=== PATIENT | male | born 1940 | race African-American/Black ===

== ENCOUNTER 2019-06-10 14:22 | Inpatient (IN) | payer MEDICAID ==
[~2019-06-10] VITALS: Ht 162.6 cm; Wt 68.0 kg
[2019-06-10] MEDS: Metoprolol Tartrate 100mg tab GT SCH ×2 (09:00→22:03)
[2019-06-10 14:22] VITALS: BP 155/54
--- NOTE | 2019-06-10 14:22 | NUR ---
ED Nurse Note: Pt arrived with [facility] 280 from SNF due edema. pt has a trach. pt is aox0. pt is responsive to pain. pt iv line established patent and intact. RT at bedside. pt kat catheter placed; patent and draining. pt laced on monitor. swabs completed.
--- NOTE | 2019-06-10 14:39 | Emergency Room Report ---
History of Present Illness General Chief Complaint: Abnormal Labs Source: EMS Present Illness HPI 78-year-old male history of pneumonia, subdural hematoma, bedbound, tracheostomy dependent presented for abnormal laboratory studies. Apparently patient had outpatient laboratory studies yesterday showing elevated BUN and creatinine. Patient was also noted to be edematous diffusely. There was no reported fever. History is otherwise limited due to patient's baseline mental status. Allergies: Coded Allergies: No Known Allergies (Unverified , 06/10/19) COVID-19 Screening Contact w/high risk pt: No Recent Travel to affected area: No Experienced COVID-19 symptoms?: No Patient History Reviewed Nursing Documentation: PMH: Agreed; PSxH: Agreed Nursing Documentation-PMH Hx Hypertension: Yes Hx Diabetes: Yes Review of Systems All Other Systems: limited - History limited due to patient's baseline altered mental status Physical Exam Vital Signs Date Time Temp Pulse Resp B/P (MAP) Pulse Ox O2 Delivery O2 Flow Rate FiO2 06/10/19 14:21 97.9 61 16 146/86 (106) 99 Mechanical Ventilator 4.0 Sp02 EP Interpretation: reviewed, normal General Appearance: no apparent distress, Chronically Ill Head: normocephalic, atraumatic Eyes: bilateral eye PERRL, bilateral eye EOMI ENT: hearing grossly normal, moist mucus membranes Neck: supple, other - Tracheostomy in place Respiratory: lungs clear, normal breath sounds, no respiratory distress, no retraction, no wheezing Cardiovascular #1: normal peripheral pulses, regular rate, rhythm, no murmur, edema - Diffuse anasarca noted Gastrointestinal: non tender, soft, non-distended, no guarding Neurologic: other - Patient nonverbal at baseline. Withdraws to pain, extremities contracted Skin: normal color, warm/dry Medical Decision Making Diagnostic Impression: Primary Impression: Anasarca Additional Impressions: Pulmonary edema Uremia Chronic respiratory failure ER Course MDM: Patient presented with acute on chronic kidney disease, anasarca. Differential included renal insufficiency, fluid overload, CHF, to name a few Clinical course-laboratory studies ordered. Chest x-ray ordered. Chest x-ray did demonstrate pulmonary edema. I think less likely infiltrate as patient afebrile no leukocytosis on baseline ventilator settings. Patient had diffuse edema. IV Lasix ordered. Avalos catheter in place. Patient does require admission to the hospital for diuresis. Patient admitted under his primary care physician, Dr. Ramirez. Labs - Laboratory Tests Test 06/10/19 14:42 06/10/19 15:07 06/10/19 15:50 06/10/19 15:53 Sodium Level 134 MMOL/L (136-145) L Potassium Level 3.5 MMOL/L (3.5-5.1) Chloride Level 103 MMOL/L (98-107) Carbon Dioxide Level 19 MMOL/L (21-32) L Anion Gap 12 mmol/L (5-15) Blood Urea Nitrogen 97 mg/dL (7-18) H Creatinine 1.9 MG/DL (0.55-1.30) H Estimated Glomerular Filtration Rate 34.5 mL/min (>60) Glucose Level 134 MG/DL (74-106) H Lactic Acid Level 0.80 mmol/L (0.4-2.0) Calcium Level 9.5 MG/DL (8.5-10.1) Total Bilirubin 0.4 MG/DL (0.2-1.0) Aspartate Amino Transferase (AST) 79 U/L (15-37) H Alanine Aminotransferase (ALT) 108 U/L (12-78) H Alkaline Phosphatase 528 U/L (46-116) H Total Creatine Kinase 54 U/L (26-308) Creatine Kinase MB 1.2 NG/ML (0.0-3.6) Creatine Kinase MB Relative Index 2.2 Troponin I 0.019 ng/mL (0.000-0.056) Total Protein 8.2 G/DL (6.4-8.2) Albumin 2.1 G/DL (3.4-5.0) L Globulin 6.1 g/dL Albumin/Globulin Ratio 0.3 (1.0-2.7) L Urine Color Pale yellow Urine Appearance Clear Urine pH 5 (4.5-8.0) Urine Specific [place] 1.005 (1.005-1.035) Urine Protein 2+ (NEGATIVE) H Urine Glucose (UA) Negative (NEGATIVE) Urine Ketones Negative (NEGATIVE) Urine Blood Negative (NEGATIVE) Urine Nitrite Negative (NEGATIVE) Urine Bilirubin Negative (NEGATIVE) Urine Urobilinogen Normal MG/DL (0.0-1.0) Urine Leukocyte Esterase 3+ (NEGATIVE) H Urine RBC 0-2 /HPF (0 - 0) H Urine WBC 10-15 /HPF (0 - 0) H Urine Squamous Epithelial Cells None /LPF (NONE/OCC) Urine Bacteria Few /HPF (NONE) Arterial Blood pH 7.316 (7.350-7.450) Arterial Blood Partial Pressure CO2 43.9 mmHg (35.0-45.0) Arterial Blood Partial Pressure O2 118.1 mmHg (75.0-100.0) H Arterial Blood HCO3 21.9 mmol/L (22.0-26.0) L Arterial Blood Oxygen Saturation 98.2 % (95-100) Arterial Blood Base Excess -4.1 (-2-2) L Benedict Test Positive White Blood Count 24.4 K/UL (4.8-10.8) *H Red Blood Count 3.26 M/UL (4.70-6.10) L Hemoglobin 8.9 G/DL (14.2-18.0) L Hematocrit 30.3 % (42.0-52.0) L Mean Corpuscular Volume 93 FL (80-99) Mean Corpuscular Hemoglobin 27.4 PG (27.0-31.0) Mean Corpuscular Hemoglobin Concent 29.5 G/DL (32.0-36.0) L Red Cell Distribution Width 20.2 % (11.6-14.8) H Platelet Count 378 K/UL (150-450) Mean Platelet Volume 8.0 FL (6.5-10.1) Neutrophils (%) (Auto) % (45.0-75.0) Lymphocytes (%) (Auto) % (20.0-45.0) Monocytes (%) (Auto) % (1.0-10.0) Eosinophils (%) (Auto) % (0.0-3.0) Basophils (%) (Auto) % (0.0-2.0) Neutrophils % (Manual) Pending Lymphocytes % (Manual) Pending Platelet Estimate Pending Platelet Morphology Pending On reevaluation: Patient's condition remained the same. IV Lasix had been given. Plan-plan to admit to the stepdown unit EKG Diagnostic Results Rate: normal Rhythm: other - Paced rhythm ST Segments: no acute changes Other Impression Abnormal EKG Chest X-Ray Diagnostic Results Chest X-Ray Diagnostic Results : Chest X-Ray Ordered: Yes # of Views/Limited/Complete: 1 View Indication: Shortness of Breath EP Interpretation: Yes Interpretation: other - Bilateral pulmonary edema with bilateral effusions. Impression: Other - Pulmonary edema Electronically Signed by: Estevan Watkins MD Last Vital Signs Date Time Temp Pulse Resp B/P (MAP) Pulse Ox O2 Delivery O2 Flow Rate FiO2 06/10/19 14:21 97.9 61 16 146/86 (106) 99 Mechanical Ventilator 4.0 Status: unchanged Disposition: ADMITTED INPATIENT Condition: Serious Estevan Watkins M.D. June 10, 2019 14:39
--- NOTE | 2019-06-10 15:00 | NUR ---
ED Nurse Note: urine, blood, culture specimen collected and sent to lab
[2019-06-10] MEDS ORDERED: METOPROLOL TAR100 MG ORAL (15:22)
[2019-06-10] MEDS ORDERED: LOSARTAN POTASS50 MG ORAL (15:22)
[2019-06-10] MEDS ORDERED: PROTONIX40 MG ORAL (15:22)
[2019-06-10] MEDS ORDERED: FERROUS SULFAT325 MG ORAL (15:22)
[2019-06-10] MEDS ORDERED: EPOGEN10000 UNIT SUBQ (15:22)
[2019-06-10] MEDS ORDERED: ASCORBIC ACID500 MG ORAL (15:22)
[2019-06-10] MEDS ORDERED: MULTIVITAMINS1 EAC8 ORAL (15:22)
[2019-06-10] MEDS ORDERED: HYDRALAZINE HC100 MG ORAL (15:22)
[2019-06-10] MEDS ORDERED: NEPHROVITE1 TAB ORAL (15:22)
[2019-06-10] MEDS ORDERED: HUMALOG100 UNIT/4 SUBQ (15:22)
[2019-06-10] MEDS ORDERED: PROBIOTIC1 EAC2 PO (15:22)
[2019-06-10] MEDS ORDERED: POTASSIUM CHLO20 ME3 PO (15:22)
--- NOTE | 2019-06-10 15:27 | NUR ---
ED Nurse Note: xray at bedside
[2019-06-10 15:33] LABS: APPEARANCE,URINE CLEAR; BILIRUBIN, URINE NEGATIVE (NEGATIVE); COLOR,URINE PALE YELLOW; GLUCOSE, URINE (UA) NEGATIVE (NEGATIVE); KETONES,URINE NEGATIVE (NEGATIVE); LEUKOCYTE ESTERASE ,URINE 3+ (NEGATIVE); NITRITE,URINE NEGATIVE (NEGATIVE); PH,URINE 5 (4.5-8.0); PROTEIN,URINE 2+ (NEGATIVE); UROBILINOGEN,URINE NORMAL MG/DL (0.0-1.0)
[2019-06-10 15:40] LABS: ANION GAP 12 mmol/L (5-15); BLOOD UREA NITROGEN 97 mg/dL (7-18); CALCIUM 9.5 MG/DL (8.5-10.1); CARBON DIOXIDE 19 MMOL/L (21-32); CHLORIDE 103 MMOL/L (98-107); CREATININE 1.9 MG/DL (0.55-1.30); POTASSIUM 3.5 MMOL/L (3.5-5.1); SODIUM 134 MMOL/L (136-145)
--- NOTE | 2019-06-10 15:50 | NUR ---
ED Nurse Note: TO G per ermd
[2019-06-10 15:55] LABS: ALANINE AMINOTRANSFERASE 108 U/L (12-78); ALBUMIN 2.1 G/DL (3.4-5.0); ALBUMIN/GLOBULIN RATIO 0.3 (1.0-2.7); ALKALINE PHOSPHATASE 528 U/L (46-116); ASPARTATE AMINO TRANSFERASE 79 U/L (15-37); BILIRUBIN,TOTAL 0.4 MG/DL (0.2-1.0); CKMB 1.2 NG/ML (0.0-3.6); CREATINE KINASE 54 U/L (26-308)
--- NOTE | 2019-06-10 16:02 | Diagnostic Imaging Report ---
EXAM: XR Chest, 1 View CLINICAL HISTORY: SOB TECHNIQUE: Frontal view of the chest. COMPARISON: None FINDINGS: Hardware: Tracheostomy tube terminates in the region of the upper/mid thoracic trachea. Lungs/pleura: Bilateral pleural effusions. Opacities throughout right greater than left lungs, concerning for pulmonary edema and/or infectious/inflammatory process. Heart/mediastinum: Mild enlargement of the cardiac silhouette. Atherosclerotic calcifications of the aorta. Left-sided pacemaker. Soft tissues: Unremarkable. Bones: No acute fracture. Degenerative changes of the spine Upper abdomen: Normal. IMPRESSION: Bilateral pleural effusions. Opacities throughout right greater than left lungs, concerning for pulmonary edema and/or infectious/inflammatory process.
[2019-06-10 16:20] VITALS: BP 141/50
[2019-06-10 16:23] LABS: HEMATOCRIT 30.3 % (42.0-52.0); HEMOGLOBIN 8.9 G/DL (14.2-18.0); MEAN CORPUSCULAR VOLUME 93 FL (80-99); PLATELET COUNT 378 K/UL (150-450); RED BLOOD COUNT 3.26 M/UL (4.70-6.10); RED CELL DISTRIBUTION WIDTH 20.2 % (11.6-14.8)
[2019-06-10 16:25] LABS: WHITE BLOOD COUNT 24.4 K/UL (4.8-10.8)
--- NOTE | 2019-06-10 16:30 | NUR ---
ED Nurse Note: Pt in bed, VSS, NAD noted.
--- NOTE | 2019-06-10 17:11 | NUR ---
ED Nurse Note: telephone report given to TAMICA Olvera
--- NOTE | 2019-06-10 17:25 | NUR ---
TRANSFER TO FLOOR: Patient transferred to [facility] as ordered, per ermd. Report given to kyle najera. Myriam has no belongings
--- NOTE | 2019-06-10 18:05 | NUR ---
NURSE NOTES: Received patient report from TAMICA Lundberg from ER. Patient came in by juan. alarm security or surveillance monitor initiatiated, physical assessment done, wound pictures taken and uploaded, and vital signs taken and recorded. Under the care of Dr. Sparrow. No belongings found. Will call Dr. Sparrow for admission order.
[2019-06-10 18:44] VITALS: BP 147/79
--- NOTE | 2019-06-10 19:09 | NUR ---
HAND-OFF: Report given to HALEIGH DAVEY.
[2019-06-10 20:00] VITALS: BP 146/65
--- NOTE | 2019-06-10 20:20 | NUR ---
NURSE NOTES: Called Attending and left message for Admission orders, awaiting for call back/
--- NOTE | 2019-06-10 20:45 | NUR ---
NURSE NOTES: Admission ordered received from Dr. Mccurdy
--- NOTE | 2019-06-10 20:51 | History & Physical ---
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 Patient noted to be edematous, no reported fever. History is otherwise limited due to patient's baseline mental status. Chronically altered mental status, Ventilator Dependant. Allergies: No Known Allergies Past Medical History Hypertension, Diabetes, previous pneumonia, subdural hematoma, bedbound, tracheostomy dependent Hx Diabetes: Yes All Other Systems: limited - History limited due to patient's baseline altered mental status Physical Exam Vital Signs Noted Date Time Temp Pulse Resp B/P (MAP) Pulse Ox O2 Delivery O2 Flow Rate FiO2 06/10/19 14:21 97.9 61 16 146/86 (106) 99 Mechanical Ventilator 4.0 General Appearance: no apparent distress, Chronically Ill appearing. On Ventilatir Head: normocephalic, atraumatic Eyes: bilateral eye PERRL, bilateral eye EOMI ENT: hearing grossly normal, moist mucus membranes Neck: supple, other - Tracheostomy in place Respiratory: lungs clear, normal breath sounds, no respiratory distress, no retraction, no wheezing Cardiovascular : normal peripheral pulses, regular rate, rhythm,, HS1, HS2, RRR , no murmur, edema - Diffuse anasarca noted Gastrointestinal: non tender, soft, non-distended, no guarding Neurologic: other - Patient nonverbal at baseline. Withdraws to pain, extremities contracted Skin: normal color, warm/dry Impression: Anasarca Pulmonary edema Uremia Chronic respiratory failure on Ventilator Hypertension Diabetes Previous pneumonia Subdural hematoma Bedbound Tracheostomy dependent Plan [employer] Medications AC ventilator settings as previously ABG Adjust FIO2 PRN IV Lasix G tube feeds PPX Monitor labs Renal US Echocardiogram Laboratory Tests Test 06/10/19 14:42 06/10/19 15:07 06/10/19 15:50 06/10/19 15:53 Sodium Level 134 MMOL/L (136-145) L Potassium Level 3.5 MMOL/L (3.5-5.1) Chloride Level 103 MMOL/L (98-107) Carbon Dioxide Level 19 MMOL/L (21-32) L Anion Gap 12 mmol/L (5-15) Blood Urea Nitrogen 97 mg/dL (7-18) H Creatinine 1.9 MG/DL (0.55-1.30) H Estimated Glomerular Filtration Rate 34.5 mL/min (>60) Glucose Level 134 MG/DL (74-106) H Lactic Acid Level 0.80 mmol/L (0.4-2.0) Calcium Level 9.5 MG/DL (8.5-10.1) Total Bilirubin 0.4 MG/DL (0.2-1.0) Aspartate Amino Transferase (AST) 79 U/L (15-37) H Alanine Aminotransferase (ALT) 108 U/L (12-78) H Alkaline Phosphatase 528 U/L (46-116) H Total Creatine Kinase 54 U/L (26-308) Creatine Kinase MB 1.2 NG/ML (0.0-3.6) Creatine Kinase MB Relative Index 2.2 Troponin I 0.019 ng/mL (0.000-0.056) Total Protein 8.2 G/DL (6.4-8.2) Albumin 2.1 G/DL (3.4-5.0) L Globulin 6.1 g/dL Albumin/Globulin Ratio 0.3 (1.0-2.7) L Urine Color Pale yellow Urine Appearance Clear Urine pH 5 (4.5-8.0) Urine Specific [place] 1.005 (1.005-1.035) Urine Protein 2+ (NEGATIVE) H Urine Glucose (UA) Negative (NEGATIVE) Urine Ketones Negative (NEGATIVE) Urine Blood Negative (NEGATIVE) Urine Nitrite Negative (NEGATIVE) Urine Bilirubin Negative (NEGATIVE) Urine Urobilinogen Normal MG/DL (0.0-1.0) Urine Leukocyte Esterase 3+ (NEGATIVE) H Urine RBC 0-2 /HPF (0 - 0) H Urine WBC 10-15 /HPF (0 - 0) H Urine Squamous Epithelial Cells None /LPF (NONE/OCC) Urine Bacteria Few /HPF (NONE) Arterial Blood pH 7.316 (7.350-7.450) Arterial Blood Partial Pressure CO2 43.9 mmHg (35.0-45.0) Arterial Blood Partial Pressure O2 118.1 mmHg (75.0-100.0) H Arterial Blood HCO3 21.9 mmol/L (22.0-26.0) L Arterial Blood Oxygen Saturation 98.2 % (95-100) Arterial Blood Base Excess -4.1 (-2-2) L Benedict Test Positive White Blood Count 24.4 K/UL (4.8-10.8) *H Red Blood Count 3.26 M/UL (4.70-6.10) L Hemoglobin 8.9 G/DL (14.2-18.0) L Hematocrit 30.3 % (42.0-52.0) L Mean Corpuscular Volume 93 FL (80-99) Mean Corpuscular Hemoglobin 27.4 PG (27.0-31.0) Mean Corpuscular Hemoglobin Concent 29.5 G/DL (32.0-36.0) L Red Cell Distribution Width 20.2 % (11.6-14.8) H Platelet Count 378 K/UL (150-450) Mean Platelet Volume 8.0 FL (6.5-10.1) Neutrophils (%) (Auto) % (45.0-75.0) Lymphocytes (%) (Auto) % (20.0-45.0) Monocytes (%) (Auto) % (1.0-10.0) Eosinophils (%) (Auto) % (0.0-3.0) Basophils (%) (Auto) % (0.0-2.0) Neutrophils % (Manual) Pending Lymphocytes % (Manual) Pending Platelet Estimate Pending Platelet Morphology Pending EKG:Rate: normal Rhythm: other - Paced rhythm ST Segments: no acute changes Chest X-Ray - Bilateral pulmonary edema with bilateral effusions. Kenny Mccurdy MD June 10, 2019 20:51
--- NOTE | 2019-06-10 21:40 | NUR ---
NURSE NOTES: 24hour urine start time at 06/10 at 0700 to 06/[address] Abrams orders.
[2019-06-10] MEDS: NovoLOG Insulin Flexpen SUBQ SCH (22:00)
--- NOTE | 2019-06-10 22:00 | NUR ---
NURSE NOTES: All due medications given. Repositioned and suctioned patient along with oral care. Patient has small BM. Patient was cleaned and new linen applied. Patient is afebrile. Pulses present.
[2019-06-10] MEDS: Atorvastatin 20mg tab GT SCH (22:03)
[2019-06-10] MEDS: Heparin 5000 units/ml inj SUBQ SCH (22:04)
[2019-06-11] VITALS: BP 156/75
--- NOTE | 2019-06-11 | NUR ---
NURSE NOTES: Repositioned patient and provided oral care. Vitals are stable and patient remains afebrile. NAD at this time. Urine bag is bright red. Will continue to monitor.
--- NOTE | 2019-06-11 02:00 | NUR ---
NURSE NOTES: Patient repositioned and suctioned. Pulses are present. No new change.
[2019-06-11 04:00] VITALS: BP 154/76
--- NOTE | 2019-06-11 04:00 | NUR ---
NURSE NOTES: Blood drawn and am care performed, Oral care and suctioned patient. Afebrile. Vitals are stable. Patient still making bright red urine. NAD at this time. Patient is clean and dry. Pulses present.
[2019-06-11] MEDS: NovoLOG Insulin Flexpen SUBQ SCH ×4 (05:30→23:16)
[2019-06-11 06:32] LABS: HEMATOCRIT 30.1 % (42.0-52.0); HEMOGLOBIN 9.5 G/DL (14.2-18.0); MEAN CORPUSCULAR VOLUME 87 FL (80-99); PLATELET COUNT 432 K/UL (150-450); RED BLOOD COUNT 3.45 M/UL (4.70-6.10); RED CELL DISTRIBUTION WIDTH 18.6 % (11.6-14.8)
[2019-06-11 06:56] LABS: WHITE BLOOD COUNT 29.4 K/UL (4.8-10.8)
--- NOTE | 2019-06-11 06:56 | NUR ---
RESPIRATORY NOTE: received pt on vent, trached with shiley [address], secured via trach tie. vent settings in place as ordered. no signs of resp distress at this time. secretions when sxn'd are small pale-white and thick. alarms are on and audible with ambu bag at bedside. vent is plugged into the red outlet. will cont to monitor throughout the day.
[2019-06-11 06:58] LABS: ALANINE AMINOTRANSFERASE 91 U/L (12-78); ALBUMIN 2.1 G/DL (3.4-5.0); ALBUMIN/GLOBULIN RATIO 0.3 (1.0-2.7); ALKALINE PHOSPHATASE 474 U/L (46-116); ANION GAP 11 mmol/L (5-15); ASPARTATE AMINO TRANSFERASE 50 U/L (15-37); BILIRUBIN,TOTAL 0.3 MG/DL (0.2-1.0); BLOOD UREA NITROGEN 103 mg/dL (7-18); CALCIUM 9.9 MG/DL (8.5-10.1); CARBON DIOXIDE 23 MMOL/L (21-32); CHLORIDE 103 MMOL/L (98-107); POTASSIUM 2.9 MMOL/L (3.5-5.1); SODIUM 137 MMOL/L (136-145)
--- NOTE | 2019-06-11 07:21 | NUR ---
NURSE NOTES: Received report from Americo DAVEY. Pt in bed awake and unable to follow the direction. No c/o pain. IV site in RAC 20G SL patent and asymptomatic. HOB elevated with greater than 30 degree, call light within easy reach. Side railsx3 up for safety. On vent setting with [id number]% peep 5 with trach Shiley 8 patent and asymptomatic. Sating 98%. G-tube in tact and patent running with Nephro @45ml/hr. Noted pace maker with SR w/v-paced. Will continue plan of care.
--- NOTE | 2019-06-11 07:21 | NUR ---
HAND-OFF: Report given to Cale Marshall RN.
[2019-06-11 08:00] VITALS: BP 154/70
[2019-06-11] MEDS ORDERED: Metoprolol Tartrate 100mg tab ORAL SCH (09:00)
[2019-06-11] MEDS: Nephrovite tab (Rena-Vite) GT SCH (09:03)
[2019-06-11] MEDS: Ascorbic Acid 500mg tab GT SCH (09:03)
[2019-06-11] MEDS: Metoprolol Tartrate 100mg tab GT SCH ×2 (09:04→20:33)
[2019-06-11] MEDS: Ferrous Sulfate 300 MG/5 ML UDC NG SCH ×3 (09:04→17:36)
[2019-06-11] MEDS: Multivitamins W/Minerals 15 ML UDC GT SCH (09:04)
[2019-06-11] MEDS: Heparin 5000 units/ml inj SUBQ SCH ×2 (09:06→20:36)
[2019-06-11] MEDS: Pantoprazole Inj IVP SCH (09:07)
--- NOTE | 2019-06-11 10:00 | NUR ---
NURSE NOTES: Made aware of A-fob and pacemaker on EKG. No cardiology consult needed at this time per Dr. Mccurdy
--- NOTE | 2019-06-11 10:00 | NUR ---
NURSE NOTES: Made Dr. Mccurdy aware of critical values of blood test. ID consult with Dr. Lyle ordered. Made Dr. De Leon aware who covers Dr. Lyle today
--- NOTE | 2019-06-11 10:20 | NUR ---
NURSE NOTES: Made Dr. Frank aware of K+ 2.9 today. KCL 40mEq x1 ordered
[2019-06-11 11:39] VITALS: BP 147/60
[2019-06-11] MEDS: Piperacillin/Tazobactam 3.375 GM in NS 110 ML IVPB SCH ×2 (11:45→23:14)
[2019-06-11] MEDS ORDERED: Piperacillin/Tazobactam 3.375 GM in NS 110 ML IVPB SCH (12:00)
--- NOTE | 2019-06-11 13:21 | NUR ---
NURSE NOTES: Made Nilay Leon aware of critical value of preliminary blood cx results. Vancomycin ordered to continue as scheduled.
[2019-06-11] MEDS ORDERED: Vancomycin 1 GM in D5W 275 ML IVPB SCH (14:00)
[2019-06-11 16:00] VITALS: BP 137/63
--- NOTE | 2019-06-11 18:00 | Consultation ---
DATE OF CONSULTATION: 06/11/2019 INFECTIOUS DISEASES CONSULTATION CONSULTING PHYSICIAN: Real De Leon MD. PRIMARY ATTENDING PHYSICIAN: Kain Ramirez MD. REASON FOR CONSULTATION: Pneumonia, leukocytosis. HISTORY OF PRESENT ILLNESS: The patient is a 78-year-old male admitted yesterday from snf facility because of abnormal labs. He had increase in BUN and creatinine. The patient had leukocytosis of 24.4 yesterday that increased today to 29.4. No fever. He has chronic respiratory failure and is not a source of history. PAST MEDICAL HISTORY: Significant for subdural hematoma, ventilator-dependent respiratory failure, diabetes mellitus, hypertension, anemia, status post tracheostomy, status post G-tube placement. ALLERGIES: No known drug allergies. MEDICATIONS: Epogen, vancomycin, Zosyn, insulin, potassium chloride, ferrous sulfate, multivitamin, Nephro-Eileen, Lasix, Tylenol, atorvastatin, heparin, metoprolol. SOCIAL HISTORY: . residential resident. No other history obtainable. PHYSICAL EXAMINATION: VITAL SIGNS: Temperature 97.9, pulse 77, blood pressure 154/70. GENERAL APPEARANCE: Seems to have normal weight. HEAD AND NECK: Status post tracheostomy. HEART: Normal rate. LUNGS: On mechanical ventilator. ABDOMEN: Soft. EXTREMITIES: Has edema. LABORATORY AND DIAGNOSTIC DATA: WBC 29.4, hemoglobin 9.5, hematocrit 30.1, platelets 432. Sodium 137, potassium 2.9, chloride 103, bicarb 23, BUN 103, creatinine 2, glucose is 173, has elevated transaminase. AST, and ALT and alkaline phosphatase are elevated. Elevated BNP 5313. Albumin is 2.1. Cultures are pending. Chest x-ray showed bilateral effusion,congestion versus infiltrate. IMPRESSION: Pneumonia, we will try to rule out COVID-19 because of residence in the nursing facility, has leukocytosis, renal failure, ventilator-dependent respiratory failure, anemia, elevated transaminase, anasarca, diabetes mellitus, hypertension. RECOMMENDATION: We will follow up the COVID-19. We will continue with Zosyn and vancomycin. We will follow up the cultures. At the end of my exam, I thank Dr. Ramirez, for involving me in the care of this patient. Case was discussed with Dr. Mccurdy who covers from Dr. Ramirez. Real De Leon M.D. DR: Sofie JOB#: [id number] CC: MEG
--- NOTE | 2019-06-11 18:36 | Pulmonology Progress Note ---
Assessment/Plan Assessment/Plan Pulmonary Progress Note HPI Patient is a 78-year-old male, Alf Resident, history of pneumonia, subdural hematoma, bedbound, tracheostomy dependent presented for abnormal laboratory studies with elevated BUN and creatinine. Patient noted to be edematous, no reported fever. History is otherwise limited due to patient's baseline mental status. Chronically altered mental status, Ventilator Dependant. On antibiotics per ID Allergies: No Known Allergies Past Medical History Hypertension, Diabetes, previous pneumonia, subdural hematoma, bedbound, tracheostomy dependent Hx Diabetes: Yes All Other Systems: limited - History limited due to patient's baseline altered mental status Physical Exam Vital Signs Noted General Appearance: no apparent distress, Chronically Ill appearing. On Ventilatir Head: normocephalic, atraumatic Eyes: bilateral eye PERRL, bilateral eye EOMI ENT: hearing grossly normal, moist mucus membranes Neck: supple, other - Tracheostomy in place Respiratory: lungs clear, normal breath sounds, no respiratory distress, no retraction, no wheezing Cardiovascular : normal peripheral pulses, regular rate, rhythm,, HS1, HS2, RRR , no murmur, edema - Diffuse anasarca noted Gastrointestinal: non tender, soft, non-distended, no guarding Neurologic: other - Patient nonverbal at baseline. Withdraws to pain, extremities contracted Skin: normal color, warm/dry Impression: Anasarca Pulmonary edema Uremia Chronic respiratory failure on Ventilator Hypertension Diabetes Previous pneumonia Subdural hematoma Bedbound Tracheostomy dependent Plan IV AB per ID [facility]IDENT [place] Medications AC ventilator settings as previously ABG Adjust FIO2 PRN IV Lasix, KCL given G tube feeds PPX Monitor labs Renal US, renal consulted Echocardiogram Laboratory Tests Test 06/10/19 14:42 06/10/19 15:07 06/10/19 15:50 06/10/19 15:53 Sodium Level 134 MMOL/L (136-145) L Potassium Level 3.5 MMOL/L (3.5-5.1) Chloride Level 103 MMOL/L (98-107) Carbon Dioxide Level 19 MMOL/L (21-32) L Anion Gap 12 mmol/L (5-15) Blood Urea Nitrogen 97 mg/dL (7-18) H Creatinine 1.9 MG/DL (0.55-1.30) H Estimated Glomerular Filtration Rate 34.5 mL/min (>60) Glucose Level 134 MG/DL (74-106) H Lactic Acid Level 0.80 mmol/L (0.4-2.0) Calcium Level 9.5 MG/DL (8.5-10.1) Total Bilirubin 0.4 MG/DL (0.2-1.0) Aspartate Amino Transferase (AST) 79 U/L (15-37) H Alanine Aminotransferase (ALT) 108 U/L (12-78) H Alkaline Phosphatase 528 U/L (46-116) H Total Creatine Kinase 54 U/L (26-308) Creatine Kinase MB 1.2 NG/ML (0.0-3.6) Creatine Kinase MB Relative Index 2.2 Troponin I 0.019 ng/mL (0.000-0.056) Total Protein 8.2 G/DL (6.4-8.2) Albumin 2.1 G/DL (3.4-5.0) L Globulin 6.1 g/dL Albumin/Globulin Ratio 0.3 (1.0-2.7) L Urine Color Pale yellow Urine Appearance Clear Urine pH 5 (4.5-8.0) Urine Specific [place] 1.005 (1.005-1.035) Urine Protein 2+ (NEGATIVE) H Urine Glucose (UA) Negative (NEGATIVE) Urine Ketones Negative (NEGATIVE) Urine Blood Negative (NEGATIVE) Urine Nitrite Negative (NEGATIVE) Urine Bilirubin Negative (NEGATIVE) Urine Urobilinogen Normal MG/DL (0.0-1.0) Urine Leukocyte Esterase 3+ (NEGATIVE) H Urine RBC 0-2 /HPF (0 - 0) H Urine WBC 10-15 /HPF (0 - 0) H Urine Squamous Epithelial Cells None /LPF (NONE/OCC) Urine Bacteria Few /HPF (NONE) Arterial Blood pH 7.316 (7.350-7.450) Arterial Blood Partial Pressure CO2 43.9 mmHg (35.0-45.0) Arterial Blood Partial Pressure O2 118.1 mmHg (75.0-100.0) H Arterial Blood HCO3 21.9 mmol/L (22.0-26.0) L Arterial Blood Oxygen Saturation 98.2 % (95-100) Arterial Blood Base Excess -4.1 (-2-2) L Benedict Test Positive White Blood Count 24.4 K/UL (4.8-10.8) *H Red Blood Count 3.26 M/UL (4.70-6.10) L Hemoglobin 8.9 G/DL (14.2-18.0) L Hematocrit 30.3 % (42.0-52.0) L Mean Corpuscular Volume 93 FL (80-99) Mean Corpuscular Hemoglobin 27.4 PG (27.0-31.0) Mean Corpuscular Hemoglobin Concent 29.5 G/DL (32.0-36.0) L Red Cell Distribution Width 20.2 % (11.6-14.8) H Platelet Count 378 K/UL (150-450) Mean Platelet Volume 8.0 FL (6.5-10.1) Neutrophils (%) (Auto) % (45.0-75.0) Lymphocytes (%) (Auto) % (20.0-45.0) Monocytes (%) (Auto) % (1.0-10.0) Eosinophils (%) (Auto) % (0.0-3.0) Basophils (%) (Auto) % (0.0-2.0) Neutrophils % (Manual) Pending Lymphocytes % (Manual) Pending Platelet Estimate Pending Platelet Morphology Pending EKG:Rate: normal Rhythm: other - Paced rhythm ST Segments: no acute changes Chest X-Ray - Bilateral pulmonary edema with bilateral effusions. Subjective ROS Limited/Unobtainable: No Allergies: Coded Allergies: No Known Allergies (Unverified , 06/10/19) Objective Last 24 Hour Vital Signs Date Time Temp Pulse Resp B/P (MAP) Pulse Ox O2 Delivery O2 Flow Rate FiO2 06/11/19 16:56 67 20 35 06/11/19 16:00 98.0 69 16 137/63 (87) 100 06/11/19 16:00 67 06/11/19 16:00 35 06/11/19 15:14 68 21 35 06/11/19 12:49 65 18 35 06/11/19 12:00 Mechanical Ventilator 06/11/19 12:00 35 06/11/19 12:00 64 06/11/19 11:39 98.2 67 24 147/60 (89) 99 06/11/19 11:02 65 20 35 06/11/19 09:04 77 154/70 06/11/19 08:55 77 22 35 06/11/19 08:00 97.9 81 24 154/70 (98) 99 06/11/19 08:00 35 06/11/19 08:00 Mechanical Ventilator 06/11/19 08:00 77 06/11/19 06:53 75 20 35 06/11/19 05:30 70 18 35 06/11/19 04:00 Mechanical Ventilator 06/11/19 04:00 35 06/11/19 04:00 99.5 79 24 154/76 (102) 100 06/11/19 03:35 72 06/11/19 03:30 71 19 35 06/11/19 00:32 65 20 35 06/11/19 00:00 35 06/11/19 00:00 99.1 85 20 156/75 (102) 100 06/11/19 00:00 Mechanical Ventilator 06/10/19 23:34 67 06/10/19 23:17 68 22 35 06/10/19 22:03 65 148/63 06/10/19 20:50 69 18 35 06/10/19 20:00 98.6 75 21 146/65 (92) 100 06/10/19 20:00 Mechanical Ventilator 06/10/19 20:00 35 06/10/19 19:30 66 23 35 06/10/19 19:14 68 06/10/19 19:04 Mechanical Ventilator 06/10/19 18:46 68 06/10/19 18:44 97.9 65 18 147/79 (101) 98 Intake and Output 06/10/19 06/11/19 19:00 07:00 Intake Total 465 ml Output Total 300 ml 1250 ml Balance -300 ml -785 ml Intake Free Water 60 ml Tube Feeding 405 ml Output Urine Total 300 ml 1250 ml # Bowel Movements 2 Microbiology Date/Time Source Procedure Growth Status 06/10/19 14:45 Blood Blood Culture - Preliminary Resulted 06/10/19 15:07 Urine,Clean Catch Urine Culture - Preliminary NO GROWTH Resulted 06/10/19 15:07 Rectum Received Laboratory Tests 06/11/19 04:00: White Blood Count 29.4*H, Red Blood Count 3.45L, Hemoglobin 9.5L, Hematocrit 30.1L, Mean Corpuscular Volume 87, Mean Corpuscular Hemoglobin 27.4, Mean Corpuscular Hemoglobin Concent 31.4L, Red Cell Distribution Width 18.6H, Platelet Count 432, Mean Platelet Volume 6.0L, Neutrophils (%) (Auto) , Lymphocytes (%) (Auto) , Monocytes (%) (Auto) , Eosinophils (%) (Auto) , Basophils (%) (Auto) , Differential Total Cells Counted 100, Neutrophils % ( Manual) 86H, Lymphocytes % (Manual) 6L, Monocytes % (Manual) 8, Eosinophils % ( Manual) 0, Basophils % (Manual) 0, Band Neutrophils 0, Platelet Estimate Adequate, Platelet Morphology Normal, Hypochromasia 1+, Anisocytosis 1+, Sodium Level 137, Potassium Level 2.9L, Chloride Level 103, Carbon Dioxide Level 23, Anion Gap 11, Blood Urea Nitrogen 103H, Creatinine 2.0H, Estimat Glomerular Filtration Rate 39.5, Glucose Level 173H, Hemoglobin A1c 5.3, Calcium Level 9.9 , Total Bilirubin 0.3, Aspartate Amino Transf (AST/SGOT) 50H, Alanine Aminotransferase (ALT/SGPT) 91H, Alkaline Phosphatase 474H, Pro-B-Type Natriuretic Peptide 5313H, Total Protein 8.3H, Albumin 2.1L, Globulin 6.2, Albumin/Globulin Ratio 0.3L, Thyroid Stimulating Hormone (TSH) 3.044 Current Medications Medications (Trade) Dose Ordered Sig/Leonel Route PRN Reason Start Time Stop Time Status Last Admin Dose Admin Acetaminophen (Tylenol) 650 mg Q4H PRN NG Temp >100.5 06/10/19 21:00 07/10/19 20:59 Ascorbic Acid (Vitamin C) 500 mg DAILY GT 06/11/19 09:00 07/11/19 08:59 06/11/19 09:03 Atorvastatin Calcium (Lipitor) 40 mg BEDTIME GT 06/10/19 21:00 09/08/19 20:59 06/10/19 22:03 Dextrose (Dextrose 50%) 25 ml Q30M PRN IV Hypoglycemia 06/10/19 21:00 09/08/19 20:59 Dextrose (Dextrose 50%) 50 ml Q30M PRN IV Hypoglycemia 06/10/19 21:00 09/08/19 20:59 Epoetin Andreas (Epoetin Andreas-EPBX(NON ESRD)) 10,000 unit WED-WED-WED SUBQ 06/12/19 21:00 09/10/19 20:59 Ferrous Sulfate (Feosol) 330 mg THREE TIMES A DAY NG 06/11/19 09:00 09/09/19 08:59 06/11/19 17:36 Furosemide (Lasix) 80 mg EVERY 12 HOURS IV 06/11/19 09:00 07/11/19 08:59 06/11/19 09:05 Heparin Sodium (Porcine) (Heparin 5000 units/ml) 5,000 units EVERY 12 HOURS SUBQ 06/10/19 21:00 07/25/19 20:59 06/11/19 09:06 Insulin Aspart (NovoLOG) Q6HR SUBQ 06/11/19 12:00 09/08/19 21:59 06/11/19 17:45 Metoprolol Tartrate (Lopressor) 100 mg Q12HR GT 06/10/19 09:00 09/08/19 08:59 06/11/19 09:04 Multivitamins (Multivitamins W/ Minerals 15ml Liquid) 15 ml DAILY GT 06/11/19 09:00 07/11/19 08:59 06/11/19 09:04 Pantoprazole (Protonix) 40 mg DAILY IVP 06/11/19 09:00 07/11/19 08:59 06/11/19 09:07 Piperacillin Sod/ Tazobactam Sod 3.375 gm/Sodium Chloride 110 ml @ 27.5 mls/hr Q12H IVPB 06/11/19 12:00 06/18/19 11:59 06/11/19 11:45 Potassium Chloride (K-Dur) 20 meq TWICE A DAY GT 06/11/19 09:00 09/09/19 08:59 06/11/19 17:36 Vancomycin HCl (Vanco rx to dose) 1 ea DAILY PRN MISC Per rx protocol 06/11/19 11:00 07/11/19 10:59 Vancomycin HCl 1 gm/Dextrose 275 ml @ 183.708 mls/hr ONCE IVPB 06/11/19 14:00 06/11/19 20:00 06/11/19 13:56 Vitamin B Complex/ Vit C/Folic Acid (Nephrovite) 1 tab DAILY GT 06/11/19 09:00 07/11/19 08:59 06/11/19 09:03 Kenny Mccurdy MD June 11, 2019 18:36
--- NOTE | 2019-06-11 19:28 | NUR ---
RESPIRATORY NOTE: Received pt on AC 16, 450VT, 35%, PEEP +5. Pt is trach-dependent w/ a cuffed, Shiley 8 tube. Pt is flat effect/obtunded. B/S ovi. rhonchi, sxn small amounts of thick/thin, clear/white to pale-yellow secretions. Vent plugged into red outlet, ambubag at bedside. Pt in no apparent distress at this time. Will continue plan of care.
--- NOTE | 2019-06-11 19:28 | NUR ---
HAND-OFF: Report given to Michelle Mata RN. Pt remains stable.
--- NOTE | 2019-06-11 19:30 | NUR ---
NURSE NOTES: Received report from TAMICA Madsen. Patient asleep, afebrile and has no respiratory distress noted. Tache to vent S8 AC16 TV 450 Fi02 35% peep 5 working well, intact and asymptomatic. On GT with Nephro at 25cc/hr infusing well. With right AC 20g IV line intact and asymptomatic. With kat catheter to urine bag draining well. Head of bed elevated. Bed rails are up and working. Continue to monitor patient
[2019-06-11 20:00] VITALS: BP 146/73
[2019-06-11] MEDS: Atorvastatin 20mg tab GT SCH (20:33)
[2019-06-12] VITALS: BP 145/71
--- NOTE | 2019-06-12 | NUR ---
NURSE NOTES: Observed pt lying in the bed. No acute distress noted at this time. Bed bath given. Oral care given. Reposition done. Will continue to monitor.
--- NOTE | 2019-06-12 00:29 | Consultation ---
DATE OF CONSULTATION: 06/11/2019 CONSULTING PHYSICIAN: Carmelo Frank MD. REFERRING PHYSICIAN: Kain Ramirez MD. REASON FOR CONSULTATION: Azotemia and anasarca. HISTORY OF PRESENT ILLNESS: The patient is ventilator dependent. There is a history of prior episodes of pneumonia, subdural hematoma, tracheostomy, chronic kidney disease stage 4, hypertension, diabetes. He is unable to provide history. He has had rise in BUN and creatinine. He has anasarca. I was asked to evaluate the patient. PERTINENT PHYSICAL FINDINGS: GENERAL: The patient is lying in bed, on the ventilator, unresponsive at this time. NECK: Has a tracheostomy. LUNGS: Clear. HEART: Regular rhythm. ABDOMEN: Soft. There is a gastrostomy. EXTREMITIES: Have 2 to 3+ edema. NEUROLOGIC: He is not responsive at this time. LABORATORY DATA: Review of pertinent laboratories had a white count of 24.4, hemoglobin 8.9 on admission. Sodium 134, potassium 3.5, chloride 103, CO2 19, BUN 97, creatinine 1.9. ALT and AST are elevated. CK is normal at 54. Albumin 2.1. TSH 3.044. Urinalysis shows 2+ protein, 3+ leukocyte esterase, 0 to 2 red cells, and 10 to 15 white cells per high power field. Chest x-ray was done showing bilateral pleural effusions, opacities through right greater than left lungs, concern for pulmonary edema and/or infectious etiology. IMPRESSION: 1. Chronic kidney disease stage 4 or 5. 2. Anasarca and fluid overload. 3. Congestive heart failure. 4. Respiratory failure. 5. Proteinuria which may or may not explain the amount of edema, he could be nephrotic. 6. Moderate protein-calorie malnutrition. PLAN: The patient will be diuresed. Replace potassium and watch his response to the above measures. He has multiorgan failure. Risk of complication is extensive. Carmelo Frank M.D. DR: Anni JOB#: [id number] CC:
[2019-06-12 04:00] VITALS: BP 142/64
[2019-06-12] MEDS: NovoLOG Insulin Flexpen SUBQ SCH ×3 (05:30→17:53)
[2019-06-12 07:21] LABS: HEMATOCRIT 28.6 % (42.0-52.0); HEMOGLOBIN 8.9 G/DL (14.2-18.0); MEAN CORPUSCULAR VOLUME 87 FL (80-99); PLATELET COUNT 428 K/UL (150-450); RED BLOOD COUNT 3.29 M/UL (4.70-6.10); RED CELL DISTRIBUTION WIDTH 18.4 % (11.6-14.8)
--- NOTE | 2019-06-12 07:25 | NUR ---
HAND-OFF: Report given to TAMICA Hughes. Pt asleep on bed, afebrile and has no respiratory distress noted.
[2019-06-12 07:33] LABS: ANION GAP 10 mmol/L (5-15); BLOOD UREA NITROGEN 103 mg/dL (7-18); CALCIUM 9.7 MG/DL (8.5-10.1); CARBON DIOXIDE 24 MMOL/L (21-32); CHLORIDE 106 MMOL/L (98-107); CREATININE 2.1 MG/DL (0.55-1.30); POTASSIUM 3.2 MMOL/L (3.5-5.1); SODIUM 140 MMOL/L (136-145)
[2019-06-12 07:43] LABS: WHITE BLOOD COUNT 23.6 K/UL (4.8-10.8)
[2019-06-12 08:00] VITALS: BP 150/67
--- NOTE | 2019-06-12 08:00 | NUR ---
NURSE NOTES: Report received from TAMICA Hi.Pt obtunded, responsive to tactile stimuli. No apparent distress at this time. Received call from Marilynn (lab) pt VRE rectum positive, will follow up with .On isolation and good hand washing done before and after care.COV swab still pending.Mouth care done, HOB elevated to prevent aspiration.Gt feeding in place nepro at 25cc tolerate well with no apparent sediment. Generalize edema and RAC /20 gauge patent with no apparent infiltrate.Turned and repositioned for skin management. Avalos catheter in place with yellowish urine and no apparent sediment nor hematuria. Will continue same care plan and follow up with labs.
--- NOTE | 2019-06-12 08:56 | Pulmonology Progress Note ---
Assessment/Plan Assessment/Plan Anasarca Pulmonary edema scrotal edema Uremia Chronic respiratory failure on Ventilator Hypertension Diabetes Previous pneumonia Subdural hematoma Bedbound Tracheostomy dependent leukocytosis possible sepsis severe PCM anemia PLAN vent support renal and ID antibiotics vent support monitor urine output feeds protein follow up closely remains ill impression, plan, and exam edited and reviewed in detail care discussed with RN Subjective ROS Limited/Unobtainable: Yes Allergies: Coded Allergies: No Known Allergies (Unverified , 06/10/19) Subjective reviewed care consultants noted Objective Last 24 Hour Vital Signs Date Time Temp Pulse Resp B/P (MAP) Pulse Ox O2 Delivery O2 Flow Rate FiO2 06/12/19 07:20 64 20 35 06/12/19 05:06 60 19 35 06/12/19 04:00 35 06/12/19 04:00 Mechanical Ventilator 06/12/19 04:00 97.7 61 16 142/64 (90) 100 06/12/19 03:30 62 06/12/19 03:05 62 20 35 06/12/19 01:17 61 18 35 06/12/19 00:03 Mechanical Ventilator 06/12/19 00:00 61 06/12/19 00:00 98.6 61 16 145/71 (95) 100 06/11/19 23:30 61 19 35 06/11/19 21:19 60 17 35 06/11/19 20:33 146 73/69 06/11/19 20:00 35 06/11/19 20:00 Mechanical Ventilator 06/11/19 20:00 98.2 72 16 146/73 (97) 100 06/11/19 19:26 69 19 35 06/11/19 19:21 70 06/11/19 16:56 67 20 35 06/11/19 16:00 98.0 69 16 137/63 (87) 100 06/11/19 16:00 Mechanical Ventilator 06/11/19 16:00 67 06/11/19 16:00 35 06/11/19 15:14 68 21 35 06/11/19 12:49 65 18 35 06/11/19 12:00 Mechanical Ventilator 06/11/19 12:00 35 06/11/19 12:00 64 06/11/19 11:39 98.2 67 24 147/60 (89) 99 06/11/19 11:02 65 20 35 06/11/19 09:04 77 154/70 06/11/19 08:55 77 22 35 Intake and Output 06/11/19 06/12/19 19:00 07:00 Intake Total 1025.000 ml 650.0 ml Output Total 1500 ml 1750 ml Balance -475.000 ml -1100.0 ml Intake Free Water 100 ml IV Total 385.000 ml 110.0 ml Tube Feeding 540 ml 540 ml Output Urine Total 1500 ml 1750 ml Objective WDWN NAD trach and gt clear breath sounds bilaterally without rhonchi or wheeze [id number] without MRG NABS nontender no HSM no CC noted edema scrotal edema nonfocal anasarca Microbiology Date/Time Source Procedure Growth Status 06/10/19 15:07 Blood Blood Culture - Preliminary NO GROWTH AFTER 24 HOURS Resulted 06/10/19 14:45 Blood Blood Culture - Preliminary Staphylococcus Sp Coag Neg Resulted 06/11/19 11:15 Indwelling Cath Urine Culture - Preliminary NO GROWTH Resulted 06/10/19 15:07 Urine,Clean Catch Urine Culture - Preliminary Resulted 06/10/19 15:07 Rectum VRE Culture - Final Enterococcus Faecalis - Vre Complete Laboratory Tests 06/12/19 04:30: White Blood Count 23.6*H, Red Blood Count 3.29L, Hemoglobin 8.9L, Hematocrit 28.6L, Mean Corpuscular Volume 87, Mean Corpuscular Hemoglobin 27.2, Mean Corpuscular Hemoglobin Concent 31.3L, Red Cell Distribution Width 18.4H, Platelet Count 428, Mean Platelet Volume 5.9L, Neutrophils (%) (Auto) , Lymphocytes (%) (Auto) , Monocytes (%) (Auto) , Eosinophils (%) (Auto) , Basophils (%) (Auto) , Neutrophils % (Manual) [Pending], Lymphocytes % (Manual) [Pending], Platelet Estimate [Pending], Platelet Morphology [Pending], Sodium Level 140, Potassium Level 3.2L, Chloride Level 106, Carbon Dioxide Level 24, Anion Gap 10, Blood Urea Nitrogen 103H, Creatinine 2.1H, Estimat Glomerular Filtration Rate 37.3, Glucose Level 158H, Calcium Level 9.7 Current Medications Medications (Trade) Dose Ordered Sig/Leonel Route PRN Reason Start Time Stop Time Status Last Admin Dose Admin Acetaminophen (Tylenol) 650 mg Q4H PRN NG Temp >100.5 06/10/19 21:00 07/10/19 20:59 Ascorbic Acid (Vitamin C) 500 mg DAILY GT 06/11/19 09:00 07/11/19 08:59 06/11/19 09:03 Atorvastatin Calcium (Lipitor) 40 mg BEDTIME GT 06/10/19 21:00 09/08/19 20:59 06/11/19 20:33 Dextrose (Dextrose 50%) 25 ml Q30M PRN IV Hypoglycemia 06/10/19 21:00 09/08/19 20:59 Dextrose (Dextrose 50%) 50 ml Q30M PRN IV Hypoglycemia 06/10/19 21:00 09/08/19 20:59 Epoetin Andreas (Epoetin Andreas-EPBX(NON ESRD)) 10,000 unit WED-WED-WED SUBQ 06/12/19 21:00 09/10/19 20:59 Ferrous Sulfate (Feosol) 330 mg THREE TIMES A DAY NG 06/11/19 09:00 09/09/19 08:59 06/11/19 17:36 Furosemide (Lasix) 80 mg EVERY 12 HOURS IV 06/11/19 09:00 07/11/19 08:59 06/11/19 20:48 Heparin Sodium (Porcine) (Heparin 5000 units/ml) 5,000 units EVERY 12 HOURS SUBQ 06/10/19 21:00 07/25/19 20:59 06/11/19 20:36 Insulin Aspart (NovoLOG) Q6HR SUBQ 06/11/19 12:00 09/08/19 21:59 06/12/19 05:30 Metoprolol Tartrate (Lopressor) 100 mg Q12HR GT 06/10/19 09:00 09/08/19 08:59 06/11/19 20:33 Multivitamins (Multivitamins W/ Minerals 15ml Liquid) 15 ml DAILY GT 06/11/19 09:00 07/11/19 08:59 06/11/19 09:04 Pantoprazole (Protonix) 40 mg DAILY IVP 06/11/19 09:00 07/11/19 08:59 06/11/19 09:07 Piperacillin Sod/ Tazobactam Sod 3.375 gm/Sodium Chloride 110 ml @ 27.5 mls/hr Q12H IVPB 06/11/19 12:00 06/18/19 11:59 06/11/19 23:14 Potassium Chloride (K-Dur) 20 meq TWICE A DAY GT 06/11/19 09:00 09/09/19 08:59 06/11/19 17:36 Vancomycin HCl (Vanco rx to dose) 1 ea DAILY PRN MISC Per rx protocol 06/11/19 11:00 07/11/19 10:59 Vitamin B Complex/ Vit C/Folic Acid (Nephrovite) 1 tab DAILY GT 06/11/19 09:00 07/11/19 08:59 06/11/19 09:03 Kain Ramirez MD June 12, 2019 08:56
[2019-06-12] MEDS: Multivitamins W/Minerals 15 ML UDC GT SCH (09:04)
[2019-06-12] MEDS: Ferrous Sulfate 300 MG/5 ML UDC NG SCH ×3 (09:04→17:45)
[2019-06-12] MEDS: Pantoprazole Inj IVP SCH (09:06)
[2019-06-12] MEDS: Ascorbic Acid 500mg tab GT SCH (09:06)
[2019-06-12] MEDS: Metoprolol Tartrate 100mg tab GT SCH ×2 (09:07→21:00)
[2019-06-12] MEDS: Nephrovite tab (Rena-Vite) GT SCH (09:07)
[2019-06-12] MEDS: Heparin 5000 units/ml inj SUBQ SCH ×2 (09:11→21:13)
--- NOTE | 2019-06-12 09:26 | NUR ---
RD ASSESSMENT & RECOMMENDATIONS SEE CARE ACTIVITY FOR COMPLETE ASSESSMENT DAILY ESTIMATED NEEDS: Needs based on Renal, critical care, wound/ 62kg 22-28 kcals/kg 6460-3693 total kcals 1-1.3 (increase w/ renal improvement) g protein/kg 62-81 g total protein 20-25 mL/kg 0818-1609 total fluid mLs NUTRITION DIAGNOSIS: * Swallowing difficulty R/T respiratory failure, dysphagia as evidenced by trach/vent dep, PEG dep * Increased kcal/prot needs R/T wound healing as evidenced by admitted w/ lt buttock open wound, pending eval. CURRENT TF:Nepro @ 45ml/hr x 24 hrs ENTERAL NUTRITION RECOMMENDATIONS: Nepro @ 40ml/hr x 24 hrs to provide 960ml, 1728kcal, 78g prot, 698ml free water * LOWER goal rate to 40ml/hr x 24 hrs : meets 100% est kcal/prot needs * HOB over 30 degrees/ water flush per MD ---- W/ consistently low K level and stable renal fxn, rec to change TF to Glucerna 1.5 @ 45ml/hr x 24 hrs to provide 1080ml, 1620kcal, 89g prot, 820ml free water ADDITIONAL RECOMMENDATIONS: * Per SNF: HT=64" WX=159 lbs (Vs EMR wt of 150lbs) -> obtain re-calibrated bedscale wt * Monitor lytes and renal fxn, need to continue Nepro * Wound healing: Continue Vit C, add Garo BID via PEG * Monitor BGs, need for additional hypoglycemics.
--- NOTE | 2019-06-12 09:57 | NUR ---
NURSE NOTES: MESSAGE LEFT TO DR HIGHTOWER REGARDING THE POTASSIUM 3.2, AWAITING CALL BACK
--- NOTE | 2019-06-12 10:05 | NUR ---
*-* INSURANCE *-* ALL AVAILABLE CLINICALS HAVE BEEN FAXED TO: [facility] [phone] Work Work Fax *-* NO INSURANCE INFORMATION IN THE BAR *-* Addendum: 06/12/19 at 1530 by DANILO HAYDEN CM ELIN tracking# [id number] ; Jessy # [phone] fax# [phone]
--- NOTE | 2019-06-12 10:21 | NUR ---
NURSE NOTES: No significant change in condition at this time, will continue same care plan.
--- NOTE | 2019-06-12 10:52 | Infectious Diseases Prog Note ---
Assessment/Plan Assessment/Plan antibiotics : vancomycin iv, zosyn A 1. pneumonia r/o COVID 19 pneumonia 2. respiratory failure 3. leucocytosis improving 4. diabetes mellitus 5. hypertension 6. renal failure 7. SDH 8. + blood cultures with coag neg staph likely contaminated P 1. continue zosyn 2. d/c iv vancomycin 3. start hydroxychloroquine 4. continue isolation Subjective ROS Limited/Unobtainable: Yes Allergies: Coded Allergies: No Known Allergies (Unverified , 06/10/19) Objective Vital Signs Last 24 Hour Vital Signs Date Time Temp Pulse Resp B/P (MAP) Pulse Ox O2 Delivery O2 Flow Rate FiO2 06/12/19 09:07 69 150/67 06/12/19 08:00 Mechanical Ventilator 06/12/19 08:00 35 06/12/19 08:00 97.7 69 18 150/67 (94) 98 06/12/19 07:20 64 20 35 06/12/19 05:06 60 19 35 06/12/19 04:00 35 06/12/19 04:00 Mechanical Ventilator 06/12/19 04:00 97.7 61 16 142/64 (90) 100 06/12/19 03:30 62 06/12/19 03:05 62 20 35 06/12/19 01:17 61 18 35 06/12/19 00:03 Mechanical Ventilator 06/12/19 00:00 61 06/12/19 00:00 98.6 61 16 145/71 (95) 100 06/11/19 23:30 61 19 35 06/11/19 21:19 60 17 35 06/11/19 20:33 146 73/69 06/11/19 20:00 35 06/11/19 20:00 Mechanical Ventilator 06/11/19 20:00 98.2 72 16 146/73 (97) 100 06/11/19 19:26 69 19 35 06/11/19 19:21 70 06/11/19 16:56 67 20 35 06/11/19 16:00 98.0 69 16 137/63 (87) 100 06/11/19 16:00 Mechanical Ventilator 06/11/19 16:00 67 06/11/19 16:00 35 06/11/19 15:14 68 21 35 06/11/19 12:49 65 18 35 06/11/19 12:00 Mechanical Ventilator 06/11/19 12:00 35 06/11/19 12:00 64 06/11/19 11:39 98.2 67 24 147/60 (89) 99 06/11/19 11:02 65 20 35 Height (Feet): 5 Height (Inches): 4.00 Weight (Pounds): 150 HEENT: status post trach Microbiology Date/Time Source Procedure Growth Status 06/10/19 15:07 Blood Blood Culture - Preliminary NO GROWTH AFTER 24 HOURS Resulted 06/10/19 14:45 Blood Blood Culture - Preliminary Staphylococcus Sp Coag Neg Resulted 06/10/19 15:07 Nasal Nares MRSA Culture - Final NO METHICILLIN RESISTANT STAPH AUREUS... Complete 06/11/19 11:15 Indwelling Cath Urine Culture - Preliminary NO GROWTH Resulted 06/10/19 15:07 Urine,Clean Catch Urine Culture - Preliminary Resulted 06/10/19 15:07 Rectum VRE Culture - Final Enterococcus Faecalis - Vre Complete Laboratory Tests Test 06/12/19 04:30 White Blood Count 23.6 K/UL (4.8-10.8) *H Red Blood Count 3.29 M/UL (4.70-6.10) L Hemoglobin 8.9 G/DL (14.2-18.0) L Hematocrit 28.6 % (42.0-52.0) L Mean Corpuscular Volume 87 FL (80-99) Mean Corpuscular Hemoglobin 27.2 PG (27.0-31.0) Mean Corpuscular Hemoglobin Concent 31.3 G/DL (32.0-36.0) L Red Cell Distribution Width 18.4 % (11.6-14.8) H Platelet Count 428 K/UL (150-450) Mean Platelet Volume 5.9 FL (6.5-10.1) L Neutrophils (%) (Auto) % (45.0-75.0) Lymphocytes (%) (Auto) % (20.0-45.0) Monocytes (%) (Auto) % (1.0-10.0) Eosinophils (%) (Auto) % (0.0-3.0) Basophils (%) (Auto) % (0.0-2.0) Differential Total Cells Counted 100 Neutrophils % (Manual) 84 % (45-75) H Lymphocytes % (Manual) 8 % (20-45) L Monocytes % (Manual) 7 % (1-10) Eosinophils % (Manual) 1 % (0-3) Basophils % (Manual) 0 % (0-2) Band Neutrophils 0 % (0-8) Platelet Estimate Adequate Platelet Morphology Normal Hypochromasia 3+ Anisocytosis 2+ Sodium Level 140 MMOL/L (136-145) Potassium Level 3.2 MMOL/L (3.5-5.1) L Chloride Level 106 MMOL/L (98-107) Carbon Dioxide Level 24 MMOL/L (21-32) Anion Gap 10 mmol/L (5-15) Blood Urea Nitrogen 103 mg/dL (7-18) H Creatinine 2.1 MG/DL (0.55-1.30) H Estimat Glomerular Filtration Rate 37.3 mL/min (>60) Glucose Level 158 MG/DL (74-106) H Calcium Level 9.7 MG/DL (8.5-10.1) Current Medications Medications (Trade) Dose Ordered Sig/Leonel Route PRN Reason Start Time Stop Time Status Last Admin Dose Admin Acetaminophen (Tylenol) 650 mg Q4H PRN NG Temp >100.5 06/10/19 21:00 07/10/19 20:59 Ascorbic Acid (Vitamin C) 500 mg DAILY GT 06/11/19 09:00 07/11/19 08:59 06/12/19 09:06 Atorvastatin Calcium (Lipitor) 40 mg BEDTIME GT 06/10/19 21:00 09/08/19 20:59 06/11/19 20:33 Dextrose (Dextrose 50%) 25 ml Q30M PRN IV Hypoglycemia 06/10/19 21:00 09/08/19 20:59 Dextrose (Dextrose 50%) 50 ml Q30M PRN IV Hypoglycemia 06/10/19 21:00 09/08/19 20:59 Epoetin Andreas (Epoetin Andreas-EPBX(NON ESRD)) 10,000 unit WED-WED-WED SUBQ 06/12/19 21:00 09/10/19 20:59 Ferrous Sulfate (Feosol) 330 mg THREE TIMES A DAY NG 06/11/19 09:00 09/09/19 08:59 06/12/19 09:04 Furosemide (Lasix) 80 mg EVERY 12 HOURS IV 06/12/19 21:00 07/11/19 20:59 Heparin Sodium (Porcine) (Heparin 5000 units/ml) 5,000 units EVERY 12 HOURS SUBQ 06/10/19 21:00 07/25/19 20:59 06/12/19 09:11 Insulin Aspart (NovoLOG) Q6HR SUBQ 06/11/19 12:00 09/08/19 21:59 06/12/19 05:30 Metoprolol Tartrate (Lopressor) 100 mg Q12HR GT 06/10/19 09:00 09/08/19 08:59 06/12/19 09:07 Multivitamins (Multivitamins W/ Minerals 15ml Liquid) 15 ml DAILY GT 06/11/19 09:00 07/11/19 08:59 06/12/19 09:04 Pantoprazole (Protonix) 40 mg DAILY IVP 06/11/19 09:00 07/11/19 08:59 06/12/19 09:06 Piperacillin Sod/ Tazobactam Sod 3.375 gm/Sodium Chloride 110 ml @ 27.5 mls/hr Q12H IVPB 06/11/19 12:00 06/18/19 11:59 06/11/19 23:14 Potassium Chloride (K-Dur) 20 meq TWICE A DAY GT 06/11/19 09:00 09/09/19 08:59 06/12/19 09:05 Vancomycin HCl (Vanco rx to dose) 1 ea DAILY PRN MISC Per rx protocol 06/11/19 11:00 07/11/19 10:59 Vitamin B Complex/ Vit C/Folic Acid (Nephrovite) 1 tab DAILY GT 06/11/19 09:00 07/11/19 08:59 06/12/19 09:07 Farnaz Lyle MD June 12, 2019 10:52
[2019-06-12] MEDS ORDERED: Hydroxychloroquine Fact Sheet MISC ONE (11:00)
[2019-06-12 12:00] VITALS: BP 145/68
--- NOTE | 2019-06-12 12:05 | NUR ---
NURSE NOTES: Patient asleep with no apparent distress. Remains on close monitoring, to be started on PLAQU[place]. Isolation precaution in place and good handwashing done.Turned and repositioned. Keep HOB elevated at 35 degree to prevent aspiration and bilateral upper and lower extremities elevated to relieve edema. No change in condition at this time, will continue to monitor
--- NOTE | 2019-06-12 12:44 | NUR ---
NURSE NOTES: Call Dr Ramirez regarding potassium new order x1 Potassium 20meq GT. Order noted and carried out
[2019-06-12] MEDS: Piperacillin/Tazobactam 3.375 GM in NS 110 ML IVPB SCH (13:52)
--- NOTE | 2019-06-12 14:09 | NUR ---
NURSE NOTES: Pt asleep,easily arousal to tactile and verbal stimuli.Update given to daughter. Pt hemodynamically stable at this time.No acute distress, turned and repositioned for skin management. Will continue close monitoring.
--- NOTE | 2019-06-12 14:56 | NUR ---
CASE MANAGEMENT: REVIEW 78 YEAR OLD MALE BIBA FROM [facility] CC: ABNORMAL LABS SI: VENT DEPENDANT . PULMONARY EDEMA . ANASARCA T 97.9 HR 61 RR 16 BP 155/86 SAT 99% MECH VENT FIO2 40 WBC 24.4 H/H 8.9/30.2 NA 134 BUN 97 CR 1.9 AST 79 ALT 108 CXR -- BILATERAL PLEURAL EFFUSIONS IS: LASIX 40MG X1 LASIX 20MG IV X1 K-DUR GT X1 PATIENT ADMITTED TO STEP DOWN UNIT 06/10/2019 DCP: PATIENT IS FROM [facility]
[2019-06-12 16:00] VITALS: BP 129/62
--- NOTE | 2019-06-12 16:04 | NUR ---
NURSE NOTES: Pt turned and repositioned, mouth care done.HOB elevated to prevent aspiration.Tolerated well feeding.Wound care done and dressing changed. No significant change in condition at this time.Will continue to monitor.
--- NOTE | 2019-06-12 16:16 | Nephrology Progress Note ---
Assessment/Plan Problem List: (1) Hypokalemia (2) CKD (chronic kidney disease) stage 5, GFR less than 15 ml/min (3) Anasarca (4) Pulmonary edema (5) Chronic respiratory failure (6) Uremia Plan continue iv lasix, kcl Subjective ROS Limited/Unobtainable: Yes Objective Objective Last 24 Hour Vital Signs Date Time Temp Pulse Resp B/P (MAP) Pulse Ox O2 Delivery O2 Flow Rate FiO2 06/12/19 15:20 61 22 35 06/12/19 12:00 Mechanical Ventilator 06/12/19 12:00 35 06/12/19 12:00 97.6 62 18 145/68 (93) 100 06/12/19 10:50 59 19 35 06/12/19 09:07 69 150/67 06/12/19 08:00 Mechanical Ventilator 06/12/19 08:00 35 06/12/19 08:00 97.7 69 18 150/67 (94) 98 06/12/19 07:20 64 20 35 06/12/19 05:06 60 19 35 06/12/19 04:00 35 06/12/19 04:00 Mechanical Ventilator 06/12/19 04:00 97.7 61 16 142/64 (90) 100 06/12/19 03:30 62 06/12/19 03:05 62 20 35 06/12/19 01:17 61 18 35 06/12/19 00:03 Mechanical Ventilator 06/12/19 00:00 61 06/12/19 00:00 98.6 61 16 145/71 (95) 100 06/11/19 23:30 61 19 35 06/11/19 21:19 60 17 35 06/11/19 20:33 146 73/69 06/11/19 20:00 35 06/11/19 20:00 Mechanical Ventilator 06/11/19 20:00 98.2 72 16 146/73 (97) 100 06/11/19 19:26 69 19 35 06/11/19 19:21 70 06/11/19 16:56 67 20 35 Intake and Output 06/11/19 06/12/19 19:00 07:00 Intake Total 1025.000 ml 650.0 ml Output Total 1500 ml 1750 ml Balance -475.000 ml -1100.0 ml Intake Free Water 100 ml IV Total 385.000 ml 110.0 ml Tube Feeding 540 ml 540 ml Output Urine Total 1500 ml 1750 ml Laboratory Tests 06/12/19 04:30: White Blood Count 23.6*H, Red Blood Count 3.29L, Hemoglobin 8.9L, Hematocrit 28.6L, Mean Corpuscular Volume 87, Mean Corpuscular Hemoglobin 27.2, Mean Corpuscular Hemoglobin Concent 31.3L, Red Cell Distribution Width 18.4H, Platelet Count 428, Mean Platelet Volume 5.9L, Neutrophils (%) (Auto) , Lymphocytes (%) (Auto) , Monocytes (%) (Auto) , Eosinophils (%) (Auto) , Basophils (%) (Auto) , Differential Total Cells Counted 100, Neutrophils % ( Manual) 84H, Lymphocytes % (Manual) 8L, Monocytes % (Manual) 7, Eosinophils % ( Manual) 1, Basophils % (Manual) 0, Band Neutrophils 0, Platelet Estimate Adequate, Platelet Morphology Normal, Hypochromasia 3+, Anisocytosis 2+, Sodium Level 140, Potassium Level 3.2L, Chloride Level 106, Carbon Dioxide Level 24, Anion Gap 10, Blood Urea Nitrogen 103H, Creatinine 2.1H, Estimat Glomerular Filtration Rate 37.3, Glucose Level 158H, Calcium Level 9.7 Height (Feet): 5 Height (Inches): 4.00 Weight (Pounds): 150 General Appearance: lethargic, other - on vent Cardiovascular: normal rate, regular rhythm Respiratory/Chest: rhonchi - bilaterally Abdomen: soft Extremities: moderate edema Neurologic: disoriented Carmelo Frank MD June 12, 2019 16:16
--- NOTE | 2019-06-12 18:00 | NUR ---
NURSE NOTES: INSULIN HELD, BS 132
--- NOTE | 2019-06-12 18:30 | NUR ---
NURSE NOTES:WOUND CARE NOTES:Pt presented on admission with generalized edema,grossly enlarged scrotum, contractures and multiple pressure injuries. Full thickness pressure injury L Sacrum (L)1.6cm x (W)1.8cm x (D)0.3cm. Base of wound has 40% slough,60% beefy red. Borders are macerated. Small amt sanguineus exudate noted. Wound noted to be within field of previous wound. Periwound, skin tone is darker without induration or fluctuance. Scattered areas of hyperpigmentation from previous wounds noted to R and L Buttocks. Grossly enlarged and erythematous scrotum . Clusters of linear partial thickness ulcers noted at base of scrotum.moderate amt of serous exudate noted .Shaft of penis is grossly edematous. DTPI noted to medial L heel. Base of wound is maroon and fluctuant. (L)4cm x (W)4.5cm. R heel is boggy with non-blanching erythema. Tx.Plan: Cleanse Sacral wound with Saline. Apply TheraHoney.Apply Moisture Barrier Paste periwound. Cover with Optifoam drsg. Change every 3 days and prn. Apply Moisture Barrier Paste to Bilat groin and scrotum with each Incontinence care. Cover each trochanter/Hips areas with Optifoam drsgs. Change every 7 days and prn. Apply Cavilon Skin Barrier to both heels. Cover each heel with Optifoam drsg. Change every 7 days and prn. Reposition at least every 2hours or as tolerated. Off-load heels with Pillow. APM/BECCA Mattress overlay.
--- NOTE | 2019-06-12 18:36 | NUR ---
NURSE NOTES: Adls done turned and repositioned.HOB elevated to prevent aspiration.Will continue same care plan.No significant change at this time
--- NOTE | 2019-06-12 19:15 | NUR ---
HAND-OFF: Report given to TAMICA Leon.
--- NOTE | 2019-06-12 19:15 | NUR ---
NURSE NOTES: Received patient and report from TAMICA Hughes. Patient is observed resting in bed and remains obtunded at this time. No pain noted upon assessment. Pt is currently trach to vent settings: AC 16 TV 450 FiO2 35 PEEP 5 with an O2 sat of 100% noted and no s/sx of distress noted. Pt noted to be VPaced on tele monitor with no s/sx of distress noted. Avalos catheter noted. R AC 20g IV catheter noted to be asymptomatic, intact and patent. Diagnostics reviewed.Skin alterations noted. Fall, Aspiration and Skin precautions observed. Pt remains resting in bed; Bed remains in the lowest position with the safety wheels engaged, call light within reach, side rails up x3 and bed alarm activated. Will continue plan of care. Will continue to monitor. Will contact Cariology and Pulmo for additional orders.
[2019-06-12 20:00] VITALS: BP 108/51
--- NOTE | 2019-06-12 20:00 | NUR ---
NURSE NOTES: Received report from TAMICA Leon. Patient is observed resting in bed and remains obtunded. No pain noted upon assessment. Pt is currently trach to vent settings: AC 16 TV 450 FiO2 35 PEEP 5 with an O2 sat of 100% noted and no s/sx of distress noted. Pt noted to be V-Paced on tele monitor with no s/sx of distress noted. Avalos catheter noted. R AC 20g IV catheter noted to be asymptomatic, intact and patent. Fall, Aspiration and Skin precautions observed. Bed remains in the lowest position with the safety wheels engaged, call light within reach, side rails up x3 and bed alarm activated. Will continue plan of care. Will continue to monitor.
--- NOTE | 2019-06-12 20:17 | NUR ---
HAND-OFF: Report given to TAMICA Hernandes.
[2019-06-12] MEDS: Epoetin Alfa-EPBX (NON ESRD)10,000 unit/ml vial SUBQ SCH (21:09)
[2019-06-12] MEDS: Atorvastatin 20mg tab GT SCH (21:10)
[2019-06-13] VITALS: BP 137/57
[2019-06-13] MEDS: Piperacillin/Tazobactam 3.375 GM in NS 110 ML IVPB SCH ×3 (01:00→23:51)
[2019-06-13 04:00] VITALS: BP 149/58
[2019-06-13] MEDS: NovoLOG Insulin Flexpen SUBQ SCH ×5 (05:17→23:53)
[2019-06-13 06:52] LABS: HEMATOCRIT 27.3 % (42.0-52.0); HEMOGLOBIN 8.4 G/DL (14.2-18.0); MEAN CORPUSCULAR VOLUME 87 FL (80-99); PLATELET COUNT 415 K/UL (150-450); RED BLOOD COUNT 3.13 M/UL (4.70-6.10); RED CELL DISTRIBUTION WIDTH 18.5 % (11.6-14.8); WHITE BLOOD COUNT 19.9 K/UL (4.8-10.8)
[2019-06-13 07:14] LABS: ANION GAP 12 mmol/L (5-15); BLOOD UREA NITROGEN 114 mg/dL (7-18); CALCIUM 9.3 MG/DL (8.5-10.1); CARBON DIOXIDE 24 MMOL/L (21-32); CHLORIDE 107 MMOL/L (98-107); CREATININE 2.3 MG/DL (0.55-1.30); POTASSIUM 3.5 MMOL/L (3.5-5.1); SODIUM 143 MMOL/L (136-145)
--- NOTE | 2019-06-13 07:17 | NUR ---
HAND-OFF: Report given to TAMICA Espino. No adverse events overnight. Patient stable at hand-off.
--- NOTE | 2019-06-13 07:30 | NUR ---
NURSE NOTES: Received report from TAMICA Hernandes. Patient is resting in bed, in stable condition. No s/sx of SOB, breathing is even and unlabored. Bed is in lowest position, brakes engaged. Patient is sleeping, nonverbal, observed no presence of pain or discomfort at this time. Call light is kept within easy reach. Will continue to monitor patient.
[2019-06-13 08:00] VITALS: BP_SYST 139; BP_SYST 144; BP_DIAS 65; BP_DIAS 68
--- NOTE | 2019-06-13 08:53 | Pulmonology Progress Note ---
Assessment/Plan Assessment/Plan Anasarca Pulmonary edema scrotal edema Uremia Chronic respiratory failure on Ventilator Hypertension Diabetes Previous pneumonia Subdural hematoma Bedbound Tracheostomy dependent leukocytosis possible sepsis severe PCM anemia PLAN vent support as is renal and ID appreciated antibiotics reviewed cultures noted vent support monitor urine output feeds protein follow up closely remains ill impression, plan, and exam edited and reviewed in detail care discussed with RN Subjective ROS Limited/Unobtainable: Yes Allergies: Coded Allergies: No Known Allergies (Unverified , 06/10/19) Subjective reviewed care consultants noted still edematous Objective Last 24 Hour Vital Signs Date Time Temp Pulse Resp B/P (MAP) Pulse Ox O2 Delivery O2 Flow Rate FiO2 06/13/19 08:00 Mechanical Ventilator 06/13/19 08:00 35 06/13/19 08:00 97.7 70 20 144/68 (93) 70 06/13/19 05:24 74 20 35 06/13/19 04:00 97.9 69 20 149/58 (88) 69 06/13/19 04:00 62 06/13/19 04:00 Mechanical Ventilator 06/13/19 04:00 35 06/13/19 03:13 72 20 35 06/13/19 01:29 71 21 35 06/13/19 00:00 97.7 69 18 137/57 (83) 69 06/13/19 00:00 60 06/13/19 00:00 Mechanical Ventilator 06/13/19 00:00 35 06/12/19 23:23 69 20 35 06/12/19 21:24 67 20 35 06/12/19 21:00 58 108/51 06/12/19 20:00 35 06/12/19 20:00 99.1 51 16 108/51 (70) 67 06/12/19 20:00 Mechanical Ventilator 06/12/19 20:00 61 06/12/19 19:14 64 21 35 06/12/19 16:00 88 06/12/19 16:00 98.6 67 18 129/62 (84) 100 06/12/19 16:00 Mechanical Ventilator 06/12/19 16:00 35 06/12/19 15:20 61 22 35 06/12/19 12:00 Mechanical Ventilator 06/12/19 12:00 66 06/12/19 12:00 35 06/12/19 12:00 97.6 62 18 145/68 (93) 100 06/12/19 10:50 59 19 35 06/12/19 09:07 69 150/67 Intake and Output 06/12/19 06/13/19 19:00 07:00 Intake Total 675 ml 805.0 ml Output Total 3600 ml Balance -2925 ml 805.0 ml Intake Free Water 90 ml 200 ml IV Total 110.0 ml Tube Feeding 585 ml 495 ml Output Urine Total 3600 ml Objective WDWN NAD trach and gt clear breath sounds bilaterally without rhonchi or wheeze [id number] without MRG NABS nontender no HSM no CC noted edema scrotal edema nonfocal anasarca HEENT: status post trach Microbiology Date/Time Source Procedure Growth Status 06/10/19 15:07 Blood Blood Culture - Preliminary NO GROWTH AFTER 48 HOURS Resulted 06/10/19 14:45 Blood Blood Culture - Final Staphylococcus Sp Coag Neg Complete 06/11/19 13:00 Nasopharynx Coronavirus COVID-19 PCR ([facility]) - Final Complete 06/11/19 11:15 Sputum Induced Gram Stain - Final Resulted 06/11/19 11:15 Sputum Culture - Preliminary Streptococcus Group G Gram Negative Bacillus 1 Gram Negative Bacillus 2 Gram Negative Bacillus 3 Resulted 06/10/19 15:07 Nasal Nares MRSA Culture - Final NO METHICILLIN RESISTANT STAPH AUREUS... Complete 06/11/19 11:15 Indwelling Cath Urine Culture - Preliminary Resulted 06/10/19 15:07 Urine,Clean Catch Urine Culture - Preliminary YEAST Resulted 06/10/19 15:07 Rectum VRE Culture - Final Enterococcus Faecalis - Vre Complete Laboratory Tests 06/13/19 03:50: White Blood Count 19.9H, Red Blood Count 3.13L, Hemoglobin 8.4L, Hematocrit 27.3L, Mean Corpuscular Volume 87, Mean Corpuscular Hemoglobin 26.9L, Mean Corpuscular Hemoglobin Concent 31.0L, Red Cell Distribution Width 18.5H, Platelet Count 415, Mean Platelet Volume 5.9L, Neutrophils (%) (Auto) , Lymphocytes (%) (Auto) , Monocytes (%) (Auto) , Eosinophils (%) (Auto) , Basophils (%) (Auto) , Neutrophils % (Manual) [Pending], Lymphocytes % (Manual) [Pending], Platelet Estimate [Pending], Platelet Morphology [Pending], Sodium Level 143, Potassium Level 3.5, Chloride Level 107, Carbon Dioxide Level 24, Anion Gap 12, Blood Urea Nitrogen 114H, Creatinine 2.3H, Estimat Glomerular Filtration Rate 33.6, Glucose Level 173H, Calcium Level 9.3 Current Medications Medications (Trade) Dose Ordered Sig/Leonel Route PRN Reason Start Time Stop Time Status Last Admin Dose Admin Acetaminophen (Tylenol) 650 mg Q4H PRN NG Temp >100.5 06/10/19 21:00 07/10/19 20:59 Ascorbic Acid (Vitamin C) 500 mg DAILY GT 06/11/19 09:00 07/11/19 08:59 06/12/19 09:06 Atorvastatin Calcium (Lipitor) 40 mg BEDTIME GT 06/10/19 21:00 09/08/19 20:59 06/12/19 21:10 Dextrose (Dextrose 50%) 25 ml Q30M PRN IV Hypoglycemia 06/10/19 21:00 09/08/19 20:59 Dextrose (Dextrose 50%) 50 ml Q30M PRN IV Hypoglycemia 06/10/19 21:00 09/08/19 20:59 Epoetin Andreas (Epoetin Andreas-EPBX(NON ESRD)) 10,000 unit WED-WED-WED SUBQ 06/12/19 21:00 09/10/19 20:59 06/12/19 21:09 Ferrous Sulfate (Feosol) 330 mg THREE TIMES A DAY NG 06/11/19 09:00 09/09/19 08:59 06/12/19 17:45 Furosemide (Lasix) 80 mg EVERY 12 HOURS IV 06/12/19 21:00 07/11/19 20:59 06/12/19 21:09 Heparin Sodium (Porcine) (Heparin 5000 units/ml) 5,000 units EVERY 12 HOURS SUBQ 06/10/19 21:00 07/25/19 20:59 06/12/19 21:13 Insulin Aspart (NovoLOG) Q6HR SUBQ 06/11/19 12:00 09/08/19 21:59 06/13/19 05:17 Metoprolol Tartrate (Lopressor) 100 mg Q12HR GT 06/10/19 09:00 09/08/19 08:59 06/12/19 09:07 Multivitamins (Multivitamins W/ Minerals 15ml Liquid) 15 ml DAILY GT 06/11/19 09:00 07/11/19 08:59 06/12/19 09:04 Pantoprazole (Protonix) 40 mg DAILY IVP 06/11/19 09:00 07/11/19 08:59 06/12/19 09:06 Piperacillin Sod/ Tazobactam Sod 3.375 gm/Sodium Chloride 110 ml @ 27.5 mls/hr Q12H IVPB 06/11/19 12:00 06/18/19 11:59 06/13/19 01:00 Potassium Chloride (K-Dur) 20 meq TWICE A DAY GT 06/11/19 09:00 09/09/19 08:59 06/12/19 17:48 Vitamin B Complex/ Vit C/Folic Acid (Nephrovite) 1 tab DAILY GT 06/11/19 09:00 07/11/19 08:59 06/12/19 09:07 Kain Ramirez MD June 13, 2019 08:53
[2019-06-13] MEDS: Nephrovite tab (Rena-Vite) GT SCH (08:55)
[2019-06-13] MEDS: Metoprolol Tartrate 100mg tab GT SCH ×2 (08:55→20:49)
[2019-06-13] MEDS: Ferrous Sulfate 300 MG/5 ML UDC NG SCH ×3 (08:55→17:36)
[2019-06-13] MEDS: Ascorbic Acid 500mg tab GT SCH (08:55)
[2019-06-13] MEDS: Pantoprazole Inj IVP SCH (08:56)
[2019-06-13] MEDS: Multivitamins W/Minerals 15 ML UDC GT SCH (08:56)
[2019-06-13] MEDS: Heparin 5000 units/ml inj SUBQ SCH ×2 (08:57→20:54)
--- NOTE | 2019-06-13 10:24 | NUR ---
NURSE NOTES: Dr. Lyle at nurse station, made aware that COVID-19 swab is negative. Per night nurse also informed me that patient received COVID[facility] swab at [facility] which was also negative, relayed this information to Dr. Lyle. Dr. Lyle acknowledged and ordered to discontinue COVID-19 isolation and no COVID-19 reswab needed. Order entered, noted, and carried out. Charge nurse made aware. Will continue to monitor patient.
--- NOTE | 2019-06-13 10:31 | Infectious Diseases Prog Note ---
Assessment/Plan Assessment/Plan antibiotics : zosyn, hydrochloroquine A 1. pneumonia with streptococcus, gram negatives COVID 19 test negative 2. respiratory failure 3. leucocytosis improving 4. diabetes mellitus 5. hypertension 6. renal failure 7. SDH 8. + blood cultures with coag neg staph likely contaminated 9. QT prolongation P 1. continue zosyn 2. d/c hydroxychloroquine 3. continue isolation Subjective ROS Limited/Unobtainable: Yes Allergies: Coded Allergies: No Known Allergies (Unverified , 06/10/19) Objective Vital Signs Last 24 Hour Vital Signs Date Time Temp Pulse Resp B/P (MAP) Pulse Ox O2 Delivery O2 Flow Rate FiO2 06/13/19 08:55 70 144/68 06/13/19 08:00 Mechanical Ventilator 06/13/19 08:00 35 06/13/19 08:00 97.7 70 20 144/68 (93) 70 06/13/19 07:14 68 18 35 06/13/19 05:24 74 20 35 06/13/19 04:00 97.9 69 20 149/58 (88) 69 06/13/19 04:00 62 06/13/19 04:00 Mechanical Ventilator 06/13/19 04:00 35 06/13/19 03:13 72 20 35 06/13/19 01:29 71 21 35 06/13/19 00:00 97.7 69 18 137/57 (83) 69 06/13/19 00:00 60 06/13/19 00:00 Mechanical Ventilator 06/13/19 00:00 35 06/12/19 23:23 69 20 35 06/12/19 21:24 67 20 35 06/12/19 21:00 58 108/51 06/12/19 20:00 35 06/12/19 20:00 99.1 51 16 108/51 (70) 67 06/12/19 20:00 Mechanical Ventilator 06/12/19 20:00 61 06/12/19 19:14 64 21 35 06/12/19 16:00 88 06/12/19 16:00 98.6 67 18 129/62 (84) 100 06/12/19 16:00 Mechanical Ventilator 06/12/19 16:00 35 06/12/19 15:20 61 22 35 06/12/19 12:00 Mechanical Ventilator 06/12/19 12:00 66 06/12/19 12:00 35 06/12/19 12:00 97.6 62 18 145/68 (93) 100 06/12/19 10:50 59 19 35 Height (Feet): 5 Height (Inches): 4.00 Weight (Pounds): 150 HEENT: status post trach Microbiology Date/Time Source Procedure Growth Status 06/10/19 15:07 Blood Blood Culture - Preliminary NO GROWTH AFTER 48 HOURS Resulted 06/10/19 14:45 Blood Blood Culture - Final Staphylococcus Sp Coag Neg Complete 06/11/19 13:00 Nasopharynx Coronavirus COVID-19 PCR ([facility]) - Final Complete 06/11/19 11:15 Sputum Induced Gram Stain - Final Resulted 06/11/19 11:15 Sputum Culture - Preliminary Streptococcus Group G Gram Negative Bacillus 1 Gram Negative Bacillus 2 Gram Negative Bacillus 3 Resulted 06/10/19 15:07 Nasal Nares MRSA Culture - Final NO METHICILLIN RESISTANT STAPH AUREUS... Complete 06/11/19 11:15 Indwelling Cath Urine Culture - Preliminary Resulted 06/10/19 15:07 Urine,Clean Catch Urine Culture - Preliminary YEAST Resulted 06/10/19 15:07 Rectum - Final NO CARBAPENEM-RESISTANT ENTEROBACTERI... Complete 06/10/19 15:07 Rectum VRE Culture - Final Enterococcus Faecalis - Vre Complete Laboratory Tests Test 06/13/19 03:50 White Blood Count 19.9 K/UL (4.8-10.8) H Red Blood Count 3.13 M/UL (4.70-6.10) L Hemoglobin 8.4 G/DL (14.2-18.0) L Hematocrit 27.3 % (42.0-52.0) L Mean Corpuscular Volume 87 FL (80-99) Mean Corpuscular Hemoglobin 26.9 PG (27.0-31.0) L Mean Corpuscular Hemoglobin Concent 31.0 G/DL (32.0-36.0) L Red Cell Distribution Width 18.5 % (11.6-14.8) H Platelet Count 415 K/UL (150-450) Mean Platelet Volume 5.9 FL (6.5-10.1) L Neutrophils (%) (Auto) % (45.0-75.0) Lymphocytes (%) (Auto) % (20.0-45.0) Monocytes (%) (Auto) % (1.0-10.0) Eosinophils (%) (Auto) % (0.0-3.0) Basophils (%) (Auto) % (0.0-2.0) Differential Total Cells Counted 100 Neutrophils % (Manual) 80 % (45-75) H Lymphocytes % (Manual) 5 % (20-45) L Monocytes % (Manual) 6 % (1-10) Eosinophils % (Manual) 9 % (0-3) H Basophils % (Manual) 0 % (0-2) Band Neutrophils 0 % (0-8) Platelet Estimate Adequate Platelet Morphology Normal Hypochromasia 2+ Anisocytosis 2+ Sodium Level 143 MMOL/L (136-145) Potassium Level 3.5 MMOL/L (3.5-5.1) Chloride Level 107 MMOL/L (98-107) Carbon Dioxide Level 24 MMOL/L (21-32) Anion Gap 12 mmol/L (5-15) Blood Urea Nitrogen 114 mg/dL (7-18) H Creatinine 2.3 MG/DL (0.55-1.30) H Estimat Glomerular Filtration Rate 33.6 mL/min (>60) Glucose Level 173 MG/DL (74-106) H Calcium Level 9.3 MG/DL (8.5-10.1) Current Medications Medications (Trade) Dose Ordered Sig/Leonel Route PRN Reason Start Time Stop Time Status Last Admin Dose Admin Acetaminophen (Tylenol) 650 mg Q4H PRN NG Temp >100.5 06/10/19 21:00 07/10/19 20:59 Ascorbic Acid (Vitamin C) 500 mg DAILY GT 06/11/19 09:00 07/11/19 08:59 06/13/19 08:55 Atorvastatin Calcium (Lipitor) 40 mg BEDTIME GT 06/10/19 21:00 09/08/19 20:59 06/12/19 21:10 Dextrose (Dextrose 50%) 25 ml Q30M PRN IV Hypoglycemia 06/10/19 21:00 09/08/19 20:59 Dextrose (Dextrose 50%) 50 ml Q30M PRN IV Hypoglycemia 06/10/19 21:00 09/08/19 20:59 Epoetin Andreas (Epoetin Andreas-EPBX(NON ESRD)) 10,000 unit SUBQ 06/12/19 21:00 09/10/19 20:59 06/12/19 21:09 Ferrous Sulfate (Feosol) 330 mg THREE TIMES A DAY NG 06/11/19 09:00 09/09/19 08:59 06/13/19 08:55 Furosemide (Lasix) 80 mg EVERY 12 HOURS IV 06/12/19 21:00 07/11/19 20:59 06/13/19 08:56 Heparin Sodium (Porcine) (Heparin 5000 units/ml) 5,000 units EVERY 12 HOURS SUBQ 06/10/19 21:00 07/25/19 20:59 06/13/19 08:57 Insulin Aspart (NovoLOG) Q6HR SUBQ 06/11/19 12:00 09/08/19 21:59 06/13/19 05:17 Metoprolol Tartrate (Lopressor) 100 mg Q12HR GT 06/10/19 09:00 09/08/19 08:59 06/13/19 08:55 Multivitamins (Multivitamins W/ Minerals 15ml Liquid) 15 ml DAILY GT 06/11/19 09:00 07/11/19 08:59 06/13/19 08:56 Pantoprazole (Protonix) 40 mg DAILY IVP 06/11/19 09:00 07/11/19 08:59 06/13/19 08:56 Piperacillin Sod/ Tazobactam Sod 3.375 gm/Sodium Chloride 110 ml @ 27.5 mls/hr Q12H IVPB 06/11/19 12:00 06/18/19 11:59 06/13/19 01:00 Potassium Chloride (K-Dur) 20 meq TWICE A DAY GT 06/11/19 09:00 09/09/19 08:59 06/13/19 08:55 Vitamin B Complex/ Vit C/Folic Acid (Nephrovite) 1 tab DAILY GT 06/11/19 09:00 07/11/19 08:59 06/13/19 08:55 Farnaz Lyle MD June 13, 2019 10:31
--- NOTE | 2019-06-13 10:37 | NUR ---
CASE MANAGEMENT: REVIEW SI: VENT DEPENDANT . PULMONARY EDEMA . ANASARCA T 97.9 HR 69 RR 20 BP 149/58 SAT 69% MECH VENT FIO2 35 WBC 19.9 H/H 8.4/27.3 BUN 114 CR 2.3 IS: ZOSYN IV Q12HR LASIX 80MG IV Q12HR PROTONIX 40MG IV QD NOVOLOG SUBQ STEP DOWN UNIT STATUS DCP: PATIENT IS FROM [facility]
--- NOTE | 2019-06-13 11:47 | NUR ---
*-* INSURANCE *-* ALL AVAILABLE CLINICALS HAVE BEEN FAXED TO: [facility] tracking# [id number] ; Jessy ph# [phone] ext [phone] fax# [phone]
--- NOTE | 2019-06-13 11:56 | Nephrology Progress Note ---
Assessment/Plan Problem List: (1) Hypokalemia (2) CKD (chronic kidney disease) stage 5, GFR less than 15 ml/min (3) Anasarca (4) Pulmonary edema (5) Chronic respiratory failure (6) Uremia Plan continue iv lasix, kcl gfr 7, avoid nephrotoxins Subjective ROS Limited/Unobtainable: Yes Objective Objective Last 24 Hour Vital Signs Date Time Temp Pulse Resp B/P (MAP) Pulse Ox O2 Delivery O2 Flow Rate FiO2 06/13/19 11:30 61 19 35 06/13/19 09:23 60 20 35 06/13/19 08:55 70 144/68 06/13/19 08:00 67 06/13/19 08:00 Mechanical Ventilator 06/13/19 08:00 35 06/13/19 08:00 97.7 70 20 144/68 (93) 70 06/13/19 07:14 68 18 35 06/13/19 05:24 74 20 35 06/13/19 04:00 97.9 69 20 149/58 (88) 69 06/13/19 04:00 62 06/13/19 04:00 Mechanical Ventilator 06/13/19 04:00 35 06/13/19 03:13 72 20 35 06/13/19 01:29 71 21 35 06/13/19 00:00 97.7 69 18 137/57 (83) 69 06/13/19 00:00 60 06/13/19 00:00 Mechanical Ventilator 06/13/19 00:00 35 06/12/19 23:23 69 20 35 06/12/19 21:24 67 20 35 06/12/19 21:00 58 108/51 06/12/19 20:00 35 06/12/19 20:00 99.1 51 16 108/51 (70) 67 06/12/19 20:00 Mechanical Ventilator 06/12/19 20:00 61 06/12/19 19:14 64 21 35 06/12/19 16:00 88 06/12/19 16:00 98.6 67 18 129/62 (84) 100 06/12/19 16:00 Mechanical Ventilator 06/12/19 16:00 35 06/12/19 15:20 61 22 35 06/12/19 12:00 Mechanical Ventilator 06/12/19 12:00 66 06/12/19 12:00 35 06/12/19 12:00 97.6 62 18 145/68 (93) 100 Intake and Output 06/12/19 06/13/19 19:00 07:00 Intake Total 675 ml 805.0 ml Output Total 3600 ml Balance -2925 ml 805.0 ml Intake Free Water 90 ml 200 ml IV Total 110.0 ml Tube Feeding 585 ml 495 ml Output Urine Total 3600 ml Laboratory Tests 06/13/19 03:50: White Blood Count 19.9H, Red Blood Count 3.13L, Hemoglobin 8.4L, Hematocrit 27.3L, Mean Corpuscular Volume 87, Mean Corpuscular Hemoglobin 26.9L, Mean Corpuscular Hemoglobin Concent 31.0L, Red Cell Distribution Width 18.5H, Platelet Count 415, Mean Platelet Volume 5.9L, Neutrophils (%) (Auto) , Lymphocytes (%) (Auto) , Monocytes (%) (Auto) , Eosinophils (%) (Auto) , Basophils (%) (Auto) , Differential Total Cells Counted 100, Neutrophils % ( Manual) 80H, Lymphocytes % (Manual) 5L, Monocytes % (Manual) 6, Eosinophils % ( Manual) 9H, Basophils % (Manual) 0, Band Neutrophils 0, Platelet Estimate Adequate, Platelet Morphology Normal, Hypochromasia 2+, Anisocytosis 2+, Sodium Level 143, Potassium Level 3.5, Chloride Level 107, Carbon Dioxide Level 24, Anion Gap 12, Blood Urea Nitrogen 114H, Creatinine 2.3H, Estimat Glomerular Filtration Rate 33.6, Glucose Level 173H, Calcium Level 9.3 Height (Feet): 5 Height (Inches): 4.00 Weight (Pounds): 150 General Appearance: no apparent distress, lethargic Cardiovascular: regular rhythm Respiratory/Chest: rhonchi - bilaterally Abdomen: non tender Extremities: moderate edema Neurologic: disoriented, unresponsive Carmelo Frank MD June 13, 2019 11:56
[2019-06-13 12:00] VITALS: BP 137/64
--- NOTE | 2019-06-13 14:20 | Diagnostic Imaging Report ---
Indication: Abnormal renal function tests, history of chronic kidney disease Technique: Grayscale and duplex images of the kidneys, retroperitoneum, and bladder were obtained. Comparison: none Findings: Right kidney measures 9.5 cm in length. Left kidney measures 9.7 cm in length. Both kidneys demonstrate normal echogenicity. No hydronephrosis. No focal abnormality. Normal inferior vena cava. Bladder is empty, contains a Avalos catheter. A left pleural effusion is incidentally noted Impression: negative.
[2019-06-13 16:00] VITALS: BP 123/68
--- NOTE | 2019-06-13 16:07 | Consultation ---
History of Present Illness General Date patient seen: June 13, 2019 Chief Complaint: Abnormal Labs Present Illness HPI This is a 78-year-old male multiple medical comorbidities including history of pneumonia, subdural hematoma, bedbound, tracheostomy on support dependent whoe presented from facility for evaluation of abnormal laboratory studies. Apparently patient had outpatient laboratory studies yesterday showing elevated BUN and creatinine. Patient was also noted to be edematous diffusely. There was no reported fever. History is otherwise limited due to patient's baseline mental status. unable to provide history. noted to have malnutrition and decubitus ulcers on admission. surgery called to evaluate and assist with care. Allergies: Coded Allergies: No Known Allergies (Unverified , 06/10/19) Medication History Scheduled Ascorbic Acid* (Ascorbic Acid*), 500 MG ORAL DAILY, (Reported) Epoetin Andreas (Epogen), 10,000 UNIT SUBQ 3XW, (Reported) Ferrous Sulfate* (Ferrous Sulfate*), 325 MG ORAL DAILY, (Reported) Hydralazine Hcl* (Hydralazine Hcl*), 100 MG ORAL EVERY 8 HOURS, (Reported) Losartan Potassium* (Losartan Potassium*), 100 MG ORAL DAILY, (Reported) Metoprolol Tartrate* (Metoprolol Tartrate*), 100 MG ORAL EVERY 12 HOURS, ( Reported) Multivitamin With Minerals (Multivitamins With Minerals*), 1 TAB ORAL DAILY, ( Reported) Pantoprazole* (Protonix*), 40 MG ORAL DAILY, (Reported) Vitamin B Cmplx/Vit C/Folic AC (Nephro-Eileen Tablet), 1 TAB ORAL DAILY, (Reported ) Miscellaneous Medications Insulin Lispro (Humalog), 0 SUBQ, (Reported) Lactobacillus Acidophilus (Probiotic), 1 EACH PO, (Reported) Potassium Chloride (Potassium Chloride), 20 MEQ PO, (Reported) Patient History Limited by: medical condition History Provided By: Medical Record, PMD Healthcare decision maker Resuscitation status Advanced Directive on File Past Medical/Surgical History Past Medical/Surgical History: (1) Chronic respiratory failure (2) Pulmonary edema (3) Hypokalemia (4) Anasarca (5) Uremia (6) CKD (chronic kidney disease) stage 5, GFR less than 15 ml/min Review of Systems ROS Narrative cannot obtain given patients medical condition Physical Exam General Appearance: no apparent distress Lines, tubes and drains: peripheral HEENT: mucous membranes moist Neck: normal inspection, trach Respiratory/Chest: no respiratory distress, no accessory muscle use, decreased breath sounds, on vent Breasts: no masses Cardiovascular/Chest: regularly irregular Abdomen: soft, no organomegaly, feeding tube Genitourinary/Rectal: heme negative stool Extremities: inflammation, slow capillary refill, trace edema Neurologic: unresponsiveness Last 24 Hour Vital Signs Date Time Temp Pulse Resp B/P (MAP) Pulse Ox O2 Delivery O2 Flow Rate FiO2 06/13/19 12:00 Mechanical Ventilator 06/13/19 12:00 35 06/13/19 12:00 98.1 61 20 137/64 (88) 61 06/13/19 12:00 60 06/13/19 11:30 61 19 35 06/13/19 09:23 60 20 35 06/13/19 08:55 70 144/68 06/13/19 08:00 67 06/13/19 08:00 Mechanical Ventilator 06/13/19 08:00 35 06/13/19 08:00 97.7 70 20 144/68 (93) 70 06/13/19 07:14 68 18 35 06/13/19 05:24 74 20 35 06/13/19 04:00 97.9 69 20 149/58 (88) 69 06/13/19 04:00 62 06/13/19 04:00 Mechanical Ventilator 06/13/19 04:00 35 06/13/19 03:13 72 20 35 06/13/19 01:29 71 21 35 06/13/19 00:00 97.7 69 18 137/57 (83) 69 06/13/19 00:00 60 06/13/19 00:00 Mechanical Ventilator 06/13/19 00:00 35 06/12/19 23:23 69 20 35 06/12/19 21:24 67 20 35 06/12/19 21:00 58 108/51 06/12/19 20:00 35 06/12/19 20:00 99.1 51 16 108/51 (70) 67 06/12/19 20:00 Mechanical Ventilator 06/12/19 20:00 61 06/12/19 19:14 64 21 35 Intake and Output 06/12/19 06/13/19 19:00 07:00 Intake Total 675 ml 805.0 ml Output Total 3600 ml Balance -2925 ml 805.0 ml Intake Free Water 90 ml 200 ml IV Total 110.0 ml Tube Feeding 585 ml 495 ml Output Urine Total 3600 ml Laboratory Tests Test 06/13/19 03:50 White Blood Count 19.9 K/UL (4.8-10.8) H Red Blood Count 3.13 M/UL (4.70-6.10) L Hemoglobin 8.4 G/DL (14.2-18.0) L Hematocrit 27.3 % (42.0-52.0) L Mean Corpuscular Volume 87 FL (80-99) Mean Corpuscular Hemoglobin 26.9 PG (27.0-31.0) L Mean Corpuscular Hemoglobin Concent 31.0 G/DL (32.0-36.0) L Red Cell Distribution Width 18.5 % (11.6-14.8) H Platelet Count 415 K/UL (150-450) Mean Platelet Volume 5.9 FL (6.5-10.1) L Neutrophils (%) (Auto) % (45.0-75.0) Lymphocytes (%) (Auto) % (20.0-45.0) Monocytes (%) (Auto) % (1.0-10.0) Eosinophils (%) (Auto) % (0.0-3.0) Basophils (%) (Auto) % (0.0-2.0) Differential Total Cells Counted 100 Neutrophils % (Manual) 80 % (45-75) H Lymphocytes % (Manual) 5 % (20-45) L Monocytes % (Manual) 6 % (1-10) Eosinophils % (Manual) 9 % (0-3) H Basophils % (Manual) 0 % (0-2) Band Neutrophils 0 % (0-8) Platelet Estimate Adequate Platelet Morphology Normal Hypochromasia 2+ Anisocytosis 2+ Sodium Level 143 MMOL/L (136-145) Potassium Level 3.5 MMOL/L (3.5-5.1) Chloride Level 107 MMOL/L (98-107) Carbon Dioxide Level 24 MMOL/L (21-32) Anion Gap 12 mmol/L (5-15) Blood Urea Nitrogen 114 mg/dL (7-18) H Creatinine 2.3 MG/DL (0.55-1.30) H Estimat Glomerular Filtration Rate 33.6 mL/min (>60) Glucose Level 173 MG/DL (74-106) H Calcium Level 9.3 MG/DL (8.5-10.1) Height (Feet): 5 Height (Inches): 4.00 Weight (Pounds): 150 Medications Current Medications Medications (Trade) Dose Ordered Sig/Leonel Route PRN Reason Start Time Stop Time Status Last Admin Dose Admin Acetaminophen (Tylenol) 650 mg Q4H PRN NG Temp >100.5 06/10/19 21:00 07/10/19 20:59 Ascorbic Acid (Vitamin C) 500 mg DAILY GT 06/11/19 09:00 07/11/19 08:59 06/13/19 08:55 Atorvastatin Calcium (Lipitor) 40 mg BEDTIME GT 06/10/19 21:00 09/08/19 20:59 06/12/19 21:10 Dextrose (Dextrose 50%) 25 ml Q30M PRN IV Hypoglycemia 06/10/19 21:00 09/08/19 20:59 Dextrose (Dextrose 50%) 50 ml Q30M PRN IV Hypoglycemia 06/10/19 21:00 09/08/19 20:59 Epoetin Andreas (Epoetin Andreas-EPBX(NON ESRD)) 10,000 unit WED-WED-WED SUBQ 06/12/19 21:00 09/10/19 20:59 06/12/19 21:09 Ferrous Sulfate (Feosol) 330 mg THREE TIMES A DAY NG 06/11/19 09:00 09/09/19 08:59 06/13/19 12:14 Furosemide (Lasix) 80 mg EVERY 12 HOURS IV 06/12/19 21:00 07/11/19 20:59 06/13/19 08:56 Heparin Sodium (Porcine) (Heparin 5000 units/ml) 5,000 units EVERY 12 HOURS SUBQ 06/10/19 21:00 07/25/19 20:59 06/13/19 08:57 Insulin Aspart (NovoLOG) Q6HR SUBQ 06/11/19 12:00 09/08/19 21:59 06/13/19 12:09 Metoprolol Tartrate (Lopressor) 100 mg Q12HR GT 06/10/19 09:00 09/08/19 08:59 06/13/19 08:55 Multivitamins (Multivitamins W/ Minerals 15ml Liquid) 15 ml DAILY GT 06/11/19 09:00 07/11/19 08:59 06/13/19 08:56 Pantoprazole (Protonix) 40 mg DAILY IVP 06/11/19 09:00 07/11/19 08:59 06/13/19 08:56 Piperacillin Sod/ Tazobactam Sod 3.375 gm/Sodium Chloride 110 ml @ 27.5 mls/hr Q12H IVPB 06/11/19 12:00 06/18/19 11:59 06/13/19 12:09 Potassium Chloride (K-Dur) 20 meq TWICE A DAY GT 06/11/19 09:00 09/09/19 08:59 06/13/19 08:55 Vitamin B Complex/ Vit C/Folic Acid (Nephrovite) 1 tab DAILY GT 06/11/19 09:00 07/11/19 08:59 06/13/19 08:55 Assessment/Plan Problem List: (1) Decubitus skin ulcer Assessment & Plan: Pt presented on admission with generalized edema,grossly enlarged scrotum, contractures and multiple pressure injuries. Full thickness stage 4 pressure injury L Sacrum (L)1.6cm x (W)1.8cm x (D)0.3cm. Base of wound has 40% slough,60% beefy red. Borders are macerated. Small amt sanguineus exudate noted. Wound noted to be within field of previous wound. Periwound, skin tone is darker without induration or fluctuance. Scattered areas of hyperpigmentation from previous wounds noted to R and L Buttocks. Grossly enlarged and erythematous scrotum . Clusters of linear partial thickness ulcers noted at base of scrotum.moderate amt of serous exudate noted .Shaft of penis is grossly edematous. DTPI noted to medial L heel. Base of wound is maroon and fluctuant. (L)4cm x (W) 4.5cm. R heel is boggy with non-blanching erythema. Tx.Plan: Cleanse Sacral wound with Saline. Apply TheraHoney.Apply Moisture Barrier Paste periwound. Cover with Optifoam drsg. Change every 3 days and prn. Apply Moisture Barrier Paste to Bilat groin and scrotum with each Incontinence care. Cover each trochanter/Hips areas with Optifoam drsgs. Change every 7 days and prn. Apply Cavilon Skin Barrier to both heels. Cover each heel with Optifoam drsg. Change every 7 days and prn. Reposition at least every 2hours or as tolerated. Off-load heels with Pillow. APM/BECCA Mattress overlay. ICD Codes: L89.90 - Pressure ulcer of unspecified site, unspecified stage SNOMED: 836095301 (2) Malnutrition Assessment & Plan: DAILY ESTIMATED NEEDS: Needs based on Renal, critical care, wound/ 62kg 22-28 kcals/kg 5348-6544 total kcals 1-1.3 (increase w/ renal improvement) g protein/kg 62-81 g total protein 20-25 mL/kg 2297-9016 total fluid mLs NUTRITION DIAGNOSIS: * Swallowing difficulty R/T respiratory failure, dysphagia as evidenced by trach/vent dep, PEG dep * Increased kcal/prot needs R/T wound healing as evidenced by admitted w/ lt buttock open wound, pending eval. CURRENT TF:Nepro @ 45ml/hr x 24 hrs ENTERAL NUTRITION RECOMMENDATIONS: Nepro @ 40ml/hr x 24 hrs to provide 960ml, 1728kcal, 78g prot, 698ml free water * LOWER goal rate to 40ml/hr x 24 hrs : meets 100% est kcal/prot needs * HOB over 30 degrees/ water flush per MD ---- W/ consistently low K level and stable renal fxn, rec to change TF to Glucerna 1.5 @ 45ml/hr x 24 hrs to provide 1080ml, 1620kcal, 89g prot, 820ml free water ADDITIONAL RECOMMENDATIONS: * Per SNF: HT=64" MP=173 lbs (Vs EMR wt of 150lbs) -> obtain re-calibrated bedscale wt * Monitor lytes and renal fxn, need to continue Nepro * Wound healing: Continue Vit C, add Garo BID via PEG * Monitor BGs, need for additional hypoglycemics. ICD Codes: E46 - Unspecified protein-calorie malnutrition SNOMED: 35121506 (3) Chronic respiratory failure Assessment & Plan: FINDINGS: Hardware: Tracheostomy tube terminates in the region of the upper/mid thoracic trachea. Lungs/pleura: Bilateral pleural effusions. Opacities throughout right greater than left lungs, concerning for pulmonary edema and/or infectious/inflammatory process. Heart/mediastinum: Mild enlargement of the cardiac silhouette. Atherosclerotic calcifications of the aorta. Left-sided pacemaker. Soft tissues: Unremarkable. Bones: No acute fracture. Degenerative changes of the spine Upper abdomen: Normal. IMPRESSION: Bilateral pleural effusions. Opacities throughout right greater than left lungs, concerning for pulmonary edema and/or infectious/inflammatory process. Trach Care ICD Codes: J96.10 - Chronic respiratory failure, unspecified whether with hypoxia or hypercapnia SNOMED: 49187513 (4) Anasarca ICD Codes: R60.1 - Generalized edema SNOMED: 298301785, 830540529 (5) Leukocytosis Assessment & Plan: Patient identified to have significant leukocytosis, anemia , abnormal labs. Albumin low. Renal insufficiency. Anasarca. Microbiology noted Sputum sample resulted Antibiotics per infectious disease Wound evaluated likely etiology of patient's infectious source Will monitor closely and provide assistance thank you for let me participate in patient's care ICD Codes: D72.829 - Elevated white blood cell count, unspecified SNOMED: 295214992, 352241323 Jonathan Urias June 13, 2019 16:07
--- NOTE | 2019-06-13 19:25 | NUR ---
NURSE NOTES: Received report from Srinivas Storey RN. Patient asleep, afebrile and has no respiratory distress noted. Tache to vent S8 AC16 TV 450 Fi02 35% peep 5 working well, intact and asymptomatic. On GT with Nephro at 45cc/hr infusing well. With LH 20g IV line intact and asymptomatic. With kat catheter to urine bag draining well. Head of bed elevated. Bed rails are up and working. Continue to monitor patient
--- NOTE | 2019-06-13 19:27 | NUR ---
HAND-OFF: Report given to TAMICA Wang.
[2019-06-13 20:00] VITALS: BP 137/64
[2019-06-13] MEDS: Atorvastatin 20mg tab GT SCH (20:51)
[2019-06-14] VITALS: BP 142/57
--- NOTE | 2019-06-14 01:13 | NUR ---
NURSE NOTES: Patient asleep in bed, afebrile and has no respiratory distress. Suction and oral care done as needed. bed in lowest position. Bed rails are up. Continue to monitor the patient.
[2019-06-14 03:56] VITALS: BP 144/78
--- NOTE | 2019-06-14 04:20 | NUR ---
NURSE NOTES: Patient asleep. No ALOC. bed bath done and changed. Tolerated well
[2019-06-14] MEDS: NovoLOG Insulin Flexpen SUBQ SCH ×4 (06:18→23:23)
[2019-06-14 06:27] LABS: BASOPHILS % (AUTO) 0.7 % (0.0-2.0); EOSINOPHILS % (AUTO) 10.3 % (0.0-3.0); HEMATOCRIT 27.6 % (42.0-52.0); HEMOGLOBIN 8.5 G/DL (14.2-18.0); LYMPHOCYTES % (AUTO) 11.9 % (20.0-45.0); MEAN CORPUSCULAR VOLUME 87 FL (80-99); MONOCYTES % (AUTO) 6.8 % (1.0-10.0); NEUTROPHILS % (AUTO) 70.3 % (45.0-75.0); PLATELET COUNT 435 K/UL (150-450); RED BLOOD COUNT 3.18 M/UL (4.70-6.10); RED CELL DISTRIBUTION WIDTH 18.5 % (11.6-14.8); WHITE BLOOD COUNT 15.9 K/UL (4.8-10.8)
[2019-06-14 06:36] LABS: INR 1.2 (0.9-1.1)
--- NOTE | 2019-06-14 07:00 | NUR ---
NURSE NOTES: HAND-OFF: Report given to Srinivas Esteban RN. Pt stable and asleep in bed. Continue current care plan
[2019-06-14 07:10] LABS: ALANINE AMINOTRANSFERASE 88 U/L (12-78); ALBUMIN/GLOBULIN RATIO 0.4 (1.0-2.7); ALKALINE PHOSPHATASE 398 U/L (46-116); ANION GAP 11 mmol/L (5-15); ASPARTATE AMINO TRANSFERASE 67 U/L (15-37); BILIRUBIN,TOTAL 0.3 MG/DL (0.2-1.0); BLOOD UREA NITROGEN 112 mg/dL (7-18); CALCIUM 9.2 MG/DL (8.5-10.1); CARBON DIOXIDE 26 MMOL/L (21-32); CHLORIDE 107 MMOL/L (98-107); CREATININE 2.3 MG/DL (0.55-1.30); POTASSIUM 3.2 MMOL/L (3.5-5.1); SODIUM 144 MMOL/L (136-145)
--- NOTE | 2019-06-14 07:10 | NUR ---
NURSE NOTES: Received report from TAMICA Wang. Patient is resting in bed, in stable condition. No s/sx of SOB, breathing is even and unlabored, vent settings are as ordered. Patient is nonverbal, sleeping, observed no presence of pain or discomfort at this time. Avalos catheter is patent and draining, yellow clear liquid noted. Bed is in lowest position, brakes engaged. Call light is kept within easy reach. Will continue to monitor patient.
[2019-06-14 08:00] VITALS: BP 148/72
[2019-06-14] MEDS: Ferrous Sulfate 300 MG/5 ML UDC NG SCH ×3 (08:21→17:08)
[2019-06-14] MEDS: Multivitamins W/Minerals 15 ML UDC GT SCH (08:21)
[2019-06-14] MEDS: Pantoprazole Inj IVP SCH (08:21)
[2019-06-14] MEDS: Ascorbic Acid 500mg tab GT SCH (08:22)
[2019-06-14] MEDS: Nephrovite tab (Rena-Vite) GT SCH (08:22)
[2019-06-14] MEDS: Metoprolol Tartrate 100mg tab GT SCH ×2 (08:22→20:06)
[2019-06-14] MEDS: Heparin 5000 units/ml inj SUBQ SCH ×2 (08:25→20:08)
--- NOTE | 2019-06-14 09:39 | NUR ---
RADIOLOGY DEPT., CHEST X-RAY DONE.-P.DYE
--- NOTE | 2019-06-14 09:40 | Pulmonology Progress Note ---
Assessment/Plan Assessment/Plan Anasarca Pulmonary edema scrotal edema Uremia Chronic respiratory failure on Ventilator Hypertension Diabetes Previous pneumonia Subdural hematoma Bedbound Tracheostomy dependent leukocytosis possible sepsis severe PCM anemia PLAN vent support as is renal and ID follow up and clearance antibiotics reviewed cultures noted vent support monitor urine output and labs feeds as tolerated protein and supplement follow up closely remains ill and critical impression, plan, and exam edited and reviewed in detail care discussed with RN Subjective ROS Limited/Unobtainable: Yes Allergies: Coded Allergies: No Known Allergies (Unverified , 06/10/19) Subjective reviewed care consultants noted still edematous poor renal function wbc responding Objective Last 24 Hour Vital Signs Date Time Temp Pulse Resp B/P (MAP) Pulse Ox O2 Delivery O2 Flow Rate FiO2 06/14/19 08:22 67 144/78 06/14/19 08:00 35 06/14/19 08:00 97.8 70 20 148/72 (97) 100 06/14/19 08:00 Mechanical Ventilator 06/14/19 07:30 67 21 35 06/14/19 05:11 62 20 35 06/14/19 04:00 35 06/14/19 04:00 Mechanical Ventilator 06/14/19 03:56 98.2 67 20 144/78 (100) 100 06/14/19 03:52 66 06/14/19 02:31 64 16 35 06/14/19 01:08 69 19 35 06/14/19 00:00 Mechanical Ventilator 06/14/19 00:00 97.9 62 20 142/57 (85) 100 06/13/19 23:35 60 06/13/19 23:18 61 16 35 06/13/19 20:49 66 137/64 06/13/19 20:32 65 17 35 06/13/19 20:00 35 06/13/19 20:00 98.0 65 20 137/64 (88) 100 06/13/19 20:00 Mechanical Ventilator 06/13/19 19:27 66 06/13/19 19:25 69 20 35 06/13/19 17:30 61 18 35 06/13/19 16:00 35 06/13/19 16:00 62 06/13/19 16:00 98.1 63 20 123/68 (86) 100 06/13/19 16:00 Mechanical Ventilator 5/5/20 14:54 63 20 35 06/13/19 13:29 60 18 35 06/13/19 12:00 Mechanical Ventilator 06/13/19 12:00 98.1 61 20 137/64 (88) 100 06/13/19 12:00 35 06/13/19 12:00 60 06/13/19 11:30 61 19 35 Intake and Output 06/13/19 06/14/19 19:00 07:00 Intake Total 905.0 ml 650.0 ml Output Total 1500 ml 2000 ml Balance -595.0 ml -1350.0 ml Intake Free Water 300 ml IV Total 110.0 ml 110.0 ml Tube Feeding 495 ml 540 ml Output Urine Total 1500 ml 2000 ml # Bowel Movements 1 2 Objective WDWN NAD trach and gt clear breath sounds bilaterally without rhonchi or wheeze [id number] without MRG NABS nontender no HSM no CC noted edema scrotal edema nonfocal reviewed and edited HEENT: mucous membranes moist Neurologic/Psychiatric: unresponsiveness Microbiology Date/Time Source Procedure Growth Status 06/11/19 13:00 Nasopharynx Coronavirus COVID-19 PCR ([facility]) - Final Complete 06/11/19 11:15 Sputum Induced Gram Stain - Final Complete 06/11/19 11:15 Sputum Culture - Final Streptococcus Group G Pseudomonas Aeruginosa Stenotrophomonas Maltophilia Complete 06/11/19 11:15 Indwelling Cath Urine Culture - Final Kelsi Albicans Complete Laboratory Tests 06/14/19 04:03: White Blood Count 15.9H, Red Blood Count 3.18L, Hemoglobin 8.5L, Hematocrit 27.6L, Mean Corpuscular Volume 87, Mean Corpuscular Hemoglobin 26.8L, Mean Corpuscular Hemoglobin Concent 31.0L, Red Cell Distribution Width 18.5H, Platelet Count 435, Mean Platelet Volume 5.7L, Neutrophils (%) (Auto) 70.3, Lymphocytes (%) (Auto) 11.9L, Monocytes (%) (Auto) 6.8, Eosinophils (%) (Auto) 10.3H, Basophils (%) (Auto) 0.7, Erythrocyte Sedimentation Rate 111H, Prothrombin Time 12.2H, Prothromb Time International Ratio 1.2H, Activated Partial Thromboplast Time 34H, Sodium Level 144, Potassium Level 3.2L, Chloride Level 107, Carbon Dioxide Level 26, Anion Gap 11, Blood Urea Nitrogen 112H, Creatinine 2.3H, Estimat Glomerular Filtration Rate 33.6, Glucose Level 140H, Calcium Level 9.2, Total Bilirubin 0.3, Aspartate Amino Transf (AST/SGOT) 67H, Alanine Aminotransferase (ALT/SGPT) 88H, Alkaline Phosphatase 398H, C-Reactive Protein, Quantitative 16.6H, Total Protein 7.5, Albumin 2.0L, Globulin 5.5, Albumin/Globulin Ratio 0.4L Current Medications Medications (Trade) Dose Ordered Sig/Leonel Route PRN Reason Start Time Stop Time Status Last Admin Dose Admin Acetaminophen (Tylenol) 650 mg Q4H PRN NG Temp >100.5 06/10/19 21:00 07/10/19 20:59 Ascorbic Acid (Vitamin C) 500 mg DAILY GT 06/11/19 09:00 07/11/19 08:59 06/14/19 08:22 Atorvastatin Calcium (Lipitor) 40 mg BEDTIME GT 06/10/19 21:00 09/08/19 20:59 06/13/19 20:51 Dextrose (Dextrose 50%) 25 ml Q30M PRN IV Hypoglycemia 06/10/19 21:00 09/08/19 20:59 Dextrose (Dextrose 50%) 50 ml Q30M PRN IV Hypoglycemia 06/10/19 21:00 09/08/19 20:59 Epoetin Andreas (Epoetin Andreas-EPBX(NON ESRD)) 10,000 unit WED-WED-WED SUBQ 06/12/19 21:00 09/10/19 20:59 06/12/19 21:09 Ferrous Sulfate (Feosol) 330 mg THREE TIMES A DAY NG 06/11/19 09:00 09/09/19 08:59 06/14/19 08:21 Furosemide (Lasix) 80 mg EVERY 12 HOURS IV 06/12/19 21:00 07/11/19 20:59 06/14/19 08:23 Heparin Sodium (Porcine) (Heparin 5000 units/ml) 5,000 units EVERY 12 HOURS SUBQ 06/10/19 21:00 07/25/19 20:59 06/14/19 08:25 Insulin Aspart (NovoLOG) Q6HR SUBQ 06/11/19 12:00 09/08/19 21:59 06/14/19 06:18 Metoprolol Tartrate (Lopressor) 100 mg Q12HR GT 06/10/19 09:00 09/08/19 08:59 06/14/19 08:22 Multivitamins (Multivitamins W/ Minerals 15ml Liquid) 15 ml DAILY GT 06/11/19 09:00 07/11/19 08:59 06/14/19 08:21 Pantoprazole (Protonix) 40 mg DAILY IVP 06/11/19 09:00 07/11/19 08:59 06/14/19 08:21 Piperacillin Sod/ Tazobactam Sod 3.375 gm/Sodium Chloride 110 ml @ 27.5 mls/hr Q12H IVPB 06/11/19 12:00 06/18/19 11:59 06/13/19 23:51 Potassium Chloride (K-Dur) 20 meq TWICE A DAY GT 06/11/19 09:00 09/09/19 08:59 06/14/19 08:24 Vitamin B Complex/ Vit C/Folic Acid (Nephrovite) 1 tab DAILY GT 06/11/19 09:00 07/11/19 08:59 06/14/19 08:22 Kain Ramirez MD June 14, 2019 09:40
--- NOTE | 2019-06-14 10:06 | NUR ---
NURSE NOTES: Called and left message with Dr. Frank, , regarding patient's potassium level of 3.2 today, and BUN 112, creatinine 2.3. BP 148/72 HR 70. Patient is on K-dur 20 mEq GT BID. Awaiting call back. Charge nurse aware. Will continue to monitor patient.
--- NOTE | 2019-06-14 10:19 | NUR ---
NURSE NOTES: Dr. Frank called back nurse station, informed Dr. Frank that patient's potassium level today is 3.2, BUN 112, creatinine 2.3 and patient is on K-dur [address] Frank acknowledged and ordered K-dur 40 mEq GT BID only for today. Order entered, noted, and carried out. Will continue to monitor patient.
--- NOTE | 2019-06-14 10:34 | Infectious Diseases Prog Note ---
Assessment/Plan Assessment/Plan antibiotics : zosyn A 1. pneumonia with streptococcus, pseudomonas, stenotrophomonas COVID 19 test negative 5,,20 2. respiratory failure 3. leucocytosis improving 4. diabetes mellitus 5. hypertension 6. renal failure 7. SDH 8. + blood cultures with coag neg staph likely contaminated 9. QT prolongation P 1. d/c zosyn 2. start levoquin 3. continue isolation Subjective ROS Limited/Unobtainable: Yes Allergies: Coded Allergies: No Known Allergies (Unverified , 06/10/19) Objective Vital Signs Last 24 Hour Vital Signs Date Time Temp Pulse Resp B/P (MAP) Pulse Ox O2 Delivery O2 Flow Rate FiO2 06/14/19 10:13 62 20 35 06/14/19 10:12 100 06/14/19 10:07 61 20 35 06/14/19 08:22 67 144/78 06/14/19 08:00 35 06/14/19 08:00 97.8 70 20 148/72 (97) 100 06/14/19 08:00 67 06/14/19 08:00 Mechanical Ventilator 06/14/19 07:30 67 21 35 06/14/19 05:11 62 20 35 06/14/19 04:00 35 06/14/19 04:00 Mechanical Ventilator 06/14/19 03:56 98.2 67 20 144/78 (100) 100 06/14/19 03:52 66 06/14/19 02:31 64 16 35 06/14/19 01:08 69 19 35 06/14/19 00:00 Mechanical Ventilator 06/14/19 00:00 97.9 62 20 142/57 (85) 100 06/13/19 23:35 60 06/13/19 23:18 61 16 35 06/13/19 20:49 66 137/64 06/13/19 20:32 65 17 35 06/13/19 20:00 35 06/13/19 20:00 98.0 65 20 137/64 (88) 100 06/13/19 20:00 Mechanical Ventilator 06/13/19 19:27 66 06/13/19 19:25 69 20 35 06/13/19 17:30 61 18 35 06/13/19 16:00 35 06/13/19 16:00 62 06/13/19 16:00 98.1 63 20 123/68 (86) 100 06/13/19 16:00 Mechanical Ventilator 06/13/19 14:54 63 20 35 06/13/19 13:29 60 18 35 06/13/19 12:00 Mechanical Ventilator 06/13/19 12:00 98.1 61 20 137/64 (88) 100 06/13/19 12:00 35 06/13/19 12:00 60 06/13/19 11:30 61 19 35 Height (Feet): 5 Height (Inches): 4.00 Weight (Pounds): 162 HEENT: status post trach Microbiology Date/Time Source Procedure Growth Status 06/11/19 13:00 Nasopharynx Coronavirus COVID-19 PCR ([facility]) - Final Complete 06/11/19 11:15 Sputum Induced Gram Stain - Final Complete 06/11/19 11:15 Sputum Culture - Final Streptococcus Group G Pseudomonas Aeruginosa Stenotrophomonas Maltophilia Complete 06/11/19 11:15 Indwelling Cath Urine Culture - Final Kelsi Albicans Complete Laboratory Tests Test 06/14/19 04:03 White Blood Count 15.9 K/UL (4.8-10.8) H Red Blood Count 3.18 M/UL (4.70-6.10) L Hemoglobin 8.5 G/DL (14.2-18.0) L Hematocrit 27.6 % (42.0-52.0) L Mean Corpuscular Volume 87 FL (80-99) Mean Corpuscular Hemoglobin 26.8 PG (27.0-31.0) L Mean Corpuscular Hemoglobin Concent 31.0 G/DL (32.0-36.0) L Red Cell Distribution Width 18.5 % (11.6-14.8) H Platelet Count 435 K/UL (150-450) Mean Platelet Volume 5.7 FL (6.5-10.1) L Neutrophils (%) (Auto) 70.3 % (45.0-75.0) Lymphocytes (%) (Auto) 11.9 % (20.0-45.0) L Monocytes (%) (Auto) 6.8 % (1.0-10.0) Eosinophils (%) (Auto) 10.3 % (0.0-3.0) H Basophils (%) (Auto) 0.7 % (0.0-2.0) Erythrocyte Sedimentation Rate 111 MM/HR (0-20) H Prothrombin Time 12.2 SEC (9.30-11.50) H Prothromb Time International Ratio 1.2 (0.9-1.1) H Activated Partial Thromboplast Time 34 SEC (23-33) H Sodium Level 144 MMOL/L (136-145) Potassium Level 3.2 MMOL/L (3.5-5.1) L Chloride Level 107 MMOL/L (98-107) Carbon Dioxide Level 26 MMOL/L (21-32) Anion Gap 11 mmol/L (5-15) Blood Urea Nitrogen 112 mg/dL (7-18) H Creatinine 2.3 MG/DL (0.55-1.30) H Estimat Glomerular Filtration Rate 33.6 mL/min (>60) Glucose Level 140 MG/DL (74-106) H Calcium Level 9.2 MG/DL (8.5-10.1) Total Bilirubin 0.3 MG/DL (0.2-1.0) Aspartate Amino Transf (AST/SGOT) 67 U/L (15-37) H Alanine Aminotransferase (ALT/SGPT) 88 U/L (12-78) H Alkaline Phosphatase 398 U/L (46-116) H C-Reactive Protein, Quantitative 16.6 mg/dL (0.00-0.90) H Total Protein 7.5 G/DL (6.4-8.2) Albumin 2.0 G/DL (3.4-5.0) L Globulin 5.5 g/dL Albumin/Globulin Ratio 0.4 (1.0-2.7) L Current Medications Medications (Trade) Dose Ordered Sig/Leonel Route PRN Reason Start Time Stop Time Status Last Admin Dose Admin Acetaminophen (Tylenol) 650 mg Q4H PRN NG Temp >100.5 06/10/19 21:00 07/10/19 20:59 Ascorbic Acid (Vitamin C) 500 mg DAILY GT 06/11/19 09:00 07/11/19 08:59 06/14/19 08:22 Atorvastatin Calcium (Lipitor) 40 mg BEDTIME GT 06/10/19 21:00 09/08/19 20:59 06/13/19 20:51 Dextrose (Dextrose 50%) 25 ml Q30M PRN IV Hypoglycemia 06/10/19 21:00 09/08/19 20:59 Dextrose (Dextrose 50%) 50 ml Q30M PRN IV Hypoglycemia 06/10/19 21:00 09/08/19 20:59 Epoetin Andreas (Epoetin Andreas-EPBX(NON ESRD)) 10,000 unit WED-WED-WED SUBQ 06/12/19 21:00 09/10/19 20:59 06/12/19 21:09 Ferrous Sulfate (Feosol) 330 mg THREE TIMES A DAY NG 06/11/19 09:00 09/09/19 08:59 06/14/19 08:21 Furosemide (Lasix) 80 mg EVERY 12 HOURS IV 06/12/19 21:00 07/11/19 20:59 06/14/19 08:23 Heparin Sodium (Porcine) (Heparin 5000 units/ml) 5,000 units EVERY 12 HOURS SUBQ 06/10/19 21:00 07/25/19 20:59 06/14/19 08:25 Insulin Aspart (NovoLOG) Q6HR SUBQ 06/11/19 12:00 09/08/19 21:59 06/14/19 06:18 Metoprolol Tartrate (Lopressor) 100 mg Q12HR GT 06/10/19 09:00 09/08/19 08:59 06/14/19 08:22 Multivitamins (Multivitamins W/ Minerals 15ml Liquid) 15 ml DAILY GT 06/11/19 09:00 07/11/19 08:59 06/14/19 08:21 Pantoprazole (Protonix) 40 mg DAILY IVP 06/11/19 09:00 07/11/19 08:59 06/14/19 08:21 Piperacillin Sod/ Tazobactam Sod 3.375 gm/Sodium Chloride 110 ml @ 27.5 mls/hr Q12H IVPB 06/11/19 12:00 06/18/19 11:59 06/13/19 23:51 Potassium Chloride (K-Dur) 20 meq ONCE GT 06/14/19 12:00 06/14/19 13:00 Potassium Chloride (K-Dur) 20 meq ONCE GT 06/14/19 18:00 06/14/19 20:00 Potassium Chloride (K-Dur) 20 meq TWICE A DAY GT 06/11/19 09:00 09/09/19 08:59 06/14/19 08:24 Vitamin B Complex/ Vit C/Folic Acid (Nephrovite) 1 tab DAILY GT 06/11/19 09:00 07/11/19 08:59 06/14/19 08:22 Farnaz Lyle MD June 14, 2019 10:34
--- NOTE | 2019-06-14 10:41 | NUR ---
CASE MANAGEMENT:REVIEW SI;ANASARCA. PULMONARY EDEMA. VENT/TRACH DEPENDENT PNA W/ STREPTOCOCCUS, PSUEDOMONAS, STENOTROPHOMONAS. 98.2 70 21 148/72 100% TRACH/VENT AC 16 TV 450 PEEP 5 FIO2 @ 35% WBC 15.9 H/H 8.5/27.6 K+ 3.2 BUN 112 CR 2.3 AST 67 ALT 88 ALK PHOS 398 ALB 2.0 IS;K-DUR GT ONCE LEVAQUIN GT QD LASIX IV Q12 HRS ZOSYN IV Q12 HRS FEOSOL GT TID PROTONIX IV QD VIT C GT QD KEREN STATUS DCP;PATIENT IS FROM [facility] [place]
--- NOTE | 2019-06-14 11:27 | Diagnostic Imaging Report ---
Indication: Shortness of breath Technique: One view of the chest Comparison: 06/10/2019 Findings: Patient is slightly rotated to the right. Again demonstrated is extensive bilateral diffuse interstitial and airspace disease. There are small bilateral pleural effusions again demonstrated. Extensive disease appears overall unchanged. Tracheostomy, left chest pacemaker again demonstrated. The heart size is upper limits normal. Impression: Unchanged, over 4 days, findings as above.
[2019-06-14 12:00] VITALS: BP 120/67
--- NOTE | 2019-06-14 13:46 | NUR ---
*-* INSURANCE *-* ALL AVAILABLE CLINICALS HAVE BEEN FAXED TO: [facility] tracking# [id number] ; Jessy ph# [phone] ext [phone] fax# [phone]
--- NOTE | 2019-06-14 14:57 | Surgery Progress Note ---
Surgery Progress Note Subjective Additional Comments no acute events labs noted exam stable Objective Last 24 Hour Vital Signs Date Time Temp Pulse Resp B/P (MAP) Pulse Ox O2 Delivery O2 Flow Rate FiO2 06/14/19 13:22 60 21 35 06/14/19 12:00 35 06/14/19 12:00 97.7 63 20 120/67 (84) 100 06/14/19 12:00 Mechanical Ventilator 06/14/19 12:00 115 06/14/19 11:22 64 19 35 06/14/19 10:13 62 20 35 06/14/19 10:12 100 06/14/19 10:07 61 20 35 06/14/19 08:22 67 144/78 06/14/19 08:00 35 06/14/19 08:00 97.8 70 20 148/72 (97) 100 06/14/19 08:00 67 06/14/19 08:00 Mechanical Ventilator 06/14/19 07:30 67 21 35 06/14/19 05:11 62 20 35 06/14/19 04:00 35 06/14/19 04:00 Mechanical Ventilator 06/14/19 03:56 98.2 67 20 144/78 (100) 100 06/14/19 03:52 66 06/14/19 02:31 64 16 35 06/14/19 01:08 69 19 35 06/14/19 00:00 Mechanical Ventilator 06/14/19 00:00 97.9 62 20 142/57 (85) 100 06/13/19 23:35 60 06/13/19 23:18 61 16 35 06/13/19 20:49 66 137/64 06/13/19 20:32 65 17 35 06/13/19 20:00 35 06/13/19 20:00 98.0 65 20 137/64 (88) 100 06/13/19 20:00 Mechanical Ventilator 06/13/19 19:27 66 06/13/19 19:25 69 20 35 06/13/19 17:30 61 18 35 06/13/19 16:00 35 06/13/19 16:00 62 06/13/19 16:00 98.1 63 20 123/68 (86) 100 06/13/19 16:00 Mechanical Ventilator I&O Intake and Output 06/13/19 06/14/19 19:00 07:00 Intake Total 905.0 ml 650.0 ml Output Total 1500 ml 2000 ml Balance -595.0 ml -1350.0 ml Intake Free Water 300 ml IV Total 110.0 ml 110.0 ml Tube Feeding 495 ml 540 ml Output Urine Total 1500 ml 2000 ml # Bowel Movements 1 2 Dressing: other Wound: other Drains: other Cardiovascular: RSR Respiratory: decreased breath sounds Abdomen: soft, non-tender, present bowel sounds Extremities: no cyanosis Laboratory Tests Test 06/14/19 04:03 White Blood Count 15.9 K/UL (4.8-10.8) H Red Blood Count 3.18 M/UL (4.70-6.10) L Hemoglobin 8.5 G/DL (14.2-18.0) L Hematocrit 27.6 % (42.0-52.0) L Mean Corpuscular Volume 87 FL (80-99) Mean Corpuscular Hemoglobin 26.8 PG (27.0-31.0) L Mean Corpuscular Hemoglobin Concent 31.0 G/DL (32.0-36.0) L Red Cell Distribution Width 18.5 % (11.6-14.8) H Platelet Count 435 K/UL (150-450) Mean Platelet Volume 5.7 FL (6.5-10.1) L Neutrophils (%) (Auto) 70.3 % (45.0-75.0) Lymphocytes (%) (Auto) 11.9 % (20.0-45.0) L Monocytes (%) (Auto) 6.8 % (1.0-10.0) Eosinophils (%) (Auto) 10.3 % (0.0-3.0) H Basophils (%) (Auto) 0.7 % (0.0-2.0) Erythrocyte Sedimentation Rate 111 MM/HR (0-20) H Prothrombin Time 12.2 SEC (9.30-11.50) H Prothromb Time International Ratio 1.2 (0.9-1.1) H Activated Partial Thromboplast Time 34 SEC (23-33) H Sodium Level 144 MMOL/L (136-145) Potassium Level 3.2 MMOL/L (3.5-5.1) L Chloride Level 107 MMOL/L (98-107) Carbon Dioxide Level 26 MMOL/L (21-32) Anion Gap 11 mmol/L (5-15) Blood Urea Nitrogen 112 mg/dL (7-18) H Creatinine 2.3 MG/DL (0.55-1.30) H Estimat Glomerular Filtration Rate 33.6 mL/min (>60) Glucose Level 140 MG/DL (74-106) H Calcium Level 9.2 MG/DL (8.5-10.1) Total Bilirubin 0.3 MG/DL (0.2-1.0) Aspartate Amino Transf (AST/SGOT) 67 U/L (15-37) H Alanine Aminotransferase (ALT/SGPT) 88 U/L (12-78) H Alkaline Phosphatase 398 U/L (46-116) H C-Reactive Protein, Quantitative 16.6 mg/dL (0.00-0.90) H Total Protein 7.5 G/DL (6.4-8.2) Albumin 2.0 G/DL (3.4-5.0) L Globulin 5.5 g/dL Albumin/Globulin Ratio 0.4 (1.0-2.7) L Plan Problems: (1) Decubitus skin ulcer Assessment & Plan: Pt presented on admission with generalized edema,grossly enlarged scrotum, contractures and multiple pressure injuries. Full thickness stage 4 pressure injury L Sacrum (L)1.6cm x (W)1.8cm x (D)0.3cm. Base of wound has 40% slough,60% beefy red. Borders are macerated. Small amt sanguineus exudate noted. Wound noted to be within field of previous wound. Periwound, skin tone is darker without induration or fluctuance. Scattered areas of hyperpigmentation from previous wounds noted to R and L Buttocks. Grossly enlarged and erythematous scrotum . Clusters of linear partial thickness ulcers noted at base of scrotum.moderate amt of serous exudate noted .Shaft of penis is grossly edematous. DTPI noted to medial L heel. Base of wound is maroon and fluctuant. (L)4cm x (W) 4.5cm. R heel is boggy with non-blanching erythema. Tx.Plan: Cleanse Sacral wound with Saline. Apply TheraHoney.Apply Moisture Barrier Paste periwound. Cover with Optifoam drsg. Change every 3 days and prn. Apply Moisture Barrier Paste to Bilat groin and scrotum with each Incontinence care. Cover each trochanter/Hips areas with Optifoam drsgs. Change every 7 days and prn. Apply Cavilon Skin Barrier to both heels. Cover each heel with Optifoam drsg. Change every 7 days and prn. Reposition at least every 2hours or as tolerated. Off-load heels with Pillow. APM/BECCA Mattress overlay. (2) Malnutrition Assessment & Plan: DAILY ESTIMATED NEEDS: Needs based on Renal, critical care, wound/ 62kg 22-28 kcals/kg 9178-1622 total kcals 1-1.3 (increase w/ renal improvement) g protein/kg 62-81 g total protein 20-25 mL/kg 3449-7410 total fluid mLs NUTRITION DIAGNOSIS: * Swallowing difficulty R/T respiratory failure, dysphagia as evidenced by trach/vent dep, PEG dep * Increased kcal/prot needs R/T wound healing as evidenced by admitted w/ lt buttock open wound, pending eval. CURRENT TF:Nepro @ 45ml/hr x 24 hrs ENTERAL NUTRITION RECOMMENDATIONS: Nepro @ 40ml/hr x 24 hrs to provide 960ml, 1728kcal, 78g prot, 698ml free water * LOWER goal rate to 40ml/hr x 24 hrs : meets 100% est kcal/prot needs * HOB over 30 degrees/ water flush per MD ---- W/ consistently low K level and stable renal fxn, rec to change TF to Glucerna 1.5 @ 45ml/hr x 24 hrs to provide 1080ml, 1620kcal, 89g prot, 820ml free water ADDITIONAL RECOMMENDATIONS: * Per SNF: HT=64" MD=908 lbs (Vs EMR wt of 150lbs) -> obtain re-calibrated bedscale wt * Monitor lytes and renal fxn, need to continue Nepro * Wound healing: Continue Vit C, add Garo BID via PEG * Monitor BGs, need for additional hypoglycemics. (3) Chronic respiratory failure Assessment & Plan: FINDINGS: Hardware: Tracheostomy tube terminates in the region of the upper/mid thoracic trachea. Lungs/pleura: Bilateral pleural effusions. Opacities throughout right greater than left lungs, concerning for pulmonary edema and/or infectious/inflammatory process. Heart/mediastinum: Mild enlargement of the cardiac silhouette. Atherosclerotic calcifications of the aorta. Left-sided pacemaker. Soft tissues: Unremarkable. Bones: No acute fracture. Degenerative changes of the spine Upper abdomen: Normal. IMPRESSION: Bilateral pleural effusions. Opacities throughout right greater than left lungs, concerning for pulmonary edema and/or infectious/inflammatory process. Trach Care (4) Anasarca (5) Leukocytosis Assessment & Plan: Patient identified to have significant leukocytosis, anemia , abnormal labs. Albumin low. Renal insufficiency. Anasarca. Microbiology noted Sputum sample resulted Antibiotics per infectious disease Wound evaluated likely etiology of patient's infectious source Will monitor closely and provide assistance thank you for let me participate in patient's care Jonathan Urias June 14, 2019 14:57
[2019-06-14 16:00] VITALS: BP 146/82
--- NOTE | 2019-06-14 19:15 | NUR ---
HAND-OFF: Report given to TAMICA Wang.
[2019-06-14 20:00] VITALS: BP 149/80
[2019-06-14] MEDS: Atorvastatin 20mg tab GT SCH (20:06)
--- NOTE | 2019-06-14 20:20 | Nephrology Progress Note ---
Assessment/Plan Problem List: (1) Hypokalemia (2) CKD (chronic kidney disease) stage 5, GFR less than 15 ml/min (3) Anasarca (4) Pulmonary edema (5) Chronic respiratory failure (6) Uremia Plan continue iv lasix, kcl gfr 7, avoid nephrotoxins Subjective ROS Limited/Unobtainable: Yes Objective Objective Last 24 Hour Vital Signs Date Time Temp Pulse Resp B/P (MAP) Pulse Ox O2 Delivery O2 Flow Rate FiO2 06/14/19 20:06 71 149/80 06/14/19 17:26 68 23 35 06/14/19 16:00 67 06/14/19 16:00 35 06/14/19 16:00 Mechanical Ventilator 06/14/19 16:00 98.1 67 20 146/82 (103) 100 06/14/19 15:57 69 21 35 06/14/19 13:22 60 21 35 06/14/19 12:00 35 06/14/19 12:00 97.7 63 20 120/67 (84) 100 06/14/19 12:00 Mechanical Ventilator 06/14/19 12:00 115 06/14/19 11:22 64 19 35 06/14/19 10:13 62 20 35 06/14/19 10:12 100 06/14/19 10:07 61 20 35 06/14/19 08:22 67 144/78 06/14/19 08:00 35 06/14/19 08:00 97.8 70 20 148/72 (97) 100 06/14/19 08:00 67 06/14/19 08:00 Mechanical Ventilator 06/14/19 07:30 67 21 35 06/14/19 05:11 62 20 35 06/14/19 04:00 35 06/14/19 04:00 Mechanical Ventilator 06/14/19 03:56 98.2 67 20 144/78 (100) 100 06/14/19 03:52 66 06/14/19 02:31 64 16 35 06/14/19 01:08 69 19 35 06/14/19 00:00 Mechanical Ventilator 06/14/19 00:00 97.9 62 20 142/57 (85) 100 06/13/19 23:35 60 06/13/19 23:18 61 16 35 06/13/19 20:49 66 137/64 06/13/19 20:32 65 17 35 Intake and Output 06/13/19 06/14/19 19:00 07:00 Intake Total 905.0 ml 650.0 ml Output Total 1500 ml 2000 ml Balance -595.0 ml -1350.0 ml Intake Free Water 300 ml IV Total 110.0 ml 110.0 ml Tube Feeding 495 ml 540 ml Output Urine Total 1500 ml 2000 ml # Bowel Movements 1 2 Laboratory Tests 06/14/19 04:03: White Blood Count 15.9H, Red Blood Count 3.18L, Hemoglobin 8.5L, Hematocrit 27.6L, Mean Corpuscular Volume 87, Mean Corpuscular Hemoglobin 26.8L, Mean Corpuscular Hemoglobin Concent 31.0L, Red Cell Distribution Width 18.5H, Platelet Count 435, Mean Platelet Volume 5.7L, Neutrophils (%) (Auto) 70.3, Lymphocytes (%) (Auto) 11.9L, Monocytes (%) (Auto) 6.8, Eosinophils (%) (Auto) 10.3H, Basophils (%) (Auto) 0.7, Erythrocyte Sedimentation Rate 111H, Prothrombin Time 12.2H, Prothromb Time International Ratio 1.2H, Activated Partial Thromboplast Time 34H, Sodium Level 144, Potassium Level 3.2L, Chloride Level 107, Carbon Dioxide Level 26, Anion Gap 11, Blood Urea Nitrogen 112H, Creatinine 2.3H, Estimat Glomerular Filtration Rate 33.6, Glucose Level 140H, Calcium Level 9.2, Total Bilirubin 0.3, Aspartate Amino Transf (AST/SGOT) 67H, Alanine Aminotransferase (ALT/SGPT) 88H, Alkaline Phosphatase 398H, C-Reactive Protein, Quantitative 16.6H, Total Protein 7.5, Albumin 2.0L, Globulin 5.5, Albumin/Globulin Ratio 0.4L Height (Feet): 5 Height (Inches): 4.00 Weight (Pounds): 162 General Appearance: lethargic Neck: other - trach Cardiovascular: regular rhythm Respiratory/Chest: crackles/rales Extremities: non-tender, trace edema Neurologic: unresponsive Carmelo Frank MD June 14, 2019 20:20
[2019-06-14] MEDS: Epoetin Alfa-EPBX (NON ESRD)10,000 unit/ml vial SUBQ SCH (21:42)
[2019-06-15] VITALS: BP 145/74
--- NOTE | 2019-06-15 01:10 | NUR ---
NURSE NOTES: Patient asleep in bed. Head of bed elevated. Suctioned and oral care as needed. No change in LOC. VS are stable same as patient. Continue to monitor.
[2019-06-15 04:00] VITALS: BP 160/79
[2019-06-15] MEDS: NovoLOG Insulin Flexpen SUBQ SCH ×4 (05:11→23:34)
[2019-06-15 06:24] LABS: ANION GAP 11 mmol/L (5-15); BLOOD UREA NITROGEN 104 mg/dL (7-18); CALCIUM 9.2 MG/DL (8.5-10.1); CARBON DIOXIDE 29 MMOL/L (21-32); CHLORIDE 106 MMOL/L (98-107); CREATININE 2.3 MG/DL (0.55-1.30); POTASSIUM 3.5 MMOL/L (3.5-5.1); SODIUM 146 MMOL/L (136-145)
--- NOTE | 2019-06-15 07:10 | NUR ---
HAND-OFF: Report given to Srinivas Storey RN. Pt asleep in bed. HOB elevated. Needs were attended.
--- NOTE | 2019-06-15 07:12 | NUR ---
NURSE NOTES: Received report from TAMICA Wang. Patient is resting in bed, in stable condition. No s/sx of SOB, breathing is even and unlabored, vent settings as ordered. pt is nonverbal, sleeping, no pain observed. Bed is in lowest position, brakes engaged. Call light kept in place. Will continue to monitor patient.
--- NOTE | 2019-06-15 07:23 | NUR ---
RESPIRATORY NOTE: Received pt on trach cuffed Shiley 8.0, secured bu trach tie and trach guard, on the current vent settings. Pt is resting in bed, no SOB or resp distress noted. Alarms are set and audible, vent is plugged into the red outlet, ambu bag and spare trach kit are at bedside. Will continue to monitor.
[2019-06-15 08:00] VITALS: BP 152/57
--- NOTE | 2019-06-15 08:42 | NUR ---
RD ASSESSMENT & RECOMMENDATIONS SEE CARE ACTIVITY FOR COMPLETE ASSESSMENT DAILY ESTIMATED NEEDS: Needs based on Renal, critical care, wound/ 62kg 22-28 kcals/kg 2666-5680 total kcals 1.25-1.5 (increase w/ renal improvement) g protein/kg 77-93 g total protein 20-25 mL/kg 0314-8959 total fluid mLs NUTRITION DIAGNOSIS: * Swallowing difficulty R/T respiratory failure, dysphagia as evidenced by trach/vent dep, PEG dep * Increased kcal/prot needs R/T wound healing as evidenced by admitted w/ multiple pressure injuries including full thickness at L sacrum. CURRENT TF:Nepro @ 45ml/hr x 24 hrs ENTERAL NUTRITION RECOMMENDATIONS: Glucerna 1.5 @ 45ml/hr x 24 hrs to provide 1080ml, 1620kcal, 89g prot, 820ml free water * Rec TF change to Glucerna 1.5- consistently low K, stable creat (1.9-2.3) Renal TF of Nepro is unnecessary at this time. * Initiate Glucerna 1.5 @ 35ml/hr x 24 hrs, advance as tolerated to goal. * HOB over 30 degrees/ water flush per MD ------- Monitor renal fxn and lytes closely, need for renal TF formula ADDITIONAL RECOMMENDATIONS: * Per SNF: HT=64" FV=412 lbs (Vs EMR wt of 150lbs) -> obtain re-calibrated bedscale wt * Monitor lytes and renal fxn, need to continue Nepro -> K consistently low, creat stable, Nepro is unncessary at this time * Monitor BGs- good BG control at thsi time * Wound healing: Continue Vit C, add Garo BID via PEG
--- NOTE | 2019-06-15 09:07 | Pulmonology Progress Note ---
Subjective ROS Limited/Unobtainable: Yes Allergies: Coded Allergies: No Known Allergies (Unverified , 06/10/19) Subjective reviewed care consultants noted seems slightly better poor renal function wbc better Objective Last 24 Hour Vital Signs Date Time Temp Pulse Resp B/P (MAP) Pulse Ox O2 Delivery O2 Flow Rate FiO2 06/15/19 05:10 62 18 35 06/15/19 04:00 98.4 69 20 160/79 (106) 100 06/15/19 04:00 35 06/15/19 04:00 Mechanical Ventilator 06/15/19 03:34 69 06/15/19 03:30 63 20 35 06/15/19 01:28 65 17 35 06/15/19 00:00 98.0 65 20 145/74 (97) 100 06/15/19 00:00 Mechanical Ventilator 06/14/19 23:30 64 18 35 06/14/19 23:29 64 06/14/19 21:30 60 21 35 06/14/19 20:06 71 149/80 06/14/19 20:00 98.2 71 20 149/80 (103) 100 06/14/19 20:00 68 06/14/19 20:00 35 06/14/19 20:00 Mechanical Ventilator 06/14/19 19:30 61 20 35 06/14/19 17:26 68 23 35 06/14/19 16:00 67 06/14/19 16:00 35 06/14/19 16:00 Mechanical Ventilator 06/14/19 16:00 98.1 67 20 146/82 (103) 100 06/14/19 15:57 69 21 35 06/14/19 13:22 60 21 35 06/14/19 12:00 35 06/14/19 12:00 97.7 63 20 120/67 (84) 100 06/14/19 12:00 Mechanical Ventilator 06/14/19 12:00 115 06/14/19 11:22 64 19 35 06/14/19 10:13 62 20 35 06/14/19 10:12 100 06/14/19 10:07 61 20 35 Intake and Output 06/14/19 06/15/19 19:00 07:00 Intake Total 945 ml 540 ml Output Total 2000 ml 2400 ml Balance -1055 ml -1860 ml Intake Free Water 450 ml Tube Feeding 495 ml 540 ml Output Urine Total 2000 ml 2400 ml # Bowel Movements 4 4 Objective WDWN NAD trach and gt clear breath sounds bilaterally without rhonchi or wheeze [id number] without MRG NABS nontender no HSM no CC noted edema scrotal edema nonfocal reviewed and edited HEENT: status post trach Neurologic/Psychiatric: unresponsiveness Laboratory Tests 06/15/19 05:20: Sodium Level 146H, Potassium Level 3.5, Chloride Level 106, Carbon Dioxide Level 29, Anion Gap 11, Blood Urea Nitrogen 104H, Creatinine 2.3H, Estimat Glomerular Filtration Rate 33.6, Glucose Level 98, Calcium Level 9.2 Current Medications Medications (Trade) Dose Ordered Sig/Leonel Route PRN Reason Start Time Stop Time Status Last Admin Dose Admin Acetaminophen (Tylenol) 650 mg Q4H PRN NG Temp >100.5 06/10/19 21:00 07/10/19 20:59 Ascorbic Acid (Vitamin C) 500 mg DAILY GT 06/11/19 09:00 07/11/19 08:59 06/14/19 08:22 Atorvastatin Calcium (Lipitor) 40 mg BEDTIME GT 06/10/19 21:00 09/08/19 20:59 06/14/19 20:06 Dextrose (Dextrose 50%) 25 ml Q30M PRN IV Hypoglycemia 06/10/19 21:00 09/08/19 20:59 Dextrose (Dextrose 50%) 50 ml Q30M PRN IV Hypoglycemia 06/10/19 21:00 09/08/19 20:59 Epoetin Andreas (Epoetin Andreas-EPBX(NON ESRD)) 10,000 unit WED-WED-WED SUBQ 06/12/19 21:00 09/10/19 20:59 06/14/19 21:42 Ferrous Sulfate (Feosol) 330 mg THREE TIMES A DAY NG 06/11/19 09:00 09/09/19 08:59 06/14/19 17:08 Furosemide (Lasix) 80 mg EVERY 12 HOURS IV 06/12/19 21:00 07/11/19 20:59 06/14/19 20:07 Heparin Sodium (Porcine) (Heparin 5000 units/ml) 5,000 units EVERY 12 HOURS SUBQ 06/10/19 21:00 07/25/19 20:59 06/14/19 20:08 Insulin Aspart (NovoLOG) Q6HR SUBQ 06/11/19 12:00 09/08/19 21:59 06/14/19 23:23 Levofloxacin (Levaquin) 250 mg DAILY ORAL 06/14/19 10:45 06/21/19 10:44 06/14/19 12:45 Metoprolol Tartrate (Lopressor) 100 mg Q12HR GT 06/10/19 09:00 09/08/19 08:59 06/14/19 20:06 Multivitamins (Multivitamins W/ Minerals 15ml Liquid) 15 ml DAILY GT 06/11/19 09:00 07/11/19 08:59 06/14/19 08:21 Pantoprazole (Protonix) 40 mg DAILY IVP 06/11/19 09:00 07/11/19 08:59 06/14/19 08:21 Potassium Chloride (K-Dur) 20 meq TWICE A DAY GT 06/11/19 09:00 09/09/19 08:59 06/14/19 17:08 Vitamin B Complex/ Vit C/Folic Acid (Nephrovite) 1 tab DAILY GT 06/11/19 09:00 07/11/19 08:59 06/14/19 08:22 Assessment/Plan Assessment/Plan Anasarca Pulmonary edema scrotal edema Uremia Chronic respiratory failure on Ventilator Hypertension Diabetes Previous pneumonia Subdural hematoma Bedbound Tracheostomy dependent leukocytosis possible sepsis severe PCM anemia PLAN vent management renal and ID noted antibiotics reviewed cultures noted monitor urine output and labs feeds as tolerated protein and supplement follow up closely and monitor remains ill and critical impression, plan, and exam edited and reviewed in detail care discussed with Kain Tovar MD June 15, 2019 09:07
[2019-06-15] MEDS: Ascorbic Acid 500mg tab GT SCH (09:22)
[2019-06-15] MEDS: Metoprolol Tartrate 100mg tab GT SCH ×2 (09:23→21:04)
[2019-06-15] MEDS: Multivitamins W/Minerals 15 ML UDC GT SCH (09:23)
[2019-06-15] MEDS: Ferrous Sulfate 300 MG/5 ML UDC NG SCH ×3 (09:23→17:17)
[2019-06-15] MEDS: Nephrovite tab (Rena-Vite) GT SCH (09:23)
[2019-06-15] MEDS: Pantoprazole Inj IVP SCH (09:23)
[2019-06-15] MEDS: Heparin 5000 units/ml inj SUBQ SCH ×2 (09:25→21:03)
--- NOTE | 2019-06-15 10:12 | Infectious Diseases Prog Note ---
Assessment/Plan Assessment/Plan A 1. pneumonia with streptococcus, pseudomonas, stenotrophomonas COVID19 test negative 5,3,20 2. respiratory failure 3. leucocytosis improving 4. diabetes mellitus 5. hypertension 6. renal failure 7. SDH 8. + blood cultures with coag neg staph likely contaminated 9. QT prolongation P 1. Continue Levaquin Subjective ROS Limited/Unobtainable: Yes Constitutional: Denies: fever Allergies: Coded Allergies: No Known Allergies (Unverified , 06/10/19) Objective Vital Signs Last 24 Hour Vital Signs Date Time Temp Pulse Resp B/P (MAP) Pulse Ox O2 Delivery O2 Flow Rate FiO2 06/15/19 09:30 100 06/15/19 09:23 67 152/57 06/15/19 08:46 67 16 35 06/15/19 08:00 98.2 70 20 152/57 (88) 100 06/15/19 08:00 35 06/15/19 08:00 Mechanical Ventilator 06/15/19 07:23 68 17 35 06/15/19 05:10 62 18 35 06/15/19 04:00 98.4 69 20 160/79 (106) 100 06/15/19 04:00 35 06/15/19 04:00 Mechanical Ventilator 06/15/19 03:34 69 06/15/19 03:30 63 20 35 06/15/19 01:28 65 17 35 06/15/19 00:00 98.0 65 20 145/74 (97) 100 06/15/19 00:00 Mechanical Ventilator 06/14/19 23:30 64 18 35 06/14/19 23:29 64 06/14/19 21:30 60 21 35 06/14/19 20:06 71 149/80 06/14/19 20:00 98.2 71 20 149/80 (103) 100 06/14/19 20:00 68 06/14/19 20:00 35 06/14/19 20:00 Mechanical Ventilator 06/14/19 19:30 61 20 35 06/14/19 17:26 68 23 35 06/14/19 16:00 67 06/14/19 16:00 35 06/14/19 16:00 Mechanical Ventilator 06/14/19 16:00 98.1 67 20 146/82 (103) 100 06/14/19 15:57 69 21 35 06/14/19 13:22 60 21 35 06/14/19 12:00 35 06/14/19 12:00 97.7 63 20 120/67 (84) 100 06/14/19 12:00 Mechanical Ventilator 06/14/19 12:00 115 06/14/19 11:22 64 19 35 06/14/19 10:13 62 20 35 06/14/19 10:12 100 Height (Feet): 5 Height (Inches): 4.00 Weight (Pounds): 162 General Appearance: no acute distress HEENT: status post trach Respiratory/Chest: lungs clear, other - on ventilator Cardiovascular: normal rate Abdomen: soft, non tender, other - GT feeding Extremities: other - mild edema Neurologic/Psychiatric: unresponsiveness, aphasia Laboratory Tests Test 06/15/19 05:20 Sodium Level 146 MMOL/L (136-145) H Potassium Level 3.5 MMOL/L (3.5-5.1) Chloride Level 106 MMOL/L (98-107) Carbon Dioxide Level 29 MMOL/L (21-32) Anion Gap 11 mmol/L (5-15) Blood Urea Nitrogen 104 mg/dL (7-18) H Creatinine 2.3 MG/DL (0.55-1.30) H Estimat Glomerular Filtration Rate 33.6 mL/min (>60) Glucose Level 98 MG/DL (74-106) Calcium Level 9.2 MG/DL (8.5-10.1) Current Medications Medications (Trade) Dose Ordered Sig/Leonel Route PRN Reason Start Time Stop Time Status Last Admin Dose Admin Acetaminophen (Tylenol) 650 mg Q4H PRN NG Temp >100.5 06/10/19 21:00 07/10/19 20:59 Ascorbic Acid (Vitamin C) 500 mg DAILY GT 06/11/19 09:00 07/11/19 08:59 06/15/19 09:22 Atorvastatin Calcium (Lipitor) 40 mg BEDTIME GT 06/10/19 21:00 09/08/19 20:59 06/14/19 20:06 Dextrose (Dextrose 50%) 25 ml Q30M PRN IV Hypoglycemia 06/10/19 21:00 09/08/19 20:59 Dextrose (Dextrose 50%) 50 ml Q30M PRN IV Hypoglycemia 06/10/19 21:00 09/08/19 20:59 Epoetin Andreas (Epoetin Andreas-EPBX(NON ESRD)) 10,000 unit WED-WED-WED SUBQ 06/12/19 21:00 09/10/19 20:59 06/14/19 21:42 Ferrous Sulfate (Feosol) 330 mg THREE TIMES A DAY NG 06/11/19 09:00 09/09/19 08:59 06/15/19 09:23 Furosemide (Lasix) 80 mg EVERY 12 HOURS IV 06/12/19 21:00 07/11/19 20:59 06/15/19 09:23 Heparin Sodium (Porcine) (Heparin 5000 units/ml) 5,000 units EVERY 12 HOURS SUBQ 06/10/19 21:00 07/25/19 20:59 06/15/19 09:25 Insulin Aspart (NovoLOG) Q6HR SUBQ 06/11/19 12:00 09/08/19 21:59 06/14/19 23:23 Levofloxacin (Levaquin) 250 mg DAILY ORAL 06/14/19 10:45 06/21/19 10:44 06/15/19 09:22 Metoprolol Tartrate (Lopressor) 100 mg Q12HR GT 06/10/19 09:00 09/08/19 08:59 06/15/19 09:23 Multivitamins (Multivitamins W/ Minerals 15ml Liquid) 15 ml DAILY GT 06/11/19 09:00 07/11/19 08:59 06/15/19 09:23 Pantoprazole (Protonix) 40 mg DAILY IVP 06/11/19 09:00 07/11/19 08:59 06/15/19 09:23 Potassium Chloride (K-Dur) 20 meq TWICE A DAY GT 06/11/19 09:00 09/09/19 08:59 06/15/19 09:23 Vitamin B Complex/ Vit C/Folic Acid (Nephrovite) 1 tab DAILY GT 06/11/19 09:00 07/11/19 08:59 06/15/19 09:23 Real De Leon MD June 15, 2019 10:12
[2019-06-15 12:00] VITALS: BP 150/64
--- NOTE | 2019-06-15 12:35 | Nephrology Progress Note ---
Assessment/Plan Problem List: (1) Hypokalemia (2) CKD (chronic kidney disease) stage 5, GFR less than 15 ml/min (3) Anasarca (4) Pulmonary edema (5) Chronic respiratory failure (6) Uremia Plan continue lasix but change to gt, , kcl gfr 7, avoid nephrotoxins Subjective ROS Limited/Unobtainable: Yes Objective Objective Last 24 Hour Vital Signs Date Time Temp Pulse Resp B/P (MAP) Pulse Ox O2 Delivery O2 Flow Rate FiO2 06/15/19 12:00 99.3 65 20 150/64 (92) 100 06/15/19 10:38 65 18 35 06/15/19 09:30 100 06/15/19 09:23 67 152/57 06/15/19 08:46 67 16 35 06/15/19 08:00 64 06/15/19 08:00 98.2 70 20 152/57 (88) 100 06/15/19 08:00 35 06/15/19 08:00 Mechanical Ventilator 06/15/19 07:23 68 17 35 06/15/19 05:10 62 18 35 06/15/19 04:00 98.4 69 20 160/79 (106) 100 06/15/19 04:00 35 06/15/19 04:00 Mechanical Ventilator 06/15/19 03:34 69 06/15/19 03:30 63 20 35 06/15/19 01:28 65 17 35 06/15/19 00:00 98.0 65 20 145/74 (97) 100 06/15/19 00:00 Mechanical Ventilator 06/14/19 23:30 64 18 35 06/14/19 23:29 64 06/14/19 21:30 60 21 35 06/14/19 20:06 71 149/80 06/14/19 20:00 98.2 71 20 149/80 (103) 100 06/14/19 20:00 68 06/14/19 20:00 35 06/14/19 20:00 Mechanical Ventilator 06/14/19 19:30 61 20 35 06/14/19 17:26 68 23 35 06/14/19 16:00 67 06/14/19 16:00 35 06/14/19 16:00 Mechanical Ventilator 06/14/19 16:00 98.1 67 20 146/82 (103) 100 06/14/19 15:57 69 21 35 06/14/19 13:22 60 21 35 Intake and Output 06/14/19 06/15/19 19:00 07:00 Intake Total 945 ml 540 ml Output Total 2000 ml 2400 ml Balance -1055 ml -1860 ml Intake Free Water 450 ml Tube Feeding 495 ml 540 ml Output Urine Total 2000 ml 2400 ml # Bowel Movements 4 4 Laboratory Tests 06/15/19 05:20: Sodium Level 146H, Potassium Level 3.5, Chloride Level 106, Carbon Dioxide Level 29, Anion Gap 11, Blood Urea Nitrogen 104H, Creatinine 2.3H, Estimat Glomerular Filtration Rate 33.6, Glucose Level 98, Calcium Level 9.2 Height (Feet): 5 Height (Inches): 4.00 Weight (Pounds): 162 General Appearance: lethargic Cardiovascular: normal rate, regular rhythm Respiratory/Chest: crackles/rales Abdomen: non tender Extremities: no edema Neurologic: unresponsive Carmelo Frank MD June 15, 2019 12:35
--- NOTE | 2019-06-15 14:11 | NUR ---
CASE MANAGEMENT: REVIEW 06/15/2019 SI:PNA. CHRONIC PULMONARY EDEMA VS: T 99.3 HR 65 RR 20 B/P 150/64 SATS 100% ON MECH VENT IO2 35 LABS: NA 146 BUN 104 CR 2.3 IS:LASIX GT Q12H KDUR GT BID LIPITOR GT QHS LOPRESSOR GT Q12H LEVAQUIN PO QD INSULIN ASPART SUBQ Q6H SDU DCP: [facility]
--- NOTE | 2019-06-15 15:58 | NUR ---
*-* INSURANCE *-* ALL AVAILABLE CLINICALS HAVE BEEN FAXED TO: [facility] tracking# [id number] ; Jessy ph# [phone] ext [phone] fax# [phone]
[2019-06-15 16:00] VITALS: BP 149/78
--- NOTE | 2019-06-15 18:08 | Surgery Progress Note ---
Surgery Progress Note Subjective Additional Comments comfortable appearing no n/ v Objective Last 24 Hour Vital Signs Date Time Temp Pulse Resp B/P (MAP) Pulse Ox O2 Delivery O2 Flow Rate FiO2 06/15/19 17:28 68 18 35 06/15/19 17:28 68 18 100 Mechanical Ventilator 35 06/15/19 16:00 Mechanical Ventilator 06/15/19 16:00 99.0 69 20 149/78 (101) 100 06/15/19 16:00 35 06/15/19 16:00 65 06/15/19 14:52 70 16 35 06/15/19 13:16 66 17 35 06/15/19 12:00 99.3 65 20 150/64 (92) 100 06/15/19 12:00 35 06/15/19 12:00 64 06/15/19 12:00 Mechanical Ventilator 06/15/19 10:38 65 18 35 06/15/19 09:30 100 06/15/19 09:23 67 152/57 06/15/19 08:46 67 16 35 06/15/19 08:00 64 06/15/19 08:00 98.2 70 20 152/57 (88) 100 06/15/19 08:00 35 06/15/19 08:00 Mechanical Ventilator 06/15/19 07:23 68 17 35 06/15/19 05:10 62 18 35 06/15/19 04:00 98.4 69 20 160/79 (106) 100 06/15/19 04:00 35 06/15/19 04:00 Mechanical Ventilator 06/15/19 03:34 69 06/15/19 03:30 63 20 35 06/15/19 01:28 65 17 35 06/15/19 00:00 98.0 65 20 145/74 (97) 100 06/15/19 00:00 Mechanical Ventilator 06/14/19 23:30 64 18 35 06/14/19 23:29 64 06/14/19 21:30 60 21 35 06/14/19 20:06 71 149/80 06/14/19 20:00 98.2 71 20 149/80 (103) 100 06/14/19 20:00 68 06/14/19 20:00 35 06/14/19 20:00 Mechanical Ventilator 06/14/19 19:30 61 20 35 I&O Intake and Output 06/14/19 06/15/19 19:00 07:00 Intake Total 945 ml 540 ml Output Total 2000 ml 2400 ml Balance -1055 ml -1860 ml Intake Free Water 450 ml Tube Feeding 495 ml 540 ml Output Urine Total 2000 ml 2400 ml # Bowel Movements 4 4 Dressing: other Wound: other Drains: other Cardiovascular: RSR Respiratory: decreased breath sounds Abdomen: soft, non-tender, present bowel sounds Extremities: no cyanosis Laboratory Tests Test 06/15/19 05:20 Sodium Level 146 MMOL/L (136-145) H Potassium Level 3.5 MMOL/L (3.5-5.1) Chloride Level 106 MMOL/L (98-107) Carbon Dioxide Level 29 MMOL/L (21-32) Anion Gap 11 mmol/L (5-15) Blood Urea Nitrogen 104 mg/dL (7-18) H Creatinine 2.3 MG/DL (0.55-1.30) H Estimat Glomerular Filtration Rate 33.6 mL/min (>60) Glucose Level 98 MG/DL (74-106) Calcium Level 9.2 MG/DL (8.5-10.1) Plan Problems: (1) Decubitus skin ulcer Assessment & Plan: Pt presented on admission with generalized edema,grossly enlarged scrotum, contractures and multiple pressure injuries. Full thickness stage 4 pressure injury L Sacrum (L)1.6cm x (W)1.8cm x (D)0.3cm. Base of wound has 40% slough,60% beefy red. Borders are macerated. Small amt sanguineus exudate noted. Wound noted to be within field of previous wound. Periwound, skin tone is darker without induration or fluctuance. Scattered areas of hyperpigmentation from previous wounds noted to R and L Buttocks. Grossly enlarged and erythematous scrotum . Clusters of linear partial thickness ulcers noted at base of scrotum.moderate amt of serous exudate noted .Shaft of penis is grossly edematous. DTPI noted to medial L heel. Base of wound is maroon and fluctuant. (L)4cm x (W) 4.5cm. R heel is boggy with non-blanching erythema. Tx.Plan: Cleanse Sacral wound with Saline. Apply TheraHoney.Apply Moisture Barrier Paste periwound. Cover with Optifoam drsg. Change every 3 days and prn. Apply Moisture Barrier Paste to Bilat groin and scrotum with each Incontinence care. Cover each trochanter/Hips areas with Optifoam drsgs. Change every 7 days and prn. Apply Cavilon Skin Barrier to both heels. Cover each heel with Optifoam drsg. Change every 7 days and prn. Reposition at least every 2hours or as tolerated. Off-load heels with Pillow. APM/BECCA Mattress overlay. (2) Malnutrition Assessment & Plan: DAILY ESTIMATED NEEDS: Needs based on Renal, critical care, wound/ 62kg 22-28 kcals/kg 9355-0869 total kcals 1-1.3 (increase w/ renal improvement) g protein/kg 62-81 g total protein 20-25 mL/kg 7228-5842 total fluid mLs NUTRITION DIAGNOSIS: * Swallowing difficulty R/T respiratory failure, dysphagia as evidenced by trach/vent dep, PEG dep * Increased kcal/prot needs R/T wound healing as evidenced by admitted w/ lt buttock open wound, pending eval. CURRENT TF:Nepro @ 45ml/hr x 24 hrs ENTERAL NUTRITION RECOMMENDATIONS: Nepro @ 40ml/hr x 24 hrs to provide 960ml, 1728kcal, 78g prot, 698ml free water * LOWER goal rate to 40ml/hr x 24 hrs : meets 100% est kcal/prot needs * HOB over 30 degrees/ water flush per MD ---- W/ consistently low K level and stable renal fxn, rec to change TF to Glucerna 1.5 @ 45ml/hr x 24 hrs to provide 1080ml, 1620kcal, 89g prot, 820ml free water ADDITIONAL RECOMMENDATIONS: * Per SNF: HT=64" ZU=990 lbs (Vs EMR wt of 150lbs) -> obtain re-calibrated bedscale wt * Monitor lytes and renal fxn, need to continue Nepro * Wound healing: Continue Vit C, add Garo BID via PEG * Monitor BGs, need for additional hypoglycemics. (3) Chronic respiratory failure Assessment & Plan: FINDINGS: Hardware: Tracheostomy tube terminates in the region of the upper/mid thoracic trachea. Lungs/pleura: Bilateral pleural effusions. Opacities throughout right greater than left lungs, concerning for pulmonary edema and/or infectious/inflammatory process. Heart/mediastinum: Mild enlargement of the cardiac silhouette. Atherosclerotic calcifications of the aorta. Left-sided pacemaker. Soft tissues: Unremarkable. Bones: No acute fracture. Degenerative changes of the spine Upper abdomen: Normal. IMPRESSION: Bilateral pleural effusions. Opacities throughout right greater than left lungs, concerning for pulmonary edema and/or infectious/inflammatory process. Trach Care (4) Anasarca (5) Leukocytosis Assessment & Plan: Patient identified to have significant leukocytosis, anemia , abnormal labs. Albumin low. Renal insufficiency. Anasarca. Microbiology noted Sputum sample resulted Antibiotics per infectious disease Wound evaluated likely etiology of patient's infectious source Will monitor closely and provide assistance thank you for let me participate in patient's care Jonathan Urias June 15, 2019 18:08
--- NOTE | 2019-06-15 19:30 | NUR ---
NURSE NOTES: Report received from TAMICA Espino. Observed pt lying in the bed, obtunded. Tolerating current vent setting, AC 16/450/35%/5, sat at 100%. V-paced on electronic device monitor. GT intact, running Nepro at 45cc/hr, no residual noted, flushed 50cc/hr. IV on L H 20G, SL, asymptomatic. F/c intact, draining yellow urine. Bed in the lowest position. Side rails up x3. Will continue to monitor.
[2019-06-15 20:00] VITALS: BP 155/80
[2019-06-15] MEDS: Atorvastatin 20mg tab GT SCH (21:04)
[2019-06-15] MEDS: Furosemide 80mg tab GT SCH (21:04)
[2019-06-16] VITALS: BP 153/71
--- NOTE | 2019-06-16 02:24 | NUR ---
NURSE NOTES: No acute distress noted. Oral care given. Reposition done. Tolerating well with current vent setting. Will continue to monitor.
[2019-06-16 04:00] VITALS: BP 158/72
[2019-06-16] MEDS: NovoLOG Insulin Flexpen SUBQ SCH ×4 (05:36→23:08)
[2019-06-16 05:58] LABS: ANION GAP 9 mmol/L (5-15); BLOOD UREA NITROGEN 100 mg/dL (7-18); CALCIUM 9.2 MG/DL (8.5-10.1); CARBON DIOXIDE 31 MMOL/L (21-32); CHLORIDE 106 MMOL/L (98-107); CREATININE 2.3 MG/DL (0.55-1.30); POTASSIUM 3.6 MMOL/L (3.5-5.1); SODIUM 146 MMOL/L (136-145)
--- NOTE | 2019-06-16 07:29 | NUR ---
NURSE NOTES: Report received from TAMICA Hi. Pt in bed resting, obtunded. Tolerating current vent setting, AC 16/450/35%/5, sat at 100%. V-paced on cardiac catheterization technologist. GT intact, running Nepro at 45cc/hr, tolerating well with current feeding. IV on LH 20G, SL, asymptomatic. F/c intact, draining yellow urine. Bed in the lowest position. Side rails up x3. Will continue to monitor.
--- NOTE | 2019-06-16 07:29 | NUR ---
HAND-OFF: Report given to TAMICA Madsen. No acute distress noted at this time.
[2019-06-16 08:00] VITALS: BP 150/73
--- NOTE | 2019-06-16 08:04 | NUR ---
CASE MANAGEMENT: REVIEW 06/16/2019 SI:PNA. CHRONIC PULMONARY EDEMA VS: T 98.6 HR 73 RR 22 B/P 150/73 SATS 98% ON MECH VENT FIO2 35 LABS: 146 BUN 100 CR 2.3 IS:LASIX GT Q12H KDUR GT BID LIPITOR GT QHS LOPRESSOR GT Q12H LEVAQUIN PO QD INSULIN ASPART SUBQ Q6H SDU DCP: [facility]
[2019-06-16] MEDS: Multivitamins W/Minerals 15 ML UDC GT SCH (08:13)
[2019-06-16] MEDS: Ferrous Sulfate 300 MG/5 ML UDC NG SCH ×3 (08:13→17:17)
[2019-06-16] MEDS: Furosemide 80mg tab GT SCH ×2 (08:14→22:52)
[2019-06-16] MEDS: Pantoprazole Inj IVP SCH (08:14)
[2019-06-16] MEDS: Nephrovite tab (Rena-Vite) GT SCH (08:14)
[2019-06-16] MEDS: Metoprolol Tartrate 100mg tab GT SCH ×2 (08:14→22:52)
[2019-06-16] MEDS: Ascorbic Acid 500mg tab GT SCH (08:15)
[2019-06-16] MEDS: Heparin 5000 units/ml inj SUBQ SCH ×2 (08:16→22:56)
--- NOTE | 2019-06-16 08:37 | NUR ---
RESPIRATORY NOTE: attempting to wean pt on CPAP PS10 fio2 35%. no signs of resp distress at this time. RN notified and will cont to monitor.
--- NOTE | 2019-06-16 10:36 | Infectious Diseases Prog Note ---
Assessment/Plan Assessment/Plan antibiotics : levoquin A 1. pneumonia with streptococcus, pseudomonas, stenotrophomonas COVID 19 test negative ,,20 2. respiratory failure 3. leucocytosis improving 4. diabetes mellitus 5. hypertension 6. renal failure 7. SDH 8. + blood cultures with coag neg staph likely contaminated 9. QT prolongation P 1. continue levoquin 7 more days 2. will follow up cultures Subjective ROS Limited/Unobtainable: Yes Allergies: Coded Allergies: No Known Allergies (Unverified , 06/10/19) Objective Vital Signs Last 24 Hour Vital Signs Date Time Temp Pulse Resp B/P (MAP) Pulse Ox O2 Delivery O2 Flow Rate FiO2 06/16/19 08:39 80 21 35 35 06/16/19 08:36 100 06/16/19 08:14 73 150/73 06/16/19 08:00 35 06/16/19 08:00 Mechanical Ventilator 06/16/19 08:00 98.6 73 22 150/73 (98) 98 06/16/19 07:45 74 06/16/19 07:03 74 19 35 06/16/19 05:23 72 19 35 06/16/19 04:00 71 06/16/19 04:00 Mechanical Ventilator 06/16/19 04:00 97.9 70 22 158/72 (100) 99 06/16/19 04:00 35 06/16/19 03:15 71 18 35 06/16/19 00:40 66 17 35 06/16/19 00:00 Mechanical Ventilator 06/16/19 00:00 35 06/16/19 00:00 66 06/16/19 00:00 97.7 67 17 153/71 (98) 100 06/15/19 23:10 64 18 35 06/15/19 21:04 71 155/80 06/15/19 21:01 71 16 35 06/15/19 20:00 Mechanical Ventilator 06/15/19 20:00 35 06/15/19 20:00 98.3 73 18 155/80 (105) 100 06/15/19 20:00 73 06/15/19 19:00 70 20 35 06/15/19 17:28 68 18 35 06/15/19 17:28 68 18 100 Mechanical Ventilator 35 06/15/19 16:00 Mechanical Ventilator 06/15/19 16:00 99.0 69 20 149/78 (101) 100 06/15/19 16:00 35 06/15/19 16:00 65 06/15/19 14:52 70 16 35 06/15/19 13:16 66 17 35 06/15/19 12:00 99.3 65 20 150/64 (92) 100 06/15/19 12:00 35 06/15/19 12:00 64 06/15/19 12:00 Mechanical Ventilator 06/15/19 10:38 65 18 35 Height (Feet): 5 Height (Inches): 4.00 Weight (Pounds): 162 HEENT: status post trach Respiratory/Chest: lungs clear Cardiovascular: normal rate, regular rhythm, no gallop/murmur Abdomen: soft, non tender, other - GT Extremities: no edema Laboratory Tests Test 06/16/19 03:32 Sodium Level 146 MMOL/L (136-145) H Potassium Level 3.6 MMOL/L (3.5-5.1) Chloride Level 106 MMOL/L (98-107) Carbon Dioxide Level 31 MMOL/L (21-32) Anion Gap 9 mmol/L (5-15) Blood Urea Nitrogen 100 mg/dL (7-18) H Creatinine 2.3 MG/DL (0.55-1.30) H Estimat Glomerular Filtration Rate 33.6 mL/min (>60) Glucose Level 172 MG/DL (74-106) H Calcium Level 9.2 MG/DL (8.5-10.1) Current Medications Medications (Trade) Dose Ordered Sig/Leonel Route PRN Reason Start Time Stop Time Status Last Admin Dose Admin Acetaminophen (Tylenol) 650 mg Q4H PRN NG Temp >100.5 06/10/19 21:00 07/10/19 20:59 Ascorbic Acid (Vitamin C) 500 mg DAILY GT 06/11/19 09:00 07/11/19 08:59 06/16/19 08:15 Atorvastatin Calcium (Lipitor) 40 mg BEDTIME GT 06/10/19 21:00 09/08/19 20:59 06/15/19 21:04 Dextrose (Dextrose 50%) 25 ml Q30M PRN IV Hypoglycemia 06/10/19 21:00 09/08/19 20:59 Dextrose (Dextrose 50%) 50 ml Q30M PRN IV Hypoglycemia 06/10/19 21:00 09/08/19 20:59 Epoetin Andreas (Epoetin Andreas-EPBX(NON ESRD)) 10,000 unit WED-WED-WED SUBQ 06/12/19 21:00 09/10/19 20:59 06/14/19 21:42 Ferrous Sulfate (Feosol) 330 mg THREE TIMES A DAY NG 06/11/19 09:00 09/09/19 08:59 06/16/19 08:13 Furosemide (Lasix) 80 mg EVERY 12 HOURS GT 06/15/19 21:00 07/15/19 20:59 06/16/19 08:14 Heparin Sodium (Porcine) (Heparin 5000 units/ml) 5,000 units EVERY 12 HOURS SUBQ 06/10/19 21:00 07/25/19 20:59 06/16/19 08:16 Insulin Aspart (NovoLOG) Q6HR SUBQ 06/11/19 12:00 09/08/19 21:59 06/16/19 05:36 Levofloxacin (Levaquin) 250 mg DAILY ORAL 06/14/19 10:45 06/21/19 10:44 06/16/19 08:14 Metoprolol Tartrate (Lopressor) 100 mg Q12HR GT 06/10/19 09:00 09/08/19 08:59 06/16/19 08:14 Multivitamins (Multivitamins W/ Minerals 15ml Liquid) 15 ml DAILY GT 06/11/19 09:00 07/11/19 08:59 06/16/19 08:13 Pantoprazole (Protonix) 40 mg DAILY IVP 06/11/19 09:00 07/11/19 08:59 06/16/19 08:14 Potassium Chloride (K-Dur) 20 meq TWICE A DAY GT 06/11/19 09:00 09/09/19 08:59 06/16/19 08:14 Vitamin B Complex/ Vit C/Folic Acid (Nephrovite) 1 tab DAILY GT 06/11/19 09:00 07/11/19 08:59 06/16/19 08:14 Farnaz Lyle MD June 16, 2019 10:36
--- NOTE | 2019-06-16 11:01 | NUR ---
INSURANCE PROGRESS NOTES AND REVIEW FAXED TO [facility] tracking# [id number] KELSEY Jiménez ph# [phone] ext [phone] fax# [phone]
--- NOTE | 2019-06-16 11:50 | Nephrology Progress Note ---
Assessment/Plan Problem List: (1) Hypokalemia (2) CKD (chronic kidney disease) stage 5, GFR less than 15 ml/min (3) Anasarca (4) Pulmonary edema (5) Chronic respiratory failure (6) Uremia Plan continue lasix but change to gt, , kcl gfr 7, avoid nephrotoxins, has had good diuresis Subjective ROS Limited/Unobtainable: Yes Objective Objective Last 24 Hour Vital Signs Date Time Temp Pulse Resp B/P (MAP) Pulse Ox O2 Delivery O2 Flow Rate FiO2 06/16/19 11:22 69 23 35 06/16/19 08:39 80 21 35 35 06/16/19 08:36 100 06/16/19 08:14 73 150/73 06/16/19 08:00 35 06/16/19 08:00 Mechanical Ventilator 06/16/19 08:00 98.6 73 22 150/73 (98) 98 06/16/19 07:45 74 06/16/19 07:03 74 19 35 06/16/19 05:23 72 19 35 06/16/19 04:00 71 06/16/19 04:00 Mechanical Ventilator 06/16/19 04:00 97.9 70 22 158/72 (100) 99 06/16/19 04:00 35 06/16/19 03:15 71 18 35 06/16/19 00:40 66 17 35 06/16/19 00:00 Mechanical Ventilator 06/16/19 00:00 35 06/16/19 00:00 66 06/16/19 00:00 97.7 67 17 153/71 (98) 100 06/15/19 23:10 64 18 35 06/15/19 21:04 71 155/80 06/15/19 21:01 71 16 35 06/15/19 20:00 Mechanical Ventilator 06/15/19 20:00 35 06/15/19 20:00 98.3 73 18 155/80 (105) 100 06/15/19 20:00 73 06/15/19 19:00 70 20 35 06/15/19 17:28 68 18 35 06/15/19 17:28 68 18 100 Mechanical Ventilator 35 06/15/19 16:00 Mechanical Ventilator 06/15/19 16:00 99.0 69 20 149/78 (101) 100 06/15/19 16:00 35 06/15/19 16:00 65 06/15/19 14:52 70 16 35 06/15/19 13:16 66 17 35 06/15/19 12:00 99.3 65 20 150/64 (92) 100 06/15/19 12:00 35 06/15/19 12:00 64 06/15/19 12:00 Mechanical Ventilator Intake and Output 06/15/19 06/16/19 19:00 07:00 Intake Total 940 ml 745 ml Output Total 2000 ml 2000 ml Balance -1060 ml -1255 ml Intake Free Water 400 ml 250 ml Tube Feeding 540 ml 495 ml Output Urine Total 2000 ml 2000 ml # Bowel Movements 4 2 Laboratory Tests 06/16/19 03:32: Sodium Level 146H, Potassium Level 3.6, Chloride Level 106, Carbon Dioxide Level 31, Anion Gap 9, Blood Urea Nitrogen 100H, Creatinine 2.3H, Estimat Glomerular Filtration Rate 33.6, Glucose Level 172H, Calcium Level 9.2 Height (Feet): 5 Height (Inches): 4.00 Weight (Pounds): 162 General Appearance: lethargic Neck: other - trach Cardiovascular: regular rhythm Respiratory/Chest: crackles/rales Abdomen: non tender Extremities: no edema Neurologic: disoriented Carmelo Frank MD June 16, 2019 11:50
[2019-06-16 12:00] VITALS: BP 158/66
--- NOTE | 2019-06-16 13:53 | Surgery Progress Note ---
Surgery Progress Note Subjective Additional Comments leukocytosis improved esr/crp noted elevated imaging reviewed exam stable Objective Last 24 Hour Vital Signs Date Time Temp Pulse Resp B/P (MAP) Pulse Ox O2 Delivery O2 Flow Rate FiO2 06/16/19 12:45 69 18 35 06/16/19 12:00 99.0 71 20 158/66 (96) 100 06/16/19 12:00 Mechanical Ventilator 06/16/19 12:00 35 06/16/19 12:00 71 06/16/19 11:22 69 23 35 06/16/19 08:39 80 21 35 35 06/16/19 08:36 100 06/16/19 08:14 73 150/73 06/16/19 08:00 35 06/16/19 08:00 Mechanical Ventilator 06/16/19 08:00 98.6 73 22 150/73 (98) 98 06/16/19 07:45 74 06/16/19 07:03 74 19 35 06/16/19 05:23 72 19 35 06/16/19 04:00 71 06/16/19 04:00 Mechanical Ventilator 06/16/19 04:00 97.9 70 22 158/72 (100) 99 06/16/19 04:00 35 06/16/19 03:15 71 18 35 06/16/19 00:40 66 17 35 06/16/19 00:00 Mechanical Ventilator 06/16/19 00:00 35 06/16/19 00:00 66 06/16/19 00:00 97.7 67 17 153/71 (98) 100 06/15/19 23:10 64 18 35 06/15/19 21:04 71 155/80 06/15/19 21:01 71 16 35 06/15/19 20:00 Mechanical Ventilator 06/15/19 20:00 35 06/15/19 20:00 98.3 73 18 155/80 (105) 100 06/15/19 20:00 73 06/15/19 19:00 70 20 35 06/15/19 17:28 68 18 35 06/15/19 17:28 68 18 100 Mechanical Ventilator 35 06/15/19 16:00 Mechanical Ventilator 06/15/19 16:00 99.0 69 20 149/78 (101) 100 06/15/19 16:00 35 06/15/19 16:00 65 06/15/19 14:52 70 16 35 I&O Intake and Output 06/15/19 06/16/19 19:00 07:00 Intake Total 940 ml 745 ml Output Total 2000 ml 2000 ml Balance -1060 ml -1255 ml Intake Free Water 400 ml 250 ml Tube Feeding 540 ml 495 ml Output Urine Total 2000 ml 2000 ml # Bowel Movements 4 2 Dressing: other Wound: other Drains: other Cardiovascular: RSR Respiratory: decreased breath sounds Abdomen: soft, non-tender, present bowel sounds Extremities: no edema, no cyanosis, other Laboratory Tests Test 06/16/19 03:32 Sodium Level 146 MMOL/L (136-145) H Potassium Level 3.6 MMOL/L (3.5-5.1) Chloride Level 106 MMOL/L (98-107) Carbon Dioxide Level 31 MMOL/L (21-32) Anion Gap 9 mmol/L (5-15) Blood Urea Nitrogen 100 mg/dL (7-18) H Creatinine 2.3 MG/DL (0.55-1.30) H Estimat Glomerular Filtration Rate 33.6 mL/min (>60) Glucose Level 172 MG/DL (74-106) H Calcium Level 9.2 MG/DL (8.5-10.1) Plan Problems: (1) Decubitus skin ulcer Assessment & Plan: Pt presented on admission with generalized edema,grossly enlarged scrotum, contractures and multiple pressure injuries. Full thickness stage 4 pressure injury L Sacrum (L)1.6cm x (W)1.8cm x (D)0.3cm. Base of wound has 40% slough,60% beefy red. Borders are macerated. Small amt sanguineus exudate noted. Wound noted to be within field of previous wound. Periwound, skin tone is darker without induration or fluctuance. Scattered areas of hyperpigmentation from previous wounds noted to R and L Buttocks. Grossly enlarged and erythematous scrotum . Clusters of linear partial thickness ulcers noted at base of scrotum.moderate amt of serous exudate noted .Shaft of penis is grossly edematous. DTPI noted to medial L heel. Base of wound is maroon and fluctuant. (L)4cm x (W) 4.5cm. R heel is boggy with non-blanching erythema. Tx.Plan: Cleanse Sacral wound with Saline. Apply TheraHoney.Apply Moisture Barrier Paste periwound. Cover with Optifoam drsg. Change every 3 days and prn. Apply Moisture Barrier Paste to Bilat groin and scrotum with each Incontinence care. Cover each trochanter/Hips areas with Optifoam drsgs. Change every 7 days and prn. Apply Cavilon Skin Barrier to both heels. Cover each heel with Optifoam drsg. Change every 7 days and prn. Reposition at least every 2hours or as tolerated. Off-load heels with Pillow. APM/BECCA Mattress overlay. (2) Malnutrition Assessment & Plan: DAILY ESTIMATED NEEDS: Needs based on Renal, critical care, wound/ 62kg 22-28 kcals/kg 4010-3105 total kcals 1-1.3 (increase w/ renal improvement) g protein/kg 62-81 g total protein 20-25 mL/kg 7627-8048 total fluid mLs NUTRITION DIAGNOSIS: * Swallowing difficulty R/T respiratory failure, dysphagia as evidenced by trach/vent dep, PEG dep * Increased kcal/prot needs R/T wound healing as evidenced by admitted w/ lt buttock open wound, pending eval. CURRENT TF:Nepro @ 45ml/hr x 24 hrs ENTERAL NUTRITION RECOMMENDATIONS: Nepro @ 40ml/hr x 24 hrs to provide 960ml, 1728kcal, 78g prot, 698ml free water * LOWER goal rate to 40ml/hr x 24 hrs : meets 100% est kcal/prot needs * HOB over 30 degrees/ water flush per MD ---- W/ consistently low K level and stable renal fxn, rec to change TF to Glucerna 1.5 @ 45ml/hr x 24 hrs to provide 1080ml, 1620kcal, 89g prot, 820ml free water ADDITIONAL RECOMMENDATIONS: * Per SNF: HT=64" LN=152 lbs (Vs EMR wt of 150lbs) -> obtain re-calibrated bedscale wt * Monitor lytes and renal fxn, need to continue Nepro * Wound healing: Continue Vit C, add Garo BID via PEG * Monitor BGs, need for additional hypoglycemics. (3) Chronic respiratory failure Assessment & Plan: FINDINGS: Hardware: Tracheostomy tube terminates in the region of the upper/mid thoracic trachea. Lungs/pleura: Bilateral pleural effusions. Opacities throughout right greater than left lungs, concerning for pulmonary edema and/or infectious/inflammatory process. Heart/mediastinum: Mild enlargement of the cardiac silhouette. Atherosclerotic calcifications of the aorta. Left-sided pacemaker. Soft tissues: Unremarkable. Bones: No acute fracture. Degenerative changes of the spine Upper abdomen: Normal. IMPRESSION: Bilateral pleural effusions. Opacities throughout right greater than left lungs, concerning for pulmonary edema and/or infectious/inflammatory process. Trach Care (4) Anasarca (5) Leukocytosis Assessment & Plan: Patient identified to have significant leukocytosis, anemia , abnormal labs. Albumin low. Renal insufficiency. Anasarca. Microbiology noted Sputum sample resulted Antibiotics per infectious disease Wound evaluated likely etiology of patient's infectious source Will monitor closely and provide assistance thank you for let me participate in patient's care wbc improved Jonathan Urias June 16, 2019 13:53
--- NOTE | 2019-06-16 14:04 | NUR ---
*-* INSURANCE *-* ALL AVAILABLE CLINICALS HAVE BEEN FAXED TO: [facility] tracking# [id number] ; Jessy ph# [phone] ext [phone] fax# [phone]
[2019-06-16 16:00] VITALS: BP 157/65
--- NOTE | 2019-06-16 16:11 | Pulmonology Progress Note ---
Subjective ROS Limited/Unobtainable: Yes Constitutional: Denies: fever Allergies: Coded Allergies: No Known Allergies (Unverified , 06/10/19) Subjective reviewed care consultants noted having diarrhea poor renal function wbc noted Objective Last 24 Hour Vital Signs Date Time Temp Pulse Resp B/P (MAP) Pulse Ox O2 Delivery O2 Flow Rate FiO2 06/16/19 14:42 73 17 35 06/16/19 12:45 69 18 35 06/16/19 12:00 99.0 71 20 158/66 (96) 100 06/16/19 12:00 Mechanical Ventilator 06/16/19 12:00 35 06/16/19 12:00 71 06/16/19 11:22 69 23 35 06/16/19 08:39 80 21 35 35 06/16/19 08:36 100 06/16/19 08:14 73 150/73 06/16/19 08:00 35 06/16/19 08:00 Mechanical Ventilator 06/16/19 08:00 98.6 73 22 150/73 (98) 98 06/16/19 07:45 74 06/16/19 07:03 74 19 35 06/16/19 05:23 72 19 35 06/16/19 04:00 71 06/16/19 04:00 Mechanical Ventilator 06/16/19 04:00 97.9 70 22 158/72 (100) 99 06/16/19 04:00 35 06/16/19 03:15 71 18 35 06/16/19 00:40 66 17 35 06/16/19 00:00 Mechanical Ventilator 06/16/19 00:00 35 06/16/19 00:00 66 06/16/19 00:00 97.7 67 17 153/71 (98) 100 06/15/19 23:10 64 18 35 06/15/19 21:04 71 155/80 06/15/19 21:01 71 16 35 06/15/19 20:00 Mechanical Ventilator 06/15/19 20:00 35 06/15/19 20:00 98.3 73 18 155/80 (105) 100 06/15/19 20:00 73 06/15/19 19:00 70 20 35 06/15/19 17:28 68 18 35 06/15/19 17:28 68 18 100 Mechanical Ventilator 35 Intake and Output 06/15/19 06/16/19 19:00 07:00 Intake Total 940 ml 745 ml Output Total 2000 ml 2000 ml Balance -1060 ml -1255 ml Intake Free Water 400 ml 250 ml Tube Feeding 540 ml 495 ml Output Urine Total 2000 ml 2000 ml # Bowel Movements 4 2 Objective WDWN NAD trach and gt clear breath sounds bilaterally without rhonchi or wheeze [id number] without MRG NABS nontender no HSM no CC noted edema scrotal edema nonfocal reviewed and edited General Appearance: no acute distress HEENT: status post trach Abdomen: soft, non tender, other - GT Extremities: no edema Neurologic/Psychiatric: unresponsiveness, aphasia Laboratory Tests 06/16/19 03:32: Sodium Level 146H, Potassium Level 3.6, Chloride Level 106, Carbon Dioxide Level 31, Anion Gap 9, Blood Urea Nitrogen 100H, Creatinine 2.3H, Estimat Glomerular Filtration Rate 33.6, Glucose Level 172H, Calcium Level 9.2 Current Medications Medications (Trade) Dose Ordered Sig/Leonel Route PRN Reason Start Time Stop Time Status Last Admin Dose Admin Acetaminophen (Tylenol) 650 mg Q4H PRN NG Temp >100.5 06/10/19 21:00 07/10/19 20:59 Ascorbic Acid (Vitamin C) 500 mg DAILY GT 06/11/19 09:00 07/11/19 08:59 06/16/19 08:15 Atorvastatin Calcium (Lipitor) 40 mg BEDTIME GT 06/10/19 21:00 09/08/19 20:59 06/15/19 21:04 Dextrose (Dextrose 50%) 25 ml Q30M PRN IV Hypoglycemia 06/10/19 21:00 09/08/19 20:59 Dextrose (Dextrose 50%) 50 ml Q30M PRN IV Hypoglycemia 06/10/19 21:00 09/08/19 20:59 Epoetin Andreas (Epoetin Andreas-EPBX(NON ESRD)) 10,000 unit WED-WED-WED SUBQ 06/12/19 21:00 09/10/19 20:59 06/14/19 21:42 Ferrous Sulfate (Feosol) 330 mg THREE TIMES A DAY NG 06/11/19 09:00 09/09/19 08:59 06/16/19 12:23 Furosemide (Lasix) 80 mg EVERY 12 HOURS GT 06/15/19 21:00 07/15/19 20:59 06/16/19 08:14 Heparin Sodium (Porcine) (Heparin 5000 units/ml) 5,000 units EVERY 12 HOURS SUBQ 06/10/19 21:00 07/25/19 20:59 06/16/19 08:16 Insulin Aspart (NovoLOG) Q6HR SUBQ 06/11/19 12:00 09/08/19 21:59 06/16/19 12:24 Levofloxacin (Levaquin) 250 mg DAILY ORAL 06/14/19 10:45 06/21/19 10:44 06/16/19 08:14 Metoprolol Tartrate (Lopressor) 100 mg Q12HR GT 06/10/19 09:00 09/08/19 08:59 06/16/19 08:14 Multivitamins (Multivitamins W/ Minerals 15ml Liquid) 15 ml DAILY GT 06/11/19 09:00 07/11/19 08:59 06/16/19 08:13 Pantoprazole (Protonix) 40 mg DAILY IVP 06/11/19 09:00 07/11/19 08:59 06/16/19 08:14 Potassium Chloride (K-Dur) 20 meq TWICE A DAY GT 06/11/19 09:00 09/09/19 08:59 06/16/19 08:14 Vitamin B Complex/ Vit C/Folic Acid (Nephrovite) 1 tab DAILY GT 06/11/19 09:00 07/11/19 08:59 06/16/19 08:14 Assessment/Plan Assessment/Plan Anasarca Pulmonary edema scrotal edema Uremia Chronic respiratory failure on Ventilator Hypertension Diabetes Previous pneumonia Subdural hematoma Bedbound Tracheostomy dependent leukocytosis possible sepsis severe PCM anemia PLAN vent management renal and ID noted antibiotics reviewed cultures noted monitor urine output and labs feeds as tolerated protein and supplement follow up closely and monitor remains ill and critical rectal tube and check Cdif impression, plan, and exam edited and reviewed in detail care discussed with Kain Tovar MD June 16, 2019 16:11
--- NOTE | 2019-06-16 19:04 | NUR ---
HAND-OFF: Report given to Kolton DAVEY. Pt remains stable. Addendum: 06/16/19 at 1906 by Britney Marshall RN HAND-OFF: Report given to Srinivas DAVEY. Pt remains stable.
--- NOTE | 2019-06-16 19:15 | NUR ---
NURSE NOTES: Received report from Cale Marshall RN. Patient is resting in bed w/eyes open. In no apparent distress. Respirations even and unlabored. Trach to vent w/settings as ordered. Nonverbal. Tolerating G-tube feeding well w/o residual noted. V-paced on emergency department aide. Avalos draining well of yellow clear urine. Bed is in lowest position w/brakes in lock position. Bed alarm engaged. Call light within reach. Will continue POC.
[2019-06-16 20:00] VITALS: BP 149/63
[2019-06-16] MEDS: Atorvastatin 20mg tab GT SCH (22:53)
[2019-06-16] MEDS: Epoetin Alfa-EPBX (NON ESRD)10,000 unit/ml vial SUBQ SCH (22:54)
[2019-06-17] VITALS: BP 134/53
--- NOTE | 2019-06-17 | NUR ---
NURSE NOTES: Patient sleeping. In no apparent distress. Respirations even and unlabored. Continue to tolerating G-tube feeding well w/o residual noted. Remain V-paced on telemetry monitor. Avalos draining adequately. Bed is in lowest position w/brakes in lock position. Bed alarm engaged. Call light within reach. Will continue monitor.
[2019-06-17 04:00] VITALS: BP 143/83
--- NOTE | 2019-06-17 04:00 | NUR ---
NURSE NOTES: Patient sleeping on and off. VSS Afebrile. In no apparent distress. Respirations even and unlabored. Continue to tolerating G-tube feeding well. Remain V-paced on monitor technician. Bed is in lowest position w/brakes in lock position. Bed alarm engaged. Call light within reach. Will continue monitor.
[2019-06-17] MEDS: NovoLOG Insulin Flexpen SUBQ SCH ×3 (06:00→18:22)
[2019-06-17 06:28] LABS: ANION GAP 10 mmol/L (5-15); BLOOD UREA NITROGEN 93 mg/dL (7-18); CALCIUM 9.6 MG/DL (8.5-10.1); CARBON DIOXIDE 31 MMOL/L (21-32); CHLORIDE 105 MMOL/L (98-107); CREATININE 2.2 MG/DL (0.55-1.30); POTASSIUM 4.1 MMOL/L (3.5-5.1); SODIUM 146 MMOL/L (136-145)
--- NOTE | 2019-06-17 07:39 | NUR ---
HAND-OFF: Report given to Bj Marshall RN.
--- NOTE | 2019-06-17 07:39 | NUR ---
NURSE NOTES: Received report from Srinivas DAVEY. Pt in bed awake and obtunded, no pain noted on facial pain scale. IV site in LH 20G SL patent and asymptomatic. Side railsx3 up for safety. Rectal tube patent and intact. F/C intact and patent. On P200 mattress. HOB elevated with greater than 30 degree. G-tube patent and asymptomatic, running with Nephro 45ml/hr. Call light within easy reach. Will continue to plan of care.
[2019-06-17 08:00] VITALS: BP 141/75
[2019-06-17] MEDS: Ferrous Sulfate 300 MG/5 ML UDC NG SCH ×3 (09:06→18:26)
[2019-06-17] MEDS: Multivitamins W/Minerals 15 ML UDC GT SCH (09:06)
[2019-06-17] MEDS: Pantoprazole Inj IVP SCH (09:06)
[2019-06-17] MEDS: Metoprolol Tartrate 100mg tab GT SCH ×2 (09:07→20:28)
[2019-06-17] MEDS: Furosemide 80mg tab GT SCH ×2 (09:07→20:28)
[2019-06-17] MEDS: Ascorbic Acid 500mg tab GT SCH (09:07)
[2019-06-17] MEDS: Nephrovite tab (Rena-Vite) GT SCH (09:07)
[2019-06-17] MEDS: Heparin 5000 units/ml inj SUBQ SCH ×2 (09:13→21:00)
[2019-06-17 09:54] LABS: BASOPHILS % (AUTO) 0.7 % (0.0-2.0); EOSINOPHILS % (AUTO) 7.3 % (0.0-3.0); HEMATOCRIT 32.8 % (42.0-52.0); LYMPHOCYTES % (AUTO) 13.4 % (20.0-45.0); MEAN CORPUSCULAR VOLUME 86 FL (80-99); MONOCYTES % (AUTO) 5.6 % (1.0-10.0); PLATELET COUNT 518 K/UL (150-450); RED BLOOD COUNT 3.81 M/UL (4.70-6.10); RED CELL DISTRIBUTION WIDTH 18.1 % (11.6-14.8); WHITE BLOOD COUNT 15.6 K/UL (4.8-10.8)
--- NOTE | 2019-06-17 10:00 | NUR ---
NURSE NOTES: Noted blood filled blister on right thigh with 2(L)x1(w)cm during weekly wound assessment. Blister intact and no skin break down noted. Initial Tx applied. Made Dr. Urias aware. Will continue plan of care.
--- NOTE | 2019-06-17 10:31 | Pulmonology Progress Note ---
Subjective ROS Limited/Unobtainable: Yes Constitutional: Denies: fever Allergies: Coded Allergies: No Known Allergies (Unverified , 06/10/19) Subjective reviewed care consultants noted + diarrhea poor renal function wbc noted Objective Last 24 Hour Vital Signs Date Time Temp Pulse Resp B/P (MAP) Pulse Ox O2 Delivery O2 Flow Rate FiO2 06/17/19 09:07 73 141/75 06/17/19 08:00 35 06/17/19 08:00 97.9 73 14 141/75 (97) 100 06/17/19 08:00 Mechanical Ventilator 06/17/19 08:00 73 06/17/19 07:22 72 18 35 06/17/19 05:15 67 18 35 06/17/19 04:00 97.7 69 17 143/83 (103) 100 06/17/19 04:00 66 06/17/19 04:00 Mechanical Ventilator 06/17/19 04:00 69 06/17/19 04:00 35 06/17/19 03:24 68 16 35 06/17/19 01:01 67 20 35 06/17/19 00:00 35 06/17/19 00:00 66 06/17/19 00:00 98.2 67 20 134/53 (80) 99 06/17/19 00:00 Mechanical Ventilator 06/16/19 23:41 64 17 35 06/16/19 22:52 75 149/63 06/16/19 20:49 75 18 35 06/16/19 20:00 35 06/16/19 20:00 Mechanical Ventilator 06/16/19 20:00 98.6 75 18 149/63 (91) 100 06/16/19 19:57 75 17 35 06/16/19 16:57 71 17 35 06/16/19 16:00 35 06/16/19 16:00 Mechanical Ventilator 06/16/19 16:00 98.6 76 20 157/65 (95) 100 06/16/19 16:00 73 06/16/19 14:42 73 17 35 06/16/19 12:45 69 18 35 06/16/19 12:00 99.0 71 20 158/66 (96) 100 06/16/19 12:00 Mechanical Ventilator 06/16/19 12:00 35 06/16/19 12:00 71 06/16/19 11:22 69 23 35 Intake and Output 06/16/19 06/17/19 19:00 07:00 Intake Total 690 ml 740 ml Output Total 2500 ml 1600 ml Balance -1810 ml -860 ml Intake Free Water 150 ml Tube Feeding 540 ml 540 ml Other 200 ml Output Urine Total 2400 ml 1500 ml Stool Total 100 ml 100 ml # Bowel Movements 5 Objective WDWN NAD trach and gt clear breath sounds bilaterally without rhonchi or wheeze [id number] without MRG NABS nontender no HSM no CC noted edema scrotal edema nonfocal reviewed and edited General Appearance: no acute distress HEENT: status post trach Abdomen: soft, non tender, other - GT Extremities: no edema Neurologic/Psychiatric: unresponsiveness, aphasia Microbiology Date/Time Source Procedure Growth Status 06/16/19 09:00 Stool Clostridium difficile Toxin Assay - Final Complete Laboratory Tests 06/17/19 05:15: Sodium Level 146H, Potassium Level 4.1, Chloride Level 105, Carbon Dioxide Level 31, Anion Gap 10, Blood Urea Nitrogen 93H, Creatinine 2.2H, Estimat Glomerular Filtration Rate 35.4, Glucose Level 107H, Calcium Level 9.6 06/17/19 08:45: White Blood Count 15.6H, Red Blood Count 3.81L, Hemoglobin 10.0L, Hematocrit 32.8L, Mean Corpuscular Volume 86, Mean Corpuscular Hemoglobin 26.4L, Mean Corpuscular Hemoglobin Concent 30.6L, Red Cell Distribution Width 18.1H, Platelet Count 518H, Mean Platelet Volume 5.5L, Neutrophils (%) (Auto) 73.0, Lymphocytes (%) (Auto) 13.4L, Monocytes (%) (Auto) 5.6, Eosinophils (%) (Auto) 7.3H, Basophils (%) (Auto) 0.7 Current Medications Medications (Trade) Dose Ordered Sig/Leonel Route PRN Reason Start Time Stop Time Status Last Admin Dose Admin Acetaminophen (Tylenol) 650 mg Q4H PRN NG Temp >100.5 06/10/19 21:00 07/10/19 20:59 Ascorbic Acid (Vitamin C) 500 mg DAILY GT 06/11/19 09:00 07/11/19 08:59 06/17/19 09:07 Atorvastatin Calcium (Lipitor) 40 mg BEDTIME GT 06/10/19 21:00 09/08/19 20:59 06/16/19 22:53 Dextrose (Dextrose 50%) 25 ml Q30M PRN IV Hypoglycemia 06/10/19 21:00 09/08/19 20:59 Dextrose (Dextrose 50%) 50 ml Q30M PRN IV Hypoglycemia 06/10/19 21:00 09/08/19 20:59 Epoetin Andreas (Epoetin Andreas-EPBX(NON ESRD)) 10,000 unit SUBQ 06/12/19 21:00 09/10/19 20:59 06/16/19 22:54 Ferrous Sulfate (Feosol) 330 mg THREE TIMES A DAY NG 06/11/19 09:00 09/09/19 08:59 06/17/19 09:06 Furosemide (Lasix) 80 mg EVERY 12 HOURS GT 06/15/19 21:00 07/15/19 20:59 06/17/19 09:07 Heparin Sodium (Porcine) (Heparin 5000 units/ml) 5,000 units EVERY 12 HOURS SUBQ 06/10/19 21:00 07/25/19 20:59 06/17/19 09:13 Insulin Aspart (NovoLOG) Q6HR SUBQ 06/11/19 12:00 09/08/19 21:59 06/16/19 23:08 Levofloxacin (Levaquin) 250 mg DAILY ORAL 06/14/19 10:45 06/21/19 10:44 06/17/19 09:07 Loperamide HCl (Imodium) 2 mg Q6H PRN NG Diarrhea 06/17/19 08:30 07/17/19 08:29 06/17/19 09:06 Metoprolol Tartrate (Lopressor) 100 mg Q12HR GT 06/10/19 09:00 09/08/19 08:59 06/17/19 09:07 Multivitamins (Multivitamins W/ Minerals 15ml Liquid) 15 ml DAILY GT 06/11/19 09:00 07/11/19 08:59 06/17/19 09:06 Pantoprazole (Protonix) 40 mg DAILY IVP 06/11/19 09:00 07/11/19 08:59 06/17/19 09:06 Potassium Chloride (K-Dur) 20 meq TWICE A DAY GT 5/3/20 09:00 09/09/19 08:59 06/17/19 09:07 Vitamin B Complex/ Vit C/Folic Acid (Nephrovite) 1 tab DAILY GT 06/11/19 09:00 07/11/19 08:59 06/17/19 09:07 Assessment/Plan Assessment/Plan Anasarca Pulmonary edema scrotal edema Uremia Chronic respiratory failure on Ventilator Hypertension Diabetes Previous pneumonia Subdural hematoma Bedbound Tracheostomy dependent leukocytosis possible sepsis severe PCM anemia diarrhea negative Cdif PLAN vent management renal and ID noted antibiotics reviewed cultures noted monitor urine output and labs feeds as tolerated protein and supplement follow up closely and monitor remains ill and critical rectal tube impression, plan, and exam edited and reviewed in detail care discussed with Kain Tovar MD June 17, 2019 10:31
--- NOTE | 2019-06-17 11:05 | Infectious Diseases Prog Note ---
Assessment/Plan Assessment/Plan antibiotics : levoquin A 1. pneumonia with streptococcus, pseudomonas, stenotrophomonas COVID 19 test negative 5,,20 2. respiratory failure 3. leucocytosis improving 4. diabetes mellitus 5. hypertension 6. renal failure improving 7. SDH 8. + blood cultures with coag neg staph likely contaminated 9. QT prolongation P 1. continue levoquin 6 more days 2. will follow up cultures Subjective ROS Limited/Unobtainable: Yes Allergies: Coded Allergies: No Known Allergies (Unverified , 06/10/19) Objective Vital Signs Last 24 Hour Vital Signs Date Time Temp Pulse Resp B/P (MAP) Pulse Ox O2 Delivery O2 Flow Rate FiO2 06/17/19 09:07 73 141/75 06/17/19 08:00 35 06/17/19 08:00 97.9 73 14 141/75 (97) 100 06/17/19 08:00 Mechanical Ventilator 06/17/19 08:00 73 06/17/19 07:22 72 18 35 06/17/19 05:15 67 18 35 06/17/19 04:00 97.7 69 17 143/83 (103) 100 06/17/19 04:00 66 06/17/19 04:00 Mechanical Ventilator 06/17/19 04:00 69 06/17/19 04:00 35 06/17/19 03:24 68 16 35 06/17/19 01:01 67 20 35 06/17/19 00:00 35 06/17/19 00:00 66 06/17/19 00:00 98.2 67 20 134/53 (80) 99 06/17/19 00:00 Mechanical Ventilator 06/16/19 23:41 64 17 35 06/16/19 22:52 75 149/63 06/16/19 20:49 75 18 35 06/16/19 20:00 35 06/16/19 20:00 Mechanical Ventilator 06/16/19 20:00 98.6 75 18 149/63 (91) 100 06/16/19 19:57 75 17 35 06/16/19 16:57 71 17 35 06/16/19 16:00 35 06/16/19 16:00 Mechanical Ventilator 06/16/19 16:00 98.6 76 20 157/65 (95) 100 06/16/19 16:00 73 06/16/19 14:42 73 17 35 06/16/19 12:45 69 18 35 06/16/19 12:00 99.0 71 20 158/66 (96) 100 06/16/19 12:00 Mechanical Ventilator 06/16/19 12:00 35 06/16/19 12:00 71 06/16/19 11:22 69 23 35 Height (Feet): 5 Height (Inches): 4.00 Weight (Pounds): 162 HEENT: status post trach Respiratory/Chest: lungs clear Cardiovascular: normal rate, regular rhythm, no gallop/murmur Abdomen: soft, non tender, other - GT Extremities: no edema Microbiology Date/Time Source Procedure Growth Status 06/16/19 09:00 Stool Clostridium difficile Toxin Assay - Final Complete Laboratory Tests Test 06/17/19 05:15 06/17/19 08:45 Sodium Level 146 MMOL/L (136-145) H Potassium Level 4.1 MMOL/L (3.5-5.1) Chloride Level 105 MMOL/L (98-107) Carbon Dioxide Level 31 MMOL/L (21-32) Anion Gap 10 mmol/L (5-15) Blood Urea Nitrogen 93 mg/dL (7-18) H Creatinine 2.2 MG/DL (0.55-1.30) H Estimat Glomerular Filtration Rate 35.4 mL/min (>60) Glucose Level 107 MG/DL (74-106) H Calcium Level 9.6 MG/DL (8.5-10.1) White Blood Count 15.6 K/UL (4.8-10.8) H Red Blood Count 3.81 M/UL (4.70-6.10) L Hemoglobin 10.0 G/DL (14.2-18.0) L Hematocrit 32.8 % (42.0-52.0) L Mean Corpuscular Volume 86 FL (80-99) Mean Corpuscular Hemoglobin 26.4 PG (27.0-31.0) L Mean Corpuscular Hemoglobin Concent 30.6 G/DL (32.0-36.0) L Red Cell Distribution Width 18.1 % (11.6-14.8) H Platelet Count 518 K/UL (150-450) H Mean Platelet Volume 5.5 FL (6.5-10.1) L Neutrophils (%) (Auto) 73.0 % (45.0-75.0) Lymphocytes (%) (Auto) 13.4 % (20.0-45.0) L Monocytes (%) (Auto) 5.6 % (1.0-10.0) Eosinophils (%) (Auto) 7.3 % (0.0-3.0) H Basophils (%) (Auto) 0.7 % (0.0-2.0) Current Medications Medications (Trade) Dose Ordered Sig/Leonel Route PRN Reason Start Time Stop Time Status Last Admin Dose Admin Acetaminophen (Tylenol) 650 mg Q4H PRN NG Temp >100.5 06/10/19 21:00 07/10/19 20:59 Ascorbic Acid (Vitamin C) 500 mg DAILY GT 06/11/19 09:00 07/11/19 08:59 06/17/19 09:07 Atorvastatin Calcium (Lipitor) 40 mg BEDTIME GT 06/10/19 21:00 09/08/19 20:59 06/16/19 22:53 Dextrose (Dextrose 50%) 25 ml Q30M PRN IV Hypoglycemia 06/10/19 21:00 09/08/19 20:59 Dextrose (Dextrose 50%) 50 ml Q30M PRN IV Hypoglycemia 06/10/19 21:00 09/08/19 20:59 Epoetin Andreas (Epoetin Andreas-EPBX(NON ESRD)) 10,000 unit WED-WED-WED SUBQ 06/12/19 21:00 09/10/19 20:59 06/16/19 22:54 Ferrous Sulfate (Feosol) 330 mg THREE TIMES A DAY NG 06/11/19 09:00 09/09/19 08:59 06/17/19 09:06 Furosemide (Lasix) 80 mg EVERY 12 HOURS GT 06/15/19 21:00 07/15/19 20:59 06/17/19 09:07 Heparin Sodium (Porcine) (Heparin 5000 units/ml) 5,000 units EVERY 12 HOURS SUBQ 06/10/19 21:00 07/25/19 20:59 06/17/19 09:13 Insulin Aspart (NovoLOG) Q6HR SUBQ 06/11/19 12:00 09/08/19 21:59 06/16/19 23:08 Levofloxacin (Levaquin) 250 mg DAILY ORAL 06/14/19 10:45 06/21/19 10:44 06/17/19 09:07 Loperamide HCl (Imodium) 2 mg Q6H PRN NG Diarrhea 06/17/19 08:30 07/17/19 08:29 06/17/19 09:06 Metoprolol Tartrate (Lopressor) 100 mg Q12HR GT 06/10/19 09:00 09/08/19 08:59 06/17/19 09:07 Multivitamins (Multivitamins W/ Minerals 15ml Liquid) 15 ml DAILY GT 06/11/19 09:00 07/11/19 08:59 06/17/19 09:06 Pantoprazole (Protonix) 40 mg DAILY IVP 06/11/19 09:00 07/11/19 08:59 06/17/19 09:06 Potassium Chloride (K-Dur) 20 meq TWICE A DAY GT 06/11/19 09:00 09/09/19 08:59 06/17/19 09:07 Vitamin B Complex/ Vit C/Folic Acid (Nephrovite) 1 tab DAILY GT 06/11/19 09:00 07/11/19 08:59 06/17/19 09:07 Farnaz Lyle MD June 17, 2019 11:05
[2019-06-17 12:00] VITALS: BP 144/70
[2019-06-17 16:00] VITALS: BP 138/78
--- NOTE | 2019-06-17 18:18 | Surgery Progress Note ---
Surgery Progress Note Subjective Additional Comments no acute events Objective Last 24 Hour Vital Signs Date Time Temp Pulse Resp B/P (MAP) Pulse Ox O2 Delivery O2 Flow Rate FiO2 06/17/19 16:09 74 06/17/19 16:00 98.1 80 17 138/78 (98) 100 06/17/19 16:00 Mechanical Ventilator 06/17/19 16:00 35 06/17/19 15:30 74 18 35 06/17/19 12:30 71 18 35 06/17/19 12:00 35 06/17/19 12:00 68 06/17/19 12:00 Mechanical Ventilator 06/17/19 12:00 98.3 69 17 144/70 (94) 100 06/17/19 10:58 70 18 35 06/17/19 09:07 73 141/75 06/17/19 09:02 76 18 35 06/17/19 08:00 35 06/17/19 08:00 97.9 73 14 141/75 (97) 100 06/17/19 08:00 Mechanical Ventilator 06/17/19 08:00 73 06/17/19 07:22 72 18 35 06/17/19 05:15 67 18 35 06/17/19 04:00 97.7 69 17 143/83 (103) 100 06/17/19 04:00 66 06/17/19 04:00 Mechanical Ventilator 06/17/19 04:00 69 06/17/19 04:00 35 06/17/19 03:24 68 16 35 06/17/19 01:01 67 20 35 06/17/19 00:00 35 06/17/19 00:00 66 06/17/19 00:00 98.2 67 20 134/53 (80) 99 06/17/19 00:00 Mechanical Ventilator 06/16/19 23:41 64 17 35 06/16/19 22:52 75 149/63 06/16/19 20:49 75 18 35 06/16/19 20:00 35 06/16/19 20:00 Mechanical Ventilator 06/16/19 20:00 98.6 75 18 149/63 (91) 100 06/16/19 19:57 75 17 35 I&O Intake and Output 06/16/19 06/17/19 19:00 07:00 Intake Total 690 ml 740 ml Output Total 2500 ml 1600 ml Balance -1810 ml -860 ml Intake Free Water 150 ml Tube Feeding 540 ml 540 ml Other 200 ml Output Urine Total 2400 ml 1500 ml Stool Total 100 ml 100 ml # Bowel Movements 5 Dressing: saturated Wound: clean Cardiovascular: RSR Respiratory: decreased breath sounds Abdomen: soft, non-tender, present bowel sounds Extremities: no cyanosis Laboratory Tests Test 06/17/19 05:15 06/17/19 08:45 Sodium Level 146 MMOL/L (136-145) H Potassium Level 4.1 MMOL/L (3.5-5.1) Chloride Level 105 MMOL/L (98-107) Carbon Dioxide Level 31 MMOL/L (21-32) Anion Gap 10 mmol/L (5-15) Blood Urea Nitrogen 93 mg/dL (7-18) H Creatinine 2.2 MG/DL (0.55-1.30) H Estimat Glomerular Filtration Rate 35.4 mL/min (>60) Glucose Level 107 MG/DL (74-106) H Calcium Level 9.6 MG/DL (8.5-10.1) White Blood Count 15.6 K/UL (4.8-10.8) H Red Blood Count 3.81 M/UL (4.70-6.10) L Hemoglobin 10.0 G/DL (14.2-18.0) L Hematocrit 32.8 % (42.0-52.0) L Mean Corpuscular Volume 86 FL (80-99) Mean Corpuscular Hemoglobin 26.4 PG (27.0-31.0) L Mean Corpuscular Hemoglobin Concent 30.6 G/DL (32.0-36.0) L Red Cell Distribution Width 18.1 % (11.6-14.8) H Platelet Count 518 K/UL (150-450) H Mean Platelet Volume 5.5 FL (6.5-10.1) L Neutrophils (%) (Auto) 73.0 % (45.0-75.0) Lymphocytes (%) (Auto) 13.4 % (20.0-45.0) L Monocytes (%) (Auto) 5.6 % (1.0-10.0) Eosinophils (%) (Auto) 7.3 % (0.0-3.0) H Basophils (%) (Auto) 0.7 % (0.0-2.0) Plan Problems: (1) Decubitus skin ulcer Assessment & Plan: Pt presented on admission with generalized edema,grossly enlarged scrotum, contractures and multiple pressure injuries. Full thickness stage 4 pressure injury L Sacrum (L)1.6cm x (W)1.8cm x (D)0.3cm. Base of wound has 40% slough,60% beefy red. Borders are macerated. Small amt sanguineus exudate noted. Wound noted to be within field of previous wound. Periwound, skin tone is darker without induration or fluctuance. Scattered areas of hyperpigmentation from previous wounds noted to R and L Buttocks. Grossly enlarged and erythematous scrotum . Clusters of linear partial thickness ulcers noted at base of scrotum.moderate amt of serous exudate noted .Shaft of penis is grossly edematous. DTPI noted to medial L heel. Base of wound is maroon and fluctuant. (L)4cm x (W) 4.5cm. R heel is boggy with non-blanching erythema. Tx.Plan: Cleanse Sacral wound with Saline. Apply TheraHoney.Apply Moisture Barrier Paste periwound. Cover with Optifoam drsg. Change every 3 days and prn. Apply Moisture Barrier Paste to Bilat groin and scrotum with each Incontinence care. Cover each trochanter/Hips areas with Optifoam drsgs. Change every 7 days and prn. Apply Cavilon Skin Barrier to both heels. Cover each heel with Optifoam drsg. Change every 7 days and prn. Reposition at least every 2hours or as tolerated. Off-load heels with Pillow. APM/BECCA Mattress overlay. (2) Malnutrition Assessment & Plan: DAILY ESTIMATED NEEDS: Needs based on Renal, critical care, wound/ 62kg 22-28 kcals/kg 5667-0948 total kcals 1-1.3 (increase w/ renal improvement) g protein/kg 62-81 g total protein 20-25 mL/kg 0455-2153 total fluid mLs NUTRITION DIAGNOSIS: * Swallowing difficulty R/T respiratory failure, dysphagia as evidenced by trach/vent dep, PEG dep * Increased kcal/prot needs R/T wound healing as evidenced by admitted w/ lt buttock open wound, pending eval. CURRENT TF:Nepro @ 45ml/hr x 24 hrs ENTERAL NUTRITION RECOMMENDATIONS: Nepro @ 40ml/hr x 24 hrs to provide 960ml, 1728kcal, 78g prot, 698ml free water * LOWER goal rate to 40ml/hr x 24 hrs : meets 100% est kcal/prot needs * HOB over 30 degrees/ water flush per MD ---- W/ consistently low K level and stable renal fxn, rec to change TF to Glucerna 1.5 @ 45ml/hr x 24 hrs to provide 1080ml, 1620kcal, 89g prot, 820ml free water ADDITIONAL RECOMMENDATIONS: * Per SNF: HT=64" CV=428 lbs (Vs EMR wt of 150lbs) -> obtain re-calibrated bedscale wt * Monitor lytes and renal fxn, need to continue Nepro * Wound healing: Continue Vit C, add Garo BID via PEG * Monitor BGs, need for additional hypoglycemics. (3) Chronic respiratory failure Assessment & Plan: FINDINGS: Hardware: Tracheostomy tube terminates in the region of the upper/mid thoracic trachea. Lungs/pleura: Bilateral pleural effusions. Opacities throughout right greater than left lungs, concerning for pulmonary edema and/or infectious/inflammatory process. Heart/mediastinum: Mild enlargement of the cardiac silhouette. Atherosclerotic calcifications of the aorta. Left-sided pacemaker. Soft tissues: Unremarkable. Bones: No acute fracture. Degenerative changes of the spine Upper abdomen: Normal. IMPRESSION: Bilateral pleural effusions. Opacities throughout right greater than left lungs, concerning for pulmonary edema and/or infectious/inflammatory process. Trach Care (4) Anasarca (5) Leukocytosis Assessment & Plan: Patient identified to have significant leukocytosis, anemia , abnormal labs. Albumin low. Renal insufficiency. Anasarca. Microbiology noted Sputum sample resulted Antibiotics per infectious disease Wound evaluated likely etiology of patient's infectious source Will monitor closely and provide assistance thank you for let me participate in patient's care wbc Jonathan Sandoval June 17, 2019 18:18
--- NOTE | 2019-06-17 19:08 | Nephrology Progress Note ---
Assessment/Plan Problem List: (1) Hypokalemia (2) CKD (chronic kidney disease) stage 5, GFR less than 15 ml/min (3) Anasarca (4) Pulmonary edema (5) Chronic respiratory failure (6) Uremia Plan continue lasix but change to gt, , kcl gfr 7, avoid nephrotoxins, has had good diuresis Subjective ROS Limited/Unobtainable: Yes Objective Objective Last 24 Hour Vital Signs Date Time Temp Pulse Resp B/P (MAP) Pulse Ox O2 Delivery O2 Flow Rate FiO2 06/17/19 16:09 74 06/17/19 16:00 98.1 80 17 138/78 (98) 100 06/17/19 16:00 Mechanical Ventilator 06/17/19 16:00 35 06/17/19 15:30 74 18 35 06/17/19 12:30 71 18 35 06/17/19 12:00 35 06/17/19 12:00 68 06/17/19 12:00 Mechanical Ventilator 06/17/19 12:00 98.3 69 17 144/70 (94) 100 06/17/19 10:58 70 18 35 06/17/19 09:07 73 141/75 06/17/19 09:02 76 18 35 06/17/19 08:00 35 06/17/19 08:00 97.9 73 14 141/75 (97) 100 06/17/19 08:00 Mechanical Ventilator 06/17/19 08:00 73 06/17/19 07:22 72 18 35 06/17/19 05:15 67 18 35 06/17/19 04:00 97.7 69 17 143/83 (103) 100 06/17/19 04:00 66 06/17/19 04:00 Mechanical Ventilator 06/17/19 04:00 69 06/17/19 04:00 35 06/17/19 03:24 68 16 35 06/17/19 01:01 67 20 35 06/17/19 00:00 35 06/17/19 00:00 66 06/17/19 00:00 98.2 67 20 134/53 (80) 99 06/17/19 00:00 Mechanical Ventilator 06/16/19 23:41 64 17 35 06/16/19 22:52 75 149/63 06/16/19 20:49 75 18 35 06/16/19 20:00 35 06/16/19 20:00 Mechanical Ventilator 06/16/19 20:00 98.6 75 18 149/63 (91) 100 06/16/19 19:57 75 17 35 Intake and Output 06/16/19 06/17/19 19:00 07:00 Intake Total 690 ml 740 ml Output Total 2500 ml 1600 ml Balance -1810 ml -860 ml Intake Free Water 150 ml Tube Feeding 540 ml 540 ml Other 200 ml Output Urine Total 2400 ml 1500 ml Stool Total 100 ml 100 ml # Bowel Movements 5 Laboratory Tests 06/17/19 05:15: Sodium Level 146H, Potassium Level 4.1, Chloride Level 105, Carbon Dioxide Level 31, Anion Gap 10, Blood Urea Nitrogen 93H, Creatinine 2.2H, Estimat Glomerular Filtration Rate 35.4, Glucose Level 107H, Calcium Level 9.6 06/17/19 08:45: White Blood Count 15.6H, Red Blood Count 3.81L, Hemoglobin 10.0L, Hematocrit 32.8L, Mean Corpuscular Volume 86, Mean Corpuscular Hemoglobin 26.4L, Mean Corpuscular Hemoglobin Concent 30.6L, Red Cell Distribution Width 18.1H, Platelet Count 518H, Mean Platelet Volume 5.5L, Neutrophils (%) (Auto) 73.0, Lymphocytes (%) (Auto) 13.4L, Monocytes (%) (Auto) 5.6, Eosinophils (%) (Auto) 7.3H, Basophils (%) (Auto) 0.7 Height (Feet): 5 Height (Inches): 4.00 Weight (Pounds): 162 General Appearance: lethargic, other - on vent Cardiovascular: regular rhythm Respiratory/Chest: crackles/rales Abdomen: non tender Extremities: non-tender, trace edema Neurologic: unresponsive Carmelo Frank MD June 17, 2019 19:08
--- NOTE | 2019-06-17 19:18 | NUR ---
HAND-OFF: Report given to Ivonne DAVEY. Pt remains stable.
--- NOTE | 2019-06-17 19:20 | NUR ---
NURSE NOTES: Received pt from TAMICA Madsen. pt observed in bed, appears to be sleeping, nonverbal, unable to make needs known. no s/sx of pain noted at this time. trach to vent settings as follows: Shiley: 8, AC: 16, VT: 450, FiO2: 35%, PEEP: 5. tolerating well, no s/sx of respiratory distress noted. G-tube site is patent and intact, running Nepro at 45 cc/hr. HOB elevated to 30 degrees, no residual noted. Rectal tube and F/C are patent and intact, draining to gravity. LH 20 g IV site is patent and intact, asymptomatic. bed in lowest position and locked, siderails up X3, all needs attended to. will continue to monitor.
[2019-06-17 20:00] VITALS: BP 152/59
[2019-06-17] MEDS: Atorvastatin 20mg tab GT SCH (20:28)
[2019-06-18] VITALS: BP 155/69
[2019-06-18] MEDS: NovoLOG Insulin Flexpen SUBQ SCH ×5 (00:47→23:34)
[2019-06-18 04:00] VITALS: BP 165/77
[2019-06-18 06:17] LABS: BASOPHILS % (AUTO) 0.4 % (0.0-2.0); EOSINOPHILS % (AUTO) 7.5 % (0.0-3.0); HEMATOCRIT 31.1 % (42.0-52.0); HEMOGLOBIN 9.6 G/DL (14.2-18.0); LYMPHOCYTES % (AUTO) 16.8 % (20.0-45.0); MEAN CORPUSCULAR VOLUME 86 FL (80-99); MONOCYTES % (AUTO) 6.6 % (1.0-10.0); NEUTROPHILS % (AUTO) 68.7 % (45.0-75.0); PLATELET COUNT 537 K/UL (150-450); RED BLOOD COUNT 3.62 M/UL (4.70-6.10); RED CELL DISTRIBUTION WIDTH 18.5 % (11.6-14.8); WHITE BLOOD COUNT 17.4 K/UL (4.8-10.8)
[2019-06-18 07:18] LABS: ANION GAP 10 mmol/L (5-15); BLOOD UREA NITROGEN 96 mg/dL (7-18); CARBON DIOXIDE 35 MMOL/L (21-32); CHLORIDE 103 MMOL/L (98-107); CREATININE 2.2 MG/DL (0.55-1.30); POTASSIUM 4.6 MMOL/L (3.5-5.1); SODIUM 148 MMOL/L (136-145)
--- NOTE | 2019-06-18 07:20 | NUR ---
NURSE NOTES: Received report from Ivonne DAVEY. Pt in bed awake and obtunded. No c/o pain noted from facial pain scale. IV site in LH 20G SL patent and asymptomatic. Side railsx3 up for safety. Call light within easy reach. HOB elevated with 45 degree. G-tube intact and patent running with Nephro 45cc/hr patent and asymptomatic. F/C patent and asymptomatic. On rectal tube patent and asymptomatic. Will continue to plan of care.
--- NOTE | 2019-06-18 07:25 | NUR ---
HAND-OFF: Report given to TAMICA Madsen. endorsed plan of care.
--- NOTE | 2019-06-18 07:58 | Pulmonology Progress Note ---
Subjective ROS Limited/Unobtainable: Yes Constitutional: Denies: fever Allergies: Coded Allergies: No Known Allergies (Unverified , 06/10/19) Subjective reviewed care consultants noted poor renal function wbc noted Objective Last 24 Hour Vital Signs Date Time Temp Pulse Resp B/P (MAP) Pulse Ox O2 Delivery O2 Flow Rate FiO2 06/18/19 04:00 83 06/18/19 04:00 Mechanical Ventilator 06/18/19 04:00 35 06/18/19 04:00 97.3 84 19 165/77 (106) 100 06/18/19 03:25 78 19 35 06/18/19 00:00 69 06/18/19 00:00 98.2 72 16 155/69 (97) 100 06/18/19 00:00 35 06/18/19 00:00 Mechanical Ventilator 06/17/19 23:18 79 22 35 06/17/19 20:28 78 152/59 06/17/19 20:00 Mechanical Ventilator 06/17/19 20:00 35 06/17/19 20:00 98.2 78 16 152/59 (90) 100 06/17/19 19:26 73 06/17/19 19:24 76 19 35 06/17/19 16:09 74 06/17/19 16:00 98.1 80 17 138/78 (98) 100 06/17/19 16:00 Mechanical Ventilator 06/17/19 16:00 35 06/17/19 15:30 74 18 35 06/17/19 12:30 71 18 35 06/17/19 12:00 35 06/17/19 12:00 68 06/17/19 12:00 Mechanical Ventilator 06/17/19 12:00 98.3 69 17 144/70 (94) 100 06/17/19 10:58 70 18 35 06/17/19 09:07 73 141/75 06/17/19 09:02 76 18 35 06/17/19 08:00 35 06/17/19 08:00 97.9 73 14 141/75 (97) 100 06/17/19 08:00 Mechanical Ventilator 06/17/19 08:00 73 Intake and Output 06/17/19 06/18/19 19:00 07:00 Intake Total 595 ml 740 ml Output Total 1750 ml 1400 ml Balance -1155 ml -660 ml Intake Free Water 100 ml 200 ml Tube Feeding 495 ml 540 ml Output Urine Total 1750 ml 1400 ml # Bowel Movements 100 Objective WDWN NAD trach and gt clear breath sounds bilaterally without rhonchi or wheeze [id number] without MRG NABS nontender no HSM no CC noted edema better scrotal edema nonfocal reviewed and edited General Appearance: no acute distress HEENT: status post trach Abdomen: soft, non tender, other - GT Extremities: no edema Neurologic/Psychiatric: unresponsiveness, aphasia Microbiology Date/Time Source Procedure Growth Status 06/16/19 09:00 Stool Clostridium difficile Toxin Assay - Final Complete Laboratory Tests 06/17/19 08:45: White Blood Count 15.6H, Red Blood Count 3.81L, Hemoglobin 10.0L, Hematocrit 32.8L, Mean Corpuscular Volume 86, Mean Corpuscular Hemoglobin 26.4L, Mean Corpuscular Hemoglobin Concent 30.6L, Red Cell Distribution Width 18.1H, Platelet Count 518H, Mean Platelet Volume 5.5L, Neutrophils (%) (Auto) 73.0, Lymphocytes (%) (Auto) 13.4L, Monocytes (%) (Auto) 5.6, Eosinophils (%) (Auto) 7.3H, Basophils (%) (Auto) 0.7 06/18/19 03:00: White Blood Count 17.4H, Red Blood Count 3.62L, Hemoglobin 9.6L, Hematocrit 31.1L, Mean Corpuscular Volume 86, Mean Corpuscular Hemoglobin 26.5L, Mean Corpuscular Hemoglobin Concent 30.8L, Red Cell Distribution Width 18.5H, Platelet Count 537H, Mean Platelet Volume 5.6L, Neutrophils (%) (Auto) 68.7, Lymphocytes (%) (Auto) 16.8L, Monocytes (%) (Auto) 6.6, Eosinophils (%) (Auto) 7.5H, Basophils (%) (Auto) 0.4, Sodium Level 148H, Potassium Level 4.6, Chloride Level 103, Carbon Dioxide Level 35H, Anion Gap 10, Blood Urea Nitrogen 96H, Creatinine 2.2H, Estimat Glomerular Filtration Rate 35.4, Glucose Level 153H, Calcium Level 9.0 Current Medications Medications (Trade) Dose Ordered Sig/Leonel Route PRN Reason Start Time Stop Time Status Last Admin Dose Admin Acetaminophen (Tylenol) 650 mg Q4H PRN NG Temp >100.5 06/10/19 21:00 07/10/19 20:59 Ascorbic Acid (Vitamin C) 500 mg DAILY GT 06/11/19 09:00 07/11/19 08:59 06/17/19 09:07 Atorvastatin Calcium (Lipitor) 40 mg BEDTIME GT 06/10/19 21:00 09/08/19 20:59 06/17/19 20:28 Dextrose (Dextrose 50%) 25 ml Q30M PRN IV Hypoglycemia 06/10/19 21:00 09/08/19 20:59 Dextrose (Dextrose 50%) 50 ml Q30M PRN IV Hypoglycemia 06/10/19 21:00 09/08/19 20:59 Epoetin Andreas (Epoetin Andreas-EPBX(NON ESRD)) 10,000 unit WED- SUBQ 06/12/19 21:00 09/10/19 20:59 06/16/19 22:54 Ferrous Sulfate (Feosol) 330 mg THREE TIMES A DAY NG 06/11/19 09:00 09/09/19 08:59 06/17/19 18:26 Furosemide (Lasix) 80 mg EVERY 12 HOURS GT 06/15/19 21:00 07/15/19 20:59 06/17/19 20:28 Heparin Sodium (Porcine) (Heparin 5000 units/ml) 5,000 units EVERY 12 HOURS SUBQ 06/10/19 21:00 07/25/19 20:59 06/17/19 09:13 Insulin Aspart (NovoLOG) Q6HR SUBQ 06/11/19 12:00 09/08/19 21:59 06/18/19 05:17 Levofloxacin (Levaquin) 250 mg DAILY ORAL 06/14/19 10:45 06/21/19 10:44 06/17/19 09:07 Loperamide HCl (Imodium) 2 mg Q6H PRN NG Diarrhea 06/17/19 08:30 07/17/19 08:29 06/17/19 21:19 Metoprolol Tartrate (Lopressor) 100 mg Q12HR GT 06/10/19 09:00 09/08/19 08:59 06/17/19 20:28 Multivitamins (Multivitamins W/ Minerals 15ml Liquid) 15 ml DAILY GT 06/11/19 09:00 07/11/19 08:59 06/17/19 09:06 Pantoprazole (Protonix) 40 mg DAILY IVP 06/11/19 09:00 07/11/19 08:59 06/17/19 09:06 Potassium Chloride (K-Dur) 20 meq TWICE A DAY GT 06/11/19 09:00 09/09/19 08:59 06/17/19 18:26 Vitamin B Complex/ Vit C/Folic Acid (Nephrovite) 1 tab DAILY GT 06/11/19 09:00 07/11/19 08:59 06/17/19 09:07 Assessment/Plan Assessment/Plan Anasarca Pulmonary edema scrotal edema Uremia Chronic respiratory failure on Ventilator Hypertension Diabetes Previous pneumonia Subdural hematoma Bedbound Tracheostomy dependent leukocytosis possible sepsis severe PCM anemia diarrhea negative Cdif PLAN vent management as is renal and ID noted antibiotics reviewed cultures noted monitor urine output and labs feeds as tolerated protein and supplement follow up closely and monitor remains ill and critical rectal tube as needed hope to dispo soon impression, plan, and exam edited and reviewed in detail care discussed with Kain Tovar MD June 18, 2019 07:58
[2019-06-18 08:00] VITALS: BP 168/78
[2019-06-18] MEDS: Metoprolol Tartrate 100mg tab GT SCH ×2 (08:27→20:52)
[2019-06-18] MEDS: Pantoprazole Inj IVP SCH (08:27)
[2019-06-18] MEDS: Ascorbic Acid 500mg tab GT SCH (08:27)
[2019-06-18] MEDS: Furosemide 80mg tab GT SCH ×2 (08:27→20:52)
[2019-06-18] MEDS: Multivitamins W/Minerals 15 ML UDC GT SCH (08:28)
[2019-06-18] MEDS: Nephrovite tab (Rena-Vite) GT SCH (08:28)
[2019-06-18] MEDS: Ferrous Sulfate 300 MG/5 ML UDC NG SCH ×2 (08:28→12:57)
[2019-06-18] MEDS: Heparin 5000 units/ml inj SUBQ SCH ×2 (08:32→20:54)
[2019-06-18 12:00] VITALS: BP 153/76
--- NOTE | 2019-06-18 12:07 | Infectious Diseases Prog Note ---
Assessment/Plan Assessment/Plan A 1. pneumonia with streptococcus, pseudomonas, stenotrophomonas COVID19 test negative 5,3,20 2. Ventilatory dependent respiratory failure 3. Leucocytosis 4. Diabetes mellitus 5. hypertension 6. renal failure 7. SDH 8. + blood cultures with coag neg staph likely contaminated 9. QT prolongation 10. Diarrhea, C. difficile: negative P 1. Continue Levaquin X 5 days Subjective ROS Limited/Unobtainable: Yes Gastrointestinal/Abdominal: Reports: diarrhea Allergies: Coded Allergies: No Known Allergies (Unverified , 06/10/19) Objective Vital Signs Last 24 Hour Vital Signs Date Time Temp Pulse Resp B/P (MAP) Pulse Ox O2 Delivery O2 Flow Rate FiO2 06/18/19 08:27 84 168/78 06/18/19 08:00 35 06/18/19 08:00 Mechanical Ventilator 06/18/19 08:00 35 06/18/19 08:00 98.1 84 20 168/78 (108) 100 06/18/19 08:00 83 06/18/19 04:00 83 06/18/19 04:00 Mechanical Ventilator 06/18/19 04:00 35 06/18/19 04:00 97.3 84 19 165/77 (106) 100 06/18/19 03:25 78 19 35 06/18/19 00:00 69 06/18/19 00:00 98.2 72 16 155/69 (97) 100 06/18/19 00:00 35 06/18/19 00:00 Mechanical Ventilator 06/17/19 23:18 79 22 35 06/17/19 20:28 78 152/59 06/17/19 20:00 Mechanical Ventilator 06/17/19 20:00 35 06/17/19 20:00 98.2 78 16 152/59 (90) 100 06/17/19 19:26 73 06/17/19 19:24 76 19 35 06/17/19 16:09 74 06/17/19 16:00 98.1 80 17 138/78 (98) 100 06/17/19 16:00 Mechanical Ventilator 06/17/19 16:00 35 06/17/19 15:30 74 18 35 06/17/19 12:30 71 18 35 Height (Feet): 5 Height (Inches): 4.00 Weight (Pounds): 162 HEENT: mucous membranes moist Respiratory/Chest: lungs clear, other - on ventilator Cardiovascular: normal rate Abdomen: soft, non tender, other - GT & rectal tube Extremities: no edema Neurologic/Psychiatric: aphasia Musculoskeletal: atrophy Microbiology Date/Time Source Procedure Growth Status 06/16/19 09:00 Stool Clostridium difficile Toxin Assay - Final Complete Laboratory Tests Test 06/18/19 03:00 White Blood Count 17.4 K/UL (4.8-10.8) H Red Blood Count 3.62 M/UL (4.70-6.10) L Hemoglobin 9.6 G/DL (14.2-18.0) L Hematocrit 31.1 % (42.0-52.0) L Mean Corpuscular Volume 86 FL (80-99) Mean Corpuscular Hemoglobin 26.5 PG (27.0-31.0) L Mean Corpuscular Hemoglobin Concent 30.8 G/DL (32.0-36.0) L Red Cell Distribution Width 18.5 % (11.6-14.8) H Platelet Count 537 K/UL (150-450) H Mean Platelet Volume 5.6 FL (6.5-10.1) L Neutrophils (%) (Auto) 68.7 % (45.0-75.0) Lymphocytes (%) (Auto) 16.8 % (20.0-45.0) L Monocytes (%) (Auto) 6.6 % (1.0-10.0) Eosinophils (%) (Auto) 7.5 % (0.0-3.0) H Basophils (%) (Auto) 0.4 % (0.0-2.0) Sodium Level 148 MMOL/L (136-145) H Potassium Level 4.6 MMOL/L (3.5-5.1) Chloride Level 103 MMOL/L (98-107) Carbon Dioxide Level 35 MMOL/L (21-32) H Anion Gap 10 mmol/L (5-15) Blood Urea Nitrogen 96 mg/dL (7-18) H Creatinine 2.2 MG/DL (0.55-1.30) H Estimat Glomerular Filtration Rate 35.4 mL/min (>60) Glucose Level 153 MG/DL (74-106) H Calcium Level 9.0 MG/DL (8.5-10.1) Current Medications Medications (Trade) Dose Ordered Sig/Leonel Route PRN Reason Start Time Stop Time Status Last Admin Dose Admin Acetaminophen (Tylenol) 650 mg Q4H PRN NG Temp >100.5 06/10/19 21:00 07/10/19 20:59 Ascorbic Acid (Vitamin C) 500 mg DAILY GT 06/11/19 09:00 07/11/19 08:59 06/18/19 08:27 Atorvastatin Calcium (Lipitor) 40 mg BEDTIME GT 06/10/19 21:00 09/08/19 20:59 06/17/19 20:28 Dextrose (Dextrose 50%) 25 ml Q30M PRN IV Hypoglycemia 06/10/19 21:00 09/08/19 20:59 Dextrose (Dextrose 50%) 50 ml Q30M PRN IV Hypoglycemia 06/10/19 21:00 09/08/19 20:59 Epoetin Andreas (Epoetin Andreas-EPBX(NON ESRD)) 10,000 unit WED-WED-WED SUBQ 06/12/19 21:00 09/10/19 20:59 06/16/19 22:54 Ferrous Sulfate (Feosol) 330 mg THREE TIMES A DAY NG 06/11/19 09:00 09/09/19 08:59 06/18/19 08:28 Furosemide (Lasix) 80 mg EVERY 12 HOURS GT 06/15/19 21:00 07/15/19 20:59 06/18/19 08:27 Heparin Sodium (Porcine) (Heparin 5000 units/ml) 5,000 units EVERY 12 HOURS SUBQ 06/10/19 21:00 07/25/19 20:59 06/18/19 08:32 Insulin Aspart (NovoLOG) Q6HR SUBQ 06/11/19 12:00 09/08/19 21:59 06/18/19 05:17 Levofloxacin (Levaquin) 250 mg DAILY ORAL 06/14/19 10:45 06/21/19 10:44 06/18/19 08:28 Loperamide HCl (Imodium) 2 mg Q6H PRN NG Diarrhea 06/17/19 08:30 07/17/19 08:29 06/17/19 21:19 Metoprolol Tartrate (Lopressor) 100 mg Q12HR GT 06/10/19 09:00 09/08/19 08:59 06/18/19 08:27 Multivitamins (Multivitamins W/ Minerals 15ml Liquid) 15 ml DAILY GT 06/11/19 09:00 07/11/19 08:59 06/18/19 08:28 Pantoprazole (Protonix) 40 mg DAILY IVP 06/11/19 09:00 07/11/19 08:59 06/18/19 08:27 Potassium Chloride (K-Dur) 20 meq TWICE A DAY GT 06/11/19 09:00 09/09/19 08:59 06/18/19 08:29 Vitamin B Complex/ Vit C/Folic Acid (Nephrovite) 1 tab DAILY GT 06/11/19 09:00 07/11/19 08:59 06/18/19 08:28 Real De Leon MD June 18, 2019 12:07
--- NOTE | 2019-06-18 13:00 | NUR ---
HAND-OFF: Report given to TAMICA Ruiz and TAMICA Molina. Pt remains stable.
--- NOTE | 2019-06-18 13:01 | NUR ---
NURSE NOTES: Received patient in bed. Vent dependent. In no apparent distress. With continuous GTF as tolerated. Avalos cath inplace. Contact isolation observed. Will continue plan of care.
[2019-06-18] MEDS ORDERED: NS 275ml ONE ×2 (14:54→15:00)
[2019-06-18] MEDS ORDERED: Tubing IV Secondary IV ONE (15:00)
[2019-06-18 16:00] VITALS: BP 153/65
--- NOTE | 2019-06-18 16:36 | Surgery Progress Note ---
Surgery Progress Note Subjective Additional Comments worsening leukocytosis labs otherwise noted wounds closely monitored and unlikely etiology abx leva Objective Last 24 Hour Vital Signs Date Time Temp Pulse Resp B/P (MAP) Pulse Ox O2 Delivery O2 Flow Rate FiO2 06/18/19 12:00 98.0 77 20 153/76 (101) 100 06/18/19 12:00 Mechanical Ventilator 06/18/19 12:00 35 06/18/19 11:59 76 06/18/19 08:27 84 168/78 06/18/19 08:00 35 06/18/19 08:00 Mechanical Ventilator 06/18/19 08:00 35 06/18/19 08:00 98.1 84 20 168/78 (108) 100 06/18/19 08:00 83 06/18/19 04:00 83 06/18/19 04:00 Mechanical Ventilator 06/18/19 04:00 35 06/18/19 04:00 97.3 84 19 165/77 (106) 100 06/18/19 03:25 78 19 35 06/18/19 00:00 69 06/18/19 00:00 98.2 72 16 155/69 (97) 100 06/18/19 00:00 35 06/18/19 00:00 Mechanical Ventilator 06/17/19 23:18 79 22 35 06/17/19 20:28 78 152/59 06/17/19 20:00 Mechanical Ventilator 06/17/19 20:00 35 06/17/19 20:00 98.2 78 16 152/59 (90) 100 06/17/19 19:26 73 06/17/19 19:24 76 19 35 I&O Intake and Output 06/17/19 06/18/19 19:00 07:00 Intake Total 595 ml 740 ml Output Total 1750 ml 1400 ml Balance -1155 ml -660 ml Intake Free Water 100 ml 200 ml Tube Feeding 495 ml 540 ml Output Urine Total 1750 ml 1400 ml # Bowel Movements 100 Dressing: saturated Wound: other Drains: other Cardiovascular: RSR Respiratory: decreased breath sounds Abdomen: soft, non-tender, present bowel sounds Extremities: no cyanosis, other Laboratory Tests Test 06/18/19 03:00 White Blood Count 17.4 K/UL (4.8-10.8) H Red Blood Count 3.62 M/UL (4.70-6.10) L Hemoglobin 9.6 G/DL (14.2-18.0) L Hematocrit 31.1 % (42.0-52.0) L Mean Corpuscular Volume 86 FL (80-99) Mean Corpuscular Hemoglobin 26.5 PG (27.0-31.0) L Mean Corpuscular Hemoglobin Concent 30.8 G/DL (32.0-36.0) L Red Cell Distribution Width 18.5 % (11.6-14.8) H Platelet Count 537 K/UL (150-450) H Mean Platelet Volume 5.6 FL (6.5-10.1) L Neutrophils (%) (Auto) 68.7 % (45.0-75.0) Lymphocytes (%) (Auto) 16.8 % (20.0-45.0) L Monocytes (%) (Auto) 6.6 % (1.0-10.0) Eosinophils (%) (Auto) 7.5 % (0.0-3.0) H Basophils (%) (Auto) 0.4 % (0.0-2.0) Sodium Level 148 MMOL/L (136-145) H Potassium Level 4.6 MMOL/L (3.5-5.1) Chloride Level 103 MMOL/L (98-107) Carbon Dioxide Level 35 MMOL/L (21-32) H Anion Gap 10 mmol/L (5-15) Blood Urea Nitrogen 96 mg/dL (7-18) H Creatinine 2.2 MG/DL (0.55-1.30) H Estimat Glomerular Filtration Rate 35.4 mL/min (>60) Glucose Level 153 MG/DL (74-106) H Calcium Level 9.0 MG/DL (8.5-10.1) Plan Problems: (1) Decubitus skin ulcer Assessment & Plan: Pt presented on admission with generalized edema,grossly enlarged scrotum, contractures and multiple pressure injuries. Full thickness stage 4 pressure injury L Sacrum (L)1.6cm x (W)1.8cm x (D)0.3cm. Base of wound has 40% slough,60% beefy red. Borders are macerated. Small amt sanguineus exudate noted. Wound noted to be within field of previous wound. Periwound, skin tone is darker without induration or fluctuance. Scattered areas of hyperpigmentation from previous wounds noted to R and L Buttocks. Grossly enlarged and erythematous scrotum . Clusters of linear partial thickness ulcers noted at base of scrotum.moderate amt of serous exudate noted .Shaft of penis is grossly edematous. DTPI noted to medial L heel. Base of wound is maroon and fluctuant. (L)4cm x (W) 4.5cm. R heel is boggy with non-blanching erythema. Tx.Plan: Cleanse Sacral wound with Saline. Apply TheraHoney.Apply Moisture Barrier Paste periwound. Cover with Optifoam drsg. Change every 3 days and prn. Apply Moisture Barrier Paste to Bilat groin and scrotum with each Incontinence care. Cover each trochanter/Hips areas with Optifoam drsgs. Change every 7 days and prn. Apply Cavilon Skin Barrier to both heels. Cover each heel with Optifoam drsg. Change every 7 days and prn. Reposition at least every 2hours or as tolerated. Off-load heels with Pillow. APM/BECCA Mattress overlay. (2) Malnutrition Assessment & Plan: DAILY ESTIMATED NEEDS: Needs based on Renal, critical care, wound/ 62kg 22-28 kcals/kg 7661-8293 total kcals 1-1.3 (increase w/ renal improvement) g protein/kg 62-81 g total protein 20-25 mL/kg 2738-2748 total fluid mLs NUTRITION DIAGNOSIS: * Swallowing difficulty R/T respiratory failure, dysphagia as evidenced by trach/vent dep, PEG dep * Increased kcal/prot needs R/T wound healing as evidenced by admitted w/ lt buttock open wound, pending eval. CURRENT TF:Nepro @ 45ml/hr x 24 hrs ENTERAL NUTRITION RECOMMENDATIONS: Nepro @ 40ml/hr x 24 hrs to provide 960ml, 1728kcal, 78g prot, 698ml free water * LOWER goal rate to 40ml/hr x 24 hrs : meets 100% est kcal/prot needs * HOB over 30 degrees/ water flush per MD ---- W/ consistently low K level and stable renal fxn, rec to change TF to Glucerna 1.5 @ 45ml/hr x 24 hrs to provide 1080ml, 1620kcal, 89g prot, 820ml free water ADDITIONAL RECOMMENDATIONS: * Per SNF: HT=64" GJ=317 lbs (Vs EMR wt of 150lbs) -> obtain re-calibrated bedscale wt * Monitor lytes and renal fxn, need to continue Nepro * Wound healing: Continue Vit C, add Garo BID via PEG * Monitor BGs, need for additional hypoglycemics. (3) Chronic respiratory failure Assessment & Plan: FINDINGS: Hardware: Tracheostomy tube terminates in the region of the upper/mid thoracic trachea. Lungs/pleura: Bilateral pleural effusions. Opacities throughout right greater than left lungs, concerning for pulmonary edema and/or infectious/inflammatory process. Heart/mediastinum: Mild enlargement of the cardiac silhouette. Atherosclerotic calcifications of the aorta. Left-sided pacemaker. Soft tissues: Unremarkable. Bones: No acute fracture. Degenerative changes of the spine Upper abdomen: Normal. IMPRESSION: Bilateral pleural effusions. Opacities throughout right greater than left lungs, concerning for pulmonary edema and/or infectious/inflammatory process. Trach Care (4) Anasarca (5) Leukocytosis Assessment & Plan: Patient identified to have significant leukocytosis, anemia , abnormal labs. Albumin low. Renal insufficiency. Anasarca. Microbiology noted Sputum sample resulted Antibiotics per infectious disease Wound evaluated likely etiology of patient's infectious source Will monitor closely and provide assistance thank you for let me participate in patient's care wbc improved Jonathan Urias June 18, 2019 16:36
--- NOTE | 2019-06-18 17:00 | NUR ---
NURSE NOTES: Rectal tube noted. with low liquid output.
--- NOTE | 2019-06-18 18:41 | Nephrology Progress Note ---
Assessment/Plan Problem List: (1) Hypokalemia (2) CKD (chronic kidney disease) stage 5, GFR less than 15 ml/min (3) Anasarca (4) Pulmonary edema (5) Chronic respiratory failure (6) Uremia Plan continue lasix but change to gt, , kcl gfr 7, avoid nephrotoxins, has had good diuresis Subjective ROS Limited/Unobtainable: Yes Objective Objective Last 24 Hour Vital Signs Date Time Temp Pulse Resp B/P (MAP) Pulse Ox O2 Delivery O2 Flow Rate FiO2 06/18/19 16:40 76 06/18/19 16:00 100.0 82 20 153/65 (94) 99 06/18/19 16:00 35 06/18/19 16:00 Mechanical Ventilator 06/18/19 15:06 83 16 35 06/18/19 12:00 98.0 77 20 153/76 (101) 100 06/18/19 12:00 Mechanical Ventilator 06/18/19 12:00 35 06/18/19 11:59 76 06/18/19 10:35 76 14 35 06/18/19 08:27 84 168/78 06/18/19 08:00 35 06/18/19 08:00 Mechanical Ventilator 06/18/19 08:00 35 06/18/19 08:00 98.1 84 20 168/78 (108) 100 06/18/19 08:00 83 06/18/19 07:24 81 21 35 06/18/19 04:00 83 06/18/19 04:00 Mechanical Ventilator 06/18/19 04:00 35 06/18/19 04:00 97.3 84 19 165/77 (106) 100 06/18/19 03:25 78 19 35 06/18/19 00:00 69 06/18/19 00:00 98.2 72 16 155/69 (97) 100 06/18/19 00:00 35 06/18/19 00:00 Mechanical Ventilator 06/17/19 23:18 79 22 35 06/17/19 20:28 78 152/59 06/17/19 20:00 Mechanical Ventilator 06/17/19 20:00 35 06/17/19 20:00 98.2 78 16 152/59 (90) 100 06/17/19 19:26 73 06/17/19 19:24 76 19 35 Intake and Output 06/17/19 06/18/19 19:00 07:00 Intake Total 595 ml 740 ml Output Total 1750 ml 1400 ml Balance -1155 ml -660 ml Intake Free Water 100 ml 200 ml Tube Feeding 495 ml 540 ml Output Urine Total 1750 ml 1400 ml # Bowel Movements 100 Laboratory Tests 06/18/19 03:00: White Blood Count 17.4H, Red Blood Count 3.62L, Hemoglobin 9.6L, Hematocrit 31.1L, Mean Corpuscular Volume 86, Mean Corpuscular Hemoglobin 26.5L, Mean Corpuscular Hemoglobin Concent 30.8L, Red Cell Distribution Width 18.5H, Platelet Count 537H, Mean Platelet Volume 5.6L, Neutrophils (%) (Auto) 68.7, Lymphocytes (%) (Auto) 16.8L, Monocytes (%) (Auto) 6.6, Eosinophils (%) (Auto) 7.5H, Basophils (%) (Auto) 0.4, Sodium Level 148H, Potassium Level 4.6, Chloride Level 103, Carbon Dioxide Level 35H, Anion Gap 10, Blood Urea Nitrogen 96H, Creatinine 2.2H, Estimat Glomerular Filtration Rate 35.4, Glucose Level 153H, Calcium Level 9.0 Height (Feet): 5 Height (Inches): 4.00 Weight (Pounds): 162 General Appearance: lethargic, other - vent Cardiovascular: regular rhythm Respiratory/Chest: crackles/rales Abdomen: soft Extremities: no edema Neurologic: unresponsive Carmelo Frank MD June 18, 2019 18:41
--- NOTE | 2019-06-18 19:31 | NUR ---
HAND-OFF: Report given to Ivonne Quiles RN.
--- NOTE | 2019-06-18 19:32 | NUR ---
NURSE NOTES: Received pt from Sara RN and Deep Phan RN. pt is observed in bed, obtunded, unable to make needs known; no s/sx of pain noted at this time. trach to vent settings are as follows: Shiley: 8, AC: 16, VT: 450, FiO2: 35%, PEEP: 5. tolerating current settings well, saturation: 100%; no s/sx of respiratory distress noted. no acute cardiac distress noted. G-tube site is patent and intact, running Nepro at 45 cc/hr. HOB elevated to 30 degrees, no residual noted. Rectal tube and F/C are patent and intact, draining to gravity. LH 20 g IV site is patent and intact, asymptomatic. bed in lowest position and locked, siderails up X3, all needs attended to. will continue to monitor.
[2019-06-18 20:00] VITALS: BP 156/68
[2019-06-18] MEDS: Atorvastatin 20mg tab GT SCH (20:51)
[2019-06-18] MEDS: Acetaminophen 650mg/20.3ml NG PRN (20:57)
[2019-06-18] MEDS: Ferrous Sulfate 300 MG/5 ML UDC GT SCH (21:42)
[2019-06-19] VITALS: BP 153/69
[2019-06-19 04:00] VITALS: BP 140/71
--- NOTE | 2019-06-19 04:20 | NUR ---
NURSE NOTES: bed bath given, pt tolerated well. new gown and linens applied. oral care provided. bed in lowest position and locked, siderails up X3, all needs attended to. will continue to monitor.
[2019-06-19] MEDS: Ferrous Sulfate 300 MG/5 ML UDC GT SCH ×3 (05:29→21:56)
[2019-06-19] MEDS: NovoLOG Insulin Flexpen SUBQ SCH ×4 (05:31→23:28)
[2019-06-19 05:49] LABS: BASOPHILS % (AUTO) 0.5 % (0.0-2.0); EOSINOPHILS % (AUTO) 9.2 % (0.0-3.0); HEMATOCRIT 32.8 % (42.0-52.0); HEMOGLOBIN 10.1 G/DL (14.2-18.0); LYMPHOCYTES % (AUTO) 15.6 % (20.0-45.0); MEAN CORPUSCULAR VOLUME 86 FL (80-99); MONOCYTES % (AUTO) 6.7 % (1.0-10.0); PLATELET COUNT 555 K/UL (150-450); RED BLOOD COUNT 3.81 M/UL (4.70-6.10); WHITE BLOOD COUNT 16.5 K/UL (4.8-10.8)
[2019-06-19 06:18] LABS: ANION GAP 5 mmol/L (5-15); BLOOD UREA NITROGEN 94 mg/dL (7-18); CALCIUM 9.6 MG/DL (8.5-10.1); CARBON DIOXIDE 38 MMOL/L (21-32); CHLORIDE 104 MMOL/L (98-107); CREATININE 2.4 MG/DL (0.55-1.30); POTASSIUM 4.2 MMOL/L (3.5-5.1); SODIUM 147 MMOL/L (136-145)
--- NOTE | 2019-06-19 07:24 | NUR ---
HAND-OFF: Report given to Corrine Storey RN. endorsed plan of care.
--- NOTE | 2019-06-19 07:30 | NUR ---
NURSE NOTES: Received report from TAMICA Coronado. Bed is in lowest position, brakes engaged. No s/sx of SOB, breathing is even and unlabored, vent settings are as ordered. Patient is nonverbal, observed no presence of pain or discomfort at this time. Bed is in lowest position, brakes engaged. Call light is kept within easy reach. Will continue to monitor patient.
[2019-06-19 08:00] VITALS: BP 157/73
--- NOTE | 2019-06-19 08:45 | Pulmonology Progress Note ---
Subjective ROS Limited/Unobtainable: Yes Constitutional: Denies: fever Gastrointestinal/Abdominal: Reports: diarrhea Allergies: Coded Allergies: No Known Allergies (Unverified , 06/10/19) Subjective reviewed care consultants noted poor renal function wbc noted Objective Last 24 Hour Vital Signs Date Time Temp Pulse Resp B/P (MAP) Pulse Ox O2 Delivery O2 Flow Rate FiO2 06/19/19 08:00 35 06/19/19 08:00 Mechanical Ventilator 06/19/19 08:00 98.1 81 16 157/73 (101) 100 06/19/19 07:43 80 16 35 06/19/19 04:55 77 17 35 06/19/19 04:00 98.4 74 16 140/71 (94) 99 06/19/19 04:00 Mechanical Ventilator 06/19/19 04:00 35 06/19/19 03:39 72 06/19/19 02:30 74 17 35 06/19/19 00:00 70 06/19/19 00:00 Mechanical Ventilator 06/19/19 00:00 98.4 72 16 153/69 (97) 100 06/18/19 22:47 80 16 35 06/18/19 20:52 84 156/68 06/18/19 20:00 100.0 84 16 156/68 (97) 100 06/18/19 20:00 35 06/18/19 20:00 Mechanical Ventilator 06/18/19 19:29 86 06/18/19 18:44 84 18 35 06/18/19 16:40 76 06/18/19 16:00 100.0 82 20 153/65 (94) 99 06/18/19 16:00 35 06/18/19 16:00 Mechanical Ventilator 06/18/19 15:06 83 16 35 06/18/19 12:00 98.0 77 20 153/76 (101) 100 06/18/19 12:00 Mechanical Ventilator 06/18/19 12:00 35 06/18/19 11:59 76 06/18/19 10:35 76 14 35 Intake and Output 06/18/19 06/19/19 19:00 07:00 Intake Total 690 ml 695 ml Output Total 1610 ml Balance -920 ml 695 ml Intake Free Water 150 ml 200 ml Tube Feeding 540 ml 495 ml Output Urine Total 1600 ml Stool Total 10 ml # Bowel Movements 1 Objective WDWN NAD trach and gt clear breath sounds bilaterally without rhonchi or wheeze [id number] without MRG NABS nontender no HSM no CC noted edema better scrotal edema nonfocal reviewed and edited General Appearance: no acute distress HEENT: mucous membranes moist Abdomen: soft, non tender, other - GT & rectal tube Extremities: no edema Neurologic/Psychiatric: aphasia Musculoskeletal: atrophy Microbiology Date/Time Source Procedure Growth Status 06/16/19 09:00 Stool Clostridium difficile Toxin Assay - Final Complete Laboratory Tests 06/19/19 03:49: White Blood Count 16.5H, Red Blood Count 3.81L, Hemoglobin 10.1L, Hematocrit 32.8L, Mean Corpuscular Volume 86, Mean Corpuscular Hemoglobin 26.6L, Mean Corpuscular Hemoglobin Concent 30.9L, Red Cell Distribution Width 18.0H, Platelet Count 555H, Mean Platelet Volume 5.6L, Neutrophils (%) (Auto) 68.0, Lymphocytes (%) (Auto) 15.6L, Monocytes (%) (Auto) 6.7, Eosinophils (%) (Auto) 9.2H, Basophils (%) (Auto) 0.5, Sodium Level 147H, Potassium Level 4.2, Chloride Level 104, Carbon Dioxide Level 38H, Anion Gap 5, Blood Urea Nitrogen 94H, Creatinine 2.4H, Estimat Glomerular Filtration Rate 32.0, Glucose Level 157H, Uric Acid 8.0H, Calcium Level 9.6 Current Medications Medications (Trade) Dose Ordered Sig/Leonel Route PRN Reason Start Time Stop Time Status Last Admin Dose Admin Acetaminophen (Tylenol) 650 mg Q4H PRN NG Temp >100.5 06/10/19 21:00 07/10/19 20:59 06/18/19 20:57 Ascorbic Acid (Vitamin C) 500 mg DAILY GT 06/11/19 09:00 07/11/19 08:59 06/18/19 08:27 Atorvastatin Calcium (Lipitor) 40 mg BEDTIME GT 06/10/19 21:00 09/08/19 20:59 06/18/19 20:51 Dextrose (Dextrose 50%) 25 ml Q30M PRN IV Hypoglycemia 06/10/19 21:00 09/08/19 20:59 Dextrose (Dextrose 50%) 50 ml Q30M PRN IV Hypoglycemia 06/10/19 21:00 09/08/19 20:59 Epoetin Andreas (Epoetin Andreas-EPBX(NON ESRD)) 10,000 unit WED-WED-WED SUBQ 06/12/19 21:00 09/10/19 20:59 06/16/19 22:54 Ferrous Sulfate (Feosol) 300 mg EVERY 8 HOURS GT 06/18/19 22:00 09/09/19 08:59 06/19/19 05:29 Furosemide (Lasix) 80 mg EVERY 12 HOURS GT 06/15/19 21:00 07/15/19 20:59 06/18/19 20:52 Heparin Sodium (Porcine) (Heparin 5000 units/ml) 5,000 units EVERY 12 HOURS SUBQ 06/10/19 21:00 07/25/19 20:59 06/18/19 20:54 Insulin Aspart (NovoLOG) Q6HR SUBQ 06/11/19 12:00 09/08/19 21:59 06/19/19 05:31 Levofloxacin (Levaquin) 250 mg DAILY ORAL 06/14/19 10:45 06/21/19 10:44 06/18/19 08:28 Loperamide HCl (Imodium) 2 mg Q6H PRN NG Diarrhea 06/17/19 08:30 07/17/19 08:29 06/17/19 21:19 Metoprolol Tartrate (Lopressor) 100 mg Q12HR GT 06/10/19 09:00 09/08/19 08:59 06/18/19 20:52 Multivitamins (Multivitamins W/ Minerals 15ml Liquid) 15 ml DAILY GT 06/11/19 09:00 07/11/19 08:59 06/18/19 08:28 Pantoprazole (Protonix) 40 mg DAILY IVP 06/11/19 09:00 07/11/19 08:59 06/18/19 08:27 Potassium Chloride (K-Dur) 20 meq EVERY 12 HOURS GT 06/18/19 21:00 09/09/19 08:59 06/18/19 20:51 Vitamin B Complex/ Vit C/Folic Acid (Nephrovite) 1 tab DAILY GT 06/11/19 09:00 07/11/19 08:59 06/18/19 08:28 Assessment/Plan Assessment/Plan Anasarca Pulmonary edema scrotal edema Uremia Chronic respiratory failure on Ventilator Hypertension Diabetes Previous pneumonia Subdural hematoma Bedbound Tracheostomy dependent leukocytosis possible sepsis severe PCM anemia diarrhea negative Cdif PLAN vent management as is renal and ID noted antibiotics reviewed cultures noted monitor urine output and labs feeds as tolerated protein and supplement follow up closely and monitor hope to dispo soon; d/w ID impression, plan, and exam edited and reviewed in detail care discussed with Kain Tovar MD June 19, 2019 08:45
[2019-06-19] MEDS: Nephrovite tab (Rena-Vite) GT SCH (09:06)
[2019-06-19] MEDS: Ascorbic Acid 500mg tab GT SCH (09:07)
[2019-06-19] MEDS: Pantoprazole Inj IVP SCH (09:07)
[2019-06-19] MEDS: Furosemide 80mg tab GT SCH ×2 (09:07→20:30)
[2019-06-19] MEDS: Multivitamins W/Minerals 15 ML UDC GT SCH (09:07)
[2019-06-19] MEDS: Metoprolol Tartrate 100mg tab GT SCH ×2 (09:08→20:29)
[2019-06-19] MEDS: Heparin 5000 units/ml inj SUBQ SCH ×2 (09:09→20:31)
--- NOTE | 2019-06-19 09:32 | NUR ---
RD ASSESSMENT & RECOMMENDATIONS SEE CARE ACTIVITY FOR COMPLETE ASSESSMENT DAILY ESTIMATED NEEDS: Needs based on Renal, critical care, wound/ 62kg 22-28 kcals/kg 2192-9912 total kcals 1.25-1.5 (increase w/ renal improvement) g protein/kg 77-93 g total protein 20-25 mL/kg 6535-4480 total fluid mLs NUTRITION DIAGNOSIS: * Swallowing difficulty R/T respiratory failure, dysphagia as evidenced by trach/vent dep, PEG dep * Increased kcal/prot needs R/T wound healing as evidenced by admitted w/ multiple pressure injuries including full thickness at L sacrum. (CURRENT TF: Nepro @ 45ml/hr x 24 hrs) ENTERAL NUTRITION RECOMMENDATIONS: LOWER NEPRO to 40ml/hr x 24 hrs to provide 960ml, 1728 kcal,m 78g pro, 698ml free H2O * Rec lower TF to goal of 40ml/hr x24 hrs to not exceed est kcal needs (BG elevated 161-215) * HOB over 30 degrees/ water flush per MD ADDITIONAL RECOMMENDATIONS: * Per SNF: HT=64" VB=605 lbs (Vs EMR wt of 150lbs) -> obtain re-calibrated bedscale wt * Monitor lytes and renal fxn, need to continue Nepro K 4.2, rec to maintain Nepro; lower rate to 40ml/hr * Monitor BGs- good BG control at thsi time * Wound healing: Continue Vit C, add Garo BID via PEG
--- NOTE | 2019-06-19 11:17 | Infectious Diseases Prog Note ---
Assessment/Plan Assessment/Plan antibiotics : levoquin A 1. pneumonia with streptococcus, pseudomonas, stenotrophomonas COVID 19 test negative ,20 2. respiratory failure 3. leucocytosis improving 4. diabetes mellitus 5. hypertension 6. renal failure improving 7. SDH 8. + blood cultures with coag neg staph likely contaminated 9. QT prolongation P 1. continue levoquin 4 more days 2. will follow up cultures 3. repeat COVID 19 test Subjective ROS Limited/Unobtainable: Yes Allergies: Coded Allergies: No Known Allergies (Unverified , 06/10/19) Objective Vital Signs Last 24 Hour Vital Signs Date Time Temp Pulse Resp B/P (MAP) Pulse Ox O2 Delivery O2 Flow Rate FiO2 06/19/19 11:04 75 16 35 06/19/19 09:42 77 19 35 06/19/19 09:08 81 157/73 06/19/19 08:00 35 06/19/19 08:00 81 06/19/19 08:00 Mechanical Ventilator 06/19/19 08:00 98.1 81 16 157/73 (101) 100 06/19/19 07:43 80 16 35 06/19/19 04:55 77 17 35 06/19/19 04:00 98.4 74 16 140/71 (94) 99 06/19/19 04:00 Mechanical Ventilator 06/19/19 04:00 35 06/19/19 03:39 72 06/19/19 02:30 74 17 35 06/19/19 00:00 70 06/19/19 00:00 Mechanical Ventilator 06/19/19 00:00 98.4 72 16 153/69 (97) 100 06/18/19 22:47 80 16 35 06/18/19 20:52 84 156/68 06/18/19 20:00 100.0 84 16 156/68 (97) 100 06/18/19 20:00 35 06/18/19 20:00 Mechanical Ventilator 06/18/19 19:29 86 06/18/19 18:44 84 18 35 06/18/19 16:40 76 06/18/19 16:00 100.0 82 20 153/65 (94) 99 06/18/19 16:00 35 06/18/19 16:00 Mechanical Ventilator 06/18/19 15:06 83 16 35 06/18/19 12:00 98.0 77 20 153/76 (101) 100 06/18/19 12:00 Mechanical Ventilator 06/18/19 12:00 35 06/18/19 11:59 76 Height (Feet): 5 Height (Inches): 4.00 Weight (Pounds): 162 HEENT: status post trach Respiratory/Chest: lungs clear Cardiovascular: normal rate, regular rhythm, no gallop/murmur Abdomen: soft, non tender, other - GT Extremities: no edema Laboratory Tests Test 06/19/19 03:49 White Blood Count 16.5 K/UL (4.8-10.8) H Red Blood Count 3.81 M/UL (4.70-6.10) L Hemoglobin 10.1 G/DL (14.2-18.0) L Hematocrit 32.8 % (42.0-52.0) L Mean Corpuscular Volume 86 FL (80-99) Mean Corpuscular Hemoglobin 26.6 PG (27.0-31.0) L Mean Corpuscular Hemoglobin Concent 30.9 G/DL (32.0-36.0) L Red Cell Distribution Width 18.0 % (11.6-14.8) H Platelet Count 555 K/UL (150-450) H Mean Platelet Volume 5.6 FL (6.5-10.1) L Neutrophils (%) (Auto) 68.0 % (45.0-75.0) Lymphocytes (%) (Auto) 15.6 % (20.0-45.0) L Monocytes (%) (Auto) 6.7 % (1.0-10.0) Eosinophils (%) (Auto) 9.2 % (0.0-3.0) H Basophils (%) (Auto) 0.5 % (0.0-2.0) Sodium Level 147 MMOL/L (136-145) H Potassium Level 4.2 MMOL/L (3.5-5.1) Chloride Level 104 MMOL/L (98-107) Carbon Dioxide Level 38 MMOL/L (21-32) H Anion Gap 5 mmol/L (5-15) Blood Urea Nitrogen 94 mg/dL (7-18) H Creatinine 2.4 MG/DL (0.55-1.30) H Estimat Glomerular Filtration Rate 32.0 mL/min (>60) Glucose Level 157 MG/DL (74-106) H Uric Acid 8.0 MG/DL (2.6-7.2) H Calcium Level 9.6 MG/DL (8.5-10.1) Current Medications Medications (Trade) Dose Ordered Sig/Leonel Route PRN Reason Start Time Stop Time Status Last Admin Dose Admin Acetaminophen (Tylenol) 650 mg Q4H PRN NG Temp >100.5 06/10/19 21:00 07/10/19 20:59 06/18/19 20:57 Ascorbic Acid (Vitamin C) 500 mg DAILY GT 06/11/19 09:00 07/11/19 08:59 06/19/19 09:07 Atorvastatin Calcium (Lipitor) 40 mg BEDTIME GT 06/10/19 21:00 09/08/19 20:59 06/18/19 20:51 Dextrose (Dextrose 50%) 25 ml Q30M PRN IV Hypoglycemia 06/10/19 21:00 09/08/19 20:59 Dextrose (Dextrose 50%) 50 ml Q30M PRN IV Hypoglycemia 06/10/19 21:00 09/08/19 20:59 Epoetin Andreas (Epoetin Andreas-EPBX(NON ESRD)) 10,000 unit WED-WED-WED SUBQ 06/12/19 21:00 09/10/19 20:59 06/16/19 22:54 Ferrous Sulfate (Feosol) 300 mg EVERY 8 HOURS GT 06/18/19 22:00 09/09/19 08:59 06/19/19 05:29 Furosemide (Lasix) 80 mg EVERY 12 HOURS GT 06/15/19 21:00 07/15/19 20:59 06/19/19 09:07 Heparin Sodium (Porcine) (Heparin 5000 units/ml) 5,000 units EVERY 12 HOURS SUBQ 06/10/19 21:00 07/25/19 20:59 06/19/19 09:09 Insulin Aspart (NovoLOG) Q6HR SUBQ 06/11/19 12:00 09/08/19 21:59 06/19/19 05:31 Levofloxacin (Levaquin) 250 mg DAILY ORAL 06/14/19 10:45 06/21/19 10:44 06/19/19 09:07 Loperamide HCl (Imodium) 2 mg Q6H PRN NG Diarrhea 06/17/19 08:30 07/17/19 08:29 06/17/19 21:19 Metoprolol Tartrate (Lopressor) 100 mg Q12HR GT 06/10/19 09:00 09/08/19 08:59 06/19/19 09:08 Multivitamins (Multivitamins W/ Minerals 15ml Liquid) 15 ml DAILY GT 06/11/19 09:00 07/11/19 08:59 06/19/19 09:07 Pantoprazole (Protonix) 40 mg DAILY IVP 06/11/19 09:00 07/11/19 08:59 06/19/19 09:07 Potassium Chloride (K-Dur) 20 meq EVERY 12 HOURS GT 06/18/19 21:00 09/09/19 08:59 06/19/19 09:07 Vitamin B Complex/ Vit C/Folic Acid (Nephrovite) 1 tab DAILY GT 06/11/19 09:00 07/11/19 08:59 06/19/19 09:06 Farnaz Lyle MD June 19, 2019 11:17
[2019-06-19 12:00] VITALS: BP 145/62
--- NOTE | 2019-06-19 12:44 | Surgery Progress Note ---
Surgery Progress Note Subjective Additional Comments persistent leukocytosis h/h stable renal function borderline min responsive Objective Last 24 Hour Vital Signs Date Time Temp Pulse Resp B/P (MAP) Pulse Ox O2 Delivery O2 Flow Rate FiO2 06/19/19 12:00 35 06/19/19 12:00 Mechanical Ventilator 06/19/19 12:00 99.5 78 16 145/62 (89) 100 06/19/19 11:04 75 16 35 06/19/19 09:42 77 19 35 06/19/19 09:08 81 157/73 06/19/19 08:00 35 06/19/19 08:00 81 06/19/19 08:00 Mechanical Ventilator 06/19/19 08:00 98.1 81 16 157/73 (101) 100 06/19/19 07:43 80 16 35 06/19/19 04:55 77 17 35 06/19/19 04:00 98.4 74 16 140/71 (94) 99 06/19/19 04:00 Mechanical Ventilator 06/19/19 04:00 35 06/19/19 03:39 72 06/19/19 02:30 74 17 35 06/19/19 00:00 70 06/19/19 00:00 Mechanical Ventilator 06/19/19 00:00 98.4 72 16 153/69 (97) 100 06/18/19 22:47 80 16 35 06/18/19 20:52 84 156/68 06/18/19 20:00 100.0 84 16 156/68 (97) 100 06/18/19 20:00 35 06/18/19 20:00 Mechanical Ventilator 06/18/19 19:29 86 06/18/19 18:44 84 18 35 06/18/19 16:40 76 06/18/19 16:00 100.0 82 20 153/65 (94) 99 06/18/19 16:00 35 06/18/19 16:00 Mechanical Ventilator 06/18/19 15:06 83 16 35 I&O Intake and Output 06/18/19 06/19/19 19:00 07:00 Intake Total 690 ml 695 ml Output Total 1610 ml Balance -920 ml 695 ml Intake Free Water 150 ml 200 ml Tube Feeding 540 ml 495 ml Output Urine Total 1600 ml Stool Total 10 ml # Bowel Movements 1 Dressing: other Wound: other Drains: other Cardiovascular: RSR Respiratory: decreased breath sounds Abdomen: soft, non-tender, present bowel sounds Extremities: no cyanosis, other Laboratory Tests Test 06/19/19 03:49 White Blood Count 16.5 K/UL (4.8-10.8) H Red Blood Count 3.81 M/UL (4.70-6.10) L Hemoglobin 10.1 G/DL (14.2-18.0) L Hematocrit 32.8 % (42.0-52.0) L Mean Corpuscular Volume 86 FL (80-99) Mean Corpuscular Hemoglobin 26.6 PG (27.0-31.0) L Mean Corpuscular Hemoglobin Concent 30.9 G/DL (32.0-36.0) L Red Cell Distribution Width 18.0 % (11.6-14.8) H Platelet Count 555 K/UL (150-450) H Mean Platelet Volume 5.6 FL (6.5-10.1) L Neutrophils (%) (Auto) 68.0 % (45.0-75.0) Lymphocytes (%) (Auto) 15.6 % (20.0-45.0) L Monocytes (%) (Auto) 6.7 % (1.0-10.0) Eosinophils (%) (Auto) 9.2 % (0.0-3.0) H Basophils (%) (Auto) 0.5 % (0.0-2.0) Sodium Level 147 MMOL/L (136-145) H Potassium Level 4.2 MMOL/L (3.5-5.1) Chloride Level 104 MMOL/L (98-107) Carbon Dioxide Level 38 MMOL/L (21-32) H Anion Gap 5 mmol/L (5-15) Blood Urea Nitrogen 94 mg/dL (7-18) H Creatinine 2.4 MG/DL (0.55-1.30) H Estimat Glomerular Filtration Rate 32.0 mL/min (>60) Glucose Level 157 MG/DL (74-106) H Uric Acid 8.0 MG/DL (2.6-7.2) H Calcium Level 9.6 MG/DL (8.5-10.1) Plan Problems: (1) Decubitus skin ulcer Assessment & Plan: Pt presented on admission with generalized edema,grossly enlarged scrotum, contractures and multiple pressure injuries. Full thickness stage 4 pressure injury L Sacrum (L)1.6cm x (W)1.8cm x (D)0.3cm. Base of wound has 40% slough,60% beefy red. Borders are macerated. Small amt sanguineus exudate noted. Wound noted to be within field of previous wound. Periwound, skin tone is darker without induration or fluctuance. Scattered areas of hyperpigmentation from previous wounds noted to R and L Buttocks. Grossly enlarged and erythematous scrotum . Clusters of linear partial thickness ulcers noted at base of scrotum.moderate amt of serous exudate noted .Shaft of penis is grossly edematous. DTPI noted to medial L heel. Base of wound is maroon and fluctuant. (L)4cm x (W) 4.5cm. R heel is boggy with non-blanching erythema. Tx.Plan: Cleanse Sacral wound with Saline. Apply TheraHoney.Apply Moisture Barrier Paste periwound. Cover with Optifoam drsg. Change every 3 days and prn. Apply Moisture Barrier Paste to Bilat groin and scrotum with each Incontinence care. Cover each trochanter/Hips areas with Optifoam drsgs. Change every 7 days and prn. Apply Cavilon Skin Barrier to both heels. Cover each heel with Optifoam drsg. Change every 7 days and prn. Reposition at least every 2hours or as tolerated. Off-load heels with Pillow. APM/BECCA Mattress overlay. (2) Malnutrition Assessment & Plan: DAILY ESTIMATED NEEDS: Needs based on Renal, critical care, wound/ 62kg 22-28 kcals/kg 0051-7643 total kcals 1.25-1.5 (increase w/ renal improvement) g protein/kg 77-93 g total protein 20-25 mL/kg 7627-5650 total fluid mLs NUTRITION DIAGNOSIS: * Swallowing difficulty R/T respiratory failure, dysphagia as evidenced by trach/vent dep, PEG dep * Increased kcal/prot needs R/T wound healing as evidenced by admitted w/ multiple pressure injuries including full thickness at L sacrum. (CURRENT TF: Nepro @ 45ml/hr x 24 hrs) ENTERAL NUTRITION RECOMMENDATIONS: LOWER NEPRO to 40ml/hr x 24 hrs to provide 960ml, 1728 kcal,m 78g pro, 698ml free H2O * Rec lower TF to goal of 40ml/hr x24 hrs to not exceed est kcal needs (BG elevated 161-215) * HOB over 30 degrees/ water flush per MD ADDITIONAL RECOMMENDATIONS: * Per SNF: HT=64" KL=998 lbs (Vs EMR wt of 150lbs) -> obtain re-calibrated bedscale wt * Monitor lytes and renal fxn, need to continue Nepro K 4.2, rec to maintain Nepro; lower rate to 40ml/hr * Monitor BGs- good BG control at thsi time * Wound healing: Continue Vit C, add Garo BID via PEG (3) Chronic respiratory failure Assessment & Plan: FINDINGS: Hardware: Tracheostomy tube terminates in the region of the upper/mid thoracic trachea. Lungs/pleura: Bilateral pleural effusions. Opacities throughout right greater than left lungs, concerning for pulmonary edema and/or infectious/inflammatory process. Heart/mediastinum: Mild enlargement of the cardiac silhouette. Atherosclerotic calcifications of the aorta. Left-sided pacemaker. Soft tissues: Unremarkable. Bones: No acute fracture. Degenerative changes of the spine Upper abdomen: Normal. IMPRESSION: Bilateral pleural effusions. Opacities throughout right greater than left lungs, concerning for pulmonary edema and/or infectious/inflammatory process. Trach Care (4) Anasarca (5) Leukocytosis Assessment & Plan: Patient identified to have significant leukocytosis, anemia , abnormal labs. Albumin low. Renal insufficiency. Anasarca. Microbiology noted Sputum sample resulted Antibiotics per infectious disease Wound evaluated likely etiology of patient's infectious source Will monitor closely and provide assistance thank you for let me participate in patient's care wbc persistent Jonathan Urias June 19, 2019 12:44
--- NOTE | 2019-06-19 14:32 | NUR ---
CASE MANAGEMENT: REVIEW SI: VENT DEPENDANT . PULMONARY EDEMA . T 99.5 HR 78 RR 16 BP 145/62 SAT 100% MECH VENT FIO2 35 WBC 16.5 NA 147 BUN 94 CR 2.4 REPEAT COVID TEST PENDING IS: LASIX 80MG GT Q12HR PROTONIX QD LEVAQUIN GT QD NOVOLOG SUBQ STEP DOWN UNIT STATUS DCP: PATIENT IS FROM [facility]
[2019-06-19] MEDS: Acetaminophen 650mg/20.3ml NG PRN (15:42)
[2019-06-19 16:00] VITALS: BP 139/63
[2019-06-19] MEDS ORDERED: NS 275ml ONE (17:07)
--- NOTE | 2019-06-19 17:29 | NUR ---
*-* INSURANCE *-* ALL AVAILABLE CLINICALS HAVE BEEN FAXED TO: [employer] tracking# [id number] ; Jessy ph# [phone] ext [phone] fax# [phone]
--- NOTE | 2019-06-19 19:01 | NUR ---
RESPIRATORY NOTE: Received pt on AC 16, 450VT, 35%, PEEP +5. Pt is trach-dependent w/ a cuffed, Shiley 8 tube. Pt obtunded. B/S ovi. rhonchi, sxn small amounts of thick, perez-yellow secretions. Vent plugged into red outlet, ambubag at bedside. Pt in no apparent distress at this time. Will continue plan of care.
--- NOTE | 2019-06-19 19:30 | NUR ---
HAND-OFF: Report given to TAMICA Mata.
--- NOTE | 2019-06-19 19:47 | Nephrology Progress Note ---
Assessment/Plan Problem List: (1) Hypokalemia (2) CKD (chronic kidney disease) stage 5, GFR less than 15 ml/min (3) Anasarca (4) Pulmonary edema (5) Chronic respiratory failure (6) Uremia Plan continue lasix but change to gt, , kcl gfr 7, avoid nephrotoxins, has had good diuresis Subjective ROS Limited/Unobtainable: Yes Objective Objective Last 24 Hour Vital Signs Date Time Temp Pulse Resp B/P (MAP) Pulse Ox O2 Delivery O2 Flow Rate FiO2 06/19/19 18:58 73 16 35 06/19/19 17:15 76 16 35 06/19/19 16:12 99.7 06/19/19 16:00 Mechanical Ventilator 06/19/19 16:00 99.7 81 16 139/63 (88) 100 06/19/19 16:00 82 06/19/19 16:00 35 06/19/19 14:43 80 16 35 06/19/19 12:56 79 16 35 06/19/19 12:00 35 06/19/19 12:00 Mechanical Ventilator 06/19/19 12:00 75 06/19/19 12:00 99.5 78 16 145/62 (89) 100 06/19/19 11:04 75 16 35 06/19/19 09:42 77 19 35 06/19/19 09:08 81 157/73 06/19/19 08:00 35 06/19/19 08:00 81 06/19/19 08:00 Mechanical Ventilator 06/19/19 08:00 98.1 81 16 157/73 (101) 100 06/19/19 07:43 80 16 35 06/19/19 04:55 77 17 35 06/19/19 04:00 98.4 74 16 140/71 (94) 99 06/19/19 04:00 Mechanical Ventilator 06/19/19 04:00 35 06/19/19 03:39 72 06/19/19 02:30 74 17 35 06/19/19 00:00 70 06/19/19 00:00 Mechanical Ventilator 06/19/19 00:00 98.4 72 16 153/69 (97) 100 06/18/19 22:47 80 16 35 06/18/19 20:52 84 156/68 06/18/19 20:00 100.0 84 16 156/68 (97) 100 06/18/19 20:00 35 06/18/19 20:00 Mechanical Ventilator Intake and Output 06/18/19 06/19/19 19:00 07:00 Intake Total 690 ml 740 ml Output Total 1610 ml Balance -920 ml 740 ml Intake Free Water 150 ml 200 ml Tube Feeding 540 ml 540 ml Output Urine Total 1600 ml Stool Total 10 ml # Bowel Movements 1 Laboratory Tests 06/19/19 03:49: White Blood Count 16.5H, Red Blood Count 3.81L, Hemoglobin 10.1L, Hematocrit 32.8L, Mean Corpuscular Volume 86, Mean Corpuscular Hemoglobin 26.6L, Mean Corpuscular Hemoglobin Concent 30.9L, Red Cell Distribution Width 18.0H, Platelet Count 555H, Mean Platelet Volume 5.6L, Neutrophils (%) (Auto) 68.0, Lymphocytes (%) (Auto) 15.6L, Monocytes (%) (Auto) 6.7, Eosinophils (%) (Auto) 9.2H, Basophils (%) (Auto) 0.5, Sodium Level 147H, Potassium Level 4.2, Chloride Level 104, Carbon Dioxide Level 38H, Anion Gap 5, Blood Urea Nitrogen 94H, Creatinine 2.4H, Estimat Glomerular Filtration Rate 32.0, Glucose Level 157H, Uric Acid 8.0H, Calcium Level 9.6 Height (Feet): 5 Height (Inches): 4.00 Weight (Pounds): 162 General Appearance: lethargic EENT: other - on vent Cardiovascular: regular rhythm Respiratory/Chest: crackles/rales Abdomen: soft Extremities: no edema Neurologic: unresponsive Carmelo Frank MD June 19, 2019 19:47
[2019-06-19 20:00] VITALS: BP 143/52
[2019-06-19] MEDS: Atorvastatin 20mg tab GT SCH (20:29)
[2019-06-19] MEDS: Epoetin Alfa-EPBX (NON ESRD)4000 units/ml vial SUBQ SCH (20:52)
[2019-06-19] MEDS: Epoetin Alfa-EPBX (NON ESRD) 3000 units/ml vial SUBQ SCH (20:52)
--- NOTE | 2019-06-19 21:09 | NUR ---
NURSE NOTES: Discontinue left hand IV line. Asymptomatic, no bleeding and no s/sx of infection. Started right hand 24 g IV line with no s/sx if infection, no infiltration, intact, stabilize and flushed with Ns. Pt tolerated the procedure with no untoward behavior. Continue to monitor patient
[2019-06-20] VITALS: BP 153/84
[2019-06-20 04:00] VITALS: BP 149/77
[2019-06-20] MEDS: Ferrous Sulfate 300 MG/5 ML UDC GT SCH ×3 (05:24→21:33)
[2019-06-20] MEDS: NovoLOG Insulin Flexpen SUBQ SCH ×4 (05:25→21:36)
--- NOTE | 2019-06-20 07:20 | NUR ---
HAND-OFF: Report given to Ellen Go RN. Pt stable, eyes open and tracks when someone is present.
--- NOTE | 2019-06-20 07:21 | NUR ---
NURSE NOTES: Report received from TAMICA Hale. Patient alert, non verbal, responsive to tactile stimuli.Afebrile and V-pacing on the monitor.Isolation for VRE rectum.Pt on Trach and vent Flory 8, AC 16 VT 450, Fio2 35% Peep 5. No apparent acute distress. On GT feeding Nepro 45cc/hr and tolerate well with no residual at this time.Turned and repositioned and HOB elevated at 35 degree to prevent aspiration. Rectal tube in place draining watery stool. Right hand 24 eldon saline lock. Will continue same care plan.
[2019-06-20 08:00] VITALS: BP 149/77
--- NOTE | 2019-06-20 08:46 | Pulmonology Progress Note ---
Subjective ROS Limited/Unobtainable: Yes Constitutional: Denies: fever Gastrointestinal/Abdominal: Reports: diarrhea Allergies: Coded Allergies: No Known Allergies (Unverified , 06/10/19) Subjective reviewed care consultants noted poor renal function wbc noted Objective Last 24 Hour Vital Signs Date Time Temp Pulse Resp B/P (MAP) Pulse Ox O2 Delivery O2 Flow Rate FiO2 06/20/19 07:37 89 17 35 06/20/19 05:07 83 18 35 06/20/19 04:00 98.2 83 16 149/77 (101) 100 06/20/19 04:00 35 06/20/19 04:00 Mechanical Ventilator 06/20/19 03:34 81 06/20/19 03:03 81 17 35 06/20/19 01:25 76 16 35 06/20/19 00:22 74 06/20/19 00:00 98.2 79 16 153/84 (107) 100 06/20/19 00:00 Mechanical Ventilator 06/19/19 23:09 74 17 35 06/19/19 21:30 92 17 35 06/19/19 20:29 75 143/52 06/19/19 20:00 35 06/19/19 20:00 Mechanical Ventilator 06/19/19 20:00 98.2 75 16 143/52 (82) 100 06/19/19 19:01 76 06/19/19 18:58 73 16 35 06/19/19 17:15 76 16 35 06/19/19 16:12 99.7 06/19/19 16:00 Mechanical Ventilator 06/19/19 16:00 99.7 81 16 139/63 (88) 100 06/19/19 16:00 82 06/19/19 16:00 35 06/19/19 14:43 80 16 35 06/19/19 12:56 79 16 35 06/19/19 12:00 35 06/19/19 12:00 Mechanical Ventilator 06/19/19 12:00 75 06/19/19 12:00 99.5 78 16 145/62 (89) 100 06/19/19 11:04 75 16 35 06/19/19 09:42 77 19 35 06/19/19 09:08 81 157/73 Intake and Output 06/19/19 06/20/19 19:00 07:00 Intake Total 795 ml 740 ml Output Total 1150 ml 1600 ml Balance -355 ml -860 ml Intake Free Water 300 ml 200 ml Tube Feeding 495 ml 540 ml Output Urine Total 1100 ml 1450 ml Stool Total 50 ml 150 ml Objective WDWN NAD trach and gt clear breath sounds bilaterally without rhonchi or wheeze [id number] without MRG NABS nontender no HSM no CC noted edema better scrotal edema nonfocal reviewed and edited General Appearance: no acute distress HEENT: status post trach Abdomen: soft, non tender, other - GT Extremities: no edema Neurologic/Psychiatric: aphasia Musculoskeletal: atrophy Current Medications Medications (Trade) Dose Ordered Sig/Leonel Route PRN Reason Start Time Stop Time Status Last Admin Dose Admin Acetaminophen (Tylenol) 650 mg Q4H PRN NG Temp >100.5 06/10/19 21:00 07/10/19 20:59 06/19/19 15:42 Ascorbic Acid (Vitamin C) 500 mg DAILY GT 06/11/19 09:00 07/11/19 08:59 06/19/19 09:07 Atorvastatin Calcium (Lipitor) 40 mg BEDTIME GT 06/10/19 21:00 09/08/19 20:59 06/19/19 20:29 Dextrose (Dextrose 50%) 25 ml Q30M PRN IV Hypoglycemia 06/10/19 21:00 09/08/19 20:59 Dextrose (Dextrose 50%) 50 ml Q30M PRN IV Hypoglycemia 06/10/19 21:00 09/08/19 20:59 Epoetin Andreas (Epoetin Andreas-EPBX(NON ESRD)) 3,000 unit WED-WED-WED SUBQ 06/19/19 21:00 09/17/19 20:59 06/19/19 20:52 Epoetin Andreas (Epoetin Andreas-EPBX(NON ESRD)) 4,000 unit WED-WED-WED SUBQ 06/19/19 21:00 09/17/19 20:59 06/19/19 20:52 Ferrous Sulfate (Feosol) 300 mg EVERY 8 HOURS GT 06/18/19 22:00 09/09/19 08:59 06/20/19 05:24 Furosemide (Lasix) 80 mg EVERY 12 HOURS GT 06/15/19 21:00 07/15/19 20:59 06/19/19 20:30 Heparin Sodium (Porcine) (Heparin 5000 units/ml) 5,000 units EVERY 12 HOURS SUBQ 06/10/19 21:00 07/25/19 20:59 06/19/19 20:31 Insulin Aspart (NovoLOG) Q6HR SUBQ 06/11/19 12:00 09/08/19 21:59 06/20/19 05:25 Lansoprazole (Prevacid) 30 mg DAILY GT 06/20/19 09:00 07/20/19 08:59 Levofloxacin (Levaquin) 250 mg DAILY ORAL 06/14/19 10:45 06/21/19 10:44 06/19/19 09:07 Loperamide HCl (Imodium) 2 mg Q6H PRN NG Diarrhea 06/17/19 08:30 07/17/19 08:29 06/17/19 21:19 Metoprolol Tartrate (Lopressor) 100 mg Q12HR GT 06/10/19 09:00 09/08/19 08:59 06/19/19 20:29 Multivitamins (Multivitamins W/ Minerals 15ml Liquid) 15 ml DAILY GT 06/11/19 09:00 07/11/19 08:59 06/19/19 09:07 Potassium Chloride (K-Dur) 20 meq EVERY 12 HOURS GT 06/18/19 21:00 09/09/19 08:59 06/19/19 20:30 Vitamin B Complex/ Vit C/Folic Acid (Nephrovite) 1 tab DAILY GT 06/11/19 09:00 07/11/19 08:59 06/19/19 09:06 Assessment/Plan Assessment/Plan Anasarca Pulmonary edema scrotal edema Uremia Chronic respiratory failure on Ventilator Hypertension Diabetes Previous pneumonia Subdural hematoma Bedbound Tracheostomy dependent leukocytosis possible sepsis severe PCM anemia diarrhea negative Cdif PLAN vent management as is renal and ID noted antibiotics reviewed cultures noted monitor urine output and labs feeds as tolerated protein and supplement follow up closely and monitor dc planning impression, plan, and exam edited and reviewed in detail care discussed with Kain Tovar MD June 20, 2019 08:46
[2019-06-20] MEDS: Ascorbic Acid 500mg tab GT SCH (08:48)
[2019-06-20] MEDS: Nephrovite tab (Rena-Vite) GT SCH (08:49)
[2019-06-20] MEDS: Multivitamins W/Minerals 15 ML UDC GT SCH (08:50)
[2019-06-20] MEDS: Metoprolol Tartrate 100mg tab GT SCH ×2 (08:50→20:45)
[2019-06-20] MEDS: Furosemide 80mg tab GT SCH ×2 (08:50→20:47)
[2019-06-20] MEDS: Heparin 5000 units/ml inj SUBQ SCH ×2 (08:52→20:46)
--- NOTE | 2019-06-20 09:31 | NUR ---
RESPIRATORY NOTE: placed pt on CPAP PS8 fio2 35% for weaning. no signs of resp distress noted at this time. RN notified. will cont to monitor.
--- NOTE | 2019-06-20 09:33 | NUR ---
NURSE NOTES: Weaning started per protocol at 0930 , CPAP , PS 8, Fio2 35%
--- NOTE | 2019-06-20 10:40 | NUR ---
NURSE NOTES: Turned and repositioned. Relayed WBC result to Dr Paul with order to collect sputum for gram stain and culture.Dr Ramirez made aware WBC 19.3, Plt 606 , Potassium 5.2 , Uric acid 8.Will continue close monitoring.Kept clean and dry.
--- NOTE | 2019-06-20 10:40 | Infectious Diseases Prog Note ---
Assessment/Plan Assessment/Plan antibiotics : levoquin A 1. pneumonia with streptococcus, pseudomonas, stenotrophomonas COVID 19 test negative ,,20 2. respiratory failure 3. leucocytosis improving 4. diabetes mellitus 5. hypertension 6. renal failure improving 7. SDH 8. + blood cultures with coag neg staph likely contaminated 9. QT prolongation P 1. continue levoquin 3 more days 2. will follow up cultures Subjective ROS Limited/Unobtainable: Yes Allergies: Coded Allergies: No Known Allergies (Unverified , 06/10/19) Objective Vital Signs Last 24 Hour Vital Signs Date Time Temp Pulse Resp B/P (MAP) Pulse Ox O2 Delivery O2 Flow Rate FiO2 06/20/19 09:28 83 23 35 35 06/20/19 09:27 100 06/20/19 08:50 83 149/77 06/20/19 08:00 35 06/20/19 08:00 88 06/20/19 08:00 98.2 83 16 149/77 (101) 100 06/20/19 08:00 Mechanical Ventilator 06/20/19 07:37 89 17 35 06/20/19 05:07 83 18 35 06/20/19 04:00 98.2 83 16 149/77 (101) 100 06/20/19 04:00 35 06/20/19 04:00 Mechanical Ventilator 06/20/19 03:34 81 06/20/19 03:03 81 17 35 06/20/19 01:25 76 16 35 06/20/19 00:22 74 06/20/19 00:00 98.2 79 16 153/84 (107) 100 06/20/19 00:00 Mechanical Ventilator 06/19/19 23:09 74 17 35 06/19/19 21:30 92 17 35 06/19/19 20:29 75 143/52 06/19/19 20:00 35 06/19/19 20:00 Mechanical Ventilator 06/19/19 20:00 98.2 75 16 143/52 (82) 100 06/19/19 19:01 76 06/19/19 18:58 73 16 35 06/19/19 17:15 76 16 35 06/19/19 16:12 99.7 06/19/19 16:00 Mechanical Ventilator 06/19/19 16:00 99.7 81 16 139/63 (88) 100 06/19/19 16:00 82 06/19/19 16:00 35 06/19/19 14:43 80 16 35 06/19/19 12:56 79 16 35 06/19/19 12:00 35 06/19/19 12:00 Mechanical Ventilator 06/19/19 12:00 75 06/19/19 12:00 99.5 78 16 145/62 (89) 100 06/19/19 11:04 75 16 35 Height (Feet): 5 Height (Inches): 4.00 Weight (Pounds): 162 HEENT: status post trach Respiratory/Chest: lungs clear Cardiovascular: normal rate, regular rhythm, no gallop/murmur Abdomen: soft, non tender, other - GT Extremities: no edema Current Medications Medications (Trade) Dose Ordered Sig/Leonel Route PRN Reason Start Time Stop Time Status Last Admin Dose Admin Acetaminophen (Tylenol) 650 mg Q4H PRN NG Temp >100.5 06/10/19 21:00 07/10/19 20:59 06/19/19 15:42 Ascorbic Acid (Vitamin C) 500 mg DAILY GT 06/11/19 09:00 07/11/19 08:59 06/20/19 08:48 Atorvastatin Calcium (Lipitor) 40 mg BEDTIME GT 06/10/19 21:00 09/08/19 20:59 06/19/19 20:29 Dextrose (Dextrose 50%) 25 ml Q30M PRN IV Hypoglycemia 06/10/19 21:00 09/08/19 20:59 Dextrose (Dextrose 50%) 50 ml Q30M PRN IV Hypoglycemia 06/10/19 21:00 09/08/19 20:59 Epoetin Andreas (Epoetin Andreas-EPBX(NON ESRD)) 3,000 unit -WED SUBQ 06/19/19 21:00 09/17/19 20:59 06/19/19 20:52 Epoetin Andreas (Epoetin Andreas-EPBX(NON ESRD)) 4,000 unit SUBQ 06/19/19 21:00 09/17/19 20:59 06/19/19 20:52 Ferrous Sulfate (Feosol) 300 mg EVERY 8 HOURS GT 06/18/19 22:00 09/09/19 08:59 06/20/19 05:24 Furosemide (Lasix) 80 mg EVERY 12 HOURS GT 06/15/19 21:00 07/15/19 20:59 06/20/19 08:50 Heparin Sodium (Porcine) (Heparin 5000 units/ml) 5,000 units EVERY 12 HOURS SUBQ 06/10/19 21:00 07/25/19 20:59 06/20/19 08:52 Insulin Aspart (NovoLOG) Q6HR SUBQ 06/11/19 12:00 09/08/19 21:59 06/20/19 05:25 Lansoprazole (Prevacid) 30 mg DAILY GT 06/20/19 09:00 07/20/19 08:59 06/20/19 08:50 Levofloxacin (Levaquin) 250 mg DAILY ORAL 06/14/19 10:45 06/21/19 10:44 06/20/19 08:49 Loperamide HCl (Imodium) 2 mg Q6H PRN NG Diarrhea 06/17/19 08:30 07/17/19 08:29 06/17/19 21:19 Metoprolol Tartrate (Lopressor) 100 mg Q12HR GT 06/10/19 09:00 09/08/19 08:59 06/20/19 08:50 Multivitamins (Multivitamins W/ Minerals 15ml Liquid) 15 ml DAILY GT 06/11/19 09:00 07/11/19 08:59 06/20/19 08:50 Potassium Chloride (K-Dur) 20 meq EVERY 12 HOURS GT 06/18/19 21:00 09/09/19 08:59 06/20/19 08:50 Vitamin B Complex/ Vit C/Folic Acid (Nephrovite) 1 tab DAILY GT 06/11/19 09:00 07/11/19 08:59 06/20/19 08:49 Farnaz Lyle MD June 20, 2019 10:40
--- NOTE | 2019-06-20 10:57 | NUR ---
CASE MANAGEMENT: REVIEW SI: VENT DEPENDANT . PULMONARY EDEMA . T 98.2 HR 83 RR 16 BP 149/77 SAT 100% MECH VENT FIO2 35 LABS PENDING IS: LASIX 80MG GT Q12HR PROTONIX QD LEVAQUIN GT QD NOVOLOG SUBQ STEP DOWN UNIT STATUS DCP: PATIENT IS FROM [facility]
[2019-06-20 11:09] LABS: HEMATOCRIT 34.6 % (42.0-52.0); HEMOGLOBIN 10.8 G/DL (14.2-18.0); MEAN CORPUSCULAR VOLUME 85 FL (80-99); PLATELET COUNT 606 K/UL (150-450); RED BLOOD COUNT 4.08 M/UL (4.70-6.10); RED CELL DISTRIBUTION WIDTH 17.8 % (11.6-14.8); WHITE BLOOD COUNT 19.3 K/UL (4.8-10.8)
[2019-06-20 11:20] LABS: ANION GAP 6 mmol/L (5-15); BLOOD UREA NITROGEN 98 mg/dL (7-18); CALCIUM 9.7 MG/DL (8.5-10.1); CARBON DIOXIDE 35 MMOL/L (21-32); CHLORIDE 99 MMOL/L (98-107); CREATININE 2.5 MG/DL (0.55-1.30); POTASSIUM 5.2 MMOL/L (3.5-5.1); SODIUM 140 MMOL/L (136-145)
--- NOTE | 2019-06-20 11:52 | Surgery Progress Note ---
Surgery Progress Note Subjective Additional Comments worsening leukocytosis low grade fevers Objective Last 24 Hour Vital Signs Date Time Temp Pulse Resp B/P (MAP) Pulse Ox O2 Delivery O2 Flow Rate FiO2 06/20/19 09:28 83 23 35 35 06/20/19 09:27 100 06/20/19 08:50 83 149/77 06/20/19 08:00 35 06/20/19 08:00 88 06/20/19 08:00 98.2 83 16 149/77 (101) 100 06/20/19 08:00 Mechanical Ventilator 06/20/19 07:37 89 17 35 06/20/19 05:07 83 18 35 06/20/19 04:00 98.2 83 16 149/77 (101) 100 06/20/19 04:00 35 06/20/19 04:00 Mechanical Ventilator 06/20/19 03:34 81 06/20/19 03:03 81 17 35 06/20/19 01:25 76 16 35 06/20/19 00:22 74 06/20/19 00:00 98.2 79 16 153/84 (107) 100 06/20/19 00:00 Mechanical Ventilator 06/19/19 23:09 74 17 35 06/19/19 21:30 92 17 35 06/19/19 20:29 75 143/52 06/19/19 20:00 35 06/19/19 20:00 Mechanical Ventilator 06/19/19 20:00 98.2 75 16 143/52 (82) 100 06/19/19 19:01 76 06/19/19 18:58 73 16 35 06/19/19 17:15 76 16 35 06/19/19 16:12 99.7 06/19/19 16:00 Mechanical Ventilator 06/19/19 16:00 99.7 81 16 139/63 (88) 100 06/19/19 16:00 82 06/19/19 16:00 35 06/19/19 14:43 80 16 35 06/19/19 12:56 79 16 35 06/19/19 12:00 35 06/19/19 12:00 Mechanical Ventilator 06/19/19 12:00 75 06/19/19 12:00 99.5 78 16 145/62 (89) 100 I&O Intake and Output 06/19/19 06/20/19 19:00 07:00 Intake Total 795 ml 740 ml Output Total 1150 ml 1600 ml Balance -355 ml -860 ml Intake Free Water 300 ml 200 ml Tube Feeding 495 ml 540 ml Output Urine Total 1100 ml 1450 ml Stool Total 50 ml 150 ml Dressing: other Wound: other Cardiovascular: RSR Respiratory: decreased breath sounds Abdomen: soft, non-tender, present bowel sounds Extremities: no cyanosis, other Laboratory Tests Test 06/20/19 10:30 White Blood Count 19.3 K/UL (4.8-10.8) H Red Blood Count 4.08 M/UL (4.70-6.10) L Hemoglobin 10.8 G/DL (14.2-18.0) L Hematocrit 34.6 % (42.0-52.0) L Mean Corpuscular Volume 85 FL (80-99) Mean Corpuscular Hemoglobin 26.4 PG (27.0-31.0) L Mean Corpuscular Hemoglobin Concent 31.2 G/DL (32.0-36.0) L Red Cell Distribution Width 17.8 % (11.6-14.8) H Platelet Count 606 K/UL (150-450) H Mean Platelet Volume 5.6 FL (6.5-10.1) L Neutrophils (%) (Auto) % (45.0-75.0) Lymphocytes (%) (Auto) % (20.0-45.0) Monocytes (%) (Auto) % (1.0-10.0) Eosinophils (%) (Auto) % (0.0-3.0) Basophils (%) (Auto) % (0.0-2.0) Differential Total Cells Counted 100 Neutrophils % (Manual) 79 % (45-75) H Lymphocytes % (Manual) 12 % (20-45) L Monocytes % (Manual) 5 % (1-10) Eosinophils % (Manual) 3 % (0-3) Basophils % (Manual) 0 % (0-2) Myelocytes % 1 % (0-0) H Band Neutrophils 0 % (0-8) Platelet Estimate Increased H Platelet Morphology Normal Hypochromasia 1+ Anisocytosis 1+ Sodium Level 140 MMOL/L (136-145) Potassium Level 5.2 MMOL/L (3.5-5.1) H Chloride Level 99 MMOL/L (98-107) Carbon Dioxide Level 35 MMOL/L (21-32) H Anion Gap 6 mmol/L (5-15) Blood Urea Nitrogen 98 mg/dL (7-18) H Creatinine 2.5 MG/DL (0.55-1.30) H Estimat Glomerular Filtration Rate 30.5 mL/min (>60) Glucose Level 198 MG/DL (74-106) H Calcium Level 9.7 MG/DL (8.5-10.1) Plan Problems: (1) Decubitus skin ulcer Assessment & Plan: Pt presented on admission with generalized edema,grossly enlarged scrotum, contractures and multiple pressure injuries. Full thickness stage 4 pressure injury L Sacrum (L)1.6cm x (W)1.8cm x (D)0.3cm. Base of wound has 40% slough,60% beefy red. Borders are macerated. Small amt sanguineus exudate noted. Wound noted to be within field of previous wound. Periwound, skin tone is darker without induration or fluctuance. Scattered areas of hyperpigmentation from previous wounds noted to R and L Buttocks. Grossly enlarged and erythematous scrotum . Clusters of linear partial thickness ulcers noted at base of scrotum.moderate amt of serous exudate noted .Shaft of penis is grossly edematous. DTPI noted to medial L heel. Base of wound is maroon and fluctuant. (L)4cm x (W) 4.5cm. R heel is boggy with non-blanching erythema. Tx.Plan: Cleanse Sacral wound with Saline. Apply TheraHoney.Apply Moisture Barrier Paste periwound. Cover with Optifoam drsg. Change every 3 days and prn. Apply Moisture Barrier Paste to Bilat groin and scrotum with each Incontinence care. Cover each trochanter/Hips areas with Optifoam drsgs. Change every 7 days and prn. Apply Cavilon Skin Barrier to both heels. Cover each heel with Optifoam drsg. Change every 7 days and prn. Reposition at least every 2hours or as tolerated. Off-load heels with Pillow. APM/BECCA Mattress overlay. (2) Malnutrition Assessment & Plan: DAILY ESTIMATED NEEDS: Needs based on Renal, critical care, wound/ 62kg 22-28 kcals/kg 3013-1230 total kcals 1.25-1.5 (increase w/ renal improvement) g protein/kg 77-93 g total protein 20-25 mL/kg 9410-9887 total fluid mLs NUTRITION DIAGNOSIS: * Swallowing difficulty R/T respiratory failure, dysphagia as evidenced by trach/vent dep, PEG dep * Increased kcal/prot needs R/T wound healing as evidenced by admitted w/ multiple pressure injuries including full thickness at L sacrum. (CURRENT TF: Nepro @ 45ml/hr x 24 hrs) ENTERAL NUTRITION RECOMMENDATIONS: LOWER NEPRO to 40ml/hr x 24 hrs to provide 960ml, 1728 kcal,m 78g pro, 698ml free H2O * Rec lower TF to goal of 40ml/hr x24 hrs to not exceed est kcal needs (BG elevated 161-215) * HOB over 30 degrees/ water flush per MD ADDITIONAL RECOMMENDATIONS: * Per SNF: HT=64" TZ=227 lbs (Vs EMR wt of 150lbs) -> obtain re-calibrated bedscale wt * Monitor lytes and renal fxn, need to continue Nepro K 4.2, rec to maintain Nepro; lower rate to 40ml/hr * Monitor BGs- good BG control at thsi time * Wound healing: Continue Vit C, add Garo BID via PEG (3) Chronic respiratory failure Assessment & Plan: FINDINGS: Hardware: Tracheostomy tube terminates in the region of the upper/mid thoracic trachea. Lungs/pleura: Bilateral pleural effusions. Opacities throughout right greater than left lungs, concerning for pulmonary edema and/or infectious/inflammatory process. Heart/mediastinum: Mild enlargement of the cardiac silhouette. Atherosclerotic calcifications of the aorta. Left-sided pacemaker. Soft tissues: Unremarkable. Bones: No acute fracture. Degenerative changes of the spine Upper abdomen: Normal. IMPRESSION: Bilateral pleural effusions. Opacities throughout right greater than left lungs, concerning for pulmonary edema and/or infectious/inflammatory process. Trach Care (4) Anasarca (5) Leukocytosis Assessment & Plan: Patient identified to have significant leukocytosis, anemia , abnormal labs. Albumin low. Renal insufficiency. Anasarca. Microbiology noted Sputum sample resulted Antibiotics per infectious disease Wound evaluated likely etiology of patient's infectious source Will monitor closely and provide assistance thank you for let me participate in patient's care wbc persistent and elevated Levaq for 3 more days Jonathan Urisa June 20, 2019 11:52
[2019-06-20 12:00] VITALS: BP 152/75
--- NOTE | 2019-06-20 12:01 | NUR ---
NURSE NOTES: Pt noted with fever 100.8, cooling measure applied, will follow up.Turned and repositioned, mouth care done.HOB elevated to prevent aspiration.Sputum collected for gram stain culture and COV swab test done. Will continue same care plan
--- NOTE | 2019-06-20 14:15 | NUR ---
NURSE NOTES: Adls done,good pericare done. HOB elevated to prevent aspiration.No significant change at this time.Will continue same care plan
[2019-06-20 16:00] VITALS: BP 151/69
--- NOTE | 2019-06-20 16:12 | NUR ---
NURSE NOTES: ADLs done, mouth care provided and suctioned as tolerated.Low garde fever 99.1 cooling measure applied.Turned and repositioned, HOB elevated at 35 degree to prevent risks aspiration.Call light within easy reach.No significant change at this time.Sputum culture and Cov-19 screening still pending.Will continue same care plan
--- NOTE | 2019-06-20 16:30 | NUR ---
*-* INSURANCE *-* UPDATED CLINICALS HAVE BEEN FAXED TO: [facility] tracking# [id number] Omero Jiménez ph# [phone] ext [phone] fax# [phone]
--- NOTE | 2019-06-20 18:12 | NUR ---
NURSE NOTES: Patient asleep, no significant change.Sputum culture and Cov-19 test result still pending.Will continue same care plan
--- NOTE | 2019-06-20 19:03 | NUR ---
HAND-OFF: Report given to TAMICA Wang.
--- NOTE | 2019-06-20 19:10 | NUR ---
NURSE NOTES: Received report from Ellen Villanueva RN. Patient asleep, afebrile and has no respiratory distress noted. Tache to vent S8 AC16 TV 450 Fi02 35% peep 5 working well, intact and asymptomatic. On GT with Nephro at 45cc/hr infusing well. With Right hand 24 g IV line intact and asymptomatic. With kat catheter to urine bag draining well. With rectal tube in place draining well. Head of bed elevated. Bed rails are up and working. Per Endorsement, sputum culture and covid swab x 3 done awaiting for results. Continue to monitor patient
[2019-06-20 20:00] VITALS: BP 145/65
--- NOTE | 2019-06-20 20:37 | Nephrology Progress Note ---
Assessment/Plan Problem List: (1) Hypokalemia (2) CKD (chronic kidney disease) stage 5, GFR less than 15 ml/min (3) Anasarca (4) Pulmonary edema (5) Chronic respiratory failure (6) Uremia Plan continue lasix but change to gt, , kcl gfr 7, avoid nephrotoxins, has had good diuresis, fever, ID eval Subjective ROS Limited/Unobtainable: Yes Objective Objective Last 24 Hour Vital Signs Date Time Temp Pulse Resp B/P (MAP) Pulse Ox O2 Delivery O2 Flow Rate FiO2 06/20/19 19:11 85 17 35 06/20/19 16:00 99.1 85 16 151/69 (96) 100 06/20/19 16:00 Mechanical Ventilator 06/20/19 16:00 35 06/20/19 16:00 84 06/20/19 14:34 83 18 100 Mechanical Ventilator 35 06/20/19 14:34 83 18 35 06/20/19 12:00 35 06/20/19 12:00 100.8 83 16 152/75 (100) 100 06/20/19 12:00 82 06/20/19 12:00 Mechanical Ventilator 06/20/19 11:19 81 16 35 06/20/19 09:28 83 23 35 35 06/20/19 09:27 100 06/20/19 08:50 83 149/77 06/20/19 08:00 35 06/20/19 08:00 88 06/20/19 08:00 98.2 83 16 149/77 (101) 100 06/20/19 08:00 Mechanical Ventilator 06/20/19 07:37 89 17 35 06/20/19 05:07 83 18 35 06/20/19 04:00 98.2 83 16 149/77 (101) 100 06/20/19 04:00 35 06/20/19 04:00 Mechanical Ventilator 06/20/19 03:34 81 06/20/19 03:03 81 17 35 06/20/19 01:25 76 16 35 06/20/19 00:22 74 06/20/19 00:00 98.2 79 16 153/84 (107) 100 06/20/19 00:00 Mechanical Ventilator 06/19/19 23:09 74 17 35 06/19/19 21:30 92 17 35 Intake and Output 06/19/19 06/20/19 19:00 07:00 Intake Total 795 ml 740 ml Output Total 1150 ml 1600 ml Balance -355 ml -860 ml Intake Free Water 300 ml 200 ml Tube Feeding 495 ml 540 ml Output Urine Total 1100 ml 1450 ml Stool Total 50 ml 150 ml Laboratory Tests 06/20/19 10:30: White Blood Count 19.3H, Red Blood Count 4.08L, Hemoglobin 10.8L, Hematocrit 34.6L, Mean Corpuscular Volume 85, Mean Corpuscular Hemoglobin 26.4L, Mean Corpuscular Hemoglobin Concent 31.2L, Red Cell Distribution Width 17.8H, Platelet Count 606H, Mean Platelet Volume 5.6L, Neutrophils (%) (Auto) , Lymphocytes (%) (Auto) , Monocytes (%) (Auto) , Eosinophils (%) (Auto) , Basophils (%) (Auto) , Differential Total Cells Counted 100, Neutrophils % ( Manual) 79H, Lymphocytes % (Manual) 12L, Monocytes % (Manual) 5, Eosinophils % ( Manual) 3, Basophils % (Manual) 0, Myelocytes % 1H, Band Neutrophils 0, Platelet Estimate IncreasedH, Platelet Morphology Normal, Hypochromasia 1+, Anisocytosis 1+, Sodium Level 140, Potassium Level 5.2H, Chloride Level 99, Carbon Dioxide Level 35H, Anion Gap 6, Blood Urea Nitrogen 98H, Creatinine 2.5H , Estimat Glomerular Filtration Rate 30.5, Glucose Level 198H, Calcium Level 9.7 Height (Feet): 5 Height (Inches): 4.00 Weight (Pounds): 162 General Appearance: lethargic, other - on vent Cardiovascular: regular rhythm Respiratory/Chest: crackles/rales Extremities: no edema Neurologic: disoriented, unresponsive Carmelo Frank MD June 20, 2019 20:37
[2019-06-20] MEDS: Atorvastatin 20mg tab GT SCH (20:44)
[2019-06-21] VITALS: BP 124/56
--- NOTE | 2019-06-21 01:55 | NUR ---
NURSE NOTES: Patient asleep, afebrile and has no respiratory discomfort. No acute changes. Continue to monitor patient
[2019-06-21 04:00] VITALS: BP 153/63
[2019-06-21] MEDS: Ferrous Sulfate 300 MG/5 ML UDC GT SCH ×3 (06:14→23:00)
[2019-06-21] MEDS: NovoLOG Insulin Flexpen SUBQ SCH ×4 (06:16→23:38)
--- NOTE | 2019-06-21 07:00 | NUR ---
NURSE NOTES: received patient report from marino rn. patient is on bed awake, not in acute in acute distress. on vent at prescribed rate. bed is low and locked for safety. will follow plan of care.
--- NOTE | 2019-06-21 07:20 | NUR ---
HAND-OFF: Report given to May Mallory RN. Pt stable and asleep in bed.
[2019-06-21 07:23] LABS: ANION GAP 14 mmol/L (5-15); BLOOD UREA NITROGEN 109 mg/dL (7-18); CALCIUM 10.4 MG/DL (8.5-10.1); CARBON DIOXIDE 27 MMOL/L (21-32); CHLORIDE 96 MMOL/L (98-107); CREATININE 2.7 MG/DL (0.55-1.30); SODIUM 137 MMOL/L (136-145)
[2019-06-21 08:00] VITALS: BP 141/63
[2019-06-21 08:01] LABS: POTASSIUM 6.5 MMOL/L (3.5-5.1)
[2019-06-21] MEDS: Ascorbic Acid 500mg tab GT SCH (09:00)
[2019-06-21] MEDS: Metoprolol Tartrate 100mg tab GT SCH ×2 (09:01→20:57)
[2019-06-21] MEDS: Multivitamins W/Minerals 15 ML UDC GT SCH (09:01)
[2019-06-21] MEDS: Nephrovite tab (Rena-Vite) GT SCH (09:01)
[2019-06-21] MEDS: Furosemide 80mg tab GT SCH (09:01)
[2019-06-21] MEDS: Heparin 5000 units/ml inj SUBQ SCH ×2 (09:02→20:47)
--- NOTE | 2019-06-21 09:23 | Pulmonology Progress Note ---
Subjective ROS Limited/Unobtainable: Yes Constitutional: Denies: fever Gastrointestinal/Abdominal: Reports: diarrhea Allergies: Coded Allergies: No Known Allergies (Unverified , 06/10/19) Subjective reviewed care consultants noted poor renal function wbc now worse Objective Last 24 Hour Vital Signs Date Time Temp Pulse Resp B/P (MAP) Pulse Ox O2 Delivery O2 Flow Rate FiO2 06/21/19 09:01 87 141/63 06/21/19 08:00 97.3 85 16 141/63 (89) 100 06/21/19 07:58 83 18 35 06/21/19 04:00 35 06/21/19 04:00 97.3 81 16 153/63 (93) 100 06/21/19 04:00 Mechanical Ventilator 06/21/19 03:28 82 06/21/19 03:22 83 18 35 06/21/19 00:00 Mechanical Ventilator 06/21/19 00:00 97.7 68 16 124/56 (78) 100 06/20/19 23:44 71 06/20/19 23:08 73 16 35 06/20/19 20:45 85 145/65 06/20/19 20:00 Mechanical Ventilator 06/20/19 20:00 35 06/20/19 20:00 98.1 84 16 145/65 (91) 100 06/20/19 19:31 84 06/20/19 19:11 85 17 35 06/20/19 16:00 99.1 85 16 151/69 (96) 100 06/20/19 16:00 Mechanical Ventilator 06/20/19 16:00 35 06/20/19 16:00 84 06/20/19 14:34 83 18 100 Mechanical Ventilator 35 06/20/19 14:34 83 18 35 06/20/19 12:00 35 06/20/19 12:00 100.8 83 16 152/75 (100) 100 06/20/19 12:00 82 06/20/19 12:00 Mechanical Ventilator 06/20/19 11:19 81 16 35 06/20/19 09:28 83 23 35 35 06/20/19 09:27 100 Intake and Output 06/20/19 06/21/19 19:00 07:00 Intake Total 700 ml 640 ml Output Total 1220 ml 1150 ml Balance -520 ml -510 ml Intake Free Water 160 ml 100 ml Tube Feeding 540 ml 540 ml Output Urine Total 1200 ml 1000 ml Stool Total 20 ml 150 ml Objective WDWN NAD trach and gt clear breath sounds bilaterally without rhonchi or wheeze [id number] without MRG NABS nontender no HSM no CC noted edema better scrotal edema nonfocal reviewed and edited General Appearance: no acute distress HEENT: status post trach Abdomen: soft, non tender, other - GT Extremities: no edema Neurologic/Psychiatric: aphasia Musculoskeletal: atrophy Laboratory Tests 06/20/19 10:30: White Blood Count 19.3H, Red Blood Count 4.08L, Hemoglobin 10.8L, Hematocrit 34.6L, Mean Corpuscular Volume 85, Mean Corpuscular Hemoglobin 26.4L, Mean Corpuscular Hemoglobin Concent 31.2L, Red Cell Distribution Width 17.8H, Platelet Count 606H, Mean Platelet Volume 5.6L, Neutrophils (%) (Auto) , Lymphocytes (%) (Auto) , Monocytes (%) (Auto) , Eosinophils (%) (Auto) , Basophils (%) (Auto) , Differential Total Cells Counted 100, Neutrophils % ( Manual) 79H, Lymphocytes % (Manual) 12L, Monocytes % (Manual) 5, Eosinophils % ( Manual) 3, Basophils % (Manual) 0, Myelocytes % 1H, Band Neutrophils 0, Platelet Estimate IncreasedH, Platelet Morphology Normal, Hypochromasia 1+, Anisocytosis 1+, Sodium Level 140, Potassium Level 5.2H, Chloride Level 99, Carbon Dioxide Level 35H, Anion Gap 6, Blood Urea Nitrogen 98H, Creatinine 2.5H , Estimat Glomerular Filtration Rate 30.5, Glucose Level 198H, Calcium Level 9.7 06/21/19 03:38: Sodium Level 137, Potassium Level 6.5*H, Chloride Level 96L, Carbon Dioxide Level 27, Anion Gap 14, Blood Urea Nitrogen 109H, Creatinine 2.7H, Estimat Glomerular Filtration Rate 27.9, Glucose Level 183H, Calcium Level 10.4H Current Medications Medications (Trade) Dose Ordered Sig/Leonel Route PRN Reason Start Time Stop Time Status Last Admin Dose Admin Acetaminophen (Tylenol) 650 mg Q4H PRN NG Temp >100.5 06/10/19 21:00 07/10/19 20:59 06/19/19 15:42 Ascorbic Acid (Vitamin C) 500 mg DAILY GT 06/11/19 09:00 07/11/19 08:59 06/21/19 09:00 Atorvastatin Calcium (Lipitor) 40 mg BEDTIME GT 06/10/19 21:00 09/08/19 20:59 06/20/19 20:44 Dextrose (Dextrose 50%) 25 ml Q30M PRN IV Hypoglycemia 06/10/19 21:00 09/08/19 20:59 Dextrose (Dextrose 50%) 50 ml Q30M PRN IV Hypoglycemia 06/10/19 21:00 09/08/19 20:59 Epoetin Andreas (Epoetin Andreas-EPBX(NON ESRD)) 3,000 unit SUBQ 06/19/19 21:00 09/17/19 20:59 06/19/19 20:52 Epoetin Andreas (Epoetin Andreas-EPBX(NON ESRD)) 4,000 unit WED- SUBQ 06/19/19 21:00 09/17/19 20:59 06/19/19 20:52 Ferrous Sulfate (Feosol) 300 mg EVERY 8 HOURS GT 06/18/19 22:00 09/09/19 08:59 06/21/19 06:14 Furosemide (Lasix) 80 mg EVERY 12 HOURS GT 06/15/19 21:00 07/15/19 20:59 06/21/19 09:01 Heparin Sodium (Porcine) (Heparin 5000 units/ml) 5,000 units EVERY 12 HOURS SUBQ 06/10/19 21:00 07/25/19 20:59 06/21/19 09:02 Insulin Aspart (NovoLOG) Q6HR SUBQ 06/11/19 12:00 09/08/19 21:59 06/21/19 06:16 Lansoprazole (Prevacid) 30 mg DAILY GT 06/20/19 09:00 07/20/19 08:59 06/21/19 09:01 Levofloxacin (Levaquin) 250 mg DAILY ORAL 06/14/19 10:45 06/21/19 10:44 06/21/19 09:01 Loperamide HCl (Imodium) 2 mg Q6H PRN NG Diarrhea 06/17/19 08:30 07/17/19 08:29 06/17/19 21:19 Metoprolol Tartrate (Lopressor) 100 mg Q12HR GT 06/10/19 09:00 09/08/19 08:59 06/21/19 09:01 Multivitamins (Multivitamins W/ Minerals 15ml Liquid) 15 ml DAILY GT 06/11/19 09:00 07/11/19 08:59 06/21/19 09:01 Vitamin B Complex/ Vit C/Folic Acid (Nephrovite) 1 tab DAILY GT 06/11/19 09:00 07/11/19 08:59 06/21/19 09:01 Assessment/Plan Assessment/Plan Anasarca Pulmonary edema scrotal edema Uremia Chronic respiratory failure on Ventilator Hypertension Diabetes Previous pneumonia Subdural hematoma Bedbound Tracheostomy dependent leukocytosis possible sepsis severe PCM anemia diarrhea negative Cdif PLAN vent management as is renal and ID noted antibiotics reviewed cultures noted monitor urine output and labs feeds as tolerated protein and supplement follow up closely and monitor hold dc pending improvement in wbc impression, plan, and exam edited and reviewed in detail care discussed with Kain Tovar MD June 21, 2019 09:23
--- NOTE | 2019-06-21 10:15 | NUR ---
RD ASSESSMENT & RECOMMENDATIONS SEE CARE ACTIVITY FOR COMPLETE ASSESSMENT DAILY ESTIMATED NEEDS: Needs based on Renal, critical care, wound/ 62kg 22-28 kcals/kg 2716-5847 total kcals 1-1.25 (increase w/ renal improvement) g protein/kg 62-78 g total protein 20-25 mL/kg 4924-3835 total fluid mLs NUTRITION DIAGNOSIS: * Swallowing difficulty R/T respiratory failure, dysphagia as evidenced by trach/vent dep, PEG dep * Increased kcal/prot needs R/T wound healing as evidenced by admitted w/ multiple pressure injuries including full thickness at L sacrum. CURRENT TF:Nepro @ 45ml/hr x 24 hrs ENTERAL NUTRITION RECOMMENDATIONS: LOWER NEPRO to 40ml/hr x 24 hrs to provide 960ml, 1728 kcal,m 78g pro, 698ml free H2O * Rec lower TF to goal of 40ml/hr x24 hrs to not exceed est kcal needs (BG elevated) * HOB over 30 degrees/ water flush per MD ADDITIONAL RECOMMENDATIONS: * Per SNF: HT=64" DQ=925 lbs (Vs EMR wt of 150lbs) -> obtain re-calibrated bedscale wt * Monitor lytes and renal fxn, need to continue Nepro K critical, maintain Nepro; lower rate to 40ml/hr * BG elevated, continue bed side BG w/ niss * Wound healing: Vit C dose per nephro , add Garo BID via PEG
--- NOTE | 2019-06-21 10:19 | Infectious Diseases Prog Note ---
Assessment/Plan Assessment/Plan antibiotics : levoquin A 1. pneumonia with streptococcus, pseudomonas, stenotrophomonas COVID 19 test negative ,,20 2. respiratory failure 3. leucocytosis increased 4. diabetes mellitus 5. hypertension 6. renal failure improving 7. SDH 8. + blood cultures with coag neg staph likely contaminated 9. QT prolongation P 1. continue levoquin 2 more days 2. will follow up cultures 3. sputum cultures Subjective ROS Limited/Unobtainable: Yes Allergies: Coded Allergies: No Known Allergies (Unverified , 06/10/19) Objective Vital Signs Last 24 Hour Vital Signs Date Time Temp Pulse Resp B/P (MAP) Pulse Ox O2 Delivery O2 Flow Rate FiO2 06/21/19 09:01 87 141/63 06/21/19 08:00 35 06/21/19 08:00 97.3 85 16 141/63 (89) 100 06/21/19 07:58 83 18 35 06/21/19 04:00 35 06/21/19 04:00 97.3 81 16 153/63 (93) 100 06/21/19 04:00 Mechanical Ventilator 06/21/19 03:28 82 06/21/19 03:22 83 18 35 06/21/19 00:00 Mechanical Ventilator 06/21/19 00:00 97.7 68 16 124/56 (78) 100 06/20/19 23:44 71 06/20/19 23:08 73 16 35 06/20/19 20:45 85 145/65 06/20/19 20:00 Mechanical Ventilator 06/20/19 20:00 35 06/20/19 20:00 98.1 84 16 145/65 (91) 100 06/20/19 19:31 84 06/20/19 19:11 85 17 35 06/20/19 16:00 99.1 85 16 151/69 (96) 100 06/20/19 16:00 Mechanical Ventilator 06/20/19 16:00 35 06/20/19 16:00 84 06/20/19 14:34 83 18 100 Mechanical Ventilator 35 06/20/19 14:34 83 18 35 06/20/19 12:00 35 06/20/19 12:00 100.8 83 16 152/75 (100) 100 06/20/19 12:00 82 06/20/19 12:00 Mechanical Ventilator 06/20/19 11:19 81 16 35 Height (Feet): 5 Height (Inches): 4.00 Weight (Pounds): 150 HEENT: status post trach Respiratory/Chest: lungs clear Cardiovascular: normal rate, regular rhythm, no gallop/murmur Abdomen: soft, non tender, other - GT Extremities: no edema Laboratory Tests Test 06/20/19 10:30 06/21/19 03:38 White Blood Count 19.3 K/UL (4.8-10.8) H Red Blood Count 4.08 M/UL (4.70-6.10) L Hemoglobin 10.8 G/DL (14.2-18.0) L Hematocrit 34.6 % (42.0-52.0) L Mean Corpuscular Volume 85 FL (80-99) Mean Corpuscular Hemoglobin 26.4 PG (27.0-31.0) L Mean Corpuscular Hemoglobin Concent 31.2 G/DL (32.0-36.0) L Red Cell Distribution Width 17.8 % (11.6-14.8) H Platelet Count 606 K/UL (150-450) H Mean Platelet Volume 5.6 FL (6.5-10.1) L Neutrophils (%) (Auto) % (45.0-75.0) Lymphocytes (%) (Auto) % (20.0-45.0) Monocytes (%) (Auto) % (1.0-10.0) Eosinophils (%) (Auto) % (0.0-3.0) Basophils (%) (Auto) % (0.0-2.0) Differential Total Cells Counted 100 Neutrophils % (Manual) 79 % (45-75) H Lymphocytes % (Manual) 12 % (20-45) L Monocytes % (Manual) 5 % (1-10) Eosinophils % (Manual) 3 % (0-3) Basophils % (Manual) 0 % (0-2) Myelocytes % 1 % (0-0) H Band Neutrophils 0 % (0-8) Platelet Estimate Increased H Platelet Morphology Normal Hypochromasia 1+ Anisocytosis 1+ Sodium Level 140 MMOL/L (136-145) 137 MMOL/L (136-145) Potassium Level 5.2 MMOL/L (3.5-5.1) H 6.5 MMOL/L (3.5-5.1) *H Chloride Level 99 MMOL/L (98-107) 96 MMOL/L (98-107) L Carbon Dioxide Level 35 MMOL/L (21-32) H 27 MMOL/L (21-32) Anion Gap 6 mmol/L (5-15) 14 mmol/L (5-15) Blood Urea Nitrogen 98 mg/dL (7-18) H 109 mg/dL (7-18) H Creatinine 2.5 MG/DL (0.55-1.30) H 2.7 MG/DL (0.55-1.30) H Estimat Glomerular Filtration Rate 30.5 mL/min (>60) 27.9 mL/min (>60) Glucose Level 198 MG/DL (74-106) H 183 MG/DL (74-106) H Calcium Level 9.7 MG/DL (8.5-10.1) 10.4 MG/DL (8.5-10.1) H Current Medications Medications (Trade) Dose Ordered Sig/Leonel Route PRN Reason Start Time Stop Time Status Last Admin Dose Admin Acetaminophen (Tylenol) 650 mg Q4H PRN NG Temp >100.5 06/10/19 21:00 07/10/19 20:59 06/19/19 15:42 Ascorbic Acid (Vitamin C) 500 mg DAILY GT 06/11/19 09:00 07/11/19 08:59 06/21/19 09:00 Atorvastatin Calcium (Lipitor) 40 mg BEDTIME GT 06/10/19 21:00 09/08/19 20:59 06/20/19 20:44 Dextrose (Dextrose 50%) 25 ml Q30M PRN IV Hypoglycemia 06/10/19 21:00 09/08/19 20:59 Dextrose (Dextrose 50%) 50 ml Q30M PRN IV Hypoglycemia 06/10/19 21:00 09/08/19 20:59 Epoetin Andreas (Epoetin Andreas-EPBX(NON ESRD)) 3,000 unit -WED SUBQ 06/19/19 21:00 09/17/19 20:59 06/19/19 20:52 Epoetin Andreas (Epoetin Andreas-EPBX(NON ESRD)) 4,000 unit SUBQ 06/19/19 21:00 09/17/19 20:59 06/19/19 20:52 Ferrous Sulfate (Feosol) 300 mg EVERY 8 HOURS GT 06/18/19 22:00 09/09/19 08:59 06/21/19 06:14 Furosemide (Lasix) 80 mg EVERY 12 HOURS GT 06/15/19 21:00 07/15/19 20:59 06/21/19 09:01 Heparin Sodium (Porcine) (Heparin 5000 units/ml) 5,000 units EVERY 12 HOURS SUBQ 06/10/19 21:00 07/25/19 20:59 06/21/19 09:02 Insulin Aspart (NovoLOG) Q6HR SUBQ 06/11/19 12:00 09/08/19 21:59 06/21/19 06:16 Lansoprazole (Prevacid) 30 mg DAILY GT 06/20/19 09:00 07/20/19 08:59 06/21/19 09:01 Levofloxacin (Levaquin) 250 mg DAILY ORAL 06/14/19 10:45 06/21/19 10:44 06/21/19 09:01 Loperamide HCl (Imodium) 2 mg Q6H PRN NG Diarrhea 06/17/19 08:30 07/17/19 08:29 06/17/19 21:19 Metoprolol Tartrate (Lopressor) 100 mg Q12HR GT 06/10/19 09:00 09/08/19 08:59 06/21/19 09:01 Multivitamins (Multivitamins W/ Minerals 15ml Liquid) 15 ml DAILY GT 06/11/19 09:00 07/11/19 08:59 06/21/19 09:01 Vitamin B Complex/ Vit C/Folic Acid (Nephrovite) 1 tab DAILY GT 06/11/19 09:00 07/11/19 08:59 06/21/19 09:01 Farnaz Lyle MD June 21, 2019 10:19
--- NOTE | 2019-06-21 11:28 | Surgery Progress Note ---
Surgery Progress Note Subjective Additional Comments no acute events Objective Last 24 Hour Vital Signs Date Time Temp Pulse Resp B/P (MAP) Pulse Ox O2 Delivery O2 Flow Rate FiO2 06/21/19 09:01 87 141/63 06/21/19 08:00 Mechanical Ventilator 35.0 06/21/19 08:00 35 06/21/19 08:00 97.3 85 16 141/63 (89) 100 06/21/19 07:58 83 18 35 06/21/19 07:43 88 06/21/19 04:00 35 06/21/19 04:00 97.3 81 16 153/63 (93) 100 06/21/19 04:00 Mechanical Ventilator 06/21/19 03:28 82 06/21/19 03:22 83 18 35 06/21/19 00:00 Mechanical Ventilator 06/21/19 00:00 97.7 68 16 124/56 (78) 100 06/20/19 23:44 71 06/20/19 23:08 73 16 35 06/20/19 20:45 85 145/65 06/20/19 20:00 Mechanical Ventilator 06/20/19 20:00 35 06/20/19 20:00 98.1 84 16 145/65 (91) 100 06/20/19 19:31 84 06/20/19 19:11 85 17 35 06/20/19 16:00 99.1 85 16 151/69 (96) 100 06/20/19 16:00 Mechanical Ventilator 06/20/19 16:00 35 06/20/19 16:00 84 06/20/19 14:34 83 18 100 Mechanical Ventilator 35 06/20/19 14:34 83 18 35 06/20/19 12:00 35 06/20/19 12:00 100.8 83 16 152/75 (100) 100 06/20/19 12:00 82 06/20/19 12:00 Mechanical Ventilator I&O Intake and Output 06/20/19 06/21/19 19:00 07:00 Intake Total 700 ml 640 ml Output Total 1220 ml 1150 ml Balance -520 ml -510 ml Intake Free Water 160 ml 100 ml Tube Feeding 540 ml 540 ml Output Urine Total 1200 ml 1000 ml Stool Total 20 ml 150 ml Dressing: other Wound: other Drains: other Cardiovascular: RSR Respiratory: decreased breath sounds Abdomen: soft, non-tender, present bowel sounds Extremities: no cyanosis Laboratory Tests Test 06/21/19 03:38 Sodium Level 137 MMOL/L (136-145) Potassium Level 6.5 MMOL/L (3.5-5.1) *H Chloride Level 96 MMOL/L (98-107) L Carbon Dioxide Level 27 MMOL/L (21-32) Anion Gap 14 mmol/L (5-15) Blood Urea Nitrogen 109 mg/dL (7-18) H Creatinine 2.7 MG/DL (0.55-1.30) H Estimat Glomerular Filtration Rate 27.9 mL/min (>60) Glucose Level 183 MG/DL (74-106) H Calcium Level 10.4 MG/DL (8.5-10.1) H Plan Problems: (1) Decubitus skin ulcer Assessment & Plan: Pt presented on admission with generalized edema,grossly enlarged scrotum, contractures and multiple pressure injuries. Full thickness stage 4 pressure injury L Sacrum (L)1.6cm x (W)1.8cm x (D)0.3cm. Base of wound has 40% slough,60% beefy red. Borders are macerated. Small amt sanguineus exudate noted. Wound noted to be within field of previous wound. Periwound, skin tone is darker without induration or fluctuance. Scattered areas of hyperpigmentation from previous wounds noted to R and L Buttocks. Grossly enlarged and erythematous scrotum . Clusters of linear partial thickness ulcers noted at base of scrotum.moderate amt of serous exudate noted .Shaft of penis is grossly edematous. DTPI noted to medial L heel. Base of wound is maroon and fluctuant. (L)4cm x (W) 4.5cm. R heel is boggy with non-blanching erythema. Tx.Plan: Cleanse Sacral wound with Saline. Apply TheraHoney.Apply Moisture Barrier Paste periwound. Cover with Optifoam drsg. Change every 3 days and prn. Apply Moisture Barrier Paste to Bilat groin and scrotum with each Incontinence care. Cover each trochanter/Hips areas with Optifoam drsgs. Change every 7 days and prn. Apply Cavilon Skin Barrier to both heels. Cover each heel with Optifoam drsg. Change every 7 days and prn. Reposition at least every 2hours or as tolerated. Off-load heels with Pillow. APM/BECCA Mattress overlay. (2) Malnutrition Assessment & Plan: DAILY ESTIMATED NEEDS: Needs based on Renal, critical care, wound/ 62kg 22-28 kcals/kg 2050-9644 total kcals 1-1.25 (increase w/ renal improvement) g protein/kg 62-78 g total protein 20-25 mL/kg 7810-2895 total fluid mLs NUTRITION DIAGNOSIS: * Swallowing difficulty R/T respiratory failure, dysphagia as evidenced by trach/vent dep, PEG dep * Increased kcal/prot needs R/T wound healing as evidenced by admitted w/ multiple pressure injuries including full thickness at L sacrum. CURRENT TF:Nepro @ 45ml/hr x 24 hrs ENTERAL NUTRITION RECOMMENDATIONS: LOWER NEPRO to 40ml/hr x 24 hrs to provide 960ml, 1728 kcal,m 78g pro, 698ml free H2O * Rec lower TF to goal of 40ml/hr x24 hrs to not exceed est kcal needs (BG elevated) * HOB over 30 degrees/ water flush per MD ADDITIONAL RECOMMENDATIONS: * Per SNF: HT=64" GG=905 lbs (Vs EMR wt of 150lbs) -> obtain re-calibrated bedscale wt * Monitor lytes and renal fxn, need to continue Nepro K critical, maintain Nepro; lower rate to 40ml/hr * BG elevated, continue bed side BG w/ niss * Wound healing: Vit C dose per nephro , add Garo BID via PEG (3) Chronic respiratory failure Assessment & Plan: FINDINGS: Hardware: Tracheostomy tube terminates in the region of the upper/mid thoracic trachea. Lungs/pleura: Bilateral pleural effusions. Opacities throughout right greater than left lungs, concerning for pulmonary edema and/or infectious/inflammatory process. Heart/mediastinum: Mild enlargement of the cardiac silhouette. Atherosclerotic calcifications of the aorta. Left-sided pacemaker. Soft tissues: Unremarkable. Bones: No acute fracture. Degenerative changes of the spine Upper abdomen: Normal. IMPRESSION: Bilateral pleural effusions. Opacities throughout right greater than left lungs, concerning for pulmonary edema and/or infectious/inflammatory process. Trach Care (4) Anasarca (5) Leukocytosis Assessment & Plan: Patient identified to have significant leukocytosis, anemia , abnormal labs. Albumin low. Renal insufficiency. Anasarca. Microbiology noted Sputum sample resulted Antibiotics per infectious disease Wound evaluated likely etiology of patient's infectious source Will monitor closely and provide assistance thank you for let me participate in patient's care wbc persistent and elevated Levaq for 3 more days Additional Comments pending labs Jonathan Urias June 21, 2019 11:28
--- NOTE | 2019-06-21 11:43 | NUR ---
CASE MANAGEMENT: REVIEW SI: VENT DEPENDANT . PULMONARY EDEMA . T 97.3 HR 85 RR 16 BP 153/63 SAT 100% MECH VENT FIO2 35 K+ 6.5 BUN 109 CR 2.7 PENDING REPEAT COVID IS: KAYEXALATE 30MG PO X1 LASIX 80MG GT Q12HR PROTONIX QD LEVAQUIN GT QD NOVOLOG SUBQ STEP DOWN UNIT STATUS DCP: PATIENT IS FROM [facility]
[2019-06-21 12:00] VITALS: BP 139/67
[2019-06-21] MEDS ORDERED: Sodium Polystyrene Sulfonate 15gm Powder ORAL SCH (12:00)
--- NOTE | 2019-06-21 13:38 | NUR ---
CASE MANAGEMENT: DCP UPON DISCHARGE PATIENT WILL TRANSFER BACK TO [facility] PER [facility] ROOM ASSIGNMENT WILL BE PROVIDED UPON DISCHARGE Addendum: 06/21/19 at 1407 by BEAU REGALADO CM UPDATED CLINICALS FAXED. SECOND COVID RESULTS PENDING Addendum: 06/21/19 at 1445 by BEAU REGALADO CM PRE [facility] / [facility] [phone] PATIENT WILL BE ASSIGNED TO RM# [id number]
[2019-06-21 16:00] VITALS: BP 122/54
--- NOTE | 2019-06-21 16:08 | NUR ---
*-* INSURANCE *-* UPDATED CLINICALS HAVE BEEN FAXED TO: [facility] tracking# [id number] Omero Jiménez ph# [phone] ext [phone] fax# [phone]
[2019-06-21 18:30] LABS: ANION GAP 8 mmol/L (5-15); BLOOD UREA NITROGEN 119 mg/dL (7-18); CALCIUM 9.7 MG/DL (8.5-10.1); CARBON DIOXIDE 34 MMOL/L (21-32); CHLORIDE 98 MMOL/L (98-107); CREATININE 2.9 MG/DL (0.55-1.30); POTASSIUM 4.8 MMOL/L (3.5-5.1); SODIUM 140 MMOL/L (136-145)
--- NOTE | 2019-06-21 19:05 | Nephrology Progress Note ---
Assessment/Plan Problem List: (1) Hypokalemia (2) CKD (chronic kidney disease) stage 5, GFR less than 15 ml/min (3) Anasarca (4) Pulmonary edema (5) Chronic respiratory failure (6) Uremia (7) Hyperkalemia (8) Malnutrition (9) Leukocytosis Plan c, , kcl gfr 7, avoid nephrotoxins, has had good diuresis, fever, on broad spectrum atb, bun higher dc lasix for now, high K treated, better Subjective ROS Limited/Unobtainable: Yes Objective Objective Last 24 Hour Vital Signs Date Time Temp Pulse Resp B/P (MAP) Pulse Ox O2 Delivery O2 Flow Rate FiO2 06/21/19 16:00 98.8 107 22 122/54 (76) 99 06/21/19 16:00 91 06/21/19 16:00 Mechanical Ventilator 35.0 06/21/19 16:00 35 06/21/19 15:58 105 18 35 06/21/19 12:00 35 06/21/19 12:00 97.7 90 16 139/67 (91) 100 06/21/19 12:00 Mechanical Ventilator 35.0 06/21/19 11:54 82 06/21/19 11:05 81 18 35 06/21/19 09:01 87 141/63 06/21/19 08:00 Mechanical Ventilator 35.0 06/21/19 08:00 35 06/21/19 08:00 97.3 85 16 141/63 (89) 100 06/21/19 07:58 83 18 35 06/21/19 07:43 88 06/21/19 04:00 35 06/21/19 04:00 97.3 81 16 153/63 (93) 100 06/21/19 04:00 Mechanical Ventilator 06/21/19 03:28 82 06/21/19 03:22 83 18 35 06/21/19 00:00 Mechanical Ventilator 06/21/19 00:00 97.7 68 16 124/56 (78) 100 06/20/19 23:44 71 06/20/19 23:08 73 16 35 06/20/19 20:45 85 145/65 06/20/19 20:00 Mechanical Ventilator 06/20/19 20:00 35 06/20/19 20:00 98.1 84 16 145/65 (91) 100 06/20/19 19:31 84 06/20/19 19:11 85 17 35 Intake and Output 06/20/19 06/21/19 19:00 07:00 Intake Total 700 ml 640 ml Output Total 1220 ml 1150 ml Balance -520 ml -510 ml Intake Free Water 160 ml 100 ml Tube Feeding 540 ml 540 ml Output Urine Total 1200 ml 1000 ml Stool Total 20 ml 150 ml Laboratory Tests 06/21/19 03:38: Sodium Level 137, Potassium Level 6.5*H, Chloride Level 96L, Carbon Dioxide Level 27, Anion Gap 14, Blood Urea Nitrogen 109H, Creatinine 2.7H, Estimat Glomerular Filtration Rate 27.9, Glucose Level 183H, Calcium Level 10.4H 06/21/19 17:35: Sodium Level 140, Potassium Level 4.8, Chloride Level 98, Carbon Dioxide Level 34H, Anion Gap 8, Blood Urea Nitrogen 119H, Creatinine 2.9H, Estimat Glomerular Filtration Rate 25.7, Glucose Level 188H, Calcium Level 9.7 Height (Feet): 5 Height (Inches): 4.00 Weight (Pounds): 150 General Appearance: lethargic, other - on vent Cardiovascular: regular rhythm Respiratory/Chest: rhonchi - bilaterally Abdomen: soft Extremities: no edema Neurologic: unresponsive Carmelo Frank MD June 21, 2019 19:05
--- NOTE | 2019-06-21 19:15 | NUR ---
HAND-OFF: Report given to micheline wright.
--- NOTE | 2019-06-21 19:20 | NUR ---
NURSE NOTES: Received pt from TAMICA Olvera. pt is observed resting in bed, nonverbal, unable to make needs known. no s/sx of pain noted at this time. trach to vent settings; Shiley: 8, AC: 16, VT: , FiO2: 35%, PEEP: 5. tolerated settings well, saturation: 100%, no s/sx of respiratory distress noted. G-tube site is patent and intact, running Nepro at 45 cc/hr. HOB elevated to 30 degrees, no residual noted. Rectal tube and F/C is patent and intact, draining to gravity. LH 20 G IV site is patent and intact, asymptomatic. bed in lowest position and locked, siderails up X3, all needs attended to. will continue to monitor.
[2019-06-21 20:00] VITALS: BP 129/51
[2019-06-21] MEDS: Atorvastatin 20mg tab GT SCH (20:45)
[2019-06-21] MEDS: Epoetin Alfa-EPBX (NON ESRD) 3000 units/ml vial SUBQ SCH (21:00)
[2019-06-21] MEDS: Epoetin Alfa-EPBX (NON ESRD)4000 units/ml vial SUBQ SCH (21:00)
[2019-06-22] VITALS: BP 118/47
[2019-06-22 04:00] VITALS: BP 129/56
[2019-06-22 04:18] LABS: HEMATOCRIT 32.5 % (42.0-52.0); HEMOGLOBIN 10.1 G/DL (14.2-18.0); MEAN CORPUSCULAR VOLUME 84 FL (80-99); PLATELET COUNT 564 K/UL (150-450); RED BLOOD COUNT 3.86 M/UL (4.70-6.10); RED CELL DISTRIBUTION WIDTH 17.3 % (11.6-14.8); WHITE BLOOD COUNT 19.1 K/UL (4.8-10.8)
[2019-06-22 04:40] LABS: ALANINE AMINOTRANSFERASE 125 U/L (12-78); ALBUMIN 1.9 G/DL (3.4-5.0); ALBUMIN/GLOBULIN RATIO 0.3 (1.0-2.7); ALKALINE PHOSPHATASE 298 U/L (46-116); ANION GAP 5 mmol/L (5-15); ASPARTATE AMINO TRANSFERASE 170 U/L (15-37); BILIRUBIN,TOTAL 0.3 MG/DL (0.2-1.0); BLOOD UREA NITROGEN 131 mg/dL (7-18); CALCIUM 9.3 MG/DL (8.5-10.1); CARBON DIOXIDE 36 MMOL/L (21-32); CHLORIDE 99 MMOL/L (98-107); CREATININE 3.1 MG/DL (0.55-1.30); POTASSIUM 4.2 MMOL/L (3.5-5.1); SODIUM 140 MMOL/L (136-145)
[2019-06-22] MEDS: Ferrous Sulfate 300 MG/5 ML UDC GT SCH ×3 (05:32→22:20)
[2019-06-22] MEDS: NovoLOG Insulin Flexpen SUBQ SCH ×4 (05:34→23:27)
--- NOTE | 2019-06-22 07:43 | NUR ---
HAND-OFF: Report given to TAMICA Madsen. endorsed plan of care.
--- NOTE | 2019-06-22 07:43 | NUR ---
NURSE NOTES: Received report from Ivonne DAVEY. Pt in bed awake and unable to follow the direction. No c/o pain noted from facial pain scale. No acute distress noted. IV site in right hand 24G SL and LFA 22G SL patent and asymptomatic. Side railsx3 up for safety. G-tube feeding running with Nephro @45ml/hr patent and asymptomatic. HOB elevated with 45 degree. Call light within easy reach. F/C intact and patent. On rectal tube, no liquid stool noted from drainage tube. Will continue plan of care,
[2019-06-22 08:00] VITALS: BP 127/52
[2019-06-22] MEDS: Multivitamins W/Minerals 15 ML UDC GT SCH (08:54)
[2019-06-22] MEDS: Ascorbic Acid 500mg tab GT SCH (08:54)
[2019-06-22] MEDS: Metoprolol Tartrate 100mg tab GT SCH ×2 (08:54→20:29)
[2019-06-22] MEDS: Nephrovite tab (Rena-Vite) GT SCH (08:54)
[2019-06-22] MEDS: Heparin 5000 units/ml inj SUBQ SCH ×2 (08:58→20:31)
--- NOTE | 2019-06-22 09:05 | Pulmonology Progress Note ---
Subjective ROS Limited/Unobtainable: Yes Constitutional: Denies: fever Gastrointestinal/Abdominal: Reports: diarrhea Allergies: Coded Allergies: No Known Allergies (Unverified , 06/10/19) Subjective reviewed care consultants noted poor renal function wbc now worse Objective Last 24 Hour Vital Signs Date Time Temp Pulse Resp B/P (MAP) Pulse Ox O2 Delivery O2 Flow Rate FiO2 06/22/19 08:54 83 127/52 06/22/19 08:00 35 06/22/19 08:00 98.4 83 16 127/52 (77) 100 06/22/19 04:00 Mechanical Ventilator 35.0 06/22/19 04:00 81 06/22/19 04:00 98.8 82 16 129/56 (80) 100 06/22/19 04:00 35 06/22/19 03:12 88 19 35 06/22/19 00:00 Mechanical Ventilator 35.0 06/22/19 00:00 35 06/22/19 00:00 98.4 81 16 118/47 (70) 100 06/22/19 00:00 76 06/21/19 23:16 89 16 35 06/21/19 21:28 99 18 35 06/21/19 20:57 89 129/51 06/21/19 20:00 35 06/21/19 20:00 99.9 89 17 129/51 (77) 100 06/21/19 20:00 91 06/21/19 20:00 Mechanical Ventilator 35.0 06/21/19 19:22 94 17 35 06/21/19 16:00 98.8 107 22 122/54 (76) 99 06/21/19 16:00 91 06/21/19 16:00 Mechanical Ventilator 35.0 06/21/19 16:00 35 06/21/19 15:58 105 18 35 06/21/19 12:00 35 06/21/19 12:00 97.7 90 16 139/67 (91) 100 06/21/19 12:00 Mechanical Ventilator 35.0 06/21/19 11:54 82 06/21/19 11:05 81 18 35 Intake and Output 06/21/19 06/22/19 19:00 07:00 Intake Total 665 ml 680 ml Output Total 650 ml Balance 15 ml 680 ml Intake Free Water 80 ml 200 ml Tube Feeding 585 ml 450 ml Other 30 ml Output Urine Total 650 ml Objective WDWN NAD trach and gt clear breath sounds bilaterally without rhonchi or wheeze [id number] without MRG NABS nontender no HSM no CC noted edema better scrotal edema nonfocal reviewed and edited General Appearance: no acute distress HEENT: status post trach Abdomen: soft, non tender, other - GT Extremities: no edema Neurologic/Psychiatric: aphasia Musculoskeletal: atrophy Microbiology Date/Time Source Procedure Growth Status 06/20/19 13:39 Nasopharynx Coronavirus COVID-19 PCR ([facility]) - Final Complete 06/20/19 13:39 Sputum Induced Gram Stain - Final Resulted 06/20/19 13:39 Sputum Induced Sputum Culture Pending Resulted Laboratory Tests 06/21/19 17:35: Sodium Level 140, Potassium Level 4.8, Chloride Level 98, Carbon Dioxide Level 34H, Anion Gap 8, Blood Urea Nitrogen 119H, Creatinine 2.9H, Estimat Glomerular Filtration Rate 25.7, Glucose Level 188H, Calcium Level 9.7 06/22/19 03:40: Sodium Level 140, Potassium Level 4.2, Chloride Level 99, Carbon Dioxide Level 36H, Anion Gap 5, Blood Urea Nitrogen 131H, Creatinine 3.1H, Estimat Glomerular Filtration Rate 23.8, Glucose Level 201H, Calcium Level 9.3, White Blood Count 19.1H, Red Blood Count 3.86L, Hemoglobin 10.1L, Hematocrit 32.5L, Mean Corpuscular Volume 84, Mean Corpuscular Hemoglobin 26.2L, Mean Corpuscular Hemoglobin Concent 31.1L, Red Cell Distribution Width 17.3H, Platelet Count 564H , Mean Platelet Volume 5.5L, Neutrophils (%) (Auto) , Lymphocytes (%) (Auto) , Monocytes (%) (Auto) , Eosinophils (%) (Auto) , Basophils (%) (Auto) , Differential Total Cells Counted 100, Neutrophils % (Manual) 68, Lymphocytes % ( Manual) 14L, Monocytes % (Manual) 10, Eosinophils % (Manual) 7H, Basophils % ( Manual) 1, Band Neutrophils 0, Platelet Estimate Adequate, Platelet Morphology Normal, Hypochromasia 1+, Anisocytosis 1+, Total Bilirubin 0.3, Aspartate Amino Transf (AST/SGOT) 170H, Alanine Aminotransferase (ALT/SGPT) 125H, Alkaline Phosphatase 298H, Total Protein 7.9, Albumin 1.9L, Globulin 6.0, Albumin/ Globulin Ratio 0.3L Current Medications Medications (Trade) Dose Ordered Sig/Leonel Route PRN Reason Start Time Stop Time Status Last Admin Dose Admin Acetaminophen (Tylenol) 650 mg Q4H PRN NG Temp >100.5 06/10/19 21:00 07/10/19 20:59 06/19/19 15:42 Ascorbic Acid (Vitamin C) 500 mg DAILY GT 06/11/19 09:00 07/11/19 08:59 06/22/19 08:54 Atorvastatin Calcium (Lipitor) 40 mg BEDTIME GT 06/10/19 21:00 09/08/19 20:59 06/21/19 20:45 Dextrose (Dextrose 50%) 25 ml Q30M PRN IV Hypoglycemia 06/10/19 21:00 09/08/19 20:59 Dextrose (Dextrose 50%) 50 ml Q30M PRN IV Hypoglycemia 06/10/19 21:00 09/08/19 20:59 Epoetin Andreas (Epoetin Andreas-EPBX(NON ESRD)) 3,000 unit WED-WED-WED SUBQ 06/19/19 21:00 09/17/19 20:59 06/19/19 20:52 Epoetin Andreas (Epoetin Andreas-EPBX(NON ESRD)) 4,000 unit WED-WED-WED SUBQ 06/19/19 21:00 09/17/19 20:59 06/19/19 20:52 Ferrous Sulfate (Feosol) 300 mg EVERY 8 HOURS GT 06/18/19 22:00 09/09/19 08:59 06/22/19 05:32 Heparin Sodium (Porcine) (Heparin 5000 units/ml) 5,000 units EVERY 12 HOURS SUBQ 06/10/19 21:00 07/25/19 20:59 06/22/19 08:58 Insulin Aspart (NovoLOG) Q6HR SUBQ 06/11/19 12:00 09/08/19 21:59 06/22/19 05:34 Lansoprazole (Prevacid) 30 mg DAILY GT 06/20/19 09:00 07/20/19 08:59 06/22/19 08:54 Levofloxacin (Levaquin) 250 mg DAILY ORAL 06/22/19 09:00 06/23/19 08:59 06/22/19 08:54 Loperamide HCl (Imodium) 2 mg Q6H PRN NG Diarrhea 06/17/19 08:30 07/17/19 08:29 06/22/19 08:53 Metoprolol Tartrate (Lopressor) 100 mg Q12HR GT 06/10/19 09:00 09/08/19 08:59 06/22/19 08:54 Multivitamins (Multivitamins W/ Minerals 15ml Liquid) 15 ml DAILY GT 06/11/19 09:00 07/11/19 08:59 06/22/19 08:54 Vitamin B Complex/ Vit C/Folic Acid (Nephrovite) 1 tab DAILY GT 06/11/19 09:00 07/11/19 08:59 06/22/19 08:54 Assessment/Plan Assessment/Plan Anasarca Pulmonary edema scrotal edema Uremia Chronic respiratory failure on Ventilator Hypertension Diabetes Previous pneumonia Subdural hematoma Bedbound Tracheostomy dependent leukocytosis possible sepsis severe PCM anemia diarrhea negative Cdif PLAN vent management as is renal and ID noted antibiotics reviewed cultures noted monitor urine output and labs feeds as tolerated protein and supplement follow up closely and monitor hold dc pending improvement in wbc- will obtain update from ID impression, plan, and exam edited and reviewed in detail care discussed with Kain Tovar MD June 22, 2019 09:05
--- NOTE | 2019-06-22 10:53 | Infectious Diseases Prog Note ---
Assessment/Plan Assessment/Plan A 1. pneumonia with streptococcus, pseudomonas, stenotrophomonas COVID19 test negative 5,3 & 06/19 2. Ventilatory dependent respiratory failure 3. Leucocytosis 4. Diabetes mellitus 5. hypertension 6. renal failure 7. SDH 8. + blood cultures with coag neg staph likely contaminated 9. QT prolongation 10. Diarrhea, C. difficile: negative P 1. Continue Levaquin X 1 day 2. Will f/u sputum culture Subjective ROS Limited/Unobtainable: Yes Constitutional: Denies: fever Allergies: Coded Allergies: No Known Allergies (Unverified , 06/10/19) Objective Vital Signs Last 24 Hour Vital Signs Date Time Temp Pulse Resp B/P (MAP) Pulse Ox O2 Delivery O2 Flow Rate FiO2 06/22/19 08:54 83 127/52 06/22/19 08:00 84 06/22/19 08:00 Mechanical Ventilator 06/22/19 08:00 35 06/22/19 08:00 98.4 83 16 127/52 (77) 100 06/22/19 04:00 Mechanical Ventilator 35.0 06/22/19 04:00 81 06/22/19 04:00 98.8 82 16 129/56 (80) 100 06/22/19 04:00 35 06/22/19 03:12 88 19 35 06/22/19 00:00 Mechanical Ventilator 35.0 06/22/19 00:00 35 06/22/19 00:00 98.4 81 16 118/47 (70) 100 06/22/19 00:00 76 06/21/19 23:16 89 16 35 06/21/19 21:28 99 18 35 06/21/19 20:57 89 129/51 06/21/19 20:00 35 06/21/19 20:00 99.9 89 17 129/51 (77) 100 06/21/19 20:00 91 06/21/19 20:00 Mechanical Ventilator 35.0 06/21/19 19:22 94 17 35 06/21/19 16:00 98.8 107 22 122/54 (76) 99 06/21/19 16:00 91 06/21/19 16:00 Mechanical Ventilator 35.0 06/21/19 16:00 35 06/21/19 15:58 105 18 35 06/21/19 12:00 35 06/21/19 12:00 97.7 90 16 139/67 (91) 100 06/21/19 12:00 Mechanical Ventilator 35.0 06/21/19 11:54 82 06/21/19 11:05 81 18 35 Height (Feet): 5 Height (Inches): 4.00 Weight (Pounds): 150 General Appearance: no acute distress HEENT: status post trach Respiratory/Chest: normal breath sounds, other - on ventilator Cardiovascular: normal rate Abdomen: soft, non tender, other - Gt feeding, rectal tube Extremities: no edema Neurologic/Psychiatric: unresponsiveness Musculoskeletal: atrophy Microbiology Date/Time Source Procedure Growth Status 06/20/19 13:39 Nasopharynx Coronavirus COVID-19 PCR ([facility]) - Final Complete 06/20/19 13:39 Sputum Induced Gram Stain - Final Resulted 06/20/19 13:39 Sputum Induced Sputum Culture Pending Resulted Laboratory Tests Test 06/21/19 17:35 06/22/19 03:40 Sodium Level 140 MMOL/L (136-145) 140 MMOL/L (136-145) Potassium Level 4.8 MMOL/L (3.5-5.1) 4.2 MMOL/L (3.5-5.1) Chloride Level 98 MMOL/L (98-107) 99 MMOL/L (98-107) Carbon Dioxide Level 34 MMOL/L (21-32) H 36 MMOL/L (21-32) H Anion Gap 8 mmol/L (5-15) 5 mmol/L (5-15) Blood Urea Nitrogen 119 mg/dL (7-18) H 131 mg/dL (7-18) H Creatinine 2.9 MG/DL (0.55-1.30) H 3.1 MG/DL (0.55-1.30) H Estimat Glomerular Filtration Rate 25.7 mL/min (>60) 23.8 mL/min (>60) Glucose Level 188 MG/DL (74-106) H 201 MG/DL (74-106) H Calcium Level 9.7 MG/DL (8.5-10.1) 9.3 MG/DL (8.5-10.1) White Blood Count 19.1 K/UL (4.8-10.8) H Red Blood Count 3.86 M/UL (4.70-6.10) L Hemoglobin 10.1 G/DL (14.2-18.0) L Hematocrit 32.5 % (42.0-52.0) L Mean Corpuscular Volume 84 FL (80-99) Mean Corpuscular Hemoglobin 26.2 PG (27.0-31.0) L Mean Corpuscular Hemoglobin Concent 31.1 G/DL (32.0-36.0) L Red Cell Distribution Width 17.3 % (11.6-14.8) H Platelet Count 564 K/UL (150-450) H Mean Platelet Volume 5.5 FL (6.5-10.1) L Neutrophils (%) (Auto) % (45.0-75.0) Lymphocytes (%) (Auto) % (20.0-45.0) Monocytes (%) (Auto) % (1.0-10.0) Eosinophils (%) (Auto) % (0.0-3.0) Basophils (%) (Auto) % (0.0-2.0) Differential Total Cells Counted 100 Neutrophils % (Manual) 68 % (45-75) Lymphocytes % (Manual) 14 % (20-45) L Monocytes % (Manual) 10 % (1-10) Eosinophils % (Manual) 7 % (0-3) H Basophils % (Manual) 1 % (0-2) Band Neutrophils 0 % (0-8) Platelet Estimate Adequate Platelet Morphology Normal Hypochromasia 1+ Anisocytosis 1+ Total Bilirubin 0.3 MG/DL (0.2-1.0) Aspartate Amino Transf (AST/SGOT) 170 U/L (15-37) H Alanine Aminotransferase (ALT/SGPT) 125 U/L (12-78) H Alkaline Phosphatase 298 U/L (46-116) H Total Protein 7.9 G/DL (6.4-8.2) Albumin 1.9 G/DL (3.4-5.0) L Globulin 6.0 g/dL Albumin/Globulin Ratio 0.3 (1.0-2.7) L Current Medications Medications (Trade) Dose Ordered Sig/Leonel Route PRN Reason Start Time Stop Time Status Last Admin Dose Admin Acetaminophen (Tylenol) 650 mg Q4H PRN NG Temp >100.5 06/10/19 21:00 07/10/19 20:59 06/19/19 15:42 Ascorbic Acid (Vitamin C) 500 mg DAILY GT 06/11/19 09:00 07/11/19 08:59 06/22/19 08:54 Atorvastatin Calcium (Lipitor) 40 mg BEDTIME GT 06/10/19 21:00 09/08/19 20:59 06/21/19 20:45 Dextrose (Dextrose 50%) 25 ml Q30M PRN IV Hypoglycemia 06/10/19 21:00 09/08/19 20:59 Dextrose (Dextrose 50%) 50 ml Q30M PRN IV Hypoglycemia 06/10/19 21:00 09/08/19 20:59 Epoetin Andreas (Epoetin Andreas-EPBX(NON ESRD)) 3,000 unit WED- SUBQ 06/19/19 21:00 09/17/19 20:59 06/19/19 20:52 Epoetin Andreas (Epoetin Andreas-EPBX(NON ESRD)) 4,000 unit WED- SUBQ 06/19/19 21:00 09/17/19 20:59 06/19/19 20:52 Ferrous Sulfate (Feosol) 300 mg EVERY 8 HOURS GT 06/18/19 22:00 09/09/19 08:59 06/22/19 05:32 Heparin Sodium (Porcine) (Heparin 5000 units/ml) 5,000 units EVERY 12 HOURS SUBQ 06/10/19 21:00 07/25/19 20:59 06/22/19 08:58 Insulin Aspart (NovoLOG) Q6HR SUBQ 06/11/19 12:00 09/08/19 21:59 06/22/19 05:34 Lansoprazole (Prevacid) 30 mg DAILY GT 06/20/19 09:00 07/20/19 08:59 06/22/19 08:54 Levofloxacin (Levaquin) 250 mg DAILY ORAL 06/22/19 09:00 06/23/19 08:59 06/22/19 08:54 Loperamide HCl (Imodium) 2 mg Q6H PRN NG Diarrhea 06/17/19 08:30 07/17/19 08:29 06/22/19 08:53 Metoprolol Tartrate (Lopressor) 100 mg Q12HR GT 06/10/19 09:00 09/08/19 08:59 06/22/19 08:54 Multivitamins (Multivitamins W/ Minerals 15ml Liquid) 15 ml DAILY GT 06/11/19 09:00 07/11/19 08:59 06/22/19 08:54 Vitamin B Complex/ Vit C/Folic Acid (Nephrovite) 1 tab DAILY GT 06/11/19 09:00 07/11/19 08:59 06/22/19 08:54 Real De Leon MD June 22, 2019 10:53
[2019-06-22 12:37] VITALS: BP 123/51
--- NOTE | 2019-06-22 13:05 | NUR ---
*-* INSURANCE *-* UPDATED CLINICALS HAVE BEEN FAXED TO: [facility] tracking# [id number] Omero Jiménez ph# [phone] ext [phone] fax# [phone]
--- NOTE | 2019-06-22 15:12 | NUR ---
CASE MANAGEMENT: REVIEW 06/22/2019 SI: VENT DEPENDANT . PULMONARY EDEMA . VRE + CARRIER . COVID-19 NEGATIVE X2 T 97.3 HR 85 RR 16 BP 153/63 SAT 100% MECH VENT FIO2 35 WBC 19.1 H/H 10.1/32.5 PLT 564 BUN/CREAT 131/3.1 BG 201 CO2 36 AST/ALT 170/125 ALKP 298 ALBUMIN 1.9 IS: LEVAQUIN GT QD NOVOLOG SUBQ LOPRESSOR GT BID HEPARIN GT TID NEPHROVITE GT QD EPOETIN SQ MWF \:STEP DOWN UNIT STATUS DCP: [facility] CX PENDING MONITOR WBC
[2019-06-22 16:00] VITALS: BP 131/48
--- NOTE | 2019-06-22 19:09 | NUR ---
HAND-OFF: Report given to Ivonne DAVEY. Pt remains stable.
--- NOTE | 2019-06-22 19:15 | NUR ---
NURSE NOTES: Received pt from [facility]AM[facility] Madsen. pt observed in bed, obtunded, no s/sx of pain noted at this time. vent settings as follows: Shiley: 8, AC: 16, VT: 450, FiO2: 35%, PEEP: 5. tolerating well, saturation: 100%, no s/sx of respiratory distress noted. G-tube site is patent and intact, running Nepro at 45 cc/hr. HOB elevated to 30 degrees, no residual noted. F/C is patent and intact, draining nicole urine to gravity. skin alterations noted. RH 24 G and LH 20 G IV sites are patent and intact, asymptomatic. bed in lowest position and locked, siderails up X3, all needs attended to. will continue to monitor.
--- NOTE | 2019-06-22 19:24 | Nephrology Progress Note ---
Assessment/Plan Problem List: (1) Hypokalemia (2) CKD (chronic kidney disease) stage 5, GFR less than 15 ml/min (3) Anasarca (4) Pulmonary edema (5) Chronic respiratory failure (6) Uremia (7) Hyperkalemia (8) Malnutrition (9) Leukocytosis Plan c, , kcl gfr 7, avoid nephrotoxins, has had good diuresis, fever, on broad spectrum atb, bun higher dc lasix for now, high K treated, hydrate, leukocytosis ID reassessing Subjective ROS Limited/Unobtainable: Yes Objective Objective Last 24 Hour Vital Signs Date Time Temp Pulse Resp B/P (MAP) Pulse Ox O2 Delivery O2 Flow Rate FiO2 06/22/19 16:52 77 19 35 06/22/19 16:00 Mechanical Ventilator 06/22/19 16:00 35 06/22/19 16:00 98.7 68 16 131/48 (75) 100 06/22/19 16:00 77 06/22/19 14:56 69 19 35 06/22/19 12:43 73 20 35 06/22/19 12:37 98.1 74 16 123/51 (75) 100 06/22/19 12:00 Mechanical Ventilator 06/22/19 12:00 35 06/22/19 11:55 75 06/22/19 11:23 72 16 35 06/22/19 08:54 83 127/52 06/22/19 08:00 84 06/22/19 08:00 Mechanical Ventilator 06/22/19 08:00 35 06/22/19 08:00 98.4 83 16 127/52 (77) 100 06/22/19 07:30 83 16 35 06/22/19 04:00 Mechanical Ventilator 35.0 06/22/19 04:00 81 06/22/19 04:00 98.8 82 16 129/56 (80) 100 06/22/19 04:00 35 06/22/19 03:12 88 19 35 06/22/19 00:00 Mechanical Ventilator 35.0 06/22/19 00:00 35 06/22/19 00:00 98.4 81 16 118/47 (70) 100 06/22/19 00:00 76 06/21/19 23:16 89 16 35 06/21/19 21:28 99 18 35 06/21/19 20:57 89 129/51 06/21/19 20:00 35 06/21/19 20:00 99.9 89 17 129/51 (77) 100 06/21/19 20:00 91 06/21/19 20:00 Mechanical Ventilator 35.0 Intake and Output 06/21/19 06/22/19 19:00 07:00 Intake Total 665 ml 725 ml Output Total 650 ml Balance 15 ml 725 ml Intake Free Water 80 ml 200 ml Tube Feeding 585 ml 495 ml Other 30 ml Output Urine Total 650 ml Laboratory Tests 06/22/19 03:40: White Blood Count 19.1H, Red Blood Count 3.86L, Hemoglobin 10.1L, Hematocrit 32.5L, Mean Corpuscular Volume 84, Mean Corpuscular Hemoglobin 26.2L, Mean Corpuscular Hemoglobin Concent 31.1L, Red Cell Distribution Width 17.3H, Platelet Count 564H, Mean Platelet Volume 5.5L, Neutrophils (%) (Auto) , Lymphocytes (%) (Auto) , Monocytes (%) (Auto) , Eosinophils (%) (Auto) , Basophils (%) (Auto) , Differential Total Cells Counted 100, Neutrophils % ( Manual) 68, Lymphocytes % (Manual) 14L, Monocytes % (Manual) 10, Eosinophils % ( Manual) 7H, Basophils % (Manual) 1, Band Neutrophils 0, Platelet Estimate Adequate, Platelet Morphology Normal, Hypochromasia 1+, Anisocytosis 1+, Sodium Level 140, Potassium Level 4.2, Chloride Level 99, Carbon Dioxide Level 36H, Anion Gap 5, Blood Urea Nitrogen 131H, Creatinine 3.1H, Estimat Glomerular Filtration Rate 23.8, Glucose Level 201H, Calcium Level 9.3, Total Bilirubin 0.3 , Aspartate Amino Transf (AST/SGOT) 170H, Alanine Aminotransferase (ALT/SGPT) 125H, Alkaline Phosphatase 298H, Total Protein 7.9, Albumin 1.9L, Globulin 6.0, Albumin/Globulin Ratio 0.3L Height (Feet): 5 Height (Inches): 4.00 Weight (Pounds): 150 General Appearance: other - on vent Cardiovascular: regular rhythm Respiratory/Chest: rhonchi - bilaterally Abdomen: soft Extremities: no edema Neurologic: unresponsive Carmelo Frank MD June 22, 2019 19:24
--- NOTE | 2019-06-22 19:31 | Surgery Progress Note ---
Surgery Progress Note Subjective Additional Comments ill appearing labs reviewed micro noted Objective Last 24 Hour Vital Signs Date Time Temp Pulse Resp B/P (MAP) Pulse Ox O2 Delivery O2 Flow Rate FiO2 06/22/19 16:52 77 19 35 06/22/19 16:00 Mechanical Ventilator 06/22/19 16:00 35 06/22/19 16:00 98.7 68 16 131/48 (75) 100 06/22/19 16:00 77 06/22/19 14:56 69 19 35 06/22/19 12:43 73 20 35 06/22/19 12:37 98.1 74 16 123/51 (75) 100 06/22/19 12:00 Mechanical Ventilator 06/22/19 12:00 35 06/22/19 11:55 75 06/22/19 11:23 72 16 35 06/22/19 08:54 83 127/52 06/22/19 08:00 84 06/22/19 08:00 Mechanical Ventilator 06/22/19 08:00 35 06/22/19 08:00 98.4 83 16 127/52 (77) 100 06/22/19 07:30 83 16 35 06/22/19 04:00 Mechanical Ventilator 35.0 06/22/19 04:00 81 06/22/19 04:00 98.8 82 16 129/56 (80) 100 06/22/19 04:00 35 06/22/19 03:12 88 19 35 06/22/19 00:00 Mechanical Ventilator 35.0 06/22/19 00:00 35 06/22/19 00:00 98.4 81 16 118/47 (70) 100 06/22/19 00:00 76 06/21/19 23:16 89 16 35 06/21/19 21:28 99 18 35 06/21/19 20:57 89 129/51 06/21/19 20:00 35 06/21/19 20:00 99.9 89 17 129/51 (77) 100 06/21/19 20:00 91 06/21/19 20:00 Mechanical Ventilator 35.0 I&O Intake and Output 06/21/19 06/22/19 19:00 07:00 Intake Total 665 ml 725 ml Output Total 650 ml Balance 15 ml 725 ml Intake Free Water 80 ml 200 ml Tube Feeding 585 ml 495 ml Other 30 ml Output Urine Total 650 ml Dressing: other Wound: other Drains: other Cardiovascular: RSR Respiratory: decreased breath sounds Abdomen: soft, non-tender, present bowel sounds Extremities: no cyanosis Laboratory Tests Test 06/22/19 03:40 White Blood Count 19.1 K/UL (4.8-10.8) H Red Blood Count 3.86 M/UL (4.70-6.10) L Hemoglobin 10.1 G/DL (14.2-18.0) L Hematocrit 32.5 % (42.0-52.0) L Mean Corpuscular Volume 84 FL (80-99) Mean Corpuscular Hemoglobin 26.2 PG (27.0-31.0) L Mean Corpuscular Hemoglobin Concent 31.1 G/DL (32.0-36.0) L Red Cell Distribution Width 17.3 % (11.6-14.8) H Platelet Count 564 K/UL (150-450) H Mean Platelet Volume 5.5 FL (6.5-10.1) L Neutrophils (%) (Auto) % (45.0-75.0) Lymphocytes (%) (Auto) % (20.0-45.0) Monocytes (%) (Auto) % (1.0-10.0) Eosinophils (%) (Auto) % (0.0-3.0) Basophils (%) (Auto) % (0.0-2.0) Differential Total Cells Counted 100 Neutrophils % (Manual) 68 % (45-75) Lymphocytes % (Manual) 14 % (20-45) L Monocytes % (Manual) 10 % (1-10) Eosinophils % (Manual) 7 % (0-3) H Basophils % (Manual) 1 % (0-2) Band Neutrophils 0 % (0-8) Platelet Estimate Adequate Platelet Morphology Normal Hypochromasia 1+ Anisocytosis 1+ Sodium Level 140 MMOL/L (136-145) Potassium Level 4.2 MMOL/L (3.5-5.1) Chloride Level 99 MMOL/L (98-107) Carbon Dioxide Level 36 MMOL/L (21-32) H Anion Gap 5 mmol/L (5-15) Blood Urea Nitrogen 131 mg/dL (7-18) H Creatinine 3.1 MG/DL (0.55-1.30) H Estimat Glomerular Filtration Rate 23.8 mL/min (>60) Glucose Level 201 MG/DL (74-106) H Calcium Level 9.3 MG/DL (8.5-10.1) Total Bilirubin 0.3 MG/DL (0.2-1.0) Aspartate Amino Transf (AST/SGOT) 170 U/L (15-37) H Alanine Aminotransferase (ALT/SGPT) 125 U/L (12-78) H Alkaline Phosphatase 298 U/L (46-116) H Total Protein 7.9 G/DL (6.4-8.2) Albumin 1.9 G/DL (3.4-5.0) L Globulin 6.0 g/dL Albumin/Globulin Ratio 0.3 (1.0-2.7) L Plan Problems: (1) Decubitus skin ulcer Assessment & Plan: Pt presented on admission with generalized edema,grossly enlarged scrotum, contractures and multiple pressure injuries. Full thickness stage 4 pressure injury L Sacrum (L)1.6cm x (W)1.8cm x (D)0.3cm. Base of wound has 40% slough,60% beefy red. Borders are macerated. Small amt sanguineus exudate noted. Wound noted to be within field of previous wound. Periwound, skin tone is darker without induration or fluctuance. Scattered areas of hyperpigmentation from previous wounds noted to R and L Buttocks. Grossly enlarged and erythematous scrotum . Clusters of linear partial thickness ulcers noted at base of scrotum.moderate amt of serous exudate noted .Shaft of penis is grossly edematous. DTPI noted to medial L heel. Base of wound is maroon and fluctuant. (L)4cm x (W) 4.5cm. R heel is boggy with non-blanching erythema. Tx.Plan: Cleanse Sacral wound with Saline. Apply TheraHoney.Apply Moisture Barrier Paste periwound. Cover with Optifoam drsg. Change every 3 days and prn. Apply Moisture Barrier Paste to Bilat groin and scrotum with each Incontinence care. Cover each trochanter/Hips areas with Optifoam drsgs. Change every 7 days and prn. Apply Cavilon Skin Barrier to both heels. Cover each heel with Optifoam drsg. Change every 7 days and prn. Reposition at least every 2hours or as tolerated. Off-load heels with Pillow. APM/BECCA Mattress overlay. (2) Malnutrition Assessment & Plan: DAILY ESTIMATED NEEDS: Needs based on Renal, critical care, wound/ 62kg 22-28 kcals/kg 7347-7710 total kcals 1-1.25 (increase w/ renal improvement) g protein/kg 62-78 g total protein 20-25 mL/kg 1415-4016 total fluid mLs NUTRITION DIAGNOSIS: * Swallowing difficulty R/T respiratory failure, dysphagia as evidenced by trach/vent dep, PEG dep * Increased kcal/prot needs R/T wound healing as evidenced by admitted w/ multiple pressure injuries including full thickness at L sacrum. CURRENT TF:Nepro @ 45ml/hr x 24 hrs ENTERAL NUTRITION RECOMMENDATIONS: LOWER NEPRO to 40ml/hr x 24 hrs to provide 960ml, 1728 kcal,m 78g pro, 698ml free H2O * Rec lower TF to goal of 40ml/hr x24 hrs to not exceed est kcal needs (BG elevated) * HOB over 30 degrees/ water flush per MD ADDITIONAL RECOMMENDATIONS: * Per SNF: HT=64" SL=841 lbs (Vs EMR wt of 150lbs) -> obtain re-calibrated bedscale wt * Monitor lytes and renal fxn, need to continue Nepro K critical, maintain Nepro; lower rate to 40ml/hr * BG elevated, continue bed side BG w/ niss * Wound healing: Vit C dose per nephro , add Garo BID via PEG (3) Chronic respiratory failure Assessment & Plan: FINDINGS: Hardware: Tracheostomy tube terminates in the region of the upper/mid thoracic trachea. Lungs/pleura: Bilateral pleural effusions. Opacities throughout right greater than left lungs, concerning for pulmonary edema and/or infectious/inflammatory process. Heart/mediastinum: Mild enlargement of the cardiac silhouette. Atherosclerotic calcifications of the aorta. Left-sided pacemaker. Soft tissues: Unremarkable. Bones: No acute fracture. Degenerative changes of the spine Upper abdomen: Normal. IMPRESSION: Bilateral pleural effusions. Opacities throughout right greater than left lungs, concerning for pulmonary edema and/or infectious/inflammatory process. Trach Care (4) Anasarca (5) Leukocytosis Assessment & Plan: Patient identified to have significant leukocytosis, anemia , abnormal labs. Albumin low. Renal insufficiency. Anasarca. Microbiology noted Sputum sample resulted Antibiotics per infectious disease Wound evaluated likely etiology of patient's infectious source Will monitor closely and provide assistance thank you for let me participate in patient's care wbc persistent and elevated Levaq for 3 more days Jonathan Urias June 22, 2019 19:31
[2019-06-22 20:00] VITALS: BP 135/55
[2019-06-22] MEDS: Atorvastatin 20mg tab GT SCH (20:29)
[2019-06-23] VITALS: BP 133/54
--- NOTE | 2019-06-23 00:45 | NUR ---
NURSE NOTES: bed bath given. new gown and linens applied. turned and repositioned pt with pillow support. pt tolerated well. no s/sx of acute distress noted. will continue to monitor.
[2019-06-23 04:00] VITALS: BP 145/58
[2019-06-23] MEDS: Ferrous Sulfate 300 MG/5 ML UDC GT SCH ×3 (05:46→22:29)
[2019-06-23] MEDS: NovoLOG Insulin Flexpen SUBQ SCH ×4 (05:47→23:24)
[2019-06-23 07:10] LABS: ANION GAP 8 mmol/L (5-15); BLOOD UREA NITROGEN 131 mg/dL (7-18); CALCIUM 8.5 MG/DL (8.5-10.1); CARBON DIOXIDE 34 MMOL/L (21-32); CHLORIDE 97 MMOL/L (98-107); POTASSIUM 3.2 MMOL/L (3.5-5.1); SODIUM 139 MMOL/L (136-145)
--- NOTE | 2019-06-23 07:38 | NUR ---
HAND-OFF: Report given to TAMICA Ruiz. endorsed plan of care.
--- NOTE | 2019-06-23 07:39 | NUR ---
NURSE NOTES: Received patient in bed. Vent dependent. In no apparent distress. On continuous GTF. Avalos cath inplace. bed in lowest position. Bed alarm on. Contact isolation observed. Will continue plan of care.
[2019-06-23 08:00] VITALS: BP 154/54
--- NOTE | 2019-06-23 08:38 | Pulmonology Progress Note ---
Subjective ROS Limited/Unobtainable: Yes Constitutional: Denies: fever Gastrointestinal/Abdominal: Reports: diarrhea Allergies: Coded Allergies: No Known Allergies (Unverified , 06/10/19) Subjective reviewed care consultants noted poor renal function wbc now worse Objective Last 24 Hour Vital Signs Date Time Temp Pulse Resp B/P (MAP) Pulse Ox O2 Delivery O2 Flow Rate FiO2 06/23/19 05:10 75 16 35 06/23/19 04:00 97.9 75 16 145/58 (87) 100 06/23/19 04:00 Mechanical Ventilator 06/23/19 04:00 35 06/23/19 03:32 74 06/23/19 03:24 74 16 35 06/23/19 00:44 72 17 35 06/23/19 00:00 75 06/23/19 00:00 Mechanical Ventilator 06/23/19 00:00 97.9 74 16 133/54 (80) 100 06/22/19 23:15 77 19 35 06/22/19 21:07 72 17 35 06/22/19 20:29 86 135/55 06/22/19 20:00 35 06/22/19 20:00 Mechanical Ventilator 06/22/19 20:00 97.7 86 19 135/55 (81) 99 06/22/19 19:29 87 06/22/19 19:02 76 18 35 06/22/19 16:52 77 19 35 06/22/19 16:00 Mechanical Ventilator 06/22/19 16:00 35 06/22/19 16:00 98.7 68 16 131/48 (75) 100 06/22/19 16:00 77 06/22/19 14:56 69 19 35 06/22/19 12:43 73 20 35 06/22/19 12:37 98.1 74 16 123/51 (75) 100 06/22/19 12:00 Mechanical Ventilator 06/22/19 12:00 35 06/22/19 11:55 75 06/22/19 11:23 72 16 35 06/22/19 08:54 83 127/52 Intake and Output 06/22/19 06/23/19 19:00 07:00 Intake Total 740 ml 1929.583 ml Output Total 350 ml 750 ml Balance 390 ml 1179.583 ml Intake Free Water 200 ml 200 ml IV Total 1189.583 ml Tube Feeding 540 ml 540 ml Output Urine Total 350 ml 750 ml Objective WDWN NAD trach and gt clear breath sounds bilaterally without rhonchi or wheeze [id number] without MRG NABS nontender no HSM no CC noted edema better scrotal edema nonfocal reviewed and edited General Appearance: no acute distress HEENT: status post trach Abdomen: soft, non tender, other - Gt feeding, rectal tube Extremities: no edema Neurologic/Psychiatric: unresponsiveness Musculoskeletal: atrophy Microbiology Date/Time Source Procedure Growth Status 06/20/19 13:39 Nasopharynx Coronavirus COVID-19 PCR ([facility]) - Final Complete 06/20/19 13:39 Sputum Induced Gram Stain - Final Resulted 06/20/19 13:39 Sputum Culture - Preliminary Pseudomonas Aeruginosa Usual Respiratory Linda Resulted Laboratory Tests 06/23/19 06:30: Sodium Level 139, Potassium Level 3.2L, Chloride Level 97L, Carbon Dioxide Level 34H, Anion Gap 8, Blood Urea Nitrogen 131H, Creatinine 3.0H, Estimat Glomerular Filtration Rate 24.7, Glucose Level 223H, Calcium Level 8.5 Current Medications Medications (Trade) Dose Ordered Sig/Leonel Route PRN Reason Start Time Stop Time Status Last Admin Dose Admin Acetaminophen (Tylenol) 650 mg Q4H PRN NG Temp >100.5 06/10/19 21:00 07/10/19 20:59 06/19/19 15:42 Ascorbic Acid (Vitamin C) 500 mg DAILY GT 06/11/19 09:00 07/11/19 08:59 06/22/19 08:54 Atorvastatin Calcium (Lipitor) 40 mg BEDTIME GT 06/10/19 21:00 09/08/19 20:59 06/22/19 20:29 Dextrose (Dextrose 50%) 25 ml Q30M PRN IV Hypoglycemia 06/10/19 21:00 09/08/19 20:59 Dextrose (Dextrose 50%) 50 ml Q30M PRN IV Hypoglycemia 06/10/19 21:00 09/08/19 20:59 Epoetin Andreas (Epoetin Andreas-EPBX(NON ESRD)) 3,000 unit MON-WED-WED SUBQ 06/19/19 21:00 09/17/19 20:59 06/19/19 20:52 Epoetin Andreas (Epoetin Andreas-EPBX(NON ESRD)) 4,000 unit WED-WED-WED SUBQ 06/19/19 21:00 09/17/19 20:59 06/19/19 20:52 Ferrous Sulfate (Feosol) 300 mg EVERY 8 HOURS GT 06/18/19 22:00 09/09/19 08:59 06/23/19 05:46 Heparin Sodium (Porcine) (Heparin 5000 units/ml) 5,000 units EVERY 12 HOURS SUBQ 06/10/19 21:00 07/25/19 20:59 06/22/19 20:31 Insulin Aspart (NovoLOG) Q6HR SUBQ 06/11/19 12:00 09/08/19 21:59 06/23/19 05:47 Lansoprazole (Prevacid) 30 mg DAILY GT 06/20/19 09:00 07/20/19 08:59 06/22/19 08:54 Levofloxacin (Levaquin) 250 mg DAILY ORAL 06/22/19 09:00 06/23/19 08:59 06/22/19 08:54 Loperamide HCl (Imodium) 2 mg Q6H PRN NG Diarrhea 06/17/19 08:30 07/17/19 08:29 06/22/19 17:31 Metoprolol Tartrate (Lopressor) 100 mg Q12HR GT 06/10/19 09:00 09/08/19 08:59 06/22/19 20:29 Multivitamins (Multivitamins W/ Minerals 15ml Liquid) 15 ml DAILY GT 06/11/19 09:00 07/11/19 08:59 06/22/19 08:54 Sodium Chloride 1,000 ml @ 125 mls/hr Q8H IV 06/22/19 19:30 07/22/19 19:29 06/23/19 03:00 Vitamin B Complex/ Vit C/Folic Acid (Nephrovite) 1 tab DAILY GT 06/11/19 09:00 07/11/19 08:59 06/22/19 08:54 Assessment/Plan Assessment/Plan Anasarca Pulmonary edema scrotal edema Uremia Chronic respiratory failure on Ventilator Hypertension Diabetes Previous pneumonia Subdural hematoma Bedbound Tracheostomy dependent leukocytosis possible sepsis severe PCM anemia diarrhea negative Cdif PLAN vent management as is renal and ID noted antibiotics reviewed cultures noted monitor urine output and labs feeds as tolerated protein and supplement follow up closely and monitor hold dc pending improvement in wbc- will obtain update from ID impression, plan, and exam edited and reviewed in detail care discussed with Kain Tovar MD June 23, 2019 08:38
[2019-06-23] MEDS: Multivitamins W/Minerals 15 ML UDC GT SCH (09:47)
[2019-06-23] MEDS: Nephrovite tab (Rena-Vite) GT SCH (09:47)
[2019-06-23] MEDS: Heparin 5000 units/ml inj SUBQ SCH ×2 (09:47→20:25)
[2019-06-23] MEDS: Metoprolol Tartrate 100mg tab GT SCH ×2 (09:47→20:25)
[2019-06-23] MEDS: Ascorbic Acid 500mg tab GT SCH (09:47)
--- NOTE | 2019-06-23 11:08 | Infectious Diseases Prog Note ---
Assessment/Plan Assessment/Plan antibiotics : levoquin A 1. pneumonia with pseudomonas COVID 19 test negative 5,3,20, 5.12.20 2. respiratory failure 3. leucocytosis 4. diabetes mellitus 5. hypertension 6. renal failure improving 7. SDH 8. + blood cultures with coag neg staph likely contaminated 9. QT prolongation P 1. start cefepime 2. d/c levoquin 3. will follow up cultures Subjective ROS Limited/Unobtainable: Yes Allergies: Coded Allergies: No Known Allergies (Unverified , 06/10/19) Objective Vital Signs Last 24 Hour Vital Signs Date Time Temp Pulse Resp B/P (MAP) Pulse Ox O2 Delivery O2 Flow Rate FiO2 06/23/19 09:47 72 154/54 06/23/19 09:10 72 16 35 06/23/19 08:00 97.9 75 17 154/54 (87) 100 06/23/19 08:00 35 06/23/19 08:00 Mechanical Ventilator 06/23/19 07:58 73 06/23/19 07:25 74 16 35 06/23/19 05:10 75 16 35 06/23/19 04:00 97.9 75 16 145/58 (87) 100 06/23/19 04:00 Mechanical Ventilator 06/23/19 04:00 35 06/23/19 03:32 74 06/23/19 03:24 74 16 35 06/23/19 00:44 72 17 35 06/23/19 00:00 75 06/23/19 00:00 Mechanical Ventilator 06/23/19 00:00 97.9 74 16 133/54 (80) 100 06/22/19 23:15 77 19 35 06/22/19 21:07 72 17 35 06/22/19 20:29 86 135/55 06/22/19 20:00 35 06/22/19 20:00 Mechanical Ventilator 06/22/19 20:00 97.7 86 19 135/55 (81) 99 06/22/19 19:29 87 06/22/19 19:02 76 18 35 06/22/19 16:52 77 19 35 06/22/19 16:00 Mechanical Ventilator 06/22/19 16:00 35 06/22/19 16:00 98.7 68 16 131/48 (75) 100 06/22/19 16:00 77 06/22/19 14:56 69 19 35 06/22/19 12:43 73 20 35 06/22/19 12:37 98.1 74 16 123/51 (75) 100 06/22/19 12:00 Mechanical Ventilator 06/22/19 12:00 35 06/22/19 11:55 75 06/22/19 11:23 72 16 35 Height (Feet): 5 Height (Inches): 4.00 Weight (Pounds): 150 HEENT: status post trach Respiratory/Chest: lungs clear Cardiovascular: normal rate, regular rhythm, no gallop/murmur Abdomen: soft, non tender, other - GT Extremities: no edema Microbiology Date/Time Source Procedure Growth Status 06/20/19 13:39 Nasopharynx Coronavirus COVID-19 PCR ([facility]) - Final Complete 06/20/19 13:39 Sputum Induced Gram Stain - Final Resulted 06/20/19 13:39 Sputum Culture - Preliminary Pseudomonas Aeruginosa Usual Respiratory Linda Resulted Laboratory Tests Test 06/23/19 06:30 Sodium Level 139 MMOL/L (136-145) Potassium Level 3.2 MMOL/L (3.5-5.1) L Chloride Level 97 MMOL/L (98-107) L Carbon Dioxide Level 34 MMOL/L (21-32) H Anion Gap 8 mmol/L (5-15) Blood Urea Nitrogen 131 mg/dL (7-18) H Creatinine 3.0 MG/DL (0.55-1.30) H Estimat Glomerular Filtration Rate 24.7 mL/min (>60) Glucose Level 223 MG/DL (74-106) H Calcium Level 8.5 MG/DL (8.5-10.1) Current Medications Medications (Trade) Dose Ordered Sig/Leonel Route PRN Reason Start Time Stop Time Status Last Admin Dose Admin Acetaminophen (Tylenol) 650 mg Q4H PRN NG Temp >100.5 06/10/19 21:00 07/10/19 20:59 06/19/19 15:42 Ascorbic Acid (Vitamin C) 500 mg DAILY GT 06/11/19 09:00 07/11/19 08:59 06/23/19 09:47 Atorvastatin Calcium (Lipitor) 40 mg BEDTIME GT 06/10/19 21:00 09/08/19 20:59 06/22/19 20:29 Dextrose (Dextrose 50%) 25 ml Q30M PRN IV Hypoglycemia 06/10/19 21:00 09/08/19 20:59 Dextrose (Dextrose 50%) 50 ml Q30M PRN IV Hypoglycemia 06/10/19 21:00 09/08/19 20:59 Epoetin Andreas (Epoetin Andreas-EPBX(NON ESRD)) 3,000 unit WED-WED-WED SUBQ 06/19/19 21:00 09/17/19 20:59 06/19/19 20:52 Epoetin Andreas (Epoetin Andreas-EPBX(NON ESRD)) 4,000 unit WED-WED-WED SUBQ 06/19/19 21:00 09/17/19 20:59 06/19/19 20:52 Ferrous Sulfate (Feosol) 300 mg EVERY 8 HOURS GT 06/18/19 22:00 09/09/19 08:59 06/23/19 05:46 Heparin Sodium (Porcine) (Heparin 5000 units/ml) 5,000 units EVERY 12 HOURS SUBQ 06/10/19 21:00 07/25/19 20:59 06/23/19 09:47 Insulin Aspart (NovoLOG) Q6HR SUBQ 06/11/19 12:00 09/08/19 21:59 06/23/19 05:47 Lansoprazole (Prevacid) 30 mg DAILY GT 06/20/19 09:00 07/20/19 08:59 06/23/19 09:47 Loperamide HCl (Imodium) 2 mg Q6H PRN NG Diarrhea 06/17/19 08:30 07/17/19 08:29 06/22/19 17:31 Metoprolol Tartrate (Lopressor) 100 mg Q12HR GT 06/10/19 09:00 09/08/19 08:59 06/23/19 09:47 Multivitamins (Multivitamins W/ Minerals 15ml Liquid) 15 ml DAILY GT 06/11/19 09:00 07/11/19 08:59 06/23/19 09:47 Sodium Chloride 1,000 ml @ 125 mls/hr Q8H IV 06/22/19 19:30 07/22/19 19:29 06/23/19 03:00 Vitamin B Complex/ Vit C/Folic Acid (Nephrovite) 1 tab DAILY GT 06/11/19 09:00 07/11/19 08:59 06/23/19 09:47 Farnaz Lyle MD June 23, 2019 11:08
--- NOTE | 2019-06-23 11:21 | NUR ---
CASE MANAGEMENT: REVIEW 06/23/2019 SI:pneumonia with pseudomonas VS: T 97.9 HR 75 RR 17 B/P 154/54 SATS 100% ON MECH VENT FIO2 35 LABS: Sodium Level 139, Potassium Level 3.2L, Chloride Level 97L, Carbon Dioxide Level 34H, Anion Gap 8, Blood Urea Nitrogen 131H, Creatinine 3.0H, Estimat Glomerular Filtration Rate 24.7, Glucose Level 223H, Calcium Level 8.5 IS:NS @ 125 ML/HR LIPITOR GT QHS PREVACID GT QD CEFEPIME IV Q24H LOPRESSOR GT Q12H PLAN OF CARE: vent management monitor urine output and labs feeds as tolerated hold dc pending improvement in wbc
--- NOTE | 2019-06-23 11:27 | NUR ---
INSURANCE REVIEW AND PROGRESS NOTES FAXED TO [facility] tracking# [id number] KELSEY Jiménez # [phone] ext [phone] fax# [phone]
--- NOTE | 2019-06-23 11:30 | NUR ---
NURSE NOTES: Dr. Frank made aware that patient's potassium level is 3.2 today. With order to give 40meq x 1 via GT.
[2019-06-23 12:00] VITALS: BP 158/69
[2019-06-23] MEDS ORDERED: Cefepime HCl 2 GM in D5W 55 ML IVPB ONE (12:30)
--- NOTE | 2019-06-23 13:18 | NUR ---
RD ASSESSMENT & RECOMMENDATIONS SEE CARE ACTIVITY FOR COMPLETE ASSESSMENT DAILY ESTIMATED NEEDS: Needs based on Renal, critical care, wound/ 62kg 22-28 kcals/kg 4257-6067 total kcals 1-1.25 (increase w/ renal improvement) g protein/kg 62-78 g total protein 20-25 mL/kg 9525-5679 total fluid mLs NUTRITION DIAGNOSIS: * Swallowing difficulty R/T respiratory failure, dysphagia as evidenced by trach/vent dep, PEG dep * Increased kcal/prot needs R/T wound healing as evidenced by admitted w/ multiple pressure injuries including full thickness at L sacrum. CURRENT TF:Nepro @ 45ml/hr x 24 hrs ENTERAL NUTRITION RECOMMENDATIONS: LOWER NEPRO to 40ml/hr x 24 hrs to provide 960ml, 1728 kcal,m 78g pro, 698ml free H2O * Rec lower TF to goal of 40ml/hr x24 hrs to not exceed est kcal needs (BG elevated 161-215) * HOB over 30 degrees/ water flush per MD ADDITIONAL RECOMMENDATIONS: * Per SNF: HT=64" QM=594 lbs (Vs EMR wt of 150lbs) -> obtain re-calibrated bedscale wt * Monitor lytes and renal fxn, need to continue Nepro K critical, maintain Nepro; lower rate to 40ml/hr * BG elevated, continue bed side BG w/ niss * Wound healing: Vit C dose per nephro , add Garo BID via PEG
[2019-06-23 16:00] VITALS: BP 159/67
--- NOTE | 2019-06-23 16:00 | NUR ---
NURSE NOTES: Bed bath provided by 2 staff.
--- NOTE | 2019-06-23 18:22 | Nephrology Progress Note ---
Assessment/Plan Problem List: (1) Hypokalemia (2) CKD (chronic kidney disease) stage 5, GFR less than 15 ml/min (3) Anasarca (4) Pulmonary edema (5) Chronic respiratory failure (6) Uremia (7) Hyperkalemia (8) Malnutrition (9) Leukocytosis Plan c, , kcl gfr 7, avoid nephrotoxins, has had good diuresis, fever, on broad spectrum atb, bun higher dc lasix for now, high K treated, now low K replace, hydrate, leukocytosis ID reassessing Subjective ROS Limited/Unobtainable: Yes Objective Objective Last 24 Hour Vital Signs Date Time Temp Pulse Resp B/P (MAP) Pulse Ox O2 Delivery O2 Flow Rate FiO2 06/23/19 17:02 82 16 35 06/23/19 16:00 72 06/23/19 16:00 98.9 72 16 159/67 (97) 99 06/23/19 16:00 35 06/23/19 16:00 Mechanical Ventilator 06/23/19 14:54 77 18 35 06/23/19 12:00 Mechanical Ventilator 06/23/19 12:00 98.5 74 16 158/69 (98) 100 06/23/19 12:00 35 06/23/19 11:40 74 06/23/19 11:15 75 16 35 06/23/19 09:47 72 154/54 06/23/19 09:10 72 16 35 06/23/19 08:00 97.9 75 17 154/54 (87) 100 06/23/19 08:00 35 06/23/19 08:00 Mechanical Ventilator 06/23/19 07:58 73 06/23/19 07:25 74 16 35 06/23/19 05:10 75 16 35 06/23/19 04:00 97.9 75 16 145/58 (87) 100 06/23/19 04:00 Mechanical Ventilator 06/23/19 04:00 35 06/23/19 03:32 74 06/23/19 03:24 74 16 35 06/23/19 00:44 72 17 35 06/23/19 00:00 75 06/23/19 00:00 Mechanical Ventilator 06/23/19 00:00 97.9 74 16 133/54 (80) 100 06/22/19 23:15 77 19 35 06/22/19 21:07 72 17 35 06/22/19 20:29 86 135/55 06/22/19 20:00 35 06/22/19 20:00 Mechanical Ventilator 06/22/19 20:00 97.7 86 19 135/55 (81) 99 06/22/19 19:29 87 06/22/19 19:02 76 18 35 Intake and Output 06/22/19 06/23/19 19:00 07:00 Intake Total 740 ml 1929.583 ml Output Total 350 ml 750 ml Balance 390 ml 1179.583 ml Intake Free Water 200 ml 200 ml IV Total 1189.583 ml Tube Feeding 540 ml 540 ml Output Urine Total 350 ml 750 ml Laboratory Tests 06/23/19 06:30: Sodium Level 139, Potassium Level 3.2L, Chloride Level 97L, Carbon Dioxide Level 34H, Anion Gap 8, Blood Urea Nitrogen 131H, Creatinine 3.0H, Estimat Glomerular Filtration Rate 24.7, Glucose Level 223H, Calcium Level 8.5 Height (Feet): 5 Height (Inches): 4.00 Weight (Pounds): 150 General Appearance: mild distress EENT: other - trach vent Cardiovascular: regular rhythm Respiratory/Chest: rhonchi - bilaterally Extremities: no edema Neurologic: unresponsive Carmelo Frank MD June 23, 2019 18:22
--- NOTE | 2019-06-23 19:11 | NUR ---
HAND-OFF: Report given to Ana Evans RN.
--- NOTE | 2019-06-23 19:12 | NUR ---
NURSE NOTES: received pt from Sara DAVEY., pt is on the bed awake and resting on the bed.obtunded. pt is on trach, O2sat is at 99% no SOB noted. pt is on Gtube, and clean, intact, and patent. kat cath in place draining well with gravity. right hand 22 G and left FA 22G IV site intact, clean, and patent. call light within reach. bed at the lowest position, alarmed, and locked. will continue to monitor pt with plan of care.
[2019-06-23 20:00] VITALS: BP 146/54
[2019-06-23] MEDS: Epoetin Alfa-EPBX (NON ESRD) 3000 units/ml vial SUBQ SCH (20:20)
[2019-06-23] MEDS: Epoetin Alfa-EPBX (NON ESRD)4000 units/ml vial SUBQ SCH (20:20)
[2019-06-23] MEDS: Atorvastatin 20mg tab GT SCH (20:20)
[2019-06-23] MEDS: Cefepime 1gm in D5W 55ml IVPB SCH (23:53)
[2019-06-24] VITALS: BP 136/67
[2019-06-24 04:00] VITALS: BP 146/60
--- NOTE | 2019-06-24 06:00 | NUR ---
NURSE NOTES: repositioned pt Q 2hrs, provide new gown, oral care given. no SOB noted. pt is resting on the bed. call light within reach.
[2019-06-24] MEDS: Ferrous Sulfate 300 MG/5 ML UDC GT SCH ×3 (06:06→21:03)
[2019-06-24] MEDS: NovoLOG Insulin Flexpen SUBQ SCH ×3 (06:07→17:19)
--- NOTE | 2019-06-24 07:28 | NUR ---
HAND-OFF: Report given to Bailee DAVEY. pt remain stable condition, endorsed plan of care.
[2019-06-24 08:00] VITALS: BP 132/60
--- NOTE | 2019-06-24 08:00 | NUR ---
received pt from colt wright skin warm and dry to touch , on vent tolerate well ,no resp distress observed
[2019-06-24] MEDS: Metoprolol Tartrate 100mg tab GT SCH ×2 (09:04→21:03)
[2019-06-24] MEDS: Multivitamins W/Minerals 15 ML UDC GT SCH (09:05)
[2019-06-24] MEDS: Nephrovite tab (Rena-Vite) GT SCH (09:05)
[2019-06-24] MEDS: Ascorbic Acid 500mg tab GT SCH (09:05)
[2019-06-24] MEDS: Heparin 5000 units/ml inj SUBQ SCH ×2 (09:06→21:04)
[2019-06-24 09:36] LABS: ANION GAP 8 mmol/L (5-15); BLOOD UREA NITROGEN 112 mg/dL (7-18); CALCIUM 8.6 MG/DL (8.5-10.1); CARBON DIOXIDE 29 MMOL/L (21-32); CHLORIDE 100 MMOL/L (98-107); CREATININE 2.4 MG/DL (0.55-1.30); POTASSIUM 3.9 MMOL/L (3.5-5.1); SODIUM 137 MMOL/L (136-145)
--- NOTE | 2019-06-24 10:11 | Pulmonology Progress Note ---
Subjective ROS Limited/Unobtainable: Yes Constitutional: Denies: fever Gastrointestinal/Abdominal: Reports: diarrhea Allergies: Coded Allergies: No Known Allergies (Unverified , 06/10/19) Subjective reviewed care consultants noted no labs today on vent Objective Last 24 Hour Vital Signs Date Time Temp Pulse Resp B/P (MAP) Pulse Ox O2 Delivery O2 Flow Rate FiO2 06/24/19 09:04 75 132/60 06/24/19 08:34 76 20 35 06/24/19 07:06 71 16 35 06/24/19 05:05 71 18 35 06/24/19 04:00 69 06/24/19 04:00 35 06/24/19 04:00 Mechanical Ventilator 06/24/19 04:00 97.8 75 16 146/60 (88) 100 06/24/19 03:09 70 17 35 06/24/19 00:34 67 16 35 06/24/19 00:00 Mechanical Ventilator 06/24/19 00:00 97.3 69 18 136/67 (90) 100 06/23/19 23:48 67 06/23/19 23:03 69 16 35 06/23/19 20:34 69 16 35 06/23/19 20:25 74 146/54 06/23/19 20:04 68 06/23/19 20:00 35 06/23/19 20:00 Mechanical Ventilator 06/23/19 20:00 97.7 73 16 146/54 (84) 100 06/23/19 19:25 69 18 35 06/23/19 17:02 82 16 35 06/23/19 16:00 72 06/23/19 16:00 98.9 72 16 159/67 (97) 99 06/23/19 16:00 35 06/23/19 16:00 Mechanical Ventilator 06/23/19 14:54 77 18 35 06/23/19 12:00 Mechanical Ventilator 06/23/19 12:00 98.5 74 16 158/69 (98) 100 06/23/19 12:00 35 06/23/19 11:40 74 06/23/19 11:15 75 16 35 Intake and Output 06/23/19 06/24/19 19:00 07:00 Intake Total 2440 ml 1275 ml Output Total 900 ml 800 ml Balance 1540 ml 475 ml Intake Free Water 200 ml 200 ml IV Total 1555 ml 625 ml Tube Feeding 585 ml 450 ml Other 100 ml Output Urine Total 900 ml 800 ml # Bowel Movements 1 1 Objective WDWN NAD trach and gt clear breath sounds bilaterally without rhonchi or wheeze [id number] without MRG NABS nontender no HSM no CC noted edema better scrotal edema nonfocal reviewed and edited Laboratory Tests 06/24/19 09:00: Sodium Level 137, Potassium Level 3.9, Chloride Level 100, Carbon Dioxide Level 29, Anion Gap 8, Blood Urea Nitrogen 112H, Creatinine 2.4H, Estimat Glomerular Filtration Rate 32.0, Glucose Level 132H, Calcium Level 8.6 Current Medications Medications (Trade) Dose Ordered Sig/Leonel Route PRN Reason Start Time Stop Time Status Last Admin Dose Admin Acetaminophen (Tylenol) 650 mg Q4H PRN NG Temp >100.5 06/10/19 21:00 07/10/19 20:59 06/19/19 15:42 Ascorbic Acid (Vitamin C) 500 mg DAILY GT 06/11/19 09:00 07/11/19 08:59 06/24/19 09:05 Atorvastatin Calcium (Lipitor) 40 mg BEDTIME GT 06/10/19 21:00 09/08/19 20:59 06/23/19 20:20 Cefepime HCl 1 gm/ Dextrose 55 ml @ 110 mls/hr Q24H IVPB 06/24/19 00:30 07/01/19 00:29 06/23/19 23:53 Dextrose (Dextrose 50%) 25 ml Q30M PRN IV Hypoglycemia 06/10/19 21:00 09/08/19 20:59 Dextrose (Dextrose 50%) 50 ml Q30M PRN IV Hypoglycemia 06/10/19 21:00 09/08/19 20:59 Epoetin Andreas (Epoetin Andreas-EPBX(NON ESRD)) 3,000 unit WED-WED-WED SUBQ 06/19/19 21:00 09/17/19 20:59 06/23/19 20:20 Epoetin Andreas (Epoetin Andreas-EPBX(NON ESRD)) 4,000 unit WED-WED-WED SUBQ 06/19/19 21:00 09/17/19 20:59 06/23/19 20:20 Ferrous Sulfate (Feosol) 300 mg EVERY 8 HOURS GT 06/18/19 22:00 09/09/19 08:59 06/24/19 06:06 Heparin Sodium (Porcine) (Heparin 5000 units/ml) 5,000 units EVERY 12 HOURS SUBQ 06/10/19 21:00 07/25/19 20:59 06/24/19 09:06 Insulin Aspart (NovoLOG) Q6HR SUBQ 06/11/19 12:00 09/08/19 21:59 06/24/19 06:07 Lansoprazole (Prevacid) 30 mg DAILY GT 06/20/19 09:00 07/20/19 08:59 06/24/19 09:04 Loperamide HCl (Imodium) 2 mg Q6H PRN NG Diarrhea 06/17/19 08:30 07/17/19 08:29 06/22/19 17:31 Metoprolol Tartrate (Lopressor) 100 mg Q12HR GT 06/10/19 09:00 09/08/19 08:59 06/24/19 09:04 Multivitamins (Multivitamins W/ Minerals 15ml Liquid) 15 ml DAILY GT 06/11/19 09:00 07/11/19 08:59 06/24/19 09:05 Sodium Chloride 1,000 ml @ 125 mls/hr Q8H IV 06/22/19 19:30 07/22/19 19:29 06/24/19 03:32 Vitamin B Complex/ Vit C/Folic Acid (Nephrovite) 1 tab DAILY GT 06/11/19 09:00 07/11/19 08:59 06/24/19 09:05 Assessment/Plan Assessment/Plan Anasarca Pulmonary edema scrotal edema Uremia Chronic respiratory failure on Ventilator Hypertension Diabetes Previous pneumonia Subdural hematoma Bedbound Tracheostomy dependent leukocytosis possible sepsis severe PCM anemia diarrhea negative Cdif PLAN vent ongoing renal and ID noted antibiotics reviewed cultures noted monitor urine output and labs feeds as tolerated protein and supplement repeat labs today impression, plan, and exam edited and reviewed in detail care discussed with Kain Tovar MD June 24, 2019 10:11
[2019-06-24 10:45] LABS: BASOPHILS % (AUTO) 0.6 % (0.0-2.0); EOSINOPHILS % (AUTO) 9.6 % (0.0-3.0); HEMATOCRIT 27.7 % (42.0-52.0); HEMOGLOBIN 9.1 G/DL (14.2-18.0); LYMPHOCYTES % (AUTO) 12.6 % (20.0-45.0); MEAN CORPUSCULAR VOLUME 82 FL (80-99); MONOCYTES % (AUTO) 7.2 % (1.0-10.0); NEUTROPHILS % (AUTO) 69.9 % (45.0-75.0); PLATELET COUNT 532 K/UL (150-450); RED BLOOD COUNT 3.37 M/UL (4.70-6.10); RED CELL DISTRIBUTION WIDTH 17.2 % (11.6-14.8); WHITE BLOOD COUNT 15.4 K/UL (4.8-10.8)
--- NOTE | 2019-06-24 11:05 | Infectious Diseases Prog Note ---
Assessment/Plan Assessment/Plan antibiotics : cefepime A 1. pneumonia with pseudomonas COVID 19 test negative 5,3,20, 5.12.20 2. respiratory failure 3. leucocytosis improving 4. diabetes mellitus 5. hypertension 6. renal failure improving 7. SDH 8. + blood cultures with coag neg staph likely contaminated 9. QT prolongation P 1. continue cefepime 5 more days 2. will follow up cultures Subjective ROS Limited/Unobtainable: Yes Allergies: Coded Allergies: No Known Allergies (Unverified , 06/10/19) Objective Vital Signs Last 24 Hour Vital Signs Date Time Temp Pulse Resp B/P (MAP) Pulse Ox O2 Delivery O2 Flow Rate FiO2 06/24/19 09:04 75 132/60 06/24/19 08:34 76 20 35 06/24/19 07:06 71 16 35 06/24/19 05:05 71 18 35 06/24/19 04:00 69 06/24/19 04:00 35 06/24/19 04:00 Mechanical Ventilator 06/24/19 04:00 97.8 75 16 146/60 (88) 100 06/24/19 03:09 70 17 35 06/24/19 00:34 67 16 35 06/24/19 00:00 Mechanical Ventilator 06/24/19 00:00 97.3 69 18 136/67 (90) 100 06/23/19 23:48 67 06/23/19 23:03 69 16 35 06/23/19 20:34 69 16 35 06/23/19 20:25 74 146/54 06/23/19 20:04 68 06/23/19 20:00 35 06/23/19 20:00 Mechanical Ventilator 06/23/19 20:00 97.7 73 16 146/54 (84) 100 06/23/19 19:25 69 18 35 06/23/19 17:02 82 16 35 06/23/19 16:00 72 06/23/19 16:00 98.9 72 16 159/67 (97) 99 06/23/19 16:00 35 06/23/19 16:00 Mechanical Ventilator 06/23/19 14:54 77 18 35 06/23/19 12:00 Mechanical Ventilator 06/23/19 12:00 98.5 74 16 158/69 (98) 100 06/23/19 12:00 35 06/23/19 11:40 74 06/23/19 11:15 75 16 35 Height (Feet): 5 Height (Inches): 4.00 Weight (Pounds): 150 HEENT: status post trach Respiratory/Chest: lungs clear Cardiovascular: normal rate, regular rhythm, no gallop/murmur Abdomen: soft, non tender, other - GT Extremities: no edema Laboratory Tests Test 06/24/19 09:00 White Blood Count 15.4 K/UL (4.8-10.8) H Red Blood Count 3.37 M/UL (4.70-6.10) L Hemoglobin 9.1 G/DL (14.2-18.0) L Hematocrit 27.7 % (42.0-52.0) L Mean Corpuscular Volume 82 FL (80-99) Mean Corpuscular Hemoglobin 26.9 PG (27.0-31.0) L Mean Corpuscular Hemoglobin Concent 32.8 G/DL (32.0-36.0) Red Cell Distribution Width 17.2 % (11.6-14.8) H Platelet Count 532 K/UL (150-450) H Mean Platelet Volume 5.4 FL (6.5-10.1) L Neutrophils (%) (Auto) 69.9 % (45.0-75.0) Lymphocytes (%) (Auto) 12.6 % (20.0-45.0) L Monocytes (%) (Auto) 7.2 % (1.0-10.0) Eosinophils (%) (Auto) 9.6 % (0.0-3.0) H Basophils (%) (Auto) 0.6 % (0.0-2.0) Sodium Level 137 MMOL/L (136-145) Potassium Level 3.9 MMOL/L (3.5-5.1) Chloride Level 100 MMOL/L (98-107) Carbon Dioxide Level 29 MMOL/L (21-32) Anion Gap 8 mmol/L (5-15) Blood Urea Nitrogen 112 mg/dL (7-18) H Creatinine 2.4 MG/DL (0.55-1.30) H Estimat Glomerular Filtration Rate 32.0 mL/min (>60) Glucose Level 132 MG/DL (74-106) H Calcium Level 8.6 MG/DL (8.5-10.1) Current Medications Medications (Trade) Dose Ordered Sig/Leonel Route PRN Reason Start Time Stop Time Status Last Admin Dose Admin Acetaminophen (Tylenol) 650 mg Q4H PRN NG Temp >100.5 06/10/19 21:00 07/10/19 20:59 06/19/19 15:42 Ascorbic Acid (Vitamin C) 500 mg DAILY GT 06/11/19 09:00 07/11/19 08:59 06/24/19 09:05 Atorvastatin Calcium (Lipitor) 40 mg BEDTIME GT 06/10/19 21:00 09/08/19 20:59 06/23/19 20:20 Cefepime HCl 1 gm/ Dextrose 55 ml @ 110 mls/hr Q24H IVPB 06/24/19 00:30 07/01/19 00:29 06/23/19 23:53 Dextrose (Dextrose 50%) 25 ml Q30M PRN IV Hypoglycemia 06/10/19 21:00 09/08/19 20:59 Dextrose (Dextrose 50%) 50 ml Q30M PRN IV Hypoglycemia 06/10/19 21:00 09/08/19 20:59 Epoetin Andreas (Epoetin Andreas-EPBX(NON ESRD)) 3,000 unit WED-WED-WED SUBQ 06/19/19 21:00 09/17/19 20:59 06/23/19 20:20 Epoetin Andreas (Epoetin Andreas-EPBX(NON ESRD)) 4,000 unit WED-WED-WED SUBQ 06/19/19 21:00 09/17/19 20:59 06/23/19 20:20 Ferrous Sulfate (Feosol) 300 mg EVERY 8 HOURS GT 06/18/19 22:00 09/09/19 08:59 06/24/19 06:06 Heparin Sodium (Porcine) (Heparin 5000 units/ml) 5,000 units EVERY 12 HOURS SUBQ 06/10/19 21:00 07/25/19 20:59 06/24/19 09:06 Insulin Aspart (NovoLOG) Q6HR SUBQ 06/11/19 12:00 09/08/19 21:59 06/24/19 06:07 Lansoprazole (Prevacid) 30 mg DAILY GT 06/20/19 09:00 07/20/19 08:59 06/24/19 09:04 Loperamide HCl (Imodium) 2 mg Q6H PRN NG Diarrhea 06/17/19 08:30 07/17/19 08:29 06/22/19 17:31 Metoprolol Tartrate (Lopressor) 100 mg Q12HR GT 06/10/19 09:00 09/08/19 08:59 06/24/19 09:04 Multivitamins (Multivitamins W/ Minerals 15ml Liquid) 15 ml DAILY GT 06/11/19 09:00 07/11/19 08:59 06/24/19 09:05 Sodium Chloride 1,000 ml @ 125 mls/hr Q8H IV 06/22/19 19:30 07/22/19 19:29 06/24/19 03:32 Vitamin B Complex/ Vit C/Folic Acid (Nephrovite) 1 tab DAILY GT 06/11/19 09:00 07/11/19 08:59 06/24/19 09:05 Farnaz Lyle MD June 24, 2019 11:05
[2019-06-24 12:00] VITALS: BP 146/63
[2019-06-24] MEDS ORDERED: NS 275ml ONE (13:45)
[2019-06-24] MEDS ORDERED: Tubing IV Secondary IV ONE (13:45)
[2019-06-24] MEDS ORDERED: 1/2 NS 1000ml IV ONE (13:45)
--- NOTE | 2019-06-24 14:38 | Surgery Progress Note ---
Surgery Progress Note Subjective Additional Comments labs reviewed exam stable ill appearing Objective Last 24 Hour Vital Signs Date Time Temp Pulse Resp B/P (MAP) Pulse Ox O2 Delivery O2 Flow Rate FiO2 06/24/19 13:36 67 06/24/19 12:48 68 18 35 06/24/19 12:00 98.2 67 16 146/63 (90) 100 06/24/19 12:00 Mechanical Ventilator 06/24/19 12:00 35 06/24/19 11:05 67 20 35 06/24/19 09:04 75 132/60 06/24/19 08:34 76 20 35 06/24/19 08:00 74 06/24/19 08:00 35 06/24/19 08:00 97.9 76 16 132/60 (84) 100 06/24/19 08:00 Mechanical Ventilator 06/24/19 07:06 71 16 35 06/24/19 05:05 71 18 35 06/24/19 04:00 69 06/24/19 04:00 35 06/24/19 04:00 Mechanical Ventilator 06/24/19 04:00 97.8 75 16 146/60 (88) 100 06/24/19 03:09 70 17 35 06/24/19 00:34 67 16 35 06/24/19 00:00 Mechanical Ventilator 06/24/19 00:00 97.3 69 18 136/67 (90) 100 06/23/19 23:48 67 06/23/19 23:03 69 16 35 06/23/19 20:34 69 16 35 06/23/19 20:25 74 146/54 06/23/19 20:04 68 06/23/19 20:00 35 06/23/19 20:00 Mechanical Ventilator 06/23/19 20:00 97.7 73 16 146/54 (84) 100 06/23/19 19:25 69 18 35 06/23/19 17:02 82 16 35 06/23/19 16:00 72 06/23/19 16:00 98.9 72 16 159/67 (97) 99 06/23/19 16:00 35 06/23/19 16:00 Mechanical Ventilator 06/23/19 14:54 77 18 35 I&O Intake and Output 06/23/19 06/24/19 19:00 07:00 Intake Total 2440 ml 1445 ml Output Total 900 ml 800 ml Balance 1540 ml 645 ml Intake Free Water 200 ml 200 ml IV Total 1555 ml 750 ml Tube Feeding 585 ml 495 ml Other 100 ml Output Urine Total 900 ml 800 ml # Bowel Movements 1 1 Dressing: other Wound: other Drains: other Cardiovascular: RSR Respiratory: decreased breath sounds Abdomen: soft, non-tender, present bowel sounds Extremities: no cyanosis Laboratory Tests Test 06/24/19 09:00 White Blood Count 15.4 K/UL (4.8-10.8) H Red Blood Count 3.37 M/UL (4.70-6.10) L Hemoglobin 9.1 G/DL (14.2-18.0) L Hematocrit 27.7 % (42.0-52.0) L Mean Corpuscular Volume 82 FL (80-99) Mean Corpuscular Hemoglobin 26.9 PG (27.0-31.0) L Mean Corpuscular Hemoglobin Concent 32.8 G/DL (32.0-36.0) Red Cell Distribution Width 17.2 % (11.6-14.8) H Platelet Count 532 K/UL (150-450) H Mean Platelet Volume 5.4 FL (6.5-10.1) L Neutrophils (%) (Auto) 69.9 % (45.0-75.0) Lymphocytes (%) (Auto) 12.6 % (20.0-45.0) L Monocytes (%) (Auto) 7.2 % (1.0-10.0) Eosinophils (%) (Auto) 9.6 % (0.0-3.0) H Basophils (%) (Auto) 0.6 % (0.0-2.0) Sodium Level 137 MMOL/L (136-145) Potassium Level 3.9 MMOL/L (3.5-5.1) Chloride Level 100 MMOL/L (98-107) Carbon Dioxide Level 29 MMOL/L (21-32) Anion Gap 8 mmol/L (5-15) Blood Urea Nitrogen 112 mg/dL (7-18) H Creatinine 2.4 MG/DL (0.55-1.30) H Estimat Glomerular Filtration Rate 32.0 mL/min (>60) Glucose Level 132 MG/DL (74-106) H Calcium Level 8.6 MG/DL (8.5-10.1) Plan Problems: (1) Decubitus skin ulcer Assessment & Plan: Pt presented on admission with generalized edema,grossly enlarged scrotum, contractures and multiple pressure injuries. Full thickness stage 4 pressure injury L Sacrum (L)1.6cm x (W)1.8cm x (D)0.3cm. Base of wound has 40% slough,60% beefy red. Borders are macerated. Small amt sanguineus exudate noted. Wound noted to be within field of previous wound. Periwound, skin tone is darker without induration or fluctuance. Scattered areas of hyperpigmentation from previous wounds noted to R and L Buttocks. Grossly enlarged and erythematous scrotum . Clusters of linear partial thickness ulcers noted at base of scrotum.moderate amt of serous exudate noted .Shaft of penis is grossly edematous. DTPI noted to medial L heel. Base of wound is maroon and fluctuant. (L)4cm x (W) 4.5cm. R heel is boggy with non-blanching erythema. Tx.Plan: Cleanse Sacral wound with Saline. Apply TheraHoney.Apply Moisture Barrier Paste periwound. Cover with Optifoam drsg. Change every 3 days and prn. Apply Moisture Barrier Paste to Bilat groin and scrotum with each Incontinence care. Cover each trochanter/Hips areas with Optifoam drsgs. Change every 7 days and prn. Apply Cavilon Skin Barrier to both heels. Cover each heel with Optifoam drsg. Change every 7 days and prn. Reposition at least every 2hours or as tolerated. Off-load heels with Pillow. APM/BECCA Mattress overlay. (2) Malnutrition Assessment & Plan: DAILY ESTIMATED NEEDS: Needs based on Renal, critical care, wound/ 62kg 22-28 kcals/kg 3253-4266 total kcals 1-1.25 (increase w/ renal improvement) g protein/kg 62-78 g total protein 20-25 mL/kg 9481-5762 total fluid mLs NUTRITION DIAGNOSIS: * Swallowing difficulty R/T respiratory failure, dysphagia as evidenced by trach/vent dep, PEG dep * Increased kcal/prot needs R/T wound healing as evidenced by admitted w/ multiple pressure injuries including full thickness at L sacrum. CURRENT TF:Jane @ 45ml/hr x 24 hrs ENTERAL NUTRITION RECOMMENDATIONS: LOWER NEPRO to 40ml/hr x 24 hrs to provide 960ml, 1728 kcal,m 78g pro, 698ml free H2O * Rec lower TF to goal of 40ml/hr x24 hrs to not exceed est kcal needs (BG elevated) * HOB over 30 degrees/ water flush per MD ADDITIONAL RECOMMENDATIONS: * Per SNF: HT=64" BB=532 lbs (Vs EMR wt of 150lbs) -> obtain re-calibrated bedscale wt * Monitor lytes and renal fxn, need to continue Nepro K critical, maintain Nepro; lower rate to 40ml/hr * BG elevated, continue bed side BG w/ niss * Wound healing: Vit C dose per nephnicole RUSS, add Garo BID via PEG (3) Chronic respiratory failure Assessment & Plan: FINDINGS: Hardware: Tracheostomy tube terminates in the region of the upper/mid thoracic trachea. Lungs/pleura: Bilateral pleural effusions. Opacities throughout right greater than left lungs, concerning for pulmonary edema and/or infectious/inflammatory process. Heart/mediastinum: Mild enlargement of the cardiac silhouette. Atherosclerotic calcifications of the aorta. Left-sided pacemaker. Soft tissues: Unremarkable. Bones: No acute fracture. Degenerative changes of the spine Upper abdomen: Normal. IMPRESSION: Bilateral pleural effusions. Opacities throughout right greater than left lungs, concerning for pulmonary edema and/or infectious/inflammatory process. Trach Care (4) Anasarca (5) Leukocytosis Assessment & Plan: Patient identified to have significant leukocytosis, anemia , abnormal labs. Albumin low. Renal insufficiency. Anasarca. Microbiology noted Sputum sample resulted Antibiotics per infectious disease Wound evaluated likely etiology of patient's infectious source Will monitor closely and provide assistance thank you for let me participate in patient's care wbc persistent and elevated Levaq for 3 more days Jonathan Urias June 24, 2019 14:38
[2019-06-24 16:00] VITALS: BP 138/52
--- NOTE | 2019-06-24 19:30 | NUR ---
NURSE NOTES: Received patient from TAMICA Carter.
--- NOTE | 2019-06-24 19:30 | NUR ---
report given to odette wright
--- NOTE | 2019-06-24 19:58 | Nephrology Progress Note ---
Assessment/Plan Problem List: (1) Hypokalemia (2) CKD (chronic kidney disease) stage 5, GFR less than 15 ml/min (3) Anasarca (4) Pulmonary edema (5) Chronic respiratory failure (6) Uremia (7) Hyperkalemia (8) Malnutrition (9) Leukocytosis Plan c, , kcl gfr 7, avoid nephrotoxins, has had good diuresis, fever, on broad spectrum atb, bun higher dc lasix for now, high K treated, now low K replace, hydrate,reduced iv rate leukocytosis ID reassessing Subjective ROS Limited/Unobtainable: Yes Objective Objective Last 24 Hour Vital Signs Date Time Temp Pulse Resp B/P (MAP) Pulse Ox O2 Delivery O2 Flow Rate FiO2 06/24/19 16:41 76 19 35 06/24/19 16:00 35 06/24/19 16:00 Mechanical Ventilator 06/24/19 16:00 98.1 77 16 138/52 (80) 100 06/24/19 16:00 65 06/24/19 15:43 63 16 35 06/24/19 13:36 67 06/24/19 12:48 68 18 35 06/24/19 12:00 98.2 67 16 146/63 (90) 100 06/24/19 12:00 Mechanical Ventilator 06/24/19 12:00 35 06/24/19 11:05 67 20 35 06/24/19 09:04 75 132/60 06/24/19 08:34 76 20 35 06/24/19 08:00 74 06/24/19 08:00 35 06/24/19 08:00 97.9 76 16 132/60 (84) 100 06/24/19 08:00 Mechanical Ventilator 06/24/19 07:06 71 16 35 06/24/19 05:05 71 18 35 06/24/19 04:00 69 06/24/19 04:00 35 06/24/19 04:00 Mechanical Ventilator 06/24/19 04:00 97.8 75 16 146/60 (88) 100 06/24/19 03:09 70 17 35 06/24/19 00:34 67 16 35 06/24/19 00:00 Mechanical Ventilator 06/24/19 00:00 97.3 69 18 136/67 (90) 100 06/23/19 23:48 67 06/23/19 23:03 69 16 35 06/23/19 20:34 69 16 35 06/23/19 20:25 74 146/54 06/23/19 20:04 68 06/23/19 20:00 35 06/23/19 20:00 Mechanical Ventilator 06/23/19 20:00 97.7 73 16 146/54 (84) 100 Intake and Output 06/23/19 06/24/19 19:00 07:00 Intake Total 2440 ml 1445 ml Output Total 900 ml 800 ml Balance 1540 ml 645 ml Intake Free Water 200 ml 200 ml IV Total 1555 ml 750 ml Tube Feeding 585 ml 495 ml Other 100 ml Output Urine Total 900 ml 800 ml # Bowel Movements 1 1 Laboratory Tests 06/24/19 09:00: White Blood Count 15.4H, Red Blood Count 3.37L, Hemoglobin 9.1L, Hematocrit 27.7L, Mean Corpuscular Volume 82, Mean Corpuscular Hemoglobin 26.9L, Mean Corpuscular Hemoglobin Concent 32.8, Red Cell Distribution Width 17.2H, Platelet Count 532H, Mean Platelet Volume 5.4L, Neutrophils (%) (Auto) 69.9, Lymphocytes (%) (Auto) 12.6L, Monocytes (%) (Auto) 7.2, Eosinophils (%) (Auto) 9.6H, Basophils (%) (Auto) 0.6, Sodium Level 137, Potassium Level 3.9, Chloride Level 100, Carbon Dioxide Level 29, Anion Gap 8, Blood Urea Nitrogen 112H, Creatinine 2.4H, Estimat Glomerular Filtration Rate 32.0, Glucose Level 132H, Calcium Level 8.6 Height (Feet): 5 Height (Inches): 4.00 Weight (Pounds): 150 General Appearance: lethargic, cachetic Cardiovascular: regular rhythm Respiratory/Chest: rhonchi - bilaterally Abdomen: soft Extremities: no edema Neurologic: unresponsive, aphasia Carmelo Frank MD June 24, 2019 19:58
[2019-06-24 20:00] VITALS: BP 133/54
[2019-06-24] MEDS: Atorvastatin 20mg tab GT SCH (21:02)
--- NOTE | 2019-06-24 21:50 | NUR ---
NURSE NOTES: Patient is asleep in bed. Patient on mechanical ventilator setting of AC 16, TV 450, FiO2 35%, and peep 5 with o2 sat of 100%. G-tube secured and patent with Nepro running at 45ml/hour. Patient with kat catheter patent and draining yellow urine. Right hand 24G and left forearm 22G intact and asymptomatic. Will continue to monitor. Bed at lowest position and brakes engaged. Call light witihin reach.
[2019-06-25] VITALS: BP 132/52
[2019-06-25] MEDS: NovoLOG Insulin Flexpen SUBQ SCH ×5 (00:26→23:56)
[2019-06-25] MEDS: Cefepime 1gm in D5W 55ml IVPB SCH ×2 (00:27→23:56)
[2019-06-25 04:00] VITALS: BP 132/52
[2019-06-25] MEDS: Ferrous Sulfate 300 MG/5 ML UDC GT SCH ×3 (05:14→21:16)
--- NOTE | 2019-06-25 07:00 | NUR ---
NURSE NOTES: received patient report from vick wright. patient is on bed asleep. not in acute distress. on 3 Li NC. ambulatory, steady. hep drip running at prescribed rate for high troponin. will follow plan of care. Addendum: 06/25/19 at 0730 by JESSIE MARTINEZ RN disregard note above
--- NOTE | 2019-06-25 07:15 | NUR ---
NURSE NOTES: received patient report from vick wright. patient is on bed asleep. not in acute distress. on vent at prescribed rate. NSR on the monitor. will follow plan of care.
--- NOTE | 2019-06-25 07:26 | NUR ---
HAND-OFF: Report given to TAMICA Olvera.
--- NOTE | 2019-06-25 07:31 | NUR ---
NURSE NOTES: pt remains stable condition, endorsed plan of care. no SOB noted at this time.
[2019-06-25 07:57] VITALS: BP 143/64
[2019-06-25] MEDS: Ascorbic Acid 500mg tab GT SCH (08:00)
[2019-06-25] MEDS: Nephrovite tab (Rena-Vite) GT SCH (08:00)
[2019-06-25] MEDS: Metoprolol Tartrate 100mg tab GT SCH ×2 (08:00→21:12)
[2019-06-25] MEDS: Multivitamins W/Minerals 15 ML UDC GT SCH (08:01)
[2019-06-25] MEDS: Heparin 5000 units/ml inj SUBQ SCH ×2 (08:01→21:16)
[2019-06-25 11:25] LABS: BASOPHILS % (AUTO) 0.8 % (0.0-2.0); EOSINOPHILS % (AUTO) 11.1 % (0.0-3.0); HEMATOCRIT 29.4 % (42.0-52.0); HEMOGLOBIN 9.1 G/DL (14.2-18.0); LYMPHOCYTES % (AUTO) 12.7 % (20.0-45.0); MEAN CORPUSCULAR VOLUME 84 FL (80-99); MONOCYTES % (AUTO) 7.3 % (1.0-10.0); PLATELET COUNT 510 K/UL (150-450); RED BLOOD COUNT 3.49 M/UL (4.70-6.10); RED CELL DISTRIBUTION WIDTH 17.1 % (11.6-14.8); WHITE BLOOD COUNT 15.6 K/UL (4.8-10.8)
[2019-06-25 11:45] LABS: ANION GAP 11 mmol/L (5-15); BLOOD UREA NITROGEN 101 mg/dL (7-18); CALCIUM 8.3 MG/DL (8.5-10.1); CARBON DIOXIDE 27 MMOL/L (21-32); CHLORIDE 99 MMOL/L (98-107); CREATININE 2.2 MG/DL (0.55-1.30); POTASSIUM 3.4 MMOL/L (3.5-5.1); SODIUM 137 MMOL/L (136-145)
[2019-06-25 11:50] VITALS: BP 143/61
--- NOTE | 2019-06-25 12:13 | Infectious Diseases Prog Note ---
Assessment/Plan Assessment/Plan A 1. pneumonia with streptococcus, pseudomonas, Stenotrophomonas COVID19 test negative 5,3 & 06/19 2. Ventilatory dependent respiratory failure 3. Leucocytosis 4. Diabetes mellitus 5. hypertension 6. renal failure 7. SDH 8. + blood cultures with coag neg staph likely contaminated 9. QT prolongation 10. Diarrhea, C. difficile: negative P 1. Continue Cefepime X 4 days Subjective ROS Limited/Unobtainable: Yes Allergies: Coded Allergies: No Known Allergies (Unverified , 06/10/19) Objective Vital Signs Last 24 Hour Vital Signs Date Time Temp Pulse Resp B/P (MAP) Pulse Ox O2 Delivery O2 Flow Rate FiO2 06/25/19 11:50 97.7 67 16 143/61 (88) 100 06/25/19 11:26 67 06/25/19 11:16 68 20 30 06/25/19 09:11 64 16 30 06/25/19 08:00 Mechanical Ventilator 06/25/19 08:00 35 06/25/19 08:00 72 143/64 06/25/19 07:57 97.9 72 16 143/64 (90) 100 06/25/19 07:52 69 06/25/19 07:44 70 17 30 06/25/19 05:24 68 18 30 06/25/19 04:06 71 06/25/19 04:00 Mechanical Ventilator 06/25/19 04:00 35 06/25/19 04:00 98.4 72 16 132/52 (78) 100 06/25/19 04:00 35 06/25/19 04:00 Mechanical Ventilator 06/25/19 03:29 71 21 35 06/25/19 01:33 71 16 35 06/25/19 00:00 98.2 69 16 132/52 (78) 100 06/25/19 00:00 Mechanical Ventilator 06/24/19 23:45 70 06/24/19 23:29 69 17 35 06/24/19 21:06 70 17 35 06/24/19 21:03 68 133/54 06/24/19 20:00 Mechanical Ventilator 06/24/19 20:00 35 06/24/19 20:00 98.4 68 16 133/54 (80) 100 06/24/19 19:36 72 06/24/19 19:25 71 16 35 06/24/19 16:41 76 19 35 06/24/19 16:00 35 06/24/19 16:00 Mechanical Ventilator 06/24/19 16:00 98.1 77 16 138/52 (80) 100 06/24/19 16:00 65 06/24/19 15:43 63 16 35 06/24/19 13:36 67 06/24/19 12:48 68 18 35 Height (Feet): 5 Height (Inches): 4.00 Weight (Pounds): 150 General Appearance: no acute distress HEENT: mucous membranes moist, status post trach Respiratory/Chest: lungs clear, other - on ventilatoer Cardiovascular: normal rate Abdomen: soft, non tender, other - GT feeding Extremities: no edema Neurologic/Psychiatric: aphasia Laboratory Tests Test 06/25/19 09:30 White Blood Count 15.6 K/UL (4.8-10.8) H Red Blood Count 3.49 M/UL (4.70-6.10) L Hemoglobin 9.1 G/DL (14.2-18.0) L Hematocrit 29.4 % (42.0-52.0) L Mean Corpuscular Volume 84 FL (80-99) Mean Corpuscular Hemoglobin 26.1 PG (27.0-31.0) L Mean Corpuscular Hemoglobin Concent 31.0 G/DL (32.0-36.0) L Red Cell Distribution Width 17.1 % (11.6-14.8) H Platelet Count 510 K/UL (150-450) H Mean Platelet Volume 5.4 FL (6.5-10.1) L Neutrophils (%) (Auto) 68.0 % (45.0-75.0) Lymphocytes (%) (Auto) 12.7 % (20.0-45.0) L Monocytes (%) (Auto) 7.3 % (1.0-10.0) Eosinophils (%) (Auto) 11.1 % (0.0-3.0) H Basophils (%) (Auto) 0.8 % (0.0-2.0) Sodium Level 137 MMOL/L (136-145) Potassium Level 3.4 MMOL/L (3.5-5.1) L Chloride Level 99 MMOL/L (98-107) Carbon Dioxide Level 27 MMOL/L (21-32) Anion Gap 11 mmol/L (5-15) Blood Urea Nitrogen 101 mg/dL (7-18) H Creatinine 2.2 MG/DL (0.55-1.30) H Estimat Glomerular Filtration Rate 35.4 mL/min (>60) Glucose Level 192 MG/DL (74-106) H Calcium Level 8.3 MG/DL (8.5-10.1) L Current Medications Medications (Trade) Dose Ordered Sig/Leonel Route PRN Reason Start Time Stop Time Status Last Admin Dose Admin Acetaminophen (Tylenol) 650 mg Q4H PRN NG Temp >100.5 06/10/19 21:00 07/10/19 20:59 06/19/19 15:42 Ascorbic Acid (Vitamin C) 500 mg DAILY GT 06/11/19 09:00 07/11/19 08:59 06/25/19 08:00 Atorvastatin Calcium (Lipitor) 40 mg BEDTIME GT 06/10/19 21:00 09/08/19 20:59 06/24/19 21:02 Cefepime HCl 1 gm/ Dextrose 55 ml @ 110 mls/hr Q24H IVPB 06/24/19 00:30 07/01/19 00:29 06/25/19 00:27 Dextrose (Dextrose 50%) 25 ml Q30M PRN IV Hypoglycemia 06/10/19 21:00 09/08/19 20:59 Dextrose (Dextrose 50%) 50 ml Q30M PRN IV Hypoglycemia 06/10/19 21:00 09/08/19 20:59 Epoetin Andreas (Epoetin Andreas-EPBX(NON ESRD)) 3,000 unit -WED SUBQ 06/19/19 21:00 09/17/19 20:59 06/23/19 20:20 Epoetin Andreas (Epoetin Andreas-EPBX(NON ESRD)) 4,000 unit -WED SUBQ 06/19/19 21:00 09/17/19 20:59 06/23/19 20:20 Ferrous Sulfate (Feosol) 300 mg EVERY 8 HOURS GT 06/18/19 22:00 09/09/19 08:59 06/25/19 05:14 Heparin Sodium (Porcine) (Heparin 5000 units/ml) 5,000 units EVERY 12 HOURS SUBQ 06/10/19 21:00 07/25/19 20:59 06/25/19 08:01 Insulin Aspart (NovoLOG) Q6HR SUBQ 06/11/19 12:00 09/08/19 21:59 06/25/19 11:28 Lansoprazole (Prevacid) 30 mg DAILY GT 06/20/19 09:00 07/20/19 08:59 06/25/19 08:00 Loperamide HCl (Imodium) 2 mg Q6H PRN NG Diarrhea 06/17/19 08:30 07/17/19 08:29 06/22/19 17:31 Metoprolol Tartrate (Lopressor) 100 mg Q12HR GT 06/10/19 09:00 09/08/19 08:59 06/25/19 08:00 Multivitamins (Multivitamins W/ Minerals 15ml Liquid) 15 ml DAILY GT 06/11/19 09:00 07/11/19 08:59 06/25/19 08:01 Sodium Chloride 1,000 ml @ 75 mls/hr [id number] IV 06/24/19 13:00 07/24/19 12:59 06/25/19 03:36 Vitamin B Complex/ Vit C/Folic Acid (Nephrovite) 1 tab DAILY GT 06/11/19 09:00 07/11/19 08:59 06/25/19 08:00 Real De Leon MD June 25, 2019 12:13
--- NOTE | 2019-06-25 12:53 | Surgery Progress Note ---
Surgery Progress Note Subjective Additional Comments labs reviewed exam stable dressings going well nutrition improving Objective Last 24 Hour Vital Signs Date Time Temp Pulse Resp B/P (MAP) Pulse Ox O2 Delivery O2 Flow Rate FiO2 06/25/19 11:50 97.7 67 16 143/61 (88) 100 06/25/19 11:26 67 06/25/19 11:16 68 20 30 06/25/19 09:11 64 16 30 06/25/19 08:00 Mechanical Ventilator 06/25/19 08:00 35 06/25/19 08:00 72 143/64 06/25/19 07:57 97.9 72 16 143/64 (90) 100 06/25/19 07:52 69 06/25/19 07:44 70 17 30 06/25/19 05:24 68 18 30 06/25/19 04:06 71 06/25/19 04:00 Mechanical Ventilator 06/25/19 04:00 35 06/25/19 04:00 98.4 72 16 132/52 (78) 100 06/25/19 04:00 35 06/25/19 04:00 Mechanical Ventilator 06/25/19 03:29 71 21 35 06/25/19 01:33 71 16 35 06/25/19 00:00 98.2 69 16 132/52 (78) 100 06/25/19 00:00 Mechanical Ventilator 06/24/19 23:45 70 06/24/19 23:29 69 17 35 06/24/19 21:06 70 17 35 06/24/19 21:03 68 133/54 06/24/19 20:00 Mechanical Ventilator 06/24/19 20:00 35 06/24/19 20:00 98.4 68 16 133/54 (80) 100 06/24/19 19:36 72 06/24/19 19:25 71 16 35 06/24/19 16:41 76 19 35 06/24/19 16:00 35 06/24/19 16:00 Mechanical Ventilator 06/24/19 16:00 98.1 77 16 138/52 (80) 100 06/24/19 16:00 65 06/24/19 15:43 63 16 35 06/24/19 13:36 67 I&O Intake and Output 06/24/19 06/25/19 19:00 07:00 Intake Total 1590 ml 1650 ml Output Total 650 ml 800 ml Balance 940 ml 850 ml Intake Free Water 300 ml 200 ml IV Total 750 ml 955 ml Tube Feeding 540 ml 495 ml Output Urine Total 650 ml 800 ml # Bowel Movements 3 2 Dressing: other Wound: other Cardiovascular: RSR Respiratory: decreased breath sounds Abdomen: soft, non-tender, present bowel sounds Extremities: no cyanosis Laboratory Tests Test 06/25/19 09:30 White Blood Count 15.6 K/UL (4.8-10.8) H Red Blood Count 3.49 M/UL (4.70-6.10) L Hemoglobin 9.1 G/DL (14.2-18.0) L Hematocrit 29.4 % (42.0-52.0) L Mean Corpuscular Volume 84 FL (80-99) Mean Corpuscular Hemoglobin 26.1 PG (27.0-31.0) L Mean Corpuscular Hemoglobin Concent 31.0 G/DL (32.0-36.0) L Red Cell Distribution Width 17.1 % (11.6-14.8) H Platelet Count 510 K/UL (150-450) H Mean Platelet Volume 5.4 FL (6.5-10.1) L Neutrophils (%) (Auto) 68.0 % (45.0-75.0) Lymphocytes (%) (Auto) 12.7 % (20.0-45.0) L Monocytes (%) (Auto) 7.3 % (1.0-10.0) Eosinophils (%) (Auto) 11.1 % (0.0-3.0) H Basophils (%) (Auto) 0.8 % (0.0-2.0) Sodium Level 137 MMOL/L (136-145) Potassium Level 3.4 MMOL/L (3.5-5.1) L Chloride Level 99 MMOL/L (98-107) Carbon Dioxide Level 27 MMOL/L (21-32) Anion Gap 11 mmol/L (5-15) Blood Urea Nitrogen 101 mg/dL (7-18) H Creatinine 2.2 MG/DL (0.55-1.30) H Estimat Glomerular Filtration Rate 35.4 mL/min (>60) Glucose Level 192 MG/DL (74-106) H Calcium Level 8.3 MG/DL (8.5-10.1) L Plan Problems: (1) Decubitus skin ulcer Assessment & Plan: Pt presented on admission with generalized edema,grossly enlarged scrotum, contractures and multiple pressure injuries. Full thickness stage 4 pressure injury L Sacrum (L)1.6cm x (W)1.8cm x (D)0.3cm. Base of wound has 40% slough,60% beefy red. Borders are macerated. Small amt sanguineus exudate noted. Wound noted to be within field of previous wound. Periwound, skin tone is darker without induration or fluctuance. Scattered areas of hyperpigmentation from previous wounds noted to R and L Buttocks. Grossly enlarged and erythematous scrotum . Clusters of linear partial thickness ulcers noted at base of scrotum.moderate amt of serous exudate noted .Shaft of penis is grossly edematous. DTPI noted to medial L heel. Base of wound is maroon and fluctuant. (L)4cm x (W) 4.5cm. R heel is boggy with non-blanching erythema. Tx.Plan: Cleanse Sacral wound with Saline. Apply TheraHoney.Apply Moisture Barrier Paste periwound. Cover with Optifoam drsg. Change every 3 days and prn. Apply Moisture Barrier Paste to Bilat groin and scrotum with each Incontinence care. Cover each trochanter/Hips areas with Optifoam drsgs. Change every 7 days and prn. Apply Cavilon Skin Barrier to both heels. Cover each heel with Optifoam drsg. Change every 7 days and prn. Reposition at least every 2hours or as tolerated. Off-load heels with Pillow. APM/BECCA Mattress overlay. (2) Malnutrition Assessment & Plan: DAILY ESTIMATED NEEDS: Needs based on Renal, critical care, wound/ 62kg 22-28 kcals/kg 1922-2256 total kcals 1-1.25 (increase w/ renal improvement) g protein/kg 62-78 g total protein 20-25 mL/kg 8852-2172 total fluid mLs NUTRITION DIAGNOSIS: * Swallowing difficulty R/T respiratory failure, dysphagia as evidenced by trach/vent dep, PEG dep * Increased kcal/prot needs R/T wound healing as evidenced by admitted w/ multiple pressure injuries including full thickness at L sacrum. CURRENT TF:Nepro @ 45ml/hr x 24 hrs ENTERAL NUTRITION RECOMMENDATIONS: LOWER NEPRO to 40ml/hr x 24 hrs to provide 960ml, 1728 kcal,m 78g pro, 698ml free H2O * Rec lower TF to goal of 40ml/hr x24 hrs to not exceed est kcal needs (BG elevated) * HOB over 30 degrees/ water flush per MD ADDITIONAL RECOMMENDATIONS: * Per SNF: HT=64" KA=238 lbs (Vs EMR wt of 150lbs) -> obtain re-calibrated bedscale wt * Monitor lytes and renal fxn, need to continue Nepro K critical, maintain Nepro; lower rate to 40ml/hr * BG elevated, continue bed side BG w/ niss * Wound healing: Vit C dose per nephro , add Garo BID via PEG (3) Chronic respiratory failure Assessment & Plan: FINDINGS: Hardware: Tracheostomy tube terminates in the region of the upper/mid thoracic trachea. Lungs/pleura: Bilateral pleural effusions. Opacities throughout right greater than left lungs, concerning for pulmonary edema and/or infectious/inflammatory process. Heart/mediastinum: Mild enlargement of the cardiac silhouette. Atherosclerotic calcifications of the aorta. Left-sided pacemaker. Soft tissues: Unremarkable. Bones: No acute fracture. Degenerative changes of the spine Upper abdomen: Normal. IMPRESSION: Bilateral pleural effusions. Opacities throughout right greater than left lungs, concerning for pulmonary edema and/or infectious/inflammatory process. Trach Care (4) Anasarca (5) Leukocytosis Assessment & Plan: Patient identified to have significant leukocytosis, anemia , abnormal labs. Albumin low. Renal insufficiency. Anasarca. Microbiology noted Sputum sample resulted Antibiotics per infectious disease Wound evaluated likely etiology of patient's infectious source Will monitor closely and provide assistance thank you for let me participate in patient's care wbc persistent and elevated Levaq for 3 more days Jonathan Urias June 25, 2019 12:53
--- NOTE | 2019-06-25 14:32 | Pulmonology Progress Note ---
Subjective ROS Limited/Unobtainable: Yes Constitutional: Denies: fever Gastrointestinal/Abdominal: Reports: diarrhea Allergies: Coded Allergies: No Known Allergies (Unverified , 06/10/19) Subjective reviewed care noted labs on vent Objective Last 24 Hour Vital Signs Date Time Temp Pulse Resp B/P (MAP) Pulse Ox O2 Delivery O2 Flow Rate FiO2 06/25/19 14:14 69 22 30 06/25/19 12:00 Mechanical Ventilator 06/25/19 12:00 35 06/25/19 11:50 97.7 67 16 143/61 (88) 100 06/25/19 11:26 67 06/25/19 11:16 68 20 30 06/25/19 09:11 64 16 30 06/25/19 08:00 Mechanical Ventilator 06/25/19 08:00 35 06/25/19 08:00 72 143/64 06/25/19 07:57 97.9 72 16 143/64 (90) 100 06/25/19 07:52 69 06/25/19 07:44 70 17 30 06/25/19 05:24 68 18 30 06/25/19 04:06 71 06/25/19 04:00 Mechanical Ventilator 06/25/19 04:00 35 06/25/19 04:00 98.4 72 16 132/52 (78) 100 06/25/19 04:00 35 06/25/19 04:00 Mechanical Ventilator 06/25/19 03:29 71 21 35 06/25/19 01:33 71 16 35 06/25/19 00:00 98.2 69 16 132/52 (78) 100 06/25/19 00:00 Mechanical Ventilator 06/24/19 23:45 70 06/24/19 23:29 69 17 35 06/24/19 21:06 70 17 35 06/24/19 21:03 68 133/54 06/24/19 20:00 Mechanical Ventilator 06/24/19 20:00 35 06/24/19 20:00 98.4 68 16 133/54 (80) 100 06/24/19 19:36 72 06/24/19 19:25 71 16 35 06/24/19 16:41 76 19 35 06/24/19 16:00 35 06/24/19 16:00 Mechanical Ventilator 06/24/19 16:00 98.1 77 16 138/52 (80) 100 06/24/19 16:00 65 06/24/19 15:43 63 16 35 Intake and Output 06/24/19 06/25/19 19:00 07:00 Intake Total 1590 ml 1650 ml Output Total 650 ml 800 ml Balance 940 ml 850 ml Intake Free Water 300 ml 200 ml IV Total 750 ml 955 ml Tube Feeding 540 ml 495 ml Output Urine Total 650 ml 800 ml # Bowel Movements 3 2 Objective WDWN NAD trach and gt clear breath sounds bilaterally without rhonchi or wheeze [id number] without MRG NABS nontender no HSM no CC noted edema better scrotal edema nonfocal reviewed and edited Laboratory Tests 06/25/19 09:30: White Blood Count 15.6H, Red Blood Count 3.49L, Hemoglobin 9.1L, Hematocrit 29.4L, Mean Corpuscular Volume 84, Mean Corpuscular Hemoglobin 26.1L, Mean Corpuscular Hemoglobin Concent 31.0L, Red Cell Distribution Width 17.1H, Platelet Count 510H, Mean Platelet Volume 5.4L, Neutrophils (%) (Auto) 68.0, Lymphocytes (%) (Auto) 12.7L, Monocytes (%) (Auto) 7.3, Eosinophils (%) (Auto) 11.1H, Basophils (%) (Auto) 0.8, Sodium Level 137, Potassium Level 3.4L, Chloride Level 99, Carbon Dioxide Level 27, Anion Gap 11, Blood Urea Nitrogen 101H, Creatinine 2.2H, Estimat Glomerular Filtration Rate 35.4, Glucose Level 192H, Calcium Level 8.3L Current Medications Medications (Trade) Dose Ordered Sig/Leonel Route PRN Reason Start Time Stop Time Status Last Admin Dose Admin Acetaminophen (Tylenol) 650 mg Q4H PRN NG Temp >100.5 06/10/19 21:00 07/10/19 20:59 06/19/19 15:42 Ascorbic Acid (Vitamin C) 500 mg DAILY GT 06/11/19 09:00 07/11/19 08:59 06/25/19 08:00 Atorvastatin Calcium (Lipitor) 40 mg BEDTIME GT 06/10/19 21:00 09/08/19 20:59 06/24/19 21:02 Cefepime HCl 1 gm/ Dextrose 55 ml @ 110 mls/hr Q24H IVPB 06/24/19 00:30 07/01/19 00:29 06/25/19 00:27 Dextrose (Dextrose 50%) 25 ml Q30M PRN IV Hypoglycemia 06/10/19 21:00 09/08/19 20:59 Dextrose (Dextrose 50%) 50 ml Q30M PRN IV Hypoglycemia 06/10/19 21:00 09/08/19 20:59 Epoetin Andreas (Epoetin Andreas-EPBX(NON ESRD)) 3,000 unit SUBQ 06/19/19 21:00 09/17/19 20:59 06/23/19 20:20 Epoetin Andreas (Epoetin Andreas-EPBX(NON ESRD)) 4,000 unit SUBQ 06/19/19 21:00 09/17/19 20:59 06/23/19 20:20 Ferrous Sulfate (Feosol) 300 mg EVERY 8 HOURS GT 06/18/19 22:00 09/09/19 08:59 06/25/19 13:36 Heparin Sodium (Porcine) (Heparin 5000 units/ml) 5,000 units EVERY 12 HOURS SUBQ 06/10/19 21:00 07/25/19 20:59 06/25/19 08:01 Insulin Aspart (NovoLOG) Q6HR SUBQ 06/11/19 12:00 09/08/19 21:59 06/25/19 11:28 Lansoprazole (Prevacid) 30 mg DAILY GT 06/20/19 09:00 07/20/19 08:59 06/25/19 08:00 Loperamide HCl (Imodium) 2 mg Q6H PRN NG Diarrhea 06/17/19 08:30 07/17/19 08:29 06/22/19 17:31 Metoprolol Tartrate (Lopressor) 100 mg Q12HR GT 06/10/19 09:00 09/08/19 08:59 06/25/19 08:00 Multivitamins (Multivitamins W/ Minerals 15ml Liquid) 15 ml DAILY GT 06/11/19 09:00 07/11/19 08:59 06/25/19 08:01 Sodium Chloride 1,000 ml @ 75 mls/hr [id number] IV 06/24/19 13:00 6/15/20 12:59 06/25/19 03:36 Vitamin B Complex/ Vit C/Folic Acid (Nephrovite) 1 tab DAILY GT 06/11/19 09:00 07/11/19 08:59 06/25/19 08:00 Assessment/Plan Assessment/Plan Anasarca Pulmonary edema scrotal edema Uremia Chronic respiratory failure on Ventilator Hypertension Diabetes Previous pneumonia Subdural hematoma Bedbound Tracheostomy dependent leukocytosis possible sepsis severe PCM anemia diarrhea negative Cdif PLAN vent ongoing renal and ID noted antibiotics reviewed cultures noted monitor urine output and labs feeds as tolerated protein and supplement dc planning if ok with ID impression, plan, and exam edited and reviewed in detail care discussed with Kain Tovar MD June 25, 2019 14:32
[2019-06-25] MEDS ORDERED: 1/2 NS 1000ml IV ONE (15:55)
[2019-06-25 16:00] VITALS: BP 147/69
--- NOTE | 2019-06-25 18:05 | Nephrology Progress Note ---
Assessment/Plan Problem List: (1) Hypokalemia (2) CKD (chronic kidney disease) stage 5, GFR less than 15 ml/min (3) Anasarca (4) Pulmonary edema (5) Chronic respiratory failure (6) Uremia (7) Hyperkalemia (8) Malnutrition (9) Leukocytosis Plan c, , kcl gfr 7, avoid nephrotoxins, has had good diuresis, fever, on broad spectrum atb, bun higher dc lasix for now, high K treated, now low K replace, hydrate,reduced iv rate leukocytosis ID reassessing Subjective ROS Limited/Unobtainable: Yes Objective Objective Last 24 Hour Vital Signs Date Time Temp Pulse Resp B/P (MAP) Pulse Ox O2 Delivery O2 Flow Rate FiO2 06/25/19 16:00 86 06/25/19 16:00 98.1 67 16 147/69 (95) 100 06/25/19 16:00 35 06/25/19 16:00 Mechanical Ventilator 06/25/19 15:46 86 20 30 06/25/19 14:14 69 22 30 06/25/19 12:00 Mechanical Ventilator 06/25/19 12:00 35 06/25/19 11:50 97.7 67 16 143/61 (88) 100 06/25/19 11:26 67 06/25/19 11:16 68 20 30 06/25/19 09:11 64 16 30 06/25/19 08:00 Mechanical Ventilator 06/25/19 08:00 35 06/25/19 08:00 72 143/64 06/25/19 07:57 97.9 72 16 143/64 (90) 100 06/25/19 07:52 69 06/25/19 07:44 70 17 30 06/25/19 05:24 68 18 30 06/25/19 04:06 71 06/25/19 04:00 Mechanical Ventilator 06/25/19 04:00 35 06/25/19 04:00 98.4 72 16 132/52 (78) 100 06/25/19 04:00 35 06/25/19 04:00 Mechanical Ventilator 06/25/19 03:29 71 21 35 06/25/19 01:33 71 16 35 06/25/19 00:00 98.2 69 16 132/52 (78) 100 06/25/19 00:00 Mechanical Ventilator 06/24/19 23:45 70 06/24/19 23:29 69 17 35 06/24/19 21:06 70 17 35 06/24/19 21:03 68 133/54 06/24/19 20:00 Mechanical Ventilator 06/24/19 20:00 35 06/24/19 20:00 98.4 68 16 133/54 (80) 100 06/24/19 19:36 72 06/24/19 19:25 71 16 35 Intake and Output 06/24/19 06/25/19 19:00 07:00 Intake Total 1590 ml 1650 ml Output Total 650 ml 800 ml Balance 940 ml 850 ml Intake Free Water 300 ml 200 ml IV Total 750 ml 955 ml Tube Feeding 540 ml 495 ml Output Urine Total 650 ml 800 ml # Bowel Movements 3 2 Laboratory Tests 06/25/19 09:30: White Blood Count 15.6H, Red Blood Count 3.49L, Hemoglobin 9.1L, Hematocrit 29.4L, Mean Corpuscular Volume 84, Mean Corpuscular Hemoglobin 26.1L, Mean Corpuscular Hemoglobin Concent 31.0L, Red Cell Distribution Width 17.1H, Platelet Count 510H, Mean Platelet Volume 5.4L, Neutrophils (%) (Auto) 68.0, Lymphocytes (%) (Auto) 12.7L, Monocytes (%) (Auto) 7.3, Eosinophils (%) (Auto) 11.1H, Basophils (%) (Auto) 0.8, Sodium Level 137, Potassium Level 3.4L, Chloride Level 99, Carbon Dioxide Level 27, Anion Gap 11, Blood Urea Nitrogen 101H, Creatinine 2.2H, Estimat Glomerular Filtration Rate 35.4, Glucose Level 192H, Calcium Level 8.3L Height (Feet): 5 Height (Inches): 4.00 Weight (Pounds): 150 General Appearance: lethargic, other - on vent Cardiovascular: regular rhythm Respiratory/Chest: rhonchi - bilaterally Abdomen: soft Extremities: no edema Neurologic: unresponsive Carmelo Frank MD June 25, 2019 18:05
--- NOTE | 2019-06-25 19:01 | NUR ---
HAND-OFF: Report given to lisa wright.
--- NOTE | 2019-06-25 19:02 | NUR ---
NURSE NOTES: received pt from May DAVEY,.pt is obtunded and opens eyes and tracks people. trach is in place, no SOB noted. Gtube site intact, clean , and patent. IV site left FA 22 G and right FA 22G intact, clean, and patent. Avalos cath is draining well with gravity. call light within reach. bed at the lowest position, alarmed, and locked. will continue to monitor pt with plan of care.
[2019-06-25 20:00] VITALS: BP 154/77
[2019-06-25] MEDS: Atorvastatin 20mg tab GT SCH (21:05)
[2019-06-26] VITALS: BP 150/70
--- NOTE | 2019-06-26 02:02 | NUR ---
NURSE NOTES: cleaned pt, provided new gown, new blanket. no SOB noted. O2sat is at 100%. pt is sleeping without respiratory distress. oral care given, repositioned Q2hrs
[2019-06-26 04:00] VITALS: BP 153/77
[2019-06-26] MEDS: Ferrous Sulfate 300 MG/5 ML UDC GT SCH ×2 (05:14→14:20)
[2019-06-26] MEDS: NovoLOG Insulin Flexpen SUBQ SCH ×2 (05:15→11:30)
[2019-06-26 05:58] LABS: ANION GAP 12 mmol/L (5-15); BLOOD UREA NITROGEN 100 mg/dL (7-18); CALCIUM 8.5 MG/DL (8.5-10.1); CARBON DIOXIDE 24 MMOL/L (21-32); CHLORIDE 100 MMOL/L (98-107); CREATININE 2.1 MG/DL (0.55-1.30); POTASSIUM 3.4 MMOL/L (3.5-5.1); SODIUM 136 MMOL/L (136-145)
[2019-06-26 06:03] LABS: BASOPHILS % (AUTO) 1.2 % (0.0-2.0); EOSINOPHILS % (AUTO) 13.4 % (0.0-3.0); HEMATOCRIT 29.5 % (42.0-52.0); HEMOGLOBIN 9.3 G/DL (14.2-18.0); LYMPHOCYTES % (AUTO) 13.6 % (20.0-45.0); MEAN CORPUSCULAR VOLUME 84 FL (80-99); MONOCYTES % (AUTO) 7.7 % (1.0-10.0); PLATELET COUNT 526 K/UL (150-450); RED BLOOD COUNT 3.51 M/UL (4.70-6.10); RED CELL DISTRIBUTION WIDTH 17.1 % (11.6-14.8); WHITE BLOOD COUNT 13.1 K/UL (4.8-10.8)
--- NOTE | 2019-06-26 07:00 | NUR ---
NURSE NOTES: received patient report from vick wright. patient is on bed asleep. not in acute distress. on vent at prescribed rate. on gtube feeding running. no acute events last night. bed is low and locked for safety. will follow plan of care.
[2019-06-26 08:00] VITALS: BP 155/65
[2019-06-26] MEDS: Multivitamins W/Minerals 15 ML UDC GT SCH (08:03)
[2019-06-26] MEDS: Ascorbic Acid 500mg tab GT SCH (08:03)
[2019-06-26] MEDS: Nephrovite tab (Rena-Vite) GT SCH (08:03)
[2019-06-26] MEDS: Metoprolol Tartrate 100mg tab GT SCH (08:03)
[2019-06-26] MEDS: Heparin 5000 units/ml inj SUBQ SCH (08:04)
--- NOTE | 2019-06-26 10:06 | Pulmonology Progress Note ---
Subjective ROS Limited/Unobtainable: Yes Constitutional: Denies: fever Gastrointestinal/Abdominal: Reports: diarrhea Allergies: Coded Allergies: No Known Allergies (Unverified , 06/10/19) Subjective reviewed care noted labs on vent Iv adjusted Objective Last 24 Hour Vital Signs Date Time Temp Pulse Resp B/P (MAP) Pulse Ox O2 Delivery O2 Flow Rate FiO2 06/26/19 08:57 64 19 30 06/26/19 08:03 68 155/65 06/26/19 08:00 35 06/26/19 08:00 Mechanical Ventilator 06/26/19 08:00 67 06/26/19 08:00 97.0 68 16 155/65 (95) 100 06/26/19 07:06 65 19 30 06/26/19 04:46 64 16 30 06/26/19 04:00 Mechanical Ventilator 06/26/19 04:00 35 06/26/19 04:00 98.0 62 16 153/77 (102) 100 06/26/19 03:22 62 06/26/19 03:20 68 16 30 06/26/19 00:44 63 18 30 06/26/19 00:00 35 06/26/19 00:00 Mechanical Ventilator 06/26/19 00:00 98.5 68 16 150/70 (96) 100 06/25/19 23:56 67 06/25/19 23:25 64 16 100 Mechanical Ventilator 35 06/25/19 23:24 64 16 30 06/25/19 21:36 62 16 30 06/25/19 21:12 73 154/77 06/25/19 20:00 98.0 69 16 154/77 (102) 100 06/25/19 20:00 68 06/25/19 20:00 Mechanical Ventilator 06/25/19 20:00 35 06/25/19 19:51 68 16 30 06/25/19 16:00 86 06/25/19 16:00 98.1 67 16 147/69 (95) 100 06/25/19 16:00 35 06/25/19 16:00 Mechanical Ventilator 06/25/19 15:46 86 20 30 06/25/19 14:14 69 22 30 06/25/19 12:00 Mechanical Ventilator 06/25/19 12:00 35 06/25/19 11:50 97.7 67 16 143/61 (88) 100 06/25/19 11:26 67 06/25/19 11:16 68 20 30 Intake and Output 06/25/19 06/26/19 19:00 07:00 Intake Total 1240 ml 1052.5 ml Output Total 750 ml 750 ml Balance 490 ml 302.5 ml Intake Free Water 130 ml 170 ml IV Total 525 ml 342.5 ml Tube Feeding 585 ml 540 ml Output Urine Total 750 ml 750 ml # Bowel Movements 1 1 Objective WDWN NAD trach and gt clear breath sounds bilaterally without rhonchi or wheeze [id number] without MRG NABS nontender no HSM no CC noted edema better scrotal edema nonfocal reviewed and edited Laboratory Tests 06/26/19 04:30: White Blood Count 13.1H, Red Blood Count 3.51L, Hemoglobin 9.3L, Hematocrit 29.5L, Mean Corpuscular Volume 84, Mean Corpuscular Hemoglobin 26.4L, Mean Corpuscular Hemoglobin Concent 31.3L, Red Cell Distribution Width 17.1H, Platelet Count 526H, Mean Platelet Volume 5.8L, Neutrophils (%) (Auto) 64.0, Lymphocytes (%) (Auto) 13.6L, Monocytes (%) (Auto) 7.7, Eosinophils (%) (Auto) 13.4H, Basophils (%) (Auto) 1.2, Sodium Level 136, Potassium Level 3.4L, Chloride Level 100, Carbon Dioxide Level 24, Anion Gap 12, Blood Urea Nitrogen 100H, Creatinine 2.1H, Estimat Glomerular Filtration Rate 37.3, Glucose Level 186H, Calcium Level 8.5 Current Medications Medications (Trade) Dose Ordered Sig/Leonel Route PRN Reason Start Time Stop Time Status Last Admin Dose Admin Acetaminophen (Tylenol) 650 mg Q4H PRN NG Temp >100.5 06/10/19 21:00 07/10/19 20:59 06/19/19 15:42 Ascorbic Acid (Vitamin C) 500 mg DAILY GT 06/11/19 09:00 07/11/19 08:59 06/26/19 08:03 Atorvastatin Calcium (Lipitor) 40 mg BEDTIME GT 06/10/19 21:00 09/08/19 20:59 06/25/19 21:05 Cefepime HCl 1 gm/ Dextrose 55 ml @ 110 mls/hr Q24H IVPB 06/24/19 00:30 07/01/19 00:29 06/25/19 23:56 Dextrose (Dextrose 50%) 25 ml Q30M PRN IV Hypoglycemia 06/10/19 21:00 09/08/19 20:59 Dextrose (Dextrose 50%) 50 ml Q30M PRN IV Hypoglycemia 06/10/19 21:00 09/08/19 20:59 Epoetin Andreas (Epoetin Andreas-EPBX(NON ESRD)) 3,000 unit WED-WED-WED SUBQ 06/19/19 21:00 09/17/19 20:59 06/23/19 20:20 Epoetin Andreas (Epoetin Andreas-EPBX(NON ESRD)) 4,000 unit WED- SUBQ 06/19/19 21:00 09/17/19 20:59 06/23/19 20:20 Ferrous Sulfate (Feosol) 300 mg EVERY 8 HOURS GT 06/18/19 22:00 09/09/19 08:59 06/26/19 05:14 Heparin Sodium (Porcine) (Heparin 5000 units/ml) 5,000 units EVERY 12 HOURS SUBQ 06/10/19 21:00 07/25/19 20:59 06/26/19 08:04 Insulin Aspart (NovoLOG) Q6HR SUBQ 06/11/19 12:00 09/08/19 21:59 06/26/19 05:15 Lansoprazole (Prevacid) 30 mg DAILY GT 06/20/19 09:00 07/20/19 08:59 06/26/19 08:03 Loperamide HCl (Imodium) 2 mg Q6H PRN NG Diarrhea 06/17/19 08:30 07/17/19 08:29 06/22/19 17:31 Metoprolol Tartrate (Lopressor) 100 mg Q12HR GT 06/10/19 09:00 09/08/19 08:59 06/26/19 08:03 Multivitamins (Multivitamins W/ Minerals 15ml Liquid) 15 ml DAILY GT 06/11/19 09:00 07/11/19 08:59 06/26/19 08:03 Potassium Chloride (K-Dur) 20 meq ONCE GT 06/26/19 11:00 06/26/19 12:00 Sodium Chloride 1,000 ml @ 25 mls/hr Q24H IV 06/25/19 19:00 07/25/19 18:59 06/25/19 18:30 Vitamin B Complex/ Vit C/Folic Acid (Nephrovite) 1 tab DAILY GT 06/11/19 09:00 07/11/19 08:59 06/26/19 08:03 Assessment/Plan Assessment/Plan Anasarca Pulmonary edema scrotal edema Uremia Chronic respiratory failure on Ventilator Hypertension Diabetes Previous pneumonia Subdural hematoma Bedbound Tracheostomy dependent leukocytosis possible sepsis severe PCM anemia diarrhea negative Cdif PLAN vent ongoing renal and ID noted antibiotics reviewed cultures noted monitor urine output and labs feeds as tolerated protein and supplement dc planning if ok with ID impression, plan, and exam edited and reviewed in detail care discussed with Kain Tovar MD June 26, 2019 10:06
--- NOTE | 2019-06-26 11:07 | Infectious Diseases Prog Note ---
Assessment/Plan Assessment/Plan antibiotics : cefepime A 1. pneumonia with pseudomonas COVID 19 test negative 5,3,20, 5.12.20 2. respiratory failure 3. leucocytosis improving 4. diabetes mellitus 5. hypertension 6. renal failure improving 7. SDH 8. + blood cultures with coag neg staph likely contaminated 9. QT prolongation P 1. continue cefepime 3 more days 2. will follow up cultures Subjective ROS Limited/Unobtainable: Yes Allergies: Coded Allergies: No Known Allergies (Unverified , 06/10/19) Objective Vital Signs Last 24 Hour Vital Signs Date Time Temp Pulse Resp B/P (MAP) Pulse Ox O2 Delivery O2 Flow Rate FiO2 06/26/19 08:57 64 19 30 06/26/19 08:03 68 155/65 06/26/19 08:00 35 06/26/19 08:00 Mechanical Ventilator 06/26/19 08:00 67 06/26/19 08:00 97.0 68 16 155/65 (95) 100 06/26/19 07:06 65 19 30 06/26/19 04:46 64 16 30 06/26/19 04:00 Mechanical Ventilator 06/26/19 04:00 35 06/26/19 04:00 98.0 62 16 153/77 (102) 100 06/26/19 03:22 62 06/26/19 03:20 68 16 30 06/26/19 00:44 63 18 30 06/26/19 00:00 35 06/26/19 00:00 Mechanical Ventilator 06/26/19 00:00 98.5 68 16 150/70 (96) 100 06/25/19 23:56 67 06/25/19 23:25 64 16 100 Mechanical Ventilator 35 06/25/19 23:24 64 16 30 06/25/19 21:36 62 16 30 06/25/19 21:12 73 154/77 06/25/19 20:00 98.0 69 16 154/77 (102) 100 06/25/19 20:00 68 06/25/19 20:00 Mechanical Ventilator 06/25/19 20:00 35 06/25/19 19:51 68 16 30 06/25/19 16:00 86 06/25/19 16:00 98.1 67 16 147/69 (95) 100 06/25/19 16:00 35 06/25/19 16:00 Mechanical Ventilator 06/25/19 15:46 86 20 30 06/25/19 14:14 69 22 30 06/25/19 12:00 Mechanical Ventilator 06/25/19 12:00 35 06/25/19 11:50 97.7 67 16 143/61 (88) 100 06/25/19 11:26 67 06/25/19 11:16 68 20 30 Height (Feet): 5 Height (Inches): 4.00 Weight (Pounds): 150 HEENT: status post trach Respiratory/Chest: lungs clear Cardiovascular: normal rate, regular rhythm, no gallop/murmur Abdomen: soft, non tender, other - GT Extremities: no edema Laboratory Tests Test 06/26/19 04:30 White Blood Count 13.1 K/UL (4.8-10.8) H Red Blood Count 3.51 M/UL (4.70-6.10) L Hemoglobin 9.3 G/DL (14.2-18.0) L Hematocrit 29.5 % (42.0-52.0) L Mean Corpuscular Volume 84 FL (80-99) Mean Corpuscular Hemoglobin 26.4 PG (27.0-31.0) L Mean Corpuscular Hemoglobin Concent 31.3 G/DL (32.0-36.0) L Red Cell Distribution Width 17.1 % (11.6-14.8) H Platelet Count 526 K/UL (150-450) H Mean Platelet Volume 5.8 FL (6.5-10.1) L Neutrophils (%) (Auto) 64.0 % (45.0-75.0) Lymphocytes (%) (Auto) 13.6 % (20.0-45.0) L Monocytes (%) (Auto) 7.7 % (1.0-10.0) Eosinophils (%) (Auto) 13.4 % (0.0-3.0) H Basophils (%) (Auto) 1.2 % (0.0-2.0) Sodium Level 136 MMOL/L (136-145) Potassium Level 3.4 MMOL/L (3.5-5.1) L Chloride Level 100 MMOL/L (98-107) Carbon Dioxide Level 24 MMOL/L (21-32) Anion Gap 12 mmol/L (5-15) Blood Urea Nitrogen 100 mg/dL (7-18) H Creatinine 2.1 MG/DL (0.55-1.30) H Estimat Glomerular Filtration Rate 37.3 mL/min (>60) Glucose Level 186 MG/DL (74-106) H Calcium Level 8.5 MG/DL (8.5-10.1) Current Medications Medications (Trade) Dose Ordered Sig/Leonel Route PRN Reason Start Time Stop Time Status Last Admin Dose Admin Acetaminophen (Tylenol) 650 mg Q4H PRN NG Temp >100.5 06/10/19 21:00 07/10/19 20:59 06/19/19 15:42 Ascorbic Acid (Vitamin C) 500 mg DAILY GT 06/11/19 09:00 07/11/19 08:59 06/26/19 08:03 Atorvastatin Calcium (Lipitor) 40 mg BEDTIME GT 06/10/19 21:00 09/08/19 20:59 06/25/19 21:05 Cefepime HCl 1 gm/ Dextrose 55 ml @ 110 mls/hr Q24H IVPB 06/24/19 00:30 07/01/19 00:29 06/25/19 23:56 Dextrose (Dextrose 50%) 25 ml Q30M PRN IV Hypoglycemia 06/10/19 21:00 09/08/19 20:59 Dextrose (Dextrose 50%) 50 ml Q30M PRN IV Hypoglycemia 06/10/19 21:00 09/08/19 20:59 Epoetin Andreas (Epoetin Andreas-EPBX(NON ESRD)) 3,000 unit -WED SUBQ 06/19/19 21:00 09/17/19 20:59 06/23/19 20:20 Epoetin Andreas (Epoetin Andreas-EPBX(NON ESRD)) 4,000 unit -WED SUBQ 06/19/19 21:00 09/17/19 20:59 06/23/19 20:20 Ferrous Sulfate (Feosol) 300 mg EVERY 8 HOURS GT 06/18/19 22:00 09/09/19 08:59 06/26/19 05:14 Heparin Sodium (Porcine) (Heparin 5000 units/ml) 5,000 units EVERY 12 HOURS SUBQ 06/10/19 21:00 07/25/19 20:59 06/26/19 08:04 Insulin Aspart (NovoLOG) Q6HR SUBQ 06/11/19 12:00 09/08/19 21:59 06/26/19 05:15 Lansoprazole (Prevacid) 30 mg DAILY GT 06/20/19 09:00 07/20/19 08:59 06/26/19 08:03 Loperamide HCl (Imodium) 2 mg Q6H PRN NG Diarrhea 06/17/19 08:30 07/17/19 08:29 06/22/19 17:31 Metoprolol Tartrate (Lopressor) 100 mg Q12HR GT 06/10/19 09:00 09/08/19 08:59 06/26/19 08:03 Multivitamins (Multivitamins W/ Minerals 15ml Liquid) 15 ml DAILY GT 06/11/19 09:00 07/11/19 08:59 06/26/19 08:03 Potassium Chloride (K-Dur) 20 meq ONCE GT 06/26/19 11:00 06/26/19 12:00 Sodium Chloride 1,000 ml @ 25 mls/hr Q24H IV 06/25/19 19:00 07/25/19 18:59 06/25/19 18:30 Vitamin B Complex/ Vit C/Folic Acid (Nephrovite) 1 tab DAILY GT 06/11/19 09:00 07/11/19 08:59 06/26/19 08:03 Farnaz Lyle MD June 26, 2019 11:07
[2019-06-26 12:00] VITALS: BP 157/71
--- NOTE | 2019-06-26 12:56 | NUR ---
NURSE NOTES: spoke with sonia pillowcase cleaner regarding patients discharge, per sonia pillowcase cleaner is aware and working on it.
--- NOTE | 2019-06-26 13:06 | NUR ---
*-* DISCHARGE PLANNING *-* PATIENT HAS BEEN REFERRED BACK TO: [facility] P: [phone] F: [phone] EFAX: [phone]
--- NOTE | 2019-06-26 13:07 | NUR ---
INSURANCE UPDATED CLINICALS HAVE BEEN FAXED TO: [facility] tracking# [id number] Omero Jiménez ph# [phone] ext [phone] fax# [phone]
--- NOTE | 2019-06-26 14:25 | NUR ---
CASE MANAGEMENT: DCP UPON DISCHARGE PATIENT WILL TRANSFER BACK TO [facility]# [id number] PATIENT IS [facility] [phone] / LEFT MESSAGE TRANSPORTATION VIA [facility] [phone] GRIND OPERATOR TIME 16:30 Addendum: 06/26/19 at 1434 by BEAU REGALADO CM [facility] [phone] CALLED AND AGREEABLE WITH PATIENT RETURNING TO THIS FACILITY Addendum: 06/26/19 at 1656 by BEAU REGALADO CM PATIENT WILL RETURN SKILLED DUE TO IV Cefepime 1g X 3 more days
--- NOTE | 2019-06-26 14:58 | NUR ---
NURSE NOTES: patient is going back to [facility]. report was given to Mariann of [facility]. packet was printed. to continue IV Cefepime 1g X 3 more days. no belongings found. family member monica was aware of the discharge. awaitng picker and packer time @ [phone].
[2019-06-26 16:00] VITALS: BP 154/71
--- NOTE | 2019-06-26 18:18 | NUR ---
NURSE NOTES: patient was discharge back to [facility], patient was picked up ambulance personnel. packet was endorsed appropriately. offset duplicating machine operator removed. patient was stable, not in acute distress.
--- NOTE | 2019-06-26 18:38 | Surgery Progress Note ---
Surgery Progress Note Subjective Additional Comments late entry patient seen and examined this AM improved d/c plan for today okay to d/c cont below care instructions upon d/c thank you Objective Last 24 Hour Vital Signs Date Time Temp Pulse Resp B/P (MAP) Pulse Ox O2 Delivery O2 Flow Rate FiO2 06/26/19 17:06 67 18 30 06/26/19 16:00 35 06/26/19 16:00 97.7 68 16 154/71 (98) 100 06/26/19 16:00 69 06/26/19 16:00 Mechanical Ventilator 06/26/19 15:30 69 19 30 06/26/19 12:31 68 18 30 06/26/19 12:00 35 06/26/19 12:00 97.7 69 16 157/71 (99) 100 06/26/19 12:00 Mechanical Ventilator 06/26/19 11:47 66 06/26/19 11:16 66 19 30 06/26/19 08:57 64 19 30 06/26/19 08:03 68 155/65 06/26/19 08:00 35 06/26/19 08:00 Mechanical Ventilator 06/26/19 08:00 67 06/26/19 08:00 97.0 68 16 155/65 (95) 100 06/26/19 07:06 65 19 30 06/26/19 04:46 64 16 30 06/26/19 04:00 Mechanical Ventilator 06/26/19 04:00 35 06/26/19 04:00 98.0 62 16 153/77 (102) 100 06/26/19 03:22 62 06/26/19 03:20 68 16 30 06/26/19 00:44 63 18 30 06/26/19 00:00 35 06/26/19 00:00 Mechanical Ventilator 06/26/19 00:00 98.5 68 16 150/70 (96) 100 06/25/19 23:56 67 06/25/19 23:25 64 16 100 Mechanical Ventilator 35 06/25/19 23:24 64 16 30 06/25/19 21:36 62 16 30 06/25/19 21:12 73 154/77 06/25/19 20:00 98.0 69 16 154/77 (102) 100 06/25/19 20:00 68 06/25/19 20:00 Mechanical Ventilator 06/25/19 20:00 35 06/25/19 19:51 68 16 30 I&O Intake and Output 06/25/19 06/26/19 19:00 07:00 Intake Total 1240 ml 1052.5 ml Output Total 750 ml 750 ml Balance 490 ml 302.5 ml Intake Free Water 130 ml 170 ml IV Total 525 ml 342.5 ml Tube Feeding 585 ml 540 ml Output Urine Total 750 ml 750 ml # Bowel Movements 1 1 Laboratory Tests Test 06/26/19 04:30 White Blood Count 13.1 K/UL (4.8-10.8) H Red Blood Count 3.51 M/UL (4.70-6.10) L Hemoglobin 9.3 G/DL (14.2-18.0) L Hematocrit 29.5 % (42.0-52.0) L Mean Corpuscular Volume 84 FL (80-99) Mean Corpuscular Hemoglobin 26.4 PG (27.0-31.0) L Mean Corpuscular Hemoglobin Concent 31.3 G/DL (32.0-36.0) L Red Cell Distribution Width 17.1 % (11.6-14.8) H Platelet Count 526 K/UL (150-450) H Mean Platelet Volume 5.8 FL (6.5-10.1) L Neutrophils (%) (Auto) 64.0 % (45.0-75.0) Lymphocytes (%) (Auto) 13.6 % (20.0-45.0) L Monocytes (%) (Auto) 7.7 % (1.0-10.0) Eosinophils (%) (Auto) 13.4 % (0.0-3.0) H Basophils (%) (Auto) 1.2 % (0.0-2.0) Sodium Level 136 MMOL/L (136-145) Potassium Level 3.4 MMOL/L (3.5-5.1) L Chloride Level 100 MMOL/L (98-107) Carbon Dioxide Level 24 MMOL/L (21-32) Anion Gap 12 mmol/L (5-15) Blood Urea Nitrogen 100 mg/dL (7-18) H Creatinine 2.1 MG/DL (0.55-1.30) H Estimat Glomerular Filtration Rate 37.3 mL/min (>60) Glucose Level 186 MG/DL (74-106) H Calcium Level 8.5 MG/DL (8.5-10.1) Plan Problems: (1) Decubitus skin ulcer Assessment & Plan: Pt presented on admission with generalized edema,grossly enlarged scrotum, contractures and multiple pressure injuries. Full thickness stage 4 pressure injury L Sacrum (L)1.6cm x (W)1.8cm x (D)0.3cm. Base of wound has 40% slough,60% beefy red. Borders are macerated. Small amt sanguineus exudate noted. Wound noted to be within field of previous wound. Periwound, skin tone is darker without induration or fluctuance. Scattered areas of hyperpigmentation from previous wounds noted to R and L Buttocks. Grossly enlarged and erythematous scrotum . Clusters of linear partial thickness ulcers noted at base of scrotum.moderate amt of serous exudate noted .Shaft of penis is grossly edematous. DTPI noted to medial L heel. Base of wound is maroon and fluctuant. (L)4cm x (W) 4.5cm. R heel is boggy with non-blanching erythema. Tx.Plan: Cleanse Sacral wound with Saline. Apply TheraHoney.Apply Moisture Barrier Paste periwound. Cover with Optifoam drsg. Change every 3 days and prn. Apply Moisture Barrier Paste to Bilat groin and scrotum with each Incontinence care. Cover each trochanter/Hips areas with Optifoam drsgs. Change every 7 days and prn. Apply Cavilon Skin Barrier to both heels. Cover each heel with Optifoam drsg. Change every 7 days and prn. Reposition at least every 2hours or as tolerated. Off-load heels with Pillow. APM/BECCA Mattress overlay. (2) Malnutrition Assessment & Plan: DAILY ESTIMATED NEEDS: Needs based on Renal, critical care, wound/ 62kg 22-28 kcals/kg 0544-5539 total kcals 1-1.25 (increase w/ renal improvement) g protein/kg 62-78 g total protein 20-25 mL/kg 6397-0692 total fluid mLs NUTRITION DIAGNOSIS: * Swallowing difficulty R/T respiratory failure, dysphagia as evidenced by trach/vent dep, PEG dep * Increased kcal/prot needs R/T wound healing as evidenced by admitted w/ multiple pressure injuries including full thickness at L sacrum. CURRENT TF:Nepro @ 45ml/hr x 24 hrs ENTERAL NUTRITION RECOMMENDATIONS: LOWER NEPRO to 40ml/hr x 24 hrs to provide 960ml, 1728 kcal,m 78g pro, 698ml free H2O * Rec lower TF to goal of 40ml/hr x24 hrs to not exceed est kcal needs (BG elevated) * HOB over 30 degrees/ water flush per MD ADDITIONAL RECOMMENDATIONS: * Per SNF: HT=64" XF=836 lbs (Vs EMR wt of 150lbs) -> obtain re-calibrated bedscale wt * Monitor lytes and renal fxn, need to continue Nepro K critical, maintain Nepro; lower rate to 40ml/hr * BG elevated, continue bed side BG w/ niss * Wound healing: Vit C dose per nephro , add Garo BID via PEG (3) Chronic respiratory failure Assessment & Plan: FINDINGS: Hardware: Tracheostomy tube terminates in the region of the upper/mid thoracic trachea. Lungs/pleura: Bilateral pleural effusions. Opacities throughout right greater than left lungs, concerning for pulmonary edema and/or infectious/inflammatory process. Heart/mediastinum: Mild enlargement of the cardiac silhouette. Atherosclerotic calcifications of the aorta. Left-sided pacemaker. Soft tissues: Unremarkable. Bones: No acute fracture. Degenerative changes of the spine Upper abdomen: Normal. IMPRESSION: Bilateral pleural effusions. Opacities throughout right greater than left lungs, concerning for pulmonary edema and/or infectious/inflammatory process. Trach Care (4) Anasarca (5) Leukocytosis Assessment & Plan: Patient identified to have significant leukocytosis, anemia , abnormal labs. Albumin low. Renal insufficiency. Anasarca. Microbiology noted Sputum sample resulted Antibiotics per infectious disease Wound evaluated likely etiology of patient's infectious source Will monitor closely and provide assistance thank you for let me participate in patient's care wbc persistent and elevated Levaq for 3 more days Jonathan Urias June 26, 2019 18:38
--- NOTE | 2019-06-26 19:27 | Nephrology Progress Note ---
Assessment/Plan Problem List: (1) Hypokalemia (2) CKD (chronic kidney disease) stage 5, GFR less than 15 ml/min (3) Anasarca (4) Pulmonary edema (5) Chronic respiratory failure (6) Uremia (7) Hyperkalemia (8) Malnutrition (9) Leukocytosis Plan c, , kcl gfr 7, avoid nephrotoxins, has had good diuresis, fever, on broad spectrum atb, bun higher dc lasix for now, high K treated, now low K replace, hydrate,reduced iv rate leukocytosis ID reassessing renal func baselilne, will need to restart diuretic in near future Subjective ROS Limited/Unobtainable: Yes Objective Objective Last 24 Hour Vital Signs Date Time Temp Pulse Resp B/P (MAP) Pulse Ox O2 Delivery O2 Flow Rate FiO2 06/26/19 17:06 67 18 30 06/26/19 16:00 35 06/26/19 16:00 97.7 68 16 154/71 (98) 100 06/26/19 16:00 69 06/26/19 16:00 Mechanical Ventilator 06/26/19 15:30 69 19 30 06/26/19 12:31 68 18 30 06/26/19 12:00 35 06/26/19 12:00 97.7 69 16 157/71 (99) 100 06/26/19 12:00 Mechanical Ventilator 06/26/19 11:47 66 06/26/19 11:16 66 19 30 06/26/19 08:57 64 19 30 06/26/19 08:03 68 155/65 06/26/19 08:00 35 06/26/19 08:00 Mechanical Ventilator 06/26/19 08:00 67 06/26/19 08:00 97.0 68 16 155/65 (95) 100 06/26/19 07:06 65 19 30 06/26/19 04:46 64 16 30 06/26/19 04:00 Mechanical Ventilator 06/26/19 04:00 35 06/26/19 04:00 98.0 62 16 153/77 (102) 100 06/26/19 03:22 62 06/26/19 03:20 68 16 30 06/26/19 00:44 63 18 30 06/26/19 00:00 35 06/26/19 00:00 Mechanical Ventilator 06/26/19 00:00 98.5 68 16 150/70 (96) 100 06/25/19 23:56 67 06/25/19 23:25 64 16 100 Mechanical Ventilator 35 06/25/19 23:24 64 16 30 06/25/19 21:36 62 16 30 06/25/19 21:12 73 154/77 06/25/19 20:00 98.0 69 16 154/77 (102) 100 06/25/19 20:00 68 06/25/19 20:00 Mechanical Ventilator 06/25/19 20:00 35 06/25/19 19:51 68 16 30 Intake and Output 06/25/19 06/26/19 19:00 07:00 Intake Total 1240 ml 1052.5 ml Output Total 750 ml 750 ml Balance 490 ml 302.5 ml Intake Free Water 130 ml 170 ml IV Total 525 ml 342.5 ml Tube Feeding 585 ml 540 ml Output Urine Total 750 ml 750 ml # Bowel Movements 1 1 Laboratory Tests 06/26/19 04:30: White Blood Count 13.1H, Red Blood Count 3.51L, Hemoglobin 9.3L, Hematocrit 29.5L, Mean Corpuscular Volume 84, Mean Corpuscular Hemoglobin 26.4L, Mean Corpuscular Hemoglobin Concent 31.3L, Red Cell Distribution Width 17.1H, Platelet Count 526H, Mean Platelet Volume 5.8L, Neutrophils (%) (Auto) 64.0, Lymphocytes (%) (Auto) 13.6L, Monocytes (%) (Auto) 7.7, Eosinophils (%) (Auto) 13.4H, Basophils (%) (Auto) 1.2, Sodium Level 136, Potassium Level 3.4L, Chloride Level 100, Carbon Dioxide Level 24, Anion Gap 12, Blood Urea Nitrogen 100H, Creatinine 2.1H, Estimat Glomerular Filtration Rate 37.3, Glucose Level 186H, Calcium Level 8.5 Height (Feet): 5 Height (Inches): 4.00 Weight (Pounds): 150 General Appearance: cachetic Cardiovascular: regular rhythm Respiratory/Chest: rhonchi - bilaterally Abdomen: soft Extremities: no edema Neurologic: unresponsive Carmelo Frank MD June 26, 2019 19:27
--- NOTE | 2019-06-27 09:30 | NUR ---
*-* NO DISCHARGE SUMMARY IN THEY SYSTEM *-*
--- NOTE | 2019-06-28 10:52 | Discharge Summary ---
Discharge Summary Discharge Summary _ DATE OF ADMISSION: 06/10/2019 DATE OF DISCHARGE: 06/26/2019 DISCHARGED BY: Dr. Ramirez REASON FOR ADMISSION: 78 years old male, resident of assisted facility, with past medical history of subdural hematoma, chronic respiratory failure, tracheostomy status, ventilator dependent, was sent for evaluation due to abnormal labs. Upon evaluation patient had low-grade fever, no signs of respiratory distress . Patient was noted to be to have generalized edema. Laboratory work-up revealed BUN 97, creatinine 1.9. Glucose 134. Lactic acid 0.8. Troponin 0 0.019. Urinalysis revealed +3 leukocyte esterase, pyuria and few bacteria, +2 protein. ABG was stable on current settings. CBC revealed leukocytosis with WBC 24.4, hemoglobin 8.9, hematocrit 30.3, platelet count 378. EKG revealed paced rhythm Chest x-ray demonstrated bilateral pleural effusion with opacities throughout, right greater than left with concern of pulmonary edema and possible inflammatory process. In emergency department patient received IV Lasix. Patient was transferred to direct observational unit for further management. CONSULTANTS: ID specialist Dr. Lyle privacy officer [facility]. [facility]SE: Patient admitted to direct observational unit. Ventilator support and tracheostomy care provided. Pulmonary toilet provided. Patient started on IV diuresis with close monitoring of volumes and cardiorenal parameters. G-tube feeding resumed with strict aspiration precaution. GI prophylaxis provided. Echocardiogram demonstrated preserved ejection fraction of 60% with no evidence of left ventricular hypertrophy. No evidence of wall motion abnormality. Moderate mitral regurgitation. Right ventricular systolic pressure of 37 consistent with a mild pulmonary hypertension. Blood culture revealed Staph coag negative , 1 out of 2 bottles, likely contaminant. Urine culture revealed Kelsi, probably colonization. Sputum culture showed Pseudomonas and Stenotrophomonas. Patient was on antibiotic as per ID recommendation. Repeated sputum culture showed Pseudomonas. Patient was tested for COVID-19. SARS-CoV-2 by PCR on 06/10 and 06/19 came back not detected. Isolation was discontinued. Patient noted to have diarrhea . Stool for C. difficile was negative. Patient started on lactobacilli. Diarrhea improved significantly. . Leukocytosis trending down, fevers resolved. ID specialist recommended to continue antibiotic for additional 3-day for pneumonia. Renal parameters and electrolytes were closely monitored. Electrolytes corrected as needed, and nephrotoxins were avoided. Renal ultrasound revealed bilateral normal kidney echogenicity. No hydronephrosis. Per privacy officer patient had chronic kidney disease stage V. Configuration Management Advisor recommended avoid nephrotoxic's, continue with diuresis, and s monitor renal parameters in the facility. Respiratory status remained stable on current ventilator settings. Blood sugar was closely monitored and remained stable. Hemoglobin A1c 5.3. Supportive care provided. Strict aspiration precaution maintained. Patient tolerated tube feeding. Protein supplements implemented as per cooking show host recommendation. Patient clinically stabilized and was ready for discharge to assisted facility for continuation of care. FINAL DIAGNOSES: Pseudomonas pneumonia Suspected COVID-19- ruled out Chronic respiratory failure, ventilator dependent Tracheostomy status Leukocytosis -improved Chronic kidney disease stage V Pulmonary edema Uremia Diarrhea /stool C. difficile negative Subdural hematoma Severe protein calorie malnutrition DISCHARGE MEDICATIONS: See Medication Reconciliation list. List of medication was sent to accepting facility DISCHARGE INSTRUCTIONS: Patient was discharged to the assisted facility. Follow up with medical doctor at the facility. I have been assigned to dictate discharge summary for this account. I was not involved in the patient's management. Aliza Schuler NP June 28, 2019 10:52
--- NOTE | 2019-06-28 12:56 | NUR ---
INSURANCE DISCHARGE SUMMARY HAS BEEN FAXED TO: [facility] tracking# [id number] KELSEY Jiménez # [phone] ext [phone] fax# [phone]
== END 2019-06-26 18:37 | DRG 130 ==
LOC: EDBD 14:22 → EMR 16:41 → EDBEDREQ 16:45 → 2W 16:58
PROC: 5A1955Z Respiratory Ventilation, Greater than 96 Consecutive Hours (ICD-10-PCS; principal; 2019-06-10)
DX: J15.1 Pneumonia due to Pseudomonas (principal); J96.10 Chronic respiratory failure, unspecified whether with hypoxia or hypercapnia; Z93.0 Tracheostomy status; E44.0 Moderate protein-calorie malnutrition; Z68.25 Body mass index [BMI] 25.0-25.9, adult; E87.6 Hypokalemia; I13.2 Hypertensive heart and chronic kidney disease with heart failure and with stage 5 chronic kidney disease, or end stage renal disease; N18.5 Chronic kidney disease, stage 5; I50.9 Heart failure, unspecified; E87.5 Hyperkalemia; J81.1 Chronic pulmonary edema; Z99.11 Dependence on respirator [ventilator] status; E11.22 Type 2 diabetes mellitus with diabetic chronic kidney disease; Z74.01 Bed confinement status; Z20.828 Contact with and (suspected) exposure to other viral communicable diseases; L89.154 Pressure ulcer of sacral region, stage 4; I62.03 Nontraumatic chronic subdural hemorrhage; R19.7 Diarrhea, unspecified; N50.89 Other specified disorders of the male genital organs
CPT/HCPCS: 36415; 36600; 71045; 76770; 80048; 80053; 81003; 81050; 82550; 82553; 82575; 82803; 82962; 83036; 83605; 83880; 84156; 84443; 84484; 84550; 85007; 85025; 85610; 85651; 85730; 86140; 87040; 87070; 87081; 87086; 87181; 87205; 87324; 87635; 93005; 93306; 94002; 94003; 94664; 96374; 99285; J1815; J8499

== ENCOUNTER 2019-08-08 18:54 | Inpatient (IN) | payer MEDICAID ==
[~2019-08-08] VITALS: Ht 177.8 cm; Wt 47.9 kg
[~2019-08-08 18:54] MED LIST: ASCORBIC ACID500 MG ORAL; EPOGEN10000 UNIT SUBQ; FERROUS SULFAT325 MG ORAL; HUMALOG100 UNIT/4 SUBQ; HYDRALAZINE HC100 MG ORAL; LOSARTAN POTASS50 MG ORAL; METOPROLOL TAR100 MG ORAL; MULTIVITAMINS1 EAC8 ORAL; NEPHROVITE1 TAB ORAL; POTASSIUM CHLO20 ME3 PO; PROBIOTIC1 EAC2 PO; PROTONIX40 MG ORAL
[2019-08-08] MEDS ORDERED: LOPRESSOR5 MG/5 ML GT (19:31)
[2019-08-08] MEDS ORDERED: ACETAMINOP160 MG/5 M GT (19:31)
[2019-08-08] MEDS ORDERED: PREVACID30 MG GT (19:31)
[2019-08-08] MEDS ORDERED: VITAMIN C500 M1 GT (19:31)
[2019-08-08] MEDS ORDERED: RENA-VITE TABL0.8 M1 GT (19:31)
[2019-08-08] MEDS ORDERED: VITAMIN D32400 UNIT/ GT (19:31)
[2019-08-08] MEDS ORDERED: NOVOLOG100 UNITS1 (19:31)
[2019-08-08] MEDS ORDERED: LOTENSIN20 MG GT (19:31)
[2019-08-08] MEDS ORDERED: HEPARIN SO5000 UNIT2 SUBQ (19:31)
[2019-08-08] MEDS ORDERED: MINOXIDIL5 GM GT (19:31)
[2019-08-08] MEDS ORDERED: IMODIUM A-1 MG/7.5 M GT (19:31)
[2019-08-08] MEDS ORDERED: LIPITOR40 MG GT (19:31)
[2019-08-08] MEDS ORDERED: JUVEN PACKET1 EAC1 GT (19:31)
[2019-08-08] MEDS ORDERED: CRANBERRY425 MG GT (19:31)
--- NOTE | 2019-08-08 20:00 | NUR ---
ED Nurse Note: Xray at bedside
[2019-08-08 20:08] LABS: HEMATOCRIT 21.8 % (42.0-52.0); MEAN CORPUSCULAR VOLUME 82 FL (80-99); PLATELET COUNT 513 K/UL (150-450); RED BLOOD COUNT 2.67 M/UL (4.70-6.10)
[2019-08-08 20:11] LABS: APPEARANCE,URINE CLEAR; BILIRUBIN, URINE NEGATIVE (NEGATIVE); COLOR,URINE PALE YELLOW; GLUCOSE, URINE (UA) NEGATIVE (NEGATIVE); KETONES,URINE NEGATIVE (NEGATIVE); LEUKOCYTE ESTERASE ,URINE 2+ (NEGATIVE); NITRITE,URINE NEGATIVE (NEGATIVE); PH,URINE 5 (4.5-8.0); PROTEIN,URINE 2+ (NEGATIVE); UROBILINOGEN,URINE NORMAL MG/DL (0.0-1.0)
[2019-08-08 20:13] LABS: HEMOGLOBIN 6.5 G/DL (14.2-18.0); WHITE BLOOD COUNT 32.8 K/UL (4.8-10.8)
[2019-08-08] MEDS ORDERED: Vancomycin 1 GM in NS 275 ML IVPB ONE (20:15)
[2019-08-08] MEDS ORDERED: Azithromycin 500 MG in D5W 275 ML IVPB ONE (20:15)
[2019-08-08] MEDS ORDERED: cefTRIAXone 1 GM in NS 55 ML IVPB ONE (20:15)
--- NOTE | 2019-08-08 20:17 | Emergency Room Report ---
History of Present Illness General Chief Complaint: Abnormal Labs Source: Medical Record, EMS Present Illness HPI Patient sent in for increased BUN and creatinine. Patient is vent dependent and cannot converse. The patient is in a vegetative state. The patient was discharged from the hospital June 25 with these discharge diagnoses: Pseudomonas pneumonia Suspected COVID-19- ruled out Chronic respiratory failure, ventilator dependent Tracheostomy status Leukocytosis -improved Chronic kidney disease stage V Pulmonary edema Uremia Diarrhea /stool C. 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 Patient History Limited by: medical condition Past Medical History: see triage record, old chart reviewed Past Surgical History: other - g tube, trach Social History Narrative full code, SNF Reviewed Nursing Documentation: PMH: Agreed; PSxH: Agreed Nursing Documentation-PMH Hx Cardiac Problems: Yes Hx Hypertension: Yes Hx Pacemaker: Yes Hx Diabetes: Yes Hx Gastrointestinal Problems: Yes - gtube, impaired swallowing Hx Neurological Problems: No Review of Systems All Other Systems: limited Physical Exam Vital Signs Date Time Temp Pulse Resp B/P (MAP) Pulse Ox O2 Delivery O2 Flow Rate FiO2 08/08/19 18:59 98.2 61 20 137/62 (87) 100 Mechanical Ventilator 5.0 General Appearance: no apparent distress, Chronically Ill Head: normocephalic Eyes: right eye PERRL - Will not open left eye ENT: moist mucus membranes Neck: other - submandibular mass R, fairly rigid with resistance to rotation to L, tracheotomy Respiratory: decreased breath sounds, crackles, other - pacemaker Cardiovascular #1: regular rate, rhythm, edema - anasarca Cardiovascular #2: 2+ radial (L) Gastrointestinal: non tender, distended, other - G tube Genitourinary: other Musculoskeletal: other - Contractures all extremities Neurologic: sensory intact, motor weakness, responsive Psychiatric: other Skin: Decubitus/Ulcer - Stage III right elbow, stage III left elbow, stage II sacrum, stage III scrotum, warm/dry Medical Decision Making Diagnostic Impression: Primary Impression: Right lower lobe pneumonia Qualified Codes: J18.9 - Pneumonia, unspecified organism Additional Impressions: Ventilator dependent Leukocytosis Qualified Codes: D72.828 - Other elevated white blood cell count Hyponatremia Anemia Qualified Codes: D64.9 - Anemia, unspecified Decubitus skin ulcer Qualified Codes: L89.899 - Pressure ulcer of other site, unspecified stage Scrotal edema ER Course Patient presents with elevated BUN after recent discharge from the hospital for pseudomonal pneumonia and other medical problems. Differential includes sepsis , acute renal failure, electrolyte imbalance, hyperkalemia, volume depletion, COVID-19, pneumonia, urinary tract infection amongst others. Evaluation with EKG, chest x-ray and labs. Treatment with IV hydration. Patient placed on a telemetry monitor. Extremely complicated patient unable to give history and with multiple comorbidities. Isolation COVID-19 testing undertaken. EKG without injury, paced. Chest x-ray with right pneumonia. Call with leukocytosis and chest x-ray with infiltrate. Triple antibiotics begun. 2020 Other labs reveal acute renal failure without hyperkalemia. Sodium 121. Lactic acid normal. Elevated BNP. Troponin negative. Urine with pyuria. During the recent hospitalization the patient had elevated BUN and creatinine however not this elevated. In addition his sodium was not this low. Patient remains in vegetative state. Vital signs remained stable. Patient without dyspnea. Patient admitted stepdown unit. Laboratory Tests Test 08/08/19 19:35 08/08/19 19:50 08/08/19 20:10 Urine Color Pale yellow Urine Appearance Clear Urine pH 5 (4.5-8.0) Urine Specific Howard 1.010 (1.005-1.035) Urine Protein 2+ (NEGATIVE) H Urine Glucose (UA) Negative (NEGATIVE) Urine Ketones Negative (NEGATIVE) Urine Blood Negative (NEGATIVE) Urine Nitrite Negative (NEGATIVE) Urine Bilirubin Negative (NEGATIVE) Urine Urobilinogen Normal MG/DL (0.0-1.0) Urine Leukocyte Esterase 2+ (NEGATIVE) H Urine RBC 0-2 /HPF (0 - 0) H Urine WBC 10-15 /HPF (0 - 0) H Urine Squamous Epithelial Cells None /LPF (NONE/OCC) Urine Bacteria Many /HPF (NONE) H Urine Yeast Moderate /HPF (NONE) H White Blood Count 32.8 K/UL (4.8-10.8) *H Red Blood Count 2.67 M/UL (4.70-6.10) L Hemoglobin 6.5 G/DL (14.2-18.0) *L Hematocrit 21.8 % (42.0-52.0) L Mean Corpuscular Volume 82 FL (80-99) Mean Corpuscular Hemoglobin 24.5 PG (27.0-31.0) L Mean Corpuscular Hemoglobin Concent 30.0 G/DL (32.0-36.0) L Red Cell Distribution Width 18.0 % (11.6-14.8) H Platelet Count 513 K/UL (150-450) H Mean Platelet Volume 5.3 FL (6.5-10.1) L Neutrophils (%) (Auto) % (45.0-75.0) Lymphocytes (%) (Auto) % (20.0-45.0) Monocytes (%) (Auto) % (1.0-10.0) Eosinophils (%) (Auto) % (0.0-3.0) Basophils (%) (Auto) % (0.0-2.0) Differential Total Cells Counted 100 Neutrophils % (Manual) 87 % (45-75) H Lymphocytes % (Manual) 8 % (20-45) L Monocytes % (Manual) 2 % (1-10) Eosinophils % (Manual) 1 % (0-3) Basophils % (Manual) 0 % (0-2) Metamyelocytes % 2 % (0-0) H Band Neutrophils 0 % (0-8) Platelet Estimate Increased H Platelet Morphology Normal Polychromasia 1+ Hypochromasia 2+ Anisocytosis 2+ Prothrombin Time 13.0 SEC (9.30-11.50) H Prothrombin Time INR 1.2 (0.9-1.1) H Activated Partial Thromboplast Time 33 SEC (23-33) D-Dimer 2.22 mg/L FEU (0.00-0.49) H Sodium Level 121 MMOL/L (136-145) L Potassium Level 4.5 MMOL/L (3.5-5.1) Chloride Level 90 MMOL/L (98-107) L Carbon Dioxide Level 22 MMOL/L (21-32) Anion Gap 9 mmol/L (5-15) Blood Urea Nitrogen 146 mg/dL (7-18) H Creatinine 3.5 MG/DL (0.55-1.30) H Estimated Glomerular Filtration Rate 17.0 mL/min (>60) Glucose Level 156 MG/DL (74-106) H Lactic Acid Level 0.70 mmol/L (0.4-2.0) Calcium Level 8.6 MG/DL (8.5-10.1) Magnesium Level 4.3 MG/DL (1.8-2.4) H Ferritin 356 NG/ML (8-388) Total Bilirubin 0.3 MG/DL (0.2-1.0) Aspartate Amino Transferase (AST) 23 U/L (15-37) Alanine Aminotransferase (ALT) 22 U/L (12-78) Alkaline Phosphatase 239 U/L (46-116) H Lactate Dehydrogenase 148 U/L (81-234) Total Creatine Kinase 29 U/L (26-308) Troponin I 0.004 ng/mL (0.000-0.056) C-Reactive Protein, Quantitative 18.1 mg/dL (0.00-0.90) H Pro-B-Type Natriuretic Peptide 7513 pg/mL (0-125) H Total Protein 7.1 G/DL (6.4-8.2) Albumin 1.7 G/DL (3.4-5.0) L Globulin 5.4 g/dL Albumin/Globulin Ratio 0.3 (1.0-2.7) L Lipase 176 U/L (73-393) Thyroid Stimulating Hormone (TSH) 3.171 uiU/mL (0.358-3.740) POC Whole Blood Glucose 146 MG/DL (74-106) H EKG Diagnostic Results Rate: normal Rhythm: other - paced ST Segments: no acute changes Rhythm Strip Diag. Results Rhythm: no PVC's, no ectopy, other - paced Chest X-Ray Diagnostic Results Chest X-Ray Diagnostic Results : Chest X-Ray Ordered: Yes # of Views/Limited/Complete: 1 View Indication: Other EP Interpretation: Yes Interpretation: no effusion, no pneumothorax, other - RLL infiltrate Impression: Other Electronically Signed by: Electronically signed by Kenny Serrato MD Last Vital Signs Date Time Temp Pulse Resp B/P (MAP) Pulse Ox O2 Delivery O2 Flow Rate FiO2 08/08/19 23:08 71 16 25 08/08/19 20:25 98.2 119/42 99 Mechanical Ventilator 5.0 Status: improved Disposition: ADMITTED INPATIENT Condition: Critical Referrals: Kain Ramirez MD (PCP) Kenny Serrato MD Aug 08, 2019 20:17
[2019-08-08 20:18] LABS: ANION GAP 9 mmol/L (5-15); BLOOD UREA NITROGEN 146 mg/dL (7-18); CALCIUM 8.6 MG/DL (8.5-10.1); CARBON DIOXIDE 22 MMOL/L (21-32); CHLORIDE 90 MMOL/L (98-107); CREATININE 3.5 MG/DL (0.55-1.30); POTASSIUM 4.5 MMOL/L (3.5-5.1); SODIUM 121 MMOL/L (136-145)
[2019-08-08 20:19] LABS: INR 1.2 (0.9-1.1)
--- NOTE | 2019-08-08 20:24 | NUR ---
ED Nurse Note: COVID swab collected and sent to lab
[2019-08-08 20:25] VITALS: BP 119/42
[2019-08-08 20:35] LABS: ALANINE AMINOTRANSFERASE 22 U/L (12-78); ALBUMIN 1.7 G/DL (3.4-5.0); ALBUMIN/GLOBULIN RATIO 0.3 (1.0-2.7); ALKALINE PHOSPHATASE 239 U/L (46-116); ASPARTATE AMINO TRANSFERASE 23 U/L (15-37); BILIRUBIN,TOTAL 0.3 MG/DL (0.2-1.0); CREATINE KINASE 29 U/L (26-308); FERRITIN 356 NG/ML (8-388); LACTATE DEHYDROGENASE 148 U/L (81-234)
--- NOTE | 2019-08-09 00:23 | NUR ---
ED Nurse Note: Report given to TAMICA Atkinson
--- NOTE | 2019-08-09 00:50 | NUR ---
TRANSFER TO FLOOR: Patient transferred to SDU as ordered, per ERMD. Report given to TAMICA Atkinson. Patient transported via gurney on ACLS protocol with responder accompanied by 1 RN, health care technician and RT in stable condition.
[2019-08-09 01:30] VITALS: BP 153/60
--- NOTE | 2019-08-09 01:30 | NUR ---
NURSE NOTES: Received pt. from Alexandra, pt. in bed with eyes open- obtunded, non-verbal- not able to make needs known, pt. appears to be tolerating current vent settings well- AC 15, TV 450, Fio2 @25% and peep 5, No signs or symptoms of acute cardiac or respiratory distress noted, pt. oriented to room and pt. teaching done- pt. does not appear to comprehend, G tube to upper and quadrant- patent and intact- dressing changed, Avalos intact and draining clear yellow urine, generalist placed, VS taken- full body assessment done- pt. appears to have open wounds to left upper thigh area, patients skin appears very dry- generalized edema, bilateral hands 3+ pitting edema and bilateral lower legs appears to be 2+ pitting edema, scrotum/ penile area appears to be swollen, rt. elbow, sacral area, scrotum area and penile area- wound care pictures taken and wound dressings changed- wound care interventions done, RT. wrist 24G IV intact and patent, will continue to monitor pt. and with plan of care. Will contact doctor for admitting orders. Addendum: 08/09/19 at 0431 by ODALYS DYSON RN RN pt. noted to have black tarry stool- upon assessment.
--- NOTE | 2019-08-09 02:24 | NUR ---
NURSE NOTES: Left message for DR. Ramirez for new admit orders- awaiting for call back from doctor.
--- NOTE | 2019-08-09 03:42 | NUR ---
NURSE NOTES: left another message for DR. Ramirez-awaiting for wound care orders.
[2019-08-09 04:00] VITALS: BP 156/64
--- NOTE | 2019-08-09 04:21 | NUR ---
NURSE NOTES: annual greenhouse manager Ashely Ferreira- notified unable to reach doctor for admitting orders- she will try to contact doctor.
--- NOTE | 2019-08-09 04:52 | NUR ---
NURSE NOTES: Per household coordinator DR. Ramirez will call back with orders.
--- NOTE | 2019-08-09 04:56 | NUR ---
NURSE NOTES: per DR. Ramirez to resume all snf orders- transfuse 3U PRBC, NS @100cc/hr, renal US, Zosyn 3.375g IV Q6hrs, and Vanco IV per pharmacy, resume snf meds, vent settings, tube feeding from SNF, CBC, BMP in am, Duplex for legs- DVT, Tylenol 650mg Q4 hrs prn fever/pain, Mylanta 30cc R9pquim prn, Protonix 40mg po QD. Also mentioned to doctor which meds from snf he would like to continue as there are many listed, also mentioned pt. had black tarry stool and if we can get orders for PICC line, and who he prefers for wound care consult- awaiting for call back from doctor. Addendum: 08/09/19 at 0541 by ODAYLS DYSON RN RN orders carried out.
--- NOTE | 2019-08-09 05:39 | NUR ---
NURSE NOTES: will continue all snf meds as ordered by DR. Ramirez- orders carried out.
--- NOTE | 2019-08-09 05:51 | NUR ---
NURSE NOTES: per DR. Martins- to continue all long term meds- and he will call GI.- will carry out orders. Addendum: 08/09/19 at 0725 by ODALYS DYSON RN RN Also okay to put wound care consult in and order picc line order.
--- NOTE | 2019-08-09 06:51 | NUR ---
NURSE NOTES: spoke with Saran Guzman at [facility]- and went over med list pages 5/6 in chart- all correct and that pt. is on NovoLog medium scale.
[2019-08-09 07:02] LABS: ANION GAP 10 mmol/L (5-15); BLOOD UREA NITROGEN 144 mg/dL (7-18); CALCIUM 8.9 MG/DL (8.5-10.1); CARBON DIOXIDE 20 MMOL/L (21-32); CHLORIDE 91 MMOL/L (98-107); CREATININE 3.4 MG/DL (0.55-1.30); POTASSIUM 4.9 MMOL/L (3.5-5.1); SODIUM 121 MMOL/L (136-145)
[2019-08-09 07:13] LABS: HEMATOCRIT 23.7 % (42.0-52.0); MEAN CORPUSCULAR VOLUME 83 FL (80-99); PLATELET COUNT 530 K/UL (150-450); RED BLOOD COUNT 2.84 M/UL (4.70-6.10); RED CELL DISTRIBUTION WIDTH 17.2 % (11.6-14.8)
[2019-08-09 07:15] LABS: HEMOGLOBIN 6.9 G/DL (14.2-18.0); WHITE BLOOD COUNT 31.2 K/UL (4.8-10.8)
--- NOTE | 2019-08-09 07:26 | NUR ---
HAND-OFF: Report given to Ruth RN, pt. remains stable and no signs of distress noted, aware to f/u on any am abnormal labs- aware to f/u on blood transfusion and feeding and picc line order. Aware of black tarry stool.
--- NOTE | 2019-08-09 07:30 | NUR ---
NURSE NOTES: Report received from Saleem DAVEY.Pt asleep noted no resp distress,with trach tube to vent,settings AC 15,TV450,Fio2 25%,Peep 5,no signs of pain or discomfort,V-Paced on the monitor,GT clamped,with orders to start Nepro at 45 ml/hr, Avalos cath draining yellow urine,,skin warm and dry,IV site to RT wrist 24 G intact,,SR up x2 HOB elevated,bed lock in lowest position,will continue with plans of care.
--- NOTE | 2019-08-09 07:30 | NUR ---
RD ASSESSMENT & RECOMMENDATIONS SEE CARE ACTIVITY FOR COMPLETE ASSESSMENT DAILY ESTIMATED NEEDS: Needs based on Renal, critical care, wound/ 61kg 22-28 kcals/kg [id number] total kcals 1-1.25 (increase w/ renal improvement) g protein/kg 61-76 g total protein 20-25 mL/kg 1263-4099 total fluid mLs NUTRITION DIAGNOSIS: * Swallowing difficulty R/T respiratory failure, dysphagia as evidenced by trach/vent dep, PEG dep * Increased kcal/prot needs R/T wound healing as evidenced by admitted w/ multiple pressure injuries per photos, pending eval. CURRENT TF:Nepro @ 45ml/hr x 24 hrs ENTERAL NUTRITION RECOMMENDATIONS: NEPRO to 45ml/hr x 20 hrs to provide 900ml, 1620kcal, 73g prot, 654ml free water * Maintain current TF * HOB over 30 degrees/ water flush per MD ADDITIONAL RECOMMENDATIONS: * Per SNF: HT=63" WW=207 lbs (Vs EMR wt of 165lbs) -> obtain re-calibrated bedscale wt * Wound healing: add Nephrovite x 1 + Vit C 250mg QD add Garo 1pkt BID via GT * Monitor renal fxn and lytes, check phos level .
[2019-08-09 07:51] VITALS: BP 141/70
[2019-08-09] MEDS ORDERED: Heparin1,000 units/500ml Premix(Conc:2 units/ml) IV SCH (08:00)
[2019-08-09] MEDS ORDERED: Lidocaine 1% Plain 30 ml INJ SCH (08:30)
[2019-08-09] MEDS ORDERED: Ascorbic Acid 500mg tab ORAL SCH (09:00)
[2019-08-09] MEDS ORDERED: Ferrous Sulfate 300 MG/5 ML UDC GT SCH (09:00)
[2019-08-09] MEDS ORDERED: Heparin 5000 units/ml inj SUBQ SCH (09:00)
--- NOTE | 2019-08-09 09:34 | NUR ---
*-* INSURANCE *-* ALL AVAILABLE CLINICALS HAVE BEEN FAXED TO: ELIN P:[phone] F:[phone]
[2019-08-09] MEDS: Nephrovite tab (Rena-Vite) GT SCH (09:58)
[2019-08-09] MEDS: Piperacillin/Tazobactam 3.375 GM in NS 110 ML IVPB SCH ×2 (09:58→19:53)
[2019-08-09] MEDS: Minoxidil 2.5mg tab GT SCH (09:58)
[2019-08-09] MEDS: Ascorbic Acid 500mg tab GT SCH (09:59)
[2019-08-09] MEDS: Benazepril 10mg tab GT SCH (09:59)
[2019-08-09] MEDS: Vitamin D 1000 IU Tab GT SCH (09:59)
[2019-08-09] MEDS: Metoprolol Tartrate 100mg tab GT SCH ×2 (10:00→21:03)
--- NOTE | 2019-08-09 10:00 | NUR ---
NURSE NOTES: Oral care done,Tracheal /oral secretions suctioned tothick perez colored phlegm in mod amount.
[2019-08-09] MEDS: Multivitamins W/Minerals 15 ML UDC GT SCH (10:03)
--- NOTE | 2019-08-09 10:09 | Diagnostic Imaging Report ---
Indication: Chest pain Technique: One view of the chest Comparison: 06/14/2019 Findings: Tracheostomy, left chest pacemaker are again demonstrated. There is bilateral interstitial and airspace disease and bilateral pleural fluid again demonstrated. This appears more severe than on the prior study. Impression: Bilateral interstitial and airspace infiltrates versus edema. Bilateral pleural effusions
[2019-08-09 11:05] LABS: CREATININE 3.5 MG/DL (0.55-1.30)
[2019-08-09] MEDS: NovoLOG Insulin Flexpen SUBQ SCH ×3 (11:45→23:19)
[2019-08-09 12:00] VITALS: BP 140/74
[2019-08-09] MEDS ORDERED: NaCl 3% 500ml 250 ML IV ONE (12:00)
--- NOTE | 2019-08-09 12:45 | History and Physical Report ---
DATE OF ADMISSION: 08/08/2019 REASON FOR ADMISSION: Sepsis, acute on chronic renal failure, profound anemia. HISTORY OF PRESENT ILLNESS: This is a 79-year-old male, who presents with abnormal labs. The patient is comatose, ventilator dependent, unable to give any history at this time. The patient is seen and evaluated in the emergency room, was confirmed to have these abnormal labs and now admitted. PAST MEDICAL HISTORY: Notable for respiratory failure, chronic; chronic renal failure; hypertension; chronic anemia; hypertensive heart disease; prior history of sepsis; pressure ulcers; pneumonia with ventilator dependence. MEDICATIONS: Reviewed. ALLERGIES: Reviewed. SOCIAL HISTORY: Resides at a subacute. REVIEW OF SYSTEMS: Unobtainable. PHYSICAL EXAMINATION: GENERAL: Ill-appearing male, chronically debilitated. VITAL SIGNS: Reviewed. Blood pressure 141/70, pulse 68, respirations 16, saturation 99%, temperature 97.6. HEENT: Tracheostomy in midline. Questionable fullness in the submandibular region. LUNGS: Coarse breath sounds. CARDIAC: S1, S2. Regular rate and rhythm. ABDOMEN: Soft. G-tube. EXTREMITIES: With noted edema. NEUROLOGICAL: Poorly responsive, weak diffusely. LABORATORY DATA: Reviewed. Urinalysis with 10 to 15 whites. Chemistry, sodium 121, BUN 144, creatinine 3.4. C-reactive protein is 18. Troponin is negative. White count 31, hemoglobin 6.9, hematocrit 23, and platelets of 530,000. IMPRESSION: 1. Profound anemia. 2. Possible GI bleed. 3. Leukocytosis. 4. Probable sepsis. 5. Acute on chronic renal failure. 6. Hyponatremia. 7. Severe protein-calorie malnutrition. 8. Significantly elevated C-reactive protein concerning for infectious etiology. 9. Tracheostomy, G-tube. 10. Ventilator dependence. RECOMMENDATION: IV antibiotics. ID evaluation. Renal evaluation. GI evaluation. Transfuse and monitor the labs and recommend further. Hope to avoid dialysis. Prognosis is very poor. We will need to update family. Kain Ramirez M.D. DR: ANKUR JOB#: [id number] CC:
--- NOTE | 2019-08-09 12:51 | NUR ---
CASE MANAGEMENT: REVIEW 79 YEAR OLD MALE BIBA FROM [facility] CC: ABNORMAL LABS SI: RIGHT LOWER LOBE PNA . ANEMIA T 98.2 HR 61 RR 20 BP 119/42 SAT 99% MECH VENT FIO2 25 WBC 32.8 H/H 6.5/21.8 NA 121 BUN 144 CR 3.5 IS: AZITHROMYCIN IV X1 CEFTRIAXONE IV X1 VANCOMYCIN IV X1 NS IVF BOLUS X1 TRANSFUSE PRBC PATIENT ADMITTED TO STEP DOWN UNIT 08/08/2019 DCP: PATIENT IS FROM [facility]
--- NOTE | 2019-08-09 14:00 | Consultation ---
DATE OF CONSULTATION: 08/09/2019 INFECTIOUS DISEASE CONSULTATION CONSULTING PHYSICIAN: Farnaz Lyle MD. REFERRING PHYSICIAN: Kain Ramirez MD. REASON FOR CONSULTATION: Rule out COVID-19 pneumonia. HISTORY OF PRESENTING ILLNESS: This is a 79-year-old gentleman with history of respiratory failure, status post tracheostomy, G-tube placement, as well as hypertension, and diabetes who comes in with elevated BUN and creatinine. There is a concern for COVID-19 pneumonia and an Infectious Disease consultation has been obtained for antibiotics. PAST MEDICAL HISTORY: 1. History of diabetes. 2. History of hypertension. 3. History of cardiac disease. 4. Respiratory failure, status post tracheostomy. 5. History of G-tube placement. SOCIAL HISTORY: Unknown. FAMILY HISTORY: Unknown. REVIEW OF SYSTEMS: Unable to obtain currently. MEDICATIONS: As an inpatient, he is on Epogen, atorvastatin, chlorhexidine gluconate, insulin, lansoprazole, potassium, vitamin B and C, folic acid, ascorbic acid, vitamin D, multivitamin, minoxidil, benazepril, metoprolol, loperamide, Zosyn, Mylanta, IV vancomycin, Tylenol. ALLERGIES: No known drug allergies. PHYSICAL EXAMINATION: VITAL SIGNS: Temperature 96.6, T-max of 98.2, pulse of 69, respiratory rate 16, and blood pressure 141/70. O2 saturation of 99%. Examination deferred due to possibility of COVID-19 LABORATORY AND DIAGNOSTIC DATA: White count 31.2, hemoglobin 6.9, hematocrit 23.7, MCV 83, and platelet count of 530,000, neutrophils of 87%. Sodium 121, potassium 4.9, chloride 91, bicarb 20, BUN 144, creatinine 3.4. Glucose 172. Calcium 8.9. Total bilirubin 0.3, AST 23, ALT 22, alkaline phosphatase 239. LDH 148. CK of 29. Troponin 0.004. C-reactive protein of 18. Beta-natriuretic peptide 7513. Total protein 7.1, albumin 1.7. Lipase of 176. UA showing 10 to 15 white cells. Urine cultures are negative. Chest x-ray showing bilateral interstitial and airspace infiltrates, bilateral pleural effusions noted. ASSESSMENT: This is a 79-year-old gentleman with history of diabetes, hypertension, and respiratory failure, status post tracheostomy, who comes in with abnormal labs and is found to have, 1. Pneumonia. Would like to rule out COVID-19 pneumonia as a possibility. 2. Renal failure. 3. Leukocytosis. 4. Respiratory failure, status post tracheostomy. PLAN: 1. Continue Zosyn. 2. Discontinue IV vancomycin. 3. We will order sputum for Gram stain and culture. 4. COVID-19 test is pending. 5. Continue isolation. 6. We will follow up cultures and adjust antibiotics accordingly. I would like to thank Dr. Ramirez for this consultation. Farnaz Lyle M.D. DR: ANNIE JOB#: [id number] CC:
--- NOTE | 2019-08-09 14:09 | Diagnostic Imaging Report ---
Indication: Reason For Exam: DVT Technique: Grayscale and duplex images of the bilateral lower extremity veins Comparison: None Findings: Bilaterally, grayscale and duplex images demonstrate no evidence of intraluminal thrombus. Normal phasic Doppler waveforms, demonstrating normal augmentation response and no evidence of valvular insufficiency. Greater saphenous vein(s) and tibial veins are patent. Normal compressibility. Impression: Negative for evidence of lower extremity deep venous thrombosis bilaterally
--- NOTE | 2019-08-09 14:30 | Consultation ---
DATE OF CONSULTATION: 08/09/2019 NEPHROLOGY CONSULTATION CONSULTING PHYSICIAN: Erica Pichardo MD. ATTENDING PHYSICIAN: Kain Ramirez MD. REASON FOR CONSULTATION: Elevated BUN and creatinine. HISTORY OF PRESENT ILLNESS: This is a 79-year-old male from [facility] [place], who was transferred to the hospital due to elevated BUN and creatinine. The patient is ventilator dependent person due to anoxic encephalopathy. PAST MEDICAL HISTORY: 1. Anoxic encephalopathy. 2. Ventilator dependent. 3. Chronic kidney disease, multifactorial. 4. Anemia of chronic kidney disease. 5. Type 2 diabetes mellitus. CARE HOME MEDICATIONS: Tube feeding, azithromycin, ceftriaxone, Zosyn, IV fluids, normal saline, ascorbic acid, atorvastatin, benazepril, Epogen, oral iron, Prevacid, Imodium p.r.n., metoprolol, minoxidil, multivitamins, Mylanta p.r.n., Nephro-Eileen, Protonix, K-Dur. ALLERGIES: No known allergies. FAMILY HISTORY: Unable to obtain due to mental status. SOCIAL HISTORY: Unable to obtain due to mental status. REVIEW OF SYSTEMS: Unable to obtain due to mental status. PHYSICAL EXAMINATION: GENERAL: This is an elderly, chronically ill-appearing, obese male who is on a ventilator. VITAL SIGNS: Blood pressure 141/70, pulse 69 and regular, respirations 20, and temperature 96.6, axillary. HEENT: The head is normocephalic and atraumatic. Pupils are equal, round, and reactive to light. NECK: Supple. He has a midline tracheostomy. LUNGS: Bilateral rhonchi and wheezes. HEART: Regular rate and rhythm without rubs, murmurs, or gallops. ABDOMEN: Soft and nontender. Bowel sounds were active. He has a G-tube. EXTREMITIES: He has contractures. No clubbing, cyanosis, or edema. NEUROLOGICAL: He is obtunded. There were no gross focal findings. LABORATORY AND ANCILLARY DATA: Sodium is 121, potassium 4.9, chloride 91, BUN 144, creatinine 3.4, estimated GFR 17.6, glucose 172. CBC shows white count of 31,200, hemoglobin 6.9, and platelet count 530,000. Urine cultures no growth. Urinalysis 10 to 15 white blood cells, many bacteria. IMAGING REPORT: Chest x-ray, bilateral interstitial and airspace infiltrates versus edema. ASSESSMENT: 1. Close to end-stage renal failure, multifactorial. 2. Anoxic encephalopathy. 3. Ventilator dependent. 4. Chronic kidney disease, multifactorial. 5. Anemia of chronic kidney disease. 6. Type 2 diabetes mellitus. 7. Hyponatremia, most likely chronic. PLAN: 1. Try to correct hyponatremia. 2. Estimated GFR by urine collection. 3. Treat the septicemia per attending physician. Thank you, Dr. Ramirez, for letting me to participate in the care of this patient. Wilman Newby JOB#: [id number] CC:
--- NOTE | 2019-08-09 15:48 | Diagnostic Imaging Report ---
Indication: Chronic renal failure Technique: Grayscale and duplex images of the kidneys, retroperitoneum, and bladder were obtained. Comparison: 06/13/2019 Findings: Right kidney measures 9.3 cm in length. Left kidney measures 9.2 cm in length. Both kidneys demonstrate slightly increased echogenicity. No hydronephrosis. No focal abnormality. Normal inferior vena cava. Bladder is empty, contains a Avalos catheter. Pleural effusion is incidentally noted on the left Note that the increased renal echogenicity is a new finding since prior study Impression: Negative for hydronephrosis Increased renal echogenicity, consistent with medical renal disease Avalos catheter within empty bladder. Small left pleural effusion.
[2019-08-09 16:00] VITALS: BP 158/71
--- NOTE | 2019-08-09 16:25 | NUR ---
NURSE NOTES: Transfused ist unit of PRBC,V/S monitored,stable,no bld transfusion reaction noted.
--- NOTE | 2019-08-09 16:43 | Consultation ---
History of Present Illness General Date patient seen: Aug 09, 2019 Chief Complaint: Abnormal Labs Present Illness HPI This is a very unfortunate 79-year-old male with multi-medical comorbidities who is a care facility care dependent patient nonverbal presenting for abnormal labs. Patient admits to [facility] for further care and management from the emergency department and identified to have abnormal labs, malnutrition , worsening wounds. Surgery called to evaluate and assist with care and management. Patient seen, patient evaluated, chart reviewed. Imaging reviewed labs reviewed micro reviewed Allergies: Coded Allergies: No Known Allergies (Unverified , 06/10/19) Medication History Scheduled Acetaminophen 160MG/5ML* (Acetaminophen*), 20 ML GT DAILY, (Reported) Ascorbic Acid* (Ascorbic Acid*), 500 MG ORAL DAILY, (Reported) Ascorbic Acid* (Vitamin C*), 500 MG GT DAILY, (Reported) Atorvastatin Calcium* (Lipitor*), 40 MG GT BEDTIME, (Reported) Benazepril Hcl* (Lotensin*), 20 MG GT DAILY, (Reported) Cholecalciferol (Vitamin D3) (Vitamin D3), 1,000 UNIT GT DAILY, (Reported) Epoetin Andreas (Epogen), 10,000 UNIT SUBQ 3XW, (Reported) Ferrous Sulfate* (Ferrous Sulfate*), 325 MG ORAL DAILY, (Reported) Heparin Sod (Porcine) (Heparin Sodium*), 5,000 UNITS SUBQ EVERY 12 HOURS, ( Reported) Hydralazine Hcl* (Hydralazine Hcl*), 100 MG ORAL EVERY 8 HOURS, (Reported) Lansoprazole* (Prevacid*), 30 MG GT DAILY, (Reported) Losartan Potassium* (Losartan Potassium*), 100 MG ORAL DAILY, (Reported) Metoprolol Tartrate* (Metoprolol Tartrate*), 100 MG ORAL EVERY 12 HOURS, ( Reported) Multivitamin With Minerals (Multivitamins With Minerals*), 1 TAB ORAL DAILY, ( Reported) Pantoprazole* (Protonix*), 40 MG ORAL DAILY, (Reported) Vitamin B Cmplx/Vit C/Folic AC (Nephro-Eileen Tablet), 1 TAB ORAL DAILY, (Reported ) Miscellaneous Medications Arginine/Glutamine/Calcium Hmb (Garo Packet), 1 EACH GT, (Reported) Cranberry Extract (Cranberry), 425 MG GT, (Reported) Folic Acid/Vitamin B Comp W-C (Radha-Eileen Tablet), 0.8 MG GT, (Reported) Insulin Aspart (Novolog Flexpen), (Reported) Insulin Lispro (Humalog), 0 SUBQ, (Reported) Lactobacillus Acidophilus (Probiotic), 1 EACH PO, (Reported) Loperamide Hcl (Imodium A-D), 1 MG GT, (Reported) Metoprolol Tartrate* (Lopressor*), 200 MG GT, (Reported) Minoxidil (Minoxidil), 5 MG GT, (Reported) Potassium Chloride (Potassium Chloride), 20 MEQ PO, (Reported) Patient History Limited by: medical condition History Provided By: Medical Record, PMD Healthcare decision maker Resuscitation status Advanced Directive on File Past Medical/Surgical History Past Medical/Surgical History: (1) Hypokalemia (2) Anasarca (3) Uremia (4) CKD (chronic kidney disease) stage 5, GFR less than 15 ml/min (5) Decubitus skin ulcer (6) Malnutrition (7) Hyperkalemia (8) Anemia (9) Hyponatremia (10) Leukocytosis (11) Ventilator dependent (12) Right lower lobe pneumonia Review of Systems ROS Narrative Unable to obtain given baseline medical condition Physical Exam General Appearance: lethargic, mild distress Lines, tubes and drains: peripheral HEENT: mucous membranes moist Neck: trach Respiratory/Chest: other Abdomen: soft, no organomegaly, feeding tube Extremities: no calf tenderness, slow capillary refill Skin Exam: warm/dry Neurologic: aphasia Last 24 Hour Vital Signs Date Time Temp Pulse Resp B/P (MAP) Pulse Ox O2 Delivery O2 Flow Rate FiO2 08/09/19 14:59 60 15 25 08/09/19 12:28 61 19 25 08/09/19 12:00 96.9 67 14 140/74 (96) 99 08/09/19 12:00 25 08/09/19 12:00 64 08/09/19 12:00 Mechanical Ventilator 08/09/19 10:00 69 141/70 08/09/19 09:59 141/70 08/09/19 09:58 141/70 08/09/19 08:00 Mechanical Ventilator 08/09/19 08:00 69 08/09/19 08:00 25 08/09/19 07:51 96.6 68 16 141/70 (93) 99 08/09/19 07:40 68 18 25 08/09/19 04:00 Mechanical Ventilator 08/09/19 04:00 96.0 71 18 156/64 (94) 100 08/09/19 04:00 25 08/09/19 03:26 67 08/09/19 03:09 68 16 25 08/09/19 01:30 97.2 70 18 153/60 (91) 98 08/09/19 01:20 25 08/09/19 01:06 78 08/09/19 01:00 Mechanical Ventilator 08/09/19 01:00 Mechanical Ventilator 08/09/19 00:50 98.2 65 12 119/42 99 Mechanical Ventilator 5.0 25 08/08/19 23:08 71 16 25 08/08/19 20:50 67 22 25 08/08/19 20:25 98.2 73 17 119/42 99 Mechanical Ventilator 5.0 08/08/19 18:59 98.2 61 20 137/62 (87) 100 Mechanical Ventilator 5.0 Intake and Output 08/08/19 08/09/19 19:00 07:00 Intake Total 905 ml Output Total 400 ml Balance 505 ml Intake Oral 0 ml IV Total 905 ml Output Urine Total 400 ml # Bowel Movements 3 Laboratory Tests Test 08/08/19 19:35 08/08/19 19:50 08/08/19 20:10 08/09/19 06:35 Urine Color Pale yellow Urine Appearance Clear Urine pH 5 (4.5-8.0) Urine Specific [place] 1.010 (1.005-1.035) Urine Protein 2+ (NEGATIVE) H Urine Glucose (UA) Negative (NEGATIVE) Urine Ketones Negative (NEGATIVE) Urine Blood Negative (NEGATIVE) Urine Nitrite Negative (NEGATIVE) Urine Bilirubin Negative (NEGATIVE) Urine Urobilinogen Normal MG/DL (0.0-1.0) Urine Leukocyte Esterase 2+ (NEGATIVE) H Urine RBC 0-2 /HPF (0 - 0) H Urine WBC 10-15 /HPF (0 - 0) H Urine Squamous Epithelial Cells None /LPF (NONE/OCC) Urine Bacteria Many /HPF (NONE) H Urine Yeast Moderate /HPF (NONE) H White Blood Count 32.8 K/UL (4.8-10.8) *H 31.2 K/UL (4.8-10.8) *H Red Blood Count 2.67 M/UL (4.70-6.10) L 2.84 M/UL (4.70-6.10) L Hemoglobin 6.5 G/DL (14.2-18.0) *L 6.9 G/DL (14.2-18.0) *L Hematocrit 21.8 % (42.0-52.0) L 23.7 % (42.0-52.0) L Mean Corpuscular Volume 82 FL (80-99) 83 FL (80-99) Mean Corpuscular Hemoglobin 24.5 PG (27.0-31.0) L 24.4 PG (27.0-31.0) L Mean Corpuscular Hemoglobin Concent 30.0 G/DL (32.0-36.0) L 29.2 G/DL (32.0-36.0) L Red Cell Distribution Width 18.0 % (11.6-14.8) H 17.2 % (11.6-14.8) H Platelet Count 513 K/UL (150-450) H 530 K/UL (150-450) H Mean Platelet Volume 5.3 FL (6.5-10.1) L 5.7 FL (6.5-10.1) L Neutrophils (%) (Auto) % (45.0-75.0) % (45.0-75.0) Lymphocytes (%) (Auto) % (20.0-45.0) % (20.0-45.0) Monocytes (%) (Auto) % (1.0-10.0) % (1.0-10.0) Eosinophils (%) (Auto) % (0.0-3.0) % (0.0-3.0) Basophils (%) (Auto) % (0.0-2.0) % (0.0-2.0) Differential Total Cells Counted 100 100 Neutrophils % (Manual) 87 % (45-75) H 88 % (45-75) H Lymphocytes % (Manual) 8 % (20-45) L 8 % (20-45) L Monocytes % (Manual) 2 % (1-10) 2 % (1-10) Eosinophils % (Manual) 1 % (0-3) 2 % (0-3) Basophils % (Manual) 0 % (0-2) 0 % (0-2) Metamyelocytes % 2 % (0-0) H Band Neutrophils 0 % (0-8) 0 % (0-8) Platelet Estimate Increased H Adequate Platelet Morphology Normal Normal Polychromasia 1+ Hypochromasia 2+ 4+ Anisocytosis 2+ 2+ Prothrombin Time 13.0 SEC (9.30-11.50) H Prothromb Time International Ratio 1.2 (0.9-1.1) H Activated Partial Thromboplast Time 33 SEC (23-33) D-Dimer 2.22 mg/L FEU (0.00-0.49) H Sodium Level 121 MMOL/L (136-145) L 121 MMOL/L (136-145) L Potassium Level 4.5 MMOL/L (3.5-5.1) 4.9 MMOL/L (3.5-5.1) Chloride Level 90 MMOL/L (98-107) L 91 MMOL/L (98-107) L Carbon Dioxide Level 22 MMOL/L (21-32) 20 MMOL/L (21-32) L Anion Gap 9 mmol/L (5-15) 10 mmol/L (5-15) Blood Urea Nitrogen 146 mg/dL (7-18) H 144 mg/dL (7-18) H Creatinine 3.5 MG/DL (0.55-1.30) H 3.5 MG/DL (0.55-1.30) H Estimat Glomerular Filtration Rate 17.0 mL/min (>60) 17.0 mL/min (>60) Glucose Level 156 MG/DL (74-106) H 172 MG/DL (74-106) H Lactic Acid Level 0.70 mmol/L (0.4-2.0) Calcium Level 8.6 MG/DL (8.5-10.1) 8.9 MG/DL (8.5-10.1) Magnesium Level 4.3 MG/DL (1.8-2.4) H Ferritin 356 NG/ML (8-388) Total Bilirubin 0.3 MG/DL (0.2-1.0) Aspartate Amino Transf (AST/SGOT) 23 U/L (15-37) Alanine Aminotransferase (ALT/SGPT) 22 U/L (12-78) Alkaline Phosphatase 239 U/L (46-116) H Lactate Dehydrogenase 148 U/L (81-234) Total Creatine Kinase 29 U/L (26-308) Troponin I 0.004 ng/mL (0.000-0.056) C-Reactive Protein, Quantitative 18.1 mg/dL (0.00-0.90) H Pro-B-Type Natriuretic Peptide 7513 pg/mL (0-125) H Total Protein 7.1 G/DL (6.4-8.2) Albumin 1.7 G/DL (3.4-5.0) L Globulin 5.4 g/dL Albumin/Globulin Ratio 0.3 (1.0-2.7) L Lipase 176 U/L (73-393) Thyroid Stimulating Hormone (TSH) 3.171 uiU/mL (0.358-3.740) POC Whole Blood Glucose 146 MG/DL (74-106) H Microbiology Date/Time Source Procedure Growth Status 08/08/19 19:50 Blood Blood Culture - Preliminary Resulted 08/08/19 19:35 Urine,Clean Catch Urine Culture - Preliminary NO GROWTH Resulted Height (Feet): 5 Height (Inches): 7.00 Weight (Pounds): 165 Medications Current Medications Medications (Trade) Dose Ordered Sig/Leonel Route PRN Reason Start Time Stop Time Status Last Admin Dose Admin Acetaminophen (Tylenol) 650 mg Q4H PRN GT Mild Pain / fever 08/09/19 05:30 09/08/19 05:29 Al Hydroxide/Mg Hydroxide (Mylanta) 30 ml FOUR TIMES A DAY PRN GT constipation 08/09/19 06:00 09/08/19 05:29 Ascorbic Acid (Vitamin C) 500 mg DAILY GT 08/09/19 09:00 09/08/19 08:59 08/09/19 09:59 Atorvastatin Calcium (Lipitor) 40 mg BEDTIME GT 08/09/19 21:00 11/07/19 20:59 Benazepril HCl (Lotensin) 20 mg DAILY GT 08/09/19 09:00 09/08/19 08:59 08/09/19 09:59 Chlorhexidine Gluconate (Felipa-Hex 2%) 1 applic DAILY@1999 TOPIC 08/09/19 20:00 11/07/19 19:59 Dextrose (Dextrose 50%) 25 ml Q30M PRN IV Hypoglycemia 08/09/19 07:30 11/07/19 07:29 Dextrose (Dextrose 50%) 50 ml Q30M PRN IV Hypoglycemia 08/09/19 07:30 11/07/19 07:29 Epoetin Andreas (Epoetin Andreas-EPBX(NON ESRD)) 8,000 unit WED-WED-WED SUBQ 08/09/19 21:00 11/07/19 20:59 Heparin Sodium/ Sodium Chloride (Heparin 1000 units/500ml Premix) 1,000 unit ONCE IV 08/09/19 08:00 08/10/19 00:01 Insulin Aspart (NovoLOG) BEFORE MEALS AND HS SUBQ 08/09/19 11:30 11/07/19 11:29 08/09/19 11:45 Lansoprazole (Prevacid) 30 mg DAILY GT 08/09/19 09:00 09/08/19 08:59 08/09/19 10:00 Loperamide HCl (Imodium) 2 mg Q4H PRN GT Diarrhea 08/09/19 08:00 09/08/19 07:59 Metoprolol Tartrate (Lopressor) 200 mg Q12HR GT 08/09/19 09:00 11/07/19 08:59 08/09/19 10:00 Minoxidil (Loniten) 5 mg DAILY GT 08/09/19 09:00 11/07/19 08:59 08/09/19 09:58 Multivitamins (Multivitamins W/ Minerals 15ml Liquid) 15 ml DAILY GT 08/09/19 09:00 09/08/19 08:59 08/09/19 10:03 Piperacillin Sod/ Tazobactam Sod 3.375 gm/Sodium Chloride 110 ml @ 27.5 mls/hr Q12H IVPB 08/09/19 06:00 08/16/19 05:59 08/09/19 09:58 Potassium Chloride (K-Dur) 20 meq DAILY GT 08/09/19 09:00 11/07/19 08:59 08/09/19 10:02 Sodium Chloride 250 ml @ 30 mls/hr ONCE ONCE IV 08/09/19 12:00 08/09/19 20:19 08/09/19 14:35 Sodium Chloride 1,000 ml @ 50 mls/hr Q20H IV 08/10/19 06:00 09/08/19 05:59 Vitamin B Complex/ Vit C/Folic Acid (Nephrovite) 1 tab DAILY GT 08/09/19 09:00 09/08/19 08:59 08/09/19 09:58 Vitamin D (Vitamin D) 1,000 intlu DAILY GT 08/09/19 09:00 09/08/19 08:59 08/09/19 09:59 Assessment/Plan Problem List: (1) Anemia ICD Codes: D64.9 - Anemia, unspecified SNOMED: 189253202 Qualifiers: Qualified Codes: D64.9 - Anemia, unspecified (2) Hyponatremia ICD Codes: E87.1 - Hypo-osmolality and hyponatremia SNOMED: 64602855 (3) Leukocytosis Assessment & Plan: Tracheostomy, left chest pacemaker are again demonstrated. There is bilateral interstitial and airspace disease and bilateral pleural fluid again demonstrated. This appears more severe than on the prior study. Bilateral interstitial and airspace infiltrates versus edema. Bilateral pleural effusions Leukocytosis, anemia, tachycardia, abnormal labs. Wound evaluated and likely etiology of patient's sepsis. Leukocytosis etiology work-up antibiotics per infectious disease Appreciate nephrology input transfuse with dialysis We will follow with recommendations thank you allowing participation's care ICD Codes: D72.829 - Elevated white blood cell count, unspecified SNOMED: 633641615, 105788934 Qualifiers: Qualified Codes: D72.828 - Other elevated white blood cell count (4) Ventilator dependent ICD Codes: Z99.11 - Dependence on respirator [ventilator] status SNOMED: 186202250 (5) Right lower lobe pneumonia ICD Codes: J18.9 - Pneumonia, unspecified organism SNOMED: 346047187 Qualifiers: Qualified Codes: J18.9 - Pneumonia, unspecified organism (6) Hypokalemia ICD Codes: E87.6 - Hypokalemia SNOMED: 74168934 (7) Hyperkalemia ICD Codes: E87.5 - Hyperkalemia SNOMED: 26737523 (8) Anasarca ICD Codes: R60.1 - Generalized edema SNOMED: 459696925, 491403133 (9) Decubitus skin ulcer Assessment & Plan: pt presented on admission with generalized edemae.Skin assessed under tracheostomy and no areas of concerns noted. GT Insertion is marginally erythematous with small amt slough at stoma. Unstageable Pressure Injury R elbow. Base of wound is 100% yellow slough, Borders are erythematous. Wound oozing small amt haemopurulent exudate.Darker skin tone without elevation in skin temp or erythema periwound. Pt's penis and scrotum are grossly edematous and enlarged and weeping serous exudate from numerous sites both from penis and scrotum. Two small open wounds noted at base of at base of shaft of penis ,and contreras aspect of scrotum. Both wounds oozing large amt sanguineous and serosanguineous exudate. Multiple open wounds with Biofilm at base of each wounds noted to contreras/lateral,inferior and posterior aspects of scrotum. These wounds noted to be oozing moderate amts of serosanguineous exudate. Hypertrophic scar with scattered areas of hyperpigmentation noted to Sacrum. DTPI noted to L Buttocks (L)7cm x (W)9cm. Base of wound is purple and indurated.Darker skin tone without erythema, induration or fluctuance R and L ischial tuberosities. Both heels are boggy with non-blanchable erythema. Tx.Plan: Cleanse wound R elbow with Saline. Apply TheraHoney, Apply Moisture Barrier Paste periwound. Cover with Optifoam drsg.Change Daily and prn. Wash GT site with soap and water.Pat dry. Apply Zinc Oxide Paste to GT site Daily. Leave Open to Air. Apply Zinc Oxide Paste to entire Scrotum, Place ABD pads to R and L lateral, and posterior aspects of scrotum TWICE daily. Apply Cavilon Skin Barrier to malleoli and both Heels. Cover each site with Optifoam drsgs. Change every 7 days and prn. Reposition at least every 2hours or as tolerated. Off-load heels with Pillows. APM/BECCA Mattress overlay. ICD Codes: L89.90 - Pressure ulcer of unspecified site, unspecified stage SNOMED: 987981054 Qualifiers: Qualified Codes: L89.899 - Pressure ulcer of other site, unspecified stage (10) Malnutrition Assessment & Plan: DAILY ESTIMATED NEEDS: Needs based on Renal, critical care, wound/ 61kg 22-28 kcals/kg 2342-0637 total kcals 1-1.25 (increase w/ renal improvement) g protein/kg 61-76 g total protein 20-25 mL/kg 3689-1817 total fluid mLs NUTRITION DIAGNOSIS: * Swallowing difficulty R/T respiratory failure, dysphagia as evidenced by trach/vent dep, PEG dep * Increased kcal/prot needs R/T wound healing as evidenced by admitted w/ multiple pressure injuries per photos, pending eval. CURRENT TF:Nepro @ 45ml/hr x 24 hrs ENTERAL NUTRITION RECOMMENDATIONS: NEPRO to 45ml/hr x 20 hrs to provide 900ml, 1620kcal, 73g prot, 654ml free water * Maintain current TF * HOB over 30 degrees/ water flush per MD ADDITIONAL RECOMMENDATIONS: * Per SNF: HT=63" GL=180 lbs (Vs EMR wt of 165lbs) -> obtain re-calibrated bedscale wt * Wound healing: add Nephrovite x 1 + Vit C 250mg QD add Garo 1pkt BID via GT * Monitor renal fxn and lytes, check phos level ICD Codes: E46 - Unspecified protein-calorie malnutrition SNOMED: 27938566 (11) Uremia ICD Codes: N19 - Unspecified kidney failure SNOMED: 91761331 (12) CKD (chronic kidney disease) stage 5, GFR less than 15 ml/min ICD Codes: N18.5 - Chronic kidney disease, stage 5 SNOMED: 574378437 Jonathan Urias Aug 09, 2019 16:43
--- NOTE | 2019-08-09 17:00 | NUR ---
NURSE NOTES: 24 hrs Urine collection started,Avalos cath draining yellow urine.
--- NOTE | 2019-08-09 19:00 | NUR ---
NURSE NOTES: Received patient and report from TAMICA Miranda. Patient is observed resting in bed and remains obtunded. No pain noted upon assessment. Pt is currently trach to vent; vent settings as follows: AC 15 TV 450 FiO2 25 PEEP 5 with an O2 saturation of 97% noted. Pt appears to be tolerating settings well with no s/sx of acute distress noted. Bilateral lower lobe breath sounds noted to be diminished upon auscultation. Pt noted to be VPaced on tele monitor with a current HR of 60 and no s/sx of acute distress noted. Avalos catheter noted which remains intact, patent and draining urine to gravity. Rectal tube noted which remains intact with a small amount of brown, liquid stool noted in collection bag. R Wrist 24g and Right upper arm 20g IV catheters noted which remains asymptomatic, intact and patent with hypertonic saline infusing at 30mL/hr with completed blood transfusion hung. Disconnected blood transfusion, obtained vitals and flushed IV catheter. VS remains stable. GT noted which remains intact and patent with 30mL residual noted. GT feeding infusing as prescribed. Bowel sounds noted in all four quadrants, abdomen remains large, round, firm, distended and nontender. Diagnostics reviewed at bedside. Skin alterations noted. Pt repositioned for comfort and safety. Fall, Aspiration and Skin precautions observed. Pt remains resting in bed; Bed remains in the lowest position with the safety wheels engaged, call light within reach, side rails up x3 and bed alarm activated. Will continue plan of care. Will continue to monitor.
--- NOTE | 2019-08-09 19:25 | NUR ---
HAND-OFF: Report given to Carolyn Hooks RN,with on going Blood transfusion,ist unit.
--- NOTE | 2019-08-09 19:30 | NUR ---
NURSE NOTES: Low air loss mattress overlay ordered from central supply
[2019-08-09] MEDS: Dyna-Hex 2% Top Sol 2oz TOPIC SCH (19:53)
[2019-08-09 20:00] VITALS: BP 143/78
--- NOTE | 2019-08-09 20:00 | NUR ---
NURSE NOTES: Pt noted to have Zosyn scheduled for 20:00. Hypertonic saline already infusing though 1/[address] IV catheter[address] Attempt[address] to place additional IV catheter unsuccessfully. Second RN unsuccessful as well. Utilized Clinical Pharmacology in order to see if Zosyn and Hypertonic Saline were compatible to Y-Site in order to administer next unit of blood as to not delay care. Unable to find hypertonic saline as an option to check IV compatibility in application, conferred with charge nurse who referred me to pharmacy. Called pharmacy and spoke with Marta in order to check safety of y-site administration. Pharmacist stated, "probably not recommended" after referring me back to clinical pharmacology. Blood product administration held for patient safety; unable to confirm IV compatibility at this time. Will administer blood products as soon as feasible and safe for patient.
[2019-08-09] MEDS ORDERED: Epoetin Alfa-EPBX (NON ESRD) 3000 units/ml vial SUBQ SCH (21:00)
[2019-08-09] MEDS: Epoetin Alfa-EPBX (NON ESRD)4000 units/ml vial SUBQ SCH (21:02)
[2019-08-09] MEDS: Atorvastatin 20mg tab GT SCH (21:03)
--- NOTE | 2019-08-09 21:54 | General Progress Note ---
Assessment/Plan Assessment/Plan: GI CONSULT Assessment - Acute and chronic anemia - Black stools, but patient on po Iron - Azotemia - Sepsis - Anasarca - resp failure, trach - dysphagia, GT - encephalopathy, contracted Recommendations - Check stool OB - Check stool C Diff - Check Iron panel - transfuse PRN - PPI - supportive care Subjective Allergies: Coded Allergies: No Known Allergies (Unverified , 06/10/19) Objective Last 24 Hour Vital Signs Date Time Temp Pulse Resp B/P (MAP) Pulse Ox O2 Delivery O2 Flow Rate FiO2 08/09/19 21:03 61 143/78 08/09/19 19:30 60 16 24 08/09/19 16:00 60 08/09/19 16:00 96.1 60 20 158/71 (100) 99 08/09/19 16:00 Mechanical Ventilator 08/09/19 16:00 25 08/09/19 14:59 60 15 25 08/09/19 12:28 61 19 25 08/09/19 12:00 96.9 67 14 140/74 (96) 99 08/09/19 12:00 25 08/09/19 12:00 64 08/09/19 12:00 Mechanical Ventilator 08/09/19 10:00 69 141/70 08/09/19 09:59 141/70 08/09/19 09:58 141/70 08/09/19 08:00 Mechanical Ventilator 08/09/19 08:00 69 08/09/19 08:00 25 08/09/19 07:51 96.6 68 16 141/70 (93) 99 08/09/19 07:40 68 18 25 08/09/19 04:00 Mechanical Ventilator 08/09/19 04:00 96.0 71 18 156/64 (94) 100 08/09/19 04:00 25 08/09/19 03:26 67 08/09/19 03:09 68 16 25 08/09/19 01:30 97.2 70 18 153/60 (91) 98 08/09/19 01:20 25 08/09/19 01:06 78 08/09/19 01:00 Mechanical Ventilator 08/09/19 01:00 Mechanical Ventilator 08/09/19 00:50 98.2 65 12 119/42 99 Mechanical Ventilator 5.0 25 08/08/19 23:08 71 16 25 Intake and Output 08/08/19 08/09/19 19:00 07:00 Intake Total 905 ml Output Total 400 ml Balance 505 ml Intake Oral 0 ml IV Total 905 ml Output Urine Total 400 ml # Bowel Movements 3 Laboratory Tests 08/09/19 06:35: White Blood Count 31.2*H, Red Blood Count 2.84L, Hemoglobin 6.9*L, Hematocrit 23.7L, Mean Corpuscular Volume 83, Mean Corpuscular Hemoglobin 24.4L, Mean Corpuscular Hemoglobin Concent 29.2L, Red Cell Distribution Width 17.2H, Platelet Count 530H, Mean Platelet Volume 5.7L, Neutrophils (%) (Auto) , Lymphocytes (%) (Auto) , Monocytes (%) (Auto) , Eosinophils (%) (Auto) , Basophils (%) (Auto) , Differential Total Cells Counted 100, Neutrophils % ( Manual) 88H, Lymphocytes % (Manual) 8L, Monocytes % (Manual) 2, Eosinophils % ( Manual) 2, Basophils % (Manual) 0, Band Neutrophils 0, Platelet Estimate Adequate, Platelet Morphology Normal, Hypochromasia 4+, Anisocytosis 2+, Sodium Level 121L, Potassium Level 4.9, Chloride Level 91L, Carbon Dioxide Level 20L, Anion Gap 10, Blood Urea Nitrogen 144H, Creatinine 3.5H, Estimat Glomerular Filtration Rate 17.0, Glucose Level 172H, Calcium Level 8.9 08/09/19 17:05: POC Whole Blood Glucose [Pending] Height (Feet): 5 Height (Inches): 7.00 Weight (Pounds): 165 Ronny Mustafa MD Aug 09, 2019 21:53
--- NOTE | 2019-08-09 22:00 | NUR ---
NURSE NOTES: Bedside assessment performed, assessed pt for pain using FLACC scale with a score of 0 noted. Pt provided with a partial bed bath, oral care and suctioning for excess secretions. Pt tolerated care well. Pt repositioned for comfort and safety. VS noted to be stable at this time. Scheduled Dynahex held due to indication being central line placement. Central line to be placed 08/10/2019, no clinical indication at this time. Hypertonic saline administration to be completed within the hour, will carry out orders to administer packed RBC unit. Fall, Aspiration and Skin precautions observed. Pt remains resting in bed; Bed remains in the lowest position with the safety wheels engaged, call light within reach, side rails up x3 and bed alarm activated. Will continue plan of care. Will continue to monitor.
--- NOTE | 2019-08-09 23:50 | NUR ---
NURSE NOTES: Bedside assessment performed and VS obtained. VS noted to be stable. 1 unit of packed RBCs obtained from blood bank to be administered. Patient identification and blood product confirmation completed with second RN, Kath Cameron. Blood product transfusion initiated per order and protocol.
[2019-08-10] VITALS: BP 128/69
--- NOTE | 2019-08-10 00:05 | NUR ---
NURSE NOTES: Bedside assessment performed and VS obtained. VS noted to be stable. Packed RBC unit transfusing per order. No s/sx of adverse reaction noted at this time. Will continue to monitor.
--- NOTE | 2019-08-10 01:00 | NUR ---
NURSE NOTES: Bedside assessment performed, assessed pt for pain using FLACC scale with a score of 0 noted. Pt provided with a partial bed bath, oral care and suctioning for excess secretions. Pt tolerated care well. Pt repositioned for comfort and safety. VS noted to be stable at this time. Packed RBC continue to infuse without incident as ordered. VS monitored per protocol. Fall, Aspiration and Skin precautions observed. Pt remains resting in bed; Bed remains in the lowest position with the safety wheels engaged, call light within reach, side rails up x3 and bed alarm activated. Will continue plan of care. Will continue to monitor.
--- NOTE | 2019-08-10 02:17 | NUR ---
NURSE NOTES: Bedside assessment performed and VS obtained. VS noted to be stable. Blood transfusion complete. No s/sx of adverse reaction noted at this time. Will continue to monitor. Addendum: 08/10/19 at 0428 by JIE LEBLANC RN Will perform peripheral lab draw for CBC in 2 hours per protocol to evaluate H&H to ensure third unit is indicated per protocol and to ensure therapeutic response to transfusions
[2019-08-10 04:00] VITALS: BP 141/74
--- NOTE | 2019-08-10 04:28 | NUR ---
NURSE NOTES: Bedside assessment performed, assessed pt for pain using FLACC scale with a score of 0 noted. Pt provided with a CHG bed bath, oral care and suctioning for excess secretions. Pt tolerated care well. Pt repositioned for comfort and safety. VS noted to be stable at this time. Timed CBC drawn at bedside in order to evaluate response to blood transfusion. Sample sent to laboratory for analysis, will await results and notify physicians appropriately. Fall, Aspiration and Skin precautions observed. Pt remains resting in bed; Bed remains in the lowest position with the safety wheels engaged, call light within reach, side rails up x3 and bed alarm activated. Will continue plan of care. Will continue to monitor.
[2019-08-10 04:33] LABS: HEMATOCRIT 32.7 % (42.0-52.0); HEMOGLOBIN 10.3 G/DL (14.2-18.0); MEAN CORPUSCULAR VOLUME 88 FL (80-99); PLATELET COUNT 523 K/UL (150-450); RED BLOOD COUNT 3.74 M/UL (4.70-6.10)
[2019-08-10 04:50] LABS: ANION GAP 11 mmol/L (5-15); BLOOD UREA NITROGEN 145 mg/dL (7-18); CALCIUM 8.7 MG/DL (8.5-10.1); CARBON DIOXIDE 19 MMOL/L (21-32); CHLORIDE 95 MMOL/L (98-107); CREATININE 3.5 MG/DL (0.55-1.30); POTASSIUM 5.3 MMOL/L (3.5-5.1); SODIUM 125 MMOL/L (136-145)
[2019-08-10 04:52] LABS: WHITE BLOOD COUNT 25.1 K/UL (4.8-10.8)
--- NOTE | 2019-08-10 05:05 | NUR ---
NURSE NOTES: Blood culture positive for yeast Notified by Reji. Message left to noity Dr Madrid notified. Addendum: 08/10/19 at 0630 by JIE LEBLANC RN Notify Dr Madrid
[2019-08-10] MEDS: NovoLOG Insulin Flexpen SUBQ SCH ×4 (05:30→23:22)
--- NOTE | 2019-08-10 06:11 | NUR ---
NURSE NOTES: Pt noted to have a temperature of 96.7F, warming measures initiated. Will continue to monitor.
--- NOTE | 2019-08-10 06:39 | NUR ---
NURSE NOTES: Left message regarding AM lab values; Na 125, K 5.3 and H&H regarding additional unit of blood pending, therapeutic result noted. Will await a call back. Will continue to monitor.
--- NOTE | 2019-08-10 07:18 | NUR ---
NURSE NOTES: Received report from TAMICA Leon. Patient in bed resting, no active s/s cardiac, respiratory distress noticed at this time. Patient Obtundent, Trach to vent Portex 8 AC 15 TV 450 Fio2 25% PEEP 5. GT running nephro as prescribed rate 45ml/h, patent, intact. IV on right upper arm 20G, right wrist 24G, asymptomatic, patent, intact, IVF NS running @ 50ml/h. Endorsed 24h urine collection from 08/08 1700 to 08/09 1700. Avalos Catheter draining well to gravity, patent, intact. Endorsed 2unit of PRBC administered, Hgb at this time 10.3 and MD made aware. Bed in lowest position and locked, side rails upx3, call light within reach, bed alarm on. Will continue to monitor. Addendum: 08/10/19 at 0728 by NINA LOONEY RN GT nephro @ 45ml/h on hold at this time per order [id number].
--- NOTE | 2019-08-10 07:30 | Consultation ---
DATE OF CONSULTATION: 08/09/2019 GASTROENTEROLOGY CONSULTATION CONSULTING PHYSICIAN: Ronny Mustafa MD CHIEF COMPLAINT: I was asked to see this patient by Dr. Kain Ramirez for evaluation of anemia and dark stools. HISTORY OF PRESENT ILLNESS: The patient is a debilitated 79-year-old man with chronic respiratory failure requiring tracheostomy and chronic ventilation, who was brought in to the hospital due to sepsis and abnormal laboratory tests. Patient was found to have profound anemia on admission and has been ordered blood transfusion. In addition, the stools were black, but he is also on oral iron therapy through the gastrostomy tube. Patient himself is comatose, unable to provide any history. Most of the information was only available from his chart. PAST MEDICAL HISTORY: History of respiratory failure, chronic renal failure, hypertension, anemia, hypertensive heart disease, contracture deformities, sepsis, pressure ulcers, pneumonia, status post tracheostomy, status post gastrostomy, ventilatory dependence, bedbound state. MEDICATIONS: See the chart list for details. ALLERGIES: Noted. FAMILY HISTORY: Unavailable. SOCIAL HISTORY: Patient resides in a long-term and requires around the clock care. REVIEW OF SYSTEMS: Otherwise negative. PHYSICAL EXAMINATION: GENERAL: Debilitated man, seen in his room, who is nonresponsive on the ventilator. HEENT: Normocephalic. NECK: Showed a tracheostomy catheter. CHEST: Coarse breath sounds. CARDIAC: Revealed a regular rate. ABDOMEN: Slightly distended, soft. There is anasarca throughout the abdomen, torso, and extremities. EXTREMITIES: Revealed severe diffuse contractures as well as anasarca and edema. LABORATORY DATA: Noted. ASSESSMENT: This patient presents with severe anemia, which is both acute and chronic. Review of his laboratory tests from the previous admission showed that he was also significantly anemic on the previous admission, although he is somewhat worse now. He also has of azotemia, which is worse and this may be contributing to his anemia. He is on oral iron therapy, which can explain the black stools. I will check his stools for occult blood and follow blood counts conservatively. He is septic with high white count and therefore he should be checked for various infectious pathologies including Clostridium difficile. He is a very poor candidate for endoscopic evaluation. Therefore, I would favor more conservative approach. RECOMMENDATIONS: Per above discussion and per orders written in chart. I will begin the patient on proton pump inhibitor with serial CBCs, transfusions. Check stool occult blood as well as check stool Clostridium difficile. patient has been treated by other consultants. Thank you for asking me to participate in the care of this patient. Ronny Mustafa M.D. DR: BHUPENDRA JOB#: [id number] CC:
[2019-08-10 08:00] VITALS: BP 120/61
[2019-08-10] MEDS: Piperacillin/Tazobactam 3.375 GM in NS 110 ML IVPB SCH ×2 (08:09→19:32)
[2019-08-10] MEDS: Multivitamins W/Minerals 15 ML UDC GT SCH (08:09)
[2019-08-10] MEDS: Metoprolol Tartrate 100mg tab GT SCH ×2 (08:11→21:38)
[2019-08-10] MEDS: Nephrovite tab (Rena-Vite) GT SCH (08:11)
[2019-08-10] MEDS: Ascorbic Acid 500mg tab GT SCH (08:11)
[2019-08-10] MEDS: Minoxidil 2.5mg tab GT SCH (08:12)
[2019-08-10] MEDS: Benazepril 10mg tab GT SCH (08:12)
[2019-08-10] MEDS: Vitamin D 1000 IU Tab GT SCH (08:12)
--- NOTE | 2019-08-10 08:43 | General Progress Note ---
Assessment/Plan Assessment/Plan: IMPRESSION: 1. Profound anemia. 2. Possible GI bleed. 3. Leukocytosis. 4. Probable sepsis. 5. Acute on chronic renal failure. 6. Hyponatremia. 7. Severe protein-calorie malnutrition. 8. Significantly elevated C-reactive protein concerning for infectious etiology. 9. Tracheostomy, G-tube. 10. Ventilator dependence. PLAN care noted on vent monitor sodium monitor renal function iv antibiotics check cultures care noted. impression, plan, and exam edited and reviewed in detail care discussed with RN Subjective ROS Limited/Unobtainable: Yes Allergies: Coded Allergies: No Known Allergies (Unverified , 06/10/19) Objective Last 24 Hour Vital Signs Date Time Temp Pulse Resp B/P (MAP) Pulse Ox O2 Delivery O2 Flow Rate FiO2 08/10/19 08:12 120/61 08/10/19 08:12 120/61 08/10/19 08:11 76 120/61 08/10/19 08:00 97.7 76 17 120/61 (80) 98 08/10/19 08:00 24 08/10/19 07:09 64 17 24 08/10/19 04:00 60 08/10/19 04:00 25 08/10/19 04:00 Mechanical Ventilator 08/10/19 04:00 97.0 60 16 141/74 (96) 98 08/10/19 03:30 62 18 24 08/10/19 00:00 97.1 60 16 128/69 (88) 100 08/10/19 00:00 25 08/10/19 00:00 Mechanical Ventilator 08/09/19 23:34 60 08/09/19 23:30 60 18 24 08/09/19 21:03 61 143/78 08/09/19 20:00 60 08/09/19 20:00 25 08/09/19 20:00 Mechanical Ventilator 08/09/19 20:00 Mechanical Ventilator 08/09/19 20:00 96.1 60 18 143/78 (99) 98 08/09/19 19:30 60 16 24 08/09/19 16:00 60 08/09/19 16:00 96.1 60 20 158/71 (100) 99 08/09/19 16:00 Mechanical Ventilator 08/09/19 16:00 25 08/09/19 14:59 60 15 25 08/09/19 12:28 61 19 25 7/1/20 12:00 96.9 67 14 140/74 (96) 99 08/09/19 12:00 25 08/09/19 12:00 64 08/09/19 12:00 Mechanical Ventilator 08/09/19 10:00 69 141/70 08/09/19 09:59 141/70 08/09/19 09:58 141/70 Intake and Output 08/09/19 08/10/19 19:00 07:00 Intake Total 1452.5 ml 1358.333 ml Output Total 400 ml 400 ml Balance 1052.5 ml 958.333 ml Free Water 300 ml 120 ml IV Total 382.5 ml 273.333 ml Tube Feeding 270 ml 465 ml Blood Product 500 ml Other 500 ml Output Urine Total 400 ml 400 ml Laboratory Tests 08/09/19 17:05: POC Whole Blood Glucose [Pending] 08/10/19 04:05: White Blood Count 25.1*H, Red Blood Count 3.74L, Hemoglobin 10.3#L, Hematocrit 32.7#L, Mean Corpuscular Volume 88, Mean Corpuscular Hemoglobin 27.6, Mean Corpuscular Hemoglobin Concent 31.5L, Red Cell Distribution Width 17.0H, Platelet Count 523H, Mean Platelet Volume 5.8L, Neutrophils (%) (Auto) , Lymphocytes (%) (Auto) , Monocytes (%) (Auto) , Eosinophils (%) (Auto) , Basophils (%) (Auto) , Neutrophils % (Manual) [Pending], Lymphocytes % (Manual) [Pending], Platelet Estimate [Pending], Platelet Morphology [Pending], Sodium Level 125L, Potassium Level 5.3H, Chloride Level 95L, Carbon Dioxide Level 19L, Anion Gap 11, Blood Urea Nitrogen 145H, Creatinine 3.5H, Estimat Glomerular Filtration Rate 17.0, Glucose Level 193H, Calcium Level 8.7 Height (Feet): 5 Height (Inches): 7.00 Weight (Pounds): 167 Objective GENERAL: Ill-appearing male, chronically debilitated. HEENT: Tracheostomy in midline. Questionable fullness in the submandibular region. LUNGS: Coarse breath sounds. CARDIAC: S1, S2. Regular rate and rhythm. ABDOMEN: Soft. G-tube. EXTREMITIES: With noted edema. NEUROLOGICAL: Poorly responsive, weak diffusely. Kain Ramirez MD Aug 10, 2019 08:43
--- NOTE | 2019-08-10 08:57 | Surgery Progress Note ---
Surgery Progress Note Subjective Additional Comments wbc trending down labs reviewed k noted h/h improved prbc Objective Last 24 Hour Vital Signs Date Time Temp Pulse Resp B/P (MAP) Pulse Ox O2 Delivery O2 Flow Rate FiO2 08/10/19 08:12 120/61 08/10/19 08:12 120/61 08/10/19 08:11 76 120/61 08/10/19 08:00 97.7 76 17 120/61 (80) 98 08/10/19 08:00 24 08/10/19 07:09 64 17 24 08/10/19 04:00 60 08/10/19 04:00 25 08/10/19 04:00 Mechanical Ventilator 08/10/19 04:00 97.0 60 16 141/74 (96) 98 08/10/19 03:30 62 18 24 08/10/19 00:00 97.1 60 16 128/69 (88) 100 08/10/19 00:00 25 08/10/19 00:00 Mechanical Ventilator 08/09/19 23:34 60 08/09/19 23:30 60 18 24 08/09/19 21:03 61 143/78 08/09/19 20:00 60 08/09/19 20:00 25 08/09/19 20:00 Mechanical Ventilator 08/09/19 20:00 Mechanical Ventilator 08/09/19 20:00 96.1 60 18 143/78 (99) 98 08/09/19 19:30 60 16 24 08/09/19 16:00 60 08/09/19 16:00 96.1 60 20 158/71 (100) 99 08/09/19 16:00 Mechanical Ventilator 08/09/19 16:00 25 08/09/19 14:59 60 15 25 08/09/19 12:28 61 19 25 08/09/19 12:00 96.9 67 14 140/74 (96) 99 08/09/19 12:00 25 08/09/19 12:00 64 08/09/19 12:00 Mechanical Ventilator 08/09/19 10:00 69 141/70 08/09/19 09:59 141/70 08/09/19 09:58 141/70 I&O Intake and Output 08/09/19 08/10/19 19:00 07:00 Intake Total 1452.5 ml 1358.333 ml Output Total 400 ml 400 ml Balance 1052.5 ml 958.333 ml Free Water 300 ml 120 ml IV Total 382.5 ml 273.333 ml Tube Feeding 270 ml 465 ml Blood Product 500 ml Other 500 ml Output Urine Total 400 ml 400 ml Dressing: other Wound: other Drains: other Cardiovascular: RSR Respiratory: decreased breath sounds Abdomen: soft, non-tender, present bowel sounds Extremities: no cyanosis Laboratory Tests Test 08/09/19 17:05 08/10/19 04:05 POC Whole Blood Glucose Pending White Blood Count 25.1 K/UL (4.8-10.8) *H Red Blood Count 3.74 M/UL (4.70-6.10) L Hemoglobin 10.3 G/DL (14.2-18.0) #L Hematocrit 32.7 % (42.0-52.0) #L Mean Corpuscular Volume 88 FL (80-99) Mean Corpuscular Hemoglobin 27.6 PG (27.0-31.0) Mean Corpuscular Hemoglobin Concent 31.5 G/DL (32.0-36.0) L Red Cell Distribution Width 17.0 % (11.6-14.8) H Platelet Count 523 K/UL (150-450) H Mean Platelet Volume 5.8 FL (6.5-10.1) L Neutrophils (%) (Auto) % (45.0-75.0) Lymphocytes (%) (Auto) % (20.0-45.0) Monocytes (%) (Auto) % (1.0-10.0) Eosinophils (%) (Auto) % (0.0-3.0) Basophils (%) (Auto) % (0.0-2.0) Neutrophils % (Manual) Pending Lymphocytes % (Manual) Pending Platelet Estimate Pending Platelet Morphology Pending Sodium Level 125 MMOL/L (136-145) L Potassium Level 5.3 MMOL/L (3.5-5.1) H Chloride Level 95 MMOL/L (98-107) L Carbon Dioxide Level 19 MMOL/L (21-32) L Anion Gap 11 mmol/L (5-15) Blood Urea Nitrogen 145 mg/dL (7-18) H Creatinine 3.5 MG/DL (0.55-1.30) H Estimat Glomerular Filtration Rate 17.0 mL/min (>60) Glucose Level 193 MG/DL (74-106) H Calcium Level 8.7 MG/DL (8.5-10.1) Plan Problems: (1) Anemia (2) Hyponatremia (3) Leukocytosis Assessment & Plan: Tracheostomy, left chest pacemaker are again demonstrated. There is bilateral interstitial and airspace disease and bilateral pleural fluid again demonstrated. This appears more severe than on the prior study. Bilateral interstitial and airspace infiltrates versus edema. Bilateral pleural effusions Leukocytosis, anemia, tachycardia, abnormal labs. Wound evaluated and likely etiology of patient's sepsis. Leukocytosis etiology work-up antibiotics per infectious disease Appreciate nephrology input transfuse with dialysis We will follow with recommendations thank you allowing participation's care (4) Ventilator dependent (5) Right lower lobe pneumonia (6) Hypokalemia (7) Hyperkalemia (8) Anasarca (9) Decubitus skin ulcer Assessment & Plan: pt presented on admission with generalized edemae.Skin assessed under tracheostomy and no areas of concerns noted. GT Insertion is marginally erythematous with small amt slough at stoma. Unstageable Pressure Injury R elbow. Base of wound is 100% yellow slough, Borders are erythematous. Wound oozing small amt haemopurulent exudate.Darker skin tone without elevation in skin temp or erythema periwound. Pt's penis and scrotum are grossly edematous and enlarged and weeping serous exudate from numerous sites both from penis and scrotum. Two small open wounds noted at base of at base of shaft of penis ,and contreras aspect of scrotum. Both wounds oozing large amt sanguineous and serosanguineous exudate. Multiple open wounds with Biofilm at base of each wounds noted to contreras/lateral,inferior and posterior aspects of scrotum. These wounds noted to be oozing moderate amts of serosanguineous exudate. Hypertrophic scar with scattered areas of hyperpigmentation noted to Sacrum. DTPI noted to L Buttocks (L)7cm x (W)9cm. Base of wound is purple and indurated.Darker skin tone without erythema, induration or fluctuance R and L ischial tuberosities. Both heels are boggy with non-blanchable erythema. Tx.Plan: Cleanse wound R elbow with Saline. Apply TheraHoney, Apply Moisture Barrier Paste periwound. Cover with Optifoam drsg.Change Daily and prn. Wash GT site with soap and water.Pat dry. Apply Zinc Oxide Paste to GT site Daily. Leave Open to Air. Apply Zinc Oxide Paste to entire Scrotum, Place ABD pads to R and L lateral, and posterior aspects of scrotum TWICE daily. Apply Cavilon Skin Barrier to malleoli and both Heels. Cover each site with Optifoam drsgs. Change every 7 days and prn. Reposition at least every 2hours or as tolerated. Off-load heels with Pillows. APM/BECCA Mattress overlay. (10) Malnutrition Assessment & Plan: DAILY ESTIMATED NEEDS: Needs based on Renal, critical care, wound/ 61kg 22-28 kcals/kg 1034-5834 total kcals 1-1.25 (increase w/ renal improvement) g protein/kg 61-76 g total protein 20-25 mL/kg 9637-3055 total fluid mLs NUTRITION DIAGNOSIS: * Swallowing difficulty R/T respiratory failure, dysphagia as evidenced by trach/vent dep, PEG dep * Increased kcal/prot needs R/T wound healing as evidenced by admitted w/ multiple pressure injuries per photos, pending eval. CURRENT TF:Nepro @ 45ml/hr x 24 hrs ENTERAL NUTRITION RECOMMENDATIONS: NEPRO to 45ml/hr x 20 hrs to provide 900ml, 1620kcal, 73g prot, 654ml free water * Maintain current TF * HOB over 30 degrees/ water flush per MD ADDITIONAL RECOMMENDATIONS: * Per SNF: HT=63" GO=080 lbs (Vs EMR wt of 165lbs) -> obtain re-calibrated bedscale wt * Wound healing: add Nephrovite x 1 + Vit C 250mg QD add Garo 1pkt BID via GT * Monitor renal fxn and lytes, check phos level (11) Uremia (12) CKD (chronic kidney disease) stage 5, GFR less than 15 ml/min Jonathan Urias Aug 10, 2019 08:57
--- NOTE | 2019-08-10 10:19 | NUR ---
NURSE NOTES: Per Dr. Lyle regarding COVID swab from 08/07 resulted not detected, per MD, second COVID swab. Order noted, entered, carried out. Will continue to follow up.
--- NOTE | 2019-08-10 10:20 | NUR ---
NURSE NOTES: Dr. Ramirez made aware 2 unit of PRBC administered, follow up Hgb went up to 10.3, Per MD no need of 3rd unit of PRBC. Order noted, entered, carried out.
--- NOTE | 2019-08-10 11:20 | NUR ---
NURSE NOTES: COVID swab sent to lab.
[2019-08-10 12:00] VITALS: BP 122/53
--- NOTE | 2019-08-10 13:15 | NUR ---
*-* INSURANCE *-* UPDATED CLINICALS AND REVIEWS HAVE BEEN FAXED TO: [facility] P:[phone] F:[phone]
--- NOTE | 2019-08-10 13:44 | Infectious Diseases Prog Note ---
Assessment/Plan Assessment/Plan 1. Pneumonia. COVID19 X 1 : negative 2. Renal failure. 3. Leukocytosis improving 4. Respiratory failure, Ventilator dependent 5. Anemia 6. Anasarca 7. UTI PLAN: 1. Continue Zosyn. 2. repeat COVID-19 test is pending. 5. Continue isolation. 6. We will follow up cultures and adjust antibiotics accordingly. Subjective ROS Limited/Unobtainable: Yes Constitutional: Denies: fever Genitourinary: Reports: other - scrotal bleeding Allergies: Coded Allergies: No Known Allergies (Unverified , 06/10/19) Objective Last 24 Hour Vital Signs Date Time Temp Pulse Resp B/P (MAP) Pulse Ox O2 Delivery O2 Flow Rate FiO2 08/10/19 12:00 24 08/10/19 12:00 Mechanical Ventilator 08/10/19 12:00 98.1 72 17 122/53 (76) 99 08/10/19 12:00 73 08/10/19 10:47 61 15 24 08/10/19 09:09 73 17 24 08/10/19 08:12 120/61 08/10/19 08:12 120/61 08/10/19 08:11 76 120/61 08/10/19 08:00 Mechanical Ventilator 08/10/19 08:00 97.7 76 17 120/61 (80) 98 08/10/19 08:00 75 08/10/19 08:00 24 08/10/19 07:09 64 17 24 08/10/19 04:00 60 08/10/19 04:00 25 08/10/19 04:00 Mechanical Ventilator 08/10/19 04:00 97.0 60 16 141/74 (96) 98 08/10/19 03:30 62 18 24 08/10/19 00:00 97.1 60 16 128/69 (88) 100 08/10/19 00:00 25 08/10/19 00:00 Mechanical Ventilator 08/09/19 23:34 60 08/09/19 23:30 60 18 24 08/09/19 21:03 61 143/78 08/09/19 20:00 60 08/09/19 20:00 25 08/09/19 20:00 Mechanical Ventilator 08/09/19 20:00 Mechanical Ventilator 08/09/19 20:00 96.1 60 18 143/78 (99) 98 7/1/20 19:30 60 16 24 08/09/19 16:00 60 08/09/19 16:00 96.1 60 20 158/71 (100) 99 08/09/19 16:00 Mechanical Ventilator 08/09/19 16:00 25 08/09/19 14:59 60 15 25 Height (Feet): 5 Height (Inches): 7.00 Weight (Pounds): 167 HEENT: status post trach Respiratory/Chest: other - on ventilator Cardiovascular: normal rate Abdomen: soft, non tender, other - GT feeding Genitourinary: other - scrotal edema Extremities: other - legs edema Skin: ulcers, other - sacral & scrotom Neurologic/Psychiatric: aphasia Microbiology Date/Time Source Procedure Growth Status 08/08/19 19:50 Blood Blood Culture - Preliminary Staphylococcus Sp Coag Neg Resulted 08/08/19 19:35 Blood Blood Culture - Preliminary Gram Positive Cocci Resulted 08/09/19 16:30 Sputum Gram Stain - Final Resulted 08/09/19 16:30 Sputum Culture - Preliminary Gram Negative Bacillus 1 Resulted 08/08/19 20:18 Nasopharynx Coronavirus COVID-19 PCR ([facility]) - Final Complete 08/08/19 19:35 Urine,Clean Catch Urine Culture - Preliminary Strep Species, Alpha Hemolytic Resulted Laboratory Tests Test 08/09/19 17:05 08/09/19 23:17 08/10/19 04:05 08/10/19 05:28 POC Whole Blood Glucose Pending 165 MG/DL (74-106) H Pending White Blood Count 25.1 K/UL (4.8-10.8) *H Red Blood Count 3.74 M/UL (4.70-6.10) L Hemoglobin 10.3 G/DL (14.2-18.0) #L Hematocrit 32.7 % (42.0-52.0) #L Mean Corpuscular Volume 88 FL (80-99) Mean Corpuscular Hemoglobin 27.6 PG (27.0-31.0) Mean Corpuscular Hemoglobin Concent 31.5 G/DL (32.0-36.0) L Red Cell Distribution Width 17.0 % (11.6-14.8) H Platelet Count 523 K/UL (150-450) H Mean Platelet Volume 5.8 FL (6.5-10.1) L Neutrophils (%) (Auto) % (45.0-75.0) Lymphocytes (%) (Auto) % (20.0-45.0) Monocytes (%) (Auto) % (1.0-10.0) Eosinophils (%) (Auto) % (0.0-3.0) Basophils (%) (Auto) % (0.0-2.0) Differential Total Cells Counted 100 Neutrophils % (Manual) 85 % (45-75) H Lymphocytes % (Manual) 4 % (20-45) L Monocytes % (Manual) 5 % (1-10) Eosinophils % (Manual) 6 % (0-3) H Basophils % (Manual) 0 % (0-2) Band Neutrophils 0 % (0-8) Platelet Estimate Increased H Platelet Morphology Normal Polychromasia 1+ Hypochromasia 1+ Anisocytosis 1+ Sodium Level 125 MMOL/L (136-145) L Potassium Level 5.3 MMOL/L (3.5-5.1) H Chloride Level 95 MMOL/L (98-107) L Carbon Dioxide Level 19 MMOL/L (21-32) L Anion Gap 11 mmol/L (5-15) Blood Urea Nitrogen 145 mg/dL (7-18) H Creatinine 3.5 MG/DL (0.55-1.30) H Estimat Glomerular Filtration Rate 17.0 mL/min (>60) Glucose Level 193 MG/DL (74-106) H Calcium Level 8.7 MG/DL (8.5-10.1) Test 08/10/19 11:37 POC Whole Blood Glucose Pending Current Medications Medications (Trade) Dose Ordered Sig/Leonel Route PRN Reason Start Time Stop Time Status Last Admin Dose Admin Acetaminophen (Tylenol) 650 mg Q4H PRN GT Mild Pain / fever 08/09/19 05:30 09/08/19 05:29 Al Hydroxide/Mg Hydroxide (Mylanta) 30 ml FOUR TIMES A DAY PRN GT constipation 08/09/19 06:00 09/08/19 05:29 Ascorbic Acid (Vitamin C) 500 mg DAILY GT 08/09/19 09:00 09/08/19 08:59 08/10/19 08:11 Atorvastatin Calcium (Lipitor) 40 mg BEDTIME GT 08/09/19 21:00 11/07/19 20:59 08/09/19 21:03 Benazepril HCl (Lotensin) 20 mg DAILY GT 08/09/19 09:00 09/08/19 08:59 08/10/19 08:12 Chlorhexidine Gluconate (Felipa-Hex 2%) 1 applic DAILY@1999 TOPIC 08/09/19 20:00 11/07/19 19:59 Dextrose (Dextrose 50%) 25 ml Q30M PRN IV Hypoglycemia 08/09/19 07:30 11/07/19 07:29 Dextrose (Dextrose 50%) 50 ml Q30M PRN IV Hypoglycemia 08/09/19 07:30 11/07/19 07:29 Epoetin Andreas (Epoetin Andreas-EPBX(NON ESRD)) 8,000 unit SUBQ 08/09/19 21:00 11/07/19 20:59 08/09/19 21:02 Insulin Aspart (NovoLOG) Q6HR SUBQ 08/10/19 00:00 11/07/19 11:29 08/10/19 05:30 Lansoprazole (Prevacid) 30 mg DAILY GT 08/09/19 09:00 09/08/19 08:59 08/10/19 08:12 Loperamide HCl (Imodium) 2 mg Q4H PRN GT Diarrhea 08/09/19 08:00 09/08/19 07:59 Metoprolol Tartrate (Lopressor) 200 mg Q12HR GT 08/09/19 09:00 11/07/19 08:59 08/10/19 08:11 Minoxidil (Loniten) 5 mg DAILY GT 08/09/19 09:00 11/07/19 08:59 08/10/19 08:12 Multivitamins (Multivitamins W/ Minerals 15ml Liquid) 15 ml DAILY GT 08/09/19 09:00 09/08/19 08:59 08/10/19 08:09 Piperacillin Sod/ Tazobactam Sod 3.375 gm/Sodium Chloride 110 ml @ 27.5 mls/hr Q12H IVPB 08/09/19 06:00 08/16/19 05:59 08/10/19 08:09 Potassium Chloride (K-Dur) 20 meq DAILY GT 08/09/19 09:00 11/07/19 08:59 08/09/19 10:02 Sodium Chloride 1,000 ml @ 50 mls/hr Q20H IV 08/10/19 06:00 09/08/19 05:59 08/10/19 05:32 Vitamin B Complex/ Vit C/Folic Acid (Nephrovite) 1 tab DAILY GT 08/09/19 09:00 09/08/19 08:59 08/10/19 08:11 Vitamin D (Vitamin D) 1,000 intlu DAILY GT 08/09/19 09:00 09/08/19 08:59 08/10/19 08:12 Zinc Oxide (Zinc Oxide) 1 applic BID TOPIC 08/10/19 18:00 11/08/19 17:59 Real De Leon MD Aug 10, 2019 13:44
--- NOTE | 2019-08-10 14:34 | Nephrology Progress Note ---
Assessment/Plan Plan Sepsis - IV Abx Skin wounds - wound care Pre ESRD - 24h urine collection. See orders. Hyponatremia - on 3% NaCl Subjective Subjective Obtunded Objective Objective Last 24 Hour Vital Signs Date Time Temp Pulse Resp B/P (MAP) Pulse Ox O2 Delivery O2 Flow Rate FiO2 08/10/19 12:00 24 08/10/19 12:00 Mechanical Ventilator 08/10/19 12:00 98.1 72 17 122/53 (76) 99 08/10/19 12:00 73 08/10/19 10:47 61 15 24 08/10/19 09:09 73 17 24 08/10/19 08:12 120/61 08/10/19 08:12 120/61 08/10/19 08:11 76 120/61 08/10/19 08:00 Mechanical Ventilator 08/10/19 08:00 97.7 76 17 120/61 (80) 98 08/10/19 08:00 75 08/10/19 08:00 24 08/10/19 07:09 64 17 24 08/10/19 04:00 60 08/10/19 04:00 25 08/10/19 04:00 Mechanical Ventilator 08/10/19 04:00 97.0 60 16 141/74 (96) 98 08/10/19 03:30 62 18 24 08/10/19 00:00 97.1 60 16 128/69 (88) 100 08/10/19 00:00 25 08/10/19 00:00 Mechanical Ventilator 08/09/19 23:34 60 08/09/19 23:30 60 18 24 08/09/19 21:03 61 143/78 08/09/19 20:00 60 08/09/19 20:00 25 08/09/19 20:00 Mechanical Ventilator 08/09/19 20:00 Mechanical Ventilator 08/09/19 20:00 96.1 60 18 143/78 (99) 98 08/09/19 19:30 60 16 24 08/09/19 16:00 60 08/09/19 16:00 96.1 60 20 158/71 (100) 99 08/09/19 16:00 Mechanical Ventilator 08/09/19 16:00 25 08/09/19 14:59 60 15 25 Intake and Output 08/09/19 08/10/19 19:00 07:00 Intake Total 1452.5 ml 1358.333 ml Output Total 400 ml 400 ml Balance 1052.5 ml 958.333 ml Free Water 300 ml 120 ml IV Total 382.5 ml 273.333 ml Tube Feeding 270 ml 465 ml Blood Product 500 ml Other 500 ml Output Urine Total 400 ml 400 ml Laboratory Tests 08/09/19 17:05: POC Whole Blood Glucose [Pending] 08/09/19 23:17: POC Whole Blood Glucose 165H 08/10/19 04:05: White Blood Count 25.1*H, Red Blood Count 3.74L, Hemoglobin 10.3#L, Hematocrit 32.7#L, Mean Corpuscular Volume 88, Mean Corpuscular Hemoglobin 27.6, Mean Corpuscular Hemoglobin Concent 31.5L, Red Cell Distribution Width 17.0H, Platelet Count 523H, Mean Platelet Volume 5.8L, Neutrophils (%) (Auto) , Lymphocytes (%) (Auto) , Monocytes (%) (Auto) , Eosinophils (%) (Auto) , Basophils (%) (Auto) , Differential Total Cells Counted 100, Neutrophils % ( Manual) 85H, Lymphocytes % (Manual) 4L, Monocytes % (Manual) 5, Eosinophils % ( Manual) 6H, Basophils % (Manual) 0, Band Neutrophils 0, Platelet Estimate IncreasedH, Platelet Morphology Normal, Polychromasia 1+, Hypochromasia 1+, Anisocytosis 1+, Sodium Level 125L, Potassium Level 5.3H, Chloride Level 95L, Carbon Dioxide Level 19L, Anion Gap 11, Blood Urea Nitrogen 145H, Creatinine 3.5H, Estimat Glomerular Filtration Rate 17.0, Glucose Level 193H, Calcium Level 8.7 08/10/19 05:28: POC Whole Blood Glucose [Pending] 08/10/19 11:37: POC Whole Blood Glucose [Pending] Height (Feet): 5 Height (Inches): 7.00 Weight (Pounds): 167 Objective CV RR Trach clean Lungs CTA Abd SNT. BS + E No CCE Erica Pichardo MD Aug 10, 2019 14:34
--- NOTE | 2019-08-10 14:56 | NUR ---
NURSE NOTES:WOUND CARE NOTES:Pt presented on admission with generalized edemae.Skin assessed under tracheostomy and no areas of concerns noted. GT Insertion is marginally erythematous with small amt slough at stoma. Unstageable Pressure Injury R elbow. Base of wound is 100% yellow slough,Borders are erythematous. Wound oozing small amt haemopurulent exudate.Darker skin tone without elevation in skin temp or erythema periwound. Pt's penis and scrotum are grossly edematous and enlarged and weeping serous exudate from numerous sites both from penis and scrotum. Two small open wounds noted at base of at base of shaft of penis ,and contreras aspect of scrotum. Both wounds oozing large amt sanguineous and serosanguineous exudate. Multiple open wounds with Biofilm at base of each wounds noted to contreras/lateral,inferior and posterior aspects of scrotum. These wounds noted to be oozing moderate amts of serosanguineous exudate. Hypertrophic scar with scattered areas of hyperpigmentation noted to Sacrum. DTPI noted to L Buttocks (L)7cm x (W)9cm. Base of wound is purple and indurated.Darker skin tone without erythema,induration or fluctuance R and L ischial tuberosities. Both heels are boggy with non-blanchable erythema. Tx.Plan: Cleanse wound R elbow with Saline. Apply TheraHoney, Apply Moisture Barrier Paste periwound. Cover with Optifoam drsg.Change Daily and prn. Wash GT site with soap and water.Pat dry. Apply Zinc Oxide Paste to GT site Daily. Leave Open to Air. Apply Zinc Oxide Paste to entire Scrotum, Place ABD pads to R and L lateral, and posterior aspects of scrotum TWICE daily. Apply Cavilon Skin Barrier to malleoli and both Heels. Cover each site with Optifoam drsgs. Change every 7 days and prn. Reposition at least every 2hours or as tolerated. Off-load heels with Pillows. APM/BECCA Mattress overlay.
[2019-08-10 16:00] VITALS: BP 142/61
--- NOTE | 2019-08-10 16:23 | NUR ---
CASE MANAGEMENT: REVIEW 08/10/19 SI: S/P X2 BLOOD TXRIGHT LOWER LOBE PNA . ANEMIA 98.1 72 17 122/53 99% MECH VENT FIO2 24 WBC 25.1 PLT 523 NA+125 K+ 5.3 BUN/CREAT 145/3.5 BG 193 IS: IV ZOSYN BID IV NS @50ML/HR LOPRESSOR GT BID EPOETIN SQ MWF LOTENSIN GT QD PREVACID GT QD PATIENT ADMITTED TO STEP DOWN UNIT 08/08/2019 DCP: PATIENT IS FROM [facility]
--- NOTE | 2019-08-10 17:00 | NUR ---
NURSE NOTES: 24H urine collection sent to lab.
[2019-08-10] MEDS: Zinc Oxide Oint 2oz TOPIC SCH (18:11)
[2019-08-10 18:12] LABS: ANION GAP 10 mmol/L (5-15); BLOOD UREA NITROGEN 143 mg/dL (7-18); CALCIUM 8.9 MG/DL (8.5-10.1); CARBON DIOXIDE 21 MMOL/L (21-32); CHLORIDE 95 MMOL/L (98-107); CREATININE 3.4 MG/DL (0.55-1.30); POTASSIUM 4.8 MMOL/L (3.5-5.1); SODIUM 126 MMOL/L (136-145)
--- NOTE | 2019-08-10 19:10 | NUR ---
HAND-OFF: Report given to Brodie Leon. Endorsed plan of care.
--- NOTE | 2019-08-10 19:10 | NUR ---
NURSE NOTES: Received patient and report from TAMICA العلي. Patient is seen resting in bed and obtunded. Pt is currently trach to vent; vent settings as follows: AC 16 Vt 450 FiO2 25% PEEP 5 with an O2 saturation of 99% noted. Pt appears to be tolerating settings well with no s/s of acute distress noted. Bilateral lower lobe breath sounds noted to be diminished upon auscultation. Pt noted to be VPaced on tele monitor with a current HR of 61 BPM and no s/s of acute distress noted. Avalos catheter remains intact, patent, and draining urine to gravity. Patient is noted with right wrist IV which is occluded and will be subsequently removed. Pt also noted with right upper arm 20 gauge IV which remains intact and patent. GT noted which remains intact and patent with 0 residual noted. GT feeding infusing Nepro as ordered at 45mL/hour. Bowel sounds noted in all four quadrants, abdomen remains large, round, firm, distended and nontender. Skin alterations noted around scrotum area. Bed remains in the lowest and locked position. Bed alarm activated. Call light within reach, side rails up x3. Will continue plan of care. Will continue to monitor.
[2019-08-10] MEDS: Dyna-Hex 2% Top Sol 2oz TOPIC SCH (19:32)
--- NOTE | 2019-08-10 19:56 | NUR ---
NURSE NOTES: Per Dr. Brito, follow up with MD when BNP level released. Left message Dr. Brito regarding BNP level.
[2019-08-10 20:00] VITALS: BP 155/78
--- NOTE | 2019-08-10 21:14 | General Progress Note ---
Assessment/Plan Assessment/Plan: Assessment - Acute and chronic anemia - Black stools, but patient on po Iron - Azotemia - Sepsis - Anasarca - resp failure, trach - dysphagia, GT - encephalopathy, contracted Recommendations - Check stool OB - Check stool C Diff - Check Iron panel - transfuse PRN - PPI - supportive care Subjective Allergies: Coded Allergies: No Known Allergies (Unverified , 06/10/19) Subjective Above noted d/w RN no melena overnight Objective Last 24 Hour Vital Signs Date Time Temp Pulse Resp B/P (MAP) Pulse Ox O2 Delivery O2 Flow Rate FiO2 08/10/19 19:30 66 16 24 08/10/19 16:00 97.5 75 16 142/61 (88) 96 08/10/19 16:00 24 08/10/19 16:00 Mechanical Ventilator 08/10/19 16:00 61 08/10/19 15:31 61 16 24 08/10/19 12:00 24 08/10/19 12:00 Mechanical Ventilator 08/10/19 12:00 98.1 72 17 122/53 (76) 99 08/10/19 12:00 73 08/10/19 10:47 61 15 24 08/10/19 09:09 73 17 24 08/10/19 08:12 120/61 08/10/19 08:12 120/61 08/10/19 08:11 76 120/61 08/10/19 08:00 Mechanical Ventilator 08/10/19 08:00 97.7 76 17 120/61 (80) 98 08/10/19 08:00 75 08/10/19 08:00 24 08/10/19 07:09 64 17 24 08/10/19 04:00 60 08/10/19 04:00 25 08/10/19 04:00 Mechanical Ventilator 08/10/19 04:00 97.0 60 16 141/74 (96) 98 08/10/19 03:30 62 18 24 08/10/19 00:00 97.1 60 16 128/69 (88) 100 08/10/19 00:00 25 08/10/19 00:00 Mechanical Ventilator 08/09/19 23:34 60 08/09/19 23:30 60 18 24 Intake and Output 08/09/19 08/10/19 19:00 07:00 Intake Total 1452.5 ml 1358.333 ml Output Total 400 ml 400 ml Balance 1052.5 ml 958.333 ml Free Water 300 ml 120 ml IV Total 382.5 ml 273.333 ml Tube Feeding 270 ml 465 ml Blood Product 500 ml Other 500 ml Output Urine Total 400 ml 400 ml Laboratory Tests 08/09/19 23:17: POC Whole Blood Glucose 165H 08/10/19 04:05: White Blood Count 25.1*H, Red Blood Count 3.74L, Hemoglobin 10.3#L, Hematocrit 32.7#L, Mean Corpuscular Volume 88, Mean Corpuscular Hemoglobin 27.6, Mean Corpuscular Hemoglobin Concent 31.5L, Red Cell Distribution Width 17.0H, Platelet Count 523H, Mean Platelet Volume 5.8L, Neutrophils (%) (Auto) , Lymphocytes (%) (Auto) , Monocytes (%) (Auto) , Eosinophils (%) (Auto) , Basophils (%) (Auto) , Differential Total Cells Counted 100, Neutrophils % ( Manual) 85H, Lymphocytes % (Manual) 4L, Monocytes % (Manual) 5, Eosinophils % ( Manual) 6H, Basophils % (Manual) 0, Band Neutrophils 0, Platelet Estimate IncreasedH, Platelet Morphology Normal, Polychromasia 1+, Hypochromasia 1+, Anisocytosis 1+, Sodium Level 125L, Potassium Level 5.3H, Chloride Level 95L, Carbon Dioxide Level 19L, Anion Gap 11, Blood Urea Nitrogen 145H, Creatinine 3.5H, Estimat Glomerular Filtration Rate 17.0, Glucose Level 193H, Calcium Level 8.7 08/10/19 05:28: POC Whole Blood Glucose [Pending] 08/10/19 11:37: POC Whole Blood Glucose [Pending] 08/10/19 17:30: Sodium Level 126L, Potassium Level 4.8, Chloride Level 95L, Carbon Dioxide Level 21, Anion Gap 10, Blood Urea Nitrogen 143H, Creatinine 3.4H, Estimat Glomerular Filtration Rate 17.6, Glucose Level 189H, Calcium Level 8.9, Pro-B- Type Natriuretic Peptide 9533H 08/10/19 18:03: POC Whole Blood Glucose 171H Height (Feet): 5 Height (Inches): 7.00 Weight (Pounds): 167 Objective Debilitated AA man NCAT (+) trach coarse BS RR abd distended, anasarca, (+) GT ext (+) edema contracted Ronny Mustafa MD Aug 10, 2019 21:14
[2019-08-10 21:24] LABS: CREATININE 3.5 MG/DL (0.55-1.30)
[2019-08-10] MEDS: Atorvastatin 20mg tab GT SCH (21:38)
--- NOTE | 2019-08-10 22:30 | NUR ---
NURSE NOTES: Patient remains obtunded, with no signs of distress noted. FLACC scale with a score of 0 noted. Pt provided with a full CHG bed bath, oral care and suctioning for excess secretions, and linen change rendered. Pt tolerated care well. Pt repositioned for comfort and safety. VS noted to be stable at this time. Fall, Aspiration and Skin precautions observed. Pt remains resting in bed; Bed remains in the lowest position with the safety wheels engaged, call light within reach, side rails up x3 and bed alarm activated. Will continue plan of care. Will continue to monitor.
[2019-08-11] VITALS: BP 125/61
--- NOTE | 2019-08-11 02:00 | NUR ---
NURSE NOTES: Patient remains stable and afebrile at this time. No distress noted and tolerating vent settings well. Patient noted with edema and skin tears on scrotum. Bloody secretions noted in oral cavity. Initiated suction with soft sponge to prevent further trauma to oral cavity.Kept patient clean and dry. Q2 turns initiated. Will continue to monitor.
[2019-08-11 04:00] VITALS: BP 128/53
--- NOTE | 2019-08-11 04:05 | NUR ---
NURSE NOTES: Spoke with Booker from Microbiology. 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 Message left for Dr Lyle. Will continue to monitor.
--- NOTE | 2019-08-11 05:00 | NUR ---
NURSE NOTES: Patient tolerating all vent and feed settings well. Vitals WNL. Patient did not make bowel movement during shift. Will endorse plan of care to next shift.
[2019-08-11] MEDS: NovoLOG Insulin Flexpen SUBQ SCH ×4 (05:45→23:49)
[2019-08-11 05:49] LABS: HEMATOCRIT 32.2 % (42.0-52.0); HEMOGLOBIN 10.2 G/DL (14.2-18.0); MEAN CORPUSCULAR VOLUME 88 FL (80-99); PLATELET COUNT 473 K/UL (150-450); RED BLOOD COUNT 3.66 M/UL (4.70-6.10); RED CELL DISTRIBUTION WIDTH 16.9 % (11.6-14.8)
[2019-08-11 06:05] LABS: ANION GAP 9 mmol/L (5-15); BLOOD UREA NITROGEN 138 mg/dL (7-18); CALCIUM 8.9 MG/DL (8.5-10.1); CARBON DIOXIDE 21 MMOL/L (21-32); CHLORIDE 95 MMOL/L (98-107); CREATININE 3.5 MG/DL (0.55-1.30); POTASSIUM 4.8 MMOL/L (3.5-5.1); SODIUM 125 MMOL/L (136-145)
[2019-08-11 06:17] LABS: WHITE BLOOD COUNT 25.5 K/UL (4.8-10.8)
--- NOTE | 2019-08-11 06:40 | NUR ---
NURSE NOTES: COVID-19 test resulted in negative. Left message for Dr. Lyle in regards to possible D/C for isolation. Patient in stable condition.
--- NOTE | 2019-08-11 07:25 | NUR ---
NURSE NOTES: Report given to TAMICA Ennis.
--- NOTE | 2019-08-11 07:25 | NUR ---
HAND-OFF: Report given to TAMICA Ennis. Endorsed plan of care. Patient in stable condition.
--- NOTE | 2019-08-11 07:30 | NUR ---
NURSE NOTES: Report received from Kate Emmanuel RN/Carolyn Hooks RN.Pt resting quietly in bed asleep noted no resp distress,with trach tube to vent ,ordered vent settings tolerated,no signs of pain or discomfort,V-Paced on the monitor,GFT Nepro at 45 ml/hr no residual noted,Avalos cath draining yellow urine,skin warm and dry,PIV site to TERRENCE with NS at 50 ml/hr,SR up x2 HOB elevated bed lock in lowest position,will continue with plans of care.
[2019-08-11 08:00] VITALS: BP 121/58
[2019-08-11] MEDS: Piperacillin/Tazobactam 3.375 GM in NS 110 ML IVPB SCH ×2 (09:05→20:21)
[2019-08-11] MEDS: Metoprolol Tartrate 100mg tab GT SCH ×2 (09:06→20:21)
[2019-08-11] MEDS: Benazepril 10mg tab GT SCH (09:06)
--- NOTE | 2019-08-11 09:06 | NUR ---
CASE MANAGEMENT:REVIEW 08/11/19 SI: ANEMIA. GIB. SEPSIS. AC/CHR RENAL FAILURE TRACH/VENT/GTUBE. COVID (-) 98.5 67 19 121/58 95% ON VENT SUPPORT 24% FIO2 WBC+25.5 H/H-10.2/32.2 NA-125 BUN+138 CR+3.5 IS: IVF@50/HR IV ZOSYN Q12 INSULIN SQ Q6HRS EPOETIN SQ MWF K-DUR GT QD MINOXIDIL GT QD LOTENSIN GT QD LOPRESSOR GT Q12 : STEP DOWN UNIT DCP: FROM [facility]
[2019-08-11] MEDS: Minoxidil 2.5mg tab GT SCH (09:07)
[2019-08-11] MEDS: Vitamin D 1000 IU Tab GT SCH (09:07)
[2019-08-11] MEDS: Nephrovite tab (Rena-Vite) GT SCH (09:07)
[2019-08-11] MEDS: Multivitamins W/Minerals 15 ML UDC GT SCH (09:07)
[2019-08-11] MEDS: Ascorbic Acid 500mg tab GT SCH (09:07)
[2019-08-11] MEDS: Zinc Oxide Oint 2oz TOPIC SCH ×2 (09:10→17:38)
--- NOTE | 2019-08-11 09:13 | General Progress Note ---
Assessment/Plan Assessment/Plan: IMPRESSION: 1. Profound anemia. 2. Possible GI bleed. 3. Leukocytosis. 4. Probable sepsis. + BCX 5. Acute on chronic renal failure. 6. Hyponatremia. 7. Severe protein-calorie malnutrition. 8. Significantly elevated C-reactive protein concerning for infectious etiology. 9. Tracheostomy, G-tube. 10. Ventilator dependence. PLAN care noted on vent monitor sodium monitor renal function iv antibiotics check cultures care noted and reviewed impression, plan, and exam edited and reviewed in detail care discussed with RN Subjective ROS Limited/Unobtainable: Yes Allergies: Coded Allergies: No Known Allergies (Unverified , 06/10/19) Subjective remains ill on vent Objective Last 24 Hour Vital Signs Date Time Temp Pulse Resp B/P (MAP) Pulse Ox O2 Delivery O2 Flow Rate FiO2 08/11/19 09:07 121/58 08/11/19 09:06 67 121/58 08/11/19 09:06 121/58 08/11/19 08:00 24 08/11/19 08:00 98.5 67 19 121/58 (79) 95 08/11/19 07:18 68 16 24 08/11/19 04:00 97.9 66 19 128/53 (78) 96 08/11/19 04:00 24 08/11/19 04:00 Mechanical Ventilator 08/11/19 03:31 74 08/11/19 02:48 65 16 24 08/11/19 00:00 97.7 61 19 125/61 (82) 99 08/11/19 00:00 Mechanical Ventilator 08/11/19 00:00 24 08/10/19 23:36 72 08/10/19 23:28 61 16 24 08/10/19 21:38 63 155/84 08/10/19 20:00 24 08/10/19 20:00 Mechanical Ventilator 08/10/19 20:00 97.9 60 24 155/78 (103) 98 08/10/19 19:30 66 16 24 08/10/19 19:25 66 08/10/19 16:00 97.5 75 16 142/61 (88) 96 08/10/19 16:00 24 08/10/19 16:00 Mechanical Ventilator 08/10/19 16:00 61 08/10/19 15:31 61 16 24 08/10/19 12:00 24 08/10/19 12:00 Mechanical Ventilator 08/10/19 12:00 98.1 72 17 122/53 (76) 99 08/10/19 12:00 73 08/10/19 10:47 61 15 24 Intake and Output 08/10/19 08/11/19 19:00 07:00 Intake Total 1130.0 ml 1060.00 ml Output Total 400 ml 200 ml Balance 730.0 ml 860.00 ml Free Water 60 ml 60 ml IV Total 710.0 ml 460.00 ml Tube Feeding 360 ml 540 ml Output Urine Total 400 ml 200 ml Laboratory Tests 08/10/19 11:37: POC Whole Blood Glucose [Pending] 08/10/19 17:00: Creatinine 3.5H, Estimat Glomerular Filtration Rate 17.0 08/10/19 17:30: Creatinine 3.4H, Estimat Glomerular Filtration Rate 17.6, Sodium Level 126L, Potassium Level 4.8, Chloride Level 95L, Carbon Dioxide Level 21, Anion Gap 10, Blood Urea Nitrogen 143H, Glucose Level 189H, Calcium Level 8.9, Pro-B-Type Natriuretic Peptide 9533H 08/10/19 18:03: POC Whole Blood Glucose 171H 08/10/19 23:21: POC Whole Blood Glucose 166H 08/11/19 03:30: White Blood Count 25.5*H, Red Blood Count 3.66L, Hemoglobin 10.2L, Hematocrit 32.2L, Mean Corpuscular Volume 88, Mean Corpuscular Hemoglobin 27.9, Mean Corpuscular Hemoglobin Concent 31.7L, Red Cell Distribution Width 16.9H, Platelet Count 473H, Mean Platelet Volume 5.5L, Neutrophils (%) (Auto) , Lymphocytes (%) (Auto) , Monocytes (%) (Auto) , Eosinophils (%) (Auto) , Basophils (%) (Auto) , Differential Total Cells Counted 100, Neutrophils % ( Manual) 72, Lymphocytes % (Manual) 10L, Monocytes % (Manual) 12H, Eosinophils % (Manual) 6H, Basophils % (Manual) 0, Band Neutrophils 0, Platelet Estimate Adequate, Platelet Morphology Normal, Hypochromasia 1+, Anisocytosis 1+, Sodium Level 125L, Potassium Level 4.8, Chloride Level 95L, Carbon Dioxide Level 21, Anion Gap 9, Blood Urea Nitrogen 138H, Creatinine 3.5H, Estimat Glomerular Filtration Rate 17.0, Glucose Level 182H, Calcium Level 8.9 08/11/19 05:42: POC Whole Blood Glucose [Pending] Height (Feet): 5 Height (Inches): 7.00 Weight (Pounds): 166 Objective GENERAL: Ill-appearing male, chronically debilitated. HEENT: Tracheostomy in midline. Questionable fullness in the submandibular region. LUNGS: Coarse breath sounds. CARDIAC: S1, S2. Regular rate and rhythm. ABDOMEN: Soft. G-tube. EXTREMITIES: With noted edema. NEUROLOGICAL: Poorly responsive, weak diffusely. Kain Ramirez MD Aug 11, 2019 09:13
[2019-08-11] MEDS ORDERED: Tubing IV Secondary IV ONE (10:00)
[2019-08-11] MEDS ORDERED: NS 275ml ONE (10:00)
[2019-08-11] MEDS ORDERED: Tubing Blood Filter IV ONE (10:00)
--- NOTE | 2019-08-11 10:20 | Nephrology Progress Note ---
Assessment/Plan Plan Sepsis - IV Abx Skin wounds - wound care Pre ESRD - creatinine clearance 19 but true GFR may be lower. Hyponatremia - on 3% NaCl Subjective Subjective Obtunded Objective Objective Last 24 Hour Vital Signs Date Time Temp Pulse Resp B/P (MAP) Pulse Ox O2 Delivery O2 Flow Rate FiO2 08/11/19 09:07 121/58 08/11/19 09:06 67 121/58 08/11/19 09:06 121/58 08/11/19 08:00 24 08/11/19 08:00 98.5 67 19 121/58 (79) 95 08/11/19 07:18 68 16 24 08/11/19 04:00 97.9 66 19 128/53 (78) 96 08/11/19 04:00 24 08/11/19 04:00 Mechanical Ventilator 08/11/19 03:31 74 08/11/19 02:48 65 16 24 08/11/19 00:00 97.7 61 19 125/61 (82) 99 08/11/19 00:00 Mechanical Ventilator 08/11/19 00:00 24 08/10/19 23:36 72 08/10/19 23:28 61 16 24 08/10/19 21:38 63 155/84 08/10/19 20:00 24 08/10/19 20:00 Mechanical Ventilator 08/10/19 20:00 97.9 60 24 155/78 (103) 98 08/10/19 19:30 66 16 24 08/10/19 19:25 66 08/10/19 16:00 97.5 75 16 142/61 (88) 96 08/10/19 16:00 24 08/10/19 16:00 Mechanical Ventilator 08/10/19 16:00 61 08/10/19 15:31 61 16 24 08/10/19 12:00 24 08/10/19 12:00 Mechanical Ventilator 08/10/19 12:00 98.1 72 17 122/53 (76) 99 08/10/19 12:00 73 08/10/19 10:47 61 15 24 Intake and Output 08/10/19 08/11/19 19:00 07:00 Intake Total 1130.0 ml 1060.00 ml Output Total 400 ml 200 ml Balance 730.0 ml 860.00 ml Free Water 60 ml 60 ml IV Total 710.0 ml 460.00 ml Tube Feeding 360 ml 540 ml Output Urine Total 400 ml 200 ml Laboratory Tests 08/10/19 11:37: POC Whole Blood Glucose [Pending] 08/10/19 17:00: Creatinine 3.5H, Estimat Glomerular Filtration Rate 17.0 08/10/19 17:30: Creatinine 3.4H, Estimat Glomerular Filtration Rate 17.6, Sodium Level 126L, Potassium Level 4.8, Chloride Level 95L, Carbon Dioxide Level 21, Anion Gap 10, Blood Urea Nitrogen 143H, Glucose Level 189H, Calcium Level 8.9, Pro-B-Type Natriuretic Peptide 9533H 08/10/19 18:03: POC Whole Blood Glucose 171H 08/10/19 23:21: POC Whole Blood Glucose 166H 08/11/19 03:30: White Blood Count 25.5*H, Red Blood Count 3.66L, Hemoglobin 10.2L, Hematocrit 32.2L, Mean Corpuscular Volume 88, Mean Corpuscular Hemoglobin 27.9, Mean Corpuscular Hemoglobin Concent 31.7L, Red Cell Distribution Width 16.9H, Platelet Count 473H, Mean Platelet Volume 5.5L, Neutrophils (%) (Auto) , Lymphocytes (%) (Auto) , Monocytes (%) (Auto) , Eosinophils (%) (Auto) , Basophils (%) (Auto) , Differential Total Cells Counted 100, Neutrophils % ( Manual) 72, Lymphocytes % (Manual) 10L, Monocytes % (Manual) 12H, Eosinophils % (Manual) 6H, Basophils % (Manual) 0, Band Neutrophils 0, Platelet Estimate Adequate, Platelet Morphology Normal, Hypochromasia 1+, Anisocytosis 1+, Sodium Level 125L, Potassium Level 4.8, Chloride Level 95L, Carbon Dioxide Level 21, Anion Gap 9, Blood Urea Nitrogen 138H, Creatinine 3.5H, Estimat Glomerular Filtration Rate 17.0, Glucose Level 182H, Calcium Level 8.9 08/11/19 05:42: POC Whole Blood Glucose [Pending] Height (Feet): 5 Height (Inches): 7.00 Weight (Pounds): 166 Objective CV RR Trach clean Lungs CTA Abd SNT. BS + E No CCE Erica Pichardo MD Aug 11, 2019 10:20
--- NOTE | 2019-08-11 10:42 | NUR ---
*-* INSURANCE *-* UPDATED CLINICALS AND REVIEWS HAVE BEEN FAXED TO: ELIN P:[phone] F:[phone]
--- NOTE | 2019-08-11 10:55 | Infectious Diseases Prog Note ---
Assessment/Plan Assessment/Plan antibiotics : zosyn A 1. VRE UTI 2. + blood cultures with coag neg staph likely contaminated 3. respiratory failure 4. leucocytosis improving 5. group G streptococcus, gram negative pneumonia COVID 19 test negative x 2 P 1. start linezolid 2. continue zosyn 3. will follow up cultures Subjective ROS Limited/Unobtainable: Yes Allergies: Coded Allergies: No Known Allergies (Unverified , 06/10/19) Objective Last 24 Hour Vital Signs Date Time Temp Pulse Resp B/P (MAP) Pulse Ox O2 Delivery O2 Flow Rate FiO2 08/11/19 09:07 121/58 08/11/19 09:06 67 121/58 08/11/19 09:06 121/58 08/11/19 08:00 24 08/11/19 08:00 98.5 67 19 121/58 (79) 95 08/11/19 07:18 68 16 24 08/11/19 04:00 97.9 66 19 128/53 (78) 96 08/11/19 04:00 24 08/11/19 04:00 Mechanical Ventilator 08/11/19 03:31 74 08/11/19 02:48 65 16 24 08/11/19 00:00 97.7 61 19 125/61 (82) 99 08/11/19 00:00 Mechanical Ventilator 08/11/19 00:00 24 08/10/19 23:36 72 08/10/19 23:28 61 16 24 08/10/19 21:38 63 155/84 08/10/19 20:00 24 08/10/19 20:00 Mechanical Ventilator 08/10/19 20:00 97.9 60 24 155/78 (103) 98 08/10/19 19:30 66 16 24 08/10/19 19:25 66 08/10/19 16:00 97.5 75 16 142/61 (88) 96 08/10/19 16:00 24 08/10/19 16:00 Mechanical Ventilator 08/10/19 16:00 61 08/10/19 15:31 61 16 24 08/10/19 12:00 24 08/10/19 12:00 Mechanical Ventilator 08/10/19 12:00 98.1 72 17 122/53 (76) 99 08/10/19 12:00 73 Height (Feet): 5 Height (Inches): 7.00 Weight (Pounds): 166 HEENT: status post trach Respiratory/Chest: lungs clear Cardiovascular: normal rate, regular rhythm, no gallop/murmur Abdomen: soft, non tender Extremities: no edema Microbiology Date/Time Source Procedure Growth Status 08/08/19 19:50 Blood Blood Culture - Final Staphylococcus Haemolyticus Complete 08/08/19 19:35 Blood Blood Culture - Preliminary Staphylococcus Sp Coag Neg Resulted 08/10/19 11:06 Nasopharynx Coronavirus COVID-19 PCR ([facility]) - Final Complete 08/09/19 16:30 Sputum Gram Stain - Final Resulted 08/09/19 16:30 Sputum Culture - Preliminary Gram Negative Bacillus 1 Gram Negative Bacillus 2 Gram Negative Bacillus 3 Streptococcus Group G Resulted 08/08/19 20:57 Nasal Nares MRSA Culture - Final Staphylococcus Aureus - Mrsa Complete 08/08/19 20:18 Nasopharynx Coronavirus COVID-19 PCR ([facility]) - Final Complete 08/08/19 19:35 Urine,Clean Catch Urine Culture - Final Enterococcus Faecium - Vre Complete 08/08/19 20:57 Rectum VRE Culture - Final Enterococcus Faecium - Vre Complete Laboratory Tests Test 08/10/19 11:37 08/10/19 17:00 08/10/19 17:30 08/10/19 18:03 POC Whole Blood Glucose Pending 171 MG/DL (74-106) H Creatinine 3.5 MG/DL (0.55-1.30) H 3.4 MG/DL (0.55-1.30) H Estimat Glomerular Filtration Rate 17.0 mL/min (>60) 17.6 mL/min (>60) Sodium Level 126 MMOL/L (136-145) L Potassium Level 4.8 MMOL/L (3.5-5.1) Chloride Level 95 MMOL/L (98-107) L Carbon Dioxide Level 21 MMOL/L (21-32) Anion Gap 10 mmol/L (5-15) Blood Urea Nitrogen 143 mg/dL (7-18) H Glucose Level 189 MG/DL (74-106) H Calcium Level 8.9 MG/DL (8.5-10.1) Pro-B-Type Natriuretic Peptide 9533 pg/mL (0-125) H Test 08/10/19 23:21 08/11/19 03:30 08/11/19 05:42 POC Whole Blood Glucose 166 MG/DL (74-106) H Pending White Blood Count 25.5 K/UL (4.8-10.8) *H Red Blood Count 3.66 M/UL (4.70-6.10) L Hemoglobin 10.2 G/DL (14.2-18.0) L Hematocrit 32.2 % (42.0-52.0) L Mean Corpuscular Volume 88 FL (80-99) Mean Corpuscular Hemoglobin 27.9 PG (27.0-31.0) Mean Corpuscular Hemoglobin Concent 31.7 G/DL (32.0-36.0) L Red Cell Distribution Width 16.9 % (11.6-14.8) H Platelet Count 473 K/UL (150-450) H Mean Platelet Volume 5.5 FL (6.5-10.1) L Neutrophils (%) (Auto) % (45.0-75.0) Lymphocytes (%) (Auto) % (20.0-45.0) Monocytes (%) (Auto) % (1.0-10.0) Eosinophils (%) (Auto) % (0.0-3.0) Basophils (%) (Auto) % (0.0-2.0) Differential Total Cells Counted 100 Neutrophils % (Manual) 72 % (45-75) Lymphocytes % (Manual) 10 % (20-45) L Monocytes % (Manual) 12 % (1-10) H Eosinophils % (Manual) 6 % (0-3) H Basophils % (Manual) 0 % (0-2) Band Neutrophils 0 % (0-8) Platelet Estimate Adequate Platelet Morphology Normal Hypochromasia 1+ Anisocytosis 1+ Sodium Level 125 MMOL/L (136-145) L Potassium Level 4.8 MMOL/L (3.5-5.1) Chloride Level 95 MMOL/L (98-107) L Carbon Dioxide Level 21 MMOL/L (21-32) Anion Gap 9 mmol/L (5-15) Blood Urea Nitrogen 138 mg/dL (7-18) H Creatinine 3.5 MG/DL (0.55-1.30) H Estimat Glomerular Filtration Rate 17.0 mL/min (>60) Glucose Level 182 MG/DL (74-106) H Calcium Level 8.9 MG/DL (8.5-10.1) Current Medications Medications (Trade) Dose Ordered Sig/Leonel Route PRN Reason Start Time Stop Time Status Last Admin Dose Admin Acetaminophen (Tylenol) 650 mg Q4H PRN GT Mild Pain / fever 08/09/19 05:30 09/08/19 05:29 Al Hydroxide/Mg Hydroxide (Mylanta) 30 ml FOUR TIMES A DAY PRN GT constipation 08/09/19 06:00 09/08/19 05:29 Ascorbic Acid (Vitamin C) 500 mg DAILY GT 08/09/19 09:00 09/08/19 08:59 08/11/19 09:07 Atorvastatin Calcium (Lipitor) 40 mg BEDTIME GT 08/09/19 21:00 11/07/19 20:59 08/10/19 21:38 Benazepril HCl (Lotensin) 20 mg DAILY GT 08/09/19 09:00 09/08/19 08:59 08/11/19 09:06 Chlorhexidine Gluconate (Felipa-Hex 2%) 1 applic DAILY@1999 TOPIC 08/09/19 20:00 11/07/19 19:59 08/10/19 19:32 Dextrose (Dextrose 50%) 25 ml Q30M PRN IV Hypoglycemia 08/09/19 07:30 11/07/19 07:29 Dextrose (Dextrose 50%) 50 ml Q30M PRN IV Hypoglycemia 08/09/19 07:30 11/07/19 07:29 Epoetin Andreas (Epoetin Andreas-EPBX(NON ESRD)) 8,000 unit WED-WED-WED SUBQ 08/09/19 21:00 11/07/19 20:59 08/09/19 21:02 Insulin Aspart (NovoLOG) Q6HR SUBQ 08/10/19 00:00 11/07/19 11:29 08/11/19 05:45 Lansoprazole (Prevacid) 30 mg DAILY GT 08/09/19 09:00 09/08/19 08:59 08/11/19 09:07 Loperamide HCl (Imodium) 2 mg Q4H PRN GT Diarrhea 08/09/19 08:00 09/08/19 07:59 Metoprolol Tartrate (Lopressor) 200 mg Q12HR GT 08/09/19 09:00 11/07/19 08:59 08/11/19 09:06 Minoxidil (Loniten) 5 mg DAILY GT 08/09/19 09:00 11/07/19 08:59 08/11/19 09:07 Multivitamins (Multivitamins W/ Minerals 15ml Liquid) 15 ml DAILY GT 08/09/19 09:00 09/08/19 08:59 08/11/19 09:07 Piperacillin Sod/ Tazobactam Sod 3.375 gm/Sodium Chloride 110 ml @ 27.5 mls/hr Q12H IVPB 08/09/19 06:00 08/16/19 05:59 08/11/19 09:05 Potassium Chloride (K-Dur) 20 meq DAILY GT 08/09/19 09:00 11/07/19 08:59 08/11/19 09:05 Sodium Chloride 1,000 ml @ 50 mls/hr Q20H IV 08/10/19 06:00 09/08/19 05:59 08/10/19 23:18 Vitamin B Complex/ Vit C/Folic Acid (Nephrovite) 1 tab DAILY GT 08/09/19 09:00 09/08/19 08:59 08/11/19 09:07 Vitamin D (Vitamin D) 1,000 intlu DAILY GT 08/09/19 09:00 09/08/19 08:59 08/11/19 09:07 Zinc Oxide (Zinc Oxide) 1 applic BID TOPIC 08/10/19 18:00 11/08/19 17:59 08/11/19 09:10 Farnaz Lyle MD Aug 11, 2019 10:55
[2019-08-11 12:00] VITALS: BP 120/65
--- NOTE | 2019-08-11 12:00 | NUR ---
NURSE NOTES: Oral care done.tracheal /oral secretions suctioned PRN.
--- NOTE | 2019-08-11 14:32 | Surgery Progress Note ---
Surgery Progress Note Subjective Additional Comments covid negative leukocytosis h/h stable exam uchanged Objective Last 24 Hour Vital Signs Date Time Temp Pulse Resp B/P (MAP) Pulse Ox O2 Delivery O2 Flow Rate FiO2 08/11/19 12:00 97.9 61 19 120/65 (83) 96 08/11/19 12:00 Mechanical Ventilator 08/11/19 12:00 24 08/11/19 11:42 60 08/11/19 11:25 70 18 24 08/11/19 09:07 121/58 08/11/19 09:06 67 121/58 08/11/19 09:06 121/58 08/11/19 08:00 Mechanical Ventilator 08/11/19 08:00 24 08/11/19 08:00 98.5 67 19 121/58 (79) 95 08/11/19 07:56 75 08/11/19 07:18 68 16 24 08/11/19 04:00 97.9 66 19 128/53 (78) 96 08/11/19 04:00 24 08/11/19 04:00 Mechanical Ventilator 08/11/19 03:31 74 08/11/19 02:48 65 16 24 08/11/19 00:00 97.7 61 19 125/61 (82) 99 08/11/19 00:00 Mechanical Ventilator 08/11/19 00:00 24 08/10/19 23:36 72 08/10/19 23:28 61 16 24 08/10/19 21:38 63 155/84 08/10/19 20:00 24 08/10/19 20:00 Mechanical Ventilator 08/10/19 20:00 97.9 60 24 155/78 (103) 98 08/10/19 19:30 66 16 24 08/10/19 19:25 66 08/10/19 16:00 97.5 75 16 142/61 (88) 96 08/10/19 16:00 24 08/10/19 16:00 Mechanical Ventilator 08/10/19 16:00 61 08/10/19 15:31 61 16 24 I&O Intake and Output 08/10/19 08/11/19 19:00 07:00 Intake Total 1130.0 ml 1060.00 ml Output Total 400 ml 200 ml Balance 730.0 ml 860.00 ml Free Water 60 ml 60 ml IV Total 710.0 ml 460.00 ml Tube Feeding 360 ml 540 ml Output Urine Total 400 ml 200 ml Dressing: other Wound: other Drains: other Cardiovascular: RSR Respiratory: decreased breath sounds Abdomen: non-tender, present bowel sounds Extremities: no cyanosis Laboratory Tests Test 08/10/19 17:00 08/10/19 17:30 08/10/19 18:03 08/10/19 23:21 Creatinine 3.5 MG/DL (0.55-1.30) H 3.4 MG/DL (0.55-1.30) H Estimat Glomerular Filtration Rate 17.0 mL/min (>60) 17.6 mL/min (>60) Sodium Level 126 MMOL/L (136-145) L Potassium Level 4.8 MMOL/L (3.5-5.1) Chloride Level 95 MMOL/L (98-107) L Carbon Dioxide Level 21 MMOL/L (21-32) Anion Gap 10 mmol/L (5-15) Blood Urea Nitrogen 143 mg/dL (7-18) H Glucose Level 189 MG/DL (74-106) H Calcium Level 8.9 MG/DL (8.5-10.1) Pro-B-Type Natriuretic Peptide 9533 pg/mL (0-125) H POC Whole Blood Glucose 171 MG/DL (74-106) H 166 MG/DL (74-106) H Test 08/11/19 03:30 08/11/19 05:42 08/11/19 12:23 White Blood Count 25.5 K/UL (4.8-10.8) *H Red Blood Count 3.66 M/UL (4.70-6.10) L Hemoglobin 10.2 G/DL (14.2-18.0) L Hematocrit 32.2 % (42.0-52.0) L Mean Corpuscular Volume 88 FL (80-99) Mean Corpuscular Hemoglobin 27.9 PG (27.0-31.0) Mean Corpuscular Hemoglobin Concent 31.7 G/DL (32.0-36.0) L Red Cell Distribution Width 16.9 % (11.6-14.8) H Platelet Count 473 K/UL (150-450) H Mean Platelet Volume 5.5 FL (6.5-10.1) L Neutrophils (%) (Auto) % (45.0-75.0) Lymphocytes (%) (Auto) % (20.0-45.0) Monocytes (%) (Auto) % (1.0-10.0) Eosinophils (%) (Auto) % (0.0-3.0) Basophils (%) (Auto) % (0.0-2.0) Differential Total Cells Counted 100 Neutrophils % (Manual) 72 % (45-75) Lymphocytes % (Manual) 10 % (20-45) L Monocytes % (Manual) 12 % (1-10) H Eosinophils % (Manual) 6 % (0-3) H Basophils % (Manual) 0 % (0-2) Band Neutrophils 0 % (0-8) Platelet Estimate Adequate Platelet Morphology Normal Hypochromasia 1+ Anisocytosis 1+ Sodium Level 125 MMOL/L (136-145) L Potassium Level 4.8 MMOL/L (3.5-5.1) Chloride Level 95 MMOL/L (98-107) L Carbon Dioxide Level 21 MMOL/L (21-32) Anion Gap 9 mmol/L (5-15) Blood Urea Nitrogen 138 mg/dL (7-18) H Creatinine 3.5 MG/DL (0.55-1.30) H Estimat Glomerular Filtration Rate 17.0 mL/min (>60) Glucose Level 182 MG/DL (74-106) H Calcium Level 8.9 MG/DL (8.5-10.1) POC Whole Blood Glucose Pending Pending Plan Problems: (1) Anemia (2) Hyponatremia (3) Leukocytosis Assessment & Plan: Tracheostomy, left chest pacemaker are again demonstrated. There is bilateral interstitial and airspace disease and bilateral pleural fluid again demonstrated. This appears more severe than on the prior study. Bilateral interstitial and airspace infiltrates versus edema. Bilateral pleural effusions Leukocytosis, anemia, tachycardia, abnormal labs. Wound evaluated and likely etiology of patient's sepsis. Leukocytosis etiology work-up antibiotics per infectious disease Appreciate nephrology input transfuse with dialysis We will follow with recommendations thank you allowing participation's care (4) Ventilator dependent (5) Right lower lobe pneumonia (6) Hypokalemia (7) Hyperkalemia (8) Anasarca (9) Decubitus skin ulcer Assessment & Plan: pt presented on admission with generalized edemae.Skin assessed under tracheostomy and no areas of concerns noted. GT Insertion is marginally erythematous with small amt slough at stoma. Unstageable Pressure Injury R elbow. Base of wound is 100% yellow slough, Borders are erythematous. Wound oozing small amt haemopurulent exudate.Darker skin tone without elevation in skin temp or erythema periwound. Pt's penis and scrotum are grossly edematous and enlarged and weeping serous exudate from numerous sites both from penis and scrotum. Two small open wounds noted at base of at base of shaft of penis ,and contreras aspect of scrotum. Both wounds oozing large amt sanguineous and serosanguineous exudate. Multiple open wounds with Biofilm at base of each wounds noted to contreras/lateral,inferior and posterior aspects of scrotum. These wounds noted to be oozing moderate amts of serosanguineous exudate. Hypertrophic scar with scattered areas of hyperpigmentation noted to Sacrum. DTPI noted to L Buttocks (L)7cm x (W)9cm. Base of wound is purple and indurated.Darker skin tone without erythema, induration or fluctuance R and L ischial tuberosities. Both heels are boggy with non-blanchable erythema. Tx.Plan: Cleanse wound R elbow with Saline. Apply TheraHoney, Apply Moisture Barrier Paste periwound. Cover with Optifoam drsg.Change Daily and prn. Wash GT site with soap and water.Pat dry. Apply Zinc Oxide Paste to GT site Daily. Leave Open to Air. Apply Zinc Oxide Paste to entire Scrotum, Place ABD pads to R and L lateral, and posterior aspects of scrotum TWICE daily. Apply Cavilon Skin Barrier to malleoli and both Heels. Cover each site with Optifoam drsgs. Change every 7 days and prn. Reposition at least every 2hours or as tolerated. Off-load heels with Pillows. APM/BECCA Mattress overlay. (10) Malnutrition Assessment & Plan: DAILY ESTIMATED NEEDS: Needs based on Renal, critical care, wound/ 61kg 22-28 kcals/kg 0525-0517 total kcals 1-1.25 (increase w/ renal improvement) g protein/kg 61-76 g total protein 20-25 mL/kg 1086-2815 total fluid mLs NUTRITION DIAGNOSIS: * Swallowing difficulty R/T respiratory failure, dysphagia as evidenced by trach/vent dep, PEG dep * Increased kcal/prot needs R/T wound healing as evidenced by admitted w/ multiple pressure injuries per photos, pending eval. CURRENT TF:Nepro @ 45ml/hr x 24 hrs ENTERAL NUTRITION RECOMMENDATIONS: NEPRO to 45ml/hr x 20 hrs to provide 900ml, 1620kcal, 73g prot, 654ml free water * Maintain current TF * HOB over 30 degrees/ water flush per MD ADDITIONAL RECOMMENDATIONS: * Per SNF: HT=63" EJ=488 lbs (Vs EMR wt of 165lbs) -> obtain re-calibrated bedscale wt * Wound healing: add Nephrovite x 1 + Vit C 250mg QD add Garo 1pkt BID via GT * Monitor renal fxn and lytes, check phos level (11) Uremia (12) CKD (chronic kidney disease) stage 5, GFR less than 15 ml/min Jonathan Urias Aug 11, 2019 14:32
[2019-08-11 16:00] VITALS: BP 129/61
--- NOTE | 2019-08-11 16:37 | General Progress Note ---
Assessment/Plan Assessment/Plan: Assessment - Acute and chronic anemia - Black stools, but patient on po Iron - Renal failure - Sepsi / leukocytosis - Anasarca - resp failure, trach - dysphagia, GT - encephalopathy, contracted Recommendations - Check stool OB & C Diff - Check Iron panel - transfuse PRN - PPI - abx - supportive care Subjective Allergies: Coded Allergies: No Known Allergies (Unverified , 06/10/19) Subjective Above noted doing poorly persistent leukocytosis and renal failure Objective Last 24 Hour Vital Signs Date Time Temp Pulse Resp B/P (MAP) Pulse Ox O2 Delivery O2 Flow Rate FiO2 08/11/19 15:04 63 16 24 08/11/19 12:00 97.9 61 19 120/65 (83) 96 08/11/19 12:00 Mechanical Ventilator 08/11/19 12:00 24 08/11/19 11:42 60 08/11/19 11:25 70 18 24 08/11/19 09:07 121/58 08/11/19 09:06 67 121/58 08/11/19 09:06 121/58 08/11/19 08:00 Mechanical Ventilator 08/11/19 08:00 24 08/11/19 08:00 98.5 67 19 121/58 (79) 95 08/11/19 07:56 75 08/11/19 07:18 68 16 24 08/11/19 04:00 97.9 66 19 128/53 (78) 96 08/11/19 04:00 24 08/11/19 04:00 Mechanical Ventilator 08/11/19 03:31 74 08/11/19 02:48 65 16 24 08/11/19 00:00 97.7 61 19 125/61 (82) 99 08/11/19 00:00 Mechanical Ventilator 08/11/19 00:00 24 08/10/19 23:36 72 08/10/19 23:28 61 16 24 08/10/19 21:38 63 155/84 08/10/19 20:00 24 08/10/19 20:00 Mechanical Ventilator 08/10/19 20:00 97.9 60 24 155/78 (103) 98 08/10/19 19:30 66 16 24 08/10/19 19:25 66 Intake and Output 08/10/19 08/11/19 19:00 07:00 Intake Total 1130.0 ml 1155.00 ml Output Total 400 ml 200 ml Balance 730.0 ml 955.00 ml Free Water 60 ml 60 ml IV Total 710.0 ml 510.00 ml Tube Feeding 360 ml 585 ml Output Urine Total 400 ml 200 ml Laboratory Tests 08/10/19 17:00: Creatinine 3.5H, Estimat Glomerular Filtration Rate 17.0 08/10/19 17:30: Creatinine 3.4H, Estimat Glomerular Filtration Rate 17.6, Sodium Level 126L, Potassium Level 4.8, Chloride Level 95L, Carbon Dioxide Level 21, Anion Gap 10, Blood Urea Nitrogen 143H, Glucose Level 189H, Calcium Level 8.9, Pro-B-Type Natriuretic Peptide 9533H 08/10/19 18:03: POC Whole Blood Glucose 171H 08/10/19 23:21: POC Whole Blood Glucose 166H 08/11/19 03:30: White Blood Count 25.5*H, Red Blood Count 3.66L, Hemoglobin 10.2L, Hematocrit 32.2L, Mean Corpuscular Volume 88, Mean Corpuscular Hemoglobin 27.9, Mean Corpuscular Hemoglobin Concent 31.7L, Red Cell Distribution Width 16.9H, Platelet Count 473H, Mean Platelet Volume 5.5L, Neutrophils (%) (Auto) , Lymphocytes (%) (Auto) , Monocytes (%) (Auto) , Eosinophils (%) (Auto) , Basophils (%) (Auto) , Differential Total Cells Counted 100, Neutrophils % ( Manual) 72, Lymphocytes % (Manual) 10L, Monocytes % (Manual) 12H, Eosinophils % (Manual) 6H, Basophils % (Manual) 0, Band Neutrophils 0, Platelet Estimate Adequate, Platelet Morphology Normal, Hypochromasia 1+, Anisocytosis 1+, Sodium Level 125L, Potassium Level 4.8, Chloride Level 95L, Carbon Dioxide Level 21, Anion Gap 9, Blood Urea Nitrogen 138H, Creatinine 3.5H, Estimat Glomerular Filtration Rate 17.0, Glucose Level 182H, Calcium Level 8.9 08/11/19 05:42: POC Whole Blood Glucose [Pending] 08/11/19 12:23: POC Whole Blood Glucose [Pending] Height (Feet): 5 Height (Inches): 7.00 Weight (Pounds): 166 Objective Debilitated AA man NCAT (+) trach coarse BS RR abd distended, anasarca, (+) GT ext (+) edema contracted Ronny Mustafa MD Aug 11, 2019 16:36
--- NOTE | 2019-08-11 17:45 | NUR ---
NURSE NOTES: Pt with dark tarry diarrhea stools in large amount,stools for C-Diff sent to lab.
--- NOTE | 2019-08-11 19:15 | NUR ---
NURSE NOTES: Received report from TAMICA Ennis. Patient asleep, afebrile and no respiratory distress. V paced on [address] [facility] vent P8, ac 16, TV 450, FiO2 25%, peep 5. With Right upper arm 20g IV line w/ NS at 50cc/hr intact, patent and asymptomatic. On Nephro 45cc/hr x 20 hrs via GT intact and infusing well. needs were attended. HOB elevated. Bed rails are up and wheels are locked. Call light within reach. Continue plan of care.
--- NOTE | 2019-08-11 19:34 | NUR ---
HAND-OFF: Report given toRONEY Wang RN.
[2019-08-11 20:00] VITALS: BP 143/58
[2019-08-11] MEDS: Atorvastatin 20mg tab GT SCH (20:21)
[2019-08-11] MEDS: Epoetin Alfa-EPBX (NON ESRD)4000 units/ml vial SUBQ SCH (21:01)
[2019-08-12] VITALS: BP 118/61
--- NOTE | 2019-08-12 02:00 | NUR ---
NURSE NOTES: Pt was given partial bed bath. Gown and linens were changed. Pt tolerated the activity Continue to monitor the patient.
[2019-08-12 04:00] VITALS: BP 179/78
--- NOTE | 2019-08-12 04:00 | NUR ---
NURSE NOTES: Left a message to Dr Ramirez regarding pt's BP 184/95, Asymptomatic, no ALOC. Awaiting for Response from the doctor
[2019-08-12 05:58] LABS: HEMOGLOBIN 10.7 G/DL (14.2-18.0); MEAN CORPUSCULAR VOLUME 88 FL (80-99); PLATELET COUNT 522 K/UL (150-450); RED BLOOD COUNT 3.86 M/UL (4.70-6.10); RED CELL DISTRIBUTION WIDTH 16.9 % (11.6-14.8)
--- NOTE | 2019-08-12 06:00 | NUR ---
NURSE NOTES: Patient's BP was rechecked and resulted to 157/65 after repositioned to high rivera's. Asymptomatic and no discomforts
[2019-08-12] MEDS: NovoLOG Insulin Flexpen SUBQ SCH ×4 (06:02→23:15)
[2019-08-12 06:11] LABS: WHITE BLOOD COUNT 27.7 K/UL (4.8-10.8)
[2019-08-12 06:18] LABS: % IRON SATURATION 15 % (15-50); IRON 28 ug/dL (50-175); TOTAL IRON BINDING CAPACITY 191 ug/dL (250-450)
[2019-08-12 06:19] LABS: ANION GAP 14 mmol/L (5-15); BLOOD UREA NITROGEN 144 mg/dL (7-18); CALCIUM 8.8 MG/DL (8.5-10.1); CARBON DIOXIDE 19 MMOL/L (21-32); CHLORIDE 96 MMOL/L (98-107); CREATININE 3.6 MG/DL (0.55-1.30); POTASSIUM 4.8 MMOL/L (3.5-5.1); SODIUM 129 MMOL/L (136-145)
--- NOTE | 2019-08-12 07:30 | NUR ---
HAND-OFF: Report given to TAMICA Madsen.
--- NOTE | 2019-08-12 07:30 | NUR ---
NURSE NOTES: Received report from TAMICA Mata. Pt in bed closed eyes and responsive to pain stimuli. No c/o pain noted from facial pain scale. Trach with portex 8, connecting with vent setting with AC 15, TV 450, Fio2 24% and peep of 5 and sating 98%. G-tube site patent and intact and feeding on hold as ordered from 6:30am to 10:30am. f/c patent and intact. Scrotum is large and swelling and noted skin breakdown due to fluid retention. Dark color stool noted. Will continue to plan of care.
[2019-08-12 08:00] VITALS: BP 145/66
[2019-08-12] MEDS: Piperacillin/Tazobactam 3.375 GM in NS 110 ML IVPB SCH ×2 (08:54→20:17)
[2019-08-12] MEDS: Multivitamins W/Minerals 15 ML UDC GT SCH (08:54)
[2019-08-12] MEDS: Vitamin D 1000 IU Tab GT SCH (08:55)
[2019-08-12] MEDS: Nephrovite tab (Rena-Vite) GT SCH (08:55)
[2019-08-12] MEDS: Benazepril 10mg tab GT SCH (08:55)
[2019-08-12] MEDS: Minoxidil 2.5mg tab GT SCH (08:56)
[2019-08-12] MEDS: Metoprolol Tartrate 100mg tab GT SCH ×2 (08:56→20:18)
[2019-08-12] MEDS: Ascorbic Acid 500mg tab GT SCH (08:56)
[2019-08-12] MEDS: Zinc Oxide Oint 2oz TOPIC SCH ×2 (08:57→17:12)
--- NOTE | 2019-08-12 09:09 | Pulmonology Progress Note ---
Subjective ROS Limited/Unobtainable: No Constitutional: Denies: fever Allergies: Coded Allergies: No Known Allergies (Unverified , 06/10/19) Objective Last 24 Hour Vital Signs Date Time Temp Pulse Resp B/P (MAP) Pulse Ox O2 Delivery O2 Flow Rate FiO2 08/12/19 08:56 66 145/66 08/12/19 08:56 145/66 08/12/19 08:55 145/66 08/12/19 08:49 60 08/12/19 07:14 59 15 24 08/12/19 04:00 98.0 58 18 179/78 (111) 96 08/12/19 04:00 62 08/12/19 04:00 24 08/12/19 04:00 Mechanical Ventilator 08/12/19 02:54 57 16 24 08/12/19 00:00 Mechanical Ventilator 08/12/19 00:00 58 08/12/19 00:00 97.0 58 18 118/61 (80) 96 08/11/19 22:46 59 15 24 08/11/19 20:21 89 143/58 08/11/19 20:00 Mechanical Ventilator 08/11/19 20:00 97.5 89 18 143/58 (86) 96 08/11/19 20:00 24 08/11/19 19:29 64 16 24 08/11/19 19:25 60 08/11/19 16:00 Mechanical Ventilator 08/11/19 16:00 71 08/11/19 16:00 24 08/11/19 16:00 97.8 64 18 129/61 (83) 96 08/11/19 15:04 63 16 24 08/11/19 12:00 97.9 61 19 120/65 (83) 96 08/11/19 12:00 Mechanical Ventilator 08/11/19 12:00 24 08/11/19 11:42 60 08/11/19 11:25 70 18 24 Intake and Output 08/11/19 08/12/19 19:00 07:00 Intake Total 1402.5 ml 1250.0 ml Output Total 450 ml 350 ml Balance 952.5 ml 900.0 ml Free Water 200 ml IV Total 482.5 ml 710.0 ml Tube Feeding 540 ml 540 ml Other 180 ml Output Urine Total 450 ml 350 ml # Bowel Movements 1 Microbiology Date/Time Source Procedure Growth Status 08/10/19 11:06 Nasopharynx Coronavirus COVID-19 PCR ([facility]) - Final Complete 08/09/19 16:30 Sputum Gram Stain - Final Resulted 08/09/19 16:30 Sputum Culture - Preliminary Providencia Stuartii Gram Negative Bacillus 2 Gram Negative Bacillus 3 Streptococcus Group G Resulted 08/09/19 19:00 Stool Clostridium difficile Toxin Assay - Final Complete Laboratory Tests 08/11/19 12:23: POC Whole Blood Glucose [Pending] 08/11/19 17:40: POC Whole Blood Glucose [Pending] 08/11/19 23:25: POC Whole Blood Glucose 173H 08/12/19 03:25: White Blood Count 27.7*H, Red Blood Count 3.86L, Hemoglobin 10.7L, Hematocrit 34.0L, Mean Corpuscular Volume 88, Mean Corpuscular Hemoglobin 27.6, Mean Corpuscular Hemoglobin Concent 31.4L, Red Cell Distribution Width 16.9H, Platelet Count 522H, Mean Platelet Volume 5.3L, Neutrophils (%) (Auto) , Lymphocytes (%) (Auto) , Monocytes (%) (Auto) , Eosinophils (%) (Auto) , Basophils (%) (Auto) , Differential Total Cells Counted 100, Neutrophils % ( Manual) 80H, Lymphocytes % (Manual) 9L, Monocytes % (Manual) 5, Eosinophils % ( Manual) 6H, Basophils % (Manual) 0, Band Neutrophils 0, Platelet Estimate IncreasedH, Platelet Morphology Normal, Polychromasia 1+, Hypochromasia 1+, Anisocytosis 2+, Macrocytosis , Sodium Level 129L, Potassium Level 4.8, Chloride Level 96L, Carbon Dioxide Level 19L, Anion Gap 14, Blood Urea Nitrogen 144H, Creatinine 3.6H, Estimat Glomerular Filtration Rate 16.5, Glucose Level 182H, Calcium Level 8.8, Magnesium Level 4.4H, Iron Level 28L, Total Iron Binding Capacity 191L, Percent Iron Saturation 15, Unsaturated Iron Binding 163 08/12/19 05:43: POC Whole Blood Glucose 190H Current Medications Medications (Trade) Dose Ordered Sig/Leonel Route PRN Reason Start Time Stop Time Status Last Admin Dose Admin Acetaminophen (Tylenol) 650 mg Q4H PRN GT Mild Pain / fever 08/09/19 05:30 09/08/19 05:29 Al Hydroxide/Mg Hydroxide (Mylanta) 30 ml FOUR TIMES A DAY PRN GT constipation 08/09/19 06:00 09/08/19 05:29 Ascorbic Acid (Vitamin C) 500 mg DAILY GT 08/09/19 09:00 09/08/19 08:59 08/12/19 08:56 Atorvastatin Calcium (Lipitor) 40 mg BEDTIME GT 08/09/19 21:00 11/07/19 20:59 08/11/19 20:21 Benazepril HCl (Lotensin) 20 mg DAILY GT 08/09/19 09:00 09/08/19 08:59 08/12/19 08:55 Clonidine HCl (Catapres Tab) 0.1 mg Q4H PRN ORAL SBP>150 08/12/19 06:45 11/10/19 06:44 Dextrose (Dextrose 50%) 25 ml Q30M PRN IV Hypoglycemia 08/09/19 07:30 11/07/19 07:29 Dextrose (Dextrose 50%) 50 ml Q30M PRN IV Hypoglycemia 08/09/19 07:30 11/07/19 07:29 Epoetin Andreas (Epoetin Andreas-EPBX(NON ESRD)) 8,000 unit WED-WED-WED SUBQ 08/09/19 21:00 11/07/19 20:59 08/11/19 21:01 Insulin Aspart (NovoLOG) Q6HR SUBQ 08/10/19 00:00 11/07/19 11:29 08/12/19 06:02 Lansoprazole (Prevacid) 30 mg DAILY GT 08/09/19 09:00 09/08/19 08:59 08/12/19 08:56 Linezolid (Zyvox) 600 mg EVERY 12 HOURS GT 08/11/19 11:00 08/16/19 10:59 08/12/19 08:56 Loperamide HCl (Imodium) 2 mg Q4H PRN GT Diarrhea 08/09/19 08:00 09/08/19 07:59 Metoprolol Tartrate (Lopressor) 200 mg Q12HR GT 08/09/19 09:00 11/07/19 08:59 08/12/19 08:56 Minoxidil (Loniten) 5 mg DAILY GT 08/09/19 09:00 11/07/19 08:59 08/12/19 08:56 Multivitamins (Multivitamins W/ Minerals 15ml Liquid) 15 ml DAILY GT 08/09/19 09:00 09/08/19 08:59 08/12/19 08:54 Piperacillin Sod/ Tazobactam Sod 3.375 gm/Sodium Chloride 110 ml @ 27.5 mls/hr Q12H IVPB 08/09/19 06:00 08/16/19 05:59 08/12/19 08:54 Potassium Chloride (K-Dur) 20 meq DAILY GT 08/09/19 09:00 11/07/19 08:59 08/12/19 08:55 Sodium Chloride 1,000 ml @ 50 mls/hr Q20H IV 08/10/19 06:00 09/08/19 05:59 08/11/19 17:43 Vitamin B Complex/ Vit C/Folic Acid (Nephrovite) 1 tab DAILY GT 08/09/19 09:00 09/08/19 08:59 08/12/19 08:55 Vitamin D (Vitamin D) 1,000 intlu DAILY GT 08/09/19 09:00 09/08/19 08:59 08/12/19 08:55 Zinc Oxide (Zinc Oxide) 1 applic BID TOPIC 08/10/19 18:00 11/08/19 17:59 08/12/19 08:57 Assessment/Plan Assessment/Plan Pulmonary Progress Note Assessment/Plan: IMPRESSION: 1. Profound anemia. 2. Possible GI bleed. 3. Leukocytosis. 4. Probable sepsis. + BCX 5. Acute on chronic renal failure. 6. Hyponatremia. 7. Severe protein-calorie malnutrition. 8. Significantly elevated C-reactive protein concerning for infectious etiology. 9. Tracheostomy, G-tube. 10. Ventilator dependence. PLAN care noted on vent monitor sodium monitor renal function iv antibiotics check cultures care noted and reviewed impression, plan, and exam edited and reviewed in detail care discussed with RN Subjective ROS Limited/Unobtainable: Yes Allergies: Coded Allergies: No Known Allergies (Unverified , 06/10/19) Subjective remains ill on ventilatory support Objective Vital Signs Noted Laboratory Tests Noted White Blood Count 25.5*H, Red Blood Count 3.66L, Hemoglobin 10.2L, Hematocrit 32.2L, Mean Corpuscular Volume 88, Mean Corpuscular Hemoglobin 27.9, Mean Corpuscular Hemoglobin Concent 31.7L, Red Cell Distribution Width 16.9H, Platelet Count 473H, Mean Platelet Volume 5.5L, Neutrophils (%) (Auto) , Lymphocytes (%) (Auto) , Monocytes (%) (Auto) , Eosinophils (%) (Auto) , Basophils (%) (Auto) , Differential Total Cells Counted 100, Neutrophils % ( Manual) 72, Lymphocytes % (Manual) 10L, Monocytes % (Manual) 12H, Eosinophils % (Manual) 6H, Basophils % (Manual) 0, Band Neutrophils 0, Platelet Estimate Adequate, Platelet Morphology Normal, Hypochromasia 1+, Anisocytosis 1+, Sodium Level 125L, Potassium Level 4.8, Chloride Level 95L, Carbon Dioxide Level 21, Anion Gap 9, Blood Urea Nitrogen 138H, Creatinine 3.5H, Estimat Glomerular Filtration Rate 17.0, Glucose Level 182H, Calcium Level 8.9 08/11/19 05:42: POC Whole Blood Glucose [Pending] Height (Feet): 5 Height (Inches): 7.00 Weight (Pounds): 166 Objective GENERAL: Ill-appearing male, chronically debilitated. HEENT: Tracheostomy in midline. Questionable fullness in the submandibular region. LUNGS: Coarse breath sounds. CARDIAC: S1, S2. Regular rate and rhythm. ABDOMEN: Soft. G-tube. EXTREMITIES: With noted edema. NEUROLOGICAL: Poorly responsive, weak diffusely. Kenny Mccurdy MD Aug 12, 2019 09:09
[2019-08-12] MEDS ORDERED: NACL 3% IV ONE ×3 (09:45→15:45)
--- NOTE | 2019-08-12 09:48 | Nephrology Progress Note ---
Assessment/Plan Problem List: (1) UTI (urinary tract infection) (2) VRE (vancomycin-resistant Enterococci) infection (3) Hyponatremia (4) CKD (chronic kidney disease) stage 5, GFR less than 15 ml/min (5) Malnutrition (6) Anasarca (7) Decubitus skin ulcer (8) Anemia (9) Ventilator dependent (10) Right lower lobe pneumonia Plan small amount 3% saline, avoid free water, continue antibiotics Subjective ROS Limited/Unobtainable: Yes Objective Objective Last 24 Hour Vital Signs Date Time Temp Pulse Resp B/P (MAP) Pulse Ox O2 Delivery O2 Flow Rate FiO2 08/12/19 08:56 66 145/66 08/12/19 08:56 145/66 08/12/19 08:55 145/66 08/12/19 08:49 60 08/12/19 07:14 59 15 24 08/12/19 04:00 98.0 58 18 179/78 (111) 96 08/12/19 04:00 62 08/12/19 04:00 24 08/12/19 04:00 Mechanical Ventilator 08/12/19 02:54 57 16 24 08/12/19 00:00 Mechanical Ventilator 08/12/19 00:00 58 08/12/19 00:00 97.0 58 18 118/61 (80) 96 08/11/19 22:46 59 15 24 08/11/19 20:21 89 143/58 08/11/19 20:00 Mechanical Ventilator 08/11/19 20:00 97.5 89 18 143/58 (86) 96 08/11/19 20:00 24 08/11/19 19:29 64 16 24 08/11/19 19:25 60 08/11/19 16:00 Mechanical Ventilator 08/11/19 16:00 71 08/11/19 16:00 24 08/11/19 16:00 97.8 64 18 129/61 (83) 96 08/11/19 15:04 63 16 24 08/11/19 12:00 97.9 61 19 120/65 (83) 96 08/11/19 12:00 Mechanical Ventilator 08/11/19 12:00 24 08/11/19 11:42 60 08/11/19 11:25 70 18 24 Intake and Output 08/11/19 08/12/19 19:00 07:00 Intake Total 1402.5 ml 1250.0 ml Output Total 450 ml 350 ml Balance 952.5 ml 900.0 ml Free Water 200 ml IV Total 482.5 ml 710.0 ml Tube Feeding 540 ml 540 ml Other 180 ml Output Urine Total 450 ml 350 ml # Bowel Movements 1 Laboratory Tests 08/11/19 12:23: POC Whole Blood Glucose [Pending] 08/11/19 17:40: POC Whole Blood Glucose [Pending] 08/11/19 23:25: POC Whole Blood Glucose 173H 08/12/19 03:25: White Blood Count 27.7*H, Red Blood Count 3.86L, Hemoglobin 10.7L, Hematocrit 34.0L, Mean Corpuscular Volume 88, Mean Corpuscular Hemoglobin 27.6, Mean Corpuscular Hemoglobin Concent 31.4L, Red Cell Distribution Width 16.9H, Platelet Count 522H, Mean Platelet Volume 5.3L, Neutrophils (%) (Auto) , Lymphocytes (%) (Auto) , Monocytes (%) (Auto) , Eosinophils (%) (Auto) , Basophils (%) (Auto) , Differential Total Cells Counted 100, Neutrophils % ( Manual) 80H, Lymphocytes % (Manual) 9L, Monocytes % (Manual) 5, Eosinophils % ( Manual) 6H, Basophils % (Manual) 0, Band Neutrophils 0, Platelet Estimate IncreasedH, Platelet Morphology Normal, Polychromasia 1+, Hypochromasia 1+, Anisocytosis 2+, Macrocytosis , Sodium Level 129L, Potassium Level 4.8, Chloride Level 96L, Carbon Dioxide Level 19L, Anion Gap 14, Blood Urea Nitrogen 144H, Creatinine 3.6H, Estimat Glomerular Filtration Rate 16.5, Glucose Level 182H, Calcium Level 8.8, Magnesium Level 4.4H, Iron Level 28L, Total Iron Binding Capacity 191L, Percent Iron Saturation 15, Unsaturated Iron Binding 163 08/12/19 05:43: POC Whole Blood Glucose 190H Height (Feet): 5 Height (Inches): 7.00 Weight (Pounds): 168 General Appearance: lethargic EENT: other - on vent Neck: normal alignment Cardiovascular: regular rhythm Respiratory/Chest: rhonchi - bilaterally Abdomen: no organomegaly Extremities: moderate edema Neurologic: unresponsive Carmelo Frank MD Aug 12, 2019 09:48
[2019-08-12 12:00] VITALS: BP 140/55
--- NOTE | 2019-08-12 12:16 | NUR ---
CASE MANAGEMENT:REVIEW 08/12/19 SI: ANEMIA. GIB. SEPSIS. AC/CHR RENAL FAILURE TRACH/VENT/GTUBE. COVID (-) 08/09 VS: T 97 HR 62 RR 18 B/P 145/66 SATS 98% ON MECH VENT FIO2 24 LABS: WBC 27.7 NA 129 CL 96 CO2 19 BUN 144 CR 3.6 GLU 182 MG 4.4 STOOL OB: PENDING IS: LINEZOLID GT Q12H LIPITOR GT QHS IV ZOSYN Q12H INSULIN ASPART SUBQ Q6HRS EPOETIN SQ MWF K-DUR GT QD MINOXIDIL GT QD LOTENSIN GT QD LOPRESSOR GT Q12H : STEP DOWN UNIT DCP: FROM [facility] [place]
--- NOTE | 2019-08-12 14:47 | NUR ---
NURSE NOTES: Asystolic noted on the cardiac cath rn. Notified to Dr. Baker(ED) for pronounce the . came and checked the patient and flat EKG on the monitor and pronounced the time of at 2:47pm. Made Lacy charge nurse and Tessa,Stereo Plotter Operator aware. Lacy charge nurse called gretel Vasquez but did not answered the phone. Message left to call back. Addendum: 08/12/19 at 1505 by Britney Marshall RN wrong patient.
--- NOTE | 2019-08-12 15:41 | NUR ---
HAND-OFF: Report given to TAMICA Olvera. Pt remains stable.
[2019-08-12 16:00] VITALS: BP 126/66
--- NOTE | 2019-08-12 16:00 | NUR ---
NURSE NOTES: received patient report from min rn. patient is on bed asleep, on vent. not in acute distress. gtube running at prescribed rate. will follow plan of care.
--- NOTE | 2019-08-12 16:12 | General Progress Note ---
Assessment/Plan Assessment/Plan: Assessment - Anemia - Black stools, but patient on po Iron - stool OB pending - Renal failure - Sepsis / leukocytosis - Anasarca - resp failure, trach - dysphagia, GT - encephalopathy, contracted Recommendations - Check stool OB & C Diff --> negative - Iron panel noted - await stool OB - PPI - abx - supportive care Subjective Allergies: Coded Allergies: No Known Allergies (Unverified , 06/10/19) Subjective Above noted doing poorly persistent leukocytosis and renal failure Objective Last 24 Hour Vital Signs Date Time Temp Pulse Resp B/P (MAP) Pulse Ox O2 Delivery O2 Flow Rate FiO2 08/12/19 16:03 60 08/12/19 15:09 56 17 24 08/12/19 12:00 Mechanical Ventilator 08/12/19 12:00 24 08/12/19 12:00 97.1 60 18 140/55 (83) 99 08/12/19 12:00 60 08/12/19 11:16 60 15 24 08/12/19 08:56 66 145/66 08/12/19 08:56 145/66 08/12/19 08:55 145/66 08/12/19 08:49 60 08/12/19 08:00 Mechanical Ventilator 08/12/19 08:00 24 08/12/19 08:00 97.0 62 18 145/66 (92) 98 08/12/19 07:14 59 15 24 08/12/19 04:00 98.0 58 18 179/78 (111) 96 08/12/19 04:00 62 08/12/19 04:00 24 08/12/19 04:00 Mechanical Ventilator 08/12/19 02:54 57 16 24 08/12/19 00:00 Mechanical Ventilator 08/12/19 00:00 58 08/12/19 00:00 97.0 58 18 118/61 (80) 96 08/11/19 22:46 59 15 24 08/11/19 20:21 89 143/58 08/11/19 20:00 Mechanical Ventilator 08/11/19 20:00 97.5 89 18 143/58 (86) 96 08/11/19 20:00 24 08/11/19 19:29 64 16 24 08/11/19 19:25 60 Intake and Output 08/11/19 08/12/19 19:00 07:00 Intake Total 1402.5 ml 1250.0 ml Output Total 450 ml 350 ml Balance 952.5 ml 900.0 ml Free Water 200 ml IV Total 482.5 ml 710.0 ml Tube Feeding 540 ml 540 ml Other 180 ml Output Urine Total 450 ml 350 ml # Bowel Movements 1 Laboratory Tests 08/11/19 17:40: POC Whole Blood Glucose [Pending] 08/11/19 23:25: POC Whole Blood Glucose 173H 08/12/19 03:25: White Blood Count 27.7*H, Red Blood Count 3.86L, Hemoglobin 10.7L, Hematocrit 34.0L, Mean Corpuscular Volume 88, Mean Corpuscular Hemoglobin 27.6, Mean Corpuscular Hemoglobin Concent 31.4L, Red Cell Distribution Width 16.9H, Platelet Count 522H, Mean Platelet Volume 5.3L, Neutrophils (%) (Auto) , Lymphocytes (%) (Auto) , Monocytes (%) (Auto) , Eosinophils (%) (Auto) , Basophils (%) (Auto) , Differential Total Cells Counted 100, Neutrophils % ( Manual) 80H, Lymphocytes % (Manual) 9L, Monocytes % (Manual) 5, Eosinophils % ( Manual) 6H, Basophils % (Manual) 0, Band Neutrophils 0, Platelet Estimate IncreasedH, Platelet Morphology Normal, Polychromasia 1+, Hypochromasia 1+, Anisocytosis 2+, Macrocytosis , Sodium Level 129L, Potassium Level 4.8, Chloride Level 96L, Carbon Dioxide Level 19L, Anion Gap 14, Blood Urea Nitrogen 144H, Creatinine 3.6H, Estimat Glomerular Filtration Rate 16.5, Glucose Level 182H, Calcium Level 8.8, Magnesium Level 4.4H, Iron Level 28L, Total Iron Binding Capacity 191L, Percent Iron Saturation 15, Unsaturated Iron Binding 163 08/12/19 05:43: POC Whole Blood Glucose 190H 08/12/19 10:40: Stool Occult Blood [Pending] Height (Feet): 5 Height (Inches): 7.00 Weight (Pounds): 168 Objective Debilitated AA man NCAT (+) trach coarse BS RR abd distended, anasarca, (+) GT ext (+) edema contracted Ronny Mustafa MD Aug 12, 2019 16:12
--- NOTE | 2019-08-12 19:05 | NUR ---
NURSE NOTES: Received report from May Garcia RN. Patient asleep, afebrile and no respiratory distress. V paced on 5 lead radiation monitor. On [facility] vent P8, ac 16, TV 450, FiO2 25%, peep 5. With Right upper arm 20g IV line intact, patent and asymptomatic. On Nephro 45cc/hr x 20 hrs via GT intact and infusing well. Needs were attended. HOB elevated. Bed rails are up and wheels are locked. Call light within reach. Continue plan of care.
--- NOTE | 2019-08-12 19:11 | NUR ---
HAND-OFF: Report given to marino wright.
[2019-08-12 20:00] VITALS: BP 134/73
[2019-08-12] MEDS: Atorvastatin 20mg tab GT SCH (20:18)
[2019-08-13] VITALS: BP 136/57
--- NOTE | 2019-08-13 01:30 | NUR ---
NURSE NOTES: Pt was given bed bath,gown and linens were change. Wound care done. oral care done. Pt tolerated the activity without any discomfort. Continue to monitor the patient
[2019-08-13 04:00] VITALS: BP 142/61
[2019-08-13] MEDS: NovoLOG Insulin Flexpen SUBQ SCH ×3 (05:08→17:20)
[2019-08-13 06:00] LABS: ANION GAP 12 mmol/L (5-15); BLOOD UREA NITROGEN 145 mg/dL (7-18); CALCIUM 8.5 MG/DL (8.5-10.1); CARBON DIOXIDE 18 MMOL/L (21-32); CHLORIDE 99 MMOL/L (98-107); CREATININE 3.7 MG/DL (0.55-1.30); POTASSIUM 5.1 MMOL/L (3.5-5.1); SODIUM 129 MMOL/L (136-145)
--- NOTE | 2019-08-13 07:00 | NUR ---
HAND-OFF: Report given to TAMICA Madsen.
--- NOTE | 2019-08-13 07:00 | NUR ---
NURSE NOTES: Received report from TAMICA Mata. Pt in bed awake and obtunded. Side railsx2 up for safety. IV site in right upper arm and noted water filled blister around IV site. Will discontinue the IV and make a new IV site. G-tube site patent and intact and abdomen round and big noted. No residual noted from G-tube. HOB elevated with 30 degree. Side railsx3 up for safety. Call light within easy reach. F/C patent and asymptomatic. Will continue plan of care.
[2019-08-13 08:00] VITALS: BP 143/58
[2019-08-13] MEDS ORDERED: Tubing IV Secondary IV ONE (08:31)
[2019-08-13] MEDS: Nephrovite tab (Rena-Vite) GT SCH (08:40)
[2019-08-13] MEDS: Vitamin D 1000 IU Tab GT SCH (08:40)
[2019-08-13] MEDS: Multivitamins W/Minerals 15 ML UDC GT SCH (08:40)
[2019-08-13] MEDS: Ascorbic Acid 500mg tab GT SCH (08:40)
[2019-08-13] MEDS: Benazepril 10mg tab GT SCH (08:41)
[2019-08-13] MEDS: Metoprolol Tartrate 100mg tab GT SCH ×2 (08:41→21:00)
[2019-08-13] MEDS: Minoxidil 2.5mg tab GT SCH (08:42)
[2019-08-13] MEDS: Zinc Oxide Oint 2oz TOPIC SCH ×2 (08:42→17:22)
[2019-08-13] MEDS: Piperacillin/Tazobactam 3.375 GM in NS 110 ML IVPB SCH ×2 (08:55→19:50)
--- NOTE | 2019-08-13 09:09 | NUR ---
RD ASSESSMENT & RECOMMENDATIONS SEE CARE ACTIVITY FOR COMPLETE ASSESSMENT DAILY ESTIMATED NEEDS: Needs based on Renal, critical care, wound/ 61kg 22-28 kcals/kg 3468-3283 total kcals 1-1.25 (increase w/ renal improvement) g protein/kg 61-76 g total protein 20-25 mL/kg 5746-3208 total fluid mLs NUTRITION DIAGNOSIS: * Swallowing difficulty R/T respiratory failure, dysphagia as evidenced by trach/vent dep, PEG dep * Increased kcal/prot needs R/T wound healing as evidenced by admitted w/ multiple pressure injuries per photos, pending eval. CURRENT TF:Nepro @ 45ml/hr x 20 hrs ENTERAL NUTRITION RECOMMENDATIONS: NEPRO to 45ml/hr x 20 hrs to provide 900ml, 1620kcal, 73g prot, 654ml free water * Maintain current TF * HOB over 30 degrees/ water flush per MD ADDITIONAL RECOMMENDATIONS: * Per SNF: HT=63" JS=852 lbs (Vs EMR wt of 165lbs) -> obtain re-calibrated bedscale wt * Wound healing: add Nephrovite x 1 + Vit C 250mg QD + Garo 1pkt BID via GT * Monitor renal fxn and lytes, check phos level .
--- NOTE | 2019-08-13 11:51 | NUR ---
CASE MANAGEMENT:REVIEW 08/13/19 SI: ANEMIA. GIB. SEPSIS. AC/CHR RENAL FAILURE TRACH/VENT/GTUBE. COVID (-) 08/09 97.0 63 18 143/58 98% ON MECH VENT FIO2 24 NA+ 129 CO2 18 BUN 145 CREAT 3.7 BG 180 IS: LINEZOLID GT BID IV ZOSYN BID LOTENSIN GT QD LOPRESSOR GT BID NOVOLOG SQ Q6HR EPOETIN SQ MWF \: STEP DOWN UNIT DCP: FROM [facility]
--- NOTE | 2019-08-13 11:57 | NUR ---
*-* INSURANCE *-* UPDATED CLINICALS AND REVIEWS HAVE BEEN FAXED TO: [facility] P:[phone] F:[phone]
[2019-08-13 12:00] VITALS: BP 129/82
--- NOTE | 2019-08-13 12:26 | Infectious Diseases Prog Note ---
Assessment/Plan Assessment/Plan A: 1. Pneumonia with Pseudomonas, Providencia, Proteus, strep group G COVID19 X2 : negative 2. Renal failure. 3. Leukocytosis improving 4. Respiratory failure, Ventilator dependent 5. Anemia 6. Anasarca 7. 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 Continue Zosyn & Linezolid 2. We will follow up cultures and adjust antibiotics accordingly. Subjective ROS Limited/Unobtainable: Yes Constitutional: Denies: fever Allergies: Coded Allergies: No Known Allergies (Unverified , 06/10/19) Objective Last 24 Hour Vital Signs Date Time Temp Pulse Resp B/P (MAP) Pulse Ox O2 Delivery O2 Flow Rate FiO2 08/13/19 08:42 143/58 08/13/19 08:41 63 143/58 08/13/19 08:41 143/58 08/13/19 08:00 62 08/13/19 08:00 97.0 63 18 143/58 (86) 98 08/13/19 08:00 Mechanical Ventilator 08/13/19 08:00 24 08/13/19 07:05 63 17 24 08/13/19 04:00 97.2 61 18 142/61 (88) 99 08/13/19 04:00 24 08/13/19 04:00 Mechanical Ventilator 08/13/19 03:47 61 08/13/19 02:58 64 17 24 08/13/19 01:48 60 08/13/19 00:00 Mechanical Ventilator 08/13/19 00:00 97.5 58 18 136/57 (83) 99 08/12/19 22:23 60 16 24 08/12/19 20:18 61 134/73 08/12/19 20:00 24 08/12/19 20:00 Mechanical Ventilator 08/12/19 20:00 97.2 60 18 134/73 (93) 99 08/12/19 19:22 61 19 24 08/12/19 19:21 58 08/12/19 16:03 60 08/12/19 16:00 96.4 57 18 126/66 (86) 99 08/12/19 16:00 Mechanical Ventilator 08/12/19 16:00 24 08/12/19 15:09 56 17 24 Height (Feet): 5 Height (Inches): 7.00 Weight (Pounds): 168 HEENT: status post trach Respiratory/Chest: rhonchi - bilaterally, other - on ventilator Cardiovascular: normal rate Abdomen: soft, non tender, other - GT Genitourinary: other - Avalos catheter, scrotal edema Extremities: other - generalized edema Neurologic/Psychiatric: aphasia Laboratory Tests Test 08/12/19 16:53 08/13/19 03:58 08/13/19 04:51 08/13/19 11:17 POC Whole Blood Glucose Pending 165 MG/DL (74-106) H 171 MG/DL (74-106) H Sodium Level 129 MMOL/L (136-145) L Potassium Level 5.1 MMOL/L (3.5-5.1) Chloride Level 99 MMOL/L (98-107) Carbon Dioxide Level 18 MMOL/L (21-32) L Anion Gap 12 mmol/L (5-15) Blood Urea Nitrogen 145 mg/dL (7-18) H Creatinine 3.7 MG/DL (0.55-1.30) H Estimat Glomerular Filtration Rate 16.0 mL/min (>60) Glucose Level 180 MG/DL (74-106) H Calcium Level 8.5 MG/DL (8.5-10.1) Current Medications Medications (Trade) Dose Ordered Sig/Leonel Route PRN Reason Start Time Stop Time Status Last Admin Dose Admin Acetaminophen (Tylenol) 650 mg Q4H PRN GT Mild Pain / fever 08/09/19 05:30 09/08/19 05:29 Al Hydroxide/Mg Hydroxide (Mylanta) 30 ml FOUR TIMES A DAY PRN GT constipation 08/09/19 06:00 09/08/19 05:29 Ascorbic Acid (Vitamin C) 500 mg DAILY GT 08/09/19 09:00 09/08/19 08:59 08/13/19 08:40 Atorvastatin Calcium (Lipitor) 40 mg BEDTIME GT 08/09/19 21:00 11/07/19 20:59 08/12/19 20:18 Clonidine HCl (Catapres Tab) 0.1 mg Q4H PRN GT SBP>150 08/12/19 10:45 11/10/19 06:44 Dextrose (Dextrose 50%) 25 ml Q30M PRN IV Hypoglycemia 08/09/19 07:30 11/07/19 07:29 Dextrose (Dextrose 50%) 50 ml Q30M PRN IV Hypoglycemia 08/09/19 07:30 11/07/19 07:29 Epoetin Andreas (Epoetin Andreas-EPBX(NON ESRD)) 8,000 unit WED-WED-WED SUBQ 08/09/19 21:00 11/07/19 20:59 08/11/19 21:01 Insulin Aspart (NovoLOG) Q6HR SUBQ 08/10/19 00:00 11/07/19 11:29 08/13/19 05:08 Lansoprazole (Prevacid) 30 mg DAILY GT 08/09/19 09:00 09/08/19 08:59 08/13/19 08:42 Linezolid (Zyvox) 600 mg EVERY 12 HOURS GT 08/11/19 11:00 08/16/19 10:59 08/13/19 08:40 Loperamide HCl (Imodium) 2 mg Q4H PRN GT Diarrhea 08/09/19 08:00 09/08/19 07:59 Metoprolol Tartrate (Lopressor) 200 mg Q12HR GT 08/09/19 09:00 11/07/19 08:59 08/13/19 08:41 Minoxidil (Loniten) 5 mg DAILY GT 08/09/19 09:00 11/07/19 08:59 08/13/19 08:42 Multivitamins (Multivitamins W/ Minerals 15ml Liquid) 15 ml DAILY GT 08/09/19 09:00 09/08/19 08:59 08/13/19 08:40 Piperacillin Sod/ Tazobactam Sod 3.375 gm/Sodium Chloride 110 ml @ 27.5 mls/hr Q12H IVPB 08/09/19 06:00 08/16/19 05:59 08/13/19 08:55 Vitamin B Complex/ Vit C/Folic Acid (Nephrovite) 1 tab DAILY GT 08/09/19 09:00 09/08/19 08:59 08/13/19 08:40 Vitamin D (Vitamin D) 1,000 intlu DAILY GT 08/09/19 09:00 09/08/19 08:59 08/13/19 08:40 Zinc Oxide (Zinc Oxide) 1 applic BID TOPIC 08/10/19 18:00 11/08/19 17:59 08/13/19 08:42 Real De Leon MD Aug 13, 2019 12:26
--- NOTE | 2019-08-13 13:02 | General Progress Note ---
Assessment/Plan Assessment/Plan: Assessment - Anemia - Black stools, but patient on po Iron - stool OB (+) - Renal failure - Sepsis / leukocytosis - Anasarca - resp failure, trach - dysphagia, GT - encephalopathy, contracted Recommendations - Endoscopy tomorrow - no plans for colonoscopy - Iron panel noted - PPI - abx - supportive care Subjective Allergies: Coded Allergies: No Known Allergies (Unverified , 06/10/19) Subjective Above noted OB (+) stools noted H&H better d/w had EGD/Colon 6 mo ago at [facility] - no significant findings risk benefits of GI endoscopy discussed. agreed to EGD, but not repeat colonoscopy Objective Last 24 Hour Vital Signs Date Time Temp Pulse Resp B/P (MAP) Pulse Ox O2 Delivery O2 Flow Rate FiO2 08/13/19 08:42 143/58 08/13/19 08:41 63 143/58 08/13/19 08:41 143/58 08/13/19 08:00 62 08/13/19 08:00 97.0 63 18 143/58 (86) 98 08/13/19 08:00 Mechanical Ventilator 08/13/19 08:00 24 08/13/19 07:05 63 17 24 08/13/19 04:00 97.2 61 18 142/61 (88) 99 08/13/19 04:00 24 08/13/19 04:00 Mechanical Ventilator 08/13/19 03:47 61 08/13/19 02:58 64 17 24 08/13/19 01:48 60 08/13/19 00:00 Mechanical Ventilator 08/13/19 00:00 97.5 58 18 136/57 (83) 99 08/12/19 22:23 60 16 24 08/12/19 20:18 61 134/73 08/12/19 20:00 24 08/12/19 20:00 Mechanical Ventilator 08/12/19 20:00 97.2 60 18 134/73 (93) 99 08/12/19 19:22 61 19 24 08/12/19 19:21 58 08/12/19 16:03 60 08/12/19 16:00 96.4 57 18 126/66 (86) 99 08/12/19 16:00 Mechanical Ventilator 08/12/19 16:00 24 08/12/19 15:09 56 17 24 Intake and Output 08/12/19 08/13/19 19:00 07:00 Intake Total 1045.0 ml 650.0 ml Output Total 250 ml 300 ml Balance 795.0 ml 350.0 ml Free Water 100 ml IV Total 535.0 ml 110.0 ml Tube Feeding 360 ml 540 ml Other 50 ml Output Urine Total 250 ml 300 ml # Bowel Movements 3 3 Laboratory Tests 08/12/19 16:53: POC Whole Blood Glucose [Pending] 08/13/19 03:58: Sodium Level 129L, Potassium Level 5.1, Chloride Level 99, Carbon Dioxide Level 18L, Anion Gap 12, Blood Urea Nitrogen 145H, Creatinine 3.7H, Estimat Glomerular Filtration Rate 16.0, Glucose Level 180H, Calcium Level 8.5 08/13/19 04:51: POC Whole Blood Glucose 165H 08/13/19 11:17: POC Whole Blood Glucose 171H Height (Feet): 5 Height (Inches): 7.00 Weight (Pounds): 168 Objective Debilitated AA man NCAT (+) trach coarse BS RR abd distended, anasarca, (+) GT ext (+) edema contracted Ronny Mustafa MD Aug 13, 2019 13:02
--- NOTE | 2019-08-13 15:56 | Nephrology Progress Note ---
Assessment/Plan Problem List: (1) UTI (urinary tract infection) (2) VRE (vancomycin-resistant Enterococci) infection (3) Hyponatremia (4) CKD (chronic kidney disease) stage 5, GFR less than 15 ml/min (5) Malnutrition (6) Anasarca (7) Decubitus skin ulcer (8) Anemia (9) Ventilator dependent (10) Right lower lobe pneumonia Plan small amount 3% saline, avoid free water, continue antibiotics Subjective ROS Limited/Unobtainable: Yes Objective Objective Last 24 Hour Vital Signs Date Time Temp Pulse Resp B/P (MAP) Pulse Ox O2 Delivery O2 Flow Rate FiO2 08/13/19 15:05 64 17 24 08/13/19 12:00 59 08/13/19 12:00 97.0 59 18 129/82 (98) 98 08/13/19 12:00 Mechanical Ventilator 08/13/19 12:00 24 08/13/19 11:05 60 17 24 08/13/19 08:42 143/58 08/13/19 08:41 63 143/58 08/13/19 08:41 143/58 08/13/19 08:00 62 08/13/19 08:00 97.0 63 18 143/58 (86) 98 08/13/19 08:00 Mechanical Ventilator 08/13/19 08:00 24 08/13/19 07:05 63 17 24 08/13/19 04:00 97.2 61 18 142/61 (88) 99 08/13/19 04:00 24 08/13/19 04:00 Mechanical Ventilator 08/13/19 03:47 61 08/13/19 02:58 64 17 24 08/13/19 01:48 60 08/13/19 00:00 Mechanical Ventilator 08/13/19 00:00 97.5 58 18 136/57 (83) 99 08/12/19 22:23 60 16 24 08/12/19 20:18 61 134/73 08/12/19 20:00 24 08/12/19 20:00 Mechanical Ventilator 08/12/19 20:00 97.2 60 18 134/73 (93) 99 08/12/19 19:22 61 19 24 08/12/19 19:21 58 08/12/19 16:03 60 08/12/19 16:00 96.4 57 18 126/66 (86) 99 08/12/19 16:00 Mechanical Ventilator 08/12/19 16:00 24 Intake and Output 08/12/19 08/13/19 19:00 07:00 Intake Total 1045.0 ml 650.0 ml Output Total 250 ml 300 ml Balance 795.0 ml 350.0 ml Free Water 100 ml IV Total 535.0 ml 110.0 ml Tube Feeding 360 ml 540 ml Other 50 ml Output Urine Total 250 ml 300 ml # Bowel Movements 3 3 Laboratory Tests 08/12/19 16:53: POC Whole Blood Glucose [Pending] 08/13/19 03:58: Sodium Level 129L, Potassium Level 5.1, Chloride Level 99, Carbon Dioxide Level 18L, Anion Gap 12, Blood Urea Nitrogen 145H, Creatinine 3.7H, Estimat Glomerular Filtration Rate 16.0, Glucose Level 180H, Calcium Level 8.5 08/13/19 04:51: POC Whole Blood Glucose 165H 08/13/19 11:17: POC Whole Blood Glucose 171H Height (Feet): 5 Height (Inches): 7.00 Weight (Pounds): 168 General Appearance: lethargic Cardiovascular: regular rhythm Respiratory/Chest: lungs clear Extremities: moderate edema Neurologic: unresponsive Carmelo Frank MD Aug 13, 2019 15:56
[2019-08-13 16:00] VITALS: BP 133/71
[2019-08-13] MEDS ORDERED: NACL 3% IV ONE (17:00)
--- NOTE | 2019-08-13 18:48 | Pulmonology Progress Note ---
Subjective ROS Limited/Unobtainable: No Constitutional: Denies: fever Allergies: Coded Allergies: No Known Allergies (Unverified , 06/10/19) Objective Last 24 Hour Vital Signs Date Time Temp Pulse Resp B/P (MAP) Pulse Ox O2 Delivery O2 Flow Rate FiO2 08/13/19 16:00 24 08/13/19 16:00 59 08/13/19 16:00 Mechanical Ventilator 08/13/19 16:00 97.0 61 18 133/71 (91) 100 08/13/19 15:05 64 17 24 08/13/19 12:00 59 08/13/19 12:00 97.0 59 18 129/82 (98) 98 08/13/19 12:00 Mechanical Ventilator 08/13/19 12:00 24 08/13/19 11:05 60 17 24 08/13/19 08:42 143/58 08/13/19 08:41 63 143/58 08/13/19 08:41 143/58 08/13/19 08:00 62 08/13/19 08:00 97.0 63 18 143/58 (86) 98 08/13/19 08:00 Mechanical Ventilator 08/13/19 08:00 24 08/13/19 07:05 63 17 24 08/13/19 04:00 97.2 61 18 142/61 (88) 99 08/13/19 04:00 24 08/13/19 04:00 Mechanical Ventilator 08/13/19 03:47 61 08/13/19 02:58 64 17 24 08/13/19 01:48 60 08/13/19 00:00 Mechanical Ventilator 08/13/19 00:00 97.5 58 18 136/57 (83) 99 08/12/19 22:23 60 16 24 08/12/19 20:18 61 134/73 08/12/19 20:00 24 08/12/19 20:00 Mechanical Ventilator 08/12/19 20:00 97.2 60 18 134/73 (93) 99 08/12/19 19:22 61 19 24 08/12/19 19:21 58 Intake and Output 08/12/19 08/13/19 19:00 07:00 Intake Total 1045.0 ml 650.0 ml Output Total 250 ml 300 ml Balance 795.0 ml 350.0 ml Free Water 100 ml IV Total 535.0 ml 110.0 ml Tube Feeding 360 ml 540 ml Other 50 ml Output Urine Total 250 ml 300 ml # Bowel Movements 3 3 Laboratory Tests 08/13/19 03:58: Sodium Level 129L, Potassium Level 5.1, Chloride Level 99, Carbon Dioxide Level 18L, Anion Gap 12, Blood Urea Nitrogen 145H, Creatinine 3.7H, Estimat Glomerular Filtration Rate 16.0, Glucose Level 180H, Calcium Level 8.5 08/13/19 04:51: POC Whole Blood Glucose 165H 08/13/19 11:17: POC Whole Blood Glucose 171H Current Medications Medications (Trade) Dose Ordered Sig/Leonel Route PRN Reason Start Time Stop Time Status Last Admin Dose Admin Acetaminophen (Tylenol) 650 mg Q4H PRN GT Mild Pain / fever 08/09/19 05:30 09/08/19 05:29 Al Hydroxide/Mg Hydroxide (Mylanta) 30 ml FOUR TIMES A DAY PRN GT constipation 08/09/19 06:00 09/08/19 05:29 Ascorbic Acid (Vitamin C) 500 mg DAILY GT 08/09/19 09:00 09/08/19 08:59 08/13/19 08:40 Atorvastatin Calcium (Lipitor) 40 mg BEDTIME GT 08/09/19 21:00 11/07/19 20:59 08/12/19 20:18 Clonidine HCl (Catapres Tab) 0.1 mg Q4H PRN GT SBP>150 08/12/19 10:45 11/10/19 06:44 Dextrose (Dextrose 50%) 25 ml Q30M PRN IV Hypoglycemia 08/09/19 07:30 11/07/19 07:29 Dextrose (Dextrose 50%) 50 ml Q30M PRN IV Hypoglycemia 08/09/19 07:30 11/07/19 07:29 Epoetin Andreas (Epoetin Andreas-EPBX(NON ESRD)) 8,000 unit WED-WED-WED SUBQ 08/09/19 21:00 11/07/19 20:59 08/11/19 21:01 Insulin Aspart (NovoLOG) Q6HR SUBQ 08/10/19 00:00 11/07/19 11:29 08/13/19 17:20 Lansoprazole (Prevacid) 30 mg DAILY GT 08/09/19 09:00 09/08/19 08:59 08/13/19 08:42 Linezolid (Zyvox) 600 mg EVERY 12 HOURS GT 08/11/19 11:00 08/16/19 10:59 08/13/19 08:40 Loperamide HCl (Imodium) 2 mg Q4H PRN GT Diarrhea 08/09/19 08:00 09/08/19 07:59 Metoprolol Tartrate (Lopressor) 200 mg Q12HR GT 08/09/19 09:00 11/07/19 08:59 08/13/19 08:41 Minoxidil (Loniten) 5 mg DAILY GT 08/09/19 09:00 11/07/19 08:59 08/13/19 08:42 Multivitamins (Multivitamins W/ Minerals 15ml Liquid) 15 ml DAILY GT 08/09/19 09:00 09/08/19 08:59 08/13/19 08:40 Piperacillin Sod/ Tazobactam Sod 3.375 gm/Sodium Chloride 110 ml @ 27.5 mls/hr Q12H IVPB 08/09/19 06:00 08/16/19 05:59 08/13/19 08:55 Sodium Chloride 100 ml @ 25 mls/hr ONCE ONCE IV 08/13/19 17:00 08/13/19 20:59 08/13/19 17:22 Vitamin B Complex/ Vit C/Folic Acid (Nephrovite) 1 tab DAILY GT 08/09/19 09:00 09/08/19 08:59 08/13/19 08:40 Vitamin D (Vitamin D) 1,000 intlu DAILY GT 08/09/19 09:00 09/08/19 08:59 08/13/19 08:40 Zinc Oxide (Zinc Oxide) 1 applic BID TOPIC 08/10/19 18:00 11/08/19 17:59 08/13/19 17:22 Assessment/Plan Assessment/Plan Pulmonary Progress Note Assessment/Plan: IMPRESSION: 1. Profound anemia. 2. Possible GI bleed. 3. Worsening Leukocytosis. 4. Probable sepsis. + BCX 5. Acute on chronic renal failure. 6. Hyponatremia. 7. Severe protein-calorie malnutrition. 8. Significantly elevated C-reactive protein concerning for infectious etiology. 9. Tracheostomy, G-tube. 10. Ventilator dependence. PLAN care noted on vent monitor sodium monitor renal function iv antibiotics check cultures care noted and reviewed impression, plan, and exam edited and reviewed in detail care discussed with RN Subjective ROS Limited/Unobtainable: Yes Allergies: Coded Allergies: No Known Allergies (Unverified , 06/10/19) Subjective remains ill on ventilatory support Objective Vital Signs Noted Laboratory Tests Noted Height (Feet): 5 Height (Inches): 7.00 Weight (Pounds): 166 Objective GENERAL: Ill-appearing male, chronically debilitated. HEENT: Tracheostomy in midline. Questionable fullness in the submandibular region. LUNGS: Coarse breath sounds. CARDIAC: S1, S2. Regular rate and rhythm. ABDOMEN: Soft. G-tube. EXTREMITIES: With noted edema. NEUROLOGICAL: Poorly responsive, weak diffusely. Kenny Mccurdy MD Aug 13, 2019 18:48
--- NOTE | 2019-08-13 19:19 | NUR ---
HAND-OFF: Report given to Report given to Christian Steinberg RN. Pt remains stable.
--- NOTE | 2019-08-13 19:30 | NUR ---
NURSE NOTES: Received report from TAMICA Tan. Pt is resting on the bed and obtunded and able to response to tactile and pain stimuli. Trach to Vent dependent and setting with AC: 15, T: 450, P:5, FiO2 24% and SaO2 99% noted. Given tracheal and oral suction and provide oral care. Iv site intact and no sign of infiltration noted. Pt has G-tube and on running with Nephro @ 45cc/hr and no residual noted. Pt has Avalos cath and patent. IV site intact and no sign of infiltration noted. Noted swelling on both legs and Both arm and hands. On environmental monitoring specialist with V-pacing and HR: 60's. Pt scheduled EGD tomorrow. Will do MN NPO. Placed fall precaution. Will continue to care plan.
[2019-08-13 20:00] VITALS: BP 117/78
[2019-08-13] MEDS: Atorvastatin 20mg tab GT SCH (21:03)
[2019-08-14] VITALS (10 sets, daily range): BP systolic 89–137; BP diastolic 41–62
[2019-08-14] MEDS: NovoLOG Insulin Flexpen SUBQ SCH ×5 (06:00→23:29)
[2019-08-14 06:05] LABS: HEMATOCRIT 28.1 % (42.0-52.0); HEMOGLOBIN 8.8 G/DL (14.2-18.0); MEAN CORPUSCULAR VOLUME 88 FL (80-99); PLATELET COUNT 389 K/UL (150-450); RED CELL DISTRIBUTION WIDTH 17.1 % (11.6-14.8)
[2019-08-14 06:08] LABS: WHITE BLOOD COUNT 28.4 K/UL (4.8-10.8)
[2019-08-14 06:09] LABS: INR 1.2 (0.9-1.1)
[2019-08-14 06:15] LABS: ALANINE AMINOTRANSFERASE 20 U/L (12-78); ALBUMIN 1.4 G/DL (3.4-5.0); ALBUMIN/GLOBULIN RATIO 0.3 (1.0-2.7); ALKALINE PHOSPHATASE 153 U/L (46-116); ANION GAP 12 mmol/L (5-15); ASPARTATE AMINO TRANSFERASE 22 U/L (15-37); BILIRUBIN,TOTAL 0.3 MG/DL (0.2-1.0); BLOOD UREA NITROGEN 157 mg/dL (7-18); CALCIUM 8.2 MG/DL (8.5-10.1); CARBON DIOXIDE 20 MMOL/L (21-32); CHLORIDE 102 MMOL/L (98-107); POTASSIUM 4.9 MMOL/L (3.5-5.1); SODIUM 133 MMOL/L (136-145)
--- NOTE | 2019-08-14 07:11 | NUR ---
HAND-OFF: Report given to TAMICA Tan. Pt is sleeping on the bed. Still noted black tarry stool. Pt scheduled EGD @10am today. Endorsed incoming nurse.
--- NOTE | 2019-08-14 07:11 | NUR ---
NURSE NOTES: Received report from Christian Steinberg RN. Pt in bed awake and confused. IV site right hand 22G TKO patent and asymptomatic. HOB elevated with 30 degree. Call light within easy reach. Bed in lowest position and locked. G-tube patent and intact and feeding on hold as ordered. Trach patent and connected to vent setting AC 15,450,25% and peep of 5. Sating 100% on current vent setting. Will continue to plan of care.
--- NOTE | 2019-08-14 08:25 | General Progress Note ---
Assessment/Plan Assessment/Plan: IMPRESSION: 1. anemia. 2. GI bleed. 3. Leukocytosis. 4. Probable sepsis. + BCX 5. Acute on chronic renal failure. 6. Hyponatremia. 7. Severe protein-calorie malnutrition. 8. Significantly elevated C-reactive protein concerning for infectious etiology. 9. Tracheostomy, G-tube. 10. Ventilator dependence. PLAN care noted on vent monitor sodium monitor renal function iv antibiotics and monitor wbc multiple + cultures care noted and reviewed remains ill and not yet able to transfer impression, plan, and exam edited and reviewed in detail care discussed with RN Subjective ROS Limited/Unobtainable: Yes Allergies: Coded Allergies: No Known Allergies (Unverified , 06/10/19) Subjective remains ill on vent weekend events noted Objective Last 24 Hour Vital Signs Date Time Temp Pulse Resp B/P (MAP) Pulse Ox O2 Delivery O2 Flow Rate FiO2 08/14/19 07:09 60 15 25 08/14/19 07:07 97.1 60 18 118/41 (66) 100 08/14/19 04:00 97.4 61 18 106/43 (64) 100 08/14/19 04:00 24 08/14/19 04:00 Mechanical Ventilator 08/14/19 03:34 60 08/14/19 03:30 61 17 25 08/14/19 00:00 24 08/14/19 00:00 97.0 61 18 137/50 (79) 100 08/14/19 00:00 Mechanical Ventilator 08/13/19 23:30 60 08/13/19 23:20 61 15 25 08/13/19 21:00 60 109/55 08/13/19 20:00 24 08/13/19 20:00 97.0 60 18 117/78 (91) 100 08/13/19 20:00 Mechanical Ventilator 08/13/19 19:21 59 08/13/19 19:20 60 15 24 08/13/19 16:00 24 08/13/19 16:00 59 08/13/19 16:00 Mechanical Ventilator 08/13/19 16:00 97.0 61 18 133/71 (91) 100 08/13/19 15:05 64 17 24 08/13/19 12:00 59 08/13/19 12:00 97.0 59 18 129/82 (98) 98 7/5/20 12:00 Mechanical Ventilator 08/13/19 12:00 24 08/13/19 11:05 60 17 24 08/13/19 08:42 143/58 08/13/19 08:41 63 143/58 08/13/19 08:41 143/58 Intake and Output 08/13/19 08/14/19 19:00 07:00 Intake Total 725.0 ml 335.0 ml Output Total 250 ml 150 ml Balance 475.0 ml 185.0 ml IV Total 135.0 ml 110.0 ml Tube Feeding 540 ml 225 ml Other 50 ml Output Urine Total 250 ml 150 ml # Bowel Movements 2 2 Laboratory Tests 08/13/19 11:17: POC Whole Blood Glucose 171H 08/14/19 04:50: White Blood Count 28.4*H, Red Blood Count 3.20L, Hemoglobin 8.8L, Hematocrit 28.1L, Mean Corpuscular Volume 88, Mean Corpuscular Hemoglobin 27.6, Mean Corpuscular Hemoglobin Concent 31.4L, Red Cell Distribution Width 17.1H, Platelet Count 389, Mean Platelet Volume 5.3L, Neutrophils (%) (Auto) , Lymphocytes (%) (Auto) , Monocytes (%) (Auto) , Eosinophils (%) (Auto) , Basophils (%) (Auto) , Neutrophils % (Manual) [Pending], Lymphocytes % (Manual) [Pending], Platelet Estimate [Pending], Platelet Morphology [Pending], Prothrombin Time 13.3H, Prothromb Time International Ratio 1.2H, Activated Partial Thromboplast Time 28, Sodium Level 133L, Potassium Level 4.9, Chloride Level 102, Carbon Dioxide Level 20L, Anion Gap 12, Blood Urea Nitrogen 157H, Creatinine 4.0H, Estimat Glomerular Filtration Rate 14.6, Glucose Level 145H, Calcium Level 8.2L, Total Bilirubin 0.3, Aspartate Amino Transf (AST/SGOT) 22, Alanine Aminotransferase (ALT/SGPT) 20, Alkaline Phosphatase 153H, Total Protein 6.2L, Albumin 1.4L, Globulin 4.8, Albumin/Globulin Ratio 0.3L Height (Feet): 5 Height (Inches): 7.00 Weight (Pounds): 168 Objective GENERAL: Ill-appearing male, chronically debilitated. HEENT: Tracheostomy in midline. Questionable fullness in the submandibular region. LUNGS: Coarse breath sounds. CARDIAC: S1, S2. Regular rate and rhythm. ABDOMEN: Soft. G-tube. EXTREMITIES: With noted edema. NEUROLOGICAL: Poorly responsive, weak diffusely. Kain Ramirez MD Aug 14, 2019 08:25
[2019-08-14] MEDS: Piperacillin/Tazobactam 3.375 GM in NS 110 ML IVPB SCH ×2 (08:32→19:58)
[2019-08-14] MEDS ORDERED: DiphenhydrAMINE 50mg/ml Inj IVP PRN (08:45)
[2019-08-14] MEDS ORDERED: Atropine Sulfate 0.4mg/ml inj IVP PRN (08:45)
[2019-08-14] MEDS ORDERED: Midazolam 2mg/2ml Inj IVP PRN (08:45)
--- NOTE | 2019-08-14 08:51 | Anethesia Preoperative Eval ---
Anesthesia Pre-op PMH/ROS General Date of Evaluation: Aug 14, 2019 Time of Evaluation: 08:44 Anesthesiologist: louise ASA Score: ASA 4 Mallampati Score Class I : Soft palate, uvula, fauces, pillars visible Class II: Soft palate, uvula, fauces visible Class III: Soft palate, base of uvula visible Class IV: Only hard plate visible Mallampati Classification: Class II Surgeon: shruti Diagnosis: anemia Surgical Procedure: egd Anesthesia History: none Social History: smoking - nonsmoker Allergies: Coded Allergies: No Known Allergies (Unverified , 06/10/19) Medications: see eMAR Patient NPO?: Yes Past Medical History Cardiovascular: Reports: HTN, other - chf, pacemaker; Denies: CAD, AL, valve dz, arrhythmia Pulmonary: Reports: asthma, other - tracheostomy, ventilator dependent; Denies: COPD, DIMITRI Gastrointestinal/Genitourinary: Reports: ESRD, other - g-tube, malnutrition, renal failure on hd, anasarca, uti; Denies: GERD, CRI Neurologic/Psychiatric: Reports: CVA, other - subdural hematoma; Denies: dementia, depression/anxiety, TIA Endocrine: Reports: DM; Denies: hypothyroidism, steroids, other HEENT: Denies: cataract (L), cataract (R), glaucoma, [place] (L), [place] (R), other Hematology/Immune: Reports: anemia, other - vre Musculoskeletal/Integumentary: Denies: OA, RA, DJD, DDD, edema, other Anesthesia Pre-op Phys. Exam Physician Exam Last Vital Signs Date Time Temp Pulse Resp B/P (MAP) Pulse Ox O2 Delivery O2 Flow Rate FiO2 08/14/19 07:09 60 15 25 08/14/19 07:07 97.1 118/41 (66) 100 08/14/19 04:00 Mechanical Ventilator 08/09/19 00:50 5.0 Constitutional: NAD Neurologic: other - cva Cardiovascular: RRR Respiratory: other - tracheostomy, ventilator dependent Gastrointestinal: other - g-tube Airway Exam Mallampati Score: Class II MO: limited Neck: tracheostomy TMD: 2fb ROM: limited Teeth: missing Anesthesia Pre-op A/P Labs Microbiology Date/Time Source Procedure Growth Status 08/08/19 19:50 Blood Blood Culture - Final Staphylococcus Haemolyticus Complete 08/10/19 11:06 Nasopharynx Coronavirus COVID-19 PCR ([facility]) - Final Complete 08/09/19 19:00 Stool Clostridium difficile Toxin Assay - Final Complete 08/08/19 19:35 Urine,Clean Catch Urine Culture - Final Enterococcus Faecium - Vre Complete 08/08/19 20:57 Rectum - Final NO CARBAPENEM-RESISTANT ENTEROBACTERI... Complete Hematology Test 08/14/19 04:50 White Blood Count 28.4 K/UL (4.8-10.8) *H Red Blood Count 3.20 M/UL (4.70-6.10) L Hemoglobin 8.8 G/DL (14.2-18.0) L Hematocrit 28.1 % (42.0-52.0) L Mean Corpuscular Volume 88 FL (80-99) Mean Corpuscular Hemoglobin 27.6 PG (27.0-31.0) Mean Corpuscular Hemoglobin Concent 31.4 G/DL (32.0-36.0) L Red Cell Distribution Width 17.1 % (11.6-14.8) H Platelet Count 389 K/UL (150-450) Mean Platelet Volume 5.3 FL (6.5-10.1) L Neutrophils (%) (Auto) % (45.0-75.0) Lymphocytes (%) (Auto) % (20.0-45.0) Monocytes (%) (Auto) % (1.0-10.0) Eosinophils (%) (Auto) % (0.0-3.0) Basophils (%) (Auto) % (0.0-2.0) Differential Total Cells Counted 100 Neutrophils % (Manual) 82 % (45-75) H Lymphocytes % (Manual) 10 % (20-45) L Monocytes % (Manual) 3 % (1-10) Eosinophils % (Manual) 5 % (0-3) H Basophils % (Manual) 0 % (0-2) Band Neutrophils 0 % (0-8) Platelet Estimate Adequate Platelet Morphology Normal Polychromasia 1+ Hypochromasia 1+ Anisocytosis 1+ Coagulation Test 08/14/19 04:50 Prothrombin Time 13.3 SEC (9.30-11.50) H Prothromb Time International Ratio 1.2 (0.9-1.1) H Activated Partial Thromboplast Time 28 SEC (23-33) Chemistry Test 08/13/19 11:17 08/14/19 04:50 POC Whole Blood Glucose 171 MG/DL (74-106) H Sodium Level 133 MMOL/L (136-145) L Potassium Level 4.9 MMOL/L (3.5-5.1) Chloride Level 102 MMOL/L (98-107) Carbon Dioxide Level 20 MMOL/L (21-32) L Anion Gap 12 mmol/L (5-15) Blood Urea Nitrogen 157 mg/dL (7-18) H Creatinine 4.0 MG/DL (0.55-1.30) H Estimat Glomerular Filtration Rate 14.6 mL/min (>60) Glucose Level 145 MG/DL (74-106) H Calcium Level 8.2 MG/DL (8.5-10.1) L Total Bilirubin 0.3 MG/DL (0.2-1.0) Aspartate Amino Transf (AST/SGOT) 22 U/L (15-37) Alanine Aminotransferase (ALT/SGPT) 20 U/L (12-78) Alkaline Phosphatase 153 U/L (46-116) H Total Protein 6.2 G/DL (6.4-8.2) L Albumin 1.4 G/DL (3.4-5.0) L Globulin 4.8 g/dL Albumin/Globulin Ratio 0.3 (1.0-2.7) L Risk Assessment & Plan Assessment: [email or web address] Plan: mac Status Change Before Surgery: No Pre-Antibiotics Drug: Juliette Dent MD Aug 14, 2019 08:51
[2019-08-14] MEDS: Nephrovite tab (Rena-Vite) GT SCH (09:00)
[2019-08-14] MEDS: Metoprolol Tartrate 100mg tab GT SCH ×2 (09:00→20:11)
[2019-08-14] MEDS: Minoxidil 2.5mg tab GT SCH (09:00)
[2019-08-14] MEDS: Ascorbic Acid 500mg tab GT SCH (09:00)
[2019-08-14] MEDS: Zinc Oxide Oint 2oz TOPIC SCH ×2 (09:00→18:04)
[2019-08-14] MEDS: Multivitamins W/Minerals 15 ML UDC GT SCH (09:00)
[2019-08-14] MEDS: Vitamin D 1000 IU Tab GT SCH (09:00)
[2019-08-14] MEDS ORDERED: Lidocaine 1% MPF 10mg/ml 5ml ONE (10:00)
--- NOTE | 2019-08-14 10:06 | General Progress Note ---
Assessment/Plan Assessment/Plan: Assessment - Anemia - Black stools, but patient on po Iron - stool OB (+) - Renal failure - Sepsis / leukocytosis - Anasarca - resp failure, trach - dysphagia, GT - encephalopathy, contracted Recommendations - Endoscopy tomorrow - no plans for colonoscopy - Iron panel noted - PPI - abx - supportive care Subjective Allergies: Coded Allergies: No Known Allergies (Unverified , 06/10/19) Subjective Above noted OB (+) stools noted H&H better d/w had EGD/Colon 6 mo ago at [facility] - no significant findings risk benefits of GI endoscopy discussed. agreed to EGD, but not repeat colonoscopy Objective Last 24 Hour Vital Signs Date Time Temp Pulse Resp B/P (MAP) Pulse Ox O2 Delivery O2 Flow Rate FiO2 08/14/19 09:09 61 122/52 (75) 08/14/19 09:00 60 118/41 08/14/19 09:00 118/41 08/14/19 08:00 64 08/14/19 08:00 24 08/14/19 07:09 60 15 25 08/14/19 07:07 97.1 60 18 118/41 (66) 100 08/14/19 04:00 97.4 61 18 106/43 (64) 100 08/14/19 04:00 24 08/14/19 04:00 Mechanical Ventilator 08/14/19 03:34 60 08/14/19 03:30 61 17 25 08/14/19 00:00 24 08/14/19 00:00 97.0 61 18 137/50 (79) 100 08/14/19 00:00 Mechanical Ventilator 08/13/19 23:30 60 08/13/19 23:20 61 15 25 08/13/19 21:00 60 109/55 08/13/19 20:00 24 08/13/19 20:00 97.0 60 18 117/78 (91) 100 08/13/19 20:00 Mechanical Ventilator 08/13/19 19:21 59 08/13/19 19:20 60 15 24 08/13/19 16:00 24 08/13/19 16:00 59 08/13/19 16:00 Mechanical Ventilator 08/13/19 16:00 97.0 61 18 133/71 (91) 100 08/13/19 15:05 64 17 24 08/13/19 12:00 59 08/13/19 12:00 97.0 59 18 129/82 (98) 98 08/13/19 12:00 Mechanical Ventilator 08/13/19 12:00 24 08/13/19 11:05 60 17 24 Intake and Output 08/13/19 08/14/19 19:00 07:00 Intake Total 725.0 ml 335.0 ml Output Total 250 ml 150 ml Balance 475.0 ml 185.0 ml IV Total 135.0 ml 110.0 ml Tube Feeding 540 ml 225 ml Other 50 ml Output Urine Total 250 ml 150 ml # Bowel Movements 2 2 Laboratory Tests 08/13/19 11:17: POC Whole Blood Glucose 171H 08/14/19 04:50: White Blood Count 28.4*H, Red Blood Count 3.20L, Hemoglobin 8.8L, Hematocrit 28.1L, Mean Corpuscular Volume 88, Mean Corpuscular Hemoglobin 27.6, Mean Corpuscular Hemoglobin Concent 31.4L, Red Cell Distribution Width 17.1H, Platelet Count 389, Mean Platelet Volume 5.3L, Neutrophils (%) (Auto) , Lymphocytes (%) (Auto) , Monocytes (%) (Auto) , Eosinophils (%) (Auto) , Basophils (%) (Auto) , Differential Total Cells Counted 100, Neutrophils % ( Manual) 82H, Lymphocytes % (Manual) 10L, Monocytes % (Manual) 3, Eosinophils % ( Manual) 5H, Basophils % (Manual) 0, Band Neutrophils 0, Platelet Estimate Adequate, Platelet Morphology Normal, Polychromasia 1+, Hypochromasia 1+, Anisocytosis 1+, Prothrombin Time 13.3H, Prothromb Time International Ratio 1.2H , Activated Partial Thromboplast Time 28, Sodium Level 133L, Potassium Level 4.9 , Chloride Level 102, Carbon Dioxide Level 20L, Anion Gap 12, Blood Urea Nitrogen 157H, Creatinine 4.0H, Estimat Glomerular Filtration Rate 14.6, Glucose Level 145H, Calcium Level 8.2L, Total Bilirubin 0.3, Aspartate Amino Transf (AST/SGOT) 22, Alanine Aminotransferase (ALT/SGPT) 20, Alkaline Phosphatase 153H, Total Protein 6.2L, Albumin 1.4L, Globulin 4.8, Albumin/ Globulin Ratio 0.3L Height (Feet): 5 Height (Inches): 7.00 Weight (Pounds): 168 Objective Debilitated AA man NCAT (+) trach coarse BS RR abd distended, anasarca, (+) GT ext (+) edema contracted Ronny Mustafa MD Aug 14, 2019 10:06
--- NOTE | 2019-08-14 10:07 | Pre-Procedure Note/Attestation ---
Pre-Procedure Note/Attestation Complete Prior to Procedure Planned Procedure: not applicable Procedure Narrative: egd Indications for Procedure Pre-Operative Diagnosis: GIB Attestation I attest that I discussed the nature of the procedure; its benefits; risks and complications; and alternatives (and the risks and benefits of such alternatives ), prior to the procedure, with the patient (or the patient's legal electroplating sales representative). I attest that, if there was a reasonable possibility of needing a blood transfusion, the patient (or the patient's legal electroplating sales representative) was given the [facility] standardized written summary, pursuant to the Jim Kait Blood Safety Act ([place] Health and Safety Code # 1645, as amended). I attest that I re-evaluated the patient just prior to the surgery and that there has been no change in the patient's H&P, except as documented below: Ronny Mustafa MD Aug 14, 2019 10:07
--- NOTE | 2019-08-14 10:30 | NUR ---
NURSE NOTES: Noted hypotension 89/43, P [address] Mustafa ordered to resume previous tube feeding with Nephro 45ml/hr. Made Dr. Ramirez aware and IV NS 250ml bolus given. Will follow up the v/s after IV bolus done
--- NOTE | 2019-08-14 10:42 | Immediate Post-Op Evaluation ---
Immediate Post-Op Evalulation Immediate Post-Op Evalulation Procedure: egd w/bx Date of Evaluation: Aug 14, 2019 Time of Evaluation: 10:36 IV Fluids: 100ml 0.9ns Blood Products: none Estimated Blood Loss: negligible Blood Pressure Systolic: 107 Blood Pressure Diastolic: 50 Pulse Rate: 61 Respiratory Rate: 15 O2 Sat by Pulse Oximetry: 100 Temperature (Fahrenheit): 97.2 Pain Score (1-10): 0 Nausea: No Vomiting: No Complications none Patient Status: awake, reacts, patent Hydration Status: adequate Drug: Juliette Dent MD Aug 14, 2019 10:42
--- NOTE | 2019-08-14 10:43 | 48 Hour Post Anesthesia Eval ---
Post Anesthesia Evaluation Procedure: egd w/bx Date of Evaluation: Aug 14, 2019 Time of Evaluation: 10:38 Blood Pressure Systolic: 122 0: 52 Pulse Rate: 61 Respiratory Rate: 15 Temperature (Fahrenheit): 97.2 O2 Sat by Pulse Oximetry: 100 Airway: patent Nausea: No Vomiting: No Pain Intensity: 0 Hydration Status: adequate Cardiopulmonary Status: stable Mental Status/LOC: patient returned to baseline Post-Anesthesia Complications: none Follow-up care needed: N/A Juliette Holm MD Aug 14, 2019 10:43
--- NOTE | 2019-08-14 10:50 | NUR ---
NURSE NOTES: Noted BP 117/52, P 64 after IV NS 250ml bolus given. Pt awake and spontaneously open his eyes. Will continue plan of care.
--- NOTE | 2019-08-14 10:52 | NUR ---
*-* INSURANCE *-* UPDATED CLINICALS HAVE BEEN FAXED TO: [facility] P:[phone] F:[phone]
--- NOTE | 2019-08-14 11:15 | Infectious Diseases Prog Note ---
Assessment/Plan Assessment/Plan antibiotics : linezolid, zosyn A 1. VRE UTI 2. + blood cultures with coag neg staph likely contaminated 3. respiratory failure 4. leucocytosis improving 5. group G streptococcus, providencia, pseudomonas, serratia pneumonia COVID 19 test negative x 2 P 1. continue linezolid 3 more days 2. continue zosyn 4 more days 3. will follow up cultures Subjective ROS Limited/Unobtainable: Yes Allergies: Coded Allergies: No Known Allergies (Unverified , 06/10/19) Objective Last 24 Hour Vital Signs Date Time Temp Pulse Resp B/P (MAP) Pulse Ox O2 Delivery O2 Flow Rate FiO2 08/14/19 10:46 62 17 25 08/14/19 10:43 61 15 100 08/14/19 10:42 61 15 100 08/14/19 09:09 61 122/52 (75) 08/14/19 09:00 60 118/41 08/14/19 09:00 118/41 08/14/19 08:00 Mechanical Ventilator 08/14/19 08:00 64 08/14/19 08:00 24 08/14/19 07:09 60 15 25 08/14/19 07:07 97.1 60 18 118/41 (66) 100 08/14/19 04:00 97.4 61 18 106/43 (64) 100 08/14/19 04:00 24 08/14/19 04:00 Mechanical Ventilator 08/14/19 03:34 60 08/14/19 03:30 61 17 25 08/14/19 00:00 24 08/14/19 00:00 97.0 61 18 137/50 (79) 100 08/14/19 00:00 Mechanical Ventilator 08/13/19 23:30 60 08/13/19 23:20 61 15 25 08/13/19 21:00 60 109/55 08/13/19 20:00 24 08/13/19 20:00 97.0 60 18 117/78 (91) 100 08/13/19 20:00 Mechanical Ventilator 08/13/19 19:21 59 08/13/19 19:20 60 15 24 08/13/19 16:00 24 08/13/19 16:00 59 08/13/19 16:00 Mechanical Ventilator 08/13/19 16:00 97.0 61 18 133/71 (91) 100 08/13/19 15:05 64 17 24 08/13/19 12:00 59 08/13/19 12:00 97.0 59 18 129/82 (98) 98 08/13/19 12:00 Mechanical Ventilator 08/13/19 12:00 24 Height (Feet): 6 Height (Inches): 7 Weight (Pounds): 178 HEENT: status post trach Respiratory/Chest: lungs clear Cardiovascular: normal rate, regular rhythm, no gallop/murmur Abdomen: soft, non tender, other - GT Extremities: other - + edema Laboratory Tests Test 08/13/19 11:17 08/14/19 04:50 POC Whole Blood Glucose 171 MG/DL (74-106) H White Blood Count 28.4 K/UL (4.8-10.8) *H Red Blood Count 3.20 M/UL (4.70-6.10) L Hemoglobin 8.8 G/DL (14.2-18.0) L Hematocrit 28.1 % (42.0-52.0) L Mean Corpuscular Volume 88 FL (80-99) Mean Corpuscular Hemoglobin 27.6 PG (27.0-31.0) Mean Corpuscular Hemoglobin Concent 31.4 G/DL (32.0-36.0) L Red Cell Distribution Width 17.1 % (11.6-14.8) H Platelet Count 389 K/UL (150-450) Mean Platelet Volume 5.3 FL (6.5-10.1) L Neutrophils (%) (Auto) % (45.0-75.0) Lymphocytes (%) (Auto) % (20.0-45.0) Monocytes (%) (Auto) % (1.0-10.0) Eosinophils (%) (Auto) % (0.0-3.0) Basophils (%) (Auto) % (0.0-2.0) Differential Total Cells Counted 100 Neutrophils % (Manual) 82 % (45-75) H Lymphocytes % (Manual) 10 % (20-45) L Monocytes % (Manual) 3 % (1-10) Eosinophils % (Manual) 5 % (0-3) H Basophils % (Manual) 0 % (0-2) Band Neutrophils 0 % (0-8) Platelet Estimate Adequate Platelet Morphology Normal Polychromasia 1+ Hypochromasia 1+ Anisocytosis 1+ Prothrombin Time 13.3 SEC (9.30-11.50) H Prothromb Time International Ratio 1.2 (0.9-1.1) H Activated Partial Thromboplast Time 28 SEC (23-33) Sodium Level 133 MMOL/L (136-145) L Potassium Level 4.9 MMOL/L (3.5-5.1) Chloride Level 102 MMOL/L (98-107) Carbon Dioxide Level 20 MMOL/L (21-32) L Anion Gap 12 mmol/L (5-15) Blood Urea Nitrogen 157 mg/dL (7-18) H Creatinine 4.0 MG/DL (0.55-1.30) H Estimat Glomerular Filtration Rate 14.6 mL/min (>60) Glucose Level 145 MG/DL (74-106) H Calcium Level 8.2 MG/DL (8.5-10.1) L Total Bilirubin 0.3 MG/DL (0.2-1.0) Aspartate Amino Transf (AST/SGOT) 22 U/L (15-37) Alanine Aminotransferase (ALT/SGPT) 20 U/L (12-78) Alkaline Phosphatase 153 U/L (46-116) H Total Protein 6.2 G/DL (6.4-8.2) L Albumin 1.4 G/DL (3.4-5.0) L Globulin 4.8 g/dL Albumin/Globulin Ratio 0.3 (1.0-2.7) L Current Medications Medications (Trade) Dose Ordered Sig/Leonel Route PRN Reason Start Time Stop Time Status Last Admin Dose Admin Acetaminophen (Tylenol) 650 mg Q4H PRN GT Mild Pain / fever 08/09/19 05:30 09/08/19 05:29 Acetaminophen (Tylenol) 650 mg Q4H PRN ORAL Mild Pain (Pain Scale 1-3) 08/14/19 08:45 08/14/19 16:45 Al Hydroxide/Mg Hydroxide (Mylanta) 15 ml Q1H PRN ORAL gi upset 08/14/19 08:45 08/14/19 16:45 Al Hydroxide/Mg Hydroxide (Mylanta) 30 ml FOUR TIMES A DAY PRN GT constipation 08/09/19 06:00 09/08/19 05:29 Ascorbic Acid (Vitamin C) 500 mg DAILY GT 08/09/19 09:00 09/08/19 08:59 08/13/19 08:40 Atorvastatin Calcium (Lipitor) 40 mg BEDTIME GT 08/09/19 21:00 11/07/19 20:59 08/13/19 21:03 Atropine Sulfate (Atropine 0.4mg/ ml) 0.5 mg Q5M PRN IVP bpm less than 45 08/14/19 08:45 08/14/19 16:45 Clonidine HCl (Catapres Tab) 0.1 mg Q4H PRN GT SBP>150 08/12/19 10:45 11/10/19 06:44 Dextrose (Dextrose 50%) 25 ml Q30M PRN IV Hypoglycemia 08/09/19 07:30 11/07/19 07:29 Dextrose (Dextrose 50%) 50 ml Q30M PRN IV Hypoglycemia 08/09/19 07:30 11/07/19 07:29 Diphenhydramine HCl (Benadryl) 25 mg Q15M PRN IVP Itching 08/14/19 08:45 08/14/19 16:45 Epoetin Andreas (Epoetin Andreas-EPBX(NON ESRD)) 8,000 unit WED-WED-WED SUBQ 08/09/19 21:00 11/07/19 20:59 08/11/19 21:01 Hydralazine HCl (Apresoline) 5 mg Q30M PRN IV SBP>160 /DBP>90 08/14/19 08:45 08/14/19 16:45 Insulin Aspart (NovoLOG) Q6HR SUBQ 08/10/19 00:00 11/07/19 11:29 08/13/19 17:20 Lansoprazole (Prevacid) 30 mg DAILY GT 08/09/19 09:00 09/08/19 08:59 08/13/19 08:42 Linezolid (Zyvox) 600 mg EVERY 12 HOURS GT 08/11/19 11:00 08/16/19 10:59 08/14/19 08:31 Loperamide HCl (Imodium) 2 mg Q4H PRN GT Diarrhea 08/09/19 08:00 09/08/19 07:59 Metoprolol Tartrate (Lopressor) 200 mg Q12HR GT 08/09/19 09:00 11/07/19 08:59 08/13/19 08:41 Midazolam HCl (Versed 2mg/2ml vial) 1 mg Q15M PRN IVP For Anxiety 08/14/19 08:45 08/14/19 16:45 Minoxidil (Loniten) 5 mg DAILY GT 08/09/19 09:00 11/07/19 08:59 08/13/19 08:42 Multivitamins (Multivitamins W/ Minerals 15ml Liquid) 15 ml DAILY GT 08/09/19 09:00 09/08/19 08:59 08/13/19 08:40 Ondansetron HCl (Zofran) 4 mg Q1H PRN IVP Nausea & Vomiting 08/14/19 08:45 08/14/19 16:45 Piperacillin Sod/ Tazobactam Sod 3.375 gm/Sodium Chloride 110 ml @ 27.5 mls/hr Q12H IVPB 08/09/19 06:00 08/16/19 05:59 08/14/19 08:32 Vitamin B Complex/ Vit C/Folic Acid (Nephrovite) 1 tab DAILY GT 08/09/19 09:00 09/08/19 08:59 08/13/19 08:40 Vitamin D (Vitamin D) 1,000 intlu DAILY GT 08/09/19 09:00 09/08/19 08:59 08/13/19 08:40 Zinc Oxide (Zinc Oxide) 1 applic BID TOPIC 08/10/19 18:00 11/08/19 17:59 08/13/19 17:22 Farnaz Lyle MD Aug 14, 2019 11:15
--- NOTE | 2019-08-14 11:29 | Endoscopy Procedure Note ---
Endoscopy Procedure Note General Indication for Procedure: heme (+) Procedures Performed: EGD Operative Findings/Diagnosis: mild gastritis Specimen: yes Pt Tolerated Procedure Well: Yes Estimated Blood Loss: none Anesthesia Anesthesiologist: Carlo Franco Anesthesia: MAC Medications Medication Given: see anesthesia record Inserted Devices Implant(s) used?: No GI Core Measures 50 yrs or older w/o bx or poly: Not Applicable 10yrs. F/U recommended: Not Applicable If not recommended, why?: Ronny Mustafa MD Aug 14, 2019 11:29
--- NOTE | 2019-08-14 11:30 | Brief Operative Note ---
Immediate Post Operative Note Operative Note Chief Complaint: Heme (+) Pre-op Diagnosis: GIB Procedure: EGD Bx Post-op Diagnosis: Gastritis, mild Surgeon: Ramsey Anesthesiologist: Carlo Franco Anesthesia: MAC, moderate sedation Specimen: yes Complications: none Condition: stable Fluids: Per anesthesia Estimated Blood Loss: none Drains: none Implant(s) used?: No Ronny Mustafa MD Aug 14, 2019 11:30
--- NOTE | 2019-08-14 11:37 | Nephrology Progress Note ---
Assessment/Plan Plan Sepsis - IV Abx Skin wounds - wound care Pre ESRD - creatinine clearance 19 but true GFR is much lower! Needs HD. To Arrange DW Dr. Ramirez. Subjective Subjective Obtunded Objective Objective Last 24 Hour Vital Signs Date Time Temp Pulse Resp B/P (MAP) Pulse Ox O2 Delivery O2 Flow Rate FiO2 08/14/19 11:12 97.1 64 18 120/62 (81) 100 08/14/19 10:50 66 117/52 (73) 08/14/19 10:46 62 17 25 08/14/19 10:43 61 15 100 08/14/19 10:42 61 15 100 08/14/19 10:30 64 89/43 (58) 08/14/19 09:09 61 122/52 (75) 08/14/19 09:00 60 118/41 08/14/19 09:00 118/41 08/14/19 08:00 Mechanical Ventilator 08/14/19 08:00 64 08/14/19 08:00 24 08/14/19 07:09 60 15 25 08/14/19 07:07 97.1 60 18 118/41 (66) 100 08/14/19 04:00 97.4 61 18 106/43 (64) 100 08/14/19 04:00 24 08/14/19 04:00 Mechanical Ventilator 08/14/19 03:34 60 08/14/19 03:30 61 17 25 08/14/19 00:00 24 08/14/19 00:00 97.0 61 18 137/50 (79) 100 08/14/19 00:00 Mechanical Ventilator 08/13/19 23:30 60 08/13/19 23:20 61 15 25 08/13/19 21:00 60 109/55 08/13/19 20:00 24 08/13/19 20:00 97.0 60 18 117/78 (91) 100 08/13/19 20:00 Mechanical Ventilator 08/13/19 19:21 59 08/13/19 19:20 60 15 24 08/13/19 16:00 24 08/13/19 16:00 59 08/13/19 16:00 Mechanical Ventilator 08/13/19 16:00 97.0 61 18 133/71 (91) 100 08/13/19 15:05 64 17 24 08/13/19 12:00 59 7/5/20 12:00 97.0 59 18 129/82 (98) 98 08/13/19 12:00 Mechanical Ventilator 08/13/19 12:00 24 Intake and Output 08/13/19 08/14/19 19:00 07:00 Intake Total 725.0 ml 335.0 ml Output Total 250 ml 150 ml Balance 475.0 ml 185.0 ml IV Total 135.0 ml 110.0 ml Tube Feeding 540 ml 225 ml Other 50 ml Output Urine Total 250 ml 150 ml # Bowel Movements 2 2 Laboratory Tests 08/14/19 04:50: White Blood Count 28.4*H, Red Blood Count 3.20L, Hemoglobin 8.8L, Hematocrit 28.1L, Mean Corpuscular Volume 88, Mean Corpuscular Hemoglobin 27.6, Mean Corpuscular Hemoglobin Concent 31.4L, Red Cell Distribution Width 17.1H, Platelet Count 389, Mean Platelet Volume 5.3L, Neutrophils (%) (Auto) , Lymphocytes (%) (Auto) , Monocytes (%) (Auto) , Eosinophils (%) (Auto) , Basophils (%) (Auto) , Differential Total Cells Counted 100, Neutrophils % ( Manual) 82H, Lymphocytes % (Manual) 10L, Monocytes % (Manual) 3, Eosinophils % ( Manual) 5H, Basophils % (Manual) 0, Band Neutrophils 0, Platelet Estimate Adequate, Platelet Morphology Normal, Polychromasia 1+, Hypochromasia 1+, Anisocytosis 1+, Prothrombin Time 13.3H, Prothromb Time International Ratio 1.2H , Activated Partial Thromboplast Time 28, Sodium Level 133L, Potassium Level 4.9 , Chloride Level 102, Carbon Dioxide Level 20L, Anion Gap 12, Blood Urea Nitrogen 157H, Creatinine 4.0H, Estimat Glomerular Filtration Rate 14.6, Glucose Level 145H, Calcium Level 8.2L, Total Bilirubin 0.3, Aspartate Amino Transf (AST/SGOT) 22, Alanine Aminotransferase (ALT/SGPT) 20, Alkaline Phosphatase 153H, Total Protein 6.2L, Albumin 1.4L, Globulin 4.8, Albumin/ Globulin Ratio 0.3L Height (Feet): 6 Height (Inches): 7 Weight (Pounds): 178 Objective CV RR Trach clean Lungs CTA Abd SNT. BS + E No CCE Erica Pichardo MD Aug 14, 2019 11:37
--- NOTE | 2019-08-14 11:56 | Surgery Progress Note ---
Surgery Progress Note Subjective Additional Comments discussed with nephro plan HD needs temp access Objective Last 24 Hour Vital Signs Date Time Temp Pulse Resp B/P (MAP) Pulse Ox O2 Delivery O2 Flow Rate FiO2 08/14/19 11:12 97.1 64 18 120/62 (81) 100 08/14/19 10:50 66 117/52 (73) 08/14/19 10:46 62 17 25 08/14/19 10:43 61 15 100 08/14/19 10:42 61 15 100 08/14/19 10:30 64 89/43 (58) 08/14/19 09:09 61 122/52 (75) 08/14/19 09:00 60 118/41 08/14/19 09:00 118/41 08/14/19 08:00 Mechanical Ventilator 08/14/19 08:00 64 08/14/19 08:00 24 08/14/19 07:09 60 15 25 08/14/19 07:07 97.1 60 18 118/41 (66) 100 08/14/19 04:00 97.4 61 18 106/43 (64) 100 08/14/19 04:00 24 08/14/19 04:00 Mechanical Ventilator 08/14/19 03:34 60 08/14/19 03:30 61 17 25 08/14/19 00:00 24 08/14/19 00:00 97.0 61 18 137/50 (79) 100 08/14/19 00:00 Mechanical Ventilator 08/13/19 23:30 60 08/13/19 23:20 61 15 25 08/13/19 21:00 60 109/55 08/13/19 20:00 24 08/13/19 20:00 97.0 60 18 117/78 (91) 100 08/13/19 20:00 Mechanical Ventilator 08/13/19 19:21 59 08/13/19 19:20 60 15 24 08/13/19 16:00 24 08/13/19 16:00 59 08/13/19 16:00 Mechanical Ventilator 08/13/19 16:00 97.0 61 18 133/71 (91) 100 08/13/19 15:05 64 17 24 08/13/19 12:00 59 08/13/19 12:00 97.0 59 18 129/82 (98) 98 08/13/19 12:00 Mechanical Ventilator 08/13/19 12:00 24 I&O Intake and Output 08/13/19 08/14/19 19:00 07:00 Intake Total 725.0 ml 335.0 ml Output Total 250 ml 150 ml Balance 475.0 ml 185.0 ml IV Total 135.0 ml 110.0 ml Tube Feeding 540 ml 225 ml Other 50 ml Output Urine Total 250 ml 150 ml # Bowel Movements 2 2 Dressing: other Wound: other Cardiovascular: RSR Respiratory: decreased breath sounds Abdomen: soft, non-tender Extremities: no cyanosis Laboratory Tests Test 08/14/19 04:50 White Blood Count 28.4 K/UL (4.8-10.8) *H Red Blood Count 3.20 M/UL (4.70-6.10) L Hemoglobin 8.8 G/DL (14.2-18.0) L Hematocrit 28.1 % (42.0-52.0) L Mean Corpuscular Volume 88 FL (80-99) Mean Corpuscular Hemoglobin 27.6 PG (27.0-31.0) Mean Corpuscular Hemoglobin Concent 31.4 G/DL (32.0-36.0) L Red Cell Distribution Width 17.1 % (11.6-14.8) H Platelet Count 389 K/UL (150-450) Mean Platelet Volume 5.3 FL (6.5-10.1) L Neutrophils (%) (Auto) % (45.0-75.0) Lymphocytes (%) (Auto) % (20.0-45.0) Monocytes (%) (Auto) % (1.0-10.0) Eosinophils (%) (Auto) % (0.0-3.0) Basophils (%) (Auto) % (0.0-2.0) Differential Total Cells Counted 100 Neutrophils % (Manual) 82 % (45-75) H Lymphocytes % (Manual) 10 % (20-45) L Monocytes % (Manual) 3 % (1-10) Eosinophils % (Manual) 5 % (0-3) H Basophils % (Manual) 0 % (0-2) Band Neutrophils 0 % (0-8) Platelet Estimate Adequate Platelet Morphology Normal Polychromasia 1+ Hypochromasia 1+ Anisocytosis 1+ Prothrombin Time 13.3 SEC (9.30-11.50) H Prothromb Time International Ratio 1.2 (0.9-1.1) H Activated Partial Thromboplast Time 28 SEC (23-33) Sodium Level 133 MMOL/L (136-145) L Potassium Level 4.9 MMOL/L (3.5-5.1) Chloride Level 102 MMOL/L (98-107) Carbon Dioxide Level 20 MMOL/L (21-32) L Anion Gap 12 mmol/L (5-15) Blood Urea Nitrogen 157 mg/dL (7-18) H Creatinine 4.0 MG/DL (0.55-1.30) H Estimat Glomerular Filtration Rate 14.6 mL/min (>60) Glucose Level 145 MG/DL (74-106) H Calcium Level 8.2 MG/DL (8.5-10.1) L Total Bilirubin 0.3 MG/DL (0.2-1.0) Aspartate Amino Transf (AST/SGOT) 22 U/L (15-37) Alanine Aminotransferase (ALT/SGPT) 20 U/L (12-78) Alkaline Phosphatase 153 U/L (46-116) H Total Protein 6.2 G/DL (6.4-8.2) L Albumin 1.4 G/DL (3.4-5.0) L Globulin 4.8 g/dL Albumin/Globulin Ratio 0.3 (1.0-2.7) L Plan Problems: (1) Anemia (2) Hyponatremia (3) Leukocytosis Assessment & Plan: Tracheostomy, left chest pacemaker are again demonstrated. There is bilateral interstitial and airspace disease and bilateral pleural fluid again demonstrated. This appears more severe than on the prior study. Bilateral interstitial and airspace infiltrates versus edema. Bilateral pleural effusions Leukocytosis, anemia, tachycardia, abnormal labs. Wound evaluated and likely etiology of patient's sepsis. Leukocytosis etiology work-up antibiotics per infectious disease Appreciate nephrology input transfuse with dialysis We will follow with recommendations thank you allowing participation's care plan HD access temp HD discussed with medical teams (4) Ventilator dependent (5) Right lower lobe pneumonia (6) Hypokalemia (7) Hyperkalemia (8) Anasarca (9) Decubitus skin ulcer Assessment & Plan: pt presented on admission with generalized edemae.Skin assessed under tracheostomy and no areas of concerns noted. GT Insertion is marginally erythematous with small amt slough at stoma. Unstageable Pressure Injury R elbow. Base of wound is 100% yellow slough, Borders are erythematous. Wound oozing small amt haemopurulent exudate.Darker skin tone without elevation in skin temp or erythema periwound. Pt's penis and scrotum are grossly edematous and enlarged and weeping serous exudate from numerous sites both from penis and scrotum. Two small open wounds noted at base of at base of shaft of penis ,and contreras aspect of scrotum. Both wounds oozing large amt sanguineous and serosanguineous exudate. Multiple open wounds with Biofilm at base of each wounds noted to contreras/lateral,inferior and posterior aspects of scrotum. These wounds noted to be oozing moderate amts of serosanguineous exudate. Hypertrophic scar with scattered areas of hyperpigmentation noted to Sacrum. DTPI noted to L Buttocks (L)7cm x (W)9cm. Base of wound is purple and indurated.Darker skin tone without erythema, induration or fluctuance R and L ischial tuberosities. Both heels are boggy with non-blanchable erythema. Tx.Plan: Cleanse wound R elbow with Saline. Apply TheraHoney, Apply Moisture Barrier Paste periwound. Cover with Optifoam drsg.Change Daily and prn. Wash GT site with soap and water.Pat dry. Apply Zinc Oxide Paste to GT site Daily. Leave Open to Air. Apply Zinc Oxide Paste to entire Scrotum, Place ABD pads to R and L lateral, and posterior aspects of scrotum TWICE daily. Apply Cavilon Skin Barrier to malleoli and both Heels. Cover each site with Optifoam drsgs. Change every 7 days and prn. Reposition at least every 2hours or as tolerated. Off-load heels with Pillows. APM/BECCA Mattress overlay. (10) Malnutrition Assessment & Plan: DAILY ESTIMATED NEEDS: Needs based on Renal, critical care, wound/ 61kg 22-28 kcals/kg 2794-0660 total kcals 1-1.25 (increase w/ renal improvement) g protein/kg 61-76 g total protein 20-25 mL/kg 7653-0731 total fluid mLs NUTRITION DIAGNOSIS: * Swallowing difficulty R/T respiratory failure, dysphagia as evidenced by trach/vent dep, PEG dep * Increased kcal/prot needs R/T wound healing as evidenced by admitted w/ multiple pressure injuries per photos, pending eval. CURRENT TF:Nepro @ 45ml/hr x 24 hrs ENTERAL NUTRITION RECOMMENDATIONS: NEPRO to 45ml/hr x 20 hrs to provide 900ml, 1620kcal, 73g prot, 654ml free water * Maintain current TF * HOB over 30 degrees/ water flush per MD ADDITIONAL RECOMMENDATIONS: * Per SNF: HT=63" TG=541 lbs (Vs EMR wt of 165lbs) -> obtain re-calibrated bedscale wt * Wound healing: add Nephrovite x 1 + Vit C 250mg QD add Garo 1pkt BID via GT * Monitor renal fxn and lytes, check phos level (11) Uremia (12) CKD (chronic kidney disease) stage 5, GFR less than 15 ml/min Jonathan Urias Aug 14, 2019 11:56
--- NOTE | 2019-08-14 13:07 | NUR ---
CASE MANAGEMENT: REVIEW SI: RIGHT LOWER LOBE PNA . ANEMIA . ESRD TUNNEL CATH PLACEMENT T 97.2 HR 64 RR 18 BP 122/58 SAT 100% MECH VENT FIO2 24 WBC 28.4 H/H 8.8/28.1 NA 133 BUN 157 CR 4.0 IS: ZYVOX GT Q12HR ZOSYN IV Q12HR EPOETIN SUBQ QMWF HD NEEDED PATIENT ADMITTED TO STEP DOWN UNIT DCP: PATIENT IS FROM [facility]
--- NOTE | 2019-08-14 13:30 | Operative Note - Dictated ---
DATE OF OPERATION: 08/14/2019 GASTROENTEROLOGY PROCEDURE REPORT PROCEDURE: Upper gastrointestinal endoscopy with biopsy. SURGEON: Ronny Mustafa MD. ANESTHESIA: Please see the separate anesthesiologist notes for details. PRE-ENDOSCOPIC DIAGNOSIS: Heme-positive stools. POSTOP-ENDOSCOPIC DIAGNOSIS: Mild gastritis. DESCRIPTION OF PROCEDURE: The procedure, its risks, indications, alternatives, and possible complications including but not limited to bleeding, infection, perforation, , and anesthesia complications were explained to the patient's decision maker and informed consent was obtained. The patient was then sedated in the supine position. A diagnostic upper endoscope was introduced through the oropharynx and advanced to the duodenum without difficulty. The endoscope was then gradually withdrawn and mucosa examined carefully. Examination of the upper gastrointestinal mucosa revealed mild nonerosive gastritis in the mid body of the stomach. Biopsies were sent to pathology for review. There were no large ulcers or bleeding identified. The endoscope was removed. The patient was sent to Recovery in good condition. COMPLICATIONS: None. RECOMMENDATIONS: 1. Resume tube feedings. 2. Monitor CBC. Ronny Mustafa M.D. DR: CELINE JOB#: [id number] CC:
--- NOTE | 2019-08-14 13:37 | Operative Note - PDOC ---
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 Patient does not have access and requires temporary hemodialysis access with potential for long-term access in the future. Consent obtained line placement at bedside Description of Procedure Patient made comfortable at bedside in supine position. Right groin prepped draped in same surgical fashion. Local anesthetic infiltrated. Right femoral vein cannulated on second stick without complication good venous flow blood identified. Guidewire placed over needle needle removed. Small skin incision made around the guidewire. Dilator was used and tract dilated. A temporary hemodialysis catheter was inserted over the guidewire without complication. Guidewire was removed and discarded. The catheter ports flushed and aspirated appropriately without complication good venous flow noted. Line flushed and sutured in place. Dressings applied. Patient taught procedure well. Discussed with team for hemodialysis. Jonathan Urias Aug 14, 2019 13:37
[2019-08-14] MEDS ORDERED: NS 275ml ONE (19:03)
--- NOTE | 2019-08-14 19:28 | NUR ---
NURSE NOTES: Received pt's report Min RN. Pt is laying on bed and sleeping. Pt is on ventilator per prescription. RR 17, SpO2 100% noted. No s/s of respiratory distress noted. Pt is on G-tube, Nepro 1.8 @ 45ml/hr running. Pt is on semi-rivera position. Pt is on R-femoral Rancho cath noted. R-hand IV is intact and patent noted. Call-light within reach. Bed is low position and locked. Will continue to monitor and follow plan of care.
--- NOTE | 2019-08-14 19:40 | NUR ---
HAND-OFF: Report given to TAMICA Worley. Pt remains stable.
[2019-08-14] MEDS: Epoetin Alfa-EPBX (NON ESRD)4000 units/ml vial SUBQ SCH (20:10)
[2019-08-14] MEDS: Atorvastatin 20mg tab GT SCH (20:11)
[2019-08-15] VITALS (7 sets, daily range): BP systolic 104–147; BP diastolic 47–64
[2019-08-15 05:54] LABS: ANION GAP 13 mmol/L (5-15); BLOOD UREA NITROGEN 151 mg/dL (7-18); CALCIUM 8.5 MG/DL (8.5-10.1); CARBON DIOXIDE 19 MMOL/L (21-32); CHLORIDE 100 MMOL/L (98-107); CREATININE 4.2 MG/DL (0.55-1.30); POTASSIUM 4.1 MMOL/L (3.5-5.1); SODIUM 132 MMOL/L (136-145)
[2019-08-15] MEDS: NovoLOG Insulin Flexpen SUBQ SCH ×4 (06:19→23:29)
--- NOTE | 2019-08-15 06:39 | Consultation ---
History of Present Illness General Chief Complaint: Abnormal Labs Present Illness Allergies: Coded Allergies: No Known Allergies (Unverified , 06/10/19) Medication History Scheduled Acetaminophen 160MG/5ML* (Acetaminophen*), 20 ML GT DAILY, (Reported) Ascorbic Acid* (Ascorbic Acid*), 500 MG ORAL DAILY, (Reported) Ascorbic Acid* (Vitamin C*), 500 MG GT DAILY, (Reported) Atorvastatin Calcium* (Lipitor*), 40 MG GT BEDTIME, (Reported) Benazepril Hcl* (Lotensin*), 20 MG GT DAILY, (Reported) Cholecalciferol (Vitamin D3) (Vitamin D3), 1,000 UNIT GT DAILY, (Reported) Epoetin Andreas (Epogen), 10,000 UNIT SUBQ 3XW, (Reported) Ferrous Sulfate* (Ferrous Sulfate*), 325 MG ORAL DAILY, (Reported) Heparin Sod (Porcine) (Heparin Sodium*), 5,000 UNITS SUBQ EVERY 12 HOURS, ( Reported) Hydralazine Hcl* (Hydralazine Hcl*), 100 MG ORAL EVERY 8 HOURS, (Reported) Lansoprazole* (Prevacid*), 30 MG GT DAILY, (Reported) Losartan Potassium* (Losartan Potassium*), 100 MG ORAL DAILY, (Reported) Metoprolol Tartrate* (Metoprolol Tartrate*), 100 MG ORAL EVERY 12 HOURS, ( Reported) Multivitamin With Minerals (Multivitamins With Minerals*), 1 TAB ORAL DAILY, ( Reported) Pantoprazole* (Protonix*), 40 MG ORAL DAILY, (Reported) Vitamin B Cmplx/Vit C/Folic AC (Nephro-Eileen Tablet), 1 TAB ORAL DAILY, (Reported ) Miscellaneous Medications Arginine/Glutamine/Calcium Hmb (Garo Packet), 1 EACH GT, (Reported) Cranberry Extract (Cranberry), 425 MG GT, (Reported) Folic Acid/Vitamin B Comp W-C (Radha-Eileen Tablet), 0.8 MG GT, (Reported) Insulin Aspart (Novolog Flexpen), (Reported) Insulin Lispro (Humalog), 0 SUBQ, (Reported) Lactobacillus Acidophilus (Probiotic), 1 EACH PO, (Reported) Loperamide Hcl (Imodium A-D), 1 MG GT, (Reported) Metoprolol Tartrate* (Lopressor*), 200 MG GT, (Reported) Minoxidil (Minoxidil), 5 MG GT, (Reported) Potassium Chloride (Potassium Chloride), 20 MEQ PO, (Reported) Patient History Healthcare decision maker Resuscitation status Advanced Directive on File Physical Exam Last 24 Hour Vital Signs Date Time Temp Pulse Resp B/P (MAP) Pulse Ox O2 Delivery O2 Flow Rate FiO2 08/15/19 03:41 63 15 25 08/15/19 00:00 97.3 61 20 104/47 (66) 100 08/15/19 00:00 Mechanical Ventilator 08/14/19 23:28 61 08/14/19 22:49 60 17 25 08/14/19 20:11 70 117/50 08/14/19 20:00 Mechanical Ventilator 08/14/19 20:00 25 08/14/19 20:00 97.3 63 18 117/50 (72) 100 08/14/19 19:56 65 16 25 08/14/19 19:04 64 08/14/19 16:02 63 15 25 08/14/19 16:00 25 08/14/19 16:00 65 08/14/19 16:00 97.0 66 18 130/60 (83) 100 08/14/19 16:00 Mechanical Ventilator 08/14/19 12:00 24 08/14/19 12:00 97.2 64 18 122/58 (79) 100 08/14/19 12:00 63 08/14/19 12:00 Mechanical Ventilator 08/14/19 11:12 97.1 64 18 120/62 (81) 100 08/14/19 10:50 66 117/52 (73) 08/14/19 10:46 62 17 25 08/14/19 10:43 61 15 100 08/14/19 10:42 61 15 100 08/14/19 10:30 64 89/43 (58) 08/14/19 09:09 61 122/52 (75) 08/14/19 09:00 60 118/41 08/14/19 09:00 118/41 08/14/19 08:00 Mechanical Ventilator 08/14/19 08:00 64 08/14/19 08:00 24 08/14/19 07:09 60 15 25 08/14/19 07:07 97.1 60 18 118/41 (66) 100 Intake and Output 08/14/19 08/15/19 19:00 07:00 Intake Total 530.0 ml 455.0 ml Output Total 150 ml 350 ml Balance 380.0 ml 105.0 ml IV Total 110.0 ml 110.0 ml Tube Feeding 405 ml 315 ml Other 15 ml 30 ml Output Urine Total 150 ml 350 ml # Bowel Movements 4 Laboratory Tests Test 08/14/19 12:25 08/14/19 18:02 08/15/19 03:25 POC Whole Blood Glucose 130 MG/DL (74-106) H 175 MG/DL (74-106) H Sodium Level 132 MMOL/L (136-145) L Potassium Level 4.1 MMOL/L (3.5-5.1) Chloride Level 100 MMOL/L (98-107) Carbon Dioxide Level 19 MMOL/L (21-32) L Anion Gap 13 mmol/L (5-15) Blood Urea Nitrogen 151 mg/dL (7-18) H Creatinine 4.2 MG/DL (0.55-1.30) H Estimat Glomerular Filtration Rate 13.8 mL/min (>60) Glucose Level 197 MG/DL (74-106) H Calcium Level 8.5 MG/DL (8.5-10.1) Height (Feet): 6 Height (Inches): 7 Weight (Pounds): 178 Medications Current Medications Medications (Trade) Dose Ordered Sig/Leonel Route PRN Reason Start Time Stop Time Status Last Admin Dose Admin Acetaminophen (Tylenol) 650 mg Q4H PRN GT Mild Pain / fever 08/09/19 05:30 09/08/19 05:29 Al Hydroxide/Mg Hydroxide (Mylanta) 30 ml FOUR TIMES A DAY PRN GT constipation 08/09/19 06:00 09/08/19 05:29 Ascorbic Acid (Vitamin C) 500 mg DAILY GT 08/09/19 09:00 09/08/19 08:59 08/13/19 08:40 Atorvastatin Calcium (Lipitor) 40 mg BEDTIME GT 08/09/19 21:00 11/07/19 20:59 08/14/19 20:11 Clonidine HCl (Catapres Tab) 0.1 mg Q4H PRN GT SBP>150 08/12/19 10:45 11/10/19 06:44 Dextrose (Dextrose 50%) 25 ml Q30M PRN IV Hypoglycemia 08/09/19 07:30 11/07/19 07:29 Dextrose (Dextrose 50%) 50 ml Q30M PRN IV Hypoglycemia 08/09/19 07:30 11/07/19 07:29 Epoetin Andreas (Epoetin Andreas-EPBX(NON ESRD)) 8,000 unit WED-WED-WED SUBQ 08/09/19 21:00 11/07/19 20:59 08/14/19 20:10 Insulin Aspart (NovoLOG) Q6HR SUBQ 08/10/19 00:00 11/07/19 11:29 08/15/19 06:19 Lansoprazole (Prevacid) 30 mg DAILY GT 08/09/19 09:00 09/08/19 08:59 08/13/19 08:42 Linezolid (Zyvox) 600 mg EVERY 12 HOURS GT 08/11/19 11:00 08/16/19 10:59 08/14/19 20:11 Loperamide HCl (Imodium) 2 mg Q4H PRN GT Diarrhea 08/09/19 08:00 09/08/19 07:59 Metoprolol Tartrate (Lopressor) 200 mg Q12HR GT 08/09/19 09:00 11/07/19 08:59 08/14/19 20:11 Minoxidil (Loniten) 5 mg DAILY GT 08/09/19 09:00 11/07/19 08:59 08/13/19 08:42 Multivitamins (Multivitamins W/ Minerals 15ml Liquid) 15 ml DAILY GT 08/09/19 09:00 09/08/19 08:59 08/13/19 08:40 Piperacillin Sod/ Tazobactam Sod 3.375 gm/Sodium Chloride 110 ml @ 27.5 mls/hr Q12H IVPB 08/09/19 06:00 08/16/19 05:59 08/14/19 19:58 Vitamin B Complex/ Vit C/Folic Acid (Nephrovite) 1 tab DAILY GT 08/09/19 09:00 09/08/19 08:59 08/13/19 08:40 Vitamin D (Vitamin D) 1,000 intlu DAILY GT 08/09/19 09:00 09/08/19 08:59 08/13/19 08:40 Zinc Oxide (Zinc Oxide) 1 applic BID TOPIC 08/10/19 18:00 11/08/19 17:59 08/14/19 18:04 Assessment/Plan Assessment/Plan: Hematology Consultation JOSÉ RUSS: Kain Ramirez C: Leukocytosis eval DOS 08/15/2019 HPI Patient sent in for increased BUN and creatinine. Patient is vent dependent and cannot converse. The patient is in a vegetative state. The patient was discharged from the hospital June 25 with these discharge diagnoses: Pseudomonas pneumonia Suspected COVID-19- ruled out Chronic respiratory failure, ventilator dependent Tracheostomy status Leukocytosis - improved Chronic kidney disease stage V Pulmonary edema Uremia Diarrhea /stool C. 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 COVID-19 Screening: Negative COVID-19 COVID-19 Testing Source: icing maker Patient History Limited by: medical condition Past Medical History: see triage record, old chart reviewed Past Surgical History: other - g tube, trach Social History Narrative Full code, SNF Reviewed Nursing Documentation: PMH: Agreed; PSxH: Agreed Nursing Documentation-PMH Hx Cardiac Problems: Yes Hx Hypertension: Yes Hx Pacemaker: Yes Hx Diabetes: Yes Hx Gastrointestinal Problems: Yes - gtube, impaired swallowing Hx Neurological Problems: No Review of Systems All Other Systems: limited Physical Exam General Appearance: nad, Chronically Ill Head: normocephalic Eyes: right eye PERRL - Will not open left eye ENT: moist mucus membranes Neck: other - submandibular mass R, fairly rigid with resistance to rotation to L, tracheotomy Respiratory: decreased breath sounds, crackles, other - pacemaker Cardiovascular: regular rate, rhythm, edema - anasarca Gastrointestinal: non tender, distended, other - G tube Genitourinary: other Musculoskeletal: other - Contractures all extremities Neurologic: sensory intact, motor weakness, responsive Psychiatric: other Skin: Decubitus/Ulcer - Stage III right elbow, stage III left elbow, stage II sacrum, stage III scrotum, warm/dry Labs noted Imaging reviewed Assessment/recs # Leukocytosis - with multiple infections, VRE UTI --> wbc trend 33-->28 --> on abx, linezolid and zosyn --> + blood cultures with coag neg staph likely contaminated --> as per id recs --> has ordered a flow cytometry (with pathology) to r/o leukemia # Anemia due to chronic disease/kidney disease as well, gi bleed + occult + noted --> was on iron in the past, now on hold --> has been started on epogen --> as per renal care --> egd done and shows gastritis --> on ppi # Respiratory failure --> per pulm, s/p trach --> COVID 19 test negative x 2 # Dysphagia s/p gtube with nepro --> per gi # ESRD with r fem julito --> hd as per renal Appreciate consultation and dw Fitz Singleton MD Aug 15, 2019 06:39
--- NOTE | 2019-08-15 07:33 | NUR ---
NURSE NOTES: Received report from Brunilda Batista RN. Pt in bed awake and confused. IV site right hand 22G TKO patent and asymptomatic. Right femoral Rancho cath patent and intact cover with transparent dressing. No bleeding or s/s of infection noted form Rancho cath. HOB elevated with 30 degree. Call light within easy reach. Bed in lowest position and locked. G-tube patent and intact and feeding on hold as ordered. Trach patent and connected to vent setting AC 15,450,25% and peep of 5. Sating 100% on current vent setting. Will continue to plan of care.
--- NOTE | 2019-08-15 07:33 | NUR ---
HAND-OFF: Report given to TAMICA Madsen. Endorsed plan of care.
[2019-08-15] MEDS: Multivitamins W/Minerals 15 ML UDC GT SCH (08:26)
[2019-08-15] MEDS: Nephrovite tab (Rena-Vite) GT SCH (08:26)
[2019-08-15] MEDS: Ascorbic Acid 500mg tab GT SCH (08:26)
[2019-08-15] MEDS: Minoxidil 2.5mg tab GT SCH (08:27)
[2019-08-15] MEDS: Vitamin D 1000 IU Tab GT SCH (08:27)
[2019-08-15] MEDS: Metoprolol Tartrate 100mg tab GT SCH ×2 (08:27→20:26)
--- NOTE | 2019-08-15 08:27 | General Progress Note ---
Assessment/Plan Assessment/Plan: IMPRESSION: 1. anemia. 2. GI bleed. 3. Leukocytosis. 4. Probable sepsis. + BCX 5. Acute on chronic renal failure. 6. Hyponatremia. 7. Severe protein-calorie malnutrition. 8. Significantly elevated C-reactive protein concerning for infectious etiology. 9. Tracheostomy, G-tube. 10. Ventilator dependence. PLAN care noted on vent monitor sodium rate control HD monitor renal function iv antibiotics and monitor wbc; heme eval to assess for underlying heme disorder multiple + cultures care noted and reviewed remains ill and not yet able to transfer impression, plan, and exam edited and reviewed in detail care discussed with RN Subjective ROS Limited/Unobtainable: Yes Allergies: Coded Allergies: No Known Allergies (Unverified , 06/10/19) Subjective remains ill on vent needs HD weekend events noted Objective Last 24 Hour Vital Signs Date Time Temp Pulse Resp B/P (MAP) Pulse Ox O2 Delivery O2 Flow Rate FiO2 08/15/19 07:03 61 17 25 08/15/19 04:00 25 08/15/19 04:00 Mechanical Ventilator 08/15/19 04:00 97.3 60 17 130/54 (79) 100 08/15/19 03:41 63 15 25 08/15/19 03:36 62 08/15/19 00:00 97.3 61 20 104/47 (66) 100 08/15/19 00:00 Mechanical Ventilator 08/14/19 23:28 61 08/14/19 22:49 60 17 25 08/14/19 20:11 70 117/50 08/14/19 20:00 Mechanical Ventilator 08/14/19 20:00 25 08/14/19 20:00 97.3 63 18 117/50 (72) 100 08/14/19 19:56 65 16 25 08/14/19 19:04 64 08/14/19 16:02 63 15 25 08/14/19 16:00 25 08/14/19 16:00 65 08/14/19 16:00 97.0 66 18 130/60 (83) 100 08/14/19 16:00 Mechanical Ventilator 08/14/19 12:00 24 08/14/19 12:00 97.2 64 18 122/58 (79) 100 08/14/19 12:00 63 08/14/19 12:00 Mechanical Ventilator 08/14/19 11:12 97.1 64 18 120/62 (81) 100 08/14/19 10:50 66 117/52 (73) 08/14/19 10:46 62 17 25 08/14/19 10:43 61 15 100 08/14/19 10:42 61 15 100 08/14/19 10:30 64 89/43 (58) 08/14/19 09:09 61 122/52 (75) 08/14/19 09:00 60 118/41 08/14/19 09:00 118/41 Intake and Output 08/14/19 08/15/19 19:00 07:00 Intake Total 530.0 ml 455.0 ml Output Total 150 ml 350 ml Balance 380.0 ml 105.0 ml IV Total 110.0 ml 110.0 ml Tube Feeding 405 ml 315 ml Other 15 ml 30 ml Output Urine Total 150 ml 350 ml # Bowel Movements 4 Laboratory Tests 08/14/19 12:25: POC Whole Blood Glucose 130H 08/14/19 18:02: POC Whole Blood Glucose 175H 08/15/19 03:25: Sodium Level 132L, Potassium Level 4.1, Chloride Level 100, Carbon Dioxide Level 19L, Anion Gap 13, Blood Urea Nitrogen 151H, Creatinine 4.2H, Estimat Glomerular Filtration Rate 13.8, Glucose Level 197H, Calcium Level 8.5 Height (Feet): 6 Height (Inches): 7 Weight (Pounds): 178 Objective GENERAL: Ill-appearing male, chronically debilitated. HEENT: Tracheostomy in midline. Questionable fullness in the submandibular region. LUNGS: Coarse breath sounds. CARDIAC: S1, S2. Regular rate and rhythm. ABDOMEN: Soft. G-tube. EXTREMITIES: With noted edema. NEUROLOGICAL: Poorly responsive, weak diffusely. Kain Ramirez MD Aug 15, 2019 08:27
[2019-08-15] MEDS: Zinc Oxide Oint 2oz TOPIC SCH ×2 (08:28→18:39)
[2019-08-15] MEDS: Piperacillin/Tazobactam 3.375 GM in NS 110 ML IVPB SCH ×2 (08:29→20:24)
--- NOTE | 2019-08-15 10:11 | Surgery Progress Note ---
Surgery Progress Note Subjective Procedure Performed Right femoral temporary hemodialysis catheter insertion Additional Comments persistent leukocytosis line okay plan HD today no n/v Objective Last 24 Hour Vital Signs Date Time Temp Pulse Resp B/P (MAP) Pulse Ox O2 Delivery O2 Flow Rate FiO2 08/15/19 08:27 64 124/47 08/15/19 08:27 124/47 08/15/19 08:00 60 08/15/19 08:00 98.1 64 17 124/47 (72) 100 08/15/19 07:03 61 17 25 08/15/19 04:00 25 08/15/19 04:00 Mechanical Ventilator 08/15/19 04:00 97.3 60 17 130/54 (79) 100 08/15/19 03:41 63 15 25 08/15/19 03:36 62 08/15/19 00:00 97.3 61 20 104/47 (66) 100 08/15/19 00:00 Mechanical Ventilator 08/14/19 23:28 61 08/14/19 22:49 60 17 25 08/14/19 20:11 70 117/50 08/14/19 20:00 Mechanical Ventilator 08/14/19 20:00 25 08/14/19 20:00 97.3 63 18 117/50 (72) 100 08/14/19 19:56 65 16 25 08/14/19 19:04 64 08/14/19 16:02 63 15 25 08/14/19 16:00 25 08/14/19 16:00 65 08/14/19 16:00 97.0 66 18 130/60 (83) 100 08/14/19 16:00 Mechanical Ventilator 08/14/19 12:00 24 08/14/19 12:00 97.2 64 18 122/58 (79) 100 08/14/19 12:00 63 08/14/19 12:00 Mechanical Ventilator 08/14/19 11:12 97.1 64 18 120/62 (81) 100 08/14/19 10:50 66 117/52 (73) 08/14/19 10:46 62 17 25 08/14/19 10:43 61 15 100 08/14/19 10:42 61 15 100 08/14/19 10:30 64 89/43 (58) I&O Intake and Output 08/14/19 08/15/19 19:00 07:00 Intake Total 530.0 ml 455.0 ml Output Total 150 ml 350 ml Balance 380.0 ml 105.0 ml IV Total 110.0 ml 110.0 ml Tube Feeding 405 ml 315 ml Other 15 ml 30 ml Output Urine Total 150 ml 350 ml # Bowel Movements 4 Dressing: other Wound: other Cardiovascular: RSR Respiratory: decreased breath sounds Abdomen: soft, non-tender, present bowel sounds Extremities: edema, no cyanosis Laboratory Tests Test 08/14/19 12:25 08/14/19 18:02 08/15/19 03:25 POC Whole Blood Glucose 130 MG/DL (74-106) H 175 MG/DL (74-106) H Sodium Level 132 MMOL/L (136-145) L Potassium Level 4.1 MMOL/L (3.5-5.1) Chloride Level 100 MMOL/L (98-107) Carbon Dioxide Level 19 MMOL/L (21-32) L Anion Gap 13 mmol/L (5-15) Blood Urea Nitrogen 151 mg/dL (7-18) H Creatinine 4.2 MG/DL (0.55-1.30) H Estimat Glomerular Filtration Rate 13.8 mL/min (>60) Glucose Level 197 MG/DL (74-106) H Calcium Level 8.5 MG/DL (8.5-10.1) Plan Problems: (1) Anemia (2) Hyponatremia (3) Leukocytosis Assessment & Plan: Tracheostomy, left chest pacemaker are again demonstrated. There is bilateral interstitial and airspace disease and bilateral pleural fluid again demonstrated. This appears more severe than on the prior study. Bilateral interstitial and airspace infiltrates versus edema. Bilateral pleural effusions Leukocytosis, anemia, tachycardia, abnormal labs. Wound evaluated and likely etiology of patient's sepsis. Leukocytosis etiology work-up antibiotics per infectious disease Appreciate nephrology input transfuse with dialysis We will follow with recommendations thank you allowing participation's care plan HD access temp HD discussed with medical teams line okay HD as per renal (4) Ventilator dependent (5) Right lower lobe pneumonia (6) Hypokalemia (7) Hyperkalemia (8) Anasarca (9) Decubitus skin ulcer Assessment & Plan: pt presented on admission with generalized edemae.Skin assessed under tracheostomy and no areas of concerns noted. GT Insertion is marginally erythematous with small amt slough at stoma. Unstageable Pressure Injury R elbow. Base of wound is 100% yellow slough, Borders are erythematous. Wound oozing small amt haemopurulent exudate.Darker skin tone without elevation in skin temp or erythema periwound. Pt's penis and scrotum are grossly edematous and enlarged and weeping serous exudate from numerous sites both from penis and scrotum. Two small open wounds noted at base of at base of shaft of penis ,and contreras aspect of scrotum. Both wounds oozing large amt sanguineous and serosanguineous exudate. Multiple open wounds with Biofilm at base of each wounds noted to contreras/lateral,inferior and posterior aspects of scrotum. These wounds noted to be oozing moderate amts of serosanguineous exudate. Hypertrophic scar with scattered areas of hyperpigmentation noted to Sacrum. DTPI noted to L Buttocks (L)7cm x (W)9cm. Base of wound is purple and indurated.Darker skin tone without erythema, induration or fluctuance R and L ischial tuberosities. Both heels are boggy with non-blanchable erythema. Tx.Plan: Cleanse wound R elbow with Saline. Apply TheraHoney, Apply Moisture Barrier Paste periwound. Cover with Optifoam drsg.Change Daily and prn. Wash GT site with soap and water.Pat dry. Apply Zinc Oxide Paste to GT site Daily. Leave Open to Air. Apply Zinc Oxide Paste to entire Scrotum, Place ABD pads to R and L lateral, and posterior aspects of scrotum TWICE daily. Apply Cavilon Skin Barrier to malleoli and both Heels. Cover each site with Optifoam drsgs. Change every 7 days and prn. Reposition at least every 2hours or as tolerated. Off-load heels with Pillows. APM/BECCA Mattress overlay. (10) Malnutrition Assessment & Plan: DAILY ESTIMATED NEEDS: Needs based on Renal, critical care, wound/ 61kg 22-28 kcals/kg 4230-7170 total kcals 1-1.25 (increase w/ renal improvement) g protein/kg 61-76 g total protein 20-25 mL/kg 4000-2418 total fluid mLs NUTRITION DIAGNOSIS: * Swallowing difficulty R/T respiratory failure, dysphagia as evidenced by trach/vent dep, PEG dep * Increased kcal/prot needs R/T wound healing as evidenced by admitted w/ multiple pressure injuries per photos, pending eval. CURRENT TF:Nepro @ 45ml/hr x 24 hrs ENTERAL NUTRITION RECOMMENDATIONS: NEPRO to 45ml/hr x 20 hrs to provide 900ml, 1620kcal, 73g prot, 654ml free water * Maintain current TF * HOB over 30 degrees/ water flush per MD ADDITIONAL RECOMMENDATIONS: * Per SNF: HT=63" PS=062 lbs (Vs EMR wt of 165lbs) -> obtain re-calibrated bedscale wt * Wound healing: add Nephrovite x 1 + Vit C 250mg QD add Garo 1pkt BID via GT * Monitor renal fxn and lytes, check phos level (11) Uremia (12) CKD (chronic kidney disease) stage 5, GFR less than 15 ml/min Jonathan Urias Aug 15, 2019 10:11
--- NOTE | 2019-08-15 10:33 | Infectious Diseases Prog Note ---
Assessment/Plan Assessment/Plan antibiotics : linezolid, zosyn A 1. VRE UTI 2. + blood cultures with coag neg staph likely contaminated 3. respiratory failure 4. leucocytosis 5. group G streptococcus, providencia, pseudomonas, serratia pneumonia COVID 19 test negative x 2 P 1. continue linezolid 2 more days 2. continue zosyn 3 more days 3. will follow up cultures Subjective ROS Limited/Unobtainable: Yes Allergies: Coded Allergies: No Known Allergies (Unverified , 06/10/19) Objective Last 24 Hour Vital Signs Date Time Temp Pulse Resp B/P (MAP) Pulse Ox O2 Delivery O2 Flow Rate FiO2 08/15/19 08:27 64 124/47 08/15/19 08:27 124/47 08/15/19 08:00 Mechanical Ventilator 08/15/19 08:00 60 08/15/19 08:00 25 08/15/19 08:00 98.1 64 17 124/47 (72) 100 08/15/19 07:03 61 17 25 08/15/19 04:00 25 08/15/19 04:00 Mechanical Ventilator 08/15/19 04:00 97.3 60 17 130/54 (79) 100 08/15/19 03:41 63 15 25 08/15/19 03:36 62 08/15/19 00:00 97.3 61 20 104/47 (66) 100 08/15/19 00:00 Mechanical Ventilator 08/14/19 23:28 61 08/14/19 22:49 60 17 25 08/14/19 20:11 70 117/50 08/14/19 20:00 Mechanical Ventilator 08/14/19 20:00 25 08/14/19 20:00 97.3 63 18 117/50 (72) 100 08/14/19 19:56 65 16 25 08/14/19 19:04 64 08/14/19 16:02 63 15 25 08/14/19 16:00 25 08/14/19 16:00 65 08/14/19 16:00 97.0 66 18 130/60 (83) 100 08/14/19 16:00 Mechanical Ventilator 08/14/19 12:00 24 08/14/19 12:00 97.2 64 18 122/58 (79) 100 7/6/20 12:00 63 08/14/19 12:00 Mechanical Ventilator 08/14/19 11:12 97.1 64 18 120/62 (81) 100 08/14/19 10:50 66 117/52 (73) 08/14/19 10:46 62 17 25 08/14/19 10:43 61 15 100 08/14/19 10:42 61 15 100 Height (Feet): 6 Height (Inches): 7 Weight (Pounds): 178 HEENT: status post trach Respiratory/Chest: lungs clear Cardiovascular: normal rate, regular rhythm, no gallop/murmur Abdomen: soft, non tender, other - GT Extremities: other - + edema Laboratory Tests Test 08/14/19 12:25 08/14/19 18:02 08/15/19 03:25 POC Whole Blood Glucose 130 MG/DL (74-106) H 175 MG/DL (74-106) H Sodium Level 132 MMOL/L (136-145) L Potassium Level 4.1 MMOL/L (3.5-5.1) Chloride Level 100 MMOL/L (98-107) Carbon Dioxide Level 19 MMOL/L (21-32) L Anion Gap 13 mmol/L (5-15) Blood Urea Nitrogen 151 mg/dL (7-18) H Creatinine 4.2 MG/DL (0.55-1.30) H Estimat Glomerular Filtration Rate 13.8 mL/min (>60) Glucose Level 197 MG/DL (74-106) H Calcium Level 8.5 MG/DL (8.5-10.1) Current Medications Medications (Trade) Dose Ordered Sig/Leonel Route PRN Reason Start Time Stop Time Status Last Admin Dose Admin Acetaminophen (Tylenol) 650 mg Q4H PRN GT Mild Pain / fever 08/09/19 05:30 09/08/19 05:29 Al Hydroxide/Mg Hydroxide (Mylanta) 30 ml FOUR TIMES A DAY PRN GT constipation 08/09/19 06:00 09/08/19 05:29 Ascorbic Acid (Vitamin C) 500 mg DAILY GT 08/09/19 09:00 09/08/19 08:59 08/15/19 08:26 Atorvastatin Calcium (Lipitor) 40 mg BEDTIME GT 08/09/19 21:00 11/07/19 20:59 08/14/19 20:11 Chlorhexidine Gluconate (Felipa-Hex 2%) 1 applic DAILY@2000 TOPIC 08/15/19 20:00 11/13/19 19:59 Clonidine HCl (Catapres Tab) 0.1 mg Q4H PRN GT SBP>150 08/12/19 10:45 11/10/19 06:44 Dextrose (Dextrose 50%) 25 ml Q30M PRN IV Hypoglycemia 08/09/19 07:30 11/07/19 07:29 Dextrose (Dextrose 50%) 50 ml Q30M PRN IV Hypoglycemia 08/09/19 07:30 11/07/19 07:29 Epoetin Andreas (Epoetin Andreas-EPBX(NON ESRD)) 8,000 unit WED-WED-WED SUBQ 08/09/19 21:00 11/07/19 20:59 08/14/19 20:10 Insulin Aspart (NovoLOG) Q6HR SUBQ 08/10/19 00:00 11/07/19 11:29 08/15/19 06:19 Lansoprazole (Prevacid) 30 mg DAILY GT 08/09/19 09:00 09/08/19 08:59 08/15/19 08:26 Linezolid (Zyvox) 600 mg EVERY 12 HOURS GT 08/11/19 11:00 08/16/19 23:59 08/15/19 08:26 Loperamide HCl (Imodium) 2 mg Q4H PRN GT Diarrhea 08/09/19 08:00 09/08/19 07:59 Metoprolol Tartrate (Lopressor) 200 mg Q12HR GT 08/09/19 09:00 11/07/19 08:59 08/14/19 20:11 Minoxidil (Loniten) 5 mg DAILY GT 08/09/19 09:00 11/07/19 08:59 08/13/19 08:42 Multivitamins (Multivitamins W/ Minerals 15ml Liquid) 15 ml DAILY GT 08/09/19 09:00 09/08/19 08:59 08/15/19 08:26 Piperacillin Sod/ Tazobactam Sod 3.375 gm/Sodium Chloride 110 ml @ 27.5 mls/hr Q12H IVPB 08/09/19 06:00 08/17/19 23:59 08/15/19 08:29 Vitamin B Complex/ Vit C/Folic Acid (Nephrovite) 1 tab DAILY GT 08/09/19 09:00 09/08/19 08:59 08/15/19 08:26 Vitamin D (Vitamin D) 1,000 intlu DAILY GT 08/09/19 09:00 09/08/19 08:59 08/15/19 08:27 Zinc Oxide (Zinc Oxide) 1 applic BID TOPIC 08/10/19 18:00 11/08/19 17:59 08/15/19 08:28 Farnaz Lyle MD Aug 15, 2019 10:33
--- NOTE | 2019-08-15 11:40 | NUR ---
CASE MANAGEMENT:REVIEW SI;RIGHT LOWER LOBE PNA. ANEMIA. ESRD. UTI. 97.3 58 17 130/54 100% TRACH/VENT FIO2 @ 25% NA 132 BUN 151 CR 4.2 BG 197 IS;LINEZOLID GT Q12 ZOSYN IV Q12 LONITEN GT PREVACID GT NOVOLOG SUBQ LOPRESSOR GT KEREN STATUS DCP;PATIENT IS FROM [facility]; INPATIENT HEMODIALYSIS
--- NOTE | 2019-08-15 11:53 | NUR ---
*-* INSURANCE *-* UPDATED CLINICALS AND REVIEWS HAVE BEEN FAXED TO: ELIN P:[phone] F:[phone]
--- NOTE | 2019-08-15 13:36 | Nephrology Progress Note ---
Assessment/Plan Plan Sepsis - IV Abx Skin wounds - wound care Pre ESRD - creatinine clearance 19 but true GFR is much lower! Needs HD.For HD today. DW pt's DPOA + HD RN. ROHIT Ramirez. To Arrange ROHIT Ramirez. Subjective Subjective Obtunded Objective Objective Last 24 Hour Vital Signs Date Time Temp Pulse Resp B/P (MAP) Pulse Ox O2 Delivery O2 Flow Rate FiO2 08/15/19 12:00 60 08/15/19 11:59 98.0 58 17 121/58 (79) 100 08/15/19 11:04 58 15 25 08/15/19 08:27 64 124/47 08/15/19 08:27 124/47 08/15/19 08:00 Mechanical Ventilator 08/15/19 08:00 60 08/15/19 08:00 25 08/15/19 08:00 98.1 64 17 124/47 (72) 100 08/15/19 07:03 61 17 25 08/15/19 04:00 25 08/15/19 04:00 Mechanical Ventilator 08/15/19 04:00 97.3 60 17 130/54 (79) 100 08/15/19 03:41 63 15 25 08/15/19 03:36 62 08/15/19 00:00 97.3 61 20 104/47 (66) 100 08/15/19 00:00 Mechanical Ventilator 08/14/19 23:28 61 08/14/19 22:49 60 17 25 08/14/19 20:11 70 117/50 08/14/19 20:00 Mechanical Ventilator 08/14/19 20:00 25 08/14/19 20:00 97.3 63 18 117/50 (72) 100 08/14/19 19:56 65 16 25 08/14/19 19:04 64 08/14/19 16:02 63 15 25 08/14/19 16:00 25 08/14/19 16:00 65 08/14/19 16:00 97.0 66 18 130/60 (83) 100 08/14/19 16:00 Mechanical Ventilator Intake and Output 08/14/19 08/15/19 19:00 07:00 Intake Total 530.0 ml 455.0 ml Output Total 150 ml 350 ml Balance 380.0 ml 105.0 ml IV Total 110.0 ml 110.0 ml Tube Feeding 405 ml 315 ml Other 15 ml 30 ml Output Urine Total 150 ml 350 ml # Bowel Movements 4 Laboratory Tests 08/14/19 18:02: POC Whole Blood Glucose 175H 08/15/19 03:25: Sodium Level 132L, Potassium Level 4.1, Chloride Level 100, Carbon Dioxide Level 19L, Anion Gap 13, Blood Urea Nitrogen 151H, Creatinine 4.2H, Estimat Glomerular Filtration Rate 13.8, Glucose Level 197H, Calcium Level 8.5 Height (Feet): 6 Height (Inches): 7 Weight (Pounds): 178 Objective CV RR Trach clean Lungs CTA Abd SNT. BS + E No CCE Erica Pichardo MD Aug 15, 2019 13:36
--- NOTE | 2019-08-15 19:13 | NUR ---
HAND-OFF: Report given to TAMICA Guerrier. Pt remains stable.
--- NOTE | 2019-08-15 20:00 | NUR ---
NURSE NOTES: Patient obtunded,bedridden.Hemodialysis in progress well tolerated,vital signs stable.Iraida trach to vent at ordered settings well tolerated.oral care and suctioning done. hemodialysis done with 2 liters out.
[2019-08-15] MEDS: Dyna-Hex 2% Top Sol 2oz TOPIC SCH (20:23)
[2019-08-15] MEDS: Atorvastatin 20mg tab GT SCH (20:25)
--- NOTE | 2019-08-15 20:28 | General Progress Note ---
Assessment/Plan Assessment/Plan: Assessment - Anemia - Black stools, but patient on po Iron - stool OB (+) - EGD --> gastritis, Colonoscopy --> not planned since done recently - Renal failure - Sepsis / leukocytosis - Anasarca - resp failure, trach - dysphagia, GT - encephalopathy, contracted Recommendations - Tube feeds - no plans for colonoscopy - Iron panel noted - PPI - abx - supportive care Subjective Allergies: Coded Allergies: No Known Allergies (Unverified , 06/10/19) Subjective Above noted s/p EGD yesterday mild gastritis seen back on feeds d/w RN Objective Last 24 Hour Vital Signs Date Time Temp Pulse Resp B/P (MAP) Pulse Ox O2 Delivery O2 Flow Rate FiO2 08/15/19 20:26 75 147/64 08/15/19 18:45 69 18 25 08/15/19 16:00 25 08/15/19 16:00 Mechanical Ventilator 08/15/19 16:00 64 08/15/19 16:00 97.6 61 17 131/59 (83) 100 08/15/19 14:41 62 15 25 08/15/19 12:00 Mechanical Ventilator 08/15/19 12:00 25 08/15/19 12:00 60 08/15/19 11:59 98.0 58 17 121/58 (79) 100 08/15/19 11:04 58 15 25 08/15/19 08:27 64 124/47 08/15/19 08:27 124/47 08/15/19 08:00 Mechanical Ventilator 08/15/19 08:00 60 08/15/19 08:00 25 08/15/19 08:00 98.1 64 17 124/47 (72) 100 08/15/19 07:03 61 17 25 08/15/19 04:00 25 08/15/19 04:00 Mechanical Ventilator 08/15/19 04:00 97.3 60 17 130/54 (79) 100 08/15/19 03:41 63 15 25 08/15/19 03:36 62 08/15/19 00:00 97.3 61 20 104/47 (66) 100 08/15/19 00:00 Mechanical Ventilator 08/14/19 23:28 61 08/14/19 22:49 60 17 25 Intake and Output 08/14/19 08/15/19 19:00 07:00 Intake Total 530.0 ml 455.0 ml Output Total 150 ml 350 ml Balance 380.0 ml 105.0 ml IV Total 110.0 ml 110.0 ml Tube Feeding 405 ml 315 ml Other 15 ml 30 ml Output Urine Total 150 ml 350 ml # Bowel Movements 4 Laboratory Tests 08/15/19 03:25: Sodium Level 132L, Potassium Level 4.1, Chloride Level 100, Carbon Dioxide Level 19L, Anion Gap 13, Blood Urea Nitrogen 151H, Creatinine 4.2H, Estimat Glomerular Filtration Rate 13.8, Glucose Level 197H, Calcium Level 8.5 Height (Feet): 6 Height (Inches): 7 Weight (Pounds): 178 Objective Debilitated AA man NCAT (+) trach coarse BS RR abd distended, anasarca, (+) GT ext (+) edema contracted Ronny Mustafa MD Aug 15, 2019 20:28
[2019-08-16 04:33] VITALS: BP 132/54
[2019-08-16] MEDS: NovoLOG Insulin Flexpen SUBQ SCH ×4 (05:42→23:44)
[2019-08-16] MEDS ORDERED: Heparin Sod 1000 units/ml 10ml IV PRN (06:00)
[2019-08-16] MEDS ORDERED: Heparin 1000 units/ml 1ml Vial INJ PRN (06:00)
--- NOTE | 2019-08-16 07:01 | Hematology/Onc Progress Note ---
Assessment/Plan Assessment/Plan Assessment/recs # Leukocytosis - with multiple infections, VRE UTI --> wbc trend 33-->28 --> on abx, linezolid and zosyn --> + blood cultures with coag neg staph likely contaminated --> as per id recs --> has ordered a flow cytometry (with pathology) to r/o leukemia # Anemia due to chronic disease/kidney disease as well, gi bleed + occult + noted --> was on iron in the past, now on hold --> has been started on epogen --> as per renal care --> egd done and shows gastritis --> on ppi --> egd showed gastritis, colo recently done # Respiratory failure --> per pulm, s/p trach --> COVID 19 test negative x 2 # Dysphagia s/p gtube with nepro --> per gi # ESRD with r fem julito --> hd as per renal Appreciate consultation and dw Rn Subjective HEENT: Denies: no symptoms, eye pain, blurred vision, tearing, double vision, ear pain, ear discharge, nose pain, nose congestion, throat pain, throat swelling, mouth pain, mouth swelling, other Respiratory: Denies: no symptoms, cough, shortness of breath, SOB with excertion, SOB at rest, sputum, wheezing, other Gastrointestinal/Abdominal: Denies: no symptoms, abdomen distended, abdominal pain, black stools, tarry stools, blood in stool, constipated, diarrhea, difficulty swallowing, nausea, poor appetite, poor fluid intake, rectal bleeding , vomiting, other Genitourinary: Denies: no symptoms, burning, discharge, frequency, flank pain, hematuria, incontinence, pain, urgency, other Neurologic/Psychiatric: Denies: no symptoms, anxiety, depressed, emotional problems, headache, numbness, paresthesia, pre-existing deficit, seizure, tingling, tremors, weakness, other Allergies: Coded Allergies: No Known Allergies (Unverified , 06/10/19) Subjective 08/15 meds noted, no bleeding, hgb 8.8, wbc 28, path flow pending Objective Objective Current Medications Medications (Trade) Dose Ordered Sig/Leonel Route PRN Reason Start Time Stop Time Status Last Admin Dose Admin Acetaminophen (Tylenol) 650 mg Q4H PRN GT Mild Pain / fever 08/09/19 05:30 09/08/19 05:29 Al Hydroxide/Mg Hydroxide (Mylanta) 30 ml FOUR TIMES A DAY PRN GT constipation 08/09/19 06:00 09/08/19 05:29 Ascorbic Acid (Vitamin C) 500 mg DAILY GT 08/09/19 09:00 09/08/19 08:59 08/15/19 08:26 Atorvastatin Calcium (Lipitor) 40 mg BEDTIME GT 08/09/19 21:00 11/07/19 20:59 08/15/19 20:25 Chlorhexidine Gluconate (Felipa-Hex 2%) 1 applic DAILY@1999 TOPIC 08/15/19 20:00 11/13/19 19:59 08/15/19 20:23 Clonidine HCl (Catapres Tab) 0.1 mg Q4H PRN GT SBP>150 08/12/19 10:45 11/10/19 06:44 Dextrose (Dextrose 50%) 25 ml Q30M PRN IV Hypoglycemia 08/09/19 07:30 11/07/19 07:29 Dextrose (Dextrose 50%) 50 ml Q30M PRN IV Hypoglycemia 08/09/19 07:30 11/07/19 07:29 Epoetin Andreas (Epoetin Andreas-EPBX(NON ESRD)) 8,000 unit WED-WED-WED SUBQ 08/09/19 21:00 11/07/19 20:59 08/14/19 20:10 Heparin Sodium (Porcine) (Heparin Sod 1000 units/ml 10ml) 2,000 unit ONCE PRN IV HD 08/16/19 06:00 08/16/19 23:59 Heparin Sodium (Porcine) (Heparin) 1,000 unit POSTHD PRN INJ POST HD 08/16/19 06:00 08/16/19 23:59 Insulin Aspart (NovoLOG) Q6HR SUBQ 08/10/19 00:00 11/07/19 11:29 08/16/19 05:42 Lansoprazole (Prevacid) 30 mg DAILY GT 08/09/19 09:00 09/08/19 08:59 08/15/19 08:26 Linezolid (Zyvox) 600 mg EVERY 12 HOURS GT 08/11/19 11:00 08/16/19 23:59 08/15/19 20:26 Loperamide HCl (Imodium) 2 mg Q4H PRN GT Diarrhea 08/09/19 08:00 09/08/19 07:59 Metoprolol Tartrate (Lopressor) 200 mg Q12HR GT 08/09/19 09:00 11/07/19 08:59 08/15/19 20:26 Minoxidil (Loniten) 5 mg DAILY GT 08/09/19 09:00 11/07/19 08:59 08/13/19 08:42 Multivitamins (Multivitamins W/ Minerals 15ml Liquid) 15 ml DAILY GT 08/09/19 09:00 09/08/19 08:59 08/15/19 08:26 Piperacillin Sod/ Tazobactam Sod 3.375 gm/Sodium Chloride 110 ml @ 27.5 mls/hr Q12H IVPB 08/09/19 06:00 08/17/19 23:59 08/15/19 20:24 Sodium Chloride 1,000 ml @ 500 mls/hr Q2H PRN IVLG sbp<90 during hd 08/16/19 06:00 08/16/19 23:59 Vitamin B Complex/ Vit C/Folic Acid (Nephrovite) 1 tab DAILY GT 08/09/19 09:00 09/08/19 08:59 08/15/19 08:26 Vitamin D (Vitamin D) 1,000 intlu DAILY GT 08/09/19 09:00 09/08/19 08:59 08/15/19 08:27 Zinc Oxide (Zinc Oxide) 1 applic BID TOPIC 08/10/19 18:00 11/08/19 17:59 08/15/19 18:39 Last 24 Hour Vital Signs Date Time Temp Pulse Resp B/P (MAP) Pulse Ox O2 Delivery O2 Flow Rate FiO2 08/16/19 04:33 97.5 64 22 132/54 (80) 100 08/16/19 04:08 Mechanical Ventilator 08/16/19 04:00 25 08/16/19 03:53 64 08/16/19 03:02 70 16 25 08/16/19 00:07 Mechanical Ventilator 08/16/19 00:00 63 08/15/19 23:57 97.5 63 18 123/63 (83) 100 08/15/19 22:49 63 16 25 08/15/19 20:30 97.5 83 18 147/64 (91) 100 08/15/19 20:26 75 147/64 08/15/19 20:00 72 08/15/19 20:00 25 08/15/19 20:00 Mechanical Ventilator 08/15/19 18:45 69 18 25 08/15/19 16:00 25 08/15/19 16:00 Mechanical Ventilator 08/15/19 16:00 64 08/15/19 16:00 97.6 61 17 131/59 (83) 100 08/15/19 14:41 62 15 25 08/15/19 12:00 Mechanical Ventilator 08/15/19 12:00 25 08/15/19 12:00 60 08/15/19 11:59 98.0 58 17 121/58 (79) 100 08/15/19 11:04 58 15 25 08/15/19 08:27 64 124/47 08/15/19 08:27 124/47 08/15/19 08:00 Mechanical Ventilator 08/15/19 08:00 60 08/15/19 08:00 25 08/15/19 08:00 98.1 64 17 124/47 (72) 100 08/15/19 07:03 61 17 25 08/15/19 04:00 25 08/15/19 04:00 Mechanical Ventilator 08/15/19 04:00 97.3 60 17 130/54 (79) 100 08/15/19 03:41 63 15 25 08/15/19 03:36 62 08/15/19 00:00 97.3 61 20 104/47 (66) 100 08/15/19 00:00 Mechanical Ventilator 08/14/19 23:28 61 08/14/19 22:49 60 17 25 08/14/19 20:11 70 117/50 08/14/19 20:00 Mechanical Ventilator 08/14/19 20:00 25 08/14/19 20:00 97.3 63 18 117/50 (72) 100 08/14/19 19:56 65 16 25 08/14/19 19:04 64 08/14/19 16:02 63 15 25 08/14/19 16:00 25 08/14/19 16:00 65 08/14/19 16:00 97.0 66 18 130/60 (83) 100 08/14/19 16:00 Mechanical Ventilator 08/14/19 12:00 24 08/14/19 12:00 97.2 64 18 122/58 (79) 100 08/14/19 12:00 63 08/14/19 12:00 Mechanical Ventilator 08/14/19 11:12 97.1 64 18 120/62 (81) 100 08/14/19 10:50 66 117/52 (73) 08/14/19 10:46 62 17 25 08/14/19 10:43 61 15 100 08/14/19 10:42 61 15 100 08/14/19 10:30 64 89/43 (58) 08/14/19 09:09 61 122/52 (75) 08/14/19 09:00 60 118/41 08/14/19 09:00 118/41 08/14/19 08:00 Mechanical Ventilator 08/14/19 08:00 64 08/14/19 08:00 24 08/14/19 07:09 60 15 25 08/14/19 07:07 97.1 60 18 118/41 (66) 100 Intake and Output 08/15/19 08/16/19 19:00 07:00 Intake Total 615.0 ml 470.0 ml Output Total 150 ml 2000 ml Balance 465.0 ml -1530.0 ml IV Total 110.0 ml 110.0 ml Tube Feeding 405 ml 360 ml Other 100 ml Output Urine Total 150 ml Hemodialysis UF 2000 ml # Bowel Movements 2 4 Labs Test 08/13/19 11:17 08/13/19 17:08 08/13/19 23:21 08/14/19 04:50 POC Whole Blood Glucose 171 MG/DL (74-106) 163 MG/DL (74-106) 149 MG/DL (74-106) White Blood Count 28.4 K/UL (4.8-10.8) Red Blood Count 3.20 M/UL (4.70-6.10) Hemoglobin 8.8 G/DL (14.2-18.0) Hematocrit 28.1 % (42.0-52.0) Mean Corpuscular Volume 88 FL (80-99) Mean Corpuscular Hemoglobin 27.6 PG (27.0-31.0) Mean Corpuscular Hemoglobin Concent 31.4 G/DL (32.0-36.0) Red Cell Distribution Width 17.1 % (11.6-14.8) Platelet Count 389 K/UL (150-450) Mean Platelet Volume 5.3 FL (6.5-10.1) Neutrophils (%) (Auto) % (45.0-75.0) Lymphocytes (%) (Auto) % (20.0-45.0) Monocytes (%) (Auto) % (1.0-10.0) Eosinophils (%) (Auto) % (0.0-3.0) Basophils (%) (Auto) % (0.0-2.0) Differential Total Cells Counted 100 Neutrophils % (Manual) 82 % (45-75) Lymphocytes % (Manual) 10 % (20-45) Monocytes % (Manual) 3 % (1-10) Eosinophils % (Manual) 5 % (0-3) Basophils % (Manual) 0 % (0-2) Band Neutrophils 0 % (0-8) Platelet Estimate Adequate Platelet Morphology Normal Polychromasia 1+ Hypochromasia 1+ Anisocytosis 1+ Prothrombin Time 13.3 SEC (9.30-11.50) Prothromb Time International Ratio 1.2 (0.9-1.1) Activated Partial Thromboplast Time 28 SEC (23-33) Sodium Level 133 MMOL/L (136-145) Potassium Level 4.9 MMOL/L (3.5-5.1) Chloride Level 102 MMOL/L (98-107) Carbon Dioxide Level 20 MMOL/L (21-32) Anion Gap 12 mmol/L (5-15) Blood Urea Nitrogen 157 mg/dL (7-18) Creatinine 4.0 MG/DL (0.55-1.30) Estimat Glomerular Filtration Rate 14.6 mL/min (>60) Glucose Level 145 MG/DL (74-106) Calcium Level 8.2 MG/DL (8.5-10.1) Total Bilirubin 0.3 MG/DL (0.2-1.0) Aspartate Amino Transf (AST/SGOT) 22 U/L (15-37) Alanine Aminotransferase (ALT/SGPT) 20 U/L (12-78) Alkaline Phosphatase 153 U/L (46-116) Total Protein 6.2 G/DL (6.4-8.2) Albumin 1.4 G/DL (3.4-5.0) Globulin 4.8 g/dL Albumin/Globulin Ratio 0.3 (1.0-2.7) Test 08/14/19 04:56 08/14/19 05:34 08/14/19 12:25 08/14/19 18:02 Hepatitis B Surface Antigen Negative (NEGATIVE) POC Whole Blood Glucose 139 MG/DL (74-106) 130 MG/DL (74-106) 175 MG/DL (74-106) Test 08/15/19 03:25 08/15/19 11:56 08/15/19 18:36 08/15/19 23:25 Sodium Level 132 MMOL/L (136-145) Potassium Level 4.1 MMOL/L (3.5-5.1) Chloride Level 100 MMOL/L (98-107) Carbon Dioxide Level 19 MMOL/L (21-32) Anion Gap 13 mmol/L (5-15) Blood Urea Nitrogen 151 mg/dL (7-18) Creatinine 4.2 MG/DL (0.55-1.30) Estimat Glomerular Filtration Rate 13.8 mL/min (>60) Glucose Level 197 MG/DL (74-106) Calcium Level 8.5 MG/DL (8.5-10.1) POC Whole Blood Glucose 164 MG/DL (74-106) 144 MG/DL (74-106) Test 08/16/19 05:38 Height (Feet): 6 Height (Inches): 7 Weight (Pounds): 166 Objective Physical Exam General Appearance: nad, Chronically Ill Head: normocephalic Eyes: right eye PERRL - Will not open left eye ENT: moist mucus membranes Neck: other - submandibular mass R, fairly rigid with resistance to rotation to L, tracheotomy Respiratory: decreased breath sounds, crackles, other - pacemaker Cardiovascular: regular rate, rhythm, edema - anasarca Gastrointestinal: non tender, distended, other - G tube Genitourinary: other Musculoskeletal: other - Contractures all extremities Neurologic: sensory intact, motor weakness, responsive Psychiatric: other Skin: Decubitus/Ulcer - Stage III right elbow, stage III left elbow, stage II sacrum, stage III scrotum, warm/dry Fitz Campos MD Aug 16, 2019 07:01
--- NOTE | 2019-08-16 07:49 | NUR ---
HAND-OFF: Report given to TAMICA Ennis.
--- NOTE | 2019-08-16 07:50 | NUR ---
NURSE NOTES: Report received from Fareed Unger RN.Pt resting in bed asleep,noted no resp distress with trach tube to vent ,ordered vent settings tolerated,GTF Nepro at 45 ml/hr x 20 hrs , no residual noted,Avalos cath draining yellow urine,skin warm and dry IV site to RT W intact ,SR up x2 HOB elevated bed lock in lowest position,will continue with plans of care.
[2019-08-16 08:00] VITALS: BP 134/53
[2019-08-16] MEDS: Piperacillin/Tazobactam 3.375 GM in NS 110 ML IVPB SCH ×2 (08:56→20:18)
[2019-08-16] MEDS: Nephrovite tab (Rena-Vite) GT SCH (08:57)
[2019-08-16] MEDS: Vitamin D 1000 IU Tab GT SCH (08:57)
[2019-08-16] MEDS: Multivitamins W/Minerals 15 ML UDC GT SCH (08:57)
[2019-08-16] MEDS: Ascorbic Acid 500mg tab GT SCH (08:57)
--- NOTE | 2019-08-16 08:57 | Surgery Progress Note ---
Surgery Progress Note Subjective Procedure Performed Right femoral temporary hemodialysis catheter insertion Additional Comments no acute events line okay HD as per renal vitals stable Objective Last 24 Hour Vital Signs Date Time Temp Pulse Resp B/P (MAP) Pulse Ox O2 Delivery O2 Flow Rate FiO2 08/16/19 08:00 25 08/16/19 08:00 96.4 64 17 134/53 (80) 100 08/16/19 04:33 97.5 64 22 132/54 (80) 100 08/16/19 04:08 Mechanical Ventilator 08/16/19 04:00 25 08/16/19 03:53 64 08/16/19 03:02 70 16 25 08/16/19 00:07 Mechanical Ventilator 08/16/19 00:00 63 08/15/19 23:57 97.5 63 18 123/63 (83) 100 08/15/19 22:49 63 16 25 08/15/19 20:30 97.5 83 18 147/64 (91) 100 08/15/19 20:26 75 147/64 08/15/19 20:00 72 08/15/19 20:00 25 08/15/19 20:00 Mechanical Ventilator 08/15/19 18:45 69 18 25 08/15/19 16:00 25 08/15/19 16:00 Mechanical Ventilator 08/15/19 16:00 64 08/15/19 16:00 97.6 61 17 131/59 (83) 100 08/15/19 14:41 62 15 25 08/15/19 12:00 Mechanical Ventilator 08/15/19 12:00 25 08/15/19 12:00 60 08/15/19 11:59 98.0 58 17 121/58 (79) 100 08/15/19 11:04 58 15 25 I&O Intake and Output 08/15/19 08/16/19 19:00 07:00 Intake Total 615.0 ml 665.0 ml Output Total 150 ml 2050 ml Balance 465.0 ml -1385.0 ml Free Water 60 ml IV Total 110.0 ml 110.0 ml Tube Feeding 405 ml 495 ml Other 100 ml Output Urine Total 150 ml 50 ml Hemodialysis UF 2000 ml # Bowel Movements 2 4 Dressing: other Wound: other Cardiovascular: RSR Respiratory: decreased breath sounds Abdomen: soft, non-tender, present bowel sounds Extremities: no cyanosis Laboratory Tests Test 08/15/19 11:56 08/15/19 18:36 08/15/19 23:25 08/16/19 05:38 POC Whole Blood Glucose 164 MG/DL (74-106) H 144 MG/DL (74-106) H Pending Pending Plan Problems: (1) Anemia (2) Hyponatremia (3) Leukocytosis Assessment & Plan: Tracheostomy, left chest pacemaker are again demonstrated. There is bilateral interstitial and airspace disease and bilateral pleural fluid again demonstrated. This appears more severe than on the prior study. Bilateral interstitial and airspace infiltrates versus edema. Bilateral pleural effusions Leukocytosis, anemia, tachycardia, abnormal labs. Wound evaluated and likely etiology of patient's sepsis. Leukocytosis etiology work-up antibiotics per infectious disease Appreciate nephrology input transfuse with dialysis We will follow with recommendations thank you allowing participation's care plan HD access temp HD discussed with medical teams line okay HD as per renal (4) Ventilator dependent (5) Right lower lobe pneumonia (6) Hypokalemia (7) Hyperkalemia (8) Anasarca (9) Decubitus skin ulcer Assessment & Plan: pt presented on admission with generalized edemae.Skin assessed under tracheostomy and no areas of concerns noted. GT Insertion is marginally erythematous with small amt slough at stoma. Unstageable Pressure Injury R elbow. Base of wound is 100% yellow slough, Borders are erythematous. Wound oozing small amt haemopurulent exudate.Darker skin tone without elevation in skin temp or erythema periwound. Pt's penis and scrotum are grossly edematous and enlarged and weeping serous exudate from numerous sites both from penis and scrotum. Two small open wounds noted at base of at base of shaft of penis ,and contreras aspect of scrotum. Both wounds oozing large amt sanguineous and serosanguineous exudate. Multiple open wounds with Biofilm at base of each wounds noted to contreras/lateral,inferior and posterior aspects of scrotum. These wounds noted to be oozing moderate amts of serosanguineous exudate. Hypertrophic scar with scattered areas of hyperpigmentation noted to Sacrum. DTPI noted to L Buttocks (L)7cm x (W)9cm. Base of wound is purple and indurated.Darker skin tone without erythema, induration or fluctuance R and L ischial tuberosities. Both heels are boggy with non-blanchable erythema. Tx.Plan: Cleanse wound R elbow with Saline. Apply TheraHoney, Apply Moisture Barrier Paste periwound. Cover with Optifoam drsg.Change Daily and prn. Wash GT site with soap and water.Pat dry. Apply Zinc Oxide Paste to GT site Daily. Leave Open to Air. Apply Zinc Oxide Paste to entire Scrotum, Place ABD pads to R and L lateral, and posterior aspects of scrotum TWICE daily. Apply Cavilon Skin Barrier to malleoli and both Heels. Cover each site with Optifoam drsgs. Change every 7 days and prn. Reposition at least every 2hours or as tolerated. Off-load heels with Pillows. APM/BECCA Mattress overlay. (10) Malnutrition Assessment & Plan: DAILY ESTIMATED NEEDS: Needs based on Renal, critical care, wound/ 61kg 22-28 kcals/kg [id number] total kcals 1-1.25 (increase w/ renal improvement) g protein/kg 61-76 g total protein 20-25 mL/kg 1527-2600 total fluid mLs NUTRITION DIAGNOSIS: * Swallowing difficulty R/T respiratory failure, dysphagia as evidenced by trach/vent dep, PEG dep * Increased kcal/prot needs R/T wound healing as evidenced by admitted w/ multiple pressure injuries per photos, pending eval. CURRENT TF:Nepro @ 45ml/hr x 24 hrs ENTERAL NUTRITION RECOMMENDATIONS: NEPRO to 45ml/hr x 20 hrs to provide 900ml, 1620kcal, 73g prot, 654ml free water * Maintain current TF * HOB over 30 degrees/ water flush per MD ADDITIONAL RECOMMENDATIONS: * Per SNF: HT=63" TD=491 lbs (Vs EMR wt of 165lbs) -> obtain re-calibrated bedscale wt * Wound healing: add Nephrovite x 1 + Vit C 250mg QD add Garo 1pkt BID via GT * Monitor renal fxn and lytes, check phos level (11) Uremia (12) CKD (chronic kidney disease) stage 5, GFR less than 15 ml/min Jonathan Urias Aug 16, 2019 08:57
[2019-08-16] MEDS: Minoxidil 2.5mg tab GT SCH (08:58)
[2019-08-16] MEDS: Zinc Oxide Oint 2oz TOPIC SCH ×2 (08:59→18:27)
[2019-08-16] MEDS: Metoprolol Tartrate 100mg tab GT SCH ×2 (08:59→20:16)
--- NOTE | 2019-08-16 10:12 | NUR ---
CASE MANAGEMENT: REVIEW SI: RIGHT LOWER LOBE PNA . ESRD on HD TUNNEL CATH PLACEMENT T 97.5 HR 64 RR 22 BP 132/54 SAT 100% MECH VENT FIO2 25 GLUCOSE 194 IS: ZOSYN IV Q12HR ZYVOX GT Q12HR EPOETIN SUBQ QMWF HEPARIN IV PRN HD HD NEEDED PATIENT ADMITTED TO STEP DOWN UNIT DCP: PATIENT IS FROM [facility]
--- NOTE | 2019-08-16 10:36 | Infectious Diseases Prog Note ---
"Assessment/Plan Assessment/Plan antibiotics : linezolid, zosyn A 1. VRE UTI 2. + blood cultures with coag neg staph likely contaminated 3. respiratory failure 4. leucocytosis 5. group G streptococcus, providencia, pseudomonas, serratia pneumonia COVID 19 test negative x 2 6. renal failure on HD P 1. continue linezolid 1 more day 2. continue zosyn [address] chest | abdomen | pelvis 4. stool c.diff 5. will follow up cultures Subjective ROS Limited/Unobtainable: Yes Allergies: Coded Allergies: No Known Allergies (Unverified , 06/10/19) Objective Last 24 Hour Vital Signs Date Time Temp Pulse Resp B/P (MAP) Pulse Ox O2 Delivery O2 Flow Rate FiO2 08/16/19 08:59 64 134/53 08/16/19 08:58 134/53 08/16/19 08:00 25 08/16/19 08:00 96.4 64 17 134/53 (80) 100 08/16/19 07:10 62 15 25 08/16/19 04:33 97.5 64 22 132/54 (80) 100 08/16/19 04:08 Mechanical Ventilator 08/16/19 04:00 25 08/16/19 03:53 64 08/16/19 03:02 70 16 25 08/16/19 00:07 Mechanical Ventilator 08/16/19 00:00 63 08/15/19 23:57 97.5 63 18 123/63 (83) 100 08/15/19 22:49 63 16 25 08/15/19 20:30 97.5 83 18 147/64 (91) 100 08/15/19 20:26 75 147/64 08/15/19 20:00 72 08/15/19 20:00 25 08/15/19 20:00 Mechanical Ventilator 08/15/19 18:45 69 18 25 08/15/19 16:00 25 08/15/19 16:00 Mechanical Ventilator 08/15/19 16:00 64 08/15/19 16:00 97.6 61 17 131/59 (83) 100 08/15/19 14:41 62 15 25 08/15/19 12:00 Mechanical Ventilator 08/15/19 12:00 25 08/15/19 12:00 60 7/7/20 11:59 98.0 58 17 121/58 (79) 100 08/15/19 11:04 58 15 25 Height (Feet): 6 Height (Inches): 7 Weight (Pounds): 166 HEENT: status post trach Respiratory/Chest: lungs clear Cardiovascular: normal rate, regular rhythm, no gallop/murmur Abdomen: soft, non tender, other - GT Extremities: other - + edema Laboratory Tests Test 08/15/19 11:56 08/15/19 18:36 08/15/19 23:25 08/16/19 05:38 POC Whole Blood Glucose 164 MG/DL (74-106) H 144 MG/DL (74-106) H Pending Pending Current Medications Medications (Trade) Dose Ordered Sig/Leonel Route PRN Reason Start Time Stop Time Status Last Admin Dose Admin Acetaminophen (Tylenol) 650 mg Q4H PRN GT Mild Pain / fever 08/09/19 05:30 09/08/19 05:29 Al Hydroxide/Mg Hydroxide (Mylanta) 30 ml FOUR TIMES A DAY PRN GT constipation 08/09/19 06:00 09/08/19 05:29 Ascorbic Acid (Vitamin C) 500 mg DAILY GT 08/09/19 09:00 09/08/19 08:59 08/16/19 08:57 Atorvastatin Calcium (Lipitor) 40 mg BEDTIME GT 08/09/19 21:00 11/07/19 20:59 08/15/19 20:25 Chlorhexidine Gluconate (Felipa-Hex 2%) 1 applic DAILY@2000 TOPIC 08/15/19 20:00 11/13/19 19:59 08/15/19 20:23 Clonidine HCl (Catapres Tab) 0.1 mg Q4H PRN GT SBP>150 08/12/19 10:45 11/10/19 06:44 Dextrose (Dextrose 50%) 25 ml Q30M PRN IV Hypoglycemia 08/09/19 07:30 11/07/19 07:29 Dextrose (Dextrose 50%) 50 ml Q30M PRN IV Hypoglycemia 08/09/19 07:30 11/07/19 07:29 Epoetin Andreas (Epoetin Andreas-EPBX(NON ESRD)) 8,000 unit WED-WED-WED SUBQ 08/09/19 21:00 11/07/19 20:59 08/14/19 20:10 Heparin Sodium (Porcine) (Heparin Sod 1000 units/ml 10ml) 2,000 unit ONCE PRN IV HD 08/16/19 06:00 08/16/19 23:59 Heparin Sodium (Porcine) (Heparin) 1,000 unit POSTHD PRN INJ POST HD 08/16/19 06:00 08/16/19 23:59 Insulin Aspart (NovoLOG) Q6HR SUBQ 08/10/19 00:00 11/07/19 11:29 08/16/19 05:42 Lansoprazole (Prevacid) 30 mg DAILY GT 08/09/19 09:00 09/08/19 08:59 08/16/19 08:57 Linezolid (Zyvox) 600 mg EVERY 12 HOURS GT 08/11/19 11:00 08/16/19 23:59 08/16/19 08:57 Loperamide HCl (Imodium) 2 mg Q4H PRN GT Diarrhea 08/09/19 08:00 09/08/19 07:59 Metoprolol Tartrate (Lopressor) 200 mg Q12HR GT 08/09/19 09:00 11/07/19 08:59 08/16/19 08:59 Minoxidil (Loniten) 5 mg DAILY GT 08/09/19 09:00 11/07/19 08:59 08/16/19 08:58 Multivitamins (Multivitamins W/ Minerals 15ml Liquid) 15 ml DAILY GT 08/09/19 09:00 09/08/19 08:59 08/16/19 08:57 Piperacillin Sod/ Tazobactam Sod 3.375 gm/Sodium Chloride 110 ml @ 27.5 mls/hr Q12H IVPB 08/09/19 06:00 08/17/19 23:59 08/16/19 08:56 Sodium Chloride 1,000 ml @ 500 mls/hr Q2H PRN IVLG sbp<90 during hd 08/16/19 06:00 08/16/19 23:59 Vitamin B Complex/ Vit C/Folic Acid (Nephrovite) 1 tab DAILY GT 08/09/19 09:00 09/08/19 08:59 08/16/19 08:57 Vitamin D (Vitamin D) 1,000 intlu DAILY GT 7/1/20 09:00 09/08/19 08:59 08/16/19 08:57 Zinc Oxide (Zinc Oxide) 1 applic BID TOPIC 08/10/19 18:00 11/08/19 17:59 08/16/19 08:59 Farnaz Lyle MD Aug 16, 2019 10:36"
--- NOTE | 2019-08-16 10:39 | NUR ---
*-* INSURANCE *-* UPDATED CLINICALS AND REVIEWS HAVE BEEN FAXED TO: [facility] P:[phone] F:[phone]
[2019-08-16 12:00] VITALS: BP 105/43
[2019-08-16] MEDS ORDERED: Omnipaque-300 100ml vial INJ ONE (12:00)
--- NOTE | 2019-08-16 12:00 | NUR ---
NURSE NOTES: Oral care done oral/tracheal secretions suctioned PRN,pulled up ,turned and repositioned .
--- NOTE | 2019-08-16 13:10 | NUR ---
RD ASSESSMENT & RECOMMENDATIONS SEE CARE ACTIVITY FOR COMPLETE ASSESSMENT DAILY ESTIMATED NEEDS: Needs based on Renal, critical care, wound/ 61kg 22-30 kcals/kg 3218-6705 total kcals 1.25-2 g protein/kg 76-122 g total protein Fluid per MD, now on HD NUTRITION DIAGNOSIS: * Swallowing difficulty R/T respiratory failure, dysphagia as evidenced by trach/vent dep, PEG dep * Increased kcal/prot needs R/T wound healing as evidenced by admitted w/ multiple pressure injuries per photos, pending eval. CURRENT TF:Nepro @ 45ml/hr x 20 hrs ENTERAL NUTRITION RECOMMENDATIONS: NEPRO to 45ml/hr x 22 hrs to provide 990ml, 1782kcal, 80g prot, 720ml free water * Maintain current TF rate, rec goal of 22 hrs for 2 hrs bowel rest d/t diarrhea. * Meets 100% est needs * HOB over 30 degrees/ water flush per MD ADDITIONAL RECOMMENDATIONS: * Per SNF: HT=63" LA=019 lbs (Vs EMR wt of 165lbs) -> obtain re-calibrated bedscale wt * Wound healing: add Nephrovite x 1 + Vit C 250mg QD + Garo 1pkt BID via GT * Monitor renal fxn and lytes, check phos level- now on HD .
--- NOTE | 2019-08-16 13:12 | NUR ---
RD ASSESSMENT & RECOMMENDATIONS SEE CARE ACTIVITY FOR COMPLETE ASSESSMENT DAILY ESTIMATED NEEDS: Needs based on Renal, critical care, wound/ 61kg 22-30 kcals/kg 8247-2187 total kcals 1.25-2 g protein/kg 76-122 g total protein Fluid per MD, now on HD NUTRITION DIAGNOSIS: * Swallowing difficulty R/T respiratory failure, dysphagia as evidenced by trach/vent dep, PEG dep * Increased kcal/prot needs R/T wound healing as evidenced by admitted w/ multiple pressure injuries per photos, pending eval. CURRENT TF:Nepro @ 45ml/hr ENTERAL NUTRITION RECOMMENDATIONS: NEPRO to 45ml/hr x 22 hrs to provide 990ml, 1782kcal, 80g prot, 720ml free water * Maintain current TF rate, rec goal of 22 hrs for 2 hrs bowel rest d/t diarrhea. * Meets 100% est needs * HOB over 30 degrees/ water flush per MD ADDITIONAL RECOMMENDATIONS: * Per SNF: HT=63" VP=237 lbs (Vs EMR wt of 165lbs) -> obtain re-calibrated bedscale wt * Wound healing: add Nephrovite x 1 + Vit C 250mg QD + Garo 1pkt BID via GT * Monitor renal fxn and lytes, check phos level- now on HD .
--- NOTE | 2019-08-16 14:00 | NUR ---
NURSE NOTES: Pt with diarrhea stools ,kept dry and clean,stools sent for C-
--- NOTE | 2019-08-16 14:08 | Nephrology Progress Note ---
Assessment/Plan Plan Sepsis - IV Abx Skin wounds - wound care Pre ESRD - HD now TTS. Subjective Subjective Obtunded Objective Objective Last 24 Hour Vital Signs Date Time Temp Pulse Resp B/P (MAP) Pulse Ox O2 Delivery O2 Flow Rate FiO2 08/16/19 12:18 25 08/16/19 12:00 97.0 58 18 105/43 (63) 100 08/16/19 12:00 Mechanical Ventilator 15.0 08/16/19 11:30 58 08/16/19 11:01 59 16 25 08/16/19 08:59 64 134/53 08/16/19 08:58 134/53 08/16/19 08:00 64 08/16/19 08:00 Mechanical Ventilator 15.0 08/16/19 08:00 25 08/16/19 08:00 96.4 64 17 134/53 (80) 100 08/16/19 07:10 62 15 25 08/16/19 04:33 97.5 64 22 132/54 (80) 100 08/16/19 04:08 Mechanical Ventilator 08/16/19 04:00 25 08/16/19 03:53 64 08/16/19 03:02 70 16 25 08/16/19 00:07 Mechanical Ventilator 08/16/19 00:00 63 08/15/19 23:57 97.5 63 18 123/63 (83) 100 08/15/19 22:49 63 16 25 08/15/19 20:30 97.5 83 18 147/64 (91) 100 08/15/19 20:26 75 147/64 08/15/19 20:00 72 08/15/19 20:00 25 08/15/19 20:00 Mechanical Ventilator 08/15/19 18:45 69 18 25 08/15/19 16:00 25 08/15/19 16:00 Mechanical Ventilator 08/15/19 16:00 64 08/15/19 16:00 97.6 61 17 131/59 (83) 100 08/15/19 14:41 62 15 25 Intake and Output 08/15/19 08/16/19 19:00 07:00 Intake Total 615.0 ml 665.0 ml Output Total 150 ml 2050 ml Balance 465.0 ml -1385.0 ml Free Water 60 ml IV Total 110.0 ml 110.0 ml Tube Feeding 405 ml 495 ml Other 100 ml Output Urine Total 150 ml 50 ml Hemodialysis UF 2000 ml # Bowel Movements 2 4 Laboratory Tests 08/15/19 18:36: POC Whole Blood Glucose 144H 08/15/19 23:25: POC Whole Blood Glucose [Pending] 08/16/19 05:38: POC Whole Blood Glucose [Pending] 08/16/19 12:41: POC Whole Blood Glucose 135H Height (Feet): 6 Height (Inches): 7 Weight (Pounds): 166 Objective CV RR Trach clean Lungs CTA Abd SNT. BS + E No CCE Erica Pichardo MD Aug 16, 2019 14:08
[2019-08-16 16:00] VITALS: BP 128/56
[2019-08-16] MEDS ORDERED: NS 275ml ONE (17:01)
--- NOTE | 2019-08-16 18:23 | General Progress Note ---
Assessment/Plan Assessment/Plan: IMPRESSION: 1. anemia. 2. GI bleed. 3. Leukocytosis. 4. Probable sepsis. + BCX 5. Acute on chronic renal failure. 6. Hyponatremia. 7. Severe protein-calorie malnutrition. 8. Significantly elevated C-reactive protein concerning for infectious etiology. 9. Tracheostomy, G-tube. 10. Ventilator dependence. PLAN care noted on vent monitor sodium rate control HD monitor renal function iv antibiotics and monitor wbc; heme eval to assess for underlying heme disorder multiple + cultures care noted and reviewed remains ill and not yet able to transfer impression, plan, and exam edited and reviewed in detail care discussed with RN Subjective ROS Limited/Unobtainable: Yes Allergies: Coded Allergies: No Known Allergies (Unverified , 06/10/19) Subjective remains ill on vent needs HD weekend events noted Objective Last 24 Hour Vital Signs Date Time Temp Pulse Resp B/P (MAP) Pulse Ox O2 Delivery O2 Flow Rate FiO2 08/16/19 16:00 25 08/16/19 16:00 97.2 61 17 128/56 (80) 98 08/16/19 16:00 Mechanical Ventilator 15.0 08/16/19 16:00 62 08/16/19 15:30 63 16 25 08/16/19 12:18 25 08/16/19 12:00 97.0 58 18 105/43 (63) 100 08/16/19 12:00 Mechanical Ventilator 15.0 08/16/19 11:30 58 08/16/19 11:01 59 16 25 08/16/19 08:59 64 134/53 08/16/19 08:58 134/53 08/16/19 08:00 64 08/16/19 08:00 Mechanical Ventilator 15.0 08/16/19 08:00 25 08/16/19 08:00 96.4 64 17 134/53 (80) 100 08/16/19 07:10 62 15 25 08/16/19 04:33 97.5 64 22 132/54 (80) 100 08/16/19 04:08 Mechanical Ventilator 08/16/19 04:00 25 08/16/19 03:53 64 08/16/19 03:02 70 16 25 08/16/19 00:07 Mechanical Ventilator 08/16/19 00:00 63 08/15/19 23:57 97.5 63 18 123/63 (83) 100 08/15/19 22:49 63 16 25 08/15/19 20:30 97.5 83 18 147/64 (91) 100 08/15/19 20:26 75 147/64 08/15/19 20:00 72 08/15/19 20:00 25 08/15/19 20:00 Mechanical Ventilator 08/15/19 18:45 69 18 25 Intake and Output 08/15/19 08/16/19 19:00 07:00 Intake Total 615.0 ml 665.0 ml Output Total 150 ml 2050 ml Balance 465.0 ml -1385.0 ml Free Water 60 ml IV Total 110.0 ml 110.0 ml Tube Feeding 405 ml 495 ml Other 100 ml Output Urine Total 150 ml 50 ml Hemodialysis UF 2000 ml # Bowel Movements 2 4 Laboratory Tests 08/15/19 18:36: POC Whole Blood Glucose 144H 08/15/19 23:25: POC Whole Blood Glucose [Pending] 08/16/19 05:38: POC Whole Blood Glucose [Pending] 08/16/19 12:41: POC Whole Blood Glucose 135H Height (Feet): 6 Height (Inches): 7 Weight (Pounds): 166 Objective GENERAL: Ill-appearing male, chronically debilitated. HEENT: Tracheostomy in midline. Questionable fullness in the submandibular region. LUNGS: Coarse breath sounds. CARDIAC: S1, S2. Regular rate and rhythm. ABDOMEN: Soft. G-tube. EXTREMITIES: With noted edema. NEUROLOGICAL: Poorly responsive, weak diffusely. Kain Ramirez MD Aug 16, 2019 18:23
--- NOTE | 2019-08-16 19:27 | NUR ---
HAND-OFF: Report given to RONEY Wang RN..
--- NOTE | 2019-08-16 19:27 | NUR ---
NURSE NOTES: Received report from TAMICA Ennis. Patient asleep, afebrile and no respiratory distress. V paced on 5 lead tester food products. On [facility] vent P8, ac 16, TV 450, FiO2 25%, peep 5. With Right wrist 22g IV line intact, patent and asymptomatic. On Nephro 45cc/hr x 20 hrs via GT intact and infusing well. With right femoral julito cath intact, clean and asymptomatic. Needs were attended. HOB elevated. Bed rails are up and wheels are locked. Call light within reach. Continue plan of care.
--- NOTE | 2019-08-16 19:37 | General Progress Note ---
Assessment/Plan Assessment/Plan: Assessment - Anemia - Black stools, but patient on po Iron - stool OB (+) - EGD --> gastritis, Colonoscopy --> not planned since done recently - Renal failure - Sepsis / leukocytosis - Anasarca - resp failure, trach - dysphagia, GT - encephalopathy, contracted - loose BM, C Diff (-) x 1 Recommendations - Tube feeds - no plans for colonoscopy - Iron panel noted - PPI - abx - supportive care Subjective Allergies: Coded Allergies: No Known Allergies (Unverified , 06/10/19) Subjective Above noted NAD tolerating feeds loose BM - prev C Diff (-) on 08/08 Objective Last 24 Hour Vital Signs Date Time Temp Pulse Resp B/P (MAP) Pulse Ox O2 Delivery O2 Flow Rate FiO2 08/16/19 18:41 65 15 25 08/16/19 16:00 25 08/16/19 16:00 97.2 61 17 128/56 (80) 98 08/16/19 16:00 Mechanical Ventilator 15.0 08/16/19 16:00 62 08/16/19 15:30 63 16 25 08/16/19 12:18 25 08/16/19 12:00 97.0 58 18 105/43 (63) 100 08/16/19 12:00 Mechanical Ventilator 15.0 08/16/19 11:30 58 08/16/19 11:01 59 16 25 08/16/19 08:59 64 134/53 08/16/19 08:58 134/53 08/16/19 08:00 64 08/16/19 08:00 Mechanical Ventilator 15.0 08/16/19 08:00 25 08/16/19 08:00 96.4 64 17 134/53 (80) 100 08/16/19 07:10 62 15 25 08/16/19 04:33 97.5 64 22 132/54 (80) 100 08/16/19 04:08 Mechanical Ventilator 08/16/19 04:00 25 08/16/19 03:53 64 08/16/19 03:02 70 16 25 08/16/19 00:07 Mechanical Ventilator 08/16/19 00:00 63 08/15/19 23:57 97.5 63 18 123/63 (83) 100 08/15/19 22:49 63 16 25 08/15/19 20:30 97.5 83 18 147/64 (91) 100 08/15/19 20:26 75 147/64 08/15/19 20:00 72 08/15/19 20:00 25 08/15/19 20:00 Mechanical Ventilator Intake and Output 08/15/19 08/16/19 19:00 07:00 Intake Total 615.0 ml 665.0 ml Output Total 150 ml 2050 ml Balance 465.0 ml -1385.0 ml Free Water 60 ml IV Total 110.0 ml 110.0 ml Tube Feeding 405 ml 495 ml Other 100 ml Output Urine Total 150 ml 50 ml Hemodialysis UF 2000 ml # Bowel Movements 2 4 Laboratory Tests 08/15/19 23:25: POC Whole Blood Glucose [Pending] 08/16/19 05:38: POC Whole Blood Glucose [Pending] 08/16/19 12:41: POC Whole Blood Glucose 135H Height (Feet): 6 Height (Inches): 7 Weight (Pounds): 166 Objective Debilitated AA man NCAT (+) trach coarse BS RR abd distended, anasarca, (+) GT ext (+) edema contracted Ronny Mustafa MD Aug 16, 2019 19:37
--- NOTE | 2019-08-16 19:54 | NUR ---
RESPIRATORY NOTE4S: Recieved pt on vent settings 15/450/25%/ +5. pt is portex 8. Pt b/s Rhonchi bilaterally. sx scant white secretions. Pt. sating 98-100%. Alarms are on and audible, bmv at bedside, and vent plugged in red outlet. will continue to monitor.
[2019-08-16 20:00] VITALS: BP 135/66
[2019-08-16] MEDS: Dyna-Hex 2% Top Sol 2oz TOPIC SCH (20:15)
[2019-08-16] MEDS: Atorvastatin 20mg tab GT SCH (20:16)
[2019-08-16] MEDS: Epoetin Alfa-EPBX (NON ESRD)4000 units/ml vial SUBQ SCH (20:17)
--- NOTE | 2019-08-16 23:13 | NUR ---
NURSE NOTES: Placed a call to [facility] regarding CT abdomen and pelvis. Explained the procedure, risks, benefits. Daughter consented via telephone call. Consent were verified by 2 RNs. Consent paper on the chart.
[2019-08-17] VITALS: BP 135/56
--- NOTE | 2019-08-17 02:00 | NUR ---
NURSE NOTES: patient given aprtial bed bath, gowns and linen changed. Pt tolerated the activity. Continue to monitor the patient
[2019-08-17 04:00] VITALS: BP 134/52
[2019-08-17] MEDS: NovoLOG Insulin Flexpen SUBQ SCH ×4 (05:01→23:13)
--- NOTE | 2019-08-17 05:01 | NUR ---
NURSE NOTES: Novolog not given. Held feeding post midnight for CT of abdomen. continue to monitor the patient
[2019-08-17 05:33] LABS: HEMATOCRIT 29.3 % (42.0-52.0); MEAN CORPUSCULAR VOLUME 87 FL (80-99); PLATELET COUNT 369 K/UL (150-450); RED BLOOD COUNT 3.36 M/UL (4.70-6.10); RED CELL DISTRIBUTION WIDTH 16.9 % (11.6-14.8)
[2019-08-17 05:54] LABS: ANION GAP 13 mmol/L (5-15); BLOOD UREA NITROGEN 119 mg/dL (7-18); CALCIUM 8.9 MG/DL (8.5-10.1); CARBON DIOXIDE 23 MMOL/L (21-32); CHLORIDE 102 MMOL/L (98-107); CREATININE 3.7 MG/DL (0.55-1.30); POTASSIUM 3.1 MMOL/L (3.5-5.1); SODIUM 138 MMOL/L (136-145)
[2019-08-17 05:56] LABS: WHITE BLOOD COUNT 25.4 K/UL (4.8-10.8)
[2019-08-17] MEDS ORDERED: Heparin Sod 1000 units/ml 10ml IV PRN (06:00)
[2019-08-17] MEDS ORDERED: Heparin 1000 units/ml 1ml Vial INJ PRN (06:00)
--- NOTE | 2019-08-17 07:04 | NUR ---
NURSE NOTES: left a voicemail to Dr Pichardo's office regarding patient's potassium level 3.1 . awaiting for response. Endorsed to AM nruse to follow up with Dr Dunne for any orders
--- NOTE | 2019-08-17 07:05 | NUR ---
HAND-OFF: Report given to TAMICA Ennis.
--- NOTE | 2019-08-17 07:15 | NUR ---
NURSE NOTES: Report received from RONEY Wang RN.Pt resting in bed obtunded,noted no resp distress with trach tube to vent,ordered vent settings tolerated,no signs of pain or discomfort,S-R on the monitor,GTF clamped,NPO for CT scan Abdomen with contrast,Avalos cath draining yellow urine,,skin warm and dry with PIV to Rt Wrist and HD access to RT Femoral both intact,SR up x2 HOB elevated,bed lock in lowest position,will continue with plans of care.
[2019-08-17 08:00] VITALS: BP 110/42
[2019-08-17] MEDS: Piperacillin/Tazobactam 3.375 GM in NS 110 ML IVPB SCH (08:19)
[2019-08-17] MEDS: Minoxidil 2.5mg tab GT SCH (08:19)
[2019-08-17] MEDS: Metoprolol Tartrate 100mg tab GT SCH ×2 (08:20→21:26)
[2019-08-17] MEDS: Multivitamins W/Minerals 15 ML UDC GT SCH (08:24)
[2019-08-17] MEDS: Ascorbic Acid 500mg tab GT SCH (08:24)
[2019-08-17] MEDS: Zinc Oxide Oint 2oz TOPIC SCH ×2 (08:25→18:39)
[2019-08-17] MEDS: Nephrovite tab (Rena-Vite) GT SCH (08:26)
[2019-08-17] MEDS: Vitamin D 1000 IU Tab GT SCH (08:26)
--- NOTE | 2019-08-17 08:44 | General Progress Note ---
Assessment/Plan Assessment/Plan: IMPRESSION: 1. anemia. 2. GI bleed. 3. Leukocytosis. 4. Probable sepsis. + BCX 5. Acute on chronic renal failure. 6. Hyponatremia. 7. Severe protein-calorie malnutrition. 8. Significantly elevated C-reactive protein concerning for infectious etiology. 9. Tracheostomy, G-tube. 10. Ventilator dependence. PLAN care noted on vent monitor sodium rate control HD monitor renal function iv antibiotics and monitor wbc; heme eval to assess for underlying heme disorder multiple + cultures care noted and reviewed remains ill and not yet able to transfer impression, plan, and exam edited and reviewed in detail care discussed with RN Subjective Allergies: Coded Allergies: No Known Allergies (Unverified , 06/10/19) Subjective remains ill on vent needs HD weekend events noted Objective Last 24 Hour Vital Signs Date Time Temp Pulse Resp B/P (MAP) Pulse Ox O2 Delivery O2 Flow Rate FiO2 08/17/19 08:20 60 110/42 08/17/19 08:19 134/52 08/17/19 08:00 97.5 60 16 110/42 (64) 100 08/17/19 08:00 25 08/17/19 04:00 Mechanical Ventilator 15.0 08/17/19 04:00 25 08/17/19 04:00 97.3 61 17 134/52 (79) 98 08/17/19 03:27 60 08/17/19 03:19 60 15 25 08/17/19 00:00 Mechanical Ventilator 15.0 08/17/19 00:00 97.2 62 17 135/56 (82) 98 08/16/19 23:35 65 08/16/19 22:54 67 15 25 08/16/19 20:16 65 135/66 08/16/19 20:00 97.0 65 17 135/66 (89) 98 08/16/19 20:00 25 08/16/19 20:00 Mechanical Ventilator 15.0 08/16/19 20:00 65 08/16/19 18:41 65 15 25 08/16/19 16:00 25 08/16/19 16:00 97.2 61 17 128/56 (80) 98 08/16/19 16:00 Mechanical Ventilator 15.0 08/16/19 16:00 62 08/16/19 15:30 63 16 25 08/16/19 12:18 25 08/16/19 12:00 97.0 58 18 105/43 (63) 100 08/16/19 12:00 Mechanical Ventilator 15.0 08/16/19 11:30 58 08/16/19 11:01 59 16 25 08/16/19 08:59 64 134/53 08/16/19 08:58 134/53 Intake and Output 08/16/19 08/17/19 19:00 07:00 Intake Total 775 ml 335.0 ml Output Total 100 ml 350 ml Balance 675 ml -15.0 ml Free Water 100 ml IV Total 110.0 ml Tube Feeding 315 ml 225 ml Other 360 ml Output Urine Total 100 ml 350 ml # Bowel Movements 2 Laboratory Tests 08/16/19 12:41: POC Whole Blood Glucose 135H 08/17/19 03:55: White Blood Count 25.4*H, Red Blood Count 3.36L, Hemoglobin 9.0L, Hematocrit 29.3L, Mean Corpuscular Volume 87, Mean Corpuscular Hemoglobin 26.8L, Mean Corpuscular Hemoglobin Concent 30.7L, Red Cell Distribution Width 16.9H, Platelet Count 369, Mean Platelet Volume 5.2L, Neutrophils (%) (Auto) , Lymphocytes (%) (Auto) , Monocytes (%) (Auto) , Eosinophils (%) (Auto) , Basophils (%) (Auto) , Neutrophils % (Manual) [Pending], Lymphocytes % (Manual) [Pending], Platelet Estimate [Pending], Platelet Morphology [Pending], Sodium Level 138, Potassium Level 3.1L, Chloride Level 102, Carbon Dioxide Level 23, Anion Gap 13, Blood Urea Nitrogen 119H, Creatinine 3.7H, Estimat Glomerular Filtration Rate 16.0, Glucose Level 152H, Calcium Level 8.9 Height (Feet): 6 Height (Inches): 7 Weight (Pounds): 166 Objective GENERAL: Ill-appearing male, chronically debilitated. HEENT: Tracheostomy in midline. Questionable fullness in the submandibular region. LUNGS: Coarse breath sounds. CARDIAC: S1, S2. Regular rate and rhythm. ABDOMEN: Soft. G-tube. EXTREMITIES: With noted edema. NEUROLOGICAL: Poorly responsive, weak diffusely. Kain Ramirez MD Aug 17, 2019 08:44
--- NOTE | 2019-08-17 08:50 | Hematology/Onc Progress Note ---
Assessment/Plan Assessment/Plan Assessment/recs # Leukocytosis - with multiple infections, VRE UTI --> wbc trend 33-->28-->25 --> on abx, linezolid and zosyn--> zosyn --> + blood cultures with coag neg staph likely contaminated --> as per id recs --> has ordered a flow cytometry (with pathology) to r/o leukemia # Anemia due to chronic disease/kidney disease as well, gi bleed + occult + noted --> was on iron in the past, now on hold --> has been started on epogen --> as per renal care --> egd done and shows gastritis --> on ppi --> egd showed gastritis, colo recently done --> hgb 9 # Respiratory failure --> per pulm, s/p trach --> COVID 19 test negative x 2 # Dysphagia s/p gtube with nepro --> per gi # ESRD with r fem julito --> hd as per renal Appreciate consultation and matt Rn Subjective HEENT: Denies: no symptoms, eye pain, blurred vision, tearing, double vision, ear pain, ear discharge, nose pain, nose congestion, throat pain, throat swelling, mouth pain, mouth swelling, other Cardiovascular: Denies: no symptoms, chest pain, edema, irregular heart rate, lightheadedness, palpitations, syncope, other Gastrointestinal/Abdominal: Denies: no symptoms, abdomen distended, abdominal pain, black stools, tarry stools, blood in stool, constipated, diarrhea, difficulty swallowing, nausea, poor appetite, poor fluid intake, rectal bleeding , vomiting, other Genitourinary: Denies: no symptoms, burning, discharge, frequency, flank pain, hematuria, incontinence, pain, urgency, other Neurologic/Psychiatric: Denies: no symptoms, anxiety, depressed, emotional problems, headache, numbness, paresthesia, pre-existing deficit, seizure, tingling, tremors, weakness, other Endocrine: Denies: no symptoms, excessive sweating, flushing, intolerance to cold, intolerance to heat, increased hunger, increased thirst, increased urine, unexplained weight gain, unexplained weight loss, other Allergies: Coded Allergies: No Known Allergies (Unverified , 06/10/19) Subjective /8 meds noted, no bleeding, hgb 8.8, wbc 28, path flow pending 08/16 flow pending dw pathologist, results pending, wbc 25, hgb 9 Objective Objective Current Medications Medications (Trade) Dose Ordered Sig/Leonel Route PRN Reason Start Time Stop Time Status Last Admin Dose Admin Acetaminophen (Tylenol) 650 mg Q4H PRN GT Mild Pain / fever 08/09/19 05:30 09/08/19 05:29 Al Hydroxide/Mg Hydroxide (Mylanta) 30 ml FOUR TIMES A DAY PRN GT constipation 08/09/19 06:00 09/08/19 05:29 Ascorbic Acid (Vitamin C) 500 mg DAILY GT 08/09/19 09:00 09/08/19 08:59 08/16/19 08:57 Atorvastatin Calcium (Lipitor) 40 mg BEDTIME GT 08/09/19 21:00 11/07/19 20:59 08/16/19 20:16 Barium Sulfate (Readi-Cat 2) 450 ml NOW PRN ORAL Radiology Procedure 08/16/19 10:45 08/18/19 10:37 Chlorhexidine Gluconate (Felipa-Hex 2%) 1 applic DAILY@2000 TOPIC 08/15/19 20:00 11/13/19 19:59 08/16/19 20:15 Clonidine HCl (Catapres Tab) 0.1 mg Q4H PRN GT SBP>150 08/12/19 10:45 11/10/19 06:44 Dextrose (Dextrose 50%) 25 ml Q30M PRN IV Hypoglycemia 08/09/19 07:30 11/07/19 07:29 Dextrose (Dextrose 50%) 50 ml Q30M PRN IV Hypoglycemia 08/09/19 07:30 11/07/19 07:29 Epoetin Andreas (Epoetin Andreas-EPBX(NON ESRD)) 8,000 unit MON-WED-WED SUBQ 08/09/19 21:00 11/07/19 20:59 08/16/19 20:17 Heparin Sodium (Porcine) (Heparin Sod 1000 units/ml 10ml) 2,000 unit ONCE PRN IV hd 08/17/19 06:00 08/17/19 23:59 Heparin Sodium (Porcine) (Heparin) 1,000 unit POSTHD PRN INJ POST HD 08/17/19 06:00 08/17/19 23:59 Insulin Aspart (NovoLOG) Q6HR SUBQ 08/10/19 00:00 11/07/19 11:29 08/16/19 23:44 Lansoprazole (Prevacid) 30 mg DAILY GT 08/09/19 09:00 09/08/19 08:59 08/16/19 08:57 Loperamide HCl (Imodium) 2 mg Q4H PRN GT Diarrhea 08/09/19 08:00 09/08/19 07:59 Metoprolol Tartrate (Lopressor) 200 mg Q12HR GT 08/09/19 09:00 11/07/19 08:59 08/16/19 20:16 Minoxidil (Loniten) 5 mg DAILY GT 08/09/19 09:00 11/07/19 08:59 08/16/19 08:58 Multivitamins (Multivitamins W/ Minerals 15ml Liquid) 15 ml DAILY GT 08/09/19 09:00 09/08/19 08:59 08/16/19 08:57 Piperacillin Sod/ Tazobactam Sod 3.375 gm/Sodium Chloride 110 ml @ 27.5 mls/hr Q12H IVPB 08/09/19 06:00 08/17/19 23:59 08/17/19 08:19 Sodium Chloride 1,000 ml @ 500 mls/hr Q2H PRN IVLG sbp<90 during hd 08/17/19 06:00 08/17/19 23:59 Vitamin B Complex/ Vit C/Folic Acid (Nephrovite) 1 tab DAILY GT 08/09/19 09:00 09/08/19 08:59 08/16/19 08:57 Vitamin D (Vitamin D) 1,000 intlu DAILY GT 08/09/19 09:00 09/08/19 08:59 08/16/19 08:57 Zinc Oxide (Zinc Oxide) 1 applic BID TOPIC 08/10/19 18:00 11/08/19 17:59 08/17/19 08:25 Last 24 Hour Vital Signs Date Time Temp Pulse Resp B/P (MAP) Pulse Ox O2 Delivery O2 Flow Rate FiO2 08/17/19 08:20 60 110/42 08/17/19 08:19 134/52 08/17/19 08:00 97.5 60 16 110/42 (64) 100 08/17/19 08:00 25 08/17/19 04:00 Mechanical Ventilator 15.0 08/17/19 04:00 25 08/17/19 04:00 97.3 61 17 134/52 (79) 98 08/17/19 03:27 60 08/17/19 03:19 60 15 25 08/17/19 00:00 Mechanical Ventilator 15.0 08/17/19 00:00 97.2 62 17 135/56 (82) 98 08/16/19 23:35 65 08/16/19 22:54 67 15 25 08/16/19 20:16 65 135/66 08/16/19 20:00 97.0 65 17 135/66 (89) 98 08/16/19 20:00 25 08/16/19 20:00 Mechanical Ventilator 15.0 08/16/19 20:00 65 08/16/19 18:41 65 15 25 08/16/19 16:00 25 08/16/19 16:00 97.2 61 17 128/56 (80) 98 08/16/19 16:00 Mechanical Ventilator 15.0 08/16/19 16:00 62 08/16/19 15:30 63 16 25 08/16/19 12:18 25 08/16/19 12:00 97.0 58 18 105/43 (63) 100 08/16/19 12:00 Mechanical Ventilator 15.0 08/16/19 11:30 58 08/16/19 11:01 59 16 25 08/16/19 08:59 64 134/53 08/16/19 08:58 134/53 08/16/19 08:00 64 08/16/19 08:00 Mechanical Ventilator 15.0 08/16/19 08:00 25 08/16/19 08:00 96.4 64 17 134/53 (80) 100 08/16/19 07:10 62 15 25 08/16/19 04:33 97.5 64 22 132/54 (80) 100 08/16/19 04:08 Mechanical Ventilator 08/16/19 04:00 25 08/16/19 03:53 64 08/16/19 03:02 70 16 25 08/16/19 00:07 Mechanical Ventilator 08/16/19 00:00 63 08/15/19 23:57 97.5 63 18 123/63 (83) 100 08/15/19 22:49 63 16 25 08/15/19 20:30 97.5 83 18 147/64 (91) 100 08/15/19 20:26 75 147/64 08/15/19 20:00 72 08/15/19 20:00 25 08/15/19 20:00 Mechanical Ventilator 08/15/19 18:45 69 18 25 08/15/19 16:00 25 08/15/19 16:00 Mechanical Ventilator 08/15/19 16:00 64 08/15/19 16:00 97.6 61 17 131/59 (83) 100 08/15/19 14:41 62 15 25 08/15/19 12:00 Mechanical Ventilator 08/15/19 12:00 25 08/15/19 12:00 60 08/15/19 11:59 98.0 58 17 121/58 (79) 100 08/15/19 11:04 58 15 25 Intake and Output 08/16/19 08/17/19 19:00 07:00 Intake Total 775 ml 335.0 ml Output Total 100 ml 350 ml Balance 675 ml -15.0 ml Free Water 100 ml IV Total 110.0 ml Tube Feeding 315 ml 225 ml Other 360 ml Output Urine Total 100 ml 350 ml # Bowel Movements 2 Labs Test 08/14/19 12:25 08/14/19 18:02 08/15/19 03:25 08/15/19 11:56 POC Whole Blood Glucose 130 MG/DL (74-106) 175 MG/DL (74-106) 164 MG/DL (74-106) Sodium Level 132 MMOL/L (136-145) Potassium Level 4.1 MMOL/L (3.5-5.1) Chloride Level 100 MMOL/L (98-107) Carbon Dioxide Level 19 MMOL/L (21-32) Anion Gap 13 mmol/L (5-15) Blood Urea Nitrogen 151 mg/dL (7-18) Creatinine 4.2 MG/DL (0.55-1.30) Estimat Glomerular Filtration Rate 13.8 mL/min (>60) Glucose Level 197 MG/DL (74-106) Calcium Level 8.5 MG/DL (8.5-10.1) Test 08/15/19 18:36 08/15/19 23:25 08/16/19 05:38 08/16/19 12:41 POC Whole Blood Glucose 144 MG/DL (74-106) 135 MG/DL (74-106) Test 08/17/19 03:55 White Blood Count 25.4 K/UL (4.8-10.8) Red Blood Count 3.36 M/UL (4.70-6.10) Hemoglobin 9.0 G/DL (14.2-18.0) Hematocrit 29.3 % (42.0-52.0) Mean Corpuscular Volume 87 FL (80-99) Mean Corpuscular Hemoglobin 26.8 PG (27.0-31.0) Mean Corpuscular Hemoglobin Concent 30.7 G/DL (32.0-36.0) Red Cell Distribution Width 16.9 % (11.6-14.8) Platelet Count 369 K/UL (150-450) Mean Platelet Volume 5.2 FL (6.5-10.1) Neutrophils (%) (Auto) % (45.0-75.0) Lymphocytes (%) (Auto) % (20.0-45.0) Monocytes (%) (Auto) % (1.0-10.0) Eosinophils (%) (Auto) % (0.0-3.0) Basophils (%) (Auto) % (0.0-2.0) Sodium Level 138 MMOL/L (136-145) Potassium Level 3.1 MMOL/L (3.5-5.1) Chloride Level 102 MMOL/L (98-107) Carbon Dioxide Level 23 MMOL/L (21-32) Anion Gap 13 mmol/L (5-15) Blood Urea Nitrogen 119 mg/dL (7-18) Creatinine 3.7 MG/DL (0.55-1.30) Estimat Glomerular Filtration Rate 16.0 mL/min (>60) Glucose Level 152 MG/DL (74-106) Calcium Level 8.9 MG/DL (8.5-10.1) Height (Feet): 6 Height (Inches): 7 Weight (Pounds): 166 Objective Physical Exam General Appearance: nad, Chronically Ill Head: normocephalic Eyes: right eye PERRL - Will not open left eye ENT: moist mucus membranes Neck: other - submandibular mass R, fairly rigid with resistance to rotation to L, tracheotomy Respiratory: decreased breath sounds, crackles, other - pacemaker Cardiovascular: regular rate, rhythm, edema - anasarca Gastrointestinal: non tender, distended, other - G tube Genitourinary: other Musculoskeletal: other - Contractures all extremities Neurologic: sensory intact, motor weakness, responsive Psychiatric: other Skin: Decubitus/Ulcer - Stage III right elbow, stage III left elbow, stage II sacrum, stage III scrotum, warm/dry Fitz Campos MD Aug 17, 2019 08:50
--- NOTE | 2019-08-17 09:57 | Infectious Diseases Prog Note ---
Assessment/Plan Assessment/Plan A: 1. Pneumonia with Pseudomonas, Providencia, Proteus, strep group G COVID19 X2 : negative 2. Renal failure. 3. Leukocytosis 4. Respiratory failure, Ventilator dependent 5. Anemia 6. Anasarca 7. 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 Continue Zosyn X 1 day 2. Will f/u CT chest , abdomen & pelvis 3. Will f/u stool c.diff Subjective ROS Limited/Unobtainable: Yes Constitutional: Denies: fever Gastrointestinal/Abdominal: Reports: diarrhea Allergies: Coded Allergies: No Known Allergies (Unverified , 06/10/19) Objective Last 24 Hour Vital Signs Date Time Temp Pulse Resp B/P (MAP) Pulse Ox O2 Delivery O2 Flow Rate FiO2 08/17/19 08:20 60 110/42 08/17/19 08:19 134/52 08/17/19 08:00 97.5 60 16 110/42 (64) 100 08/17/19 08:00 25 08/17/19 06:50 60 15 25 08/17/19 04:00 Mechanical Ventilator 15.0 08/17/19 04:00 25 08/17/19 04:00 97.3 61 17 134/52 (79) 98 08/17/19 03:27 60 08/17/19 03:19 60 15 25 08/17/19 00:00 Mechanical Ventilator 15.0 08/17/19 00:00 97.2 62 17 135/56 (82) 98 08/16/19 23:35 65 08/16/19 22:54 67 15 25 08/16/19 20:16 65 135/66 08/16/19 20:00 97.0 65 17 135/66 (89) 98 08/16/19 20:00 25 08/16/19 20:00 Mechanical Ventilator 15.0 08/16/19 20:00 65 08/16/19 18:41 65 15 25 08/16/19 16:00 25 08/16/19 16:00 97.2 61 17 128/56 (80) 98 08/16/19 16:00 Mechanical Ventilator 15.0 08/16/19 16:00 62 08/16/19 15:30 63 16 25 08/16/19 12:18 25 08/16/19 12:00 97.0 58 18 105/43 (63) 100 08/16/19 12:00 Mechanical Ventilator 15.0 08/16/19 11:30 58 08/16/19 11:01 59 16 25 Height (Feet): 6 Height (Inches): 7 Weight (Pounds): 166 HEENT: mucous membranes moist, status post trach Respiratory/Chest: lungs clear, other - on ventilator Cardiovascular: normal rate Abdomen: soft, non tender, other - GT feeding Extremities: other - anasarca Neurologic/Psychiatric: aphasia Microbiology Date/Time Source Procedure Growth Status 08/16/19 16:10 Stool Clostridium difficile Toxin Assay - Final Complete Laboratory Tests Test 08/16/19 12:41 08/16/19 18:24 08/16/19 23:41 08/17/19 03:55 POC Whole Blood Glucose 135 MG/DL (74-106) H Pending 198 MG/DL (74-106) H White Blood Count 25.4 K/UL (4.8-10.8) *H Red Blood Count 3.36 M/UL (4.70-6.10) L Hemoglobin 9.0 G/DL (14.2-18.0) L Hematocrit 29.3 % (42.0-52.0) L Mean Corpuscular Volume 87 FL (80-99) Mean Corpuscular Hemoglobin 26.8 PG (27.0-31.0) L Mean Corpuscular Hemoglobin Concent 30.7 G/DL (32.0-36.0) L Red Cell Distribution Width 16.9 % (11.6-14.8) H Platelet Count 369 K/UL (150-450) Mean Platelet Volume 5.2 FL (6.5-10.1) L Neutrophils (%) (Auto) % (45.0-75.0) Lymphocytes (%) (Auto) % (20.0-45.0) Monocytes (%) (Auto) % (1.0-10.0) Eosinophils (%) (Auto) % (0.0-3.0) Basophils (%) (Auto) % (0.0-2.0) Differential Total Cells Counted 100 Neutrophils % (Manual) 76 % (45-75) H Lymphocytes % (Manual) 15 % (20-45) L Monocytes % (Manual) 6 % (1-10) Eosinophils % (Manual) 3 % (0-3) Basophils % (Manual) 0 % (0-2) Band Neutrophils 0 % (0-8) Platelet Estimate Adequate Platelet Morphology Normal Hypochromasia 2+ Anisocytosis 1+ Sodium Level 138 MMOL/L (136-145) Potassium Level 3.1 MMOL/L (3.5-5.1) L Chloride Level 102 MMOL/L (98-107) Carbon Dioxide Level 23 MMOL/L (21-32) Anion Gap 13 mmol/L (5-15) Blood Urea Nitrogen 119 mg/dL (7-18) H Creatinine 3.7 MG/DL (0.55-1.30) H Estimat Glomerular Filtration Rate 16.0 mL/min (>60) Glucose Level 152 MG/DL (74-106) H Calcium Level 8.9 MG/DL (8.5-10.1) Test 08/17/19 04:52 POC Whole Blood Glucose 144 MG/DL (74-106) H Current Medications Medications (Trade) Dose Ordered Sig/Leonel Route PRN Reason Start Time Stop Time Status Last Admin Dose Admin Acetaminophen (Tylenol) 650 mg Q4H PRN GT Mild Pain / fever 08/09/19 05:30 09/08/19 05:29 Al Hydroxide/Mg Hydroxide (Mylanta) 30 ml FOUR TIMES A DAY PRN GT constipation 08/09/19 06:00 09/08/19 05:29 Ascorbic Acid (Vitamin C) 500 mg DAILY GT 08/09/19 09:00 09/08/19 08:59 08/16/19 08:57 Atorvastatin Calcium (Lipitor) 40 mg BEDTIME GT 08/09/19 21:00 11/07/19 20:59 08/16/19 20:16 Barium Sulfate (Readi-Cat 2) 450 ml NOW PRN ORAL Radiology Procedure 08/16/19 10:45 08/18/19 10:37 Chlorhexidine Gluconate (Felipa-Hex 2%) 1 applic DAILY@1999 TOPIC 08/15/19 20:00 11/13/19 19:59 08/16/19 20:15 Clonidine HCl (Catapres Tab) 0.1 mg Q4H PRN GT SBP>150 08/12/19 10:45 11/10/19 06:44 Dextrose (Dextrose 50%) 25 ml Q30M PRN IV Hypoglycemia 08/09/19 07:30 11/07/19 07:29 Dextrose (Dextrose 50%) 50 ml Q30M PRN IV Hypoglycemia 08/09/19 07:30 11/07/19 07:29 Epoetin Andreas (Epoetin Andreas-EPBX(NON ESRD)) 8,000 unit WED-WED-WED SUBQ 08/09/19 21:00 11/07/19 20:59 08/16/19 20:17 Heparin Sodium (Porcine) (Heparin Sod 1000 units/ml 10ml) 2,000 unit ONCE PRN IV hd 08/17/19 06:00 08/17/19 23:59 Heparin Sodium (Porcine) (Heparin) 1,000 unit POSTHD PRN INJ POST HD 08/17/19 06:00 08/17/19 23:59 Insulin Aspart (NovoLOG) Q6HR SUBQ 08/10/19 00:00 11/07/19 11:29 08/16/19 23:44 Lansoprazole (Prevacid) 30 mg DAILY GT 08/09/19 09:00 09/08/19 08:59 08/16/19 08:57 Loperamide HCl (Imodium) 2 mg Q4H PRN GT Diarrhea 08/09/19 08:00 09/08/19 07:59 Metoprolol Tartrate (Lopressor) 200 mg Q12HR GT 08/09/19 09:00 11/07/19 08:59 08/16/19 20:16 Minoxidil (Loniten) 5 mg DAILY GT 08/09/19 09:00 11/07/19 08:59 08/16/19 08:58 Multivitamins (Multivitamins W/ Minerals 15ml Liquid) 15 ml DAILY GT 08/09/19 09:00 09/08/19 08:59 08/16/19 08:57 Piperacillin Sod/ Tazobactam Sod 3.375 gm/Sodium Chloride 110 ml @ 27.5 mls/hr Q12H IVPB 08/09/19 06:00 08/17/19 23:59 08/17/19 08:19 Sodium Chloride 1,000 ml @ 500 mls/hr Q2H PRN IVLG sbp<90 during hd 08/17/19 06:00 08/17/19 23:59 Vitamin B Complex/ Vit C/Folic Acid (Nephrovite) 1 tab DAILY GT 08/09/19 09:00 09/08/19 08:59 08/16/19 08:57 Vitamin D (Vitamin D) 1,000 intlu DAILY GT 08/09/19 09:00 09/08/19 08:59 08/16/19 08:57 Zinc Oxide (Zinc Oxide) 1 applic BID TOPIC 08/10/19 18:00 11/08/19 17:59 08/17/19 08:25 Real De Leon MD Aug 17, 2019 09:57
--- NOTE | 2019-08-17 10:30 | NUR ---
NURSE NOTES: Oral care done,oral/tracheal secretions suctioned PRN.Oral contrast given per instruction by party chief.
--- NOTE | 2019-08-17 11:02 | Nephrology Progress Note ---
Assessment/Plan Plan Sepsis - IV Abx Skin wounds - wound care Pre ESRD - HD now TTS. Subjective Subjective Obtunded Objective Objective Last 24 Hour Vital Signs Date Time Temp Pulse Resp B/P (MAP) Pulse Ox O2 Delivery O2 Flow Rate FiO2 08/17/19 08:20 60 110/42 08/17/19 08:19 134/52 08/17/19 08:00 61 08/17/19 08:00 97.5 60 16 110/42 (64) 100 08/17/19 08:00 25 08/17/19 08:00 Mechanical Ventilator 15.0 08/17/19 06:50 60 15 25 08/17/19 04:00 Mechanical Ventilator 15.0 08/17/19 04:00 25 08/17/19 04:00 97.3 61 17 134/52 (79) 98 08/17/19 03:27 60 08/17/19 03:19 60 15 25 08/17/19 00:00 Mechanical Ventilator 15.0 08/17/19 00:00 97.2 62 17 135/56 (82) 98 08/16/19 23:35 65 08/16/19 22:54 67 15 25 08/16/19 20:16 65 135/66 08/16/19 20:00 97.0 65 17 135/66 (89) 98 08/16/19 20:00 25 08/16/19 20:00 Mechanical Ventilator 15.0 08/16/19 20:00 65 08/16/19 18:41 65 15 25 08/16/19 16:00 25 08/16/19 16:00 97.2 61 17 128/56 (80) 98 08/16/19 16:00 Mechanical Ventilator 15.0 08/16/19 16:00 62 08/16/19 15:30 63 16 25 08/16/19 12:18 25 08/16/19 12:00 97.0 58 18 105/43 (63) 100 08/16/19 12:00 Mechanical Ventilator 15.0 08/16/19 11:30 58 Intake and Output 08/16/19 08/17/19 19:00 07:00 Intake Total 775 ml 335.0 ml Output Total 100 ml 350 ml Balance 675 ml -15.0 ml Free Water 100 ml IV Total 110.0 ml Tube Feeding 315 ml 225 ml Other 360 ml Output Urine Total 100 ml 350 ml # Bowel Movements 2 Laboratory Tests 08/16/19 12:41: POC Whole Blood Glucose 135H 08/16/19 18:24: POC Whole Blood Glucose [Pending] 08/16/19 23:41: POC Whole Blood Glucose 198H 08/17/19 03:55: White Blood Count 25.4*H, Red Blood Count 3.36L, Hemoglobin 9.0L, Hematocrit 29.3L, Mean Corpuscular Volume 87, Mean Corpuscular Hemoglobin 26.8L, Mean Corpuscular Hemoglobin Concent 30.7L, Red Cell Distribution Width 16.9H, Platelet Count 369, Mean Platelet Volume 5.2L, Neutrophils (%) (Auto) , Lymphocytes (%) (Auto) , Monocytes (%) (Auto) , Eosinophils (%) (Auto) , Basophils (%) (Auto) , Differential Total Cells Counted 100, Neutrophils % ( Manual) 76H, Lymphocytes % (Manual) 15L, Monocytes % (Manual) 6, Eosinophils % ( Manual) 3, Basophils % (Manual) 0, Band Neutrophils 0, Platelet Estimate Adequate, Platelet Morphology Normal, Hypochromasia 2+, Anisocytosis 1+, Sodium Level 138, Potassium Level 3.1L, Chloride Level 102, Carbon Dioxide Level 23, Anion Gap 13, Blood Urea Nitrogen 119H, Creatinine 3.7H, Estimat Glomerular Filtration Rate 16.0, Glucose Level 152H, Calcium Level 8.9 08/17/19 04:52: POC Whole Blood Glucose 144H Height (Feet): 6 Height (Inches): 7 Weight (Pounds): 166 Objective CV RR Trach clean Lungs CTA Abd SNT. BS + E No CCE Erica Pichardo MD Aug 17, 2019 11:01
[2019-08-17 12:00] VITALS: BP 118/46
--- NOTE | 2019-08-17 12:15 | NUR ---
NURSE NOTES: Pt brought down to CT Scan per bed aawake,noted no resp distress R.T at bedside ambu bagging pt,CT self of abdomen done,procedure tolerated.
--- NOTE | 2019-08-17 12:35 | NUR ---
NURSE NOTES: Pt back to unit per bed ,no resp distress presented,accompanied by Omkar,dante and RN.
--- NOTE | 2019-08-17 12:37 | NUR ---
CASE MANAGEMENT:REVIEW 08/17/19 SI: PNA. ANEMIA. PRE-ESRD TRACH/VENT DEPENDENT. TEMP HD CATH 97.5 60 16 110/42 100% ON VENT SUPPORT W/25% FIO2 WBC+25.4 H/H-9.0/29.3 K-3.1 BUN+119 CR+3.7 IS: IV ZOSYN Q8HRS LOPRESSOR GT Q12 MINOXIDIL GT QD VIT C GT QD VIT D GT QD MVI GT QD : STEP DOWN UNIT DCP; FROM [place] CONV PLAN: NEW TO DIALYSIS...STARTED ON 08/16/19
--- NOTE | 2019-08-17 14:08 | Surgery Progress Note ---
Surgery Progress Note Subjective Procedure Performed Right femoral temporary hemodialysis catheter insertion Additional Comments leukocytosis anemia exam stable ill appearing on support Objective Last 24 Hour Vital Signs Date Time Temp Pulse Resp B/P (MAP) Pulse Ox O2 Delivery O2 Flow Rate FiO2 08/17/19 12:00 Mechanical Ventilator 15.0 08/17/19 12:00 25 08/17/19 12:00 60 08/17/19 12:00 97.5 60 16 118/46 (70) 100 08/17/19 11:05 61 16 25 08/17/19 08:20 60 110/42 08/17/19 08:19 134/52 08/17/19 08:00 61 08/17/19 08:00 97.5 60 16 110/42 (64) 100 08/17/19 08:00 25 08/17/19 08:00 Mechanical Ventilator 15.0 08/17/19 06:50 60 15 25 08/17/19 04:00 Mechanical Ventilator 15.0 08/17/19 04:00 25 08/17/19 04:00 97.3 61 17 134/52 (79) 98 08/17/19 03:27 60 08/17/19 03:19 60 15 25 08/17/19 00:00 Mechanical Ventilator 15.0 08/17/19 00:00 97.2 62 17 135/56 (82) 98 08/16/19 23:35 65 08/16/19 22:54 67 15 25 08/16/19 20:16 65 135/66 08/16/19 20:00 97.0 65 17 135/66 (89) 98 08/16/19 20:00 25 08/16/19 20:00 Mechanical Ventilator 15.0 08/16/19 20:00 65 08/16/19 18:41 65 15 25 08/16/19 16:00 25 08/16/19 16:00 97.2 61 17 128/56 (80) 98 08/16/19 16:00 Mechanical Ventilator 15.0 08/16/19 16:00 62 08/16/19 15:30 63 16 25 I&O Intake and Output 08/16/19 08/17/19 19:00 07:00 Intake Total 775 ml 335.0 ml Output Total 100 ml 350 ml Balance 675 ml -15.0 ml Free Water 100 ml IV Total 110.0 ml Tube Feeding 315 ml 225 ml Other 360 ml Output Urine Total 100 ml 350 ml # Bowel Movements 2 Dressing: other Wound: other Drains: other Cardiovascular: RSR Respiratory: decreased breath sounds Abdomen: soft, non-tender, present bowel sounds Extremities: no cyanosis Laboratory Tests Test 08/16/19 18:24 08/16/19 23:41 08/17/19 03:55 08/17/19 04:52 POC Whole Blood Glucose Pending 198 MG/DL (74-106) H 144 MG/DL (74-106) H White Blood Count 25.4 K/UL (4.8-10.8) *H Red Blood Count 3.36 M/UL (4.70-6.10) L Hemoglobin 9.0 G/DL (14.2-18.0) L Hematocrit 29.3 % (42.0-52.0) L Mean Corpuscular Volume 87 FL (80-99) Mean Corpuscular Hemoglobin 26.8 PG (27.0-31.0) L Mean Corpuscular Hemoglobin Concent 30.7 G/DL (32.0-36.0) L Red Cell Distribution Width 16.9 % (11.6-14.8) H Platelet Count 369 K/UL (150-450) Mean Platelet Volume 5.2 FL (6.5-10.1) L Neutrophils (%) (Auto) % (45.0-75.0) Lymphocytes (%) (Auto) % (20.0-45.0) Monocytes (%) (Auto) % (1.0-10.0) Eosinophils (%) (Auto) % (0.0-3.0) Basophils (%) (Auto) % (0.0-2.0) Differential Total Cells Counted 100 Neutrophils % (Manual) 76 % (45-75) H Lymphocytes % (Manual) 15 % (20-45) L Monocytes % (Manual) 6 % (1-10) Eosinophils % (Manual) 3 % (0-3) Basophils % (Manual) 0 % (0-2) Band Neutrophils 0 % (0-8) Platelet Estimate Adequate Platelet Morphology Normal Hypochromasia 2+ Anisocytosis 1+ Sodium Level 138 MMOL/L (136-145) Potassium Level 3.1 MMOL/L (3.5-5.1) L Chloride Level 102 MMOL/L (98-107) Carbon Dioxide Level 23 MMOL/L (21-32) Anion Gap 13 mmol/L (5-15) Blood Urea Nitrogen 119 mg/dL (7-18) H Creatinine 3.7 MG/DL (0.55-1.30) H Estimat Glomerular Filtration Rate 16.0 mL/min (>60) Glucose Level 152 MG/DL (74-106) H Calcium Level 8.9 MG/DL (8.5-10.1) Hepatitis B Surface Antigen Pending Hepatitis B Surface Antibody, Quant Pending Hepatitis C Antibody Pending Test 08/17/19 11:20 POC Whole Blood Glucose 130 MG/DL (74-106) H Plan Problems: (1) Anemia (2) Hyponatremia (3) Leukocytosis Assessment & Plan: Tracheostomy, left chest pacemaker are again demonstrated. There is bilateral interstitial and airspace disease and bilateral pleural fluid again demonstrated. This appears more severe than on the prior study. Bilateral interstitial and airspace infiltrates versus edema. Bilateral pleural effusions Leukocytosis, anemia, tachycardia, abnormal labs. Wound evaluated and likely etiology of patient's sepsis. Leukocytosis etiology work-up antibiotics per infectious disease Appreciate nephrology input transfuse with dialysis We will follow with recommendations thank you allowing participation's care plan HD access temp HD discussed with medical teams line okay HD as per renal persistent leukocytosis flow cyto noted (4) Ventilator dependent (5) Right lower lobe pneumonia (6) Hypokalemia (7) Hyperkalemia (8) Anasarca (9) Decubitus skin ulcer Assessment & Plan: pt presented on admission with generalized edemae.Skin assessed under tracheostomy and no areas of concerns noted. GT Insertion is marginally erythematous with small amt slough at stoma. Unstageable Pressure Injury R elbow. Base of wound is 100% yellow slough, Borders are erythematous. Wound oozing small amt haemopurulent exudate.Darker skin tone without elevation in skin temp or erythema periwound. Pt's penis and scrotum are grossly edematous and enlarged and weeping serous exudate from numerous sites both from penis and scrotum. Two small open wounds noted at base of at base of shaft of penis ,and contreras aspect of scrotum. Both wounds oozing large amt sanguineous and serosanguineous exudate. Multiple open wounds with Biofilm at base of each wounds noted to contreras/lateral,inferior and posterior aspects of scrotum. These wounds noted to be oozing moderate amts of serosanguineous exudate. Hypertrophic scar with scattered areas of hyperpigmentation noted to Sacrum. DTPI noted to L Buttocks (L)7cm x (W)9cm. Base of wound is purple and indurated.Darker skin tone without erythema, induration or fluctuance R and L ischial tuberosities. Both heels are boggy with non-blanchable erythema. Tx.Plan: Cleanse wound R elbow with Saline. Apply TheraHoney, Apply Moisture Barrier Paste periwound. Cover with Optifoam drsg.Change Daily and prn. Wash GT site with soap and water.Pat dry. Apply Zinc Oxide Paste to GT site Daily. Leave Open to Air. Apply Zinc Oxide Paste to entire Scrotum, Place ABD pads to R and L lateral, and posterior aspects of scrotum TWICE daily. Apply Cavilon Skin Barrier to malleoli and both Heels. Cover each site with Optifoam drsgs. Change every 7 days and prn. Reposition at least every 2hours or as tolerated. Off-load heels with Pillows. APM/BECCA Mattress overlay. (10) Malnutrition Assessment & Plan: DAILY ESTIMATED NEEDS: Needs based on Renal, critical care, wound/ 61kg 22-28 kcals/kg 5734-1608 total kcals 1-1.25 (increase w/ renal improvement) g protein/kg 61-76 g total protein 20-25 mL/kg 0885-1177 total fluid mLs NUTRITION DIAGNOSIS: * Swallowing difficulty R/T respiratory failure, dysphagia as evidenced by trach/vent dep, PEG dep * Increased kcal/prot needs R/T wound healing as evidenced by admitted w/ multiple pressure injuries per photos, pending eval. CURRENT TF:Nepro @ 45ml/hr x 24 hrs ENTERAL NUTRITION RECOMMENDATIONS: NEPRO to 45ml/hr x 20 hrs to provide 900ml, 1620kcal, 73g prot, 654ml free water * Maintain current TF * HOB over 30 degrees/ water flush per MD ADDITIONAL RECOMMENDATIONS: * Per SNF: HT=63" EO=922 lbs (Vs EMR wt of 165lbs) -> obtain re-calibrated bedscale wt * Wound healing: add Nephrovite x 1 + Vit C 250mg QD add Garo 1pkt BID via GT * Monitor renal fxn and lytes, check phos level (11) Uremia (12) CKD (chronic kidney disease) stage 5, GFR less than 15 ml/min Jonathan Urias Aug 17, 2019 14:08
--- NOTE | 2019-08-17 15:17 | NUR ---
*-* INSURANCE *-* UPDATED CLINICALS AND REVIEWS HAVE BEEN FAXED TO: ELIN P:[phone] F:[phone]
--- NOTE | 2019-08-17 15:28 | NUR ---
NURSE NOTES: Pt incontinent of liquid tarry black diarrhea stools .kept dry and clean,pulled turned and repositioned.
[2019-08-17 16:08] VITALS: BP 133/57
--- NOTE | 2019-08-17 16:35 | Diagnostic Imaging Report ---
CLINICAL INDICATION:Chest and abdominal pain, pneumonia, renal failure, leukocytosis, anemia, anasarca TECHNIQUE: Patient given enteric contrast. IV administration nonionic contrast. Spiral acquisitions obtained through the chest, abdomen, and pelvis. Multiplanar reconstructions were generated. Total dose length product 1266 mGycm. CTDIvol(s) 171 mGy. Radiation dose was minimized using automated exposure control COMPARISON: none FINDINGS Chest: There are large bilateral pleural effusions, larger on the right than on the left. This results in compressive atelectasis of portions of both lower lobes. Hazy and dense consolidative opacities, the latter in a predominantly perihilar bronchovascular distribution, are seen in both lungs, especially the upper lobes. The heart size is upper limits of normal. There is a tracheostomy. The trachea and proximal bronchi are patent. No evident pericardial effusion. There is a left chest pacemaker. Prominent but not frankly enlarged mediastinal lymph nodes are noted. The thyroid is unremarkable. There are incompletely healed fracture deformities of the right sixth, eighth, and ninth ribs, with a bony bridge between the sixth and seventh rib, fracture deformity of the latter appearing healed. No axillary or chest wall mass or adenopathy. There is diffuse edema of the subcutaneous fat. Abdomen pelvis: The sigmoid colon is markedly dilated, especially proximally. There appear to be adjacent and opposing points of narrowing of the sigmoid entering and exiting the dilated segment. No wall thickening or pneumatosis demonstrated. The appendix is normal. There is colonic diverticulosis. No evidence of diverticulitis. No small bowel distention or small bowel wall thickening. No free or loculated intraperitoneal gas or fluid is evident. The distal esophagus is unremarkable. The stomach contains a gastrostomy. There is a central venous catheter in the right groin, catheter entering via the right common femoral vein, tip in the common iliac vein. There is ill-defined thickening of the right pectineus muscle belly and a 12 mm focus of what appears to be central contrast enhancement. The liver, gallbladder, bile ducts, pancreas, spleen, adrenals, kidneys are unremarkable. No renal or ureteral calculi, hydronephrosis, nor hydroureter. The bladder contains a Avalos catheter. It demonstrates marked wall thickening. The prostate is unremarkable. No pelvic mass or adenopathy. There is diffuse edema of the subcutaneous fat of the abdominal and pelvic rodrigues. The bones demonstrate degenerative spondylosis changes, are otherwise unremarkable. IMPRESSION: Marked distention of the sigmoid colon. 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 No evidence of bowel wall thickening or pneumatosis 12 mm focus of contrast enhancement in the right pectineus muscle. While nonspecific in appearance, appearance raises concern for a possible pseudoaneurysm. Ill-defined thickening of the pectus medius muscle could indicate some intramuscular hemorrhage. The above findings were phoned to Dr. Urias at the time of interpretation Large bilateral pleural effusions Hazy pulmonary parenchymal opacities as well as dense consolidative opacities most likely represent pulmonary edema, but could represent pneumonia Evidence of anasarca elsewhere, with generalized edema of the subcutaneous fat Bladder wall thickening, raises concern for cystitis. Avalos catheter in place Colonic diverticulosis. No evidence of diverticulitis. Tracheostomy Pacemaker Gastrostomy Incidental finding of degenerative spondylosis The CT scanner at [facility] is accredited by the [employer] and the scans are performed using protocols designed to limit radiation exposure to as low as reasonably achievable to attain images of sufficient resolution adequate for diagnostic evaluation.
[2019-08-17] MEDS: Piperacillin/Tazobactam 2.25 GM in NS 55 ML IV SCH ×2 (16:44→23:12)
--- NOTE | 2019-08-17 16:59 | NUR ---
RESPIRATORY NOTE: Pt. received on vent settings 15/450/25%/ +5. Pt is trached with a portex 8, cuffed. Pt B/S Rhonchi bilaterally. SX scant white secretions. Pt. SpO2 98-100%. Alarms are on and audible, BMV at bedside, and vent plugged in red outlet. Will continue to monitor.
--- NOTE | 2019-08-17 17:30 | NUR ---
NURSE NOTES: Hemodialysis Nurses at bedside,with ongoing Hemodialysis,procedure tolerated.
--- NOTE | 2019-08-17 19:10 | NUR ---
HAND-OFF: Report given to RONEY Wang RN..
--- NOTE | 2019-08-17 19:15 | NUR ---
NURSE NOTES: Received report from TAMICA Ennis. Patient asleep, afebrile and no respiratory distress. V paced on 5 lead cardiac rehab nurse. On [facility] vent P8, ac 16, TV 450, FiO2 25%, peep 5. With Right wrist 22g IV line intact, patent and asymptomatic. On Nephro 45cc/hr x 20 hrs via GT intact and infusing well. With right femoral julito cath intact, clean and asymptomatic. currently on hemodialysis at bedside with jailyn Phan RN, pt tolerating well. VS are stable. Needs were attended. HOB elevated. Bed rails are up and wheels are locked. Call light within reach. Continue plan of care.
[2019-08-17 20:00] VITALS: BP 132/55
[2019-08-17] MEDS: Dyna-Hex 2% Top Sol 2oz TOPIC SCH (21:25)
[2019-08-17] MEDS: Atorvastatin 20mg tab GT SCH (21:26)
--- NOTE | 2019-08-17 22:45 | General Progress Note ---
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, doubt volvulus - Anemia - Black stools, but patient on po Iron - stool OB (+) - EGD --> gastritis, Colonoscopy --> not planned since done recently - Renal failure - Sepsis / leukocytosis - Anasarca - resp failure, trach - dysphagia, GT - encephalopathy, contracted - loose BM, C Diff (-) x 1 Recommendations - GGE - Iron panel noted - PPI - abx - supportive care Subjective Allergies: Coded Allergies: No Known Allergies (Unverified , 06/10/19) Subjective Above noted NAD tolerating feeds loose BM d/w RN d/w surgery Objective Last 24 Hour Vital Signs Date Time Temp Pulse Resp B/P (MAP) Pulse Ox O2 Delivery O2 Flow Rate FiO2 08/17/19 21:26 69 132/55 08/17/19 20:00 25 08/17/19 20:00 97.2 69 20 132/55 (80) 100 08/17/19 20:00 Mechanical Ventilator 15.0 08/17/19 19:43 73 08/17/19 19:21 71 16 25 08/17/19 16:08 96.6 63 20 133/57 (82) 100 08/17/19 16:07 25 08/17/19 16:00 62 08/17/19 16:00 Mechanical Ventilator 15.0 08/17/19 15:30 63 15 25 08/17/19 12:00 Mechanical Ventilator 15.0 08/17/19 12:00 25 08/17/19 12:00 60 08/17/19 12:00 97.5 60 16 118/46 (70) 100 08/17/19 11:05 61 16 25 08/17/19 08:20 60 110/42 08/17/19 08:19 134/52 08/17/19 08:00 61 08/17/19 08:00 97.5 60 16 110/42 (64) 100 08/17/19 08:00 25 08/17/19 08:00 Mechanical Ventilator 15.0 08/17/19 06:50 60 15 25 08/17/19 04:00 Mechanical Ventilator 15.0 08/17/19 04:00 25 08/17/19 04:00 97.3 61 17 134/52 (79) 98 08/17/19 03:27 60 08/17/19 03:19 60 15 25 08/17/19 00:00 Mechanical Ventilator 15.0 08/17/19 00:00 97.2 62 17 135/56 (82) 98 08/16/19 23:35 65 08/16/19 22:54 67 15 25 Intake and Output 08/16/19 08/17/19 19:00 07:00 Intake Total 775 ml 335.0 ml Output Total 100 ml 350 ml Balance 675 ml -15.0 ml Free Water 100 ml IV Total 110.0 ml Tube Feeding 315 ml 225 ml Other 360 ml Output Urine Total 100 ml 350 ml # Bowel Movements 2 Laboratory Tests 08/16/19 23:41: POC Whole Blood Glucose 198H 08/17/19 03:55: White Blood Count 25.4*H, Red Blood Count 3.36L, Hemoglobin 9.0L, Hematocrit 29.3L, Mean Corpuscular Volume 87, Mean Corpuscular Hemoglobin 26.8L, Mean Corpuscular Hemoglobin Concent 30.7L, Red Cell Distribution Width 16.9H, Platelet Count 369, Mean Platelet Volume 5.2L, Neutrophils (%) (Auto) , Lymphocytes (%) (Auto) , Monocytes (%) (Auto) , Eosinophils (%) (Auto) , Basophils (%) (Auto) , Differential Total Cells Counted 100, Neutrophils % ( Manual) 76H, Lymphocytes % (Manual) 15L, Monocytes % (Manual) 6, Eosinophils % ( Manual) 3, Basophils % (Manual) 0, Band Neutrophils 0, Platelet Estimate Adequate, Platelet Morphology Normal, Hypochromasia 2+, Anisocytosis 1+, Sodium Level 138, Potassium Level 3.1L, Chloride Level 102, Carbon Dioxide Level 23, Anion Gap 13, Blood Urea Nitrogen 119H, Creatinine 3.7H, Estimat Glomerular Filtration Rate 16.0, Glucose Level 152H, Calcium Level 8.9, Hepatitis B Surface Antigen [Pending], Hepatitis B Surface Antibody, Quant [Pending], Hepatitis C Antibody [Pending] 08/17/19 04:52: POC Whole Blood Glucose 144H 08/17/19 11:20: POC Whole Blood Glucose 130H 08/17/19 18:36: POC Whole Blood Glucose [Pending] Height (Feet): 6 Height (Inches): 7 Weight (Pounds): 166 Objective Debilitated AA man NCAT (+) trach coarse BS RR abd distended, anasarca, (+) GT ext (+) edema contracted Ronny Mustafa MD Aug 17, 2019 22:44
[2019-08-18] VITALS: BP 142/71
[2019-08-18 04:00] VITALS: BP 127/58
[2019-08-18 05:16] LABS: HEMATOCRIT 27.9 % (42.0-52.0); HEMOGLOBIN 8.7 G/DL (14.2-18.0); MEAN CORPUSCULAR VOLUME 87 FL (80-99); PLATELET COUNT 305 K/UL (150-450); RED BLOOD COUNT 3.21 M/UL (4.70-6.10); RED CELL DISTRIBUTION WIDTH 17.1 % (11.6-14.8)
[2019-08-18] MEDS: NovoLOG Insulin Flexpen SUBQ SCH ×4 (05:18→23:23)
[2019-08-18 05:25] LABS: ANION GAP 11 mmol/L (5-15); BLOOD UREA NITROGEN 71 mg/dL (7-18); CALCIUM 8.9 MG/DL (8.5-10.1); CARBON DIOXIDE 25 MMOL/L (21-32); CHLORIDE 103 MMOL/L (98-107); CREATININE 2.5 MG/DL (0.55-1.30); PHOSPHORUS 1.7 MG/DL (2.5-4.9); POTASSIUM 2.8 MMOL/L (3.5-5.1); SODIUM 139 MMOL/L (136-145)
[2019-08-18 05:27] LABS: WHITE BLOOD COUNT 22.7 K/UL (4.8-10.8)
--- NOTE | 2019-08-18 07:52 | General Progress Note ---
Assessment/Plan Assessment/Plan: IMPRESSION: 1. anemia. 2. GI bleed. 3. Leukocytosis. 4. Probable sepsis. + BCX 5. Acute on chronic renal failure. 6. Hyponatremia. 7. Severe protein-calorie malnutrition. 8. Significantly elevated C-reactive protein concerning for infectious etiology. 9. Tracheostomy, G-tube. 10. Ventilator dependence. 11. anasarca with bilateral pleural effusion 12. 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 PLAN care noted on vent surgical follow up monitor sodium rate control HD monitor renal function: HD iv antibiotics sears CT noted multiple + cultures care noted and reviewed remains ill impression, plan, and exam edited and reviewed in detail care discussed with RN Subjective Allergies: Coded Allergies: No Known Allergies (Unverified , 06/10/19) Subjective remains ill on vent needs HD weekend events noted Objective Last 24 Hour Vital Signs Date Time Temp Pulse Resp B/P (MAP) Pulse Ox O2 Delivery O2 Flow Rate FiO2 08/18/19 07:05 60 15 25 08/18/19 04:00 Mechanical Ventilator 15.0 08/18/19 04:00 25 08/18/19 04:00 97.7 61 20 127/58 (81) 100 08/18/19 03:28 61 08/18/19 02:48 70 16 25 08/18/19 00:00 64 08/18/19 00:00 97.5 64 20 142/71 (94) 100 08/18/19 00:00 Mechanical Ventilator 15.0 08/17/19 22:58 65 15 25 08/17/19 21:26 69 132/55 08/17/19 20:00 25 08/17/19 20:00 97.2 69 20 132/55 (80) 100 08/17/19 20:00 Mechanical Ventilator 15.0 08/17/19 19:43 73 08/17/19 19:21 71 16 25 08/17/19 16:08 96.6 63 20 133/57 (82) 100 08/17/19 16:07 25 08/17/19 16:00 62 08/17/19 16:00 Mechanical Ventilator 15.0 08/17/19 15:30 63 15 25 08/17/19 12:00 Mechanical Ventilator 15.0 08/17/19 12:00 25 08/17/19 12:00 60 08/17/19 12:00 97.5 60 16 118/46 (70) 100 08/17/19 11:05 61 16 25 08/17/19 08:20 60 110/42 08/17/19 08:19 134/52 08/17/19 08:00 61 08/17/19 08:00 97.5 60 16 110/42 (64) 100 08/17/19 08:00 25 08/17/19 08:00 Mechanical Ventilator 15.0 Intake and Output 08/17/19 08/18/19 19:00 07:00 Intake Total 580 ml 560 ml Output Total 200 ml 2250 ml Balance 380 ml -1690 ml Free Water 200 ml 100 ml IV Total 55 ml Tube Feeding 270 ml 405 ml Other 110 ml Output Urine Total 200 ml 250 ml Hemodialysis UF 2000 ml # Bowel Movements 4 2 Laboratory Tests 08/17/19 11:20: POC Whole Blood Glucose 130H 08/17/19 18:36: POC Whole Blood Glucose [Pending] 08/17/19 23:10: POC Whole Blood Glucose 153H 08/18/19 03:25: White Blood Count 22.7*H, Red Blood Count 3.21L, Hemoglobin 8.7L, Hematocrit 27.9L, Mean Corpuscular Volume 87, Mean Corpuscular Hemoglobin 27.2, Mean Corpuscular Hemoglobin Concent 31.4L, Red Cell Distribution Width 17.1H, Platelet Count 305, Mean Platelet Volume 5.2L, Neutrophils (%) (Auto) , Lymphocytes (%) (Auto) , Monocytes (%) (Auto) , Eosinophils (%) (Auto) , Basophils (%) (Auto) , Neutrophils % (Manual) [Pending], Lymphocytes % (Manual) [Pending], Platelet Estimate [Pending], Platelet Morphology [Pending], Sodium Level 139, Potassium Level 2.8L, Chloride Level 103, Carbon Dioxide Level 25, Anion Gap 11, Blood Urea Nitrogen 71H, Creatinine 2.5H, Estimat Glomerular Filtration Rate 25.1, Glucose Level 140H, Calcium Level 8.9, Phosphorus Level 1.7L, Magnesium Level 3.1H 08/18/19 05:15: POC Whole Blood Glucose [Pending] Height (Feet): 6 Height (Inches): 7 Weight (Pounds): 166 Objective GENERAL: Ill-appearing male, chronically debilitated. HEENT: Tracheostomy in midline. Questionable fullness in the submandibular region. LUNGS: Coarse breath sounds. reduced breath sounds CARDIAC: S1, S2. Regular rate and rhythm. ABDOMEN: Soft. G-tube. EXTREMITIES: With noted edema. NEUROLOGICAL: Poorly responsive, weak diffusely. Kain Ramirez MD Aug 18, 2019 07:52
[2019-08-18 08:00] VITALS: BP 127/59
[2019-08-18] MEDS: Piperacillin/Tazobactam 2.25 GM in NS 55 ML IV SCH ×3 (08:00→23:22)
--- NOTE | 2019-08-18 08:15 | NUR ---
NURSE NOTES: Rcvd pt. Patient asleep and obtunded, Pt has trach with vent settings set at vent P8, ac 16, TV 450, FiO2 25%, peep 5. Pt has O2 sat 100% and producing white clear sputum. Pt is showing up as V paced on core extruder. Pt has Right wrist 22g IV line intact, patent and asymptomatic. G tube noted with Feeding Nepro at 45cc/hr x 20 hrs (currently off). Pt has femoral julito for HD, scheduled for tomorrow. Pt anasarca is visibly noted. Penis and scrotum are severely swollen and excoriation to the left base of the penis and on posterior side of the scrotum. Avalos cath 16 fr is noted and draining and secured to leg. VS are stable.HOB elevated, aspiration cautions observed. Bed rails are up and wheels are locked. Fall precautions observed. Call light within reach. Continue plan of care.
--- NOTE | 2019-08-18 08:16 | NUR ---
NURSE NOTES: Left message for Dr Ramirez regarding abnormal labs: K 2.8, phos 1.7, mag 3.1, waiting call back for further orders
--- NOTE | 2019-08-18 09:05 | Surgery Progress Note ---
Surgery Progress Note Subjective Procedure Performed Right femoral temporary hemodialysis catheter insertion Additional Comments discussed CT findings with radiology and GI suspect functional as patient having loose BM often rectal tube placement KUB f/u Objective Last 24 Hour Vital Signs Date Time Temp Pulse Resp B/P (MAP) Pulse Ox O2 Delivery O2 Flow Rate FiO2 08/18/19 07:05 60 15 25 08/18/19 04:00 Mechanical Ventilator 15.0 08/18/19 04:00 25 08/18/19 04:00 97.7 61 20 127/58 (81) 100 08/18/19 03:28 61 08/18/19 02:48 70 16 25 08/18/19 00:00 64 08/18/19 00:00 97.5 64 20 142/71 (94) 100 08/18/19 00:00 Mechanical Ventilator 15.0 08/17/19 22:58 65 15 25 08/17/19 21:26 69 132/55 08/17/19 20:00 25 08/17/19 20:00 97.2 69 20 132/55 (80) 100 08/17/19 20:00 Mechanical Ventilator 15.0 08/17/19 19:43 73 08/17/19 19:21 71 16 25 08/17/19 16:08 96.6 63 20 133/57 (82) 100 08/17/19 16:07 25 08/17/19 16:00 62 08/17/19 16:00 Mechanical Ventilator 15.0 08/17/19 15:30 63 15 25 08/17/19 12:00 Mechanical Ventilator 15.0 08/17/19 12:00 25 08/17/19 12:00 60 08/17/19 12:00 97.5 60 16 118/46 (70) 100 08/17/19 11:05 61 16 25 I&O Intake and Output 08/17/19 08/18/19 19:00 07:00 Intake Total 580 ml 560 ml Output Total 200 ml 2250 ml Balance 380 ml -1690 ml Free Water 200 ml 100 ml IV Total 55 ml Tube Feeding 270 ml 405 ml Other 110 ml Output Urine Total 200 ml 250 ml Hemodialysis UF 2000 ml # Bowel Movements 4 2 Dressing: other Wound: other Drains: other Cardiovascular: RSR Respiratory: decreased breath sounds Abdomen: soft, distended, present bowel sounds Extremities: edema, no tenderness, no cyanosis Laboratory Tests Test 08/17/19 11:20 08/17/19 18:36 08/17/19 23:10 08/18/19 03:25 POC Whole Blood Glucose 130 MG/DL (74-106) H Pending 153 MG/DL (74-106) H White Blood Count 22.7 K/UL (4.8-10.8) *H Red Blood Count 3.21 M/UL (4.70-6.10) L Hemoglobin 8.7 G/DL (14.2-18.0) L Hematocrit 27.9 % (42.0-52.0) L Mean Corpuscular Volume 87 FL (80-99) Mean Corpuscular Hemoglobin 27.2 PG (27.0-31.0) Mean Corpuscular Hemoglobin Concent 31.4 G/DL (32.0-36.0) L Red Cell Distribution Width 17.1 % (11.6-14.8) H Platelet Count 305 K/UL (150-450) Mean Platelet Volume 5.2 FL (6.5-10.1) L Neutrophils (%) (Auto) % (45.0-75.0) Lymphocytes (%) (Auto) % (20.0-45.0) Monocytes (%) (Auto) % (1.0-10.0) Eosinophils (%) (Auto) % (0.0-3.0) Basophils (%) (Auto) % (0.0-2.0) Differential Total Cells Counted 100 Neutrophils % (Manual) 91 % (45-75) H Lymphocytes % (Manual) 4 % (20-45) L Monocytes % (Manual) 4 % (1-10) Eosinophils % (Manual) 1 % (0-3) Basophils % (Manual) 0 % (0-2) Band Neutrophils 0 % (0-8) Platelet Estimate Adequate Platelet Morphology Normal Hypochromasia 2+ Anisocytosis 1+ Sodium Level 139 MMOL/L (136-145) Potassium Level 2.8 MMOL/L (3.5-5.1) L Chloride Level 103 MMOL/L (98-107) Carbon Dioxide Level 25 MMOL/L (21-32) Anion Gap 11 mmol/L (5-15) Blood Urea Nitrogen 71 mg/dL (7-18) H Creatinine 2.5 MG/DL (0.55-1.30) H Estimat Glomerular Filtration Rate 25.1 mL/min (>60) Glucose Level 140 MG/DL (74-106) H Calcium Level 8.9 MG/DL (8.5-10.1) Phosphorus Level 1.7 MG/DL (2.5-4.9) L Magnesium Level 3.1 MG/DL (1.8-2.4) H Test 08/18/19 05:15 POC Whole Blood Glucose Pending Plan Problems: (1) Anemia (2) Hyponatremia (3) Leukocytosis Assessment & Plan: Tracheostomy, left chest pacemaker are again demonstrated. There is bilateral interstitial and airspace disease and bilateral pleural fluid again demonstrated. This appears more severe than on the prior study. Bilateral interstitial and airspace infiltrates versus edema. Bilateral pleural effusions Leukocytosis, anemia, tachycardia, abnormal labs. Wound evaluated and likely etiology of patient's sepsis. Leukocytosis etiology work-up antibiotics per infectious disease Appreciate nephrology input transfuse with dialysis We will follow with recommendations thank you allowing participation's care plan HD access temp HD discussed with medical teams line okay HD as per renal persistent leukocytosis flow cyto noted (4) Ventilator dependent (5) Right lower lobe pneumonia (6) Hypokalemia (7) Hyperkalemia (8) Anasarca (9) Decubitus skin ulcer Assessment & Plan: pt presented on admission with generalized edemae.Skin assessed under tracheostomy and no areas of concerns noted. GT Insertion is marginally erythematous with small amt slough at stoma. Unstageable Pressure Injury R elbow. Base of wound is 100% yellow slough, Borders are erythematous. Wound oozing small amt haemopurulent exudate.Darker skin tone without elevation in skin temp or erythema periwound. Pt's penis and scrotum are grossly edematous and enlarged and weeping serous exudate from numerous sites both from penis and scrotum. Two small open wounds noted at base of at base of shaft of penis ,and contreras aspect of scrotum. Both wounds oozing large amt sanguineous and serosanguineous exudate. Multiple open wounds with Biofilm at base of each wounds noted to contreras/lateral,inferior and posterior aspects of scrotum. These wounds noted to be oozing moderate amts of serosanguineous exudate. Hypertrophic scar with scattered areas of hyperpigmentation noted to Sacrum. DTPI noted to L Buttocks (L)7cm x (W)9cm. Base of wound is purple and indurated.Darker skin tone without erythema, induration or fluctuance R and L ischial tuberosities. Both heels are boggy with non-blanchable erythema. Tx.Plan: Cleanse wound R elbow with Saline. Apply TheraHoney, Apply Moisture Barrier Paste periwound. Cover with Optifoam drsg.Change Daily and prn. Wash GT site with soap and water.Pat dry. Apply Zinc Oxide Paste to GT site Daily. Leave Open to Air. Apply Zinc Oxide Paste to entire Scrotum, Place ABD pads to R and L lateral, and posterior aspects of scrotum TWICE daily. Apply Cavilon Skin Barrier to malleoli and both Heels. Cover each site with Optifoam drsgs. Change every 7 days and prn. Reposition at least every 2hours or as tolerated. Off-load heels with Pillows. APM/BECCA Mattress overlay. (10) Malnutrition Assessment & Plan: DAILY ESTIMATED NEEDS: Needs based on Renal, critical care, wound/ 61kg 22-28 kcals/kg 9816-9906 total kcals 1-1.25 (increase w/ renal improvement) g protein/kg 61-76 g total protein 20-25 mL/kg 4628-6644 total fluid mLs NUTRITION DIAGNOSIS: * Swallowing difficulty R/T respiratory failure, dysphagia as evidenced by trach/vent dep, PEG dep * Increased kcal/prot needs R/T wound healing as evidenced by admitted w/ multiple pressure injuries per photos, pending eval. CURRENT TF:Nepro @ 45ml/hr x 24 hrs ENTERAL NUTRITION RECOMMENDATIONS: NEPRO to 45ml/hr x 20 hrs to provide 900ml, 1620kcal, 73g prot, 654ml free water * Maintain current TF * HOB over 30 degrees/ water flush per MD ADDITIONAL RECOMMENDATIONS: * Per SNF: HT=63" OJ=540 lbs (Vs EMR wt of 165lbs) -> obtain re-calibrated bedscale wt * Wound healing: add Nephrovite x 1 + Vit C 250mg QD add Garo 1pkt BID via GT * Monitor renal fxn and lytes, check phos level (11) Uremia (12) CKD (chronic kidney disease) stage 5, GFR less than 15 ml/min (13) Colon distention Assessment & Plan: discussed with GI likely functional as having lots of loose bm rectal tube kub f/u Marked distention of the sigmoid colon. 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 No evidence of bowel wall thickening or pneumatosis 12 mm focus of contrast enhancement in the right pectineus muscle. While nonspecific in appearance, appearance raises concern for a possible pseudoaneurysm. Ill- defined thickening of the pectus medius muscle could indicate some intramuscular hemorrhage. The above findings were phoned to Dr. Urias at the time of interpretation Large bilateral pleural effusions Hazy pulmonary parenchymal opacities as well as dense consolidative opacities most likely represent pulmonary edema, but could represent pneumonia Evidence of anasarca elsewhere, with generalized edema of the subcutaneous fat Bladder wall thickening, raises concern for cystitis. Avalos catheter in place Colonic diverticulosis. No evidence of diverticulitis. Tracheostomy Pacemaker Gastrostomy Jonathan Urias Aug 18, 2019 09:05
[2019-08-18] MEDS: Vitamin D 1000 IU Tab GT SCH (09:31)
[2019-08-18] MEDS: Nephrovite tab (Rena-Vite) GT SCH (09:32)
[2019-08-18] MEDS: Minoxidil 2.5mg tab GT SCH (09:32)
[2019-08-18] MEDS: Ascorbic Acid 500mg tab GT SCH (09:32)
[2019-08-18] MEDS: Metoprolol Tartrate 100mg tab GT SCH ×2 (09:32→20:50)
[2019-08-18] MEDS: Multivitamins W/Minerals 15 ML UDC GT SCH (09:33)
[2019-08-18] MEDS: Zinc Oxide Oint 2oz TOPIC SCH ×2 (09:34→17:38)
--- NOTE | 2019-08-18 09:59 | Infectious Diseases Prog Note ---
Assessment/Plan Assessment/Plan antibiotics : zosyn A 1. VRE UTI 2. + blood cultures with coag neg staph likely contaminated 3. respiratory failure 4. leucocytosis improving 5. group G streptococcus, providencia, pseudomonas, serratia pneumonia COVID 19 test negative x 2 6. renal failure on HD P 1. continue zosyn 4 more days 2. will follow up cultures Subjective ROS Limited/Unobtainable: Yes Allergies: Coded Allergies: No Known Allergies (Unverified , 06/10/19) Objective Last 24 Hour Vital Signs Date Time Temp Pulse Resp B/P (MAP) Pulse Ox O2 Delivery O2 Flow Rate FiO2 08/18/19 09:32 64 127/59 08/18/19 09:32 127/59 08/18/19 08:00 97.7 64 18 127/59 (81) 100 08/18/19 07:05 60 15 25 08/18/19 04:00 Mechanical Ventilator 15.0 08/18/19 04:00 25 08/18/19 04:00 97.7 61 20 127/58 (81) 100 08/18/19 03:28 61 08/18/19 02:48 70 16 25 08/18/19 00:00 64 08/18/19 00:00 97.5 64 20 142/71 (94) 100 08/18/19 00:00 Mechanical Ventilator 15.0 08/17/19 22:58 65 15 25 08/17/19 21:26 69 132/55 08/17/19 20:00 25 08/17/19 20:00 97.2 69 20 132/55 (80) 100 08/17/19 20:00 Mechanical Ventilator 15.0 08/17/19 19:43 73 08/17/19 19:21 71 16 25 08/17/19 16:08 96.6 63 20 133/57 (82) 100 08/17/19 16:07 25 08/17/19 16:00 62 08/17/19 16:00 Mechanical Ventilator 15.0 08/17/19 15:30 63 15 25 08/17/19 12:00 Mechanical Ventilator 15.0 08/17/19 12:00 25 08/17/19 12:00 60 08/17/19 12:00 97.5 60 16 118/46 (70) 100 08/17/19 11:05 61 16 25 Height (Feet): 6 Height (Inches): 7 Weight (Pounds): 166 HEENT: status post trach Respiratory/Chest: lungs clear Cardiovascular: normal rate, regular rhythm, no gallop/murmur Abdomen: soft, non tender, other - GT Extremities: other - + edema Microbiology Date/Time Source Procedure Growth Status 08/16/19 16:10 Stool Clostridium difficile Toxin Assay - Final Complete Laboratory Tests Test 08/17/19 11:20 08/17/19 18:36 08/17/19 23:10 08/18/19 03:25 POC Whole Blood Glucose 130 MG/DL (74-106) H Pending 153 MG/DL (74-106) H White Blood Count 22.7 K/UL (4.8-10.8) *H Red Blood Count 3.21 M/UL (4.70-6.10) L Hemoglobin 8.7 G/DL (14.2-18.0) L Hematocrit 27.9 % (42.0-52.0) L Mean Corpuscular Volume 87 FL (80-99) Mean Corpuscular Hemoglobin 27.2 PG (27.0-31.0) Mean Corpuscular Hemoglobin Concent 31.4 G/DL (32.0-36.0) L Red Cell Distribution Width 17.1 % (11.6-14.8) H Platelet Count 305 K/UL (150-450) Mean Platelet Volume 5.2 FL (6.5-10.1) L Neutrophils (%) (Auto) % (45.0-75.0) Lymphocytes (%) (Auto) % (20.0-45.0) Monocytes (%) (Auto) % (1.0-10.0) Eosinophils (%) (Auto) % (0.0-3.0) Basophils (%) (Auto) % (0.0-2.0) Differential Total Cells Counted 100 Neutrophils % (Manual) 91 % (45-75) H Lymphocytes % (Manual) 4 % (20-45) L Monocytes % (Manual) 4 % (1-10) Eosinophils % (Manual) 1 % (0-3) Basophils % (Manual) 0 % (0-2) Band Neutrophils 0 % (0-8) Platelet Estimate Adequate Platelet Morphology Normal Hypochromasia 2+ Anisocytosis 1+ Sodium Level 139 MMOL/L (136-145) Potassium Level 2.8 MMOL/L (3.5-5.1) L Chloride Level 103 MMOL/L (98-107) Carbon Dioxide Level 25 MMOL/L (21-32) Anion Gap 11 mmol/L (5-15) Blood Urea Nitrogen 71 mg/dL (7-18) H Creatinine 2.5 MG/DL (0.55-1.30) H Estimat Glomerular Filtration Rate 25.1 mL/min (>60) Glucose Level 140 MG/DL (74-106) H Calcium Level 8.9 MG/DL (8.5-10.1) Phosphorus Level 1.7 MG/DL (2.5-4.9) L Magnesium Level 3.1 MG/DL (1.8-2.4) H Test 08/18/19 05:15 POC Whole Blood Glucose Pending Current Medications Medications (Trade) Dose Ordered Sig/Leonel Route PRN Reason Start Time Stop Time Status Last Admin Dose Admin Acetaminophen (Tylenol) 650 mg Q4H PRN GT Mild Pain / fever 08/09/19 05:30 09/08/19 05:29 Al Hydroxide/Mg Hydroxide (Mylanta) 30 ml FOUR TIMES A DAY PRN GT constipation 08/09/19 06:00 09/08/19 05:29 Ascorbic Acid (Vitamin C) 500 mg DAILY GT 08/09/19 09:00 09/08/19 08:59 08/18/19 09:32 Atorvastatin Calcium (Lipitor) 40 mg BEDTIME GT 08/09/19 21:00 11/07/19 20:59 08/17/19 21:26 Barium Sulfate (Readi-Cat 2) 450 ml NOW PRN ORAL Radiology Procedure 08/16/19 10:45 08/18/19 10:37 Chlorhexidine Gluconate (Felipa-Hex 2%) 1 applic DAILY@1999 TOPIC 08/15/19 20:00 11/13/19 19:59 08/17/19 21:25 Clonidine HCl (Catapres Tab) 0.1 mg Q4H PRN GT SBP>150 08/12/19 10:45 11/10/19 06:44 Dextrose (Dextrose 50%) 25 ml Q30M PRN IV Hypoglycemia 08/09/19 07:30 11/07/19 07:29 Dextrose (Dextrose 50%) 50 ml Q30M PRN IV Hypoglycemia 08/09/19 07:30 11/07/19 07:29 Epoetin Andreas (Epoetin Andreas-EPBX(NON ESRD)) 8,000 unit WED-WED-WED SUBQ 08/09/19 21:00 11/07/19 20:59 08/16/19 20:17 Insulin Aspart (NovoLOG) Q6HR SUBQ 08/10/19 00:00 11/07/19 11:29 08/18/19 05:18 Lansoprazole (Prevacid) 30 mg DAILY GT 08/09/19 09:00 09/08/19 08:59 08/18/19 09:32 Loperamide HCl (Imodium) 2 mg Q4H PRN GT Diarrhea 08/09/19 08:00 09/08/19 07:59 Metoprolol Tartrate (Lopressor) 200 mg Q12HR GT 08/09/19 09:00 11/07/19 08:59 08/18/19 09:32 Minoxidil (Loniten) 5 mg DAILY GT 08/09/19 09:00 11/07/19 08:59 08/18/19 09:32 Multivitamins (Multivitamins W/ Minerals 15ml Liquid) 15 ml DAILY GT 08/09/19 09:00 09/08/19 08:59 08/18/19 09:33 Piperacillin Sod/ Tazobactam Sod 2.25 gm/Sodium Chloride 55 ml @ 110 mls/hr Q8H IV 08/17/19 16:00 08/18/19 23:59 08/18/19 08:00 Vitamin B Complex/ Vit C/Folic Acid (Nephrovite) 1 tab DAILY GT 08/09/19 09:00 09/08/19 08:59 08/18/19 09:32 Vitamin D (Vitamin D) 1,000 intlu DAILY GT 08/09/19 09:00 09/08/19 08:59 08/18/19 09:31 Zinc Oxide (Zinc Oxide) 1 applic BID TOPIC 08/10/19 18:00 11/08/19 17:59 08/18/19 09:34 Farnaz Lyle MD Aug 18, 2019 09:59
--- NOTE | 2019-08-18 10:44 | NUR ---
*-* INSURANCE *-* UPDATED CLINICALS HAVE BEEN FAXED TO: [facility] P:[phone] F:[phone]
--- NOTE | 2019-08-18 10:57 | NUR ---
RD ASSESSMENT & RECOMMENDATIONS SEE CARE ACTIVITY FOR COMPLETE ASSESSMENT DAILY ESTIMATED NEEDS: Needs based on Renal, critical care, wound/ 61kg 22-30 kcals/kg 3014-7308 total kcals 1.25-2 g protein/kg 76-122 g total protein Fluid per MD, now on HD NUTRITION DIAGNOSIS: * Swallowing difficulty R/T respiratory failure, dysphagia as evidenced by trach/vent dep, PEG dep * Increased kcal/prot needs R/T wound healing as evidenced by admitted w/ multiple pressure injuries per photos, pending eval. CURRENT TF:Nepro @ 45ml/hr ENTERAL NUTRITION RECOMMENDATIONS: NEPRO to 45ml/hr x 22 hrs to provide 990ml, 1782kcal, 80g prot, 720ml free water * Maintain current TF rate, rec goal of 22 hrs for 2 hrs bowel rest d/t diarrhea. * Meets 100% est needs * HOB over 30 degrees/ water flush per MD ADDITIONAL RECOMMENDATIONS: * Per SNF: HT=63" GP=017 lbs (Vs EMR wt of 160.6lbs) -> obtain re-calibrated bedscale wt * Wound healing: add Nephrovite x 1 + Vit C 250mg QD + Garo 1pkt BID via GT * Monitor renal fxn and lytes, check phos level- now on HD .
--- NOTE | 2019-08-18 11:18 | Hematology/Onc Progress Note ---
Assessment/Plan Assessment/Plan Assessment/recs # Leukocytosis - with multiple infections, VRE UTI --> wbc trend 33-->28-->25->23 --> on abx, linezolid and zosyn--> zosyn --> + blood cultures with coag neg staph likely contaminated --> as per id recs --> has ordered a flow cytometry (with pathology) --> does show increased nK cell activity --> JOURDAN 2 and bcr-abl labs ordered (these are send outs) # Anemia due to chronic disease/kidney disease as well, gi bleed + occult + noted --> was on iron in the past, now on hold --> has been started on epogen --> as per renal care --> egd done and shows gastritis --> on ppi --> egd showed gastritis, colo recently done --> hgb 9-->8.7 # Respiratory failure --> per pulm, s/p trach --> COVID 19 test negative x 2 # Dysphagia s/p gtube with nepro --> per gi # ESRD with r fem julito --> hd as per renal # Dvt ppx scds Appreciate consultation and dw Rn Subjective Constitutional: Denies: no symptoms, chills, fever, malaise, weakness, other HEENT: Denies: no symptoms, eye pain, blurred vision, tearing, double vision, ear pain, ear discharge, nose pain, nose congestion, throat pain, throat swelling, mouth pain, mouth swelling, other Cardiovascular: Denies: no symptoms, chest pain, edema, irregular heart rate, lightheadedness, palpitations, syncope, other Respiratory: Denies: no symptoms, cough, shortness of breath, SOB with excertion, SOB at rest, sputum, wheezing, other Gastrointestinal/Abdominal: Denies: no symptoms, abdomen distended, abdominal pain, black stools, tarry stools, blood in stool, constipated, diarrhea, difficulty swallowing, nausea, poor appetite, poor fluid intake, rectal bleeding , vomiting, other Genitourinary: Denies: no symptoms, burning, discharge, frequency, flank pain, hematuria, incontinence, pain, urgency, other Neurologic/Psychiatric: Denies: no symptoms, anxiety, depressed, emotional problems, headache, numbness, paresthesia, pre-existing deficit, seizure, tingling, tremors, weakness, other Endocrine: Denies: no symptoms, excessive sweating, flushing, intolerance to cold, intolerance to heat, increased hunger, increased thirst, increased urine, unexplained weight gain, unexplained weight loss, other Allergies: Coded Allergies: No Known Allergies (Unverified , 06/10/19) Subjective 08/15 meds noted, no bleeding, hgb 8.8, wbc 28, path flow pending 08/16 flow pending dw pathologist, results pending, wbc 25, hgb 9 08/17 labs reviewed, meds reviewed, meds noted, no night sweats Objective Objective Current Medications Medications (Trade) Dose Ordered Sig/Leonel Route PRN Reason Start Time Stop Time Status Last Admin Dose Admin Acetaminophen (Tylenol) 650 mg Q4H PRN GT Mild Pain / fever 08/09/19 05:30 09/08/19 05:29 Al Hydroxide/Mg Hydroxide (Mylanta) 30 ml FOUR TIMES A DAY PRN GT constipation 08/09/19 06:00 09/08/19 05:29 Ascorbic Acid (Vitamin C) 500 mg DAILY GT 08/09/19 09:00 09/08/19 08:59 08/18/19 09:32 Atorvastatin Calcium (Lipitor) 40 mg BEDTIME GT 08/09/19 21:00 11/07/19 20:59 08/17/19 21:26 Chlorhexidine Gluconate (Felipa-Hex 2%) 1 applic DAILY@2000 TOPIC 08/15/19 20:00 11/13/19 19:59 08/17/19 21:25 Clonidine HCl (Catapres Tab) 0.1 mg Q4H PRN GT SBP>150 08/12/19 10:45 11/10/19 06:44 Dextrose (Dextrose 50%) 25 ml Q30M PRN IV Hypoglycemia 08/09/19 07:30 11/07/19 07:29 Dextrose (Dextrose 50%) 50 ml Q30M PRN IV Hypoglycemia 08/09/19 07:30 11/07/19 07:29 Epoetin Andreas (Epoetin Andreas-EPBX(NON ESRD)) 8,000 unit MON-WED-WED SUBQ 08/09/19 21:00 11/07/19 20:59 08/16/19 20:17 Insulin Aspart (NovoLOG) Q6HR SUBQ 08/10/19 00:00 11/07/19 11:29 08/18/19 05:18 Lansoprazole (Prevacid) 30 mg DAILY GT 08/09/19 09:00 09/08/19 08:59 08/18/19 09:32 Loperamide HCl (Imodium) 2 mg Q4H PRN GT Diarrhea 08/09/19 08:00 09/08/19 07:59 Metoprolol Tartrate (Lopressor) 200 mg Q12HR GT 08/09/19 09:00 11/07/19 08:59 08/18/19 09:32 Minoxidil (Loniten) 5 mg DAILY GT 08/09/19 09:00 11/07/19 08:59 08/18/19 09:32 Multivitamins (Multivitamins W/ Minerals 15ml Liquid) 15 ml DAILY GT 08/09/19 09:00 09/08/19 08:59 08/18/19 09:33 Piperacillin Sod/ Tazobactam Sod 2.25 gm/Sodium Chloride 55 ml @ 110 mls/hr Q8H IV 08/17/19 16:00 08/18/19 23:59 08/18/19 08:00 Vitamin B Complex/ Vit C/Folic Acid (Nephrovite) 1 tab DAILY GT 08/09/19 09:00 09/08/19 08:59 08/18/19 09:32 Vitamin D (Vitamin D) 1,000 intlu DAILY GT 08/09/19 09:00 09/08/19 08:59 08/18/19 09:31 Zinc Oxide (Zinc Oxide) 1 applic BID TOPIC 08/10/19 18:00 11/08/19 17:59 08/18/19 09:34 Last 24 Hour Vital Signs Date Time Temp Pulse Resp B/P (MAP) Pulse Ox O2 Delivery O2 Flow Rate FiO2 08/18/19 09:32 64 127/59 08/18/19 09:32 127/59 08/18/19 08:00 97.7 64 18 127/59 (81) 100 08/18/19 07:38 63 08/18/19 07:05 60 15 25 08/18/19 04:00 Mechanical Ventilator 15.0 08/18/19 04:00 25 08/18/19 04:00 97.7 61 20 127/58 (81) 100 08/18/19 03:28 61 08/18/19 02:48 70 16 25 08/18/19 00:00 64 08/18/19 00:00 97.5 64 20 142/71 (94) 100 08/18/19 00:00 Mechanical Ventilator 15.0 08/17/19 22:58 65 15 25 08/17/19 21:26 69 132/55 08/17/19 20:00 25 08/17/19 20:00 97.2 69 20 132/55 (80) 100 08/17/19 20:00 Mechanical Ventilator 15.0 08/17/19 19:43 73 08/17/19 19:21 71 16 25 08/17/19 16:08 96.6 63 20 133/57 (82) 100 08/17/19 16:07 25 08/17/19 16:00 62 08/17/19 16:00 Mechanical Ventilator 15.0 08/17/19 15:30 63 15 25 08/17/19 12:00 Mechanical Ventilator 15.0 08/17/19 12:00 25 08/17/19 12:00 60 08/17/19 12:00 97.5 60 16 118/46 (70) 100 08/17/19 11:05 61 16 25 08/17/19 08:20 60 110/42 08/17/19 08:19 134/52 08/17/19 08:00 61 08/17/19 08:00 97.5 60 16 110/42 (64) 100 08/17/19 08:00 25 08/17/19 08:00 Mechanical Ventilator 15.0 08/17/19 06:50 60 15 25 08/17/19 04:00 Mechanical Ventilator 15.0 08/17/19 04:00 25 08/17/19 04:00 97.3 61 17 134/52 (79) 98 08/17/19 03:27 60 08/17/19 03:19 60 15 25 08/17/19 00:00 Mechanical Ventilator 15.0 08/17/19 00:00 97.2 62 17 135/56 (82) 98 08/16/19 23:35 65 08/16/19 22:54 67 15 25 08/16/19 20:16 65 135/66 08/16/19 20:00 97.0 65 17 135/66 (89) 98 08/16/19 20:00 25 08/16/19 20:00 Mechanical Ventilator 15.0 08/16/19 20:00 65 08/16/19 18:41 65 15 25 08/16/19 16:00 25 08/16/19 16:00 97.2 61 17 128/56 (80) 98 08/16/19 16:00 Mechanical Ventilator 15.0 08/16/19 16:00 62 08/16/19 15:30 63 16 25 08/16/19 12:18 25 08/16/19 12:00 97.0 58 18 105/43 (63) 100 08/16/19 12:00 Mechanical Ventilator 15.0 08/16/19 11:30 58 Intake and Output 08/17/19 08/18/19 19:00 07:00 Intake Total 580 ml 560 ml Output Total 200 ml 2250 ml Balance 380 ml -1690 ml Free Water 200 ml 100 ml IV Total 55 ml Tube Feeding 270 ml 405 ml Other 110 ml Output Urine Total 200 ml 250 ml Hemodialysis UF 2000 ml # Bowel Movements 4 2 Labs Test 08/15/19 11:56 08/15/19 18:36 08/15/19 23:25 08/16/19 05:38 POC Whole Blood Glucose 164 MG/DL (74-106) 144 MG/DL (74-106) Test 08/16/19 12:41 08/16/19 18:24 08/16/19 23:41 08/17/19 03:55 POC Whole Blood Glucose 135 MG/DL (74-106) 198 MG/DL (74-106) White Blood Count 25.4 K/UL (4.8-10.8) Red Blood Count 3.36 M/UL (4.70-6.10) Hemoglobin 9.0 G/DL (14.2-18.0) Hematocrit 29.3 % (42.0-52.0) Mean Corpuscular Volume 87 FL (80-99) Mean Corpuscular Hemoglobin 26.8 PG (27.0-31.0) Mean Corpuscular Hemoglobin Concent 30.7 G/DL (32.0-36.0) Red Cell Distribution Width 16.9 % (11.6-14.8) Platelet Count 369 K/UL (150-450) Mean Platelet Volume 5.2 FL (6.5-10.1) Neutrophils (%) (Auto) % (45.0-75.0) Lymphocytes (%) (Auto) % (20.0-45.0) Monocytes (%) (Auto) % (1.0-10.0) Eosinophils (%) (Auto) % (0.0-3.0) Basophils (%) (Auto) % (0.0-2.0) Differential Total Cells Counted 100 Neutrophils % (Manual) 76 % (45-75) Lymphocytes % (Manual) 15 % (20-45) Monocytes % (Manual) 6 % (1-10) Eosinophils % (Manual) 3 % (0-3) Basophils % (Manual) 0 % (0-2) Band Neutrophils 0 % (0-8) Platelet Estimate Adequate Platelet Morphology Normal Hypochromasia 2+ Anisocytosis 1+ Sodium Level 138 MMOL/L (136-145) Potassium Level 3.1 MMOL/L (3.5-5.1) Chloride Level 102 MMOL/L (98-107) Carbon Dioxide Level 23 MMOL/L (21-32) Anion Gap 13 mmol/L (5-15) Blood Urea Nitrogen 119 mg/dL (7-18) Creatinine 3.7 MG/DL (0.55-1.30) Estimat Glomerular Filtration Rate 16.0 mL/min (>60) Glucose Level 152 MG/DL (74-106) Calcium Level 8.9 MG/DL (8.5-10.1) Test 08/17/19 04:52 08/17/19 11:20 08/17/19 18:36 08/17/19 23:10 POC Whole Blood Glucose 144 MG/DL (74-106) 130 MG/DL (74-106) 153 MG/DL (74-106) Test 08/18/19 03:25 08/18/19 05:15 White Blood Count 22.7 K/UL (4.8-10.8) Red Blood Count 3.21 M/UL (4.70-6.10) Hemoglobin 8.7 G/DL (14.2-18.0) Hematocrit 27.9 % (42.0-52.0) Mean Corpuscular Volume 87 FL (80-99) Mean Corpuscular Hemoglobin 27.2 PG (27.0-31.0) Mean Corpuscular Hemoglobin Concent 31.4 G/DL (32.0-36.0) Red Cell Distribution Width 17.1 % (11.6-14.8) Platelet Count 305 K/UL (150-450) Mean Platelet Volume 5.2 FL (6.5-10.1) Neutrophils (%) (Auto) % (45.0-75.0) Lymphocytes (%) (Auto) % (20.0-45.0) Monocytes (%) (Auto) % (1.0-10.0) Eosinophils (%) (Auto) % (0.0-3.0) Basophils (%) (Auto) % (0.0-2.0) Differential Total Cells Counted 100 Neutrophils % (Manual) 91 % (45-75) Lymphocytes % (Manual) 4 % (20-45) Monocytes % (Manual) 4 % (1-10) Eosinophils % (Manual) 1 % (0-3) Basophils % (Manual) 0 % (0-2) Band Neutrophils 0 % (0-8) Platelet Estimate Adequate Platelet Morphology Normal Hypochromasia 2+ Anisocytosis 1+ Sodium Level 139 MMOL/L (136-145) Potassium Level 2.8 MMOL/L (3.5-5.1) Chloride Level 103 MMOL/L (98-107) Carbon Dioxide Level 25 MMOL/L (21-32) Anion Gap 11 mmol/L (5-15) Blood Urea Nitrogen 71 mg/dL (7-18) Creatinine 2.5 MG/DL (0.55-1.30) Estimat Glomerular Filtration Rate 25.1 mL/min (>60) Glucose Level 140 MG/DL (74-106) Calcium Level 8.9 MG/DL (8.5-10.1) Phosphorus Level 1.7 MG/DL (2.5-4.9) Magnesium Level 3.1 MG/DL (1.8-2.4) Height (Feet): 6 Height (Inches): 7 Weight (Pounds): 166 Objective Physical Exam General Appearance: nad, Chronically Ill Head: normocephalic Eyes: right eye PERRL - Will not open left eye ENT: moist mucus membranes Neck: other - submandibular mass R, fairly rigid with resistance to rotation to L, tracheotomy Respiratory: decreased breath sounds, crackles, other - pacemaker Cardiovascular: regular rate, rhythm, edema - anasarca Gastrointestinal: non tender, distended, other - G tube Genitourinary: other Musculoskeletal: other - Contractures all extremities Neurologic: sensory intact, motor weakness, responsive Psychiatric: other Skin: Decubitus/Ulcer - Stage III right elbow, stage III left elbow, stage II sacrum, stage III scrotum, warm/dry Fitz Campos MD Aug 18, 2019 11:18
--- NOTE | 2019-08-18 11:33 | Nephrology Progress Note ---
Assessment/Plan Plan Sepsis - IV Abx Skin wounds - wound care Pre ESRD - HD now TTS. Subjective Subjective Obtunded Objective Objective Last 24 Hour Vital Signs Date Time Temp Pulse Resp B/P (MAP) Pulse Ox O2 Delivery O2 Flow Rate FiO2 08/18/19 09:32 64 127/59 08/18/19 09:32 127/59 08/18/19 08:00 97.7 64 18 127/59 (81) 100 08/18/19 08:00 Mechanical Ventilator 15.0 08/18/19 08:00 25 08/18/19 07:38 63 08/18/19 07:05 60 15 25 08/18/19 04:00 Mechanical Ventilator 15.0 08/18/19 04:00 25 08/18/19 04:00 97.7 61 20 127/58 (81) 100 08/18/19 03:28 61 08/18/19 02:48 70 16 25 08/18/19 00:00 64 08/18/19 00:00 97.5 64 20 142/71 (94) 100 08/18/19 00:00 Mechanical Ventilator 15.0 08/17/19 22:58 65 15 25 08/17/19 21:26 69 132/55 08/17/19 20:00 25 08/17/19 20:00 97.2 69 20 132/55 (80) 100 08/17/19 20:00 Mechanical Ventilator 15.0 08/17/19 19:43 73 08/17/19 19:21 71 16 25 08/17/19 16:08 96.6 63 20 133/57 (82) 100 08/17/19 16:07 25 08/17/19 16:00 62 08/17/19 16:00 Mechanical Ventilator 15.0 08/17/19 15:30 63 15 25 08/17/19 12:00 Mechanical Ventilator 15.0 08/17/19 12:00 25 08/17/19 12:00 60 08/17/19 12:00 97.5 60 16 118/46 (70) 100 Intake and Output 08/17/19 08/18/19 19:00 07:00 Intake Total 580 ml 560 ml Output Total 200 ml 2250 ml Balance 380 ml -1690 ml Free Water 200 ml 100 ml IV Total 55 ml Tube Feeding 270 ml 405 ml Other 110 ml Output Urine Total 200 ml 250 ml Hemodialysis UF 2000 ml # Bowel Movements 4 2 Laboratory Tests 08/17/19 18:36: POC Whole Blood Glucose [Pending] 08/17/19 23:10: POC Whole Blood Glucose 153H 08/18/19 03:25: White Blood Count 22.7*H, Red Blood Count 3.21L, Hemoglobin 8.7L, Hematocrit 27.9L, Mean Corpuscular Volume 87, Mean Corpuscular Hemoglobin 27.2, Mean Corpuscular Hemoglobin Concent 31.4L, Red Cell Distribution Width 17.1H, Platelet Count 305, Mean Platelet Volume 5.2L, Neutrophils (%) (Auto) , Lymphocytes (%) (Auto) , Monocytes (%) (Auto) , Eosinophils (%) (Auto) , Basophils (%) (Auto) , Differential Total Cells Counted 100, Neutrophils % ( Manual) 91H, Lymphocytes % (Manual) 4L, Monocytes % (Manual) 4, Eosinophils % ( Manual) 1, Basophils % (Manual) 0, Band Neutrophils 0, Platelet Estimate Adequate, Platelet Morphology Normal, Hypochromasia 2+, Anisocytosis 1+, Sodium Level 139, Potassium Level 2.8L, Chloride Level 103, Carbon Dioxide Level 25, Anion Gap 11, Blood Urea Nitrogen 71H, Creatinine 2.5H, Estimat Glomerular Filtration Rate 25.1, Glucose Level 140H, Calcium Level 8.9, Phosphorus Level 1.7L, Magnesium Level 3.1H 08/18/19 05:15: POC Whole Blood Glucose [Pending] Height (Feet): 6 Height (Inches): 7 Weight (Pounds): 166 Objective CV RR Trach clean Lungs CTA Abd SNT. BS + E No CCE Erica Pichardo MD Aug 18, 2019 11:33
--- NOTE | 2019-08-18 11:40 | Diagnostic Imaging Report ---
Indication: Abdominal Technique: Supine view of the abdomen Comparison: CT scan 08/17/2019 Findings: Again demonstrated is massive distention of the sigmoid colon. Previously ingested enteric contrast is seen within the transverse colon and splenic flexure. Right femoral dialysis catheter is again noted. Pacemaker, gastrostomy again noted. Impression: Massive distention of the sigmoid, probably unchanged from recent CT scan. Previously thought to be secondary to 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 volvulus. Other findings as noted
[2019-08-18 12:00] VITALS: BP 104/41
--- NOTE | 2019-08-18 12:00 | NUR ---
NURSE NOTES: Wound care nurse Ludmila performed wound care at bedside.
--- NOTE | 2019-08-18 12:50 | NUR ---
CASE MANAGEMENT: REVIEW 08/18/2019 SI;SEPSIS. S/P Right femoral temporary hemodialysis catheter insertion 08/14/2019 VS: T 97.7 HR 64 RR 18 B/P 127/59 SATS 100% ON MECH VENT FIO2 25 LABS: WBC 22.7 K 2.8 BUN 71 CR 2.5 GLU 140 PHOS 1.7 MG 3.1 HEP PANEL PENDING IS:LIPITOR GT QD MINOXIDIL GT QD LOPRESSOR GT Q12H INSULIN ASPART SUBQ AC/HS ZOSYN IV Q8H SDU PLAN OF CARE: monitor renal function: HD CXR KUB
--- NOTE | 2019-08-18 14:32 | NUR ---
DISCHARGE PLANNING: NOTE PER MD PATIENT POSSIBLY WILL BE DISCHARGED TO SNF W/ HD [facility] CANNOT ACCOMMODATE THIS PT ON HD REFERRALS SENT TO: [facility] [place] [phone] PH / FAX [phone] RAVEN RAMOS [phone] PH / FAX [phone] [facility] [phone] PH / FAX [phone] GILBERTO CONV [phone]/F [phone] [facility] [phone]/F: [phone]
--- NOTE | 2019-08-18 15:00 | NUR ---
NURSE NOTES: recvd order from Dr Urias to insert rectal tube.
[2019-08-18 16:00] VITALS: BP 137/59
--- NOTE | 2019-08-18 16:53 | NUR ---
NURSE NOTES:WOUND CARE FOLLOW-UP NOTES: Generalized edemae noted.Penis and Scrotum are edematous and grossly enlarged. Full thickness ulcer at junction of Shaft of penis and dorsal Scrotum. Base of wound is 100% slough. Erythematous Margins. Small amt purulent exudate noted.Full thickness ulcer noted underside of Scrotum. Base of wound is 90% slough , 10% radha. Small amt sanguineous exudate noted.Weeping has resolved.DTPI L Buttocks (L07cm x (W09cm. Base of wound is purple with marginal erythema. Scattered areas of hyperpigmentation noted to Sacrum.. Darker skin tone without induration/fluctuance or erythema noted to R and L ischial tuberosities. Full thickness Pressure injury R elbow(L)1.5cm x (W)1.3cm. 100% slough at base of wound. Borders are macerated. Small amt perez exudate noted. No odor noted. Wound Tx are effective and continued as ordered. All wound prevention protocols continued as care-planned.Pt has an APM/Deb Mattress overlay on his bed and is being positioned with pillows as per tolerance and within protocols. Both heels floated off mattress.
--- NOTE | 2019-08-18 18:20 | NUR ---
NURSE NOTES: Oral care and suctioning performed as needed
--- NOTE | 2019-08-18 19:10 | NUR ---
NURSE NOTES: received pt from Mercy DAVEY., pt is resting on the bed, and obtunded. trach in place, no Respiratory distress noted. O2sat is at 99%. no active bleeding noted. pt is showing V-paced. Gtube site intact, clean and patent. rectal tube in place. foely cath is intact, clean, and draining well with gravity. right wrist 22G intact, clean, and patent as well. bed at the lowest position, alarmed, and locked. call light within reach. will continue to monitor pt wit plan of care.
--- NOTE | 2019-08-18 19:26 | NUR ---
NURSE NOTES: notified Dr. Ramirez regarding K 2.8 , mag 3.1 and phos 1.7. order received. noted, and will carry on.
[2019-08-18 20:00] VITALS: BP 139/66
[2019-08-18] MEDS: Atorvastatin 20mg tab GT SCH (20:40)
[2019-08-18] MEDS: Dyna-Hex 2% Top Sol 2oz TOPIC SCH (20:40)
[2019-08-18] MEDS: Epoetin Alfa-EPBX(ESRD on dialysis)10,000 unit/ml vial SUBQ SCH (20:43)
--- NOTE | 2019-08-18 22:17 | General Progress Note ---
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, doubt volvulus - Anemia - Black stools, but patient on po Iron - stool OB (+) - EGD --> gastritis, Colonoscopy --> not planned since done recently - Renal failure - Sepsis / leukocytosis - Anasarca - resp failure, trach - dysphagia, GT - encephalopathy, contracted - loose BM, C Diff (-) x 1 - poor px Recommendations - continue TF - Iron panel noted - PPI - abx - supportive care Subjective Allergies: Coded Allergies: No Known Allergies (Unverified , 06/10/19) Subjective Above noted NAD tolerating feeds loose BM KUB noted Objective Last 24 Hour Vital Signs Date Time Temp Pulse Resp B/P (MAP) Pulse Ox O2 Delivery O2 Flow Rate FiO2 08/18/19 20:50 66 128/60 08/18/19 20:00 97.7 65 18 139/66 (90) 100 08/18/19 20:00 Mechanical Ventilator 15.0 08/18/19 20:00 59 08/18/19 20:00 25 08/18/19 18:45 56 16 25 08/18/19 16:00 Mechanical Ventilator 15.0 08/18/19 16:00 97.3 60 18 137/59 (85) 98 08/18/19 16:00 60 08/18/19 16:00 25 08/18/19 15:05 58 16 25 08/18/19 12:00 25 08/18/19 12:00 97.5 61 18 104/41 (62) 100 08/18/19 12:00 60 08/18/19 12:00 Mechanical Ventilator 15.0 08/18/19 11:05 60 15 25 08/18/19 09:32 64 127/59 08/18/19 09:32 127/59 08/18/19 08:00 97.7 64 18 127/59 (81) 100 08/18/19 08:00 Mechanical Ventilator 15.0 08/18/19 08:00 25 08/18/19 07:38 63 08/18/19 07:05 60 15 25 08/18/19 04:00 Mechanical Ventilator 15.0 08/18/19 04:00 25 08/18/19 04:00 97.7 61 20 127/58 (81) 100 08/18/19 03:28 61 08/18/19 02:48 70 16 25 08/18/19 00:00 64 08/18/19 00:00 97.5 64 20 142/71 (94) 100 08/18/19 00:00 Mechanical Ventilator 15.0 08/17/19 22:58 65 15 25 Intake and Output 08/17/19 08/18/19 19:00 07:00 Intake Total 580 ml 560 ml Output Total 200 ml 2250 ml Balance 380 ml -1690 ml Free Water 200 ml 100 ml IV Total 55 ml Tube Feeding 270 ml 405 ml Other 110 ml Output Urine Total 200 ml 250 ml Hemodialysis UF 2000 ml # Bowel Movements 4 2 Laboratory Tests 08/17/19 23:10: POC Whole Blood Glucose 153H 08/18/19 03:25: White Blood Count 22.7*H, Red Blood Count 3.21L, Hemoglobin 8.7L, Hematocrit 27.9L, Mean Corpuscular Volume 87, Mean Corpuscular Hemoglobin 27.2, Mean Corpuscular Hemoglobin Concent 31.4L, Red Cell Distribution Width 17.1H, Platelet Count 305, Mean Platelet Volume 5.2L, Neutrophils (%) (Auto) , Lymphocytes (%) (Auto) , Monocytes (%) (Auto) , Eosinophils (%) (Auto) , Basophils (%) (Auto) , Differential Total Cells Counted 100, Neutrophils % ( Manual) 91H, Lymphocytes % (Manual) 4L, Monocytes % (Manual) 4, Eosinophils % ( Manual) 1, Basophils % (Manual) 0, Band Neutrophils 0, Platelet Estimate Adequate, Platelet Morphology Normal, Hypochromasia 2+, Anisocytosis 1+, Sodium Level 139, Potassium Level 2.8L, Chloride Level 103, Carbon Dioxide Level 25, Anion Gap 11, Blood Urea Nitrogen 71H, Creatinine 2.5H, Estimat Glomerular Filtration Rate 25.1, Glucose Level 140H, Calcium Level 8.9, Phosphorus Level 1.7L, Magnesium Level 3.1H 08/18/19 05:15: POC Whole Blood Glucose [Pending] 08/18/19 12:50: POC Whole Blood Glucose 143H 08/18/19 17:35: BCR/abl Gene Rearrange (PCR), Quant [Pending] 08/18/19 17:43: POC Whole Blood Glucose 170H Height (Feet): 6 Height (Inches): 7 Weight (Pounds): 166 Objective Debilitated AA man NCAT (+) trach coarse BS RR abd distended, anasarca, (+) GT ext (+) edema contracted Ronny Mustafa MD Aug 18, 2019 22:17
[2019-08-19] VITALS: BP 135/61
[2019-08-19 04:00] VITALS: BP 128/60
--- NOTE | 2019-08-19 04:00 | NUR ---
NURSE NOTES: cleaned pt , oral care given, stable VSS. call light within reach.
[2019-08-19] MEDS: NovoLOG Insulin Flexpen SUBQ SCH ×4 (05:19→23:16)
[2019-08-19] MEDS ORDERED: Heparin Sod 1000 units/ml 10ml IV SCH (06:00)
[2019-08-19] MEDS ORDERED: Heparin 1000 units/ml 1ml Vial INJ SCH (06:00)
--- NOTE | 2019-08-19 06:28 | General Progress Note ---
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, doubt volvulus - Anemia - Black stools, but patient on po Iron - stool OB (+) - EGD --> gastritis, Colonoscopy --> not planned since done recently - Renal failure - Sepsis / leukocytosis - Anasarca - resp failure, trach - dysphagia, GT - encephalopathy, contracted - loose BM, C Diff (-) x 1 - poor px Recommendations - continue TF - Iron panel noted - PPI - abx - supportive care -repeat cbc- -monitor for K and replace as needed Subjective ROS Limited/Unobtainable: No Allergies: Coded Allergies: No Known Allergies (Unverified , 06/10/19) Objective Last 24 Hour Vital Signs Date Time Temp Pulse Resp B/P (MAP) Pulse Ox O2 Delivery O2 Flow Rate FiO2 08/19/19 04:00 25 08/19/19 04:00 97.4 72 18 128/60 (82) 100 08/19/19 04:00 Mechanical Ventilator 15.0 08/19/19 03:43 68 08/19/19 02:37 65 19 25 08/19/19 00:00 97.7 64 18 135/61 (85) 100 08/19/19 00:00 Mechanical Ventilator 15.0 08/18/19 23:42 63 08/18/19 22:35 60 19 25 08/18/19 20:50 66 128/60 08/18/19 20:00 97.7 65 18 139/66 (90) 100 08/18/19 20:00 Mechanical Ventilator 15.0 08/18/19 20:00 59 08/18/19 20:00 25 08/18/19 18:45 56 16 25 08/18/19 16:00 Mechanical Ventilator 15.0 08/18/19 16:00 97.3 60 18 137/59 (85) 98 08/18/19 16:00 60 08/18/19 16:00 25 08/18/19 15:05 58 16 25 08/18/19 12:00 25 08/18/19 12:00 97.5 61 18 104/41 (62) 100 08/18/19 12:00 60 08/18/19 12:00 Mechanical Ventilator 15.0 08/18/19 11:05 60 15 25 08/18/19 09:32 64 127/59 08/18/19 09:32 127/59 08/18/19 08:00 97.7 64 18 127/59 (81) 100 08/18/19 08:00 Mechanical Ventilator 15.0 08/18/19 08:00 25 08/18/19 07:38 63 08/18/19 07:05 60 15 25 Intake and Output 08/18/19 08/19/19 19:00 07:00 Intake Total 530 ml 640 ml Output Total 350 ml 130 ml Balance 180 ml 510 ml Free Water 100 ml 90 ml IV Total 25 ml 55 ml Tube Feeding 405 ml 495 ml Output Urine Total 350 ml 100 ml Stool Total 30 ml # Bowel Movements 4 2 Laboratory Tests 08/18/19 12:50: POC Whole Blood Glucose 143H 08/18/19 17:35: BCR/abl Gene Rearrange (PCR), Quant [Pending] 08/18/19 17:43: POC Whole Blood Glucose 170H 08/18/19 23:19: POC Whole Blood Glucose [Pending] 08/19/19 05:16: POC Whole Blood Glucose 177H Height (Feet): 6 Height (Inches): 7 Weight (Pounds): 166 General Appearance: no apparent distress EENT: normal ENT inspection Neck: supple Cardiovascular: normal rate Respiratory/Chest: decreased breath sounds Abdomen: hypoactive bowel sounds, decreased bowel sounds, distended Extremities: non-tender Deon Landry MD Aug 19, 2019 06:28
[2019-08-19 07:12] LABS: HEMATOCRIT 27.2 % (42.0-52.0); HEMOGLOBIN 8.5 G/DL (14.2-18.0); MEAN CORPUSCULAR VOLUME 87 FL (80-99); PLATELET COUNT 285 K/UL (150-450); RED BLOOD COUNT 3.13 M/UL (4.70-6.10); RED CELL DISTRIBUTION WIDTH 17.4 % (11.6-14.8); WHITE BLOOD COUNT 20.6 K/UL (4.8-10.8)
--- NOTE | 2019-08-19 07:12 | NUR ---
HAND-OFF: Report given to Severiano DAVEY., pt is stable condition, endorsed plan of care .
--- NOTE | 2019-08-19 07:22 | NUR ---
NURSE NOTES: Received report from Ana Davis RN. Patient in bed resting, no active s/s cardiac, respiratory distress noticed at this time. Patient V-paced with HR 72, Obtundent, GT feeding on hole per order [id number]. Patient trach to vent Portex 8 AC 15, TV 450 Fio2 25%, PEEP 5 O2 sat 100% at this time. Rectal tube running well to gravity at this time, Avalos Catheter draining well to gravity at this time. IV on right wrist 22G, asymptomatic, patent, intact. Endorsed HD schedule for today. Generalized edema observed. Bed in lowest position and locked, side rails upx3, call light within reach, bed alarm on,Will continue to monitor.
[2019-08-19 07:53] LABS: ALANINE AMINOTRANSFERASE 18 U/L (12-78); ALBUMIN 1.4 G/DL (3.4-5.0); ALBUMIN/GLOBULIN RATIO 0.2 (1.0-2.7); ALKALINE PHOSPHATASE 196 U/L (46-116); ANION GAP 12 mmol/L (5-15); ASPARTATE AMINO TRANSFERASE 25 U/L (15-37); BILIRUBIN,TOTAL 0.4 MG/DL (0.2-1.0); BLOOD UREA NITROGEN 77 mg/dL (7-18); CALCIUM 8.7 MG/DL (8.5-10.1); CARBON DIOXIDE 24 MMOL/L (21-32); CHLORIDE 102 MMOL/L (98-107); CREATININE 3.1 MG/DL (0.55-1.30); POTASSIUM 2.8 MMOL/L (3.5-5.1); SODIUM 137 MMOL/L (136-145)
[2019-08-19 08:00] VITALS: BP 125/52
[2019-08-19] MEDS: Nephrovite tab (Rena-Vite) GT SCH (08:14)
[2019-08-19] MEDS: Vitamin D 1000 IU Tab GT SCH (08:14)
[2019-08-19] MEDS: Zinc Oxide Oint 2oz TOPIC SCH ×2 (08:15→17:39)
[2019-08-19] MEDS: Multivitamins W/Minerals 15 ML UDC GT SCH (08:15)
[2019-08-19] MEDS: Ascorbic Acid 500mg tab GT SCH (08:15)
[2019-08-19] MEDS: Piperacillin/Tazobactam 2.25 GM in NS 55 ML IV SCH ×3 (08:17→23:15)
[2019-08-19] MEDS: Minoxidil 2.5mg tab GT SCH (08:18)
[2019-08-19] MEDS: Metoprolol Tartrate 100mg tab GT SCH ×2 (08:18→21:42)
--- NOTE | 2019-08-19 09:08 | Diagnostic Imaging Report ---
EXAM: XR Chest, 1 View CLINICAL HISTORY: F/U TECHNIQUE: Frontal view of the chest. COMPARISON: Chest x-ray 08/08/[address] chest 08/17/19 FINDINGS: Lungs: Bilateral airspace opacities slightly improved in the left upper to midlung. Similar right lung opacities. Pleural space: Similar pleural effusions. No pneumothorax. Heart: Cardiomegaly. Mediastinum: Unremarkable. Bones/joints: Unremarkable. Tubes, lines and devices: Stable tracheostomy tube. Cardiac pacemaker. IMPRESSION: 1. Bilateral airspace opacities, slightly improved in the left upper to midlung. Similar right lung opacities. 2. Similar pleural effusions.
--- NOTE | 2019-08-19 09:21 | Diagnostic Imaging Report ---
EXAM: XR Abdomen, 1 Views CLINICAL HISTORY: Pain TECHNIQUE: Frontal view of the abdomen/pelvis. COMPARISON: Abdomen film 08/18/[address] abdomen and pelvis 08/17/19 FINDINGS: Gastrointestinal tract: Previously seen dilated bowel in the mid abdomen is now to the right upper quadrant, similar to prior CT. Gassy distended loop of transverse colon, slightly decompressed. Bones/joints: Unremarkable. Tubes, lines and devices: Percutaneous gastrostomy tube. IMPRESSION: 1. Previously seen dilated bowel in the mid abdomen is now to the right upper quadrant, similar to prior CT. Presumed sigmoid volvulus 2. Gassy distended loop of transverse colon, slightly decompressed. <MYCVCSECTION> Communications: 08/19/19 09:25 Verify Receipt with Nurse Verified receipt with SDU TAMICA العلي on 08/18 09:24 (-07:00)
--- NOTE | 2019-08-19 10:11 | General Progress Note ---
Assessment/Plan Assessment/Plan: IMPRESSION: 1. anemia. 2. GI bleed. 3. Leukocytosis. 4. Probable sepsis. + BCX 5. Acute on chronic renal failure. 6. Hyponatremia. 7. Severe protein-calorie malnutrition. 8. Significantly elevated C-reactive protein concerning for infectious etiology. 9. Tracheostomy, G-tube. 10. Ventilator dependence. 11. anasarca with bilateral pleural effusion 12. 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 PLAN care noted on vent surgical follow up monitor sodium rate control HD monitor renal function: HD iv antibiotics sears CT noted multiple + cultures care noted and reviewed remains ill impression, plan, and exam edited and reviewed in detail care discussed with RN Subjective Allergies: Coded Allergies: No Known Allergies (Unverified , 06/10/19) Subjective remains ill on vent needs HD weekend events noted Objective Last 24 Hour Vital Signs Date Time Temp Pulse Resp B/P (MAP) Pulse Ox O2 Delivery O2 Flow Rate FiO2 08/19/19 08:18 75 128/60 08/19/19 08:18 128/60 08/19/19 08:00 Mechanical Ventilator Mechanical Ventilator 08/19/19 08:00 97.9 71 20 125/52 (76) 100 08/19/19 08:00 25 08/19/19 07:29 75 19 25 08/19/19 04:00 25 08/19/19 04:00 97.4 72 18 128/60 (82) 100 08/19/19 04:00 Mechanical Ventilator 15.0 08/19/19 03:43 68 08/19/19 02:37 65 19 25 08/19/19 00:00 97.7 64 18 135/61 (85) 100 08/19/19 00:00 Mechanical Ventilator 15.0 08/18/19 23:42 63 08/18/19 22:35 60 19 25 08/18/19 20:50 66 128/60 08/18/19 20:00 97.7 65 18 139/66 (90) 100 08/18/19 20:00 Mechanical Ventilator 15.0 08/18/19 20:00 59 08/18/19 20:00 25 08/18/19 18:45 56 16 25 08/18/19 16:00 Mechanical Ventilator 15.0 08/18/19 16:00 97.3 60 18 137/59 (85) 98 08/18/19 16:00 60 08/18/19 16:00 25 08/18/19 15:05 58 16 25 08/18/19 12:00 25 08/18/19 12:00 97.5 61 18 104/41 (62) 100 08/18/19 12:00 60 08/18/19 12:00 Mechanical Ventilator 15.0 08/18/19 11:05 60 15 25 Intake and Output 08/18/19 08/19/19 19:00 07:00 Intake Total 530 ml 640 ml Output Total 350 ml 130 ml Balance 180 ml 510 ml Free Water 100 ml 90 ml IV Total 25 ml 55 ml Tube Feeding 405 ml 495 ml Output Urine Total 350 ml 100 ml Stool Total 30 ml # Bowel Movements 4 2 Laboratory Tests 08/18/19 12:50: POC Whole Blood Glucose 143H 08/18/19 17:35: BCR/abl Gene Rearrange (PCR), Quant [Pending] 08/18/19 17:43: POC Whole Blood Glucose 170H 08/18/19 23:19: POC Whole Blood Glucose [Pending] 08/19/19 04:55: White Blood Count 20.6H, Red Blood Count 3.13L, Hemoglobin 8.5L, Hematocrit 27.2L, Mean Corpuscular Volume 87, Mean Corpuscular Hemoglobin 27.3, Mean Corpuscular Hemoglobin Concent 31.4L, Red Cell Distribution Width 17.4H, Platelet Count 285, Mean Platelet Volume 5.2L, Neutrophils (%) (Auto) , Lymphocytes (%) (Auto) , Monocytes (%) (Auto) , Eosinophils (%) (Auto) , Basophils (%) (Auto) , Differential Total Cells Counted 100, Neutrophils % ( Manual) 78H, Lymphocytes % (Manual) 10L, Monocytes % (Manual) 5, Eosinophils % ( Manual) 7H, Basophils % (Manual) 0, Band Neutrophils 0, Platelet Estimate Adequate, Platelet Morphology Normal, Hypochromasia 1+, Anisocytosis 1+, Sodium Level 137, Potassium Level 2.8L, Chloride Level 102, Carbon Dioxide Level 24, Anion Gap 12, Blood Urea Nitrogen 77H, Creatinine 3.1H, Estimat Glomerular Filtration Rate 19.6, Glucose Level 184H, Calcium Level 8.7, Total Bilirubin 0.4 , Aspartate Amino Transf (AST/SGOT) 25, Alanine Aminotransferase (ALT/SGPT) 18, Alkaline Phosphatase 196H, Total Protein 7.3, Albumin 1.4L, Globulin 5.9, Albumin/Globulin Ratio 0.2L 08/19/19 05:16: POC Whole Blood Glucose 177H Height (Feet): 6 Height (Inches): 7 Weight (Pounds): 166 Objective GENERAL: Ill-appearing male, chronically debilitated. HEENT: Tracheostomy in midline. Questionable fullness in the submandibular region. LUNGS: Coarse breath sounds. reduced breath sounds CARDIAC: S1, S2. Regular rate and rhythm. ABDOMEN: Soft. G-tube. EXTREMITIES: With noted edema. NEUROLOGICAL: Poorly responsive, weak diffusely. Kain Ramirez MD Aug 19, 2019 10:11
--- NOTE | 2019-08-19 10:25 | Infectious Diseases Prog Note ---
Assessment/Plan Assessment/Plan antibiotics : zosyn A 1. VRE UTI 2. + blood cultures with coag neg staph likely contaminated 3. respiratory failure 4. leucocytosis improving 5. group G streptococcus, providencia, pseudomonas, serratia pneumonia COVID 19 test negative x 2 6. renal failure on HD P 1. continue zosyn 3 more days 2. will follow up cultures 3. stool for c.diff Subjective ROS Limited/Unobtainable: Yes Allergies: Coded Allergies: No Known Allergies (Unverified , 06/10/19) Objective Last 24 Hour Vital Signs Date Time Temp Pulse Resp B/P (MAP) Pulse Ox O2 Delivery O2 Flow Rate FiO2 08/19/19 08:18 75 128/60 08/19/19 08:18 128/60 08/19/19 08:00 Mechanical Ventilator Mechanical Ventilator 08/19/19 08:00 71 08/19/19 08:00 97.9 71 20 125/52 (76) 100 08/19/19 08:00 25 08/19/19 07:29 75 19 25 08/19/19 04:00 25 08/19/19 04:00 97.4 72 18 128/60 (82) 100 08/19/19 04:00 Mechanical Ventilator 15.0 08/19/19 03:43 68 08/19/19 02:37 65 19 25 08/19/19 00:00 97.7 64 18 135/61 (85) 100 08/19/19 00:00 Mechanical Ventilator 15.0 08/18/19 23:42 63 08/18/19 22:35 60 19 25 08/18/19 20:50 66 128/60 08/18/19 20:00 97.7 65 18 139/66 (90) 100 08/18/19 20:00 Mechanical Ventilator 15.0 08/18/19 20:00 59 08/18/19 20:00 25 08/18/19 18:45 56 16 25 08/18/19 16:00 Mechanical Ventilator 15.0 08/18/19 16:00 97.3 60 18 137/59 (85) 98 08/18/19 16:00 60 08/18/19 16:00 25 08/18/19 15:05 58 16 25 08/18/19 12:00 25 08/18/19 12:00 97.5 61 18 104/41 (62) 100 7/10/20 12:00 60 08/18/19 12:00 Mechanical Ventilator 15.0 08/18/19 11:05 60 15 25 Height (Feet): 6 Height (Inches): 7 Weight (Pounds): 166 HEENT: status post trach Respiratory/Chest: lungs clear Cardiovascular: normal rate, regular rhythm, no gallop/murmur Abdomen: soft, non tender, other - GT Extremities: other - + edema Microbiology Date/Time Source Procedure Growth Status 08/16/19 16:10 Stool Clostridium difficile Toxin Assay - Final Complete Laboratory Tests Test 08/18/19 12:50 08/18/19 17:35 08/18/19 17:43 08/18/19 23:19 POC Whole Blood Glucose 143 MG/DL (74-106) H 170 MG/DL (74-106) H Pending BCR/abl Gene Rearrange (PCR), Quant Pending Test 08/19/19 04:55 08/19/19 05:16 White Blood Count 20.6 K/UL (4.8-10.8) H Red Blood Count 3.13 M/UL (4.70-6.10) L Hemoglobin 8.5 G/DL (14.2-18.0) L Hematocrit 27.2 % (42.0-52.0) L Mean Corpuscular Volume 87 FL (80-99) Mean Corpuscular Hemoglobin 27.3 PG (27.0-31.0) Mean Corpuscular Hemoglobin Concent 31.4 G/DL (32.0-36.0) L Red Cell Distribution Width 17.4 % (11.6-14.8) H Platelet Count 285 K/UL (150-450) Mean Platelet Volume 5.2 FL (6.5-10.1) L Neutrophils (%) (Auto) % (45.0-75.0) Lymphocytes (%) (Auto) % (20.0-45.0) Monocytes (%) (Auto) % (1.0-10.0) Eosinophils (%) (Auto) % (0.0-3.0) Basophils (%) (Auto) % (0.0-2.0) Differential Total Cells Counted 100 Neutrophils % (Manual) 78 % (45-75) H Lymphocytes % (Manual) 10 % (20-45) L Monocytes % (Manual) 5 % (1-10) Eosinophils % (Manual) 7 % (0-3) H Basophils % (Manual) 0 % (0-2) Band Neutrophils 0 % (0-8) Platelet Estimate Adequate Platelet Morphology Normal Hypochromasia 1+ Anisocytosis 1+ Sodium Level 137 MMOL/L (136-145) Potassium Level 2.8 MMOL/L (3.5-5.1) L Chloride Level 102 MMOL/L (98-107) Carbon Dioxide Level 24 MMOL/L (21-32) Anion Gap 12 mmol/L (5-15) Blood Urea Nitrogen 77 mg/dL (7-18) H Creatinine 3.1 MG/DL (0.55-1.30) H Estimat Glomerular Filtration Rate 19.6 mL/min (>60) Glucose Level 184 MG/DL (74-106) H Calcium Level 8.7 MG/DL (8.5-10.1) Total Bilirubin 0.4 MG/DL (0.2-1.0) Aspartate Amino Transf (AST/SGOT) 25 U/L (15-37) Alanine Aminotransferase (ALT/SGPT) 18 U/L (12-78) Alkaline Phosphatase 196 U/L (46-116) H Total Protein 7.3 G/DL (6.4-8.2) Albumin 1.4 G/DL (3.4-5.0) L Globulin 5.9 g/dL Albumin/Globulin Ratio 0.2 (1.0-2.7) L POC Whole Blood Glucose 177 MG/DL (74-106) H Current Medications Medications (Trade) Dose Ordered Sig/Leonel Route PRN Reason Start Time Stop Time Status Last Admin Dose Admin Acetaminophen (Tylenol) 650 mg Q4H PRN GT Mild Pain / fever 08/09/19 05:30 09/08/19 05:29 Al Hydroxide/Mg Hydroxide (Mylanta) 30 ml FOUR TIMES A DAY PRN GT constipation 08/09/19 06:00 09/08/19 05:29 Ascorbic Acid (Vitamin C) 500 mg DAILY GT 08/09/19 09:00 09/08/19 08:59 08/19/19 08:15 Atorvastatin Calcium (Lipitor) 40 mg BEDTIME GT 08/09/19 21:00 11/07/19 20:59 08/18/19 20:40 Chlorhexidine Gluconate (Felipa-Hex 2%) 1 applic DAILY@2000 TOPIC 08/15/19 20:00 11/13/19 19:59 08/18/19 20:40 Clonidine HCl (Catapres Tab) 0.1 mg Q4H PRN GT SBP>150 08/12/19 10:45 11/10/19 06:44 Dextrose (Dextrose 50%) 25 ml Q30M PRN IV Hypoglycemia 08/09/19 07:30 11/07/19 07:29 Dextrose (Dextrose 50%) 50 ml Q30M PRN IV Hypoglycemia 08/09/19 07:30 11/07/19 07:29 Epoetin Andreas (Epoetin Andreas(ESRD on dialysis)) 10,000 unit WED-WED-WED SUBQ 08/18/19 21:00 11/16/19 20:59 08/18/19 20:43 Heparin Sodium (Porcine) (Heparin Sod 1000 units/ml 10ml) 2,000 unit ONCE IV 08/19/19 06:00 08/19/19 23:00 Heparin Sodium (Porcine) (Heparin) 1,000 unit POSTHD INJ 08/19/19 06:00 08/19/19 23:00 Insulin Aspart (NovoLOG) Q6HR SUBQ 08/10/19 00:00 11/07/19 11:29 08/19/19 05:19 Lansoprazole (Prevacid) 30 mg DAILY GT 08/09/19 09:00 09/08/19 08:59 08/19/19 08:15 Loperamide HCl (Imodium) 2 mg Q4H PRN GT Diarrhea 08/09/19 08:00 09/08/19 07:59 Metoprolol Tartrate (Lopressor) 200 mg Q12HR GT 08/09/19 09:00 11/07/19 08:59 08/18/19 20:50 Minoxidil (Loniten) 5 mg DAILY GT 08/09/19 09:00 11/07/19 08:59 08/18/19 09:32 Multivitamins (Multivitamins W/ Minerals 15ml Liquid) 15 ml DAILY GT 08/09/19 09:00 09/08/19 08:59 08/19/19 08:15 Piperacillin Sod/ Tazobactam Sod 2.25 gm/Sodium Chloride 55 ml @ 110 mls/hr Q8H IV 08/17/19 16:00 08/22/19 23:59 08/19/19 08:17 Sodium Chloride 1,000 ml @ 500 mls/hr Q2H PRN IVLG sbp<90 during hd 08/19/19 06:00 08/19/19 23:00 Vitamin B Complex/ Vit C/Folic Acid (Nephrovite) 1 tab DAILY GT 08/09/19 09:00 09/08/19 08:59 08/19/19 08:14 Vitamin D (Vitamin D) 1,000 intlu DAILY GT 08/09/19 09:00 09/08/19 08:59 08/19/19 08:14 Zinc Oxide (Zinc Oxide) 1 applic BID TOPIC 08/10/19 18:00 11/08/19 17:59 08/19/19 08:15 Farnaz Lyle MD Aug 19, 2019 10:25
[2019-08-19 12:00] VITALS: BP 126/66
--- NOTE | 2019-08-19 13:27 | Surgery Progress Note ---
Surgery Progress Note Subjective Procedure Performed Right femoral temporary hemodialysis catheter insertion Additional Comments no acute events labs noted exam stable line okay Objective Last 24 Hour Vital Signs Date Time Temp Pulse Resp B/P (MAP) Pulse Ox O2 Delivery O2 Flow Rate FiO2 08/19/19 11:03 76 21 25 08/19/19 08:18 75 128/60 08/19/19 08:18 128/60 08/19/19 08:00 Mechanical Ventilator Mechanical Ventilator 08/19/19 08:00 71 08/19/19 08:00 97.9 71 20 125/52 (76) 100 08/19/19 08:00 25 08/19/19 07:29 75 19 25 08/19/19 04:00 25 08/19/19 04:00 97.4 72 18 128/60 (82) 100 08/19/19 04:00 Mechanical Ventilator 15.0 08/19/19 03:43 68 08/19/19 02:37 65 19 25 08/19/19 00:00 97.7 64 18 135/61 (85) 100 08/19/19 00:00 Mechanical Ventilator 15.0 08/18/19 23:42 63 08/18/19 22:35 60 19 25 08/18/19 20:50 66 128/60 08/18/19 20:00 97.7 65 18 139/66 (90) 100 08/18/19 20:00 Mechanical Ventilator 15.0 08/18/19 20:00 59 08/18/19 20:00 25 08/18/19 18:45 56 16 25 08/18/19 16:00 Mechanical Ventilator 15.0 08/18/19 16:00 97.3 60 18 137/59 (85) 98 08/18/19 16:00 60 08/18/19 16:00 25 08/18/19 15:05 58 16 25 I&O Intake and Output 08/18/19 08/19/19 19:00 07:00 Intake Total 530 ml 640 ml Output Total 350 ml 130 ml Balance 180 ml 510 ml Free Water 100 ml 90 ml IV Total 25 ml 55 ml Tube Feeding 405 ml 495 ml Output Urine Total 350 ml 100 ml Stool Total 30 ml # Bowel Movements 4 2 Dressing: other Wound: other Drains: other Cardiovascular: RSR Respiratory: decreased breath sounds Abdomen: soft, non-tender, present bowel sounds Extremities: no edema, no tenderness Laboratory Tests Test 08/18/19 17:35 08/18/19 17:43 08/18/19 23:19 08/19/19 04:55 BCR/abl Gene Rearrange (PCR), Quant Pending POC Whole Blood Glucose 170 MG/DL (74-106) H Pending White Blood Count 20.6 K/UL (4.8-10.8) H Red Blood Count 3.13 M/UL (4.70-6.10) L Hemoglobin 8.5 G/DL (14.2-18.0) L Hematocrit 27.2 % (42.0-52.0) L Mean Corpuscular Volume 87 FL (80-99) Mean Corpuscular Hemoglobin 27.3 PG (27.0-31.0) Mean Corpuscular Hemoglobin Concent 31.4 G/DL (32.0-36.0) L Red Cell Distribution Width 17.4 % (11.6-14.8) H Platelet Count 285 K/UL (150-450) Mean Platelet Volume 5.2 FL (6.5-10.1) L Neutrophils (%) (Auto) % (45.0-75.0) Lymphocytes (%) (Auto) % (20.0-45.0) Monocytes (%) (Auto) % (1.0-10.0) Eosinophils (%) (Auto) % (0.0-3.0) Basophils (%) (Auto) % (0.0-2.0) Differential Total Cells Counted 100 Neutrophils % (Manual) 78 % (45-75) H Lymphocytes % (Manual) 10 % (20-45) L Monocytes % (Manual) 5 % (1-10) Eosinophils % (Manual) 7 % (0-3) H Basophils % (Manual) 0 % (0-2) Band Neutrophils 0 % (0-8) Platelet Estimate Adequate Platelet Morphology Normal Hypochromasia 1+ Anisocytosis 1+ Sodium Level 137 MMOL/L (136-145) Potassium Level 2.8 MMOL/L (3.5-5.1) L Chloride Level 102 MMOL/L (98-107) Carbon Dioxide Level 24 MMOL/L (21-32) Anion Gap 12 mmol/L (5-15) Blood Urea Nitrogen 77 mg/dL (7-18) H Creatinine 3.1 MG/DL (0.55-1.30) H Estimat Glomerular Filtration Rate 19.6 mL/min (>60) Glucose Level 184 MG/DL (74-106) H Calcium Level 8.7 MG/DL (8.5-10.1) Total Bilirubin 0.4 MG/DL (0.2-1.0) Aspartate Amino Transf (AST/SGOT) 25 U/L (15-37) Alanine Aminotransferase (ALT/SGPT) 18 U/L (12-78) Alkaline Phosphatase 196 U/L (46-116) H Total Protein 7.3 G/DL (6.4-8.2) Albumin 1.4 G/DL (3.4-5.0) L Globulin 5.9 g/dL Albumin/Globulin Ratio 0.2 (1.0-2.7) L Test 08/19/19 05:16 08/19/19 11:37 POC Whole Blood Glucose 177 MG/DL (74-106) H 161 MG/DL (74-106) H Plan Problems: (1) Anemia (2) Hyponatremia (3) Leukocytosis Assessment & Plan: Tracheostomy, left chest pacemaker are again demonstrated. There is bilateral interstitial and airspace disease and bilateral pleural fluid again demonstrated. This appears more severe than on the prior study. Bilateral interstitial and airspace infiltrates versus edema. Bilateral pleural effusions Leukocytosis, anemia, tachycardia, abnormal labs. Wound evaluated and likely etiology of patient's sepsis. Leukocytosis etiology work-up antibiotics per infectious disease Appreciate nephrology input transfuse with dialysis We will follow with recommendations thank you allowing participation's care plan HD access temp HD discussed with medical teams line okay HD as per renal persistent leukocytosis flow cyto noted (4) Ventilator dependent (5) Right lower lobe pneumonia (6) Hypokalemia (7) Hyperkalemia (8) Anasarca (9) Decubitus skin ulcer Assessment & Plan: pt presented on admission with generalized edemae.Skin assessed under tracheostomy and no areas of concerns noted. GT Insertion is marginally erythematous with small amt slough at stoma. Unstageable Pressure Injury R elbow. Base of wound is 100% yellow slough, Borders are erythematous. Wound oozing small amt haemopurulent exudate.Darker skin tone without elevation in skin temp or erythema periwound. Pt's penis and scrotum are grossly edematous and enlarged and weeping serous exudate from numerous sites both from penis and scrotum. Two small open wounds noted at base of at base of shaft of penis ,and conterras aspect of scrotum. Both wounds oozing large amt sanguineous and serosanguineous exudate. Multiple open wounds with Biofilm at base of each wounds noted to contreras/lateral,inferior and posterior aspects of scrotum. These wounds noted to be oozing moderate amts of serosanguineous exudate. Hypertrophic scar with scattered areas of hyperpigmentation noted to Sacrum. DTPI noted to L Buttocks (L)7cm x (W)9cm. Base of wound is purple and indurated.Darker skin tone without erythema, induration or fluctuance R and L ischial tuberosities. Both heels are boggy with non-blanchable erythema. Tx.Plan: Cleanse wound R elbow with Saline. Apply TheraHoney, Apply Moisture Barrier Paste periwound. Cover with Optifoam drsg.Change Daily and prn. Wash GT site with soap and water.Pat dry. Apply Zinc Oxide Paste to GT site Daily. Leave Open to Air. Apply Zinc Oxide Paste to entire Scrotum, Place ABD pads to R and L lateral, and posterior aspects of scrotum TWICE daily. Apply Cavilon Skin Barrier to malleoli and both Heels. Cover each site with Optifoam drsgs. Change every 7 days and prn. Reposition at least every 2hours or as tolerated. Off-load heels with Pillows. APM/BECCA Mattress overlay. (10) Malnutrition Assessment & Plan: DAILY ESTIMATED NEEDS: Needs based on Renal, critical care, wound/ 61kg 22-28 kcals/kg 8629-8697 total kcals 1-1.25 (increase w/ renal improvement) g protein/kg 61-76 g total protein 20-25 mL/kg 7658-3511 total fluid mLs NUTRITION DIAGNOSIS: * Swallowing difficulty R/T respiratory failure, dysphagia as evidenced by trach/vent dep, PEG dep * Increased kcal/prot needs R/T wound healing as evidenced by admitted w/ multiple pressure injuries per photos, pending eval. CURRENT TF:Nepro @ 45ml/hr x 24 hrs ENTERAL NUTRITION RECOMMENDATIONS: NEPRO to 45ml/hr x 20 hrs to provide 900ml, 1620kcal, 73g prot, 654ml free water * Maintain current TF * HOB over 30 degrees/ water flush per MD ADDITIONAL RECOMMENDATIONS: * Per SNF: HT=63" MO=302 lbs (Vs EMR wt of 165lbs) -> obtain re-calibrated bedscale wt * Wound healing: add Nephrovite x 1 + Vit C 250mg QD add Garo 1pkt BID via GT * Monitor renal fxn and lytes, check phos level (11) Uremia (12) CKD (chronic kidney disease) stage 5, GFR less than 15 ml/min (13) Colon distention Assessment & Plan: discussed with GI likely functional as having lots of loose bm rectal tube kub f/u Marked distention of the sigmoid colon. 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 No evidence of bowel wall thickening or pneumatosis 12 mm focus of contrast enhancement in the right pectineus muscle. While nonspecific in appearance, appearance raises concern for a possible pseudoaneurysm. Ill- defined thickening of the pectus medius muscle could indicate some intramuscular hemorrhage. The above findings were phoned to Dr. Urias at the time of interpretation Large bilateral pleural effusions Hazy pulmonary parenchymal opacities as well as dense consolidative opacities most likely represent pulmonary edema, but could represent pneumonia Evidence of anasarca elsewhere, with generalized edema of the subcutaneous fat Bladder wall thickening, raises concern for cystitis. Avalos catheter in place Colonic diverticulosis. No evidence of diverticulitis. Tracheostomy Pacemaker Gastrostomy Jonathan Urias Aug 19, 2019 13:27
--- NOTE | 2019-08-19 15:26 | NUR ---
NURSE NOTES: Paged Dr. Brito regarding K level today, 2.8, no answer, paged Dr. Ramirez, per MD 40 mEq KCl now and repeat in 4 hour. Order noted, entered, carried out.
[2019-08-19 16:00] VITALS: BP 147/65
--- NOTE | 2019-08-19 17:45 | Nephrology Progress Note ---
Assessment/Plan Problem List: (1) UTI (urinary tract infection) (2) VRE (vancomycin-resistant Enterococci) infection (3) Hyponatremia (4) CKD (chronic kidney disease) stage 5, GFR less than 15 ml/min (5) Malnutrition (6) Anasarca (7) Decubitus skin ulcer (8) Anemia (9) Ventilator dependent (10) Right lower lobe pneumonia Plan HD 08/18 , continue antibiotics Subjective ROS Limited/Unobtainable: Yes Objective Objective Last 24 Hour Vital Signs Date Time Temp Pulse Resp B/P (MAP) Pulse Ox O2 Delivery O2 Flow Rate FiO2 08/19/19 15:16 73 18 25 08/19/19 12:00 98.2 75 18 126/66 (86) 100 08/19/19 12:00 Mechanical Ventilator Mechanical Ventilator 08/19/19 12:00 25 08/19/19 12:00 72 08/19/19 11:03 76 21 25 08/19/19 08:18 75 128/60 08/19/19 08:18 128/60 08/19/19 08:00 Mechanical Ventilator Mechanical Ventilator 08/19/19 08:00 71 08/19/19 08:00 97.9 71 20 125/52 (76) 100 08/19/19 08:00 25 08/19/19 07:29 75 19 25 08/19/19 04:00 25 08/19/19 04:00 97.4 72 18 128/60 (82) 100 08/19/19 04:00 Mechanical Ventilator 15.0 08/19/19 03:43 68 08/19/19 02:37 65 19 25 08/19/19 00:00 97.7 64 18 135/61 (85) 100 08/19/19 00:00 Mechanical Ventilator 15.0 08/18/19 23:42 63 08/18/19 22:35 60 19 25 08/18/19 20:50 66 128/60 08/18/19 20:00 97.7 65 18 139/66 (90) 100 08/18/19 20:00 Mechanical Ventilator 15.0 08/18/19 20:00 59 08/18/19 20:00 25 08/18/19 18:45 56 16 25 Intake and Output 08/18/19 08/19/19 19:00 07:00 Intake Total 530 ml 640 ml Output Total 350 ml 130 ml Balance 180 ml 510 ml Free Water 100 ml 90 ml IV Total 25 ml 55 ml Tube Feeding 405 ml 495 ml Output Urine Total 350 ml 100 ml Stool Total 30 ml # Bowel Movements 4 2 Laboratory Tests 08/18/19 23:19: POC Whole Blood Glucose [Pending] 08/19/19 04:55: White Blood Count 20.6H, Red Blood Count 3.13L, Hemoglobin 8.5L, Hematocrit 27.2L, Mean Corpuscular Volume 87, Mean Corpuscular Hemoglobin 27.3, Mean Corpuscular Hemoglobin Concent 31.4L, Red Cell Distribution Width 17.4H, Platelet Count 285, Mean Platelet Volume 5.2L, Neutrophils (%) (Auto) , Lymphocytes (%) (Auto) , Monocytes (%) (Auto) , Eosinophils (%) (Auto) , Basophils (%) (Auto) , Differential Total Cells Counted 100, Neutrophils % ( Manual) 78H, Lymphocytes % (Manual) 10L, Monocytes % (Manual) 5, Eosinophils % ( Manual) 7H, Basophils % (Manual) 0, Band Neutrophils 0, Platelet Estimate Adequate, Platelet Morphology Normal, Hypochromasia 1+, Anisocytosis 1+, Sodium Level 137, Potassium Level 2.8L, Chloride Level 102, Carbon Dioxide Level 24, Anion Gap 12, Blood Urea Nitrogen 77H, Creatinine 3.1H, Estimat Glomerular Filtration Rate 19.6, Glucose Level 184H, Calcium Level 8.7, Total Bilirubin 0.4 , Aspartate Amino Transf (AST/SGOT) 25, Alanine Aminotransferase (ALT/SGPT) 18, Alkaline Phosphatase 196H, Total Protein 7.3, Albumin 1.4L, Globulin 5.9, Albumin/Globulin Ratio 0.2L 08/19/19 05:16: POC Whole Blood Glucose 177H 08/19/19 11:37: POC Whole Blood Glucose 161H 08/19/19 17:37: POC Whole Blood Glucose 151H Height (Feet): 6 Height (Inches): 7 Weight (Pounds): 166 General Appearance: confused, other - on vent Cardiovascular: regular rhythm Respiratory/Chest: rhonchi - bilaterally Abdomen: soft Extremities: no edema Neurologic: unresponsive Carmelo Frank MD Aug 19, 2019 17:45
--- NOTE | 2019-08-19 19:18 | NUR ---
HAND-OFF: Report given to Ana Davis RN. Endorsed plan of care. Patient receiving HD at this time, HD nurse at the bedside.
--- NOTE | 2019-08-19 19:19 | NUR ---
NURSE NOTES: received pt from Severiano DAVEY., pt is resting on the bed, and obtunded. trach in place, no Respiratory distress noted. O2sat is at 100%. no active bleeding noted. pt is showing V-paced. Gtube site intact, clean and patent. rectal tube in place. foely cath is intact, clean, and draining well with gravity. right wrist 22G intact, clean, and patent as well. pt is getting HD at this moment, and KOBE Matute RN at the bedside. bed at the lowest position, alarmed, and locked. call light within reach. will continue to monitor pt wit plan of care.
[2019-08-19 20:00] VITALS: BP 129/70
[2019-08-19] MEDS: Dyna-Hex 2% Top Sol 2oz TOPIC SCH (20:44)
[2019-08-19] MEDS: Atorvastatin 20mg tab GT SCH (20:45)
[2019-08-20] VITALS: BP 131/47
--- NOTE | 2019-08-20 | NUR ---
NURSE NOTES: oral suctioned, oral care given.no SOB noted. call light within reach.
[2019-08-20 04:00] VITALS: BP 144/59
--- NOTE | 2019-08-20 04:00 | NUR ---
NURSE NOTES: oral suctioned, oral care given.no SOB noted. call light within reach.
--- NOTE | 2019-08-20 04:30 | NUR ---
NURSE NOTES: cleaned pt, oral suctioned, oral care given.provided new gown, new blanket. no SOB noted. call light within reach.
--- NOTE | 2019-08-20 05:00 | NUR ---
NURSE NOTES: oral suctioned, no SOB noted. call light within reach.
[2019-08-20] MEDS: NovoLOG Insulin Flexpen SUBQ SCH ×4 (05:29→23:34)
--- NOTE | 2019-08-20 05:30 | NUR ---
NURSE NOTES: Per Fabrice technical consultant, rejected C.diff due to pt had 2 negative C.diff.
[2019-08-20 06:10] LABS: HEMATOCRIT 26.3 % (42.0-52.0); HEMOGLOBIN 8.2 G/DL (14.2-18.0); MEAN CORPUSCULAR VOLUME 87 FL (80-99); PLATELET COUNT 210 K/UL (150-450); RED BLOOD COUNT 3.04 M/UL (4.70-6.10); RED CELL DISTRIBUTION WIDTH 17.7 % (11.6-14.8); WHITE BLOOD COUNT 21.7 K/UL (4.8-10.8)
[2019-08-20 06:24] LABS: ANION GAP 8 mmol/L (5-15); BLOOD UREA NITROGEN 47 mg/dL (7-18); CALCIUM 8.7 MG/DL (8.5-10.1); CARBON DIOXIDE 29 MMOL/L (21-32); CHLORIDE 104 MMOL/L (98-107); CREATININE 2.3 MG/DL (0.55-1.30); POTASSIUM 3.8 MMOL/L (3.5-5.1); SODIUM 141 MMOL/L (136-145)
--- NOTE | 2019-08-20 07:00 | General Progress Note ---
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, doubt volvulus - Anemia - Black stools, but patient on po Iron - stool OB (+) - EGD --> gastritis, Colonoscopy --> not planned since done recently - Renal failure - Sepsis / leukocytosis - Anasarca - resp failure, trach - dysphagia, GT - encephalopathy, contracted - loose BM, C Diff (-) x 1 - poor px Recommendations - continue TF - Iron panel noted - PPI - abx - supportive care -repeat cbc- -monitor for K and replace as needed Subjective ROS Limited/Unobtainable: No Allergies: Coded Allergies: No Known Allergies (Unverified , 06/10/19) Objective Last 24 Hour Vital Signs Date Time Temp Pulse Resp B/P (MAP) Pulse Ox O2 Delivery O2 Flow Rate FiO2 08/20/19 04:00 Mechanical Ventilator Mechanical Ventilator 08/20/19 04:00 97.9 86 22 144/59 (87) 100 08/20/19 04:00 25 08/20/19 03:50 86 08/20/19 03:30 86 24 24 08/20/19 00:00 Mechanical Ventilator Mechanical Ventilator 08/20/19 00:00 98.8 88 22 131/47 (75) 100 08/19/19 23:53 89 08/19/19 23:30 86 22 24 08/19/19 21:42 89 130/77 08/19/19 20:00 25 08/19/19 20:00 97.3 90 22 129/70 (89) 100 08/19/19 20:00 Mechanical Ventilator Mechanical Ventilator 08/19/19 19:58 95 08/19/19 19:30 91 27 24 08/19/19 16:00 25 08/19/19 16:00 Mechanical Ventilator Mechanical Ventilator 08/19/19 16:00 98.1 74 18 147/65 (92) 100 08/19/19 16:00 76 08/19/19 15:16 73 18 25 08/19/19 12:00 98.2 75 18 126/66 (86) 100 08/19/19 12:00 Mechanical Ventilator Mechanical Ventilator 08/19/19 12:00 25 08/19/19 12:00 72 08/19/19 11:03 76 21 25 08/19/19 08:18 75 128/60 08/19/19 08:18 128/60 08/19/19 08:00 Mechanical Ventilator Mechanical Ventilator 08/19/19 08:00 71 08/19/19 08:00 97.9 71 20 125/52 (76) 100 08/19/19 08:00 25 08/19/19 07:29 75 19 25 Intake and Output 08/19/19 08/20/19 19:00 07:00 Intake Total 605 ml 640 ml Output Total 200 ml 2135 ml Balance 405 ml -1495 ml Free Water 90 ml 90 ml IV Total 110 ml 55 ml Tube Feeding 405 ml 495 ml Output Urine Total 150 ml 100 ml Stool Total 50 ml 35 ml Hemodialysis UF 2000 ml # Bowel Movements 2 Laboratory Tests 08/19/19 11:37: POC Whole Blood Glucose 161H 08/19/19 17:37: POC Whole Blood Glucose 151H 08/19/19 23:12: POC Whole Blood Glucose [Pending] 08/20/19 01:30: Stool Occult Blood [Pending] 08/20/19 05:27: POC Whole Blood Glucose [Pending] 08/20/19 05:45: White Blood Count 21.7H, Red Blood Count 3.04L, Hemoglobin 8.2L, Hematocrit 26.3L, Mean Corpuscular Volume 87, Mean Corpuscular Hemoglobin 27.0, Mean Corpuscular Hemoglobin Concent 31.1L, Red Cell Distribution Width 17.7H, Platelet Count 210, Mean Platelet Volume 5.5L, Neutrophils (%) (Auto) , Lymphocytes (%) (Auto) , Monocytes (%) (Auto) , Eosinophils (%) (Auto) , Basophils (%) (Auto) , Neutrophils % (Manual) [Pending], Lymphocytes % (Manual) [Pending], Platelet Estimate [Pending], Platelet Morphology [Pending], Sodium Level 141, Potassium Level 3.8, Chloride Level 104, Carbon Dioxide Level 29, Anion Gap 8, Blood Urea Nitrogen 47H, Creatinine 2.3H, Estimat Glomerular Filtration Rate 27.6, Glucose Level 222H, Calcium Level 8.7 Height (Feet): 6 Height (Inches): 7 Weight (Pounds): 166 General Appearance: no apparent distress EENT: normal ENT inspection Neck: supple Cardiovascular: normal rate Respiratory/Chest: decreased breath sounds Abdomen: normal bowel sounds, non tender, soft Extremities: non-tender Deon Landry MD Aug 20, 2019 07:00
--- NOTE | 2019-08-20 07:05 | NUR ---
HAND-OFF: Report given to Severiano DAVEY.., pt is stble condition, endorsed plan of care. no active bleeding noted.
--- NOTE | 2019-08-20 07:26 | NUR ---
NURSE NOTES: Received report from Ana Davis RN. Patient in bed resting, no active s/s cardiac, respiratory distress noticed at this time, Patient obtunded, open eyes when oral suction provided, Patient on trach to vent Portex 8 AC 15 TV 450 Fio2 25% PEEP 5 O2 sat 99% at this time, GT feeding on hold per order [id number], Rectal tube intact, draining well to gravity, generalized edematous, Avalos Catheter draining well to gravity at this time. IV on left hand 22G, asymptomatic, patent, intact. Endorsed HD done yesterday 2L out. Bed in lowest position and locked, side rails upx3, call light within reach, bed alarm on, Will continue to monitor.
--- NOTE | 2019-08-20 07:52 | General Progress Note ---
Assessment/Plan Assessment/Plan: IMPRESSION: 1. anemia. 2. GI bleed. 3. Leukocytosis. 4. Probable sepsis. + BCX 5. Acute on chronic renal failure. 6. Hyponatremia. 7. Severe protein-calorie malnutrition. 8. Significantly elevated C-reactive protein concerning for infectious etiology. 9. Tracheostomy, G-tube. 10. Ventilator dependence. 11. anasarca with bilateral pleural effusion 12. 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 PLAN care noted on vent surgical follow up monitor sodium rate control HD monitor renal function: HD iv antibiotics care noted and reviewed remains ill difficult to place with need for HD and vent impression, plan, and exam edited and reviewed in detail care discussed with RN Subjective Allergies: Coded Allergies: No Known Allergies (Unverified , 06/10/19) Subjective remains ill on vent on HD weekend events noted Objective Last 24 Hour Vital Signs Date Time Temp Pulse Resp B/P (MAP) Pulse Ox O2 Delivery O2 Flow Rate FiO2 08/20/19 07:15 93 24 24 08/20/19 04:00 Mechanical Ventilator Mechanical Ventilator 08/20/19 04:00 97.9 86 22 144/59 (87) 100 08/20/19 04:00 25 08/20/19 03:50 86 08/20/19 03:30 86 24 24 08/20/19 00:00 Mechanical Ventilator Mechanical Ventilator 08/20/19 00:00 98.8 88 22 131/47 (75) 100 08/19/19 23:53 89 08/19/19 23:30 86 22 24 08/19/19 21:42 89 130/77 08/19/19 20:00 25 08/19/19 20:00 97.3 90 22 129/70 (89) 100 08/19/19 20:00 Mechanical Ventilator Mechanical Ventilator 08/19/19 19:58 95 08/19/19 19:30 91 27 24 08/19/19 16:00 25 08/19/19 16:00 Mechanical Ventilator Mechanical Ventilator 08/19/19 16:00 98.1 74 18 147/65 (92) 100 08/19/19 16:00 76 08/19/19 15:16 73 18 25 08/19/19 12:00 98.2 75 18 126/66 (86) 100 08/19/19 12:00 Mechanical Ventilator Mechanical Ventilator 08/19/19 12:00 25 08/19/19 12:00 72 08/19/19 11:03 76 21 25 08/19/19 08:18 75 128/60 08/19/19 08:18 128/60 08/19/19 08:00 Mechanical Ventilator Mechanical Ventilator 08/19/19 08:00 71 08/19/19 08:00 97.9 71 20 125/52 (76) 100 08/19/19 08:00 25 Intake and Output 08/19/19 08/20/19 19:00 07:00 Intake Total 605 ml 670 ml Output Total 200 ml 2135 ml Balance 405 ml -1465 ml Free Water 90 ml 120 ml IV Total 110 ml 55 ml Tube Feeding 405 ml 495 ml Output Urine Total 150 ml 100 ml Stool Total 50 ml 35 ml Hemodialysis UF 2000 ml # Bowel Movements 2 Laboratory Tests 08/19/19 11:37: POC Whole Blood Glucose 161H 08/19/19 17:37: POC Whole Blood Glucose 151H 08/19/19 23:12: POC Whole Blood Glucose [Pending] 08/20/19 01:30: Stool Occult Blood [Pending] 08/20/19 05:27: POC Whole Blood Glucose [Pending] 08/20/19 05:45: White Blood Count 21.7H, Red Blood Count 3.04L, Hemoglobin 8.2L, Hematocrit 26.3L, Mean Corpuscular Volume 87, Mean Corpuscular Hemoglobin 27.0, Mean Corpuscular Hemoglobin Concent 31.1L, Red Cell Distribution Width 17.7H, Platelet Count 210, Mean Platelet Volume 5.5L, Neutrophils (%) (Auto) , Lymphocytes (%) (Auto) , Monocytes (%) (Auto) , Eosinophils (%) (Auto) , Basophils (%) (Auto) , Neutrophils % (Manual) [Pending], Lymphocytes % (Manual) [Pending], Platelet Estimate [Pending], Platelet Morphology [Pending], Sodium Level 141, Potassium Level 3.8, Chloride Level 104, Carbon Dioxide Level 29, Anion Gap 8, Blood Urea Nitrogen 47H, Creatinine 2.3H, Estimat Glomerular Filtration Rate 27.6, Glucose Level 222H, Calcium Level 8.7 Height (Feet): 6 Height (Inches): 7 Weight (Pounds): 166 Objective GENERAL: Ill-appearing male, chronically debilitated. HEENT: Tracheostomy in midline. Questionable fullness in the submandibular region. LUNGS: Coarse breath sounds. reduced breath sounds CARDIAC: S1, S2. Regular rate and rhythm. ABDOMEN: Soft. G-tube. EXTREMITIES: With noted edema. NEUROLOGICAL: Poorly responsive, weak diffusely. Kain Ramirez MD Aug 20, 2019 07:52
[2019-08-20 08:00] VITALS: BP 152/67
[2019-08-20] MEDS: Multivitamins W/Minerals 15 ML UDC GT SCH (08:09)
[2019-08-20] MEDS: Nephrovite tab (Rena-Vite) GT SCH (08:10)
[2019-08-20] MEDS: Ascorbic Acid 500mg tab GT SCH (08:10)
[2019-08-20] MEDS: Minoxidil 2.5mg tab GT SCH (08:10)
[2019-08-20] MEDS: Metoprolol Tartrate 100mg tab GT SCH ×2 (08:10→20:46)
[2019-08-20] MEDS: Vitamin D 1000 IU Tab GT SCH (08:10)
[2019-08-20] MEDS: Acetaminophen 650mg/20.3ml GT PRN (08:10)
[2019-08-20] MEDS: Zinc Oxide Oint 2oz TOPIC SCH ×2 (08:11→17:19)
[2019-08-20] MEDS: Piperacillin/Tazobactam 2.25 GM in NS 55 ML IV SCH ×3 (08:12→23:33)
[2019-08-20] MEDS ORDERED: NS 275ml ONE (09:58)
[2019-08-20] MEDS ORDERED: Tubing IV Secondary IV ONE (09:58)
--- NOTE | 2019-08-20 10:27 | Surgery Progress Note ---
Surgery Progress Note Subjective Procedure Performed Right femoral temporary hemodialysis catheter insertion Additional Comments persistent leukocytosis kub noted gi input appreciated no n/v Objective Last 24 Hour Vital Signs Date Time Temp Pulse Resp B/P (MAP) Pulse Ox O2 Delivery O2 Flow Rate FiO2 08/20/19 08:40 98.6 08/20/19 08:10 92 152/67 08/20/19 08:10 152/67 08/20/19 08:00 100.0 92 22 152/67 (95) 100 08/20/19 08:00 Mechanical Ventilator Mechanical Ventilator 08/20/19 08:00 94 08/20/19 07:15 93 24 24 08/20/19 04:00 Mechanical Ventilator Mechanical Ventilator 08/20/19 04:00 97.9 86 22 144/59 (87) 100 08/20/19 04:00 25 08/20/19 03:50 86 08/20/19 03:30 86 24 24 08/20/19 00:00 Mechanical Ventilator Mechanical Ventilator 08/20/19 00:00 98.8 88 22 131/47 (75) 100 08/19/19 23:53 89 08/19/19 23:30 86 22 24 08/19/19 21:42 89 130/77 08/19/19 20:00 25 08/19/19 20:00 97.3 90 22 129/70 (89) 100 08/19/19 20:00 Mechanical Ventilator Mechanical Ventilator 08/19/19 19:58 95 08/19/19 19:30 91 27 24 08/19/19 16:00 25 08/19/19 16:00 Mechanical Ventilator Mechanical Ventilator 08/19/19 16:00 98.1 74 18 147/65 (92) 100 08/19/19 16:00 76 08/19/19 15:16 73 18 25 08/19/19 12:00 98.2 75 18 126/66 (86) 100 08/19/19 12:00 Mechanical Ventilator Mechanical Ventilator 08/19/19 12:00 25 08/19/19 12:00 72 08/19/19 11:03 76 21 25 I&O Intake and Output 08/19/19 08/20/19 19:00 07:00 Intake Total 605 ml 670 ml Output Total 200 ml 2135 ml Balance 405 ml -1465 ml Free Water 90 ml 120 ml IV Total 110 ml 55 ml Tube Feeding 405 ml 495 ml Output Urine Total 150 ml 100 ml Stool Total 50 ml 35 ml Hemodialysis UF 2000 ml # Bowel Movements 2 Dressing: other Wound: other Drains: other Cardiovascular: RSR Respiratory: decreased breath sounds Abdomen: soft, non-tender, present bowel sounds Extremities: no tenderness, no cyanosis Laboratory Tests Test 08/19/19 11:37 08/19/19 17:37 08/19/19 23:12 08/20/19 01:30 POC Whole Blood Glucose 161 MG/DL (74-106) H 151 MG/DL (74-106) H Pending Stool Occult Blood Pending Test 08/20/19 05:27 08/20/19 05:45 POC Whole Blood Glucose Pending White Blood Count 21.7 K/UL (4.8-10.8) H Red Blood Count 3.04 M/UL (4.70-6.10) L Hemoglobin 8.2 G/DL (14.2-18.0) L Hematocrit 26.3 % (42.0-52.0) L Mean Corpuscular Volume 87 FL (80-99) Mean Corpuscular Hemoglobin 27.0 PG (27.0-31.0) Mean Corpuscular Hemoglobin Concent 31.1 G/DL (32.0-36.0) L Red Cell Distribution Width 17.7 % (11.6-14.8) H Platelet Count 210 K/UL (150-450) Mean Platelet Volume 5.5 FL (6.5-10.1) L Neutrophils (%) (Auto) % (45.0-75.0) Lymphocytes (%) (Auto) % (20.0-45.0) Monocytes (%) (Auto) % (1.0-10.0) Eosinophils (%) (Auto) % (0.0-3.0) Basophils (%) (Auto) % (0.0-2.0) Differential Total Cells Counted 100 Neutrophils % (Manual) 87 % (45-75) H Lymphocytes % (Manual) 8 % (20-45) L Monocytes % (Manual) 2 % (1-10) Eosinophils % (Manual) 3 % (0-3) Basophils % (Manual) 0 % (0-2) Band Neutrophils 0 % (0-8) Platelet Estimate Adequate Platelet Morphology Normal Polychromasia 1+ Hypochromasia 1+ Anisocytosis 1+ Sodium Level 141 MMOL/L (136-145) Potassium Level 3.8 MMOL/L (3.5-5.1) Chloride Level 104 MMOL/L (98-107) Carbon Dioxide Level 29 MMOL/L (21-32) Anion Gap 8 mmol/L (5-15) Blood Urea Nitrogen 47 mg/dL (7-18) H Creatinine 2.3 MG/DL (0.55-1.30) H Estimat Glomerular Filtration Rate 27.6 mL/min (>60) Glucose Level 222 MG/DL (74-106) H Calcium Level 8.7 MG/DL (8.5-10.1) Plan Problems: (1) Anemia (2) Hyponatremia (3) Leukocytosis Assessment & Plan: Tracheostomy, left chest pacemaker are again demonstrated. There is bilateral interstitial and airspace disease and bilateral pleural fluid again demonstrated. This appears more severe than on the prior study. Bilateral interstitial and airspace infiltrates versus edema. Bilateral pleural effusions Leukocytosis, anemia, tachycardia, abnormal labs. Wound evaluated and likely etiology of patient's sepsis. Leukocytosis etiology work-up antibiotics per infectious disease Appreciate nephrology input transfuse with dialysis We will follow with recommendations thank you allowing participation's care plan HD access temp HD discussed with medical teams line okay HD as per renal persistent leukocytosis flow cyto noted (4) Ventilator dependent (5) Right lower lobe pneumonia (6) Hypokalemia (7) Hyperkalemia (8) Anasarca (9) Decubitus skin ulcer Assessment & Plan: pt presented on admission with generalized edemae.Skin assessed under tracheostomy and no areas of concerns noted. GT Insertion is marginally erythematous with small amt slough at stoma. Unstageable Pressure Injury R elbow. Base of wound is 100% yellow slough, Borders are erythematous. Wound oozing small amt haemopurulent exudate.Darker skin tone without elevation in skin temp or erythema periwound. Pt's penis and scrotum are grossly edematous and enlarged and weeping serous exudate from numerous sites both from penis and scrotum. Two small open wounds noted at base of at base of shaft of penis ,and contreras aspect of scrotum. Both wounds oozing large amt sanguineous and serosanguineous exudate. Multiple open wounds with Biofilm at base of each wounds noted to contreras/lateral,inferior and posterior aspects of scrotum. These wounds noted to be oozing moderate amts of serosanguineous exudate. Hypertrophic scar with scattered areas of hyperpigmentation noted to Sacrum. DTPI noted to L Buttocks (L)7cm x (W)9cm. Base of wound is purple and indurated.Darker skin tone without erythema, induration or fluctuance R and L ischial tuberosities. Both heels are boggy with non-blanchable erythema. Tx.Plan: Cleanse wound R elbow with Saline. Apply TheraHoney, Apply Moisture Barrier Paste periwound. Cover with Optifoam drsg.Change Daily and prn. Wash GT site with soap and water.Pat dry. Apply Zinc Oxide Paste to GT site Daily. Leave Open to Air. Apply Zinc Oxide Paste to entire Scrotum, Place ABD pads to R and L lateral, and posterior aspects of scrotum TWICE daily. Apply Cavilon Skin Barrier to malleoli and both Heels. Cover each site with Optifoam drsgs. Change every 7 days and prn. Reposition at least every 2hours or as tolerated. Off-load heels with Pillows. APM/BECCA Mattress overlay. (10) Malnutrition Assessment & Plan: DAILY ESTIMATED NEEDS: Needs based on Renal, critical care, wound/ 61kg 22-28 kcals/kg 9984-2839 total kcals 1-1.25 (increase w/ renal improvement) g protein/kg 61-76 g total protein 20-25 mL/kg 9821-3630 total fluid mLs NUTRITION DIAGNOSIS: * Swallowing difficulty R/T respiratory failure, dysphagia as evidenced by trach/vent dep, PEG dep * Increased kcal/prot needs R/T wound healing as evidenced by admitted w/ multiple pressure injuries per photos, pending eval. CURRENT TF:Nepro @ 45ml/hr x 24 hrs ENTERAL NUTRITION RECOMMENDATIONS: NEPRO to 45ml/hr x 20 hrs to provide 900ml, 1620kcal, 73g prot, 654ml free water * Maintain current TF * HOB over 30 degrees/ water flush per MD ADDITIONAL RECOMMENDATIONS: * Per SNF: HT=63" SQ=839 lbs (Vs EMR wt of 165lbs) -> obtain re-calibrated bedscale wt * Wound healing: add Nephrovite x 1 + Vit C 250mg QD add Garo 1pkt BID via GT * Monitor renal fxn and lytes, check phos level (11) Uremia (12) CKD (chronic kidney disease) stage 5, GFR less than 15 ml/min (13) Colon distention Assessment & Plan: discussed with GI likely functional as having lots of loose bm rectal tube kub f/u Marked distention of the sigmoid colon. 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 No evidence of bowel wall thickening or pneumatosis 12 mm focus of contrast enhancement in the right pectineus muscle. While nonspecific in appearance, appearance raises concern for a possible pseudoaneurysm. Ill- defined thickening of the pectus medius muscle could indicate some intramuscular hemorrhage. The above findings were phoned to Dr. Urias at the time of interpretation Large bilateral pleural effusions Hazy pulmonary parenchymal opacities as well as dense consolidative opacities most likely represent pulmonary edema, but could represent pneumonia Evidence of anasarca elsewhere, with generalized edema of the subcutaneous fat Bladder wall thickening, raises concern for cystitis. Avalos catheter in place Colonic diverticulosis. No evidence of diverticulitis. Tracheostomy Pacemaker Gastrostomy Jonathan Urias Aug 20, 2019 10:27
[2019-08-20 12:00] VITALS: BP 125/55
--- NOTE | 2019-08-20 12:23 | Infectious Diseases Prog Note ---
Assessment/Plan Assessment/Plan A: 1. Pneumonia with Pseudomonas, Providencia, Proteus, strep group G COVID19 X2 : negative 2. Renal failure. 3. Leukocytosis 4. Respiratory failure, Ventilator dependent 5. Anemia 6. Anasarca 7. 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 Continue Zosyn X 2 days 2. Negative stool c.difficile test Subjective ROS Limited/Unobtainable: Yes Constitutional: Reports: fever, other - Ch=027 Allergies: Coded Allergies: No Known Allergies (Unverified , 06/10/19) Objective Last 24 Hour Vital Signs Date Time Temp Pulse Resp B/P (MAP) Pulse Ox O2 Delivery O2 Flow Rate FiO2 08/20/19 10:51 68 18 24 08/20/19 08:40 98.6 08/20/19 08:10 92 152/67 08/20/19 08:10 152/67 08/20/19 08:00 25 08/20/19 08:00 100.0 92 22 152/67 (95) 100 08/20/19 08:00 Mechanical Ventilator Mechanical Ventilator 08/20/19 08:00 94 08/20/19 07:15 93 24 24 08/20/19 04:00 Mechanical Ventilator Mechanical Ventilator 08/20/19 04:00 97.9 86 22 144/59 (87) 100 08/20/19 04:00 25 08/20/19 03:50 86 08/20/19 03:30 86 24 24 08/20/19 00:00 Mechanical Ventilator Mechanical Ventilator 08/20/19 00:00 98.8 88 22 131/47 (75) 100 08/19/19 23:53 89 08/19/19 23:30 86 22 24 08/19/19 21:42 89 130/77 08/19/19 20:00 25 08/19/19 20:00 97.3 90 22 129/70 (89) 100 08/19/19 20:00 Mechanical Ventilator Mechanical Ventilator 08/19/19 19:58 95 08/19/19 19:30 91 27 24 08/19/19 16:00 25 08/19/19 16:00 Mechanical Ventilator Mechanical Ventilator 08/19/19 16:00 98.1 74 18 147/65 (92) 100 08/19/19 16:00 76 08/19/19 15:16 73 18 25 Height (Feet): 6 Height (Inches): 7 Weight (Pounds): 166 HEENT: mucous membranes moist, status post trach Respiratory/Chest: lungs clear, other - on ventilator Cardiovascular: normal rate Abdomen: soft, non tender, other - GT feeding Genitourinary: other - scrotal edema Extremities: other - generalized edema Skin: ulcers Neurologic/Psychiatric: other - opens eyes Laboratory Tests Test 08/19/19 17:37 08/19/19 23:12 08/20/19 01:30 08/20/19 05:27 POC Whole Blood Glucose 151 MG/DL (74-106) H Pending Pending Stool Occult Blood Positive (NEGATIVE) Test 08/20/19 05:45 08/20/19 12:12 White Blood Count 21.7 K/UL (4.8-10.8) H Red Blood Count 3.04 M/UL (4.70-6.10) L Hemoglobin 8.2 G/DL (14.2-18.0) L Hematocrit 26.3 % (42.0-52.0) L Mean Corpuscular Volume 87 FL (80-99) Mean Corpuscular Hemoglobin 27.0 PG (27.0-31.0) Mean Corpuscular Hemoglobin Concent 31.1 G/DL (32.0-36.0) L Red Cell Distribution Width 17.7 % (11.6-14.8) H Platelet Count 210 K/UL (150-450) Mean Platelet Volume 5.5 FL (6.5-10.1) L Neutrophils (%) (Auto) % (45.0-75.0) Lymphocytes (%) (Auto) % (20.0-45.0) Monocytes (%) (Auto) % (1.0-10.0) Eosinophils (%) (Auto) % (0.0-3.0) Basophils (%) (Auto) % (0.0-2.0) Differential Total Cells Counted 100 Neutrophils % (Manual) 87 % (45-75) H Lymphocytes % (Manual) 8 % (20-45) L Monocytes % (Manual) 2 % (1-10) Eosinophils % (Manual) 3 % (0-3) Basophils % (Manual) 0 % (0-2) Band Neutrophils 0 % (0-8) Platelet Estimate Adequate Platelet Morphology Normal Polychromasia 1+ Hypochromasia 1+ Anisocytosis 1+ Sodium Level 141 MMOL/L (136-145) Potassium Level 3.8 MMOL/L (3.5-5.1) Chloride Level 104 MMOL/L (98-107) Carbon Dioxide Level 29 MMOL/L (21-32) Anion Gap 8 mmol/L (5-15) Blood Urea Nitrogen 47 mg/dL (7-18) H Creatinine 2.3 MG/DL (0.55-1.30) H Estimat Glomerular Filtration Rate 27.6 mL/min (>60) Glucose Level 222 MG/DL (74-106) H Calcium Level 8.7 MG/DL (8.5-10.1) POC Whole Blood Glucose 158 MG/DL (74-106) H Current Medications Medications (Trade) Dose Ordered Sig/Leonel Route PRN Reason Start Time Stop Time Status Last Admin Dose Admin Acetaminophen (Tylenol) 650 mg Q4H PRN GT Mild Pain / fever 08/09/19 05:30 09/08/19 05:29 08/20/19 08:10 Al Hydroxide/Mg Hydroxide (Mylanta) 30 ml FOUR TIMES A DAY PRN GT constipation 08/09/19 06:00 09/08/19 05:29 Ascorbic Acid (Vitamin C) 500 mg DAILY GT 08/09/19 09:00 09/08/19 08:59 08/20/19 08:10 Atorvastatin Calcium (Lipitor) 40 mg BEDTIME GT 08/09/19 21:00 11/07/19 20:59 08/19/19 20:45 Chlorhexidine Gluconate (Felipa-Hex 2%) 1 applic DAILY@1999 TOPIC 08/15/19 20:00 11/13/19 19:59 08/19/19 20:44 Clonidine HCl (Catapres Tab) 0.1 mg Q4H PRN GT SBP>150 08/12/19 10:45 11/10/19 06:44 Dextrose (Dextrose 50%) 25 ml Q30M PRN IV Hypoglycemia 08/09/19 07:30 11/07/19 07:29 Dextrose (Dextrose 50%) 50 ml Q30M PRN IV Hypoglycemia 08/09/19 07:30 11/07/19 07:29 Epoetin Andreas (Epoetin Andreas(ESRD on dialysis)) 10,000 unit WED-WED-WED SUBQ 08/18/19 21:00 11/16/19 20:59 08/18/19 20:43 Insulin Aspart (NovoLOG) Q6HR SUBQ 08/10/19 00:00 11/07/19 11:29 08/20/19 12:13 Lansoprazole (Prevacid) 30 mg DAILY GT 08/09/19 09:00 09/08/19 08:59 08/20/19 08:10 Loperamide HCl (Imodium) 2 mg Q4H PRN GT Diarrhea 08/09/19 08:00 09/08/19 07:59 Metoprolol Tartrate (Lopressor) 200 mg Q12HR GT 08/09/19 09:00 11/07/19 08:59 08/20/19 08:10 Minoxidil (Loniten) 5 mg DAILY GT 08/09/19 09:00 11/07/19 08:59 08/20/19 08:10 Multivitamins (Multivitamins W/ Minerals 15ml Liquid) 15 ml DAILY GT 08/09/19 09:00 09/08/19 08:59 08/20/19 08:09 Piperacillin Sod/ Tazobactam Sod 2.25 gm/Sodium Chloride 55 ml @ 110 mls/hr Q8H IV 08/17/19 16:00 08/22/19 23:59 08/20/19 08:12 Vitamin B Complex/ Vit C/Folic Acid (Nephrovite) 1 tab DAILY GT 08/09/19 09:00 09/08/19 08:59 08/20/19 08:10 Vitamin D (Vitamin D) 1,000 intlu DAILY GT 08/09/19 09:00 09/08/19 08:59 08/20/19 08:10 Zinc Oxide (Zinc Oxide) 1 applic BID TOPIC 08/10/19 18:00 11/08/19 17:59 08/20/19 08:11 Real De Leon MD Aug 20, 2019 12:23
--- NOTE | 2019-08-20 12:30 | NUR ---
NURSE NOTES: Dr. Nilay De Leon at the nursing station, made aware in am mild fever of 100.0, Tylenol given, now 98.5, no new order received at this time. Will continue to monitor.
--- NOTE | 2019-08-20 12:59 | Hematology/Onc Progress Note ---
Assessment/Plan Assessment/Plan Assessment/recs # Leukocytosis - with multiple infections, VRE UTI --> wbc trend 33-->28-->25->23->22 --> on abx, linezolid and zosyn--> zosyn --> + blood cultures with coag neg staph likely contaminated --> as per id recs --> has ordered a flow cytometry (with pathology) --> does show increased nK cell activity --> JOURDAN 2 and bcr-abl labs ordered (these are send outs) # Anemia due to chronic disease/kidney disease as well, gi bleed + occult + noted --> was on iron in the past, now on hold --> has been started on epogen --> as per renal care --> egd done and shows gastritis --> on ppi --> egd showed gastritis, colo recently done --> hgb 9-->8.7 # Respiratory failure --> per pulm, s/p trach --> COVID 19 test negative x 2 # Dysphagia s/p gtube with nepro --> per gi # ESRD with r fem julito --> hd as per renal # Dvt ppx scds Appreciate consultation and matt Rn Subjective HEENT: Denies: no symptoms, eye pain, blurred vision, tearing, double vision, ear pain, ear discharge, nose pain, nose congestion, throat pain, throat swelling, mouth pain, mouth swelling, other Cardiovascular: Denies: no symptoms, chest pain, edema, irregular heart rate, lightheadedness, palpitations, syncope, other Respiratory: Denies: no symptoms, cough, shortness of breath, SOB with excertion, SOB at rest, sputum, wheezing, other Gastrointestinal/Abdominal: Denies: no symptoms, abdomen distended, abdominal pain, black stools, tarry stools, blood in stool, constipated, diarrhea, difficulty swallowing, nausea, poor appetite, poor fluid intake, rectal bleeding , vomiting, other Genitourinary: Denies: no symptoms, burning, discharge, frequency, flank pain, hematuria, incontinence, pain, urgency, other Neurologic/Psychiatric: Denies: no symptoms, anxiety, depressed, emotional problems, headache, numbness, paresthesia, pre-existing deficit, seizure, tingling, tremors, weakness, other Endocrine: Denies: no symptoms, excessive sweating, flushing, intolerance to cold, intolerance to heat, increased hunger, increased thirst, increased urine, unexplained weight gain, unexplained weight loss, other Allergies: Coded Allergies: No Known Allergies (Unverified , 06/10/19) Subjective 08/15 meds noted, no bleeding, hgb 8.8, wbc 28, path flow pending 08/16 flow pending dw pathologist, results pending, wbc 25, hgb 9 08/17 labs reviewed, meds reviewed, meds noted, no night sweats 08/19 remains obtunded, on vent/trach, no bleeding wbc 21.7 Objective Objective Current Medications Medications (Trade) Dose Ordered Sig/Leonel Route PRN Reason Start Time Stop Time Status Last Admin Dose Admin Acetaminophen (Tylenol) 650 mg Q4H PRN GT Mild Pain / fever 08/09/19 05:30 09/08/19 05:29 08/20/19 08:10 Al Hydroxide/Mg Hydroxide (Mylanta) 30 ml FOUR TIMES A DAY PRN GT constipation 08/09/19 06:00 09/08/19 05:29 Ascorbic Acid (Vitamin C) 500 mg DAILY GT 08/09/19 09:00 09/08/19 08:59 08/20/19 08:10 Atorvastatin Calcium (Lipitor) 40 mg BEDTIME GT 08/09/19 21:00 11/07/19 20:59 08/19/19 20:45 Chlorhexidine Gluconate (Felipa-Hex 2%) 1 applic DAILY@2000 TOPIC 08/15/19 20:00 11/13/19 19:59 08/19/19 20:44 Clonidine HCl (Catapres Tab) 0.1 mg Q4H PRN GT SBP>150 08/12/19 10:45 11/10/19 06:44 Dextrose (Dextrose 50%) 25 ml Q30M PRN IV Hypoglycemia 08/09/19 07:30 11/07/19 07:29 Dextrose (Dextrose 50%) 50 ml Q30M PRN IV Hypoglycemia 08/09/19 07:30 11/07/19 07:29 Epoetin Andreas (Epoetin Andreas(ESRD on dialysis)) 10,000 unit MON-WED-WED SUBQ 08/18/19 21:00 11/16/19 20:59 08/18/19 20:43 Insulin Aspart (NovoLOG) Q6HR SUBQ 08/10/19 00:00 11/07/19 11:29 08/20/19 12:13 Lansoprazole (Prevacid) 30 mg DAILY GT 08/09/19 09:00 09/08/19 08:59 08/20/19 08:10 Loperamide HCl (Imodium) 2 mg Q4H PRN GT Diarrhea 08/09/19 08:00 09/08/19 07:59 Metoprolol Tartrate (Lopressor) 200 mg Q12HR GT 08/09/19 09:00 11/07/19 08:59 08/20/19 08:10 Minoxidil (Loniten) 5 mg DAILY GT 08/09/19 09:00 11/07/19 08:59 08/20/19 08:10 Multivitamins (Multivitamins W/ Minerals 15ml Liquid) 15 ml DAILY GT 08/09/19 09:00 09/08/19 08:59 08/20/19 08:09 Piperacillin Sod/ Tazobactam Sod 2.25 gm/Sodium Chloride 55 ml @ 110 mls/hr Q8H IV 08/17/19 16:00 08/22/19 23:59 08/20/19 08:12 Vitamin B Complex/ Vit C/Folic Acid (Nephrovite) 1 tab DAILY GT 08/09/19 09:00 09/08/19 08:59 08/20/19 08:10 Vitamin D (Vitamin D) 1,000 intlu DAILY GT 08/09/19 09:00 09/08/19 08:59 08/20/19 08:10 Zinc Oxide (Zinc Oxide) 1 applic BID TOPIC 08/10/19 18:00 11/08/19 17:59 08/20/19 08:11 Last 24 Hour Vital Signs Date Time Temp Pulse Resp B/P (MAP) Pulse Ox O2 Delivery O2 Flow Rate FiO2 08/20/19 10:51 68 18 24 08/20/19 08:40 98.6 08/20/19 08:10 92 152/67 08/20/19 08:10 152/67 08/20/19 08:00 25 08/20/19 08:00 100.0 92 22 152/67 (95) 100 08/20/19 08:00 Mechanical Ventilator Mechanical Ventilator 08/20/19 08:00 94 08/20/19 07:15 93 24 24 08/20/19 04:00 Mechanical Ventilator Mechanical Ventilator 08/20/19 04:00 97.9 86 22 144/59 (87) 100 08/20/19 04:00 25 08/20/19 03:50 86 08/20/19 03:30 86 24 24 08/20/19 00:00 Mechanical Ventilator Mechanical Ventilator 08/20/19 00:00 98.8 88 22 131/47 (75) 100 08/19/19 23:53 89 08/19/19 23:30 86 22 24 08/19/19 21:42 89 130/77 08/19/19 20:00 25 08/19/19 20:00 97.3 90 22 129/70 (89) 100 08/19/19 20:00 Mechanical Ventilator Mechanical Ventilator 08/19/19 19:58 95 08/19/19 19:30 91 27 24 08/19/19 16:00 25 08/19/19 16:00 Mechanical Ventilator Mechanical Ventilator 08/19/19 16:00 98.1 74 18 147/65 (92) 100 08/19/19 16:00 76 08/19/19 15:16 73 18 25 08/19/19 12:00 98.2 75 18 126/66 (86) 100 08/19/19 12:00 Mechanical Ventilator Mechanical Ventilator 08/19/19 12:00 25 08/19/19 12:00 72 08/19/19 11:03 76 21 25 08/19/19 08:18 75 128/60 08/19/19 08:18 128/60 08/19/19 08:00 Mechanical Ventilator Mechanical Ventilator 08/19/19 08:00 71 08/19/19 08:00 97.9 71 20 125/52 (76) 100 08/19/19 08:00 25 08/19/19 07:29 75 19 25 08/19/19 04:00 25 08/19/19 04:00 97.4 72 18 128/60 (82) 100 08/19/19 04:00 Mechanical Ventilator 15.0 08/19/19 03:43 68 08/19/19 02:37 65 19 25 08/19/19 00:00 97.7 64 18 135/61 (85) 100 08/19/19 00:00 Mechanical Ventilator 15.0 08/18/19 23:42 63 08/18/19 22:35 60 19 25 08/18/19 20:50 66 128/60 08/18/19 20:00 97.7 65 18 139/66 (90) 100 08/18/19 20:00 Mechanical Ventilator 15.0 08/18/19 20:00 59 08/18/19 20:00 25 08/18/19 18:45 56 16 25 08/18/19 16:00 Mechanical Ventilator 15.0 08/18/19 16:00 97.3 60 18 137/59 (85) 98 08/18/19 16:00 60 08/18/19 16:00 25 08/18/19 15:05 58 16 25 Intake and Output 08/19/19 08/20/19 19:00 07:00 Intake Total 605 ml 670 ml Output Total 200 ml 2135 ml Balance 405 ml -1465 ml Free Water 90 ml 120 ml IV Total 110 ml 55 ml Tube Feeding 405 ml 495 ml Output Urine Total 150 ml 100 ml Stool Total 50 ml 35 ml Hemodialysis UF 2000 ml # Bowel Movements 2 Labs Test 08/17/19 18:36 08/17/19 23:10 08/18/19 03:25 08/18/19 05:15 POC Whole Blood Glucose 153 MG/DL (74-106) White Blood Count 22.7 K/UL (4.8-10.8) Red Blood Count 3.21 M/UL (4.70-6.10) Hemoglobin 8.7 G/DL (14.2-18.0) Hematocrit 27.9 % (42.0-52.0) Mean Corpuscular Volume 87 FL (80-99) Mean Corpuscular Hemoglobin 27.2 PG (27.0-31.0) Mean Corpuscular Hemoglobin Concent 31.4 G/DL (32.0-36.0) Red Cell Distribution Width 17.1 % (11.6-14.8) Platelet Count 305 K/UL (150-450) Mean Platelet Volume 5.2 FL (6.5-10.1) Neutrophils (%) (Auto) % (45.0-75.0) Lymphocytes (%) (Auto) % (20.0-45.0) Monocytes (%) (Auto) % (1.0-10.0) Eosinophils (%) (Auto) % (0.0-3.0) Basophils (%) (Auto) % (0.0-2.0) Differential Total Cells Counted 100 Neutrophils % (Manual) 91 % (45-75) Lymphocytes % (Manual) 4 % (20-45) Monocytes % (Manual) 4 % (1-10) Eosinophils % (Manual) 1 % (0-3) Basophils % (Manual) 0 % (0-2) Band Neutrophils 0 % (0-8) Platelet Estimate Adequate Platelet Morphology Normal Hypochromasia 2+ Anisocytosis 1+ Sodium Level 139 MMOL/L (136-145) Potassium Level 2.8 MMOL/L (3.5-5.1) Chloride Level 103 MMOL/L (98-107) Carbon Dioxide Level 25 MMOL/L (21-32) Anion Gap 11 mmol/L (5-15) Blood Urea Nitrogen 71 mg/dL (7-18) Creatinine 2.5 MG/DL (0.55-1.30) Estimat Glomerular Filtration Rate 25.1 mL/min (>60) Glucose Level 140 MG/DL (74-106) Calcium Level 8.9 MG/DL (8.5-10.1) Phosphorus Level 1.7 MG/DL (2.5-4.9) Magnesium Level 3.1 MG/DL (1.8-2.4) Test 08/18/19 12:50 08/18/19 17:35 08/18/19 17:43 08/18/19 23:19 POC Whole Blood Glucose 143 MG/DL (74-106) 170 MG/DL (74-106) Test 08/19/19 04:55 08/19/19 05:16 08/19/19 11:37 08/19/19 17:37 White Blood Count 20.6 K/UL (4.8-10.8) Red Blood Count 3.13 M/UL (4.70-6.10) Hemoglobin 8.5 G/DL (14.2-18.0) Hematocrit 27.2 % (42.0-52.0) Mean Corpuscular Volume 87 FL (80-99) Mean Corpuscular Hemoglobin 27.3 PG (27.0-31.0) Mean Corpuscular Hemoglobin Concent 31.4 G/DL (32.0-36.0) Red Cell Distribution Width 17.4 % (11.6-14.8) Platelet Count 285 K/UL (150-450) Mean Platelet Volume 5.2 FL (6.5-10.1) Neutrophils (%) (Auto) % (45.0-75.0) Lymphocytes (%) (Auto) % (20.0-45.0) Monocytes (%) (Auto) % (1.0-10.0) Eosinophils (%) (Auto) % (0.0-3.0) Basophils (%) (Auto) % (0.0-2.0) Differential Total Cells Counted 100 Neutrophils % (Manual) 78 % (45-75) Lymphocytes % (Manual) 10 % (20-45) Monocytes % (Manual) 5 % (1-10) Eosinophils % (Manual) 7 % (0-3) Basophils % (Manual) 0 % (0-2) Band Neutrophils 0 % (0-8) Platelet Estimate Adequate Platelet Morphology Normal Hypochromasia 1+ Anisocytosis 1+ Sodium Level 137 MMOL/L (136-145) Potassium Level 2.8 MMOL/L (3.5-5.1) Chloride Level 102 MMOL/L (98-107) Carbon Dioxide Level 24 MMOL/L (21-32) Anion Gap 12 mmol/L (5-15) Blood Urea Nitrogen 77 mg/dL (7-18) Creatinine 3.1 MG/DL (0.55-1.30) Estimat Glomerular Filtration Rate 19.6 mL/min (>60) Glucose Level 184 MG/DL (74-106) Calcium Level 8.7 MG/DL (8.5-10.1) Total Bilirubin 0.4 MG/DL (0.2-1.0) Aspartate Amino Transf (AST/SGOT) 25 U/L (15-37) Alanine Aminotransferase (ALT/SGPT) 18 U/L (12-78) Alkaline Phosphatase 196 U/L (46-116) Total Protein 7.3 G/DL (6.4-8.2) Albumin 1.4 G/DL (3.4-5.0) Globulin 5.9 g/dL Albumin/Globulin Ratio 0.2 (1.0-2.7) POC Whole Blood Glucose 177 MG/DL (74-106) 161 MG/DL (74-106) 151 MG/DL (74-106) Test 08/19/19 23:12 08/20/19 01:30 08/20/19 05:27 08/20/19 05:45 Stool Occult Blood Positive (NEGATIVE) White Blood Count 21.7 K/UL (4.8-10.8) Red Blood Count 3.04 M/UL (4.70-6.10) Hemoglobin 8.2 G/DL (14.2-18.0) Hematocrit 26.3 % (42.0-52.0) Mean Corpuscular Volume 87 FL (80-99) Mean Corpuscular Hemoglobin 27.0 PG (27.0-31.0) Mean Corpuscular Hemoglobin Concent 31.1 G/DL (32.0-36.0) Red Cell Distribution Width 17.7 % (11.6-14.8) Platelet Count 210 K/UL (150-450) Mean Platelet Volume 5.5 FL (6.5-10.1) Neutrophils (%) (Auto) % (45.0-75.0) Lymphocytes (%) (Auto) % (20.0-45.0) Monocytes (%) (Auto) % (1.0-10.0) Eosinophils (%) (Auto) % (0.0-3.0) Basophils (%) (Auto) % (0.0-2.0) Differential Total Cells Counted 100 Neutrophils % (Manual) 87 % (45-75) Lymphocytes % (Manual) 8 % (20-45) Monocytes % (Manual) 2 % (1-10) Eosinophils % (Manual) 3 % (0-3) Basophils % (Manual) 0 % (0-2) Band Neutrophils 0 % (0-8) Platelet Estimate Adequate Platelet Morphology Normal Polychromasia 1+ Hypochromasia 1+ Anisocytosis 1+ Sodium Level 141 MMOL/L (136-145) Potassium Level 3.8 MMOL/L (3.5-5.1) Chloride Level 104 MMOL/L (98-107) Carbon Dioxide Level 29 MMOL/L (21-32) Anion Gap 8 mmol/L (5-15) Blood Urea Nitrogen 47 mg/dL (7-18) Creatinine 2.3 MG/DL (0.55-1.30) Estimat Glomerular Filtration Rate 27.6 mL/min (>60) Glucose Level 222 MG/DL (74-106) Calcium Level 8.7 MG/DL (8.5-10.1) Test 08/20/19 12:12 POC Whole Blood Glucose 158 MG/DL (74-106) Height (Feet): 6 Height (Inches): 7 Weight (Pounds): 166 Objective Physical Exam General Appearance: nad, Chronically Ill Head: normocephalic Eyes: right eye PERRL - Will not open left eye ENT: moist mucus membranes Neck: other - submandibular mass R, fairly rigid with resistance to rotation to L, tracheotomy Respiratory: decreased breath sounds, crackles, other - pacemaker Cardiovascular: regular rate, rhythm, edema - anasarca Gastrointestinal: non tender, distended, other - G tube Genitourinary: other Musculoskeletal: other - Contractures all extremities Neurologic: sensory intact, motor weakness, responsive Psychiatric: other Skin: Decubitus/Ulcer - Stage III right elbow, stage III left elbow, stage II sacrum, stage III scrotum, warm/dry Fitz Campos MD Aug 20, 2019 12:59
--- NOTE | 2019-08-20 15:54 | Nephrology Progress Note ---
Assessment/Plan Problem List: (1) UTI (urinary tract infection) (2) VRE (vancomycin-resistant Enterococci) infection (3) Hyponatremia (4) CKD (chronic kidney disease) stage 5, GFR less than 15 ml/min (5) Malnutrition (6) Anasarca (7) Decubitus skin ulcer (8) Anemia (9) Ventilator dependent (10) Right lower lobe pneumonia Plan HD 08/18 , continue antibiotics Subjective ROS Limited/Unobtainable: Yes Objective Objective Last 24 Hour Vital Signs Date Time Temp Pulse Resp B/P (MAP) Pulse Ox O2 Delivery O2 Flow Rate FiO2 08/20/19 15:19 69 18 24 08/20/19 12:00 70 08/20/19 12:00 25 08/20/19 12:00 Mechanical Ventilator Mechanical Ventilator 08/20/19 12:00 98.6 68 22 125/55 (78) 100 08/20/19 10:51 68 18 24 08/20/19 08:40 98.6 08/20/19 08:10 92 152/67 08/20/19 08:10 152/67 08/20/19 08:00 25 08/20/19 08:00 100.0 92 22 152/67 (95) 100 08/20/19 08:00 Mechanical Ventilator Mechanical Ventilator 08/20/19 08:00 94 08/20/19 07:15 93 24 24 08/20/19 04:00 Mechanical Ventilator Mechanical Ventilator 08/20/19 04:00 97.9 86 22 144/59 (87) 100 08/20/19 04:00 25 08/20/19 03:50 86 08/20/19 03:30 86 24 24 08/20/19 00:00 Mechanical Ventilator Mechanical Ventilator 08/20/19 00:00 98.8 88 22 131/47 (75) 100 08/19/19 23:53 89 08/19/19 23:30 86 22 24 08/19/19 21:42 89 130/77 08/19/19 20:00 25 08/19/19 20:00 97.3 90 22 129/70 (89) 100 08/19/19 20:00 Mechanical Ventilator Mechanical Ventilator 08/19/19 19:58 95 08/19/19 19:30 91 27 24 08/19/19 16:00 25 08/19/19 16:00 Mechanical Ventilator Mechanical Ventilator 08/19/19 16:00 98.1 74 18 147/65 (92) 100 08/19/19 16:00 76 Intake and Output 08/19/19 08/20/19 19:00 07:00 Intake Total 605 ml 670 ml Output Total 200 ml 2135 ml Balance 405 ml -1465 ml Free Water 90 ml 120 ml IV Total 110 ml 55 ml Tube Feeding 405 ml 495 ml Output Urine Total 150 ml 100 ml Stool Total 50 ml 35 ml Hemodialysis UF 2000 ml # Bowel Movements 2 Laboratory Tests 08/19/19 17:37: POC Whole Blood Glucose 151H 08/19/19 23:12: POC Whole Blood Glucose [Pending] 08/20/19 01:30: Stool Occult Blood Positive 08/20/19 05:27: POC Whole Blood Glucose [Pending] 08/20/19 05:45: White Blood Count 21.7H, Red Blood Count 3.04L, Hemoglobin 8.2L, Hematocrit 26.3L, Mean Corpuscular Volume 87, Mean Corpuscular Hemoglobin 27.0, Mean Corpuscular Hemoglobin Concent 31.1L, Red Cell Distribution Width 17.7H, Platelet Count 210, Mean Platelet Volume 5.5L, Neutrophils (%) (Auto) , Lymphocytes (%) (Auto) , Monocytes (%) (Auto) , Eosinophils (%) (Auto) , Basophils (%) (Auto) , Differential Total Cells Counted 100, Neutrophils % ( Manual) 87H, Lymphocytes % (Manual) 8L, Monocytes % (Manual) 2, Eosinophils % ( Manual) 3, Basophils % (Manual) 0, Band Neutrophils 0, Platelet Estimate Adequate, Platelet Morphology Normal, Polychromasia 1+, Hypochromasia 1+, Anisocytosis 1+, Sodium Level 141, Potassium Level 3.8, Chloride Level 104, Carbon Dioxide Level 29, Anion Gap 8, Blood Urea Nitrogen 47H, Creatinine 2.3H, Estimat Glomerular Filtration Rate 27.6, Glucose Level 222H, Calcium Level 8.7 08/20/19 12:12: POC Whole Blood Glucose 158H Height (Feet): 6 Height (Inches): 7 Weight (Pounds): 166 General Appearance: lethargic, other - on vent Cardiovascular: regular rhythm Respiratory/Chest: crackles/rales Abdomen: soft Extremities: no edema Neurologic: unresponsive Carmelo Frank MD Aug 20, 2019 15:54
[2019-08-20 16:00] VITALS: BP 136/62
--- NOTE | 2019-08-20 19:12 | NUR ---
HAND-OFF: Report given to Ana Davis RN. Endorsed plan of care.
--- NOTE | 2019-08-20 19:13 | NUR ---
NURSE NOTES: received pt from Severiano DAVEY., pt is resting on the bed, and obtunded. trach in place, no Respiratory distress noted. O2sat is at 100%. no active bleeding noted. pt is showing V-paced. Gtube site intact, clean and patent. rectal tube in place. foely cath is intact, clean, and draining well with gravity. left hand 22G intact, clean, and patent as well. bed at the lowest position, alarmed, and locked. call light within reach. will continue to monitor pt wit plan of care.
[2019-08-20 20:00] VITALS: BP 150/78
[2019-08-20] MEDS: Atorvastatin 20mg tab GT SCH (20:45)
[2019-08-20] MEDS: Dyna-Hex 2% Top Sol 2oz TOPIC SCH (20:45)
[2019-08-21] VITALS (7 sets, daily range): BP systolic 130–159; BP diastolic 65–86
--- NOTE | 2019-08-21 03:54 | NUR ---
NURSE NOTES: cleaned pt, oral care given, repositioned Q2hrs. no SOB noted, pt seems comfortable. call light within reach. will continue to monitor pt.
[2019-08-21] MEDS: NovoLOG Insulin Flexpen SUBQ SCH ×3 (05:15→18:03)
[2019-08-21] MEDS: Acetaminophen 650mg/20.3ml GT PRN ×2 (05:18→12:15)
--- NOTE | 2019-08-21 07:20 | NUR ---
HAND-OFF: Report given to Aimee DAVEY., pt is stable condition, endorsed plan of care.
--- NOTE | 2019-08-21 07:30 | NUR ---
NURSE NOTES: Received report from TAMICA Muhammad. The patient is resting on the bed without acute distress or shortness of breath. The patient is trach'ed and vent'ed, and communication made by facial expression and body movement. The patient is obtunded and responding to tactile stimuli. The patient is V-paced and SR of 60s on the cafeteria monitor. The patient is trach'ed and vented on following ventilator setting and oxygen saturation is 100%: Portex 7, AC 15, TV 450, FiO2 25%, PEEP 5. The patient's G-tube that is intact and patent and running Nepro @45mL/hr and no residual noted. The patient has rectal tube and Avalos that is intact and patent and draining by gravity. R femoral Rancho cath for HD access and dressing changed on 08/19/2019. Skin issue noted and dressing intact. The patient has IV on L hand 22G that is intact and patent. Per night nurse, the patient had episode of fever and diarrhea. The patient's bed in the lowest position, call light in reach, and falll and aspiration precaution reinforced. Will follow up the lab and order. Will closely monitor the patient. Will continue plan of care.
--- NOTE | 2019-08-21 08:00 | NUR ---
NURSE NOTES: Notified Dr. Mustafa regarding positive OB stool, blackish diarrhea, and fever. Dr. Mustafa ordered c. diff collection. Will closely monitor the patient. Will continue plan of care.
--- NOTE | 2019-08-21 08:08 | General Progress Note ---
Assessment/Plan Assessment/Plan: IMPRESSION: 1. anemia. 2. GI bleed. 3. Leukocytosis. 4. Probable sepsis. + BCX 5. Acute on chronic renal failure. 6. Hyponatremia. 7. Severe protein-calorie malnutrition. 8. Significantly elevated C-reactive protein concerning for infectious etiology. 9. Tracheostomy, G-tube. 10. Ventilator dependence. 11. anasarca with bilateral pleural effusion 12. Hematuria PLAN care noted on vent surgical follow up monitor labs rate control HD monitor renal function: HD iv antibiotics care noted and reviewed remains ill difficult to place with need for HD and vent unstable impression, plan, and exam edited and reviewed in detail care discussed with RN Subjective ROS Limited/Unobtainable: Yes Allergies: Coded Allergies: No Known Allergies (Unverified , 06/10/19) Subjective remains ill on vent on HD + hematuria and some rectal bleeding Objective Last 24 Hour Vital Signs Date Time Temp Pulse Resp B/P (MAP) Pulse Ox O2 Delivery O2 Flow Rate FiO2 08/21/19 07:10 64 16 24 08/21/19 04:00 25 08/21/19 04:00 98.7 75 20 139/65 (89) 100 08/21/19 04:00 Mechanical Ventilator Mechanical Ventilator 08/21/19 03:31 74 21 24 08/21/19 03:30 74 08/21/19 00:00 Mechanical Ventilator Mechanical Ventilator 08/21/19 00:00 74 08/21/19 00:00 98.8 77 20 144/77 (99) 100 08/20/19 23:49 72 18 24 08/20/19 20:46 78 150/78 08/20/19 20:00 Mechanical Ventilator Mechanical Ventilator 08/20/19 20:00 25 08/20/19 20:00 99.0 78 22 150/78 (102) 100 08/20/19 19:21 76 17 24 08/20/19 19:08 74 08/20/19 17:48 71 08/20/19 16:00 98.4 69 22 136/62 (86) 100 08/20/19 16:00 Mechanical Ventilator Mechanical Ventilator 08/20/19 16:00 25 08/20/19 15:19 69 18 24 08/20/19 12:00 70 08/20/19 12:00 25 08/20/19 12:00 Mechanical Ventilator Mechanical Ventilator 08/20/19 12:00 98.6 68 22 125/55 (78) 100 08/20/19 10:51 68 18 24 08/20/19 08:40 98.6 08/20/19 08:10 92 152/67 08/20/19 08:10 152/67 Intake and Output 08/20/19 08/21/19 19:00 07:00 Intake Total 505 ml 630 ml Output Total 165 ml 200 ml Balance 340 ml 430 ml Free Water 90 ml 90 ml IV Total 55 ml Tube Feeding 360 ml 540 ml Output Urine Total 125 ml 200 ml Stool Total 40 ml # Bowel Movements 1 3 Laboratory Tests 08/20/19 12:12: POC Whole Blood Glucose 158H 08/20/19 17:18: POC Whole Blood Glucose 168H 08/20/19 23:30: POC Whole Blood Glucose [Pending] 08/21/19 05:12: POC Whole Blood Glucose [Pending] Height (Feet): 6 Height (Inches): 7 Weight (Pounds): 166 Objective GENERAL: Ill-appearing male, chronically debilitated. HEENT: Tracheostomy in midline. Questionable fullness in the submandibular region. LUNGS: Coarse breath sounds. reduced breath sounds CARDIAC: S1, S2. Regular rate and rhythm. ABDOMEN: Soft. G-tube. EXTREMITIES: With noted edema. NEUROLOGICAL: Poorly responsive, weak diffusely. Kain Ramirez MD Aug 21, 2019 08:08
--- NOTE | 2019-08-21 08:10 | NUR ---
NURSE NOTES: Notified Dr. Ramirez regarding change of condition including fever last night, new onset of hematuria, diarrhea, positive OB stool, and black color stool. Dr. Ramirez ordered CMP and CBC to follow up. Will continue plan of care.
[2019-08-21] MEDS: Piperacillin/Tazobactam 2.25 GM in NS 55 ML IV SCH ×2 (08:34→16:04)
[2019-08-21] MEDS: Minoxidil 2.5mg tab GT SCH (08:34)
[2019-08-21] MEDS: Nephrovite tab (Rena-Vite) GT SCH (08:35)
[2019-08-21] MEDS: Metoprolol Tartrate 100mg tab GT SCH ×2 (08:35→20:26)
[2019-08-21] MEDS: Ascorbic Acid 500mg tab GT SCH (08:35)
[2019-08-21] MEDS: Multivitamins W/Minerals 15 ML UDC GT SCH (08:35)
[2019-08-21] MEDS: Vitamin D 1000 IU Tab GT SCH (08:36)
[2019-08-21] MEDS: Zinc Oxide Oint 2oz TOPIC SCH ×2 (08:36→18:04)
--- NOTE | 2019-08-21 09:37 | General Progress Note ---
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, doubt volvulus - Anemia - Black stools - stool OB (+) - EGD --> gastritis, Colonoscopy --> not planned since done recently - Renal failure - Sepsis / leukocytosis - Anasarca - resp failure, trach - dysphagia, GT - encephalopathy, contracted - Diarrhea, C Diff (-) x 2 - poor px Recommendations - continue TF - Iron panel noted - re check C Diff since high risk - PPI - abx - supportive care Subjective Allergies: Coded Allergies: No Known Allergies (Unverified , 06/10/19) Subjective Above noted NAD tolerating feeds d/w RN notes diarrhea Objective Last 24 Hour Vital Signs Date Time Temp Pulse Resp B/P (MAP) Pulse Ox O2 Delivery O2 Flow Rate FiO2 08/21/19 08:35 68 151/74 08/21/19 08:34 151/74 08/21/19 07:10 64 16 24 08/21/19 04:00 25 08/21/19 04:00 98.7 75 20 139/65 (89) 100 08/21/19 04:00 Mechanical Ventilator Mechanical Ventilator 08/21/19 03:31 74 21 24 08/21/19 03:30 74 08/21/19 00:00 Mechanical Ventilator Mechanical Ventilator 08/21/19 00:00 74 08/21/19 00:00 98.8 77 20 144/77 (99) 100 08/20/19 23:49 72 18 24 08/20/19 20:46 78 150/78 08/20/19 20:00 Mechanical Ventilator Mechanical Ventilator 08/20/19 20:00 25 08/20/19 20:00 99.0 78 22 150/78 (102) 100 08/20/19 19:21 76 17 24 08/20/19 19:08 74 08/20/19 17:48 71 08/20/19 16:00 98.4 69 22 136/62 (86) 100 08/20/19 16:00 Mechanical Ventilator Mechanical Ventilator 08/20/19 16:00 25 08/20/19 15:19 69 18 24 08/20/19 12:00 70 08/20/19 12:00 25 08/20/19 12:00 Mechanical Ventilator Mechanical Ventilator 08/20/19 12:00 98.6 68 22 125/55 (78) 100 08/20/19 10:51 68 18 24 Intake and Output 08/20/19 08/21/19 19:00 07:00 Intake Total 505 ml 630 ml Output Total 165 ml 200 ml Balance 340 ml 430 ml Free Water 90 ml 90 ml IV Total 55 ml Tube Feeding 360 ml 540 ml Output Urine Total 125 ml 200 ml Stool Total 40 ml # Bowel Movements 1 3 Laboratory Tests 08/20/19 12:12: POC Whole Blood Glucose 158H 08/20/19 17:18: POC Whole Blood Glucose 168H 08/20/19 23:30: POC Whole Blood Glucose [Pending] 08/21/19 05:12: POC Whole Blood Glucose [Pending] Height (Feet): 6 Height (Inches): 7 Weight (Pounds): 166 Objective Debilitated AA man NCAT (+) trach coarse BS RR abd distended, anasarca, (+) GT ext (+) edema contracted Ronny Mustafa MD Aug 21, 2019 09:37
[2019-08-21 09:52] LABS: HEMATOCRIT 27.1 % (42.0-52.0); HEMOGLOBIN 8.4 G/DL (14.2-18.0); MEAN CORPUSCULAR VOLUME 88 FL (80-99); PLATELET COUNT 193 K/UL (150-450); RED BLOOD COUNT 3.09 M/UL (4.70-6.10); RED CELL DISTRIBUTION WIDTH 17.6 % (11.6-14.8)
[2019-08-21 09:53] LABS: WHITE BLOOD COUNT 22.7 K/UL (4.8-10.8)
--- NOTE | 2019-08-21 10:00 | NUR ---
NURSE NOTES: Morning medications administered per order. Stable vital signs noted. No fever at this time. Will continue plan of care.
[2019-08-21 10:09] LABS: ANION GAP 8 mmol/L (5-15); BLOOD UREA NITROGEN 58 mg/dL (7-18); CALCIUM 8.4 MG/DL (8.5-10.1); CARBON DIOXIDE 29 MMOL/L (21-32); CHLORIDE 105 MMOL/L (98-107); CREATININE 2.8 MG/DL (0.55-1.30); POTASSIUM 3.4 MMOL/L (3.5-5.1); SODIUM 141 MMOL/L (136-145)
[2019-08-21 10:14] LABS: ALANINE AMINOTRANSFERASE 21 U/L (12-78); ALBUMIN 1.4 G/DL (3.4-5.0); ALBUMIN/GLOBULIN RATIO 0.2 (1.0-2.7); ALKALINE PHOSPHATASE 241 U/L (46-116); ASPARTATE AMINO TRANSFERASE 38 U/L (15-37); BILIRUBIN,TOTAL 0.3 MG/DL (0.2-1.0)
--- NOTE | 2019-08-21 10:30 | NUR ---
NURSE NOTES: Dr. Lyle at the bedside assessed the patient. Notified episode of fever and critical WBC level. Per Dr. Lyle, she will review and order if needed. Will closely monitor the patient. Will continue plan of care.
--- NOTE | 2019-08-21 11:00 | NUR ---
NURSE NOTES: Dr. Muniz at the bedside assessed the patient. Dr. Muniz ordered HD to be done on 08/22/2019. Called [facility] for HD schedule for 08/22/2019. Spoke with ARMANDO. Will closely monitor the patient. Will continue plan of care.
--- NOTE | 2019-08-21 11:13 | Nephrology Progress Note ---
Assessment/Plan Plan Sepsis - IV Abx Skin wounds - wound care Pre ESRD - HD now TTS. Subjective Subjective Obtunded Objective Objective Last 24 Hour Vital Signs Date Time Temp Pulse Resp B/P (MAP) Pulse Ox O2 Delivery O2 Flow Rate FiO2 08/21/19 08:35 68 151/74 08/21/19 08:34 151/74 08/21/19 08:00 98.4 68 20 151/74 (99) 100 08/21/19 08:00 25 08/21/19 07:10 64 16 24 08/21/19 04:00 25 08/21/19 04:00 98.7 75 20 139/65 (89) 100 08/21/19 04:00 Mechanical Ventilator Mechanical Ventilator 08/21/19 03:31 74 21 24 08/21/19 03:30 74 08/21/19 00:00 Mechanical Ventilator Mechanical Ventilator 08/21/19 00:00 74 08/21/19 00:00 98.8 77 20 144/77 (99) 100 08/20/19 23:49 72 18 24 08/20/19 20:46 78 150/78 08/20/19 20:00 Mechanical Ventilator Mechanical Ventilator 08/20/19 20:00 25 08/20/19 20:00 99.0 78 22 150/78 (102) 100 08/20/19 19:21 76 17 24 08/20/19 19:08 74 08/20/19 17:48 71 08/20/19 16:00 98.4 69 22 136/62 (86) 100 08/20/19 16:00 Mechanical Ventilator Mechanical Ventilator 08/20/19 16:00 25 08/20/19 15:19 69 18 24 08/20/19 12:00 70 08/20/19 12:00 25 08/20/19 12:00 Mechanical Ventilator Mechanical Ventilator 08/20/19 12:00 98.6 68 22 125/55 (78) 100 Intake and Output 08/20/19 08/21/19 19:00 07:00 Intake Total 505 ml 630 ml Output Total 165 ml 200 ml Balance 340 ml 430 ml Free Water 90 ml 90 ml IV Total 55 ml Tube Feeding 360 ml 540 ml Output Urine Total 125 ml 200 ml Stool Total 40 ml # Bowel Movements 1 3 Laboratory Tests 08/20/19 12:12: POC Whole Blood Glucose 158H 08/20/19 17:18: POC Whole Blood Glucose 168H 08/20/19 23:30: POC Whole Blood Glucose [Pending] 08/21/19 05:12: POC Whole Blood Glucose [Pending] 08/21/19 09:00: White Blood Count 22.7*H, Red Blood Count 3.09L, Hemoglobin 8.4L, Hematocrit 27.1L, Mean Corpuscular Volume 88, Mean Corpuscular Hemoglobin 27.2, Mean Corpuscular Hemoglobin Concent 31.0L, Red Cell Distribution Width 17.6H, Platelet Count 193, Mean Platelet Volume 6.0L, Neutrophils (%) (Auto) , Lymphocytes (%) (Auto) , Monocytes (%) (Auto) , Eosinophils (%) (Auto) , Basophils (%) (Auto) , Differential Total Cells Counted 100, Neutrophils % ( Manual) 72, Lymphocytes % (Manual) 15L, Monocytes % (Manual) 7, Eosinophils % ( Manual) 6H, Basophils % (Manual) 0, Band Neutrophils 0, Platelet Estimate Adequate, Platelet Morphology Normal, Hypochromasia 1+, Anisocytosis 1+, Sodium Level 141, Potassium Level 3.4L, Chloride Level 105, Carbon Dioxide Level 29, Anion Gap 8, Blood Urea Nitrogen 58H, Creatinine 2.8H, Estimat Glomerular Filtration Rate 22.0, Glucose Level 207H, Calcium Level 8.4L, Total Bilirubin 0.3, Aspartate Amino Transf (AST/SGOT) 38H, Alanine Aminotransferase (ALT/SGPT) 21, Alkaline Phosphatase 241H, Total Protein 7.2, Albumin 1.4L, Globulin 5.8, Albumin/Globulin Ratio 0.2L Height (Feet): 6 Height (Inches): 7 Weight (Pounds): 166 Objective CV RR Trach clean Lungs CTA Abd SNT. BS + E No CCE Erica Pichardo MD Aug 21, 2019 11:13
--- NOTE | 2019-08-21 11:34 | Infectious Diseases Prog Note ---
Assessment/Plan Assessment/Plan antibiotics : zosyn A 1. VRE UTI 2. + blood cultures with coag neg staph likely contaminated 3. respiratory failure 4. leucocytosis improving 5. group G streptococcus, providencia, pseudomonas, serratia pneumonia COVID 19 test negative x 2 6. renal failure on HD P 1. continue zosyn 1 more day 2. will follow up cultures Subjective ROS Limited/Unobtainable: Yes Allergies: Coded Allergies: No Known Allergies (Unverified , 06/10/19) Objective Last 24 Hour Vital Signs Date Time Temp Pulse Resp B/P (MAP) Pulse Ox O2 Delivery O2 Flow Rate FiO2 08/21/19 08:35 68 151/74 08/21/19 08:34 151/74 08/21/19 08:00 98.4 68 20 151/74 (99) 100 08/21/19 08:00 25 08/21/19 07:10 64 16 24 08/21/19 04:00 25 08/21/19 04:00 98.7 75 20 139/65 (89) 100 08/21/19 04:00 Mechanical Ventilator Mechanical Ventilator 08/21/19 03:31 74 21 24 08/21/19 03:30 74 08/21/19 00:00 Mechanical Ventilator Mechanical Ventilator 08/21/19 00:00 74 08/21/19 00:00 98.8 77 20 144/77 (99) 100 08/20/19 23:49 72 18 24 08/20/19 20:46 78 150/78 08/20/19 20:00 Mechanical Ventilator Mechanical Ventilator 08/20/19 20:00 25 08/20/19 20:00 99.0 78 22 150/78 (102) 100 08/20/19 19:21 76 17 24 08/20/19 19:08 74 08/20/19 17:48 71 08/20/19 16:00 98.4 69 22 136/62 (86) 100 08/20/19 16:00 Mechanical Ventilator Mechanical Ventilator 08/20/19 16:00 25 08/20/19 15:19 69 18 24 08/20/19 12:00 70 08/20/19 12:00 25 08/20/19 12:00 Mechanical Ventilator Mechanical Ventilator 08/20/19 12:00 98.6 68 22 125/55 (78) 100 Height (Feet): 6 Height (Inches): 7 Weight (Pounds): 166 HEENT: status post trach Respiratory/Chest: lungs clear Cardiovascular: normal rate, regular rhythm, no gallop/murmur Abdomen: soft, non tender, other - GT Extremities: other - + edema Laboratory Tests Test 08/20/19 12:12 08/20/19 17:18 08/20/19 23:30 08/21/19 05:12 POC Whole Blood Glucose 158 MG/DL (74-106) H 168 MG/DL (74-106) H Pending Pending Test 08/21/19 09:00 White Blood Count 22.7 K/UL (4.8-10.8) *H Red Blood Count 3.09 M/UL (4.70-6.10) L Hemoglobin 8.4 G/DL (14.2-18.0) L Hematocrit 27.1 % (42.0-52.0) L Mean Corpuscular Volume 88 FL (80-99) Mean Corpuscular Hemoglobin 27.2 PG (27.0-31.0) Mean Corpuscular Hemoglobin Concent 31.0 G/DL (32.0-36.0) L Red Cell Distribution Width 17.6 % (11.6-14.8) H Platelet Count 193 K/UL (150-450) Mean Platelet Volume 6.0 FL (6.5-10.1) L Neutrophils (%) (Auto) % (45.0-75.0) Lymphocytes (%) (Auto) % (20.0-45.0) Monocytes (%) (Auto) % (1.0-10.0) Eosinophils (%) (Auto) % (0.0-3.0) Basophils (%) (Auto) % (0.0-2.0) Differential Total Cells Counted 100 Neutrophils % (Manual) 72 % (45-75) Lymphocytes % (Manual) 15 % (20-45) L Monocytes % (Manual) 7 % (1-10) Eosinophils % (Manual) 6 % (0-3) H Basophils % (Manual) 0 % (0-2) Band Neutrophils 0 % (0-8) Platelet Estimate Adequate Platelet Morphology Normal Hypochromasia 1+ Anisocytosis 1+ Sodium Level 141 MMOL/L (136-145) Potassium Level 3.4 MMOL/L (3.5-5.1) L Chloride Level 105 MMOL/L (98-107) Carbon Dioxide Level 29 MMOL/L (21-32) Anion Gap 8 mmol/L (5-15) Blood Urea Nitrogen 58 mg/dL (7-18) H Creatinine 2.8 MG/DL (0.55-1.30) H Estimat Glomerular Filtration Rate 22.0 mL/min (>60) Glucose Level 207 MG/DL (74-106) H Calcium Level 8.4 MG/DL (8.5-10.1) L Total Bilirubin 0.3 MG/DL (0.2-1.0) Aspartate Amino Transf (AST/SGOT) 38 U/L (15-37) H Alanine Aminotransferase (ALT/SGPT) 21 U/L (12-78) Alkaline Phosphatase 241 U/L (46-116) H Total Protein 7.2 G/DL (6.4-8.2) Albumin 1.4 G/DL (3.4-5.0) L Globulin 5.8 g/dL Albumin/Globulin Ratio 0.2 (1.0-2.7) L Current Medications Medications (Trade) Dose Ordered Sig/Leonel Route PRN Reason Start Time Stop Time Status Last Admin Dose Admin Acetaminophen (Tylenol) 650 mg Q4H PRN GT Mild Pain / fever 08/09/19 05:30 09/08/19 05:29 08/21/19 05:18 Al Hydroxide/Mg Hydroxide (Mylanta) 30 ml FOUR TIMES A DAY PRN GT constipation 08/09/19 06:00 09/08/19 05:29 Ascorbic Acid (Vitamin C) 500 mg DAILY GT 08/09/19 09:00 09/08/19 08:59 08/21/19 08:35 Atorvastatin Calcium (Lipitor) 40 mg BEDTIME GT 08/09/19 21:00 11/07/19 20:59 08/20/19 20:45 Chlorhexidine Gluconate (Felipa-Hex 2%) 1 applic DAILY@1999 TOPIC 08/15/19 20:00 11/13/19 19:59 08/20/19 20:45 Clonidine HCl (Catapres Tab) 0.1 mg Q4H PRN GT SBP>150 08/12/19 10:45 11/10/19 06:44 Dextrose (Dextrose 50%) 25 ml Q30M PRN IV Hypoglycemia 08/09/19 07:30 11/07/19 07:29 Dextrose (Dextrose 50%) 50 ml Q30M PRN IV Hypoglycemia 08/09/19 07:30 11/07/19 07:29 Epoetin Andreas (Epoetin Andreas(ESRD on dialysis)) 10,000 unit WED-WED-WED SUBQ 08/18/19 21:00 11/16/19 20:59 08/18/19 20:43 Heparin Sodium (Porcine) (Heparin Sod 1000 units/ml 10ml) 2,000 unit ONCE PRN IV HD USE 08/22/19 06:00 08/22/19 23:59 Heparin Sodium (Porcine) (Heparin) 1,000 unit POSTHD PRN INJ HD USE 08/22/19 06:00 08/22/19 23:59 Insulin Aspart (NovoLOG) Q6HR SUBQ 08/10/19 00:00 11/07/19 11:29 08/21/19 05:15 Lansoprazole (Prevacid) 30 mg DAILY GT 08/09/19 09:00 09/08/19 08:59 08/21/19 08:35 Loperamide HCl (Imodium) 2 mg Q4H PRN GT Diarrhea 08/09/19 08:00 09/08/19 07:59 Metoprolol Tartrate (Lopressor) 200 mg Q12HR GT 08/09/19 09:00 11/07/19 08:59 08/21/19 08:35 Minoxidil (Loniten) 5 mg DAILY GT 08/09/19 09:00 11/07/19 08:59 08/21/19 08:34 Multivitamins (Multivitamins W/ Minerals 15ml Liquid) 15 ml DAILY GT 08/09/19 09:00 09/08/19 08:59 08/21/19 08:35 Piperacillin Sod/ Tazobactam Sod 2.25 gm/Sodium Chloride 55 ml @ 110 mls/hr Q8H IV 08/17/19 16:00 08/22/19 23:59 08/21/19 08:34 Sodium Chloride 1,000 ml @ 500 mls/hr Q2H PRN IVLG sbp<90 during hd 08/22/19 06:00 08/22/19 23:59 Vitamin B Complex/ Vit C/Folic Acid (Nephrovite) 1 tab DAILY GT 08/09/19 09:00 09/08/19 08:59 08/21/19 08:35 Vitamin D (Vitamin D) 1,000 intlu DAILY GT 08/09/19 09:00 09/08/19 08:59 08/21/19 08:36 Zinc Oxide (Zinc Oxide) 1 applic BID TOPIC 08/10/19 18:00 11/08/19 17:59 08/21/19 08:36 Farnaz Lyle MD Aug 21, 2019 11:34
--- NOTE | 2019-08-21 11:43 | Hematology/Onc Progress Note ---
Assessment/Plan Assessment/Plan Assessment/recs # Leukocytosis - with multiple infections, VRE UTI --> wbc trend 33-->28-->25->23->22->23 --> on abx, linezolid and zosyn--> zosyn --> + blood cultures with coag neg staph likely contaminated --> as per id recs --> has ordered a flow cytometry (with pathology) --> does show increased nK cell activity --> JOURDAN 2 and bcr-abl labs ordered (these are send outs) # Anemia due to chronic disease/kidney disease as well, gi bleed + occult + noted --> was on iron in the past, now on hold --> has been started on epogen --> as per renal care --> egd done and shows gastritis --> on ppi --> egd showed gastritis, colo recently done --> hgb 9-->8.7 # Respiratory failure --> per pulm, s/p trach --> COVID 19 test negative x 2 # Dysphagia s/p gtube with nepro --> per gi # ESRD with r fem julito --> hd as per renal # Dvt ppx scds Appreciate consultation and matt Rn Subjective HEENT: Denies: no symptoms, eye pain, blurred vision, tearing, double vision, ear pain, ear discharge, nose pain, nose congestion, throat pain, throat swelling, mouth pain, mouth swelling, other Cardiovascular: Denies: no symptoms, chest pain, edema, irregular heart rate, lightheadedness, palpitations, syncope, other Respiratory: Denies: no symptoms, cough, shortness of breath, SOB with excertion, SOB at rest, sputum, wheezing, other Gastrointestinal/Abdominal: Denies: no symptoms, abdomen distended, abdominal pain, black stools, tarry stools, blood in stool, constipated, diarrhea, difficulty swallowing, nausea, poor appetite, poor fluid intake, rectal bleeding , vomiting, other Genitourinary: Denies: no symptoms, burning, discharge, frequency, flank pain, hematuria, incontinence, pain, urgency, other Neurologic/Psychiatric: Denies: no symptoms, anxiety, depressed, emotional problems, headache, numbness, paresthesia, pre-existing deficit, seizure, tingling, tremors, weakness, other Endocrine: Denies: no symptoms, excessive sweating, flushing, intolerance to cold, intolerance to heat, increased hunger, increased thirst, increased urine, unexplained weight gain, unexplained weight loss, other Hematologic/Lymphatic: Denies: no symptoms, anemia, easy bleeding, easy bruising, adenopathy, other Allergies: Coded Allergies: No Known Allergies (Unverified , 06/10/19) Subjective 08/15 meds noted, no bleeding, hgb 8.8, wbc 28, path flow pending 08/16 flow pending dw pathologist, results pending, wbc 25, hgb 9 08/17 labs reviewed, meds reviewed, meds noted, no night sweats 08/19 remains obtunded, on vent/trach, no bleeding wbc 21.7 08/20 labs have been reviewed, no bleeding, wbc still elev, path reviewed Objective Objective Current Medications Medications (Trade) Dose Ordered Sig/Leonel Route PRN Reason Start Time Stop Time Status Last Admin Dose Admin Acetaminophen (Tylenol) 650 mg Q4H PRN GT Mild Pain / fever 08/09/19 05:30 09/08/19 05:29 08/21/19 05:18 Al Hydroxide/Mg Hydroxide (Mylanta) 30 ml FOUR TIMES A DAY PRN GT constipation 08/09/19 06:00 09/08/19 05:29 Ascorbic Acid (Vitamin C) 500 mg DAILY GT 08/09/19 09:00 09/08/19 08:59 08/21/19 08:35 Atorvastatin Calcium (Lipitor) 40 mg BEDTIME GT 08/09/19 21:00 11/07/19 20:59 08/20/19 20:45 Chlorhexidine Gluconate (Felipa-Hex 2%) 1 applic DAILY@1999 TOPIC 08/15/19 20:00 11/13/19 19:59 08/20/19 20:45 Clonidine HCl (Catapres Tab) 0.1 mg Q4H PRN GT SBP>150 08/12/19 10:45 11/10/19 06:44 Dextrose (Dextrose 50%) 25 ml Q30M PRN IV Hypoglycemia 08/09/19 07:30 11/07/19 07:29 Dextrose (Dextrose 50%) 50 ml Q30M PRN IV Hypoglycemia 08/09/19 07:30 11/07/19 07:29 Epoetin Andreas (Epoetin Anderas(ESRD on dialysis)) 10,000 unit WED-WED-WED SUBQ 08/18/19 21:00 11/16/19 20:59 08/18/19 20:43 Heparin Sodium (Porcine) (Heparin Sod 1000 units/ml 10ml) 2,000 unit ONCE PRN IV HD USE 08/22/19 06:00 08/22/19 23:59 Heparin Sodium (Porcine) (Heparin) 1,000 unit POSTHD PRN INJ HD USE 08/22/19 06:00 08/22/19 23:59 Insulin Aspart (NovoLOG) Q6HR SUBQ 08/10/19 00:00 11/07/19 11:29 08/21/19 05:15 Lansoprazole (Prevacid) 30 mg DAILY GT 08/09/19 09:00 09/08/19 08:59 08/21/19 08:35 Loperamide HCl (Imodium) 2 mg Q4H PRN GT Diarrhea 08/09/19 08:00 09/08/19 07:59 Metoprolol Tartrate (Lopressor) 200 mg Q12HR GT 08/09/19 09:00 11/07/19 08:59 08/21/19 08:35 Minoxidil (Loniten) 5 mg DAILY GT 08/09/19 09:00 11/07/19 08:59 08/21/19 08:34 Multivitamins (Multivitamins W/ Minerals 15ml Liquid) 15 ml DAILY GT 08/09/19 09:00 09/08/19 08:59 08/21/19 08:35 Piperacillin Sod/ Tazobactam Sod 2.25 gm/Sodium Chloride 55 ml @ 110 mls/hr Q8H IV 08/17/19 16:00 08/22/19 23:59 08/21/19 08:34 Sodium Chloride 1,000 ml @ 500 mls/hr Q2H PRN IVLG sbp<90 during hd 08/22/19 06:00 08/22/19 23:59 Vitamin B Complex/ Vit C/Folic Acid (Nephrovite) 1 tab DAILY GT 08/09/19 09:00 09/08/19 08:59 08/21/19 08:35 Vitamin D (Vitamin D) 1,000 intlu DAILY GT 7/1/20 09:00 09/08/19 08:59 08/21/19 08:36 Zinc Oxide (Zinc Oxide) 1 applic BID TOPIC 08/10/19 18:00 11/08/19 17:59 08/21/19 08:36 Last 24 Hour Vital Signs Date Time Temp Pulse Resp B/P (MAP) Pulse Ox O2 Delivery O2 Flow Rate FiO2 08/21/19 08:35 68 151/74 08/21/19 08:34 151/74 08/21/19 08:00 98.4 68 20 151/74 (99) 100 08/21/19 08:00 25 08/21/19 07:10 64 16 24 08/21/19 04:00 25 08/21/19 04:00 98.7 75 20 139/65 (89) 100 08/21/19 04:00 Mechanical Ventilator Mechanical Ventilator 08/21/19 03:31 74 21 24 08/21/19 03:30 74 08/21/19 00:00 Mechanical Ventilator Mechanical Ventilator 08/21/19 00:00 74 08/21/19 00:00 98.8 77 20 144/77 (99) 100 08/20/19 23:49 72 18 24 08/20/19 20:46 78 150/78 08/20/19 20:00 Mechanical Ventilator Mechanical Ventilator 08/20/19 20:00 25 08/20/19 20:00 99.0 78 22 150/78 (102) 100 08/20/19 19:21 76 17 24 08/20/19 19:08 74 08/20/19 17:48 71 08/20/19 16:00 98.4 69 22 136/62 (86) 100 08/20/19 16:00 Mechanical Ventilator Mechanical Ventilator 08/20/19 16:00 25 08/20/19 15:19 69 18 24 08/20/19 12:00 70 08/20/19 12:00 25 08/20/19 12:00 Mechanical Ventilator Mechanical Ventilator 08/20/19 12:00 98.6 68 22 125/55 (78) 100 08/20/19 10:51 68 18 24 08/20/19 08:40 98.6 08/20/19 08:10 92 152/67 08/20/19 08:10 152/67 08/20/19 08:00 25 08/20/19 08:00 100.0 92 22 152/67 (95) 100 08/20/19 08:00 Mechanical Ventilator Mechanical Ventilator 08/20/19 08:00 94 08/20/19 07:15 93 24 24 08/20/19 04:00 Mechanical Ventilator Mechanical Ventilator 08/20/19 04:00 97.9 86 22 144/59 (87) 100 08/20/19 04:00 25 08/20/19 03:50 86 08/20/19 03:30 86 24 24 08/20/19 00:00 Mechanical Ventilator Mechanical Ventilator 08/20/19 00:00 98.8 88 22 131/47 (75) 100 08/19/19 23:53 89 08/19/19 23:30 86 22 24 08/19/19 21:42 89 130/77 08/19/19 20:00 25 08/19/19 20:00 97.3 90 22 129/70 (89) 100 08/19/19 20:00 Mechanical Ventilator Mechanical Ventilator 08/19/19 19:58 95 08/19/19 19:30 91 27 24 08/19/19 16:00 25 08/19/19 16:00 Mechanical Ventilator Mechanical Ventilator 08/19/19 16:00 98.1 74 18 147/65 (92) 100 08/19/19 16:00 76 08/19/19 15:16 73 18 25 08/19/19 12:00 98.2 75 18 126/66 (86) 100 08/19/19 12:00 Mechanical Ventilator Mechanical Ventilator 08/19/19 12:00 25 08/19/19 12:00 72 Intake and Output 08/20/19 08/21/19 18:59 06:59 Intake Total 490 ml 630 ml Output Total 165 ml Balance 325 ml 630 ml Free Water 120 ml 90 ml IV Total 55 ml Tube Feeding 315 ml 540 ml Output Urine Total 125 ml Stool Total 40 ml # Bowel Movements 1 Labs Test 08/18/19 12:50 08/18/19 17:35 08/18/19 17:43 08/18/19 23:19 POC Whole Blood Glucose 143 MG/DL (74-106) 170 MG/DL (74-106) Test 08/19/19 04:55 08/19/19 05:16 08/19/19 11:37 08/19/19 17:37 White Blood Count 20.6 K/UL (4.8-10.8) Red Blood Count 3.13 M/UL (4.70-6.10) Hemoglobin 8.5 G/DL (14.2-18.0) Hematocrit 27.2 % (42.0-52.0) Mean Corpuscular Volume 87 FL (80-99) Mean Corpuscular Hemoglobin 27.3 PG (27.0-31.0) Mean Corpuscular Hemoglobin Concent 31.4 G/DL (32.0-36.0) Red Cell Distribution Width 17.4 % (11.6-14.8) Platelet Count 285 K/UL (150-450) Mean Platelet Volume 5.2 FL (6.5-10.1) Neutrophils (%) (Auto) % (45.0-75.0) Lymphocytes (%) (Auto) % (20.0-45.0) Monocytes (%) (Auto) % (1.0-10.0) Eosinophils (%) (Auto) % (0.0-3.0) Basophils (%) (Auto) % (0.0-2.0) Differential Total Cells Counted 100 Neutrophils % (Manual) 78 % (45-75) Lymphocytes % (Manual) 10 % (20-45) Monocytes % (Manual) 5 % (1-10) Eosinophils % (Manual) 7 % (0-3) Basophils % (Manual) 0 % (0-2) Band Neutrophils 0 % (0-8) Platelet Estimate Adequate Platelet Morphology Normal Hypochromasia 1+ Anisocytosis 1+ Sodium Level 137 MMOL/L (136-145) Potassium Level 2.8 MMOL/L (3.5-5.1) Chloride Level 102 MMOL/L (98-107) Carbon Dioxide Level 24 MMOL/L (21-32) Anion Gap 12 mmol/L (5-15) Blood Urea Nitrogen 77 mg/dL (7-18) Creatinine 3.1 MG/DL (0.55-1.30) Estimat Glomerular Filtration Rate 19.6 mL/min (>60) Glucose Level 184 MG/DL (74-106) Calcium Level 8.7 MG/DL (8.5-10.1) Total Bilirubin 0.4 MG/DL (0.2-1.0) Aspartate Amino Transf (AST/SGOT) 25 U/L (15-37) Alanine Aminotransferase (ALT/SGPT) 18 U/L (12-78) Alkaline Phosphatase 196 U/L (46-116) Total Protein 7.3 G/DL (6.4-8.2) Albumin 1.4 G/DL (3.4-5.0) Globulin 5.9 g/dL Albumin/Globulin Ratio 0.2 (1.0-2.7) POC Whole Blood Glucose 177 MG/DL (74-106) 161 MG/DL (74-106) 151 MG/DL (74-106) Test 08/19/19 23:12 08/20/19 01:30 08/20/19 05:27 08/20/19 05:45 Stool Occult Blood Positive (NEGATIVE) White Blood Count 21.7 K/UL (4.8-10.8) Red Blood Count 3.04 M/UL (4.70-6.10) Hemoglobin 8.2 G/DL (14.2-18.0) Hematocrit 26.3 % (42.0-52.0) Mean Corpuscular Volume 87 FL (80-99) Mean Corpuscular Hemoglobin 27.0 PG (27.0-31.0) Mean Corpuscular Hemoglobin Concent 31.1 G/DL (32.0-36.0) Red Cell Distribution Width 17.7 % (11.6-14.8) Platelet Count 210 K/UL (150-450) Mean Platelet Volume 5.5 FL (6.5-10.1) Neutrophils (%) (Auto) % (45.0-75.0) Lymphocytes (%) (Auto) % (20.0-45.0) Monocytes (%) (Auto) % (1.0-10.0) Eosinophils (%) (Auto) % (0.0-3.0) Basophils (%) (Auto) % (0.0-2.0) Differential Total Cells Counted 100 Neutrophils % (Manual) 87 % (45-75) Lymphocytes % (Manual) 8 % (20-45) Monocytes % (Manual) 2 % (1-10) Eosinophils % (Manual) 3 % (0-3) Basophils % (Manual) 0 % (0-2) Band Neutrophils 0 % (0-8) Platelet Estimate Adequate Platelet Morphology Normal Polychromasia 1+ Hypochromasia 1+ Anisocytosis 1+ Sodium Level 141 MMOL/L (136-145) Potassium Level 3.8 MMOL/L (3.5-5.1) Chloride Level 104 MMOL/L (98-107) Carbon Dioxide Level 29 MMOL/L (21-32) Anion Gap 8 mmol/L (5-15) Blood Urea Nitrogen 47 mg/dL (7-18) Creatinine 2.3 MG/DL (0.55-1.30) Estimat Glomerular Filtration Rate 27.6 mL/min (>60) Glucose Level 222 MG/DL (74-106) Calcium Level 8.7 MG/DL (8.5-10.1) Test 08/20/19 12:12 08/20/19 17:18 08/20/19 23:30 08/21/19 05:12 POC Whole Blood Glucose 158 MG/DL (74-106) 168 MG/DL (74-106) Test 08/21/19 09:00 White Blood Count 22.7 K/UL (4.8-10.8) Red Blood Count 3.09 M/UL (4.70-6.10) Hemoglobin 8.4 G/DL (14.2-18.0) Hematocrit 27.1 % (42.0-52.0) Mean Corpuscular Volume 88 FL (80-99) Mean Corpuscular Hemoglobin 27.2 PG (27.0-31.0) Mean Corpuscular Hemoglobin Concent 31.0 G/DL (32.0-36.0) Red Cell Distribution Width 17.6 % (11.6-14.8) Platelet Count 193 K/UL (150-450) Mean Platelet Volume 6.0 FL (6.5-10.1) Neutrophils (%) (Auto) % (45.0-75.0) Lymphocytes (%) (Auto) % (20.0-45.0) Monocytes (%) (Auto) % (1.0-10.0) Eosinophils (%) (Auto) % (0.0-3.0) Basophils (%) (Auto) % (0.0-2.0) Differential Total Cells Counted 100 Neutrophils % (Manual) 72 % (45-75) Lymphocytes % (Manual) 15 % (20-45) Monocytes % (Manual) 7 % (1-10) Eosinophils % (Manual) 6 % (0-3) Basophils % (Manual) 0 % (0-2) Band Neutrophils 0 % (0-8) Platelet Estimate Adequate Platelet Morphology Normal Hypochromasia 1+ Anisocytosis 1+ Sodium Level 141 MMOL/L (136-145) Potassium Level 3.4 MMOL/L (3.5-5.1) Chloride Level 105 MMOL/L (98-107) Carbon Dioxide Level 29 MMOL/L (21-32) Anion Gap 8 mmol/L (5-15) Blood Urea Nitrogen 58 mg/dL (7-18) Creatinine 2.8 MG/DL (0.55-1.30) Estimat Glomerular Filtration Rate 22.0 mL/min (>60) Glucose Level 207 MG/DL (74-106) Calcium Level 8.4 MG/DL (8.5-10.1) Total Bilirubin 0.3 MG/DL (0.2-1.0) Aspartate Amino Transf (AST/SGOT) 38 U/L (15-37) Alanine Aminotransferase (ALT/SGPT) 21 U/L (12-78) Alkaline Phosphatase 241 U/L (46-116) Total Protein 7.2 G/DL (6.4-8.2) Albumin 1.4 G/DL (3.4-5.0) Globulin 5.8 g/dL Albumin/Globulin Ratio 0.2 (1.0-2.7) Height (Feet): 6 Height (Inches): 7 Weight (Pounds): 166 Objective Physical Exam General Appearance: nad, Chronically Ill Head: normocephalic Eyes: right eye PERRL - Will not open left eye ENT: moist mucus membranes Neck: other - submandibular mass R, fairly rigid with resistance to rotation to L, tracheotomy Respiratory: decreased breath sounds, crackles, other - pacemaker Cardiovascular: regular rate, rhythm, edema - anasarca Gastrointestinal: non tender, distended, other - G tube Genitourinary: other Musculoskeletal: other - Contractures all extremities Neurologic: sensory intact, motor weakness, responsive Psychiatric: other Skin: Decubitus/Ulcer - Stage III right elbow, stage III left elbow, stage II sacrum, stage III scrotum, warm/dry Fitz Campos MD Aug 21, 2019 11:43
--- NOTE | 2019-08-21 11:49 | NUR ---
*-* INSURANCE *-* UPDATED CLINICALS AND REVIEWS HAVE BEEN FAXED TO: [facility] P:[phone] F:[phone]
--- NOTE | 2019-08-21 12:00 | NUR ---
NURSE NOTES: BS of 177 noted. Administered Novolog as ordered. Will continue plan of care.
--- NOTE | 2019-08-21 12:40 | Surgery Progress Note ---
Surgery Progress Note Subjective Procedure Performed Right femoral temporary hemodialysis catheter insertion Additional Comments persistent leukocytosis exam stable HD per renal pending heme results Objective Last 24 Hour Vital Signs Date Time Temp Pulse Resp B/P (MAP) Pulse Ox O2 Delivery O2 Flow Rate FiO2 08/21/19 12:00 62 08/21/19 11:00 62 15 24 08/21/19 08:35 68 151/74 08/21/19 08:34 151/74 08/21/19 08:00 63 08/21/19 08:00 98.4 68 20 151/74 (99) 100 08/21/19 08:00 25 08/21/19 07:10 64 16 24 08/21/19 04:00 25 08/21/19 04:00 98.7 75 20 139/65 (89) 100 08/21/19 04:00 Mechanical Ventilator Mechanical Ventilator 08/21/19 03:31 74 21 24 08/21/19 03:30 74 08/21/19 00:00 Mechanical Ventilator Mechanical Ventilator 08/21/19 00:00 74 08/21/19 00:00 98.8 77 20 144/77 (99) 100 08/20/19 23:49 72 18 24 08/20/19 20:46 78 150/78 08/20/19 20:00 Mechanical Ventilator Mechanical Ventilator 08/20/19 20:00 25 08/20/19 20:00 99.0 78 22 150/78 (102) 100 08/20/19 19:21 76 17 24 08/20/19 19:08 74 08/20/19 17:48 71 08/20/19 16:00 98.4 69 22 136/62 (86) 100 08/20/19 16:00 Mechanical Ventilator Mechanical Ventilator 08/20/19 16:00 25 08/20/19 15:19 69 18 24 I&O Intake and Output 08/20/19 08/21/19 19:00 07:00 Intake Total 505 ml 630 ml Output Total 165 ml 200 ml Balance 340 ml 430 ml Free Water 90 ml 90 ml IV Total 55 ml Tube Feeding 360 ml 540 ml Output Urine Total 125 ml 200 ml Stool Total 40 ml # Bowel Movements 1 3 Dressing: other Wound: other Drains: other Cardiovascular: RSR Respiratory: decreased breath sounds Abdomen: soft, non-tender, present bowel sounds Extremities: edema, no tenderness, no cyanosis Laboratory Tests Test 08/20/19 17:18 08/20/19 23:30 08/21/19 05:12 08/21/19 09:00 POC Whole Blood Glucose 168 MG/DL (74-106) H Pending Pending White Blood Count 22.7 K/UL (4.8-10.8) *H Red Blood Count 3.09 M/UL (4.70-6.10) L Hemoglobin 8.4 G/DL (14.2-18.0) L Hematocrit 27.1 % (42.0-52.0) L Mean Corpuscular Volume 88 FL (80-99) Mean Corpuscular Hemoglobin 27.2 PG (27.0-31.0) Mean Corpuscular Hemoglobin Concent 31.0 G/DL (32.0-36.0) L Red Cell Distribution Width 17.6 % (11.6-14.8) H Platelet Count 193 K/UL (150-450) Mean Platelet Volume 6.0 FL (6.5-10.1) L Neutrophils (%) (Auto) % (45.0-75.0) Lymphocytes (%) (Auto) % (20.0-45.0) Monocytes (%) (Auto) % (1.0-10.0) Eosinophils (%) (Auto) % (0.0-3.0) Basophils (%) (Auto) % (0.0-2.0) Differential Total Cells Counted 100 Neutrophils % (Manual) 72 % (45-75) Lymphocytes % (Manual) 15 % (20-45) L Monocytes % (Manual) 7 % (1-10) Eosinophils % (Manual) 6 % (0-3) H Basophils % (Manual) 0 % (0-2) Band Neutrophils 0 % (0-8) Platelet Estimate Adequate Platelet Morphology Normal Hypochromasia 1+ Anisocytosis 1+ Sodium Level 141 MMOL/L (136-145) Potassium Level 3.4 MMOL/L (3.5-5.1) L Chloride Level 105 MMOL/L (98-107) Carbon Dioxide Level 29 MMOL/L (21-32) Anion Gap 8 mmol/L (5-15) Blood Urea Nitrogen 58 mg/dL (7-18) H Creatinine 2.8 MG/DL (0.55-1.30) H Estimat Glomerular Filtration Rate 22.0 mL/min (>60) Glucose Level 207 MG/DL (74-106) H Calcium Level 8.4 MG/DL (8.5-10.1) L Total Bilirubin 0.3 MG/DL (0.2-1.0) Aspartate Amino Transf (AST/SGOT) 38 U/L (15-37) H Alanine Aminotransferase (ALT/SGPT) 21 U/L (12-78) Alkaline Phosphatase 241 U/L (46-116) H Total Protein 7.2 G/DL (6.4-8.2) Albumin 1.4 G/DL (3.4-5.0) L Globulin 5.8 g/dL Albumin/Globulin Ratio 0.2 (1.0-2.7) L Test 08/21/19 12:11 POC Whole Blood Glucose Pending Plan Problems: (1) Anemia (2) Hyponatremia (3) Leukocytosis Assessment & Plan: Tracheostomy, left chest pacemaker are again demonstrated. There is bilateral interstitial and airspace disease and bilateral pleural fluid again demonstrated. This appears more severe than on the prior study. Bilateral interstitial and airspace infiltrates versus edema. Bilateral pleural effusions Leukocytosis, anemia, tachycardia, abnormal labs. Wound evaluated and likely etiology of patient's sepsis. Leukocytosis etiology work-up antibiotics per infectious disease Appreciate nephrology input transfuse with dialysis We will follow with recommendations thank you allowing participation's care plan HD access temp HD discussed with medical teams line okay HD as per renal persistent leukocytosis flow cyto noted (4) Ventilator dependent (5) Right lower lobe pneumonia (6) Hypokalemia (7) Hyperkalemia (8) Anasarca (9) Decubitus skin ulcer Assessment & Plan: pt presented on admission with generalized edemae.Skin assessed under tracheostomy and no areas of concerns noted. GT Insertion is marginally erythematous with small amt slough at stoma. Unstageable Pressure Injury R elbow. Base of wound is 100% yellow slough, Borders are erythematous. Wound oozing small amt haemopurulent exudate.Darker skin tone without elevation in skin temp or erythema periwound. Pt's penis and scrotum are grossly edematous and enlarged and weeping serous exudate from numerous sites both from penis and scrotum. Two small open wounds noted at base of at base of shaft of penis ,and contreras aspect of scrotum. Both wounds oozing large amt sanguineous and serosanguineous exudate. Multiple open wounds with Biofilm at base of each wounds noted to contreras/lateral,inferior and posterior aspects of scrotum. These wounds noted to be oozing moderate amts of serosanguineous exudate. Hypertrophic scar with scattered areas of hyperpigmentation noted to Sacrum. DTPI noted to L Buttocks (L)7cm x (W)9cm. Base of wound is purple and indurated.Darker skin tone without erythema, induration or fluctuance R and L ischial tuberosities. Both heels are boggy with non-blanchable erythema. Tx.Plan: Cleanse wound R elbow with Saline. Apply TheraHoney, Apply Moisture Barrier Paste periwound. Cover with Optifoam drsg.Change Daily and prn. Wash GT site with soap and water.Pat dry. Apply Zinc Oxide Paste to GT site Daily. Leave Open to Air. Apply Zinc Oxide Paste to entire Scrotum, Place ABD pads to R and L lateral, and posterior aspects of scrotum TWICE daily. Apply Cavilon Skin Barrier to malleoli and both Heels. Cover each site with Optifoam drsgs. Change every 7 days and prn. Reposition at least every 2hours or as tolerated. Off-load heels with Pillows. APM/BECCA Mattress overlay. (10) Malnutrition Assessment & Plan: DAILY ESTIMATED NEEDS: Needs based on Renal, critical care, wound/ 61kg 22-28 kcals/kg 2343-8592 total kcals 1-1.25 (increase w/ renal improvement) g protein/kg 61-76 g total protein 20-25 mL/kg 7999-2333 total fluid mLs NUTRITION DIAGNOSIS: * Swallowing difficulty R/T respiratory failure, dysphagia as evidenced by trach/vent dep, PEG dep * Increased kcal/prot needs R/T wound healing as evidenced by admitted w/ multiple pressure injuries per photos, pending eval. CURRENT TF:Nepro @ 45ml/hr x 24 hrs ENTERAL NUTRITION RECOMMENDATIONS: NEPRO to 45ml/hr x 20 hrs to provide 900ml, 1620kcal, 73g prot, 654ml free water * Maintain current TF * HOB over 30 degrees/ water flush per MD ADDITIONAL RECOMMENDATIONS: * Per SNF: HT=63" HM=615 lbs (Vs EMR wt of 165lbs) -> obtain re-calibrated bedscale wt * Wound healing: add Nephrovite x 1 + Vit C 250mg QD add Garo 1pkt BID via GT * Monitor renal fxn and lytes, check phos level (11) Uremia (12) CKD (chronic kidney disease) stage 5, GFR less than 15 ml/min (13) Colon distention Assessment & Plan: discussed with GI likely functional as having lots of loose bm rectal tube kub f/u Marked distention of the sigmoid colon. 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 No evidence of bowel wall thickening or pneumatosis 12 mm focus of contrast enhancement in the right pectineus muscle. While nonspecific in appearance, appearance raises concern for a possible pseudoaneurysm. Ill- defined thickening of the pectus medius muscle could indicate some intramuscular hemorrhage. The above findings were phoned to Dr. Urias at the time of interpretation Large bilateral pleural effusions Hazy pulmonary parenchymal opacities as well as dense consolidative opacities most likely represent pulmonary edema, but could represent pneumonia Evidence of anasarca elsewhere, with generalized edema of the subcutaneous fat Bladder wall thickening, raises concern for cystitis. Avalos catheter in place Colonic diverticulosis. No evidence of diverticulitis. Tracheostomy Pacemaker Gastrostomy Jonathan Urias Aug 21, 2019 12:40
--- NOTE | 2019-08-21 13:00 | NUR ---
NURSE NOTES: The patient is stable without acute distress or shortness of breath. Tolerating vent setting and G tube feeding well. Will continue plan of care.
--- NOTE | 2019-08-21 15:00 | NUR ---
NURSE NOTES: Bed bath given to the patient. Tolerated well. Stable vital signs noted. Will continue plan of care.
--- NOTE | 2019-08-21 16:35 | NUR ---
CASE MANAGEMENT: REVIEW SI: RIGHT LOWER LOBE PNA . ESRD on HD TUNNEL CATH PLACEMENT T 98.4 HR 66 RR 20 BP 149/73 SAT 100% MECH VENT FIO2 25 WBC 22.7 H/H 8.4/27.1 K 3.4 IS: ZOSYN IV Q12HR EPOETIN SUBQ QMWF HEPARIN IV PRN HD HD NEEDED PATIENT ADMITTED TO [facility]EP [facility] [place] [facility] [place]
--- NOTE | 2019-08-21 18:00 | NUR ---
NURSE NOTES: The patient is stable without acute distress or shortness of breath. BS of 175 noted. Insulin covered as ordered. Will closely monitor the patient. Will continue plan of care.
--- NOTE | 2019-08-21 19:05 | NUR ---
HAND-OFF: Report given to TAMICA Worley. The patient is stable at this time. Endorsed plan of care.
--- NOTE | 2019-08-21 19:08 | NUR ---
RESPIRATORY NOTE: PT RECEIVED STABLE ON CURRENT RESPIRATORY ORDERS: AC/VC 15, 450, 24%, +5. ALARMS ARE ON AND AUDIBLE. SX TUBING AND VENTILATOR CIRCUIT ARE SECURE AND OUT OF THE WAY. AIRWAY IS SECURE, MIDLINE AND PATENT. NO S/S OF RESPIRATORY DISTRESS NOTED AT THIS TIME. WILL CONTINUE TO MONITOR.
--- NOTE | 2019-08-21 19:25 | NUR ---
NURSE NOTES: Received pt's report from TAMICA Yu. Pt is laying on the bed. No s/s of respiratory distress. SpO2 100%, RR 21. Pt is on vent per prescribed setting. Pt is open eyes, no tracking. Pt is on urinary catheter, nicole color noted. Pt is on G-tube, Nepro 45ml/hr running. No residual. IV on left hand, intact and patent, TKO noted. Call-light within reach. Bed is low and locked, pt is on semi-rivera position. Will continue to monitor with plan of care.
[2019-08-21] MEDS: Dyna-Hex 2% Top Sol 2oz TOPIC SCH (20:25)
[2019-08-21] MEDS: Atorvastatin 20mg tab GT SCH (20:26)
[2019-08-21] MEDS: Epoetin Alfa-EPBX(ESRD on dialysis)10,000 unit/ml vial SUBQ SCH (20:26)
[2019-08-22] VITALS (7 sets, daily range): BP systolic 138–180; BP diastolic 62–80
[2019-08-22] MEDS: Piperacillin/Tazobactam 2.25 GM in NS 55 ML IV SCH ×3 (00:35→17:04)
[2019-08-22] MEDS: NovoLOG Insulin Flexpen SUBQ SCH ×4 (00:45→17:54)
[2019-08-22 05:22] LABS: HEMATOCRIT 24.1 % (42.0-52.0); HEMOGLOBIN 7.6 G/DL (14.2-18.0); MEAN CORPUSCULAR VOLUME 86 FL (80-99); PLATELET COUNT 204 K/UL (150-450); RED BLOOD COUNT 2.79 M/UL (4.70-6.10); RED CELL DISTRIBUTION WIDTH 17.6 % (11.6-14.8)
[2019-08-22 05:37] LABS: ANION GAP 10 mmol/L (5-15); BLOOD UREA NITROGEN 65 mg/dL (7-18); CALCIUM 8.2 MG/DL (8.5-10.1); CARBON DIOXIDE 27 MMOL/L (21-32); CHLORIDE 104 MMOL/L (98-107); POTASSIUM 3.4 MMOL/L (3.5-5.1); SODIUM 141 MMOL/L (136-145)
[2019-08-22 05:40] LABS: WHITE BLOOD COUNT 24.1 K/UL (4.8-10.8)
[2019-08-22 05:52] LABS: PHOSPHORUS 0.9 MG/DL (2.5-4.9)
[2019-08-22] MEDS ORDERED: Heparin 1000 units/ml 1ml Vial INJ PRN (06:00)
[2019-08-22] MEDS ORDERED: Heparin Sod 1000 units/ml 10ml IV PRN (06:00)
--- NOTE | 2019-08-22 07:30 | NUR ---
NURSE NOTES: Received report from TAMICA Worley. Pt in bed awake and obtunded and responding to tactile stimuli. The patient is V-paced and SR of 60s on the vender. The patient is trach'ed and vented on following ventilator setting and oxygen saturation is 100%: Portex 7, AC 15, TV 450, FiO2 25%, PEEP 5. The patient's G-tube that is intact and patent and running Nepro @45mL/hr and no residual noted. R femoral Rancho cath for HD access and dressing changed on 08/19/2019. Skin issue noted and dressing intact. The patient has IV on L hand 22G that is intact and patent. Noted diarrhea. The patient's bed in the lowest position, call light in reach, and fall and aspiration precaution reinforced. Will continue plan of care.
--- NOTE | 2019-08-22 07:30 | NUR ---
HAND-OFF: Report given to TAMICA Madsen. Endorsed plan of care.
--- NOTE | 2019-08-22 07:55 | General Progress Note ---
Assessment/Plan Assessment/Plan: IMPRESSION: 1. anemia. 2. GI bleed. 3. Leukocytosis. 4. Probable sepsis. + BCX 5. Acute on chronic renal failure. 6. Hyponatremia. 7. Severe protein-calorie malnutrition. 8. Significantly elevated C-reactive protein concerning for infectious etiology. 9. Tracheostomy, G-tube. 10. Ventilator dependence. 11. anasarca with bilateral pleural effusion 12. Hematuria PLAN consideer LTAC care noted on vent surgical follow up monitor labs rate control monitor renal function: HD iv antibiotics care noted and reviewed remains ill difficult to place with need for HD and vent unstable impression, plan, and exam edited and reviewed in detail care discussed with RN Subjective Allergies: Coded Allergies: No Known Allergies (Unverified , 06/10/19) Subjective remains ill on vent on HD + hematuria and some rectal bleeding Objective Last 24 Hour Vital Signs Date Time Temp Pulse Resp B/P (MAP) Pulse Ox O2 Delivery O2 Flow Rate FiO2 08/22/19 04:00 Mechanical Ventilator Mechanical Ventilator 08/22/19 04:00 24 08/22/19 04:00 98.1 78 21 151/75 (100) 100 08/22/19 03:42 76 08/22/19 03:00 76 19 24 08/22/19 00:00 Mechanical Ventilator Mechanical Ventilator 08/22/19 00:00 24 08/22/19 00:00 99.2 67 20 144/64 (90) 100 08/22/19 00:00 67 08/21/19 22:48 66 19 24 08/21/19 20:26 72 159/68 08/21/19 20:25 72 22 159/68 (98) 100 08/21/19 20:00 98.5 73 21 152/66 (94) 100 08/21/19 20:00 24 08/21/19 20:00 Mechanical Ventilator Mechanical Ventilator 08/21/19 19:09 72 08/21/19 19:08 76 20 24 08/21/19 16:00 Mechanical Ventilator Mechanical Ventilator 08/21/19 16:00 97.9 66 20 130/86 (101) 100 08/21/19 16:00 25 08/21/19 16:00 64 08/21/19 15:10 62 15 24 08/21/19 12:00 98.4 66 20 149/73 (98) 100 08/21/19 12:00 25 08/21/19 12:00 62 08/21/19 12:00 Mechanical Ventilator Mechanical Ventilator 08/21/19 11:00 62 15 24 08/21/19 08:35 68 151/74 08/21/19 08:34 151/74 08/21/19 08:00 63 08/21/19 08:00 98.4 68 20 151/74 (99) 100 08/21/19 08:00 Mechanical Ventilator Mechanical Ventilator 08/21/19 08:00 25 Intake and Output 08/21/19 08/22/19 19:00 07:00 Intake Total 735 ml 645 ml Output Total 350 ml 400 ml Balance 385 ml 245 ml Free Water 150 ml 50 ml IV Total 55 ml Tube Feeding 585 ml 540 ml Output Urine Total 300 ml 300 ml Stool Total 50 ml 100 ml Laboratory Tests 08/21/19 09:00: White Blood Count 22.7*H, Red Blood Count 3.09L, Hemoglobin 8.4L, Hematocrit 27.1L, Mean Corpuscular Volume 88, Mean Corpuscular Hemoglobin 27.2, Mean Corpuscular Hemoglobin Concent 31.0L, Red Cell Distribution Width 17.6H, Platelet Count 193, Mean Platelet Volume 6.0L, Neutrophils (%) (Auto) , Lymphocytes (%) (Auto) , Monocytes (%) (Auto) , Eosinophils (%) (Auto) , Basophils (%) (Auto) , Differential Total Cells Counted 100, Neutrophils % ( Manual) 72, Lymphocytes % (Manual) 15L, Monocytes % (Manual) 7, Eosinophils % ( Manual) 6H, Basophils % (Manual) 0, Band Neutrophils 0, Platelet Estimate Adequate, Platelet Morphology Normal, Hypochromasia 1+, Anisocytosis 1+, Sodium Level 141, Potassium Level 3.4L, Chloride Level 105, Carbon Dioxide Level 29, Anion Gap 8, Blood Urea Nitrogen 58H, Creatinine 2.8H, Estimat Glomerular Filtration Rate 22.0, Glucose Level 207H, Calcium Level 8.4L, Total Bilirubin 0.3, Aspartate Amino Transf (AST/SGOT) 38H, Alanine Aminotransferase (ALT/SGPT) 21, Alkaline Phosphatase 241H, Total Protein 7.2, Albumin 1.4L, Globulin 5.8, Albumin/Globulin Ratio 0.2L 08/21/19 12:11: POC Whole Blood Glucose [Pending] 08/21/19 18:01: POC Whole Blood Glucose [Pending] 08/22/19 03:55: White Blood Count 24.1*H, Red Blood Count 2.79L, Hemoglobin 7.6L, Hematocrit 24.1L, Mean Corpuscular Volume 86, Mean Corpuscular Hemoglobin 27.2, Mean Corpuscular Hemoglobin Concent 31.5L, Red Cell Distribution Width 17.6H, Platelet Count 204, Mean Platelet Volume 6.5, Neutrophils (%) (Auto) , Lymphocytes (%) (Auto) , Monocytes (%) (Auto) , Eosinophils (%) (Auto) , Basophils (%) (Auto) , Neutrophils % (Manual) [Pending], Lymphocytes % (Manual) [Pending], Platelet Estimate [Pending], Platelet Morphology [Pending], Sodium Level 141, Potassium Level 3.4L, Chloride Level 104, Carbon Dioxide Level 27, Anion Gap 10, Blood Urea Nitrogen 65H, Creatinine 3.0H, Estimat Glomerular Filtration Rate 20.3, Glucose Level 167H, Calcium Level 8.2L, Phosphorus Level 0.9*L Height (Feet): 6 Height (Inches): 7 Weight (Pounds): 166 Objective GENERAL: Ill-appearing male, chronically debilitated. HEENT: Tracheostomy in midline. Questionable fullness in the submandibular region. LUNGS: Coarse breath sounds. reduced breath sounds CARDIAC: S1, S2. Regular rate and rhythm. ABDOMEN: Soft. G-tube. EXTREMITIES: With noted edema. NEUROLOGICAL: Poorly responsive, weak diffusely. Kain Ramirez MD Aug 22, 2019 07:55
[2019-08-22] MEDS: Metoprolol Tartrate 100mg tab GT SCH ×2 (09:00→20:11)
[2019-08-22] MEDS: Minoxidil 2.5mg tab GT SCH (09:00)
--- NOTE | 2019-08-22 09:00 | NUR ---
NURSE NOTES: ordered CPAP with pressure 8 as tolerated
[2019-08-22] MEDS: Ascorbic Acid 500mg tab GT SCH (09:24)
[2019-08-22] MEDS: Vitamin D 1000 IU Tab GT SCH (09:24)
[2019-08-22] MEDS: Nephrovite tab (Rena-Vite) GT SCH (09:24)
[2019-08-22] MEDS: Zinc Oxide Oint 2oz TOPIC SCH ×2 (09:25→17:55)
[2019-08-22] MEDS: Multivitamins W/Minerals 15 ML UDC GT SCH (09:25)
--- NOTE | 2019-08-22 09:27 | NUR ---
RD ASSESSMENT & RECOMMENDATIONS SEE CARE ACTIVITY FOR COMPLETE ASSESSMENT DAILY ESTIMATED NEEDS: Needs based on Renal, critical care, wound/ 61kg 22-30 kcals/kg 3773-5730 total kcals 1.25-2 g protein/kg 76-122 g total protein Fluid per MD, now on HD mL/kg . total fluid mLs NUTRITION DIAGNOSIS: * Swallowing difficulty R/T respiratory failure, dysphagia as evidenced by trach/vent dep, PEG dep * Increased kcal/prot needs R/T wound healing as evidenced by admitted w/ multiple pressure injuries per photos, pending eval. CURRENT TF:Nepro @ 45ml/hr x 24 hrs ENTERAL NUTRITION RECOMMENDATIONS: NEPRO to 45ml/hr x 22 hrs to provide 990ml, 1782kcal, 80g prot, 720ml free water * Maintain current TF rate, rec goal of 22 hrs for 2 hrs bowel rest d/t diarrhea. * Meets 100% est needs * HOB over 30 degrees/ water flush per MD ADDITIONAL RECOMMENDATIONS: * Per SNF: HT=63" ES=183 lbs (Vs EMR wt of 166lbs) -> obtain re-calibrated bedscale wt * Wound healing: continue Nephrovite x 1 + Vit C per Nephro + Garo 1pkt BID via GT * Monitor renal fxn and lytes-> pt now on HD K and phos low, rec repletion * +Diarrhea- rec probiotics BID and daily anti-diarrheal med
--- NOTE | 2019-08-22 10:19 | Hematology/Onc Progress Note ---
Assessment/Plan Assessment/Plan Assessment/recs # Leukocytosis - with multiple infections, VRE UTI --> wbc trend 33-->28-->25->23->22->23->24 --> on abx, linezolid and zosyn--> zosyn --> + blood cultures with coag neg staph likely contaminated --> as per id recs --> has ordered a flow cytometry (with pathology) --> does show increased nK cell activity --> JOURDAN 2 and bcr-abl labs ordered (these are send outs) # Anemia due to chronic disease/kidney disease as well, gi bleed + occult + noted --> was on iron in the past, now on hold --> has been started on epogen --> as per renal care --> egd done and shows gastritis --> on ppi --> egd showed gastritis, colo recently done --> hgb 9-->8.7-->7.6 # Respiratory failure --> per pulm, s/p trach --> COVID 19 test negative x 2 # Dysphagia s/p gtube with nepro --> per gi # ESRD with r fem julito --> hd as per renal # Dvt ppx scds Appreciate consultation and dw Rn Subjective Constitutional: Denies: no symptoms, chills, fever, malaise, weakness, other Cardiovascular: Denies: no symptoms, chest pain, edema, irregular heart rate, lightheadedness, palpitations, syncope, other Respiratory: Denies: no symptoms, cough, shortness of breath, SOB with excertion, SOB at rest, sputum, wheezing, other Gastrointestinal/Abdominal: Denies: no symptoms, abdomen distended, abdominal pain, black stools, tarry stools, blood in stool, constipated, diarrhea, difficulty swallowing, nausea, poor appetite, poor fluid intake, rectal bleeding , vomiting, other Genitourinary: Denies: no symptoms, burning, discharge, frequency, flank pain, hematuria, incontinence, pain, urgency, other Endocrine: Denies: no symptoms, excessive sweating, flushing, intolerance to cold, intolerance to heat, increased hunger, increased thirst, increased urine, unexplained weight gain, unexplained weight loss, other Hematologic/Lymphatic: Denies: no symptoms, anemia, easy bleeding, easy bruising, adenopathy, other Allergies: Coded Allergies: No Known Allergies (Unverified , 06/10/19) Subjective 08/15 meds noted, no bleeding, hgb 8.8, wbc 28, path flow pending 08/16 flow pending dw pathologist, results pending, wbc 25, hgb 9 08/17 labs reviewed, meds reviewed, meds noted, no night sweats 08/19 remains obtunded, on vent/trach, no bleeding wbc 21.7 08/20 labs have been reviewed, no bleeding, wbc still elev, path reviewed 08/21 labs are noted, no bleeding, on vent, wbc better Objective Objective Current Medications Medications (Trade) Dose Ordered Sig/Leonel Route PRN Reason Start Time Stop Time Status Last Admin Dose Admin Acetaminophen (Tylenol) 650 mg Q4H PRN GT Mild Pain / fever 08/09/19 05:30 09/08/19 05:29 08/21/19 12:15 Al Hydroxide/Mg Hydroxide (Mylanta) 30 ml FOUR TIMES A DAY PRN GT constipation 08/09/19 06:00 09/08/19 05:29 Ascorbic Acid (Vitamin C) 500 mg DAILY GT 08/09/19 09:00 09/08/19 08:59 08/22/19 09:24 Atorvastatin Calcium (Lipitor) 40 mg BEDTIME GT 08/09/19 21:00 11/07/19 20:59 08/21/19 20:26 Chlorhexidine Gluconate (Felipa-Hex 2%) 1 applic DAILY@2000 TOPIC 08/15/19 20:00 11/13/19 19:59 08/21/19 20:25 Clonidine HCl (Catapres Tab) 0.1 mg Q4H PRN GT SBP>150 08/12/19 10:45 11/10/19 06:44 Dextrose (Dextrose 50%) 25 ml Q30M PRN IV Hypoglycemia 08/09/19 07:30 11/07/19 07:29 Dextrose (Dextrose 50%) 50 ml Q30M PRN IV Hypoglycemia 08/09/19 07:30 11/07/19 07:29 Epoetin Andreas (Epoetin Andreas(ESRD on dialysis)) 10,000 unit MON-WED-WED SUBQ 08/18/19 21:00 11/16/19 20:59 08/21/19 20:26 Heparin Sodium (Porcine) (Heparin Sod 1000 units/ml 10ml) 2,000 unit ONCE PRN IV HD USE 08/22/19 06:00 08/22/19 23:59 Heparin Sodium (Porcine) (Heparin) 1,000 unit POSTHD PRN INJ HD USE 08/22/19 06:00 08/22/19 23:59 Insulin Aspart (NovoLOG) Q6HR SUBQ 08/10/19 00:00 11/07/19 11:29 08/22/19 05:19 Lansoprazole (Prevacid) 30 mg DAILY GT 08/09/19 09:00 09/08/19 08:59 08/22/19 09:24 Loperamide HCl (Imodium) 2 mg Q4H PRN GT Diarrhea 08/09/19 08:00 09/08/19 07:59 08/22/19 09:29 Metoprolol Tartrate (Lopressor) 200 mg Q12HR GT 08/09/19 09:00 11/07/19 08:59 08/21/19 20:26 Minoxidil (Loniten) 5 mg DAILY GT 08/09/19 09:00 11/07/19 08:59 08/21/19 08:34 Multivitamins (Multivitamins W/ Minerals 15ml Liquid) 15 ml DAILY GT 08/09/19 09:00 09/08/19 08:59 08/22/19 09:25 Piperacillin Sod/ Tazobactam Sod 2.25 gm/Sodium Chloride 55 ml @ 110 mls/hr Q8H IV 08/17/19 16:00 08/22/19 23:59 08/22/19 08:47 Sodium Chloride 1,000 ml @ 500 mls/hr Q2H PRN IVLG sbp<90 during hd 08/22/19 06:00 08/22/19 23:59 Vitamin B Complex/ Vit C/Folic Acid (Nephrovite) 1 tab DAILY GT 08/09/19 09:00 09/08/19 08:59 08/22/19 09:24 Vitamin D (Vitamin D) 1,000 intlu DAILY GT 08/09/19 09:00 09/08/19 08:59 08/22/19 09:24 Zinc Oxide (Zinc Oxide) 1 applic BID TOPIC 08/10/19 18:00 11/08/19 17:59 08/22/19 09:25 Last 24 Hour Vital Signs Date Time Temp Pulse Resp B/P (MAP) Pulse Ox O2 Delivery O2 Flow Rate FiO2 08/22/19 09:00 76 146/67 08/22/19 09:00 146/67 08/22/19 08:00 99.5 76 21 146/67 (93) 100 08/22/19 07:45 86 20 24 08/22/19 04:00 Mechanical Ventilator Mechanical Ventilator 08/22/19 04:00 24 08/22/19 04:00 98.1 78 21 151/75 (100) 100 08/22/19 03:42 76 08/22/19 03:00 76 19 24 08/22/19 00:00 Mechanical Ventilator Mechanical Ventilator 08/22/19 00:00 24 08/22/19 00:00 99.2 67 20 144/64 (90) 100 08/22/19 00:00 67 08/21/19 22:48 66 19 24 08/21/19 20:26 72 159/68 08/21/19 20:25 72 22 159/68 (98) 100 08/21/19 20:00 98.5 73 21 152/66 (94) 100 08/21/19 20:00 24 08/21/19 20:00 Mechanical Ventilator Mechanical Ventilator 08/21/19 19:09 72 08/21/19 19:08 76 20 24 08/21/19 16:00 Mechanical Ventilator Mechanical Ventilator 08/21/19 16:00 97.9 66 20 130/86 (101) 100 08/21/19 16:00 25 08/21/19 16:00 64 08/21/19 15:10 62 15 24 08/21/19 12:00 98.4 66 20 149/73 (98) 100 08/21/19 12:00 25 08/21/19 12:00 62 08/21/19 12:00 Mechanical Ventilator Mechanical Ventilator 08/21/19 11:00 62 15 24 08/21/19 08:35 68 151/74 08/21/19 08:34 151/74 08/21/19 08:00 63 08/21/19 08:00 98.4 68 20 151/74 (99) 100 08/21/19 08:00 Mechanical Ventilator Mechanical Ventilator 7/13/20 08:00 25 08/21/19 07:10 64 16 24 08/21/19 04:00 25 08/21/19 04:00 98.7 75 20 139/65 (89) 100 08/21/19 04:00 Mechanical Ventilator Mechanical Ventilator 08/21/19 03:31 74 21 24 08/21/19 03:30 74 08/21/19 00:00 Mechanical Ventilator Mechanical Ventilator 08/21/19 00:00 74 08/21/19 00:00 98.8 77 20 144/77 (99) 100 08/20/19 23:49 72 18 24 08/20/19 20:46 78 150/78 08/20/19 20:00 Mechanical Ventilator Mechanical Ventilator 08/20/19 20:00 25 08/20/19 20:00 99.0 78 22 150/78 (102) 100 08/20/19 19:21 76 17 24 08/20/19 19:08 74 08/20/19 17:48 71 08/20/19 16:00 98.4 69 22 136/62 (86) 100 08/20/19 16:00 Mechanical Ventilator Mechanical Ventilator 08/20/19 16:00 25 08/20/19 15:19 69 18 24 08/20/19 12:00 70 08/20/19 12:00 25 08/20/19 12:00 Mechanical Ventilator Mechanical Ventilator 08/20/19 12:00 98.6 68 22 125/55 (78) 100 08/20/19 10:51 68 18 24 Intake and Output 08/21/19 08/22/19 19:00 07:00 Intake Total 735 ml 645 ml Output Total 350 ml 400 ml Balance 385 ml 245 ml Free Water 150 ml 50 ml IV Total 55 ml Tube Feeding 585 ml 540 ml Output Urine Total 300 ml 300 ml Stool Total 50 ml 100 ml Labs Test 08/19/19 11:37 08/19/19 17:37 08/19/19 23:12 08/20/19 01:30 POC Whole Blood Glucose 161 MG/DL (74-106) 151 MG/DL (74-106) Stool Occult Blood Positive (NEGATIVE) Test 08/20/19 05:27 08/20/19 05:45 08/20/19 12:12 08/20/19 17:18 White Blood Count 21.7 K/UL (4.8-10.8) Red Blood Count 3.04 M/UL (4.70-6.10) Hemoglobin 8.2 G/DL (14.2-18.0) Hematocrit 26.3 % (42.0-52.0) Mean Corpuscular Volume 87 FL (80-99) Mean Corpuscular Hemoglobin 27.0 PG (27.0-31.0) Mean Corpuscular Hemoglobin Concent 31.1 G/DL (32.0-36.0) Red Cell Distribution Width 17.7 % (11.6-14.8) Platelet Count 210 K/UL (150-450) Mean Platelet Volume 5.5 FL (6.5-10.1) Neutrophils (%) (Auto) % (45.0-75.0) Lymphocytes (%) (Auto) % (20.0-45.0) Monocytes (%) (Auto) % (1.0-10.0) Eosinophils (%) (Auto) % (0.0-3.0) Basophils (%) (Auto) % (0.0-2.0) Differential Total Cells Counted 100 Neutrophils % (Manual) 87 % (45-75) Lymphocytes % (Manual) 8 % (20-45) Monocytes % (Manual) 2 % (1-10) Eosinophils % (Manual) 3 % (0-3) Basophils % (Manual) 0 % (0-2) Band Neutrophils 0 % (0-8) Platelet Estimate Adequate Platelet Morphology Normal Polychromasia 1+ Hypochromasia 1+ Anisocytosis 1+ Sodium Level 141 MMOL/L (136-145) Potassium Level 3.8 MMOL/L (3.5-5.1) Chloride Level 104 MMOL/L (98-107) Carbon Dioxide Level 29 MMOL/L (21-32) Anion Gap 8 mmol/L (5-15) Blood Urea Nitrogen 47 mg/dL (7-18) Creatinine 2.3 MG/DL (0.55-1.30) Estimat Glomerular Filtration Rate 27.6 mL/min (>60) Glucose Level 222 MG/DL (74-106) Calcium Level 8.7 MG/DL (8.5-10.1) POC Whole Blood Glucose 158 MG/DL (74-106) 168 MG/DL (74-106) Test 08/20/19 23:30 08/21/19 05:12 08/21/19 09:00 08/21/19 12:11 White Blood Count 22.7 K/UL (4.8-10.8) Red Blood Count 3.09 M/UL (4.70-6.10) Hemoglobin 8.4 G/DL (14.2-18.0) Hematocrit 27.1 % (42.0-52.0) Mean Corpuscular Volume 88 FL (80-99) Mean Corpuscular Hemoglobin 27.2 PG (27.0-31.0) Mean Corpuscular Hemoglobin Concent 31.0 G/DL (32.0-36.0) Red Cell Distribution Width 17.6 % (11.6-14.8) Platelet Count 193 K/UL (150-450) Mean Platelet Volume 6.0 FL (6.5-10.1) Neutrophils (%) (Auto) % (45.0-75.0) Lymphocytes (%) (Auto) % (20.0-45.0) Monocytes (%) (Auto) % (1.0-10.0) Eosinophils (%) (Auto) % (0.0-3.0) Basophils (%) (Auto) % (0.0-2.0) Differential Total Cells Counted 100 Neutrophils % (Manual) 72 % (45-75) Lymphocytes % (Manual) 15 % (20-45) Monocytes % (Manual) 7 % (1-10) Eosinophils % (Manual) 6 % (0-3) Basophils % (Manual) 0 % (0-2) Band Neutrophils 0 % (0-8) Platelet Estimate Adequate Platelet Morphology Normal Hypochromasia 1+ Anisocytosis 1+ Sodium Level 141 MMOL/L (136-145) Potassium Level 3.4 MMOL/L (3.5-5.1) Chloride Level 105 MMOL/L (98-107) Carbon Dioxide Level 29 MMOL/L (21-32) Anion Gap 8 mmol/L (5-15) Blood Urea Nitrogen 58 mg/dL (7-18) Creatinine 2.8 MG/DL (0.55-1.30) Estimat Glomerular Filtration Rate 22.0 mL/min (>60) Glucose Level 207 MG/DL (74-106) Calcium Level 8.4 MG/DL (8.5-10.1) Total Bilirubin 0.3 MG/DL (0.2-1.0) Aspartate Amino Transf (AST/SGOT) 38 U/L (15-37) Alanine Aminotransferase (ALT/SGPT) 21 U/L (12-78) Alkaline Phosphatase 241 U/L (46-116) Total Protein 7.2 G/DL (6.4-8.2) Albumin 1.4 G/DL (3.4-5.0) Globulin 5.8 g/dL Albumin/Globulin Ratio 0.2 (1.0-2.7) Test 08/21/19 18:01 08/22/19 03:55 White Blood Count 24.1 K/UL (4.8-10.8) Red Blood Count 2.79 M/UL (4.70-6.10) Hemoglobin 7.6 G/DL (14.2-18.0) Hematocrit 24.1 % (42.0-52.0) Mean Corpuscular Volume 86 FL (80-99) Mean Corpuscular Hemoglobin 27.2 PG (27.0-31.0) Mean Corpuscular Hemoglobin Concent 31.5 G/DL (32.0-36.0) Red Cell Distribution Width 17.6 % (11.6-14.8) Platelet Count 204 K/UL (150-450) Mean Platelet Volume 6.5 FL (6.5-10.1) Neutrophils (%) (Auto) % (45.0-75.0) Lymphocytes (%) (Auto) % (20.0-45.0) Monocytes (%) (Auto) % (1.0-10.0) Eosinophils (%) (Auto) % (0.0-3.0) Basophils (%) (Auto) % (0.0-2.0) Differential Total Cells Counted 100 Neutrophils % (Manual) 73 % (45-75) Lymphocytes % (Manual) 12 % (20-45) Monocytes % (Manual) 5 % (1-10) Eosinophils % (Manual) 10 % (0-3) Basophils % (Manual) 0 % (0-2) Band Neutrophils 0 % (0-8) Platelet Estimate Adequate Platelet Morphology Normal Hypochromasia 3+ Anisocytosis 2+ Sodium Level 141 MMOL/L (136-145) Potassium Level 3.4 MMOL/L (3.5-5.1) Chloride Level 104 MMOL/L (98-107) Carbon Dioxide Level 27 MMOL/L (21-32) Anion Gap 10 mmol/L (5-15) Blood Urea Nitrogen 65 mg/dL (7-18) Creatinine 3.0 MG/DL (0.55-1.30) Estimat Glomerular Filtration Rate 20.3 mL/min (>60) Glucose Level 167 MG/DL (74-106) Calcium Level 8.2 MG/DL (8.5-10.1) Phosphorus Level 0.9 MG/DL (2.5-4.9) Micro Microbiology Date/Time Source Procedure Growth Status 08/22/19 02:35 Stool Clostridium difficile Toxin Assay - Final Complete Height (Feet): 6 Height (Inches): 7 Weight (Pounds): 166 Objective Physical Exam General Appearance: nad, Chronically Ill Head: normocephalic Eyes: right eye PERRL - Will not open left eye ENT: moist mucus membranes Neck: other - submandibular mass R, fairly rigid with resistance to rotation to L, tracheotomy Respiratory: decreased breath sounds, crackles, other - pacemaker Cardiovascular: regular rate, rhythm, edema - anasarca Gastrointestinal: non tender, distended, other - G tube Genitourinary: other Musculoskeletal: other - Contractures all extremities Neurologic: sensory intact, motor weakness, responsive Psychiatric: other Skin: Decubitus/Ulcer - Stage III right elbow, stage III left elbow, stage II sacrum, stage III scrotum, warm/dry Fitz Campos MD Aug 22, 2019 10:19
--- NOTE | 2019-08-22 10:30 | NUR ---
NURSE NOTES: ABG notified to Dr Solis. Pt tolerating well with current CPAP mode. CPAP will continue to apply for breathing support as tolerated
--- NOTE | 2019-08-22 11:22 | Infectious Diseases Prog Note ---
Assessment/Plan Assessment/Plan antibiotics : zosyn A 1. VRE UTI s/p rx 2. + blood cultures with coag neg staph likely contaminated 3. respiratory failure 4. leucocytosis 5. group G streptococcus, providencia, pseudomonas, serratia pneumonia s/p rx COVID 19 test negative x 2 6. renal failure on HD P 1. d/c zosyn 2. observe off antibiotics 3. will follow up cultures Subjective ROS Limited/Unobtainable: Yes Allergies: Coded Allergies: No Known Allergies (Unverified , 06/10/19) Objective Last 24 Hour Vital Signs Date Time Temp Pulse Resp B/P (MAP) Pulse Ox O2 Delivery O2 Flow Rate FiO2 08/22/19 09:00 76 146/67 08/22/19 09:00 146/67 08/22/19 08:00 99.5 76 21 146/67 (93) 100 08/22/19 07:45 86 20 24 08/22/19 04:00 Mechanical Ventilator Mechanical Ventilator 08/22/19 04:00 24 08/22/19 04:00 98.1 78 21 151/75 (100) 100 08/22/19 03:42 76 08/22/19 03:00 76 19 24 08/22/19 00:00 Mechanical Ventilator Mechanical Ventilator 08/22/19 00:00 24 08/22/19 00:00 99.2 67 20 144/64 (90) 100 08/22/19 00:00 67 08/21/19 22:48 66 19 24 08/21/19 20:26 72 159/68 08/21/19 20:25 72 22 159/68 (98) 100 08/21/19 20:00 98.5 73 21 152/66 (94) 100 08/21/19 20:00 24 08/21/19 20:00 Mechanical Ventilator Mechanical Ventilator 08/21/19 19:09 72 08/21/19 19:08 76 20 24 08/21/19 16:00 Mechanical Ventilator Mechanical Ventilator 08/21/19 16:00 97.9 66 20 130/86 (101) 100 08/21/19 16:00 25 08/21/19 16:00 64 08/21/19 15:10 62 15 24 08/21/19 12:00 98.4 66 20 149/73 (98) 100 7/13/20 12:00 25 08/21/19 12:00 62 08/21/19 12:00 Mechanical Ventilator Mechanical Ventilator Height (Feet): 6 Height (Inches): 7 Weight (Pounds): 166 HEENT: status post trach Respiratory/Chest: lungs clear Cardiovascular: normal rate, regular rhythm, no gallop/murmur Abdomen: soft, non tender, other - GT Extremities: other - + edema Microbiology Date/Time Source Procedure Growth Status 08/22/19 02:35 Stool Clostridium difficile Toxin Assay - Final Complete Laboratory Tests Test 08/21/19 12:11 08/21/19 18:01 08/22/19 03:55 POC Whole Blood Glucose Pending Pending White Blood Count 24.1 K/UL (4.8-10.8) *H Red Blood Count 2.79 M/UL (4.70-6.10) L Hemoglobin 7.6 G/DL (14.2-18.0) L Hematocrit 24.1 % (42.0-52.0) L Mean Corpuscular Volume 86 FL (80-99) Mean Corpuscular Hemoglobin 27.2 PG (27.0-31.0) Mean Corpuscular Hemoglobin Concent 31.5 G/DL (32.0-36.0) L Red Cell Distribution Width 17.6 % (11.6-14.8) H Platelet Count 204 K/UL (150-450) Mean Platelet Volume 6.5 FL (6.5-10.1) Neutrophils (%) (Auto) % (45.0-75.0) Lymphocytes (%) (Auto) % (20.0-45.0) Monocytes (%) (Auto) % (1.0-10.0) Eosinophils (%) (Auto) % (0.0-3.0) Basophils (%) (Auto) % (0.0-2.0) Differential Total Cells Counted 100 Neutrophils % (Manual) 73 % (45-75) Lymphocytes % (Manual) 12 % (20-45) L Monocytes % (Manual) 5 % (1-10) Eosinophils % (Manual) 10 % (0-3) H Basophils % (Manual) 0 % (0-2) Band Neutrophils 0 % (0-8) Platelet Estimate Adequate Platelet Morphology Normal Hypochromasia 3+ Anisocytosis 2+ Sodium Level 141 MMOL/L (136-145) Potassium Level 3.4 MMOL/L (3.5-5.1) L Chloride Level 104 MMOL/L (98-107) Carbon Dioxide Level 27 MMOL/L (21-32) Anion Gap 10 mmol/L (5-15) Blood Urea Nitrogen 65 mg/dL (7-18) H Creatinine 3.0 MG/DL (0.55-1.30) H Estimat Glomerular Filtration Rate 20.3 mL/min (>60) Glucose Level 167 MG/DL (74-106) H Calcium Level 8.2 MG/DL (8.5-10.1) L Phosphorus Level 0.9 MG/DL (2.5-4.9) *L Current Medications Medications (Trade) Dose Ordered Sig/Leonel Route PRN Reason Start Time Stop Time Status Last Admin Dose Admin Acetaminophen (Tylenol) 650 mg Q4H PRN GT Mild Pain / fever 08/09/19 05:30 09/08/19 05:29 08/21/19 12:15 Al Hydroxide/Mg Hydroxide (Mylanta) 30 ml FOUR TIMES A DAY PRN GT constipation 08/09/19 06:00 09/08/19 05:29 Ascorbic Acid (Vitamin C) 500 mg DAILY GT 08/09/19 09:00 09/08/19 08:59 08/22/19 09:24 Atorvastatin Calcium (Lipitor) 40 mg BEDTIME GT 08/09/19 21:00 11/07/19 20:59 08/21/19 20:26 Chlorhexidine Gluconate (Felipa-Hex 2%) 1 applic DAILY@2000 TOPIC 08/15/19 20:00 11/13/19 19:59 08/21/19 20:25 Clonidine HCl (Catapres Tab) 0.1 mg Q4H PRN GT SBP>150 08/12/19 10:45 11/10/19 06:44 Dextrose (Dextrose 50%) 25 ml Q30M PRN IV Hypoglycemia 08/09/19 07:30 11/07/19 07:29 Dextrose (Dextrose 50%) 50 ml Q30M PRN IV Hypoglycemia 08/09/19 07:30 11/07/19 07:29 Epoetin Andreas (Epoetin Andreas(ESRD on dialysis)) 10,000 unit WED-WED-WED SUBQ 08/18/19 21:00 11/16/19 20:59 08/21/19 20:26 Heparin Sodium (Porcine) (Heparin Sod 1000 units/ml 10ml) 2,000 unit ONCE PRN IV HD USE 08/22/19 06:00 08/22/19 23:59 Heparin Sodium (Porcine) (Heparin) 1,000 unit POSTHD PRN INJ HD USE 08/22/19 06:00 08/22/19 23:59 Insulin Aspart (NovoLOG) Q6HR SUBQ 08/10/19 00:00 11/07/19 11:29 08/22/19 05:19 Lansoprazole (Prevacid) 30 mg DAILY GT 08/09/19 09:00 09/08/19 08:59 08/22/19 09:24 Loperamide HCl (Imodium) 2 mg Q4H PRN GT Diarrhea 08/09/19 08:00 09/08/19 07:59 08/22/19 09:29 Metoprolol Tartrate (Lopressor) 200 mg Q12HR GT 08/09/19 09:00 11/07/19 08:59 08/21/19 20:26 Minoxidil (Loniten) 5 mg DAILY GT 08/09/19 09:00 11/07/19 08:59 08/21/19 08:34 Multivitamins (Multivitamins W/ Minerals 15ml Liquid) 15 ml DAILY GT 08/09/19 09:00 09/08/19 08:59 08/22/19 09:25 Piperacillin Sod/ Tazobactam Sod 2.25 gm/Sodium Chloride 55 ml @ 110 mls/hr Q8H IV 08/17/19 16:00 08/22/19 23:59 08/22/19 08:47 Sodium Chloride 1,000 ml @ 500 mls/hr Q2H PRN IVLG sbp<90 during hd 08/22/19 06:00 08/22/19 23:59 Vitamin B Complex/ Vit C/Folic Acid (Nephrovite) 1 tab DAILY GT 08/09/19 09:00 09/08/19 08:59 08/22/19 09:24 Vitamin D (Vitamin D) 1,000 intlu DAILY GT 08/09/19 09:00 09/08/19 08:59 08/22/19 09:24 Zinc Oxide (Zinc Oxide) 1 applic BID TOPIC 08/10/19 18:00 11/08/19 17:59 08/22/19 09:25 Farnaz Lyle MD Aug 22, 2019 11:22
--- NOTE | 2019-08-22 12:51 | Surgery Progress Note ---
Surgery Progress Note Subjective Procedure Performed Right femoral temporary hemodialysis catheter insertion Additional Comments no acute events labs noted exam stable Objective Last 24 Hour Vital Signs Date Time Temp Pulse Resp B/P (MAP) Pulse Ox O2 Delivery O2 Flow Rate FiO2 08/22/19 12:00 24 08/22/19 09:00 76 146/67 08/22/19 09:00 146/67 08/22/19 08:00 77 08/22/19 08:00 24 08/22/19 08:00 99.5 76 21 146/67 (93) 100 08/22/19 07:45 86 20 24 08/22/19 04:00 Mechanical Ventilator Mechanical Ventilator 08/22/19 04:00 24 08/22/19 04:00 98.1 78 21 151/75 (100) 100 08/22/19 03:42 76 08/22/19 03:00 76 19 24 08/22/19 00:00 Mechanical Ventilator Mechanical Ventilator 08/22/19 00:00 24 08/22/19 00:00 99.2 67 20 144/64 (90) 100 08/22/19 00:00 67 08/21/19 22:48 66 19 24 08/21/19 20:26 72 159/68 08/21/19 20:25 72 22 159/68 (98) 100 08/21/19 20:00 98.5 73 21 152/66 (94) 100 08/21/19 20:00 24 08/21/19 20:00 Mechanical Ventilator Mechanical Ventilator 08/21/19 19:09 72 08/21/19 19:08 76 20 24 08/21/19 16:00 Mechanical Ventilator Mechanical Ventilator 08/21/19 16:00 97.9 66 20 130/86 (101) 100 08/21/19 16:00 25 08/21/19 16:00 64 08/21/19 15:10 62 15 24 I&O Intake and Output 08/21/19 08/22/19 19:00 07:00 Intake Total 735 ml 645 ml Output Total 350 ml 400 ml Balance 385 ml 245 ml Free Water 150 ml 50 ml IV Total 55 ml Tube Feeding 585 ml 540 ml Output Urine Total 300 ml 300 ml Stool Total 50 ml 100 ml Dressing: other Wound: other Drains: other Cardiovascular: RSR Respiratory: decreased breath sounds Abdomen: soft, non-tender, present bowel sounds Extremities: no cyanosis Laboratory Tests Test 08/21/19 18:01 08/22/19 03:55 08/22/19 12:41 POC Whole Blood Glucose Pending 162 MG/DL (74-106) H White Blood Count 24.1 K/UL (4.8-10.8) *H Red Blood Count 2.79 M/UL (4.70-6.10) L Hemoglobin 7.6 G/DL (14.2-18.0) L Hematocrit 24.1 % (42.0-52.0) L Mean Corpuscular Volume 86 FL (80-99) Mean Corpuscular Hemoglobin 27.2 PG (27.0-31.0) Mean Corpuscular Hemoglobin Concent 31.5 G/DL (32.0-36.0) L Red Cell Distribution Width 17.6 % (11.6-14.8) H Platelet Count 204 K/UL (150-450) Mean Platelet Volume 6.5 FL (6.5-10.1) Neutrophils (%) (Auto) % (45.0-75.0) Lymphocytes (%) (Auto) % (20.0-45.0) Monocytes (%) (Auto) % (1.0-10.0) Eosinophils (%) (Auto) % (0.0-3.0) Basophils (%) (Auto) % (0.0-2.0) Differential Total Cells Counted 100 Neutrophils % (Manual) 73 % (45-75) Lymphocytes % (Manual) 12 % (20-45) L Monocytes % (Manual) 5 % (1-10) Eosinophils % (Manual) 10 % (0-3) H Basophils % (Manual) 0 % (0-2) Band Neutrophils 0 % (0-8) Platelet Estimate Adequate Platelet Morphology Normal Hypochromasia 3+ Anisocytosis 2+ Sodium Level 141 MMOL/L (136-145) Potassium Level 3.4 MMOL/L (3.5-5.1) L Chloride Level 104 MMOL/L (98-107) Carbon Dioxide Level 27 MMOL/L (21-32) Anion Gap 10 mmol/L (5-15) Blood Urea Nitrogen 65 mg/dL (7-18) H Creatinine 3.0 MG/DL (0.55-1.30) H Estimat Glomerular Filtration Rate 20.3 mL/min (>60) Glucose Level 167 MG/DL (74-106) H Calcium Level 8.2 MG/DL (8.5-10.1) L Phosphorus Level 0.9 MG/DL (2.5-4.9) *L Plan Problems: (1) Anemia (2) Hyponatremia (3) Leukocytosis Assessment & Plan: Tracheostomy, left chest pacemaker are again demonstrated. There is bilateral interstitial and airspace disease and bilateral pleural fluid again demonstrated. This appears more severe than on the prior study. Bilateral interstitial and airspace infiltrates versus edema. Bilateral pleural effusions Leukocytosis, anemia, tachycardia, abnormal labs. Wound evaluated and likely etiology of patient's sepsis. Leukocytosis etiology work-up antibiotics per infectious disease Appreciate nephrology input transfuse with dialysis We will follow with recommendations thank you allowing participation's care plan HD access temp HD discussed with medical teams line okay HD as per renal persistent leukocytosis flow cyto noted (4) Ventilator dependent (5) Right lower lobe pneumonia (6) Hypokalemia (7) Hyperkalemia (8) Anasarca (9) Decubitus skin ulcer Assessment & Plan: pt presented on admission with generalized edemae.Skin assessed under tracheostomy and no areas of concerns noted. GT Insertion is marginally erythematous with small amt slough at stoma. Unstageable Pressure Injury R elbow. Base of wound is 100% yellow slough, Borders are erythematous. Wound oozing small amt haemopurulent exudate.Darker skin tone without elevation in skin temp or erythema periwound. Pt's penis and scrotum are grossly edematous and enlarged and weeping serous exudate from numerous sites both from penis and scrotum. Two small open wounds noted at base of at base of shaft of penis ,and contreras aspect of scrotum. Both wounds oozing large amt sanguineous and serosanguineous exudate. Multiple open wounds with Biofilm at base of each wounds noted to contreras/lateral,inferior and posterior aspects of scrotum. These wounds noted to be oozing moderate amts of serosanguineous exudate. Hypertrophic scar with scattered areas of hyperpigmentation noted to Sacrum. DTPI noted to L Buttocks (L)7cm x (W)9cm. Base of wound is purple and indurated.Darker skin tone without erythema, induration or fluctuance R and L ischial tuberosities. Both heels are boggy with non-blanchable erythema. Tx.Plan: Cleanse wound R elbow with Saline. Apply TheraHoney, Apply Moisture Barrier Paste periwound. Cover with Optifoam drsg.Change Daily and prn. Wash GT site with soap and water.Pat dry. Apply Zinc Oxide Paste to GT site Daily. Leave Open to Air. Apply Zinc Oxide Paste to entire Scrotum, Place ABD pads to R and L lateral, and posterior aspects of scrotum TWICE daily. Apply Cavilon Skin Barrier to malleoli and both Heels. Cover each site with Optifoam drsgs. Change every 7 days and prn. Reposition at least every 2hours or as tolerated. Off-load heels with Pillows. APM/BECCA Mattress overlay. (10) Malnutrition Assessment & Plan: DAILY ESTIMATED NEEDS: Needs based on Renal, critical care, wound/ 61kg 22-28 kcals/kg 3999-2001 total kcals 1-1.25 (increase w/ renal improvement) g protein/kg 61-76 g total protein 20-25 mL/kg 7349-0104 total fluid mLs NUTRITION DIAGNOSIS: * Swallowing difficulty R/T respiratory failure, dysphagia as evidenced by trach/vent dep, PEG dep * Increased kcal/prot needs R/T wound healing as evidenced by admitted w/ multiple pressure injuries per photos, pending eval. CURRENT TF:Nepro @ 45ml/hr x 24 hrs ENTERAL NUTRITION RECOMMENDATIONS: NEPRO to 45ml/hr x 20 hrs to provide 900ml, 1620kcal, 73g prot, 654ml free water * Maintain current TF * HOB over 30 degrees/ water flush per MD ADDITIONAL RECOMMENDATIONS: * Per SNF: HT=63" TW=879 lbs (Vs EMR wt of 165lbs) -> obtain re-calibrated bedscale wt * Wound healing: add Nephrovite x 1 + Vit C 250mg QD add Garo 1pkt BID via GT * Monitor renal fxn and lytes, check phos level (11) Uremia (12) CKD (chronic kidney disease) stage 5, GFR less than 15 ml/min (13) Colon distention Assessment & Plan: discussed with GI likely functional as having lots of loose bm rectal tube kub f/u Marked distention of the sigmoid colon. 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 No evidence of bowel wall thickening or pneumatosis 12 mm focus of contrast enhancement in the right pectineus muscle. While nonspecific in appearance, appearance raises concern for a possible pseudoaneurysm. Ill- defined thickening of the pectus medius muscle could indicate some intramuscular hemorrhage. The above findings were phoned to Dr. Urias at the time of interpretation Large bilateral pleural effusions Hazy pulmonary parenchymal opacities as well as dense consolidative opacities most likely represent pulmonary edema, but could represent pneumonia Evidence of anasarca elsewhere, with generalized edema of the subcutaneous fat Bladder wall thickening, raises concern for cystitis. Avalos catheter in place Colonic diverticulosis. No evidence of diverticulitis. Tracheostomy Pacemaker Gastrostomy Jonathan Urias Aug 22, 2019 12:51
--- NOTE | 2019-08-22 13:29 | Nephrology Progress Note ---
Assessment/Plan Plan Sepsis - IV Abx Skin wounds - wound care Pre ESRD - HD now TTS. Subjective Subjective Obtunded Objective Objective Last 24 Hour Vital Signs Date Time Temp Pulse Resp B/P (MAP) Pulse Ox O2 Delivery O2 Flow Rate FiO2 08/22/19 12:00 24 08/22/19 11:45 78 19 24 08/22/19 09:00 76 146/67 08/22/19 09:00 146/67 08/22/19 08:00 77 08/22/19 08:00 24 08/22/19 08:00 99.5 76 21 146/67 (93) 100 08/22/19 07:45 86 20 24 08/22/19 04:00 Mechanical Ventilator Mechanical Ventilator 08/22/19 04:00 24 08/22/19 04:00 98.1 78 21 151/75 (100) 100 08/22/19 03:42 76 08/22/19 03:00 76 19 24 08/22/19 00:00 Mechanical Ventilator Mechanical Ventilator 08/22/19 00:00 24 08/22/19 00:00 99.2 67 20 144/64 (90) 100 08/22/19 00:00 67 08/21/19 22:48 66 19 24 08/21/19 20:26 72 159/68 08/21/19 20:25 72 22 159/68 (98) 100 08/21/19 20:00 98.5 73 21 152/66 (94) 100 08/21/19 20:00 24 08/21/19 20:00 Mechanical Ventilator Mechanical Ventilator 08/21/19 19:09 72 08/21/19 19:08 76 20 24 08/21/19 16:00 Mechanical Ventilator Mechanical Ventilator 08/21/19 16:00 97.9 66 20 130/86 (101) 100 08/21/19 16:00 25 08/21/19 16:00 64 08/21/19 15:10 62 15 24 Intake and Output 08/21/19 08/22/19 19:00 07:00 Intake Total 735 ml 645 ml Output Total 350 ml 400 ml Balance 385 ml 245 ml Free Water 150 ml 50 ml IV Total 55 ml Tube Feeding 585 ml 540 ml Output Urine Total 300 ml 300 ml Stool Total 50 ml 100 ml Laboratory Tests 08/21/19 18:01: POC Whole Blood Glucose [Pending] 08/22/19 03:55: White Blood Count 24.1*H, Red Blood Count 2.79L, Hemoglobin 7.6L, Hematocrit 24.1L, Mean Corpuscular Volume 86, Mean Corpuscular Hemoglobin 27.2, Mean Corpuscular Hemoglobin Concent 31.5L, Red Cell Distribution Width 17.6H, Platelet Count 204, Mean Platelet Volume 6.5, Neutrophils (%) (Auto) , Lymphocytes (%) (Auto) , Monocytes (%) (Auto) , Eosinophils (%) (Auto) , Basophils (%) (Auto) , Differential Total Cells Counted 100, Neutrophils % ( Manual) 73, Lymphocytes % (Manual) 12L, Monocytes % (Manual) 5, Eosinophils % ( Manual) 10H, Basophils % (Manual) 0, Band Neutrophils 0, Platelet Estimate Adequate, Platelet Morphology Normal, Hypochromasia 3+, Anisocytosis 2+, Sodium Level 141, Potassium Level 3.4L, Chloride Level 104, Carbon Dioxide Level 27, Anion Gap 10, Blood Urea Nitrogen 65H, Creatinine 3.0H, Estimat Glomerular Filtration Rate 20.3, Glucose Level 167H, Calcium Level 8.2L, Phosphorus Level 0.9*L 08/22/19 12:41: POC Whole Blood Glucose 162H Height (Feet): 6 Height (Inches): 7 Weight (Pounds): 166 Objective CV RR Trach clean Lungs CTA Abd SNT. BS + E No CCE Erica Pichardo MD Aug 22, 2019 13:29
--- NOTE | 2019-08-22 14:48 | NUR ---
*-* INSURANCE *-* UPDATED CLINICALS AND REVIEWS HAVE BEEN FAXED TO: ELIN P:[phone] F:[phone]
--- NOTE | 2019-08-22 16:33 | NUR ---
CASE MANAGEMENT: REVIEW SI: RIGHT LOWER LOBE PNA . ESRD on HD TUNNEL CATH PLACEMENT T 99.0 HR 72 RR 21 BP 180/80 SAT 100% MECH VENT FIO2 24 WBC 24.1 H/H 7.6/24.1 K 3.4 BUN 65 CR 3.0 PHOS 0.9 IS: ZOSYN IV Q12HR EPOETIN SUBQ QMWF HEPARIN IV PRN HD HD NEEDED TRANSFUSE PRBC PATIENT ADMITTED TO [facility] UN[facility] DCP: PATIENT IS FROM [facility]
--- NOTE | 2019-08-22 19:05 | NUR ---
NURSE NOTES: Received patient and report from TAMICA Madsen. Patient is observed resting in bed and remains obtunded. No pain noted upon assessment. Pt is currently trach to vent; vent settings as follows: AC 15 TV 450 FiO2 24 PEEP 5 with an O2 saturation of 100% noted. No s/sx of respiratory distress noted at this time. Bilateral lower lobe breath sounds noted to be diminished upon auscultation. Pt noted to be VPaced on tele monitor with no s/sx of acute distress noted. Avalos catheter noted which remains intact, patent and draining urine to gravity. Rectal tube noted with a small amount of brown, liquid stool in collection bag. R Femoral Rancho catheter noted which remains intact and patent. Central line dressing remains clean, dry and intact. G tube noted which remains intact and patent with 0mL residual noted, feeding infusing as prescribed. Bowel sounds noted in all four quadrants, abdomen remains large, firm, round and distended. Diagnostics reviewed at bedside. Skin alterations noted. Pt repositioned for comfort and safety. Fall, Aspiration and Skin precautions observed. Pt remains resting in bed; Bed remains in the lowest position with the safety wheels engaged, call light within reach, side rails up x3 and bed alarm activated. Will continue plan of care. Will continue to monitor.
--- NOTE | 2019-08-22 19:40 | NUR ---
HAND-OFF: Report given to TAMICA Leon. Pt remains stable.
[2019-08-22] MEDS: Dyna-Hex 2% Top Sol 2oz TOPIC SCH (20:11)
[2019-08-22] MEDS: Atorvastatin 20mg tab GT SCH (20:11)
--- NOTE | 2019-08-22 22:00 | NUR ---
NURSE NOTES: Bedside assessment performed. Pt noted to be sleeping at this time. Assessed pt for pain using FLACC scale with a score of 0 noted. Pt provided with a partial bed bath, oral care and suctioning for excess secretions. Pt repositioned for comfort and safety. VS obtained and noted to be stable at this time. Fall, Aspiration and Skin precautions observed. Pt remains resting in bed; Bed remains in the lowest position with the safety wheels engaged, call light within reach, side rails up x3 and bed alarm activated. Will continue plan of care. Will continue to monitor.
--- NOTE | 2019-08-22 23:03 | General Progress Note ---
Assessment/Plan Assessment/Plan: Assessment - sigmoid distention on CT - suspect functional - Anemia - Black stools - stool OB (+) - EGD --> gastritis, Colonoscopy --> not planned since done recently - Renal failure - Sepsis / leukocytosis - Anasarca - resp failure, trach - dysphagia, GT - encephalopathy, contracted - Diarrhea, C Diff (-) x 2 - poor px Recommendations - continue TF - Iron panel noted - re check C Diff since high risk - negative - PPI - abx - supportive care Subjective Allergies: Coded Allergies: No Known Allergies (Unverified , 06/10/19) Subjective Above noted no events overnight NAD tolerating feeds Objective Last 24 Hour Vital Signs Date Time Temp Pulse Resp B/P (MAP) Pulse Ox O2 Delivery O2 Flow Rate FiO2 08/22/19 20:11 73 155/66 08/22/19 20:00 97.3 73 21 146/64 (91) 100 08/22/19 20:00 24 08/22/19 20:00 Mechanical Ventilator 08/22/19 19:20 70 23 24 08/22/19 16:00 24 08/22/19 16:00 75 08/22/19 16:00 Mechanical Ventilator Mechanical Ventilator 08/22/19 16:00 97.5 78 21 167/74 (105) 100 08/22/19 15:41 180/80 08/22/19 15:38 96 21 180/80 (113) 100 08/22/19 15:00 100.5 71 21 100 08/22/19 14:55 78 22 24 08/22/19 12:00 79 08/22/19 12:00 Mechanical Ventilator Mechanical Ventilator 08/22/19 12:00 24 08/22/19 12:00 99.0 72 21 138/62 (87) 100 08/22/19 11:45 78 19 24 08/22/19 09:00 76 146/67 08/22/19 09:00 146/67 08/22/19 08:00 77 08/22/19 08:00 24 08/22/19 08:00 Mechanical Ventilator Mechanical Ventilator 08/22/19 08:00 99.5 76 21 146/67 (93) 100 08/22/19 07:45 86 20 24 08/22/19 04:00 Mechanical Ventilator Mechanical Ventilator 08/22/19 04:00 24 08/22/19 04:00 98.1 78 21 151/75 (100) 100 08/22/19 03:42 76 08/22/19 03:00 76 19 24 08/22/19 00:00 Mechanical Ventilator Mechanical Ventilator 08/22/19 00:00 24 08/22/19 00:00 99.2 67 20 144/64 (90) 100 08/22/19 00:00 67 Intake and Output 08/21/19 08/22/19 19:00 07:00 Intake Total 735 ml 645 ml Output Total 350 ml 400 ml Balance 385 ml 245 ml Free Water 150 ml 50 ml IV Total 55 ml Tube Feeding 585 ml 540 ml Output Urine Total 300 ml 300 ml Stool Total 50 ml 100 ml Laboratory Tests 08/22/19 03:55: White Blood Count 24.1*H, Red Blood Count 2.79L, Hemoglobin 7.6L, Hematocrit 24.1L, Mean Corpuscular Volume 86, Mean Corpuscular Hemoglobin 27.2, Mean Corpuscular Hemoglobin Concent 31.5L, Red Cell Distribution Width 17.6H, Platelet Count 204, Mean Platelet Volume 6.5, Neutrophils (%) (Auto) , Lymphocytes (%) (Auto) , Monocytes (%) (Auto) , Eosinophils (%) (Auto) , Basophils (%) (Auto) , Differential Total Cells Counted 100, Neutrophils % ( Manual) 73, Lymphocytes % (Manual) 12L, Monocytes % (Manual) 5, Eosinophils % ( Manual) 10H, Basophils % (Manual) 0, Band Neutrophils 0, Platelet Estimate Adequate, Platelet Morphology Normal, Hypochromasia 3+, Anisocytosis 2+, Sodium Level 141, Potassium Level 3.4L, Chloride Level 104, Carbon Dioxide Level 27, Anion Gap 10, Blood Urea Nitrogen 65H, Creatinine 3.0H, Estimat Glomerular Filtration Rate 20.3, Glucose Level 167H, Calcium Level 8.2L, Phosphorus Level 0.9*L 08/22/19 12:41: POC Whole Blood Glucose 162H 08/22/19 16:58: POC Whole Blood Glucose 153H Height (Feet): 6 Height (Inches): 7 Weight (Pounds): 166 Objective Debilitated AA man NCAT (+) trach coarse BS RR abd distended, anasarca, (+) GT ext (+) edema contracted Ronny Mustafa MD Aug 22, 2019 23:03
[2019-08-23] VITALS: BP 144/65
[2019-08-23] MEDS: NovoLOG Insulin Flexpen SUBQ SCH ×5 (00:39→23:04)
--- NOTE | 2019-08-23 01:00 | NUR ---
NURSE NOTES: Pt provided with a bed bath, oral care, linen change and wound care per orders. ROM exercises provided per patient tolerance. Pt tolerated care well. Bedside assessment performed, assessed pt for pain using FLACC scale with a score of 0 noted. Pt repositioned for comfort and safety. VS obtained and noted to be stable at this time. Fall, Aspiration and Skin precautions observed. Pt remains resting in bed; Bed remains in the lowest position with the safety wheels engaged, call light within reach, side rails up x3 and bed alarm activated. Will continue plan of care. Will continue to monitor.
[2019-08-23 04:00] VITALS: BP 146/59
--- NOTE | 2019-08-23 05:00 | NUR ---
NURSE NOTES: Bedside assessment performed. Pt noted to be sleeping at this time. Assessed pt for pain using FLACC scale with a score of 0 noted. Pt repositioned for comfort and safety. VS obtained and noted to be stable at this time. Temperature now noted to be 98.6F, no further cooling measures indicated. Temperature at 00:00 noted to be 99.1F. Fall, Aspiration and Skin precautions observed. Pt remains resting in bed; Bed remains in the lowest position with the safety wheels engaged, call light within reach, side rails up x3 and bed alarm activated. Will continue plan of care. Will continue to monitor.
--- NOTE | 2019-08-23 07:20 | NUR ---
NURSE NOTES:RECEIVED BED SIDE REPORT FROM VALERIE DAVEY STAFF OF [employer] SPECIALIST. RECEIVED PT WITH HOB ELEVATED 45 DEGREE ,OBTUNDED TRACH TO VENT DEPENDENT .PT TOLERATING WELL CURRENTS VENT SETTINGS,O2 SAT 98%. RENDERED TRACH CARE AND ORAL HYGIENE, LG AMT OF WHITE TICK SECRETIONS NOTED.PT WITH GTF TOLERATING WELL NEPHRO 1.8 @ 40CC/HRS,NO RESIDUAL NOTED AT THIS TIME.PT WITH RECTAL TUBE IN PLACE SCAN AMT OF LIQUID BROWN STOOLS NOTED.PT REPOSITIONED IN BED TO PROVIDE COMFORT AND TO PREVENT FURTHERS SKIN BREAK DOWN.FULL BODY ASSESSMENT DONE. NO ACUTE DISTRESS NOTED AT THIS TIME. WILL CONT TO MONITOR.
--- NOTE | 2019-08-23 07:34 | NUR ---
HAND-OFF: HAND-OFF: Report given to TAMICA Rueda. Endorsed plan of care.
[2019-08-23 08:00] VITALS: BP 175/75
--- NOTE | 2019-08-23 08:10 | Hematology/Onc Progress Note ---
Assessment/Plan Assessment/Plan Assessment/recs # Leukocytosis - with multiple infections, VRE UTI --> wbc trend 33-->28-->25->23->22->23->24 --> on abx, linezolid and zosyn--> zosyn --> + blood cultures with coag neg staph likely contaminated --> as per id recs --> has ordered a flow cytometry (with pathology) --> does show increased nK cell activity --> JOURDAN 2 and bcr-abl labs ordered (these are send outs) # Anemia due to chronic disease/kidney disease as well, gi bleed + occult + noted --> was on iron in the past, now on hold --> has been started on epogen --> as per renal care --> egd done and shows gastritis --> on ppi --> egd showed gastritis, colo recently done --> hgb 9-->8.7-->7.6 # Respiratory failure --> per pulm, s/p trach --> COVID 19 test negative x 2 # Dysphagia s/p gtube with nepro --> per gi # ESRD with r fem julito --> hd as per renal # Dvt ppx scds Appreciate consultation and matt Rn Subjective HEENT: Denies: no symptoms, eye pain, blurred vision, tearing, double vision, ear pain, ear discharge, nose pain, nose congestion, throat pain, throat swelling, mouth pain, mouth swelling, other Cardiovascular: Denies: no symptoms, chest pain, edema, irregular heart rate, lightheadedness, palpitations, syncope, other Respiratory: Denies: no symptoms, cough, shortness of breath, SOB with excertion, SOB at rest, sputum, wheezing, other Gastrointestinal/Abdominal: Denies: no symptoms, abdomen distended, abdominal pain, black stools, tarry stools, blood in stool, constipated, diarrhea, difficulty swallowing, nausea, poor appetite, poor fluid intake, rectal bleeding , vomiting, other Neurologic/Psychiatric: Denies: no symptoms, anxiety, depressed, emotional problems, headache, numbness, paresthesia, pre-existing deficit, seizure, tingling, tremors, weakness, other Endocrine: Denies: no symptoms, excessive sweating, flushing, intolerance to cold, intolerance to heat, increased hunger, increased thirst, increased urine, unexplained weight gain, unexplained weight loss, other Allergies: Coded Allergies: No Known Allergies (Unverified , 06/10/19) Subjective 08/15 meds noted, no bleeding, hgb 8.8, wbc 28, path flow pending 08/16 flow pending dw pathologist, results pending, wbc 25, hgb 9 08/17 labs reviewed, meds reviewed, meds noted, no night sweats 08/19 remains obtunded, on vent/trach, no bleeding wbc 21.7 08/20 labs have been reviewed, no bleeding, wbc still elev, path reviewed 08/21 labs are noted, no bleeding, on vent, wbc better 08/22 labs noted, no bleeding, meds reviewed, wbc 24 hgb 7.6 Objective Objective Current Medications Medications (Trade) Dose Ordered Sig/Leonel Route PRN Reason Start Time Stop Time Status Last Admin Dose Admin Acetaminophen (Tylenol) 650 mg Q4H PRN GT Mild Pain / fever 08/09/19 05:30 09/08/19 05:29 08/21/19 12:15 Al Hydroxide/Mg Hydroxide (Mylanta) 30 ml FOUR TIMES A DAY PRN GT constipation 08/09/19 06:00 09/08/19 05:29 Ascorbic Acid (Vitamin C) 500 mg DAILY GT 08/09/19 09:00 09/08/19 08:59 08/22/19 09:24 Atorvastatin Calcium (Lipitor) 40 mg BEDTIME GT 08/09/19 21:00 11/07/19 20:59 08/22/19 20:11 Chlorhexidine Gluconate (Felipa-Hex 2%) 1 applic DAILY@1999 TOPIC 08/15/19 20:00 11/13/19 19:59 08/22/19 20:11 Clonidine HCl (Catapres Tab) 0.1 mg Q4H PRN GT SBP>150 08/12/19 10:45 11/10/19 06:44 08/22/19 15:41 Dextrose (Dextrose 50%) 25 ml Q30M PRN IV Hypoglycemia 08/09/19 07:30 11/07/19 07:29 Dextrose (Dextrose 50%) 50 ml Q30M PRN IV Hypoglycemia 08/09/19 07:30 11/07/19 07:29 Epoetin Andreas (Epoetin Andreas(ESRD on dialysis)) 10,000 unit WED-WED-WED SUBQ 08/18/19 21:00 11/16/19 20:59 08/21/19 20:26 Insulin Aspart (NovoLOG) Q6HR SUBQ 08/10/19 00:00 11/07/19 11:29 08/23/19 05:02 Lansoprazole (Prevacid) 30 mg DAILY GT 08/09/19 09:00 09/08/19 08:59 08/22/19 09:24 Loperamide HCl (Imodium) 2 mg Q4H PRN GT Diarrhea 08/09/19 08:00 09/08/19 07:59 08/22/19 17:53 Metoprolol Tartrate (Lopressor) 200 mg Q12HR GT 08/09/19 09:00 11/07/19 08:59 08/22/19 20:11 Minoxidil (Loniten) 5 mg DAILY GT 08/09/19 09:00 11/07/19 08:59 08/21/19 08:34 Multivitamins (Multivitamins W/ Minerals 15ml Liquid) 15 ml DAILY GT 08/09/19 09:00 09/08/19 08:59 08/22/19 09:25 Vitamin B Complex/ Vit C/Folic Acid (Nephrovite) 1 tab DAILY GT 08/09/19 09:00 09/08/19 08:59 08/22/19 09:24 Vitamin D (Vitamin D) 1,000 intlu DAILY GT 08/09/19 09:00 09/08/19 08:59 08/22/19 09:24 Zinc Oxide (Zinc Oxide) 1 applic BID TOPIC 08/10/19 18:00 11/08/19 17:59 08/22/19 17:55 Last 24 Hour Vital Signs Date Time Temp Pulse Resp B/P (MAP) Pulse Ox O2 Delivery O2 Flow Rate FiO2 08/23/19 07:29 74 19 24 08/23/19 04:00 24 08/23/19 04:00 98.8 77 24 146/59 (88) 100 08/23/19 04:00 Mechanical Ventilator 08/23/19 03:36 73 08/23/19 03:07 71 21 24 08/23/19 00:00 99.1 65 19 144/65 (91) 100 08/23/19 00:00 24 08/23/19 00:00 Mechanical Ventilator 08/22/19 23:37 65 08/22/19 23:30 69 20 24 08/22/19 20:11 73 155/66 08/22/19 20:00 97.3 73 21 146/64 (91) 100 08/22/19 20:00 24 08/22/19 20:00 Mechanical Ventilator 08/22/19 19:39 71 08/22/19 19:20 70 23 24 08/22/19 16:00 24 08/22/19 16:00 75 08/22/19 16:00 Mechanical Ventilator Mechanical Ventilator 08/22/19 16:00 97.5 78 21 167/74 (105) 100 08/22/19 15:41 180/80 08/22/19 15:38 96 21 180/80 (113) 100 08/22/19 15:00 100.5 71 21 100 08/22/19 14:55 78 22 24 08/22/19 12:00 79 08/22/19 12:00 Mechanical Ventilator Mechanical Ventilator 08/22/19 12:00 24 08/22/19 12:00 99.0 72 21 138/62 (87) 100 08/22/19 11:45 78 19 24 08/22/19 09:00 76 146/67 08/22/19 09:00 146/67 08/22/19 08:00 77 08/22/19 08:00 24 08/22/19 08:00 Mechanical Ventilator Mechanical Ventilator 08/22/19 08:00 99.5 76 21 146/67 (93) 100 08/22/19 07:45 86 20 24 08/22/19 04:00 Mechanical Ventilator Mechanical Ventilator 08/22/19 04:00 24 08/22/19 04:00 98.1 78 21 151/75 (100) 100 08/22/19 03:42 76 08/22/19 03:00 76 19 24 08/22/19 00:00 Mechanical Ventilator Mechanical Ventilator 08/22/19 00:00 24 08/22/19 00:00 99.2 67 20 144/64 (90) 100 08/22/19 00:00 67 08/21/19 22:48 66 19 24 08/21/19 20:26 72 159/68 08/21/19 20:25 72 22 159/68 (98) 100 08/21/19 20:00 98.5 73 21 152/66 (94) 100 08/21/19 20:00 24 08/21/19 20:00 Mechanical Ventilator Mechanical Ventilator 08/21/19 19:09 72 08/21/19 19:08 76 20 24 08/21/19 16:00 Mechanical Ventilator Mechanical Ventilator 08/21/19 16:00 97.9 66 20 130/86 (101) 100 08/21/19 16:00 25 08/21/19 16:00 64 08/21/19 15:10 62 15 24 08/21/19 12:00 98.4 66 20 149/73 (98) 100 08/21/19 12:00 25 08/21/19 12:00 62 08/21/19 12:00 Mechanical Ventilator Mechanical Ventilator 08/21/19 11:00 62 15 24 08/21/19 08:35 68 151/74 08/21/19 08:34 151/74 Intake and Output 08/22/19 08/23/19 19:00 07:00 Intake Total 750 ml 555 ml Output Total 2100 ml 150 ml Balance -1350 ml 405 ml Free Water 100 ml 60 ml IV Total 110 ml Tube Feeding 540 ml 495 ml Output Urine Total 100 ml 100 ml Stool Total 0 ml 50 ml Hemodialysis UF 2000 ml Labs Test 08/20/19 12:12 08/20/19 17:18 08/20/19 23:30 08/21/19 05:12 POC Whole Blood Glucose 158 MG/DL (74-106) 168 MG/DL (74-106) Test 08/21/19 09:00 08/21/19 12:11 08/21/19 18:01 08/22/19 03:55 White Blood Count 22.7 K/UL (4.8-10.8) 24.1 K/UL (4.8-10.8) Red Blood Count 3.09 M/UL (4.70-6.10) 2.79 M/UL (4.70-6.10) Hemoglobin 8.4 G/DL (14.2-18.0) 7.6 G/DL (14.2-18.0) Hematocrit 27.1 % (42.0-52.0) 24.1 % (42.0-52.0) Mean Corpuscular Volume 88 FL (80-99) 86 FL (80-99) Mean Corpuscular Hemoglobin 27.2 PG (27.0-31.0) 27.2 PG (27.0-31.0) Mean Corpuscular Hemoglobin Concent 31.0 G/DL (32.0-36.0) 31.5 G/DL (32.0-36.0) Red Cell Distribution Width 17.6 % (11.6-14.8) 17.6 % (11.6-14.8) Platelet Count 193 K/UL (150-450) 204 K/UL (150-450) Mean Platelet Volume 6.0 FL (6.5-10.1) 6.5 FL (6.5-10.1) Neutrophils (%) (Auto) % (45.0-75.0) % (45.0-75.0) Lymphocytes (%) (Auto) % (20.0-45.0) % (20.0-45.0) Monocytes (%) (Auto) % (1.0-10.0) % (1.0-10.0) Eosinophils (%) (Auto) % (0.0-3.0) % (0.0-3.0) Basophils (%) (Auto) % (0.0-2.0) % (0.0-2.0) Differential Total Cells Counted 100 100 Neutrophils % (Manual) 72 % (45-75) 73 % (45-75) Lymphocytes % (Manual) 15 % (20-45) 12 % (20-45) Monocytes % (Manual) 7 % (1-10) 5 % (1-10) Eosinophils % (Manual) 6 % (0-3) 10 % (0-3) Basophils % (Manual) 0 % (0-2) 0 % (0-2) Band Neutrophils 0 % (0-8) 0 % (0-8) Platelet Estimate Adequate Adequate Platelet Morphology Normal Normal Hypochromasia 1+ 3+ Anisocytosis 1+ 2+ Sodium Level 141 MMOL/L (136-145) 141 MMOL/L (136-145) Potassium Level 3.4 MMOL/L (3.5-5.1) 3.4 MMOL/L (3.5-5.1) Chloride Level 105 MMOL/L (98-107) 104 MMOL/L (98-107) Carbon Dioxide Level 29 MMOL/L (21-32) 27 MMOL/L (21-32) Anion Gap 8 mmol/L (5-15) 10 mmol/L (5-15) Blood Urea Nitrogen 58 mg/dL (7-18) 65 mg/dL (7-18) Creatinine 2.8 MG/DL (0.55-1.30) 3.0 MG/DL (0.55-1.30) Estimat Glomerular Filtration Rate 22.0 mL/min (>60) 20.3 mL/min (>60) Glucose Level 207 MG/DL (74-106) 167 MG/DL (74-106) Calcium Level 8.4 MG/DL (8.5-10.1) 8.2 MG/DL (8.5-10.1) Total Bilirubin 0.3 MG/DL (0.2-1.0) Aspartate Amino Transf (AST/SGOT) 38 U/L (15-37) Alanine Aminotransferase (ALT/SGPT) 21 U/L (12-78) Alkaline Phosphatase 241 U/L (46-116) Total Protein 7.2 G/DL (6.4-8.2) Albumin 1.4 G/DL (3.4-5.0) Globulin 5.8 g/dL Albumin/Globulin Ratio 0.2 (1.0-2.7) Phosphorus Level 0.9 MG/DL (2.5-4.9) Test 08/22/19 12:41 08/22/19 16:58 08/23/19 00:38 08/23/19 04:56 POC Whole Blood Glucose 162 MG/DL (74-106) 153 MG/DL (74-106) 187 MG/DL (74-106) 149 MG/DL (74-106) Height (Feet): 6 Height (Inches): 7 Weight (Pounds): 166 Objective Physical Exam General Appearance: nad, Chronically Ill Head: normocephalic Eyes: right eye PERRL - Will not open left eye ENT: moist mucus membranes Neck: other - submandibular mass R, fairly rigid with resistance to rotation to L, tracheotomy Respiratory: decreased breath sounds, crackles, other - pacemaker Cardiovascular: regular rate, rhythm, edema - anasarca Gastrointestinal: non tender, distended, other - G tube Genitourinary: other Musculoskeletal: other - Contractures all extremities Neurologic: sensory intact, motor weakness, responsive Psychiatric: other Skin: Decubitus/Ulcer - Stage III right elbow, stage III left elbow, stage II sacrum, stage III scrotum, warm/dry Fitz Campos MD Aug 23, 2019 08:10
[2019-08-23] MEDS: Minoxidil 2.5mg tab GT SCH (09:24)
[2019-08-23] MEDS: Ascorbic Acid 500mg tab GT SCH (09:24)
[2019-08-23] MEDS: Nephrovite tab (Rena-Vite) GT SCH (09:25)
[2019-08-23] MEDS: Metoprolol Tartrate 100mg tab GT SCH ×2 (09:25→20:15)
[2019-08-23] MEDS: Vitamin D 1000 IU Tab GT SCH (09:25)
[2019-08-23] MEDS: Zinc Oxide Oint 2oz TOPIC SCH ×2 (09:25→18:33)
[2019-08-23] MEDS: Multivitamins W/Minerals 15 ML UDC GT SCH (09:26)
--- NOTE | 2019-08-23 10:45 | Infectious Diseases Prog Note ---
Assessment/Plan Assessment/Plan antibiotics : none A 1. VRE UTI s/p rx 2. + blood cultures with coag neg staph likely contaminated 3. respiratory failure 4. leucocytosis 5. group G streptococcus, providencia, pseudomonas, serratia pneumonia s/p rx COVID 19 test negative x 2 6. renal failure on HD P 1. sputum culture 2. observe off antibiotics 3. will follow up cultures Subjective ROS Limited/Unobtainable: Yes Allergies: Coded Allergies: No Known Allergies (Unverified , 06/10/19) Objective Last 24 Hour Vital Signs Date Time Temp Pulse Resp B/P (MAP) Pulse Ox O2 Delivery O2 Flow Rate FiO2 08/23/19 09:25 74 175/75 08/23/19 09:24 175/75 08/23/19 08:00 99.0 74 19 175/75 (108) 100 08/23/19 08:00 Mechanical Ventilator 08/23/19 08:00 24 08/23/19 07:29 74 19 24 08/23/19 04:00 24 08/23/19 04:00 98.8 77 24 146/59 (88) 100 08/23/19 04:00 Mechanical Ventilator 08/23/19 03:36 73 08/23/19 03:07 71 21 24 08/23/19 00:00 99.1 65 19 144/65 (91) 100 08/23/19 00:00 24 08/23/19 00:00 Mechanical Ventilator 08/22/19 23:37 65 08/22/19 23:30 69 20 24 08/22/19 20:11 73 155/66 08/22/19 20:00 97.3 73 21 146/64 (91) 100 08/22/19 20:00 24 08/22/19 20:00 Mechanical Ventilator 08/22/19 19:39 71 08/22/19 19:20 70 23 24 08/22/19 16:00 24 08/22/19 16:00 75 08/22/19 16:00 Mechanical Ventilator Mechanical Ventilator 08/22/19 16:00 97.5 78 21 167/74 (105) 100 08/22/19 15:41 180/80 08/22/19 15:38 96 21 180/80 (113) 100 08/22/19 15:00 100.5 71 21 100 08/22/19 14:55 78 22 24 08/22/19 12:00 79 08/22/19 12:00 Mechanical Ventilator Mechanical Ventilator 08/22/19 12:00 24 08/22/19 12:00 99.0 72 21 138/62 (87) 100 08/22/19 11:45 78 19 24 Height (Feet): 6 Height (Inches): 7 Weight (Pounds): 166 HEENT: status post trach Respiratory/Chest: lungs clear Cardiovascular: normal rate, regular rhythm, no gallop/murmur Abdomen: soft, non tender, other - GT Extremities: other - + edema Microbiology Date/Time Source Procedure Growth Status 08/22/19 02:35 Stool Clostridium difficile Toxin Assay - Final Complete Laboratory Tests Test 08/22/19 12:41 08/22/19 16:58 08/23/19 00:38 08/23/19 04:56 POC Whole Blood Glucose 162 MG/DL (74-106) H 153 MG/DL (74-106) H 187 MG/DL (74-106) H 149 MG/DL (74-106) H Current Medications Medications (Trade) Dose Ordered Sig/Leonel Route PRN Reason Start Time Stop Time Status Last Admin Dose Admin Acetaminophen (Tylenol) 650 mg Q4H PRN GT Mild Pain / fever 08/09/19 05:30 09/08/19 05:29 08/21/19 12:15 Al Hydroxide/Mg Hydroxide (Mylanta) 30 ml FOUR TIMES A DAY PRN GT constipation 08/09/19 06:00 09/08/19 05:29 Ascorbic Acid (Vitamin C) 500 mg DAILY GT 08/09/19 09:00 09/08/19 08:59 08/23/19 09:24 Atorvastatin Calcium (Lipitor) 40 mg BEDTIME GT 08/09/19 21:00 11/07/19 20:59 08/22/19 20:11 Chlorhexidine Gluconate (Felipa-Hex 2%) 1 applic DAILY@1999 TOPIC 08/15/19 20:00 11/13/19 19:59 08/22/19 20:11 Clonidine HCl (Catapres Tab) 0.1 mg Q4H PRN GT SBP>150 08/12/19 10:45 11/10/19 06:44 08/22/19 15:41 Dextrose (Dextrose 50%) 25 ml Q30M PRN IV Hypoglycemia 08/09/19 07:30 11/07/19 07:29 Dextrose (Dextrose 50%) 50 ml Q30M PRN IV Hypoglycemia 08/09/19 07:30 11/07/19 07:29 Epoetin Andreas (Epoetin Andreas(ESRD on dialysis)) 10,000 unit WED- SUBQ 08/18/19 21:00 11/16/19 20:59 08/21/19 20:26 Insulin Aspart (NovoLOG) Q6HR SUBQ 08/10/19 00:00 11/07/19 11:29 08/23/19 05:02 Lansoprazole (Prevacid) 30 mg DAILY GT 08/09/19 09:00 09/08/19 08:59 08/23/19 09:24 Loperamide HCl (Imodium) 2 mg Q4H PRN GT Diarrhea 08/09/19 08:00 09/08/19 07:59 08/22/19 17:53 Metoprolol Tartrate (Lopressor) 200 mg Q12HR GT 08/09/19 09:00 11/07/19 08:59 08/23/19 09:25 Minoxidil (Loniten) 5 mg DAILY GT 08/09/19 09:00 11/07/19 08:59 08/23/19 09:24 Multivitamins (Multivitamins W/ Minerals 15ml Liquid) 15 ml DAILY GT 08/09/19 09:00 09/08/19 08:59 08/23/19 09:26 Vitamin B Complex/ Vit C/Folic Acid (Nephrovite) 1 tab DAILY GT 08/09/19 09:00 09/08/19 08:59 08/23/19 09:25 Vitamin D (Vitamin D) 1,000 intlu DAILY GT 08/09/19 09:00 09/08/19 08:59 08/23/19 09:25 Zinc Oxide (Zinc Oxide) 1 applic BID TOPIC 08/10/19 18:00 11/08/19 17:59 08/23/19 09:25 Farnaz Lyle MD Aug 23, 2019 10:44
--- NOTE | 2019-08-23 11:44 | NUR ---
CASE MANAGEMENT: REVIEW SI: RIGHT LOWER LOBE PNA . ESRD on HD TUNNEL CATH PLACEMENT T 99.0 HR 74 RR 19 BP 175/75 SAT 100% MECH VENT FIO2 24 WBC 24.1 H/H 7.6/24.1 GLUCOSE 149 IS: ZOSYN IV Q12HR EPOETIN SUBQ QMWF HEPARIN IV PRN HD HD NEEDED TRANSFUSE PRBC PATIENT ADMITTED TO STEP DOWN UNIT DCP: PATIENT IS FROM [facility]
--- NOTE | 2019-08-23 11:58 | NUR ---
CASE MANAGEMENT: MOISE SPOKE WITH [facility] [phone] REGARDING TRANSFERRING THE PATIENT TO [facility] SHE STATED NO BEDS AVAILABLE AT [place] REQUESTED TRANSFER TO [facility]. SHE REQUESTED APPROVAL FROM THE [facility] BUT REQUEST WAS DENIED.
[2019-08-23 12:00] VITALS: BP 133/62
--- NOTE | 2019-08-23 12:29 | Nephrology Progress Note ---
Assessment/Plan Plan Sepsis - IV Abx Skin wounds - wound care Pre ESRD - HD now TTS. Subjective Subjective Obtunded Objective Objective Last 24 Hour Vital Signs Date Time Temp Pulse Resp B/P (MAP) Pulse Ox O2 Delivery O2 Flow Rate FiO2 08/23/19 12:00 24 08/23/19 12:00 99.0 65 18 133/62 (85) 99 08/23/19 12:00 67 08/23/19 12:00 Mechanical Ventilator 08/23/19 10:57 65 17 24 08/23/19 09:25 74 175/75 08/23/19 09:24 175/75 08/23/19 08:00 99.0 74 19 175/75 (108) 100 08/23/19 08:00 Mechanical Ventilator 08/23/19 08:00 75 08/23/19 08:00 24 08/23/19 07:29 74 19 24 08/23/19 04:00 24 08/23/19 04:00 98.8 77 24 146/59 (88) 100 08/23/19 04:00 Mechanical Ventilator 08/23/19 03:36 73 08/23/19 03:07 71 21 24 08/23/19 00:00 99.1 65 19 144/65 (91) 100 08/23/19 00:00 24 08/23/19 00:00 Mechanical Ventilator 08/22/19 23:37 65 08/22/19 23:30 69 20 24 08/22/19 20:11 73 155/66 08/22/19 20:00 97.3 73 21 146/64 (91) 100 08/22/19 20:00 24 08/22/19 20:00 Mechanical Ventilator 08/22/19 19:39 71 08/22/19 19:20 70 23 24 08/22/19 16:00 24 08/22/19 16:00 75 08/22/19 16:00 Mechanical Ventilator Mechanical Ventilator 08/22/19 16:00 97.5 78 21 167/74 (105) 100 08/22/19 15:41 180/80 08/22/19 15:38 96 21 180/80 (113) 100 08/22/19 15:00 100.5 71 21 100 08/22/19 14:55 78 22 24 Intake and Output 08/22/19 08/23/19 19:00 07:00 Intake Total 750 ml 555 ml Output Total 2100 ml 150 ml Balance -1350 ml 405 ml Free Water 100 ml 60 ml IV Total 110 ml Tube Feeding 540 ml 495 ml Output Urine Total 100 ml 100 ml Stool Total 0 ml 50 ml Hemodialysis UF 2000 ml Laboratory Tests 08/22/19 12:41: POC Whole Blood Glucose 162H 08/22/19 16:58: POC Whole Blood Glucose 153H 08/23/19 00:38: POC Whole Blood Glucose 187H 08/23/19 04:56: POC Whole Blood Glucose 149H Height (Feet): 6 Height (Inches): 7 Weight (Pounds): 166 Objective CV RR Trach clean Lungs CTA Abd SNT. BS + E No CCE Erica Pichardo MD Aug 23, 2019 12:29
--- NOTE | 2019-08-23 14:48 | NUR ---
*-* INSURANCE *-* UPDATED CLINICALS AND REVIEWS HAVE BEEN FAXED TO: [facility] P:[phone] F:[phone]
[2019-08-23 16:00] VITALS: BP 99/52
--- NOTE | 2019-08-23 17:06 | Surgery Progress Note ---
Surgery Progress Note Subjective Procedure Performed Right femoral temporary hemodialysis catheter insertion Symptoms: voiding well, passing flatus, other Objective Last 24 Hour Vital Signs Date Time Temp Pulse Resp B/P (MAP) Pulse Ox O2 Delivery O2 Flow Rate FiO2 08/23/19 15:28 69 21 24 08/23/19 12:00 24 08/23/19 12:00 99.0 65 18 133/62 (85) 99 08/23/19 12:00 67 08/23/19 12:00 Mechanical Ventilator 08/23/19 10:57 65 17 24 08/23/19 09:25 74 175/75 08/23/19 09:24 175/75 08/23/19 08:00 99.0 74 19 175/75 (108) 100 08/23/19 08:00 Mechanical Ventilator 08/23/19 08:00 75 08/23/19 08:00 24 08/23/19 07:29 74 19 24 08/23/19 04:00 24 08/23/19 04:00 98.8 77 24 146/59 (88) 100 08/23/19 04:00 Mechanical Ventilator 08/23/19 03:36 73 08/23/19 03:07 71 21 24 08/23/19 00:00 99.1 65 19 144/65 (91) 100 08/23/19 00:00 24 08/23/19 00:00 Mechanical Ventilator 08/22/19 23:37 65 08/22/19 23:30 69 20 24 08/22/19 20:11 73 155/66 08/22/19 20:00 97.3 73 21 146/64 (91) 100 08/22/19 20:00 24 08/22/19 20:00 Mechanical Ventilator 08/22/19 19:39 71 08/22/19 19:20 70 23 24 I&O Intake and Output 08/22/19 08/23/19 19:00 07:00 Intake Total 750 ml 555 ml Output Total 2100 ml 150 ml Balance -1350 ml 405 ml Free Water 100 ml 60 ml IV Total 110 ml Tube Feeding 540 ml 495 ml Output Urine Total 100 ml 100 ml Stool Total 0 ml 50 ml Hemodialysis UF 2000 ml Dressing: dry Wound: clean Cardiovascular: RSR Respiratory: clear, decreased breath sounds Abdomen: non-tender, present bowel sounds Extremities: no tenderness, no cyanosis Laboratory Tests Test 08/23/19 00:38 08/23/19 04:56 08/23/19 13:05 POC Whole Blood Glucose 187 MG/DL (74-106) H 149 MG/DL (74-106) H 179 MG/DL (74-106) H Plan Problems: (1) Anemia (2) Hyponatremia (3) Leukocytosis Assessment & Plan: Tracheostomy, left chest pacemaker are again demonstrated. There is bilateral interstitial and airspace disease and bilateral pleural fluid again demonstrated. This appears more severe than on the prior study. Bilateral interstitial and airspace infiltrates versus edema. Bilateral pleural effusions Leukocytosis, anemia, tachycardia, abnormal labs. Wound evaluated and likely etiology of patient's sepsis. Leukocytosis etiology work-up antibiotics per infectious disease Appreciate nephrology input transfuse with dialysis We will follow with recommendations thank you allowing participation's care plan HD access temp HD discussed with medical teams line okay HD as per renal persistent leukocytosis flow cyto noted (4) Ventilator dependent (5) Right lower lobe pneumonia (6) Hypokalemia (7) Hyperkalemia (8) Anasarca (9) Decubitus skin ulcer Assessment & Plan: pt presented on admission with generalized edemae.Skin assessed under tracheostomy and no areas of concerns noted. GT Insertion is marginally erythematous with small amt slough at stoma. Unstageable Pressure Injury R elbow. Base of wound is 100% yellow slough, Borders are erythematous. Wound oozing small amt haemopurulent exudate.Darker skin tone without elevation in skin temp or erythema periwound. Pt's penis and scrotum are grossly edematous and enlarged and weeping serous exudate from numerous sites both from penis and scrotum. Two small open wounds noted at base of at base of shaft of penis ,and contreras aspect of scrotum. Both wounds oozing large amt sanguineous and serosanguineous exudate. Multiple open wounds with Biofilm at base of each wounds noted to contreras/lateral,inferior and posterior aspects of scrotum. These wounds noted to be oozing moderate amts of serosanguineous exudate. Hypertrophic scar with scattered areas of hyperpigmentation noted to Sacrum. DTPI noted to L Buttocks (L)7cm x (W)9cm. Base of wound is purple and indurated.Darker skin tone without erythema, induration or fluctuance R and L ischial tuberosities. Both heels are boggy with non-blanchable erythema. Tx.Plan: Cleanse wound R elbow with Saline. Apply TheraHoney, Apply Moisture Barrier Paste periwound. Cover with Optifoam drsg.Change Daily and prn. Wash GT site with soap and water.Pat dry. Apply Zinc Oxide Paste to GT site Daily. Leave Open to Air. Apply Zinc Oxide Paste to entire Scrotum, Place ABD pads to R and L lateral, and posterior aspects of scrotum TWICE daily. Apply Cavilon Skin Barrier to malleoli and both Heels. Cover each site with Optifoam drsgs. Change every 7 days and prn. Reposition at least every 2hours or as tolerated. Off-load heels with Pillows. APM/BECCA Mattress overlay. (10) Malnutrition Assessment & Plan: DAILY ESTIMATED NEEDS: Needs based on Renal, critical care, wound/ 61kg 22-28 kcals/kg 0900-5008 total kcals 1-1.25 (increase w/ renal improvement) g protein/kg 61-76 g total protein 20-25 mL/kg 6757-6643 total fluid mLs NUTRITION DIAGNOSIS: * Swallowing difficulty R/T respiratory failure, dysphagia as evidenced by trach/vent dep, PEG dep * Increased kcal/prot needs R/T wound healing as evidenced by admitted w/ multiple pressure injuries per photos, pending eval. CURRENT TF:Nepro @ 45ml/hr x 24 hrs ENTERAL NUTRITION RECOMMENDATIONS: NEPRO to 45ml/hr x 20 hrs to provide 900ml, 1620kcal, 73g prot, 654ml free water * Maintain current TF * HOB over 30 degrees/ water flush per MD ADDITIONAL RECOMMENDATIONS: * Per SNF: HT=63" QN=967 lbs (Vs EMR wt of 165lbs) -> obtain re-calibrated bedscale wt * Wound healing: add Nephrovite x 1 + Vit C 250mg QD add Garo 1pkt BID via GT * Monitor renal fxn and lytes, check phos level (11) Uremia (12) CKD (chronic kidney disease) stage 5, GFR less than 15 ml/min (13) Colon distention Assessment & Plan: discussed with GI likely functional as having lots of loose bm rectal tube kub f/u Marked distention of the sigmoid colon. 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 No evidence of bowel wall thickening or pneumatosis 12 mm focus of contrast enhancement in the right pectineus muscle. While nonspecific in appearance, appearance raises concern for a possible pseudoaneurysm. Ill- defined thickening of the pectus medius muscle could indicate some intramuscular hemorrhage. The above findings were phoned to Dr. Urias at the time of interpretation Large bilateral pleural effusions Hazy pulmonary parenchymal opacities as well as dense consolidative opacities most likely represent pulmonary edema, but could represent pneumonia Evidence of anasarca elsewhere, with generalized edema of the subcutaneous fat Bladder wall thickening, raises concern for cystitis. Avalos catheter in place Colonic diverticulosis. No evidence of diverticulitis. Tracheostomy Pacemaker Gastrostomy Jonathan Urias Aug 23, 2019 17:06
--- NOTE | 2019-08-23 18:51 | NUR ---
RESPIRATORY NOTE: Received pt on AC 15, 450VT, 24%, PEEP +5. Pt is trach-dependent w/ a cuffed, Portex 8 tube. Pt flat effect/obtunded. B/S ovi. rhonchi/diminished, sxn minimal amounts of thick/thin, pale-yellow secretions. Vent plugged into red outlet, ambubag at bedside. Pt in no apparent distress at this time. Will continue plan of care.
--- NOTE | 2019-08-23 19:00 | NUR ---
NURSE NOTES: Received patient and report from TAMICA Rueda. Patient is observed resting in bed and remains obtunded. No pain noted upon assessment. Pt is currently trach to vent; vent settings as follows: AC 15 TV 450 FiO2 25 PEEP 5 with an O2 saturation of 99% noted. No s/sx of respiratory distress noted at this time. Bilateral lower lobe breath sounds noted to be diminished upon auscultation. Pt noted to be VPaced on tele monitor with no s/sx of acute distress noted. Avalos catheter noted which remains intact, patent and draining urine to gravity. Rectal tube noted with a small amount of brown, liquid stool in collection bag. R Femoral Rancho catheter noted which remains intact and patent. Central line dressing remains clean, dry and intact. G tube noted which remains intact and patent with 0mL residual noted, feeding infusing as prescribed. Bowel sounds noted in all four quadrants, abdomen remains large, firm, round and distended. Diagnostics reviewed at bedside. Skin alterations noted. Pt repositioned for comfort and safety. Fall, Aspiration and Skin precautions observed. Pt remains resting in bed; Bed remains in the lowest position with the safety wheels engaged, call light within reach, side rails up x3 and bed alarm activated. Will continue plan of care. Will continue to monitor.
--- NOTE | 2019-08-23 19:15 | NUR ---
HAND-OFF: Report given to .TALIA DAVEY.
[2019-08-23 20:00] VITALS: BP 132/61
[2019-08-23] MEDS: Epoetin Alfa-EPBX(ESRD on dialysis)10,000 unit/ml vial SUBQ SCH (20:15)
[2019-08-23] MEDS: Atorvastatin 20mg tab GT SCH (20:15)
[2019-08-23] MEDS: Dyna-Hex 2% Top Sol 2oz TOPIC SCH (20:15)
--- NOTE | 2019-08-23 22:56 | General Progress Note ---
Assessment/Plan Assessment/Plan: Assessment - sigmoid distention on CT - suspect functional - Anemia - Black stools - stool OB (+) - EGD --> gastritis, Colonoscopy --> not planned since done recently - Renal failure - Sepsis / leukocytosis - Anasarca - resp failure, trach - dysphagia, GT - encephalopathy, contracted - Diarrhea, C Diff (-) x 2 - poor px Recommendations - continue TF - Iron panel noted - re check C Diff since high risk - negative - PPI - abx - supportive care Subjective Allergies: Coded Allergies: No Known Allergies (Unverified , 06/10/19) Subjective Above noted no events overnight d/w staffing mgr NAD tolerating feeds small volume loose BM Objective Last 24 Hour Vital Signs Date Time Temp Pulse Resp B/P (MAP) Pulse Ox O2 Delivery O2 Flow Rate FiO2 08/23/19 20:15 77 132/61 08/23/19 20:00 24 08/23/19 20:00 Mechanical Ventilator 08/23/19 20:00 75 08/23/19 20:00 98.2 77 16 132/61 (84) 100 08/23/19 18:48 75 22 24 08/23/19 16:00 70 08/23/19 16:00 98.2 69 16 99/52 (68) 100 08/23/19 16:00 Mechanical Ventilator 08/23/19 16:00 24 08/23/19 15:28 69 21 24 08/23/19 12:00 24 08/23/19 12:00 99.0 65 18 133/62 (85) 99 08/23/19 12:00 67 08/23/19 12:00 Mechanical Ventilator 08/23/19 10:57 65 17 24 08/23/19 09:25 74 175/75 08/23/19 09:24 175/75 08/23/19 08:00 99.0 74 19 175/75 (108) 100 08/23/19 08:00 Mechanical Ventilator 08/23/19 08:00 75 08/23/19 08:00 24 08/23/19 07:29 74 19 24 08/23/19 04:00 24 08/23/19 04:00 98.8 77 24 146/59 (88) 100 08/23/19 04:00 Mechanical Ventilator 08/23/19 03:36 73 08/23/19 03:07 71 21 24 08/23/19 00:00 99.1 65 19 144/65 (91) 100 08/23/19 00:00 24 08/23/19 00:00 Mechanical Ventilator 08/22/19 23:37 65 08/22/19 23:30 69 20 24 Intake and Output 08/22/19 08/23/19 19:00 07:00 Intake Total 750 ml 600 ml Output Total 2100 ml 150 ml Balance -1350 ml 450 ml Free Water 100 ml 60 ml IV Total 110 ml Tube Feeding 540 ml 540 ml Output Urine Total 100 ml 100 ml Stool Total 0 ml 50 ml Hemodialysis UF 2000 ml Laboratory Tests 08/23/19 00:38: POC Whole Blood Glucose 187H 08/23/19 04:56: POC Whole Blood Glucose 149H 08/23/19 13:05: POC Whole Blood Glucose 179H 08/23/19 18:31: POC Whole Blood Glucose 177H Height (Feet): 6 Height (Inches): 7 Weight (Pounds): 166 Objective Debilitated AA man NCAT (+) trach coarse BS RR abd distended, anasarca, (+) GT ext (+) edema contracted Ronny Mustafa MD Aug 23, 2019 22:56
[2019-08-23] MEDS: Acetaminophen 650mg/20.3ml GT PRN (23:35)
[2019-08-24] VITALS: BP 133/66
--- NOTE | 2019-08-24 01:00 | NUR ---
NURSE NOTES: Pt provided with a bed bath, oral care, linen change and wound care per orders. ROM exercises provided per patient tolerance. Pt tolerated care well. Bedside assessment performed, assessed pt for pain using FLACC scale with a score of 3 noted. PRN Tylenol administered as ordered. No adverse effects noted. Will continue to reassess patient for pain. Pt repositioned for comfort and safety. VS obtained and noted to be stable at this time. Fall, Aspiration and Skin precautions observed. Pt remains resting in bed; Bed remains in the lowest position with the safety wheels engaged, call light within reach, side rails up x3 and bed alarm activated. Will continue plan of care. Will continue to monitor.
[2019-08-24 04:00] VITALS: BP 144/71
--- NOTE | 2019-08-24 05:00 | NUR ---
NURSE NOTES: Scheduled Insulin held for patient safety; parameters noted to be out of range. Bedside assessment performed. Pt noted to be sleeping at this time. Assessed pt for pain using FLACC scale with a score of 0 noted. Pt provided with a partial bed bath, oral care and suctioning for excess secretions. Sputum culture sample obtained and delivered to lab for analysis. Pt repositioned for comfort and safety. VS obtained and noted to be stable at this time. Fall, Aspiration and Skin precautions observed. Pt remains resting in bed; Bed remains in the lowest position with the safety wheels engaged, call light within reach, side rails up x3 and bed alarm activated. Will continue plan of care. Will continue to monitor.
[2019-08-24] MEDS: NovoLOG Insulin Flexpen SUBQ SCH ×4 (05:24→23:03)
[2019-08-24] MEDS ORDERED: Heparin Sod 1000 units/ml 10ml IV PRN (06:00)
[2019-08-24] MEDS ORDERED: Heparin 1000 units/ml 1ml Vial INJ PRN (06:00)
--- NOTE | 2019-08-24 06:38 | NUR ---
NURSE NOTES: Dr Campos at bedside to assess patient. Launderer Hand at bedside to discuss patient condition. Per nutrition recommendations decrease Nepro to 40mL/hr, sufficient for caloric intake and will help with diarrhea. Will endorse to oncoming shift to confirm with MD davies to decrease Nepro rate. Will continue to monitor.
[2019-08-24 06:39] LABS: BASOPHILS % (AUTO) 0.7 % (0.0-2.0); EOSINOPHILS % (AUTO) 6.6 % (0.0-3.0); HEMATOCRIT 29.2 % (42.0-52.0); HEMOGLOBIN 9.2 G/DL (14.2-18.0); MEAN CORPUSCULAR VOLUME 86 FL (80-99); MONOCYTES % (AUTO) 10.3 % (1.0-10.0); NEUTROPHILS % (AUTO) 70.4 % (45.0-75.0); PLATELET COUNT 278 K/UL (150-450); RED BLOOD COUNT 3.39 M/UL (4.70-6.10); RED CELL DISTRIBUTION WIDTH 16.8 % (11.6-14.8); WHITE BLOOD COUNT 17.3 K/UL (4.8-10.8)
--- NOTE | 2019-08-24 07:10 | NUR ---
NURSE NOTES: Report given to TAMICA Rueda. Endorsed plan of care.
--- NOTE | 2019-08-24 07:18 | NUR ---
NURSE NOTES: RECEIVED REPORT FROM TALIA BAKER [employer]F [employer] INSPECTOR. RECEIVED PT WITH HOB ELEVATED 45 DEGREE OBTUNDED ,TRACH TO VENT DEPENDENT.PT TRACH PATENT INTACT AT MID-LINE AND WELL SECURE.RENDERED TRACH CARE AND ORAL HYGIENE ,MOD AMT OF WHITE TICK SECRETIONS NOTED. PT RECEIVING GTF NEPHRO 1.8 @ 45CC/HRS ,NO RESIDUAL NOTED. F/C DRAINING SM AMT OF YELLOW COLOR 10ML NOTED AT THIS TIME. PT ON SCHEDULE FOR H.D THIS AM ,HELD BLOOD B/P MED,S AT THIS PER REQUEST OF DIALYSIS NURSE MORGAN. FULL BODY ASSESSMENT DONE. PT REPOSITIONED Q2HRS TO PROVIDE COMFORT AND TO PREVENT FURTHER SKIN BREAK DOWN. NO ACUTE DISTRESS NOTED AT THIS TIME. WILL CONT TO MONITOR.
[2019-08-24 07:23] LABS: ANION GAP 7 mmol/L (5-15); BLOOD UREA NITROGEN 55 mg/dL (7-18); CALCIUM 8.8 MG/DL (8.5-10.1); CARBON DIOXIDE 27 MMOL/L (21-32); CHLORIDE 107 MMOL/L (98-107); CREATININE 2.5 MG/DL (0.55-1.30); POTASSIUM 3.7 MMOL/L (3.5-5.1); SODIUM 141 MMOL/L (136-145)
[2019-08-24] MEDS ORDERED: Tubing IV Blood Pump IV ONE (07:28)
[2019-08-24] MEDS ORDERED: NS 275ml ONE (07:28)
[2019-08-24 08:00] VITALS: BP 139/74
--- NOTE | 2019-08-24 08:33 | Infectious Diseases Prog Note ---
Assessment/Plan Assessment/Plan A: 1. Pneumonia treated COVID19 X2 : negative 2. Renal failure, ESRD 3. Leukocytosis improving 4. Respiratory failure, Ventilator dependent 5. Anemia 6. Anasarca 7. 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 Observe off antibiotic 2. Negative stool c.difficile test Subjective ROS Limited/Unobtainable: Yes Constitutional: Reports: fever, other - Hy=958.2 Allergies: Coded Allergies: No Known Allergies (Unverified , 06/10/19) Objective Last 24 Hour Vital Signs Date Time Temp Pulse Resp B/P (MAP) Pulse Ox O2 Delivery O2 Flow Rate FiO2 08/24/19 04:00 97.9 69 18 144/71 (95) 99 08/24/19 04:00 Mechanical Ventilator 08/24/19 04:00 24 08/24/19 04:00 68 08/24/19 03:19 69 17 24 08/24/19 00:00 71 08/24/19 00:00 24 08/24/19 00:00 Mechanical Ventilator 08/24/19 00:00 100.2 72 19 133/66 (88) 98 08/23/19 22:58 71 19 24 08/23/19 20:15 77 132/61 08/23/19 20:00 24 08/23/19 20:00 Mechanical Ventilator 08/23/19 20:00 75 08/23/19 20:00 98.2 77 16 132/61 (84) 100 08/23/19 18:48 75 22 24 08/23/19 16:00 70 08/23/19 16:00 98.2 69 16 99/52 (68) 100 08/23/19 16:00 Mechanical Ventilator 08/23/19 16:00 24 08/23/19 15:28 69 21 24 08/23/19 12:00 24 08/23/19 12:00 99.0 65 18 133/62 (85) 99 08/23/19 12:00 67 08/23/19 12:00 Mechanical Ventilator 08/23/19 10:57 65 17 24 08/23/19 09:25 74 175/75 08/23/19 09:24 175/75 Height (Feet): 6 Height (Inches): 7 Weight (Pounds): 166 HEENT: status post trach Respiratory/Chest: lungs clear, other - on ventilator Cardiovascular: normal rate Abdomen: soft, non tender, other - GT feeding Extremities: other - edema of legs Neurologic/Psychiatric: unresponsiveness Microbiology Date/Time Source Procedure Growth Status 08/22/19 02:35 Stool Clostridium difficile Toxin Assay - Final Complete Laboratory Tests Test 08/23/19 13:05 08/23/19 18:31 08/23/19 23:01 08/24/19 03:10 POC Whole Blood Glucose 179 MG/DL (74-106) H 177 MG/DL (74-106) H Pending White Blood Count 17.3 K/UL (4.8-10.8) H Red Blood Count 3.39 M/UL (4.70-6.10) L Hemoglobin 9.2 G/DL (14.2-18.0) L Hematocrit 29.2 % (42.0-52.0) L Mean Corpuscular Volume 86 FL (80-99) Mean Corpuscular Hemoglobin 27.3 PG (27.0-31.0) Mean Corpuscular Hemoglobin Concent 31.7 G/DL (32.0-36.0) L Red Cell Distribution Width 16.8 % (11.6-14.8) H Platelet Count 278 K/UL (150-450) Mean Platelet Volume 7.0 FL (6.5-10.1) Neutrophils (%) (Auto) 70.4 % (45.0-75.0) Lymphocytes (%) (Auto) 12.0 % (20.0-45.0) L Monocytes (%) (Auto) 10.3 % (1.0-10.0) H Eosinophils (%) (Auto) 6.6 % (0.0-3.0) H Basophils (%) (Auto) 0.7 % (0.0-2.0) Sodium Level 141 MMOL/L (136-145) Potassium Level 3.7 MMOL/L (3.5-5.1) Chloride Level 107 MMOL/L (98-107) Carbon Dioxide Level 27 MMOL/L (21-32) Anion Gap 7 mmol/L (5-15) Blood Urea Nitrogen 55 mg/dL (7-18) H Creatinine 2.5 MG/DL (0.55-1.30) H Estimat Glomerular Filtration Rate 25.1 mL/min (>60) Glucose Level 120 MG/DL (74-106) H Calcium Level 8.8 MG/DL (8.5-10.1) Test 08/24/19 05:20 POC Whole Blood Glucose Pending Current Medications Medications (Trade) Dose Ordered Sig/Leonel Route PRN Reason Start Time Stop Time Status Last Admin Dose Admin Acetaminophen (Tylenol) 650 mg Q4H PRN GT Mild Pain / fever 08/09/19 05:30 09/08/19 05:29 08/23/19 23:35 Al Hydroxide/Mg Hydroxide (Mylanta) 30 ml FOUR TIMES A DAY PRN GT constipation 08/09/19 06:00 09/08/19 05:29 Ascorbic Acid (Vitamin C) 500 mg DAILY GT 08/09/19 09:00 09/08/19 08:59 08/23/19 09:24 Atorvastatin Calcium (Lipitor) 40 mg BEDTIME GT 08/09/19 21:00 11/07/19 20:59 08/23/19 20:15 Chlorhexidine Gluconate (Felipa-Hex 2%) 1 applic DAILY@2000 TOPIC 08/15/19 20:00 11/13/19 19:59 08/23/19 20:15 Clonidine HCl (Catapres Tab) 0.1 mg Q4H PRN GT SBP>150 08/12/19 10:45 11/10/19 06:44 08/22/19 15:41 Dextrose (Dextrose 50%) 25 ml Q30M PRN IV Hypoglycemia 08/09/19 07:30 11/07/19 07:29 Dextrose (Dextrose 50%) 50 ml Q30M PRN IV Hypoglycemia 08/09/19 07:30 11/07/19 07:29 Epoetin Andreas (Epoetin Andreas(ESRD on dialysis)) 10,000 unit WED-WED-WED SUBQ 08/18/19 21:00 11/16/19 20:59 08/23/19 20:15 Heparin Sodium (Porcine) (Heparin Sod 1000 units/ml 10ml) 2,000 unit ONCE PRN IV HD 08/24/19 06:00 08/24/19 23:59 Heparin Sodium (Porcine) (Heparin) 1,000 unit POSTHD PRN INJ POST HD 08/24/19 06:00 08/24/19 23:59 Insulin Aspart (NovoLOG) Q6HR SUBQ 08/10/19 00:00 11/07/19 11:29 08/23/19 23:04 Lansoprazole (Prevacid) 30 mg DAILY GT 08/09/19 09:00 09/08/19 08:59 08/23/19 09:24 Loperamide HCl (Imodium) 2 mg Q4H PRN GT Diarrhea 08/09/19 08:00 09/08/19 07:59 08/22/19 17:53 Metoprolol Tartrate (Lopressor) 200 mg Q12HR GT 08/09/19 09:00 11/07/19 08:59 08/23/19 20:15 Minoxidil (Loniten) 5 mg DAILY GT 08/09/19 09:00 11/07/19 08:59 08/23/19 09:24 Multivitamins (Multivitamins W/ Minerals 15ml Liquid) 15 ml DAILY GT 08/09/19 09:00 09/08/19 08:59 08/23/19 09:26 Sodium Chloride 1,000 ml @ 500 mls/hr Q2H PRN IVLG sbp<90 during hd 08/24/19 06:00 08/24/19 23:59 Vitamin B Complex/ Vit C/Folic Acid (Nephrovite) 1 tab DAILY GT 08/09/19 09:00 09/08/19 08:59 08/23/19 09:25 Vitamin D (Vitamin D) 1,000 intlu DAILY GT 08/09/19 09:00 09/08/19 08:59 08/23/19 09:25 Zinc Oxide (Zinc Oxide) 1 applic BID TOPIC 08/10/19 18:00 11/08/19 17:59 08/23/19 18:33 Real De Leon MD Aug 24, 2019 08:33
[2019-08-24] MEDS: Metoprolol Tartrate 100mg tab GT SCH ×2 (09:00→20:15)
[2019-08-24] MEDS: Minoxidil 2.5mg tab GT SCH (09:00)
[2019-08-24] MEDS: Ascorbic Acid 500mg tab GT SCH (09:38)
[2019-08-24] MEDS: Nephrovite tab (Rena-Vite) GT SCH (09:38)
[2019-08-24] MEDS: Multivitamins W/Minerals 15 ML UDC GT SCH (09:38)
[2019-08-24] MEDS: Vitamin D 1000 IU Tab GT SCH (09:39)
[2019-08-24] MEDS: Zinc Oxide Oint 2oz TOPIC SCH ×2 (09:40→17:59)
--- NOTE | 2019-08-24 10:00 | NUR ---
NURSE NOTES: PT RECEIVING H.D ,TOLERATING WELL ,NO ACUTE DISTRESS NOTED AT THIS TIME. WILL CONT TO MONITOR.
--- NOTE | 2019-08-24 10:28 | General Progress Note ---
Assessment/Plan Assessment/Plan: Assessment - sigmoid distention on CT - suspect functional - Anemia - stool OB (+) - EGD --> gastritis, Colonoscopy --> not planned since done recently - Renal failure - Sepsis / leukocytosis - Anasarca - resp failure, trach - dysphagia, GT - encephalopathy, contracted - Diarrhea, C Diff (-) x 2 - poor px Recommendations - continue TF - Iron panel noted - re check C Diff since high risk - negative - PPI - abx - supportive care Subjective Allergies: Coded Allergies: No Known Allergies (Unverified , 06/10/19) Subjective Above noted no events overnight NAD tolerating feeds Objective Last 24 Hour Vital Signs Date Time Temp Pulse Resp B/P (MAP) Pulse Ox O2 Delivery O2 Flow Rate FiO2 08/24/19 08:00 97.0 74 18 139/74 (95) 99 08/24/19 08:00 Mechanical Ventilator 08/24/19 08:00 24 08/24/19 07:47 70 15 24 08/24/19 04:00 97.9 69 18 144/71 (95) 99 08/24/19 04:00 Mechanical Ventilator 08/24/19 04:00 24 08/24/19 04:00 68 08/24/19 03:19 69 17 24 08/24/19 00:00 71 08/24/19 00:00 24 08/24/19 00:00 Mechanical Ventilator 08/24/19 00:00 100.2 72 19 133/66 (88) 98 08/23/19 22:58 71 19 24 08/23/19 20:15 77 132/61 08/23/19 20:00 24 08/23/19 20:00 Mechanical Ventilator 08/23/19 20:00 75 08/23/19 20:00 98.2 77 16 132/61 (84) 100 08/23/19 18:48 75 22 24 08/23/19 16:00 70 08/23/19 16:00 98.2 69 16 99/52 (68) 100 08/23/19 16:00 Mechanical Ventilator 08/23/19 16:00 24 08/23/19 15:28 69 21 24 08/23/19 12:00 24 08/23/19 12:00 99.0 65 18 133/62 (85) 99 08/23/19 12:00 67 08/23/19 12:00 Mechanical Ventilator 08/23/19 10:57 65 17 24 Intake and Output 08/23/19 08/24/19 19:00 07:00 Intake Total 690 ml 585 ml Output Total 30 ml 175 ml Balance 660 ml 410 ml Free Water 150 ml 90 ml Tube Feeding 540 ml 495 ml Output Urine Total 150 ml Stool Total 30 ml 25 ml # Bowel Movements 20 Laboratory Tests 08/23/19 13:05: POC Whole Blood Glucose 179H 08/23/19 18:31: POC Whole Blood Glucose 177H 08/23/19 23:01: POC Whole Blood Glucose [Pending] 08/24/19 03:10: White Blood Count 17.3H, Red Blood Count 3.39L, Hemoglobin 9.2L, Hematocrit 29.2L, Mean Corpuscular Volume 86, Mean Corpuscular Hemoglobin 27.3, Mean Corpuscular Hemoglobin Concent 31.7L, Red Cell Distribution Width 16.8H, Platelet Count 278, Mean Platelet Volume 7.0, Neutrophils (%) (Auto) 70.4, Lymphocytes (%) (Auto) 12.0L, Monocytes (%) (Auto) 10.3H, Eosinophils (%) (Auto ) 6.6H, Basophils (%) (Auto) 0.7, Sodium Level 141, Potassium Level 3.7, Chloride Level 107, Carbon Dioxide Level 27, Anion Gap 7, Blood Urea Nitrogen 55H, Creatinine 2.5H, Estimat Glomerular Filtration Rate 25.1, Glucose Level 120H, Calcium Level 8.8 08/24/19 05:20: POC Whole Blood Glucose [Pending] Height (Feet): 6 Height (Inches): 7 Weight (Pounds): 166 Objective Debilitated AA man NCAT (+) trach coarse BS RR abd distended, anasarca, (+) GT ext (+) edema contracted Ronny Mustafa MD Aug 24, 2019 10:28
--- NOTE | 2019-08-24 10:50 | NUR ---
RD ASSESSMENT & RECOMMENDATIONS SEE CARE ACTIVITY FOR COMPLETE ASSESSMENT DAILY ESTIMATED NEEDS: Needs based on Renal, critical care, wound/ 61kg 22-30 kcals/kg 8117-3216 total kcals 1.25-2 g protein/kg 76-122 g total protein Fluid per MD, now on HD mL/kg . total fluid mLs NUTRITION DIAGNOSIS: * Swallowing difficulty R/T respiratory failure, dysphagia as evidenced by trach/vent dep, PEG dep * Increased kcal/prot needs R/T wound healing as evidenced by admitted w/ multiple pressure injuries including full thickness wounds at junction of Shaft of penis, dorsal scrotum, R elbow, and DTPI @ L buttocks. CURRENT TF:Nepro @ 45ml/hr x 24 hrs ENTERAL NUTRITION RECOMMENDATIONS: NEPRO @ 40ml/hr x 24 hrs to provide 960ml, 1728kcal , 78g prot, 697ml free water * Decrease goal rate to 40ml/hr x 24hrs -> meets 100% est kcal/prot needs * HOB over 30 degrees/ water flush per MD ADDITIONAL RECOMMENDATIONS: * Per SNF: HT=63" TL=738 lbs (Vs EMR wt of 166lbs) -> obtain re-calibrated bedscale wt, rec daily wt monitoring * Wound healing: continue Nephrovite x 1 and Garo BID Vit C dosing per Nephro * Monitor renal fxn and lytes-> pt now on HD rec checking f/up phos and mag (last levels low) * Add probiotics to help alleviate diarrhea
--- NOTE | 2019-08-24 11:43 | NUR ---
DISCHARGE PLANNING: NOTE F/U CALL PLACED TO HARPER OF [facility] [place] T: [phone] PER HARPER JANENE-CC IS AT CAPACITY TODAY. LTACH IS NOT A COVERED BENEFIT OF THE PTs INSURANCE. WBCs ARE DOWNTRENDING. HARPER AND STORMY OF [facility] [place] WILL BE LOOKING FOR SUBACUTE FACILITIES. DORIS SUGGESTED [facility], [place], AND [facility] TO ADD TO THE LIST OF SUBACUTE FACILITIES. HARPER STATED SHE IS WILLING TO DO AN [facility]IS[place] AT THIS TIME W/ ANY ACCEPTING FACILITY. CLINICAL SNF PACKET FAXED TO [phone] FOR ASSISTANCE IN PLACEMENT Addendum: 08/24/19 at 1612 by Jessy Gonzalez CM POSSIBLE PLACEMENT OF PT AT [facility] ADDITIONAL CLINICALS REQUESTED WERE FAXED TO CATHR[facility] @ : [phone]
--- NOTE | 2019-08-24 11:47 | NUR ---
CASE MANAGEMENT: REVIEW 08/24/2019 SI:SEPSIS. RESP FAILURE VS: T 97 HR 74 RR 18 B/P 139/74 SATS 99% ON MECH VENT FIO2 24 LABS: WBC 17.3 BUN 55 CR 2.5 GLU 120 IS:LIPITOR GT QHS PREVACID GT QD LONITEN GT QD LOPRESSOR GT Q12H INSULIN ASPART SUBQ Q6H SDU PLAN OF CARE: HD TODAY DC PLANNING TO SUBACUTE FACILITIES PER INSURANCE Observe off antibiotic
--- NOTE | 2019-08-24 11:55 | NUR ---
INSURANCE PROGRESS NOTE AND REVIEW HAVE BEEN FAXED TO: ELIN P:[phone] F:[phone]
[2019-08-24 12:00] VITALS: BP 130/63
--- NOTE | 2019-08-24 12:59 | Surgery Progress Note ---
Surgery Progress Note Subjective Procedure Performed Right femoral temporary hemodialysis catheter insertion Additional Comments no acute events comfortable stable no n/v/f/c Objective Last 24 Hour Vital Signs Date Time Temp Pulse Resp B/P (MAP) Pulse Ox O2 Delivery O2 Flow Rate FiO2 08/24/19 12:00 99.2 78 20 130/63 (85) 98 08/24/19 12:00 Mechanical Ventilator 08/24/19 12:00 24 08/24/19 10:43 75 18 24 08/24/19 09:00 75 139/74 08/24/19 09:00 139/74 08/24/19 08:00 75 08/24/19 08:00 97.0 74 18 139/74 (95) 99 08/24/19 08:00 Mechanical Ventilator 08/24/19 08:00 24 08/24/19 07:47 70 15 24 08/24/19 04:00 97.9 69 18 144/71 (95) 99 08/24/19 04:00 Mechanical Ventilator 08/24/19 04:00 24 08/24/19 04:00 68 08/24/19 03:19 69 17 24 08/24/19 00:00 71 08/24/19 00:00 24 08/24/19 00:00 Mechanical Ventilator 08/24/19 00:00 100.2 72 19 133/66 (88) 98 08/23/19 22:58 71 19 24 08/23/19 20:15 77 132/61 08/23/19 20:00 24 08/23/19 20:00 Mechanical Ventilator 08/23/19 20:00 75 08/23/19 20:00 98.2 77 16 132/61 (84) 100 08/23/19 18:48 75 22 24 08/23/19 16:00 70 08/23/19 16:00 98.2 69 16 99/52 (68) 100 08/23/19 16:00 Mechanical Ventilator 08/23/19 16:00 24 08/23/19 15:28 69 21 24 I&O Intake and Output 08/23/19 08/24/19 19:00 07:00 Intake Total 690 ml 585 ml Output Total 30 ml 175 ml Balance 660 ml 410 ml Free Water 150 ml 90 ml Tube Feeding 540 ml 495 ml Output Urine Total 150 ml Stool Total 30 ml 25 ml # Bowel Movements 20 Dressing: other Wound: other Drains: other Cardiovascular: RSR Respiratory: decreased breath sounds Abdomen: soft, non-tender, present bowel sounds Extremities: no tenderness, no cyanosis Laboratory Tests Test 08/23/19 13:05 08/23/19 18:31 08/23/19 23:01 08/24/19 03:10 POC Whole Blood Glucose 179 MG/DL (74-106) H 177 MG/DL (74-106) H Pending White Blood Count 17.3 K/UL (4.8-10.8) H Red Blood Count 3.39 M/UL (4.70-6.10) L Hemoglobin 9.2 G/DL (14.2-18.0) L Hematocrit 29.2 % (42.0-52.0) L Mean Corpuscular Volume 86 FL (80-99) Mean Corpuscular Hemoglobin 27.3 PG (27.0-31.0) Mean Corpuscular Hemoglobin Concent 31.7 G/DL (32.0-36.0) L Red Cell Distribution Width 16.8 % (11.6-14.8) H Platelet Count 278 K/UL (150-450) Mean Platelet Volume 7.0 FL (6.5-10.1) Neutrophils (%) (Auto) 70.4 % (45.0-75.0) Lymphocytes (%) (Auto) 12.0 % (20.0-45.0) L Monocytes (%) (Auto) 10.3 % (1.0-10.0) H Eosinophils (%) (Auto) 6.6 % (0.0-3.0) H Basophils (%) (Auto) 0.7 % (0.0-2.0) Sodium Level 141 MMOL/L (136-145) Potassium Level 3.7 MMOL/L (3.5-5.1) Chloride Level 107 MMOL/L (98-107) Carbon Dioxide Level 27 MMOL/L (21-32) Anion Gap 7 mmol/L (5-15) Blood Urea Nitrogen 55 mg/dL (7-18) H Creatinine 2.5 MG/DL (0.55-1.30) H Estimat Glomerular Filtration Rate 25.1 mL/min (>60) Glucose Level 120 MG/DL (74-106) H Calcium Level 8.8 MG/DL (8.5-10.1) Test 08/24/19 05:20 08/24/19 12:15 POC Whole Blood Glucose Pending 151 MG/DL (74-106) H Plan Problems: (1) Anemia (2) Hyponatremia (3) Leukocytosis Assessment & Plan: Tracheostomy, left chest pacemaker are again demonstrated. There is bilateral interstitial and airspace disease and bilateral pleural fluid again demonstrated. This appears more severe than on the prior study. Bilateral interstitial and airspace infiltrates versus edema. Bilateral pleural effusions Leukocytosis, anemia, tachycardia, abnormal labs. Wound evaluated and likely etiology of patient's sepsis. Leukocytosis etiology work-up antibiotics per infectious disease Appreciate nephrology input transfuse with dialysis We will follow with recommendations thank you allowing participation's care plan HD access temp HD discussed with medical teams line okay HD as per renal persistent leukocytosis flow cyto noted (4) Ventilator dependent (5) Right lower lobe pneumonia (6) Hypokalemia (7) Hyperkalemia (8) Anasarca (9) Decubitus skin ulcer Assessment & Plan: pt presented on admission with generalized edemae.Skin assessed under tracheostomy and no areas of concerns noted. GT Insertion is marginally erythematous with small amt slough at stoma. Unstageable Pressure Injury R elbow. Base of wound is 100% yellow slough, Borders are erythematous. Wound oozing small amt haemopurulent exudate.Darker skin tone without elevation in skin temp or erythema periwound. Pt's penis and scrotum are grossly edematous and enlarged and weeping serous exudate from numerous sites both from penis and scrotum. Two small open wounds noted at base of at base of shaft of penis ,and contreras aspect of scrotum. Both wounds oozing large amt sanguineous and serosanguineous exudate. Multiple open wounds with Biofilm at base of each wounds noted to contreras/lateral,inferior and posterior aspects of scrotum. These wounds noted to be oozing moderate amts of serosanguineous exudate. Hypertrophic scar with scattered areas of hyperpigmentation noted to Sacrum. DTPI noted to L Buttocks (L)7cm x (W)9cm. Base of wound is purple and indurated.Darker skin tone without erythema, induration or fluctuance R and L ischial tuberosities. Both heels are boggy with non-blanchable erythema. Tx.Plan: Cleanse wound R elbow with Saline. Apply TheraHoney, Apply Moisture Barrier Paste periwound. Cover with Optifoam drsg.Change Daily and prn. Wash GT site with soap and water.Pat dry. Apply Zinc Oxide Paste to GT site Daily. Leave Open to Air. Apply Zinc Oxide Paste to entire Scrotum, Place ABD pads to R and L lateral, and posterior aspects of scrotum TWICE daily. Apply Cavilon Skin Barrier to malleoli and both Heels. Cover each site with Optifoam drsgs. Change every 7 days and prn. Reposition at least every 2hours or as tolerated. Off-load heels with Pillows. APM/BECCA Mattress overlay. (10) Malnutrition Assessment & Plan: DAILY ESTIMATED NEEDS: Needs based on Renal, critical care, wound/ 61kg 22-28 kcals/kg 2466-2159 total kcals 1-1.25 (increase w/ renal improvement) g protein/kg 61-76 g total protein 20-25 mL/kg 5983-7509 total fluid mLs NUTRITION DIAGNOSIS: * Swallowing difficulty R/T respiratory failure, dysphagia as evidenced by trach/vent dep, PEG dep * Increased kcal/prot needs R/T wound healing as evidenced by admitted w/ multiple pressure injuries per photos, pending eval. CURRENT TF:Nepro @ 45ml/hr x 24 hrs ENTERAL NUTRITION RECOMMENDATIONS: NEPRO to 45ml/hr x 20 hrs to provide 900ml, 1620kcal, 73g prot, 654ml free water * Maintain current TF * HOB over 30 degrees/ water flush per MD ADDITIONAL RECOMMENDATIONS: * Per SNF: HT=63" PQ=932 lbs (Vs EMR wt of 165lbs) -> obtain re-calibrated bedscale wt * Wound healing: add Nephrovite x 1 + Vit C 250mg QD add Garo 1pkt BID via GT * Monitor renal fxn and lytes, check phos level (11) Uremia (12) CKD (chronic kidney disease) stage 5, GFR less than 15 ml/min (13) Colon distention Assessment & Plan: discussed with GI likely functional as having lots of loose bm rectal tube kub f/u Marked distention of the sigmoid colon. 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 No evidence of bowel wall thickening or pneumatosis 12 mm focus of contrast enhancement in the right pectineus muscle. While nonspecific in appearance, appearance raises concern for a possible pseudoaneurysm. Ill- defined thickening of the pectus medius muscle could indicate some intramuscular hemorrhage. The above findings were phoned to Dr. Urias at the time of interpretation Large bilateral pleural effusions Hazy pulmonary parenchymal opacities as well as dense consolidative opacities most likely represent pulmonary edema, but could represent pneumonia Evidence of anasarca elsewhere, with generalized edema of the subcutaneous fat Bladder wall thickening, raises concern for cystitis. Avalos catheter in place Colonic diverticulosis. No evidence of diverticulitis. Tracheostomy Pacemaker Gastrostomy Jonathan Urias Aug 24, 2019 12:59
--- NOTE | 2019-08-24 13:30 | NUR ---
NURSE NOTES: H.D COMPLETED , 2000ML OUT PUT. PT TOLERATED WELL THE PROCEDURE,V/S STABLE. NO ACUTE DISTRESS NOTED AT THIS TIME. WILL CONT TO MONITOR.
--- NOTE | 2019-08-24 14:11 | Nephrology Progress Note ---
Assessment/Plan Plan Sepsis - IV Abx Skin wounds - wound care Pre ESRD - HD now TTS. Subjective Subjective Obtunded. On HD now. Objective Objective Last 24 Hour Vital Signs Date Time Temp Pulse Resp B/P (MAP) Pulse Ox O2 Delivery O2 Flow Rate FiO2 08/24/19 13:02 200/87 08/24/19 12:00 99.2 78 20 130/63 (85) 98 08/24/19 12:00 Mechanical Ventilator 08/24/19 12:00 24 08/24/19 10:43 75 18 24 08/24/19 09:00 75 139/74 08/24/19 09:00 139/74 08/24/19 08:00 75 08/24/19 08:00 97.0 74 18 139/74 (95) 99 08/24/19 08:00 Mechanical Ventilator 08/24/19 08:00 24 08/24/19 07:47 70 15 24 08/24/19 04:00 97.9 69 18 144/71 (95) 99 08/24/19 04:00 Mechanical Ventilator 08/24/19 04:00 24 08/24/19 04:00 68 08/24/19 03:19 69 17 24 08/24/19 00:00 71 08/24/19 00:00 24 08/24/19 00:00 Mechanical Ventilator 08/24/19 00:00 100.2 72 19 133/66 (88) 98 08/23/19 22:58 71 19 24 08/23/19 20:15 77 132/61 08/23/19 20:00 24 08/23/19 20:00 Mechanical Ventilator 08/23/19 20:00 75 08/23/19 20:00 98.2 77 16 132/61 (84) 100 08/23/19 18:48 75 22 24 08/23/19 16:00 70 08/23/19 16:00 98.2 69 16 99/52 (68) 100 08/23/19 16:00 Mechanical Ventilator 08/23/19 16:00 24 08/23/19 15:28 69 21 24 Intake and Output 08/23/19 08/24/19 19:00 07:00 Intake Total 690 ml 585 ml Output Total 30 ml 175 ml Balance 660 ml 410 ml Free Water 150 ml 90 ml Tube Feeding 540 ml 495 ml Output Urine Total 150 ml Stool Total 30 ml 25 ml # Bowel Movements 20 Laboratory Tests 08/23/19 18:31: POC Whole Blood Glucose 177H 08/23/19 23:01: POC Whole Blood Glucose [Pending] 08/24/19 03:10: White Blood Count 17.3H, Red Blood Count 3.39L, Hemoglobin 9.2L, Hematocrit 29.2L, Mean Corpuscular Volume 86, Mean Corpuscular Hemoglobin 27.3, Mean Corpuscular Hemoglobin Concent 31.7L, Red Cell Distribution Width 16.8H, Platelet Count 278, Mean Platelet Volume 7.0, Neutrophils (%) (Auto) 70.4, Lymphocytes (%) (Auto) 12.0L, Monocytes (%) (Auto) 10.3H, Eosinophils (%) (Auto ) 6.6H, Basophils (%) (Auto) 0.7, Sodium Level 141, Potassium Level 3.7, Chloride Level 107, Carbon Dioxide Level 27, Anion Gap 7, Blood Urea Nitrogen 55H, Creatinine 2.5H, Estimat Glomerular Filtration Rate 25.1, Glucose Level 120H, Calcium Level 8.8 08/24/19 05:20: POC Whole Blood Glucose [Pending] 08/24/19 12:15: POC Whole Blood Glucose 151H Height (Feet): 6 Height (Inches): 7 Weight (Pounds): 166 Objective CV RR Trach clean Lungs CTA Abd SNT. BS + E No CCE Erica Pichardo MD Aug 24, 2019 14:11
[2019-08-24 16:00] VITALS: BP 151/45
--- NOTE | 2019-08-24 17:02 | General Progress Note ---
Assessment/Plan Assessment/Plan: IMPRESSION: 1. anemia. 2. GI bleed. 3. Leukocytosis. 4. Probable sepsis. + BCX 5. Acute on chronic renal failure. 6. Hyponatremia. 7. Severe protein-calorie malnutrition. 8. Significantly elevated C-reactive protein concerning for infectious etiology. 9. Tracheostomy, G-tube. 10. Ventilator dependence. 11. anasarca with bilateral pleural effusion 12. Hematuria PLAN consideer LTAC care noted on vent surgical follow up monitor labs rate control monitor renal function: HD iv antibiotics care noted and reviewed remains ill difficult to place with need for HD and vent unstable impression, plan, and exam edited and reviewed in detail care discussed with RN Subjective Allergies: Coded Allergies: No Known Allergies (Unverified , 06/10/19) Subjective remains ill on vent on HD + hematuria and some rectal bleeding Objective Last 24 Hour Vital Signs Date Time Temp Pulse Resp B/P (MAP) Pulse Ox O2 Delivery O2 Flow Rate FiO2 08/24/19 16:00 24 08/24/19 16:00 Mechanical Ventilator 08/24/19 16:00 98.2 86 20 151/45 (80) 100 08/24/19 15:12 74 16 24 08/24/19 13:02 200/87 08/24/19 12:00 99.2 78 20 130/63 (85) 98 08/24/19 12:00 Mechanical Ventilator 08/24/19 12:00 24 08/24/19 12:00 78 08/24/19 10:43 75 18 24 08/24/19 09:00 75 139/74 08/24/19 09:00 139/74 08/24/19 08:00 75 08/24/19 08:00 97.0 74 18 139/74 (95) 99 08/24/19 08:00 Mechanical Ventilator 08/24/19 08:00 24 08/24/19 07:47 70 15 24 08/24/19 04:00 97.9 69 18 144/71 (95) 99 08/24/19 04:00 Mechanical Ventilator 08/24/19 04:00 24 08/24/19 04:00 68 08/24/19 03:19 69 17 24 08/24/19 00:00 71 08/24/19 00:00 24 08/24/19 00:00 Mechanical Ventilator 7/16/20 00:00 100.2 72 19 133/66 (88) 98 08/23/19 22:58 71 19 24 08/23/19 20:15 77 132/61 08/23/19 20:00 24 08/23/19 20:00 Mechanical Ventilator 08/23/19 20:00 75 08/23/19 20:00 98.2 77 16 132/61 (84) 100 08/23/19 18:48 75 22 24 Intake and Output 08/23/19 08/24/19 19:00 07:00 Intake Total 690 ml 630 ml Output Total 30 ml 175 ml Balance 660 ml 455 ml Free Water 150 ml 90 ml Tube Feeding 540 ml 540 ml Output Urine Total 150 ml Stool Total 30 ml 25 ml # Bowel Movements 20 Laboratory Tests 08/23/19 18:31: POC Whole Blood Glucose 177H 08/23/19 23:01: POC Whole Blood Glucose [Pending] 08/24/19 03:10: White Blood Count 17.3H, Red Blood Count 3.39L, Hemoglobin 9.2L, Hematocrit 29.2L, Mean Corpuscular Volume 86, Mean Corpuscular Hemoglobin 27.3, Mean Corpuscular Hemoglobin Concent 31.7L, Red Cell Distribution Width 16.8H, Platelet Count 278, Mean Platelet Volume 7.0, Neutrophils (%) (Auto) 70.4, Lymphocytes (%) (Auto) 12.0L, Monocytes (%) (Auto) 10.3H, Eosinophils (%) (Auto ) 6.6H, Basophils (%) (Auto) 0.7, Sodium Level 141, Potassium Level 3.7, Chloride Level 107, Carbon Dioxide Level 27, Anion Gap 7, Blood Urea Nitrogen 55H, Creatinine 2.5H, Estimat Glomerular Filtration Rate 25.1, Glucose Level 120H, Calcium Level 8.8 08/24/19 05:20: POC Whole Blood Glucose [Pending] 08/24/19 12:15: POC Whole Blood Glucose 151H Height (Feet): 6 Height (Inches): 7 Weight (Pounds): 166 Objective GENERAL: Ill-appearing male, chronically debilitated. HEENT: Tracheostomy in midline. Questionable fullness in the submandibular region. LUNGS: Coarse breath sounds. reduced breath sounds CARDIAC: S1, S2. Regular rate and rhythm. ABDOMEN: Soft. G-tube. EXTREMITIES: With noted edema. NEUROLOGICAL: Poorly responsive, weak diffusely. Kain Ramirez MD Aug 24, 2019 17:02
--- NOTE | 2019-08-24 18:46 | Hematology/Onc Progress Note ---
Assessment/Plan Assessment/Plan Assessment/recs # Leukocytosis - with multiple infections, VRE UTI --> wbc trend 33-->28-->25->23->22->23->24->17.3 --> on abx, linezolid and zosyn--> zosyn-->off --> + blood cultures with coag neg staph likely contaminated --> as per id recs --> has ordered a flow cytometry (with pathology) --> does show increased nK cell activity --> JOURDAN 2 and bcr-abl labs ordered (these are send outs) # Anemia due to chronic disease/kidney disease as well, gi bleed + occult + noted --> was on iron in the past, now on hold --> has been started on epogen --> as per renal care --> egd done and shows gastritis --> on ppi --> egd showed gastritis, colo recently done --> hgb 9-->8.7-->7.6-->9.2 # Respiratory failure --> per pulm, s/p trach --> COVID 19 test negative x 2 # Dysphagia s/p gtube with nepro --> per gi # ESRD with r fem julito --> hd as per renal # Dvt ppx scds Appreciate consultation and dw Rn Subjective Allergies: Coded Allergies: No Known Allergies (Unverified , 06/10/19) Subjective 08/15 meds noted, no bleeding, hgb 8.8, wbc 28, path flow pending 08/16 flow pending dw pathologist, results pending, wbc 25, hgb 9 08/17 labs reviewed, meds reviewed, meds noted, no night sweats 08/19 remains obtunded, on vent/trach, no bleeding wbc 21.7 08/20 labs have been reviewed, no bleeding, wbc still elev, path reviewed 08/21 labs are noted, no bleeding, on vent, wbc better 08/22 labs noted, no bleeding, meds reviewed, wbc 24 hgb 7.6 08/23 vent, off abx, c diff negative, h/h stable Objective Objective Current Medications Medications (Trade) Dose Ordered Sig/Leonel Route PRN Reason Start Time Stop Time Status Last Admin Dose Admin Acetaminophen (Tylenol) 650 mg Q4H PRN GT Mild Pain / fever 08/09/19 05:30 09/08/19 05:29 08/23/19 23:35 Al Hydroxide/Mg Hydroxide (Mylanta) 30 ml FOUR TIMES A DAY PRN GT constipation 08/09/19 06:00 09/08/19 05:29 Ascorbic Acid (Vitamin C) 500 mg DAILY GT 08/09/19 09:00 09/08/19 08:59 08/24/19 09:38 Atorvastatin Calcium (Lipitor) 40 mg BEDTIME GT 08/09/19 21:00 11/07/19 20:59 08/23/19 20:15 Chlorhexidine Gluconate (Felipa-Hex 2%) 1 applic DAILY@199908/15/19 20:00 11/13/19 19:59 08/23/19 20:15 Clonidine HCl (Catapres Tab) 0.1 mg Q4H PRN GT SBP>150 08/12/19 10:45 11/10/19 06:44 08/24/19 13:02 Dextrose (Dextrose 50%) 25 ml Q30M PRN IV Hypoglycemia 08/09/19 07:30 11/07/19 07:29 Dextrose (Dextrose 50%) 50 ml Q30M PRN IV Hypoglycemia 08/09/19 07:30 11/07/19 07:29 Epoetin Andreas (Epoetin Andreas(ESRD on dialysis)) 10,000 unit WED-WED-WED SUBQ 08/18/19 21:00 11/16/19 20:59 08/23/19 20:15 Heparin Sodium (Porcine) (Heparin Sod 1000 units/ml 10ml) 2,000 unit ONCE PRN IV HD 08/24/19 06:00 08/24/19 23:59 Heparin Sodium (Porcine) (Heparin) 1,000 unit POSTHD PRN INJ POST HD 08/24/19 06:00 08/24/19 23:59 Insulin Aspart (NovoLOG) Q6HR SUBQ 08/10/19 00:00 11/07/19 11:29 08/24/19 18:01 Lansoprazole (Prevacid) 30 mg DAILY GT 08/09/19 09:00 09/08/19 08:59 08/24/19 09:38 Loperamide HCl (Imodium) 2 mg Q4H PRN GT Diarrhea 08/09/19 08:00 09/08/19 07:59 08/22/19 17:53 Metoprolol Tartrate (Lopressor) 200 mg Q12HR GT 08/09/19 09:00 11/07/19 08:59 08/23/19 20:15 Minoxidil (Loniten) 5 mg DAILY GT 08/09/19 09:00 11/07/19 08:59 08/23/19 09:24 Multivitamins (Multivitamins W/ Minerals 15ml Liquid) 15 ml DAILY GT 08/09/19 09:00 09/08/19 08:59 08/24/19 09:38 Sodium Chloride 1,000 ml @ 500 mls/hr Q2H PRN IVLG sbp<90 during hd 08/24/19 06:00 08/24/19 23:59 Vitamin B Complex/ Vit C/Folic Acid (Nephrovite) 1 tab DAILY GT 08/09/19 09:00 09/08/19 08:59 08/24/19 09:38 Vitamin D (Vitamin D) 1,000 intlu DAILY GT 08/09/19 09:00 09/08/19 08:59 08/24/19 09:39 Zinc Oxide (Zinc Oxide) 1 applic BID TOPIC 08/10/19 18:00 11/08/19 17:59 08/24/19 17:59 Last 24 Hour Vital Signs Date Time Temp Pulse Resp B/P (MAP) Pulse Ox O2 Delivery O2 Flow Rate FiO2 08/24/19 16:00 24 08/24/19 16:00 Mechanical Ventilator 08/24/19 16:00 98.2 86 20 151/45 (80) 100 08/24/19 15:12 74 16 24 08/24/19 13:02 200/87 08/24/19 12:00 99.2 78 20 130/63 (85) 98 08/24/19 12:00 Mechanical Ventilator 08/24/19 12:00 24 08/24/19 12:00 78 08/24/19 10:43 75 18 24 08/24/19 09:00 75 139/74 08/24/19 09:00 139/74 08/24/19 08:00 75 08/24/19 08:00 97.0 74 18 139/74 (95) 99 08/24/19 08:00 Mechanical Ventilator 08/24/19 08:00 24 08/24/19 07:47 70 15 24 08/24/19 04:00 97.9 69 18 144/71 (95) 99 08/24/19 04:00 Mechanical Ventilator 08/24/19 04:00 24 08/24/19 04:00 68 08/24/19 03:19 69 17 24 08/24/19 00:00 71 08/24/19 00:00 24 08/24/19 00:00 Mechanical Ventilator 08/24/19 00:00 100.2 72 19 133/66 (88) 98 08/23/19 22:58 71 19 24 08/23/19 20:15 77 132/61 08/23/19 20:00 24 08/23/19 20:00 Mechanical Ventilator 08/23/19 20:00 75 08/23/19 20:00 98.2 77 16 132/61 (84) 100 08/23/19 18:48 75 22 24 08/23/19 16:00 70 08/23/19 16:00 98.2 69 16 99/52 (68) 100 08/23/19 16:00 Mechanical Ventilator 08/23/19 16:00 24 08/23/19 15:28 69 21 24 08/23/19 12:00 24 08/23/19 12:00 99.0 65 18 133/62 (85) 99 08/23/19 12:00 67 08/23/19 12:00 Mechanical Ventilator 08/23/19 10:57 65 17 24 08/23/19 09:25 74 175/75 08/23/19 09:24 175/75 08/23/19 08:00 99.0 74 19 175/75 (108) 100 08/23/19 08:00 Mechanical Ventilator 08/23/19 08:00 75 08/23/19 08:00 24 08/23/19 07:29 74 19 24 08/23/19 04:00 24 08/23/19 04:00 98.8 77 24 146/59 (88) 100 08/23/19 04:00 Mechanical Ventilator 08/23/19 03:36 73 08/23/19 03:07 71 21 24 08/23/19 00:00 99.1 65 19 144/65 (91) 100 08/23/19 00:00 24 08/23/19 00:00 Mechanical Ventilator 08/22/19 23:37 65 08/22/19 23:30 69 20 24 08/22/19 20:11 73 155/66 08/22/19 20:00 97.3 73 21 146/64 (91) 100 08/22/19 20:00 24 08/22/19 20:00 Mechanical Ventilator 08/22/19 19:39 71 08/22/19 19:20 70 23 24 Intake and Output 08/23/19 08/24/19 19:00 07:00 Intake Total 690 ml 630 ml Output Total 30 ml 175 ml Balance 660 ml 455 ml Free Water 150 ml 90 ml Tube Feeding 540 ml 540 ml Output Urine Total 150 ml Stool Total 30 ml 25 ml # Bowel Movements 20 Labs Test 08/22/19 03:55 08/22/19 12:41 08/22/19 16:58 08/23/19 00:38 White Blood Count 24.1 K/UL (4.8-10.8) Red Blood Count 2.79 M/UL (4.70-6.10) Hemoglobin 7.6 G/DL (14.2-18.0) Hematocrit 24.1 % (42.0-52.0) Mean Corpuscular Volume 86 FL (80-99) Mean Corpuscular Hemoglobin 27.2 PG (27.0-31.0) Mean Corpuscular Hemoglobin Concent 31.5 G/DL (32.0-36.0) Red Cell Distribution Width 17.6 % (11.6-14.8) Platelet Count 204 K/UL (150-450) Mean Platelet Volume 6.5 FL (6.5-10.1) Neutrophils (%) (Auto) % (45.0-75.0) Lymphocytes (%) (Auto) % (20.0-45.0) Monocytes (%) (Auto) % (1.0-10.0) Eosinophils (%) (Auto) % (0.0-3.0) Basophils (%) (Auto) % (0.0-2.0) Differential Total Cells Counted 100 Neutrophils % (Manual) 73 % (45-75) Lymphocytes % (Manual) 12 % (20-45) Monocytes % (Manual) 5 % (1-10) Eosinophils % (Manual) 10 % (0-3) Basophils % (Manual) 0 % (0-2) Band Neutrophils 0 % (0-8) Platelet Estimate Adequate Platelet Morphology Normal Hypochromasia 3+ Anisocytosis 2+ Sodium Level 141 MMOL/L (136-145) Potassium Level 3.4 MMOL/L (3.5-5.1) Chloride Level 104 MMOL/L (98-107) Carbon Dioxide Level 27 MMOL/L (21-32) Anion Gap 10 mmol/L (5-15) Blood Urea Nitrogen 65 mg/dL (7-18) Creatinine 3.0 MG/DL (0.55-1.30) Estimat Glomerular Filtration Rate 20.3 mL/min (>60) Glucose Level 167 MG/DL (74-106) Calcium Level 8.2 MG/DL (8.5-10.1) Phosphorus Level 0.9 MG/DL (2.5-4.9) POC Whole Blood Glucose 162 MG/DL (74-106) 153 MG/DL (74-106) 187 MG/DL (74-106) Test 08/23/19 04:56 08/23/19 13:05 08/23/19 18:31 08/23/19 23:01 POC Whole Blood Glucose 149 MG/DL (74-106) 179 MG/DL (74-106) 177 MG/DL (74-106) Test 08/24/19 03:10 08/24/19 05:20 08/24/19 12:15 08/24/19 17:57 White Blood Count 17.3 K/UL (4.8-10.8) Red Blood Count 3.39 M/UL (4.70-6.10) Hemoglobin 9.2 G/DL (14.2-18.0) Hematocrit 29.2 % (42.0-52.0) Mean Corpuscular Volume 86 FL (80-99) Mean Corpuscular Hemoglobin 27.3 PG (27.0-31.0) Mean Corpuscular Hemoglobin Concent 31.7 G/DL (32.0-36.0) Red Cell Distribution Width 16.8 % (11.6-14.8) Platelet Count 278 K/UL (150-450) Mean Platelet Volume 7.0 FL (6.5-10.1) Neutrophils (%) (Auto) 70.4 % (45.0-75.0) Lymphocytes (%) (Auto) 12.0 % (20.0-45.0) Monocytes (%) (Auto) 10.3 % (1.0-10.0) Eosinophils (%) (Auto) 6.6 % (0.0-3.0) Basophils (%) (Auto) 0.7 % (0.0-2.0) Sodium Level 141 MMOL/L (136-145) Potassium Level 3.7 MMOL/L (3.5-5.1) Chloride Level 107 MMOL/L (98-107) Carbon Dioxide Level 27 MMOL/L (21-32) Anion Gap 7 mmol/L (5-15) Blood Urea Nitrogen 55 mg/dL (7-18) Creatinine 2.5 MG/DL (0.55-1.30) Estimat Glomerular Filtration Rate 25.1 mL/min (>60) Glucose Level 120 MG/DL (74-106) Calcium Level 8.8 MG/DL (8.5-10.1) POC Whole Blood Glucose 151 MG/DL (74-106) 157 MG/DL (74-106) Height (Feet): 6 Height (Inches): 7 Weight (Pounds): 166 Objective Physical Exam General Appearance: nad, Chronically Ill Head: normocephalic Eyes: right eye PERRL - Will not open left eye ENT: moist mucus membranes Neck: other - submandibular mass R, fairly rigid with resistance to rotation to L, tracheotomy Respiratory: decreased breath sounds, crackles, other - pacemaker, vent+ Cardiovascular: regular rate, rhythm, edema - anasarca Gastrointestinal: non tender, distended, other - G tube Genitourinary: other Musculoskeletal: other - Contractures all extremities Neurologic: sensory intact, motor weakness, responsive Psychiatric: other Skin: Decubitus/Ulcer - Stage III right elbow, stage III left elbow, stage II sacrum, stage III scrotum, warm/dry Fitz Campos MD Aug 24, 2019 18:46
--- NOTE | 2019-08-24 19:05 | NUR ---
NURSE NOTES: Received patient and report from TAMICA Rueda. Patient is observed resting in bed and remains obtunded. No pain noted upon assessment. Pt is currently trach to vent; vent settings as follows: AC 15 TV 450 FiO2 24% PEEP 5 with an O2 saturation of 100% noted. No s/sx of respiratory distress noted at this time. Bilateral lower lobe breath sounds noted to be diminished upon auscultation. Pt noted to be VPaced on tele monitor with no s/sx of acute distress noted. Avalos catheter noted which remains intact, patent and draining urine to gravity. Rectal tube noted with a small amount of brown, liquid stool in collection bag. R Femoral Rancho catheter noted which remains intact and patent. Central line dressing remains clean, dry and intact. G tube noted which remains intact and patent with 10mL residual noted, feeding infusing as prescribed. Bowel sounds noted in all four quadrants, abdomen remains large, firm, round and distended. Diagnostics reviewed at bedside. Skin alterations noted. Pt repositioned for comfort and safety. Fall, Aspiration and Skin precautions observed. Pt remains resting in bed; Bed remains in the lowest position with the safety wheels engaged, call light within reach, side rails up x3 and bed alarm activated. Will continue plan of care. Will continue to monitor.
--- NOTE | 2019-08-24 19:15 | NUR ---
HAND-OFF: Report given to .TALIA DAVEY.
[2019-08-24 20:00] VITALS: BP 131/57
[2019-08-24] MEDS: Dyna-Hex 2% Top Sol 2oz TOPIC SCH (20:15)
[2019-08-24] MEDS: Atorvastatin 20mg tab GT SCH (20:15)
--- NOTE | 2019-08-24 22:00 | NUR ---
NURSE NOTES: Pt provided with a bed bath, oral care, linen change and wound care per orders. Suctioning performed for excess secretions. Trach site cleaned and dressing changed due to secretions. ROM exercises provided per patient tolerance; upper extremities still noted to be contracted. Pt tolerated care well. Bedside assessment performed, assessed pt for pain using FLACC scale with a score of 0 noted. Pt repositioned for comfort and safety. VS obtained and noted to be stable at this time. Fall, Aspiration and Skin precautions observed. Pt remains resting in bed; Bed remains in the lowest position with the safety wheels engaged, call light within reach, side rails up x3 and bed alarm activated. Will continue plan of care. Will continue to monitor.
[2019-08-25] VITALS: BP 133/59
--- NOTE | 2019-08-25 01:00 | NUR ---
NURSE NOTES: Pt provided with a partial bed bath and oral care. Suctioning performed for excess secretions. ROM exercises provided per patient tolerance; upper extremities still noted to be contracted. Pt tolerated care well. Bedside assessment performed, assessed pt for pain using FLACC scale with a score of 0 noted. Pt repositioned for comfort and safety. VS obtained and noted to be stable at this time. Temperature of 99.0F was noted at 00:00, excess blanket removed and temperature reassessed and now noted to be 98.9F Fall, Aspiration and Skin precautions observed. Pt remains resting in bed; Bed remains in the lowest position with the safety wheels engaged, call light within reach, side rails up x3 and bed alarm activated. Will continue plan of care. Will continue to monitor.
[2019-08-25 04:00] VITALS: BP 138/56
[2019-08-25] MEDS: NovoLOG Insulin Flexpen SUBQ SCH ×4 (05:01→23:08)
[2019-08-25 05:29] LABS: BASOPHILS % (AUTO) 0.6 % (0.0-2.0); EOSINOPHILS % (AUTO) 2.9 % (0.0-3.0); HEMATOCRIT 28.6 % (42.0-52.0); HEMOGLOBIN 8.9 G/DL (14.2-18.0); LYMPHOCYTES % (AUTO) 12.5 % (20.0-45.0); MEAN CORPUSCULAR VOLUME 87 FL (80-99); MONOCYTES % (AUTO) 8.9 % (1.0-10.0); NEUTROPHILS % (AUTO) 75.2 % (45.0-75.0); PLATELET COUNT 318 K/UL (150-450); RED BLOOD COUNT 3.29 M/UL (4.70-6.10); RED CELL DISTRIBUTION WIDTH 16.8 % (11.6-14.8); WHITE BLOOD COUNT 17.3 K/UL (4.8-10.8)
[2019-08-25 05:58] LABS: ALANINE AMINOTRANSFERASE 25 U/L (12-78); ALBUMIN 1.3 G/DL (3.4-5.0); ALBUMIN/GLOBULIN RATIO 0.2 (1.0-2.7); ALKALINE PHOSPHATASE 330 U/L (46-116); ANION GAP 6 mmol/L (5-15); ASPARTATE AMINO TRANSFERASE 35 U/L (15-37); BILIRUBIN,TOTAL 0.4 MG/DL (0.2-1.0); BLOOD UREA NITROGEN 44 mg/dL (7-18); CALCIUM 8.5 MG/DL (8.5-10.1); CARBON DIOXIDE 30 MMOL/L (21-32); CHLORIDE 105 MMOL/L (98-107); POTASSIUM 3.1 MMOL/L (3.5-5.1); SODIUM 141 MMOL/L (136-145)
--- NOTE | 2019-08-25 07:03 | NUR ---
HAND-OFF: Report given to TAMICA Arredondo. Endorsed plan of care.
--- NOTE | 2019-08-25 07:04 | NUR ---
NURSE NOTES: Received patient from Iraj DAVEY. Patient is obtunded, V. Paced on the heart monitor, HR 78. Receiving oxygen via Portex 8, vent settings: AC 15, TV 450, FiO2 24%, PEEP 5. G-tube is intact and receiving Nepro at 45cc/hr. Right Femoral Rancho cath is intact and patent, Left hand 22g is intact and asymptomatic. Rectal tube is intact and draining, Avalos catheter is intact and draining. Bed is locked, placed in lowest position, side rails up x3, bed alarm on, head of bed elevated. Will continue to monitor.
--- NOTE | 2019-08-25 07:48 | NUR ---
NURSE NOTES: Patient seen and assessed by Dr. Campos.
[2019-08-25 08:00] VITALS: BP 122/49
[2019-08-25] MEDS: Multivitamins W/Minerals 15 ML UDC GT SCH (08:08)
[2019-08-25] MEDS: Nephrovite tab (Rena-Vite) GT SCH (08:08)
[2019-08-25] MEDS: Ascorbic Acid 500mg tab GT SCH (08:09)
[2019-08-25] MEDS: Minoxidil 2.5mg tab GT SCH (08:09)
[2019-08-25] MEDS: Vitamin D 1000 IU Tab GT SCH (08:09)
[2019-08-25] MEDS: Metoprolol Tartrate 100mg tab GT SCH ×2 (08:09→20:51)
[2019-08-25] MEDS: Zinc Oxide Oint 2oz TOPIC SCH ×2 (08:10→18:19)
--- NOTE | 2019-08-25 08:55 | NUR ---
NURSE NOTES: Medications given as prescribed, no adverse reactions noted. Patient's axillary temperature read 99.9 degrees Fahrenheit, ice packs were placed on patient. Turned and repositioned patient. Oral care given, endotracheal suctioning done, thin clear secretions removed. Will continue to monitor.
--- NOTE | 2019-08-25 09:00 | Hematology/Onc Progress Note ---
Assessment/Plan Assessment/Plan Assessment/recs # Leukocytosis - with multiple infections, VRE UTI --> wbc trend 33-->28-->25->23->22->23->24->17.3-->17 --> on abx, linezolid and zosyn--> zosyn-->off --> + blood cultures with coag neg staph likely contaminated --> as per id recs --> has ordered a flow cytometry (with pathology) --> does show increased nK cell activity --> JOURDAN 2 and bcr-abl labs ordered (these are send outs) # Anemia due to chronic disease/kidney disease as well, gi bleed + occult + noted --> was on iron in the past, now on hold --> has been started on epogen --> as per renal care --> egd done and shows gastritis --> on ppi --> egd showed gastritis, colo recently done --> hgb 9-->8.7-->7.6-->9.2-->8.9 # Respiratory failure --> per pulm, s/p trach --> COVID 19 test negative x 2 # Dysphagia s/p gtube with nepro --> per gi # ESRD with r fem julito --> hd as per renal # Dvt ppx scds Appreciate consultation and dw Rn Subjective Constitutional: Denies: no symptoms, chills, fever, malaise, weakness, other HEENT: Denies: no symptoms, eye pain, blurred vision, tearing, double vision, ear pain, ear discharge, nose pain, nose congestion, throat pain, throat swelling, mouth pain, mouth swelling, other Cardiovascular: Denies: no symptoms, chest pain, edema, irregular heart rate, lightheadedness, palpitations, syncope, other Respiratory: Denies: no symptoms, cough, shortness of breath, SOB with excertion, SOB at rest, sputum, wheezing, other Genitourinary: Denies: no symptoms, burning, discharge, frequency, flank pain, hematuria, incontinence, pain, urgency, other Neurologic/Psychiatric: Denies: no symptoms, anxiety, depressed, emotional problems, headache, numbness, paresthesia, pre-existing deficit, seizure, tingling, tremors, weakness, other Endocrine: Denies: no symptoms, excessive sweating, flushing, intolerance to cold, intolerance to heat, increased hunger, increased thirst, increased urine, unexplained weight gain, unexplained weight loss, other Allergies: Coded Allergies: No Known Allergies (Unverified , 06/10/19) Subjective 08/15 meds noted, no bleeding, hgb 8.8, wbc 28, path flow pending 08/16 flow pending dw pathologist, results pending, wbc 25, hgb 9 08/17 labs reviewed, meds reviewed, meds noted, no night sweats 08/19 remains obtunded, on vent/trach, no bleeding wbc 21.7 08/20 labs have been reviewed, no bleeding, wbc still elev, path reviewed 08/21 labs are noted, no bleeding, on vent, wbc better 08/22 labs noted, no bleeding, meds reviewed, wbc 24 hgb 7.6 08/23 vent, off abx, c diff negative, h/h stable 08/24 labs reviewed, on abx, wbc 17, hgb 8.9, no hemolysis Objective Objective Current Medications Medications (Trade) Dose Ordered Sig/Leonel Route PRN Reason Start Time Stop Time Status Last Admin Dose Admin Acetaminophen (Tylenol) 650 mg Q4H PRN GT Mild Pain / fever 08/09/19 05:30 09/08/19 05:29 08/23/19 23:35 Al Hydroxide/Mg Hydroxide (Mylanta) 30 ml FOUR TIMES A DAY PRN GT constipation 08/09/19 06:00 09/08/19 05:29 Ascorbic Acid (Vitamin C) 500 mg DAILY GT 08/09/19 09:00 09/08/19 08:59 08/25/19 08:09 Atorvastatin Calcium (Lipitor) 40 mg BEDTIME GT 08/09/19 21:00 11/07/19 20:59 08/24/19 20:15 Chlorhexidine Gluconate (Felipa-Hex 2%) 1 applic DAILY@1999 TOPIC 08/15/19 20:00 11/13/19 19:59 08/24/19 20:15 Clonidine HCl (Catapres Tab) 0.1 mg Q4H PRN GT SBP>150 08/12/19 10:45 11/10/19 06:44 08/24/19 13:02 Dextrose (Dextrose 50%) 25 ml Q30M PRN IV Hypoglycemia 08/09/19 07:30 11/07/19 07:29 Dextrose (Dextrose 50%) 50 ml Q30M PRN IV Hypoglycemia 08/09/19 07:30 11/07/19 07:29 Epoetin Andreas (Epoetin Andreas(ESRD on dialysis)) 10,000 unit WED- SUBQ 08/18/19 21:00 11/16/19 20:59 08/23/19 20:15 Insulin Aspart (NovoLOG) Q6HR SUBQ 08/10/19 00:00 11/07/19 11:29 08/25/19 05:01 Lansoprazole (Prevacid) 30 mg DAILY GT 08/09/19 09:00 09/08/19 08:59 08/25/19 08:09 Loperamide HCl (Imodium) 2 mg Q4H PRN GT Diarrhea 08/09/19 08:00 09/08/19 07:59 08/22/19 17:53 Metoprolol Tartrate (Lopressor) 200 mg Q12HR GT 08/09/19 09:00 11/07/19 08:59 08/25/19 08:09 Minoxidil (Loniten) 5 mg DAILY GT 08/09/19 09:00 11/07/19 08:59 08/23/19 09:24 Multivitamins (Multivitamins W/ Minerals 15ml Liquid) 15 ml DAILY GT 08/09/19 09:00 09/08/19 08:59 08/25/19 08:08 Vitamin B Complex/ Vit C/Folic Acid (Nephrovite) 1 tab DAILY GT 08/09/19 09:00 09/08/19 08:59 08/25/19 08:08 Vitamin D (Vitamin D) 1,000 intlu DAILY GT 08/09/19 09:00 09/08/19 08:59 08/25/19 08:09 Zinc Oxide (Zinc Oxide) 1 applic BID TOPIC 08/10/19 18:00 11/08/19 17:59 08/25/19 08:10 Last 24 Hour Vital Signs Date Time Temp Pulse Resp B/P (MAP) Pulse Ox O2 Delivery O2 Flow Rate FiO2 08/25/19 08:09 78 122/49 08/25/19 08:00 99.9 78 20 122/49 (73) 100 08/25/19 08:00 Mechanical Ventilator 08/25/19 08:00 24 08/25/19 07:04 80 22 24 08/25/19 04:00 24 08/25/19 04:00 99.2 84 20 138/56 (83) 100 08/25/19 04:00 Mechanical Ventilator 08/25/19 03:35 77 08/25/19 02:48 76 23 24 08/25/19 00:00 99.0 77 21 133/59 (83) 100 08/25/19 00:00 24 08/25/19 00:00 Mechanical Ventilator 08/24/19 23:40 75 08/24/19 22:58 75 19 24 08/24/19 20:15 82 131/57 08/24/19 20:00 98.9 81 20 131/57 (81) 100 08/24/19 20:00 24 08/24/19 20:00 Mechanical Ventilator 08/24/19 19:33 78 08/24/19 18:51 78 17 24 08/24/19 16:00 24 08/24/19 16:00 76 08/24/19 16:00 Mechanical Ventilator 08/24/19 16:00 98.2 86 20 151/45 (80) 100 08/24/19 15:12 74 16 24 08/24/19 13:02 200/87 08/24/19 12:00 99.2 78 20 130/63 (85) 98 08/24/19 12:00 Mechanical Ventilator 08/24/19 12:00 24 08/24/19 12:00 78 08/24/19 10:43 75 18 24 08/24/19 09:00 75 139/74 08/24/19 09:00 139/74 08/24/19 08:00 75 08/24/19 08:00 97.0 74 18 139/74 (95) 99 08/24/19 08:00 Mechanical Ventilator 08/24/19 08:00 24 08/24/19 07:47 70 15 24 08/24/19 04:00 97.9 69 18 144/71 (95) 99 08/24/19 04:00 Mechanical Ventilator 08/24/19 04:00 24 08/24/19 04:00 68 08/24/19 03:19 69 17 24 08/24/19 00:00 71 7/16/20 00:00 24 08/24/19 00:00 Mechanical Ventilator 08/24/19 00:00 100.2 72 19 133/66 (88) 98 08/23/19 22:58 71 19 24 08/23/19 20:15 77 132/61 08/23/19 20:00 24 08/23/19 20:00 Mechanical Ventilator 08/23/19 20:00 75 08/23/19 20:00 98.2 77 16 132/61 (84) 100 08/23/19 18:48 75 22 24 08/23/19 16:00 70 08/23/19 16:00 98.2 69 16 99/52 (68) 100 08/23/19 16:00 Mechanical Ventilator 08/23/19 16:00 24 08/23/19 15:28 69 21 24 08/23/19 12:00 24 08/23/19 12:00 99.0 65 18 133/62 (85) 99 08/23/19 12:00 67 08/23/19 12:00 Mechanical Ventilator 08/23/19 10:57 65 17 24 08/23/19 09:25 74 175/75 08/23/19 09:24 175/75 Intake and Output 08/24/19 08/25/19 19:00 07:00 Intake Total 690 ml 740 ml Output Total 2050 ml 125 ml Balance -1360 ml 615 ml Free Water 150 ml 200 ml Tube Feeding 540 ml 540 ml Output Urine Total 100 ml Stool Total 50 ml 25 ml Hemodialysis UF 2000 ml Labs Test 08/22/19 12:41 08/22/19 16:58 08/23/19 00:38 08/23/19 04:56 POC Whole Blood Glucose 162 MG/DL (74-106) 153 MG/DL (74-106) 187 MG/DL (74-106) 149 MG/DL (74-106) Test 08/23/19 13:05 08/23/19 18:31 08/23/19 23:01 08/24/19 03:10 POC Whole Blood Glucose 179 MG/DL (74-106) 177 MG/DL (74-106) White Blood Count 17.3 K/UL (4.8-10.8) Red Blood Count 3.39 M/UL (4.70-6.10) Hemoglobin 9.2 G/DL (14.2-18.0) Hematocrit 29.2 % (42.0-52.0) Mean Corpuscular Volume 86 FL (80-99) Mean Corpuscular Hemoglobin 27.3 PG (27.0-31.0) Mean Corpuscular Hemoglobin Concent 31.7 G/DL (32.0-36.0) Red Cell Distribution Width 16.8 % (11.6-14.8) Platelet Count 278 K/UL (150-450) Mean Platelet Volume 7.0 FL (6.5-10.1) Neutrophils (%) (Auto) 70.4 % (45.0-75.0) Lymphocytes (%) (Auto) 12.0 % (20.0-45.0) Monocytes (%) (Auto) 10.3 % (1.0-10.0) Eosinophils (%) (Auto) 6.6 % (0.0-3.0) Basophils (%) (Auto) 0.7 % (0.0-2.0) Sodium Level 141 MMOL/L (136-145) Potassium Level 3.7 MMOL/L (3.5-5.1) Chloride Level 107 MMOL/L (98-107) Carbon Dioxide Level 27 MMOL/L (21-32) Anion Gap 7 mmol/L (5-15) Blood Urea Nitrogen 55 mg/dL (7-18) Creatinine 2.5 MG/DL (0.55-1.30) Estimat Glomerular Filtration Rate 25.1 mL/min (>60) Glucose Level 120 MG/DL (74-106) Calcium Level 8.8 MG/DL (8.5-10.1) Test 08/24/19 05:20 08/24/19 12:15 08/24/19 17:57 08/24/19 23:00 POC Whole Blood Glucose 151 MG/DL (74-106) 157 MG/DL (74-106) Test 08/25/19 03:30 08/25/19 04:55 White Blood Count 17.3 K/UL (4.8-10.8) Red Blood Count 3.29 M/UL (4.70-6.10) Hemoglobin 8.9 G/DL (14.2-18.0) Hematocrit 28.6 % (42.0-52.0) Mean Corpuscular Volume 87 FL (80-99) Mean Corpuscular Hemoglobin 27.0 PG (27.0-31.0) Mean Corpuscular Hemoglobin Concent 31.0 G/DL (32.0-36.0) Red Cell Distribution Width 16.8 % (11.6-14.8) Platelet Count 318 K/UL (150-450) Mean Platelet Volume 6.6 FL (6.5-10.1) Neutrophils (%) (Auto) 75.2 % (45.0-75.0) Lymphocytes (%) (Auto) 12.5 % (20.0-45.0) Monocytes (%) (Auto) 8.9 % (1.0-10.0) Eosinophils (%) (Auto) 2.9 % (0.0-3.0) Basophils (%) (Auto) 0.6 % (0.0-2.0) Sodium Level 141 MMOL/L (136-145) Potassium Level 3.1 MMOL/L (3.5-5.1) Chloride Level 105 MMOL/L (98-107) Carbon Dioxide Level 30 MMOL/L (21-32) Anion Gap 6 mmol/L (5-15) Blood Urea Nitrogen 44 mg/dL (7-18) Creatinine 2.0 MG/DL (0.55-1.30) Estimat Glomerular Filtration Rate 32.5 mL/min (>60) Glucose Level 186 MG/DL (74-106) Calcium Level 8.5 MG/DL (8.5-10.1) Total Bilirubin 0.4 MG/DL (0.2-1.0) Aspartate Amino Transf (AST/SGOT) 35 U/L (15-37) Alanine Aminotransferase (ALT/SGPT) 25 U/L (12-78) Alkaline Phosphatase 330 U/L (46-116) Total Protein 7.2 G/DL (6.4-8.2) Albumin 1.3 G/DL (3.4-5.0) Globulin 5.9 g/dL Albumin/Globulin Ratio 0.2 (1.0-2.7) POC Whole Blood Glucose 180 MG/DL (74-106) Height (Feet): 6 Height (Inches): 7 Weight (Pounds): 166 Objective Physical Exam General Appearance: nad, Chronically Ill Head: normocephalic Eyes: right eye PERRL - Will not open left eye ENT: moist mucus membranes Neck: other - submandibular mass R, fairly rigid with resistance to rotation to L, tracheotomy Respiratory: decreased breath sounds, crackles, other - pacemaker, vent+ Cardiovascular: regular rate, rhythm, edema - anasarca Gastrointestinal: non tender, distended, other - G tube Genitourinary: other Musculoskeletal: other - Contractures all extremities Neurologic: sensory intact, motor weakness, responsive Psychiatric: other Skin: Decubitus/Ulcer - Stage III right elbow, stage III left elbow, stage II sacrum, stage III scrotum, warm/dry Fitz Campos MD Aug 25, 2019 09:00
--- NOTE | 2019-08-25 10:01 | NUR ---
NURSE NOTES: Reassessed patient's temperature, axillary temperature read 99.3 degrees Fahrenheit. Ice packs remain on patient. Will continue to monitor.
--- NOTE | 2019-08-25 10:28 | NUR ---
DISCHARGE PLANNING: NOTE F/U CALL PLACED TO [facility] T: [phone] TO F/U ON REFERRAL TO [facility] STATED THAT SHE LEFT A VM FOR CATHRYN @ [facility] AND SHE AWAITING A CALL BACK. [facility] WILL BE ABLE TO PROVIDE IN HOUSE HD PATHOLOGY REPORTS WERE REQUESTED AND FAXED TO [facility] @ [phone] DORIS WILL CONTINUE TO F/U WBC .3 Addendum: 08/25/19 at 1351 by Jessy Gonzalez CM F/U CALL PLACED TO [facility] REGARDING PLACEMENT. [facility] STATED THAT PT IS BEING DENIED AT [facility] D/T HD CALL PLACED TO [facility] TO F/U ON POSSIBLE PLACEMENT. DES IS REVIEWING HER NOTES AND WILL CALL THIS CM BACK Addendum: 08/25/19 at 1513 by Jessy Gonzalez CM F/U CALL PLACED TO [facility]. SHE IS RESUBMITTING THE REFERRAL TO [facility] FOR REVIEW HD PACKET TO BE FAXED TO [facility] HEP PANEL REMAINS IN PENDING STATUS FROM 08/16 AWAITING CALL BACK FROM LAB MD CAMPBELL EDOUARD. TSPOT ORDERED AND REDRAW OF HEP PANEL
--- NOTE | 2019-08-25 10:34 | NUR ---
NURSE NOTES: Patient seen and assessed by Dr. Lyle.
--- NOTE | 2019-08-25 10:52 | Infectious Diseases Prog Note ---
Assessment/Plan Assessment/Plan antibiotics : none A 1. VRE UTI s/p rx 2. + blood cultures with coag neg staph likely contaminated 3. respiratory failure 4. leucocytosis improving 5. gram negative pneumonia COVID 19 test negative x 2 6. renal failure on HD P 1. start zosyn 2. will follow up cultures Subjective ROS Limited/Unobtainable: Yes Allergies: Coded Allergies: No Known Allergies (Unverified , 06/10/19) Objective Last 24 Hour Vital Signs Date Time Temp Pulse Resp B/P (MAP) Pulse Ox O2 Delivery O2 Flow Rate FiO2 08/25/19 08:09 78 122/49 08/25/19 08:05 78 08/25/19 08:00 99.9 78 20 122/49 (73) 100 08/25/19 08:00 Mechanical Ventilator 08/25/19 08:00 24 08/25/19 07:04 80 22 24 08/25/19 04:00 24 08/25/19 04:00 99.2 84 20 138/56 (83) 100 08/25/19 04:00 Mechanical Ventilator 08/25/19 03:35 77 08/25/19 02:48 76 23 24 08/25/19 00:00 99.0 77 21 133/59 (83) 100 08/25/19 00:00 24 08/25/19 00:00 Mechanical Ventilator 08/24/19 23:40 75 08/24/19 22:58 75 19 24 08/24/19 20:15 82 131/57 08/24/19 20:00 98.9 81 20 131/57 (81) 100 08/24/19 20:00 24 08/24/19 20:00 Mechanical Ventilator 08/24/19 19:33 78 08/24/19 18:51 78 17 24 08/24/19 16:00 24 08/24/19 16:00 76 08/24/19 16:00 Mechanical Ventilator 08/24/19 16:00 98.2 86 20 151/45 (80) 100 08/24/19 15:12 74 16 24 08/24/19 13:02 200/87 08/24/19 12:00 99.2 78 20 130/63 (85) 98 08/24/19 12:00 Mechanical Ventilator 08/24/19 12:00 24 7/16/20 12:00 78 Height (Feet): 6 Height (Inches): 7 Weight (Pounds): 166 HEENT: status post trach Respiratory/Chest: lungs clear Cardiovascular: normal rate, regular rhythm, no gallop/murmur Abdomen: soft, non tender, other - GT Extremities: no edema Microbiology Date/Time Source Procedure Growth Status 08/23/19 22:30 Sputum Gram Stain - Final Resulted 08/23/19 22:30 Sputum Culture - Preliminary Gram Negative Bacillus 1 Resulted Laboratory Tests Test 08/24/19 12:15 08/24/19 17:57 08/24/19 23:00 08/25/19 03:30 POC Whole Blood Glucose 151 MG/DL (74-106) H 157 MG/DL (74-106) H Pending White Blood Count 17.3 K/UL (4.8-10.8) H Red Blood Count 3.29 M/UL (4.70-6.10) L Hemoglobin 8.9 G/DL (14.2-18.0) L Hematocrit 28.6 % (42.0-52.0) L Mean Corpuscular Volume 87 FL (80-99) Mean Corpuscular Hemoglobin 27.0 PG (27.0-31.0) Mean Corpuscular Hemoglobin Concent 31.0 G/DL (32.0-36.0) L Red Cell Distribution Width 16.8 % (11.6-14.8) H Platelet Count 318 K/UL (150-450) Mean Platelet Volume 6.6 FL (6.5-10.1) Neutrophils (%) (Auto) 75.2 % (45.0-75.0) H Lymphocytes (%) (Auto) 12.5 % (20.0-45.0) L Monocytes (%) (Auto) 8.9 % (1.0-10.0) Eosinophils (%) (Auto) 2.9 % (0.0-3.0) Basophils (%) (Auto) 0.6 % (0.0-2.0) Sodium Level 141 MMOL/L (136-145) Potassium Level 3.1 MMOL/L (3.5-5.1) L Chloride Level 105 MMOL/L (98-107) Carbon Dioxide Level 30 MMOL/L (21-32) Anion Gap 6 mmol/L (5-15) Blood Urea Nitrogen 44 mg/dL (7-18) H Creatinine 2.0 MG/DL (0.55-1.30) H Estimat Glomerular Filtration Rate 32.5 mL/min (>60) Glucose Level 186 MG/DL (74-106) H Calcium Level 8.5 MG/DL (8.5-10.1) Total Bilirubin 0.4 MG/DL (0.2-1.0) Aspartate Amino Transf (AST/SGOT) 35 U/L (15-37) Alanine Aminotransferase (ALT/SGPT) 25 U/L (12-78) Alkaline Phosphatase 330 U/L (46-116) H Total Protein 7.2 G/DL (6.4-8.2) Albumin 1.3 G/DL (3.4-5.0) L Globulin 5.9 g/dL Albumin/Globulin Ratio 0.2 (1.0-2.7) L Test 08/25/19 04:55 POC Whole Blood Glucose 180 MG/DL (74-106) H Current Medications Medications (Trade) Dose Ordered Sig/Leonel Route PRN Reason Start Time Stop Time Status Last Admin Dose Admin Acetaminophen (Tylenol) 650 mg Q4H PRN GT Mild Pain / fever 08/09/19 05:30 09/08/19 05:29 08/23/19 23:35 Al Hydroxide/Mg Hydroxide (Mylanta) 30 ml FOUR TIMES A DAY PRN GT constipation 08/09/19 06:00 09/08/19 05:29 Ascorbic Acid (Vitamin C) 500 mg DAILY GT 08/09/19 09:00 09/08/19 08:59 08/25/19 08:09 Atorvastatin Calcium (Lipitor) 40 mg BEDTIME GT 08/09/19 21:00 11/07/19 20:59 08/24/19 20:15 Chlorhexidine Gluconate (Felipa-Hex 2%) 1 applic DAILY@1999 TOPIC 08/15/19 20:00 11/13/19 19:59 08/24/19 20:15 Clonidine HCl (Catapres Tab) 0.1 mg Q4H PRN GT SBP>150 08/12/19 10:45 11/10/19 06:44 08/24/19 13:02 Dextrose (Dextrose 50%) 25 ml Q30M PRN IV Hypoglycemia 08/09/19 07:30 11/07/19 07:29 Dextrose (Dextrose 50%) 50 ml Q30M PRN IV Hypoglycemia 08/09/19 07:30 11/07/19 07:29 Epoetin Andreas (Epoetin Andreas(ESRD on dialysis)) 10,000 unit SUBQ 08/18/19 21:00 11/16/19 20:59 08/23/19 20:15 Insulin Aspart (NovoLOG) Q6HR SUBQ 08/10/19 00:00 11/07/19 11:29 08/25/19 05:01 Lansoprazole (Prevacid) 30 mg DAILY GT 08/09/19 09:00 09/08/19 08:59 08/25/19 08:09 Loperamide HCl (Imodium) 2 mg Q4H PRN GT Diarrhea 08/09/19 08:00 09/08/19 07:59 08/22/19 17:53 Metoprolol Tartrate (Lopressor) 200 mg Q12HR GT 08/09/19 09:00 11/07/19 08:59 08/25/19 08:09 Minoxidil (Loniten) 5 mg DAILY GT 08/09/19 09:00 11/07/19 08:59 08/23/19 09:24 Multivitamins (Multivitamins W/ Minerals 15ml Liquid) 15 ml DAILY GT 08/09/19 09:00 09/08/19 08:59 08/25/19 08:08 Vitamin B Complex/ Vit C/Folic Acid (Nephrovite) 1 tab DAILY GT 08/09/19 09:00 09/08/19 08:59 08/25/19 08:08 Vitamin D (Vitamin D) 1,000 intlu DAILY GT 08/09/19 09:00 09/08/19 08:59 08/25/19 08:09 Zinc Oxide (Zinc Oxide) 1 applic BID TOPIC 08/10/19 18:00 11/08/19 17:59 08/25/19 08:10 Farnaz Lyle MD Aug 25, 2019 10:52
[2019-08-25 12:00] VITALS: BP 139/48
[2019-08-25] MEDS: Piperacillin/Tazobactam 2.25 GM in D5W 55 ML IVPB SCH ×2 (12:11→20:50)
--- NOTE | 2019-08-25 12:14 | Nephrology Progress Note ---
Assessment/Plan Plan Sepsis - IV Abx Skin wounds - wound care Pre ESRD - HD now TTS. Urine output is minimal!!! Patient will remain on HD. Needs PermaCath. Subjective Subjective Obtunded. Objective Objective Last 24 Hour Vital Signs Date Time Temp Pulse Resp B/P (MAP) Pulse Ox O2 Delivery O2 Flow Rate FiO2 08/25/19 11:00 73 24 24 08/25/19 08:09 78 122/49 08/25/19 08:05 78 08/25/19 08:00 99.9 78 20 122/49 (73) 100 08/25/19 08:00 Mechanical Ventilator 08/25/19 08:00 24 08/25/19 07:04 80 22 24 08/25/19 04:00 24 08/25/19 04:00 99.2 84 20 138/56 (83) 100 08/25/19 04:00 Mechanical Ventilator 08/25/19 03:35 77 08/25/19 02:48 76 23 24 08/25/19 00:00 99.0 77 21 133/59 (83) 100 08/25/19 00:00 24 08/25/19 00:00 Mechanical Ventilator 08/24/19 23:40 75 08/24/19 22:58 75 19 24 08/24/19 20:15 82 131/57 08/24/19 20:00 98.9 81 20 131/57 (81) 100 08/24/19 20:00 24 08/24/19 20:00 Mechanical Ventilator 08/24/19 19:33 78 08/24/19 18:51 78 17 24 08/24/19 16:00 24 08/24/19 16:00 76 08/24/19 16:00 Mechanical Ventilator 08/24/19 16:00 98.2 86 20 151/45 (80) 100 08/24/19 15:12 74 16 24 08/24/19 13:02 200/87 Intake and Output 08/24/19 08/25/19 19:00 07:00 Intake Total 690 ml 740 ml Output Total 2050 ml 125 ml Balance -1360 ml 615 ml Free Water 150 ml 200 ml Tube Feeding 540 ml 540 ml Output Urine Total 100 ml Stool Total 50 ml 25 ml Hemodialysis UF 2000 ml Laboratory Tests 08/24/19 12:15: POC Whole Blood Glucose 151H 08/24/19 17:57: POC Whole Blood Glucose 157H 08/24/19 23:00: POC Whole Blood Glucose [Pending] 08/25/19 03:30: White Blood Count 17.3H, Red Blood Count 3.29L, Hemoglobin 8.9L, Hematocrit 28.6L, Mean Corpuscular Volume 87, Mean Corpuscular Hemoglobin 27.0, Mean Corpuscular Hemoglobin Concent 31.0L, Red Cell Distribution Width 16.8H, Platelet Count 318, Mean Platelet Volume 6.6, Neutrophils (%) (Auto) 75.2H, Lymphocytes (%) (Auto) 12.5L, Monocytes (%) (Auto) 8.9, Eosinophils (%) (Auto) 2.9, Basophils (%) (Auto) 0.6, Sodium Level 141, Potassium Level 3.1L, Chloride Level 105, Carbon Dioxide Level 30, Anion Gap 6, Blood Urea Nitrogen 44H, Creatinine 2.0H, Estimat Glomerular Filtration Rate 32.5, Glucose Level 186H, Calcium Level 8.5, Total Bilirubin 0.4, Aspartate Amino Transf (AST/SGOT) 35, Alanine Aminotransferase (ALT/SGPT) 25, Alkaline Phosphatase 330H, Total Protein 7.2, Albumin 1.3L, Globulin 5.9, Albumin/Globulin Ratio 0.2L 08/25/19 04:55: POC Whole Blood Glucose 180H Height (Feet): 6 Height (Inches): 7 Weight (Pounds): 166 Objective CV RR Trach clean Lungs CTA Abd SNT. BS + E No CCE Erica Pichardo MD Aug 25, 2019 12:14
--- NOTE | 2019-08-25 12:36 | NUR ---
NURSE NOTES: Reported Potassium level to Dr. Pichardo. No new orders.
--- NOTE | 2019-08-25 13:51 | NUR ---
CASE MANAGEMENT: REVIEW 08/25/2019 SI:SEPSIS. RESP FAILURE VS: T 99.7 HR 72 RR 22 B/P 139/48 SATS 99% ON MECH VENT FIO2 24 LABS: WBC 17.3 K 3.1 BUN 44 CR 2 GLU 186 ALP 330 IS:LIPITOR GT QHS PREVACID GT QD LONITEN GT QD LOPRESSOR GT Q12H INSULIN ASPART SUBQ Q6H SDU PLAN OF CARE: PERMACATH PLACEMENT TODAY
--- NOTE | 2019-08-25 14:31 | Surgery Progress Note ---
Surgery Progress Note Subjective Procedure Performed Right femoral temporary hemodialysis catheter insertion Additional Comments no acute events comfortable stable no n/v/f/c Objective Last 24 Hour Vital Signs Date Time Temp Pulse Resp B/P (MAP) Pulse Ox O2 Delivery O2 Flow Rate FiO2 08/25/19 12:00 24 08/25/19 12:00 99.7 72 22 139/48 (78) 99 08/25/19 12:00 Mechanical Ventilator 08/25/19 11:28 72 08/25/19 11:00 73 24 24 08/25/19 08:09 78 122/49 08/25/19 08:05 78 08/25/19 08:00 99.9 78 20 122/49 (73) 100 08/25/19 08:00 Mechanical Ventilator 08/25/19 08:00 24 08/25/19 07:04 80 22 24 08/25/19 04:00 24 08/25/19 04:00 99.2 84 20 138/56 (83) 100 08/25/19 04:00 Mechanical Ventilator 08/25/19 03:35 77 08/25/19 02:48 76 23 24 08/25/19 00:00 99.0 77 21 133/59 (83) 100 08/25/19 00:00 24 08/25/19 00:00 Mechanical Ventilator 08/24/19 23:40 75 08/24/19 22:58 75 19 24 08/24/19 20:15 82 131/57 08/24/19 20:00 98.9 81 20 131/57 (81) 100 08/24/19 20:00 24 08/24/19 20:00 Mechanical Ventilator 08/24/19 19:33 78 08/24/19 18:51 78 17 24 08/24/19 16:00 24 08/24/19 16:00 76 08/24/19 16:00 Mechanical Ventilator 08/24/19 16:00 98.2 86 20 151/45 (80) 100 08/24/19 15:12 74 16 24 I&O Intake and Output 08/24/19 08/25/19 19:00 07:00 Intake Total 690 ml 740 ml Output Total 2050 ml 125 ml Balance -1360 ml 615 ml Free Water 150 ml 200 ml Tube Feeding 540 ml 540 ml Output Urine Total 100 ml Stool Total 50 ml 25 ml Hemodialysis UF 2000 ml Dressing: other Wound: other Drains: other Cardiovascular: RSR Respiratory: decreased breath sounds Abdomen: soft, non-tender, present bowel sounds Extremities: no cyanosis Laboratory Tests Test 08/24/19 17:57 08/24/19 23:00 08/25/19 03:30 08/25/19 04:55 POC Whole Blood Glucose 157 MG/DL (74-106) H Pending 180 MG/DL (74-106) H White Blood Count 17.3 K/UL (4.8-10.8) H Red Blood Count 3.29 M/UL (4.70-6.10) L Hemoglobin 8.9 G/DL (14.2-18.0) L Hematocrit 28.6 % (42.0-52.0) L Mean Corpuscular Volume 87 FL (80-99) Mean Corpuscular Hemoglobin 27.0 PG (27.0-31.0) Mean Corpuscular Hemoglobin Concent 31.0 G/DL (32.0-36.0) L Red Cell Distribution Width 16.8 % (11.6-14.8) H Platelet Count 318 K/UL (150-450) Mean Platelet Volume 6.6 FL (6.5-10.1) Neutrophils (%) (Auto) 75.2 % (45.0-75.0) H Lymphocytes (%) (Auto) 12.5 % (20.0-45.0) L Monocytes (%) (Auto) 8.9 % (1.0-10.0) Eosinophils (%) (Auto) 2.9 % (0.0-3.0) Basophils (%) (Auto) 0.6 % (0.0-2.0) Sodium Level 141 MMOL/L (136-145) Potassium Level 3.1 MMOL/L (3.5-5.1) L Chloride Level 105 MMOL/L (98-107) Carbon Dioxide Level 30 MMOL/L (21-32) Anion Gap 6 mmol/L (5-15) Blood Urea Nitrogen 44 mg/dL (7-18) H Creatinine 2.0 MG/DL (0.55-1.30) H Estimat Glomerular Filtration Rate 32.5 mL/min (>60) Glucose Level 186 MG/DL (74-106) H Calcium Level 8.5 MG/DL (8.5-10.1) Total Bilirubin 0.4 MG/DL (0.2-1.0) Aspartate Amino Transf (AST/SGOT) 35 U/L (15-37) Alanine Aminotransferase (ALT/SGPT) 25 U/L (12-78) Alkaline Phosphatase 330 U/L (46-116) H Total Protein 7.2 G/DL (6.4-8.2) Albumin 1.3 G/DL (3.4-5.0) L Globulin 5.9 g/dL Albumin/Globulin Ratio 0.2 (1.0-2.7) L Plan Problems: (1) Anemia (2) Hyponatremia (3) Leukocytosis Assessment & Plan: Tracheostomy, left chest pacemaker are again demonstrated. There is bilateral interstitial and airspace disease and bilateral pleural fluid again demonstrated. This appears more severe than on the prior study. Bilateral interstitial and airspace infiltrates versus edema. Bilateral pleural effusions Leukocytosis, anemia, tachycardia, abnormal labs. Wound evaluated and likely etiology of patient's sepsis. Leukocytosis etiology work-up antibiotics per infectious disease Appreciate nephrology input transfuse with dialysis We will follow with recommendations thank you allowing participation's care plan HD access temp HD discussed with medical teams line okay HD as per renal persistent leukocytosis flow cyto noted (4) Ventilator dependent (5) Right lower lobe pneumonia (6) Hypokalemia (7) Hyperkalemia (8) Anasarca (9) Decubitus skin ulcer Assessment & Plan: pt presented on admission with generalized edemae.Skin assessed under tracheostomy and no areas of concerns noted. GT Insertion is marginally erythematous with small amt slough at stoma. Unstageable Pressure Injury R elbow. Base of wound is 100% yellow slough, Borders are erythematous. Wound oozing small amt haemopurulent exudate.Darker skin tone without elevation in skin temp or erythema periwound. Pt's penis and scrotum are grossly edematous and enlarged and weeping serous exudate from numerous sites both from penis and scrotum. Two small open wounds noted at base of at base of shaft of penis ,and contreras aspect of scrotum. Both wounds oozing large amt sanguineous and serosanguineous exudate. Multiple open wounds with Biofilm at base of each wounds noted to contreras/lateral,inferior and posterior aspects of scrotum. These wounds noted to be oozing moderate amts of serosanguineous exudate. Hypertrophic scar with scattered areas of hyperpigmentation noted to Sacrum. DTPI noted to L Buttocks (L)7cm x (W)9cm. Base of wound is purple and indurated.Darker skin tone without erythema, induration or fluctuance R and L ischial tuberosities. Both heels are boggy with non-blanchable erythema. Tx.Plan: Cleanse wound R elbow with Saline. Apply TheraHoney, Apply Moisture Barrier Paste periwound. Cover with Optifoam drsg.Change Daily and prn. Wash GT site with soap and water.Pat dry. Apply Zinc Oxide Paste to GT site Daily. Leave Open to Air. Apply Zinc Oxide Paste to entire Scrotum, Place ABD pads to R and L lateral, and posterior aspects of scrotum TWICE daily. Apply Cavilon Skin Barrier to malleoli and both Heels. Cover each site with Optifoam drsgs. Change every 7 days and prn. Reposition at least every 2hours or as tolerated. Off-load heels with Pillows. APM/BECCA Mattress overlay. (10) Malnutrition Assessment & Plan: DAILY ESTIMATED NEEDS: Needs based on Renal, critical care, wound/ 61kg 22-28 kcals/kg 5646-2798 total kcals 1-1.25 (increase w/ renal improvement) g protein/kg 61-76 g total protein 20-25 mL/kg 2400-8386 total fluid mLs NUTRITION DIAGNOSIS: * Swallowing difficulty R/T respiratory failure, dysphagia as evidenced by trach/vent dep, PEG dep * Increased kcal/prot needs R/T wound healing as evidenced by admitted w/ multiple pressure injuries per photos, pending eval. CURRENT TF:Nepro @ 45ml/hr x 24 hrs ENTERAL NUTRITION RECOMMENDATIONS: NEPRO to 45ml/hr x 20 hrs to provide 900ml, 1620kcal, 73g prot, 654ml free water * Maintain current TF * HOB over 30 degrees/ water flush per MD ADDITIONAL RECOMMENDATIONS: * Per SNF: HT=63" JK=266 lbs (Vs EMR wt of 165lbs) -> obtain re-calibrated bedscale wt * Wound healing: add Nephrovite x 1 + Vit C 250mg QD add Garo 1pkt BID via GT * Monitor renal fxn and lytes, check phos level (11) Uremia (12) CKD (chronic kidney disease) stage 5, GFR less than 15 ml/min (13) Colon distention Assessment & Plan: discussed with GI likely functional as having lots of loose bm rectal tube kub f/u Marked distention of the sigmoid colon. 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 No evidence of bowel wall thickening or pneumatosis 12 mm focus of contrast enhancement in the right pectineus muscle. While nonspecific in appearance, appearance raises concern for a possible pseudoaneurysm. Ill- defined thickening of the pectus medius muscle could indicate some intramuscular hemorrhage. The above findings were phoned to Dr. Urias at the time of interpretation Large bilateral pleural effusions Hazy pulmonary parenchymal opacities as well as dense consolidative opacities most likely represent pulmonary edema, but could represent pneumonia Evidence of anasarca elsewhere, with generalized edema of the subcutaneous fat Bladder wall thickening, raises concern for cystitis. Avalos catheter in place Colonic diverticulosis. No evidence of diverticulitis. Tracheostomy Pacemaker Gastrostomy Jonathan Urias Aug 25, 2019 14:31
--- NOTE | 2019-08-25 15:09 | General Progress Note ---
Assessment/Plan Assessment/Plan: IMPRESSION: 1. anemia. 2. GI bleed. 3. Leukocytosis. 4. Probable sepsis. + BCX 5. Acute on chronic renal failure. 6. Hyponatremia. 7. Severe protein-calorie malnutrition. 8. Significantly elevated C-reactive protein concerning for infectious etiology. 9. Tracheostomy, G-tube. 10. Ventilator dependence. 11. anasarca with bilateral pleural effusion 12. Hematuria PLAN consideer LTAC care noted on vent surgical follow up monitor labs rate control monitor renal function: HD iv antibiotics care noted and reviewed remains ill difficult to place with need for HD and vent unstable impression, plan, and exam edited and reviewed in detail care discussed with RN Subjective Allergies: Coded Allergies: No Known Allergies (Unverified , 06/10/19) Subjective remains ill on vent on HD + hematuria and some rectal bleeding Objective Last 24 Hour Vital Signs Date Time Temp Pulse Resp B/P (MAP) Pulse Ox O2 Delivery O2 Flow Rate FiO2 08/25/19 12:00 24 08/25/19 12:00 99.7 72 22 139/48 (78) 99 08/25/19 12:00 Mechanical Ventilator 08/25/19 11:28 72 08/25/19 11:00 73 24 24 08/25/19 08:09 78 122/49 08/25/19 08:05 78 08/25/19 08:00 99.9 78 20 122/49 (73) 100 08/25/19 08:00 Mechanical Ventilator 08/25/19 08:00 24 08/25/19 07:04 80 22 24 08/25/19 04:00 24 08/25/19 04:00 99.2 84 20 138/56 (83) 100 08/25/19 04:00 Mechanical Ventilator 08/25/19 03:35 77 08/25/19 02:48 76 23 24 08/25/19 00:00 99.0 77 21 133/59 (83) 100 08/25/19 00:00 24 08/25/19 00:00 Mechanical Ventilator 08/24/19 23:40 75 08/24/19 22:58 75 19 24 08/24/19 20:15 82 131/57 08/24/19 20:00 98.9 81 20 131/57 (81) 100 08/24/19 20:00 24 7/16/20 20:00 Mechanical Ventilator 08/24/19 19:33 78 08/24/19 18:51 78 17 24 08/24/19 16:00 24 08/24/19 16:00 76 08/24/19 16:00 Mechanical Ventilator 08/24/19 16:00 98.2 86 20 151/45 (80) 100 08/24/19 15:12 74 16 24 Intake and Output 08/24/19 08/25/19 19:00 07:00 Intake Total 690 ml 740 ml Output Total 2050 ml 125 ml Balance -1360 ml 615 ml Free Water 150 ml 200 ml Tube Feeding 540 ml 540 ml Output Urine Total 100 ml Stool Total 50 ml 25 ml Hemodialysis UF 2000 ml Laboratory Tests 08/24/19 17:57: POC Whole Blood Glucose 157H 08/24/19 23:00: POC Whole Blood Glucose [Pending] 08/25/19 03:30: White Blood Count 17.3H, Red Blood Count 3.29L, Hemoglobin 8.9L, Hematocrit 28.6L, Mean Corpuscular Volume 87, Mean Corpuscular Hemoglobin 27.0, Mean Corpuscular Hemoglobin Concent 31.0L, Red Cell Distribution Width 16.8H, Platelet Count 318, Mean Platelet Volume 6.6, Neutrophils (%) (Auto) 75.2H, Lymphocytes (%) (Auto) 12.5L, Monocytes (%) (Auto) 8.9, Eosinophils (%) (Auto) 2.9, Basophils (%) (Auto) 0.6, Sodium Level 141, Potassium Level 3.1L, Chloride Level 105, Carbon Dioxide Level 30, Anion Gap 6, Blood Urea Nitrogen 44H, Creatinine 2.0H, Estimat Glomerular Filtration Rate 32.5, Glucose Level 186H, Calcium Level 8.5, Total Bilirubin 0.4, Aspartate Amino Transf (AST/SGOT) 35, Alanine Aminotransferase (ALT/SGPT) 25, Alkaline Phosphatase 330H, Total Protein 7.2, Albumin 1.3L, Globulin 5.9, Albumin/Globulin Ratio 0.2L 08/25/19 04:55: POC Whole Blood Glucose 180H Height (Feet): 6 Height (Inches): 7 Weight (Pounds): 166 Objective GENERAL: Ill-appearing male, chronically debilitated. HEENT: Tracheostomy in midline. Questionable fullness in the submandibular region. LUNGS: Coarse breath sounds. reduced breath sounds CARDIAC: S1, S2. Regular rate and rhythm. ABDOMEN: Soft. G-tube. EXTREMITIES: With noted edema. NEUROLOGICAL: Poorly responsive, weak diffusely. Kain Ramirez MD Aug 25, 2019 15:09
[2019-08-25 16:00] VITALS: BP 148/61
--- NOTE | 2019-08-25 17:03 | NUR ---
DISCHARGE PLANNING: NOTE ADDITIONAL CLINICALS FAXED TO [facility] FOR HD ARRANGEMENTS COMPLETE HEP PANEL AND TSPOT PENDING FLOWSHEETS, CXR, HEP A, EKG, INSERTION REPORT, HD ORDER, AND COVID RESULTS FAXED TO [facility]. QUANG CONFIRMED THAT SHE RECEIVED CLINICALS AND WILL WAIT FOR THE PENDING LABS TO BE FAXED
--- NOTE | 2019-08-25 17:38 | NUR ---
NURSE NOTES: Bed bath given to patient, turned and repositioned. Patient showing no signs of acute distress and is afebrile. Will continue to monitor.
--- NOTE | 2019-08-25 19:03 | NUR ---
HAND-OFF: Report given to Agustina DAVEY.
--- NOTE | 2019-08-25 19:04 | NUR ---
NURSE NOTES: Received patient from TAMICA Arredondo. Will continue plan of care.
[2019-08-25 20:00] VITALS: BP 136/51
--- NOTE | 2019-08-25 20:00 | NUR ---
NURSE NOTES: Patient is obtunded. Trach'd Portex 8 to vent with settings of AC:15, TV:450, FiO2:24%, O2sat:98%. Vital signs stable, patient is afebrile. Avalos and rectal tube in place and draining. Left hand 22g TKO, Right femoral Rancho cath for HD scheduled for 08/25, appointment already made by AM RN. GT patent and flushed running Nepro @ 45ml/hr. Safety measures in place; bed low, locked and alarm is on.
--- NOTE | 2019-08-25 20:16 | General Progress Note ---
Assessment/Plan Assessment/Plan: Assessment - sigmoid distention on CT - suspect functional - Anemia - leukocytosis - stool OB (+) - EGD --> gastritis, Colonoscopy --> not planned since done recently - Renal failure - Sepsis / leukocytosis - Anasarca - resp failure, trach - dysphagia, GT - encephalopathy, contracted - Diarrhea, C Diff (-) x 2 - poor px Recommendations - continue TF - Iron panel noted - PPI - abx - supportive care Subjective Allergies: Coded Allergies: No Known Allergies (Unverified , 06/10/19) Subjective Above noted no events overnight NAD tolerating feeds Objective Last 24 Hour Vital Signs Date Time Temp Pulse Resp B/P (MAP) Pulse Ox O2 Delivery O2 Flow Rate FiO2 08/25/19 18:55 71 19 24 08/25/19 16:00 99.5 73 20 148/61 (90) 99 08/25/19 16:00 Mechanical Ventilator 08/25/19 16:00 24 08/25/19 15:33 70 08/25/19 15:30 70 23 24 08/25/19 12:00 24 08/25/19 12:00 99.7 72 22 139/48 (78) 99 08/25/19 12:00 Mechanical Ventilator 08/25/19 11:28 72 08/25/19 11:00 73 24 24 08/25/19 08:09 78 122/49 08/25/19 08:05 78 08/25/19 08:00 99.9 78 20 122/49 (73) 100 08/25/19 08:00 Mechanical Ventilator 08/25/19 08:00 24 08/25/19 07:04 80 22 24 08/25/19 04:00 24 08/25/19 04:00 99.2 84 20 138/56 (83) 100 08/25/19 04:00 Mechanical Ventilator 08/25/19 03:35 77 08/25/19 02:48 76 23 24 08/25/19 00:00 99.0 77 21 133/59 (83) 100 08/25/19 00:00 24 08/25/19 00:00 Mechanical Ventilator 08/24/19 23:40 75 08/24/19 22:58 75 19 24 Intake and Output 08/24/19 08/25/19 19:00 07:00 Intake Total 690 ml 740 ml Output Total 2050 ml 125 ml Balance -1360 ml 615 ml Free Water 150 ml 200 ml Tube Feeding 540 ml 540 ml Output Urine Total 100 ml Stool Total 50 ml 25 ml Hemodialysis UF 2000 ml Laboratory Tests 08/24/19 23:00: POC Whole Blood Glucose [Pending] 08/25/19 03:30: White Blood Count 17.3H, Red Blood Count 3.29L, Hemoglobin 8.9L, Hematocrit 28.6L, Mean Corpuscular Volume 87, Mean Corpuscular Hemoglobin 27.0, Mean Corpuscular Hemoglobin Concent 31.0L, Red Cell Distribution Width 16.8H, Platelet Count 318, Mean Platelet Volume 6.6, Neutrophils (%) (Auto) 75.2H, Lymphocytes (%) (Auto) 12.5L, Monocytes (%) (Auto) 8.9, Eosinophils (%) (Auto) 2.9, Basophils (%) (Auto) 0.6, Sodium Level 141, Potassium Level 3.1L, Chloride Level 105, Carbon Dioxide Level 30, Anion Gap 6, Blood Urea Nitrogen 44H, Creatinine 2.0H, Estimat Glomerular Filtration Rate 32.5, Glucose Level 186H, Calcium Level 8.5, Total Bilirubin 0.4, Aspartate Amino Transf (AST/SGOT) 35, Alanine Aminotransferase (ALT/SGPT) 25, Alkaline Phosphatase 330H, Total Protein 7.2, Albumin 1.3L, Globulin 5.9, Albumin/Globulin Ratio 0.2L, Hepatitis A IgM Antibody [Pending], Hepatitis B Surface Antigen [Pending], Hepatitis B Core IgM Antibody [Pending], Hepatitis C Antibody [Pending] 08/25/19 04:55: POC Whole Blood Glucose 180H Height (Feet): 6 Height (Inches): 7 Weight (Pounds): 166 Objective Debilitated AA man NCAT (+) trach coarse BS RR abd distended, anasarca, (+) GT ext (+) edema contracted Ronny Mustafa MD Aug 25, 2019 20:16
[2019-08-25] MEDS: Dyna-Hex 2% Top Sol 2oz TOPIC SCH (20:50)
[2019-08-25] MEDS: Atorvastatin 20mg tab GT SCH (20:50)
[2019-08-25] MEDS: Epoetin Alfa-EPBX(ESRD on dialysis)10,000 unit/ml vial SUBQ SCH (20:51)
[2019-08-26] VITALS: BP 136/55
[2019-08-26 04:00] VITALS: BP 140/55
[2019-08-26] MEDS: Piperacillin/Tazobactam 2.25 GM in D5W 55 ML IVPB SCH ×3 (04:26→20:58)
[2019-08-26] MEDS: NovoLOG Insulin Flexpen SUBQ SCH ×3 (05:08→18:02)
--- NOTE | 2019-08-26 06:30 | Pulmonology Progress Note ---
Subjective ROS Limited/Unobtainable: Yes Constitutional: Reports: no symptoms, fever, other - Bl=601.2 Gastrointestinal/Abdominal: Reports: no symptoms, diarrhea Allergies: Coded Allergies: No Known Allergies (Unverified , 06/10/19) Objective Last 24 Hour Vital Signs Date Time Temp Pulse Resp B/P (MAP) Pulse Ox O2 Delivery O2 Flow Rate FiO2 08/26/19 04:00 Mechanical Ventilator 08/26/19 04:00 99.2 73 21 140/55 (83) 98 08/26/19 04:00 24 08/26/19 03:45 72 08/26/19 03:12 73 21 24 08/26/19 00:00 99.1 70 19 136/55 (82) 98 08/26/19 00:00 Mechanical Ventilator 08/25/19 23:50 75 08/25/19 22:45 67 15 24 08/25/19 20:51 72 147/50 08/25/19 20:00 98.9 71 16 136/51 (79) 96 08/25/19 20:00 24 08/25/19 20:00 Mechanical Ventilator 08/25/19 20:00 73 08/25/19 18:55 71 19 24 08/25/19 16:00 99.5 73 20 148/61 (90) 99 08/25/19 16:00 Mechanical Ventilator 08/25/19 16:00 24 08/25/19 15:33 70 08/25/19 15:30 70 23 24 08/25/19 12:00 24 08/25/19 12:00 99.7 72 22 139/48 (78) 99 08/25/19 12:00 Mechanical Ventilator 08/25/19 11:28 72 08/25/19 11:00 73 24 24 08/25/19 08:09 78 122/49 08/25/19 08:05 78 08/25/19 08:00 99.9 78 20 122/49 (73) 100 08/25/19 08:00 Mechanical Ventilator 08/25/19 08:00 24 08/25/19 07:04 80 22 24 Intake and Output 08/25/19 08/26/19 19:00 07:00 Intake Total 695 ml 700 ml Output Total 150 ml Balance 695 ml 550 ml Free Water 100 ml IV Total 55 ml 220 ml Tube Feeding 540 ml 360 ml Other 120 ml Output Urine Total 150 ml Microbiology Date/Time Source Procedure Growth Status 08/23/19 22:30 Sputum Gram Stain - Final Resulted 08/23/19 22:30 Sputum Culture - Preliminary Gram Negative Bacillus 1 Resulted Laboratory Tests 08/25/19 23:06: POC Whole Blood Glucose 173H 08/26/19 05:06: POC Whole Blood Glucose [Pending] Current Medications Medications (Trade) Dose Ordered Sig/Leonel Route PRN Reason Start Time Stop Time Status Last Admin Dose Admin Acetaminophen (Tylenol) 650 mg Q4H PRN GT Mild Pain / fever 08/09/19 05:30 09/08/19 05:29 08/23/19 23:35 Al Hydroxide/Mg Hydroxide (Mylanta) 30 ml FOUR TIMES A DAY PRN GT constipation 08/09/19 06:00 09/08/19 05:29 Ascorbic Acid (Vitamin C) 500 mg DAILY GT 08/09/19 09:00 09/08/19 08:59 08/25/19 08:09 Atorvastatin Calcium (Lipitor) 40 mg BEDTIME GT 08/09/19 21:00 11/07/19 20:59 08/25/19 20:50 Chlorhexidine Gluconate (Felipa-Hex 2%) 1 applic DAILY@1999 TOPIC 08/15/19 20:00 11/13/19 19:59 08/25/19 20:50 Clonidine HCl (Catapres Tab) 0.1 mg Q4H PRN GT SBP>150 08/12/19 10:45 11/10/19 06:44 08/24/19 13:02 Dextrose (Dextrose 50%) 25 ml Q30M PRN IV Hypoglycemia 08/09/19 07:30 11/07/19 07:29 Dextrose (Dextrose 50%) 50 ml Q30M PRN IV Hypoglycemia 08/09/19 07:30 11/07/19 07:29 Epoetin Andreas (Epoetin Andreas(ESRD on dialysis)) 10,000 unit WED-WED-WED SUBQ 08/18/19 21:00 11/16/19 20:59 08/25/19 20:51 Heparin Sodium (Porcine) (Heparin Sod 1000 units/ml 10ml) 2,000 unit ONCE PRN IV dialysis 08/26/19 09:00 08/26/19 23:59 Heparin Sodium (Porcine) (Heparin) 1,000 unit POSTHD INJ 08/26/19 09:00 08/26/19 23:59 Insulin Aspart (NovoLOG) Q6HR SUBQ 08/10/19 00:00 11/07/19 11:29 08/26/19 05:08 Lansoprazole (Prevacid) 30 mg DAILY GT 08/09/19 09:00 09/08/19 08:59 08/25/19 08:09 Loperamide HCl (Imodium) 2 mg Q4H PRN GT Diarrhea 08/09/19 08:00 09/08/19 07:59 08/22/19 17:53 Metoprolol Tartrate (Lopressor) 200 mg Q12HR GT 08/09/19 09:00 11/07/19 08:59 08/25/19 20:51 Minoxidil (Loniten) 5 mg DAILY GT 08/09/19 09:00 11/07/19 08:59 08/23/19 09:24 Multivitamins (Multivitamins W/ Minerals 15ml Liquid) 15 ml DAILY GT 08/09/19 09:00 09/08/19 08:59 08/25/19 08:08 Piperacillin Sod/ Tazobactam Sod 2.25 gm/Dextrose 55 ml @ 110 mls/hr Q8H IVPB 08/25/19 12:00 09/01/19 11:59 08/26/19 04:26 Sodium Chloride 1,000 ml @ 500 mls/hr Q2H PRN IVLG sbp<90 during hd 08/26/19 09:00 08/26/19 23:59 Vitamin B Complex/ Vit C/Folic Acid (Nephrovite) 1 tab DAILY GT 08/09/19 09:00 09/08/19 08:59 08/25/19 08:08 Vitamin D (Vitamin D) 1,000 intlu DAILY GT 08/09/19 09:00 09/08/19 08:59 08/25/19 08:09 Zinc Oxide (Zinc Oxide) 1 applic BID TOPIC 08/10/19 18:00 11/08/19 17:59 08/25/19 18:19 Assessment/Plan Assessment/Plan Pulmonary Progress Note Assessment/Plan: IMPRESSION: 1. anemia. 2. GI bleed. 3. Leukocytosis. 4. Probable sepsis. + BCX 5. Acute on chronic renal failure. 6. Hyponatremia. 7. Severe protein-calorie malnutrition. 8. Significantly elevated C-reactive protein concerning for infectious etiology. 9. Tracheostomy, G-tube. 10. Ventilator dependence. 11. anasarca with bilateral pleural effusion 12. Hematuria PLAN consider LTAC care noted on vent surgical follow up monitor labs rate control monitor renal function: HD iv antibiotics care noted and reviewed remains ill difficult to place with need for HD and vent unstable impression, plan, and exam edited and reviewed in detail care discussed with RN Subjective Allergies: Coded Allergies: No Known Allergies (Unverified , 06/10/19) Subjective remains ill on vent on HD + hematuria and some rectal bleeding Height (Feet): 6 Height (Inches): 7 Weight (Pounds): 166 Objective Vital Signs Noted GENERAL: Ill-appearing male, chronically debilitated. HEENT: Tracheostomy in midline. Questionable fullness in the submandibular region. LUNGS: Coarse breath sounds. reduced breath sounds CARDIAC: S1, S2. Regular rate and rhythm. ABDOMEN: Soft. G-tube. EXTREMITIES: With noted edema. NEUROLOGICAL: Poorly responsive, weak diffusely. Laboratory Tests Noted Kenny Mccurdy MD Aug 26, 2019 06:30
--- NOTE | 2019-08-26 07:16 | NUR ---
HAND-OFF: Report given to Willi Espino RN.
--- NOTE | 2019-08-26 07:30 | NUR ---
NURSE NOTES: Received report from TAMICA Berrios. Patient is resting in bed, in stable condition. No s/sx of SOB, breathing is even and unlabored, patient is on vent with vent settings as ordered. Patient is nonverbal, observed no presence of pain or discomfort at this time. Bed is in lowest position, brakes engaged. Call light is kept within easy reach. Will continue to monitor patient.
--- NOTE | 2019-08-26 07:36 | NUR ---
RD ASSESSMENT & RECOMMENDATIONS SEE CARE ACTIVITY FOR COMPLETE ASSESSMENT DAILY ESTIMATED NEEDS: Needs based on Renal, critical care, wound/ 61kg 22-30 kcals/kg 4816-8968 total kcals 1.25-2 g protein/kg 76-122 g total protein Fluid per MD, now on HD NUTRITION DIAGNOSIS: * Swallowing difficulty R/T respiratory failure, dysphagia as evidenced by trach/vent dep, PEG dep * Increased kcal/prot needs R/T wound healing as evidenced by admitted w/ multiple pressure injuries including full thickness wounds at junction of Shaft of penis, dorsal scrotum, R elbow, and DTPI @ L buttocks. CURRENT TF:Nepro @ 45ml/hr x 24 hrs ENTERAL NUTRITION RECOMMENDATIONS: NEPRO @ 40ml/hr x 24 hrs to provide 960ml, 1728kcal , 78g prot, 697ml free water * Decrease goal rate to 40ml/hr x 24hrs -> meets 100% est kcal/prot needs * HOB over 30 degrees/ water flush per MD WITH CONTINUED DIARRHEA AND CONSISTENTLY LOW LYTES, consider TF change to carb controlled, elemental TF Vital AF 1.2-> rec goal rate of 55ml/hr x 24 hrs to provide 1320ml, 1584kcal, 99g prot, 1070ml free water, 2228mg K and 1114mg phos ADDITIONAL RECOMMENDATIONS: * Per SNF: HT=63" NS=025 lbs (Vs EMR wt of 166lbs) -> obtain re-calibrated bedscale wt, rec daily wt monitoring * Wound healing: continue Nephrovite x 1 and Garo BID Vit C dosing per Nephro * Monitor renal fxn and lytes-> pt now on HD rec checking f/up phos (0.9* on 08/21) * Add probiotics to help alleviate diarrhea
[2019-08-26 08:00] VITALS: BP 134/60
[2019-08-26] MEDS: Metoprolol Tartrate 100mg tab GT SCH ×2 (08:02→20:58)
[2019-08-26] MEDS: Nephrovite tab (Rena-Vite) GT SCH (08:33)
[2019-08-26] MEDS: Minoxidil 2.5mg tab GT SCH (08:33)
[2019-08-26] MEDS: Zinc Oxide Oint 2oz TOPIC SCH ×2 (08:34→18:01)
[2019-08-26] MEDS: Multivitamins W/Minerals 15 ML UDC GT SCH (08:34)
[2019-08-26] MEDS: Ascorbic Acid 500mg tab GT SCH (08:34)
[2019-08-26] MEDS: Vitamin D 1000 IU Tab GT SCH (08:34)
[2019-08-26] MEDS ORDERED: Heparin Sod 1000 units/ml 10ml IV PRN (09:00)
[2019-08-26] MEDS ORDERED: Heparin 1000 units/ml 1ml Vial INJ SCH (09:00)
--- NOTE | 2019-08-26 10:33 | Infectious Diseases Prog Note ---
Assessment/Plan Assessment/Plan antibiotics : zosyn 08.25.19 - A 1. VRE UTI s/p rx 2. + blood cultures with coag neg staph likely contaminated 3. respiratory failure 4. leucocytosis improving 5. gram negative pneumonia COVID 19 test negative x 2 6. renal failure on HD P 1. continue zosyn 2. will follow up cultures Subjective ROS Limited/Unobtainable: Yes Allergies: Coded Allergies: No Known Allergies (Unverified , 06/10/19) Objective Last 24 Hour Vital Signs Date Time Temp Pulse Resp B/P (MAP) Pulse Ox O2 Delivery O2 Flow Rate FiO2 08/26/19 08:52 78 08/26/19 08:00 Mechanical Ventilator 08/26/19 08:00 24 08/26/19 08:00 99.1 76 21 134/60 (84) 98 08/26/19 07:14 73 23 24 08/26/19 04:00 Mechanical Ventilator 08/26/19 04:00 99.2 73 21 140/55 (83) 98 08/26/19 04:00 24 08/26/19 03:45 72 08/26/19 03:12 73 21 24 08/26/19 00:00 99.1 70 19 136/55 (82) 98 08/26/19 00:00 Mechanical Ventilator 08/25/19 23:50 75 08/25/19 22:45 67 15 24 08/25/19 20:51 72 147/50 08/25/19 20:00 98.9 71 16 136/51 (79) 96 08/25/19 20:00 24 08/25/19 20:00 Mechanical Ventilator 08/25/19 20:00 73 08/25/19 18:55 71 19 24 08/25/19 16:00 99.5 73 20 148/61 (90) 99 08/25/19 16:00 Mechanical Ventilator 08/25/19 16:00 24 08/25/19 15:33 70 08/25/19 15:30 70 23 24 08/25/19 12:00 24 08/25/19 12:00 99.7 72 22 139/48 (78) 99 08/25/19 12:00 Mechanical Ventilator 08/25/19 11:28 72 08/25/19 11:00 73 24 24 Height (Feet): 6 Height (Inches): 7 Weight (Pounds): 166 HEENT: status post trach Respiratory/Chest: lungs clear Cardiovascular: normal rate, regular rhythm, no gallop/murmur Abdomen: soft, non tender, other - GT Extremities: no edema Microbiology Date/Time Source Procedure Growth Status 08/23/19 22:30 Sputum Gram Stain - Final Resulted 08/23/19 22:30 Sputum Culture - Preliminary Gram Negative Bacillus 1 Gram Negative Bacillus 2 Gram Negative Bacillus 3 Resulted Laboratory Tests Test 08/25/19 23:06 08/26/19 05:06 POC Whole Blood Glucose 173 MG/DL (74-106) H Pending Current Medications Medications (Trade) Dose Ordered Sig/Leonel Route PRN Reason Start Time Stop Time Status Last Admin Dose Admin Acetaminophen (Tylenol) 650 mg Q4H PRN GT Mild Pain / fever 08/09/19 05:30 09/08/19 05:29 08/23/19 23:35 Al Hydroxide/Mg Hydroxide (Mylanta) 30 ml FOUR TIMES A DAY PRN GT constipation 08/09/19 06:00 09/08/19 05:29 Ascorbic Acid (Vitamin C) 500 mg DAILY GT 08/09/19 09:00 09/08/19 08:59 08/26/19 08:34 Atorvastatin Calcium (Lipitor) 40 mg BEDTIME GT 08/09/19 21:00 11/07/19 20:59 08/25/19 20:50 Chlorhexidine Gluconate (Felipa-Hex 2%) 1 applic DAILY@2000 TOPIC 08/15/19 20:00 11/13/19 19:59 08/25/19 20:50 Clonidine HCl (Catapres Tab) 0.1 mg Q4H PRN GT SBP>150 08/12/19 10:45 11/10/19 06:44 08/24/19 13:02 Dextrose (Dextrose 50%) 25 ml Q30M PRN IV Hypoglycemia 08/09/19 07:30 11/07/19 07:29 Dextrose (Dextrose 50%) 50 ml Q30M PRN IV Hypoglycemia 08/09/19 07:30 11/07/19 07:29 Epoetin Andreas (Epoetin Andreas(ESRD on dialysis)) 10,000 unit WED-WED-WED SUBQ 08/18/19 21:00 11/16/19 20:59 08/25/19 20:51 Heparin Sodium (Porcine) (Heparin Sod 1000 units/ml 10ml) 2,000 unit ONCE PRN IV dialysis 08/26/19 09:00 08/26/19 23:59 Heparin Sodium (Porcine) (Heparin) 1,000 unit POSTHD INJ 08/26/19 09:00 08/26/19 23:59 Insulin Aspart (NovoLOG) Q6HR SUBQ 08/10/19 00:00 11/07/19 11:29 08/26/19 05:08 Lansoprazole (Prevacid) 30 mg DAILY GT 08/09/19 09:00 09/08/19 08:59 08/26/19 08:33 Loperamide HCl (Imodium) 2 mg Q4H PRN GT Diarrhea 08/09/19 08:00 09/08/19 07:59 08/22/19 17:53 Metoprolol Tartrate (Lopressor) 200 mg Q12HR GT 08/09/19 09:00 11/07/19 08:59 08/25/19 20:51 Minoxidil (Loniten) 5 mg DAILY GT 08/09/19 09:00 11/07/19 08:59 08/23/19 09:24 Multivitamins (Multivitamins W/ Minerals 15ml Liquid) 15 ml DAILY GT 08/09/19 09:00 09/08/19 08:59 08/26/19 08:34 Piperacillin Sod/ Tazobactam Sod 2.25 gm/Dextrose 55 ml @ 110 mls/hr Q8H IVPB 08/25/19 12:00 09/01/19 11:59 08/26/19 04:26 Sodium Chloride 1,000 ml @ 500 mls/hr Q2H PRN IVLG sbp<90 during hd 08/26/19 09:00 08/26/19 23:59 Vitamin B Complex/ Vit C/Folic Acid (Nephrovite) 1 tab DAILY GT 08/09/19 09:00 09/08/19 08:59 08/26/19 08:33 Vitamin D (Vitamin D) 1,000 intlu DAILY GT 08/09/19 09:00 09/08/19 08:59 08/26/19 08:34 Zinc Oxide (Zinc Oxide) 1 applic BID TOPIC 08/10/19 18:00 11/08/19 17:59 08/26/19 08:34 Farnaz Lyle MD Aug 26, 2019 10:33
[2019-08-26 12:00] VITALS: BP 151/60
--- NOTE | 2019-08-26 12:25 | General Progress Note ---
Assessment/Plan Assessment/Plan: Assessment - sigmoid distention on CT - suspect functional - Anemia - leukocytosis - stool OB (+) - EGD --> gastritis, Colonoscopy --> not planned since done recently - Renal failure - Sepsis / leukocytosis - Anasarca - resp failure, trach - dysphagia, GT - encephalopathy, contracted - Diarrhea, C Diff (-) x 2 - poor px Recommendations - continue TF - Iron panel noted - PPI - abx - supportive care Subjective Allergies: Coded Allergies: No Known Allergies (Unverified , 06/10/19) Subjective Above noted no events overnight NAD tolerating feeds d/w RN Objective Last 24 Hour Vital Signs Date Time Temp Pulse Resp B/P (MAP) Pulse Ox O2 Delivery O2 Flow Rate FiO2 08/26/19 11:02 78 21 24 08/26/19 08:52 78 08/26/19 08:00 Mechanical Ventilator 08/26/19 08:00 24 08/26/19 08:00 99.1 76 21 134/60 (84) 98 08/26/19 07:14 73 23 24 08/26/19 04:00 Mechanical Ventilator 08/26/19 04:00 99.2 73 21 140/55 (83) 98 08/26/19 04:00 24 08/26/19 03:45 72 08/26/19 03:12 73 21 24 08/26/19 00:00 99.1 70 19 136/55 (82) 98 08/26/19 00:00 Mechanical Ventilator 08/25/19 23:50 75 08/25/19 22:45 67 15 24 08/25/19 20:51 72 147/50 08/25/19 20:00 98.9 71 16 136/51 (79) 96 08/25/19 20:00 24 08/25/19 20:00 Mechanical Ventilator 08/25/19 20:00 73 08/25/19 18:55 71 19 24 08/25/19 16:00 99.5 73 20 148/61 (90) 99 08/25/19 16:00 Mechanical Ventilator 08/25/19 16:00 24 08/25/19 15:33 70 08/25/19 15:30 70 23 24 Intake and Output 08/25/19 08/26/19 19:00 07:00 Intake Total 695 ml 700 ml Output Total 150 ml Balance 695 ml 550 ml Free Water 100 ml IV Total 55 ml 220 ml Tube Feeding 540 ml 360 ml Other 120 ml Output Urine Total 150 ml Laboratory Tests 08/25/19 23:06: POC Whole Blood Glucose 173H 08/26/19 05:06: POC Whole Blood Glucose [Pending] 08/26/19 11:47: POC Whole Blood Glucose 168H Height (Feet): 6 Height (Inches): 7 Weight (Pounds): 166 Objective Debilitated AA man NCAT (+) trach coarse BS RR abd distended, anasarca, (+) GT ext (+) edema contracted Ronny Mustafa MD Aug 26, 2019 12:25
[2019-08-26 13:06] LABS: BASOPHILS % (AUTO) 1.2 % (0.0-2.0); EOSINOPHILS % (AUTO) 5.2 % (0.0-3.0); HEMATOCRIT 29.5 % (42.0-52.0); HEMOGLOBIN 9.2 G/DL (14.2-18.0); LYMPHOCYTES % (AUTO) 15.2 % (20.0-45.0); MEAN CORPUSCULAR VOLUME 87 FL (80-99); MONOCYTES % (AUTO) 5.9 % (1.0-10.0); NEUTROPHILS % (AUTO) 72.6 % (45.0-75.0); PLATELET COUNT 401 K/UL (150-450); RED BLOOD COUNT 3.41 M/UL (4.70-6.10); RED CELL DISTRIBUTION WIDTH 16.6 % (11.6-14.8)
--- NOTE | 2019-08-26 13:17 | Nephrology Progress Note ---
Assessment/Plan Problem List: (1) UTI (urinary tract infection) (2) VRE (vancomycin-resistant Enterococci) infection (3) Hyponatremia (4) CKD (chronic kidney disease) stage 5, GFR less than 15 ml/min (5) Malnutrition (6) Anasarca (7) Decubitus skin ulcer (8) Anemia (9) Ventilator dependent (10) Right lower lobe pneumonia Plan seen on HD 08/25 , continue antibiotics Subjective ROS Limited/Unobtainable: Yes Objective Objective Last 24 Hour Vital Signs Date Time Temp Pulse Resp B/P (MAP) Pulse Ox O2 Delivery O2 Flow Rate FiO2 08/26/19 11:02 78 21 24 08/26/19 08:52 78 08/26/19 08:00 Mechanical Ventilator 08/26/19 08:00 24 08/26/19 08:00 99.1 76 21 134/60 (84) 98 08/26/19 07:14 73 23 24 08/26/19 04:00 Mechanical Ventilator 08/26/19 04:00 99.2 73 21 140/55 (83) 98 08/26/19 04:00 24 08/26/19 03:45 72 08/26/19 03:12 73 21 24 08/26/19 00:00 99.1 70 19 136/55 (82) 98 08/26/19 00:00 Mechanical Ventilator 08/25/19 23:50 75 08/25/19 22:45 67 15 24 08/25/19 20:51 72 147/50 08/25/19 20:00 98.9 71 16 136/51 (79) 96 08/25/19 20:00 24 08/25/19 20:00 Mechanical Ventilator 08/25/19 20:00 73 08/25/19 18:55 71 19 24 08/25/19 16:00 99.5 73 20 148/61 (90) 99 08/25/19 16:00 Mechanical Ventilator 08/25/19 16:00 24 08/25/19 15:33 70 08/25/19 15:30 70 23 24 Intake and Output 08/25/19 08/26/19 19:00 07:00 Intake Total 695 ml 700 ml Output Total 150 ml Balance 695 ml 550 ml Free Water 100 ml IV Total 55 ml 220 ml Tube Feeding 540 ml 360 ml Other 120 ml Output Urine Total 150 ml Laboratory Tests 08/25/19 23:06: POC Whole Blood Glucose 173H 08/26/19 05:06: POC Whole Blood Glucose [Pending] 08/26/19 11:47: POC Whole Blood Glucose 168H 08/26/19 12:15: White Blood Count 14.0H, Red Blood Count 3.41L, Hemoglobin 9.2L, Hematocrit 29.5L, Mean Corpuscular Volume 87, Mean Corpuscular Hemoglobin 26.9L, Mean Corpuscular Hemoglobin Concent 31.0L, Red Cell Distribution Width 16.6H, Platelet Count 401, Mean Platelet Volume 6.6, Neutrophils (%) (Auto) 72.6, Lymphocytes (%) (Auto) 15.2L, Monocytes (%) (Auto) 5.9, Eosinophils (%) (Auto) 5.2H, Basophils (%) (Auto) 1.2, Pro-B-Type Natriuretic Peptide 5985H Height (Feet): 6 Height (Inches): 7 Weight (Pounds): 166 General Appearance: lethargic, other - on vent Cardiovascular: regular rhythm Respiratory/Chest: rhonchi - bilaterally Abdomen: soft Extremities: trace edema Neurologic: motor weakness Carmelo Frank MD Aug 26, 2019 13:17
--- NOTE | 2019-08-26 14:00 | NUR ---
NURSE NOTES: Per lab unable to draw TSPOT lab today. Per lab sample is a send out and cannot be sent out during the weekend. Per lab will draw TSPOT sample on Wednesday. Dr. James yen, acknowledged and gave no new orders at this time. Charge nurse, nurse tutorial laboratory supervisor made aware. Will continue to monitor patient.
[2019-08-26] MEDS ORDERED: NS 275ml ONE (14:04)
[2019-08-26] MEDS ORDERED: Tubing IV Secondary IV ONE (14:04)
[2019-08-26 15:03] LABS: ANION GAP 6 mmol/L (5-15); BLOOD UREA NITROGEN 48 mg/dL (7-18); CALCIUM 8.6 MG/DL (8.5-10.1); CARBON DIOXIDE 30 MMOL/L (21-32); CHLORIDE 105 MMOL/L (98-107); CREATININE 1.8 MG/DL (0.55-1.30); POTASSIUM 3.7 MMOL/L (3.5-5.1); SODIUM 141 MMOL/L (136-145)
[2019-08-26 16:00] VITALS: BP 151/67
--- NOTE | 2019-08-26 16:00 | Surgery Progress Note ---
Surgery Progress Note Subjective Procedure Performed Right femoral temporary hemodialysis catheter insertion Additional Comments no acute events labs noted Objective Last 24 Hour Vital Signs Date Time Temp Pulse Resp B/P (MAP) Pulse Ox O2 Delivery O2 Flow Rate FiO2 08/26/19 15:02 80 23 24 08/26/19 12:00 75 08/26/19 12:00 Mechanical Ventilator 08/26/19 12:00 98.6 74 23 151/60 (90) 98 08/26/19 12:00 24 08/26/19 11:02 78 21 24 08/26/19 08:52 78 08/26/19 08:00 Mechanical Ventilator 08/26/19 08:00 24 08/26/19 08:00 99.1 76 21 134/60 (84) 98 08/26/19 07:14 73 23 24 08/26/19 04:00 Mechanical Ventilator 08/26/19 04:00 99.2 73 21 140/55 (83) 98 08/26/19 04:00 24 08/26/19 03:45 72 08/26/19 03:12 73 21 24 08/26/19 00:00 99.1 70 19 136/55 (82) 98 08/26/19 00:00 Mechanical Ventilator 08/25/19 23:50 75 08/25/19 22:45 67 15 24 08/25/19 20:51 72 147/50 08/25/19 20:00 98.9 71 16 136/51 (79) 96 08/25/19 20:00 24 08/25/19 20:00 Mechanical Ventilator 08/25/19 20:00 73 08/25/19 18:55 71 19 24 I&O Intake and Output 08/25/19 08/26/19 19:00 07:00 Intake Total 695 ml 700 ml Output Total 150 ml Balance 695 ml 550 ml Free Water 100 ml IV Total 55 ml 220 ml Tube Feeding 540 ml 360 ml Other 120 ml Output Urine Total 150 ml Dressing: saturated Wound: clean Cardiovascular: RSR Respiratory: decreased breath sounds Abdomen: soft, non-tender, present bowel sounds Extremities: edema, no cyanosis Laboratory Tests Test 08/25/19 23:06 08/26/19 05:06 08/26/19 11:47 08/26/19 12:15 POC Whole Blood Glucose 173 MG/DL (74-106) H Pending 168 MG/DL (74-106) H White Blood Count 14.0 K/UL (4.8-10.8) H Red Blood Count 3.41 M/UL (4.70-6.10) L Hemoglobin 9.2 G/DL (14.2-18.0) L Hematocrit 29.5 % (42.0-52.0) L Mean Corpuscular Volume 87 FL (80-99) Mean Corpuscular Hemoglobin 26.9 PG (27.0-31.0) L Mean Corpuscular Hemoglobin Concent 31.0 G/DL (32.0-36.0) L Red Cell Distribution Width 16.6 % (11.6-14.8) H Platelet Count 401 K/UL (150-450) Mean Platelet Volume 6.6 FL (6.5-10.1) Neutrophils (%) (Auto) 72.6 % (45.0-75.0) Lymphocytes (%) (Auto) 15.2 % (20.0-45.0) L Monocytes (%) (Auto) 5.9 % (1.0-10.0) Eosinophils (%) (Auto) 5.2 % (0.0-3.0) H Basophils (%) (Auto) 1.2 % (0.0-2.0) Sodium Level 141 MMOL/L (136-145) Potassium Level 3.7 MMOL/L (3.5-5.1) Chloride Level 105 MMOL/L (98-107) Carbon Dioxide Level 30 MMOL/L (21-32) Anion Gap 6 mmol/L (5-15) Blood Urea Nitrogen 48 mg/dL (7-18) H Creatinine 1.8 MG/DL (0.55-1.30) H Estimat Glomerular Filtration Rate 36.7 mL/min (>60) Glucose Level 165 MG/DL (74-106) H Calcium Level 8.6 MG/DL (8.5-10.1) Pro-B-Type Natriuretic Peptide 5985 pg/mL (0-125) H Plan Problems: (1) Anemia (2) Hyponatremia (3) Leukocytosis Assessment & Plan: Tracheostomy, left chest pacemaker are again demonstrated. There is bilateral interstitial and airspace disease and bilateral pleural fluid again demonstrated. This appears more severe than on the prior study. Bilateral interstitial and airspace infiltrates versus edema. Bilateral pleural effusions Leukocytosis, anemia, tachycardia, abnormal labs. Wound evaluated and likely etiology of patient's sepsis. Leukocytosis etiology work-up antibiotics per infectious disease Appreciate nephrology input transfuse with dialysis We will follow with recommendations thank you allowing participation's care plan HD access temp HD discussed with medical teams line okay HD as per renal persistent leukocytosis flow cyto noted (4) Ventilator dependent (5) Right lower lobe pneumonia (6) Hypokalemia (7) Hyperkalemia (8) Anasarca (9) Decubitus skin ulcer Assessment & Plan: pt presented on admission with generalized edemae.Skin assessed under tracheostomy and no areas of concerns noted. GT Insertion is marginally erythematous with small amt slough at stoma. Unstageable Pressure Injury R elbow. Base of wound is 100% yellow slough, Borders are erythematous. Wound oozing small amt haemopurulent exudate.Darker skin tone without elevation in skin temp or erythema periwound. Pt's penis and scrotum are grossly edematous and enlarged and weeping serous exudate from numerous sites both from penis and scrotum. Two small open wounds noted at base of at base of shaft of penis ,and contreras aspect of scrotum. Both wounds oozing large amt sanguineous and serosanguineous exudate. Multiple open wounds with Biofilm at base of each wounds noted to contreras/lateral,inferior and posterior aspects of scrotum. These wounds noted to be oozing moderate amts of serosanguineous exudate. Hypertrophic scar with scattered areas of hyperpigmentation noted to Sacrum. DTPI noted to L Buttocks (L)7cm x (W)9cm. Base of wound is purple and indurated.Darker skin tone without erythema, induration or fluctuance R and L ischial tuberosities. Both heels are boggy with non-blanchable erythema. Tx.Plan: Cleanse wound R elbow with Saline. Apply TheraHoney, Apply Moisture Barrier Paste periwound. Cover with Optifoam drsg.Change Daily and prn. Wash GT site with soap and water.Pat dry. Apply Zinc Oxide Paste to GT site Daily. Leave Open to Air. Apply Zinc Oxide Paste to entire Scrotum, Place ABD pads to R and L lateral, and posterior aspects of scrotum TWICE daily. Apply Cavilon Skin Barrier to malleoli and both Heels. Cover each site with Optifoam drsgs. Change every 7 days and prn. Reposition at least every 2hours or as tolerated. Off-load heels with Pillows. APM/BECCA Mattress overlay. (10) Malnutrition Assessment & Plan: DAILY ESTIMATED NEEDS: Needs based on Renal, critical care, wound/ 61kg 22-30 kcals/kg 9169-2109 total kcals 1.25-2 g protein/kg 76-122 g total protein Fluid per MD, now on HD NUTRITION DIAGNOSIS: * Swallowing difficulty R/T respiratory failure, dysphagia as evidenced by trach/vent dep, PEG dep * Increased kcal/prot needs R/T wound healing as evidenced by admitted w/ multiple pressure injuries including full thickness wounds at junction of Shaft of penis, dorsal scrotum, R elbow, and DTPI @ L buttocks. CURRENT TF:Nepro @ 45ml/hr x 24 hrs ENTERAL NUTRITION RECOMMENDATIONS: NEPRO @ 40ml/hr x 24 hrs to provide 960ml, 1728kcal , 78g prot, 697ml free water * Decrease goal rate to 40ml/hr x 24hrs -> meets 100% est kcal/prot needs * HOB over 30 degrees/ water flush per MD WITH CONTINUED DIARRHEA AND CONSISTENTLY LOW LYTES, consider TF change to carb controlled, elemental TF Vital AF 1.2-> rec goal rate of 55ml/hr x 24 hrs to provide 1320ml, 1584kcal, 99g prot, 1070ml free water, 2228mg K and 1114mg phos ADDITIONAL RECOMMENDATIONS: * Per SNF: HT=63" PZ=992 lbs (Vs EMR wt of 166lbs) -> obtain re-calibrated bedscale wt, rec daily wt monitoring * Wound healing: continue Nephrovite x 1 and Garo BID Vit C dosing per Nephro * Monitor renal fxn and lytes-> pt now on HD rec checking f/up phos (0.9* on 08/21) * Add probiotics to help alleviate diarrhea (11) Uremia (12) CKD (chronic kidney disease) stage 5, GFR less than 15 ml/min (13) Colon distention Assessment & Plan: discussed with GI likely functional as having lots of loose bm rectal tube kub f/u Marked distention of the sigmoid colon. 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 No evidence of bowel wall thickening or pneumatosis 12 mm focus of contrast enhancement in the right pectineus muscle. While nonspecific in appearance, appearance raises concern for a possible pseudoaneurysm. Ill- defined thickening of the pectus medius muscle could indicate some intramuscular hemorrhage. The above findings were phoned to Dr. Urias at the time of interpretation Large bilateral pleural effusions Hazy pulmonary parenchymal opacities as well as dense consolidative opacities most likely represent pulmonary edema, but could represent pneumonia Evidence of anasarca elsewhere, with generalized edema of the subcutaneous fat Bladder wall thickening, raises concern for cystitis. Avalos catheter in place Colonic diverticulosis. No evidence of diverticulitis. Tracheostomy Pacemaker Gastrostomy Jonathan Urias Aug 26, 2019 16:00
--- NOTE | 2019-08-26 16:42 | NUR ---
CASE MANAGEMENT:REVIEW SI;SEPSIS. AC/CHR RENAL FAILURE on HD. ANASARCA. 99.2 80 23 151/60 98% TRACH/VENT FIO2 @ 24% WBC 14 BUN 48 CR 1.8 PRO BNP 5985 IS;IVF NS BOLUS HEPARIN ZOSYN IV Q8 PREVACID GT LONITEN GT SDU STATUS DCP;FROM [facility]
--- NOTE | 2019-08-26 19:30 | NUR ---
NURSE NOTES: Received report from Srinivas DAVEY
[2019-08-26 20:00] VITALS: BP 136/82
--- NOTE | 2019-08-26 20:00 | NUR ---
NURSE NOTES: patient in bed obtunded. no moaning no facial grimaces noted. Trach to vent no s/s of acute distress noted. Temp 99.1 axillary cooling measure provided. On GT feeding Nephro at 45cc/hr. Rectal tube intact. Avalos draining. On P200 mattress for wound management. Contact isolation maintained and observed. Right femoral Rancho cath intact, dressing intact. Noted with Swollen scrotum. no s/s of hypo/hyperglycemia. Bed alarm on. Bed locked and in low position. will continue plan of care.
[2019-08-26] MEDS: Dyna-Hex 2% Top Sol 2oz TOPIC SCH (20:57)
[2019-08-26] MEDS: Atorvastatin 20mg tab GT SCH (20:58)
[2019-08-26] MEDS: Acetaminophen 650mg/20.3ml GT PRN (21:44)
[2019-08-27] VITALS: BP 118/63
[2019-08-27] MEDS: NovoLOG Insulin Flexpen SUBQ SCH ×5 (00:39→23:58)
--- NOTE | 2019-08-27 01:00 | NUR ---
NURSE NOTES: Bed bath given tolerated well.
[2019-08-27 04:30] VITALS: BP 184/80
[2019-08-27] MEDS: Piperacillin/Tazobactam 2.25 GM in D5W 55 ML IVPB SCH (04:39)
--- NOTE | 2019-08-27 07:06 | NUR ---
HAND-OFF: Report given to Raleigh DAVEY.
[2019-08-27 07:59] VITALS: BP 151/67
[2019-08-27] MEDS: Multivitamins W/Minerals 15 ML UDC GT SCH (08:07)
[2019-08-27] MEDS: Zinc Oxide Oint 2oz TOPIC SCH ×2 (08:07→17:16)
[2019-08-27] MEDS: Nephrovite tab (Rena-Vite) GT SCH (08:07)
[2019-08-27] MEDS: Vitamin D 1000 IU Tab GT SCH (08:07)
[2019-08-27] MEDS: Minoxidil 2.5mg tab GT SCH (08:07)
[2019-08-27] MEDS: Metoprolol Tartrate 100mg tab GT SCH ×2 (08:08→20:21)
[2019-08-27] MEDS: Ascorbic Acid 500mg tab GT SCH (08:08)
--- NOTE | 2019-08-27 08:13 | Pulmonology Progress Note ---
Subjective ROS Limited/Unobtainable: No Constitutional: Reports: no symptoms, fever, other - As=250.2 Gastrointestinal/Abdominal: Reports: no symptoms, diarrhea Allergies: Coded Allergies: No Known Allergies (Unverified , 06/10/19) Objective Last 24 Hour Vital Signs Date Time Temp Pulse Resp B/P (MAP) Pulse Ox O2 Delivery O2 Flow Rate FiO2 08/27/19 08:08 66 151/67 08/27/19 08:07 151/67 08/27/19 08:00 24 08/27/19 08:00 Mechanical Ventilator 08/27/19 07:59 97.3 66 18 151/67 (95) 100 08/27/19 04:39 184/80 08/27/19 04:30 97.1 65 18 184/80 (114) 100 08/27/19 04:00 Mechanical Ventilator 08/27/19 04:00 24 08/27/19 04:00 66 08/27/19 02:49 78 19 24 08/27/19 00:00 Mechanical Ventilator 08/27/19 00:00 97.7 65 19 118/63 (81) 100 08/27/19 00:00 24 08/27/19 00:00 63 08/26/19 22:45 77 21 24 08/26/19 22:14 99.1 08/26/19 20:58 75 136/82 08/26/19 20:00 76 08/26/19 20:00 24 08/26/19 20:00 99.1 75 19 136/82 (100) 100 08/26/19 20:00 Mechanical Ventilator 08/26/19 19:39 83 25 24 08/26/19 16:00 Mechanical Ventilator 08/26/19 16:00 75 08/26/19 16:00 98.2 79 23 151/67 (95) 99 08/26/19 16:00 24 08/26/19 15:02 80 23 24 08/26/19 12:00 75 08/26/19 12:00 Mechanical Ventilator 08/26/19 12:00 98.6 74 23 151/60 (90) 98 08/26/19 12:00 24 08/26/19 11:02 78 21 24 08/26/19 08:52 78 Intake and Output 08/26/19 08/27/19 19:00 07:00 Intake Total 45 ml 875 ml Output Total 2000 ml Balance -1955 ml 875 ml Free Water 150 ml IV Total 110 ml Tube Feeding 45 ml 495 ml Other 120 ml Hemodialysis UF 2000 ml # Bowel Movements 21 Laboratory Tests 08/26/19 11:47: POC Whole Blood Glucose 168H 08/26/19 12:15: White Blood Count 14.0H, Red Blood Count 3.41L, Hemoglobin 9.2L, Hematocrit 29.5L, Mean Corpuscular Volume 87, Mean Corpuscular Hemoglobin 26.9L, Mean Corpuscular Hemoglobin Concent 31.0L, Red Cell Distribution Width 16.6H, Platelet Count 401, Mean Platelet Volume 6.6, Neutrophils (%) (Auto) 72.6, Lymphocytes (%) (Auto) 15.2L, Monocytes (%) (Auto) 5.9, Eosinophils (%) (Auto) 5.2H, Basophils (%) (Auto) 1.2, Sodium Level 141, Potassium Level 3.7, Chloride Level 105, Carbon Dioxide Level 30, Anion Gap 6, Blood Urea Nitrogen 48H, Creatinine 1.8H, Estimat Glomerular Filtration Rate 36.7, Glucose Level 165H, Calcium Level 8.6, Pro-B-Type Natriuretic Peptide 5985H 08/26/19 16:42: POC Whole Blood Glucose 179H Current Medications Medications (Trade) Dose Ordered Sig/Leonel Route PRN Reason Start Time Stop Time Status Last Admin Dose Admin Acetaminophen (Tylenol) 650 mg Q4H PRN GT Mild Pain / fever 08/09/19 05:30 09/08/19 05:29 08/26/19 21:44 Al Hydroxide/Mg Hydroxide (Mylanta) 30 ml FOUR TIMES A DAY PRN GT constipation 08/09/19 06:00 09/08/19 05:29 Ascorbic Acid (Vitamin C) 500 mg DAILY GT 08/09/19 09:00 09/08/19 08:59 08/27/19 08:08 Atorvastatin Calcium (Lipitor) 40 mg BEDTIME GT 08/09/19 21:00 11/07/19 20:59 08/26/19 20:58 Chlorhexidine Gluconate (Felipa-Hex 2%) 1 applic DAILY@2000 TOPIC 08/15/19 20:00 11/13/19 19:59 08/26/19 20:57 Clonidine HCl (Catapres Tab) 0.1 mg Q4H PRN GT SBP>150 08/12/19 10:45 11/10/19 06:44 08/27/19 04:39 Dextrose (Dextrose 50%) 25 ml Q30M PRN IV Hypoglycemia 08/09/19 07:30 11/07/19 07:29 Dextrose (Dextrose 50%) 50 ml Q30M PRN IV Hypoglycemia 08/09/19 07:30 11/07/19 07:29 Epoetin Andreas (Epoetin Andreas(ESRD on dialysis)) 10,000 unit SUBQ 08/18/19 21:00 11/16/19 20:59 08/25/19 20:51 Insulin Aspart (NovoLOG) Q6HR SUBQ 08/10/19 00:00 11/07/19 11:29 08/27/19 00:39 Lansoprazole (Prevacid) 30 mg DAILY GT 08/09/19 09:00 09/08/19 08:59 08/27/19 08:07 Loperamide HCl (Imodium) 2 mg Q4H PRN GT Diarrhea 08/09/19 08:00 09/08/19 07:59 08/22/19 17:53 Metoprolol Tartrate (Lopressor) 200 mg Q12HR GT 08/09/19 09:00 11/07/19 08:59 08/27/19 08:08 Minoxidil (Loniten) 5 mg DAILY GT 08/09/19 09:00 11/07/19 08:59 08/27/19 08:07 Multivitamins (Multivitamins W/ Minerals 15ml Liquid) 15 ml DAILY GT 08/09/19 09:00 09/08/19 08:59 08/27/19 08:07 Piperacillin Sod/ Tazobactam Sod 2.25 gm/Dextrose 55 ml @ 110 mls/hr Q8H IVPB 08/25/19 12:00 09/01/19 11:59 08/27/19 04:39 Vitamin B Complex/ Vit C/Folic Acid (Nephrovite) 1 tab DAILY GT 08/09/19 09:00 09/08/19 08:59 08/27/19 08:07 Vitamin D (Vitamin D) 1,000 intlu DAILY GT 08/09/19 09:00 09/08/19 08:59 08/27/19 08:07 Zinc Oxide (Zinc Oxide) 1 applic BID TOPIC 08/10/19 18:00 11/08/19 17:59 08/27/19 08:07 Assessment/Plan Assessment/Plan Pulmonary Progress Note Assessment/Plan: IMPRESSION: 1. anemia. 2. GI bleed. 3. Leukocytosis. 4. Probable sepsis. + BCX 5. Acute on chronic renal failure. 6. Hyponatremia. 7. Severe protein-calorie malnutrition. 8. Significantly elevated C-reactive protein concerning for infectious etiology. 9. Tracheostomy, G-tube. 10. Ventilator dependence. 11. anasarca with bilateral pleural effusion 12. Hematuria PLAN consider LTAC care noted on vent surgical follow up monitor labs rate control monitor renal function: HD iv antibiotics care noted and reviewed remains ill difficult to place with need for HD and vent unstable impression, plan, and exam edited and reviewed in detail care discussed with RN Subjective Allergies: Coded Allergies: No Known Allergies (Unverified , 06/10/19) Subjective remains ill on vent on HD + hematuria and some rectal bleeding Height (Feet): 6 Height (Inches): 7 Weight (Pounds): 166 Objective Vital Signs Noted GENERAL: Ill-appearing male, chronically debilitated. HEENT: Tracheostomy in midline. Questionable fullness in the submandibular region. LUNGS: Coarse breath sounds. reduced breath sounds CARDIAC: S1, S2. Regular rate and rhythm. ABDOMEN: Soft. G-tube. EXTREMITIES: With noted edema. NEUROLOGICAL: Poorly responsive, weak diffusely. Laboratory Tests Noted Kenny Mccurdy MD Aug 27, 2019 08:13
--- NOTE | 2019-08-27 08:37 | Hematology/Onc Progress Note ---
Assessment/Plan Assessment/Plan Assessment/recs # Leukocytosis - with multiple infections, VRE UTI --> wbc trend 33-->28-->25->23->22->23->24->17.3-->17-->14 --> on abx, linezolid and zosyn--> zosyn-->off --> + blood cultures with coag neg staph likely contaminated --> as per id recs --> has ordered a flow cytometry (with pathology) --> does show increased nK cell activity --> JOURDAN 2 and bcr-abl labs ordered (these are send outs) # Anemia due to chronic disease/kidney disease as well, gi bleed + occult + noted --> was on iron in the past, now on hold --> has been started on epogen --> as per renal care --> egd done and shows gastritis --> on ppi --> egd showed gastritis, colo recently done --> hgb 9-->8.7-->7.6-->9.2-->8.9-->9.2 # Respiratory failure --> per pulm, s/p trach --> COVID 19 test negative x 2 # Dysphagia s/p gtube with nepro --> per gi # ESRD with r fem julito --> hd as per renal # Dvt ppx scds Appreciate consultation and dw Rn Subjective Constitutional: Denies: no symptoms, chills, fever, malaise, weakness, other Cardiovascular: Denies: no symptoms, chest pain, edema, irregular heart rate, lightheadedness, palpitations, syncope, other Respiratory: Denies: no symptoms, cough, shortness of breath, SOB with excertion, SOB at rest, sputum, wheezing, other Gastrointestinal/Abdominal: Denies: no symptoms, abdomen distended, abdominal pain, black stools, tarry stools, blood in stool, constipated, diarrhea, difficulty swallowing, nausea, poor appetite, poor fluid intake, rectal bleeding , vomiting, other Neurologic/Psychiatric: Denies: no symptoms, anxiety, depressed, emotional problems, headache, numbness, paresthesia, pre-existing deficit, seizure, tingling, tremors, weakness, other Endocrine: Denies: no symptoms, excessive sweating, flushing, intolerance to cold, intolerance to heat, increased hunger, increased thirst, increased urine, unexplained weight gain, unexplained weight loss, other Allergies: Coded Allergies: No Known Allergies (Unverified , 06/10/19) Subjective 08/15 meds noted, no bleeding, hgb 8.8, wbc 28, path flow pending 08/16 flow pending dw pathologist, results pending, wbc 25, hgb 9 08/17 labs reviewed, meds reviewed, meds noted, no night sweats 08/19 remains obtunded, on vent/trach, no bleeding wbc 21.7 08/20 labs have been reviewed, no bleeding, wbc still elev, path reviewed 08/21 labs are noted, no bleeding, on vent, wbc better 08/22 labs noted, no bleeding, meds reviewed, wbc 24 hgb 7.6 08/23 vent, off abx, c diff negative, h/h stable 08/24 labs reviewed, on abx, wbc 17, hgb 8.9, no hemolysis 08/26 reviewed flow and is negative for leukemia, dw rn Objective Objective Current Medications Medications (Trade) Dose Ordered Sig/Leonel Route PRN Reason Start Time Stop Time Status Last Admin Dose Admin Acetaminophen (Tylenol) 650 mg Q4H PRN GT Mild Pain / fever 08/09/19 05:30 09/08/19 05:29 08/26/19 21:44 Al Hydroxide/Mg Hydroxide (Mylanta) 30 ml FOUR TIMES A DAY PRN GT constipation 08/09/19 06:00 09/08/19 05:29 Ascorbic Acid (Vitamin C) 500 mg DAILY GT 08/09/19 09:00 09/08/19 08:59 08/27/19 08:08 Atorvastatin Calcium (Lipitor) 40 mg BEDTIME GT 08/09/19 21:00 11/07/19 20:59 08/26/19 20:58 Chlorhexidine Gluconate (Felipa-Hex 2%) 1 applic DAILY@1999 TOPIC 08/15/19 20:00 11/13/19 19:59 08/26/19 20:57 Clonidine HCl (Catapres Tab) 0.1 mg Q4H PRN GT SBP>150 08/12/19 10:45 11/10/19 06:44 08/27/19 04:39 Dextrose (Dextrose 50%) 25 ml Q30M PRN IV Hypoglycemia 08/09/19 07:30 11/07/19 07:29 Dextrose (Dextrose 50%) 50 ml Q30M PRN IV Hypoglycemia 08/09/19 07:30 11/07/19 07:29 Epoetin Andreas (Epoetin Andreas(ESRD on dialysis)) 10,000 unit SUBQ 08/18/19 21:00 11/16/19 20:59 08/25/19 20:51 Insulin Aspart (NovoLOG) Q6HR SUBQ 08/10/19 00:00 11/07/19 11:29 08/27/19 00:39 Lansoprazole (Prevacid) 30 mg DAILY GT 08/09/19 09:00 09/08/19 08:59 08/27/19 08:07 Loperamide HCl (Imodium) 2 mg Q4H PRN GT Diarrhea 08/09/19 08:00 09/08/19 07:59 08/22/19 17:53 Metoprolol Tartrate (Lopressor) 200 mg Q12HR GT 08/09/19 09:00 11/07/19 08:59 08/27/19 08:08 Minoxidil (Loniten) 5 mg DAILY GT 08/09/19 09:00 11/07/19 08:59 08/27/19 08:07 Multivitamins (Multivitamins W/ Minerals 15ml Liquid) 15 ml DAILY GT 08/09/19 09:00 09/08/19 08:59 08/27/19 08:07 Piperacillin Sod/ Tazobactam Sod 2.25 gm/Dextrose 55 ml @ 110 mls/hr Q8H IVPB 08/25/19 12:00 09/01/19 11:59 08/27/19 04:39 Vitamin B Complex/ Vit C/Folic Acid (Nephrovite) 1 tab DAILY GT 08/09/19 09:00 09/08/19 08:59 08/27/19 08:07 Vitamin D (Vitamin D) 1,000 intlu DAILY GT 08/09/19 09:00 09/08/19 08:59 08/27/19 08:07 Zinc Oxide (Zinc Oxide) 1 applic BID TOPIC 08/10/19 18:00 11/08/19 17:59 08/27/19 08:07 Last 24 Hour Vital Signs Date Time Temp Pulse Resp B/P (MAP) Pulse Ox O2 Delivery O2 Flow Rate FiO2 08/27/19 08:08 66 151/67 08/27/19 08:07 151/67 08/27/19 08:00 24 08/27/19 08:00 Mechanical Ventilator 08/27/19 07:59 97.3 66 18 151/67 (95) 100 08/27/19 04:39 184/80 08/27/19 04:30 97.1 65 18 184/80 (114) 100 08/27/19 04:00 Mechanical Ventilator 08/27/19 04:00 24 08/27/19 04:00 66 08/27/19 02:49 78 19 24 08/27/19 00:00 Mechanical Ventilator 08/27/19 00:00 97.7 65 19 118/63 (81) 100 08/27/19 00:00 24 08/27/19 00:00 63 08/26/19 22:45 77 21 24 08/26/19 22:14 99.1 08/26/19 20:58 75 136/82 08/26/19 20:00 76 08/26/19 20:00 24 08/26/19 20:00 99.1 75 19 136/82 (100) 100 08/26/19 20:00 Mechanical Ventilator 08/26/19 19:39 83 25 24 08/26/19 16:00 Mechanical Ventilator 08/26/19 16:00 75 08/26/19 16:00 98.2 79 23 151/67 (95) 99 08/26/19 16:00 24 08/26/19 15:02 80 23 24 08/26/19 12:00 75 08/26/19 12:00 Mechanical Ventilator 08/26/19 12:00 98.6 74 23 151/60 (90) 98 08/26/19 12:00 24 08/26/19 11:02 78 21 24 08/26/19 08:52 78 08/26/19 08:00 Mechanical Ventilator 08/26/19 08:00 24 08/26/19 08:00 99.1 76 21 134/60 (84) 98 08/26/19 07:14 73 23 24 08/26/19 04:00 Mechanical Ventilator 08/26/19 04:00 99.2 73 21 140/55 (83) 98 08/26/19 04:00 24 08/26/19 03:45 72 08/26/19 03:12 73 21 24 08/26/19 00:00 99.1 70 19 136/55 (82) 98 08/26/19 00:00 Mechanical Ventilator 08/25/19 23:50 75 08/25/19 22:45 67 15 24 08/25/19 20:51 72 147/50 08/25/19 20:00 98.9 71 16 136/51 (79) 96 08/25/19 20:00 24 08/25/19 20:00 Mechanical Ventilator 08/25/19 20:00 73 08/25/19 18:55 71 19 24 08/25/19 16:00 99.5 73 20 148/61 (90) 99 08/25/19 16:00 Mechanical Ventilator 08/25/19 16:00 24 08/25/19 15:33 70 08/25/19 15:30 70 23 24 08/25/19 12:00 24 08/25/19 12:00 99.7 72 22 139/48 (78) 99 08/25/19 12:00 Mechanical Ventilator 08/25/19 11:28 72 08/25/19 11:00 73 24 24 Intake and Output 08/26/19 08/27/19 19:00 07:00 Intake Total 45 ml 875 ml Output Total 2000 ml Balance -1955 ml 875 ml Free Water 150 ml IV Total 110 ml Tube Feeding 45 ml 495 ml Other 120 ml Hemodialysis UF 2000 ml # Bowel Movements 21 Labs Test 08/24/19 12:15 08/24/19 17:57 08/24/19 23:00 08/25/19 03:30 POC Whole Blood Glucose 151 MG/DL (74-106) 157 MG/DL (74-106) White Blood Count 17.3 K/UL (4.8-10.8) Red Blood Count 3.29 M/UL (4.70-6.10) Hemoglobin 8.9 G/DL (14.2-18.0) Hematocrit 28.6 % (42.0-52.0) Mean Corpuscular Volume 87 FL (80-99) Mean Corpuscular Hemoglobin 27.0 PG (27.0-31.0) Mean Corpuscular Hemoglobin Concent 31.0 G/DL (32.0-36.0) Red Cell Distribution Width 16.8 % (11.6-14.8) Platelet Count 318 K/UL (150-450) Mean Platelet Volume 6.6 FL (6.5-10.1) Neutrophils (%) (Auto) 75.2 % (45.0-75.0) Lymphocytes (%) (Auto) 12.5 % (20.0-45.0) Monocytes (%) (Auto) 8.9 % (1.0-10.0) Eosinophils (%) (Auto) 2.9 % (0.0-3.0) Basophils (%) (Auto) 0.6 % (0.0-2.0) Sodium Level 141 MMOL/L (136-145) Potassium Level 3.1 MMOL/L (3.5-5.1) Chloride Level 105 MMOL/L (98-107) Carbon Dioxide Level 30 MMOL/L (21-32) Anion Gap 6 mmol/L (5-15) Blood Urea Nitrogen 44 mg/dL (7-18) Creatinine 2.0 MG/DL (0.55-1.30) Estimat Glomerular Filtration Rate 32.5 mL/min (>60) Glucose Level 186 MG/DL (74-106) Calcium Level 8.5 MG/DL (8.5-10.1) Total Bilirubin 0.4 MG/DL (0.2-1.0) Aspartate Amino Transf (AST/SGOT) 35 U/L (15-37) Alanine Aminotransferase (ALT/SGPT) 25 U/L (12-78) Alkaline Phosphatase 330 U/L (46-116) Total Protein 7.2 G/DL (6.4-8.2) Albumin 1.3 G/DL (3.4-5.0) Globulin 5.9 g/dL Albumin/Globulin Ratio 0.2 (1.0-2.7) Test 08/25/19 04:55 08/25/19 23:06 08/26/19 05:06 08/26/19 11:47 POC Whole Blood Glucose 180 MG/DL (74-106) 173 MG/DL (74-106) 168 MG/DL (74-106) Test 08/26/19 12:15 08/26/19 16:42 White Blood Count 14.0 K/UL (4.8-10.8) Red Blood Count 3.41 M/UL (4.70-6.10) Hemoglobin 9.2 G/DL (14.2-18.0) Hematocrit 29.5 % (42.0-52.0) Mean Corpuscular Volume 87 FL (80-99) Mean Corpuscular Hemoglobin 26.9 PG (27.0-31.0) Mean Corpuscular Hemoglobin Concent 31.0 G/DL (32.0-36.0) Red Cell Distribution Width 16.6 % (11.6-14.8) Platelet Count 401 K/UL (150-450) Mean Platelet Volume 6.6 FL (6.5-10.1) Neutrophils (%) (Auto) 72.6 % (45.0-75.0) Lymphocytes (%) (Auto) 15.2 % (20.0-45.0) Monocytes (%) (Auto) 5.9 % (1.0-10.0) Eosinophils (%) (Auto) 5.2 % (0.0-3.0) Basophils (%) (Auto) 1.2 % (0.0-2.0) Sodium Level 141 MMOL/L (136-145) Potassium Level 3.7 MMOL/L (3.5-5.1) Chloride Level 105 MMOL/L (98-107) Carbon Dioxide Level 30 MMOL/L (21-32) Anion Gap 6 mmol/L (5-15) Blood Urea Nitrogen 48 mg/dL (7-18) Creatinine 1.8 MG/DL (0.55-1.30) Estimat Glomerular Filtration Rate 36.7 mL/min (>60) Glucose Level 165 MG/DL (74-106) Calcium Level 8.6 MG/DL (8.5-10.1) Pro-B-Type Natriuretic Peptide 5985 pg/mL (0-125) POC Whole Blood Glucose 179 MG/DL (74-106) Height (Feet): 6 Height (Inches): 7 Weight (Pounds): 166 Objective Physical Exam General Appearance: nad, Chronically Ill Head: normocephalic Eyes: right eye PERRL - Will not open left eye ENT: moist mucus membranes Neck: other - submandibular mass R, fairly rigid with resistance to rotation to L, tracheotomy Respiratory: decreased breath sounds, crackles, other - pacemaker, vent+ Cardiovascular: regular rate, rhythm, edema - anasarca Gastrointestinal: non tender, distended, other - G tube Genitourinary: other Musculoskeletal: other - Contractures all extremities Neurologic: sensory intact, motor weakness, responsive Psychiatric: other Skin: Decubitus/Ulcer - Stage III right elbow, stage III left elbow, stage II sacrum, stage III scrotum, warm/dry Fitz Campos MD Aug 27, 2019 08:37
--- NOTE | 2019-08-27 10:29 | Infectious Diseases Prog Note ---
Assessment/Plan Assessment/Plan A: 1. Pneumonia with Klebsiella, pseudomonas & providencia COVID19 X2 : negative 2. Renal failure, ESRD 3. Leukocytosis improving 4. Respiratory failure, Ventilator dependent 5. Anemia 6. Anasarca 7. 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 Change Zosyn to Cefepime 2. Add colistin inhaler Subjective ROS Limited/Unobtainable: Yes Constitutional: Denies: fever Allergies: Coded Allergies: No Known Allergies (Unverified , 06/10/19) Objective Last 24 Hour Vital Signs Date Time Temp Pulse Resp B/P (MAP) Pulse Ox O2 Delivery O2 Flow Rate FiO2 08/27/19 08:08 66 151/67 08/27/19 08:07 151/67 08/27/19 08:00 24 08/27/19 08:00 63 08/27/19 08:00 Mechanical Ventilator 08/27/19 07:59 97.3 66 18 151/67 (95) 100 08/27/19 04:39 184/80 08/27/19 04:30 97.1 65 18 184/80 (114) 100 08/27/19 04:00 Mechanical Ventilator 08/27/19 04:00 24 08/27/19 04:00 66 08/27/19 02:49 78 19 24 08/27/19 00:00 Mechanical Ventilator 08/27/19 00:00 97.7 65 19 118/63 (81) 100 08/27/19 00:00 24 08/27/19 00:00 63 08/26/19 22:45 77 21 24 08/26/19 22:14 99.1 08/26/19 20:58 75 136/82 08/26/19 20:00 76 08/26/19 20:00 24 08/26/19 20:00 99.1 75 19 136/82 (100) 100 08/26/19 20:00 Mechanical Ventilator 08/26/19 19:39 83 25 24 08/26/19 16:00 Mechanical Ventilator 08/26/19 16:00 75 08/26/19 16:00 98.2 79 23 151/67 (95) 99 08/26/19 16:00 24 08/26/19 15:02 80 23 24 08/26/19 12:00 75 08/26/19 12:00 Mechanical Ventilator 08/26/19 12:00 98.6 74 23 151/60 (90) 98 08/26/19 12:00 24 08/26/19 11:02 78 21 24 Height (Feet): 6 Height (Inches): 7 Weight (Pounds): 166 Respiratory/Chest: lungs clear, other - on ventilator Cardiovascular: normal rate Abdomen: soft, non tender, other - GT feeding Skin: other - generalized edema Neurologic/Psychiatric: aphasia Laboratory Tests Test 08/26/19 11:47 08/26/19 12:15 08/26/19 16:42 POC Whole Blood Glucose 168 MG/DL (74-106) H 179 MG/DL (74-106) H White Blood Count 14.0 K/UL (4.8-10.8) H Red Blood Count 3.41 M/UL (4.70-6.10) L Hemoglobin 9.2 G/DL (14.2-18.0) L Hematocrit 29.5 % (42.0-52.0) L Mean Corpuscular Volume 87 FL (80-99) Mean Corpuscular Hemoglobin 26.9 PG (27.0-31.0) L Mean Corpuscular Hemoglobin Concent 31.0 G/DL (32.0-36.0) L Red Cell Distribution Width 16.6 % (11.6-14.8) H Platelet Count 401 K/UL (150-450) Mean Platelet Volume 6.6 FL (6.5-10.1) Neutrophils (%) (Auto) 72.6 % (45.0-75.0) Lymphocytes (%) (Auto) 15.2 % (20.0-45.0) L Monocytes (%) (Auto) 5.9 % (1.0-10.0) Eosinophils (%) (Auto) 5.2 % (0.0-3.0) H Basophils (%) (Auto) 1.2 % (0.0-2.0) Sodium Level 141 MMOL/L (136-145) Potassium Level 3.7 MMOL/L (3.5-5.1) Chloride Level 105 MMOL/L (98-107) Carbon Dioxide Level 30 MMOL/L (21-32) Anion Gap 6 mmol/L (5-15) Blood Urea Nitrogen 48 mg/dL (7-18) H Creatinine 1.8 MG/DL (0.55-1.30) H Estimat Glomerular Filtration Rate 36.7 mL/min (>60) Glucose Level 165 MG/DL (74-106) H Calcium Level 8.6 MG/DL (8.5-10.1) Pro-B-Type Natriuretic Peptide 5985 pg/mL (0-125) H Current Medications Medications (Trade) Dose Ordered Sig/Leonel Route PRN Reason Start Time Stop Time Status Last Admin Dose Admin Acetaminophen (Tylenol) 650 mg Q4H PRN GT Mild Pain / fever 08/09/19 05:30 09/08/19 05:29 08/26/19 21:44 Al Hydroxide/Mg Hydroxide (Mylanta) 30 ml FOUR TIMES A DAY PRN GT constipation 08/09/19 06:00 09/08/19 05:29 Ascorbic Acid (Vitamin C) 500 mg DAILY GT 08/09/19 09:00 09/08/19 08:59 08/27/19 08:08 Atorvastatin Calcium (Lipitor) 40 mg BEDTIME GT 08/09/19 21:00 11/07/19 20:59 08/26/19 20:58 Chlorhexidine Gluconate (Felipa-Hex 2%) 1 applic DAILY@1999 TOPIC 08/15/19 20:00 11/13/19 19:59 08/26/19 20:57 Clonidine HCl (Catapres Tab) 0.1 mg Q4H PRN GT SBP>150 08/12/19 10:45 11/10/19 06:44 08/27/19 04:39 Dextrose (Dextrose 50%) 25 ml Q30M PRN IV Hypoglycemia 08/09/19 07:30 11/07/19 07:29 Dextrose (Dextrose 50%) 50 ml Q30M PRN IV Hypoglycemia 08/09/19 07:30 11/07/19 07:29 Epoetin Andreas (Epoetin Andreas(ESRD on dialysis)) 10,000 unit WED-WED-WED SUBQ 08/18/19 21:00 11/16/19 20:59 08/25/19 20:51 Insulin Aspart (NovoLOG) Q6HR SUBQ 08/10/19 00:00 11/07/19 11:29 08/27/19 00:39 Lansoprazole (Prevacid) 30 mg DAILY GT 08/09/19 09:00 09/08/19 08:59 08/27/19 08:07 Loperamide HCl (Imodium) 2 mg Q4H PRN GT Diarrhea 08/09/19 08:00 09/08/19 07:59 08/22/19 17:53 Metoprolol Tartrate (Lopressor) 200 mg Q12HR GT 08/09/19 09:00 11/07/19 08:59 08/27/19 08:08 Minoxidil (Loniten) 5 mg DAILY GT 08/09/19 09:00 11/07/19 08:59 08/27/19 08:07 Multivitamins (Multivitamins W/ Minerals 15ml Liquid) 15 ml DAILY GT 08/09/19 09:00 09/08/19 08:59 08/27/19 08:07 Piperacillin Sod/ Tazobactam Sod 2.25 gm/Dextrose 55 ml @ 110 mls/hr Q8H IVPB 08/25/19 12:00 09/01/19 11:59 08/27/19 04:39 Vitamin B Complex/ Vit C/Folic Acid (Nephrovite) 1 tab DAILY GT 08/09/19 09:00 09/08/19 08:59 08/27/19 08:07 Vitamin D (Vitamin D) 1,000 intlu DAILY GT 08/09/19 09:00 09/08/19 08:59 08/27/19 08:07 Zinc Oxide (Zinc Oxide) 1 applic BID TOPIC 08/10/19 18:00 11/08/19 17:59 08/27/19 08:07 Real De Leon MD Aug 27, 2019 10:29
[2019-08-27] MEDS: Cefepime HCl 1 GM in D5W 55 ML IVPB SCH (10:50)
[2019-08-27] MEDS: Colistin for inhalation INH SCH ×2 (11:38→23:00)
[2019-08-27 12:00] VITALS: BP 132/72
--- NOTE | 2019-08-27 12:45 | Nephrology Progress Note ---
Assessment/Plan Problem List: (1) UTI (urinary tract infection) (2) VRE (vancomycin-resistant Enterococci) infection (3) Hyponatremia (4) CKD (chronic kidney disease) stage 5, GFR less than 15 ml/min (5) Malnutrition (6) Anasarca (7) Decubitus skin ulcer (8) Anemia (9) Ventilator dependent (10) Right lower lobe pneumonia Plan HD 08/25 , continue antibiotics Subjective ROS Limited/Unobtainable: Yes Objective Objective Last 24 Hour Vital Signs Date Time Temp Pulse Resp B/P (MAP) Pulse Ox O2 Delivery O2 Flow Rate FiO2 08/27/19 12:00 24 08/27/19 12:00 97.7 63 18 132/72 (92) 100 08/27/19 12:00 Mechanical Ventilator 08/27/19 12:00 65 08/27/19 11:39 64 16 100 Mechanical Ventilator 24 64 17 24 08/27/19 08:08 66 151/67 08/27/19 08:07 151/67 08/27/19 08:00 24 08/27/19 08:00 63 08/27/19 08:00 Mechanical Ventilator 08/27/19 07:59 97.3 66 18 151/67 (95) 100 08/27/19 04:39 184/80 08/27/19 04:30 97.1 65 18 184/80 (114) 100 08/27/19 04:00 Mechanical Ventilator 08/27/19 04:00 24 08/27/19 04:00 66 08/27/19 02:49 78 19 24 08/27/19 00:00 Mechanical Ventilator 08/27/19 00:00 97.7 65 19 118/63 (81) 100 08/27/19 00:00 24 08/27/19 00:00 63 08/26/19 22:45 77 21 24 08/26/19 22:14 99.1 08/26/19 20:58 75 136/82 08/26/19 20:00 76 08/26/19 20:00 24 08/26/19 20:00 99.1 75 19 136/82 (100) 100 08/26/19 20:00 Mechanical Ventilator 08/26/19 19:39 83 25 24 08/26/19 16:00 Mechanical Ventilator 08/26/19 16:00 75 08/26/19 16:00 98.2 79 23 151/67 (95) 99 08/26/19 16:00 24 08/26/19 15:02 80 23 24 Intake and Output 08/26/19 08/27/19 19:00 07:00 Intake Total 45 ml 875 ml Output Total 2000 ml Balance -1955 ml 875 ml Free Water 150 ml IV Total 110 ml Tube Feeding 45 ml 495 ml Other 120 ml Hemodialysis UF 2000 ml # Bowel Movements 21 Laboratory Tests 08/26/19 16:42: POC Whole Blood Glucose 179H 08/27/19 11:44: POC Whole Blood Glucose 191H Height (Feet): 6 Height (Inches): 7 Weight (Pounds): 165 General Appearance: lethargic, other - on vent Cardiovascular: regular rhythm Respiratory/Chest: rhonchi - bilaterally Abdomen: soft Extremities: trace edema Neurologic: motor weakness, disoriented Carmelo Frank MD Aug 27, 2019 12:45
[2019-08-27] MEDS ORDERED: NS 275ml ONE (13:22)
--- NOTE | 2019-08-27 14:01 | Surgery Progress Note ---
Surgery Progress Note Subjective Procedure Performed Right femoral temporary hemodialysis catheter insertion Additional Comments wbc improved exam stable labs noted no n/v/f/c Objective Last 24 Hour Vital Signs Date Time Temp Pulse Resp B/P (MAP) Pulse Ox O2 Delivery O2 Flow Rate FiO2 08/27/19 12:00 24 08/27/19 12:00 97.7 63 18 132/72 (92) 100 08/27/19 12:00 Mechanical Ventilator 08/27/19 12:00 65 08/27/19 11:39 64 16 100 Mechanical Ventilator 24 64 17 24 08/27/19 08:08 66 151/67 08/27/19 08:07 151/67 08/27/19 08:00 24 08/27/19 08:00 63 08/27/19 08:00 Mechanical Ventilator 08/27/19 07:59 97.3 66 18 151/67 (95) 100 08/27/19 04:39 184/80 08/27/19 04:30 97.1 65 18 184/80 (114) 100 08/27/19 04:00 Mechanical Ventilator 08/27/19 04:00 24 08/27/19 04:00 66 08/27/19 02:49 78 19 24 08/27/19 00:00 Mechanical Ventilator 08/27/19 00:00 97.7 65 19 118/63 (81) 100 08/27/19 00:00 24 08/27/19 00:00 63 08/26/19 22:45 77 21 24 08/26/19 22:14 99.1 08/26/19 20:58 75 136/82 08/26/19 20:00 76 08/26/19 20:00 24 08/26/19 20:00 99.1 75 19 136/82 (100) 100 08/26/19 20:00 Mechanical Ventilator 08/26/19 19:39 83 25 24 08/26/19 16:00 Mechanical Ventilator 08/26/19 16:00 75 08/26/19 16:00 98.2 79 23 151/67 (95) 99 08/26/19 16:00 24 08/26/19 15:02 80 23 24 I&O Intake and Output 08/26/19 08/27/19 19:00 07:00 Intake Total 45 ml 875 ml Output Total 2000 ml Balance -1955 ml 875 ml Free Water 150 ml IV Total 110 ml Tube Feeding 45 ml 495 ml Other 120 ml Hemodialysis UF 2000 ml # Bowel Movements 21 Dressing: other Wound: other Drains: other Cardiovascular: RSR Respiratory: decreased breath sounds Abdomen: soft, non-tender, present bowel sounds Extremities: no tenderness, no cyanosis Laboratory Tests Test 08/26/19 16:42 08/27/19 11:44 POC Whole Blood Glucose 179 MG/DL (74-106) H 191 MG/DL (74-106) H Plan Problems: (1) Anemia (2) Hyponatremia (3) Leukocytosis Assessment & Plan: Tracheostomy, left chest pacemaker are again demonstrated. There is bilateral interstitial and airspace disease and bilateral pleural fluid again demonstrated. This appears more severe than on the prior study. Bilateral interstitial and airspace infiltrates versus edema. Bilateral pleural effusions Leukocytosis, anemia, tachycardia, abnormal labs. Wound evaluated and likely etiology of patient's sepsis. Leukocytosis etiology work-up antibiotics per infectious disease Appreciate nephrology input transfuse with dialysis We will follow with recommendations thank you allowing participation's care plan HD access temp HD discussed with medical teams line okay HD as per renal persistent leukocytosis flow cyto noted (4) Ventilator dependent (5) Right lower lobe pneumonia (6) Hypokalemia (7) Hyperkalemia (8) Anasarca (9) Decubitus skin ulcer Assessment & Plan: pt presented on admission with generalized edemae.Skin assessed under tracheostomy and no areas of concerns noted. GT Insertion is marginally erythematous with small amt slough at stoma. Unstageable Pressure Injury R elbow. Base of wound is 100% yellow slough, Borders are erythematous. Wound oozing small amt haemopurulent exudate.Darker skin tone without elevation in skin temp or erythema periwound. Pt's penis and scrotum are grossly edematous and enlarged and weeping serous exudate from numerous sites both from penis and scrotum. Two small open wounds noted at base of at base of shaft of penis ,and contreras aspect of scrotum. Both wounds oozing large amt sanguineous and serosanguineous exudate. Multiple open wounds with Biofilm at base of each wounds noted to contreras/lateral,inferior and posterior aspects of scrotum. These wounds noted to be oozing moderate amts of serosanguineous exudate. Hypertrophic scar with scattered areas of hyperpigmentation noted to Sacrum. DTPI noted to L Buttocks (L)7cm x (W)9cm. Base of wound is purple and indurated.Darker skin tone without erythema, induration or fluctuance R and L ischial tuberosities. Both heels are boggy with non-blanchable erythema. Tx.Plan: Cleanse wound R elbow with Saline. Apply TheraHoney, Apply Moisture Barrier Paste periwound. Cover with Optifoam drsg.Change Daily and prn. Wash GT site with soap and water.Pat dry. Apply Zinc Oxide Paste to GT site Daily. Leave Open to Air. Apply Zinc Oxide Paste to entire Scrotum, Place ABD pads to R and L lateral, and posterior aspects of scrotum TWICE daily. Apply Cavilon Skin Barrier to malleoli and both Heels. Cover each site with Optifoam drsgs. Change every 7 days and prn. Reposition at least every 2hours or as tolerated. Off-load heels with Pillows. APM/BECCA Mattress overlay. (10) Malnutrition Assessment & Plan: DAILY ESTIMATED NEEDS: Needs based on Renal, critical care, wound/ 61kg 22-30 kcals/kg 2974-7759 total kcals 1.25-2 g protein/kg 76-122 g total protein Fluid per MD, now on HD NUTRITION DIAGNOSIS: * Swallowing difficulty R/T respiratory failure, dysphagia as evidenced by trach/vent dep, PEG dep * Increased kcal/prot needs R/T wound healing as evidenced by admitted w/ multiple pressure injuries including full thickness wounds at junction of Shaft of penis, dorsal scrotum, R elbow, and DTPI @ L buttocks. CURRENT TF:Nepro @ 45ml/hr x 24 hrs ENTERAL NUTRITION RECOMMENDATIONS: NEPRO @ 40ml/hr x 24 hrs to provide 960ml, 1728kcal , 78g prot, 697ml free water * Decrease goal rate to 40ml/hr x 24hrs -> meets 100% est kcal/prot needs * HOB over 30 degrees/ water flush per MD WITH CONTINUED DIARRHEA AND CONSISTENTLY LOW LYTES, consider TF change to carb controlled, elemental TF Vital AF 1.2-> rec goal rate of 55ml/hr x 24 hrs to provide 1320ml, 1584kcal, 99g prot, 1070ml free water, 2228mg K and 1114mg phos ADDITIONAL RECOMMENDATIONS: * Per SNF: HT=63" PE=101 lbs (Vs EMR wt of 166lbs) -> obtain re-calibrated bedscale wt, rec daily wt monitoring * Wound healing: continue Nephrovite x 1 and Garo BID Vit C dosing per Nephro * Monitor renal fxn and lytes-> pt now on HD rec checking f/up phos (0.9* on 08/21) * Add probiotics to help alleviate diarrhea (11) Uremia (12) CKD (chronic kidney disease) stage 5, GFR less than 15 ml/min (13) Colon distention Assessment & Plan: discussed with GI likely functional as having lots of loose bm rectal tube kub f/u Marked distention of the sigmoid colon. 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 No evidence of bowel wall thickening or pneumatosis 12 mm focus of contrast enhancement in the right pectineus muscle. While nonspecific in appearance, appearance raises concern for a possible pseudoaneurysm. Ill- defined thickening of the pectus medius muscle could indicate some intramuscular hemorrhage. The above findings were phoned to Dr. Urias at the time of interpretation Large bilateral pleural effusions Hazy pulmonary parenchymal opacities as well as dense consolidative opacities most likely represent pulmonary edema, but could represent pneumonia Evidence of anasarca elsewhere, with generalized edema of the subcutaneous fat Bladder wall thickening, raises concern for cystitis. Avalos catheter in place Colonic diverticulosis. No evidence of diverticulitis. Tracheostomy Pacemaker Gastrostomy Jonathan Urias Aug 27, 2019 14:01
[2019-08-27 15:54] VITALS: BP 148/67
--- NOTE | 2019-08-27 16:05 | General Progress Note ---
Assessment/Plan Assessment/Plan: Assessment - sigmoid distention on CT - suspect functional - Anemia - leukocytosis - stool OB (+) - EGD --> gastritis, Colonoscopy --> not planned since done recently - Renal failure - Sepsis / leukocytosis - Anasarca - resp failure, trach - dysphagia, GT - encephalopathy, contracted - Diarrhea, C Diff (-) x 2 - poor px Recommendations - continue TF - Iron panel noted - PPI - abx - supportive care Subjective Allergies: Coded Allergies: No Known Allergies (Unverified , 06/10/19) Subjective Above noted no events overnight NAD tolerating feeds d/w RN Objective Last 24 Hour Vital Signs Date Time Temp Pulse Resp B/P (MAP) Pulse Ox O2 Delivery O2 Flow Rate FiO2 08/27/19 15:55 24 08/27/19 15:54 98.2 68 18 148/67 (94) 100 08/27/19 15:53 Mechanical Ventilator 08/27/19 12:00 24 08/27/19 12:00 97.7 63 18 132/72 (92) 100 08/27/19 12:00 Mechanical Ventilator 08/27/19 12:00 65 08/27/19 11:39 64 16 100 Mechanical Ventilator 24 64 17 24 08/27/19 08:08 66 151/67 08/27/19 08:07 151/67 08/27/19 08:00 24 08/27/19 08:00 63 08/27/19 08:00 Mechanical Ventilator 08/27/19 07:59 97.3 66 18 151/67 (95) 100 08/27/19 04:39 184/80 08/27/19 04:30 97.1 65 18 184/80 (114) 100 08/27/19 04:00 Mechanical Ventilator 08/27/19 04:00 24 08/27/19 04:00 66 08/27/19 02:49 78 19 24 08/27/19 00:00 Mechanical Ventilator 08/27/19 00:00 97.7 65 19 118/63 (81) 100 08/27/19 00:00 24 08/27/19 00:00 63 08/26/19 22:45 77 21 24 08/26/19 22:14 99.1 08/26/19 20:58 75 136/82 08/26/19 20:00 76 7/18/20 20:00 24 08/26/19 20:00 99.1 75 19 136/82 (100) 100 08/26/19 20:00 Mechanical Ventilator 08/26/19 19:39 83 25 24 Intake and Output 08/26/19 08/27/19 19:00 07:00 Intake Total 45 ml 875 ml Output Total 2000 ml Balance -1955 ml 875 ml Free Water 150 ml IV Total 110 ml Tube Feeding 45 ml 495 ml Other 120 ml Hemodialysis UF 2000 ml # Bowel Movements 21 Laboratory Tests 08/26/19 16:42: POC Whole Blood Glucose 179H 08/27/19 11:44: POC Whole Blood Glucose 191H Height (Feet): 6 Height (Inches): 7 Weight (Pounds): 165 Objective Debilitated AA man NCAT (+) trach coarse BS RR abd distended, anasarca, (+) GT ext (+) edema contracted Ronny Mustafa MD Aug 27, 2019 16:05
--- NOTE | 2019-08-27 19:17 | NUR ---
HAND-OFF: Report given to Ana Davis RN.
--- NOTE | 2019-08-27 19:18 | NUR ---
NURSE NOTES: received pt from Srinivas DAVEY., pt is resting on the bed obtunded. trach in place, no Respiratory distress noted. O2sat is at 100%. no active bleeding noted.no SOB noted. Gtube site intact, clean and patent. Bilateral soft wrist restrain noted, pulse noted, skin intact, no edema. rectal tube in place. right femoral Rancho noted, site is intact, clean, and patent. left hand 22 G IV clean, patent, and intact. bed at the lowest position, alarmed, and locked. call light within reach. will continue to monitor pt with plan of care.
[2019-08-27 20:00] VITALS: BP 110/50
[2019-08-27] MEDS: Atorvastatin 20mg tab GT SCH (20:20)
[2019-08-27] MEDS: Dyna-Hex 2% Top Sol 2oz TOPIC SCH (20:20)
[2019-08-28] VITALS: BP 146/62
--- NOTE | 2019-08-28 02:00 | NUR ---
NURSE NOTES: cleaned pt and provided new gown, new blanket. repositioned Q 2hrs. no SOB noted. no active bleed noted. call light within reach. will continue to monitor pt with plan of care.
[2019-08-28 04:00] VITALS: BP 145/76
[2019-08-28] MEDS: NovoLOG Insulin Flexpen SUBQ SCH ×3 (05:57→17:43)
--- NOTE | 2019-08-28 07:20 | NUR ---
HAND-OFF: Report given to Aimee DAVEY., pt is stable condition, endorsed plan of care.no active bleed noted
--- NOTE | 2019-08-28 07:30 | NUR ---
NURSE NOTES: Received report from TAMICA Muhammad. The patient is resting on the bed without acute distress or shortness of breath. The patient is [facility] and on ventilator and communication made by facial expression and body movement. The patient is obtunded and opening eyes with painful tactile stimuli. V-paced withe spike with HR of 60s on the syruper. [facility] on following setting and oxygen saturation is 99-100%: Portex 8, AC 15, TV 450, FiO2 24% PEEP 5. GT intact and patent and running Nephro @45mL/hr per order and no residual noted. Avalos and Rectal tube intact and patent and draining by gravity. R Femoral Rancho for HD access and dressing was changed on 08/24/2019. Skin issue noted and dressing intact. The patient's IV site changed from L hand 22G to R hand 22G that is intact and patent. The patient's bed in the lowest position, call light in reach, and fall and aspiration precaution reinforced. Will follow up the order and lab. Will closely monitor the patient. Will continue plan of care.
[2019-08-28 08:00] VITALS: BP 142/69
--- NOTE | 2019-08-28 08:00 | NUR ---
NURSE NOTES: Morning vital signs completed. Stable at this time. Will closely monitor the patient. Will continue plan of care.
--- NOTE | 2019-08-28 08:38 | General Progress Note ---
Assessment/Plan Assessment/Plan: IMPRESSION: 1. anemia. 2. GI bleed. 3. Leukocytosis. 4. Probable sepsis. + BCX 5. Acute on chronic renal failure. 6. Hyponatremia. 7. Severe protein-calorie malnutrition. 8. Significantly elevated C-reactive protein concerning for infectious etiology. 9. Tracheostomy, G-tube. 10. Ventilator dependence. 11. anasarca with bilateral pleural effusion 12. Hematuria PLAN needs placement care noted on vent surgical follow up monitor labs rate control monitor renal function: HD prognosis poor impression, plan, and exam edited and reviewed in detail care discussed with RN Subjective Allergies: Coded Allergies: No Known Allergies (Unverified , 06/10/19) Subjective remains ill on vent on HD Objective Last 24 Hour Vital Signs Date Time Temp Pulse Resp B/P (MAP) Pulse Ox O2 Delivery O2 Flow Rate FiO2 08/28/19 07:05 70 23 24 08/28/19 04:00 24 08/28/19 04:00 Mechanical Ventilator 08/28/19 04:00 98.4 73 17 145/76 (99) 100 08/28/19 03:27 72 08/28/19 03:09 66 21 24 08/28/19 00:00 99.2 72 17 146/62 (90) 100 08/28/19 00:00 Mechanical Ventilator 08/27/19 23:30 72 08/27/19 22:50 69 15 100 Mechanical Ventilator 24 60 15 24 08/27/19 20:21 71 140/56 08/27/19 20:00 99.1 72 18 110/50 (70) 100 08/27/19 20:00 72 08/27/19 20:00 24 08/27/19 20:00 Mechanical Ventilator 08/27/19 19:30 71 18 24 08/27/19 16:00 68 08/27/19 15:55 24 08/27/19 15:54 98.2 68 18 148/67 (94) 100 08/27/19 15:53 Mechanical Ventilator 08/27/19 14:52 64 16 24 08/27/19 12:00 24 08/27/19 12:00 97.7 63 18 132/72 (92) 100 08/27/19 12:00 Mechanical Ventilator 08/27/19 12:00 65 08/27/19 11:39 64 16 100 Mechanical Ventilator 24 64 17 24 Intake and Output 08/27/19 08/28/19 19:00 07:00 Intake Total 795 ml 600 ml Output Total 200 ml 350 ml Balance 595 ml 250 ml Free Water 200 ml 60 ml IV Total 55 ml Tube Feeding 540 ml 540 ml Output Urine Total 200 ml 250 ml Stool Total 100 ml # Bowel Movements 100 Laboratory Tests 08/27/19 11:44: POC Whole Blood Glucose 191H 08/27/19 16:33: POC Whole Blood Glucose 148H 08/27/19 23:54: POC Whole Blood Glucose [Pending] 08/28/19 05:56: POC Whole Blood Glucose [Pending] 08/28/19 08:10: White Blood Count [Pending], Red Blood Count [Pending], Hemoglobin [Pending], Hematocrit [Pending], Mean Corpuscular Volume [Pending], Mean Corpuscular Hemoglobin [Pending], Mean Corpuscular Hemoglobin Concent [Pending], Red Cell Distribution Width [Pending], Platelet Count [Pending], Mean Platelet Volume [ Pending], Neutrophils (%) (Auto) [Pending], Lymphocytes (%) (Auto) [Pending], Monocytes (%) (Auto) [Pending], Eosinophils (%) (Auto) [Pending], Basophils (%) (Auto) [Pending], Sodium Level [Pending], Potassium Level [Pending], Chloride Level [Pending], Carbon Dioxide Level [Pending], Blood Urea Nitrogen [Pending], Creatinine [Pending], Estimat Glomerular Filtration Rate [Pending], Glucose Level [Pending], Calcium Level [Pending], Total Bilirubin [Pending], Aspartate Amino Transf (AST/SGOT) [Pending], Alanine Aminotransferase (ALT/SGPT) [Pending] , Alkaline Phosphatase [Pending], Total Protein [Pending], Albumin [Pending], Globulin [Pending] Height (Feet): 6 Height (Inches): 7 Weight (Pounds): 165 Objective GENERAL: Ill-appearing male, chronically debilitated. HEENT: Tracheostomy in midline. Questionable fullness in the submandibular region. LUNGS: Coarse breath sounds. reduced breath sounds CARDIAC: S1, S2. Regular rate and rhythm. ABDOMEN: Soft. G-tube. EXTREMITIES: With noted edema. NEUROLOGICAL: Poorly responsive, weak diffusely. Kain Ramirez MD Aug 28, 2019 08:38
[2019-08-28 08:45] LABS: BASOPHILS % (AUTO) 1.2 % (0.0-2.0); EOSINOPHILS % (AUTO) 6.4 % (0.0-3.0); HEMATOCRIT 29.5 % (42.0-52.0); HEMOGLOBIN 9.3 G/DL (14.2-18.0); LYMPHOCYTES % (AUTO) 13.1 % (20.0-45.0); MEAN CORPUSCULAR VOLUME 85 FL (80-99); MONOCYTES % (AUTO) 8.9 % (1.0-10.0); NEUTROPHILS % (AUTO) 70.4 % (45.0-75.0); PLATELET COUNT 511 K/UL (150-450); RED BLOOD COUNT 3.46 M/UL (4.70-6.10); RED CELL DISTRIBUTION WIDTH 16.3 % (11.6-14.8); WHITE BLOOD COUNT 14.4 K/UL (4.8-10.8)
[2019-08-28] MEDS: Minoxidil 2.5mg tab GT SCH (08:48)
[2019-08-28] MEDS: Multivitamins W/Minerals 15 ML UDC GT SCH (08:49)
[2019-08-28] MEDS: Nephrovite tab (Rena-Vite) GT SCH (08:49)
[2019-08-28] MEDS: Metoprolol Tartrate 100mg tab GT SCH ×2 (08:49→20:52)
[2019-08-28] MEDS: Ascorbic Acid 500mg tab GT SCH (08:49)
[2019-08-28] MEDS: Vitamin D 1000 IU Tab GT SCH (08:50)
[2019-08-28] MEDS: Zinc Oxide Oint 2oz TOPIC SCH ×2 (08:50→17:43)
--- NOTE | 2019-08-28 09:00 | NUR ---
NURSE NOTES: The patient is scheduled for Tunnel cath placement per order. Called radiology regarding the schedule. Per radiology, their schedule is busy and only can be done on coming Wednesday. Notified to Dr. Pichardo. Per Dr. Pichardo, it is urgent and needs to be done as soon as possible. Called radiology again and spoke with Jennifer and was told that it cannot be done today. Notified CRN regarding the update. Notified to Dr. Pichardo regarding the status. Will continue plan of care.
[2019-08-28 09:06] LABS: ALANINE AMINOTRANSFERASE 29 U/L (12-78); ALBUMIN 1.3 G/DL (3.4-5.0); ALBUMIN/GLOBULIN RATIO 0.2 (1.0-2.7); ALKALINE PHOSPHATASE 324 U/L (46-116); ANION GAP 5 mmol/L (5-15); ASPARTATE AMINO TRANSFERASE 46 U/L (15-37); BILIRUBIN,TOTAL 0.3 MG/DL (0.2-1.0); BLOOD UREA NITROGEN 68 mg/dL (7-18); CALCIUM 9.1 MG/DL (8.5-10.1); CARBON DIOXIDE 31 MMOL/L (21-32); CHLORIDE 102 MMOL/L (98-107); CREATININE 2.5 MG/DL (0.55-1.30); SODIUM 139 MMOL/L (136-145)
--- NOTE | 2019-08-28 09:20 | NUR ---
NURSE NOTES: Notified Dr. Pichardo regarding critical result of potassium, which was 2.5. Dr. Pichardo ordered KCL 10mEq x2 total of 20mEq via IVPB route. Will administer as ordered. Will closely monitor the patient. Will continue plan of care.
[2019-08-28 09:30] LABS: POTASSIUM 2.5 MMOL/L (3.5-5.1)
[2019-08-28] MEDS ORDERED: Sodium Chloride for KCL Premix x 2hrs IV SCH (09:45)
--- NOTE | 2019-08-28 10:00 | NUR ---
NURSE NOTE: Morning medications administered per order. The patient tolerated well. Will closely monitor the patient. Will continue plan of care.
--- NOTE | 2019-08-28 10:30 | NUR ---
NURSE NOTES: Dr. Mustafa at the bedside assessed the patient. Notified the patient's condition of diarrhea. Dr. Mustafa ordered to repeat C. diff. Will closely monitor the patient. Will continue plan of care.
[2019-08-28] MEDS: Colistin for inhalation INH SCH ×2 (10:32→23:44)
[2019-08-28] MEDS: Cefepime HCl 1 GM in D5W 55 ML IVPB SCH (11:06)
--- NOTE | 2019-08-28 11:26 | Infectious Diseases Prog Note ---
Assessment/Plan Assessment/Plan antibiotics : cefepime, inhaled colsitin 7. - A 1. VRE UTI s/p rx 2. + blood cultures with coag neg staph likely contaminated 3. respiratory failure 4. leucocytosis improving 5. klebsiella, pseudomonas, providencia pneumonia COVID 19 test negative x 2 6. renal failure on HD P 1. continue cefepime, inhaled colistin 5 more days 2. will follow up cultures Subjective ROS Limited/Unobtainable: Yes Allergies: Coded Allergies: No Known Allergies (Unverified , 06/10/19) Objective Last 24 Hour Vital Signs Date Time Temp Pulse Resp B/P (MAP) Pulse Ox O2 Delivery O2 Flow Rate FiO2 08/28/19 10:42 65 19 100 Mechanical Ventilator 24 65 19 24 08/28/19 08:49 68 147/50 08/28/19 08:48 147/50 08/28/19 08:00 98.3 69 18 142/69 (93) 100 08/28/19 08:00 24 08/28/19 08:00 68 08/28/19 08:00 Mechanical Ventilator 08/28/19 07:05 70 23 24 08/28/19 04:00 24 08/28/19 04:00 Mechanical Ventilator 08/28/19 04:00 98.4 73 17 145/76 (99) 100 08/28/19 03:27 72 08/28/19 03:09 66 21 24 08/28/19 00:00 99.2 72 17 146/62 (90) 100 08/28/19 00:00 Mechanical Ventilator 08/27/19 23:30 72 08/27/19 22:50 69 15 100 Mechanical Ventilator 24 60 15 24 08/27/19 20:21 71 140/56 08/27/19 20:00 99.1 72 18 110/50 (70) 100 08/27/19 20:00 72 08/27/19 20:00 24 08/27/19 20:00 Mechanical Ventilator 08/27/19 19:30 71 18 24 08/27/19 16:00 68 08/27/19 15:55 24 08/27/19 15:54 98.2 68 18 148/67 (94) 100 08/27/19 15:53 Mechanical Ventilator 08/27/19 14:52 64 16 24 08/27/19 12:00 24 08/27/19 12:00 97.7 63 18 132/72 (92) 100 08/27/19 12:00 Mechanical Ventilator 08/27/19 12:00 65 08/27/19 11:39 64 16 100 Mechanical Ventilator 24 64 17 24 Height (Feet): 6 Height (Inches): 7 Weight (Pounds): 167 HEENT: status post trach Respiratory/Chest: lungs clear Cardiovascular: normal rate, regular rhythm, no gallop/murmur Abdomen: soft, non tender, other - GT Extremities: other - + edema Laboratory Tests Test 08/27/19 11:44 08/27/19 16:33 08/27/19 23:54 08/28/19 05:56 POC Whole Blood Glucose 191 MG/DL (74-106) H 148 MG/DL (74-106) H Pending Pending Test 08/28/19 08:10 White Blood Count 14.4 K/UL (4.8-10.8) H Red Blood Count 3.46 M/UL (4.70-6.10) L Hemoglobin 9.3 G/DL (14.2-18.0) L Hematocrit 29.5 % (42.0-52.0) L Mean Corpuscular Volume 85 FL (80-99) Mean Corpuscular Hemoglobin 27.0 PG (27.0-31.0) Mean Corpuscular Hemoglobin Concent 31.6 G/DL (32.0-36.0) L Red Cell Distribution Width 16.3 % (11.6-14.8) H Platelet Count 511 K/UL (150-450) H Mean Platelet Volume 6.5 FL (6.5-10.1) Neutrophils (%) (Auto) 70.4 % (45.0-75.0) Lymphocytes (%) (Auto) 13.1 % (20.0-45.0) L Monocytes (%) (Auto) 8.9 % (1.0-10.0) Eosinophils (%) (Auto) 6.4 % (0.0-3.0) H Basophils (%) (Auto) 1.2 % (0.0-2.0) Sodium Level 139 MMOL/L (136-145) Potassium Level 2.5 MMOL/L (3.5-5.1) *L Chloride Level 102 MMOL/L (98-107) Carbon Dioxide Level 31 MMOL/L (21-32) Anion Gap 5 mmol/L (5-15) Blood Urea Nitrogen 68 mg/dL (7-18) H Creatinine 2.5 MG/DL (0.55-1.30) H Estimat Glomerular Filtration Rate 25.1 mL/min (>60) Glucose Level 163 MG/DL (74-106) H Calcium Level 9.1 MG/DL (8.5-10.1) Total Bilirubin 0.3 MG/DL (0.2-1.0) Aspartate Amino Transf (AST/SGOT) 46 U/L (15-37) H Alanine Aminotransferase (ALT/SGPT) 29 U/L (12-78) Alkaline Phosphatase 324 U/L (46-116) H Total Protein 7.5 G/DL (6.4-8.2) Albumin 1.3 G/DL (3.4-5.0) L Globulin 6.2 g/dL Albumin/Globulin Ratio 0.2 (1.0-2.7) L TB Test (T-Spot) Pending TB Test Nil Control (T-Spot) Pending TB Test Panel A (T-Spot) Pending TB Test Panel B (T-Spot) Pending TB Test Positive Control (T-Spot) Pending Current Medications Medications (Trade) Dose Ordered Sig/Leonel Route PRN Reason Start Time Stop Time Status Last Admin Dose Admin Acetaminophen (Tylenol) 650 mg Q4H PRN GT Mild Pain / fever 08/09/19 05:30 09/08/19 05:29 08/26/19 21:44 Al Hydroxide/Mg Hydroxide (Mylanta) 30 ml FOUR TIMES A DAY PRN GT constipation 08/09/19 06:00 09/08/19 05:29 Ascorbic Acid (Vitamin C) 500 mg DAILY GT 08/09/19 09:00 09/08/19 08:59 08/28/19 08:49 Atorvastatin Calcium (Lipitor) 40 mg BEDTIME GT 08/09/19 21:00 11/07/19 20:59 08/27/19 20:20 Cefepime HCl 1 gm/ Dextrose 55 ml @ 110 mls/hr Q24H IVPB 08/27/19 11:00 09/03/19 10:59 08/28/19 11:06 Chlorhexidine Gluconate (Felipa-Hex 2%) 1 applic DAILY@2000 TOPIC 08/15/19 20:00 11/13/19 19:59 08/27/19 20:20 Clonidine HCl (Catapres Tab) 0.1 mg Q4H PRN GT SBP>150 08/12/19 10:45 11/10/19 06:44 08/27/19 04:39 Colistimethate Sodium (Colistin *inhalation use only*) 75 mg Q12HRT INH 08/27/19 11:00 09/03/19 10:59 08/28/19 10:32 Dextrose (Dextrose 50%) 25 ml Q30M PRN IV Hypoglycemia 08/09/19 07:30 11/07/19 07:29 Dextrose (Dextrose 50%) 50 ml Q30M PRN IV Hypoglycemia 08/09/19 07:30 11/07/19 07:29 Epoetin Andreas (Epoetin Andreas(ESRD on dialysis)) 10,000 unit SUBQ 08/18/19 21:00 11/16/19 20:59 08/25/19 20:51 Insulin Aspart (NovoLOG) Q6HR SUBQ 08/10/19 00:00 11/07/19 11:29 08/27/19 23:58 Lansoprazole (Prevacid) 30 mg DAILY GT 08/09/19 09:00 09/08/19 08:59 08/28/19 08:49 Loperamide HCl (Imodium) 2 mg Q4H PRN GT Diarrhea 08/09/19 08:00 09/08/19 07:59 08/22/19 17:53 Metoprolol Tartrate (Lopressor) 200 mg Q12HR GT 08/09/19 09:00 11/07/19 08:59 08/28/19 08:49 Minoxidil (Loniten) 5 mg DAILY GT 08/09/19 09:00 11/07/19 08:59 08/28/19 08:48 Multivitamins (Multivitamins W/ Minerals 15ml Liquid) 15 ml DAILY GT 08/09/19 09:00 09/08/19 08:59 08/28/19 08:49 Potassium Chloride 100 ml @ 100 mls/hr Q1H IVPB 08/28/19 09:45 08/28/19 11:44 08/28/19 11:05 Vitamin B Complex/ Vit C/Folic Acid (Nephrovite) 1 tab DAILY GT 08/09/19 09:00 09/08/19 08:59 08/28/19 08:49 Vitamin D (Vitamin D) 1,000 intlu DAILY GT 08/09/19 09:00 09/08/19 08:59 08/28/19 08:50 Zinc Oxide (Zinc Oxide) 1 applic BID TOPIC 08/10/19 18:00 11/08/19 17:59 08/28/19 08:50 Farnaz Lyle MD Aug 28, 2019 11:26
[2019-08-28 12:00] VITALS: BP 135/57
--- NOTE | 2019-08-28 12:00 | NUR ---
NURSE NOTES: BS of 209 noted. Novolog administered per order. Will closely monitor the patient. Will continue plan of care.
--- NOTE | 2019-08-28 12:00 | NUR ---
NURSE NOTES: Vital signs stable at this time. Will closely monitor the patient. Will continue plan of care.
--- NOTE | 2019-08-28 12:27 | Hematology/Onc Progress Note ---
Assessment/Plan Assessment/Plan Assessment/recs # Leukocytosis - with multiple infections, VRE UTI --> wbc trend 33-->28-->25->23->22->23->24->17.3-->17-->14 --> on abx, linezolid and zosyn--> zosyn-->off --> + blood cultures with coag neg staph likely contaminated --> as per id recs --> has ordered a flow cytometry (with pathology) --> does show increased nK cell activity --> JOURDAN 2 and bcr-abl labs ordered (these are send outs) # Anemia due to chronic disease/kidney disease as well, gi bleed + occult + noted --> was on iron in the past, now on hold --> has been started on epogen --> as per renal care --> egd done and shows gastritis --> on ppi --> egd showed gastritis, colo recently done --> hgb 9-->8.7-->7.6-->9.2-->8.9-->9.2->9.3 # Respiratory failure --> per pulm, s/p trach --> COVID 19 test negative x 2 # Dysphagia s/p gtube with nepro --> per gi # ESRD with r fem julito --> hd as per renal # Dvt ppx scds Appreciate consultation and dw Rn Subjective Allergies: Coded Allergies: No Known Allergies (Unverified , 06/10/19) All Systems: reviewed and negative except above Subjective 08/15 meds noted, no bleeding, hgb 8.8, wbc 28, path flow pending 08/16 flow pending dw pathologist, results pending, wbc 25, hgb 9 08/17 labs reviewed, meds reviewed, meds noted, no night sweats 08/19 remains obtunded, on vent/trach, no bleeding wbc 21.7 08/20 labs have been reviewed, no bleeding, wbc still elev, path reviewed 08/21 labs are noted, no bleeding, on vent, wbc better 08/22 labs noted, no bleeding, meds reviewed, wbc 24 hgb 7.6 08/23 vent, off abx, c diff negative, h/h stable 08/24 labs reviewed, on abx, wbc 17, hgb 8.9, no hemolysis 08/26 reviewed flow and is negative for leukemia, matt rn 08/27 meds reviewed, no night sweats, matt rn, no major bleeding Objective Objective Current Medications Medications (Trade) Dose Ordered Sig/Leonel Route PRN Reason Start Time Stop Time Status Last Admin Dose Admin Acetaminophen (Tylenol) 650 mg Q4H PRN GT Mild Pain / fever 08/09/19 05:30 09/08/19 05:29 08/26/19 21:44 Al Hydroxide/Mg Hydroxide (Mylanta) 30 ml FOUR TIMES A DAY PRN GT constipation 08/09/19 06:00 09/08/19 05:29 Ascorbic Acid (Vitamin C) 500 mg DAILY GT 08/09/19 09:00 09/08/19 08:59 08/28/19 08:49 Atorvastatin Calcium (Lipitor) 40 mg BEDTIME GT 08/09/19 21:00 11/07/19 20:59 08/27/19 20:20 Cefepime HCl 1 gm/ Dextrose 55 ml @ 110 mls/hr Q24H IVPB 08/27/19 11:00 09/03/19 10:59 08/28/19 11:06 Chlorhexidine Gluconate (Felipa-Hex 2%) 1 applic DAILY@2000 TOPIC 08/15/19 20:00 11/13/19 19:59 08/27/19 20:20 Clonidine HCl (Catapres Tab) 0.1 mg Q4H PRN GT SBP>150 08/12/19 10:45 11/10/19 06:44 08/27/19 04:39 Colistimethate Sodium (Colistin *inhalation use only*) 75 mg Q12HRT INH 08/27/19 11:00 09/03/19 10:59 08/28/19 10:32 Dextrose (Dextrose 50%) 25 ml Q30M PRN IV Hypoglycemia 08/09/19 07:30 11/07/19 07:29 Dextrose (Dextrose 50%) 50 ml Q30M PRN IV Hypoglycemia 08/09/19 07:30 11/07/19 07:29 Epoetin Andreas (Epoetin Andreas(ESRD on dialysis)) 10,000 unit WED-WED-WED SUBQ 08/18/19 21:00 11/16/19 20:59 08/25/19 20:51 Insulin Aspart (NovoLOG) Q6HR SUBQ 08/10/19 00:00 11/07/19 11:29 08/28/19 12:03 Lansoprazole (Prevacid) 30 mg DAILY GT 08/09/19 09:00 09/08/19 08:59 08/28/19 08:49 Loperamide HCl (Imodium) 2 mg Q4H PRN GT Diarrhea 08/09/19 08:00 09/08/19 07:59 08/22/19 17:53 Metoprolol Tartrate (Lopressor) 200 mg Q12HR GT 08/09/19 09:00 11/07/19 08:59 08/28/19 08:49 Minoxidil (Loniten) 5 mg DAILY GT 08/09/19 09:00 11/07/19 08:59 08/28/19 08:48 Multivitamins (Multivitamins W/ Minerals 15ml Liquid) 15 ml DAILY GT 08/09/19 09:00 09/08/19 08:59 08/28/19 08:49 Vitamin B Complex/ Vit C/Folic Acid (Nephrovite) 1 tab DAILY GT 08/09/19 09:00 09/08/19 08:59 08/28/19 08:49 Vitamin D (Vitamin D) 1,000 intlu DAILY GT 08/09/19 09:00 09/08/19 08:59 08/28/19 08:50 Zinc Oxide (Zinc Oxide) 1 applic BID TOPIC 08/10/19 18:00 11/08/19 17:59 08/28/19 08:50 Last 24 Hour Vital Signs Date Time Temp Pulse Resp B/P (MAP) Pulse Ox O2 Delivery O2 Flow Rate FiO2 08/28/19 10:42 65 19 100 Mechanical Ventilator 24 65 19 24 08/28/19 08:49 68 147/50 08/28/19 08:48 147/50 08/28/19 08:00 98.3 69 18 142/69 (93) 100 08/28/19 08:00 24 08/28/19 08:00 68 08/28/19 08:00 Mechanical Ventilator 08/28/19 07:05 70 23 24 08/28/19 04:00 24 08/28/19 04:00 Mechanical Ventilator 08/28/19 04:00 98.4 73 17 145/76 (99) 100 08/28/19 03:27 72 08/28/19 03:09 66 21 24 08/28/19 00:00 99.2 72 17 146/62 (90) 100 08/28/19 00:00 Mechanical Ventilator 08/27/19 23:30 72 08/27/19 22:50 69 15 100 Mechanical Ventilator 24 60 15 24 08/27/19 20:21 71 140/56 08/27/19 20:00 99.1 72 18 110/50 (70) 100 08/27/19 20:00 72 08/27/19 20:00 24 08/27/19 20:00 Mechanical Ventilator 08/27/19 19:30 71 18 24 08/27/19 16:00 68 08/27/19 15:55 24 08/27/19 15:54 98.2 68 18 148/67 (94) 100 08/27/19 15:53 Mechanical Ventilator 08/27/19 14:52 64 16 24 08/27/19 12:00 24 08/27/19 12:00 97.7 63 18 132/72 (92) 100 08/27/19 12:00 Mechanical Ventilator 08/27/19 12:00 65 08/27/19 11:39 64 16 100 Mechanical Ventilator 24 64 17 24 08/27/19 08:08 66 151/67 08/27/19 08:07 151/67 08/27/19 08:00 24 08/27/19 08:00 63 08/27/19 08:00 Mechanical Ventilator 08/27/19 07:59 97.3 66 18 151/67 (95) 100 08/27/19 07:49 65 24 24 08/27/19 04:39 184/80 08/27/19 04:30 97.1 65 18 184/80 (114) 100 08/27/19 04:00 Mechanical Ventilator 08/27/19 04:00 24 08/27/19 04:00 66 08/27/19 02:49 78 19 24 08/27/19 00:00 Mechanical Ventilator 08/27/19 00:00 97.7 65 19 118/63 (81) 100 08/27/19 00:00 24 08/27/19 00:00 63 08/26/19 22:45 77 21 24 08/26/19 22:14 99.1 08/26/19 20:58 75 136/82 08/26/19 20:00 76 08/26/19 20:00 24 08/26/19 20:00 99.1 75 19 136/82 (100) 100 08/26/19 20:00 Mechanical Ventilator 08/26/19 19:39 83 25 24 08/26/19 16:00 Mechanical Ventilator 08/26/19 16:00 75 08/26/19 16:00 98.2 79 23 151/67 (95) 99 08/26/19 16:00 24 08/26/19 15:02 80 23 24 Intake and Output 08/27/19 08/28/19 19:00 07:00 Intake Total 795 ml 600 ml Output Total 200 ml 350 ml Balance 595 ml 250 ml Free Water 200 ml 60 ml IV Total 55 ml Tube Feeding 540 ml 540 ml Output Urine Total 200 ml 250 ml Stool Total 100 ml # Bowel Movements 100 Labs Test 08/25/19 23:06 08/26/19 05:06 08/26/19 11:47 08/26/19 12:15 POC Whole Blood Glucose 173 MG/DL (74-106) 168 MG/DL (74-106) White Blood Count 14.0 K/UL (4.8-10.8) Red Blood Count 3.41 M/UL (4.70-6.10) Hemoglobin 9.2 G/DL (14.2-18.0) Hematocrit 29.5 % (42.0-52.0) Mean Corpuscular Volume 87 FL (80-99) Mean Corpuscular Hemoglobin 26.9 PG (27.0-31.0) Mean Corpuscular Hemoglobin Concent 31.0 G/DL (32.0-36.0) Red Cell Distribution Width 16.6 % (11.6-14.8) Platelet Count 401 K/UL (150-450) Mean Platelet Volume 6.6 FL (6.5-10.1) Neutrophils (%) (Auto) 72.6 % (45.0-75.0) Lymphocytes (%) (Auto) 15.2 % (20.0-45.0) Monocytes (%) (Auto) 5.9 % (1.0-10.0) Eosinophils (%) (Auto) 5.2 % (0.0-3.0) Basophils (%) (Auto) 1.2 % (0.0-2.0) Sodium Level 141 MMOL/L (136-145) Potassium Level 3.7 MMOL/L (3.5-5.1) Chloride Level 105 MMOL/L (98-107) Carbon Dioxide Level 30 MMOL/L (21-32) Anion Gap 6 mmol/L (5-15) Blood Urea Nitrogen 48 mg/dL (7-18) Creatinine 1.8 MG/DL (0.55-1.30) Estimat Glomerular Filtration Rate 36.7 mL/min (>60) Glucose Level 165 MG/DL (74-106) Calcium Level 8.6 MG/DL (8.5-10.1) Pro-B-Type Natriuretic Peptide 5985 pg/mL (0-125) Test 08/26/19 16:42 08/27/19 11:44 08/27/19 16:33 08/27/19 23:54 POC Whole Blood Glucose 179 MG/DL (74-106) 191 MG/DL (74-106) 148 MG/DL (74-106) Test 08/28/19 05:56 08/28/19 08:10 08/28/19 11:59 White Blood Count 14.4 K/UL (4.8-10.8) Red Blood Count 3.46 M/UL (4.70-6.10) Hemoglobin 9.3 G/DL (14.2-18.0) Hematocrit 29.5 % (42.0-52.0) Mean Corpuscular Volume 85 FL (80-99) Mean Corpuscular Hemoglobin 27.0 PG (27.0-31.0) Mean Corpuscular Hemoglobin Concent 31.6 G/DL (32.0-36.0) Red Cell Distribution Width 16.3 % (11.6-14.8) Platelet Count 511 K/UL (150-450) Mean Platelet Volume 6.5 FL (6.5-10.1) Neutrophils (%) (Auto) 70.4 % (45.0-75.0) Lymphocytes (%) (Auto) 13.1 % (20.0-45.0) Monocytes (%) (Auto) 8.9 % (1.0-10.0) Eosinophils (%) (Auto) 6.4 % (0.0-3.0) Basophils (%) (Auto) 1.2 % (0.0-2.0) Sodium Level 139 MMOL/L (136-145) Potassium Level 2.5 MMOL/L (3.5-5.1) Chloride Level 102 MMOL/L (98-107) Carbon Dioxide Level 31 MMOL/L (21-32) Anion Gap 5 mmol/L (5-15) Blood Urea Nitrogen 68 mg/dL (7-18) Creatinine 2.5 MG/DL (0.55-1.30) Estimat Glomerular Filtration Rate 25.1 mL/min (>60) Glucose Level 163 MG/DL (74-106) Calcium Level 9.1 MG/DL (8.5-10.1) Total Bilirubin 0.3 MG/DL (0.2-1.0) Aspartate Amino Transf (AST/SGOT) 46 U/L (15-37) Alanine Aminotransferase (ALT/SGPT) 29 U/L (12-78) Alkaline Phosphatase 324 U/L (46-116) Total Protein 7.5 G/DL (6.4-8.2) Albumin 1.3 G/DL (3.4-5.0) Globulin 6.2 g/dL Albumin/Globulin Ratio 0.2 (1.0-2.7) POC Whole Blood Glucose 209 MG/DL (74-106) Height (Feet): 6 Height (Inches): 7 Weight (Pounds): 167 Objective Physical Exam General Appearance: nad, Chronically Ill Head: normocephalic Eyes: right eye PERRL - Will not open left eye ENT: moist mucus membranes Neck: other - submandibular mass R, fairly rigid with resistance to rotation to L, tracheotomy Respiratory: decreased breath sounds, crackles, other - pacemaker, vent+ Cardiovascular: regular rate, rhythm, edema - anasarca Gastrointestinal: non tender, distended, other - G tube Genitourinary: other Musculoskeletal: other - Contractures all extremities Neurologic: sensory intact, motor weakness, responsive Psychiatric: other Skin: Decubitus/Ulcer - Stage III right elbow, stage III left elbow, stage II sacrum, stage III scrotum, warm/dry Fitz Campos MD Aug 28, 2019 12:27
--- NOTE | 2019-08-28 13:46 | NUR ---
CASE MANAGEMENT: REVIEW SI: KLEBSIELLA, PSEUDOMONAS, PROVIDENCIA PNA . ESRD on HD T 98.1 HR 65 RR 18 BP 135/57 SAT 100% FIO2 24 WBC 14.4 H/H 9.3/29.5 K 2.5 BUN 68 CR 2.5 GLUCOSE 209 C-DIFF PENDING IS: CEFEPIME IV Q24HR COLISTIN INH Q12HR EPOETIN SUBQ QMWF HEPARIN IV PRN HD HD NEEDED PATIENT ADMITTED TO [facility]EP [facility] UN[facility] DCP: PATIENT IS FROM [facility]
--- NOTE | 2019-08-28 14:00 | NUR ---
NURSE NOTES: Notified Dr. Arndt again that radiology cannot do tunnel cath placement today. Per radiology, the patient is scheduled on this Wednesday. Made Dr. Arndt aware. Will continue plan of care.
--- NOTE | 2019-08-28 14:16 | Surgery Progress Note ---
Surgery Progress Note Subjective Procedure Performed Right femoral temporary hemodialysis catheter insertion Additional Comments ill appearing sputum micro ntoed multi organism wbc 14k no n/v/f/c Objective Last 24 Hour Vital Signs Date Time Temp Pulse Resp B/P (MAP) Pulse Ox O2 Delivery O2 Flow Rate FiO2 08/28/19 12:00 Mechanical Ventilator 08/28/19 12:00 98.1 67 18 135/57 (83) 100 08/28/19 12:00 66 08/28/19 12:00 24 08/28/19 10:42 65 19 100 Mechanical Ventilator 24 65 19 24 08/28/19 08:49 68 147/50 08/28/19 08:48 147/50 08/28/19 08:00 98.3 69 18 142/69 (93) 100 08/28/19 08:00 24 08/28/19 08:00 68 08/28/19 08:00 Mechanical Ventilator 08/28/19 07:05 70 23 24 08/28/19 04:00 24 08/28/19 04:00 Mechanical Ventilator 08/28/19 04:00 98.4 73 17 145/76 (99) 100 08/28/19 03:27 72 08/28/19 03:09 66 21 24 08/28/19 00:00 99.2 72 17 146/62 (90) 100 08/28/19 00:00 Mechanical Ventilator 08/27/19 23:30 72 08/27/19 22:50 69 15 100 Mechanical Ventilator 24 60 15 24 08/27/19 20:21 71 140/56 08/27/19 20:00 99.1 72 18 110/50 (70) 100 08/27/19 20:00 72 08/27/19 20:00 24 08/27/19 20:00 Mechanical Ventilator 08/27/19 19:30 71 18 24 08/27/19 16:00 68 08/27/19 15:55 24 08/27/19 15:54 98.2 68 18 148/67 (94) 100 08/27/19 15:53 Mechanical Ventilator 08/27/19 14:52 64 16 24 I&O Intake and Output 08/27/19 08/28/19 19:00 07:00 Intake Total 795 ml 600 ml Output Total 200 ml 350 ml Balance 595 ml 250 ml Free Water 200 ml 60 ml IV Total 55 ml Tube Feeding 540 ml 540 ml Output Urine Total 200 ml 250 ml Stool Total 100 ml # Bowel Movements 100 Laboratory Tests Test 08/27/19 16:33 08/27/19 23:54 08/28/19 05:56 08/28/19 08:10 POC Whole Blood Glucose 148 MG/DL (74-106) H Pending Pending White Blood Count 14.4 K/UL (4.8-10.8) H Red Blood Count 3.46 M/UL (4.70-6.10) L Hemoglobin 9.3 G/DL (14.2-18.0) L Hematocrit 29.5 % (42.0-52.0) L Mean Corpuscular Volume 85 FL (80-99) Mean Corpuscular Hemoglobin 27.0 PG (27.0-31.0) Mean Corpuscular Hemoglobin Concent 31.6 G/DL (32.0-36.0) L Red Cell Distribution Width 16.3 % (11.6-14.8) H Platelet Count 511 K/UL (150-450) H Mean Platelet Volume 6.5 FL (6.5-10.1) Neutrophils (%) (Auto) 70.4 % (45.0-75.0) Lymphocytes (%) (Auto) 13.1 % (20.0-45.0) L Monocytes (%) (Auto) 8.9 % (1.0-10.0) Eosinophils (%) (Auto) 6.4 % (0.0-3.0) H Basophils (%) (Auto) 1.2 % (0.0-2.0) Sodium Level 139 MMOL/L (136-145) Potassium Level 2.5 MMOL/L (3.5-5.1) *L Chloride Level 102 MMOL/L (98-107) Carbon Dioxide Level 31 MMOL/L (21-32) Anion Gap 5 mmol/L (5-15) Blood Urea Nitrogen 68 mg/dL (7-18) H Creatinine 2.5 MG/DL (0.55-1.30) H Estimat Glomerular Filtration Rate 25.1 mL/min (>60) Glucose Level 163 MG/DL (74-106) H Calcium Level 9.1 MG/DL (8.5-10.1) Total Bilirubin 0.3 MG/DL (0.2-1.0) Aspartate Amino Transf (AST/SGOT) 46 U/L (15-37) H Alanine Aminotransferase (ALT/SGPT) 29 U/L (12-78) Alkaline Phosphatase 324 U/L (46-116) H Total Protein 7.5 G/DL (6.4-8.2) Albumin 1.3 G/DL (3.4-5.0) L Globulin 6.2 g/dL Albumin/Globulin Ratio 0.2 (1.0-2.7) L TB Test (T-Spot) Pending TB Test Nil Control (T-Spot) Pending TB Test Panel A (T-Spot) Pending TB Test Panel B (T-Spot) Pending TB Test Positive Control (T-Spot) Pending Test 08/28/19 11:59 POC Whole Blood Glucose 209 MG/DL (74-106) H Plan Problems: (1) Anemia (2) Hyponatremia (3) Leukocytosis Assessment & Plan: Tracheostomy, left chest pacemaker are again demonstrated. There is bilateral interstitial and airspace disease and bilateral pleural fluid again demonstrated. This appears more severe than on the prior study. Bilateral interstitial and airspace infiltrates versus edema. Bilateral pleural effusions Leukocytosis, anemia, tachycardia, abnormal labs. Wound evaluated and likely etiology of patient's sepsis. Leukocytosis etiology work-up antibiotics per infectious disease Appreciate nephrology input transfuse with dialysis We will follow with recommendations thank you allowing participation's care plan HD access temp HD discussed with medical teams line okay HD as per renal persistent leukocytosis flow cyto noted (4) Ventilator dependent (5) Right lower lobe pneumonia (6) Hypokalemia (7) Hyperkalemia (8) Anasarca (9) Decubitus skin ulcer Assessment & Plan: pt presented on admission with generalized edemae.Skin assessed under tracheostomy and no areas of concerns noted. GT Insertion is marginally erythematous with small amt slough at stoma. Unstageable Pressure Injury R elbow. Base of wound is 100% yellow slough, Borders are erythematous. Wound oozing small amt haemopurulent exudate.Darker skin tone without elevation in skin temp or erythema periwound. Pt's penis and scrotum are grossly edematous and enlarged and weeping serous exudate from numerous sites both from penis and scrotum. Two small open wounds noted at base of at base of shaft of penis ,and contreras aspect of scrotum. Both wounds oozing large amt sanguineous and serosanguineous exudate. Multiple open wounds with Biofilm at base of each wounds noted to contreras/lateral,inferior and posterior aspects of scrotum. These wounds noted to be oozing moderate amts of serosanguineous exudate. Hypertrophic scar with scattered areas of hyperpigmentation noted to Sacrum. DTPI noted to L Buttocks (L)7cm x (W)9cm. Base of wound is purple and indurated.Darker skin tone without erythema, induration or fluctuance R and L ischial tuberosities. Both heels are boggy with non-blanchable erythema. Tx.Plan: Cleanse wound R elbow with Saline. Apply TheraHoney, Apply Moisture Barrier Paste periwound. Cover with Optifoam drsg.Change Daily and prn. Wash GT site with soap and water.Pat dry. Apply Zinc Oxide Paste to GT site Daily. Leave Open to Air. Apply Zinc Oxide Paste to entire Scrotum, Place ABD pads to R and L lateral, and posterior aspects of scrotum TWICE daily. Apply Cavilon Skin Barrier to malleoli and both Heels. Cover each site with Optifoam drsgs. Change every 7 days and prn. Reposition at least every 2hours or as tolerated. Off-load heels with Pillows. APM/BECCA Mattress overlay. (10) Malnutrition Assessment & Plan: DAILY ESTIMATED NEEDS: Needs based on Renal, critical care, wound/ 61kg 22-30 kcals/kg [id number] total kcals 1.25-2 g protein/kg 76-122 g total protein Fluid per MD, now on HD NUTRITION DIAGNOSIS: * Swallowing difficulty R/T respiratory failure, dysphagia as evidenced by trach/vent dep, PEG dep * Increased kcal/prot needs R/T wound healing as evidenced by admitted w/ multiple pressure injuries including full thickness wounds at junction of Shaft of penis, dorsal scrotum, R elbow, and DTPI @ L buttocks. CURRENT TF:Nepro @ 45ml/hr x 24 hrs ENTERAL NUTRITION RECOMMENDATIONS: NEPRO @ 40ml/hr x 24 hrs to provide 960ml, 1728kcal , 78g prot, 697ml free water * Decrease goal rate to 40ml/hr x 24hrs -> meets 100% est kcal/prot needs * HOB over 30 degrees/ water flush per MD WITH CONTINUED DIARRHEA AND CONSISTENTLY LOW LYTES, consider TF change to carb controlled, elemental TF Vital AF 1.2-> rec goal rate of 55ml/hr x 24 hrs to provide 1320ml, 1584kcal, 99g prot, 1070ml free water, 2228mg K and 1114mg phos ADDITIONAL RECOMMENDATIONS: * Per SNF: HT=63" GK=601 lbs (Vs EMR wt of 166lbs) -> obtain re-calibrated bedscale wt, rec daily wt monitoring * Wound healing: continue Nephrovite x 1 and Garo BID Vit C dosing per Nephro * Monitor renal fxn and lytes-> pt now on HD rec checking f/up phos (0.9* on 08/21) * Add probiotics to help alleviate diarrhea (11) Uremia (12) CKD (chronic kidney disease) stage 5, GFR less than 15 ml/min (13) Colon distention Assessment & Plan: discussed with GI likely functional as having lots of loose bm rectal tube kub f/u Marked distention of the sigmoid colon. 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 No evidence of bowel wall thickening or pneumatosis 12 mm focus of contrast enhancement in the right pectineus muscle. While nonspecific in appearance, appearance raises concern for a possible pseudoaneurysm. Ill- defined thickening of the pectus medius muscle could indicate some intramuscular hemorrhage. The above findings were phoned to Dr. Urias at the time of interpretation Large bilateral pleural effusions Hazy pulmonary parenchymal opacities as well as dense consolidative opacities most likely represent pulmonary edema, but could represent pneumonia Evidence of anasarca elsewhere, with generalized edema of the subcutaneous fat Bladder wall thickening, raises concern for cystitis. Avalos catheter in place Colonic diverticulosis. No evidence of diverticulitis. Tracheostomy Pacemaker Gastrostomy Jonathan Urias Aug 28, 2019 14:16
--- NOTE | 2019-08-28 15:38 | Nephrology Progress Note ---
Assessment/Plan Plan Sepsis - IV Abx Pre ESRD - HD now TTS. Urine output is minimal!!! Patient will remain on HD. Needs PermaCath. Ordered. Takes about a week to get it? Subjective Subjective Obtunded. Objective Objective Last 24 Hour Vital Signs Date Time Temp Pulse Resp B/P (MAP) Pulse Ox O2 Delivery O2 Flow Rate FiO2 08/28/19 12:00 Mechanical Ventilator 08/28/19 12:00 98.1 67 18 135/57 (83) 100 08/28/19 12:00 66 08/28/19 12:00 24 08/28/19 10:42 65 19 100 Mechanical Ventilator 24 65 19 24 08/28/19 08:49 68 147/50 08/28/19 08:48 147/50 08/28/19 08:00 98.3 69 18 142/69 (93) 100 08/28/19 08:00 24 08/28/19 08:00 68 08/28/19 08:00 Mechanical Ventilator 08/28/19 07:05 70 23 24 08/28/19 04:00 24 08/28/19 04:00 Mechanical Ventilator 08/28/19 04:00 98.4 73 17 145/76 (99) 100 08/28/19 03:27 72 08/28/19 03:09 66 21 24 08/28/19 00:00 99.2 72 17 146/62 (90) 100 08/28/19 00:00 Mechanical Ventilator 08/27/19 23:30 72 08/27/19 22:50 69 15 100 Mechanical Ventilator 24 60 15 24 08/27/19 20:21 71 140/56 08/27/19 20:00 99.1 72 18 110/50 (70) 100 08/27/19 20:00 72 08/27/19 20:00 24 08/27/19 20:00 Mechanical Ventilator 08/27/19 19:30 71 18 24 08/27/19 16:00 68 08/27/19 15:55 24 08/27/19 15:54 98.2 68 18 148/67 (94) 100 08/27/19 15:53 Mechanical Ventilator Intake and Output 08/27/19 08/28/19 19:00 07:00 Intake Total 795 ml 600 ml Output Total 200 ml 350 ml Balance 595 ml 250 ml Free Water 200 ml 60 ml IV Total 55 ml Tube Feeding 540 ml 540 ml Output Urine Total 200 ml 250 ml Stool Total 100 ml # Bowel Movements 100 Laboratory Tests 08/27/19 16:33: POC Whole Blood Glucose 148H 08/27/19 23:54: POC Whole Blood Glucose [Pending] 08/28/19 05:56: POC Whole Blood Glucose [Pending] 08/28/19 08:10: White Blood Count 14.4H, Red Blood Count 3.46L, Hemoglobin 9.3L, Hematocrit 29.5L, Mean Corpuscular Volume 85, Mean Corpuscular Hemoglobin 27.0, Mean Corpuscular Hemoglobin Concent 31.6L, Red Cell Distribution Width 16.3H, Platelet Count 511H, Mean Platelet Volume 6.5, Neutrophils (%) (Auto) 70.4, Lymphocytes (%) (Auto) 13.1L, Monocytes (%) (Auto) 8.9, Eosinophils (%) (Auto) 6.4H, Basophils (%) (Auto) 1.2, Sodium Level 139, Potassium Level 2.5*L, Chloride Level 102, Carbon Dioxide Level 31, Anion Gap 5, Blood Urea Nitrogen 68H, Creatinine 2.5H, Estimat Glomerular Filtration Rate 25.1, Glucose Level 163H, Calcium Level 9.1, Total Bilirubin 0.3, Aspartate Amino Transf (AST/SGOT) 46H, Alanine Aminotransferase (ALT/SGPT) 29, Alkaline Phosphatase 324H, Total Protein 7.5, Albumin 1.3L, Globulin 6.2, Albumin/Globulin Ratio 0.2L, TB Test (T -Spot) [Pending], TB Test Nil Control (T-Spot) [Pending], TB Test Panel A (T- Spot) [Pending], TB Test Panel B (T-Spot) [Pending], TB Test Positive Control (T -Spot) [Pending] 08/28/19 11:59: POC Whole Blood Glucose 209H Height (Feet): 6 Height (Inches): 7 Weight (Pounds): 167 Objective CV RR Trach clean Lungs CTA Abd SNT. BS + E No CCE Erica Pichardo MD Aug 28, 2019 15:38
--- NOTE | 2019-08-28 15:50 | NUR ---
NURSE NOTES: Called [facility] for HD schedule for 08/29/2019. Spoke with Cat @ [facility] and confirmed the schedule. Will closely monitor the patient. Will continue plan of care.
[2019-08-28 16:00] VITALS: BP 154/76
--- NOTE | 2019-08-28 16:00 | NUR ---
NURSE NOTES: The patient is stable without acute distress or shortness of breath. Tolerating vent setting well and TF well without residual. Bed bath given and tolerated well. Will closely monitor the patient. Will continue plan of care.
--- NOTE | 2019-08-28 18:00 | NUR ---
NURSE NOTES: 1800 medications administered per order. BS of 214 noted and Novolog covered per protocol. The patient is resting comfortably without acute distress or shortness of breath. Will continue plan of care.
--- NOTE | 2019-08-28 19:30 | NUR ---
HAND-OFF: Report given to TAMICA Worley. The patient is stable at this time. Endorsed plan of care.
--- NOTE | 2019-08-28 19:39 | NUR ---
NURSE NOTES: Received pt's report from TAMICA Yu. Pt is on bed and asleep. No s/s of respiratory distress noted. Pt is on vent, AC 15, Vt 450, FiO2 45%, PEEP 5. Spo2 99%, RR 22 at this moment. Pt is on G-tube, Nepro 1.8 at 45ml/hr is running. Pt is on rectal tube, and Avalos, clear yellow urine noted. R-Hand IV site clean and intact noted. Call-light within reach. Bed is low and locked. Will continue to monitor with plan of care.
[2019-08-28 20:00] VITALS: BP 142/53
[2019-08-28] MEDS: Atorvastatin 20mg tab GT SCH (20:51)
[2019-08-28] MEDS: Epoetin Alfa-EPBX(ESRD on dialysis)10,000 unit/ml vial SUBQ SCH (20:51)
[2019-08-28] MEDS: Dyna-Hex 2% Top Sol 2oz TOPIC SCH (20:51)
--- NOTE | 2019-08-28 21:32 | General Progress Note ---
Assessment/Plan Assessment/Plan: Assessment - sigmoid distention on CT - suspect functional - Anemia - leukocytosis - stool OB (+) - EGD --> gastritis, Colonoscopy --> not planned since done recently - Renal failure - Sepsis / leukocytosis - Anasarca - resp failure, trach - dysphagia, GT - encephalopathy, contracted - Diarrhea, C Diff (-) x 2 - poor px Recommendations - continue TF - Iron panel noted - PPI - abx - supportive care Subjective Allergies: Coded Allergies: No Known Allergies (Unverified , 06/10/19) Subjective Above noted no events overnight tolerating feeds d/w RN Objective Last 24 Hour Vital Signs Date Time Temp Pulse Resp B/P (MAP) Pulse Ox O2 Delivery O2 Flow Rate FiO2 08/28/19 20:52 74 133/50 08/28/19 19:30 73 18 24 08/28/19 16:00 Mechanical Ventilator 08/28/19 16:00 69 08/28/19 16:00 24 08/28/19 16:00 98.7 71 18 154/76 (102) 100 08/28/19 15:35 69 20 24 08/28/19 12:00 Mechanical Ventilator 08/28/19 12:00 98.1 67 18 135/57 (83) 100 08/28/19 12:00 66 08/28/19 12:00 24 08/28/19 10:42 65 19 100 Mechanical Ventilator 24 65 19 24 08/28/19 08:49 68 147/50 08/28/19 08:48 147/50 08/28/19 08:00 98.3 69 18 142/69 (93) 100 08/28/19 08:00 24 08/28/19 08:00 68 08/28/19 08:00 Mechanical Ventilator 08/28/19 07:05 70 23 24 08/28/19 04:00 24 08/28/19 04:00 Mechanical Ventilator 08/28/19 04:00 98.4 73 17 145/76 (99) 100 08/28/19 03:27 72 08/28/19 03:09 66 21 24 08/28/19 00:00 99.2 72 17 146/62 (90) 100 08/28/19 00:00 Mechanical Ventilator 08/27/19 23:30 72 08/27/19 22:50 69 15 100 Mechanical Ventilator 24 60 15 24 Intake and Output 08/27/19 08/28/19 19:00 07:00 Intake Total 795 ml 600 ml Output Total 200 ml 350 ml Balance 595 ml 250 ml Free Water 200 ml 60 ml IV Total 55 ml Tube Feeding 540 ml 540 ml Output Urine Total 200 ml 250 ml Stool Total 100 ml # Bowel Movements 100 Laboratory Tests 08/27/19 23:54: POC Whole Blood Glucose [Pending] 08/28/19 05:56: POC Whole Blood Glucose [Pending] 08/28/19 08:10: White Blood Count 14.4H, Red Blood Count 3.46L, Hemoglobin 9.3L, Hematocrit 29.5L, Mean Corpuscular Volume 85, Mean Corpuscular Hemoglobin 27.0, Mean Corpuscular Hemoglobin Concent 31.6L, Red Cell Distribution Width 16.3H, Platelet Count 511H, Mean Platelet Volume 6.5, Neutrophils (%) (Auto) 70.4, Lymphocytes (%) (Auto) 13.1L, Monocytes (%) (Auto) 8.9, Eosinophils (%) (Auto) 6.4H, Basophils (%) (Auto) 1.2, Sodium Level 139, Potassium Level 2.5*L, Chloride Level 102, Carbon Dioxide Level 31, Anion Gap 5, Blood Urea Nitrogen 68H, Creatinine 2.5H, Estimat Glomerular Filtration Rate 25.1, Glucose Level 163H, Calcium Level 9.1, Total Bilirubin 0.3, Aspartate Amino Transf (AST/SGOT) 46H, Alanine Aminotransferase (ALT/SGPT) 29, Alkaline Phosphatase 324H, Total Protein 7.5, Albumin 1.3L, Globulin 6.2, Albumin/Globulin Ratio 0.2L, TB Test (T -Spot) [Pending], TB Test Nil Control (T-Spot) [Pending], TB Test Panel A (T- Spot) [Pending], TB Test Panel B (T-Spot) [Pending], TB Test Positive Control (T -Spot) [Pending] 08/28/19 11:59: POC Whole Blood Glucose 209H 08/28/19 17:41: POC Whole Blood Glucose [Pending] Height (Feet): 6 Height (Inches): 7 Weight (Pounds): 167 Objective Debilitated AA man NCAT (+) trach coarse BS RR abd distended, anasarca, (+) GT ext (+) edema contracted Ronny Mustafa MD Aug 28, 2019 21:32
[2019-08-29] VITALS: BP 146/55
[2019-08-29 04:00] VITALS: BP 151/68
[2019-08-29 05:34] LABS: BASOPHILS % (AUTO) 0.8 % (0.0-2.0); EOSINOPHILS % (AUTO) 5.5 % (0.0-3.0); HEMOGLOBIN 8.8 G/DL (14.2-18.0); LYMPHOCYTES % (AUTO) 14.2 % (20.0-45.0); MEAN CORPUSCULAR VOLUME 84 FL (80-99); MONOCYTES % (AUTO) 8.1 % (1.0-10.0); NEUTROPHILS % (AUTO) 71.4 % (45.0-75.0); PLATELET COUNT 585 K/UL (150-450); RED BLOOD COUNT 3.31 M/UL (4.70-6.10); RED CELL DISTRIBUTION WIDTH 16.1 % (11.6-14.8); WHITE BLOOD COUNT 15.9 K/UL (4.8-10.8)
[2019-08-29] MEDS: NovoLOG Insulin Flexpen SUBQ SCH ×5 (05:48→23:59)
[2019-08-29] MEDS ORDERED: Heparin 1000 units/ml 1ml Vial INJ PRN (06:00)
[2019-08-29] MEDS ORDERED: Heparin Sod 1000 units/ml 10ml IV PRN (06:00)
[2019-08-29 06:03] LABS: ANION GAP 8 mmol/L (5-15); BLOOD UREA NITROGEN 80 mg/dL (7-18); CALCIUM 8.9 MG/DL (8.5-10.1); CARBON DIOXIDE 30 MMOL/L (21-32); CHLORIDE 100 MMOL/L (98-107); CREATININE 2.7 MG/DL (0.55-1.30); SODIUM 138 MMOL/L (136-145)
[2019-08-29 06:08] LABS: POTASSIUM 2.5 MMOL/L (3.5-5.1)
--- NOTE | 2019-08-29 06:48 | NUR ---
NURSE NOTES: Called Dr. Ramirez and left a message regarding Pt's low potassium level 2.5L. Awaiting for response.
--- NOTE | 2019-08-29 07:30 | NUR ---
NURSE NOTES: Received report from TAMICA Worley. The patient is resting on the bed without acute distress or shortness of breath. The patient is [facility]ed and on ventilator and communication made by facial expression and body movement. The patient is obtunded and opening eyes with painful tactile stimuli. V-paced withe spike with HR of 70s on the monitoring coordinator. [facility]ator on following setting and oxygen saturation is 99-100%: Portex 8, AC 15, TV 450, FiO2 24% PEEP 5. GT intact and patent and running Nephro @45mL/hr per order and no residual noted. Avalos and Rectal tube intact and patent and draining by gravity. R Femoral [place]o for HD access and dressing was changed on 08/26/2019. Skin issue noted and dressing intact. The patient's IV site changed from R hand 22G that is intact and patent. The patient's bed in the lowest position, call light in reach, and fall and aspiration precaution reinforced. Will follow up the order and lab. Will closely monitor the patient. Will continue plan of care.
--- NOTE | 2019-08-29 07:35 | NUR ---
HAND-OFF: Report given to TAMICA Yu.
--- NOTE | 2019-08-29 07:50 | NUR ---
NURSE NOTES: Notified Dr. Arndt and Dr. Ramirez regarding abnormal lab. Dr. Arndt ordered KCL 10mEq IVPB x3 total of 30mEq. Will administer as ordered. Will continue plan of care.
[2019-08-29 08:00] VITALS: BP 132/76
--- NOTE | 2019-08-29 08:00 | NUR ---
NURSE NOTES: Dr. Mustafa at the bedside assessed the patient. Notified Dr. Mustafa regarding clear white diarrhea. No new order at this time. Will continue plan of care.
--- NOTE | 2019-08-29 08:42 | General Progress Note ---
Assessment/Plan Assessment/Plan: IMPRESSION: 1. anemia. 2. GI bleed. 3. Leukocytosis. 4. Probable sepsis. + BCX 5. Acute on chronic renal failure. 6. Hyponatremia. 7. Severe protein-calorie malnutrition. 8. Significantly elevated C-reactive protein concerning for infectious etiology. 9. Tracheostomy, G-tube. 10. Ventilator dependence. 11. anasarca with bilateral pleural effusion 12. Hematuria PLAN needs placement care noted on vent surgical follow up monitor labs rate control monitor renal function: HD prognosis poor impression, plan, and exam edited and reviewed in detail care discussed with RN Subjective Allergies: Coded Allergies: No Known Allergies (Unverified , 06/10/19) Subjective remains ill on vent on HD Objective Last 24 Hour Vital Signs Date Time Temp Pulse Resp B/P (MAP) Pulse Ox O2 Delivery O2 Flow Rate FiO2 08/29/19 06:55 71 19 24 08/29/19 04:00 Mechanical Ventilator 08/29/19 04:00 98.6 72 24 151/68 (95) 99 08/29/19 04:00 72 08/29/19 04:00 24 08/29/19 03:30 72 20 24 08/29/19 00:00 98.5 69 20 146/55 (85) 100 08/29/19 00:00 24 08/29/19 00:00 Mechanical Ventilator 08/28/19 23:35 68 08/28/19 23:30 69 21 100 Mechanical Ventilator 24 70 22 24 08/28/19 20:52 74 133/50 08/28/19 20:00 98.7 73 21 142/53 (82) 98 08/28/19 20:00 72 08/28/19 20:00 24 08/28/19 20:00 Mechanical Ventilator 08/28/19 19:30 73 18 24 08/28/19 16:00 Mechanical Ventilator 08/28/19 16:00 69 08/28/19 16:00 24 08/28/19 16:00 98.7 71 18 154/76 (102) 100 08/28/19 15:35 69 20 24 08/28/19 12:00 Mechanical Ventilator 08/28/19 12:00 98.1 67 18 135/57 (83) 100 08/28/19 12:00 66 08/28/19 12:00 24 08/28/19 10:42 65 19 100 Mechanical Ventilator 24 65 19 24 08/28/19 08:49 68 147/50 08/28/19 08:48 147/50 Intake and Output 08/28/19 08/29/19 19:00 07:00 Intake Total 690 ml 590 ml Output Total 350 ml 230 ml Balance 340 ml 360 ml Free Water 150 ml 50 ml Tube Feeding 540 ml 540 ml Output Urine Total 250 ml 200 ml Stool Total 100 ml 30 ml Laboratory Tests 08/28/19 11:59: POC Whole Blood Glucose 209H 08/28/19 17:41: POC Whole Blood Glucose [Pending] 08/29/19 04:20: White Blood Count 15.9H, Red Blood Count 3.31L, Hemoglobin 8.8L, Hematocrit 28.0L, Mean Corpuscular Volume 84, Mean Corpuscular Hemoglobin 26.6L, Mean Corpuscular Hemoglobin Concent 31.5L, Red Cell Distribution Width 16.1H, Platelet Count 585H, Mean Platelet Volume 6.3L, Neutrophils (%) (Auto) 71.4, Lymphocytes (%) (Auto) 14.2L, Monocytes (%) (Auto) 8.1, Eosinophils (%) (Auto) 5.5H, Basophils (%) (Auto) 0.8, Sodium Level 138, Potassium Level 2.5*L, Chloride Level 100, Carbon Dioxide Level 30, Anion Gap 8, Blood Urea Nitrogen 80H, Creatinine 2.7H, Estimat Glomerular Filtration Rate 23.0, Glucose Level 167H, Calcium Level 8.9 Height (Feet): 6 Height (Inches): 7 Weight (Pounds): 167 Objective GENERAL: Ill-appearing male, chronically debilitated. HEENT: Tracheostomy in midline. Questionable fullness in the submandibular region. LUNGS: Coarse breath sounds. reduced breath sounds CARDIAC: S1, S2. Regular rate and rhythm. ABDOMEN: Soft. G-tube. EXTREMITIES: With noted edema. NEUROLOGICAL: Poorly responsive, weak diffusely. Kain Ramirez MD Aug 29, 2019 08:42
[2019-08-29] MEDS: Minoxidil 2.5mg tab GT SCH (08:54)
[2019-08-29] MEDS: Metoprolol Tartrate 100mg tab GT SCH ×2 (08:54→20:07)
[2019-08-29] MEDS: Nephrovite tab (Rena-Vite) GT SCH (08:55)
[2019-08-29] MEDS: Multivitamins W/Minerals 15 ML UDC GT SCH (08:55)
[2019-08-29] MEDS: Vitamin D 1000 IU Tab GT SCH (08:55)
[2019-08-29] MEDS: Ascorbic Acid 500mg tab GT SCH (08:55)
[2019-08-29] MEDS: Zinc Oxide Oint 2oz TOPIC SCH ×2 (08:56→17:12)
--- NOTE | 2019-08-29 09:04 | NUR ---
RD ASSESSMENT & RECOMMENDATIONS SEE CARE ACTIVITY FOR COMPLETE ASSESSMENT DAILY ESTIMATED NEEDS: Needs based on Renal, critical care, wound/ 61kg 22-30 kcals/kg [id number] total kcals 1.25-2 g protein/kg 76-122 g total protein Fluid per MD, now on HD NUTRITION DIAGNOSIS: * Swallowing difficulty R/T respiratory failure, dysphagia as evidenced by trach/vent dep, PEG dep * Increased kcal/prot needs R/T wound healing as evidenced by admitted w/ multiple pressure injuries including full thickness wounds at junction of Shaft of penis, dorsal scrotum, R elbow, and DTPI @ L buttocks. CURRENT TF:Nepro @ 45ml/hr x 24 hrs ENTERAL NUTRITION RECOMMENDATIONS: NEPRO @ 40ml/hr x 24 hrs to provide 960ml, 1728kcal , 78g prot, 697ml free water * Decrease goal rate to 40ml/hr x 24hrs -> meets 100% est kcal/prot needs * HOB over 30 degrees/ water flush per MD WITH CONTINUED DIARRHEA AND CONSISTENTLY LOW LYTES, consider TF change to carb controlled, elemental TF Vital AF 1.2-> rec goal rate of 55ml/hr x 24 hrs to provide 1320ml, 1584kcal, 99g prot, 1070ml free water, 2228mg K and 1114mg phos ------ ADDITIONAL RECOMMENDATIONS: * Per SNF: HT=63" RW=417 lbs (vs EMR wt of 166lbs) -> obtain re-calibrated bedscale wt, rec daily wt monitoring * Wound healing: continue Nephrovite x 1 and Garo BID Vit C dosing per Nephro * Monitor renal fxn and lytes-> pt now on HD rec checking f/up phos (0.9* on 08/21) * Add probiotics to help alleviate diarrhea
[2019-08-29] MEDS: Colistin for inhalation INH SCH ×2 (09:10→23:21)
--- NOTE | 2019-08-29 09:27 | NUR ---
*-* INSURANCE *-* UPDATED CLINICALS AND REVIEWS HAVE BEEN FAXED TO: EL[facility] ([employer]) REF# [id number] RIC:HARPER P:[phone] F:[phone]
--- NOTE | 2019-08-29 10:00 | NUR ---
NURSE NOTES: Administered medications as ordered. Held blood pressure medication as the patient is planning to have HD today. Will continue plan of care.
[2019-08-29] MEDS: Cefepime HCl 0.5 GM in NS 55 ML IVPB SCH (10:11)
--- NOTE | 2019-08-29 11:00 | NUR ---
NURSE NOTES: HD started by KOBE Orellana RN per Dr. Pichardo's order. The patient is on stable condition at this time. Will continue plan of care.
--- NOTE | 2019-08-29 11:09 | Infectious Diseases Prog Note ---
Assessment/Plan Assessment/Plan antibiotics : cefepime, inhaled colsitin 7..20 - A 1. VRE UTI s/p rx 2. + blood cultures with coag neg staph likely contaminated 3. respiratory failure 4. leucocytosis 5. klebsiella, pseudomonas, providencia pneumonia COVID 19 test negative x 2 6. renal failure on HD P 1. continue cefepime, inhaled colistin 4 more days 2. will follow up cultures Subjective ROS Limited/Unobtainable: Yes Allergies: Coded Allergies: No Known Allergies (Unverified , 06/10/19) Objective Last 24 Hour Vital Signs Date Time Temp Pulse Resp B/P (MAP) Pulse Ox O2 Delivery O2 Flow Rate FiO2 08/29/19 09:21 72 08/29/19 09:06 72 18 100 Mechanical Ventilator 24 72 20 24 08/29/19 08:54 72 136/58 08/29/19 08:54 136/58 08/29/19 06:55 71 19 24 08/29/19 04:00 Mechanical Ventilator 08/29/19 04:00 98.6 72 24 151/68 (95) 99 08/29/19 04:00 72 08/29/19 04:00 24 08/29/19 03:30 72 20 24 08/29/19 00:00 98.5 69 20 146/55 (85) 100 08/29/19 00:00 24 08/29/19 00:00 Mechanical Ventilator 08/28/19 23:35 68 08/28/19 23:30 69 21 100 Mechanical Ventilator 24 70 22 24 08/28/19 20:52 74 133/50 08/28/19 20:00 98.7 73 21 142/53 (82) 98 08/28/19 20:00 72 08/28/19 20:00 24 08/28/19 20:00 Mechanical Ventilator 08/28/19 19:30 73 18 24 08/28/19 16:00 Mechanical Ventilator 08/28/19 16:00 69 08/28/19 16:00 24 08/28/19 16:00 98.7 71 18 154/76 (102) 100 08/28/19 15:35 69 20 24 08/28/19 12:00 Mechanical Ventilator 08/28/19 12:00 98.1 67 18 135/57 (83) 100 08/28/19 12:00 66 08/28/19 12:00 24 Height (Feet): 6 Height (Inches): 7 Weight (Pounds): 167 HEENT: status post trach Respiratory/Chest: lungs clear Cardiovascular: normal rate, regular rhythm, no gallop/murmur Abdomen: soft, non tender, other - GT Extremities: other - + edema Microbiology Date/Time Source Procedure Growth Status 08/29/19 03:00 Stool Clostridium difficile Toxin Assay - Final Complete Laboratory Tests Test 08/28/19 11:59 08/28/19 17:41 08/29/19 04:20 POC Whole Blood Glucose 209 MG/DL (74-106) H Pending White Blood Count 15.9 K/UL (4.8-10.8) H Red Blood Count 3.31 M/UL (4.70-6.10) L Hemoglobin 8.8 G/DL (14.2-18.0) L Hematocrit 28.0 % (42.0-52.0) L Mean Corpuscular Volume 84 FL (80-99) Mean Corpuscular Hemoglobin 26.6 PG (27.0-31.0) L Mean Corpuscular Hemoglobin Concent 31.5 G/DL (32.0-36.0) L Red Cell Distribution Width 16.1 % (11.6-14.8) H Platelet Count 585 K/UL (150-450) H Mean Platelet Volume 6.3 FL (6.5-10.1) L Neutrophils (%) (Auto) 71.4 % (45.0-75.0) Lymphocytes (%) (Auto) 14.2 % (20.0-45.0) L Monocytes (%) (Auto) 8.1 % (1.0-10.0) Eosinophils (%) (Auto) 5.5 % (0.0-3.0) H Basophils (%) (Auto) 0.8 % (0.0-2.0) Sodium Level 138 MMOL/L (136-145) Potassium Level 2.5 MMOL/L (3.5-5.1) *L Chloride Level 100 MMOL/L (98-107) Carbon Dioxide Level 30 MMOL/L (21-32) Anion Gap 8 mmol/L (5-15) Blood Urea Nitrogen 80 mg/dL (7-18) H Creatinine 2.7 MG/DL (0.55-1.30) H Estimat Glomerular Filtration Rate 23.0 mL/min (>60) Glucose Level 167 MG/DL (74-106) H Calcium Level 8.9 MG/DL (8.5-10.1) Current Medications Medications (Trade) Dose Ordered Sig/Leonel Route PRN Reason Start Time Stop Time Status Last Admin Dose Admin Acetaminophen (Tylenol) 650 mg Q4H PRN GT Mild Pain / fever 08/09/19 05:30 09/08/19 05:29 08/26/19 21:44 Al Hydroxide/Mg Hydroxide (Mylanta) 30 ml FOUR TIMES A DAY PRN GT constipation 08/09/19 06:00 09/08/19 05:29 Ascorbic Acid (Vitamin C) 500 mg DAILY GT 08/09/19 09:00 09/08/19 08:59 08/29/19 08:55 Atorvastatin Calcium (Lipitor) 40 mg BEDTIME GT 08/09/19 21:00 11/07/19 20:59 08/28/19 20:51 Cefepime HCl 0.5 gm/Sodium Chloride 55 ml @ 110 mls/hr Q24H IVPB 08/29/19 11:00 09/03/19 10:59 08/29/19 10:11 Chlorhexidine Gluconate (Felipa-Hex 2%) 1 applic DAILY@2000 TOPIC 08/15/19 20:00 11/13/19 19:59 08/28/19 20:51 Clonidine HCl (Catapres Tab) 0.1 mg Q4H PRN GT SBP>150 08/12/19 10:45 11/10/19 06:44 08/27/19 04:39 Colistimethate Sodium (Colistin *inhalation use only*) 75 mg Q12HRT INH 08/27/19 11:00 09/03/19 10:59 08/29/19 09:10 Dextrose (Dextrose 50%) 25 ml Q30M PRN IV Hypoglycemia 08/09/19 07:30 11/07/19 07:29 Dextrose (Dextrose 50%) 50 ml Q30M PRN IV Hypoglycemia 08/09/19 07:30 11/07/19 07:29 Epoetin Andreas (Epoetin Andreas(ESRD on dialysis)) 10,000 unit WED-WED-WED SUBQ 08/18/19 21:00 11/16/19 20:59 08/28/19 20:51 Heparin Sodium (Porcine) (Heparin Sod 1000 units/ml 10ml) 500 unit ONCE PRN IV HD USE 08/29/19 06:00 08/29/19 23:59 Heparin Sodium (Porcine) (Heparin) 1,000 unit POSTHD PRN INJ FOR HD USE 08/29/19 06:00 08/29/19 23:59 Insulin Aspart (NovoLOG) Q6HR SUBQ 08/10/19 00:00 11/07/19 11:29 08/29/19 05:48 Lansoprazole (Prevacid) 30 mg DAILY GT 08/09/19 09:00 09/08/19 08:59 08/29/19 08:55 Loperamide HCl (Imodium) 2 mg Q4H PRN GT Diarrhea 08/09/19 08:00 09/08/19 07:59 08/29/19 08:56 Metoprolol Tartrate (Lopressor) 200 mg Q12HR GT 08/09/19 09:00 11/07/19 08:59 08/28/19 20:52 Minoxidil (Loniten) 5 mg DAILY GT 08/09/19 09:00 11/07/19 08:59 08/28/19 08:48 Multivitamins (Multivitamins W/ Minerals 15ml Liquid) 15 ml DAILY GT 08/09/19 09:00 09/08/19 08:59 08/29/19 08:55 Potassium Chloride 100 ml @ 100 mls/hr Q1HR IVPB 08/29/19 09:00 08/29/19 11:59 08/29/19 10:10 Sodium Chloride 1,000 ml @ 500 mls/hr Q2H PRN IVLG sbp<90 during hd 08/29/19 06:00 08/29/19 23:59 Vitamin B Complex/ Vit C/Folic Acid (Nephrovite) 1 tab DAILY GT 08/09/19 09:00 09/08/19 08:59 08/29/19 08:55 Vitamin D (Vitamin D) 1,000 intlu DAILY GT 08/09/19 09:00 09/08/19 08:59 08/29/19 08:55 Zinc Oxide (Zinc Oxide) 1 applic BID TOPIC 08/10/19 18:00 11/08/19 17:59 08/29/19 08:56 Farnaz Lyle MD Aug 29, 2019 11:09
--- NOTE | 2019-08-29 11:28 | Hematology/Onc Progress Note ---
Assessment/Plan Assessment/Plan Assessment/recs # Leukocytosis - with multiple infections, VRE UTI, flow is negative --> wbc trend 33-->28-->25->23->22->23->24->17.3-->17-->14->16 --> on abx, linezolid and zosyn--> zosyn-->off --> + blood cultures with coag neg staph likely contaminated --> as per id recs --> has ordered a flow cytometry (with pathology) --> does show increased nK cell activity --> JOURDAN 2 and bcr-abl labs ordered (these are send outs) --> plt 585 # Anemia due to chronic disease/kidney disease as well, gi bleed + occult + noted --> was on iron in the past, now on hold --> has been started on epogen --> as per renal care --> egd done and shows gastritis --> on ppi --> egd showed gastritis, colo recently done --> hgb 9-->8.7-->7.6-->9.2-->8.9-->9.2->9.3-->8.8 # Respiratory failure --> per pulm, s/p trach --> COVID 19 test negative x 2 # Dysphagia s/p gtube with nepro --> per gi # ESRD with r fem julito --> hd as per renal # Dvt ppx scds Appreciate consultation and dw Rn Subjective Constitutional: Denies: no symptoms, chills, fever, malaise, weakness, other Cardiovascular: Denies: no symptoms, chest pain, edema, irregular heart rate, lightheadedness, palpitations, syncope, other Respiratory: Denies: no symptoms, cough, shortness of breath, SOB with excertion, SOB at rest, sputum, wheezing, other Gastrointestinal/Abdominal: Denies: no symptoms, abdomen distended, abdominal pain, black stools, tarry stools, blood in stool, constipated, diarrhea, difficulty swallowing, nausea, poor appetite, poor fluid intake, rectal bleeding , vomiting, other Genitourinary: Denies: no symptoms, burning, discharge, frequency, flank pain, hematuria, incontinence, pain, urgency, other Neurologic/Psychiatric: Denies: no symptoms, anxiety, depressed, emotional problems, headache, numbness, paresthesia, pre-existing deficit, seizure, tingling, tremors, weakness, other Endocrine: Denies: no symptoms, excessive sweating, flushing, intolerance to cold, intolerance to heat, increased hunger, increased thirst, increased urine, unexplained weight gain, unexplained weight loss, other Allergies: Coded Allergies: No Known Allergies (Unverified , 06/10/19) Subjective 08/15 meds noted, no bleeding, hgb 8.8, wbc 28, path flow pending 08/16 flow pending dw pathologist, results pending, wbc 25, hgb 9 08/17 labs reviewed, meds reviewed, meds noted, no night sweats 08/19 remains obtunded, on vent/trach, no bleeding wbc 21.7 08/20 labs have been reviewed, no bleeding, wbc still elev, path reviewed 08/21 labs are noted, no bleeding, on vent, wbc better 08/22 labs noted, no bleeding, meds reviewed, wbc 24 hgb 7.6 08/23 vent, off abx, c diff negative, h/h stable 08/24 labs reviewed, on abx, wbc 17, hgb 8.9, no hemolysis 08/26 reviewed flow and is negative for leukemia, matt rn 08/27 meds reviewed, no night sweats, matt rn, no major bleeding Objective Objective Current Medications Medications (Trade) Dose Ordered Sig/Leonel Route PRN Reason Start Time Stop Time Status Last Admin Dose Admin Acetaminophen (Tylenol) 650 mg Q4H PRN GT Mild Pain / fever 08/09/19 05:30 09/08/19 05:29 08/26/19 21:44 Al Hydroxide/Mg Hydroxide (Mylanta) 30 ml FOUR TIMES A DAY PRN GT constipation 08/09/19 06:00 09/08/19 05:29 Ascorbic Acid (Vitamin C) 500 mg DAILY GT 08/09/19 09:00 09/08/19 08:59 08/29/19 08:55 Atorvastatin Calcium (Lipitor) 40 mg BEDTIME GT 08/09/19 21:00 11/07/19 20:59 08/28/19 20:51 Cefepime HCl 0.5 gm/Sodium Chloride 55 ml @ 110 mls/hr Q24H IVPB 08/29/19 11:00 09/03/19 10:59 08/29/19 10:11 Chlorhexidine Gluconate (Felipa-Hex 2%) 1 applic DAILY@2000 TOPIC 08/15/19 20:00 11/13/19 19:59 08/28/19 20:51 Clonidine HCl (Catapres Tab) 0.1 mg Q4H PRN GT SBP>150 08/12/19 10:45 11/10/19 06:44 08/27/19 04:39 Colistimethate Sodium (Colistin *inhalation use only*) 75 mg Q12HRT INH 08/27/19 11:00 09/03/19 10:59 08/29/19 09:10 Dextrose (Dextrose 50%) 25 ml Q30M PRN IV Hypoglycemia 08/09/19 07:30 11/07/19 07:29 Dextrose (Dextrose 50%) 50 ml Q30M PRN IV Hypoglycemia 08/09/19 07:30 11/07/19 07:29 Epoetin Andreas (Epoetin Andreas(ESRD on dialysis)) 10,000 unit WED-WED-WED SUBQ 08/18/19 21:00 11/16/19 20:59 08/28/19 20:51 Heparin Sodium (Porcine) (Heparin Sod 1000 units/ml 10ml) 500 unit ONCE PRN IV HD USE 08/29/19 06:00 08/29/19 23:59 Heparin Sodium (Porcine) (Heparin) 1,000 unit POSTHD PRN INJ FOR HD USE 08/29/19 06:00 08/29/19 23:59 Insulin Aspart (NovoLOG) Q6HR SUBQ 08/10/19 00:00 11/07/19 11:29 08/29/19 05:48 Lansoprazole (Prevacid) 30 mg DAILY GT 08/09/19 09:00 09/08/19 08:59 08/29/19 08:55 Loperamide HCl (Imodium) 2 mg Q4H PRN GT Diarrhea 08/09/19 08:00 09/08/19 07:59 08/29/19 08:56 Metoprolol Tartrate (Lopressor) 200 mg Q12HR GT 08/09/19 09:00 11/07/19 08:59 08/28/19 20:52 Minoxidil (Loniten) 5 mg DAILY GT 08/09/19 09:00 11/07/19 08:59 08/28/19 08:48 Multivitamins (Multivitamins W/ Minerals 15ml Liquid) 15 ml DAILY GT 08/09/19 09:00 09/08/19 08:59 08/29/19 08:55 Potassium Chloride 100 ml @ 100 mls/hr Q1HR IVPB 08/29/19 09:00 08/29/19 11:59 08/29/19 11:22 Sodium Chloride 1,000 ml @ 500 mls/hr Q2H PRN IVLG sbp<90 during hd 08/29/19 06:00 08/29/19 23:59 Vitamin B Complex/ Vit C/Folic Acid (Nephrovite) 1 tab DAILY GT 08/09/19 09:00 09/08/19 08:59 08/29/19 08:55 Vitamin D (Vitamin D) 1,000 intlu DAILY GT 08/09/19 09:00 09/08/19 08:59 08/29/19 08:55 Zinc Oxide (Zinc Oxide) 1 applic BID TOPIC 08/10/19 18:00 11/08/19 17:59 08/29/19 08:56 Last 24 Hour Vital Signs Date Time Temp Pulse Resp B/P (MAP) Pulse Ox O2 Delivery O2 Flow Rate FiO2 08/29/19 11:08 83 22 24 08/29/19 09:21 72 08/29/19 09:06 72 18 100 Mechanical Ventilator 24 72 20 24 08/29/19 08:54 72 136/58 08/29/19 08:54 136/58 08/29/19 06:55 71 19 24 08/29/19 04:00 Mechanical Ventilator 08/29/19 04:00 98.6 72 24 151/68 (95) 99 08/29/19 04:00 72 08/29/19 04:00 24 08/29/19 03:30 72 20 24 08/29/19 00:00 98.5 69 20 146/55 (85) 100 08/29/19 00:00 24 08/29/19 00:00 Mechanical Ventilator 08/28/19 23:35 68 08/28/19 23:30 69 21 100 Mechanical Ventilator 24 70 22 24 08/28/19 20:52 74 133/50 7/20/20 20:00 98.7 73 21 142/53 (82) 98 7/20/20 20:00 72 72020 20:00 24 72020 20:00 Mechanical Ventilator 720 19:30 73 18 24 72020 16:00 Mechanical Ventilator 720 16:00 69 7/20/20 16:00 24 72020 16:00 98.7 71 18 154/76 (102) 100 20 15:35 69 20 24 720 12:00 Mechanical Ventilator 08/28/19 12:00 98.1 67 18 135/57 (83) 100 08/28/19 12:00 66 7 12:00 24 7 10:42 65 19 100 Mechanical Ventilator 24 65 19 24 7 08:49 68 147/50 7 08:48 147/50 7 08:00 98.3 69 18 142/69 (93) 100 08/28/19 08:00 24 7 08:00 68 7 08:00 Mechanical Ventilator 08/28/19 07:05 70 23 24 720 04:00 24 7 04:00 Mechanical Ventilator 08/28/19 04:00 98.4 73 17 145/76 (99) 100 20 03:27 72 72020 03:09 66 21 24 72020 00:00 99.2 72 17 146/62 (90) 100 2020 00:00 Mechanical Ventilator 20 23:30 72 719/20 22:50 69 15 100 Mechanical Ventilator 24 60 15 24 7/20 20:21 71 140/56 719/20 20:00 99.1 72 18 110/50 (70) 100 71920 20:00 72 71920 20:00 24 720 20:00 Mechanical Ventilator 720 19:30 71 18 24 719/20 16:00 68 719/20 15:55 24 720 15:54 98.2 68 18 148/67 (94) 100 20 15:53 Mechanical Ventilator 7/19/20 14:52 64 16 24 08/27/19 12:00 24 08/27/19 12:00 97.7 63 18 132/72 (92) 100 08/27/19 12:00 Mechanical Ventilator 08/27/19 12:00 65 08/27/19 11:39 64 16 100 Mechanical Ventilator 24 64 17 24 Intake and Output 08/28/19 08/29/19 19:00 07:00 Intake Total 690 ml 590 ml Output Total 350 ml 230 ml Balance 340 ml 360 ml Free Water 150 ml 50 ml Tube Feeding 540 ml 540 ml Output Urine Total 250 ml 200 ml Stool Total 100 ml 30 ml Labs Test 08/26/19 11:47 08/26/19 12:15 08/26/19 16:42 08/27/19 11:44 POC Whole Blood Glucose 168 MG/DL (74-106) 179 MG/DL (74-106) 191 MG/DL (74-106) White Blood Count 14.0 K/UL (4.8-10.8) Red Blood Count 3.41 M/UL (4.70-6.10) Hemoglobin 9.2 G/DL (14.2-18.0) Hematocrit 29.5 % (42.0-52.0) Mean Corpuscular Volume 87 FL (80-99) Mean Corpuscular Hemoglobin 26.9 PG (27.0-31.0) Mean Corpuscular Hemoglobin Concent 31.0 G/DL (32.0-36.0) Red Cell Distribution Width 16.6 % (11.6-14.8) Platelet Count 401 K/UL (150-450) Mean Platelet Volume 6.6 FL (6.5-10.1) Neutrophils (%) (Auto) 72.6 % (45.0-75.0) Lymphocytes (%) (Auto) 15.2 % (20.0-45.0) Monocytes (%) (Auto) 5.9 % (1.0-10.0) Eosinophils (%) (Auto) 5.2 % (0.0-3.0) Basophils (%) (Auto) 1.2 % (0.0-2.0) Sodium Level 141 MMOL/L (136-145) Potassium Level 3.7 MMOL/L (3.5-5.1) Chloride Level 105 MMOL/L (98-107) Carbon Dioxide Level 30 MMOL/L (21-32) Anion Gap 6 mmol/L (5-15) Blood Urea Nitrogen 48 mg/dL (7-18) Creatinine 1.8 MG/DL (0.55-1.30) Estimat Glomerular Filtration Rate 36.7 mL/min (>60) Glucose Level 165 MG/DL (74-106) Calcium Level 8.6 MG/DL (8.5-10.1) Pro-B-Type Natriuretic Peptide 5985 pg/mL (0-125) Test 08/27/19 16:33 08/27/19 23:54 08/28/19 05:56 08/28/19 08:10 POC Whole Blood Glucose 148 MG/DL (74-106) White Blood Count 14.4 K/UL (4.8-10.8) Red Blood Count 3.46 M/UL (4.70-6.10) Hemoglobin 9.3 G/DL (14.2-18.0) Hematocrit 29.5 % (42.0-52.0) Mean Corpuscular Volume 85 FL (80-99) Mean Corpuscular Hemoglobin 27.0 PG (27.0-31.0) Mean Corpuscular Hemoglobin Concent 31.6 G/DL (32.0-36.0) Red Cell Distribution Width 16.3 % (11.6-14.8) Platelet Count 511 K/UL (150-450) Mean Platelet Volume 6.5 FL (6.5-10.1) Neutrophils (%) (Auto) 70.4 % (45.0-75.0) Lymphocytes (%) (Auto) 13.1 % (20.0-45.0) Monocytes (%) (Auto) 8.9 % (1.0-10.0) Eosinophils (%) (Auto) 6.4 % (0.0-3.0) Basophils (%) (Auto) 1.2 % (0.0-2.0) Sodium Level 139 MMOL/L (136-145) Potassium Level 2.5 MMOL/L (3.5-5.1) Chloride Level 102 MMOL/L (98-107) Carbon Dioxide Level 31 MMOL/L (21-32) Anion Gap 5 mmol/L (5-15) Blood Urea Nitrogen 68 mg/dL (7-18) Creatinine 2.5 MG/DL (0.55-1.30) Estimat Glomerular Filtration Rate 25.1 mL/min (>60) Glucose Level 163 MG/DL (74-106) Calcium Level 9.1 MG/DL (8.5-10.1) Total Bilirubin 0.3 MG/DL (0.2-1.0) Aspartate Amino Transf (AST/SGOT) 46 U/L (15-37) Alanine Aminotransferase (ALT/SGPT) 29 U/L (12-78) Alkaline Phosphatase 324 U/L (46-116) Total Protein 7.5 G/DL (6.4-8.2) Albumin 1.3 G/DL (3.4-5.0) Globulin 6.2 g/dL Albumin/Globulin Ratio 0.2 (1.0-2.7) Test 08/28/19 11:59 08/28/19 17:41 08/29/19 04:20 POC Whole Blood Glucose 209 MG/DL (74-106) White Blood Count 15.9 K/UL (4.8-10.8) Red Blood Count 3.31 M/UL (4.70-6.10) Hemoglobin 8.8 G/DL (14.2-18.0) Hematocrit 28.0 % (42.0-52.0) Mean Corpuscular Volume 84 FL (80-99) Mean Corpuscular Hemoglobin 26.6 PG (27.0-31.0) Mean Corpuscular Hemoglobin Concent 31.5 G/DL (32.0-36.0) Red Cell Distribution Width 16.1 % (11.6-14.8) Platelet Count 585 K/UL (150-450) Mean Platelet Volume 6.3 FL (6.5-10.1) Neutrophils (%) (Auto) 71.4 % (45.0-75.0) Lymphocytes (%) (Auto) 14.2 % (20.0-45.0) Monocytes (%) (Auto) 8.1 % (1.0-10.0) Eosinophils (%) (Auto) 5.5 % (0.0-3.0) Basophils (%) (Auto) 0.8 % (0.0-2.0) Sodium Level 138 MMOL/L (136-145) Potassium Level 2.5 MMOL/L (3.5-5.1) Chloride Level 100 MMOL/L (98-107) Carbon Dioxide Level 30 MMOL/L (21-32) Anion Gap 8 mmol/L (5-15) Blood Urea Nitrogen 80 mg/dL (7-18) Creatinine 2.7 MG/DL (0.55-1.30) Estimat Glomerular Filtration Rate 23.0 mL/min (>60) Glucose Level 167 MG/DL (74-106) Calcium Level 8.9 MG/DL (8.5-10.1) Micro Microbiology Date/Time Source Procedure Growth Status 08/29/19 03:00 Stool Clostridium difficile Toxin Assay - Final Complete Height (Feet): 6 Height (Inches): 7 Weight (Pounds): 167 Objective Physical Exam General Appearance: nad, Chronically Ill Head: normocephalic Eyes: right eye PERRL - Will not open left eye ENT: moist mucus membranes Neck: other - submandibular mass R, fairly rigid with resistance to rotation to L, tracheotomy Respiratory: decreased breath sounds, crackles, other - pacemaker, vent+ Cardiovascular: regular rate, rhythm, edema - anasarca Gastrointestinal: non tender, distended, other - G tube Genitourinary: other Musculoskeletal: other - Contractures all extremities Neurologic: sensory intact, motor weakness, responsive Psychiatric: other Skin: Decubitus/Ulcer - Stage III right elbow, stage III left elbow, stage II sacrum, stage III scrotum, warm/dry Fitz Campos MD Aug 29, 2019 11:28
--- NOTE | 2019-08-29 11:59 | Surgery Progress Note ---
Surgery Progress Note Subjective Procedure Performed Right femoral temporary hemodialysis catheter insertion Additional Comments ill appearing labs noted Objective Last 24 Hour Vital Signs Date Time Temp Pulse Resp B/P (MAP) Pulse Ox O2 Delivery O2 Flow Rate FiO2 08/29/19 11:08 83 22 24 08/29/19 09:21 72 08/29/19 09:06 72 18 100 Mechanical Ventilator 24 72 20 24 08/29/19 08:54 72 136/58 08/29/19 08:54 136/58 08/29/19 06:55 71 19 24 08/29/19 04:00 Mechanical Ventilator 08/29/19 04:00 98.6 72 24 151/68 (95) 99 08/29/19 04:00 72 08/29/19 04:00 24 08/29/19 03:30 72 20 24 08/29/19 00:00 98.5 69 20 146/55 (85) 100 08/29/19 00:00 24 08/29/19 00:00 Mechanical Ventilator 08/28/19 23:35 68 08/28/19 23:30 69 21 100 Mechanical Ventilator 24 70 22 24 08/28/19 20:52 74 133/50 08/28/19 20:00 98.7 73 21 142/53 (82) 98 08/28/19 20:00 72 08/28/19 20:00 24 08/28/19 20:00 Mechanical Ventilator 08/28/19 19:30 73 18 24 08/28/19 16:00 Mechanical Ventilator 08/28/19 16:00 69 08/28/19 16:00 24 08/28/19 16:00 98.7 71 18 154/76 (102) 100 08/28/19 15:35 69 20 24 08/28/19 12:00 Mechanical Ventilator 08/28/19 12:00 98.1 67 18 135/57 (83) 100 08/28/19 12:00 66 08/28/19 12:00 24 I&O Intake and Output 08/28/19 08/29/19 19:00 07:00 Intake Total 690 ml 590 ml Output Total 350 ml 230 ml Balance 340 ml 360 ml Free Water 150 ml 50 ml Tube Feeding 540 ml 540 ml Output Urine Total 250 ml 200 ml Stool Total 100 ml 30 ml Dressing: saturated, other Wound: other Cardiovascular: RSR Respiratory: decreased breath sounds Abdomen: soft, present bowel sounds Extremities: no cyanosis Laboratory Tests Test 08/28/19 11:59 08/28/19 17:41 08/29/19 04:20 08/29/19 11:27 POC Whole Blood Glucose 209 MG/DL (74-106) H Pending 159 MG/DL (74-106) H White Blood Count 15.9 K/UL (4.8-10.8) H Red Blood Count 3.31 M/UL (4.70-6.10) L Hemoglobin 8.8 G/DL (14.2-18.0) L Hematocrit 28.0 % (42.0-52.0) L Mean Corpuscular Volume 84 FL (80-99) Mean Corpuscular Hemoglobin 26.6 PG (27.0-31.0) L Mean Corpuscular Hemoglobin Concent 31.5 G/DL (32.0-36.0) L Red Cell Distribution Width 16.1 % (11.6-14.8) H Platelet Count 585 K/UL (150-450) H Mean Platelet Volume 6.3 FL (6.5-10.1) L Neutrophils (%) (Auto) 71.4 % (45.0-75.0) Lymphocytes (%) (Auto) 14.2 % (20.0-45.0) L Monocytes (%) (Auto) 8.1 % (1.0-10.0) Eosinophils (%) (Auto) 5.5 % (0.0-3.0) H Basophils (%) (Auto) 0.8 % (0.0-2.0) Sodium Level 138 MMOL/L (136-145) Potassium Level 2.5 MMOL/L (3.5-5.1) *L Chloride Level 100 MMOL/L (98-107) Carbon Dioxide Level 30 MMOL/L (21-32) Anion Gap 8 mmol/L (5-15) Blood Urea Nitrogen 80 mg/dL (7-18) H Creatinine 2.7 MG/DL (0.55-1.30) H Estimat Glomerular Filtration Rate 23.0 mL/min (>60) Glucose Level 167 MG/DL (74-106) H Calcium Level 8.9 MG/DL (8.5-10.1) Plan Problems: (1) Anemia (2) Hyponatremia (3) Leukocytosis Assessment & Plan: Tracheostomy, left chest pacemaker are again demonstrated. There is bilateral interstitial and airspace disease and bilateral pleural fluid again demonstrated. This appears more severe than on the prior study. Bilateral interstitial and airspace infiltrates versus edema. Bilateral pleural effusions Leukocytosis, anemia, tachycardia, abnormal labs. Wound evaluated and likely etiology of patient's sepsis. Leukocytosis etiology work-up antibiotics per infectious disease Appreciate nephrology input transfuse with dialysis We will follow with recommendations thank you allowing participation's care plan HD access temp HD discussed with medical teams line okay HD as per renal persistent leukocytosis flow cyto noted (4) Ventilator dependent (5) Right lower lobe pneumonia (6) Hypokalemia (7) Hyperkalemia (8) Anasarca (9) Decubitus skin ulcer Assessment & Plan: pt presented on admission with generalized edemae.Skin assessed under tracheostomy and no areas of concerns noted. GT Insertion is marginally erythematous with small amt slough at stoma. Unstageable Pressure Injury R elbow. Base of wound is 100% yellow slough, Borders are erythematous. Wound oozing small amt haemopurulent exudate.Darker skin tone without elevation in skin temp or erythema periwound. Pt's penis and scrotum are grossly edematous and enlarged and weeping serous exudate from numerous sites both from penis and scrotum. Two small open wounds noted at base of at base of shaft of penis ,and contreras aspect of scrotum. Both wounds oozing large amt sanguineous and serosanguineous exudate. Multiple open wounds with Biofilm at base of each wounds noted to contreras/lateral,inferior and posterior aspects of scrotum. These wounds noted to be oozing moderate amts of serosanguineous exudate. Hypertrophic scar with scattered areas of hyperpigmentation noted to Sacrum. DTPI noted to L Buttocks (L)7cm x (W)9cm. Base of wound is purple and indurated.Darker skin tone without erythema, induration or fluctuance R and L ischial tuberosities. Both heels are boggy with non-blanchable erythema. Tx.Plan: Cleanse wound R elbow with Saline. Apply TheraHoney, Apply Moisture Barrier Paste periwound. Cover with Optifoam drsg.Change Daily and prn. Wash GT site with soap and water.Pat dry. Apply Zinc Oxide Paste to GT site Daily. Leave Open to Air. Apply Zinc Oxide Paste to entire Scrotum, Place ABD pads to R and L lateral, and posterior aspects of scrotum TWICE daily. Apply Cavilon Skin Barrier to malleoli and both Heels. Cover each site with Optifoam drsgs. Change every 7 days and prn. Reposition at least every 2hours or as tolerated. Off-load heels with Pillows. APM/BECCA Mattress overlay. (10) Malnutrition Assessment & Plan: DAILY ESTIMATED NEEDS: Needs based on Renal, critical care, wound/ 61kg 22-30 kcals/kg 6151-6117 total kcals 1.25-2 g protein/kg 76-122 g total protein Fluid per MD, now on HD NUTRITION DIAGNOSIS: * Swallowing difficulty R/T respiratory failure, dysphagia as evidenced by trach/vent dep, PEG dep * Increased kcal/prot needs R/T wound healing as evidenced by admitted w/ multiple pressure injuries including full thickness wounds at junction of Shaft of penis, dorsal scrotum, R elbow, and DTPI @ L buttocks. CURRENT TF:Nepro @ 45ml/hr x 24 hrs ENTERAL NUTRITION RECOMMENDATIONS: NEPRO @ 40ml/hr x 24 hrs to provide 960ml, 1728kcal , 78g prot, 697ml free water * Decrease goal rate to 40ml/hr x 24hrs -> meets 100% est kcal/prot needs * HOB over 30 degrees/ water flush per MD WITH CONTINUED DIARRHEA AND CONSISTENTLY LOW LYTES, consider TF change to carb controlled, elemental TF Vital AF 1.2-> rec goal rate of 55ml/hr x 24 hrs to provide 1320ml, 1584kcal, 99g prot, 1070ml free water, 2228mg K and 1114mg phos ADDITIONAL RECOMMENDATIONS: * Per SNF: HT=63" NJ=603 lbs (Vs EMR wt of 166lbs) -> obtain re-calibrated bedscale wt, rec daily wt monitoring * Wound healing: continue Nephrovite x 1 and Garo BID Vit C dosing per Nephro * Monitor renal fxn and lytes-> pt now on HD rec checking f/up phos (0.9* on 08/21) * Add probiotics to help alleviate diarrhea (11) Uremia (12) CKD (chronic kidney disease) stage 5, GFR less than 15 ml/min (13) Colon distention Assessment & Plan: discussed with GI likely functional as having lots of loose bm rectal tube kub f/u Marked distention of the sigmoid colon. 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 No evidence of bowel wall thickening or pneumatosis 12 mm focus of contrast enhancement in the right pectineus muscle. While nonspecific in appearance, appearance raises concern for a possible pseudoaneurysm. Ill- defined thickening of the pectus medius muscle could indicate some intramuscular hemorrhage. The above findings were phoned to Dr. Urias at the time of interpretation Large bilateral pleural effusions Hazy pulmonary parenchymal opacities as well as dense consolidative opacities most likely represent pulmonary edema, but could represent pneumonia Evidence of anasarca elsewhere, with generalized edema of the subcutaneous fat Bladder wall thickening, raises concern for cystitis. Avalos catheter in place Colonic diverticulosis. No evidence of diverticulitis. Tracheostomy Pacemaker Gastrostomy Jonathan Urias Aug 29, 2019 11:59
[2019-08-29 12:00] VITALS: BP 134/58
--- NOTE | 2019-08-29 12:00 | NUR ---
NURSE NOTES: BS of 159 noted. Novolog administered per protocol. Will continue plan of care.
--- NOTE | 2019-08-29 13:56 | Nephrology Progress Note ---
Assessment/Plan Plan Sepsis - IV Abx Pre ESRD - HD now TTS. Urine output is minimal!!! Patient will remain on HD. Needs PermaCath. Ordered. Takes about a week to get it? Subjective Subjective Obtunded. Objective Objective Last 24 Hour Vital Signs Date Time Temp Pulse Resp B/P (MAP) Pulse Ox O2 Delivery O2 Flow Rate FiO2 08/29/19 11:08 83 22 24 08/29/19 09:21 72 08/29/19 09:06 72 18 100 Mechanical Ventilator 24 72 20 24 08/29/19 08:54 72 136/58 08/29/19 08:54 136/58 08/29/19 06:55 71 19 24 08/29/19 04:00 Mechanical Ventilator 08/29/19 04:00 98.6 72 24 151/68 (95) 99 08/29/19 04:00 72 08/29/19 04:00 24 08/29/19 03:30 72 20 24 08/29/19 00:00 98.5 69 20 146/55 (85) 100 08/29/19 00:00 24 08/29/19 00:00 Mechanical Ventilator 08/28/19 23:35 68 08/28/19 23:30 69 21 100 Mechanical Ventilator 24 70 22 24 08/28/19 20:52 74 133/50 08/28/19 20:00 98.7 73 21 142/53 (82) 98 08/28/19 20:00 72 08/28/19 20:00 24 08/28/19 20:00 Mechanical Ventilator 08/28/19 19:30 73 18 24 08/28/19 16:00 Mechanical Ventilator 08/28/19 16:00 69 08/28/19 16:00 24 08/28/19 16:00 98.7 71 18 154/76 (102) 100 08/28/19 15:35 69 20 24 Intake and Output 08/28/19 08/29/19 19:00 07:00 Intake Total 690 ml 590 ml Output Total 350 ml 230 ml Balance 340 ml 360 ml Free Water 150 ml 50 ml Tube Feeding 540 ml 540 ml Output Urine Total 250 ml 200 ml Stool Total 100 ml 30 ml Laboratory Tests 08/28/19 17:41: POC Whole Blood Glucose [Pending] 08/29/19 04:20: White Blood Count 15.9H, Red Blood Count 3.31L, Hemoglobin 8.8L, Hematocrit 28.0L, Mean Corpuscular Volume 84, Mean Corpuscular Hemoglobin 26.6L, Mean Corpuscular Hemoglobin Concent 31.5L, Red Cell Distribution Width 16.1H, Platelet Count 585H, Mean Platelet Volume 6.3L, Neutrophils (%) (Auto) 71.4, Lymphocytes (%) (Auto) 14.2L, Monocytes (%) (Auto) 8.1, Eosinophils (%) (Auto) 5.5H, Basophils (%) (Auto) 0.8, Sodium Level 138, Potassium Level 2.5*L, Chloride Level 100, Carbon Dioxide Level 30, Anion Gap 8, Blood Urea Nitrogen 80H, Creatinine 2.7H, Estimat Glomerular Filtration Rate 23.0, Glucose Level 167H, Calcium Level 8.9 08/29/19 11:27: POC Whole Blood Glucose 159H Height (Feet): 6 Height (Inches): 7 Weight (Pounds): 167 Objective CV RR Trach clean Lungs CTA Abd SNT. BS + E No CCE Erica Pichardo MD Aug 29, 2019 13:55
--- NOTE | 2019-08-29 14:00 | NUR ---
NURSE NOTES: The patient safely completed HD per order. 1.5L output noted. Stable vital signs noted at this time. Will continue plan of care.
--- NOTE | 2019-08-29 15:00 | NUR ---
NURSE NOTES: The patient is resting comfortably without acute distress or shortness of breath. Tolerating vent setting and TF well. Will closely monitor the patient. Will continue plan of care.
[2019-08-29 16:00] VITALS: BP 148/63
--- NOTE | 2019-08-29 16:15 | NUR ---
CASE MANAGEMENT: DCP PATIENT WILL CONTINUE TO REQUIRE HD. UPDATED CLINICAL DOCUMENTATION SENT AND CURRENT HD FLOW SHEET [facility] [phone] TO ASSIST WITH SETTING UP OP HD. ALSO REFERRED THE PATIENT TO [facility] AGAIN. PATIENT WAS DENIED BY [facility] FOR [facility] TRANSFER 08/23/2019. WE WILL RESUBMITTED TO [facility] DUE TO PATIENT STATUS DIFFICULT PLACEMENT. WILL FOLLOW UP WITH [facility] [phone]
--- NOTE | 2019-08-29 16:30 | NUR ---
NURSE NOTES: Bed bath given to the patient. Tolerated well. Will closely monitor the patient. Will continue plan of care.
--- NOTE | 2019-08-29 16:33 | NUR ---
CASE MANAGEMENT: REVIEW SI: KLEBSIELLA, PSEUDOMONAS, PROVIDENCIA PNA . ESRD on HD T 98.7 HR 84 RR 18 BP 136//58 SAT 100% MECH VENT FIO2 24 WBC 15.9 H/H 8.8/28.0 K 2.5 BUN 80 CR 2.7 GLUCOSE 167 IS: CEFEPIME IV Q24HR COLISTIN INH Q12HR EPOETIN SUBQ QMWF HEPARIN IV PRN HD HD NEEDED PATIENT ADMITTED TO STEP DOWN UNIT DCP: PATIENT IS FROM [facility]
--- NOTE | 2019-08-29 18:00 | NUR ---
NURSE NOTES: BS of 202 noted and Novolog administered per protocol. Tolerating vent setting and TF well without residual. The patient is resting comfortably at this time. Will continue plan of care.
--- NOTE | 2019-08-29 19:30 | NUR ---
HAND-OFF: Report given to TAMICA Jerez. The patient is stable at this time. Endorsed plan of care.
--- NOTE | 2019-08-29 19:31 | NUR ---
NURSE NOTES: Report received from TAMICA Madsen. Observed pt lying in the bed, Obtunded. V paced on bus monitor. Trach to vent, Portex 8, AC 15, TV 400, FIO2 24%, PEEP 5. GT intact, running Nepro at 45cc/hr, no residual noted, flushing well. R femoral Rancho noted, intact. IV on L H 22G, TKO. Bed in the lowest position. Side rails up x3. Will continue to monitor.
[2019-08-29 20:00] VITALS: BP 144/61
[2019-08-29] MEDS: Dyna-Hex 2% Top Sol 2oz TOPIC SCH (20:06)
[2019-08-29] MEDS: Atorvastatin 20mg tab GT SCH (20:07)
--- NOTE | 2019-08-29 20:47 | General Progress Note ---
Assessment/Plan Assessment/Plan: Assessment - sigmoid distention on CT - suspect functional - diarrhea - ? Etiology - ? abx, ? TF, ? other (C Diff neg x 2) - Anemia - leukocytosis - stool OB (+) - EGD --> gastritis, Colonoscopy --> not planned since done recently - Renal failure - Sepsis / leukocytosis - Anasarca - resp failure, trach - dysphagia, GT - encephalopathy, contracted - poor px Recommendations - Hold TF - get prior colonoscopy - replace K - will consider colonoscopy or flex sig - Iron panel noted - PPI - abx - supportive care Subjective Allergies: Coded Allergies: No Known Allergies (Unverified , 06/10/19) Subjective Above noted d/w RN ongoing diarrhea noted hypokalemia x 2 days d/w DTR - last colonoscopy 01/2019 at [facility] Objective Last 24 Hour Vital Signs Date Time Temp Pulse Resp B/P (MAP) Pulse Ox O2 Delivery O2 Flow Rate FiO2 08/29/19 20:07 87 144/61 08/29/19 20:00 24 08/29/19 20:00 86 08/29/19 20:00 Mechanical Ventilator 08/29/19 20:00 98.8 89 24 144/61 (88) 99 08/29/19 19:21 87 22 24 08/29/19 16:52 84 08/29/19 16:00 Mechanical Ventilator 08/29/19 16:00 98.0 84 18 148/63 (91) 100 08/29/19 16:00 24 08/29/19 15:26 84 19 24 08/29/19 12:00 Mechanical Ventilator 08/29/19 12:00 98.7 80 18 134/58 (83) 100 08/29/19 12:00 24 08/29/19 12:00 84 08/29/19 11:08 83 22 24 08/29/19 09:21 72 08/29/19 09:06 72 18 100 Mechanical Ventilator 24 72 20 24 08/29/19 08:54 72 136/58 08/29/19 08:54 136/58 08/29/19 08:00 Mechanical Ventilator 08/29/19 08:00 97.4 71 20 132/76 (94) 100 08/29/19 08:00 24 08/29/19 06:55 71 19 24 08/29/19 04:00 Mechanical Ventilator 08/29/19 04:00 98.6 72 24 151/68 (95) 99 08/29/19 04:00 72 08/29/19 04:00 24 08/29/19 03:30 72 20 24 08/29/19 00:00 98.5 69 20 146/55 (85) 100 08/29/19 00:00 24 08/29/19 00:00 Mechanical Ventilator 08/28/19 23:35 68 08/28/19 23:30 69 21 100 Mechanical Ventilator 24 70 22 24 08/28/19 20:52 74 133/50 Intake and Output 08/28/19 08/29/19 19:00 07:00 Intake Total 690 ml 590 ml Output Total 350 ml 230 ml Balance 340 ml 360 ml Free Water 150 ml 50 ml Tube Feeding 540 ml 540 ml Output Urine Total 250 ml 200 ml Stool Total 100 ml 30 ml Laboratory Tests 08/29/19 04:20: White Blood Count 15.9H, Red Blood Count 3.31L, Hemoglobin 8.8L, Hematocrit 28.0L, Mean Corpuscular Volume 84, Mean Corpuscular Hemoglobin 26.6L, Mean Corpuscular Hemoglobin Concent 31.5L, Red Cell Distribution Width 16.1H, Platelet Count 585H, Mean Platelet Volume 6.3L, Neutrophils (%) (Auto) 71.4, Lymphocytes (%) (Auto) 14.2L, Monocytes (%) (Auto) 8.1, Eosinophils (%) (Auto) 5.5H, Basophils (%) (Auto) 0.8, Sodium Level 138, Potassium Level 2.5*L, Chloride Level 100, Carbon Dioxide Level 30, Anion Gap 8, Blood Urea Nitrogen 80H, Creatinine 2.7H, Estimat Glomerular Filtration Rate 23.0, Glucose Level 167H, Calcium Level 8.9 08/29/19 11:27: POC Whole Blood Glucose 159H 08/29/19 17:09: POC Whole Blood Glucose 202H Height (Feet): 6 Height (Inches): 7 Weight (Pounds): 169 Objective Debilitated AA man NCAT (+) trach coarse BS RR abd distended, anasarca, (+) GT ext (+) edema contracted Ronny Mustafa MD Aug 29, 2019 20:47
[2019-08-30] VITALS: BP 134/54
--- NOTE | 2019-08-30 | NUR ---
NURSE NOTES: No acute distress noted at this time. BS of 190 noted, asymptomatic, pt npo noted. Tolerating current vent setting. Oral care given. Reposition done. Will continue to monitor.
[2019-08-30 04:00] VITALS: BP 135/70
[2019-08-30 05:36] LABS: INR 1.3 (0.9-1.1)
[2019-08-30] MEDS: NovoLOG Insulin Flexpen SUBQ SCH ×3 (05:39→18:24)
[2019-08-30 05:42] LABS: BASOPHILS % (AUTO) 1.3 % (0.0-2.0); EOSINOPHILS % (AUTO) 4.4 % (0.0-3.0); HEMATOCRIT 28.1 % (42.0-52.0); HEMOGLOBIN 8.8 G/DL (14.2-18.0); LYMPHOCYTES % (AUTO) 11.2 % (20.0-45.0); MEAN CORPUSCULAR VOLUME 85 FL (80-99); MONOCYTES % (AUTO) 8.9 % (1.0-10.0); NEUTROPHILS % (AUTO) 74.1 % (45.0-75.0); PLATELET COUNT 613 K/UL (150-450); RED CELL DISTRIBUTION WIDTH 16.4 % (11.6-14.8); WHITE BLOOD COUNT 15.6 K/UL (4.8-10.8)
[2019-08-30 06:10] LABS: ALANINE AMINOTRANSFERASE 34 U/L (12-78); ALBUMIN 1.3 G/DL (3.4-5.0); ALBUMIN/GLOBULIN RATIO 0.2 (1.0-2.7); ALKALINE PHOSPHATASE 299 U/L (46-116); ANION GAP 7 mmol/L (5-15); ASPARTATE AMINO TRANSFERASE 44 U/L (15-37); BILIRUBIN,TOTAL 0.3 MG/DL (0.2-1.0); BLOOD UREA NITROGEN 48 mg/dL (7-18); CARBON DIOXIDE 33 MMOL/L (21-32); CHLORIDE 100 MMOL/L (98-107); CREATININE 1.9 MG/DL (0.55-1.30); POTASSIUM 3.2 MMOL/L (3.5-5.1); SODIUM 139 MMOL/L (136-145)
--- NOTE | 2019-08-30 07:11 | NUR ---
HAND-OFF: Report given to TAMICA Ennis.
--- NOTE | 2019-08-30 07:15 | NUR ---
NURSE NOTES: Report received from Chu Quinones RN.Pt asleep noted no resp distress with trach tube to vent,ordered vent settings tolerated,no signs of pain or discomfort,V-Paced on the monitor,Avalos cath draining yellow urine,Rectal tube in placed,GTF Nepro at 45 ml/hr ,clamped at this time,pt NPO for Perma cath insertion,skin warm and dry with PIV to LH and Rancho cath to RT Femoral intact,SR up x2 HOB elevated 30 degrees,bed lock in lowest position will continue with plans of care.
[2019-08-30 08:00] VITALS: BP 145/67
--- NOTE | 2019-08-30 09:19 | General Progress Note ---
Assessment/Plan Assessment/Plan: IMPRESSION: 1. anemia. 2. GI bleed. 3. Leukocytosis. 4. Probable sepsis. + BCX 5. Acute on chronic renal failure. 6. Hyponatremia. 7. Severe protein-calorie malnutrition. 8. Significantly elevated C-reactive protein concerning for infectious etiology. 9. Tracheostomy, G-tube. 10. Ventilator dependence. 11. anasarca with bilateral pleural effusion 12. Hematuria PLAN needs placement care noted on vent surgical follow up monitor labs rate control monitor renal function: HD prognosis poor impression, plan, and exam edited and reviewed in detail care discussed with RN Subjective Allergies: Coded Allergies: No Known Allergies (Unverified , 06/10/19) Subjective remains ill on vent on HD Objective Last 24 Hour Vital Signs Date Time Temp Pulse Resp B/P (MAP) Pulse Ox O2 Delivery O2 Flow Rate FiO2 08/30/19 08:00 98.2 79 17 145/67 (93) 100 08/30/19 08:00 24 08/30/19 08:00 Mechanical Ventilator 08/30/19 07:14 78 18 24 08/30/19 04:00 Mechanical Ventilator 08/30/19 04:00 24 08/30/19 04:00 98.4 72 15 135/70 (91) 100 08/30/19 04:00 77 08/30/19 03:11 77 18 24 08/30/19 00:00 99.2 79 19 134/54 (80) 100 08/30/19 00:00 24 08/30/19 00:00 Mechanical Ventilator 08/30/19 00:00 77 08/29/19 23:00 76 16 100 Mechanical Ventilator 24 78 18 24 08/29/19 20:07 87 144/61 08/29/19 20:00 24 08/29/19 20:00 86 08/29/19 20:00 Mechanical Ventilator 08/29/19 20:00 98.8 89 24 144/61 (88) 99 08/29/19 19:21 87 22 24 08/29/19 16:52 84 08/29/19 16:00 Mechanical Ventilator 08/29/19 16:00 98.0 84 18 148/63 (91) 100 08/29/19 16:00 24 08/29/19 15:26 84 19 24 08/29/19 12:00 Mechanical Ventilator 7/21/20 12:00 98.7 80 18 134/58 (83) 100 08/29/19 12:00 24 08/29/19 12:00 84 08/29/19 11:08 83 22 24 08/29/19 09:21 72 Intake and Output 08/29/19 08/30/19 19:00 07:00 Intake Total 690 ml 95 ml Output Total 1800 ml 100 ml Balance -1110 ml -5 ml Free Water 150 ml 50 ml Tube Feeding 540 ml 45 ml Output Urine Total 200 ml Stool Total 100 ml 100 ml Hemodialysis UF 1500 ml Laboratory Tests 08/29/19 11:27: POC Whole Blood Glucose 159H 08/29/19 17:09: POC Whole Blood Glucose 202H 08/29/19 23:44: POC Whole Blood Glucose 190H 08/30/19 03:45: White Blood Count 15.6H, Red Blood Count 3.30L, Hemoglobin 8.8L, Hematocrit 28.1L, Mean Corpuscular Volume 85, Mean Corpuscular Hemoglobin 26.5L, Mean Corpuscular Hemoglobin Concent 31.2L, Red Cell Distribution Width 16.4H, Platelet Count 613H, Mean Platelet Volume 6.6, Neutrophils (%) (Auto) 74.1, Lymphocytes (%) (Auto) 11.2L, Monocytes (%) (Auto) 8.9, Eosinophils (%) (Auto) 4.4H, Basophils (%) (Auto) 1.3, Prothrombin Time 13.8H, Prothromb Time International Ratio 1.3H, Activated Partial Thromboplast Time 31, Sodium Level 139, Potassium Level 3.2L, Chloride Level 100, Carbon Dioxide Level 33H, Anion Gap 7, Blood Urea Nitrogen 48H, Creatinine 1.9H, Estimat Glomerular Filtration Rate 34.5, Glucose Level 157H, Lactic Acid Level 0.60, Calcium Level 9.0, Total Bilirubin 0.3, Aspartate Amino Transf (AST/SGOT) 44H, Alanine Aminotransferase ( ALT/SGPT) 34, Alkaline Phosphatase 299H, Total Protein 7.6, Albumin 1.3L, Globulin 6.3, Albumin/Globulin Ratio 0.2L 08/30/19 05:12: POC Whole Blood Glucose 157H Height (Feet): 6 Height (Inches): 7 Weight (Pounds): 169 Objective GENERAL: Ill-appearing male, chronically debilitated. HEENT: Tracheostomy in midline. Questionable fullness in the submandibular region. LUNGS: Coarse breath sounds. reduced breath sounds CARDIAC: S1, S2. Regular rate and rhythm. ABDOMEN: Soft. G-tube. EXTREMITIES: With noted edema. NEUROLOGICAL: Poorly responsive, weak diffusely. Kain Ramirez MD Aug 30, 2019 09:19
[2019-08-30] MEDS: Metoprolol Tartrate 100mg tab GT SCH ×2 (09:57→20:23)
[2019-08-30] MEDS: Minoxidil 2.5mg tab GT SCH (09:57)
[2019-08-30] MEDS: Vitamin D 1000 IU Tab GT SCH (09:57)
[2019-08-30] MEDS: Multivitamins W/Minerals 15 ML UDC GT SCH (09:58)
[2019-08-30] MEDS: Ascorbic Acid 500mg tab GT SCH (09:58)
[2019-08-30] MEDS: Nephrovite tab (Rena-Vite) GT SCH (09:58)
[2019-08-30] MEDS: Zinc Oxide Oint 2oz TOPIC SCH ×2 (09:59→18:24)
[2019-08-30] MEDS: Colistin for inhalation INH SCH ×2 (10:54→22:30)
--- NOTE | 2019-08-30 10:54 | Infectious Diseases Prog Note ---
Assessment/Plan Assessment/Plan antibiotics : cefepime, inhaled colsitin 08.27.19 - A 1. VRE UTI s/p rx 2. + blood cultures with coag neg staph likely contaminated 3. respiratory failure 4. leucocytosis 5. klebsiella, pseudomonas, providencia pneumonia COVID 19 test negative x 2 6. renal failure on HD P 1. continue cefepime, inhaled colistin 3 more days 2. will follow up cultures Subjective ROS Limited/Unobtainable: Yes Allergies: Coded Allergies: No Known Allergies (Unverified , 06/10/19) Objective Last 24 Hour Vital Signs Date Time Temp Pulse Resp B/P (MAP) Pulse Ox O2 Delivery O2 Flow Rate FiO2 08/30/19 09:57 79 145/67 08/30/19 09:57 145/67 08/30/19 08:00 98.2 79 17 145/67 (93) 100 08/30/19 08:00 24 08/30/19 08:00 Mechanical Ventilator 08/30/19 07:56 80 08/30/19 07:14 78 18 24 08/30/19 04:00 Mechanical Ventilator 08/30/19 04:00 24 08/30/19 04:00 98.4 72 15 135/70 (91) 100 08/30/19 04:00 77 08/30/19 03:11 77 18 24 08/30/19 00:00 99.2 79 19 134/54 (80) 100 08/30/19 00:00 24 08/30/19 00:00 Mechanical Ventilator 08/30/19 00:00 77 08/29/19 23:00 76 16 100 Mechanical Ventilator 24 78 18 24 08/29/19 20:07 87 144/61 08/29/19 20:00 24 08/29/19 20:00 86 08/29/19 20:00 Mechanical Ventilator 08/29/19 20:00 98.8 89 24 144/61 (88) 99 08/29/19 19:21 87 22 24 08/29/19 16:52 84 08/29/19 16:00 Mechanical Ventilator 08/29/19 16:00 98.0 84 18 148/63 (91) 100 08/29/19 16:00 24 08/29/19 15:26 84 19 24 08/29/19 12:00 Mechanical Ventilator 7/21/20 12:00 98.7 80 18 134/58 (83) 100 08/29/19 12:00 24 08/29/19 12:00 84 08/29/19 11:08 83 22 24 Height (Feet): 6 Height (Inches): 7 Weight (Pounds): 169 HEENT: status post trach Respiratory/Chest: lungs clear Cardiovascular: normal rate, regular rhythm, no gallop/murmur Abdomen: soft, non tender Extremities: other - + edema Microbiology Date/Time Source Procedure Growth Status 08/29/19 03:00 Stool Clostridium difficile Toxin Assay - Final Complete Laboratory Tests Test 08/29/19 11:27 08/29/19 17:09 08/29/19 23:44 08/30/19 03:45 POC Whole Blood Glucose 159 MG/DL (74-106) H 202 MG/DL (74-106) H 190 MG/DL (74-106) H White Blood Count 15.6 K/UL (4.8-10.8) H Red Blood Count 3.30 M/UL (4.70-6.10) L Hemoglobin 8.8 G/DL (14.2-18.0) L Hematocrit 28.1 % (42.0-52.0) L Mean Corpuscular Volume 85 FL (80-99) Mean Corpuscular Hemoglobin 26.5 PG (27.0-31.0) L Mean Corpuscular Hemoglobin Concent 31.2 G/DL (32.0-36.0) L Red Cell Distribution Width 16.4 % (11.6-14.8) H Platelet Count 613 K/UL (150-450) H Mean Platelet Volume 6.6 FL (6.5-10.1) Neutrophils (%) (Auto) 74.1 % (45.0-75.0) Lymphocytes (%) (Auto) 11.2 % (20.0-45.0) L Monocytes (%) (Auto) 8.9 % (1.0-10.0) Eosinophils (%) (Auto) 4.4 % (0.0-3.0) H Basophils (%) (Auto) 1.3 % (0.0-2.0) Prothrombin Time 13.8 SEC (9.30-11.50) H Prothromb Time International Ratio 1.3 (0.9-1.1) H Activated Partial Thromboplast Time 31 SEC (23-33) Sodium Level 139 MMOL/L (136-145) Potassium Level 3.2 MMOL/L (3.5-5.1) L Chloride Level 100 MMOL/L (98-107) Carbon Dioxide Level 33 MMOL/L (21-32) H Anion Gap 7 mmol/L (5-15) Blood Urea Nitrogen 48 mg/dL (7-18) H Creatinine 1.9 MG/DL (0.55-1.30) H Estimat Glomerular Filtration Rate 34.5 mL/min (>60) Glucose Level 157 MG/DL (74-106) H Lactic Acid Level 0.60 mmol/L (0.4-2.0) Calcium Level 9.0 MG/DL (8.5-10.1) Total Bilirubin 0.3 MG/DL (0.2-1.0) Aspartate Amino Transf (AST/SGOT) 44 U/L (15-37) H Alanine Aminotransferase (ALT/SGPT) 34 U/L (12-78) Alkaline Phosphatase 299 U/L (46-116) H Total Protein 7.6 G/DL (6.4-8.2) Albumin 1.3 G/DL (3.4-5.0) L Globulin 6.3 g/dL Albumin/Globulin Ratio 0.2 (1.0-2.7) L Test 08/30/19 05:12 POC Whole Blood Glucose 157 MG/DL (74-106) H Current Medications Medications (Trade) Dose Ordered Sig/Leonel Route PRN Reason Start Time Stop Time Status Last Admin Dose Admin Acetaminophen (Tylenol) 650 mg Q4H PRN GT Mild Pain / fever 08/09/19 05:30 09/08/19 05:29 08/26/19 21:44 Al Hydroxide/Mg Hydroxide (Mylanta) 30 ml FOUR TIMES A DAY PRN GT constipation 08/09/19 06:00 09/08/19 05:29 Ascorbic Acid (Vitamin C) 500 mg DAILY GT 08/09/19 09:00 09/08/19 08:59 08/30/19 09:58 Atorvastatin Calcium (Lipitor) 40 mg BEDTIME GT 08/09/19 21:00 11/07/19 20:59 08/29/19 20:07 Cefepime HCl 0.5 gm/Sodium Chloride 55 ml @ 110 mls/hr Q24H IVPB 08/29/19 11:00 09/03/19 10:59 08/29/19 10:11 Chlorhexidine Gluconate (Felipa-Hex 2%) 1 applic DAILY@2000 TOPIC 08/15/19 20:00 11/13/19 19:59 08/29/19 20:06 Clonidine HCl (Catapres Tab) 0.1 mg Q4H PRN GT SBP>150 08/12/19 10:45 11/10/19 06:44 08/27/19 04:39 Colistimethate Sodium (Colistin *inhalation use only*) 75 mg Q12HRT INH 08/27/19 11:00 09/03/19 10:59 08/29/19 23:21 Dextrose (Dextrose 50%) 25 ml Q30M PRN IV Hypoglycemia 08/09/19 07:30 11/07/19 07:29 Dextrose (Dextrose 50%) 50 ml Q30M PRN IV Hypoglycemia 08/09/19 07:30 11/07/19 07:29 Epoetin Andreas (Epoetin Andreas(ESRD on dialysis)) 10,000 unit WED-WED-WED SUBQ 08/18/19 21:00 11/16/19 20:59 08/28/19 20:51 Famotidine (Pepcid) 20 mg DAILY GT 08/30/19 09:00 11/28/19 08:59 08/30/19 09:57 Insulin Aspart (NovoLOG) Q6HR SUBQ 08/10/19 00:00 11/07/19 11:29 08/29/19 17:12 Loperamide HCl (Imodium) 2 mg Q4H PRN GT Diarrhea 08/09/19 08:00 09/08/19 07:59 08/29/19 08:56 Metoprolol Tartrate (Lopressor) 200 mg Q12HR GT 08/09/19 09:00 11/07/19 08:59 08/30/19 09:57 Minoxidil (Loniten) 5 mg DAILY GT 08/09/19 09:00 11/07/19 08:59 08/30/19 09:57 Multivitamins (Multivitamins W/ Minerals 15ml Liquid) 15 ml DAILY GT 08/09/19 09:00 09/08/19 08:59 08/30/19 09:58 Vitamin B Complex/ Vit C/Folic Acid (Nephrovite) 1 tab DAILY GT 08/09/19 09:00 09/08/19 08:59 08/30/19 09:58 Vitamin D (Vitamin D) 1,000 intlu DAILY GT 08/09/19 09:00 09/08/19 08:59 08/30/19 09:57 Zinc Oxide (Zinc Oxide) 1 applic BID TOPIC 08/10/19 18:00 11/08/19 17:59 08/30/19 09:59 Farnaz Lyle MD Aug 30, 2019 10:54
[2019-08-30] MEDS: Cefepime HCl 0.5 GM in NS 55 ML IVPB SCH (11:26)
--- NOTE | 2019-08-30 11:31 | Hematology/Onc Progress Note ---
Assessment/Plan Assessment/Plan Assessment/recs # Leukocytosis - with multiple infections, VRE UTI, flow is negative --> wbc trend 33-->28-->25->23->22->23->24->17.3-->17-->14->16-->15.6 --> on abx, linezolid and zosyn--> zosyn-->off --> + blood cultures with coag neg staph likely contaminated --> as per id recs --> has ordered a flow cytometry (with pathology) --> does show increased nK cell activity --> JOURDAN 2 and bcr-abl labs ordered (these are send outs) --> plt 585-->613 # Anemia due to chronic disease/kidney disease as well, gi bleed + occult + noted --> was on iron in the past, now on hold --> has been started on epogen --> as per renal care --> egd done and shows gastritis --> on ppi --> egd showed gastritis, colo recently done --> hgb 9-->8.7-->7.6-->9.2-->8.9-->9.2->9.3-->8.8 # Respiratory failure --> per pulm, s/p trach --> COVID 19 test negative x 2 # Dysphagia s/p gtube with nepro --> per gi # ESRD with r fem julito --> hd as per renal # Dvt ppx scds Appreciate consultation and matt Rn Subjective HEENT: Denies: no symptoms, eye pain, blurred vision, tearing, double vision, ear pain, ear discharge, nose pain, nose congestion, throat pain, throat swelling, mouth pain, mouth swelling, other Cardiovascular: Denies: no symptoms, chest pain, edema, irregular heart rate, lightheadedness, palpitations, syncope, other Respiratory: Denies: no symptoms, cough, shortness of breath, SOB with excertion, SOB at rest, sputum, wheezing, other Gastrointestinal/Abdominal: Denies: no symptoms, abdomen distended, abdominal pain, black stools, tarry stools, blood in stool, constipated, diarrhea, difficulty swallowing, nausea, poor appetite, poor fluid intake, rectal bleeding , vomiting, other Genitourinary: Denies: no symptoms, burning, discharge, frequency, flank pain, hematuria, incontinence, pain, urgency, other Neurologic/Psychiatric: Denies: no symptoms, anxiety, depressed, emotional problems, headache, numbness, paresthesia, pre-existing deficit, seizure, tingling, tremors, weakness, other Endocrine: Denies: no symptoms, excessive sweating, flushing, intolerance to cold, intolerance to heat, increased hunger, increased thirst, increased urine, unexplained weight gain, unexplained weight loss, other Allergies: Coded Allergies: No Known Allergies (Unverified , 06/10/19) Subjective 08/15 meds noted, no bleeding, hgb 8.8, wbc 28, path flow pending 08/16 flow pending dw pathologist, results pending, wbc 25, hgb 9 08/17 labs reviewed, meds reviewed, meds noted, no night sweats 08/19 remains obtunded, on vent/trach, no bleeding wbc 21.7 08/20 labs have been reviewed, no bleeding, wbc still elev, path reviewed 08/21 labs are noted, no bleeding, on vent, wbc better 08/22 labs noted, no bleeding, meds reviewed, wbc 24 hgb 7.6 08/23 vent, off abx, c diff negative, h/h stable 08/24 labs reviewed, on abx, wbc 17, hgb 8.9, no hemolysis 08/26 reviewed flow and is negative for leukemia, matt rn 08/27 meds reviewed, no night sweats, matt rn, no major bleeding 08/28 meds reivewed, labs noted 08/29 wbc is stable, approx 15, hgb 8.8, no hemolysis Objective Objective Current Medications Medications (Trade) Dose Ordered Sig/Leonel Route PRN Reason Start Time Stop Time Status Last Admin Dose Admin Acetaminophen (Tylenol) 650 mg Q4H PRN GT Mild Pain / fever 08/09/19 05:30 09/08/19 05:29 08/26/19 21:44 Al Hydroxide/Mg Hydroxide (Mylanta) 30 ml FOUR TIMES A DAY PRN GT constipation 08/09/19 06:00 09/08/19 05:29 Ascorbic Acid (Vitamin C) 500 mg DAILY GT 08/09/19 09:00 09/08/19 08:59 08/30/19 09:58 Atorvastatin Calcium (Lipitor) 40 mg BEDTIME GT 08/09/19 21:00 11/07/19 20:59 08/29/19 20:07 Cefepime HCl 0.5 gm/Sodium Chloride 55 ml @ 110 mls/hr Q24H IVPB 08/29/19 11:00 09/03/19 10:59 08/30/19 11:26 Chlorhexidine Gluconate (Felipa-Hex 2%) 1 applic DAILY@2000 TOPIC 08/15/19 20:00 11/13/19 19:59 08/29/19 20:06 Clonidine HCl (Catapres Tab) 0.1 mg Q4H PRN GT SBP>150 08/12/19 10:45 11/10/19 06:44 08/27/19 04:39 Colistimethate Sodium (Colistin *inhalation use only*) 75 mg Q12HRT INH 08/27/19 11:00 09/03/19 10:59 08/30/19 10:54 Dextrose (Dextrose 50%) 25 ml Q30M PRN IV Hypoglycemia 08/09/19 07:30 11/07/19 07:29 Dextrose (Dextrose 50%) 50 ml Q30M PRN IV Hypoglycemia 08/09/19 07:30 11/07/19 07:29 Epoetin Andreas (Epoetin Andreas(ESRD on dialysis)) 10,000 unit WED-WED-WED SUBQ 08/18/19 21:00 11/16/19 20:59 08/28/19 20:51 Famotidine (Pepcid) 20 mg DAILY GT 08/30/19 09:00 11/28/19 08:59 08/30/19 09:57 Insulin Aspart (NovoLOG) Q6HR SUBQ 08/10/19 00:00 11/07/19 11:29 08/29/19 17:12 Loperamide HCl (Imodium) 2 mg Q4H PRN GT Diarrhea 08/09/19 08:00 09/08/19 07:59 08/29/19 08:56 Metoprolol Tartrate (Lopressor) 200 mg Q12HR GT 08/09/19 09:00 11/07/19 08:59 08/30/19 09:57 Minoxidil (Loniten) 5 mg DAILY GT 08/09/19 09:00 11/07/19 08:59 08/30/19 09:57 Multivitamins (Multivitamins W/ Minerals 15ml Liquid) 15 ml DAILY GT 08/09/19 09:00 09/08/19 08:59 08/30/19 09:58 Vitamin B Complex/ Vit C/Folic Acid (Nephrovite) 1 tab DAILY GT 08/09/19 09:00 09/08/19 08:59 08/30/19 09:58 Vitamin D (Vitamin D) 1,000 intlu DAILY GT 08/09/19 09:00 09/08/19 08:59 08/30/19 09:57 Zinc Oxide (Zinc Oxide) 1 applic BID TOPIC 08/10/19 18:00 11/08/19 17:59 08/30/19 09:59 Last 24 Hour Vital Signs Date Time Temp Pulse Resp B/P (MAP) Pulse Ox O2 Delivery O2 Flow Rate FiO2 08/30/19 10:54 79 6 100 Mechanical Ventilator 24 80 17 24 08/30/19 09:57 79 145/67 08/30/19 09:57 145/67 08/30/19 08:00 98.2 79 17 145/67 (93) 100 08/30/19 08:00 24 08/30/19 08:00 Mechanical Ventilator 08/30/19 07:56 80 08/30/19 07:14 78 18 24 08/30/19 04:00 Mechanical Ventilator 08/30/19 04:00 24 08/30/19 04:00 98.4 72 15 135/70 (91) 100 08/30/19 04:00 77 08/30/19 03:11 77 18 24 08/30/19 00:00 99.2 79 19 134/54 (80) 100 08/30/19 00:00 24 08/30/19 00:00 Mechanical Ventilator 08/30/19 00:00 77 08/29/19 23:00 76 16 100 Mechanical Ventilator 24 78 18 24 08/29/19 20:07 87 144/61 08/29/19 20:00 24 08/29/19 20:00 86 08/29/19 20:00 Mechanical Ventilator 08/29/19 20:00 98.8 89 24 144/61 (88) 99 08/29/19 19:21 87 22 24 08/29/19 16:52 84 08/29/19 16:00 Mechanical Ventilator 08/29/19 16:00 98.0 84 18 148/63 (91) 100 08/29/19 16:00 24 08/29/19 15:26 84 19 24 08/29/19 12:00 Mechanical Ventilator 08/29/19 12:00 98.7 80 18 134/58 (83) 100 08/29/19 12:00 24 08/29/19 12:00 84 08/29/19 11:08 83 22 24 08/29/19 09:21 72 08/29/19 09:06 72 18 100 Mechanical Ventilator 24 72 20 24 08/29/19 08:54 72 136/58 08/29/19 08:54 136/58 08/29/19 08:00 Mechanical Ventilator 08/29/19 08:00 97.4 71 20 132/76 (94) 100 08/29/19 08:00 24 08/29/19 06:55 71 19 24 08/29/19 04:00 Mechanical Ventilator 08/29/19 04:00 98.6 72 24 151/68 (95) 99 08/29/19 04:00 72 08/29/19 04:00 24 08/29/19 03:30 72 20 24 08/29/19 00:00 98.5 69 20 146/55 (85) 100 08/29/19 00:00 24 08/29/19 00:00 Mechanical Ventilator 08/28/19 23:35 68 08/28/19 23:30 69 21 100 Mechanical Ventilator 24 70 22 24 08/28/19 20:52 74 133/50 08/28/19 20:00 98.7 73 21 142/53 (82) 98 20 20:00 72 20 20:00 24 08/28/19 20:00 Mechanical Ventilator 08/28/19 19:30 73 18 24 08/28/19 16:00 Mechanical Ventilator 08/28/19 16:00 69 20 16:00 24 08/28/19 16:00 98.7 71 18 154/76 (102) 100 20 15:35 69 20 24 08/28/19 12:00 Mechanical Ventilator 08/28/19 12:00 98.1 67 18 135/57 (83) 100 08/28/19 12:00 66 08/28/19 12:00 24 Intake and Output 08/29/19 08/30/19 18:59 06:59 Intake Total 690 ml 140 ml Output Total 1830 ml 100 ml Balance -1140 ml 40 ml Free Water 150 ml 50 ml Tube Feeding 540 ml 90 ml Output Urine Total 200 ml Stool Total 130 ml 100 ml Hemodialysis UF 1500 ml Labs Test 08/27/19 11:44 08/27/19 16:33 08/27/19 23:54 08/28/19 05:56 POC Whole Blood Glucose 191 MG/DL (74-106) 148 MG/DL (74-106) Test 08/28/19 08:10 08/28/19 11:59 08/28/19 17:41 08/29/19 04:20 White Blood Count 14.4 K/UL (4.8-10.8) 15.9 K/UL (4.8-10.8) Red Blood Count 3.46 M/UL (4.70-6.10) 3.31 M/UL (4.70-6.10) Hemoglobin 9.3 G/DL (14.2-18.0) 8.8 G/DL (14.2-18.0) Hematocrit 29.5 % (42.0-52.0) 28.0 % (42.0-52.0) Mean Corpuscular Volume 85 FL (80-99) 84 FL (80-99) Mean Corpuscular Hemoglobin 27.0 PG (27.0-31.0) 26.6 PG (27.0-31.0) Mean Corpuscular Hemoglobin Concent 31.6 G/DL (32.0-36.0) 31.5 G/DL (32.0-36.0) Red Cell Distribution Width 16.3 % (11.6-14.8) 16.1 % (11.6-14.8) Platelet Count 511 K/UL (150-450) 585 K/UL (150-450) Mean Platelet Volume 6.5 FL (6.5-10.1) 6.3 FL (6.5-10.1) Neutrophils (%) (Auto) 70.4 % (45.0-75.0) 71.4 % (45.0-75.0) Lymphocytes (%) (Auto) 13.1 % (20.0-45.0) 14.2 % (20.0-45.0) Monocytes (%) (Auto) 8.9 % (1.0-10.0) 8.1 % (1.0-10.0) Eosinophils (%) (Auto) 6.4 % (0.0-3.0) 5.5 % (0.0-3.0) Basophils (%) (Auto) 1.2 % (0.0-2.0) 0.8 % (0.0-2.0) Sodium Level 139 MMOL/L (136-145) 138 MMOL/L (136-145) Potassium Level 2.5 MMOL/L (3.5-5.1) 2.5 MMOL/L (3.5-5.1) Chloride Level 102 MMOL/L (98-107) 100 MMOL/L (98-107) Carbon Dioxide Level 31 MMOL/L (21-32) 30 MMOL/L (21-32) Anion Gap 5 mmol/L (5-15) 8 mmol/L (5-15) Blood Urea Nitrogen 68 mg/dL (7-18) 80 mg/dL (7-18) Creatinine 2.5 MG/DL (0.55-1.30) 2.7 MG/DL (0.55-1.30) Estimat Glomerular Filtration Rate 25.1 mL/min (>60) 23.0 mL/min (>60) Glucose Level 163 MG/DL (74-106) 167 MG/DL (74-106) Calcium Level 9.1 MG/DL (8.5-10.1) 8.9 MG/DL (8.5-10.1) Total Bilirubin 0.3 MG/DL (0.2-1.0) Aspartate Amino Transf (AST/SGOT) 46 U/L (15-37) Alanine Aminotransferase (ALT/SGPT) 29 U/L (12-78) Alkaline Phosphatase 324 U/L (46-116) Total Protein 7.5 G/DL (6.4-8.2) Albumin 1.3 G/DL (3.4-5.0) Globulin 6.2 g/dL Albumin/Globulin Ratio 0.2 (1.0-2.7) POC Whole Blood Glucose 209 MG/DL (74-106) Test 08/29/19 11:27 08/29/19 17:09 08/29/19 23:44 08/30/19 03:45 POC Whole Blood Glucose 159 MG/DL (74-106) 202 MG/DL (74-106) 190 MG/DL (74-106) White Blood Count 15.6 K/UL (4.8-10.8) Red Blood Count 3.30 M/UL (4.70-6.10) Hemoglobin 8.8 G/DL (14.2-18.0) Hematocrit 28.1 % (42.0-52.0) Mean Corpuscular Volume 85 FL (80-99) Mean Corpuscular Hemoglobin 26.5 PG (27.0-31.0) Mean Corpuscular Hemoglobin Concent 31.2 G/DL (32.0-36.0) Red Cell Distribution Width 16.4 % (11.6-14.8) Platelet Count 613 K/UL (150-450) Mean Platelet Volume 6.6 FL (6.5-10.1) Neutrophils (%) (Auto) 74.1 % (45.0-75.0) Lymphocytes (%) (Auto) 11.2 % (20.0-45.0) Monocytes (%) (Auto) 8.9 % (1.0-10.0) Eosinophils (%) (Auto) 4.4 % (0.0-3.0) Basophils (%) (Auto) 1.3 % (0.0-2.0) Prothrombin Time 13.8 SEC (9.30-11.50) Prothromb Time International Ratio 1.3 (0.9-1.1) Activated Partial Thromboplast Time 31 SEC (23-33) Sodium Level 139 MMOL/L (136-145) Potassium Level 3.2 MMOL/L (3.5-5.1) Chloride Level 100 MMOL/L (98-107) Carbon Dioxide Level 33 MMOL/L (21-32) Anion Gap 7 mmol/L (5-15) Blood Urea Nitrogen 48 mg/dL (7-18) Creatinine 1.9 MG/DL (0.55-1.30) Estimat Glomerular Filtration Rate 34.5 mL/min (>60) Glucose Level 157 MG/DL (74-106) Lactic Acid Level 0.60 mmol/L (0.4-2.0) Calcium Level 9.0 MG/DL (8.5-10.1) Total Bilirubin 0.3 MG/DL (0.2-1.0) Aspartate Amino Transf (AST/SGOT) 44 U/L (15-37) Alanine Aminotransferase (ALT/SGPT) 34 U/L (12-78) Alkaline Phosphatase 299 U/L (46-116) Total Protein 7.6 G/DL (6.4-8.2) Albumin 1.3 G/DL (3.4-5.0) Globulin 6.3 g/dL Albumin/Globulin Ratio 0.2 (1.0-2.7) Test 08/30/19 05:12 POC Whole Blood Glucose 157 MG/DL (74-106) Height (Feet): 6 Height (Inches): 7 Weight (Pounds): 169 Objective Physical Exam General Appearance: nad, Chronically Ill Head: normocephalic Eyes: right eye PERRL - Will not open left eye ENT: moist mucus membranes Neck: other - submandibular mass R, fairly rigid with resistance to rotation to L, tracheotomy Respiratory: decreased breath sounds, crackles, other - pacemaker, vent+ Cardiovascular: regular rate, rhythm, edema - anasarca Gastrointestinal: non tender, distended, other - G tube Genitourinary: other Musculoskeletal: other - Contractures all extremities Neurologic: sensory intact, motor weakness, responsive Psychiatric: other Skin: Decubitus/Ulcer - Stage III right elbow, stage III left elbow, stage II sacrum, stage III scrotum, warm/dry Fitz Campos MD Aug 30, 2019 11:31
[2019-08-30 12:00] VITALS: BP_SYST 131; BP_SYST 152; BP_DIAS 61; BP_DIAS 74
--- NOTE | 2019-08-30 12:27 | Nephrology Progress Note ---
Assessment/Plan Plan Sepsis - IV Abx Established ESRD - HD now TTS. Urine output is minimal!!! Patient will remain on HD. Needs PermaCath. Ordered. Takes about a week to get it? Subjective Subjective Obtunded. Objective Objective Last 24 Hour Vital Signs Date Time Temp Pulse Resp B/P (MAP) Pulse Ox O2 Delivery O2 Flow Rate FiO2 08/30/19 10:54 79 6 100 Mechanical Ventilator 24 80 17 24 08/30/19 09:57 79 145/67 08/30/19 09:57 145/67 08/30/19 08:00 98.2 79 17 145/67 (93) 100 08/30/19 08:00 24 08/30/19 08:00 Mechanical Ventilator 08/30/19 07:56 80 08/30/19 07:14 78 18 24 08/30/19 04:00 Mechanical Ventilator 08/30/19 04:00 24 08/30/19 04:00 98.4 72 15 135/70 (91) 100 08/30/19 04:00 77 08/30/19 03:11 77 18 24 08/30/19 00:00 99.2 79 19 134/54 (80) 100 08/30/19 00:00 24 08/30/19 00:00 Mechanical Ventilator 08/30/19 00:00 77 08/29/19 23:00 76 16 100 Mechanical Ventilator 24 78 18 24 08/29/19 20:07 87 144/61 08/29/19 20:00 24 08/29/19 20:00 86 08/29/19 20:00 Mechanical Ventilator 08/29/19 20:00 98.8 89 24 144/61 (88) 99 08/29/19 19:21 87 22 24 08/29/19 16:52 84 08/29/19 16:00 Mechanical Ventilator 08/29/19 16:00 98.0 84 18 148/63 (91) 100 08/29/19 16:00 24 08/29/19 15:26 84 19 24 Intake and Output 08/29/19 08/30/19 18:59 06:59 Intake Total 690 ml 140 ml Output Total 1830 ml 100 ml Balance -1140 ml 40 ml Free Water 150 ml 50 ml Tube Feeding 540 ml 90 ml Output Urine Total 200 ml Stool Total 130 ml 100 ml Hemodialysis UF 1500 ml Laboratory Tests 08/29/19 17:09: POC Whole Blood Glucose 202H 08/29/19 23:44: POC Whole Blood Glucose 190H 08/30/19 03:45: White Blood Count 15.6H, Red Blood Count 3.30L, Hemoglobin 8.8L, Hematocrit 28.1L, Mean Corpuscular Volume 85, Mean Corpuscular Hemoglobin 26.5L, Mean Corpuscular Hemoglobin Concent 31.2L, Red Cell Distribution Width 16.4H, Platelet Count 613H, Mean Platelet Volume 6.6, Neutrophils (%) (Auto) 74.1, Lymphocytes (%) (Auto) 11.2L, Monocytes (%) (Auto) 8.9, Eosinophils (%) (Auto) 4.4H, Basophils (%) (Auto) 1.3, Prothrombin Time 13.8H, Prothromb Time International Ratio 1.3H, Activated Partial Thromboplast Time 31, Sodium Level 139, Potassium Level 3.2L, Chloride Level 100, Carbon Dioxide Level 33H, Anion Gap 7, Blood Urea Nitrogen 48H, Creatinine 1.9H, Estimat Glomerular Filtration Rate 34.5, Glucose Level 157H, Lactic Acid Level 0.60, Calcium Level 9.0, Total Bilirubin 0.3, Aspartate Amino Transf (AST/SGOT) 44H, Alanine Aminotransferase ( ALT/SGPT) 34, Alkaline Phosphatase 299H, Total Protein 7.6, Albumin 1.3L, Globulin 6.3, Albumin/Globulin Ratio 0.2L 08/30/19 05:12: POC Whole Blood Glucose 157H 08/30/19 11:23: POC Whole Blood Glucose [Pending] Height (Feet): 6 Height (Inches): 7 Weight (Pounds): 165 Objective CV RR Trach clean Lungs CTA Abd SNT. BS + E No CCE Erica Pichardo MD Aug 30, 2019 12:27
--- NOTE | 2019-08-30 13:54 | NUR ---
CASE MANAGEMENT: REVIEW SI: KLEBSIELLA, PSEUDOMONAS, PROVIDENCIA PNA . ESRD on HD T 98.2 HR 79 RR 17 BP 145/67 SAT 100% MECH VENT FIO2 24 WBC 15.6 H/H 8.8/28.1 K 3.2 BUN 48 CR 1.9 NEEDS PERMA-CATH IS: CEFEPIME IV Q24HR COLISTIN INH Q12HR EPOETIN SUBQ QMWF HEPARIN IV PRN HD HD NEEDED PATIENT ADMITTED TO STEP DOWN UNIT DCP: PATIENT IS FROM [facility]
--- NOTE | 2019-08-30 13:58 | NUR ---
CASE MANAGEMENT: DCP PATIENT WILL CONTINUE TO REQUIRE HD. [facility] [phone] REQUEST OP HD ORDER FROM BUSINESS TRANSFORMATION ANALYST DR. YANEZ [phone] MADE AWARE ALSO REFERRED THE PATIENT TO: [facility] [phone] PER SASHA NO BEDS AVAILABLE FOR HD PATIENTS. THEY HAVE 12 BEDS, ALL ARE FILLED AND 9 PATIENTS ARE ON THE WAITING LIST [facility] [phone] PENDING REVIEW RENAL FOR OP HD [phone] PENDING REVIEW
--- NOTE | 2019-08-30 14:30 | NUR ---
NURSE NOTES: Pt brought down to Radiology per bed for Permacath insertion accompanied by transporter and Omkar lee bagging pt.No resp distress presented.
[2019-08-30] MEDS ORDERED: Lidocaine 1% 10mg/ml/Epi 0.005mg/ml 30ml vial INJ PRN ×2 (14:51→15:04)
[2019-08-30] MEDS ORDERED: Heparin1,000 units/500ml Premix(Conc:2 units/ml) IV PRN (14:54)
[2019-08-30] MEDS ORDERED: Lidocaine 1% 10mg/ml/Epi 0.005mg/ml 30ml vial INJ ONE (15:00)
--- NOTE | 2019-08-30 15:39 | Pre-Procedure Note/Attestation ---
Pre-Procedure Note/Attestation Complete Prior to Procedure Planned Procedure: not applicable Procedure Narrative: permacath Indications for Procedure Pre-Operative Diagnosis: renal failure Attestation I attest that I discussed the nature of the procedure; its benefits; risks and complications; and alternatives (and the risks and benefits of such alternatives ), prior to the procedure, with the patient (or the patient's legal rental representative). I attest that, if there was a reasonable possibility of needing a blood transfusion, the patient (or the patient's legal rental representative) was given the [facility] standardized written summary, pursuant to the Jim Kait Blood Safety Act ([place] Health and Safety Code # 1645, as amended). I attest that I re-evaluated the patient just prior to the surgery and that there has been no change in the patient's H&P, except as documented below: Discussed by phone with daughter at 1329 on 08/30/2019 Jorge Sosa MD Aug 30, 2019 15:39
[2019-08-30] MEDS ORDERED: ceFAZolin sod 1 GM in D5W 55 ML IVPB SCH (15:45)
[2019-08-30 16:00] VITALS: BP 152/74
[2019-08-30] MEDS ORDERED: Golytely 4L ORAL SCH (16:00)
--- NOTE | 2019-08-30 16:00 | NUR ---
NURSE NOTES: Pt back to unit per bad S/P Permacath insertion to RT Subclavian,with small amount of bleeding noted to site.
--- NOTE | 2019-08-30 16:10 | Brief Operative Note ---
Immediate Post Operative Note Operative Note Pre-op Diagnosis: renal failure Procedure: R IJV permacath Post-op Diagnosis: same as pre-op Surgeon: Wes Carranza Anesthesia: local Specimen: none Complications: none Condition: stable Fluids: none Implant(s) used?: No Jorge Carranza MD Aug 30, 2019 16:10
--- NOTE | 2019-08-30 16:30 | NUR ---
NURSE NOTES: Pt for Colonoscopy in am,Golytely ordered and started ,pt's abdomen firm and distended.
--- NOTE | 2019-08-30 16:32 | Diagnostic Imaging Report ---
Indications: Needs long-term dialysis access Technique: Preprocedure, case discussed with infectious disease specialist Dr. Lyle who indicated that. Was safe to proceed from infectious disease standpoint despite leukocytosis. Patient given IV Ancef. Sonography demonstrated patent and compressible right internal jugular vein. Total sterile technique, including sterile probe cover and sterile gel, sterile gloves, hand hygiene, hat, mask, sterile gown, large sterile drape, and preparation with 2% chlorhexidine utilized. Local anesthesia with 1% lidocaine. Under real-time ultrasound guidance, puncture right internal jugular vein using 21-gauge micropuncture needle, passage 0.018 guidewire, exchange for 4 Burkinan micropuncture introducer. The guidewire was used to measure the appropriate catheter length, and was removed. The sheath was left in place. The subcutaneous tract was then anesthetized with 1% lidocaine. A chest dermatotomy was made . The tunneling device was used to pull a 14.5 Burkinan 23 cm Palindrome catheter through the subcutaneous tunnel to the neck dermatotomy. A guidewire was passed through the neck introducer into the inferior vena cava, and serial dilators were passed over it, followed by the introduction of a 14.5 Burkinan AirGuard peel-away sheath. The catheter was then introduced into the sheath, the peel-away sheath was removed. Digital radiograph documents satisfactory catheter tip position in the high right atrium, no kinking at the insertion site. Both catheter ports aspirated and flushed. Catheter was fixed to the skin. Patient tolerated procedure well without immediate complication. Total fluoroscopy time 41.7 seconds. Total dose area product [id number] [id number] Total number of images- Comparison: None. Findings: Completion radiograph documents satisfactory position and course of the catheter, catheter tip at the cavoatrial junction. Impression: Successful placement of right transjugular tunneled dialysis catheter, as described above
--- NOTE | 2019-08-30 16:57 | NUR ---
RAD TUNNELED DIALYSIS CATHETER PLACEMENT BY DR. YADIEL GTZ. FA
[2019-08-30] MEDS ORDERED: Tubing IV Secondary IV ONE (18:24)
[2019-08-30] MEDS ORDERED: NS 275ml ONE (18:24)
--- NOTE | 2019-08-30 19:00 | NUR ---
HAND-OFF: Report given to Meri Quinones RN..
--- NOTE | 2019-08-30 19:15 | NUR ---
NURSE NOTES: Report received from TAMICA Ennis. Observed pt lying in the bed, obtunded. V paced. Trach to vent, Portex 8, AC 15/450/24/5. NPO at this time, plan for colonoscopy noted. Rectal tube on, noted white colored watery output noted. S/p permocath placement on R subclavian noted, intact. R H 22G, 1/2 NS at 100cc/hr. Bed in the lowest position. Side rails up x3. Will continue to monitor.
--- NOTE | 2019-08-30 19:29 | NUR ---
NURSE NOTES: Telephone Consent for colonoscopy obtained by family member, city auditor witnessed. Will continue to monitor.
[2019-08-30 20:00] VITALS: BP 125/58
[2019-08-30] MEDS: Epoetin Alfa-EPBX(ESRD on dialysis)10,000 unit/ml vial SUBQ SCH (20:23)
[2019-08-30] MEDS: Dyna-Hex 2% Top Sol 2oz TOPIC SCH (20:23)
[2019-08-30] MEDS: Atorvastatin 20mg tab GT SCH (20:23)
--- NOTE | 2019-08-30 20:34 | Surgery Progress Note ---
Surgery Progress Note Subjective Procedure Performed Right femoral temporary hemodialysis catheter insertion Additional Comments colonoscopy tomorrow juan cute events Objective Last 24 Hour Vital Signs Date Time Temp Pulse Resp B/P (MAP) Pulse Ox O2 Delivery O2 Flow Rate FiO2 08/30/19 20:23 68 125/58 08/30/19 20:00 Mechanical Ventilator 08/30/19 20:00 97.7 63 16 125/58 (80) 98 08/30/19 20:00 24 08/30/19 18:43 66 15 24 08/30/19 16:00 120 08/30/19 16:00 24 08/30/19 16:00 100.2 108 25 152/74 (100) 100 08/30/19 16:00 Mechanical Ventilator 08/30/19 15:30 76 16 24 08/30/19 12:00 Mechanical Ventilator 08/30/19 12:00 24 08/30/19 12:00 97.9 78 15 131/61 (84) 100 08/30/19 11:42 79 08/30/19 10:54 79 6 100 Mechanical Ventilator 24 80 17 24 08/30/19 09:57 79 145/67 08/30/19 09:57 145/67 08/30/19 08:00 98.2 79 17 145/67 (93) 100 08/30/19 08:00 24 08/30/19 08:00 Mechanical Ventilator 08/30/19 07:56 80 08/30/19 07:14 78 18 24 08/30/19 04:00 Mechanical Ventilator 08/30/19 04:00 24 08/30/19 04:00 98.4 72 15 135/70 (91) 100 08/30/19 04:00 77 08/30/19 03:11 77 18 24 08/30/19 00:00 99.2 79 19 134/54 (80) 100 08/30/19 00:00 24 08/30/19 00:00 Mechanical Ventilator 08/30/19 00:00 77 08/29/19 23:00 76 16 100 Mechanical Ventilator 24 78 18 24 I&O Intake and Output 08/29/19 08/30/19 19:00 07:00 Intake Total 690 ml 95 ml Output Total 1800 ml 100 ml Balance -1110 ml -5 ml Free Water 150 ml 50 ml Tube Feeding 540 ml 45 ml Output Urine Total 200 ml Stool Total 100 ml 100 ml Hemodialysis UF 1500 ml Dressing: other Wound: other Drains: other Cardiovascular: RSR Respiratory: decreased breath sounds Abdomen: soft, non-tender, present bowel sounds Extremities: no cyanosis Laboratory Tests Test 08/29/19 23:44 08/30/19 03:45 08/30/19 05:12 08/30/19 11:23 POC Whole Blood Glucose 190 MG/DL (74-106) H 157 MG/DL (74-106) H Pending White Blood Count 15.6 K/UL (4.8-10.8) H Red Blood Count 3.30 M/UL (4.70-6.10) L Hemoglobin 8.8 G/DL (14.2-18.0) L Hematocrit 28.1 % (42.0-52.0) L Mean Corpuscular Volume 85 FL (80-99) Mean Corpuscular Hemoglobin 26.5 PG (27.0-31.0) L Mean Corpuscular Hemoglobin Concent 31.2 G/DL (32.0-36.0) L Red Cell Distribution Width 16.4 % (11.6-14.8) H Platelet Count 613 K/UL (150-450) H Mean Platelet Volume 6.6 FL (6.5-10.1) Neutrophils (%) (Auto) 74.1 % (45.0-75.0) Lymphocytes (%) (Auto) 11.2 % (20.0-45.0) L Monocytes (%) (Auto) 8.9 % (1.0-10.0) Eosinophils (%) (Auto) 4.4 % (0.0-3.0) H Basophils (%) (Auto) 1.3 % (0.0-2.0) Prothrombin Time 13.8 SEC (9.30-11.50) H Prothromb Time International Ratio 1.3 (0.9-1.1) H Activated Partial Thromboplast Time 31 SEC (23-33) Sodium Level 139 MMOL/L (136-145) Potassium Level 3.2 MMOL/L (3.5-5.1) L Chloride Level 100 MMOL/L (98-107) Carbon Dioxide Level 33 MMOL/L (21-32) H Anion Gap 7 mmol/L (5-15) Blood Urea Nitrogen 48 mg/dL (7-18) H Creatinine 1.9 MG/DL (0.55-1.30) H Estimat Glomerular Filtration Rate 34.5 mL/min (>60) Glucose Level 157 MG/DL (74-106) H Lactic Acid Level 0.60 mmol/L (0.4-2.0) Calcium Level 9.0 MG/DL (8.5-10.1) Total Bilirubin 0.3 MG/DL (0.2-1.0) Aspartate Amino Transf (AST/SGOT) 44 U/L (15-37) H Alanine Aminotransferase (ALT/SGPT) 34 U/L (12-78) Alkaline Phosphatase 299 U/L (46-116) H Total Protein 7.6 G/DL (6.4-8.2) Albumin 1.3 G/DL (3.4-5.0) L Globulin 6.3 g/dL Albumin/Globulin Ratio 0.2 (1.0-2.7) L Test 08/30/19 17:37 POC Whole Blood Glucose 172 MG/DL (74-106) H Plan Problems: (1) Anemia (2) Hyponatremia (3) Leukocytosis Assessment & Plan: Tracheostomy, left chest pacemaker are again demonstrated. There is bilateral interstitial and airspace disease and bilateral pleural fluid again demonstrated. This appears more severe than on the prior study. Bilateral interstitial and airspace infiltrates versus edema. Bilateral pleural effusions Leukocytosis, anemia, tachycardia, abnormal labs. Wound evaluated and likely etiology of patient's sepsis. Leukocytosis etiology work-up antibiotics per infectious disease Appreciate nephrology input transfuse with dialysis We will follow with recommendations thank you allowing participation's care plan HD access temp HD discussed with medical teams line okay HD as per renal persistent leukocytosis flow cyto noted (4) Ventilator dependent (5) Right lower lobe pneumonia (6) Hypokalemia (7) Hyperkalemia (8) Anasarca (9) Decubitus skin ulcer Assessment & Plan: pt presented on admission with generalized edemae.Skin assessed under tracheostomy and no areas of concerns noted. GT Insertion is marginally erythematous with small amt slough at stoma. Unstageable Pressure Injury R elbow. Base of wound is 100% yellow slough, Borders are erythematous. Wound oozing small amt haemopurulent exudate.Darker skin tone without elevation in skin temp or erythema periwound. Pt's penis and scrotum are grossly edematous and enlarged and weeping serous exudate from numerous sites both from penis and scrotum. Two small open wounds noted at base of at base of shaft of penis ,and contreras aspect of scrotum. Both wounds oozing large amt sanguineous and serosanguineous exudate. Multiple open wounds with Biofilm at base of each wounds noted to contreras/lateral,inferior and posterior aspects of scrotum. These wounds noted to be oozing moderate amts of serosanguineous exudate. Hypertrophic scar with scattered areas of hyperpigmentation noted to Sacrum. DTPI noted to L Buttocks (L)7cm x (W)9cm. Base of wound is purple and indurated.Darker skin tone without erythema, induration or fluctuance R and L ischial tuberosities. Both heels are boggy with non-blanchable erythema. Tx.Plan: Cleanse wound R elbow with Saline. Apply TheraHoney, Apply Moisture Barrier Paste periwound. Cover with Optifoam drsg.Change Daily and prn. Wash GT site with soap and water.Pat dry. Apply Zinc Oxide Paste to GT site Daily. Leave Open to Air. Apply Zinc Oxide Paste to entire Scrotum, Place ABD pads to R and L lateral, and posterior aspects of scrotum TWICE daily. Apply Cavilon Skin Barrier to malleoli and both Heels. Cover each site with Optifoam drsgs. Change every 7 days and prn. Reposition at least every 2hours or as tolerated. Off-load heels with Pillows. APM/BECCA Mattress overlay. (10) Malnutrition Assessment & Plan: DAILY ESTIMATED NEEDS: Needs based on Renal, critical care, wound/ 61kg 22-30 kcals/kg [id number] total kcals 1.25-2 g protein/kg 76-122 g total protein Fluid per MD, now on HD NUTRITION DIAGNOSIS: * Swallowing difficulty R/T respiratory failure, dysphagia as evidenced by trach/vent dep, PEG dep * Increased kcal/prot needs R/T wound healing as evidenced by admitted w/ multiple pressure injuries including full thickness wounds at junction of Shaft of penis, dorsal scrotum, R elbow, and DTPI @ L buttocks. CURRENT TF:Nepro @ 45ml/hr x 24 hrs ENTERAL NUTRITION RECOMMENDATIONS: NEPRO @ 40ml/hr x 24 hrs to provide 960ml, 1728kcal , 78g prot, 697ml free water * Decrease goal rate to 40ml/hr x 24hrs -> meets 100% est kcal/prot needs * HOB over 30 degrees/ water flush per MD WITH CONTINUED DIARRHEA AND CONSISTENTLY LOW LYTES, consider TF change to carb controlled, elemental TF Vital AF 1.2-> rec goal rate of 55ml/hr x 24 hrs to provide 1320ml, 1584kcal, 99g prot, 1070ml free water, 2228mg K and 1114mg phos ADDITIONAL RECOMMENDATIONS: * Per SNF: HT=63" BS=716 lbs (Vs EMR wt of 166lbs) -> obtain re-calibrated bedscale wt, rec daily wt monitoring * Wound healing: continue Nephrovite x 1 and Garo BID Vit C dosing per Nephro * Monitor renal fxn and lytes-> pt now on HD rec checking f/up phos (0.9* on 08/21) * Add probiotics to help alleviate diarrhea (11) Uremia (12) CKD (chronic kidney disease) stage 5, GFR less than 15 ml/min (13) Colon distention Assessment & Plan: discussed with GI likely functional as having lots of loose bm rectal tube kub f/u Marked distention of the sigmoid colon. 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 No evidence of bowel wall thickening or pneumatosis 12 mm focus of contrast enhancement in the right pectineus muscle. While nonspecific in appearance, appearance raises concern for a possible pseudoaneurysm. Ill- defined thickening of the pectus medius muscle could indicate some intramuscular hemorrhage. The above findings were phoned to Dr. Urias at the time of interpretation Large bilateral pleural effusions Hazy pulmonary parenchymal opacities as well as dense consolidative opacities most likely represent pulmonary edema, but could represent pneumonia Evidence of anasarca elsewhere, with generalized edema of the subcutaneous fat Bladder wall thickening, raises concern for cystitis. Avalos catheter in place Colonic diverticulosis. No evidence of diverticulitis. Tracheostomy Pacemaker Gastrostomy Jonathan Urias Aug 30, 2019 20:34
--- NOTE | 2019-08-30 21:46 | General Progress Note ---
Assessment/Plan Assessment/Plan: Assessment - mucoid diarrhea with hypokalemia, ? Villous adenoma, ? inflammatory colitis, ? infection (C Diff (-) x 4) - sigmoid distention on CT - suspect functional - Anemia - leukocytosis - stool OB (+) - EGD --> gastritis, Colonoscopy --> not planned since done recently - Renal failure - Sepsis / leukocytosis - Anasarca - resp failure, trach - dysphagia, GT - encephalopathy, contracted - poor px Recommendations - colonoscopy in am - replace K - Iron panel noted - PPI - abx - supportive care Subjective Allergies: Coded Allergies: No Known Allergies (Unverified , 06/10/19) Subjective Above noted d/w RN ongoing diarrhea noted stool in rectal bag clear and mucoid Objective Last 24 Hour Vital Signs Date Time Temp Pulse Resp B/P (MAP) Pulse Ox O2 Delivery O2 Flow Rate FiO2 08/30/19 20:23 68 125/58 08/30/19 20:00 Mechanical Ventilator 08/30/19 20:00 65 08/30/19 20:00 97.7 63 16 125/58 (80) 98 08/30/19 20:00 24 08/30/19 18:43 66 15 24 08/30/19 16:00 120 08/30/19 16:00 24 08/30/19 16:00 100.2 108 25 152/74 (100) 100 08/30/19 16:00 Mechanical Ventilator 08/30/19 15:30 76 16 24 08/30/19 12:00 Mechanical Ventilator 08/30/19 12:00 24 08/30/19 12:00 97.9 78 15 131/61 (84) 100 08/30/19 11:42 79 08/30/19 10:54 79 6 100 Mechanical Ventilator 24 80 17 24 08/30/19 09:57 79 145/67 08/30/19 09:57 145/67 08/30/19 08:00 98.2 79 17 145/67 (93) 100 08/30/19 08:00 24 08/30/19 08:00 Mechanical Ventilator 08/30/19 07:56 80 08/30/19 07:14 78 18 24 08/30/19 04:00 Mechanical Ventilator 08/30/19 04:00 24 08/30/19 04:00 98.4 72 15 135/70 (91) 100 08/30/19 04:00 77 08/30/19 03:11 77 18 24 08/30/19 00:00 99.2 79 19 134/54 (80) 100 08/30/19 00:00 24 08/30/19 00:00 Mechanical Ventilator 08/30/19 00:00 77 08/29/19 23:00 76 16 100 Mechanical Ventilator 24 78 18 24 Intake and Output 08/29/19 08/30/19 19:00 07:00 Intake Total 690 ml 95 ml Output Total 1800 ml 100 ml Balance -1110 ml -5 ml Free Water 150 ml 50 ml Tube Feeding 540 ml 45 ml Output Urine Total 200 ml Stool Total 100 ml 100 ml Hemodialysis UF 1500 ml Laboratory Tests 08/29/19 23:44: POC Whole Blood Glucose 190H 08/30/19 03:45: White Blood Count 15.6H, Red Blood Count 3.30L, Hemoglobin 8.8L, Hematocrit 28.1L, Mean Corpuscular Volume 85, Mean Corpuscular Hemoglobin 26.5L, Mean Corpuscular Hemoglobin Concent 31.2L, Red Cell Distribution Width 16.4H, Platelet Count 613H, Mean Platelet Volume 6.6, Neutrophils (%) (Auto) 74.1, Lymphocytes (%) (Auto) 11.2L, Monocytes (%) (Auto) 8.9, Eosinophils (%) (Auto) 4.4H, Basophils (%) (Auto) 1.3, Prothrombin Time 13.8H, Prothromb Time International Ratio 1.3H, Activated Partial Thromboplast Time 31, Sodium Level 139, Potassium Level 3.2L, Chloride Level 100, Carbon Dioxide Level 33H, Anion Gap 7, Blood Urea Nitrogen 48H, Creatinine 1.9H, Estimat Glomerular Filtration Rate 34.5, Glucose Level 157H, Lactic Acid Level 0.60, Calcium Level 9.0, Total Bilirubin 0.3, Aspartate Amino Transf (AST/SGOT) 44H, Alanine Aminotransferase ( ALT/SGPT) 34, Alkaline Phosphatase 299H, Total Protein 7.6, Albumin 1.3L, Globulin 6.3, Albumin/Globulin Ratio 0.2L 08/30/19 05:12: POC Whole Blood Glucose 157H 08/30/19 11:23: POC Whole Blood Glucose [Pending] 08/30/19 17:37: POC Whole Blood Glucose 172H Height (Feet): 6 Height (Inches): 7 Weight (Pounds): 165 Objective Debilitated AA man NCAT (+) trach coarse BS RR abd distended, anasarca, (+) GT ext (+) edema contracted Ronny Mustafa MD Aug 30, 2019 21:46
[2019-08-31] VITALS: BP 154/88
[2019-08-31 04:00] VITALS: BP 156/75
[2019-08-31 05:00] LABS: BASOPHILS % (AUTO) 1.4 % (0.0-2.0); EOSINOPHILS % (AUTO) 3.3 % (0.0-3.0); HEMOGLOBIN 9.9 G/DL (14.2-18.0); LYMPHOCYTES % (AUTO) 13.1 % (20.0-45.0); MEAN CORPUSCULAR VOLUME 85 FL (80-99); MONOCYTES % (AUTO) 9.2 % (1.0-10.0); NEUTROPHILS % (AUTO) 72.9 % (45.0-75.0); PLATELET COUNT 649 K/UL (150-450); RED BLOOD COUNT 3.75 M/UL (4.70-6.10); RED CELL DISTRIBUTION WIDTH 16.9 % (11.6-14.8); WHITE BLOOD COUNT 14.2 K/UL (4.8-10.8)
[2019-08-31 05:28] LABS: ANION GAP 8 mmol/L (5-15); BLOOD UREA NITROGEN 52 mg/dL (7-18); CALCIUM 8.7 MG/DL (8.5-10.1); CARBON DIOXIDE 29 MMOL/L (21-32); CHLORIDE 100 MMOL/L (98-107); CREATININE 2.2 MG/DL (0.55-1.30); PHOSPHORUS 1.5 MG/DL (2.5-4.9); POTASSIUM 4.1 MMOL/L (3.5-5.1); SODIUM 137 MMOL/L (136-145)
[2019-08-31] MEDS: NovoLOG Insulin Flexpen SUBQ SCH ×4 (05:40→17:15)
[2019-08-31] MEDS ORDERED: Heparin Sod 1000 units/ml 10ml IV PRN (06:00)
[2019-08-31] MEDS ORDERED: Heparin 1000 units/ml 1ml Vial INJ PRN (06:00)
--- NOTE | 2019-08-31 06:25 | Hematology/Onc Progress Note ---
Assessment/Plan Assessment/Plan Assessment/recs # Leukocytosis - with multiple infections, VRE UTI, flow is negative --> wbc trend 33-->28-->25->23->22->23->24->17.3-->17-->14->16-->15.6-->14 --> on abx, linezolid and zosyn--> zosyn-->off --> + blood cultures with coag neg staph likely contaminated --> as per id recs --> has ordered a flow cytometry (with pathology) --> does show increased nK cell activity --> JOURDAN 2 and bcr-abl labs ordered (these are send outs) --> plt 585-->613-->649 # Anemia due to chronic disease/kidney disease as well, gi bleed + occult + noted --> was on iron in the past, now on hold --> has been started on Epogen sq --> as per renal care --> egd done and shows gastritis --> on ppi --> egd showed gastritis, colo recently done --> hgb 9-->8.7-->7.6-->9.2-->8.9-->9.2->9.3-->8.8->9.9 # Respiratory failure --> per pulm, s/p trach --> COVID 19 test negative x 2 # Dysphagia s/p gtube with nepro --> per gi # ESRD with r fem julito --> hd as per renal # Dvt ppx scds Appreciate consultation and dw Rn Subjective Constitutional: Denies: no symptoms, chills, fever, malaise, weakness, other HEENT: Denies: no symptoms, eye pain, blurred vision, tearing, double vision, ear pain, ear discharge, nose pain, nose congestion, throat pain, throat swelling, mouth pain, mouth swelling, other Cardiovascular: Denies: no symptoms, chest pain, edema, irregular heart rate, lightheadedness, palpitations, syncope, other Respiratory: Denies: no symptoms, cough, shortness of breath, SOB with excertion, SOB at rest, sputum, wheezing, other Gastrointestinal/Abdominal: Denies: no symptoms, abdomen distended, abdominal pain, black stools, tarry stools, blood in stool, constipated, diarrhea, difficulty swallowing, nausea, poor appetite, poor fluid intake, rectal bleeding , vomiting, other Genitourinary: Denies: no symptoms, burning, discharge, frequency, flank pain, hematuria, incontinence, pain, urgency, other Neurologic/Psychiatric: Denies: no symptoms, anxiety, depressed, emotional problems, headache, numbness, paresthesia, pre-existing deficit, seizure, tingling, tremors, weakness, other Endocrine: Denies: no symptoms, excessive sweating, flushing, intolerance to cold, intolerance to heat, increased hunger, increased thirst, increased urine, unexplained weight gain, unexplained weight loss, other Allergies: Coded Allergies: No Known Allergies (Unverified , 06/10/19) Subjective 08/15 meds noted, no bleeding, hgb 8.8, wbc 28, path flow pending 08/16 flow pending dw pathologist, results pending, wbc 25, hgb 9 08/17 labs reviewed, meds reviewed, meds noted, no night sweats 08/19 remains obtunded, on vent/trach, no bleeding wbc 21.7 08/20 labs have been reviewed, no bleeding, wbc still elev, path reviewed 08/21 labs are noted, no bleeding, on vent, wbc better 08/22 labs noted, no bleeding, meds reviewed, wbc 24 hgb 7.6 08/23 vent, off abx, c diff negative, h/h stable 08/24 labs reviewed, on abx, wbc 17, hgb 8.9, no hemolysis 08/26 reviewed flow and is negative for leukemia, matt rn 08/27 meds reviewed, no night sweats, matt rn, no major bleeding 08/28 meds reivewed, labs noted 08/29 wbc is stable, approx 15, hgb 8.8, no hemolysis 08/30 labs are noted, is for colo today, hgb 9.9 Objective Objective Current Medications Medications (Trade) Dose Ordered Sig/Leonel Route PRN Reason Start Time Stop Time Status Last Admin Dose Admin Acetaminophen (Tylenol) 650 mg Q4H PRN GT Mild Pain / fever 08/09/19 05:30 09/08/19 05:29 08/26/19 21:44 Al Hydroxide/Mg Hydroxide (Mylanta) 30 ml FOUR TIMES A DAY PRN GT constipation 08/09/19 06:00 09/08/19 05:29 Ascorbic Acid (Vitamin C) 500 mg DAILY GT 08/09/19 09:00 09/08/19 08:59 08/30/19 09:58 Atorvastatin Calcium (Lipitor) 40 mg BEDTIME GT 08/09/19 21:00 11/07/19 20:59 08/30/19 20:23 Cefepime HCl 1 gm/ Sodium Chloride 55 ml @ 110 mls/hr Q24H IVPB 08/31/19 09:00 09/07/19 08:59 Chlorhexidine Gluconate (Felipa-Hex 2%) 1 applic DAILY@2000 TOPIC 08/15/19 20:00 11/13/19 19:59 08/30/19 20:23 Clonidine HCl (Catapres Tab) 0.1 mg Q4H PRN GT SBP>150 08/12/19 10:45 11/10/19 06:44 08/27/19 04:39 Colistimethate Sodium (Colistin *inhalation use only*) 75 mg Q12HRT INH 08/27/19 11:00 09/03/19 10:59 08/30/19 22:30 Dextrose 1,000 ml @ 50 mls/hr Q20H IV 08/30/19 14:09 09/29/19 14:08 08/30/19 14:47 Dextrose (Dextrose 50%) 25 ml Q30M PRN IV Hypoglycemia 08/09/19 07:30 11/07/19 07:29 Dextrose (Dextrose 50%) 50 ml Q30M PRN IV Hypoglycemia 08/09/19 07:30 11/07/19 07:29 Epoetin Andreas (Epoetin Andreas(ESRD on dialysis)) 10,000 unit WED-WED-WED SUBQ 08/18/19 21:00 11/16/19 20:59 08/30/19 20:23 Famotidine (Pepcid) 20 mg DAILY GT 08/30/19 09:00 11/28/19 08:59 08/30/19 09:57 Heparin Sodium (Porcine) (Heparin Sod 1000 units/ml 10ml) 500 unit ONCE PRN IV dialysis use 08/31/19 06:00 08/31/19 23:59 Heparin Sodium (Porcine) (Heparin) 1,000 unit POSTHD PRN INJ dialysis use 08/31/19 06:00 08/31/19 23:59 Insulin Aspart (NovoLOG) Q6HR SUBQ 08/10/19 00:00 11/07/19 11:29 08/30/19 18:24 Loperamide HCl (Imodium) 2 mg Q4H PRN GT Diarrhea 08/09/19 08:00 09/08/19 07:59 08/29/19 08:56 Metoprolol Tartrate (Lopressor) 200 mg Q12HR GT 08/09/19 09:00 11/07/19 08:59 08/30/19 20:23 Minoxidil (Loniten) 5 mg DAILY GT 08/09/19 09:00 11/07/19 08:59 08/30/19 09:57 Multivitamins (Multivitamins W/ Minerals 15ml Liquid) 15 ml DAILY GT 08/09/19 09:00 09/08/19 08:59 08/30/19 09:58 Sodium Chloride 1,000 ml @ 500 mls/hr Q2H PRN IVLG sbp<90 during hd 08/31/19 06:00 08/31/19 23:59 Vitamin B Complex/ Vit C/Folic Acid (Nephrovite) 1 tab DAILY GT 08/09/19 09:00 09/08/19 08:59 08/30/19 09:58 Vitamin D (Vitamin D) 1,000 intlu DAILY GT 08/09/19 09:00 09/08/19 08:59 08/30/19 09:57 Zinc Oxide (Zinc Oxide) 1 applic BID TOPIC 08/10/19 18:00 11/08/19 17:59 08/30/19 18:24 Last 24 Hour Vital Signs Date Time Temp Pulse Resp B/P (MAP) Pulse Ox O2 Delivery O2 Flow Rate FiO2 08/31/19 04:00 24 08/31/19 04:00 98.8 98 20 156/75 (102) 99 08/31/19 04:00 75 08/31/19 04:00 Mechanical Ventilator 08/31/19 02:39 74 18 24 08/31/19 00:00 Mechanical Ventilator 08/31/19 00:00 70 08/31/19 00:00 97.8 75 20 154/88 (110) 99 08/30/19 22:30 68 17 100 Mechanical Ventilator 24 73 15 24 08/30/19 20:23 68 125/58 08/30/19 20:00 Mechanical Ventilator 08/30/19 20:00 65 08/30/19 20:00 97.7 63 16 125/58 (80) 98 08/30/19 20:00 24 08/30/19 18:43 66 15 24 08/30/19 16:00 120 08/30/19 16:00 24 08/30/19 16:00 100.2 108 25 152/74 (100) 100 08/30/19 16:00 Mechanical Ventilator 08/30/19 15:30 76 16 24 08/30/19 12:00 Mechanical Ventilator 08/30/19 12:00 24 08/30/19 12:00 97.9 78 15 131/61 (84) 100 08/30/19 11:42 79 08/30/19 10:54 79 6 100 Mechanical Ventilator 24 80 17 24 08/30/19 09:57 79 145/67 08/30/19 09:57 145/67 08/30/19 08:00 98.2 79 17 145/67 (93) 100 08/30/19 08:00 24 08/30/19 08:00 Mechanical Ventilator 08/30/19 07:56 80 08/30/19 07:14 78 18 24 08/30/19 04:00 Mechanical Ventilator 08/30/19 04:00 24 08/30/19 04:00 98.4 72 15 135/70 (91) 100 08/30/19 04:00 77 08/30/19 03:11 77 18 24 08/30/19 00:00 99.2 79 19 134/54 (80) 100 08/30/19 00:00 24 08/30/19 00:00 Mechanical Ventilator 08/30/19 00:00 77 08/29/19 23:00 76 16 100 Mechanical Ventilator 24 78 18 24 08/29/19 20:07 87 144/61 08/29/19 20:00 24 08/29/19 20:00 86 08/29/19 20:00 Mechanical Ventilator 08/29/19 20:00 98.8 89 24 144/61 (88) 99 08/29/19 19:21 87 22 24 08/29/19 16:52 84 08/29/19 16:00 Mechanical Ventilator 08/29/19 16:00 98.0 84 18 148/63 (91) 100 08/29/19 16:00 24 08/29/19 15:26 84 19 24 08/29/19 12:00 Mechanical Ventilator 08/29/19 12:00 98.7 80 18 134/58 (83) 100 08/29/19 12:00 24 08/29/19 12:00 84 08/29/19 11:08 83 22 24 08/29/19 09:21 72 08/29/19 09:06 72 18 100 Mechanical Ventilator 24 72 20 24 08/29/19 08:54 72 136/58 08/29/19 08:54 136/58 08/29/19 08:00 Mechanical Ventilator 08/29/19 08:00 97.4 71 20 132/76 (94) 100 08/29/19 08:00 24 08/29/19 06:55 71 19 24 Intake and Output 08/30/19 08/31/19 19:00 07:00 Intake Total 2160 ml 2420 ml Output Total 1000 ml 1800 ml Balance 1160 ml 620 ml Free Water 90 ml IV Total 150 ml 500 ml Tube Feeding 0 ml Other 1920 ml 1920 ml Output Urine Total 1000 ml Stool Total 1800 ml # Voids 1 # Bowel Movements 50 Labs Test 08/28/19 08:10 08/28/19 11:59 08/28/19 17:41 08/29/19 04:20 White Blood Count 14.4 K/UL (4.8-10.8) 15.9 K/UL (4.8-10.8) Red Blood Count 3.46 M/UL (4.70-6.10) 3.31 M/UL (4.70-6.10) Hemoglobin 9.3 G/DL (14.2-18.0) 8.8 G/DL (14.2-18.0) Hematocrit 29.5 % (42.0-52.0) 28.0 % (42.0-52.0) Mean Corpuscular Volume 85 FL (80-99) 84 FL (80-99) Mean Corpuscular Hemoglobin 27.0 PG (27.0-31.0) 26.6 PG (27.0-31.0) Mean Corpuscular Hemoglobin Concent 31.6 G/DL (32.0-36.0) 31.5 G/DL (32.0-36.0) Red Cell Distribution Width 16.3 % (11.6-14.8) 16.1 % (11.6-14.8) Platelet Count 511 K/UL (150-450) 585 K/UL (150-450) Mean Platelet Volume 6.5 FL (6.5-10.1) 6.3 FL (6.5-10.1) Neutrophils (%) (Auto) 70.4 % (45.0-75.0) 71.4 % (45.0-75.0) Lymphocytes (%) (Auto) 13.1 % (20.0-45.0) 14.2 % (20.0-45.0) Monocytes (%) (Auto) 8.9 % (1.0-10.0) 8.1 % (1.0-10.0) Eosinophils (%) (Auto) 6.4 % (0.0-3.0) 5.5 % (0.0-3.0) Basophils (%) (Auto) 1.2 % (0.0-2.0) 0.8 % (0.0-2.0) Sodium Level 139 MMOL/L (136-145) 138 MMOL/L (136-145) Potassium Level 2.5 MMOL/L (3.5-5.1) 2.5 MMOL/L (3.5-5.1) Chloride Level 102 MMOL/L (98-107) 100 MMOL/L (98-107) Carbon Dioxide Level 31 MMOL/L (21-32) 30 MMOL/L (21-32) Anion Gap 5 mmol/L (5-15) 8 mmol/L (5-15) Blood Urea Nitrogen 68 mg/dL (7-18) 80 mg/dL (7-18) Creatinine 2.5 MG/DL (0.55-1.30) 2.7 MG/DL (0.55-1.30) Estimat Glomerular Filtration Rate 25.1 mL/min (>60) 23.0 mL/min (>60) Glucose Level 163 MG/DL (74-106) 167 MG/DL (74-106) Calcium Level 9.1 MG/DL (8.5-10.1) 8.9 MG/DL (8.5-10.1) Total Bilirubin 0.3 MG/DL (0.2-1.0) Aspartate Amino Transf (AST/SGOT) 46 U/L (15-37) Alanine Aminotransferase (ALT/SGPT) 29 U/L (12-78) Alkaline Phosphatase 324 U/L (46-116) Total Protein 7.5 G/DL (6.4-8.2) Albumin 1.3 G/DL (3.4-5.0) Globulin 6.2 g/dL Albumin/Globulin Ratio 0.2 (1.0-2.7) TB Test (T-Spot) Negative (NEGATIVE) TB Test Nil Control (T-Spot) 0 TB Test Panel A (T-Spot) 1 TB Test Panel B (T-Spot) 0 TB Test Positive Control (T-Spot) 0 POC Whole Blood Glucose 209 MG/DL (74-106) Test 08/29/19 11:27 08/29/19 17:09 08/29/19 23:44 08/30/19 03:45 POC Whole Blood Glucose 159 MG/DL (74-106) 202 MG/DL (74-106) 190 MG/DL (74-106) White Blood Count 15.6 K/UL (4.8-10.8) Red Blood Count 3.30 M/UL (4.70-6.10) Hemoglobin 8.8 G/DL (14.2-18.0) Hematocrit 28.1 % (42.0-52.0) Mean Corpuscular Volume 85 FL (80-99) Mean Corpuscular Hemoglobin 26.5 PG (27.0-31.0) Mean Corpuscular Hemoglobin Concent 31.2 G/DL (32.0-36.0) Red Cell Distribution Width 16.4 % (11.6-14.8) Platelet Count 613 K/UL (150-450) Mean Platelet Volume 6.6 FL (6.5-10.1) Neutrophils (%) (Auto) 74.1 % (45.0-75.0) Lymphocytes (%) (Auto) 11.2 % (20.0-45.0) Monocytes (%) (Auto) 8.9 % (1.0-10.0) Eosinophils (%) (Auto) 4.4 % (0.0-3.0) Basophils (%) (Auto) 1.3 % (0.0-2.0) Prothrombin Time 13.8 SEC (9.30-11.50) Prothromb Time International Ratio 1.3 (0.9-1.1) Activated Partial Thromboplast Time 31 SEC (23-33) Sodium Level 139 MMOL/L (136-145) Potassium Level 3.2 MMOL/L (3.5-5.1) Chloride Level 100 MMOL/L (98-107) Carbon Dioxide Level 33 MMOL/L (21-32) Anion Gap 7 mmol/L (5-15) Blood Urea Nitrogen 48 mg/dL (7-18) Creatinine 1.9 MG/DL (0.55-1.30) Estimat Glomerular Filtration Rate 34.5 mL/min (>60) Glucose Level 157 MG/DL (74-106) Lactic Acid Level 0.60 mmol/L (0.4-2.0) Calcium Level 9.0 MG/DL (8.5-10.1) Total Bilirubin 0.3 MG/DL (0.2-1.0) Aspartate Amino Transf (AST/SGOT) 44 U/L (15-37) Alanine Aminotransferase (ALT/SGPT) 34 U/L (12-78) Alkaline Phosphatase 299 U/L (46-116) Total Protein 7.6 G/DL (6.4-8.2) Albumin 1.3 G/DL (3.4-5.0) Globulin 6.3 g/dL Albumin/Globulin Ratio 0.2 (1.0-2.7) Test 08/30/19 05:12 08/30/19 11:23 08/30/19 17:37 08/30/19 23:55 POC Whole Blood Glucose 157 MG/DL (74-106) 172 MG/DL (74-106) 138 MG/DL (74-106) Test 08/31/19 03:35 08/31/19 05:20 White Blood Count 14.2 K/UL (4.8-10.8) Red Blood Count 3.75 M/UL (4.70-6.10) Hemoglobin 9.9 G/DL (14.2-18.0) Hematocrit 32.0 % (42.0-52.0) Mean Corpuscular Volume 85 FL (80-99) Mean Corpuscular Hemoglobin 26.4 PG (27.0-31.0) Mean Corpuscular Hemoglobin Concent 31.0 G/DL (32.0-36.0) Red Cell Distribution Width 16.9 % (11.6-14.8) Platelet Count 649 K/UL (150-450) Mean Platelet Volume 6.3 FL (6.5-10.1) Neutrophils (%) (Auto) 72.9 % (45.0-75.0) Lymphocytes (%) (Auto) 13.1 % (20.0-45.0) Monocytes (%) (Auto) 9.2 % (1.0-10.0) Eosinophils (%) (Auto) 3.3 % (0.0-3.0) Basophils (%) (Auto) 1.4 % (0.0-2.0) Sodium Level 137 MMOL/L (136-145) Potassium Level 4.1 MMOL/L (3.5-5.1) Chloride Level 100 MMOL/L (98-107) Carbon Dioxide Level 29 MMOL/L (21-32) Anion Gap 8 mmol/L (5-15) Blood Urea Nitrogen 52 mg/dL (7-18) Creatinine 2.2 MG/DL (0.55-1.30) Estimat Glomerular Filtration Rate 29.1 mL/min (>60) Glucose Level 150 MG/DL (74-106) Calcium Level 8.7 MG/DL (8.5-10.1) Phosphorus Level 1.5 MG/DL (2.5-4.9) POC Whole Blood Glucose 152 MG/DL (74-106) Height (Feet): 6 Height (Inches): 7 Weight (Pounds): 165 Objective Physical Exam General Appearance: nad, Chronically Ill Head: normocephalic Eyes: right eye PERRL - Will not open left eye ENT: moist mucus membranes Neck: other - submandibular mass R, fairly rigid with resistance to rotation to L, tracheotomy Respiratory: decreased breath sounds, crackles, other - pacemaker, vent+ Cardiovascular: regular rate, rhythm, edema - anasarca Gastrointestinal: non tender, distended, other - G tube Genitourinary: other Musculoskeletal: other - Contractures all extremities Neurologic: sensory intact, motor weakness, responsive Psychiatric: other Skin: Decubitus/Ulcer - Stage III right elbow, stage III left elbow, stage II sacrum, stage III scrotum, warm/dry Fitz Campos MD Aug 31, 2019 06:25
[2019-08-31] MEDS ORDERED: NS 500ML IVPB ONE (07:10)
--- NOTE | 2019-08-31 07:10 | General Progress Note ---
Assessment/Plan Assessment/Plan: Assessment - colonoscopy negative to hepatic flexure - abnormal LFT - Anemia - leukocytosis - stool OB (+) - EGD --> gastritis - Renal failure - Sepsis / leukocytosis - Anasarca - resp failure, trach - dysphagia, GT - encephalopathy, contracted - poor px Recommendations - restart TF - check GGT - f/u Biopsies of colon - PPI - abx - supportive care Subjective Allergies: Coded Allergies: No Known Allergies (Unverified , 06/10/19) Subjective Above noted d/w RN NPO for colonoscopy Objective Last 24 Hour Vital Signs Date Time Temp Pulse Resp B/P (MAP) Pulse Ox O2 Delivery O2 Flow Rate FiO2 08/31/19 04:00 24 08/31/19 04:00 98.8 98 20 156/75 (102) 99 08/31/19 04:00 75 08/31/19 04:00 Mechanical Ventilator 08/31/19 02:39 74 18 24 08/31/19 00:00 Mechanical Ventilator 08/31/19 00:00 70 08/31/19 00:00 97.8 75 20 154/88 (110) 99 08/30/19 22:30 68 17 100 Mechanical Ventilator 24 73 15 24 08/30/19 20:23 68 125/58 08/30/19 20:00 Mechanical Ventilator 08/30/19 20:00 65 08/30/19 20:00 97.7 63 16 125/58 (80) 98 08/30/19 20:00 24 08/30/19 18:43 66 15 24 08/30/19 16:00 120 08/30/19 16:00 24 08/30/19 16:00 100.2 108 25 152/74 (100) 100 08/30/19 16:00 Mechanical Ventilator 08/30/19 15:30 76 16 24 08/30/19 12:00 Mechanical Ventilator 08/30/19 12:00 24 08/30/19 12:00 97.9 78 15 131/61 (84) 100 08/30/19 11:42 79 08/30/19 10:54 79 6 100 Mechanical Ventilator 24 80 17 24 08/30/19 09:57 79 145/67 08/30/19 09:57 145/67 08/30/19 08:00 98.2 79 17 145/67 (93) 100 08/30/19 08:00 24 08/30/19 08:00 Mechanical Ventilator 08/30/19 07:56 80 08/30/19 07:14 78 18 24 Intake and Output 08/30/19 08/31/19 19:00 07:00 Intake Total 2160 ml 2420 ml Output Total 1000 ml 1800 ml Balance 1160 ml 620 ml Free Water 90 ml IV Total 150 ml 500 ml Tube Feeding 0 ml Other 1920 ml 1920 ml Output Urine Total 1000 ml Stool Total 1800 ml # Voids 1 # Bowel Movements 50 Laboratory Tests 08/30/19 11:23: POC Whole Blood Glucose [Pending] 08/30/19 17:37: POC Whole Blood Glucose 172H 08/30/19 23:55: POC Whole Blood Glucose 138H 08/31/19 03:35: White Blood Count 14.2H, Red Blood Count 3.75L, Hemoglobin 9.9L, Hematocrit 32.0L, Mean Corpuscular Volume 85, Mean Corpuscular Hemoglobin 26.4L, Mean Corpuscular Hemoglobin Concent 31.0L, Red Cell Distribution Width 16.9H, Platelet Count 649H, Mean Platelet Volume 6.3L, Neutrophils (%) (Auto) 72.9, Lymphocytes (%) (Auto) 13.1L, Monocytes (%) (Auto) 9.2, Eosinophils (%) (Auto) 3.3H, Basophils (%) (Auto) 1.4, Sodium Level 137, Potassium Level 4.1, Chloride Level 100, Carbon Dioxide Level 29, Anion Gap 8, Blood Urea Nitrogen 52H, Creatinine 2.2H, Estimat Glomerular Filtration Rate 29.1, Glucose Level 150H, Calcium Level 8.7, Phosphorus Level 1.5L 08/31/19 05:20: POC Whole Blood Glucose 152H Height (Feet): 5 Height (Inches): 10.00 Weight (Pounds): 165 Objective Debilitated AA man NCAT (+) trach coarse BS RR abd distended, anasarca, (+) GT ext (+) edema contracted Ronny Mustafa MD Aug 31, 2019 07:10
--- NOTE | 2019-08-31 07:10 | NUR ---
NURSE NOTES: received patient report from terrie wright. patient is on bed awake. colonoscopy is being done today with dr bahena. Vpacing on the monitor. not in acute distress. on vent at prescribed rate. will follow plan of care.
--- NOTE | 2019-08-31 07:11 | Pre-Procedure Note/Attestation ---
Pre-Procedure Note/Attestation Complete Prior to Procedure Planned Procedure: not applicable Procedure Narrative: colonoscopy Indications for Procedure Pre-Operative Diagnosis: GIB, diarrhea Attestation I attest that I discussed the nature of the procedure; its benefits; risks and complications; and alternatives (and the risks and benefits of such alternatives ), prior to the procedure, with the patient (or the patient's legal mortician supplies sales representative). I attest that, if there was a reasonable possibility of needing a blood transfusion, the patient (or the patient's legal mortician supplies sales representative) was given the [facility] standardized written summary, pursuant to the Jim Kait Blood Safety Act ([place] Health and Safety Code # 1645, as amended). I attest that I re-evaluated the patient just prior to the surgery and that there has been no change in the patient's H&P, except as documented below: Ronny Mustafa MD Aug 31, 2019 07:11
--- NOTE | 2019-08-31 07:30 | NUR ---
HAND-OFF: Report given to TAMICA Olvera.
[2019-08-31 08:00] VITALS: BP 157/76
--- NOTE | 2019-08-31 08:02 | General Progress Note ---
Assessment/Plan Assessment/Plan: IMPRESSION: 1. anemia. 2. GI bleed. 3. Leukocytosis. 4. Probable sepsis. + BCX 5. Acute on chronic renal failure. 6. Hyponatremia. 7. Severe protein-calorie malnutrition. 8. Significantly elevated C-reactive protein concerning for infectious etiology. 9. Tracheostomy, G-tube. 10. Ventilator dependence. 11. anasarca with bilateral pleural effusion 12. Hematuria PLAN needs placement care noted on vent surgical follow up monitor labs rate control monitor renal function: HD prognosis poor impression, plan, and exam edited and reviewed in detail care discussed with RN Subjective Allergies: Coded Allergies: No Known Allergies (Unverified , 06/10/19) Subjective remains ill on vent on HD Objective Last 24 Hour Vital Signs Date Time Temp Pulse Resp B/P (MAP) Pulse Ox O2 Delivery O2 Flow Rate FiO2 08/31/19 04:00 24 08/31/19 04:00 98.8 98 20 156/75 (102) 99 08/31/19 04:00 75 08/31/19 04:00 Mechanical Ventilator 08/31/19 02:39 74 18 24 08/31/19 00:00 Mechanical Ventilator 08/31/19 00:00 70 08/31/19 00:00 97.8 75 20 154/88 (110) 99 08/30/19 22:30 68 17 100 Mechanical Ventilator 24 73 15 24 08/30/19 20:23 68 125/58 08/30/19 20:00 Mechanical Ventilator 08/30/19 20:00 65 08/30/19 20:00 97.7 63 16 125/58 (80) 98 08/30/19 20:00 24 08/30/19 18:43 66 15 24 08/30/19 16:00 120 08/30/19 16:00 24 08/30/19 16:00 100.2 108 25 152/74 (100) 100 08/30/19 16:00 Mechanical Ventilator 08/30/19 15:30 76 16 24 08/30/19 12:00 Mechanical Ventilator 08/30/19 12:00 24 08/30/19 12:00 97.9 78 15 131/61 (84) 100 08/30/19 11:42 79 08/30/19 10:54 79 6 100 Mechanical Ventilator 24 80 17 24 08/30/19 09:57 79 145/67 08/30/19 09:57 145/67 Intake and Output 08/30/19 08/31/19 19:00 07:00 Intake Total 2160 ml 2420 ml Output Total 1000 ml 1800 ml Balance 1160 ml 620 ml Free Water 90 ml IV Total 150 ml 500 ml Tube Feeding 0 ml Other 1920 ml 1920 ml Output Urine Total 1000 ml Stool Total 1800 ml # Voids 1 # Bowel Movements 50 Laboratory Tests 08/30/19 11:23: POC Whole Blood Glucose [Pending] 08/30/19 17:37: POC Whole Blood Glucose 172H 08/30/19 23:55: POC Whole Blood Glucose 138H 08/31/19 03:35: White Blood Count 14.2H, Red Blood Count 3.75L, Hemoglobin 9.9L, Hematocrit 32.0L, Mean Corpuscular Volume 85, Mean Corpuscular Hemoglobin 26.4L, Mean Corpuscular Hemoglobin Concent 31.0L, Red Cell Distribution Width 16.9H, Platelet Count 649H, Mean Platelet Volume 6.3L, Neutrophils (%) (Auto) 72.9, Lymphocytes (%) (Auto) 13.1L, Monocytes (%) (Auto) 9.2, Eosinophils (%) (Auto) 3.3H, Basophils (%) (Auto) 1.4, Sodium Level 137, Potassium Level 4.1, Chloride Level 100, Carbon Dioxide Level 29, Anion Gap 8, Blood Urea Nitrogen 52H, Creatinine 2.2H, Estimat Glomerular Filtration Rate 29.1, Glucose Level 150H, Calcium Level 8.7, Phosphorus Level 1.5L 08/31/19 05:20: POC Whole Blood Glucose 152H Height (Feet): 5 Height (Inches): 10.00 Weight (Pounds): 165 Objective GENERAL: Ill-appearing male, chronically debilitated. HEENT: Tracheostomy in midline. Questionable fullness in the submandibular region. LUNGS: Coarse breath sounds. reduced breath sounds CARDIAC: S1, S2. Regular rate and rhythm. ABDOMEN: Soft. G-tube. EXTREMITIES: With noted edema. NEUROLOGICAL: Poorly responsive, weak diffusely. Kain Ramirez MD Aug 31, 2019 08:02
--- NOTE | 2019-08-31 08:12 | Anethesia Preoperative Eval ---
Anesthesia Pre-op PMH/ROS General Date of Evaluation: Aug 31, 2019 Time of Evaluation: 07:00 Anesthesiologist: joan ASA Score: ASA 4 Mallampati Score Class I : Soft palate, uvula, fauces, pillars visible Class II: Soft palate, uvula, fauces visible Class III: Soft palate, base of uvula visible Class IV: Only hard plate visible Mallampati Classification: Class II Surgeon: dominic Diagnosis: anemia Surgical Procedure: Colonoscopy Anesthesia History: none Family History: no anesthesia problems Allergies: Coded Allergies: No Known Allergies (Unverified , 06/10/19) Medications: see eMAR Patient NPO?: Yes NPO Date: Aug 31, 2019 NPO Time: 00:01 Past Medical History Cardiovascular: Reports: HTN, CAD Pulmonary: Reports: other - resp failure s/p covid/tracheostmy; Denies: asthma, COPD, DIMITRI Gastrointestinal/Genitourinary: Reports: GERD, CRI, ESRD, other - [place] Neurologic/Psychiatric: Reports: dementia - nonverbal' artifically ventilated; , other Hematology/Immune: Reports: anemia; Denies: DVT, bleeding disorder, other Musculoskeletal/Integumentary: Denies: OA, RA, DJD, DDD, edema, other PMH Narrative: see H&P PSxH Narrative: EGD? Anesthesia Pre-op Phys. Exam Physician Exam Last Vital Signs Date Time Temp Pulse Resp B/P (MAP) Pulse Ox O2 Delivery O2 Flow Rate FiO2 08/31/19 08:00 24 08/31/19 04:00 98.8 98 20 156/75 (102) 99 08/31/19 04:00 Mechanical Ventilator Constitutional: other - Anemia; artifically ventilated Neurologic: other - non verbal; disoriented Cardiovascular: RRR Respiratory: other - ronchi Gastrointestinal: S/NT/ND Airway Exam Mallampati Classification 2 Mallampati Score: Class II MO: limited Dentures: no upper, no lower Anesthesia Pre-op A/P Labs Hematology Test 08/31/19 03:35 White Blood Count 14.2 K/UL (4.8-10.8) H Red Blood Count 3.75 M/UL (4.70-6.10) L Hemoglobin 9.9 G/DL (14.2-18.0) L Hematocrit 32.0 % (42.0-52.0) L Mean Corpuscular Volume 85 FL (80-99) Mean Corpuscular Hemoglobin 26.4 PG (27.0-31.0) L Mean Corpuscular Hemoglobin Concent 31.0 G/DL (32.0-36.0) L Red Cell Distribution Width 16.9 % (11.6-14.8) H Platelet Count 649 K/UL (150-450) H Mean Platelet Volume 6.3 FL (6.5-10.1) L Neutrophils (%) (Auto) 72.9 % (45.0-75.0) Lymphocytes (%) (Auto) 13.1 % (20.0-45.0) L Monocytes (%) (Auto) 9.2 % (1.0-10.0) Eosinophils (%) (Auto) 3.3 % (0.0-3.0) H Basophils (%) (Auto) 1.4 % (0.0-2.0) Chemistry Test 08/30/19 11:23 08/30/19 17:37 08/30/19 23:55 08/31/19 03:35 POC Whole Blood Glucose Pending 172 MG/DL (74-106) H 138 MG/DL (74-106) H Sodium Level 137 MMOL/L (136-145) Potassium Level 4.1 MMOL/L (3.5-5.1) Chloride Level 100 MMOL/L (98-107) Carbon Dioxide Level 29 MMOL/L (21-32) Anion Gap 8 mmol/L (5-15) Blood Urea Nitrogen 52 mg/dL (7-18) H Creatinine 2.2 MG/DL (0.55-1.30) H Estimat Glomerular Filtration Rate 29.1 mL/min (>60) Glucose Level 150 MG/DL (74-106) H Calcium Level 8.7 MG/DL (8.5-10.1) Phosphorus Level 1.5 MG/DL (2.5-4.9) L Test 08/31/19 05:20 POC Whole Blood Glucose 152 MG/DL (74-106) H Studies Pre-op Studies: EKG - SR Risk Assessment & Plan Assessment: no changes 24 hours Plan: mac at bedside with full precautions Status Change Before Surgery: No Pre-Antibiotics Drug: denied TarriFatuma saldana STORE DETECTIVE Aug 31, 2019 08:12
--- NOTE | 2019-08-31 08:13 | Immediate Post-Op Evaluation ---
Immediate Post-Op Evalulation Immediate Post-Op Evalulation Procedure: colonoscopy Date of Evaluation: Aug 31, 2019 Time of Evaluation: 08:13 IV Fluids: 300 Blood Pressure Systolic: 154 Blood Pressure Diastolic: 70 Pulse Rate: 56 Respiratory Rate: 12 O2 Sat by Pulse Oximetry: 100 Nausea: No Vomiting: No Patient Status: reacts - AC 24% 12 500 5, patent - suction pre and post procedure, ventilated Hydration Status: adequate Drug: none Fatuma Gonzalez CRNA Aug 31, 2019 08:13
--- NOTE | 2019-08-31 09:05 | Nephrology Progress Note ---
Assessment/Plan Plan Sepsis - IV Abx Established ESRD - HD now TTS. Urine output is minimal!!! Patient will remain on HD. Old Femoral Rancho not DC,ed. DW RN. ROHIT Gregory CM re DC planning. Subjective Subjective Obtunded. HD starting now. Objective Objective Last 24 Hour Vital Signs Date Time Temp Pulse Resp B/P (MAP) Pulse Ox O2 Delivery O2 Flow Rate FiO2 08/31/19 08:13 56 12 100 08/31/19 08:00 97.5 77 18 157/76 (103) 99 08/31/19 08:00 24 08/31/19 08:00 Mechanical Ventilator 08/31/19 07:45 79 16 24 08/31/19 04:00 24 08/31/19 04:00 98.8 98 20 156/75 (102) 99 08/31/19 04:00 75 08/31/19 04:00 Mechanical Ventilator 08/31/19 02:39 74 18 24 08/31/19 00:00 Mechanical Ventilator 08/31/19 00:00 70 08/31/19 00:00 97.8 75 20 154/88 (110) 99 08/30/19 22:30 68 17 100 Mechanical Ventilator 24 73 15 24 08/30/19 20:23 68 125/58 08/30/19 20:00 Mechanical Ventilator 08/30/19 20:00 65 08/30/19 20:00 97.7 63 16 125/58 (80) 98 08/30/19 20:00 24 08/30/19 18:43 66 15 24 08/30/19 16:00 120 08/30/19 16:00 24 08/30/19 16:00 100.2 108 25 152/74 (100) 100 08/30/19 16:00 Mechanical Ventilator 08/30/19 15:30 76 16 24 08/30/19 12:00 Mechanical Ventilator 08/30/19 12:00 24 08/30/19 12:00 97.9 78 15 131/61 (84) 100 08/30/19 11:42 79 08/30/19 10:54 79 6 100 Mechanical Ventilator 24 80 17 24 08/30/19 09:57 79 145/67 08/30/19 09:57 145/67 Intake and Output 08/30/19 08/31/19 19:00 07:00 Intake Total 2160 ml 2420 ml Output Total 1000 ml 1800 ml Balance 1160 ml 620 ml Free Water 90 ml IV Total 150 ml 500 ml Tube Feeding 0 ml Other 1920 ml 1920 ml Output Urine Total 1000 ml Stool Total 1800 ml # Voids 1 # Bowel Movements 50 Laboratory Tests 08/30/19 11:23: POC Whole Blood Glucose [Pending] 08/30/19 17:37: POC Whole Blood Glucose 172H 08/30/19 23:55: POC Whole Blood Glucose 138H 08/31/19 03:35: White Blood Count 14.2H, Red Blood Count 3.75L, Hemoglobin 9.9L, Hematocrit 32.0L, Mean Corpuscular Volume 85, Mean Corpuscular Hemoglobin 26.4L, Mean Corpuscular Hemoglobin Concent 31.0L, Red Cell Distribution Width 16.9H, Platelet Count 649H, Mean Platelet Volume 6.3L, Neutrophils (%) (Auto) 72.9, Lymphocytes (%) (Auto) 13.1L, Monocytes (%) (Auto) 9.2, Eosinophils (%) (Auto) 3.3H, Basophils (%) (Auto) 1.4, Sodium Level 137, Potassium Level 4.1, Chloride Level 100, Carbon Dioxide Level 29, Anion Gap 8, Blood Urea Nitrogen 52H, Creatinine 2.2H, Estimat Glomerular Filtration Rate 29.1, Glucose Level 150H, Calcium Level 8.7, Phosphorus Level 1.5L 08/31/19 05:20: POC Whole Blood Glucose 152H Height (Feet): 5 Height (Inches): 10.00 Weight (Pounds): 165 Objective CV RR Trach clean Lungs CTA New Perma Cath RIJ. Old Femoral Rancho still in Rt. Groin! Abd SNT. BS + E No CCE Erica Pichardo MD Aug 31, 2019 09:05
--- NOTE | 2019-08-31 09:05 | NUR ---
NURSE NOTES: dr urias made aware of dr adkins order to dc Rancho cath on the R femoral. Dr Urias called back and acknowledged the report.
[2019-08-31] MEDS: Ascorbic Acid 500mg tab GT SCH (10:22)
[2019-08-31] MEDS: Multivitamins W/Minerals 15 ML UDC GT SCH (10:22)
[2019-08-31] MEDS: Cefepime HCl 1 GM in NS 55 ML IVPB SCH (10:22)
[2019-08-31] MEDS: Minoxidil 2.5mg tab GT SCH (10:22)
[2019-08-31] MEDS: Nephrovite tab (Rena-Vite) GT SCH (10:23)
[2019-08-31] MEDS: Vitamin D 1000 IU Tab GT SCH (10:23)
[2019-08-31] MEDS: Metoprolol Tartrate 100mg tab GT SCH ×2 (10:24→20:13)
[2019-08-31] MEDS: Zinc Oxide Oint 2oz TOPIC SCH ×2 (10:25→17:14)
--- NOTE | 2019-08-31 10:30 | Operative Note - Dictated ---
DATE OF OPERATION: 08/31/2019 GASTROENTEROLOGY PROCEDURE REPORT PROCEDURE: Colonoscopy with biopsy. SURGEON: Ronny Mustafa MD. ANESTHESIA: Please see the separate anesthesiologist notes for details. PRE-ENDOSCOPIC DIAGNOSES: 1. Heme-positive stool. 2. Diarrhea with hypokalemia. POST-ENDOSCOPIC DIAGNOSES: 1. Colonoscopy completed to hepatic flexure. 2. No significant pathology identified to the length examined. 3. Status post random biopsies of the sigmoid and rectum areas. DESCRIPTION OF PROCEDURE: The procedure, it risks, indications, alternatives, and possible complications were explained to the patient's decision maker and informed consent was obtained. The patient was then sedated in the left lateral decubitus position and a diagnostic colonoscope was introduced into the rectum and advanced to hepatic flexure. At this juncture, due to extreme tortuosity of the colon colonoscope further advancement was not possible. The colonoscope was then gradually withdrawn and mucosa examined carefully. Examination of the colonic mucosa revealed no significant pathology. Preparation, however, was suboptimal in some areas. There was no mass lesions or large polyps. Scattered few diverticula was seen. Random biopsies of the sigmoid colon and rectum were sent to pathology for review. Retroflexed view of the rectum did not reveal any masses. The colonoscope was removed and the patient was sent to Recovery in good condition. COMPLICATIONS: None. RECOMMENDATIONS: 1. Follow up biopsy results. 2. Resume tube feeding. Ronny Mustafa M.D. DR: CELINE JOB#: [id number] CC:
--- NOTE | 2019-08-31 11:15 | NUR ---
*-* INSURANCE *-* UPDATED CLINICALS AND REVIEWS HAVE BEEN FAXED TO: [facility] ([employer] [employer]) REF# [id number] RIC:HARPER P:[phone] F:[phone]
--- NOTE | 2019-08-31 11:29 | Infectious Diseases Prog Note ---
Assessment/Plan Assessment/Plan antibiotics : cefepime, inhaled colsitin 08.27.19 - A 1. VRE UTI s/p rx 2. + blood cultures with coag neg staph likely contaminated 3. respiratory failure 4. leucocytosis improving 5. klebsiella, pseudomonas, providencia pneumonia COVID 19 test negative x 2 6. renal failure on HD P 1. continue cefepime, inhaled colistin 2 more days 2. will follow up cultures Subjective ROS Limited/Unobtainable: Yes Allergies: Coded Allergies: No Known Allergies (Unverified , 06/10/19) Objective Last 24 Hour Vital Signs Date Time Temp Pulse Resp B/P (MAP) Pulse Ox O2 Delivery O2 Flow Rate FiO2 08/31/19 10:24 56 154/70 08/31/19 10:22 154/70 08/31/19 08:13 56 12 100 08/31/19 08:00 97.5 77 18 157/76 (103) 99 08/31/19 08:00 24 08/31/19 08:00 Mechanical Ventilator 08/31/19 07:45 79 16 24 08/31/19 07:38 75 08/31/19 04:00 24 08/31/19 04:00 98.8 98 20 156/75 (102) 99 08/31/19 04:00 75 08/31/19 04:00 Mechanical Ventilator 08/31/19 02:39 74 18 24 08/31/19 00:00 Mechanical Ventilator 08/31/19 00:00 70 08/31/19 00:00 97.8 75 20 154/88 (110) 99 08/30/19 22:30 68 17 100 Mechanical Ventilator 24 73 15 24 08/30/19 20:23 68 125/58 08/30/19 20:00 Mechanical Ventilator 08/30/19 20:00 65 08/30/19 20:00 97.7 63 16 125/58 (80) 98 08/30/19 20:00 24 08/30/19 18:43 66 15 24 08/30/19 16:00 120 08/30/19 16:00 24 08/30/19 16:00 100.2 108 25 152/74 (100) 100 08/30/19 16:00 Mechanical Ventilator 08/30/19 15:30 76 16 24 08/30/19 12:00 Mechanical Ventilator 08/30/19 12:00 24 08/30/19 12:00 97.9 78 15 131/61 (84) 100 08/30/19 11:42 79 Height (Feet): 5 Height (Inches): 10.00 Weight (Pounds): 165 HEENT: status post trach Respiratory/Chest: lungs clear Cardiovascular: normal rate, regular rhythm, no gallop/murmur Abdomen: soft, non tender Extremities: no edema, other - right subclavian catheter Microbiology Date/Time Source Procedure Growth Status 08/29/19 03:00 Stool Clostridium difficile Toxin Assay - Final Complete Laboratory Tests Test 08/30/19 17:37 08/30/19 23:55 08/31/19 03:35 08/31/19 05:20 POC Whole Blood Glucose 172 MG/DL (74-106) H 138 MG/DL (74-106) H 152 MG/DL (74-106) H White Blood Count 14.2 K/UL (4.8-10.8) H Red Blood Count 3.75 M/UL (4.70-6.10) L Hemoglobin 9.9 G/DL (14.2-18.0) L Hematocrit 32.0 % (42.0-52.0) L Mean Corpuscular Volume 85 FL (80-99) Mean Corpuscular Hemoglobin 26.4 PG (27.0-31.0) L Mean Corpuscular Hemoglobin Concent 31.0 G/DL (32.0-36.0) L Red Cell Distribution Width 16.9 % (11.6-14.8) H Platelet Count 649 K/UL (150-450) H Mean Platelet Volume 6.3 FL (6.5-10.1) L Neutrophils (%) (Auto) 72.9 % (45.0-75.0) Lymphocytes (%) (Auto) 13.1 % (20.0-45.0) L Monocytes (%) (Auto) 9.2 % (1.0-10.0) Eosinophils (%) (Auto) 3.3 % (0.0-3.0) H Basophils (%) (Auto) 1.4 % (0.0-2.0) Sodium Level 137 MMOL/L (136-145) Potassium Level 4.1 MMOL/L (3.5-5.1) Chloride Level 100 MMOL/L (98-107) Carbon Dioxide Level 29 MMOL/L (21-32) Anion Gap 8 mmol/L (5-15) Blood Urea Nitrogen 52 mg/dL (7-18) H Creatinine 2.2 MG/DL (0.55-1.30) H Estimat Glomerular Filtration Rate 29.1 mL/min (>60) Glucose Level 150 MG/DL (74-106) H Calcium Level 8.7 MG/DL (8.5-10.1) Phosphorus Level 1.5 MG/DL (2.5-4.9) L Current Medications Medications (Trade) Dose Ordered Sig/Leonel Route PRN Reason Start Time Stop Time Status Last Admin Dose Admin Acetaminophen (Tylenol) 650 mg Q4H PRN GT Mild Pain / fever 08/09/19 05:30 09/08/19 05:29 08/26/19 21:44 Al Hydroxide/Mg Hydroxide (Mylanta) 30 ml FOUR TIMES A DAY PRN GT constipation 08/09/19 06:00 09/08/19 05:29 Ascorbic Acid (Vitamin C) 500 mg DAILY GT 08/09/19 09:00 09/08/19 08:59 08/31/19 10:22 Atorvastatin Calcium (Lipitor) 40 mg BEDTIME GT 08/09/19 21:00 11/07/19 20:59 08/30/19 20:23 Cefepime HCl 1 gm/ Sodium Chloride 55 ml @ 110 mls/hr Q24H IVPB 08/31/19 09:00 09/07/19 08:59 08/31/19 10:22 Chlorhexidine Gluconate (Felipa-Hex 2%) 1 applic DAILY@2000 TOPIC 08/15/19 20:00 11/13/19 19:59 08/30/19 20:23 Clonidine HCl (Catapres Tab) 0.1 mg Q4H PRN GT SBP>150 08/12/19 10:45 11/10/19 06:44 08/27/19 04:39 Colistimethate Sodium (Colistin *inhalation use only*) 75 mg Q12HRT INH 08/27/19 11:00 09/03/19 10:59 08/30/19 22:30 Dextrose 1,000 ml @ 50 mls/hr Q20H IV 08/30/19 14:09 09/29/19 14:08 08/31/19 10:27 Dextrose (Dextrose 50%) 25 ml Q30M PRN IV Hypoglycemia 08/09/19 07:30 11/07/19 07:29 Dextrose (Dextrose 50%) 50 ml Q30M PRN IV Hypoglycemia 08/09/19 07:30 11/07/19 07:29 Epoetin Andreas (Epoetin Andreas(ESRD on dialysis)) 10,000 unit WED-WED-WED SUBQ 08/18/19 21:00 11/16/19 20:59 08/30/19 20:23 Famotidine (Pepcid) 20 mg DAILY GT 08/30/19 09:00 11/28/19 08:59 08/31/19 10:23 Heparin Sodium (Porcine) (Heparin Sod 1000 units/ml 10ml) 500 unit ONCE PRN IV dialysis use 08/31/19 06:00 08/31/19 23:59 Heparin Sodium (Porcine) (Heparin) 1,000 unit POSTHD PRN INJ dialysis use 08/31/19 06:00 08/31/19 23:59 Insulin Aspart (NovoLOG) Q6HR SUBQ 08/10/19 00:00 11/07/19 11:29 08/30/19 18:24 Loperamide HCl (Imodium) 2 mg Q4H PRN GT Diarrhea 08/09/19 08:00 09/08/19 07:59 08/29/19 08:56 Metoprolol Tartrate (Lopressor) 200 mg Q12HR GT 08/09/19 09:00 11/07/19 08:59 08/31/19 10:24 Minoxidil (Loniten) 5 mg DAILY GT 08/09/19 09:00 11/07/19 08:59 08/31/19 10:22 Multivitamins (Multivitamins W/ Minerals 15ml Liquid) 15 ml DAILY GT 08/09/19 09:00 09/08/19 08:59 08/31/19 10:22 Sodium Chloride 1,000 ml @ 500 mls/hr Q2H PRN IVLG sbp<90 during hd 08/31/19 06:00 08/31/19 23:59 Vitamin B Complex/ Vit C/Folic Acid (Nephrovite) 1 tab DAILY GT 08/09/19 09:00 09/08/19 08:59 08/31/19 10:23 Vitamin D (Vitamin D) 1,000 intlu DAILY GT 08/09/19 09:00 09/08/19 08:59 08/31/19 10:23 Zinc Oxide (Zinc Oxide) 1 applic BID TOPIC 08/10/19 18:00 11/08/19 17:59 08/31/19 10:25 Farnaz Lyle MD Aug 31, 2019 11:29
[2019-08-31 12:00] VITALS: BP 152/64
[2019-08-31] MEDS: Colistin for inhalation INH SCH ×2 (12:42→23:31)
--- NOTE | 2019-08-31 13:25 | 48 Hour Post Anesthesia Eval ---
Post Anesthesia Evaluation Procedure: colonoscopy Date of Evaluation: Aug 31, 2019 Time of Evaluation: 13:25 Blood Pressure Systolic: 152 0: 64 Pulse Rate: 57 Respiratory Rate: 14 O2 Sat by Pulse Oximetry: 98 Airway: patent, other - shiley; trach; mech ventilated Nausea: No Vomiting: No Hydration Status: adequate Cardiopulmonary Status: stable Mental Status/LOC: patient returned to baseline Post-Anesthesia Complications: none Follow-up care needed: N/A Fatuma Gonzalez CRNA Aug 31, 2019 13:25
--- NOTE | 2019-08-31 13:32 | NUR ---
CASE MANAGEMENT: REVIEW 08/31/19 SI: KLEBSIELLA, PSEUDOMONAS, PROVIDENCIA PNA . ESRD on HD S/P INSERTED TUNNELED CATH PLACED~Right transjugular 97.5 86 28 152/64 98% MECH VENT FIO2 24 WBC 14.2 H/H 9.9/32.0 PLT 649 BUN/CREAT 52/2.2 BG 150 PHOS 1.5 IS: HD TODAY COLONOSCOPY IV CEFEPIME QD COLISTIN INH BID EPOETIN SUBQ QMWF HEPARIN IV PRN HD LOPRESSOR GT BID IV D5 @50ML PATIENT ADMITTED TO STEP DOWN UNIT DCP: PATIENT IS FROM [facility]: COLONOSCOPY TODAY CONTROL FEVERS
--- NOTE | 2019-08-31 14:11 | Surgery Progress Note ---
Surgery Progress Note Subjective Procedure Performed Right femoral temporary hemodialysis catheter insertion Additional Comments colonoscopy today discussed with GI and findings noted Objective Last 24 Hour Vital Signs Date Time Temp Pulse Resp B/P (MAP) Pulse Ox O2 Delivery O2 Flow Rate FiO2 08/31/19 13:25 57 14 98 08/31/19 12:00 97.5 86 28 152/64 (93) 98 08/31/19 12:00 24 08/31/19 12:00 Mechanical Ventilator 08/31/19 11:47 84 08/31/19 11:29 78 18 24 08/31/19 10:24 56 154/70 08/31/19 10:22 154/70 08/31/19 08:13 56 12 100 08/31/19 08:00 97.5 77 18 157/76 (103) 99 08/31/19 08:00 24 08/31/19 08:00 Mechanical Ventilator 08/31/19 07:45 79 16 24 08/31/19 07:38 75 08/31/19 04:00 24 08/31/19 04:00 98.8 98 20 156/75 (102) 99 08/31/19 04:00 75 08/31/19 04:00 Mechanical Ventilator 08/31/19 02:39 74 18 24 08/31/19 00:00 Mechanical Ventilator 08/31/19 00:00 70 08/31/19 00:00 97.8 75 20 154/88 (110) 99 08/30/19 22:30 68 17 100 Mechanical Ventilator 24 73 15 24 08/30/19 20:23 68 125/58 08/30/19 20:00 Mechanical Ventilator 08/30/19 20:00 65 08/30/19 20:00 97.7 63 16 125/58 (80) 98 08/30/19 20:00 24 08/30/19 18:43 66 15 24 08/30/19 16:00 120 08/30/19 16:00 24 08/30/19 16:00 100.2 108 25 152/74 (100) 100 08/30/19 16:00 Mechanical Ventilator 08/30/19 15:30 76 16 24 I&O Intake and Output 08/30/19 08/31/19 19:00 07:00 Intake Total 2160 ml 2420 ml Output Total 1000 ml 1800 ml Balance 1160 ml 620 ml Free Water 90 ml IV Total 150 ml 500 ml Tube Feeding 0 ml Other 1920 ml 1920 ml Output Urine Total 1000 ml Stool Total 1800 ml # Voids 1 # Bowel Movements 50 Dressing: other Wound: other Drains: other Cardiovascular: RSR Respiratory: decreased breath sounds Abdomen: soft, distended, non-tender, present bowel sounds Extremities: no tenderness, no cyanosis Laboratory Tests Test 08/30/19 17:37 08/30/19 23:55 08/31/19 03:35 08/31/19 05:20 POC Whole Blood Glucose 172 MG/DL (74-106) H 138 MG/DL (74-106) H 152 MG/DL (74-106) H White Blood Count 14.2 K/UL (4.8-10.8) H Red Blood Count 3.75 M/UL (4.70-6.10) L Hemoglobin 9.9 G/DL (14.2-18.0) L Hematocrit 32.0 % (42.0-52.0) L Mean Corpuscular Volume 85 FL (80-99) Mean Corpuscular Hemoglobin 26.4 PG (27.0-31.0) L Mean Corpuscular Hemoglobin Concent 31.0 G/DL (32.0-36.0) L Red Cell Distribution Width 16.9 % (11.6-14.8) H Platelet Count 649 K/UL (150-450) H Mean Platelet Volume 6.3 FL (6.5-10.1) L Neutrophils (%) (Auto) 72.9 % (45.0-75.0) Lymphocytes (%) (Auto) 13.1 % (20.0-45.0) L Monocytes (%) (Auto) 9.2 % (1.0-10.0) Eosinophils (%) (Auto) 3.3 % (0.0-3.0) H Basophils (%) (Auto) 1.4 % (0.0-2.0) Sodium Level 137 MMOL/L (136-145) Potassium Level 4.1 MMOL/L (3.5-5.1) Chloride Level 100 MMOL/L (98-107) Carbon Dioxide Level 29 MMOL/L (21-32) Anion Gap 8 mmol/L (5-15) Blood Urea Nitrogen 52 mg/dL (7-18) H Creatinine 2.2 MG/DL (0.55-1.30) H Estimat Glomerular Filtration Rate 29.1 mL/min (>60) Glucose Level 150 MG/DL (74-106) H Calcium Level 8.7 MG/DL (8.5-10.1) Phosphorus Level 1.5 MG/DL (2.5-4.9) L Test 08/31/19 12:07 POC Whole Blood Glucose 105 MG/DL (74-106) Plan Problems: (1) Anemia (2) Hyponatremia (3) Leukocytosis Assessment & Plan: Tracheostomy, left chest pacemaker are again demonstrated. There is bilateral interstitial and airspace disease and bilateral pleural fluid again demonstrated. This appears more severe than on the prior study. Bilateral interstitial and airspace infiltrates versus edema. Bilateral pleural effusions Leukocytosis, anemia, tachycardia, abnormal labs. Wound evaluated and likely etiology of patient's sepsis. Leukocytosis etiology work-up antibiotics per infectious disease Appreciate nephrology input transfuse with dialysis We will follow with recommendations thank you allowing participation's care plan HD access temp HD discussed with medical teams line okay HD as per renal persistent leukocytosis flow cyto noted improving trending down (4) Ventilator dependent (5) Right lower lobe pneumonia (6) Hypokalemia (7) Hyperkalemia (8) Anasarca (9) Decubitus skin ulcer Assessment & Plan: pt presented on admission with generalized edemae.Skin assessed under tracheostomy and no areas of concerns noted. GT Insertion is marginally erythematous with small amt slough at stoma. Unstageable Pressure Injury R elbow. Base of wound is 100% yellow slough, Borders are erythematous. Wound oozing small amt haemopurulent exudate.Darker skin tone without elevation in skin temp or erythema periwound. Pt's penis and scrotum are grossly edematous and enlarged and weeping serous exudate from numerous sites both from penis and scrotum. Two small open wounds noted at base of at base of shaft of penis ,and contreras aspect of scrotum. Both wounds oozing large amt sanguineous and serosanguineous exudate. Multiple open wounds with Biofilm at base of each wounds noted to contreras/lateral,inferior and posterior aspects of scrotum. These wounds noted to be oozing moderate amts of serosanguineous exudate. Hypertrophic scar with scattered areas of hyperpigmentation noted to Sacrum. DTPI noted to L Buttocks (L)7cm x (W)9cm. Base of wound is purple and indurated.Darker skin tone without erythema, induration or fluctuance R and L ischial tuberosities. Both heels are boggy with non-blanchable erythema. Tx.Plan: Cleanse wound R elbow with Saline. Apply TheraHoney, Apply Moisture Barrier Paste periwound. Cover with Optifoam drsg.Change Daily and prn. Wash GT site with soap and water.Pat dry. Apply Zinc Oxide Paste to GT site Daily. Leave Open to Air. Apply Zinc Oxide Paste to entire Scrotum, Place ABD pads to R and L lateral, and posterior aspects of scrotum TWICE daily. Apply Cavilon Skin Barrier to malleoli and both Heels. Cover each site with Optifoam drsgs. Change every 7 days and prn. Reposition at least every 2hours or as tolerated. Off-load heels with Pillows. APM/BECCA Mattress overlay. (10) Malnutrition Assessment & Plan: DAILY ESTIMATED NEEDS: Needs based on Renal, critical care, wound/ 61kg 22-30 kcals/kg 1509-2365 total kcals 1.25-2 g protein/kg 76-122 g total protein Fluid per MD, now on HD NUTRITION DIAGNOSIS: * Swallowing difficulty R/T respiratory failure, dysphagia as evidenced by trach/vent dep, PEG dep * Increased kcal/prot needs R/T wound healing as evidenced by admitted w/ multiple pressure injuries including full thickness wounds at junction of Shaft of penis, dorsal scrotum, R elbow, and DTPI @ L buttocks. CURRENT TF:Nepro @ 45ml/hr x 24 hrs ENTERAL NUTRITION RECOMMENDATIONS: NEPRO @ 40ml/hr x 24 hrs to provide 960ml, 1728kcal , 78g prot, 697ml free water * Decrease goal rate to 40ml/hr x 24hrs -> meets 100% est kcal/prot needs * HOB over 30 degrees/ water flush per MD WITH CONTINUED DIARRHEA AND CONSISTENTLY LOW LYTES, consider TF change to carb controlled, elemental TF Vital AF 1.2-> rec goal rate of 55ml/hr x 24 hrs to provide 1320ml, 1584kcal, 99g prot, 1070ml free water, 2228mg K and 1114mg phos ADDITIONAL RECOMMENDATIONS: * Per SNF: HT=63" WJ=758 lbs (Vs EMR wt of 166lbs) -> obtain re-calibrated bedscale wt, rec daily wt monitoring * Wound healing: continue Nephrovite x 1 and Garo BID Vit C dosing per Nephro * Monitor renal fxn and lytes-> pt now on HD rec checking f/up phos (0.9* on 08/21) * Add probiotics to help alleviate diarrhea (11) Uremia (12) CKD (chronic kidney disease) stage 5, GFR less than 15 ml/min (13) Colon distention Assessment & Plan: discussed with GI likely functional as having lots of loose bm rectal tube kub f/u Marked distention of the sigmoid colon. 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 No evidence of bowel wall thickening or pneumatosis 12 mm focus of contrast enhancement in the right pectineus muscle. While nonspecific in appearance, appearance raises concern for a possible pseudoaneurysm. Ill- defined thickening of the pectus medius muscle could indicate some intramuscular hemorrhage. The above findings were phoned to Dr. Urias at the time of interpretation Large bilateral pleural effusions Hazy pulmonary parenchymal opacities as well as dense consolidative opacities most likely represent pulmonary edema, but could represent pneumonia Evidence of anasarca elsewhere, with generalized edema of the subcutaneous fat Bladder wall thickening, raises concern for cystitis. Avalos catheter in place Colonic diverticulosis. No evidence of diverticulitis. Tracheostomy Pacemaker Gastrostomy Jonathan Urias Aug 31, 2019 14:11
[2019-08-31 16:00] VITALS: BP 125/98
--- NOTE | 2019-08-31 16:12 | NUR ---
DISCHARGE PLANNING: CM CALLED [facility] T: [phone] CM NOT ABLE TO SPEAK WITH ANYONE LEFT A VM TO BE CALLED BACK TO SEE IF DOCUMENTS RECEIVED
--- NOTE | 2019-08-31 18:29 | NUR ---
NURSE NOTES: left a message to dr bahena regarding patient bm of mucous and blood, blood clots. awaitng callback and new order as of this time.
[2019-08-31 19:11] LABS: BASOPHILS % (AUTO) 1.8 % (0.0-2.0); EOSINOPHILS % (AUTO) 2.3 % (0.0-3.0); HEMATOCRIT 27.4 % (42.0-52.0); HEMOGLOBIN 8.7 G/DL (14.2-18.0); LYMPHOCYTES % (AUTO) 9.9 % (20.0-45.0); MEAN CORPUSCULAR VOLUME 84 FL (80-99); MONOCYTES % (AUTO) 8.4 % (1.0-10.0); NEUTROPHILS % (AUTO) 77.7 % (45.0-75.0); PLATELET COUNT 678 K/UL (150-450); RED BLOOD COUNT 3.24 M/UL (4.70-6.10); RED CELL DISTRIBUTION WIDTH 17.7 % (11.6-14.8); WHITE BLOOD COUNT 16.2 K/UL (4.8-10.8)
--- NOTE | 2019-08-31 19:12 | NUR ---
HAND-OFF: Report given to vick wright.
--- NOTE | 2019-08-31 19:13 | NUR ---
NURSE NOTES: received pt from May DAVEY., pt is awake and obtunded.no SOB noted. O2sat is at 100%. no SOB noted. Gtube site clean, patent, and clean. left hand 22G intact, clean, and patent. right femoral julito and right subclavian noted. vent in place. call light within reach. bed at the lowest position, alarmed, and locked. will continue to monitor pt with plan of care.
[2019-08-31 20:00] VITALS: BP 138/55
--- NOTE | 2019-08-31 20:00 | NUR ---
NURSE NOTES: notified Dr. Mustafa, regarding new CBC abnormal result. will wait for call back.
[2019-08-31] MEDS: Dyna-Hex 2% Top Sol 2oz TOPIC SCH (20:12)
[2019-08-31] MEDS: Atorvastatin 20mg tab GT SCH (20:13)
--- NOTE | 2019-08-31 21:36 | Endoscopy Procedure Note ---
Endoscopy Procedure Note General Indication for Procedure: Heme (+), diarrhea Procedures Performed: colonoscopy Operative Findings/Diagnosis: normal to hepatic flexure, tortous contour Specimen: yes Pt Tolerated Procedure Well: Yes Estimated Blood Loss: none Anesthesia Anesthesiologist: ALIYAH Anesthesia: MAC, moderate sedation Medications Medication Given: see anesthesia record Inserted Devices Implant(s) used?: No GI Core Measures 50 yrs or older w/o bx or poly: Not Applicable 10yrs. F/U recommended: Not Applicable Ronny Mustafa MD Aug 31, 2019 21:36
--- NOTE | 2019-08-31 21:37 | Brief Operative Note ---
Immediate Post Operative Note Operative Note Chief Complaint: diarrhea, heme (+) Pre-op Diagnosis: GIB, diarrhea Procedure: EGD Bx Post-op Diagnosis: Gastritis, mild Post-op Diagnosis: same as pre-op plus Surgeon: shruti Anesthesia: MAC Specimen: yes Complications: none Fluids: given by INFECTION PREVENTIONIST Implant(s) used?: No Ronny Mustafa MD Aug 31, 2019 21:37
[2019-09-01] VITALS: BP 143/68
[2019-09-01] MEDS: NovoLOG Insulin Flexpen SUBQ SCH ×5 (00:26→23:04)
[2019-09-01 04:00] VITALS: BP 134/59
--- NOTE | 2019-09-01 04:00 | NUR ---
NURSE NOTES: given bath, oral care given, new gown, repositioned. call light within reach. no SOB noted. will continue to monitor pt.
[2019-09-01 04:48] LABS: BASOPHILS % (AUTO) 1.2 % (0.0-2.0); EOSINOPHILS % (AUTO) 3.3 % (0.0-3.0); HEMATOCRIT 29.7 % (42.0-52.0); HEMOGLOBIN 9.2 G/DL (14.2-18.0); LYMPHOCYTES % (AUTO) 13.2 % (20.0-45.0); MEAN CORPUSCULAR VOLUME 85 FL (80-99); MONOCYTES % (AUTO) 10.8 % (1.0-10.0); NEUTROPHILS % (AUTO) 71.5 % (45.0-75.0); PLATELET COUNT 669 K/UL (150-450); RED CELL DISTRIBUTION WIDTH 16.5 % (11.6-14.8); WHITE BLOOD COUNT 14.5 K/UL (4.8-10.8)
--- NOTE | 2019-09-01 06:26 | Hematology/Onc Progress Note ---
Assessment/Plan Assessment/Plan Assessment/recs # Leukocytosis - with multiple infections, VRE UTI, flow is negative --> wbc trend 33-->28-->25->23->22->23->24->17.3-->17-->14->16-->15.6-->14-->14 --> on abx, linezolid and zosyn--> zosyn-->off --> + blood cultures with coag neg staph likely contaminated --> as per id recs --> has ordered a flow cytometry (with pathology) --> does show increased nK cell activity --> JOURDAN 2 and bcr-abl labs ordered (these are send outs) --> plt 585-->613-->649-->669 # Anemia due to chronic disease/kidney disease as well, gi bleed + occult + noted --> was on iron in the past, now on hold --> has been started on Epogen sq --> as per renal care --> egd done and shows gastritis --> on ppi --> egd showed gastritis, colo recently done --> hgb 9-->8.7-->7.6-->9.2-->8.9-->9.2->9.3-->8.8->9.9-->9.2 # Respiratory failure --> per pulm, s/p trach --> COVID 19 test negative x 2 # Dysphagia s/p gtube with nepro --> per gi # ESRD with r fem julito --> hd as per renal # Dvt ppx scds Appreciate consultation and matt Rn Subjective HEENT: Denies: no symptoms, eye pain, blurred vision, tearing, double vision, ear pain, ear discharge, nose pain, nose congestion, throat pain, throat swelling, mouth pain, mouth swelling, other Cardiovascular: Denies: no symptoms, chest pain, edema, irregular heart rate, lightheadedness, palpitations, syncope, other Respiratory: Denies: no symptoms, cough, shortness of breath, SOB with excertion, SOB at rest, sputum, wheezing, other Gastrointestinal/Abdominal: Denies: no symptoms, abdomen distended, abdominal pain, black stools, tarry stools, blood in stool, constipated, diarrhea, difficulty swallowing, nausea, poor appetite, poor fluid intake, rectal bleeding , vomiting, other Genitourinary: Denies: no symptoms, burning, discharge, frequency, flank pain, hematuria, incontinence, pain, urgency, other Neurologic/Psychiatric: Denies: no symptoms, anxiety, depressed, emotional problems, headache, numbness, paresthesia, pre-existing deficit, seizure, tingling, tremors, weakness, other Allergies: Coded Allergies: No Known Allergies (Unverified , 06/10/19) Subjective 08/15 meds noted, no bleeding, hgb 8.8, wbc 28, path flow pending 08/16 flow pending dw pathologist, results pending, wbc 25, hgb 9 08/17 labs reviewed, meds reviewed, meds noted, no night sweats 08/19 remains obtunded, on vent/trach, no bleeding wbc 21.7 08/20 labs have been reviewed, no bleeding, wbc still elev, path reviewed 08/21 labs are noted, no bleeding, on vent, wbc better 08/22 labs noted, no bleeding, meds reviewed, wbc 24 hgb 7.6 08/23 vent, off abx, c diff negative, h/h stable 08/24 labs reviewed, on abx, wbc 17, hgb 8.9, no hemolysis 08/26 reviewed flow and is negative for leukemia, matt rn 08/27 meds reviewed, no night sweats, matt rn, no major bleeding 08/28 meds reivewed, labs noted 08/29 wbc is stable, approx 15, hgb 8.8, no hemolysis 08/30 labs are noted, is for colo today, hgb 9.9 08/31 right fem julito in place, unchanged, hgb 9.2, gi aware Objective Objective Current Medications Medications (Trade) Dose Ordered Sig/Leonel Route PRN Reason Start Time Stop Time Status Last Admin Dose Admin Acetaminophen (Tylenol) 650 mg Q4H PRN GT Mild Pain / fever 08/09/19 05:30 09/08/19 05:29 08/26/19 21:44 Al Hydroxide/Mg Hydroxide (Mylanta) 30 ml FOUR TIMES A DAY PRN GT constipation 08/09/19 06:00 09/08/19 05:29 Ascorbic Acid (Vitamin C) 500 mg DAILY GT 08/09/19 09:00 09/08/19 08:59 08/31/19 10:22 Atorvastatin Calcium (Lipitor) 40 mg BEDTIME GT 08/09/19 21:00 11/07/19 20:59 08/31/19 20:13 Cefepime HCl 1 gm/ Sodium Chloride 55 ml @ 110 mls/hr Q24H IVPB 08/31/19 09:00 09/07/19 08:59 08/31/19 10:22 Chlorhexidine Gluconate (Felipa-Hex 2%) 1 applic DAILY@2000 TOPIC 08/15/19 20:00 11/13/19 19:59 08/31/19 20:12 Clonidine HCl (Catapres Tab) 0.1 mg Q4H PRN GT SBP>150 08/12/19 10:45 11/10/19 06:44 08/27/19 04:39 Colistimethate Sodium (Colistin *inhalation use only*) 75 mg Q12HRT INH 08/27/19 11:00 09/03/19 10:59 08/31/19 23:31 Dextrose 1,000 ml @ 50 mls/hr Q20H IV 08/30/19 14:09 09/29/19 14:08 09/01/19 05:58 Dextrose (Dextrose 50%) 25 ml Q30M PRN IV Hypoglycemia 08/09/19 07:30 11/07/19 07:29 Dextrose (Dextrose 50%) 50 ml Q30M PRN IV Hypoglycemia 08/09/19 07:30 11/07/19 07:29 Epoetin Andreas (Epoetin Andreas(ESRD on dialysis)) 10,000 unit WED-WED-WED SUBQ 08/18/19 21:00 11/16/19 20:59 08/30/19 20:23 Famotidine (Pepcid) 20 mg DAILY GT 08/30/19 09:00 11/28/19 08:59 08/31/19 10:23 Insulin Aspart (NovoLOG) Q6HR SUBQ 08/10/19 00:00 11/07/19 11:29 09/01/19 05:57 Loperamide HCl (Imodium) 2 mg Q4H PRN GT Diarrhea 08/09/19 08:00 09/08/19 07:59 08/29/19 08:56 Metoprolol Tartrate (Lopressor) 200 mg Q12HR GT 08/09/19 09:00 11/07/19 08:59 08/31/19 20:13 Minoxidil (Loniten) 5 mg DAILY GT 08/09/19 09:00 11/07/19 08:59 08/31/19 10:22 Multivitamins (Multivitamins W/ Minerals 15ml Liquid) 15 ml DAILY GT 08/09/19 09:00 09/08/19 08:59 08/31/19 10:22 Vitamin B Complex/ Vit C/Folic Acid (Nephrovite) 1 tab DAILY GT 08/09/19 09:00 09/08/19 08:59 08/31/19 10:23 Vitamin D (Vitamin D) 1,000 intlu DAILY GT 08/09/19 09:00 09/08/19 08:59 08/31/19 10:23 Zinc Oxide (Zinc Oxide) 1 applic BID TOPIC 08/10/19 18:00 11/08/19 17:59 08/31/19 17:14 Last 24 Hour Vital Signs Date Time Temp Pulse Resp B/P (MAP) Pulse Ox O2 Delivery O2 Flow Rate FiO2 09/01/19 04:00 99.3 79 15 134/59 (84) 100 09/01/19 04:00 24 09/01/19 04:00 Mechanical Ventilator 09/01/19 03:33 79 09/01/19 03:00 71 15 24 09/01/19 00:00 98.4 74 19 143/68 (93) 100 09/01/19 00:00 Mechanical Ventilator 08/31/19 23:59 80 08/31/19 23:31 72 17 100 Mechanical Ventilator 24 74 18 24 08/31/19 20:13 88 138/55 08/31/19 20:00 98.2 84 19 138/55 (82) 100 08/31/19 20:00 Mechanical Ventilator 08/31/19 20:00 24 08/31/19 19:52 81 20 24 08/31/19 19:28 81 08/31/19 16:00 98.2 80 16 125/98 (107) 99 08/31/19 16:00 Mechanical Ventilator 08/31/19 16:00 24 08/31/19 15:50 81 08/31/19 14:45 77 19 24 08/31/19 13:25 57 14 98 08/31/19 12:00 97.5 86 28 152/64 (93) 98 08/31/19 12:00 24 08/31/19 12:00 Mechanical Ventilator 08/31/19 11:47 84 08/31/19 11:29 78 18 100 Mechanical Ventilator 24 74 18 08/31/19 10:24 56 154/70 08/31/19 10:22 154/70 08/31/19 08:13 56 12 100 08/31/19 08:00 97.5 77 18 157/76 (103) 99 08/31/19 08:00 24 08/31/19 08:00 Mechanical Ventilator 08/31/19 07:45 79 16 24 08/31/19 07:38 75 08/31/19 04:00 24 08/31/19 04:00 98.8 98 20 156/75 (102) 99 08/31/19 04:00 75 08/31/19 04:00 Mechanical Ventilator 08/31/19 02:39 74 18 24 08/31/19 00:00 Mechanical Ventilator 08/31/19 00:00 70 08/31/19 00:00 97.8 75 20 154/88 (110) 99 08/30/19 22:30 68 17 100 Mechanical Ventilator 24 73 15 24 08/30/19 20:23 68 125/58 08/30/19 20:00 Mechanical Ventilator 08/30/19 20:00 65 08/30/19 20:00 97.7 63 16 125/58 (80) 98 08/30/19 20:00 24 08/30/19 18:43 66 15 24 08/30/19 16:00 120 08/30/19 16:00 24 08/30/19 16:00 100.2 108 25 152/74 (100) 100 08/30/19 16:00 Mechanical Ventilator 08/30/19 15:30 76 16 24 08/30/19 12:00 Mechanical Ventilator 08/30/19 12:00 24 08/30/19 12:00 97.9 78 15 131/61 (84) 100 08/30/19 11:42 79 08/30/19 10:54 79 6 100 Mechanical Ventilator 24 80 17 24 08/30/19 09:57 79 145/67 08/30/19 09:57 145/67 08/30/19 08:00 98.2 79 17 145/67 (93) 100 08/30/19 08:00 24 08/30/19 08:00 Mechanical Ventilator 08/30/19 07:56 80 08/30/19 07:14 78 18 24 Intake and Output 08/31/19 09/01/19 19:00 07:00 Intake Total 985 ml 1017.5 ml Output Total 2000 ml Balance -1015 ml 1017.5 ml Free Water 80 ml 40 ml IV Total 455 ml 527.5 ml Tube Feeding 450 ml 450 ml Hemodialysis UF 2000 ml Labs Test 08/29/19 11:27 08/29/19 17:09 08/29/19 23:44 08/30/19 03:45 POC Whole Blood Glucose 159 MG/DL (74-106) 202 MG/DL (74-106) 190 MG/DL (74-106) White Blood Count 15.6 K/UL (4.8-10.8) Red Blood Count 3.30 M/UL (4.70-6.10) Hemoglobin 8.8 G/DL (14.2-18.0) Hematocrit 28.1 % (42.0-52.0) Mean Corpuscular Volume 85 FL (80-99) Mean Corpuscular Hemoglobin 26.5 PG (27.0-31.0) Mean Corpuscular Hemoglobin Concent 31.2 G/DL (32.0-36.0) Red Cell Distribution Width 16.4 % (11.6-14.8) Platelet Count 613 K/UL (150-450) Mean Platelet Volume 6.6 FL (6.5-10.1) Neutrophils (%) (Auto) 74.1 % (45.0-75.0) Lymphocytes (%) (Auto) 11.2 % (20.0-45.0) Monocytes (%) (Auto) 8.9 % (1.0-10.0) Eosinophils (%) (Auto) 4.4 % (0.0-3.0) Basophils (%) (Auto) 1.3 % (0.0-2.0) Prothrombin Time 13.8 SEC (9.30-11.50) Prothromb Time International Ratio 1.3 (0.9-1.1) Activated Partial Thromboplast Time 31 SEC (23-33) Sodium Level 139 MMOL/L (136-145) Potassium Level 3.2 MMOL/L (3.5-5.1) Chloride Level 100 MMOL/L (98-107) Carbon Dioxide Level 33 MMOL/L (21-32) Anion Gap 7 mmol/L (5-15) Blood Urea Nitrogen 48 mg/dL (7-18) Creatinine 1.9 MG/DL (0.55-1.30) Estimat Glomerular Filtration Rate 34.5 mL/min (>60) Glucose Level 157 MG/DL (74-106) Lactic Acid Level 0.60 mmol/L (0.4-2.0) Calcium Level 9.0 MG/DL (8.5-10.1) Total Bilirubin 0.3 MG/DL (0.2-1.0) Aspartate Amino Transf (AST/SGOT) 44 U/L (15-37) Alanine Aminotransferase (ALT/SGPT) 34 U/L (12-78) Alkaline Phosphatase 299 U/L (46-116) Total Protein 7.6 G/DL (6.4-8.2) Albumin 1.3 G/DL (3.4-5.0) Globulin 6.3 g/dL Albumin/Globulin Ratio 0.2 (1.0-2.7) Test 08/30/19 05:12 08/30/19 11:23 08/30/19 17:37 08/30/19 23:55 POC Whole Blood Glucose 157 MG/DL (74-106) 172 MG/DL (74-106) 138 MG/DL (74-106) Test 08/31/19 03:35 08/31/19 05:20 08/31/19 12:07 08/31/19 17:12 White Blood Count 14.2 K/UL (4.8-10.8) Red Blood Count 3.75 M/UL (4.70-6.10) Hemoglobin 9.9 G/DL (14.2-18.0) Hematocrit 32.0 % (42.0-52.0) Mean Corpuscular Volume 85 FL (80-99) Mean Corpuscular Hemoglobin 26.4 PG (27.0-31.0) Mean Corpuscular Hemoglobin Concent 31.0 G/DL (32.0-36.0) Red Cell Distribution Width 16.9 % (11.6-14.8) Platelet Count 649 K/UL (150-450) Mean Platelet Volume 6.3 FL (6.5-10.1) Neutrophils (%) (Auto) 72.9 % (45.0-75.0) Lymphocytes (%) (Auto) 13.1 % (20.0-45.0) Monocytes (%) (Auto) 9.2 % (1.0-10.0) Eosinophils (%) (Auto) 3.3 % (0.0-3.0) Basophils (%) (Auto) 1.4 % (0.0-2.0) Sodium Level 137 MMOL/L (136-145) Potassium Level 4.1 MMOL/L (3.5-5.1) Chloride Level 100 MMOL/L (98-107) Carbon Dioxide Level 29 MMOL/L (21-32) Anion Gap 8 mmol/L (5-15) Blood Urea Nitrogen 52 mg/dL (7-18) Creatinine 2.2 MG/DL (0.55-1.30) Estimat Glomerular Filtration Rate 29.1 mL/min (>60) Glucose Level 150 MG/DL (74-106) Calcium Level 8.7 MG/DL (8.5-10.1) Phosphorus Level 1.5 MG/DL (2.5-4.9) POC Whole Blood Glucose 152 MG/DL (74-106) 105 MG/DL (74-106) Test 08/31/19 19:05 08/31/19 23:33 09/01/19 03:05 09/01/19 05:55 White Blood Count 16.2 K/UL (4.8-10.8) 14.5 K/UL (4.8-10.8) Red Blood Count 3.24 M/UL (4.70-6.10) 3.50 M/UL (4.70-6.10) Hemoglobin 8.7 G/DL (14.2-18.0) 9.2 G/DL (14.2-18.0) Hematocrit 27.4 % (42.0-52.0) 29.7 % (42.0-52.0) Mean Corpuscular Volume 84 FL (80-99) 85 FL (80-99) Mean Corpuscular Hemoglobin 26.8 PG (27.0-31.0) 26.3 PG (27.0-31.0) Mean Corpuscular Hemoglobin Concent 31.7 G/DL (32.0-36.0) 31.1 G/DL (32.0-36.0) Red Cell Distribution Width 17.7 % (11.6-14.8) 16.5 % (11.6-14.8) Platelet Count 678 K/UL (150-450) 669 K/UL (150-450) Mean Platelet Volume 5.7 FL (6.5-10.1) 6.2 FL (6.5-10.1) Neutrophils (%) (Auto) 77.7 % (45.0-75.0) 71.5 % (45.0-75.0) Lymphocytes (%) (Auto) 9.9 % (20.0-45.0) 13.2 % (20.0-45.0) Monocytes (%) (Auto) 8.4 % (1.0-10.0) 10.8 % (1.0-10.0) Eosinophils (%) (Auto) 2.3 % (0.0-3.0) 3.3 % (0.0-3.0) Basophils (%) (Auto) 1.8 % (0.0-2.0) 1.2 % (0.0-2.0) Height (Feet): 5 Height (Inches): 10.00 Weight (Pounds): 165 Objective Physical Exam General Appearance: nad, Chronically Ill Head: normocephalic Eyes: right eye PERRL - Will not open left eye ENT: moist mucus membranes Neck: other - submandibular mass R, fairly rigid with resistance to rotation to L, tracheotomy Respiratory: decreased breath sounds, crackles, other - pacemaker, vent+ Cardiovascular: regular rate, rhythm, edema - anasarca Gastrointestinal: non tender, distended, other - G tube Genitourinary: other Musculoskeletal: other - Contractures all extremities Neurologic: sensory intact, motor weakness, responsive Psychiatric: other Skin: Decubitus/Ulcer - Stage III right elbow, stage III left elbow, stage II sacrum, stage III scrotum, warm/dry Fitz Campos MD Sep 01, 2019 06:26
--- NOTE | 2019-09-01 07:10 | NUR ---
HAND-OFF: Report given to Srinivas DAVEY., endorsed plan of care. pt is stable condition, no active bleeding. no SOB noted.
[2019-09-01 08:00] VITALS: BP 138/56
[2019-09-01] MEDS: Nephrovite tab (Rena-Vite) GT SCH (08:19)
[2019-09-01] MEDS: Ascorbic Acid 500mg tab GT SCH (08:20)
[2019-09-01] MEDS: Metoprolol Tartrate 100mg tab GT SCH ×2 (08:20→20:19)
[2019-09-01] MEDS: Minoxidil 2.5mg tab GT SCH (08:21)
[2019-09-01] MEDS: Multivitamins W/Minerals 15 ML UDC GT SCH (08:21)
[2019-09-01] MEDS: Vitamin D 1000 IU Tab GT SCH (08:21)
[2019-09-01] MEDS: Cefepime HCl 1 GM in NS 55 ML IVPB SCH (08:22)
--- NOTE | 2019-09-01 08:28 | General Progress Note ---
Assessment/Plan Assessment/Plan: IMPRESSION: 1. anemia. 2. GI bleed. 3. Leukocytosis. 4. Probable sepsis. + BCX 5. Acute on chronic renal failure. 6. Hyponatremia. 7. Severe protein-calorie malnutrition. 8. Significantly elevated C-reactive protein concerning for infectious etiology. 9. Tracheostomy, G-tube. 10. Ventilator dependence. 11. anasarca with bilateral pleural effusion 12. Hematuria PLAN needs placement care noted on vent surgical follow up monitor labs rate control monitor renal function: HD prognosis poor impression, plan, and exam edited and reviewed in detail care discussed with RN Subjective Allergies: Coded Allergies: No Known Allergies (Unverified , 06/10/19) Subjective remains ill on vent on HD Objective Last 24 Hour Vital Signs Date Time Temp Pulse Resp B/P (MAP) Pulse Ox O2 Delivery O2 Flow Rate FiO2 09/01/19 08:21 138/56 09/01/19 08:20 84 138/56 09/01/19 08:00 98.2 84 16 138/56 (83) 100 09/01/19 07:45 86 22 24 09/01/19 04:00 99.3 79 15 134/59 (84) 100 09/01/19 04:00 24 09/01/19 04:00 Mechanical Ventilator 09/01/19 03:33 79 09/01/19 03:00 71 15 24 09/01/19 00:00 98.4 74 19 143/68 (93) 100 09/01/19 00:00 Mechanical Ventilator 08/31/19 23:59 80 08/31/19 23:31 72 17 100 Mechanical Ventilator 24 74 18 24 08/31/19 20:13 88 138/55 08/31/19 20:00 98.2 84 19 138/55 (82) 100 08/31/19 20:00 Mechanical Ventilator 08/31/19 20:00 24 08/31/19 19:52 81 20 24 08/31/19 19:28 81 08/31/19 16:00 98.2 80 16 125/98 (107) 99 08/31/19 16:00 Mechanical Ventilator 08/31/19 16:00 24 08/31/19 15:50 81 08/31/19 14:45 77 19 24 08/31/19 13:25 57 14 98 08/31/19 12:00 97.5 86 28 152/64 (93) 98 08/31/19 12:00 24 08/31/19 12:00 Mechanical Ventilator 08/31/19 11:47 84 08/31/19 11:29 78 18 100 Mechanical Ventilator 24 74 18 08/31/19 10:24 56 154/70 08/31/19 10:22 154/70 Intake and Output 08/31/19 09/01/19 19:00 07:00 Intake Total 985 ml 1017.5 ml Output Total 2000 ml Balance -1015 ml 1017.5 ml Free Water 80 ml 40 ml IV Total 455 ml 527.5 ml Tube Feeding 450 ml 450 ml Hemodialysis UF 2000 ml Laboratory Tests 08/31/19 12:07: POC Whole Blood Glucose 105 08/31/19 17:12: POC Whole Blood Glucose [Pending] 08/31/19 19:05: White Blood Count 16.2H, Red Blood Count 3.24L, Hemoglobin 8.7L, Hematocrit 27.4L, Mean Corpuscular Volume 84, Mean Corpuscular Hemoglobin 26.8L, Mean Corpuscular Hemoglobin Concent 31.7L, Red Cell Distribution Width 17.7H, Platelet Count 678H, Mean Platelet Volume 5.7L, Neutrophils (%) (Auto) 77.7H, Lymphocytes (%) (Auto) 9.9L, Monocytes (%) (Auto) 8.4, Eosinophils (%) (Auto) 2.3, Basophils (%) (Auto) 1.8 08/31/19 23:33: POC Whole Blood Glucose [Pending] 09/01/19 03:05: White Blood Count 14.5H, Red Blood Count 3.50L, Hemoglobin 9.2L, Hematocrit 29.7L, Mean Corpuscular Volume 85, Mean Corpuscular Hemoglobin 26.3L, Mean Corpuscular Hemoglobin Concent 31.1L, Red Cell Distribution Width 16.5H, Platelet Count 669H, Mean Platelet Volume 6.2L, Neutrophils (%) (Auto) 71.5, Lymphocytes (%) (Auto) 13.2L, Monocytes (%) (Auto) 10.8H, Eosinophils (%) (Auto ) 3.3H, Basophils (%) (Auto) 1.2 09/01/19 05:55: POC Whole Blood Glucose [Pending] Height (Feet): 5 Height (Inches): 10.00 Weight (Pounds): 167 Objective GENERAL: Ill-appearing male, chronically debilitated. HEENT: Tracheostomy in midline. Questionable fullness in the submandibular region. LUNGS: Coarse breath sounds. reduced breath sounds CARDIAC: S1, S2. Regular rate and rhythm. ABDOMEN: Soft. G-tube. EXTREMITIES: With noted edema. NEUROLOGICAL: Poorly responsive, weak diffusely. Kain Ramirez MD Sep 01, 2019 08:28
[2019-09-01] MEDS: Zinc Oxide Oint 2oz TOPIC SCH ×2 (08:31→17:28)
--- NOTE | 2019-09-01 08:56 | Infectious Diseases Prog Note ---
Assessment/Plan Assessment/Plan A: 1. Pneumonia with Klebsiella, pseudomonas & Providencia COVID19 X2 : negative 2. Renal failure, ESRD 3. Leukocytosis improving 4. Respiratory failure, Ventilator dependent 5. Anemia 6. Anasarca 7. 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 Continue Cefepime & colistin inhaler X 1 day Subjective ROS Limited/Unobtainable: Yes Constitutional: Denies: fever Gastrointestinal/Abdominal: Reports: other - had EGT & gastric biopsy yesterday Allergies: Coded Allergies: No Known Allergies (Unverified , 06/10/19) Objective Last 24 Hour Vital Signs Date Time Temp Pulse Resp B/P (MAP) Pulse Ox O2 Delivery O2 Flow Rate FiO2 09/01/19 08:21 138/56 09/01/19 08:20 84 138/56 09/01/19 08:00 98.2 84 16 138/56 (83) 100 09/01/19 07:45 86 22 24 09/01/19 04:00 99.3 79 15 134/59 (84) 100 09/01/19 04:00 24 09/01/19 04:00 Mechanical Ventilator 09/01/19 03:33 79 09/01/19 03:00 71 15 24 09/01/19 00:00 98.4 74 19 143/68 (93) 100 09/01/19 00:00 Mechanical Ventilator 08/31/19 23:59 80 08/31/19 23:31 72 17 100 Mechanical Ventilator 24 74 18 24 08/31/19 20:13 88 138/55 08/31/19 20:00 98.2 84 19 138/55 (82) 100 08/31/19 20:00 Mechanical Ventilator 08/31/19 20:00 24 08/31/19 19:52 81 20 24 08/31/19 19:28 81 08/31/19 16:00 98.2 80 16 125/98 (107) 99 08/31/19 16:00 Mechanical Ventilator 08/31/19 16:00 24 08/31/19 15:50 81 08/31/19 14:45 77 19 24 08/31/19 13:25 57 14 98 08/31/19 12:00 97.5 86 28 152/64 (93) 98 08/31/19 12:00 24 7/23/20 12:00 Mechanical Ventilator 08/31/19 11:47 84 08/31/19 11:29 78 18 100 Mechanical Ventilator 24 74 18 08/31/19 10:24 56 154/70 08/31/19 10:22 154/70 Height (Feet): 5 Height (Inches): 10.00 Weight (Pounds): 167 General Appearance: no acute distress HEENT: status post trach Respiratory/Chest: lungs clear, other - on ventilator Cardiovascular: normal rate Abdomen: soft, non tender Extremities: other - generalized edema Neurologic/Psychiatric: unresponsiveness Laboratory Tests Test 08/31/19 12:07 08/31/19 17:12 08/31/19 19:05 08/31/19 23:33 POC Whole Blood Glucose 105 MG/DL (74-106) Pending Pending White Blood Count 16.2 K/UL (4.8-10.8) H Red Blood Count 3.24 M/UL (4.70-6.10) L Hemoglobin 8.7 G/DL (14.2-18.0) L Hematocrit 27.4 % (42.0-52.0) L Mean Corpuscular Volume 84 FL (80-99) Mean Corpuscular Hemoglobin 26.8 PG (27.0-31.0) L Mean Corpuscular Hemoglobin Concent 31.7 G/DL (32.0-36.0) L Red Cell Distribution Width 17.7 % (11.6-14.8) H Platelet Count 678 K/UL (150-450) H Mean Platelet Volume 5.7 FL (6.5-10.1) L Neutrophils (%) (Auto) 77.7 % (45.0-75.0) H Lymphocytes (%) (Auto) 9.9 % (20.0-45.0) L Monocytes (%) (Auto) 8.4 % (1.0-10.0) Eosinophils (%) (Auto) 2.3 % (0.0-3.0) Basophils (%) (Auto) 1.8 % (0.0-2.0) Test 09/01/19 03:05 09/01/19 05:55 White Blood Count 14.5 K/UL (4.8-10.8) H Red Blood Count 3.50 M/UL (4.70-6.10) L Hemoglobin 9.2 G/DL (14.2-18.0) L Hematocrit 29.7 % (42.0-52.0) L Mean Corpuscular Volume 85 FL (80-99) Mean Corpuscular Hemoglobin 26.3 PG (27.0-31.0) L Mean Corpuscular Hemoglobin Concent 31.1 G/DL (32.0-36.0) L Red Cell Distribution Width 16.5 % (11.6-14.8) H Platelet Count 669 K/UL (150-450) H Mean Platelet Volume 6.2 FL (6.5-10.1) L Neutrophils (%) (Auto) 71.5 % (45.0-75.0) Lymphocytes (%) (Auto) 13.2 % (20.0-45.0) L Monocytes (%) (Auto) 10.8 % (1.0-10.0) H Eosinophils (%) (Auto) 3.3 % (0.0-3.0) H Basophils (%) (Auto) 1.2 % (0.0-2.0) POC Whole Blood Glucose Pending Current Medications Medications (Trade) Dose Ordered Sig/Leonel Route PRN Reason Start Time Stop Time Status Last Admin Dose Admin Acetaminophen (Tylenol) 650 mg Q4H PRN GT Mild Pain / fever 08/09/19 05:30 09/08/19 05:29 08/26/19 21:44 Al Hydroxide/Mg Hydroxide (Mylanta) 30 ml FOUR TIMES A DAY PRN GT constipation 08/09/19 06:00 09/08/19 05:29 Ascorbic Acid (Vitamin C) 500 mg DAILY GT 08/09/19 09:00 09/08/19 08:59 09/01/19 08:20 Atorvastatin Calcium (Lipitor) 40 mg BEDTIME GT 08/09/19 21:00 11/07/19 20:59 08/31/19 20:13 Cefepime HCl 1 gm/ Sodium Chloride 55 ml @ 110 mls/hr Q24H IVPB 08/31/19 09:00 09/07/19 08:59 09/01/19 08:22 Chlorhexidine Gluconate (Felipa-Hex 2%) 1 applic DAILY@2000 TOPIC 08/15/19 20:00 11/13/19 19:59 08/31/19 20:12 Clonidine HCl (Catapres Tab) 0.1 mg Q4H PRN GT SBP>150 08/12/19 10:45 11/10/19 06:44 08/27/19 04:39 Colistimethate Sodium (Colistin *inhalation use only*) 75 mg Q12HRT INH 08/27/19 11:00 09/03/19 10:59 08/31/19 23:31 Dextrose 1,000 ml @ 50 mls/hr Q20H IV 08/30/19 14:09 09/29/19 14:08 09/01/19 05:58 Dextrose (Dextrose 50%) 25 ml Q30M PRN IV Hypoglycemia 08/09/19 07:30 11/07/19 07:29 Dextrose (Dextrose 50%) 50 ml Q30M PRN IV Hypoglycemia 08/09/19 07:30 11/07/19 07:29 Epoetin Andreas (Epoetin Andreas(ESRD on dialysis)) 10,000 unit SUBQ 08/18/19 21:00 11/16/19 20:59 08/30/19 20:23 Famotidine (Pepcid) 20 mg DAILY GT 08/30/19 09:00 11/28/19 08:59 09/01/19 08:21 Insulin Aspart (NovoLOG) Q6HR SUBQ 08/10/19 00:00 11/07/19 11:29 09/01/19 05:57 Loperamide HCl (Imodium) 2 mg Q4H PRN GT Diarrhea 08/09/19 08:00 09/08/19 07:59 08/29/19 08:56 Metoprolol Tartrate (Lopressor) 200 mg Q12HR GT 08/09/19 09:00 11/07/19 08:59 09/01/19 08:20 Minoxidil (Loniten) 5 mg DAILY GT 08/09/19 09:00 11/07/19 08:59 09/01/19 08:21 Multivitamins (Multivitamins W/ Minerals 15ml Liquid) 15 ml DAILY GT 08/09/19 09:00 09/08/19 08:59 09/01/19 08:21 Vitamin B Complex/ Vit C/Folic Acid (Nephrovite) 1 tab DAILY GT 08/09/19 09:00 09/08/19 08:59 09/01/19 08:19 Vitamin D (Vitamin D) 1,000 intlu DAILY GT 08/09/19 09:00 09/08/19 08:59 09/01/19 08:21 Zinc Oxide (Zinc Oxide) 1 applic BID TOPIC 08/10/19 18:00 11/08/19 17:59 09/01/19 08:31 Real De Leon MD Sep 01, 2019 08:56
[2019-09-01] MEDS: Colistin for inhalation INH SCH ×2 (11:02→22:29)
--- NOTE | 2019-09-01 11:34 | Nephrology Progress Note ---
Assessment/Plan Plan Sepsis - IV Abx Established ESRD - HD now TTS. Urine output is minimal!!! Patient will remain on HD. Old Femoral Rancho not DC,ed. DW RN. ROHIT Gregory CM re DC planning. Subjective Subjective Obtunded. Objective Objective Last 24 Hour Vital Signs Date Time Temp Pulse Resp B/P (MAP) Pulse Ox O2 Delivery O2 Flow Rate FiO2 09/01/19 11:17 69 18 100 Mechanical Ventilator 24 72 18 24 09/01/19 08:21 138/56 09/01/19 08:20 84 138/56 09/01/19 08:08 81 09/01/19 08:00 Mechanical Ventilator 09/01/19 08:00 98.2 84 16 138/56 (83) 100 09/01/19 08:00 24 09/01/19 07:45 86 22 24 09/01/19 04:00 99.3 79 15 134/59 (84) 100 09/01/19 04:00 24 09/01/19 04:00 Mechanical Ventilator 09/01/19 03:33 79 09/01/19 03:00 71 15 24 09/01/19 00:00 98.4 74 19 143/68 (93) 100 09/01/19 00:00 Mechanical Ventilator 08/31/19 23:59 80 08/31/19 23:31 72 17 100 Mechanical Ventilator 24 74 18 24 08/31/19 20:13 88 138/55 08/31/19 20:00 98.2 84 19 138/55 (82) 100 08/31/19 20:00 Mechanical Ventilator 08/31/19 20:00 24 08/31/19 19:52 81 20 24 08/31/19 19:28 81 08/31/19 16:00 98.2 80 16 125/98 (107) 99 08/31/19 16:00 Mechanical Ventilator 08/31/19 16:00 24 08/31/19 15:50 81 08/31/19 14:45 77 19 24 08/31/19 13:25 57 14 98 08/31/19 12:00 97.5 86 28 152/64 (93) 98 08/31/19 12:00 24 08/31/19 12:00 Mechanical Ventilator 08/31/19 11:47 84 Intake and Output 08/31/19 09/01/19 19:00 07:00 Intake Total 985 ml 1017.5 ml Output Total 2000 ml Balance -1015 ml 1017.5 ml Free Water 80 ml 40 ml IV Total 455 ml 527.5 ml Tube Feeding 450 ml 450 ml Hemodialysis UF 2000 ml Laboratory Tests 08/31/19 12:07: POC Whole Blood Glucose 105 08/31/19 17:12: POC Whole Blood Glucose [Pending] 08/31/19 19:05: White Blood Count 16.2H, Red Blood Count 3.24L, Hemoglobin 8.7L, Hematocrit 27.4L, Mean Corpuscular Volume 84, Mean Corpuscular Hemoglobin 26.8L, Mean Corpuscular Hemoglobin Concent 31.7L, Red Cell Distribution Width 17.7H, Platelet Count 678H, Mean Platelet Volume 5.7L, Neutrophils (%) (Auto) 77.7H, Lymphocytes (%) (Auto) 9.9L, Monocytes (%) (Auto) 8.4, Eosinophils (%) (Auto) 2.3, Basophils (%) (Auto) 1.8 08/31/19 23:33: POC Whole Blood Glucose [Pending] 09/01/19 03:05: White Blood Count 14.5H, Red Blood Count 3.50L, Hemoglobin 9.2L, Hematocrit 29.7L, Mean Corpuscular Volume 85, Mean Corpuscular Hemoglobin 26.3L, Mean Corpuscular Hemoglobin Concent 31.1L, Red Cell Distribution Width 16.5H, Platelet Count 669H, Mean Platelet Volume 6.2L, Neutrophils (%) (Auto) 71.5, Lymphocytes (%) (Auto) 13.2L, Monocytes (%) (Auto) 10.8H, Eosinophils (%) (Auto ) 3.3H, Basophils (%) (Auto) 1.2 09/01/19 05:55: POC Whole Blood Glucose [Pending] Height (Feet): 5 Height (Inches): 10.00 Weight (Pounds): 167 Objective CV RR Trach clean Lungs CTA New Perma Cath RIJ. Old Femoral Rancho still in Rt. Groin! Abd SNT. BS + E No CCE Erica Pichardo MD Sep 01, 2019 11:34
--- NOTE | 2019-09-01 11:45 | NUR ---
NURSE NOTES: Dr. Urias at patient's bedside, right femoral julito catheter tip was removed at bedside, tip was intact, cut and placed in specimen bottle to be sent to lab for culture per Dr. Pichardo's order. Pressure was placed on site for ten minutes. No active bleeding noted, pressure dressing placed, 5 lb sand bag placed on site. Will continue to monitor patient. Julito catheter tip taken to lab for culture.
[2019-09-01 12:00] VITALS: BP 128/40
--- NOTE | 2019-09-01 12:01 | NUR ---
NURSE NOTES: Patient noted with hemodialysis order for 09/03/2019, patient received hemodialysis yesterday 08/31/2019. Clarified if Dr. Pichardo wanted hemodialysis for 09/03/2019, Dr. Pichardo acknowledged and informed this nurse that patient needs to have hemodialysis tomorrow 09/02/2019, acknowledged, inquired if okay to change date of hemodialysis service for tomorrow 09/02/2019, Dr. Pichardo acknowledged and said okay. Hemodialysis service date changed to 09/02/2019 as instructed. Hemodialysis provider notified. Noted. Will continue to monitor patient.
--- NOTE | 2019-09-01 12:15 | NUR ---
NURSE NOTES: Catheter tip of julito catheter was sent to lab for culture per Dr. Pichardo's orders. Noted.
--- NOTE | 2019-09-01 12:56 | NUR ---
NURSE NOTES: Called [facility] Nephrology and spoke with Rob, informed Rob patient has order for hemodialysis tomorrow 09/02/2019. Rob acknowledged and informed this nurse that hemodialysis nurse will be notified. Noted. Charge nurse aware. Will continue to monitor patient.
--- NOTE | 2019-09-01 13:10 | NUR ---
[employer] NOTES RECEIVED A DENIAL FROM [facility]. PLACED A CALL TO HARPER LARIOS MADE AWARE OF THE DENIAL RECEIVED, PER HARPER THIS IS NOT A DENIAL OF PAYMENT HOWEVER IT'S JUST TO NOTIFY DIGNITY THAT THIS PATIENT IS STABLE FOR DISCHARGE, HOWEVER THERE IS A BARRIER TO DC. INPATIENT WITH [facility] AUTHORIZATION. HOSPITAL WILL BE PAID ADMINISTRATIVE DAYS. DISCHARGE PLANNING ONGOING.
--- NOTE | 2019-09-01 13:12 | NUR ---
RD ASSESSMENT & RECOMMENDATIONS SEE CARE ACTIVITY FOR COMPLETE ASSESSMENT DAILY ESTIMATED NEEDS: Needs based on Renal, critical care, wound/ 61kg 22-30 kcals/kg 3955-6022 total kcals 1.25-2 g protein/kg 76-122 g total protein Fluid per MD, now on HD NUTRITION DIAGNOSIS: * Swallowing difficulty R/T respiratory failure, dysphagia as evidenced by trach/vent dep, PEG dep * Increased kcal/prot needs R/T wound healing as evidenced by admitted w/ multiple pressure injuries including full thickness wounds at junction of Shaft of penis, dorsal scrotum, R elbow, and DTPI @ L buttocks. CURRENT TF:Nepro @ 45ml/hr x 24 hrs ENTERAL NUTRITION RECOMMENDATIONS: NEPRO @ 40ml/hr x 24 hrs to provide 960ml, 1728kcal , 78g prot, 697ml free water * Decrease goal rate to 40ml/hr x 24hrs -> meets 100% est kcal/prot needs * HOB over 30 degrees/ water flush per MD WITH CONTINUED DIARRHEA AND CONSISTENTLY LOW LYTES, consider TF change to carb controlled, elemental TF Vital AF 1.2-> rec goal rate of 55ml/hr x 24 hrs to provide 1320ml, 1584kcal, 99g prot, 1070ml free water, 2228mg K and 1114mg phos ADDITIONAL RECOMMENDATIONS: * Per SNF: HT=63" EY=961 lbs (vs EMR wt of 166lbs) -> obtain re-calibrated bedscale wt, rec daily wt monitoring * Wound healing: continue Nephrovite x 1 and Garo BID Vit C dosing per Nephro * Monitor renal fxn and lytes-> pt now on HD Phos 1.5, rec repletion * Add probiotics to help alleviate diarrhea
--- NOTE | 2019-09-01 13:20 | NUR ---
CASE MANAGEMENT: REVIEW 09/01/2019 SI:ANEMIA. GIB VS: T 98.2 HR 84 RR 16 B/P 138/56 SATS 100% ON MECH VENT FIO2 24 LABS: WBC 14.5 GLU 208 IS:DEXTROSE IV @ 50 ML/HR LIPITOR PO QHS LONITEN GT QD LOPRESSOR GT Q12H CEFEPIME IV Q24H INSULIN ASPART SUBQ Q6H SDU DCP: SNF
--- NOTE | 2019-09-01 13:27 | NUR ---
DISCHARGE PLANNING: NOTE CALL BACK RECEIVED FROM HARPER @ [employer] HEP PANEL,TSPOT RESULTS, AND EXISTING HD ORDER FROM MD RAZO FAXED TO [facility] F: [phone] T: [phone] X 1868 SNF PLACEMENT AND HD CHAIR TIME PLANNING ONGOING Addendum: 09/01/19 at 1706 by Jessy Gonzalez CM HARPER CONFIRMED THAT REQUESTED CLINICALS WERE RECEIVED FOR THIS PATIENT AND HD/SUBACUTE PLACEMENT IS PENDING
--- NOTE | 2019-09-01 13:27 | NUR ---
NURSE NOTES: As per Dr. Urias's instructions contacted and notified MD 1 hour after removal of right femoral julito catheter, no active bleeding noted on site, pressure dressing and sandbag kept in placed. Dr. Urias acknowledged and instructed to remove sandbag from site. Kept pressure dressing in placed. Will continue to monitor patient.
--- NOTE | 2019-09-01 14:14 | Surgery Progress Note ---
Surgery Progress Note Subjective Procedure Performed Right femoral temporary hemodialysis catheter insertion Additional Comments right fem line removed Objective Last 24 Hour Vital Signs Date Time Temp Pulse Resp B/P (MAP) Pulse Ox O2 Delivery O2 Flow Rate FiO2 09/01/19 12:00 Mechanical Ventilator 09/01/19 12:00 97.9 72 16 128/40 (69) 96 09/01/19 12:00 24 09/01/19 11:45 71 09/01/19 11:17 69 18 100 Mechanical Ventilator 24 72 18 24 09/01/19 08:21 138/56 09/01/19 08:20 84 138/56 09/01/19 08:08 81 09/01/19 08:00 Mechanical Ventilator 09/01/19 08:00 98.2 84 16 138/56 (83) 100 09/01/19 08:00 24 09/01/19 07:45 86 22 24 09/01/19 04:00 99.3 79 15 134/59 (84) 100 09/01/19 04:00 24 09/01/19 04:00 Mechanical Ventilator 09/01/19 03:33 79 09/01/19 03:00 71 15 24 09/01/19 00:00 98.4 74 19 143/68 (93) 100 09/01/19 00:00 Mechanical Ventilator 08/31/19 23:59 80 08/31/19 23:31 72 17 100 Mechanical Ventilator 24 74 18 24 08/31/19 20:13 88 138/55 08/31/19 20:00 98.2 84 19 138/55 (82) 100 08/31/19 20:00 Mechanical Ventilator 08/31/19 20:00 24 08/31/19 19:52 81 20 24 08/31/19 19:28 81 08/31/19 16:00 98.2 80 16 125/98 (107) 99 08/31/19 16:00 Mechanical Ventilator 08/31/19 16:00 24 08/31/19 15:50 81 08/31/19 14:45 77 19 24 I&O Intake and Output 08/31/19 09/01/19 19:00 07:00 Intake Total 985 ml 1017.5 ml Output Total 2000 ml Balance -1015 ml 1017.5 ml Free Water 80 ml 40 ml IV Total 455 ml 527.5 ml Tube Feeding 450 ml 450 ml Hemodialysis UF 2000 ml Dressing: dry, other Wound: clean, other Cardiovascular: RSR Respiratory: decreased breath sounds Abdomen: soft, non-tender Extremities: edema, no tenderness, no cyanosis, other Laboratory Tests Test 08/31/19 17:12 08/31/19 19:05 08/31/19 23:33 09/01/19 03:05 POC Whole Blood Glucose Pending Pending White Blood Count 16.2 K/UL (4.8-10.8) H 14.5 K/UL (4.8-10.8) H Red Blood Count 3.24 M/UL (4.70-6.10) L 3.50 M/UL (4.70-6.10) L Hemoglobin 8.7 G/DL (14.2-18.0) L 9.2 G/DL (14.2-18.0) L Hematocrit 27.4 % (42.0-52.0) L 29.7 % (42.0-52.0) L Mean Corpuscular Volume 84 FL (80-99) 85 FL (80-99) Mean Corpuscular Hemoglobin 26.8 PG (27.0-31.0) L 26.3 PG (27.0-31.0) L Mean Corpuscular Hemoglobin Concent 31.7 G/DL (32.0-36.0) L 31.1 G/DL (32.0-36.0) L Red Cell Distribution Width 17.7 % (11.6-14.8) H 16.5 % (11.6-14.8) H Platelet Count 678 K/UL (150-450) H 669 K/UL (150-450) H Mean Platelet Volume 5.7 FL (6.5-10.1) L 6.2 FL (6.5-10.1) L Neutrophils (%) (Auto) 77.7 % (45.0-75.0) H 71.5 % (45.0-75.0) Lymphocytes (%) (Auto) 9.9 % (20.0-45.0) L 13.2 % (20.0-45.0) L Monocytes (%) (Auto) 8.4 % (1.0-10.0) 10.8 % (1.0-10.0) H Eosinophils (%) (Auto) 2.3 % (0.0-3.0) 3.3 % (0.0-3.0) H Basophils (%) (Auto) 1.8 % (0.0-2.0) 1.2 % (0.0-2.0) Test 09/01/19 05:55 09/01/19 12:22 POC Whole Blood Glucose Pending 208 MG/DL (74-106) H Plan Problems: (1) Anemia (2) Hyponatremia (3) Leukocytosis Assessment & Plan: Tracheostomy, left chest pacemaker are again demonstrated. There is bilateral interstitial and airspace disease and bilateral pleural fluid again demonstrated. This appears more severe than on the prior study. Bilateral interstitial and airspace infiltrates versus edema. Bilateral pleural effusions Leukocytosis, anemia, tachycardia, abnormal labs. Wound evaluated and likely etiology of patient's sepsis. Leukocytosis etiology work-up antibiotics per infectious disease Appreciate nephrology input transfuse with dialysis We will follow with recommendations thank you allowing participation's care plan HD access temp HD discussed with medical teams line okay HD as per renal persistent leukocytosis flow cyto noted improving trending down right fem line removed (4) Ventilator dependent (5) Right lower lobe pneumonia (6) Hypokalemia (7) Hyperkalemia (8) Anasarca (9) Decubitus skin ulcer Assessment & Plan: pt presented on admission with generalized edemae.Skin assessed under tracheostomy and no areas of concerns noted. GT Insertion is marginally erythematous with small amt slough at stoma. Unstageable Pressure Injury R elbow. Base of wound is 100% yellow slough, Borders are erythematous. Wound oozing small amt haemopurulent exudate.Darker skin tone without elevation in skin temp or erythema periwound. Pt's penis and scrotum are grossly edematous and enlarged and weeping serous exudate from numerous sites both from penis and scrotum. Two small open wounds noted at base of at base of shaft of penis ,and contreras aspect of scrotum. Both wounds oozing large amt sanguineous and serosanguineous exudate. Multiple open wounds with Biofilm at base of each wounds noted to contreras/lateral,inferior and posterior aspects of scrotum. These wounds noted to be oozing moderate amts of serosanguineous exudate. Hypertrophic scar with scattered areas of hyperpigmentation noted to Sacrum. DTPI noted to L Buttocks (L)7cm x (W)9cm. Base of wound is purple and indurated.Darker skin tone without erythema, induration or fluctuance R and L ischial tuberosities. Both heels are boggy with non-blanchable erythema. Tx.Plan: Cleanse wound R elbow with Saline. Apply TheraHoney, Apply Moisture Barrier Paste periwound. Cover with Optifoam drsg.Change Daily and prn. Wash GT site with soap and water.Pat dry. Apply Zinc Oxide Paste to GT site Daily. Leave Open to Air. Apply Zinc Oxide Paste to entire Scrotum, Place ABD pads to R and L lateral, and posterior aspects of scrotum TWICE daily. Apply Cavilon Skin Barrier to malleoli and both Heels. Cover each site with Optifoam drsgs. Change every 7 days and prn. Reposition at least every 2hours or as tolerated. Off-load heels with Pillows. APM/BECCA Mattress overlay. (10) Malnutrition Assessment & Plan: DAILY ESTIMATED NEEDS: Needs based on Renal, critical care, wound/ 61kg 22-30 kcals/kg 7571-4373 total kcals 1.25-2 g protein/kg 76-122 g total protein Fluid per MD, now on HD NUTRITION DIAGNOSIS: * Swallowing difficulty R/T respiratory failure, dysphagia as evidenced by trach/vent dep, PEG dep * Increased kcal/prot needs R/T wound healing as evidenced by admitted w/ multiple pressure injuries including full thickness wounds at junction of Shaft of penis, dorsal scrotum, R elbow, and DTPI @ L buttocks. CURRENT TF:Nepro @ 45ml/hr x 24 hrs ENTERAL NUTRITION RECOMMENDATIONS: NEPRO @ 40ml/hr x 24 hrs to provide 960ml, 1728kcal , 78g prot, 697ml free water * Decrease goal rate to 40ml/hr x 24hrs -> meets 100% est kcal/prot needs * HOB over 30 degrees/ water flush per MD WITH CONTINUED DIARRHEA AND CONSISTENTLY LOW LYTES, consider TF change to carb controlled, elemental TF Vital AF 1.2-> rec goal rate of 55ml/hr x 24 hrs to provide 1320ml, 1584kcal, 99g prot, 1070ml free water, 2228mg K and 1114mg phos ADDITIONAL RECOMMENDATIONS: * Per SNF: HT=63" HB=900 lbs (Vs EMR wt of 166lbs) -> obtain re-calibrated bedscale wt, rec daily wt monitoring * Wound healing: continue Nephrovite x 1 and Garo BID Vit C dosing per Nephro * Monitor renal fxn and lytes-> pt now on HD rec checking f/up phos (0.9* on 08/21) * Add probiotics to help alleviate diarrhea (11) Uremia (12) CKD (chronic kidney disease) stage 5, GFR less than 15 ml/min (13) Colon distention Assessment & Plan: discussed with GI likely functional as having lots of loose bm rectal tube kub f/u Marked distention of the sigmoid colon. 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 No evidence of bowel wall thickening or pneumatosis 12 mm focus of contrast enhancement in the right pectineus muscle. While nonspecific in appearance, appearance raises concern for a possible pseudoaneurysm. Ill- defined thickening of the pectus medius muscle could indicate some intramuscular hemorrhage. The above findings were phoned to Dr. Urias at the time of interpretation Large bilateral pleural effusions Hazy pulmonary parenchymal opacities as well as dense consolidative opacities most likely represent pulmonary edema, but could represent pneumonia Evidence of anasarca elsewhere, with generalized edema of the subcutaneous fat Bladder wall thickening, raises concern for cystitis. Avalos catheter in place Colonic diverticulosis. No evidence of diverticulitis. Tracheostomy Pacemaker Gastrostomy Jonathan Urias Sep 01, 2019 14:14
--- NOTE | 2019-09-01 14:15 | Operative Note - PDOC ---
Operative Note Operative Note Date of Operation/Procedure: Sep 01, 2019 Chief Complaint: diarrhea, heme (+) Pre-op Diagnosis: Renal insufficiency requiring hemodialysis Procedure: Right femoral temporary hemodialysis catheter removal Post-op Diagnosis: same as pre-op Surgeon: jordy Specimen: yes Complications: none Condition: stable Estimated Blood Loss: none Drains: none Implant(s) used?: No Indications for Procedure permacath placed line needs to be removed Description of Procedure patient made comfortable. dressings removed. sutures cut. line removed. tip sent for micro. pressure held for 10 mins until hemostasis. dressings applied. will monitor Jonathan Urias Sep 01, 2019 14:15
--- NOTE | 2019-09-01 14:21 | NUR ---
*-* INSURANCE *-* UPDATED CLINICALS AND REVIEWS HAVE BEEN FAXED TO: ELIN ([employer]) REF# [id number] RIC:HARPER P:[phone] F:[phone]
[2019-09-01 16:00] VITALS: BP 143/57
--- NOTE | 2019-09-01 19:20 | NUR ---
NURSE NOTES: Received report from Srinivas Rn, pt. in bed awake with eyes open- obtunded, no signs or symptoms of acute cardiac or respiratory distress noted, bed alarm on, side rails up x's3 and safety brakes engaged, call light within easy reach, isolation precautions observed, pt. appears to be tolerating current vent settings well- AC 15, TV 450, fio2 at 24%- and peep 5- no distress noted, G tube running Nephro at 45cc/hr- no residual noted, pt. is anuric, pt. appears clean and dry, Rt. hand 22G running D5W at 50cc/hr- IV intact and patent, Rt. side chest Perma cath for HD - intact, safety measures continued, will continue with plan of care.
--- NOTE | 2019-09-01 19:24 | NUR ---
HAND-OFF: Report given to TAMICA Atkinson.
[2019-09-01 20:00] VITALS: BP 125/46
[2019-09-01] MEDS: Epoetin Alfa-EPBX(ESRD on dialysis)10,000 unit/ml vial SUBQ SCH (20:19)
[2019-09-01] MEDS: Dyna-Hex 2% Top Sol 2oz TOPIC SCH (20:19)
[2019-09-01] MEDS: Atorvastatin 20mg tab GT SCH (20:19)
--- NOTE | 2019-09-01 21:34 | General Progress Note ---
Assessment/Plan Assessment/Plan: Assessment - colonoscopy negative to hepatic flexure - small amount of blood in stools after colonoscopy due to biopsies - abnormal LFT - Anemia - leukocytosis - stool OB (+) - EGD --> gastritis - Renal failure - Sepsis / leukocytosis - Anasarca - resp failure, trach - dysphagia, GT - encephalopathy, contracted - poor px Recommendations - Continue TF - Elevate HOB - f/u Biopsies of colon - PPI - abx - supportive care - I will return Wednesday to see pt Subjective Allergies: Coded Allergies: No Known Allergies (Unverified , 06/10/19) Subjective Above noted d/w RN small amount of blood in stool after colonoscopy yesterday tolerating TF H&H stable Objective Last 24 Hour Vital Signs Date Time Temp Pulse Resp B/P (MAP) Pulse Ox O2 Delivery O2 Flow Rate FiO2 09/01/19 20:19 76 125/46 09/01/19 20:00 24 09/01/19 20:00 Mechanical Ventilator 09/01/19 20:00 98.2 76 18 125/46 (72) 100 09/01/19 19:27 75 09/01/19 19:04 73 15 24 09/01/19 16:00 71 09/01/19 16:00 24 09/01/19 16:00 Mechanical Ventilator 09/01/19 16:00 98.1 71 17 143/57 (85) 100 09/01/19 15:10 72 18 24 09/01/19 12:00 Mechanical Ventilator 09/01/19 12:00 97.9 72 16 128/40 (69) 96 09/01/19 12:00 24 09/01/19 11:45 71 09/01/19 11:17 69 18 100 Mechanical Ventilator 24 72 18 24 09/01/19 08:21 138/56 09/01/19 08:20 84 138/56 09/01/19 08:08 81 09/01/19 08:00 Mechanical Ventilator 09/01/19 08:00 98.2 84 16 138/56 (83) 100 09/01/19 08:00 24 09/01/19 07:45 86 22 24 09/01/19 04:00 99.3 79 15 134/59 (84) 100 09/01/19 04:00 24 09/01/19 04:00 Mechanical Ventilator 09/01/19 03:33 79 09/01/19 03:00 71 15 24 09/01/19 00:00 98.4 74 19 143/68 (93) 100 09/01/19 00:00 Mechanical Ventilator 08/31/19 23:59 80 08/31/19 23:31 72 17 100 Mechanical Ventilator 24 74 18 24 Intake and Output 08/31/19 09/01/19 19:00 07:00 Intake Total 985 ml 1062.5 ml Output Total 2000 ml Balance -1015 ml 1062.5 ml Free Water 80 ml 40 ml IV Total 455 ml 527.5 ml Tube Feeding 450 ml 495 ml Hemodialysis UF 2000 ml Laboratory Tests 08/31/19 23:33: POC Whole Blood Glucose [Pending] 09/01/19 03:05: White Blood Count 14.5H, Red Blood Count 3.50L, Hemoglobin 9.2L, Hematocrit 29.7L, Mean Corpuscular Volume 85, Mean Corpuscular Hemoglobin 26.3L, Mean Corpuscular Hemoglobin Concent 31.1L, Red Cell Distribution Width 16.5H, Platelet Count 669H, Mean Platelet Volume 6.2L, Neutrophils (%) (Auto) 71.5, Lymphocytes (%) (Auto) 13.2L, Monocytes (%) (Auto) 10.8H, Eosinophils (%) (Auto ) 3.3H, Basophils (%) (Auto) 1.2 09/01/19 05:55: POC Whole Blood Glucose [Pending] 09/01/19 12:22: POC Whole Blood Glucose 208H 09/01/19 16:41: POC Whole Blood Glucose 173H Height (Feet): 5 Height (Inches): 10.00 Weight (Pounds): 167 Objective Debilitated AA man NCAT (+) trach coarse BS RR abd distended, anasarca, (+) GT ext (+) edema contracted Ronny Mustafa MD Sep 01, 2019 21:34
--- NOTE | 2019-09-01 23:17 | NUR ---
NURSE NOTES: repositioned and turned pt.- oral care provided, pt. remains stable- VS taken- will continue to monitor pt. and with plan of care.
[2019-09-02] VITALS: BP 122/51
--- NOTE | 2019-09-02 02:00 | NUR ---
NURSE NOTES: repositioned and turned pt.- VS stable - oral care provided, pt. appears to be sating well on current vent settings- full bed bath given and linens changed, pt. remains stable-will continue to monitor pt. and with plan of care.
[2019-09-02 04:00] VITALS: BP 121/50
[2019-09-02] MEDS: NovoLOG Insulin Flexpen SUBQ SCH ×3 (05:17→16:59)
[2019-09-02] MEDS ORDERED: Heparin Sod 1000 units/ml 10ml IV PRN (06:00)
[2019-09-02] MEDS ORDERED: Heparin 1000 units/ml 1ml Vial INJ PRN ×2 (06:00→13:45)
[2019-09-02 06:10] LABS: BASOPHILS % (AUTO) 1.2 % (0.0-2.0); EOSINOPHILS % (AUTO) 6.7 % (0.0-3.0); HEMATOCRIT 28.6 % (42.0-52.0); HEMOGLOBIN 8.8 G/DL (14.2-18.0); MEAN CORPUSCULAR VOLUME 84 FL (80-99); MONOCYTES % (AUTO) 8.6 % (1.0-10.0); NEUTROPHILS % (AUTO) 69.5 % (45.0-75.0); PLATELET COUNT 689 K/UL (150-450); RED BLOOD COUNT 3.39 M/UL (4.70-6.10); RED CELL DISTRIBUTION WIDTH 16.6 % (11.6-14.8); WHITE BLOOD COUNT 12.9 K/UL (4.8-10.8)
[2019-09-02 06:33] LABS: ANION GAP 2 mmol/L (5-15); BLOOD UREA NITROGEN 45 mg/dL (7-18); CALCIUM 8.4 MG/DL (8.5-10.1); CARBON DIOXIDE 33 MMOL/L (21-32); CHLORIDE 98 MMOL/L (98-107); CREATININE 2.2 MG/DL (0.55-1.30); POTASSIUM 3.1 MMOL/L (3.5-5.1); SODIUM 132 MMOL/L (136-145)
--- NOTE | 2019-09-02 06:59 | NUR ---
HAND-OFF: Report given to rosanne RN, pt. remains stable and no signs of distress noted- nurse aware to f/u on any abnromal am labs.
--- NOTE | 2019-09-02 07:37 | NUR ---
NURSE NOTES: Received report from TAMICA Atkinson. Patient in bed resting, no active s/s cardiac, respiratory distress noticed at this time, Patient obtunded, open eyes spontaneously. Patient V paced with HR 71, Trach to Vent Portex 8 AC 15 TV 450 Fio2 24% PEEP 5. GT running Nephro @ 45ml/h. IV on right hand 22G, asymptomatic, patent, intact. IVF D5W running @ 50ml/h. Right chest PermaCath intact. Endorsed HD schedule for today. Endorsed right femoral HD cath removed, no s/s bleeding noticed at this time, dressing intact. Bed in lowest position, side rails upx3, call light within reach, bed alarm on, Will continue to monitor.
--- NOTE | 2019-09-02 07:58 | General Progress Note ---
Assessment/Plan Assessment/Plan: Assessment/Plan Assessment/Plan: Assessment - colonoscopy negative to hepatic flexure - small amount of blood in stools after colonoscopy due to biopsies - abnormal LFT - Anemia - leukocytosis - stool OB (+) - EGD --> gastritis - Renal failure - Sepsis / leukocytosis - Anasarca - resp failure, trach - dysphagia, GT - encephalopathy, contracted - poor px Recommendations - Continue TF - Elevate HOB - f/u Biopsies of colon - PPI - abx - supportive care Subjective ROS Limited/Unobtainable: No Allergies: Coded Allergies: No Known Allergies (Unverified , 06/10/19) Objective Last 24 Hour Vital Signs Date Time Temp Pulse Resp B/P (MAP) Pulse Ox O2 Delivery O2 Flow Rate FiO2 09/02/19 07:03 80 20 24 09/02/19 04:00 Mechanical Ventilator 09/02/19 04:00 97.8 71 18 121/50 (73) 100 09/02/19 04:00 24 09/02/19 03:32 75 09/02/19 03:14 79 16 24 09/02/19 00:00 70 09/02/19 00:00 24 09/02/19 00:00 Mechanical Ventilator 09/02/19 00:00 98.0 70 18 122/51 (74) 100 09/01/19 22:34 69 17 100 Mechanical Ventilator 24 71 17 24 09/01/19 20:19 76 125/46 09/01/19 20:00 24 09/01/19 20:00 Mechanical Ventilator 09/01/19 20:00 98.2 76 18 125/46 (72) 100 09/01/19 19:27 75 09/01/19 19:04 73 15 24 09/01/19 16:00 71 09/01/19 16:00 24 09/01/19 16:00 Mechanical Ventilator 09/01/19 16:00 98.1 71 17 143/57 (85) 100 09/01/19 15:10 72 18 24 09/01/19 12:00 Mechanical Ventilator 09/01/19 12:00 97.9 72 16 128/40 (69) 96 09/01/19 12:00 24 09/01/19 11:45 71 09/01/19 11:17 69 18 100 Mechanical Ventilator 24 72 18 24 09/01/19 08:21 138/56 09/01/19 08:20 84 138/56 09/01/19 08:08 81 09/01/19 08:00 Mechanical Ventilator 09/01/19 08:00 98.2 84 16 138/56 (83) 100 09/01/19 08:00 24 Intake and Output 09/01/19 09/02/19 19:00 07:00 Intake Total 1195 ml 1179 ml Balance 1195 ml 1179 ml Free Water 50 ml IV Total 655 ml 589 ml Tube Feeding 540 ml 540 ml # Bowel Movements 1 Laboratory Tests 09/01/19 12:22: POC Whole Blood Glucose 208H 09/01/19 16:41: POC Whole Blood Glucose 173H 09/01/19 22:49: POC Whole Blood Glucose 198H 09/02/19 05:14: POC Whole Blood Glucose [Pending] 09/02/19 05:15: White Blood Count 12.9H, Red Blood Count 3.39L, Hemoglobin 8.8L, Hematocrit 28.6L, Mean Corpuscular Volume 84, Mean Corpuscular Hemoglobin 26.1L, Mean Corpuscular Hemoglobin Concent 30.9L, Red Cell Distribution Width 16.6H, Platelet Count 689H, Mean Platelet Volume 6.2L, Neutrophils (%) (Auto) 69.5, Lymphocytes (%) (Auto) 14.0L, Monocytes (%) (Auto) 8.6, Eosinophils (%) (Auto) 6.7H, Basophils (%) (Auto) 1.2, Sodium Level 132L, Potassium Level 3.1L, Chloride Level 98, Carbon Dioxide Level 33H, Anion Gap 2L, Blood Urea Nitrogen 45H, Creatinine 2.2H, Estimat Glomerular Filtration Rate 29.1, Glucose Level 191H, Calcium Level 8.4L Height (Feet): 5 Height (Inches): 10.00 Weight (Pounds): 163 General Appearance: no apparent distress EENT: normal ENT inspection Neck: supple Cardiovascular: normal rate Respiratory/Chest: decreased breath sounds Abdomen: normal bowel sounds, non tender, soft Extremities: non-tender Deon Landry MD Sep 02, 2019 07:58
[2019-09-02 08:00] VITALS: BP 133/57
[2019-09-02] MEDS: Cefepime HCl 1 GM in NS 55 ML IVPB SCH (08:15)
[2019-09-02] MEDS: Ascorbic Acid 500mg tab GT SCH (08:15)
[2019-09-02] MEDS: Nephrovite tab (Rena-Vite) GT SCH (08:16)
[2019-09-02] MEDS: Multivitamins W/Minerals 15 ML UDC GT SCH (08:16)
[2019-09-02] MEDS: Vitamin D 1000 IU Tab GT SCH (08:16)
[2019-09-02] MEDS: Zinc Oxide Oint 2oz TOPIC SCH ×2 (08:16→16:59)
[2019-09-02] MEDS: Minoxidil 2.5mg tab GT SCH (08:47)
[2019-09-02] MEDS: Metoprolol Tartrate 100mg tab GT SCH ×2 (08:48→20:36)
--- NOTE | 2019-09-02 09:03 | General Progress Note ---
Assessment/Plan Assessment/Plan: IMPRESSION: 1. anemia. 2. GI bleed. 3. Leukocytosis. 4. Probable sepsis. + BCX 5. Acute on chronic renal failure. 6. Hyponatremia. 7. Severe protein-calorie malnutrition. 8. Significantly elevated C-reactive protein concerning for infectious etiology. 9. Tracheostomy, G-tube. 10. Ventilator dependence. 11. anasarca with bilateral pleural effusion 12. Hematuria PLAN needs placement care noted on vent surgical follow up monitor labs rate control monitor renal function: HD prognosis poor impression, plan, and exam edited and reviewed in detail care discussed with RN Subjective Allergies: Coded Allergies: No Known Allergies (Unverified , 06/10/19) Subjective remains ill on vent on HD Objective Last 24 Hour Vital Signs Date Time Temp Pulse Resp B/P (MAP) Pulse Ox O2 Delivery O2 Flow Rate FiO2 09/02/19 08:48 80 133/57 09/02/19 08:47 133/57 09/02/19 08:00 98.1 80 22 133/57 (82) 100 09/02/19 08:00 24 09/02/19 07:03 80 20 24 09/02/19 04:00 Mechanical Ventilator 09/02/19 04:00 97.8 71 18 121/50 (73) 100 09/02/19 04:00 24 09/02/19 03:32 75 09/02/19 03:14 79 16 24 09/02/19 00:00 70 09/02/19 00:00 24 09/02/19 00:00 Mechanical Ventilator 09/02/19 00:00 98.0 70 18 122/51 (74) 100 09/01/19 22:34 69 17 100 Mechanical Ventilator 24 71 17 24 09/01/19 20:19 76 125/46 09/01/19 20:00 24 09/01/19 20:00 Mechanical Ventilator 09/01/19 20:00 98.2 76 18 125/46 (72) 100 09/01/19 19:27 75 09/01/19 19:04 73 15 24 09/01/19 16:00 71 09/01/19 16:00 24 09/01/19 16:00 Mechanical Ventilator 09/01/19 16:00 98.1 71 17 143/57 (85) 100 09/01/19 15:10 72 18 24 09/01/19 12:00 Mechanical Ventilator 09/01/19 12:00 97.9 72 16 128/40 (69) 96 09/01/19 12:00 24 09/01/19 11:45 71 09/01/19 11:17 69 18 100 Mechanical Ventilator 24 72 18 24 Intake and Output 09/01/19 09/02/19 19:00 07:00 Intake Total 1195 ml 1179 ml Balance 1195 ml 1179 ml Free Water 50 ml IV Total 655 ml 589 ml Tube Feeding 540 ml 540 ml # Bowel Movements 1 Laboratory Tests 09/01/19 12:22: POC Whole Blood Glucose 208H 09/01/19 16:41: POC Whole Blood Glucose 173H 09/01/19 22:49: POC Whole Blood Glucose 198H 09/02/19 05:14: POC Whole Blood Glucose [Pending] 09/02/19 05:15: White Blood Count 12.9H, Red Blood Count 3.39L, Hemoglobin 8.8L, Hematocrit 28.6L, Mean Corpuscular Volume 84, Mean Corpuscular Hemoglobin 26.1L, Mean Corpuscular Hemoglobin Concent 30.9L, Red Cell Distribution Width 16.6H, Platelet Count 689H, Mean Platelet Volume 6.2L, Neutrophils (%) (Auto) 69.5, Lymphocytes (%) (Auto) 14.0L, Monocytes (%) (Auto) 8.6, Eosinophils (%) (Auto) 6.7H, Basophils (%) (Auto) 1.2, Sodium Level 132L, Potassium Level 3.1L, Chloride Level 98, Carbon Dioxide Level 33H, Anion Gap 2L, Blood Urea Nitrogen 45H, Creatinine 2.2H, Estimat Glomerular Filtration Rate 29.1, Glucose Level 191H, Calcium Level 8.4L Height (Feet): 5 Height (Inches): 10.00 Weight (Pounds): 163 Objective GENERAL: Ill-appearing male, chronically debilitated. HEENT: Tracheostomy in midline. Questionable fullness in the submandibular region. LUNGS: Coarse breath sounds. reduced breath sounds CARDIAC: S1, S2. Regular rate and rhythm. ABDOMEN: Soft. G-tube. EXTREMITIES: With noted edema. NEUROLOGICAL: Poorly responsive, weak diffusely. Kain Ramirez MD Sep 02, 2019 09:03
--- NOTE | 2019-09-02 09:15 | NUR ---
NURSE NOTES: Dr. Arndt made aware K level today 3.1, per MD no need of KCl order since patient schedule for HD today.
--- NOTE | 2019-09-02 10:22 | Infectious Diseases Prog Note ---
Assessment/Plan Assessment/Plan antibiotics : cefepime, inhaled colsitin 720 - A 1. VRE UTI s/p rx 2. + blood cultures with coag neg staph likely contaminated 3. respiratory failure 4. leucocytosis improving 5. klebsiella, pseudomonas, providencia pneumonia s/p rx COVID 19 test negative x 2 6. renal failure on HD P 1. d/c cefepime, inhaled colistin 2. observe off antibiotics 3. will follow up cultures Subjective ROS Limited/Unobtainable: Yes Allergies: Coded Allergies: No Known Allergies (Unverified , 06/10/19) Objective Last 24 Hour Vital Signs Date Time Temp Pulse Resp B/P (MAP) Pulse Ox O2 Delivery O2 Flow Rate FiO2 09/02/19 08:48 80 133/57 09/02/19 08:47 133/57 09/02/19 08:00 98.1 80 22 133/57 (82) 100 09/02/19 08:00 24 09/02/19 08:00 Mechanical Ventilator 09/02/19 08:00 79 09/02/19 07:03 80 20 24 09/02/19 04:00 Mechanical Ventilator 09/02/19 04:00 97.8 71 18 121/50 (73) 100 09/02/19 04:00 24 09/02/19 03:32 75 09/02/19 03:14 79 16 24 09/02/19 00:00 70 09/02/19 00:00 24 09/02/19 00:00 Mechanical Ventilator 09/02/19 00:00 98.0 70 18 122/51 (74) 100 09/01/19 22:34 69 17 100 Mechanical Ventilator 24 71 17 24 09/01/19 20:19 76 125/46 09/01/19 20:00 24 09/01/19 20:00 Mechanical Ventilator 09/01/19 20:00 98.2 76 18 125/46 (72) 100 09/01/19 19:27 75 09/01/19 19:04 73 15 24 09/01/19 16:00 71 09/01/19 16:00 24 09/01/19 16:00 Mechanical Ventilator 09/01/19 16:00 98.1 71 17 143/57 (85) 100 09/01/19 15:10 72 18 24 09/01/19 12:00 Mechanical Ventilator 09/01/19 12:00 97.9 72 16 128/40 (69) 96 09/01/19 12:00 24 09/01/19 11:45 71 09/01/19 11:17 69 18 100 Mechanical Ventilator 24 72 18 24 Height (Feet): 5 Height (Inches): 10.00 Weight (Pounds): 163 HEENT: status post trach Respiratory/Chest: lungs clear Cardiovascular: normal rate, regular rhythm, no gallop/murmur Abdomen: soft, non tender, other - GT Extremities: other - + edema, right subclavian catheter Laboratory Tests Test 09/01/19 12:22 09/01/19 16:41 09/01/19 22:49 09/02/19 05:14 POC Whole Blood Glucose 208 MG/DL (74-106) H 173 MG/DL (74-106) H 198 MG/DL (74-106) H Pending Test 09/02/19 05:15 White Blood Count 12.9 K/UL (4.8-10.8) H Red Blood Count 3.39 M/UL (4.70-6.10) L Hemoglobin 8.8 G/DL (14.2-18.0) L Hematocrit 28.6 % (42.0-52.0) L Mean Corpuscular Volume 84 FL (80-99) Mean Corpuscular Hemoglobin 26.1 PG (27.0-31.0) L Mean Corpuscular Hemoglobin Concent 30.9 G/DL (32.0-36.0) L Red Cell Distribution Width 16.6 % (11.6-14.8) H Platelet Count 689 K/UL (150-450) H Mean Platelet Volume 6.2 FL (6.5-10.1) L Neutrophils (%) (Auto) 69.5 % (45.0-75.0) Lymphocytes (%) (Auto) 14.0 % (20.0-45.0) L Monocytes (%) (Auto) 8.6 % (1.0-10.0) Eosinophils (%) (Auto) 6.7 % (0.0-3.0) H Basophils (%) (Auto) 1.2 % (0.0-2.0) Sodium Level 132 MMOL/L (136-145) L Potassium Level 3.1 MMOL/L (3.5-5.1) L Chloride Level 98 MMOL/L (98-107) Carbon Dioxide Level 33 MMOL/L (21-32) H Anion Gap 2 mmol/L (5-15) L Blood Urea Nitrogen 45 mg/dL (7-18) H Creatinine 2.2 MG/DL (0.55-1.30) H Estimat Glomerular Filtration Rate 29.1 mL/min (>60) Glucose Level 191 MG/DL (74-106) H Calcium Level 8.4 MG/DL (8.5-10.1) L Current Medications Medications (Trade) Dose Ordered Sig/Leonel Route PRN Reason Start Time Stop Time Status Last Admin Dose Admin Acetaminophen (Tylenol) 650 mg Q4H PRN GT Mild Pain / fever 08/09/19 05:30 09/08/19 05:29 08/26/19 21:44 Al Hydroxide/Mg Hydroxide (Mylanta) 30 ml FOUR TIMES A DAY PRN GT constipation 08/09/19 06:00 09/08/19 05:29 Ascorbic Acid (Vitamin C) 500 mg DAILY GT 08/09/19 09:00 09/08/19 08:59 09/02/19 08:15 Atorvastatin Calcium (Lipitor) 40 mg BEDTIME GT 08/09/19 21:00 11/07/19 20:59 09/01/19 20:19 Cefepime HCl 1 gm/ Sodium Chloride 55 ml @ 110 mls/hr Q24H IVPB 08/31/19 09:00 09/07/19 08:59 09/02/19 08:15 Chlorhexidine Gluconate (Felipa-Hex 2%) 1 applic DAILY@2000 TOPIC 08/15/19 20:00 11/13/19 19:59 09/01/19 20:19 Clonidine HCl (Catapres Tab) 0.1 mg Q4H PRN GT SBP>150 08/12/19 10:45 11/10/19 06:44 08/27/19 04:39 Colistimethate Sodium (Colistin *inhalation use only*) 75 mg Q12HRT INH 08/27/19 11:00 09/03/19 10:59 09/01/19 22:29 Dextrose 1,000 ml @ 50 mls/hr Q20H IV 08/30/19 14:09 09/29/19 14:08 09/02/19 01:11 Dextrose (Dextrose 50%) 25 ml Q30M PRN IV Hypoglycemia 08/09/19 07:30 11/07/19 07:29 Dextrose (Dextrose 50%) 50 ml Q30M PRN IV Hypoglycemia 08/09/19 07:30 11/07/19 07:29 Epoetin Andreas (Epoetin Andreas(ESRD on dialysis)) 10,000 unit WED-WED-WED SUBQ 08/18/19 21:00 11/16/19 20:59 09/01/19 20:19 Famotidine (Pepcid) 20 mg DAILY GT 08/30/19 09:00 11/28/19 08:59 09/02/19 08:16 Heparin Sodium (Porcine) (Heparin Sod 1000 units/ml 10ml) 500 unit ONCE PRN IV HD 09/02/19 06:00 09/03/19 23:59 Heparin Sodium (Porcine) (Heparin) 1,000 unit POSTHD PRN INJ POST HD 09/02/19 06:00 09/03/19 23:59 Insulin Aspart (NovoLOG) Q6HR SUBQ 08/10/19 00:00 11/07/19 11:29 09/02/19 05:17 Loperamide HCl (Imodium) 2 mg Q4H PRN GT Diarrhea 08/09/19 08:00 09/08/19 07:59 08/29/19 08:56 Metoprolol Tartrate (Lopressor) 200 mg Q12HR GT 08/09/19 09:00 11/07/19 08:59 09/01/19 20:19 Minoxidil (Loniten) 5 mg DAILY GT 08/09/19 09:00 11/07/19 08:59 09/01/19 08:21 Multivitamins (Multivitamins W/ Minerals 15ml Liquid) 15 ml DAILY GT 08/09/19 09:00 09/08/19 08:59 09/02/19 08:16 Sodium Chloride 1,000 ml @ 500 mls/hr Q2H PRN IVLG sbp<90 during hd 09/02/19 06:00 09/03/19 23:59 Vitamin B Complex/ Vit C/Folic Acid (Nephrovite) 1 tab DAILY GT 08/09/19 09:00 09/08/19 08:59 09/02/19 08:16 Vitamin D (Vitamin D) 1,000 intlu DAILY GT 08/09/19 09:00 09/08/19 08:59 09/02/19 08:16 Zinc Oxide (Zinc Oxide) 1 applic BID TOPIC 08/10/19 18:00 11/08/19 17:59 09/02/19 08:16 Farnaz Lyle MD Sep 02, 2019 10:22
--- NOTE | 2019-09-02 10:47 | NUR ---
NURSE NOTES: Per Dr. Urias, no need of pressure with sandbag since no s/s bleeding.
--- NOTE | 2019-09-02 11:46 | NUR ---
NURSE NOTES: Patient received HD , 2L out per HD nurse. BP 114/48, HR 85.
[2019-09-02 12:00] VITALS: BP 114/48
--- NOTE | 2019-09-02 12:07 | Surgery Progress Note ---
Surgery Progress Note Subjective Procedure Performed Right femoral temporary hemodialysis catheter removal Additional Comments no bleeding noted hemostatic labs reviewed receiving HD today Objective Last 24 Hour Vital Signs Date Time Temp Pulse Resp B/P (MAP) Pulse Ox O2 Delivery O2 Flow Rate FiO2 09/02/19 10:48 92 19 24 09/02/19 08:48 80 133/57 09/02/19 08:47 133/57 09/02/19 08:00 98.1 80 22 133/57 (82) 100 09/02/19 08:00 24 09/02/19 08:00 Mechanical Ventilator 09/02/19 08:00 79 09/02/19 07:03 80 20 24 09/02/19 04:00 Mechanical Ventilator 09/02/19 04:00 97.8 71 18 121/50 (73) 100 09/02/19 04:00 24 09/02/19 03:32 75 09/02/19 03:14 79 16 24 09/02/19 00:00 70 09/02/19 00:00 24 09/02/19 00:00 Mechanical Ventilator 09/02/19 00:00 98.0 70 18 122/51 (74) 100 09/01/19 22:34 69 17 100 Mechanical Ventilator 24 71 17 24 09/01/19 20:19 76 125/46 09/01/19 20:00 24 09/01/19 20:00 Mechanical Ventilator 09/01/19 20:00 98.2 76 18 125/46 (72) 100 09/01/19 19:27 75 09/01/19 19:04 73 15 24 09/01/19 16:00 71 09/01/19 16:00 24 09/01/19 16:00 Mechanical Ventilator 09/01/19 16:00 98.1 71 17 143/57 (85) 100 09/01/19 15:10 72 18 24 I&O Intake and Output 09/01/19 09/02/19 19:00 07:00 Intake Total 1195 ml 1179 ml Balance 1195 ml 1179 ml Free Water 50 ml IV Total 655 ml 589 ml Tube Feeding 540 ml 540 ml # Bowel Movements 1 Dressing: other Wound: other Cardiovascular: RSR Respiratory: decreased breath sounds Abdomen: soft, non-tender, present bowel sounds Extremities: edema, no tenderness, no cyanosis Laboratory Tests Test 09/01/19 12:22 09/01/19 16:41 09/01/19 22:49 09/02/19 05:14 POC Whole Blood Glucose 208 MG/DL (74-106) H 173 MG/DL (74-106) H 198 MG/DL (74-106) H Pending Test 09/02/19 05:15 White Blood Count 12.9 K/UL (4.8-10.8) H Red Blood Count 3.39 M/UL (4.70-6.10) L Hemoglobin 8.8 G/DL (14.2-18.0) L Hematocrit 28.6 % (42.0-52.0) L Mean Corpuscular Volume 84 FL (80-99) Mean Corpuscular Hemoglobin 26.1 PG (27.0-31.0) L Mean Corpuscular Hemoglobin Concent 30.9 G/DL (32.0-36.0) L Red Cell Distribution Width 16.6 % (11.6-14.8) H Platelet Count 689 K/UL (150-450) H Mean Platelet Volume 6.2 FL (6.5-10.1) L Neutrophils (%) (Auto) 69.5 % (45.0-75.0) Lymphocytes (%) (Auto) 14.0 % (20.0-45.0) L Monocytes (%) (Auto) 8.6 % (1.0-10.0) Eosinophils (%) (Auto) 6.7 % (0.0-3.0) H Basophils (%) (Auto) 1.2 % (0.0-2.0) Sodium Level 132 MMOL/L (136-145) L Potassium Level 3.1 MMOL/L (3.5-5.1) L Chloride Level 98 MMOL/L (98-107) Carbon Dioxide Level 33 MMOL/L (21-32) H Anion Gap 2 mmol/L (5-15) L Blood Urea Nitrogen 45 mg/dL (7-18) H Creatinine 2.2 MG/DL (0.55-1.30) H Estimat Glomerular Filtration Rate 29.1 mL/min (>60) Glucose Level 191 MG/DL (74-106) H Calcium Level 8.4 MG/DL (8.5-10.1) L Plan Problems: (1) Anemia (2) Hyponatremia (3) Leukocytosis Assessment & Plan: Tracheostomy, left chest pacemaker are again demonstrated. There is bilateral interstitial and airspace disease and bilateral pleural fluid again demonstrated. This appears more severe than on the prior study. Bilateral interstitial and airspace infiltrates versus edema. Bilateral pleural effusions Leukocytosis, anemia, tachycardia, abnormal labs. Wound evaluated and likely etiology of patient's sepsis. Leukocytosis etiology work-up antibiotics per infectious disease Appreciate nephrology input transfuse with dialysis We will follow with recommendations thank you allowing participation's care plan HD access temp HD discussed with medical teams line okay HD as per renal persistent leukocytosis flow cyto noted improving trending down right fem line removed (4) Ventilator dependent (5) Right lower lobe pneumonia (6) Hypokalemia (7) Hyperkalemia (8) Anasarca (9) Decubitus skin ulcer Assessment & Plan: pt presented on admission with generalized edemae.Skin assessed under tracheostomy and no areas of concerns noted. GT Insertion is marginally erythematous with small amt slough at stoma. Unstageable Pressure Injury R elbow. Base of wound is 100% yellow slough, Borders are erythematous. Wound oozing small amt haemopurulent exudate.Darker skin tone without elevation in skin temp or erythema periwound. Pt's penis and scrotum are grossly edematous and enlarged and weeping serous exudate from numerous sites both from penis and scrotum. Two small open wounds noted at base of at base of shaft of penis ,and contreras aspect of scrotum. Both wounds oozing large amt sanguineous and serosanguineous exudate. Multiple open wounds with Biofilm at base of each wounds noted to contreras/lateral,inferior and posterior aspects of scrotum. These wounds noted to be oozing moderate amts of serosanguineous exudate. Hypertrophic scar with scattered areas of hyperpigmentation noted to Sacrum. DTPI noted to L Buttocks (L)7cm x (W)9cm. Base of wound is purple and indurated.Darker skin tone without erythema, induration or fluctuance R and L ischial tuberosities. Both heels are boggy with non-blanchable erythema. Tx.Plan: Cleanse wound R elbow with Saline. Apply TheraHoney, Apply Moisture Barrier Paste periwound. Cover with Optifoam drsg.Change Daily and prn. Wash GT site with soap and water.Pat dry. Apply Zinc Oxide Paste to GT site Daily. Leave Open to Air. Apply Zinc Oxide Paste to entire Scrotum, Place ABD pads to R and L lateral, and posterior aspects of scrotum TWICE daily. Apply Cavilon Skin Barrier to malleoli and both Heels. Cover each site with Optifoam drsgs. Change every 7 days and prn. Reposition at least every 2hours or as tolerated. Off-load heels with Pillows. APM/BECCA Mattress overlay. (10) Malnutrition Assessment & Plan: DAILY ESTIMATED NEEDS: Needs based on Renal, critical care, wound/ 61kg 22-30 kcals/kg [id number] total kcals 1.25-2 g protein/kg 76-122 g total protein Fluid per MD, now on HD NUTRITION DIAGNOSIS: * Swallowing difficulty R/T respiratory failure, dysphagia as evidenced by trach/vent dep, PEG dep * Increased kcal/prot needs R/T wound healing as evidenced by admitted w/ multiple pressure injuries including full thickness wounds at junction of Shaft of penis, dorsal scrotum, R elbow, and DTPI @ L buttocks. CURRENT TF:Nepro @ 45ml/hr x 24 hrs ENTERAL NUTRITION RECOMMENDATIONS: NEPRO @ 40ml/hr x 24 hrs to provide 960ml, 1728kcal , 78g prot, 697ml free water * Decrease goal rate to 40ml/hr x 24hrs -> meets 100% est kcal/prot needs * HOB over 30 degrees/ water flush per MD WITH CONTINUED DIARRHEA AND CONSISTENTLY LOW LYTES, consider TF change to carb controlled, elemental TF Vital AF 1.2-> rec goal rate of 55ml/hr x 24 hrs to provide 1320ml, 1584kcal, 99g prot, 1070ml free water, 2228mg K and 1114mg phos ADDITIONAL RECOMMENDATIONS: * Per SNF: HT=63" IT=669 lbs (Vs EMR wt of 166lbs) -> obtain re-calibrated bedscale wt, rec daily wt monitoring * Wound healing: continue Nephrovite x 1 and Garo BID Vit C dosing per Nephro * Monitor renal fxn and lytes-> pt now on HD rec checking f/up phos (0.9* on 08/21) * Add probiotics to help alleviate diarrhea (11) Uremia (12) CKD (chronic kidney disease) stage 5, GFR less than 15 ml/min (13) Colon distention Assessment & Plan: discussed with GI likely functional as having lots of loose bm rectal tube kub f/u Marked distention of the sigmoid colon. 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 No evidence of bowel wall thickening or pneumatosis 12 mm focus of contrast enhancement in the right pectineus muscle. While nonspecific in appearance, appearance raises concern for a possible pseudoaneurysm. Ill- defined thickening of the pectus medius muscle could indicate some intramuscular hemorrhage. The above findings were phoned to Dr. Urias at the time of interpretation Large bilateral pleural effusions Hazy pulmonary parenchymal opacities as well as dense consolidative opacities most likely represent pulmonary edema, but could represent pneumonia Evidence of anasarca elsewhere, with generalized edema of the subcutaneous fat Bladder wall thickening, raises concern for cystitis. Avalos catheter in place Colonic diverticulosis. No evidence of diverticulitis. Tracheostomy Pacemaker Gastrostomy Jonathan Urias Sep 02, 2019 12:07
--- NOTE | 2019-09-02 12:07 | Hematology/Onc Progress Note ---
Assessment/Plan Assessment/Plan Assessment/recs # Leukocytosis - with multiple infections, VRE UTI, flow is negative --> wbc trend 33-->28-->25->23->22->23->24->17.3-->17-->14->16-->15.6-->14-->14- >13 --> on abx, linezolid and zosyn--> zosyn-->off --> + blood cultures with coag neg staph likely contaminated --> as per id recs --> has ordered a flow cytometry (with pathology) --> does show increased nK cell activity --> JOURDAN 2 and bcr-abl labs ordered (these are send outs) --> plt 585-->613-->649-->669->663 # Anemia due to chronic disease/kidney disease as well, gi bleed + occult + noted --> was on iron in the past, now on hold --> has been started on Epogen sq --> as per renal care --> egd done and shows gastritis --> on ppi --> egd showed gastritis, colo recently done --> hgb 9-->8.7-->7.6-->9.2-->8.9-->9.2->9.3-->8.8->9.9-->9.2 # Respiratory failure --> per pulm, s/p trach --> COVID 19 test negative x 2 # Dysphagia s/p gtube with nepro --> per gi # ESRD with r fem julito --> hd as per renal # Dvt ppx scds Appreciate consultation and dw Rn Subjective Cardiovascular: Denies: no symptoms, chest pain, edema, irregular heart rate, lightheadedness, palpitations, syncope, other Gastrointestinal/Abdominal: Denies: no symptoms, abdomen distended, abdominal pain, black stools, tarry stools, blood in stool, constipated, diarrhea, difficulty swallowing, nausea, poor appetite, poor fluid intake, rectal bleeding , vomiting, other Genitourinary: Denies: no symptoms, burning, discharge, frequency, flank pain, hematuria, incontinence, pain, urgency, other Neurologic/Psychiatric: Denies: no symptoms, anxiety, depressed, emotional problems, headache, numbness, paresthesia, pre-existing deficit, seizure, tingling, tremors, weakness, other Allergies: Coded Allergies: No Known Allergies (Unverified , 06/10/19) All Systems: reviewed and negative except above Subjective 08/15 meds noted, no bleeding, hgb 8.8, wbc 28, path flow pending 08/16 flow pending dw pathologist, results pending, wbc 25, hgb 9 08/17 labs reviewed, meds reviewed, meds noted, no night sweats 08/19 remains obtunded, on vent/trach, no bleeding wbc 21.7 08/20 labs have been reviewed, no bleeding, wbc still elev, path reviewed 08/21 labs are noted, no bleeding, on vent, wbc better 08/22 labs noted, no bleeding, meds reviewed, wbc 24 hgb 7.6 08/23 vent, off abx, c diff negative, h/h stable 08/24 labs reviewed, on abx, wbc 17, hgb 8.9, no hemolysis 08/26 reviewed flow and is negative for leukemia, dw rn 08/27 meds reviewed, no night sweats, matt rn, no major bleeding 08/28 meds reivewed, labs noted 08/29 wbc is stable, approx 15, hgb 8.8, no hemolysis 08/30 labs are noted, is for colo today, hgb 9.9 08/31 right fem julito in place, unchanged, hgb 9.2, gi aware 09/01 labs noted, hgb 8.8, plt >600, no bleeding Objective Objective Current Medications Medications (Trade) Dose Ordered Sig/Leonel Route PRN Reason Start Time Stop Time Status Last Admin Dose Admin Acetaminophen (Tylenol) 650 mg Q4H PRN GT Mild Pain / fever 08/09/19 05:30 09/08/19 05:29 08/26/19 21:44 Al Hydroxide/Mg Hydroxide (Mylanta) 30 ml FOUR TIMES A DAY PRN GT constipation 08/09/19 06:00 09/08/19 05:29 Ascorbic Acid (Vitamin C) 500 mg DAILY GT 08/09/19 09:00 09/08/19 08:59 09/02/19 08:15 Atorvastatin Calcium (Lipitor) 40 mg BEDTIME GT 08/09/19 21:00 11/07/19 20:59 09/01/19 20:19 Chlorhexidine Gluconate (Felipa-Hex 2%) 1 applic DAILY@2000 TOPIC 08/15/19 20:00 11/13/19 19:59 09/01/19 20:19 Clonidine HCl (Catapres Tab) 0.1 mg Q4H PRN GT SBP>150 08/12/19 10:45 11/10/19 06:44 08/27/19 04:39 Dextrose 1,000 ml @ 50 mls/hr Q20H IV 08/30/19 14:09 09/29/19 14:08 09/02/19 01:11 Dextrose (Dextrose 50%) 25 ml Q30M PRN IV Hypoglycemia 08/09/19 07:30 11/07/19 07:29 Dextrose (Dextrose 50%) 50 ml Q30M PRN IV Hypoglycemia 08/09/19 07:30 11/07/19 07:29 Epoetin Andreas (Epoetin Andreas(ESRD on dialysis)) 10,000 unit WED-WED-WED SUBQ 08/18/19 21:00 11/16/19 20:59 09/01/19 20:19 Famotidine (Pepcid) 20 mg DAILY GT 08/30/19 09:00 11/28/19 08:59 09/02/19 08:16 Heparin Sodium (Porcine) (Heparin Sod 1000 units/ml 10ml) 500 unit ONCE PRN IV HD 09/02/19 06:00 09/03/19 23:59 09/02/19 11:24 Heparin Sodium (Porcine) (Heparin) 1,000 unit POSTHD PRN INJ POST HD 09/02/19 06:00 09/03/19 23:59 Insulin Aspart (NovoLOG) Q6HR SUBQ 08/10/19 00:00 11/07/19 11:29 09/02/19 05:17 Loperamide HCl (Imodium) 2 mg Q4H PRN GT Diarrhea 08/09/19 08:00 09/08/19 07:59 08/29/19 08:56 Metoprolol Tartrate (Lopressor) 200 mg Q12HR GT 08/09/19 09:00 11/07/19 08:59 09/01/19 20:19 Minoxidil (Loniten) 5 mg DAILY GT 08/09/19 09:00 11/07/19 08:59 09/01/19 08:21 Multivitamins (Multivitamins W/ Minerals 15ml Liquid) 15 ml DAILY GT 08/09/19 09:00 09/08/19 08:59 09/02/19 08:16 Sodium Chloride 1,000 ml @ 500 mls/hr Q2H PRN IVLG sbp<90 during hd 09/02/19 06:00 09/03/19 23:59 Vitamin B Complex/ Vit C/Folic Acid (Nephrovite) 1 tab DAILY GT 08/09/19 09:00 09/08/19 08:59 09/02/19 08:16 Vitamin D (Vitamin D) 1,000 intlu DAILY GT 08/09/19 09:00 09/08/19 08:59 09/02/19 08:16 Zinc Oxide (Zinc Oxide) 1 applic BID TOPIC 08/10/19 18:00 11/08/19 17:59 09/02/19 08:16 Last 24 Hour Vital Signs Date Time Temp Pulse Resp B/P (MAP) Pulse Ox O2 Delivery O2 Flow Rate FiO2 09/02/19 10:48 92 19 24 09/02/19 08:48 80 133/57 09/02/19 08:47 133/57 09/02/19 08:00 98.1 80 22 133/57 (82) 100 09/02/19 08:00 24 09/02/19 08:00 Mechanical Ventilator 09/02/19 08:00 79 09/02/19 07:03 80 20 24 09/02/19 04:00 Mechanical Ventilator 09/02/19 04:00 97.8 71 18 121/50 (73) 100 09/02/19 04:00 24 09/02/19 03:32 75 09/02/19 03:14 79 16 24 09/02/19 00:00 70 09/02/19 00:00 24 09/02/19 00:00 Mechanical Ventilator 09/02/19 00:00 98.0 70 18 122/51 (74) 100 09/01/19 22:34 69 17 100 Mechanical Ventilator 24 71 17 24 09/01/19 20:19 76 125/46 09/01/19 20:00 24 7/24/20 20:00 Mechanical Ventilator 09/01/19 20:00 98.2 76 18 125/46 (72) 100 09/01/19 19:27 75 09/01/19 19:04 73 15 24 09/01/19 16:00 71 09/01/19 16:00 24 09/01/19 16:00 Mechanical Ventilator 09/01/19 16:00 98.1 71 17 143/57 (85) 100 09/01/19 15:10 72 18 24 09/01/19 12:00 Mechanical Ventilator 09/01/19 12:00 97.9 72 16 128/40 (69) 96 09/01/19 12:00 24 09/01/19 11:45 71 09/01/19 11:17 69 18 100 Mechanical Ventilator 24 72 18 24 09/01/19 08:21 138/56 09/01/19 08:20 84 138/56 09/01/19 08:08 81 09/01/19 08:00 Mechanical Ventilator 09/01/19 08:00 98.2 84 16 138/56 (83) 100 09/01/19 08:00 24 09/01/19 07:45 86 22 24 09/01/19 04:00 99.3 79 15 134/59 (84) 100 09/01/19 04:00 24 09/01/19 04:00 Mechanical Ventilator 09/01/19 03:33 79 09/01/19 03:00 71 15 24 09/01/19 00:00 98.4 74 19 143/68 (93) 100 09/01/19 00:00 Mechanical Ventilator 08/31/19 23:59 80 08/31/19 23:31 72 17 100 Mechanical Ventilator 24 74 18 24 08/31/19 20:13 88 138/55 08/31/19 20:00 98.2 84 19 138/55 (82) 100 08/31/19 20:00 Mechanical Ventilator 08/31/19 20:00 24 08/31/19 19:52 81 20 24 08/31/19 19:28 81 08/31/19 16:00 98.2 80 16 125/98 (107) 99 08/31/19 16:00 Mechanical Ventilator 08/31/19 16:00 24 08/31/19 15:50 81 08/31/19 14:45 77 19 24 08/31/19 13:25 57 14 98 Intake and Output 09/01/19 09/02/19 19:00 07:00 Intake Total 1195 ml 1179 ml Balance 1195 ml 1179 ml Free Water 50 ml IV Total 655 ml 589 ml Tube Feeding 540 ml 540 ml # Bowel Movements 1 Labs Test 08/30/19 17:37 08/30/19 23:55 08/31/19 03:35 08/31/19 05:20 POC Whole Blood Glucose 172 MG/DL (74-106) 138 MG/DL (74-106) 152 MG/DL (74-106) White Blood Count 14.2 K/UL (4.8-10.8) Red Blood Count 3.75 M/UL (4.70-6.10) Hemoglobin 9.9 G/DL (14.2-18.0) Hematocrit 32.0 % (42.0-52.0) Mean Corpuscular Volume 85 FL (80-99) Mean Corpuscular Hemoglobin 26.4 PG (27.0-31.0) Mean Corpuscular Hemoglobin Concent 31.0 G/DL (32.0-36.0) Red Cell Distribution Width 16.9 % (11.6-14.8) Platelet Count 649 K/UL (150-450) Mean Platelet Volume 6.3 FL (6.5-10.1) Neutrophils (%) (Auto) 72.9 % (45.0-75.0) Lymphocytes (%) (Auto) 13.1 % (20.0-45.0) Monocytes (%) (Auto) 9.2 % (1.0-10.0) Eosinophils (%) (Auto) 3.3 % (0.0-3.0) Basophils (%) (Auto) 1.4 % (0.0-2.0) Sodium Level 137 MMOL/L (136-145) Potassium Level 4.1 MMOL/L (3.5-5.1) Chloride Level 100 MMOL/L (98-107) Carbon Dioxide Level 29 MMOL/L (21-32) Anion Gap 8 mmol/L (5-15) Blood Urea Nitrogen 52 mg/dL (7-18) Creatinine 2.2 MG/DL (0.55-1.30) Estimat Glomerular Filtration Rate 29.1 mL/min (>60) Glucose Level 150 MG/DL (74-106) Calcium Level 8.7 MG/DL (8.5-10.1) Phosphorus Level 1.5 MG/DL (2.5-4.9) Test 08/31/19 12:07 08/31/19 17:12 08/31/19 19:05 08/31/19 23:33 POC Whole Blood Glucose 105 MG/DL (74-106) White Blood Count 16.2 K/UL (4.8-10.8) Red Blood Count 3.24 M/UL (4.70-6.10) Hemoglobin 8.7 G/DL (14.2-18.0) Hematocrit 27.4 % (42.0-52.0) Mean Corpuscular Volume 84 FL (80-99) Mean Corpuscular Hemoglobin 26.8 PG (27.0-31.0) Mean Corpuscular Hemoglobin Concent 31.7 G/DL (32.0-36.0) Red Cell Distribution Width 17.7 % (11.6-14.8) Platelet Count 678 K/UL (150-450) Mean Platelet Volume 5.7 FL (6.5-10.1) Neutrophils (%) (Auto) 77.7 % (45.0-75.0) Lymphocytes (%) (Auto) 9.9 % (20.0-45.0) Monocytes (%) (Auto) 8.4 % (1.0-10.0) Eosinophils (%) (Auto) 2.3 % (0.0-3.0) Basophils (%) (Auto) 1.8 % (0.0-2.0) Test 09/01/19 03:05 09/01/19 05:55 09/01/19 12:22 09/01/19 16:41 White Blood Count 14.5 K/UL (4.8-10.8) Red Blood Count 3.50 M/UL (4.70-6.10) Hemoglobin 9.2 G/DL (14.2-18.0) Hematocrit 29.7 % (42.0-52.0) Mean Corpuscular Volume 85 FL (80-99) Mean Corpuscular Hemoglobin 26.3 PG (27.0-31.0) Mean Corpuscular Hemoglobin Concent 31.1 G/DL (32.0-36.0) Red Cell Distribution Width 16.5 % (11.6-14.8) Platelet Count 669 K/UL (150-450) Mean Platelet Volume 6.2 FL (6.5-10.1) Neutrophils (%) (Auto) 71.5 % (45.0-75.0) Lymphocytes (%) (Auto) 13.2 % (20.0-45.0) Monocytes (%) (Auto) 10.8 % (1.0-10.0) Eosinophils (%) (Auto) 3.3 % (0.0-3.0) Basophils (%) (Auto) 1.2 % (0.0-2.0) POC Whole Blood Glucose 208 MG/DL (74-106) 173 MG/DL (74-106) Test 09/01/19 22:49 09/02/19 05:14 09/02/19 05:15 POC Whole Blood Glucose 198 MG/DL (74-106) White Blood Count 12.9 K/UL (4.8-10.8) Red Blood Count 3.39 M/UL (4.70-6.10) Hemoglobin 8.8 G/DL (14.2-18.0) Hematocrit 28.6 % (42.0-52.0) Mean Corpuscular Volume 84 FL (80-99) Mean Corpuscular Hemoglobin 26.1 PG (27.0-31.0) Mean Corpuscular Hemoglobin Concent 30.9 G/DL (32.0-36.0) Red Cell Distribution Width 16.6 % (11.6-14.8) Platelet Count 689 K/UL (150-450) Mean Platelet Volume 6.2 FL (6.5-10.1) Neutrophils (%) (Auto) 69.5 % (45.0-75.0) Lymphocytes (%) (Auto) 14.0 % (20.0-45.0) Monocytes (%) (Auto) 8.6 % (1.0-10.0) Eosinophils (%) (Auto) 6.7 % (0.0-3.0) Basophils (%) (Auto) 1.2 % (0.0-2.0) Sodium Level 132 MMOL/L (136-145) Potassium Level 3.1 MMOL/L (3.5-5.1) Chloride Level 98 MMOL/L (98-107) Carbon Dioxide Level 33 MMOL/L (21-32) Anion Gap 2 mmol/L (5-15) Blood Urea Nitrogen 45 mg/dL (7-18) Creatinine 2.2 MG/DL (0.55-1.30) Estimat Glomerular Filtration Rate 29.1 mL/min (>60) Glucose Level 191 MG/DL (74-106) Calcium Level 8.4 MG/DL (8.5-10.1) Height (Feet): 5 Height (Inches): 10.00 Weight (Pounds): 163 Objective Physical Exam General Appearance: nad, Chronically Ill Head: normocephalic Eyes: right eye PERRL - Will not open left eye ENT: moist mucus membranes Neck: other - submandibular mass R, fairly rigid with resistance to rotation to L, tracheotomy Respiratory: decreased breath sounds, crackles, other - pacemaker, vent+ Cardiovascular: regular rate, rhythm, edema - anasarca Gastrointestinal: non tender, distended, other - G tube Genitourinary: other Musculoskeletal: other - Contractures all extremities Neurologic: sensory intact, motor weakness, responsive Psychiatric: other Skin: Decubitus/Ulcer - Stage III right elbow, stage III left elbow, stage II sacrum, stage III scrotum, warm/dry Fitz Campos MD Sep 02, 2019 12:07
--- NOTE | 2019-09-02 12:57 | Nephrology Progress Note ---
Assessment/Plan Problem List: (1) UTI (urinary tract infection) (2) VRE (vancomycin-resistant Enterococci) infection (3) Hyponatremia (4) CKD (chronic kidney disease) stage 5, GFR less than 15 ml/min (5) Malnutrition (6) Anasarca (7) Decubitus skin ulcer (8) Anemia (9) Ventilator dependent (10) Right lower lobe pneumonia Plan HD 09/01 cont pulm care Subjective ROS Limited/Unobtainable: Yes Objective Objective Last 24 Hour Vital Signs Date Time Temp Pulse Resp B/P (MAP) Pulse Ox O2 Delivery O2 Flow Rate FiO2 09/02/19 12:00 97.0 85 20 114/48 (70) 100 09/02/19 10:48 92 19 24 09/02/19 08:48 80 133/57 09/02/19 08:47 133/57 09/02/19 08:00 98.1 80 22 133/57 (82) 100 09/02/19 08:00 24 09/02/19 08:00 Mechanical Ventilator 09/02/19 08:00 79 09/02/19 07:03 80 20 24 09/02/19 04:00 Mechanical Ventilator 09/02/19 04:00 97.8 71 18 121/50 (73) 100 09/02/19 04:00 24 09/02/19 03:32 75 09/02/19 03:14 79 16 24 09/02/19 00:00 70 09/02/19 00:00 24 09/02/19 00:00 Mechanical Ventilator 09/02/19 00:00 98.0 70 18 122/51 (74) 100 09/01/19 22:34 69 17 100 Mechanical Ventilator 24 71 17 24 09/01/19 20:19 76 125/46 09/01/19 20:00 24 09/01/19 20:00 Mechanical Ventilator 09/01/19 20:00 98.2 76 18 125/46 (72) 100 09/01/19 19:27 75 09/01/19 19:04 73 15 24 09/01/19 16:00 71 09/01/19 16:00 24 09/01/19 16:00 Mechanical Ventilator 09/01/19 16:00 98.1 71 17 143/57 (85) 100 09/01/19 15:10 72 18 24 Intake and Output 09/01/19 09/02/19 19:00 07:00 Intake Total 1195 ml 1179 ml Balance 1195 ml 1179 ml Free Water 50 ml IV Total 655 ml 589 ml Tube Feeding 540 ml 540 ml # Bowel Movements 1 Laboratory Tests 09/01/19 16:41: POC Whole Blood Glucose 173H 09/01/19 22:49: POC Whole Blood Glucose 198H 09/02/19 05:14: POC Whole Blood Glucose [Pending] 09/02/19 05:15: White Blood Count 12.9H, Red Blood Count 3.39L, Hemoglobin 8.8L, Hematocrit 28.6L, Mean Corpuscular Volume 84, Mean Corpuscular Hemoglobin 26.1L, Mean Corpuscular Hemoglobin Concent 30.9L, Red Cell Distribution Width 16.6H, Platelet Count 689H, Mean Platelet Volume 6.2L, Neutrophils (%) (Auto) 69.5, Lymphocytes (%) (Auto) 14.0L, Monocytes (%) (Auto) 8.6, Eosinophils (%) (Auto) 6.7H, Basophils (%) (Auto) 1.2, Sodium Level 132L, Potassium Level 3.1L, Chloride Level 98, Carbon Dioxide Level 33H, Anion Gap 2L, Blood Urea Nitrogen 45H, Creatinine 2.2H, Estimat Glomerular Filtration Rate 29.1, Glucose Level 191H, Calcium Level 8.4L Height (Feet): 5 Height (Inches): 10.00 Weight (Pounds): 163 General Appearance: no apparent distress, other - on vent Cardiovascular: regular rhythm Respiratory/Chest: crackles/rales Abdomen: non tender Extremities: trace edema Neurologic: disoriented Carmelo Frank MD Sep 02, 2019 12:57
[2019-09-02 16:00] VITALS: BP 135/57
--- NOTE | 2019-09-02 16:38 | NUR ---
NURSE NOTES: Dr. Landry made aware patient had a BM orange/red colored soft stool. No new order received at this time.
--- NOTE | 2019-09-02 19:23 | NUR ---
HAND-OFF: Report given to TAMICA Lorenzo. Endorsed plan of care.
--- NOTE | 2019-09-02 19:30 | NUR ---
NURSE NOTES: Received patient from TAMICA العلي. Patient obtunded, responsive to tactile stimuli. Patient observed to be on vent A/C 15, Vt 450, FiO2 24%, P5 with 100% O2 sat. Tolerating vent settings as ordered with no respiratory distress noted. Patient g-tube observed to be clogged but intact running Nepro @ 45 cc/hr. Patient right hand IV is patent running D5W at 50. Made aware of Pacemaker and Right subclav permacath which remains clean and intact. Made aware of skin alterations. Bed kept in lowest and locked position. Bed alarm on. Will continue monitoring.
[2019-09-02 20:00] VITALS: BP 128/86
[2019-09-02] MEDS: Dyna-Hex 2% Top Sol 2oz TOPIC SCH (20:36)
[2019-09-02] MEDS: Atorvastatin 20mg tab GT SCH (20:36)
[2019-09-03] VITALS: BP 134/82
[2019-09-03] MEDS: NovoLOG Insulin Flexpen SUBQ SCH ×4 (00:43→18:00)
[2019-09-03 04:00] VITALS: BP 123/65
--- NOTE | 2019-09-03 06:41 | NUR ---
RESPIRATORY NOTE: Received pt on trach Portex 8.0, secured by trach tie/trach guard. Pt is obtunded and on current vent settings AC 15-450ml-24%-peep 5. Pt is tolerating well the settings, no SOB or resp distress noted. Alarms are set and audible, vent is plugged into the red outlet, ambubag and spare trach kit at bedside. Will continue to monitor.
--- NOTE | 2019-09-03 07:34 | General Progress Note ---
Assessment/Plan Assessment/Plan: Assessment/Plan Assessment/Plan: Assessment - colonoscopy negative to hepatic flexure - small amount of blood in stools after colonoscopy due to biopsies - abnormal LFT - Anemia - leukocytosis - stool OB (+) - EGD --> gastritis - Renal failure - Sepsis / leukocytosis - Anasarca - resp failure, trach - dysphagia, GT - encephalopathy, contracted - poor px Recommendations - Continue TF - Elevate HOB - f/u Biopsies of colon - PPI - abx - supportive care Subjective ROS Limited/Unobtainable: No Allergies: Coded Allergies: No Known Allergies (Unverified , 06/10/19) Objective Last 24 Hour Vital Signs Date Time Temp Pulse Resp B/P (MAP) Pulse Ox O2 Delivery O2 Flow Rate FiO2 09/03/19 06:41 79 21 24 09/03/19 04:00 80 09/03/19 04:00 Mechanical Ventilator 09/03/19 04:00 24 09/03/19 04:00 98.2 70 20 123/65 (84) 99 09/03/19 03:29 79 24 24 09/03/19 00:00 24 09/03/19 00:00 74 09/03/19 00:00 98.1 77 20 134/82 (99) 100 09/03/19 00:00 Mechanical Ventilator 09/02/19 23:43 74 15 24 09/02/19 20:36 83 128/60 09/02/19 20:00 Mechanical Ventilator 09/02/19 20:00 97.9 86 16 128/86 (100) 100 09/02/19 20:00 24 09/02/19 19:21 85 09/02/19 19:02 86 19 24 09/02/19 16:00 Mechanical Ventilator 09/02/19 16:00 98.6 86 19 135/57 (83) 100 09/02/19 16:00 86 09/02/19 16:00 24 09/02/19 15:17 86 19 24 09/02/19 12:00 Mechanical Ventilator 09/02/19 12:00 24 09/02/19 12:00 86 09/02/19 12:00 97.0 85 20 114/48 (70) 100 09/02/19 10:48 92 19 24 09/02/19 08:48 80 133/57 09/02/19 08:47 133/57 09/02/19 08:00 98.1 80 22 133/57 (82) 100 09/02/19 08:00 24 09/02/19 08:00 Mechanical Ventilator 09/02/19 08:00 79 Intake and Output 09/02/19 09/03/19 19:00 07:00 Intake Total 1200 ml 782.5 ml Output Total 2000 ml Balance -800 ml 782.5 ml Free Water 60 ml 20 ml IV Total 600 ml 357.5 ml Tube Feeding 540 ml 405 ml Hemodialysis UF 2000 ml # Bowel Movements 2 1 Laboratory Tests 09/02/19 16:54: POC Whole Blood Glucose [Pending] 09/03/19 00:39: POC Whole Blood Glucose 179H 09/03/19 06:11: POC Whole Blood Glucose 168H Height (Feet): 5 Height (Inches): 10.00 Weight (Pounds): 161 General Appearance: lethargic EENT: normal ENT inspection Neck: supple Cardiovascular: normal rate Respiratory/Chest: decreased breath sounds Abdomen: hypoactive bowel sounds, other - GT in place Extremities: non-tender Deon Landry MD Sep 03, 2019 07:34
--- NOTE | 2019-09-03 08:00 | NUR ---
NURSE NOTES: Pt obtunded in bed on mechanical ventilator. Vitals signs stable with SR @ 78 on monitor. IV access Rh with D5 at 50 ml/hr. G-tube feeding with Nepro running at 45 ml/hr, 0 residual and 50 ml free water flush given go dislodge clog. Both hands edematous raised on pillow. Severe scrotal swelling noted, ZnO cream applied. P200 mattress in place and running. Bed left in low position, side rails up x 3 and call light left near pt's hand.
[2019-09-03 08:18] VITALS: BP 147/53
--- NOTE | 2019-09-03 08:18 | NUR ---
HAND-OFF: Report given to TAMICA La. Pt in stable condition. Endorsed plan of care.
[2019-09-03] MEDS ORDERED: NS 275ml ONE (08:32)
[2019-09-03] MEDS ORDERED: Tubing IV Secondary IV ONE (08:32)
[2019-09-03] MEDS: Metoprolol Tartrate 100mg tab GT SCH ×2 (09:00→20:37)
[2019-09-03] MEDS: Minoxidil 2.5mg tab GT SCH (09:00)
[2019-09-03] MEDS: Ascorbic Acid 500mg tab GT SCH (09:00)
[2019-09-03] MEDS: Vitamin D 1000 IU Tab GT SCH (09:00)
[2019-09-03] MEDS: Zinc Oxide Oint 2oz TOPIC SCH ×2 (09:00→18:09)
[2019-09-03] MEDS: Multivitamins W/Minerals 15 ML UDC GT SCH (09:00)
[2019-09-03] MEDS: Nephrovite tab (Rena-Vite) GT SCH (09:00)
--- NOTE | 2019-09-03 11:34 | Infectious Diseases Prog Note ---
Assessment/Plan Assessment/Plan A: 1. Pneumonia with Klebsiella, pseudomonas & Providencia COVID19 X2 : negative 2. Renal failure, ESRD 3. Leukocytosis improving 4. Respiratory failure, Ventilator dependent 5. Anemia 6. Anasarca 7. 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 Observe off antibiotic Subjective ROS Limited/Unobtainable: Yes Allergies: Coded Allergies: No Known Allergies (Unverified , 06/10/19) Objective Last 24 Hour Vital Signs Date Time Temp Pulse Resp B/P (MAP) Pulse Ox O2 Delivery O2 Flow Rate FiO2 09/03/19 10:30 80 23 24 09/03/19 09:00 78 147/53 09/03/19 09:00 147/53 09/03/19 08:18 24 09/03/19 08:18 98.2 78 12 147/53 (84) 99 09/03/19 08:14 Mechanical Ventilator 09/03/19 08:00 77 09/03/19 06:41 79 21 24 09/03/19 04:00 80 09/03/19 04:00 Mechanical Ventilator 09/03/19 04:00 24 09/03/19 04:00 98.2 70 20 123/65 (84) 99 09/03/19 03:29 79 24 24 09/03/19 00:00 24 09/03/19 00:00 74 09/03/19 00:00 98.1 77 20 134/82 (99) 100 09/03/19 00:00 Mechanical Ventilator 09/02/19 23:43 74 15 24 09/02/19 20:36 83 128/60 09/02/19 20:00 Mechanical Ventilator 09/02/19 20:00 97.9 86 16 128/86 (100) 100 09/02/19 20:00 24 09/02/19 19:21 85 09/02/19 19:02 86 19 24 09/02/19 16:00 Mechanical Ventilator 09/02/19 16:00 98.6 86 19 135/57 (83) 100 09/02/19 16:00 86 09/02/19 16:00 24 09/02/19 15:17 86 19 24 09/02/19 12:00 Mechanical Ventilator 09/02/19 12:00 24 09/02/19 12:00 86 09/02/19 12:00 97.0 85 20 114/48 (70) 100 Height (Feet): 5 Height (Inches): 10.00 Weight (Pounds): 161 HEENT: status post trach Respiratory/Chest: other - on ventilator, few rhonci Cardiovascular: normal rate, other - Permacath Abdomen: soft, non tender, other - GT feeding Extremities: other - edema Neurologic/Psychiatric: aphasia Microbiology Date/Time Source Procedure Growth Status 09/01/19 11:55 Catheter Site Catheter Tip Culture - Preliminary Gram Negative Omar Resulted Laboratory Tests Test 09/02/19 16:54 09/03/19 00:39 09/03/19 06:11 POC Whole Blood Glucose Pending 179 MG/DL (74-106) H 168 MG/DL (74-106) H Current Medications Medications (Trade) Dose Ordered Sig/Leonel Route PRN Reason Start Time Stop Time Status Last Admin Dose Admin Acetaminophen (Tylenol) 650 mg Q4H PRN GT Mild Pain / fever 08/09/19 05:30 09/08/19 05:29 08/26/19 21:44 Al Hydroxide/Mg Hydroxide (Mylanta) 30 ml FOUR TIMES A DAY PRN GT constipation 08/09/19 06:00 09/08/19 05:29 Ascorbic Acid (Vitamin C) 500 mg DAILY GT 08/09/19 09:00 09/08/19 08:59 09/03/19 09:00 Atorvastatin Calcium (Lipitor) 40 mg BEDTIME GT 08/09/19 21:00 11/07/19 20:59 09/02/19 20:36 Chlorhexidine Gluconate (Felipa-Hex 2%) 1 applic DAILY@2000 TOPIC 08/15/19 20:00 11/13/19 19:59 09/02/19 20:36 Clonidine HCl (Catapres Tab) 0.1 mg Q4H PRN GT SBP>150 08/12/19 10:45 11/10/19 06:44 08/27/19 04:39 Dextrose 1,000 ml @ 50 mls/hr Q20H IV 08/30/19 14:09 09/29/19 14:08 09/02/19 22:51 Dextrose (Dextrose 50%) 25 ml Q30M PRN IV Hypoglycemia 08/09/19 07:30 11/07/19 07:29 Dextrose (Dextrose 50%) 50 ml Q30M PRN IV Hypoglycemia 08/09/19 07:30 11/07/19 07:29 Epoetin Andreas (Epoetin Andreas(ESRD on dialysis)) 10,000 unit WED-WED-WED SUBQ 08/18/19 21:00 11/16/19 20:59 09/01/19 20:19 Famotidine (Pepcid) 20 mg DAILY GT 08/30/19 09:00 11/28/19 08:59 09/03/19 09:00 Heparin Sodium (Porcine) (Heparin Sod 1000 units/ml 10ml) 500 unit ONCE PRN IV HD 09/02/19 06:00 09/03/19 23:59 09/02/19 11:24 Insulin Aspart (NovoLOG) Q6HR SUBQ 08/10/19 00:00 11/07/19 11:29 09/03/19 06:16 Loperamide HCl (Imodium) 2 mg Q4H PRN GT Diarrhea 08/09/19 08:00 09/08/19 07:59 08/29/19 08:56 Metoprolol Tartrate (Lopressor) 200 mg Q12HR GT 08/09/19 09:00 11/07/19 08:59 09/03/19 09:00 Minoxidil (Loniten) 5 mg DAILY GT 08/09/19 09:00 11/07/19 08:59 09/03/19 09:00 Multivitamins (Multivitamins W/ Minerals 15ml Liquid) 15 ml DAILY GT 08/09/19 09:00 09/08/19 08:59 09/03/19 09:00 Vitamin B Complex/ Vit C/Folic Acid (Nephrovite) 1 tab DAILY GT 08/09/19 09:00 09/08/19 08:59 09/03/19 09:00 Vitamin D (Vitamin D) 1,000 intlu DAILY GT 08/09/19 09:00 09/08/19 08:59 09/03/19 09:00 Zinc Oxide (Zinc Oxide) 1 applic BID TOPIC 08/10/19 18:00 11/08/19 17:59 09/03/19 09:00 Real De Leon MD Sep 03, 2019 11:34
[2019-09-03 12:00] VITALS: BP 132/65
--- NOTE | 2019-09-03 12:31 | Surgery Progress Note ---
Surgery Progress Note Subjective Procedure Performed Right femoral temporary hemodialysis catheter removal Additional Comments leuckocytosis anemia no hematoma no bleeding Objective Last 24 Hour Vital Signs Date Time Temp Pulse Resp B/P (MAP) Pulse Ox O2 Delivery O2 Flow Rate FiO2 09/03/19 12:22 24 09/03/19 12:21 Mechanical Ventilator 09/03/19 10:30 80 23 24 09/03/19 09:00 78 147/53 09/03/19 09:00 147/53 09/03/19 08:18 24 09/03/19 08:18 98.2 78 12 147/53 (84) 99 09/03/19 08:14 Mechanical Ventilator 09/03/19 08:00 77 09/03/19 06:41 79 21 24 09/03/19 04:00 80 09/03/19 04:00 Mechanical Ventilator 09/03/19 04:00 24 09/03/19 04:00 98.2 70 20 123/65 (84) 99 09/03/19 03:29 79 24 24 09/03/19 00:00 24 09/03/19 00:00 74 09/03/19 00:00 98.1 77 20 134/82 (99) 100 09/03/19 00:00 Mechanical Ventilator 09/02/19 23:43 74 15 24 09/02/19 20:36 83 128/60 09/02/19 20:00 Mechanical Ventilator 09/02/19 20:00 97.9 86 16 128/86 (100) 100 09/02/19 20:00 24 09/02/19 19:21 85 09/02/19 19:02 86 19 24 09/02/19 16:00 Mechanical Ventilator 09/02/19 16:00 98.6 86 19 135/57 (83) 100 09/02/19 16:00 86 09/02/19 16:00 24 09/02/19 15:17 86 19 24 I&O Intake and Output 09/02/19 09/03/19 19:00 07:00 Intake Total 1200 ml 932.5 ml Output Total 2000 ml Balance -800 ml 932.5 ml Free Water 60 ml 20 ml IV Total 600 ml 507.5 ml Tube Feeding 540 ml 405 ml Hemodialysis UF 2000 ml # Bowel Movements 2 1 Dressing: dry Wound: clean Cardiovascular: RSR Respiratory: decreased breath sounds Abdomen: soft, non-tender, present bowel sounds Extremities: no cyanosis Laboratory Tests Test 09/02/19 16:54 09/03/19 00:39 09/03/19 06:11 POC Whole Blood Glucose Pending 179 MG/DL (74-106) H 168 MG/DL (74-106) H Plan Problems: (1) Anemia (2) Hyponatremia (3) Leukocytosis Assessment & Plan: Tracheostomy, left chest pacemaker are again demonstrated. There is bilateral interstitial and airspace disease and bilateral pleural fluid again demonstrated. This appears more severe than on the prior study. Bilateral interstitial and airspace infiltrates versus edema. Bilateral pleural effusions Leukocytosis, anemia, tachycardia, abnormal labs. Wound evaluated and likely etiology of patient's sepsis. Leukocytosis etiology work-up antibiotics per infectious disease Appreciate nephrology input transfuse with dialysis We will follow with recommendations thank you allowing participation's care plan HD access temp HD discussed with medical teams line okay HD as per renal persistent leukocytosis flow cyto noted improving trending down right fem line removed (4) Ventilator dependent (5) Right lower lobe pneumonia (6) Hypokalemia (7) Hyperkalemia (8) Anasarca (9) Decubitus skin ulcer Assessment & Plan: pt presented on admission with generalized edemae.Skin assessed under tracheostomy and no areas of concerns noted. GT Insertion is marginally erythematous with small amt slough at stoma. Unstageable Pressure Injury R elbow. Base of wound is 100% yellow slough, Borders are erythematous. Wound oozing small amt haemopurulent exudate.Darker skin tone without elevation in skin temp or erythema periwound. Pt's penis and scrotum are grossly edematous and enlarged and weeping serous exudate from numerous sites both from penis and scrotum. Two small open wounds noted at base of at base of shaft of penis ,and contreras aspect of scrotum. Both wounds oozing large amt sanguineous and serosanguineous exudate. Multiple open wounds with Biofilm at base of each wounds noted to contreras/lateral,inferior and posterior aspects of scrotum. These wounds noted to be oozing moderate amts of serosanguineous exudate. Hypertrophic scar with scattered areas of hyperpigmentation noted to Sacrum. DTPI noted to L Buttocks (L)7cm x (W)9cm. Base of wound is purple and indurated.Darker skin tone without erythema, induration or fluctuance R and L ischial tuberosities. Both heels are boggy with non-blanchable erythema. Tx.Plan: Cleanse wound R elbow with Saline. Apply TheraHoney, Apply Moisture Barrier Paste periwound. Cover with Optifoam drsg.Change Daily and prn. Wash GT site with soap and water.Pat dry. Apply Zinc Oxide Paste to GT site Daily. Leave Open to Air. Apply Zinc Oxide Paste to entire Scrotum, Place ABD pads to R and L lateral, and posterior aspects of scrotum TWICE daily. Apply Cavilon Skin Barrier to malleoli and both Heels. Cover each site with Optifoam drsgs. Change every 7 days and prn. Reposition at least every 2hours or as tolerated. Off-load heels with Pillows. APM/BECCA Mattress overlay. (10) Malnutrition Assessment & Plan: DAILY ESTIMATED NEEDS: Needs based on Renal, critical care, wound/ 61kg 22-30 kcals/kg 0759-5887 total kcals 1.25-2 g protein/kg 76-122 g total protein Fluid per MD, now on HD NUTRITION DIAGNOSIS: * Swallowing difficulty R/T respiratory failure, dysphagia as evidenced by trach/vent dep, PEG dep * Increased kcal/prot needs R/T wound healing as evidenced by admitted w/ multiple pressure injuries including full thickness wounds at junction of Shaft of penis, dorsal scrotum, R elbow, and DTPI @ L buttocks. CURRENT TF:Nepro @ 45ml/hr x 24 hrs ENTERAL NUTRITION RECOMMENDATIONS: NEPRO @ 40ml/hr x 24 hrs to provide 960ml, 1728kcal , 78g prot, 697ml free water * Decrease goal rate to 40ml/hr x 24hrs -> meets 100% est kcal/prot needs * HOB over 30 degrees/ water flush per MD WITH CONTINUED DIARRHEA AND CONSISTENTLY LOW LYTES, consider TF change to carb controlled, elemental TF Vital AF 1.2-> rec goal rate of 55ml/hr x 24 hrs to provide 1320ml, 1584kcal, 99g prot, 1070ml free water, 2228mg K and 1114mg phos ADDITIONAL RECOMMENDATIONS: * Per SNF: HT=63" QP=766 lbs (Vs EMR wt of 166lbs) -> obtain re-calibrated bedscale wt, rec daily wt monitoring * Wound healing: continue Nephrovite x 1 and Garo BID Vit C dosing per Nephro * Monitor renal fxn and lytes-> pt now on HD rec checking f/up phos (0.9* on 08/21) * Add probiotics to help alleviate diarrhea (11) Uremia (12) CKD (chronic kidney disease) stage 5, GFR less than 15 ml/min (13) Colon distention Assessment & Plan: discussed with GI likely functional as having lots of loose bm rectal tube kub f/u Marked distention of the sigmoid colon. 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 No evidence of bowel wall thickening or pneumatosis 12 mm focus of contrast enhancement in the right pectineus muscle. While nonspecific in appearance, appearance raises concern for a possible pseudoaneurysm. Ill- defined thickening of the pectus medius muscle could indicate some intramuscular hemorrhage. The above findings were phoned to Dr. Urias at the time of interpretation Large bilateral pleural effusions Hazy pulmonary parenchymal opacities as well as dense consolidative opacities most likely represent pulmonary edema, but could represent pneumonia Evidence of anasarca elsewhere, with generalized edema of the subcutaneous fat Bladder wall thickening, raises concern for cystitis. Avalos catheter in place Colonic diverticulosis. No evidence of diverticulitis. Tracheostomy Pacemaker Gastrostomy Jonathan Urias Sep 03, 2019 12:31
--- NOTE | 2019-09-03 12:46 | Hematology/Onc Progress Note ---
Assessment/Plan Assessment/Plan Assessment/recs # Leukocytosis - with multiple infections, VRE UTI, flow is negative --> wbc trend 33-->28-->25->23->22->23->24->17.3-->17-->14->16-->15.6-->14-->14- >13 --> on abx, linezolid and zosyn--> zosyn-->off --> + blood cultures with coag neg staph likely contaminated --> as per id recs --> has ordered a flow cytometry (with pathology) --> does show increased nK cell activity --> JOURDAN 2 and bcr-abl labs ordered (these are send outs) --> plt 585-->613-->649-->669->663 # Anemia due to chronic disease/kidney disease as well, gi bleed + occult + noted --> was on iron in the past, now on hold --> has been started on Epogen sq --> as per renal care --> egd done and shows gastritis --> on ppi --> egd showed gastritis, colo recently done --> hgb 9-->8.7-->7.6-->9.2-->8.9-->9.2->9.3-->8.8->9.9-->9.2 # Respiratory failure --> per pulm, s/p trach --> COVID 19 test negative x 2 # Dysphagia s/p gtube with nepro --> per gi # ESRD with r fem julito --> hd as per renal # Dvt ppx scds Appreciate consultation and dw Rn Subjective Allergies: Coded Allergies: No Known Allergies (Unverified , 06/10/19) All Systems: reviewed and negative except above Subjective 08/15 meds noted, no bleeding, hgb 8.8, wbc 28, path flow pending 08/16 flow pending dw pathologist, results pending, wbc 25, hgb 9 08/17 labs reviewed, meds reviewed, meds noted, no night sweats 08/19 remains obtunded, on vent/trach, no bleeding wbc 21.7 08/20 labs have been reviewed, no bleeding, wbc still elev, path reviewed 08/21 labs are noted, no bleeding, on vent, wbc better 08/22 labs noted, no bleeding, meds reviewed, wbc 24 hgb 7.6 08/23 vent, off abx, c diff negative, h/h stable 08/24 labs reviewed, on abx, wbc 17, hgb 8.9, no hemolysis 08/26 reviewed flow and is negative for leukemia, matt rn 08/27 meds reviewed, no night sweats, matt rn, no major bleeding 08/28 meds reivewed, labs noted 08/29 wbc is stable, approx 15, hgb 8.8, no hemolysis 08/30 labs are noted, is for colo today, hgb 9.9 08/31 right fem julito in place, unchanged, hgb 9.2, gi aware 09/01 labs noted, hgb 8.8, plt >600, no bleeding 09/02 labs noted, no bleeding, with elev wbc still, no new changes Objective Objective Current Medications Medications (Trade) Dose Ordered Sig/Loenel Route PRN Reason Start Time Stop Time Status Last Admin Dose Admin Acetaminophen (Tylenol) 650 mg Q4H PRN GT Mild Pain / fever 08/09/19 05:30 09/08/19 05:29 08/26/19 21:44 Al Hydroxide/Mg Hydroxide (Mylanta) 30 ml FOUR TIMES A DAY PRN GT constipation 08/09/19 06:00 09/08/19 05:29 Ascorbic Acid (Vitamin C) 500 mg DAILY GT 08/09/19 09:00 09/08/19 08:59 09/03/19 09:00 Atorvastatin Calcium (Lipitor) 40 mg BEDTIME GT 08/09/19 21:00 11/07/19 20:59 09/02/19 20:36 Chlorhexidine Gluconate (Felipa-Hex 2%) 1 applic DAILY@2000 TOPIC 08/15/19 20:00 11/13/19 19:59 09/02/19 20:36 Clonidine HCl (Catapres Tab) 0.1 mg Q4H PRN GT SBP>150 08/12/19 10:45 11/10/19 06:44 08/27/19 04:39 Dextrose 1,000 ml @ 50 mls/hr Q20H IV 08/30/19 14:09 09/29/19 14:08 09/02/19 22:51 Dextrose (Dextrose 50%) 25 ml Q30M PRN IV Hypoglycemia 08/09/19 07:30 11/07/19 07:29 Dextrose (Dextrose 50%) 50 ml Q30M PRN IV Hypoglycemia 08/09/19 07:30 11/07/19 07:29 Epoetin Andreas (Epoetin Andreas(ESRD on dialysis)) 10,000 unit SUBQ 08/18/19 21:00 11/16/19 20:59 09/01/19 20:19 Famotidine (Pepcid) 20 mg DAILY GT 08/30/19 09:00 11/28/19 08:59 09/03/19 09:00 Heparin Sodium (Porcine) (Heparin Sod 1000 units/ml 10ml) 500 unit ONCE PRN IV HD 09/02/19 06:00 09/03/19 23:59 09/02/19 11:24 Insulin Aspart (NovoLOG) Q6HR SUBQ 08/10/19 00:00 11/07/19 11:29 09/03/19 06:16 Loperamide HCl (Imodium) 2 mg Q4H PRN GT Diarrhea 08/09/19 08:00 09/08/19 07:59 08/29/19 08:56 Metoprolol Tartrate (Lopressor) 200 mg Q12HR GT 08/09/19 09:00 11/07/19 08:59 09/03/19 09:00 Minoxidil (Loniten) 5 mg DAILY GT 08/09/19 09:00 11/07/19 08:59 09/03/19 09:00 Multivitamins (Multivitamins W/ Minerals 15ml Liquid) 15 ml DAILY GT 08/09/19 09:00 09/08/19 08:59 09/03/19 09:00 Vitamin B Complex/ Vit C/Folic Acid (Nephrovite) 1 tab DAILY GT 08/09/19 09:00 09/08/19 08:59 09/03/19 09:00 Vitamin D (Vitamin D) 1,000 intlu DAILY GT 08/09/19 09:00 09/08/19 08:59 09/03/19 09:00 Zinc Oxide (Zinc Oxide) 1 applic BID TOPIC 08/10/19 18:00 11/08/19 17:59 09/03/19 09:00 Last 24 Hour Vital Signs Date Time Temp Pulse Resp B/P (MAP) Pulse Ox O2 Delivery O2 Flow Rate FiO2 09/03/19 12:22 24 09/03/19 12:21 Mechanical Ventilator 09/03/19 12:00 71 09/03/19 10:30 80 23 24 09/03/19 09:00 78 147/53 09/03/19 09:00 147/53 09/03/19 08:18 24 09/03/19 08:18 98.2 78 12 147/53 (84) 99 09/03/19 08:14 Mechanical Ventilator 09/03/19 08:00 77 09/03/19 06:41 79 21 24 09/03/19 04:00 80 09/03/19 04:00 Mechanical Ventilator 09/03/19 04:00 24 09/03/19 04:00 98.2 70 20 123/65 (84) 99 09/03/19 03:29 79 24 24 09/03/19 00:00 24 09/03/19 00:00 74 09/03/19 00:00 98.1 77 20 134/82 (99) 100 09/03/19 00:00 Mechanical Ventilator 09/02/19 23:43 74 15 24 09/02/19 20:36 83 128/60 09/02/19 20:00 Mechanical Ventilator 09/02/19 20:00 97.9 86 16 128/86 (100) 100 09/02/19 20:00 24 09/02/19 19:21 85 09/02/19 19:02 86 19 24 09/02/19 16:00 Mechanical Ventilator 09/02/19 16:00 98.6 86 19 135/57 (83) 100 09/02/19 16:00 86 09/02/19 16:00 24 09/02/19 15:17 86 19 24 09/02/19 12:00 Mechanical Ventilator 09/02/19 12:00 24 09/02/19 12:00 86 09/02/19 12:00 97.0 85 20 114/48 (70) 100 09/02/19 10:48 92 19 24 09/02/19 08:48 80 133/57 09/02/19 08:47 133/57 09/02/19 08:00 98.1 80 22 133/57 (82) 100 09/02/19 08:00 24 09/02/19 08:00 Mechanical Ventilator 09/02/19 08:00 79 09/02/19 07:03 80 20 24 09/02/19 04:00 Mechanical Ventilator 09/02/19 04:00 97.8 71 18 121/50 (73) 100 09/02/19 04:00 24 09/02/19 03:32 75 09/02/19 03:14 79 16 24 09/02/19 00:00 70 09/02/19 00:00 24 09/02/19 00:00 Mechanical Ventilator 09/02/19 00:00 98.0 70 18 122/51 (74) 100 09/01/19 22:34 69 17 100 Mechanical Ventilator 24 71 17 24 09/01/19 20:19 76 125/46 09/01/19 20:00 24 09/01/19 20:00 Mechanical Ventilator 09/01/19 20:00 98.2 76 18 125/46 (72) 100 09/01/19 19:27 75 09/01/19 19:04 73 15 24 09/01/19 16:00 71 09/01/19 16:00 24 09/01/19 16:00 Mechanical Ventilator 09/01/19 16:00 98.1 71 17 143/57 (85) 100 09/01/19 15:10 72 18 24 Intake and Output 09/02/19 09/03/19 19:00 07:00 Intake Total 1200 ml 932.5 ml Output Total 2000 ml Balance -800 ml 932.5 ml Free Water 60 ml 20 ml IV Total 600 ml 507.5 ml Tube Feeding 540 ml 405 ml Hemodialysis UF 2000 ml # Bowel Movements 2 1 Labs Test 08/31/19 17:12 08/31/19 19:05 08/31/19 23:33 09/01/19 03:05 White Blood Count 16.2 K/UL (4.8-10.8) 14.5 K/UL (4.8-10.8) Red Blood Count 3.24 M/UL (4.70-6.10) 3.50 M/UL (4.70-6.10) Hemoglobin 8.7 G/DL (14.2-18.0) 9.2 G/DL (14.2-18.0) Hematocrit 27.4 % (42.0-52.0) 29.7 % (42.0-52.0) Mean Corpuscular Volume 84 FL (80-99) 85 FL (80-99) Mean Corpuscular Hemoglobin 26.8 PG (27.0-31.0) 26.3 PG (27.0-31.0) Mean Corpuscular Hemoglobin Concent 31.7 G/DL (32.0-36.0) 31.1 G/DL (32.0-36.0) Red Cell Distribution Width 17.7 % (11.6-14.8) 16.5 % (11.6-14.8) Platelet Count 678 K/UL (150-450) 669 K/UL (150-450) Mean Platelet Volume 5.7 FL (6.5-10.1) 6.2 FL (6.5-10.1) Neutrophils (%) (Auto) 77.7 % (45.0-75.0) 71.5 % (45.0-75.0) Lymphocytes (%) (Auto) 9.9 % (20.0-45.0) 13.2 % (20.0-45.0) Monocytes (%) (Auto) 8.4 % (1.0-10.0) 10.8 % (1.0-10.0) Eosinophils (%) (Auto) 2.3 % (0.0-3.0) 3.3 % (0.0-3.0) Basophils (%) (Auto) 1.8 % (0.0-2.0) 1.2 % (0.0-2.0) Test 09/01/19 05:55 09/01/19 12:22 09/01/19 16:41 09/01/19 22:49 POC Whole Blood Glucose 208 MG/DL (74-106) 173 MG/DL (74-106) 198 MG/DL (74-106) Test 09/02/19 05:14 09/02/19 05:15 09/02/19 16:54 09/03/19 00:39 White Blood Count 12.9 K/UL (4.8-10.8) Red Blood Count 3.39 M/UL (4.70-6.10) Hemoglobin 8.8 G/DL (14.2-18.0) Hematocrit 28.6 % (42.0-52.0) Mean Corpuscular Volume 84 FL (80-99) Mean Corpuscular Hemoglobin 26.1 PG (27.0-31.0) Mean Corpuscular Hemoglobin Concent 30.9 G/DL (32.0-36.0) Red Cell Distribution Width 16.6 % (11.6-14.8) Platelet Count 689 K/UL (150-450) Mean Platelet Volume 6.2 FL (6.5-10.1) Neutrophils (%) (Auto) 69.5 % (45.0-75.0) Lymphocytes (%) (Auto) 14.0 % (20.0-45.0) Monocytes (%) (Auto) 8.6 % (1.0-10.0) Eosinophils (%) (Auto) 6.7 % (0.0-3.0) Basophils (%) (Auto) 1.2 % (0.0-2.0) Sodium Level 132 MMOL/L (136-145) Potassium Level 3.1 MMOL/L (3.5-5.1) Chloride Level 98 MMOL/L (98-107) Carbon Dioxide Level 33 MMOL/L (21-32) Anion Gap 2 mmol/L (5-15) Blood Urea Nitrogen 45 mg/dL (7-18) Creatinine 2.2 MG/DL (0.55-1.30) Estimat Glomerular Filtration Rate 29.1 mL/min (>60) Glucose Level 191 MG/DL (74-106) Calcium Level 8.4 MG/DL (8.5-10.1) POC Whole Blood Glucose 179 MG/DL (74-106) Test 09/03/19 06:11 POC Whole Blood Glucose 168 MG/DL (74-106) Height (Feet): 5 Height (Inches): 10.00 Weight (Pounds): 161 Objective Physical Exam General Appearance: nad, Chronically Ill Head: normocephalic Eyes: right eye PERRL - Will not open left eye ENT: moist mucus membranes Neck: other - submandibular mass R, fairly rigid with resistance to rotation to L, tracheotomy Respiratory: decreased breath sounds, crackles, other - pacemaker, vent+ Cardiovascular: regular rate, rhythm, edema - anasarca Gastrointestinal: non tender, distended, other - G tube Genitourinary: other Musculoskeletal: other - Contractures all extremities Neurologic: sensory intact, motor weakness, responsive Psychiatric: other Skin: Decubitus/Ulcer - Stage III right elbow, stage III left elbow, stage II sacrum, stage III scrotum, warm/dry Fitz Campos MD Sep 03, 2019 12:46
--- NOTE | 2019-09-03 12:56 | Nephrology Progress Note ---
Assessment/Plan Problem List: (1) UTI (urinary tract infection) (2) VRE (vancomycin-resistant Enterococci) infection (3) Hyponatremia (4) CKD (chronic kidney disease) stage 5, GFR less than 15 ml/min (5) Malnutrition (6) Anasarca (7) Decubitus skin ulcer (8) Anemia (9) Ventilator dependent (10) Right lower lobe pneumonia Plan HD 09/01 cont pulm care Subjective ROS Limited/Unobtainable: Yes Objective Objective Last 24 Hour Vital Signs Date Time Temp Pulse Resp B/P (MAP) Pulse Ox O2 Delivery O2 Flow Rate FiO2 09/03/19 12:22 24 09/03/19 12:21 Mechanical Ventilator 09/03/19 12:00 71 09/03/19 10:30 80 23 24 09/03/19 09:00 78 147/53 09/03/19 09:00 147/53 09/03/19 08:18 24 09/03/19 08:18 98.2 78 12 147/53 (84) 99 09/03/19 08:14 Mechanical Ventilator 09/03/19 08:00 77 09/03/19 06:41 79 21 24 09/03/19 04:00 80 09/03/19 04:00 Mechanical Ventilator 09/03/19 04:00 24 09/03/19 04:00 98.2 70 20 123/65 (84) 99 09/03/19 03:29 79 24 24 09/03/19 00:00 24 09/03/19 00:00 74 09/03/19 00:00 98.1 77 20 134/82 (99) 100 09/03/19 00:00 Mechanical Ventilator 09/02/19 23:43 74 15 24 09/02/19 20:36 83 128/60 09/02/19 20:00 Mechanical Ventilator 09/02/19 20:00 97.9 86 16 128/86 (100) 100 09/02/19 20:00 24 09/02/19 19:21 85 09/02/19 19:02 86 19 24 09/02/19 16:00 Mechanical Ventilator 09/02/19 16:00 98.6 86 19 135/57 (83) 100 09/02/19 16:00 86 09/02/19 16:00 24 09/02/19 15:17 86 19 24 Intake and Output 09/02/19 09/03/19 19:00 07:00 Intake Total 1200 ml 932.5 ml Output Total 2000 ml Balance -800 ml 932.5 ml Free Water 60 ml 20 ml IV Total 600 ml 507.5 ml Tube Feeding 540 ml 405 ml Hemodialysis UF 2000 ml # Bowel Movements 2 1 Laboratory Tests 09/02/19 16:54: POC Whole Blood Glucose [Pending] 09/03/19 00:39: POC Whole Blood Glucose 179H 09/03/19 06:11: POC Whole Blood Glucose 168H Height (Feet): 5 Height (Inches): 10.00 Weight (Pounds): 161 General Appearance: lethargic, other - on vent Cardiovascular: regular rhythm Respiratory/Chest: crackles/rales Abdomen: no organomegaly Extremities: trace edema Neurologic: unresponsive Carmelo Frank MD Sep 03, 2019 12:56
--- NOTE | 2019-09-03 14:48 | NUR ---
CASE MANAGEMENT:REVIEW 09/03/19 SI: RLL PNA. UTI TRACH/VENT/DIALYSIS 98.2 78 12 147/53 99% ON VENT SUPPORT W/24% FIO2 WBC+12.9 H/H-8.8/28.6 K-3.1 CO2+33 BUN+45 CR+2.2 IS: IVF@50/HR PEPCID GT QD EPOETIN SQ MWF SS INSULIN MINOXIDIL GT QD LOPRESSOR GT Q12 : STEP DOWN UNIT
--- NOTE | 2019-09-03 15:09 | General Progress Note ---
Assessment/Plan Assessment/Plan: IMPRESSION: 1. anemia. 2. GI bleed. 3. Leukocytosis. 4. Probable sepsis. + BCX 5. Acute on chronic renal failure. 6. Hyponatremia. 7. Severe protein-calorie malnutrition. 8. Significantly elevated C-reactive protein concerning for infectious etiology. 9. Tracheostomy, G-tube. 10. Ventilator dependence. 11. anasarca with bilateral pleural effusion 12. Hematuria PLAN needs placement care noted on vent surgical follow up monitor labs rate control monitor renal function: HD prognosis poor impression, plan, and exam edited and reviewed in detail care discussed with RN Subjective Allergies: Coded Allergies: No Known Allergies (Unverified , 06/10/19) Subjective remains ill on vent on HD Objective Last 24 Hour Vital Signs Date Time Temp Pulse Resp B/P (MAP) Pulse Ox O2 Delivery O2 Flow Rate FiO2 09/03/19 12:22 24 09/03/19 12:21 Mechanical Ventilator 09/03/19 12:00 71 09/03/19 10:30 80 23 24 09/03/19 09:00 78 147/53 09/03/19 09:00 147/53 09/03/19 08:18 24 09/03/19 08:18 98.2 78 12 147/53 (84) 99 09/03/19 08:14 Mechanical Ventilator 09/03/19 08:00 77 09/03/19 06:41 79 21 24 09/03/19 04:00 80 09/03/19 04:00 Mechanical Ventilator 09/03/19 04:00 24 09/03/19 04:00 98.2 70 20 123/65 (84) 99 09/03/19 03:29 79 24 24 09/03/19 00:00 24 09/03/19 00:00 74 09/03/19 00:00 98.1 77 20 134/82 (99) 100 09/03/19 00:00 Mechanical Ventilator 09/02/19 23:43 74 15 24 09/02/19 20:36 83 128/60 09/02/19 20:00 Mechanical Ventilator 09/02/19 20:00 97.9 86 16 128/86 (100) 100 09/02/19 20:00 24 09/02/19 19:21 85 09/02/19 19:02 86 19 24 09/02/19 16:00 Mechanical Ventilator 09/02/19 16:00 98.6 86 19 135/57 (83) 100 09/02/19 16:00 86 09/02/19 16:00 24 09/02/19 15:17 86 19 24 Intake and Output 09/02/19 09/03/19 19:00 07:00 Intake Total 1200 ml 932.5 ml Output Total 2000 ml Balance -800 ml 932.5 ml Free Water 60 ml 20 ml IV Total 600 ml 507.5 ml Tube Feeding 540 ml 405 ml Hemodialysis UF 2000 ml # Bowel Movements 2 1 Laboratory Tests 09/02/19 16:54: POC Whole Blood Glucose [Pending] 09/03/19 00:39: POC Whole Blood Glucose 179H 09/03/19 06:11: POC Whole Blood Glucose 168H Height (Feet): 5 Height (Inches): 10.00 Weight (Pounds): 161 Objective GENERAL: Ill-appearing male, chronically debilitated. HEENT: Tracheostomy in midline. Questionable fullness in the submandibular region. LUNGS: Coarse breath sounds. reduced breath sounds CARDIAC: S1, S2. Regular rate and rhythm. ABDOMEN: Soft. G-tube. EXTREMITIES: With noted edema. NEUROLOGICAL: Poorly responsive, weak diffusely. Kain Ramirez MD Sep 03, 2019 15:09
[2019-09-03 15:14] VITALS: BP 132/66
--- NOTE | 2019-09-03 19:00 | NUR ---
RESPIRATORY NOTE: Received pt on AC 15, 450VT, 24%, PEEP +5. Pt is trach-dependent w/ a cuffed, Portex 8 tube. Pt obtunded/disoriented. B/S ovi. rhonchi/diminished, sxn small amounts of thick/thin, pale-yellow secretions. Vent plugged into red outlet, ambubag at bedside. Pt in no apparent distress at this time. Will continue plan of care.
--- NOTE | 2019-09-03 19:40 | NUR ---
NURSE NOTES: received pt from [facility]., pt is awake and obtunded. no SOB noted. vent in place. O2sat is at 99%. gtube site clean, patent, and intact. right hand 22g IV intact, clean, and patent. right subclavian julito intact, clean, and patent. call light within reach. bed at the lowest position, alarmed, and locked. will continue to monitor pt with plan of care.
[2019-09-03 20:00] VITALS: BP 119/70
[2019-09-03] MEDS: Dyna-Hex 2% Top Sol 2oz TOPIC SCH (20:36)
[2019-09-03] MEDS: Atorvastatin 20mg tab GT SCH (20:37)
[2019-09-04] VITALS (7 sets, daily range): BP systolic 127–149; BP diastolic 48–80
[2019-09-04] MEDS: NovoLOG Insulin Flexpen SUBQ SCH ×5 (00:24→23:53)
[2019-09-04 04:53] LABS: ANION GAP 3 mmol/L (5-15); BLOOD UREA NITROGEN 50 mg/dL (7-18); CALCIUM 8.7 MG/DL (8.5-10.1); CARBON DIOXIDE 34 MMOL/L (21-32); CHLORIDE 96 MMOL/L (98-107); CREATININE 2.4 MG/DL (0.55-1.30); POTASSIUM 3.6 MMOL/L (3.5-5.1); SODIUM 133 MMOL/L (136-145)
[2019-09-04 04:55] LABS: HEMATOCRIT 27.4 % (42.0-52.0); HEMOGLOBIN 8.6 G/DL (14.2-18.0); MEAN CORPUSCULAR VOLUME 85 FL (80-99); PLATELET COUNT 689 K/UL (150-450); RED BLOOD COUNT 3.22 M/UL (4.70-6.10); RED CELL DISTRIBUTION WIDTH 16.9 % (11.6-14.8); WHITE BLOOD COUNT 18.5 K/UL (4.8-10.8)
--- NOTE | 2019-09-04 06:45 | NUR ---
NURSE NOTES: left voice mail to Dr. Lyle, regarding elevated WBC 18.5. will wait for call back.
--- NOTE | 2019-09-04 07:10 | NUR ---
NURSE NOTES: Pt in bed awake and obtunded. No acute distress noted. Trach, portex 8, connecting AC 15, 450, 45% and peep of 5 and sating 100%. IV site Left hand 22G running with D5W @50ml/hr patent and intact. Perma cath in right subclavian patent and intact. Side rails x3 up for safety. Call light within easy reach. On rectal tube patent and intact. Will continue plan of care.
--- NOTE | 2019-09-04 07:10 | NUR ---
HAND-OFF: Report given to Min RN., endorsed plan of care, pt remains stable condition at this time.
--- NOTE | 2019-09-04 07:40 | NUR ---
NURSE NOTES: Dr. Mustafa made a round. The episode of diaffhea x5 notified. Tube feeding will be changed to vital AF @50ml/hr for 24hr for due to diarrhea
--- NOTE | 2019-09-04 08:01 | General Progress Note ---
Assessment/Plan Assessment/Plan: IMPRESSION: 1. anemia. 2. GI bleed. 3. Leukocytosis. 4. Probable sepsis. + BCX 5. Acute on chronic renal failure. 6. Hyponatremia. 7. Severe protein-calorie malnutrition. 8. Significantly elevated C-reactive protein concerning for infectious etiology. 9. Tracheostomy, G-tube. 10. Ventilator dependence. 11. anasarca with bilateral pleural effusion 12. Hematuria PLAN needs placement care noted on vent surgical follow up monitor labs rate control monitor renal function: HD prognosis poor impression, plan, and exam edited and reviewed in detail care discussed with RN Subjective ROS Limited/Unobtainable: Yes Allergies: Coded Allergies: No Known Allergies (Unverified , 06/10/19) Subjective remains ill on vent on HD Objective Last 24 Hour Vital Signs Date Time Temp Pulse Resp B/P (MAP) Pulse Ox O2 Delivery O2 Flow Rate FiO2 09/04/19 04:00 98.4 89 16 135/76 (95) 100 09/04/19 04:00 24 09/04/19 04:00 Mechanical Ventilator 09/04/19 03:28 86 09/04/19 03:05 90 18 24 09/04/19 00:00 Mechanical Ventilator 09/04/19 00:00 99.1 86 16 147/80 (102) 99 09/03/19 23:30 86 09/03/19 23:19 81 17 24 09/03/19 20:37 85 119/70 09/03/19 20:00 Mechanical Ventilator 09/03/19 20:00 97.9 83 16 119/70 (86) 100 09/03/19 20:00 24 09/03/19 19:32 82 09/03/19 18:57 82 21 24 09/03/19 16:00 Mechanical Ventilator 09/03/19 16:00 75 09/03/19 16:00 24 09/03/19 15:14 98.4 74 16 132/66 (88) 100 09/03/19 15:01 75 19 24 09/03/19 12:22 24 09/03/19 12:21 Mechanical Ventilator 09/03/19 12:00 99.5 71 17 132/65 (87) 100 09/03/19 12:00 71 09/03/19 10:30 80 23 24 09/03/19 09:00 78 147/53 09/03/19 09:00 147/53 09/03/19 08:18 24 09/03/19 08:18 98.2 78 12 147/53 (84) 99 09/03/19 08:14 Mechanical Ventilator Intake and Output 09/03/19 09/04/19 19:00 07:00 Intake Total 125 ml 1241.666 ml Balance 125 ml 1241.666 ml Free Water 30 ml 60 ml IV Total 50 ml 641.666 ml Tube Feeding 45 ml 540 ml # Bowel Movements 6 Laboratory Tests 09/04/19 00:21: POC Whole Blood Glucose [Pending] 09/04/19 04:01: White Blood Count 18.5H, Red Blood Count 3.22L, Hemoglobin 8.6L, Hematocrit 27.4L, Mean Corpuscular Volume 85, Mean Corpuscular Hemoglobin 26.7L, Mean Corpuscular Hemoglobin Concent 31.4L, Red Cell Distribution Width 16.9H, Platelet Count 689H, Mean Platelet Volume 5.9L, Neutrophils (%) (Auto) , Lymphocytes (%) (Auto) , Monocytes (%) (Auto) , Eosinophils (%) (Auto) , Basophils (%) (Auto) , Neutrophils % (Manual) [Pending], Lymphocytes % (Manual) [Pending], Platelet Estimate [Pending], Platelet Morphology [Pending], Sodium Level 133L, Potassium Level 3.6, Chloride Level 96L, Carbon Dioxide Level 34H, Anion Gap 3L, Blood Urea Nitrogen 50H, Creatinine 2.4H, Estimat Glomerular Filtration Rate 26.3, Glucose Level 169H, Calcium Level 8.7 09/04/19 05:15: POC Whole Blood Glucose 166H Height (Feet): 5 Height (Inches): 10.00 Weight (Pounds): 165 Objective GENERAL: Ill-appearing male, chronically debilitated. HEENT: Tracheostomy in midline. Questionable fullness in the submandibular region. LUNGS: Coarse breath sounds. reduced breath sounds CARDIAC: S1, S2. Regular rate and rhythm. ABDOMEN: Soft. G-tube. EXTREMITIES: With noted edema. NEUROLOGICAL: Poorly responsive, weak diffusely. Kain Ramirez MD Sep 04, 2019 08:01
[2019-09-04] MEDS: Nephrovite tab (Rena-Vite) GT SCH (09:19)
[2019-09-04] MEDS: Multivitamins W/Minerals 15 ML UDC GT SCH (09:19)
[2019-09-04] MEDS: Vitamin D 1000 IU Tab GT SCH (09:21)
[2019-09-04] MEDS: Minoxidil 2.5mg tab GT SCH (09:21)
[2019-09-04] MEDS: Metoprolol Tartrate 100mg tab GT SCH ×2 (09:21→21:11)
[2019-09-04] MEDS: Ascorbic Acid 500mg tab GT SCH (09:21)
[2019-09-04] MEDS: Zinc Oxide Oint 2oz TOPIC SCH ×2 (09:22→17:33)
--- NOTE | 2019-09-04 10:01 | NUR ---
RD ASSESSMENT & RECOMMENDATIONS SEE CARE ACTIVITY FOR COMPLETE ASSESSMENT DAILY ESTIMATED NEEDS: Needs based on Renal, critical care, wound/ 61kg 22-30 kcals/kg 4255-0810 total kcals 1.25-2 g protein/kg 76-122 g total protein Fluid per MD, now on HD NUTRITION DIAGNOSIS: * Swallowing difficulty R/T respiratory failure, dysphagia as evidenced by trach/vent dep, PEG dep * Increased kcal/prot needs R/T wound healing as evidenced by admitted w/ multiple pressure injuries including full thickness wounds at junction of Shaft of penis, dorsal scrotum, R elbow, and DTPI @ L buttocks. CURRENT TF:Vital AF 1.2 @ 50ml/hr x 24 hrs ENTERAL NUTRITION RECOMMENDATIONS: Vital AF 1.2 @ 50ml/hr x 24 hrs to provide 1200ml, 1440kcal,9 0g prot, 973ml free water * Maintain elemental TF of Vital AF 1.2 w/ continued diarrhea -> monitor lytes and renal fxn closely, monitor need for renal T -> TF @ goal will provide 1642mg K and 2025mg Phos * HOB over 30 degrees/ water flush per MD ADDITIONAL RECOMMENDATIONS: * Per SNF: HT=63" NC=131 lbs (vs EMR wt of 166lbs) -> obtain re-calibrated bedscale wt, rec daily wt monitoring * Wound healing: continue Nephrovite x 1 and Garo BID Vit C dosing per Nephro * Monitor renal fxn and lytes closely w/ non-renal TF - previously w/ multiple episodes of low K and phos * Add probiotics to help alleviate diarrhea
--- NOTE | 2019-09-04 10:43 | Infectious Diseases Prog Note ---
Assessment/Plan Assessment/Plan antibiotics : none A 1. gram negative catheter infection s/p removal 2. respiratory failure 3. leucocytosis increased 4. klebsiella, pseudomonas, providencia pneumonia s/p rx COVID 19 test negative x 2 5. renal failure on HD P 1. start zosyn 2. stool for c.diff 3. will follow up cultures Subjective ROS Limited/Unobtainable: Yes Allergies: Coded Allergies: No Known Allergies (Unverified , 06/10/19) Objective Last 24 Hour Vital Signs Date Time Temp Pulse Resp B/P (MAP) Pulse Ox O2 Delivery O2 Flow Rate FiO2 09/04/19 09:21 84 127/48 09/04/19 09:21 127/48 09/04/19 08:00 24 09/04/19 08:00 88 09/04/19 08:00 98.2 84 16 127/48 (74) 100 09/04/19 07:15 90 19 24 09/04/19 04:00 98.4 89 16 135/76 (95) 100 09/04/19 04:00 24 09/04/19 04:00 Mechanical Ventilator 09/04/19 03:28 86 09/04/19 03:05 90 18 24 09/04/19 00:00 Mechanical Ventilator 09/04/19 00:00 99.1 86 16 147/80 (102) 99 09/03/19 23:30 86 09/03/19 23:19 81 17 24 09/03/19 20:37 85 119/70 09/03/19 20:00 Mechanical Ventilator 09/03/19 20:00 97.9 83 16 119/70 (86) 100 09/03/19 20:00 24 09/03/19 19:32 82 09/03/19 18:57 82 21 24 09/03/19 16:00 Mechanical Ventilator 09/03/19 16:00 75 09/03/19 16:00 24 09/03/19 15:14 98.4 74 16 132/66 (88) 100 09/03/19 15:01 75 19 24 09/03/19 12:22 24 09/03/19 12:21 Mechanical Ventilator 09/03/19 12:00 99.5 71 17 132/65 (87) 100 09/03/19 12:00 71 Height (Feet): 5 Height (Inches): 10.00 Weight (Pounds): 165 HEENT: status post trach Respiratory/Chest: lungs clear Cardiovascular: normal rate, regular rhythm, no gallop/murmur Abdomen: soft, non tender, tender - GT Extremities: other - + edema Microbiology Date/Time Source Procedure Growth Status 09/01/19 11:55 Catheter Site Catheter Tip Culture - Preliminary Gram Negative Omar Resulted Laboratory Tests Test 09/04/19 00:21 09/04/19 04:01 09/04/19 05:15 POC Whole Blood Glucose Pending 166 MG/DL (74-106) H White Blood Count 18.5 K/UL (4.8-10.8) H Red Blood Count 3.22 M/UL (4.70-6.10) L Hemoglobin 8.6 G/DL (14.2-18.0) L Hematocrit 27.4 % (42.0-52.0) L Mean Corpuscular Volume 85 FL (80-99) Mean Corpuscular Hemoglobin 26.7 PG (27.0-31.0) L Mean Corpuscular Hemoglobin Concent 31.4 G/DL (32.0-36.0) L Red Cell Distribution Width 16.9 % (11.6-14.8) H Platelet Count 689 K/UL (150-450) H Mean Platelet Volume 5.9 FL (6.5-10.1) L Neutrophils (%) (Auto) % (45.0-75.0) Lymphocytes (%) (Auto) % (20.0-45.0) Monocytes (%) (Auto) % (1.0-10.0) Eosinophils (%) (Auto) % (0.0-3.0) Basophils (%) (Auto) % (0.0-2.0) Differential Total Cells Counted 100 Neutrophils % (Manual) 70 % (45-75) Lymphocytes % (Manual) 10 % (20-45) L Monocytes % (Manual) 15 % (1-10) H Eosinophils % (Manual) 5 % (0-3) H Basophils % (Manual) 0 % (0-2) Band Neutrophils 0 % (0-8) Platelet Estimate Increased H Platelet Morphology Normal Polychromasia 2+ Hypochromasia 1+ Anisocytosis 1+ Sodium Level 133 MMOL/L (136-145) L Potassium Level 3.6 MMOL/L (3.5-5.1) Chloride Level 96 MMOL/L (98-107) L Carbon Dioxide Level 34 MMOL/L (21-32) H Anion Gap 3 mmol/L (5-15) L Blood Urea Nitrogen 50 mg/dL (7-18) H Creatinine 2.4 MG/DL (0.55-1.30) H Estimat Glomerular Filtration Rate 26.3 mL/min (>60) Glucose Level 169 MG/DL (74-106) H Calcium Level 8.7 MG/DL (8.5-10.1) Current Medications Medications (Trade) Dose Ordered Sig/Leonel Route PRN Reason Start Time Stop Time Status Last Admin Dose Admin Acetaminophen (Tylenol) 650 mg Q4H PRN GT Mild Pain / fever 08/09/19 05:30 09/08/19 05:29 08/26/19 21:44 Al Hydroxide/Mg Hydroxide (Mylanta) 30 ml FOUR TIMES A DAY PRN GT constipation 08/09/19 06:00 09/08/19 05:29 Ascorbic Acid (Vitamin C) 500 mg DAILY GT 08/09/19 09:00 09/08/19 08:59 09/04/19 09:21 Atorvastatin Calcium (Lipitor) 40 mg BEDTIME GT 08/09/19 21:00 11/07/19 20:59 09/03/19 20:37 Chlorhexidine Gluconate (Felipa-Hex 2%) 1 applic DAILY@2000 TOPIC 08/15/19 20:00 11/13/19 19:59 09/03/19 20:36 Clonidine HCl (Catapres Tab) 0.1 mg Q4H PRN GT SBP>150 08/12/19 10:45 11/10/19 06:44 08/27/19 04:39 Dextrose 1,000 ml @ 50 mls/hr Q20H IV 08/30/19 14:09 09/29/19 14:08 09/03/19 18:10 Dextrose (Dextrose 50%) 25 ml Q30M PRN IV Hypoglycemia 08/09/19 07:30 11/07/19 07:29 Dextrose (Dextrose 50%) 50 ml Q30M PRN IV Hypoglycemia 08/09/19 07:30 11/07/19 07:29 Epoetin Andreas (Epoetin Andreas(ESRD on dialysis)) 10,000 unit WED-WED-WED SUBQ 08/18/19 21:00 11/16/19 20:59 09/01/19 20:19 Famotidine (Pepcid) 20 mg DAILY GT 08/30/19 09:00 11/28/19 08:59 09/04/19 09:21 Insulin Aspart (NovoLOG) Q6HR SUBQ 08/10/19 00:00 11/07/19 11:29 09/04/19 05:19 Loperamide HCl (Imodium) 2 mg Q4H PRN GT Diarrhea 08/09/19 08:00 09/08/19 07:59 08/29/19 08:56 Metoprolol Tartrate (Lopressor) 200 mg Q12HR GT 08/09/19 09:00 11/07/19 08:59 09/04/19 09:21 Minoxidil (Loniten) 5 mg DAILY GT 08/09/19 09:00 11/07/19 08:59 09/04/19 09:21 Multivitamins (Multivitamins W/ Minerals 15ml Liquid) 15 ml DAILY GT 08/09/19 09:00 09/08/19 08:59 09/04/19 09:19 Vitamin B Complex/ Vit C/Folic Acid (Nephrovite) 1 tab DAILY GT 08/09/19 09:00 09/08/19 08:59 09/04/19 09:19 Vitamin D (Vitamin D) 1,000 intlu DAILY GT 08/09/19 09:00 09/08/19 08:59 09/04/19 09:21 Zinc Oxide (Zinc Oxide) 1 applic BID TOPIC 08/10/19 18:00 11/08/19 17:59 09/04/19 09:22 Farnaz Lyle MD Sep 04, 2019 10:43
--- NOTE | 2019-09-04 11:40 | Hematology/Onc Progress Note ---
Assessment/Plan Assessment/Plan Assessment/recs # Leukocytosis - with multiple infections, VRE UTI, flow is negative --> wbc trend 33-->28-->25->23->22->23->24->17.3-->17-->14->16-->15.6-->14-->14- >13->19 --> on abx, linezolid and zosyn--> zosyn-->off --> + blood cultures with coag neg staph likely contaminated --> as per id recs --> has ordered a flow cytometry (with pathology) --> does show increased nK cell activity --> JOURDAN 2 and bcr-abl labs ordered (these are send outs) --> plt 585-->613-->649-->669->663 # Anemia due to chronic disease/kidney disease as well, gi bleed + occult + noted --> was on iron in the past, now on hold --> has been started on Epogen sq --> as per renal care --> egd done and shows gastritis --> on ppi --> egd showed gastritis, colo recently done --> hgb 9-->8.7-->7.6-->9.2-->8.9-->9.2->9.3-->8.8->9.9-->9.2 # Respiratory failure --> per pulm, s/p trach --> COVID 19 test negative x 2 # Dysphagia s/p gtube with nepro --> per gi # ESRD with r fem julito --> hd as per renal # Dvt ppx scds Appreciate consultation and dw Rn Subjective Genitourinary: Denies: no symptoms, burning, discharge, frequency, flank pain, hematuria, incontinence, pain, urgency, other Neurologic/Psychiatric: Denies: no symptoms, anxiety, depressed, emotional problems, headache, numbness, paresthesia, pre-existing deficit, seizure, tingling, tremors, weakness, other Allergies: Coded Allergies: No Known Allergies (Unverified , 06/10/19) All Systems: reviewed and negative except above Subjective 7/8 meds noted, no bleeding, hgb 8.8, wbc 28, path flow pending 08/16 flow pending dw pathologist, results pending, wbc 25, hgb 9 08/17 labs reviewed, meds reviewed, meds noted, no night sweats 08/19 remains obtunded, on vent/trach, no bleeding wbc 21.7 08/20 labs have been reviewed, no bleeding, wbc still elev, path reviewed 08/21 labs are noted, no bleeding, on vent, wbc better 08/22 labs noted, no bleeding, meds reviewed, wbc 24 hgb 7.6 08/23 vent, off abx, c diff negative, h/h stable 08/24 labs reviewed, on abx, wbc 17, hgb 8.9, no hemolysis 08/26 reviewed flow and is negative for leukemia, dw rn 08/27 meds reviewed, no night sweats, matt rn, no major bleeding 08/28 meds reivewed, labs noted 08/29 wbc is stable, approx 15, hgb 8.8, no hemolysis 08/30 labs are noted, is for colo today, hgb 9.9 08/31 right fem julito in place, unchanged, hgb 9.2, gi aware 09/01 labs noted, hgb 8.8, plt >600, no bleeding 09/02 labs noted, no bleeding, with elev wbc still, no new changes 09/03 meds are noted, no bleeding, labs reviewed hgb 8.6 Objective Objective Current Medications Medications (Trade) Dose Ordered Sig/Leonel Route PRN Reason Start Time Stop Time Status Last Admin Dose Admin Acetaminophen (Tylenol) 650 mg Q4H PRN GT Mild Pain / fever 08/09/19 05:30 09/08/19 05:29 08/26/19 21:44 Al Hydroxide/Mg Hydroxide (Mylanta) 30 ml FOUR TIMES A DAY PRN GT constipation 08/09/19 06:00 09/08/19 05:29 Ascorbic Acid (Vitamin C) 500 mg DAILY GT 08/09/19 09:00 09/08/19 08:59 09/04/19 09:21 Atorvastatin Calcium (Lipitor) 40 mg BEDTIME GT 08/09/19 21:00 11/07/19 20:59 09/03/19 20:37 Chlorhexidine Gluconate (Felipa-Hex 2%) 1 applic DAILY@1999 TOPIC 08/15/19 20:00 11/13/19 19:59 09/03/19 20:36 Clonidine HCl (Catapres Tab) 0.1 mg Q4H PRN GT SBP>150 08/12/19 10:45 11/10/19 06:44 08/27/19 04:39 Dextrose 1,000 ml @ 50 mls/hr Q20H IV 08/30/19 14:09 09/29/19 14:08 09/03/19 18:10 Dextrose (Dextrose 50%) 25 ml Q30M PRN IV Hypoglycemia 08/09/19 07:30 11/07/19 07:29 Dextrose (Dextrose 50%) 50 ml Q30M PRN IV Hypoglycemia 08/09/19 07:30 11/07/19 07:29 Epoetin Andreas (Epoetin Andreas(ESRD on dialysis)) 10,000 unit WED- SUBQ 08/18/19 21:00 11/16/19 20:59 09/01/19 20:19 Famotidine (Pepcid) 20 mg DAILY GT 08/30/19 09:00 11/28/19 08:59 09/04/19 09:21 Insulin Aspart (NovoLOG) Q6HR SUBQ 08/10/19 00:00 11/07/19 11:29 09/04/19 05:19 Loperamide HCl (Imodium) 2 mg Q4H PRN GT Diarrhea 08/09/19 08:00 09/08/19 07:59 08/29/19 08:56 Metoprolol Tartrate (Lopressor) 200 mg Q12HR GT 08/09/19 09:00 11/07/19 08:59 09/04/19 09:21 Minoxidil (Loniten) 5 mg DAILY GT 08/09/19 09:00 11/07/19 08:59 09/04/19 09:21 Multivitamins (Multivitamins W/ Minerals 15ml Liquid) 15 ml DAILY GT 08/09/19 09:00 09/08/19 08:59 09/04/19 09:19 Piperacillin Sod/ Tazobactam Sod 3.375 gm/Dextrose 55 ml @ 13.75 mls/ hr Q8HR IVPB 09/04/19 14:00 09/11/19 13:59 Vitamin B Complex/ Vit C/Folic Acid (Nephrovite) 1 tab DAILY GT 08/09/19 09:00 09/08/19 08:59 09/04/19 09:19 Vitamin D (Vitamin D) 1,000 intlu DAILY GT 08/09/19 09:00 09/08/19 08:59 09/04/19 09:21 Zinc Oxide (Zinc Oxide) 1 applic BID TOPIC 08/10/19 18:00 11/08/19 17:59 09/04/19 09:22 Last 24 Hour Vital Signs Date Time Temp Pulse Resp B/P (MAP) Pulse Ox O2 Delivery O2 Flow Rate FiO2 09/04/19 09:21 84 127/48 09/04/19 09:21 127/48 09/04/19 08:00 24 09/04/19 08:00 Mechanical Ventilator 09/04/19 08:00 88 09/04/19 08:00 98.2 84 16 127/48 (74) 100 09/04/19 07:15 90 19 24 09/04/19 04:00 98.4 89 16 135/76 (95) 100 09/04/19 04:00 24 09/04/19 04:00 Mechanical Ventilator 09/04/19 03:28 86 09/04/19 03:05 90 18 24 09/04/19 00:00 Mechanical Ventilator 09/04/19 00:00 99.1 86 16 147/80 (102) 99 09/03/19 23:30 86 09/03/19 23:19 81 17 24 09/03/19 20:37 85 119/70 09/03/19 20:00 Mechanical Ventilator 09/03/19 20:00 97.9 83 16 119/70 (86) 100 09/03/19 20:00 24 09/03/19 19:32 82 09/03/19 18:57 82 21 24 09/03/19 16:00 Mechanical Ventilator 09/03/19 16:00 75 09/03/19 16:00 24 09/03/19 15:14 98.4 74 16 132/66 (88) 100 09/03/19 15:01 75 19 24 09/03/19 12:22 24 09/03/19 12:21 Mechanical Ventilator 09/03/19 12:00 99.5 71 17 132/65 (87) 100 09/03/19 12:00 71 09/03/19 10:30 80 23 24 09/03/19 09:00 78 147/53 09/03/19 09:00 147/53 09/03/19 08:18 24 09/03/19 08:18 98.2 78 12 147/53 (84) 99 09/03/19 08:14 Mechanical Ventilator 09/03/19 08:00 77 09/03/19 06:41 79 21 24 09/03/19 04:00 80 09/03/19 04:00 Mechanical Ventilator 09/03/19 04:00 24 09/03/19 04:00 98.2 70 20 123/65 (84) 99 09/03/19 03:29 79 24 24 09/03/19 00:00 24 09/03/19 00:00 74 09/03/19 00:00 98.1 77 20 134/82 (99) 100 09/03/19 00:00 Mechanical Ventilator 09/02/19 23:43 74 15 24 09/02/19 20:36 83 128/60 09/02/19 20:00 Mechanical Ventilator 09/02/19 20:00 97.9 86 16 128/86 (100) 100 09/02/19 20:00 24 09/02/19 19:21 85 09/02/19 19:02 86 19 24 09/02/19 16:00 Mechanical Ventilator 09/02/19 16:00 98.6 86 19 135/57 (83) 100 09/02/19 16:00 86 09/02/19 16:00 24 09/02/19 15:17 86 19 24 09/02/19 12:00 Mechanical Ventilator 09/02/19 12:00 24 09/02/19 12:00 86 09/02/19 12:00 97.0 85 20 114/48 (70) 100 Intake and Output 09/03/19 09/04/19 19:00 07:00 Intake Total 125 ml 1241.666 ml Balance 125 ml 1241.666 ml Free Water 30 ml 60 ml IV Total 50 ml 641.666 ml Tube Feeding 45 ml 540 ml # Bowel Movements 6 Labs Test 09/01/19 12:22 09/01/19 16:41 09/01/19 22:49 09/02/19 05:14 POC Whole Blood Glucose 208 MG/DL (74-106) 173 MG/DL (74-106) 198 MG/DL (74-106) Test 09/02/19 05:15 09/02/19 16:54 09/03/19 00:39 09/03/19 06:11 White Blood Count 12.9 K/UL (4.8-10.8) Red Blood Count 3.39 M/UL (4.70-6.10) Hemoglobin 8.8 G/DL (14.2-18.0) Hematocrit 28.6 % (42.0-52.0) Mean Corpuscular Volume 84 FL (80-99) Mean Corpuscular Hemoglobin 26.1 PG (27.0-31.0) Mean Corpuscular Hemoglobin Concent 30.9 G/DL (32.0-36.0) Red Cell Distribution Width 16.6 % (11.6-14.8) Platelet Count 689 K/UL (150-450) Mean Platelet Volume 6.2 FL (6.5-10.1) Neutrophils (%) (Auto) 69.5 % (45.0-75.0) Lymphocytes (%) (Auto) 14.0 % (20.0-45.0) Monocytes (%) (Auto) 8.6 % (1.0-10.0) Eosinophils (%) (Auto) 6.7 % (0.0-3.0) Basophils (%) (Auto) 1.2 % (0.0-2.0) Sodium Level 132 MMOL/L (136-145) Potassium Level 3.1 MMOL/L (3.5-5.1) Chloride Level 98 MMOL/L (98-107) Carbon Dioxide Level 33 MMOL/L (21-32) Anion Gap 2 mmol/L (5-15) Blood Urea Nitrogen 45 mg/dL (7-18) Creatinine 2.2 MG/DL (0.55-1.30) Estimat Glomerular Filtration Rate 29.1 mL/min (>60) Glucose Level 191 MG/DL (74-106) Calcium Level 8.4 MG/DL (8.5-10.1) POC Whole Blood Glucose 179 MG/DL (74-106) 168 MG/DL (74-106) Test 09/04/19 00:21 09/04/19 04:01 09/04/19 05:15 White Blood Count 18.5 K/UL (4.8-10.8) Red Blood Count 3.22 M/UL (4.70-6.10) Hemoglobin 8.6 G/DL (14.2-18.0) Hematocrit 27.4 % (42.0-52.0) Mean Corpuscular Volume 85 FL (80-99) Mean Corpuscular Hemoglobin 26.7 PG (27.0-31.0) Mean Corpuscular Hemoglobin Concent 31.4 G/DL (32.0-36.0) Red Cell Distribution Width 16.9 % (11.6-14.8) Platelet Count 689 K/UL (150-450) Mean Platelet Volume 5.9 FL (6.5-10.1) Neutrophils (%) (Auto) % (45.0-75.0) Lymphocytes (%) (Auto) % (20.0-45.0) Monocytes (%) (Auto) % (1.0-10.0) Eosinophils (%) (Auto) % (0.0-3.0) Basophils (%) (Auto) % (0.0-2.0) Differential Total Cells Counted 100 Neutrophils % (Manual) 70 % (45-75) Lymphocytes % (Manual) 10 % (20-45) Monocytes % (Manual) 15 % (1-10) Eosinophils % (Manual) 5 % (0-3) Basophils % (Manual) 0 % (0-2) Band Neutrophils 0 % (0-8) Platelet Estimate Increased Platelet Morphology Normal Polychromasia 2+ Hypochromasia 1+ Anisocytosis 1+ Sodium Level 133 MMOL/L (136-145) Potassium Level 3.6 MMOL/L (3.5-5.1) Chloride Level 96 MMOL/L (98-107) Carbon Dioxide Level 34 MMOL/L (21-32) Anion Gap 3 mmol/L (5-15) Blood Urea Nitrogen 50 mg/dL (7-18) Creatinine 2.4 MG/DL (0.55-1.30) Estimat Glomerular Filtration Rate 26.3 mL/min (>60) Glucose Level 169 MG/DL (74-106) Calcium Level 8.7 MG/DL (8.5-10.1) POC Whole Blood Glucose 166 MG/DL (74-106) Height (Feet): 5 Height (Inches): 10.00 Weight (Pounds): 165 Objective Physical Exam General Appearance: nad, Chronically Ill Head: normocephalic Eyes: right eye PERRL - Will not open left eye ENT: moist mucus membranes Neck: other - submandibular mass R, fairly rigid with resistance to rotation to L, tracheotomy Respiratory: decreased breath sounds, crackles, other - pacemaker, vent+ Cardiovascular: regular rate, rhythm, edema - anasarca Gastrointestinal: non tender, distended, other - G tube Genitourinary: other Musculoskeletal: other - Contractures all extremities Neurologic: sensory intact, motor weakness, responsive Psychiatric: other Skin: Decubitus/Ulcer - Stage III right elbow, stage III left elbow, stage II sacrum, stage III scrotum, warm/dry Fitz Campos MD Sep 04, 2019 11:40
--- NOTE | 2019-09-04 11:43 | Surgery Progress Note ---
Surgery Progress Note Subjective Procedure Performed Right femoral temporary hemodialysis catheter removal Additional Comments worsening leukocytosis on zosyn cxr pending exam unchanged Objective Last 24 Hour Vital Signs Date Time Temp Pulse Resp B/P (MAP) Pulse Ox O2 Delivery O2 Flow Rate FiO2 09/04/19 11:05 69 15 24 09/04/19 09:21 84 127/48 09/04/19 09:21 127/48 09/04/19 08:00 24 09/04/19 08:00 Mechanical Ventilator 09/04/19 08:00 88 09/04/19 08:00 98.2 84 16 127/48 (74) 100 09/04/19 07:15 90 19 24 09/04/19 04:00 98.4 89 16 135/76 (95) 100 09/04/19 04:00 24 09/04/19 04:00 Mechanical Ventilator 09/04/19 03:28 86 09/04/19 03:05 90 18 24 09/04/19 00:00 Mechanical Ventilator 09/04/19 00:00 99.1 86 16 147/80 (102) 99 09/03/19 23:30 86 09/03/19 23:19 81 17 24 09/03/19 20:37 85 119/70 09/03/19 20:00 Mechanical Ventilator 09/03/19 20:00 97.9 83 16 119/70 (86) 100 09/03/19 20:00 24 09/03/19 19:32 82 09/03/19 18:57 82 21 24 09/03/19 16:00 Mechanical Ventilator 09/03/19 16:00 75 09/03/19 16:00 24 09/03/19 15:14 98.4 74 16 132/66 (88) 100 09/03/19 15:01 75 19 24 09/03/19 12:22 24 09/03/19 12:21 Mechanical Ventilator 09/03/19 12:00 99.5 71 17 132/65 (87) 100 09/03/19 12:00 71 I&O Intake and Output 09/03/19 09/04/19 19:00 07:00 Intake Total 125 ml 1241.666 ml Balance 125 ml 1241.666 ml Free Water 30 ml 60 ml IV Total 50 ml 641.666 ml Tube Feeding 45 ml 540 ml # Bowel Movements 6 Dressing: other Wound: other Cardiovascular: RSR Respiratory: decreased breath sounds Abdomen: soft, non-tender, present bowel sounds, other Extremities: no cyanosis Laboratory Tests Test 09/04/19 00:21 09/04/19 04:01 09/04/19 05:15 POC Whole Blood Glucose Pending 166 MG/DL (74-106) H White Blood Count 18.5 K/UL (4.8-10.8) H Red Blood Count 3.22 M/UL (4.70-6.10) L Hemoglobin 8.6 G/DL (14.2-18.0) L Hematocrit 27.4 % (42.0-52.0) L Mean Corpuscular Volume 85 FL (80-99) Mean Corpuscular Hemoglobin 26.7 PG (27.0-31.0) L Mean Corpuscular Hemoglobin Concent 31.4 G/DL (32.0-36.0) L Red Cell Distribution Width 16.9 % (11.6-14.8) H Platelet Count 689 K/UL (150-450) H Mean Platelet Volume 5.9 FL (6.5-10.1) L Neutrophils (%) (Auto) % (45.0-75.0) Lymphocytes (%) (Auto) % (20.0-45.0) Monocytes (%) (Auto) % (1.0-10.0) Eosinophils (%) (Auto) % (0.0-3.0) Basophils (%) (Auto) % (0.0-2.0) Differential Total Cells Counted 100 Neutrophils % (Manual) 70 % (45-75) Lymphocytes % (Manual) 10 % (20-45) L Monocytes % (Manual) 15 % (1-10) H Eosinophils % (Manual) 5 % (0-3) H Basophils % (Manual) 0 % (0-2) Band Neutrophils 0 % (0-8) Platelet Estimate Increased H Platelet Morphology Normal Polychromasia 2+ Hypochromasia 1+ Anisocytosis 1+ Sodium Level 133 MMOL/L (136-145) L Potassium Level 3.6 MMOL/L (3.5-5.1) Chloride Level 96 MMOL/L (98-107) L Carbon Dioxide Level 34 MMOL/L (21-32) H Anion Gap 3 mmol/L (5-15) L Blood Urea Nitrogen 50 mg/dL (7-18) H Creatinine 2.4 MG/DL (0.55-1.30) H Estimat Glomerular Filtration Rate 26.3 mL/min (>60) Glucose Level 169 MG/DL (74-106) H Calcium Level 8.7 MG/DL (8.5-10.1) Plan Problems: (1) Anemia (2) Hyponatremia (3) Leukocytosis Assessment & Plan: Tracheostomy, left chest pacemaker are again demonstrated. There is bilateral interstitial and airspace disease and bilateral pleural fluid again demonstrated. This appears more severe than on the prior study. Bilateral interstitial and airspace infiltrates versus edema. Bilateral pleural effusions Leukocytosis, anemia, tachycardia, abnormal labs. Wound evaluated and likely etiology of patient's sepsis. Leukocytosis etiology work-up antibiotics per infectious disease Appreciate nephrology input transfuse with dialysis We will follow with recommendations thank you allowing participation's care plan HD access temp HD discussed with medical teams line okay HD as per renal persistent leukocytosis flow cyto noted improving trending down right fem line removed (4) Ventilator dependent (5) Right lower lobe pneumonia (6) Hypokalemia (7) Hyperkalemia (8) Anasarca (9) Decubitus skin ulcer Assessment & Plan: pt presented on admission with generalized edemae.Skin assessed under tracheostomy and no areas of concerns noted. GT Insertion is marginally erythematous with small amt slough at stoma. Unstageable Pressure Injury R elbow. Base of wound is 100% yellow slough, Borders are erythematous. Wound oozing small amt haemopurulent exudate.Darker skin tone without elevation in skin temp or erythema periwound. Pt's penis and scrotum are grossly edematous and enlarged and weeping serous exudate from numerous sites both from penis and scrotum. Two small open wounds noted at base of at base of shaft of penis ,and contreras aspect of scrotum. Both wounds oozing large amt sanguineous and serosanguineous exudate. Multiple open wounds with Biofilm at base of each wounds noted to contreras/lateral,inferior and posterior aspects of scrotum. These wounds noted to be oozing moderate amts of serosanguineous exudate. Hypertrophic scar with scattered areas of hyperpigmentation noted to Sacrum. DTPI noted to L Buttocks (L)7cm x (W)9cm. Base of wound is purple and indurated.Darker skin tone without erythema, induration or fluctuance R and L ischial tuberosities. Both heels are boggy with non-blanchable erythema. Tx.Plan: Cleanse wound R elbow with Saline. Apply TheraHoney, Apply Moisture Barrier Paste periwound. Cover with Optifoam drsg.Change Daily and prn. Wash GT site with soap and water.Pat dry. Apply Zinc Oxide Paste to GT site Daily. Leave Open to Air. Apply Zinc Oxide Paste to entire Scrotum, Place ABD pads to R and L lateral, and posterior aspects of scrotum TWICE daily. Apply Cavilon Skin Barrier to malleoli and both Heels. Cover each site with Optifoam drsgs. Change every 7 days and prn. Reposition at least every 2hours or as tolerated. Off-load heels with Pillows. APM/BECCA Mattress overlay. (10) Malnutrition Assessment & Plan: DAILY ESTIMATED NEEDS: Needs based on Renal, critical care, wound/ 61kg 22-30 kcals/kg 9141-9414 total kcals 1.25-2 g protein/kg 76-122 g total protein Fluid per MD, now on HD NUTRITION DIAGNOSIS: * Swallowing difficulty R/T respiratory failure, dysphagia as evidenced by trach/vent dep, PEG dep * Increased kcal/prot needs R/T wound healing as evidenced by admitted w/ multiple pressure injuries including full thickness wounds at junction of Shaft of penis, dorsal scrotum, R elbow, and DTPI @ L buttocks. CURRENT TF:Nepro @ 45ml/hr x 24 hrs ENTERAL NUTRITION RECOMMENDATIONS: NEPRO @ 40ml/hr x 24 hrs to provide 960ml, 1728kcal , 78g prot, 697ml free water * Decrease goal rate to 40ml/hr x 24hrs -> meets 100% est kcal/prot needs * HOB over 30 degrees/ water flush per MD WITH CONTINUED DIARRHEA AND CONSISTENTLY LOW LYTES, consider TF change to carb controlled, elemental TF Vital AF 1.2-> rec goal rate of 55ml/hr x 24 hrs to provide 1320ml, 1584kcal, 99g prot, 1070ml free water, 2228mg K and 1114mg phos ADDITIONAL RECOMMENDATIONS: * Per SNF: HT=63" VA=233 lbs (Vs EMR wt of 166lbs) -> obtain re-calibrated bedscale wt, rec daily wt monitoring * Wound healing: continue Nephrovite x 1 and Garo BID Vit C dosing per Nephro * Monitor renal fxn and lytes-> pt now on HD rec checking f/up phos (0.9* on 08/21) * Add probiotics to help alleviate diarrhea (11) Uremia (12) CKD (chronic kidney disease) stage 5, GFR less than 15 ml/min (13) Colon distention Assessment & Plan: discussed with GI likely functional as having lots of loose bm rectal tube kub f/u s/p colonoscopy - findings reviewed with GI Marked distention of the sigmoid colon. 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 No evidence of bowel wall thickening or pneumatosis 12 mm focus of contrast enhancement in the right pectineus muscle. While nonspecific in appearance, appearance raises concern for a possible pseudoaneurysm. Ill- defined thickening of the pectus medius muscle could indicate some intramuscular hemorrhage. The above findings were phoned to Dr. Urias at the time of interpretation Large bilateral pleural effusions Hazy pulmonary parenchymal opacities as well as dense consolidative opacities most likely represent pulmonary edema, but could represent pneumonia Evidence of anasarca elsewhere, with generalized edema of the subcutaneous fat Bladder wall thickening, raises concern for cystitis. Avalos catheter in place Colonic diverticulosis. No evidence of diverticulitis. Tracheostomy Pacemaker Gastrostomy Jonathan Urias Sep 04, 2019 11:43
--- NOTE | 2019-09-04 13:21 | Nephrology Progress Note ---
Assessment/Plan Plan Sepsis - IV Abx Established ESRD - HD now TTS. Patient will remain on HD. ROHIT Gregory CM re DC planning. Subjective Subjective Obtunded. Objective Objective Last 24 Hour Vital Signs Date Time Temp Pulse Resp B/P (MAP) Pulse Ox O2 Delivery O2 Flow Rate FiO2 09/04/19 13:04 98.4 72 16 149/72 (97) 100 09/04/19 12:00 24 09/04/19 12:00 98.4 76 16 139/71 (93) 100 09/04/19 11:05 69 15 24 09/04/19 09:21 84 127/48 09/04/19 09:21 127/48 09/04/19 08:00 24 09/04/19 08:00 Mechanical Ventilator 09/04/19 08:00 88 09/04/19 08:00 98.2 84 16 127/48 (74) 100 09/04/19 07:15 90 19 24 09/04/19 04:00 98.4 89 16 135/76 (95) 100 09/04/19 04:00 24 09/04/19 04:00 Mechanical Ventilator 09/04/19 03:28 86 09/04/19 03:05 90 18 24 09/04/19 00:00 Mechanical Ventilator 09/04/19 00:00 99.1 86 16 147/80 (102) 99 09/03/19 23:30 86 09/03/19 23:19 81 17 24 09/03/19 20:37 85 119/70 09/03/19 20:00 Mechanical Ventilator 09/03/19 20:00 97.9 83 16 119/70 (86) 100 09/03/19 20:00 24 09/03/19 19:32 82 09/03/19 18:57 82 21 24 09/03/19 16:00 Mechanical Ventilator 09/03/19 16:00 75 09/03/19 16:00 24 09/03/19 15:14 98.4 74 16 132/66 (88) 100 09/03/19 15:01 75 19 24 Intake and Output 09/03/19 09/04/19 19:00 07:00 Intake Total 125 ml 1241.666 ml Balance 125 ml 1241.666 ml Free Water 30 ml 60 ml IV Total 50 ml 641.666 ml Tube Feeding 45 ml 540 ml # Bowel Movements 6 Laboratory Tests 09/04/19 00:21: POC Whole Blood Glucose [Pending] 09/04/19 04:01: White Blood Count 18.5H, Red Blood Count 3.22L, Hemoglobin 8.6L, Hematocrit 27.4L, Mean Corpuscular Volume 85, Mean Corpuscular Hemoglobin 26.7L, Mean Corpuscular Hemoglobin Concent 31.4L, Red Cell Distribution Width 16.9H, Platelet Count 689H, Mean Platelet Volume 5.9L, Neutrophils (%) (Auto) , Lymphocytes (%) (Auto) , Monocytes (%) (Auto) , Eosinophils (%) (Auto) , Basophils (%) (Auto) , Differential Total Cells Counted 100, Neutrophils % ( Manual) 70, Lymphocytes % (Manual) 10L, Monocytes % (Manual) 15H, Eosinophils % (Manual) 5H, Basophils % (Manual) 0, Band Neutrophils 0, Platelet Estimate IncreasedH, Platelet Morphology Normal, Polychromasia 2+, Hypochromasia 1+, Anisocytosis 1+, Sodium Level 133L, Potassium Level 3.6, Chloride Level 96L, Carbon Dioxide Level 34H, Anion Gap 3L, Blood Urea Nitrogen 50H, Creatinine 2.4H , Estimat Glomerular Filtration Rate 26.3, Glucose Level 169H, Calcium Level 8.7 09/04/19 05:15: POC Whole Blood Glucose 166H 09/04/19 12:58: POC Whole Blood Glucose 191H Height (Feet): 5 Height (Inches): 10.00 Weight (Pounds): 165 Objective CV RR Trach clean Lungs CTA New Perma Cath RIJ. Old Femoral Rancho still in Rt. Groin! Abd SNT. BS + E No CCE Erica Pichardo MD Sep 04, 2019 13:21
[2019-09-04] MEDS ORDERED: Piperacillin/Tazobactam 3.375 GM in D5W 110 ML IVPB SCH (14:00)
--- NOTE | 2019-09-04 14:01 | NUR ---
CASE MANAGEMENT: REVIEW SI: KLEBSIELLA, PSEUDOMONAS, PROVIDENCIA PNA . ESRD on HD T 99.1 HR 86 RR 16 BP 147/80 SAT 99% MECH VENT FIO2 FIO2 24 WBC 18.5 H/H 8.6/27.4 NA 133 BUN 50 CR 2.4 GLUCOSE 191 CULTURE CATH TIP IS: CEFEPIME IV Q24HR COLISTIN INH Q12HR EPOETIN SUBQ QMWF HEPARIN IV PRN HD HD NEEDED PATIENT ADMITTED TO STEP DOWN UNIT DCP: PATIENT IS FROM [facility]
--- NOTE | 2019-09-04 14:14 | NUR ---
CASE MANAGEMENT: DCP [facility] [phone] PER KELSEA NO BEDS AVAILABLE FOR HD PATIENTS. [facility] [phone] PENDING REVIEW -- PER JAMILA NO BEDS AVAILABLE AT THIS TIME RENAL FOR OP HD [phone] LEFT MESSAGE. PENDING CALL BACK. PER JOSE F COORDINATOR AT [employer] [phone] RENAL IS PENDING SUBACUTE PLACEMENT PRIOR TO PROVIDING A CHAIR TIME PER DORIS SALEEM [phone] PATIENT'S STAY CONTINUES TO BE AUTHORIZED
--- NOTE | 2019-09-04 14:22 | NUR ---
*-* INSURANCE *-* UPDATED CLINICALS AND REVIEWS HAVE BEEN FAXED TO: ELIN ([employer]) REF# [id number] RIC:HARPER P:[phone] F:[phone]
[2019-09-04] MEDS: Zosyn 2.25 gm in D5W 55ml IV SCH ×2 (15:40→23:36)
--- NOTE | 2019-09-04 19:38 | NUR ---
HAND-OFF: Report given to TAMICA Worley. Pt remains stable.
--- NOTE | 2019-09-04 19:40 | NUR ---
NURSE NOTES: Received pt's report from TAMICA Madsen. Pt is on bed, obtunded. No S/S of respiratory distress noted. pt is on vent, SpO2 100% and RR 18 noted. Pt is on G-tube, running noted. IV site is intact and patent noted. Pt is on semi-rivera position. Call-light within reach, bed is low and locked. Will continue to monitor with plan of care.
[2019-09-04] MEDS: Dyna-Hex 2% Top Sol 2oz TOPIC SCH (21:11)
[2019-09-04] MEDS: Epoetin Alfa-EPBX(ESRD on dialysis)10,000 unit/ml vial SUBQ SCH (21:12)
[2019-09-04] MEDS: Atorvastatin 20mg tab GT SCH (21:12)
--- NOTE | 2019-09-04 21:21 | NUR ---
RESPIRATORY NOTE: Pt received on AC 15/450/+5/ 24% FiO2. Pt is trached w/ a cuffed, Portex 8 trach. Pt obtunded/disoriented. B/S ovi. rhonchi/diminished, sxn small amounts of thick/thin, pale-yellow secretions. Vent plugged into red outlet, ambu bag at bedside. No s/s of distress at this time. Will continue plan of care and to monitor.
--- NOTE | 2019-09-04 23:16 | General Progress Note ---
Assessment/Plan Assessment/Plan: Assessment - colonoscopy negative to hepatic flexure - diarrhea - ? TF related - abnormal LFT - Anemia - leukocytosis - stool OB (+) - EGD --> gastritis - Renal failure - Sepsis / leukocytosis - Anasarca - resp failure, trach - dysphagia, GT - encephalopathy, contracted - poor px Recommendations - Continue TF - change formula - Elevate HOB - f/u Biopsies of colon --> negative - PPI - abx - supportive care Subjective Allergies: Coded Allergies: No Known Allergies (Unverified , 06/10/19) Subjective Above noted d/w RN diarrhea noted advised to change to Non renal formula Objective Last 24 Hour Vital Signs Date Time Temp Pulse Resp B/P (MAP) Pulse Ox O2 Delivery O2 Flow Rate FiO2 09/04/19 21:11 76 147/67 09/04/19 20:00 98.2 75 16 147/67 (93) 100 09/04/19 19:44 76 17 24 09/04/19 19:03 76 09/04/19 16:00 24 09/04/19 16:00 Mechanical Ventilator 09/04/19 16:00 74 09/04/19 16:00 98.1 76 16 143/77 (99) 100 09/04/19 15:05 79 16 24 09/04/19 13:04 98.4 72 16 149/72 (97) 100 09/04/19 12:00 Mechanical Ventilator 09/04/19 12:00 73 09/04/19 12:00 24 09/04/19 12:00 98.4 76 16 139/71 (93) 100 09/04/19 11:05 69 15 24 09/04/19 09:21 84 127/48 09/04/19 09:21 127/48 09/04/19 08:00 24 09/04/19 08:00 Mechanical Ventilator 09/04/19 08:00 88 09/04/19 08:00 98.2 84 16 127/48 (74) 100 09/04/19 07:15 90 19 24 09/04/19 04:00 98.4 89 16 135/76 (95) 100 09/04/19 04:00 24 09/04/19 04:00 Mechanical Ventilator 09/04/19 03:28 86 09/04/19 03:05 90 18 24 09/04/19 00:00 Mechanical Ventilator 09/04/19 00:00 99.1 86 16 147/80 (102) 99 09/03/19 23:30 86 09/03/19 23:19 81 17 24 Intake and Output 09/03/19 09/04/19 19:00 07:00 Intake Total 125 ml 1241.666 ml Balance 125 ml 1241.666 ml Free Water 30 ml 60 ml IV Total 50 ml 641.666 ml Tube Feeding 45 ml 540 ml # Bowel Movements 6 Laboratory Tests 09/04/19 00:21: POC Whole Blood Glucose [Pending] 09/04/19 04:01: White Blood Count 18.5H, Red Blood Count 3.22L, Hemoglobin 8.6L, Hematocrit 27.4L, Mean Corpuscular Volume 85, Mean Corpuscular Hemoglobin 26.7L, Mean Corpuscular Hemoglobin Concent 31.4L, Red Cell Distribution Width 16.9H, Platelet Count 689H, Mean Platelet Volume 5.9L, Neutrophils (%) (Auto) , Lymphocytes (%) (Auto) , Monocytes (%) (Auto) , Eosinophils (%) (Auto) , Basophils (%) (Auto) , Differential Total Cells Counted 100, Neutrophils % ( Manual) 70, Lymphocytes % (Manual) 10L, Monocytes % (Manual) 15H, Eosinophils % (Manual) 5H, Basophils % (Manual) 0, Band Neutrophils 0, Platelet Estimate IncreasedH, Platelet Morphology Normal, Polychromasia 2+, Hypochromasia 1+, Anisocytosis 1+, Sodium Level 133L, Potassium Level 3.6, Chloride Level 96L, Carbon Dioxide Level 34H, Anion Gap 3L, Blood Urea Nitrogen 50H, Creatinine 2.4H , Estimat Glomerular Filtration Rate 26.3, Glucose Level 169H, Calcium Level 8.7 09/04/19 05:15: POC Whole Blood Glucose 166H 09/04/19 12:58: POC Whole Blood Glucose 191H 09/04/19 17:30: POC Whole Blood Glucose 186H Height (Feet): 5 Height (Inches): 10.00 Weight (Pounds): 165 Objective Debilitated AA man NCAT (+) trach coarse BS RR abd distended, anasarca, (+) GT ext (+) edema contracted Ronny Mustafa MD Sep 04, 2019 23:16
[2019-09-05] VITALS: BP 139/66
[2019-09-05 03:55] VITALS: BP 146/61
[2019-09-05 04:41] LABS: HEMATOCRIT 26.9 % (42.0-52.0); HEMOGLOBIN 8.3 G/DL (14.2-18.0); MEAN CORPUSCULAR VOLUME 85 FL (80-99); PLATELET COUNT 621 K/UL (150-450); RED BLOOD COUNT 3.18 M/UL (4.70-6.10); RED CELL DISTRIBUTION WIDTH 16.9 % (11.6-14.8)
[2019-09-05 04:52] LABS: ANION GAP 2 mmol/L (5-15); BLOOD UREA NITROGEN 65 mg/dL (7-18); CALCIUM 8.8 MG/DL (8.5-10.1); CARBON DIOXIDE 34 MMOL/L (21-32); CHLORIDE 96 MMOL/L (98-107); CREATININE 2.9 MG/DL (0.55-1.30); POTASSIUM 3.8 MMOL/L (3.5-5.1); SODIUM 132 MMOL/L (136-145)
[2019-09-05] MEDS: NovoLOG Insulin Flexpen SUBQ SCH ×4 (05:44→23:55)
[2019-09-05] MEDS ORDERED: Heparin Sod 1000 units/ml 10ml IV PRN (06:00)
[2019-09-05] MEDS ORDERED: Heparin 1000 units/ml 1ml Vial INJ PRN (06:00)
[2019-09-05] MEDS: Zosyn 2.25 gm in D5W 55ml IV SCH ×3 (06:05→23:17)
--- NOTE | 2019-09-05 07:07 | NUR ---
RESPIRATORY NOTE: Received pt on AC 15 VT 450, Fio2 24%, PEEP of 5, iTime 0.90. Pt is trach dependent with portex 8 cuffed. Breath sounds bilateral rhonchi with small to moderate amount of thin/thick pale yellow secretions. Back up trach and ambu bag at bedside. Vent plugged to red outlet. Will continue to monitor.
--- NOTE | 2019-09-05 07:36 | NUR ---
HAND-OFF: Report given to TAMICA Combs.
--- NOTE | 2019-09-05 07:37 | NUR ---
NURSE NOTES: Received patient from TAMICA Worley. Pt obtunded. Open eyes but does not track. Does not follow command. Eyes size 4 and PERRLA but sluggish. Withdraws all extremities. Upper extremities contracted. Lower extremities weak. Resists oral cleaning. Trach to ventilator with setting AC 15, TV 450, FiO2 24%, and PEEP 5. No sign of distress. Trach secretion white/perez/thick. Gastrostomy tube noted. Dressing dry and intact. Tube feeding vital AF running at 50mL/hr. Rectal tube noted. Thin brown stool noted in tubing. 100mL total in bag at this time. MD aware. R subclavian Permacath noted. Dressing dry and intact. +3 pitting scrotal/penile edema noted. Generalized +2 pitting edema noted. left hand 22 gauge peripheral IV asymptomatic with dressing dry and intact. Hemodialysis scheduled for today. Will follow up with magazine journalist.
[2019-09-05 08:00] VITALS: BP 134/59
--- NOTE | 2019-09-05 08:00 | NUR ---
NURSE NOTES: Dr Mustafa rounded on pt. Update given. No verbal orders received.
--- NOTE | 2019-09-05 08:34 | NUR ---
RADIOLOGY DEPT, CHEST X-RAY DONE.-P.DYE
[2019-09-05] MEDS: Minoxidil 2.5mg tab GT SCH (09:00)
[2019-09-05] MEDS: Metoprolol Tartrate 100mg tab GT SCH ×2 (09:00→20:17)
[2019-09-05 09:07] LABS: ALANINE AMINOTRANSFERASE 53 U/L (12-78); ALBUMIN 1.4 G/DL (3.4-5.0); ALKALINE PHOSPHATASE 276 U/L (46-116); ASPARTATE AMINO TRANSFERASE 73 U/L (15-37); BILIRUBIN,DIRECT 0.2 MG/DL (0.0-0.3); BILIRUBIN,TOTAL 0.4 MG/DL (0.2-1.0)
[2019-09-05] MEDS: Ascorbic Acid 500mg tab GT SCH (09:10)
[2019-09-05] MEDS: Zinc Oxide Oint 2oz TOPIC SCH ×2 (09:11→18:03)
[2019-09-05] MEDS: Nephrovite tab (Rena-Vite) GT SCH (09:11)
[2019-09-05] MEDS: Multivitamins W/Minerals 15 ML UDC GT SCH (09:11)
[2019-09-05] MEDS: Vitamin D 1000 IU Tab GT SCH (09:11)
--- NOTE | 2019-09-05 10:14 | NUR ---
NURSE NOTES: Spoke with Pt daughter over the phone. Update given.
--- NOTE | 2019-09-05 10:51 | Surgery Progress Note ---
Surgery Progress Note Subjective Procedure Performed Right femoral temporary hemodialysis catheter removal Additional Comments persistent leukocytosis anemia exam stable on support no n/v line Objective Last 24 Hour Vital Signs Date Time Temp Pulse Resp B/P (MAP) Pulse Ox O2 Delivery O2 Flow Rate FiO2 09/05/19 09:33 74 09/05/19 09:24 70 15 24 09/05/19 09:00 73 134/59 09/05/19 09:00 134/59 09/05/19 08:00 24 09/05/19 08:00 98.2 73 15 134/59 (84) 100 09/05/19 07:07 68 15 24 09/05/19 04:00 Mechanical Ventilator 09/05/19 04:00 24 09/05/19 03:55 97.5 74 20 146/61 (89) 100 09/05/19 03:41 74 09/05/19 03:19 72 16 24 09/05/19 00:00 69 09/05/19 00:00 Mechanical Ventilator 09/05/19 00:00 24 09/05/19 00:00 97.7 70 16 139/66 (90) 100 09/04/19 23:16 70 16 24 09/04/19 21:11 76 147/67 09/04/19 20:00 24 09/04/19 20:00 Mechanical Ventilator 09/04/19 20:00 98.2 75 16 147/67 (93) 100 09/04/19 19:44 76 17 24 09/04/19 19:03 76 09/04/19 16:00 24 09/04/19 16:00 Mechanical Ventilator 09/04/19 16:00 74 09/04/19 16:00 98.1 76 16 143/77 (99) 100 09/04/19 15:05 79 16 24 09/04/19 13:04 98.4 72 16 149/72 (97) 100 09/04/19 12:00 Mechanical Ventilator 09/04/19 12:00 73 09/04/19 12:00 24 09/04/19 12:00 98.4 76 16 139/71 (93) 100 09/04/19 11:05 69 15 24 I&O Intake and Output 09/04/19 09/05/19 19:00 07:00 Intake Total 855 ml 635 ml Balance 855 ml 635 ml Free Water 50 ml IV Total 355 ml 55 ml Tube Feeding 400 ml 530 ml Other 50 ml 50 ml # Bowel Movements 20 90 Cardiovascular: other Respiratory: decreased breath sounds Abdomen: soft, present bowel sounds, non-distended Extremities: no tenderness, no cyanosis, other Laboratory Tests Test 09/04/19 12:58 09/04/19 17:30 09/05/19 04:00 POC Whole Blood Glucose 191 MG/DL (74-106) H 186 MG/DL (74-106) H White Blood Count 18.0 K/UL (4.8-10.8) H Red Blood Count 3.18 M/UL (4.70-6.10) L Hemoglobin 8.3 G/DL (14.2-18.0) L Hematocrit 26.9 % (42.0-52.0) L Mean Corpuscular Volume 85 FL (80-99) Mean Corpuscular Hemoglobin 26.1 PG (27.0-31.0) L Mean Corpuscular Hemoglobin Concent 30.8 G/DL (32.0-36.0) L Red Cell Distribution Width 16.9 % (11.6-14.8) H Platelet Count 621 K/UL (150-450) H Mean Platelet Volume 6.0 FL (6.5-10.1) L Neutrophils (%) (Auto) % (45.0-75.0) Lymphocytes (%) (Auto) % (20.0-45.0) Monocytes (%) (Auto) % (1.0-10.0) Eosinophils (%) (Auto) % (0.0-3.0) Basophils (%) (Auto) % (0.0-2.0) Differential Total Cells Counted 100 Neutrophils % (Manual) 80 % (45-75) H Lymphocytes % (Manual) 12 % (20-45) L Monocytes % (Manual) 6 % (1-10) Eosinophils % (Manual) 2 % (0-3) Basophils % (Manual) 0 % (0-2) Band Neutrophils 0 % (0-8) Platelet Estimate Increased H Platelet Morphology Normal Anisocytosis 1+ Sodium Level 132 MMOL/L (136-145) L Potassium Level 3.8 MMOL/L (3.5-5.1) Chloride Level 96 MMOL/L (98-107) L Carbon Dioxide Level 34 MMOL/L (21-32) H Anion Gap 2 mmol/L (5-15) L Blood Urea Nitrogen 65 mg/dL (7-18) H Creatinine 2.9 MG/DL (0.55-1.30) H Estimat Glomerular Filtration Rate 21.2 mL/min (>60) Glucose Level 161 MG/DL (74-106) H Calcium Level 8.8 MG/DL (8.5-10.1) Phosphorus Level 1.0 MG/DL (2.5-4.9) L Total Bilirubin 0.4 MG/DL (0.2-1.0) Direct Bilirubin 0.2 MG/DL (0.0-0.3) Aspartate Amino Transf (AST/SGOT) 73 U/L (15-37) H Alanine Aminotransferase (ALT/SGPT) 53 U/L (12-78) Alkaline Phosphatase 276 U/L (46-116) H Total Protein 7.5 G/DL (6.4-8.2) Albumin 1.4 G/DL (3.4-5.0) L Plan Problems: (1) Anemia (2) Hyponatremia (3) Leukocytosis Assessment & Plan: Tracheostomy, left chest pacemaker are again demonstrated. There is bilateral interstitial and airspace disease and bilateral pleural fluid again demonstrated. This appears more severe than on the prior study. Bilateral interstitial and airspace infiltrates versus edema. Bilateral pleural effusions Leukocytosis, anemia, tachycardia, abnormal labs. Wound evaluated and likely etiology of patient's sepsis. Leukocytosis etiology work-up antibiotics per infectious disease Appreciate nephrology input transfuse with dialysis We will follow with recommendations thank you allowing participation's care plan HD access temp HD discussed with medical teams line okay HD as per renal persistent leukocytosis flow cyto noted improving trending down right fem line removed (4) Ventilator dependent (5) Right lower lobe pneumonia (6) Hypokalemia (7) Hyperkalemia (8) Anasarca (9) Decubitus skin ulcer Assessment & Plan: pt presented on admission with generalized edemae.Skin assessed under tracheostomy and no areas of concerns noted. GT Insertion is marginally erythematous with small amt slough at stoma. Unstageable Pressure Injury R elbow. Base of wound is 100% yellow slough, Borders are erythematous. Wound oozing small amt haemopurulent exudate.Darker skin tone without elevation in skin temp or erythema periwound. Pt's penis and scrotum are grossly edematous and enlarged and weeping serous exudate from numerous sites both from penis and scrotum. Two small open wounds noted at base of at base of shaft of penis ,and contreras aspect of scrotum. Both wounds oozing large amt sanguineous and serosanguineous exudate. Multiple open wounds with Biofilm at base of each wounds noted to contreras/lateral,inferior and posterior aspects of scrotum. These wounds noted to be oozing moderate amts of serosanguineous exudate. Hypertrophic scar with scattered areas of hyperpigmentation noted to Sacrum. DTPI noted to L Buttocks (L)7cm x (W)9cm. Base of wound is purple and indurated.Darker skin tone without erythema, induration or fluctuance R and L ischial tuberosities. Both heels are boggy with non-blanchable erythema. Tx.Plan: Cleanse wound R elbow with Saline. Apply TheraHoney, Apply Moisture Barrier Paste periwound. Cover with Optifoam drsg.Change Daily and prn. Wash GT site with soap and water.Pat dry. Apply Zinc Oxide Paste to GT site Daily. Leave Open to Air. Apply Zinc Oxide Paste to entire Scrotum, Place ABD pads to R and L lateral, and posterior aspects of scrotum TWICE daily. Apply Cavilon Skin Barrier to malleoli and both Heels. Cover each site with Optifoam drsgs. Change every 7 days and prn. Reposition at least every 2hours or as tolerated. Off-load heels with Pillows. APM/BECCA Mattress overlay. (10) Malnutrition Assessment & Plan: DAILY ESTIMATED NEEDS: Needs based on Renal, critical care, wound/ 61kg 22-30 kcals/kg 3224-4556 total kcals 1.25-2 g protein/kg 76-122 g total protein Fluid per MD, now on HD NUTRITION DIAGNOSIS: * Swallowing difficulty R/T respiratory failure, dysphagia as evidenced by trach/vent dep, PEG dep * Increased kcal/prot needs R/T wound healing as evidenced by admitted w/ multiple pressure injuries including full thickness wounds at junction of Shaft of penis, dorsal scrotum, R elbow, and DTPI @ L buttocks. CURRENT TF:Nepro @ 45ml/hr x 24 hrs ENTERAL NUTRITION RECOMMENDATIONS: NEPRO @ 40ml/hr x 24 hrs to provide 960ml, 1728kcal , 78g prot, 697ml free water * Decrease goal rate to 40ml/hr x 24hrs -> meets 100% est kcal/prot needs * HOB over 30 degrees/ water flush per MD WITH CONTINUED DIARRHEA AND CONSISTENTLY LOW LYTES, consider TF change to carb controlled, elemental TF Vital AF 1.2-> rec goal rate of 55ml/hr x 24 hrs to provide 1320ml, 1584kcal, 99g prot, 1070ml free water, 2228mg K and 1114mg phos ADDITIONAL RECOMMENDATIONS: * Per SNF: HT=63" XG=688 lbs (Vs EMR wt of 166lbs) -> obtain re-calibrated bedscale wt, rec daily wt monitoring * Wound healing: continue Nephrovite x 1 and Garo BID Vit C dosing per Nephro * Monitor renal fxn and lytes-> pt now on HD rec checking f/up phos (0.9* on 08/21) * Add probiotics to help alleviate diarrhea (11) Uremia (12) CKD (chronic kidney disease) stage 5, GFR less than 15 ml/min (13) Colon distention Assessment & Plan: discussed with GI likely functional as having lots of loose bm rectal tube kub f/u s/p colonoscopy - findings reviewed with GI Marked distention of the sigmoid colon. 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 No evidence of bowel wall thickening or pneumatosis 12 mm focus of contrast enhancement in the right pectineus muscle. While nonspecific in appearance, appearance raises concern for a possible pseudoaneurysm. Ill- defined thickening of the pectus medius muscle could indicate some intramuscular hemorrhage. The above findings were phoned to Dr. Urias at the time of interpretation Large bilateral pleural effusions Hazy pulmonary parenchymal opacities as well as dense consolidative opacities most likely represent pulmonary edema, but could represent pneumonia Evidence of anasarca elsewhere, with generalized edema of the subcutaneous fat Bladder wall thickening, raises concern for cystitis. Avalos catheter in place Colonic diverticulosis. No evidence of diverticulitis. Tracheostomy Pacemaker Gastrostomy Jonathan Urias Sep 05, 2019 10:51
--- NOTE | 2019-09-05 11:30 | NUR ---
NURSE NOTES: Dr Pichardo rounded on pt. Update given. NO new orders received.
[2019-09-05 12:00] VITALS: BP 143/82
--- NOTE | 2019-09-05 12:00 | NUR ---
NURSE NOTES: Mentation remains unchanged. Eyes size 4 and PERRLA but sluggish. Withdraws all extremities. Upper extremities contracted. Lower extremities weak. Ventilator setting AC 15, TV 450, FiO2 24%, and PEEP 5. No sign of distress. R subclavian Permacath dressing dry and intact. Left hand 22 gauge peripheral IV asymptomatic with dressing dry and intact. 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
--- NOTE | 2019-09-05 12:07 | Nephrology Progress Note ---
Assessment/Plan Plan Sepsis - IV Abx Established ESRD - HD now TTS. Patient will remain on HD. Subjective Subjective Obtunded. Objective Objective Last 24 Hour Vital Signs Date Time Temp Pulse Resp B/P (MAP) Pulse Ox O2 Delivery O2 Flow Rate FiO2 09/05/19 09:33 74 09/05/19 09:24 70 15 24 09/05/19 09:00 73 134/59 09/05/19 09:00 134/59 09/05/19 08:00 Mechanical Ventilator 09/05/19 08:00 24 09/05/19 08:00 98.2 73 15 134/59 (84) 100 09/05/19 07:07 68 15 24 09/05/19 04:00 Mechanical Ventilator 09/05/19 04:00 24 09/05/19 03:55 97.5 74 20 146/61 (89) 100 09/05/19 03:41 74 09/05/19 03:19 72 16 24 09/05/19 00:00 69 09/05/19 00:00 Mechanical Ventilator 09/05/19 00:00 24 09/05/19 00:00 97.7 70 16 139/66 (90) 100 09/04/19 23:16 70 16 24 09/04/19 21:11 76 147/67 09/04/19 20:00 24 09/04/19 20:00 Mechanical Ventilator 09/04/19 20:00 98.2 75 16 147/67 (93) 100 09/04/19 19:44 76 17 24 09/04/19 19:03 76 09/04/19 16:00 24 09/04/19 16:00 Mechanical Ventilator 09/04/19 16:00 74 09/04/19 16:00 98.1 76 16 143/77 (99) 100 09/04/19 15:05 79 16 24 09/04/19 13:04 98.4 72 16 149/72 (97) 100 Intake and Output 09/04/19 09/05/19 19:00 07:00 Intake Total 855 ml 635 ml Balance 855 ml 635 ml Free Water 50 ml IV Total 355 ml 55 ml Tube Feeding 400 ml 530 ml Other 50 ml 50 ml # Bowel Movements 20 90 Laboratory Tests 09/04/19 12:58: POC Whole Blood Glucose 191H 09/04/19 17:30: POC Whole Blood Glucose 186H 09/05/19 04:00: White Blood Count 18.0H, Red Blood Count 3.18L, Hemoglobin 8.3L, Hematocrit 26.9L, Mean Corpuscular Volume 85, Mean Corpuscular Hemoglobin 26.1L, Mean Corpuscular Hemoglobin Concent 30.8L, Red Cell Distribution Width 16.9H, Platelet Count 621H, Mean Platelet Volume 6.0L, Neutrophils (%) (Auto) , Lymphocytes (%) (Auto) , Monocytes (%) (Auto) , Eosinophils (%) (Auto) , Basophils (%) (Auto) , Differential Total Cells Counted 100, Neutrophils % ( Manual) 80H, Lymphocytes % (Manual) 12L, Monocytes % (Manual) 6, Eosinophils % ( Manual) 2, Basophils % (Manual) 0, Band Neutrophils 0, Platelet Estimate IncreasedH, Platelet Morphology Normal, Anisocytosis 1+, Sodium Level 132L, Potassium Level 3.8, Chloride Level 96L, Carbon Dioxide Level 34H, Anion Gap 2L , Blood Urea Nitrogen 65H, Creatinine 2.9H, Estimat Glomerular Filtration Rate 21.2, Glucose Level 161H, Calcium Level 8.8, Phosphorus Level 1.0L, Total Bilirubin 0.4, Direct Bilirubin 0.2, Aspartate Amino Transf (AST/SGOT) 73H, Alanine Aminotransferase (ALT/SGPT) 53, Alkaline Phosphatase 276H, Total Protein 7.5, Albumin 1.4L 09/05/19 11:29: POC Whole Blood Glucose [Pending] Height (Feet): 5 Height (Inches): 10.00 Weight (Pounds): 168 Objective CV RR Trach clean Lungs CTA New Perma Cath RIJ. Old Femoral [place] still in Rt. Groin! Abd SNT. BS + E No CCE Erica Pichardo MD Sep 05, 2019 12:07
--- NOTE | 2019-09-05 12:41 | Hematology/Onc Progress Note ---
Assessment/Plan Assessment/Plan Assessment/recs # Leukocytosis - with multiple infections, VRE UTI, flow is negative --> wbc trend 33-->28-->25->23->22->23->24->17.3-->17-->14->16-->15.6-->14-->14- >13->19 --> on abx, linezolid and zosyn--> zosyn-->off --> + blood cultures with coag neg staph likely contaminated --> as per id recs --> has ordered a flow cytometry (with pathology) --> does show increased nK cell activity --> JOURDAN 2 and bcr-abl labs ordered (these are send outs) --> plt 585-->613-->649-->669->663 # Anemia due to chronic disease/kidney disease as well, gi bleed + occult + noted --> was on iron in the past, now on hold --> has been started on Epogen sq --> as per renal care --> egd done and shows gastritis --> on ppi --> egd showed gastritis, colo recently done --> hgb 9-->8.7-->7.6-->9.2-->8.9-->9.2->9.3-->8.8->9.9-->9.2 # Respiratory failure --> per pulm, s/p trach --> COVID 19 test negative x 2 # Dysphagia s/p gtube with nepro --> per gi # ESRD with r fem julito --> hd as per renal # Dvt ppx scds Appreciate consultation and dw Rn Subjective Constitutional: Denies: no symptoms, chills, fever, malaise, weakness, other HEENT: Denies: no symptoms, eye pain, blurred vision, tearing, double vision, ear pain, ear discharge, nose pain, nose congestion, throat pain, throat swelling, mouth pain, mouth swelling, other Gastrointestinal/Abdominal: Denies: no symptoms, abdomen distended, abdominal pain, black stools, tarry stools, blood in stool, constipated, diarrhea, difficulty swallowing, nausea, poor appetite, poor fluid intake, rectal bleeding , vomiting, other Genitourinary: Denies: no symptoms, burning, discharge, frequency, flank pain, hematuria, incontinence, pain, urgency, other Neurologic/Psychiatric: Denies: no symptoms, anxiety, depressed, emotional problems, headache, numbness, paresthesia, pre-existing deficit, seizure, tingling, tremors, weakness, other Endocrine: Denies: no symptoms, excessive sweating, flushing, intolerance to cold, intolerance to heat, increased hunger, increased thirst, increased urine, unexplained weight gain, unexplained weight loss, other Allergies: Coded Allergies: No Known Allergies (Unverified , 06/10/19) Subjective 08/15 meds noted, no bleeding, hgb 8.8, wbc 28, path flow pending 08/16 flow pending dw pathologist, results pending, wbc 25, hgb 9 08/17 labs reviewed, meds reviewed, meds noted, no night sweats 08/19 remains obtunded, on vent/trach, no bleeding wbc 21.7 08/20 labs have been reviewed, no bleeding, wbc still elev, path reviewed 08/21 labs are noted, no bleeding, on vent, wbc better 08/22 labs noted, no bleeding, meds reviewed, wbc 24 hgb 7.6 08/23 vent, off abx, c diff negative, h/h stable 08/24 labs reviewed, on abx, wbc 17, hgb 8.9, no hemolysis 08/26 reviewed flow and is negative for leukemia, matt rn 08/27 meds reviewed, no night sweats, matt rn, no major bleeding 08/28 meds reivewed, labs noted 08/29 wbc is stable, approx 15, hgb 8.8, no hemolysis 08/30 labs are noted, is for colo today, hgb 9.9 08/31 right fem julito in place, unchanged, hgb 9.2, gi aware 09/01 labs noted, hgb 8.8, plt >600, no bleeding 09/02 labs noted, no bleeding, with elev wbc still, no new changes 09/03 meds are noted, no bleeding, labs reviewed hgb 8.6 09/04 no major events, hd as per renal, abx, no bleeding Objective Objective Current Medications Medications (Trade) Dose Ordered Sig/Leonel Route PRN Reason Start Time Stop Time Status Last Admin Dose Admin Acetaminophen (Tylenol) 650 mg Q4H PRN GT Mild Pain / fever 08/09/19 05:30 09/08/19 05:29 08/26/19 21:44 Al Hydroxide/Mg Hydroxide (Mylanta) 30 ml FOUR TIMES A DAY PRN GT constipation 08/09/19 06:00 09/08/19 05:29 Ascorbic Acid (Vitamin C) 500 mg DAILY GT 08/09/19 09:00 09/08/19 08:59 09/05/19 09:10 Atorvastatin Calcium (Lipitor) 40 mg BEDTIME GT 08/09/19 21:00 11/07/19 20:59 09/04/19 21:12 Chlorhexidine Gluconate (Felipa-Hex 2%) 1 applic DAILY@1999 TOPIC 08/15/19 20:00 11/13/19 19:59 09/04/19 21:11 Clonidine HCl (Catapres Tab) 0.1 mg Q4H PRN GT SBP>150 08/12/19 10:45 11/10/19 06:44 08/27/19 04:39 Dextrose (Dextrose 50%) 25 ml Q30M PRN IV Hypoglycemia 08/09/19 07:30 11/07/19 07:29 Dextrose (Dextrose 50%) 50 ml Q30M PRN IV Hypoglycemia 08/09/19 07:30 11/07/19 07:29 Epoetin Andreas (Epoetin Andreas(ESRD on dialysis)) 10,000 unit WED-WED-WED SUBQ 08/18/19 21:00 11/16/19 20:59 09/04/19 21:12 Famotidine (Pepcid) 20 mg DAILY GT 08/30/19 09:00 11/28/19 08:59 09/05/19 09:11 Heparin Sodium (Porcine) (Heparin Sod 1000 units/ml 10ml) 500 unit ONCE PRN IV HD 09/05/19 06:00 09/05/19 23:59 Heparin Sodium (Porcine) (Heparin) 1,000 unit POSTHD PRN INJ POST HD 09/05/19 06:00 09/05/19 23:59 Insulin Aspart (NovoLOG) Q6HR SUBQ 08/10/19 00:00 11/07/19 11:29 09/05/19 11:33 Loperamide HCl (Imodium) 2 mg Q4H PRN GT Diarrhea 08/09/19 08:00 09/08/19 07:59 09/05/19 11:30 Metoprolol Tartrate (Lopressor) 200 mg Q12HR GT 08/09/19 09:00 11/07/19 08:59 09/04/19 21:11 Minoxidil (Loniten) 5 mg DAILY GT 08/09/19 09:00 11/07/19 08:59 09/04/19 09:21 Multivitamins (Multivitamins W/ Minerals 15ml Liquid) 15 ml DAILY GT 08/09/19 09:00 09/08/19 08:59 09/05/19 09:11 Piperacillin Sod/ Tazobactam Sod 2.25 gm/Dextrose 55 ml @ 110 mls/hr Q8H IV 09/04/19 15:00 09/11/19 14:59 09/05/19 06:05 Sodium Chloride 1,000 ml @ 500 mls/hr Q2H PRN IVLG sbp<90 during hd 09/05/19 06:00 09/05/19 23:59 Vitamin B Complex/ Vit C/Folic Acid (Nephrovite) 1 tab DAILY GT 08/09/19 09:00 09/08/19 08:59 09/05/19 09:11 Vitamin D (Vitamin D) 1,000 intlu DAILY GT 08/09/19 09:00 09/08/19 08:59 09/05/19 09:11 Zinc Oxide (Zinc Oxide) 1 applic BID TOPIC 08/10/19 18:00 11/08/19 17:59 09/05/19 09:11 Last 24 Hour Vital Signs Date Time Temp Pulse Resp B/P (MAP) Pulse Ox O2 Delivery O2 Flow Rate FiO2 09/05/19 12:00 Mechanical Ventilator 09/05/19 12:00 98.1 75 21 143/82 (102) 100 09/05/19 09:33 74 09/05/19 09:24 70 15 24 09/05/19 09:00 73 134/59 09/05/19 09:00 134/59 09/05/19 08:00 Mechanical Ventilator 09/05/19 08:00 24 09/05/19 08:00 98.2 73 15 134/59 (84) 100 09/05/19 07:07 68 15 24 09/05/19 04:00 Mechanical Ventilator 09/05/19 04:00 24 09/05/19 03:55 97.5 74 20 146/61 (89) 100 09/05/19 03:41 74 09/05/19 03:19 72 16 24 09/05/19 00:00 69 09/05/19 00:00 Mechanical Ventilator 09/05/19 00:00 24 09/05/19 00:00 97.7 70 16 139/66 (90) 100 09/04/19 23:16 70 16 24 09/04/19 21:11 76 147/67 09/04/19 20:00 24 09/04/19 20:00 Mechanical Ventilator 09/04/19 20:00 98.2 75 16 147/67 (93) 100 09/04/19 19:44 76 17 24 09/04/19 19:03 76 09/04/19 16:00 24 09/04/19 16:00 Mechanical Ventilator 09/04/19 16:00 74 09/04/19 16:00 98.1 76 16 143/77 (99) 100 09/04/19 15:05 79 16 24 09/04/19 13:04 98.4 72 16 149/72 (97) 100 09/04/19 12:00 Mechanical Ventilator 09/04/19 12:00 73 09/04/19 12:00 24 09/04/19 12:00 98.4 76 16 139/71 (93) 100 09/04/19 11:05 69 15 24 09/04/19 09:21 84 127/48 09/04/19 09:21 127/48 09/04/19 08:00 24 09/04/19 08:00 Mechanical Ventilator 09/04/19 08:00 88 09/04/19 08:00 98.2 84 16 127/48 (74) 100 09/04/19 07:15 90 19 24 09/04/19 04:00 98.4 89 16 135/76 (95) 100 09/04/19 04:00 24 09/04/19 04:00 Mechanical Ventilator 09/04/19 03:28 86 09/04/19 03:05 90 18 24 09/04/19 00:00 Mechanical Ventilator 09/04/19 00:00 99.1 86 16 147/80 (102) 99 09/03/19 23:30 86 09/03/19 23:19 81 17 24 09/03/19 20:37 85 119/70 09/03/19 20:00 Mechanical Ventilator 09/03/19 20:00 97.9 83 16 119/70 (86) 100 09/03/19 20:00 24 09/03/19 19:32 82 09/03/19 18:57 82 21 24 09/03/19 16:00 Mechanical Ventilator 09/03/19 16:00 75 09/03/19 16:00 24 09/03/19 15:14 98.4 74 16 132/66 (88) 100 09/03/19 15:01 75 19 24 Intake and Output 09/04/19 09/05/19 19:00 07:00 Intake Total 855 ml 635 ml Balance 855 ml 635 ml Free Water 50 ml IV Total 355 ml 55 ml Tube Feeding 400 ml 530 ml Other 50 ml 50 ml # Bowel Movements 20 90 Labs Test 09/02/19 16:54 09/03/19 00:39 09/03/19 06:11 09/04/19 00:21 POC Whole Blood Glucose 179 MG/DL (74-106) 168 MG/DL (74-106) Test 09/04/19 04:01 09/04/19 05:15 09/04/19 12:58 09/04/19 17:30 White Blood Count 18.5 K/UL (4.8-10.8) Red Blood Count 3.22 M/UL (4.70-6.10) Hemoglobin 8.6 G/DL (14.2-18.0) Hematocrit 27.4 % (42.0-52.0) Mean Corpuscular Volume 85 FL (80-99) Mean Corpuscular Hemoglobin 26.7 PG (27.0-31.0) Mean Corpuscular Hemoglobin Concent 31.4 G/DL (32.0-36.0) Red Cell Distribution Width 16.9 % (11.6-14.8) Platelet Count 689 K/UL (150-450) Mean Platelet Volume 5.9 FL (6.5-10.1) Neutrophils (%) (Auto) % (45.0-75.0) Lymphocytes (%) (Auto) % (20.0-45.0) Monocytes (%) (Auto) % (1.0-10.0) Eosinophils (%) (Auto) % (0.0-3.0) Basophils (%) (Auto) % (0.0-2.0) Differential Total Cells Counted 100 Neutrophils % (Manual) 70 % (45-75) Lymphocytes % (Manual) 10 % (20-45) Monocytes % (Manual) 15 % (1-10) Eosinophils % (Manual) 5 % (0-3) Basophils % (Manual) 0 % (0-2) Band Neutrophils 0 % (0-8) Platelet Estimate Increased Platelet Morphology Normal Polychromasia 2+ Hypochromasia 1+ Anisocytosis 1+ Sodium Level 133 MMOL/L (136-145) Potassium Level 3.6 MMOL/L (3.5-5.1) Chloride Level 96 MMOL/L (98-107) Carbon Dioxide Level 34 MMOL/L (21-32) Anion Gap 3 mmol/L (5-15) Blood Urea Nitrogen 50 mg/dL (7-18) Creatinine 2.4 MG/DL (0.55-1.30) Estimat Glomerular Filtration Rate 26.3 mL/min (>60) Glucose Level 169 MG/DL (74-106) Calcium Level 8.7 MG/DL (8.5-10.1) POC Whole Blood Glucose 166 MG/DL (74-106) 191 MG/DL (74-106) 186 MG/DL (74-106) Test 09/05/19 04:00 09/05/19 11:29 White Blood Count 18.0 K/UL (4.8-10.8) Red Blood Count 3.18 M/UL (4.70-6.10) Hemoglobin 8.3 G/DL (14.2-18.0) Hematocrit 26.9 % (42.0-52.0) Mean Corpuscular Volume 85 FL (80-99) Mean Corpuscular Hemoglobin 26.1 PG (27.0-31.0) Mean Corpuscular Hemoglobin Concent 30.8 G/DL (32.0-36.0) Red Cell Distribution Width 16.9 % (11.6-14.8) Platelet Count 621 K/UL (150-450) Mean Platelet Volume 6.0 FL (6.5-10.1) Neutrophils (%) (Auto) % (45.0-75.0) Lymphocytes (%) (Auto) % (20.0-45.0) Monocytes (%) (Auto) % (1.0-10.0) Eosinophils (%) (Auto) % (0.0-3.0) Basophils (%) (Auto) % (0.0-2.0) Differential Total Cells Counted 100 Neutrophils % (Manual) 80 % (45-75) Lymphocytes % (Manual) 12 % (20-45) Monocytes % (Manual) 6 % (1-10) Eosinophils % (Manual) 2 % (0-3) Basophils % (Manual) 0 % (0-2) Band Neutrophils 0 % (0-8) Platelet Estimate Increased Platelet Morphology Normal Anisocytosis 1+ Sodium Level 132 MMOL/L (136-145) Potassium Level 3.8 MMOL/L (3.5-5.1) Chloride Level 96 MMOL/L (98-107) Carbon Dioxide Level 34 MMOL/L (21-32) Anion Gap 2 mmol/L (5-15) Blood Urea Nitrogen 65 mg/dL (7-18) Creatinine 2.9 MG/DL (0.55-1.30) Estimat Glomerular Filtration Rate 21.2 mL/min (>60) Glucose Level 161 MG/DL (74-106) Calcium Level 8.8 MG/DL (8.5-10.1) Phosphorus Level 1.0 MG/DL (2.5-4.9) Total Bilirubin 0.4 MG/DL (0.2-1.0) Direct Bilirubin 0.2 MG/DL (0.0-0.3) Aspartate Amino Transf (AST/SGOT) 73 U/L (15-37) Alanine Aminotransferase (ALT/SGPT) 53 U/L (12-78) Alkaline Phosphatase 276 U/L (46-116) Total Protein 7.5 G/DL (6.4-8.2) Albumin 1.4 G/DL (3.4-5.0) Height (Feet): 5 Height (Inches): 10.00 Weight (Pounds): 168 Objective Physical Exam General Appearance: nad, Chronically Ill Head: normocephalic Eyes: right eye PERRL - Will not open left eye ENT: moist mucus membranes Neck: other - submandibular mass R, fairly rigid with resistance to rotation to L, tracheotomy Respiratory: decreased breath sounds, crackles, other - pacemaker, vent+ Cardiovascular: regular rate, rhythm, edema - anasarca Gastrointestinal: non tender, distended, other - G tube Genitourinary: other Musculoskeletal: other - Contractures all extremities Neurologic: sensory intact, motor weakness, responsive Psychiatric: other Skin: Decubitus/Ulcer - Stage III right elbow, stage III left elbow, stage II sacrum, stage III scrotum, warm/dry Fitz Campos MD Sep 05, 2019 12:41
--- NOTE | 2019-09-05 14:06 | Diagnostic Imaging Report ---
Procedure: XRAY Chest 1v Reason for study: Shortness of breath. Comparison films: 08/19/2019. FINDINGS: Tracheostomy and cardiac pacer again noted. There is a new right central venous catheter with the tip in the right atrium. Bilateral infiltrates or edema unchanged. Cardiac and mediastinal silhouette are within normal limits. Bilateral small effusions noted. The bony thorax appear unremarkable. IMPRESSION: Compared to prior exam, there is a new right permacath in place. No significant change bilateral infiltrates and small effusions
--- NOTE | 2019-09-05 15:05 | NUR ---
NURSE NOTES: Pt remains on dialysis at this time. Will administer Zosyn after hemodialysis complete.
--- NOTE | 2019-09-05 15:39 | NUR ---
NURSE NOTES: Hemodialysis complete. 2L output. Pt showing no sign of distress. Will continue to monitor and administer zosyn at this time.
[2019-09-05 16:00] VITALS: BP 121/56
--- NOTE | 2019-09-05 17:12 | General Progress Note ---
Assessment/Plan Assessment/Plan: IMPRESSION: 1. anemia. 2. GI bleed. 3. Leukocytosis. 4. Probable sepsis. + BCX 5. Acute on chronic renal failure. 6. Hyponatremia. 7. Severe protein-calorie malnutrition. 8. Significantly elevated C-reactive protein concerning for infectious etiology. 9. Tracheostomy, G-tube. 10. Ventilator dependence. 11. anasarca with bilateral pleural effusion 12. Hematuria PLAN needs placement care noted on vent surgical follow up monitor labs rate control monitor renal function: HD prognosis poor impression, plan, and exam edited and reviewed in detail care discussed with RN Subjective Allergies: Coded Allergies: No Known Allergies (Unverified , 06/10/19) Subjective remains ill on vent on HD Objective Last 24 Hour Vital Signs Date Time Temp Pulse Resp B/P (MAP) Pulse Ox O2 Delivery O2 Flow Rate FiO2 09/05/19 16:00 Mechanical Ventilator 09/05/19 16:00 97.9 85 19 121/56 (77) 100 09/05/19 16:00 24 09/05/19 13:02 72 18 24 09/05/19 12:00 Mechanical Ventilator 09/05/19 12:00 98.1 75 21 143/82 (102) 100 09/05/19 12:00 24 09/05/19 12:00 73 09/05/19 10:30 74 18 24 09/05/19 09:33 74 09/05/19 09:24 70 15 24 09/05/19 09:00 73 134/59 09/05/19 09:00 134/59 09/05/19 08:00 Mechanical Ventilator 09/05/19 08:00 24 09/05/19 08:00 98.2 73 15 134/59 (84) 100 09/05/19 07:07 68 15 24 09/05/19 04:00 Mechanical Ventilator 09/05/19 04:00 24 09/05/19 03:55 97.5 74 20 146/61 (89) 100 09/05/19 03:41 74 09/05/19 03:19 72 16 24 09/05/19 00:00 69 09/05/19 00:00 Mechanical Ventilator 09/05/19 00:00 24 09/05/19 00:00 97.7 70 16 139/66 (90) 100 09/04/19 23:16 70 16 24 09/04/19 21:11 76 147/67 09/04/19 20:00 24 09/04/19 20:00 Mechanical Ventilator 09/04/19 20:00 98.2 75 16 147/67 (93) 100 09/04/19 19:44 76 17 24 09/04/19 19:03 76 Intake and Output 09/04/19 09/05/19 19:00 07:00 Intake Total 855 ml 635 ml Balance 855 ml 635 ml Free Water 50 ml IV Total 355 ml 55 ml Tube Feeding 400 ml 530 ml Other 50 ml 50 ml # Bowel Movements 20 90 Laboratory Tests 09/04/19 17:30: POC Whole Blood Glucose 186H 09/05/19 04:00: White Blood Count 18.0H, Red Blood Count 3.18L, Hemoglobin 8.3L, Hematocrit 26.9L, Mean Corpuscular Volume 85, Mean Corpuscular Hemoglobin 26.1L, Mean Corpuscular Hemoglobin Concent 30.8L, Red Cell Distribution Width 16.9H, Platelet Count 621H, Mean Platelet Volume 6.0L, Neutrophils (%) (Auto) , Lymphocytes (%) (Auto) , Monocytes (%) (Auto) , Eosinophils (%) (Auto) , Basophils (%) (Auto) , Differential Total Cells Counted 100, Neutrophils % ( Manual) 80H, Lymphocytes % (Manual) 12L, Monocytes % (Manual) 6, Eosinophils % ( Manual) 2, Basophils % (Manual) 0, Band Neutrophils 0, Platelet Estimate IncreasedH, Platelet Morphology Normal, Anisocytosis 1+, Sodium Level 132L, Potassium Level 3.8, Chloride Level 96L, Carbon Dioxide Level 34H, Anion Gap 2L , Blood Urea Nitrogen 65H, Creatinine 2.9H, Estimat Glomerular Filtration Rate 21.2, Glucose Level 161H, Calcium Level 8.8, Phosphorus Level 1.0L, Total Bilirubin 0.4, Direct Bilirubin 0.2, Aspartate Amino Transf (AST/SGOT) 73H, Alanine Aminotransferase (ALT/SGPT) 53, Alkaline Phosphatase 276H, Total Protein 7.5, Albumin 1.4L 09/05/19 11:29: POC Whole Blood Glucose [Pending] Height (Feet): 5 Height (Inches): 10.00 Weight (Pounds): 168 Objective GENERAL: Ill-appearing male, chronically debilitated. HEENT: Tracheostomy in midline. Questionable fullness in the submandibular region. LUNGS: Coarse breath sounds. reduced breath sounds CARDIAC: S1, S2. Regular rate and rhythm. ABDOMEN: Soft. G-tube. EXTREMITIES: With noted edema. NEUROLOGICAL: Poorly responsive, weak diffusely. Kain Ramirez MD Sep 05, 2019 17:12
--- NOTE | 2019-09-05 17:17 | NUR ---
CASE MANAGEMENT: REVIEW SI: PNA . ESRD on HD T 97.5 HR 75 RR 21 BP 121/56 SAT 100% MECH VENT FIO2 24 WBC 18.0 H/H 8.3/26.9 NA 132 BUN 65 CR 2.9 IS: ZOSYN IV Q8HR EPOETIN SUBQ QMWF NOVOLOG SUBQ Q6HR HD NEEDED PATIENT ADMITTED TO [facility] DCP: PATIENT IS FROM [facility]
--- NOTE | 2019-09-05 18:37 | NUR ---
NURSE NOTES: Mentation remains unchanged. Eyes size 4 and PERRLA but sluggish. Withdraws all extremities. Upper extremities contracted. Lower extremities weak. Ventilator setting AC 15, TV 450, FiO2 24%, and PEEP 5. No sign of distress. Patient cleaned and repositioned. Rectal tube leaking slightly. Triad cream applied. Will continue to monitor.
--- NOTE | 2019-09-05 19:31 | NUR ---
HAND-OFF: Report given to TAMICA Worley.
--- NOTE | 2019-09-05 19:33 | NUR ---
RESPIRATORY NOTES: Received patient on vent settings 15/450/24%/ +5. patient is portex 8. patient b/s rhonchi bilaterally with moderate to large white to yellow sputum thick. pt. sat 99% on 24% Fio2. vent plugged into red outlet, ambu bag at bedside, trach at bedside, and alarms are on and audible. will continue to monitor.
--- NOTE | 2019-09-05 19:35 | NUR ---
NURSE NOTES: Received patient's report from TAMICA Roemro. Pt is on bed, sleeping. No s/s of respiratory distress noted. Pt is on vent. SpO2 99%, RR 26 at this moment. Pt is on rectal tube, drain well, brown liquid stool noted. IV site clean, intact noted. G-tube feeding, Vital AF 1.2 running @ 50mL/hr. Pt is semi-rivera position. Call-light within reach. Bed is low and locked. Will continue to monitor with plan of care.
[2019-09-05 20:00] VITALS: BP 130/25
[2019-09-05] MEDS: Dyna-Hex 2% Top Sol 2oz TOPIC SCH (20:17)
[2019-09-05] MEDS: Atorvastatin 20mg tab GT SCH (20:17)
--- NOTE | 2019-09-05 21:44 | General Progress Note ---
Assessment/Plan Assessment/Plan: Assessment - colonoscopy negative to hepatic flexure - diarrhea - ? TF related - abnormal LFT - Anemia - leukocytosis - stool OB (+) - EGD --> gastritis - Renal failure - Sepsis / leukocytosis - Anasarca - resp failure, trach - dysphagia, GT - encephalopathy, contracted - poor px Recommendations - Continue TF - change formula - Elevate HOB - f/u Biopsies of colon --> negative - PPI - abx - supportive care Subjective Allergies: Coded Allergies: No Known Allergies (Unverified , 06/10/19) Subjective Above noted d/w RN small volume liq stools noted Objective Last 24 Hour Vital Signs Date Time Temp Pulse Resp B/P (MAP) Pulse Ox O2 Delivery O2 Flow Rate FiO2 09/05/19 21:08 71 19 24 09/05/19 20:17 86 133/55 09/05/19 20:00 98.1 82 18 130/25 (60) 100 09/05/19 20:00 24 09/05/19 20:00 Mechanical Ventilator 09/05/19 19:08 85 18 24 09/05/19 17:22 86 24 24 09/05/19 16:00 81 09/05/19 16:00 Mechanical Ventilator 09/05/19 16:00 97.9 85 19 121/56 (77) 100 09/05/19 16:00 24 09/05/19 15:15 80 22 24 09/05/19 13:02 72 18 24 09/05/19 12:00 Mechanical Ventilator 09/05/19 12:00 98.1 75 21 143/82 (102) 100 09/05/19 12:00 24 09/05/19 12:00 73 09/05/19 10:30 74 18 24 09/05/19 09:33 74 09/05/19 09:24 70 15 24 09/05/19 09:00 73 134/59 09/05/19 09:00 134/59 09/05/19 08:00 Mechanical Ventilator 09/05/19 08:00 24 09/05/19 08:00 98.2 73 15 134/59 (84) 100 09/05/19 07:07 68 15 24 09/05/19 04:00 Mechanical Ventilator 09/05/19 04:00 24 09/05/19 03:55 97.5 74 20 146/61 (89) 100 09/05/19 03:41 74 09/05/19 03:19 72 16 24 09/05/19 00:00 69 09/05/19 00:00 Mechanical Ventilator 09/05/19 00:00 24 09/05/19 00:00 97.7 70 16 139/66 (90) 100 09/04/19 23:16 70 16 24 Intake and Output 09/04/19 09/05/19 19:00 07:00 Intake Total 855 ml 635 ml Balance 855 ml 635 ml Free Water 50 ml IV Total 355 ml 55 ml Tube Feeding 400 ml 530 ml Other 50 ml 50 ml # Bowel Movements 20 90 Laboratory Tests 09/05/19 04:00: White Blood Count 18.0H, Red Blood Count 3.18L, Hemoglobin 8.3L, Hematocrit 26.9L, Mean Corpuscular Volume 85, Mean Corpuscular Hemoglobin 26.1L, Mean Corpuscular Hemoglobin Concent 30.8L, Red Cell Distribution Width 16.9H, Platelet Count 621H, Mean Platelet Volume 6.0L, Neutrophils (%) (Auto) , Lymphocytes (%) (Auto) , Monocytes (%) (Auto) , Eosinophils (%) (Auto) , Basophils (%) (Auto) , Differential Total Cells Counted 100, Neutrophils % ( Manual) 80H, Lymphocytes % (Manual) 12L, Monocytes % (Manual) 6, Eosinophils % ( Manual) 2, Basophils % (Manual) 0, Band Neutrophils 0, Platelet Estimate IncreasedH, Platelet Morphology Normal, Anisocytosis 1+, Sodium Level 132L, Potassium Level 3.8, Chloride Level 96L, Carbon Dioxide Level 34H, Anion Gap 2L , Blood Urea Nitrogen 65H, Creatinine 2.9H, Estimat Glomerular Filtration Rate 21.2, Glucose Level 161H, Calcium Level 8.8, Phosphorus Level 1.0L, Total Bilirubin 0.4, Direct Bilirubin 0.2, Aspartate Amino Transf (AST/SGOT) 73H, Alanine Aminotransferase (ALT/SGPT) 53, Alkaline Phosphatase 276H, Total Protein 7.5, Albumin 1.4L 09/05/19 11:29: POC Whole Blood Glucose [Pending] 09/05/19 18:00: POC Whole Blood Glucose 180H Height (Feet): 5 Height (Inches): 10.00 Weight (Pounds): 168 Objective Debilitated AA man NCAT (+) trach coarse BS RR abd distended, anasarca, (+) GT ext (+) edema contracted Ronny Mustafa MD Sep 05, 2019 21:44
[2019-09-06] VITALS: BP 115/49
--- NOTE | 2019-09-06 02:53 | NUR ---
NURSE NOTES: Imodium PRN med is given for loose watery stool.
[2019-09-06 04:00] VITALS: BP 126/81
[2019-09-06 05:24] LABS: HEMATOCRIT 26.1 % (42.0-52.0); HEMOGLOBIN 8.1 G/DL (14.2-18.0); MEAN CORPUSCULAR VOLUME 85 FL (80-99); PLATELET COUNT 541 K/UL (150-450); RED BLOOD COUNT 3.09 M/UL (4.70-6.10); RED CELL DISTRIBUTION WIDTH 17.4 % (11.6-14.8)
[2019-09-06 05:45] LABS: ANION GAP 4 mmol/L (5-15); BLOOD UREA NITROGEN 39 mg/dL (7-18); CALCIUM 8.6 MG/DL (8.5-10.1); CARBON DIOXIDE 36 MMOL/L (21-32); CHLORIDE 106 MMOL/L (98-107); CREATININE 1.9 MG/DL (0.55-1.30); SODIUM 146 MMOL/L (136-145)
[2019-09-06] MEDS: NovoLOG Insulin Flexpen SUBQ SCH ×3 (06:13→17:06)
[2019-09-06] MEDS: Zosyn 2.25 gm in D5W 55ml IV SCH (06:17)
--- NOTE | 2019-09-06 07:33 | NUR ---
HAND-OFF: Report given to TAMICA العلي.
--- NOTE | 2019-09-06 07:45 | NUR ---
NURSE NOTES: Received report from TAMICA Worley. Patient in bed resting, no active s/s cardiac, respiratory distress noticed at this time. Patient V paced HR 78. Patient Obtunded, Trach to vent Portex 8 AC 15 TV 450 Fio2 24% PEEP 5 O2 sat 100% at this time. Patient on GT feeding running as prescribed rate Vital AF 1.2 @ 50ml/h. Right SC PermaCath intact, IV on left hand 22G, asymptomatic, patent, intact. Rectal tube draining well to gravity at this time. Bed in lowest position, side rails upx3, call light within reach, bed alarm on. Will continue to monitor.
[2019-09-06 08:00] VITALS: BP 111/52
[2019-09-06] MEDS: Metoprolol Tartrate 100mg tab GT SCH ×2 (08:09→20:33)
[2019-09-06] MEDS: Nephrovite tab (Rena-Vite) GT SCH (08:09)
[2019-09-06] MEDS: Vitamin D 1000 IU Tab GT SCH (08:09)
[2019-09-06] MEDS: Ascorbic Acid 500mg tab GT SCH (08:09)
[2019-09-06] MEDS: Multivitamins W/Minerals 15 ML UDC GT SCH (08:09)
[2019-09-06] MEDS: Zinc Oxide Oint 2oz TOPIC SCH ×2 (08:10→17:06)
[2019-09-06] MEDS: Minoxidil 2.5mg tab GT SCH (08:10)
--- NOTE | 2019-09-06 08:51 | General Progress Note ---
Assessment/Plan Assessment/Plan: IMPRESSION: 1. anemia. 2. GI bleed. 3. Leukocytosis. 4. Probable sepsis. + BCX 5. Acute on chronic renal failure. 6. Hyponatremia. 7. Severe protein-calorie malnutrition. 8. Significantly elevated C-reactive protein concerning for infectious etiology. 9. Tracheostomy, G-tube. 10. Ventilator dependence. 11. anasarca with bilateral pleural effusion 12. Hematuria PLAN needs placement care noted on vent surgical follow up monitor labs and adjust RX rate control ID follow up monitor renal function: HD prognosis poor impression, plan, and exam edited and reviewed in detail care discussed with RN Subjective Allergies: Coded Allergies: No Known Allergies (Unverified , 06/10/19) Subjective remains ill on vent on HD Objective Last 24 Hour Vital Signs Date Time Temp Pulse Resp B/P (MAP) Pulse Ox O2 Delivery O2 Flow Rate FiO2 09/06/19 08:10 110/52 09/06/19 08:09 75 111/52 09/06/19 08:00 Mechanical Ventilator 09/06/19 08:00 24 09/06/19 08:00 98.1 75 16 111/52 (71) 100 09/06/19 07:00 75 15 24 09/06/19 04:00 98.2 75 15 126/81 (96) 100 09/06/19 04:00 24 09/06/19 04:00 Mechanical Ventilator 09/06/19 03:56 75 09/06/19 02:57 75 18 24 09/06/19 01:00 75 16 24 09/06/19 00:00 98.2 76 16 115/49 (71) 100 09/06/19 00:00 Mechanical Ventilator 09/06/19 00:00 75 09/06/19 00:00 24 09/05/19 23:14 75 16 24 09/05/19 21:08 71 19 24 09/05/19 20:17 86 133/55 09/05/19 20:00 98.1 82 18 130/25 (60) 100 09/05/19 20:00 24 09/05/19 20:00 Mechanical Ventilator 09/05/19 19:20 82 09/05/19 19:08 85 18 24 09/05/19 17:22 86 24 24 09/05/19 16:00 81 09/05/19 16:00 Mechanical Ventilator 09/05/19 16:00 97.9 85 19 121/56 (77) 100 09/05/19 16:00 24 09/05/19 15:15 80 22 24 09/05/19 13:02 72 18 24 09/05/19 12:00 Mechanical Ventilator 09/05/19 12:00 98.1 75 21 143/82 (102) 100 09/05/19 12:00 24 09/05/19 12:00 73 09/05/19 10:30 74 18 24 09/05/19 09:33 74 09/05/19 09:24 70 15 24 09/05/19 09:00 73 134/59 09/05/19 09:00 134/59 Intake and Output 09/05/19 09/06/19 19:00 07:00 Intake Total 705 ml 755 ml Output Total 2025 ml 0 ml Balance -1320 ml 755 ml Free Water 50 ml IV Total 55 ml 55 ml Tube Feeding 600 ml 650 ml Other 50 ml Stool Total 25 ml 0 ml Hemodialysis UF 2000 ml # Voids 1 Laboratory Tests 09/05/19 11:29: POC Whole Blood Glucose [Pending] 09/05/19 18:00: POC Whole Blood Glucose 180H 09/06/19 03:45: White Blood Count 18.0H, Red Blood Count 3.09L, Hemoglobin 8.1L, Hematocrit 26.1L, Mean Corpuscular Volume 85, Mean Corpuscular Hemoglobin 26.4L, Mean Corpuscular Hemoglobin Concent 31.2L, Red Cell Distribution Width 17.4H, Platelet Count 541H, Mean Platelet Volume 6.0L, Neutrophils (%) (Auto) , Lymphocytes (%) (Auto) , Monocytes (%) (Auto) , Eosinophils (%) (Auto) , Basophils (%) (Auto) , Differential Total Cells Counted 100, Neutrophils % ( Manual) 72, Lymphocytes % (Manual) 18L, Monocytes % (Manual) 3, Eosinophils % ( Manual) 7H, Basophils % (Manual) 0, Band Neutrophils 0, Nucleated Red Blood Cells 1, Platelet Estimate Adequate, Platelet Morphology Normal, Hypochromasia 2 +, Anisocytosis 1+, Sodium Level 146#H, Potassium Level 4.0, Chloride Level 106 , Carbon Dioxide Level 36H, Anion Gap 4L, Blood Urea Nitrogen 39H, Creatinine 1.9H, Estimat Glomerular Filtration Rate 34.5, Glucose Level 166H, Calcium Level 8.6 Height (Feet): 5 Height (Inches): 10.00 Weight (Pounds): 168 Objective GENERAL: Ill-appearing male, chronically debilitated. HEENT: Tracheostomy in midline. Questionable fullness in the submandibular region. LUNGS: Coarse breath sounds. reduced breath sounds CARDIAC: S1, S2. Regular rate and rhythm. ABDOMEN: Soft. G-tube. EXTREMITIES: With noted edema. NEUROLOGICAL: Poorly responsive, weak diffusely. Kain Ramirez MD Sep 06, 2019 08:51
--- NOTE | 2019-09-06 10:49 | Infectious Diseases Prog Note ---
Assessment/Plan Assessment/Plan antibiotics : zosyn A 1. klebsiella catheter infection s/p removal 2. respiratory failure 3. leucocytosis 4. klebsiella, pseudomonas, providencia pneumonia s/p rx COVID 19 test negative x 2 5. renal failure on HD P 1. d/c zosyn 2. start iv gentamicin 3. will follow up cultures Subjective ROS Limited/Unobtainable: Yes Allergies: Coded Allergies: No Known Allergies (Unverified , 06/10/19) Objective Last 24 Hour Vital Signs Date Time Temp Pulse Resp B/P (MAP) Pulse Ox O2 Delivery O2 Flow Rate FiO2 09/06/19 09:04 71 15 24 09/06/19 08:10 110/52 09/06/19 08:09 75 111/52 09/06/19 08:00 Mechanical Ventilator 09/06/19 08:00 77 09/06/19 08:00 24 09/06/19 08:00 98.1 75 16 111/52 (71) 100 09/06/19 07:00 75 15 24 09/06/19 04:00 98.2 75 15 126/81 (96) 100 09/06/19 04:00 24 09/06/19 04:00 Mechanical Ventilator 09/06/19 03:56 75 09/06/19 02:57 75 18 24 09/06/19 01:00 75 16 24 09/06/19 00:00 98.2 76 16 115/49 (71) 100 09/06/19 00:00 Mechanical Ventilator 09/06/19 00:00 75 09/06/19 00:00 24 09/05/19 23:14 75 16 24 09/05/19 21:08 71 19 24 09/05/19 20:17 86 133/55 09/05/19 20:00 98.1 82 18 130/25 (60) 100 09/05/19 20:00 24 09/05/19 20:00 Mechanical Ventilator 09/05/19 19:20 82 09/05/19 19:08 85 18 24 09/05/19 17:22 86 24 24 09/05/19 16:00 81 09/05/19 16:00 Mechanical Ventilator 09/05/19 16:00 97.9 85 19 121/56 (77) 100 09/05/19 16:00 24 09/05/19 15:15 80 22 24 09/05/19 13:02 72 18 24 09/05/19 12:00 Mechanical Ventilator 09/05/19 12:00 98.1 75 21 143/82 (102) 100 09/05/19 12:00 24 09/05/19 12:00 73 Height (Feet): 5 Height (Inches): 10.00 Weight (Pounds): 168 HEENT: status post trach Respiratory/Chest: lungs clear Cardiovascular: normal rate, regular rhythm, no gallop/murmur Abdomen: soft, non tender, other - GT Extremities: other - + edema, right subclavian catheter Microbiology Date/Time Source Procedure Growth Status 09/04/19 11:20 Stool Clostridium difficile Toxin Assay - Final Complete Laboratory Tests Test 09/05/19 11:29 09/05/19 18:00 09/06/19 03:45 POC Whole Blood Glucose Pending 180 MG/DL (74-106) H White Blood Count 18.0 K/UL (4.8-10.8) H Red Blood Count 3.09 M/UL (4.70-6.10) L Hemoglobin 8.1 G/DL (14.2-18.0) L Hematocrit 26.1 % (42.0-52.0) L Mean Corpuscular Volume 85 FL (80-99) Mean Corpuscular Hemoglobin 26.4 PG (27.0-31.0) L Mean Corpuscular Hemoglobin Concent 31.2 G/DL (32.0-36.0) L Red Cell Distribution Width 17.4 % (11.6-14.8) H Platelet Count 541 K/UL (150-450) H Mean Platelet Volume 6.0 FL (6.5-10.1) L Neutrophils (%) (Auto) % (45.0-75.0) Lymphocytes (%) (Auto) % (20.0-45.0) Monocytes (%) (Auto) % (1.0-10.0) Eosinophils (%) (Auto) % (0.0-3.0) Basophils (%) (Auto) % (0.0-2.0) Differential Total Cells Counted 100 Neutrophils % (Manual) 72 % (45-75) Lymphocytes % (Manual) 18 % (20-45) L Monocytes % (Manual) 3 % (1-10) Eosinophils % (Manual) 7 % (0-3) H Basophils % (Manual) 0 % (0-2) Band Neutrophils 0 % (0-8) Nucleated Red Blood Cells 1 /100 WBC Platelet Estimate Adequate Platelet Morphology Normal Hypochromasia 2+ Anisocytosis 1+ Sodium Level 146 MMOL/L (136-145) #H Potassium Level 4.0 MMOL/L (3.5-5.1) Chloride Level 106 MMOL/L (98-107) Carbon Dioxide Level 36 MMOL/L (21-32) H Anion Gap 4 mmol/L (5-15) L Blood Urea Nitrogen 39 mg/dL (7-18) H Creatinine 1.9 MG/DL (0.55-1.30) H Estimat Glomerular Filtration Rate 34.5 mL/min (>60) Glucose Level 166 MG/DL (74-106) H Calcium Level 8.6 MG/DL (8.5-10.1) Current Medications Medications (Trade) Dose Ordered Sig/Leonel Route PRN Reason Start Time Stop Time Status Last Admin Dose Admin Acetaminophen (Tylenol) 650 mg Q4H PRN GT Mild Pain / fever 08/09/19 05:30 09/08/19 05:29 08/26/19 21:44 Al Hydroxide/Mg Hydroxide (Mylanta) 30 ml FOUR TIMES A DAY PRN GT constipation 08/09/19 06:00 09/08/19 05:29 Ascorbic Acid (Vitamin C) 500 mg DAILY GT 08/09/19 09:00 09/08/19 08:59 09/06/19 08:09 Atorvastatin Calcium (Lipitor) 40 mg BEDTIME GT 08/09/19 21:00 11/07/19 20:59 09/05/19 20:17 Chlorhexidine Gluconate (Felipa-Hex 2%) 1 applic DAILY@1999 TOPIC 08/15/19 20:00 11/13/19 19:59 09/05/19 20:17 Clonidine HCl (Catapres Tab) 0.1 mg Q4H PRN GT SBP>150 08/12/19 10:45 11/10/19 06:44 08/27/19 04:39 Dextrose (Dextrose 50%) 25 ml Q30M PRN IV Hypoglycemia 08/09/19 07:30 11/07/19 07:29 Dextrose (Dextrose 50%) 50 ml Q30M PRN IV Hypoglycemia 08/09/19 07:30 11/07/19 07:29 Epoetin Andreas (Epoetin Andreas(ESRD on dialysis)) 10,000 unit SUBQ 08/18/19 21:00 11/16/19 20:59 09/04/19 21:12 Famotidine (Pepcid) 20 mg DAILY GT 08/30/19 09:00 11/28/19 08:59 09/06/19 08:09 Insulin Aspart (NovoLOG) Q6HR SUBQ 08/10/19 00:00 11/07/19 11:29 09/06/19 06:13 Loperamide HCl (Imodium) 2 mg Q4H PRN GT Diarrhea 08/09/19 08:00 09/08/19 07:59 09/06/19 02:52 Metoprolol Tartrate (Lopressor) 200 mg Q12HR GT 08/09/19 09:00 11/07/19 08:59 09/06/19 08:09 Minoxidil (Loniten) 5 mg DAILY GT 08/09/19 09:00 11/07/19 08:59 09/04/19 09:21 Multivitamins (Multivitamins W/ Minerals 15ml Liquid) 15 ml DAILY GT 08/09/19 09:00 09/08/19 08:59 09/06/19 08:09 Piperacillin Sod/ Tazobactam Sod 2.25 gm/Dextrose 55 ml @ 110 mls/hr Q8H IV 09/04/19 15:00 09/11/19 14:59 09/06/19 06:17 Vitamin B Complex/ Vit C/Folic Acid (Nephrovite) 1 tab DAILY GT 08/09/19 09:00 09/08/19 08:59 09/06/19 08:09 Vitamin D (Vitamin D) 1,000 intlu DAILY GT 08/09/19 09:00 09/08/19 08:59 09/06/19 08:09 Zinc Oxide (Zinc Oxide) 1 applic BID TOPIC 08/10/19 18:00 11/08/19 17:59 09/06/19 08:10 Farnaz Lyle MD Sep 06, 2019 10:49
[2019-09-06] MEDS ORDERED: Gentamicin Rx monitoring MISC PRN (11:00)
--- NOTE | 2019-09-06 11:14 | Hematology/Onc Progress Note ---
Assessment/Plan Assessment/Plan Assessment/recs # Leukocytosis - with multiple infections, VRE UTI, flow is negative --> wbc trend 33-->28-->25->23->22->23->24->17.3-->17-->14->16-->15.6-->14-->14- >13->19->18 --> on abx, linezolid and zosyn--> zosyn-->off --> + blood cultures with coag neg staph likely contaminated --> as per id recs --> has ordered a flow cytometry (with pathology) --> does show increased nK cell activity --> JOURDAN 2 and bcr-abl labs ordered (these are send outs) --> plt 585-->613-->649-->669->663 # Anemia due to chronic disease/kidney disease as well, gi bleed + occult + noted --> was on iron in the past, now on hold --> has been started on Epogen sq --> as per renal care --> egd done and shows gastritis --> on ppi --> egd showed gastritis, colo recently done --> hgb 9-->8.7-->7.6-->9.2-->8.9-->9.2->9.3-->8.8->9.9-->9.2-->8.1 # Respiratory failure --> per pulm, s/p trach --> COVID 19 test negative x 2 # Dysphagia s/p gtube with nepro --> per gi # ESRD with r fem julito --> hd as per renal # Dvt ppx scds Appreciate consultation and dw Rn Subjective Constitutional: Denies: no symptoms, chills, fever, malaise, weakness, other HEENT: Denies: no symptoms, eye pain, blurred vision, tearing, double vision, ear pain, ear discharge, nose pain, nose congestion, throat pain, throat swelling, mouth pain, mouth swelling, other Respiratory: Denies: no symptoms, cough, shortness of breath, SOB with excertion, SOB at rest, sputum, wheezing, other Neurologic/Psychiatric: Denies: no symptoms, anxiety, depressed, emotional problems, headache, numbness, paresthesia, pre-existing deficit, seizure, tingling, tremors, weakness, other Endocrine: Denies: no symptoms, excessive sweating, flushing, intolerance to cold, intolerance to heat, increased hunger, increased thirst, increased urine, unexplained weight gain, unexplained weight loss, other Allergies: Coded Allergies: No Known Allergies (Unverified , 06/10/19) Subjective 08/15 meds noted, no bleeding, hgb 8.8, wbc 28, path flow pending 08/16 flow pending dw pathologist, results pending, wbc 25, hgb 9 08/17 labs reviewed, meds reviewed, meds noted, no night sweats 08/19 remains obtunded, on vent/trach, no bleeding wbc 21.7 08/20 labs have been reviewed, no bleeding, wbc still elev, path reviewed 08/21 labs are noted, no bleeding, on vent, wbc better 08/22 labs noted, no bleeding, meds reviewed, wbc 24 hgb 7.6 08/23 vent, off abx, c diff negative, h/h stable 08/24 labs reviewed, on abx, wbc 17, hgb 8.9, no hemolysis 08/26 reviewed flow and is negative for leukemia, matt rn 08/27 meds reviewed, no night sweats, matt rn, no major bleeding 08/28 meds reivewed, labs noted 08/29 wbc is stable, approx 15, hgb 8.8, no hemolysis 08/30 labs are noted, is for colo today, hgb 9.9 08/31 right fem julito in place, unchanged, hgb 9.2, gi aware 09/01 labs noted, hgb 8.8, plt >600, no bleeding 09/02 labs noted, no bleeding, with elev wbc still, no new changes 09/03 meds are noted, no bleeding, labs reviewed hgb 8.6 09/04 no major events, hd as per renal, abx, no bleeding hgb low Objective Objective Current Medications Medications (Trade) Dose Ordered Sig/Leonel Route PRN Reason Start Time Stop Time Status Last Admin Dose Admin Acetaminophen (Tylenol) 650 mg Q4H PRN GT Mild Pain / fever 08/09/19 05:30 09/08/19 05:29 08/26/19 21:44 Al Hydroxide/Mg Hydroxide (Mylanta) 30 ml FOUR TIMES A DAY PRN GT constipation 08/09/19 06:00 09/08/19 05:29 Ascorbic Acid (Vitamin C) 500 mg DAILY GT 08/09/19 09:00 09/08/19 08:59 09/06/19 08:09 Atorvastatin Calcium (Lipitor) 40 mg BEDTIME GT 08/09/19 21:00 11/07/19 20:59 09/05/19 20:17 Chlorhexidine Gluconate (Felipa-Hex 2%) 1 applic DAILY@1999 TOPIC 08/15/19 20:00 11/13/19 19:59 09/05/19 20:17 Clonidine HCl (Catapres Tab) 0.1 mg Q4H PRN GT SBP>150 08/12/19 10:45 11/10/19 06:44 08/27/19 04:39 Dextrose (Dextrose 50%) 25 ml Q30M PRN IV Hypoglycemia 08/09/19 07:30 11/07/19 07:29 Dextrose (Dextrose 50%) 50 ml Q30M PRN IV Hypoglycemia 08/09/19 07:30 11/07/19 07:29 Epoetin Andreas (Epoetin Andreas(ESRD on dialysis)) 10,000 unit WED-WED-WED SUBQ 08/18/19 21:00 11/16/19 20:59 09/04/19 21:12 Famotidine (Pepcid) 20 mg DAILY GT 08/30/19 09:00 11/28/19 08:59 09/06/19 08:09 Gentamicin Protocol (Gentamicin pharmacy to dose) 1 ea DAILY PRN MISC PER RX PROTOCOL 09/06/19 11:00 09/12/19 23:59 UNV Insulin Aspart (NovoLOG) Q6HR SUBQ 08/10/19 00:00 11/07/19 11:29 09/06/19 11:05 Loperamide HCl (Imodium) 2 mg Q4H PRN GT Diarrhea 08/09/19 08:00 09/08/19 07:59 09/06/19 02:52 Metoprolol Tartrate (Lopressor) 200 mg Q12HR GT 08/09/19 09:00 11/07/19 08:59 09/06/19 08:09 Minoxidil (Loniten) 5 mg DAILY GT 08/09/19 09:00 11/07/19 08:59 09/04/19 09:21 Multivitamins (Multivitamins W/ Minerals 15ml Liquid) 15 ml DAILY GT 08/09/19 09:00 09/08/19 08:59 09/06/19 08:09 Vitamin B Complex/ Vit C/Folic Acid (Nephrovite) 1 tab DAILY GT 08/09/19 09:00 09/08/19 08:59 09/06/19 08:09 Vitamin D (Vitamin D) 1,000 intlu DAILY GT 08/09/19 09:00 09/08/19 08:59 09/06/19 08:09 Zinc Oxide (Zinc Oxide) 1 applic BID TOPIC 08/10/19 18:00 11/08/19 17:59 09/06/19 08:10 Last 24 Hour Vital Signs Date Time Temp Pulse Resp B/P (MAP) Pulse Ox O2 Delivery O2 Flow Rate FiO2 09/06/19 09:04 71 15 24 09/06/19 08:10 110/52 09/06/19 08:09 75 111/52 09/06/19 08:00 Mechanical Ventilator 09/06/19 08:00 77 09/06/19 08:00 24 09/06/19 08:00 98.1 75 16 111/52 (71) 100 09/06/19 07:00 75 15 24 09/06/19 04:00 98.2 75 15 126/81 (96) 100 09/06/19 04:00 24 09/06/19 04:00 Mechanical Ventilator 09/06/19 03:56 75 09/06/19 02:57 75 18 24 09/06/19 01:00 75 16 24 09/06/19 00:00 98.2 76 16 115/49 (71) 100 09/06/19 00:00 Mechanical Ventilator 09/06/19 00:00 75 09/06/19 00:00 24 09/05/19 23:14 75 16 24 09/05/19 21:08 71 19 24 09/05/19 20:17 86 133/55 09/05/19 20:00 98.1 82 18 130/25 (60) 100 09/05/19 20:00 24 09/05/19 20:00 Mechanical Ventilator 09/05/19 19:20 82 09/05/19 19:08 85 18 24 09/05/19 17:22 86 24 24 09/05/19 16:00 81 09/05/19 16:00 Mechanical Ventilator 09/05/19 16:00 97.9 85 19 121/56 (77) 100 09/05/19 16:00 24 09/05/19 15:15 80 22 24 09/05/19 13:02 72 18 24 09/05/19 12:00 Mechanical Ventilator 09/05/19 12:00 98.1 75 21 143/82 (102) 100 09/05/19 12:00 24 09/05/19 12:00 73 09/05/19 10:30 74 18 24 09/05/19 09:33 74 09/05/19 09:24 70 15 24 09/05/19 09:00 73 134/59 09/05/19 09:00 134/59 09/05/19 08:00 Mechanical Ventilator 09/05/19 08:00 24 09/05/19 08:00 98.2 73 15 134/59 (84) 100 09/05/19 07:07 68 15 24 09/05/19 04:00 Mechanical Ventilator 09/05/19 04:00 24 09/05/19 03:55 97.5 74 20 146/61 (89) 100 09/05/19 03:41 74 09/05/19 03:19 72 16 24 09/05/19 00:00 69 09/05/19 00:00 Mechanical Ventilator 09/05/19 00:00 24 09/05/19 00:00 97.7 70 16 139/66 (90) 100 09/04/19 23:16 70 16 24 09/04/19 21:11 76 147/67 09/04/19 20:00 24 09/04/19 20:00 Mechanical Ventilator 09/04/19 20:00 98.2 75 16 147/67 (93) 100 09/04/19 19:44 76 17 24 09/04/19 19:03 76 09/04/19 16:00 24 09/04/19 16:00 Mechanical Ventilator 09/04/19 16:00 74 09/04/19 16:00 98.1 76 16 143/77 (99) 100 09/04/19 15:05 79 16 24 09/04/19 13:04 98.4 72 16 149/72 (97) 100 09/04/19 12:00 Mechanical Ventilator 09/04/19 12:00 73 09/04/19 12:00 24 09/04/19 12:00 98.4 76 16 139/71 (93) 100 Intake and Output 09/05/19 09/06/19 19:00 07:00 Intake Total 705 ml 755 ml Output Total 2025 ml 0 ml Balance -1320 ml 755 ml Free Water 50 ml IV Total 55 ml 55 ml Tube Feeding 600 ml 650 ml Other 50 ml Stool Total 25 ml 0 ml Hemodialysis UF 2000 ml # Voids 1 Labs Test 09/04/19 00:21 09/04/19 04:01 09/04/19 05:15 09/04/19 12:58 White Blood Count 18.5 K/UL (4.8-10.8) Red Blood Count 3.22 M/UL (4.70-6.10) Hemoglobin 8.6 G/DL (14.2-18.0) Hematocrit 27.4 % (42.0-52.0) Mean Corpuscular Volume 85 FL (80-99) Mean Corpuscular Hemoglobin 26.7 PG (27.0-31.0) Mean Corpuscular Hemoglobin Concent 31.4 G/DL (32.0-36.0) Red Cell Distribution Width 16.9 % (11.6-14.8) Platelet Count 689 K/UL (150-450) Mean Platelet Volume 5.9 FL (6.5-10.1) Neutrophils (%) (Auto) % (45.0-75.0) Lymphocytes (%) (Auto) % (20.0-45.0) Monocytes (%) (Auto) % (1.0-10.0) Eosinophils (%) (Auto) % (0.0-3.0) Basophils (%) (Auto) % (0.0-2.0) Differential Total Cells Counted 100 Neutrophils % (Manual) 70 % (45-75) Lymphocytes % (Manual) 10 % (20-45) Monocytes % (Manual) 15 % (1-10) Eosinophils % (Manual) 5 % (0-3) Basophils % (Manual) 0 % (0-2) Band Neutrophils 0 % (0-8) Platelet Estimate Increased Platelet Morphology Normal Polychromasia 2+ Hypochromasia 1+ Anisocytosis 1+ Sodium Level 133 MMOL/L (136-145) Potassium Level 3.6 MMOL/L (3.5-5.1) Chloride Level 96 MMOL/L (98-107) Carbon Dioxide Level 34 MMOL/L (21-32) Anion Gap 3 mmol/L (5-15) Blood Urea Nitrogen 50 mg/dL (7-18) Creatinine 2.4 MG/DL (0.55-1.30) Estimat Glomerular Filtration Rate 26.3 mL/min (>60) Glucose Level 169 MG/DL (74-106) Calcium Level 8.7 MG/DL (8.5-10.1) POC Whole Blood Glucose 166 MG/DL (74-106) 191 MG/DL (74-106) Test 09/04/19 17:30 09/05/19 04:00 09/05/19 11:29 09/05/19 18:00 POC Whole Blood Glucose 186 MG/DL (74-106) 180 MG/DL (74-106) White Blood Count 18.0 K/UL (4.8-10.8) Red Blood Count 3.18 M/UL (4.70-6.10) Hemoglobin 8.3 G/DL (14.2-18.0) Hematocrit 26.9 % (42.0-52.0) Mean Corpuscular Volume 85 FL (80-99) Mean Corpuscular Hemoglobin 26.1 PG (27.0-31.0) Mean Corpuscular Hemoglobin Concent 30.8 G/DL (32.0-36.0) Red Cell Distribution Width 16.9 % (11.6-14.8) Platelet Count 621 K/UL (150-450) Mean Platelet Volume 6.0 FL (6.5-10.1) Neutrophils (%) (Auto) % (45.0-75.0) Lymphocytes (%) (Auto) % (20.0-45.0) Monocytes (%) (Auto) % (1.0-10.0) Eosinophils (%) (Auto) % (0.0-3.0) Basophils (%) (Auto) % (0.0-2.0) Differential Total Cells Counted 100 Neutrophils % (Manual) 80 % (45-75) Lymphocytes % (Manual) 12 % (20-45) Monocytes % (Manual) 6 % (1-10) Eosinophils % (Manual) 2 % (0-3) Basophils % (Manual) 0 % (0-2) Band Neutrophils 0 % (0-8) Platelet Estimate Increased Platelet Morphology Normal Anisocytosis 1+ Sodium Level 132 MMOL/L (136-145) Potassium Level 3.8 MMOL/L (3.5-5.1) Chloride Level 96 MMOL/L (98-107) Carbon Dioxide Level 34 MMOL/L (21-32) Anion Gap 2 mmol/L (5-15) Blood Urea Nitrogen 65 mg/dL (7-18) Creatinine 2.9 MG/DL (0.55-1.30) Estimat Glomerular Filtration Rate 21.2 mL/min (>60) Glucose Level 161 MG/DL (74-106) Calcium Level 8.8 MG/DL (8.5-10.1) Phosphorus Level 1.0 MG/DL (2.5-4.9) Total Bilirubin 0.4 MG/DL (0.2-1.0) Direct Bilirubin 0.2 MG/DL (0.0-0.3) Aspartate Amino Transf (AST/SGOT) 73 U/L (15-37) Alanine Aminotransferase (ALT/SGPT) 53 U/L (12-78) Alkaline Phosphatase 276 U/L (46-116) Total Protein 7.5 G/DL (6.4-8.2) Albumin 1.4 G/DL (3.4-5.0) Test 09/06/19 03:45 09/06/19 11:01 White Blood Count 18.0 K/UL (4.8-10.8) Red Blood Count 3.09 M/UL (4.70-6.10) Hemoglobin 8.1 G/DL (14.2-18.0) Hematocrit 26.1 % (42.0-52.0) Mean Corpuscular Volume 85 FL (80-99) Mean Corpuscular Hemoglobin 26.4 PG (27.0-31.0) Mean Corpuscular Hemoglobin Concent 31.2 G/DL (32.0-36.0) Red Cell Distribution Width 17.4 % (11.6-14.8) Platelet Count 541 K/UL (150-450) Mean Platelet Volume 6.0 FL (6.5-10.1) Neutrophils (%) (Auto) % (45.0-75.0) Lymphocytes (%) (Auto) % (20.0-45.0) Monocytes (%) (Auto) % (1.0-10.0) Eosinophils (%) (Auto) % (0.0-3.0) Basophils (%) (Auto) % (0.0-2.0) Differential Total Cells Counted 100 Neutrophils % (Manual) 72 % (45-75) Lymphocytes % (Manual) 18 % (20-45) Monocytes % (Manual) 3 % (1-10) Eosinophils % (Manual) 7 % (0-3) Basophils % (Manual) 0 % (0-2) Band Neutrophils 0 % (0-8) Nucleated Red Blood Cells 1 /100 WBC Platelet Estimate Adequate Platelet Morphology Normal Hypochromasia 2+ Anisocytosis 1+ Sodium Level 146 MMOL/L (136-145) Potassium Level 4.0 MMOL/L (3.5-5.1) Chloride Level 106 MMOL/L (98-107) Carbon Dioxide Level 36 MMOL/L (21-32) Anion Gap 4 mmol/L (5-15) Blood Urea Nitrogen 39 mg/dL (7-18) Creatinine 1.9 MG/DL (0.55-1.30) Estimat Glomerular Filtration Rate 34.5 mL/min (>60) Glucose Level 166 MG/DL (74-106) Calcium Level 8.6 MG/DL (8.5-10.1) POC Whole Blood Glucose 151 MG/DL (74-106) Height (Feet): 5 Height (Inches): 10.00 Weight (Pounds): 168 Objective Physical Exam General Appearance: nad, Chronically Ill Head: normocephalic Eyes: right eye PERRL - Will not open left eye ENT: moist mucus membranes Neck: other - submandibular mass R, fairly rigid with resistance to rotation to L, tracheotomy Respiratory: decreased breath sounds, crackles, other - pacemaker, vent+ Cardiovascular: regular rate, rhythm, edema - anasarca Gastrointestinal: non tender, distended, other - G tube Genitourinary: other Musculoskeletal: other - Contractures all extremities Neurologic: sensory intact, motor weakness, responsive Psychiatric: other Skin: Decubitus/Ulcer - Stage III right elbow, stage III left elbow, stage II sacrum, stage III scrotum, warm/dry Fitz Campos MD Sep 06, 2019 11:14
[2019-09-06 12:00] VITALS: BP 148/73
--- NOTE | 2019-09-06 12:05 | General Progress Note ---
Assessment/Plan Assessment/Plan: Assessment - colonoscopy negative to hepatic flexure - diarrhea - presumed TF related - abnormal LFT - Anemia - leukocytosis - stool OB (+) - EGD --> gastritis - Renal failure - Sepsis / leukocytosis - Anasarca - resp failure, trach - dysphagia, GT - encephalopathy, contracted - poor px Recommendations - Continue TF - Elevate HOB - f/u Biopsies of colon --> negative - PPI - abx - supportive care Subjective Allergies: Coded Allergies: No Known Allergies (Unverified , 06/10/19) Subjective Above noted d/w RN (+) loose stools via rectal tube Objective Last 24 Hour Vital Signs Date Time Temp Pulse Resp B/P (MAP) Pulse Ox O2 Delivery O2 Flow Rate FiO2 09/06/19 11:17 72 19 24 09/06/19 09:04 71 15 24 09/06/19 08:10 110/52 09/06/19 08:09 75 111/52 09/06/19 08:00 Mechanical Ventilator 09/06/19 08:00 77 09/06/19 08:00 24 09/06/19 08:00 98.1 75 16 111/52 (71) 100 09/06/19 07:00 75 15 24 09/06/19 04:00 98.2 75 15 126/81 (96) 100 09/06/19 04:00 24 09/06/19 04:00 Mechanical Ventilator 09/06/19 03:56 75 09/06/19 02:57 75 18 24 09/06/19 01:00 75 16 24 09/06/19 00:00 98.2 76 16 115/49 (71) 100 09/06/19 00:00 Mechanical Ventilator 09/06/19 00:00 75 09/06/19 00:00 24 09/05/19 23:14 75 16 24 09/05/19 21:08 71 19 24 09/05/19 20:17 86 133/55 09/05/19 20:00 98.1 82 18 130/25 (60) 100 09/05/19 20:00 24 09/05/19 20:00 Mechanical Ventilator 09/05/19 19:20 82 09/05/19 19:08 85 18 24 09/05/19 17:22 86 24 24 09/05/19 16:00 81 09/05/19 16:00 Mechanical Ventilator 09/05/19 16:00 97.9 85 19 121/56 (77) 100 09/05/19 16:00 24 09/05/19 15:15 80 22 24 09/05/19 13:02 72 18 24 Intake and Output 09/05/19 09/06/19 19:00 07:00 Intake Total 705 ml 755 ml Output Total 2025 ml 0 ml Balance -1320 ml 755 ml Free Water 50 ml IV Total 55 ml 55 ml Tube Feeding 600 ml 650 ml Other 50 ml Stool Total 25 ml 0 ml Hemodialysis UF 2000 ml # Voids 1 Laboratory Tests 09/05/19 18:00: POC Whole Blood Glucose 180H 09/06/19 03:45: White Blood Count 18.0H, Red Blood Count 3.09L, Hemoglobin 8.1L, Hematocrit 26.1L, Mean Corpuscular Volume 85, Mean Corpuscular Hemoglobin 26.4L, Mean Corpuscular Hemoglobin Concent 31.2L, Red Cell Distribution Width 17.4H, Platelet Count 541H, Mean Platelet Volume 6.0L, Neutrophils (%) (Auto) , Lymphocytes (%) (Auto) , Monocytes (%) (Auto) , Eosinophils (%) (Auto) , Basophils (%) (Auto) , Differential Total Cells Counted 100, Neutrophils % ( Manual) 72, Lymphocytes % (Manual) 18L, Monocytes % (Manual) 3, Eosinophils % ( Manual) 7H, Basophils % (Manual) 0, Band Neutrophils 0, Nucleated Red Blood Cells 1, Platelet Estimate Adequate, Platelet Morphology Normal, Hypochromasia 2 +, Anisocytosis 1+, Sodium Level 146#H, Potassium Level 4.0, Chloride Level 106 , Carbon Dioxide Level 36H, Anion Gap 4L, Blood Urea Nitrogen 39H, Creatinine 1.9H, Estimat Glomerular Filtration Rate 34.5, Glucose Level 166H, Calcium Level 8.6 09/06/19 11:01: POC Whole Blood Glucose 151H Height (Feet): 5 Height (Inches): 10.00 Weight (Pounds): 168 Objective Debilitated AA man NCAT (+) trach coarse BS RR abd distended, anasarca, (+) GT ext (+) edema contracted Ronny Mustafa MD Sep 06, 2019 12:05
--- NOTE | 2019-09-06 12:15 | NUR ---
CASE MANAGEMENT: REVIEW SI: KLEBSIELLA, PSEUDOMONAS, PROVIDENCIA PNA . ESRD on HD T 98.1 HR 75 RR 15 BP 115/49 SAT 100% MECH VENT FIO2 24 WBC 18.0 H/H 8.1/26.1 NA 146 BUN 39 CR 1.9 IS: GENTAMICIN IV X1 ZOSYN IV Q8HR EPOETIN SUBQ QMWF HEPARIN IV PRN HD HD NEEDED STEP DOWN UNIT STATUS DCP: PATIENT UNABLE TO RETURN TO PREVIOUS SUBACUTE DUE TO NECESSITY FOR HD. PREVIOUS SUBACUTE UNABLE TO ACCOMMODATE HD SUBACUTE PATIENT.
--- NOTE | 2019-09-06 12:42 | NUR ---
*-* INSURANCE *-* UPDATED CLINICALS AND REVIEWS HAVE BEEN FAXED TO: ELIN ([employer] [facility]) REF# [id number] RIC:HARPER P:[phone] F:[phone] PATIENT'S STAY CONTINUES TO BE AUTHORIZED
[2019-09-06] MEDS ORDERED: GENTAMICIN IVPB ONE (13:00)
[2019-09-06] MEDS ORDERED: NS IVPB ONE (13:00)
--- NOTE | 2019-09-06 13:00 | NUR ---
CASE MANAGEMENT: DCP CM REQUESTED PATIENT TRANSFER TO [facility], PER CM [facility] [phone] [facility] [phone] HOUSE SUP JERONIMO STATES NO BEDS AVAILABLE CM REQUEST TO SPEAK WITH [facility] CM. PER HARPER CHEUNG IS AT FULL RISK CM REQUEST PATIENT BE TRANSFERRED TO [facility]. PER HARPER CABA STATED THEY DO NOT HAVE A CONTRACT WITH ANY [facility] FACILITIES. CM REQUEST TO SPEAK WITH HER ETL SOFTWARE ENGINEER. HARPER PROVIDED ME WITH ETL SOFTWARE ENGINEER ANA PAULA'S NUMBER [phone] LEFT MESSAGE
--- NOTE | 2019-09-06 13:22 | Nephrology Progress Note ---
Assessment/Plan Plan Sepsis - IV Abx Established ESRD - HD now TTS. Patient on HD. Subjective Subjective Obtunded. Objective Objective Last 24 Hour Vital Signs Date Time Temp Pulse Resp B/P (MAP) Pulse Ox O2 Delivery O2 Flow Rate FiO2 09/06/19 12:00 24 09/06/19 12:00 69 09/06/19 12:00 Mechanical Ventilator 09/06/19 12:00 98.1 82 22 148/73 (98) 100 09/06/19 11:17 72 19 24 09/06/19 09:04 71 15 24 09/06/19 08:10 110/52 09/06/19 08:09 75 111/52 09/06/19 08:00 Mechanical Ventilator 09/06/19 08:00 77 09/06/19 08:00 24 09/06/19 08:00 98.1 75 16 111/52 (71) 100 09/06/19 07:00 75 15 24 09/06/19 04:00 98.2 75 15 126/81 (96) 100 09/06/19 04:00 24 09/06/19 04:00 Mechanical Ventilator 09/06/19 03:56 75 09/06/19 02:57 75 18 24 09/06/19 01:00 75 16 24 09/06/19 00:00 98.2 76 16 115/49 (71) 100 09/06/19 00:00 Mechanical Ventilator 09/06/19 00:00 75 09/06/19 00:00 24 09/05/19 23:14 75 16 24 09/05/19 21:08 71 19 24 09/05/19 20:17 86 133/55 09/05/19 20:00 98.1 82 18 130/25 (60) 100 09/05/19 20:00 24 09/05/19 20:00 Mechanical Ventilator 09/05/19 19:20 82 09/05/19 19:08 85 18 24 09/05/19 17:22 86 24 24 09/05/19 16:00 81 09/05/19 16:00 Mechanical Ventilator 09/05/19 16:00 97.9 85 19 121/56 (77) 100 09/05/19 16:00 24 09/05/19 15:15 80 22 24 Intake and Output 09/05/19 09/06/19 19:00 07:00 Intake Total 705 ml 755 ml Output Total 2025 ml 0 ml Balance -1320 ml 755 ml Free Water 50 ml IV Total 55 ml 55 ml Tube Feeding 600 ml 650 ml Other 50 ml Stool Total 25 ml 0 ml Hemodialysis UF 2000 ml # Voids 1 Laboratory Tests 09/05/19 18:00: POC Whole Blood Glucose 180H 09/06/19 03:45: White Blood Count 18.0H, Red Blood Count 3.09L, Hemoglobin 8.1L, Hematocrit 26.1L, Mean Corpuscular Volume 85, Mean Corpuscular Hemoglobin 26.4L, Mean Corpuscular Hemoglobin Concent 31.2L, Red Cell Distribution Width 17.4H, Platelet Count 541H, Mean Platelet Volume 6.0L, Neutrophils (%) (Auto) , Lymphocytes (%) (Auto) , Monocytes (%) (Auto) , Eosinophils (%) (Auto) , Basophils (%) (Auto) , Differential Total Cells Counted 100, Neutrophils % ( Manual) 72, Lymphocytes % (Manual) 18L, Monocytes % (Manual) 3, Eosinophils % ( Manual) 7H, Basophils % (Manual) 0, Band Neutrophils 0, Nucleated Red Blood Cells 1, Platelet Estimate Adequate, Platelet Morphology Normal, Hypochromasia 2 +, Anisocytosis 1+, Sodium Level 146#H, Potassium Level 4.0, Chloride Level 106 , Carbon Dioxide Level 36H, Anion Gap 4L, Blood Urea Nitrogen 39H, Creatinine 1.9H, Estimat Glomerular Filtration Rate 34.5, Glucose Level 166H, Calcium Level 8.6 09/06/19 11:01: POC Whole Blood Glucose 151H Height (Feet): 5 Height (Inches): 10.00 Weight (Pounds): 168 Objective CV RR Trach clean Lungs CTA New Perma Cath RIJ. Old Femoral Rancho still in Rt. Groin! Abd SNT. BS + E No CCE Erica Pichardo MD Sep 06, 2019 13:22
--- NOTE | 2019-09-06 13:29 | NUR ---
NURSE NOTES: Called [facility] nephrology tele : [phone] spoke with Hue and informed patient schedule for HD tomorrow 09/07/[address] Pichardo.
--- NOTE | 2019-09-06 13:31 | NUR ---
NURSE NOTES: Dr. Pichardo at the nursing station, made aware of Na level 146 today. No new order received. Will continue to monitor.
--- NOTE | 2019-09-06 13:48 | Surgery Progress Note ---
Surgery Progress Note Subjective Procedure Performed Right femoral temporary hemodialysis catheter removal Additional Comments juan cute events labs noted exam stable Objective Last 24 Hour Vital Signs Date Time Temp Pulse Resp B/P (MAP) Pulse Ox O2 Delivery O2 Flow Rate FiO2 09/06/19 12:00 24 09/06/19 12:00 69 09/06/19 12:00 Mechanical Ventilator 09/06/19 12:00 98.1 82 22 148/73 (98) 100 09/06/19 11:17 72 19 24 09/06/19 09:04 71 15 24 09/06/19 08:10 110/52 09/06/19 08:09 75 111/52 09/06/19 08:00 Mechanical Ventilator 09/06/19 08:00 77 09/06/19 08:00 24 09/06/19 08:00 98.1 75 16 111/52 (71) 100 09/06/19 07:00 75 15 24 09/06/19 04:00 98.2 75 15 126/81 (96) 100 09/06/19 04:00 24 09/06/19 04:00 Mechanical Ventilator 09/06/19 03:56 75 09/06/19 02:57 75 18 24 09/06/19 01:00 75 16 24 09/06/19 00:00 98.2 76 16 115/49 (71) 100 09/06/19 00:00 Mechanical Ventilator 09/06/19 00:00 75 09/06/19 00:00 24 09/05/19 23:14 75 16 24 09/05/19 21:08 71 19 24 09/05/19 20:17 86 133/55 09/05/19 20:00 98.1 82 18 130/25 (60) 100 09/05/19 20:00 24 09/05/19 20:00 Mechanical Ventilator 09/05/19 19:20 82 09/05/19 19:08 85 18 24 09/05/19 17:22 86 24 24 09/05/19 16:00 81 09/05/19 16:00 Mechanical Ventilator 09/05/19 16:00 97.9 85 19 121/56 (77) 100 09/05/19 16:00 24 09/05/19 15:15 80 22 24 I&O Intake and Output 09/05/19 09/06/19 19:00 07:00 Intake Total 705 ml 755 ml Output Total 2025 ml 0 ml Balance -1320 ml 755 ml Free Water 50 ml IV Total 55 ml 55 ml Tube Feeding 600 ml 650 ml Other 50 ml Stool Total 25 ml 0 ml Hemodialysis UF 2000 ml # Voids 1 Cardiovascular: RSR Respiratory: decreased breath sounds Abdomen: soft, present bowel sounds Extremities: edema, no cyanosis Laboratory Tests Test 09/05/19 18:00 09/06/19 03:45 09/06/19 11:01 POC Whole Blood Glucose 180 MG/DL (74-106) H 151 MG/DL (74-106) H White Blood Count 18.0 K/UL (4.8-10.8) H Red Blood Count 3.09 M/UL (4.70-6.10) L Hemoglobin 8.1 G/DL (14.2-18.0) L Hematocrit 26.1 % (42.0-52.0) L Mean Corpuscular Volume 85 FL (80-99) Mean Corpuscular Hemoglobin 26.4 PG (27.0-31.0) L Mean Corpuscular Hemoglobin Concent 31.2 G/DL (32.0-36.0) L Red Cell Distribution Width 17.4 % (11.6-14.8) H Platelet Count 541 K/UL (150-450) H Mean Platelet Volume 6.0 FL (6.5-10.1) L Neutrophils (%) (Auto) % (45.0-75.0) Lymphocytes (%) (Auto) % (20.0-45.0) Monocytes (%) (Auto) % (1.0-10.0) Eosinophils (%) (Auto) % (0.0-3.0) Basophils (%) (Auto) % (0.0-2.0) Differential Total Cells Counted 100 Neutrophils % (Manual) 72 % (45-75) Lymphocytes % (Manual) 18 % (20-45) L Monocytes % (Manual) 3 % (1-10) Eosinophils % (Manual) 7 % (0-3) H Basophils % (Manual) 0 % (0-2) Band Neutrophils 0 % (0-8) Nucleated Red Blood Cells 1 /100 WBC Platelet Estimate Adequate Platelet Morphology Normal Hypochromasia 2+ Anisocytosis 1+ Sodium Level 146 MMOL/L (136-145) #H Potassium Level 4.0 MMOL/L (3.5-5.1) Chloride Level 106 MMOL/L (98-107) Carbon Dioxide Level 36 MMOL/L (21-32) H Anion Gap 4 mmol/L (5-15) L Blood Urea Nitrogen 39 mg/dL (7-18) H Creatinine 1.9 MG/DL (0.55-1.30) H Estimat Glomerular Filtration Rate 34.5 mL/min (>60) Glucose Level 166 MG/DL (74-106) H Calcium Level 8.6 MG/DL (8.5-10.1) Plan Problems: (1) Anemia (2) Hyponatremia (3) Leukocytosis Assessment & Plan: Tracheostomy, left chest pacemaker are again demonstrated. There is bilateral interstitial and airspace disease and bilateral pleural fluid again demonstrated. This appears more severe than on the prior study. Bilateral interstitial and airspace infiltrates versus edema. Bilateral pleural effusions Leukocytosis, anemia, tachycardia, abnormal labs. Wound evaluated and likely etiology of patient's sepsis. Leukocytosis etiology work-up antibiotics per infectious disease Appreciate nephrology input transfuse with dialysis We will follow with recommendations thank you allowing participation's care plan HD access temp HD discussed with medical teams line okay HD as per renal persistent leukocytosis flow cyto noted improving trending down right fem line removed (4) Ventilator dependent (5) Right lower lobe pneumonia (6) Hypokalemia (7) Hyperkalemia (8) Anasarca (9) Decubitus skin ulcer Assessment & Plan: pt presented on admission with generalized edemae.Skin assessed under tracheostomy and no areas of concerns noted. GT Insertion is marginally erythematous with small amt slough at stoma. Unstageable Pressure Injury R elbow. Base of wound is 100% yellow slough, Borders are erythematous. Wound oozing small amt haemopurulent exudate.Darker skin tone without elevation in skin temp or erythema periwound. Pt's penis and scrotum are grossly edematous and enlarged and weeping serous exudate from numerous sites both from penis and scrotum. Two small open wounds noted at base of at base of shaft of penis ,and contreras aspect of scrotum. Both wounds oozing large amt sanguineous and serosanguineous exudate. Multiple open wounds with Biofilm at base of each wounds noted to contreras/lateral,inferior and posterior aspects of scrotum. These wounds noted to be oozing moderate amts of serosanguineous exudate. Hypertrophic scar with scattered areas of hyperpigmentation noted to Sacrum. DTPI noted to L Buttocks (L)7cm x (W)9cm. Base of wound is purple and indurated.Darker skin tone without erythema, induration or fluctuance R and L ischial tuberosities. Both heels are boggy with non-blanchable erythema. Tx.Plan: Cleanse wound R elbow with Saline. Apply TheraHoney, Apply Moisture Barrier Paste periwound. Cover with Optifoam drsg.Change Daily and prn. Wash GT site with soap and water.Pat dry. Apply Zinc Oxide Paste to GT site Daily. Leave Open to Air. Apply Zinc Oxide Paste to entire Scrotum, Place ABD pads to R and L lateral, and posterior aspects of scrotum TWICE daily. Apply Cavilon Skin Barrier to malleoli and both Heels. Cover each site with Optifoam drsgs. Change every 7 days and prn. Reposition at least every 2hours or as tolerated. Off-load heels with Pillows. APM/BECCA Mattress overlay. (10) Malnutrition Assessment & Plan: DAILY ESTIMATED NEEDS: Needs based on Renal, critical care, wound/ 61kg 22-30 kcals/kg [id number] total kcals 1.25-2 g protein/kg 76-122 g total protein Fluid per MD, now on HD NUTRITION DIAGNOSIS: * Swallowing difficulty R/T respiratory failure, dysphagia as evidenced by trach/vent dep, PEG dep * Increased kcal/prot needs R/T wound healing as evidenced by admitted w/ multiple pressure injuries including full thickness wounds at junction of Shaft of penis, dorsal scrotum, R elbow, and DTPI @ L buttocks. CURRENT TF:Nepro @ 45ml/hr x 24 hrs ENTERAL NUTRITION RECOMMENDATIONS: NEPRO @ 40ml/hr x 24 hrs to provide 960ml, 1728kcal , 78g prot, 697ml free water * Decrease goal rate to 40ml/hr x 24hrs -> meets 100% est kcal/prot needs * HOB over 30 degrees/ water flush per MD WITH CONTINUED DIARRHEA AND CONSISTENTLY LOW LYTES, consider TF change to carb controlled, elemental TF Vital AF 1.2-> rec goal rate of 55ml/hr x 24 hrs to provide 1320ml, 1584kcal, 99g prot, 1070ml free water, 2228mg K and 1114mg phos ADDITIONAL RECOMMENDATIONS: * Per SNF: HT=63" SP=030 lbs (Vs EMR wt of 166lbs) -> obtain re-calibrated bedscale wt, rec daily wt monitoring * Wound healing: continue Nephrovite x 1 and Garo BID Vit C dosing per Nephro * Monitor renal fxn and lytes-> pt now on HD rec checking f/up phos (0.9* on 08/21) * Add probiotics to help alleviate diarrhea (11) Uremia (12) CKD (chronic kidney disease) stage 5, GFR less than 15 ml/min (13) Colon distention Assessment & Plan: discussed with GI likely functional as having lots of loose bm rectal tube kub f/u s/p colonoscopy - findings reviewed with GI Marked distention of the sigmoid colon. 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 No evidence of bowel wall thickening or pneumatosis 12 mm focus of contrast enhancement in the right pectineus muscle. While nonspecific in appearance, appearance raises concern for a possible pseudoaneurysm. Ill- defined thickening of the pectus medius muscle could indicate some intramuscular hemorrhage. The above findings were phoned to Dr. Urias at the time of interpretation Large bilateral pleural effusions Hazy pulmonary parenchymal opacities as well as dense consolidative opacities most likely represent pulmonary edema, but could represent pneumonia Evidence of anasarca elsewhere, with generalized edema of the subcutaneous fat Bladder wall thickening, raises concern for cystitis. Avalos catheter in place Colonic diverticulosis. No evidence of diverticulitis. Tracheostomy Pacemaker Gastrostomy Jonathan Urias Sep 06, 2019 13:48
[2019-09-06 16:00] VITALS: BP 154/79
--- NOTE | 2019-09-06 17:49 | NUR ---
CASE MANAGEMENT: DCP PER ELIJAH [facility] CAN NOW ACCEPT PATIENTS FOR ADMISSION [phone] PH / FAXED [phone]. UPDATED REFERRAL FAXED [facility] FOLLOWED UP ON REFERRAL, SPOKE WITH REMY SHE STATED DON IS REVIEWING THE CLINICAL DOCUMENTATION. SHE REQUESTED COPY OF VITAL SIGNS FOR 72HRS, PERMA-CATH PLACEMENT, WOUND CARE NOTES AND REMOVAL OF RECTAL TUBE PRIOR TO ADMISSION. --WOUND CARE NOTES FAXED -- TUNNEL CATH SURGICAL NOTES FAXED --VS x72 HOURS FAXED
--- NOTE | 2019-09-06 19:30 | NUR ---
NURSE NOTES: Received report from Severiano DAVEY. Patient asleep, afebrile and no respiratory distress. V paced on 5 lead cardiac specialist. On [facility] vent P8, ac 16, TV 450, FiO2 24%, peep 5. with right SC permacath intact, asymptomatic.With Left Hand 20g IV line intact, patent and asymptomatic. On Vital AF 1.2 50cc/hr x 20 hrs via GT intact and infusing well. With rectal tube in place intact and draining well. Needs were attended. HOB elevated. Bed rails are up and wheels are locked. Call light within reach. Continue plan of care.
--- NOTE | 2019-09-06 19:31 | NUR ---
HAND-OFF: Report given to TAMICA SIM. Endorsed plan of care.
[2019-09-06 20:00] VITALS: BP 143/66
[2019-09-06] MEDS: Epoetin Alfa-EPBX(ESRD on dialysis)10,000 unit/ml vial SUBQ SCH (20:32)
[2019-09-06] MEDS: Atorvastatin 20mg tab GT SCH (20:32)
[2019-09-06] MEDS: Dyna-Hex 2% Top Sol 2oz TOPIC SCH (20:32)
[2019-09-07] VITALS: BP 146/83
[2019-09-07] MEDS: NovoLOG Insulin Flexpen SUBQ SCH ×5 (00:50→23:37)
[2019-09-07 04:00] VITALS: BP 180/63
[2019-09-07 04:59] LABS: EOSINOPHILS % (AUTO) 5.4 % (0.0-3.0); HEMATOCRIT 28.6 % (42.0-52.0); HEMOGLOBIN 8.7 G/DL (14.2-18.0); LYMPHOCYTES % (AUTO) 16.2 % (20.0-45.0); MEAN CORPUSCULAR VOLUME 85 FL (80-99); MONOCYTES % (AUTO) 7.7 % (1.0-10.0); NEUTROPHILS % (AUTO) 69.7 % (45.0-75.0); PLATELET COUNT 546 K/UL (150-450); RED BLOOD COUNT 3.35 M/UL (4.70-6.10); RED CELL DISTRIBUTION WIDTH 17.6 % (11.6-14.8); WHITE BLOOD COUNT 17.4 K/UL (4.8-10.8)
[2019-09-07 05:16] LABS: ANION GAP 4 mmol/L (5-15); BLOOD UREA NITROGEN 53 mg/dL (7-18); CALCIUM 8.6 MG/DL (8.5-10.1); CARBON DIOXIDE 36 MMOL/L (21-32); CHLORIDE 100 MMOL/L (98-107); CREATININE 2.7 MG/DL (0.55-1.30); SODIUM 139 MMOL/L (136-145)
[2019-09-07] MEDS ORDERED: Heparin 1000 units/ml 1ml Vial INJ PRN (06:00)
[2019-09-07] MEDS ORDERED: Heparin Sod 1000 units/ml 10ml IV PRN (06:00)
--- NOTE | 2019-09-07 07:15 | NUR ---
HAND-OFF: Report given to TAMICA العلي. Pt asleep in bed and stable VS.
--- NOTE | 2019-09-07 07:18 | NUR ---
NURSE NOTES: Received report from TAMICA SIM. Patient in bed resting, no active s/s cardiac, respiratory distress noticed at this time. Patient Obtunded, V paced with HR 72. Endorsed patient schedule for HD today. Trach to vent Portex 8 AC 15 TV 450 Fio2 24% PEEP 5 O2 sat 100%. Right SC Permacath intact, asymptomatic, patent. IV on left hand 22G, asymptomatic, patent, intact. GT feeding running as prescribed rate Vital AF 1.2 @ 50ml/h. Bed in lowest position, side rails upx3, call light within reach, bed alarm on. Will continue to monitor.
[2019-09-07 08:00] VITALS: BP 118/55
[2019-09-07] MEDS: Nephrovite tab (Rena-Vite) GT SCH (08:34)
[2019-09-07] MEDS: Ascorbic Acid 500mg tab GT SCH (08:34)
[2019-09-07] MEDS: Multivitamins W/Minerals 15 ML UDC GT SCH (08:34)
[2019-09-07] MEDS: Zinc Oxide Oint 2oz TOPIC SCH ×2 (08:35→17:37)
[2019-09-07] MEDS: Metoprolol Tartrate 100mg tab GT SCH ×2 (08:35→21:24)
[2019-09-07] MEDS: Minoxidil 2.5mg tab GT SCH (08:35)
[2019-09-07] MEDS: Vitamin D 1000 IU Tab GT SCH (08:35)
--- NOTE | 2019-09-07 09:36 | NUR ---
FORENSIC SCIENCE TECHNICIAN NOTES SPOKE WITH HARPER FROM [facility] [employer], PT HAS BEEN REFERRED TO [facility] FOR IN NETWORK PLACEMENT. PT ALSO REFERRED TO [facility] WAITING FOR CALL BACK FROM ADMISSIONS. PT STAY CONTINUES TO BE AUTHORIZED ON ADMINISTRATIVE DAYS SINCE August. DCP ONGOING.
--- NOTE | 2019-09-07 10:33 | Nephrology Progress Note ---
Assessment/Plan Plan Sepsis - IV Abx Established ESRD - HD now TTS. DW HD RN. Subjective Subjective Obtunded. Objective Objective Last 24 Hour Vital Signs Date Time Temp Pulse Resp B/P (MAP) Pulse Ox O2 Delivery O2 Flow Rate FiO2 09/07/19 09:06 71 17 24 09/07/19 08:35 70 118/55 09/07/19 08:35 118/55 09/07/19 08:00 98.1 70 15 118/55 (76) 100 09/07/19 08:00 Mechanical Ventilator 09/07/19 08:00 24 09/07/19 07:49 69 09/07/19 07:00 68 15 24 09/07/19 04:34 72 16 24 09/07/19 04:00 Mechanical Ventilator 09/07/19 04:00 24 09/07/19 04:00 98.2 71 18 180/63 (102) 100 09/07/19 03:51 180/77 09/07/19 03:29 71 09/07/19 03:18 69 16 24 09/07/19 00:39 71 19 24 09/07/19 00:00 97.7 71 18 146/83 (104) 100 09/07/19 00:00 Mechanical Ventilator 09/06/19 23:27 69 09/06/19 22:49 69 18 24 09/06/19 20:34 74 16 24 09/06/19 20:33 74 143/66 09/06/19 20:00 Mechanical Ventilator 09/06/19 20:00 97.9 73 18 143/66 (91) 100 09/06/19 20:00 24 09/06/19 19:05 72 09/06/19 19:02 74 16 24 09/06/19 17:16 75 16 24 09/06/19 16:00 Mechanical Ventilator 09/06/19 16:00 97.7 75 18 154/79 (104) 100 09/06/19 16:00 72 09/06/19 16:00 24 09/06/19 15:15 72 15 24 09/06/19 13:15 72 17 24 09/06/19 12:00 24 09/06/19 12:00 69 09/06/19 12:00 Mechanical Ventilator 09/06/19 12:00 98.1 82 22 148/73 (98) 100 09/06/19 11:17 72 19 24 Intake and Output 09/06/19 09/07/19 19:00 07:00 Intake Total 780 ml 1040 ml Output Total 40 ml Balance 740 ml 1040 ml Free Water 60 ml 390 ml IV Total 170 ml Tube Feeding 550 ml 650 ml Stool Total 40 ml Laboratory Tests 09/06/19 11:01: POC Whole Blood Glucose 151H 09/06/19 17:03: POC Whole Blood Glucose 154H 09/06/19 23:16: POC Whole Blood Glucose 168H 09/07/19 03:42: White Blood Count 17.4H, Red Blood Count 3.35L, Hemoglobin 8.7L, Hematocrit 28.6L, Mean Corpuscular Volume 85, Mean Corpuscular Hemoglobin 25.9L, Mean Corpuscular Hemoglobin Concent 30.3L, Red Cell Distribution Width 17.6H, Platelet Count 546H, Mean Platelet Volume 6.0L, Neutrophils (%) (Auto) 69.7, Lymphocytes (%) (Auto) 16.2L, Monocytes (%) (Auto) 7.7, Eosinophils (%) (Auto) 5.4H, Basophils (%) (Auto) 1.0, Sodium Level 139, Potassium Level 4.0, Chloride Level 100, Carbon Dioxide Level 36H, Anion Gap 4L, Blood Urea Nitrogen 53H, Creatinine 2.7H, Estimat Glomerular Filtration Rate 23.0, Glucose Level 148H, Calcium Level 8.6 09/07/19 05:14: POC Whole Blood Glucose 156H Height (Feet): 5 Height (Inches): 10.00 Weight (Pounds): 168 Objective CV RR Trach clean Lungs CTA New Perma Cath RIJ. Old Femoral Rancho still in Rt. Groin! Abd SNT. BS + E No CCE Erica Pichardo MD Sep 07, 2019 10:33
--- NOTE | 2019-09-07 10:50 | General Progress Note ---
Assessment/Plan Assessment/Plan: IMPRESSION: 1. anemia. 2. GI bleed. 3. Leukocytosis. 4. Probable sepsis. + BCX 5. Acute on chronic renal failure. 6. Hyponatremia. 7. Severe protein-calorie malnutrition. 8. Significantly elevated C-reactive protein concerning for infectious etiology. 9. Tracheostomy, G-tube. 10. Ventilator dependence. 11. anasarca with bilateral pleural effusion 12. Hematuria PLAN needs placement care noted on vent surgical follow up monitor labs and adjust RX rate control ID follow up monitor renal function: HD prognosis poor impression, plan, and exam edited and reviewed in detail care discussed with RN Subjective Allergies: Coded Allergies: No Known Allergies (Unverified , 06/10/19) Subjective remains ill on vent on HD Objective Last 24 Hour Vital Signs Date Time Temp Pulse Resp B/P (MAP) Pulse Ox O2 Delivery O2 Flow Rate FiO2 09/07/19 09:06 71 17 24 09/07/19 08:35 70 118/55 09/07/19 08:35 118/55 09/07/19 08:00 98.1 70 15 118/55 (76) 100 09/07/19 08:00 Mechanical Ventilator 09/07/19 08:00 24 09/07/19 07:49 69 09/07/19 07:00 68 15 24 09/07/19 04:34 72 16 24 09/07/19 04:00 Mechanical Ventilator 09/07/19 04:00 24 09/07/19 04:00 98.2 71 18 180/63 (102) 100 09/07/19 03:51 180/77 09/07/19 03:29 71 09/07/19 03:18 69 16 24 09/07/19 00:39 71 19 24 09/07/19 00:00 97.7 71 18 146/83 (104) 100 09/07/19 00:00 Mechanical Ventilator 09/06/19 23:27 69 09/06/19 22:49 69 18 24 09/06/19 20:34 74 16 24 09/06/19 20:33 74 143/66 09/06/19 20:00 Mechanical Ventilator 09/06/19 20:00 97.9 73 18 143/66 (91) 100 09/06/19 20:00 24 09/06/19 19:05 72 09/06/19 19:02 74 16 24 09/06/19 17:16 75 16 24 09/06/19 16:00 Mechanical Ventilator 09/06/19 16:00 97.7 75 18 154/79 (104) 100 09/06/19 16:00 72 09/06/19 16:00 24 09/06/19 15:15 72 15 24 09/06/19 13:15 72 17 24 09/06/19 12:00 24 09/06/19 12:00 69 09/06/19 12:00 Mechanical Ventilator 09/06/19 12:00 98.1 82 22 148/73 (98) 100 09/06/19 11:17 72 19 24 Intake and Output 09/06/19 09/07/19 19:00 07:00 Intake Total 780 ml 1040 ml Output Total 40 ml Balance 740 ml 1040 ml Free Water 60 ml 390 ml IV Total 170 ml Tube Feeding 550 ml 650 ml Stool Total 40 ml Laboratory Tests 09/06/19 11:01: POC Whole Blood Glucose 151H 09/06/19 17:03: POC Whole Blood Glucose 154H 09/06/19 23:16: POC Whole Blood Glucose 168H 09/07/19 03:42: White Blood Count 17.4H, Red Blood Count 3.35L, Hemoglobin 8.7L, Hematocrit 28.6L, Mean Corpuscular Volume 85, Mean Corpuscular Hemoglobin 25.9L, Mean Corpuscular Hemoglobin Concent 30.3L, Red Cell Distribution Width 17.6H, Platelet Count 546H, Mean Platelet Volume 6.0L, Neutrophils (%) (Auto) 69.7, Lymphocytes (%) (Auto) 16.2L, Monocytes (%) (Auto) 7.7, Eosinophils (%) (Auto) 5.4H, Basophils (%) (Auto) 1.0, Sodium Level 139, Potassium Level 4.0, Chloride Level 100, Carbon Dioxide Level 36H, Anion Gap 4L, Blood Urea Nitrogen 53H, Creatinine 2.7H, Estimat Glomerular Filtration Rate 23.0, Glucose Level 148H, Calcium Level 8.6 09/07/19 05:14: POC Whole Blood Glucose 156H Height (Feet): 5 Height (Inches): 10.00 Weight (Pounds): 168 Objective GENERAL: Ill-appearing male, chronically debilitated. HEENT: Tracheostomy in midline. Questionable fullness in the submandibular region. LUNGS: Coarse breath sounds. reduced breath sounds CARDIAC: S1, S2. Regular rate and rhythm. ABDOMEN: Soft. G-tube. EXTREMITIES: With noted edema. NEUROLOGICAL: Poorly responsive, weak diffusely. Kain Ramirez MD Sep 07, 2019 10:50
--- NOTE | 2019-09-07 10:54 | Infectious Diseases Prog Note ---
Assessment/Plan Assessment/Plan A: 1. Pneumonia with Klebsiella, pseudomonas & Providencia COVID19 X2 : negative 2. Renal failure, ESRD 3. Leukocytosis improving 4. Respiratory failure, Ventilator dependent 5. Anemia 6. Anasarca 7. 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 Klebsiella catheter infection s/p removal PLAN: 1. Continue Gentamicin Subjective ROS Limited/Unobtainable: Yes Constitutional: Denies: fever Cardiovascular: Reports: other - on bedside HD Allergies: Coded Allergies: No Known Allergies (Unverified , 06/10/19) Objective Last 24 Hour Vital Signs Date Time Temp Pulse Resp B/P (MAP) Pulse Ox O2 Delivery O2 Flow Rate FiO2 09/07/19 09:06 71 17 24 09/07/19 08:35 70 118/55 09/07/19 08:35 118/55 09/07/19 08:00 98.1 70 15 118/55 (76) 100 09/07/19 08:00 Mechanical Ventilator 09/07/19 08:00 24 09/07/19 07:49 69 09/07/19 07:00 68 15 24 09/07/19 04:34 72 16 24 09/07/19 04:00 Mechanical Ventilator 09/07/19 04:00 24 09/07/19 04:00 98.2 71 18 180/63 (102) 100 09/07/19 03:51 180/77 09/07/19 03:29 71 09/07/19 03:18 69 16 24 09/07/19 00:39 71 19 24 09/07/19 00:00 97.7 71 18 146/83 (104) 100 09/07/19 00:00 Mechanical Ventilator 09/06/19 23:27 69 09/06/19 22:49 69 18 24 09/06/19 20:34 74 16 24 09/06/19 20:33 74 143/66 09/06/19 20:00 Mechanical Ventilator 09/06/19 20:00 97.9 73 18 143/66 (91) 100 09/06/19 20:00 24 09/06/19 19:05 72 09/06/19 19:02 74 16 24 09/06/19 17:16 75 16 24 09/06/19 16:00 Mechanical Ventilator 09/06/19 16:00 97.7 75 18 154/79 (104) 100 09/06/19 16:00 72 09/06/19 16:00 24 09/06/19 15:15 72 15 24 09/06/19 13:15 72 17 24 09/06/19 12:00 24 09/06/19 12:00 69 09/06/19 12:00 Mechanical Ventilator 09/06/19 12:00 98.1 82 22 148/73 (98) 100 09/06/19 11:17 72 19 24 Height (Feet): 5 Height (Inches): 10.00 Weight (Pounds): 168 HEENT: mucous membranes moist, status post trach Respiratory/Chest: lungs clear, other - on ventilator Cardiovascular: normal rate, other - R Permacath Abdomen: soft, non tender, other - GT in place Extremities: other - decreased edema Neurologic/Psychiatric: aphasia Microbiology Date/Time Source Procedure Growth Status 09/04/19 11:20 Stool Clostridium difficile Toxin Assay - Final Complete Laboratory Tests Test 09/06/19 11:01 09/06/19 17:03 09/06/19 23:16 09/07/19 03:42 POC Whole Blood Glucose 151 MG/DL (74-106) H 154 MG/DL (74-106) H 168 MG/DL (74-106) H White Blood Count 17.4 K/UL (4.8-10.8) H Red Blood Count 3.35 M/UL (4.70-6.10) L Hemoglobin 8.7 G/DL (14.2-18.0) L Hematocrit 28.6 % (42.0-52.0) L Mean Corpuscular Volume 85 FL (80-99) Mean Corpuscular Hemoglobin 25.9 PG (27.0-31.0) L Mean Corpuscular Hemoglobin Concent 30.3 G/DL (32.0-36.0) L Red Cell Distribution Width 17.6 % (11.6-14.8) H Platelet Count 546 K/UL (150-450) H Mean Platelet Volume 6.0 FL (6.5-10.1) L Neutrophils (%) (Auto) 69.7 % (45.0-75.0) Lymphocytes (%) (Auto) 16.2 % (20.0-45.0) L Monocytes (%) (Auto) 7.7 % (1.0-10.0) Eosinophils (%) (Auto) 5.4 % (0.0-3.0) H Basophils (%) (Auto) 1.0 % (0.0-2.0) Sodium Level 139 MMOL/L (136-145) Potassium Level 4.0 MMOL/L (3.5-5.1) Chloride Level 100 MMOL/L (98-107) Carbon Dioxide Level 36 MMOL/L (21-32) H Anion Gap 4 mmol/L (5-15) L Blood Urea Nitrogen 53 mg/dL (7-18) H Creatinine 2.7 MG/DL (0.55-1.30) H Estimat Glomerular Filtration Rate 23.0 mL/min (>60) Glucose Level 148 MG/DL (74-106) H Calcium Level 8.6 MG/DL (8.5-10.1) Test 09/07/19 05:14 POC Whole Blood Glucose 156 MG/DL (74-106) H Current Medications Medications (Trade) Dose Ordered Sig/Leonel Route PRN Reason Start Time Stop Time Status Last Admin Dose Admin Acetaminophen (Tylenol) 650 mg Q4H PRN GT Mild Pain / fever 08/09/19 05:30 09/08/19 05:29 08/26/19 21:44 Al Hydroxide/Mg Hydroxide (Mylanta) 30 ml FOUR TIMES A DAY PRN GT constipation 08/09/19 06:00 09/08/19 05:29 Ascorbic Acid (Vitamin C) 500 mg DAILY GT 08/09/19 09:00 09/08/19 08:59 09/07/19 08:34 Atorvastatin Calcium (Lipitor) 40 mg BEDTIME GT 08/09/19 21:00 11/07/19 20:59 09/06/19 20:32 Chlorhexidine Gluconate (Felipa-Hex 2%) 1 applic DAILY@1999 TOPIC 08/15/19 20:00 11/13/19 19:59 09/06/19 20:32 Clonidine HCl (Catapres Tab) 0.1 mg Q4H PRN GT SBP>150 08/12/19 10:45 11/10/19 06:44 09/07/19 03:51 Dextrose (Dextrose 50%) 25 ml Q30M PRN IV Hypoglycemia 08/09/19 07:30 11/07/19 07:29 Dextrose (Dextrose 50%) 50 ml Q30M PRN IV Hypoglycemia 08/09/19 07:30 11/07/19 07:29 Epoetin Andreas (Epoetin Andreas(ESRD on dialysis)) 10,000 unit WED-WED-WED SUBQ 08/18/19 21:00 11/16/19 20:59 09/06/19 20:32 Famotidine (Pepcid) 20 mg DAILY GT 08/30/19 09:00 11/28/19 08:59 09/07/19 08:34 Gentamicin Protocol (Gentamicin pharmacy to dose) 1 ea DAILY PRN MISC PER RX PROTOCOL 09/06/19 11:00 09/12/19 23:59 Heparin Sodium (Porcine) (Heparin Sod 1000 units/ml 10ml) 500 unit ONCE PRN IV HD 09/07/19 06:00 09/07/19 23:59 Heparin Sodium (Porcine) (Heparin) 1,000 unit POSTHD PRN INJ POST HD 09/07/19 06:00 09/07/19 23:59 Insulin Aspart (NovoLOG) Q6HR SUBQ 08/10/19 00:00 11/07/19 11:29 09/07/19 05:18 Loperamide HCl (Imodium) 2 mg Q4H PRN GT Diarrhea 08/09/19 08:00 09/08/19 07:59 09/06/19 02:52 Metoprolol Tartrate (Lopressor) 200 mg Q12HR GT 08/09/19 09:00 11/07/19 08:59 09/06/19 20:33 Minoxidil (Loniten) 5 mg DAILY GT 08/09/19 09:00 11/07/19 08:59 09/04/19 09:21 Multivitamins (Multivitamins W/ Minerals 15ml Liquid) 15 ml DAILY GT 08/09/19 09:00 09/08/19 08:59 09/07/19 08:34 Sodium Chloride 1,000 ml @ 500 mls/hr Q2H PRN IVLG sbp<90 during hd 09/07/19 06:00 09/07/19 23:59 Vitamin B Complex/ Vit C/Folic Acid (Nephrovite) 1 tab DAILY GT 08/09/19 09:00 09/08/19 08:59 09/07/19 08:34 Vitamin D (Vitamin D) 1,000 intlu DAILY GT 08/09/19 09:00 09/08/19 08:59 09/07/19 08:35 Zinc Oxide (Zinc Oxide) 1 applic BID TOPIC 08/10/19 18:00 11/08/19 17:59 09/07/19 08:35 Real De Leon MD Sep 07, 2019 10:54
[2019-09-07 12:00] VITALS: BP 145/70
--- NOTE | 2019-09-07 12:43 | Hematology/Onc Progress Note ---
Assessment/Plan Assessment/Plan Assessment/recs # Leukocytosis - with multiple infections, VRE UTI, flow is negative --> wbc trend 33-->28-->25->23->22->23->24->17.3-->17-->14->16-->15.6-->14-->14- >13->19->18->17 --> on abx, linezolid and zosyn--> zosyn-->off --> + blood cultures with coag neg staph likely contaminated --> as per id recs --> has ordered a flow cytometry (with pathology) --> does show increased nK cell activity --> JOURDAN 2 and bcr-abl labs ordered (these are send outs) --> plt 585-->613-->649-->669->663 # Anemia due to chronic disease/kidney disease as well, gi bleed + occult + noted --> was on iron in the past, now on hold --> has been started on Epogen sq --> as per renal care --> egd done and shows gastritis --> on ppi --> egd showed gastritis, colo recently done --> hgb 9-->8.7-->7.6-->9.2-->8.9-->9.2->9.3-->8.8->9.9-->9.2-->8.1-->8.7 # Respiratory failure --> per pulm, s/p trach --> COVID 19 test negative x 2 # Dysphagia s/p gtube with nepro --> per gi # ESRD with r fem julito --> hd as per renal # Dvt ppx scds Appreciate consultation and dw Rn Subjective Constitutional: Denies: no symptoms, chills, fever, malaise, weakness, other HEENT: Denies: no symptoms, eye pain, blurred vision, tearing, double vision, ear pain, ear discharge, nose pain, nose congestion, throat pain, throat swelling, mouth pain, mouth swelling, other Cardiovascular: Denies: no symptoms, chest pain, edema, irregular heart rate, lightheadedness, palpitations, syncope, other Respiratory: Denies: no symptoms, cough, shortness of breath, SOB with excertion, SOB at rest, sputum, wheezing, other Gastrointestinal/Abdominal: Denies: no symptoms, abdomen distended, abdominal pain, black stools, tarry stools, blood in stool, constipated, diarrhea, difficulty swallowing, nausea, poor appetite, poor fluid intake, rectal bleeding , vomiting, other Genitourinary: Denies: no symptoms, burning, discharge, frequency, flank pain, hematuria, incontinence, pain, urgency, other Neurologic/Psychiatric: Denies: no symptoms, anxiety, depressed, emotional problems, headache, numbness, paresthesia, pre-existing deficit, seizure, tingling, tremors, weakness, other Endocrine: Denies: no symptoms, excessive sweating, flushing, intolerance to cold, intolerance to heat, increased hunger, increased thirst, increased urine, unexplained weight gain, unexplained weight loss, other Allergies: Coded Allergies: No Known Allergies (Unverified , 06/10/19) Subjective 08/15 meds noted, no bleeding, hgb 8.8, wbc 28, path flow pending 08/16 flow pending dw pathologist, results pending, wbc 25, hgb 9 08/17 labs reviewed, meds reviewed, meds noted, no night sweats 08/19 remains obtunded, on vent/trach, no bleeding wbc 21.7 08/20 labs have been reviewed, no bleeding, wbc still elev, path reviewed 08/21 labs are noted, no bleeding, on vent, wbc better 08/22 labs noted, no bleeding, meds reviewed, wbc 24 hgb 7.6 08/23 vent, off abx, c diff negative, h/h stable 08/24 labs reviewed, on abx, wbc 17, hgb 8.9, no hemolysis 08/26 reviewed flow and is negative for leukemia, matt rn 08/27 meds reviewed, no night sweats, matt rn, no major bleeding 08/28 meds reivewed, labs noted 08/29 wbc is stable, approx 15, hgb 8.8, no hemolysis 08/30 labs are noted, is for colo today, hgb 9.9 08/31 right fem julito in place, unchanged, hgb 9.2, gi aware 09/01 labs noted, hgb 8.8, plt >600, no bleeding 09/02 labs noted, no bleeding, with elev wbc still, no new changes 09/03 meds are noted, no bleeding, labs reviewed hgb 8.6 09/04 no major events, hd as per renal, abx, no bleeding hgb low 09/05 labs are noted, no bleeding, meds have been reviewed 09/06 no new labs no hemolysis, cbc is noted, no bleeding Objective Objective Current Medications Medications (Trade) Dose Ordered Sig/Leonel Route PRN Reason Start Time Stop Time Status Last Admin Dose Admin Acetaminophen (Tylenol) 650 mg Q4H PRN GT Mild Pain / fever 08/09/19 05:30 09/08/19 05:29 08/26/19 21:44 Al Hydroxide/Mg Hydroxide (Mylanta) 30 ml FOUR TIMES A DAY PRN GT constipation 08/09/19 06:00 09/08/19 05:29 Ascorbic Acid (Vitamin C) 500 mg DAILY GT 08/09/19 09:00 09/08/19 08:59 09/07/19 08:34 Atorvastatin Calcium (Lipitor) 40 mg BEDTIME GT 08/09/19 21:00 11/07/19 20:59 09/06/19 20:32 Chlorhexidine Gluconate (Felipa-Hex 2%) 1 applic DAILY@2000 TOPIC 08/15/19 20:00 11/13/19 19:59 09/06/19 20:32 Clonidine HCl (Catapres Tab) 0.1 mg Q4H PRN GT SBP>150 08/12/19 10:45 11/10/19 06:44 09/07/19 03:51 Dextrose (Dextrose 50%) 25 ml Q30M PRN IV Hypoglycemia 08/09/19 07:30 11/07/19 07:29 Dextrose (Dextrose 50%) 50 ml Q30M PRN IV Hypoglycemia 08/09/19 07:30 11/07/19 07:29 Epoetin Andreas (Epoetin Andreas(ESRD on dialysis)) 10,000 unit WED-WED-WED SUBQ 08/18/19 21:00 11/16/19 20:59 09/06/19 20:32 Famotidine (Pepcid) 20 mg DAILY GT 08/30/19 09:00 11/28/19 08:59 09/07/19 08:34 Gentamicin Protocol (Gentamicin pharmacy to dose) 1 ea DAILY PRN MISC PER RX PROTOCOL 09/06/19 11:00 09/12/19 23:59 Heparin Sodium (Porcine) (Heparin Sod 1000 units/ml 10ml) 500 unit ONCE PRN IV HD 09/07/19 06:00 09/07/19 23:59 09/07/19 11:23 Heparin Sodium (Porcine) (Heparin) 1,000 unit POSTHD PRN INJ POST HD 09/07/19 06:00 09/07/19 23:59 Insulin Aspart (NovoLOG) Q6HR SUBQ 08/10/19 00:00 11/07/19 11:29 09/07/19 11:44 Loperamide HCl (Imodium) 2 mg Q4H PRN GT Diarrhea 08/09/19 08:00 09/08/19 07:59 09/06/19 02:52 Metoprolol Tartrate (Lopressor) 200 mg Q12HR GT 08/09/19 09:00 11/07/19 08:59 09/06/19 20:33 Minoxidil (Loniten) 5 mg DAILY GT 08/09/19 09:00 11/07/19 08:59 09/04/19 09:21 Multivitamins (Multivitamins W/ Minerals 15ml Liquid) 15 ml DAILY GT 08/09/19 09:00 09/08/19 08:59 09/07/19 08:34 Sodium Chloride 1,000 ml @ 500 mls/hr Q2H PRN IVLG sbp<90 during hd 09/07/19 06:00 09/07/19 23:59 Vitamin B Complex/ Vit C/Folic Acid (Nephrovite) 1 tab DAILY GT 08/09/19 09:00 09/08/19 08:59 09/07/19 08:34 Vitamin D (Vitamin D) 1,000 intlu DAILY GT 08/09/19 09:00 09/08/19 08:59 09/07/19 08:35 Zinc Oxide (Zinc Oxide) 1 applic BID TOPIC 08/10/19 18:00 11/08/19 17:59 09/07/19 08:35 Last 24 Hour Vital Signs Date Time Temp Pulse Resp B/P (MAP) Pulse Ox O2 Delivery O2 Flow Rate FiO2 09/07/19 11:13 74 17 24 09/07/19 09:06 71 17 24 09/07/19 08:35 70 118/55 09/07/19 08:35 118/55 09/07/19 08:00 98.1 70 15 118/55 (76) 100 09/07/19 08:00 Mechanical Ventilator 09/07/19 08:00 24 09/07/19 07:49 69 09/07/19 07:00 68 15 24 09/07/19 04:34 72 16 24 09/07/19 04:00 Mechanical Ventilator 09/07/19 04:00 24 09/07/19 04:00 98.2 71 18 180/63 (102) 100 09/07/19 03:51 180/77 09/07/19 03:29 71 09/07/19 03:18 69 16 24 09/07/19 00:39 71 19 24 09/07/19 00:00 97.7 71 18 146/83 (104) 100 09/07/19 00:00 Mechanical Ventilator 09/06/19 23:27 69 09/06/19 22:49 69 18 24 09/06/19 20:34 74 16 24 09/06/19 20:33 74 143/66 09/06/19 20:00 Mechanical Ventilator 09/06/19 20:00 97.9 73 18 143/66 (91) 100 09/06/19 20:00 24 09/06/19 19:05 72 09/06/19 19:02 74 16 24 09/06/19 17:16 75 16 24 09/06/19 16:00 Mechanical Ventilator 09/06/19 16:00 97.7 75 18 154/79 (104) 09/06/19 16:00 72 09/06/19 16:00 24 09/06/19 15:15 72 15 24 09/06/19 13:15 72 17 24 09/06/19 12:00 24 09/06/19 12:00 69 09/06/19 12:00 Mechanical Ventilator 09/06/19 12:00 98.1 82 22 148/73 (98) 100 09/06/19 11:17 72 19 24 09/06/19 09:04 71 15 24 09/06/19 08:10 110/52 09/06/19 08:09 75 111/52 09/06/19 08:00 Mechanical Ventilator 09/06/19 08:00 77 09/06/19 08:00 24 09/06/19 08:00 98.1 75 16 111/52 (71) 100 09/06/19 07:00 75 15 24 09/06/19 04:00 98.2 75 15 126/81 (96) 100 09/06/19 04:00 24 09/06/19 04:00 Mechanical Ventilator 09/06/19 03:56 75 09/06/19 02:57 75 18 24 09/06/19 01:00 75 16 24 09/06/19 00:00 98.2 76 16 115/49 (71) 100 09/06/19 00:00 Mechanical Ventilator 09/06/19 00:00 75 09/06/19 00:00 24 09/05/19 23:14 75 16 24 09/05/19 21:08 71 19 24 09/05/19 20:17 86 133/55 09/05/19 20:00 98.1 82 18 130/25 (60) 100 09/05/19 20:00 24 09/05/19 20:00 Mechanical Ventilator 09/05/19 19:20 82 09/05/19 19:08 85 18 24 09/05/19 17:22 86 24 24 09/05/19 16:00 81 09/05/19 16:00 Mechanical Ventilator 09/05/19 16:00 97.9 85 19 121/56 (77) 100 09/05/19 16:00 24 09/05/19 15:15 80 22 24 09/05/19 13:02 72 18 24 Intake and Output 09/06/19 09/07/19 19:00 07:00 Intake Total 780 ml 1040 ml Output Total 40 ml Balance 740 ml 1040 ml Free Water 60 ml 390 ml IV Total 170 ml Tube Feeding 550 ml 650 ml Stool Total 40 ml Labs Test 09/04/19 12:58 09/04/19 17:30 09/05/19 04:00 09/05/19 11:29 POC Whole Blood Glucose 191 MG/DL (74-106) 186 MG/DL (74-106) White Blood Count 18.0 K/UL (4.8-10.8) Red Blood Count 3.18 M/UL (4.70-6.10) Hemoglobin 8.3 G/DL (14.2-18.0) Hematocrit 26.9 % (42.0-52.0) Mean Corpuscular Volume 85 FL (80-99) Mean Corpuscular Hemoglobin 26.1 PG (27.0-31.0) Mean Corpuscular Hemoglobin Concent 30.8 G/DL (32.0-36.0) Red Cell Distribution Width 16.9 % (11.6-14.8) Platelet Count 621 K/UL (150-450) Mean Platelet Volume 6.0 FL (6.5-10.1) Neutrophils (%) (Auto) % (45.0-75.0) Lymphocytes (%) (Auto) % (20.0-45.0) Monocytes (%) (Auto) % (1.0-10.0) Eosinophils (%) (Auto) % (0.0-3.0) Basophils (%) (Auto) % (0.0-2.0) Differential Total Cells Counted 100 Neutrophils % (Manual) 80 % (45-75) Lymphocytes % (Manual) 12 % (20-45) Monocytes % (Manual) 6 % (1-10) Eosinophils % (Manual) 2 % (0-3) Basophils % (Manual) 0 % (0-2) Band Neutrophils 0 % (0-8) Platelet Estimate Increased Platelet Morphology Normal Anisocytosis 1+ Sodium Level 132 MMOL/L (136-145) Potassium Level 3.8 MMOL/L (3.5-5.1) Chloride Level 96 MMOL/L (98-107) Carbon Dioxide Level 34 MMOL/L (21-32) Anion Gap 2 mmol/L (5-15) Blood Urea Nitrogen 65 mg/dL (7-18) Creatinine 2.9 MG/DL (0.55-1.30) Estimat Glomerular Filtration Rate 21.2 mL/min (>60) Glucose Level 161 MG/DL (74-106) Calcium Level 8.8 MG/DL (8.5-10.1) Phosphorus Level 1.0 MG/DL (2.5-4.9) Total Bilirubin 0.4 MG/DL (0.2-1.0) Direct Bilirubin 0.2 MG/DL (0.0-0.3) Aspartate Amino Transf (AST/SGOT) 73 U/L (15-37) Alanine Aminotransferase (ALT/SGPT) 53 U/L (12-78) Alkaline Phosphatase 276 U/L (46-116) Total Protein 7.5 G/DL (6.4-8.2) Albumin 1.4 G/DL (3.4-5.0) Test 09/05/19 18:00 09/06/19 03:45 09/06/19 11:01 09/06/19 17:03 POC Whole Blood Glucose 180 MG/DL (74-106) 151 MG/DL (74-106) 154 MG/DL (74-106) White Blood Count 18.0 K/UL (4.8-10.8) Red Blood Count 3.09 M/UL (4.70-6.10) Hemoglobin 8.1 G/DL (14.2-18.0) Hematocrit 26.1 % (42.0-52.0) Mean Corpuscular Volume 85 FL (80-99) Mean Corpuscular Hemoglobin 26.4 PG (27.0-31.0) Mean Corpuscular Hemoglobin Concent 31.2 G/DL (32.0-36.0) Red Cell Distribution Width 17.4 % (11.6-14.8) Platelet Count 541 K/UL (150-450) Mean Platelet Volume 6.0 FL (6.5-10.1) Neutrophils (%) (Auto) % (45.0-75.0) Lymphocytes (%) (Auto) % (20.0-45.0) Monocytes (%) (Auto) % (1.0-10.0) Eosinophils (%) (Auto) % (0.0-3.0) Basophils (%) (Auto) % (0.0-2.0) Differential Total Cells Counted 100 Neutrophils % (Manual) 72 % (45-75) Lymphocytes % (Manual) 18 % (20-45) Monocytes % (Manual) 3 % (1-10) Eosinophils % (Manual) 7 % (0-3) Basophils % (Manual) 0 % (0-2) Band Neutrophils 0 % (0-8) Nucleated Red Blood Cells 1 /100 WBC Platelet Estimate Adequate Platelet Morphology Normal Hypochromasia 2+ Anisocytosis 1+ Sodium Level 146 MMOL/L (136-145) Potassium Level 4.0 MMOL/L (3.5-5.1) Chloride Level 106 MMOL/L (98-107) Carbon Dioxide Level 36 MMOL/L (21-32) Anion Gap 4 mmol/L (5-15) Blood Urea Nitrogen 39 mg/dL (7-18) Creatinine 1.9 MG/DL (0.55-1.30) Estimat Glomerular Filtration Rate 34.5 mL/min (>60) Glucose Level 166 MG/DL (74-106) Calcium Level 8.6 MG/DL (8.5-10.1) Test 09/06/19 23:16 09/07/19 03:42 09/07/19 05:14 09/07/19 11:41 POC Whole Blood Glucose 168 MG/DL (74-106) 156 MG/DL (74-106) White Blood Count 17.4 K/UL (4.8-10.8) Red Blood Count 3.35 M/UL (4.70-6.10) Hemoglobin 8.7 G/DL (14.2-18.0) Hematocrit 28.6 % (42.0-52.0) Mean Corpuscular Volume 85 FL (80-99) Mean Corpuscular Hemoglobin 25.9 PG (27.0-31.0) Mean Corpuscular Hemoglobin Concent 30.3 G/DL (32.0-36.0) Red Cell Distribution Width 17.6 % (11.6-14.8) Platelet Count 546 K/UL (150-450) Mean Platelet Volume 6.0 FL (6.5-10.1) Neutrophils (%) (Auto) 69.7 % (45.0-75.0) Lymphocytes (%) (Auto) 16.2 % (20.0-45.0) Monocytes (%) (Auto) 7.7 % (1.0-10.0) Eosinophils (%) (Auto) 5.4 % (0.0-3.0) Basophils (%) (Auto) 1.0 % (0.0-2.0) Sodium Level 139 MMOL/L (136-145) Potassium Level 4.0 MMOL/L (3.5-5.1) Chloride Level 100 MMOL/L (98-107) Carbon Dioxide Level 36 MMOL/L (21-32) Anion Gap 4 mmol/L (5-15) Blood Urea Nitrogen 53 mg/dL (7-18) Creatinine 2.7 MG/DL (0.55-1.30) Estimat Glomerular Filtration Rate 23.0 mL/min (>60) Glucose Level 148 MG/DL (74-106) Calcium Level 8.6 MG/DL (8.5-10.1) Height (Feet): 5 Height (Inches): 10.00 Weight (Pounds): 168 Objective Physical Exam General Appearance: nad, Chronically Ill Head: normocephalic Eyes: right eye PERRL - Will not open left eye ENT: moist mucus membranes Neck: other - submandibular mass R, fairly rigid with resistance to rotation to L, tracheotomy Respiratory: decreased breath sounds, crackles, other - pacemaker, vent+ Cardiovascular: regular rate, rhythm, edema - anasarca Gastrointestinal: non tender, distended, other - G tube Genitourinary: other Musculoskeletal: other - Contractures all extremities Neurologic: sensory intact, motor weakness, responsive Psychiatric: other Skin: Decubitus/Ulcer - Stage III right elbow, stage III left elbow, stage II sacrum, stage III scrotum, warm/dry Fitz Campos MD Sep 07, 2019 12:43
--- NOTE | 2019-09-07 13:38 | Surgery Progress Note ---
Surgery Progress Note Subjective Procedure Performed Right femoral temporary hemodialysis catheter removal Additional Comments no acute events leukocytosis Objective Last 24 Hour Vital Signs Date Time Temp Pulse Resp B/P (MAP) Pulse Ox O2 Delivery O2 Flow Rate FiO2 09/07/19 13:03 80 21 24 09/07/19 12:00 24 09/07/19 12:00 Mechanical Ventilator 09/07/19 12:00 98.3 78 16 145/70 (95) 100 09/07/19 11:13 74 17 24 09/07/19 09:06 71 17 24 09/07/19 08:35 70 118/55 09/07/19 08:35 118/55 09/07/19 08:00 98.1 70 15 118/55 (76) 100 09/07/19 08:00 Mechanical Ventilator 09/07/19 08:00 24 09/07/19 07:49 69 09/07/19 07:00 68 15 24 09/07/19 04:34 72 16 24 09/07/19 04:00 Mechanical Ventilator 09/07/19 04:00 24 09/07/19 04:00 98.2 71 18 180/63 (102) 100 09/07/19 03:51 180/77 09/07/19 03:29 71 09/07/19 03:18 69 16 24 09/07/19 00:39 71 19 24 09/07/19 00:00 97.7 71 18 146/83 (104) 100 09/07/19 00:00 Mechanical Ventilator 09/06/19 23:27 69 09/06/19 22:49 69 18 24 09/06/19 20:34 74 16 24 09/06/19 20:33 74 143/66 09/06/19 20:00 Mechanical Ventilator 09/06/19 20:00 97.9 73 18 143/66 (91) 100 09/06/19 20:00 24 09/06/19 19:05 72 09/06/19 19:02 74 16 24 09/06/19 17:16 75 16 24 09/06/19 16:00 Mechanical Ventilator 09/06/19 16:00 97.7 75 18 154/79 (104) 100 09/06/19 16:00 72 09/06/19 16:00 24 09/06/19 15:15 72 15 24 I&O Intake and Output 09/06/19 09/07/19 19:00 07:00 Intake Total 780 ml 1040 ml Output Total 40 ml Balance 740 ml 1040 ml Free Water 60 ml 390 ml IV Total 170 ml Tube Feeding 550 ml 650 ml Stool Total 40 ml Dressing: saturated Cardiovascular: RSR Respiratory: decreased breath sounds Abdomen: soft, non-tender, present bowel sounds Extremities: no cyanosis Laboratory Tests Test 09/06/19 17:03 09/06/19 23:16 09/07/19 03:42 09/07/19 05:14 POC Whole Blood Glucose 154 MG/DL (74-106) H 168 MG/DL (74-106) H 156 MG/DL (74-106) H White Blood Count 17.4 K/UL (4.8-10.8) H Red Blood Count 3.35 M/UL (4.70-6.10) L Hemoglobin 8.7 G/DL (14.2-18.0) L Hematocrit 28.6 % (42.0-52.0) L Mean Corpuscular Volume 85 FL (80-99) Mean Corpuscular Hemoglobin 25.9 PG (27.0-31.0) L Mean Corpuscular Hemoglobin Concent 30.3 G/DL (32.0-36.0) L Red Cell Distribution Width 17.6 % (11.6-14.8) H Platelet Count 546 K/UL (150-450) H Mean Platelet Volume 6.0 FL (6.5-10.1) L Neutrophils (%) (Auto) 69.7 % (45.0-75.0) Lymphocytes (%) (Auto) 16.2 % (20.0-45.0) L Monocytes (%) (Auto) 7.7 % (1.0-10.0) Eosinophils (%) (Auto) 5.4 % (0.0-3.0) H Basophils (%) (Auto) 1.0 % (0.0-2.0) Sodium Level 139 MMOL/L (136-145) Potassium Level 4.0 MMOL/L (3.5-5.1) Chloride Level 100 MMOL/L (98-107) Carbon Dioxide Level 36 MMOL/L (21-32) H Anion Gap 4 mmol/L (5-15) L Blood Urea Nitrogen 53 mg/dL (7-18) H Creatinine 2.7 MG/DL (0.55-1.30) H Estimat Glomerular Filtration Rate 23.0 mL/min (>60) Glucose Level 148 MG/DL (74-106) H Calcium Level 8.6 MG/DL (8.5-10.1) Test 09/07/19 11:41 POC Whole Blood Glucose Pending Plan Problems: (1) Anemia (2) Hyponatremia (3) Leukocytosis Assessment & Plan: Tracheostomy, left chest pacemaker are again demonstrated. There is bilateral interstitial and airspace disease and bilateral pleural fluid again demonstrated. This appears more severe than on the prior study. Bilateral interstitial and airspace infiltrates versus edema. Bilateral pleural effusions Leukocytosis, anemia, tachycardia, abnormal labs. Wound evaluated and likely etiology of patient's sepsis. Leukocytosis etiology work-up antibiotics per infectious disease Appreciate nephrology input transfuse with dialysis We will follow with recommendations thank you allowing participation's care plan HD access temp HD discussed with medical teams line okay HD as per renal persistent leukocytosis flow cyto noted improving trending down right fem line removed (4) Ventilator dependent (5) Right lower lobe pneumonia (6) Hypokalemia (7) Hyperkalemia (8) Anasarca (9) Decubitus skin ulcer Assessment & Plan: pt presented on admission with generalized edemae.Skin assessed under tracheostomy and no areas of concerns noted. GT Insertion is marginally erythematous with small amt slough at stoma. Unstageable Pressure Injury R elbow. Base of wound is 100% yellow slough, Borders are erythematous. Wound oozing small amt haemopurulent exudate.Darker skin tone without elevation in skin temp or erythema periwound. Pt's penis and scrotum are grossly edematous and enlarged and weeping serous exudate from numerous sites both from penis and scrotum. Two small open wounds noted at base of at base of shaft of penis ,and contreras aspect of scrotum. Both wounds oozing large amt sanguineous and serosanguineous exudate. Multiple open wounds with Biofilm at base of each wounds noted to contreras/lateral,inferior and posterior aspects of scrotum. These wounds noted to be oozing moderate amts of serosanguineous exudate. Hypertrophic scar with scattered areas of hyperpigmentation noted to Sacrum. DTPI noted to L Buttocks (L)7cm x (W)9cm. Base of wound is purple and indurated.Darker skin tone without erythema, induration or fluctuance R and L ischial tuberosities. Both heels are boggy with non-blanchable erythema. Tx.Plan: Cleanse wound R elbow with Saline. Apply TheraHoney, Apply Moisture Barrier Paste periwound. Cover with Optifoam drsg.Change Daily and prn. Wash GT site with soap and water.Pat dry. Apply Zinc Oxide Paste to GT site Daily. Leave Open to Air. Apply Zinc Oxide Paste to entire Scrotum, Place ABD pads to R and L lateral, and posterior aspects of scrotum TWICE daily. Apply Cavilon Skin Barrier to malleoli and both Heels. Cover each site with Optifoam drsgs. Change every 7 days and prn. Reposition at least every 2hours or as tolerated. Off-load heels with Pillows. APM/BECCA Mattress overlay. (10) Malnutrition Assessment & Plan: DAILY ESTIMATED NEEDS: Needs based on Renal, critical care, wound/ 61kg 22-30 kcals/kg 8597-8164 total kcals 1.25-2 g protein/kg 76-122 g total protein Fluid per MD, now on HD NUTRITION DIAGNOSIS: * Swallowing difficulty R/T respiratory failure, dysphagia as evidenced by trach/vent dep, PEG dep * Increased kcal/prot needs R/T wound healing as evidenced by admitted w/ multiple pressure injuries including full thickness wounds at junction of Shaft of penis, dorsal scrotum, R elbow, and DTPI @ L buttocks. CURRENT TF:Nepro @ 45ml/hr x 24 hrs ENTERAL NUTRITION RECOMMENDATIONS: NEPRO @ 40ml/hr x 24 hrs to provide 960ml, 1728kcal , 78g prot, 697ml free water * Decrease goal rate to 40ml/hr x 24hrs -> meets 100% est kcal/prot needs * HOB over 30 degrees/ water flush per MD WITH CONTINUED DIARRHEA AND CONSISTENTLY LOW LYTES, consider TF change to carb controlled, elemental TF Vital AF 1.2-> rec goal rate of 55ml/hr x 24 hrs to provide 1320ml, 1584kcal, 99g prot, 1070ml free water, 2228mg K and 1114mg phos ADDITIONAL RECOMMENDATIONS: * Per SNF: HT=63" SE=764 lbs (Vs EMR wt of 166lbs) -> obtain re-calibrated bedscale wt, rec daily wt monitoring * Wound healing: continue Nephrovite x 1 and Garo BID Vit C dosing per Nephro * Monitor renal fxn and lytes-> pt now on HD rec checking f/up phos (0.9* on 08/21) * Add probiotics to help alleviate diarrhea (11) Uremia (12) CKD (chronic kidney disease) stage 5, GFR less than 15 ml/min (13) Colon distention Assessment & Plan: discussed with GI likely functional as having lots of loose bm rectal tube kub f/u s/p colonoscopy - findings reviewed with GI Marked distention of the sigmoid colon. 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 No evidence of bowel wall thickening or pneumatosis 12 mm focus of contrast enhancement in the right pectineus muscle. While nonspecific in appearance, appearance raises concern for a possible pseudoaneurysm. Ill- defined thickening of the pectus medius muscle could indicate some intramuscular hemorrhage. The above findings were phoned to Dr. Urias at the time of interpretation Large bilateral pleural effusions Hazy pulmonary parenchymal opacities as well as dense consolidative opacities most likely represent pulmonary edema, but could represent pneumonia Evidence of anasarca elsewhere, with generalized edema of the subcutaneous fat Bladder wall thickening, raises concern for cystitis. Avalos catheter in place Colonic diverticulosis. No evidence of diverticulitis. Tracheostomy Pacemaker Gastrostomy Jonathan Urias Sep 07, 2019 13:38
--- NOTE | 2019-09-07 13:40 | NUR ---
NURSE NOTES: HD done, 2L out per HD nurseSylvester. BP 175/64 HR 78.
--- NOTE | 2019-09-07 13:46 | NUR ---
DISCHARGE PLANNING: NOTE F/U CALL PLACED TO [facility] [phone] / FAXED [phone] S/W ILIA MESSAGE LEFT FOR REMY WHO IS IN ADMISSIONS TODAY VM LEFT FOR HARPER AT [facility] Addendum: 09/07/19 at 1553 by Jessy Gonzalez DORIS S/W REMY AT [facility]. CLINICALS ARE STILL BE REVIEWED BY CARIE. CARIE WILL NOT BE DONE REVIEWING BY EOB TODAY. CM WILL CONTACT ADMISSIONS TOMORROW 09/07 CALL PLACED TO [facility] AT [facility] SEARCH FOR PLACEMENT IS STILL ONGOING WITH DIFFICULT PLACEMENT TEAM STORMY IS COVERING FOR THE REMAINDER OF THE DAY X 1566 PER [facility]PER'S REQUEST DORIS REACHED OUT TO [facility]. PER [facility] THERE ARE NO [facility] JUST [facility] SEARCH FOR PLACEMENT IS ONGOING
--- NOTE | 2019-09-07 15:33 | NUR ---
CASE MANAGEMENT: REVIEW 09/07/2019 SI:SEPSIS. RESP FAILURE. VS: T 98.3 HR 78 RR 16 B/P 145/70 SATS 100% ON MECH VENT FIO2 24 LABS: WBC 17.4 BUN 53 CR 2.7 GLU 148 IS:LIPITOR GT QHS LONITEN GT QD LOPRESSOR GTQ12H INSULIN ASPART GT Q12H SDU DCP: SNF PLAN OF CARE: DC PLANNING
--- NOTE | 2019-09-07 15:44 | NUR ---
INSURANCE AVAILABLE PROGRESS NOTES FOR 09/06 AND REVIEW FAXED TO ELIN ([employer] REF# [id number] RUSSELLM:HARPER P:[phone] F:[phone]
[2019-09-07 16:00] VITALS: BP 154/74
--- NOTE | 2019-09-07 19:05 | NUR ---
RESPIRATORY NOTE: Received pt on AC 15, 450VT, 24%, PEEP +5. Pt is trach-dependent w/ a cuffed, Portex 8 tube. Pt obtunded/disoriented. B/S ovi. rhonchi/diminished, sxn small to moderate amounts of thick/thin, perez-yellow secretions. Vent plugged into red outlet, ambubag at bedside. Pt in no apparent distress at this time. Will continue plan of care.
--- NOTE | 2019-09-07 19:10 | NUR ---
NURSE NOTES: Received report from TAMICA العلي. Patient Obtunded and resting in bed PM is on left upper chest: V-paced on ekg monitor Right subclavian Permacath for HD noted HD today 2L OUT (Tue, Shireen, Sat) Vent setting: Trach Portex 8, AC 15, TV 450, Fio2 24%, Peep 5 IV on left hand 22G CDUI GT feeding running: Vital AF 1.2 @ 50mL/hr No acute distress noted Safety measure observed Will continue to monitor
--- NOTE | 2019-09-07 19:30 | NUR ---
HAND-OFF: Report given to Ana Davis RN. Endorsed plan of care.
[2019-09-07 20:00] VITALS: BP 143/73
--- NOTE | 2019-09-07 20:02 | General Progress Note ---
Assessment/Plan Assessment/Plan: Assessment - colonoscopy negative to hepatic flexure - diarrhea - presumed TF related - abnormal LFT - Anemia - leukocytosis and thombocytosis - per heme - stool OB (+) - EGD --> gastritis - Renal failure - Sepsis / leukocytosis - Anasarca - resp failure, trach - dysphagia, GT - encephalopathy, contracted - poor px Recommendations - Continue TF - Elevate HOB - f/u Biopsies of colon --> negative - PPI - abx - supportive care Subjective Allergies: Coded Allergies: No Known Allergies (Unverified , 06/10/19) Subjective Above noted d/w RN tolerating TF Objective Last 24 Hour Vital Signs Date Time Temp Pulse Resp B/P (MAP) Pulse Ox O2 Delivery O2 Flow Rate FiO2 09/07/19 19:36 74 09/07/19 19:02 75 18 24 09/07/19 17:23 72 15 24 09/07/19 16:00 Mechanical Ventilator 09/07/19 16:00 24 09/07/19 16:00 98.1 74 15 154/74 (100) 100 09/07/19 16:00 73 09/07/19 15:06 74 15 24 09/07/19 14:22 175/65 09/07/19 13:03 80 21 24 09/07/19 12:00 24 09/07/19 12:00 Mechanical Ventilator 09/07/19 12:00 98.3 78 16 145/70 (95) 100 09/07/19 11:31 75 09/07/19 11:13 74 17 24 09/07/19 09:06 71 17 24 09/07/19 08:35 70 118/55 09/07/19 08:35 118/55 09/07/19 08:00 98.1 70 15 118/55 (76) 100 09/07/19 08:00 Mechanical Ventilator 09/07/19 08:00 24 09/07/19 07:49 69 09/07/19 07:00 68 15 24 09/07/19 04:34 72 16 24 09/07/19 04:00 Mechanical Ventilator 09/07/19 04:00 24 09/07/19 04:00 98.2 71 18 180/63 (102) 100 09/07/19 03:51 180/77 09/07/19 03:29 71 7/30/20 03:18 69 16 24 09/07/19 00:39 71 19 24 09/07/19 00:00 97.7 71 18 146/83 (104) 100 09/07/19 00:00 Mechanical Ventilator 09/06/19 23:27 69 09/06/19 22:49 69 18 24 09/06/19 20:34 74 16 24 09/06/19 20:33 74 143/66 Intake and Output 09/06/19 09/07/19 19:00 07:00 Intake Total 780 ml 1040 ml Output Total 40 ml Balance 740 ml 1040 ml Free Water 60 ml 390 ml IV Total 170 ml Tube Feeding 550 ml 650 ml Stool Total 40 ml Laboratory Tests 09/06/19 23:16: POC Whole Blood Glucose 168H 09/07/19 03:42: White Blood Count 17.4H, Red Blood Count 3.35L, Hemoglobin 8.7L, Hematocrit 28.6L, Mean Corpuscular Volume 85, Mean Corpuscular Hemoglobin 25.9L, Mean Corpuscular Hemoglobin Concent 30.3L, Red Cell Distribution Width 17.6H, Platelet Count 546H, Mean Platelet Volume 6.0L, Neutrophils (%) (Auto) 69.7, Lymphocytes (%) (Auto) 16.2L, Monocytes (%) (Auto) 7.7, Eosinophils (%) (Auto) 5.4H, Basophils (%) (Auto) 1.0, Sodium Level 139, Potassium Level 4.0, Chloride Level 100, Carbon Dioxide Level 36H, Anion Gap 4L, Blood Urea Nitrogen 53H, Creatinine 2.7H, Estimat Glomerular Filtration Rate 23.0, Glucose Level 148H, Calcium Level 8.6 09/07/19 05:14: POC Whole Blood Glucose 156H 09/07/19 11:41: POC Whole Blood Glucose [Pending] 09/07/19 16:00: Random Gentamicin Level 2.8 09/07/19 16:43: POC Whole Blood Glucose 152H Height (Feet): 5 Height (Inches): 10.00 Weight (Pounds): 168 Objective Debilitated AA man NCAT (+) trach coarse BS RR abd distended, anasarca, (+) GT ext (+) edema contracted Ronny Mustafa MD Sep 07, 2019 20:02
[2019-09-07] MEDS: Dyna-Hex 2% Top Sol 2oz TOPIC SCH (20:21)
[2019-09-07] MEDS: Atorvastatin 20mg tab GT SCH (20:23)
--- NOTE | 2019-09-07 23:00 | NUR ---
NURSE NOTES: Patient remains obtunded and resting in bed Pt is afebrile and VSS Permacath and IV sites are CDI Vent setting remains:Trach Portex 8, AC 15, TV 450, Fio2 24%, Peep 5 GT feeding remains and running: Vital AF 1.2 @ 50mL/hr No acute distress noted Safety measure observed Will continue to monitor
[2019-09-08] VITALS: BP 155/79
--- NOTE | 2019-09-08 01:00 | NUR ---
NURSE NOTES: AM care given Cleaned pt, changed soiled linens and gown Turned and repositioned Oral care performed Patient remains obtunded and resting in bed Pt is afebrile and VSS Permacath and IV sites are CDI Vent setting remains:Trach Portex 8, AC 15, TV 450, Fio2 24%, Peep 5 GT feeding remains and running: Vital AF 1.2 @ 50mL/hr No acute distress noted Safety measure observed Will continue to monitor
--- NOTE | 2019-09-08 03:00 | NUR ---
NURSE NOTES: Patient remains obtunded and resting in bed Pt is afebrile and VSS Permacath and IV sites are CDI Turned and repositioned Oral care performed No acute distress noted Safety measure observed Will continue to monitor
[2019-09-08 04:00] VITALS: BP 153/83
[2019-09-08] MEDS: NovoLOG Insulin Flexpen SUBQ SCH ×3 (05:28→17:41)
--- NOTE | 2019-09-08 05:37 | NUR ---
NURSE NOTES: Patient remains obtunded and resting in bed Changed soiled linen Pt is afebrile and VSS Permacath and IV sites are CDI Turned and repositioned Oral care performed No acute distress noted Safety measure observed Will continue to monitor
--- NOTE | 2019-09-08 07:22 | NUR ---
HAND-OFF: Report given to TAMICA Yu. Endorsed POC.
[2019-09-08 07:30] VITALS: BP 111/51
--- NOTE | 2019-09-08 07:30 | NUR ---
NURSE NOTES: Received report from TAMICA Flores and TAMICA Muhammad. The patient is resting on the bed without acute distress or shortness of breath. The patient is opening eyes with tactlie stimuli but eyes are not tracking. The patient is [facility] and on ventilator, and communication made by facial expression and body movement. The patient has L chest pacemaker, and V-pacing with HR of 70s on the secured entrance monitor. The patient is [facility] and on ventilator on following setting and oxygen saturation is 99%: Portex 8, AC 15, TV 450, FiO2 25%, and PEEP 5. The patient's GT intact and patent and running Vital AF 1.2 @ 50mL/hr per order and no residual noted. The patient's Avalos and Rectal tube intact and patent and draining by gravity. The patient has R subclavian cath for HD access. The patient's last HD was 09/06 with 2L output noted. New IV inserted on L FA 22G that is intact and patent. The patient's skin issue noted and dressing intact. The patient's bed in the lowest position, call light in reach, and fall and aspiration precaution reinforced. IV site intact and patent. Will follow up the order and lab. Will closely monitor the patient. Will continue plan of care. Addendum: 09/08/19 at 1057 by Bao Marshall RN No Avalos at this time. Removed on 08/30/2019.
--- NOTE | 2019-09-08 08:00 | NUR ---
NURSE NOTES: Initial vital signs taken. Stable vital signs noted. Initial nursing assessment completed. Will closely monitor the patient. Will continue plan of care.
--- NOTE | 2019-09-08 08:27 | Nephrology Progress Note ---
Assessment/Plan Plan Sepsis - IV Abx Established ESRD - HD now TTS. DW HD RN. Subjective Subjective Obtunded. Objective Objective Last 24 Hour Vital Signs Date Time Temp Pulse Resp B/P (MAP) Pulse Ox O2 Delivery O2 Flow Rate FiO2 09/08/19 07:30 98.2 77 18 111/51 (71) 100 09/08/19 07:02 77 16 24 09/08/19 05:57 75 17 24 09/08/19 04:00 99.1 73 18 153/83 (106) 100 09/08/19 04:00 Mechanical Ventilator 09/08/19 04:00 24 09/08/19 03:34 75 09/08/19 03:04 78 18 24 09/08/19 00:48 76 18 24 09/08/19 00:00 76 09/08/19 00:00 98.2 76 18 155/79 (104) 100 09/08/19 00:00 Mechanical Ventilator 09/07/19 23:06 73 17 24 09/07/19 21:24 75 143/73 09/07/19 21:12 73 16 24 09/07/19 20:00 Mechanical Ventilator 09/07/19 20:00 97.7 73 15 143/73 (96) 100 09/07/19 20:00 24 09/07/19 19:36 74 09/07/19 19:02 75 18 24 09/07/19 17:23 72 15 24 09/07/19 16:00 Mechanical Ventilator 09/07/19 16:00 24 09/07/19 16:00 98.1 74 15 154/74 (100) 100 09/07/19 16:00 73 09/07/19 15:06 74 15 24 09/07/19 14:22 175/65 09/07/19 13:03 80 21 24 09/07/19 12:00 24 09/07/19 12:00 Mechanical Ventilator 09/07/19 12:00 98.3 78 16 145/70 (95) 100 09/07/19 11:31 75 09/07/19 11:13 74 17 24 09/07/19 09:06 71 17 24 09/07/19 08:35 70 118/55 09/07/19 08:35 118/55 Intake and Output 09/07/19 09/08/19 19:00 07:00 Intake Total 840 ml 560 ml Output Total 2030 ml Balance -1190 ml 560 ml Free Water 240 ml 60 ml Tube Feeding 600 ml 500 ml Stool Total 30 ml Hemodialysis UF 2000 ml # Voids 1 Laboratory Tests 09/07/19 11:41: POC Whole Blood Glucose [Pending] 09/07/19 16:00: Random Gentamicin Level 2.8 09/07/19 16:43: POC Whole Blood Glucose 152H Height (Feet): 5 Height (Inches): 10.00 Weight (Pounds): 165 Objective CV RR Trach clean Lungs CTA New Perma Cath RIJ. Old Femoral Rancho still in Rt. Groin! Abd SNT. BS + E No CCE Erica Pichardo MD Sep 08, 2019 08:27
--- NOTE | 2019-09-08 08:30 | NUR ---
NURSE NOTES: Called [facility] for HD schedule for 09/09/[address] Pichardo's order. Spoke with Dipika @ [facility] for confirmation of the schedule. Will continue plan of care.
--- NOTE | 2019-09-08 08:56 | NUR ---
RD ASSESSMENT & RECOMMENDATIONS SEE CARE ACTIVITY FOR COMPLETE ASSESSMENT DAILY ESTIMATED NEEDS: Needs based on Renal, critical care, wound/ 61kg 22-30 kcals/kg 8140-1642 total kcals 1.25-2 g protein/kg 76-122 g total protein Fluid per MD, now on HD NUTRITION DIAGNOSIS: * Swallowing difficulty R/T respiratory failure, dysphagia as evidenced by trach/vent dep, PEG dep * Increased kcal/prot needs R/T wound healing as evidenced by admitted w/ multiple pressure injuries including full thickness wounds at junction of Shaft of penis, dorsal scrotum, R elbow, and DTPI @ L buttocks. CURRENT TF:Vital AF 1.2 @ 50ml/hr x 24 hrs + Garo BID ENTERAL NUTRITION RECOMMENDATIONS: Vital AF 1.2 @ 50ml/hr x 24 hrs to provide 1200ml, 1440kcal,9 0g prot, 973ml free water * Maintain elemental TF of Vital AF 1.2 w/ continued diarrhea -> monitor lytes and renal fxn closely, monitor need for renal T -> TF @ goal will provide 1642mg K and 2025mg Phos * HOB over 30 degrees/ water flush per MD * Continue Garo BID via PEG ADDITIONAL RECOMMENDATIONS: * Per SNF: HT=63" XW=198 lbs (vs EMR wt of 166lbs) -> obtain re-calibrated bedscale wt, rec daily wt monitoring * Wound healing: con't Nephrovite + Garo BID/ Vit C dosing per Nephro * Monitor renal fxn and lytes closely w/ non-renal TF - previously w/ multiple episodes of low K and phos - Check f/up phos (1. 0on 09/04) * Add probiotics and anti-diarrheal meds - prolonged diarrhea, +rectal tube
[2019-09-08] MEDS: Minoxidil 2.5mg tab GT SCH (09:00)
[2019-09-08] MEDS: Zinc Oxide Oint 2oz TOPIC SCH ×2 (09:01→17:42)
[2019-09-08] MEDS: Metoprolol Tartrate 100mg tab GT SCH ×2 (09:01→20:34)
--- NOTE | 2019-09-08 09:22 | Hematology/Onc Progress Note ---
Assessment/Plan Assessment/Plan Assessment/recs # Leukocytosis - with multiple infections, VRE UTI, flow is negative --> wbc trend 33-->28-->25->23->22->23->24->17.3-->17-->14->16-->15.6-->14-->14- >13->19->18->17 --> on abx, linezolid and zosyn--> zosyn-->off --> + blood cultures with coag neg staph likely contaminated --> as per id recs --> has ordered a flow cytometry (with pathology) --> does show increased nK cell activity --> JOURDAN 2 and bcr-abl labs ordered (these are send outs) --> plt 585-->613-->649-->669->663 # Anemia due to chronic disease/kidney disease as well, gi bleed + occult + noted --> was on iron in the past, now on hold --> has been started on Epogen sq --> as per renal care --> egd done and shows gastritis --> on ppi --> egd showed gastritis, colo recently done --> hgb 9-->8.7-->7.6-->9.2-->8.9-->9.2->9.3-->8.8->9.9-->9.2-->8.1-->8.7 # Respiratory failure --> per pulm, s/p trach --> COVID 19 test negative x 2 # Dysphagia s/p gtube with nepro --> per gi # ESRD with r fem julito --> hd as per renal # Dvt ppx scds Appreciate consultation and dw Rn Subjective Constitutional: Denies: no symptoms, chills, fever, malaise, weakness, other HEENT: Denies: no symptoms, eye pain, blurred vision, tearing, double vision, ear pain, ear discharge, nose pain, nose congestion, throat pain, throat swelling, mouth pain, mouth swelling, other Cardiovascular: Denies: no symptoms, chest pain, edema, irregular heart rate, lightheadedness, palpitations, syncope, other Gastrointestinal/Abdominal: Denies: no symptoms, abdomen distended, abdominal pain, black stools, tarry stools, blood in stool, constipated, diarrhea, difficulty swallowing, nausea, poor appetite, poor fluid intake, rectal bleeding , vomiting, other Genitourinary: Denies: no symptoms, burning, discharge, frequency, flank pain, hematuria, incontinence, pain, urgency, other Neurologic/Psychiatric: Denies: no symptoms, anxiety, depressed, emotional problems, headache, numbness, paresthesia, pre-existing deficit, seizure, tingling, tremors, weakness, other Endocrine: Denies: no symptoms, excessive sweating, flushing, intolerance to cold, intolerance to heat, increased hunger, increased thirst, increased urine, unexplained weight gain, unexplained weight loss, other Hematologic/Lymphatic: Denies: no symptoms, anemia, easy bleeding, easy bruising, adenopathy, other Allergies: Coded Allergies: No Known Allergies (Unverified , 06/10/19) Subjective 08/15 meds noted, no bleeding, hgb 8.8, wbc 28, path flow pending 08/16 flow pending dw pathologist, results pending, wbc 25, hgb 9 08/17 labs reviewed, meds reviewed, meds noted, no night sweats 08/19 remains obtunded, on vent/trach, no bleeding wbc 21.7 08/20 labs have been reviewed, no bleeding, wbc still elev, path reviewed 08/21 labs are noted, no bleeding, on vent, wbc better 08/22 labs noted, no bleeding, meds reviewed, wbc 24 hgb 7.6 08/23 vent, off abx, c diff negative, h/h stable 08/24 labs reviewed, on abx, wbc 17, hgb 8.9, no hemolysis 08/26 reviewed flow and is negative for leukemia, matt rn 08/27 meds reviewed, no night sweats, matt rn, no major bleeding 08/28 meds reivewed, labs noted 08/29 wbc is stable, approx 15, hgb 8.8, no hemolysis 08/30 labs are noted, is for colo today, hgb 9.9 08/31 right fem julito in place, unchanged, hgb 9.2, gi aware 09/01 labs noted, hgb 8.8, plt >600, no bleeding 09/02 labs noted, no bleeding, with elev wbc still, no new changes 09/03 meds are noted, no bleeding, labs reviewed hgb 8.6 09/04 no major events, hd as per renal, abx, no bleeding hgb low 09/05 labs are noted, no bleeding, meds have been reviewed 09/06 no new labs no hemolysis, cbc is noted, no bleeding 09/07 meds reviewed, no bleeding, dw rn, permacat functioning well Objective Objective Current Medications Medications (Trade) Dose Ordered Sig/Leonel Route PRN Reason Start Time Stop Time Status Last Admin Dose Admin Atorvastatin Calcium (Lipitor) 40 mg BEDTIME GT 08/09/19 21:00 11/07/19 20:59 09/07/19 20:23 Chlorhexidine Gluconate (Felipa-Hex 2%) 1 applic DAILY@1999 TOPIC 08/15/19 20:00 11/13/19 19:59 09/07/19 20:21 Clonidine HCl (Catapres Tab) 0.1 mg Q4H PRN GT SBP>150 08/12/19 10:45 11/10/19 06:44 09/07/19 14:22 Dextrose (Dextrose 50%) 25 ml Q30M PRN IV Hypoglycemia 08/09/19 07:30 11/07/19 07:29 Dextrose (Dextrose 50%) 50 ml Q30M PRN IV Hypoglycemia 08/09/19 07:30 11/07/19 07:29 Epoetin Andreas (Epoetin Andreas(ESRD on dialysis)) 10,000 unit WED-WED-WED SUBQ 08/18/19 21:00 11/16/19 20:59 09/06/19 20:32 Famotidine (Pepcid) 20 mg DAILY GT 08/30/19 09:00 11/28/19 08:59 09/08/19 09:01 Gentamicin Protocol (Gentamicin pharmacy to dose) 1 ea DAILY PRN MISC PER RX PROTOCOL 09/06/19 11:00 09/12/19 23:59 Heparin Sodium (Porcine) (Heparin Sod 1000 units/ml 10ml) 2,000 unit ONCE PRN IV HD USE 09/09/19 06:00 09/09/19 23:59 Heparin Sodium (Porcine) (Heparin) 1,000 unit POSTHD PRN INJ HD USE 09/09/19 06:00 8/1/20 23:59 Insulin Aspart (NovoLOG) Q6HR SUBQ 08/10/19 00:00 11/07/19 11:29 09/08/19 05:28 Metoprolol Tartrate (Lopressor) 200 mg Q12HR GT 08/09/19 09:00 11/07/19 08:59 09/08/19 09:01 Minoxidil (Loniten) 5 mg DAILY GT 08/09/19 09:00 11/07/19 08:59 09/08/19 09:00 Sodium Chloride 1,000 ml @ 500 mls/hr Q2H PRN IVLG sbp<90 during hd 09/09/19 06:00 09/09/19 23:59 Zinc Oxide (Zinc Oxide) 1 applic BID TOPIC 08/10/19 18:00 11/08/19 17:59 09/08/19 09:01 Last 24 Hour Vital Signs Date Time Temp Pulse Resp B/P (MAP) Pulse Ox O2 Delivery O2 Flow Rate FiO2 09/08/19 09:01 77 158/85 09/08/19 09:00 158/85 09/08/19 08:51 74 15 24 09/08/19 07:30 98.2 77 18 111/51 (71) 100 09/08/19 07:02 77 16 24 09/08/19 05:57 75 17 24 09/08/19 04:00 99.1 73 18 153/83 (106) 100 09/08/19 04:00 Mechanical Ventilator 09/08/19 04:00 24 09/08/19 03:34 75 09/08/19 03:04 78 18 24 09/08/19 00:48 76 18 24 09/08/19 00:00 76 09/08/19 00:00 98.2 76 18 155/79 (104) 100 09/08/19 00:00 Mechanical Ventilator 09/07/19 23:06 73 17 24 09/07/19 21:24 75 143/73 09/07/19 21:12 73 16 24 09/07/19 20:00 Mechanical Ventilator 09/07/19 20:00 97.7 73 15 143/73 (96) 100 09/07/19 20:00 24 09/07/19 19:36 74 09/07/19 19:02 75 18 24 09/07/19 17:23 72 15 24 09/07/19 16:00 Mechanical Ventilator 09/07/19 16:00 24 09/07/19 16:00 98.1 74 15 154/74 (100) 100 09/07/19 16:00 73 09/07/19 15:06 74 15 24 09/07/19 14:22 175/65 09/07/19 13:03 80 21 24 09/07/19 12:00 24 09/07/19 12:00 Mechanical Ventilator 09/07/19 12:00 98.3 78 16 145/70 (95) 100 09/07/19 11:31 75 09/07/19 11:13 74 17 24 09/07/19 09:06 71 17 24 09/07/19 08:35 70 118/55 09/07/19 08:35 118/55 09/07/19 08:00 98.1 70 15 118/55 (76) 100 09/07/19 08:00 Mechanical Ventilator 09/07/19 08:00 24 09/07/19 07:49 69 09/07/19 07:00 68 15 24 09/07/19 04:34 72 16 24 09/07/19 04:00 Mechanical Ventilator 09/07/19 04:00 24 09/07/19 04:00 98.2 71 18 180/63 (102) 100 09/07/19 03:51 180/77 09/07/19 03:29 71 09/07/19 03:18 69 16 24 09/07/19 00:39 71 19 24 09/07/19 00:00 97.7 71 18 146/83 (104) 100 09/07/19 00:00 Mechanical Ventilator 09/06/19 23:27 69 09/06/19 22:49 69 18 24 09/06/19 20:34 74 16 24 09/06/19 20:33 74 143/66 09/06/19 20:00 Mechanical Ventilator 09/06/19 20:00 97.9 73 18 143/66 (91) 100 09/06/19 20:00 24 09/06/19 19:05 72 09/06/19 19:02 74 16 24 09/06/19 17:16 75 16 24 09/06/19 16:00 Mechanical Ventilator 09/06/19 16:00 97.7 75 18 154/79 (104) 100 09/06/19 16:00 72 09/06/19 16:00 24 09/06/19 15:15 72 15 24 09/06/19 13:15 72 17 24 09/06/19 12:00 24 09/06/19 12:00 69 09/06/19 12:00 Mechanical Ventilator 09/06/19 12:00 98.1 82 22 148/73 (98) 100 09/06/19 11:17 72 19 24 Intake and Output 09/07/19 09/08/19 19:00 07:00 Intake Total 840 ml 560 ml Output Total 2030 ml Balance -1190 ml 560 ml Free Water 240 ml 60 ml Tube Feeding 600 ml 500 ml Stool Total 30 ml Hemodialysis UF 2000 ml # Voids 1 Labs Test 09/05/19 11:29 09/05/19 18:00 09/06/19 03:45 09/06/19 11:01 POC Whole Blood Glucose 180 MG/DL (74-106) 151 MG/DL (74-106) White Blood Count 18.0 K/UL (4.8-10.8) Red Blood Count 3.09 M/UL (4.70-6.10) Hemoglobin 8.1 G/DL (14.2-18.0) Hematocrit 26.1 % (42.0-52.0) Mean Corpuscular Volume 85 FL (80-99) Mean Corpuscular Hemoglobin 26.4 PG (27.0-31.0) Mean Corpuscular Hemoglobin Concent 31.2 G/DL (32.0-36.0) Red Cell Distribution Width 17.4 % (11.6-14.8) Platelet Count 541 K/UL (150-450) Mean Platelet Volume 6.0 FL (6.5-10.1) Neutrophils (%) (Auto) % (45.0-75.0) Lymphocytes (%) (Auto) % (20.0-45.0) Monocytes (%) (Auto) % (1.0-10.0) Eosinophils (%) (Auto) % (0.0-3.0) Basophils (%) (Auto) % (0.0-2.0) Differential Total Cells Counted 100 Neutrophils % (Manual) 72 % (45-75) Lymphocytes % (Manual) 18 % (20-45) Monocytes % (Manual) 3 % (1-10) Eosinophils % (Manual) 7 % (0-3) Basophils % (Manual) 0 % (0-2) Band Neutrophils 0 % (0-8) Nucleated Red Blood Cells 1 /100 WBC Platelet Estimate Adequate Platelet Morphology Normal Hypochromasia 2+ Anisocytosis 1+ Sodium Level 146 MMOL/L (136-145) Potassium Level 4.0 MMOL/L (3.5-5.1) Chloride Level 106 MMOL/L (98-107) Carbon Dioxide Level 36 MMOL/L (21-32) Anion Gap 4 mmol/L (5-15) Blood Urea Nitrogen 39 mg/dL (7-18) Creatinine 1.9 MG/DL (0.55-1.30) Estimat Glomerular Filtration Rate 34.5 mL/min (>60) Glucose Level 166 MG/DL (74-106) Calcium Level 8.6 MG/DL (8.5-10.1) Test 09/06/19 17:03 09/06/19 23:16 09/07/19 03:42 09/07/19 05:14 POC Whole Blood Glucose 154 MG/DL (74-106) 168 MG/DL (74-106) 156 MG/DL (74-106) White Blood Count 17.4 K/UL (4.8-10.8) Red Blood Count 3.35 M/UL (4.70-6.10) Hemoglobin 8.7 G/DL (14.2-18.0) Hematocrit 28.6 % (42.0-52.0) Mean Corpuscular Volume 85 FL (80-99) Mean Corpuscular Hemoglobin 25.9 PG (27.0-31.0) Mean Corpuscular Hemoglobin Concent 30.3 G/DL (32.0-36.0) Red Cell Distribution Width 17.6 % (11.6-14.8) Platelet Count 546 K/UL (150-450) Mean Platelet Volume 6.0 FL (6.5-10.1) Neutrophils (%) (Auto) 69.7 % (45.0-75.0) Lymphocytes (%) (Auto) 16.2 % (20.0-45.0) Monocytes (%) (Auto) 7.7 % (1.0-10.0) Eosinophils (%) (Auto) 5.4 % (0.0-3.0) Basophils (%) (Auto) 1.0 % (0.0-2.0) Sodium Level 139 MMOL/L (136-145) Potassium Level 4.0 MMOL/L (3.5-5.1) Chloride Level 100 MMOL/L (98-107) Carbon Dioxide Level 36 MMOL/L (21-32) Anion Gap 4 mmol/L (5-15) Blood Urea Nitrogen 53 mg/dL (7-18) Creatinine 2.7 MG/DL (0.55-1.30) Estimat Glomerular Filtration Rate 23.0 mL/min (>60) Glucose Level 148 MG/DL (74-106) Calcium Level 8.6 MG/DL (8.5-10.1) Test 09/07/19 11:41 09/07/19 16:00 09/07/19 16:43 Random Gentamicin Level 2.8 ug/mL POC Whole Blood Glucose 152 MG/DL (74-106) Height (Feet): 5 Height (Inches): 10.00 Weight (Pounds): 165 Objective Physical Exam General Appearance: nad, Chronically Ill Head: normocephalic Eyes: right eye PERRL - Will not open left eye ENT: moist mucus membranes Neck: other - submandibular mass R, fairly rigid with resistance to rotation to L, tracheotomy Respiratory: decreased breath sounds, crackles, other - pacemaker, vent+ Cardiovascular: regular rate, rhythm, edema - anasarca Gastrointestinal: non tender, distended, other - G tube Genitourinary: other Musculoskeletal: other - Contractures all extremities Neurologic: sensory intact, motor weakness, responsive Psychiatric: other Skin: Decubitus/Ulcer - Stage III right elbow, stage III left elbow, stage II sacrum, stage III scrotum, warm/dry Fitz Campos MD Sep 08, 2019 09:22
--- NOTE | 2019-09-08 10:00 | NUR ---
NURSE NOTES: Morning medications administered per order. The patient tolerated well. Will closely monitor the patient. Will continue plan of care.
--- NOTE | 2019-09-08 10:33 | Infectious Diseases Prog Note ---
Assessment/Plan Assessment/Plan antibiotics : gentamicin 7.29.20- A 1. klebsiella catheter infection s/p removal 2. respiratory failure 3. leucocytosis 4. klebsiella, pseudomonas, providencia pneumonia s/p rx COVID 19 test negative x 2 5. renal failure on HD P 1. continue iv gentamicin 4 more days 2. will follow up cultures Subjective ROS Limited/Unobtainable: Yes Allergies: Coded Allergies: No Known Allergies (Unverified , 06/10/19) Objective Last 24 Hour Vital Signs Date Time Temp Pulse Resp B/P (MAP) Pulse Ox O2 Delivery O2 Flow Rate FiO2 09/08/19 09:01 77 158/85 09/08/19 09:00 158/85 09/08/19 08:51 74 15 24 09/08/19 08:00 25 09/08/19 07:30 98.2 77 18 111/51 (71) 100 09/08/19 07:02 77 16 24 09/08/19 05:57 75 17 24 09/08/19 04:00 99.1 73 18 153/83 (106) 100 09/08/19 04:00 Mechanical Ventilator 09/08/19 04:00 24 09/08/19 03:34 75 09/08/19 03:04 78 18 24 09/08/19 00:48 76 18 24 09/08/19 00:00 76 09/08/19 00:00 98.2 76 18 155/79 (104) 100 09/08/19 00:00 Mechanical Ventilator 09/07/19 23:06 73 17 24 09/07/19 21:24 75 143/73 09/07/19 21:12 73 16 24 09/07/19 20:00 Mechanical Ventilator 09/07/19 20:00 97.7 73 15 143/73 (96) 100 09/07/19 20:00 24 09/07/19 19:36 74 09/07/19 19:02 75 18 24 09/07/19 17:23 72 15 24 09/07/19 16:00 Mechanical Ventilator 09/07/19 16:00 24 09/07/19 16:00 98.1 74 15 154/74 (100) 100 09/07/19 16:00 73 09/07/19 15:06 74 15 24 09/07/19 14:22 175/65 09/07/19 13:03 80 21 24 7/30/20 12:00 24 09/07/19 12:00 Mechanical Ventilator 09/07/19 12:00 98.3 78 16 145/70 (95) 100 09/07/19 11:31 75 09/07/19 11:13 74 17 24 Height (Feet): 5 Height (Inches): 10.00 Weight (Pounds): 165 HEENT: status post trach Respiratory/Chest: lungs clear Cardiovascular: normal rate, regular rhythm, no gallop/murmur Abdomen: soft, non tender, other Extremities: other - + edema, right subclavian catheter Laboratory Tests Test 09/07/19 11:41 09/07/19 16:00 09/07/19 16:43 POC Whole Blood Glucose Pending 152 MG/DL (74-106) H Random Gentamicin Level 2.8 ug/mL Current Medications Medications (Trade) Dose Ordered Sig/Leonel Route PRN Reason Start Time Stop Time Status Last Admin Dose Admin Atorvastatin Calcium (Lipitor) 40 mg BEDTIME GT 08/09/19 21:00 11/07/19 20:59 09/07/19 20:23 Chlorhexidine Gluconate (Felipa-Hex 2%) 1 applic DAILY@2000 TOPIC 08/15/19 20:00 11/13/19 19:59 09/07/19 20:21 Clonidine HCl (Catapres Tab) 0.1 mg Q4H PRN GT SBP>150 08/12/19 10:45 11/10/19 06:44 09/07/19 14:22 Dextrose (Dextrose 50%) 25 ml Q30M PRN IV Hypoglycemia 08/09/19 07:30 11/07/19 07:29 Dextrose (Dextrose 50%) 50 ml Q30M PRN IV Hypoglycemia 08/09/19 07:30 11/07/19 07:29 Epoetin Andreas (Epoetin Andreas(ESRD on dialysis)) 10,000 unit WED-WED-WED SUBQ 08/18/19 21:00 11/16/19 20:59 09/06/19 20:32 Famotidine (Pepcid) 20 mg DAILY GT 08/30/19 09:00 11/28/19 08:59 09/08/19 09:01 Gentamicin Protocol (Gentamicin pharmacy to dose) 1 ea DAILY PRN MISC PER RX PROTOCOL 09/06/19 11:00 09/12/19 23:59 Heparin Sodium (Porcine) (Heparin Sod 1000 units/ml 10ml) 2,000 unit ONCE PRN IV HD USE 09/09/19 06:00 09/09/19 23:59 Heparin Sodium (Porcine) (Heparin) 1,000 unit POSTHD PRN INJ HD USE 09/09/19 06:00 09/09/19 23:59 Insulin Aspart (NovoLOG) Q6HR SUBQ 08/10/19 00:00 11/07/19 11:29 09/08/19 05:28 Metoprolol Tartrate (Lopressor) 200 mg Q12HR GT 08/09/19 09:00 11/07/19 08:59 09/08/19 09:01 Minoxidil (Loniten) 5 mg DAILY GT 08/09/19 09:00 11/07/19 08:59 09/08/19 09:00 Sodium Chloride 1,000 ml @ 500 mls/hr Q2H PRN IVLG sbp<90 during hd 09/09/19 06:00 09/09/19 23:59 Zinc Oxide (Zinc Oxide) 1 applic BID TOPIC 08/10/19 18:00 11/08/19 17:59 09/08/19 09:01 Farnaz Lyle MD Sep 08, 2019 10:33
[2019-09-08 11:00] VITALS: BP 141/65
--- NOTE | 2019-09-08 11:00 | Surgery Progress Note ---
Surgery Progress Note Subjective Procedure Performed Right femoral temporary hemodialysis catheter removal Additional Comments afebrile, HD stable labs noted micro noted exam stable comfortable Objective Last 24 Hour Vital Signs Date Time Temp Pulse Resp B/P (MAP) Pulse Ox O2 Delivery O2 Flow Rate FiO2 09/08/19 09:01 77 158/85 09/08/19 09:00 158/85 09/08/19 08:51 74 15 24 09/08/19 08:00 25 09/08/19 07:30 98.2 77 18 111/51 (71) 100 09/08/19 07:02 77 16 24 09/08/19 05:57 75 17 24 09/08/19 04:00 99.1 73 18 153/83 (106) 100 09/08/19 04:00 Mechanical Ventilator 09/08/19 04:00 24 09/08/19 03:34 75 09/08/19 03:04 78 18 24 09/08/19 00:48 76 18 24 09/08/19 00:00 76 09/08/19 00:00 98.2 76 18 155/79 (104) 100 09/08/19 00:00 Mechanical Ventilator 09/07/19 23:06 73 17 24 09/07/19 21:24 75 143/73 09/07/19 21:12 73 16 24 09/07/19 20:00 Mechanical Ventilator 09/07/19 20:00 97.7 73 15 143/73 (96) 100 09/07/19 20:00 24 09/07/19 19:36 74 09/07/19 19:02 75 18 24 09/07/19 17:23 72 15 24 09/07/19 16:00 Mechanical Ventilator 09/07/19 16:00 24 09/07/19 16:00 98.1 74 15 154/74 (100) 100 09/07/19 16:00 73 09/07/19 15:06 74 15 24 09/07/19 14:22 175/65 09/07/19 13:03 80 21 24 09/07/19 12:00 24 09/07/19 12:00 Mechanical Ventilator 09/07/19 12:00 98.3 78 16 145/70 (95) 100 09/07/19 11:31 75 09/07/19 11:13 74 17 24 I&O Intake and Output 09/07/19 09/08/19 19:00 07:00 Intake Total 840 ml 560 ml Output Total 2030 ml Balance -1190 ml 560 ml Free Water 240 ml 60 ml Tube Feeding 600 ml 500 ml Stool Total 30 ml Hemodialysis UF 2000 ml # Voids 1 Dressing: saturated Wound: other Drains: other Cardiovascular: RSR Respiratory: decreased breath sounds Abdomen: soft, non-tender, present bowel sounds Extremities: no tenderness Laboratory Tests Test 09/07/19 11:41 09/07/19 16:00 09/07/19 16:43 POC Whole Blood Glucose Pending 152 MG/DL (74-106) H Random Gentamicin Level 2.8 ug/mL Plan Problems: (1) Anemia (2) Hyponatremia (3) Leukocytosis Assessment & Plan: Tracheostomy, left chest pacemaker are again demonstrated. There is bilateral interstitial and airspace disease and bilateral pleural fluid again demonstrated. This appears more severe than on the prior study. Bilateral interstitial and airspace infiltrates versus edema. Bilateral pleural effusions Leukocytosis, anemia, tachycardia, abnormal labs. Wound evaluated and likely etiology of patient's sepsis. Leukocytosis etiology work-up antibiotics per infectious disease Appreciate nephrology input transfuse with dialysis We will follow with recommendations thank you allowing participation's care plan HD access temp HD discussed with medical teams line okay HD as per renal persistent leukocytosis flow cyto noted improving trending down right fem line removed (4) Ventilator dependent (5) Right lower lobe pneumonia (6) Hypokalemia (7) Hyperkalemia (8) Anasarca (9) Decubitus skin ulcer Assessment & Plan: pt presented on admission with generalized edemae.Skin assessed under tracheostomy and no areas of concerns noted. GT Insertion is marginally erythematous with small amt slough at stoma. Unstageable Pressure Injury R elbow. Base of wound is 100% yellow slough, Borders are erythematous. Wound oozing small amt haemopurulent exudate.Darker skin tone without elevation in skin temp or erythema periwound. Pt's penis and scrotum are grossly edematous and enlarged and weeping serous exudate from numerous sites both from penis and scrotum. Two small open wounds noted at base of at base of shaft of penis ,and contreras aspect of scrotum. Both wounds oozing large amt sanguineous and serosanguineous exudate. Multiple open wounds with Biofilm at base of each wounds noted to contreras/lateral,inferior and posterior aspects of scrotum. These wounds noted to be oozing moderate amts of serosanguineous exudate. Hypertrophic scar with scattered areas of hyperpigmentation noted to Sacrum. DTPI noted to L Buttocks (L)7cm x (W)9cm. Base of wound is purple and indurated.Darker skin tone without erythema, induration or fluctuance R and L ischial tuberosities. Both heels are boggy with non-blanchable erythema. Tx.Plan: Cleanse wound R elbow with Saline. Apply TheraHoney, Apply Moisture Barrier Paste periwound. Cover with Optifoam drsg.Change Daily and prn. Wash GT site with soap and water.Pat dry. Apply Zinc Oxide Paste to GT site Daily. Leave Open to Air. Apply Zinc Oxide Paste to entire Scrotum, Place ABD pads to R and L lateral, and posterior aspects of scrotum TWICE daily. Apply Cavilon Skin Barrier to malleoli and both Heels. Cover each site with Optifoam drsgs. Change every 7 days and prn. Reposition at least every 2hours or as tolerated. Off-load heels with Pillows. APM/BECCA Mattress overlay. (10) Malnutrition Assessment & Plan: DAILY ESTIMATED NEEDS: Needs based on Renal, critical care, wound/ 61kg 22-30 kcals/kg 6036-5570 total kcals 1.25-2 g protein/kg 76-122 g total protein Fluid per MD, now on HD NUTRITION DIAGNOSIS: * Swallowing difficulty R/T respiratory failure, dysphagia as evidenced by trach/vent dep, PEG dep * Increased kcal/prot needs R/T wound healing as evidenced by admitted w/ multiple pressure injuries including full thickness wounds at junction of Shaft of penis, dorsal scrotum, R elbow, and DTPI @ L buttocks. CURRENT TF:Vital AF 1.2 @ 50ml/hr x 24 hrs + Garo BID ENTERAL NUTRITION RECOMMENDATIONS: Vital AF 1.2 @ 50ml/hr x 24 hrs to provide 1200ml, 1440kcal,9 0g prot, 973ml free water * Maintain elemental TF of Vital AF 1.2 w/ continued diarrhea -> monitor lytes and renal fxn closely, monitor need for renal T -> TF @ goal will provide 1642mg K and 2025mg Phos * HOB over 30 degrees/ water flush per MD * Continue Garo BID via PEG ADDITIONAL RECOMMENDATIONS: * Per SNF: HT=63" TJ=883 lbs (vs EMR wt of 166lbs) -> obtain re-calibrated bedscale wt, rec daily wt monitoring * Wound healing: con't Nephrovite + Garo BID/ Vit C dosing per Nephro * Monitor renal fxn and lytes closely w/ non-renal TF - previously w/ multiple episodes of low K and phos - Check f/up phos (1. 0on 09/04) * Add probiotics and anti-diarrheal meds - prolonged diarrhea, +rectal tube (11) Uremia (12) CKD (chronic kidney disease) stage 5, GFR less than 15 ml/min (13) Colon distention Assessment & Plan: discussed with GI likely functional as having lots of loose bm rectal tube kub f/u s/p colonoscopy - findings reviewed with GI Marked distention of the sigmoid colon. 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 No evidence of bowel wall thickening or pneumatosis 12 mm focus of contrast enhancement in the right pectineus muscle. While nonspecific in appearance, appearance raises concern for a possible pseudoaneurysm. Ill- defined thickening of the pectus medius muscle could indicate some intramuscular hemorrhage. The above findings were phoned to Dr. Urias at the time of interpretation Large bilateral pleural effusions Hazy pulmonary parenchymal opacities as well as dense consolidative opacities most likely represent pulmonary edema, but could represent pneumonia Evidence of anasarca elsewhere, with generalized edema of the subcutaneous fat Bladder wall thickening, raises concern for cystitis. Avalos catheter in place Colonic diverticulosis. No evidence of diverticulitis. Tracheostomy Pacemaker Gastrostomy Jonathan Urias Sep 08, 2019 11:00
--- NOTE | 2019-09-08 11:30 | NUR ---
NURSE NOTES: BS of 157 noted. Novolog administered per protocol. VSS. No residual noted on TF. The patient is stable at this time. Will continue plan of care.
--- NOTE | 2019-09-08 13:00 | NUR ---
NURSE NOTES: The patient is resting on the bed without acute distress or shortness of breath. VSS. The patient is tolerating vent setting and TF well. Will closely monitor the patient. Will continue plan of care.
--- NOTE | 2019-09-08 13:21 | NUR ---
DISCHARGE PLANNING; NOTE 1015- F/U CALL PLACED TO [facility] [phone] PH S/W REMY CASE IS STILL BEING REVIEWED FOR ACCEPTANCE
--- NOTE | 2019-09-08 13:22 | NUR ---
CASE MANAGEMENT: REVIEW 09/08/2019 SI:SEPSIS. RESP FAILURE. VS: T 98.3 HR 77 RR 18 B/P 141/65 SATS 100% ON MECH VENT FIO2 24 LABS: WBC 17.4 IS:LIPITOR GT QHS LONITEN GT QD LOPRESSOR GTQ12H INSULIN ASPART GT Q12H SDU DCP: SNF PLAN OF CARE: DC PLANNING
--- NOTE | 2019-09-08 13:28 | NUR ---
INSURANCE AVAILABLE PROGRESS NOTES FOR 09/07 AND REVIEW FAXED TO ELIN ([employer]) REF# [id number] RUSSELLM:HARPER P:[phone] F:[phone]
--- NOTE | 2019-09-08 13:28 | General Progress Note ---
Assessment/Plan Assessment/Plan: IMPRESSION: 1. anemia. 2. GI bleed. 3. Leukocytosis. 4. Probable sepsis. + BCX 5. Acute on chronic renal failure. 6. Hyponatremia. 7. Severe protein-calorie malnutrition. 8. Significantly elevated C-reactive protein concerning for infectious etiology. 9. Tracheostomy, G-tube. 10. Ventilator dependence. 11. anasarca with bilateral pleural effusion 12. Hematuria PLAN needs placement care noted on vent surgical follow up monitor labs and adjust RX rate control ID follow up monitor renal function: HD prognosis poor impression, plan, and exam edited and reviewed in detail care discussed with RN Subjective Allergies: Coded Allergies: No Known Allergies (Unverified , 06/10/19) Subjective remains ill on vent on HD Objective Last 24 Hour Vital Signs Date Time Temp Pulse Resp B/P (MAP) Pulse Ox O2 Delivery O2 Flow Rate FiO2 09/08/19 13:00 76 15 24 09/08/19 12:00 Mechanical Ventilator 09/08/19 12:00 25 09/08/19 11:06 73 16 24 09/08/19 11:00 98.3 77 18 141/65 (90) 100 09/08/19 09:01 77 158/85 09/08/19 09:00 158/85 09/08/19 08:51 74 15 24 09/08/19 08:00 Mechanical Ventilator 09/08/19 08:00 25 09/08/19 08:00 78 09/08/19 07:30 98.2 77 18 111/51 (71) 100 09/08/19 07:02 77 16 24 09/08/19 05:57 75 17 24 09/08/19 04:00 99.1 73 18 153/83 (106) 100 09/08/19 04:00 Mechanical Ventilator 09/08/19 04:00 24 09/08/19 03:34 75 09/08/19 03:04 78 18 24 09/08/19 00:48 76 18 24 09/08/19 00:00 76 09/08/19 00:00 98.2 76 18 155/79 (104) 100 09/08/19 00:00 Mechanical Ventilator 09/07/19 23:06 73 17 24 09/07/19 21:24 75 143/73 09/07/19 21:12 73 16 24 7/30/20 20:00 Mechanical Ventilator 09/07/19 20:00 97.7 73 15 143/73 (96) 100 09/07/19 20:00 24 09/07/19 19:36 74 09/07/19 19:02 75 18 24 09/07/19 17:23 72 15 24 09/07/19 16:00 Mechanical Ventilator 09/07/19 16:00 24 09/07/19 16:00 98.1 74 15 154/74 (100) 100 09/07/19 16:00 73 09/07/19 15:06 74 15 24 09/07/19 14:22 175/65 Intake and Output 09/07/19 09/08/19 19:00 07:00 Intake Total 840 ml 560 ml Output Total 2030 ml Balance -1190 ml 560 ml Free Water 240 ml 60 ml Tube Feeding 600 ml 500 ml Stool Total 30 ml Hemodialysis UF 2000 ml # Voids 1 Laboratory Tests 09/07/19 16:00: Random Gentamicin Level 2.8 09/07/19 16:43: POC Whole Blood Glucose 152H 09/08/19 11:14: POC Whole Blood Glucose [Pending] Height (Feet): 5 Height (Inches): 10.00 Weight (Pounds): 165 Objective GENERAL: Ill-appearing male, chronically debilitated. HEENT: Tracheostomy in midline. Questionable fullness in the submandibular region. LUNGS: Coarse breath sounds. reduced breath sounds CARDIAC: S1, S2. Regular rate and rhythm. ABDOMEN: Soft. G-tube. EXTREMITIES: With noted edema. NEUROLOGICAL: Poorly responsive, weak diffusely. Kain Ramirez MD Sep 08, 2019 13:28
--- NOTE | 2019-09-08 15:00 | NUR ---
NURSE NOTES: Bed bath given to the patient. Tolerated well. Wound dressing done per order. Will continue plan of care.
[2019-09-08 15:30] VITALS: BP 138/67
--- NOTE | 2019-09-08 17:00 | NUR ---
NURSE NOTES: The patient is stable without acute distress or shortness of breath. Stable vital signs noted. Trach suction done and no distress noted. Tolerating TF and vent setting well. Will closely monitor the patient. Will continue plan of care.
--- NOTE | 2019-09-08 18:00 | NUR ---
NURSE NOTES: BS of 163 noted. Novolog administered per protocol. Will closely monitor the patient. Will continue plan of care.
--- NOTE | 2019-09-08 19:10 | NUR ---
HAND-OFF: Report given to TAMICA Jerez. The patient is stable at this time. Endorsed plan of care.
--- NOTE | 2019-09-08 19:14 | NUR ---
NURSE NOTES: Report received from TAMICA Yu. Observed pt lying in the bed, sleeping, arousable. V-paced, HR of 85. Trach to vent, Portex 8, AC 15/450/25%/5, tolerating current vent setting. GT intact, Vital AF 1.2 at 50cc/hr. Rectal tube intact. R subclevian permacath intact. IV on L FA 22G, TKO. Bed in the lowest position. Side rails up x3. Will continue to monitor.
[2019-09-08 20:00] VITALS: BP 140/69
[2019-09-08] MEDS: Dyna-Hex 2% Top Sol 2oz TOPIC SCH (20:33)
[2019-09-08] MEDS: Atorvastatin 20mg tab GT SCH (20:34)
[2019-09-08] MEDS: Epoetin Alfa-EPBX(ESRD on dialysis)10,000 unit/ml vial SUBQ SCH (21:26)
--- NOTE | 2019-09-08 21:47 | General Progress Note ---
Assessment/Plan Assessment/Plan: Assessment - colonoscopy negative to hepatic flexure - diarrhea - presumed TF related - abnormal LFT - Anemia - leukocytosis and thombocytosis - per heme - stool OB (+) - EGD --> gastritis - Renal failure - Sepsis / leukocytosis - Anasarca - resp failure, trach - dysphagia, GT - encephalopathy, contracted - poor px Recommendations - Continue TF - Elevate HOB - f/u Biopsies of colon --> negative - PPI - abx - supportive care Subjective Allergies: Coded Allergies: No Known Allergies (Unverified , 06/10/19) Subjective Above noted no events tolerating TF Objective Last 24 Hour Vital Signs Date Time Temp Pulse Resp B/P (MAP) Pulse Ox O2 Delivery O2 Flow Rate FiO2 09/08/19 20:39 79 18 24 09/08/19 20:34 79 140/69 09/08/19 20:00 98.2 78 18 140/69 (92) 100 09/08/19 20:00 79 09/08/19 20:00 25 09/08/19 20:00 Mechanical Ventilator 09/08/19 19:12 80 15 24 09/08/19 17:15 74 15 24 09/08/19 16:00 25 09/08/19 16:00 Mechanical Ventilator 09/08/19 16:00 74 09/08/19 15:30 98.4 76 18 138/67 (90) 100 09/08/19 15:20 79 17 24 09/08/19 13:00 76 15 24 09/08/19 12:00 Mechanical Ventilator 09/08/19 12:00 25 09/08/19 12:00 75 09/08/19 11:06 73 16 24 09/08/19 11:00 98.3 77 18 141/65 (90) 100 09/08/19 09:01 77 158/85 09/08/19 09:00 158/85 09/08/19 08:51 74 15 24 09/08/19 08:00 Mechanical Ventilator 09/08/19 08:00 25 09/08/19 08:00 78 09/08/19 07:30 98.2 77 18 111/51 (71) 100 09/08/19 07:02 77 16 24 09/08/19 05:57 75 17 24 09/08/19 04:00 99.1 73 18 153/83 (106) 100 09/08/19 04:00 Mechanical Ventilator 09/08/19 04:00 24 09/08/19 03:34 75 09/08/19 03:04 78 18 24 09/08/19 00:48 76 18 24 09/08/19 00:00 76 09/08/19 00:00 98.2 76 18 155/79 (104) 100 09/08/19 00:00 Mechanical Ventilator 09/07/19 23:06 73 17 24 Intake and Output 09/07/19 09/08/19 19:00 07:00 Intake Total 840 ml 660 ml Output Total 2030 ml Balance -1190 ml 660 ml Free Water 240 ml 110 ml Tube Feeding 600 ml 550 ml Stool Total 30 ml Hemodialysis UF 2000 ml # Voids 1 Laboratory Tests 09/08/19 11:14: POC Whole Blood Glucose [Pending] 09/08/19 17:35: POC Whole Blood Glucose 163H Height (Feet): 5 Height (Inches): 10.00 Weight (Pounds): 165 Objective Debilitated AA man NCAT (+) trach coarse BS RR abd distended, anasarca, (+) GT ext (+) edema contracted Ronny Mustafa MD Sep 08, 2019 21:47
[2019-09-09] VITALS (8 sets, daily range): BP systolic 115–268; BP diastolic 52–157
[2019-09-09] MEDS: NovoLOG Insulin Flexpen SUBQ SCH ×5 (00:15→23:47)
[2019-09-09] MEDS: Acetaminophen 650mg/20.3ml GT PRN (00:44)
--- NOTE | 2019-09-09 01:35 | NUR ---
RESPIRATORY NOTE: Patient started to desaturate and not getting volumes. Vent switched out changed settings from AC 15 to 18 Vt 450 to 550. Switched modes from Volume control plus to Volume control. Patient is stable so far will continue to monitor throughout.
--- NOTE | 2019-09-09 01:43 | Diagnostic Imaging Report ---
EXAM: XR Chest, 1 View CLINICAL HISTORY: SOB TECHNIQUE: Frontal view of the chest. COMPARISON: 09/05/19 FINDINGS: No change in position of support lines. Heterogeneous consolidation throughout the right lung is without significant change. Partially loculated right pleural effusion. No evidence of pneumothorax. Multiple age-indeterminate right rib fractures. Slight increase in heterogeneous and irregular consolidation in the left. Heart size is unchanged.
--- NOTE | 2019-09-09 02:20 | NUR ---
Pt having respiratory distress noted, labored at current vent setting, sat at 88-90. Noted high Peak pressure in 60s. BP 268/157, HR 90s, Vpaced. Noted pt diaphoretic. BS 166 noted. DIRECTOR EMERGENCY called, ABg and Chest Xray ordered. Tylenol prn and bp prn med given. Feeding on hold, no residual noted. Large amount of white thick sputume noted and suctioned. was notified regarding pt condition and abg result. New order received, vent setting changed to AC 18/550/25%/PEEP5. Ventilator was changed to new one per MD request. PRN BP one time dose given per order. After change of vent, Pt respiration became unlabored. BP of 126/57 noted. Will continue to monitor. Addendum: 09/09/19 at 0222 by Meri Quinones RN DIRECTOR EMERGENCY Note: DIRECTOR EMERGENCY was called at [[id number]] and notified . See DIRECTOR EMERGENCY documentation form for full report.
--- NOTE | 2019-09-09 05:24 | NUR ---
HAND-OFF: Report given to TAMICA Muhammad.
[2019-09-09] MEDS ORDERED: Heparin Sod 1000 units/ml 10ml IV PRN (06:00)
[2019-09-09] MEDS ORDERED: Heparin 1000 units/ml 1ml Vial INJ PRN (06:00)
[2019-09-09 06:11] LABS: HEMATOCRIT 25.9 % (42.0-52.0); HEMOGLOBIN 7.9 G/DL (14.2-18.0); MEAN CORPUSCULAR VOLUME 85 FL (80-99); PLATELET COUNT 422 K/UL (150-450); RED BLOOD COUNT 3.04 M/UL (4.70-6.10); RED CELL DISTRIBUTION WIDTH 18.1 % (11.6-14.8); WHITE BLOOD COUNT 21.9 K/UL (4.8-10.8)
--- NOTE | 2019-09-09 06:33 | NUR ---
NURSE NOTES: per , resume feeding. noted and will carry on.
[2019-09-09 06:36] LABS: ANION GAP 7 mmol/L (5-15); BLOOD UREA NITROGEN 72 mg/dL (7-18); CALCIUM 8.7 MG/DL (8.5-10.1); CARBON DIOXIDE 31 MMOL/L (21-32); CHLORIDE 101 MMOL/L (98-107); PHOSPHORUS 1.5 MG/DL (2.5-4.9); POTASSIUM 4.4 MMOL/L (3.5-5.1); SODIUM 139 MMOL/L (136-145)
--- NOTE | 2019-09-09 06:38 | NUR ---
NURSE NOTES: notified Dr. Campos regarding hbg 7.9 hct 25.9. will wait for call back.
--- NOTE | 2019-09-09 06:41 | NUR ---
NURSE NOTES: notified Dr. Ramirez regarding Ventricular-paced rhythm with occasional AV dual-paced complexes.will wait for call back.
--- NOTE | 2019-09-09 06:44 | NUR ---
NURSE NOTES: From Dr. Ramirez no new order for EKG result, Ventricular-paced rhythm with occasional AV dual-paced complexes.
--- NOTE | 2019-09-09 06:48 | NUR ---
NURSE NOTES: per Dr. Campos no new order for hbg 7.9 and hct 25.9.
--- NOTE | 2019-09-09 06:52 | NUR ---
NURSE NOTES: left voice mail to Dr. Lyle,regarding elevated WBC 21.9. will wait for call back
--- NOTE | 2019-09-09 07:30 | NUR ---
NURSE NOTES: Received report from Ana Davis RN. Patient is resting in bed, in stable condition. No s/sx of SOB, breathing is even and unlabored, vent settings as ordered. Patient is obtunded, observed no presence of pain or discomfort at this time. Patient noted with hemoglobin level of 7.9, per night nurse, Dr. Campos was made aware and no new orders were given. Bed is in lowest position, brakes engaged. Call light is kept within easy reach. Will continue to monitor patient.
--- NOTE | 2019-09-09 07:41 | NUR ---
HAND-OFF: Report given to Srinivas DAVEY., pt is stable condition, endorsed plan of care.
--- NOTE | 2019-09-09 07:43 | NUR ---
NURSE NOTES: Patient noted with previous ABG of pH 7.192, pCO2 90.8, pO2 213.1, HCO3 34.1, O2 Saturation 98. With new vent settings of AC 18, tidal volume 550, FiO2 24% with SpO2 of 100% no SOB noted. Contacted and informed Dr. Ramirez of assessments, inquired if they would like new ABG this morning. Dr. Ramirez acknowledged and ordered new ABG this AM, RT notified. Will continue to monitor patient.
--- NOTE | 2019-09-09 08:06 | NUR ---
NURSE NOTES: Contacted and informed. Dr. Ramirez of new ABG results of pH 7.585, pCO2 33.0, pO2 70.3, HCO3 30.6, O2 saturation 95.6. Current SpO2 100%, no SOB noted. Contacted and informed Dr. Ramirez of new assessments, acknowledged and ordered to change to AC 12, no ABG ordered. RT notified. Will continue to monitor patient.
[2019-09-09] MEDS: Minoxidil 2.5mg tab GT SCH (08:14)
[2019-09-09] MEDS: Metoprolol Tartrate 100mg tab GT SCH ×2 (08:14→21:33)
--- NOTE | 2019-09-09 09:09 | Surgery Progress Note ---
Surgery Progress Note Subjective Procedure Performed Right femoral temporary hemodialysis catheter removal Additional Comments No acute events Objective Last 24 Hour Vital Signs Date Time Temp Pulse Resp B/P (MAP) Pulse Ox O2 Delivery O2 Flow Rate FiO2 09/09/19 08:13 72 12 24 09/09/19 07:45 71 18 24 09/09/19 05:00 71 18 24 09/09/19 04:00 Mechanical Ventilator 09/09/19 04:00 97.5 95 18 115/54 (74) 100 09/09/19 04:00 72 09/09/19 04:00 25 09/09/19 02:33 79 18 24 09/09/19 02:24 97.8 95 18 126/57 (80) 100 09/09/19 01:47 245/127 09/09/19 01:36 96 30 90 09/09/19 01:28 87 18 24 09/09/19 01:00 98.2 78 18 268/157 (194) 100 09/09/19 00:44 166/110 09/09/19 00:00 Mechanical Ventilator 09/09/19 00:00 75 09/08/19 23:06 73 16 24 09/08/19 20:39 79 18 24 09/08/19 20:34 79 140/69 09/08/19 20:00 98.2 78 18 140/69 (92) 100 09/08/19 20:00 79 09/08/19 20:00 25 09/08/19 20:00 Mechanical Ventilator 09/08/19 19:12 80 15 24 09/08/19 17:15 74 15 24 09/08/19 16:00 25 09/08/19 16:00 Mechanical Ventilator 09/08/19 16:00 74 09/08/19 15:30 98.4 76 18 138/67 (90) 100 09/08/19 15:20 79 17 24 09/08/19 13:00 76 15 24 09/08/19 12:00 Mechanical Ventilator 09/08/19 12:00 25 09/08/19 12:00 75 09/08/19 11:06 73 16 24 09/08/19 11:00 98.3 77 18 141/65 (90) 100 I&O Intake and Output 09/08/19 09/09/19 19:00 07:00 Intake Total 700 ml 500 ml Output Total 50 ml 30 ml Balance 650 ml 470 ml Free Water 100 ml 100 ml Tube Feeding 600 ml 400 ml Stool Total 50 ml 30 ml # Voids 3 Dressing: saturated Cardiovascular: RSR Respiratory: decreased breath sounds Abdomen: soft, non-tender, present bowel sounds Extremities: no tenderness, no cyanosis Laboratory Tests Test 09/08/19 11:14 09/08/19 17:35 09/09/19 00:00 09/09/19 01:03 POC Whole Blood Glucose Pending 163 MG/DL (74-106) H 164 MG/DL (74-106) H Arterial Blood pH 7.192 (7.350-7.450) Arterial Blood Partial Pressure CO2 90.8 mmHg (35.0-45.0) *H Arterial Blood Partial Pressure O2 213.1 mmHg (75.0-100.0) H Arterial Blood HCO3 34.1 mmol/L (22.0-26.0) H Arterial Blood Oxygen Saturation 98.9 % (95-100) Arterial Blood Base Excess 3.8 (-2-2) H Benedict Test Positive Test 09/09/19 01:05 09/09/19 05:05 09/09/19 05:51 09/09/19 07:50 POC Whole Blood Glucose Pending 121 MG/DL (74-106) H White Blood Count 21.9 K/UL (4.8-10.8) H Red Blood Count 3.04 M/UL (4.70-6.10) L Hemoglobin 7.9 G/DL (14.2-18.0) L Hematocrit 25.9 % (42.0-52.0) L Mean Corpuscular Volume 85 FL (80-99) Mean Corpuscular Hemoglobin 26.0 PG (27.0-31.0) L Mean Corpuscular Hemoglobin Concent 30.5 G/DL (32.0-36.0) L Red Cell Distribution Width 18.1 % (11.6-14.8) H Platelet Count 422 K/UL (150-450) Mean Platelet Volume 6.0 FL (6.5-10.1) L Neutrophils (%) (Auto) % (45.0-75.0) Lymphocytes (%) (Auto) % (20.0-45.0) Monocytes (%) (Auto) % (1.0-10.0) Eosinophils (%) (Auto) % (0.0-3.0) Basophils (%) (Auto) % (0.0-2.0) Neutrophils % (Manual) Pending Lymphocytes % (Manual) Pending Platelet Estimate Pending Platelet Morphology Pending Sodium Level 139 MMOL/L (136-145) Potassium Level 4.4 MMOL/L (3.5-5.1) Chloride Level 101 MMOL/L (98-107) Carbon Dioxide Level 31 MMOL/L (21-32) Anion Gap 7 mmol/L (5-15) Blood Urea Nitrogen 72 mg/dL (7-18) H Creatinine 3.0 MG/DL (0.55-1.30) H Estimat Glomerular Filtration Rate 20.3 mL/min (>60) Glucose Level 123 MG/DL (74-106) H Calcium Level 8.7 MG/DL (8.5-10.1) Phosphorus Level 1.5 MG/DL (2.5-4.9) L Arterial Blood pH 7.585 (7.350-7.450) Arterial Blood Partial Pressure CO2 33.0 mmHg (35.0-45.0) L Arterial Blood Partial Pressure O2 70.3 mmHg (75.0-100.0) L Arterial Blood HCO3 30.6 mmol/L (22.0-26.0) H Arterial Blood Oxygen Saturation 95.6 % (95-100) Arterial Blood Base Excess 8.4 (-2-2) H Benedict Test Positive Plan Problems: (1) Anemia (2) Hyponatremia (3) Leukocytosis Assessment & Plan: Tracheostomy, left chest pacemaker are again demonstrated. There is bilateral interstitial and airspace disease and bilateral pleural fluid again demonstrated. This appears more severe than on the prior study. Bilateral interstitial and airspace infiltrates versus edema. Bilateral pleural effusions Leukocytosis, anemia, tachycardia, abnormal labs. Wound evaluated and likely etiology of patient's sepsis. Leukocytosis etiology work-up antibiotics per infectious disease Appreciate nephrology input transfuse with dialysis We will follow with recommendations thank you allowing participation's care plan HD access temp HD discussed with medical teams line okay HD as per renal persistent leukocytosis flow cyto noted improving trending down right fem line removed (4) Ventilator dependent (5) Right lower lobe pneumonia (6) Hypokalemia (7) Hyperkalemia (8) Anasarca (9) Decubitus skin ulcer Assessment & Plan: pt presented on admission with generalized edemae.Skin assessed under tracheostomy and no areas of concerns noted. GT Insertion is marginally erythematous with small amt slough at stoma. Unstageable Pressure Injury R elbow. Base of wound is 100% yellow slough, Borders are erythematous. Wound oozing small amt haemopurulent exudate.Darker skin tone without elevation in skin temp or erythema periwound. Pt's penis and scrotum are grossly edematous and enlarged and weeping serous exudate from numerous sites both from penis and scrotum. Two small open wounds noted at base of at base of shaft of penis ,and contreras aspect of scrotum. Both wounds oozing large amt sanguineous and serosanguineous exudate. Multiple open wounds with Biofilm at base of each wounds noted to contreras/lateral,inferior and posterior aspects of scrotum. These wounds noted to be oozing moderate amts of serosanguineous exudate. Hypertrophic scar with scattered areas of hyperpigmentation noted to Sacrum. DTPI noted to L Buttocks (L)7cm x (W)9cm. Base of wound is purple and indurated.Darker skin tone without erythema, induration or fluctuance R and L ischial tuberosities. Both heels are boggy with non-blanchable erythema. Tx.Plan: Cleanse wound R elbow with Saline. Apply TheraHoney, Apply Moisture Barrier Paste periwound. Cover with Optifoam drsg.Change Daily and prn. Wash GT site with soap and water.Pat dry. Apply Zinc Oxide Paste to GT site Daily. Leave Open to Air. Apply Zinc Oxide Paste to entire Scrotum, Place ABD pads to R and L lateral, and posterior aspects of scrotum TWICE daily. Apply Cavilon Skin Barrier to malleoli and both Heels. Cover each site with Optifoam drsgs. Change every 7 days and prn. Reposition at least every 2hours or as tolerated. Off-load heels with Pillows. APM/BECCA Mattress overlay. (10) Malnutrition Assessment & Plan: DAILY ESTIMATED NEEDS: Needs based on Renal, critical care, wound/ 61kg 22-30 kcals/kg [id number] total kcals 1.25-2 g protein/kg 76-122 g total protein Fluid per MD, now on HD NUTRITION DIAGNOSIS: * Swallowing difficulty R/T respiratory failure, dysphagia as evidenced by trach/vent dep, PEG dep * Increased kcal/prot needs R/T wound healing as evidenced by admitted w/ multiple pressure injuries including full thickness wounds at junction of Shaft of penis, dorsal scrotum, R elbow, and DTPI @ L buttocks. CURRENT TF:Vital AF 1.2 @ 50ml/hr x 24 hrs + Garo BID ENTERAL NUTRITION RECOMMENDATIONS: Vital AF 1.2 @ 50ml/hr x 24 hrs to provide 1200ml, 1440kcal,9 0g prot, 973ml free water * Maintain elemental TF of Vital AF 1.2 w/ continued diarrhea -> monitor lytes and renal fxn closely, monitor need for renal T -> TF @ goal will provide 1642mg K and 2025mg Phos * HOB over 30 degrees/ water flush per MD * Continue Garo BID via PEG ADDITIONAL RECOMMENDATIONS: * Per SNF: HT=63" QX=626 lbs (vs EMR wt of 166lbs) -> obtain re-calibrated bedscale wt, rec daily wt monitoring * Wound healing: con't Nephrovite + Garo BID/ Vit C dosing per Nephro * Monitor renal fxn and lytes closely w/ non-renal TF - previously w/ multiple episodes of low K and phos - Check f/up phos (1. 0on 09/04) * Add probiotics and anti-diarrheal meds - prolonged diarrhea, +rectal tube (11) Uremia (12) CKD (chronic kidney disease) stage 5, GFR less than 15 ml/min (13) Colon distention Assessment & Plan: discussed with GI likely functional as having lots of loose bm rectal tube kub f/u s/p colonoscopy - findings reviewed with GI Marked distention of the sigmoid colon. 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 No evidence of bowel wall thickening or pneumatosis 12 mm focus of contrast enhancement in the right pectineus muscle. While nonspecific in appearance, appearance raises concern for a possible pseudoaneurysm. Ill- defined thickening of the pectus medius muscle could indicate some intramuscular hemorrhage. The above findings were phoned to Dr. Urias at the time of interpretation Large bilateral pleural effusions Hazy pulmonary parenchymal opacities as well as dense consolidative opacities most likely represent pulmonary edema, but could represent pneumonia Evidence of anasarca elsewhere, with generalized edema of the subcutaneous fat Bladder wall thickening, raises concern for cystitis. Avalos catheter in place Colonic diverticulosis. No evidence of diverticulitis. Tracheostomy Pacemaker Gastrostomy Jonathan Urias Sep 09, 2019 09:09
[2019-09-09] MEDS: Zinc Oxide Oint 2oz TOPIC SCH ×2 (10:52→18:13)
--- NOTE | 2019-09-09 11:43 | NUR ---
CASE MANAGEMENT: REVIEW 09/09/2019 SI:SEPSIS. RESP FAILURE. VS: T 98.2 HR 67 RR 18 B/P 142/71 SATS 100% ON MECH VENT FIO2 25 LABS: WBC 21.9 HGB 7.9 HCT 25.9 BUN 72 CR 3 GLU 123 PHOS 1.5 ABGs PH 7.585 PCO2 33 PO2 70.3 HCO3 30.6 BE 8.4 IS:LIPITOR GT QHS LONITEN GT QD LOPRESSOR GTQ12H INSULIN ASPART GT Q12H SDU DCP: SNF
--- NOTE | 2019-09-09 12:01 | Nephrology Progress Note ---
Assessment/Plan Plan Sepsis - IV Abx Established ESRD - HD now TTS. DW HD RN. Extreme hypophosphtemia despite ESRD signifying severe malnutrition. Subjective Subjective Obtunded. On HD now. Stable run. Objective Objective Last 24 Hour Vital Signs Date Time Temp Pulse Resp B/P (MAP) Pulse Ox O2 Delivery O2 Flow Rate FiO2 09/09/19 08:13 72 12 24 09/09/19 08:00 Mechanical Ventilator 09/09/19 08:00 71 09/09/19 08:00 25 09/09/19 08:00 98.2 67 18 142/71 (94) 100 09/09/19 07:45 71 18 24 09/09/19 05:00 71 18 24 09/09/19 04:00 Mechanical Ventilator 09/09/19 04:00 97.5 95 18 115/54 (74) 100 09/09/19 04:00 72 09/09/19 04:00 25 09/09/19 02:33 79 18 24 09/09/19 02:24 97.8 95 18 126/57 (80) 100 09/09/19 01:47 245/127 09/09/19 01:36 96 30 90 09/09/19 01:28 87 18 24 09/09/19 01:00 98.2 78 18 268/157 (194) 100 09/09/19 00:44 166/110 09/09/19 00:00 Mechanical Ventilator 09/09/19 00:00 75 09/08/19 23:06 73 16 24 09/08/19 20:39 79 18 24 09/08/19 20:34 79 140/69 09/08/19 20:00 98.2 78 18 140/69 (92) 100 09/08/19 20:00 79 09/08/19 20:00 25 09/08/19 20:00 Mechanical Ventilator 09/08/19 19:12 80 15 24 09/08/19 17:15 74 15 24 09/08/19 16:00 25 09/08/19 16:00 Mechanical Ventilator 09/08/19 16:00 74 09/08/19 15:30 98.4 76 18 138/67 (90) 100 09/08/19 15:20 79 17 24 09/08/19 13:00 76 15 24 Intake and Output 09/08/19 09/09/19 19:00 07:00 Intake Total 700 ml 500 ml Output Total 50 ml 30 ml Balance 650 ml 470 ml Free Water 100 ml 100 ml Tube Feeding 600 ml 400 ml Stool Total 50 ml 30 ml # Voids 3 Laboratory Tests 09/08/19 17:35: POC Whole Blood Glucose 163H 09/09/19 00:00: POC Whole Blood Glucose 164H 09/09/19 01:03: Arterial Blood pH 7.192*L, Arterial Blood Partial Pressure CO2 90.8*H, Arterial Blood Partial Pressure O2 213.1H, Arterial Blood HCO3 34.1H, Arterial Blood Oxygen Saturation 98.9, Arterial Blood Base Excess 3.8H, Benedict Test Positive 09/09/19 01:05: POC Whole Blood Glucose [Pending] 09/09/19 05:05: White Blood Count 21.9H, Red Blood Count 3.04L, Hemoglobin 7.9L, Hematocrit 25.9L, Mean Corpuscular Volume 85, Mean Corpuscular Hemoglobin 26.0L, Mean Corpuscular Hemoglobin Concent 30.5L, Red Cell Distribution Width 18.1H, Platelet Count 422, Mean Platelet Volume 6.0L, Neutrophils (%) (Auto) , Lymphocytes (%) (Auto) , Monocytes (%) (Auto) , Eosinophils (%) (Auto) , Basophils (%) (Auto) , Differential Total Cells Counted 100, Neutrophils % ( Manual) 79H, Lymphocytes % (Manual) 14L, Monocytes % (Manual) 3, Eosinophils % ( Manual) 2, Basophils % (Manual) 2, Band Neutrophils 0, Nucleated Red Blood Cells 1, Platelet Estimate Adequate, Platelet Morphology Normal, Hypochromasia 3 +, Anisocytosis 2+, Sodium Level 139, Potassium Level 4.4, Chloride Level 101, Carbon Dioxide Level 31, Anion Gap 7, Blood Urea Nitrogen 72H, Creatinine 3.0H, Estimat Glomerular Filtration Rate 20.3, Glucose Level 123H, Calcium Level 8.7, Phosphorus Level 1.5L 09/09/19 05:51: POC Whole Blood Glucose 121H 09/09/19 07:50: Arterial Blood pH 7.585*H, Arterial Blood Partial Pressure CO2 33.0L, Arterial Blood Partial Pressure O2 70.3L, Arterial Blood HCO3 30.6H, Arterial Blood Oxygen Saturation 95.6, Arterial Blood Base Excess 8.4H, Benedict Test Positive 09/09/19 11:50: POC Whole Blood Glucose 127H Height (Feet): 5 Height (Inches): 10.00 Weight (Pounds): 164 Objective CV RR Trach clean Lungs CTA New Perma Cath RIJ. Old Femoral Rancho still in Rt. Groin! Abd SNT. BS + E No CCE Erica Pichardo MD Sep 09, 2019 12:01
--- NOTE | 2019-09-09 12:50 | CDS Physician Query ---
Clarification is required for compliance, coding accuracy, and to reflect severity of illness for this patient Dear Dr. Kain Ramirez Date: 09/09/2019 Fourth Mate/CDS Name: Mayra Estrella Clinical Documentation states: HNP: REASON FOR ADMISSION: Sepsis, acute on chronic renal failure, profound anemia...This is a 79-year-old male, who presents with abnormal labs. The patient is comatose, ventilator dependent, unable to give any history at this time. 09/07 ID note: klebsiella catheter infection s/p removal 08/31 Culture catheter tip From right femoral rancho catheter - K. Pneumoniae Clarification is needed for one (or more) of the following conditions in order to accurately assign the "present on admission' indicator. Please choose the answer that best indicates whether the associated condition was present at the time of the order for inpatient admission. Thank you. Was the Femoral Rancho Catheter Infection Present on admission? [] YES [x] NO [] Clinically Undeterminable [] Unknown Physician signature Date Please also document in your Progress Notes and/or Discharge Summary and indicate if the condition was present on admission. SHERWIND
--- NOTE | 2019-09-09 13:45 | General Progress Note ---
Assessment/Plan Assessment/Plan: IMPRESSION: 1. anemia. 2. GI bleed. 3. Leukocytosis. 4. Probable sepsis. + BCX 5. Acute on chronic renal failure. 6. Hyponatremia. 7. Severe protein-calorie malnutrition. 8. Significantly elevated C-reactive protein concerning for infectious etiology. 9. Tracheostomy, G-tube. 10. Ventilator dependence. 11. anasarca with bilateral pleural effusion 12. Hematuria PLAN needs placement care noted on vent/ adjusted and stable surgical follow up monitor labs and adjust RX rate control ID follow up monitor renal function: HD prognosis poor impression, plan, and exam edited and reviewed in detail care discussed with RN Subjective Allergies: Coded Allergies: No Known Allergies (Unverified , 06/10/19) Subjective remains ill on vent on HD had issues with vent and now improved Objective Last 24 Hour Vital Signs Date Time Temp Pulse Resp B/P (MAP) Pulse Ox O2 Delivery O2 Flow Rate FiO2 09/09/19 12:00 24 09/09/19 12:00 98.2 62 12 165/69 (101) 100 09/09/19 12:00 Mechanical Ventilator 09/09/19 11:30 68 12 24 09/09/19 08:13 72 12 24 09/09/19 08:00 Mechanical Ventilator 09/09/19 08:00 24 09/09/19 08:00 71 09/09/19 08:00 98.2 67 18 142/71 (94) 100 09/09/19 07:45 71 18 24 09/09/19 05:00 71 18 24 09/09/19 04:00 Mechanical Ventilator 09/09/19 04:00 97.5 95 18 115/54 (74) 100 09/09/19 04:00 72 09/09/19 04:00 25 09/09/19 02:33 79 18 24 09/09/19 02:24 97.8 95 18 126/57 (80) 100 09/09/19 01:47 245/127 09/09/19 01:36 96 30 90 09/09/19 01:28 87 18 24 09/09/19 01:00 98.2 78 18 268/157 (194) 100 09/09/19 00:44 166/110 09/09/19 00:00 Mechanical Ventilator 09/09/19 00:00 75 09/08/19 23:06 73 16 24 09/08/19 20:39 79 18 24 09/08/19 20:34 79 140/69 09/08/19 20:00 98.2 78 18 140/69 (92) 100 09/08/19 20:00 79 09/08/19 20:00 25 09/08/19 20:00 Mechanical Ventilator 09/08/19 19:12 80 15 24 09/08/19 17:15 74 15 24 09/08/19 16:00 25 09/08/19 16:00 Mechanical Ventilator 09/08/19 16:00 74 09/08/19 15:30 98.4 76 18 138/67 (90) 100 09/08/19 15:20 79 17 24 Intake and Output 09/08/19 09/09/19 19:00 07:00 Intake Total 700 ml 500 ml Output Total 50 ml 30 ml Balance 650 ml 470 ml Free Water 100 ml 100 ml Tube Feeding 600 ml 400 ml Stool Total 50 ml 30 ml # Voids 3 Laboratory Tests 09/08/19 17:35: POC Whole Blood Glucose 163H 09/09/19 00:00: POC Whole Blood Glucose 164H 09/09/19 01:03: Arterial Blood pH 7.192*L, Arterial Blood Partial Pressure CO2 90.8*H, Arterial Blood Partial Pressure O2 213.1H, Arterial Blood HCO3 34.1H, Arterial Blood Oxygen Saturation 98.9, Arterial Blood Base Excess 3.8H, Benedict Test Positive 09/09/19 01:05: POC Whole Blood Glucose [Pending] 09/09/19 05:05: White Blood Count 21.9H, Red Blood Count 3.04L, Hemoglobin 7.9L, Hematocrit 25.9L, Mean Corpuscular Volume 85, Mean Corpuscular Hemoglobin 26.0L, Mean Corpuscular Hemoglobin Concent 30.5L, Red Cell Distribution Width 18.1H, Platelet Count 422, Mean Platelet Volume 6.0L, Neutrophils (%) (Auto) , Lymphocytes (%) (Auto) , Monocytes (%) (Auto) , Eosinophils (%) (Auto) , Basophils (%) (Auto) , Differential Total Cells Counted 100, Neutrophils % ( Manual) 79H, Lymphocytes % (Manual) 14L, Monocytes % (Manual) 3, Eosinophils % ( Manual) 2, Basophils % (Manual) 2, Band Neutrophils 0, Nucleated Red Blood Cells 1, Platelet Estimate Adequate, Platelet Morphology Normal, Hypochromasia 3 +, Anisocytosis 2+, Sodium Level 139, Potassium Level 4.4, Chloride Level 101, Carbon Dioxide Level 31, Anion Gap 7, Blood Urea Nitrogen 72H, Creatinine 3.0H, Estimat Glomerular Filtration Rate 20.3, Glucose Level 123H, Calcium Level 8.7, Phosphorus Level 1.5L 09/09/19 05:51: POC Whole Blood Glucose 121H 09/09/19 07:50: Arterial Blood pH 7.585*H, Arterial Blood Partial Pressure CO2 33.0L, Arterial Blood Partial Pressure O2 70.3L, Arterial Blood HCO3 30.6H, Arterial Blood Oxygen Saturation 95.6, Arterial Blood Base Excess 8.4H, Benedict Test Positive 09/09/19 11:50: POC Whole Blood Glucose 127H Height (Feet): 5 Height (Inches): 10.00 Weight (Pounds): 164 Objective GENERAL: Ill-appearing male, chronically debilitated. HEENT: Tracheostomy in midline. Questionable fullness in the submandibular region. LUNGS: Coarse breath sounds. reduced breath sounds CARDIAC: S1, S2. Regular rate and rhythm. ABDOMEN: Soft. G-tube. EXTREMITIES: With noted edema. NEUROLOGICAL: Poorly responsive, weak diffusely. Kain Ramirez MD Sep 09, 2019 13:45
[2019-09-09] MEDS ORDERED: Sodium Phosphate 30 MM in NS 275 ML IVPB ONE (14:00)
--- NOTE | 2019-09-09 15:31 | General Progress Note ---
Assessment/Plan Assessment/Plan: Assessment - colonoscopy negative to hepatic flexure - diarrhea - presumed TF related - abnormal LFT - Anemia - leukocytosis and thombocytosis - per heme - stool OB (+) - EGD --> gastritis - Renal failure - Sepsis / leukocytosis - Anasarca - resp failure, trach - dysphagia, GT - encephalopathy, contracted - poor px Recommendations - Continue TF - Elevate HOB - f/u Biopsies of colon --> negative - PPI - abx - supportive care Subjective Allergies: Coded Allergies: No Known Allergies (Unverified , 06/10/19) Subjective Above noted no events tolerating TF Objective Last 24 Hour Vital Signs Date Time Temp Pulse Resp B/P (MAP) Pulse Ox O2 Delivery O2 Flow Rate FiO2 09/09/19 12:00 24 09/09/19 12:00 63 09/09/19 12:00 98.2 62 12 165/69 (101) 100 09/09/19 12:00 Mechanical Ventilator 09/09/19 11:30 68 12 24 09/09/19 08:13 72 12 24 09/09/19 08:00 Mechanical Ventilator 09/09/19 08:00 24 09/09/19 08:00 71 09/09/19 08:00 98.2 67 18 142/71 (94) 100 09/09/19 07:45 71 18 24 09/09/19 05:00 71 18 24 09/09/19 04:00 Mechanical Ventilator 09/09/19 04:00 97.5 95 18 115/54 (74) 100 09/09/19 04:00 72 09/09/19 04:00 25 09/09/19 02:33 79 18 24 09/09/19 02:24 97.8 95 18 126/57 (80) 100 09/09/19 01:47 245/127 09/09/19 01:36 96 30 90 09/09/19 01:28 87 18 24 09/09/19 01:00 98.2 78 18 268/157 (194) 100 09/09/19 00:44 166/110 09/09/19 00:00 Mechanical Ventilator 09/09/19 00:00 75 09/08/19 23:06 73 16 24 09/08/19 20:39 79 18 24 09/08/19 20:34 79 140/69 7/31/20 20:00 98.2 78 18 140/69 (92) 100 09/08/19 20:00 79 09/08/19 20:00 25 09/08/19 20:00 Mechanical Ventilator 09/08/19 19:12 80 15 24 09/08/19 17:15 74 15 24 09/08/19 16:00 25 09/08/19 16:00 Mechanical Ventilator 09/08/19 16:00 74 Intake and Output 09/08/19 09/09/19 19:00 07:00 Intake Total 700 ml 500 ml Output Total 50 ml 30 ml Balance 650 ml 470 ml Free Water 100 ml 100 ml Tube Feeding 600 ml 400 ml Stool Total 50 ml 30 ml # Voids 3 Laboratory Tests 09/08/19 17:35: POC Whole Blood Glucose 163H 09/09/19 00:00: POC Whole Blood Glucose 164H 09/09/19 01:03: Arterial Blood pH 7.192*L, Arterial Blood Partial Pressure CO2 90.8*H, Arterial Blood Partial Pressure O2 213.1H, Arterial Blood HCO3 34.1H, Arterial Blood Oxygen Saturation 98.9, Arterial Blood Base Excess 3.8H, Benedict Test Positive 09/09/19 01:05: POC Whole Blood Glucose [Pending] 09/09/19 05:05: White Blood Count 21.9H, Red Blood Count 3.04L, Hemoglobin 7.9L, Hematocrit 25.9L, Mean Corpuscular Volume 85, Mean Corpuscular Hemoglobin 26.0L, Mean Corpuscular Hemoglobin Concent 30.5L, Red Cell Distribution Width 18.1H, Platelet Count 422, Mean Platelet Volume 6.0L, Neutrophils (%) (Auto) , Lymphocytes (%) (Auto) , Monocytes (%) (Auto) , Eosinophils (%) (Auto) , Basophils (%) (Auto) , Differential Total Cells Counted 100, Neutrophils % ( Manual) 79H, Lymphocytes % (Manual) 14L, Monocytes % (Manual) 3, Eosinophils % ( Manual) 2, Basophils % (Manual) 2, Band Neutrophils 0, Nucleated Red Blood Cells 1, Platelet Estimate Adequate, Platelet Morphology Normal, Hypochromasia 3 +, Anisocytosis 2+, Sodium Level 139, Potassium Level 4.4, Chloride Level 101, Carbon Dioxide Level 31, Anion Gap 7, Blood Urea Nitrogen 72H, Creatinine 3.0H, Estimat Glomerular Filtration Rate 20.3, Glucose Level 123H, Calcium Level 8.7, Phosphorus Level 1.5L 09/09/19 05:51: POC Whole Blood Glucose 121H 09/09/19 07:50: Arterial Blood pH 7.585*H, Arterial Blood Partial Pressure CO2 33.0L, Arterial Blood Partial Pressure O2 70.3L, Arterial Blood HCO3 30.6H, Arterial Blood Oxygen Saturation 95.6, Arterial Blood Base Excess 8.4H, Benedict Test Positive 09/09/19 11:50: POC Whole Blood Glucose 127H Height (Feet): 5 Height (Inches): 10.00 Weight (Pounds): 164 Objective Debilitated AA man NCAT (+) trach coarse BS RR abd distended, anasarca, (+) GT ext (+) edema contracted Ronny Mustafa MD Sep 09, 2019 15:31
--- NOTE | 2019-09-09 19:30 | NUR ---
HAND-OFF: Report given to TAMICA Worley.
--- NOTE | 2019-09-09 19:35 | NUR ---
NURSE NOTES: Received patient's report from TAMICA Espino. Pt is laying on bed, obtunded. No s/s of respiratory distress noted. SpO2 100%, HR 74 at this moment. Pt is on vent, AC 12, Vt 550, FiO2 24%, PEEP 5. Rectal tube brown greenish color stool noted. IV site, patent and clean noted. Call-light within reach. Bed is low and locked. Will continue to monitor with plan of care.
[2019-09-09] MEDS: Atorvastatin 20mg tab GT SCH (21:33)
[2019-09-09] MEDS: Dyna-Hex 2% Top Sol 2oz TOPIC SCH (21:33)
[2019-09-10] VITALS (7 sets, daily range): BP systolic 126–178; BP diastolic 55–82
--- NOTE | 2019-09-10 04:40 | NUR ---
NURSE NOTES: Patient's BP is high SBP>170-190, Clonidine PRN med is given.
[2019-09-10] MEDS: NovoLOG Insulin Flexpen SUBQ SCH ×3 (05:51→17:09)
--- NOTE | 2019-09-10 05:54 | NUR ---
NURSE NOTES: Pt's BP went down to 129/57, HR 67.
--- NOTE | 2019-09-10 07:10 | NUR ---
NURSE NOTES: received patient report from farzana wright. patient is on bed asleep. on vent at prescribed rate. no acute events, no arrythmias last night. noted to be obtunded. wound care per order. on Gtube running. bed is low and locked for safety, will follow plan of care.
--- NOTE | 2019-09-10 07:35 | NUR ---
HAND-OFF: Report given to TAMICA Olvera.
[2019-09-10] MEDS: Metoprolol Tartrate 100mg tab GT SCH ×2 (08:20→20:25)
[2019-09-10] MEDS: Minoxidil 2.5mg tab GT SCH (08:21)
[2019-09-10] MEDS: Zinc Oxide Oint 2oz TOPIC SCH ×2 (08:22→17:08)
[2019-09-10] MEDS ORDERED: GENTAMICIN IVPB ONE (10:00)
[2019-09-10] MEDS ORDERED: NS IVPB ONE (10:00)
--- NOTE | 2019-09-10 10:58 | General Progress Note ---
Assessment/Plan Assessment/Plan: IMPRESSION: 1. anemia. 2. GI bleed. 3. Leukocytosis. 4. Probable sepsis. + BCX 5. Acute on chronic renal failure. 6. Hyponatremia. 7. Severe protein-calorie malnutrition. 8. Significantly elevated C-reactive protein concerning for infectious etiology. 9. Tracheostomy, G-tube. 10. Ventilator dependence. 11. anasarca with bilateral pleural effusion 12. Hematuria 13. V pacing PLAN needs placement may need transfusion wbc again rising; d/w ID care noted on vent/ adjusted and stable surgical follow up monitor labs and adjust RX rate control ID follow up monitor renal function: HD prognosis poor impression, plan, and exam edited and reviewed in detail care discussed with RN Subjective Allergies: Coded Allergies: No Known Allergies (Unverified , 06/10/19) Subjective remains ill on vent on HD had issues with vent and now improved Objective Last 24 Hour Vital Signs Date Time Temp Pulse Resp B/P (MAP) Pulse Ox O2 Delivery O2 Flow Rate FiO2 09/10/19 10:48 65 09/10/19 08:21 138/67 09/10/19 08:20 68 138/67 09/10/19 08:15 97.9 68 12 138/67 (90) 100 09/10/19 08:00 24 09/10/19 08:00 Mechanical Ventilator 09/10/19 07:10 68 12 24 09/10/19 05:52 66 12 129/57 (81) 98 09/10/19 04:59 68 12 24 09/10/19 04:26 178/74 09/10/19 04:00 24 09/10/19 04:00 Mechanical Ventilator 09/10/19 04:00 97.7 70 13 178/74 (108) 100 09/10/19 03:31 67 09/10/19 03:01 72 12 24 09/10/19 00:44 68 12 24 09/10/19 00:00 Mechanical Ventilator 09/10/19 00:00 68 09/10/19 00:00 99.0 68 12 148/69 (95) 100 09/09/19 22:32 69 12 24 09/09/19 21:33 73 150/52 09/09/19 21:22 70 12 24 09/09/19 20:00 24 09/09/19 20:00 98.2 73 12 150/52 (84) 100 09/09/19 20:00 72 09/09/19 20:00 Mechanical Ventilator 09/09/19 19:10 68 14 24 09/09/19 17:10 69 12 24 09/09/19 16:00 98.1 94 12 154/59 (90) 100 09/09/19 16:00 Mechanical Ventilator 09/09/19 16:00 70 09/09/19 15:19 72 12 24 09/09/19 13:20 69 12 24 09/09/19 12:00 24 09/09/19 12:00 63 09/09/19 12:00 98.2 62 12 165/69 (101) 100 09/09/19 12:00 Mechanical Ventilator 09/09/19 11:30 68 12 24 Intake and Output 09/09/19 09/10/19 19:00 07:00 Intake Total 800 ml 660 ml Output Total 2100 ml 0 ml Balance -1300 ml 660 ml Free Water 200 ml 60 ml Tube Feeding 600 ml 600 ml Stool Total 100 ml 0 ml Hemodialysis UF 2000 ml Laboratory Tests 09/09/19 11:50: POC Whole Blood Glucose 127H 09/09/19 17:12: POC Whole Blood Glucose 155H 09/10/19 03:31: Random Gentamicin Level 1.0 Height (Feet): 5 Height (Inches): 10.00 Weight (Pounds): 161 Objective GENERAL: Ill-appearing male, chronically debilitated. HEENT: Tracheostomy in midline. Questionable fullness in the submandibular region. LUNGS: Coarse breath sounds. reduced breath sounds CARDIAC: S1, S2. Regular rate and rhythm. ABDOMEN: Soft. G-tube. EXTREMITIES: With noted edema. NEUROLOGICAL: Poorly responsive, weak diffusely. Kain Ramirez MD Sep 10, 2019 10:58
--- NOTE | 2019-09-10 12:26 | Infectious Diseases Prog Note ---
Assessment/Plan Assessment/Plan A: 1. Pneumonia with Klebsiella, pseudomonas & Providencia COVID19 X2 : negative 2. Renal failure, ESRD 3. Leukocytosis improving 4. Respiratory failure, Ventilator dependent 5. Anemia 6. Anasarca 7. 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 Klebsiella catheter infection s/p removal PLAN: 1. Continue Gentamicin X 2 days Subjective ROS Limited/Unobtainable: Yes Constitutional: Denies: fever Allergies: Coded Allergies: No Known Allergies (Unverified , 06/10/19) Objective Last 24 Hour Vital Signs Date Time Temp Pulse Resp B/P (MAP) Pulse Ox O2 Delivery O2 Flow Rate FiO2 09/10/19 12:00 66 09/10/19 12:00 24 09/10/19 10:48 65 09/10/19 08:21 138/67 09/10/19 08:20 68 138/67 09/10/19 08:15 97.9 68 12 138/67 (90) 100 09/10/19 08:00 24 09/10/19 08:00 Mechanical Ventilator 09/10/19 07:10 68 12 24 09/10/19 05:52 66 12 129/57 (81) 98 09/10/19 04:59 68 12 24 09/10/19 04:26 178/74 09/10/19 04:00 24 09/10/19 04:00 Mechanical Ventilator 09/10/19 04:00 97.7 70 13 178/74 (108) 100 09/10/19 03:31 67 09/10/19 03:01 72 12 24 09/10/19 00:44 68 12 24 09/10/19 00:00 Mechanical Ventilator 09/10/19 00:00 68 09/10/19 00:00 99.0 68 12 148/69 (95) 100 09/09/19 22:32 69 12 24 09/09/19 21:33 73 150/52 09/09/19 21:22 70 12 24 09/09/19 20:00 24 09/09/19 20:00 98.2 73 12 150/52 (84) 100 09/09/19 20:00 72 09/09/19 20:00 Mechanical Ventilator 09/09/19 19:10 68 14 24 09/09/19 17:10 69 12 24 09/09/19 16:00 98.1 94 12 154/59 (90) 100 09/09/19 16:00 Mechanical Ventilator 09/09/19 16:00 70 09/09/19 15:19 72 12 24 09/09/19 13:20 69 12 24 Height (Feet): 5 Height (Inches): 10.00 Weight (Pounds): 161 HEENT: status post trach Respiratory/Chest: lungs clear, other - on ventilator Cardiovascular: normal rate, other - R permacath Extremities: no edema Skin: ulcers Neurologic/Psychiatric: other - opens eyes Laboratory Tests Test 09/09/19 17:12 09/10/19 03:31 09/10/19 11:56 POC Whole Blood Glucose 155 MG/DL (74-106) H 135 MG/DL (74-106) H Random Gentamicin Level 1.0 ug/mL Current Medications Medications (Trade) Dose Ordered Sig/Leonel Route PRN Reason Start Time Stop Time Status Last Admin Dose Admin Acetaminophen (Tylenol) 650 mg Q4H PRN GT Mild Pain (Pain Scale 1-3) 09/09/19 00:45 10/09/19 00:44 09/09/19 00:44 Atorvastatin Calcium (Lipitor) 40 mg BEDTIME GT 08/09/19 21:00 11/07/19 20:59 09/09/19 21:33 Chlorhexidine Gluconate (Felipa-Hex 2%) 1 applic DAILY@1999 TOPIC 08/15/19 20:00 11/13/19 19:59 09/09/19 21:33 Clonidine HCl (Catapres Tab) 0.1 mg Q4H PRN GT For High Blood Pressure 09/09/19 12:30 12/08/19 05:29 09/10/19 04:26 Dextrose (Dextrose 50%) 25 ml Q30M PRN IV Hypoglycemia 08/09/19 07:30 11/07/19 07:29 Dextrose (Dextrose 50%) 50 ml Q30M PRN IV Hypoglycemia 08/09/19 07:30 11/07/19 07:29 Epoetin Andreas (Epoetin Andreas(ESRD on dialysis)) 10,000 unit WED-WED-WED SUBQ 08/18/19 21:00 11/16/19 20:59 09/08/19 21:26 Famotidine (Pepcid) 20 mg DAILY GT 08/30/19 09:00 11/28/19 08:59 09/10/19 08:21 Gentamicin Protocol (Gentamicin pharmacy to dose) 1 ea DAILY PRN MISC PER RX PROTOCOL 09/06/19 11:00 09/12/19 23:59 Insulin Aspart (NovoLOG) Q6HR SUBQ 08/10/19 00:00 11/07/19 11:29 09/10/19 05:51 Metoprolol Tartrate (Lopressor) 200 mg Q12HR GT 08/09/19 09:00 11/07/19 08:59 09/10/19 08:20 Minoxidil (Loniten) 5 mg DAILY GT 08/09/19 09:00 11/07/19 08:59 09/10/19 08:21 Zinc Oxide (Zinc Oxide) 1 applic BID TOPIC 08/10/19 18:00 11/08/19 17:59 09/10/19 08:22 Real De Leon MD Sep 10, 2019 12:26
--- NOTE | 2019-09-10 12:27 | Hematology/Onc Progress Note ---
Assessment/Plan Assessment/Plan Assessment/recs # Leukocytosis - with multiple infections, VRE UTI, flow is negative --> wbc trend 33-->28-->25->23->22->23->24->17.3-->17-->14->16-->15.6-->14-->14- >13->19->18->17->22 --> on abx, linezolid and zosyn--> zosyn-->off --> + blood cultures with coag neg staph likely contaminated --> as per id recs --> has ordered a flow cytometry (with pathology) --> does show increased nK cell activity --> JOURDAN 2 and bcr-abl labs ordered (these are send outs) --> plt 585-->613-->649-->669->663 # Anemia due to chronic disease/kidney disease as well, gi bleed + occult + noted --> was on iron in the past, now on hold --> has been started on Epogen sq --> as per renal care --> egd done and shows gastritis --> on ppi --> egd showed gastritis, colo recently done --> hgb 9-->8.7-->7.6-->9.2-->8.9-->9.2->9.3-->8.8->9.9-->9.2-->8.1-->8.7-->7.9 # Respiratory failure --> per pulm, s/p trach --> COVID 19 test negative x 2 # Dysphagia s/p gtube with nepro --> per gi # ESRD with r fem julito --> hd as per renal # Dvt ppx scds Appreciate consultation and dw Rn Subjective Cardiovascular: Denies: no symptoms, chest pain, edema, irregular heart rate, lightheadedness, palpitations, syncope, other Respiratory: Denies: no symptoms, cough, shortness of breath, SOB with excertion, SOB at rest, sputum, wheezing, other Gastrointestinal/Abdominal: Denies: no symptoms, abdomen distended, abdominal pain, black stools, tarry stools, blood in stool, constipated, diarrhea, difficulty swallowing, nausea, poor appetite, poor fluid intake, rectal bleeding , vomiting, other Genitourinary: Denies: no symptoms, burning, discharge, frequency, flank pain, hematuria, incontinence, pain, urgency, other Neurologic/Psychiatric: Denies: no symptoms, anxiety, depressed, emotional problems, headache, numbness, paresthesia, pre-existing deficit, seizure, tingling, tremors, weakness, other Endocrine: Denies: no symptoms, excessive sweating, flushing, intolerance to cold, intolerance to heat, increased hunger, increased thirst, increased urine, unexplained weight gain, unexplained weight loss, other Allergies: Coded Allergies: No Known Allergies (Unverified , 06/10/19) Subjective 08/15 meds noted, no bleeding, hgb 8.8, wbc 28, path flow pending 08/16 flow pending dw pathologist, results pending, wbc 25, hgb 9 08/17 labs reviewed, meds reviewed, meds noted, no night sweats 08/19 remains obtunded, on vent/trach, no bleeding wbc 21.7 08/20 labs have been reviewed, no bleeding, wbc still elev, path reviewed 08/21 labs are noted, no bleeding, on vent, wbc better 08/22 labs noted, no bleeding, meds reviewed, wbc 24 hgb 7.6 08/23 vent, off abx, c diff negative, h/h stable 08/24 labs reviewed, on abx, wbc 17, hgb 8.9, no hemolysis 08/26 reviewed flow and is negative for leukemia, matt rn 08/27 meds reviewed, no night sweats, matt rn, no major bleeding 08/28 meds reivewed, labs noted 08/29 wbc is stable, approx 15, hgb 8.8, no hemolysis 08/30 labs are noted, is for colo today, hgb 9.9 08/31 right fem julito in place, unchanged, hgb 9.2, gi aware 09/01 labs noted, hgb 8.8, plt >600, no bleeding 09/02 labs noted, no bleeding, with elev wbc still, no new changes 09/03 meds are noted, no bleeding, labs reviewed hgb 8.6 09/04 no major events, hd as per renal, abx, no bleeding hgb low 09/05 labs are noted, no bleeding, meds have been reviewed 09/06 no new labs no hemolysis, cbc is noted, no bleeding 09/07 meds reviewed, no bleeding, [facility]n, [facility] 09/09 meds reviewed, wbc still elevated, as per id recs, cbc noted Objective Objective Current Medications Medications (Trade) Dose Ordered Sig/Leonel Route PRN Reason Start Time Stop Time Status Last Admin Dose Admin Acetaminophen (Tylenol) 650 mg Q4H PRN GT Mild Pain (Pain Scale 1-3) 09/09/19 00:45 10/09/19 00:44 09/09/19 00:44 Atorvastatin Calcium (Lipitor) 40 mg BEDTIME GT 08/09/19 21:00 11/07/19 20:59 09/09/19 21:33 Chlorhexidine Gluconate (Felipa-Hex 2%) 1 applic DAILY@1999 TOPIC 08/15/19 20:00 11/13/19 19:59 09/09/19 21:33 Clonidine HCl (Catapres Tab) 0.1 mg Q4H PRN GT For High Blood Pressure 09/09/19 12:30 12/08/19 05:29 09/10/19 04:26 Dextrose (Dextrose 50%) 25 ml Q30M PRN IV Hypoglycemia 08/09/19 07:30 11/07/19 07:29 Dextrose (Dextrose 50%) 50 ml Q30M PRN IV Hypoglycemia 08/09/19 07:30 11/07/19 07:29 Epoetin Andreas (Epoetin Andreas(ESRD on dialysis)) 10,000 unit WED-WED-WED SUBQ 08/18/19 21:00 11/16/19 20:59 09/08/19 21:26 Famotidine (Pepcid) 20 mg DAILY GT 08/30/19 09:00 11/28/19 08:59 09/10/19 08:21 Gentamicin Protocol (Gentamicin pharmacy to dose) 1 ea DAILY PRN MISC PER RX PROTOCOL 09/06/19 11:00 09/12/19 23:59 Insulin Aspart (NovoLOG) Q6HR SUBQ 08/10/19 00:00 11/07/19 11:29 09/10/19 05:51 Metoprolol Tartrate (Lopressor) 200 mg Q12HR GT 08/09/19 09:00 11/07/19 08:59 09/10/19 08:20 Minoxidil (Loniten) 5 mg DAILY GT 08/09/19 09:00 11/07/19 08:59 09/10/19 08:21 Zinc Oxide (Zinc Oxide) 1 applic BID TOPIC 08/10/19 18:00 11/08/19 17:59 09/10/19 08:22 Last 24 Hour Vital Signs Date Time Temp Pulse Resp B/P (MAP) Pulse Ox O2 Delivery O2 Flow Rate FiO2 09/10/19 12:00 66 09/10/19 12:00 24 09/10/19 10:48 65 09/10/19 08:21 138/67 09/10/19 08:20 68 138/67 09/10/19 08:15 97.9 68 12 138/67 (90) 100 09/10/19 08:00 24 09/10/19 08:00 Mechanical Ventilator 09/10/19 07:10 68 12 24 09/10/19 05:52 66 12 129/57 (81) 98 09/10/19 04:59 68 12 24 09/10/19 04:26 178/74 09/10/19 04:00 24 09/10/19 04:00 Mechanical Ventilator 09/10/19 04:00 97.7 70 13 178/74 (108) 100 09/10/19 03:31 67 09/10/19 03:01 72 12 24 09/10/19 00:44 68 12 24 09/10/19 00:00 Mechanical Ventilator 09/10/19 00:00 68 09/10/19 00:00 99.0 68 12 148/69 (95) 100 09/09/19 22:32 69 12 24 09/09/19 21:33 73 150/52 09/09/19 21:22 70 12 24 09/09/19 20:00 24 09/09/19 20:00 98.2 73 12 150/52 (84) 100 09/09/19 20:00 72 09/09/19 20:00 Mechanical Ventilator 09/09/19 19:10 68 14 24 09/09/19 17:10 69 12 24 09/09/19 16:00 98.1 94 12 154/59 (90) 100 09/09/19 16:00 Mechanical Ventilator 09/09/19 16:00 70 09/09/19 15:19 72 12 24 09/09/19 13:20 69 12 24 09/09/19 12:00 24 09/09/19 12:00 63 09/09/19 12:00 98.2 62 12 165/69 (101) 100 09/09/19 12:00 Mechanical Ventilator 09/09/19 11:30 68 12 24 09/09/19 08:13 72 12 24 09/09/19 08:00 Mechanical Ventilator 09/09/19 08:00 24 09/09/19 08:00 71 09/09/19 08:00 98.2 67 18 142/71 (94) 100 09/09/19 07:45 71 18 24 09/09/19 05:00 71 18 24 09/09/19 04:00 Mechanical Ventilator 09/09/19 04:00 97.5 95 18 115/54 (74) 100 09/09/19 04:00 72 09/09/19 04:00 25 09/09/19 02:33 79 18 24 09/09/19 02:24 97.8 95 18 126/57 (80) 100 09/09/19 01:47 245/127 09/09/19 01:36 96 30 90 09/09/19 01:28 87 18 24 09/09/19 01:00 98.2 78 18 268/157 (194) 100 09/09/19 00:44 166/110 09/09/19 00:00 Mechanical Ventilator 09/09/19 00:00 75 09/08/19 23:06 73 16 24 09/08/19 20:39 79 18 24 09/08/19 20:34 79 140/69 09/08/19 20:00 98.2 78 18 140/69 (92) 100 09/08/19 20:00 79 09/08/19 20:00 25 09/08/19 20:00 Mechanical Ventilator 09/08/19 19:12 80 15 24 09/08/19 17:15 74 15 24 09/08/19 16:00 25 09/08/19 16:00 Mechanical Ventilator 09/08/19 16:00 74 09/08/19 15:30 98.4 76 18 138/67 (90) 100 09/08/19 15:20 79 17 24 09/08/19 13:00 76 15 24 Intake and Output 09/09/19 09/10/19 19:00 07:00 Intake Total 800 ml 660 ml Output Total 2100 ml 0 ml Balance -1300 ml 660 ml Free Water 200 ml 60 ml Tube Feeding 600 ml 600 ml Stool Total 100 ml 0 ml Hemodialysis UF 2000 ml Labs Test 09/07/19 16:00 09/07/19 16:43 09/08/19 11:14 09/08/19 17:35 Random Gentamicin Level 2.8 ug/mL POC Whole Blood Glucose 152 MG/DL (74-106) 163 MG/DL (74-106) Test 09/09/19 00:00 09/09/19 01:03 09/09/19 01:05 09/09/19 05:05 POC Whole Blood Glucose 164 MG/DL (74-106) Arterial Blood pH 7.192 (7.350-7.450) Arterial Blood Partial Pressure CO2 90.8 mmHg (35.0-45.0) Arterial Blood Partial Pressure O2 213.1 mmHg (75.0-100.0) Arterial Blood HCO3 34.1 mmol/L (22.0-26.0) Arterial Blood Oxygen Saturation 98.9 % (95-100) Arterial Blood Base Excess 3.8 (-2-2) Benedict Test Positive White Blood Count 21.9 K/UL (4.8-10.8) Red Blood Count 3.04 M/UL (4.70-6.10) Hemoglobin 7.9 G/DL (14.2-18.0) Hematocrit 25.9 % (42.0-52.0) Mean Corpuscular Volume 85 FL (80-99) Mean Corpuscular Hemoglobin 26.0 PG (27.0-31.0) Mean Corpuscular Hemoglobin Concent 30.5 G/DL (32.0-36.0) Red Cell Distribution Width 18.1 % (11.6-14.8) Platelet Count 422 K/UL (150-450) Mean Platelet Volume 6.0 FL (6.5-10.1) Neutrophils (%) (Auto) % (45.0-75.0) Lymphocytes (%) (Auto) % (20.0-45.0) Monocytes (%) (Auto) % (1.0-10.0) Eosinophils (%) (Auto) % (0.0-3.0) Basophils (%) (Auto) % (0.0-2.0) Differential Total Cells Counted 100 Neutrophils % (Manual) 79 % (45-75) Lymphocytes % (Manual) 14 % (20-45) Monocytes % (Manual) 3 % (1-10) Eosinophils % (Manual) 2 % (0-3) Basophils % (Manual) 2 % (0-2) Band Neutrophils 0 % (0-8) Nucleated Red Blood Cells 1 /100 WBC Platelet Estimate Adequate Platelet Morphology Normal Hypochromasia 3+ Anisocytosis 2+ Sodium Level 139 MMOL/L (136-145) Potassium Level 4.4 MMOL/L (3.5-5.1) Chloride Level 101 MMOL/L (98-107) Carbon Dioxide Level 31 MMOL/L (21-32) Anion Gap 7 mmol/L (5-15) Blood Urea Nitrogen 72 mg/dL (7-18) Creatinine 3.0 MG/DL (0.55-1.30) Estimat Glomerular Filtration Rate 20.3 mL/min (>60) Glucose Level 123 MG/DL (74-106) Calcium Level 8.7 MG/DL (8.5-10.1) Phosphorus Level 1.5 MG/DL (2.5-4.9) Test 09/09/19 05:51 09/09/19 07:50 09/09/19 11:50 09/09/19 17:12 POC Whole Blood Glucose 121 MG/DL (74-106) 127 MG/DL (74-106) 155 MG/DL (74-106) Arterial Blood pH 7.585 (7.350-7.450) Arterial Blood Partial Pressure CO2 33.0 mmHg (35.0-45.0) Arterial Blood Partial Pressure O2 70.3 mmHg (75.0-100.0) Arterial Blood HCO3 30.6 mmol/L (22.0-26.0) Arterial Blood Oxygen Saturation 95.6 % (95-100) Arterial Blood Base Excess 8.4 (-2-2) Benedict Test Positive Test 09/10/19 03:31 09/10/19 11:56 Random Gentamicin Level 1.0 ug/mL POC Whole Blood Glucose 135 MG/DL (74-106) Height (Feet): 5 Height (Inches): 10.00 Weight (Pounds): 161 Objective Physical Exam General Appearance: nad, Chronically Ill Head: normocephalic Eyes: right eye PERRL - Will not open left eye ENT: moist mucus membranes Neck: other - submandibular mass R, fairly rigid with resistance to rotation to L, tracheotomy Respiratory: decreased breath sounds, crackles, other - pacemaker, vent+ Cardiovascular: regular rate, rhythm, edema - anasarca Gastrointestinal: non tender, distended, other - G tube Genitourinary: other Musculoskeletal: other - Contractures all extremities Neurologic: sensory intact, motor weakness, responsive Psychiatric: other Skin: Decubitus/Ulcer - Stage III right elbow, stage III left elbow, stage II sacrum, stage III scrotum, warm/dry Fitz Campos MD Sep 10, 2019 12:27
--- NOTE | 2019-09-10 12:40 | NUR ---
CASE MANAGEMENT: REVIEW 09/10/2019 SI:SEPSIS. RESP FAILURE. 98.2 66 13 126/56 96% ON MECH VENT FIO2 24 BG 135 IS:IV GENTAMICIN X1 IV NS/PHOS/NS X1 LIPITOR GT QHS LONITEN GT QD LOPRESSOR GTQ12H INSULIN ASPART GT Q12H \: 2W STEP DOWN UNIT DCP: SNF PLAN: CONT RESPIRATORY CARE CM LEFT A FOR [facility] [phone] F/U ON ADMISSION STATUS
--- NOTE | 2019-09-10 12:56 | Surgery Progress Note ---
Surgery Progress Note Subjective Procedure Performed Right femoral temporary hemodialysis catheter removal Additional Comments juan cute events exam stable Objective Last 24 Hour Vital Signs Date Time Temp Pulse Resp B/P (MAP) Pulse Ox O2 Delivery O2 Flow Rate FiO2 09/10/19 12:00 66 09/10/19 12:00 98.2 66 13 126/56 (79) 96 09/10/19 12:00 Mechanical Ventilator 09/10/19 12:00 24 09/10/19 10:48 65 09/10/19 08:21 138/67 09/10/19 08:20 68 138/67 09/10/19 08:15 97.9 68 12 138/67 (90) 100 09/10/19 08:00 24 09/10/19 08:00 Mechanical Ventilator 09/10/19 07:10 68 12 24 09/10/19 05:52 66 12 129/57 (81) 98 09/10/19 04:59 68 12 24 09/10/19 04:26 178/74 09/10/19 04:00 24 09/10/19 04:00 Mechanical Ventilator 09/10/19 04:00 97.7 70 13 178/74 (108) 100 09/10/19 03:31 67 09/10/19 03:01 72 12 24 09/10/19 00:44 68 12 24 09/10/19 00:00 Mechanical Ventilator 09/10/19 00:00 68 09/10/19 00:00 99.0 68 12 148/69 (95) 100 09/09/19 22:32 69 12 24 09/09/19 21:33 73 150/52 09/09/19 21:22 70 12 24 09/09/19 20:00 24 09/09/19 20:00 98.2 73 12 150/52 (84) 100 09/09/19 20:00 72 09/09/19 20:00 Mechanical Ventilator 09/09/19 19:10 68 14 24 09/09/19 17:10 69 12 24 09/09/19 16:00 98.1 94 12 154/59 (90) 100 09/09/19 16:00 Mechanical Ventilator 09/09/19 16:00 70 09/09/19 15:19 72 12 24 09/09/19 13:20 69 12 24 I&O Intake and Output 09/09/19 09/10/19 19:00 07:00 Intake Total 800 ml 660 ml Output Total 2100 ml 0 ml Balance -1300 ml 660 ml Free Water 200 ml 60 ml Tube Feeding 600 ml 600 ml Stool Total 100 ml 0 ml Hemodialysis UF 2000 ml Dressing: other Wound: other Drains: other Cardiovascular: RSR Respiratory: decreased breath sounds Abdomen: soft, non-tender, present bowel sounds Extremities: no cyanosis Laboratory Tests Test 09/09/19 17:12 09/10/19 03:31 09/10/19 11:56 POC Whole Blood Glucose 155 MG/DL (74-106) H 135 MG/DL (74-106) H Random Gentamicin Level 1.0 ug/mL Plan Problems: (1) Anemia (2) Hyponatremia (3) Leukocytosis Assessment & Plan: Tracheostomy, left chest pacemaker are again demonstrated. There is bilateral interstitial and airspace disease and bilateral pleural fluid again demonstrated. This appears more severe than on the prior study. Bilateral interstitial and airspace infiltrates versus edema. Bilateral pleural effusions Leukocytosis, anemia, tachycardia, abnormal labs. Wound evaluated and likely etiology of patient's sepsis. Leukocytosis etiology work-up antibiotics per infectious disease Appreciate nephrology input transfuse with dialysis We will follow with recommendations thank you allowing participation's care plan HD access temp HD discussed with medical teams line okay HD as per renal persistent leukocytosis flow cyto noted improving trending down right fem line removed (4) Ventilator dependent (5) Right lower lobe pneumonia (6) Hypokalemia (7) Hyperkalemia (8) Anasarca (9) Decubitus skin ulcer Assessment & Plan: pt presented on admission with generalized edemae.Skin assessed under tracheostomy and no areas of concerns noted. GT Insertion is marginally erythematous with small amt slough at stoma. Unstageable Pressure Injury R elbow. Base of wound is 100% yellow slough, Borders are erythematous. Wound oozing small amt haemopurulent exudate.Darker skin tone without elevation in skin temp or erythema periwound. Pt's penis and scrotum are grossly edematous and enlarged and weeping serous exudate from numerous sites both from penis and scrotum. Two small open wounds noted at base of at base of shaft of penis ,and contreras aspect of scrotum. Both wounds oozing large amt sanguineous and serosanguineous exudate. Multiple open wounds with Biofilm at base of each wounds noted to contreras/lateral,inferior and posterior aspects of scrotum. These wounds noted to be oozing moderate amts of serosanguineous exudate. Hypertrophic scar with scattered areas of hyperpigmentation noted to Sacrum. DTPI noted to L Buttocks (L)7cm x (W)9cm. Base of wound is purple and indurated.Darker skin tone without erythema, induration or fluctuance R and L ischial tuberosities. Both heels are boggy with non-blanchable erythema. Tx.Plan: Cleanse wound R elbow with Saline. Apply TheraHoney, Apply Moisture Barrier Paste periwound. Cover with Optifoam drsg.Change Daily and prn. Wash GT site with soap and water.Pat dry. Apply Zinc Oxide Paste to GT site Daily. Leave Open to Air. Apply Zinc Oxide Paste to entire Scrotum, Place ABD pads to R and L lateral, and posterior aspects of scrotum TWICE daily. Apply Cavilon Skin Barrier to malleoli and both Heels. Cover each site with Optifoam drsgs. Change every 7 days and prn. Reposition at least every 2hours or as tolerated. Off-load heels with Pillows. APM/BECCA Mattress overlay. (10) Malnutrition Assessment & Plan: DAILY ESTIMATED NEEDS: Needs based on Renal, critical care, wound/ 61kg 22-30 kcals/kg 8383-2132 total kcals 1.25-2 g protein/kg 76-122 g total protein Fluid per MD, now on HD NUTRITION DIAGNOSIS: * Swallowing difficulty R/T respiratory failure, dysphagia as evidenced by trach/vent dep, PEG dep * Increased kcal/prot needs R/T wound healing as evidenced by admitted w/ multiple pressure injuries including full thickness wounds at junction of Shaft of penis, dorsal scrotum, R elbow, and DTPI @ L buttocks. CURRENT TF:Vital AF 1.2 @ 50ml/hr x 24 hrs + Garo BID ENTERAL NUTRITION RECOMMENDATIONS: Vital AF 1.2 @ 50ml/hr x 24 hrs to provide 1200ml, 1440kcal,9 0g prot, 973ml free water * Maintain elemental TF of Vital AF 1.2 w/ continued diarrhea -> monitor lytes and renal fxn closely, monitor need for renal T -> TF @ goal will provide 1642mg K and 2025mg Phos * HOB over 30 degrees/ water flush per MD * Continue Garo BID via PEG ADDITIONAL RECOMMENDATIONS: * Per SNF: HT=63" UX=980 lbs (vs EMR wt of 166lbs) -> obtain re-calibrated bedscale wt, rec daily wt monitoring * Wound healing: con't Nephrovite + Garo BID/ Vit C dosing per Nephro * Monitor renal fxn and lytes closely w/ non-renal TF - previously w/ multiple episodes of low K and phos - Check f/up phos (1. 0on 09/04) * Add probiotics and anti-diarrheal meds - prolonged diarrhea, +rectal tube (11) Uremia (12) CKD (chronic kidney disease) stage 5, GFR less than 15 ml/min (13) Colon distention Assessment & Plan: discussed with GI likely functional as having lots of loose bm rectal tube kub f/u s/p colonoscopy - findings reviewed with GI Marked distention of the sigmoid colon. 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 No evidence of bowel wall thickening or pneumatosis 12 mm focus of contrast enhancement in the right pectineus muscle. While nonspecific in appearance, appearance raises concern for a possible pseudoaneurysm. Ill- defined thickening of the pectus medius muscle could indicate some intramuscular hemorrhage. The above findings were phoned to Dr. Urias at the time of interpretation Large bilateral pleural effusions Hazy pulmonary parenchymal opacities as well as dense consolidative opacities most likely represent pulmonary edema, but could represent pneumonia Evidence of anasarca elsewhere, with generalized edema of the subcutaneous fat Bladder wall thickening, raises concern for cystitis. Avalos catheter in place Colonic diverticulosis. No evidence of diverticulitis. Tracheostomy Pacemaker Gastrostomy Jonathan Urias Sep 10, 2019 12:56
--- NOTE | 2019-09-10 13:07 | NUR ---
INSURANCE AVAILABLE PROGRESS NOTES FOR 09/07 AND REVIEW FAXED TO ELIN ([employer]) REF# [id number] RUSSELLM:HARPER P:[phone] F:[phone]
--- NOTE | 2019-09-10 14:34 | Nephrology Progress Note ---
Assessment/Plan Plan Sepsis - IV Abx Established ESRD - HD now TTS. DW HD RN. Extreme hypophosphatemia despite ESRD signifying severe malnutrition. Subjective Subjective Obtunded. Objective Objective Last 24 Hour Vital Signs Date Time Temp Pulse Resp B/P (MAP) Pulse Ox O2 Delivery O2 Flow Rate FiO2 09/10/19 12:00 66 09/10/19 12:00 98.2 66 13 126/56 (79) 96 09/10/19 12:00 Mechanical Ventilator 09/10/19 12:00 24 09/10/19 11:00 63 12 24 09/10/19 10:48 65 09/10/19 08:50 69 12 24 09/10/19 08:21 138/67 09/10/19 08:20 68 138/67 09/10/19 08:15 97.9 68 12 138/67 (90) 100 09/10/19 08:00 24 09/10/19 08:00 Mechanical Ventilator 09/10/19 07:10 68 12 24 09/10/19 05:52 66 12 129/57 (81) 98 09/10/19 04:59 68 12 24 09/10/19 04:26 178/74 09/10/19 04:00 24 09/10/19 04:00 Mechanical Ventilator 09/10/19 04:00 97.7 70 13 178/74 (108) 100 09/10/19 03:31 67 09/10/19 03:01 72 12 24 09/10/19 00:44 68 12 24 09/10/19 00:00 Mechanical Ventilator 09/10/19 00:00 68 09/10/19 00:00 99.0 68 12 148/69 (95) 100 09/09/19 22:32 69 12 24 09/09/19 21:33 73 150/52 09/09/19 21:22 70 12 24 09/09/19 20:00 24 09/09/19 20:00 98.2 73 12 150/52 (84) 100 09/09/19 20:00 72 09/09/19 20:00 Mechanical Ventilator 09/09/19 19:10 68 14 24 09/09/19 17:10 69 12 24 09/09/19 16:00 98.1 94 12 154/59 (90) 100 09/09/19 16:00 Mechanical Ventilator 09/09/19 16:00 70 09/09/19 15:19 72 12 24 Intake and Output 09/09/19 09/10/19 19:00 07:00 Intake Total 800 ml 660 ml Output Total 2100 ml 0 ml Balance -1300 ml 660 ml Free Water 200 ml 60 ml Tube Feeding 600 ml 600 ml Stool Total 100 ml 0 ml Hemodialysis UF 2000 ml Laboratory Tests 09/09/19 17:12: POC Whole Blood Glucose 155H 09/10/19 03:31: Random Gentamicin Level 1.0 09/10/19 11:56: POC Whole Blood Glucose 135H Height (Feet): 5 Height (Inches): 10.00 Weight (Pounds): 161 Objective CV RR Trach clean Lungs CTA New Perma Cath RIJ. Old Femoral Rancho still in Rt. Groin! Abd SNT. BS + E No CCE Erica Pichardo MD Sep 10, 2019 14:34
--- NOTE | 2019-09-10 17:45 | NUR ---
NURSE NOTES: Received pt's report from TAMICA Olvera. Pt is on laying on bed, open eyes, no eye tracking noted. Pt is on vent, AC 12, Vt 550, FiO2 24%, PEEP 5. SpO2 98%, HR 71, RR 13. No s/s of respiratory distress noted. Pt is on G-tube, Vital AF 1.2 @50mL/HR running. Pt is on rectal tube, Greenish brown liquid stool noted. IV site clean and intact noted. Call-light within reach. Bed is low and locked position. Will continue to monitor with plan of care.
[2019-09-10] MEDS ORDERED: Tubing IV Secondary IV ONE (18:33)
[2019-09-10] MEDS ORDERED: NS 275ml ONE (18:33)
--- NOTE | 2019-09-10 19:32 | NUR ---
HAND-OFF: Report given to farzana wright.
--- NOTE | 2019-09-10 19:50 | NUR ---
NURSE NOTES: NURSE NOTES: Pt has a DTI on his penis left side of shaft, Picture was taken by TAMICA Olvera. Wound covered with dressing, clean and intact noted.
--- NOTE | 2019-09-10 20:09 | NUR ---
RESPIRATORY NOTE: Pt received on AC 12/+5/ 24% FiO2. Pt is trached w/ a cuffed, Portex 8 trach. Pt obtunded/disoriented. B/S ovi. rhonchi/diminished, sxn small amounts of thick/thin, pale-yellow secretions. Vent plugged into red outlet, ambu bag at bedside. No s/s of distress at this time. Will continue to monitor.
[2019-09-10] MEDS: Atorvastatin 20mg tab GT SCH (20:23)
[2019-09-10] MEDS: Dyna-Hex 2% Top Sol 2oz TOPIC SCH (20:23)
--- NOTE | 2019-09-10 20:36 | General Progress Note ---
Assessment/Plan Assessment/Plan: Assessment - colonoscopy negative to hepatic flexure - diarrhea - presumed TF related - abnormal LFT - Anemia - leukocytosis and thombocytosis - per heme - stool OB (+) - EGD --> gastritis - Renal failure - Sepsis / leukocytosis - Anasarca - resp failure, trach - dysphagia, GT - encephalopathy, contracted - poor px Recommendations - Continue TF - Elevate HOB - f/u Biopsies of colon --> negative - PPI - abx - supportive care Subjective Allergies: Coded Allergies: No Known Allergies (Unverified , 06/10/19) Subjective Above noted no events tolerating TF d/w medical staff coordinator Objective Last 24 Hour Vital Signs Date Time Temp Pulse Resp B/P (MAP) Pulse Ox O2 Delivery O2 Flow Rate FiO2 09/10/19 20:25 69 132/60 09/10/19 20:00 98.6 71 12 138/55 (82) 99 09/10/19 19:20 70 12 24 09/10/19 16:54 68 09/10/19 16:00 Mechanical Ventilator 09/10/19 16:00 24 09/10/19 16:00 98.4 66 12 147/82 (103) 100 09/10/19 15:00 68 12 24 09/10/19 13:00 65 12 24 09/10/19 12:00 66 09/10/19 12:00 98.2 66 13 126/56 (79) 96 09/10/19 12:00 Mechanical Ventilator 09/10/19 12:00 24 09/10/19 11:00 63 12 24 09/10/19 10:48 65 09/10/19 08:50 69 12 09/10/19 08:21 138/67 09/10/19 08:20 68 138/67 09/10/19 08:15 97.9 68 12 138/67 (90) 100 09/10/19 08:00 24 09/10/19 08:00 Mechanical Ventilator 09/10/19 07:10 68 12 24 09/10/19 05:52 66 12 129/57 (81) 98 09/10/19 04:59 68 12 24 09/10/19 04:26 178/74 09/10/19 04:00 24 09/10/19 04:00 Mechanical Ventilator 09/10/19 04:00 97.7 70 13 178/74 (108) 100 09/10/19 03:31 67 09/10/19 03:01 72 12 24 09/10/19 00:44 68 12 24 09/10/19 00:00 Mechanical Ventilator 09/10/19 00:00 68 09/10/19 00:00 99.0 68 12 148/69 (95) 100 09/09/19 22:32 69 12 24 09/09/19 21:33 73 150/52 09/09/19 21:22 70 12 24 Intake and Output 09/09/19 09/10/19 19:00 07:00 Intake Total 800 ml 660 ml Output Total 2100 ml 0 ml Balance -1300 ml 660 ml Free Water 200 ml 60 ml Tube Feeding 600 ml 600 ml Stool Total 100 ml 0 ml Hemodialysis UF 2000 ml Laboratory Tests 09/10/19 03:31: Random Gentamicin Level 1.0 09/10/19 11:56: POC Whole Blood Glucose 135H 09/10/19 17:05: POC Whole Blood Glucose 145H Height (Feet): 5 Height (Inches): 10.00 Weight (Pounds): 161 Objective Debilitated AA man NCAT (+) trach coarse BS RR abd distended, anasarca, (+) GT ext (+) edema contracted Ronny Mustafa MD Sep 10, 2019 20:35
[2019-09-11] VITALS (7 sets, daily range): BP systolic 114–167; BP diastolic 50–88
[2019-09-11] MEDS: NovoLOG Insulin Flexpen SUBQ SCH ×5 (00:17→23:35)
--- NOTE | 2019-09-11 07:15 | NUR ---
NURSE NOTES: Received report from Tracy Batista RN. Pt in bed obtunded, open his eyes spontaneously. IV site in LFA 22G SL patent and asymptomatic. Right subclavian vein tunneled cath patent and intact. HOB elevated 30 degree. Side railsx3 up for safety. On BECCA mattress. G-tube site patent and intact running Vital AF 50ml/hr patent and intact. On rectal tube, no drainage noted. Will continue plan of care.
--- NOTE | 2019-09-11 07:20 | NUR ---
HAND-OFF: Report given to TAMICA Madsen.
[2019-09-11] MEDS: Zinc Oxide Oint 2oz TOPIC SCH ×2 (08:24→18:17)
[2019-09-11] MEDS: Metoprolol Tartrate 100mg tab GT SCH ×2 (08:24→20:35)
[2019-09-11] MEDS: Minoxidil 2.5mg tab GT SCH (08:24)
--- NOTE | 2019-09-11 08:46 | General Progress Note ---
Assessment/Plan Assessment/Plan: IMPRESSION: 1. anemia. 2. GI bleed. 3. Leukocytosis. 4. Probable sepsis. + BCX 5. Acute on chronic renal failure. 6. Hyponatremia. 7. Severe protein-calorie malnutrition. 8. Significantly elevated C-reactive protein concerning for infectious etiology. 9. Tracheostomy, G-tube. 10. Ventilator dependence. 11. anasarca with bilateral pleural effusion 12. Hematuria 13. V pacing PLAN needs placement may need transfusion care noted on vent/ no wean surgical follow up monitor labs and adjust RX ID follow up monitor renal function: HD prognosis poor impression, plan, and exam edited and reviewed in detail care discussed with RN Subjective Allergies: Coded Allergies: No Known Allergies (Unverified , 06/10/19) Subjective remains ill on vent on HD had issues with vent and now improved Objective Last 24 Hour Vital Signs Date Time Temp Pulse Resp B/P (MAP) Pulse Ox O2 Delivery O2 Flow Rate FiO2 09/11/19 08:39 69 12 24 09/11/19 08:24 68 157/78 09/11/19 08:24 157/78 09/11/19 08:00 97.9 68 12 157/78 (104) 99 09/11/19 07:14 67 12 24 09/11/19 05:24 68 12 24 09/11/19 04:00 97.9 60 12 149/66 (93) 100 09/11/19 04:00 24 09/11/19 04:00 68 09/11/19 04:00 Mechanical Ventilator 09/11/19 03:10 63 12 24 09/11/19 01:02 68 12 24 09/11/19 00:00 Mechanical Ventilator 09/11/19 00:00 98.2 68 12 143/57 (85) 100 09/11/19 00:00 24 09/11/19 00:00 67 09/10/19 23:00 67 12 24 09/10/19 21:15 66 12 24 09/10/19 20:25 69 132/60 09/10/19 20:00 98.6 71 12 138/55 (82) 99 09/10/19 20:00 70 09/10/19 20:00 Mechanical Ventilator 09/10/19 20:00 24 09/10/19 19:20 70 12 24 09/10/19 16:54 68 09/10/19 16:00 Mechanical Ventilator 09/10/19 16:00 24 09/10/19 16:00 98.4 66 12 147/82 (103) 100 09/10/19 15:00 68 12 24 09/10/19 13:00 65 12 24 09/10/19 12:00 66 09/10/19 12:00 98.2 66 13 126/56 (79) 96 09/10/19 12:00 Mechanical Ventilator 09/10/19 12:00 24 09/10/19 11:00 63 12 24 09/10/19 10:48 65 09/10/19 08:50 69 12 24 Intake and Output 09/10/19 09/11/19 19:00 07:00 Intake Total 660 ml 660 ml Output Total 0 ml 0 ml Balance 660 ml 660 ml Free Water 50 ml 60 ml IV Total 60 ml Tube Feeding 550 ml 600 ml Output Urine Total 0 ml 0 ml Stool Total 0 ml Laboratory Tests 09/10/19 11:56: POC Whole Blood Glucose 135H 09/10/19 17:05: POC Whole Blood Glucose 145H Height (Feet): 5 Height (Inches): 10.00 Weight (Pounds): 163 Objective GENERAL: Ill-appearing male, chronically debilitated. HEENT: Tracheostomy in midline. Questionable fullness in the submandibular region. LUNGS: Coarse breath sounds. reduced breath sounds CARDIAC: S1, S2. Regular rate and rhythm. ABDOMEN: Soft. G-tube. EXTREMITIES: With noted edema. NEUROLOGICAL: Poorly responsive, weak diffusely. Kain Ramirez MD Sep 11, 2019 08:46
--- NOTE | 2019-09-11 10:58 | Infectious Diseases Prog Note ---
Assessment/Plan Assessment/Plan antibiotics : gentamicin 7.29.20- A 1. klebsiella catheter infection s/p removal 2. respiratory failure 3. leucocytosis 4. klebsiella, pseudomonas, providencia pneumonia s/p rx COVID 19 test negative x 2 5. renal failure on HD P 1. continue iv gentamicin 1 more day 2. will follow up cultures Subjective ROS Limited/Unobtainable: Yes Allergies: Coded Allergies: No Known Allergies (Unverified , 06/10/19) Objective Last 24 Hour Vital Signs Date Time Temp Pulse Resp B/P (MAP) Pulse Ox O2 Delivery O2 Flow Rate FiO2 09/11/19 08:39 69 12 24 09/11/19 08:24 68 157/78 09/11/19 08:24 157/78 09/11/19 08:00 69 09/11/19 08:00 Mechanical Ventilator 09/11/19 08:00 97.9 68 12 157/78 (104) 99 09/11/19 08:00 24 09/11/19 07:14 67 12 24 09/11/19 05:24 68 12 24 09/11/19 04:00 97.9 60 12 149/66 (93) 100 09/11/19 04:00 24 09/11/19 04:00 68 09/11/19 04:00 Mechanical Ventilator 09/11/19 03:10 63 12 24 09/11/19 01:02 68 12 24 09/11/19 00:00 Mechanical Ventilator 09/11/19 00:00 98.2 68 12 143/57 (85) 100 09/11/19 00:00 24 09/11/19 00:00 67 09/10/19 23:00 67 12 24 09/10/19 21:15 66 12 24 09/10/19 20:25 69 132/60 09/10/19 20:00 98.6 71 12 138/55 (82) 99 09/10/19 20:00 70 09/10/19 20:00 Mechanical Ventilator 09/10/19 20:00 24 09/10/19 19:20 70 12 24 09/10/19 16:54 68 09/10/19 16:00 Mechanical Ventilator 09/10/19 16:00 24 09/10/19 16:00 98.4 66 12 147/82 (103) 100 09/10/19 15:00 68 12 24 09/10/19 13:00 65 12 24 09/10/19 12:00 66 09/10/19 12:00 98.2 66 13 126/56 (79) 96 09/10/19 12:00 Mechanical Ventilator 09/10/19 12:00 24 09/10/19 11:00 63 12 24 Height (Feet): 5 Height (Inches): 10.00 Weight (Pounds): 163 HEENT: status post trach Respiratory/Chest: lungs clear Cardiovascular: normal rate, regular rhythm, no gallop/murmur Abdomen: soft, non tender, other - GT Extremities: other - + edema, right subclavian catheter Laboratory Tests Test 09/10/19 11:56 09/10/19 17:05 POC Whole Blood Glucose 135 MG/DL (74-106) H 145 MG/DL (74-106) H Current Medications Medications (Trade) Dose Ordered Sig/Leonel Route PRN Reason Start Time Stop Time Status Last Admin Dose Admin Acetaminophen (Tylenol) 650 mg Q4H PRN GT Mild Pain (Pain Scale 1-3) 09/09/19 00:45 10/09/19 00:44 09/09/19 00:44 Atorvastatin Calcium (Lipitor) 40 mg BEDTIME GT 08/09/19 21:00 11/07/19 20:59 09/10/19 20:23 Chlorhexidine Gluconate (Felipa-Hex 2%) 1 applic DAILY@1999 TOPIC 08/15/19 20:00 11/13/19 19:59 09/10/19 20:23 Clonidine HCl (Catapres Tab) 0.1 mg Q4H PRN GT For High Blood Pressure 09/09/19 12:30 12/08/19 05:29 09/10/19 04:26 Dextrose (Dextrose 50%) 25 ml Q30M PRN IV Hypoglycemia 08/09/19 07:30 11/07/19 07:29 Dextrose (Dextrose 50%) 50 ml Q30M PRN IV Hypoglycemia 08/09/19 07:30 11/07/19 07:29 Epoetin Andreas (Epoetin Andreas(ESRD on dialysis)) 10,000 unit WED-WED-WED SUBQ 08/18/19 21:00 11/16/19 20:59 09/08/19 21:26 Famotidine (Pepcid) 20 mg DAILY GT 08/30/19 09:00 11/28/19 08:59 09/11/19 08:24 Gentamicin Protocol (Gentamicin pharmacy to dose) 1 ea DAILY PRN MISC PER RX PROTOCOL 09/06/19 11:00 09/12/19 23:59 Insulin Aspart (NovoLOG) Q6HR SUBQ 08/10/19 00:00 11/07/19 11:29 09/11/19 05:53 Metoprolol Tartrate (Lopressor) 200 mg Q12HR GT 08/09/19 09:00 11/07/19 08:59 09/11/19 08:24 Minoxidil (Loniten) 5 mg DAILY GT 08/09/19 09:00 11/07/19 08:59 09/11/19 08:24 Zinc Oxide (Zinc Oxide) 1 applic BID TOPIC 08/10/19 18:00 11/08/19 17:59 09/11/19 08:24 Farnaz Lyle MD Sep 11, 2019 10:58
--- NOTE | 2019-09-11 12:15 | Surgery Progress Note ---
Surgery Progress Note Subjective Procedure Performed Right femoral temporary hemodialysis catheter removal Additional Comments leukocytosis more comfortable on vent ill appearing Objective Last 24 Hour Vital Signs Date Time Temp Pulse Resp B/P (MAP) Pulse Ox O2 Delivery O2 Flow Rate FiO2 09/11/19 11:34 97.9 64 14 150/70 (96) 99 09/11/19 11:02 64 12 24 09/11/19 08:39 69 12 24 09/11/19 08:24 68 157/78 09/11/19 08:24 157/78 09/11/19 08:00 69 09/11/19 08:00 Mechanical Ventilator 09/11/19 08:00 97.9 68 12 157/78 (104) 99 09/11/19 08:00 24 09/11/19 07:14 67 12 24 09/11/19 05:24 68 12 24 09/11/19 04:00 97.9 60 12 149/66 (93) 100 09/11/19 04:00 24 09/11/19 04:00 68 09/11/19 04:00 Mechanical Ventilator 09/11/19 03:10 63 12 24 09/11/19 01:02 68 12 24 09/11/19 00:00 Mechanical Ventilator 09/11/19 00:00 98.2 68 12 143/57 (85) 100 09/11/19 00:00 24 09/11/19 00:00 67 09/10/19 23:00 67 12 24 09/10/19 21:15 66 12 24 09/10/19 20:25 69 132/60 09/10/19 20:00 98.6 71 12 138/55 (82) 99 09/10/19 20:00 70 09/10/19 20:00 Mechanical Ventilator 09/10/19 20:00 24 09/10/19 19:20 70 12 24 09/10/19 16:54 68 09/10/19 16:00 Mechanical Ventilator 09/10/19 16:00 24 09/10/19 16:00 98.4 66 12 147/82 (103) 100 09/10/19 15:00 68 12 24 09/10/19 13:00 65 12 24 I&O Intake and Output 09/10/19 09/11/19 19:00 07:00 Intake Total 660 ml 660 ml Output Total 0 ml 0 ml Balance 660 ml 660 ml Free Water 50 ml 60 ml IV Total 60 ml Tube Feeding 550 ml 600 ml Output Urine Total 0 ml 0 ml Stool Total 0 ml Dressing: other Wound: other Drains: other Cardiovascular: RSR Respiratory: decreased breath sounds Abdomen: soft, non-tender, present bowel sounds Extremities: no cyanosis Laboratory Tests Test 09/10/19 17:05 09/11/19 11:23 POC Whole Blood Glucose 145 MG/DL (74-106) H 134 MG/DL (74-106) H Plan Problems: (1) Anemia (2) Hyponatremia (3) Leukocytosis Assessment & Plan: Tracheostomy, left chest pacemaker are again demonstrated. There is bilateral interstitial and airspace disease and bilateral pleural fluid again demonstrated. This appears more severe than on the prior study. Bilateral interstitial and airspace infiltrates versus edema. Bilateral pleural effusions Leukocytosis, anemia, tachycardia, abnormal labs. Wound evaluated and likely etiology of patient's sepsis. Leukocytosis etiology work-up antibiotics per infectious disease Appreciate nephrology input transfuse with dialysis We will follow with recommendations thank you allowing participation's care plan HD access temp HD discussed with medical teams line okay HD as per renal persistent leukocytosis flow cyto noted improving trending down right fem line removed (4) Ventilator dependent (5) Right lower lobe pneumonia (6) Hypokalemia (7) Hyperkalemia (8) Anasarca (9) Decubitus skin ulcer Assessment & Plan: pt presented on admission with generalized edemae.Skin assessed under tracheostomy and no areas of concerns noted. GT Insertion is marginally erythematous with small amt slough at stoma. Unstageable Pressure Injury R elbow. Base of wound is 100% yellow slough, Borders are erythematous. Wound oozing small amt haemopurulent exudate.Darker skin tone without elevation in skin temp or erythema periwound. Pt's penis and scrotum are grossly edematous and enlarged and weeping serous exudate from numerous sites both from penis and scrotum. Two small open wounds noted at base of at base of shaft of penis ,and contreras aspect of scrotum. Both wounds oozing large amt sanguineous and serosanguineous exudate. Multiple open wounds with Biofilm at base of each wounds noted to contreras/lateral,inferior and posterior aspects of scrotum. These wounds noted to be oozing moderate amts of serosanguineous exudate. Hypertrophic scar with scattered areas of hyperpigmentation noted to Sacrum. DTPI noted to L Buttocks (L)7cm x (W)9cm. Base of wound is purple and indurated.Darker skin tone without erythema, induration or fluctuance R and L ischial tuberosities. Both heels are boggy with non-blanchable erythema. Tx.Plan: Cleanse wound R elbow with Saline. Apply TheraHoney, Apply Moisture Barrier Paste periwound. Cover with Optifoam drsg.Change Daily and prn. Wash GT site with soap and water.Pat dry. Apply Zinc Oxide Paste to GT site Daily. Leave Open to Air. Apply Zinc Oxide Paste to entire Scrotum, Place ABD pads to R and L lateral, and posterior aspects of scrotum TWICE daily. Apply Cavilon Skin Barrier to malleoli and both Heels. Cover each site with Optifoam drsgs. Change every 7 days and prn. Reposition at least every 2hours or as tolerated. Off-load heels with Pillows. APM/BECCA Mattress overlay. (10) Malnutrition Assessment & Plan: DAILY ESTIMATED NEEDS: Needs based on Renal, critical care, wound/ 61kg 22-30 kcals/kg 3345-1718 total kcals 1.25-2 g protein/kg 76-122 g total protein Fluid per MD, now on HD NUTRITION DIAGNOSIS: * Swallowing difficulty R/T respiratory failure, dysphagia as evidenced by trach/vent dep, PEG dep * Increased kcal/prot needs R/T wound healing as evidenced by admitted w/ multiple pressure injuries including full thickness wounds at junction of Shaft of penis, dorsal scrotum, R elbow, and DTPI @ L buttocks. CURRENT TF:Vital AF 1.2 @ 50ml/hr x 24 hrs + Garo BID ENTERAL NUTRITION RECOMMENDATIONS: Vital AF 1.2 @ 50ml/hr x 24 hrs to provide 1200ml, 1440kcal,9 0g prot, 973ml free water * Maintain elemental TF of Vital AF 1.2 w/ continued diarrhea -> monitor lytes and renal fxn closely, monitor need for renal T -> TF @ goal will provide 1642mg K and 2025mg Phos * HOB over 30 degrees/ water flush per MD * Continue Garo BID via PEG ADDITIONAL RECOMMENDATIONS: * Per SNF: HT=63" QF=975 lbs (vs EMR wt of 166lbs) -> obtain re-calibrated bedscale wt, rec daily wt monitoring * Wound healing: con't Nephrovite + Garo BID/ Vit C dosing per Nephro * Monitor renal fxn and lytes closely w/ non-renal TF - previously w/ multiple episodes of low K and phos - Check f/up phos (1. 0on 09/04) * Add probiotics and anti-diarrheal meds - prolonged diarrhea, +rectal tube (11) Uremia (12) CKD (chronic kidney disease) stage 5, GFR less than 15 ml/min (13) Colon distention Assessment & Plan: discussed with GI likely functional as having lots of loose bm rectal tube kub f/u s/p colonoscopy - findings reviewed with GI Marked distention of the sigmoid colon. 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 No evidence of bowel wall thickening or pneumatosis 12 mm focus of contrast enhancement in the right pectineus muscle. While nonspecific in appearance, appearance raises concern for a possible pseudoaneurysm. Ill- defined thickening of the pectus medius muscle could indicate some intramuscular hemorrhage. The above findings were phoned to Dr. Urias at the time of interpretation Large bilateral pleural effusions Hazy pulmonary parenchymal opacities as well as dense consolidative opacities most likely represent pulmonary edema, but could represent pneumonia Evidence of anasarca elsewhere, with generalized edema of the subcutaneous fat Bladder wall thickening, raises concern for cystitis. Avalos catheter in place Colonic diverticulosis. No evidence of diverticulitis. Tracheostomy Pacemaker Gastrostomy Jonathan Urias Sep 11, 2019 12:15
--- NOTE | 2019-09-11 13:21 | NUR ---
RD ASSESSMENT & RECOMMENDATIONS SEE CARE ACTIVITY FOR COMPLETE ASSESSMENT DAILY ESTIMATED NEEDS: Needs based on Renal, critical care, wound/ 61kg 22-30 kcals/kg 5243-3172 total kcals 1.25-2 g protein/kg 76-122 g total protein Fluid per MD, now on HD NUTRITION DIAGNOSIS: * Swallowing difficulty R/T respiratory failure, dysphagia as evidenced by trach/vent dep, PEG dep * Increased kcal/prot needs R/T wound healing as evidenced by admitted w/ multiple pressure injuries including full thickness wounds at junction of Shaft of penis, dorsal scrotum, R elbow, and DTPI @ L buttocks. CURRENT TF:Vital AF 1.2 @ 50ml/hr x 24 hrs + Garo BID ENTERAL NUTRITION RECOMMENDATIONS: Vital AF 1.2 @ 50ml/hr x 24 hrs to provide 1200ml, 1440kcal,9 0g prot, 973ml free water * Maintain elemental TF of Vital AF 1.2 w/ continued diarrhea -> monitor lytes and renal fxn closely, monitor need for renal T -> TF @ goal will provide 1642mg K and 2025mg Phos * HOB over 30 degrees/ water flush per MD * Continue Garo BID via PEG ADDITIONAL RECOMMENDATIONS: * Per SNF: HT=63" CJ=676 lbs (vs EMR wt of 166lbs) -> obtain re-calibrated bedscale wt, rec daily wt monitoring * Wound healing: con't Nephrovite + Garo BID/ Vit C dosing per Nephro * Monitor renal fxn and lytes closely w/ non-renal TF - previously w/ multiple episodes of low K and phos - Check f/up phos (1.0-> now 1.5) * Add probiotics and anti-diarrheal meds - prolonged diarrhea, +rectal tube
--- NOTE | 2019-09-11 14:22 | Hematology/Onc Progress Note ---
Assessment/Plan Assessment/Plan Assessment/recs # Leukocytosis - with multiple infections, VRE UTI, flow is negative --> wbc trend 33-->28-->25->23->22->23->24->17.3-->17-->14->16-->15.6-->14-->14- >13->19->18->17->22->22 --> on abx, linezolid and zosyn--> zosyn-->off --> + blood cultures with coag neg staph likely contaminated --> as per id recs --> has ordered a flow cytometry (with pathology) --> does show increased nK cell activity --> JOURDAN 2 and bcr-abl labs ordered (these are send outs) --> plt 585-->613-->649-->669->663 # Anemia due to chronic disease/kidney disease as well, gi bleed + occult + noted --> was on iron in the past, now on hold --> has been started on Epogen sq --> as per renal care --> egd done and shows gastritis --> on ppi --> egd showed gastritis, colo recently done --> hgb 9-->8.7-->7.6-->9.2-->8.9-->9.2->9.3-->8.8->9.9-->9.2-->8.1-->8.7-->7.9 # Respiratory failure --> per pulm, s/p trach --> COVID 19 test negative x 2 # Dysphagia s/p gtube with nepro --> per gi # ESRD with r fem julito --> hd as per renal # Dvt ppx scds Appreciate consultation and dw Rn Subjective Allergies: Coded Allergies: No Known Allergies (Unverified , 06/10/19) All Systems: reviewed and negative except above Subjective 08/15 meds noted, no bleeding, hgb 8.8, wbc 28, path flow pending 08/16 flow pending dw pathologist, results pending, wbc 25, hgb 9 08/17 labs reviewed, meds reviewed, meds noted, no night sweats 08/19 remains obtunded, on vent/trach, no bleeding wbc 21.7 08/20 labs have been reviewed, no bleeding, wbc still elev, path reviewed 08/21 labs are noted, no bleeding, on vent, wbc better 08/22 labs noted, no bleeding, meds reviewed, wbc 24 hgb 7.6 08/23 vent, off abx, c diff negative, h/h stable 08/24 labs reviewed, on abx, wbc 17, hgb 8.9, no hemolysis 08/26 reviewed flow and is negative for leukemia, mtat rn 08/27 meds reviewed, no night sweats, matt rn, no major bleeding 08/28 meds reivewed, labs noted 08/29 wbc is stable, approx 15, hgb 8.8, no hemolysis 08/30 labs are noted, is for colo today, hgb 9.9 08/31 right fem julito in place, unchanged, hgb 9.2, gi aware 09/01 labs noted, hgb 8.8, plt >600, no bleeding 09/02 labs noted, no bleeding, with elev wbc still, no new changes 09/03 meds are noted, no bleeding, labs reviewed hgb 8.6 09/04 no major events, hd as per renal, abx, no bleeding hgb low 09/05 labs are noted, no bleeding, meds have been reviewed 09/06 no new labs no hemolysis, cbc is noted, no bleeding 09/07 meds reviewed, no bleeding, matt rn, permacath functioning well 09/09 meds reviewed, wbc still elevated, as per id recs, cbc noted 09/10 is obtunded, with gutbe in place, labs reviewed Objective Objective Current Medications Medications (Trade) Dose Ordered Sig/Leonel Route PRN Reason Start Time Stop Time Status Last Admin Dose Admin Acetaminophen (Tylenol) 650 mg Q4H PRN GT Mild Pain (Pain Scale 1-3) 09/09/19 00:45 10/09/19 00:44 09/09/19 00:44 Atorvastatin Calcium (Lipitor) 40 mg BEDTIME GT 08/09/19 21:00 11/07/19 20:59 09/10/19 20:23 Chlorhexidine Gluconate (Felipa-Hex 2%) 1 applic DAILY@1999 TOPIC 08/15/19 20:00 11/13/19 19:59 09/10/19 20:23 Clonidine HCl (Catapres Tab) 0.1 mg Q4H PRN GT For High Blood Pressure 09/09/19 12:30 12/08/19 05:29 09/10/19 04:26 Dextrose (Dextrose 50%) 25 ml Q30M PRN IV Hypoglycemia 08/09/19 07:30 11/07/19 07:29 Dextrose (Dextrose 50%) 50 ml Q30M PRN IV Hypoglycemia 08/09/19 07:30 11/07/19 07:29 Epoetin Andreas (Epoetin Andreas(ESRD on dialysis)) 10,000 unit WED-WED-WED SUBQ 08/18/19 21:00 11/16/19 20:59 09/08/19 21:26 Famotidine (Pepcid) 20 mg DAILY GT 08/30/19 09:00 11/28/19 08:59 09/11/19 08:24 Gentamicin Protocol (Gentamicin pharmacy to dose) 1 ea DAILY PRN MISC PER RX PROTOCOL 09/06/19 11:00 09/12/19 23:59 Insulin Aspart (NovoLOG) Q6HR SUBQ 08/10/19 00:00 11/07/19 11:29 09/11/19 05:53 Metoprolol Tartrate (Lopressor) 200 mg Q12HR GT 08/09/19 09:00 11/07/19 08:59 09/11/19 08:24 Minoxidil (Loniten) 5 mg DAILY GT 08/09/19 09:00 11/07/19 08:59 09/11/19 08:24 Zinc Oxide (Zinc Oxide) 1 applic BID TOPIC 08/10/19 18:00 11/08/19 17:59 09/11/19 08:24 Last 24 Hour Vital Signs Date Time Temp Pulse Resp B/P (MAP) Pulse Ox O2 Delivery O2 Flow Rate FiO2 09/11/19 13:12 69 12 24 09/11/19 12:00 66 09/11/19 11:34 97.9 64 14 150/70 (96) 99 09/11/19 11:02 64 12 24 09/11/19 08:39 69 12 24 09/11/19 08:24 68 157/78 09/11/19 08:24 157/78 8/3/20 08:00 69 09/11/19 08:00 Mechanical Ventilator 09/11/19 08:00 97.9 68 12 157/78 (104) 99 09/11/19 08:00 24 09/11/19 07:14 67 12 24 09/11/19 05:24 68 12 24 09/11/19 04:00 97.9 60 12 149/66 (93) 100 09/11/19 04:00 24 09/11/19 04:00 68 09/11/19 04:00 Mechanical Ventilator 09/11/19 03:10 63 12 24 09/11/19 01:02 68 12 24 09/11/19 00:00 Mechanical Ventilator 09/11/19 00:00 98.2 68 12 143/57 (85) 100 09/11/19 00:00 24 09/11/19 00:00 67 09/10/19 23:00 67 12 24 09/10/19 21:15 66 12 24 09/10/19 20:25 69 132/60 09/10/19 20:00 98.6 71 12 138/55 (82) 99 09/10/19 20:00 70 09/10/19 20:00 Mechanical Ventilator 09/10/19 20:00 24 09/10/19 19:20 70 12 24 09/10/19 16:54 68 09/10/19 16:00 Mechanical Ventilator 09/10/19 16:00 24 09/10/19 16:00 98.4 66 12 147/82 (103) 100 09/10/19 15:00 68 12 24 09/10/19 13:00 65 12 24 09/10/19 12:00 66 09/10/19 12:00 98.2 66 13 126/56 (79) 96 09/10/19 12:00 Mechanical Ventilator 09/10/19 12:00 24 09/10/19 11:00 63 12 24 09/10/19 10:48 65 09/10/19 08:50 69 12 24 09/10/19 08:21 138/67 09/10/19 08:20 68 138/67 09/10/19 08:15 97.9 68 12 138/67 (90) 100 09/10/19 08:00 24 09/10/19 08:00 Mechanical Ventilator 09/10/19 07:10 68 12 24 09/10/19 05:52 66 12 129/57 (81) 98 09/10/19 04:59 68 12 24 09/10/19 04:26 178/74 09/10/19 04:00 24 09/10/19 04:00 Mechanical Ventilator 09/10/19 04:00 97.7 70 13 178/74 (108) 100 09/10/19 03:31 67 09/10/19 03:01 72 12 24 09/10/19 00:44 68 12 24 09/10/19 00:00 Mechanical Ventilator 09/10/19 00:00 68 09/10/19 00:00 99.0 68 12 148/69 (95) 100 09/09/19 22:32 69 12 24 09/09/19 21:33 73 150/52 09/09/19 21:22 70 12 24 09/09/19 20:00 24 09/09/19 20:00 98.2 73 12 150/52 (84) 100 09/09/19 20:00 72 09/09/19 20:00 Mechanical Ventilator 09/09/19 19:10 68 14 24 09/09/19 17:10 69 12 24 09/09/19 16:00 98.1 94 12 154/59 (90) 100 09/09/19 16:00 Mechanical Ventilator 09/09/19 16:00 70 09/09/19 15:19 72 12 24 Intake and Output 09/10/19 09/11/19 19:00 07:00 Intake Total 660 ml 660 ml Output Total 0 ml 0 ml Balance 660 ml 660 ml Free Water 50 ml 60 ml IV Total 60 ml Tube Feeding 550 ml 600 ml Output Urine Total 0 ml 0 ml Stool Total 0 ml Labs Test 09/08/19 17:35 09/09/19 00:00 09/09/19 01:03 09/09/19 01:05 POC Whole Blood Glucose 163 MG/DL (74-106) 164 MG/DL (74-106) Arterial Blood pH 7.192 (7.350-7.450) Arterial Blood Partial Pressure CO2 90.8 mmHg (35.0-45.0) Arterial Blood Partial Pressure O2 213.1 mmHg (75.0-100.0) Arterial Blood HCO3 34.1 mmol/L (22.0-26.0) Arterial Blood Oxygen Saturation 98.9 % (95-100) Arterial Blood Base Excess 3.8 (-2-2) Benedict Test Positive Test 09/09/19 05:05 09/09/19 05:51 09/09/19 07:50 09/09/19 11:50 White Blood Count 21.9 K/UL (4.8-10.8) Red Blood Count 3.04 M/UL (4.70-6.10) Hemoglobin 7.9 G/DL (14.2-18.0) Hematocrit 25.9 % (42.0-52.0) Mean Corpuscular Volume 85 FL (80-99) Mean Corpuscular Hemoglobin 26.0 PG (27.0-31.0) Mean Corpuscular Hemoglobin Concent 30.5 G/DL (32.0-36.0) Red Cell Distribution Width 18.1 % (11.6-14.8) Platelet Count 422 K/UL (150-450) Mean Platelet Volume 6.0 FL (6.5-10.1) Neutrophils (%) (Auto) % (45.0-75.0) Lymphocytes (%) (Auto) % (20.0-45.0) Monocytes (%) (Auto) % (1.0-10.0) Eosinophils (%) (Auto) % (0.0-3.0) Basophils (%) (Auto) % (0.0-2.0) Differential Total Cells Counted 100 Neutrophils % (Manual) 79 % (45-75) Lymphocytes % (Manual) 14 % (20-45) Monocytes % (Manual) 3 % (1-10) Eosinophils % (Manual) 2 % (0-3) Basophils % (Manual) 2 % (0-2) Band Neutrophils 0 % (0-8) Nucleated Red Blood Cells 1 /100 WBC Platelet Estimate Adequate Platelet Morphology Normal Hypochromasia 3+ Anisocytosis 2+ Sodium Level 139 MMOL/L (136-145) Potassium Level 4.4 MMOL/L (3.5-5.1) Chloride Level 101 MMOL/L (98-107) Carbon Dioxide Level 31 MMOL/L (21-32) Anion Gap 7 mmol/L (5-15) Blood Urea Nitrogen 72 mg/dL (7-18) Creatinine 3.0 MG/DL (0.55-1.30) Estimat Glomerular Filtration Rate 20.3 mL/min (>60) Glucose Level 123 MG/DL (74-106) Calcium Level 8.7 MG/DL (8.5-10.1) Phosphorus Level 1.5 MG/DL (2.5-4.9) POC Whole Blood Glucose 121 MG/DL (74-106) 127 MG/DL (74-106) Arterial Blood pH 7.585 (7.350-7.450) Arterial Blood Partial Pressure CO2 33.0 mmHg (35.0-45.0) Arterial Blood Partial Pressure O2 70.3 mmHg (75.0-100.0) Arterial Blood HCO3 30.6 mmol/L (22.0-26.0) Arterial Blood Oxygen Saturation 95.6 % (95-100) Arterial Blood Base Excess 8.4 (-2-2) Benedict Test Positive Test 09/09/19 17:12 09/10/19 03:31 09/10/19 11:56 09/10/19 17:05 POC Whole Blood Glucose 155 MG/DL (74-106) 135 MG/DL (74-106) 145 MG/DL (74-106) Random Gentamicin Level 1.0 ug/mL Test 09/11/19 11:23 POC Whole Blood Glucose 134 MG/DL (74-106) Height (Feet): 5 Height (Inches): 10.00 Weight (Pounds): 163 Objective Physical Exam General Appearance: nad, Chronically Ill Head: normocephalic Eyes: right eye PERRL - Will not open left eye ENT: moist mucus membranes Neck: other - submandibular mass R, fairly rigid with resistance to rotation to L, tracheotomy Respiratory: decreased breath sounds, crackles, other - pacemaker, vent+ Cardiovascular: regular rate, rhythm, edema - anasarca Gastrointestinal: non tender, distended, other - G tube Genitourinary: other Musculoskeletal: other - Contractures all extremities Neurologic: sensory intact, motor weakness, responsive Psychiatric: other Skin: Decubitus/Ulcer - Stage III right elbow, stage III left elbow, stage II sacrum, stage III scrotum, warm/dry Fitz Campos MD Sep 11, 2019 14:22
--- NOTE | 2019-09-11 14:28 | Nephrology Progress Note ---
Assessment/Plan Plan Sepsis - IV Abx Established ESRD - HD now TTS. DW HD RN. Extreme hypophosphatemia despite ESRD signifying severe malnutrition. Subjective Subjective Obtunded. Objective Objective Last 24 Hour Vital Signs Date Time Temp Pulse Resp B/P (MAP) Pulse Ox O2 Delivery O2 Flow Rate FiO2 09/11/19 13:12 69 12 24 09/11/19 12:00 24 09/11/19 12:00 66 09/11/19 11:34 97.9 64 14 150/70 (96) 99 09/11/19 11:02 64 12 24 09/11/19 08:39 69 12 24 09/11/19 08:24 68 157/78 09/11/19 08:24 157/78 09/11/19 08:00 69 09/11/19 08:00 Mechanical Ventilator 09/11/19 08:00 97.9 68 12 157/78 (104) 99 09/11/19 08:00 24 09/11/19 07:14 67 12 24 09/11/19 05:24 68 12 24 09/11/19 04:00 97.9 60 12 149/66 (93) 100 09/11/19 04:00 24 09/11/19 04:00 68 09/11/19 04:00 Mechanical Ventilator 09/11/19 03:10 63 12 24 09/11/19 01:02 68 12 24 09/11/19 00:00 Mechanical Ventilator 09/11/19 00:00 98.2 68 12 143/57 (85) 100 09/11/19 00:00 24 09/11/19 00:00 67 09/10/19 23:00 67 12 24 09/10/19 21:15 66 12 24 09/10/19 20:25 69 132/60 09/10/19 20:00 98.6 71 12 138/55 (82) 99 09/10/19 20:00 70 09/10/19 20:00 Mechanical Ventilator 09/10/19 20:00 24 09/10/19 19:20 70 12 24 09/10/19 16:54 68 09/10/19 16:00 Mechanical Ventilator 09/10/19 16:00 24 09/10/19 16:00 98.4 66 12 147/82 (103) 100 09/10/19 15:00 68 12 24 Intake and Output 09/10/19 09/11/19 19:00 07:00 Intake Total 660 ml 660 ml Output Total 0 ml 0 ml Balance 660 ml 660 ml Free Water 50 ml 60 ml IV Total 60 ml Tube Feeding 550 ml 600 ml Output Urine Total 0 ml 0 ml Stool Total 0 ml Laboratory Tests 09/10/19 17:05: POC Whole Blood Glucose 145H 09/11/19 11:23: POC Whole Blood Glucose 134H Height (Feet): 5 Height (Inches): 10.00 Weight (Pounds): 163 Objective CV RR Trach clean Lungs CTA New Perma Cath RIJ. Old Femoral [place] still in Rt. Groin! Abd SNT. BS + E No CCE Erica Pichardo MD Sep 11, 2019 14:28
--- NOTE | 2019-09-11 14:39 | NUR ---
NURSE NOTES: confirmed HD for tomorrow with Nehemias from [facility] dialysis center
--- NOTE | 2019-09-11 15:13 | NUR ---
CASE MANAGEMENT:Note manager therapy left a VM for Zaida CM assigned to call back with any updates for placement [facility] REF# [id number] NCM:ZAIDA P:[phone] F:[phone] Addendum: 09/11/19 at 1544 by [facility]A [facility]UN [facility] but waiting for bed at [facility] T: [phone] Other facility attempted: [facility] T: [phone] No beds [facility] No beds [place] [phone] No admissions,D/T Public health governing admissions [facility] [phone] Not accepting new patients [facility] [phone] No beds [place] [phone] [facility] [phone] No HD Multiple calls made to [facility] but no response MARISABEL to be given my NCM Zaida Call made to Marilyn at [facility] but she is not available CM will call again S/W Zaida as well who has been attempting multiple time to reach [facility] but no response
--- NOTE | 2019-09-11 15:15 | NUR ---
DISCHARGE PLANNING: NOTE F/U CALL PLACED TO [facility] T: [phone] PH S/W Gill from facility; Marilyn to call back
[2019-09-11] MEDS ORDERED: NS 275ml ONE (17:17)
--- NOTE | 2019-09-11 18:59 | NUR ---
RESPIRATORY NOTE: Received pt on AC 12, 550VT, 24%, PEEP +5. Pt is trach-dependent w/ a cuffed, Portex 8 tube. Pt obtunded/disoriented. B/S ovi. rhonchi/diminished, sxn small to moderate amounts of thick/thin, perez-yellow secretions. Vent plugged into red outlet, ambubag at bedside. Pt in no apparent distress at this time. Will continue plan of care.
--- NOTE | 2019-09-11 19:32 | NUR ---
HAND-OFF: Report given to TAMICA Muhammad. Pt remains stable.
--- NOTE | 2019-09-11 19:33 | NUR ---
NURSE NOTES: received pt from Min RN., pt is awake and resting on the bed at this time. no SOB noted. pt O2sat is at 100%. pt's Gtube site intact, clean, and patent. right subclavian PermCath and left FA 22G IV site intact, clean, and patent. rectal tube in place draining well with gravity call light within reach. will continue to monitor pt with plan of care.
[2019-09-11] MEDS: Epoetin Alfa-EPBX(ESRD on dialysis)10,000 unit/ml vial SUBQ SCH (20:34)
[2019-09-11] MEDS: Atorvastatin 20mg tab GT SCH (20:34)
[2019-09-11] MEDS: Dyna-Hex 2% Top Sol 2oz TOPIC SCH (20:34)
--- NOTE | 2019-09-11 22:58 | General Progress Note ---
Assessment/Plan Assessment/Plan: Assessment - colonoscopy negative to hepatic flexure - diarrhea - presumed TF related - abnormal LFT - Anemia - leukocytosis - resolved thrombocytosis - stool OB (+) - EGD --> gastritis - Renal failure - Anasarca - resp failure, trach - dysphagia, GT - encephalopathy, contracted - poor px Recommendations - Continue TF - Elevate HOB - f/u Biopsies of colon --> negative - PPI - abx - supportive care Subjective Allergies: Coded Allergies: No Known Allergies (Unverified , 06/10/19) Subjective Above noted no events tolerating TF d/w staff midwife/apprenticeship director Objective Last 24 Hour Vital Signs Date Time Temp Pulse Resp B/P (MAP) Pulse Ox O2 Delivery O2 Flow Rate FiO2 09/11/19 21:05 69 12 24 09/11/19 20:35 69 116/55 09/11/19 20:00 24 09/11/19 20:00 Mechanical Ventilator 09/11/19 20:00 97.9 69 12 116/55 (75) 99 09/11/19 19:02 68 09/11/19 18:56 70 12 24 09/11/19 18:00 69 14 114/50 (71) 100 09/11/19 17:15 83 12 24 09/11/19 16:07 167/88 09/11/19 16:00 24 09/11/19 16:00 Mechanical Ventilator 09/11/19 16:00 98.2 65 14 167/88 (114) 100 09/11/19 16:00 69 09/11/19 14:50 69 12 24 09/11/19 13:12 69 12 24 09/11/19 12:00 24 09/11/19 12:00 66 09/11/19 12:00 Mechanical Ventilator 09/11/19 11:34 97.9 64 14 150/70 (96) 99 09/11/19 11:02 64 12 24 09/11/19 08:39 69 12 24 09/11/19 08:24 68 157/78 09/11/19 08:24 157/78 09/11/19 08:00 69 09/11/19 08:00 Mechanical Ventilator 09/11/19 08:00 97.9 68 12 157/78 (104) 99 09/11/19 08:00 24 09/11/19 07:14 67 12 24 09/11/19 05:24 68 12 24 09/11/19 04:00 97.9 60 12 149/66 (93) 100 09/11/19 04:00 24 09/11/19 04:00 68 09/11/19 04:00 Mechanical Ventilator 09/11/19 03:10 63 12 24 09/11/19 01:02 68 12 24 09/11/19 00:00 Mechanical Ventilator 09/11/19 00:00 98.2 68 12 143/57 (85) 100 09/11/19 00:00 24 09/11/19 00:00 67 09/10/19 23:00 67 12 24 Intake and Output 09/10/19 09/11/19 19:00 07:00 Intake Total 660 ml 660 ml Output Total 0 ml 0 ml Balance 660 ml 660 ml Free Water 50 ml 60 ml IV Total 60 ml Tube Feeding 550 ml 600 ml Output Urine Total 0 ml 0 ml Stool Total 0 ml Laboratory Tests 09/11/19 11:23: POC Whole Blood Glucose 134H 09/11/19 17:45: POC Whole Blood Glucose 159H Height (Feet): 5 Height (Inches): 10.00 Weight (Pounds): 163 Objective Debilitated AA man NCAT (+) trach coarse BS RR abd distended, anasarca, (+) GT ext (+) edema contracted Ronny Mustafa MD Sep 11, 2019 22:58
[2019-09-12] VITALS: BP 127/51
[2019-09-12 04:00] VITALS: BP 130/59
--- NOTE | 2019-09-12 04:00 | NUR ---
NURSE NOTES: cleaned pt, oral care given, new gown and new blanket provided. will continue to monitor pt with plan of care. call light within reach. no SOB noted.
[2019-09-12 04:54] LABS: HEMATOCRIT 29.1 % (42.0-52.0); MEAN CORPUSCULAR VOLUME 86 FL (80-99); PLATELET COUNT 404 K/UL (150-450); RED CELL DISTRIBUTION WIDTH 18.4 % (11.6-14.8); WHITE BLOOD COUNT 19.1 K/UL (4.8-10.8)
--- NOTE | 2019-09-12 04:59 | NUR ---
NURSE NOTES: spoke with Gel from [facility] HD for today.
[2019-09-12] MEDS: NovoLOG Insulin Flexpen SUBQ SCH ×3 (05:17→17:39)
[2019-09-12 05:28] LABS: ANION GAP 7 mmol/L (5-15); BLOOD UREA NITROGEN 74 mg/dL (7-18); CALCIUM 8.9 MG/DL (8.5-10.1); CARBON DIOXIDE 32 MMOL/L (21-32); CHLORIDE 99 MMOL/L (98-107); CREATININE 3.7 MG/DL (0.55-1.30); POTASSIUM 4.3 MMOL/L (3.5-5.1); SODIUM 138 MMOL/L (136-145)
--- NOTE | 2019-09-12 07:30 | NUR ---
NURSE NOTES: Report received from Ana Evans RN.Pt resting in bed asleep noted no resp distress,with trach tube to vent,ordered vent settings tolerated ,no signs of pain or discomfort,SR on the monitor,GTF Vital AF 1.2 at 50 ml/hr ,no residual noted, anuric,pt on HD,Rectal tube in placed,draining liquid brown stools,skin warm and dry with IV site to LFA intact with RT SC Perma cath,SR up x 2 HOB elevated,bed lock in lowest position,will continue with plans of care.
--- NOTE | 2019-09-12 07:30 | NUR ---
HAND-OFF: Report given to Loli DAVEY., pt is stable condition, endorsed plan of care.
[2019-09-12 08:00] VITALS: BP 126/58
[2019-09-12] MEDS: Minoxidil 2.5mg tab GT SCH (09:00)
[2019-09-12] MEDS ORDERED: Heparin Sod 1000 units/ml 10ml IV PRN (09:00)
[2019-09-12] MEDS: Metoprolol Tartrate 100mg tab GT SCH ×2 (09:00→20:30)
[2019-09-12] MEDS ORDERED: Heparin 5000 units/ml inj INJ SCH (09:00)
--- NOTE | 2019-09-12 09:34 | NUR ---
DISCHARGE PLANNING NOTE F/U CALL PLACED TO [facility] T: [phone] PH SPOKE WITH REMY AT [facility] WHO STATED, PER CARIE, THEY WILL ACCEPT WHEN WBC IS LOWER AND RECTAL TUBE DISCONTINUED. MARISABEL IS STILL PENDING TODAY WBC+ 19.1
[2019-09-12] MEDS: Zinc Oxide Oint 2oz TOPIC SCH ×2 (10:18→17:41)
--- NOTE | 2019-09-12 10:38 | Infectious Diseases Prog Note ---
Assessment/Plan Assessment/Plan antibiotics : gentamicin 7.29.20- A 1. klebsiella catheter infection s/p rx 2. respiratory failure 3. leucocytosis 4. klebsiella, pseudomonas, providencia pneumonia s/p rx COVID 19 test negative x 2 5. renal failure on HD P 1. d/c iv gentamicin 2. observe off antibiotics 2. will follow up cultures Subjective ROS Limited/Unobtainable: Yes Allergies: Coded Allergies: No Known Allergies (Unverified , 06/10/19) Objective Last 24 Hour Vital Signs Date Time Temp Pulse Resp B/P (MAP) Pulse Ox O2 Delivery O2 Flow Rate FiO2 09/12/19 09:30 67 12 24 09/12/19 09:00 67 126/58 09/12/19 09:00 126/58 09/12/19 08:00 24 09/12/19 08:00 Mechanical Ventilator 09/12/19 08:00 66 09/12/19 08:00 98.1 60 12 126/58 (80) 99 09/12/19 07:08 69 12 24 09/12/19 05:01 73 12 24 09/12/19 04:00 Mechanical Ventilator 09/12/19 04:00 98.2 60 12 130/59 (82) 99 09/12/19 04:00 24 09/12/19 03:30 72 09/12/19 03:16 71 12 09/12/19 00:54 69 12 24 09/12/19 00:00 24 09/12/19 00:00 98.2 71 12 127/51 (76) 99 09/12/19 00:00 Mechanical Ventilator 09/11/19 23:33 69 09/11/19 23:10 69 12 24 09/11/19 21:05 69 12 24 09/11/19 20:35 69 116/55 09/11/19 20:00 24 09/11/19 20:00 Mechanical Ventilator 09/11/19 20:00 97.9 69 12 116/55 (75) 99 09/11/19 19:02 68 09/11/19 18:56 70 12 24 09/11/19 18:00 69 14 114/50 (71) 100 09/11/19 17:15 83 12 24 09/11/19 16:07 167/88 09/11/19 16:00 24 09/11/19 16:00 Mechanical Ventilator 09/11/19 16:00 98.2 65 14 167/88 (114) 100 09/11/19 16:00 69 09/11/19 14:50 69 12 24 09/11/19 13:12 69 12 24 09/11/19 12:00 24 09/11/19 12:00 66 09/11/19 12:00 Mechanical Ventilator 09/11/19 11:34 97.9 64 14 150/70 (96) 99 09/11/19 11:02 64 12 24 Height (Feet): 5 Height (Inches): 10.00 Weight (Pounds): 162 HEENT: status post trach Respiratory/Chest: lungs clear Cardiovascular: normal rate, regular rhythm, no gallop/murmur Abdomen: soft, non tender, other - GT Extremities: other - + edema, right subclavian catheter Laboratory Tests Test 09/11/19 11:23 09/11/19 17:45 09/11/19 23:32 09/12/19 03:00 POC Whole Blood Glucose 134 MG/DL (74-106) H 159 MG/DL (74-106) H 152 MG/DL (74-106) H White Blood Count 19.1 K/UL (4.8-10.8) H Red Blood Count 3.40 M/UL (4.70-6.10) L Hemoglobin 9.0 G/DL (14.2-18.0) L Hematocrit 29.1 % (42.0-52.0) L Mean Corpuscular Volume 86 FL (80-99) Mean Corpuscular Hemoglobin 26.4 PG (27.0-31.0) L Mean Corpuscular Hemoglobin Concent 30.8 G/DL (32.0-36.0) L Red Cell Distribution Width 18.4 % (11.6-14.8) H Platelet Count 404 K/UL (150-450) Mean Platelet Volume 6.5 FL (6.5-10.1) Neutrophils (%) (Auto) % (45.0-75.0) Lymphocytes (%) (Auto) % (20.0-45.0) Monocytes (%) (Auto) % (1.0-10.0) Eosinophils (%) (Auto) % (0.0-3.0) Basophils (%) (Auto) % (0.0-2.0) Differential Total Cells Counted 100 Neutrophils % (Manual) 68 % (45-75) Lymphocytes % (Manual) 20 % (20-45) Monocytes % (Manual) 7 % (1-10) Eosinophils % (Manual) 5 % (0-3) H Basophils % (Manual) 0 % (0-2) Band Neutrophils 0 % (0-8) Platelet Estimate Adequate Platelet Morphology Normal Hypochromasia 1+ Anisocytosis 1+ Sodium Level 138 MMOL/L (136-145) Potassium Level 4.3 MMOL/L (3.5-5.1) Chloride Level 99 MMOL/L (98-107) Carbon Dioxide Level 32 MMOL/L (21-32) Anion Gap 7 mmol/L (5-15) Blood Urea Nitrogen 74 mg/dL (7-18) H Creatinine 3.7 MG/DL (0.55-1.30) H Estimat Glomerular Filtration Rate 16.0 mL/min (>60) Glucose Level 136 MG/DL (74-106) H Calcium Level 8.9 MG/DL (8.5-10.1) Test 09/12/19 05:13 POC Whole Blood Glucose 153 MG/DL (74-106) H Current Medications Medications (Trade) Dose Ordered Sig/Leonel Route PRN Reason Start Time Stop Time Status Last Admin Dose Admin Acetaminophen (Tylenol) 650 mg Q4H PRN GT Mild Pain (Pain Scale 1-3) 09/09/19 00:45 10/09/19 00:44 09/09/19 00:44 Atorvastatin Calcium (Lipitor) 40 mg BEDTIME GT 08/09/19 21:00 11/07/19 20:59 09/11/19 20:34 Chlorhexidine Gluconate (Felipa-Hex 2%) 1 applic DAILY@1999 TOPIC 09/12/19 20:00 12/11/19 19:59 Clonidine HCl (Catapres Tab) 0.1 mg Q4H PRN GT For High Blood Pressure 09/09/19 12:30 12/08/19 05:29 09/11/19 16:07 Dextrose (Dextrose 50%) 25 ml Q30M PRN IV Hypoglycemia 08/09/19 07:30 11/07/19 07:29 Dextrose (Dextrose 50%) 50 ml Q30M PRN IV Hypoglycemia 08/09/19 07:30 11/07/19 07:29 Epoetin Andreas (Epoetin Andreas(ESRD on dialysis)) 10,000 unit WED-WED-WED SUBQ 08/18/19 21:00 11/16/19 20:59 09/11/19 20:34 Famotidine (Pepcid) 20 mg DAILY GT 08/30/19 09:00 11/28/19 08:59 09/12/19 10:18 Gentamicin Protocol (Gentamicin pharmacy to dose) 1 ea DAILY PRN MISC PER RX PROTOCOL 09/06/19 11:00 09/12/19 23:59 Heparin Sodium (Porcine) (Heparin 5000 units/ml) 5,000 units POSTHD INJ 09/12/19 09:00 09/12/19 23:59 Heparin Sodium (Porcine) (Heparin Sod 1000 units/ml 10ml) 2,000 unit ONCE PRN IV dialysis 09/12/19 09:00 09/12/19 23:59 Insulin Aspart (NovoLOG) Q6HR SUBQ 08/10/19 00:00 11/07/19 11:29 09/12/19 05:17 Metoprolol Tartrate (Lopressor) 200 mg Q12HR GT 08/09/19 09:00 11/07/19 08:59 09/11/19 20:35 Minoxidil (Loniten) 5 mg DAILY GT 08/09/19 09:00 11/07/19 08:59 09/11/19 08:24 Sodium Chloride 1,000 ml @ 500 mls/hr Q2H PRN IVLG sbp<90 during hd 09/12/19 09:00 09/12/19 23:59 Zinc Oxide (Zinc Oxide) 1 applic BID TOPIC 08/10/19 18:00 11/08/19 17:59 09/12/19 10:18 Farnaz Lyle MD Sep 12, 2019 10:38
--- NOTE | 2019-09-12 11:30 | NUR ---
NURSE NOTES: With ongoing Hemodialysis ,HD nurse at bedside,no distress presented tolerating well.
--- NOTE | 2019-09-12 11:45 | Hematology/Onc Progress Note ---
Assessment/Plan Assessment/Plan Assessment/recs # Leukocytosis - with multiple infections, VRE UTI, flow is negative --> wbc trend 33-->28-->25->23->22->23->24->17.3-->17-->14->16-->15.6-->14-->14- >13->19->18->17->22->22->19 --> on abx, linezolid and zosyn--> zosyn-->gent-->off --> + blood cultures with coag neg staph likely contaminated --> as per id recs --> has ordered a flow cytometry (with pathology) --> does show increased nK cell activity --> JOURDAN 2 and bcr-abl labs ordered (these are send outs) --> plt 585-->613-->649-->669->663 # Anemia due to chronic disease/kidney disease as well, gi bleed + occult + noted --> was on iron in the past, now on hold --> has been started on Epogen sq --> as per renal care --> egd done and shows gastritis --> on ppi --> egd showed gastritis, colo recently done --> hgb 9-->8.7-->7.6-->9.2-->8.9-->9.2->9.3-->8.8->9.9-->9.2-->8.1-->8.7-->7.9 # Respiratory failure --> per pulm, s/p trach --> COVID 19 test negative x 2 # Dysphagia s/p gtube with nepro --> per gi # ESRD with r fem julito --> hd as per renal # Dvt ppx scds Appreciate consultation and matt Rn Subjective HEENT: Denies: no symptoms, eye pain, blurred vision, tearing, double vision, ear pain, ear discharge, nose pain, nose congestion, throat pain, throat swelling, mouth pain, mouth swelling, other Cardiovascular: Denies: no symptoms, chest pain, edema, irregular heart rate, lightheadedness, palpitations, syncope, other Respiratory: Denies: no symptoms, cough, shortness of breath, SOB with excertion, SOB at rest, sputum, wheezing, other Genitourinary: Denies: no symptoms, burning, discharge, frequency, flank pain, hematuria, incontinence, pain, urgency, other Neurologic/Psychiatric: Denies: no symptoms, anxiety, depressed, emotional problems, headache, numbness, paresthesia, pre-existing deficit, seizure, tingling, tremors, weakness, other Endocrine: Denies: no symptoms, excessive sweating, flushing, intolerance to cold, intolerance to heat, increased hunger, increased thirst, increased urine, unexplained weight gain, unexplained weight loss, other Allergies: Coded Allergies: No Known Allergies (Unverified , 06/10/19) Subjective 08/15 meds noted, no bleeding, hgb 8.8, wbc 28, path flow pending 08/16 flow pending dw pathologist, results pending, wbc 25, hgb 9 08/17 labs reviewed, meds reviewed, meds noted, no night sweats 08/19 remains obtunded, on vent/trach, no bleeding wbc 21.7 08/20 labs have been reviewed, no bleeding, wbc still elev, path reviewed 08/21 labs are noted, no bleeding, on vent, wbc better 08/22 labs noted, no bleeding, meds reviewed, wbc 24 hgb 7.6 08/23 vent, off abx, c diff negative, h/h stable 08/24 labs reviewed, on abx, wbc 17, hgb 8.9, no hemolysis 08/26 reviewed flow and is negative for leukemia, matt rn 08/27 meds reviewed, no night sweats, matt rn, no major bleeding 08/28 meds reivewed, labs noted 08/29 wbc is stable, approx 15, hgb 8.8, no hemolysis 08/30 labs are noted, is for colo today, hgb 9.9 08/31 right fem julito in place, unchanged, hgb 9.2, gi aware 09/01 labs noted, hgb 8.8, plt >600, no bleeding 09/02 labs noted, no bleeding, with elev wbc still, no new changes 09/03 meds are noted, no bleeding, labs reviewed hgb 8.6 09/04 no major events, hd as per renal, abx, no bleeding hgb low 09/05 labs are noted, no bleeding, meds have been reviewed 09/06 no new labs no hemolysis, cbc is noted, no bleeding 09/07 meds reviewed, no bleeding, matt rn, [facility]09 meds reviewed, wbc still elevated, as per id recs, cbc noted 09/10 is obtunded, with gutbe in place, labs reviewed 09/11 obtunded, as per id, observe now off abx, labs noted, wbc 19 Objective Objective Current Medications Medications (Trade) Dose Ordered Sig/Leonel Route PRN Reason Start Time Stop Time Status Last Admin Dose Admin Acetaminophen (Tylenol) 650 mg Q4H PRN GT Mild Pain (Pain Scale 1-3) 09/09/19 00:45 10/09/19 00:44 09/09/19 00:44 Atorvastatin Calcium (Lipitor) 40 mg BEDTIME GT 08/09/19 21:00 11/07/19 20:59 09/11/19 20:34 Chlorhexidine Gluconate (Felipa-Hex 2%) 1 applic DAILY@1999 TOPIC 09/12/19 20:00 12/11/19 19:59 Clonidine HCl (Catapres Tab) 0.1 mg Q4H PRN GT For High Blood Pressure 09/09/19 12:30 12/08/19 05:29 09/11/19 16:07 Dextrose (Dextrose 50%) 25 ml Q30M PRN IV Hypoglycemia 08/09/19 07:30 11/07/19 07:29 Dextrose (Dextrose 50%) 50 ml Q30M PRN IV Hypoglycemia 08/09/19 07:30 11/07/19 07:29 Epoetin Andreas (Epoetin Andreas(ESRD on dialysis)) 10,000 unit MON-WED-WED SUBQ 08/18/19 21:00 11/16/19 20:59 09/11/19 20:34 Famotidine (Pepcid) 20 mg DAILY GT 08/30/19 09:00 11/28/19 08:59 09/12/19 10:18 Gentamicin Protocol (Gentamicin pharmacy to dose) 1 ea DAILY PRN MISC PER RX PROTOCOL 09/06/19 11:00 09/12/19 23:59 Heparin Sodium (Porcine) (Heparin 5000 units/ml) 5,000 units POSTHD INJ 09/12/19 09:00 09/12/19 23:59 Heparin Sodium (Porcine) (Heparin Sod 1000 units/ml 10ml) 2,000 unit ONCE PRN IV dialysis 09/12/19 09:00 09/12/19 23:59 Insulin Aspart (NovoLOG) Q6HR SUBQ 08/10/19 00:00 11/07/19 11:29 09/12/19 05:17 Metoprolol Tartrate (Lopressor) 200 mg Q12HR GT 08/09/19 09:00 11/07/19 08:59 09/11/19 20:35 Minoxidil (Loniten) 5 mg DAILY GT 08/09/19 09:00 11/07/19 08:59 09/11/19 08:24 Sodium Chloride 1,000 ml @ 500 mls/hr Q2H PRN IVLG sbp<90 during hd 09/12/19 09:00 09/12/19 23:59 Zinc Oxide (Zinc Oxide) 1 applic BID TOPIC 08/10/19 18:00 11/08/19 17:59 09/12/19 10:18 Last 24 Hour Vital Signs Date Time Temp Pulse Resp B/P (MAP) Pulse Ox O2 Delivery O2 Flow Rate FiO2 09/12/19 11:30 72 15 24 09/12/19 09:30 67 12 24 09/12/19 09:00 67 126/58 09/12/19 09:00 126/58 09/12/19 08:00 24 09/12/19 08:00 Mechanical Ventilator 09/12/19 08:00 66 09/12/19 08:00 98.1 60 12 126/58 (80) 99 09/12/19 07:08 69 12 24 09/12/19 05:01 73 12 24 09/12/19 04:00 Mechanical Ventilator 09/12/19 04:00 98.2 60 12 130/59 (82) 99 09/12/19 04:00 24 09/12/19 03:30 72 09/12/19 03:16 71 12 24 09/12/19 00:54 69 12 24 09/12/19 00:00 24 09/12/19 00:00 98.2 71 12 127/51 (76) 99 09/12/19 00:00 Mechanical Ventilator 09/11/19 23:33 69 09/11/19 23:10 69 12 24 09/11/19 21:05 69 12 24 09/11/19 20:35 69 116/55 09/11/19 20:00 24 09/11/19 20:00 Mechanical Ventilator 09/11/19 20:00 97.9 69 12 116/55 (75) 99 09/11/19 19:02 68 09/11/19 18:56 70 12 24 09/11/19 18:00 69 14 114/50 (71) 100 09/11/19 17:15 83 12 24 09/11/19 16:07 167/88 09/11/19 16:00 24 09/11/19 16:00 Mechanical Ventilator 09/11/19 16:00 98.2 65 14 167/88 (114) 100 09/11/19 16:00 69 09/11/19 14:50 69 12 24 09/11/19 13:12 69 12 24 09/11/19 12:00 24 09/11/19 12:00 66 09/11/19 12:00 Mechanical Ventilator 09/11/19 11:34 97.9 64 14 150/70 (96) 99 09/11/19 11:02 64 12 24 09/11/19 08:39 69 12 24 09/11/19 08:24 68 157/78 09/11/19 08:24 157/78 09/11/19 08:00 69 09/11/19 08:00 Mechanical Ventilator 09/11/19 08:00 97.9 68 12 157/78 (104) 99 09/11/19 08:00 24 09/11/19 07:14 67 12 24 09/11/19 05:24 68 12 24 09/11/19 04:00 97.9 60 12 149/66 (93) 100 09/11/19 04:00 24 09/11/19 04:00 68 09/11/19 04:00 Mechanical Ventilator 09/11/19 03:10 63 12 24 09/11/19 01:02 68 12 24 09/11/19 00:00 Mechanical Ventilator 09/11/19 00:00 98.2 68 12 143/57 (85) 100 09/11/19 00:00 24 09/11/19 00:00 67 09/10/19 23:00 67 12 24 09/10/19 21:15 66 12 24 8/2/20 20:25 69 132/60 09/10/19 20:00 98.6 71 12 138/55 (82) 99 09/10/19 20:00 70 09/10/19 20:00 Mechanical Ventilator 09/10/19 20:00 24 09/10/19 19:20 70 12 24 09/10/19 16:54 68 09/10/19 16:00 Mechanical Ventilator 09/10/19 16:00 24 09/10/19 16:00 98.4 66 12 147/82 (103) 100 09/10/19 15:00 68 12 24 09/10/19 13:00 65 12 24 09/10/19 12:00 66 09/10/19 12:00 98.2 66 13 126/56 (79) 96 09/10/19 12:00 Mechanical Ventilator 09/10/19 12:00 24 Intake and Output 09/11/19 09/12/19 19:00 07:00 Intake Total 660 ml 690 ml Output Total 30 ml 30 ml Balance 630 ml 660 ml Free Water 90 ml Tube Feeding 600 ml 600 ml Other 60 ml Output Urine Total 0 ml Stool Total 30 ml 30 ml Labs Test 09/09/19 11:50 09/09/19 17:12 09/10/19 03:31 09/10/19 11:56 POC Whole Blood Glucose 127 MG/DL (74-106) 155 MG/DL (74-106) 135 MG/DL (74-106) Random Gentamicin Level 1.0 ug/mL Test 09/10/19 17:05 09/11/19 11:23 09/11/19 17:45 09/11/19 23:32 POC Whole Blood Glucose 145 MG/DL (74-106) 134 MG/DL (74-106) 159 MG/DL (74-106) 152 MG/DL (74-106) Test 09/12/19 03:00 09/12/19 05:13 White Blood Count 19.1 K/UL (4.8-10.8) Red Blood Count 3.40 M/UL (4.70-6.10) Hemoglobin 9.0 G/DL (14.2-18.0) Hematocrit 29.1 % (42.0-52.0) Mean Corpuscular Volume 86 FL (80-99) Mean Corpuscular Hemoglobin 26.4 PG (27.0-31.0) Mean Corpuscular Hemoglobin Concent 30.8 G/DL (32.0-36.0) Red Cell Distribution Width 18.4 % (11.6-14.8) Platelet Count 404 K/UL (150-450) Mean Platelet Volume 6.5 FL (6.5-10.1) Neutrophils (%) (Auto) % (45.0-75.0) Lymphocytes (%) (Auto) % (20.0-45.0) Monocytes (%) (Auto) % (1.0-10.0) Eosinophils (%) (Auto) % (0.0-3.0) Basophils (%) (Auto) % (0.0-2.0) Differential Total Cells Counted 100 Neutrophils % (Manual) 68 % (45-75) Lymphocytes % (Manual) 20 % (20-45) Monocytes % (Manual) 7 % (1-10) Eosinophils % (Manual) 5 % (0-3) Basophils % (Manual) 0 % (0-2) Band Neutrophils 0 % (0-8) Platelet Estimate Adequate Platelet Morphology Normal Hypochromasia 1+ Anisocytosis 1+ Sodium Level 138 MMOL/L (136-145) Potassium Level 4.3 MMOL/L (3.5-5.1) Chloride Level 99 MMOL/L (98-107) Carbon Dioxide Level 32 MMOL/L (21-32) Anion Gap 7 mmol/L (5-15) Blood Urea Nitrogen 74 mg/dL (7-18) Creatinine 3.7 MG/DL (0.55-1.30) Estimat Glomerular Filtration Rate 16.0 mL/min (>60) Glucose Level 136 MG/DL (74-106) Calcium Level 8.9 MG/DL (8.5-10.1) POC Whole Blood Glucose 153 MG/DL (74-106) Height (Feet): 5 Height (Inches): 10.00 Weight (Pounds): 162 Objective Physical Exam General Appearance: nad, Chronically Ill Head: normocephalic Eyes: right eye PERRL - Will not open left eye ENT: moist mucus membranes Neck: other - submandibular mass R, fairly rigid with resistance to rotation to L, tracheotomy Respiratory: decreased breath sounds, crackles, other - pacemaker, vent+ Cardiovascular: regular rate, rhythm, edema - anasarca Gastrointestinal: non tender, distended, other - G tube Genitourinary: other Musculoskeletal: other - Contractures all extremities Neurologic: sensory intact, motor weakness, responsive Psychiatric: other Skin: Decubitus/Ulcer - Stage III right elbow, stage III left elbow, stage II sacrum, stage III scrotum, warm/dry Fitz Campos MD Sep 12, 2019 11:44
[2019-09-12 12:00] VITALS: BP 139/71
--- NOTE | 2019-09-12 12:56 | Nephrology Progress Note ---
Assessment/Plan Plan Sepsis - IV Abx Established ESRD - HD now TTS. DW HD RN. Extreme hypophosphatemia despite ESRD signifying severe malnutrition. Subjective Subjective Obtunded. On HD now. HD RN runs Qb @ 450 2nd time in a row despite order for Qb 300! Objective Objective Last 24 Hour Vital Signs Date Time Temp Pulse Resp B/P (MAP) Pulse Ox O2 Delivery O2 Flow Rate FiO2 09/12/19 11:30 72 15 24 09/12/19 09:30 67 12 24 09/12/19 09:00 67 126/58 09/12/19 09:00 126/58 09/12/19 08:00 24 09/12/19 08:00 Mechanical Ventilator 09/12/19 08:00 66 09/12/19 08:00 98.1 60 12 126/58 (80) 99 09/12/19 07:08 69 12 24 09/12/19 05:01 73 12 24 09/12/19 04:00 Mechanical Ventilator 09/12/19 04:00 98.2 60 12 130/59 (82) 99 09/12/19 04:00 24 09/12/19 03:30 72 09/12/19 03:16 71 12 24 09/12/19 00:54 69 12 24 09/12/19 00:00 24 09/12/19 00:00 98.2 71 12 127/51 (76) 99 09/12/19 00:00 Mechanical Ventilator 09/11/19 23:33 69 09/11/19 23:10 69 12 24 09/11/19 21:05 69 12 24 09/11/19 20:35 69 116/55 09/11/19 20:00 24 09/11/19 20:00 Mechanical Ventilator 09/11/19 20:00 97.9 69 12 116/55 (75) 99 09/11/19 19:02 68 09/11/19 18:56 70 12 24 09/11/19 18:00 69 14 114/50 (71) 100 09/11/19 17:15 83 12 24 09/11/19 16:07 167/88 09/11/19 16:00 24 09/11/19 16:00 Mechanical Ventilator 09/11/19 16:00 98.2 65 14 167/88 (114) 100 09/11/19 16:00 69 09/11/19 14:50 69 12 24 09/11/19 13:12 69 12 24 Intake and Output 09/11/19 09/12/19 19:00 07:00 Intake Total 660 ml 690 ml Output Total 30 ml 30 ml Balance 630 ml 660 ml Free Water 90 ml Tube Feeding 600 ml 600 ml Other 60 ml Output Urine Total 0 ml Stool Total 30 ml 30 ml Laboratory Tests 09/11/19 17:45: POC Whole Blood Glucose 159H 09/11/19 23:32: POC Whole Blood Glucose 152H 09/12/19 03:00: White Blood Count 19.1H, Red Blood Count 3.40L, Hemoglobin 9.0L, Hematocrit 29.1L, Mean Corpuscular Volume 86, Mean Corpuscular Hemoglobin 26.4L, Mean Corpuscular Hemoglobin Concent 30.8L, Red Cell Distribution Width 18.4H, Platelet Count 404, Mean Platelet Volume 6.5, Neutrophils (%) (Auto) , Lymphocytes (%) (Auto) , Monocytes (%) (Auto) , Eosinophils (%) (Auto) , Basophils (%) (Auto) , Differential Total Cells Counted 100, Neutrophils % ( Manual) 68, Lymphocytes % (Manual) 20, Monocytes % (Manual) 7, Eosinophils % ( Manual) 5H, Basophils % (Manual) 0, Band Neutrophils 0, Platelet Estimate Adequate, Platelet Morphology Normal, Hypochromasia 1+, Anisocytosis 1+, Sodium Level 138, Potassium Level 4.3, Chloride Level 99, Carbon Dioxide Level 32, Anion Gap 7, Blood Urea Nitrogen 74H, Creatinine 3.7H, Estimat Glomerular Filtration Rate 16.0, Glucose Level 136H, Calcium Level 8.9 09/12/19 05:13: POC Whole Blood Glucose 153H 09/12/19 12:27: POC Whole Blood Glucose 131H Height (Feet): 5 Height (Inches): 10.00 Weight (Pounds): 162 Objective CV RR Trach clean Lungs CTA New Perma Cath RIJ. Old Femoral Rancho still in Rt. Groin! Abd SNT. BS + E No CCE Erica Pichardo MD Sep 12, 2019 12:56
--- NOTE | 2019-09-12 14:09 | Surgery Progress Note ---
Surgery Progress Note Subjective Procedure Performed Right femoral temporary hemodialysis catheter removal Additional Comments ill appearing non responsive labs noted wbc 19k abx as per ID Objective Last 24 Hour Vital Signs Date Time Temp Pulse Resp B/P (MAP) Pulse Ox O2 Delivery O2 Flow Rate FiO2 09/12/19 12:00 24 09/12/19 12:00 Mechanical Ventilator 09/12/19 12:00 98.2 69 12 139/71 (93) 99 09/12/19 11:30 72 15 24 09/12/19 09:30 67 12 24 09/12/19 09:00 67 126/58 09/12/19 09:00 126/58 09/12/19 08:00 24 09/12/19 08:00 Mechanical Ventilator 09/12/19 08:00 66 09/12/19 08:00 98.1 60 12 126/58 (80) 99 09/12/19 07:08 69 12 24 09/12/19 05:01 73 12 24 09/12/19 04:00 Mechanical Ventilator 09/12/19 04:00 98.2 60 12 130/59 (82) 99 09/12/19 04:00 24 09/12/19 03:30 72 09/12/19 03:16 71 12 24 09/12/19 00:54 69 12 24 09/12/19 00:00 24 09/12/19 00:00 98.2 71 12 127/51 (76) 99 09/12/19 00:00 Mechanical Ventilator 09/11/19 23:33 69 09/11/19 23:10 69 12 24 09/11/19 21:05 69 12 24 09/11/19 20:35 69 116/55 09/11/19 20:00 24 09/11/19 20:00 Mechanical Ventilator 09/11/19 20:00 97.9 69 12 116/55 (75) 99 09/11/19 19:02 68 09/11/19 18:56 70 12 24 09/11/19 18:00 69 14 114/50 (71) 100 09/11/19 17:15 83 12 24 09/11/19 16:07 167/88 09/11/19 16:00 24 09/11/19 16:00 Mechanical Ventilator 09/11/19 16:00 98.2 65 14 167/88 (114) 100 09/11/19 16:00 69 09/11/19 14:50 69 12 24 I&O Intake and Output 09/11/19 09/12/19 19:00 07:00 Intake Total 660 ml 690 ml Output Total 30 ml 30 ml Balance 630 ml 660 ml Free Water 90 ml Tube Feeding 600 ml 600 ml Other 60 ml Output Urine Total 0 ml Stool Total 30 ml 30 ml Dressing: saturated Cardiovascular: RSR Respiratory: decreased breath sounds Abdomen: soft, present bowel sounds, non-distended Extremities: edema, no cyanosis Laboratory Tests Test 09/11/19 17:45 09/11/19 23:32 09/12/19 03:00 09/12/19 05:13 POC Whole Blood Glucose 159 MG/DL (74-106) H 152 MG/DL (74-106) H 153 MG/DL (74-106) H White Blood Count 19.1 K/UL (4.8-10.8) H Red Blood Count 3.40 M/UL (4.70-6.10) L Hemoglobin 9.0 G/DL (14.2-18.0) L Hematocrit 29.1 % (42.0-52.0) L Mean Corpuscular Volume 86 FL (80-99) Mean Corpuscular Hemoglobin 26.4 PG (27.0-31.0) L Mean Corpuscular Hemoglobin Concent 30.8 G/DL (32.0-36.0) L Red Cell Distribution Width 18.4 % (11.6-14.8) H Platelet Count 404 K/UL (150-450) Mean Platelet Volume 6.5 FL (6.5-10.1) Neutrophils (%) (Auto) % (45.0-75.0) Lymphocytes (%) (Auto) % (20.0-45.0) Monocytes (%) (Auto) % (1.0-10.0) Eosinophils (%) (Auto) % (0.0-3.0) Basophils (%) (Auto) % (0.0-2.0) Differential Total Cells Counted 100 Neutrophils % (Manual) 68 % (45-75) Lymphocytes % (Manual) 20 % (20-45) Monocytes % (Manual) 7 % (1-10) Eosinophils % (Manual) 5 % (0-3) H Basophils % (Manual) 0 % (0-2) Band Neutrophils 0 % (0-8) Platelet Estimate Adequate Platelet Morphology Normal Hypochromasia 1+ Anisocytosis 1+ Sodium Level 138 MMOL/L (136-145) Potassium Level 4.3 MMOL/L (3.5-5.1) Chloride Level 99 MMOL/L (98-107) Carbon Dioxide Level 32 MMOL/L (21-32) Anion Gap 7 mmol/L (5-15) Blood Urea Nitrogen 74 mg/dL (7-18) H Creatinine 3.7 MG/DL (0.55-1.30) H Estimat Glomerular Filtration Rate 16.0 mL/min (>60) Glucose Level 136 MG/DL (74-106) H Calcium Level 8.9 MG/DL (8.5-10.1) Test 09/12/19 12:27 POC Whole Blood Glucose 131 MG/DL (74-106) H Plan Problems: (1) Anemia (2) Hyponatremia (3) Leukocytosis Assessment & Plan: Tracheostomy, left chest pacemaker are again demonstrated. There is bilateral interstitial and airspace disease and bilateral pleural fluid again demonstrated. This appears more severe than on the prior study. Bilateral interstitial and airspace infiltrates versus edema. Bilateral pleural effusions Leukocytosis, anemia, tachycardia, abnormal labs. Wound evaluated and likely etiology of patient's sepsis. Leukocytosis etiology work-up antibiotics per infectious disease Appreciate nephrology input transfuse with dialysis We will follow with recommendations thank you allowing participation's care plan HD access temp HD discussed with medical teams line okay HD as per renal persistent leukocytosis flow cyto noted improving trending down right fem line removed (4) Ventilator dependent (5) Right lower lobe pneumonia (6) Hypokalemia (7) Hyperkalemia (8) Anasarca (9) Decubitus skin ulcer Assessment & Plan: pt presented on admission with generalized edemae.Skin assessed under tracheostomy and no areas of concerns noted. GT Insertion is marginally erythematous with small amt slough at stoma. Unstageable Pressure Injury R elbow. Base of wound is 100% yellow slough, Borders are erythematous. Wound oozing small amt haemopurulent exudate.Darker skin tone without elevation in skin temp or erythema periwound. Pt's penis and scrotum are grossly edematous and enlarged and weeping serous exudate from numerous sites both from penis and scrotum. Two small open wounds noted at base of at base of shaft of penis ,and contreras aspect of scrotum. Both wounds oozing large amt sanguineous and serosanguineous exudate. Multiple open wounds with Biofilm at base of each wounds noted to contreras/lateral,inferior and posterior aspects of scrotum. These wounds noted to be oozing moderate amts of serosanguineous exudate. Hypertrophic scar with scattered areas of hyperpigmentation noted to Sacrum. DTPI noted to L Buttocks (L)7cm x (W)9cm. Base of wound is purple and indurated.Darker skin tone without erythema, induration or fluctuance R and L ischial tuberosities. Both heels are boggy with non-blanchable erythema. Tx.Plan: Cleanse wound R elbow with Saline. Apply TheraHoney, Apply Moisture Barrier Paste periwound. Cover with Optifoam drsg.Change Daily and prn. Wash GT site with soap and water.Pat dry. Apply Zinc Oxide Paste to GT site Daily. Leave Open to Air. Apply Zinc Oxide Paste to entire Scrotum, Place ABD pads to R and L lateral, and posterior aspects of scrotum TWICE daily. Apply Cavilon Skin Barrier to malleoli and both Heels. Cover each site with Optifoam drsgs. Change every 7 days and prn. Reposition at least every 2hours or as tolerated. Off-load heels with Pillows. APM/BECCA Mattress overlay. (10) Malnutrition Assessment & Plan: DAILY ESTIMATED NEEDS: Needs based on Renal, critical care, wound/ 61kg 22-30 kcals/kg [id number] total kcals 1.25-2 g protein/kg 76-122 g total protein Fluid per MD, now on HD NUTRITION DIAGNOSIS: * Swallowing difficulty R/T respiratory failure, dysphagia as evidenced by trach/vent dep, PEG dep * Increased kcal/prot needs R/T wound healing as evidenced by admitted w/ multiple pressure injuries including full thickness wounds at junction of Shaft of penis, dorsal scrotum, R elbow, and DTPI @ L buttocks. CURRENT TF:Vital AF 1.2 @ 50ml/hr x 24 hrs + Garo BID ENTERAL NUTRITION RECOMMENDATIONS: Vital AF 1.2 @ 50ml/hr x 24 hrs to provide 1200ml, 1440kcal,9 0g prot, 973ml free water * Maintain elemental TF of Vital AF 1.2 w/ continued diarrhea -> monitor lytes and renal fxn closely, monitor need for renal T -> TF @ goal will provide 1642mg K and 2025mg Phos * HOB over 30 degrees/ water flush per MD * Continue Garo BID via PEG ADDITIONAL RECOMMENDATIONS: * Per SNF: HT=63" AN=826 lbs (vs EMR wt of 166lbs) -> obtain re-calibrated bedscale wt, rec daily wt monitoring * Wound healing: con't Nephrovite + Garo BID/ Vit C dosing per Nephro * Monitor renal fxn and lytes closely w/ non-renal TF - previously w/ multiple episodes of low K and phos - Check f/up phos (1. 0on 09/04) * Add probiotics and anti-diarrheal meds - prolonged diarrhea, +rectal tube (11) Uremia (12) CKD (chronic kidney disease) stage 5, GFR less than 15 ml/min (13) Colon distention Assessment & Plan: discussed with GI likely functional as having lots of loose bm rectal tube kub f/u s/p colonoscopy - findings reviewed with GI Marked distention of the sigmoid colon. 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 No evidence of bowel wall thickening or pneumatosis 12 mm focus of contrast enhancement in the right pectineus muscle. While nonspecific in appearance, appearance raises concern for a possible pseudoaneurysm. Ill- defined thickening of the pectus medius muscle could indicate some intramuscular hemorrhage. The above findings were phoned to Dr. Urias at the time of interpretation Large bilateral pleural effusions Hazy pulmonary parenchymal opacities as well as dense consolidative opacities most likely represent pulmonary edema, but could represent pneumonia Evidence of anasarca elsewhere, with generalized edema of the subcutaneous fat Bladder wall thickening, raises concern for cystitis. Avalos catheter in place Colonic diverticulosis. No evidence of diverticulitis. Tracheostomy Pacemaker Gastrostomy Jonathan Urias Sep 12, 2019 14:09
--- NOTE | 2019-09-12 14:15 | NUR ---
NURSE NOTES: Hemodialysis done ,took out 2L of fluid,no distress presented.
--- NOTE | 2019-09-12 14:45 | NUR ---
CASE MANAGEMENT: REVIEW SI: KLEBSIELLA, PSEUDOMONAS, PROVIDENCIA PNA . ESRD on HD T 98.1 HR 60 RR 12 BP 126/58 SAT 99% MECH VENT FIO2 24 WBC 19.1 H/H 9.0/29.1 GLUCOSE 131 FOLLOW UP ON CULTURES IS: EPOETIN SUBQ QMWF HEPARIN IV PRN HD HD NEEDED STEP DOWN UNIT STATUS DCP: PATIENT HAS BEEN ACCEPTED TO [facility]
--- NOTE | 2019-09-12 14:57 | NUR ---
INSURANCE UPDATED CLINICALS/REVIEW FAXED TO [facility] / [employer] MGMT REF# [id number] RIC:HARPER P:[phone] F:[phone]
--- NOTE | 2019-09-12 15:39 | General Progress Note ---
Assessment/Plan Assessment/Plan: Assessment - colonoscopy negative to hepatic flexure - diarrhea - presumed TF related - abnormal LFT - Anemia - leukocytosis - resolved thrombocytosis - stool OB (+) - EGD --> gastritis - Renal failure - Anasarca - resp failure, trach - dysphagia, GT - encephalopathy, contracted - poor px Recommendations - Continue TF - Elevate HOB - f/u Biopsies of colon --> negative - PPI - abx - supportive care Subjective Allergies: Coded Allergies: No Known Allergies (Unverified , 06/10/19) Subjective Above noted no events tolerating TF Objective Last 24 Hour Vital Signs Date Time Temp Pulse Resp B/P (MAP) Pulse Ox O2 Delivery O2 Flow Rate FiO2 09/12/19 12:00 24 09/12/19 12:00 74 09/12/19 12:00 Mechanical Ventilator 09/12/19 12:00 98.2 69 12 139/71 (93) 99 09/12/19 11:30 72 15 24 09/12/19 09:30 67 12 24 09/12/19 09:00 67 126/58 09/12/19 09:00 126/58 09/12/19 08:00 24 09/12/19 08:00 Mechanical Ventilator 09/12/19 08:00 66 09/12/19 08:00 98.1 60 12 126/58 (80) 99 09/12/19 07:08 69 12 24 09/12/19 05:01 73 12 24 09/12/19 04:00 Mechanical Ventilator 09/12/19 04:00 98.2 60 12 130/59 (82) 99 09/12/19 04:00 24 09/12/19 03:30 72 09/12/19 03:16 71 12 24 09/12/19 00:54 69 12 24 09/12/19 00:00 24 09/12/19 00:00 98.2 71 12 127/51 (76) 99 09/12/19 00:00 Mechanical Ventilator 09/11/19 23:33 69 09/11/19 23:10 69 12 24 09/11/19 21:05 69 12 24 09/11/19 20:35 69 116/55 09/11/19 20:00 24 09/11/19 20:00 Mechanical Ventilator 09/11/19 20:00 97.9 69 12 116/55 (75) 99 09/11/19 19:02 68 09/11/19 18:56 70 12 24 09/11/19 18:00 69 14 114/50 (71) 100 09/11/19 17:15 83 12 24 09/11/19 16:07 167/88 09/11/19 16:00 24 09/11/19 16:00 Mechanical Ventilator 09/11/19 16:00 98.2 65 14 167/88 (114) 100 09/11/19 16:00 69 Intake and Output 09/11/19 09/12/19 19:00 07:00 Intake Total 660 ml 690 ml Output Total 30 ml 30 ml Balance 630 ml 660 ml Free Water 90 ml Tube Feeding 600 ml 600 ml Other 60 ml Output Urine Total 0 ml Stool Total 30 ml 30 ml Laboratory Tests 09/11/19 17:45: POC Whole Blood Glucose 159H 09/11/19 23:32: POC Whole Blood Glucose 152H 09/12/19 03:00: White Blood Count 19.1H, Red Blood Count 3.40L, Hemoglobin 9.0L, Hematocrit 29.1L, Mean Corpuscular Volume 86, Mean Corpuscular Hemoglobin 26.4L, Mean Corpuscular Hemoglobin Concent 30.8L, Red Cell Distribution Width 18.4H, Platelet Count 404, Mean Platelet Volume 6.5, Neutrophils (%) (Auto) , Lymphocytes (%) (Auto) , Monocytes (%) (Auto) , Eosinophils (%) (Auto) , Basophils (%) (Auto) , Differential Total Cells Counted 100, Neutrophils % ( Manual) 68, Lymphocytes % (Manual) 20, Monocytes % (Manual) 7, Eosinophils % ( Manual) 5H, Basophils % (Manual) 0, Band Neutrophils 0, Platelet Estimate Adequate, Platelet Morphology Normal, Hypochromasia 1+, Anisocytosis 1+, Sodium Level 138, Potassium Level 4.3, Chloride Level 99, Carbon Dioxide Level 32, Anion Gap 7, Blood Urea Nitrogen 74H, Creatinine 3.7H, Estimat Glomerular Filtration Rate 16.0, Glucose Level 136H, Calcium Level 8.9 09/12/19 05:13: POC Whole Blood Glucose 153H 09/12/19 12:27: POC Whole Blood Glucose 131H Height (Feet): 5 Height (Inches): 10.00 Weight (Pounds): 162 Objective Debilitated AA man NCAT (+) trach coarse BS RR abd distended, anasarca, (+) GT ext (+) edema contracted Ronny Mustafa MD Sep 12, 2019 15:39
[2019-09-12] MEDS ORDERED: Tubing IV Secondary IV ONE (15:41)
[2019-09-12 16:00] VITALS: BP 126/51
--- NOTE | 2019-09-12 19:30 | NUR ---
NURSE NOTES: received pt from Loli DAVEY., pt is awake and resting on the bed at this time. no SOB noted. pt O2sat is at 100%. pt's Gtube site intact, clean, and patent. right subclavian PermCath and left FA 22G IV site intact, clean, and patent. rectal tube in place draining well with gravity call light within reach. will continue to monitor pt with plan of care.
[2019-09-12 20:00] VITALS: BP 124/60
[2019-09-12] MEDS: Atorvastatin 20mg tab GT SCH (20:29)
[2019-09-12] MEDS: Dyna-Hex 2% Top Sol 2oz TOPIC SCH (20:29)
[2019-09-13] VITALS: BP 109/58
[2019-09-13] MEDS: NovoLOG Insulin Flexpen SUBQ SCH ×5 (00:41→23:09)
--- NOTE | 2019-09-13 01:56 | NUR ---
HAND-OFF: Report given to RONEY DAVEY., pt is in stable condition, endorsed plan of care. no active bleeding noted. no SOB noted.
--- NOTE | 2019-09-13 01:57 | NUR ---
NURSE NOTES: Received report from Ana Davis RN. Patient asleep, afebrile and no respiratory distress. V paced on 5 lead nutrition tech. On [facility] vent Portex 8, ac 12, TV 550, FiO2 24%, peep 5. With Left FA 22g IV line intact, patent and asymptomatic. With Right subclavian permacath intact, clean and asymptomatic. On Vital AF 50cc/hr via GT intact and infusing well. Hemodialysis 09/12/2019 and 2 liters out per endorsement. Needs were attended. HOB elevated. Bed rails are up and wheels are locked. Call light within reach. Continue plan of care.
[2019-09-13 04:00] VITALS: BP 166/77
--- NOTE | 2019-09-13 06:49 | NUR ---
NURSE NOTES: Placed a call to Dr River De Leon and left a voicemail regarding patient's HGb level of 7.0. Awaiting for response. Will endorse to Next shift to ff up Addendum: 09/13/19 at 0719 by RONEY Wang RN ERROR INPUT, WRONG PATIENT. PLEASE DISREGARD
--- NOTE | 2019-09-13 07:05 | NUR ---
HAND-OFF: Report given to TAMICA Celeste. Pt stable and in bed.
--- NOTE | 2019-09-13 07:06 | NUR ---
NURSE NOTES: Received patient form TAMICA SIM. Patient is obtunded, opens eyes without tracking, on secured entrance monitor, and no signs of distress. Patient is clean and passive. Trach to vent Portex 8 AC 12, TV 550, Fio2 24%, PEEP of 5. Rectal tube in place and draining to gravity. Patient is contracted an all extremities, right subclavian permacath and IV site on left FA 22g with no signs of infection. Bed at its lowest position, call light in reach, and x3 bed rails are up.
[2019-09-13 08:00] VITALS: BP 110/55
--- NOTE | 2019-09-13 08:10 | Hematology/Onc Progress Note ---
Assessment/Plan Assessment/Plan Assessment/recs # Leukocytosis - with multiple infections, VRE UTI, flow is negative --> wbc trend 33-->28-->25->23->22->23->24->17.3-->17-->14->16-->15.6-->14-->14- >13->19->18->17->22->22->19 --> on abx, linezolid and zosyn--> zosyn-->gent-->off --> + blood cultures with coag neg staph likely contaminated --> as per id recs --> has ordered a flow cytometry (with pathology) --> does show increased nK cell activity --> JOURDAN 2 and bcr-abl labs ordered (these are send outs) --> plt 585-->613-->649-->669->663 # Anemia due to chronic disease/kidney disease as well, gi bleed + occult + noted --> was on iron in the past, now on hold --> has been started on Epogen sq --> as per renal care --> egd done and shows gastritis --> on ppi --> egd showed gastritis, colo recently done --> hgb 9-->8.7-->7.6-->9.2-->8.9-->9.2->9.3-->8.8->9.9-->9.2-->8.1-->8.7-->7.9 # Respiratory failure --> per pulm, s/p trach --> COVID 19 test negative x 2 # Dysphagia s/p gtube with nepro --> per gi # ESRD with r fem julito --> hd as per renal # Dvt ppx scds Appreciate consultation and dw Rn Subjective Constitutional: Denies: no symptoms, chills, fever, malaise, weakness, other Cardiovascular: Denies: no symptoms, chest pain, edema, irregular heart rate, lightheadedness, palpitations, syncope, other Gastrointestinal/Abdominal: Denies: no symptoms, abdomen distended, abdominal pain, black stools, tarry stools, blood in stool, constipated, diarrhea, difficulty swallowing, nausea, poor appetite, poor fluid intake, rectal bleeding , vomiting, other Genitourinary: Denies: no symptoms, burning, discharge, frequency, flank pain, hematuria, incontinence, pain, urgency, other Neurologic/Psychiatric: Denies: no symptoms, anxiety, depressed, emotional problems, headache, numbness, paresthesia, pre-existing deficit, seizure, tingling, tremors, weakness, other Endocrine: Denies: no symptoms, excessive sweating, flushing, intolerance to cold, intolerance to heat, increased hunger, increased thirst, increased urine, unexplained weight gain, unexplained weight loss, other Hematologic/Lymphatic: Denies: no symptoms, anemia, easy bleeding, easy bruising, adenopathy, other Allergies: Coded Allergies: No Known Allergies (Unverified , 06/10/19) Subjective 08/15 meds noted, no bleeding, hgb 8.8, wbc 28, path flow pending 08/16 flow pending dw pathologist, results pending, wbc 25, hgb 9 08/17 labs reviewed, meds reviewed, meds noted, no night sweats 08/19 remains obtunded, on vent/trach, no bleeding wbc 21.7 08/20 labs have been reviewed, no bleeding, wbc still elev, path reviewed 08/21 labs are noted, no bleeding, on vent, wbc better 08/22 labs noted, no bleeding, meds reviewed, wbc 24 hgb 7.6 08/23 vent, off abx, c diff negative, h/h stable 08/24 labs reviewed, on abx, wbc 17, hgb 8.9, no hemolysis 08/26 reviewed flow and is negative for leukemia, matt rn 08/27 meds reviewed, no night sweats, matt rn, no major bleeding 08/28 meds reivewed, labs noted 08/29 wbc is stable, approx 15, hgb 8.8, no hemolysis 08/30 labs are noted, is for colo today, hgb 9.9 08/31 right fem julito in place, unchanged, hgb 9.2, gi aware 09/01 labs noted, hgb 8.8, plt >600, no bleeding 09/02 labs noted, no bleeding, with elev wbc still, no new changes 09/03 meds are noted, no bleeding, labs reviewed hgb 8.6 09/04 no major events, hd as per renal, abx, no bleeding hgb low 09/05 labs are noted, no bleeding, meds have been reviewed 09/06 no new labs no hemolysis, cbc is noted, no bleeding 09/07 meds reviewed, no bleeding, matt rn, permacat functioning well 09/09 meds reviewed, wbc still elevated, as per id recs, cbc noted 09/10 is obtunded, with gutbe in place, labs reviewed 09/11 obtunded, as per id, observe now off abx, labs noted, wbc 19 09/12 cbc is pending, remains on epogen, also off abx Objective Objective Current Medications Medications (Trade) Dose Ordered Sig/Leonel Route PRN Reason Start Time Stop Time Status Last Admin Dose Admin Acetaminophen (Tylenol) 650 mg Q4H PRN GT Mild Pain (Pain Scale 1-3) 09/09/19 00:45 10/09/19 00:44 09/09/19 00:44 Atorvastatin Calcium (Lipitor) 40 mg BEDTIME GT 08/09/19 21:00 11/07/19 20:59 09/12/19 20:29 Chlorhexidine Gluconate (Felipa-Hex 2%) 1 applic DAILY@1999 TOPIC 09/12/19 20:00 12/11/19 19:59 09/12/19 20:29 Clonidine HCl (Catapres Tab) 0.1 mg Q4H PRN GT For High Blood Pressure 09/09/19 12:30 12/08/19 05:29 09/13/19 03:11 Dextrose (Dextrose 50%) 25 ml Q30M PRN IV Hypoglycemia 08/09/19 07:30 11/07/19 07:29 Dextrose (Dextrose 50%) 50 ml Q30M PRN IV Hypoglycemia 08/09/19 07:30 11/07/19 07:29 Epoetin Andreas (Epoetin Andreas(ESRD on dialysis)) 10,000 unit WED-WED-WED SUBQ 08/18/19 21:00 11/16/19 20:59 09/11/19 20:34 Famotidine (Pepcid) 20 mg DAILY GT 08/30/19 09:00 11/28/19 08:59 09/12/19 10:18 Insulin Aspart (NovoLOG) Q6HR SUBQ 08/10/19 00:00 11/07/19 11:29 09/13/19 05:54 Metoprolol Tartrate (Lopressor) 200 mg Q12HR GT 08/09/19 09:00 11/07/19 08:59 09/12/19 20:30 Minoxidil (Loniten) 5 mg DAILY GT 08/09/19 09:00 11/07/19 08:59 09/11/19 08:24 Zinc Oxide (Zinc Oxide) 1 applic BID TOPIC 08/10/19 18:00 11/08/19 17:59 09/12/19 17:41 Last 24 Hour Vital Signs Date Time Temp Pulse Resp B/P (MAP) Pulse Ox O2 Delivery O2 Flow Rate FiO2 09/13/19 08:00 Mechanical Ventilator 09/13/19 08:00 98.4 60 12 110/55 (73) 100 09/13/19 08:00 24 09/13/19 04:34 73 12 24 09/13/19 04:00 Mechanical Ventilator 09/13/19 04:00 24 09/13/19 04:00 98.4 77 12 166/77 (106) 100 09/13/19 03:29 74 09/13/19 03:11 166/77 09/13/19 03:00 73 12 24 09/13/19 00:37 74 12 09/13/19 00:00 98.6 73 12 109/58 (75) 100 09/13/19 00:00 24 09/13/19 00:00 Mechanical Ventilator 09/13/19 00:00 72 09/12/19 22:52 71 12 24 09/12/19 20:48 74 12 24 09/12/19 20:30 80 124/52 09/12/19 20:00 Mechanical Ventilator 09/12/19 20:00 72 09/12/19 20:00 97.5 80 12 124/60 (81) 100 09/12/19 20:00 24 09/12/19 18:53 74 12 24 09/12/19 17:24 72 12 24 09/12/19 16:06 75 09/12/19 16:02 24 09/12/19 16:01 Mechanical Ventilator 09/12/19 16:00 98.1 75 12 126/51 (76) 100 09/12/19 15:25 75 12 24 09/12/19 12:00 24 09/12/19 12:00 74 09/12/19 12:00 Mechanical Ventilator 09/12/19 12:00 98.2 69 12 139/71 (93) 99 09/12/19 11:30 72 15 24 09/12/19 09:30 67 12 24 09/12/19 09:00 67 126/58 09/12/19 09:00 126/58 09/12/19 08:00 24 09/12/19 08:00 Mechanical Ventilator 09/12/19 08:00 66 09/12/19 08:00 98.1 60 12 126/58 (80) 99 09/12/19 07:08 69 12 24 09/12/19 05:01 73 12 24 09/12/19 04:00 Mechanical Ventilator 09/12/19 04:00 98.2 60 12 130/59 (82) 99 09/12/19 04:00 24 09/12/19 03:30 72 09/12/19 03:16 71 12 24 09/12/19 00:54 69 12 24 09/12/19 00:00 24 09/12/19 00:00 98.2 71 12 127/51 (76) 99 09/12/19 00:00 Mechanical Ventilator 09/11/19 23:33 69 09/11/19 23:10 69 12 24 09/11/19 21:05 69 12 24 09/11/19 20:35 69 116/55 09/11/19 20:00 24 09/11/19 20:00 Mechanical Ventilator 09/11/19 20:00 97.9 69 12 116/55 (75) 99 09/11/19 19:02 68 09/11/19 18:56 70 12 24 09/11/19 18:00 69 14 114/50 (71) 100 09/11/19 17:15 83 12 24 09/11/19 16:07 167/88 09/11/19 16:00 24 09/11/19 16:00 Mechanical Ventilator 09/11/19 16:00 98.2 65 14 167/88 (114) 100 09/11/19 16:00 69 09/11/19 14:50 69 12 24 09/11/19 13:12 69 12 24 09/11/19 12:00 24 09/11/19 12:00 66 09/11/19 12:00 Mechanical Ventilator 09/11/19 11:34 97.9 64 14 150/70 (96) 99 09/11/19 11:02 64 12 24 09/11/19 08:39 69 12 24 09/11/19 08:24 68 157/78 09/11/19 08:24 157/78 Intake and Output 09/12/19 09/13/19 19:00 07:00 Intake Total 910 ml 750 ml Output Total 2050 ml Balance -1140 ml 750 ml Free Water 250 ml 150 ml Tube Feeding 600 ml 600 ml Other 60 ml Stool Total 50 ml Hemodialysis UF 2000 ml # Voids 1 Labs Test 09/10/19 11:56 09/10/19 17:05 09/11/19 11:23 09/11/19 17:45 POC Whole Blood Glucose 135 MG/DL (74-106) 145 MG/DL (74-106) 134 MG/DL (74-106) 159 MG/DL (74-106) Test 09/11/19 23:32 09/12/19 03:00 09/12/19 05:13 09/12/19 12:27 POC Whole Blood Glucose 152 MG/DL (74-106) 153 MG/DL (74-106) 131 MG/DL (74-106) White Blood Count 19.1 K/UL (4.8-10.8) Red Blood Count 3.40 M/UL (4.70-6.10) Hemoglobin 9.0 G/DL (14.2-18.0) Hematocrit 29.1 % (42.0-52.0) Mean Corpuscular Volume 86 FL (80-99) Mean Corpuscular Hemoglobin 26.4 PG (27.0-31.0) Mean Corpuscular Hemoglobin Concent 30.8 G/DL (32.0-36.0) Red Cell Distribution Width 18.4 % (11.6-14.8) Platelet Count 404 K/UL (150-450) Mean Platelet Volume 6.5 FL (6.5-10.1) Neutrophils (%) (Auto) % (45.0-75.0) Lymphocytes (%) (Auto) % (20.0-45.0) Monocytes (%) (Auto) % (1.0-10.0) Eosinophils (%) (Auto) % (0.0-3.0) Basophils (%) (Auto) % (0.0-2.0) Differential Total Cells Counted 100 Neutrophils % (Manual) 68 % (45-75) Lymphocytes % (Manual) 20 % (20-45) Monocytes % (Manual) 7 % (1-10) Eosinophils % (Manual) 5 % (0-3) Basophils % (Manual) 0 % (0-2) Band Neutrophils 0 % (0-8) Platelet Estimate Adequate Platelet Morphology Normal Hypochromasia 1+ Anisocytosis 1+ Sodium Level 138 MMOL/L (136-145) Potassium Level 4.3 MMOL/L (3.5-5.1) Chloride Level 99 MMOL/L (98-107) Carbon Dioxide Level 32 MMOL/L (21-32) Anion Gap 7 mmol/L (5-15) Blood Urea Nitrogen 74 mg/dL (7-18) Creatinine 3.7 MG/DL (0.55-1.30) Estimat Glomerular Filtration Rate 16.0 mL/min (>60) Glucose Level 136 MG/DL (74-106) Calcium Level 8.9 MG/DL (8.5-10.1) Test 09/12/19 16:51 09/13/19 00:37 09/13/19 05:52 POC Whole Blood Glucose 142 MG/DL (74-106) 155 MG/DL (74-106) 145 MG/DL (74-106) Height (Feet): 5 Height (Inches): 10.00 Weight (Pounds): 165 Objective Physical Exam General Appearance: nad, Chronically Ill Head: normocephalic Eyes: right eye PERRL - Will not open left eye ENT: moist mucus membranes Neck: other - submandibular mass R, fairly rigid with resistance to rotation to L, tracheotomy Respiratory: decreased breath sounds, crackles, other - pacemaker, vent+ Cardiovascular: regular rate, rhythm, edema - anasarca Gastrointestinal: non tender, distended, other - G tube Genitourinary: other Musculoskeletal: other - Contractures all extremities Neurologic: sensory intact, motor weakness, responsive Psychiatric: other Skin: Decubitus/Ulcer - Stage III right elbow, stage III left elbow, stage II sacrum, stage III scrotum, warm/dry Fitz Campos MD Sep 13, 2019 08:10
[2019-09-13] MEDS: Metoprolol Tartrate 100mg tab GT SCH ×2 (08:52→20:44)
[2019-09-13] MEDS: Minoxidil 2.5mg tab GT SCH (08:53)
[2019-09-13] MEDS: Zinc Oxide Oint 2oz TOPIC SCH ×2 (08:54→17:50)
--- NOTE | 2019-09-13 09:19 | Nephrology Progress Note ---
Assessment/Plan Plan Sepsis - IV Abx Established ESRD - HD now TTS. DW HD RN. Extreme hypophosphatemia despite ESRD signifying severe malnutrition. Subjective Subjective Obtunded. Objective Objective Last 24 Hour Vital Signs Date Time Temp Pulse Resp B/P (MAP) Pulse Ox O2 Delivery O2 Flow Rate FiO2 09/13/19 09:14 70 12 24 09/13/19 08:53 110/55 09/13/19 08:52 60 110/55 09/13/19 08:00 Mechanical Ventilator 09/13/19 08:00 98.4 60 12 110/55 (73) 100 09/13/19 08:00 24 09/13/19 07:01 72 12 24 09/13/19 04:34 73 12 24 09/13/19 04:00 Mechanical Ventilator 09/13/19 04:00 24 09/13/19 04:00 98.4 77 12 166/77 (106) 100 09/13/19 03:29 74 09/13/19 03:11 166/77 09/13/19 03:00 73 12 24 09/13/19 00:37 74 12 24 09/13/19 00:00 98.6 73 12 109/58 (75) 100 09/13/19 00:00 24 09/13/19 00:00 Mechanical Ventilator 09/13/19 00:00 72 09/12/19 22:52 71 12 24 09/12/19 20:48 74 12 24 09/12/19 20:30 80 124/52 09/12/19 20:00 Mechanical Ventilator 09/12/19 20:00 72 09/12/19 20:00 97.5 80 12 124/60 (81) 100 09/12/19 20:00 24 09/12/19 18:53 74 12 24 09/12/19 17:24 72 12 24 09/12/19 16:06 75 09/12/19 16:02 24 09/12/19 16:01 Mechanical Ventilator 09/12/19 16:00 98.1 75 12 126/51 (76) 100 09/12/19 15:25 75 12 24 09/12/19 12:00 24 09/12/19 12:00 74 09/12/19 12:00 Mechanical Ventilator 09/12/19 12:00 98.2 69 12 139/71 (93) 99 09/12/19 11:30 72 15 24 09/12/19 09:30 67 12 24 Intake and Output 09/12/19 09/13/19 19:00 07:00 Intake Total 910 ml 750 ml Output Total 2050 ml Balance -1140 ml 750 ml Free Water 250 ml 150 ml Tube Feeding 600 ml 600 ml Other 60 ml Stool Total 50 ml Hemodialysis UF 2000 ml # Voids 1 Laboratory Tests 09/12/19 12:27: POC Whole Blood Glucose 131H 09/12/19 16:51: POC Whole Blood Glucose 142H 09/13/19 00:37: POC Whole Blood Glucose 155H 09/13/19 05:52: POC Whole Blood Glucose 145H Height (Feet): 5 Height (Inches): 10.00 Weight (Pounds): 165 Objective CV RR Trach clean Lungs CTA New Perma Cath RIJ. Old Femoral [place] still in Rt. Groin! Abd SNT. BS + E No CCE Erica Pichardo MD Sep 13, 2019 09:19
--- NOTE | 2019-09-13 09:28 | Surgery Progress Note ---
Surgery Progress Note Subjective Procedure Performed Right femoral temporary hemodialysis catheter removal Additional Comments HD with 2 L out labs noted exam unchanged ill appearing Objective Last 24 Hour Vital Signs Date Time Temp Pulse Resp B/P (MAP) Pulse Ox O2 Delivery O2 Flow Rate FiO2 09/13/19 09:14 70 12 24 09/13/19 08:53 110/55 09/13/19 08:52 60 110/55 09/13/19 08:00 Mechanical Ventilator 09/13/19 08:00 98.4 60 12 110/55 (73) 100 09/13/19 08:00 24 09/13/19 07:01 72 12 24 09/13/19 04:34 73 12 24 09/13/19 04:00 Mechanical Ventilator 09/13/19 04:00 24 09/13/19 04:00 98.4 77 12 166/77 (106) 100 09/13/19 03:29 74 09/13/19 03:11 166/77 09/13/19 03:00 73 12 24 09/13/19 00:37 74 12 24 09/13/19 00:00 98.6 73 12 109/58 (75) 100 09/13/19 00:00 24 09/13/19 00:00 Mechanical Ventilator 09/13/19 00:00 72 09/12/19 22:52 71 12 24 09/12/19 20:48 74 12 24 09/12/19 20:30 80 124/52 09/12/19 20:00 Mechanical Ventilator 09/12/19 20:00 72 09/12/19 20:00 97.5 80 12 124/60 (81) 100 09/12/19 20:00 24 09/12/19 18:53 74 12 24 09/12/19 17:24 72 12 24 09/12/19 16:06 75 09/12/19 16:02 24 09/12/19 16:01 Mechanical Ventilator 09/12/19 16:00 98.1 75 12 126/51 (76) 100 09/12/19 15:25 75 12 24 09/12/19 12:00 24 09/12/19 12:00 74 09/12/19 12:00 Mechanical Ventilator 09/12/19 12:00 98.2 69 12 139/71 (93) 99 09/12/19 11:30 72 15 24 09/12/19 09:30 67 12 24 I&O Intake and Output 09/12/19 09/13/19 19:00 07:00 Intake Total 910 ml 750 ml Output Total 2050 ml Balance -1140 ml 750 ml Free Water 250 ml 150 ml Tube Feeding 600 ml 600 ml Other 60 ml Stool Total 50 ml Hemodialysis UF 2000 ml # Voids 1 Dressing: saturated Wound: other Drains: other Cardiovascular: RSR Respiratory: decreased breath sounds Abdomen: soft, non-tender, present bowel sounds Extremities: no tenderness, no cyanosis Laboratory Tests Test 09/12/19 12:27 09/12/19 16:51 09/13/19 00:37 09/13/19 05:52 POC Whole Blood Glucose 131 MG/DL (74-106) H 142 MG/DL (74-106) H 155 MG/DL (74-106) H 145 MG/DL (74-106) H Plan Problems: (1) Anemia (2) Hyponatremia (3) Leukocytosis Assessment & Plan: Tracheostomy, left chest pacemaker are again demonstrated. There is bilateral interstitial and airspace disease and bilateral pleural fluid again demonstrated. This appears more severe than on the prior study. Bilateral interstitial and airspace infiltrates versus edema. Bilateral pleural effusions Leukocytosis, anemia, tachycardia, abnormal labs. Wound evaluated and likely etiology of patient's sepsis. Leukocytosis etiology work-up antibiotics per infectious disease Appreciate nephrology input transfuse with dialysis We will follow with recommendations thank you allowing participation's care plan HD access temp HD discussed with medical teams line okay HD as per renal persistent leukocytosis flow cyto noted improving trending down right fem line removed (4) Ventilator dependent (5) Right lower lobe pneumonia (6) Hypokalemia (7) Hyperkalemia (8) Anasarca (9) Decubitus skin ulcer Assessment & Plan: pt presented on admission with generalized edemae.Skin assessed under tracheostomy and no areas of concerns noted. GT Insertion is marginally erythematous with small amt slough at stoma. Unstageable Pressure Injury R elbow. Base of wound is 100% yellow slough, Borders are erythematous. Wound oozing small amt haemopurulent exudate.Darker skin tone without elevation in skin temp or erythema periwound. Pt's penis and scrotum are grossly edematous and enlarged and weeping serous exudate from numerous sites both from penis and scrotum. Two small open wounds noted at base of at base of shaft of penis ,and contreras aspect of scrotum. Both wounds oozing large amt sanguineous and serosanguineous exudate. Multiple open wounds with Biofilm at base of each wounds noted to contreras/lateral,inferior and posterior aspects of scrotum. These wounds noted to be oozing moderate amts of serosanguineous exudate. Hypertrophic scar with scattered areas of hyperpigmentation noted to Sacrum. DTPI noted to L Buttocks (L)7cm x (W)9cm. Base of wound is purple and indurated.Darker skin tone without erythema, induration or fluctuance R and L ischial tuberosities. Both heels are boggy with non-blanchable erythema. Tx.Plan: Cleanse wound R elbow with Saline. Apply TheraHoney, Apply Moisture Barrier Paste periwound. Cover with Optifoam drsg.Change Daily and prn. Wash GT site with soap and water.Pat dry. Apply Zinc Oxide Paste to GT site Daily. Leave Open to Air. Apply Zinc Oxide Paste to entire Scrotum, Place ABD pads to R and L lateral, and posterior aspects of scrotum TWICE daily. Apply Cavilon Skin Barrier to malleoli and both Heels. Cover each site with Optifoam drsgs. Change every 7 days and prn. Reposition at least every 2hours or as tolerated. Off-load heels with Pillows. APM/BECCA Mattress overlay. (10) Malnutrition Assessment & Plan: DAILY ESTIMATED NEEDS: Needs based on Renal, critical care, wound/ 61kg 22-30 kcals/kg 7500-6725 total kcals 1.25-2 g protein/kg 76-122 g total protein Fluid per MD, now on HD NUTRITION DIAGNOSIS: * Swallowing difficulty R/T respiratory failure, dysphagia as evidenced by trach/vent dep, PEG dep * Increased kcal/prot needs R/T wound healing as evidenced by admitted w/ multiple pressure injuries including full thickness wounds at junction of Shaft of penis, dorsal scrotum, R elbow, and DTPI @ L buttocks. CURRENT TF:Vital AF 1.2 @ 50ml/hr x 24 hrs + Garo BID ENTERAL NUTRITION RECOMMENDATIONS: Vital AF 1.2 @ 50ml/hr x 24 hrs to provide 1200ml, 1440kcal,9 0g prot, 973ml free water * Maintain elemental TF of Vital AF 1.2 w/ continued diarrhea -> monitor lytes and renal fxn closely, monitor need for renal T -> TF @ goal will provide 1642mg K and 2025mg Phos * HOB over 30 degrees/ water flush per MD * Continue Garo BID via PEG ADDITIONAL RECOMMENDATIONS: * Per SNF: HT=63" VJ=944 lbs (vs EMR wt of 166lbs) -> obtain re-calibrated bedscale wt, rec daily wt monitoring * Wound healing: con't Nephrovite + Garo BID/ Vit C dosing per Nephro * Monitor renal fxn and lytes closely w/ non-renal TF - previously w/ multiple episodes of low K and phos - Check f/up phos (1. 0on 09/04) * Add probiotics and anti-diarrheal meds - prolonged diarrhea, +rectal tube (11) Uremia (12) CKD (chronic kidney disease) stage 5, GFR less than 15 ml/min (13) Colon distention Assessment & Plan: discussed with GI likely functional as having lots of loose bm rectal tube kub f/u s/p colonoscopy - findings reviewed with GI Marked distention of the sigmoid colon. 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 No evidence of bowel wall thickening or pneumatosis 12 mm focus of contrast enhancement in the right pectineus muscle. While nonspecific in appearance, appearance raises concern for a possible pseudoaneurysm. Ill- defined thickening of the pectus medius muscle could indicate some intramuscular hemorrhage. The above findings were phoned to Dr. Urias at the time of interpretation Large bilateral pleural effusions Hazy pulmonary parenchymal opacities as well as dense consolidative opacities most likely represent pulmonary edema, but could represent pneumonia Evidence of anasarca elsewhere, with generalized edema of the subcutaneous fat Bladder wall thickening, raises concern for cystitis. Avalos catheter in place Colonic diverticulosis. No evidence of diverticulitis. Tracheostomy Pacemaker Gastrostomy Jonathan Urias Sep 13, 2019 09:28
--- NOTE | 2019-09-13 10:03 | NUR ---
NURSE NOTES: Called [facility] for dialysis. Baldemar stated that he will contact TAMICA Phan
--- NOTE | 2019-09-13 10:15 | NUR ---
NURSE NOTES: Daughter at bedside.
--- NOTE | 2019-09-13 10:17 | NUR ---
NURSE NOTES: Dr Lyle at bedside.
--- NOTE | 2019-09-13 10:33 | Infectious Diseases Prog Note ---
Assessment/Plan Assessment/Plan antibiotics : none A 1. klebsiella catheter infection s/p rx 2. respiratory failure 3. leucocytosis 4. klebsiella, pseudomonas, providencia pneumonia s/p rx COVID 19 test negative x 2 5. renal failure on HD P 1. observe off antibiotics 2. will follow up cultures Subjective ROS Limited/Unobtainable: Yes Allergies: Coded Allergies: No Known Allergies (Unverified , 06/10/19) Objective Last 24 Hour Vital Signs Date Time Temp Pulse Resp B/P (MAP) Pulse Ox O2 Delivery O2 Flow Rate FiO2 09/13/19 09:14 70 12 24 09/13/19 08:53 110/55 09/13/19 08:52 60 110/55 09/13/19 08:00 Mechanical Ventilator 09/13/19 08:00 73 09/13/19 08:00 98.4 60 12 110/55 (73) 100 09/13/19 08:00 24 09/13/19 07:01 72 12 09/13/19 04:34 73 12 09/13/19 04:00 Mechanical Ventilator 09/13/19 04:00 24 09/13/19 04:00 98.4 77 12 166/77 (106) 100 09/13/19 03:29 74 09/13/19 03:11 166/77 09/13/19 03:00 73 12 24 09/13/19 00:37 74 12 09/13/19 00:00 98.6 73 12 109/58 (75) 100 09/13/19 00:00 24 09/13/19 00:00 Mechanical Ventilator 09/13/19 00:00 72 09/12/19 22:52 71 12 09/12/19 20:48 74 12 09/12/19 20:30 80 124/52 09/12/19 20:00 Mechanical Ventilator 09/12/19 20:00 72 09/12/19 20:00 97.5 80 12 124/60 (81) 100 09/12/19 20:00 24 09/12/19 18:53 74 12 09/12/19 17:24 72 12 09/12/19 16:06 75 09/12/19 16:02 24 09/12/19 16:01 Mechanical Ventilator 09/12/19 16:00 98.1 75 12 126/51 (76) 100 09/12/19 15:25 75 12 24 09/12/19 12:00 24 09/12/19 12:00 74 09/12/19 12:00 Mechanical Ventilator 09/12/19 12:00 98.2 69 12 139/71 (93) 99 09/12/19 11:30 72 15 24 Height (Feet): 5 Height (Inches): 10.00 Weight (Pounds): 165 HEENT: status post trach Respiratory/Chest: lungs clear Cardiovascular: normal rate, regular rhythm, no gallop/murmur Abdomen: soft, non tender, other - GT Extremities: other - + edema, right subclavian catheter Laboratory Tests Test 09/12/19 12:27 09/12/19 16:51 09/13/19 00:37 09/13/19 05:52 POC Whole Blood Glucose 131 MG/DL (74-106) H 142 MG/DL (74-106) H 155 MG/DL (74-106) H 145 MG/DL (74-106) H Current Medications Medications (Trade) Dose Ordered Sig/Leonel Route PRN Reason Start Time Stop Time Status Last Admin Dose Admin Acetaminophen (Tylenol) 650 mg Q4H PRN GT Mild Pain (Pain Scale 1-3) 09/09/19 00:45 10/09/19 00:44 09/09/19 00:44 Atorvastatin Calcium (Lipitor) 40 mg BEDTIME GT 08/09/19 21:00 11/07/19 20:59 09/12/19 20:29 Chlorhexidine Gluconate (Felipa-Hex 2%) 1 applic DAILY@1999 TOPIC 09/12/19 20:00 12/11/19 19:59 09/12/19 20:29 Clonidine HCl (Catapres Tab) 0.1 mg Q4H PRN GT For High Blood Pressure 09/09/19 12:30 12/08/19 05:29 09/13/19 03:11 Dextrose (Dextrose 50%) 25 ml Q30M PRN IV Hypoglycemia 08/09/19 07:30 11/07/19 07:29 Dextrose (Dextrose 50%) 50 ml Q30M PRN IV Hypoglycemia 08/09/19 07:30 11/07/19 07:29 Epoetin Andreas (Epoetin Andreas(ESRD on dialysis)) 10,000 unit WED-WED-WED SUBQ 08/18/19 21:00 11/16/19 20:59 09/11/19 20:34 Famotidine (Pepcid) 20 mg DAILY GT 08/30/19 09:00 11/28/19 08:59 09/13/19 08:52 Heparin Sodium (Porcine) (Heparin Sod 1000 units/ml 10ml) 500 unit ONCE IV 09/14/19 09:30 09/14/19 23:59 Heparin Sodium (Porcine) (Heparin) 1,000 unit POSTHD INJ 09/14/19 09:30 10/29/19 09:29 Insulin Aspart (NovoLOG) Q6HR SUBQ 08/10/19 00:00 11/07/19 11:29 09/13/19 05:54 Metoprolol Tartrate (Lopressor) 200 mg Q12HR GT 08/09/19 09:00 11/07/19 08:59 09/13/19 08:52 Minoxidil (Loniten) 5 mg DAILY GT 08/09/19 09:00 11/07/19 08:59 09/11/19 08:24 Sodium Chloride 1,000 ml @ 500 mls/hr Q2H PRN IVLG sbp<90 during hd 09/14/19 09:26 10/14/19 09:25 Zinc Oxide (Zinc Oxide) 1 applic BID TOPIC 08/10/19 18:00 11/08/19 17:59 09/13/19 08:54 Farnaz Lyle MD Sep 13, 2019 10:33
--- NOTE | 2019-09-13 11:14 | NUR ---
NURSE NOTES: Blood draw sent to lab
[2019-09-13 11:23] LABS: BASOPHILS % (AUTO) 0.9 % (0.0-2.0); HEMATOCRIT 27.1 % (42.0-52.0); LYMPHOCYTES % (AUTO) 14.4 % (20.0-45.0); MEAN CORPUSCULAR VOLUME 87 FL (80-99); MONOCYTES % (AUTO) 7.2 % (1.0-10.0); NEUTROPHILS % (AUTO) 69.5 % (45.0-75.0); PLATELET COUNT 327 K/UL (150-450); RED BLOOD COUNT 3.11 M/UL (4.70-6.10); RED CELL DISTRIBUTION WIDTH 19.1 % (11.6-14.8); WHITE BLOOD COUNT 17.2 K/UL (4.8-10.8)
[2019-09-13 11:30] LABS: ANION GAP 4 mmol/L (5-15); BLOOD UREA NITROGEN 46 mg/dL (7-18); CALCIUM 8.5 MG/DL (8.5-10.1); CARBON DIOXIDE 34 MMOL/L (21-32); CHLORIDE 102 MMOL/L (98-107); CREATININE 2.9 MG/DL (0.55-1.30); POTASSIUM 4.2 MMOL/L (3.5-5.1); SODIUM 140 MMOL/L (136-145)
[2019-09-13 12:00] VITALS: BP 106/64
--- NOTE | 2019-09-13 14:04 | NUR ---
CASE MANAGEMENT: REVIEW SI: PNA . ESRD on HD . CHRONIC LEUKOCYTOSIS T 99.0 HR 70 RR 16 BP 110/55 SAT 99% MECH VENT FIO2 24 WBC 17.5 H/H 8.0/27.1 BUN 46 CR 2.9 IS: EPOETIN SUBQ QMWF HEPARIN IV PRN HD HD NEEDED STEP DOWN UNIT STATUS DCP: PATIENT HAS BEEN ACCEPTED TO [facility]
--- NOTE | 2019-09-13 14:07 | NUR ---
INSURANCE UPDATED CLINICALS/REVIEW FAXED TO [facility] / [employer] [facility] REF# [id number] RIC:HARPER P:[phone] F:[phone]
[2019-09-13 16:00] VITALS: BP 125/51
--- NOTE | 2019-09-13 16:12 | NUR ---
NURSE NOTES: Patient tolerated bed bath and oral care. Will continue to monitor patient.
--- NOTE | 2019-09-13 19:10 | NUR ---
NURSE NOTES: Received report from TAMICA Celeste. Patient asleep, afebrile and no respiratory distress. V paced on 5 lead registered nurse cardiac. On [facility] vent Portex 8, ac 12, TV 550, FiO2 24%, peep 5. With Left FA 22g IV line intact, patent and asymptomatic. With Right subclavian permacath intact, clean and asymptomatic. On Vital AF 50cc/hr via GT intact and infusing well. Hemodialysis 09/12/2019 and 2 liters out per endorsement. Needs were attended. HOB elevated. Bed rails are up and wheels are locked. Call light within reach. Continue plan of care.
--- NOTE | 2019-09-13 19:20 | NUR ---
HAND-OFF: Report given to TAMICA SIM. Patient is in bed ans stable.
[2019-09-13 20:00] VITALS: BP 133/60
[2019-09-13] MEDS: Atorvastatin 20mg tab GT SCH (20:43)
[2019-09-13] MEDS: Dyna-Hex 2% Top Sol 2oz TOPIC SCH (20:43)
--- NOTE | 2019-09-13 20:46 | General Progress Note ---
Assessment/Plan Assessment/Plan: IMPRESSION: 1. anemia. 2. GI bleed. 3. Leukocytosis. 4. Probable sepsis. + BCX 5. Acute on chronic renal failure. 6. Hyponatremia. 7. Severe protein-calorie malnutrition. 8. Significantly elevated C-reactive protein concerning for infectious etiology. 9. Tracheostomy, G-tube. 10. Ventilator dependence. 11. anasarca with bilateral pleural effusion 12. Hematuria 13. V pacing PLAN needs placement may need transfusion care noted on vent/ no wean surgical follow up monitor labs and adjust RX ID follow up monitor renal function: HD prognosis poor impression, plan, and exam edited and reviewed in detail care discussed with RN Subjective Allergies: Coded Allergies: No Known Allergies (Unverified , 06/10/19) Subjective remains ill on vent on HD Objective Last 24 Hour Vital Signs Date Time Temp Pulse Resp B/P (MAP) Pulse Ox O2 Delivery O2 Flow Rate FiO2 09/13/19 20:44 69 133/60 09/13/19 19:57 70 12 24 09/13/19 16:55 70 12 09/13/19 16:00 Mechanical Ventilator 09/13/19 16:00 98.2 71 13 125/51 (75) 99 09/13/19 16:00 24 09/13/19 15:15 69 09/13/19 15:01 75 12 09/13/19 12:51 76 12 09/13/19 12:10 70 09/13/19 12:00 Mechanical Ventilator 09/13/19 12:00 24 09/13/19 12:00 99.0 70 16 106/64 (78) 99 09/13/19 11:08 68 12 09/13/19 09:14 70 12 09/13/19 08:53 110/55 09/13/19 08:52 60 110/55 09/13/19 08:00 Mechanical Ventilator 09/13/19 08:00 73 09/13/19 08:00 98.4 60 12 110/55 (73) 100 09/13/19 08:00 24 09/13/19 07:01 72 12 09/13/19 04:34 73 12 24 09/13/19 04:00 Mechanical Ventilator 09/13/19 04:00 24 09/13/19 04:00 98.4 77 12 166/77 (106) 100 09/13/19 03:29 74 09/13/19 03:11 166/77 09/13/19 03:00 73 12 24 09/13/19 00:37 74 12 24 09/13/19 00:00 98.6 73 12 109/58 (75) 100 09/13/19 00:00 24 09/13/19 00:00 Mechanical Ventilator 09/13/19 00:00 72 09/12/19 22:52 71 12 24 09/12/19 20:48 74 12 24 Intake and Output 09/12/19 09/13/19 19:00 07:00 Intake Total 910 ml 750 ml Output Total 2050 ml Balance -1140 ml 750 ml Free Water 250 ml 150 ml Tube Feeding 600 ml 600 ml Other 60 ml Stool Total 50 ml Hemodialysis UF 2000 ml # Voids 1 Laboratory Tests 09/13/19 00:37: POC Whole Blood Glucose 155H 09/13/19 05:52: POC Whole Blood Glucose 145H 09/13/19 11:15: White Blood Count 17.2H, Red Blood Count 3.11L, Hemoglobin 8.0L, Hematocrit 27.1L, Mean Corpuscular Volume 87, Mean Corpuscular Hemoglobin 25.6L, Mean Corpuscular Hemoglobin Concent 29.5L, Red Cell Distribution Width 19.1H, Platelet Count 327, Mean Platelet Volume 5.6L, Neutrophils (%) (Auto) 69.5, Lymphocytes (%) (Auto) 14.4L, Monocytes (%) (Auto) 7.2, Eosinophils (%) (Auto) 8.0H, Basophils (%) (Auto) 0.9, Sodium Level 140, Potassium Level 4.2, Chloride Level 102, Carbon Dioxide Level 34H, Anion Gap 4L, Blood Urea Nitrogen 46H, Creatinine 2.9H, Estimat Glomerular Filtration Rate 21.2, Glucose Level 143H, Calcium Level 8.5 09/13/19 11:31: POC Whole Blood Glucose 141H 09/13/19 17:47: POC Whole Blood Glucose 148H Height (Feet): 5 Height (Inches): 10.00 Weight (Pounds): 165 Objective GENERAL: Ill-appearing male, chronically debilitated. HEENT: Tracheostomy in midline. Questionable fullness in the submandibular region. LUNGS: Coarse breath sounds. reduced breath sounds CARDIAC: S1, S2. Regular rate and rhythm. ABDOMEN: Soft. G-tube. EXTREMITIES: With noted edema. NEUROLOGICAL: Poorly responsive, weak diffusely. Kain Ramirez MD Sep 13, 2019 20:46
--- NOTE | 2019-09-13 20:46 | General Progress Note ---
Assessment/Plan Assessment/Plan: IMPRESSION: 1. anemia. 2. GI bleed. 3. Leukocytosis. 4. Probable sepsis. + BCX 5. Acute on chronic renal failure. 6. Hyponatremia. 7. Severe protein-calorie malnutrition. 8. Significantly elevated C-reactive protein concerning for infectious etiology. 9. Tracheostomy, G-tube. 10. Ventilator dependence. 11. anasarca with bilateral pleural effusion 12. Hematuria 13. V pacing PLAN needs placement may need transfusion care noted on vent/ no wean surgical follow up monitor labs and adjust RX ID follow up monitor renal function: HD prognosis poor impression, plan, and exam edited and reviewed in detail care discussed with RN Subjective Date patient seen: Sep 12, 2019 ROS Limited/Unobtainable: Yes Allergies: Coded Allergies: No Known Allergies (Unverified , 06/10/19) Subjective remains ill on vent on HD Objective Last 24 Hour Vital Signs Date Time Temp Pulse Resp B/P (MAP) Pulse Ox O2 Delivery O2 Flow Rate FiO2 09/12/19 22:52 71 12 24 09/12/19 20:48 74 12 24 Intake and Output Height (Feet): 5 Height (Inches): 10.00 Weight (Pounds): 165 Objective GENERAL: Ill-appearing male, chronically debilitated. HEENT: Tracheostomy in midline. Questionable fullness in the submandibular region. LUNGS: Coarse breath sounds. reduced breath sounds CARDIAC: S1, S2. Regular rate and rhythm. ABDOMEN: Soft. G-tube. EXTREMITIES: With noted edema. NEUROLOGICAL: Poorly responsive, weak diffusely. Kain Ramirez MD Sep 13, 2019 20:46
--- NOTE | 2019-09-13 21:00 | General Progress Note ---
Assessment/Plan Assessment/Plan: Assessment - colonoscopy negative to hepatic flexure - diarrhea - presumed TF related - abnormal LFT - Anemia - leukocytosis - resolved thrombocytosis - stool OB (+) - EGD --> gastritis - Renal failure - Anasarca - resp failure, trach - dysphagia, GT - encephalopathy, contracted - poor px Recommendations - Continue TF - Elevate HOB - f/u Biopsies of colon --> negative - PPI - abx - supportive care Subjective Allergies: Coded Allergies: No Known Allergies (Unverified , 06/10/19) Subjective Above noted no events tolerating TF Objective Last 24 Hour Vital Signs Date Time Temp Pulse Resp B/P (MAP) Pulse Ox O2 Delivery O2 Flow Rate FiO2 09/13/19 20:44 69 133/60 09/13/19 20:00 98.1 69 13 133/60 (84) 99 09/13/19 20:00 Mechanical Ventilator 09/13/19 20:00 24 09/13/19 19:57 70 12 24 09/13/19 16:55 70 12 09/13/19 16:00 Mechanical Ventilator 09/13/19 16:00 98.2 71 13 125/51 (75) 99 09/13/19 16:00 24 09/13/19 15:15 69 09/13/19 15:01 75 12 09/13/19 12:51 76 12 09/13/19 12:10 70 09/13/19 12:00 Mechanical Ventilator 09/13/19 12:00 24 09/13/19 12:00 99.0 70 16 106/64 (78) 99 09/13/19 11:08 68 12 09/13/19 09:14 70 12 09/13/19 08:53 110/55 09/13/19 08:52 60 110/55 09/13/19 08:00 Mechanical Ventilator 09/13/19 08:00 73 09/13/19 08:00 98.4 60 12 110/55 (73) 100 09/13/19 08:00 24 09/13/19 07:01 72 12 24 09/13/19 04:34 73 12 24 09/13/19 04:00 Mechanical Ventilator 09/13/19 04:00 24 09/13/19 04:00 98.4 77 12 166/77 (106) 100 8/5/20 03:29 74 09/13/19 03:11 166/77 09/13/19 03:00 73 12 24 09/13/19 00:37 74 12 24 09/13/19 00:00 98.6 73 12 109/58 (75) 100 09/13/19 00:00 24 09/13/19 00:00 Mechanical Ventilator 09/13/19 00:00 72 09/12/19 22:52 71 12 24 Intake and Output 09/12/19 09/13/19 19:00 07:00 Intake Total 910 ml 750 ml Output Total 2050 ml Balance -1140 ml 750 ml Free Water 250 ml 150 ml Tube Feeding 600 ml 600 ml Other 60 ml Stool Total 50 ml Hemodialysis UF 2000 ml # Voids 1 Laboratory Tests 09/13/19 00:37: POC Whole Blood Glucose 155H 09/13/19 05:52: POC Whole Blood Glucose 145H 09/13/19 11:15: White Blood Count 17.2H, Red Blood Count 3.11L, Hemoglobin 8.0L, Hematocrit 27.1L, Mean Corpuscular Volume 87, Mean Corpuscular Hemoglobin 25.6L, Mean Corpuscular Hemoglobin Concent 29.5L, Red Cell Distribution Width 19.1H, Platelet Count 327, Mean Platelet Volume 5.6L, Neutrophils (%) (Auto) 69.5, Lymphocytes (%) (Auto) 14.4L, Monocytes (%) (Auto) 7.2, Eosinophils (%) (Auto) 8.0H, Basophils (%) (Auto) 0.9, Sodium Level 140, Potassium Level 4.2, Chloride Level 102, Carbon Dioxide Level 34H, Anion Gap 4L, Blood Urea Nitrogen 46H, Creatinine 2.9H, Estimat Glomerular Filtration Rate 21.2, Glucose Level 143H, Calcium Level 8.5 09/13/19 11:31: POC Whole Blood Glucose 141H 09/13/19 17:47: POC Whole Blood Glucose 148H Height (Feet): 5 Height (Inches): 10.00 Weight (Pounds): 165 Objective Debilitated AA man NCAT (+) trach coarse BS RR abd distended, anasarca, (+) GT ext (+) edema contracted Ronny Mustafa MD Sep 13, 2019 21:00
[2019-09-13] MEDS: Epoetin Alfa-EPBX(ESRD on dialysis)10,000 unit/ml vial SUBQ SCH (21:39)
--- NOTE | 2019-09-13 22:34 | NUR ---
NURSE NOTES: received pt from RONEY RN., pt is awake and resting on the bed. O2sat is at 100%. vent is place, no SOB at this time. rectal tube in place, draining well with gravity. Gtube in place, gtube site intact, clean, and patent. left FA 22G and right subclavian Perma cath intact, clean, patent. call light within reach. will continue to monitor pt with plan of care.
--- NOTE | 2019-09-13 22:35 | NUR ---
HAND-OFF: Report given to Ana Pappas RN. Pt stable and asleep.
[2019-09-14] VITALS: BP 145/78
[2019-09-14 04:00] VITALS: BP 155/60
--- NOTE | 2019-09-14 04:00 | NUR ---
NURSE NOTES: cleaned pt, provided new gown today, provided new oral care. call light within reach. will continue to monitor pt. VSS
[2019-09-14 04:56] LABS: HEMATOCRIT 28.7 % (42.0-52.0); HEMOGLOBIN 8.6 G/DL (14.2-18.0); MEAN CORPUSCULAR VOLUME 86 FL (80-99); PLATELET COUNT 351 K/UL (150-450); RED BLOOD COUNT 3.32 M/UL (4.70-6.10); RED CELL DISTRIBUTION WIDTH 18.5 % (11.6-14.8); WHITE BLOOD COUNT 18.3 K/UL (4.8-10.8)
[2019-09-14] MEDS: NovoLOG Insulin Flexpen SUBQ SCH ×3 (05:52→18:28)
--- NOTE | 2019-09-14 06:30 | NUR ---
NURSE NOTES: notified Engineering regarding broken bed scale. will wait for update.
[2019-09-14 07:09] LABS: ALANINE AMINOTRANSFERASE 28 U/L (12-78); ALBUMIN 1.8 G/DL (3.4-5.0); ALBUMIN/GLOBULIN RATIO 0.3 (1.0-2.7); ALKALINE PHOSPHATASE 270 U/L (46-116); ANION GAP 6 mmol/L (5-15); ASPARTATE AMINO TRANSFERASE 46 U/L (15-37); BILIRUBIN,TOTAL 0.3 MG/DL (0.2-1.0); BLOOD UREA NITROGEN 61 mg/dL (7-18); CARBON DIOXIDE 33 MMOL/L (21-32); CHLORIDE 100 MMOL/L (98-107); CREATININE 3.5 MG/DL (0.55-1.30); POTASSIUM 4.6 MMOL/L (3.5-5.1); SODIUM 139 MMOL/L (136-145)
--- NOTE | 2019-09-14 07:30 | NUR ---
HAND-OFF: Report given to Min RN., pt is stable condition, endorsed plan of care.
--- NOTE | 2019-09-14 07:30 | NUR ---
NURSE NOTES: Received patient form TAMICA Muhammad. Patient is in bed obtunded, non-verbal. No acute distress noted. Trach to vent Portex 8 AC 12, TV 550, Fio2 24%, PEEP of 5. Rectal tube in place and draining with yellow colored liquid bowel monement. Patient is contracted an all extremities, right subclavian permacath and IV site on left FA 22g SL patent asymptomatic. G-tube site intact and clean. Bed at it's lowest position. Call light within reach. Bed railsx3 up for safety. On BECCA mattress. Will continue plan of care.
[2019-09-14 08:00] VITALS: BP 155/69
--- NOTE | 2019-09-14 08:51 | General Progress Note ---
Assessment/Plan Assessment/Plan: IMPRESSION: 1. anemia. 2. GI bleed. 3. Leukocytosis. 4. Probable sepsis. + BCX 5. Acute on chronic renal failure. 6. Hyponatremia. 7. Severe protein-calorie malnutrition. 8. Significantly elevated C-reactive protein concerning for infectious etiology. 9. Tracheostomy, G-tube. 10. Ventilator dependence. 11. anasarca with bilateral pleural effusion 12. Hematuria 13. V pacing PLAN needs placement care noted on vent/ no wean surgical follow up monitor labs and adjust RX ID follow up monitor renal function: HD prognosis poor impression, plan, and exam edited and reviewed in detail care discussed with RN Subjective Allergies: Coded Allergies: No Known Allergies (Unverified , 06/10/19) Subjective remains ill on vent on HD Objective Last 24 Hour Vital Signs Date Time Temp Pulse Resp B/P (MAP) Pulse Ox O2 Delivery O2 Flow Rate FiO2 09/14/19 07:06 73 13 24 09/14/19 05:35 71 22 24 09/14/19 04:00 98.0 73 14 155/60 (91) 100 09/14/19 04:00 Mechanical Ventilator 09/14/19 04:00 24 09/14/19 03:47 66 12 24 09/14/19 03:36 65 09/14/19 01:49 67 12 24 09/14/19 00:00 97.8 70 12 145/78 (100) 100 09/14/19 00:00 Mechanical Ventilator 09/13/19 23:31 65 12 24 09/13/19 23:29 68 09/13/19 21:40 67 15 24 09/13/19 20:44 69 133/60 09/13/19 20:00 98.1 69 13 133/60 (84) 99 09/13/19 20:00 Mechanical Ventilator 09/13/19 20:00 24 09/13/19 19:57 70 12 24 09/13/19 19:07 69 09/13/19 16:55 70 12 24 09/13/19 16:00 Mechanical Ventilator 09/13/19 16:00 98.2 71 13 125/51 (75) 99 09/13/19 16:00 24 09/13/19 15:15 69 09/13/19 15:01 75 12 24 09/13/19 12:51 76 12 24 09/13/19 12:10 70 09/13/19 12:00 Mechanical Ventilator 09/13/19 12:00 24 09/13/19 12:00 99.0 70 16 106/64 (78) 99 09/13/19 11:08 68 12 24 09/13/19 09:14 70 12 24 09/13/19 08:53 110/55 09/13/19 08:52 60 110/55 Intake and Output 09/13/19 09/14/19 19:00 07:00 Intake Total 600 ml 560 ml Balance 600 ml 560 ml Free Water 100 ml 60 ml Tube Feeding 500 ml 500 ml Laboratory Tests 09/13/19 11:15: White Blood Count 17.2H, Red Blood Count 3.11L, Hemoglobin 8.0L, Hematocrit 27.1L, Mean Corpuscular Volume 87, Mean Corpuscular Hemoglobin 25.6L, Mean Corpuscular Hemoglobin Concent 29.5L, Red Cell Distribution Width 19.1H, Platelet Count 327, Mean Platelet Volume 5.6L, Neutrophils (%) (Auto) 69.5, Lymphocytes (%) (Auto) 14.4L, Monocytes (%) (Auto) 7.2, Eosinophils (%) (Auto) 8.0H, Basophils (%) (Auto) 0.9, Sodium Level 140, Potassium Level 4.2, Chloride Level 102, Carbon Dioxide Level 34H, Anion Gap 4L, Blood Urea Nitrogen 46H, Creatinine 2.9H, Estimat Glomerular Filtration Rate 21.2, Glucose Level 143H, Calcium Level 8.5 09/13/19 11:31: POC Whole Blood Glucose 141H 09/13/19 17:47: POC Whole Blood Glucose 148H 09/13/19 23:07: POC Whole Blood Glucose [Pending] 09/14/19 03:20: White Blood Count 18.3H, Red Blood Count 3.32L, Hemoglobin 8.6L, Hematocrit 28.7L, Mean Corpuscular Volume 86, Mean Corpuscular Hemoglobin 26.0L, Mean Corpuscular Hemoglobin Concent 30.1L, Red Cell Distribution Width 18.5H, Platelet Count 351, Mean Platelet Volume 6.5, Neutrophils (%) (Auto) , Lymphocytes (%) (Auto) , Monocytes (%) (Auto) , Eosinophils (%) (Auto) , Basophils (%) (Auto) , Differential Total Cells Counted 100, Neutrophils % ( Manual) 65, Lymphocytes % (Manual) 18L, Monocytes % (Manual) 8, Eosinophils % ( Manual) 7H, Basophils % (Manual) 2, Band Neutrophils 0, Platelet Estimate Adequate, Platelet Morphology Normal, Hypochromasia 2+, Anisocytosis 2+, Sodium Level 139, Potassium Level 4.6, Chloride Level 100, Carbon Dioxide Level 33H, Anion Gap 6, Blood Urea Nitrogen 61H, Creatinine 3.5H, Estimat Glomerular Filtration Rate 17.0, Glucose Level 124H, Calcium Level 9.0, Total Bilirubin 0.3 , Aspartate Amino Transf (AST/SGOT) 46H, Alanine Aminotransferase (ALT/SGPT) 28 , Alkaline Phosphatase 270H, Total Protein 8.1, Albumin 1.8L, Globulin 6.3, Albumin/Globulin Ratio 0.3L 09/14/19 05:33: POC Whole Blood Glucose [Pending] Height (Feet): 5 Height (Inches): 10.00 Weight (Pounds): 164 Objective GENERAL: Ill-appearing male, chronically debilitated. HEENT: Tracheostomy in midline. Questionable fullness in the submandibular region. LUNGS: Coarse breath sounds. reduced breath sounds CARDIAC: S1, S2. Regular rate and rhythm. ABDOMEN: Soft. G-tube. EXTREMITIES: With noted edema. NEUROLOGICAL: Poorly responsive, weak diffusely. Kain Ramirez MD Sep 14, 2019 08:51
[2019-09-14] MEDS: Minoxidil 2.5mg tab GT SCH (08:55)
[2019-09-14] MEDS: Metoprolol Tartrate 100mg tab GT SCH ×2 (08:55→20:47)
[2019-09-14 09:03] LABS: EOSINOPHILS % (AUTO) 10.8 % (0.0-3.0); HEMATOCRIT 29.3 % (42.0-52.0); HEMOGLOBIN 8.7 G/DL (14.2-18.0); LYMPHOCYTES % (AUTO) 13.9 % (20.0-45.0); MEAN CORPUSCULAR VOLUME 86 FL (80-99); MONOCYTES % (AUTO) 8.5 % (1.0-10.0); NEUTROPHILS % (AUTO) 65.8 % (45.0-75.0); PLATELET COUNT 364 K/UL (150-450); RED CELL DISTRIBUTION WIDTH 18.5 % (11.6-14.8); WHITE BLOOD COUNT 17.6 K/UL (4.8-10.8)
[2019-09-14] MEDS: Zinc Oxide Oint 2oz TOPIC SCH ×2 (09:03→18:28)
[2019-09-14] MEDS ORDERED: Heparin 1000 units/ml 1ml Vial INJ SCH (09:30)
[2019-09-14] MEDS: Heparin Sod 1000 units/ml 10ml IV SCH ×2 (09:30→23:13)
--- NOTE | 2019-09-14 09:40 | Nephrology Progress Note ---
Assessment/Plan Plan Smoldering Sepsis - IV Abx Established ESRD - HD now TTS. DW HD RN. Subjective Subjective Obtunded. Objective Objective Last 24 Hour Vital Signs Date Time Temp Pulse Resp B/P (MAP) Pulse Ox O2 Delivery O2 Flow Rate FiO2 09/14/19 08:55 73 155/60 09/14/19 08:55 155/60 09/14/19 08:00 97.4 78 14 155/69 (97) 100 09/14/19 07:06 73 13 24 09/14/19 05:35 71 22 24 09/14/19 04:00 98.0 73 14 155/60 (91) 100 09/14/19 04:00 Mechanical Ventilator 09/14/19 04:00 24 09/14/19 03:47 66 12 24 09/14/19 03:36 65 09/14/19 01:49 67 12 24 09/14/19 00:00 97.8 70 12 145/78 (100) 100 09/14/19 00:00 Mechanical Ventilator 09/13/19 23:31 65 12 24 09/13/19 23:29 68 09/13/19 21:40 67 15 24 09/13/19 20:44 69 133/60 09/13/19 20:00 98.1 69 13 133/60 (84) 99 09/13/19 20:00 Mechanical Ventilator 09/13/19 20:00 24 09/13/19 19:57 70 12 24 09/13/19 19:07 69 09/13/19 16:55 70 12 24 09/13/19 16:00 Mechanical Ventilator 09/13/19 16:00 98.2 71 13 125/51 (75) 99 09/13/19 16:00 24 09/13/19 15:15 69 09/13/19 15:01 75 12 24 09/13/19 12:51 76 12 24 09/13/19 12:10 70 09/13/19 12:00 Mechanical Ventilator 09/13/19 12:00 24 09/13/19 12:00 99.0 70 16 106/64 (78) 99 09/13/19 11:08 68 12 24 Intake and Output 09/13/19 09/14/19 19:00 07:00 Intake Total 600 ml 560 ml Balance 600 ml 560 ml Free Water 100 ml 60 ml Tube Feeding 500 ml 500 ml Laboratory Tests 09/13/19 11:15: White Blood Count 17.2H, Red Blood Count 3.11L, Hemoglobin 8.0L, Hematocrit 27.1L, Mean Corpuscular Volume 87, Mean Corpuscular Hemoglobin 25.6L, Mean Corpuscular Hemoglobin Concent 29.5L, Red Cell Distribution Width 19.1H, Platelet Count 327, Mean Platelet Volume 5.6L, Neutrophils (%) (Auto) 69.5, Lymphocytes (%) (Auto) 14.4L, Monocytes (%) (Auto) 7.2, Eosinophils (%) (Auto) 8.0H, Basophils (%) (Auto) 0.9, Sodium Level 140, Potassium Level 4.2, Chloride Level 102, Carbon Dioxide Level 34H, Anion Gap 4L, Blood Urea Nitrogen 46H, Creatinine 2.9H, Estimat Glomerular Filtration Rate 21.2, Glucose Level 143H, Calcium Level 8.5 09/13/19 11:31: POC Whole Blood Glucose 141H 09/13/19 17:47: POC Whole Blood Glucose 148H 09/13/19 23:07: POC Whole Blood Glucose [Pending] 09/14/19 03:20: White Blood Count 18.3H, Red Blood Count 3.32L, Hemoglobin 8.6L, Hematocrit 28.7L, Mean Corpuscular Volume 86, Mean Corpuscular Hemoglobin 26.0L, Mean Corpuscular Hemoglobin Concent 30.1L, Red Cell Distribution Width 18.5H, Platelet Count 351, Mean Platelet Volume 6.5, Neutrophils (%) (Auto) , Lymphocytes (%) (Auto) , Monocytes (%) (Auto) , Eosinophils (%) (Auto) , Basophils (%) (Auto) , Differential Total Cells Counted 100, Neutrophils % ( Manual) 65, Lymphocytes % (Manual) 18L, Monocytes % (Manual) 8, Eosinophils % ( Manual) 7H, Basophils % (Manual) 2, Band Neutrophils 0, Platelet Estimate Adequate, Platelet Morphology Normal, Hypochromasia 2+, Anisocytosis 2+, Sodium Level 139, Potassium Level 4.6, Chloride Level 100, Carbon Dioxide Level 33H, Anion Gap 6, Blood Urea Nitrogen 61H, Creatinine 3.5H, Estimat Glomerular Filtration Rate 17.0, Glucose Level 124H, Calcium Level 9.0, Total Bilirubin 0.3 , Aspartate Amino Transf (AST/SGOT) 46H, Alanine Aminotransferase (ALT/SGPT) 28 , Alkaline Phosphatase 270H, Total Protein 8.1, Albumin 1.8L, Globulin 6.3, Albumin/Globulin Ratio 0.3L 09/14/19 05:33: POC Whole Blood Glucose [Pending] 09/14/19 08:40: White Blood Count 17.6H, Red Blood Count 3.40L, Hemoglobin 8.7L, Hematocrit 29.3L, Mean Corpuscular Volume 86, Mean Corpuscular Hemoglobin 25.6L, Mean Corpuscular Hemoglobin Concent 29.6L, Red Cell Distribution Width 18.5H, Platelet Count 364, Mean Platelet Volume 6.5, Neutrophils (%) (Auto) 65.8, Lymphocytes (%) (Auto) 13.9L, Monocytes (%) (Auto) 8.5, Eosinophils (%) (Auto) 10.8H, Basophils (%) (Auto) 1.0 Height (Feet): 5 Height (Inches): 10.00 Weight (Pounds): 164 Objective CV RR Trach clean Lungs CTA New Perma Cath RIJ. Old Femoral Rancho still in Rt. Groin! Abd SNT. BS + E No CCE Erica Pichardo MD Sep 14, 2019 09:40
[2019-09-14 12:00] VITALS: BP 128/55
--- NOTE | 2019-09-14 12:33 | Hematology/Onc Progress Note ---
Assessment/Plan Assessment/Plan Assessment/recs # Leukocytosis - with multiple infections, VRE UTI, flow is negative --> wbc trend 33-->28-->25->23->22->23->24->17.3-->17-->14->16-->15.6-->14-->14- >13->19->18->17->22->22->19->17 --> on abx, linezolid and zosyn--> zosyn-->gent-->off --> + blood cultures with coag neg staph likely contaminated --> as per id recs --> has ordered a flow cytometry (with pathology) --> does show increased nK cell activity --> JOURDAN 2 and bcr-abl labs ordered (these are send outs) --> plt 585-->613-->649-->669->663 # Anemia due to chronic disease/kidney disease as well, gi bleed + occult + noted --> was on iron in the past, now on hold --> has been started on Epogen sq --> as per renal care --> egd done and shows gastritis --> on ppi --> egd showed gastritis, colo recently done --> hgb 9-->8.7-->7.6-->9.2-->8.9-->9.2->9.3-->8.8->9.9-->9.2-->8.1-->8.7-->7.9- ->8.6 # Respiratory failure --> per pulm, s/p trach --> COVID 19 test negative x 2 # Dysphagia s/p gtube with nepro --> per gi # ESRD with r fem julito --> hd as per renal # Dvt ppx scds Appreciate consultation and dw Rn Subjective Constitutional: Denies: no symptoms, chills, fever, malaise, weakness, other HEENT: Denies: no symptoms, eye pain, blurred vision, tearing, double vision, ear pain, ear discharge, nose pain, nose congestion, throat pain, throat swelling, mouth pain, mouth swelling, other Cardiovascular: Denies: no symptoms, chest pain, edema, irregular heart rate, lightheadedness, palpitations, syncope, other Respiratory: Denies: no symptoms, cough, shortness of breath, SOB with excertion, SOB at rest, sputum, wheezing, other Gastrointestinal/Abdominal: Denies: no symptoms, abdomen distended, abdominal pain, black stools, tarry stools, blood in stool, constipated, diarrhea, difficulty swallowing, nausea, poor appetite, poor fluid intake, rectal bleeding , vomiting, other Genitourinary: Denies: no symptoms, burning, discharge, frequency, flank pain, hematuria, incontinence, pain, urgency, other Neurologic/Psychiatric: Denies: no symptoms, anxiety, depressed, emotional problems, headache, numbness, paresthesia, pre-existing deficit, seizure, tingling, tremors, weakness, other Endocrine: Denies: no symptoms, excessive sweating, flushing, intolerance to cold, intolerance to heat, increased hunger, increased thirst, increased urine, unexplained weight gain, unexplained weight loss, other Allergies: Coded Allergies: No Known Allergies (Unverified , 06/10/19) Subjective 08/15 meds noted, no bleeding, hgb 8.8, wbc 28, path flow pending 08/16 flow pending dw pathologist, results pending, wbc 25, hgb 9 08/17 labs reviewed, meds reviewed, meds noted, no night sweats 08/19 remains obtunded, on vent/trach, no bleeding wbc 21.7 08/20 labs have been reviewed, no bleeding, wbc still elev, path reviewed 08/21 labs are noted, no bleeding, on vent, wbc better 08/22 labs noted, no bleeding, meds reviewed, wbc 24 hgb 7.6 08/23 vent, off abx, c diff negative, h/h stable 08/24 labs reviewed, on abx, wbc 17, hgb 8.9, no hemolysis 08/26 reviewed flow and is negative for leukemia, matt rn 08/27 meds reviewed, no night sweats, matt rn, no major bleeding 08/28 meds reivewed, labs noted 08/29 wbc is stable, approx 15, hgb 8.8, no hemolysis 08/30 labs are noted, is for colo today, hgb 9.9 08/31 right fem julito in place, unchanged, hgb 9.2, gi aware 09/01 labs noted, hgb 8.8, plt >600, no bleeding 09/02 labs noted, no bleeding, with elev wbc still, no new changes 09/03 meds are noted, no bleeding, labs reviewed hgb 8.6 09/04 no major events, hd as per renal, abx, no bleeding hgb low 09/05 labs are noted, no bleeding, meds have been reviewed 09/06 no new labs no hemolysis, cbc is noted, no bleeding 09/07 meds reviewed, no bleeding, matt rn, permacat functioning well 09/09 meds reviewed, wbc still elevated, as per id recs, cbc noted 09/10 is obtunded, with gutbe in place, labs reviewed 09/11 obtunded, as per id, observe now off abx, labs noted, wbc 19 09/12 cbc is pending, remains on epogen, also off abx 09/13 labs reviewed, no bleeding, elev wbc, no night sweats Objective Objective Current Medications Medications (Trade) Dose Ordered Sig/Leonel Route PRN Reason Start Time Stop Time Status Last Admin Dose Admin Acetaminophen (Tylenol) 650 mg Q4H PRN GT Mild Pain (Pain Scale 1-3) 09/09/19 00:45 10/09/19 00:44 09/09/19 00:44 Atorvastatin Calcium (Lipitor) 40 mg BEDTIME GT 08/09/19 21:00 11/07/19 20:59 09/13/19 20:43 Chlorhexidine Gluconate (Felipa-Hex 2%) 1 applic DAILY@1999 TOPIC 09/12/19 20:00 12/11/19 19:59 09/13/19 20:43 Clonidine HCl (Catapres Tab) 0.1 mg Q4H PRN GT For High Blood Pressure 09/09/19 12:30 12/08/19 05:29 09/13/19 03:11 Dextrose (Dextrose 50%) 25 ml Q30M PRN IV Hypoglycemia 08/09/19 07:30 11/07/19 07:29 Dextrose (Dextrose 50%) 50 ml Q30M PRN IV Hypoglycemia 08/09/19 07:30 11/07/19 07:29 Epoetin Andreas (Epoetin Andreas(ESRD on dialysis)) 10,000 unit WED-WED-WED SUBQ 08/18/19 21:00 11/16/19 20:59 09/13/19 21:39 Famotidine (Pepcid) 20 mg DAILY GT 08/30/19 09:00 11/28/19 08:59 09/14/19 09:03 Heparin Sodium (Porcine) (Heparin Sod 1000 units/ml 10ml) 500 unit ONCE IV 09/14/19 09:30 09/14/19 23:59 Heparin Sodium (Porcine) (Heparin) 1,000 unit POSTHD INJ 09/14/19 09:30 10/29/19 09:29 Insulin Aspart (NovoLOG) Q6HR SUBQ 08/10/19 00:00 11/07/19 11:29 09/14/19 05:52 Metoprolol Tartrate (Lopressor) 200 mg Q12HR GT 08/09/19 09:00 11/07/19 08:59 09/13/19 20:44 Minoxidil (Loniten) 5 mg DAILY GT 08/09/19 09:00 11/07/19 08:59 09/11/19 08:24 Sodium Chloride 1,000 ml @ 500 mls/hr Q2H PRN IVLG sbp<90 during hd 09/14/19 09:26 10/14/19 09:25 Zinc Oxide (Zinc Oxide) 1 applic BID TOPIC 08/10/19 18:00 11/08/19 17:59 09/14/19 09:03 Last 24 Hour Vital Signs Date Time Temp Pulse Resp B/P (MAP) Pulse Ox O2 Delivery O2 Flow Rate FiO2 09/14/19 12:00 24 09/14/19 12:00 98.2 78 14 128/55 (79) 96 09/14/19 10:57 65 12 24 09/14/19 09:22 76 13 24 09/14/19 08:55 73 155/60 09/14/19 08:55 155/60 09/14/19 08:00 70 09/14/19 08:00 Mechanical Ventilator 09/14/19 08:00 97.4 78 14 155/69 (97) 100 09/14/19 08:00 24 09/14/19 07:06 73 13 24 09/14/19 05:35 71 22 24 09/14/19 04:00 98.0 73 14 155/60 (91) 100 09/14/19 04:00 Mechanical Ventilator 09/14/19 04:00 24 09/14/19 03:47 66 12 24 09/14/19 03:36 65 09/14/19 01:49 67 12 24 09/14/19 00:00 97.8 70 12 145/78 (100) 100 09/14/19 00:00 Mechanical Ventilator 09/13/19 23:31 65 12 24 09/13/19 23:29 68 09/13/19 21:40 67 15 24 09/13/19 20:44 69 133/60 09/13/19 20:00 98.1 69 13 133/60 (84) 99 09/13/19 20:00 Mechanical Ventilator 09/13/19 20:00 24 09/13/19 19:57 70 12 24 09/13/19 19:07 69 09/13/19 16:55 70 12 24 09/13/19 16:00 Mechanical Ventilator 09/13/19 16:00 98.2 71 13 125/51 (75) 99 09/13/19 16:00 24 09/13/19 15:15 69 09/13/19 15:01 75 12 24 09/13/19 12:51 76 12 24 09/13/19 12:10 70 09/13/19 12:00 Mechanical Ventilator 09/13/19 12:00 24 09/13/19 12:00 99.0 70 16 106/64 (78) 99 09/13/19 11:08 68 12 24 09/13/19 09:14 70 12 24 09/13/19 08:53 110/55 09/13/19 08:52 60 110/55 09/13/19 08:00 Mechanical Ventilator 09/13/19 08:00 73 09/13/19 08:00 98.4 60 12 110/55 (73) 100 09/13/19 08:00 24 09/13/19 07:01 72 12 24 09/13/19 04:34 73 12 24 09/13/19 04:00 Mechanical Ventilator 09/13/19 04:00 24 09/13/19 04:00 98.4 77 12 166/77 (106) 100 09/13/19 03:29 74 09/13/19 03:11 166/77 09/13/19 03:00 73 12 24 09/13/19 00:37 74 12 24 09/13/19 00:00 98.6 73 12 109/58 (75) 100 09/13/19 00:00 24 09/13/19 00:00 Mechanical Ventilator 09/13/19 00:00 72 09/12/19 22:52 71 12 24 09/12/19 20:48 74 12 24 09/12/19 20:30 80 124/52 09/12/19 20:00 Mechanical Ventilator 09/12/19 20:00 72 09/12/19 20:00 97.5 80 12 124/60 (81) 100 09/12/19 20:00 24 09/12/19 18:53 74 12 24 09/12/19 17:24 72 12 24 09/12/19 16:06 75 09/12/19 16:02 24 09/12/19 16:01 Mechanical Ventilator 09/12/19 16:00 98.1 75 12 126/51 (76) 100 09/12/19 15:25 75 12 24 Intake and Output 09/13/19 09/14/19 19:00 07:00 Intake Total 600 ml 560 ml Balance 600 ml 560 ml Free Water 100 ml 60 ml Tube Feeding 500 ml 500 ml Labs Test 09/11/19 17:45 09/11/19 23:32 09/12/19 03:00 09/12/19 05:13 POC Whole Blood Glucose 159 MG/DL (74-106) 152 MG/DL (74-106) 153 MG/DL (74-106) White Blood Count 19.1 K/UL (4.8-10.8) Red Blood Count 3.40 M/UL (4.70-6.10) Hemoglobin 9.0 G/DL (14.2-18.0) Hematocrit 29.1 % (42.0-52.0) Mean Corpuscular Volume 86 FL (80-99) Mean Corpuscular Hemoglobin 26.4 PG (27.0-31.0) Mean Corpuscular Hemoglobin Concent 30.8 G/DL (32.0-36.0) Red Cell Distribution Width 18.4 % (11.6-14.8) Platelet Count 404 K/UL (150-450) Mean Platelet Volume 6.5 FL (6.5-10.1) Neutrophils (%) (Auto) % (45.0-75.0) Lymphocytes (%) (Auto) % (20.0-45.0) Monocytes (%) (Auto) % (1.0-10.0) Eosinophils (%) (Auto) % (0.0-3.0) Basophils (%) (Auto) % (0.0-2.0) Differential Total Cells Counted 100 Neutrophils % (Manual) 68 % (45-75) Lymphocytes % (Manual) 20 % (20-45) Monocytes % (Manual) 7 % (1-10) Eosinophils % (Manual) 5 % (0-3) Basophils % (Manual) 0 % (0-2) Band Neutrophils 0 % (0-8) Platelet Estimate Adequate Platelet Morphology Normal Hypochromasia 1+ Anisocytosis 1+ Sodium Level 138 MMOL/L (136-145) Potassium Level 4.3 MMOL/L (3.5-5.1) Chloride Level 99 MMOL/L (98-107) Carbon Dioxide Level 32 MMOL/L (21-32) Anion Gap 7 mmol/L (5-15) Blood Urea Nitrogen 74 mg/dL (7-18) Creatinine 3.7 MG/DL (0.55-1.30) Estimat Glomerular Filtration Rate 16.0 mL/min (>60) Glucose Level 136 MG/DL (74-106) Calcium Level 8.9 MG/DL (8.5-10.1) Test 09/12/19 12:27 09/12/19 16:51 09/13/19 00:37 09/13/19 05:52 POC Whole Blood Glucose 131 MG/DL (74-106) 142 MG/DL (74-106) 155 MG/DL (74-106) 145 MG/DL (74-106) Test 09/13/19 11:15 09/13/19 11:31 09/13/19 17:47 09/13/19 23:07 White Blood Count 17.2 K/UL (4.8-10.8) Red Blood Count 3.11 M/UL (4.70-6.10) Hemoglobin 8.0 G/DL (14.2-18.0) Hematocrit 27.1 % (42.0-52.0) Mean Corpuscular Volume 87 FL (80-99) Mean Corpuscular Hemoglobin 25.6 PG (27.0-31.0) Mean Corpuscular Hemoglobin Concent 29.5 G/DL (32.0-36.0) Red Cell Distribution Width 19.1 % (11.6-14.8) Platelet Count 327 K/UL (150-450) Mean Platelet Volume 5.6 FL (6.5-10.1) Neutrophils (%) (Auto) 69.5 % (45.0-75.0) Lymphocytes (%) (Auto) 14.4 % (20.0-45.0) Monocytes (%) (Auto) 7.2 % (1.0-10.0) Eosinophils (%) (Auto) 8.0 % (0.0-3.0) Basophils (%) (Auto) 0.9 % (0.0-2.0) Sodium Level 140 MMOL/L (136-145) Potassium Level 4.2 MMOL/L (3.5-5.1) Chloride Level 102 MMOL/L (98-107) Carbon Dioxide Level 34 MMOL/L (21-32) Anion Gap 4 mmol/L (5-15) Blood Urea Nitrogen 46 mg/dL (7-18) Creatinine 2.9 MG/DL (0.55-1.30) Estimat Glomerular Filtration Rate 21.2 mL/min (>60) Glucose Level 143 MG/DL (74-106) Calcium Level 8.5 MG/DL (8.5-10.1) POC Whole Blood Glucose 141 MG/DL (74-106) 148 MG/DL (74-106) Test 09/14/19 03:20 09/14/19 05:33 09/14/19 08:40 White Blood Count 18.3 K/UL (4.8-10.8) 17.6 K/UL (4.8-10.8) Red Blood Count 3.32 M/UL (4.70-6.10) 3.40 M/UL (4.70-6.10) Hemoglobin 8.6 G/DL (14.2-18.0) 8.7 G/DL (14.2-18.0) Hematocrit 28.7 % (42.0-52.0) 29.3 % (42.0-52.0) Mean Corpuscular Volume 86 FL (80-99) 86 FL (80-99) Mean Corpuscular Hemoglobin 26.0 PG (27.0-31.0) 25.6 PG (27.0-31.0) Mean Corpuscular Hemoglobin Concent 30.1 G/DL (32.0-36.0) 29.6 G/DL (32.0-36.0) Red Cell Distribution Width 18.5 % (11.6-14.8) 18.5 % (11.6-14.8) Platelet Count 351 K/UL (150-450) 364 K/UL (150-450) Mean Platelet Volume 6.5 FL (6.5-10.1) 6.5 FL (6.5-10.1) Neutrophils (%) (Auto) % (45.0-75.0) 65.8 % (45.0-75.0) Lymphocytes (%) (Auto) % (20.0-45.0) 13.9 % (20.0-45.0) Monocytes (%) (Auto) % (1.0-10.0) 8.5 % (1.0-10.0) Eosinophils (%) (Auto) % (0.0-3.0) 10.8 % (0.0-3.0) Basophils (%) (Auto) % (0.0-2.0) 1.0 % (0.0-2.0) Differential Total Cells Counted 100 Neutrophils % (Manual) 65 % (45-75) Lymphocytes % (Manual) 18 % (20-45) Monocytes % (Manual) 8 % (1-10) Eosinophils % (Manual) 7 % (0-3) Basophils % (Manual) 2 % (0-2) Band Neutrophils 0 % (0-8) Platelet Estimate Adequate Platelet Morphology Normal Hypochromasia 2+ Anisocytosis 2+ Sodium Level 139 MMOL/L (136-145) Potassium Level 4.6 MMOL/L (3.5-5.1) Chloride Level 100 MMOL/L (98-107) Carbon Dioxide Level 33 MMOL/L (21-32) Anion Gap 6 mmol/L (5-15) Blood Urea Nitrogen 61 mg/dL (7-18) Creatinine 3.5 MG/DL (0.55-1.30) Estimat Glomerular Filtration Rate 17.0 mL/min (>60) Glucose Level 124 MG/DL (74-106) Calcium Level 9.0 MG/DL (8.5-10.1) Total Bilirubin 0.3 MG/DL (0.2-1.0) Aspartate Amino Transf (AST/SGOT) 46 U/L (15-37) Alanine Aminotransferase (ALT/SGPT) 28 U/L (12-78) Alkaline Phosphatase 270 U/L (46-116) Total Protein 8.1 G/DL (6.4-8.2) Albumin 1.8 G/DL (3.4-5.0) Globulin 6.3 g/dL Albumin/Globulin Ratio 0.3 (1.0-2.7) Height (Feet): 5 Height (Inches): 10.00 Weight (Pounds): 164 Objective Physical Exam General Appearance: nad, Chronically Ill Head: normocephalic Eyes: right eye PERRL - Will not open left eye ENT: moist mucus membranes Neck: other - submandibular mass R, fairly rigid with resistance to rotation to L, tracheotomy Respiratory: decreased breath sounds, crackles, other - pacemaker, vent+ Cardiovascular: regular rate, rhythm, edema - anasarca Gastrointestinal: non tender, distended, other - G tube Genitourinary: other Musculoskeletal: other - Contractures all extremities Neurologic: sensory intact, motor weakness, responsive Psychiatric: other Skin: Decubitus/Ulcer - Stage III right elbow, stage III left elbow, stage II sacrum, stage III scrotum, warm/dry Fitz Campos MD Sep 14, 2019 12:33
--- NOTE | 2019-09-14 12:47 | NUR ---
RD ASSESSMENT & RECOMMENDATIONS SEE CARE ACTIVITY FOR COMPLETE ASSESSMENT DAILY ESTIMATED NEEDS: Needs based on Renal, critical care, wound/ 61kg 22-30 kcals/kg [id number] total kcals 1.25-2 g protein/kg 76-122 g total protein Fluid per MD, now on HD NUTRITION DIAGNOSIS: * Swallowing difficulty R/T respiratory failure, dysphagia as evidenced by trach/vent dep, PEG dep * Increased kcal/prot needs R/T wound healing as evidenced by admitted w/ multiple pressure injuries including full thickness wounds at junction of Shaft of penis, dorsal scrotum, R elbow, and DTPI @ L buttocks. ENTERAL NUTRITION RECOMMENDATIONS: Vital AF 1.2 @ 50ml/hr x 24 hrs to provide 1200ml, 1440kcal,9 0g prot, 973ml free water * Maintain elemental TF of Vital AF 1.2 w/ continued diarrhea -> monitor lytes and renal fxn closely, monitor need for renal T -> TF @ goal will provide 1642mg K and 2025mg Phos * HOB over 30 degrees/ water flush per MD * Continue Garo BID via PEG ADDITIONAL RECOMMENDATIONS: * Per [facility]: HT=63" YA=434 lbs (vs EMR wt of 166lbs) -> obtain re-calibrated bedscale wt, rec daily wt monitoring * Wound healing: con't Nephrovite + Garo BID/ Vit C dosing per Nephro * Monitor renal fxn and lytes closely w/ non-renal TF - previously w/ multiple episodes of low K and phos - Check f/up phos (1.0-> now 1.5) * Add probiotics and anti-diarrheal meds - prolonged diarrhea, +rectal tube
--- NOTE | 2019-09-14 14:15 | Infectious Diseases Prog Note ---
Assessment/Plan Assessment/Plan antibiotics : none A 1. klebsiella catheter infection s/p rx 2. respiratory failure 3. leucocytosis improving 4. klebsiella, pseudomonas, providencia pneumonia s/p rx COVID 19 test negative x 2 5. renal failure on HD P 1. observe off antibiotics 2. start lactobacillus 3. will follow up cultures Subjective ROS Limited/Unobtainable: Yes Allergies: Coded Allergies: No Known Allergies (Unverified , 06/10/19) Objective Last 24 Hour Vital Signs Date Time Temp Pulse Resp B/P (MAP) Pulse Ox O2 Delivery O2 Flow Rate FiO2 09/14/19 12:00 Mechanical Ventilator 09/14/19 12:00 24 09/14/19 12:00 98.2 78 14 128/55 (79) 96 09/14/19 11:42 82 09/14/19 10:57 65 12 24 09/14/19 09:22 76 13 24 09/14/19 08:55 73 155/60 09/14/19 08:55 155/60 09/14/19 08:00 70 09/14/19 08:00 Mechanical Ventilator 09/14/19 08:00 97.4 78 14 155/69 (97) 100 09/14/19 08:00 24 09/14/19 07:06 73 13 24 09/14/19 05:35 71 22 24 09/14/19 04:00 98.0 73 14 155/60 (91) 100 09/14/19 04:00 Mechanical Ventilator 09/14/19 04:00 24 09/14/19 03:47 66 12 09/14/19 03:36 65 09/14/19 01:49 67 12 24 09/14/19 00:00 97.8 70 12 145/78 (100) 100 09/14/19 00:00 Mechanical Ventilator 09/13/19 23:31 65 12 24 09/13/19 23:29 68 09/13/19 21:40 67 15 24 09/13/19 20:44 69 133/60 09/13/19 20:00 98.1 69 13 133/60 (84) 99 09/13/19 20:00 Mechanical Ventilator 09/13/19 20:00 24 09/13/19 19:57 70 12 24 09/13/19 19:07 69 09/13/19 16:55 70 12 24 09/13/19 16:00 Mechanical Ventilator 09/13/19 16:00 98.2 71 13 125/51 (75) 99 09/13/19 16:00 24 09/13/19 15:15 69 09/13/19 15:01 75 12 24 Height (Feet): 5 Height (Inches): 10.00 Weight (Pounds): 164 HEENT: status post trach Respiratory/Chest: lungs clear Cardiovascular: normal rate, regular rhythm, no gallop/murmur Abdomen: soft, non tender, other - GT Extremities: other - + edema, right subclavian catheter Laboratory Tests Test 09/13/19 17:47 09/13/19 23:07 09/14/19 03:20 09/14/19 05:33 POC Whole Blood Glucose 148 MG/DL (74-106) H Pending Pending White Blood Count 18.3 K/UL (4.8-10.8) H Red Blood Count 3.32 M/UL (4.70-6.10) L Hemoglobin 8.6 G/DL (14.2-18.0) L Hematocrit 28.7 % (42.0-52.0) L Mean Corpuscular Volume 86 FL (80-99) Mean Corpuscular Hemoglobin 26.0 PG (27.0-31.0) L Mean Corpuscular Hemoglobin Concent 30.1 G/DL (32.0-36.0) L Red Cell Distribution Width 18.5 % (11.6-14.8) H Platelet Count 351 K/UL (150-450) Mean Platelet Volume 6.5 FL (6.5-10.1) Neutrophils (%) (Auto) % (45.0-75.0) Lymphocytes (%) (Auto) % (20.0-45.0) Monocytes (%) (Auto) % (1.0-10.0) Eosinophils (%) (Auto) % (0.0-3.0) Basophils (%) (Auto) % (0.0-2.0) Differential Total Cells Counted 100 Neutrophils % (Manual) 65 % (45-75) Lymphocytes % (Manual) 18 % (20-45) L Monocytes % (Manual) 8 % (1-10) Eosinophils % (Manual) 7 % (0-3) H Basophils % (Manual) 2 % (0-2) Band Neutrophils 0 % (0-8) Platelet Estimate Adequate Platelet Morphology Normal Hypochromasia 2+ Anisocytosis 2+ Sodium Level 139 MMOL/L (136-145) Potassium Level 4.6 MMOL/L (3.5-5.1) Chloride Level 100 MMOL/L (98-107) Carbon Dioxide Level 33 MMOL/L (21-32) H Anion Gap 6 mmol/L (5-15) Blood Urea Nitrogen 61 mg/dL (7-18) H Creatinine 3.5 MG/DL (0.55-1.30) H Estimat Glomerular Filtration Rate 17.0 mL/min (>60) Glucose Level 124 MG/DL (74-106) H Calcium Level 9.0 MG/DL (8.5-10.1) Total Bilirubin 0.3 MG/DL (0.2-1.0) Aspartate Amino Transf (AST/SGOT) 46 U/L (15-37) H Alanine Aminotransferase (ALT/SGPT) 28 U/L (12-78) Alkaline Phosphatase 270 U/L (46-116) H Total Protein 8.1 G/DL (6.4-8.2) Albumin 1.8 G/DL (3.4-5.0) L Globulin 6.3 g/dL Albumin/Globulin Ratio 0.3 (1.0-2.7) L Test 09/14/19 08:40 09/14/19 12:36 White Blood Count 17.6 K/UL (4.8-10.8) H Red Blood Count 3.40 M/UL (4.70-6.10) L Hemoglobin 8.7 G/DL (14.2-18.0) L Hematocrit 29.3 % (42.0-52.0) L Mean Corpuscular Volume 86 FL (80-99) Mean Corpuscular Hemoglobin 25.6 PG (27.0-31.0) L Mean Corpuscular Hemoglobin Concent 29.6 G/DL (32.0-36.0) L Red Cell Distribution Width 18.5 % (11.6-14.8) H Platelet Count 364 K/UL (150-450) Mean Platelet Volume 6.5 FL (6.5-10.1) Neutrophils (%) (Auto) 65.8 % (45.0-75.0) Lymphocytes (%) (Auto) 13.9 % (20.0-45.0) L Monocytes (%) (Auto) 8.5 % (1.0-10.0) Eosinophils (%) (Auto) 10.8 % (0.0-3.0) H Basophils (%) (Auto) 1.0 % (0.0-2.0) POC Whole Blood Glucose 160 MG/DL (74-106) H Current Medications Medications (Trade) Dose Ordered Sig/Leonel Route PRN Reason Start Time Stop Time Status Last Admin Dose Admin Acetaminophen (Tylenol) 650 mg Q4H PRN GT Mild Pain (Pain Scale 1-3) 09/09/19 00:45 10/09/19 00:44 09/09/19 00:44 Atorvastatin Calcium (Lipitor) 40 mg BEDTIME GT 08/09/19 21:00 11/07/19 20:59 09/13/19 20:43 Chlorhexidine Gluconate (Felipa-Hex 2%) 1 applic DAILY@1999 TOPIC 09/12/19 20:00 12/11/19 19:59 09/13/19 20:43 Clonidine HCl (Catapres Tab) 0.1 mg Q4H PRN GT For High Blood Pressure 09/09/19 12:30 12/08/19 05:29 09/13/19 03:11 Dextrose (Dextrose 50%) 25 ml Q30M PRN IV Hypoglycemia 08/09/19 07:30 11/07/19 07:29 Dextrose (Dextrose 50%) 50 ml Q30M PRN IV Hypoglycemia 08/09/19 07:30 11/07/19 07:29 Epoetin Andreas (Epoetin Andreas(ESRD on dialysis)) 10,000 unit WED-WED-WED SUBQ 08/18/19 21:00 11/16/19 20:59 09/13/19 21:39 Famotidine (Pepcid) 20 mg DAILY GT 08/30/19 09:00 11/28/19 08:59 09/14/19 09:03 Heparin Sodium (Porcine) (Heparin Sod 1000 units/ml 10ml) 500 unit ONCE IV 09/14/19 09:30 09/14/19 23:59 Heparin Sodium (Porcine) (Heparin) 1,000 unit POSTHD INJ 09/14/19 09:30 10/29/19 09:29 Insulin Aspart (NovoLOG) Q6HR SUBQ 08/10/19 00:00 11/07/19 11:29 09/14/19 12:40 Lactobacillus Acidophilus (Culturelle) 1 tab TWICE A DAY GT 09/14/19 18:00 12/13/19 17:59 Metoprolol Tartrate (Lopressor) 200 mg Q12HR GT 08/09/19 09:00 11/07/19 08:59 09/13/19 20:44 Minoxidil (Loniten) 5 mg DAILY GT 08/09/19 09:00 11/07/19 08:59 09/11/19 08:24 Sodium Chloride 1,000 ml @ 500 mls/hr Q2H PRN IVLG sbp<90 during hd 09/14/19 09:26 10/14/19 09:25 Zinc Oxide (Zinc Oxide) 1 applic BID TOPIC 08/10/19 18:00 11/08/19 17:59 09/14/19 09:03 Farnaz Lyle MD Sep 14, 2019 14:15
[2019-09-14] MEDS ORDERED: NS 275ml ONE (15:13)
[2019-09-14 16:00] VITALS: BP 144/61
--- NOTE | 2019-09-14 17:53 | Surgery Progress Note ---
Surgery Progress Note Subjective Procedure Performed Right femoral temporary hemodialysis catheter removal Additional Comments leukocytosis exam stable Objective Last 24 Hour Vital Signs Date Time Temp Pulse Resp B/P (MAP) Pulse Ox O2 Delivery O2 Flow Rate FiO2 09/14/19 17:30 72 12 24 09/14/19 16:00 Mechanical Ventilator 09/14/19 16:00 78 09/14/19 16:00 98.0 72 14 144/61 (88) 100 09/14/19 16:00 24 09/14/19 15:01 78 16 24 09/14/19 13:04 72 17 24 09/14/19 12:00 Mechanical Ventilator 09/14/19 12:00 24 09/14/19 12:00 98.2 78 14 128/55 (79) 96 09/14/19 11:42 82 09/14/19 10:57 65 12 24 09/14/19 09:22 76 13 24 09/14/19 08:55 73 155/60 09/14/19 08:55 155/60 09/14/19 08:00 70 09/14/19 08:00 Mechanical Ventilator 09/14/19 08:00 97.4 78 14 155/69 (97) 100 09/14/19 08:00 24 09/14/19 07:06 73 13 24 09/14/19 05:35 71 22 24 09/14/19 04:00 98.0 73 14 155/60 (91) 100 09/14/19 04:00 Mechanical Ventilator 09/14/19 04:00 24 09/14/19 03:47 66 12 24 09/14/19 03:36 65 09/14/19 01:49 67 12 24 09/14/19 00:00 97.8 70 12 145/78 (100) 100 09/14/19 00:00 Mechanical Ventilator 09/13/19 23:31 65 12 24 09/13/19 23:29 68 09/13/19 21:40 67 15 24 09/13/19 20:44 69 133/60 09/13/19 20:00 98.1 69 13 133/60 (84) 99 09/13/19 20:00 Mechanical Ventilator 09/13/19 20:00 24 09/13/19 19:57 70 12 24 09/13/19 19:07 69 I&O Intake and Output 09/13/19 09/14/19 19:00 07:00 Intake Total 600 ml 560 ml Balance 600 ml 560 ml Free Water 100 ml 60 ml Tube Feeding 500 ml 500 ml Dressing: saturated Cardiovascular: RSR Respiratory: decreased breath sounds Abdomen: soft, non-tender, present bowel sounds Extremities: no cyanosis Laboratory Tests Test 09/13/19 23:07 09/14/19 03:20 09/14/19 05:33 09/14/19 08:40 POC Whole Blood Glucose Pending Pending White Blood Count 18.3 K/UL (4.8-10.8) H 17.6 K/UL (4.8-10.8) H Red Blood Count 3.32 M/UL (4.70-6.10) L 3.40 M/UL (4.70-6.10) L Hemoglobin 8.6 G/DL (14.2-18.0) L 8.7 G/DL (14.2-18.0) L Hematocrit 28.7 % (42.0-52.0) L 29.3 % (42.0-52.0) L Mean Corpuscular Volume 86 FL (80-99) 86 FL (80-99) Mean Corpuscular Hemoglobin 26.0 PG (27.0-31.0) L 25.6 PG (27.0-31.0) L Mean Corpuscular Hemoglobin Concent 30.1 G/DL (32.0-36.0) L 29.6 G/DL (32.0-36.0) L Red Cell Distribution Width 18.5 % (11.6-14.8) H 18.5 % (11.6-14.8) H Platelet Count 351 K/UL (150-450) 364 K/UL (150-450) Mean Platelet Volume 6.5 FL (6.5-10.1) 6.5 FL (6.5-10.1) Neutrophils (%) (Auto) % (45.0-75.0) 65.8 % (45.0-75.0) Lymphocytes (%) (Auto) % (20.0-45.0) 13.9 % (20.0-45.0) L Monocytes (%) (Auto) % (1.0-10.0) 8.5 % (1.0-10.0) Eosinophils (%) (Auto) % (0.0-3.0) 10.8 % (0.0-3.0) H Basophils (%) (Auto) % (0.0-2.0) 1.0 % (0.0-2.0) Differential Total Cells Counted 100 Neutrophils % (Manual) 65 % (45-75) Lymphocytes % (Manual) 18 % (20-45) L Monocytes % (Manual) 8 % (1-10) Eosinophils % (Manual) 7 % (0-3) H Basophils % (Manual) 2 % (0-2) Band Neutrophils 0 % (0-8) Platelet Estimate Adequate Platelet Morphology Normal Hypochromasia 2+ Anisocytosis 2+ Sodium Level 139 MMOL/L (136-145) Potassium Level 4.6 MMOL/L (3.5-5.1) Chloride Level 100 MMOL/L (98-107) Carbon Dioxide Level 33 MMOL/L (21-32) H Anion Gap 6 mmol/L (5-15) Blood Urea Nitrogen 61 mg/dL (7-18) H Creatinine 3.5 MG/DL (0.55-1.30) H Estimat Glomerular Filtration Rate 17.0 mL/min (>60) Glucose Level 124 MG/DL (74-106) H Calcium Level 9.0 MG/DL (8.5-10.1) Total Bilirubin 0.3 MG/DL (0.2-1.0) Aspartate Amino Transf (AST/SGOT) 46 U/L (15-37) H Alanine Aminotransferase (ALT/SGPT) 28 U/L (12-78) Alkaline Phosphatase 270 U/L (46-116) H Total Protein 8.1 G/DL (6.4-8.2) Albumin 1.8 G/DL (3.4-5.0) L Globulin 6.3 g/dL Albumin/Globulin Ratio 0.3 (1.0-2.7) L Test 09/14/19 12:36 POC Whole Blood Glucose 160 MG/DL (74-106) H Plan Problems: (1) Anemia (2) Hyponatremia (3) Leukocytosis Assessment & Plan: Tracheostomy, left chest pacemaker are again demonstrated. There is bilateral interstitial and airspace disease and bilateral pleural fluid again demonstrated. This appears more severe than on the prior study. Bilateral interstitial and airspace infiltrates versus edema. Bilateral pleural effusions Leukocytosis, anemia, tachycardia, abnormal labs. Wound evaluated and likely etiology of patient's sepsis. Leukocytosis etiology work-up antibiotics per infectious disease Appreciate nephrology input transfuse with dialysis We will follow with recommendations thank you allowing participation's care plan HD access temp HD discussed with medical teams line okay HD as per renal persistent leukocytosis flow cyto noted improving trending down right fem line removed (4) Ventilator dependent (5) Right lower lobe pneumonia (6) Hypokalemia (7) Hyperkalemia (8) Anasarca (9) Decubitus skin ulcer Assessment & Plan: pt presented on admission with generalized edemae.Skin assessed under tracheostomy and no areas of concerns noted. GT Insertion is marginally erythematous with small amt slough at stoma. Unstageable Pressure Injury R elbow. Base of wound is 100% yellow slough, Borders are erythematous. Wound oozing small amt haemopurulent exudate.Darker skin tone without elevation in skin temp or erythema periwound. Pt's penis and scrotum are grossly edematous and enlarged and weeping serous exudate from numerous sites both from penis and scrotum. Two small open wounds noted at base of at base of shaft of penis ,and contreras aspect of scrotum. Both wounds oozing large amt sanguineous and serosanguineous exudate. Multiple open wounds with Biofilm at base of each wounds noted to contreras/lateral,inferior and posterior aspects of scrotum. These wounds noted to be oozing moderate amts of serosanguineous exudate. Hypertrophic scar with scattered areas of hyperpigmentation noted to Sacrum. DTPI noted to L Buttocks (L)7cm x (W)9cm. Base of wound is purple and indurated.Darker skin tone without erythema, induration or fluctuance R and L ischial tuberosities. Both heels are boggy with non-blanchable erythema. Tx.Plan: Cleanse wound R elbow with Saline. Apply TheraHoney, Apply Moisture Barrier Paste periwound. Cover with Optifoam drsg.Change Daily and prn. Wash GT site with soap and water.Pat dry. Apply Zinc Oxide Paste to GT site Daily. Leave Open to Air. Apply Zinc Oxide Paste to entire Scrotum, Place ABD pads to R and L lateral, and posterior aspects of scrotum TWICE daily. Apply Cavilon Skin Barrier to malleoli and both Heels. Cover each site with Optifoam drsgs. Change every 7 days and prn. Reposition at least every 2hours or as tolerated. Off-load heels with Pillows. APM/BECCA Mattress overlay. (10) Malnutrition Assessment & Plan: DAILY ESTIMATED NEEDS: Needs based on Renal, critical care, wound/ 61kg 22-30 kcals/kg 9865-6316 total kcals 1.25-2 g protein/kg 76-122 g total protein Fluid per MD, now on HD NUTRITION DIAGNOSIS: * Swallowing difficulty R/T respiratory failure, dysphagia as evidenced by trach/vent dep, PEG dep * Increased kcal/prot needs R/T wound healing as evidenced by admitted w/ multiple pressure injuries including full thickness wounds at junction of Shaft of penis, dorsal scrotum, R elbow, and DTPI @ L buttocks. CURRENT TF:Vital AF 1.2 @ 50ml/hr x 24 hrs + Garo BID ENTERAL NUTRITION RECOMMENDATIONS: Vital AF 1.2 @ 50ml/hr x 24 hrs to provide 1200ml, 1440kcal,9 0g prot, 973ml free water * Maintain elemental TF of Vital AF 1.2 w/ continued diarrhea -> monitor lytes and renal fxn closely, monitor need for renal T -> TF @ goal will provide 1642mg K and 2025mg Phos * HOB over 30 degrees/ water flush per MD * Continue Garo BID via PEG ADDITIONAL RECOMMENDATIONS: * Per SNF: HT=63" BR=440 lbs (vs EMR wt of 166lbs) -> obtain re-calibrated bedscale wt, rec daily wt monitoring * Wound healing: con't Nephrovite + Garo BID/ Vit C dosing per Nephro * Monitor renal fxn and lytes closely w/ non-renal TF - previously w/ multiple episodes of low K and phos - Check f/up phos (1. 0on 09/04) * Add probiotics and anti-diarrheal meds - prolonged diarrhea, +rectal tube (11) Uremia (12) CKD (chronic kidney disease) stage 5, GFR less than 15 ml/min (13) Colon distention Assessment & Plan: discussed with GI likely functional as having lots of loose bm rectal tube kub f/u s/p colonoscopy - findings reviewed with GI Marked distention of the sigmoid colon. 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 No evidence of bowel wall thickening or pneumatosis 12 mm focus of contrast enhancement in the right pectineus muscle. While nonspecific in appearance, appearance raises concern for a possible pseudoaneurysm. Ill- defined thickening of the pectus medius muscle could indicate some intramuscular hemorrhage. The above findings were phoned to Dr. Urias at the time of interpretation Large bilateral pleural effusions Hazy pulmonary parenchymal opacities as well as dense consolidative opacities most likely represent pulmonary edema, but could represent pneumonia Evidence of anasarca elsewhere, with generalized edema of the subcutaneous fat Bladder wall thickening, raises concern for cystitis. Avalos catheter in place Colonic diverticulosis. No evidence of diverticulitis. Tracheostomy Pacemaker Gastrostomy Jonathan Urias Sep 14, 2019 17:52
[2019-09-14] MEDS: Lactobacillus-GG tablet GT SCH (18:28)
--- NOTE | 2019-09-14 19:22 | NUR ---
HAND-OFF: Report given to TAMICA Worley. Pt remains stable.
--- NOTE | 2019-09-14 19:30 | NUR ---
NURSE NOTES: Received pt's report from TAMICA Madsen. Pt is on laying on bed, open eyes, no eye tracking noted. Pt is on vent, AC 12, Vt 550, FiO2 24%, PEEP 5. SpO2 96%, HR 80, RR 13. No s/s of respiratory distress noted. Pt is on G-tube, Vital AF 1.2 @50mL/HR running. Pt is on rectal tube, Greenish brown liquid stool noted. IV site clean and intact noted. Call-light within reach. Bed is low and locked position. Will continue to monitor with plan of care.
[2019-09-14 20:00] VITALS: BP 139/53
[2019-09-14] MEDS: Dyna-Hex 2% Top Sol 2oz TOPIC SCH (20:46)
[2019-09-14] MEDS: Atorvastatin 20mg tab GT SCH (20:47)
--- NOTE | 2019-09-14 22:11 | General Progress Note ---
Assessment/Plan Assessment/Plan: Assessment - colonoscopy negative to hepatic flexure - diarrhea - presumed TF related - abnormal LFT - Anemia - leukocytosis - resolved thrombocytosis - stool OB (+) - EGD --> gastritis - Renal failure - Anasarca - resp failure, trach - dysphagia, GT - encephalopathy, contracted - poor px Recommendations - Continue TF - Elevate HOB - f/u Biopsies of colon --> negative - PPI - abx - supportive care Subjective Allergies: Coded Allergies: No Known Allergies (Unverified , 06/10/19) Subjective Above noted no events tolerating TF Objective Last 24 Hour Vital Signs Date Time Temp Pulse Resp B/P (MAP) Pulse Ox O2 Delivery O2 Flow Rate FiO2 09/14/19 20:47 80 139/53 09/14/19 20:00 98.6 80 13 139/53 (81) 100 09/14/19 20:00 79 09/14/19 20:00 24 09/14/19 19:30 80 13 24 09/14/19 17:30 72 12 24 09/14/19 16:00 Mechanical Ventilator 09/14/19 16:00 78 09/14/19 16:00 98.0 72 14 144/61 (88) 100 09/14/19 16:00 24 09/14/19 15:01 78 16 24 09/14/19 13:04 72 17 24 09/14/19 12:00 Mechanical Ventilator 09/14/19 12:00 24 09/14/19 12:00 98.2 78 14 128/55 (79) 96 09/14/19 11:42 82 09/14/19 10:57 65 12 24 09/14/19 09:22 76 13 24 09/14/19 08:55 73 155/60 09/14/19 08:55 155/60 09/14/19 08:00 70 09/14/19 08:00 Mechanical Ventilator 09/14/19 08:00 97.4 78 14 155/69 (97) 100 09/14/19 08:00 24 09/14/19 07:06 73 13 24 09/14/19 05:35 71 22 24 09/14/19 04:00 98.0 73 14 155/60 (91) 100 09/14/19 04:00 Mechanical Ventilator 09/14/19 04:00 24 09/14/19 03:47 66 12 24 09/14/19 03:36 65 09/14/19 01:49 67 12 24 09/14/19 00:00 97.8 70 12 145/78 (100) 100 09/14/19 00:00 Mechanical Ventilator 09/13/19 23:31 65 12 24 09/13/19 23:29 68 Intake and Output 09/13/19 09/14/19 19:00 07:00 Intake Total 600 ml 660 ml Balance 600 ml 660 ml Free Water 100 ml 60 ml Tube Feeding 500 ml 600 ml Laboratory Tests 09/13/19 23:07: POC Whole Blood Glucose [Pending] 09/14/19 03:20: White Blood Count 18.3H, Red Blood Count 3.32L, Hemoglobin 8.6L, Hematocrit 28.7L, Mean Corpuscular Volume 86, Mean Corpuscular Hemoglobin 26.0L, Mean Corpuscular Hemoglobin Concent 30.1L, Red Cell Distribution Width 18.5H, Platelet Count 351, Mean Platelet Volume 6.5, Neutrophils (%) (Auto) , Lymphocytes (%) (Auto) , Monocytes (%) (Auto) , Eosinophils (%) (Auto) , Basophils (%) (Auto) , Differential Total Cells Counted 100, Neutrophils % ( Manual) 65, Lymphocytes % (Manual) 18L, Monocytes % (Manual) 8, Eosinophils % ( Manual) 7H, Basophils % (Manual) 2, Band Neutrophils 0, Platelet Estimate Adequate, Platelet Morphology Normal, Hypochromasia 2+, Anisocytosis 2+, Sodium Level 139, Potassium Level 4.6, Chloride Level 100, Carbon Dioxide Level 33H, Anion Gap 6, Blood Urea Nitrogen 61H, Creatinine 3.5H, Estimat Glomerular Filtration Rate 17.0, Glucose Level 124H, Calcium Level 9.0, Total Bilirubin 0.3 , Aspartate Amino Transf (AST/SGOT) 46H, Alanine Aminotransferase (ALT/SGPT) 28 , Alkaline Phosphatase 270H, Total Protein 8.1, Albumin 1.8L, Globulin 6.3, Albumin/Globulin Ratio 0.3L 09/14/19 05:33: POC Whole Blood Glucose [Pending] 09/14/19 08:40: White Blood Count 17.6H, Red Blood Count 3.40L, Hemoglobin 8.7L, Hematocrit 29.3L, Mean Corpuscular Volume 86, Mean Corpuscular Hemoglobin 25.6L, Mean Corpuscular Hemoglobin Concent 29.6L, Red Cell Distribution Width 18.5H, Platelet Count 364, Mean Platelet Volume 6.5, Neutrophils (%) (Auto) 65.8, Lymphocytes (%) (Auto) 13.9L, Monocytes (%) (Auto) 8.5, Eosinophils (%) (Auto) 10.8H, Basophils (%) (Auto) 1.0 09/14/19 12:36: POC Whole Blood Glucose 160H 09/14/19 18:26: POC Whole Blood Glucose 146H Height (Feet): 5 Height (Inches): 10.00 Weight (Pounds): 164 Objective Debilitated AA man NCAT (+) trach coarse BS RR abd distended, anasarca, (+) GT ext (+) edema contracted Ronny Mustafa MD Sep 14, 2019 22:11
--- NOTE | 2019-09-14 23:05 | NUR ---
NURSE NOTES: orthodontic laboratory technician is in patient's room and begin to dialysis. Heparin is given to the mobile sales technician per order.
[2019-09-15] VITALS: BP 120/58
--- NOTE | 2019-09-15 02:30 | NUR ---
NURSE NOTES: Dialysis is done. 3500ML out according to case technician. At this moment, VS BP 147/66, HR 72, Temp 98F, RR 22.
[2019-09-15 03:54] VITALS: BP 158/73
--- NOTE | 2019-09-15 04:10 | NUR ---
NURSE NOTES: Patient's BP is fluctuant, went up to 189/85, measured BP on arm and right leg, both BP were high. Administered Clonidine 0.1mg tab PRN medication.
[2019-09-15 04:39] LABS: HEMATOCRIT 32.1 % (42.0-52.0); HEMOGLOBIN 9.5 G/DL (14.2-18.0); MEAN CORPUSCULAR VOLUME 88 FL (80-99); PLATELET COUNT 338 K/UL (150-450); RED BLOOD COUNT 3.64 M/UL (4.70-6.10); RED CELL DISTRIBUTION WIDTH 18.5 % (11.6-14.8); WHITE BLOOD COUNT 18.5 K/UL (4.8-10.8)
[2019-09-15] MEDS: NovoLOG Insulin Flexpen SUBQ SCH ×5 (05:25→23:10)
--- NOTE | 2019-09-15 07:25 | NUR ---
NURSE NOTES: Received report from TAMICA Worley. Patient is resting in bed, in stable condition. No s/sx of SOB, breathing is even and unlabored, patient on vent with vent settings as ordered. Patient is nonverbal, observed no presence of pain or discomfort at this time. Bed is in lowest position, brakes engaged. Call light is kept within easy reach. Will continue to monitor patient.
--- NOTE | 2019-09-15 07:30 | NUR ---
NURSE HAND-OFF REPORT: Important Events on Shift:[Dialysis 3500mL out last night, BP was fluctuant.] Patient Status: [Stable at this moment] Diet: [GT, Vital AF 1.2@50mL/HR for 24 HRS] Pending Orders: [Need to follow up discharge plan] Pending Results/Labs:[Some of BMPs] Pending MD notification:[N/A] Latest Vital Signs: Temperature 97.9 , Pulse 72 , B/P 165 /76 , Respiratory Rate 12 , O2 SAT 98 , Mechanical Ventilator, O2 Flow Rate 15.0 . Vital Sign Comment: [Stable at this moment, BP 110/45, but BP was fluctuant last night] EKG Rhythm: V-Paced Rhythm change?: N MD Notified?: - MD Response: Latest Delacruz Fall Score: 70 Fall Risk: High Risk Safety Measures: Call light Within Reach, Bed Alarm Zone 2, Side Rails Side Rails x3, Bed position Low and Locked. Fall Precautions: Yellow Socks Yellow Gown Door Sign Patient Fall Education Report given to [TAMICA Espino].
--- NOTE | 2019-09-15 07:36 | NUR ---
NURSE HAND-OFF REPORT: Important Events on Shift: Patient Status: Diet: Pending Orders: Pending Results/Labs: Pending MD notification:n/a Latest Vital Signs: Temperature 97.9 , Pulse 72 , B/P 165 /76 , Respiratory Rate 12 , O2 SAT 98 , Mechanical Ventilator, O2 Flow Rate 15.0 . Vital Sign Comment: EKG Rhythm: V-Paced Rhythm change?: N/A MD Notified?: - MD Response: Latest Delacruz Fall Score: 70 Fall Risk: High Risk Safety Measures: Call light Within Reach, Bed Alarm Zone 2, Side Rails Side Rails x3, Bed position Low and Locked. Fall Precautions: Yellow Socks Yellow Gown Door Sign Patient Fall Education Report given to . Addendum: 09/15/19 at 0751 by Deep Batista RN Doesn't show the data that I have put
[2019-09-15 07:51] VITALS: BP 132/58
[2019-09-15] MEDS: Minoxidil 2.5mg tab GT SCH (08:03)
[2019-09-15] MEDS: Zinc Oxide Oint 2oz TOPIC SCH ×2 (08:04→17:17)
[2019-09-15] MEDS: Metoprolol Tartrate 100mg tab GT SCH ×2 (08:04→20:04)
[2019-09-15] MEDS: Lactobacillus-GG tablet GT SCH ×2 (08:04→17:17)
--- NOTE | 2019-09-15 08:23 | General Progress Note ---
Assessment/Plan Assessment/Plan: IMPRESSION: 1. anemia. 2. GI bleed. 3. Leukocytosis. 4. Probable sepsis. + BCX 5. Acute on chronic renal failure. 6. Hyponatremia. 7. Severe protein-calorie malnutrition. 8. Significantly elevated C-reactive protein concerning for infectious etiology. 9. Tracheostomy, G-tube. 10. Ventilator dependence. 11. anasarca with bilateral pleural effusion 12. Hematuria 13. V pacing PLAN needs placement care noted on vent/ no wean surgical follow up monitor labs and adjust RX ID follow up monitor renal function: HD prognosis poor impression, plan, and exam edited and reviewed in detail care discussed with RN Subjective ROS Limited/Unobtainable: Yes Allergies: Coded Allergies: No Known Allergies (Unverified , 06/10/19) Subjective remains ill on vent on HD Objective Last 24 Hour Vital Signs Date Time Temp Pulse Resp B/P (MAP) Pulse Ox O2 Delivery O2 Flow Rate FiO2 09/15/19 08:04 71 132/58 09/15/19 08:03 132/58 09/15/19 08:00 Mechanical Ventilator 09/15/19 08:00 24 09/15/19 07:51 98.1 71 14 132/58 (82) 96 09/15/19 06:53 72 12 24 09/15/19 04:55 73 12 24 09/15/19 04:10 165/76 09/15/19 04:00 Mechanical Ventilator 09/15/19 04:00 24 09/15/19 03:54 97.9 73 13 158/73 (101) 98 09/15/19 03:40 73 09/15/19 03:00 60 12 24 09/15/19 01:05 72 12 24 09/15/19 00:00 Mechanical Ventilator 09/15/19 00:00 98.6 71 12 120/58 (78) 98 09/14/19 23:43 71 09/14/19 23:16 69 12 24 09/14/19 21:06 70 12 24 09/14/19 20:47 80 139/53 09/14/19 20:00 98.6 80 13 139/53 (81) 100 09/14/19 20:00 Mechanical Ventilator 09/14/19 20:00 79 09/14/19 20:00 24 09/14/19 19:30 80 13 24 09/14/19 17:30 72 12 24 09/14/19 16:00 Mechanical Ventilator 09/14/19 16:00 78 09/14/19 16:00 98.0 72 14 144/61 (88) 100 09/14/19 16:00 24 09/14/19 15:01 78 16 24 09/14/19 13:04 72 17 24 09/14/19 12:00 Mechanical Ventilator 09/14/19 12:00 24 09/14/19 12:00 98.2 78 14 128/55 (79) 96 09/14/19 11:42 82 09/14/19 10:57 65 12 24 09/14/19 09:22 76 13 24 09/14/19 08:55 73 155/60 09/14/19 08:55 155/60 Intake and Output 09/14/19 09/15/19 19:00 07:00 Intake Total 660 ml 630 ml Output Total 200 ml 3500 ml Balance 460 ml -2870 ml Free Water 60 ml 80 ml Tube Feeding 600 ml 550 ml Stool Total 200 ml 0 ml Hemodialysis UF 3500 ml Laboratory Tests 09/14/19 08:40: White Blood Count 17.6H, Red Blood Count 3.40L, Hemoglobin 8.7L, Hematocrit 29.3L, Mean Corpuscular Volume 86, Mean Corpuscular Hemoglobin 25.6L, Mean Corpuscular Hemoglobin Concent 29.6L, Red Cell Distribution Width 18.5H, Platelet Count 364, Mean Platelet Volume 6.5, Neutrophils (%) (Auto) 65.8, Lymphocytes (%) (Auto) 13.9L, Monocytes (%) (Auto) 8.5, Eosinophils (%) (Auto) 10.8H, Basophils (%) (Auto) 1.0 09/14/19 12:36: POC Whole Blood Glucose 160H 09/14/19 18:26: POC Whole Blood Glucose 146H 09/15/19 03:45: White Blood Count 18.5H, Red Blood Count 3.64L, Hemoglobin 9.5L, Hematocrit 32.1L, Mean Corpuscular Volume 88, Mean Corpuscular Hemoglobin 26.1L, Mean Corpuscular Hemoglobin Concent 29.6L, Red Cell Distribution Width 18.5H, Platelet Count 338, Mean Platelet Volume 6.3L, Neutrophils (%) (Auto) , Lymphocytes (%) (Auto) , Monocytes (%) (Auto) , Eosinophils (%) (Auto) , Basophils (%) (Auto) , Neutrophils % (Manual) [Pending], Lymphocytes % (Manual) [Pending], Platelet Estimate [Pending], Platelet Morphology [Pending] Height (Feet): 5 Height (Inches): 10.00 Weight (Pounds): 155 Objective GENERAL: Ill-appearing male, chronically debilitated. HEENT: Tracheostomy in midline. Questionable fullness in the submandibular region. LUNGS: Coarse breath sounds. reduced breath sounds CARDIAC: S1, S2. Regular rate and rhythm. ABDOMEN: Soft. G-tube. EXTREMITIES: With noted edema. NEUROLOGICAL: Poorly responsive, weak diffusely. Kain Ramirez MD Sep 15, 2019 08:23
--- NOTE | 2019-09-15 10:02 | Nephrology Progress Note ---
Assessment/Plan Plan Smoldering Sepsis - IV Abx Established ESRD - HD now TTS. Subjective Subjective Obtunded. Objective Objective Last 24 Hour Vital Signs Date Time Temp Pulse Resp B/P (MAP) Pulse Ox O2 Delivery O2 Flow Rate FiO2 09/15/19 08:49 68 12 24 09/15/19 08:04 71 132/58 09/15/19 08:03 132/58 09/15/19 08:00 Mechanical Ventilator 09/15/19 08:00 24 09/15/19 08:00 71 09/15/19 07:51 98.1 71 14 132/58 (82) 96 09/15/19 06:53 72 12 24 09/15/19 04:55 73 12 24 09/15/19 04:10 165/76 09/15/19 04:00 Mechanical Ventilator 09/15/19 04:00 24 09/15/19 03:54 97.9 73 13 158/73 (101) 98 09/15/19 03:40 73 09/15/19 03:00 60 12 24 09/15/19 01:05 72 12 24 09/15/19 00:00 Mechanical Ventilator 09/15/19 00:00 98.6 71 12 120/58 (78) 98 09/14/19 23:43 71 09/14/19 23:16 69 12 24 09/14/19 21:06 70 12 24 09/14/19 20:47 80 139/53 09/14/19 20:00 98.6 80 13 139/53 (81) 100 09/14/19 20:00 Mechanical Ventilator 09/14/19 20:00 79 09/14/19 20:00 24 09/14/19 19:30 80 13 24 09/14/19 17:30 72 12 24 09/14/19 16:00 Mechanical Ventilator 09/14/19 16:00 78 09/14/19 16:00 98.0 72 14 144/61 (88) 100 09/14/19 16:00 24 09/14/19 15:01 78 16 24 09/14/19 13:04 72 17 24 09/14/19 12:00 Mechanical Ventilator 09/14/19 12:00 24 09/14/19 12:00 98.2 78 14 128/55 (79) 96 09/14/19 11:42 82 09/14/19 10:57 65 12 24 Intake and Output 09/14/19 09/15/19 19:00 07:00 Intake Total 660 ml 630 ml Output Total 200 ml 3500 ml Balance 460 ml -2870 ml Free Water 60 ml 80 ml Tube Feeding 600 ml 550 ml Stool Total 200 ml 0 ml Hemodialysis UF 3500 ml Laboratory Tests 09/14/19 12:36: POC Whole Blood Glucose 160H 09/14/19 18:26: POC Whole Blood Glucose 146H 09/15/19 03:45: White Blood Count 18.5H, Red Blood Count 3.64L, Hemoglobin 9.5L, Hematocrit 32.1L, Mean Corpuscular Volume 88, Mean Corpuscular Hemoglobin 26.1L, Mean Corpuscular Hemoglobin Concent 29.6L, Red Cell Distribution Width 18.5H, Platelet Count 338, Mean Platelet Volume 6.3L, Neutrophils (%) (Auto) , Lymphocytes (%) (Auto) , Monocytes (%) (Auto) , Eosinophils (%) (Auto) , Basophils (%) (Auto) , Differential Total Cells Counted 100, Neutrophils % ( Manual) 63, Lymphocytes % (Manual) 20, Monocytes % (Manual) 9, Eosinophils % ( Manual) 7H, Basophils % (Manual) 1, Band Neutrophils 0, Platelet Estimate Adequate, Platelet Morphology Normal, Hypochromasia 2+, Anisocytosis 2+ Height (Feet): 5 Height (Inches): 10.00 Weight (Pounds): 155 Objective CV RR Trach clean Lungs CTA New Perma Cath RIJ. Old Femoral [place] still in Rt. Groin! Abd SNT. BS + E No CCE Erica Pichardo MD Sep 15, 2019 10:02
--- NOTE | 2019-09-15 10:22 | NUR ---
Clubhouse Manager: Called [facility] and spoke with Bertin. Scheduled hemodialysis for tomorrow, 09/16/2019, per Dr. Pichardo's orders. Bertin acknowledged and informed this nurse that hemodialysis nurse will be notified.
--- NOTE | 2019-09-15 10:47 | NUR ---
CASE MANAGEMENT: REVIEW 09/14/19 SI: PNA . ESRD on HD . CHRONIC LEUKOCYTOSIS 97.4 78 14 155/69 100% MECH VENT FIO2 24 WBC 18.3 H/H 8.6/28.7 CO2 33 BUN/CREAT 61/3.5 BG 160 LDH 270 ALB 1.8 IS: EPOETIN SUBQ QMWF HEPARIN IV X1 LOPRESSOR GT BID LONITEN GT QD HD NEEDED \: 2W STEP DOWN UNIT DCP: PATIENT HAS BEEN ACCEPTED TO [facility] SUBACUTE PLAN: HD TODAY CASE MANAGEMENT: REVIEW 09/15/19 SI: PNA . ESRD on HD . CHRONIC LEUKOCYTOSIS 98.1 71 14 132/58 96% MECH VENT FIO2 24 WBC 18.5 H/H 9.5/32.1 IS: EPOETIN SUBQ QMWF LOPRESSOR GT BID LONITEN GT QD HD NEEDED \: 2W STEP DOWN UNIT DCP: PATIENT HAS BEEN ACCEPTED TO [facility] SUBACUTE PLAN: WBC INCREASING CONSULT WITH ID HD IN AM
--- NOTE | 2019-09-15 10:53 | NUR ---
INSURANCE UPDATED CLINICALS/REVIEW FAXED TO [facility] / [employer] REF# [id number] RIC:HARPER P:[phone] F:[phone]
[2019-09-15 12:00] VITALS: BP 102/44
--- NOTE | 2019-09-15 12:00 | Hematology/Onc Progress Note ---
Assessment/Plan Assessment/Plan Assessment/recs # Leukocytosis - with multiple infections, VRE UTI, flow is negative --> wbc trend 33-->28-->25->23->22->23->24->17.3-->17-->14->16-->15.6-->14-->14- >13->19->18->17->22->22->19->17 --> on abx, linezolid and zosyn--> zosyn-->gent-->off --> + blood cultures with coag neg staph likely contaminated --> as per id recs --> has ordered a flow cytometry (with pathology) --> does show increased nK cell activity --> JOURDAN 2 and bcr-abl labs ordered (these are send outs) --> plt 585-->613-->649-->669->663 # Anemia due to chronic disease/kidney disease as well, gi bleed + occult + noted --> was on iron in the past, now on hold --> has been started on Epogen sq --> as per renal care --> egd done and shows gastritis --> on ppi --> egd showed gastritis, colo recently done --> hgb 9-->8.7-->7.6-->9.2-->8.9-->9.2->9.3-->8.8->9.9-->9.2-->8.1-->8.7-->7.9- ->8.6 # Respiratory failure --> per pulm, s/p trach --> COVID 19 test negative x 2 # Dysphagia s/p gtube with nepro --> per gi # ESRD with r fem julito --> hd as per renal # Dvt ppx scds Appreciate consultation and dw Rn Subjective Constitutional: Denies: no symptoms, chills, fever, malaise, weakness, other HEENT: Denies: no symptoms, eye pain, blurred vision, tearing, double vision, ear pain, ear discharge, nose pain, nose congestion, throat pain, throat swelling, mouth pain, mouth swelling, other Respiratory: Denies: no symptoms, cough, shortness of breath, SOB with excertion, SOB at rest, sputum, wheezing, other Gastrointestinal/Abdominal: Denies: no symptoms, abdomen distended, abdominal pain, black stools, tarry stools, blood in stool, constipated, diarrhea, difficulty swallowing, nausea, poor appetite, poor fluid intake, rectal bleeding , vomiting, other Neurologic/Psychiatric: Denies: no symptoms, anxiety, depressed, emotional problems, headache, numbness, paresthesia, pre-existing deficit, seizure, tingling, tremors, weakness, other Endocrine: Denies: no symptoms, excessive sweating, flushing, intolerance to cold, intolerance to heat, increased hunger, increased thirst, increased urine, unexplained weight gain, unexplained weight loss, other Allergies: Coded Allergies: No Known Allergies (Unverified , 06/10/19) Subjective 08/15 meds noted, no bleeding, hgb 8.8, wbc 28, path flow pending 08/16 flow pending dw pathologist, results pending, wbc 25, hgb 9 08/17 labs reviewed, meds reviewed, meds noted, no night sweats 08/19 remains obtunded, on vent/trach, no bleeding wbc 21.7 08/20 labs have been reviewed, no bleeding, wbc still elev, path reviewed 08/21 labs are noted, no bleeding, on vent, wbc better 08/22 labs noted, no bleeding, meds reviewed, wbc 24 hgb 7.6 08/23 vent, off abx, c diff negative, h/h stable 08/24 labs reviewed, on abx, wbc 17, hgb 8.9, no hemolysis 08/26 reviewed flow and is negative for leukemia, matt rn 08/27 meds reviewed, no night sweats, matt rn, no major bleeding 08/28 meds reivewed, labs noted 08/29 wbc is stable, approx 15, hgb 8.8, no hemolysis 08/30 labs are noted, is for colo today, hgb 9.9 08/31 right fem julito in place, unchanged, hgb 9.2, gi aware 09/01 labs noted, hgb 8.8, plt >600, no bleeding 09/02 labs noted, no bleeding, with elev wbc still, no new changes 09/03 meds are noted, no bleeding, labs reviewed hgb 8.6 09/04 no major events, hd as per renal, abx, no bleeding hgb low 09/05 labs are noted, no bleeding, meds have been reviewed 09/06 no new labs no hemolysis, cbc is noted, no bleeding 09/07 meds reviewed, no bleeding, matt rn, permacat functioning well 09/09 meds reviewed, wbc still elevated, as per id recs, cbc noted 09/10 is obtunded, with gutbe in place, labs reviewed 09/11 obtunded, as per id, observe now off abx, labs noted, wbc 19 09/12 cbc is pending, remains on epogen, also off abx 09/13 labs reviewed, no bleeding, elev wbc, no night sweats 09/14 meds noted, no bleeding, wbc 19, hgb 9.5, no night sweats Objective Objective Current Medications Medications (Trade) Dose Ordered Sig/Leonel Route PRN Reason Start Time Stop Time Status Last Admin Dose Admin Acetaminophen (Tylenol) 650 mg Q4H PRN GT Mild Pain (Pain Scale 1-3) 09/09/19 00:45 10/09/19 00:44 09/09/19 00:44 Atorvastatin Calcium (Lipitor) 40 mg BEDTIME GT 08/09/19 21:00 11/07/19 20:59 09/14/19 20:47 Chlorhexidine Gluconate (Felipa-Hex 2%) 1 applic DAILY@2000 TOPIC 09/12/19 20:00 12/11/19 19:59 09/14/19 20:46 Clonidine HCl (Catapres Tab) 0.1 mg Q4H PRN GT For High Blood Pressure 09/09/19 12:30 12/08/19 05:29 09/15/19 04:10 Dextrose (Dextrose 50%) 25 ml Q30M PRN IV Hypoglycemia 08/09/19 07:30 11/07/19 07:29 Dextrose (Dextrose 50%) 50 ml Q30M PRN IV Hypoglycemia 08/09/19 07:30 11/07/19 07:29 Epoetin Andreas (Epoetin Andreas(ESRD on dialysis)) 10,000 unit WED-WED-WED SUBQ 08/18/19 21:00 11/16/19 20:59 09/13/19 21:39 Famotidine (Pepcid) 20 mg DAILY GT 08/30/19 09:00 11/28/19 08:59 09/15/19 08:04 Heparin Sodium (Porcine) (Heparin Sod 1000 units/ml 10ml) 2,000 unit ONCE PRN IV HD 09/16/19 06:00 09/16/19 23:59 Heparin Sodium (Porcine) (Heparin) 1,000 unit POSTHD INJ 09/14/19 09:30 10/29/19 09:29 Heparin Sodium (Porcine) (Heparin) 1,000 unit POSTHD PRN INJ POST HD 09/16/19 06:00 09/16/19 23:59 Insulin Aspart (NovoLOG) Q6HR SUBQ 08/10/19 00:00 11/07/19 11:29 09/15/19 05:25 Lactobacillus Acidophilus (Culturelle) 1 tab TWICE A DAY GT 09/14/19 18:00 12/13/19 17:59 09/15/19 08:04 Metoprolol Tartrate (Lopressor) 200 mg Q12HR GT 08/09/19 09:00 11/07/19 08:59 09/15/19 08:04 Minoxidil (Loniten) 5 mg DAILY GT 08/09/19 09:00 11/07/19 08:59 09/15/19 08:03 Sodium Chloride 1,000 ml @ 500 mls/hr Q2H PRN IVLG sbp<90 during hd 09/14/19 09:26 10/14/19 09:25 Sodium Chloride 1,000 ml @ 500 mls/hr Q2H PRN IVLG sbp<90 during hd 09/16/19 06:00 09/16/19 23:59 Zinc Oxide (Zinc Oxide) 1 applic BID TOPIC 08/10/19 18:00 11/08/19 17:59 09/15/19 08:04 Last 24 Hour Vital Signs Date Time Temp Pulse Resp B/P (MAP) Pulse Ox O2 Delivery O2 Flow Rate FiO2 09/15/19 11:06 69 12 24 09/15/19 08:49 68 12 24 09/15/19 08:04 71 132/58 09/15/19 08:03 132/58 09/15/19 08:00 Mechanical Ventilator 09/15/19 08:00 24 09/15/19 08:00 71 09/15/19 07:51 98.1 71 14 132/58 (82) 96 09/15/19 06:53 72 12 24 09/15/19 04:55 73 12 24 09/15/19 04:10 165/76 09/15/19 04:00 Mechanical Ventilator 09/15/19 04:00 24 09/15/19 03:54 97.9 73 13 158/73 (101) 98 09/15/19 03:40 73 09/15/19 03:00 60 12 24 09/15/19 01:05 72 12 24 09/15/19 00:00 Mechanical Ventilator 09/15/19 00:00 98.6 71 12 120/58 (78) 98 09/14/19 23:43 71 09/14/19 23:16 69 12 24 09/14/19 21:06 70 12 24 09/14/19 20:47 80 139/53 09/14/19 20:00 98.6 80 13 139/53 (81) 100 09/14/19 20:00 Mechanical Ventilator 09/14/19 20:00 79 09/14/19 20:00 24 09/14/19 19:30 80 13 24 09/14/19 17:30 72 12 24 09/14/19 16:00 Mechanical Ventilator 09/14/19 16:00 78 09/14/19 16:00 98.0 72 14 144/61 (88) 100 09/14/19 16:00 24 09/14/19 15:01 78 16 24 09/14/19 13:04 72 17 24 09/14/19 12:00 Mechanical Ventilator 09/14/19 12:00 24 09/14/19 12:00 98.2 78 14 128/55 (79) 96 09/14/19 11:42 82 09/14/19 10:57 65 12 24 09/14/19 09:22 76 13 24 09/14/19 08:55 73 155/60 09/14/19 08:55 155/60 09/14/19 08:00 70 09/14/19 08:00 Mechanical Ventilator 09/14/19 08:00 97.4 78 14 155/69 (97) 100 09/14/19 08:00 24 09/14/19 07:06 73 13 24 09/14/19 05:35 71 22 24 8/6/20 04:00 98.0 73 14 155/60 (91) 100 09/14/19 04:00 Mechanical Ventilator 09/14/19 04:00 24 09/14/19 03:47 66 12 24 09/14/19 03:36 65 09/14/19 01:49 67 12 24 09/14/19 00:00 97.8 70 12 145/78 (100) 100 09/14/19 00:00 Mechanical Ventilator 09/13/19 23:31 65 12 24 09/13/19 23:29 68 09/13/19 21:40 67 15 24 09/13/19 20:44 69 133/60 09/13/19 20:00 98.1 69 13 133/60 (84) 99 09/13/19 20:00 Mechanical Ventilator 09/13/19 20:00 24 09/13/19 19:57 70 12 24 09/13/19 19:07 69 09/13/19 16:55 70 12 24 09/13/19 16:00 Mechanical Ventilator 09/13/19 16:00 98.2 71 13 125/51 (75) 99 09/13/19 16:00 24 09/13/19 15:15 69 09/13/19 15:01 75 12 24 09/13/19 12:51 76 12 24 09/13/19 12:10 70 Intake and Output 09/14/19 09/15/19 19:00 07:00 Intake Total 660 ml 630 ml Output Total 200 ml 3500 ml Balance 460 ml -2870 ml Free Water 60 ml 80 ml Tube Feeding 600 ml 550 ml Stool Total 200 ml 0 ml Hemodialysis UF 3500 ml Labs Test 09/12/19 12:27 09/12/19 16:51 09/13/19 00:37 09/13/19 05:52 POC Whole Blood Glucose 131 MG/DL (74-106) 142 MG/DL (74-106) 155 MG/DL (74-106) 145 MG/DL (74-106) Test 09/13/19 11:15 09/13/19 11:31 09/13/19 17:47 09/13/19 23:07 White Blood Count 17.2 K/UL (4.8-10.8) Red Blood Count 3.11 M/UL (4.70-6.10) Hemoglobin 8.0 G/DL (14.2-18.0) Hematocrit 27.1 % (42.0-52.0) Mean Corpuscular Volume 87 FL (80-99) Mean Corpuscular Hemoglobin 25.6 PG (27.0-31.0) Mean Corpuscular Hemoglobin Concent 29.5 G/DL (32.0-36.0) Red Cell Distribution Width 19.1 % (11.6-14.8) Platelet Count 327 K/UL (150-450) Mean Platelet Volume 5.6 FL (6.5-10.1) Neutrophils (%) (Auto) 69.5 % (45.0-75.0) Lymphocytes (%) (Auto) 14.4 % (20.0-45.0) Monocytes (%) (Auto) 7.2 % (1.0-10.0) Eosinophils (%) (Auto) 8.0 % (0.0-3.0) Basophils (%) (Auto) 0.9 % (0.0-2.0) Sodium Level 140 MMOL/L (136-145) Potassium Level 4.2 MMOL/L (3.5-5.1) Chloride Level 102 MMOL/L (98-107) Carbon Dioxide Level 34 MMOL/L (21-32) Anion Gap 4 mmol/L (5-15) Blood Urea Nitrogen 46 mg/dL (7-18) Creatinine 2.9 MG/DL (0.55-1.30) Estimat Glomerular Filtration Rate 21.2 mL/min (>60) Glucose Level 143 MG/DL (74-106) Calcium Level 8.5 MG/DL (8.5-10.1) POC Whole Blood Glucose 141 MG/DL (74-106) 148 MG/DL (74-106) Test 09/14/19 03:20 09/14/19 05:33 09/14/19 08:40 09/14/19 12:36 White Blood Count 18.3 K/UL (4.8-10.8) 17.6 K/UL (4.8-10.8) Red Blood Count 3.32 M/UL (4.70-6.10) 3.40 M/UL (4.70-6.10) Hemoglobin 8.6 G/DL (14.2-18.0) 8.7 G/DL (14.2-18.0) Hematocrit 28.7 % (42.0-52.0) 29.3 % (42.0-52.0) Mean Corpuscular Volume 86 FL (80-99) 86 FL (80-99) Mean Corpuscular Hemoglobin 26.0 PG (27.0-31.0) 25.6 PG (27.0-31.0) Mean Corpuscular Hemoglobin Concent 30.1 G/DL (32.0-36.0) 29.6 G/DL (32.0-36.0) Red Cell Distribution Width 18.5 % (11.6-14.8) 18.5 % (11.6-14.8) Platelet Count 351 K/UL (150-450) 364 K/UL (150-450) Mean Platelet Volume 6.5 FL (6.5-10.1) 6.5 FL (6.5-10.1) Neutrophils (%) (Auto) % (45.0-75.0) 65.8 % (45.0-75.0) Lymphocytes (%) (Auto) % (20.0-45.0) 13.9 % (20.0-45.0) Monocytes (%) (Auto) % (1.0-10.0) 8.5 % (1.0-10.0) Eosinophils (%) (Auto) % (0.0-3.0) 10.8 % (0.0-3.0) Basophils (%) (Auto) % (0.0-2.0) 1.0 % (0.0-2.0) Differential Total Cells Counted 100 Neutrophils % (Manual) 65 % (45-75) Lymphocytes % (Manual) 18 % (20-45) Monocytes % (Manual) 8 % (1-10) Eosinophils % (Manual) 7 % (0-3) Basophils % (Manual) 2 % (0-2) Band Neutrophils 0 % (0-8) Platelet Estimate Adequate Platelet Morphology Normal Hypochromasia 2+ Anisocytosis 2+ Sodium Level 139 MMOL/L (136-145) Potassium Level 4.6 MMOL/L (3.5-5.1) Chloride Level 100 MMOL/L (98-107) Carbon Dioxide Level 33 MMOL/L (21-32) Anion Gap 6 mmol/L (5-15) Blood Urea Nitrogen 61 mg/dL (7-18) Creatinine 3.5 MG/DL (0.55-1.30) Estimat Glomerular Filtration Rate 17.0 mL/min (>60) Glucose Level 124 MG/DL (74-106) Calcium Level 9.0 MG/DL (8.5-10.1) Total Bilirubin 0.3 MG/DL (0.2-1.0) Aspartate Amino Transf (AST/SGOT) 46 U/L (15-37) Alanine Aminotransferase (ALT/SGPT) 28 U/L (12-78) Alkaline Phosphatase 270 U/L (46-116) Total Protein 8.1 G/DL (6.4-8.2) Albumin 1.8 G/DL (3.4-5.0) Globulin 6.3 g/dL Albumin/Globulin Ratio 0.3 (1.0-2.7) POC Whole Blood Glucose 160 MG/DL (74-106) Test 09/14/19 18:26 09/15/19 03:45 09/15/19 11:38 POC Whole Blood Glucose 146 MG/DL (74-106) 140 MG/DL (74-106) White Blood Count 18.5 K/UL (4.8-10.8) Red Blood Count 3.64 M/UL (4.70-6.10) Hemoglobin 9.5 G/DL (14.2-18.0) Hematocrit 32.1 % (42.0-52.0) Mean Corpuscular Volume 88 FL (80-99) Mean Corpuscular Hemoglobin 26.1 PG (27.0-31.0) Mean Corpuscular Hemoglobin Concent 29.6 G/DL (32.0-36.0) Red Cell Distribution Width 18.5 % (11.6-14.8) Platelet Count 338 K/UL (150-450) Mean Platelet Volume 6.3 FL (6.5-10.1) Neutrophils (%) (Auto) % (45.0-75.0) Lymphocytes (%) (Auto) % (20.0-45.0) Monocytes (%) (Auto) % (1.0-10.0) Eosinophils (%) (Auto) % (0.0-3.0) Basophils (%) (Auto) % (0.0-2.0) Differential Total Cells Counted 100 Neutrophils % (Manual) 63 % (45-75) Lymphocytes % (Manual) 20 % (20-45) Monocytes % (Manual) 9 % (1-10) Eosinophils % (Manual) 7 % (0-3) Basophils % (Manual) 1 % (0-2) Band Neutrophils 0 % (0-8) Platelet Estimate Adequate Platelet Morphology Normal Hypochromasia 2+ Anisocytosis 2+ Height (Feet): 5 Height (Inches): 10.00 Weight (Pounds): 155 Objective Physical Exam General Appearance: nad, Chronically Ill Head: normocephalic Eyes: right eye PERRL - Will not open left eye ENT: moist mucus membranes Neck: other - submandibular mass R, fairly rigid with resistance to rotation to L, tracheotomy Respiratory: decreased breath sounds, crackles, other - pacemaker, vent+ Cardiovascular: regular rate, rhythm, edema - anasarca Gastrointestinal: non tender, distended, other - G tube Genitourinary: other Musculoskeletal: other - Contractures all extremities Neurologic: sensory intact, motor weakness, responsive Psychiatric: other Skin: Decubitus/Ulcer - Stage III right elbow, stage III left elbow, stage II sacrum, stage III scrotum, warm/dry Fitz Campos MD Sep 15, 2019 12:00
--- NOTE | 2019-09-15 12:40 | Surgery Progress Note ---
Surgery Progress Note Subjective Procedure Performed Right femoral temporary hemodialysis catheter removal Additional Comments resting comfortable exam stable non/v/ Objective Last 24 Hour Vital Signs Date Time Temp Pulse Resp B/P (MAP) Pulse Ox O2 Delivery O2 Flow Rate FiO2 09/15/19 12:00 70 09/15/19 12:00 24 09/15/19 12:00 99.0 71 14 102/44 (63) 98 09/15/19 12:00 Mechanical Ventilator 09/15/19 11:06 69 12 24 09/15/19 08:49 68 12 24 09/15/19 08:04 71 132/58 09/15/19 08:03 132/58 09/15/19 08:00 Mechanical Ventilator 09/15/19 08:00 24 09/15/19 08:00 71 09/15/19 07:51 98.1 71 14 132/58 (82) 96 09/15/19 06:53 72 12 24 09/15/19 04:55 73 12 24 09/15/19 04:10 165/76 09/15/19 04:00 Mechanical Ventilator 09/15/19 04:00 24 09/15/19 03:54 97.9 73 13 158/73 (101) 98 09/15/19 03:40 73 09/15/19 03:00 60 12 24 09/15/19 01:05 72 12 24 09/15/19 00:00 Mechanical Ventilator 09/15/19 00:00 98.6 71 12 120/58 (78) 98 09/14/19 23:43 71 09/14/19 23:16 69 12 24 09/14/19 21:06 70 12 24 09/14/19 20:47 80 139/53 09/14/19 20:00 98.6 80 13 139/53 (81) 100 09/14/19 20:00 Mechanical Ventilator 09/14/19 20:00 79 09/14/19 20:00 24 09/14/19 19:30 80 13 24 09/14/19 17:30 72 12 24 09/14/19 16:00 Mechanical Ventilator 09/14/19 16:00 78 09/14/19 16:00 98.0 72 14 144/61 (88) 100 09/14/19 16:00 24 09/14/19 15:01 78 16 24 09/14/19 13:04 72 17 24 I&O Intake and Output 09/14/19 09/15/19 19:00 07:00 Intake Total 660 ml 630 ml Output Total 200 ml 3500 ml Balance 460 ml -2870 ml Free Water 60 ml 80 ml Tube Feeding 600 ml 550 ml Stool Total 200 ml 0 ml Hemodialysis UF 3500 ml Dressing: saturated Cardiovascular: RSR Respiratory: decreased breath sounds Abdomen: soft, non-tender, present bowel sounds Extremities: no cyanosis Laboratory Tests Test 09/14/19 18:26 09/15/19 03:45 09/15/19 11:38 POC Whole Blood Glucose 146 MG/DL (74-106) H 140 MG/DL (74-106) H White Blood Count 18.5 K/UL (4.8-10.8) H Red Blood Count 3.64 M/UL (4.70-6.10) L Hemoglobin 9.5 G/DL (14.2-18.0) L Hematocrit 32.1 % (42.0-52.0) L Mean Corpuscular Volume 88 FL (80-99) Mean Corpuscular Hemoglobin 26.1 PG (27.0-31.0) L Mean Corpuscular Hemoglobin Concent 29.6 G/DL (32.0-36.0) L Red Cell Distribution Width 18.5 % (11.6-14.8) H Platelet Count 338 K/UL (150-450) Mean Platelet Volume 6.3 FL (6.5-10.1) L Neutrophils (%) (Auto) % (45.0-75.0) Lymphocytes (%) (Auto) % (20.0-45.0) Monocytes (%) (Auto) % (1.0-10.0) Eosinophils (%) (Auto) % (0.0-3.0) Basophils (%) (Auto) % (0.0-2.0) Differential Total Cells Counted 100 Neutrophils % (Manual) 63 % (45-75) Lymphocytes % (Manual) 20 % (20-45) Monocytes % (Manual) 9 % (1-10) Eosinophils % (Manual) 7 % (0-3) H Basophils % (Manual) 1 % (0-2) Band Neutrophils 0 % (0-8) Platelet Estimate Adequate Platelet Morphology Normal Hypochromasia 2+ Anisocytosis 2+ Plan Problems: (1) Anemia (2) Hyponatremia (3) Leukocytosis Assessment & Plan: Tracheostomy, left chest pacemaker are again demonstrated. There is bilateral interstitial and airspace disease and bilateral pleural fluid again demonstrated. This appears more severe than on the prior study. Bilateral interstitial and airspace infiltrates versus edema. Bilateral pleural effusions Leukocytosis, anemia, tachycardia, abnormal labs. Wound evaluated and likely etiology of patient's sepsis. Leukocytosis etiology work-up antibiotics per infectious disease Appreciate nephrology input transfuse with dialysis We will follow with recommendations thank you allowing participation's care plan HD access temp HD discussed with medical teams line okay HD as per renal persistent leukocytosis flow cyto noted improving trending down right fem line removed (4) Ventilator dependent (5) Right lower lobe pneumonia (6) Hypokalemia (7) Hyperkalemia (8) Anasarca (9) Decubitus skin ulcer Assessment & Plan: pt presented on admission with generalized edemae.Skin assessed under tracheostomy and no areas of concerns noted. GT Insertion is marginally erythematous with small amt slough at stoma. Unstageable Pressure Injury R elbow. Base of wound is 100% yellow slough, Borders are erythematous. Wound oozing small amt haemopurulent exudate.Darker skin tone without elevation in skin temp or erythema periwound. Pt's penis and scrotum are grossly edematous and enlarged and weeping serous exudate from numerous sites both from penis and scrotum. Two small open wounds noted at base of at base of shaft of penis ,and contreras aspect of scrotum. Both wounds oozing large amt sanguineous and serosanguineous exudate. Multiple open wounds with Biofilm at base of each wounds noted to contreras/lateral,inferior and posterior aspects of scrotum. These wounds noted to be oozing moderate amts of serosanguineous exudate. Hypertrophic scar with scattered areas of hyperpigmentation noted to Sacrum. DTPI noted to L Buttocks (L)7cm x (W)9cm. Base of wound is purple and indurated.Darker skin tone without erythema, induration or fluctuance R and L ischial tuberosities. Both heels are boggy with non-blanchable erythema. Tx.Plan: Cleanse wound R elbow with Saline. Apply TheraHoney, Apply Moisture Barrier Paste periwound. Cover with Optifoam drsg.Change Daily and prn. Wash GT site with soap and water.Pat dry. Apply Zinc Oxide Paste to GT site Daily. Leave Open to Air. Apply Zinc Oxide Paste to entire Scrotum, Place ABD pads to R and L lateral, and posterior aspects of scrotum TWICE daily. Apply Cavilon Skin Barrier to malleoli and both Heels. Cover each site with Optifoam drsgs. Change every 7 days and prn. Reposition at least every 2hours or as tolerated. Off-load heels with Pillows. APM/BECCA Mattress overlay. (10) Malnutrition Assessment & Plan: DAILY ESTIMATED NEEDS: Needs based on Renal, critical care, wound/ 61kg 22-30 kcals/kg 5869-8374 total kcals 1.25-2 g protein/kg 76-122 g total protein Fluid per MD, now on HD NUTRITION DIAGNOSIS: * Swallowing difficulty R/T respiratory failure, dysphagia as evidenced by trach/vent dep, PEG dep * Increased kcal/prot needs R/T wound healing as evidenced by admitted w/ multiple pressure injuries including full thickness wounds at junction of Shaft of penis, dorsal scrotum, R elbow, and DTPI @ L buttocks. CURRENT TF:Vital AF 1.2 @ 50ml/hr x 24 hrs + Garo BID ENTERAL NUTRITION RECOMMENDATIONS: Vital AF 1.2 @ 50ml/hr x 24 hrs to provide 1200ml, 1440kcal,9 0g prot, 973ml free water * Maintain elemental TF of Vital AF 1.2 w/ continued diarrhea -> monitor lytes and renal fxn closely, monitor need for renal T -> TF @ goal will provide 1642mg K and 2025mg Phos * HOB over 30 degrees/ water flush per MD * Continue Garo BID via PEG ADDITIONAL RECOMMENDATIONS: * Per SNF: HT=63" HF=871 lbs (vs EMR wt of 166lbs) -> obtain re-calibrated bedscale wt, rec daily wt monitoring * Wound healing: con't Nephrovite + Garo BID/ Vit C dosing per Nephro * Monitor renal fxn and lytes closely w/ non-renal TF - previously w/ multiple episodes of low K and phos - Check f/up phos (1. 0on 09/04) * Add probiotics and anti-diarrheal meds - prolonged diarrhea, +rectal tube (11) Uremia (12) CKD (chronic kidney disease) stage 5, GFR less than 15 ml/min (13) Colon distention Assessment & Plan: discussed with GI likely functional as having lots of loose bm rectal tube kub f/u s/p colonoscopy - findings reviewed with GI Marked distention of the sigmoid colon. 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 No evidence of bowel wall thickening or pneumatosis 12 mm focus of contrast enhancement in the right pectineus muscle. While nonspecific in appearance, appearance raises concern for a possible pseudoaneurysm. Ill- defined thickening of the pectus medius muscle could indicate some intramuscular hemorrhage. The above findings were phoned to Dr. Urias at the time of interpretation Large bilateral pleural effusions Hazy pulmonary parenchymal opacities as well as dense consolidative opacities most likely represent pulmonary edema, but could represent pneumonia Evidence of anasarca elsewhere, with generalized edema of the subcutaneous fat Bladder wall thickening, raises concern for cystitis. Avalos catheter in place Colonic diverticulosis. No evidence of diverticulitis. Tracheostomy Pacemaker Gastrostomy Jonathan Urias Sep 15, 2019 12:40
--- NOTE | 2019-09-15 13:37 | NUR ---
DIRECTOR SURFACE TRANSPORTATION NOTES SPOKE WITH REMY FROM [facility] AND MD NOTES FAXED. WILL FOLLOW UP WITH DECISION TO ADMIT. Addendum: 09/15/19 at 1636 by ANALI POMPA RN RN SPOKE WITH REMY, PAPERWORK IS IN REVIEW WITH THE [facility] ILL CALL BACK ONCE THE PAPERWORK HAS BEEN REVIEWED. PLACED A CALL TO HARPER FROM [facility] [place] [facility] MADE AWARE OF BARRIER TO DISCHARGE, PER HARPER SHE WILL CALL REMY TO FOLLOW UP WITH ADMISSION AND MAN THIS UP TO HER COUNTER SUPERVISOR.
--- NOTE | 2019-09-15 15:14 | Infectious Diseases Prog Note ---
Assessment/Plan Assessment/Plan A: 1. Pneumonia with Klebsiella, pseudomonas & Providencia COVID19 X2 : negative 2. Renal failure, ESRD 3. Leukocytosis improving 4. Respiratory failure, Ventilator dependent 5. Anemia 6. Anasarca 7. 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 Klebsiella catheter infection s/p removal PLAN: 1. Continue Lactobacillus 2. Repeat CXR Subjective ROS Limited/Unobtainable: Yes Allergies: Coded Allergies: No Known Allergies (Unverified , 06/10/19) Objective Last 24 Hour Vital Signs Date Time Temp Pulse Resp B/P (MAP) Pulse Ox O2 Delivery O2 Flow Rate FiO2 09/15/19 14:48 74 12 24 09/15/19 12:51 71 12 24 09/15/19 12:00 70 09/15/19 12:00 24 09/15/19 12:00 99.0 71 14 102/44 (63) 98 09/15/19 12:00 Mechanical Ventilator 09/15/19 11:06 69 12 24 09/15/19 08:49 68 12 24 09/15/19 08:04 71 132/58 09/15/19 08:03 132/58 09/15/19 08:00 Mechanical Ventilator 09/15/19 08:00 24 09/15/19 08:00 71 09/15/19 07:51 98.1 71 14 132/58 (82) 96 09/15/19 06:53 72 12 24 09/15/19 04:55 73 12 09/15/19 04:10 165/76 09/15/19 04:00 Mechanical Ventilator 09/15/19 04:00 24 09/15/19 03:54 97.9 73 13 158/73 (101) 98 09/15/19 03:40 73 09/15/19 03:00 60 12 24 09/15/19 01:05 72 12 24 09/15/19 00:00 Mechanical Ventilator 09/15/19 00:00 98.6 71 12 120/58 (78) 98 09/14/19 23:43 71 09/14/19 23:16 69 12 24 09/14/19 21:06 70 12 24 09/14/19 20:47 80 139/53 09/14/19 20:00 98.6 80 13 139/53 (81) 100 09/14/19 20:00 Mechanical Ventilator 09/14/19 20:00 79 09/14/19 20:00 24 09/14/19 19:30 80 13 24 09/14/19 17:30 72 12 24 09/14/19 16:00 Mechanical Ventilator 09/14/19 16:00 78 09/14/19 16:00 98.0 72 14 144/61 (88) 100 09/14/19 16:00 24 Height (Feet): 5 Height (Inches): 10.00 Weight (Pounds): 155 HEENT: status post trach Respiratory/Chest: rhonchi - bilaterally, other - on vetilator Cardiovascular: normal rate Abdomen: soft, non tender, other - GT & rectal tubes Extremities: no edema Neurologic/Psychiatric: aphasia Laboratory Tests Test 09/14/19 18:26 09/15/19 03:45 09/15/19 11:38 POC Whole Blood Glucose 146 MG/DL (74-106) H 140 MG/DL (74-106) H White Blood Count 18.5 K/UL (4.8-10.8) H Red Blood Count 3.64 M/UL (4.70-6.10) L Hemoglobin 9.5 G/DL (14.2-18.0) L Hematocrit 32.1 % (42.0-52.0) L Mean Corpuscular Volume 88 FL (80-99) Mean Corpuscular Hemoglobin 26.1 PG (27.0-31.0) L Mean Corpuscular Hemoglobin Concent 29.6 G/DL (32.0-36.0) L Red Cell Distribution Width 18.5 % (11.6-14.8) H Platelet Count 338 K/UL (150-450) Mean Platelet Volume 6.3 FL (6.5-10.1) L Neutrophils (%) (Auto) % (45.0-75.0) Lymphocytes (%) (Auto) % (20.0-45.0) Monocytes (%) (Auto) % (1.0-10.0) Eosinophils (%) (Auto) % (0.0-3.0) Basophils (%) (Auto) % (0.0-2.0) Differential Total Cells Counted 100 Neutrophils % (Manual) 63 % (45-75) Lymphocytes % (Manual) 20 % (20-45) Monocytes % (Manual) 9 % (1-10) Eosinophils % (Manual) 7 % (0-3) H Basophils % (Manual) 1 % (0-2) Band Neutrophils 0 % (0-8) Platelet Estimate Adequate Platelet Morphology Normal Hypochromasia 2+ Anisocytosis 2+ Current Medications Medications (Trade) Dose Ordered Sig/Leonel Route PRN Reason Start Time Stop Time Status Last Admin Dose Admin Acetaminophen (Tylenol) 650 mg Q4H PRN GT Mild Pain (Pain Scale 1-3) 09/09/19 00:45 10/09/19 00:44 09/09/19 00:44 Atorvastatin Calcium (Lipitor) 40 mg BEDTIME GT 08/09/19 21:00 11/07/19 20:59 09/14/19 20:47 Chlorhexidine Gluconate (Felipa-Hex 2%) 1 applic DAILY@1999 TOPIC 09/12/19 20:00 12/11/19 19:59 09/14/19 20:46 Clonidine HCl (Catapres Tab) 0.1 mg Q4H PRN GT For High Blood Pressure 09/09/19 12:30 12/08/19 05:29 09/15/19 04:10 Dextrose (Dextrose 50%) 25 ml Q30M PRN IV Hypoglycemia 08/09/19 07:30 11/07/19 07:29 Dextrose (Dextrose 50%) 50 ml Q30M PRN IV Hypoglycemia 08/09/19 07:30 11/07/19 07:29 Epoetin Andreas (Epoetin Andreas(ESRD on dialysis)) 10,000 unit WED-WED-WED SUBQ 08/18/19 21:00 11/16/19 20:59 09/13/19 21:39 Famotidine (Pepcid) 20 mg DAILY GT 08/30/19 09:00 11/28/19 08:59 09/15/19 08:04 Heparin Sodium (Porcine) (Heparin Sod 1000 units/ml 10ml) 2,000 unit ONCE PRN IV HD 09/16/19 06:00 09/16/19 23:59 Heparin Sodium (Porcine) (Heparin) 1,000 unit POSTHD INJ 09/14/19 09:30 10/29/19 09:29 Heparin Sodium (Porcine) (Heparin) 1,000 unit POSTHD PRN INJ POST HD 09/16/19 06:00 09/16/19 23:59 Insulin Aspart (NovoLOG) Q6HR SUBQ 08/10/19 00:00 11/07/19 11:29 09/15/19 12:02 Lactobacillus Acidophilus (Culturelle) 1 tab TWICE A DAY GT 09/14/19 18:00 12/13/19 17:59 09/15/19 08:04 Metoprolol Tartrate (Lopressor) 200 mg Q12HR GT 08/09/19 09:00 11/07/19 08:59 09/15/19 08:04 Minoxidil (Loniten) 5 mg DAILY GT 08/09/19 09:00 11/07/19 08:59 09/15/19 08:03 Sodium Chloride 1,000 ml @ 500 mls/hr Q2H PRN IVLG sbp<90 during hd 09/14/19 09:26 10/14/19 09:25 Sodium Chloride 1,000 ml @ 500 mls/hr Q2H PRN IVLG sbp<90 during hd 09/16/19 06:00 09/16/19 23:59 Zinc Oxide (Zinc Oxide) 1 applic BID TOPIC 08/10/19 18:00 11/08/19 17:59 09/15/19 08:04 Real De Leon MD Sep 15, 2019 15:14
--- NOTE | 2019-09-15 15:16 | NUR ---
NURSE NOTES: Dr. Tri De Leon at nurse station, made aware that patient's WBC went up to 18.5 today from 17.6 yesterday, patient had temperature of 99.3 F axillary and is now 98.4 F axillary per cooling measures, informed Dr. Tri De Leon that patient is off antibiotics at this time per Dr. Lyle to observe off antibiotics at this time. Dr. Tri De Leon acknowledged and ordered chest x-ray for tomorrow morning. Will continue to monitor patient.
[2019-09-15 16:00] VITALS: BP 109/47
--- NOTE | 2019-09-15 19:24 | NUR ---
NURSE NOTES: Received pt. from Srinivas Rn, pt. in bed with eyes open- obtunded, non-verbal- not able to make needs known, no signs of symptoms of acute cardiac or respiratory distress noted, bed alarm on, side rails up x's3 and safety brakes engaged, call light within easy reach, bed locked in position, pt. appears to be tolerating current vent settings well- AC 12, TV 550, Fio2 @24% and peep 5, No signs or symptoms of acute cardiac or respiratory distress noted, G tube to upper and quadrant- patent and intact- dressing changed- running Vital AF 1.2 at 50cc/hr- no residual noted, patients skin appears very dry- generalized edema, bilateral hands 3+ pitting edema and bilateral lower legs appears to be 2+ pitting edema, scrotum/ penile area appears to be swollen, rectal tube patent and draining to gravity, left hand 22G IV intact and patent-SL, will continue to monitor pt. and with plan of care.
--- NOTE | 2019-09-15 19:25 | NUR ---
NURSE HAND-OFF REPORT: Important Events on Shift: None Patient Status: Stable Diet: Vital AF 1.2 50 ml/hr x 24 hrs. Pending Orders: None. Pending Results/Labs:None. Pending MD notification:None. Latest Vital Signs: Temperature 98.2 , Pulse 72 , B/P 109 /47 , Respiratory Rate 12 , O2 SAT 100 , Mechanical Ventilator, O2 Flow Rate 15.0 . Vital Sign Comment: None. EKG Rhythm: V-Paced Rhythm change?: N MD Notified?: - MD Response: Latest Delacruz Fall Score: 70 Fall Risk: High Risk Safety Measures: Call light Within Reach, Bed Alarm Zone 2, Side Rails Side Rails x2, Bed position Low and Locked. Fall Precautions: Yellow Socks Yellow Gown Door Sign Patient Fall Education Report given to TAMICA Atkinson.
[2019-09-15 20:00] VITALS: BP 138/60
[2019-09-15] MEDS: Epoetin Alfa-EPBX(ESRD on dialysis)10,000 unit/ml vial SUBQ SCH (20:03)
[2019-09-15] MEDS: Dyna-Hex 2% Top Sol 2oz TOPIC SCH (20:03)
[2019-09-15] MEDS: Atorvastatin 20mg tab GT SCH (20:04)
[2019-09-15] MEDS: Acetaminophen 650mg/20.3ml GT PRN (20:09)
--- NOTE | 2019-09-15 21:40 | General Progress Note ---
Assessment/Plan Assessment/Plan: Assessment - colonoscopy negative to hepatic flexure - diarrhea - presumed TF related - abnormal LFT - Anemia - leukocytosis - stool OB (+) - EGD --> gastritis - Renal failure - Anasarca - resp failure, trach - dysphagia, GT - encephalopathy, contracted - poor px Recommendations - Continue TF - Elevate HOB - f/u labs - PPI - abx - supportive care - I will return Mon to see pt Subjective Allergies: Coded Allergies: No Known Allergies (Unverified , 06/10/19) Subjective Above noted no events tolerating TF Objective Last 24 Hour Vital Signs Date Time Temp Pulse Resp B/P (MAP) Pulse Ox O2 Delivery O2 Flow Rate FiO2 09/15/19 21:11 68 12 24 09/15/19 20:39 98.9 09/15/19 20:04 72 138/60 09/15/19 20:00 24 09/15/19 20:00 Mechanical Ventilator 09/15/19 20:00 99.6 72 16 138/60 (86) 99 09/15/19 19:23 72 09/15/19 19:03 72 12 09/15/19 16:59 72 12 24 09/15/19 16:00 Mechanical Ventilator 09/15/19 16:00 98.2 69 14 109/47 (67) 100 09/15/19 16:00 71 09/15/19 16:00 24 09/15/19 14:48 74 12 09/15/19 12:51 71 12 09/15/19 12:00 70 09/15/19 12:00 24 09/15/19 12:00 99.0 71 14 102/44 (63) 98 09/15/19 12:00 Mechanical Ventilator 09/15/19 11:06 69 12 09/15/19 08:49 68 12 24 09/15/19 08:04 71 132/58 09/15/19 08:03 132/58 09/15/19 08:00 Mechanical Ventilator 09/15/19 08:00 24 09/15/19 08:00 71 09/15/19 07:51 98.1 71 14 132/58 (82) 96 09/15/19 06:53 72 12 09/15/19 04:55 73 12 09/15/19 04:10 165/76 09/15/19 04:00 Mechanical Ventilator 09/15/19 04:00 24 09/15/19 03:54 97.9 73 13 158/73 (101) 98 09/15/19 03:40 73 09/15/19 03:00 60 12 24 09/15/19 01:05 72 12 24 09/15/19 00:00 Mechanical Ventilator 09/15/19 00:00 98.6 71 12 120/58 (78) 98 09/14/19 23:43 71 09/14/19 23:16 69 12 24 Intake and Output 09/14/19 09/15/19 19:00 07:00 Intake Total 660 ml 680 ml Output Total 200 ml 3500 ml Balance 460 ml -2820 ml Free Water 60 ml 80 ml Tube Feeding 600 ml 600 ml Stool Total 200 ml 0 ml Hemodialysis UF 3500 ml Laboratory Tests 09/15/19 03:45: White Blood Count 18.5H, Red Blood Count 3.64L, Hemoglobin 9.5L, Hematocrit 32.1L, Mean Corpuscular Volume 88, Mean Corpuscular Hemoglobin 26.1L, Mean Corpuscular Hemoglobin Concent 29.6L, Red Cell Distribution Width 18.5H, Platelet Count 338, Mean Platelet Volume 6.3L, Neutrophils (%) (Auto) , Lymphocytes (%) (Auto) , Monocytes (%) (Auto) , Eosinophils (%) (Auto) , Basophils (%) (Auto) , Differential Total Cells Counted 100, Neutrophils % ( Manual) 63, Lymphocytes % (Manual) 20, Monocytes % (Manual) 9, Eosinophils % ( Manual) 7H, Basophils % (Manual) 1, Band Neutrophils 0, Platelet Estimate Adequate, Platelet Morphology Normal, Hypochromasia 2+, Anisocytosis 2+ 09/15/19 11:38: POC Whole Blood Glucose 140H 09/15/19 16:47: POC Whole Blood Glucose 118H Height (Feet): 5 Height (Inches): 10.00 Weight (Pounds): 155 Objective Debilitated AA man NCAT (+) trach coarse BS RR abd distended, anasarca, (+) GT ext (+) edema contracted Ronny Mustafa MD Sep 15, 2019 21:40
--- NOTE | 2019-09-15 23:15 | NUR ---
NURSE NOTES: bed bath given and linens changed, oral care provided, VS stable- temp appears to be trending down- Tylenol effective- repositioned and turned pt. -will continue to monitor pt. and with plan of care.
[2019-09-16] VITALS: BP 116/53
[2019-09-16 04:00] VITALS: BP 128/70
--- NOTE | 2019-09-16 04:00 | NUR ---
NURSE NOTES: repositioned and turned pt.- oral care provided- pt. remains stable on current vent settings-will continue to monitor pt. and with plan of care.
[2019-09-16] MEDS: NovoLOG Insulin Flexpen SUBQ SCH ×4 (05:17→23:15)
[2019-09-16 05:37] LABS: BASOPHILS % (AUTO) 1.1 % (0.0-2.0); EOSINOPHILS % (AUTO) 10.6 % (0.0-3.0); HEMATOCRIT 29.5 % (42.0-52.0); HEMOGLOBIN 8.7 G/DL (14.2-18.0); LYMPHOCYTES % (AUTO) 16.5 % (20.0-45.0); MEAN CORPUSCULAR VOLUME 87 FL (80-99); MONOCYTES % (AUTO) 7.6 % (1.0-10.0); NEUTROPHILS % (AUTO) 64.2 % (45.0-75.0); PLATELET COUNT 354 K/UL (150-450); RED CELL DISTRIBUTION WIDTH 18.2 % (11.6-14.8); WHITE BLOOD COUNT 16.1 K/UL (4.8-10.8)
[2019-09-16 05:50] LABS: ANION GAP 6 mmol/L (5-15); BLOOD UREA NITROGEN 58 mg/dL (7-18); CALCIUM 8.8 MG/DL (8.5-10.1); CARBON DIOXIDE 34 MMOL/L (21-32); CHLORIDE 97 MMOL/L (98-107); CREATININE 3.1 MG/DL (0.55-1.30); SODIUM 137 MMOL/L (136-145)
[2019-09-16] MEDS ORDERED: Heparin Sod 1000 units/ml 10ml IV PRN (06:00)
[2019-09-16] MEDS ORDERED: Heparin 1000 units/ml 1ml Vial INJ PRN (06:00)
--- NOTE | 2019-09-16 07:12 | NUR ---
NURSE NOTES: Received report from [place] DAVEY.
--- NOTE | 2019-09-16 07:13 | NUR ---
NURSE HAND-OFF REPORT: Important Events on Shift:none Patient Status: stable Diet: Vital AF 1.2 Pending Orders: Pending Results/Labs: Pending MD notification: Latest Vital Signs: Temperature 98.0 , Pulse 69 , B/P 128 /70 , Respiratory Rate 12 , O2 SAT 100 , Mechanical Ventilator, O2 Flow Rate 15.0 . Vital Sign Comment: EKG Rhythm: V-Paced Rhythm change?: N MD Notified?: - MD Response: Latest Delacruz Fall Score: 70 Fall Risk: High Risk Safety Measures: Call light Within Reach, Bed Alarm Zone 2, Side Rails Side Rails x2, Bed position Low and Locked. Fall Precautions: Yellow Socks Yellow Gown Door Sign Patient Fall Education Report given to TAMICA Bills
--- NOTE | 2019-09-16 07:47 | NUR ---
NURSE NOTES: Pt. in bed, eyes opens, non-verbal. No sign of distress. Mech. vent. dependent AC12/VT550/Fi O2 at 24%/P5. No grimacing noted. HOB elevated at all times. On GTF Vital AF 1.2 at 50cc/hr. Tolerating well. Rectal tube in placed patent/intact draining greenish liquid stool. Right upper arm chest perm-a-cath in placed. Left hand #22g. in placed SL. Bed in low position, locked. Call light within reach. Will cont. to monitor.
[2019-09-16 08:00] VITALS: BP 131/62
[2019-09-16] MEDS: Metoprolol Tartrate 100mg tab GT SCH ×2 (08:26→20:02)
[2019-09-16] MEDS: Minoxidil 2.5mg tab GT SCH (08:26)
[2019-09-16] MEDS: Lactobacillus-GG tablet GT SCH ×2 (08:26→17:59)
[2019-09-16] MEDS: Zinc Oxide Oint 2oz TOPIC SCH ×2 (08:27→17:59)
[2019-09-16] MEDS ORDERED: NS 275ml ONE (08:47)
--- NOTE | 2019-09-16 08:53 | General Progress Note ---
Assessment/Plan Assessment/Plan: Assessment/Plan Assessment/Plan: Assessment - colonoscopy negative to hepatic flexure - diarrhea - presumed TF related - abnormal LFT - Anemia - leukocytosis - stool OB (+) - EGD --> gastritis - Renal failure - Anasarca - resp failure, trach - dysphagia, GT - encephalopathy, contracted - poor px Recommendations - Continue TF - Elevate HOB - f/u labs - PPI - abx - supportive care Subjective ROS Limited/Unobtainable: No Allergies: Coded Allergies: No Known Allergies (Unverified , 06/10/19) Objective Last 24 Hour Vital Signs Date Time Temp Pulse Resp B/P (MAP) Pulse Ox O2 Delivery O2 Flow Rate FiO2 09/16/19 08:26 68 131/62 09/16/19 08:26 131/62 09/16/19 08:00 98.1 68 18 131/62 (85) 100 09/16/19 06:58 67 12 24 09/16/19 04:40 69 12 24 09/16/19 04:00 Mechanical Ventilator 09/16/19 04:00 98.0 68 16 128/70 (89) 100 09/16/19 04:00 24 09/16/19 03:46 68 09/16/19 02:52 67 12 24 09/16/19 01:02 66 12 24 09/16/19 00:00 98.1 66 16 116/53 (74) 100 09/16/19 00:00 Mechanical Ventilator 09/16/19 00:00 24 09/15/19 23:56 73 09/15/19 23:02 87 14 24 09/15/19 21:11 68 12 09/15/19 20:39 98.9 09/15/19 20:04 72 138/60 09/15/19 20:00 24 09/15/19 20:00 Mechanical Ventilator 09/15/19 20:00 99.6 72 16 138/60 (86) 99 09/15/19 19:23 72 09/15/19 19:03 72 12 24 09/15/19 16:59 72 12 24 09/15/19 16:00 Mechanical Ventilator 09/15/19 16:00 98.2 69 14 109/47 (67) 100 09/15/19 16:00 71 09/15/19 16:00 24 09/15/19 14:48 74 12 24 09/15/19 12:51 71 12 24 09/15/19 12:00 70 09/15/19 12:00 24 09/15/19 12:00 99.0 71 14 102/44 (63) 98 09/15/19 12:00 Mechanical Ventilator 09/15/19 11:06 69 12 24 Intake and Output 09/15/19 09/16/19 19:00 07:00 Intake Total 900 ml 600 ml Output Total 50 ml Balance 850 ml 600 ml Free Water 300 ml 50 ml Tube Feeding 600 ml 550 ml Stool Total 50 ml # Bowel Movements 50 Laboratory Tests 09/15/19 11:38: POC Whole Blood Glucose 140H 09/15/19 16:47: POC Whole Blood Glucose 118H 09/15/19 22:41: POC Whole Blood Glucose [Pending] 09/16/19 04:30: White Blood Count 16.1H, Red Blood Count 3.40L, Hemoglobin 8.7L, Hematocrit 29.5L, Mean Corpuscular Volume 87, Mean Corpuscular Hemoglobin 25.6L, Mean Corpuscular Hemoglobin Concent 29.5L, Red Cell Distribution Width 18.2H, Platelet Count 354, Mean Platelet Volume 6.9, Neutrophils (%) (Auto) 64.2, Lymphocytes (%) (Auto) 16.5L, Monocytes (%) (Auto) 7.6, Eosinophils (%) (Auto) 10.6H, Basophils (%) (Auto) 1.1, Sodium Level 137, Potassium Level 4.0, Chloride Level 97L, Carbon Dioxide Level 34H, Anion Gap 6, Blood Urea Nitrogen 58H, Creatinine 3.1H, Estimat Glomerular Filtration Rate 19.6, Glucose Level 164H, Calcium Level 8.8 09/16/19 04:37: POC Whole Blood Glucose [Pending] Height (Feet): 5 Height (Inches): 10.00 Weight (Pounds): 117 General Appearance: lethargic EENT: normal ENT inspection Neck: supple Cardiovascular: normal rate Respiratory/Chest: decreased breath sounds Abdomen: hypoactive bowel sounds Extremities: non-tender Deon Landry MD Sep 16, 2019 08:53
--- NOTE | 2019-09-16 08:54 | Diagnostic Imaging Report ---
EXAM: XR Chest, 1 View CLINICAL HISTORY: INFECT TECHNIQUE: Frontal view of the chest. COMPARISON: September 09, 2019. FINDINGS: Stable support lines. Several overlying EKG leads and catheters. Pacemaker device again noted. Stable cardiomediastinal silhouette. Slight interval improvement in previously noted right greater than left infiltrates. Bilateral pleural effusions, little changed. IMPRESSION: Slight interval improvement in previously noted right greater than left infiltrates. Bilateral pleural effusions, little changed.
--- NOTE | 2019-09-16 08:59 | NUR ---
RADIOLOGY DEPT., CHEST X-RAY DONE.-P.DYE
--- NOTE | 2019-09-16 09:30 | NUR ---
NURSE NOTES: Pt. started HD at present. V/S stable.
--- NOTE | 2019-09-16 10:53 | Surgery Progress Note ---
Surgery Progress Note Subjective Procedure Performed Right femoral temporary hemodialysis catheter removal Additional Comments no acute events Objective Last 24 Hour Vital Signs Date Time Temp Pulse Resp B/P (MAP) Pulse Ox O2 Delivery O2 Flow Rate FiO2 09/16/19 10:40 67 12 24 09/16/19 08:52 66 12 24 09/16/19 08:26 68 131/62 09/16/19 08:26 131/62 09/16/19 08:00 Mechanical Ventilator 09/16/19 08:00 67 09/16/19 08:00 98.1 68 18 131/62 (85) 100 09/16/19 08:00 24 09/16/19 06:58 67 12 24 09/16/19 04:40 69 12 24 09/16/19 04:00 Mechanical Ventilator 09/16/19 04:00 98.0 68 16 128/70 (89) 100 09/16/19 04:00 24 09/16/19 03:46 68 09/16/19 02:52 67 12 24 09/16/19 01:02 66 12 09/16/19 00:00 98.1 66 16 116/53 (74) 100 09/16/19 00:00 Mechanical Ventilator 09/16/19 00:00 24 09/15/19 23:56 73 09/15/19 23:02 87 14 24 09/15/19 21:11 68 12 09/15/19 20:39 98.9 09/15/19 20:04 72 138/60 09/15/19 20:00 24 09/15/19 20:00 Mechanical Ventilator 09/15/19 20:00 99.6 72 16 138/60 (86) 99 09/15/19 19:23 72 09/15/19 19:03 72 12 24 09/15/19 16:59 72 12 24 09/15/19 16:00 Mechanical Ventilator 09/15/19 16:00 98.2 69 14 109/47 (67) 100 09/15/19 16:00 71 09/15/19 16:00 24 09/15/19 14:48 74 12 24 09/15/19 12:51 71 12 24 09/15/19 12:00 70 09/15/19 12:00 24 09/15/19 12:00 99.0 71 14 102/44 (63) 98 09/15/19 12:00 Mechanical Ventilator 09/15/19 11:06 69 12 24 I&O Intake and Output 09/15/19 09/16/19 19:00 07:00 Intake Total 900 ml 600 ml Output Total 50 ml Balance 850 ml 600 ml Free Water 300 ml 50 ml Tube Feeding 600 ml 550 ml Stool Total 50 ml # Bowel Movements 50 Dressing: other Wound: other Drains: other Cardiovascular: RSR Respiratory: decreased breath sounds Abdomen: soft, present bowel sounds Extremities: no cyanosis Laboratory Tests Test 09/15/19 11:38 09/15/19 16:47 09/15/19 22:41 09/16/19 04:30 POC Whole Blood Glucose 140 MG/DL (74-106) H 118 MG/DL (74-106) H Pending White Blood Count 16.1 K/UL (4.8-10.8) H Red Blood Count 3.40 M/UL (4.70-6.10) L Hemoglobin 8.7 G/DL (14.2-18.0) L Hematocrit 29.5 % (42.0-52.0) L Mean Corpuscular Volume 87 FL (80-99) Mean Corpuscular Hemoglobin 25.6 PG (27.0-31.0) L Mean Corpuscular Hemoglobin Concent 29.5 G/DL (32.0-36.0) L Red Cell Distribution Width 18.2 % (11.6-14.8) H Platelet Count 354 K/UL (150-450) Mean Platelet Volume 6.9 FL (6.5-10.1) Neutrophils (%) (Auto) 64.2 % (45.0-75.0) Lymphocytes (%) (Auto) 16.5 % (20.0-45.0) L Monocytes (%) (Auto) 7.6 % (1.0-10.0) Eosinophils (%) (Auto) 10.6 % (0.0-3.0) H Basophils (%) (Auto) 1.1 % (0.0-2.0) Sodium Level 137 MMOL/L (136-145) Potassium Level 4.0 MMOL/L (3.5-5.1) Chloride Level 97 MMOL/L (98-107) L Carbon Dioxide Level 34 MMOL/L (21-32) H Anion Gap 6 mmol/L (5-15) Blood Urea Nitrogen 58 mg/dL (7-18) H Creatinine 3.1 MG/DL (0.55-1.30) H Estimat Glomerular Filtration Rate 19.6 mL/min (>60) Glucose Level 164 MG/DL (74-106) H Calcium Level 8.8 MG/DL (8.5-10.1) Test 09/16/19 04:37 POC Whole Blood Glucose Pending Plan Problems: (1) Anemia (2) Hyponatremia (3) Leukocytosis Assessment & Plan: Tracheostomy, left chest pacemaker are again demonstrated. There is bilateral interstitial and airspace disease and bilateral pleural fluid again demonstrated. This appears more severe than on the prior study. Bilateral interstitial and airspace infiltrates versus edema. Bilateral pleural effusions Leukocytosis, anemia, tachycardia, abnormal labs. Wound evaluated and likely etiology of patient's sepsis. Leukocytosis etiology work-up antibiotics per infectious disease Appreciate nephrology input transfuse with dialysis We will follow with recommendations thank you allowing participation's care plan HD access temp HD discussed with medical teams line okay HD as per renal persistent leukocytosis flow cyto noted improving trending down right fem line removed (4) Ventilator dependent (5) Right lower lobe pneumonia (6) Hypokalemia (7) Hyperkalemia (8) Anasarca (9) Decubitus skin ulcer Assessment & Plan: pt presented on admission with generalized edemae.Skin assessed under tracheostomy and no areas of concerns noted. GT Insertion is marginally erythematous with small amt slough at stoma. Unstageable Pressure Injury R elbow. Base of wound is 100% yellow slough, Borders are erythematous. Wound oozing small amt haemopurulent exudate.Darker skin tone without elevation in skin temp or erythema periwound. Pt's penis and scrotum are grossly edematous and enlarged and weeping serous exudate from numerous sites both from penis and scrotum. Two small open wounds noted at base of at base of shaft of penis ,and contreras aspect of scrotum. Both wounds oozing large amt sanguineous and serosanguineous exudate. Multiple open wounds with Biofilm at base of each wounds noted to contreras/lateral,inferior and posterior aspects of scrotum. These wounds noted to be oozing moderate amts of serosanguineous exudate. Hypertrophic scar with scattered areas of hyperpigmentation noted to Sacrum. DTPI noted to L Buttocks (L)7cm x (W)9cm. Base of wound is purple and indurated.Darker skin tone without erythema, induration or fluctuance R and L ischial tuberosities. Both heels are boggy with non-blanchable erythema. Tx.Plan: Cleanse wound R elbow with Saline. Apply TheraHoney, Apply Moisture Barrier Paste periwound. Cover with Optifoam drsg.Change Daily and prn. Wash GT site with soap and water.Pat dry. Apply Zinc Oxide Paste to GT site Daily. Leave Open to Air. Apply Zinc Oxide Paste to entire Scrotum, Place ABD pads to R and L lateral, and posterior aspects of scrotum TWICE daily. Apply Cavilon Skin Barrier to malleoli and both Heels. Cover each site with Optifoam drsgs. Change every 7 days and prn. Reposition at least every 2hours or as tolerated. Off-load heels with Pillows. APM/BECCA Mattress overlay. (10) Malnutrition Assessment & Plan: DAILY ESTIMATED NEEDS: Needs based on Renal, critical care, wound/ 61kg 22-30 kcals/kg [id number] total kcals 1.25-2 g protein/kg 76-122 g total protein Fluid per MD, now on HD NUTRITION DIAGNOSIS: * Swallowing difficulty R/T respiratory failure, dysphagia as evidenced by trach/vent dep, PEG dep * Increased kcal/prot needs R/T wound healing as evidenced by admitted w/ multiple pressure injuries including full thickness wounds at junction of Shaft of penis, dorsal scrotum, R elbow, and DTPI @ L buttocks. CURRENT TF:Vital AF 1.2 @ 50ml/hr x 24 hrs + Garo BID ENTERAL NUTRITION RECOMMENDATIONS: Vital AF 1.2 @ 50ml/hr x 24 hrs to provide 1200ml, 1440kcal,9 0g prot, 973ml free water * Maintain elemental TF of Vital AF 1.2 w/ continued diarrhea -> monitor lytes and renal fxn closely, monitor need for renal T -> TF @ goal will provide 1642mg K and 2025mg Phos * HOB over 30 degrees/ water flush per MD * Continue Garo BID via PEG ADDITIONAL RECOMMENDATIONS: * Per SNF: HT=63" YT=015 lbs (vs EMR wt of 166lbs) -> obtain re-calibrated bedscale wt, rec daily wt monitoring * Wound healing: con't Nephrovite + Garo BID/ Vit C dosing per Nephro * Monitor renal fxn and lytes closely w/ non-renal TF - previously w/ multiple episodes of low K and phos - Check f/up phos (1. 0on 09/04) * Add probiotics and anti-diarrheal meds - prolonged diarrhea, +rectal tube (11) Uremia (12) CKD (chronic kidney disease) stage 5, GFR less than 15 ml/min (13) Colon distention Assessment & Plan: discussed with GI likely functional as having lots of loose bm rectal tube kub f/u s/p colonoscopy - findings reviewed with GI Marked distention of the sigmoid colon. 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 No evidence of bowel wall thickening or pneumatosis 12 mm focus of contrast enhancement in the right pectineus muscle. While nonspecific in appearance, appearance raises concern for a possible pseudoaneurysm. Ill- defined thickening of the pectus medius muscle could indicate some intramuscular hemorrhage. The above findings were phoned to Dr. Urias at the time of interpretation Large bilateral pleural effusions Hazy pulmonary parenchymal opacities as well as dense consolidative opacities most likely represent pulmonary edema, but could represent pneumonia Evidence of anasarca elsewhere, with generalized edema of the subcutaneous fat Bladder wall thickening, raises concern for cystitis. Avalos catheter in place Colonic diverticulosis. No evidence of diverticulitis. Tracheostomy Pacemaker Gastrostomy Jonathan Urias Sep 16, 2019 10:53
--- NOTE | 2019-09-16 11:37 | Infectious Diseases Prog Note ---
Assessment/Plan Assessment/Plan antibiotics : none A 1. klebsiella catheter infection s/p rx 2. respiratory failure 3. leucocytosis improving 4. klebsiella, pseudomonas, providencia pneumonia s/p rx COVID 19 test negative x 2 5. renal failure on HD P 1. observe off antibiotics 2. will follow up cultures Subjective ROS Limited/Unobtainable: Yes Allergies: Coded Allergies: No Known Allergies (Unverified , 06/10/19) Objective Last 24 Hour Vital Signs Date Time Temp Pulse Resp B/P (MAP) Pulse Ox O2 Delivery O2 Flow Rate FiO2 09/16/19 10:40 67 12 24 09/16/19 08:52 66 12 24 09/16/19 08:26 68 131/62 09/16/19 08:26 131/62 09/16/19 08:00 Mechanical Ventilator 09/16/19 08:00 67 09/16/19 08:00 98.1 68 18 131/62 (85) 100 09/16/19 08:00 24 09/16/19 06:58 67 12 09/16/19 04:40 69 12 24 09/16/19 04:00 Mechanical Ventilator 09/16/19 04:00 98.0 68 16 128/70 (89) 100 09/16/19 04:00 24 09/16/19 03:46 68 09/16/19 02:52 67 12 09/16/19 01:02 66 12 24 09/16/19 00:00 98.1 66 16 116/53 (74) 100 09/16/19 00:00 Mechanical Ventilator 09/16/19 00:00 24 09/15/19 23:56 73 09/15/19 23:02 87 14 24 09/15/19 21:11 68 12 24 09/15/19 20:39 98.9 09/15/19 20:04 72 138/60 09/15/19 20:00 24 09/15/19 20:00 Mechanical Ventilator 09/15/19 20:00 99.6 72 16 138/60 (86) 99 09/15/19 19:23 72 09/15/19 19:03 72 12 24 09/15/19 16:59 72 12 24 09/15/19 16:00 Mechanical Ventilator 09/15/19 16:00 98.2 69 14 109/47 (67) 100 09/15/19 16:00 71 09/15/19 16:00 24 09/15/19 14:48 74 12 24 09/15/19 12:51 71 12 24 09/15/19 12:00 70 09/15/19 12:00 24 09/15/19 12:00 99.0 71 14 102/44 (63) 98 09/15/19 12:00 Mechanical Ventilator Height (Feet): 5 Height (Inches): 10.00 Weight (Pounds): 117 HEENT: status post trach Respiratory/Chest: lungs clear Cardiovascular: normal rate, regular rhythm, no gallop/murmur Abdomen: soft, non tender, other - GT Extremities: no edema, other - right subclavian catheter Laboratory Tests Test 09/15/19 11:38 09/15/19 16:47 09/15/19 22:41 09/16/19 04:30 POC Whole Blood Glucose 140 MG/DL (74-106) H 118 MG/DL (74-106) H Pending White Blood Count 16.1 K/UL (4.8-10.8) H Red Blood Count 3.40 M/UL (4.70-6.10) L Hemoglobin 8.7 G/DL (14.2-18.0) L Hematocrit 29.5 % (42.0-52.0) L Mean Corpuscular Volume 87 FL (80-99) Mean Corpuscular Hemoglobin 25.6 PG (27.0-31.0) L Mean Corpuscular Hemoglobin Concent 29.5 G/DL (32.0-36.0) L Red Cell Distribution Width 18.2 % (11.6-14.8) H Platelet Count 354 K/UL (150-450) Mean Platelet Volume 6.9 FL (6.5-10.1) Neutrophils (%) (Auto) 64.2 % (45.0-75.0) Lymphocytes (%) (Auto) 16.5 % (20.0-45.0) L Monocytes (%) (Auto) 7.6 % (1.0-10.0) Eosinophils (%) (Auto) 10.6 % (0.0-3.0) H Basophils (%) (Auto) 1.1 % (0.0-2.0) Sodium Level 137 MMOL/L (136-145) Potassium Level 4.0 MMOL/L (3.5-5.1) Chloride Level 97 MMOL/L (98-107) L Carbon Dioxide Level 34 MMOL/L (21-32) H Anion Gap 6 mmol/L (5-15) Blood Urea Nitrogen 58 mg/dL (7-18) H Creatinine 3.1 MG/DL (0.55-1.30) H Estimat Glomerular Filtration Rate 19.6 mL/min (>60) Glucose Level 164 MG/DL (74-106) H Calcium Level 8.8 MG/DL (8.5-10.1) Test 09/16/19 04:37 POC Whole Blood Glucose Pending Current Medications Medications (Trade) Dose Ordered Sig/Leonel Route PRN Reason Start Time Stop Time Status Last Admin Dose Admin Acetaminophen (Tylenol) 650 mg Q4H PRN GT Mild Pain (Pain Scale 1-3) 09/09/19 00:45 10/09/19 00:44 09/15/19 20:09 Atorvastatin Calcium (Lipitor) 40 mg BEDTIME GT 08/09/19 21:00 11/07/19 20:59 09/15/19 20:04 Chlorhexidine Gluconate (Felipa-Hex 2%) 1 applic DAILY@1999 TOPIC 09/12/19 20:00 12/11/19 19:59 09/15/19 20:03 Clonidine HCl (Catapres Tab) 0.1 mg Q4H PRN GT For High Blood Pressure 09/09/19 12:30 12/08/19 05:29 09/15/19 04:10 Dextrose (Dextrose 50%) 25 ml Q30M PRN IV Hypoglycemia 08/09/19 07:30 11/07/19 07:29 Dextrose (Dextrose 50%) 50 ml Q30M PRN IV Hypoglycemia 08/09/19 07:30 11/07/19 07:29 Epoetin Andreas (Epoetin Andreas(ESRD on dialysis)) 10,000 unit WED-WED-WED SUBQ 08/18/19 21:00 11/16/19 20:59 09/15/19 20:03 Famotidine (Pepcid) 20 mg DAILY GT 08/30/19 09:00 11/28/19 08:59 09/16/19 08:25 Heparin Sodium (Porcine) (Heparin Sod 1000 units/ml 10ml) 2,000 unit ONCE PRN IV HD 09/16/19 06:00 09/16/19 23:59 Heparin Sodium (Porcine) (Heparin) 1,000 unit POSTHD INJ 09/14/19 09:30 10/29/19 09:29 Heparin Sodium (Porcine) (Heparin) 1,000 unit POSTHD PRN INJ POST HD 09/16/19 06:00 09/16/19 23:59 Insulin Aspart (NovoLOG) Q6HR SUBQ 08/10/19 00:00 11/07/19 11:29 09/16/19 05:17 Lactobacillus Acidophilus (Culturelle) 1 tab TWICE A DAY GT 09/14/19 18:00 12/13/19 17:59 09/16/19 08:26 Metoprolol Tartrate (Lopressor) 200 mg Q12HR GT 08/09/19 09:00 11/07/19 08:59 09/16/19 08:26 Minoxidil (Loniten) 5 mg DAILY GT 08/09/19 09:00 11/07/19 08:59 09/16/19 08:26 Sodium Chloride 1,000 ml @ 500 mls/hr Q2H PRN IVLG sbp<90 during hd 09/14/19 09:26 10/14/19 09:25 Sodium Chloride 1,000 ml @ 500 mls/hr Q2H PRN IVLG sbp<90 during hd 09/16/19 06:00 09/16/19 23:59 Zinc Oxide (Zinc Oxide) 1 applic BID TOPIC 08/10/19 18:00 11/08/19 17:59 09/16/19 08:27 Farnaz Lyle MD Sep 16, 2019 11:37
[2019-09-16 12:00] VITALS: BP 137/54
--- NOTE | 2019-09-16 12:40 | NUR ---
NURSE NOTES: S/P HD pt. remain stable. V/S stable. Output 3.5L tolerated well.
--- NOTE | 2019-09-16 14:35 | Nephrology Progress Note ---
Assessment/Plan Problem List: (1) UTI (urinary tract infection) (2) VRE (vancomycin-resistant Enterococci) infection (3) Hyponatremia (4) CKD (chronic kidney disease) stage 5, GFR less than 15 ml/min (5) Malnutrition (6) Anasarca (7) Decubitus skin ulcer (8) Anemia (9) Ventilator dependent (10) Right lower lobe pneumonia Plan seen on dialysis 09/15 cont pulm care Subjective ROS Limited/Unobtainable: Yes Objective Objective Last 24 Hour Vital Signs Date Time Temp Pulse Resp B/P (MAP) Pulse Ox O2 Delivery O2 Flow Rate FiO2 09/16/19 12:30 72 12 24 09/16/19 12:00 Mechanical Ventilator 09/16/19 12:00 24 09/16/19 12:00 97.6 70 17 137/54 (81) 100 09/16/19 11:41 65 09/16/19 10:40 67 12 24 09/16/19 08:52 66 12 09/16/19 08:26 68 131/62 09/16/19 08:26 131/62 09/16/19 08:00 Mechanical Ventilator 09/16/19 08:00 67 09/16/19 08:00 98.1 68 18 131/62 (85) 100 09/16/19 08:00 24 09/16/19 06:58 67 12 09/16/19 04:40 69 12 24 09/16/19 04:00 Mechanical Ventilator 09/16/19 04:00 98.0 68 16 128/70 (89) 100 09/16/19 04:00 24 09/16/19 03:46 68 09/16/19 02:52 67 12 24 09/16/19 01:02 66 12 24 09/16/19 00:00 98.1 66 16 116/53 (74) 100 09/16/19 00:00 Mechanical Ventilator 09/16/19 00:00 24 09/15/19 23:56 73 09/15/19 23:02 87 14 24 09/15/19 21:11 68 12 24 09/15/19 20:39 98.9 09/15/19 20:04 72 138/60 09/15/19 20:00 24 09/15/19 20:00 Mechanical Ventilator 09/15/19 20:00 99.6 72 16 138/60 (86) 99 09/15/19 19:23 72 09/15/19 19:03 72 12 24 09/15/19 16:59 72 12 24 09/15/19 16:00 Mechanical Ventilator 09/15/19 16:00 98.2 69 14 109/47 (67) 100 09/15/19 16:00 71 09/15/19 16:00 24 09/15/19 14:48 74 12 24 Intake and Output 09/15/19 09/16/19 19:00 07:00 Intake Total 900 ml 600 ml Output Total 50 ml Balance 850 ml 600 ml Free Water 300 ml 50 ml Tube Feeding 600 ml 550 ml Stool Total 50 ml # Bowel Movements 50 Laboratory Tests 09/15/19 16:47: POC Whole Blood Glucose 118H 09/15/19 22:41: POC Whole Blood Glucose [Pending] 09/16/19 04:30: White Blood Count 16.1H, Red Blood Count 3.40L, Hemoglobin 8.7L, Hematocrit 29.5L, Mean Corpuscular Volume 87, Mean Corpuscular Hemoglobin 25.6L, Mean Corpuscular Hemoglobin Concent 29.5L, Red Cell Distribution Width 18.2H, Platelet Count 354, Mean Platelet Volume 6.9, Neutrophils (%) (Auto) 64.2, Lymphocytes (%) (Auto) 16.5L, Monocytes (%) (Auto) 7.6, Eosinophils (%) (Auto) 10.6H, Basophils (%) (Auto) 1.1, Sodium Level 137, Potassium Level 4.0, Chloride Level 97L, Carbon Dioxide Level 34H, Anion Gap 6, Blood Urea Nitrogen 58H, Creatinine 3.1H, Estimat Glomerular Filtration Rate 19.6, Glucose Level 164H, Calcium Level 8.8 09/16/19 04:37: POC Whole Blood Glucose [Pending] Height (Feet): 5 Height (Inches): 10.00 Weight (Pounds): 117 General Appearance: lethargic, confused, other - on vent Cardiovascular: regular rhythm Respiratory/Chest: crackles/rales Abdomen: non tender Extremities: moderate edema Neurologic: unresponsive Carmelo Frank MD Sep 16, 2019 14:34
--- NOTE | 2019-09-16 15:48 | Pulmonology Progress Note ---
Subjective ROS Limited/Unobtainable: No Constitutional: Denies: fever Gastrointestinal/Abdominal: Reports: other - had EGT & gastric biopsy yesterday Allergies: Coded Allergies: No Known Allergies (Unverified , 06/10/19) All Systems: reviewed and negative except above Objective Last 24 Hour Vital Signs Date Time Temp Pulse Resp B/P (MAP) Pulse Ox O2 Delivery O2 Flow Rate FiO2 09/16/19 14:30 79 12 24 09/16/19 12:30 72 12 24 09/16/19 12:00 Mechanical Ventilator 09/16/19 12:00 24 09/16/19 12:00 97.6 70 17 137/54 (81) 100 09/16/19 11:41 65 09/16/19 10:40 67 12 24 09/16/19 08:52 66 12 24 09/16/19 08:26 68 131/62 09/16/19 08:26 131/62 09/16/19 08:00 Mechanical Ventilator 09/16/19 08:00 67 09/16/19 08:00 98.1 68 18 131/62 (85) 100 09/16/19 08:00 24 09/16/19 06:58 67 12 24 09/16/19 04:40 69 12 24 09/16/19 04:00 Mechanical Ventilator 09/16/19 04:00 98.0 68 16 128/70 (89) 100 09/16/19 04:00 24 09/16/19 03:46 68 09/16/19 02:52 67 12 24 09/16/19 01:02 66 12 24 09/16/19 00:00 98.1 66 16 116/53 (74) 100 09/16/19 00:00 Mechanical Ventilator 09/16/19 00:00 24 09/15/19 23:56 73 09/15/19 23:02 87 14 24 09/15/19 21:11 68 12 24 09/15/19 20:39 98.9 09/15/19 20:04 72 138/60 09/15/19 20:00 24 09/15/19 20:00 Mechanical Ventilator 09/15/19 20:00 99.6 72 16 138/60 (86) 99 09/15/19 19:23 72 09/15/19 19:03 72 12 24 09/15/19 16:59 72 12 24 09/15/19 16:00 Mechanical Ventilator 09/15/19 16:00 98.2 69 14 109/47 (67) 100 09/15/19 16:00 71 09/15/19 16:00 24 Intake and Output 09/15/19 09/16/19 19:00 07:00 Intake Total 900 ml 650 ml Output Total 50 ml Balance 850 ml 650 ml Free Water 300 ml 50 ml Tube Feeding 600 ml 600 ml Stool Total 50 ml # Bowel Movements 50 Laboratory Tests 09/15/19 16:47: POC Whole Blood Glucose 118H 09/15/19 22:41: POC Whole Blood Glucose [Pending] 09/16/19 04:30: White Blood Count 16.1H, Red Blood Count 3.40L, Hemoglobin 8.7L, Hematocrit 29.5L, Mean Corpuscular Volume 87, Mean Corpuscular Hemoglobin 25.6L, Mean Corpuscular Hemoglobin Concent 29.5L, Red Cell Distribution Width 18.2H, Platelet Count 354, Mean Platelet Volume 6.9, Neutrophils (%) (Auto) 64.2, Lymphocytes (%) (Auto) 16.5L, Monocytes (%) (Auto) 7.6, Eosinophils (%) (Auto) 10.6H, Basophils (%) (Auto) 1.1, Sodium Level 137, Potassium Level 4.0, Chloride Level 97L, Carbon Dioxide Level 34H, Anion Gap 6, Blood Urea Nitrogen 58H, Creatinine 3.1H, Estimat Glomerular Filtration Rate 19.6, Glucose Level 164H, Calcium Level 8.8 09/16/19 04:37: POC Whole Blood Glucose [Pending] Current Medications Medications (Trade) Dose Ordered Sig/Leonel Route PRN Reason Start Time Stop Time Status Last Admin Dose Admin Acetaminophen (Tylenol) 650 mg Q4H PRN GT Mild Pain (Pain Scale 1-3) 09/09/19 00:45 10/09/19 00:44 09/15/19 20:09 Atorvastatin Calcium (Lipitor) 40 mg BEDTIME GT 08/09/19 21:00 11/07/19 20:59 09/15/19 20:04 Chlorhexidine Gluconate (Felipa-Hex 2%) 1 applic DAILY@1999 TOPIC 09/12/19 20:00 12/11/19 19:59 09/15/19 20:03 Clonidine HCl (Catapres Tab) 0.1 mg Q4H PRN GT For High Blood Pressure 09/09/19 12:30 12/08/19 05:29 09/15/19 04:10 Dextrose (Dextrose 50%) 25 ml Q30M PRN IV Hypoglycemia 08/09/19 07:30 11/07/19 07:29 Dextrose (Dextrose 50%) 50 ml Q30M PRN IV Hypoglycemia 08/09/19 07:30 11/07/19 07:29 Epoetin Andreas (Epoetin Andreas(ESRD on dialysis)) 10,000 unit WED- SUBQ 08/18/19 21:00 11/16/19 20:59 09/15/19 20:03 Famotidine (Pepcid) 20 mg DAILY GT 08/30/19 09:00 11/28/19 08:59 09/16/19 08:25 Heparin Sodium (Porcine) (Heparin Sod 1000 units/ml 10ml) 2,000 unit ONCE PRN IV HD 09/16/19 06:00 09/16/19 23:59 Heparin Sodium (Porcine) (Heparin) 1,000 unit POSTHD INJ 09/14/19 09:30 10/29/19 09:29 Heparin Sodium (Porcine) (Heparin) 1,000 unit POSTHD PRN INJ POST HD 09/16/19 06:00 09/16/19 23:59 Insulin Aspart (NovoLOG) Q6HR SUBQ 08/10/19 00:00 11/07/19 11:29 09/16/19 05:17 Lactobacillus Acidophilus (Culturelle) 1 tab TWICE A DAY GT 09/14/19 18:00 12/13/19 17:59 09/16/19 08:26 Metoprolol Tartrate (Lopressor) 200 mg Q12HR GT 08/09/19 09:00 11/07/19 08:59 09/16/19 08:26 Minoxidil (Loniten) 5 mg DAILY GT 08/09/19 09:00 11/07/19 08:59 09/16/19 08:26 Sodium Chloride 1,000 ml @ 500 mls/hr Q2H PRN IVLG sbp<90 during hd 09/14/19 09:26 10/14/19 09:25 Sodium Chloride 1,000 ml @ 500 mls/hr Q2H PRN IVLG sbp<90 during hd 09/16/19 06:00 09/16/19 23:59 Zinc Oxide (Zinc Oxide) 1 applic BID TOPIC 08/10/19 18:00 11/08/19 17:59 09/16/19 08:27 Assessment/Plan Assessment/Plan Pulmonary Progress Note Assessment/Plan Assessment/Plan: IMPRESSION: 1. anemia. 2. GI bleed. 3. Leukocytosis. 4. Probable sepsis. + BCX 5. Acute on chronic renal failure. 6. Hyponatremia. 7. Severe protein-calorie malnutrition. 8. Significantly elevated C-reactive protein concerning for infectious etiology. 9. Tracheostomy, G-tube. 10. Ventilator dependence. 11. anasarca with bilateral pleural effusion 12. Hematuria 13. V pacing PLAN needs placement care noted on vent/ no wean surgical follow up monitor labs and adjust RX ID follow up monitor renal function: HD prognosis poor impression, plan, and exam edited and reviewed in detail care discussed with RN Subjective ROS Limited/Unobtainable: Yes Allergies: Coded Allergies: No Known Allergies (Unverified , 06/10/19) Subjective remains ill on vent on HD currently Objective Vital Signs Noted Height (Feet): 5 Height (Inches): 10.00 Weight (Pounds): 155 Objective GENERAL: Ill-appearing male, chronically debilitated. HEENT: Tracheostomy in midline. LUNGS: Coarse breath sounds. reduced breath sounds CARDIAC: S1, S2. Regular rate and rhythm. ABDOMEN: Soft. G-tube. EXTREMITIES: With noted edema. NEUROLOGICAL: Poorly responsive, weak diffusely. Laboratory Tests noted CXR: Some improvement Kenny Mccurdy MD Sep 16, 2019 15:48
[2019-09-16 16:00] VITALS: BP 120/62
--- NOTE | 2019-09-16 18:56 | NUR ---
NURSE HAND-OFF REPORT: Important Events on Shift: S/P HD 3.5L out Patient Status: Diet: Pending Orders: Pending Results/Labs: Pending MD notification: Latest Vital Signs: Temperature 98.8 , Pulse 75 , B/P 120 /62 , Respiratory Rate 12 , O2 SAT 97 , Mechanical Ventilator, O2 Flow Rate 15.0 . Vital Sign Comment: EKG Rhythm: V-Paced Rhythm change?: N MD Notified?: - MD Response: Latest Delacruz Fall Score: 70 Fall Risk: High Risk Safety Measures: Call light Within Reach, Bed Alarm Zone 2, Side Rails Side Rails x2, Bed position Low and Locked. Fall Precautions: Yellow Socks Yellow Gown Door Sign Patient Fall Education Report given to ODALYS DAVEY.
--- NOTE | 2019-09-16 19:31 | NUR ---
NURSE NOTES: Received pt. from Brodie Bills, pt. in bed with eyes open- obtunded, non-verbal- not able to make needs known, no signs of symptoms of acute cardiac or respiratory distress noted, bed alarm on, side rails up x's3 and safety brakes engaged, call light within easy reach, bed locked in position, pt. appears to be tolerating current vent settings well- AC 12, TV 550, Fio2 @24% and peep 5, No signs or symptoms of acute cardiac or respiratory distress noted, G tube to upper and quadrant- patent and intact- dressing changed- running Vital AF 1.2 at 50cc/hr- no residual noted, HOB elevated, patients skin appears very dry- generalized edema, rectal tube patent and draining to gravity, RFA 18G IV intact and patent-SL, will continue to monitor pt. and with plan of care.
[2019-09-16 19:55] VITALS: BP 149/91
[2019-09-16] MEDS: Atorvastatin 20mg tab GT SCH (20:02)
[2019-09-16] MEDS: Dyna-Hex 2% Top Sol 2oz TOPIC SCH (20:02)
[2019-09-17] VITALS: BP 126/65
--- NOTE | 2019-09-17 02:23 | NUR ---
NURSE NOTES: bed bath given, linens changed, oral care provided, pt. appears to be tolerating current vent settings well- sating at 98%- no distress noted, will continue to monitor pt. and with plan of care.
[2019-09-17 04:00] VITALS: BP 125/60
[2019-09-17] MEDS: NovoLOG Insulin Flexpen SUBQ SCH ×3 (05:30→17:14)
--- NOTE | 2019-09-17 07:06 | NUR ---
NURSE HAND-OFF REPORT: Important Events on Shift: none Patient Status: stable Diet: Vital AF 1.2 Pending Orders: Pending Results/Labs: Pending MD notification: Latest Vital Signs: Temperature 98.5 , Pulse 73 , B/P 125 /60 , Respiratory Rate 18 , O2 SAT 100 , Mechanical Ventilator, O2 Flow Rate 15.0 . Vital Sign Comment: EKG Rhythm: V-Paced Rhythm change?: N MD Notified?: - MD Response: Latest Delacruz Fall Score: 70 Fall Risk: High Risk Safety Measures: Call light Within Reach, Bed Alarm Zone 2, Side Rails Side Rails x2, Bed position Low and Locked. Fall Precautions: Yellow Socks Yellow Gown Door Sign Patient Fall Education Report given to TAMICA العلي- aware to f/u on any abnormal am labs as labs are still pending.
--- NOTE | 2019-09-17 07:25 | NUR ---
NURSE NOTES: Received report from TAMICA Atkinson. Patient in bed resting, no active s/s cardiac, respiratory distress noticed at this time. Patient obtunded, open eyes spontaneously, non-verbal. Patient V-paced 73, trach to vent Portex 8 AC 12 TV 550 Fio2 24% PEEP 5. GT feeding running vital AF @ 50ml/h, no residual at this time. Rectal tube patent, draining well to gravity. IV on right FA 18G, asymptomatic, patent, intact. HD cath, right subclavian permacath intact and patent. Bed in lowest position, side rails upx3, call light within reach, bed alarm on, Will continue to monitor.
[2019-09-17 08:00] VITALS: BP 147/77
--- NOTE | 2019-09-17 08:00 | NUR ---
RD ASSESSMENT & RECOMMENDATIONS SEE CARE ACTIVITY FOR COMPLETE ASSESSMENT DAILY ESTIMATED NEEDS: Needs based on Renal, critical care, wound/ 61kg 22-30 kcals/kg 5353-5775 total kcals 1.25-2 g protein/kg 76-122 g total protein Fluid per MD, now on HD NUTRITION DIAGNOSIS: * Swallowing difficulty R/T respiratory failure, dysphagia as evidenced by trach/vent dep, PEG dep * Increased kcal/prot needs R/T wound healing as evidenced by admitted w/ multiple pressure injuries including full thickness wounds at junction of Shaft of penis, dorsal scrotum, R elbow, and DTPI @ L buttocks. CURRENT TF:Vital AF 1.2 @ 50ml/hr x 24 hrs + Garo BID ENTERAL NUTRITION RECOMMENDATIONS: Vital AF 1.2 @ 50ml/hr x 24 hrs to provide 1200ml, 1440kcal,9 0g prot, 973ml free water * Maintain elemental TF of Vital AF 1.2 w/ continued diarrhea -> monitor lytes and renal fxn closely, monitor need for renal T -> TF @ goal will provide 1642mg K and 5mg Phos * HOB over 30 degrees/ water flush per MD * Continue Garo BID via PEG ADDITIONAL RECOMMENDATIONS: * Per SNF: HT=63" VC=330 lbs (vs EMR wt of 166lbs) -> obtain re-calibrated bedscale wt, rec daily wt monitoring -> Trend wt, need for TF increase * Wound healing: con't Nephrovite + Garo BID/ Vit C dosing per Nephro * Monitor renal fxn and lytes closely w/ non-renal TF -> K wnl; rec updated phos * Daily wts w/ drop to 118, 117 lbs, rec to recalibrate bed w/ P200 mattress to confirm updated CBW * Add probiotics and anti-diarrheal meds - prolonged diarrhea, +rectal tube
[2019-09-17] MEDS: Minoxidil 2.5mg tab GT SCH (08:08)
[2019-09-17] MEDS: Lactobacillus-GG tablet GT SCH ×2 (08:08→17:12)
[2019-09-17] MEDS: Metoprolol Tartrate 100mg tab GT SCH ×2 (08:08→21:22)
[2019-09-17] MEDS: Zinc Oxide Oint 2oz TOPIC SCH ×2 (08:09→17:15)
--- NOTE | 2019-09-17 08:29 | General Progress Note ---
Assessment/Plan Assessment/Plan: Assessment/Plan Assessment/Plan: Assessment - colonoscopy negative to hepatic flexure - diarrhea - presumed TF related - abnormal LFT - Anemia - leukocytosis - stool OB (+) - EGD --> gastritis - Renal failure - Anasarca - resp failure, trach - dysphagia, GT - encephalopathy, contracted - poor px Recommendations - Continue TF - Elevate HOB - f/u labs - PPI - abx - supportive care Subjective ROS Limited/Unobtainable: No Allergies: Coded Allergies: No Known Allergies (Unverified , 06/10/19) Objective Last 24 Hour Vital Signs Date Time Temp Pulse Resp B/P (MAP) Pulse Ox O2 Delivery O2 Flow Rate FiO2 09/17/19 08:08 72 147/77 09/17/19 08:08 147/77 09/17/19 08:00 24 09/17/19 08:00 98.2 72 12 147/77 (100) 99 09/17/19 07:25 73 12 24 09/17/19 04:00 24 09/17/19 04:00 Mechanical Ventilator 09/17/19 04:00 98.5 73 18 125/60 (81) 100 09/17/19 03:53 72 09/17/19 03:26 72 12 24 09/17/19 00:00 98.1 72 18 126/65 (85) 100 09/17/19 00:00 Mechanical Ventilator 09/17/19 00:00 24 09/17/19 00:00 76 09/16/19 23:19 74 12 24 09/16/19 20:02 71 149/91 09/16/19 20:00 24 09/16/19 20:00 Mechanical Ventilator 09/16/19 19:55 98.4 71 18 149/91 (110) 100 09/16/19 19:29 73 09/16/19 19:18 73 12 24 09/16/19 17:50 75 12 24 09/16/19 16:00 24 09/16/19 16:00 Mechanical Ventilator 09/16/19 16:00 86 09/16/19 16:00 98.8 73 19 120/62 (81) 97 09/16/19 14:30 79 12 24 09/16/19 12:30 72 12 24 09/16/19 12:00 Mechanical Ventilator 09/16/19 12:00 24 09/16/19 12:00 97.6 70 17 137/54 (81) 100 09/16/19 11:41 65 09/16/19 10:40 67 12 24 09/16/19 08:52 66 12 24 Intake and Output 09/16/19 09/17/19 19:00 07:00 Intake Total 750 ml 600 ml Balance 750 ml 600 ml Free Water 150 ml 50 ml Tube Feeding 600 ml 550 ml # Bowel Movements 100 50 Laboratory Tests 09/16/19 22:48: POC Whole Blood Glucose [Pending] 09/17/19 05:28: POC Whole Blood Glucose 162H Height (Feet): 5 Height (Inches): 10.00 Weight (Pounds): 118 General Appearance: alert EENT: normal ENT inspection Neck: normal alignment Cardiovascular: normal rate Respiratory/Chest: decreased breath sounds Abdomen: hypoactive bowel sounds Extremities: non-tender Deon Landry MD Sep 17, 2019 08:29
[2019-09-17] MEDS ORDERED: NS 275ml ONE (08:36)
--- NOTE | 2019-09-17 09:48 | Pulmonology Progress Note ---
Subjective ROS Limited/Unobtainable: No Constitutional: Denies: fever Gastrointestinal/Abdominal: Reports: other - had EGT & gastric biopsy yesterday Allergies: Coded Allergies: No Known Allergies (Unverified , 06/10/19) All Systems: reviewed and negative except above Objective Last 24 Hour Vital Signs Date Time Temp Pulse Resp B/P (MAP) Pulse Ox O2 Delivery O2 Flow Rate FiO2 09/17/19 09:22 66 12 24 09/17/19 08:08 72 147/77 09/17/19 08:08 147/77 09/17/19 08:00 24 09/17/19 08:00 98.2 72 12 147/77 (100) 99 09/17/19 08:00 Mechanical Ventilator 09/17/19 08:00 73 09/17/19 07:25 73 12 24 09/17/19 04:00 24 09/17/19 04:00 Mechanical Ventilator 09/17/19 04:00 98.5 73 18 125/60 (81) 100 09/17/19 03:53 72 09/17/19 03:26 72 12 24 09/17/19 00:00 98.1 72 18 126/65 (85) 100 09/17/19 00:00 Mechanical Ventilator 09/17/19 00:00 24 09/17/19 00:00 76 09/16/19 23:19 74 12 24 09/16/19 20:02 71 149/91 09/16/19 20:00 24 09/16/19 20:00 Mechanical Ventilator 09/16/19 19:55 98.4 71 18 149/91 (110) 100 09/16/19 19:29 73 09/16/19 19:18 73 12 24 09/16/19 17:50 75 12 24 09/16/19 16:00 24 09/16/19 16:00 Mechanical Ventilator 09/16/19 16:00 86 09/16/19 16:00 98.8 73 19 120/62 (81) 97 09/16/19 14:30 79 12 24 09/16/19 12:30 72 12 24 09/16/19 12:00 Mechanical Ventilator 09/16/19 12:00 24 09/16/19 12:00 97.6 70 17 137/54 (81) 100 09/16/19 11:41 65 09/16/19 10:40 67 12 24 Intake and Output 09/16/19 09/17/19 19:00 07:00 Intake Total 750 ml 600 ml Balance 750 ml 600 ml Free Water 150 ml 50 ml Tube Feeding 600 ml 550 ml # Bowel Movements 100 50 Laboratory Tests 09/16/19 22:48: POC Whole Blood Glucose [Pending] 09/17/19 05:28: POC Whole Blood Glucose 162H Current Medications Medications (Trade) Dose Ordered Sig/Leonel Route PRN Reason Start Time Stop Time Status Last Admin Dose Admin Acetaminophen (Tylenol) 650 mg Q4H PRN GT Mild Pain (Pain Scale 1-3) 09/09/19 00:45 10/09/19 00:44 09/15/19 20:09 Atorvastatin Calcium (Lipitor) 40 mg BEDTIME GT 08/09/19 21:00 11/07/19 20:59 09/16/19 20:02 Chlorhexidine Gluconate (Felipa-Hex 2%) 1 applic DAILY@1999 TOPIC 09/12/19 20:00 12/11/19 19:59 09/16/19 20:02 Clonidine HCl (Catapres Tab) 0.1 mg Q4H PRN GT For High Blood Pressure 09/09/19 12:30 12/08/19 05:29 09/15/19 04:10 Dextrose (Dextrose 50%) 25 ml Q30M PRN IV Hypoglycemia 08/09/19 07:30 11/07/19 07:29 Dextrose (Dextrose 50%) 50 ml Q30M PRN IV Hypoglycemia 08/09/19 07:30 11/07/19 07:29 Epoetin Andreas (Epoetin Andreas(ESRD on dialysis)) 10,000 unit WED-WED-WED SUBQ 08/18/19 21:00 11/16/19 20:59 09/15/19 20:03 Famotidine (Pepcid) 20 mg DAILY GT 08/30/19 09:00 11/28/19 08:59 09/17/19 08:08 Heparin Sodium (Porcine) (Heparin) 1,000 unit POSTHD INJ 09/14/19 09:30 10/29/19 09:29 Insulin Aspart (NovoLOG) Q6HR SUBQ 08/10/19 00:00 11/07/19 11:29 09/17/19 05:30 Lactobacillus Acidophilus (Culturelle) 1 tab TWICE A DAY GT 09/14/19 18:00 12/13/19 17:59 09/17/19 08:08 Metoprolol Tartrate (Lopressor) 200 mg Q12HR GT 08/09/19 09:00 11/07/19 08:59 09/17/19 08:08 Minoxidil (Loniten) 5 mg DAILY GT 08/09/19 09:00 11/07/19 08:59 09/17/19 08:08 Sodium Chloride 1,000 ml @ 500 mls/hr Q2H PRN IVLG sbp<90 during hd 09/14/19 09:26 10/14/19 09:25 Zinc Oxide (Zinc Oxide) 1 applic BID TOPIC 08/10/19 18:00 11/08/19 17:59 09/17/19 08:09 Assessment/Plan Assessment/Plan Pulmonary Progress Note Assessment/Plan Assessment/Plan: IMPRESSION: 1. anemia. 2. GI bleed. 3. Leukocytosis. 4. Probable sepsis. + BCX 5. Acute on chronic renal failure. 6. Hyponatremia. 7. Severe protein-calorie malnutrition. 8. Significantly elevated C-reactive protein concerning for infectious etiology. 9. Tracheostomy, G-tube. 10. Ventilator dependence. 11. anasarca with bilateral pleural effusion 12. Hematuria 13. V pacing PLAN needs placement care noted on vent/ no wean surgical follow up monitor labs and adjust RX ID follow up monitor renal function: HD prognosis poor impression, plan, and exam edited and reviewed in detail care discussed with RN Subjective ROS Limited/Unobtainable: Yes Allergies: Coded Allergies: No Known Allergies (Unverified , 06/10/19) Subjective remains ill on vent on HD currently Objective Vital Signs Noted Height (Feet): 5 Height (Inches): 10.00 Weight (Pounds): 155 Objective GENERAL: Ill-appearing male, chronically debilitated. HEENT: Tracheostomy in midline. LUNGS: Coarse breath sounds. reduced breath sounds CARDIAC: S1, S2. Regular rate and rhythm. ABDOMEN: Soft. G-tube. EXTREMITIES: With noted edema. NEUROLOGICAL: Poorly responsive, weak diffusely. Laboratory Tests noted CXR: Some improvement Kenny Mccurdy MD Sep 17, 2019 09:48
--- NOTE | 2019-09-17 10:46 | Nephrology Progress Note ---
Assessment/Plan Problem List: (1) UTI (urinary tract infection) (2) VRE (vancomycin-resistant Enterococci) infection (3) Hyponatremia (4) CKD (chronic kidney disease) stage 5, GFR less than 15 ml/min (5) Malnutrition (6) Anasarca (7) Decubitus skin ulcer (8) Anemia (9) Ventilator dependent (10) Right lower lobe pneumonia Plan seen on dialysis 09/15 cont pulm care HD TTS Subjective ROS Limited/Unobtainable: Yes Objective Objective Last 24 Hour Vital Signs Date Time Temp Pulse Resp B/P (MAP) Pulse Ox O2 Delivery O2 Flow Rate FiO2 09/17/19 09:22 66 12 24 09/17/19 08:08 72 147/77 09/17/19 08:08 147/77 09/17/19 08:00 24 09/17/19 08:00 98.2 72 12 147/77 (100) 99 09/17/19 08:00 Mechanical Ventilator 09/17/19 08:00 73 09/17/19 07:25 73 12 24 09/17/19 04:00 24 09/17/19 04:00 Mechanical Ventilator 09/17/19 04:00 98.5 73 18 125/60 (81) 100 09/17/19 03:53 72 09/17/19 03:26 72 12 24 09/17/19 00:00 98.1 72 18 126/65 (85) 100 09/17/19 00:00 Mechanical Ventilator 09/17/19 00:00 24 09/17/19 00:00 76 09/16/19 23:19 74 12 24 09/16/19 20:02 71 149/91 09/16/19 20:00 24 09/16/19 20:00 Mechanical Ventilator 09/16/19 19:55 98.4 71 18 149/91 (110) 100 09/16/19 19:29 73 09/16/19 19:18 73 12 24 09/16/19 17:50 75 12 24 09/16/19 16:00 24 09/16/19 16:00 Mechanical Ventilator 09/16/19 16:00 86 09/16/19 16:00 98.8 73 19 120/62 (81) 97 09/16/19 14:30 79 12 24 09/16/19 12:30 72 12 24 09/16/19 12:00 Mechanical Ventilator 09/16/19 12:00 24 09/16/19 12:00 97.6 70 17 137/54 (81) 100 09/16/19 11:41 65 Intake and Output 09/16/19 09/17/19 19:00 07:00 Intake Total 750 ml 600 ml Balance 750 ml 600 ml Free Water 150 ml 50 ml Tube Feeding 600 ml 550 ml # Bowel Movements 100 50 Laboratory Tests 09/16/19 22:48: POC Whole Blood Glucose [Pending] 09/17/19 05:28: POC Whole Blood Glucose 162H Height (Feet): 5 Height (Inches): 10.00 Weight (Pounds): 118 General Appearance: alert, confused, other - on vent Cardiovascular: regular rhythm Respiratory/Chest: crackles/rales Abdomen: non tender Extremities: moderate edema Neurologic: unresponsive Carmelo Frank MD Sep 17, 2019 10:46
--- NOTE | 2019-09-17 11:51 | NUR ---
CASE MANAGEMENT: REVIEW 09/16/19 SI: PNA . ESRD on HD . CHRONIC LEUKOCYTOSIS 98.1 68 18 131/62 100% MECH VENT FIO2 24 WBC 16.1 H/H 8.7/29.5 IS: EPOETIN SUBQ QMWF LOPRESSOR GT BID CULTURELLE GT BID LONITEN GT QD NOVOLOG SQ Q6HR HD NEEDED HERMAN-HEX TP QD CHEST X-RAY- Slight interval improvement in previously noted right greater than left infiltrates. Bilateral pleural effusions, little changed. \: 2W STEP DOWN UNIT DCP: PATIENT HAS BEEN ACCEPTED TO [facility] SUBACUTE PLAN: WBC TRENDING DOWN~ CONT TO MONITOR CASE MANAGEMENT: REVIEW 09/17/19 SI: PNA . ESRD on HD . CHRONIC LEUKOCYTOSIS 98.2 72 12 147/77 99% MECH VENT FIO2 24 IS: EPOETIN SUBQ QMWF LOPRESSOR GT BID CULTURELLE GT BID LONITEN GT QD NOVOLOG SQ Q6HR HD NEEDED HERMAN-HEX TP QD \: 2W STEP DOWN UNIT DCP: PATIENT HAS BEEN ACCEPTED TO [facility] SUBACUTE PLAN: F/U WITH [facility] IN AM
--- NOTE | 2019-09-17 11:57 | NUR ---
INSURANCE UPDATED CLINICALS/REVIEW FAXED TO [facility] / [facility] REF# [id number] RIC:HARPER P:[phone] F:[phone]
[2019-09-17 12:00] VITALS: BP 133/62
--- NOTE | 2019-09-17 12:08 | NUR ---
RESPIRATORY NOTE:Pt received on AC 12/+5/ 24% FiO2. Pt is trached w/ a cuffed, Portex 8 trach. Pt obtunded/disoriented. B/S ovi. rhonchi/diminished, sxn small amounts of thick/thin, pale-yellow secretions. Vent plugged into red outlet, ambu bag at bedside. No s/s of distress at this time. Will continue to monitor.
--- NOTE | 2019-09-17 12:18 | Infectious Diseases Prog Note ---
Assessment/Plan Assessment/Plan A: 1. Pneumonia with Klebsiella, pseudomonas & Providencia COVID19 X2 : negative 2. Renal failure,Stage V 3. Leukocytosis improving 4. Respiratory failure, Ventilator dependent 5. Anemia 6. Anasarca 7. 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 Klebsiella catheter infection s/p removal 10. Leukocytosis PLAN: 1. Continue Lactobacillus 2. Repeated CXR: slight improvement Subjective ROS Limited/Unobtainable: Yes Constitutional: Denies: fever Allergies: Coded Allergies: No Known Allergies (Unverified , 06/10/19) Objective Last 24 Hour Vital Signs Date Time Temp Pulse Resp B/P (MAP) Pulse Ox O2 Delivery O2 Flow Rate FiO2 09/17/19 11:29 70 12 24 09/17/19 09:22 66 12 24 09/17/19 08:08 72 147/77 09/17/19 08:08 147/77 09/17/19 08:00 24 09/17/19 08:00 98.2 72 12 147/77 (100) 99 09/17/19 08:00 Mechanical Ventilator 09/17/19 08:00 73 09/17/19 07:25 73 12 24 09/17/19 04:00 24 09/17/19 04:00 Mechanical Ventilator 09/17/19 04:00 98.5 73 18 125/60 (81) 100 09/17/19 03:53 72 09/17/19 03:26 72 12 24 09/17/19 00:00 98.1 72 18 126/65 (85) 100 09/17/19 00:00 Mechanical Ventilator 09/17/19 00:00 24 09/17/19 00:00 76 09/16/19 23:19 74 12 24 09/16/19 20:02 71 149/91 09/16/19 20:00 24 09/16/19 20:00 Mechanical Ventilator 09/16/19 19:55 98.4 71 18 149/91 (110) 100 09/16/19 19:29 73 09/16/19 19:18 73 12 24 09/16/19 17:50 75 12 24 09/16/19 16:00 24 09/16/19 16:00 Mechanical Ventilator 09/16/19 16:00 86 09/16/19 16:00 98.8 73 19 120/62 (81) 97 09/16/19 14:30 79 12 24 09/16/19 12:30 72 12 24 Height (Feet): 5 Height (Inches): 10.00 Weight (Pounds): 118 General Appearance: cachetic HEENT: status post trach Respiratory/Chest: rhonchi - bilaterally, other - on ventilator Cardiovascular: normal rate Abdomen: soft, non tender, other - GT & rectal tube Extremities: no edema Neurologic/Psychiatric: unresponsiveness Musculoskeletal: atrophy Laboratory Tests Test 09/16/19 22:48 09/17/19 05:28 09/17/19 11:04 POC Whole Blood Glucose Pending 162 MG/DL (74-106) H 151 MG/DL (74-106) H Current Medications Medications (Trade) Dose Ordered Sig/Leonel Route PRN Reason Start Time Stop Time Status Last Admin Dose Admin Acetaminophen (Tylenol) 650 mg Q4H PRN GT Mild Pain (Pain Scale 1-3) 09/09/19 00:45 10/09/19 00:44 09/15/19 20:09 Atorvastatin Calcium (Lipitor) 40 mg BEDTIME GT 08/09/19 21:00 11/07/19 20:59 09/16/19 20:02 Chlorhexidine Gluconate (Felipa-Hex 2%) 1 applic DAILY@1999 TOPIC 09/12/19 20:00 12/11/19 19:59 09/16/19 20:02 Clonidine HCl (Catapres Tab) 0.1 mg Q4H PRN GT For High Blood Pressure 09/09/19 12:30 12/08/19 05:29 09/15/19 04:10 Dextrose (Dextrose 50%) 25 ml Q30M PRN IV Hypoglycemia 08/09/19 07:30 11/07/19 07:29 Dextrose (Dextrose 50%) 50 ml Q30M PRN IV Hypoglycemia 08/09/19 07:30 11/07/19 07:29 Epoetin Andreas (Epoetin Andreas(ESRD on dialysis)) 10,000 unit WED-WED-WED SUBQ 08/18/19 21:00 11/16/19 20:59 09/15/19 20:03 Famotidine (Pepcid) 20 mg DAILY GT 08/30/19 09:00 11/28/19 08:59 09/17/19 08:08 Heparin Sodium (Porcine) (Heparin) 1,000 unit POSTHD INJ 09/14/19 09:30 10/29/19 09:29 Insulin Aspart (NovoLOG) Q6HR SUBQ 08/10/19 00:00 11/07/19 11:29 09/17/19 11:07 Lactobacillus Acidophilus (Culturelle) 1 tab TWICE A DAY GT 09/14/19 18:00 12/13/19 17:59 09/17/19 08:08 Metoprolol Tartrate (Lopressor) 200 mg Q12HR GT 08/09/19 09:00 11/07/19 08:59 09/17/19 08:08 Minoxidil (Loniten) 5 mg DAILY GT 08/09/19 09:00 11/07/19 08:59 09/17/19 08:08 Sodium Chloride 1,000 ml @ 500 mls/hr Q2H PRN IVLG sbp<90 during hd 09/14/19 09:26 10/14/19 09:25 Zinc Oxide (Zinc Oxide) 1 applic BID TOPIC 08/10/19 18:00 11/08/19 17:59 09/17/19 08:09 Real De Leon MD Sep 17, 2019 12:18
--- NOTE | 2019-09-17 12:50 | Surgery Progress Note ---
Surgery Progress Note Subjective Procedure Performed Right femoral temporary hemodialysis catheter removal Additional Comments ill appearing no n/v Objective Last 24 Hour Vital Signs Date Time Temp Pulse Resp B/P (MAP) Pulse Ox O2 Delivery O2 Flow Rate FiO2 09/17/19 12:00 97.2 69 12 133/62 (85) 100 09/17/19 12:00 Mechanical Ventilator 09/17/19 12:00 24 09/17/19 11:29 70 12 24 09/17/19 09:22 66 12 24 09/17/19 08:08 72 147/77 09/17/19 08:08 147/77 09/17/19 08:00 24 09/17/19 08:00 98.2 72 12 147/77 (100) 99 09/17/19 08:00 Mechanical Ventilator 09/17/19 08:00 73 09/17/19 07:25 73 12 24 09/17/19 04:00 24 09/17/19 04:00 Mechanical Ventilator 09/17/19 04:00 98.5 73 18 125/60 (81) 100 09/17/19 03:53 72 09/17/19 03:26 72 12 24 09/17/19 00:00 98.1 72 18 126/65 (85) 100 09/17/19 00:00 Mechanical Ventilator 09/17/19 00:00 24 09/17/19 00:00 76 09/16/19 23:19 74 12 24 09/16/19 20:02 71 149/91 09/16/19 20:00 24 09/16/19 20:00 Mechanical Ventilator 09/16/19 19:55 98.4 71 18 149/91 (110) 100 09/16/19 19:29 73 09/16/19 19:18 73 12 24 09/16/19 17:50 75 12 24 09/16/19 16:00 24 09/16/19 16:00 Mechanical Ventilator 09/16/19 16:00 86 09/16/19 16:00 98.8 73 19 120/62 (81) 97 09/16/19 14:30 79 12 24 I&O Intake and Output 09/16/19 09/17/19 19:00 07:00 Intake Total 750 ml 600 ml Balance 750 ml 600 ml Free Water 150 ml 50 ml Tube Feeding 600 ml 550 ml # Bowel Movements 100 50 Dressing: other Wound: other Drains: other Cardiovascular: RSR Respiratory: decreased breath sounds Abdomen: soft, non-tender, present bowel sounds Extremities: no cyanosis Laboratory Tests Test 09/16/19 22:48 09/17/19 05:28 09/17/19 11:04 POC Whole Blood Glucose Pending 162 MG/DL (74-106) H 151 MG/DL (74-106) H Plan Problems: (1) Anemia (2) Hyponatremia (3) Leukocytosis Assessment & Plan: Tracheostomy, left chest pacemaker are again demonstrated. There is bilateral interstitial and airspace disease and bilateral pleural fluid again demonstrated. This appears more severe than on the prior study. Bilateral interstitial and airspace infiltrates versus edema. Bilateral pleural effusions Leukocytosis, anemia, tachycardia, abnormal labs. Wound evaluated and likely etiology of patient's sepsis. Leukocytosis etiology work-up antibiotics per infectious disease Appreciate nephrology input transfuse with dialysis We will follow with recommendations thank you allowing participation's care plan HD access temp HD discussed with medical teams line okay HD as per renal persistent leukocytosis flow cyto noted improving trending down right fem line removed (4) Ventilator dependent (5) Right lower lobe pneumonia (6) Hypokalemia (7) Hyperkalemia (8) Anasarca (9) Decubitus skin ulcer Assessment & Plan: pt presented on admission with generalized edemae.Skin assessed under tracheostomy and no areas of concerns noted. GT Insertion is marginally erythematous with small amt slough at stoma. Unstageable Pressure Injury R elbow. Base of wound is 100% yellow slough, Borders are erythematous. Wound oozing small amt haemopurulent exudate.Darker skin tone without elevation in skin temp or erythema periwound. Pt's penis and scrotum are grossly edematous and enlarged and weeping serous exudate from numerous sites both from penis and scrotum. Two small open wounds noted at base of at base of shaft of penis ,and contreras aspect of scrotum. Both wounds oozing large amt sanguineous and serosanguineous exudate. Multiple open wounds with Biofilm at base of each wounds noted to contreras/lateral,inferior and posterior aspects of scrotum. These wounds noted to be oozing moderate amts of serosanguineous exudate. Hypertrophic scar with scattered areas of hyperpigmentation noted to Sacrum. DTPI noted to L Buttocks (L)7cm x (W)9cm. Base of wound is purple and indurated.Darker skin tone without erythema, induration or fluctuance R and L ischial tuberosities. Both heels are boggy with non-blanchable erythema. Tx.Plan: Cleanse wound R elbow with Saline. Apply TheraHoney, Apply Moisture Barrier Paste periwound. Cover with Optifoam drsg.Change Daily and prn. Wash GT site with soap and water.Pat dry. Apply Zinc Oxide Paste to GT site Daily. Leave Open to Air. Apply Zinc Oxide Paste to entire Scrotum, Place ABD pads to R and L lateral, and posterior aspects of scrotum TWICE daily. Apply Cavilon Skin Barrier to malleoli and both Heels. Cover each site with Optifoam drsgs. Change every 7 days and prn. Reposition at least every 2hours or as tolerated. Off-load heels with Pillows. APM/BECCA Mattress overlay. (10) Malnutrition Assessment & Plan: DAILY ESTIMATED NEEDS: Needs based on Renal, critical care, wound/ 61kg 22-30 kcals/kg [id number] total kcals 1.25-2 g protein/kg 76-122 g total protein Fluid per MD, now on HD NUTRITION DIAGNOSIS: * Swallowing difficulty R/T respiratory failure, dysphagia as evidenced by trach/vent dep, PEG dep * Increased kcal/prot needs R/T wound healing as evidenced by admitted w/ multiple pressure injuries including full thickness wounds at junction of Shaft of penis, dorsal scrotum, R elbow, and DTPI @ L buttocks. CURRENT TF:Vital AF 1.2 @ 50ml/hr x 24 hrs + Garo BID ENTERAL NUTRITION RECOMMENDATIONS: Vital AF 1.2 @ 50ml/hr x 24 hrs to provide 1200ml, 1440kcal,9 0g prot, 973ml free water * Maintain elemental TF of Vital AF 1.2 w/ continued diarrhea -> monitor lytes and renal fxn closely, monitor need for renal T -> TF @ goal will provide 1642mg K and 2025mg Phos * HOB over 30 degrees/ water flush per MD * Continue Garo BID via PEG ADDITIONAL RECOMMENDATIONS: * Per SNF: HT=63" FI=749 lbs (vs EMR wt of 166lbs) -> obtain re-calibrated bedscale wt, rec daily wt monitoring * Wound healing: con't Nephrovite + Garo BID/ Vit C dosing per Nephro * Monitor renal fxn and lytes closely w/ non-renal TF - previously w/ multiple episodes of low K and phos - Check f/up phos (1. 0on 09/04) * Add probiotics and anti-diarrheal meds - prolonged diarrhea, +rectal tube (11) Uremia (12) CKD (chronic kidney disease) stage 5, GFR less than 15 ml/min (13) Colon distention Assessment & Plan: discussed with GI likely functional as having lots of loose bm rectal tube kub f/u s/p colonoscopy - findings reviewed with GI Marked distention of the sigmoid colon. 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 No evidence of bowel wall thickening or pneumatosis 12 mm focus of contrast enhancement in the right pectineus muscle. While nonspecific in appearance, appearance raises concern for a possible pseudoaneurysm. Ill- defined thickening of the pectus medius muscle could indicate some intramuscular hemorrhage. The above findings were phoned to Dr. Urias at the time of interpretation Large bilateral pleural effusions Hazy pulmonary parenchymal opacities as well as dense consolidative opacities most likely represent pulmonary edema, but could represent pneumonia Evidence of anasarca elsewhere, with generalized edema of the subcutaneous fat Bladder wall thickening, raises concern for cystitis. Avalos catheter in place Colonic diverticulosis. No evidence of diverticulitis. Tracheostomy Pacemaker Gastrostomy Jonathan Urias Sep 17, 2019 12:50
[2019-09-17 16:00] VITALS: BP 154/66
--- NOTE | 2019-09-17 19:20 | NUR ---
NURSE NOTES: Received report from May DAVEY/ TAMICA Rob. Patient asleep, afebrile and no respiratory distress. V paced on 5 lead cardiac monitor technician. On [facility] vent Portex 8, ac 12, TV 550, FiO2 24%, peep 5. With Left FA 22g IV line intact, patent and asymptomatic. With Right subclavian permacath intact, clean and asymptomatic. On Vital AF 50cc/hr via GT intact and infusing well. Needs were attended. HOB elevated. Bed rails are up and wheels are locked. Call light within reach. Continue plan of care.
--- NOTE | 2019-09-17 19:24 | NUR ---
NURSE HAND-OFF REPORT: Important Events on Shift:na Patient Status: stable , pending placement Diet: Vital AF @ 50ml/h Pending Orders: na Pending Results/Labs:na Pending MD notification:na Latest Vital Signs: Temperature 98.3 , Pulse 76 , B/P 154 /66 , Respiratory Rate 13 , O2 SAT 100 , Mechanical Ventilator, O2 Flow Rate 15.0 . Vital Sign Comment: stable EKG Rhythm: V-Paced Rhythm change?: N MD Notified?: N - MD Response: na Latest Delacruz Fall Score: 70 Fall Risk: High Risk Safety Measures: Call light Within Reach, Bed Alarm Zone 2, Side Rails Side Rails x3, Bed position Low and Locked. Fall Precautions: Yellow Socks Yellow Gown Door Sign Patient Fall Education Report given to TAMICA SIM.
[2019-09-17 20:00] VITALS: BP 136/66
[2019-09-17] MEDS: Dyna-Hex 2% Top Sol 2oz TOPIC SCH (21:22)
[2019-09-17] MEDS: Atorvastatin 20mg tab GT SCH (21:22)
[2019-09-18] VITALS: BP 150/71
[2019-09-18] MEDS: NovoLOG Insulin Flexpen SUBQ SCH ×5 (00:04→23:34)
[2019-09-18 04:00] VITALS: BP 128/57
--- NOTE | 2019-09-18 07:20 | NUR ---
NURSE NOTES: Received report from ORNEY RN. Patient in bed resting, no active s/s cardiac, respiratory distress noticed at this time. Patient V-paced HR 69. Trach to vent Portex 8 AC 12 TV 550 Fio2 24% PEEP 5. GT running vital AF @ 50ml/h. IV on right FA 18G, asymptomatic, patent, intact. Bed in lowest position, side rails upx3, call light within reach, bed alarm on, Will continue to monitor. Rectal tube draining well to gravity. Per Dr. Ramirez order CBC BMP, order noted, entered, carried out. Will continue to monitor.
--- NOTE | 2019-09-18 07:30 | NUR ---
NURSE HAND-OFF REPORT: Important Events on Shift: Patient Status: Stabble Diet: GT on Vital AF 1.2 at 50cc/hr Pending Orders: none Pending Results/Labs:none Pending MD notification:none Latest Vital Signs: Temperature 98.6 , Pulse 67 , B/P 128 /57 , Respiratory Rate 12 , O2 SAT 100 , Mechanical Ventilator, O2 Flow Rate 15.0 . Vital Sign Comment: EKG Rhythm: V-Paced Rhythm change?: N MD Notified?: N - MD Response: Latest Delacruz Fall Score: 70 Fall Risk: High Risk Safety Measures: Call light Within Reach, Bed Alarm Zone 2, Side Rails Side Rails x3, Bed position Low and Locked. Fall Precautions: Yellow Socks Yellow Gown Door Sign Patient Fall Education Report given to TAMICA العلي.
[2019-09-18 08:00] VITALS: BP 143/59
--- NOTE | 2019-09-18 08:58 | General Progress Note ---
Assessment/Plan Assessment/Plan: IMPRESSION: 1. anemia. 2. GI bleed. 3. Leukocytosis. 4. Probable sepsis. + BCX 5. Acute on chronic renal failure. 6. Hyponatremia. 7. Severe protein-calorie malnutrition. 8. Significantly elevated C-reactive protein concerning for infectious etiology. 9. Tracheostomy, G-tube. 10. Ventilator dependence. 11. anasarca with bilateral pleural effusion 12. Hematuria 13. V pacing PLAN needs placement care noted on vent/ no wean surgical follow up monitor labs and adjust RX ID follow up monitor renal function: HD prognosis poor impression, plan, and exam edited and reviewed in detail care discussed with RN Subjective Allergies: Coded Allergies: No Known Allergies (Unverified , 06/10/19) Subjective remains ill on vent on HD Objective Last 24 Hour Vital Signs Date Time Temp Pulse Resp B/P (MAP) Pulse Ox O2 Delivery O2 Flow Rate FiO2 09/18/19 08:00 98.1 69 12 143/59 (87) 100 09/18/19 07:25 73 12 24 09/18/19 05:02 67 12 24 09/18/19 04:00 Mechanical Ventilator 09/18/19 04:00 24 09/18/19 04:00 98.6 66 12 128/57 (80) 100 09/18/19 03:35 66 09/18/19 03:10 67 12 24 09/18/19 01:30 75 12 24 09/18/19 00:00 Mechanical Ventilator 09/18/19 00:00 98.2 77 12 150/71 (97) 100 09/17/19 23:30 77 09/17/19 23:30 76 14 24 09/17/19 21:22 75 136/66 09/17/19 20:45 75 14 24 09/17/19 20:00 24 09/17/19 20:00 97.2 75 12 136/66 (89) 100 09/17/19 20:00 Mechanical Ventilator 09/17/19 19:30 80 14 24 09/17/19 19:03 74 09/17/19 17:29 76 13 24 09/17/19 16:00 24 09/17/19 16:00 83 09/17/19 16:00 Mechanical Ventilator 09/17/19 16:00 98.3 73 12 154/66 (95) 100 8/9/20 15:00 72 12 24 09/17/19 13:21 70 12 24 09/17/19 12:00 97.2 69 12 133/62 (85) 100 09/17/19 12:00 Mechanical Ventilator 09/17/19 12:00 24 09/17/19 12:00 69 09/17/19 11:29 70 12 24 09/17/19 09:22 66 12 24 Intake and Output 09/17/19 09/18/19 19:00 07:00 Intake Total 640 ml 550 ml Output Total 100 ml 150 ml Balance 540 ml 400 ml Free Water 90 ml Tube Feeding 550 ml 550 ml Stool Total 100 ml 150 ml Laboratory Tests 09/17/19 11:04: POC Whole Blood Glucose 151H 09/17/19 16:13: POC Whole Blood Glucose 150H 09/17/19 23:52: POC Whole Blood Glucose 150H 09/18/19 05:20: POC Whole Blood Glucose 152H Height (Feet): 5 Height (Inches): 10.00 Weight (Pounds): 117 Objective GENERAL: Ill-appearing male, chronically debilitated. HEENT: Tracheostomy in midline. Questionable fullness in the submandibular region. LUNGS: Coarse breath sounds. reduced breath sounds CARDIAC: S1, S2. Regular rate and rhythm. ABDOMEN: Soft. G-tube. EXTREMITIES: With noted edema. NEUROLOGICAL: Poorly responsive, weak diffusely. Kain Ramirez MD Sep 18, 2019 08:58
[2019-09-18] MEDS: Minoxidil 2.5mg tab GT SCH (08:59)
[2019-09-18] MEDS: Metoprolol Tartrate 100mg tab GT SCH ×2 (08:59→20:34)
[2019-09-18] MEDS: Zinc Oxide Oint 2oz TOPIC SCH ×2 (08:59→17:09)
[2019-09-18] MEDS: Lactobacillus-GG tablet GT SCH ×2 (08:59→17:14)
[2019-09-18 09:56] LABS: BASOPHILS % (AUTO) 0.9 % (0.0-2.0); EOSINOPHILS % (AUTO) 13.2 % (0.0-3.0); HEMATOCRIT 29.3 % (42.0-52.0); HEMOGLOBIN 8.7 G/DL (14.2-18.0); LYMPHOCYTES % (AUTO) 16.3 % (20.0-45.0); MEAN CORPUSCULAR VOLUME 86 FL (80-99); MONOCYTES % (AUTO) 7.5 % (1.0-10.0); NEUTROPHILS % (AUTO) 62.1 % (45.0-75.0); PLATELET COUNT 375 K/UL (150-450); RED CELL DISTRIBUTION WIDTH 18.8 % (11.6-14.8); WHITE BLOOD COUNT 16.4 K/UL (4.8-10.8)
[2019-09-18 10:06] LABS: ANION GAP 8 mmol/L (5-15); BLOOD UREA NITROGEN 72 mg/dL (7-18); CALCIUM 9.1 MG/DL (8.5-10.1); CARBON DIOXIDE 32 MMOL/L (21-32); CHLORIDE 105 MMOL/L (98-107); CREATININE 3.8 MG/DL (0.55-1.30); POTASSIUM 3.6 MMOL/L (3.5-5.1); SODIUM 145 MMOL/L (136-145)
--- NOTE | 2019-09-18 11:31 | Infectious Diseases Prog Note ---
Assessment/Plan Assessment/Plan antibiotics : none A 1. klebsiella catheter infection s/p rx 2. respiratory failure 3. leucocytosis improving 4. klebsiella, pseudomonas, providencia pneumonia s/p rx COVID 19 test negative x 2 5. renal failure on HD P 1. observe off antibiotics 2. will follow up cultures Subjective ROS Limited/Unobtainable: Yes Allergies: Coded Allergies: No Known Allergies (Unverified , 06/10/19) Objective Last 24 Hour Vital Signs Date Time Temp Pulse Resp B/P (MAP) Pulse Ox O2 Delivery O2 Flow Rate FiO2 09/18/19 10:50 66 12 24 09/18/19 09:01 64 12 24 09/18/19 08:59 67 143/59 09/18/19 08:59 143/59 09/18/19 08:00 68 09/18/19 08:00 98.1 69 12 143/59 (87) 100 09/18/19 08:00 Mechanical Ventilator 09/18/19 08:00 24 09/18/19 07:25 73 12 24 09/18/19 05:02 67 12 24 09/18/19 04:00 Mechanical Ventilator 09/18/19 04:00 24 09/18/19 04:00 98.6 66 12 128/57 (80) 100 09/18/19 03:35 66 09/18/19 03:10 67 12 24 09/18/19 01:30 75 12 24 09/18/19 00:00 Mechanical Ventilator 09/18/19 00:00 98.2 77 12 150/71 (97) 100 09/17/19 23:30 77 09/17/19 23:30 76 14 24 09/17/19 21:22 75 136/66 09/17/19 20:45 75 14 24 09/17/19 20:00 24 09/17/19 20:00 97.2 75 12 136/66 (89) 100 09/17/19 20:00 Mechanical Ventilator 09/17/19 19:30 80 14 24 09/17/19 19:03 74 09/17/19 17:29 76 13 24 09/17/19 16:00 24 09/17/19 16:00 83 09/17/19 16:00 Mechanical Ventilator 09/17/19 16:00 98.3 73 12 154/66 (95) 100 09/17/19 15:00 72 12 24 8/9/20 13:21 70 12 24 09/17/19 12:00 97.2 69 12 133/62 (85) 100 09/17/19 12:00 Mechanical Ventilator 09/17/19 12:00 24 09/17/19 12:00 69 Height (Feet): 5 Height (Inches): 10.00 Weight (Pounds): 117 HEENT: status post trach Respiratory/Chest: lungs clear Cardiovascular: normal rate, regular rhythm, no gallop/murmur Abdomen: soft, non tender, other - GT Extremities: no edema, other - right subclavian Laboratory Tests Test 09/17/19 16:13 09/17/19 23:52 09/18/19 05:20 09/18/19 09:40 POC Whole Blood Glucose 150 MG/DL (74-106) H 150 MG/DL (74-106) H 152 MG/DL (74-106) H White Blood Count 16.4 K/UL (4.8-10.8) H Red Blood Count 3.40 M/UL (4.70-6.10) L Hemoglobin 8.7 G/DL (14.2-18.0) L Hematocrit 29.3 % (42.0-52.0) L Mean Corpuscular Volume 86 FL (80-99) Mean Corpuscular Hemoglobin 25.6 PG (27.0-31.0) L Mean Corpuscular Hemoglobin Concent 29.7 G/DL (32.0-36.0) L Red Cell Distribution Width 18.8 % (11.6-14.8) H Platelet Count 375 K/UL (150-450) Mean Platelet Volume 6.0 FL (6.5-10.1) L Neutrophils (%) (Auto) 62.1 % (45.0-75.0) Lymphocytes (%) (Auto) 16.3 % (20.0-45.0) L Monocytes (%) (Auto) 7.5 % (1.0-10.0) Eosinophils (%) (Auto) 13.2 % (0.0-3.0) H Basophils (%) (Auto) 0.9 % (0.0-2.0) Sodium Level 145 MMOL/L (136-145) Potassium Level 3.6 MMOL/L (3.5-5.1) Chloride Level 105 MMOL/L (98-107) Carbon Dioxide Level 32 MMOL/L (21-32) Anion Gap 8 mmol/L (5-15) Blood Urea Nitrogen 72 mg/dL (7-18) H Creatinine 3.8 MG/DL (0.55-1.30) H Estimat Glomerular Filtration Rate 15.5 mL/min (>60) Glucose Level 163 MG/DL (74-106) H Calcium Level 9.1 MG/DL (8.5-10.1) Test 09/18/19 11:14 POC Whole Blood Glucose 156 MG/DL (74-106) H Current Medications Medications (Trade) Dose Ordered Sig/Leonel Route PRN Reason Start Time Stop Time Status Last Admin Dose Admin Acetaminophen (Tylenol) 650 mg Q4H PRN GT Mild Pain (Pain Scale 1-3) 09/09/19 00:45 10/09/19 00:44 09/15/19 20:09 Atorvastatin Calcium (Lipitor) 40 mg BEDTIME GT 08/09/19 21:00 11/07/19 20:59 09/17/19 21:22 Chlorhexidine Gluconate (Felipa-Hex 2%) 1 applic DAILY@1999 TOPIC 09/12/19 20:00 12/11/19 19:59 09/17/19 21:22 Clonidine HCl (Catapres Tab) 0.1 mg Q4H PRN GT For High Blood Pressure 09/09/19 12:30 12/08/19 05:29 09/15/19 04:10 Dextrose (Dextrose 50%) 25 ml Q30M PRN IV Hypoglycemia 08/09/19 07:30 11/07/19 07:29 Dextrose (Dextrose 50%) 50 ml Q30M PRN IV Hypoglycemia 08/09/19 07:30 11/07/19 07:29 Epoetin Andreas (Epoetin Andreas(ESRD on dialysis)) 10,000 unit WED-WED-WED SUBQ 08/18/19 21:00 11/16/19 20:59 09/15/19 20:03 Famotidine (Pepcid) 20 mg DAILY GT 08/30/19 09:00 11/28/19 08:59 09/18/19 08:59 Heparin Sodium (Porcine) (Heparin) 1,000 unit POSTHD INJ 09/14/19 09:30 10/29/19 09:29 Insulin Aspart (NovoLOG) Q6HR SUBQ 08/10/19 00:00 11/07/19 11:29 09/18/19 11:16 Lactobacillus Acidophilus (Culturelle) 1 tab TWICE A DAY GT 09/14/19 18:00 12/13/19 17:59 09/18/19 08:59 Metoprolol Tartrate (Lopressor) 200 mg Q12HR GT 08/09/19 09:00 11/07/19 08:59 09/18/19 08:59 Minoxidil (Loniten) 5 mg DAILY GT 08/09/19 09:00 11/07/19 08:59 09/18/19 08:59 Sodium Chloride 1,000 ml @ 500 mls/hr Q2H PRN IVLG sbp<90 during hd 09/14/19 09:26 10/14/19 09:25 Zinc Oxide (Zinc Oxide) 1 applic BID TOPIC 08/10/19 18:00 11/08/19 17:59 09/18/19 08:59 Farnaz Lyle MD Sep 18, 2019 11:31
--- NOTE | 2019-09-18 12:12 | Nephrology Progress Note ---
Assessment/Plan Plan Smoldering Sepsis - IV Abx Established ESRD - HD now TTS. Subjective Subjective Obtunded. Objective Objective Last 24 Hour Vital Signs Date Time Temp Pulse Resp B/P (MAP) Pulse Ox O2 Delivery O2 Flow Rate FiO2 09/18/19 10:50 66 12 24 09/18/19 09:01 64 12 24 09/18/19 08:59 67 143/59 09/18/19 08:59 143/59 09/18/19 08:00 68 09/18/19 08:00 98.1 69 12 143/59 (87) 100 09/18/19 08:00 Mechanical Ventilator 09/18/19 08:00 24 09/18/19 07:25 73 12 24 09/18/19 05:02 67 12 24 09/18/19 04:00 Mechanical Ventilator 09/18/19 04:00 24 09/18/19 04:00 98.6 66 12 128/57 (80) 100 09/18/19 03:35 66 09/18/19 03:10 67 12 24 09/18/19 01:30 75 12 24 09/18/19 00:00 Mechanical Ventilator 09/18/19 00:00 98.2 77 12 150/71 (97) 100 09/17/19 23:30 77 09/17/19 23:30 76 14 24 09/17/19 21:22 75 136/66 09/17/19 20:45 75 14 24 09/17/19 20:00 24 09/17/19 20:00 97.2 75 12 136/66 (89) 100 09/17/19 20:00 Mechanical Ventilator 09/17/19 19:30 80 14 24 09/17/19 19:03 74 09/17/19 17:29 76 13 24 09/17/19 16:00 24 09/17/19 16:00 83 09/17/19 16:00 Mechanical Ventilator 09/17/19 16:00 98.3 73 12 154/66 (95) 100 09/17/19 15:00 72 12 24 09/17/19 13:21 70 12 24 Intake and Output 09/17/19 09/18/19 19:00 07:00 Intake Total 640 ml 550 ml Output Total 100 ml 150 ml Balance 540 ml 400 ml Free Water 90 ml Tube Feeding 550 ml 550 ml Stool Total 100 ml 150 ml Laboratory Tests 09/17/19 16:13: POC Whole Blood Glucose 150H 09/17/19 23:52: POC Whole Blood Glucose 150H 09/18/19 05:20: POC Whole Blood Glucose 152H 09/18/19 09:40: White Blood Count 16.4H, Red Blood Count 3.40L, Hemoglobin 8.7L, Hematocrit 29.3L, Mean Corpuscular Volume 86, Mean Corpuscular Hemoglobin 25.6L, Mean Corpuscular Hemoglobin Concent 29.7L, Red Cell Distribution Width 18.8H, Platelet Count 375, Mean Platelet Volume 6.0L, Neutrophils (%) (Auto) 62.1, Lymphocytes (%) (Auto) 16.3L, Monocytes (%) (Auto) 7.5, Eosinophils (%) (Auto) 13.2H, Basophils (%) (Auto) 0.9, Sodium Level 145, Potassium Level 3.6, Chloride Level 105, Carbon Dioxide Level 32, Anion Gap 8, Blood Urea Nitrogen 72H, Creatinine 3.8H, Estimat Glomerular Filtration Rate 15.5, Glucose Level 163H, Calcium Level 9.1 09/18/19 11:14: POC Whole Blood Glucose 156H Height (Feet): 5 Height (Inches): 10.00 Weight (Pounds): 117 Objective CV RR Trach clean Lungs CTA New Perma Cath RIJ. Old Femoral Rancho still in Rt. Groin! Abd SNT. BS + E No CCE Erica Pichardo MD Sep 18, 2019 12:12
[2019-09-18 12:40] VITALS: BP 135/57
--- NOTE | 2019-09-18 13:25 | NUR ---
NURSE NOTES: Called [facility] nephrology tele : [phone] , spoke with Reyes and informed patient schedule for HD tomorrow 09/19/[address] Pichardo.
--- NOTE | 2019-09-18 14:16 | Surgery Progress Note ---
Surgery Progress Note Subjective Procedure Performed Right femoral temporary hemodialysis catheter removal Additional Comments no acute events comfortable stable no complaints no n/v/f/c labs noted Objective Last 24 Hour Vital Signs Date Time Temp Pulse Resp B/P (MAP) Pulse Ox O2 Delivery O2 Flow Rate FiO2 09/18/19 13:25 65 12 24 09/18/19 12:40 98.4 64 12 135/57 (83) 100 09/18/19 12:00 24 09/18/19 12:00 65 09/18/19 12:00 Mechanical Ventilator 09/18/19 10:50 66 12 24 09/18/19 09:01 64 12 24 09/18/19 08:59 67 143/59 09/18/19 08:59 143/59 09/18/19 08:00 68 09/18/19 08:00 98.1 69 12 143/59 (87) 100 09/18/19 08:00 Mechanical Ventilator 09/18/19 08:00 24 09/18/19 07:25 73 12 24 09/18/19 05:02 67 12 24 09/18/19 04:00 Mechanical Ventilator 09/18/19 04:00 24 09/18/19 04:00 98.6 66 12 128/57 (80) 100 09/18/19 03:35 66 09/18/19 03:10 67 12 24 09/18/19 01:30 75 12 24 09/18/19 00:00 Mechanical Ventilator 09/18/19 00:00 98.2 77 12 150/71 (97) 100 09/17/19 23:30 77 09/17/19 23:30 76 14 24 09/17/19 21:22 75 136/66 09/17/19 20:45 75 14 24 09/17/19 20:00 24 09/17/19 20:00 97.2 75 12 136/66 (89) 100 09/17/19 20:00 Mechanical Ventilator 09/17/19 19:30 80 14 24 09/17/19 19:03 74 09/17/19 17:29 76 13 24 09/17/19 16:00 24 09/17/19 16:00 83 09/17/19 16:00 Mechanical Ventilator 09/17/19 16:00 98.3 73 12 154/66 (95) 100 09/17/19 15:00 72 12 24 I&O Intake and Output 09/17/19 09/18/19 19:00 07:00 Intake Total 640 ml 550 ml Output Total 100 ml 150 ml Balance 540 ml 400 ml Free Water 90 ml Tube Feeding 550 ml 550 ml Stool Total 100 ml 150 ml Dressing: other Wound: other Cardiovascular: RSR Respiratory: decreased breath sounds Abdomen: soft, present bowel sounds Extremities: no cyanosis Laboratory Tests Test 09/17/19 16:13 09/17/19 23:52 09/18/19 05:20 09/18/19 09:40 POC Whole Blood Glucose 150 MG/DL (74-106) H 150 MG/DL (74-106) H 152 MG/DL (74-106) H White Blood Count 16.4 K/UL (4.8-10.8) H Red Blood Count 3.40 M/UL (4.70-6.10) L Hemoglobin 8.7 G/DL (14.2-18.0) L Hematocrit 29.3 % (42.0-52.0) L Mean Corpuscular Volume 86 FL (80-99) Mean Corpuscular Hemoglobin 25.6 PG (27.0-31.0) L Mean Corpuscular Hemoglobin Concent 29.7 G/DL (32.0-36.0) L Red Cell Distribution Width 18.8 % (11.6-14.8) H Platelet Count 375 K/UL (150-450) Mean Platelet Volume 6.0 FL (6.5-10.1) L Neutrophils (%) (Auto) 62.1 % (45.0-75.0) Lymphocytes (%) (Auto) 16.3 % (20.0-45.0) L Monocytes (%) (Auto) 7.5 % (1.0-10.0) Eosinophils (%) (Auto) 13.2 % (0.0-3.0) H Basophils (%) (Auto) 0.9 % (0.0-2.0) Sodium Level 145 MMOL/L (136-145) Potassium Level 3.6 MMOL/L (3.5-5.1) Chloride Level 105 MMOL/L (98-107) Carbon Dioxide Level 32 MMOL/L (21-32) Anion Gap 8 mmol/L (5-15) Blood Urea Nitrogen 72 mg/dL (7-18) H Creatinine 3.8 MG/DL (0.55-1.30) H Estimat Glomerular Filtration Rate 15.5 mL/min (>60) Glucose Level 163 MG/DL (74-106) H Calcium Level 9.1 MG/DL (8.5-10.1) Test 09/18/19 11:14 POC Whole Blood Glucose 156 MG/DL (74-106) H Plan Problems: (1) Anemia (2) Hyponatremia (3) Leukocytosis Assessment & Plan: Tracheostomy, left chest pacemaker are again demonstrated. There is bilateral interstitial and airspace disease and bilateral pleural fluid again demonstrated. This appears more severe than on the prior study. Bilateral interstitial and airspace infiltrates versus edema. Bilateral pleural effusions Leukocytosis, anemia, tachycardia, abnormal labs. Wound evaluated and likely etiology of patient's sepsis. Leukocytosis etiology work-up antibiotics per infectious disease Appreciate nephrology input transfuse with dialysis We will follow with recommendations thank you allowing participation's care plan HD access temp HD discussed with medical teams line okay HD as per renal persistent leukocytosis flow cyto noted improving trending down right fem line removed (4) Ventilator dependent (5) Right lower lobe pneumonia (6) Hypokalemia (7) Hyperkalemia (8) Anasarca (9) Decubitus skin ulcer Assessment & Plan: pt presented on admission with generalized edemae.Skin assessed under tracheostomy and no areas of concerns noted. GT Insertion is marginally erythematous with small amt slough at stoma. Unstageable Pressure Injury R elbow. Base of wound is 100% yellow slough, Borders are erythematous. Wound oozing small amt haemopurulent exudate.Darker skin tone without elevation in skin temp or erythema periwound. Pt's penis and scrotum are grossly edematous and enlarged and weeping serous exudate from numerous sites both from penis and scrotum. Two small open wounds noted at base of at base of shaft of penis ,and contreras aspect of scrotum. Both wounds oozing large amt sanguineous and serosanguineous exudate. Multiple open wounds with Biofilm at base of each wounds noted to contreras/lateral,inferior and posterior aspects of scrotum. These wounds noted to be oozing moderate amts of serosanguineous exudate. Hypertrophic scar with scattered areas of hyperpigmentation noted to Sacrum. DTPI noted to L Buttocks (L)7cm x (W)9cm. Base of wound is purple and indurated.Darker skin tone without erythema, induration or fluctuance R and L ischial tuberosities. Both heels are boggy with non-blanchable erythema. Tx.Plan: Cleanse wound R elbow with Saline. Apply TheraHoney, Apply Moisture Barrier Paste periwound. Cover with Optifoam drsg.Change Daily and prn. Wash GT site with soap and water.Pat dry. Apply Zinc Oxide Paste to GT site Daily. Leave Open to Air. Apply Zinc Oxide Paste to entire Scrotum, Place ABD pads to R and L lateral, and posterior aspects of scrotum TWICE daily. Apply Cavilon Skin Barrier to malleoli and both Heels. Cover each site with Optifoam drsgs. Change every 7 days and prn. Reposition at least every 2hours or as tolerated. Off-load heels with Pillows. APM/BECCA Mattress overlay. (10) Malnutrition Assessment & Plan: DAILY ESTIMATED NEEDS: Needs based on Renal, critical care, wound/ 61kg 22-30 kcals/kg 6763-1899 total kcals 1.25-2 g protein/kg 76-122 g total protein Fluid per MD, now on HD NUTRITION DIAGNOSIS: * Swallowing difficulty R/T respiratory failure, dysphagia as evidenced by trach/vent dep, PEG dep * Increased kcal/prot needs R/T wound healing as evidenced by admitted w/ multiple pressure injuries including full thickness wounds at junction of Shaft of penis, dorsal scrotum, R elbow, and DTPI @ L buttocks. CURRENT TF:Vital AF 1.2 @ 50ml/hr x 24 hrs + Garo BID ENTERAL NUTRITION RECOMMENDATIONS: Vital AF 1.2 @ 50ml/hr x 24 hrs to provide 1200ml, 1440kcal,9 0g prot, 973ml free water * Maintain elemental TF of Vital AF 1.2 w/ continued diarrhea -> monitor lytes and renal fxn closely, monitor need for renal T -> TF @ goal will provide 1642mg K and 2025mg Phos * HOB over 30 degrees/ water flush per MD * Continue Garo BID via PEG ADDITIONAL RECOMMENDATIONS: * Per SNF: HT=63" DI=712 lbs (vs EMR wt of 166lbs) -> obtain re-calibrated bedscale wt, rec daily wt monitoring * Wound healing: con't Nephrovite + Garo BID/ Vit C dosing per Nephro * Monitor renal fxn and lytes closely w/ non-renal TF - previously w/ multiple episodes of low K and phos - Check f/up phos (1. 0on 09/04) * Add probiotics and anti-diarrheal meds - prolonged diarrhea, +rectal tube (11) Uremia (12) CKD (chronic kidney disease) stage 5, GFR less than 15 ml/min (13) Colon distention Assessment & Plan: discussed with GI likely functional as having lots of loose bm rectal tube kub f/u s/p colonoscopy - findings reviewed with GI Marked distention of the sigmoid colon. 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 No evidence of bowel wall thickening or pneumatosis 12 mm focus of contrast enhancement in the right pectineus muscle. While nonspecific in appearance, appearance raises concern for a possible pseudoaneurysm. Ill- defined thickening of the pectus medius muscle could indicate some intramuscular hemorrhage. The above findings were phoned to Dr. Urias at the time of interpretation Large bilateral pleural effusions Hazy pulmonary parenchymal opacities as well as dense consolidative opacities most likely represent pulmonary edema, but could represent pneumonia Evidence of anasarca elsewhere, with generalized edema of the subcutaneous fat Bladder wall thickening, raises concern for cystitis. Avalos catheter in place Colonic diverticulosis. No evidence of diverticulitis. Tracheostomy Pacemaker Gastrostomy Jonathan Urias Sep 18, 2019 14:16
--- NOTE | 2019-09-18 15:07 | NUR ---
NURSE NOTES:WOUND CARE FOLLOW-UP NOTES: Wound assessment completed with Primary nurse in attendance. R elbow wound resolving (L)0.8cm x (W)0.7cm. Dry, pink epithelial noted at base of wound. Surrounding hyperpigmentation. Full thickness wound At base of shaft of penis (L)1.3cm x (W)2.2cm. base of wound is 80% fibrinous slough,20% radha. Edges pink and adherent to base of wound. No odor or exudate noted. Laterally, but in close proximity is a linear necrotic area which wraps wraps around to posterior shaft. Posteriorly, at distal end -at junction of scrotum,is an open wound that is radha with small amt sanguineous exudate(L)0.6cm x (W)0.7cm.Wound at base of scrotum resolving. Dry pink epithelail noted.R and L ischial tuberosities skin tone is darker without induration or erythema. R and L heels are boggy with non-blanching erythema. Peristomal GT site has resolved. No erythema or skin breakdown noted. All wound prevention protocols continued as care-planned. PT has an APM/BECCA Mattress overlay on his bed and is being positioned as per tolerance and within protocols. Both heels are floated off mattress with pillows. Tx.Plan:Apply Cavilon Skin Barrier to R Elbow. Cover with Optifoam drsg. Change every 7 days and prn. Cleanse wound dorsal shaft of Penis with Saline. Apply Therahoney. Apply Zinc Oxide periwound. Cover with Optifoam drsg. Change every 7 days and prn. Apply Zinc Oxide Paste to Sacrum. Cover with Optifoam drsg. Change every 3 days and prn. Apply Zinc Oxide Paste to Scrotum Three times daily and prn. Apply Zinc Oxide to GT site Daily and prn. Leave open to Air. Apply Cavilon Skin Barrier to both heels. Cover each heel with Optifoam drsg. Change every 7 days and prn. Reposition at least every 2hours or as tolerated. Off-load heels with pillow. APM/BECCA Mattress overlay
--- NOTE | 2019-09-18 15:37 | NUR ---
CASE MANAGEMENT: REVIEW SI: PNA . ESRD on HD . CHRONIC LEUKOCYTOSIS T 98.4 HR 64 RR 12 BP 135/57 SAT 100% MECH VENT FIO2 24 WBC 16.4 H/H 8.7/29.3 BUN 72 CR 3.8 GLUCOSE 156 IS: EPOETIN SUBQ QMWF HEPARIN IV PRN HD HD NEEDED STEP DOWN UNIT STATUS DCP: PATIENT HAS BEEN ACCEPTED TO [facility]
--- NOTE | 2019-09-18 15:40 | NUR ---
INSURANCE UPDATED CLINICALS/REVIEW FAXED TO [facility] / [facility] REF# [id number] RIC:HARPER P:[phone] F:[phone]
--- NOTE | 2019-09-18 15:58 | NUR ---
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 AWAITING CALL BACK
[2019-09-18 16:00] VITALS: BP 154/62
--- NOTE | 2019-09-18 19:10 | NUR ---
RESPIRATORY NOTE: PT RECEIVED STABLE ON CMV WITH CURRENT SETTING: AC 12, 550, 24%, +5. ALARMS ARE ON AND AUDIBLE. VENT CIRCUIT IS SECURE AND OUT OF THE WAY NO S/S OF RESPIRATORY DISTRESS ARE NOTED AT THIS TIME. WILL CONTINUE TO MONITOR.
--- NOTE | 2019-09-18 19:10 | NUR ---
NURSE NOTES: Pt report received from NINA DAVEY. pt remains stable. pt is obtunded neuro jimenez, however, no acute change to neuro mentation. pt is trach vented showing 98% O2, no acute signs symptoms of acute resp distress. pt on cardiac nurse specialist showing V pace, no acute abnormalities cardiac jimenez. pt bed is low, locked, armed, call light within reach, bed rails up times 3. will follow plan of care.
--- NOTE | 2019-09-18 19:32 | NUR ---
NURSE HAND-OFF REPORT: Important Events on Shift: na Patient Status: stable Diet: Vital AF @ 50ml/h Pending Orders: HD tomorrow 09/18 Pending Results/Labs: na Pending MD notification:na Latest Vital Signs: Temperature 98.1 , Pulse 72 , B/P 154 /62 , Respiratory Rate 12 , O2 SAT 100 , Mechanical Ventilator, O2 Flow Rate 15.0 . Vital Sign Comment: stable EKG Rhythm: V-Paced Rhythm change?: N MD Notified?: N - MD Response: Latest Delacruz Fall Score: 70 Fall Risk: High Risk Safety Measures: Call light Within Reach, Bed Alarm Zone 2, Side Rails Side Rails x3, Bed position Low and Locked. Fall Precautions: Yellow Socks Yellow Gown Door Sign Patient Fall Education Report given to TAMICA Espino.
[2019-09-18 20:00] VITALS: BP 120/49
[2019-09-18] MEDS: Atorvastatin 20mg tab GT SCH (20:38)
[2019-09-18] MEDS: Dyna-Hex 2% Top Sol 2oz TOPIC SCH (20:38)
[2019-09-18] MEDS ORDERED: Epoetin Alfa-EPBX(ESRD on dialysis)2000 units/ml vial SUBQ SCH (21:00)
[2019-09-18] MEDS ORDERED: Epoetin Alfa-EPBX(ESRD on dialysis)4000 units/ml vial SUBQ SCH (21:00)
--- NOTE | 2019-09-18 22:00 | NUR ---
NURSE NOTES: pt turned, repositioned, cleaned, skin care.
--- NOTE | 2019-09-18 22:35 | General Progress Note ---
Assessment/Plan Assessment/Plan: Assessment - colonoscopy negative to hepatic flexure - diarrhea - presumed TF related - abnormal LFT - Anemia - leukocytosis - stool OB (+) - EGD --> gastritis - Renal failure - Anasarca - resp failure, trach - dysphagia, GT - encephalopathy, contracted - poor px Recommendations - Continue TF - Elevate HOB - f/u labs - PPI - abx - supportive care Subjective Allergies: Coded Allergies: No Known Allergies (Unverified , 06/10/19) Subjective Above noted no events tolerating TF Objective Last 24 Hour Vital Signs Date Time Temp Pulse Resp B/P (MAP) Pulse Ox O2 Delivery O2 Flow Rate FiO2 09/18/19 21:12 70 12 24 09/18/19 20:34 69 120/49 09/18/19 19:10 70 12 24 09/18/19 17:29 72 12 24 09/18/19 16:00 24 09/18/19 16:00 65 09/18/19 16:00 Mechanical Ventilator 09/18/19 16:00 98.1 73 12 154/62 (92) 100 09/18/19 15:07 66 12 24 09/18/19 13:25 65 12 09/18/19 12:40 98.4 64 12 135/57 (83) 100 09/18/19 12:00 24 09/18/19 12:00 65 09/18/19 12:00 Mechanical Ventilator 09/18/19 10:50 66 12 24 09/18/19 09:01 64 12 24 09/18/19 08:59 67 143/59 09/18/19 08:59 143/59 09/18/19 08:00 68 09/18/19 08:00 98.1 69 12 143/59 (87) 100 09/18/19 08:00 Mechanical Ventilator 09/18/19 08:00 24 09/18/19 07:25 73 12 24 09/18/19 05:02 67 12 24 09/18/19 04:00 Mechanical Ventilator 09/18/19 04:00 24 09/18/19 04:00 98.6 66 12 128/57 (80) 100 09/18/19 03:35 66 09/18/19 03:10 67 12 24 09/18/19 01:30 75 12 24 09/18/19 00:00 Mechanical Ventilator 09/18/19 00:00 98.2 77 12 150/71 (97) 100 09/17/19 23:30 77 09/17/19 23:30 76 14 24 Intake and Output 09/17/19 09/18/19 19:00 07:00 Intake Total 640 ml 600 ml Output Total 100 ml 150 ml Balance 540 ml 450 ml Free Water 90 ml Tube Feeding 550 ml 600 ml Stool Total 100 ml 150 ml Laboratory Tests 09/17/19 23:52: POC Whole Blood Glucose 150H 09/18/19 05:20: POC Whole Blood Glucose 152H 09/18/19 09:40: White Blood Count 16.4H, Red Blood Count 3.40L, Hemoglobin 8.7L, Hematocrit 29.3L, Mean Corpuscular Volume 86, Mean Corpuscular Hemoglobin 25.6L, Mean Corpuscular Hemoglobin Concent 29.7L, Red Cell Distribution Width 18.8H, Platelet Count 375, Mean Platelet Volume 6.0L, Neutrophils (%) (Auto) 62.1, Lymphocytes (%) (Auto) 16.3L, Monocytes (%) (Auto) 7.5, Eosinophils (%) (Auto) 13.2H, Basophils (%) (Auto) 0.9, Sodium Level 145, Potassium Level 3.6, Chloride Level 105, Carbon Dioxide Level 32, Anion Gap 8, Blood Urea Nitrogen 72H, Creatinine 3.8H, Estimat Glomerular Filtration Rate 15.5, Glucose Level 163H, Calcium Level 9.1 09/18/19 11:14: POC Whole Blood Glucose 156H 09/18/19 17:06: POC Whole Blood Glucose [Pending] Height (Feet): 5 Height (Inches): 10.00 Weight (Pounds): 117 Objective Debilitated AA man NCAT (+) trach coarse BS RR abd distended, anasarca, (+) GT ext (+) edema contracted Ronny Mustafa MD Sep 18, 2019 22:35
[2019-09-19] VITALS: BP 116/59
--- NOTE | 2019-09-19 02:00 | NUR ---
NURSE NOTES: Pt IV line assessed, Feeding tube assessed, pt turned and repositioned.
[2019-09-19 04:00] VITALS: BP 116/53
--- NOTE | 2019-09-19 04:00 | NUR ---
NURSE NOTES: pt turned and repositioned, bed sheets changed, assessed vent and trach tubing.
[2019-09-19 04:56] LABS: BASOPHILS % (AUTO) 1.2 % (0.0-2.0); EOSINOPHILS % (AUTO) 13.6 % (0.0-3.0); HEMATOCRIT 28.7 % (42.0-52.0); HEMOGLOBIN 8.5 G/DL (14.2-18.0); LYMPHOCYTES % (AUTO) 19.1 % (20.0-45.0); MEAN CORPUSCULAR VOLUME 87 FL (80-99); MONOCYTES % (AUTO) 8.2 % (1.0-10.0); NEUTROPHILS % (AUTO) 57.9 % (45.0-75.0); PLATELET COUNT 406 K/UL (150-450); RED BLOOD COUNT 3.32 M/UL (4.70-6.10); RED CELL DISTRIBUTION WIDTH 18.5 % (11.6-14.8); WHITE BLOOD COUNT 16.5 K/UL (4.8-10.8)
--- NOTE | 2019-09-19 05:05 | NUR ---
RESPIRATORY NOTE: PT REMAINED STABLE ON CMV WITH CURRENT SETTINGS. SXN PRN. AIRWAY IS MIDLINE, SECURE AND PATENT. VENT CIRCUIT IS SECURE AND OUT OF THE WAY. NO S/S OF RESPIRATORY DISTRESS NOTED AT THIS TIME.
[2019-09-19 05:21] LABS: ANION GAP 12 mmol/L (5-15); BLOOD UREA NITROGEN 88 mg/dL (7-18); CALCIUM 9.3 MG/DL (8.5-10.1); CARBON DIOXIDE 30 MMOL/L (21-32); CHLORIDE 102 MMOL/L (98-107); CREATININE 4.5 MG/DL (0.55-1.30); POTASSIUM 3.4 MMOL/L (3.5-5.1); SODIUM 144 MMOL/L (136-145)
[2019-09-19] MEDS ORDERED: Heparin Sod 1000 units/ml 10ml IV PRN (06:00)
[2019-09-19] MEDS ORDERED: Heparin 1000 units/ml 1ml Vial INJ PRN (06:00)
[2019-09-19] MEDS: NovoLOG Insulin Flexpen SUBQ SCH ×3 (06:03→17:07)
--- NOTE | 2019-09-19 07:11 | NUR ---
NURSE HAND-OFF REPORT: Important Events on Shift:[N] Patient Status: [STABLE] Diet: [ MD ORDERED] Pending Orders: [N] Pending Results/Labs:[N] Pending MD notification:[N] Latest Vital Signs: Temperature 98.3 , Pulse 78 , B/P 116 /53 , Respiratory Rate 12 , O2 SAT 98 , Mechanical Ventilator, O2 Flow Rate 15.0 . Vital Sign Comment: [STABLE] EKG Rhythm: V PACE BBB Rhythm change?: N MD Notified?: N - MD Response: Latest Delacruz Fall Score: 70 Fall Risk: High Risk Safety Measures: Call light Within Reach, Bed Alarm Zone 2, Side Rails Side Rails x3, Bed position Low and Locked. Fall Precautions: Yellow Socks Yellow Gown Door Sign Patient Fall Education Report given to [NINA DAVEY].
--- NOTE | 2019-09-19 07:30 | NUR ---
NURSE NOTES: Received report from TAMICA Espino. Patient in bed resting, no active s/s cardiac, respiratory distress noticed at this time. Patient obtunded, V-paced with HR 72, Trach to vent Portex 8 AC 12 TV 550 Fio2 24% PEEP 5. Patient on GT feeding vital AF @ 50ml/h. Rectal tube draining well to gravity at this time. Endorsed HD schedule for today 09/19/19. IV on right FA 18G, asymptomatic, patent, intact. Right upper SC PermaCath intact and patent. Bed in lowest position, side rails upx3, call light within reach, bed alarm on, Will continue to monitor.
--- NOTE | 2019-09-19 07:31 | General Progress Note ---
Assessment/Plan Assessment/Plan: IMPRESSION: 1. anemia. 2. GI bleed. 3. Leukocytosis. 4. Probable sepsis. + BCX 5. Acute on chronic renal failure. 6. Hyponatremia. 7. Severe protein-calorie malnutrition. 8. Significantly elevated C-reactive protein concerning for infectious etiology. 9. Tracheostomy, G-tube. 10. Ventilator dependence. 11. anasarca with bilateral pleural effusion 12. Hematuria 13. V pacing PLAN needs placement care noted on vent/ no wean surgical follow up monitor labs and adjust RX ID follow up monitor renal function: HD prognosis poor impression, plan, and exam edited and reviewed in detail care discussed with RN Subjective Allergies: Coded Allergies: No Known Allergies (Unverified , 06/10/19) Subjective remains ill on vent on HD Objective Last 24 Hour Vital Signs Date Time Temp Pulse Resp B/P (MAP) Pulse Ox O2 Delivery O2 Flow Rate FiO2 09/19/19 05:05 78 12 24 09/19/19 04:00 Mechanical Ventilator 09/19/19 04:00 98.3 70 14 116/53 (74) 98 09/19/19 04:00 24 09/19/19 04:00 78 09/19/19 03:10 77 14 24 09/19/19 00:34 73 12 24 09/19/19 00:00 24 09/19/19 00:00 Mechanical Ventilator 09/19/19 00:00 73 09/19/19 00:00 98.7 72 14 116/59 (78) 99 09/18/19 22:36 71 12 24 09/18/19 21:12 70 12 24 09/18/19 20:34 69 120/49 09/18/19 20:00 Mechanical Ventilator 09/18/19 20:00 69 09/18/19 20:00 24 09/18/19 20:00 98.4 70 14 120/49 (72) 99 09/18/19 19:10 70 12 24 09/18/19 17:29 72 12 24 09/18/19 16:00 24 09/18/19 16:00 65 09/18/19 16:00 Mechanical Ventilator 09/18/19 16:00 98.1 73 12 154/62 (92) 100 09/18/19 15:07 66 12 24 09/18/19 13:25 65 12 24 8/10/20 12:40 98.4 64 12 135/57 (83) 100 09/18/19 12:00 24 09/18/19 12:00 65 09/18/19 12:00 Mechanical Ventilator 09/18/19 10:50 66 12 24 09/18/19 09:01 64 12 24 09/18/19 08:59 67 143/59 09/18/19 08:59 143/59 09/18/19 08:00 68 09/18/19 08:00 98.1 69 12 143/59 (87) 100 09/18/19 08:00 Mechanical Ventilator 09/18/19 08:00 24 Intake and Output 09/18/19 09/19/19 19:00 07:00 Intake Total 690 ml 550 ml Output Total 100 ml 100 ml Balance 590 ml 450 ml Free Water 90 ml Tube Feeding 600 ml 550 ml Stool Total 100 ml 100 ml Laboratory Tests 09/18/19 09:40: White Blood Count 16.4H, Red Blood Count 3.40L, Hemoglobin 8.7L, Hematocrit 29.3L, Mean Corpuscular Volume 86, Mean Corpuscular Hemoglobin 25.6L, Mean Corpuscular Hemoglobin Concent 29.7L, Red Cell Distribution Width 18.8H, Platelet Count 375, Mean Platelet Volume 6.0L, Neutrophils (%) (Auto) 62.1, Lymphocytes (%) (Auto) 16.3L, Monocytes (%) (Auto) 7.5, Eosinophils (%) (Auto) 13.2H, Basophils (%) (Auto) 0.9, Sodium Level 145, Potassium Level 3.6, Chloride Level 105, Carbon Dioxide Level 32, Anion Gap 8, Blood Urea Nitrogen 72H, Creatinine 3.8H, Estimat Glomerular Filtration Rate 15.5, Glucose Level 163H, Calcium Level 9.1 09/18/19 11:14: POC Whole Blood Glucose 156H 09/18/19 17:06: POC Whole Blood Glucose [Pending] 09/18/19 23:29: POC Whole Blood Glucose [Pending] 09/19/19 03:30: White Blood Count 16.5H, Red Blood Count 3.32L, Hemoglobin 8.5L, Hematocrit 28.7L, Mean Corpuscular Volume 87, Mean Corpuscular Hemoglobin 25.7L, Mean Corpuscular Hemoglobin Concent 29.7L, Red Cell Distribution Width 18.5H, Platelet Count 406, Mean Platelet Volume 6.4L, Neutrophils (%) (Auto) 57.9, Lymphocytes (%) (Auto) 19.1L, Monocytes (%) (Auto) 8.2, Eosinophils (%) (Auto) 13.6H, Basophils (%) (Auto) 1.2, Sodium Level 144, Potassium Level 3.4L, Chloride Level 102, Carbon Dioxide Level 30, Anion Gap 12, Blood Urea Nitrogen 88H, Creatinine 4.5H, Estimat Glomerular Filtration Rate 12.7, Glucose Level 171H, Calcium Level 9.3 09/19/19 05:59: POC Whole Blood Glucose 168H Height (Feet): 5 Height (Inches): 10.00 Weight (Pounds): 120 Objective GENERAL: Ill-appearing male, chronically debilitated. HEENT: Tracheostomy in midline. Questionable fullness in the submandibular region. LUNGS: Coarse breath sounds. reduced breath sounds CARDIAC: S1, S2. Regular rate and rhythm. ABDOMEN: Soft. G-tube. EXTREMITIES: With noted edema. NEUROLOGICAL: Poorly responsive, weak diffusely. Kain Ramirez MD Sep 19, 2019 07:31
[2019-09-19 08:00] VITALS: BP 122/52
[2019-09-19] MEDS: Zinc Oxide Oint 2oz TOPIC SCH ×2 (08:34→17:13)
[2019-09-19] MEDS: Lactobacillus-GG tablet GT SCH ×2 (08:34→17:12)
[2019-09-19] MEDS: Metoprolol Tartrate 100mg tab GT SCH ×2 (08:35→20:46)
[2019-09-19] MEDS: Minoxidil 2.5mg tab GT SCH (08:35)
--- NOTE | 2019-09-19 11:31 | Infectious Diseases Prog Note ---
Assessment/Plan Assessment/Plan antibiotics : none A 1. klebsiella catheter infection s/p rx 2. respiratory failure 3. leucocytosis improving 4. klebsiella, pseudomonas, providencia pneumonia s/p rx COVID 19 test negative x 2 5. renal failure on HD P 1. observe off antibiotics 2. will follow up cultures Subjective ROS Limited/Unobtainable: Yes Allergies: Coded Allergies: No Known Allergies (Unverified , 06/10/19) Objective Last 24 Hour Vital Signs Date Time Temp Pulse Resp B/P (MAP) Pulse Ox O2 Delivery O2 Flow Rate FiO2 09/19/19 11:23 74 12 24 09/19/19 09:15 72 14 24 09/19/19 08:46 72 09/19/19 08:35 72 122/52 09/19/19 08:35 122/52 09/19/19 08:00 24 09/19/19 08:00 98.8 72 13 122/52 (75) 98 09/19/19 08:00 Mechanical Ventilator 09/19/19 07:24 71 12 24 09/19/19 05:05 78 12 24 09/19/19 04:00 Mechanical Ventilator 09/19/19 04:00 98.3 70 14 116/53 (74) 98 09/19/19 04:00 24 09/19/19 04:00 78 09/19/19 03:10 77 14 24 09/19/19 00:34 73 12 24 09/19/19 00:00 24 09/19/19 00:00 Mechanical Ventilator 09/19/19 00:00 73 09/19/19 00:00 98.7 72 14 116/59 (78) 99 09/18/19 22:36 71 12 24 09/18/19 21:12 70 12 24 09/18/19 20:34 69 120/49 09/18/19 20:00 Mechanical Ventilator 09/18/19 20:00 69 09/18/19 20:00 24 09/18/19 20:00 98.4 70 14 120/49 (72) 99 09/18/19 19:10 70 12 24 09/18/19 17:29 72 12 24 09/18/19 16:00 24 09/18/19 16:00 65 09/18/19 16:00 Mechanical Ventilator 09/18/19 16:00 98.1 73 12 154/62 (92) 100 09/18/19 15:07 66 12 24 09/18/19 13:25 65 12 24 09/18/19 12:40 98.4 64 12 135/57 (83) 100 09/18/19 12:00 24 09/18/19 12:00 65 09/18/19 12:00 Mechanical Ventilator Height (Feet): 5 Height (Inches): 10.00 Weight (Pounds): 120 HEENT: status post trach Respiratory/Chest: lungs clear Cardiovascular: normal rate, regular rhythm, no gallop/murmur Abdomen: soft, non tender Extremities: no edema, other - right subclavian Laboratory Tests Test 09/18/19 17:06 09/18/19 23:29 09/19/19 03:30 09/19/19 05:59 POC Whole Blood Glucose Pending Pending 168 MG/DL (74-106) H White Blood Count 16.5 K/UL (4.8-10.8) H Red Blood Count 3.32 M/UL (4.70-6.10) L Hemoglobin 8.5 G/DL (14.2-18.0) L Hematocrit 28.7 % (42.0-52.0) L Mean Corpuscular Volume 87 FL (80-99) Mean Corpuscular Hemoglobin 25.7 PG (27.0-31.0) L Mean Corpuscular Hemoglobin Concent 29.7 G/DL (32.0-36.0) L Red Cell Distribution Width 18.5 % (11.6-14.8) H Platelet Count 406 K/UL (150-450) Mean Platelet Volume 6.4 FL (6.5-10.1) L Neutrophils (%) (Auto) 57.9 % (45.0-75.0) Lymphocytes (%) (Auto) 19.1 % (20.0-45.0) L Monocytes (%) (Auto) 8.2 % (1.0-10.0) Eosinophils (%) (Auto) 13.6 % (0.0-3.0) H Basophils (%) (Auto) 1.2 % (0.0-2.0) Sodium Level 144 MMOL/L (136-145) Potassium Level 3.4 MMOL/L (3.5-5.1) L Chloride Level 102 MMOL/L (98-107) Carbon Dioxide Level 30 MMOL/L (21-32) Anion Gap 12 mmol/L (5-15) Blood Urea Nitrogen 88 mg/dL (7-18) H Creatinine 4.5 MG/DL (0.55-1.30) H Estimat Glomerular Filtration Rate 12.7 mL/min (>60) Glucose Level 171 MG/DL (74-106) H Calcium Level 9.3 MG/DL (8.5-10.1) Test 09/19/19 11:16 POC Whole Blood Glucose 160 MG/DL (74-106) H Current Medications Medications (Trade) Dose Ordered Sig/Leonel Route PRN Reason Start Time Stop Time Status Last Admin Dose Admin Acetaminophen (Tylenol) 650 mg Q4H PRN GT Mild Pain (Pain Scale 1-3) 09/09/19 00:45 10/09/19 00:44 09/15/19 20:09 Atorvastatin Calcium (Lipitor) 40 mg BEDTIME GT 08/09/19 21:00 11/07/19 20:59 09/18/19 20:38 Chlorhexidine Gluconate (Felipa-Hex 2%) 1 applic DAILY@1999 TOPIC 09/12/19 20:00 12/11/19 19:59 09/18/19 20:38 Clonidine HCl (Catapres Tab) 0.1 mg Q4H PRN GT For High Blood Pressure 09/09/19 12:30 12/08/19 05:29 09/15/19 04:10 Dextrose (Dextrose 50%) 25 ml Q30M PRN IV Hypoglycemia 08/09/19 07:30 11/07/19 07:29 Dextrose (Dextrose 50%) 50 ml Q30M PRN IV Hypoglycemia 08/09/19 07:30 11/07/19 07:29 Epoetin Andreas (Epoetin Andreas(ESRD on dialysis)) 2,000 unit SUBQ 09/18/19 21:00 12/17/19 20:59 09/18/19 20:38 Epoetin Andreas (Epoetin Andreas(ESRD on dialysis)) 8,000 unit SUBQ 09/18/19 21:00 12/17/19 20:59 09/18/19 20:38 Famotidine (Pepcid) 20 mg DAILY GT 08/30/19 09:00 11/28/19 08:59 09/19/19 08:34 Heparin Sodium (Porcine) (Heparin Sod 1000 units/ml 10ml) 2,000 unit ONCE PRN IV HD 09/19/19 06:00 09/19/19 23:59 Heparin Sodium (Porcine) (Heparin) 1,000 unit POSTHD PRN INJ POST HD 09/19/19 06:00 09/19/19 23:59 Insulin Aspart (NovoLOG) Q6HR SUBQ 08/10/19 00:00 11/07/19 11:29 09/19/19 06:03 Lactobacillus Acidophilus (Culturelle) 1 tab TWICE A DAY GT 09/14/19 18:00 12/13/19 17:59 09/19/19 08:34 Metoprolol Tartrate (Lopressor) 200 mg Q12HR GT 08/09/19 09:00 11/07/19 08:59 09/18/19 08:59 Minoxidil (Loniten) 5 mg DAILY GT 08/09/19 09:00 11/07/19 08:59 09/18/19 08:59 Sodium Chloride 1,000 ml @ 500 mls/hr Q2H PRN IVLG sbp<90 during hd 09/19/19 06:00 09/19/19 23:59 Zinc Oxide (Zinc Oxide) 1 applic BID TOPIC 08/10/19 18:00 11/08/19 17:59 09/19/19 08:34 Farnaz Lyle MD Sep 19, 2019 11:31
[2019-09-19 12:00] VITALS: BP 139/81
--- NOTE | 2019-09-19 12:11 | NUR ---
RD ASSESSMENT & RECOMMENDATIONS SEE CARE ACTIVITY FOR COMPLETE ASSESSMENT DAILY ESTIMATED NEEDS: Needs based on Renal, critical care, wound/ 61kg 22-30 kcals/kg 0173-7010 total kcals 1.25-2 g protein/kg 76-122 g total protein Fluid per MD, now on HD mL/kg . total fluid mLs NUTRITION DIAGNOSIS: * Swallowing difficulty R/T respiratory failure, dysphagia as evidenced by trach/vent dep, PEG dep * Increased kcal/prot needs R/T wound healing as evidenced by admitted w/ multiple pressure injuries including full thickness wounds at junction of Shaft of penis, dorsal scrotum, R elbow, and DTPI @ L buttocks. CURRENT TF:Vital AF 1.2 @ 50ml/hr x 24 hrs + Garo BID ENTERAL NUTRITION RECOMMENDATIONS: Vital AF 1.2 @ 50ml/hr x 24 hrs to provide 1200ml, 1440kcal,9 0g prot, 973ml free water * Maintain elemental TF of Vital AF 1.2 w/ continued diarrhea -> monitor lytes and renal fxn closely, monitor need for renal TF -> TF @ goal will provide 1642mg K and 5mg Phos * HOB over 30 degrees/ water flush per MD * Continue Garo BID via PEG ADDITIONAL RECOMMENDATIONS: * Per SNF: HT=63" JH=888 lbs (vs EMR wt of 166lbs) -> obtain re-calibrated bedscale wt, rec daily wt monitoring * Wound healing: con't Nephrovite + Garo BID/ Vit C dosing per Nephro * Monitor renal fxn and lytes closely w/ non-renal TF -> K wnl; rec updated phos * Daily wts w/ drop to 118, 117 lbs, rec to recalibrate for accurate CBW * Consider adding anti-diarrheal med for continued diarrhea, +rectal tube
--- NOTE | 2019-09-19 13:10 | Surgery Progress Note ---
Surgery Progress Note Subjective Procedure Performed Right femoral temporary hemodialysis catheter removal Additional Comments ill appearing no n/v labs noted leukocytosis persistent on support weaning Objective Last 24 Hour Vital Signs Date Time Temp Pulse Resp B/P (MAP) Pulse Ox O2 Delivery O2 Flow Rate FiO2 09/19/19 12:15 72 09/19/19 12:00 24 09/19/19 12:00 Mechanical Ventilator 09/19/19 12:00 98.4 75 13 139/81 (100) 98 09/19/19 11:23 74 12 24 09/19/19 09:15 72 14 24 09/19/19 08:46 72 09/19/19 08:35 72 122/52 09/19/19 08:35 122/52 09/19/19 08:00 24 09/19/19 08:00 98.8 72 13 122/52 (75) 98 09/19/19 08:00 Mechanical Ventilator 09/19/19 07:24 71 12 24 09/19/19 05:05 78 12 24 09/19/19 04:00 Mechanical Ventilator 09/19/19 04:00 98.3 70 14 116/53 (74) 98 09/19/19 04:00 24 09/19/19 04:00 78 09/19/19 03:10 77 14 24 09/19/19 00:34 73 12 24 09/19/19 00:00 24 09/19/19 00:00 Mechanical Ventilator 09/19/19 00:00 73 09/19/19 00:00 98.7 72 14 116/59 (78) 99 09/18/19 22:36 71 12 24 09/18/19 21:12 70 12 24 09/18/19 20:34 69 120/49 09/18/19 20:00 Mechanical Ventilator 09/18/19 20:00 69 09/18/19 20:00 24 09/18/19 20:00 98.4 70 14 120/49 (72) 99 09/18/19 19:10 70 12 24 09/18/19 17:29 72 12 24 09/18/19 16:00 24 09/18/19 16:00 65 09/18/19 16:00 Mechanical Ventilator 09/18/19 16:00 98.1 73 12 154/62 (92) 100 09/18/19 15:07 66 12 24 09/18/19 13:25 65 12 24 I&O Intake and Output 09/18/19 09/19/19 19:00 07:00 Intake Total 690 ml 550 ml Output Total 100 ml 100 ml Balance 590 ml 450 ml Free Water 90 ml Tube Feeding 600 ml 550 ml Stool Total 100 ml 100 ml Dressing: saturated Cardiovascular: RSR Respiratory: decreased breath sounds Abdomen: soft, non-tender, present bowel sounds Extremities: edema, no tenderness, no cyanosis, other Laboratory Tests Test 09/18/19 17:06 09/18/19 23:29 09/19/19 03:30 09/19/19 05:59 POC Whole Blood Glucose Pending Pending 168 MG/DL (74-106) H White Blood Count 16.5 K/UL (4.8-10.8) H Red Blood Count 3.32 M/UL (4.70-6.10) L Hemoglobin 8.5 G/DL (14.2-18.0) L Hematocrit 28.7 % (42.0-52.0) L Mean Corpuscular Volume 87 FL (80-99) Mean Corpuscular Hemoglobin 25.7 PG (27.0-31.0) L Mean Corpuscular Hemoglobin Concent 29.7 G/DL (32.0-36.0) L Red Cell Distribution Width 18.5 % (11.6-14.8) H Platelet Count 406 K/UL (150-450) Mean Platelet Volume 6.4 FL (6.5-10.1) L Neutrophils (%) (Auto) 57.9 % (45.0-75.0) Lymphocytes (%) (Auto) 19.1 % (20.0-45.0) L Monocytes (%) (Auto) 8.2 % (1.0-10.0) Eosinophils (%) (Auto) 13.6 % (0.0-3.0) H Basophils (%) (Auto) 1.2 % (0.0-2.0) Sodium Level 144 MMOL/L (136-145) Potassium Level 3.4 MMOL/L (3.5-5.1) L Chloride Level 102 MMOL/L (98-107) Carbon Dioxide Level 30 MMOL/L (21-32) Anion Gap 12 mmol/L (5-15) Blood Urea Nitrogen 88 mg/dL (7-18) H Creatinine 4.5 MG/DL (0.55-1.30) H Estimat Glomerular Filtration Rate 12.7 mL/min (>60) Glucose Level 171 MG/DL (74-106) H Calcium Level 9.3 MG/DL (8.5-10.1) Test 09/19/19 11:16 POC Whole Blood Glucose 160 MG/DL (74-106) H Plan Problems: (1) Anemia (2) Hyponatremia (3) Leukocytosis Assessment & Plan: Tracheostomy, left chest pacemaker are again demonstrated. There is bilateral interstitial and airspace disease and bilateral pleural fluid again demonstrated. This appears more severe than on the prior study. Bilateral interstitial and airspace infiltrates versus edema. Bilateral pleural effusions Leukocytosis, anemia, tachycardia, abnormal labs. Wound evaluated and likely etiology of patient's sepsis. Leukocytosis etiology work-up antibiotics per infectious disease Appreciate nephrology input transfuse with dialysis We will follow with recommendations thank you allowing participation's care plan HD access temp HD discussed with medical teams line okay HD as per renal persistent leukocytosis flow cyto noted improving trending down right fem line removed (4) Ventilator dependent (5) Right lower lobe pneumonia (6) Hypokalemia (7) Hyperkalemia (8) Anasarca (9) Decubitus skin ulcer Assessment & Plan: pt presented on admission with generalized edemae.Skin assessed under tracheostomy and no areas of concerns noted. GT Insertion is marginally erythematous with small amt slough at stoma. Unstageable Pressure Injury R elbow. Base of wound is 100% yellow slough, Borders are erythematous. Wound oozing small amt haemopurulent exudate.Darker skin tone without elevation in skin temp or erythema periwound. Pt's penis and scrotum are grossly edematous and enlarged and weeping serous exudate from numerous sites both from penis and scrotum. Two small open wounds noted at base of at base of shaft of penis ,and contreras aspect of scrotum. Both wounds oozing large amt sanguineous and serosanguineous exudate. Multiple open wounds with Biofilm at base of each wounds noted to contreras/lateral,inferior and posterior aspects of scrotum. These wounds noted to be oozing moderate amts of serosanguineous exudate. Hypertrophic scar with scattered areas of hyperpigmentation noted to Sacrum. DTPI noted to L Buttocks (L)7cm x (W)9cm. Base of wound is purple and indurated.Darker skin tone without erythema, induration or fluctuance R and L ischial tuberosities. Both heels are boggy with non-blanchable erythema. Tx.Plan: Cleanse wound R elbow with Saline. Apply TheraHoney, Apply Moisture Barrier Paste periwound. Cover with Optifoam drsg.Change Daily and prn. Wash GT site with soap and water.Pat dry. Apply Zinc Oxide Paste to GT site Daily. Leave Open to Air. Apply Zinc Oxide Paste to entire Scrotum, Place ABD pads to R and L lateral, and posterior aspects of scrotum TWICE daily. Apply Cavilon Skin Barrier to malleoli and both Heels. Cover each site with Optifoam drsgs. Change every 7 days and prn. Reposition at least every 2hours or as tolerated. Off-load heels with Pillows. APM/BECCA Mattress overlay. (10) Malnutrition Assessment & Plan: DAILY ESTIMATED NEEDS: Needs based on Renal, critical care, wound/ 61kg 22-30 kcals/kg 4194-0965 total kcals 1.25-2 g protein/kg 76-122 g total protein Fluid per MD, now on HD mL/kg . total fluid mLs NUTRITION DIAGNOSIS: * Swallowing difficulty R/T respiratory failure, dysphagia as evidenced by trach/vent dep, PEG dep * Increased kcal/prot needs R/T wound healing as evidenced by admitted w/ multiple pressure injuries including full thickness wounds at junction of Shaft of penis, dorsal scrotum, R elbow, and DTPI @ L buttocks. CURRENT TF:Vital AF 1.2 @ 50ml/hr x 24 hrs + Garo BID ENTERAL NUTRITION RECOMMENDATIONS: Vital AF 1.2 @ 50ml/hr x 24 hrs to provide 1200ml, 1440kcal,9 0g prot, 973ml free water * Maintain elemental TF of Vital AF 1.2 w/ continued diarrhea -> monitor lytes and renal fxn closely, monitor need for renal TF -> TF @ goal will provide 1642mg K and 2025mg Phos * HOB over 30 degrees/ water flush per MD * Continue Garo BID via PEG (11) Uremia (12) CKD (chronic kidney disease) stage 5, GFR less than 15 ml/min (13) Colon distention Assessment & Plan: discussed with GI likely functional as having lots of loose bm rectal tube kub f/u s/p colonoscopy - findings reviewed with GI Marked distention of the sigmoid colon. 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 No evidence of bowel wall thickening or pneumatosis 12 mm focus of contrast enhancement in the right pectineus muscle. While nonspecific in appearance, appearance raises concern for a possible pseudoaneurysm. Ill- defined thickening of the pectus medius muscle could indicate some intramuscular hemorrhage. The above findings were phoned to Dr. Urias at the time of interpretation Large bilateral pleural effusions Hazy pulmonary parenchymal opacities as well as dense consolidative opacities most likely represent pulmonary edema, but could represent pneumonia Evidence of anasarca elsewhere, with generalized edema of the subcutaneous fat Bladder wall thickening, raises concern for cystitis. Avalos catheter in place Colonic diverticulosis. No evidence of diverticulitis. Tracheostomy Pacemaker Gastrostomy Jonathan Urias Sep 19, 2019 13:10
--- NOTE | 2019-09-19 13:31 | Nephrology Progress Note ---
Assessment/Plan Plan Smoldering Sepsis - IV Abx Established ESRD - HD now TTS. Subjective Subjective Obtunded. Objective Objective Last 24 Hour Vital Signs Date Time Temp Pulse Resp B/P (MAP) Pulse Ox O2 Delivery O2 Flow Rate FiO2 09/19/19 12:15 72 09/19/19 12:00 24 09/19/19 12:00 Mechanical Ventilator 09/19/19 12:00 98.4 75 13 139/81 (100) 98 09/19/19 11:23 74 12 24 09/19/19 09:15 72 14 24 09/19/19 08:46 72 09/19/19 08:35 72 122/52 09/19/19 08:35 122/52 09/19/19 08:00 24 09/19/19 08:00 98.8 72 13 122/52 (75) 98 09/19/19 08:00 Mechanical Ventilator 09/19/19 07:24 71 12 24 09/19/19 05:05 78 12 24 09/19/19 04:00 Mechanical Ventilator 09/19/19 04:00 98.3 70 14 116/53 (74) 98 09/19/19 04:00 24 09/19/19 04:00 78 09/19/19 03:10 77 14 24 09/19/19 00:34 73 12 24 09/19/19 00:00 24 09/19/19 00:00 Mechanical Ventilator 09/19/19 00:00 73 09/19/19 00:00 98.7 72 14 116/59 (78) 99 09/18/19 22:36 71 12 24 09/18/19 21:12 70 12 24 09/18/19 20:34 69 120/49 09/18/19 20:00 Mechanical Ventilator 09/18/19 20:00 69 09/18/19 20:00 24 09/18/19 20:00 98.4 70 14 120/49 (72) 99 09/18/19 19:10 70 12 24 09/18/19 17:29 72 12 24 09/18/19 16:00 24 09/18/19 16:00 65 09/18/19 16:00 Mechanical Ventilator 09/18/19 16:00 98.1 73 12 154/62 (92) 100 09/18/19 15:07 66 12 24 Intake and Output 09/18/19 09/19/19 19:00 07:00 Intake Total 690 ml 550 ml Output Total 100 ml 100 ml Balance 590 ml 450 ml Free Water 90 ml Tube Feeding 600 ml 550 ml Stool Total 100 ml 100 ml Laboratory Tests 09/18/19 17:06: POC Whole Blood Glucose [Pending] 09/18/19 23:29: POC Whole Blood Glucose [Pending] 09/19/19 03:30: White Blood Count 16.5H, Red Blood Count 3.32L, Hemoglobin 8.5L, Hematocrit 28.7L, Mean Corpuscular Volume 87, Mean Corpuscular Hemoglobin 25.7L, Mean Corpuscular Hemoglobin Concent 29.7L, Red Cell Distribution Width 18.5H, Platelet Count 406, Mean Platelet Volume 6.4L, Neutrophils (%) (Auto) 57.9, Lymphocytes (%) (Auto) 19.1L, Monocytes (%) (Auto) 8.2, Eosinophils (%) (Auto) 13.6H, Basophils (%) (Auto) 1.2, Sodium Level 144, Potassium Level 3.4L, Chloride Level 102, Carbon Dioxide Level 30, Anion Gap 12, Blood Urea Nitrogen 88H, Creatinine 4.5H, Estimat Glomerular Filtration Rate 12.7, Glucose Level 171H, Calcium Level 9.3 09/19/19 05:59: POC Whole Blood Glucose 168H 09/19/19 11:16: POC Whole Blood Glucose 160H Height (Feet): 5 Height (Inches): 10.00 Weight (Pounds): 120 Objective CV RR Trach clean Lungs CTA New Perma Cath RIJ. Old Femoral Rancho still in Rt. Groin! Abd SNT. BS + E No CCE Erica Pichardo MD Sep 19, 2019 13:31
--- NOTE | 2019-09-19 13:37 | NUR ---
NURSE NOTES: Dr. Arndt at the bedside, made aware of K level today 3.4, no new order received, made aware no lab ordered tomorrow, no new order received at this time. Will continue to monitor.
--- NOTE | 2019-09-19 14:39 | NUR ---
CASE MANAGEMENT: REVIEW SI: PNA . ESRD on HD . CHRONIC LEUKOCYTOSIS T 98.4 HR 75 RR 13 BP 139/81 SAT 98% MECH VENT FIO2 24 WBC 16.5 H/H 8.5/28.7 GLUCOSE 160 IS: EPOETIN SUBQ QMWF HEPARIN IV PRN HD NOVOLOG SUBQ Q6HR HD NEEDED STEP DOWN UNIT STATUS DCP: PATIENT HAS BEEN ACCEPTED TO [facility]
--- NOTE | 2019-09-19 14:43 | NUR ---
INSURANCE UPDATED CLINICALS/REVIEW FAXED TO [facility] / [facility] REF# [id number] RIC:HARPER P:[phone] F:[phone]
--- NOTE | 2019-09-19 15:54 | NUR ---
CASE MANAGEMENT: DCP PATIENT ACCEPTED TO [facility]# [id number] [phone] OUTPATIENT HD RENAL [place] [phone]/ CHAIRTIME PENDING PETTY AUTH TO BE SENT TO HD CENTER TRANSPORTATION TO AND FROM DIALYSIS TO BE PROVIDED BY THE [facility]
[2019-09-19 16:00] VITALS: BP 154/89
[2019-09-19] MEDS: Acetaminophen 650mg/20.3ml GT PRN (17:12)
--- NOTE | 2019-09-19 18:07 | NUR ---
NURSE NOTES: HD nurseSylvester, at the bedside.
--- NOTE | 2019-09-19 19:13 | NUR ---
NURSE HAND-OFF REPORT: Important Events on Shift: HD initiated 1839 Patient Status: stable Diet: Vital AF @ 50ml/h Pending Orders: na Pending Results/Labs:na Pending MD notification:na Latest Vital Signs: Temperature 97.9 , Pulse 75 , B/P 154 /89 , Respiratory Rate 12 , O2 SAT 100 , Mechanical Ventilator, O2 Flow Rate 15.0 . Vital Sign Comment: 99.1 , tyneol given once EKG Rhythm: V-Paced Rhythm change?: N MD Notified?: N - MD Response: Latest Delacruz Fall Score: 70 Fall Risk: High Risk Safety Measures: Call light Within Reach, Bed Alarm Zone 2, Side Rails Side Rails x3, Bed position Low and Locked. Fall Precautions: Yellow Socks Yellow Gown Door Sign Patient Fall Education Report given to TAMICA Worley.
--- NOTE | 2019-09-19 19:25 | NUR ---
NURSE NOTES: Received patient's report from TAMICA العلي. Patient is on bed with open eyes. Patient is on Hemodialysis now. oil and gas exploration technician is next to patient's bed. No s/s of respiratory distress noted. Patient is on vent. Pt is on g-tube, vital AF 1.5 @ 50mL/HR running. Patient is on rectal tube, light brown color noted. Call-light within reach. Bed is low and locked. Will continue to monitor with plan of care.
[2019-09-19 20:00] VITALS: BP 107/47
[2019-09-19] MEDS: Atorvastatin 20mg tab GT SCH (20:46)
[2019-09-19] MEDS: Dyna-Hex 2% Top Sol 2oz TOPIC SCH (20:46)
--- NOTE | 2019-09-19 21:58 | General Progress Note ---
Assessment/Plan Assessment/Plan: Assessment - colonoscopy negative to hepatic flexure - diarrhea - presumed TF related - abnormal LFT - Anemia - leukocytosis - stool OB (+) - EGD --> gastritis - Renal failure - Anasarca - resp failure, trach - dysphagia, GT - encephalopathy, contracted - poor px Recommendations - Continue TF - Elevate HOB - f/u labs - PPI - abx - supportive care Subjective Allergies: Coded Allergies: No Known Allergies (Unverified , 06/10/19) Subjective Above noted no events tolerating TF Objective Last 24 Hour Vital Signs Date Time Temp Pulse Resp B/P (MAP) Pulse Ox O2 Delivery O2 Flow Rate FiO2 09/19/19 20:53 85 20 24 09/19/19 20:46 84 107/47 09/19/19 20:00 98.2 84 18 107/47 (67) 99 09/19/19 19:05 80 15 24 09/19/19 17:42 97.9 09/19/19 16:56 75 09/19/19 16:38 74 12 24 09/19/19 16:00 Mechanical Ventilator 09/19/19 16:00 99.0 78 17 154/89 (110) 100 09/19/19 16:00 24 09/19/19 14:55 69 12 24 09/19/19 13:29 71 13 24 09/19/19 12:15 72 09/19/19 12:00 24 09/19/19 12:00 Mechanical Ventilator 09/19/19 12:00 98.4 75 13 139/81 (100) 98 09/19/19 11:23 74 12 24 09/19/19 09:15 72 14 24 09/19/19 08:46 72 09/19/19 08:35 72 122/52 09/19/19 08:35 122/52 09/19/19 08:00 24 09/19/19 08:00 98.8 72 13 122/52 (75) 98 09/19/19 08:00 Mechanical Ventilator 09/19/19 07:24 71 12 24 09/19/19 05:05 78 12 24 09/19/19 04:00 Mechanical Ventilator 09/19/19 04:00 98.3 70 14 116/53 (74) 98 09/19/19 04:00 24 09/19/19 04:00 78 09/19/19 03:10 77 14 24 8/11/20 00:34 73 12 24 09/19/19 00:00 24 09/19/19 00:00 Mechanical Ventilator 09/19/19 00:00 73 09/19/19 00:00 98.7 72 14 116/59 (78) 99 09/18/19 22:36 71 12 24 Intake and Output 09/18/19 09/19/19 19:00 07:00 Intake Total 690 ml 600 ml Output Total 100 ml 100 ml Balance 590 ml 500 ml Free Water 90 ml Tube Feeding 600 ml 600 ml Stool Total 100 ml 100 ml Laboratory Tests 09/18/19 23:29: POC Whole Blood Glucose [Pending] 09/19/19 03:30: White Blood Count 16.5H, Red Blood Count 3.32L, Hemoglobin 8.5L, Hematocrit 28.7L, Mean Corpuscular Volume 87, Mean Corpuscular Hemoglobin 25.7L, Mean Corpuscular Hemoglobin Concent 29.7L, Red Cell Distribution Width 18.5H, Platelet Count 406, Mean Platelet Volume 6.4L, Neutrophils (%) (Auto) 57.9, Lymphocytes (%) (Auto) 19.1L, Monocytes (%) (Auto) 8.2, Eosinophils (%) (Auto) 13.6H, Basophils (%) (Auto) 1.2, Sodium Level 144, Potassium Level 3.4L, Chloride Level 102, Carbon Dioxide Level 30, Anion Gap 12, Blood Urea Nitrogen 88H, Creatinine 4.5H, Estimat Glomerular Filtration Rate 12.7, Glucose Level 171H, Calcium Level 9.3 09/19/19 05:59: POC Whole Blood Glucose 168H 09/19/19 11:16: POC Whole Blood Glucose 160H 09/19/19 17:06: POC Whole Blood Glucose 131H Height (Feet): 5 Height (Inches): 10.00 Weight (Pounds): 120 Objective Debilitated AA man NCAT (+) trach coarse BS RR abd distended, anasarca, (+) GT ext (+) edema contracted Ronny Mustafa MD Sep 19, 2019 21:58
[2019-09-20] VITALS: BP 127/52
[2019-09-20] MEDS: NovoLOG Insulin Flexpen SUBQ SCH ×4 (00:12→18:26)
[2019-09-20 04:00] VITALS: BP 129/69
--- NOTE | 2019-09-20 07:30 | NUR ---
NURSE HAND-OFF REPORT: Important Events on Shift:[n/a] Patient Status: [Stable] Diet: [Vital AF 1.2] Pending Orders: [] Pending Results/Labs:[] Pending MD notification:[] Latest Vital Signs: Temperature 98.1 , Pulse 75 , B/P 129 /69 , Respiratory Rate 15 , O2 SAT 99 , Mechanical Ventilator, O2 Flow Rate 15.0 . Vital Sign Comment: [Stable] EKG Rhythm: V-Paced Rhythm change?: N MD Notified?: N - MD Response: Latest Delacruz Fall Score: 70 Fall Risk: High Risk Safety Measures: Call light Within Reach, Bed Alarm Zone 2, Side Rails Side Rails x3, Bed position Low and Locked. Fall Precautions: Yellow Socks Yellow Gown Door Sign Patient Fall Education Report given to [TAMICA Ennis].
--- NOTE | 2019-09-20 07:35 | NUR ---
NURSE NOTES: Report received fro Deep HERNANDEZ RN.Pt asleep noted no resp distress,with trach tube to vent ,ordered vent settings tolerated,no signs of pain or discomfort V-Paced on the monitor,anuric,hemodialysis pt ,Rectal tube in placed,draining liquid stools in small amount , skin warm and dry with IV to RFA,site intact, SR up x2 ,HOB elevated ,bed lock in lowest position,will continue with plans of care.
[2019-09-20 08:00] VITALS: BP 128/57
[2019-09-20] MEDS: Metoprolol Tartrate 100mg tab GT SCH ×2 (08:38→20:53)
[2019-09-20] MEDS: Minoxidil 2.5mg tab GT SCH (08:38)
[2019-09-20] MEDS: Lactobacillus-GG tablet GT SCH ×2 (08:38→18:24)
[2019-09-20] MEDS: Zinc Oxide Oint 2oz TOPIC SCH ×2 (08:39→18:24)
--- NOTE | 2019-09-20 10:30 | NUR ---
NURSE NOTES: family member pt's daughter at bedside,updated re pt's status and plans of care.
--- NOTE | 2019-09-20 11:06 | Infectious Diseases Prog Note ---
Assessment/Plan Assessment/Plan antibiotics : none A 1. klebsiella catheter infection s/p rx 2. respiratory failure 3. leucocytosis improving 4. klebsiella, pseudomonas, providencia pneumonia s/p rx COVID 19 test negative x 2 5. renal failure on HD P 1. observe off antibiotics 2. will follow up cultures Subjective ROS Limited/Unobtainable: Yes Allergies: Coded Allergies: No Known Allergies (Unverified , 06/10/19) Objective Last 24 Hour Vital Signs Date Time Temp Pulse Resp B/P (MAP) Pulse Ox O2 Delivery O2 Flow Rate FiO2 09/20/19 10:59 64 12 24 09/20/19 09:02 66 12 24 09/20/19 08:38 76 128/57 09/20/19 08:38 128/57 09/20/19 08:00 98.1 76 22 128/57 (80) 100 09/20/19 08:00 Mechanical Ventilator 09/20/19 08:00 74 09/20/19 08:00 24 09/20/19 07:12 75 15 24 09/20/19 04:34 75 13 24 09/20/19 04:00 24 09/20/19 04:00 98.1 78 12 129/69 (89) 99 09/20/19 04:00 Mechanical Ventilator 09/20/19 03:40 77 09/20/19 02:56 74 16 24 09/20/19 00:41 75 14 24 09/20/19 00:00 24 09/20/19 00:00 Mechanical Ventilator 09/20/19 00:00 97.5 75 14 127/52 (77) 99 09/19/19 23:27 77 09/19/19 23:27 77 09/19/19 22:47 78 13 24 09/19/19 20:53 85 20 24 09/19/19 20:46 84 107/47 09/19/19 20:00 Mechanical Ventilator 09/19/19 20:00 98.2 84 18 107/47 (67) 99 09/19/19 20:00 24 09/19/19 19:05 80 15 24 09/19/19 17:42 97.9 09/19/19 16:56 75 09/19/19 16:38 74 12 24 09/19/19 16:00 Mechanical Ventilator 09/19/19 16:00 99.0 78 17 154/89 (110) 100 8/11/20 16:00 24 09/19/19 14:55 69 12 24 09/19/19 13:29 71 13 24 09/19/19 12:15 72 09/19/19 12:00 24 09/19/19 12:00 Mechanical Ventilator 09/19/19 12:00 98.4 75 13 139/81 (100) 98 09/19/19 11:23 74 12 24 Height (Feet): 5 Height (Inches): 10.00 Weight (Pounds): 120 HEENT: status post trach Respiratory/Chest: lungs clear Cardiovascular: normal rate, regular rhythm, no gallop/murmur Abdomen: soft, non tender, other - GT Extremities: no edema, other - right subclavian catheter Laboratory Tests Test 09/19/19 11:16 09/19/19 17:06 POC Whole Blood Glucose 160 MG/DL (74-106) H 131 MG/DL (74-106) H Current Medications Medications (Trade) Dose Ordered Sig/Leonel Route PRN Reason Start Time Stop Time Status Last Admin Dose Admin Acetaminophen (Tylenol) 650 mg Q4H PRN GT Mild Pain (Pain Scale 1-3) 09/09/19 00:45 10/09/19 00:44 09/19/19 17:12 Atorvastatin Calcium (Lipitor) 40 mg BEDTIME GT 08/09/19 21:00 11/07/19 20:59 09/19/19 20:46 Chlorhexidine Gluconate (Felipa-Hex 2%) 1 applic DAILY@2000 TOPIC 09/12/19 20:00 12/11/19 19:59 09/19/19 20:46 Clonidine HCl (Catapres Tab) 0.1 mg Q4H PRN GT For High Blood Pressure 09/09/19 12:30 12/08/19 05:29 09/15/19 04:10 Dextrose (Dextrose 50%) 25 ml Q30M PRN IV Hypoglycemia 08/09/19 07:30 11/07/19 07:29 Dextrose (Dextrose 50%) 50 ml Q30M PRN IV Hypoglycemia 08/09/19 07:30 11/07/19 07:29 Epoetin Andreas (Epoetin Andreas(ESRD on dialysis)) 2,000 unit WED-WED-WED SUBQ 09/18/19 21:00 12/17/19 20:59 09/18/19 20:38 Epoetin Andreas (Epoetin Andreas(ESRD on dialysis)) 8,000 unit SUBQ 09/18/19 21:00 12/17/19 20:59 09/18/19 20:38 Famotidine (Pepcid) 20 mg DAILY GT 08/30/19 09:00 11/28/19 08:59 09/20/19 08:38 Insulin Aspart (NovoLOG) Q6HR SUBQ 08/10/19 00:00 11/07/19 11:29 09/20/19 06:20 Lactobacillus Acidophilus (Culturelle) 1 tab TWICE A DAY GT 09/14/19 18:00 12/13/19 17:59 09/20/19 08:38 Metoprolol Tartrate (Lopressor) 200 mg Q12HR GT 08/09/19 09:00 11/07/19 08:59 09/20/19 08:38 Minoxidil (Loniten) 5 mg DAILY GT 08/09/19 09:00 11/07/19 08:59 09/20/19 08:38 Zinc Oxide (Zinc Oxide) 1 applic BID TOPIC 08/10/19 18:00 11/08/19 17:59 09/20/19 08:39 Farnaz Lyle MD Sep 20, 2019 11:06
[2019-09-20 12:05] VITALS: BP 97/38
--- NOTE | 2019-09-20 12:06 | General Progress Note ---
Assessment/Plan Assessment/Plan: Assessment - colonoscopy negative to hepatic flexure - diarrhea - presumed TF related - abnormal LFT - Anemia - leukocytosis - stool OB (+) - EGD --> gastritis - Renal failure - Anasarca - resp failure, trach - dysphagia, GT - encephalopathy, contracted - poor px Recommendations - Continue TF - Elevate HOB - f/u labs - PPI - abx - supportive care Subjective Allergies: Coded Allergies: No Known Allergies (Unverified , 06/10/19) Subjective Above noted no events tolerating TF Objective Last 24 Hour Vital Signs Date Time Temp Pulse Resp B/P (MAP) Pulse Ox O2 Delivery O2 Flow Rate FiO2 09/20/19 12:03 24 09/20/19 12:01 Mechanical Ventilator 09/20/19 10:59 64 12 24 09/20/19 09:02 66 12 24 09/20/19 08:38 76 128/57 09/20/19 08:38 128/57 09/20/19 08:00 98.1 76 22 128/57 (80) 100 09/20/19 08:00 Mechanical Ventilator 09/20/19 08:00 74 09/20/19 08:00 24 09/20/19 07:12 75 15 24 09/20/19 04:34 75 13 24 09/20/19 04:00 24 09/20/19 04:00 98.1 78 12 129/69 (89) 99 09/20/19 04:00 Mechanical Ventilator 09/20/19 03:40 77 09/20/19 02:56 74 16 24 09/20/19 00:41 75 14 24 09/20/19 00:00 24 09/20/19 00:00 Mechanical Ventilator 09/20/19 00:00 97.5 75 14 127/52 (77) 99 09/19/19 23:27 77 09/19/19 23:27 77 09/19/19 22:47 78 13 24 09/19/19 20:53 85 20 24 09/19/19 20:46 84 107/47 09/19/19 20:00 Mechanical Ventilator 09/19/19 20:00 98.2 84 18 107/47 (67) 99 09/19/19 20:00 24 09/19/19 19:05 80 15 24 09/19/19 17:42 97.9 09/19/19 16:56 75 09/19/19 16:38 74 12 24 09/19/19 16:00 Mechanical Ventilator 09/19/19 16:00 99.0 78 17 154/89 (110) 100 09/19/19 16:00 24 09/19/19 14:55 69 12 24 09/19/19 13:29 71 13 24 09/19/19 12:15 72 Intake and Output 09/19/19 09/20/19 19:00 07:00 Intake Total 690 ml 650 ml Output Total 30 ml 2150 ml Balance 660 ml -1500 ml Free Water 90 ml 50 ml Tube Feeding 600 ml 600 ml Stool Total 30 ml 150 ml Hemodialysis UF 2000 ml Laboratory Tests 09/19/19 17:06: POC Whole Blood Glucose 131H 09/20/19 11:49: POC Whole Blood Glucose 146H Height (Feet): 5 Height (Inches): 10.00 Weight (Pounds): 120 Objective Debilitated AA man NCAT (+) trach coarse BS RR abd distended, anasarca, (+) GT ext (+) edema contracted Ronny Mustafa MD Sep 20, 2019 12:06
--- NOTE | 2019-09-20 12:09 | General Progress Note ---
Assessment/Plan Assessment/Plan: IMPRESSION: 1. anemia. 2. GI bleed. 3. Leukocytosis. 4. Probable sepsis. + BCX 5. Acute on chronic renal failure. 6. Hyponatremia. 7. Severe protein-calorie malnutrition. 8. Significantly elevated C-reactive protein concerning for infectious etiology. 9. Tracheostomy, G-tube. 10. Ventilator dependence. 11. anasarca with bilateral pleural effusion 12. Hematuria 13. V pacing PLAN needs placement care noted on vent/ no wean surgical follow up monitor labs and adjust RX ID follow up monitor renal function: HD prognosis poor impression, plan, and exam edited and reviewed in detail care discussed with RN Subjective Allergies: Coded Allergies: No Known Allergies (Unverified , 06/10/19) Subjective remains ill on vent on HD Objective Last 24 Hour Vital Signs Date Time Temp Pulse Resp B/P (MAP) Pulse Ox O2 Delivery O2 Flow Rate FiO2 09/20/19 12:05 98.1 66 22 97/38 (57) 99 09/20/19 12:03 24 09/20/19 12:01 Mechanical Ventilator 09/20/19 10:59 64 12 24 09/20/19 09:02 66 12 24 09/20/19 08:38 76 128/57 09/20/19 08:38 128/57 09/20/19 08:00 98.1 76 22 128/57 (80) 100 09/20/19 08:00 Mechanical Ventilator 09/20/19 08:00 74 09/20/19 08:00 24 09/20/19 07:12 75 15 24 09/20/19 04:34 75 13 24 09/20/19 04:00 24 09/20/19 04:00 98.1 78 12 129/69 (89) 99 09/20/19 04:00 Mechanical Ventilator 09/20/19 03:40 77 09/20/19 02:56 74 16 24 09/20/19 00:41 75 14 24 09/20/19 00:00 24 09/20/19 00:00 Mechanical Ventilator 09/20/19 00:00 97.5 75 14 127/52 (77) 99 09/19/19 23:27 77 09/19/19 23:27 77 09/19/19 22:47 78 13 24 09/19/19 20:53 85 20 24 09/19/19 20:46 84 107/47 8/11/20 20:00 Mechanical Ventilator 09/19/19 20:00 98.2 84 18 107/47 (67) 99 09/19/19 20:00 24 09/19/19 19:05 80 15 24 09/19/19 17:42 97.9 09/19/19 16:56 75 09/19/19 16:38 74 12 24 09/19/19 16:00 Mechanical Ventilator 09/19/19 16:00 99.0 78 17 154/89 (110) 100 09/19/19 16:00 24 09/19/19 14:55 69 12 24 09/19/19 13:29 71 13 24 09/19/19 12:15 72 Intake and Output 09/19/19 09/20/19 18:59 06:59 Intake Total 690 ml 650 ml Output Total 30 ml 2150 ml Balance 660 ml -1500 ml Free Water 90 ml 50 ml Tube Feeding 600 ml 600 ml Stool Total 30 ml 150 ml Hemodialysis UF 2000 ml Laboratory Tests 09/19/19 17:06: POC Whole Blood Glucose 131H 09/20/19 11:49: POC Whole Blood Glucose 146H Height (Feet): 5 Height (Inches): 10.00 Weight (Pounds): 120 Objective GENERAL: Ill-appearing male, chronically debilitated. HEENT: Tracheostomy in midline. Questionable fullness in the submandibular region. LUNGS: Coarse breath sounds. reduced breath sounds CARDIAC: S1, S2. Regular rate and rhythm. ABDOMEN: Soft. G-tube. EXTREMITIES: With noted edema. NEUROLOGICAL: Poorly responsive, weak diffusely. Kain Ramirez MD Sep 20, 2019 12:09
--- NOTE | 2019-09-20 13:00 | NUR ---
NURSE NOTES: Oral care done.tracheal /oral suctioning done PRN.Pulled up turned and repositioned .
--- NOTE | 2019-09-20 14:08 | Nephrology Progress Note ---
Assessment/Plan Plan Smoldering Sepsis - IV Abx Established ESRD - HD now TTS. Subjective Subjective Obtunded. Objective Objective Last 24 Hour Vital Signs Date Time Temp Pulse Resp B/P (MAP) Pulse Ox O2 Delivery O2 Flow Rate FiO2 09/20/19 12:41 67 13 24 09/20/19 12:05 98.1 66 22 97/38 (57) 99 09/20/19 12:03 24 09/20/19 12:01 Mechanical Ventilator 09/20/19 12:00 65 09/20/19 10:59 64 12 24 09/20/19 09:02 66 12 24 09/20/19 08:38 76 128/57 09/20/19 08:38 128/57 09/20/19 08:00 98.1 76 22 128/57 (80) 100 09/20/19 08:00 Mechanical Ventilator 09/20/19 08:00 74 09/20/19 08:00 24 09/20/19 07:12 75 15 24 09/20/19 04:34 75 13 24 09/20/19 04:00 24 09/20/19 04:00 98.1 78 12 129/69 (89) 99 09/20/19 04:00 Mechanical Ventilator 09/20/19 03:40 77 09/20/19 02:56 74 16 24 09/20/19 00:41 75 14 24 09/20/19 00:00 24 09/20/19 00:00 Mechanical Ventilator 09/20/19 00:00 97.5 75 14 127/52 (77) 99 09/19/19 23:27 77 09/19/19 23:27 77 09/19/19 22:47 78 13 24 09/19/19 20:53 85 20 24 09/19/19 20:46 84 107/47 09/19/19 20:00 Mechanical Ventilator 09/19/19 20:00 98.2 84 18 107/47 (67) 99 09/19/19 20:00 24 09/19/19 19:05 80 15 24 09/19/19 17:42 97.9 09/19/19 16:56 75 09/19/19 16:38 74 12 24 09/19/19 16:00 Mechanical Ventilator 09/19/19 16:00 99.0 78 17 154/89 (110) 100 09/19/19 16:00 24 09/19/19 14:55 69 12 24 Intake and Output 09/19/19 09/20/19 19:00 07:00 Intake Total 690 ml 650 ml Output Total 30 ml 2150 ml Balance 660 ml -1500 ml Free Water 90 ml 50 ml Tube Feeding 600 ml 600 ml Stool Total 30 ml 150 ml Hemodialysis UF 2000 ml Laboratory Tests 09/19/19 17:06: POC Whole Blood Glucose 131H 09/20/19 11:49: POC Whole Blood Glucose 146H Height (Feet): 5 Height (Inches): 10.00 Weight (Pounds): 120 Objective CV RR Trach clean Lungs CTA New Perma Cath RIJ. Old Femoral Rancho still in Rt. Groin! Abd SNT. BS + E No CCE Erica Pichardo MD Sep 20, 2019 14:08
--- NOTE | 2019-09-20 15:12 | NUR ---
CASE MANAGEMENT: REVIEW SI: PNA . ESRD on HD . CHRONIC LEUKOCYTOSIS T 98.1 HR 66 RR 22 BP 97/38 SAT 99% MECH VENT FIO2 24 GLUCOSE 146 IS: EPOETIN SUBQ QMWF HEPARIN IV PRN HD NOVOLOG SUBQ Q6HR HD NEEDED STEP DOWN UNIT STATUS DCP: PATIENT HAS BEEN ACCEPTED TO [facility]; PENDING OUTPATIENT HD ARRANGEMENT PATIENT HAS BEEN ACCEPTED TO [facility]; PENDING WBC WITHIN NORMAL LIMITS
--- NOTE | 2019-09-20 15:15 | NUR ---
INSURANCE UPDATED CLINICALS/REVIEW FAXED TO [facility] / [facility] REF# [id number] RIC:HARPER P:[phone] F:[phone]
[2019-09-20 16:00] VITALS: BP 107/50
--- NOTE | 2019-09-20 17:00 | NUR ---
NURSE NOTES: Pt stable no resp distress presented during the shift.
--- NOTE | 2019-09-20 18:54 | NUR ---
RESPIRATORY NOTE: Received pt on AC 12, 550VT, 24%, PEEP +5. Pt is trach-dependent w/ a cuffed, Portex 8 tube. Pt asleep/obtunded. B/S ovi. rhonchi, sxn small amounts of thick/thin, pale-yellow secretions. Vent plugged into red outlet, ambubag at bedside. Pt in no apparent distress at this time. Will continue plan of care.
--- NOTE | 2019-09-20 19:37 | NUR ---
NURSE HAND-OFF REPORT: Important Events on Shift:N/A Patient Status: Stable Diet: Vital AF1.2 at 50 ml/hr per GT Pending Orders: N/A Pending Results/Labs:N/A Pending MD notification:N/A Latest Vital Signs: Temperature 98.8 , Pulse 68 , B/P 107 /50 , Respiratory Rate 12 , O2 SAT 100 , Mechanical Ventilator, O2 Flow Rate 15.0 . Vital Sign Comment: [] EKG Rhythm: V-Paced Rhythm change?: N MD Notified?: N - MD Response: Latest Delacruz Fall Score: 70 Fall Risk: High Risk Safety Measures: Call light Within Reach, Bed Alarm Zone 2, Side Rails Side Rails x3, Bed position Low and Locked. Fall Precautions: Yellow Socks Yellow Gown Door Sign Patient Fall Education Report given to Deep Batista RN.
--- NOTE | 2019-09-20 19:38 | NUR ---
NURSE NOTES: Received patient's report from TAMICA Ennis. Patient is on bed with open eyes. No s/s of respiratory distress noted. Patient is on vent. Pt is on g-tube, vital AF 1.5 @ 50mL/HR running. Patient is on rectal tube, greenish brown color noted. IV site, clean and intact noted. Call-light within reach. Bed is low and locked. Will continue to monitor with plan of care.
[2019-09-20] MEDS: Dyna-Hex 2% Top Sol 2oz TOPIC SCH (20:47)
[2019-09-20] MEDS: Atorvastatin 20mg tab GT SCH (20:48)
[2019-09-20] MEDS: Epoetin Alfa-EPBX(ESRD on dialysis)10,000 unit/ml vial SUBQ SCH (20:58)
[2019-09-21] VITALS: BP 119/52
[2019-09-21] MEDS: NovoLOG Insulin Flexpen SUBQ SCH ×4 (00:11→17:05)
[2019-09-21 04:00] VITALS: BP 154/72
--- NOTE | 2019-09-21 05:15 | NUR ---
NURSE NOTES: remote broadcast technician is at bed side. Begin to hemodialysis.
[2019-09-21 05:33] LABS: ANION GAP 8 mmol/L (5-15); BLOOD UREA NITROGEN 63 mg/dL (7-18); CALCIUM 8.8 MG/DL (8.5-10.1); CARBON DIOXIDE 29 MMOL/L (21-32); CHLORIDE 96 MMOL/L (98-107); CREATININE 3.6 MG/DL (0.55-1.30); PHOSPHORUS 3.4 MG/DL (2.5-4.9); POTASSIUM 3.2 MMOL/L (3.5-5.1); SODIUM 133 MMOL/L (136-145)
[2019-09-21 05:37] LABS: BASOPHILS % (AUTO) 0.8 % (0.0-2.0); EOSINOPHILS % (AUTO) 14.9 % (0.0-3.0); HEMATOCRIT 28.8 % (42.0-52.0); HEMOGLOBIN 8.9 G/DL (14.2-18.0); LYMPHOCYTES % (AUTO) 20.2 % (20.0-45.0); MEAN CORPUSCULAR VOLUME 86 FL (80-99); MONOCYTES % (AUTO) 8.6 % (1.0-10.0); NEUTROPHILS % (AUTO) 55.6 % (45.0-75.0); PLATELET COUNT 393 K/UL (150-450); RED BLOOD COUNT 3.36 M/UL (4.70-6.10); RED CELL DISTRIBUTION WIDTH 19.5 % (11.6-14.8); WHITE BLOOD COUNT 17.8 K/UL (4.8-10.8)
[2019-09-21] MEDS ORDERED: Heparin 1000 units/ml 1ml Vial INJ PRN (06:00)
[2019-09-21] MEDS ORDERED: Heparin Sod 1000 units/ml 10ml IV PRN (06:00)
--- NOTE | 2019-09-21 07:20 | NUR ---
NURSE NOTES: Received patient form TAMICA Worley. Patient is obtunded, vss, on fiber designer, with no acute distress. patient is clean, contracted extremities, trach to vent, and currently on dialysis. Vent settings AC 12, TV 550, Fia2 24%, and PEEP of 5. G-tube with clean dressing running Vital AF 1.2 at 50mL/hr. Patient has a rectal tube draining to gravity with liquid light brown stool. Patient has a sacral stage 2, bilateral heel DTI, elbow stage 2, and scrotum skin breakdown mainly on the left side. Dialysis access on the right subclavian Perma-cath with clean dressing. IV site right forearm 18g patent with no sign of infection. Bed at its lowest position. call light in reach and x3 bed rails are up. Will continue to monitor patient .
--- NOTE | 2019-09-21 07:39 | NUR ---
NURSE HAND-OFF REPORT: Important Events on Shift:N Patient Status: Stable Diet: Vital AF 1.2 50mL/HR Pending Orders: N Pending Results/Labs: Pending MD notification: Latest Vital Signs: Temperature 98.1 , Pulse 74 , B/P 154 /72 , Respiratory Rate 15 , O2 SAT 99 , Mechanical Ventilator, O2 Flow Rate 15.0 . Vital Sign Comment: Stable EKG Rhythm: V-Paced Rhythm change?: N MD Notified?: N - MD Response: Latest Delacruz Fall Score: 70 Fall Risk: High Risk Safety Measures: Call light Within Reach, Bed Alarm Zone 2, Side Rails Side Rails x3, Bed position Low and Locked. Fall Precautions: Yellow Socks Yellow Gown Door Sign Patient Fall Education Report given to TAMICA Celeste.
[2019-09-21 08:00] VITALS: BP 143/57
[2019-09-21] MEDS: Zinc Oxide Oint 2oz TOPIC SCH ×2 (08:41→17:04)
[2019-09-21] MEDS: Minoxidil 2.5mg tab GT SCH (08:42)
[2019-09-21] MEDS: Metoprolol Tartrate 100mg tab GT SCH ×2 (08:42→21:00)
[2019-09-21] MEDS: Lactobacillus-GG tablet GT SCH ×2 (08:45→17:23)
--- NOTE | 2019-09-21 09:27 | Surgery Progress Note ---
Surgery Progress Note Subjective Procedure Performed Right femoral temporary hemodialysis catheter removal Additional Comments no acute events note: late entry for patient seen 09/19 but because of surgeries was unable to complete note until later. Objective Last 24 Hour Vital Signs Date Time Temp Pulse Resp B/P (MAP) Pulse Ox O2 Delivery O2 Flow Rate FiO2 09/21/19 08:42 72 143/57 09/21/19 08:42 143/57 09/21/19 08:39 77 15 24 09/21/19 08:00 Mechanical Ventilator 09/21/19 08:00 24 09/21/19 08:00 97.7 72 16 143/57 (85) 97 09/21/19 06:50 74 15 24 09/21/19 05:00 66 12 24 09/21/19 04:00 24 09/21/19 04:00 98.1 71 12 154/72 (99) 99 09/21/19 04:00 Mechanical Ventilator 09/21/19 03:38 68 09/21/19 03:01 69 12 24 09/21/19 00:53 71 12 24 09/21/19 00:00 Mechanical Ventilator 09/21/19 00:00 97.7 69 12 119/52 (74) 100 09/21/19 00:00 24 09/20/19 23:27 69 09/20/19 22:55 70 12 24 09/20/19 20:53 67 123/54 09/20/19 20:51 74 12 24 09/20/19 20:00 Mechanical Ventilator 09/20/19 19:00 74 09/20/19 18:51 68 12 24 09/20/19 17:28 70 13 24 09/20/19 16:00 69 09/20/19 16:00 98.8 71 20 107/50 (69) 100 09/20/19 16:00 Mechanical Ventilator 09/20/19 16:00 24 09/20/19 15:16 68 12 24 09/20/19 12:41 67 13 24 09/20/19 12:05 98.1 66 22 97/38 (57) 99 09/20/19 12:03 24 09/20/19 12:01 Mechanical Ventilator 09/20/19 12:00 65 09/20/19 10:59 64 12 24 I&O Intake and Output 09/20/19 09/21/19 19:00 07:00 Intake Total 940 ml 610 ml Output Total 1 ml 0 ml Balance 939 ml 610 ml Free Water 200 ml Tube Feeding 500 ml 550 ml Other 240 ml 60 ml Output Urine Total 1 ml Stool Total 0 ml # Bowel Movements 100 Dressing: other Wound: other Cardiovascular: RSR Respiratory: decreased breath sounds Abdomen: soft, non-tender, present bowel sounds Extremities: no cyanosis Laboratory Tests Test 09/20/19 11:49 09/20/19 17:08 09/21/19 03:20 POC Whole Blood Glucose 146 MG/DL (74-106) H Pending White Blood Count 17.8 K/UL (4.8-10.8) H Red Blood Count 3.36 M/UL (4.70-6.10) L Hemoglobin 8.9 G/DL (14.2-18.0) L Hematocrit 28.8 % (42.0-52.0) L Mean Corpuscular Volume 86 FL (80-99) Mean Corpuscular Hemoglobin 26.5 PG (27.0-31.0) L Mean Corpuscular Hemoglobin Concent 31.0 G/DL (32.0-36.0) L Red Cell Distribution Width 19.5 % (11.6-14.8) H Platelet Count 393 K/UL (150-450) Mean Platelet Volume 7.2 FL (6.5-10.1) Neutrophils (%) (Auto) 55.6 % (45.0-75.0) Lymphocytes (%) (Auto) 20.2 % (20.0-45.0) Monocytes (%) (Auto) 8.6 % (1.0-10.0) Eosinophils (%) (Auto) 14.9 % (0.0-3.0) H Basophils (%) (Auto) 0.8 % (0.0-2.0) Sodium Level 133 MMOL/L (136-145) L Potassium Level 3.2 MMOL/L (3.5-5.1) L Chloride Level 96 MMOL/L (98-107) L Carbon Dioxide Level 29 MMOL/L (21-32) Anion Gap 8 mmol/L (5-15) Blood Urea Nitrogen 63 mg/dL (7-18) H Creatinine 3.6 MG/DL (0.55-1.30) H Estimat Glomerular Filtration Rate 16.5 mL/min (>60) Glucose Level 129 MG/DL (74-106) H Calcium Level 8.8 MG/DL (8.5-10.1) Phosphorus Level 3.4 MG/DL (2.5-4.9) Plan Problems: (1) Anemia (2) Hyponatremia (3) Leukocytosis Assessment & Plan: Tracheostomy, left chest pacemaker are again demonstrated. There is bilateral interstitial and airspace disease and bilateral pleural fluid again demonstrated. This appears more severe than on the prior study. Bilateral interstitial and airspace infiltrates versus edema. Bilateral pleural effusions Leukocytosis, anemia, tachycardia, abnormal labs. Wound evaluated and likely etiology of patient's sepsis. Leukocytosis etiology work-up antibiotics per infectious disease Appreciate nephrology input transfuse with dialysis We will follow with recommendations thank you allowing participation's care plan HD access temp HD discussed with medical teams line okay HD as per renal persistent leukocytosis flow cyto noted improving trending down right fem line removed (4) Ventilator dependent (5) Right lower lobe pneumonia (6) Hypokalemia (7) Hyperkalemia (8) Anasarca (9) Decubitus skin ulcer Assessment & Plan: pt presented on admission with generalized edemae.Skin assessed under tracheostomy and no areas of concerns noted. GT Insertion is marginally erythematous with small amt slough at stoma. Unstageable Pressure Injury R elbow. Base of wound is 100% yellow slough, Borders are erythematous. Wound oozing small amt haemopurulent exudate.Darker skin tone without elevation in skin temp or erythema periwound. Pt's penis and scrotum are grossly edematous and enlarged and weeping serous exudate from numerous sites both from penis and scrotum. Two small open wounds noted at base of at base of shaft of penis ,and contreras aspect of scrotum. Both wounds oozing large amt sanguineous and serosanguineous exudate. Multiple open wounds with Biofilm at base of each wounds noted to contreras/lateral,inferior and posterior aspects of scrotum. These wounds noted to be oozing moderate amts of serosanguineous exudate. Hypertrophic scar with scattered areas of hyperpigmentation noted to Sacrum. DTPI noted to L Buttocks (L)7cm x (W)9cm. Base of wound is purple and indurated.Darker skin tone without erythema, induration or fluctuance R and L ischial tuberosities. Both heels are boggy with non-blanchable erythema. Tx.Plan: Cleanse wound R elbow with Saline. Apply TheraHoney, Apply Moisture Barrier Paste periwound. Cover with Optifoam drsg.Change Daily and prn. Wash GT site with soap and water.Pat dry. Apply Zinc Oxide Paste to GT site Daily. Leave Open to Air. Apply Zinc Oxide Paste to entire Scrotum, Place ABD pads to R and L lateral, and posterior aspects of scrotum TWICE daily. Apply Cavilon Skin Barrier to malleoli and both Heels. Cover each site with Optifoam drsgs. Change every 7 days and prn. Reposition at least every 2hours or as tolerated. Off-load heels with Pillows. APM/BECCA Mattress overlay. (10) Malnutrition Assessment & Plan: DAILY ESTIMATED NEEDS: Needs based on Renal, critical care, wound/ 61kg 22-30 kcals/kg [id number] total kcals 1.25-2 g protein/kg 76-122 g total protein Fluid per MD, now on HD mL/kg . total fluid mLs NUTRITION DIAGNOSIS: * Swallowing difficulty R/T respiratory failure, dysphagia as evidenced by trach/vent dep, PEG dep * Increased kcal/prot needs R/T wound healing as evidenced by admitted w/ multiple pressure injuries including full thickness wounds at junction of Shaft of penis, dorsal scrotum, R elbow, and DTPI @ L buttocks. CURRENT TF:Vital AF 1.2 @ 50ml/hr x 24 hrs + Garo BID ENTERAL NUTRITION RECOMMENDATIONS: Vital AF 1.2 @ 50ml/hr x 24 hrs to provide 1200ml, 1440kcal,9 0g prot, 973ml free water * Maintain elemental TF of Vital AF 1.2 w/ continued diarrhea -> monitor lytes and renal fxn closely, monitor need for renal TF -> TF @ goal will provide 1642mg K and 2025mg Phos * HOB over 30 degrees/ water flush per MD * Continue Garo BID via PEG (11) Uremia (12) CKD (chronic kidney disease) stage 5, GFR less than 15 ml/min (13) Colon distention Assessment & Plan: discussed with GI likely functional as having lots of loose bm rectal tube kub f/u s/p colonoscopy - findings reviewed with GI Marked distention of the sigmoid colon. 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 No evidence of bowel wall thickening or pneumatosis 12 mm focus of contrast enhancement in the right pectineus muscle. While nonspecific in appearance, appearance raises concern for a possible pseudoaneurysm. Ill- defined thickening of the pectus medius muscle could indicate some intramuscular hemorrhage. The above findings were phoned to Dr. Urias at the time of interpretation Large bilateral pleural effusions Hazy pulmonary parenchymal opacities as well as dense consolidative opacities most likely represent pulmonary edema, but could represent pneumonia Evidence of anasarca elsewhere, with generalized edema of the subcutaneous fat Bladder wall thickening, raises concern for cystitis. Avalos catheter in place Colonic diverticulosis. No evidence of diverticulitis. Tracheostomy Pacemaker Gastrostomy Jonathan Urias Sep 21, 2019 09:27
--- NOTE | 2019-09-21 09:36 | General Progress Note ---
Assessment/Plan Assessment/Plan: Assessment - colonoscopy negative to hepatic flexure - diarrhea - presumed TF related - abnormal LFT - Anemia - leukocytosis - stool OB (+) - EGD --> gastritis - Renal failure - Anasarca - resp failure, trach - dysphagia, GT - encephalopathy, contracted - poor px Recommendations - Continue TF - Elevate HOB - f/u labs - PPI - abx - supportive care Subjective Allergies: Coded Allergies: No Known Allergies (Unverified , 06/10/19) Subjective Above noted no events tolerating TF Objective Last 24 Hour Vital Signs Date Time Temp Pulse Resp B/P (MAP) Pulse Ox O2 Delivery O2 Flow Rate FiO2 09/21/19 08:42 72 143/57 09/21/19 08:42 143/57 09/21/19 08:39 77 15 24 09/21/19 08:00 Mechanical Ventilator 09/21/19 08:00 24 09/21/19 08:00 97.7 72 16 143/57 (85) 97 09/21/19 06:50 74 15 24 09/21/19 05:00 66 12 24 09/21/19 04:00 24 09/21/19 04:00 98.1 71 12 154/72 (99) 99 09/21/19 04:00 Mechanical Ventilator 09/21/19 03:38 68 09/21/19 03:01 69 12 24 09/21/19 00:53 71 12 09/21/19 00:00 Mechanical Ventilator 09/21/19 00:00 97.7 69 12 119/52 (74) 100 09/21/19 00:00 24 09/20/19 23:27 69 09/20/19 22:55 70 12 24 09/20/19 20:53 67 123/54 09/20/19 20:51 74 12 24 09/20/19 20:00 Mechanical Ventilator 09/20/19 19:00 74 09/20/19 18:51 68 12 24 09/20/19 17:28 70 13 24 09/20/19 16:00 69 09/20/19 16:00 98.8 71 20 107/50 (69) 100 09/20/19 16:00 Mechanical Ventilator 09/20/19 16:00 24 09/20/19 15:16 68 12 24 09/20/19 12:41 67 13 24 09/20/19 12:05 98.1 66 22 97/38 (57) 99 09/20/19 12:03 24 09/20/19 12:01 Mechanical Ventilator 09/20/19 12:00 65 09/20/19 10:59 64 12 24 Intake and Output 09/20/19 09/21/19 19:00 07:00 Intake Total 940 ml 610 ml Output Total 1 ml 0 ml Balance 939 ml 610 ml Free Water 200 ml Tube Feeding 500 ml 550 ml Other 240 ml 60 ml Output Urine Total 1 ml Stool Total 0 ml # Bowel Movements 100 Laboratory Tests 09/20/19 11:49: POC Whole Blood Glucose 146H 09/20/19 17:08: POC Whole Blood Glucose [Pending] 09/21/19 03:20: White Blood Count 17.8H, Red Blood Count 3.36L, Hemoglobin 8.9L, Hematocrit 28.8L, Mean Corpuscular Volume 86, Mean Corpuscular Hemoglobin 26.5L, Mean Corpuscular Hemoglobin Concent 31.0L, Red Cell Distribution Width 19.5H, Platelet Count 393, Mean Platelet Volume 7.2, Neutrophils (%) (Auto) 55.6, Lymphocytes (%) (Auto) 20.2, Monocytes (%) (Auto) 8.6, Eosinophils (%) (Auto) 14.9H, Basophils (%) (Auto) 0.8, Sodium Level 133L, Potassium Level 3.2L, Chloride Level 96L, Carbon Dioxide Level 29, Anion Gap 8, Blood Urea Nitrogen 63H, Creatinine 3.6H, Estimat Glomerular Filtration Rate 16.5, Glucose Level 129H, Calcium Level 8.8, Phosphorus Level 3.4 Height (Feet): 5 Height (Inches): 10.00 Weight (Pounds): 119 Objective Debilitated AA man NCAT (+) trach coarse BS RR abd distended, anasarca, (+) GT ext (+) edema contracted Ronny Mustafa MD Sep 21, 2019 09:36
--- NOTE | 2019-09-21 09:58 | Infectious Diseases Prog Note ---
Assessment/Plan Assessment/Plan A: 1. Pneumonia treated COVID19 X2 : negative 2. Renal failure,Stage V 3. Leukocytosis improving 4. Respiratory failure, Ventilator dependent 5. Anemia 6. Anasarca 7. 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 Klebsiella catheter infection s/p removal 10. Leukocytosis PLAN: 1. Observe off of antibiotic Subjective ROS Limited/Unobtainable: Yes Constitutional: Denies: fever Allergies: Coded Allergies: No Known Allergies (Unverified , 06/10/19) Objective Last 24 Hour Vital Signs Date Time Temp Pulse Resp B/P (MAP) Pulse Ox O2 Delivery O2 Flow Rate FiO2 09/21/19 08:42 72 143/57 09/21/19 08:42 143/57 09/21/19 08:39 77 15 24 09/21/19 08:00 Mechanical Ventilator 09/21/19 08:00 24 09/21/19 08:00 97.7 72 16 143/57 (85) 97 09/21/19 06:50 74 15 24 09/21/19 05:00 66 12 24 09/21/19 04:00 24 09/21/19 04:00 98.1 71 12 154/72 (99) 99 09/21/19 04:00 Mechanical Ventilator 09/21/19 03:38 68 09/21/19 03:01 69 12 24 09/21/19 00:53 71 12 24 09/21/19 00:00 Mechanical Ventilator 09/21/19 00:00 97.7 69 12 119/52 (74) 100 09/21/19 00:00 24 09/20/19 23:27 69 09/20/19 22:55 70 12 24 09/20/19 20:53 67 123/54 09/20/19 20:51 74 12 24 09/20/19 20:00 Mechanical Ventilator 09/20/19 19:00 74 09/20/19 18:51 68 12 24 09/20/19 17:28 70 13 24 09/20/19 16:00 69 09/20/19 16:00 98.8 71 20 107/50 (69) 100 09/20/19 16:00 Mechanical Ventilator 09/20/19 16:00 24 09/20/19 15:16 68 12 24 09/20/19 12:41 67 13 24 09/20/19 12:05 98.1 66 22 97/38 (57) 99 09/20/19 12:03 24 09/20/19 12:01 Mechanical Ventilator 09/20/19 12:00 65 09/20/19 10:59 64 12 24 Height (Feet): 5 Height (Inches): 10.00 Weight (Pounds): 119 HEENT: mucous membranes moist, status post trach Respiratory/Chest: decreased breath sounds, other - on ventilator Cardiovascular: normal rate Abdomen: soft, non tender, other - GT feeding Extremities: no edema Neurologic/Psychiatric: aphasia, other - opens eyes Laboratory Tests Test 09/20/19 11:49 09/20/19 17:08 09/21/19 03:20 POC Whole Blood Glucose 146 MG/DL (74-106) H Pending White Blood Count 17.8 K/UL (4.8-10.8) H Red Blood Count 3.36 M/UL (4.70-6.10) L Hemoglobin 8.9 G/DL (14.2-18.0) L Hematocrit 28.8 % (42.0-52.0) L Mean Corpuscular Volume 86 FL (80-99) Mean Corpuscular Hemoglobin 26.5 PG (27.0-31.0) L Mean Corpuscular Hemoglobin Concent 31.0 G/DL (32.0-36.0) L Red Cell Distribution Width 19.5 % (11.6-14.8) H Platelet Count 393 K/UL (150-450) Mean Platelet Volume 7.2 FL (6.5-10.1) Neutrophils (%) (Auto) 55.6 % (45.0-75.0) Lymphocytes (%) (Auto) 20.2 % (20.0-45.0) Monocytes (%) (Auto) 8.6 % (1.0-10.0) Eosinophils (%) (Auto) 14.9 % (0.0-3.0) H Basophils (%) (Auto) 0.8 % (0.0-2.0) Sodium Level 133 MMOL/L (136-145) L Potassium Level 3.2 MMOL/L (3.5-5.1) L Chloride Level 96 MMOL/L (98-107) L Carbon Dioxide Level 29 MMOL/L (21-32) Anion Gap 8 mmol/L (5-15) Blood Urea Nitrogen 63 mg/dL (7-18) H Creatinine 3.6 MG/DL (0.55-1.30) H Estimat Glomerular Filtration Rate 16.5 mL/min (>60) Glucose Level 129 MG/DL (74-106) H Calcium Level 8.8 MG/DL (8.5-10.1) Phosphorus Level 3.4 MG/DL (2.5-4.9) Current Medications Medications (Trade) Dose Ordered Sig/Leonel Route PRN Reason Start Time Stop Time Status Last Admin Dose Admin Acetaminophen (Tylenol) 650 mg Q4H PRN GT Mild Pain (Pain Scale 1-3) 09/09/19 00:45 10/09/19 00:44 09/19/19 17:12 Atorvastatin Calcium (Lipitor) 40 mg BEDTIME GT 08/09/19 21:00 11/07/19 20:59 09/20/19 20:48 Chlorhexidine Gluconate (Felipa-Hex 2%) 1 applic DAILY@199909/12/19 20:00 12/11/19 19:59 09/20/19 20:47 Clonidine HCl (Catapres Tab) 0.1 mg Q4H PRN GT For High Blood Pressure 09/09/19 12:30 12/08/19 05:29 09/15/19 04:10 Dextrose (Dextrose 50%) 25 ml Q30M PRN IV Hypoglycemia 08/09/19 07:30 11/07/19 07:29 Dextrose (Dextrose 50%) 50 ml Q30M PRN IV Hypoglycemia 08/09/19 07:30 11/07/19 07:29 Epoetin Andreas (Epoetin Andreas(ESRD on dialysis)) 10,000 unit WED-WED-WED SUBQ 09/20/19 21:00 12/19/19 20:59 09/20/19 20:58 Famotidine (Pepcid) 20 mg DAILY GT 08/30/19 09:00 11/28/19 08:59 09/21/19 08:42 Heparin Sodium (Porcine) (Heparin Sod 1000 units/ml 10ml) 2,000 unit ONCE PRN IV HD 09/21/19 06:00 09/21/19 23:59 Heparin Sodium (Porcine) (Heparin) 1,000 unit POSTHD PRN INJ POST HD 09/21/19 06:00 09/21/19 23:59 Insulin Aspart (NovoLOG) Q6HR SUBQ 08/10/19 00:00 11/07/19 11:29 09/21/19 00:11 Lactobacillus Acidophilus (Culturelle) 1 tab TWICE A DAY GT 09/14/19 18:00 12/13/19 17:59 09/21/19 08:45 Metoprolol Tartrate (Lopressor) 200 mg Q12HR GT 08/09/19 09:00 11/07/19 08:59 09/21/19 08:42 Minoxidil (Loniten) 5 mg DAILY GT 08/09/19 09:00 11/07/19 08:59 09/21/19 08:42 Sodium Chloride 1,000 ml @ 500 mls/hr Q2H PRN IVLG sbp<90 during hd 09/21/19 06:00 09/21/19 23:59 Zinc Oxide (Zinc Oxide) 1 applic BID TOPIC 08/10/19 18:00 11/08/19 17:59 09/21/19 08:41 Real De Leon MD Sep 21, 2019 09:58
[2019-09-21 12:00] VITALS: BP 110/52
--- NOTE | 2019-09-21 13:28 | Nephrology Progress Note ---
Assessment/Plan Plan Smoldering Sepsis - IV Abx Established ESRD - HD now TTS. Subjective Subjective Obtunded. Objective Objective Last 24 Hour Vital Signs Date Time Temp Pulse Resp B/P (MAP) Pulse Ox O2 Delivery O2 Flow Rate FiO2 09/21/19 12:30 65 12 24 09/21/19 11:08 62 12 24 09/21/19 08:42 72 143/57 09/21/19 08:42 143/57 09/21/19 08:39 77 15 24 09/21/19 08:00 Mechanical Ventilator 09/21/19 08:00 24 09/21/19 08:00 97.7 72 16 143/57 (85) 97 09/21/19 07:31 72 09/21/19 06:50 74 15 24 09/21/19 05:00 66 12 24 09/21/19 04:00 24 09/21/19 04:00 98.1 71 12 154/72 (99) 99 09/21/19 04:00 Mechanical Ventilator 09/21/19 03:38 68 09/21/19 03:01 69 12 24 09/21/19 00:53 71 12 24 09/21/19 00:00 Mechanical Ventilator 09/21/19 00:00 97.7 69 12 119/52 (74) 100 09/21/19 00:00 24 09/20/19 23:27 69 09/20/19 22:55 70 12 24 09/20/19 20:53 67 123/54 09/20/19 20:51 74 12 24 09/20/19 20:00 Mechanical Ventilator 09/20/19 19:00 74 09/20/19 18:51 68 12 24 09/20/19 17:28 70 13 24 09/20/19 16:00 69 09/20/19 16:00 98.8 71 20 107/50 (69) 100 09/20/19 16:00 Mechanical Ventilator 09/20/19 16:00 24 09/20/19 15:16 68 12 24 Intake and Output 09/20/19 09/21/19 19:00 07:00 Intake Total 940 ml 610 ml Output Total 1 ml 0 ml Balance 939 ml 610 ml Free Water 200 ml Tube Feeding 500 ml 550 ml Other 240 ml 60 ml Output Urine Total 1 ml Stool Total 0 ml # Bowel Movements 100 Laboratory Tests 09/20/19 17:08: POC Whole Blood Glucose [Pending] 09/21/19 03:20: White Blood Count 17.8H, Red Blood Count 3.36L, Hemoglobin 8.9L, Hematocrit 28.8L, Mean Corpuscular Volume 86, Mean Corpuscular Hemoglobin 26.5L, Mean Corpuscular Hemoglobin Concent 31.0L, Red Cell Distribution Width 19.5H, Platelet Count 393, Mean Platelet Volume 7.2, Neutrophils (%) (Auto) 55.6, Lymphocytes (%) (Auto) 20.2, Monocytes (%) (Auto) 8.6, Eosinophils (%) (Auto) 14.9H, Basophils (%) (Auto) 0.8, Sodium Level 133L, Potassium Level 3.2L, Chloride Level 96L, Carbon Dioxide Level 29, Anion Gap 8, Blood Urea Nitrogen 63H, Creatinine 3.6H, Estimat Glomerular Filtration Rate 16.5, Glucose Level 129H, Calcium Level 8.8, Phosphorus Level 3.4 09/21/19 12:16: POC Whole Blood Glucose 158H Height (Feet): 5 Height (Inches): 10.00 Weight (Pounds): 119 Objective CV RR Trach clean Lungs CTA New Perma Cath RIJ. Old Femoral [place] still in Rt. Groin! Abd SNT. BS + E No CCE Erica Pichardo MD Sep 21, 2019 13:28
--- NOTE | 2019-09-21 14:44 | NUR ---
DISCHARGE PLANNING: NOTE PATIENT ACCEPTED TO [facility] RM# 10B (TENTATIVE) [phone] PER [facility] PENDING MARISABEL FROM PROVIDER OUTPATIENT HD RENAL [facility] [phone] CHAIR TIME MWF @ 1300 BEGINNING ON WEDNESDAY S/W [facility] [place] LEFT FOR NCM:REBECA P:[phone] x [phone] F/U ON MARISABEL FOR [facility] Addendum: 09/21/19 at 1448 by Jessy Gonzalez CM [facility] [place] [phone] Addendum: 09/21/19 at 1458 by Jesys Gonzalez CM CALL BACK RECEIVED FROM Rebeca @ [facility]. MAR[facility] IS BEING PROCESSED.TRANSPORTATION IS BEING ARRANGED. DORIS INFORMED HER OF THE CHAIR TIME RECEIVED FROM PIY[facility] Reilly [facility]. CALL PLACED TO [facility] TO CONFIRM DIALYSIS TIME FOR 09/20 (PER THE ORDERS) MS MORA IS TO BE HD NURSE. AWAITING HD APPT CONFIRMATION. Addendum: 09/21/19 at 1507 by Jessy Gonzalez CM CALL BACK RECEIVED FROM KRISTAN MORA HD NURSE. HD COMPLETED DIRECTOR OF STRATEGIC PARTNERSHIPS 09/20 DC PLANNING ONGOING FOR 09/21
--- NOTE | 2019-09-21 14:59 | NUR ---
CASE MANAGEMENT: REVIEW 09/21/2019 SI;SEPSIS. VS: T 99.1 HR 63 RR 17 B/P 110/52 SATS 97% ON MECH VENT FIO2 24 LABS: WBC 17.8 NA 133 K 3.2 CL 96 BUN 62 CR 3.6 GLU 129 IS;LIPITOR PO QHS LONITEN GT QD LOPRESSOR GT Q12H INSULIN ASPART SUBQ Q6H SDU PLAN OF CARE HD 09/20
--- NOTE | 2019-09-21 15:02 | NUR ---
INSURANCE REVIEW AND PROGRESS NOTES FAXED TO [facility] / [facility] REF# [id number] RUSSELLM:HARPER P:[phone] F:[phone]
[2019-09-21 16:00] VITALS: BP 104/49
[2019-09-21] MEDS: Acetaminophen 650mg/20.3ml GT PRN (16:31)
--- NOTE | 2019-09-21 17:35 | General Progress Note ---
Assessment/Plan Assessment/Plan: IMPRESSION: 1. anemia. 2. GI bleed. 3. Leukocytosis. 4. Probable sepsis. + BCX 5. Acute on chronic renal failure. 6. Hyponatremia. 7. Severe protein-calorie malnutrition. 8. Significantly elevated C-reactive protein concerning for infectious etiology. 9. Tracheostomy, G-tube. 10. Ventilator dependence. 11. anasarca with bilateral pleural effusion 12. Hematuria 13. V pacing PLAN needs placement care noted on vent/ no wean surgical follow up monitor labs and adjust RX ID follow up monitor renal function: HD prognosis poor impression, plan, and exam edited and reviewed in detail care discussed with RN Subjective Allergies: Coded Allergies: No Known Allergies (Unverified , 06/10/19) Subjective remains ill on vent on HD Objective Last 24 Hour Vital Signs Date Time Temp Pulse Resp B/P (MAP) Pulse Ox O2 Delivery O2 Flow Rate FiO2 09/21/19 17:01 98.4 09/21/19 16:46 70 12 24 09/21/19 16:00 24 09/21/19 16:00 100.2 68 17 104/49 (67) 98 09/21/19 16:00 Mechanical Ventilator 09/21/19 15:36 68 09/21/19 14:34 68 12 24 09/21/19 12:30 65 12 24 09/21/19 12:00 24 09/21/19 12:00 63 09/21/19 12:00 Mechanical Ventilator 09/21/19 12:00 99.1 63 17 110/52 (71) 97 09/21/19 11:08 62 12 24 09/21/19 08:42 72 143/57 09/21/19 08:42 143/57 09/21/19 08:39 77 15 24 09/21/19 08:00 Mechanical Ventilator 09/21/19 08:00 24 09/21/19 08:00 97.7 72 16 143/57 (85) 97 09/21/19 07:31 72 09/21/19 06:50 74 15 24 09/21/19 05:00 66 12 24 09/21/19 04:00 24 09/21/19 04:00 98.1 71 12 154/72 (99) 99 09/21/19 04:00 Mechanical Ventilator 09/21/19 03:38 68 8/13/20 03:01 69 12 24 09/21/19 00:53 71 12 24 09/21/19 00:00 Mechanical Ventilator 09/21/19 00:00 97.7 69 12 119/52 (74) 100 09/21/19 00:00 24 09/20/19 23:27 69 09/20/19 22:55 70 12 24 09/20/19 20:53 67 123/54 09/20/19 20:51 74 12 24 09/20/19 20:00 Mechanical Ventilator 09/20/19 19:00 74 09/20/19 18:51 68 12 24 Intake and Output 09/20/19 09/21/19 19:00 07:00 Intake Total 940 ml 610 ml Output Total 1 ml 0 ml Balance 939 ml 610 ml Free Water 200 ml Tube Feeding 500 ml 550 ml Other 240 ml 60 ml Output Urine Total 1 ml Stool Total 0 ml # Bowel Movements 100 Laboratory Tests 09/21/19 03:20: White Blood Count 17.8H, Red Blood Count 3.36L, Hemoglobin 8.9L, Hematocrit 28.8L, Mean Corpuscular Volume 86, Mean Corpuscular Hemoglobin 26.5L, Mean Corpuscular Hemoglobin Concent 31.0L, Red Cell Distribution Width 19.5H, Platelet Count 393, Mean Platelet Volume 7.2, Neutrophils (%) (Auto) 55.6, Lymphocytes (%) (Auto) 20.2, Monocytes (%) (Auto) 8.6, Eosinophils (%) (Auto) 14.9H, Basophils (%) (Auto) 0.8, Sodium Level 133L, Potassium Level 3.2L, Chloride Level 96L, Carbon Dioxide Level 29, Anion Gap 8, Blood Urea Nitrogen 63H, Creatinine 3.6H, Estimat Glomerular Filtration Rate 16.5, Glucose Level 129H, Calcium Level 8.8, Phosphorus Level 3.4 09/21/19 12:16: POC Whole Blood Glucose 158H 09/21/19 16:39: POC Whole Blood Glucose 176H Height (Feet): 5 Height (Inches): 10.00 Weight (Pounds): 119 Objective GENERAL: Ill-appearing male, chronically debilitated. HEENT: Tracheostomy in midline. Questionable fullness in the submandibular region. LUNGS: Coarse breath sounds. reduced breath sounds CARDIAC: S1, S2. Regular rate and rhythm. ABDOMEN: Soft. G-tube. EXTREMITIES: With noted edema. NEUROLOGICAL: Poorly responsive, weak diffusely. Kain Ramirez MD Sep 21, 2019 17:35
--- NOTE | 2019-09-21 19:04 | NUR ---
RESPIRATORY NOTE: Received pt on AC 12, 550VT, 24%, PEEP +5. Pt is trach-dependent w/ a cuffed, Portex 8 tube. Pt asleep/obtunded. B/S ovi. rhonchi, sxn small amounts of thick/thin, pale-yellow to perez-yellow secretions. Vent plugged into red outlet, ambubag at bedside. Pt in no apparent distress at this time. Will continue plan of care.
--- NOTE | 2019-09-21 19:35 | NUR ---
NURSE HAND-OFF REPORT: Important Events on Shift:DC planning started Patient Status: Full code Diet: Vital AV 1.2 Pending Orders: N/A Pending Results/Labs:N/A Pending MD notification:N/A Latest Vital Signs: Temperature 98.4 , Pulse 73 , B/P 104 /49 , Respiratory Rate 12 , O2 SAT 98 , Mechanical Ventilator, O2 Flow Rate 15.0 . Vital Sign Comment: stable EKG Rhythm: V-Paced Rhythm change?: N MD Notified?: N - MD Response: Latest Delacruz Fall Score: 70 Fall Risk: High Risk Safety Measures: Call light Within Reach, Bed Alarm Zone 2, Side Rails Side Rails x3, Bed position Low and Locked. Fall Precautions: Yellow Socks Yellow Gown Door Sign Patient Fall Education Report given to Mckenna Melara RN.
[2019-09-21 20:00] VITALS: BP 99/54
[2019-09-21] MEDS: Atorvastatin 20mg tab GT SCH (21:48)
[2019-09-21] MEDS: Dyna-Hex 2% Top Sol 2oz TOPIC SCH (21:48)
[2019-09-22] VITALS (7 sets, daily range): BP systolic 100–135; BP diastolic 44–58
[2019-09-22] MEDS: NovoLOG Insulin Flexpen SUBQ SCH ×5 (01:10→23:30)
--- NOTE | 2019-09-22 06:33 | Hematology/Onc Progress Note ---
Assessment/Plan Assessment/Plan Assessment/recs # Leukocytosis - with multiple infections, VRE UTI, flow is negative --> wbc trend 33-->28-->25->23->22->23->24->17.3-->17-->14->16-->15.6-->14-->14- >13->19->18->17->22->22->19->17-->18 --> on abx, linezolid and zosyn--> zosyn-->gent-->off --> + blood cultures with coag neg staph likely contaminated --> as per id recs --> has ordered a flow cytometry (with pathology) --> does show increased nK cell activity --> JOURDAN 2 and bcr-abl labs ordered (these are send outs) --> plt 585-->613-->649-->669->663 # Anemia due to chronic disease/kidney disease as well, gi bleed + occult + noted --> was on iron in the past, now on hold --> has been started on Epogen sq --> as per renal care --> egd done and shows gastritis --> on ppi --> egd showed gastritis, colo recently done --> hgb 9-->8.7-->7.6-->9.2-->8.9-->9.2->9.3-->8.8->9.9-->9.2-->8.1-->8.7-->7.9- ->8.6-->8.9 # Respiratory failure --> per pulm, s/p trach --> COVID 19 test negative x 2 # Hyperlipidemia --> statin po # Dysphagia s/p gtube with nepro --> per gi # ESRD with r fem julito --> hd as per renal # Dvt ppx scds Appreciate consultation and dw Rn Subjective Genitourinary: Denies: no symptoms, burning, discharge, frequency, flank pain, hematuria, incontinence, pain, urgency, other Endocrine: Denies: no symptoms, excessive sweating, flushing, intolerance to cold, intolerance to heat, increased hunger, increased thirst, increased urine, unexplained weight gain, unexplained weight loss, other Hematologic/Lymphatic: Denies: no symptoms, anemia, easy bleeding, easy bruising, adenopathy, other Allergies: Coded Allergies: No Known Allergies (Unverified , 06/10/19) All Systems: reviewed and negative except above Subjective 08/15 meds noted, no bleeding, hgb 8.8, wbc 28, path flow pending 08/16 flow pending dw pathologist, results pending, wbc 25, hgb 9 08/17 labs reviewed, meds reviewed, meds noted, no night sweats 08/19 remains obtunded, on vent/trach, no bleeding wbc 21.7 08/20 labs have been reviewed, no bleeding, wbc still elev, path reviewed 08/21 labs are noted, no bleeding, on vent, wbc better 08/22 labs noted, no bleeding, meds reviewed, wbc 24 hgb 7.6 08/23 vent, off abx, c diff negative, h/h stable 08/24 labs reviewed, on abx, wbc 17, hgb 8.9, no hemolysis 08/26 reviewed flow and is negative for leukemia, matt rn 08/27 meds reviewed, no night sweats, matt rn, no major bleeding 08/28 meds reivewed, labs noted 08/29 wbc is stable, approx 15, hgb 8.8, no hemolysis 08/30 labs are noted, is for colo today, hgb 9.9 08/31 right fem julito in place, unchanged, hgb 9.2, gi aware 09/01 labs noted, hgb 8.8, plt >600, no bleeding 09/02 labs noted, no bleeding, with elev wbc still, no new changes 09/03 meds are noted, no bleeding, labs reviewed hgb 8.6 09/04 no major events, hd as per renal, abx, no bleeding hgb low 09/05 labs are noted, no bleeding, meds have been reviewed 09/06 no new labs no hemolysis, cbc is noted, no bleeding 09/07 meds reviewed, no bleeding, matt rn, permacath functioning well 09/09 meds reviewed, wbc still elevated, as per id recs, cbc noted 09/10 is obtunded, with gutbe in place, labs reviewed 09/11 obtunded, as per id, observe now off abx, labs noted, wbc 19 09/12 cbc is pending, remains on epogen, also off abx 09/13 labs reviewed, no bleeding, elev wbc, no night sweats 09/14 meds noted, no bleeding, wbc 19, hgb 9.5, no night sweats 09/21 obtunded, remains on vent, labs noted, no bleeding, hgb 8.9 Objective Objective Current Medications Medications (Trade) Dose Ordered Sig/Leonel Route PRN Reason Start Time Stop Time Status Last Admin Dose Admin Acetaminophen (Tylenol) 650 mg Q4H PRN GT Mild Pain (Pain Scale 1-3) 09/21/19 12:45 10/21/19 12:44 09/21/19 16:31 Atorvastatin Calcium (Lipitor) 40 mg BEDTIME GT 08/09/19 21:00 11/07/19 20:59 09/21/19 21:48 Chlorhexidine Gluconate (Felipa-Hex 2%) 1 applic DAILY@1999 TOPIC 09/12/19 20:00 12/11/19 19:59 09/21/19 21:48 Clonidine HCl (Catapres Tab) 0.1 mg Q4H PRN GT For High Blood Pressure 09/09/19 12:30 12/08/19 05:29 09/15/19 04:10 Dextrose (Dextrose 50%) 25 ml Q30M PRN IV Hypoglycemia 08/09/19 07:30 11/07/19 07:29 Dextrose (Dextrose 50%) 50 ml Q30M PRN IV Hypoglycemia 08/09/19 07:30 11/07/19 07:29 Epoetin Andreas (Epoetin Andreas(ESRD on dialysis)) 10,000 unit WED-WED-WED SUBQ 09/20/19 21:00 12/19/19 20:59 09/20/19 20:58 Famotidine (Pepcid) 20 mg DAILY GT 08/30/19 09:00 11/28/19 08:59 09/21/19 08:42 Insulin Aspart (NovoLOG) Q6HR SUBQ 08/10/19 00:00 11/07/19 11:29 09/22/19 06:14 Lactobacillus Acidophilus (Culturelle) 1 tab TWICE A DAY GT 09/14/19 18:00 12/13/19 17:59 09/21/19 17:23 Metoprolol Tartrate (Lopressor) 200 mg Q12HR GT 08/09/19 09:00 11/07/19 08:59 09/21/19 08:42 Minoxidil (Loniten) 5 mg DAILY GT 08/09/19 09:00 11/07/19 08:59 09/21/19 08:42 Zinc Oxide (Zinc Oxide) 1 applic BID TOPIC 08/10/19 18:00 11/08/19 17:59 09/21/19 17:04 Last 24 Hour Vital Signs Date Time Temp Pulse Resp B/P (MAP) Pulse Ox O2 Delivery O2 Flow Rate FiO2 09/22/19 04:51 82 14 24 09/22/19 04:00 24 09/22/19 04:00 99.0 80 12 108/50 (69) 98 09/22/19 04:00 80 09/22/19 03:59 Mechanical Ventilator 09/22/19 03:16 80 12 24 09/22/19 01:00 79 13 24 09/22/19 00:00 Mechanical Ventilator 09/22/19 00:00 24 09/22/19 00:00 98.9 73 14 104/54 (71) 98 09/21/19 23:28 78 09/21/19 23:14 76 12 24 09/21/19 21:00 73 99/53 09/21/19 20:53 73 12 24 09/21/19 20:00 Mechanical Ventilator 09/21/19 20:00 98.2 73 14 99/54 (69) 98 09/21/19 19:32 73 09/21/19 19:01 73 12 24 09/21/19 17:01 98.4 09/21/19 16:46 70 12 24 09/21/19 16:00 24 09/21/19 16:00 100.2 68 17 104/49 (67) 98 09/21/19 16:00 Mechanical Ventilator 09/21/19 15:36 68 09/21/19 14:34 68 12 24 09/21/19 12:30 65 12 24 09/21/19 12:00 24 09/21/19 12:00 63 09/21/19 12:00 Mechanical Ventilator 09/21/19 12:00 99.1 63 17 110/52 (71) 97 09/21/19 11:08 62 12 24 09/21/19 08:42 72 143/57 09/21/19 08:42 143/57 09/21/19 08:39 77 15 24 09/21/19 08:00 Mechanical Ventilator 09/21/19 08:00 24 09/21/19 08:00 97.7 72 16 143/57 (85) 97 09/21/19 07:31 72 09/21/19 06:50 74 15 24 09/21/19 05:00 66 12 24 09/21/19 04:00 24 09/21/19 04:00 98.1 71 12 154/72 (99) 99 09/21/19 04:00 Mechanical Ventilator 09/21/19 03:38 68 09/21/19 03:01 69 12 24 09/21/19 00:53 71 12 24 09/21/19 00:00 Mechanical Ventilator 09/21/19 00:00 97.7 69 12 119/52 (74) 100 09/21/19 00:00 24 09/20/19 23:27 69 09/20/19 22:55 70 12 24 09/20/19 20:53 67 123/54 09/20/19 20:51 74 12 24 09/20/19 20:00 Mechanical Ventilator 09/20/19 19:00 74 09/20/19 18:51 68 12 24 09/20/19 17:28 70 13 24 09/20/19 16:00 69 09/20/19 16:00 98.8 71 20 107/50 (69) 100 09/20/19 16:00 Mechanical Ventilator 09/20/19 16:00 24 09/20/19 15:16 68 12 24 09/20/19 12:41 67 13 24 09/20/19 12:05 98.1 66 22 97/38 (57) 99 09/20/19 12:03 24 09/20/19 12:01 Mechanical Ventilator 09/20/19 12:00 65 09/20/19 10:59 64 12 24 09/20/19 09:02 66 12 24 09/20/19 08:38 76 128/57 09/20/19 08:38 128/57 09/20/19 08:01 Mechanical Ventilator 09/20/19 08:00 98.1 76 22 128/57 (80) 100 09/20/19 08:00 74 09/20/19 08:00 24 09/20/19 07:12 75 15 24 Intake and Output 09/21/19 09/22/19 19:00 07:00 Intake Total 650 ml Output Total 6000 ml Balance -5350 ml Free Water 200 ml Tube Feeding 450 ml Hemodialysis UF 6000 ml Labs Test 09/19/19 11:16 09/19/19 17:06 09/20/19 11:49 09/20/19 17:08 POC Whole Blood Glucose 160 MG/DL (74-106) 131 MG/DL (74-106) 146 MG/DL (74-106) Test 09/21/19 03:20 09/21/19 12:16 09/21/19 16:39 09/22/19 01:03 White Blood Count 17.8 K/UL (4.8-10.8) Red Blood Count 3.36 M/UL (4.70-6.10) Hemoglobin 8.9 G/DL (14.2-18.0) Hematocrit 28.8 % (42.0-52.0) Mean Corpuscular Volume 86 FL (80-99) Mean Corpuscular Hemoglobin 26.5 PG (27.0-31.0) Mean Corpuscular Hemoglobin Concent 31.0 G/DL (32.0-36.0) Red Cell Distribution Width 19.5 % (11.6-14.8) Platelet Count 393 K/UL (150-450) Mean Platelet Volume 7.2 FL (6.5-10.1) Neutrophils (%) (Auto) 55.6 % (45.0-75.0) Lymphocytes (%) (Auto) 20.2 % (20.0-45.0) Monocytes (%) (Auto) 8.6 % (1.0-10.0) Eosinophils (%) (Auto) 14.9 % (0.0-3.0) Basophils (%) (Auto) 0.8 % (0.0-2.0) Sodium Level 133 MMOL/L (136-145) Potassium Level 3.2 MMOL/L (3.5-5.1) Chloride Level 96 MMOL/L (98-107) Carbon Dioxide Level 29 MMOL/L (21-32) Anion Gap 8 mmol/L (5-15) Blood Urea Nitrogen 63 mg/dL (7-18) Creatinine 3.6 MG/DL (0.55-1.30) Estimat Glomerular Filtration Rate 16.5 mL/min (>60) Glucose Level 129 MG/DL (74-106) Calcium Level 8.8 MG/DL (8.5-10.1) Phosphorus Level 3.4 MG/DL (2.5-4.9) POC Whole Blood Glucose 158 MG/DL (74-106) 176 MG/DL (74-106) 165 MG/DL (74-106) Test 09/22/19 06:11 POC Whole Blood Glucose 196 MG/DL (74-106) Height (Feet): 5 Height (Inches): 10.00 Weight (Pounds): 119 Objective Physical Exam General Appearance: nad, Chronically Ill Head: normocephalic Eyes: right eye PERRL - Will not open left eye ENT: moist mucus membranes Neck: other - submandibular mass R, fairly rigid with resistance to rotation to L, tracheotomy Respiratory: decreased breath sounds, crackles, other - pacemaker, vent+ Cardiovascular: regular rate, rhythm, edema - anasarca Gastrointestinal: non tender, distended, other - G tube Genitourinary: other Musculoskeletal: other - Contractures all extremities Neurologic: sensory intact, motor weakness, responsive Psychiatric: other Skin: Decubitus/Ulcer - Stage III right elbow, stage III left elbow, stage II sacrum, stage III scrotum, warm/dry Fitz Campos MD Sep 22, 2019 06:33
--- NOTE | 2019-09-22 07:30 | NUR ---
NURSE NOTES: Received patient's report from TAMICA Santizo. Patient is observed laying in bed, opening eyes spontaneously. No s/s of respiratory distress noted. Patient is trach to vent Portex 8, Settings: AC 12, TV 550, FiO2 25%, PEEP 5. G-tube in place and patent, running vital AF 1.5 @ 50mL/HR running. Patient has a rectal tube, greenish brown color noted. Rt FA #18g IV site, clean and intact. Call-light within reach. Bed is low and locked. Will continue to monitor with plan of care.
--- NOTE | 2019-09-22 07:43 | NUR ---
NURSE HAND-OFF REPORT: Latest Vital Signs: Temperature 99.0 , Pulse 80 , B/P 108 /50 , Respiratory Rate 13 , O2 SAT 98 , Mechanical Ventilator, O2 Flow Rate 15.0 . Vital Sign Comment: EKG Rhythm: V-Paced Rhythm change?: N MD Notified?: N - MD Response: Latest Delacruz Fall Score: 70 Fall Risk: High Risk Safety Measures: Call light Within Reach, Bed Alarm Zone 1, Side Rails Side Rails x3, Bed position Low and Locked. Fall Precautions: Yes Yellow Socks yes Report given to Sylvia Vasquez RN
[2019-09-22] MEDS: Metoprolol Tartrate 100mg tab GT SCH ×2 (08:12→20:05)
[2019-09-22] MEDS: Zinc Oxide Oint 2oz TOPIC SCH ×2 (08:13→17:03)
[2019-09-22] MEDS: Minoxidil 2.5mg tab GT SCH (08:13)
[2019-09-22] MEDS: Lactobacillus-GG tablet GT SCH ×2 (08:13→17:03)
--- NOTE | 2019-09-22 08:34 | General Progress Note ---
Assessment/Plan Assessment/Plan: IMPRESSION: 1. anemia. 2. GI bleed. 3. Leukocytosis. 4. Probable sepsis. + BCX 5. Acute on chronic renal failure. 6. Hyponatremia. 7. Severe protein-calorie malnutrition. 8. Significantly elevated C-reactive protein concerning for infectious etiology. 9. Tracheostomy, G-tube. 10. Ventilator dependence. 11. anasarca with bilateral pleural effusion 12. Hematuria 13. V pacing PLAN needs placement care noted on vent/ no wean surgical follow up monitor labs and adjust RX ID follow up monitor renal function: HD prognosis poor impression, plan, and exam edited and reviewed in detail care discussed with RN Subjective ROS Limited/Unobtainable: Yes Allergies: Coded Allergies: No Known Allergies (Unverified , 06/10/19) Subjective remains ill on vent on HD Objective Last 24 Hour Vital Signs Date Time Temp Pulse Resp B/P (MAP) Pulse Ox O2 Delivery O2 Flow Rate FiO2 09/22/19 08:13 124/58 09/22/19 08:12 84 124/58 09/22/19 06:50 80 13 24 09/22/19 04:51 82 14 24 09/22/19 04:00 24 09/22/19 04:00 99.0 80 12 108/50 (69) 98 09/22/19 04:00 80 09/22/19 03:59 Mechanical Ventilator 09/22/19 03:16 80 12 24 09/22/19 01:00 79 13 24 09/22/19 00:00 Mechanical Ventilator 09/22/19 00:00 24 09/22/19 00:00 98.9 73 14 104/54 (71) 98 09/21/19 23:28 78 09/21/19 23:14 76 12 24 09/21/19 21:00 73 99/53 09/21/19 20:53 73 12 24 09/21/19 20:00 Mechanical Ventilator 09/21/19 20:00 98.2 73 14 99/54 (69) 98 09/21/19 19:32 73 09/21/19 19:01 73 12 24 09/21/19 17:01 98.4 09/21/19 16:46 70 12 24 09/21/19 16:00 24 09/21/19 16:00 100.2 68 17 104/49 (67) 98 09/21/19 16:00 Mechanical Ventilator 09/21/19 15:36 68 09/21/19 14:34 68 12 24 09/21/19 12:30 65 12 24 09/21/19 12:00 24 09/21/19 12:00 63 09/21/19 12:00 Mechanical Ventilator 09/21/19 12:00 99.1 63 17 110/52 (71) 97 09/21/19 11:08 62 12 24 09/21/19 08:42 72 143/57 09/21/19 08:42 143/57 09/21/19 08:39 77 15 24 Intake and Output 09/21/19 09/22/19 19:00 07:00 Intake Total 650 ml 600 ml Output Total 6000 ml Balance -5350 ml 600 ml Free Water 200 ml Tube Feeding 450 ml 600 ml Hemodialysis UF 6000 ml Laboratory Tests 09/21/19 12:16: POC Whole Blood Glucose 158H 09/21/19 16:39: POC Whole Blood Glucose 176H 09/22/19 01:03: POC Whole Blood Glucose 165H 09/22/19 06:11: POC Whole Blood Glucose 196H Height (Feet): 5 Height (Inches): 10.00 Weight (Pounds): 120 Objective GENERAL: Ill-appearing male, chronically debilitated. HEENT: Tracheostomy in midline. Questionable fullness in the submandibular region. LUNGS: Coarse breath sounds. reduced breath sounds CARDIAC: S1, S2. Regular rate and rhythm. ABDOMEN: Soft. G-tube. EXTREMITIES: With noted edema. NEUROLOGICAL: Poorly responsive, weak diffusely. Kain Ramirez MD Sep 22, 2019 08:34
--- NOTE | 2019-09-22 09:18 | NUR ---
DISCHARGE PLANNING: NOTE VM LEFT FOR NCM:HARPER P:[phone] F/U ON [facility] FOR [facility] AND TRANSPORTATION TO AN FROM Addendum: 09/22/19 at 1337 by Jessy Gonzalez F/U VM LEFT FOR [facility] AT [facility] REGARDING [facility] AND TRANSPORTATION
--- NOTE | 2019-09-22 10:14 | NUR ---
RD ASSESSMENT & RECOMMENDATIONS SEE CARE ACTIVITY FOR COMPLETE ASSESSMENT DAILY ESTIMATED NEEDS: Needs based on Renal, critical care, wound/ 61kg 22-30 kcals/kg 5804-9029 total kcals 1.25-2 g protein/kg 76-122 g total protein Fluid per MD, now on HD NUTRITION DIAGNOSIS: * Swallowing difficulty R/T respiratory failure, dysphagia as evidenced by trach/vent dep, PEG dep * Increased kcal/prot needs R/T wound healing as evidenced by admitted w/ multiple pressure injuries including full thickness wounds at junction of Shaft of penis, dorsal scrotum, R elbow, and DTPI @ L buttocks. CURRENT TF:Vital AF 1.2 @ 50ml/hr x 24 hrs + Garo BID ENTERAL NUTRITION RECOMMENDATIONS: Vital AF 1.2 @ 50ml/hr x 24 hrs to provide 1200ml, 1440kcal,9 0g prot, 973ml free water * Maintain elemental TF of Vital AF 1.2 w/ continued diarrhea -> monitor lytes and renal fxn closely, monitor need for renal TF -> TF @ goal will provide 1642mg K and 2025mg Phos * HOB over 30 degrees/ water flush per MD * Continue Garo BID via PEG ADDITIONAL RECOMMENDATIONS: * Per SNF: HT=63" ZY=836 lbs (vs EMR wt of 166lbs) -> obtain re-calibrated bedscale wt, rec daily wt monitoring * Wound healing: con't Nephrovite + Garo BID/ Vit C dosing per Nephro * Monitor renal fxn and lytes closely w/ non-renal TF -> K low, phos wnl; rec updated mag level. * Daily wts w/ drop to 118-20 lbs, rec to recalibrate for accurate CBW * Consider adding anti-diarrheal med for continued diarrhea, +rectal tube
--- NOTE | 2019-09-22 10:25 | NUR ---
HAND-OFF: Report given to TAMICA Espino.
--- NOTE | 2019-09-22 10:26 | NUR ---
NURSE NOTES: Received report from TAMICA Ward. Patient is resting in bed, in stable condition. No s/sx of SOB, breathing is even and unlabored, pt on vent with vent settings as ordered. Patient is nonverbal, observed no presence of pain or discomfort at this time. On Vital AF 1.2 tube feeding via G-tube, patent. Bed is in lowest position, brakes engaged. Call light is kept within easy reach. Will continue to monitor patient.
--- NOTE | 2019-09-22 10:35 | Infectious Diseases Prog Note ---
Assessment/Plan Assessment/Plan antibiotics : none A 1. klebsiella catheter infection s/p rx 2. respiratory failure 3. leucocytosis improving 4. klebsiella, pseudomonas, providencia pneumonia s/p rx COVID 19 test negative x 2 5. renal failure on HD P 1. observe off antibiotics 2. will follow up cultures Subjective ROS Limited/Unobtainable: Yes Allergies: Coded Allergies: No Known Allergies (Unverified , 06/10/19) Objective Last 24 Hour Vital Signs Date Time Temp Pulse Resp B/P (MAP) Pulse Ox O2 Delivery O2 Flow Rate FiO2 09/22/19 09:15 67 15 24 09/22/19 08:13 124/58 09/22/19 08:12 84 124/58 09/22/19 08:00 Mechanical Ventilator 09/22/19 08:00 97.0 85 20 124/58 (80) 98 09/22/19 08:00 80 09/22/19 08:00 24 09/22/19 06:50 80 13 24 09/22/19 04:51 82 14 24 09/22/19 04:00 24 09/22/19 04:00 99.0 80 12 108/50 (69) 98 09/22/19 04:00 80 09/22/19 03:59 Mechanical Ventilator 09/22/19 03:16 80 12 24 09/22/19 01:00 79 13 24 09/22/19 00:00 Mechanical Ventilator 09/22/19 00:00 24 09/22/19 00:00 98.9 73 14 104/54 (71) 98 09/21/19 23:28 78 09/21/19 23:14 76 12 24 09/21/19 21:00 73 99/53 09/21/19 20:53 73 12 24 09/21/19 20:00 Mechanical Ventilator 09/21/19 20:00 98.2 73 14 99/54 (69) 98 09/21/19 19:32 73 09/21/19 19:01 73 12 24 09/21/19 17:01 98.4 09/21/19 16:46 70 12 24 09/21/19 16:00 24 09/21/19 16:00 100.2 68 17 104/49 (67) 98 09/21/19 16:00 Mechanical Ventilator 09/21/19 15:36 68 09/21/19 14:34 68 12 24 8/13/20 12:30 65 12 24 09/21/19 12:00 24 09/21/19 12:00 63 09/21/19 12:00 Mechanical Ventilator 09/21/19 12:00 99.1 63 17 110/52 (71) 97 09/21/19 11:08 62 12 24 Height (Feet): 5 Height (Inches): 10.00 Weight (Pounds): 120 HEENT: status post trach Respiratory/Chest: lungs clear Cardiovascular: normal rate, regular rhythm, no gallop/murmur Abdomen: soft, non tender, other - GT Extremities: no edema, other - right subclavian catheter Laboratory Tests Test 09/21/19 12:16 09/21/19 16:39 09/22/19 01:03 09/22/19 06:11 POC Whole Blood Glucose 158 MG/DL (74-106) H 176 MG/DL (74-106) H 165 MG/DL (74-106) H 196 MG/DL (74-106) H Current Medications Medications (Trade) Dose Ordered Sig/Leonel Route PRN Reason Start Time Stop Time Status Last Admin Dose Admin Acetaminophen (Tylenol) 650 mg Q4H PRN GT Mild Pain (Pain Scale 1-3) 09/21/19 12:45 10/21/19 12:44 09/21/19 16:31 Atorvastatin Calcium (Lipitor) 40 mg BEDTIME GT 08/09/19 21:00 11/07/19 20:59 09/21/19 21:48 Chlorhexidine Gluconate (Felipa-Hex 2%) 1 applic DAILY@1999 TOPIC 09/12/19 20:00 12/11/19 19:59 09/21/19 21:48 Clonidine HCl (Catapres Tab) 0.1 mg Q4H PRN GT For High Blood Pressure 09/09/19 12:30 12/08/19 05:29 09/15/19 04:10 Dextrose (Dextrose 50%) 25 ml Q30M PRN IV Hypoglycemia 08/09/19 07:30 11/07/19 07:29 Dextrose (Dextrose 50%) 50 ml Q30M PRN IV Hypoglycemia 08/09/19 07:30 11/07/19 07:29 Epoetin Andreas (Epoetin Andreas(ESRD on dialysis)) 10,000 unit WED- SUBQ 09/20/19 21:00 12/19/19 20:59 09/20/19 20:58 Famotidine (Pepcid) 20 mg DAILY GT 08/30/19 09:00 11/28/19 08:59 09/22/19 08:13 Insulin Aspart (NovoLOG) Q6HR SUBQ 08/10/19 00:00 11/07/19 11:29 09/22/19 06:14 Lactobacillus Acidophilus (Culturelle) 1 tab TWICE A DAY GT 09/14/19 18:00 12/13/19 17:59 09/22/19 08:13 Metoprolol Tartrate (Lopressor) 200 mg Q12HR GT 08/09/19 09:00 11/07/19 08:59 09/22/19 08:12 Minoxidil (Loniten) 5 mg DAILY GT 08/09/19 09:00 11/07/19 08:59 09/22/19 08:13 Zinc Oxide (Zinc Oxide) 1 applic BID TOPIC 08/10/19 18:00 11/08/19 17:59 09/22/19 08:13 Farnaz Lyle MD Sep 22, 2019 10:35
--- NOTE | 2019-09-22 13:36 | NUR ---
CASE MANAGEMENT: REVIEW 09/22/2019 SI;SEPSIS. VS: T 97.7 HR 67 RR 20 B/P 126/49 SATS 98% ON MECH VENT FIO2 24 LABS: GLU 197 IS;LIPITOR PO QHS LONITEN GT QD LOPRESSOR GT Q12H INSULIN ASPART SUBQ Q6H SDU
--- NOTE | 2019-09-22 13:37 | NUR ---
INSURANCE REVIEW AND PROGRESS NOTES FAXED TO ELIN / JEFF [facility] REF# [id number] RUSSELLM:HARPER P:[phone] F:[phone]
--- NOTE | 2019-09-22 13:59 | Surgery Progress Note ---
Surgery Progress Note Subjective Procedure Performed Right femoral temporary hemodialysis catheter removal Additional Comments no acute events stable pending placement Objective Last 24 Hour Vital Signs Date Time Temp Pulse Resp B/P (MAP) Pulse Ox O2 Delivery O2 Flow Rate FiO2 09/22/19 12:00 24 09/22/19 12:00 97.7 67 20 126/49 (74) 98 09/22/19 12:00 Mechanical Ventilator 09/22/19 12:00 68 09/22/19 11:16 67 12 24 09/22/19 09:15 67 15 24 09/22/19 08:13 124/58 09/22/19 08:12 84 124/58 09/22/19 08:00 Mechanical Ventilator 09/22/19 08:00 97.0 85 20 124/58 (80) 98 09/22/19 08:00 80 09/22/19 08:00 24 09/22/19 06:50 80 13 24 09/22/19 04:51 82 14 24 09/22/19 04:00 24 09/22/19 04:00 99.0 80 12 108/50 (69) 98 09/22/19 04:00 80 09/22/19 03:59 Mechanical Ventilator 09/22/19 03:16 80 12 24 09/22/19 01:00 79 13 24 09/22/19 00:00 Mechanical Ventilator 09/22/19 00:00 24 09/22/19 00:00 98.9 73 14 104/54 (71) 98 09/21/19 23:28 78 09/21/19 23:14 76 12 24 09/21/19 21:00 73 99/53 09/21/19 20:53 73 12 24 09/21/19 20:00 Mechanical Ventilator 09/21/19 20:00 98.2 73 14 99/54 (69) 98 09/21/19 19:32 73 09/21/19 19:01 73 12 24 09/21/19 17:01 98.4 09/21/19 16:46 70 12 24 09/21/19 16:00 24 09/21/19 16:00 100.2 68 17 104/49 (67) 98 09/21/19 16:00 Mechanical Ventilator 09/21/19 15:36 68 09/21/19 14:34 68 12 24 I&O Intake and Output 09/21/19 09/22/19 19:00 07:00 Intake Total 650 ml 600 ml Output Total 6000 ml Balance -5350 ml 600 ml Free Water 200 ml Tube Feeding 450 ml 600 ml Hemodialysis UF 6000 ml Dressing: other Wound: other Cardiovascular: RSR Respiratory: decreased breath sounds Abdomen: soft, non-tender, present bowel sounds Extremities: no edema, no tenderness, no cyanosis Laboratory Tests Test 09/21/19 16:39 09/22/19 01:03 09/22/19 06:11 09/22/19 11:53 POC Whole Blood Glucose 176 MG/DL (74-106) H 165 MG/DL (74-106) H 196 MG/DL (74-106) H 197 MG/DL (74-106) H Plan Problems: (1) Anemia (2) Hyponatremia (3) Leukocytosis Assessment & Plan: Tracheostomy, left chest pacemaker are again demonstrated. There is bilateral interstitial and airspace disease and bilateral pleural fluid again demonstrated. This appears more severe than on the prior study. Bilateral interstitial and airspace infiltrates versus edema. Bilateral pleural effusions Leukocytosis, anemia, tachycardia, abnormal labs. Wound evaluated and likely etiology of patient's sepsis. Leukocytosis etiology work-up antibiotics per infectious disease Appreciate nephrology input transfuse with dialysis We will follow with recommendations thank you allowing participation's care plan HD access temp HD discussed with medical teams line okay HD as per renal persistent leukocytosis flow cyto noted improving trending down right fem line removed (4) Ventilator dependent (5) Right lower lobe pneumonia (6) Hypokalemia (7) Hyperkalemia (8) Anasarca (9) Decubitus skin ulcer Assessment & Plan: pt presented on admission with generalized edemae.Skin assessed under tracheostomy and no areas of concerns noted. GT Insertion is marginally erythematous with small amt slough at stoma. Unstageable Pressure Injury R elbow. Base of wound is 100% yellow slough, Borders are erythematous. Wound oozing small amt haemopurulent exudate.Darker skin tone without elevation in skin temp or erythema periwound. Pt's penis and scrotum are grossly edematous and enlarged and weeping serous exudate from numerous sites both from penis and scrotum. Two small open wounds noted at base of at base of shaft of penis ,and contreras aspect of scrotum. Both wounds oozing large amt sanguineous and serosanguineous exudate. Multiple open wounds with Biofilm at base of each wounds noted to contreras/lateral,inferior and posterior aspects of scrotum. These wounds noted to be oozing moderate amts of serosanguineous exudate. Hypertrophic scar with scattered areas of hyperpigmentation noted to Sacrum. DTPI noted to L Buttocks (L)7cm x (W)9cm. Base of wound is purple and indurated.Darker skin tone without erythema, induration or fluctuance R and L ischial tuberosities. Both heels are boggy with non-blanchable erythema. Tx.Plan: Cleanse wound R elbow with Saline. Apply TheraHoney, Apply Moisture Barrier Paste periwound. Cover with Optifoam drsg.Change Daily and prn. Wash GT site with soap and water.Pat dry. Apply Zinc Oxide Paste to GT site Daily. Leave Open to Air. Apply Zinc Oxide Paste to entire Scrotum, Place ABD pads to R and L lateral, and posterior aspects of scrotum TWICE daily. Apply Cavilon Skin Barrier to malleoli and both Heels. Cover each site with Optifoam drsgs. Change every 7 days and prn. Reposition at least every 2hours or as tolerated. Off-load heels with Pillows. APM/BECCA Mattress overlay. (10) Malnutrition Assessment & Plan: DAILY ESTIMATED NEEDS: Needs based on Renal, critical care, wound/ 61kg 22-30 kcals/kg 2417-3745 total kcals 1.25-2 g protein/kg 76-122 g total protein Fluid per MD, now on HD mL/kg . total fluid mLs NUTRITION DIAGNOSIS: * Swallowing difficulty R/T respiratory failure, dysphagia as evidenced by trach/vent dep, PEG dep * Increased kcal/prot needs R/T wound healing as evidenced by admitted w/ multiple pressure injuries including full thickness wounds at junction of Shaft of penis, dorsal scrotum, R elbow, and DTPI @ L buttocks. CURRENT TF:Vital AF 1.2 @ 50ml/hr x 24 hrs + Garo BID ENTERAL NUTRITION RECOMMENDATIONS: Vital AF 1.2 @ 50ml/hr x 24 hrs to provide 1200ml, 1440kcal,9 0g prot, 973ml free water * Maintain elemental TF of Vital AF 1.2 w/ continued diarrhea -> monitor lytes and renal fxn closely, monitor need for renal TF -> TF @ goal will provide 1642mg K and 2025mg Phos * HOB over 30 degrees/ water flush per MD * Continue Garo BID via PEG (11) Uremia (12) CKD (chronic kidney disease) stage 5, GFR less than 15 ml/min (13) Colon distention Assessment & Plan: discussed with GI likely functional as having lots of loose bm rectal tube kub f/u s/p colonoscopy - findings reviewed with GI Marked distention of the sigmoid colon. 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 No evidence of bowel wall thickening or pneumatosis 12 mm focus of contrast enhancement in the right pectineus muscle. While nonspecific in appearance, appearance raises concern for a possible pseudoaneurysm. Ill- defined thickening of the pectus medius muscle could indicate some intramuscular hemorrhage. The above findings were phoned to Dr. Urias at the time of interpretation Large bilateral pleural effusions Hazy pulmonary parenchymal opacities as well as dense consolidative opacities most likely represent pulmonary edema, but could represent pneumonia Evidence of anasarca elsewhere, with generalized edema of the subcutaneous fat Bladder wall thickening, raises concern for cystitis. Avalos catheter in place Colonic diverticulosis. No evidence of diverticulitis. Tracheostomy Pacemaker Gastrostomy Jonathan Urias Sep 22, 2019 13:59
--- NOTE | 2019-09-22 14:34 | Nephrology Progress Note ---
Assessment/Plan Plan Smoldering Sepsis - IV Abx Established ESRD - HD now TTS. Subjective Subjective Obtunded. Objective Objective Last 24 Hour Vital Signs Date Time Temp Pulse Resp B/P (MAP) Pulse Ox O2 Delivery O2 Flow Rate FiO2 09/22/19 13:10 71 13 24 09/22/19 12:00 24 09/22/19 12:00 97.7 67 20 126/49 (74) 98 09/22/19 12:00 Mechanical Ventilator 09/22/19 12:00 68 09/22/19 11:16 67 12 24 09/22/19 09:15 67 15 24 09/22/19 08:13 124/58 09/22/19 08:12 84 124/58 09/22/19 08:00 Mechanical Ventilator 09/22/19 08:00 97.0 85 20 124/58 (80) 98 09/22/19 08:00 80 09/22/19 08:00 24 09/22/19 06:50 80 13 24 09/22/19 04:51 82 14 24 09/22/19 04:00 24 09/22/19 04:00 99.0 80 12 108/50 (69) 98 09/22/19 04:00 80 09/22/19 03:59 Mechanical Ventilator 09/22/19 03:16 80 12 24 09/22/19 01:00 79 13 24 09/22/19 00:00 Mechanical Ventilator 09/22/19 00:00 24 09/22/19 00:00 98.9 73 14 104/54 (71) 98 09/21/19 23:28 78 09/21/19 23:14 76 12 24 09/21/19 21:00 73 99/53 09/21/19 20:53 73 12 24 09/21/19 20:00 Mechanical Ventilator 09/21/19 20:00 98.2 73 14 99/54 (69) 98 09/21/19 19:32 73 09/21/19 19:01 73 12 24 09/21/19 17:01 98.4 09/21/19 16:46 70 12 24 09/21/19 16:00 24 09/21/19 16:00 100.2 68 17 104/49 (67) 98 09/21/19 16:00 Mechanical Ventilator 09/21/19 15:36 68 09/21/19 14:34 68 12 24 Intake and Output 09/21/19 09/22/19 19:00 07:00 Intake Total 650 ml 600 ml Output Total 6000 ml Balance -5350 ml 600 ml Free Water 200 ml Tube Feeding 450 ml 600 ml Hemodialysis UF 6000 ml Laboratory Tests 09/21/19 16:39: POC Whole Blood Glucose 176H 09/22/19 01:03: POC Whole Blood Glucose 165H 09/22/19 06:11: POC Whole Blood Glucose 196H 09/22/19 11:53: POC Whole Blood Glucose 197H Height (Feet): 5 Height (Inches): 10.00 Weight (Pounds): 120 Objective CV RR Trach clean Lungs CTA New Perma Cath RIJ. Old Femoral [place]o still in Rt. Groin! Abd SNT. BS + E No CCE Erica Pichardo MD Sep 22, 2019 14:34
--- NOTE | 2019-09-22 14:40 | NUR ---
NURSE NOTES: Dr. Pichardo seen and examined patient at bedside, informed MD that patient's sodium level today is 133 and potassium level is 3.2. Dr. Pichardo acknowledged and gave no new orders at this time. Will continue to monitor patient.
--- NOTE | 2019-09-22 14:52 | NUR ---
NURSE NOTES: Called [facility] Nephrology to schedule hemodialysis for patient tomorrow, 09/23/2019, as per order of Dr. Pichardo. Spoke with Cody, per Cody acknowledged and informed this nurse that Young, dialysis nurse will be notified. Order logged in Dialysis log book. Will continue to monitor patient.
--- NOTE | 2019-09-22 15:46 | NUR ---
DISCHARGE PLANNING: NOTE UNICORN MED TRANS WAS ARRANGED BY CHRISTIE TO BEGIN ON WEDNESDAY (IF MARISABEL IS RECEIVED) T: [phone]
--- NOTE | 2019-09-22 19:10 | NUR ---
NURSE NOTES: Received report from Srinivas Storey RN. Patient asleep, afebrile and no respiratory distress. V paced on 5 lead environmental monitoring specialist. On [facility] vent Port[place] 8, ac 12, TV 550, FiO2 24%, peep 5. With Right FA 22g IV line intact, patent and asymptomatic. With Right subclavian permacath intact, clean and asymptomatic. On Vital AF 50cc/hr via GT intact and infusing well. Needs were attended. HOB elevated. Bed rails are up and wheels are locked. Call light within reach. Continue plan of care.
--- NOTE | 2019-09-22 19:22 | NUR ---
NURSE HAND-OFF REPORT: Important Events on Shift: None. Patient Status: Stable Diet: G-tube Vital AF 1.2 50 ml/hr Pending Orders: None. Pending Results/Labs: None. Pending MD notification:None. Latest Vital Signs: Temperature 98.2 , Pulse 75 , B/P 104 /47 , Respiratory Rate 14 , O2 SAT 98 , Mechanical Ventilator, O2 Flow Rate 15.0 . Vital Sign Comment: None. EKG Rhythm: V-Paced Rhythm change?: N MD Notified?: N - MD Response: Latest Delacruz Fall Score: 70 Fall Risk: High Risk Safety Measures: Call light Within Reach, Bed Alarm Zone 1, Side Rails Side Rails x3, Bed position Low and Locked. Fall Precautions: Yellow Socks Report given to TAMICA Wang.
[2019-09-22] MEDS: Dyna-Hex 2% Top Sol 2oz TOPIC SCH (20:04)
[2019-09-22] MEDS: Atorvastatin 20mg tab GT SCH (20:05)
[2019-09-22] MEDS: Epoetin Alfa-EPBX(ESRD on dialysis)10,000 unit/ml vial SUBQ SCH (20:22)
--- NOTE | 2019-09-22 22:22 | General Progress Note ---
Assessment/Plan Assessment/Plan: Assessment - colonoscopy negative to hepatic flexure - diarrhea - presumed TF related - abnormal LFT - Anemia - leukocytosis - stool OB (+) - EGD --> gastritis - Renal failure - Anasarca - resp failure, trach - dysphagia, GT - encephalopathy, contracted - poor px Recommendations - Continue TF - Elevate HOB - f/u labs - PPI - abx - supportive care Subjective Allergies: Coded Allergies: No Known Allergies (Unverified , 06/10/19) Subjective Above noted no events tolerating TF Objective Last 24 Hour Vital Signs Date Time Temp Pulse Resp B/P (MAP) Pulse Ox O2 Delivery O2 Flow Rate FiO2 09/22/19 20:05 73 135/58 09/22/19 20:00 Mechanical Ventilator 09/22/19 20:00 73 09/22/19 20:00 24 09/22/19 20:00 98.2 73 20 135/58 (83) 98 09/22/19 19:22 74 13 24 09/22/19 18:00 75 104/47 (66) 09/22/19 17:00 71 14 24 09/22/19 16:00 71 09/22/19 15:55 Mechanical Ventilator 09/22/19 15:55 24 09/22/19 15:53 98.2 72 20 100/44 (62) 98 09/22/19 15:00 70 12 24 09/22/19 13:10 71 13 24 09/22/19 12:00 24 09/22/19 12:00 97.7 67 20 126/49 (74) 98 09/22/19 12:00 Mechanical Ventilator 09/22/19 12:00 68 09/22/19 11:16 67 12 24 09/22/19 09:15 67 15 24 09/22/19 08:13 124/58 09/22/19 08:12 84 124/58 09/22/19 08:00 Mechanical Ventilator 09/22/19 08:00 97.0 85 20 124/58 (80) 98 09/22/19 08:00 80 09/22/19 08:00 24 09/22/19 06:50 80 13 24 09/22/19 04:51 82 14 24 09/22/19 04:00 24 09/22/19 04:00 99.0 80 12 108/50 (69) 98 09/22/19 04:00 80 8/14/20 03:59 Mechanical Ventilator 09/22/19 03:16 80 12 24 09/22/19 01:00 79 13 24 09/22/19 00:00 Mechanical Ventilator 09/22/19 00:00 24 09/22/19 00:00 98.9 73 14 104/54 (71) 98 09/21/19 23:28 78 09/21/19 23:14 76 12 24 Intake and Output 09/21/19 09/22/19 19:00 07:00 Intake Total 650 ml 650 ml Output Total 6000 ml Balance -5350 ml 650 ml Free Water 200 ml Tube Feeding 450 ml 650 ml Hemodialysis UF 6000 ml Laboratory Tests 09/22/19 01:03: POC Whole Blood Glucose 165H 09/22/19 06:11: POC Whole Blood Glucose 196H 09/22/19 11:53: POC Whole Blood Glucose 197H 09/22/19 16:33: POC Whole Blood Glucose 126H Height (Feet): 5 Height (Inches): 10.00 Weight (Pounds): 120 Objective Debilitated AA man NCAT (+) trach coarse BS RR abd distended, anasarca, (+) GT ext (+) edema contracted Ronny Mustafa MD Sep 22, 2019 22:22
[2019-09-23] VITALS: BP 111/59
--- NOTE | 2019-09-23 01:00 | NUR ---
NURSE NOTES: Patient was given partial bed bath, changed gown and linen. Pt tolerated well. No episode of Hypotension noted. Pt saturating 98-100%. no respiratory distress noted. continue to monitor the patient
[2019-09-23 04:00] VITALS: BP 106/55
[2019-09-23 04:32] LABS: HEMATOCRIT 30.5 % (42.0-52.0); HEMOGLOBIN 9.2 G/DL (14.2-18.0); MEAN CORPUSCULAR VOLUME 85 FL (80-99); PLATELET COUNT 402 K/UL (150-450); RED CELL DISTRIBUTION WIDTH 18.2 % (11.6-14.8); WHITE BLOOD COUNT 20.8 K/UL (4.8-10.8)
[2019-09-23 04:38] LABS: ANION GAP 14 mmol/L (5-15); BLOOD UREA NITROGEN 81 mg/dL (7-18); CALCIUM 9.1 MG/DL (8.5-10.1); CARBON DIOXIDE 27 MMOL/L (21-32); CHLORIDE 96 MMOL/L (98-107); CREATININE 4.5 MG/DL (0.55-1.30); PHOSPHORUS 4.1 MG/DL (2.5-4.9); POTASSIUM 2.9 MMOL/L (3.5-5.1); SODIUM 137 MMOL/L (136-145)
[2019-09-23] MEDS: NovoLOG Insulin Flexpen SUBQ SCH ×3 (05:37→18:00)
[2019-09-23] MEDS ORDERED: Heparin 1000 units/ml 1ml Vial INJ PRN (07:00)
[2019-09-23] MEDS ORDERED: Heparin Sod 1000 units/ml 10ml IV PRN (07:00)
--- NOTE | 2019-09-23 07:20 | NUR ---
NURSE HAND-OFF REPORT: Important Events on Shift: Patient Status: Stable Diet: GTF Vital AF at 50cc/hr Pending Orders: n Pending Results/Labs:n Pending MD notification:n Latest Vital Signs: Temperature 99.9 , Pulse 73 , B/P 106 /55 , Respiratory Rate 13 , O2 SAT 98 , Mechanical Ventilator, O2 Flow Rate 15.0 . Vital Sign Comment: Closely monitor B/p EKG Rhythm: V-Paced Rhythm change?: N MD Notified?: N - MD Response: Latest Delacruz Fall Score: 70 Fall Risk: High Risk Safety Measures: Call light Within Reach, Bed Alarm Zone 1, Side Rails Side Rails x3, Bed position Low and Locked. Fall Precautions: Yellow Socks Report given to TAMICA Ennis.
--- NOTE | 2019-09-23 07:25 | NUR ---
NURSE NOTES: Report received from TAMICA Mart.Pt resting in bed asleep noted no resp distress with trach tube to vent ,ordered vent settings tolerated,nosigns of pain or discomfort,V-Paced on the monitor,Rectal tube intact ,pt anuric on HD ,skin warm and dry with IV to RFA ,site intact ,HD access to RT [place] cath intact,ST up x2 HOB elevated,bed lock in lowest position will continue with plans of care.
[2019-09-23 08:00] VITALS: BP 109/49
--- NOTE | 2019-09-23 08:19 | Hematology/Onc Progress Note ---
Assessment/Plan Assessment/Plan Assessment/recs # Leukocytosis - with multiple infections, VRE UTI, flow is negative --> wbc trend 33-->28-->25->23->22->23->24->17.3-->17-->14->16-->15.6-->14-->14- >13->19->18->17->22->22->19->17-->18 --> on abx, linezolid and zosyn--> zosyn-->gent-->off --> + blood cultures with coag neg staph likely contaminated --> as per id recs --> has ordered a flow cytometry (with pathology) --> does show increased nK cell activity --> JOURDAN 2 and bcr-abl labs ordered (these are send outs) --> plt 585-->613-->649-->669->663 # Anemia due to chronic disease/kidney disease as well, gi bleed + occult + noted --> was on iron in the past, now on hold --> has been started on Epogen sq --> as per renal care --> egd done and shows gastritis --> on ppi --> egd showed gastritis, colo recently done --> hgb 9-->8.7-->7.6-->9.2-->8.9-->9.2->9.3-->8.8->9.9-->9.2-->8.1-->8.7-->7.9- ->8.6-->8.9 # Respiratory failure --> per pulm, s/p trach --> COVID 19 test negative x 2 # Hyperlipidemia --> statin po # Dysphagia s/p gtube with nepro --> per gi # ESRD with r fem julito --> hd as per renal # Dvt ppx scds Appreciate consultation and dw Rn Subjective Genitourinary: Denies: no symptoms, burning, discharge, frequency, flank pain, hematuria, incontinence, pain, urgency, other Neurologic/Psychiatric: Denies: no symptoms, anxiety, depressed, emotional problems, headache, numbness, paresthesia, pre-existing deficit, seizure, tingling, tremors, weakness, other Endocrine: Denies: no symptoms, excessive sweating, flushing, intolerance to cold, intolerance to heat, increased hunger, increased thirst, increased urine, unexplained weight gain, unexplained weight loss, other Allergies: Coded Allergies: No Known Allergies (Unverified , 06/10/19) All Systems: reviewed and negative except above Subjective 08/15 meds noted, no bleeding, hgb 8.8, wbc 28, path flow pending 08/16 flow pending dw pathologist, results pending, wbc 25, hgb 9 08/17 labs reviewed, meds reviewed, meds noted, no night sweats 08/19 remains obtunded, on vent/trach, no bleeding wbc 21.7 08/20 labs have been reviewed, no bleeding, wbc still elev, path reviewed 08/21 labs are noted, no bleeding, on vent, wbc better 08/22 labs noted, no bleeding, meds reviewed, wbc 24 hgb 7.6 08/23 vent, off abx, c diff negative, h/h stable 08/24 labs reviewed, on abx, wbc 17, hgb 8.9, no hemolysis 08/26 reviewed flow and is negative for leukemia, matt rn 08/27 meds reviewed, no night sweats, matt rn, no major bleeding 08/28 meds reivewed, labs noted 08/29 wbc is stable, approx 15, hgb 8.8, no hemolysis 08/30 labs are noted, is for colo today, hgb 9.9 08/31 right fem julito in place, unchanged, hgb 9.2, gi aware 09/01 labs noted, hgb 8.8, plt >600, no bleeding 09/02 labs noted, no bleeding, with elev wbc still, no new changes 09/03 meds are noted, no bleeding, labs reviewed hgb 8.6 09/04 no major events, hd as per renal, abx, no bleeding hgb low 09/05 labs are noted, no bleeding, meds have been reviewed 09/06 no new labs no hemolysis, cbc is noted, no bleeding 09/07 meds reviewed, no bleeding, matt rn, permacath functioning well 09/09 meds reviewed, wbc still elevated, as per id recs, cbc noted 09/10 is obtunded, with gutbe in place, labs reviewed 09/11 obtunded, as per id, observe now off abx, labs noted, wbc 19 09/12 cbc is pending, remains on epogen, also off abx 09/13 labs reviewed, no bleeding, elev wbc, no night sweats 09/14 meds noted, no bleeding, wbc 19, hgb 9.5, no night sweats 09/21 obtunded, remains on vent, labs noted, no bleeding, hgb 8.9 09/22 obtunded, labs noted, no bleeding, on vent, unchanged Objective Objective Current Medications Medications (Trade) Dose Ordered Sig/Leonel Route PRN Reason Start Time Stop Time Status Last Admin Dose Admin Acetaminophen (Tylenol) 650 mg Q4H PRN GT Mild Pain (Pain Scale 1-3) 09/21/19 12:45 10/21/19 12:44 09/21/19 16:31 Atorvastatin Calcium (Lipitor) 40 mg BEDTIME GT 08/09/19 21:00 11/07/19 20:59 09/22/19 20:05 Chlorhexidine Gluconate (Felipa-Hex 2%) 1 applic DAILY@1999 TOPIC 09/12/19 20:00 12/11/19 19:59 09/22/19 20:04 Clonidine HCl (Catapres Tab) 0.1 mg Q4H PRN GT For High Blood Pressure 09/09/19 12:30 12/08/19 05:29 09/15/19 04:10 Dextrose (Dextrose 50%) 25 ml Q30M PRN IV Hypoglycemia 08/09/19 07:30 11/07/19 07:29 Dextrose (Dextrose 50%) 50 ml Q30M PRN IV Hypoglycemia 08/09/19 07:30 11/07/19 07:29 Epoetin Andreas (Epoetin Andreas(ESRD on dialysis)) 10,000 unit WED-WED-WED SUBQ 09/20/19 21:00 12/19/19 20:59 09/22/19 20:22 Famotidine (Pepcid) 20 mg DAILY GT 08/30/19 09:00 11/28/19 08:59 09/22/19 08:13 Heparin Sodium (Porcine) (Heparin Sod 1000 units/ml 10ml) 2,000 unit ONCE PRN IV HD USE 09/23/19 07:00 09/23/19 23:59 Heparin Sodium (Porcine) (Heparin) 1,000 unit POSTHD PRN INJ HD USE 09/23/19 07:00 09/23/19 23:59 Insulin Aspart (NovoLOG) Q6HR SUBQ 08/10/19 00:00 11/07/19 11:29 09/23/19 05:37 Lactobacillus Acidophilus (Culturelle) 1 tab TWICE A DAY GT 09/14/19 18:00 12/13/19 17:59 09/22/19 17:03 Metoprolol Tartrate (Lopressor) 200 mg Q12HR GT 08/09/19 09:00 11/07/19 08:59 09/22/19 20:05 Minoxidil (Loniten) 5 mg DAILY GT 08/09/19 09:00 11/07/19 08:59 09/22/19 08:13 Sodium Chloride 1,000 ml @ 500 mls/hr Q2H PRN IVLG sbp<90 during hd 09/23/19 07:00 09/23/19 23:59 Zinc Oxide (Zinc Oxide) 1 applic BID TOPIC 08/10/19 18:00 11/08/19 17:59 09/22/19 17:03 Last 24 Hour Vital Signs Date Time Temp Pulse Resp B/P (MAP) Pulse Ox O2 Delivery O2 Flow Rate FiO2 09/23/19 07:22 73 13 24 09/23/19 05:17 71 12 24 09/23/19 04:00 99.9 72 20 106/55 (72) 98 09/23/19 04:00 Mechanical Ventilator 09/23/19 04:00 24 09/23/19 03:38 72 09/23/19 03:25 70 12 24 09/23/19 01:47 72 12 24 09/23/19 00:01 Mechanical Ventilator 09/23/19 00:00 98.2 71 20 111/59 (76) 98 09/22/19 23:17 70 14 24 09/22/19 21:25 70 13 24 09/22/19 20:05 73 135/58 09/22/19 20:00 Mechanical Ventilator 09/22/19 20:00 73 09/22/19 20:00 24 09/22/19 20:00 98.2 73 20 135/58 (83) 98 09/22/19 19:22 74 13 24 09/22/19 18:00 75 104/47 (66) 09/22/19 17:00 71 14 24 09/22/19 16:00 71 09/22/19 15:55 Mechanical Ventilator 09/22/19 15:55 24 09/22/19 15:53 98.2 72 20 100/44 (62) 98 09/22/19 15:00 70 12 24 09/22/19 13:10 71 13 24 09/22/19 12:00 24 09/22/19 12:00 97.7 67 20 126/49 (74) 98 09/22/19 12:00 Mechanical Ventilator 09/22/19 12:00 68 09/22/19 11:16 67 12 24 09/22/19 09:15 67 15 24 09/22/19 08:13 124/58 09/22/19 08:12 84 124/58 09/22/19 08:00 Mechanical Ventilator 09/22/19 08:00 97.0 85 20 124/58 (80) 98 09/22/19 08:00 80 09/22/19 08:00 24 09/22/19 06:50 80 13 24 09/22/19 04:51 82 14 24 09/22/19 04:00 24 09/22/19 04:00 99.0 80 12 108/50 (69) 98 09/22/19 04:00 80 09/22/19 03:59 Mechanical Ventilator 09/22/19 03:16 80 12 24 09/22/19 01:00 79 13 24 09/22/19 00:00 Mechanical Ventilator 09/22/19 00:00 24 09/22/19 00:00 98.9 73 14 104/54 (71) 98 09/21/19 23:28 78 09/21/19 23:14 76 12 24 09/21/19 21:00 73 99/53 09/21/19 20:53 73 12 24 09/21/19 20:00 Mechanical Ventilator 09/21/19 20:00 98.2 73 14 99/54 (69) 98 09/21/19 19:32 73 09/21/19 19:01 73 12 24 09/21/19 17:01 98.4 09/21/19 16:46 70 12 24 09/21/19 16:00 24 09/21/19 16:00 100.2 68 17 104/49 (67) 98 09/21/19 16:00 Mechanical Ventilator 09/21/19 15:36 68 09/21/19 14:34 68 12 24 09/21/19 12:30 65 12 24 09/21/19 12:00 24 09/21/19 12:00 63 09/21/19 12:00 Mechanical Ventilator 09/21/19 12:00 99.1 63 17 110/52 (71) 97 09/21/19 11:08 62 12 24 09/21/19 08:42 72 143/57 09/21/19 08:42 143/57 09/21/19 08:39 77 15 24 Intake and Output 09/22/19 09/23/19 19:00 07:00 Intake Total 750 ml 600 ml Balance 750 ml 600 ml Free Water 200 ml Tube Feeding 550 ml 600 ml # Bowel Movements 100 Labs Test 09/20/19 11:49 09/20/19 17:08 09/21/19 03:20 09/21/19 12:16 POC Whole Blood Glucose 146 MG/DL (74-106) 158 MG/DL (74-106) White Blood Count 17.8 K/UL (4.8-10.8) Red Blood Count 3.36 M/UL (4.70-6.10) Hemoglobin 8.9 G/DL (14.2-18.0) Hematocrit 28.8 % (42.0-52.0) Mean Corpuscular Volume 86 FL (80-99) Mean Corpuscular Hemoglobin 26.5 PG (27.0-31.0) Mean Corpuscular Hemoglobin Concent 31.0 G/DL (32.0-36.0) Red Cell Distribution Width 19.5 % (11.6-14.8) Platelet Count 393 K/UL (150-450) Mean Platelet Volume 7.2 FL (6.5-10.1) Neutrophils (%) (Auto) 55.6 % (45.0-75.0) Lymphocytes (%) (Auto) 20.2 % (20.0-45.0) Monocytes (%) (Auto) 8.6 % (1.0-10.0) Eosinophils (%) (Auto) 14.9 % (0.0-3.0) Basophils (%) (Auto) 0.8 % (0.0-2.0) Sodium Level 133 MMOL/L (136-145) Potassium Level 3.2 MMOL/L (3.5-5.1) Chloride Level 96 MMOL/L (98-107) Carbon Dioxide Level 29 MMOL/L (21-32) Anion Gap 8 mmol/L (5-15) Blood Urea Nitrogen 63 mg/dL (7-18) Creatinine 3.6 MG/DL (0.55-1.30) Estimat Glomerular Filtration Rate 16.5 mL/min (>60) Glucose Level 129 MG/DL (74-106) Calcium Level 8.8 MG/DL (8.5-10.1) Phosphorus Level 3.4 MG/DL (2.5-4.9) Test 09/21/19 16:39 09/22/19 01:03 09/22/19 06:11 09/22/19 11:53 POC Whole Blood Glucose 176 MG/DL (74-106) 165 MG/DL (74-106) 196 MG/DL (74-106) 197 MG/DL (74-106) Test 09/22/19 16:33 09/22/19 23:27 09/23/19 02:50 09/23/19 05:36 POC Whole Blood Glucose 126 MG/DL (74-106) 174 MG/DL (74-106) 182 MG/DL (74-106) White Blood Count 20.8 K/UL (4.8-10.8) Red Blood Count 3.60 M/UL (4.70-6.10) Hemoglobin 9.2 G/DL (14.2-18.0) Hematocrit 30.5 % (42.0-52.0) Mean Corpuscular Volume 85 FL (80-99) Mean Corpuscular Hemoglobin 25.7 PG (27.0-31.0) Mean Corpuscular Hemoglobin Concent 30.3 G/DL (32.0-36.0) Red Cell Distribution Width 18.2 % (11.6-14.8) Platelet Count 402 K/UL (150-450) Mean Platelet Volume 6.7 FL (6.5-10.1) Neutrophils (%) (Auto) % (45.0-75.0) Lymphocytes (%) (Auto) % (20.0-45.0) Monocytes (%) (Auto) % (1.0-10.0) Eosinophils (%) (Auto) % (0.0-3.0) Basophils (%) (Auto) % (0.0-2.0) Sodium Level 137 MMOL/L (136-145) Potassium Level 2.9 MMOL/L (3.5-5.1) Chloride Level 96 MMOL/L (98-107) Carbon Dioxide Level 27 MMOL/L (21-32) Anion Gap 14 mmol/L (5-15) Blood Urea Nitrogen 81 mg/dL (7-18) Creatinine 4.5 MG/DL (0.55-1.30) Estimat Glomerular Filtration Rate 12.7 mL/min (>60) Glucose Level 145 MG/DL (74-106) Calcium Level 9.1 MG/DL (8.5-10.1) Phosphorus Level 4.1 MG/DL (2.5-4.9) Height (Feet): 5 Height (Inches): 10.00 Weight (Pounds): 121 Objective Physical Exam General Appearance: nad, Chronically Ill Head: normocephalic Eyes: right eye PERRL - Will not open left eye ENT: moist mucus membranes Neck: other - submandibular mass R, fairly rigid with resistance to rotation to L, tracheotomy Respiratory: decreased breath sounds, crackles, other - pacemaker, vent+ Cardiovascular: regular rate, rhythm, edema - anasarca Gastrointestinal: non tender, distended, other - G tube Genitourinary: other Musculoskeletal: other - Contractures all extremities Neurologic: sensory intact, motor weakness, responsive Psychiatric: other Skin: Decubitus/Ulcer - Stage III right elbow, stage III left elbow, stage II sacrum, stage III scrotum, warm/dry Fitz Campos MD Sep 23, 2019 08:18
[2019-09-23] MEDS: Minoxidil 2.5mg tab GT SCH (09:00)
[2019-09-23] MEDS: Metoprolol Tartrate 100mg tab GT SCH ×2 (09:00→20:57)
--- NOTE | 2019-09-23 09:00 | NUR ---
NURSE NOTES: HD RN Esteban Phan called, to hold BP meds since pt will have HD today.
[2019-09-23] MEDS: Lactobacillus-GG tablet GT SCH ×2 (09:12→18:16)
[2019-09-23] MEDS: Zinc Oxide Oint 2oz TOPIC SCH ×2 (09:15→18:17)
--- NOTE | 2019-09-23 09:18 | General Progress Note ---
Assessment/Plan Assessment/Plan: IMPRESSION: 1. anemia. 2. GI bleed. 3. Leukocytosis. 4. Probable sepsis. + BCX 5. Acute on chronic renal failure. 6. Hyponatremia. 7. Severe protein-calorie malnutrition. 8. Significantly elevated C-reactive protein concerning for infectious etiology. 9. Tracheostomy, G-tube. 10. Ventilator dependence. 11. anasarca with bilateral pleural effusion 12. Hematuria 13. V pacing PLAN awaiting placement care noted on vent/ no wean monitor labs ID follow up monitor renal function: HD prognosis poor impression, plan, and exam edited and reviewed in detail care discussed with RN Subjective Allergies: Coded Allergies: No Known Allergies (Unverified , 06/10/19) Subjective remains ill on vent on HD Objective Last 24 Hour Vital Signs Date Time Temp Pulse Resp B/P (MAP) Pulse Ox O2 Delivery O2 Flow Rate FiO2 09/23/19 09:00 74 109/49 09/23/19 09:00 109/49 09/23/19 07:22 73 13 24 09/23/19 05:17 71 12 24 09/23/19 04:00 99.9 72 20 106/55 (72) 98 09/23/19 04:00 Mechanical Ventilator 09/23/19 04:00 24 09/23/19 03:38 72 09/23/19 03:25 70 12 24 09/23/19 01:47 72 12 24 09/23/19 00:01 Mechanical Ventilator 09/23/19 00:00 98.2 71 20 111/59 (76) 98 09/22/19 23:17 70 14 24 09/22/19 21:25 70 13 24 09/22/19 20:05 73 135/58 09/22/19 20:00 Mechanical Ventilator 09/22/19 20:00 73 09/22/19 20:00 24 09/22/19 20:00 98.2 73 20 135/58 (83) 98 09/22/19 19:22 74 13 24 09/22/19 18:00 75 104/47 (66) 09/22/19 17:00 71 14 24 09/22/19 16:00 71 09/22/19 15:55 Mechanical Ventilator 09/22/19 15:55 24 09/22/19 15:53 98.2 72 20 100/44 (62) 98 09/22/19 15:00 70 12 24 09/22/19 13:10 71 13 24 09/22/19 12:00 24 09/22/19 12:00 97.7 67 20 126/49 (74) 98 09/22/19 12:00 Mechanical Ventilator 09/22/19 12:00 68 09/22/19 11:16 67 12 24 Intake and Output 09/22/19 09/23/19 19:00 07:00 Intake Total 750 ml 600 ml Balance 750 ml 600 ml Free Water 200 ml Tube Feeding 550 ml 600 ml # Bowel Movements 100 Laboratory Tests 09/22/19 11:53: POC Whole Blood Glucose 197H 09/22/19 16:33: POC Whole Blood Glucose 126H 09/22/19 23:27: POC Whole Blood Glucose 174H 09/23/19 02:50: White Blood Count 20.8H, Red Blood Count 3.60L, Hemoglobin 9.2L, Hematocrit 30.5L, Mean Corpuscular Volume 85, Mean Corpuscular Hemoglobin 25.7L, Mean Corpuscular Hemoglobin Concent 30.3L, Red Cell Distribution Width 18.2H, Platelet Count 402, Mean Platelet Volume 6.7, Neutrophils (%) (Auto) , Lymphocytes (%) (Auto) , Monocytes (%) (Auto) , Eosinophils (%) (Auto) , Basophils (%) (Auto) , Neutrophils % (Manual) [Pending], Lymphocytes % (Manual) [Pending], Platelet Estimate [Pending], Platelet Morphology [Pending], Sodium Level 137, Potassium Level 2.9L, Chloride Level 96L, Carbon Dioxide Level 27, Anion Gap 14, Blood Urea Nitrogen 81H, Creatinine 4.5H, Estimat Glomerular Filtration Rate 12.7, Glucose Level 145H, Calcium Level 9.1, Phosphorus Level 4.1 09/23/19 05:36: POC Whole Blood Glucose 182H Height (Feet): 5 Height (Inches): 10.00 Weight (Pounds): 121 Objective GENERAL: Ill-appearing male, chronically debilitated. HEENT: Tracheostomy in midline. Questionable fullness in the submandibular region. LUNGS: Coarse breath sounds. reduced breath sounds CARDIAC: S1, S2. Regular rate and rhythm. ABDOMEN: Soft. G-tube. EXTREMITIES: With noted edema. NEUROLOGICAL: Poorly responsive, weak diffusely. Kain Ramirez MD Sep 23, 2019 09:18
--- NOTE | 2019-09-23 10:00 | NUR ---
NURSE NOTES: Family member daughter at bedside,updated re pt's status and plans of care.
--- NOTE | 2019-09-23 11:10 | Infectious Diseases Prog Note ---
Assessment/Plan Assessment/Plan antibiotics : none A 1. klebsiella catheter infection s/p rx 2. respiratory failure 3. leucocytosis increased 4. klebsiella, pseudomonas, providencia pneumonia s/p rx COVID 19 test negative x 2 5. renal failure on HD P 1. observe off antibiotics 2. stool for c.diff 3. blood culture 4. sputum culture 5. will follow up cultures Subjective ROS Limited/Unobtainable: Yes Allergies: Coded Allergies: No Known Allergies (Unverified , 06/10/19) Objective Last 24 Hour Vital Signs Date Time Temp Pulse Resp B/P (MAP) Pulse Ox O2 Delivery O2 Flow Rate FiO2 09/23/19 09:00 74 109/49 09/23/19 09:00 109/49 09/23/19 08:00 98.2 74 14 109/49 (69) 98 09/23/19 07:22 73 13 24 09/23/19 05:17 71 12 24 09/23/19 04:00 99.9 72 20 106/55 (72) 98 09/23/19 04:00 Mechanical Ventilator 09/23/19 04:00 24 09/23/19 03:38 72 09/23/19 03:25 70 12 24 09/23/19 01:47 72 12 24 09/23/19 00:01 Mechanical Ventilator 09/23/19 00:00 98.2 71 20 111/59 (76) 98 09/22/19 23:17 70 14 24 09/22/19 21:25 70 13 24 09/22/19 20:05 73 135/58 09/22/19 20:00 Mechanical Ventilator 09/22/19 20:00 73 09/22/19 20:00 24 09/22/19 20:00 98.2 73 20 135/58 (83) 98 09/22/19 19:22 74 13 24 09/22/19 18:00 75 104/47 (66) 09/22/19 17:00 71 14 24 09/22/19 16:00 71 09/22/19 15:55 Mechanical Ventilator 09/22/19 15:55 24 09/22/19 15:53 98.2 72 20 100/44 (62) 98 09/22/19 15:00 70 12 24 09/22/19 13:10 71 13 24 09/22/19 12:00 24 09/22/19 12:00 97.7 67 20 126/49 (74) 98 09/22/19 12:00 Mechanical Ventilator 09/22/19 12:00 68 09/22/19 11:16 67 12 24 Height (Feet): 5 Height (Inches): 10.00 Weight (Pounds): 121 HEENT: status post trach Respiratory/Chest: lungs clear Cardiovascular: normal rate, regular rhythm, no gallop/murmur Abdomen: soft, non tender, other - GT Extremities: no edema, other - right subclavian catheter Laboratory Tests Test 09/22/19 11:53 09/22/19 16:33 09/22/19 23:27 09/23/19 02:50 POC Whole Blood Glucose 197 MG/DL (74-106) H 126 MG/DL (74-106) H 174 MG/DL (74-106) H White Blood Count 20.8 K/UL (4.8-10.8) H Red Blood Count 3.60 M/UL (4.70-6.10) L Hemoglobin 9.2 G/DL (14.2-18.0) L Hematocrit 30.5 % (42.0-52.0) L Mean Corpuscular Volume 85 FL (80-99) Mean Corpuscular Hemoglobin 25.7 PG (27.0-31.0) L Mean Corpuscular Hemoglobin Concent 30.3 G/DL (32.0-36.0) L Red Cell Distribution Width 18.2 % (11.6-14.8) H Platelet Count 402 K/UL (150-450) Mean Platelet Volume 6.7 FL (6.5-10.1) Neutrophils (%) (Auto) % (45.0-75.0) Lymphocytes (%) (Auto) % (20.0-45.0) Monocytes (%) (Auto) % (1.0-10.0) Eosinophils (%) (Auto) % (0.0-3.0) Basophils (%) (Auto) % (0.0-2.0) Differential Total Cells Counted 100 Neutrophils % (Manual) 63 % (45-75) Lymphocytes % (Manual) 19 % (20-45) L Monocytes % (Manual) 2 % (1-10) Eosinophils % (Manual) 15 % (0-3) H Basophils % (Manual) 1 % (0-2) Band Neutrophils 0 % (0-8) Platelet Estimate Adequate Platelet Morphology Normal Hypochromasia 2+ Anisocytosis 2+ Sodium Level 137 MMOL/L (136-145) Potassium Level 2.9 MMOL/L (3.5-5.1) L Chloride Level 96 MMOL/L (98-107) L Carbon Dioxide Level 27 MMOL/L (21-32) Anion Gap 14 mmol/L (5-15) Blood Urea Nitrogen 81 mg/dL (7-18) H Creatinine 4.5 MG/DL (0.55-1.30) H Estimat Glomerular Filtration Rate 12.7 mL/min (>60) Glucose Level 145 MG/DL (74-106) H Calcium Level 9.1 MG/DL (8.5-10.1) Phosphorus Level 4.1 MG/DL (2.5-4.9) Test 09/23/19 05:36 POC Whole Blood Glucose 182 MG/DL (74-106) H Current Medications Medications (Trade) Dose Ordered Sig/Leonel Route PRN Reason Start Time Stop Time Status Last Admin Dose Admin Acetaminophen (Tylenol) 650 mg Q4H PRN GT Mild Pain (Pain Scale 1-3) 09/21/19 12:45 10/21/19 12:44 09/21/19 16:31 Atorvastatin Calcium (Lipitor) 40 mg BEDTIME GT 08/09/19 21:00 11/07/19 20:59 09/22/19 20:05 Chlorhexidine Gluconate (Felipa-Hex 2%) 1 applic DAILY@2000 TOPIC 09/12/19 20:00 12/11/19 19:59 09/22/19 20:04 Clonidine HCl (Catapres Tab) 0.1 mg Q4H PRN GT For High Blood Pressure 09/09/19 12:30 12/08/19 05:29 09/15/19 04:10 Dextrose (Dextrose 50%) 25 ml Q30M PRN IV Hypoglycemia 08/09/19 07:30 11/07/19 07:29 Dextrose (Dextrose 50%) 50 ml Q30M PRN IV Hypoglycemia 08/09/19 07:30 11/07/19 07:29 Epoetin Andreas (Epoetin Andreas(ESRD on dialysis)) 10,000 unit WED-WED-WED SUBQ 09/20/19 21:00 12/19/19 20:59 09/22/19 20:22 Famotidine (Pepcid) 20 mg DAILY GT 08/30/19 09:00 11/28/19 08:59 09/23/19 09:12 Heparin Sodium (Porcine) (Heparin Sod 1000 units/ml 10ml) 2,000 unit ONCE PRN IV HD USE 09/23/19 07:00 09/23/19 23:59 Heparin Sodium (Porcine) (Heparin) 1,000 unit POSTHD PRN INJ HD USE 09/23/19 07:00 09/23/19 23:59 Insulin Aspart (NovoLOG) Q6HR SUBQ 08/10/19 00:00 11/07/19 11:29 09/23/19 05:37 Lactobacillus Acidophilus (Culturelle) 1 tab TWICE A DAY GT 09/14/19 18:00 12/13/19 17:59 09/23/19 09:12 Metoprolol Tartrate (Lopressor) 200 mg Q12HR GT 08/09/19 09:00 11/07/19 08:59 09/22/19 20:05 Minoxidil (Loniten) 5 mg DAILY GT 08/09/19 09:00 11/07/19 08:59 09/22/19 08:13 Sodium Chloride 1,000 ml @ 500 mls/hr Q2H PRN IVLG sbp<90 during hd 09/23/19 07:00 09/23/19 23:59 Zinc Oxide (Zinc Oxide) 1 applic BID TOPIC 08/10/19 18:00 11/08/19 17:59 09/23/19 09:15 Farnaz Lyle MD Sep 23, 2019 11:10
[2019-09-23 12:00] VITALS: BP 120/56
--- NOTE | 2019-09-23 14:00 | NUR ---
NURSE NOTES: Oral care done,tracheal/oral secretions suctioned PRN.
--- NOTE | 2019-09-23 15:19 | NUR ---
CASE MANAGEMENT:REVIEW SI;PNA. ACUTE RENAL FAILURE. 98.2 93 21 146/91 97% 15L NRB FIO2 @ 100% WBC 20.8 H/H 9.2/30.5 K+ 2.9 BUN 81 CR 4.5 CR 182 IS;LOPRESSOR GT Q12 PEPCID GT QD CULTURELLE GT BID LONITEN GT QD CLONIDINE GT Q4 PRN KEREN STATUS
--- NOTE | 2019-09-23 15:30 | NUR ---
INSURANCE REVIEW AND PROGRESS NOTES FAXED TO [facility] REF# [id number] RUSSELLM:HARPER P:[phone] F:[phone]
[2019-09-23 16:00] VITALS: BP 110/51
--- NOTE | 2019-09-23 17:00 | NUR ---
NURSE NOTES: Pt stable,no resp distress presented during the shift pulled up turned and repositioned.
--- NOTE | 2019-09-23 18:27 | Surgery Progress Note ---
Surgery Progress Note Subjective Procedure Performed Right femoral temporary hemodialysis catheter removal Additional Comments pending placement Objective Last 24 Hour Vital Signs Date Time Temp Pulse Resp B/P (MAP) Pulse Ox O2 Delivery O2 Flow Rate FiO2 09/23/19 17:03 76 17 24 09/23/19 16:02 Mechanical Ventilator 09/23/19 16:00 75 09/23/19 16:00 24 09/23/19 16:00 98.4 72 24 110/51 (70) 97 09/23/19 15:14 76 15 24 09/23/19 13:06 72 13 24 09/23/19 12:00 98.2 76 12 120/56 (77) 96 09/23/19 12:00 71 09/23/19 12:00 24 09/23/19 12:00 Mechanical Ventilator 09/23/19 11:14 73 14 24 09/23/19 09:08 75 13 24 09/23/19 09:00 74 109/49 09/23/19 09:00 109/49 09/23/19 08:00 24 09/23/19 08:00 98.2 74 14 109/49 (69) 98 09/23/19 08:00 Mechanical Ventilator 09/23/19 08:00 74 09/23/19 07:22 73 13 24 09/23/19 05:17 71 12 24 09/23/19 04:00 99.9 72 20 106/55 (72) 98 09/23/19 04:00 Mechanical Ventilator 09/23/19 04:00 24 09/23/19 03:38 72 09/23/19 03:25 70 12 24 09/23/19 01:47 72 12 24 09/23/19 00:01 Mechanical Ventilator 09/23/19 00:00 98.2 71 20 111/59 (76) 98 09/22/19 23:17 70 14 24 09/22/19 21:25 70 13 24 09/22/19 20:05 73 135/58 09/22/19 20:00 Mechanical Ventilator 09/22/19 20:00 73 09/22/19 20:00 24 09/22/19 20:00 98.2 73 20 135/58 (83) 98 09/22/19 19:22 74 13 24 I&O Intake and Output 09/22/19 09/23/19 19:00 07:00 Intake Total 750 ml 600 ml Balance 750 ml 600 ml Free Water 200 ml Tube Feeding 550 ml 600 ml # Bowel Movements 100 Dressing: other Wound: other Drains: other Cardiovascular: RSR Respiratory: decreased breath sounds Abdomen: soft, non-tender, present bowel sounds Extremities: no cyanosis Laboratory Tests Test 09/22/19 23:27 09/23/19 02:50 09/23/19 05:36 09/23/19 13:10 POC Whole Blood Glucose 174 MG/DL (74-106) H 182 MG/DL (74-106) H Pending White Blood Count 20.8 K/UL (4.8-10.8) H Red Blood Count 3.60 M/UL (4.70-6.10) L Hemoglobin 9.2 G/DL (14.2-18.0) L Hematocrit 30.5 % (42.0-52.0) L Mean Corpuscular Volume 85 FL (80-99) Mean Corpuscular Hemoglobin 25.7 PG (27.0-31.0) L Mean Corpuscular Hemoglobin Concent 30.3 G/DL (32.0-36.0) L Red Cell Distribution Width 18.2 % (11.6-14.8) H Platelet Count 402 K/UL (150-450) Mean Platelet Volume 6.7 FL (6.5-10.1) Neutrophils (%) (Auto) % (45.0-75.0) Lymphocytes (%) (Auto) % (20.0-45.0) Monocytes (%) (Auto) % (1.0-10.0) Eosinophils (%) (Auto) % (0.0-3.0) Basophils (%) (Auto) % (0.0-2.0) Differential Total Cells Counted 100 Neutrophils % (Manual) 63 % (45-75) Lymphocytes % (Manual) 19 % (20-45) L Monocytes % (Manual) 2 % (1-10) Eosinophils % (Manual) 15 % (0-3) H Basophils % (Manual) 1 % (0-2) Band Neutrophils 0 % (0-8) Platelet Estimate Adequate Platelet Morphology Normal Hypochromasia 2+ Anisocytosis 2+ Sodium Level 137 MMOL/L (136-145) Potassium Level 2.9 MMOL/L (3.5-5.1) L Chloride Level 96 MMOL/L (98-107) L Carbon Dioxide Level 27 MMOL/L (21-32) Anion Gap 14 mmol/L (5-15) Blood Urea Nitrogen 81 mg/dL (7-18) H Creatinine 4.5 MG/DL (0.55-1.30) H Estimat Glomerular Filtration Rate 12.7 mL/min (>60) Glucose Level 145 MG/DL (74-106) H Calcium Level 9.1 MG/DL (8.5-10.1) Phosphorus Level 4.1 MG/DL (2.5-4.9) Test 09/23/19 17:38 POC Whole Blood Glucose 126 MG/DL (74-106) H Plan Problems: (1) Anemia (2) Hyponatremia (3) Leukocytosis Assessment & Plan: Tracheostomy, left chest pacemaker are again demonstrated. There is bilateral interstitial and airspace disease and bilateral pleural fluid again demonstrated. This appears more severe than on the prior study. Bilateral interstitial and airspace infiltrates versus edema. Bilateral pleural effusions Leukocytosis, anemia, tachycardia, abnormal labs. Wound evaluated and likely etiology of patient's sepsis. Leukocytosis etiology work-up antibiotics per infectious disease Appreciate nephrology input transfuse with dialysis We will follow with recommendations thank you allowing participation's care plan HD access temp HD discussed with medical teams line okay HD as per renal persistent leukocytosis flow cyto noted improving trending down right fem line removed (4) Ventilator dependent (5) Right lower lobe pneumonia (6) Hypokalemia (7) Hyperkalemia (8) Anasarca (9) Decubitus skin ulcer Assessment & Plan: pt presented on admission with generalized edemae.Skin assessed under tracheostomy and no areas of concerns noted. GT Insertion is marginally erythematous with small amt slough at stoma. Unstageable Pressure Injury R elbow. Base of wound is 100% yellow slough, Borders are erythematous. Wound oozing small amt haemopurulent exudate.Darker skin tone without elevation in skin temp or erythema periwound. Pt's penis and scrotum are grossly edematous and enlarged and weeping serous exudate from numerous sites both from penis and scrotum. Two small open wounds noted at base of at base of shaft of penis ,and contreras aspect of scrotum. Both wounds oozing large amt sanguineous and serosanguineous exudate. Multiple open wounds with Biofilm at base of each wounds noted to contreras/lateral,inferior and posterior aspects of scrotum. These wounds noted to be oozing moderate amts of serosanguineous exudate. Hypertrophic scar with scattered areas of hyperpigmentation noted to Sacrum. DTPI noted to L Buttocks (L)7cm x (W)9cm. Base of wound is purple and indurated.Darker skin tone without erythema, induration or fluctuance R and L ischial tuberosities. Both heels are boggy with non-blanchable erythema. Tx.Plan: Cleanse wound R elbow with Saline. Apply TheraHoney, Apply Moisture Barrier Paste periwound. Cover with Optifoam drsg.Change Daily and prn. Wash GT site with soap and water.Pat dry. Apply Zinc Oxide Paste to GT site Daily. Leave Open to Air. Apply Zinc Oxide Paste to entire Scrotum, Place ABD pads to R and L lateral, and posterior aspects of scrotum TWICE daily. Apply Cavilon Skin Barrier to malleoli and both Heels. Cover each site with Optifoam drsgs. Change every 7 days and prn. Reposition at least every 2hours or as tolerated. Off-load heels with Pillows. APM/BECCA Mattress overlay. (10) Malnutrition Assessment & Plan: DAILY ESTIMATED NEEDS: Needs based on Renal, critical care, wound/ 61kg 22-30 kcals/kg 8257-4447 total kcals 1.25-2 g protein/kg 76-122 g total protein Fluid per MD, now on HD mL/kg . total fluid mLs NUTRITION DIAGNOSIS: * Swallowing difficulty R/T respiratory failure, dysphagia as evidenced by trach/vent dep, PEG dep * Increased kcal/prot needs R/T wound healing as evidenced by admitted w/ multiple pressure injuries including full thickness wounds at junction of Shaft of penis, dorsal scrotum, R elbow, and DTPI @ L buttocks. CURRENT TF:Vital AF 1.2 @ 50ml/hr x 24 hrs + Garo BID ENTERAL NUTRITION RECOMMENDATIONS: Vital AF 1.2 @ 50ml/hr x 24 hrs to provide 1200ml, 1440kcal,9 0g prot, 973ml free water * Maintain elemental TF of Vital AF 1.2 w/ continued diarrhea -> monitor lytes and renal fxn closely, monitor need for renal TF -> TF @ goal will provide 1642mg K and 2025mg Phos * HOB over 30 degrees/ water flush per MD * Continue Garo BID via PEG (11) Uremia (12) CKD (chronic kidney disease) stage 5, GFR less than 15 ml/min (13) Colon distention Assessment & Plan: discussed with GI likely functional as having lots of loose bm rectal tube kub f/u s/p colonoscopy - findings reviewed with GI Marked distention of the sigmoid colon. 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 No evidence of bowel wall thickening or pneumatosis 12 mm focus of contrast enhancement in the right pectineus muscle. While nonspecific in appearance, appearance raises concern for a possible pseudoaneurysm. Ill- defined thickening of the pectus medius muscle could indicate some intramuscular hemorrhage. The above findings were phoned to Dr. Urias at the time of interpretation Large bilateral pleural effusions Hazy pulmonary parenchymal opacities as well as dense consolidative opacities most likely represent pulmonary edema, but could represent pneumonia Evidence of anasarca elsewhere, with generalized edema of the subcutaneous fat Bladder wall thickening, raises concern for cystitis. Avalos catheter in place Colonic diverticulosis. No evidence of diverticulitis. Tracheostomy Pacemaker Gastrostomy Jonathan Urias Sep 23, 2019 18:27
--- NOTE | 2019-09-23 19:42 | NUR ---
NURSE HAND-OFF REPORT: Important Events on Shift:N/A Patient Status: [] Diet: Vital AF 1.2 at 50 ml/hr GT Pending Orders: N/A Pending Results/Labs:N/A Pending MD notification:N/A Latest Vital Signs: Temperature 98.4 , Pulse 74 , B/P 110 /51 , Respiratory Rate 12 , O2 SAT 97 , Mechanical Ventilator, O2 Flow Rate 15.0 . Vital Sign Comment: [] EKG Rhythm: V-Paced Rhythm change?: N MD Notified?: N - MD Response: Latest Delacruz Fall Score: 70 Fall Risk: High Risk Safety Measures: Call light Within Reach, Bed Alarm Zone 1, Side Rails Side Rails x3, Bed position Low and Locked. Fall Precautions: Yellow Socks Report given to Kate Emmanuel RN.
--- NOTE | 2019-09-23 19:43 | NUR ---
"NURSE NOTES: Report received from TAMICA Ennis. Upon assessment pt. is A/O x 1. Responsive to tactile stimuli. Pt currently undergoing Hemodialysis. EKG showing v-pace. Pt. on vent with settings A/C 12 | Tv 550 | FiO2 24% and Peep of 5. No cardiac or respiratory distress noted. Pt observed with G-tube running Vital AF at 50 with zero residuals. Right IV patent and intact. Rectal tube noted. Bed in lowest and locked position. Bed alarm on and call light within reach. Will continue monitor."
[2019-09-23 20:00] VITALS: BP 107/53
[2019-09-23] MEDS: Dyna-Hex 2% Top Sol 2oz TOPIC SCH (20:56)
[2019-09-23] MEDS: Atorvastatin 20mg tab GT SCH (20:58)
--- NOTE | 2019-09-23 21:00 | NUR ---
NURSE NOTES: HD completed with 2.5L out. C-diff and sputum culture collected and sent to lab.
--- NOTE | 2019-09-23 21:14 | Nephrology Progress Note ---
Assessment/Plan Plan Smoldering Sepsis - IV Abx Established ESRD - HD now TTS. Subjective Subjective Obtunded. Objective Objective Last 24 Hour Vital Signs Date Time Temp Pulse Resp B/P (MAP) Pulse Ox O2 Delivery O2 Flow Rate FiO2 09/23/19 20:57 85 107/54 09/23/19 20:00 24 09/23/19 18:32 74 12 24 09/23/19 17:03 76 17 24 09/23/19 16:02 Mechanical Ventilator 09/23/19 16:00 75 09/23/19 16:00 24 09/23/19 16:00 98.4 72 24 110/51 (70) 97 09/23/19 15:14 76 15 24 09/23/19 13:06 72 13 24 09/23/19 12:00 98.2 76 12 120/56 (77) 96 09/23/19 12:00 71 09/23/19 12:00 24 09/23/19 12:00 Mechanical Ventilator 09/23/19 11:14 73 14 24 09/23/19 09:08 75 13 24 09/23/19 09:00 74 109/49 09/23/19 09:00 109/49 09/23/19 08:00 24 09/23/19 08:00 98.2 74 14 109/49 (69) 98 09/23/19 08:00 Mechanical Ventilator 09/23/19 08:00 74 09/23/19 07:22 73 13 24 09/23/19 05:17 71 12 24 09/23/19 04:00 99.9 72 20 106/55 (72) 98 09/23/19 04:00 Mechanical Ventilator 09/23/19 04:00 24 09/23/19 03:38 72 09/23/19 03:25 70 12 24 09/23/19 01:47 72 12 24 09/23/19 00:01 Mechanical Ventilator 09/23/19 00:00 98.2 71 20 111/59 (76) 98 09/22/19 23:17 70 14 24 09/22/19 21:25 70 13 24 Intake and Output 09/22/19 09/23/19 19:00 07:00 Intake Total 750 ml 600 ml Balance 750 ml 600 ml Free Water 200 ml Tube Feeding 550 ml 600 ml # Bowel Movements 100 Laboratory Tests 8/14/20 23:27: POC Whole Blood Glucose 174H 09/23/19 02:50: White Blood Count 20.8H, Red Blood Count 3.60L, Hemoglobin 9.2L, Hematocrit 30.5L, Mean Corpuscular Volume 85, Mean Corpuscular Hemoglobin 25.7L, Mean Corpuscular Hemoglobin Concent 30.3L, Red Cell Distribution Width 18.2H, Platelet Count 402, Mean Platelet Volume 6.7, Neutrophils (%) (Auto) , Lymphocytes (%) (Auto) , Monocytes (%) (Auto) , Eosinophils (%) (Auto) , Basophils (%) (Auto) , Differential Total Cells Counted 100, Neutrophils % ( Manual) 63, Lymphocytes % (Manual) 19L, Monocytes % (Manual) 2, Eosinophils % ( Manual) 15H, Basophils % (Manual) 1, Band Neutrophils 0, Platelet Estimate Adequate, Platelet Morphology Normal, Hypochromasia 2+, Anisocytosis 2+, Sodium Level 137, Potassium Level 2.9L, Chloride Level 96L, Carbon Dioxide Level 27, Anion Gap 14, Blood Urea Nitrogen 81H, Creatinine 4.5H, Estimat Glomerular Filtration Rate 12.7, Glucose Level 145H, Calcium Level 9.1, Phosphorus Level 4.1 09/23/19 05:36: POC Whole Blood Glucose 182H 09/23/19 13:10: POC Whole Blood Glucose [Pending] 09/23/19 17:38: POC Whole Blood Glucose 126H Height (Feet): 5 Height (Inches): 10.00 Weight (Pounds): 121 Objective CV RR Trach clean Lungs CTA New Perma Cath RIJ. Old Femoral Rancho still in Rt. Groin! Abd SNT. BS + E No CCE Erica Pichardo MD Sep 23, 2019 21:14
--- NOTE | 2019-09-23 22:00 | NUR ---
NURSE NOTES: Left message to MD in regards to clarifying Vent settings and active orders. Pt. in stable condition saturating at 96% O2.
--- NOTE | 2019-09-23 22:04 | General Progress Note ---
Assessment/Plan Assessment/Plan: Assessment - colonoscopy negative to hepatic flexure - diarrhea - presumed TF related - abnormal LFT - Anemia - leukocytosis - stool OB (+) - EGD --> gastritis - Renal failure - Anasarca - resp failure, trach - dysphagia, GT - encephalopathy, contracted - poor px Recommendations - Continue TF - Elevate HOB - f/u labs - PPI - abx - supportive care Subjective Allergies: Coded Allergies: No Known Allergies (Unverified , 06/10/19) Subjective Above noted no events tolerating TF Objective Last 24 Hour Vital Signs Date Time Temp Pulse Resp B/P (MAP) Pulse Ox O2 Delivery O2 Flow Rate FiO2 09/23/19 21:02 86 18 24 09/23/19 20:57 85 107/54 09/23/19 20:00 Mechanical Ventilator 09/23/19 20:00 24 09/23/19 20:00 98.4 83 24 107/53 (71) 97 09/23/19 19:23 81 09/23/19 18:32 74 12 24 09/23/19 17:03 76 17 24 09/23/19 16:02 Mechanical Ventilator 09/23/19 16:00 75 09/23/19 16:00 24 09/23/19 16:00 98.4 72 24 110/51 (70) 97 09/23/19 15:14 76 15 24 09/23/19 13:06 72 13 24 09/23/19 12:00 98.2 76 12 120/56 (77) 96 09/23/19 12:00 71 09/23/19 12:00 24 09/23/19 12:00 Mechanical Ventilator 09/23/19 11:14 73 14 24 09/23/19 09:08 75 13 24 09/23/19 09:00 74 109/49 09/23/19 09:00 109/49 09/23/19 08:00 24 09/23/19 08:00 98.2 74 14 109/49 (69) 98 09/23/19 08:00 Mechanical Ventilator 09/23/19 08:00 74 09/23/19 07:22 73 13 24 09/23/19 05:17 71 12 24 09/23/19 04:00 99.9 72 20 106/55 (72) 98 09/23/19 04:00 Mechanical Ventilator 09/23/19 04:00 24 09/23/19 03:38 72 09/23/19 03:25 70 12 24 09/23/19 01:47 72 12 24 09/23/19 00:01 Mechanical Ventilator 09/23/19 00:00 98.2 71 20 111/59 (76) 98 09/22/19 23:17 70 14 24 Intake and Output 09/22/19 09/23/19 19:00 07:00 Intake Total 750 ml 600 ml Balance 750 ml 600 ml Free Water 200 ml Tube Feeding 550 ml 600 ml # Bowel Movements 100 Laboratory Tests 09/22/19 23:27: POC Whole Blood Glucose 174H 09/23/19 02:50: White Blood Count 20.8H, Red Blood Count 3.60L, Hemoglobin 9.2L, Hematocrit 30.5L, Mean Corpuscular Volume 85, Mean Corpuscular Hemoglobin 25.7L, Mean Corpuscular Hemoglobin Concent 30.3L, Red Cell Distribution Width 18.2H, Platelet Count 402, Mean Platelet Volume 6.7, Neutrophils (%) (Auto) , Lymphocytes (%) (Auto) , Monocytes (%) (Auto) , Eosinophils (%) (Auto) , Basophils (%) (Auto) , Differential Total Cells Counted 100, Neutrophils % ( Manual) 63, Lymphocytes % (Manual) 19L, Monocytes % (Manual) 2, Eosinophils % ( Manual) 15H, Basophils % (Manual) 1, Band Neutrophils 0, Platelet Estimate Adequate, Platelet Morphology Normal, Hypochromasia 2+, Anisocytosis 2+, Sodium Level 137, Potassium Level 2.9L, Chloride Level 96L, Carbon Dioxide Level 27, Anion Gap 14, Blood Urea Nitrogen 81H, Creatinine 4.5H, Estimat Glomerular Filtration Rate 12.7, Glucose Level 145H, Calcium Level 9.1, Phosphorus Level 4.1 09/23/19 05:36: POC Whole Blood Glucose 182H 09/23/19 13:10: POC Whole Blood Glucose [Pending] 09/23/19 17:38: POC Whole Blood Glucose 126H Height (Feet): 5 Height (Inches): 10.00 Weight (Pounds): 121 Objective Debilitated AA man NCAT (+) trach coarse BS RR abd distended, anasarca, (+) GT ext (+) edema contracted Ronny Mustafa MD Sep 23, 2019 22:04
[2019-09-24] VITALS: BP 108/50
[2019-09-24] MEDS: NovoLOG Insulin Flexpen SUBQ SCH ×4 (00:18→17:33)
[2019-09-24 04:00] VITALS: BP 102/41
--- NOTE | 2019-09-24 07:33 | Hematology/Onc Progress Note ---
Assessment/Plan Assessment/Plan Assessment/recs # Leukocytosis - with multiple infections, VRE UTI, flow is negative --> wbc trend 33-->28-->25->23->22->23->24->17.3-->17-->14->16-->15.6-->14-->14- >13->19->18->17->22->22->19->17-->18->20 --> on abx, linezolid and zosyn--> zosyn-->gent-->off --> + blood cultures with coag neg staph likely contaminated --> as per id recs --> has ordered a flow cytometry (with pathology) --> does show increased nK cell activity --> JOURDAN 2 and bcr-abl labs ordered (these are send outs) --> plt 585-->613-->649-->669->663 # Anemia due to chronic disease/kidney disease as well, gi bleed + occult + noted --> was on iron in the past, now on hold --> has been started on Epogen sq --> as per renal care --> egd done and shows gastritis --> on ppi --> egd showed gastritis, colo recently done --> hgb 9-->8.7-->7.6-->9.2-->8.9-->9.2->9.3-->8.8->9.9-->9.2-->8.1-->8.7-->7.9- ->8.6-->8.9-->8.2 # Respiratory failure --> per pulm, s/p trach --> COVID 19 test negative x 2 # Hyperlipidemia --> statin po # Dysphagia s/p gtube with nepro --> per gi # ESRD with r fem julito --> hd as per renal # Dvt ppx scds Appreciate consultation and matt Rn Subjective HEENT: Denies: no symptoms, eye pain, blurred vision, tearing, double vision, ear pain, ear discharge, nose pain, nose congestion, throat pain, throat swelling, mouth pain, mouth swelling, other Respiratory: Denies: no symptoms, cough, shortness of breath, SOB with excertion, SOB at rest, sputum, wheezing, other Genitourinary: Denies: no symptoms, burning, discharge, frequency, flank pain, hematuria, incontinence, pain, urgency, other Neurologic/Psychiatric: Denies: no symptoms, anxiety, depressed, emotional problems, headache, numbness, paresthesia, pre-existing deficit, seizure, tingling, tremors, weakness, other Endocrine: Denies: no symptoms, excessive sweating, flushing, intolerance to cold, intolerance to heat, increased hunger, increased thirst, increased urine, unexplained weight gain, unexplained weight loss, other Allergies: Coded Allergies: No Known Allergies (Unverified , 06/10/19) Subjective 08/15 meds noted, no bleeding, hgb 8.8, wbc 28, path flow pending 08/16 flow pending dw pathologist, results pending, wbc 25, hgb 9 08/17 labs reviewed, meds reviewed, meds noted, no night sweats 08/19 remains obtunded, on vent/trach, no bleeding wbc 21.7 08/20 labs have been reviewed, no bleeding, wbc still elev, path reviewed 08/21 labs are noted, no bleeding, on vent, wbc better 08/22 labs noted, no bleeding, meds reviewed, wbc 24 hgb 7.6 08/23 vent, off abx, c diff negative, h/h stable 08/24 labs reviewed, on abx, wbc 17, hgb 8.9, no hemolysis 08/26 reviewed flow and is negative for leukemia, matt rn 08/27 meds reviewed, no night sweats, matt rn, no major bleeding 08/28 meds reivewed, labs noted 08/29 wbc is stable, approx 15, hgb 8.8, no hemolysis 08/30 labs are noted, is for colo today, hgb 9.9 08/31 right fem julito in place, unchanged, hgb 9.2, gi aware 09/01 labs noted, hgb 8.8, plt >600, no bleeding 09/02 labs noted, no bleeding, with elev wbc still, no new changes 09/03 meds are noted, no bleeding, labs reviewed hgb 8.6 09/04 no major events, hd as per renal, abx, no bleeding hgb low 09/05 labs are noted, no bleeding, meds have been reviewed 09/06 no new labs no hemolysis, cbc is noted, no bleeding 09/07 meds reviewed, no bleeding, matt rn, permacat functioning well 09/09 meds reviewed, wbc still elevated, as per id recs, cbc noted 09/10 is obtunded, with gutbe in place, labs reviewed 09/11 obtunded, as per id, observe now off abx, labs noted, wbc 19 09/12 cbc is pending, remains on epogen, also off abx 09/13 labs reviewed, no bleeding, elev wbc, no night sweats 09/14 meds noted, no bleeding, wbc 19, hgb 9.5, no night sweats 09/21 obtunded, remains on vent, labs noted, no bleeding, hgb 8.9 09/22 obtunded, labs noted, no bleeding, on vent, unchanged 09/23 unchanges, wbc remains elevated 20k, on abx, on vent Objective Objective Current Medications Medications (Trade) Dose Ordered Sig/Leonel Route PRN Reason Start Time Stop Time Status Last Admin Dose Admin Acetaminophen (Tylenol) 650 mg Q4H PRN GT Mild Pain (Pain Scale 1-3) 09/21/19 12:45 10/21/19 12:44 09/21/19 16:31 Atorvastatin Calcium (Lipitor) 40 mg BEDTIME GT 08/09/19 21:00 11/07/19 20:59 09/22/19 20:05 Chlorhexidine Gluconate (Felipa-Hex 2%) 1 applic DAILY@1999 TOPIC 09/12/19 20:00 12/11/19 19:59 09/23/19 20:56 Clonidine HCl (Catapres Tab) 0.1 mg Q4H PRN GT For High Blood Pressure 09/09/19 12:30 12/08/19 05:29 09/15/19 04:10 Dextrose (Dextrose 50%) 25 ml Q30M PRN IV Hypoglycemia 08/09/19 07:30 11/07/19 07:29 Dextrose (Dextrose 50%) 50 ml Q30M PRN IV Hypoglycemia 08/09/19 07:30 11/07/19 07:29 Epoetin Andreas (Epoetin Andreas(ESRD on dialysis)) 10,000 unit WED-WED-WED SUBQ 09/20/19 21:00 12/19/19 20:59 09/22/19 20:22 Famotidine (Pepcid) 20 mg DAILY GT 08/30/19 09:00 11/28/19 08:59 09/23/19 09:12 Insulin Aspart (NovoLOG) Q6HR SUBQ 08/10/19 00:00 11/07/19 11:29 09/24/19 05:38 Lactobacillus Acidophilus (Culturelle) 1 tab TWICE A DAY GT 09/14/19 18:00 12/13/19 17:59 09/23/19 18:16 Metoprolol Tartrate (Lopressor) 200 mg Q12HR GT 08/09/19 09:00 11/07/19 08:59 09/22/19 20:05 Minoxidil (Loniten) 5 mg DAILY GT 08/09/19 09:00 11/07/19 08:59 09/22/19 08:13 Zinc Oxide (Zinc Oxide) 1 applic BID TOPIC 08/10/19 18:00 11/08/19 17:59 09/23/19 18:17 Last 24 Hour Vital Signs Date Time Temp Pulse Resp B/P (MAP) Pulse Ox O2 Delivery O2 Flow Rate FiO2 09/24/19 04:33 85 16 24 09/24/19 04:00 24 09/24/19 04:00 Mechanical Ventilator 09/24/19 04:00 97.9 79 17 102/41 (61) 100 09/24/19 03:34 79 09/24/19 03:07 79 16 24 09/24/19 00:50 81 16 24 09/24/19 00:00 Mechanical Ventilator 09/24/19 00:00 98.1 60 20 108/50 (69) 95 09/23/19 23:34 87 09/23/19 22:45 86 18 24 09/23/19 21:02 86 18 24 09/23/19 20:57 85 107/54 09/23/19 20:00 Mechanical Ventilator 09/23/19 20:00 24 09/23/19 20:00 98.4 83 24 107/53 (71) 97 09/23/19 19:23 81 09/23/19 18:32 74 12 24 09/23/19 17:03 76 17 24 09/23/19 16:02 Mechanical Ventilator 09/23/19 16:00 75 09/23/19 16:00 24 09/23/19 16:00 98.4 72 24 110/51 (70) 97 09/23/19 15:14 76 15 24 09/23/19 13:06 72 13 24 09/23/19 12:00 98.2 76 12 120/56 (77) 96 09/23/19 12:00 71 09/23/19 12:00 24 09/23/19 12:00 Mechanical Ventilator 09/23/19 11:14 73 14 24 09/23/19 09:08 75 13 24 09/23/19 09:00 74 109/49 09/23/19 09:00 109/49 09/23/19 08:00 24 09/23/19 08:00 98.2 74 14 109/49 (69) 98 09/23/19 08:00 Mechanical Ventilator 09/23/19 08:00 74 09/23/19 07:22 73 13 24 09/23/19 05:17 71 12 24 09/23/19 04:00 99.9 72 20 106/55 (72) 98 09/23/19 04:00 Mechanical Ventilator 09/23/19 04:00 24 09/23/19 03:38 72 09/23/19 03:25 70 12 24 09/23/19 01:47 72 12 24 09/23/19 00:01 Mechanical Ventilator 09/23/19 00:00 98.2 71 20 111/59 (76) 98 09/22/19 23:17 70 14 24 09/22/19 21:25 70 13 24 09/22/19 20:05 73 135/58 09/22/19 20:00 Mechanical Ventilator 09/22/19 20:00 73 09/22/19 20:00 24 09/22/19 20:00 98.2 73 20 135/58 (83) 98 09/22/19 19:22 74 13 24 09/22/19 18:00 75 104/47 (66) 09/22/19 17:00 71 14 24 09/22/19 16:00 71 09/22/19 15:55 Mechanical Ventilator 09/22/19 15:55 24 09/22/19 15:53 98.2 72 20 100/44 (62) 98 09/22/19 15:00 70 12 24 09/22/19 13:10 71 13 24 09/22/19 12:00 24 09/22/19 12:00 97.7 67 20 126/49 (74) 98 09/22/19 12:00 Mechanical Ventilator 09/22/19 12:00 68 09/22/19 11:16 67 12 24 09/22/19 09:15 67 15 24 09/22/19 08:13 124/58 09/22/19 08:12 84 124/58 09/22/19 08:00 Mechanical Ventilator 09/22/19 08:00 97.0 85 20 124/58 (80) 98 09/22/19 08:00 80 09/22/19 08:00 24 Intake and Output 09/23/19 09/24/19 19:00 07:00 Intake Total 1010 ml 600 ml Output Total 1 ml Balance 1009 ml 600 ml Free Water 230 ml 100 ml Tube Feeding 600 ml 500 ml Other 180 ml Output Urine Total 1 ml Stool Total 0 ml Labs Test 09/21/19 12:16 09/21/19 16:39 09/22/19 01:03 09/22/19 06:11 POC Whole Blood Glucose 158 MG/DL (74-106) 176 MG/DL (74-106) 165 MG/DL (74-106) 196 MG/DL (74-106) Test 09/22/19 11:53 09/22/19 16:33 09/22/19 23:27 09/23/19 02:50 POC Whole Blood Glucose 197 MG/DL (74-106) 126 MG/DL (74-106) 174 MG/DL (74-106) White Blood Count 20.8 K/UL (4.8-10.8) Red Blood Count 3.60 M/UL (4.70-6.10) Hemoglobin 9.2 G/DL (14.2-18.0) Hematocrit 30.5 % (42.0-52.0) Mean Corpuscular Volume 85 FL (80-99) Mean Corpuscular Hemoglobin 25.7 PG (27.0-31.0) Mean Corpuscular Hemoglobin Concent 30.3 G/DL (32.0-36.0) Red Cell Distribution Width 18.2 % (11.6-14.8) Platelet Count 402 K/UL (150-450) Mean Platelet Volume 6.7 FL (6.5-10.1) Neutrophils (%) (Auto) % (45.0-75.0) Lymphocytes (%) (Auto) % (20.0-45.0) Monocytes (%) (Auto) % (1.0-10.0) Eosinophils (%) (Auto) % (0.0-3.0) Basophils (%) (Auto) % (0.0-2.0) Differential Total Cells Counted 100 Neutrophils % (Manual) 63 % (45-75) Lymphocytes % (Manual) 19 % (20-45) Monocytes % (Manual) 2 % (1-10) Eosinophils % (Manual) 15 % (0-3) Basophils % (Manual) 1 % (0-2) Band Neutrophils 0 % (0-8) Platelet Estimate Adequate Platelet Morphology Normal Hypochromasia 2+ Anisocytosis 2+ Sodium Level 137 MMOL/L (136-145) Potassium Level 2.9 MMOL/L (3.5-5.1) Chloride Level 96 MMOL/L (98-107) Carbon Dioxide Level 27 MMOL/L (21-32) Anion Gap 14 mmol/L (5-15) Blood Urea Nitrogen 81 mg/dL (7-18) Creatinine 4.5 MG/DL (0.55-1.30) Estimat Glomerular Filtration Rate 12.7 mL/min (>60) Glucose Level 145 MG/DL (74-106) Calcium Level 9.1 MG/DL (8.5-10.1) Phosphorus Level 4.1 MG/DL (2.5-4.9) Test 09/23/19 05:36 09/23/19 13:10 09/23/19 17:38 09/24/19 00:16 POC Whole Blood Glucose 182 MG/DL (74-106) 126 MG/DL (74-106) 172 MG/DL (74-106) Test 09/24/19 05:36 Micro Microbiology Date/Time Source Procedure Growth Status 09/23/19 22:00 Stool Clostridium difficile Toxin Assay - Final Complete Height (Feet): 5 Height (Inches): 10.00 Weight (Pounds): 123 Objective Physical Exam General Appearance: nad, Chronically Ill Head: normocephalic Eyes: right eye PERRL - Will not open left eye ENT: moist mucus membranes Neck: other - submandibular mass R, fairly rigid with resistance to rotation to L, tracheotomy Respiratory: decreased breath sounds, crackles, other - pacemaker, vent+ Cardiovascular: regular rate, rhythm, edema - anasarca Gastrointestinal: non tender, distended, other - G tube Genitourinary: other Musculoskeletal: other - Contractures all extremities Neurologic: sensory intact, motor weakness, responsive Psychiatric: other Skin: Decubitus/Ulcer - Stage III right elbow, stage III left elbow, stage II sacrum, stage III scrotum, warm/dry Fitz Campos MD Sep 24, 2019 07:33
--- NOTE | 2019-09-24 07:37 | NUR ---
NURSE HAND-OFF REPORT: Important Events on Shift: 100 cc output diarrhea rectal tube Patient Status: stable Diet: Vital AF @ 50 Pending Orders: Y Pending Results/Labs:Y Pending MD notification:Y Latest Vital Signs: Temperature 97.9 , Pulse 85 , B/P 102 /41 , Respiratory Rate 16 , O2 SAT 100 , Mechanical Ventilator, O2 Flow Rate 15.0 . Vital Sign Comment: EKG Rhythm: V-Paced Rhythm change?: N MD Notified?: N - MD Response: Latest Delacruz Fall Score: 70 Fall Risk: High Risk Safety Measures: Call light Within Reach, Bed Alarm Zone 1, Side Rails Side Rails x3, Bed position Low and Locked. Fall Precautions: Yellow Socks Report given to TAMICA Yu.
--- NOTE | 2019-09-24 07:39 | NUR ---
NURSE NOTES: Received report from TAMICA Moran. The patient is resting on the bed without acute distress or shortness of breath. The patient is obtunded but opening eyes with tracking upon verbal and tactile stimuli. The patient's communication made by facial expression and body movement. The patient is trach'ed and on ventilator on following setting and oxygen saturation is 100%: Portex 8, AC 12, TV 550, FiO2 24%, and PEEP 5. V-pacing with HR of 70s on the cardiac nurse specialist. The patient's GT is intact and patent and running vital AF 1.2 @ 50mL/hr and no residual noted. The patient has rectal tube that is intact and patent and draining by gravity. The patient has R subclavian permacath for HD access, and last HD was done on 09/22 with 2.5L out per order. The patient has R FA 18G that is intact and patent. New IV inserted on L FA 20G that is intact and patent. Skin issue noted and dressing intact. The patient's bed in the lowest position, call light in reach, and fall and aspiration precaution reinforced. IV site intact and patent. Will follow up the lab and order. Will closely monitor the patient. Will continue plan of care.
--- NOTE | 2019-09-24 07:55 | NUR ---
NURSE NOTES: Dr. Campos at the bedside assessed the patient. Dr. Campos ordered CBC and CMP for follow up. Will closely monitor the patient. Will continue plan of care.
[2019-09-24 08:00] VITALS: BP 104/44
--- NOTE | 2019-09-24 08:00 | NUR ---
NURSE NOTES: Initial vital signs taken. Initial nursing assessment done. Will closely monitor the patient. Will continue plan of care.
[2019-09-24] MEDS ORDERED: Lomotil 2.5mg tab ORAL PRN (08:45)
--- NOTE | 2019-09-24 08:45 | NUR ---
NURSE NOTES: Dr. Ramirez at the bedside assessed the patient. Dr. Ramirez was notified regarding abnormal lab that was done 09/22 and 09/23. Dr. Ramirez ordered KCL 40mEq GT once and anti-diarrhea medication. Will carry out the order as soon as possible. Will continue plan of care.
[2019-09-24 08:51] LABS: BASOPHILS % (AUTO) 0.8 % (0.0-2.0); EOSINOPHILS % (AUTO) 10.3 % (0.0-3.0); HEMATOCRIT 29.4 % (42.0-52.0); HEMOGLOBIN 8.8 G/DL (14.2-18.0); MEAN CORPUSCULAR VOLUME 85 FL (80-99); PLATELET COUNT 413 K/UL (150-450); RED BLOOD COUNT 3.46 M/UL (4.70-6.10); RED CELL DISTRIBUTION WIDTH 17.3 % (11.6-14.8); WHITE BLOOD COUNT 15.1 K/UL (4.8-10.8)
[2019-09-24] MEDS: Minoxidil 2.5mg tab GT SCH (09:00)
[2019-09-24] MEDS: Metoprolol Tartrate 100mg tab GT SCH ×2 (09:00→20:42)
--- NOTE | 2019-09-24 09:00 | NUR ---
NURSE NOTES: Dr. Mustafa at the bedside assessed the patient. Dr. Mustafa was notified regarding continuous large amount of diarrhea and hypokalemia. Dr. Mustafa ordered scheduled anti-diarrheal medication. Will administer as ordered. Will continue plan of care.
[2019-09-24 09:08] LABS: ALANINE AMINOTRANSFERASE 30 U/L (12-78); ALBUMIN/GLOBULIN RATIO 0.3 (1.0-2.7); ALKALINE PHOSPHATASE 156 U/L (46-116); ANION GAP 7 mmol/L (5-15); ASPARTATE AMINO TRANSFERASE 39 U/L (15-37); BILIRUBIN,TOTAL 0.6 MG/DL (0.2-1.0); BLOOD UREA NITROGEN 45 mg/dL (7-18); CALCIUM 8.8 MG/DL (8.5-10.1); CARBON DIOXIDE 31 MMOL/L (21-32); CHLORIDE 94 MMOL/L (98-107); CREATININE 2.8 MG/DL (0.55-1.30); POTASSIUM 2.8 MMOL/L (3.5-5.1); SODIUM 131 MMOL/L (136-145)
[2019-09-24] MEDS: Lactobacillus-GG tablet GT SCH ×2 (09:57→17:31)
[2019-09-24] MEDS: Zinc Oxide Oint 2oz TOPIC SCH ×2 (09:59→17:34)
--- NOTE | 2019-09-24 10:00 | NUR ---
NURSE NOTES: Medications administered per order. Held blood pressure medication since the patient's blood pressure on low side. Notified Dr. Ramirez and Dr. Brito for further order for hypotension. Will closely monitor the patient. Will continue plan of care.
--- NOTE | 2019-09-24 10:10 | NUR ---
NURSE NOTES: Dr. Ramirez ordered Albumin bolus x1 for hypotension. Will administer as ordered. Will continue plan of care.
--- NOTE | 2019-09-24 10:20 | General Progress Note ---
Assessment/Plan Assessment/Plan: IMPRESSION: 1. anemia. 2. diarrhea 3. Leukocytosis. 4. hypotension 5. Acute on chronic renal failure. 6. Hyponatremia. 7. Severe protein-calorie malnutrition. 8. Significantly elevated C-reactive protein concerning for infectious etiology. 9. Tracheostomy, G-tube. 10. Ventilator dependence. 11. anasarca 12. Hematuria 13. V pacing PLAN rectal tube lomotil replace K bolus Albumin care noted on vent/ no wean monitor labs ID follow up monitor renal function: HD prognosis poor impression, plan, and exam edited and reviewed in detail care discussed with RN Subjective ROS Limited/Unobtainable: Yes Allergies: Coded Allergies: No Known Allergies (Unverified , 06/10/19) Subjective remains ill on vent on HD hypotensive significant diarrhea with rectal tube Objective Last 24 Hour Vital Signs Date Time Temp Pulse Resp B/P (MAP) Pulse Ox O2 Delivery O2 Flow Rate FiO2 09/24/19 09:00 82 98/45 09/24/19 09:00 98/45 09/24/19 08:22 83 09/24/19 07:04 84 23 24 09/24/19 04:33 85 16 24 09/24/19 04:00 24 09/24/19 04:00 Mechanical Ventilator 09/24/19 04:00 97.9 79 17 102/41 (61) 100 09/24/19 03:34 79 09/24/19 03:07 79 16 24 09/24/19 00:50 81 16 24 09/24/19 00:00 Mechanical Ventilator 09/24/19 00:00 98.1 60 20 108/50 (69) 95 09/23/19 23:34 87 09/23/19 22:45 86 18 24 09/23/19 21:02 86 18 24 09/23/19 20:57 85 107/54 09/23/19 20:00 Mechanical Ventilator 09/23/19 20:00 24 09/23/19 20:00 98.4 83 24 107/53 (71) 97 09/23/19 19:23 81 09/23/19 18:32 74 12 24 09/23/19 17:03 76 17 24 09/23/19 16:02 Mechanical Ventilator 09/23/19 16:00 75 09/23/19 16:00 24 09/23/19 16:00 98.4 72 24 110/51 (70) 97 09/23/19 15:14 76 15 24 09/23/19 13:06 72 13 24 09/23/19 12:00 98.2 76 12 120/56 (77) 96 09/23/19 12:00 71 09/23/19 12:00 24 09/23/19 12:00 Mechanical Ventilator 09/23/19 11:14 73 14 24 Intake and Output 09/23/19 09/24/19 19:00 07:00 Intake Total 1010 ml 750 ml Output Total 1 ml Balance 1009 ml 750 ml Free Water 230 ml 100 ml Tube Feeding 600 ml 550 ml Other 180 ml 100 ml Output Urine Total 1 ml Stool Total 0 ml Laboratory Tests 09/23/19 13:10: POC Whole Blood Glucose [Pending] 09/23/19 17:38: POC Whole Blood Glucose 126H 09/24/19 00:16: POC Whole Blood Glucose 172H 09/24/19 05:36: POC Whole Blood Glucose [Pending] 09/24/19 08:30: White Blood Count 15.1H, Red Blood Count 3.46L, Hemoglobin 8.8L, Hematocrit 29.4L, Mean Corpuscular Volume 85, Mean Corpuscular Hemoglobin 25.4L, Mean Corpuscular Hemoglobin Concent 29.8L, Red Cell Distribution Width 17.3H, Platelet Count 413, Mean Platelet Volume 6.2L, Neutrophils (%) (Auto) 64.0, Lymphocytes (%) (Auto) 16.0L, Monocytes (%) (Auto) 9.0, Eosinophils (%) (Auto) 10.3H, Basophils (%) (Auto) 0.8, Sodium Level 131L, Potassium Level 2.8L, Chloride Level 94L, Carbon Dioxide Level 31, Anion Gap 7, Blood Urea Nitrogen 45H, Creatinine 2.8H, Estimat Glomerular Filtration Rate 22.0, Glucose Level 190H, Calcium Level 8.8, Total Bilirubin 0.6, Aspartate Amino Transf (AST/SGOT) 39H, Alanine Aminotransferase (ALT/SGPT) 30, Alkaline Phosphatase 156H, Total Protein 8.8H, Albumin 2.0L, Globulin 6.8, Albumin/Globulin Ratio 0.3L Height (Feet): 5 Height (Inches): 10.00 Weight (Pounds): 123 Objective GENERAL: Ill-appearing male, chronically debilitated. HEENT: Tracheostomy in midline. Questionable fullness in the submandibular region. LUNGS: Coarse breath sounds. reduced breath sounds CARDIAC: S1, S2. Regular rate and rhythm. ABDOMEN: Soft. G-tube. EXTREMITIES: With noted edema. NEUROLOGICAL: Poorly responsive, weak diffusely. Kain Ramirez MD Sep 24, 2019 10:20
--- NOTE | 2019-09-24 10:27 | Nephrology Progress Note ---
Assessment/Plan Plan Smoldering Sepsis - IV Abx Established ESRD - HD now TTS. K. 2.8 See orders. Subjective Subjective Obtunded. Per RN SBP 80 Objective Objective Last 24 Hour Vital Signs Date Time Temp Pulse Resp B/P (MAP) Pulse Ox O2 Delivery O2 Flow Rate FiO2 09/24/19 09:00 82 98/45 09/24/19 09:00 98/45 09/24/19 08:22 83 09/24/19 07:04 84 23 24 09/24/19 04:33 85 16 24 09/24/19 04:00 24 09/24/19 04:00 Mechanical Ventilator 09/24/19 04:00 97.9 79 17 102/41 (61) 100 09/24/19 03:34 79 09/24/19 03:07 79 16 24 09/24/19 00:50 81 16 24 09/24/19 00:00 Mechanical Ventilator 09/24/19 00:00 98.1 60 20 108/50 (69) 95 09/23/19 23:34 87 09/23/19 22:45 86 18 24 09/23/19 21:02 86 18 24 09/23/19 20:57 85 107/54 09/23/19 20:00 Mechanical Ventilator 09/23/19 20:00 24 09/23/19 20:00 98.4 83 24 107/53 (71) 97 09/23/19 19:23 81 09/23/19 18:32 74 12 24 09/23/19 17:03 76 17 24 09/23/19 16:02 Mechanical Ventilator 09/23/19 16:00 75 09/23/19 16:00 24 09/23/19 16:00 98.4 72 24 110/51 (70) 97 09/23/19 15:14 76 15 24 09/23/19 13:06 72 13 24 09/23/19 12:00 98.2 76 12 120/56 (77) 96 09/23/19 12:00 71 09/23/19 12:00 24 09/23/19 12:00 Mechanical Ventilator 09/23/19 11:14 73 14 24 Intake and Output 09/23/19 09/24/19 19:00 07:00 Intake Total 1010 ml 750 ml Output Total 1 ml Balance 1009 ml 750 ml Free Water 230 ml 100 ml Tube Feeding 600 ml 550 ml Other 180 ml 100 ml Output Urine Total 1 ml Stool Total 0 ml Laboratory Tests 09/23/19 13:10: POC Whole Blood Glucose [Pending] 09/23/19 17:38: POC Whole Blood Glucose 126H 09/24/19 00:16: POC Whole Blood Glucose 172H 09/24/19 05:36: POC Whole Blood Glucose [Pending] 09/24/19 08:30: White Blood Count 15.1H, Red Blood Count 3.46L, Hemoglobin 8.8L, Hematocrit 29.4L, Mean Corpuscular Volume 85, Mean Corpuscular Hemoglobin 25.4L, Mean Corpuscular Hemoglobin Concent 29.8L, Red Cell Distribution Width 17.3H, Platelet Count 413, Mean Platelet Volume 6.2L, Neutrophils (%) (Auto) 64.0, Lymphocytes (%) (Auto) 16.0L, Monocytes (%) (Auto) 9.0, Eosinophils (%) (Auto) 10.3H, Basophils (%) (Auto) 0.8, Sodium Level 131L, Potassium Level 2.8L, Chloride Level 94L, Carbon Dioxide Level 31, Anion Gap 7, Blood Urea Nitrogen 45H, Creatinine 2.8H, Estimat Glomerular Filtration Rate 22.0, Glucose Level 190H, Calcium Level 8.8, Total Bilirubin 0.6, Aspartate Amino Transf (AST/SGOT) 39H, Alanine Aminotransferase (ALT/SGPT) 30, Alkaline Phosphatase 156H, Total Protein 8.8H, Albumin 2.0L, Globulin 6.8, Albumin/Globulin Ratio 0.3L Height (Feet): 5 Height (Inches): 10.00 Weight (Pounds): 123 Objective CV RR Trach clean Lungs CTA New Perma Cath RIJ. Old Femoral [place] still in Rt. Groin! Abd SNT. BS + E No CCE Erica Pichardo MD Sep 24, 2019 10:27
--- NOTE | 2019-09-24 10:30 | NUR ---
NURSE NOTES: Dr. Brito at the bedside assessed the patient. Notified episode of hypotension and persistent hypokalemia even with HD on 09/23/2019. Notified Dr. Brito that Albumin bolus x1 given and KCL 40mEq once GT given per Dr. Ramirez's order. Dr. Brito ordered continuous IVF with KCL. Will administer as ordered. Will closely monitor the patient. Will continue plan of care.
--- NOTE | 2019-09-24 11:10 | Surgery Progress Note ---
Surgery Progress Note Subjective Procedure Performed Right femoral temporary hemodialysis catheter removal Additional Comments no acute events comfortable leukocytosis persistent Objective Last 24 Hour Vital Signs Date Time Temp Pulse Resp B/P (MAP) Pulse Ox O2 Delivery O2 Flow Rate FiO2 09/24/19 09:00 82 98/45 09/24/19 09:00 98/45 09/24/19 08:22 83 09/24/19 07:04 84 23 24 09/24/19 04:33 85 16 24 09/24/19 04:00 24 09/24/19 04:00 Mechanical Ventilator 09/24/19 04:00 97.9 79 17 102/41 (61) 100 09/24/19 03:34 79 09/24/19 03:07 79 16 24 09/24/19 00:50 81 16 24 09/24/19 00:00 Mechanical Ventilator 09/24/19 00:00 98.1 60 20 108/50 (69) 95 09/23/19 23:34 87 09/23/19 22:45 86 18 24 09/23/19 21:02 86 18 24 09/23/19 20:57 85 107/54 09/23/19 20:00 Mechanical Ventilator 09/23/19 20:00 24 09/23/19 20:00 98.4 83 24 107/53 (71) 97 09/23/19 19:23 81 09/23/19 18:32 74 12 24 09/23/19 17:03 76 17 24 09/23/19 16:02 Mechanical Ventilator 09/23/19 16:00 75 09/23/19 16:00 24 09/23/19 16:00 98.4 72 24 110/51 (70) 97 09/23/19 15:14 76 15 24 09/23/19 13:06 72 13 24 09/23/19 12:00 98.2 76 12 120/56 (77) 96 09/23/19 12:00 71 09/23/19 12:00 24 09/23/19 12:00 Mechanical Ventilator 09/23/19 11:14 73 14 24 I&O Intake and Output 09/23/19 09/24/19 19:00 07:00 Intake Total 1010 ml 750 ml Output Total 1 ml Balance 1009 ml 750 ml Free Water 230 ml 100 ml Tube Feeding 600 ml 550 ml Other 180 ml 100 ml Output Urine Total 1 ml Stool Total 0 ml Dressing: saturated Cardiovascular: RSR Respiratory: decreased breath sounds Abdomen: soft, non-tender, present bowel sounds Extremities: no tenderness, no cyanosis, other Laboratory Tests Test 09/23/19 13:10 09/23/19 17:38 09/24/19 00:16 09/24/19 05:36 POC Whole Blood Glucose Pending 126 MG/DL (74-106) H 172 MG/DL (74-106) H Pending Test 09/24/19 08:30 09/24/19 10:30 White Blood Count 15.1 K/UL (4.8-10.8) H Red Blood Count 3.46 M/UL (4.70-6.10) L Hemoglobin 8.8 G/DL (14.2-18.0) L Hematocrit 29.4 % (42.0-52.0) L Mean Corpuscular Volume 85 FL (80-99) Mean Corpuscular Hemoglobin 25.4 PG (27.0-31.0) L Mean Corpuscular Hemoglobin Concent 29.8 G/DL (32.0-36.0) L Red Cell Distribution Width 17.3 % (11.6-14.8) H Platelet Count 413 K/UL (150-450) Mean Platelet Volume 6.2 FL (6.5-10.1) L Neutrophils (%) (Auto) 64.0 % (45.0-75.0) Lymphocytes (%) (Auto) 16.0 % (20.0-45.0) L Monocytes (%) (Auto) 9.0 % (1.0-10.0) Eosinophils (%) (Auto) 10.3 % (0.0-3.0) H Basophils (%) (Auto) 0.8 % (0.0-2.0) Sodium Level 131 MMOL/L (136-145) L Potassium Level 2.8 MMOL/L (3.5-5.1) L Chloride Level 94 MMOL/L (98-107) L Carbon Dioxide Level 31 MMOL/L (21-32) Anion Gap 7 mmol/L (5-15) Blood Urea Nitrogen 45 mg/dL (7-18) H Creatinine 2.8 MG/DL (0.55-1.30) H Estimat Glomerular Filtration Rate 22.0 mL/min (>60) Glucose Level 190 MG/DL (74-106) H Calcium Level 8.8 MG/DL (8.5-10.1) Total Bilirubin 0.6 MG/DL (0.2-1.0) Aspartate Amino Transf (AST/SGOT) 39 U/L (15-37) H Alanine Aminotransferase (ALT/SGPT) 30 U/L (12-78) Alkaline Phosphatase 156 U/L (46-116) H Total Protein 8.8 G/DL (6.4-8.2) H Albumin 2.0 G/DL (3.4-5.0) L Globulin 6.8 g/dL Albumin/Globulin Ratio 0.3 (1.0-2.7) L POC Whole Blood Glucose Pending Plan Problems: (1) Anemia (2) Hyponatremia (3) Leukocytosis Assessment & Plan: Tracheostomy, left chest pacemaker are again demonstrated. There is bilateral interstitial and airspace disease and bilateral pleural fluid again demonstrated. This appears more severe than on the prior study. Bilateral interstitial and airspace infiltrates versus edema. Bilateral pleural effusions Leukocytosis, anemia, tachycardia, abnormal labs. Wound evaluated and likely etiology of patient's sepsis. Leukocytosis etiology work-up antibiotics per infectious disease Appreciate nephrology input transfuse with dialysis We will follow with recommendations thank you allowing participation's care plan HD access temp HD discussed with medical teams line okay HD as per renal persistent leukocytosis flow cyto noted improving trending down right fem line removed (4) Ventilator dependent (5) Right lower lobe pneumonia (6) Hypokalemia (7) Hyperkalemia (8) Anasarca (9) Decubitus skin ulcer Assessment & Plan: pt presented on admission with generalized edemae.Skin assessed under tracheostomy and no areas of concerns noted. GT Insertion is marginally erythematous with small amt slough at stoma. Unstageable Pressure Injury R elbow. Base of wound is 100% yellow slough, Borders are erythematous. Wound oozing small amt haemopurulent exudate.Darker skin tone without elevation in skin temp or erythema periwound. Pt's penis and scrotum are grossly edematous and enlarged and weeping serous exudate from numerous sites both from penis and scrotum. Two small open wounds noted at base of at base of shaft of penis ,and contreras aspect of scrotum. Both wounds oozing large amt sanguineous and serosanguineous exudate. Multiple open wounds with Biofilm at base of each wounds noted to contreras/lateral,inferior and posterior aspects of scrotum. These wounds noted to be oozing moderate amts of serosanguineous exudate. Hypertrophic scar with scattered areas of hyperpigmentation noted to Sacrum. DTPI noted to L Buttocks (L)7cm x (W)9cm. Base of wound is purple and indurated.Darker skin tone without erythema, induration or fluctuance R and L ischial tuberosities. Both heels are boggy with non-blanchable erythema. Tx.Plan: Cleanse wound R elbow with Saline. Apply TheraHoney, Apply Moisture Barrier Paste periwound. Cover with Optifoam drsg.Change Daily and prn. Wash GT site with soap and water.Pat dry. Apply Zinc Oxide Paste to GT site Daily. Leave Open to Air. Apply Zinc Oxide Paste to entire Scrotum, Place ABD pads to R and L lateral, and posterior aspects of scrotum TWICE daily. Apply Cavilon Skin Barrier to malleoli and both Heels. Cover each site with Optifoam drsgs. Change every 7 days and prn. Reposition at least every 2hours or as tolerated. Off-load heels with Pillows. APM/BECCA Mattress overlay. (10) Malnutrition Assessment & Plan: DAILY ESTIMATED NEEDS: Needs based on Renal, critical care, wound/ 61kg 22-30 kcals/kg 8536-8517 total kcals 1.25-2 g protein/kg 76-122 g total protein Fluid per MD, now on HD mL/kg . total fluid mLs NUTRITION DIAGNOSIS: * Swallowing difficulty R/T respiratory failure, dysphagia as evidenced by trach/vent dep, PEG dep * Increased kcal/prot needs R/T wound healing as evidenced by admitted w/ multiple pressure injuries including full thickness wounds at junction of Shaft of penis, dorsal scrotum, R elbow, and DTPI @ L buttocks. CURRENT TF:Vital AF 1.2 @ 50ml/hr x 24 hrs + Garo BID ENTERAL NUTRITION RECOMMENDATIONS: Vital AF 1.2 @ 50ml/hr x 24 hrs to provide 1200ml, 1440kcal,9 0g prot, 973ml free water * Maintain elemental TF of Vital AF 1.2 w/ continued diarrhea -> monitor lytes and renal fxn closely, monitor need for renal TF -> TF @ goal will provide 1642mg K and 2025mg Phos * HOB over 30 degrees/ water flush per MD * Continue Garo BID via PEG (11) Uremia (12) CKD (chronic kidney disease) stage 5, GFR less than 15 ml/min (13) Colon distention Assessment & Plan: discussed with GI likely functional as having lots of loose bm rectal tube kub f/u s/p colonoscopy - findings reviewed with GI Marked distention of the sigmoid colon. 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 No evidence of bowel wall thickening or pneumatosis 12 mm focus of contrast enhancement in the right pectineus muscle. While nonspecific in appearance, appearance raises concern for a possible pseudoaneurysm. Ill- defined thickening of the pectus medius muscle could indicate some intramuscular hemorrhage. The above findings were phoned to Dr. Urias at the time of interpretation Large bilateral pleural effusions Hazy pulmonary parenchymal opacities as well as dense consolidative opacities most likely represent pulmonary edema, but could represent pneumonia Evidence of anasarca elsewhere, with generalized edema of the subcutaneous fat Bladder wall thickening, raises concern for cystitis. Avalos catheter in place Colonic diverticulosis. No evidence of diverticulitis. Tracheostomy Pacemaker Gastrostomy Jonathan Urias Sep 24, 2019 11:10
[2019-09-24 12:00] VITALS: BP 128/59
--- NOTE | 2019-09-24 12:00 | NUR ---
NURSE NOTES: Vital signs retaken. The patient's vital signs got improved with mediation therapy. BS of 184 noted and Novolog administered per protocol. Tolerating vent setting and TF well. Will closely monitor the patient. Will continue plan of care.
--- NOTE | 2019-09-24 13:37 | Infectious Diseases Prog Note ---
Assessment/Plan Assessment/Plan A: 1. Pneumonia treated COVID19 X2 : negative 2. Renal failure,Stage V 3. Leukocytosis 4. Respiratory failure, Ventilator dependent 5. Anemia 6. Anasarca 7. 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 Klebsiella catheter infection s/p removal 10. Diarrhea, C. difficile negative PLAN: 1. Observe off of antibiotic Subjective ROS Limited/Unobtainable: Yes Allergies: Coded Allergies: No Known Allergies (Unverified , 06/10/19) Objective Last 24 Hour Vital Signs Date Time Temp Pulse Resp B/P (MAP) Pulse Ox O2 Delivery O2 Flow Rate FiO2 09/24/19 11:21 80 12 24 09/24/19 09:08 82 12 24 09/24/19 09:00 82 98/45 09/24/19 09:00 98/45 09/24/19 08:22 83 09/24/19 07:04 84 23 24 09/24/19 04:33 85 16 24 09/24/19 04:00 24 09/24/19 04:00 Mechanical Ventilator 09/24/19 04:00 97.9 79 17 102/41 (61) 100 09/24/19 03:34 79 09/24/19 03:07 79 16 24 09/24/19 00:50 81 16 24 09/24/19 00:00 Mechanical Ventilator 09/24/19 00:00 98.1 60 20 108/50 (69) 95 09/23/19 23:34 87 09/23/19 22:45 86 18 24 09/23/19 21:02 86 18 24 09/23/19 20:57 85 107/54 09/23/19 20:00 Mechanical Ventilator 09/23/19 20:00 24 09/23/19 20:00 98.4 83 24 107/53 (71) 97 09/23/19 19:23 81 09/23/19 18:32 74 12 24 09/23/19 17:03 76 17 24 09/23/19 16:02 Mechanical Ventilator 09/23/19 16:00 75 09/23/19 16:00 24 09/23/19 16:00 98.4 72 24 110/51 (70) 97 09/23/19 15:14 76 15 24 Height (Feet): 5 Height (Inches): 10.00 Weight (Pounds): 123 General Appearance: no acute distress HEENT: mucous membranes moist, status post trach Respiratory/Chest: decreased breath sounds, other - on ventilator Cardiovascular: normal rate Abdomen: soft, non tender, other - GT feeding Extremities: no edema Neurologic/Psychiatric: unresponsiveness, aphasia Microbiology Date/Time Source Procedure Growth Status 09/23/19 22:00 Stool Clostridium difficile Toxin Assay - Final Complete Laboratory Tests Test 09/23/19 17:38 09/24/19 00:16 09/24/19 05:36 09/24/19 08:30 POC Whole Blood Glucose 126 MG/DL (74-106) H 172 MG/DL (74-106) H Pending White Blood Count 15.1 K/UL (4.8-10.8) H Red Blood Count 3.46 M/UL (4.70-6.10) L Hemoglobin 8.8 G/DL (14.2-18.0) L Hematocrit 29.4 % (42.0-52.0) L Mean Corpuscular Volume 85 FL (80-99) Mean Corpuscular Hemoglobin 25.4 PG (27.0-31.0) L Mean Corpuscular Hemoglobin Concent 29.8 G/DL (32.0-36.0) L Red Cell Distribution Width 17.3 % (11.6-14.8) H Platelet Count 413 K/UL (150-450) Mean Platelet Volume 6.2 FL (6.5-10.1) L Neutrophils (%) (Auto) 64.0 % (45.0-75.0) Lymphocytes (%) (Auto) 16.0 % (20.0-45.0) L Monocytes (%) (Auto) 9.0 % (1.0-10.0) Eosinophils (%) (Auto) 10.3 % (0.0-3.0) H Basophils (%) (Auto) 0.8 % (0.0-2.0) Sodium Level 131 MMOL/L (136-145) L Potassium Level 2.8 MMOL/L (3.5-5.1) L Chloride Level 94 MMOL/L (98-107) L Carbon Dioxide Level 31 MMOL/L (21-32) Anion Gap 7 mmol/L (5-15) Blood Urea Nitrogen 45 mg/dL (7-18) H Creatinine 2.8 MG/DL (0.55-1.30) H Estimat Glomerular Filtration Rate 22.0 mL/min (>60) Glucose Level 190 MG/DL (74-106) H Calcium Level 8.8 MG/DL (8.5-10.1) Total Bilirubin 0.6 MG/DL (0.2-1.0) Aspartate Amino Transf (AST/SGOT) 39 U/L (15-37) H Alanine Aminotransferase (ALT/SGPT) 30 U/L (12-78) Alkaline Phosphatase 156 U/L (46-116) H Total Protein 8.8 G/DL (6.4-8.2) H Albumin 2.0 G/DL (3.4-5.0) L Globulin 6.8 g/dL Albumin/Globulin Ratio 0.3 (1.0-2.7) L Test 09/24/19 10:30 09/24/19 12:35 POC Whole Blood Glucose Pending Pending Current Medications Medications (Trade) Dose Ordered Sig/Leonel Route PRN Reason Start Time Stop Time Status Last Admin Dose Admin Acetaminophen (Tylenol) 650 mg Q4H PRN GT Mild Pain (Pain Scale 1-3) 09/21/19 12:45 10/21/19 12:44 09/21/19 16:31 Atorvastatin Calcium (Lipitor) 40 mg BEDTIME GT 08/09/19 21:00 11/07/19 20:59 09/22/19 20:05 Chlorhexidine Gluconate (Felipa-Hex 2%) 1 applic DAILY@2000 TOPIC 09/12/19 20:00 12/11/19 19:59 09/23/19 20:56 Clonidine HCl (Catapres Tab) 0.1 mg Q4H PRN GT For High Blood Pressure 09/09/19 12:30 12/08/19 05:29 09/15/19 04:10 Dextrose (Dextrose 50%) 25 ml Q30M PRN IV Hypoglycemia 08/09/19 07:30 11/07/19 07:29 Dextrose (Dextrose 50%) 50 ml Q30M PRN IV Hypoglycemia 08/09/19 07:30 11/07/19 07:29 Diphenoxylate HCl/ Atropine (Lomotil) 2.5 mg QID PRN ORAL Diarrhea 09/24/19 08:45 10/24/19 08:44 Epoetin Andreas (Epoetin Andreas(ESRD on dialysis)) 10,000 unit WED-WED-WED SUBQ 09/20/19 21:00 12/19/19 20:59 09/22/19 20:22 Famotidine (Pepcid) 20 mg DAILY GT 08/30/19 09:00 11/28/19 08:59 09/24/19 09:58 Insulin Aspart (NovoLOG) Q6HR SUBQ 08/10/19 00:00 11/07/19 11:29 09/24/19 12:39 Lactobacillus Acidophilus (Culturelle) 1 tab TWICE A DAY GT 09/14/19 18:00 12/13/19 17:59 09/24/19 09:57 Loperamide HCl (Imodium) 2 mg BID GT 09/24/19 09:00 10/24/19 08:59 09/24/19 09:57 Metoprolol Tartrate (Lopressor) 200 mg Q12HR GT 08/09/19 09:00 11/07/19 08:59 09/22/19 20:05 Minoxidil (Loniten) 5 mg DAILY GT 08/09/19 09:00 11/07/19 08:59 09/22/19 08:13 Zinc Oxide (Zinc Oxide) 1 applic BID TOPIC 08/10/19 18:00 11/08/19 17:59 09/24/19 09:59 Real De Leon MD Sep 24, 2019 13:37
--- NOTE | 2019-09-24 14:00 | NUR ---
NURSE NOTES: The patient is resting comfortably without acute distress or shortness of breath. Stable vital signs noted with MAP>65. Will closely monitor the patient. Will continue plan of care.
--- NOTE | 2019-09-24 14:14 | General Progress Note ---
Assessment/Plan Assessment/Plan: Assessment - colonoscopy negative to hepatic flexure - diarrhea - presumed TF related - abnormal LFT - Anemia - leukocytosis - stool OB (+) - EGD --> gastritis - Renal failure - Anasarca - resp failure, trach - dysphagia, GT - encephalopathy, contracted - poor px Recommendations - Continue TF - will change to elemental formula - BID imodium - Elevate HOB - f/u labs - PPI - abx - supportive care Subjective Allergies: Coded Allergies: No Known Allergies (Unverified , 06/10/19) Subjective Above noted d/w RN tolerating TF But excessive diarrhea imodium started Objective Last 24 Hour Vital Signs Date Time Temp Pulse Resp B/P (MAP) Pulse Ox O2 Delivery O2 Flow Rate FiO2 09/24/19 11:21 80 12 24 09/24/19 09:08 82 12 24 09/24/19 09:00 82 98/45 09/24/19 09:00 98/45 09/24/19 08:22 83 09/24/19 07:04 84 23 24 09/24/19 04:33 85 16 24 09/24/19 04:00 24 09/24/19 04:00 Mechanical Ventilator 09/24/19 04:00 97.9 79 17 102/41 (61) 100 09/24/19 03:34 79 09/24/19 03:07 79 16 24 09/24/19 00:50 81 16 24 09/24/19 00:00 Mechanical Ventilator 09/24/19 00:00 98.1 60 20 108/50 (69) 95 09/23/19 23:34 87 09/23/19 22:45 86 18 24 09/23/19 21:02 86 18 24 09/23/19 20:57 85 107/54 09/23/19 20:00 Mechanical Ventilator 09/23/19 20:00 24 09/23/19 20:00 98.4 83 24 107/53 (71) 97 09/23/19 19:23 81 09/23/19 18:32 74 12 24 09/23/19 17:03 76 17 24 09/23/19 16:02 Mechanical Ventilator 09/23/19 16:00 75 09/23/19 16:00 24 09/23/19 16:00 98.4 72 24 110/51 (70) 97 8/15/20 15:14 76 15 24 Intake and Output 09/23/19 09/24/19 19:00 07:00 Intake Total 1010 ml 750 ml Output Total 1 ml Balance 1009 ml 750 ml Free Water 230 ml 100 ml Tube Feeding 600 ml 550 ml Other 180 ml 100 ml Output Urine Total 1 ml Stool Total 0 ml Laboratory Tests 09/23/19 17:38: POC Whole Blood Glucose 126H 09/24/19 00:16: POC Whole Blood Glucose 172H 09/24/19 05:36: POC Whole Blood Glucose [Pending] 09/24/19 08:30: White Blood Count 15.1H, Red Blood Count 3.46L, Hemoglobin 8.8L, Hematocrit 29.4L, Mean Corpuscular Volume 85, Mean Corpuscular Hemoglobin 25.4L, Mean Corpuscular Hemoglobin Concent 29.8L, Red Cell Distribution Width 17.3H, Platelet Count 413, Mean Platelet Volume 6.2L, Neutrophils (%) (Auto) 64.0, Lymphocytes (%) (Auto) 16.0L, Monocytes (%) (Auto) 9.0, Eosinophils (%) (Auto) 10.3H, Basophils (%) (Auto) 0.8, Sodium Level 131L, Potassium Level 2.8L, Chloride Level 94L, Carbon Dioxide Level 31, Anion Gap 7, Blood Urea Nitrogen 45H, Creatinine 2.8H, Estimat Glomerular Filtration Rate 22.0, Glucose Level 190H, Calcium Level 8.8, Total Bilirubin 0.6, Aspartate Amino Transf (AST/SGOT) 39H, Alanine Aminotransferase (ALT/SGPT) 30, Alkaline Phosphatase 156H, Total Protein 8.8H, Albumin 2.0L, Globulin 6.8, Albumin/Globulin Ratio 0.3L 09/24/19 10:30: POC Whole Blood Glucose [Pending] 09/24/19 12:35: POC Whole Blood Glucose [Pending] Height (Feet): 5 Height (Inches): 10.00 Weight (Pounds): 123 Objective Debilitated AA man NCAT (+) trach coarse BS RR abd distended, anasarca, (+) GT ext (+) edema contracted Ronny Mustafa MD Sep 24, 2019 14:14
--- NOTE | 2019-09-24 14:17 | NUR ---
CASE MANAGEMENT:REVIEW SI;PNA. ACUTE RENAL FAILURE. ANASARCA. 98.1 85 23 98/45 95% TRACH/VENT FIO2 24% WBC 15.1 H/H 8.8/29.4 NA 131 K+ 2.8 CL 94 BUN 45 CR 2.8 BG 190 AST 39 ALK PHOS 156 ALB 2.0 IS;KCL OV K-DUR GT IMODIUM GT BID CULTURELLE GT BID PEPCID GT QD LOPRESSOR GT Q12 LONITEN GT QD KEREN STATUS PLAN; DC TO [facility] PENDING [facility]
--- NOTE | 2019-09-24 14:25 | NUR ---
INSURANCE REVIEW AND PROGRESS NOTES FAXED TO [facility] REF# [id number] RUSSELLM:HARPER P:[phone] F:[phone]
[2019-09-24 16:00] VITALS: BP 129/63
--- NOTE | 2019-09-24 16:00 | NUR ---
NURSE NOTES: Bed bath given to the patient. Tolerated well. Tolerating tube feeding and vent setting well. Stable vital signs noted. Will closely monitor the patient. Will continue plan of care.
--- NOTE | 2019-09-24 18:00 | NUR ---
NURSE NOTES: Medications administered per order. BS of 186 noted and Novolog administered per protocol. Will closely monitor the patient. Will continue plan of care.
--- NOTE | 2019-09-24 19:10 | NUR ---
NURSE HAND-OFF REPORT: Important Events on Shift: Hypotension, Hyponatremia, Hypokalemia, Diarrhea Patient Status: Stable, Full code Diet: GTF Vital AF @ 50mL/hr Pending Orders: N Pending Results/Labs: N Pending MD notification: N Latest Vital Signs: Temperature 98.0 , Pulse 73 , B/P 129 /63 , Respiratory Rate 14 , O2 SAT 100 , Mechanical Ventilator, O2 Flow Rate 15.0 . Vital Sign Comment: Stable EKG Rhythm: V-Paced Rhythm change?: N MD Notified?: N - MD Response: Latest Delacruz Fall Score: 50 Fall Risk: High Risk Safety Measures: Call light Within Reach, Bed Alarm Zone 2, Side Rails Side Rails x3, Bed position Low and Locked. Fall Precautions: Yellow Socks Yellow Gown Door Sign Patient Fall Education Report given to TAMICA Moran. The patient is stable at this time. Endorsed plan of care.
--- NOTE | 2019-09-24 19:11 | NUR ---
NURSE NOTES: Received report from TAMICA Yu. Upon assessment pt is obtunded, responsive to tactile stimuli. Contracted and unable to make needs known. Vent settings observed at P8, A/C 18, Vt 550, FiO2 24% and P5 saturating at 99%. Made aware of episode of hypotension. Currently pt 101/57 89 bpm 99% O2 and 98.2. Right permacath noted. Rectal tube noted. G-tube site intact with 10 mL residual running Vital AF. No respiratory and cardiac distress noted. Bed in lowest and locked position. Bed alarm on and call light within reach. Will continue monitoring.
[2019-09-24 20:00] VITALS: BP 124/57
[2019-09-24] MEDS: Dyna-Hex 2% Top Sol 2oz TOPIC SCH (20:42)
[2019-09-24] MEDS: Atorvastatin 20mg tab GT SCH (20:42)
[2019-09-25] VITALS: BP 115/74
--- NOTE | 2019-09-25 | NUR ---
"NURSE NOTES: Pt in stable condition with no episode of hypotension or fever. 124/64 | 88 bpm | 98.9 | 98% O2 saturation."
[2019-09-25] MEDS: NovoLOG Insulin Flexpen SUBQ SCH ×5 (00:06→23:10)
[2019-09-25 04:00] VITALS: BP 130/62
--- NOTE | 2019-09-25 05:30 | NUR ---
NURSE NOTES: Running fever of 100.4; cooling measures initiated and PRN tylenol given via g-tube.
[2019-09-25] MEDS: Acetaminophen 650mg/20.3ml GT PRN (05:32)
--- NOTE | 2019-09-25 06:00 | NUR ---
NURSE NOTES: Recheck temperature: 100.0 Axil. Cooling measures initiated and will continue to monitor.
[2019-09-25 06:47] LABS: BASOPHILS % (AUTO) 0.9 % (0.0-2.0); EOSINOPHILS % (AUTO) 14.1 % (0.0-3.0); HEMATOCRIT 30.2 % (42.0-52.0); LYMPHOCYTES % (AUTO) 17.9 % (20.0-45.0); MEAN CORPUSCULAR VOLUME 85 FL (80-99); MONOCYTES % (AUTO) 7.7 % (1.0-10.0); NEUTROPHILS % (AUTO) 59.5 % (45.0-75.0); PLATELET COUNT 457 K/UL (150-450); RED BLOOD COUNT 3.56 M/UL (4.70-6.10); RED CELL DISTRIBUTION WIDTH 17.7 % (11.6-14.8); WHITE BLOOD COUNT 15.2 K/UL (4.8-10.8)
--- NOTE | 2019-09-25 06:50 | NUR ---
NURSE NOTES: Left message for ID in regards to elevated temp.
--- NOTE | 2019-09-25 06:50 | NUR ---
NURSE NOTES: Dr. Campos at bedside. Made aware of new orders. Pt temperature decreased to 99.1.
--- NOTE | 2019-09-25 07:08 | Hematology/Onc Progress Note ---
Assessment/Plan Assessment/Plan Assessment/recs # Leukocytosis - with multiple infections, VRE UTI, flow is negative --> wbc trend 33-->28-->25->23->22->23->24->17.3-->17-->14->16-->15.6-->14-->14- >13->19->18->17->22->22->19->17-->18->20-->15 --> on abx, linezolid and zosyn--> zosyn-->gent-->off --> + blood cultures with coag neg staph likely contaminated --> as per id recs --> has ordered a flow cytometry (with pathology) --> does show increased nK cell activity --> JOURDAN 2 and bcr-abl labs ordered (these are send outs) --> plt 585-->613-->649-->669->663 # Anemia due to chronic disease/kidney disease as well, gi bleed + occult + noted --> was on iron in the past, now on hold --> has been started on Epogen sq --> as per renal care --> egd done and shows gastritis --> on ppi --> egd showed gastritis, colo recently done --> hgb 9-->8.7-->7.6-->9.2-->8.9-->9.2->9.3-->8.8->9.9-->9.2-->8.1-->8.7-->7.9- ->8.6-->8.9-->8.2->9 # Respiratory failure --> per pulm, s/p trach --> COVID 19 test negative x 2 # Hyperlipidemia --> statin po # Dysphagia s/p gtube with nepro --> per gi # ESRD with r fem julito --> hd as per renal # Dvt ppx scds Appreciate consultation and matt Rn Subjective HEENT: Denies: no symptoms, eye pain, blurred vision, tearing, double vision, ear pain, ear discharge, nose pain, nose congestion, throat pain, throat swelling, mouth pain, mouth swelling, other Cardiovascular: Denies: no symptoms, chest pain, edema, irregular heart rate, lightheadedness, palpitations, syncope, other Respiratory: Denies: no symptoms, cough, shortness of breath, SOB with excertion, SOB at rest, sputum, wheezing, other Gastrointestinal/Abdominal: Denies: no symptoms, abdomen distended, abdominal pain, black stools, tarry stools, blood in stool, constipated, diarrhea, difficulty swallowing, nausea, poor appetite, poor fluid intake, rectal bleeding , vomiting, other Endocrine: Denies: no symptoms, excessive sweating, flushing, intolerance to cold, intolerance to heat, increased hunger, increased thirst, increased urine, unexplained weight gain, unexplained weight loss, other Hematologic/Lymphatic: Denies: no symptoms, anemia, easy bleeding, easy bruising, adenopathy, other Allergies: Coded Allergies: No Known Allergies (Unverified , 06/10/19) Subjective 08/15 meds noted, no bleeding, hgb 8.8, wbc 28, path flow pending 08/16 flow pending dw pathologist, results pending, wbc 25, hgb 9 08/17 labs reviewed, meds reviewed, meds noted, no night sweats 08/19 remains obtunded, on vent/trach, no bleeding wbc 21.7 08/20 labs have been reviewed, no bleeding, wbc still elev, path reviewed 08/21 labs are noted, no bleeding, on vent, wbc better 08/22 labs noted, no bleeding, meds reviewed, wbc 24 hgb 7.6 08/23 vent, off abx, c diff negative, h/h stable 08/24 labs reviewed, on abx, wbc 17, hgb 8.9, no hemolysis 08/26 reviewed flow and is negative for leukemia, matt rn 08/27 meds reviewed, no night sweats, matt rn, no major bleeding 08/28 meds reivewed, labs noted 08/29 wbc is stable, approx 15, hgb 8.8, no hemolysis 08/30 labs are noted, is for colo today, hgb 9.9 08/31 right fem julito in place, unchanged, hgb 9.2, gi aware 09/01 labs noted, hgb 8.8, plt >600, no bleeding 09/02 labs noted, no bleeding, with elev wbc still, no new changes 09/03 meds are noted, no bleeding, labs reviewed hgb 8.6 09/04 no major events, hd as per renal, abx, no bleeding hgb low 09/05 labs are noted, no bleeding, meds have been reviewed 09/06 no new labs no hemolysis, cbc is noted, no bleeding 09/07 meds reviewed, no bleeding, matt rn, permacat functioning well 09/09 meds reviewed, wbc still elevated, as per id recs, cbc noted 09/10 is obtunded, with gutbe in place, labs reviewed 09/11 obtunded, as per id, observe now off abx, labs noted, wbc 19 09/12 cbc is pending, remains on epogen, also off abx 09/13 labs reviewed, no bleeding, elev wbc, no night sweats 09/14 meds noted, no bleeding, wbc 19, hgb 9.5, no night sweats 09/21 obtunded, remains on vent, labs noted, no bleeding, hgb 8.9 09/22 obtunded, labs noted, no bleeding, on vent, unchanged 09/23 unchanges, wbc remains elevated 20k, on abx, on vent 09/24 labs have been reviewed, no bleeding, wbc 15, may need abx Objective Objective Current Medications Medications (Trade) Dose Ordered Sig/Leonel Route PRN Reason Start Time Stop Time Status Last Admin Dose Admin Acetaminophen (Tylenol) 650 mg Q4H PRN GT Mild Pain (Pain Scale 1-3) 09/21/19 12:45 10/21/19 12:44 09/25/19 05:32 Atorvastatin Calcium (Lipitor) 40 mg BEDTIME GT 08/09/19 21:00 11/07/19 20:59 09/24/19 20:42 Chlorhexidine Gluconate (Fleipa-Hex 2%) 1 applic DAILY@1999 TOPIC 09/12/19 20:00 12/11/19 19:59 09/24/19 20:42 Clonidine HCl (Catapres Tab) 0.1 mg Q4H PRN GT For High Blood Pressure 09/09/19 12:30 12/08/19 05:29 09/15/19 04:10 Dextrose (Dextrose 50%) 25 ml Q30M PRN IV Hypoglycemia 08/09/19 07:30 11/07/19 07:29 Dextrose (Dextrose 50%) 50 ml Q30M PRN IV Hypoglycemia 08/09/19 07:30 11/07/19 07:29 Diphenoxylate HCl/ Atropine (Lomotil) 2.5 mg QID PRN ORAL Diarrhea 09/24/19 08:45 10/24/19 08:44 Epoetin Andreas (Epoetin Andreas(ESRD on dialysis)) 10,000 unit SUBQ 09/20/19 21:00 12/19/19 20:59 09/22/19 20:22 Famotidine (Pepcid) 20 mg DAILY GT 08/30/19 09:00 11/28/19 08:59 09/24/19 09:58 Insulin Aspart (NovoLOG) Q6HR SUBQ 08/10/19 00:00 11/07/19 11:29 09/25/19 05:30 Lactobacillus Acidophilus (Culturelle) 1 tab TWICE A DAY GT 09/14/19 18:00 12/13/19 17:59 09/24/19 17:31 Loperamide HCl (Imodium) 2 mg BID GT 09/24/19 09:00 10/24/19 08:59 09/24/19 17:31 Metoprolol Tartrate (Lopressor) 200 mg Q12HR GT 08/09/19 09:00 11/07/19 08:59 09/22/19 20:05 Minoxidil (Loniten) 5 mg DAILY GT 08/09/19 09:00 11/07/19 08:59 09/22/19 08:13 Zinc Oxide (Zinc Oxide) 1 applic BID TOPIC 08/10/19 18:00 11/08/19 17:59 09/24/19 17:34 Last 24 Hour Vital Signs Date Time Temp Pulse Resp B/P (MAP) Pulse Ox O2 Delivery O2 Flow Rate FiO2 09/25/19 07:00 99.1 09/25/19 06:02 100.0 09/25/19 06:00 100.0 09/25/19 05:30 100.4 09/25/19 05:08 81 12 24 09/25/19 04:00 24 09/25/19 04:00 99.3 87 18 130/62 (84) 100 09/25/19 04:00 Mechanical Ventilator 09/25/19 03:42 83 09/25/19 02:30 83 16 24 09/25/19 01:04 80 12 24 09/25/19 00:00 Mechanical Ventilator 09/25/19 00:00 97.9 80 18 115/74 (88) 100 09/24/19 23:33 79 09/24/19 22:50 72 12 24 09/24/19 21:07 79 12 24 09/24/19 20:42 90 101/56 09/24/19 20:00 Mechanical Ventilator 09/24/19 20:00 98.0 72 16 124/57 (79) 100 09/24/19 20:00 24 09/24/19 19:22 72 09/24/19 19:12 73 14 24 09/24/19 17:07 74 12 24 09/24/19 16:00 98.0 75 12 129/63 (85) 100 09/24/19 16:00 76 09/24/19 16:00 Mechanical Ventilator 09/24/19 16:00 24 09/24/19 14:44 74 12 24 09/24/19 13:28 81 13 24 09/24/19 12:00 Mechanical Ventilator 09/24/19 12:00 80 09/24/19 12:00 24 09/24/19 12:00 98.9 80 12 128/59 (82) 100 09/24/19 11:21 80 12 24 09/24/19 09:08 82 12 24 09/24/19 09:00 82 98/45 09/24/19 09:00 98/45 09/24/19 08:22 83 09/24/19 08:00 98.2 83 12 104/44 (64) 100 09/24/19 08:00 24 09/24/19 08:00 Mechanical Ventilator 09/24/19 07:04 84 23 24 09/24/19 04:33 85 16 24 09/24/19 04:00 24 09/24/19 04:00 Mechanical Ventilator 09/24/19 04:00 97.9 79 17 102/41 (61) 100 09/24/19 03:34 79 09/24/19 03:07 79 16 24 09/24/19 00:50 81 16 24 09/24/19 00:00 Mechanical Ventilator 09/24/19 00:00 98.1 60 20 108/50 (69) 95 09/23/19 23:34 87 09/23/19 22:45 86 18 24 09/23/19 21:02 86 18 24 09/23/19 20:57 85 107/54 09/23/19 20:00 Mechanical Ventilator 09/23/19 20:00 24 09/23/19 20:00 98.4 83 24 107/53 (71) 97 09/23/19 19:23 81 09/23/19 18:32 74 12 24 09/23/19 17:03 76 17 24 09/23/19 16:02 Mechanical Ventilator 09/23/19 16:00 75 09/23/19 16:00 24 09/23/19 16:00 98.4 72 24 110/51 (70) 97 09/23/19 15:14 76 15 24 09/23/19 13:06 72 13 24 09/23/19 12:00 98.2 76 12 120/56 (77) 96 09/23/19 12:00 71 09/23/19 12:00 24 09/23/19 12:00 Mechanical Ventilator 09/23/19 11:14 73 14 24 09/23/19 09:08 75 13 24 09/23/19 09:00 74 109/49 09/23/19 09:00 109/49 09/23/19 08:00 24 09/23/19 08:00 98.2 74 14 109/49 (69) 98 09/23/19 08:00 Mechanical Ventilator 09/23/19 08:00 74 09/23/19 07:22 73 13 24 Intake and Output 09/24/19 09/25/19 19:00 07:00 Intake Total 790 ml 550 ml Output Total 50 ml Balance 740 ml 550 ml Free Water 190 ml 10 ml Tube Feeding 600 ml 500 ml Blood Product 40 ml Stool Total 50 ml Labs Test 09/22/19 11:53 09/22/19 16:33 09/22/19 23:27 09/23/19 02:50 POC Whole Blood Glucose 197 MG/DL (74-106) 126 MG/DL (74-106) 174 MG/DL (74-106) White Blood Count 20.8 K/UL (4.8-10.8) Red Blood Count 3.60 M/UL (4.70-6.10) Hemoglobin 9.2 G/DL (14.2-18.0) Hematocrit 30.5 % (42.0-52.0) Mean Corpuscular Volume 85 FL (80-99) Mean Corpuscular Hemoglobin 25.7 PG (27.0-31.0) Mean Corpuscular Hemoglobin Concent 30.3 G/DL (32.0-36.0) Red Cell Distribution Width 18.2 % (11.6-14.8) Platelet Count 402 K/UL (150-450) Mean Platelet Volume 6.7 FL (6.5-10.1) Neutrophils (%) (Auto) % (45.0-75.0) Lymphocytes (%) (Auto) % (20.0-45.0) Monocytes (%) (Auto) % (1.0-10.0) Eosinophils (%) (Auto) % (0.0-3.0) Basophils (%) (Auto) % (0.0-2.0) Differential Total Cells Counted 100 Neutrophils % (Manual) 63 % (45-75) Lymphocytes % (Manual) 19 % (20-45) Monocytes % (Manual) 2 % (1-10) Eosinophils % (Manual) 15 % (0-3) Basophils % (Manual) 1 % (0-2) Band Neutrophils 0 % (0-8) Platelet Estimate Adequate Platelet Morphology Normal Hypochromasia 2+ Anisocytosis 2+ Sodium Level 137 MMOL/L (136-145) Potassium Level 2.9 MMOL/L (3.5-5.1) Chloride Level 96 MMOL/L (98-107) Carbon Dioxide Level 27 MMOL/L (21-32) Anion Gap 14 mmol/L (5-15) Blood Urea Nitrogen 81 mg/dL (7-18) Creatinine 4.5 MG/DL (0.55-1.30) Estimat Glomerular Filtration Rate 12.7 mL/min (>60) Glucose Level 145 MG/DL (74-106) Calcium Level 9.1 MG/DL (8.5-10.1) Phosphorus Level 4.1 MG/DL (2.5-4.9) Test 09/23/19 05:36 09/23/19 13:10 09/23/19 17:38 09/24/19 00:16 POC Whole Blood Glucose 182 MG/DL (74-106) 126 MG/DL (74-106) 172 MG/DL (74-106) Test 09/24/19 05:36 09/24/19 08:30 09/24/19 10:30 09/24/19 12:35 White Blood Count 15.1 K/UL (4.8-10.8) Red Blood Count 3.46 M/UL (4.70-6.10) Hemoglobin 8.8 G/DL (14.2-18.0) Hematocrit 29.4 % (42.0-52.0) Mean Corpuscular Volume 85 FL (80-99) Mean Corpuscular Hemoglobin 25.4 PG (27.0-31.0) Mean Corpuscular Hemoglobin Concent 29.8 G/DL (32.0-36.0) Red Cell Distribution Width 17.3 % (11.6-14.8) Platelet Count 413 K/UL (150-450) Mean Platelet Volume 6.2 FL (6.5-10.1) Neutrophils (%) (Auto) 64.0 % (45.0-75.0) Lymphocytes (%) (Auto) 16.0 % (20.0-45.0) Monocytes (%) (Auto) 9.0 % (1.0-10.0) Eosinophils (%) (Auto) 10.3 % (0.0-3.0) Basophils (%) (Auto) 0.8 % (0.0-2.0) Sodium Level 131 MMOL/L (136-145) Potassium Level 2.8 MMOL/L (3.5-5.1) Chloride Level 94 MMOL/L (98-107) Carbon Dioxide Level 31 MMOL/L (21-32) Anion Gap 7 mmol/L (5-15) Blood Urea Nitrogen 45 mg/dL (7-18) Creatinine 2.8 MG/DL (0.55-1.30) Estimat Glomerular Filtration Rate 22.0 mL/min (>60) Glucose Level 190 MG/DL (74-106) Calcium Level 8.8 MG/DL (8.5-10.1) Total Bilirubin 0.6 MG/DL (0.2-1.0) Aspartate Amino Transf (AST/SGOT) 39 U/L (15-37) Alanine Aminotransferase (ALT/SGPT) 30 U/L (12-78) Alkaline Phosphatase 156 U/L (46-116) Total Protein 8.8 G/DL (6.4-8.2) Albumin 2.0 G/DL (3.4-5.0) Globulin 6.8 g/dL Albumin/Globulin Ratio 0.3 (1.0-2.7) Test 09/24/19 17:14 09/25/19 00:04 09/25/19 05:29 09/25/19 05:36 POC Whole Blood Glucose 186 MG/DL (74-106) 167 MG/DL (74-106) White Blood Count 15.2 K/UL (4.8-10.8) Red Blood Count 3.56 M/UL (4.70-6.10) Hemoglobin 9.0 G/DL (14.2-18.0) Hematocrit 30.2 % (42.0-52.0) Mean Corpuscular Volume 85 FL (80-99) Mean Corpuscular Hemoglobin 25.4 PG (27.0-31.0) Mean Corpuscular Hemoglobin Concent 30.0 G/DL (32.0-36.0) Red Cell Distribution Width 17.7 % (11.6-14.8) Platelet Count 457 K/UL (150-450) Mean Platelet Volume 6.6 FL (6.5-10.1) Neutrophils (%) (Auto) 59.5 % (45.0-75.0) Lymphocytes (%) (Auto) 17.9 % (20.0-45.0) Monocytes (%) (Auto) 7.7 % (1.0-10.0) Eosinophils (%) (Auto) 14.1 % (0.0-3.0) Basophils (%) (Auto) 0.9 % (0.0-2.0) Height (Feet): 5 Height (Inches): 10.00 Weight (Pounds): 120 Objective Physical Exam General Appearance: nad, Chronically Ill Head: normocephalic Eyes: right eye PERRL - Will not open left eye ENT: moist mucus membranes Neck: other - submandibular mass R, fairly rigid with resistance to rotation to L, tracheotomy Respiratory: decreased breath sounds, crackles, other - pacemaker, vent+ Cardiovascular: regular rate, rhythm, edema - anasarca Gastrointestinal: non tender, distended, other - G tube Genitourinary: other Musculoskeletal: other - Contractures all extremities Neurologic: sensory intact, motor weakness, responsive Psychiatric: other Skin: Decubitus/Ulcer - Stage III right elbow, stage III left elbow, stage II sacrum, stage III scrotum, warm/dry Fitz Campos MD Sep 25, 2019 07:08
--- NOTE | 2019-09-25 07:20 | NUR ---
NURSE NOTES: Received report from TAMICA Love. Pt in bed awake and open eyes and responsive to tactile stimuli. No c/o pain at this time. HOB elevated with 30 degree. Call light within easy reach. IV site in left forearm with 20G SL patent and asymptomatic. Side railx3 up for safety. G-tube running with Vital AF @50ml/hr patent asymptomatic. Pt on Vent and sating 100%. Rectal tube noted. Will continue plan of care.
[2019-09-25 07:51] LABS: ANION GAP 14 mmol/L (5-15); BLOOD UREA NITROGEN 66 mg/dL (7-18); CALCIUM 8.6 MG/DL (8.5-10.1); CARBON DIOXIDE 24 MMOL/L (21-32); CHLORIDE 95 MMOL/L (98-107); CREATININE 3.5 MG/DL (0.55-1.30); POTASSIUM 4.5 MMOL/L (3.5-5.1); SODIUM 133 MMOL/L (136-145)
--- NOTE | 2019-09-25 07:51 | NUR ---
NURSE HAND-OFF REPORT: Important Events on Shift: Fever 100.4 Patient Status: Stable Diet: Vital AF Pending Orders: N Pending Results/Labs: N Pending MD notification: Y - (I.D.) Latest Vital Signs: Temperature 99.1 , Pulse 81 , B/P 130 /62 , Respiratory Rate 12 , O2 SAT 100 , Mechanical Ventilator, O2 Flow Rate 15.0 . Vital Sign Comment: EKG Rhythm: V-Paced Rhythm change?: N MD Notified?: N - MD Response: Latest Delacruz Fall Score: 50 Fall Risk: High Risk Safety Measures: Call light Within Reach, Bed Alarm Zone 2, Side Rails Side Rails x3, Bed position Low and Locked. Fall Precautions: Yellow Socks Yellow Gown Door Sign Patient Fall Education Report given to TAMICA Madsen.
[2019-09-25 08:00] VITALS: BP 130/61
--- NOTE | 2019-09-25 08:08 | General Progress Note ---
Assessment/Plan Assessment/Plan: IMPRESSION: 1. anemia. 2. diarrhea 3. Leukocytosis. 4. hypotension 5. Acute on chronic renal failure. 6. Hyponatremia. 7. Severe protein-calorie malnutrition. 8. Significantly elevated C-reactive protein concerning for infectious etiology. 9. Tracheostomy, G-tube. 10. Ventilator dependence. 11. anasarca 12. Hematuria 13. V pacing PLAN rectal tube lomotil monitor fever curve care noted on vent/ no wean monitor labs ID follow up monitor renal function: HD prognosis poor impression, plan, and exam edited and reviewed in detail care discussed with RN Subjective ROS Limited/Unobtainable: Yes Allergies: Coded Allergies: No Known Allergies (Unverified , 06/10/19) Subjective remains ill on vent/ low grade fevers on HD vitals noted diarrhea with rectal tube Objective Last 24 Hour Vital Signs Date Time Temp Pulse Resp B/P (MAP) Pulse Ox O2 Delivery O2 Flow Rate FiO2 09/25/19 07:00 99.1 09/25/19 06:02 100.0 09/25/19 06:00 100.0 09/25/19 05:30 100.4 09/25/19 05:08 81 12 24 09/25/19 04:00 24 09/25/19 04:00 99.3 87 18 130/62 (84) 100 09/25/19 04:00 Mechanical Ventilator 09/25/19 03:42 83 09/25/19 02:30 83 16 24 09/25/19 01:04 80 12 24 09/25/19 00:00 Mechanical Ventilator 09/25/19 00:00 97.9 80 18 115/74 (88) 100 09/24/19 23:33 79 09/24/19 22:50 72 12 24 09/24/19 21:07 79 12 24 09/24/19 20:42 90 101/56 09/24/19 20:00 Mechanical Ventilator 09/24/19 20:00 98.0 72 16 124/57 (79) 100 09/24/19 20:00 24 09/24/19 19:22 72 09/24/19 19:12 73 14 24 09/24/19 17:07 74 12 24 09/24/19 16:00 98.0 75 12 129/63 (85) 100 09/24/19 16:00 76 09/24/19 16:00 Mechanical Ventilator 09/24/19 16:00 24 09/24/19 14:44 74 12 24 09/24/19 13:28 81 13 24 09/24/19 12:00 Mechanical Ventilator 09/24/19 12:00 80 09/24/19 12:00 24 09/24/19 12:00 98.9 80 12 128/59 (82) 100 09/24/19 11:21 80 12 24 09/24/19 09:08 82 12 24 09/24/19 09:00 82 98/45 09/24/19 09:00 98/45 09/24/19 08:22 83 Intake and Output 09/24/19 09/25/19 19:00 07:00 Intake Total 790 ml 650 ml Output Total 50 ml Balance 740 ml 650 ml Free Water 190 ml 10 ml Tube Feeding 600 ml 600 ml Blood Product 40 ml Stool Total 50 ml Laboratory Tests 09/24/19 08:30: White Blood Count 15.1H, Red Blood Count 3.46L, Hemoglobin 8.8L, Hematocrit 29.4L, Mean Corpuscular Volume 85, Mean Corpuscular Hemoglobin 25.4L, Mean Corpuscular Hemoglobin Concent 29.8L, Red Cell Distribution Width 17.3H, Platelet Count 413, Mean Platelet Volume 6.2L, Neutrophils (%) (Auto) 64.0, Lymphocytes (%) (Auto) 16.0L, Monocytes (%) (Auto) 9.0, Eosinophils (%) (Auto) 10.3H, Basophils (%) (Auto) 0.8, Sodium Level 131L, Potassium Level 2.8L, Chloride Level 94L, Carbon Dioxide Level 31, Anion Gap 7, Blood Urea Nitrogen 45H, Creatinine 2.8H, Estimat Glomerular Filtration Rate 22.0, Glucose Level 190H, Calcium Level 8.8, Total Bilirubin 0.6, Aspartate Amino Transf (AST/SGOT) 39H, Alanine Aminotransferase (ALT/SGPT) 30, Alkaline Phosphatase 156H, Total Protein 8.8H, Albumin 2.0L, Globulin 6.8, Albumin/Globulin Ratio 0.3L 09/24/19 10:30: POC Whole Blood Glucose [Pending] 09/24/19 12:35: POC Whole Blood Glucose [Pending] 09/24/19 17:14: POC Whole Blood Glucose 186H 09/25/19 00:04: POC Whole Blood Glucose [Pending] 09/25/19 05:29: POC Whole Blood Glucose 167H 09/25/19 05:36: White Blood Count 15.2H, Red Blood Count 3.56L, Hemoglobin 9.0L, Hematocrit 30.2L, Mean Corpuscular Volume 85, Mean Corpuscular Hemoglobin 25.4L, Mean Corpuscular Hemoglobin Concent 30.0L, Red Cell Distribution Width 17.7H, Platelet Count 457H, Mean Platelet Volume 6.6, Neutrophils (%) (Auto) 59.5, Lymphocytes (%) (Auto) 17.9L, Monocytes (%) (Auto) 7.7, Eosinophils (%) (Auto) 14.1H, Basophils (%) (Auto) 0.9, Sodium Level 133L, Potassium Level 4.5#, Chloride Level 95L, Carbon Dioxide Level 24, Anion Gap 14, Blood Urea Nitrogen 66H, Creatinine 3.5H, Estimat Glomerular Filtration Rate 17.0, Glucose Level 158H, Calcium Level 8.6 Height (Feet): 5 Height (Inches): 10.00 Weight (Pounds): 120 Objective GENERAL: Ill-appearing male, chronically debilitated. HEENT: Tracheostomy in midline. Questionable fullness in the submandibular region. LUNGS: Coarse breath sounds. reduced breath sounds CARDIAC: S1, S2. Regular rate and rhythm. ABDOMEN: Soft. G-tube. EXTREMITIES: With noted edema. NEUROLOGICAL: Poorly responsive, weak diffusely. Kain Ramirez MD Sep 25, 2019 08:08
[2019-09-25] MEDS: Metoprolol Tartrate 100mg tab GT SCH ×2 (09:00→20:19)
[2019-09-25] MEDS: Minoxidil 2.5mg tab GT SCH (09:37)
[2019-09-25] MEDS: Lactobacillus-GG tablet GT SCH ×2 (09:38→17:48)
[2019-09-25] MEDS: Zinc Oxide Oint 2oz TOPIC SCH ×2 (09:38→17:49)
--- NOTE | 2019-09-25 11:23 | Infectious Diseases Prog Note ---
Assessment/Plan Assessment/Plan antibiotics : none A 1. klebsiella catheter infection s/p rx 2. respiratory failure 3. leucocytosis increased 4. klebsiella, pseudomonas, providencia pneumonia s/p rx COVID 19 test negative x 2 5. renal failure on HD P 1. observe off antibiotics 2. will follow up cultures Subjective ROS Limited/Unobtainable: Yes Allergies: Coded Allergies: No Known Allergies (Unverified , 06/10/19) Objective Last 24 Hour Vital Signs Date Time Temp Pulse Resp B/P (MAP) Pulse Ox O2 Delivery O2 Flow Rate FiO2 09/25/19 10:40 71 12 24 09/25/19 09:37 130/61 09/25/19 09:00 73 130/61 09/25/19 08:45 73 12 24 09/25/19 08:00 24 09/25/19 08:00 Mechanical Ventilator 09/25/19 08:00 97.7 74 18 130/61 (84) 100 09/25/19 08:00 71 09/25/19 07:22 72 12 24 09/25/19 07:00 99.1 09/25/19 06:02 100.0 09/25/19 06:00 100.0 09/25/19 05:30 100.4 09/25/19 05:08 81 12 24 09/25/19 04:00 24 09/25/19 04:00 99.3 87 18 130/62 (84) 100 09/25/19 04:00 Mechanical Ventilator 09/25/19 03:42 83 09/25/19 02:30 83 16 24 09/25/19 01:04 80 12 24 09/25/19 00:00 Mechanical Ventilator 09/25/19 00:00 97.9 80 18 115/74 (88) 100 09/24/19 23:33 79 09/24/19 22:50 72 12 24 09/24/19 21:07 79 12 24 09/24/19 20:42 90 101/56 09/24/19 20:00 Mechanical Ventilator 09/24/19 20:00 98.0 72 16 124/57 (79) 100 09/24/19 20:00 24 09/24/19 19:22 72 09/24/19 19:12 73 14 24 09/24/19 17:07 74 12 24 09/24/19 16:00 98.0 75 12 129/63 (85) 100 09/24/19 16:00 76 09/24/19 16:00 Mechanical Ventilator 09/24/19 16:00 24 09/24/19 14:44 74 12 24 09/24/19 13:28 81 13 24 09/24/19 12:00 Mechanical Ventilator 09/24/19 12:00 80 09/24/19 12:00 24 09/24/19 12:00 98.9 80 12 128/59 (82) 100 Height (Feet): 5 Height (Inches): 10.00 Weight (Pounds): 120 HEENT: status post trach Respiratory/Chest: lungs clear Cardiovascular: normal rate, regular rhythm, no gallop/murmur Abdomen: soft, non tender, distended, other - GT Extremities: no edema, other - right subclavian Microbiology Date/Time Source Procedure Growth Status 09/23/19 22:00 Sputum Gram Stain - Final Resulted 09/23/19 22:00 Sputum Sputum Culture Pending Resulted 09/23/19 22:00 Stool Clostridium difficile Toxin Assay - Final Complete Laboratory Tests Test 09/24/19 12:35 09/24/19 17:14 09/25/19 00:04 09/25/19 05:29 POC Whole Blood Glucose Pending 186 MG/DL (74-106) H Pending 167 MG/DL (74-106) H Test 09/25/19 05:36 White Blood Count 15.2 K/UL (4.8-10.8) H Red Blood Count 3.56 M/UL (4.70-6.10) L Hemoglobin 9.0 G/DL (14.2-18.0) L Hematocrit 30.2 % (42.0-52.0) L Mean Corpuscular Volume 85 FL (80-99) Mean Corpuscular Hemoglobin 25.4 PG (27.0-31.0) L Mean Corpuscular Hemoglobin Concent 30.0 G/DL (32.0-36.0) L Red Cell Distribution Width 17.7 % (11.6-14.8) H Platelet Count 457 K/UL (150-450) H Mean Platelet Volume 6.6 FL (6.5-10.1) Neutrophils (%) (Auto) 59.5 % (45.0-75.0) Lymphocytes (%) (Auto) 17.9 % (20.0-45.0) L Monocytes (%) (Auto) 7.7 % (1.0-10.0) Eosinophils (%) (Auto) 14.1 % (0.0-3.0) H Basophils (%) (Auto) 0.9 % (0.0-2.0) Sodium Level 133 MMOL/L (136-145) L Potassium Level 4.5 MMOL/L (3.5-5.1) # Chloride Level 95 MMOL/L (98-107) L Carbon Dioxide Level 24 MMOL/L (21-32) Anion Gap 14 mmol/L (5-15) Blood Urea Nitrogen 66 mg/dL (7-18) H Creatinine 3.5 MG/DL (0.55-1.30) H Estimat Glomerular Filtration Rate 17.0 mL/min (>60) Glucose Level 158 MG/DL (74-106) H Calcium Level 8.6 MG/DL (8.5-10.1) Current Medications Medications (Trade) Dose Ordered Sig/Leonel Route PRN Reason Start Time Stop Time Status Last Admin Dose Admin Acetaminophen (Tylenol) 650 mg Q4H PRN GT Mild Pain (Pain Scale 1-3) 09/21/19 12:45 10/21/19 12:44 09/25/19 05:32 Atorvastatin Calcium (Lipitor) 40 mg BEDTIME GT 08/09/19 21:00 11/07/19 20:59 09/24/19 20:42 Chlorhexidine Gluconate (Felipa-Hex 2%) 1 applic DAILY@1999 TOPIC 09/12/19 20:00 12/11/19 19:59 09/24/19 20:42 Clonidine HCl (Catapres Tab) 0.1 mg Q4H PRN GT For High Blood Pressure 09/09/19 12:30 12/08/19 05:29 09/15/19 04:10 Dextrose (Dextrose 50%) 25 ml Q30M PRN IV Hypoglycemia 08/09/19 07:30 11/07/19 07:29 Dextrose (Dextrose 50%) 50 ml Q30M PRN IV Hypoglycemia 08/09/19 07:30 11/07/19 07:29 Diphenoxylate HCl/ Atropine (Lomotil) 2.5 mg QID PRN ORAL Diarrhea 09/24/19 08:45 10/24/19 08:44 Epoetin Andreas (Epoetin Andreas(ESRD on dialysis)) 10,000 unit WED-WED-WED SUBQ 09/20/19 21:00 12/19/19 20:59 09/22/19 20:22 Famotidine (Pepcid) 20 mg DAILY GT 08/30/19 09:00 11/28/19 08:59 09/25/19 09:38 Insulin Aspart (NovoLOG) Q6HR SUBQ 08/10/19 00:00 11/07/19 11:29 09/25/19 05:30 Lactobacillus Acidophilus (Culturelle) 1 tab TWICE A DAY GT 09/14/19 18:00 12/13/19 17:59 09/25/19 09:38 Loperamide HCl (Imodium) 2 mg BID GT 09/24/19 09:00 10/24/19 08:59 09/25/19 09:38 Metoprolol Tartrate (Lopressor) 200 mg Q12HR GT 08/09/19 09:00 11/07/19 08:59 09/22/19 20:05 Minoxidil (Loniten) 5 mg DAILY GT 08/09/19 09:00 11/07/19 08:59 09/25/19 09:37 Zinc Oxide (Zinc Oxide) 1 applic BID TOPIC 08/10/19 18:00 11/08/19 17:59 09/25/19 09:38 Farnaz Lyle MD Sep 25, 2019 11:23
[2019-09-25 12:00] VITALS: BP 129/53
--- NOTE | 2019-09-25 12:18 | NUR ---
RD ASSESSMENT & RECOMMENDATIONS SEE CARE ACTIVITY FOR COMPLETE ASSESSMENT DAILY ESTIMATED NEEDS: Needs based on Renal, critical care, wound/ 61kg 22-30 kcals/kg 9856-0534 total kcals 1.25-2 g protein/kg 76-122 g total protein Fluid per MD, now on HD NUTRITION DIAGNOSIS: * Swallowing difficulty R/T respiratory failure, dysphagia as evidenced by trach/vent dep, PEG dep * Increased kcal/prot needs R/T wound healing as evidenced by admitted w/ multiple pressure injuries including full thickness wounds at junction of Shaft of penis, dorsal scrotum, R elbow, and DTPI @ L buttocks. CURRENT TF:Vital AF 1.2 @ 50ml/hr x 24 hrs + Garo BID ENTERAL NUTRITION RECOMMENDATIONS: Vital AF 1.2 @ 60ml/hr x 20 hrs to provide 1200ml, 1440kcal, 90g prot, 973ml free water * Rec 20 hr run time for GI rest. Increase TF to goal of 60ml/hr for 20 hrs to meet est needs. -> monitor lytes and renal fxn closely, monitor need for renal TF -> TF @ goal will provide 1642mg K and 2025mg Phos * HOB over 30 degrees/ water flush per MD -------- Pt continues to have loose stool, rectal tube. Trial of Osmolite 1.2 w/ goal of 60ml/hr for 20 hrs (4 hrs bowel rest) to provide 1200ml, 1440 kcal, 67g pro, 984ml free H2O, -> Rec to add prosource 1 pack daily (11g pro) to better meet est pro needs. -> Monitor BG, K closely. Pt would require increased insulin coverage as TF at goal would provide 56g more carbs per day. ------- ADDITIONAL RECOMMENDATIONS: * Per SNF: HT=63" SB=726 lbs (vs EMR wt of 166lbs) -> obtain re-calibrated bedscale wt, rec daily wt monitoring * Wound healing: con't Nephrovite + Garo BID/ Vit C dosing per Nephro * Monitor renal fxn and lytes closely w/ non-renal TF -> K low, phos wnl; rec updated mag level. * Daily wts w/ drop to 118-20 lbs, rec to recalibrate for accurate CBW * Consider adding anti-diarrheal med +rectal tube-> now on imodium
--- NOTE | 2019-09-25 13:00 | NUR ---
NURSE NOTES: Dr. Mustafa ordered to flush rectal tube and put the patient on left or right side to remove the gas from intestine.
--- NOTE | 2019-09-25 13:00 | NUR ---
NURSE NOTES: Dr. Mustafa paged for recommendation of tube feeding to Osmolite 1.[address] Mustafa agrees of recommendation and ordered carried out.
--- NOTE | 2019-09-25 13:47 | Nephrology Progress Note ---
Assessment/Plan Plan Smoldering Sepsis - IV Abx Established ESRD - HD now TTS. Subjective Subjective Obtunded. Objective Objective Last 24 Hour Vital Signs Date Time Temp Pulse Resp B/P (MAP) Pulse Ox O2 Delivery O2 Flow Rate FiO2 09/25/19 12:00 98.0 75 18 129/53 (78) 99 09/25/19 12:00 24 09/25/19 10:40 71 12 24 09/25/19 09:37 130/61 09/25/19 09:00 73 130/61 09/25/19 08:45 73 12 24 09/25/19 08:00 24 09/25/19 08:00 Mechanical Ventilator 09/25/19 08:00 97.7 74 18 130/61 (84) 100 09/25/19 08:00 71 09/25/19 07:22 72 12 24 09/25/19 07:00 99.1 09/25/19 06:02 100.0 09/25/19 06:00 100.0 09/25/19 05:30 100.4 09/25/19 05:08 81 12 24 09/25/19 04:00 24 09/25/19 04:00 99.3 87 18 130/62 (84) 100 09/25/19 04:00 Mechanical Ventilator 09/25/19 03:42 83 09/25/19 02:30 83 16 24 09/25/19 01:04 80 12 24 09/25/19 00:00 Mechanical Ventilator 09/25/19 00:00 97.9 80 18 115/74 (88) 100 09/24/19 23:33 79 09/24/19 22:50 72 12 24 09/24/19 21:07 79 12 24 09/24/19 20:42 90 101/56 09/24/19 20:00 Mechanical Ventilator 09/24/19 20:00 98.0 72 16 124/57 (79) 100 09/24/19 20:00 24 09/24/19 19:22 72 09/24/19 19:12 73 14 24 09/24/19 17:07 74 12 24 09/24/19 16:00 98.0 75 12 129/63 (85) 100 09/24/19 16:00 76 09/24/19 16:00 Mechanical Ventilator 09/24/19 16:00 24 09/24/19 14:44 74 12 24 Intake and Output 09/24/19 09/25/19 19:00 07:00 Intake Total 790 ml 650 ml Output Total 50 ml Balance 740 ml 650 ml Free Water 190 ml 10 ml Tube Feeding 600 ml 600 ml Blood Product 40 ml Stool Total 50 ml Laboratory Tests 09/24/19 17:14: POC Whole Blood Glucose 186H 09/25/19 00:04: POC Whole Blood Glucose [Pending] 09/25/19 05:29: POC Whole Blood Glucose 167H 09/25/19 05:36: White Blood Count 15.2H, Red Blood Count 3.56L, Hemoglobin 9.0L, Hematocrit 30.2L, Mean Corpuscular Volume 85, Mean Corpuscular Hemoglobin 25.4L, Mean Corpuscular Hemoglobin Concent 30.0L, Red Cell Distribution Width 17.7H, Platelet Count 457H, Mean Platelet Volume 6.6, Neutrophils (%) (Auto) 59.5, Lymphocytes (%) (Auto) 17.9L, Monocytes (%) (Auto) 7.7, Eosinophils (%) (Auto) 14.1H, Basophils (%) (Auto) 0.9, Sodium Level 133L, Potassium Level 4.5#, Chloride Level 95L, Carbon Dioxide Level 24, Anion Gap 14, Blood Urea Nitrogen 66H, Creatinine 3.5H, Estimat Glomerular Filtration Rate 17.0, Glucose Level 158H, Calcium Level 8.6 09/25/19 13:00: POC Whole Blood Glucose 169H Height (Feet): 5 Height (Inches): 10.00 Weight (Pounds): 120 Objective CV RR Trach clean Lungs CTA New Perma Cath RIJ. Old Femoral Rancho still in Rt. Groin! Abd SNT. BS + E No CCE Erica Pichardo MD Sep 25, 2019 13:47
--- NOTE | 2019-09-25 14:40 | Surgery Progress Note ---
Surgery Progress Note Subjective Procedure Performed Right femoral temporary hemodialysis catheter removal Additional Comments juan cute events labs reviewed exam stable Objective Last 24 Hour Vital Signs Date Time Temp Pulse Resp B/P (MAP) Pulse Ox O2 Delivery O2 Flow Rate FiO2 09/25/19 13:30 82 15 24 09/25/19 12:00 98.0 75 18 129/53 (78) 99 09/25/19 12:00 24 09/25/19 12:00 75 09/25/19 10:40 71 12 24 09/25/19 09:37 130/61 09/25/19 09:00 73 130/61 09/25/19 08:45 73 12 24 09/25/19 08:00 24 09/25/19 08:00 Mechanical Ventilator 09/25/19 08:00 97.7 74 18 130/61 (84) 100 09/25/19 08:00 71 09/25/19 07:22 72 12 24 09/25/19 07:00 99.1 09/25/19 06:02 100.0 09/25/19 06:00 100.0 09/25/19 05:30 100.4 09/25/19 05:08 81 12 24 09/25/19 04:00 24 09/25/19 04:00 99.3 87 18 130/62 (84) 100 09/25/19 04:00 Mechanical Ventilator 09/25/19 03:42 83 09/25/19 02:30 83 16 24 09/25/19 01:04 80 12 24 09/25/19 00:00 Mechanical Ventilator 09/25/19 00:00 97.9 80 18 115/74 (88) 100 09/24/19 23:33 79 09/24/19 22:50 72 12 24 09/24/19 21:07 79 12 24 09/24/19 20:42 90 101/56 09/24/19 20:00 Mechanical Ventilator 09/24/19 20:00 98.0 72 16 124/57 (79) 100 09/24/19 20:00 24 09/24/19 19:22 72 09/24/19 19:12 73 14 24 09/24/19 17:07 74 12 24 09/24/19 16:00 98.0 75 12 129/63 (85) 100 09/24/19 16:00 76 09/24/19 16:00 Mechanical Ventilator 09/24/19 16:00 24 09/24/19 14:44 74 12 24 I&O Intake and Output 09/24/19 09/25/19 19:00 07:00 Intake Total 790 ml 650 ml Output Total 50 ml Balance 740 ml 650 ml Free Water 190 ml 10 ml Tube Feeding 600 ml 600 ml Blood Product 40 ml Stool Total 50 ml Dressing: other Wound: other Drains: other Cardiovascular: RSR Respiratory: decreased breath sounds Abdomen: soft, present bowel sounds Extremities: no cyanosis, other Laboratory Tests Test 09/24/19 17:14 09/25/19 00:04 09/25/19 05:29 09/25/19 05:36 POC Whole Blood Glucose 186 MG/DL (74-106) H Pending 167 MG/DL (74-106) H White Blood Count 15.2 K/UL (4.8-10.8) H Red Blood Count 3.56 M/UL (4.70-6.10) L Hemoglobin 9.0 G/DL (14.2-18.0) L Hematocrit 30.2 % (42.0-52.0) L Mean Corpuscular Volume 85 FL (80-99) Mean Corpuscular Hemoglobin 25.4 PG (27.0-31.0) L Mean Corpuscular Hemoglobin Concent 30.0 G/DL (32.0-36.0) L Red Cell Distribution Width 17.7 % (11.6-14.8) H Platelet Count 457 K/UL (150-450) H Mean Platelet Volume 6.6 FL (6.5-10.1) Neutrophils (%) (Auto) 59.5 % (45.0-75.0) Lymphocytes (%) (Auto) 17.9 % (20.0-45.0) L Monocytes (%) (Auto) 7.7 % (1.0-10.0) Eosinophils (%) (Auto) 14.1 % (0.0-3.0) H Basophils (%) (Auto) 0.9 % (0.0-2.0) Sodium Level 133 MMOL/L (136-145) L Potassium Level 4.5 MMOL/L (3.5-5.1) # Chloride Level 95 MMOL/L (98-107) L Carbon Dioxide Level 24 MMOL/L (21-32) Anion Gap 14 mmol/L (5-15) Blood Urea Nitrogen 66 mg/dL (7-18) H Creatinine 3.5 MG/DL (0.55-1.30) H Estimat Glomerular Filtration Rate 17.0 mL/min (>60) Glucose Level 158 MG/DL (74-106) H Calcium Level 8.6 MG/DL (8.5-10.1) Test 09/25/19 13:00 POC Whole Blood Glucose 169 MG/DL (74-106) H Plan Problems: (1) Anemia (2) Hyponatremia (3) Leukocytosis Assessment & Plan: Tracheostomy, left chest pacemaker are again demonstrated. There is bilateral interstitial and airspace disease and bilateral pleural fluid again demonstrated. This appears more severe than on the prior study. Bilateral interstitial and airspace infiltrates versus edema. Bilateral pleural effusions Leukocytosis, anemia, tachycardia, abnormal labs. Wound evaluated and likely etiology of patient's sepsis. Leukocytosis etiology work-up antibiotics per infectious disease Appreciate nephrology input transfuse with dialysis We will follow with recommendations thank you allowing participation's care plan HD access temp HD discussed with medical teams line okay HD as per renal persistent leukocytosis flow cyto noted improving trending down right fem line removed (4) Ventilator dependent (5) Right lower lobe pneumonia (6) Hypokalemia (7) Hyperkalemia (8) Anasarca (9) Decubitus skin ulcer Assessment & Plan: pt presented on admission with generalized edemae.Skin assessed under tracheostomy and no areas of concerns noted. GT Insertion is marginally erythematous with small amt slough at stoma. Unstageable Pressure Injury R elbow. Base of wound is 100% yellow slough, Borders are erythematous. Wound oozing small amt haemopurulent exudate.Darker skin tone without elevation in skin temp or erythema periwound. Pt's penis and scrotum are grossly edematous and enlarged and weeping serous exudate from numerous sites both from penis and scrotum. Two small open wounds noted at base of at base of shaft of penis ,and contreras aspect of scrotum. Both wounds oozing large amt sanguineous and serosanguineous exudate. Multiple open wounds with Biofilm at base of each wounds noted to contreras/lateral,inferior and posterior aspects of scrotum. These wounds noted to be oozing moderate amts of serosanguineous exudate. Hypertrophic scar with scattered areas of hyperpigmentation noted to Sacrum. DTPI noted to L Buttocks (L)7cm x (W)9cm. Base of wound is purple and indurated.Darker skin tone without erythema, induration or fluctuance R and L ischial tuberosities. Both heels are boggy with non-blanchable erythema. Tx.Plan: Cleanse wound R elbow with Saline. Apply TheraHoney, Apply Moisture Barrier Paste periwound. Cover with Optifoam drsg.Change Daily and prn. Wash GT site with soap and water.Pat dry. Apply Zinc Oxide Paste to GT site Daily. Leave Open to Air. Apply Zinc Oxide Paste to entire Scrotum, Place ABD pads to R and L lateral, and posterior aspects of scrotum TWICE daily. Apply Cavilon Skin Barrier to malleoli and both Heels. Cover each site with Optifoam drsgs. Change every 7 days and prn. Reposition at least every 2hours or as tolerated. Off-load heels with Pillows. APM/BECCA Mattress overlay. (10) Malnutrition Assessment & Plan: DAILY ESTIMATED NEEDS: Needs based on Renal, critical care, wound/ 61kg 22-30 kcals/kg 1652-1056 total kcals 1.25-2 g protein/kg 76-122 g total protein Fluid per MD, now on HD NUTRITION DIAGNOSIS: * Swallowing difficulty R/T respiratory failure, dysphagia as evidenced by trach/vent dep, PEG dep * Increased kcal/prot needs R/T wound healing as evidenced by admitted w/ multiple pressure injuries including full thickness wounds at junction of Shaft of penis, dorsal scrotum, R elbow, and DTPI @ L buttocks. CURRENT TF:Vital AF 1.2 @ 50ml/hr x 24 hrs + Garo BID ENTERAL NUTRITION RECOMMENDATIONS: Vital AF 1.2 @ 60ml/hr x 20 hrs to provide 1200ml, 1440kcal, 90g prot, 973ml free water * Rec 20 hr run time for GI rest. Increase TF to goal of 60ml/hr for 20 hrs to meet est needs. -> monitor lytes and renal fxn closely, monitor need for renal TF -> TF @ goal will provide 1642mg K and 2025mg Phos * HOB over 30 degrees/ water flush per MD -------- Pt continues to have loose stool, rectal tube. Trial of Osmolite 1.2 w/ goal of 60ml/hr for 20 hrs (4 hrs bowel rest) to provide 1200ml, 1440 kcal, 67g pro, 984ml free H2O, -> Rec to add prosource 1 pack daily (11g pro) to better meet est pro needs. -> Monitor BG, K closely. Pt would require increased insulin coverage as TF at goal would provide 56g more carbs per day. ------- ADDITIONAL RECOMMENDATIONS: * Per SNF: HT=63" XW=488 lbs (vs EMR wt of 166lbs) -> obtain re-calibrated bedscale wt, rec daily wt monitoring * Wound healing: con't Nephrovite + Garo BID/ Vit C dosing per Nephro * Monitor renal fxn and lytes closely w/ non-renal TF -> K low, phos wnl; rec updated mag level. * Daily wts w/ drop to 118-20 lbs, rec to recalibrate for accurate CBW * Consider adding anti-diarrheal med +rectal tube-> now on imodium (11) Uremia (12) CKD (chronic kidney disease) stage 5, GFR less than 15 ml/min (13) Colon distention Assessment & Plan: discussed with GI likely functional as having lots of loose bm rectal tube kub f/u s/p colonoscopy - findings reviewed with GI Marked distention of the sigmoid colon. 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 No evidence of bowel wall thickening or pneumatosis 12 mm focus of contrast enhancement in the right pectineus muscle. While nonspecific in appearance, appearance raises concern for a possible pseudoaneurysm. Ill- defined thickening of the pectus medius muscle could indicate some intramuscular hemorrhage. The above findings were phoned to Dr. Urias at the time of interpretation Large bilateral pleural effusions Hazy pulmonary parenchymal opacities as well as dense consolidative opacities most likely represent pulmonary edema, but could represent pneumonia Evidence of anasarca elsewhere, with generalized edema of the subcutaneous fat Bladder wall thickening, raises concern for cystitis. Avalos catheter in place Colonic diverticulosis. No evidence of diverticulitis. Tracheostomy Pacemaker Gastrostomy Jonathan Urias Sep 25, 2019 14:40
--- NOTE | 2019-09-25 15:09 | NUR ---
CASE MANAGEMENT: REVIEW SI: PNA . ESRD on HD . CHRONIC LEUKOCYTOSIS T 100.4 HR 75 RR 18 BP 129/53 SAT 99% MECH VENT FIO2 24 WBC 15.2 H/H 9.0/30.2 NA 133 BUN 66 CR 3.5 IS: EPOETIN SUBQ QMWF HEPARIN IV PRN HD NOVOLOG SUBQ Q6HR HD NEEDED STEP DOWN UNIT STATUS DCP: PATIENT HAS BEEN ACCEPTED TO [facility]; WITH OUTPATIENT HD AT [facility] PENDING [facility] PATIENT HAS BEEN ACCEPTED TO [facility]; PENDING WBC WITHIN NORMAL LIMITS
--- NOTE | 2019-09-25 15:18 | NUR ---
INSURANCE REVIEW AND PROGRESS NOTES FAXED TO [facility] REF# [id number] RUSSELLM:HARPER P:[phone] F:[phone]
--- NOTE | 2019-09-25 15:30 | NUR ---
NURSE NOTES: Noted pt vomiting x1 with large amount of clear emesis. No s/s of aspiration noted. Noted hypoactive bowel sound x all four quadrants. Put pt on left side high folower's position. Will continue monitoring for s/s of GI distress.
[2019-09-25 16:00] VITALS: BP 123/63
--- NOTE | 2019-09-25 19:10 | NUR ---
NURSE HAND-OFF REPORT: Important Events on Shift: Patient Status: stable. Diet: Osmolite 1.2 @20ml/hr and goal at 60ml/hr for 20 hrs Pending Orders: n/a Pending Results/Labs:n/a Pending MD notification:n/a Latest Vital Signs: Temperature 98.0 , Pulse 82 , B/P 123 /63 , Respiratory Rate 19 , O2 SAT 99 , Mechanical Ventilator, O2 Flow Rate 15.0 . Vital Sign Comment: VSS EKG Rhythm: SR w' BBB Rhythm change?: N MD Notified?: N - MD Response: Latest Delacruz Fall Score: 50 Fall Risk: High Risk Safety Measures: Call light Within Reach, Bed Alarm Zone 2, Side Rails Side Rails x3, Bed position Low and Locked. Fall Precautions: Yellow Socks Yellow Gown Door Sign Patient Fall Education Report given to TAMICA Love.
--- NOTE | 2019-09-25 19:34 | NUR ---
NURSE NOTES: Report received from TAMICA Madsen with update. Orders to keep pt on left / right secondary to distended abdomen. Flatus present. Made aware of vomitus x1 today. No zofran ordered. Diet order changed from Vital AF to Osmolite 1.2 at rate of 60 if vomiting subsides. Kept pt in fowlers position. g-tube intact with zero residual. Afebrile and no episodes of hypotension at start of shift. Made aware of HD tomorrow. Bed placed in lowest and locked position. Bed alarm on. Will continue to monitor.
[2019-09-25 20:00] VITALS: BP 140/68
[2019-09-25] MEDS: Atorvastatin 20mg tab GT SCH (20:17)
[2019-09-25] MEDS: Dyna-Hex 2% Top Sol 2oz TOPIC SCH (20:17)
[2019-09-25] MEDS: Epoetin Alfa-EPBX(ESRD on dialysis)10,000 unit/ml vial SUBQ SCH (20:18)
--- NOTE | 2019-09-25 21:09 | General Progress Note ---
Assessment/Plan Assessment/Plan: Assessment - abdominal distention, not acute - colonoscopy negative to hepatic flexure - diarrhea - presumed TF related - abnormal LFT - Anemia - leukocytosis - stool OB (+) - EGD --> gastritis - Renal failure - Anasarca - resp failure, trach - dysphagia, GT - encephalopathy, contracted - poor px Recommendations - Continue TF - will change to another formula - Hold BID Imodium - Check KUB, 1 view - Elevate HOB - f/u labs - PPI - abx - supportive care Subjective Allergies: Coded Allergies: No Known Allergies (Unverified , 06/10/19) Subjective Above noted d/w RN tolerating TF, w/o residuals changed formula per RD rec but RN reports abd more distended today Objective Last 24 Hour Vital Signs Date Time Temp Pulse Resp B/P (MAP) Pulse Ox O2 Delivery O2 Flow Rate FiO2 09/25/19 20:34 85 17 24 09/25/19 20:19 88 140/68 09/25/19 20:00 98.2 88 20 140/68 (92) 99 09/25/19 20:00 24 09/25/19 19:30 87 14 24 09/25/19 16:50 82 19 24 09/25/19 16:00 81 09/25/19 16:00 98.0 77 19 123/63 (83) 99 09/25/19 16:00 24 09/25/19 16:00 Mechanical Ventilator 09/25/19 15:15 80 15 24 09/25/19 13:30 82 15 24 09/25/19 12:00 98.0 75 18 129/53 (78) 99 09/25/19 12:00 24 09/25/19 12:00 75 09/25/19 12:00 Mechanical Ventilator 09/25/19 10:40 71 12 24 09/25/19 09:37 130/61 09/25/19 09:00 73 130/61 09/25/19 08:45 73 12 24 09/25/19 08:00 24 09/25/19 08:00 Mechanical Ventilator 09/25/19 08:00 97.7 74 18 130/61 (84) 100 09/25/19 08:00 71 09/25/19 07:22 72 12 24 09/25/19 07:00 99.1 09/25/19 06:02 100.0 09/25/19 06:00 100.0 09/25/19 05:30 100.4 09/25/19 05:08 81 12 24 09/25/19 04:00 24 09/25/19 04:00 99.3 87 18 130/62 (84) 100 09/25/19 04:00 Mechanical Ventilator 09/25/19 03:42 83 09/25/19 02:30 83 16 24 09/25/19 01:04 80 12 24 09/25/19 00:00 Mechanical Ventilator 09/25/19 00:00 97.9 80 18 115/74 (88) 100 09/24/19 23:33 79 09/24/19 22:50 72 12 24 09/24/19 21:07 79 12 24 Intake and Output 09/24/19 09/25/19 19:00 07:00 Intake Total 790 ml 650 ml Output Total 50 ml Balance 740 ml 650 ml Free Water 190 ml 10 ml Tube Feeding 600 ml 600 ml Blood Product 40 ml Stool Total 50 ml Laboratory Tests 09/25/19 00:04: POC Whole Blood Glucose [Pending] 09/25/19 05:29: POC Whole Blood Glucose 167H 09/25/19 05:36: White Blood Count 15.2H, Red Blood Count 3.56L, Hemoglobin 9.0L, Hematocrit 30.2L, Mean Corpuscular Volume 85, Mean Corpuscular Hemoglobin 25.4L, Mean Corpuscular Hemoglobin Concent 30.0L, Red Cell Distribution Width 17.7H, Platelet Count 457H, Mean Platelet Volume 6.6, Neutrophils (%) (Auto) 59.5, Lymphocytes (%) (Auto) 17.9L, Monocytes (%) (Auto) 7.7, Eosinophils (%) (Auto) 14.1H, Basophils (%) (Auto) 0.9, Sodium Level 133L, Potassium Level 4.5#, Chloride Level 95L, Carbon Dioxide Level 24, Anion Gap 14, Blood Urea Nitrogen 66H, Creatinine 3.5H, Estimat Glomerular Filtration Rate 17.0, Glucose Level 158H, Calcium Level 8.6 09/25/19 13:00: POC Whole Blood Glucose 169H 09/25/19 17:41: POC Whole Blood Glucose 139H Height (Feet): 5 Height (Inches): 10.00 Weight (Pounds): 120 Objective Debilitated AA man NCAT (+) trach coarse BS RR abd distended, anasarca, (+) GT ext (+) edema contracted Ronny Mustafa MD Sep 25, 2019 21:09
--- NOTE | 2019-09-25 22:00 | NUR ---
NURSE NOTES: Abdominal x-ray at bedside for distended abdomen. Pt afebrile with no s/s of respiratory or cardiac distress.
--- NOTE | 2019-09-25 22:07 | Diagnostic Imaging Report ---
EXAM: XR Abdomen, 2 Views CLINICAL HISTORY: ABD DIST TECHNIQUE: Frontal view of the abdomen/pelvis with upright view of the abdomen. COMPARISON: 08/19/2019 FINDINGS: Lower thorax: Suboptimal lung base evaluation. Intraperitoneal space: No free air. Gastrointestinal tract: Markedly distended gas-filled large bowel loops suggest possible large bowel obstruction or potentially ileus. Large bowel loops measure up to 10 cm. Bones/joints: Unremarkable. IMPRESSION: 1. Suboptimal lung base evaluation. 2. Markedly distended gas-filled large bowel loops suggest possible large bowel obstruction or potentially ileus. 3. Recommend IV contrast enhanced CT abdomen and pelvis to further evaluate these findings.
[2019-09-26] VITALS: BP 116/65
[2019-09-26 04:00] VITALS: BP 138/64
[2019-09-26 05:06] LABS: BASOPHILS % (AUTO) 0.9 % (0.0-2.0); EOSINOPHILS % (AUTO) 11.3 % (0.0-3.0); HEMATOCRIT 30.6 % (42.0-52.0); HEMOGLOBIN 9.3 G/DL (14.2-18.0); LYMPHOCYTES % (AUTO) 17.2 % (20.0-45.0); MEAN CORPUSCULAR VOLUME 84 FL (80-99); MONOCYTES % (AUTO) 8.6 % (1.0-10.0); NEUTROPHILS % (AUTO) 61.9 % (45.0-75.0); PLATELET COUNT 529 K/UL (150-450); RED BLOOD COUNT 3.66 M/UL (4.70-6.10); RED CELL DISTRIBUTION WIDTH 17.3 % (11.6-14.8); WHITE BLOOD COUNT 16.7 K/UL (4.8-10.8)
[2019-09-26 05:27] LABS: ANION GAP 14 mmol/L (5-15); BLOOD UREA NITROGEN 104 mg/dL (7-18); CALCIUM 9.6 MG/DL (8.5-10.1); CARBON DIOXIDE 24 MMOL/L (21-32); CHLORIDE 95 MMOL/L (98-107); CREATININE 4.5 MG/DL (0.55-1.30); POTASSIUM 3.8 MMOL/L (3.5-5.1); SODIUM 133 MMOL/L (136-145)
[2019-09-26] MEDS: NovoLOG Insulin Flexpen SUBQ SCH ×3 (05:54→18:40)
[2019-09-26] MEDS ORDERED: Heparin Sod 1000 units/ml 10ml IV PRN (06:00)
[2019-09-26] MEDS ORDERED: Heparin 1000 units/ml 1ml Vial INJ SCH ×2 (06:00)
[2019-09-26] MEDS ORDERED: Heparin Sod 1000 units/ml 10ml IV SCH (06:00)
--- NOTE | 2019-09-26 06:42 | Hematology/Onc Progress Note ---
Assessment/Plan Assessment/Plan Assessment/recs # Leukocytosis - with multiple infections, VRE UTI, flow is negative --> wbc trend 33-->28-->25->23->22->23->24->17.3-->17-->14->16-->15.6-->14-->14- >13->19->18->17->22->22->19->17-->18->20-->15 --> on abx, linezolid and zosyn--> zosyn-->gent-->off --> + blood cultures with coag neg staph likely contaminated --> as per id recs --> has ordered a flow cytometry (with pathology) --> does show increased nK cell activity --> JOURDAN 2 and bcr-abl labs ordered (these are send outs) --> plt 585-->613-->649-->669->663 # Anemia due to chronic disease/kidney disease as well, gi bleed + occult + noted --> was on iron in the past, now on hold --> has been started on Epogen sq --> as per renal care --> egd done and shows gastritis --> on ppi --> egd showed gastritis, colo recently done --> hgb 9-->8.7-->7.6-->9.2-->8.9-->9.2->9.3-->8.8->9.9-->9.2-->8.1-->8.7-->7.9- ->8.6-->8.9-->8.2->9-->9.3 # Respiratory failure --> per pulm, s/p trach --> COVID 19 test negative x 2 # Hyperlipidemia --> statin po # Dysphagia s/p gtube with nepro --> per gi # ESRD with r fem julito --> hd as per renal # Dvt ppx scds Appreciate consultation and matt Rn Subjective HEENT: Denies: no symptoms, eye pain, blurred vision, tearing, double vision, ear pain, ear discharge, nose pain, nose congestion, throat pain, throat swelling, mouth pain, mouth swelling, other Cardiovascular: Denies: no symptoms, chest pain, edema, irregular heart rate, lightheadedness, palpitations, syncope, other Respiratory: Denies: no symptoms, cough, shortness of breath, SOB with excertion, SOB at rest, sputum, wheezing, other Gastrointestinal/Abdominal: Denies: no symptoms, abdomen distended, abdominal pain, black stools, tarry stools, blood in stool, constipated, diarrhea, difficulty swallowing, nausea, poor appetite, poor fluid intake, rectal bleeding , vomiting, other Genitourinary: Denies: no symptoms, burning, discharge, frequency, flank pain, hematuria, incontinence, pain, urgency, other Neurologic/Psychiatric: Denies: no symptoms, anxiety, depressed, emotional problems, headache, numbness, paresthesia, pre-existing deficit, seizure, tingling, tremors, weakness, other Hematologic/Lymphatic: Denies: no symptoms, anemia, easy bleeding, easy bruising, adenopathy, other Allergies: Coded Allergies: No Known Allergies (Unverified , 06/10/19) Subjective 08/15 meds noted, no bleeding, hgb 8.8, wbc 28, path flow pending 08/16 flow pending dw pathologist, results pending, wbc 25, hgb 9 08/17 labs reviewed, meds reviewed, meds noted, no night sweats 08/19 remains obtunded, on vent/trach, no bleeding wbc 21.7 08/20 labs have been reviewed, no bleeding, wbc still elev, path reviewed 08/21 labs are noted, no bleeding, on vent, wbc better 08/22 labs noted, no bleeding, meds reviewed, wbc 24 hgb 7.6 08/23 vent, off abx, c diff negative, h/h stable 08/24 labs reviewed, on abx, wbc 17, hgb 8.9, no hemolysis 08/26 reviewed flow and is negative for leukemia, matt rn 08/27 meds reviewed, no night sweats, matt rn, no major bleeding 08/28 meds reivewed, labs noted 08/29 wbc is stable, approx 15, hgb 8.8, no hemolysis 08/30 labs are noted, is for colo today, hgb 9.9 08/31 right fem julito in place, unchanged, hgb 9.2, gi aware 09/01 labs noted, hgb 8.8, plt >600, no bleeding 09/02 labs noted, no bleeding, with elev wbc still, no new changes 09/03 meds are noted, no bleeding, labs reviewed hgb 8.6 09/04 no major events, hd as per renal, abx, no bleeding hgb low 09/05 labs are noted, no bleeding, meds have been reviewed 09/06 no new labs no hemolysis, cbc is noted, no bleeding 09/07 meds reviewed, no bleeding, matt rn, permacat functioning well 09/09 meds reviewed, wbc still elevated, as per id recs, cbc noted 09/10 is obtunded, with gutbe in place, labs reviewed 09/11 obtunded, as per id, observe now off abx, labs noted, wbc 19 09/12 cbc is pending, remains on epogen, also off abx 09/13 labs reviewed, no bleeding, elev wbc, no night sweats 09/14 meds noted, no bleeding, wbc 19, hgb 9.5, no night sweats 09/21 obtunded, remains on vent, labs noted, no bleeding, hgb 8.9 09/22 obtunded, labs noted, no bleeding, on vent, unchanged 09/23 unchanges, wbc remains elevated 20k, on abx, on vent 09/24 labs have been reviewed, no bleeding, wbc 15, may need abx 09/25 formula gtube changed, labs noted, remains obtunded, hgb 9.3 Objective Objective Current Medications Medications (Trade) Dose Ordered Sig/Leonel Route PRN Reason Start Time Stop Time Status Last Admin Dose Admin Acetaminophen (Tylenol) 650 mg Q4H PRN GT Mild Pain (Pain Scale 1-3) 09/21/19 12:45 10/21/19 12:44 09/25/19 05:32 Atorvastatin Calcium (Lipitor) 40 mg BEDTIME GT 08/09/19 21:00 11/07/19 20:59 09/25/19 20:17 Chlorhexidine Gluconate (Felipa-Hex 2%) 1 applic DAILY@1999 TOPIC 09/12/19 20:00 12/11/19 19:59 09/25/19 20:17 Clonidine HCl (Catapres Tab) 0.1 mg Q4H PRN GT For High Blood Pressure 09/09/19 12:30 12/08/19 05:29 09/15/19 04:10 Dextrose (Dextrose 50%) 25 ml Q30M PRN IV Hypoglycemia 08/09/19 07:30 11/07/19 07:29 Dextrose (Dextrose 50%) 50 ml Q30M PRN IV Hypoglycemia 08/09/19 07:30 11/07/19 07:29 Diphenoxylate HCl/ Atropine (Lomotil) 2.5 mg QID PRN ORAL Diarrhea 09/24/19 08:45 10/24/19 08:44 Epoetin Andreas (Epoetin Andreas(ESRD on dialysis)) 10,000 unit WED-WED-WED SUBQ 09/20/19 21:00 12/19/19 20:59 09/25/19 20:18 Famotidine (Pepcid) 20 mg DAILY GT 08/30/19 09:00 11/28/19 08:59 09/25/19 09:38 Heparin Sodium (Porcine) (Heparin Sod 1000 units/ml 10ml) 2,000 unit NEEDED PRN IV Per rx protocol 09/26/19 06:00 09/26/19 23:59 Insulin Aspart (NovoLOG) Q6HR SUBQ 09/25/19 18:00 11/07/19 11:29 09/26/19 05:54 Lactobacillus Acidophilus (Culturelle) 1 tab TWICE A DAY GT 09/14/19 18:00 12/13/19 17:59 09/25/19 17:48 Metoprolol Tartrate (Lopressor) 200 mg Q12HR GT 08/09/19 09:00 11/07/19 08:59 09/25/19 20:19 Minoxidil (Loniten) 5 mg DAILY GT 08/09/19 09:00 11/07/19 08:59 09/25/19 09:37 Sodium Chloride 1,000 ml @ 500 mls/hr Q2H PRN IVLG sbp<90 during hd 09/26/19 06:00 09/26/19 23:59 Zinc Oxide (Zinc Oxide) 1 applic BID TOPIC 08/10/19 18:00 11/08/19 17:59 09/25/19 17:49 Last 24 Hour Vital Signs Date Time Temp Pulse Resp B/P (MAP) Pulse Ox O2 Delivery O2 Flow Rate FiO2 09/26/19 05:19 72 12 24 09/26/19 04:00 Mechanical Ventilator 09/26/19 04:00 24 09/26/19 03:30 72 09/26/19 03:24 73 12 24 09/26/19 01:11 70 12 24 09/26/19 00:00 24 09/26/19 00:00 98.9 70 12 116/65 (82) 99 09/26/19 00:00 Mechanical Ventilator 09/25/19 23:32 69 09/25/19 23:27 68 12 24 09/25/19 20:34 85 17 24 09/25/19 20:19 88 140/68 09/25/19 20:00 Mechanical Ventilator 09/25/19 20:00 98.2 88 20 140/68 (92) 99 09/25/19 20:00 89 09/25/19 20:00 24 09/25/19 19:30 87 14 24 09/25/19 16:50 82 19 24 09/25/19 16:00 81 09/25/19 16:00 98.0 77 19 123/63 (83) 99 09/25/19 16:00 24 09/25/19 16:00 Mechanical Ventilator 09/25/19 15:15 80 15 24 09/25/19 13:30 82 15 24 09/25/19 12:00 98.0 75 18 129/53 (78) 99 09/25/19 12:00 24 09/25/19 12:00 75 09/25/19 12:00 Mechanical Ventilator 09/25/19 10:40 71 12 24 09/25/19 09:37 130/61 09/25/19 09:00 73 130/61 09/25/19 08:45 73 12 24 09/25/19 08:00 24 09/25/19 08:00 Mechanical Ventilator 09/25/19 08:00 97.7 74 18 130/61 (84) 100 09/25/19 08:00 71 09/25/19 07:22 72 12 24 09/25/19 07:00 99.1 09/25/19 06:02 100.0 09/25/19 06:00 100.0 09/25/19 05:30 100.4 09/25/19 05:08 81 12 24 09/25/19 04:00 24 09/25/19 04:00 99.3 87 18 130/62 (84) 100 09/25/19 04:00 Mechanical Ventilator 09/25/19 03:42 83 09/25/19 02:30 83 16 24 09/25/19 01:04 80 12 24 09/25/19 00:00 Mechanical Ventilator 09/25/19 00:00 97.9 80 18 115/74 (88) 100 09/24/19 23:33 79 09/24/19 22:50 72 12 24 09/24/19 21:07 79 12 24 09/24/19 20:42 90 101/56 09/24/19 20:00 Mechanical Ventilator 09/24/19 20:00 98.0 72 16 124/57 (79) 100 09/24/19 20:00 24 09/24/19 19:22 72 09/24/19 19:12 73 14 24 09/24/19 17:07 74 12 24 09/24/19 16:00 98.0 75 12 129/63 (85) 100 09/24/19 16:00 76 09/24/19 16:00 Mechanical Ventilator 09/24/19 16:00 24 09/24/19 14:44 74 12 24 09/24/19 13:28 81 13 24 09/24/19 12:00 Mechanical Ventilator 09/24/19 12:00 80 09/24/19 12:00 24 09/24/19 12:00 98.9 80 12 128/59 (82) 100 09/24/19 11:21 80 12 24 09/24/19 09:08 82 12 24 09/24/19 09:00 82 98/45 09/24/19 09:00 98/45 09/24/19 08:22 83 09/24/19 08:00 98.2 83 12 104/44 (64) 100 09/24/19 08:00 24 09/24/19 08:00 Mechanical Ventilator 09/24/19 07:04 84 23 24 Intake and Output 09/25/19 09/26/19 19:00 07:00 Intake Total 550 ml 220 ml Output Total 10 ml Balance 540 ml 220 ml Free Water 20 ml Tube Feeding 350 ml 200 ml Other 200 ml Stool Total 10 ml # Bowel Movements 1 Labs Test 09/23/19 13:10 09/23/19 17:38 09/24/19 00:16 09/24/19 05:36 POC Whole Blood Glucose 126 MG/DL (74-106) 172 MG/DL (74-106) Test 09/24/19 08:30 09/24/19 10:30 09/24/19 12:35 09/24/19 17:14 White Blood Count 15.1 K/UL (4.8-10.8) Red Blood Count 3.46 M/UL (4.70-6.10) Hemoglobin 8.8 G/DL (14.2-18.0) Hematocrit 29.4 % (42.0-52.0) Mean Corpuscular Volume 85 FL (80-99) Mean Corpuscular Hemoglobin 25.4 PG (27.0-31.0) Mean Corpuscular Hemoglobin Concent 29.8 G/DL (32.0-36.0) Red Cell Distribution Width 17.3 % (11.6-14.8) Platelet Count 413 K/UL (150-450) Mean Platelet Volume 6.2 FL (6.5-10.1) Neutrophils (%) (Auto) 64.0 % (45.0-75.0) Lymphocytes (%) (Auto) 16.0 % (20.0-45.0) Monocytes (%) (Auto) 9.0 % (1.0-10.0) Eosinophils (%) (Auto) 10.3 % (0.0-3.0) Basophils (%) (Auto) 0.8 % (0.0-2.0) Sodium Level 131 MMOL/L (136-145) Potassium Level 2.8 MMOL/L (3.5-5.1) Chloride Level 94 MMOL/L (98-107) Carbon Dioxide Level 31 MMOL/L (21-32) Anion Gap 7 mmol/L (5-15) Blood Urea Nitrogen 45 mg/dL (7-18) Creatinine 2.8 MG/DL (0.55-1.30) Estimat Glomerular Filtration Rate 22.0 mL/min (>60) Glucose Level 190 MG/DL (74-106) Calcium Level 8.8 MG/DL (8.5-10.1) Total Bilirubin 0.6 MG/DL (0.2-1.0) Aspartate Amino Transf (AST/SGOT) 39 U/L (15-37) Alanine Aminotransferase (ALT/SGPT) 30 U/L (12-78) Alkaline Phosphatase 156 U/L (46-116) Total Protein 8.8 G/DL (6.4-8.2) Albumin 2.0 G/DL (3.4-5.0) Globulin 6.8 g/dL Albumin/Globulin Ratio 0.3 (1.0-2.7) POC Whole Blood Glucose 186 MG/DL (74-106) Test 09/25/19 00:04 09/25/19 05:29 09/25/19 05:36 09/25/19 13:00 POC Whole Blood Glucose 167 MG/DL (74-106) 169 MG/DL (74-106) White Blood Count 15.2 K/UL (4.8-10.8) Red Blood Count 3.56 M/UL (4.70-6.10) Hemoglobin 9.0 G/DL (14.2-18.0) Hematocrit 30.2 % (42.0-52.0) Mean Corpuscular Volume 85 FL (80-99) Mean Corpuscular Hemoglobin 25.4 PG (27.0-31.0) Mean Corpuscular Hemoglobin Concent 30.0 G/DL (32.0-36.0) Red Cell Distribution Width 17.7 % (11.6-14.8) Platelet Count 457 K/UL (150-450) Mean Platelet Volume 6.6 FL (6.5-10.1) Neutrophils (%) (Auto) 59.5 % (45.0-75.0) Lymphocytes (%) (Auto) 17.9 % (20.0-45.0) Monocytes (%) (Auto) 7.7 % (1.0-10.0) Eosinophils (%) (Auto) 14.1 % (0.0-3.0) Basophils (%) (Auto) 0.9 % (0.0-2.0) Sodium Level 133 MMOL/L (136-145) Potassium Level 4.5 MMOL/L (3.5-5.1) Chloride Level 95 MMOL/L (98-107) Carbon Dioxide Level 24 MMOL/L (21-32) Anion Gap 14 mmol/L (5-15) Blood Urea Nitrogen 66 mg/dL (7-18) Creatinine 3.5 MG/DL (0.55-1.30) Estimat Glomerular Filtration Rate 17.0 mL/min (>60) Glucose Level 158 MG/DL (74-106) Calcium Level 8.6 MG/DL (8.5-10.1) Test 09/25/19 17:41 09/25/19 23:07 09/26/19 03:00 09/26/19 05:52 POC Whole Blood Glucose 139 MG/DL (74-106) White Blood Count 16.7 K/UL (4.8-10.8) Red Blood Count 3.66 M/UL (4.70-6.10) Hemoglobin 9.3 G/DL (14.2-18.0) Hematocrit 30.6 % (42.0-52.0) Mean Corpuscular Volume 84 FL (80-99) Mean Corpuscular Hemoglobin 25.3 PG (27.0-31.0) Mean Corpuscular Hemoglobin Concent 30.2 G/DL (32.0-36.0) Red Cell Distribution Width 17.3 % (11.6-14.8) Platelet Count 529 K/UL (150-450) Mean Platelet Volume 6.5 FL (6.5-10.1) Neutrophils (%) (Auto) 61.9 % (45.0-75.0) Lymphocytes (%) (Auto) 17.2 % (20.0-45.0) Monocytes (%) (Auto) 8.6 % (1.0-10.0) Eosinophils (%) (Auto) 11.3 % (0.0-3.0) Basophils (%) (Auto) 0.9 % (0.0-2.0) Sodium Level 133 MMOL/L (136-145) Potassium Level 3.8 MMOL/L (3.5-5.1) Chloride Level 95 MMOL/L (98-107) Carbon Dioxide Level 24 MMOL/L (21-32) Anion Gap 14 mmol/L (5-15) Blood Urea Nitrogen 104 mg/dL (7-18) Creatinine 4.5 MG/DL (0.55-1.30) Estimat Glomerular Filtration Rate 12.7 mL/min (>60) Glucose Level 119 MG/DL (74-106) Calcium Level 9.6 MG/DL (8.5-10.1) Height (Feet): 5 Height (Inches): 10.00 Weight (Pounds): 122 Objective Physical Exam General Appearance: nad, Chronically Ill Head: normocephalic Eyes: right eye PERRL - Will not open left eye ENT: moist mucus membranes Neck: other - submandibular mass R, fairly rigid with resistance to rotation to L, tracheotomy Respiratory: decreased breath sounds, crackles, other - pacemaker, vent+ Cardiovascular: regular rate, rhythm, edema - anasarca Gastrointestinal: non tender, distended, other - G tube Genitourinary: other Musculoskeletal: other - Contractures all extremities Neurologic: sensory intact, motor weakness, responsive Psychiatric: other Skin: Decubitus/Ulcer - Stage III right elbow, stage III left elbow, stage II sacrum, stage III scrotum, warm/dry Fitz Campos MD Sep 26, 2019 06:42
--- NOTE | 2019-09-26 07:16 | NUR ---
NURSE HAND-OFF REPORT: Important Events on Shift: KUB shows possible obstruction Patient Status: Stable Diet: Osmolite 1.2 Pending Orders: N Pending Results/Labs:N Pending MD notification:Y Latest Vital Signs: Temperature 98.7 , Pulse 72 , B/P 138 /64 , Respiratory Rate 12 , O2 SAT 99 , Mechanical Ventilator, O2 Flow Rate 15.0 . Vital Sign Comment: EKG Rhythm: V-Paced Rhythm change?: N MD Notified?: N - MD Response: Latest Delacruz Fall Score: 50 Fall Risk: High Risk Safety Measures: Call light Within Reach, Bed Alarm Zone 1, Side Rails Side Rails x3, Bed position Low and Locked. Fall Precautions: Yellow Socks Yellow Gown Door Sign Patient Fall Education Report given to TAMICA Madsen.
--- NOTE | 2019-09-26 07:16 | NUR ---
NURSE NOTES: Received report from TAMICA Love. pt in bed open his eyes. Noted ABD distended. Reviewed x-ray results with possible obstruction. Will notify to Dr. Mustafa regarding x-ray results. IV site in left FA 20G SL patent and asymptomatic. Side railsx3 up for safety. Call light within reach. Rectal tube patent and intact. Will continue plan of care.
[2019-09-26 08:00] VITALS: BP 137/68
[2019-09-26] MEDS: Metoprolol Tartrate 100mg tab GT SCH ×2 (09:00→21:04)
[2019-09-26] MEDS: Minoxidil 2.5mg tab GT SCH (09:00)
--- NOTE | 2019-09-26 09:09 | General Progress Note ---
Assessment/Plan Assessment/Plan: IMPRESSION: 1. anemia. 2. diarrhea 3. Leukocytosis. 4. hypotension 5. Acute on chronic renal failure. 6. Hyponatremia. 7. Severe protein-calorie malnutrition. 8. Significantly elevated C-reactive protein concerning for infectious etiology. 9. Tracheostomy, G-tube. 10. Ventilator dependence. 11. anasarca 12. Hematuria 13. V pacing PLAN rectal tube lomotil monitor fever curve care noted on vent/ no wean monitor labs ID follow up monitor renal function: HD prognosis poor impression, plan, and exam edited and reviewed in detail care discussed with RN Subjective Allergies: Coded Allergies: No Known Allergies (Unverified , 06/10/19) Subjective remains ill on vent/ low grade fevers on HD vitals noted diarrhea with rectal tube Objective Last 24 Hour Vital Signs Date Time Temp Pulse Resp B/P (MAP) Pulse Ox O2 Delivery O2 Flow Rate FiO2 09/26/19 06:45 72 12 24 09/26/19 05:19 72 12 24 09/26/19 04:00 Mechanical Ventilator 09/26/19 04:00 24 09/26/19 04:00 98.7 72 12 138/64 (88) 99 09/26/19 03:30 72 09/26/19 03:24 73 12 24 09/26/19 01:11 70 12 24 09/26/19 00:00 24 09/26/19 00:00 98.9 70 12 116/65 (82) 99 09/26/19 00:00 Mechanical Ventilator 09/25/19 23:32 69 09/25/19 23:27 68 12 24 09/25/19 20:34 85 17 24 09/25/19 20:19 88 140/68 09/25/19 20:00 Mechanical Ventilator 09/25/19 20:00 98.2 88 20 140/68 (92) 99 09/25/19 20:00 89 09/25/19 20:00 24 09/25/19 19:30 87 14 24 09/25/19 16:50 82 19 24 09/25/19 16:00 81 09/25/19 16:00 98.0 77 19 123/63 (83) 99 09/25/19 16:00 24 09/25/19 16:00 Mechanical Ventilator 09/25/19 15:15 80 15 24 8/17/20 13:30 82 15 24 09/25/19 12:00 98.0 75 18 129/53 (78) 99 09/25/19 12:00 24 09/25/19 12:00 75 09/25/19 12:00 Mechanical Ventilator 09/25/19 10:40 71 12 24 09/25/19 09:37 130/61 Intake and Output 09/25/19 09/26/19 19:00 07:00 Intake Total 550 ml 240 ml Output Total 10 ml 0 ml Balance 540 ml 240 ml Free Water 40 ml Tube Feeding 350 ml 200 ml Other 200 ml Stool Total 10 ml 0 ml # Bowel Movements 1 Laboratory Tests 09/25/19 13:00: POC Whole Blood Glucose 169H 09/25/19 17:41: POC Whole Blood Glucose 139H 09/25/19 23:07: POC Whole Blood Glucose [Pending] 09/26/19 03:00: White Blood Count 16.7H, Red Blood Count 3.66L, Hemoglobin 9.3L, Hematocrit 30.6L, Mean Corpuscular Volume 84, Mean Corpuscular Hemoglobin 25.3L, Mean Corpuscular Hemoglobin Concent 30.2L, Red Cell Distribution Width 17.3H, Platelet Count 529H, Mean Platelet Volume 6.5, Neutrophils (%) (Auto) 61.9, Lymphocytes (%) (Auto) 17.2L, Monocytes (%) (Auto) 8.6, Eosinophils (%) (Auto) 11.3H, Basophils (%) (Auto) 0.9, Sodium Level 133L, Potassium Level 3.8, Chloride Level 95L, Carbon Dioxide Level 24, Anion Gap 14, Blood Urea Nitrogen 104H, Creatinine 4.5H, Estimat Glomerular Filtration Rate 12.7, Glucose Level 119H, Calcium Level 9.6 09/26/19 05:52: POC Whole Blood Glucose [Pending] Height (Feet): 5 Height (Inches): 10.00 Weight (Pounds): 122 Objective GENERAL: Ill-appearing male, chronically debilitated. HEENT: Tracheostomy in midline. Questionable fullness in the submandibular region. LUNGS: Coarse breath sounds. reduced breath sounds CARDIAC: S1, S2. Regular rate and rhythm. ABDOMEN: Soft. G-tube. EXTREMITIES: With noted edema. NEUROLOGICAL: Poorly responsive, weak diffusely. Kain Ramirez MD Sep 26, 2019 09:09
[2019-09-26] MEDS: Lactobacillus-GG tablet GT SCH ×2 (09:51→18:32)
[2019-09-26] MEDS: Zinc Oxide Oint 2oz TOPIC SCH ×2 (09:52→18:32)
--- NOTE | 2019-09-26 11:02 | Infectious Diseases Prog Note ---
Assessment/Plan Assessment/Plan antibiotics : none A 1. klebsiella catheter infection s/p rx 2. respiratory failure 3. leucocytosis increased 4. klebsiella, pseudomonas, providencia pneumonia s/p rx COVID 19 test negative x 2 5. renal failure on HD P 1. observe off antibiotics 2. will follow up cultures Subjective ROS Limited/Unobtainable: Yes Allergies: Coded Allergies: No Known Allergies (Unverified , 06/10/19) Objective Last 24 Hour Vital Signs Date Time Temp Pulse Resp B/P (MAP) Pulse Ox O2 Delivery O2 Flow Rate FiO2 09/26/19 10:40 75 13 24 09/26/19 09:10 74 12 24 09/26/19 09:00 72 138/64 09/26/19 09:00 138/64 09/26/19 08:00 98.8 71 12 137/68 (91) 99 09/26/19 06:45 72 12 24 09/26/19 05:19 72 12 24 09/26/19 04:00 Mechanical Ventilator 09/26/19 04:00 24 09/26/19 04:00 98.7 72 12 138/64 (88) 99 09/26/19 03:30 72 09/26/19 03:24 73 12 24 09/26/19 01:11 70 12 24 09/26/19 00:00 24 09/26/19 00:00 98.9 70 12 116/65 (82) 99 09/26/19 00:00 Mechanical Ventilator 09/25/19 23:32 69 09/25/19 23:27 68 12 24 09/25/19 20:34 85 17 24 09/25/19 20:19 88 140/68 09/25/19 20:00 Mechanical Ventilator 09/25/19 20:00 98.2 88 20 140/68 (92) 99 09/25/19 20:00 89 09/25/19 20:00 24 09/25/19 19:30 87 14 24 09/25/19 16:50 82 19 24 09/25/19 16:00 81 09/25/19 16:00 98.0 77 19 123/63 (83) 99 09/25/19 16:00 24 09/25/19 16:00 Mechanical Ventilator 09/25/19 15:15 80 15 24 09/25/19 13:30 82 15 24 09/25/19 12:00 98.0 75 18 129/53 (78) 99 09/25/19 12:00 24 09/25/19 12:00 75 09/25/19 12:00 Mechanical Ventilator Height (Feet): 5 Height (Inches): 10.00 Weight (Pounds): 122 HEENT: status post trach Respiratory/Chest: lungs clear Cardiovascular: normal rate, regular rhythm, no gallop/murmur Abdomen: soft, non tender, other - GT Extremities: no edema, other - right subclavian catheter Microbiology Date/Time Source Procedure Growth Status 09/23/19 12:00 Blood Blood Culture - Preliminary NO GROWTH AFTER 48 HOURS Resulted 09/23/19 22:00 Sputum Gram Stain - Final Resulted 09/23/19 22:00 Sputum Sputum Culture Pending Resulted 09/23/19 22:00 Stool Clostridium difficile Toxin Assay - Final Complete Laboratory Tests Test 09/25/19 13:00 09/25/19 17:41 09/25/19 23:07 09/26/19 03:00 POC Whole Blood Glucose 169 MG/DL (74-106) H 139 MG/DL (74-106) H Pending White Blood Count 16.7 K/UL (4.8-10.8) H Red Blood Count 3.66 M/UL (4.70-6.10) L Hemoglobin 9.3 G/DL (14.2-18.0) L Hematocrit 30.6 % (42.0-52.0) L Mean Corpuscular Volume 84 FL (80-99) Mean Corpuscular Hemoglobin 25.3 PG (27.0-31.0) L Mean Corpuscular Hemoglobin Concent 30.2 G/DL (32.0-36.0) L Red Cell Distribution Width 17.3 % (11.6-14.8) H Platelet Count 529 K/UL (150-450) H Mean Platelet Volume 6.5 FL (6.5-10.1) Neutrophils (%) (Auto) 61.9 % (45.0-75.0) Lymphocytes (%) (Auto) 17.2 % (20.0-45.0) L Monocytes (%) (Auto) 8.6 % (1.0-10.0) Eosinophils (%) (Auto) 11.3 % (0.0-3.0) H Basophils (%) (Auto) 0.9 % (0.0-2.0) Sodium Level 133 MMOL/L (136-145) L Potassium Level 3.8 MMOL/L (3.5-5.1) Chloride Level 95 MMOL/L (98-107) L Carbon Dioxide Level 24 MMOL/L (21-32) Anion Gap 14 mmol/L (5-15) Blood Urea Nitrogen 104 mg/dL (7-18) H Creatinine 4.5 MG/DL (0.55-1.30) H Estimat Glomerular Filtration Rate 12.7 mL/min (>60) Glucose Level 119 MG/DL (74-106) H Calcium Level 9.6 MG/DL (8.5-10.1) Test 09/26/19 05:52 POC Whole Blood Glucose Pending Current Medications Medications (Trade) Dose Ordered Sig/Leonel Route PRN Reason Start Time Stop Time Status Last Admin Dose Admin Acetaminophen (Tylenol) 650 mg Q4H PRN GT Mild Pain (Pain Scale 1-3) 09/21/19 12:45 10/21/19 12:44 09/25/19 05:32 Atorvastatin Calcium (Lipitor) 40 mg BEDTIME GT 08/09/19 21:00 11/07/19 20:59 09/25/19 20:17 Chlorhexidine Gluconate (Felipa-Hex 2%) 1 applic DAILY@1999 TOPIC 09/12/19 20:00 12/11/19 19:59 09/25/19 20:17 Clonidine HCl (Catapres Tab) 0.1 mg Q4H PRN GT For High Blood Pressure 09/09/19 12:30 12/08/19 05:29 09/15/19 04:10 Dextrose (Dextrose 50%) 25 ml Q30M PRN IV Hypoglycemia 08/09/19 07:30 11/07/19 07:29 Dextrose (Dextrose 50%) 50 ml Q30M PRN IV Hypoglycemia 08/09/19 07:30 11/07/19 07:29 Diphenoxylate HCl/ Atropine (Lomotil) 2.5 mg QID PRN ORAL Diarrhea 09/24/19 08:45 10/24/19 08:44 Epoetin Andreas (Epoetin Andreas(ESRD on dialysis)) 10,000 unit WED-WED-FRI SUBQ 09/20/19 21:00 12/19/19 20:59 09/25/19 20:18 Famotidine (Pepcid) 20 mg DAILY GT 08/30/19 09:00 11/28/19 08:59 09/26/19 09:51 Heparin Sodium (Porcine) (Heparin Sod 1000 units/ml 10ml) 2,000 unit NEEDED PRN IV Per rx protocol 09/26/19 06:00 09/26/19 23:59 Insulin Aspart (NovoLOG) Q6HR SUBQ 09/25/19 18:00 11/07/19 11:29 09/26/19 05:54 Lactobacillus Acidophilus (Culturelle) 1 tab TWICE A DAY GT 09/14/19 18:00 12/13/19 17:59 09/26/19 09:51 Metoprolol Tartrate (Lopressor) 200 mg Q12HR GT 08/09/19 09:00 11/07/19 08:59 09/25/19 20:19 Minoxidil (Loniten) 5 mg DAILY GT 08/09/19 09:00 11/07/19 08:59 09/25/19 09:37 Sodium Chloride 1,000 ml @ 500 mls/hr Q2H PRN IVLG sbp<90 during hd 09/26/19 06:00 09/26/19 23:59 Zinc Oxide (Zinc Oxide) 1 applic BID TOPIC 08/10/19 18:00 11/08/19 17:59 09/26/19 09:52 Farnaz Lyle MD Sep 26, 2019 11:02
[2019-09-26 12:00] VITALS: BP 127/55
--- NOTE | 2019-09-26 13:21 | Nephrology Progress Note ---
Assessment/Plan Plan MOF Established ESRD - HD now TTS. Anemia of CKD -TUYET. Labs BUN 105. K 3.4 Subjective Subjective Obtunded. On HD Now. Stable run. HD Parameteres OK. Objective Objective Last 24 Hour Vital Signs Date Time Temp Pulse Resp B/P (MAP) Pulse Ox O2 Delivery O2 Flow Rate FiO2 09/26/19 12:00 98.6 75 12 127/55 (79) 99 09/26/19 12:00 24 09/26/19 10:40 75 13 24 09/26/19 09:10 74 12 24 09/26/19 09:00 72 138/64 09/26/19 09:00 138/64 09/26/19 08:00 98.8 71 12 137/68 (91) 99 09/26/19 08:00 72 09/26/19 08:00 24 09/26/19 06:45 72 12 24 09/26/19 05:19 72 12 24 09/26/19 04:00 Mechanical Ventilator 09/26/19 04:00 24 09/26/19 04:00 98.7 72 12 138/64 (88) 99 09/26/19 03:30 72 09/26/19 03:24 73 12 24 09/26/19 01:11 70 12 24 09/26/19 00:00 24 09/26/19 00:00 98.9 70 12 116/65 (82) 99 09/26/19 00:00 Mechanical Ventilator 09/25/19 23:32 69 09/25/19 23:27 68 12 24 09/25/19 20:34 85 17 24 09/25/19 20:19 88 140/68 09/25/19 20:00 Mechanical Ventilator 09/25/19 20:00 98.2 88 20 140/68 (92) 99 09/25/19 20:00 89 09/25/19 20:00 24 09/25/19 19:30 87 14 24 09/25/19 16:50 82 19 24 09/25/19 16:00 81 09/25/19 16:00 98.0 77 19 123/63 (83) 99 09/25/19 16:00 24 09/25/19 16:00 Mechanical Ventilator 09/25/19 15:15 80 15 24 09/25/19 13:30 82 15 24 Intake and Output 09/25/19 09/26/19 19:00 07:00 Intake Total 550 ml 240 ml Output Total 10 ml 0 ml Balance 540 ml 240 ml Free Water 40 ml Tube Feeding 350 ml 200 ml Other 200 ml Stool Total 10 ml 0 ml # Bowel Movements 1 Laboratory Tests 09/25/19 17:41: POC Whole Blood Glucose 139H 09/25/19 23:07: POC Whole Blood Glucose [Pending] 09/26/19 03:00: White Blood Count 16.7H, Red Blood Count 3.66L, Hemoglobin 9.3L, Hematocrit 30.6L, Mean Corpuscular Volume 84, Mean Corpuscular Hemoglobin 25.3L, Mean Corpuscular Hemoglobin Concent 30.2L, Red Cell Distribution Width 17.3H, Platelet Count 529H, Mean Platelet Volume 6.5, Neutrophils (%) (Auto) 61.9, Lymphocytes (%) (Auto) 17.2L, Monocytes (%) (Auto) 8.6, Eosinophils (%) (Auto) 11.3H, Basophils (%) (Auto) 0.9, Sodium Level 133L, Potassium Level 3.8, Chloride Level 95L, Carbon Dioxide Level 24, Anion Gap 14, Blood Urea Nitrogen 104H, Creatinine 4.5H, Estimat Glomerular Filtration Rate 12.7, Glucose Level 119H, Calcium Level 9.6 09/26/19 05:52: POC Whole Blood Glucose [Pending] 09/26/19 12:15: POC Whole Blood Glucose 138H Height (Feet): 5 Height (Inches): 10.00 Weight (Pounds): 122 Objective CV RR Trach clean Lungs CTA New Perma Cath RIJ. Abd SNT. BS + E No CCE Erica Pichardo MD Sep 26, 2019 13:21
[2019-09-26] MEDS ORDERED: D5W 275ml ONE (13:25)
--- NOTE | 2019-09-26 14:47 | Surgery Progress Note ---
Surgery Progress Note Subjective Procedure Performed Right femoral temporary hemodialysis catheter removal Additional Comments leukocytosis anemia labs reviewed exam stable ill appearing prognosis guarded Objective Last 24 Hour Vital Signs Date Time Temp Pulse Resp B/P (MAP) Pulse Ox O2 Delivery O2 Flow Rate FiO2 09/26/19 13:15 81 15 24 09/26/19 12:00 98.6 75 12 127/55 (79) 99 09/26/19 12:00 24 09/26/19 10:40 75 13 24 09/26/19 09:10 74 12 24 09/26/19 09:00 72 138/64 09/26/19 09:00 138/64 09/26/19 08:00 98.8 71 12 137/68 (91) 99 09/26/19 08:00 72 09/26/19 08:00 24 09/26/19 06:45 72 12 24 09/26/19 05:19 72 12 24 09/26/19 04:00 Mechanical Ventilator 09/26/19 04:00 24 09/26/19 04:00 98.7 72 12 138/64 (88) 99 09/26/19 03:30 72 09/26/19 03:24 73 12 24 09/26/19 01:11 70 12 24 09/26/19 00:00 24 09/26/19 00:00 98.9 70 12 116/65 (82) 99 09/26/19 00:00 Mechanical Ventilator 09/25/19 23:32 69 09/25/19 23:27 68 12 24 09/25/19 20:34 85 17 24 09/25/19 20:19 88 140/68 09/25/19 20:00 Mechanical Ventilator 09/25/19 20:00 98.2 88 20 140/68 (92) 99 09/25/19 20:00 89 09/25/19 20:00 24 09/25/19 19:30 87 14 24 09/25/19 16:50 82 19 24 09/25/19 16:00 81 09/25/19 16:00 98.0 77 19 123/63 (83) 99 09/25/19 16:00 24 09/25/19 16:00 Mechanical Ventilator 09/25/19 15:15 80 15 24 I&O Intake and Output 09/25/19 09/26/19 19:00 07:00 Intake Total 550 ml 240 ml Output Total 10 ml 0 ml Balance 540 ml 240 ml Free Water 40 ml Tube Feeding 350 ml 200 ml Other 200 ml Stool Total 10 ml 0 ml # Bowel Movements 1 Dressing: saturated Cardiovascular: RSR Respiratory: decreased breath sounds Abdomen: soft, non-tender, present bowel sounds Extremities: no edema, no tenderness, no cyanosis Laboratory Tests Test 09/25/19 17:41 09/25/19 23:07 09/26/19 03:00 09/26/19 05:52 POC Whole Blood Glucose 139 MG/DL (74-106) H Pending Pending White Blood Count 16.7 K/UL (4.8-10.8) H Red Blood Count 3.66 M/UL (4.70-6.10) L Hemoglobin 9.3 G/DL (14.2-18.0) L Hematocrit 30.6 % (42.0-52.0) L Mean Corpuscular Volume 84 FL (80-99) Mean Corpuscular Hemoglobin 25.3 PG (27.0-31.0) L Mean Corpuscular Hemoglobin Concent 30.2 G/DL (32.0-36.0) L Red Cell Distribution Width 17.3 % (11.6-14.8) H Platelet Count 529 K/UL (150-450) H Mean Platelet Volume 6.5 FL (6.5-10.1) Neutrophils (%) (Auto) 61.9 % (45.0-75.0) Lymphocytes (%) (Auto) 17.2 % (20.0-45.0) L Monocytes (%) (Auto) 8.6 % (1.0-10.0) Eosinophils (%) (Auto) 11.3 % (0.0-3.0) H Basophils (%) (Auto) 0.9 % (0.0-2.0) Sodium Level 133 MMOL/L (136-145) L Potassium Level 3.8 MMOL/L (3.5-5.1) Chloride Level 95 MMOL/L (98-107) L Carbon Dioxide Level 24 MMOL/L (21-32) Anion Gap 14 mmol/L (5-15) Blood Urea Nitrogen 104 mg/dL (7-18) H Creatinine 4.5 MG/DL (0.55-1.30) H Estimat Glomerular Filtration Rate 12.7 mL/min (>60) Glucose Level 119 MG/DL (74-106) H Calcium Level 9.6 MG/DL (8.5-10.1) Test 09/26/19 12:15 POC Whole Blood Glucose 138 MG/DL (74-106) H Plan Problems: (1) Anemia (2) Hyponatremia (3) Leukocytosis Assessment & Plan: Tracheostomy, left chest pacemaker are again demonstrated. There is bilateral interstitial and airspace disease and bilateral pleural fluid again demonstrated. This appears more severe than on the prior study. Bilateral interstitial and airspace infiltrates versus edema. Bilateral pleural effusions Leukocytosis, anemia, tachycardia, abnormal labs. Wound evaluated and likely etiology of patient's sepsis. Leukocytosis etiology work-up antibiotics per infectious disease Appreciate nephrology input transfuse with dialysis We will follow with recommendations thank you allowing participation's care plan HD access temp HD discussed with medical teams line okay HD as per renal persistent leukocytosis flow cyto noted improving trending down right fem line removed (4) Ventilator dependent (5) Right lower lobe pneumonia (6) Hypokalemia (7) Hyperkalemia (8) Anasarca (9) Decubitus skin ulcer Assessment & Plan: pt presented on admission with generalized edemae.Skin assessed under tracheostomy and no areas of concerns noted. GT Insertion is marginally erythematous with small amt slough at stoma. Unstageable Pressure Injury R elbow. Base of wound is 100% yellow slough, Borders are erythematous. Wound oozing small amt haemopurulent exudate.Darker skin tone without elevation in skin temp or erythema periwound. Pt's penis and scrotum are grossly edematous and enlarged and weeping serous exudate from numerous sites both from penis and scrotum. Two small open wounds noted at base of at base of shaft of penis ,and contreras aspect of scrotum. Both wounds oozing large amt sanguineous and serosanguineous exudate. Multiple open wounds with Biofilm at base of each wounds noted to contreras/lateral,inferior and posterior aspects of scrotum. These wounds noted to be oozing moderate amts of serosanguineous exudate. Hypertrophic scar with scattered areas of hyperpigmentation noted to Sacrum. DTPI noted to L Buttocks (L)7cm x (W)9cm. Base of wound is purple and indurated.Darker skin tone without erythema, induration or fluctuance R and L ischial tuberosities. Both heels are boggy with non-blanchable erythema. Tx.Plan: Cleanse wound R elbow with Saline. Apply TheraHoney, Apply Moisture Barrier Paste periwound. Cover with Optifoam drsg.Change Daily and prn. Wash GT site with soap and water.Pat dry. Apply Zinc Oxide Paste to GT site Daily. Leave Open to Air. Apply Zinc Oxide Paste to entire Scrotum, Place ABD pads to R and L lateral, and posterior aspects of scrotum TWICE daily. Apply Cavilon Skin Barrier to malleoli and both Heels. Cover each site with Optifoam drsgs. Change every 7 days and prn. Reposition at least every 2hours or as tolerated. Off-load heels with Pillows. APM/BECCA Mattress overlay. (10) Malnutrition Assessment & Plan: DAILY ESTIMATED NEEDS: Needs based on Renal, critical care, wound/ 61kg 22-30 kcals/kg 3235-5814 total kcals 1.25-2 g protein/kg 76-122 g total protein Fluid per MD, now on HD NUTRITION DIAGNOSIS: * Swallowing difficulty R/T respiratory failure, dysphagia as evidenced by trach/vent dep, PEG dep * Increased kcal/prot needs R/T wound healing as evidenced by admitted w/ multiple pressure injuries including full thickness wounds at junction of Shaft of penis, dorsal scrotum, R elbow, and DTPI @ L buttocks. CURRENT TF:Vital AF 1.2 @ 50ml/hr x 24 hrs + Garo BID ENTERAL NUTRITION RECOMMENDATIONS: Vital AF 1.2 @ 60ml/hr x 20 hrs to provide 1200ml, 1440kcal, 90g prot, 973ml free water * Rec 20 hr run time for GI rest. Increase TF to goal of 60ml/hr for 20 hrs to meet est needs. -> monitor lytes and renal fxn closely, monitor need for renal TF -> TF @ goal will provide 1642mg K and 2025mg Phos * HOB over 30 degrees/ water flush per MD -------- Pt continues to have loose stool, rectal tube. Trial of Osmolite 1.2 w/ goal of 60ml/hr for 20 hrs (4 hrs bowel rest) to provide 1200ml, 1440 kcal, 67g pro, 984ml free H2O, -> Rec to add prosource 1 pack daily (11g pro) to better meet est pro needs. -> Monitor BG, K closely. Pt would require increased insulin coverage as TF at goal would provide 56g more carbs per day. ------- ADDITIONAL RECOMMENDATIONS: * Per SNF: HT=63" BR=460 lbs (vs EMR wt of 166lbs) -> obtain re-calibrated bedscale wt, rec daily wt monitoring * Wound healing: con't Nephrovite + Garo BID/ Vit C dosing per Nephro * Monitor renal fxn and lytes closely w/ non-renal TF -> K low, phos wnl; rec updated mag level. * Daily wts w/ drop to 118-20 lbs, rec to recalibrate for accurate CBW * Consider adding anti-diarrheal med +rectal tube-> now on imodium (11) Uremia (12) CKD (chronic kidney disease) stage 5, GFR less than 15 ml/min (13) Colon distention Assessment & Plan: discussed with GI likely functional as having lots of loose bm rectal tube kub f/u s/p colonoscopy - findings reviewed with GI Marked distention of the sigmoid colon. 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 No evidence of bowel wall thickening or pneumatosis 12 mm focus of contrast enhancement in the right pectineus muscle. While nonspecific in appearance, appearance raises concern for a possible pseudoaneurysm. Ill- defined thickening of the pectus medius muscle could indicate some intramuscular hemorrhage. The above findings were phoned to Dr. Urias at the time of interpretation Large bilateral pleural effusions Hazy pulmonary parenchymal opacities as well as dense consolidative opacities most likely represent pulmonary edema, but could represent pneumonia Evidence of anasarca elsewhere, with generalized edema of the subcutaneous fat Bladder wall thickening, raises concern for cystitis. Avalos catheter in place Colonic diverticulosis. No evidence of diverticulitis. Tracheostomy Pacemaker Gastrostomy Jonathan Urias Sep 26, 2019 14:47
--- NOTE | 2019-09-26 15:26 | NUR ---
RESPIRATORY NOTE:Received pt on AC 12, 550VT, 24%, PEEP +5. Pt is trach-dependent w/ a cuffed, Portex 8 tube. Pt asleep/obtunded. B/S ovi. rhonchi, sxn small amounts of thick/thin, pale-yellow to perez-yellow secretions. Vent plugged into red outlet, ambubag at bedside. Pt in no apparent distress at this time. Will continue plan of care.
[2019-09-26 16:00] VITALS: BP 116/61
--- NOTE | 2019-09-26 16:06 | NUR ---
CASE MANAGEMENT: REVIEW SI: PNA . ESRD on HD . CHRONIC LEUKOCYTOSIS T 98.6 HR 75 RR 12 BP 175/55 SAT 99% MECH VENT FIO2 24 WBC 16.7 H/H 9.3/30.6 NA 133 BUN 104 CR 4.5 IS: EPOETIN SUBQ QMWF HEPARIN IV PRN HD NOVOLOG SUBQ Q6HR HD NEEDED STEP DOWN UNIT STATUS DCP: PATIENT HAS BEEN ACCEPTED TO [facility]; WITH OUTPATIENT HD AT [facility] PENDING [facility] PATIENT HAS BEEN ACCEPTED TO [facility]; PENDING WBC WITHIN NORMAL LIMITS
--- NOTE | 2019-09-26 16:14 | NUR ---
INSURANCE REVIEW AND PROGRESS NOTES FAXED TO [facility] REF# [id number] RUSSELLM:HARPER P:[phone] F:[phone]
--- NOTE | 2019-09-26 19:10 | NUR ---
NURSE HAND-OFF REPORT: Important Events on Shift:RECTAL TUBE INSERTION Patient Status: stable Diet: Osmolite 1.2 @goal 60ml/hr Pending Orders: n/a Pending Results/Labs:n/a Pending MD notification:n/a Latest Vital Signs: Temperature 98.1 , Pulse 79 , B/P 116 /61 , Respiratory Rate 14 , O2 SAT 99 , Mechanical Ventilator, O2 Flow Rate 15.0 . Vital Sign Comment: VSS EKG Rhythm: V-Paced Rhythm change?: N MD Notified?: N - MD Response: Latest Delacruz Fall Score: 50 Fall Risk: High Risk Safety Measures: Call light Within Reach, Bed Alarm Zone 1, Side Rails Side Rails x3, Bed position Low and Locked. Fall Precautions: Yellow Socks Yellow Gown Door Sign Patient Fall Education Report given to kyle HENDRIX.
--- NOTE | 2019-09-26 19:11 | NUR ---
NURSE NOTES: Report received from TAMICA Madsen. Observed pt lying in the bed, awake, open eyes, non-verbal. V paced on media monitor. Trach to vent, Portex8, AC 18, TV 550, FIO2 24%, PEEP5. GT intact running Osmolite 1.2 at 30cc/hr, goal at 60cc/hr noted, no residual, flushing well. Rectal tube noted. Abdominal distended noted. IV on L FA 20G, SL. Bed in the lowest position. Side rails up x3. Will continue to monitor.
[2019-09-26 20:00] VITALS: BP 121/56
[2019-09-26] MEDS: Atorvastatin 20mg tab GT SCH (21:03)
[2019-09-26] MEDS: Dyna-Hex 2% Top Sol 2oz TOPIC SCH (21:04)
--- NOTE | 2019-09-26 21:11 | General Progress Note ---
Assessment/Plan Assessment/Plan: Assessment - abdominal distention, due to colonic dysmotility - colonoscopy negative to hepatic flexure - diarrhea - presumed TF related - abnormal LFT - Anemia - leukocytosis - stool OB (+) - EGD --> gastritis - Renal failure - Anasarca - resp failure, trach - dysphagia, GT - encephalopathy, contracted - poor px Recommendations -TF - rectal decompression tube - Elevate HOB - f/u labs - PPI - abx - supportive care Subjective Allergies: Coded Allergies: No Known Allergies (Unverified , 06/10/19) Subjective Above noted d/w RN tolerating TF, w/o residuals more abdominal distention today order for rectal decomp tube given Objective Last 24 Hour Vital Signs Date Time Temp Pulse Resp B/P (MAP) Pulse Ox O2 Delivery O2 Flow Rate FiO2 09/26/19 21:04 88 121/56 09/26/19 20:30 84 15 24 09/26/19 18:43 76 18 24 09/26/19 17:29 79 14 24 09/26/19 16:00 24 09/26/19 16:00 Mechanical Ventilator 09/26/19 16:00 98.1 76 12 116/61 (79) 99 09/26/19 16:00 86 09/26/19 15:10 84 14 24 09/26/19 13:15 81 15 24 09/26/19 12:00 98.6 75 12 127/55 (79) 99 09/26/19 12:00 74 09/26/19 12:00 Mechanical Ventilator 09/26/19 12:00 24 09/26/19 10:40 75 13 24 09/26/19 09:10 74 12 24 09/26/19 09:00 72 138/64 09/26/19 09:00 138/64 09/26/19 08:00 Mechanical Ventilator 09/26/19 08:00 98.8 71 12 137/68 (91) 99 09/26/19 08:00 72 09/26/19 08:00 24 09/26/19 06:45 72 12 24 09/26/19 05:19 72 12 24 09/26/19 04:00 Mechanical Ventilator 09/26/19 04:00 24 09/26/19 04:00 98.7 72 12 138/64 (88) 99 09/26/19 03:30 72 09/26/19 03:24 73 12 24 09/26/19 01:11 70 12 24 09/26/19 00:00 24 09/26/19 00:00 98.9 70 12 116/65 (82) 99 09/26/19 00:00 Mechanical Ventilator 09/25/19 23:32 69 09/25/19 23:27 68 12 24 Intake and Output 09/25/19 09/26/19 19:00 07:00 Intake Total 550 ml 240 ml Output Total 10 ml 0 ml Balance 540 ml 240 ml Free Water 40 ml Tube Feeding 350 ml 200 ml Other 200 ml Stool Total 10 ml 0 ml # Bowel Movements 1 Laboratory Tests 09/25/19 23:07: POC Whole Blood Glucose [Pending] 09/26/19 03:00: White Blood Count 16.7H, Red Blood Count 3.66L, Hemoglobin 9.3L, Hematocrit 30.6L, Mean Corpuscular Volume 84, Mean Corpuscular Hemoglobin 25.3L, Mean Corpuscular Hemoglobin Concent 30.2L, Red Cell Distribution Width 17.3H, Platelet Count 529H, Mean Platelet Volume 6.5, Neutrophils (%) (Auto) 61.9, Lymphocytes (%) (Auto) 17.2L, Monocytes (%) (Auto) 8.6, Eosinophils (%) (Auto) 11.3H, Basophils (%) (Auto) 0.9, Sodium Level 133L, Potassium Level 3.8, Chloride Level 95L, Carbon Dioxide Level 24, Anion Gap 14, Blood Urea Nitrogen 104H, Creatinine 4.5H, Estimat Glomerular Filtration Rate 12.7, Glucose Level 119H, Calcium Level 9.6 09/26/19 05:52: POC Whole Blood Glucose [Pending] 09/26/19 12:15: POC Whole Blood Glucose 138H 09/26/19 18:38: POC Whole Blood Glucose 150H Height (Feet): 5 Height (Inches): 10.00 Weight (Pounds): 122 Objective Debilitated AA man NCAT (+) trach coarse BS RR abd (++) distended, anasarca, (+) GT ext (+) edema contracted Ronny Mustafa MD Sep 26, 2019 21:11
[2019-09-26] MEDS: Acetaminophen 650mg/20.3ml GT PRN (22:37)
[2019-09-27] VITALS: BP 105/47
[2019-09-27] MEDS: NovoLOG Insulin Flexpen SUBQ SCH ×4 (00:15→18:30)
--- NOTE | 2019-09-27 01:00 | NUR ---
NURSE NOTES: No acute distress noted at this time. Pt sleeping in the bed. V paced on floorworker distributor. Tolerating current vent setting, no sob. Abd distended noted, no output from rectal tube noted. Will continue to monitor.
--- NOTE | 2019-09-27 03:00 | NUR ---
NURSE NOTES: Bed bath given. Noted no output from rectal tube. Feeding on hold at this time. Removed rectal tube to see if pt can have bowel movement. Will continue to monitor.
[2019-09-27 04:00] VITALS: BP 121/55
--- NOTE | 2019-09-27 07:00 | NUR ---
NURSE NOTES: Nurse report given by TAMICA Hi. Patient's in stable condition, obtunded, no s/s of distress or SOB, no s/s of pain using FLACC score, comfortable. HOB > 30, bed low and locked, call light within reach, side rails x 3. Vent/ Trach present: Portex 8, AC 18, TV 550, FiO2 24%, Peeps 5. Oral care and suction provided. GT noted, NPO at this time, abdomen distended and hard. IV LFA 20g noted, patent and flushed, asymptomatic. Right subclavian tunnelcath noted, no s/s of bleeding, dressing intact, flushed well, blood return noted. Wound assessment performed. Will continue to monitor.
--- NOTE | 2019-09-27 07:09 | NUR ---
NURSE HAND-OFF REPORT: Important Events on Shift: Feeding held. Rectal tube removed, noted stool pasty. Patient Status: stable, sleeping, arousable, Vpaced. Diet: held Pending MD notification: tube feeding. Latest Vital Signs: Temperature 98.8 , Pulse 58 , B/P 121 /55 , Respiratory Rate 12 , O2 SAT 98 , Mechanical Ventilator, O2 Flow Rate 15.0 . Vital Sign Comment: EKG Rhythm: V-Paced Rhythm change?: N MD Notified?: N - MD Response: Latest Delacruz Fall Score: 50 Fall Risk: High Risk Safety Measures: Call light Within Reach, Bed Alarm Zone 1, Side Rails Side Rails x3, Bed position Low and Locked. Fall Precautions: Yellow Socks Yellow Gown Door Sign Patient Fall Education Report given to TAMICA Johnson.
--- NOTE | 2019-09-27 07:11 | Hematology/Onc Progress Note ---
Assessment/Plan Assessment/Plan Assessment/recs # Leukocytosis - with multiple infections, VRE UTI, flow is negative --> wbc trend 33-->28-->25->23->22->23->24->17.3-->17-->14->16-->15.6-->14-->14- >13->19->18->17->22->22->19->17-->18->20-->15 --> on abx, linezolid and zosyn--> zosyn-->gent-->off --> + blood cultures with coag neg staph likely contaminated --> as per id recs --> has ordered a flow cytometry (with pathology) --> does show increased nK cell activity --> JOURDAN 2 and bcr-abl labs ordered (these are send outs) --> plt 585-->613-->649-->669->663-->529 # Anemia due to chronic disease/kidney disease as well, gi bleed + occult + noted --> was on iron in the past, now on hold --> has been started on Epogen sq --> as per renal care --> egd done and shows gastritis --> on ppi --> egd showed gastritis, colo recently done --> hgb 9-->8.7-->7.6-->9.2-->8.9-->9.2->9.3-->8.8->9.9-->9.2-->8.1-->8.7-->7.9- ->8.6-->8.9-->8.2->9-->9.3 # Respiratory failure --> per pulm, s/p trach --> COVID 19 test negative x 2 # Hyperlipidemia --> statin po # Dysphagia s/p gtube with nepro --> per gi # ESRD with r fem julito --> hd as per renal # Dvt ppx scds Appreciate consultation and dw Rn Subjective Constitutional: Denies: no symptoms, chills, fever, malaise, weakness, other HEENT: Denies: no symptoms, eye pain, blurred vision, tearing, double vision, ear pain, ear discharge, nose pain, nose congestion, throat pain, throat swelling, mouth pain, mouth swelling, other Cardiovascular: Denies: no symptoms, chest pain, edema, irregular heart rate, lightheadedness, palpitations, syncope, other Respiratory: Denies: no symptoms, cough, shortness of breath, SOB with excertion, SOB at rest, sputum, wheezing, other Gastrointestinal/Abdominal: Denies: no symptoms, abdomen distended, abdominal pain, black stools, tarry stools, blood in stool, constipated, diarrhea, difficulty swallowing, nausea, poor appetite, poor fluid intake, rectal bleeding , vomiting, other Genitourinary: Denies: no symptoms, burning, discharge, frequency, flank pain, hematuria, incontinence, pain, urgency, other Neurologic/Psychiatric: Denies: no symptoms, anxiety, depressed, emotional problems, headache, numbness, paresthesia, pre-existing deficit, seizure, tingling, tremors, weakness, other Endocrine: Denies: no symptoms, excessive sweating, flushing, intolerance to cold, intolerance to heat, increased hunger, increased thirst, increased urine, unexplained weight gain, unexplained weight loss, other Hematologic/Lymphatic: Denies: no symptoms, anemia, easy bleeding, easy bruising, adenopathy, other Allergies: Coded Allergies: No Known Allergies (Unverified , 06/10/19) Subjective 08/15 meds noted, no bleeding, hgb 8.8, wbc 28, path flow pending 08/16 flow pending dw pathologist, results pending, wbc 25, hgb 9 08/17 labs reviewed, meds reviewed, meds noted, no night sweats 08/19 remains obtunded, on vent/trach, no bleeding wbc 21.7 08/20 labs have been reviewed, no bleeding, wbc still elev, path reviewed 08/21 labs are noted, no bleeding, on vent, wbc better 08/22 labs noted, no bleeding, meds reviewed, wbc 24 hgb 7.6 08/23 vent, off abx, c diff negative, h/h stable 08/24 labs reviewed, on abx, wbc 17, hgb 8.9, no hemolysis 08/26 reviewed flow and is negative for leukemia, matt rn 08/27 meds reviewed, no night sweats, matt rn, no major bleeding 08/28 meds reivewed, labs noted 08/29 wbc is stable, approx 15, hgb 8.8, no hemolysis 08/30 labs are noted, is for colo today, hgb 9.9 08/31 right fem julito in place, unchanged, hgb 9.2, gi aware 09/01 labs noted, hgb 8.8, plt >600, no bleeding 09/02 labs noted, no bleeding, with elev wbc still, no new changes 09/03 meds are noted, no bleeding, labs reviewed hgb 8.6 09/04 no major events, hd as per renal, abx, no bleeding hgb low 09/05 labs are noted, no bleeding, meds have been reviewed 09/06 no new labs no hemolysis, cbc is noted, no bleeding 09/07 meds reviewed, no bleeding, matt rn, permacath functioning well 09/09 meds reviewed, wbc still elevated, as per id recs, cbc noted 09/10 is obtunded, with gutbe in place, labs reviewed 09/11 obtunded, as per id, observe now off abx, labs noted, wbc 19 09/12 cbc is pending, remains on epogen, also off abx 09/13 labs reviewed, no bleeding, elev wbc, no night sweats 09/14 meds noted, no bleeding, wbc 19, hgb 9.5, no night sweats 09/21 obtunded, remains on vent, labs noted, no bleeding, hgb 8.9 09/22 obtunded, labs noted, no bleeding, on vent, unchanged 09/23 unchanges, wbc remains elevated 20k, on abx, on vent 09/24 labs have been reviewed, no bleeding, wbc 15, may need abx 09/25 formula gtube changed, labs noted, remains obtunded, hgb 9.3 09/26 labs have been reviewed, no bleeding, matt rn, no night sweats Objective Objective Current Medications Medications (Trade) Dose Ordered Sig/Leonel Route PRN Reason Start Time Stop Time Status Last Admin Dose Admin Acetaminophen (Tylenol) 650 mg Q4H PRN GT Mild Pain (Pain Scale 1-3) 09/21/19 12:45 10/21/19 12:44 09/26/19 22:37 Atorvastatin Calcium (Lipitor) 40 mg BEDTIME GT 08/09/19 21:00 11/07/19 20:59 09/26/19 21:03 Chlorhexidine Gluconate (Felipa-Hex 2%) 1 applic DAILY@1999 TOPIC 09/12/19 20:00 12/11/19 19:59 09/26/19 21:04 Clonidine HCl (Catapres Tab) 0.1 mg Q4H PRN GT For High Blood Pressure 09/09/19 12:30 12/08/19 05:29 09/15/19 04:10 Dextrose (Dextrose 50%) 25 ml Q30M PRN IV Hypoglycemia 08/09/19 07:30 11/07/19 07:29 Dextrose (Dextrose 50%) 50 ml Q30M PRN IV Hypoglycemia 08/09/19 07:30 11/07/19 07:29 Diphenoxylate HCl/ Atropine (Lomotil) 2.5 mg QID PRN ORAL Diarrhea 09/24/19 08:45 10/24/19 08:44 Epoetin Andreas (Epoetin Andreas(ESRD on dialysis)) 10,000 unit WED-WED-WED SUBQ 09/20/19 21:00 12/19/19 20:59 09/25/19 20:18 Famotidine (Pepcid) 20 mg DAILY GT 08/30/19 09:00 11/28/19 08:59 09/26/19 09:51 Insulin Aspart (NovoLOG) Q6HR SUBQ 09/25/19 18:00 11/07/19 11:29 09/27/19 00:15 Lactobacillus Acidophilus (Culturelle) 1 tab TWICE A DAY GT 09/14/19 18:00 12/13/19 17:59 09/26/19 18:32 Metoprolol Tartrate (Lopressor) 200 mg Q12HR GT 08/09/19 09:00 11/07/19 08:59 09/26/19 21:04 Minoxidil (Loniten) 5 mg DAILY GT 08/09/19 09:00 11/07/19 08:59 09/25/19 09:37 Zinc Oxide (Zinc Oxide) 1 applic BID TOPIC 08/10/19 18:00 11/08/19 17:59 8/18/20 18:32 Last 24 Hour Vital Signs Date Time Temp Pulse Resp B/P (MAP) Pulse Ox O2 Delivery O2 Flow Rate FiO2 09/27/19 04:56 58 12 24 09/27/19 04:00 24 09/27/19 04:00 98.8 67 12 121/55 (77) 98 09/27/19 04:00 68 09/27/19 04:00 Mechanical Ventilator 09/27/19 02:54 69 15 24 09/27/19 00:44 69 14 24 09/27/19 00:00 68 09/27/19 00:00 Mechanical Ventilator 09/27/19 00:00 24 09/27/19 00:00 98.4 67 12 105/47 (66) 98 09/26/19 23:07 99.0 09/26/19 22:39 68 12 24 09/26/19 21:04 88 121/56 09/26/19 20:30 84 15 24 09/26/19 20:00 24 09/26/19 20:00 99.7 89 17 121/56 (77) 99 09/26/19 20:00 Mechanical Ventilator 09/26/19 20:00 89 09/26/19 18:43 76 18 24 09/26/19 17:29 79 14 24 09/26/19 16:00 24 09/26/19 16:00 Mechanical Ventilator 09/26/19 16:00 98.1 76 12 116/61 (79) 99 09/26/19 16:00 86 09/26/19 15:10 84 14 24 09/26/19 13:15 81 15 24 09/26/19 12:00 98.6 75 12 127/55 (79) 99 09/26/19 12:00 74 09/26/19 12:00 Mechanical Ventilator 09/26/19 12:00 24 09/26/19 10:40 75 13 24 09/26/19 09:10 74 12 24 09/26/19 09:00 72 138/64 09/26/19 09:00 138/64 09/26/19 08:00 Mechanical Ventilator 09/26/19 08:00 98.8 71 12 137/68 (91) 99 09/26/19 08:00 72 09/26/19 08:00 24 09/26/19 06:45 72 12 24 09/26/19 05:19 72 12 24 09/26/19 04:00 Mechanical Ventilator 09/26/19 04:00 24 09/26/19 04:00 98.7 72 12 138/64 (88) 99 09/26/19 03:30 72 09/26/19 03:24 73 12 24 09/26/19 01:11 70 12 24 09/26/19 00:00 24 09/26/19 00:00 98.9 70 12 116/65 (82) 99 09/26/19 00:00 Mechanical Ventilator 09/25/19 23:32 69 09/25/19 23:27 68 12 24 09/25/19 20:34 85 17 24 09/25/19 20:19 88 140/68 09/25/19 20:00 Mechanical Ventilator 09/25/19 20:00 98.2 88 20 140/68 (92) 99 09/25/19 20:00 89 09/25/19 20:00 24 09/25/19 19:30 87 14 24 09/25/19 16:50 82 19 24 09/25/19 16:00 81 09/25/19 16:00 98.0 77 19 123/63 (83) 99 09/25/19 16:00 24 09/25/19 16:00 Mechanical Ventilator 09/25/19 15:15 80 15 24 09/25/19 13:30 82 15 24 09/25/19 12:00 98.0 75 18 129/53 (78) 99 09/25/19 12:00 24 09/25/19 12:00 75 09/25/19 12:00 Mechanical Ventilator 09/25/19 10:40 71 12 24 09/25/19 09:37 130/61 09/25/19 09:00 73 130/61 09/25/19 08:45 73 12 24 09/25/19 08:00 24 09/25/19 08:00 Mechanical Ventilator 09/25/19 08:00 97.7 74 18 130/61 (84) 100 09/25/19 08:00 71 09/25/19 07:22 72 12 24 Intake and Output 09/26/19 09/27/19 19:00 07:00 Intake Total 170 ml 310 ml Output Total 0 ml Balance 170 ml 310 ml Free Water 50 ml 60 ml Tube Feeding 120 ml 250 ml Hemodialysis UF 0 ml # Bowel Movements 1 Labs Test 09/24/19 08:30 09/24/19 10:30 09/24/19 12:35 09/24/19 17:14 White Blood Count 15.1 K/UL (4.8-10.8) Red Blood Count 3.46 M/UL (4.70-6.10) Hemoglobin 8.8 G/DL (14.2-18.0) Hematocrit 29.4 % (42.0-52.0) Mean Corpuscular Volume 85 FL (80-99) Mean Corpuscular Hemoglobin 25.4 PG (27.0-31.0) Mean Corpuscular Hemoglobin Concent 29.8 G/DL (32.0-36.0) Red Cell Distribution Width 17.3 % (11.6-14.8) Platelet Count 413 K/UL (150-450) Mean Platelet Volume 6.2 FL (6.5-10.1) Neutrophils (%) (Auto) 64.0 % (45.0-75.0) Lymphocytes (%) (Auto) 16.0 % (20.0-45.0) Monocytes (%) (Auto) 9.0 % (1.0-10.0) Eosinophils (%) (Auto) 10.3 % (0.0-3.0) Basophils (%) (Auto) 0.8 % (0.0-2.0) Sodium Level 131 MMOL/L (136-145) Potassium Level 2.8 MMOL/L (3.5-5.1) Chloride Level 94 MMOL/L (98-107) Carbon Dioxide Level 31 MMOL/L (21-32) Anion Gap 7 mmol/L (5-15) Blood Urea Nitrogen 45 mg/dL (7-18) Creatinine 2.8 MG/DL (0.55-1.30) Estimat Glomerular Filtration Rate 22.0 mL/min (>60) Glucose Level 190 MG/DL (74-106) Calcium Level 8.8 MG/DL (8.5-10.1) Total Bilirubin 0.6 MG/DL (0.2-1.0) Aspartate Amino Transf (AST/SGOT) 39 U/L (15-37) Alanine Aminotransferase (ALT/SGPT) 30 U/L (12-78) Alkaline Phosphatase 156 U/L (46-116) Total Protein 8.8 G/DL (6.4-8.2) Albumin 2.0 G/DL (3.4-5.0) Globulin 6.8 g/dL Albumin/Globulin Ratio 0.3 (1.0-2.7) POC Whole Blood Glucose 186 MG/DL (74-106) Test 09/25/19 00:04 09/25/19 05:29 09/25/19 05:36 09/25/19 13:00 POC Whole Blood Glucose 167 MG/DL (74-106) 169 MG/DL (74-106) White Blood Count 15.2 K/UL (4.8-10.8) Red Blood Count 3.56 M/UL (4.70-6.10) Hemoglobin 9.0 G/DL (14.2-18.0) Hematocrit 30.2 % (42.0-52.0) Mean Corpuscular Volume 85 FL (80-99) Mean Corpuscular Hemoglobin 25.4 PG (27.0-31.0) Mean Corpuscular Hemoglobin Concent 30.0 G/DL (32.0-36.0) Red Cell Distribution Width 17.7 % (11.6-14.8) Platelet Count 457 K/UL (150-450) Mean Platelet Volume 6.6 FL (6.5-10.1) Neutrophils (%) (Auto) 59.5 % (45.0-75.0) Lymphocytes (%) (Auto) 17.9 % (20.0-45.0) Monocytes (%) (Auto) 7.7 % (1.0-10.0) Eosinophils (%) (Auto) 14.1 % (0.0-3.0) Basophils (%) (Auto) 0.9 % (0.0-2.0) Sodium Level 133 MMOL/L (136-145) Potassium Level 4.5 MMOL/L (3.5-5.1) Chloride Level 95 MMOL/L (98-107) Carbon Dioxide Level 24 MMOL/L (21-32) Anion Gap 14 mmol/L (5-15) Blood Urea Nitrogen 66 mg/dL (7-18) Creatinine 3.5 MG/DL (0.55-1.30) Estimat Glomerular Filtration Rate 17.0 mL/min (>60) Glucose Level 158 MG/DL (74-106) Calcium Level 8.6 MG/DL (8.5-10.1) Test 09/25/19 17:41 09/25/19 23:07 09/26/19 03:00 09/26/19 05:52 POC Whole Blood Glucose 139 MG/DL (74-106) White Blood Count 16.7 K/UL (4.8-10.8) Red Blood Count 3.66 M/UL (4.70-6.10) Hemoglobin 9.3 G/DL (14.2-18.0) Hematocrit 30.6 % (42.0-52.0) Mean Corpuscular Volume 84 FL (80-99) Mean Corpuscular Hemoglobin 25.3 PG (27.0-31.0) Mean Corpuscular Hemoglobin Concent 30.2 G/DL (32.0-36.0) Red Cell Distribution Width 17.3 % (11.6-14.8) Platelet Count 529 K/UL (150-450) Mean Platelet Volume 6.5 FL (6.5-10.1) Neutrophils (%) (Auto) 61.9 % (45.0-75.0) Lymphocytes (%) (Auto) 17.2 % (20.0-45.0) Monocytes (%) (Auto) 8.6 % (1.0-10.0) Eosinophils (%) (Auto) 11.3 % (0.0-3.0) Basophils (%) (Auto) 0.9 % (0.0-2.0) Sodium Level 133 MMOL/L (136-145) Potassium Level 3.8 MMOL/L (3.5-5.1) Chloride Level 95 MMOL/L (98-107) Carbon Dioxide Level 24 MMOL/L (21-32) Anion Gap 14 mmol/L (5-15) Blood Urea Nitrogen 104 mg/dL (7-18) Creatinine 4.5 MG/DL (0.55-1.30) Estimat Glomerular Filtration Rate 12.7 mL/min (>60) Glucose Level 119 MG/DL (74-106) Calcium Level 9.6 MG/DL (8.5-10.1) Test 09/26/19 12:15 09/26/19 18:38 09/27/19 00:07 09/27/19 05:22 POC Whole Blood Glucose 138 MG/DL (74-106) 150 MG/DL (74-106) 167 MG/DL (74-106) 107 MG/DL (74-106) Height (Feet): 5 Height (Inches): 10.00 Weight (Pounds): 122 Objective Physical Exam General Appearance: nad, Chronically Ill Head: normocephalic Eyes: right eye PERRL - Will not open left eye ENT: moist mucus membranes Neck: other - submandibular mass R, fairly rigid with resistance to rotation to L, tracheotomy Respiratory: decreased breath sounds, crackles, other - pacemaker, vent+ Cardiovascular: regular rate, rhythm, edema - anasarca Gastrointestinal: non tender, distended, other - G tube Genitourinary: other Musculoskeletal: other - Contractures all extremities Neurologic: sensory intact, motor weakness, responsive Psychiatric: other Skin: Decubitus/Ulcer - Stage III right elbow, stage III left elbow, stage II sacrum, stage III scrotum, warm/dry Fitz Campos MD Sep 27, 2019 07:11
[2019-09-27 07:56] VITALS: BP_SYST 110; BP_SYST 144; BP_DIAS 40; BP_DIAS 60
--- NOTE | 2019-09-27 08:32 | NUR ---
RD ASSESSMENT & RECOMMENDATIONS SEE CARE ACTIVITY FOR COMPLETE ASSESSMENT DAILY ESTIMATED NEEDS: Needs based on Renal, critical care, wound/ 61kg 22-30 kcals/kg 1675-6212 total kcals 1.25-2 g protein/kg 76-122 g total protein Fluid per MD, now on HD NUTRITION DIAGNOSIS: * Swallowing difficulty R/T respiratory failure, dysphagia as evidenced by trach/vent dep, PEG dep * Increased kcal/prot needs R/T wound healing as evidenced by admitted w/ multiple pressure injuries including full thickness wounds at junction of Shaft of penis, dorsal scrotum, R elbow, and DTPI @ L buttocks. CURRENT TF:Osmolite 1.2 @ 60ml/hr x 20 hrs + Garo BID Now on hold ENTERAL NUTRITION RECOMMENDATIONS: Vital AF 1.2 @ 60ml/hr x 20 hrs to provide 1200ml, 1440kcal, 90g prot, 973ml free water * Rec 20 hr run time for GI rest. Increase TF to goal of 60ml/hr for 20 hrs to meet est needs. -> monitor lytes and renal fxn closely, monitor need for renal TF -> TF @ goal will provide 1642mg K and 2025mg Phos * HOB over 30 degrees/ water flush per MD -------- Trial of Osmolite 1.2 initiated, now on hold Goal of 60ml/hr for 20 hrs (4 hrs bowel rest) to provide 1200ml, 1440 kcal, 67g pro, 984ml free H2O, -> Rec to add prosource 1 pack daily (11g pro) to better meet est pro needs. -> Monitor BG, K closely. Pt would require increased insulin coverage as TF at goal would provide 56g more carbs per day. ------- ADDITIONAL RECOMMENDATIONS: * Per SNF: HT=63" QJ=110 lbs (vs EMR wt of 166lbs) -> obtain re-calibrated bedscale wt, rec daily wt monitoring * Wound healing: con't Nephrovite + Garo BID/ Vit C dosing per Nephro * Monitor renal fxn and lytes closely w/ non-renal TF -> K low, phos wnl; rec updated mag level. * Daily wts w/ drop to 118-20 lbs, rec to recalibrate for accurate CBW * Consider adding anti-diarrheal med +rectal tube-> now on imodium
[2019-09-27] MEDS: Lactobacillus-GG tablet GT SCH ×2 (09:14→17:18)
[2019-09-27] MEDS: Metoprolol Tartrate 100mg tab GT SCH ×2 (09:14→21:00)
[2019-09-27] MEDS: Zinc Oxide Oint 2oz TOPIC SCH ×2 (09:14→18:31)
[2019-09-27] MEDS: Minoxidil 2.5mg tab GT SCH (09:14)
--- NOTE | 2019-09-27 09:24 | General Progress Note ---
Assessment/Plan Assessment/Plan: IMPRESSION: 1. anemia. 2. fevers improved 3. Leukocytosis. 4. hypotension 5. Acute on chronic renal failure. 6. Hyponatremia. 7. Severe protein-calorie malnutrition. 8. Significantly elevated C-reactive protein concerning for infectious etiology. 9. Tracheostomy, G-tube. 10. Ventilator dependence. 11. anasarca 12. Hematuria 13. V pacing PLAN rectal tube lomotil care noted on vent/ no wean monitor labs - still with elevated wbc ID follow up monitor renal function: HD prognosis poor impression, plan, and exam edited and reviewed in detail care discussed with RN Subjective Allergies: Coded Allergies: No Known Allergies (Unverified , 06/10/19) Subjective remains ill on vent/ no change on HD vitals noted diarrhea with rectal tube Objective Last 24 Hour Vital Signs Date Time Temp Pulse Resp B/P (MAP) Pulse Ox O2 Delivery O2 Flow Rate FiO2 09/27/19 09:14 65 144/60 09/27/19 09:14 144/60 09/27/19 07:56 97.7 65 14 144/60 (88) 98 09/27/19 07:04 71 13 24 09/27/19 04:56 58 12 24 09/27/19 04:00 24 09/27/19 04:00 98.8 67 12 121/55 (77) 98 09/27/19 04:00 68 09/27/19 04:00 Mechanical Ventilator 09/27/19 02:54 69 15 24 09/27/19 00:44 69 14 24 09/27/19 00:00 68 09/27/19 00:00 Mechanical Ventilator 09/27/19 00:00 24 09/27/19 00:00 98.4 67 12 105/47 (66) 98 09/26/19 23:07 99.0 09/26/19 22:39 68 12 24 09/26/19 21:04 88 121/56 09/26/19 20:30 84 15 24 09/26/19 20:00 24 09/26/19 20:00 99.7 89 17 121/56 (77) 99 09/26/19 20:00 Mechanical Ventilator 09/26/19 20:00 89 09/26/19 18:43 76 18 24 09/26/19 17:29 79 14 24 09/26/19 16:00 24 09/26/19 16:00 Mechanical Ventilator 09/26/19 16:00 98.1 76 12 116/61 (79) 99 09/26/19 16:00 86 09/26/19 15:10 84 14 24 09/26/19 13:15 81 15 24 09/26/19 12:00 98.6 75 12 127/55 (79) 99 09/26/19 12:00 74 09/26/19 12:00 Mechanical Ventilator 09/26/19 12:00 24 09/26/19 10:40 75 13 24 Intake and Output 09/26/19 09/27/19 19:00 07:00 Intake Total 170 ml 310 ml Output Total 0 ml Balance 170 ml 310 ml Free Water 50 ml 60 ml Tube Feeding 120 ml 250 ml Hemodialysis UF 0 ml # Bowel Movements 1 Laboratory Tests 09/26/19 12:15: POC Whole Blood Glucose 138H 09/26/19 18:38: POC Whole Blood Glucose 150H 09/27/19 00:07: POC Whole Blood Glucose 167H 09/27/19 05:22: POC Whole Blood Glucose 107H Height (Feet): 5 Height (Inches): 10.00 Weight (Pounds): 122 Objective GENERAL: Ill-appearing male, chronically debilitated. HEENT: Tracheostomy in midline. Questionable fullness in the submandibular region. LUNGS: Coarse breath sounds. reduced breath sounds CARDIAC: S1, S2. Regular rate and rhythm. ABDOMEN: Soft. G-tube. EXTREMITIES: With noted edema. NEUROLOGICAL: Poorly responsive, weak diffusely. Kain Ramirez MD Sep 27, 2019 09:24
--- NOTE | 2019-09-27 11:16 | Infectious Diseases Prog Note ---
"Assessment/Plan Assessment/Plan antibiotics : none A 1. acenitobacter | gram negative pneumonia 2. respiratory failure 3. leucocytosis increased 4. COVID 19 test negative x 2 5. renal failure on HD P 1. start inhaled colistin 2. will follow up cultures Subjective ROS Limited/Unobtainable: Yes Allergies: Coded Allergies: No Known Allergies (Unverified , 06/10/19) Objective Last 24 Hour Vital Signs Date Time Temp Pulse Resp B/P (MAP) Pulse Ox O2 Delivery O2 Flow Rate FiO2 09/27/19 09:14 65 144/60 09/27/19 09:14 144/60 09/27/19 09:09 69 12 24 09/27/19 08:00 24 09/27/19 08:00 Mechanical Ventilator 09/27/19 07:57 68 09/27/19 07:56 97.7 65 14 144/60 (88) 98 09/27/19 07:04 71 13 24 09/27/19 04:56 58 12 24 09/27/19 04:00 24 09/27/19 04:00 98.8 67 12 121/55 (77) 98 09/27/19 04:00 68 09/27/19 04:00 Mechanical Ventilator 09/27/19 02:54 69 15 24 09/27/19 00:44 69 14 24 09/27/19 00:00 68 09/27/19 00:00 Mechanical Ventilator 09/27/19 00:00 24 09/27/19 00:00 98.4 67 12 105/47 (66) 98 09/26/19 23:07 99.0 09/26/19 22:39 68 12 24 09/26/19 21:04 88 121/56 09/26/19 20:30 84 15 24 09/26/19 20:00 24 09/26/19 20:00 99.7 89 17 121/56 (77) 99 09/26/19 20:00 Mechanical Ventilator 09/26/19 20:00 89 09/26/19 18:43 76 18 24 09/26/19 17:29 79 14 24 09/26/19 16:00 24 09/26/19 16:00 Mechanical Ventilator 09/26/19 16:00 98.1 76 12 116/61 (79) 99 09/26/19 16:00 86 09/26/19 15:10 84 14 24 8/18/20 13:15 81 15 24 09/26/19 12:00 98.6 75 12 127/55 (79) 99 09/26/19 12:00 74 09/26/19 12:00 Mechanical Ventilator 09/26/19 12:00 24 Height (Feet): 5 Height (Inches): 10.00 Weight (Pounds): 122 Respiratory/Chest: lungs clear Cardiovascular: normal rate, regular rhythm, no gallop/murmur Abdomen: soft, non tender Extremities: no edema, other - right subclavian Laboratory Tests Test 09/26/19 12:15 09/26/19 18:38 09/27/19 00:07 09/27/19 05:22 POC Whole Blood Glucose 138 MG/DL (74-106) H 150 MG/DL (74-106) H 167 MG/DL (74-106) H 107 MG/DL (74-106) H Current Medications Medications (Trade) Dose Ordered Sig/Leonel Route PRN Reason Start Time Stop Time Status Last Admin Dose Admin Acetaminophen (Tylenol) 650 mg Q4H PRN GT Mild Pain (Pain Scale 1-3) 09/21/19 12:45 10/21/19 12:44 09/26/19 22:37 Atorvastatin Calcium (Lipitor) 40 mg BEDTIME GT 08/09/19 21:00 11/07/19 20:59 09/26/19 21:03 Bisacodyl (Dulcolax) 10 mg BID RECTAL 09/27/19 18:00 12/26/19 17:59 Chlorhexidine Gluconate (Felipa-Hex 2%) 1 applic DAILY@1999 TOPIC 09/12/19 20:00 12/11/19 19:59 09/26/19 21:04 Clonidine HCl (Catapres Tab) 0.1 mg Q4H PRN GT For High Blood Pressure 09/09/19 12:30 12/08/19 05:29 09/15/19 04:10 Dextrose (Dextrose 50%) 25 ml Q30M PRN IV Hypoglycemia 08/09/19 07:30 11/07/19 07:29 Dextrose (Dextrose 50%) 50 ml Q30M PRN IV Hypoglycemia 08/09/19 07:30 11/07/19 07:29 Diphenoxylate HCl/ Atropine (Lomotil) 2.5 mg QID PRN ORAL Diarrhea 09/24/19 08:45 10/24/19 08:44 Epoetin Andreas (Epoetin Andreas(ESRD on dialysis)) 10,000 unit WED-WED-WED SUBQ 09/20/19 21:00 12/19/19 20:59 09/25/19 20:18 Famotidine (Pepcid) 20 mg DAILY GT 08/30/19 09:00 11/28/19 08:59 09/27/19 09:14 Insulin Aspart (NovoLOG) Q6HR SUBQ 09/25/19 18:00 11/07/19 11:29 09/27/19 00:15 Lactobacillus Acidophilus (Culturelle) 1 tab TWICE A DAY GT 09/14/19 18:00 12/13/19 17:59 09/27/19 09:14 Metoprolol Tartrate (Lopressor) 200 mg Q12HR GT 08/09/19 09:00 11/07/19 08:59 09/27/19 09:14 Minoxidil (Loniten) 5 mg DAILY GT 08/09/19 09:00 11/07/19 08:59 09/27/19 09:14 Zinc Oxide (Zinc Oxide) 1 applic BID TOPIC 08/10/19 18:00 11/08/19 17:59 09/27/19 09:14 Farnaz Lyle MD Sep 27, 2019 11:16"
[2019-09-27 11:59] VITALS: BP 123/56
--- NOTE | 2019-09-27 13:17 | Surgery Progress Note ---
Surgery Progress Note Subjective Procedure Performed Right femoral temporary hemodialysis catheter removal Additional Comments no acute events comfortable labs stable exam unchanged tolerating tf Objective Last 24 Hour Vital Signs Date Time Temp Pulse Resp B/P (MAP) Pulse Ox O2 Delivery O2 Flow Rate FiO2 09/27/19 13:02 63 12 24 09/27/19 12:00 24 09/27/19 12:00 Mechanical Ventilator 09/27/19 12:00 60 09/27/19 11:59 98.2 61 13 123/56 (78) 100 09/27/19 11:01 68 12 24 09/27/19 09:14 65 144/60 09/27/19 09:14 144/60 09/27/19 09:09 69 12 24 09/27/19 08:00 24 09/27/19 08:00 Mechanical Ventilator 09/27/19 07:57 68 09/27/19 07:56 97.7 65 14 144/60 (88) 98 09/27/19 07:04 71 13 24 09/27/19 04:56 58 12 24 09/27/19 04:00 24 09/27/19 04:00 98.8 67 12 121/55 (77) 98 09/27/19 04:00 68 09/27/19 04:00 Mechanical Ventilator 09/27/19 02:54 69 15 24 09/27/19 00:44 69 14 24 09/27/19 00:00 68 09/27/19 00:00 Mechanical Ventilator 09/27/19 00:00 24 09/27/19 00:00 98.4 67 12 105/47 (66) 98 09/26/19 23:07 99.0 09/26/19 22:39 68 12 24 09/26/19 21:04 88 121/56 09/26/19 20:30 84 15 24 09/26/19 20:00 24 09/26/19 20:00 99.7 89 17 121/56 (77) 99 09/26/19 20:00 Mechanical Ventilator 09/26/19 20:00 89 09/26/19 18:43 76 18 24 09/26/19 17:29 79 14 24 09/26/19 16:00 24 09/26/19 16:00 Mechanical Ventilator 09/26/19 16:00 98.1 76 12 116/61 (79) 99 09/26/19 16:00 86 09/26/19 15:10 84 14 24 I&O Intake and Output 09/26/19 09/27/19 19:00 07:00 Intake Total 170 ml 310 ml Output Total 0 ml Balance 170 ml 310 ml Free Water 50 ml 60 ml Tube Feeding 120 ml 250 ml Hemodialysis UF 0 ml # Bowel Movements 1 Dressing: other Wound: other Drains: other Cardiovascular: RSR Respiratory: decreased breath sounds Abdomen: soft, non-tender, present bowel sounds Extremities: no edema, no cyanosis Laboratory Tests Test 09/26/19 18:38 09/27/19 00:07 09/27/19 05:22 POC Whole Blood Glucose 150 MG/DL (74-106) H 167 MG/DL (74-106) H 107 MG/DL (74-106) H Plan Problems: (1) Anemia (2) Hyponatremia (3) Leukocytosis Assessment & Plan: Tracheostomy, left chest pacemaker are again demonstrated. There is bilateral interstitial and airspace disease and bilateral pleural fluid again demonstrated. This appears more severe than on the prior study. Bilateral interstitial and airspace infiltrates versus edema. Bilateral pleural effusions Leukocytosis, anemia, tachycardia, abnormal labs. Wound evaluated and likely etiology of patient's sepsis. Leukocytosis etiology work-up antibiotics per infectious disease Appreciate nephrology input transfuse with dialysis We will follow with recommendations thank you allowing participation's care plan HD access temp HD discussed with medical teams line okay HD as per renal persistent leukocytosis flow cyto noted improving trending down right fem line removed (4) Ventilator dependent (5) Right lower lobe pneumonia (6) Hypokalemia (7) Hyperkalemia (8) Anasarca (9) Decubitus skin ulcer Assessment & Plan: pt presented on admission with generalized edemae.Skin assessed under tracheostomy and no areas of concerns noted. GT Insertion is marginally erythematous with small amt slough at stoma. Unstageable Pressure Injury R elbow. Base of wound is 100% yellow slough, Borders are erythematous. Wound oozing small amt haemopurulent exudate.Darker skin tone without elevation in skin temp or erythema periwound. Pt's penis and scrotum are grossly edematous and enlarged and weeping serous exudate from numerous sites both from penis and scrotum. Two small open wounds noted at base of at base of shaft of penis ,and contreras aspect of scrotum. Both wounds oozing large amt sanguineous and serosanguineous exudate. Multiple open wounds with Biofilm at base of each wounds noted to contreras/lateral,inferior and posterior aspects of scrotum. These wounds noted to be oozing moderate amts of serosanguineous exudate. Hypertrophic scar with scattered areas of hyperpigmentation noted to Sacrum. DTPI noted to L Buttocks (L)7cm x (W)9cm. Base of wound is purple and indurated.Darker skin tone without erythema, induration or fluctuance R and L ischial tuberosities. Both heels are boggy with non-blanchable erythema. Tx.Plan: Cleanse wound R elbow with Saline. Apply TheraHoney, Apply Moisture Barrier Paste periwound. Cover with Optifoam drsg.Change Daily and prn. Wash GT site with soap and water.Pat dry. Apply Zinc Oxide Paste to GT site Daily. Leave Open to Air. Apply Zinc Oxide Paste to entire Scrotum, Place ABD pads to R and L lateral, and posterior aspects of scrotum TWICE daily. Apply Cavilon Skin Barrier to malleoli and both Heels. Cover each site with Optifoam drsgs. Change every 7 days and prn. Reposition at least every 2hours or as tolerated. Off-load heels with Pillows. APM/BECCA Mattress overlay. (10) Malnutrition Assessment & Plan: DAILY ESTIMATED NEEDS: Needs based on Renal, critical care, wound/ 61kg 22-30 kcals/kg [id number] total kcals 1.25-2 g protein/kg 76-122 g total protein Fluid per MD, now on HD NUTRITION DIAGNOSIS: * Swallowing difficulty R/T respiratory failure, dysphagia as evidenced by trach/vent dep, PEG dep * Increased kcal/prot needs R/T wound healing as evidenced by admitted w/ multiple pressure injuries including full thickness wounds at junction of Shaft of penis, dorsal scrotum, R elbow, and DTPI @ L buttocks. CURRENT TF:Vital AF 1.2 @ 50ml/hr x 24 hrs + Garo BID ENTERAL NUTRITION RECOMMENDATIONS: Vital AF 1.2 @ 60ml/hr x 20 hrs to provide 1200ml, 1440kcal, 90g prot, 973ml free water * Rec 20 hr run time for GI rest. Increase TF to goal of 60ml/hr for 20 hrs to meet est needs. -> monitor lytes and renal fxn closely, monitor need for renal TF -> TF @ goal will provide 1642mg K and 2025mg Phos * HOB over 30 degrees/ water flush per MD -------- Pt continues to have loose stool, rectal tube. Trial of Osmolite 1.2 w/ goal of 60ml/hr for 20 hrs (4 hrs bowel rest) to provide 1200ml, 1440 kcal, 67g pro, 984ml free H2O, -> Rec to add prosource 1 pack daily (11g pro) to better meet est pro needs. -> Monitor BG, K closely. Pt would require increased insulin coverage as TF at goal would provide 56g more carbs per day. ------- ADDITIONAL RECOMMENDATIONS: * Per SNF: HT=63" LR=261 lbs (vs EMR wt of 166lbs) -> obtain re-calibrated bedscale wt, rec daily wt monitoring * Wound healing: con't Nephrovite + Garo BID/ Vit C dosing per Nephro * Monitor renal fxn and lytes closely w/ non-renal TF -> K low, phos wnl; rec updated mag level. * Daily wts w/ drop to 118-20 lbs, rec to recalibrate for accurate CBW * Consider adding anti-diarrheal med +rectal tube-> now on imodium (11) Uremia (12) CKD (chronic kidney disease) stage 5, GFR less than 15 ml/min (13) Colon distention Assessment & Plan: discussed with GI likely functional as having lots of loose bm rectal tube kub f/u s/p colonoscopy - findings reviewed with GI Marked distention of the sigmoid colon. 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 No evidence of bowel wall thickening or pneumatosis 12 mm focus of contrast enhancement in the right pectineus muscle. While nonspecific in appearance, appearance raises concern for a possible pseudoaneurysm. Ill- defined thickening of the pectus medius muscle could indicate some intramuscular hemorrhage. The above findings were phoned to Dr. Urias at the time of interpretation Large bilateral pleural effusions Hazy pulmonary parenchymal opacities as well as dense consolidative opacities most likely represent pulmonary edema, but could represent pneumonia Evidence of anasarca elsewhere, with generalized edema of the subcutaneous fat Bladder wall thickening, raises concern for cystitis. Avalos catheter in place Colonic diverticulosis. No evidence of diverticulitis. Tracheostomy Pacemaker Gastrostomy Jonathan Urias Sep 27, 2019 13:17
--- NOTE | 2019-09-27 15:03 | NUR ---
CASE MANAGEMENT: REVIEW SI: ESRD on HD . CHRONIC LEUKOCYTOSIS T 98.4 HR 68 RR 12 BP 105/47 SAT 98% MECH VENT FIO2 24 WBC 16.7 H/H 9.3/30.6 IS: COLISTIN INH Q12HR EPOETIN SUBQ QMWF HEPARIN IV PRN HD NOVOLOG SUBQ Q6HR HD NEEDED STEP DOWN UNIT STATUS DCP: PATIENT HAS BEEN ACCEPTED TO [facility]; WITH OUTPATIENT HD AT [facility] PENDING [facility] PATIENT HAS BEEN ACCEPTED TO [facility]; PENDING WBC WITHIN NORMAL LIMITS
--- NOTE | 2019-09-27 15:06 | NUR ---
INSURANCE REVIEW AND PROGRESS NOTES FAXED TO [facility] REF# [id number] RUSSELLM:HARPER P:[phone] F:[phone]
[2019-09-27 16:00] VITALS: BP 106/51
--- NOTE | 2019-09-27 16:29 | NUR ---
NURSE NOTES: Given Ducolax scheduled at 1800 [address] at [address] Mustafa's order. D/t early medication administration.
--- NOTE | 2019-09-27 17:28 | General Progress Note ---
Assessment/Plan Assessment/Plan: Assessment - abdominal distention, due to colonic dysmotility, - colonoscopy negative to hepatic flexure - diarrhea - presumed TF related - abnormal LFT - Anemia - leukocytosis - stool OB (+) - EGD --> gastritis - Renal failure - Anasarca - resp failure, trach - dysphagia, GT - encephalopathy, contracted - poor px Recommendations - BID rectal disimpaction and suppository trial - roll side to side as feasible (hard due to severe contractions) - Elevate HOB - f/u labs - PPI - abx - supportive care Subjective Allergies: Coded Allergies: No Known Allergies (Unverified , 06/10/19) Subjective Above noted d/w RN off of feeds rectal tube yesterday ineffective gave orders for BID dulcolax and digital rectal stimulation Objective Last 24 Hour Vital Signs Date Time Temp Pulse Resp B/P (MAP) Pulse Ox O2 Delivery O2 Flow Rate FiO2 09/27/19 17:12 69 16 24 09/27/19 16:00 63 09/27/19 16:00 98.9 66 14 106/51 (69) 100 09/27/19 16:00 Mechanical Ventilator 09/27/19 16:00 24 09/27/19 14:48 66 17 24 09/27/19 13:02 63 12 24 09/27/19 12:00 24 09/27/19 12:00 Mechanical Ventilator 09/27/19 12:00 60 09/27/19 11:59 98.2 61 13 123/56 (78) 100 09/27/19 11:01 68 12 24 09/27/19 09:14 65 144/60 09/27/19 09:14 144/60 09/27/19 09:09 69 12 24 09/27/19 08:00 24 09/27/19 08:00 Mechanical Ventilator 09/27/19 07:57 68 09/27/19 07:56 97.7 65 14 144/60 (88) 98 09/27/19 07:04 71 13 24 09/27/19 04:56 58 12 24 09/27/19 04:00 24 09/27/19 04:00 98.8 67 12 121/55 (77) 98 09/27/19 04:00 68 09/27/19 04:00 Mechanical Ventilator 09/27/19 02:54 69 15 24 09/27/19 00:44 69 14 24 09/27/19 00:00 68 09/27/19 00:00 Mechanical Ventilator 09/27/19 00:00 24 09/27/19 00:00 98.4 67 12 105/47 (66) 98 09/26/19 23:07 99.0 09/26/19 22:39 68 12 24 09/26/19 21:04 88 121/56 09/26/19 20:30 84 15 24 09/26/19 20:00 24 09/26/19 20:00 99.7 89 17 121/56 (77) 99 09/26/19 20:00 Mechanical Ventilator 09/26/19 20:00 89 09/26/19 18:43 76 18 24 09/26/19 17:29 79 14 24 Intake and Output 09/26/19 09/27/19 19:00 07:00 Intake Total 170 ml 310 ml Output Total 0 ml Balance 170 ml 310 ml Free Water 50 ml 60 ml Tube Feeding 120 ml 250 ml Hemodialysis UF 0 ml # Bowel Movements 1 Laboratory Tests 09/26/19 18:38: POC Whole Blood Glucose 150H 09/27/19 00:07: POC Whole Blood Glucose 167H 09/27/19 05:22: POC Whole Blood Glucose 107H 09/27/19 17:15: POC Whole Blood Glucose 146H Height (Feet): 5 Height (Inches): 10.00 Weight (Pounds): 122 Objective Debilitated AA man NCAT (+) trach coarse BS RR abd (++) distended, anasarca, (+) GT ext (+) edema contracted Ronny Mustafa MD Sep 27, 2019 17:28
--- NOTE | 2019-09-27 17:49 | NUR ---
NURSE NOTES: Patient has not been passing gas, no flatus, abdomen massage given; still no bowel movement noted. Will continue to monitor.
--- NOTE | 2019-09-27 18:46 | NUR ---
NURSE NOTES: Dialysis nurse informed nurse that she spoke with Dr. Leonard herself regarding dialysis schedule tomorrow 09/27. MD will put schedule himself. Will endorsed to receiving nurse.
--- NOTE | 2019-09-27 18:54 | Nephrology Progress Note ---
Assessment/Plan Plan MOF Established ESRD - HD now TTS. Anemia of CKD -TUYET. Subjective Subjective Obtunded. Objective Objective Last 24 Hour Vital Signs Date Time Temp Pulse Resp B/P (MAP) Pulse Ox O2 Delivery O2 Flow Rate FiO2 09/27/19 17:12 69 16 24 09/27/19 16:00 63 09/27/19 16:00 98.9 66 14 106/51 (69) 100 09/27/19 16:00 Mechanical Ventilator 09/27/19 16:00 24 09/27/19 14:48 66 17 24 09/27/19 13:02 63 12 24 09/27/19 12:00 24 09/27/19 12:00 Mechanical Ventilator 09/27/19 12:00 60 09/27/19 11:59 98.2 61 13 123/56 (78) 100 09/27/19 11:01 68 12 24 09/27/19 09:14 65 144/60 09/27/19 09:14 144/60 09/27/19 09:09 69 12 24 09/27/19 08:00 24 09/27/19 08:00 Mechanical Ventilator 09/27/19 07:57 68 09/27/19 07:56 97.7 65 14 144/60 (88) 98 09/27/19 07:04 71 13 24 09/27/19 04:56 58 12 24 09/27/19 04:00 24 09/27/19 04:00 98.8 67 12 121/55 (77) 98 09/27/19 04:00 68 09/27/19 04:00 Mechanical Ventilator 09/27/19 02:54 69 15 24 09/27/19 00:44 69 14 24 09/27/19 00:00 68 09/27/19 00:00 Mechanical Ventilator 09/27/19 00:00 24 09/27/19 00:00 98.4 67 12 105/47 (66) 98 09/26/19 23:07 99.0 09/26/19 22:39 68 12 24 09/26/19 21:04 88 121/56 09/26/19 20:30 84 15 24 09/26/19 20:00 24 09/26/19 20:00 99.7 89 17 121/56 (77) 99 09/26/19 20:00 Mechanical Ventilator 09/26/19 20:00 89 Intake and Output 8/18/20 8/19/20 19:00 07:00 Intake Total 170 ml 310 ml Output Total 0 ml Balance 170 ml 310 ml Free Water 50 ml 60 ml Tube Feeding 120 ml 250 ml Hemodialysis UF 0 ml # Bowel Movements 1 Laboratory Tests 09/27/19 00:07: POC Whole Blood Glucose 167H 09/27/19 05:22: POC Whole Blood Glucose 107H 09/27/19 17:15: POC Whole Blood Glucose 146H Height (Feet): 5 Height (Inches): 10.00 Weight (Pounds): 122 Objective CV RR Trach clean Lungs CTA New Perma Cath RIJ. Abd SNT. BS + E No CCE Erica Pichardo MD Sep 27, 2019 18:54
--- NOTE | 2019-09-27 19:07 | NUR ---
NURSE HAND-OFF REPORT: Important Events on Shift: Patient has not pass preethi, no bowel movement, bowel distended, Dr. Mustafa aware. Patient Status: Poor Diet: NPO Pending Orders: N/A Pending Results/Labs: AM lab Pending MD notification: N/A Latest Vital Signs: Temperature 98.9 , Pulse 71 , B/P 106 /51 , Respiratory Rate 14 , O2 SAT 100 , Mechanical Ventilator, O2 Flow Rate 15.0 . Vital Sign Comment: EKG Rhythm: V-Paced Rhythm change?: N MD Notified?: N - MD Response: Latest Delacruz Fall Score: 70 Fall Risk: High Risk Safety Measures: Call light Within Reach, Bed Alarm Zone 1, Side Rails Side Rails x3, Bed position Low and Locked. Fall Precautions: Yellow Socks Yellow Gown Door Sign Patient Fall Education Report given to TAMICA Duenas
[2019-09-27 20:00] VITALS: BP 120/50
--- NOTE | 2019-09-27 20:00 | NUR ---
NURSE NOTES: NURSE NOTES: SBAR from TAMICA Miranda. Patient's in stable condition, obtunded, no s/s of distress or SOB, no s/s of pain using FLACC score, comfortable. HOB > 30, bed low and locked, call light within reach, side rails x 3. Vent/ Trach present: Portex 8, AC 18, TV 550, FiO2 24%, Peeps 5. GT noted feeds resumed, at lower rate. abdomen slightly tender. IV LFA 20g noted, patent and flushed, asymptomatic. Right subclavian tunnelcath noted, no s/s of bleeding, dressing intact, flushed well, blood return noted. Wound assessment performed. Will continue to monitor.
[2019-09-27] MEDS: Epoetin Alfa-EPBX(ESRD on dialysis)10,000 unit/ml vial SUBQ SCH (21:00)
[2019-09-27] MEDS: Dyna-Hex 2% Top Sol 2oz TOPIC SCH (21:00)
[2019-09-27] MEDS: Atorvastatin 20mg tab GT SCH (21:00)
[2019-09-27] MEDS: Colistin for inhalation INH SCH (22:30)
[2019-09-28] VITALS: BP 109/48
--- NOTE | 2019-09-28 | NUR ---
NURSE NOTES: Patient had moderate soft bowel movement. Patient given sponge bath and new linen applied. Abdomen still remains slightly distended. Feeds at 25ml/hr for now and lower rate. Repositioned side to side to help with GI motility.Will continue to monitor. Vitals are stable/
[2019-09-28 04:00] VITALS: BP 129/68
--- NOTE | 2019-09-28 04:00 | NUR ---
NURSE NOTES: Sponge bath given. Patient has softer diarrhea at this time, rectal tube inserted and sponge bath given. NAD at this time, Repositioned and oral care provided, labs drawn and taken by office messenger. Blood pressures are stable, pulses noted. No acute changes at this time.
[2019-09-28 05:24] LABS: BASOPHILS % (AUTO) 1.1 % (0.0-2.0); EOSINOPHILS % (AUTO) 12.5 % (0.0-3.0); HEMATOCRIT 29.8 % (42.0-52.0); HEMOGLOBIN 8.9 G/DL (14.2-18.0); LYMPHOCYTES % (AUTO) 18.6 % (20.0-45.0); MEAN CORPUSCULAR VOLUME 83 FL (80-99); MONOCYTES % (AUTO) 8.7 % (1.0-10.0); NEUTROPHILS % (AUTO) 59.1 % (45.0-75.0); PLATELET COUNT 506 K/UL (150-450); RED BLOOD COUNT 3.58 M/UL (4.70-6.10); RED CELL DISTRIBUTION WIDTH 17.2 % (11.6-14.8); WHITE BLOOD COUNT 14.3 K/UL (4.8-10.8)
[2019-09-28 05:28] LABS: ANION GAP 10 mmol/L (5-15); BLOOD UREA NITROGEN 73 mg/dL (7-18); CALCIUM 8.8 MG/DL (8.5-10.1); CARBON DIOXIDE 24 MMOL/L (21-32); CHLORIDE 94 MMOL/L (98-107); CREATININE 3.8 MG/DL (0.55-1.30); POTASSIUM 3.8 MMOL/L (3.5-5.1); SODIUM 128 MMOL/L (136-145)
[2019-09-28] MEDS: NovoLOG Insulin Flexpen SUBQ SCH ×5 (05:43→23:25)
--- NOTE | 2019-09-28 06:00 | NUR ---
NURSE NOTES: Repositioned patient, morning meds given, oral care performed, suctioned patient. Remains slightly agitated. No change in mentation.
--- NOTE | 2019-09-28 06:57 | Hematology/Onc Progress Note ---
Assessment/Plan Assessment/Plan Assessment/recs # Leukocytosis - with multiple infections, VRE UTI, flow is negative --> wbc trend 33-->28-->25->23->22->23->24->17.3-->17-->14->16-->15.6-->14-->14- >13->19->18->17->22->22->19->17-->18->20-->15-->14 --> on abx, linezolid and zosyn--> zosyn-->gent-->off --> + blood cultures with coag neg staph likely contaminated --> as per id recs --> has ordered a flow cytometry (with pathology) --> does show increased nK cell activity --> JOURDAN 2 and bcr-abl labs ordered (these are send outs) --> plt 585-->613-->649-->669->663-->529 # Anemia due to chronic disease/kidney disease as well, gi bleed + occult + noted --> was on iron in the past, now on hold --> has been started on Epogen sq --> as per renal care --> egd done and shows gastritis --> on ppi --> egd showed gastritis, colo recently done --> hgb 9-->8.7-->7.6-->9.2-->8.9-->9.2->9.3-->8.8->9.9-->9.2-->8.1-->8.7-->7.9- ->8.6-->8.9-->8.2->9-->9.3->8.9 # Respiratory failure --> per pulm, s/p trach --> COVID 19 test negative x 2 # Hyperlipidemia --> statin po # Dysphagia s/p gtube with nepro --> per gi # ESRD with r fem julito --> hd as per renal # Dvt ppx scds Appreciate consultation and matt Rn Subjective HEENT: Denies: no symptoms, eye pain, blurred vision, tearing, double vision, ear pain, ear discharge, nose pain, nose congestion, throat pain, throat swelling, mouth pain, mouth swelling, other Cardiovascular: Denies: no symptoms, chest pain, edema, irregular heart rate, lightheadedness, palpitations, syncope, other Respiratory: Denies: no symptoms, cough, shortness of breath, SOB with excertion, SOB at rest, sputum, wheezing, other Gastrointestinal/Abdominal: Denies: no symptoms, abdomen distended, abdominal pain, black stools, tarry stools, blood in stool, constipated, diarrhea, difficulty swallowing, nausea, poor appetite, poor fluid intake, rectal bleeding , vomiting, other Neurologic/Psychiatric: Denies: no symptoms, anxiety, depressed, emotional problems, headache, numbness, paresthesia, pre-existing deficit, seizure, tingling, tremors, weakness, other Endocrine: Denies: no symptoms, excessive sweating, flushing, intolerance to cold, intolerance to heat, increased hunger, increased thirst, increased urine, unexplained weight gain, unexplained weight loss, other Allergies: Coded Allergies: No Known Allergies (Unverified , 06/10/19) Subjective 08/15 meds noted, no bleeding, hgb 8.8, wbc 28, path flow pending 08/16 flow pending dw pathologist, results pending, wbc 25, hgb 9 08/17 labs reviewed, meds reviewed, meds noted, no night sweats 08/19 remains obtunded, on vent/trach, no bleeding wbc 21.7 08/20 labs have been reviewed, no bleeding, wbc still elev, path reviewed 08/21 labs are noted, no bleeding, on vent, wbc better 08/22 labs noted, no bleeding, meds reviewed, wbc 24 hgb 7.6 08/23 vent, off abx, c diff negative, h/h stable 08/24 labs reviewed, on abx, wbc 17, hgb 8.9, no hemolysis 08/26 reviewed flow and is negative for leukemia, matt rn 08/27 meds reviewed, no night sweats, matt rn, no major bleeding 08/28 meds reivewed, labs noted 08/29 wbc is stable, approx 15, hgb 8.8, no hemolysis 08/30 labs are noted, is for colo today, hgb 9.9 08/31 right fem julito in place, unchanged, hgb 9.2, gi aware 09/01 labs noted, hgb 8.8, plt >600, no bleeding 09/02 labs noted, no bleeding, with elev wbc still, no new changes 09/03 meds are noted, no bleeding, labs reviewed hgb 8.6 09/04 no major events, hd as per renal, abx, no bleeding hgb low 09/05 labs are noted, no bleeding, meds have been reviewed 09/06 no new labs no hemolysis, cbc is noted, no bleeding 09/07 meds reviewed, no bleeding, matt rn, permacath functioning well 09/09 meds reviewed, wbc still elevated, as per id recs, cbc noted 09/10 is obtunded, with gutbe in place, labs reviewed 09/11 obtunded, as per id, observe now off abx, labs noted, wbc 19 09/12 cbc is pending, remains on epogen, also off abx 09/13 labs reviewed, no bleeding, elev wbc, no night sweats 09/14 meds noted, no bleeding, wbc 19, hgb 9.5, no night sweats 09/21 obtunded, remains on vent, labs noted, no bleeding, hgb 8.9 09/22 obtunded, labs noted, no bleeding, on vent, unchanged 09/23 unchanges, wbc remains elevated 20k, on abx, on vent 09/24 labs have been reviewed, no bleeding, wbc 15, may need abx 09/25 formula gtube changed, labs noted, remains obtunded, hgb 9.3 09/26 labs have been reviewed, no bleeding, matt rn, no night sweats 09/27 meds reviewed, no bleeding, wbc 14, on abx, remains obtunded Objective Objective Current Medications Medications (Trade) Dose Ordered Sig/Leonel Route PRN Reason Start Time Stop Time Status Last Admin Dose Admin Acetaminophen (Tylenol) 650 mg Q4H PRN GT Mild Pain (Pain Scale 1-3) 09/21/19 12:45 10/21/19 12:44 09/26/19 22:37 Atorvastatin Calcium (Lipitor) 40 mg BEDTIME GT 08/09/19 21:00 11/07/19 20:59 09/27/19 21:00 Bisacodyl (Dulcolax) 10 mg BID RECTAL 09/27/19 18:00 12/26/19 17:59 09/27/19 16:28 Chlorhexidine Gluconate (Felipa-Hex 2%) 1 applic DAILY@1999 TOPIC 09/12/19 20:00 12/11/19 19:59 09/27/19 21:00 Clonidine HCl (Catapres Tab) 0.1 mg Q4H PRN GT For High Blood Pressure 09/09/19 12:30 12/08/19 05:29 09/15/19 04:10 Colistimethate Sodium (Colistin *inhalation use only*) 75 mg Q12HR@ INH 09/27/19 22:00 10/04/19 21:59 09/27/19 22:30 Dextrose (Dextrose 50%) 25 ml Q30M PRN IV Hypoglycemia 08/09/19 07:30 11/07/19 07:29 Dextrose (Dextrose 50%) 50 ml Q30M PRN IV Hypoglycemia 08/09/19 07:30 11/07/19 07:29 Diphenoxylate HCl/ Atropine (Lomotil) 2.5 mg QID PRN ORAL Diarrhea 09/24/19 08:45 10/24/19 08:44 Epoetin Andreas (Epoetin Andreas(ESRD on dialysis)) 10,000 unit WED-WED-WED SUBQ 09/20/19 21:00 12/19/19 20:59 09/27/19 21:00 Famotidine (Pepcid) 20 mg DAILY GT 08/30/19 09:00 11/28/19 08:59 09/27/19 09:14 Heparin Sodium (Porcine) (Heparin Sod 1000 units/ml 10ml) 2,000 unit ONCE PRN IV HD USE 09/28/19 08:00 09/28/19 23:59 Heparin Sodium (Porcine) (Heparin) 1,000 unit POSTHD PRN INJ HD USE 09/28/19 08:00 09/28/19 23:59 Insulin Aspart (NovoLOG) Q6HR SUBQ 09/25/19 18:00 11/07/19 11:29 09/28/19 05:43 Lactobacillus Acidophilus (Culturelle) 1 tab TWICE A DAY GT 09/14/19 18:00 11/4/20 17:59 09/27/19 17:18 Metoprolol Tartrate (Lopressor) 200 mg Q12HR GT 08/09/19 09:00 11/07/19 08:59 09/27/19 21:00 Minoxidil (Loniten) 5 mg DAILY GT 08/09/19 09:00 11/07/19 08:59 09/27/19 09:14 Sodium Chloride 1,000 ml @ 500 mls/hr Q2H PRN IVLG sbp<90 during hd 09/28/19 08:00 09/28/19 23:59 Zinc Oxide (Zinc Oxide) 1 applic BID TOPIC 08/10/19 18:00 11/08/19 17:59 09/27/19 18:31 Last 24 Hour Vital Signs Date Time Temp Pulse Resp B/P (MAP) Pulse Ox O2 Delivery O2 Flow Rate FiO2 09/28/19 05:15 72 14 24 09/28/19 04:00 63 09/28/19 04:00 Mechanical Ventilator 09/28/19 04:00 24 09/28/19 04:00 98.2 64 22 129/68 (88) 99 09/28/19 03:10 64 13 24 09/28/19 01:30 70 13 24 09/28/19 00:00 Mechanical Ventilator 09/28/19 00:00 98.1 64 12 109/48 (68) 99 09/28/19 00:00 64 09/27/19 22:30 63 12 99 Mechanical Ventilator 24 66 12 24 09/27/19 21:00 71 120/50 09/27/19 20:48 71 14 24 09/27/19 20:00 73 09/27/19 20:00 98.1 72 15 120/50 (73) 97 09/27/19 20:00 Mechanical Ventilator 09/27/19 20:00 24 09/27/19 19:04 71 14 24 09/27/19 17:12 69 16 24 09/27/19 16:00 63 09/27/19 16:00 98.9 66 14 106/51 (69) 100 09/27/19 16:00 Mechanical Ventilator 09/27/19 16:00 24 09/27/19 14:48 66 17 24 09/27/19 13:02 63 12 24 09/27/19 12:00 24 09/27/19 12:00 Mechanical Ventilator 09/27/19 12:00 60 09/27/19 11:59 98.2 61 13 123/56 (78) 100 09/27/19 11:01 68 12 24 09/27/19 09:14 65 144/60 09/27/19 09:14 144/60 09/27/19 09:09 69 12 24 09/27/19 08:00 24 09/27/19 08:00 Mechanical Ventilator 09/27/19 07:57 68 09/27/19 07:56 97.7 65 14 144/60 (88) 98 09/27/19 07:04 71 13 24 09/27/19 04:56 58 12 24 09/27/19 04:00 24 09/27/19 04:00 98.8 67 12 121/55 (77) 98 09/27/19 04:00 68 09/27/19 04:00 Mechanical Ventilator 09/27/19 02:54 69 15 24 09/27/19 00:44 69 14 24 09/27/19 00:00 68 09/27/19 00:00 Mechanical Ventilator 09/27/19 00:00 24 09/27/19 00:00 98.4 67 12 105/47 (66) 98 09/26/19 23:07 99.0 09/26/19 22:39 68 12 24 09/26/19 21:04 88 121/56 09/26/19 20:30 84 15 24 09/26/19 20:00 24 09/26/19 20:00 99.7 89 17 121/56 (77) 99 09/26/19 20:00 Mechanical Ventilator 09/26/19 20:00 89 09/26/19 18:43 76 18 24 09/26/19 17:29 79 14 24 09/26/19 16:00 24 09/26/19 16:00 Mechanical Ventilator 09/26/19 16:00 98.1 76 12 116/61 (79) 99 09/26/19 16:00 86 09/26/19 15:10 84 14 24 09/26/19 13:15 81 15 24 09/26/19 12:00 98.6 75 12 127/55 (79) 99 09/26/19 12:00 74 09/26/19 12:00 Mechanical Ventilator 09/26/19 12:00 24 09/26/19 10:40 75 13 24 09/26/19 09:10 74 12 24 09/26/19 09:00 72 138/64 09/26/19 09:00 138/64 09/26/19 08:00 Mechanical Ventilator 09/26/19 08:00 98.8 71 12 137/68 (91) 99 09/26/19 08:00 72 09/26/19 08:00 24 Intake and Output 09/27/19 09/28/19 19:00 07:00 Intake Total 25 ml 255 ml Balance 25 ml 255 ml Free Water 30 ml Tube Feeding 25 ml 225 ml # Bowel Movements 1 Labs Test 09/25/19 13:00 09/25/19 17:41 09/25/19 23:07 09/26/19 03:00 POC Whole Blood Glucose 169 MG/DL (74-106) 139 MG/DL (74-106) White Blood Count 16.7 K/UL (4.8-10.8) Red Blood Count 3.66 M/UL (4.70-6.10) Hemoglobin 9.3 G/DL (14.2-18.0) Hematocrit 30.6 % (42.0-52.0) Mean Corpuscular Volume 84 FL (80-99) Mean Corpuscular Hemoglobin 25.3 PG (27.0-31.0) Mean Corpuscular Hemoglobin Concent 30.2 G/DL (32.0-36.0) Red Cell Distribution Width 17.3 % (11.6-14.8) Platelet Count 529 K/UL (150-450) Mean Platelet Volume 6.5 FL (6.5-10.1) Neutrophils (%) (Auto) 61.9 % (45.0-75.0) Lymphocytes (%) (Auto) 17.2 % (20.0-45.0) Monocytes (%) (Auto) 8.6 % (1.0-10.0) Eosinophils (%) (Auto) 11.3 % (0.0-3.0) Basophils (%) (Auto) 0.9 % (0.0-2.0) Sodium Level 133 MMOL/L (136-145) Potassium Level 3.8 MMOL/L (3.5-5.1) Chloride Level 95 MMOL/L (98-107) Carbon Dioxide Level 24 MMOL/L (21-32) Anion Gap 14 mmol/L (5-15) Blood Urea Nitrogen 104 mg/dL (7-18) Creatinine 4.5 MG/DL (0.55-1.30) Estimat Glomerular Filtration Rate 12.7 mL/min (>60) Glucose Level 119 MG/DL (74-106) Calcium Level 9.6 MG/DL (8.5-10.1) Test 09/26/19 05:52 09/26/19 12:15 09/26/19 18:38 09/27/19 00:07 POC Whole Blood Glucose 138 MG/DL (74-106) 150 MG/DL (74-106) 167 MG/DL (74-106) Test 09/27/19 05:22 09/27/19 17:15 09/28/19 00:53 09/28/19 04:00 POC Whole Blood Glucose 107 MG/DL (74-106) 146 MG/DL (74-106) 147 MG/DL (74-106) White Blood Count 14.3 K/UL (4.8-10.8) Red Blood Count 3.58 M/UL (4.70-6.10) Hemoglobin 8.9 G/DL (14.2-18.0) Hematocrit 29.8 % (42.0-52.0) Mean Corpuscular Volume 83 FL (80-99) Mean Corpuscular Hemoglobin 24.9 PG (27.0-31.0) Mean Corpuscular Hemoglobin Concent 29.9 G/DL (32.0-36.0) Red Cell Distribution Width 17.2 % (11.6-14.8) Platelet Count 506 K/UL (150-450) Mean Platelet Volume 6.3 FL (6.5-10.1) Neutrophils (%) (Auto) 59.1 % (45.0-75.0) Lymphocytes (%) (Auto) 18.6 % (20.0-45.0) Monocytes (%) (Auto) 8.7 % (1.0-10.0) Eosinophils (%) (Auto) 12.5 % (0.0-3.0) Basophils (%) (Auto) 1.1 % (0.0-2.0) Sodium Level 128 MMOL/L (136-145) Potassium Level 3.8 MMOL/L (3.5-5.1) Chloride Level 94 MMOL/L (98-107) Carbon Dioxide Level 24 MMOL/L (21-32) Anion Gap 10 mmol/L (5-15) Blood Urea Nitrogen 73 mg/dL (7-18) Creatinine 3.8 MG/DL (0.55-1.30) Estimat Glomerular Filtration Rate 15.5 mL/min (>60) Glucose Level 165 MG/DL (74-106) Calcium Level 8.8 MG/DL (8.5-10.1) Height (Feet): 5 Height (Inches): 10.00 Weight (Pounds): 117 Objective Physical Exam General Appearance: nad, Chronically Ill Head: normocephalic Eyes: right eye PERRL - Will not open left eye ENT: moist mucus membranes Neck: other - submandibular mass R, fairly rigid with resistance to rotation to L, tracheotomy Respiratory: decreased breath sounds, crackles, other - pacemaker, vent+ Cardiovascular: regular rate, rhythm, edema - anasarca Gastrointestinal: non tender, distended, other - G tube Genitourinary: other Musculoskeletal: other - Contractures all extremities Neurologic: sensory intact, motor weakness, responsive Psychiatric: other Skin: Decubitus/Ulcer - Stage III right elbow, stage III left elbow, stage II sacrum, stage III scrotum, warm/dry Fitz Campos MD Sep 28, 2019 06:57
--- NOTE | 2019-09-28 07:00 | NUR ---
NURSE NOTES: Nurse report given by TAMICA Duenas. Patient's in stable condition, no s/s of distress or SOB, no s/s of pain using FLACC score. Bed low and locked, call light within reach, side rails x 3, HOB >3. AAO x 0, obtunded, response to stimulant and pain. GT noted, no residuals, flushed and patent. Rectal tube noted. IV is saline locked, flushed, patent and asymptomatic. Vent/ Trach Portex 8, AC 18, Tv550, FiO2 24%, Peeps 5. Will continue to monitor.
[2019-09-28 08:00] VITALS: BP 120/52
[2019-09-28] MEDS ORDERED: Heparin Sod 1000 units/ml 10ml IV PRN (08:00)
[2019-09-28] MEDS ORDERED: Heparin 1000 units/ml 1ml Vial INJ PRN (08:00)
--- NOTE | 2019-09-28 08:06 | General Progress Note ---
Assessment/Plan Assessment/Plan: IMPRESSION: 1. anemia. 2. fevers improved 3. Leukocytosis. 4. hypotension 5. Acute on chronic renal failure. 6. Hyponatremia. 7. Severe protein-calorie malnutrition. 8. Significantly elevated C-reactive protein concerning for infectious etiology. 9. Tracheostomy, G-tube. 10. Ventilator dependence. 11. anasarca 12. Hematuria 13. V pacing PLAN rectal tube lomotil care noted on vent/ no wean monitor labs - still with elevated wbc ID follow up monitor renal function: HD prognosis poor impression, plan, and exam edited and reviewed in detail care discussed with RN Subjective Allergies: Coded Allergies: No Known Allergies (Unverified , 06/10/19) Subjective remains ill on vent/ no change on HD vitals noted diarrhea with rectal tube Objective Last 24 Hour Vital Signs Date Time Temp Pulse Resp B/P (MAP) Pulse Ox O2 Delivery O2 Flow Rate FiO2 09/28/19 07:03 70 12 24 09/28/19 05:15 72 14 24 09/28/19 04:00 63 09/28/19 04:00 Mechanical Ventilator 09/28/19 04:00 24 09/28/19 04:00 98.2 64 22 129/68 (88) 99 09/28/19 03:10 64 13 24 09/28/19 01:30 70 13 24 09/28/19 00:00 Mechanical Ventilator 09/28/19 00:00 98.1 64 12 109/48 (68) 99 09/28/19 00:00 64 09/27/19 22:30 63 12 99 Mechanical Ventilator 24 66 12 24 09/27/19 21:00 71 120/50 09/27/19 20:48 71 14 24 09/27/19 20:00 73 09/27/19 20:00 98.1 72 15 120/50 (73) 97 09/27/19 20:00 Mechanical Ventilator 09/27/19 20:00 24 09/27/19 19:04 71 14 24 09/27/19 17:12 69 16 24 09/27/19 16:00 63 09/27/19 16:00 98.9 66 14 106/51 (69) 100 09/27/19 16:00 Mechanical Ventilator 09/27/19 16:00 24 09/27/19 14:48 66 17 24 09/27/19 13:02 63 12 24 09/27/19 12:00 24 09/27/19 12:00 Mechanical Ventilator 09/27/19 12:00 60 09/27/19 11:59 98.2 61 13 123/56 (78) 100 09/27/19 11:01 68 12 24 09/27/19 09:14 65 144/60 09/27/19 09:14 144/60 09/27/19 09:09 69 12 24 Intake and Output 09/27/19 09/28/19 19:00 07:00 Intake Total 25 ml 255 ml Balance 25 ml 255 ml Free Water 30 ml Tube Feeding 25 ml 225 ml # Bowel Movements 1 Laboratory Tests 09/27/19 17:15: POC Whole Blood Glucose 146H 09/28/19 00:53: POC Whole Blood Glucose 147H 09/28/19 04:00: White Blood Count 14.3H, Red Blood Count 3.58L, Hemoglobin 8.9L, Hematocrit 29.8L, Mean Corpuscular Volume 83, Mean Corpuscular Hemoglobin 24.9L, Mean Corpuscular Hemoglobin Concent 29.9L, Red Cell Distribution Width 17.2H, Platelet Count 506H, Mean Platelet Volume 6.3L, Neutrophils (%) (Auto) 59.1, Lymphocytes (%) (Auto) 18.6L, Monocytes (%) (Auto) 8.7, Eosinophils (%) (Auto) 12.5H, Basophils (%) (Auto) 1.1, Sodium Level 128L, Potassium Level 3.8, Chloride Level 94L, Carbon Dioxide Level 24, Anion Gap 10, Blood Urea Nitrogen 73H, Creatinine 3.8H, Estimat Glomerular Filtration Rate 15.5, Glucose Level 165H, Calcium Level 8.8 Height (Feet): 5 Height (Inches): 10.00 Weight (Pounds): 117 Objective GENERAL: Ill-appearing male, chronically debilitated. HEENT: Tracheostomy in midline. Questionable fullness in the submandibular region. LUNGS: Coarse breath sounds. reduced breath sounds CARDIAC: S1, S2. Regular rate and rhythm. ABDOMEN: Soft. G-tube. EXTREMITIES: With noted edema. NEUROLOGICAL: Poorly responsive, weak diffusely. Kain Ramirez MD Sep 28, 2019 08:06
[2019-09-28] MEDS: Lactobacillus-GG tablet GT SCH ×2 (08:48→17:24)
[2019-09-28] MEDS: Metoprolol Tartrate 100mg tab GT SCH ×2 (08:49→21:00)
[2019-09-28] MEDS: Minoxidil 2.5mg tab GT SCH (08:49)
--- NOTE | 2019-09-28 09:00 | NUR ---
NURSE NOTES: Made Dr. Mustafa that patient has bowel movement and his abdomen is less distended now. MD ordered to d/c dulcolax and start miralax instead. Orders acknowledged and carried out.
[2019-09-28] MEDS: Zinc Oxide Oint 2oz TOPIC SCH ×2 (09:04→17:24)
[2019-09-28] MEDS: Colistin for inhalation INH SCH ×2 (09:22→21:28)
--- NOTE | 2019-09-28 09:31 | NUR ---
NURSE NOTES: Made Dr. Shaw aware that patient's Na is 128. No new orders at this time.
--- NOTE | 2019-09-28 09:41 | NUR ---
RESPIRATORY NOTE: Pt received on AC 12, 550. 24%, +5. SpO2 98, HR 70. B/S bilateral rhonchi with equal chest rise. Suctioned small amount of pale yellow secretions. Trach secured and patent. Vent plugged in to red outlet. Alarms are on and audible. Spare trach and ambu bag at bedside. No distress at this time, will continue to monitor.
--- NOTE | 2019-09-28 10:18 | General Progress Note ---
Assessment/Plan Assessment/Plan: Assessment - abdominal distention, due to colonic dysmotility, - colonoscopy negative to hepatic flexure - diarrhea - presumed TF related - abnormal LFT - Anemia - leukocytosis - stool OB (+) - EGD --> gastritis - Renal failure - Anasarca - resp failure, trach - dysphagia, GT - encephalopathy, contracted - poor px Recommendations - d/c suppositories - rectal tube - roll side to side as feasible (hard due to severe contractions) - Elevate HOB - f/u labs - PPI - abx - supportive care Subjective Allergies: Coded Allergies: No Known Allergies (Unverified , 06/10/19) Subjective Above noted d/w RN rectal suppository ---> large BM, loose now back on rectal tube Objective Last 24 Hour Vital Signs Date Time Temp Pulse Resp B/P (MAP) Pulse Ox O2 Delivery O2 Flow Rate FiO2 09/28/19 09:05 65 14 24 09/28/19 08:49 70 109/48 09/28/19 08:49 109/48 09/28/19 08:00 24 09/28/19 08:00 Mechanical Ventilator 09/28/19 08:00 98.6 64 14 120/52 (74) 100 09/28/19 08:00 67 09/28/19 07:03 70 12 24 09/28/19 05:15 72 14 24 09/28/19 04:00 63 09/28/19 04:00 Mechanical Ventilator 09/28/19 04:00 24 09/28/19 04:00 98.2 64 22 129/68 (88) 99 09/28/19 03:10 64 13 24 09/28/19 01:30 70 13 24 09/28/19 00:00 Mechanical Ventilator 09/28/19 00:00 98.1 64 12 109/48 (68) 99 09/28/19 00:00 64 09/27/19 22:30 63 12 99 Mechanical Ventilator 24 66 12 24 09/27/19 21:00 71 120/50 09/27/19 20:48 71 14 24 09/27/19 20:00 73 09/27/19 20:00 98.1 72 15 120/50 (73) 97 09/27/19 20:00 Mechanical Ventilator 09/27/19 20:00 24 09/27/19 19:04 71 14 24 09/27/19 17:12 69 16 24 09/27/19 16:00 63 09/27/19 16:00 98.9 66 14 106/51 (69) 100 09/27/19 16:00 Mechanical Ventilator 09/27/19 16:00 24 09/27/19 14:48 66 17 24 09/27/19 13:02 63 12 24 09/27/19 12:00 24 09/27/19 12:00 Mechanical Ventilator 09/27/19 12:00 60 09/27/19 11:59 98.2 61 13 123/56 (78) 100 09/27/19 11:01 68 12 24 Intake and Output 09/27/19 09/28/19 19:00 07:00 Intake Total 25 ml 255 ml Balance 25 ml 255 ml Free Water 30 ml Tube Feeding 25 ml 225 ml # Bowel Movements 1 Laboratory Tests 09/27/19 17:15: POC Whole Blood Glucose 146H 09/28/19 00:53: POC Whole Blood Glucose 147H 09/28/19 04:00: White Blood Count 14.3H, Red Blood Count 3.58L, Hemoglobin 8.9L, Hematocrit 29.8L, Mean Corpuscular Volume 83, Mean Corpuscular Hemoglobin 24.9L, Mean Corpuscular Hemoglobin Concent 29.9L, Red Cell Distribution Width 17.2H, Platelet Count 506H, Mean Platelet Volume 6.3L, Neutrophils (%) (Auto) 59.1, Lymphocytes (%) (Auto) 18.6L, Monocytes (%) (Auto) 8.7, Eosinophils (%) (Auto) 12.5H, Basophils (%) (Auto) 1.1, Sodium Level 128L, Potassium Level 3.8, Chloride Level 94L, Carbon Dioxide Level 24, Anion Gap 10, Blood Urea Nitrogen 73H, Creatinine 3.8H, Estimat Glomerular Filtration Rate 15.5, Glucose Level 165H, Calcium Level 8.8 Height (Feet): 5 Height (Inches): 10.00 Weight (Pounds): 117 Objective Debilitated AA man NCAT (+) trach coarse BS RR abd (++) distended, anasarca, (+) GT ext (+) edema contracted Ronny Mustafa MD Sep 28, 2019 10:18
--- NOTE | 2019-09-28 10:24 | Infectious Diseases Prog Note ---
Assessment/Plan Assessment/Plan A: 1. Pneumonia with Acinetobacter & Proteus COVID19 X2 : negative 2. ESRD on HD 3. Leukocytosis 4. Respiratory failure, Ventilator dependent 5. Anemia 6. Anasarca 7. 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 Klebsiella catheter infection s/p removal 10. Diarrhea, C. difficile negative PLAN: 1. Continue Colistin inhaler 2. f/u CXR Subjective ROS Limited/Unobtainable: Yes Constitutional: Denies: fever Allergies: Coded Allergies: No Known Allergies (Unverified , 06/10/19) Objective Last 24 Hour Vital Signs Date Time Temp Pulse Resp B/P (MAP) Pulse Ox O2 Delivery O2 Flow Rate FiO2 09/28/19 09:05 65 14 24 09/28/19 08:49 70 109/48 09/28/19 08:49 109/48 09/28/19 08:00 24 09/28/19 08:00 Mechanical Ventilator 09/28/19 08:00 98.6 64 14 120/52 (74) 100 09/28/19 08:00 67 09/28/19 07:03 70 12 24 09/28/19 05:15 72 14 24 09/28/19 04:00 63 09/28/19 04:00 Mechanical Ventilator 09/28/19 04:00 24 09/28/19 04:00 98.2 64 22 129/68 (88) 99 09/28/19 03:10 64 13 24 09/28/19 01:30 70 13 24 09/28/19 00:00 Mechanical Ventilator 09/28/19 00:00 98.1 64 12 109/48 (68) 99 09/28/19 00:00 64 09/27/19 22:30 63 12 99 Mechanical Ventilator 24 66 12 24 09/27/19 21:00 71 120/50 09/27/19 20:48 71 14 24 09/27/19 20:00 73 09/27/19 20:00 98.1 72 15 120/50 (73) 97 09/27/19 20:00 Mechanical Ventilator 09/27/19 20:00 24 09/27/19 19:04 71 14 24 09/27/19 17:12 69 16 24 09/27/19 16:00 63 09/27/19 16:00 98.9 66 14 106/51 (69) 100 09/27/19 16:00 Mechanical Ventilator 09/27/19 16:00 24 09/27/19 14:48 66 17 24 09/27/19 13:02 63 12 24 09/27/19 12:00 24 09/27/19 12:00 Mechanical Ventilator 09/27/19 12:00 60 09/27/19 11:59 98.2 61 13 123/56 (78) 100 09/27/19 11:01 68 12 24 Height (Feet): 5 Height (Inches): 10.00 Weight (Pounds): 117 General Appearance: no acute distress, cachetic HEENT: status post trach Respiratory/Chest: lungs clear, other - on ventilator Cardiovascular: normal rate, other - R permacath Abdomen: soft, non tender, other - GT feeding Extremities: no edema Neurologic/Psychiatric: aphasia Musculoskeletal: atrophy Laboratory Tests Test 09/27/19 17:15 09/28/19 00:53 09/28/19 04:00 POC Whole Blood Glucose 146 MG/DL (74-106) H 147 MG/DL (74-106) H White Blood Count 14.3 K/UL (4.8-10.8) H Red Blood Count 3.58 M/UL (4.70-6.10) L Hemoglobin 8.9 G/DL (14.2-18.0) L Hematocrit 29.8 % (42.0-52.0) L Mean Corpuscular Volume 83 FL (80-99) Mean Corpuscular Hemoglobin 24.9 PG (27.0-31.0) L Mean Corpuscular Hemoglobin Concent 29.9 G/DL (32.0-36.0) L Red Cell Distribution Width 17.2 % (11.6-14.8) H Platelet Count 506 K/UL (150-450) H Mean Platelet Volume 6.3 FL (6.5-10.1) L Neutrophils (%) (Auto) 59.1 % (45.0-75.0) Lymphocytes (%) (Auto) 18.6 % (20.0-45.0) L Monocytes (%) (Auto) 8.7 % (1.0-10.0) Eosinophils (%) (Auto) 12.5 % (0.0-3.0) H Basophils (%) (Auto) 1.1 % (0.0-2.0) Sodium Level 128 MMOL/L (136-145) L Potassium Level 3.8 MMOL/L (3.5-5.1) Chloride Level 94 MMOL/L (98-107) L Carbon Dioxide Level 24 MMOL/L (21-32) Anion Gap 10 mmol/L (5-15) Blood Urea Nitrogen 73 mg/dL (7-18) H Creatinine 3.8 MG/DL (0.55-1.30) H Estimat Glomerular Filtration Rate 15.5 mL/min (>60) Glucose Level 165 MG/DL (74-106) H Calcium Level 8.8 MG/DL (8.5-10.1) Current Medications Medications (Trade) Dose Ordered Sig/Leonel Route PRN Reason Start Time Stop Time Status Last Admin Dose Admin Acetaminophen (Tylenol) 650 mg Q4H PRN GT Mild Pain (Pain Scale 1-3) 09/21/19 12:45 10/21/19 12:44 09/26/19 22:37 Atorvastatin Calcium (Lipitor) 40 mg BEDTIME GT 08/09/19 21:00 11/07/19 20:59 09/27/19 21:00 Chlorhexidine Gluconate (Felipa-Hex 2%) 1 applic DAILY@1999 TOPIC 09/12/19 20:00 12/11/19 19:59 09/27/19 21:00 Clonidine HCl (Catapres Tab) 0.1 mg Q4H PRN GT For High Blood Pressure 09/09/19 12:30 12/08/19 05:29 09/15/19 04:10 Colistimethate Sodium (Colistin *inhalation use only*) 75 mg Q12HR@, INH 09/27/19 22:00 10/04/19 21:59 09/28/19 09:22 Dextrose (Dextrose 50%) 25 ml Q30M PRN IV Hypoglycemia 08/09/19 07:30 11/07/19 07:29 Dextrose (Dextrose 50%) 50 ml Q30M PRN IV Hypoglycemia 08/09/19 07:30 11/07/19 07:29 Diphenoxylate HCl/ Atropine (Lomotil) 2.5 mg QID PRN ORAL Diarrhea 09/24/19 08:45 10/24/19 08:44 Epoetin Andreas (Epoetin Andreas(ESRD on dialysis)) 10,000 unit WED-WED-WED SUBQ 09/20/19 21:00 12/19/19 20:59 09/27/19 21:00 Famotidine (Pepcid) 20 mg DAILY GT 08/30/19 09:00 11/28/19 08:59 09/28/19 08:48 Heparin Sodium (Porcine) (Heparin Sod 1000 units/ml 10ml) 2,000 unit ONCE PRN IV HD USE 09/28/19 08:00 09/28/19 23:59 Heparin Sodium (Porcine) (Heparin) 1,000 unit POSTHD PRN INJ HD USE 09/28/19 08:00 09/28/19 23:59 Insulin Aspart (NovoLOG) Q6HR SUBQ 09/25/19 18:00 11/07/19 11:29 09/28/19 05:43 Lactobacillus Acidophilus (Culturelle) 1 tab TWICE A DAY GT 09/14/19 18:00 12/13/19 17:59 09/28/19 08:48 Metoprolol Tartrate (Lopressor) 200 mg Q12HR GT 08/09/19 09:00 11/07/19 08:59 09/27/19 21:00 Minoxidil (Loniten) 5 mg DAILY GT 08/09/19 09:00 11/07/19 08:59 09/27/19 09:14 Polyethylene Glycol (Miralax) 17 gm DAILY GT 09/28/19 11:00 10/28/19 10:59 Sodium Chloride 1,000 ml @ 500 mls/hr Q2H PRN IVLG sbp<90 during hd 09/28/19 08:00 09/28/19 23:59 Zinc Oxide (Zinc Oxide) 1 applic BID TOPIC 08/10/19 18:00 11/08/19 17:59 09/28/19 09:04 Real De Leon MD Sep 28, 2019 10:24
[2019-09-28] MEDS: Miralax 17gm pkt GT SCH (11:11)
[2019-09-28] MEDS: Acetaminophen 650mg/20.3ml GT PRN (11:12)
[2019-09-28 12:00] VITALS: BP 116/53
--- NOTE | 2019-09-28 12:00 | NUR ---
CASE MANAGEMENT: REVIEW 09/28/19 SI: ESRD on HD . CHRONIC LEUKOCYTOSIS 98.6 64 14 120/52 100% MECH VENT FIO2 24 WBC 14.3 H/H 8.9/29.8 PLT 506 NA+ 128 CL-94 BUN/CREAT 73/.38 BG 165 IS: COLISTIN INH Q12HR EPOETIN SUBQ QMWF HEPARIN IV PRN HD NOVOLOG SUBQ Q6HR HD TODAY \:2E STEP DOWN UNIT STATUS DCP: PATIENT HAS BEEN ACCEPTED TO [facility]; WITH OUTPATIENT HD AT [facility] PENDING [facility] PATIENT HAS BEEN ACCEPTED TO [facility]; PENDING WBC WITHIN NORMAL LIMITS
--- NOTE | 2019-09-28 12:13 | NUR ---
*-* INSURANCE *-* UPDATED CLINICALS AND REVIEWS HAVE BEEN FAXED TO: [facility] REF# [id number] RIC:HARPER P:[phone] F:[phone]
--- NOTE | 2019-09-28 13:48 | Nephrology Progress Note ---
Assessment/Plan Plan MOF Established ESRD - HD now TTS. Anemia of CKD -TUYET. Subjective Subjective Obtunded. Objective Objective Last 24 Hour Vital Signs Date Time Temp Pulse Resp B/P (MAP) Pulse Ox O2 Delivery O2 Flow Rate FiO2 09/28/19 12:39 70 15 24 09/28/19 12:00 70 09/28/19 12:00 24 09/28/19 12:00 Mechanical Ventilator 09/28/19 12:00 98.2 71 14 116/53 (74) 100 09/28/19 11:42 98.2 09/28/19 10:36 72 14 24 09/28/19 09:05 65 14 24 09/28/19 08:49 70 109/48 09/28/19 08:49 109/48 09/28/19 08:00 24 09/28/19 08:00 Mechanical Ventilator 09/28/19 08:00 98.6 64 14 120/52 (74) 100 09/28/19 08:00 67 09/28/19 07:03 70 12 24 09/28/19 05:15 72 14 24 09/28/19 04:00 63 09/28/19 04:00 Mechanical Ventilator 09/28/19 04:00 24 09/28/19 04:00 98.2 64 22 129/68 (88) 99 09/28/19 03:10 64 13 24 09/28/19 01:30 70 13 24 09/28/19 00:00 Mechanical Ventilator 09/28/19 00:00 98.1 64 12 109/48 (68) 99 09/28/19 00:00 64 09/27/19 22:30 63 12 99 Mechanical Ventilator 24 66 12 24 09/27/19 21:00 71 120/50 09/27/19 20:48 71 14 24 09/27/19 20:00 73 09/27/19 20:00 98.1 72 15 120/50 (73) 97 09/27/19 20:00 Mechanical Ventilator 09/27/19 20:00 24 09/27/19 19:04 71 14 24 09/27/19 17:12 69 16 24 09/27/19 16:00 63 09/27/19 16:00 98.9 66 14 106/51 (69) 100 09/27/19 16:00 Mechanical Ventilator 09/27/19 16:00 24 09/27/19 14:48 66 17 24 Intake and Output 09/27/19 09/28/19 19:00 07:00 Intake Total 25 ml 380 ml Balance 25 ml 380 ml Free Water 130 ml Tube Feeding 25 ml 250 ml # Bowel Movements 1 Laboratory Tests 09/27/19 17:15: POC Whole Blood Glucose 146H 09/28/19 00:53: POC Whole Blood Glucose 147H 09/28/19 04:00: White Blood Count 14.3H, Red Blood Count 3.58L, Hemoglobin 8.9L, Hematocrit 29.8L, Mean Corpuscular Volume 83, Mean Corpuscular Hemoglobin 24.9L, Mean Corpuscular Hemoglobin Concent 29.9L, Red Cell Distribution Width 17.2H, Platelet Count 506H, Mean Platelet Volume 6.3L, Neutrophils (%) (Auto) 59.1, Lymphocytes (%) (Auto) 18.6L, Monocytes (%) (Auto) 8.7, Eosinophils (%) (Auto) 12.5H, Basophils (%) (Auto) 1.1, Sodium Level 128L, Potassium Level 3.8, Chloride Level 94L, Carbon Dioxide Level 24, Anion Gap 10, Blood Urea Nitrogen 73H, Creatinine 3.8H, Estimat Glomerular Filtration Rate 15.5, Glucose Level 165H, Calcium Level 8.8 09/28/19 11:10: POC Whole Blood Glucose 161H Height (Feet): 5 Height (Inches): 10.00 Weight (Pounds): 117 Objective CV RR Trach clean Lungs CTA New Perma Cath RIJ. Abd SNT. BS + E No CCE Erica Pichardo MD Sep 28, 2019 13:48
[2019-09-28 16:00] VITALS: BP 121/51
--- NOTE | 2019-09-28 16:21 | Surgery Progress Note ---
Surgery Progress Note Subjective Procedure Performed Right femoral temporary hemodialysis catheter removal Additional Comments leukocytosis improved labs noted exam stable comfortable no n/v/f/c Objective Last 24 Hour Vital Signs Date Time Temp Pulse Resp B/P (MAP) Pulse Ox O2 Delivery O2 Flow Rate FiO2 09/28/19 16:00 24 09/28/19 16:00 Mechanical Ventilator 09/28/19 15:01 65 17 24 09/28/19 12:39 70 15 24 09/28/19 12:00 70 09/28/19 12:00 24 09/28/19 12:00 Mechanical Ventilator 09/28/19 12:00 98.2 71 14 116/53 (74) 100 09/28/19 11:42 98.2 09/28/19 10:36 72 14 24 09/28/19 09:05 65 14 24 09/28/19 08:49 70 109/48 09/28/19 08:49 109/48 09/28/19 08:00 24 09/28/19 08:00 Mechanical Ventilator 09/28/19 08:00 98.6 64 14 120/52 (74) 100 09/28/19 08:00 67 09/28/19 07:03 70 12 24 09/28/19 05:15 72 14 24 09/28/19 04:00 63 09/28/19 04:00 Mechanical Ventilator 09/28/19 04:00 24 09/28/19 04:00 98.2 64 22 129/68 (88) 99 09/28/19 03:10 64 13 24 09/28/19 01:30 70 13 24 09/28/19 00:00 Mechanical Ventilator 09/28/19 00:00 98.1 64 12 109/48 (68) 99 09/28/19 00:00 64 09/27/19 22:30 63 12 99 Mechanical Ventilator 24 66 12 24 09/27/19 21:00 71 120/50 09/27/19 20:48 71 14 24 09/27/19 20:00 73 09/27/19 20:00 98.1 72 15 120/50 (73) 97 09/27/19 20:00 Mechanical Ventilator 09/27/19 20:00 24 09/27/19 19:04 71 14 24 09/27/19 17:12 69 16 24 I&O Intake and Output 09/27/19 09/28/19 19:00 07:00 Intake Total 25 ml 380 ml Balance 25 ml 380 ml Free Water 130 ml Tube Feeding 25 ml 250 ml # Bowel Movements 1 Dressing: other Wound: other Drains: other Cardiovascular: RSR Respiratory: decreased breath sounds Abdomen: soft, non-tender, present bowel sounds Extremities: no tenderness, no cyanosis Laboratory Tests Test 09/27/19 17:15 09/28/19 00:53 09/28/19 04:00 09/28/19 11:10 POC Whole Blood Glucose 146 MG/DL (74-106) H 147 MG/DL (74-106) H 161 MG/DL (74-106) H White Blood Count 14.3 K/UL (4.8-10.8) H Red Blood Count 3.58 M/UL (4.70-6.10) L Hemoglobin 8.9 G/DL (14.2-18.0) L Hematocrit 29.8 % (42.0-52.0) L Mean Corpuscular Volume 83 FL (80-99) Mean Corpuscular Hemoglobin 24.9 PG (27.0-31.0) L Mean Corpuscular Hemoglobin Concent 29.9 G/DL (32.0-36.0) L Red Cell Distribution Width 17.2 % (11.6-14.8) H Platelet Count 506 K/UL (150-450) H Mean Platelet Volume 6.3 FL (6.5-10.1) L Neutrophils (%) (Auto) 59.1 % (45.0-75.0) Lymphocytes (%) (Auto) 18.6 % (20.0-45.0) L Monocytes (%) (Auto) 8.7 % (1.0-10.0) Eosinophils (%) (Auto) 12.5 % (0.0-3.0) H Basophils (%) (Auto) 1.1 % (0.0-2.0) Sodium Level 128 MMOL/L (136-145) L Potassium Level 3.8 MMOL/L (3.5-5.1) Chloride Level 94 MMOL/L (98-107) L Carbon Dioxide Level 24 MMOL/L (21-32) Anion Gap 10 mmol/L (5-15) Blood Urea Nitrogen 73 mg/dL (7-18) H Creatinine 3.8 MG/DL (0.55-1.30) H Estimat Glomerular Filtration Rate 15.5 mL/min (>60) Glucose Level 165 MG/DL (74-106) H Calcium Level 8.8 MG/DL (8.5-10.1) Plan Problems: (1) Anemia (2) Hyponatremia (3) Leukocytosis Assessment & Plan: Tracheostomy, left chest pacemaker are again demonstrated. There is bilateral interstitial and airspace disease and bilateral pleural fluid again demonstrated. This appears more severe than on the prior study. Bilateral interstitial and airspace infiltrates versus edema. Bilateral pleural effusions Leukocytosis, anemia, tachycardia, abnormal labs. Wound evaluated and likely etiology of patient's sepsis. Leukocytosis etiology work-up antibiotics per infectious disease Appreciate nephrology input transfuse with dialysis We will follow with recommendations thank you allowing participation's care plan HD access temp HD discussed with medical teams line okay HD as per renal persistent leukocytosis flow cyto noted improving trending down right fem line removed (4) Ventilator dependent (5) Right lower lobe pneumonia (6) Hypokalemia (7) Hyperkalemia (8) Anasarca (9) Decubitus skin ulcer Assessment & Plan: pt presented on admission with generalized edemae.Skin assessed under tracheostomy and no areas of concerns noted. GT Insertion is marginally erythematous with small amt slough at stoma. Unstageable Pressure Injury R elbow. Base of wound is 100% yellow slough, Borders are erythematous. Wound oozing small amt haemopurulent exudate.Darker skin tone without elevation in skin temp or erythema periwound. Pt's penis and scrotum are grossly edematous and enlarged and weeping serous exudate from numerous sites both from penis and scrotum. Two small open wounds noted at base of at base of shaft of penis ,and contreras aspect of scrotum. Both wounds oozing large amt sanguineous and serosanguineous exudate. Multiple open wounds with Biofilm at base of each wounds noted to contrersa/lateral,inferior and posterior aspects of scrotum. These wounds noted to be oozing moderate amts of serosanguineous exudate. Hypertrophic scar with scattered areas of hyperpigmentation noted to Sacrum. DTPI noted to L Buttocks (L)7cm x (W)9cm. Base of wound is purple and indurated.Darker skin tone without erythema, induration or fluctuance R and L ischial tuberosities. Both heels are boggy with non-blanchable erythema. Tx.Plan: Cleanse wound R elbow with Saline. Apply TheraHoney, Apply Moisture Barrier Paste periwound. Cover with Optifoam drsg.Change Daily and prn. Wash GT site with soap and water.Pat dry. Apply Zinc Oxide Paste to GT site Daily. Leave Open to Air. Apply Zinc Oxide Paste to entire Scrotum, Place ABD pads to R and L lateral, and posterior aspects of scrotum TWICE daily. Apply Cavilon Skin Barrier to malleoli and both Heels. Cover each site with Optifoam drsgs. Change every 7 days and prn. Reposition at least every 2hours or as tolerated. Off-load heels with Pillows. APM/BECCA Mattress overlay. (10) Malnutrition Assessment & Plan: DAILY ESTIMATED NEEDS: Needs based on Renal, critical care, wound/ 61kg 22-30 kcals/kg 5913-1002 total kcals 1.25-2 g protein/kg 76-122 g total protein Fluid per MD, now on HD NUTRITION DIAGNOSIS: * Swallowing difficulty R/T respiratory failure, dysphagia as evidenced by trach/vent dep, PEG dep * Increased kcal/prot needs R/T wound healing as evidenced by admitted w/ multiple pressure injuries including full thickness wounds at junction of Shaft of penis, dorsal scrotum, R elbow, and DTPI @ L buttocks. CURRENT TF:Vital AF 1.2 @ 50ml/hr x 24 hrs + Garo BID ENTERAL NUTRITION RECOMMENDATIONS: Vital AF 1.2 @ 60ml/hr x 20 hrs to provide 1200ml, 1440kcal, 90g prot, 973ml free water * Rec 20 hr run time for GI rest. Increase TF to goal of 60ml/hr for 20 hrs to meet est needs. -> monitor lytes and renal fxn closely, monitor need for renal TF -> TF @ goal will provide 1642mg K and 2025mg Phos * HOB over 30 degrees/ water flush per MD -------- Pt continues to have loose stool, rectal tube. Trial of Osmolite 1.2 w/ goal of 60ml/hr for 20 hrs (4 hrs bowel rest) to provide 1200ml, 1440 kcal, 67g pro, 984ml free H2O, -> Rec to add prosource 1 pack daily (11g pro) to better meet est pro needs. -> Monitor BG, K closely. Pt would require increased insulin coverage as TF at goal would provide 56g more carbs per day. ------- ADDITIONAL RECOMMENDATIONS: * Per SNF: HT=63" VT=692 lbs (vs EMR wt of 166lbs) -> obtain re-calibrated bedscale wt, rec daily wt monitoring * Wound healing: con't Nephrovite + Garo BID/ Vit C dosing per Nephro * Monitor renal fxn and lytes closely w/ non-renal TF -> K low, phos wnl; rec updated mag level. * Daily wts w/ drop to 118-20 lbs, rec to recalibrate for accurate CBW * Consider adding anti-diarrheal med +rectal tube-> now on imodium (11) Uremia (12) CKD (chronic kidney disease) stage 5, GFR less than 15 ml/min (13) Colon distention Assessment & Plan: discussed with GI likely functional as having lots of loose bm rectal tube kub f/u s/p colonoscopy - findings reviewed with GI Marked distention of the sigmoid colon. 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 No evidence of bowel wall thickening or pneumatosis 12 mm focus of contrast enhancement in the right pectineus muscle. While nonspecific in appearance, appearance raises concern for a possible pseudoaneurysm. Ill- defined thickening of the pectus medius muscle could indicate some intramuscular hemorrhage. The above findings were phoned to Dr. Urias at the time of interpretation Large bilateral pleural effusions Hazy pulmonary parenchymal opacities as well as dense consolidative opacities most likely represent pulmonary edema, but could represent pneumonia Evidence of anasarca elsewhere, with generalized edema of the subcutaneous fat Bladder wall thickening, raises concern for cystitis. Avalos catheter in place Colonic diverticulosis. No evidence of diverticulitis. Tracheostomy Pacemaker Gastrostomy Jonathan Urias Sep 28, 2019 16:21
--- NOTE | 2019-09-28 16:50 | NUR ---
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 [facility]AM[facility]OS INQUIRY REMAINS IN REVIEW. FAXED UPDATED CLINICALS TO [facility].
--- NOTE | 2019-09-28 18:22 | NUR ---
NURSE NOTES: Spoke to Dialysis nurseSylvester in person and made dialysis nurse aware patient is having dialysis schedule for today. Dialysis nurse aware and stated that she will come to perform later today. Made Dr. Leonard aware the situation in person also. Will continue to get update.
--- NOTE | 2019-09-28 18:44 | NUR ---
NURSE NOTES: Dialysis nurse arrived and starting to perform dialysis on patient. Patient's in stable condition. Will continue to monitor.
--- NOTE | 2019-09-28 19:20 | NUR ---
NURSE NOTES: Pt report received from Ruth RN. pt appears stable. pt is obtunded neuro jimenez, however no acute change to neuro/ mentation. pt is trach vented, satting 97% O2, no acute resp distress noted. pt is on alarm security or surveillance monitor, showing V pace, vital signs stable. no other abnormalities to vital signs. bed is low, locked, armed, call light within reach, bed rails up times 3. will follow plan of care.
--- NOTE | 2019-09-28 19:31 | NUR ---
NURSE HAND-OFF REPORT: Important Events on Shift: Stable Patient Status: Stable, fair Diet: Osmolite 1.2 at 40cc/hr Pending Orders: Dialysis Pending Results/Labs:n/a Pending MD notification:n/a Latest Vital Signs: Temperature 98.2 , Pulse 72 , B/P 121 /51 , Respiratory Rate 17 , O2 SAT 99 , Mechanical Ventilator, O2 Flow Rate 15.0 . Vital Sign Comment: EKG Rhythm: V-Paced Rhythm change?: N MD Notified?: N - MD Response: Latest Delacruz Fall Score: 70 Fall Risk: High Risk Safety Measures: Call light Within Reach, Bed Alarm Zone 1, Side Rails Side Rails x3, Bed position Low and Locked. Fall Precautions: Yellow Socks Yellow Gown Door Sign Patient Fall Education Report given to TAMICA Espino
[2019-09-28 20:00] VITALS: BP 119/56
[2019-09-28] MEDS: Atorvastatin 20mg tab GT SCH (21:00)
--- NOTE | 2019-09-28 21:15 | NUR ---
RESPIRATORY NOTE: PT RECEIVED STABLE ON CMV WITH CURRENT SETTINGS. AC:12, 550, 24%, +5. ALARMS ARE ON AND AUDIBLE. VENT CIRCUIT IS SECURE OUT OF THE WAY. NO S/S OF RESPIRATORY DISTRESS NOTED AT THIS TIME. WILL CONTINUE TO CLOSELY MONITOR.
[2019-09-28] MEDS: Dyna-Hex 2% Top Sol 2oz TOPIC SCH (21:31)
--- NOTE | 2019-09-28 22:09 | NUR ---
NURSE NOTES: Hemo Dialysis Sylvester RN, reported 2.5L out from Hemo Dialysis and pts BP is currently 120,43. pt remains stable. Addendum: 09/29/19 at 0329 by ARMANDO GUZMAN RN NURSE NOTES: Hemo Dialysis Sylvester RN, reported 2.5L out from Hemo Dialysis and pts BP is currently 120/43. pt remains stable.
[2019-09-29] VITALS (8 sets, daily range): BP systolic 47–140; BP diastolic 47–61
--- NOTE | 2019-09-29 | NUR ---
NURSE NOTES: Pt cleaned and repositioned. Wound care given as Doctor ordered.
--- NOTE | 2019-09-29 02:00 | NUR ---
NURSE NOTES: Pt turned and repositioned. IV lines assessed.
--- NOTE | 2019-09-29 04:00 | NUR ---
NURSE NOTES: Pt turned and reposited. IV lines and tubings assessed. assessed vent and connections.
--- NOTE | 2019-09-29 04:30 | NUR ---
RESPIRATORY NOTE: PT REMAINED STABLE ON CMV WITH CURRENT SETTINGS. SXN PRN. AIRWAY IS SECURE AND PATENT. NO S/S OF RESPIRATORY DISTRESS NOTED AT THIS TIME.
[2019-09-29] MEDS: NovoLOG Insulin Flexpen SUBQ SCH ×4 (06:07→23:55)
--- NOTE | 2019-09-29 07:30 | NUR ---
NURSE HAND-OFF REPORT: Important Events on Shift:[Dialysis] Patient Status: [STABLE] Diet: [TUBE FEEDING] Pending Orders: [NA] Pending Results/Labs:[NA] Pending MD notification:[NA] Latest Vital Signs: Temperature 99.1 , Pulse 81 , B/P 140 /58 , Respiratory Rate 14 , O2 SAT 98 , Mechanical Ventilator, O2 Flow Rate 15.0 . Vital Sign Comment: [STABLE] EKG Rhythm: V-Paced Rhythm change?: N MD Notified?: N - MD Response: Latest Delacruz Fall Score: 70 Fall Risk: High Risk Safety Measures: Call light Within Reach, Bed Alarm Zone 1, Side Rails Side Rails x3, Bed position Low and Locked. Fall Precautions: Yellow Socks Yellow Gown Door Sign Patient Fall Education Report given to [FAVIOLA RN].
--- NOTE | 2019-09-29 07:35 | NUR ---
NURSE NOTES: Report received from Srinivas Hubbard RN.Pt resting in bed asleep noted no resp distress,with trach tube to vent,ordered vent settings tolerated ,no signs of pain or discomfort V-Paced on the monitor,GTF Osmolite 1.2 at 50 ml/hr ,goal is 60 ml/hr no residual noted,Rectal tube in placed draining liquid brown stools,pt anuric,HD pt with access to RT SC Permacath,skin warm and sry IV site to LFA intact SL,SR up x2 HOB elevated,bed lock in lowest position,will continue with plans of care.
--- NOTE | 2019-09-29 08:20 | General Progress Note ---
Assessment/Plan Assessment/Plan: IMPRESSION: 1. anemia. 2. fevers improved 3. Leukocytosis. 4. hypotension 5. Acute on chronic renal failure. 6. Hyponatremia. 7. Severe protein-calorie malnutrition. 8. Significantly elevated C-reactive protein concerning for infectious etiology. 9. Tracheostomy, G-tube. 10. Ventilator dependence. 11. anasarca 12. Hematuria 13. V pacing PLAN rectal tube lomotil care noted on vent/ no wean monitor labs - still with elevated wbc ID follow up monitor renal function: HD prognosis poor impression, plan, and exam edited and reviewed in detail care discussed with RN Subjective Allergies: Coded Allergies: No Known Allergies (Unverified , 06/10/19) Subjective remains ill on vent/ no change on HD vitals noted diarrhea with rectal tube Objective Last 24 Hour Vital Signs Date Time Temp Pulse Resp B/P (MAP) Pulse Ox O2 Delivery O2 Flow Rate FiO2 09/29/19 06:50 81 14 24 09/29/19 04:30 82 14 24 09/29/19 04:00 Mechanical Ventilator 09/29/19 04:00 24 09/29/19 04:00 99.1 79 24 140/58 (85) 98 09/29/19 04:00 72 09/29/19 02:40 78 12 24 09/29/19 01:13 81 16 24 09/29/19 00:00 81 09/29/19 00:00 99.0 81 24 130/56 (80) 99 09/29/19 00:00 Mechanical Ventilator 09/29/19 00:00 24 09/28/19 23:10 83 17 24 09/28/19 21:15 79 16 97 24 81 17 09/28/19 21:00 83 148/69 09/28/19 20:09 76 17 24 09/28/19 20:00 Mechanical Ventilator 09/28/19 20:00 24 09/28/19 20:00 98.2 75 23 119/56 (77) 99 09/28/19 19:26 72 09/28/19 17:54 72 17 24 09/28/19 16:00 68 09/28/19 16:00 24 09/28/19 16:00 98.2 67 24 121/51 (74) 99 09/28/19 16:00 Mechanical Ventilator 09/28/19 15:01 65 17 24 09/28/19 12:39 70 15 24 09/28/19 12:00 70 09/28/19 12:00 24 09/28/19 12:00 Mechanical Ventilator 09/28/19 12:00 98.2 71 14 116/53 (74) 100 09/28/19 11:45 100.4 09/28/19 11:42 98.2 09/28/19 10:36 72 14 24 09/28/19 09:05 65 14 24 09/28/19 08:49 70 109/48 09/28/19 08:49 109/48 Intake and Output 09/28/19 09/29/19 19:00 07:00 Intake Total 445 ml 380 ml Output Total 201 ml 2600 ml Balance 244 ml -2220 ml Free Water 150 ml Tube Feeding 295 ml 380 ml Output Urine Total 1 ml Stool Total 200 ml 100 ml Hemodialysis UF 2500 ml Laboratory Tests 09/28/19 11:10: POC Whole Blood Glucose 161H 09/28/19 17:22: POC Whole Blood Glucose [Pending] 09/28/19 23:19: POC Whole Blood Glucose [Pending] 09/29/19 06:04: POC Whole Blood Glucose [Pending] Height (Feet): 5 Height (Inches): 10.00 Weight (Pounds): 120 Objective GENERAL: Ill-appearing male, chronically debilitated. HEENT: Tracheostomy in midline. Questionable fullness in the submandibular region. LUNGS: Coarse breath sounds. reduced breath sounds CARDIAC: S1, S2. Regular rate and rhythm. ABDOMEN: Soft. G-tube. EXTREMITIES: With noted edema. NEUROLOGICAL: Poorly responsive, weak diffusely. Kain Ramirez MD Sep 29, 2019 08:20
--- NOTE | 2019-09-29 08:44 | Hematology/Onc Progress Note ---
Assessment/Plan Assessment/Plan Assessment/recs # Leukocytosis - with multiple infections, VRE UTI, flow is negative --> wbc trend 33-->28-->25->23->22->23->24->17.3-->17-->14->16-->15.6-->14-->14- >13->19->18->17->22->22->19->17-->18->20-->15-->14 --> on abx, linezolid and zosyn--> zosyn-->gent-->off --> + blood cultures with coag neg staph likely contaminated --> as per id recs --> has ordered a flow cytometry (with pathology) --> does show increased nK cell activity --> JOURDAN 2 and bcr-abl labs ordered (these are send outs) --> plt 585-->613-->649-->669->663-->529-->506 # Anemia due to chronic disease/kidney disease as well, gi bleed + occult + noted --> was on iron in the past, now on hold --> has been started on Epogen sq --> as per renal care --> egd done and shows gastritis --> on ppi --> egd showed gastritis, colo recently done --> hgb 9-->8.7-->7.6-->9.2-->8.9-->9.2->9.3-->8.8->9.9-->9.2-->8.1-->8.7-->7.9- ->8.6-->8.9-->8.2->9-->9.3->8.9 # Respiratory failure --> per pulm, s/p trach --> COVID 19 test negative x 2 # Hyperlipidemia --> statin po # Dysphagia s/p gtube with nepro --> per gi # ESRD with r fem julito --> hd as per renal # Dvt ppx scds Appreciate consultation and matt Rn Subjective HEENT: Denies: no symptoms, eye pain, blurred vision, tearing, double vision, ear pain, ear discharge, nose pain, nose congestion, throat pain, throat swelling, mouth pain, mouth swelling, other Respiratory: Denies: no symptoms, cough, shortness of breath, SOB with excertion, SOB at rest, sputum, wheezing, other Gastrointestinal/Abdominal: Denies: no symptoms, abdomen distended, abdominal pain, black stools, tarry stools, blood in stool, constipated, diarrhea, difficulty swallowing, nausea, poor appetite, poor fluid intake, rectal bleeding , vomiting, other Genitourinary: Denies: no symptoms, burning, discharge, frequency, flank pain, hematuria, incontinence, pain, urgency, other Neurologic/Psychiatric: Denies: no symptoms, anxiety, depressed, emotional problems, headache, numbness, paresthesia, pre-existing deficit, seizure, tingling, tremors, weakness, other Allergies: Coded Allergies: No Known Allergies (Unverified , 06/10/19) Subjective 08/15 meds noted, no bleeding, hgb 8.8, wbc 28, path flow pending 08/16 flow pending dw pathologist, results pending, wbc 25, hgb 9 08/17 labs reviewed, meds reviewed, meds noted, no night sweats 08/19 remains obtunded, on vent/trach, no bleeding wbc 21.7 08/20 labs have been reviewed, no bleeding, wbc still elev, path reviewed 08/21 labs are noted, no bleeding, on vent, wbc better 08/22 labs noted, no bleeding, meds reviewed, wbc 24 hgb 7.6 08/23 vent, off abx, c diff negative, h/h stable 08/24 labs reviewed, on abx, wbc 17, hgb 8.9, no hemolysis 08/26 reviewed flow and is negative for leukemia, matt rn 08/27 meds reviewed, no night sweats, matt rn, no major bleeding 08/28 meds reivewed, labs noted 08/29 wbc is stable, approx 15, hgb 8.8, no hemolysis 08/30 labs are noted, is for colo today, hgb 9.9 08/31 right fem julito in place, unchanged, hgb 9.2, gi aware 09/01 labs noted, hgb 8.8, plt >600, no bleeding 09/02 labs noted, no bleeding, with elev wbc still, no new changes 09/03 meds are noted, no bleeding, labs reviewed hgb 8.6 09/04 no major events, hd as per renal, abx, no bleeding hgb low 09/05 labs are noted, no bleeding, meds have been reviewed 09/06 no new labs no hemolysis, cbc is noted, no bleeding 09/07 meds reviewed, no bleeding, matt rn, permacath functioning well 09/09 meds reviewed, wbc still elevated, as per id recs, cbc noted 09/10 is obtunded, with gutbe in place, labs reviewed 09/11 obtunded, as per id, observe now off abx, labs noted, wbc 19 09/12 cbc is pending, remains on epogen, also off abx 09/13 labs reviewed, no bleeding, elev wbc, no night sweats 09/14 meds noted, no bleeding, wbc 19, hgb 9.5, no night sweats 09/21 obtunded, remains on vent, labs noted, no bleeding, hgb 8.9 09/22 obtunded, labs noted, no bleeding, on vent, unchanged 09/23 unchanges, wbc remains elevated 20k, on abx, on vent 09/24 labs have been reviewed, no bleeding, wbc 15, may need abx 09/25 formula gtube changed, labs noted, remains obtunded, hgb 9.3 09/26 labs have been reviewed, no bleeding, matt rn, no night sweats 09/27 meds reviewed, no bleeding, wbc 14, on abx, remains obtunded 09/28 remains obtunded, no bleeding, wbc better, hgb 8.9, no hemolysis, plt 506 Objective Objective Current Medications Medications (Trade) Dose Ordered Sig/Leonel Route PRN Reason Start Time Stop Time Status Last Admin Dose Admin Acetaminophen (Tylenol) 650 mg Q4H PRN GT Mild Pain (Pain Scale 1-3) 09/21/19 12:45 10/21/19 12:44 09/28/19 11:12 Atorvastatin Calcium (Lipitor) 40 mg BEDTIME GT 08/09/19 21:00 11/07/19 20:59 09/27/19 21:00 Chlorhexidine Gluconate (Felipa-Hex 2%) 1 applic DAILY@1999 TOPIC 09/12/19 20:00 12/11/19 19:59 09/28/19 21:31 Clonidine HCl (Catapres Tab) 0.1 mg Q4H PRN GT For High Blood Pressure 09/09/19 12:30 12/08/19 05:29 09/15/19 04:10 Colistimethate Sodium (Colistin *inhalation use only*) 75 mg Q12HR@ INH 09/27/19 22:00 10/04/19 21:59 09/28/19 21:28 Dextrose (Dextrose 50%) 25 ml Q30M PRN IV Hypoglycemia 08/09/19 07:30 11/07/19 07:29 Dextrose (Dextrose 50%) 50 ml Q30M PRN IV Hypoglycemia 08/09/19 07:30 11/07/19 07:29 Diphenoxylate HCl/ Atropine (Lomotil) 2.5 mg QID PRN ORAL Diarrhea 09/24/19 08:45 10/24/19 08:44 Epoetin Andreas (Epoetin Andreas(ESRD on dialysis)) 10,000 unit WED-WED-WED SUBQ 09/20/19 21:00 12/19/19 20:59 09/27/19 21:00 Famotidine (Pepcid) 20 mg DAILY GT 08/30/19 09:00 11/28/19 08:59 09/28/19 08:48 Insulin Aspart (NovoLOG) Q6HR SUBQ 09/25/19 18:00 11/07/19 11:29 09/29/19 06:07 Lactobacillus Acidophilus (Culturelle) 1 tab TWICE A DAY GT 09/14/19 18:00 12/13/19 17:59 09/28/19 17:24 Metoprolol Tartrate (Lopressor) 200 mg Q12HR GT 08/09/19 09:00 11/07/19 08:59 09/27/19 21:00 Minoxidil (Loniten) 5 mg DAILY GT 08/09/19 09:00 11/07/19 08:59 09/27/19 09:14 Polyethylene Glycol (Miralax) 17 gm DAILY GT 09/28/19 11:00 10/28/19 10:59 09/28/19 11:11 Zinc Oxide (Zinc Oxide) 1 applic BID TOPIC 08/10/19 18:00 11/08/19 17:59 09/28/19 17:24 Last 24 Hour Vital Signs Date Time Temp Pulse Resp B/P (MAP) Pulse Ox O2 Delivery O2 Flow Rate FiO2 09/29/19 08:00 24 09/29/19 08:00 81 09/29/19 08:00 98.4 82 18 120/50 (73) 97 09/29/19 06:50 81 14 24 09/29/19 04:30 82 14 24 09/29/19 04:00 Mechanical Ventilator 09/29/19 04:00 24 09/29/19 04:00 99.1 79 24 140/58 (85) 98 09/29/19 04:00 72 09/29/19 02:40 78 12 24 09/29/19 01:13 81 16 24 09/29/19 00:00 81 09/29/19 00:00 99.0 81 24 130/56 (80) 99 09/29/19 00:00 Mechanical Ventilator 09/29/19 00:00 24 09/28/19 23:10 83 17 24 09/28/19 21:15 79 16 97 24 81 17 09/28/19 21:00 83 148/69 09/28/19 20:09 76 17 24 09/28/19 20:00 Mechanical Ventilator 09/28/19 20:00 24 09/28/19 20:00 98.2 75 23 119/56 (77) 99 09/28/19 19:26 72 09/28/19 17:54 72 17 24 09/28/19 16:00 68 09/28/19 16:00 24 09/28/19 16:00 98.2 67 24 121/51 (74) 99 09/28/19 16:00 Mechanical Ventilator 09/28/19 15:01 65 17 24 09/28/19 12:39 70 15 24 09/28/19 12:00 70 09/28/19 12:00 24 09/28/19 12:00 Mechanical Ventilator 09/28/19 12:00 98.2 71 14 116/53 (74) 100 09/28/19 11:45 100.4 09/28/19 11:42 98.2 09/28/19 10:36 72 14 24 09/28/19 09:05 65 14 24 09/28/19 08:49 70 109/48 09/28/19 08:49 109/48 09/28/19 08:00 24 09/28/19 08:00 Mechanical Ventilator 09/28/19 08:00 98.6 64 14 120/52 (74) 100 09/28/19 08:00 67 09/28/19 07:03 70 12 24 09/28/19 05:15 72 14 24 09/28/19 04:00 63 09/28/19 04:00 Mechanical Ventilator 09/28/19 04:00 24 09/28/19 04:00 98.2 64 22 129/68 (88) 99 09/28/19 03:10 64 13 24 09/28/19 01:30 70 13 24 09/28/19 00:00 Mechanical Ventilator 09/28/19 00:00 98.1 64 12 109/48 (68) 99 09/28/19 00:00 64 09/27/19 22:30 63 12 99 Mechanical Ventilator 24 66 12 24 09/27/19 21:00 71 120/50 09/27/19 20:48 71 14 24 09/27/19 20:00 73 09/27/19 20:00 98.1 72 15 120/50 (73) 97 09/27/19 20:00 Mechanical Ventilator 09/27/19 20:00 24 09/27/19 19:04 71 14 24 09/27/19 17:12 69 16 24 09/27/19 16:00 63 09/27/19 16:00 98.9 66 14 106/51 (69) 100 09/27/19 16:00 Mechanical Ventilator 09/27/19 16:00 24 09/27/19 14:48 66 17 24 09/27/19 13:02 63 12 24 09/27/19 12:00 24 09/27/19 12:00 Mechanical Ventilator 09/27/19 12:00 60 09/27/19 11:59 98.2 61 13 123/56 (78) 100 09/27/19 11:01 68 12 24 09/27/19 09:14 65 144/60 09/27/19 09:14 144/60 09/27/19 09:09 69 12 24 Intake and Output 09/28/19 09/29/19 19:00 07:00 Intake Total 445 ml 380 ml Output Total 201 ml 2600 ml Balance 244 ml -2220 ml Free Water 150 ml Tube Feeding 295 ml 380 ml Output Urine Total 1 ml Stool Total 200 ml 100 ml Hemodialysis UF 2500 ml Labs Test 09/26/19 12:15 09/26/19 18:38 09/27/19 00:07 09/27/19 05:22 POC Whole Blood Glucose 138 MG/DL (74-106) 150 MG/DL (74-106) 167 MG/DL (74-106) 107 MG/DL (74-106) Test 09/27/19 17:15 09/28/19 00:53 09/28/19 04:00 09/28/19 11:10 POC Whole Blood Glucose 146 MG/DL (74-106) 147 MG/DL (74-106) 161 MG/DL (74-106) White Blood Count 14.3 K/UL (4.8-10.8) Red Blood Count 3.58 M/UL (4.70-6.10) Hemoglobin 8.9 G/DL (14.2-18.0) Hematocrit 29.8 % (42.0-52.0) Mean Corpuscular Volume 83 FL (80-99) Mean Corpuscular Hemoglobin 24.9 PG (27.0-31.0) Mean Corpuscular Hemoglobin Concent 29.9 G/DL (32.0-36.0) Red Cell Distribution Width 17.2 % (11.6-14.8) Platelet Count 506 K/UL (150-450) Mean Platelet Volume 6.3 FL (6.5-10.1) Neutrophils (%) (Auto) 59.1 % (45.0-75.0) Lymphocytes (%) (Auto) 18.6 % (20.0-45.0) Monocytes (%) (Auto) 8.7 % (1.0-10.0) Eosinophils (%) (Auto) 12.5 % (0.0-3.0) Basophils (%) (Auto) 1.1 % (0.0-2.0) Sodium Level 128 MMOL/L (136-145) Potassium Level 3.8 MMOL/L (3.5-5.1) Chloride Level 94 MMOL/L (98-107) Carbon Dioxide Level 24 MMOL/L (21-32) Anion Gap 10 mmol/L (5-15) Blood Urea Nitrogen 73 mg/dL (7-18) Creatinine 3.8 MG/DL (0.55-1.30) Estimat Glomerular Filtration Rate 15.5 mL/min (>60) Glucose Level 165 MG/DL (74-106) Calcium Level 8.8 MG/DL (8.5-10.1) Test 09/28/19 17:22 09/28/19 23:19 09/29/19 06:04 Height (Feet): 5 Height (Inches): 10.00 Weight (Pounds): 120 Objective Physical Exam General Appearance: nad, Chronically Ill Head: normocephalic Eyes: right eye PERRL - Will not open left eye ENT: moist mucus membranes Neck: other - submandibular mass R, fairly rigid with resistance to rotation to L, tracheotomy Respiratory: decreased breath sounds, crackles, other - pacemaker, vent+ Cardiovascular: regular rate, rhythm, edema - anasarca Gastrointestinal: non tender, distended, other - G tube Genitourinary: other Musculoskeletal: other - Contractures all extremities Neurologic: sensory intact, motor weakness, responsive Psychiatric: other Skin: Decubitus/Ulcer - Stage III right elbow, stage III left elbow, stage II sacrum, stage III scrotum, warm/dry Fitz Campos MD Sep 29, 2019 08:44
[2019-09-29] MEDS: Miralax 17gm pkt GT SCH (08:58)
[2019-09-29] MEDS: Minoxidil 2.5mg tab GT SCH (08:58)
[2019-09-29] MEDS: Lactobacillus-GG tablet GT SCH ×2 (08:59→16:56)
[2019-09-29] MEDS: Metoprolol Tartrate 100mg tab GT SCH ×2 (08:59→21:00)
[2019-09-29] MEDS: Zinc Oxide Oint 2oz TOPIC SCH ×2 (08:59→16:57)
--- NOTE | 2019-09-29 09:58 | NUR ---
RADIOLOGY DEPT., CHEST X-RAY DONE.-P.DYE
--- NOTE | 2019-09-29 10:00 | NUR ---
NURSE NOTES: Family members at bedside,updated re pt's status and plans of care.
[2019-09-29] MEDS ORDERED: NS 500ML ONE (10:04)
[2019-09-29] MEDS ORDERED: NS 275ml ONE (10:04)
[2019-09-29] MEDS ORDERED: D5W 275ml ONE (10:07)
[2019-09-29] MEDS: Colistin for inhalation INH SCH ×2 (10:32→23:13)
--- NOTE | 2019-09-29 10:59 | Infectious Diseases Prog Note ---
Assessment/Plan Assessment/Plan A: 1. Pneumonia with Acinetobacter & Proteus COVID19 X2 : negative 2. ESRD on HD 3. Leukocytosis 4. Respiratory failure, Ventilator dependent 5. Anemia 6. Anasarca 7. 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 Klebsiella catheter infection s/p removal 10. Diarrhea, C. difficile negative PLAN: 1. Continue Colistin inhaler Subjective ROS Limited/Unobtainable: Yes Constitutional: Denies: fever Allergies: Coded Allergies: No Known Allergies (Unverified , 06/10/19) Objective Last 24 Hour Vital Signs Date Time Temp Pulse Resp B/P (MAP) Pulse Ox O2 Delivery O2 Flow Rate FiO2 09/29/19 10:47 73 12 100 24 73 12 09/29/19 08:59 81 120/50 09/29/19 08:58 120/50 09/29/19 08:00 24 09/29/19 08:00 81 09/29/19 08:00 98.4 82 18 120/50 (73) 97 09/29/19 06:50 81 14 24 09/29/19 04:30 82 14 24 09/29/19 04:00 Mechanical Ventilator 09/29/19 04:00 24 09/29/19 04:00 99.1 79 24 140/58 (85) 98 09/29/19 04:00 72 09/29/19 02:40 78 12 24 09/29/19 01:13 81 16 24 09/29/19 00:00 81 09/29/19 00:00 99.0 81 24 130/56 (80) 99 09/29/19 00:00 Mechanical Ventilator 09/29/19 00:00 24 09/28/19 23:10 83 17 24 09/28/19 21:15 79 16 97 24 81 17 09/28/19 21:00 83 148/69 09/28/19 20:09 76 17 24 09/28/19 20:00 Mechanical Ventilator 09/28/19 20:00 24 09/28/19 20:00 98.2 75 23 119/56 (77) 99 09/28/19 19:26 72 09/28/19 17:54 72 17 24 09/28/19 16:00 68 09/28/19 16:00 24 09/28/19 16:00 98.2 67 24 121/51 (74) 99 09/28/19 16:00 Mechanical Ventilator 09/28/19 15:01 65 17 24 09/28/19 12:39 70 15 24 09/28/19 12:00 70 09/28/19 12:00 24 09/28/19 12:00 Mechanical Ventilator 09/28/19 12:00 98.2 71 14 116/53 (74) 100 09/28/19 11:45 100.4 09/28/19 11:42 98.2 Height (Feet): 5 Height (Inches): 10.00 Weight (Pounds): 120 HEENT: status post trach Respiratory/Chest: lungs clear, other - on ventilator Cardiovascular: normal rate Abdomen: soft, non tender, other - GT feeding Extremities: no edema Neurologic/Psychiatric: aphasia Laboratory Tests Test 09/28/19 11:10 09/28/19 17:22 09/28/19 23:19 09/29/19 06:04 POC Whole Blood Glucose 161 MG/DL (74-106) H Pending Pending Pending Current Medications Medications (Trade) Dose Ordered Sig/Leonel Route PRN Reason Start Time Stop Time Status Last Admin Dose Admin Acetaminophen (Tylenol) 650 mg Q4H PRN GT Mild Pain (Pain Scale 1-3) 09/21/19 12:45 10/21/19 12:44 09/28/19 11:12 Atorvastatin Calcium (Lipitor) 40 mg BEDTIME GT 08/09/19 21:00 11/07/19 20:59 09/27/19 21:00 Chlorhexidine Gluconate (Felipa-Hex 2%) 1 applic DAILY@1999 TOPIC 09/12/19 20:00 12/11/19 19:59 09/28/19 21:31 Clonidine HCl (Catapres Tab) 0.1 mg Q4H PRN GT For High Blood Pressure 09/09/19 12:30 12/08/19 05:29 09/15/19 04:10 Colistimethate Sodium (Colistin *inhalation use only*) 75 mg Q12HR@, INH 09/27/19 22:00 10/04/19 21:59 09/29/19 10:32 Dextrose (Dextrose 50%) 25 ml Q30M PRN IV Hypoglycemia 08/09/19 07:30 11/07/19 07:29 Dextrose (Dextrose 50%) 50 ml Q30M PRN IV Hypoglycemia 08/09/19 07:30 11/07/19 07:29 Diphenoxylate HCl/ Atropine (Lomotil) 2.5 mg QID PRN ORAL Diarrhea 09/24/19 08:45 10/24/19 08:44 Epoetin Andreas (Epoetin Andreas(ESRD on dialysis)) 10,000 unit SUBQ 09/20/19 21:00 12/19/19 20:59 09/27/19 21:00 Famotidine (Pepcid) 20 mg DAILY GT 08/30/19 09:00 11/28/19 08:59 09/29/19 08:58 Insulin Aspart (NovoLOG) Q6HR SUBQ 09/25/19 18:00 11/07/19 11:29 09/29/19 06:07 Lactobacillus Acidophilus (Culturelle) 1 tab TWICE A DAY GT 09/14/19 18:00 12/13/19 17:59 09/29/19 08:59 Metoprolol Tartrate (Lopressor) 200 mg Q12HR GT 08/09/19 09:00 11/07/19 08:59 09/29/19 08:59 Minoxidil (Loniten) 5 mg DAILY GT 08/09/19 09:00 11/07/19 08:59 09/29/19 08:58 Polyethylene Glycol (Miralax) 17 gm DAILY GT 09/28/19 11:00 10/28/19 10:59 09/29/19 08:58 Zinc Oxide (Zinc Oxide) 1 applic BID TOPIC 08/10/19 18:00 11/08/19 17:59 09/29/19 08:59 Real De Leon MD Sep 29, 2019 10:59
--- NOTE | 2019-09-29 11:36 | Surgery Progress Note ---
Surgery Progress Note Subjective Procedure Performed Right femoral temporary hemodialysis catheter removal Additional Comments no acute events remains unchanged not responsive on support labs noted Objective Last 24 Hour Vital Signs Date Time Temp Pulse Resp B/P (MAP) Pulse Ox O2 Delivery O2 Flow Rate FiO2 09/29/19 10:47 73 12 100 24 73 12 09/29/19 08:59 81 120/50 09/29/19 08:58 120/50 09/29/19 08:00 24 09/29/19 08:00 81 09/29/19 08:00 Mechanical Ventilator 09/29/19 08:00 98.4 82 18 120/50 (73) 97 09/29/19 06:50 81 14 24 09/29/19 04:30 82 14 24 09/29/19 04:00 Mechanical Ventilator 09/29/19 04:00 24 09/29/19 04:00 99.1 79 24 140/58 (85) 98 09/29/19 04:00 72 09/29/19 02:40 78 12 24 09/29/19 01:13 81 16 24 09/29/19 00:00 81 09/29/19 00:00 99.0 81 24 130/56 (80) 99 09/29/19 00:00 Mechanical Ventilator 09/29/19 00:00 24 09/28/19 23:10 83 17 24 09/28/19 21:15 79 16 97 24 81 17 09/28/19 21:00 83 148/69 09/28/19 20:09 76 17 24 09/28/19 20:00 Mechanical Ventilator 09/28/19 20:00 24 09/28/19 20:00 98.2 75 23 119/56 (77) 99 09/28/19 19:26 72 09/28/19 17:54 72 17 24 09/28/19 16:00 68 09/28/19 16:00 24 09/28/19 16:00 98.2 67 24 121/51 (74) 99 09/28/19 16:00 Mechanical Ventilator 09/28/19 15:01 65 17 24 09/28/19 12:39 70 15 24 09/28/19 12:00 70 09/28/19 12:00 24 09/28/19 12:00 Mechanical Ventilator 09/28/19 12:00 98.2 71 14 116/53 (74) 100 09/28/19 11:45 100.4 09/28/19 11:42 98.2 I&O Intake and Output 09/28/19 09/29/19 19:00 07:00 Intake Total 445 ml 380 ml Output Total 201 ml 2600 ml Balance 244 ml -2220 ml Free Water 150 ml Tube Feeding 295 ml 380 ml Output Urine Total 1 ml Stool Total 200 ml 100 ml Hemodialysis UF 2500 ml Dressing: saturated Cardiovascular: RSR Respiratory: decreased breath sounds Abdomen: soft, non-tender, present bowel sounds Extremities: no edema, no tenderness, no cyanosis Laboratory Tests Test 09/28/19 17:22 09/28/19 23:19 09/29/19 06:04 POC Whole Blood Glucose Pending Pending Pending Plan Problems: (1) Anemia (2) Hyponatremia (3) Leukocytosis Assessment & Plan: Tracheostomy, left chest pacemaker are again demonstrated. There is bilateral interstitial and airspace disease and bilateral pleural fluid again demonstrated. This appears more severe than on the prior study. Bilateral interstitial and airspace infiltrates versus edema. Bilateral pleural effusions Leukocytosis, anemia, tachycardia, abnormal labs. Wound evaluated and likely etiology of patient's sepsis. Leukocytosis etiology work-up antibiotics per infectious disease Appreciate nephrology input transfuse with dialysis We will follow with recommendations thank you allowing participation's care plan HD access temp HD discussed with medical teams line okay HD as per renal persistent leukocytosis flow cyto noted improving trending down right fem line removed (4) Ventilator dependent (5) Right lower lobe pneumonia (6) Hypokalemia (7) Hyperkalemia (8) Anasarca (9) Decubitus skin ulcer Assessment & Plan: pt presented on admission with generalized edemae.Skin assessed under tracheostomy and no areas of concerns noted. GT Insertion is marginally erythematous with small amt slough at stoma. Unstageable Pressure Injury R elbow. Base of wound is 100% yellow slough, Borders are erythematous. Wound oozing small amt haemopurulent exudate.Darker skin tone without elevation in skin temp or erythema periwound. Pt's penis and scrotum are grossly edematous and enlarged and weeping serous exudate from numerous sites both from penis and scrotum. Two small open wounds noted at base of at base of shaft of penis ,and contreras aspect of scrotum. Both wounds oozing large amt sanguineous and serosanguineous exudate. Multiple open wounds with Biofilm at base of each wounds noted to contreras/lateral,inferior and posterior aspects of scrotum. These wounds noted to be oozing moderate amts of serosanguineous exudate. Hypertrophic scar with scattered areas of hyperpigmentation noted to Sacrum. DTPI noted to L Buttocks (L)7cm x (W)9cm. Base of wound is purple and indurated.Darker skin tone without erythema, induration or fluctuance R and L ischial tuberosities. Both heels are boggy with non-blanchable erythema. Tx.Plan: Cleanse wound R elbow with Saline. Apply TheraHoney, Apply Moisture Barrier Paste periwound. Cover with Optifoam drsg.Change Daily and prn. Wash GT site with soap and water.Pat dry. Apply Zinc Oxide Paste to GT site Daily. Leave Open to Air. Apply Zinc Oxide Paste to entire Scrotum, Place ABD pads to R and L lateral, and posterior aspects of scrotum TWICE daily. Apply Cavilon Skin Barrier to malleoli and both Heels. Cover each site with Optifoam drsgs. Change every 7 days and prn. Reposition at least every 2hours or as tolerated. Off-load heels with Pillows. APM/BECCA Mattress overlay. (10) Malnutrition Assessment & Plan: DAILY ESTIMATED NEEDS: Needs based on Renal, critical care, wound/ 61kg 22-30 kcals/kg [id number] total kcals 1.25-2 g protein/kg 76-122 g total protein Fluid per MD, now on HD NUTRITION DIAGNOSIS: * Swallowing difficulty R/T respiratory failure, dysphagia as evidenced by trach/vent dep, PEG dep * Increased kcal/prot needs R/T wound healing as evidenced by admitted w/ multiple pressure injuries including full thickness wounds at junction of Shaft of penis, dorsal scrotum, R elbow, and DTPI @ L buttocks. CURRENT TF:Vital AF 1.2 @ 50ml/hr x 24 hrs + Garo BID ENTERAL NUTRITION RECOMMENDATIONS: Vital AF 1.2 @ 60ml/hr x 20 hrs to provide 1200ml, 1440kcal, 90g prot, 973ml free water * Rec 20 hr run time for GI rest. Increase TF to goal of 60ml/hr for 20 hrs to meet est needs. -> monitor lytes and renal fxn closely, monitor need for renal TF -> TF @ goal will provide 1642mg K and 2025mg Phos * HOB over 30 degrees/ water flush per MD -------- Pt continues to have loose stool, rectal tube. Trial of Osmolite 1.2 w/ goal of 60ml/hr for 20 hrs (4 hrs bowel rest) to provide 1200ml, 1440 kcal, 67g pro, 984ml free H2O, -> Rec to add prosource 1 pack daily (11g pro) to better meet est pro needs. -> Monitor BG, K closely. Pt would require increased insulin coverage as TF at goal would provide 56g more carbs per day. ------- ADDITIONAL RECOMMENDATIONS: * Per SNF: HT=63" JA=857 lbs (vs EMR wt of 166lbs) -> obtain re-calibrated bedscale wt, rec daily wt monitoring * Wound healing: con't Nephrovite + Garo BID/ Vit C dosing per Nephro * Monitor renal fxn and lytes closely w/ non-renal TF -> K low, phos wnl; rec updated mag level. * Daily wts w/ drop to 118-20 lbs, rec to recalibrate for accurate CBW * Consider adding anti-diarrheal med +rectal tube-> now on imodium (11) Uremia (12) CKD (chronic kidney disease) stage 5, GFR less than 15 ml/min (13) Colon distention Assessment & Plan: discussed with GI likely functional as having lots of loose bm rectal tube kub f/u s/p colonoscopy - findings reviewed with GI Marked distention of the sigmoid colon. 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 No evidence of bowel wall thickening or pneumatosis 12 mm focus of contrast enhancement in the right pectineus muscle. While nonspecific in appearance, appearance raises concern for a possible pseudoaneurysm. Ill- defined thickening of the pectus medius muscle could indicate some intramuscular hemorrhage. The above findings were phoned to Dr. Urias at the time of interpretation Large bilateral pleural effusions Hazy pulmonary parenchymal opacities as well as dense consolidative opacities most likely represent pulmonary edema, but could represent pneumonia Evidence of anasarca elsewhere, with generalized edema of the subcutaneous fat Bladder wall thickening, raises concern for cystitis. Avalos catheter in place Colonic diverticulosis. No evidence of diverticulitis. Tracheostomy Pacemaker Gastrostomy Jonathan Urias Sep 29, 2019 11:36
--- NOTE | 2019-09-29 12:05 | Diagnostic Imaging Report ---
Indication: Shortness of breath Technique: One view of the chest Comparison: 09/16/2019 Findings: Bilateral pleural effusions, right greater than left, appears slightly increased from the prior exam. Bilateral interstitial and airspace edema persists, unchanged. Left chest pacemaker, right jugular tunneled dialysis catheter, tracheostomy remains. Impression: Bilateral pleural effusions, slightly increased from prior study of 09/16/2019 Bilateral interstitial and airspace edema, appearing similar to the prior exam Other stable findings as described
--- NOTE | 2019-09-29 13:00 | NUR ---
NURSE NOTES: Oral care done,tracheal/oral secretions suctioned PRN.PUlled up turned and repositioned
--- NOTE | 2019-09-29 13:16 | NUR ---
DISCHARGE PLANNING: NOTE VM LEFT FOR HARPER AT [facility]10- HARPER IS GONE FOR THE DAY. ELIDA IS COVERING FOR HER X 1315. CM S/W ELIDA REGARDING DIGNITY AUTH. DIGNITY STILL HAS YET TO SIGN THE MARIS[facility]EL. CASE HAS BEEN ESCALATED BY [facility] F/U CALL PLACED TO [facility] UNABLE TO REACH ADMISSIONS. CM WILL CONTINUE TO F/U WITH [facility]
--- NOTE | 2019-09-29 14:03 | Nephrology Progress Note ---
Assessment/Plan Plan MOF Established ESRD - HD now TTS. Anemia of CKD -TUYET. Subjective Subjective Obtunded. Objective Objective Last 24 Hour Vital Signs Date Time Temp Pulse Resp B/P (MAP) Pulse Ox O2 Delivery O2 Flow Rate FiO2 09/29/19 12:09 Mechanical Ventilator 09/29/19 12:07 98.8 72 19 127/61 (83) 99 09/29/19 12:00 24 09/29/19 11:29 73 09/29/19 10:47 73 12 100 24 73 12 09/29/19 08:59 81 120/50 09/29/19 08:58 120/50 09/29/19 08:00 24 09/29/19 08:00 81 09/29/19 08:00 Mechanical Ventilator 09/29/19 08:00 98.4 82 18 120/50 (73) 97 09/29/19 06:50 81 14 24 09/29/19 04:30 82 14 24 09/29/19 04:00 Mechanical Ventilator 09/29/19 04:00 24 09/29/19 04:00 99.1 79 24 140/58 (85) 98 09/29/19 04:00 72 09/29/19 02:40 78 12 24 09/29/19 01:13 81 16 24 09/29/19 00:00 81 09/29/19 00:00 99.0 81 24 130/56 (80) 99 09/29/19 00:00 Mechanical Ventilator 09/29/19 00:00 24 09/28/19 23:10 83 17 24 09/28/19 21:15 79 16 97 24 81 17 09/28/19 21:00 83 148/69 09/28/19 20:09 76 17 24 09/28/19 20:00 Mechanical Ventilator 09/28/19 20:00 24 09/28/19 20:00 98.2 75 23 119/56 (77) 99 09/28/19 19:26 72 09/28/19 17:54 72 17 24 09/28/19 16:00 68 09/28/19 16:00 24 09/28/19 16:00 98.2 67 24 121/51 (74) 99 09/28/19 16:00 Mechanical Ventilator 09/28/19 15:01 65 17 24 Intake and Output 09/28/19 09/29/19 19:00 07:00 Intake Total 445 ml 380 ml Output Total 201 ml 2600 ml Balance 244 ml -2220 ml Free Water 150 ml Tube Feeding 295 ml 380 ml Output Urine Total 1 ml Stool Total 200 ml 100 ml Hemodialysis UF 2500 ml Laboratory Tests 09/28/19 17:22: POC Whole Blood Glucose [Pending] 09/28/19 23:19: POC Whole Blood Glucose [Pending] 09/29/19 06:04: POC Whole Blood Glucose [Pending] 09/29/19 12:21: POC Whole Blood Glucose [Pending] Height (Feet): 5 Height (Inches): 10.00 Weight (Pounds): 120 Objective CV RR Trach clean Lungs CTA New Perma Cath RIJ. Abd SNT. BS + E No CCE Erica Pichardo MD Sep 29, 2019 14:03
--- NOTE | 2019-09-29 14:30 | NUR ---
NURSE NOTES: Dr caballero at bedside,seen pt,Hemodialysis ordered for tomorrow.
--- NOTE | 2019-09-29 17:14 | NUR ---
CASE MANAGEMENT: REVIEW 09/29/2019 SI;SEPSIS. VS: T 98.8 HR 72 RR 19 B/P 127/61 SATS 99% ON MECH VENT FIO2 24 LABS: GLU 213 IS;LIPITOR PO QHS LONITEN GT QD LOPRESSOR GT Q12H INSULIN ASPART SUBQ Q6H SDU
--- NOTE | 2019-09-29 17:15 | NUR ---
INSURANCE UPDATED CLINICALS AND REVIEWS HAVE BEEN FAXED TO: ELIN / [facility] REF# [id number] RIC:HARPER P:[phone] F:[phone]
--- NOTE | 2019-09-29 19:00 | NUR ---
NURSE HAND-OFF REPORT: Important Events on Shift:N/A Patient Status: stable,afebrile Diet: Osmolite 1.2 at 60 ml/hr x20 hrs GT Pending Orders: Hemodialysis tomorrow [facility] Pending Results/Labs:N/A Pending MD notification:N/A Latest Vital Signs: Temperature 98.6 , Pulse 82 , B/P 99 /47 , Respiratory Rate 14 , O2 SAT 97 , Mechanical Ventilator, O2 Flow Rate 15.0 . Vital Sign Comment: stable EKG Rhythm: V-Paced Rhythm change?: N MD Notified?: N - MD Response: Latest Delacruz Fall Score: 70 Fall Risk: High Risk Safety Measures: Call light Within Reach, Bed Alarm Zone 1, Side Rails Side Rails x3, Bed position Low and Locked. Fall Precautions: Yellow Socks Yellow Gown Door Sign Patient Fall Education Report given to .Brunilda Armas RN.
--- NOTE | 2019-09-29 19:50 | NUR ---
NURSE NOTES: Received pt from TAMICA Ennis. Pt asleep but easily aroused. GT feeding off. IV site intact. P2oo mattress inflated. Bed alarm on and in lowest position. Call light within reach. Will continue to monitor.
[2019-09-29] MEDS: Dyna-Hex 2% Top Sol 2oz TOPIC SCH (20:00)
[2019-09-29] MEDS: Atorvastatin 20mg tab GT SCH (21:00)
[2019-09-29] MEDS: Epoetin Alfa-EPBX(ESRD on dialysis)10,000 unit/ml vial SUBQ SCH (21:00)
--- NOTE | 2019-09-29 21:22 | General Progress Note ---
Assessment/Plan Assessment/Plan: Assessment - abdominal distention, due to colonic dysmotility, - colonoscopy negative to hepatic flexure - diarrhea - presumed TF related - abnormal LFT - Anemia - leukocytosis - stool OB (+) - EGD --> gastritis - Renal failure - Anasarca - resp failure, trach - dysphagia, GT - encephalopathy, contracted - poor px Recommendations - continue TF - rectal tube - roll side to side as feasible (hard due to severe contractions) - Elevate HOB - f/u labs - PPI - abx - supportive care Subjective Allergies: Coded Allergies: No Known Allergies (Unverified , 06/10/19) Subjective above noted tolerating feeds liquid stool in rectal tube bag Objective Last 24 Hour Vital Signs Date Time Temp Pulse Resp B/P (MAP) Pulse Ox O2 Delivery O2 Flow Rate FiO2 09/29/19 19:38 82 14 24 09/29/19 16:13 Mechanical Ventilator 09/29/19 16:01 98.6 77 19 99/47 (64) 97 09/29/19 16:00 77 09/29/19 16:00 24 09/29/19 15:20 77 14 24 09/29/19 12:09 Mechanical Ventilator 09/29/19 12:07 98.8 72 19 127/61 (83) 99 09/29/19 12:00 24 09/29/19 11:29 73 09/29/19 10:47 73 12 100 24 73 12 09/29/19 08:59 81 120/50 09/29/19 08:58 120/50 09/29/19 08:00 24 09/29/19 08:00 81 09/29/19 08:00 Mechanical Ventilator 09/29/19 08:00 98.4 82 18 120/50 (73) 97 09/29/19 06:50 81 14 24 09/29/19 04:30 82 14 24 09/29/19 04:00 Mechanical Ventilator 09/29/19 04:00 24 09/29/19 04:00 99.1 79 24 140/58 (85) 98 09/29/19 04:00 72 09/29/19 02:40 78 12 24 09/29/19 01:13 81 16 24 09/29/19 00:00 81 09/29/19 00:00 99.0 81 24 130/56 (80) 99 09/29/19 00:00 Mechanical Ventilator 09/29/19 00:00 24 09/28/19 23:10 83 17 24 Intake and Output 09/28/19 09/29/19 19:00 07:00 Intake Total 445 ml 430 ml Output Total 201 ml 2600 ml Balance 244 ml -2170 ml Free Water 150 ml Tube Feeding 295 ml 430 ml Output Urine Total 1 ml Stool Total 200 ml 100 ml Hemodialysis UF 2500 ml Laboratory Tests 09/28/19 23:19: POC Whole Blood Glucose [Pending] 09/29/19 06:04: POC Whole Blood Glucose [Pending] 09/29/19 12:21: POC Whole Blood Glucose [Pending] 09/29/19 16:55: POC Whole Blood Glucose 213H Height (Feet): 5 Height (Inches): 10.00 Weight (Pounds): 120 Objective Debilitated AA man NCAT (+) trach coarse BS RR abd less distended, anasarca, (+) GT, (+) rectal tube ext (+) edema contracted Ronny Mustafa MD Sep 29, 2019 21:22
--- NOTE | 2019-09-29 21:50 | NUR ---
NURSE NOTES: Began Osmolyte feeding at 60. Pt tolerating well. Will continue to monitor.
[2019-09-30 04:00] VITALS: BP 117/53
[2019-09-30] MEDS: Acetaminophen 650mg/20.3ml GT PRN (05:22)
[2019-09-30] MEDS: NovoLOG Insulin Flexpen SUBQ SCH ×4 (05:25→23:29)
--- NOTE | 2019-09-30 06:51 | General Progress Note ---
Assessment/Plan Assessment/Plan: Assessment - abdominal distention, due to colonic dysmotility, - colonoscopy negative to hepatic flexure - diarrhea - presumed TF related - abnormal LFT - Anemia - leukocytosis - stool OB (+) - EGD --> gastritis - Renal failure - Anasarca - resp failure, trach - dysphagia, GT - encephalopathy, contracted - poor px Recommendations - continue TF - rectal tube - roll side to side as feasible (hard due to severe contractions) - Elevate HOB - f/u labs - PPI - abx - supportive care Subjective ROS Limited/Unobtainable: No Allergies: Coded Allergies: No Known Allergies (Unverified , 06/10/19) Objective Last 24 Hour Vital Signs Date Time Temp Pulse Resp B/P (MAP) Pulse Ox O2 Delivery O2 Flow Rate FiO2 09/30/19 04:00 Mechanical Ventilator 09/30/19 04:00 100.4 85 19 117/53 (74) 98 09/30/19 04:00 24 09/30/19 03:30 84 12 24 09/30/19 00:00 Mechanical Ventilator 09/30/19 00:00 91 09/30/19 00:00 24 09/29/19 23:13 87 12 100 24 73 12 24 09/29/19 23:02 99.5 89 19 128/61 (83) 96 09/29/19 20:00 Mechanical Ventilator 09/29/19 20:00 82 09/29/19 20:00 98.6 85 19 120/53 (75) 95 09/29/19 19:38 82 14 24 09/29/19 16:13 Mechanical Ventilator 09/29/19 16:01 98.6 77 19 99/47 (64) 97 09/29/19 16:00 77 09/29/19 16:00 24 09/29/19 15:20 77 14 24 09/29/19 12:09 Mechanical Ventilator 09/29/19 12:07 98.8 72 19 127/61 (83) 99 09/29/19 12:00 24 09/29/19 11:29 73 09/29/19 10:47 73 12 100 24 73 12 09/29/19 08:59 81 120/50 09/29/19 08:58 120/50 09/29/19 08:00 24 09/29/19 08:00 81 09/29/19 08:00 Mechanical Ventilator 09/29/19 08:00 98.4 82 18 120/50 (73) 97 Intake and Output 09/29/19 09/30/19 19:00 07:00 Intake Total 890 ml 540 ml Output Total 700 ml Balance 890 ml -160 ml Free Water 220 ml Tube Feeding 490 ml 540 ml Other 180 ml Stool Total 700 ml # Bowel Movements 100 Laboratory Tests 09/29/19 12:21: POC Whole Blood Glucose [Pending] 09/29/19 16:55: POC Whole Blood Glucose 213H 09/29/19 21:42: POC Whole Blood Glucose [Pending] 09/30/19 05:13: POC Whole Blood Glucose [Pending] Height (Feet): 5 Height (Inches): 10.00 Weight (Pounds): 134 General Appearance: no apparent distress EENT: normal ENT inspection Neck: supple Cardiovascular: normal rate Respiratory/Chest: decreased breath sounds Abdomen: soft, hypoactive bowel sounds, distended Extremities: non-tender Deon Landry MD Sep 30, 2019 06:51
--- NOTE | 2019-09-30 07:08 | NUR ---
NURSE HAND-OFF REPORT: Important Events on Shift: pt GT Feeding was continued at 9pm and is tolerating well Patient Status: stable Diet: osmolyte 1.2 Pending Orders: n Pending Results/Labs:n Pending MD notification: n Latest Vital Signs: Temperature 100.4 , Pulse 86 , B/P 117 /53 , Respiratory Rate 19 , O2 SAT 98 , Mechanical Ventilator, O2 Flow Rate 15.0 . Vital Sign Comment: gave tylenol for fever EKG Rhythm: V-Paced Rhythm change?: N MD Notified?: N - MD Response: Latest Delacruz Fall Score: 70 Fall Risk: High Risk Safety Measures: Call light Within Reach, Bed Alarm Zone 1, Side Rails Side Rails x3, Bed position Low and Locked. Fall Precautions: y Yellow Socks n Yellow Gown n Door Sign y Patient Fall Education y Report given to TAMICA Espino
--- NOTE | 2019-09-30 07:15 | NUR ---
NURSE NOTES: Received report from TAMICA Worley. Patient is resting in bed, in stable condition. No s/sx of SOB, breathing is even and unlabored, vent settings are as ordered. Patient is nonverbal, observed no presence of pain or discomfort at this time. Bed is in lowest position, brakes engaged. Call light is kept within easy reach. Will continue to monitor patient.
[2019-09-30 07:49] LABS: BASOPHILS % (AUTO) 1.1 % (0.0-2.0); EOSINOPHILS % (AUTO) 6.6 % (0.0-3.0); HEMATOCRIT 31.8 % (42.0-52.0); HEMOGLOBIN 9.7 G/DL (14.2-18.0); LYMPHOCYTES % (AUTO) 22.7 % (20.0-45.0); MEAN CORPUSCULAR VOLUME 83 FL (80-99); NEUTROPHILS % (AUTO) 58.6 % (45.0-75.0); PLATELET COUNT 474 K/UL (150-450); RED BLOOD COUNT 3.84 M/UL (4.70-6.10); WHITE BLOOD COUNT 17.2 K/UL (4.8-10.8)
[2019-09-30 08:00] VITALS: BP 100/43
[2019-09-30 08:10] LABS: ANION GAP 11 mmol/L (5-15); BLOOD UREA NITROGEN 72 mg/dL (7-18); CALCIUM 8.9 MG/DL (8.5-10.1); CARBON DIOXIDE 26 MMOL/L (21-32); CHLORIDE 93 MMOL/L (98-107); CREATININE 3.8 MG/DL (0.55-1.30); POTASSIUM 3.8 MMOL/L (3.5-5.1); SODIUM 130 MMOL/L (136-145)
[2019-09-30] MEDS: Miralax 17gm pkt GT SCH (08:20)
[2019-09-30] MEDS: Lactobacillus-GG tablet GT SCH ×2 (08:21→17:42)
[2019-09-30] MEDS: Minoxidil 2.5mg tab GT SCH (08:21)
[2019-09-30] MEDS: Metoprolol Tartrate 100mg tab GT SCH ×2 (08:21→20:05)
[2019-09-30] MEDS: Zinc Oxide Oint 2oz TOPIC SCH ×2 (08:22→17:42)
[2019-09-30] MEDS: Colistin for inhalation INH SCH ×2 (08:52→21:30)
--- NOTE | 2019-09-30 09:39 | Surgery Progress Note ---
Surgery Progress Note Subjective Procedure Performed Right femoral temporary hemodialysis catheter removal Symptoms: other Objective Last 24 Hour Vital Signs Date Time Temp Pulse Resp B/P (MAP) Pulse Ox O2 Delivery O2 Flow Rate FiO2 09/30/19 08:43 78 13 99 24 74 13 24 09/30/19 08:00 98.4 78 19 100/43 (62) 98 09/30/19 08:00 24 09/30/19 08:00 Mechanical Ventilator 09/30/19 08:00 76 09/30/19 07:30 78 12 24 09/30/19 05:52 98.4 09/30/19 04:00 Mechanical Ventilator 09/30/19 04:00 86 09/30/19 04:00 100.4 85 19 117/53 (74) 98 09/30/19 04:00 24 09/30/19 03:30 84 12 24 09/30/19 00:00 Mechanical Ventilator 09/30/19 00:00 91 09/30/19 00:00 24 09/29/19 23:13 87 12 100 24 73 12 24 09/29/19 23:02 99.5 89 19 128/61 (83) 96 09/29/19 20:00 Mechanical Ventilator 09/29/19 20:00 82 09/29/19 20:00 98.6 85 19 120/53 (75) 95 09/29/19 19:38 82 14 24 09/29/19 16:13 Mechanical Ventilator 09/29/19 16:01 98.6 77 19 99/47 (64) 97 09/29/19 16:00 77 09/29/19 16:00 24 09/29/19 15:20 77 14 24 09/29/19 12:09 Mechanical Ventilator 09/29/19 12:07 98.8 72 19 127/61 (83) 99 09/29/19 12:00 24 09/29/19 11:29 73 09/29/19 10:47 73 12 100 24 73 12 I&O Intake and Output 09/29/19 09/30/19 19:00 07:00 Intake Total 890 ml 540 ml Output Total 700 ml Balance 890 ml -160 ml Free Water 220 ml Tube Feeding 490 ml 540 ml Other 180 ml Stool Total 700 ml # Bowel Movements 100 Dressing: dry Cardiovascular: RSR Respiratory: decreased breath sounds Abdomen: soft, non-tender, present bowel sounds Extremities: no cyanosis Laboratory Tests Test 09/29/19 12:21 09/29/19 16:55 09/29/19 21:42 09/30/19 05:13 POC Whole Blood Glucose Pending 213 MG/DL (74-106) H Pending Pending Test 09/30/19 05:50 White Blood Count 17.2 K/UL (4.8-10.8) H Red Blood Count 3.84 M/UL (4.70-6.10) L Hemoglobin 9.7 G/DL (14.2-18.0) L Hematocrit 31.8 % (42.0-52.0) L Mean Corpuscular Volume 83 FL (80-99) Mean Corpuscular Hemoglobin 25.2 PG (27.0-31.0) L Mean Corpuscular Hemoglobin Concent 30.4 G/DL (32.0-36.0) L Red Cell Distribution Width 17.0 % (11.6-14.8) H Platelet Count 474 K/UL (150-450) H Mean Platelet Volume 5.9 FL (6.5-10.1) L Neutrophils (%) (Auto) 58.6 % (45.0-75.0) Lymphocytes (%) (Auto) 22.7 % (20.0-45.0) Monocytes (%) (Auto) 11.0 % (1.0-10.0) H Eosinophils (%) (Auto) 6.6 % (0.0-3.0) H Basophils (%) (Auto) 1.1 % (0.0-2.0) Sodium Level 130 MMOL/L (136-145) L Potassium Level 3.8 MMOL/L (3.5-5.1) Chloride Level 93 MMOL/L (98-107) L Carbon Dioxide Level 26 MMOL/L (21-32) Anion Gap 11 mmol/L (5-15) Blood Urea Nitrogen 72 mg/dL (7-18) H Creatinine 3.8 MG/DL (0.55-1.30) H Estimat Glomerular Filtration Rate 15.5 mL/min (>60) Glucose Level 184 MG/DL (74-106) H Calcium Level 8.9 MG/DL (8.5-10.1) Plan Problems: (1) Anemia (2) Hyponatremia (3) Leukocytosis Assessment & Plan: Tracheostomy, left chest pacemaker are again demonstrated. There is bilateral interstitial and airspace disease and bilateral pleural fluid again demonstrated. This appears more severe than on the prior study. Bilateral interstitial and airspace infiltrates versus edema. Bilateral pleural effusions Leukocytosis, anemia, tachycardia, abnormal labs. Wound evaluated and likely etiology of patient's sepsis. Leukocytosis etiology work-up antibiotics per infectious disease Appreciate nephrology input transfuse with dialysis We will follow with recommendations thank you allowing participation's care plan HD access temp HD discussed with medical teams line okay HD as per renal persistent leukocytosis flow cyto noted improving trending down right fem line removed (4) Ventilator dependent (5) Right lower lobe pneumonia (6) Hypokalemia (7) Hyperkalemia (8) Anasarca (9) Decubitus skin ulcer Assessment & Plan: pt presented on admission with generalized edemae.Skin assessed under tracheostomy and no areas of concerns noted. GT Insertion is marginally erythematous with small amt slough at stoma. Unstageable Pressure Injury R elbow. Base of wound is 100% yellow slough, Borders are erythematous. Wound oozing small amt haemopurulent exudate.Darker skin tone without elevation in skin temp or erythema periwound. Pt's penis and scrotum are grossly edematous and enlarged and weeping serous exudate from numerous sites both from penis and scrotum. Two small open wounds noted at base of at base of shaft of penis ,and contreras aspect of scrotum. Both wounds oozing large amt sanguineous and serosanguineous exudate. Multiple open wounds with Biofilm at base of each wounds noted to contreras/lateral,inferior and posterior aspects of scrotum. These wounds noted to be oozing moderate amts of serosanguineous exudate. Hypertrophic scar with scattered areas of hyperpigmentation noted to Sacrum. DTPI noted to L Buttocks (L)7cm x (W)9cm. Base of wound is purple and indurated.Darker skin tone without erythema, induration or fluctuance R and L ischial tuberosities. Both heels are boggy with non-blanchable erythema. Tx.Plan: Cleanse wound R elbow with Saline. Apply TheraHoney, Apply Moisture Barrier Paste periwound. Cover with Optifoam drsg.Change Daily and prn. Wash GT site with soap and water.Pat dry. Apply Zinc Oxide Paste to GT site Daily. Leave Open to Air. Apply Zinc Oxide Paste to entire Scrotum, Place ABD pads to R and L lateral, and posterior aspects of scrotum TWICE daily. Apply Cavilon Skin Barrier to malleoli and both Heels. Cover each site with Optifoam drsgs. Change every 7 days and prn. Reposition at least every 2hours or as tolerated. Off-load heels with Pillows. APM/BECCA Mattress overlay. (10) Malnutrition Assessment & Plan: DAILY ESTIMATED NEEDS: Needs based on Renal, critical care, wound/ 61kg 22-30 kcals/kg [id number] total kcals 1.25-2 g protein/kg 76-122 g total protein Fluid per MD, now on HD NUTRITION DIAGNOSIS: * Swallowing difficulty R/T respiratory failure, dysphagia as evidenced by trach/vent dep, PEG dep * Increased kcal/prot needs R/T wound healing as evidenced by admitted w/ multiple pressure injuries including full thickness wounds at junction of Shaft of penis, dorsal scrotum, R elbow, and DTPI @ L buttocks. CURRENT TF:Vital AF 1.2 @ 50ml/hr x 24 hrs + Garo BID ENTERAL NUTRITION RECOMMENDATIONS: Vital AF 1.2 @ 60ml/hr x 20 hrs to provide 1200ml, 1440kcal, 90g prot, 973ml free water * Rec 20 hr run time for GI rest. Increase TF to goal of 60ml/hr for 20 hrs to meet est needs. -> monitor lytes and renal fxn closely, monitor need for renal TF -> TF @ goal will provide 1642mg K and 2025mg Phos * HOB over 30 degrees/ water flush per MD -------- Pt continues to have loose stool, rectal tube. Trial of Osmolite 1.2 w/ goal of 60ml/hr for 20 hrs (4 hrs bowel rest) to provide 1200ml, 1440 kcal, 67g pro, 984ml free H2O, -> Rec to add prosource 1 pack daily (11g pro) to better meet est pro needs. -> Monitor BG, K closely. Pt would require increased insulin coverage as TF at goal would provide 56g more carbs per day. ------- ADDITIONAL RECOMMENDATIONS: * Per SNF: HT=63" JT=312 lbs (vs EMR wt of 166lbs) -> obtain re-calibrated bedscale wt, rec daily wt monitoring * Wound healing: con't Nephrovite + Garo BID/ Vit C dosing per Nephro * Monitor renal fxn and lytes closely w/ non-renal TF -> K low, phos wnl; rec updated mag level. * Daily wts w/ drop to 118-20 lbs, rec to recalibrate for accurate CBW * Consider adding anti-diarrheal med +rectal tube-> now on imodium (11) Uremia (12) CKD (chronic kidney disease) stage 5, GFR less than 15 ml/min (13) Colon distention Assessment & Plan: discussed with GI likely functional as having lots of loose bm rectal tube kub f/u s/p colonoscopy - findings reviewed with GI Marked distention of the sigmoid colon. 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 No evidence of bowel wall thickening or pneumatosis 12 mm focus of contrast enhancement in the right pectineus muscle. While nonspecific in appearance, appearance raises concern for a possible pseudoaneurysm. Ill- defined thickening of the pectus medius muscle could indicate some intramuscular hemorrhage. The above findings were phoned to Dr. Urias at the time of interpretation Large bilateral pleural effusions Hazy pulmonary parenchymal opacities as well as dense consolidative opacities most likely represent pulmonary edema, but could represent pneumonia Evidence of anasarca elsewhere, with generalized edema of the subcutaneous fat Bladder wall thickening, raises concern for cystitis. Avalos catheter in place Colonic diverticulosis. No evidence of diverticulitis. Tracheostomy Pacemaker Gastrostomy Jonathan Urias Sep 30, 2019 09:39
[2019-09-30 12:00] VITALS: BP 112/48
--- NOTE | 2019-09-30 13:03 | NUR ---
CASE MANAGEMENT:REVIEW 09/30/19 SI: SEPSIS. PNA TRACH/VENT/GTUBE/DIALYSIS 98.1 66 19 112/48 99% ON VENT SUPPORT W/24% FIO2 WBC+17.2 H/H-9.7/31.8 NA-130 BUN+72 CR+3.8 IS: HEPARIN SQ X1 COLISTIN INH Q12 SS INSULIN SQ Q6HRS EPOETIN SQ MWF LACTOBACILLUS GT BID PEPCID GT QD LOPRESSOR GT Q12 MINOXIDIL GT QD : STEP DOWN UNIT PLAN: PATIENT HAS BEEN HERE FOR 53 DAYS 2 WEEKS AGO WHEN [facility]IED SNF AND DIALYSIS PLACEMENT FOR THIS PATIENT THE HEALTH PLAN GAVE THE BED AWAY TO ANOTHER ONE OF THEIR MEMBERS HEALTH PLAN HAS NOT BEEN INSTRUMENTAL IN HELPING US DISCHARGE THIS PATIENT FROM OUR HOSPITAL
--- NOTE | 2019-09-30 13:54 | Pulmonology Progress Note ---
Subjective ROS Limited/Unobtainable: No Constitutional: Denies: fever Gastrointestinal/Abdominal: Reports: other - had EGT & gastric biopsy yesterday Allergies: Coded Allergies: No Known Allergies (Unverified , 06/10/19) All Systems: reviewed and negative except above Objective Last 24 Hour Vital Signs Date Time Temp Pulse Resp B/P (MAP) Pulse Ox O2 Delivery O2 Flow Rate FiO2 09/30/19 13:28 73 12 24 09/30/19 12:00 Mechanical Ventilator 09/30/19 12:00 70 09/30/19 12:00 98.1 66 19 112/48 (69) 99 09/30/19 12:00 24 09/30/19 10:45 73 12 24 09/30/19 08:43 78 13 99 24 74 13 24 09/30/19 08:00 98.4 78 19 100/43 (62) 98 09/30/19 08:00 24 09/30/19 08:00 Mechanical Ventilator 09/30/19 08:00 76 09/30/19 07:30 78 12 24 09/30/19 05:52 98.4 09/30/19 04:00 Mechanical Ventilator 09/30/19 04:00 86 09/30/19 04:00 100.4 85 19 117/53 (74) 98 09/30/19 04:00 24 09/30/19 03:30 84 12 24 09/30/19 00:00 Mechanical Ventilator 09/30/19 00:00 91 09/30/19 00:00 24 09/29/19 23:13 87 12 100 24 73 12 24 09/29/19 23:02 99.5 89 19 128/61 (83) 96 09/29/19 20:00 Mechanical Ventilator 09/29/19 20:00 82 09/29/19 20:00 98.6 85 19 120/53 (75) 95 09/29/19 19:38 82 14 24 09/29/19 16:13 Mechanical Ventilator 09/29/19 16:01 98.6 77 19 99/47 (64) 97 09/29/19 16:00 77 09/29/19 16:00 24 09/29/19 15:20 77 14 24 Intake and Output 09/29/19 09/30/19 19:00 07:00 Intake Total 890 ml 540 ml Output Total 700 ml Balance 890 ml -160 ml Free Water 220 ml Tube Feeding 490 ml 540 ml Other 180 ml Stool Total 700 ml # Bowel Movements 100 Laboratory Tests 09/29/19 16:55: POC Whole Blood Glucose 213H 09/29/19 21:42: POC Whole Blood Glucose [Pending] 09/30/19 05:13: POC Whole Blood Glucose [Pending] 09/30/19 05:50: White Blood Count 17.2H, Red Blood Count 3.84L, Hemoglobin 9.7L, Hematocrit 31.8L, Mean Corpuscular Volume 83, Mean Corpuscular Hemoglobin 25.2L, Mean Corpuscular Hemoglobin Concent 30.4L, Red Cell Distribution Width 17.0H, Platelet Count 474H, Mean Platelet Volume 5.9L, Neutrophils (%) (Auto) 58.6, Lymphocytes (%) (Auto) 22.7, Monocytes (%) (Auto) 11.0H, Eosinophils (%) (Auto) 6.6H, Basophils (%) (Auto) 1.1, Sodium Level 130L, Potassium Level 3.8, Chloride Level 93L, Carbon Dioxide Level 26, Anion Gap 11, Blood Urea Nitrogen 72H, Creatinine 3.8H, Estimat Glomerular Filtration Rate 15.5, Glucose Level 184H, Calcium Level 8.9 09/30/19 12:01: POC Whole Blood Glucose 120H Current Medications Medications (Trade) Dose Ordered Sig/Leonel Route PRN Reason Start Time Stop Time Status Last Admin Dose Admin Acetaminophen (Tylenol) 650 mg Q4H PRN GT Mild Pain (Pain Scale 1-3) 09/21/19 12:45 10/21/19 12:44 09/30/19 05:22 Atorvastatin Calcium (Lipitor) 40 mg BEDTIME GT 08/09/19 21:00 11/07/19 20:59 09/29/19 21:00 Chlorhexidine Gluconate (Felipa-Hex 2%) 1 applic DAILY@1999 TOPIC 09/12/19 20:00 12/11/19 19:59 09/29/19 20:00 Clonidine HCl (Catapres Tab) 0.1 mg Q4H PRN GT For High Blood Pressure 09/09/19 12:30 12/08/19 05:29 09/15/19 04:10 Colistimethate Sodium (Colistin *inhalation use only*) 75 mg Q12HR@10,22 INH 09/27/19 22:00 10/04/19 21:59 09/30/19 08:52 Dextrose (Dextrose 50%) 25 ml Q30M PRN IV Hypoglycemia 08/09/19 07:30 11/07/19 07:29 Dextrose (Dextrose 50%) 50 ml Q30M PRN IV Hypoglycemia 08/09/19 07:30 11/07/19 07:29 Diphenoxylate HCl/ Atropine (Lomotil) 2.5 mg QID PRN ORAL Diarrhea 09/24/19 08:45 10/24/19 08:44 Epoetin Andreas (Epoetin Andreas(ESRD on dialysis)) 10,000 unit WED-WED-WED SUBQ 09/20/19 21:00 12/19/19 20:59 09/29/19 21:00 Famotidine (Pepcid) 20 mg DAILY GT 08/30/19 09:00 11/28/19 08:59 09/30/19 08:22 Heparin Sodium (Porcine) (Heparin Sod 1000 units/ml 10ml) 2,000 unit ONCE ONCE IV 09/30/19 14:15 09/30/19 14:16 Heparin Sodium (Porcine) (Heparin) 1,000 unit POSTHD INJ 09/30/19 14:15 11/14/19 14:14 Insulin Aspart (NovoLOG) Q6HR SUBQ 09/25/19 18:00 11/07/19 11:29 09/30/19 05:25 Lactobacillus Acidophilus (Culturelle) 1 tab TWICE A DAY GT 09/14/19 18:00 12/13/19 17:59 09/30/19 08:21 Metoprolol Tartrate (Lopressor) 200 mg Q12HR GT 08/09/19 09:00 11/07/19 08:59 09/29/19 08:59 Minoxidil (Loniten) 5 mg DAILY GT 08/09/19 09:00 11/07/19 08:59 09/29/19 08:58 Polyethylene Glycol (Miralax) 17 gm DAILY GT 09/28/19 11:00 10/28/19 10:59 09/30/19 08:20 Sodium Chloride 1,000 ml @ 500 mls/hr Q2H PRN IVLG sbp<90 during hd 09/30/19 14:03 10/30/19 14:02 Zinc Oxide (Zinc Oxide) 1 applic BID TOPIC 08/10/19 18:00 11/08/19 17:59 09/30/19 08:22 Assessment/Plan Assessment/Plan Pulmonary Progress Note Assessment/Plan IMPRESSION: 1. anemia. 2. fevers improved 3. Leukocytosis. 4. hypotension 5. Acute on chronic renal failure. 6. Hyponatremia. 7. Severe protein-calorie malnutrition. 8. Significantly elevated C-reactive protein concerning for infectious etiology. 9. Tracheostomy, G-tube. 10. Ventilator dependence. 11. anasarca 12. Hematuria 13. V pacing PLAN rectal tube lomotil care noted on vent/ no wean monitor labs - still with elevated wbc ID follow up monitor renal function: HD prognosis poor impression, plan, and exam edited and reviewed in detail care discussed with RN Subjective ROS Limited/Unobtainable: Yes Allergies: Coded Allergies: No Known Allergies (Unverified , 06/10/19) Subjective on vent Objective Vital Signs Noted Height (Feet): 5 Height (Inches): 10.00 Weight (Pounds): 155 Objective GENERAL: Ill-appearing male, chronically debilitated. HEENT: Tracheostomy in midline. Questionable fullness in the submandibular region. LUNGS: Coarse breath sounds. reduced breath sounds CARDIAC: S1, S2. Regular rate and rhythm. ABDOMEN: Soft. G-tube. EXTREMITIES: With noted edema. NEUROLOGICAL: Poorly responsive, weak diffusely. Laboratory Tests noted CXR: Stable Kenny Mccurdy MD Sep 30, 2019 13:54
[2019-09-30] MEDS ORDERED: Heparin Sod 1000 units/ml 10ml IV ONE (14:15)
[2019-09-30] MEDS ORDERED: Heparin 1000 units/ml 1ml Vial INJ SCH (14:15)
--- NOTE | 2019-09-30 14:52 | NUR ---
NURSE NOTES: Patient noted with elevated WBC 17.2 today. Patient is on colistin, no IV antibiotics noted, afebrile. Called and spoke with Dr. Lyle regarding assessments. Dr. Lyle acknowledged and gave no new orders at this time. Will continue to monitor patient.
[2019-09-30 16:00] VITALS: BP 98/52
--- NOTE | 2019-09-30 16:00 | NUR ---
NURSE NOTES: [facility] hemodialysis nurse at bedside. Assessed blood pressure and noted at 85/43. Reassessed blood pressure and was noted at 95/54. [facility] nurse contacted Dr. Pichardo and informed of low blood pressure. Dr. Pichardo acknowledged and rescheduled hemodialysis for tomorrow, 10/01/2019. [facility] nephrology and [facility] nurse made aware of rescheduling of hemodialysis. Will continue to monitor patient.
--- NOTE | 2019-09-30 16:06 | NUR ---
cancel hd because bp 73/22 today hd then do tmw by dr roman,inform to james
--- NOTE | 2019-09-30 16:07 | Nephrology Progress Note ---
Assessment/Plan Plan MOF Established ESRD - HD now TTS. Anemia of CKD -TUYET. Unable to dialyze today due to SBP 70's. We'll try tomorrow Subjective Subjective Obtunded. Objective Objective Last 24 Hour Vital Signs Date Time Temp Pulse Resp B/P (MAP) Pulse Ox O2 Delivery O2 Flow Rate FiO2 09/30/19 14:59 75 12 24 09/30/19 13:28 73 12 24 09/30/19 12:00 Mechanical Ventilator 09/30/19 12:00 70 09/30/19 12:00 98.1 66 19 112/48 (69) 99 09/30/19 12:00 24 09/30/19 10:45 73 12 24 09/30/19 08:43 78 13 99 24 74 13 24 09/30/19 08:00 98.4 78 19 100/43 (62) 98 09/30/19 08:00 24 09/30/19 08:00 Mechanical Ventilator 09/30/19 08:00 76 09/30/19 07:30 78 12 24 09/30/19 05:52 98.4 09/30/19 04:00 Mechanical Ventilator 09/30/19 04:00 86 09/30/19 04:00 100.4 85 19 117/53 (74) 98 09/30/19 04:00 24 09/30/19 03:30 84 12 24 09/30/19 00:00 Mechanical Ventilator 09/30/19 00:00 91 09/30/19 00:00 24 09/29/19 23:13 87 12 100 24 73 12 24 09/29/19 23:02 99.5 89 19 128/61 (83) 96 09/29/19 20:00 Mechanical Ventilator 09/29/19 20:00 82 09/29/19 20:00 98.6 85 19 120/53 (75) 95 09/29/19 19:38 82 14 24 09/29/19 16:13 Mechanical Ventilator Intake and Output 09/29/19 09/30/19 19:00 07:00 Intake Total 890 ml 540 ml Output Total 700 ml Balance 890 ml -160 ml Free Water 220 ml Tube Feeding 490 ml 540 ml Other 180 ml Stool Total 700 ml # Bowel Movements 100 Laboratory Tests 09/29/19 16:55: POC Whole Blood Glucose 213H 09/29/19 21:42: POC Whole Blood Glucose [Pending] 09/30/19 05:13: POC Whole Blood Glucose [Pending] 09/30/19 05:50: White Blood Count 17.2H, Red Blood Count 3.84L, Hemoglobin 9.7L, Hematocrit 31.8L, Mean Corpuscular Volume 83, Mean Corpuscular Hemoglobin 25.2L, Mean Corpuscular Hemoglobin Concent 30.4L, Red Cell Distribution Width 17.0H, Platelet Count 474H, Mean Platelet Volume 5.9L, Neutrophils (%) (Auto) 58.6, Lymphocytes (%) (Auto) 22.7, Monocytes (%) (Auto) 11.0H, Eosinophils (%) (Auto) 6.6H, Basophils (%) (Auto) 1.1, Sodium Level 130L, Potassium Level 3.8, Chloride Level 93L, Carbon Dioxide Level 26, Anion Gap 11, Blood Urea Nitrogen 72H, Creatinine 3.8H, Estimat Glomerular Filtration Rate 15.5, Glucose Level 184H, Calcium Level 8.9 09/30/19 12:01: POC Whole Blood Glucose 120H Height (Feet): 5 Height (Inches): 10.00 Weight (Pounds): 134 Objective CV RR Trach clean Lungs CTA New Perma Cath RIJ. Abd SNT. BS + E No CCE Erica Pichardo MD Sep 30, 2019 16:07
--- NOTE | 2019-09-30 19:04 | NUR ---
RESPIRATORY NOTE: Received pt on AC 12, 550VT, 24%, PEEP +5. Pt is trach-dependent w/ a cuffed, Portex 8 tube. Pt obtunded. B/S ovi. rhonchi, sxn small amounts of thick/thin, pale-yellow secretions. Vent plugged into red outlet, ambubag at bedside. Pt in no apparent distress at this time. Will continue plan of care.
--- NOTE | 2019-09-30 19:29 | NUR ---
NURSE HAND-OFF REPORT: Important Events on Shift: Patient Status: Stable Diet: Osmolite 1.2 60 ml/hr Pending Orders: None Pending Results/Labs:None Pending MD notification:None Latest Vital Signs: Temperature 97.3 , Pulse 74 , B/P 98 /52 , Respiratory Rate 12 , O2 SAT 100 , Mechanical Ventilator, O2 Flow Rate 15.0 . Vital Sign Comment: None EKG Rhythm: V-Paced Rhythm change?: N MD Notified?: N - MD Response: Latest Delacruz Fall Score: 70 Fall Risk: High Risk Safety Measures: Call light Within Reach, Bed Alarm Zone 1, Side Rails Side Rails x3, Bed position Low and Locked. Fall Precautions: Yellow Socks Yellow Gown Door Sign Patient Fall Education Report given to TAMICA Hubbard.
--- NOTE | 2019-09-30 19:30 | NUR ---
NURSE NOTES: Pt report received from Srinivas Cortez day shift RN. pt is obtunded neuro jimenez, however, no acute change to pts neuro mentation. pt is trach vented, sating 99% O2, no acute resp distress noted. pt is on hall monitor showing SR, no other cardiac abnormalities noted. pts bed is low, locked, armed, call light within reach, bed rails up times 3. will follow plan of care.
[2019-09-30 20:00] VITALS: BP_SYST 101; BP_SYST 120; BP_DIAS 50; BP_DIAS 60
[2019-09-30] MEDS: Atorvastatin 20mg tab GT SCH (20:09)
[2019-09-30] MEDS: Dyna-Hex 2% Top Sol 2oz TOPIC SCH (20:10)
--- NOTE | 2019-09-30 22:00 | NUR ---
NURSE NOTES: Pt repositioned and cleaned. IV lines assessed.
[2019-10-01] VITALS: BP 127/54
[2019-10-01 04:00] VITALS: BP 121/54
--- NOTE | 2019-10-01 04:00 | NUR ---
NURSE NOTES: Pt has been cleaned and repositioned. opti foams in place on pts pressure points to prevent skin break down.
[2019-10-01] MEDS: NovoLOG Insulin Flexpen SUBQ SCH ×3 (05:28→18:17)
--- NOTE | 2019-10-01 07:10 | NUR ---
NURSE NOTES: Received report from Srinivas Cortez RN. Pt is seen lying in bed in semi- rivera's position. Connected to vent. No signs of respiratory distress. O2 sat 100%. Pt with Gtube running and intact and patent. No leaking noted. Pt has IV running on Left hand g 22. Still patent intact no infiltration noted. NO signs of pain noted. Pt on rectal tube still patent and noted with brown loose stool . Pt is in comfortable position. Call light within reach. Continue to plan of care.
--- NOTE | 2019-10-01 07:15 | NUR ---
NURSE HAND-OFF REPORT: Important Events on Shift:[NA] Patient Status: [STABLE] Diet: [ DOCTOR ORDER] Pending Orders: [NA] Pending Results/Labs:[YES] Pending MD notification:[Awaiting labs to contact doctor.] Latest Vital Signs: Temperature 98.6 , Pulse 76 , B/P 121 /54 , Respiratory Rate 15 , O2 SAT 99 , Mechanical Ventilator, O2 Flow Rate 15.0 . Vital Sign Comment: [STABLE] EKG Rhythm: V-Paced Rhythm change?: N MD Notified?: N - MD Response: Latest Delacruz Fall Score: 70 Fall Risk: High Risk Safety Measures: Call light Within Reach, Bed Alarm Zone 1, Side Rails Side Rails x3, Bed position Low and Locked. Fall Precautions: Yellow Socks Yellow Gown Door Sign Patient Fall Education Report given to [Negar DAVEY].
[2019-10-01 07:42] LABS: EOSINOPHILS % (AUTO) 10.5 % (0.0-3.0); HEMATOCRIT 31.2 % (42.0-52.0); HEMOGLOBIN 9.5 G/DL (14.2-18.0); LYMPHOCYTES % (AUTO) 18.6 % (20.0-45.0); MEAN CORPUSCULAR VOLUME 82 FL (80-99); MONOCYTES % (AUTO) 6.8 % (1.0-10.0); NEUTROPHILS % (AUTO) 63.1 % (45.0-75.0); PLATELET COUNT 494 K/UL (150-450); RED BLOOD COUNT 3.78 M/UL (4.70-6.10); RED CELL DISTRIBUTION WIDTH 16.7 % (11.6-14.8); WHITE BLOOD COUNT 15.3 K/UL (4.8-10.8)
[2019-10-01 08:00] VITALS: BP 109/48
[2019-10-01 08:01] LABS: ANION GAP 12 mmol/L (5-15); BLOOD UREA NITROGEN 87 mg/dL (7-18); CALCIUM 8.9 MG/DL (8.5-10.1); CARBON DIOXIDE 25 MMOL/L (21-32); CHLORIDE 91 MMOL/L (98-107); CREATININE 4.5 MG/DL (0.55-1.30); POTASSIUM 4.1 MMOL/L (3.5-5.1); SODIUM 128 MMOL/L (136-145)
--- NOTE | 2019-10-01 08:30 | NUR ---
NURSE NOTES: Spoke to KOBE, RN. She called and said will gonna be here for HD.
[2019-10-01] MEDS: Colistin for inhalation INH SCH ×2 (08:51→23:12)
[2019-10-01] MEDS: Lactobacillus-GG tablet GT SCH ×2 (09:00→18:17)
[2019-10-01] MEDS: Minoxidil 2.5mg tab GT SCH (09:00)
[2019-10-01] MEDS: Miralax 17gm pkt GT SCH (09:00)
[2019-10-01] MEDS: Metoprolol Tartrate 100mg tab GT SCH ×2 (09:00→20:34)
--- NOTE | 2019-10-01 09:40 | Surgery Progress Note ---
Surgery Progress Note Subjective Procedure Performed Right femoral temporary hemodialysis catheter removal Additional Comments no acute events exam stable on trach vent tf peg wbc trending down Objective Last 24 Hour Vital Signs Date Time Temp Pulse Resp B/P (MAP) Pulse Ox O2 Delivery O2 Flow Rate FiO2 10/01/19 08:52 82 12 100 Mechanical Ventilator 24 81 19 24 10/01/19 07:05 78 17 24 10/01/19 05:08 76 15 24 10/01/19 04:00 77 10/01/19 04:00 98.6 77 15 121/54 (76) 99 10/01/19 04:00 Mechanical Ventilator 10/01/19 04:00 24 10/01/19 03:02 77 18 24 10/01/19 01:23 74 13 24 10/01/19 00:02 75 15 24 10/01/19 00:00 24 10/01/19 00:00 Mechanical Ventilator 10/01/19 00:00 98.1 75 15 127/54 (78) 99 10/01/19 00:00 72 09/30/19 21:36 73 12 99 Mechanical Ventilator 24 75 12 24 09/30/19 20:05 73 102/41 09/30/19 20:00 24 09/30/19 20:00 Mechanical Ventilator 09/30/19 20:00 75 09/30/19 20:00 98.4 75 14 101/50 (67) 95 09/30/19 19:01 74 12 24 09/30/19 16:41 75 13 24 09/30/19 16:00 97.3 81 19 98/52 (67) 100 09/30/19 16:00 24 09/30/19 16:00 73 09/30/19 16:00 Mechanical Ventilator 09/30/19 14:59 75 12 24 09/30/19 13:28 73 12 24 09/30/19 12:00 Mechanical Ventilator 09/30/19 12:00 70 09/30/19 12:00 98.1 66 19 112/48 (69) 99 09/30/19 12:00 24 09/30/19 10:45 73 12 24 I&O Intake and Output 09/30/19 10/01/19 19:00 07:00 Intake Total 920 ml 660 ml Output Total 200 ml 100 ml Balance 720 ml 560 ml Free Water 200 ml Tube Feeding 720 ml 660 ml Stool Total 200 ml 100 ml Dressing: dry Cardiovascular: RSR Respiratory: decreased breath sounds Abdomen: soft, non-tender, present bowel sounds Extremities: no tenderness, no cyanosis, other Laboratory Tests Test 09/30/19 12:01 09/30/19 17:05 09/30/19 23:27 10/01/19 05:25 POC Whole Blood Glucose 120 MG/DL (74-106) H Pending Pending Pending Test 10/01/19 06:10 White Blood Count 15.3 K/UL (4.8-10.8) H Red Blood Count 3.78 M/UL (4.70-6.10) L Hemoglobin 9.5 G/DL (14.2-18.0) L Hematocrit 31.2 % (42.0-52.0) L Mean Corpuscular Volume 82 FL (80-99) Mean Corpuscular Hemoglobin 25.3 PG (27.0-31.0) L Mean Corpuscular Hemoglobin Concent 30.6 G/DL (32.0-36.0) L Red Cell Distribution Width 16.7 % (11.6-14.8) H Platelet Count 494 K/UL (150-450) H Mean Platelet Volume 5.6 FL (6.5-10.1) L Neutrophils (%) (Auto) 63.1 % (45.0-75.0) Lymphocytes (%) (Auto) 18.6 % (20.0-45.0) L Monocytes (%) (Auto) 6.8 % (1.0-10.0) Eosinophils (%) (Auto) 10.5 % (0.0-3.0) H Basophils (%) (Auto) 1.0 % (0.0-2.0) Sodium Level 128 MMOL/L (136-145) L Potassium Level 4.1 MMOL/L (3.5-5.1) Chloride Level 91 MMOL/L (98-107) L Carbon Dioxide Level 25 MMOL/L (21-32) Anion Gap 12 mmol/L (5-15) Blood Urea Nitrogen 87 mg/dL (7-18) H Creatinine 4.5 MG/DL (0.55-1.30) H Estimat Glomerular Filtration Rate 12.7 mL/min (>60) Glucose Level 172 MG/DL (74-106) H Calcium Level 8.9 MG/DL (8.5-10.1) Phosphorus Level 5.0 MG/DL (2.5-4.9) H Magnesium Level 2.4 MG/DL (1.8-2.4) Plan Problems: (1) Anemia (2) Hyponatremia (3) Leukocytosis Assessment & Plan: Tracheostomy, left chest pacemaker are again demonstrated. There is bilateral interstitial and airspace disease and bilateral pleural fluid again demonstrated. This appears more severe than on the prior study. Bilateral interstitial and airspace infiltrates versus edema. Bilateral pleural effusions Leukocytosis, anemia, tachycardia, abnormal labs. Wound evaluated and likely etiology of patient's sepsis. Leukocytosis etiology work-up antibiotics per infectious disease Appreciate nephrology input transfuse with dialysis We will follow with recommendations thank you allowing participation's care plan HD access temp HD discussed with medical teams line okay HD as per renal persistent leukocytosis flow cyto noted improving trending down right fem line removed wbc trending down (4) Ventilator dependent (5) Right lower lobe pneumonia (6) Hypokalemia (7) Hyperkalemia (8) Anasarca (9) Decubitus skin ulcer Assessment & Plan: pt presented on admission with generalized edemae.Skin assessed under tracheostomy and no areas of concerns noted. GT Insertion is marginally erythematous with small amt slough at stoma. Unstageable Pressure Injury R elbow. Base of wound is 100% yellow slough, Borders are erythematous. Wound oozing small amt haemopurulent exudate.Darker skin tone without elevation in skin temp or erythema periwound. Pt's penis and scrotum are grossly edematous and enlarged and weeping serous exudate from numerous sites both from penis and scrotum. Two small open wounds noted at base of at base of shaft of penis ,and contreras aspect of scrotum. Both wounds oozing large amt sanguineous and serosanguineous exudate. Multiple open wounds with Biofilm at base of each wounds noted to contreras/lateral,inferior and posterior aspects of scrotum. These wounds noted to be oozing moderate amts of serosanguineous exudate. Hypertrophic scar with scattered areas of hyperpigmentation noted to Sacrum. DTPI noted to L Buttocks (L)7cm x (W)9cm. Base of wound is purple and indurated.Darker skin tone without erythema, induration or fluctuance R and L ischial tuberosities. Both heels are boggy with non-blanchable erythema. Tx.Plan: Cleanse wound R elbow with Saline. Apply TheraHoney, Apply Moisture Barrier Paste periwound. Cover with Optifoam drsg.Change Daily and prn. Wash GT site with soap and water.Pat dry. Apply Zinc Oxide Paste to GT site Daily. Leave Open to Air. Apply Zinc Oxide Paste to entire Scrotum, Place ABD pads to R and L lateral, and posterior aspects of scrotum TWICE daily. Apply Cavilon Skin Barrier to malleoli and both Heels. Cover each site with Optifoam drsgs. Change every 7 days and prn. Reposition at least every 2hours or as tolerated. Off-load heels with Pillows. APM/BECCA Mattress overlay. (10) Malnutrition Assessment & Plan: DAILY ESTIMATED NEEDS: Needs based on Renal, critical care, wound/ 61kg 22-30 kcals/kg 2798-8152 total kcals 1.25-2 g protein/kg 76-122 g total protein Fluid per MD, now on HD NUTRITION DIAGNOSIS: * Swallowing difficulty R/T respiratory failure, dysphagia as evidenced by trach/vent dep, PEG dep * Increased kcal/prot needs R/T wound healing as evidenced by admitted w/ multiple pressure injuries including full thickness wounds at junction of Shaft of penis, dorsal scrotum, R elbow, and DTPI @ L buttocks. CURRENT TF:Vital AF 1.2 @ 50ml/hr x 24 hrs + Garo BID ENTERAL NUTRITION RECOMMENDATIONS: Vital AF 1.2 @ 60ml/hr x 20 hrs to provide 1200ml, 1440kcal, 90g prot, 973ml free water * Rec 20 hr run time for GI rest. Increase TF to goal of 60ml/hr for 20 hrs to meet est needs. -> monitor lytes and renal fxn closely, monitor need for renal TF -> TF @ goal will provide 1642mg K and 2025mg Phos * HOB over 30 degrees/ water flush per MD -------- Pt continues to have loose stool, rectal tube. Trial of Osmolite 1.2 w/ goal of 60ml/hr for 20 hrs (4 hrs bowel rest) to provide 1200ml, 1440 kcal, 67g pro, 984ml free H2O, -> Rec to add prosource 1 pack daily (11g pro) to better meet est pro needs. -> Monitor BG, K closely. Pt would require increased insulin coverage as TF at goal would provide 56g more carbs per day. ------- ADDITIONAL RECOMMENDATIONS: * Per SNF: HT=63" IF=964 lbs (vs EMR wt of 166lbs) -> obtain re-calibrated bedscale wt, rec daily wt monitoring * Wound healing: con't Nephrovite + Garo BID/ Vit C dosing per Nephro * Monitor renal fxn and lytes closely w/ non-renal TF -> K low, phos wnl; rec updated mag level. * Daily wts w/ drop to 118-20 lbs, rec to recalibrate for accurate CBW * Consider adding anti-diarrheal med +rectal tube-> now on imodium (11) Uremia (12) CKD (chronic kidney disease) stage 5, GFR less than 15 ml/min (13) Colon distention Assessment & Plan: discussed with GI likely functional as having lots of loose bm rectal tube kub f/u s/p colonoscopy - findings reviewed with GI Marked distention of the sigmoid colon. 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 No evidence of bowel wall thickening or pneumatosis 12 mm focus of contrast enhancement in the right pectineus muscle. While nonspecific in appearance, appearance raises concern for a possible pseudoaneurysm. Ill- defined thickening of the pectus medius muscle could indicate some intramuscular hemorrhage. The above findings were phoned to Dr. Urias at the time of interpretation Large bilateral pleural effusions Hazy pulmonary parenchymal opacities as well as dense consolidative opacities most likely represent pulmonary edema, but could represent pneumonia Evidence of anasarca elsewhere, with generalized edema of the subcutaneous fat Bladder wall thickening, raises concern for cystitis. Avalos catheter in place Colonic diverticulosis. No evidence of diverticulitis. Tracheostomy Pacemaker Gastrostomy Jonathan Urias Oct 01, 2019 09:40
--- NOTE | 2019-10-01 09:40 | General Progress Note ---
Assessment/Plan Assessment/Plan: Assessment - abdominal distention, due to colonic dysmotility, - colonoscopy negative to hepatic flexure - diarrhea - presumed TF related - abnormal LFT - Anemia - leukocytosis - stool OB (+) - EGD --> gastritis - Renal failure - Anasarca - resp failure, trach - dysphagia, GT - encephalopathy, contracted - poor px Recommendations - continue TF - rectal tube - roll side to side as feasible (hard due to severe contractions) - Elevate HOB - f/u labs - PPI - abx - supportive care Subjective ROS Limited/Unobtainable: No Allergies: Coded Allergies: No Known Allergies (Unverified , 06/10/19) Objective Last 24 Hour Vital Signs Date Time Temp Pulse Resp B/P (MAP) Pulse Ox O2 Delivery O2 Flow Rate FiO2 10/01/19 08:52 82 12 100 Mechanical Ventilator 24 81 19 24 10/01/19 07:05 78 17 24 10/01/19 05:08 76 15 24 10/01/19 04:00 77 10/01/19 04:00 98.6 77 15 121/54 (76) 99 10/01/19 04:00 Mechanical Ventilator 10/01/19 04:00 24 10/01/19 03:02 77 18 24 10/01/19 01:23 74 13 24 10/01/19 00:02 75 15 24 10/01/19 00:00 24 10/01/19 00:00 Mechanical Ventilator 10/01/19 00:00 98.1 75 15 127/54 (78) 99 10/01/19 00:00 72 09/30/19 21:36 73 12 99 Mechanical Ventilator 24 75 12 24 09/30/19 20:05 73 102/41 09/30/19 20:00 24 09/30/19 20:00 Mechanical Ventilator 09/30/19 20:00 75 09/30/19 20:00 98.4 75 14 101/50 (67) 95 09/30/19 19:01 74 12 24 09/30/19 16:41 75 13 24 09/30/19 16:00 97.3 81 19 98/52 (67) 100 09/30/19 16:00 24 09/30/19 16:00 73 09/30/19 16:00 Mechanical Ventilator 09/30/19 14:59 75 12 24 09/30/19 13:28 73 12 24 8/22/20 12:00 Mechanical Ventilator 09/30/19 12:00 70 09/30/19 12:00 98.1 66 19 112/48 (69) 99 09/30/19 12:00 24 09/30/19 10:45 73 12 24 Intake and Output 09/30/19 10/01/19 19:00 07:00 Intake Total 920 ml 660 ml Output Total 200 ml 100 ml Balance 720 ml 560 ml Free Water 200 ml Tube Feeding 720 ml 660 ml Stool Total 200 ml 100 ml Laboratory Tests 09/30/19 12:01: POC Whole Blood Glucose 120H 09/30/19 17:05: POC Whole Blood Glucose [Pending] 09/30/19 23:27: POC Whole Blood Glucose [Pending] 10/01/19 05:25: POC Whole Blood Glucose [Pending] 10/01/19 06:10: White Blood Count 15.3H, Red Blood Count 3.78L, Hemoglobin 9.5L, Hematocrit 31.2L, Mean Corpuscular Volume 82, Mean Corpuscular Hemoglobin 25.3L, Mean Corpuscular Hemoglobin Concent 30.6L, Red Cell Distribution Width 16.7H, Platelet Count 494H, Mean Platelet Volume 5.6L, Neutrophils (%) (Auto) 63.1, Lymphocytes (%) (Auto) 18.6L, Monocytes (%) (Auto) 6.8, Eosinophils (%) (Auto) 10.5H, Basophils (%) (Auto) 1.0, Sodium Level 128L, Potassium Level 4.1, Chloride Level 91L, Carbon Dioxide Level 25, Anion Gap 12, Blood Urea Nitrogen 87H, Creatinine 4.5H, Estimat Glomerular Filtration Rate 12.7, Glucose Level 172H, Calcium Level 8.9, Phosphorus Level 5.0H, Magnesium Level 2.4 Height (Feet): 5 Height (Inches): 10.00 Weight (Pounds): 130 General Appearance: no apparent distress EENT: normal ENT inspection Neck: supple Cardiovascular: normal rate Respiratory/Chest: decreased breath sounds Abdomen: normal bowel sounds, non tender, soft Extremities: non-tender Deno Landry MD Oct 01, 2019 09:40
[2019-10-01] MEDS: Zinc Oxide Oint 2oz TOPIC SCH ×2 (10:28→18:17)
--- NOTE | 2019-10-01 10:38 | NUR ---
NURSE NOTES: Started Dialysis by HD Nurse.
--- NOTE | 2019-10-01 11:12 | Pulmonology Progress Note ---
Subjective ROS Limited/Unobtainable: No Constitutional: Denies: fever Gastrointestinal/Abdominal: Reports: other - had EGT & gastric biopsy yesterday Allergies: Coded Allergies: No Known Allergies (Unverified , 06/10/19) All Systems: reviewed and negative except above Objective Last 24 Hour Vital Signs Date Time Temp Pulse Resp B/P (MAP) Pulse Ox O2 Delivery O2 Flow Rate FiO2 10/01/19 10:45 84 17 24 10/01/19 08:52 82 12 100 Mechanical Ventilator 24 81 19 24 10/01/19 08:00 97.3 79 18 109/48 (68) 97 10/01/19 08:00 Mechanical Ventilator 10/01/19 08:00 24 10/01/19 07:05 78 17 24 10/01/19 05:08 76 15 24 10/01/19 04:00 77 10/01/19 04:00 98.6 77 15 121/54 (76) 99 10/01/19 04:00 Mechanical Ventilator 10/01/19 04:00 24 10/01/19 03:02 77 18 24 10/01/19 01:23 74 13 24 10/01/19 00:02 75 15 24 10/01/19 00:00 24 10/01/19 00:00 Mechanical Ventilator 10/01/19 00:00 98.1 75 15 127/54 (78) 99 10/01/19 00:00 72 09/30/19 21:36 73 12 99 Mechanical Ventilator 24 75 12 24 09/30/19 20:05 73 102/41 09/30/19 20:00 24 09/30/19 20:00 Mechanical Ventilator 09/30/19 20:00 75 09/30/19 20:00 98.4 75 14 101/50 (67) 95 09/30/19 19:01 74 12 24 09/30/19 16:41 75 13 24 09/30/19 16:00 97.3 81 19 98/52 (67) 100 09/30/19 16:00 24 09/30/19 16:00 73 09/30/19 16:00 Mechanical Ventilator 09/30/19 14:59 75 12 24 09/30/19 13:28 73 12 24 09/30/19 12:00 Mechanical Ventilator 09/30/19 12:00 70 09/30/19 12:00 98.1 66 19 112/48 (69) 99 09/30/19 12:00 24 Intake and Output 09/30/19 10/01/19 19:00 07:00 Intake Total 920 ml 660 ml Output Total 200 ml 100 ml Balance 720 ml 560 ml Free Water 200 ml Tube Feeding 720 ml 660 ml Stool Total 200 ml 100 ml Laboratory Tests 09/30/19 12:01: POC Whole Blood Glucose 120H 09/30/19 17:05: POC Whole Blood Glucose [Pending] 09/30/19 23:27: POC Whole Blood Glucose [Pending] 10/01/19 05:25: POC Whole Blood Glucose [Pending] 10/01/19 06:10: White Blood Count 15.3H, Red Blood Count 3.78L, Hemoglobin 9.5L, Hematocrit 31.2L, Mean Corpuscular Volume 82, Mean Corpuscular Hemoglobin 25.3L, Mean Corpuscular Hemoglobin Concent 30.6L, Red Cell Distribution Width 16.7H, Platelet Count 494H, Mean Platelet Volume 5.6L, Neutrophils (%) (Auto) 63.1, Lymphocytes (%) (Auto) 18.6L, Monocytes (%) (Auto) 6.8, Eosinophils (%) (Auto) 10.5H, Basophils (%) (Auto) 1.0, Sodium Level 128L, Potassium Level 4.1, Chloride Level 91L, Carbon Dioxide Level 25, Anion Gap 12, Blood Urea Nitrogen 87H, Creatinine 4.5H, Estimat Glomerular Filtration Rate 12.7, Glucose Level 172H, Calcium Level 8.9, Phosphorus Level 5.0H, Magnesium Level 2.4 Current Medications Medications (Trade) Dose Ordered Sig/Leonel Route PRN Reason Start Time Stop Time Status Last Admin Dose Admin Acetaminophen (Tylenol) 650 mg Q4H PRN GT Mild Pain (Pain Scale 1-3) 09/21/19 12:45 10/21/19 12:44 09/30/19 05:22 Atorvastatin Calcium (Lipitor) 40 mg BEDTIME GT 08/09/19 21:00 11/07/19 20:59 09/30/19 20:09 Chlorhexidine Gluconate (Felipa-Hex 2%) 1 applic DAILY@1999 TOPIC 09/12/19 20:00 12/11/19 19:59 09/30/19 20:10 Clonidine HCl (Catapres Tab) 0.1 mg Q4H PRN GT For High Blood Pressure 09/09/19 12:30 12/08/19 05:29 09/15/19 04:10 Colistimethate Sodium (Colistin *inhalation use only*) 75 mg Q12HR@10,22 INH 09/27/19 22:00 10/04/19 21:59 10/01/19 08:51 Dextrose (Dextrose 50%) 25 ml Q30M PRN IV Hypoglycemia 08/09/19 07:30 11/07/19 07:29 Dextrose (Dextrose 50%) 50 ml Q30M PRN IV Hypoglycemia 08/09/19 07:30 11/07/19 07:29 Diphenoxylate HCl/ Atropine (Lomotil) 2.5 mg QID PRN ORAL Diarrhea 09/24/19 08:45 10/24/19 08:44 Epoetin Andreas (Epoetin Andreas(ESRD on dialysis)) 10,000 unit WED-WED-WED SUBQ 09/20/19 21:00 12/19/19 20:59 09/29/19 21:00 Famotidine (Pepcid) 20 mg DAILY GT 08/30/19 09:00 11/28/19 08:59 09/30/19 08:22 Heparin Sodium (Porcine) (Heparin Sod 1000 units/ml 10ml) 2,000 unit ONCE ONCE IV 10/01/19 16:15 10/01/19 16:16 Heparin Sodium (Porcine) (Heparin) 1,000 unit POSTHD INJ 09/30/19 14:15 11/14/19 14:14 Heparin Sodium (Porcine) (Heparin) 1,000 unit POSTHD INJ 10/01/19 16:15 11/15/19 16:14 Insulin Aspart (NovoLOG) Q6HR SUBQ 09/25/19 18:00 11/07/19 11:29 10/01/19 05:28 Lactobacillus Acidophilus (Culturelle) 1 tab TWICE A DAY GT 09/14/19 18:00 12/13/19 17:59 09/30/19 17:42 Metoprolol Tartrate (Lopressor) 200 mg Q12HR GT 08/09/19 09:00 11/07/19 08:59 09/29/19 08:59 Minoxidil (Loniten) 5 mg DAILY GT 08/09/19 09:00 11/07/19 08:59 09/29/19 08:58 Polyethylene Glycol (Miralax) 17 gm DAILY GT 09/28/19 11:00 10/28/19 10:59 09/30/19 08:20 Sodium Chloride 1,000 ml @ 500 mls/hr Q2H PRN IVLG sbp<90 during hd 09/30/19 14:03 10/30/19 14:02 Sodium Chloride 1,000 ml @ 500 mls/hr Q2H PRN IVLG sbp<90 during hd 10/01/19 16:08 10/31/19 16:07 Zinc Oxide (Zinc Oxide) 1 applic BID TOPIC 08/10/19 18:00 11/08/19 17:59 10/01/19 10:28 Assessment/Plan Assessment/Plan Pulmonary Progress Note Assessment/Plan IMPRESSION: 1. anemia. 2. fevers improved 3. Leukocytosis. 4. hypotension 5. Acute on chronic renal failure. 6. Hyponatremia. 7. Severe protein-calorie malnutrition. 8. Significantly elevated C-reactive protein concerning for infectious etiology. 9. Tracheostomy, G-tube. 10. Ventilator dependence. 11. anasarca 12. Hematuria 13. V pacing PLAN rectal tube lomotil care noted on vent/ no wean monitor labs - still with elevated wbc ID follow up monitor renal function: HD prognosis poor impression, plan, and exam edited and reviewed in detail care discussed with RN Subjective ROS Limited/Unobtainable: Yes Allergies: Coded Allergies: No Known Allergies (Unverified , 06/10/19) Subjective on vent Objective Vital Signs Noted Height (Feet): 5 Height (Inches): 10.00 Weight (Pounds): 155 Objective GENERAL: Ill-appearing male, chronically debilitated. HEENT: Tracheostomy in midline. Questionable fullness in the submandibular region. LUNGS: Coarse breath sounds. reduced breath sounds CARDIAC: S1, S2. Regular rate and rhythm. ABDOMEN: Soft. G-tube. EXTREMITIES: With noted edema. NEUROLOGICAL: Poorly responsive, weak diffusely. Laboratory Tests noted CXR: Stable Kenny Mccurdy MD Oct 01, 2019 11:12
--- NOTE | 2019-10-01 11:25 | Infectious Diseases Prog Note ---
Assessment/Plan Assessment/Plan A: 1. Pneumonia with Acinetobacter & Proteus COVID19 X2 : negative 2. ESRD on HD 3. Leukocytosis 4. Respiratory failure, Ventilator dependent 5. Anemia 6. Anasarca 7. 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 Klebsiella catheter infection s/p removal 10. Diarrhea, C. difficile negative PLAN: 1. Continue Colistin inhaler 2. Add Cefepime Subjective ROS Limited/Unobtainable: Yes Cardiovascular: Reports: other - on bedside HD Allergies: Coded Allergies: No Known Allergies (Unverified , 06/10/19) Objective Last 24 Hour Vital Signs Date Time Temp Pulse Resp B/P (MAP) Pulse Ox O2 Delivery O2 Flow Rate FiO2 10/01/19 10:45 84 17 24 10/01/19 08:52 82 12 100 Mechanical Ventilator 24 81 19 24 10/01/19 08:00 97.3 79 18 109/48 (68) 97 10/01/19 08:00 Mechanical Ventilator 10/01/19 08:00 24 10/01/19 07:05 78 17 24 10/01/19 05:08 76 15 24 10/01/19 04:00 77 10/01/19 04:00 98.6 77 15 121/54 (76) 99 10/01/19 04:00 Mechanical Ventilator 10/01/19 04:00 24 10/01/19 03:02 77 18 24 10/01/19 01:23 74 13 24 10/01/19 00:02 75 15 24 10/01/19 00:00 24 10/01/19 00:00 Mechanical Ventilator 10/01/19 00:00 98.1 75 15 127/54 (78) 99 10/01/19 00:00 72 09/30/19 21:36 73 12 99 Mechanical Ventilator 24 75 12 24 09/30/19 20:05 73 102/41 09/30/19 20:00 24 09/30/19 20:00 Mechanical Ventilator 09/30/19 20:00 75 09/30/19 20:00 98.4 75 14 101/50 (67) 95 09/30/19 19:01 74 12 24 09/30/19 16:41 75 13 24 09/30/19 16:00 97.3 81 19 98/52 (67) 100 09/30/19 16:00 24 09/30/19 16:00 73 8/22/20 16:00 Mechanical Ventilator 09/30/19 14:59 75 12 24 09/30/19 13:28 73 12 24 09/30/19 12:00 Mechanical Ventilator 09/30/19 12:00 70 09/30/19 12:00 98.1 66 19 112/48 (69) 99 09/30/19 12:00 24 Height (Feet): 5 Height (Inches): 10.00 Weight (Pounds): 130 HEENT: mucous membranes moist, status post trach Respiratory/Chest: lungs clear, other - on ventilator Cardiovascular: normal rate Abdomen: soft, non tender, other - GT in place Extremities: no edema Neurologic/Psychiatric: other - opens eyes Laboratory Tests Test 09/30/19 12:01 09/30/19 17:05 09/30/19 23:27 10/01/19 05:25 POC Whole Blood Glucose 120 MG/DL (74-106) H Pending Pending Pending Test 10/01/19 06:10 White Blood Count 15.3 K/UL (4.8-10.8) H Red Blood Count 3.78 M/UL (4.70-6.10) L Hemoglobin 9.5 G/DL (14.2-18.0) L Hematocrit 31.2 % (42.0-52.0) L Mean Corpuscular Volume 82 FL (80-99) Mean Corpuscular Hemoglobin 25.3 PG (27.0-31.0) L Mean Corpuscular Hemoglobin Concent 30.6 G/DL (32.0-36.0) L Red Cell Distribution Width 16.7 % (11.6-14.8) H Platelet Count 494 K/UL (150-450) H Mean Platelet Volume 5.6 FL (6.5-10.1) L Neutrophils (%) (Auto) 63.1 % (45.0-75.0) Lymphocytes (%) (Auto) 18.6 % (20.0-45.0) L Monocytes (%) (Auto) 6.8 % (1.0-10.0) Eosinophils (%) (Auto) 10.5 % (0.0-3.0) H Basophils (%) (Auto) 1.0 % (0.0-2.0) Sodium Level 128 MMOL/L (136-145) L Potassium Level 4.1 MMOL/L (3.5-5.1) Chloride Level 91 MMOL/L (98-107) L Carbon Dioxide Level 25 MMOL/L (21-32) Anion Gap 12 mmol/L (5-15) Blood Urea Nitrogen 87 mg/dL (7-18) H Creatinine 4.5 MG/DL (0.55-1.30) H Estimat Glomerular Filtration Rate 12.7 mL/min (>60) Glucose Level 172 MG/DL (74-106) H Calcium Level 8.9 MG/DL (8.5-10.1) Phosphorus Level 5.0 MG/DL (2.5-4.9) H Magnesium Level 2.4 MG/DL (1.8-2.4) Current Medications Medications (Trade) Dose Ordered Sig/Leonel Route PRN Reason Start Time Stop Time Status Last Admin Dose Admin Acetaminophen (Tylenol) 650 mg Q4H PRN GT Mild Pain (Pain Scale 1-3) 09/21/19 12:45 10/21/19 12:44 09/30/19 05:22 Atorvastatin Calcium (Lipitor) 40 mg BEDTIME GT 08/09/19 21:00 11/07/19 20:59 09/30/19 20:09 Chlorhexidine Gluconate (Felipa-Hex 2%) 1 applic DAILY@1999 TOPIC 09/12/19 20:00 12/11/19 19:59 09/30/19 20:10 Clonidine HCl (Catapres Tab) 0.1 mg Q4H PRN GT For High Blood Pressure 09/09/19 12:30 12/08/19 05:29 09/15/19 04:10 Colistimethate Sodium (Colistin *inhalation use only*) 75 mg Q12HR@ INH 09/27/19 22:00 10/04/19 21:59 10/01/19 08:51 Dextrose (Dextrose 50%) 25 ml Q30M PRN IV Hypoglycemia 08/09/19 07:30 11/07/19 07:29 Dextrose (Dextrose 50%) 50 ml Q30M PRN IV Hypoglycemia 08/09/19 07:30 11/07/19 07:29 Diphenoxylate HCl/ Atropine (Lomotil) 2.5 mg QID PRN ORAL Diarrhea 09/24/19 08:45 10/24/19 08:44 Epoetin Andreas (Epoetin Andreas(ESRD on dialysis)) 10,000 unit WED-WED-WED SUBQ 09/20/19 21:00 12/19/19 20:59 09/29/19 21:00 Famotidine (Pepcid) 20 mg DAILY GT 08/30/19 09:00 11/28/19 08:59 09/30/19 08:22 Heparin Sodium (Porcine) (Heparin Sod 1000 units/ml 10ml) 2,000 unit ONCE ONCE IV 10/01/19 16:15 10/01/19 16:16 Heparin Sodium (Porcine) (Heparin) 1,000 unit POSTHD INJ 09/30/19 14:15 11/14/19 14:14 Heparin Sodium (Porcine) (Heparin) 1,000 unit POSTHD INJ 10/01/19 16:15 11/15/19 16:14 Insulin Aspart (NovoLOG) Q6HR SUBQ 09/25/19 18:00 11/07/19 11:29 10/01/19 05:28 Lactobacillus Acidophilus (Culturelle) 1 tab TWICE A DAY GT 09/14/19 18:00 12/13/19 17:59 09/30/19 17:42 Metoprolol Tartrate (Lopressor) 200 mg Q12HR GT 08/09/19 09:00 11/07/19 08:59 09/29/19 08:59 Minoxidil (Loniten) 5 mg DAILY GT 08/09/19 09:00 11/07/19 08:59 09/29/19 08:58 Polyethylene Glycol (Miralax) 17 gm DAILY GT 09/28/19 11:00 10/28/19 10:59 09/30/19 08:20 Sodium Chloride 1,000 ml @ 500 mls/hr Q2H PRN IVLG sbp<90 during hd 09/30/19 14:03 10/30/19 14:02 Sodium Chloride 1,000 ml @ 500 mls/hr Q2H PRN IVLG sbp<90 during hd 10/01/19 16:08 10/31/19 16:07 Zinc Oxide (Zinc Oxide) 1 applic BID TOPIC 08/10/19 18:00 11/08/19 17:59 10/01/19 10:28 Real De Leon MD Oct 01, 2019 11:24
[2019-10-01 12:00] VITALS: BP 130/62
[2019-10-01] MEDS ORDERED: Cefepime HCl 1 GM in D5W 55 ML IVPB SCH (12:00)
--- NOTE | 2019-10-01 12:47 | Hematology/Onc Progress Note ---
Assessment/Plan Assessment/Plan Assessment/recs # Leukocytosis - with multiple infections, VRE UTI, flow is negative --> wbc trend 33-->28-->25->23->22->23->24->17.3-->17-->14->16-->15.6-->14-->14- >13->19->18->17->22->22->19->17-->18->20-->15-->14->16 --> on abx, linezolid and zosyn--> zosyn-->gent-->off --> + blood cultures with coag neg staph likely contaminated --> as per id recs --> has ordered a flow cytometry (with pathology) --> does show increased nK cell activity --> JOURDAN 2 and bcr-abl labs ordered (these are send outs) --> plt 585-->613-->649-->669->663-->529-->506 # Anemia due to chronic disease/kidney disease as well, gi bleed + occult + noted --> was on iron in the past, now on hold --> has been started on Epogen sq --> as per renal care --> egd done and shows gastritis --> on ppi --> egd showed gastritis, colo recently done --> hgb 9-->8.7-->7.6-->9.2-->8.9-->9.2->9.3-->8.8->9.9-->9.2-->8.1-->8.7-->7.9- ->8.6-->8.9-->8.2->9-->9.3->8.9-->9.5 # Respiratory failure --> per pulm, s/p trach --> COVID 19 test negative x 2 # Hyperlipidemia --> statin po # Dysphagia s/p gtube with nepro --> per gi # ESRD with r fem julito --> hd as per renal # Dvt ppx scds Appreciate consultation and dw Rn Subjective Constitutional: Denies: no symptoms, chills, fever, malaise, weakness, other Cardiovascular: Denies: no symptoms, chest pain, edema, irregular heart rate, lightheadedness, palpitations, syncope, other Respiratory: Denies: no symptoms, cough, shortness of breath, SOB with excertion, SOB at rest, sputum, wheezing, other Gastrointestinal/Abdominal: Denies: no symptoms, abdomen distended, abdominal pain, black stools, tarry stools, blood in stool, constipated, diarrhea, difficulty swallowing, nausea, poor appetite, poor fluid intake, rectal bleeding , vomiting, other Genitourinary: Denies: no symptoms, burning, discharge, frequency, flank pain, hematuria, incontinence, pain, urgency, other Hematologic/Lymphatic: Denies: no symptoms, anemia, easy bleeding, easy bruising, adenopathy, other Allergies: Coded Allergies: No Known Allergies (Unverified , 06/10/19) Subjective 08/15 meds noted, no bleeding, hgb 8.8, wbc 28, path flow pending 08/16 flow pending dw pathologist, results pending, wbc 25, hgb 9 08/17 labs reviewed, meds reviewed, meds noted, no night sweats 08/19 remains obtunded, on vent/trach, no bleeding wbc 21.7 08/20 labs have been reviewed, no bleeding, wbc still elev, path reviewed 08/21 labs are noted, no bleeding, on vent, wbc better 08/22 labs noted, no bleeding, meds reviewed, wbc 24 hgb 7.6 08/23 vent, off abx, c diff negative, h/h stable 08/24 labs reviewed, on abx, wbc 17, hgb 8.9, no hemolysis 08/26 reviewed flow and is negative for leukemia, matt rn 08/27 meds reviewed, no night sweats, matt rn, no major bleeding 08/28 meds reivewed, labs noted 08/29 wbc is stable, approx 15, hgb 8.8, no hemolysis 08/30 labs are noted, is for colo today, hgb 9.9 08/31 right fem julito in place, unchanged, hgb 9.2, gi aware 09/01 labs noted, hgb 8.8, plt >600, no bleeding 09/02 labs noted, no bleeding, with elev wbc still, no new changes 09/03 meds are noted, no bleeding, labs reviewed hgb 8.6 09/04 no major events, hd as per renal, abx, no bleeding hgb low 09/05 labs are noted, no bleeding, meds have been reviewed 09/06 no new labs no hemolysis, cbc is noted, no bleeding 09/07 meds reviewed, no bleeding, matt rn, permacath functioning well 09/09 meds reviewed, wbc still elevated, as per id recs, cbc noted 09/10 is obtunded, with gutbe in place, labs reviewed 09/11 obtunded, as per id, observe now off abx, labs noted, wbc 19 09/12 cbc is pending, remains on epogen, also off abx 09/13 labs reviewed, no bleeding, elev wbc, no night sweats 09/14 meds noted, no bleeding, wbc 19, hgb 9.5, no night sweats 09/21 obtunded, remains on vent, labs noted, no bleeding, hgb 8.9 09/22 obtunded, labs noted, no bleeding, on vent, unchanged 09/23 unchanges, wbc remains elevated 20k, on abx, on vent 09/24 labs have been reviewed, no bleeding, wbc 15, may need abx 09/25 formula gtube changed, labs noted, remains obtunded, hgb 9.3 09/26 labs have been reviewed, no bleeding, matt rn, no night sweats 09/27 meds reviewed, no bleeding, wbc 14, on abx, remains obtunded 09/28 remains obtunded, no bleeding, wbc better, hgb 8.9, no hemolysis, plt 506 09/30 on colisitn, wbc elevated, cefepime added per id, hgb stable Objective Objective Current Medications Medications (Trade) Dose Ordered Sig/Leonel Route PRN Reason Start Time Stop Time Status Last Admin Dose Admin Acetaminophen (Tylenol) 650 mg Q4H PRN GT Mild Pain (Pain Scale 1-3) 09/21/19 12:45 10/21/19 12:44 09/30/19 05:22 Atorvastatin Calcium (Lipitor) 40 mg BEDTIME GT 08/09/19 21:00 11/07/19 20:59 09/30/19 20:09 Cefepime HCl 1 gm/ Dextrose 55 ml @ 110 mls/hr ONCE IVPB 10/01/19 12:00 10/08/19 13:00 10/01/19 12:45 Cefepime HCl 500 mg/Dextrose 55 ml @ 110 mls/hr Q24H IVPB 10/02/19 12:00 10/09/19 11:59 Chlorhexidine Gluconate (Felipa-Hex 2%) 1 applic DAILY@1999 TOPIC 09/12/19 20:00 12/11/19 19:59 09/30/19 20:10 Clonidine HCl (Catapres Tab) 0.1 mg Q4H PRN GT For High Blood Pressure 09/09/19 12:30 12/08/19 05:29 09/15/19 04:10 Colistimethate Sodium (Colistin *inhalation use only*) 75 mg Q12HR@ INH 09/27/19 22:00 10/04/19 21:59 10/01/19 08:51 Dextrose (Dextrose 50%) 25 ml Q30M PRN IV Hypoglycemia 08/09/19 07:30 11/07/19 07:29 Dextrose (Dextrose 50%) 50 ml Q30M PRN IV Hypoglycemia 08/09/19 07:30 11/07/19 07:29 Diphenoxylate HCl/ Atropine (Lomotil) 2.5 mg QID PRN ORAL Diarrhea 09/24/19 08:45 10/24/19 08:44 Epoetin Andreas (Epoetin Andreas(ESRD on dialysis)) 10,000 unit -WED SUBQ 09/20/19 21:00 12/19/19 20:59 09/29/19 21:00 Famotidine (Pepcid) 20 mg DAILY GT 08/30/19 09:00 11/28/19 08:59 09/30/19 08:22 Heparin Sodium (Porcine) (Heparin Sod 1000 units/ml 10ml) 2,000 unit ONCE ONCE IV 10/01/19 16:15 10/01/19 16:16 Heparin Sodium (Porcine) (Heparin) 1,000 unit POSTHD INJ 09/30/19 14:15 11/14/19 14:14 Heparin Sodium (Porcine) (Heparin) 1,000 unit POSTHD INJ 10/01/19 16:15 11/15/19 16:14 Insulin Aspart (NovoLOG) Q6HR SUBQ 09/25/19 18:00 11/07/19 11:29 10/01/19 12:17 Lactobacillus Acidophilus (Culturelle) 1 tab TWICE A DAY GT 09/14/19 18:00 12/13/19 17:59 09/30/19 17:42 Metoprolol Tartrate (Lopressor) 200 mg Q12HR GT 08/09/19 09:00 11/07/19 08:59 09/29/19 08:59 Minoxidil (Loniten) 5 mg DAILY GT 08/09/19 09:00 11/07/19 08:59 09/29/19 08:58 Polyethylene Glycol (Miralax) 17 gm DAILY GT 09/28/19 11:00 10/28/19 10:59 09/30/19 08:20 Sodium Chloride 1,000 ml @ 500 mls/hr Q2H PRN IVLG sbp<90 during hd 09/30/19 14:03 10/30/19 14:02 Sodium Chloride 1,000 ml @ 500 mls/hr Q2H PRN IVLG sbp<90 during hd 10/01/19 16:08 10/31/19 16:07 Zinc Oxide (Zinc Oxide) 1 applic BID TOPIC 08/10/19 18:00 11/08/19 17:59 10/01/19 10:28 Last 24 Hour Vital Signs Date Time Temp Pulse Resp B/P (MAP) Pulse Ox O2 Delivery O2 Flow Rate FiO2 10/01/19 12:40 91 22 24 10/01/19 12:27 Mechanical Ventilator 10/01/19 12:00 97.0 86 20 130/62 (84) 97 10/01/19 12:00 24 10/01/19 10:45 84 17 24 10/01/19 08:52 82 12 100 Mechanical Ventilator 24 81 19 24 10/01/19 08:00 97.3 79 18 109/48 (68) 97 10/01/19 08:00 Mechanical Ventilator 10/01/19 08:00 24 10/01/19 07:05 78 17 24 10/01/19 05:08 76 15 24 10/01/19 04:00 77 10/01/19 04:00 98.6 77 15 121/54 (76) 99 10/01/19 04:00 Mechanical Ventilator 10/01/19 04:00 24 10/01/19 03:02 77 18 24 10/01/19 01:23 74 13 24 10/01/19 00:02 75 15 24 10/01/19 00:00 24 10/01/19 00:00 Mechanical Ventilator 10/01/19 00:00 98.1 75 15 127/54 (78) 99 10/01/19 00:00 72 09/30/19 21:36 73 12 99 Mechanical Ventilator 24 75 12 24 09/30/19 20:05 73 102/41 09/30/19 20:00 24 09/30/19 20:00 Mechanical Ventilator 09/30/19 20:00 75 09/30/19 20:00 98.4 75 14 101/50 (67) 95 09/30/19 19:01 74 12 24 09/30/19 16:41 75 13 24 09/30/19 16:00 97.3 81 19 98/52 (67) 100 09/30/19 16:00 24 09/30/19 16:00 73 09/30/19 16:00 Mechanical Ventilator 09/30/19 14:59 75 12 24 09/30/19 13:28 73 12 24 09/30/19 12:00 Mechanical Ventilator 09/30/19 12:00 70 09/30/19 12:00 98.1 66 19 112/48 (69) 99 09/30/19 12:00 24 09/30/19 10:45 73 12 24 09/30/19 08:43 78 13 99 24 74 13 24 09/30/19 08:00 98.4 78 19 100/43 (62) 98 09/30/19 08:00 24 09/30/19 08:00 Mechanical Ventilator 09/30/19 08:00 76 09/30/19 07:30 78 12 24 09/30/19 05:52 98.4 09/30/19 04:00 Mechanical Ventilator 09/30/19 04:00 86 09/30/19 04:00 100.4 85 19 117/53 (74) 98 09/30/19 04:00 24 09/30/19 03:30 84 12 24 09/30/19 00:00 Mechanical Ventilator 09/30/19 00:00 91 09/30/19 00:00 24 09/29/19 23:13 87 12 100 24 73 12 24 09/29/19 23:02 99.5 89 19 128/61 (83) 96 09/29/19 20:00 Mechanical Ventilator 09/29/19 20:00 82 09/29/19 20:00 98.6 85 19 120/53 (75) 95 09/29/19 19:38 82 14 24 09/29/19 16:13 Mechanical Ventilator 09/29/19 16:01 98.6 77 19 99/47 (64) 97 09/29/19 16:00 77 09/29/19 16:00 24 09/29/19 15:20 77 14 24 Intake and Output 09/30/19 10/01/19 19:00 07:00 Intake Total 920 ml 660 ml Output Total 200 ml 100 ml Balance 720 ml 560 ml Free Water 200 ml Tube Feeding 720 ml 660 ml Stool Total 200 ml 100 ml Labs Test 09/28/19 17:22 09/28/19 23:19 09/29/19 06:04 09/29/19 12:21 Test 09/29/19 16:55 09/29/19 21:42 09/30/19 05:13 09/30/19 05:50 POC Whole Blood Glucose 213 MG/DL (74-106) White Blood Count 17.2 K/UL (4.8-10.8) Red Blood Count 3.84 M/UL (4.70-6.10) Hemoglobin 9.7 G/DL (14.2-18.0) Hematocrit 31.8 % (42.0-52.0) Mean Corpuscular Volume 83 FL (80-99) Mean Corpuscular Hemoglobin 25.2 PG (27.0-31.0) Mean Corpuscular Hemoglobin Concent 30.4 G/DL (32.0-36.0) Red Cell Distribution Width 17.0 % (11.6-14.8) Platelet Count 474 K/UL (150-450) Mean Platelet Volume 5.9 FL (6.5-10.1) Neutrophils (%) (Auto) 58.6 % (45.0-75.0) Lymphocytes (%) (Auto) 22.7 % (20.0-45.0) Monocytes (%) (Auto) 11.0 % (1.0-10.0) Eosinophils (%) (Auto) 6.6 % (0.0-3.0) Basophils (%) (Auto) 1.1 % (0.0-2.0) Sodium Level 130 MMOL/L (136-145) Potassium Level 3.8 MMOL/L (3.5-5.1) Chloride Level 93 MMOL/L (98-107) Carbon Dioxide Level 26 MMOL/L (21-32) Anion Gap 11 mmol/L (5-15) Blood Urea Nitrogen 72 mg/dL (7-18) Creatinine 3.8 MG/DL (0.55-1.30) Estimat Glomerular Filtration Rate 15.5 mL/min (>60) Glucose Level 184 MG/DL (74-106) Calcium Level 8.9 MG/DL (8.5-10.1) Test 09/30/19 12:01 09/30/19 17:05 09/30/19 23:27 10/01/19 05:25 POC Whole Blood Glucose 120 MG/DL (74-106) Test 10/01/19 06:10 White Blood Count 15.3 K/UL (4.8-10.8) Red Blood Count 3.78 M/UL (4.70-6.10) Hemoglobin 9.5 G/DL (14.2-18.0) Hematocrit 31.2 % (42.0-52.0) Mean Corpuscular Volume 82 FL (80-99) Mean Corpuscular Hemoglobin 25.3 PG (27.0-31.0) Mean Corpuscular Hemoglobin Concent 30.6 G/DL (32.0-36.0) Red Cell Distribution Width 16.7 % (11.6-14.8) Platelet Count 494 K/UL (150-450) Mean Platelet Volume 5.6 FL (6.5-10.1) Neutrophils (%) (Auto) 63.1 % (45.0-75.0) Lymphocytes (%) (Auto) 18.6 % (20.0-45.0) Monocytes (%) (Auto) 6.8 % (1.0-10.0) Eosinophils (%) (Auto) 10.5 % (0.0-3.0) Basophils (%) (Auto) 1.0 % (0.0-2.0) Sodium Level 128 MMOL/L (136-145) Potassium Level 4.1 MMOL/L (3.5-5.1) Chloride Level 91 MMOL/L (98-107) Carbon Dioxide Level 25 MMOL/L (21-32) Anion Gap 12 mmol/L (5-15) Blood Urea Nitrogen 87 mg/dL (7-18) Creatinine 4.5 MG/DL (0.55-1.30) Estimat Glomerular Filtration Rate 12.7 mL/min (>60) Glucose Level 172 MG/DL (74-106) Calcium Level 8.9 MG/DL (8.5-10.1) Phosphorus Level 5.0 MG/DL (2.5-4.9) Magnesium Level 2.4 MG/DL (1.8-2.4) Height (Feet): 5 Height (Inches): 10.00 Weight (Pounds): 130 Objective Physical Exam General Appearance: nad, Chronically Ill Head: normocephalic Eyes: right eye PERRL - Will not open left eye ENT: moist mucus membranes Neck: other - submandibular mass R, fairly rigid with resistance to rotation to L, tracheotomy Respiratory: decreased breath sounds, crackles, other - pacemaker, vent+ Cardiovascular: regular rate, rhythm, edema - anasarca Gastrointestinal: non tender, distended, other - G tube Genitourinary: other Musculoskeletal: other - Contractures all extremities Neurologic: sensory intact, motor weakness, responsive Psychiatric: other Skin: Decubitus/Ulcer - Stage III right elbow, stage III left elbow, stage II sacrum, stage III scrotum, warm/dry Fitz Campos MD Oct 01, 2019 12:47
--- NOTE | 2019-10-01 13:30 | NUR ---
NURSE NOTES: Dialysis output- 1L per HD Nurse.
--- NOTE | 2019-10-01 13:30 | NUR ---
NURSE NOTES: Dialysis ended. No changes in condition. BP 130/80. No signs of hypotension noted.
--- NOTE | 2019-10-01 14:26 | NUR ---
CASE MANAGEMENT:REVIEW 10/01/19 SI: SEPSIS. PNA TRACH/VENT/GTUBE/DIALYSIS 97.0 86 20 130/62 % ON VENT SUPPORT W/24% FIO2 WBC+15.3 NA-128 BUN+87 CR+4.5 IS: IV CEFEPIME Q24 COLISTIN INH Q12 SS INSULIN SQ Q6HRS EPOETIN SQ MWF LACTOBACILLUS GT BID PEPCID GT QD LOPRESSOR GT Q12 MINOXIDIL GT QD : STEP DOWN UNIT PLAN: PATIENT HAS BEEN HERE FOR 54 DAYS 2 WEEKS AGO WHEN OUR [facility] [employer] [facility] SOLIDIFIED SNF AND DIALYSIS PLACEMENT FOR THIS PATIENT THE HEALTH PLAN GAVE THE BED AWAY TO ANOTHER ONE OF THEIR MEMBERS HEALTH PLAN HAS NOT BEEN INSTRUMENTAL IN HELPING US DISCHARGE THIS PATIENT FROM OUR HOSPITAL
[2019-10-01 16:00] VITALS: BP 123/60
[2019-10-01] MEDS ORDERED: Heparin Sod 1000 units/ml 10ml IV ONE (16:15)
[2019-10-01] MEDS ORDERED: Heparin 1000 units/ml 1ml Vial INJ SCH (16:15)
[2019-10-01 16:40] LABS: BASOPHILS % (AUTO) 0.9 % (0.0-2.0); EOSINOPHILS % (AUTO) 3.1 % (0.0-3.0); HEMATOCRIT 34.1 % (42.0-52.0); HEMOGLOBIN 10.6 G/DL (14.2-18.0); LYMPHOCYTES % (AUTO) 10.5 % (20.0-45.0); MEAN CORPUSCULAR VOLUME 82 FL (80-99); MONOCYTES % (AUTO) 6.7 % (1.0-10.0); NEUTROPHILS % (AUTO) 78.8 % (45.0-75.0); PLATELET COUNT 469 K/UL (150-450); RED BLOOD COUNT 4.16 M/UL (4.70-6.10); RED CELL DISTRIBUTION WIDTH 17.2 % (11.6-14.8); WHITE BLOOD COUNT 14.4 K/UL (4.8-10.8)
[2019-10-01 17:32] LABS: ANION GAP 3 mmol/L (5-15); BLOOD UREA NITROGEN 44 mg/dL (7-18); CALCIUM 9.1 MG/DL (8.5-10.1); CARBON DIOXIDE 28 MMOL/L (21-32); CHLORIDE 93 MMOL/L (98-107); POTASSIUM 3.7 MMOL/L (3.5-5.1); SODIUM 124 MMOL/L (136-145)
--- NOTE | 2019-10-01 19:27 | NUR ---
NURSE HAND-OFF REPORT: Important Events on Shift: Hemodialysis 1L output per HD Nurse Patient Status: Stable Diet: Gtube feeding,Osmolite 1.2 @60ml/hr Pending Orders: NOne Pending Results/Labs:None Pending MD notification:NOne Latest Vital Signs: Temperature 97.2 , Pulse 97 , B/P 123 /60 , Respiratory Rate 20 , O2 SAT 96 , Mechanical Ventilator, O2 Flow Rate 15.0 . Vital Sign Comment: WNL EKG Rhythm: V-Paced Rhythm change?: N MD Notified?: N - MD Response: Latest Delacruz Fall Score: 70 Fall Risk: High Risk Safety Measures: Call light Within Reach, Bed Alarm Zone 1, Side Rails Side Rails x3, Bed position Low and Locked. Fall Precautions: Yellow Socks Report given to Agnieszka Worley RN/TAMICA Curtis
--- NOTE | 2019-10-01 19:45 | NUR ---
NURSE NOTES: Received patient from TAMICA Bills. Patient is asleep but opens eyes to voice. Trach is in place, G tube feeding is running. Rectal tube is draining well. Bed in lowest position, call light within reach will continue to monitor.
[2019-10-01 20:00] VITALS: BP 91/52
--- NOTE | 2019-10-01 20:12 | NUR ---
NURSE NOTES: Called and left a message with doctor James regarding patient sodium level. Awaiting call back.
--- NOTE | 2019-10-01 20:18 | NUR ---
NURSE NOTES: Called and left a message with Dr. Pichardo regarding patient sodium level. awaiting call back.
[2019-10-01] MEDS: Dyna-Hex 2% Top Sol 2oz TOPIC SCH (20:33)
[2019-10-01] MEDS: Atorvastatin 20mg tab GT SCH (20:33)
--- NOTE | 2019-10-01 21:08 | Nephrology Progress Note ---
Assessment/Plan Plan MOF Established ESRD - HD now TTS. Anemia of CKD -TUYET. Had Hd. Na 124 pre HD. To repeat in am. Subjective Subjective Obtunded. Objective Objective Last 24 Hour Vital Signs Date Time Temp Pulse Resp B/P (MAP) Pulse Ox O2 Delivery O2 Flow Rate FiO2 10/01/19 19:35 94 18 24 10/01/19 16:34 97 20 24 10/01/19 16:00 97.2 100 18 123/60 (81) 96 10/01/19 16:00 24 10/01/19 16:00 Mechanical Ventilator 10/01/19 16:00 99 10/01/19 14:47 100 22 24 10/01/19 12:40 91 22 24 10/01/19 12:27 Mechanical Ventilator 10/01/19 12:02 84 10/01/19 12:00 97.0 86 20 130/62 (84) 97 10/01/19 12:00 24 10/01/19 10:45 84 17 24 10/01/19 08:52 82 12 100 Mechanical Ventilator 24 81 19 24 10/01/19 08:04 79 10/01/19 08:00 97.3 79 18 109/48 (68) 97 10/01/19 08:00 Mechanical Ventilator 10/01/19 08:00 24 10/01/19 07:05 78 17 24 10/01/19 05:08 76 15 24 10/01/19 04:00 77 10/01/19 04:00 98.6 77 15 121/54 (76) 99 10/01/19 04:00 Mechanical Ventilator 10/01/19 04:00 24 10/01/19 03:02 77 18 24 10/01/19 01:23 74 13 24 10/01/19 00:02 75 15 24 10/01/19 00:00 24 10/01/19 00:00 Mechanical Ventilator 10/01/19 00:00 98.1 75 15 127/54 (78) 99 10/01/19 00:00 72 09/30/19 21:36 73 12 99 Mechanical Ventilator 24 75 12 24 Intake and Output 09/30/19 10/01/19 19:00 07:00 Intake Total 920 ml 660 ml Output Total 200 ml 100 ml Balance 720 ml 560 ml Free Water 200 ml Tube Feeding 720 ml 660 ml Stool Total 200 ml 100 ml Laboratory Tests 09/30/19 23:27: POC Whole Blood Glucose [Pending] 10/01/19 05:25: POC Whole Blood Glucose [Pending] 10/01/19 06:10: White Blood Count 15.3H, Red Blood Count 3.78L, Hemoglobin 9.5L, Hematocrit 31.2L, Mean Corpuscular Volume 82, Mean Corpuscular Hemoglobin 25.3L, Mean Corpuscular Hemoglobin Concent 30.6L, Red Cell Distribution Width 16.7H, Platelet Count 494H, Mean Platelet Volume 5.6L, Neutrophils (%) (Auto) 63.1, Lymphocytes (%) (Auto) 18.6L, Monocytes (%) (Auto) 6.8, Eosinophils (%) (Auto) 10.5H, Basophils (%) (Auto) 1.0, Sodium Level 128L, Potassium Level 4.1, Chloride Level 91L, Carbon Dioxide Level 25, Anion Gap 12, Blood Urea Nitrogen 87H, Creatinine 4.5H, Estimat Glomerular Filtration Rate 12.7, Glucose Level 172H, Calcium Level 8.9, Phosphorus Level 5.0H, Magnesium Level 2.4 10/01/19 16:30: White Blood Count 14.4H, Red Blood Count 4.16L, Hemoglobin 10.6L, Hematocrit 34.1L, Mean Corpuscular Volume 82, Mean Corpuscular Hemoglobin 25.4L, Mean Corpuscular Hemoglobin Concent 31.1L, Red Cell Distribution Width 17.2H, Platelet Count 469H, Mean Platelet Volume 6.0L, Neutrophils (%) (Auto) 78.8H, Lymphocytes (%) (Auto) 10.5L, Monocytes (%) (Auto) 6.7, Eosinophils (%) (Auto) 3.1H, Basophils (%) (Auto) 0.9, Sodium Level 124L, Potassium Level 3.7, Chloride Level 93L, Carbon Dioxide Level 28, Anion Gap 3L, Blood Urea Nitrogen 44H, Creatinine 3.0H, Estimat Glomerular Filtration Rate 20.3, Glucose Level 223H, Calcium Level 9.1 10/01/19 18:15: POC Whole Blood Glucose 241H Height (Feet): 5 Height (Inches): 10.00 Weight (Pounds): 130 Objective CV RR Trach clean Lungs CTA New Perma Cath RIJ. Abd SNT. BS + E No CCE Erica Pichardo MD Oct 01, 2019 21:08
[2019-10-02] VITALS: BP 103/65
[2019-10-02] MEDS: NovoLOG Insulin Flexpen SUBQ SCH ×4 (00:13→18:44)
[2019-10-02 04:00] VITALS: BP 160/79
--- NOTE | 2019-10-02 06:34 | Hematology/Onc Progress Note ---
Assessment/Plan Assessment/Plan Assessment/recs # Leukocytosis - with multiple infections, VRE UTI, flow is negative --> wbc trend 33-->28-->25->23->22->23->24->17.3-->17-->14->16-->15.6-->14-->14- >13->19->18->17->22->22->19->17-->18->20-->15-->14->16-->14 --> on abx, linezolid and zosyn--> zosyn-->gent-->off --> + blood cultures with coag neg staph likely contaminated --> as per id recs --> has ordered a flow cytometry (with pathology) --> does show increased nK cell activity --> JOURDAN 2 and bcr-abl labs ordered (these are send outs) --> plt 585-->613-->649-->669->663-->529-->506 # Anemia due to chronic disease/kidney disease as well, gi bleed + occult + noted --> was on iron in the past, now on hold --> has been started on Epogen sq --> as per renal care --> egd done and shows gastritis --> on ppi --> egd showed gastritis, colo recently done --> hgb 9-->8.7-->7.6-->9.2-->8.9-->9.2->9.3-->8.8->9.9-->9.2-->8.1-->8.7-->7.9- ->8.6-->8.9-->8.2->9-->9.3->8.9-->9.5-->10.6 # Respiratory failure --> per pulm, s/p trach --> COVID 19 test negative x 2 # Hyperlipidemia --> statin po # Dysphagia s/p gtube with nepro --> per gi # ESRD with r fem julito --> hd as per renal # Dvt ppx scds Appreciate consultation and matt Rn Subjective Gastrointestinal/Abdominal: Denies: no symptoms, abdomen distended, abdominal pain, black stools, tarry stools, blood in stool, constipated, diarrhea, difficulty swallowing, nausea, poor appetite, poor fluid intake, rectal bleeding , vomiting, other Genitourinary: Denies: no symptoms, burning, discharge, frequency, flank pain, hematuria, incontinence, pain, urgency, other Allergies: Coded Allergies: No Known Allergies (Unverified , 06/10/19) All Systems: reviewed and negative except above Subjective 08/15 meds noted, no bleeding, hgb 8.8, wbc 28, path flow pending 08/16 flow pending dw pathologist, results pending, wbc 25, hgb 9 08/17 labs reviewed, meds reviewed, meds noted, no night sweats 08/19 remains obtunded, on vent/trach, no bleeding wbc 21.7 08/20 labs have been reviewed, no bleeding, wbc still elev, path reviewed 08/21 labs are noted, no bleeding, on vent, wbc better 08/22 labs noted, no bleeding, meds reviewed, wbc 24 hgb 7.6 08/23 vent, off abx, c diff negative, h/h stable 08/24 labs reviewed, on abx, wbc 17, hgb 8.9, no hemolysis 08/26 reviewed flow and is negative for leukemia, matt rn 08/27 meds reviewed, no night sweats, matt rn, no major bleeding 08/28 meds reivewed, labs noted 08/29 wbc is stable, approx 15, hgb 8.8, no hemolysis 08/30 labs are noted, is for colo today, hgb 9.9 08/31 right fem julito in place, unchanged, hgb 9.2, gi aware 09/01 labs noted, hgb 8.8, plt >600, no bleeding 09/02 labs noted, no bleeding, with elev wbc still, no new changes 09/03 meds are noted, no bleeding, labs reviewed hgb 8.6 09/04 no major events, hd as per renal, abx, no bleeding hgb low 09/05 labs are noted, no bleeding, meds have been reviewed 09/06 no new labs no hemolysis, cbc is noted, no bleeding 09/07 meds reviewed, no bleeding, matt rn, permacath functioning well 09/09 meds reviewed, wbc still elevated, as per id recs, cbc noted 09/10 is obtunded, with gutbe in place, labs reviewed 09/11 obtunded, as per id, observe now off abx, labs noted, wbc 19 09/12 cbc is pending, remains on epogen, also off abx 09/13 labs reviewed, no bleeding, elev wbc, no night sweats 09/14 meds noted, no bleeding, wbc 19, hgb 9.5, no night sweats 09/21 obtunded, remains on vent, labs noted, no bleeding, hgb 8.9 09/22 obtunded, labs noted, no bleeding, on vent, unchanged 09/23 unchanges, wbc remains elevated 20k, on abx, on vent 09/24 labs have been reviewed, no bleeding, wbc 15, may need abx 09/25 formula gtube changed, labs noted, remains obtunded, hgb 9.3 09/26 labs have been reviewed, no bleeding, matt rn, no night sweats 09/27 meds reviewed, no bleeding, wbc 14, on abx, remains obtunded 09/28 remains obtunded, no bleeding, wbc better, hgb 8.9, no hemolysis, plt 506 09/30 on colisitn, wbc elevated, cefepime added per id, hgb stable 10/01 labs reviewed, no bleeding, matt rn, no major events noted, wbc 14, hgb 10.6 Objective Objective Current Medications Medications (Trade) Dose Ordered Sig/Leonel Route PRN Reason Start Time Stop Time Status Last Admin Dose Admin Acetaminophen (Tylenol) 650 mg Q4H PRN GT Mild Pain (Pain Scale 1-3) 09/21/19 12:45 10/21/19 12:44 09/30/19 05:22 Atorvastatin Calcium (Lipitor) 40 mg BEDTIME GT 08/09/19 21:00 11/07/19 20:59 10/01/19 20:33 Cefepime HCl 1 gm/ Dextrose 55 ml @ 110 mls/hr ONCE IVPB 10/01/19 12:00 10/08/19 13:00 10/01/19 12:45 Cefepime HCl 500 mg/Dextrose 55 ml @ 110 mls/hr Q24H IVPB 10/02/19 12:00 10/09/19 11:59 Chlorhexidine Gluconate (Felipa-Hex 2%) 1 applic DAILY@1999 TOPIC 09/12/19 20:00 12/11/19 19:59 10/01/19 20:33 Clonidine HCl (Catapres Tab) 0.1 mg Q4H PRN GT For High Blood Pressure 09/09/19 12:30 12/08/19 05:29 09/15/19 04:10 Colistimethate Sodium (Colistin *inhalation use only*) 75 mg Q12HR@ INH 09/27/19 22:00 10/04/19 21:59 10/01/19 23:12 Dextrose (Dextrose 50%) 25 ml Q30M PRN IV Hypoglycemia 08/09/19 07:30 11/07/19 07:29 Dextrose (Dextrose 50%) 50 ml Q30M PRN IV Hypoglycemia 08/09/19 07:30 11/07/19 07:29 Diphenoxylate HCl/ Atropine (Lomotil) 2.5 mg QID PRN ORAL Diarrhea 09/24/19 08:45 10/24/19 08:44 Epoetin Andreas (Epoetin Andreas(ESRD on dialysis)) 10,000 unit WED-WED-WED SUBQ 09/20/19 21:00 12/19/19 20:59 09/29/19 21:00 Famotidine (Pepcid) 20 mg DAILY GT 08/30/19 09:00 11/28/19 08:59 09/30/19 08:22 Heparin Sodium (Porcine) (Heparin) 1,000 unit POSTHD INJ 09/30/19 14:15 11/14/19 14:14 Heparin Sodium (Porcine) (Heparin) 1,000 unit POSTHD INJ 10/01/19 16:15 11/15/19 16:14 Insulin Aspart (NovoLOG) Q6HR SUBQ 09/25/19 18:00 11/07/19 11:29 10/02/19 00:13 Lactobacillus Acidophilus (Culturelle) 1 tab TWICE A DAY GT 09/14/19 18:00 12/13/19 17:59 10/01/19 18:17 Metoprolol Tartrate (Lopressor) 200 mg Q12HR GT 08/09/19 09:00 11/07/19 08:59 09/29/19 08:59 Minoxidil (Loniten) 5 mg DAILY GT 08/09/19 09:00 11/07/19 08:59 09/29/19 08:58 Polyethylene Glycol (Miralax) 17 gm DAILY GT 09/28/19 11:00 10/28/19 10:59 09/30/19 08:20 Sodium Chloride 1,000 ml @ 500 mls/hr Q2H PRN IVLG sbp<90 during hd 09/30/19 14:03 10/30/19 14:02 Sodium Chloride 1,000 ml @ 500 mls/hr Q2H PRN IVLG sbp<90 during hd 10/01/19 16:08 10/31/19 16:07 Zinc Oxide (Zinc Oxide) 1 applic BID TOPIC 08/10/19 18:00 11/08/19 17:59 10/01/19 18:17 Last 24 Hour Vital Signs Date Time Temp Pulse Resp B/P (MAP) Pulse Ox O2 Delivery O2 Flow Rate FiO2 10/02/19 04:00 24 10/02/19 04:00 Mechanical Ventilator 10/02/19 04:00 98.4 86 13 160/79 (106) 94 10/02/19 04:00 85 10/02/19 03:01 85 13 24 10/02/19 00:00 89 10/02/19 00:00 98.4 92 14 103/65 (78) 97 10/02/19 00:00 24 10/02/19 00:00 Mechanical Ventilator 10/01/19 23:13 87 14 100 Mechanical Ventilator 24 84 12 24 10/01/19 20:00 24 10/01/19 20:00 Mechanical Ventilator 10/01/19 20:00 98.1 94 20 91/52 (65) 97 10/01/19 19:35 94 18 24 10/01/19 16:34 97 20 24 10/01/19 16:00 97.2 100 18 123/60 (81) 96 10/01/19 16:00 24 10/01/19 16:00 Mechanical Ventilator 10/01/19 16:00 99 10/01/19 14:47 100 22 24 10/01/19 12:40 91 22 24 10/01/19 12:27 Mechanical Ventilator 8/23/20 12:02 84 10/01/19 12:00 97.0 86 20 130/62 (84) 97 10/01/19 12:00 24 10/01/19 10:45 84 17 24 10/01/19 08:52 82 12 100 Mechanical Ventilator 24 81 19 24 10/01/19 08:04 79 10/01/19 08:00 97.3 79 18 109/48 (68) 97 10/01/19 08:00 Mechanical Ventilator 10/01/19 08:00 24 10/01/19 07:05 78 17 24 10/01/19 05:08 76 15 24 10/01/19 04:00 77 10/01/19 04:00 98.6 77 15 121/54 (76) 99 10/01/19 04:00 Mechanical Ventilator 10/01/19 04:00 24 10/01/19 03:02 77 18 24 10/01/19 01:23 74 13 24 10/01/19 00:02 75 15 24 10/01/19 00:00 24 10/01/19 00:00 Mechanical Ventilator 10/01/19 00:00 98.1 75 15 127/54 (78) 99 10/01/19 00:00 72 09/30/19 21:36 73 12 99 Mechanical Ventilator 24 75 12 24 09/30/19 20:05 73 102/41 09/30/19 20:00 24 09/30/19 20:00 Mechanical Ventilator 09/30/19 20:00 75 09/30/19 20:00 98.4 75 14 101/50 (67) 95 09/30/19 19:01 74 12 24 09/30/19 16:41 75 13 24 09/30/19 16:00 97.3 81 19 98/52 (67) 100 09/30/19 16:00 24 09/30/19 16:00 73 09/30/19 16:00 Mechanical Ventilator 09/30/19 14:59 75 12 24 09/30/19 13:28 73 12 24 09/30/19 12:00 Mechanical Ventilator 09/30/19 12:00 70 09/30/19 12:00 98.1 66 19 112/48 (69) 99 09/30/19 12:00 24 09/30/19 10:45 73 12 24 09/30/19 08:43 78 13 99 24 74 13 24 09/30/19 08:00 98.4 78 19 100/43 (62) 98 09/30/19 08:00 24 09/30/19 08:00 Mechanical Ventilator 09/30/19 08:00 76 09/30/19 07:30 78 12 24 Intake and Output 10/01/19 10/02/19 19:00 07:00 Intake Total 115 ml Output Total 100 ml Balance 15 ml IV Total 55 ml Tube Feeding 60 ml Stool Total 100 ml # Bowel Movements 100 Labs Test 09/29/19 12:21 09/29/19 16:55 09/29/19 21:42 09/30/19 05:13 POC Whole Blood Glucose 213 MG/DL (74-106) Test 09/30/19 05:50 09/30/19 12:01 09/30/19 17:05 09/30/19 23:27 White Blood Count 17.2 K/UL (4.8-10.8) Red Blood Count 3.84 M/UL (4.70-6.10) Hemoglobin 9.7 G/DL (14.2-18.0) Hematocrit 31.8 % (42.0-52.0) Mean Corpuscular Volume 83 FL (80-99) Mean Corpuscular Hemoglobin 25.2 PG (27.0-31.0) Mean Corpuscular Hemoglobin Concent 30.4 G/DL (32.0-36.0) Red Cell Distribution Width 17.0 % (11.6-14.8) Platelet Count 474 K/UL (150-450) Mean Platelet Volume 5.9 FL (6.5-10.1) Neutrophils (%) (Auto) 58.6 % (45.0-75.0) Lymphocytes (%) (Auto) 22.7 % (20.0-45.0) Monocytes (%) (Auto) 11.0 % (1.0-10.0) Eosinophils (%) (Auto) 6.6 % (0.0-3.0) Basophils (%) (Auto) 1.1 % (0.0-2.0) Sodium Level 130 MMOL/L (136-145) Potassium Level 3.8 MMOL/L (3.5-5.1) Chloride Level 93 MMOL/L (98-107) Carbon Dioxide Level 26 MMOL/L (21-32) Anion Gap 11 mmol/L (5-15) Blood Urea Nitrogen 72 mg/dL (7-18) Creatinine 3.8 MG/DL (0.55-1.30) Estimat Glomerular Filtration Rate 15.5 mL/min (>60) Glucose Level 184 MG/DL (74-106) Calcium Level 8.9 MG/DL (8.5-10.1) POC Whole Blood Glucose 120 MG/DL (74-106) Test 10/01/19 05:25 10/01/19 06:10 10/01/19 16:30 10/01/19 18:15 White Blood Count 15.3 K/UL (4.8-10.8) 14.4 K/UL (4.8-10.8) Red Blood Count 3.78 M/UL (4.70-6.10) 4.16 M/UL (4.70-6.10) Hemoglobin 9.5 G/DL (14.2-18.0) 10.6 G/DL (14.2-18.0) Hematocrit 31.2 % (42.0-52.0) 34.1 % (42.0-52.0) Mean Corpuscular Volume 82 FL (80-99) 82 FL (80-99) Mean Corpuscular Hemoglobin 25.3 PG (27.0-31.0) 25.4 PG (27.0-31.0) Mean Corpuscular Hemoglobin Concent 30.6 G/DL (32.0-36.0) 31.1 G/DL (32.0-36.0) Red Cell Distribution Width 16.7 % (11.6-14.8) 17.2 % (11.6-14.8) Platelet Count 494 K/UL (150-450) 469 K/UL (150-450) Mean Platelet Volume 5.6 FL (6.5-10.1) 6.0 FL (6.5-10.1) Neutrophils (%) (Auto) 63.1 % (45.0-75.0) 78.8 % (45.0-75.0) Lymphocytes (%) (Auto) 18.6 % (20.0-45.0) 10.5 % (20.0-45.0) Monocytes (%) (Auto) 6.8 % (1.0-10.0) 6.7 % (1.0-10.0) Eosinophils (%) (Auto) 10.5 % (0.0-3.0) 3.1 % (0.0-3.0) Basophils (%) (Auto) 1.0 % (0.0-2.0) 0.9 % (0.0-2.0) Sodium Level 128 MMOL/L (136-145) 124 MMOL/L (136-145) Potassium Level 4.1 MMOL/L (3.5-5.1) 3.7 MMOL/L (3.5-5.1) Chloride Level 91 MMOL/L (98-107) 93 MMOL/L (98-107) Carbon Dioxide Level 25 MMOL/L (21-32) 28 MMOL/L (21-32) Anion Gap 12 mmol/L (5-15) 3 mmol/L (5-15) Blood Urea Nitrogen 87 mg/dL (7-18) 44 mg/dL (7-18) Creatinine 4.5 MG/DL (0.55-1.30) 3.0 MG/DL (0.55-1.30) Estimat Glomerular Filtration Rate 12.7 mL/min (>60) 20.3 mL/min (>60) Glucose Level 172 MG/DL (74-106) 223 MG/DL (74-106) Calcium Level 8.9 MG/DL (8.5-10.1) 9.1 MG/DL (8.5-10.1) Phosphorus Level 5.0 MG/DL (2.5-4.9) Magnesium Level 2.4 MG/DL (1.8-2.4) POC Whole Blood Glucose 241 MG/DL (74-106) Test 10/02/19 00:08 Height (Feet): 5 Height (Inches): 10.00 Weight (Pounds): 130 Objective Physical Exam General Appearance: nad, Chronically Ill Head: normocephalic Eyes: right eye PERRL - Will not open left eye ENT: moist mucus membranes Neck: other - submandibular mass R, fairly rigid with resistance to rotation to L, tracheotomy Respiratory: decreased breath sounds, crackles, other - pacemaker, vent+ Cardiovascular: regular rate, rhythm, edema - anasarca Gastrointestinal: non tender, distended, other - G tube Genitourinary: other Musculoskeletal: other - Contractures all extremities Neurologic: sensory intact, motor weakness, responsive Psychiatric: other Skin: Decubitus/Ulcer - Stage III right elbow, stage III left elbow, stage II sacrum, stage III scrotum, warm/dry Fitz Campos MD Oct 02, 2019 06:34
--- NOTE | 2019-10-02 07:12 | NUR ---
NURSE NOTES: Received report from TAMICA Worley. pt in bed awake and unable to make needs known. IV site in left fore arm 20G SL and left hand 22G SL patent and asymptomatic. Side railsx3 up for safety. G-tube patent and asymptomatic. On rectal tube patent and asymptomatic. Will continue plan of care.
--- NOTE | 2019-10-02 07:12 | NUR ---
NURSE HAND-OFF REPORT: Important Events on Shift: SODIUM LEVEL LOW. REPEAT LABS ORDERED. FEEDING STOPPED AT 0600. Patient Status: STABLE Diet: OSMOLYTE Pending Orders: Y Pending Results/Labs:Y Pending MD notification:N Latest Vital Signs: Temperature 98.4 , Pulse 85 , B/P 160 /79 , Respiratory Rate 13 , O2 SAT 94 , Mechanical Ventilator, O2 Flow Rate 15.0 . Vital Sign Comment: BP RECHECKED. 140'S SYSTOLIC. PT STABLE EKG Rhythm: Sinus Rhythm with BBB Rhythm change?: Y MD Notified?: N - MD Response: Latest Delacruz Fall Score: 70 Fall Risk: High Risk Safety Measures: Call light Within Reach, Bed Alarm Zone 1, Side Rails Side Rails x3, Bed position Low and Locked. Fall Precautions: Y Yellow Socks Y Report given to TAMICA MARIN.
[2019-10-02 07:54] VITALS: BP 137/61
--- NOTE | 2019-10-02 08:00 | NUR ---
NURSE NOTES: Called [facility] nephrology to confirm HD scheduled for 10/02. Spoke to Sia, she states they call back to confirm.
--- NOTE | 2019-10-02 08:03 | General Progress Note ---
Assessment/Plan Assessment/Plan: IMPRESSION: 1. anemia. 2. fevers improved 3. Leukocytosis. 4. hypotension 5. Acute on chronic renal failure. 6. Hyponatremia. 7. Severe protein-calorie malnutrition. 8. Significantly elevated C-reactive protein concerning for infectious etiology. 9. Tracheostomy, G-tube. 10. Ventilator dependence. 11. anasarca 12. Hematuria 13. V pacing 14. hyponatremia PLAN correct sodium lomotil care noted on vent/ no wean monitor labs ID follow up monitor renal function: HD and adjust sodium prognosis poor impression, plan, and exam edited and reviewed in detail care discussed with RN Subjective Allergies: Coded Allergies: No Known Allergies (Unverified , 06/10/19) Subjective remains ill on vent/ no change on HD vitals noted diarrhea with rectal tube Objective Last 24 Hour Vital Signs Date Time Temp Pulse Resp B/P (MAP) Pulse Ox O2 Delivery O2 Flow Rate FiO2 10/02/19 07:54 98.4 77 13 137/61 (86) 99 10/02/19 07:30 73 12 24 10/02/19 04:00 24 10/02/19 04:00 Mechanical Ventilator 10/02/19 04:00 98.4 86 13 160/79 (106) 94 10/02/19 04:00 85 10/02/19 03:01 85 13 24 10/02/19 00:00 89 10/02/19 00:00 98.4 92 14 103/65 (78) 97 10/02/19 00:00 24 10/02/19 00:00 Mechanical Ventilator 10/01/19 23:13 87 14 100 Mechanical Ventilator 24 84 12 24 10/01/19 20:00 24 10/01/19 20:00 Mechanical Ventilator 10/01/19 20:00 98.1 94 20 91/52 (65) 97 10/01/19 19:35 94 18 24 10/01/19 16:34 97 20 24 10/01/19 16:00 97.2 100 18 123/60 (81) 96 10/01/19 16:00 24 10/01/19 16:00 Mechanical Ventilator 10/01/19 16:00 99 10/01/19 14:47 100 22 24 10/01/19 12:40 91 22 24 10/01/19 12:27 Mechanical Ventilator 10/01/19 12:02 84 10/01/19 12:00 97.0 86 20 130/62 (84) 97 10/01/19 12:00 24 10/01/19 10:45 84 17 24 10/01/19 08:52 82 12 100 Mechanical Ventilator 24 81 19 24 10/01/19 08:04 79 Intake and Output 10/01/19 10/02/19 19:00 07:00 Intake Total 115 ml 600 ml Output Total 100 ml 300 ml Balance 15 ml 300 ml IV Total 55 ml Tube Feeding 60 ml 600 ml Stool Total 100 ml 300 ml # Bowel Movements 100 Laboratory Tests 10/01/19 16:30: White Blood Count 14.4H, Red Blood Count 4.16L, Hemoglobin 10.6L, Hematocrit 34.1L, Mean Corpuscular Volume 82, Mean Corpuscular Hemoglobin 25.4L, Mean Corpuscular Hemoglobin Concent 31.1L, Red Cell Distribution Width 17.2H, Platelet Count 469H, Mean Platelet Volume 6.0L, Neutrophils (%) (Auto) 78.8H, Lymphocytes (%) (Auto) 10.5L, Monocytes (%) (Auto) 6.7, Eosinophils (%) (Auto) 3.1H, Basophils (%) (Auto) 0.9, Sodium Level 124L, Potassium Level 3.7, Chloride Level 93L, Carbon Dioxide Level 28, Anion Gap 3L, Blood Urea Nitrogen 44H, Creatinine 3.0H, Estimat Glomerular Filtration Rate 20.3, Glucose Level 223H, Calcium Level 9.1 10/01/19 18:15: POC Whole Blood Glucose 241H 10/02/19 00:08: POC Whole Blood Glucose [Pending] 10/02/19 07:04: POC Whole Blood Glucose [Pending] Height (Feet): 5 Height (Inches): 10.00 Weight (Pounds): 139 Objective GENERAL: Ill-appearing male, chronically debilitated. HEENT: Tracheostomy in midline. Questionable fullness in the submandibular region. LUNGS: Coarse breath sounds. reduced breath sounds CARDIAC: S1, S2. Regular rate and rhythm. ABDOMEN: Soft. G-tube. EXTREMITIES: With noted edema. NEUROLOGICAL: Poorly responsive, weak diffusely. Kain Ramirez MD Oct 02, 2019 08:03
[2019-10-02 08:43] LABS: BASOPHILS % (AUTO) 1.2 % (0.0-2.0); EOSINOPHILS % (AUTO) 6.7 % (0.0-3.0); HEMATOCRIT 35.8 % (42.0-52.0); HEMOGLOBIN 10.6 G/DL (14.2-18.0); LYMPHOCYTES % (AUTO) 15.1 % (20.0-45.0); MEAN CORPUSCULAR VOLUME 82 FL (80-99); MONOCYTES % (AUTO) 9.1 % (1.0-10.0); NEUTROPHILS % (AUTO) 67.9 % (45.0-75.0); PLATELET COUNT 502 K/UL (150-450); RED BLOOD COUNT 4.34 M/UL (4.70-6.10); RED CELL DISTRIBUTION WIDTH 16.7 % (11.6-14.8); WHITE BLOOD COUNT 15.8 K/UL (4.8-10.8)
--- NOTE | 2019-10-02 08:44 | NUR ---
HAND-OFF: Report given to TAMICA [place]. Pt remains stable.
[2019-10-02 08:52] LABS: ANION GAP 12 mmol/L (5-15); BLOOD UREA NITROGEN 57 mg/dL (7-18); CALCIUM 9.8 MG/DL (8.5-10.1); CARBON DIOXIDE 27 MMOL/L (21-32); CHLORIDE 94 MMOL/L (98-107); CREATININE 3.6 MG/DL (0.55-1.30); POTASSIUM 4.2 MMOL/L (3.5-5.1); SODIUM 133 MMOL/L (136-145)
--- NOTE | 2019-10-02 09:00 | NUR ---
NURSE NOTES: Recvd pt from Min RN, pt is sleeping in bed. Pt has Portex 8 with AC 18 TV 550 FiO2 24% PEEP 5 with no sign of SOB or resp distress. Pt has rectal tube in place and draining. Ab appears distended and round. Gt running Osmolite 1.2 @ 60/hr. Bed in lowest locked position, call light within reach, will continue with plan of care
[2019-10-02] MEDS: Lactobacillus-GG tablet GT SCH ×2 (09:43→18:00)
[2019-10-02] MEDS: Minoxidil 2.5mg tab GT SCH (09:43)
[2019-10-02] MEDS: Miralax 17gm pkt GT SCH (09:43)
[2019-10-02] MEDS: Metoprolol Tartrate 100mg tab GT SCH ×2 (09:43→20:13)
[2019-10-02] MEDS: Zinc Oxide Oint 2oz TOPIC SCH ×2 (09:44→18:46)
[2019-10-02] MEDS: Colistin for inhalation INH SCH (10:58)
--- NOTE | 2019-10-02 11:49 | Infectious Diseases Prog Note ---
"Assessment/Plan Assessment/Plan antibiotics : cefepime, inhaled colistin A 1. acenitobacter | proteus pneumonia 2. respiratory failure 3. leucocytosis 4. COVID 19 test negative x 2 5. renal failure on HD P 1. d/c inhaled colistin 2. start unasyn 3. continue cefepime 4. will follow up cultures Subjective ROS Limited/Unobtainable: Yes Allergies: Coded Allergies: No Known Allergies (Unverified , 06/10/19) Objective Last 24 Hour Vital Signs Date Time Temp Pulse Resp B/P (MAP) Pulse Ox O2 Delivery O2 Flow Rate FiO2 10/02/19 10:59 69 12 100 Mechanical Ventilator 24 70 12 24 10/02/19 09:43 77 137/61 10/02/19 09:43 137/61 10/02/19 09:12 68 12 24 10/02/19 08:02 24 10/02/19 08:00 Mechanical Ventilator 10/02/19 07:54 98.4 77 13 137/61 (86) 99 10/02/19 07:30 73 12 24 10/02/19 04:00 24 10/02/19 04:00 Mechanical Ventilator 10/02/19 04:00 98.4 86 13 160/79 (106) 94 10/02/19 04:00 85 10/02/19 03:01 85 13 24 10/02/19 00:00 89 10/02/19 00:00 98.4 92 14 103/65 (78) 97 10/02/19 00:00 24 10/02/19 00:00 Mechanical Ventilator 10/01/19 23:13 87 14 100 Mechanical Ventilator 24 84 12 24 10/01/19 20:00 24 10/01/19 20:00 Mechanical Ventilator 10/01/19 20:00 98.1 94 20 91/52 (65) 97 10/01/19 19:35 94 18 24 10/01/19 16:34 97 20 24 10/01/19 16:00 97.2 100 18 123/60 (81) 96 10/01/19 16:00 24 10/01/19 16:00 Mechanical Ventilator 10/01/19 16:00 99 10/01/19 14:47 100 22 24 10/01/19 12:40 91 22 24 10/01/19 12:27 Mechanical Ventilator 10/01/19 12:02 84 10/01/19 12:00 97.0 86 20 130/62 (84) 97 10/01/19 12:00 24 Height (Feet): 5 Height (Inches): 10.00 Weight (Pounds): 139 HEENT: status post trach Respiratory/Chest: lungs clear Cardiovascular: normal rate, regular rhythm, no gallop/murmur Abdomen: soft, non tender, other - Gt Extremities: no edema, other - right subclavian Laboratory Tests Test 10/01/19 16:30 10/01/19 18:15 10/02/19 00:08 10/02/19 07:04 White Blood Count 14.4 K/UL (4.8-10.8) H Red Blood Count 4.16 M/UL (4.70-6.10) L Hemoglobin 10.6 G/DL (14.2-18.0) L Hematocrit 34.1 % (42.0-52.0) L Mean Corpuscular Volume 82 FL (80-99) Mean Corpuscular Hemoglobin 25.4 PG (27.0-31.0) L Mean Corpuscular Hemoglobin Concent 31.1 G/DL (32.0-36.0) L Red Cell Distribution Width 17.2 % (11.6-14.8) H Platelet Count 469 K/UL (150-450) H Mean Platelet Volume 6.0 FL (6.5-10.1) L Neutrophils (%) (Auto) 78.8 % (45.0-75.0) H Lymphocytes (%) (Auto) 10.5 % (20.0-45.0) L Monocytes (%) (Auto) 6.7 % (1.0-10.0) Eosinophils (%) (Auto) 3.1 % (0.0-3.0) H Basophils (%) (Auto) 0.9 % (0.0-2.0) Sodium Level 124 MMOL/L (136-145) L Potassium Level 3.7 MMOL/L (3.5-5.1) Chloride Level 93 MMOL/L (98-107) L Carbon Dioxide Level 28 MMOL/L (21-32) Anion Gap 3 mmol/L (5-15) L Blood Urea Nitrogen 44 mg/dL (7-18) H Creatinine 3.0 MG/DL (0.55-1.30) H Estimat Glomerular Filtration Rate 20.3 mL/min (>60) Glucose Level 223 MG/DL (74-106) H Calcium Level 9.1 MG/DL (8.5-10.1) POC Whole Blood Glucose 241 MG/DL (74-106) H Pending Pending Test 10/02/19 08:05 White Blood Count 15.8 K/UL (4.8-10.8) H Red Blood Count 4.34 M/UL (4.70-6.10) L Hemoglobin 10.6 G/DL (14.2-18.0) L Hematocrit 35.8 % (42.0-52.0) L Mean Corpuscular Volume 82 FL (80-99) Mean Corpuscular Hemoglobin 24.5 PG (27.0-31.0) L Mean Corpuscular Hemoglobin Concent 29.7 G/DL (32.0-36.0) L Red Cell Distribution Width 16.7 % (11.6-14.8) H Platelet Count 502 K/UL (150-450) H Mean Platelet Volume 5.8 FL (6.5-10.1) L Neutrophils (%) (Auto) 67.9 % (45.0-75.0) Lymphocytes (%) (Auto) 15.1 % (20.0-45.0) L Monocytes (%) (Auto) 9.1 % (1.0-10.0) Eosinophils (%) (Auto) 6.7 % (0.0-3.0) H Basophils (%) (Auto) 1.2 % (0.0-2.0) Sodium Level 133 MMOL/L (136-145) L Potassium Level 4.2 MMOL/L (3.5-5.1) Chloride Level 94 MMOL/L (98-107) L Carbon Dioxide Level 27 MMOL/L (21-32) Anion Gap 12 mmol/L (5-15) Blood Urea Nitrogen 57 mg/dL (7-18) H Creatinine 3.6 MG/DL (0.55-1.30) H Estimat Glomerular Filtration Rate 16.5 mL/min (>60) Glucose Level 150 MG/DL (74-106) H Calcium Level 9.8 MG/DL (8.5-10.1) Current Medications Medications (Trade) Dose Ordered Sig/Leonel Route PRN Reason Start Time Stop Time Status Last Admin Dose Admin Acetaminophen (Tylenol) 650 mg Q4H PRN GT Mild Pain (Pain Scale 1-3) 09/21/19 12:45 10/21/19 12:44 09/30/19 05:22 Atorvastatin Calcium (Lipitor) 40 mg BEDTIME GT 08/09/19 21:00 11/07/19 20:59 10/01/19 20:33 Cefepime HCl 1 gm/ Dextrose 55 ml @ 110 mls/hr ONCE IVPB 10/01/19 12:00 10/08/19 13:00 10/01/19 12:45 Cefepime HCl 500 mg/Dextrose 55 ml @ 110 mls/hr Q24H IVPB 10/02/19 12:00 10/09/19 11:59 Chlorhexidine Gluconate (Felipa-Hex 2%) 1 applic DAILY@1999 TOPIC 09/12/19 20:00 12/11/19 19:59 10/01/19 20:33 Clonidine HCl (Catapres Tab) 0.1 mg Q4H PRN GT For High Blood Pressure 09/09/19 12:30 12/08/19 05:29 09/15/19 04:10 Colistimethate Sodium (Colistin *inhalation use only*) 75 mg Q12HR@ INH 09/27/19 22:00 10/04/19 21:59 10/02/19 10:58 Dextrose (Dextrose 50%) 25 ml Q30M PRN IV Hypoglycemia 08/09/19 07:30 11/07/19 07:29 Dextrose (Dextrose 50%) 50 ml Q30M PRN IV Hypoglycemia 08/09/19 07:30 11/07/19 07:29 Diphenoxylate HCl/ Atropine (Lomotil) 2.5 mg QID PRN ORAL Diarrhea 09/24/19 08:45 10/24/19 08:44 Epoetin Andreas (Epoetin Andreas(ESRD on dialysis)) 10,000 unit WED-WED-WED SUBQ 09/20/19 21:00 12/19/19 20:59 09/29/19 21:00 Famotidine (Pepcid) 20 mg DAILY GT 08/30/19 09:00 11/28/19 08:59 10/02/19 09:44 Heparin Sodium (Porcine) (Heparin) 1,000 unit POSTHD INJ 09/30/19 14:15 11/14/19 14:14 Heparin Sodium (Porcine) (Heparin) 1,000 unit POSTHD INJ 10/01/19 16:15 11/15/19 16:14 Insulin Aspart (NovoLOG) Q6HR SUBQ 09/25/19 18:00 11/07/19 11:29 10/02/19 00:13 Lactobacillus Acidophilus (Culturelle) 1 tab TWICE A DAY GT 09/14/19 18:00 12/13/19 17:59 10/02/19 09:43 Metoprolol Tartrate (Lopressor) 200 mg Q12HR GT 08/09/19 09:00 11/07/19 08:59 10/02/19 09:43 Minoxidil (Loniten) 5 mg DAILY GT 08/09/19 09:00 11/07/19 08:59 10/02/19 09:43 Polyethylene Glycol (Miralax) 17 gm DAILY GT 09/28/19 11:00 10/28/19 10:59 09/30/19 08:20 Sodium Chloride 1,000 ml @ 500 mls/hr Q2H PRN IVLG sbp<90 during hd 09/30/19 14:03 10/30/19 14:02 Sodium Chloride 1,000 ml @ 500 mls/hr Q2H PRN IVLG sbp<90 during hd 10/01/19 16:08 10/31/19 16:07 Zinc Oxide (Zinc Oxide) 1 applic BID TOPIC 08/10/19 18:00 11/08/19 17:59 10/02/19 09:44 Farnaz Lyle MD Oct 02, 2019 11:49"
[2019-10-02 12:00] VITALS: BP 126/58
--- NOTE | 2019-10-02 12:15 | Surgery Progress Note ---
Surgery Progress Note Subjective Procedure Performed Right femoral temporary hemodialysis catheter removal Additional Comments leukocytosis h/h stable exam stable no n/v Objective Last 24 Hour Vital Signs Date Time Temp Pulse Resp B/P (MAP) Pulse Ox O2 Delivery O2 Flow Rate FiO2 10/02/19 10:59 69 12 100 Mechanical Ventilator 24 70 12 24 10/02/19 09:43 77 137/61 10/02/19 09:43 137/61 10/02/19 09:12 68 12 24 10/02/19 08:02 24 10/02/19 08:00 Mechanical Ventilator 10/02/19 07:54 98.4 77 13 137/61 (86) 99 10/02/19 07:30 73 12 24 10/02/19 04:00 24 10/02/19 04:00 Mechanical Ventilator 10/02/19 04:00 98.4 86 13 160/79 (106) 94 10/02/19 04:00 85 10/02/19 03:01 85 13 24 10/02/19 00:00 89 10/02/19 00:00 98.4 92 14 103/65 (78) 97 10/02/19 00:00 24 10/02/19 00:00 Mechanical Ventilator 10/01/19 23:13 87 14 100 Mechanical Ventilator 24 84 12 24 10/01/19 20:00 24 10/01/19 20:00 Mechanical Ventilator 10/01/19 20:00 98.1 94 20 91/52 (65) 97 10/01/19 19:35 94 18 24 10/01/19 16:34 97 20 24 10/01/19 16:00 97.2 100 18 123/60 (81) 96 10/01/19 16:00 24 10/01/19 16:00 Mechanical Ventilator 10/01/19 16:00 99 10/01/19 14:47 100 22 24 10/01/19 12:40 91 22 24 10/01/19 12:27 Mechanical Ventilator I&O Intake and Output 10/01/19 10/02/19 19:00 07:00 Intake Total 115 ml 600 ml Output Total 100 ml 300 ml Balance 15 ml 300 ml IV Total 55 ml Tube Feeding 60 ml 600 ml Stool Total 100 ml 300 ml # Bowel Movements 100 Dressing: other Wound: other Cardiovascular: RSR Respiratory: decreased breath sounds Abdomen: soft, non-tender, present bowel sounds Extremities: no tenderness, no cyanosis, pulses, other Laboratory Tests Test 10/01/19 16:30 10/01/19 18:15 10/02/19 00:08 10/02/19 07:04 White Blood Count 14.4 K/UL (4.8-10.8) H Red Blood Count 4.16 M/UL (4.70-6.10) L Hemoglobin 10.6 G/DL (14.2-18.0) L Hematocrit 34.1 % (42.0-52.0) L Mean Corpuscular Volume 82 FL (80-99) Mean Corpuscular Hemoglobin 25.4 PG (27.0-31.0) L Mean Corpuscular Hemoglobin Concent 31.1 G/DL (32.0-36.0) L Red Cell Distribution Width 17.2 % (11.6-14.8) H Platelet Count 469 K/UL (150-450) H Mean Platelet Volume 6.0 FL (6.5-10.1) L Neutrophils (%) (Auto) 78.8 % (45.0-75.0) H Lymphocytes (%) (Auto) 10.5 % (20.0-45.0) L Monocytes (%) (Auto) 6.7 % (1.0-10.0) Eosinophils (%) (Auto) 3.1 % (0.0-3.0) H Basophils (%) (Auto) 0.9 % (0.0-2.0) Sodium Level 124 MMOL/L (136-145) L Potassium Level 3.7 MMOL/L (3.5-5.1) Chloride Level 93 MMOL/L (98-107) L Carbon Dioxide Level 28 MMOL/L (21-32) Anion Gap 3 mmol/L (5-15) L Blood Urea Nitrogen 44 mg/dL (7-18) H Creatinine 3.0 MG/DL (0.55-1.30) H Estimat Glomerular Filtration Rate 20.3 mL/min (>60) Glucose Level 223 MG/DL (74-106) H Calcium Level 9.1 MG/DL (8.5-10.1) POC Whole Blood Glucose 241 MG/DL (74-106) H Pending Pending Test 10/02/19 08:05 White Blood Count 15.8 K/UL (4.8-10.8) H Red Blood Count 4.34 M/UL (4.70-6.10) L Hemoglobin 10.6 G/DL (14.2-18.0) L Hematocrit 35.8 % (42.0-52.0) L Mean Corpuscular Volume 82 FL (80-99) Mean Corpuscular Hemoglobin 24.5 PG (27.0-31.0) L Mean Corpuscular Hemoglobin Concent 29.7 G/DL (32.0-36.0) L Red Cell Distribution Width 16.7 % (11.6-14.8) H Platelet Count 502 K/UL (150-450) H Mean Platelet Volume 5.8 FL (6.5-10.1) L Neutrophils (%) (Auto) 67.9 % (45.0-75.0) Lymphocytes (%) (Auto) 15.1 % (20.0-45.0) L Monocytes (%) (Auto) 9.1 % (1.0-10.0) Eosinophils (%) (Auto) 6.7 % (0.0-3.0) H Basophils (%) (Auto) 1.2 % (0.0-2.0) Sodium Level 133 MMOL/L (136-145) L Potassium Level 4.2 MMOL/L (3.5-5.1) Chloride Level 94 MMOL/L (98-107) L Carbon Dioxide Level 27 MMOL/L (21-32) Anion Gap 12 mmol/L (5-15) Blood Urea Nitrogen 57 mg/dL (7-18) H Creatinine 3.6 MG/DL (0.55-1.30) H Estimat Glomerular Filtration Rate 16.5 mL/min (>60) Glucose Level 150 MG/DL (74-106) H Calcium Level 9.8 MG/DL (8.5-10.1) Plan Problems: (1) Anemia (2) Hyponatremia (3) Leukocytosis Assessment & Plan: Tracheostomy, left chest pacemaker are again demonstrated. There is bilateral interstitial and airspace disease and bilateral pleural fluid again demonstrated. This appears more severe than on the prior study. Bilateral interstitial and airspace infiltrates versus edema. Bilateral pleural effusions Leukocytosis, anemia, tachycardia, abnormal labs. Wound evaluated and likely etiology of patient's sepsis. Leukocytosis etiology work-up antibiotics per infectious disease Appreciate nephrology input transfuse with dialysis We will follow with recommendations thank you allowing participation's care plan HD access temp HD discussed with medical teams line okay HD as per renal persistent leukocytosis flow cyto noted improving trending down right fem line removed wbc trending down (4) Ventilator dependent (5) Right lower lobe pneumonia (6) Hypokalemia (7) Hyperkalemia (8) Anasarca (9) Decubitus skin ulcer Assessment & Plan: pt presented on admission with generalized edemae.Skin assessed under tracheostomy and no areas of concerns noted. GT Insertion is marginally erythematous with small amt slough at stoma. Unstageable Pressure Injury R elbow. Base of wound is 100% yellow slough, Borders are erythematous. Wound oozing small amt haemopurulent exudate.Darker skin tone without elevation in skin temp or erythema periwound. Pt's penis and scrotum are grossly edematous and enlarged and weeping serous exudate from numerous sites both from penis and scrotum. Two small open wounds noted at base of at base of shaft of penis ,and contreras aspect of scrotum. Both wounds oozing large amt sanguineous and serosanguineous exudate. Multiple open wounds with Biofilm at base of each wounds noted to contreras/lateral,inferior and posterior aspects of scrotum. These wounds noted to be oozing moderate amts of serosanguineous exudate. Hypertrophic scar with scattered areas of hyperpigmentation noted to Sacrum. DTPI noted to L Buttocks (L)7cm x (W)9cm. Base of wound is purple and indurated.Darker skin tone without erythema, induration or fluctuance R and L ischial tuberosities. Both heels are boggy with non-blanchable erythema. Tx.Plan: Cleanse wound R elbow with Saline. Apply TheraHoney, Apply Moisture Barrier Paste periwound. Cover with Optifoam drsg.Change Daily and prn. Wash GT site with soap and water.Pat dry. Apply Zinc Oxide Paste to GT site Daily. Leave Open to Air. Apply Zinc Oxide Paste to entire Scrotum, Place ABD pads to R and L lateral, and posterior aspects of scrotum TWICE daily. Apply Cavilon Skin Barrier to malleoli and both Heels. Cover each site with Optifoam drsgs. Change every 7 days and prn. Reposition at least every 2hours or as tolerated. Off-load heels with Pillows. APM/BECCA Mattress overlay. (10) Malnutrition Assessment & Plan: DAILY ESTIMATED NEEDS: Needs based on Renal, critical care, wound/ 61kg 22-30 kcals/kg [id number] total kcals 1.25-2 g protein/kg 76-122 g total protein Fluid per MD, now on HD NUTRITION DIAGNOSIS: * Swallowing difficulty R/T respiratory failure, dysphagia as evidenced by trach/vent dep, PEG dep * Increased kcal/prot needs R/T wound healing as evidenced by admitted w/ multiple pressure injuries including full thickness wounds at junction of Shaft of penis, dorsal scrotum, R elbow, and DTPI @ L buttocks. CURRENT TF:Vital AF 1.2 @ 50ml/hr x 24 hrs + Garo BID ENTERAL NUTRITION RECOMMENDATIONS: Vital AF 1.2 @ 60ml/hr x 20 hrs to provide 1200ml, 1440kcal, 90g prot, 973ml free water * Rec 20 hr run time for GI rest. Increase TF to goal of 60ml/hr for 20 hrs to meet est needs. -> monitor lytes and renal fxn closely, monitor need for renal TF -> TF @ goal will provide 1642mg K and 2025mg Phos * HOB over 30 degrees/ water flush per MD -------- Pt continues to have loose stool, rectal tube. Trial of Osmolite 1.2 w/ goal of 60ml/hr for 20 hrs (4 hrs bowel rest) to provide 1200ml, 1440 kcal, 67g pro, 984ml free H2O, -> Rec to add prosource 1 pack daily (11g pro) to better meet est pro needs. -> Monitor BG, K closely. Pt would require increased insulin coverage as TF at goal would provide 56g more carbs per day. ------- ADDITIONAL RECOMMENDATIONS: * Per SNF: HT=63" JH=044 lbs (vs EMR wt of 166lbs) -> obtain re-calibrated bedscale wt, rec daily wt monitoring * Wound healing: con't Nephrovite + Garo BID/ Vit C dosing per Nephro * Monitor renal fxn and lytes closely w/ non-renal TF -> K low, phos wnl; rec updated mag level. * Daily wts w/ drop to 118-20 lbs, rec to recalibrate for accurate CBW * Consider adding anti-diarrheal med +rectal tube-> now on imodium (11) Uremia (12) CKD (chronic kidney disease) stage 5, GFR less than 15 ml/min (13) Colon distention Assessment & Plan: discussed with GI likely functional as having lots of loose bm rectal tube kub f/u s/p colonoscopy - findings reviewed with GI improved cont diet as tolerated Marked distention of the sigmoid colon. 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 No evidence of bowel wall thickening or pneumatosis 12 mm focus of contrast enhancement in the right pectineus muscle. While nonspecific in appearance, appearance raises concern for a possible pseudoaneurysm. Ill- defined thickening of the pectus medius muscle could indicate some intramuscular hemorrhage. The above findings were phoned to Dr. Urias at the time of interpretation Large bilateral pleural effusions Hazy pulmonary parenchymal opacities as well as dense consolidative opacities most likely represent pulmonary edema, but could represent pneumonia Evidence of anasarca elsewhere, with generalized edema of the subcutaneous fat Bladder wall thickening, raises concern for cystitis. Avalos catheter in place Colonic diverticulosis. No evidence of diverticulitis. Tracheostomy Pacemaker Gastrostomy Jonathan Urias Oct 02, 2019 12:15
--- NOTE | 2019-10-02 12:25 | Nephrology Progress Note ---
Assessment/Plan Plan MOF Established ESRD - HD now TTS. Anemia of CKD -TUYET. Had Hd. Na 133 today. Subjective Subjective Obtunded. Objective Objective Last 24 Hour Vital Signs Date Time Temp Pulse Resp B/P (MAP) Pulse Ox O2 Delivery O2 Flow Rate FiO2 10/02/19 12:00 24 10/02/19 12:00 97.7 68 12 126/58 (80) 97 10/02/19 12:00 Mechanical Ventilator 10/02/19 10:59 69 12 100 Mechanical Ventilator 24 70 12 24 10/02/19 09:43 77 137/61 10/02/19 09:43 137/61 10/02/19 09:12 68 12 24 10/02/19 08:02 24 10/02/19 08:00 Mechanical Ventilator 10/02/19 08:00 74 10/02/19 07:54 98.4 77 13 137/61 (86) 99 10/02/19 07:30 73 12 24 10/02/19 04:00 24 10/02/19 04:00 Mechanical Ventilator 10/02/19 04:00 98.4 86 13 160/79 (106) 94 10/02/19 04:00 85 10/02/19 03:01 85 13 24 10/02/19 00:00 89 10/02/19 00:00 98.4 92 14 103/65 (78) 97 10/02/19 00:00 24 10/02/19 00:00 Mechanical Ventilator 10/01/19 23:13 87 14 100 Mechanical Ventilator 24 84 12 24 10/01/19 20:00 24 10/01/19 20:00 Mechanical Ventilator 10/01/19 20:00 98.1 94 20 91/52 (65) 97 10/01/19 19:35 94 18 24 10/01/19 16:34 97 20 24 10/01/19 16:00 97.2 100 18 123/60 (81) 96 10/01/19 16:00 24 10/01/19 16:00 Mechanical Ventilator 10/01/19 16:00 99 10/01/19 14:47 100 22 24 10/01/19 12:40 91 22 24 10/01/19 12:27 Mechanical Ventilator Intake and Output 10/01/19 10/02/19 19:00 07:00 Intake Total 115 ml 600 ml Output Total 100 ml 300 ml Balance 15 ml 300 ml IV Total 55 ml Tube Feeding 60 ml 600 ml Stool Total 100 ml 300 ml # Bowel Movements 100 Laboratory Tests 10/01/19 16:30: White Blood Count 14.4H, Red Blood Count 4.16L, Hemoglobin 10.6L, Hematocrit 34.1L, Mean Corpuscular Volume 82, Mean Corpuscular Hemoglobin 25.4L, Mean Corpuscular Hemoglobin Concent 31.1L, Red Cell Distribution Width 17.2H, Platelet Count 469H, Mean Platelet Volume 6.0L, Neutrophils (%) (Auto) 78.8H, Lymphocytes (%) (Auto) 10.5L, Monocytes (%) (Auto) 6.7, Eosinophils (%) (Auto) 3.1H, Basophils (%) (Auto) 0.9, Sodium Level 124L, Potassium Level 3.7, Chloride Level 93L, Carbon Dioxide Level 28, Anion Gap 3L, Blood Urea Nitrogen 44H, Creatinine 3.0H, Estimat Glomerular Filtration Rate 20.3, Glucose Level 223H, Calcium Level 9.1 10/01/19 18:15: POC Whole Blood Glucose 241H 10/02/19 00:08: POC Whole Blood Glucose [Pending] 10/02/19 07:04: POC Whole Blood Glucose [Pending] 10/02/19 08:05: White Blood Count 15.8H, Red Blood Count 4.34L, Hemoglobin 10.6L, Hematocrit 35.8L, Mean Corpuscular Volume 82, Mean Corpuscular Hemoglobin 24.5L, Mean Corpuscular Hemoglobin Concent 29.7L, Red Cell Distribution Width 16.7H, Platelet Count 502H, Mean Platelet Volume 5.8L, Neutrophils (%) (Auto) 67.9, Lymphocytes (%) (Auto) 15.1L, Monocytes (%) (Auto) 9.1, Eosinophils (%) (Auto) 6.7H, Basophils (%) (Auto) 1.2, Sodium Level 133L, Potassium Level 4.2, Chloride Level 94L, Carbon Dioxide Level 27, Anion Gap 12, Blood Urea Nitrogen 57H, Creatinine 3.6H, Estimat Glomerular Filtration Rate 16.5, Glucose Level 150H, Calcium Level 9.8 Height (Feet): 5 Height (Inches): 10.00 Weight (Pounds): 139 Objective CV RR Trach clean Lungs CTA New Perma Cath RIJ. Abd SNT. BS + E No CCE Erica Pichardo MD Oct 02, 2019 12:25
--- NOTE | 2019-10-02 12:35 | NUR ---
NURSE NOTES: Called [facility] nephrology to confirm HD scheduled for 10/02. Spoke to Sia, she states they call back to confirm.
[2019-10-02] MEDS: Cefepime HCl 500 MG in D5W 55 ML IVPB SCH (13:03)
[2019-10-02] MEDS: Ampicillin/Sulbactam Sod 3 GM in NS 110 ML IVPB SCH (14:25)
[2019-10-02 16:00] VITALS: BP 141/69
--- NOTE | 2019-10-02 19:24 | NUR ---
NURSE NOTES: Nurse Phan confirmed she will be here for HD sched for tomorrow
--- NOTE | 2019-10-02 19:25 | NUR ---
"NURSE NOTES: Received report from TAMICA [place]. Pt. obtunded, unable to make needs known. PERRLA. Contracted and resistive to care. Pt. 5-lead EKG v-pacing. Vent settings: A/C 18 | Vt 550 | FiO2 24% | P5 as ordered. Saturating 100%. No cardiac or respiratory distress noted. G-tube site intact with 10cc residual running Osmolite 1.2 @ 60 cc. Abdomen is round and distended. Initiate left/right as tolerated. Rectal tube in place and draining. Per report 100 cc output during prev shift. Made aware of HD tomorrow via [facility] as ordered by Daryl. WBC appears to be fluctuating at 15.1 as of today. Bed placed in lowest and locked position. Will continue monitoring."
[2019-10-02 20:00] VITALS: BP 135/67
[2019-10-02] MEDS: Epoetin Alfa-EPBX(ESRD on dialysis)10,000 unit/ml vial SUBQ SCH (20:12)
[2019-10-02] MEDS: Dyna-Hex 2% Top Sol 2oz TOPIC SCH (20:12)
[2019-10-02] MEDS: Atorvastatin 20mg tab GT SCH (20:12)
--- NOTE | 2019-10-02 21:32 | General Progress Note ---
Assessment/Plan Assessment/Plan: Assessment - abdominal distention, due to colonic dysmotility, - colonoscopy negative to hepatic flexure - diarrhea - presumed TF related - abnormal LFT - Anemia - leukocytosis - stool OB (+) - EGD --> gastritis - Renal failure - Anasarca - resp failure, trach - dysphagia, GT - encephalopathy, contracted - poor px Recommendations - continue TF - rectal tube - unable to push antidiarrheals due to colonic dysmotility - roll side to side as feasible (hard due to severe contractions) - Elevate HOB - f/u labs - PPI - abx - supportive care Subjective Allergies: Coded Allergies: No Known Allergies (Unverified , 06/10/19) Subjective above noted tolerating feeds liquid stool 300 - 700 cc/d Objective Last 24 Hour Vital Signs Date Time Temp Pulse Resp B/P (MAP) Pulse Ox O2 Delivery O2 Flow Rate FiO2 10/02/19 20:43 68 14 Mechanical Ventilator 24 10/02/19 20:13 75 135/67 10/02/19 20:00 24 10/02/19 20:00 Mechanical Ventilator 10/02/19 20:00 98.6 78 13 135/67 (89) 100 10/02/19 20:00 76 10/02/19 18:55 76 17 Mechanical Ventilator 10/02/19 17:04 76 16 Mechanical Ventilator 10/02/19 16:00 24 10/02/19 16:00 75 10/02/19 16:00 Mechanical Ventilator 10/02/19 16:00 98.2 76 12 141/69 (93) 100 10/02/19 15:47 81 21 Mechanical Ventilator 10/02/19 13:18 76 15 Mechanical Ventilator 10/02/19 12:00 24 10/02/19 12:00 97.7 68 12 126/58 (80) 97 10/02/19 12:00 Mechanical Ventilator 10/02/19 12:00 69 10/02/19 10:59 69 12 100 Mechanical Ventilator 24 70 12 24 10/02/19 09:43 77 137/61 10/02/19 09:43 137/61 10/02/19 09:12 68 12 24 10/02/19 08:02 24 10/02/19 08:00 Mechanical Ventilator 10/02/19 08:00 74 10/02/19 07:54 98.4 77 13 137/61 (86) 99 10/02/19 07:30 73 12 24 10/02/19 04:00 24 10/02/19 04:00 Mechanical Ventilator 10/02/19 04:00 98.4 86 13 160/79 (106) 94 10/02/19 04:00 85 10/02/19 03:01 85 13 24 10/02/19 00:00 89 10/02/19 00:00 98.4 92 14 103/65 (78) 97 10/02/19 00:00 24 10/02/19 00:00 Mechanical Ventilator 10/01/19 23:13 87 14 100 Mechanical Ventilator 24 84 12 24 Intake and Output 10/01/19 10/02/19 19:00 07:00 Intake Total 115 ml 660 ml Output Total 100 ml 300 ml Balance 15 ml 360 ml IV Total 55 ml Tube Feeding 60 ml 660 ml Stool Total 100 ml 300 ml # Bowel Movements 100 Laboratory Tests 10/02/19 00:08: POC Whole Blood Glucose [Pending] 10/02/19 07:04: POC Whole Blood Glucose [Pending] 10/02/19 08:05: White Blood Count 15.8H, Red Blood Count 4.34L, Hemoglobin 10.6L, Hematocrit 35.8L, Mean Corpuscular Volume 82, Mean Corpuscular Hemoglobin 24.5L, Mean Corpuscular Hemoglobin Concent 29.7L, Red Cell Distribution Width 16.7H, Platelet Count 502H, Mean Platelet Volume 5.8L, Neutrophils (%) (Auto) 67.9, Lymphocytes (%) (Auto) 15.1L, Monocytes (%) (Auto) 9.1, Eosinophils (%) (Auto) 6.7H, Basophils (%) (Auto) 1.2, Sodium Level 133L, Potassium Level 4.2, Chloride Level 94L, Carbon Dioxide Level 27, Anion Gap 12, Blood Urea Nitrogen 57H, Creatinine 3.6H, Estimat Glomerular Filtration Rate 16.5, Glucose Level 150H, Calcium Level 9.8 10/02/19 13:01: POC Whole Blood Glucose [Pending] 10/02/19 18:42: POC Whole Blood Glucose 181H Height (Feet): 5 Height (Inches): 10.00 Weight (Pounds): 139 Objective Debilitated AA man NCAT (+) trach coarse BS RR abd less distended, anasarca, (+) GT, (+) rectal tube ext (+) edema contracted Ronny Mustafa MD Oct 02, 2019 21:32
[2019-10-03] VITALS: BP 127/58
[2019-10-03] MEDS: NovoLOG Insulin Flexpen SUBQ SCH ×5 (00:21→23:20)
[2019-10-03 04:00] VITALS: BP 157/64
[2019-10-03 05:48] LABS: BASOPHILS % (AUTO) 1.2 % (0.0-2.0); EOSINOPHILS % (AUTO) 11.2 % (0.0-3.0); HEMATOCRIT 30.1 % (42.0-52.0); HEMOGLOBIN 9.2 G/DL (14.2-18.0); LYMPHOCYTES % (AUTO) 15.4 % (20.0-45.0); MEAN CORPUSCULAR VOLUME 81 FL (80-99); MONOCYTES % (AUTO) 8.3 % (1.0-10.0); PLATELET COUNT 459 K/UL (150-450); RED BLOOD COUNT 3.72 M/UL (4.70-6.10); RED CELL DISTRIBUTION WIDTH 16.6 % (11.6-14.8); WHITE BLOOD COUNT 16.7 K/UL (4.8-10.8)
[2019-10-03 06:13] LABS: ANION GAP 11 mmol/L (5-15); BLOOD UREA NITROGEN 74 mg/dL (7-18); CALCIUM 8.9 MG/DL (8.5-10.1); CARBON DIOXIDE 27 MMOL/L (21-32); CHLORIDE 95 MMOL/L (98-107); CREATININE 4.3 MG/DL (0.55-1.30); POTASSIUM 4.2 MMOL/L (3.5-5.1); SODIUM 133 MMOL/L (136-145)
--- NOTE | 2019-10-03 07:08 | NUR ---
NURSE HAND-OFF REPORT: Important Events on Shift: H&H trending up Patient Status: stable Diet: Osmolite x 20 hrs Pending Orders: N Pending Results/Labs: N Pending MD notification: N Latest Vital Signs: Temperature 97.9 , Pulse 77 , B/P 157 /64 , Respiratory Rate 15 , O2 SAT 100 , Mechanical Ventilator, O2 Flow Rate 15.0 . Vital Sign Comment: EKG Rhythm: Sinus Rhythm with BBB Rhythm change?: N MD Notified?: N - MD Response: Latest Delacruz Fall Score: 70 Fall Risk: High Risk Safety Measures: Call light Within Reach, Bed Alarm Zone 1, Side Rails Side Rails x3, Bed position Low and Locked. Fall Precautions: Yellow Socks Report given to TAMICA Ruiz.
--- NOTE | 2019-10-03 07:09 | NUR ---
NURSE NOTES: Received patient in bed. Vent dependent. No respiratory distress. Patient is for dialysis today. Contact isolation observed. Will continue plan of care.
--- NOTE | 2019-10-03 07:21 | Hematology/Onc Progress Note ---
Assessment/Plan Assessment/Plan Assessment/recs # Leukocytosis - with multiple infections, VRE UTI, flow is negative --> wbc trend 33-->28-->25->23->22->23->24->17.3-->17-->14->16-->15.6-->14-->14- >13->19->18->17->22->22->19->17-->18->20-->15-->14->16-->14-->17 --> on abx, linezolid and zosyn--> zosyn-->gent-->off --> + blood cultures with coag neg staph likely contaminated --> as per id recs --> has ordered a flow cytometry (with pathology) --> does show increased nK cell activity --> JOURDAN 2 and bcr-abl labs ordered (these are send outs) --> plt 585-->613-->649-->669->663-->529-->506 # Anemia due to chronic disease/kidney disease as well, gi bleed + occult + noted --> was on iron in the past, now on hold --> has been started on Epogen sq --> as per renal care --> egd done and shows gastritis --> on ppi --> egd showed gastritis, colo recently done --> hgb 9-->8.7-->7.6-->9.2-->8.9-->9.2->9.3-->8.8->9.9-->9.2-->8.1-->8.7-->7.9- ->8.6-->8.9-->8.2->9-->9.3->8.9-->9.5-->10.6->9.2 # Respiratory failure --> per pulm, s/p trach --> COVID 19 test negative x 2 # Hyperlipidemia --> statin po # Dysphagia s/p gtube with nepro --> per gi # ESRD with r fem julito --> hd as per renal # Dvt ppx scds Appreciate consultation and matt Rn Subjective HEENT: Denies: no symptoms, eye pain, blurred vision, tearing, double vision, ear pain, ear discharge, nose pain, nose congestion, throat pain, throat swelling, mouth pain, mouth swelling, other Cardiovascular: Denies: no symptoms, chest pain, edema, irregular heart rate, lightheadedness, palpitations, syncope, other Respiratory: Denies: no symptoms, cough, shortness of breath, SOB with excertion, SOB at rest, sputum, wheezing, other Gastrointestinal/Abdominal: Denies: no symptoms, abdomen distended, abdominal pain, black stools, tarry stools, blood in stool, constipated, diarrhea, difficulty swallowing, nausea, poor appetite, poor fluid intake, rectal bleeding , vomiting, other Genitourinary: Denies: no symptoms, burning, discharge, frequency, flank pain, hematuria, incontinence, pain, urgency, other Neurologic/Psychiatric: Denies: no symptoms, anxiety, depressed, emotional problems, headache, numbness, paresthesia, pre-existing deficit, seizure, tingling, tremors, weakness, other Hematologic/Lymphatic: Denies: no symptoms, anemia, easy bleeding, easy bruising, adenopathy, other Allergies: Coded Allergies: No Known Allergies (Unverified , 06/10/19) Subjective 08/15 meds noted, no bleeding, hgb 8.8, wbc 28, path flow pending 08/16 flow pending dw pathologist, results pending, wbc 25, hgb 9 08/17 labs reviewed, meds reviewed, meds noted, no night sweats 08/19 remains obtunded, on vent/trach, no bleeding wbc 21.7 08/20 labs have been reviewed, no bleeding, wbc still elev, path reviewed 08/21 labs are noted, no bleeding, on vent, wbc better 08/22 labs noted, no bleeding, meds reviewed, wbc 24 hgb 7.6 08/23 vent, off abx, c diff negative, h/h stable 08/24 labs reviewed, on abx, wbc 17, hgb 8.9, no hemolysis 08/26 reviewed flow and is negative for leukemia, matt rn 08/27 meds reviewed, no night sweats, matt rn, no major bleeding 08/28 meds reivewed, labs noted 08/29 wbc is stable, approx 15, hgb 8.8, no hemolysis 08/30 labs are noted, is for colo today, hgb 9.9 08/31 right fem julito in place, unchanged, hgb 9.2, gi aware 09/01 labs noted, hgb 8.8, plt >600, no bleeding 09/02 labs noted, no bleeding, with elev wbc still, no new changes 09/03 meds are noted, no bleeding, labs reviewed hgb 8.6 09/04 no major events, hd as per renal, abx, no bleeding hgb low 09/05 labs are noted, no bleeding, meds have been reviewed 09/06 no new labs no hemolysis, cbc is noted, no bleeding 09/07 meds reviewed, no bleeding, matt rn, permacath functioning well 09/09 meds reviewed, wbc still elevated, as per id recs, cbc noted 09/10 is obtunded, with gutbe in place, labs reviewed 09/11 obtunded, as per id, observe now off abx, labs noted, wbc 19 09/12 cbc is pending, remains on epogen, also off abx 09/13 labs reviewed, no bleeding, elev wbc, no night sweats 09/14 meds noted, no bleeding, wbc 19, hgb 9.5, no night sweats 09/21 obtunded, remains on vent, labs noted, no bleeding, hgb 8.9 09/22 obtunded, labs noted, no bleeding, on vent, unchanged 09/23 unchanges, wbc remains elevated 20k, on abx, on vent 09/24 labs have been reviewed, no bleeding, wbc 15, may need abx 09/25 formula gtube changed, labs noted, remains obtunded, hgb 9.3 09/26 labs have been reviewed, no bleeding, matt rn, no night sweats 09/27 meds reviewed, no bleeding, wbc 14, on abx, remains obtunded 09/28 remains obtunded, no bleeding, wbc better, hgb 8.9, no hemolysis, plt 506 09/30 on colisitn, wbc elevated, cefepime added per id, hgb stable 10/01 labs reviewed, no bleeding, matt rn, no major events noted, wbc 14, hgb 10.6 10/02 labs have been noted, hgb 9.2, wbc 17, on abx, dw rn Objective Objective Current Medications Medications (Trade) Dose Ordered Sig/Leonel Route PRN Reason Start Time Stop Time Status Last Admin Dose Admin Acetaminophen (Tylenol) 650 mg Q4H PRN GT Mild Pain (Pain Scale 1-3) 09/21/19 12:45 10/21/19 12:44 09/30/19 05:22 Ampicillin Sodium/ Sulbactam Sodium 3 gm/Sodium Chloride 110 ml @ 220 mls/hr Q24H IVPB 10/02/19 13:00 10/09/19 12:59 10/02/19 14:25 Atorvastatin Calcium (Lipitor) 40 mg BEDTIME GT 08/09/19 21:00 11/07/19 20:59 10/02/19 20:12 Cefepime HCl 500 mg/Dextrose 55 ml @ 110 mls/hr Q24H IVPB 10/02/19 12:00 10/09/19 11:59 10/02/19 13:03 Chlorhexidine Gluconate (Felipa-Hex 2%) 1 applic DAILY@2000 TOPIC 09/12/19 20:00 12/11/19 19:59 10/02/19 20:12 Clonidine HCl (Catapres Tab) 0.1 mg Q4H PRN GT For High Blood Pressure 09/09/19 12:30 12/08/19 05:29 09/15/19 04:10 Dextrose (Dextrose 50%) 25 ml Q30M PRN IV Hypoglycemia 08/09/19 07:30 11/07/19 07:29 Dextrose (Dextrose 50%) 50 ml Q30M PRN IV Hypoglycemia 08/09/19 07:30 11/07/19 07:29 Diphenoxylate HCl/ Atropine (Lomotil) 2.5 mg QID PRN ORAL Diarrhea 09/24/19 08:45 10/24/19 08:44 Epoetin Andreas (Epoetin Andreas(ESRD on dialysis)) 10,000 unit WED-WED-WED SUBQ 09/20/19 21:00 12/19/19 20:59 10/02/19 20:12 Famotidine (Pepcid) 20 mg DAILY GT 08/30/19 09:00 11/28/19 08:59 10/02/19 09:44 Heparin Sodium (Porcine) (Heparin Sod 1000 units/ml 10ml) 2,000 unit ONCE PRN IV dialysis 10/03/19 09:00 10/03/19 23:59 Heparin Sodium (Porcine) (Heparin) 1,000 unit POSTHD INJ 10/03/19 09:00 10/03/19 23:59 Insulin Aspart (NovoLOG) Q6HR SUBQ 09/25/19 18:00 11/07/19 11:29 10/03/19 00:21 Lactobacillus Acidophilus (Culturelle) 1 tab TWICE A DAY GT 09/14/19 18:00 12/13/19 17:59 10/02/19 18:00 Metoprolol Tartrate (Lopressor) 200 mg Q12HR GT 08/09/19 09:00 11/07/19 08:59 10/02/19 20:13 Minoxidil (Loniten) 5 mg DAILY GT 08/09/19 09:00 11/07/19 08:59 10/02/19 09:43 Polyethylene Glycol (Miralax) 17 gm DAILY GT 09/28/19 11:00 10/28/19 10:59 09/30/19 08:20 Sodium Chloride 1,000 ml @ 500 mls/hr Q2H PRN IVLG sbp<90 during hd 10/03/19 09:00 10/03/19 23:59 Zinc Oxide (Zinc Oxide) 1 applic BID TOPIC 08/10/19 18:00 11/08/19 17:59 10/02/19 18:46 Last 24 Hour Vital Signs Date Time Temp Pulse Resp B/P (MAP) Pulse Ox O2 Delivery O2 Flow Rate FiO2 10/03/19 04:54 77 15 24 10/03/19 04:00 Mechanical Ventilator 10/03/19 04:00 97.9 78 18 157/64 (95) 100 10/03/19 04:00 24 10/03/19 03:35 74 10/03/19 02:44 73 13 Mechanical Ventilator 24 10/03/19 00:43 71 17 Mechanical Ventilator 24 10/03/19 00:00 98.2 71 15 127/58 (81) 100 10/03/19 00:00 24 10/03/19 00:00 Mechanical Ventilator 10/02/19 23:33 70 10/02/19 22:38 69 13 Mechanical Ventilator 24 10/02/19 20:43 68 14 Mechanical Ventilator 24 10/02/19 20:13 75 135/67 10/02/19 20:00 24 10/02/19 20:00 Mechanical Ventilator 10/02/19 20:00 98.6 78 13 135/67 (89) 100 10/02/19 20:00 76 10/02/19 18:55 76 17 Mechanical Ventilator 24 10/02/19 17:04 76 16 Mechanical Ventilator 24 10/02/19 16:00 24 10/02/19 16:00 75 10/02/19 16:00 Mechanical Ventilator 10/02/19 16:00 98.2 76 12 141/69 (93) 100 10/02/19 15:47 81 21 Mechanical Ventilator 10/02/19 13:18 76 15 Mechanical Ventilator 24 10/02/19 12:00 24 10/02/19 12:00 97.7 68 12 126/58 (80) 97 10/02/19 12:00 Mechanical Ventilator 10/02/19 12:00 69 10/02/19 10:59 69 12 100 Mechanical Ventilator 24 70 12 24 10/02/19 09:43 77 137/61 10/02/19 09:43 137/61 10/02/19 09:12 68 12 24 10/02/19 08:02 24 10/02/19 08:00 Mechanical Ventilator 10/02/19 08:00 74 10/02/19 07:54 98.4 77 13 137/61 (86) 99 10/02/19 07:30 73 12 24 10/02/19 04:00 24 10/02/19 04:00 Mechanical Ventilator 10/02/19 04:00 98.4 86 13 160/79 (106) 94 10/02/19 04:00 85 10/02/19 03:01 85 13 24 10/02/19 00:00 89 10/02/19 00:00 98.4 92 14 103/65 (78) 97 10/02/19 00:00 24 10/02/19 00:00 Mechanical Ventilator 10/01/19 23:13 87 14 100 Mechanical Ventilator 24 84 12 24 10/01/19 20:00 24 10/01/19 20:00 Mechanical Ventilator 10/01/19 20:00 98.1 94 20 91/52 (65) 97 10/01/19 19:35 94 18 24 10/01/19 16:34 97 20 24 10/01/19 16:00 97.2 100 18 123/60 (81) 96 10/01/19 16:00 24 10/01/19 16:00 Mechanical Ventilator 10/01/19 16:00 99 10/01/19 14:47 100 22 24 10/01/19 12:40 91 22 24 10/01/19 12:27 Mechanical Ventilator 10/01/19 12:02 84 10/01/19 12:00 97.0 86 20 130/62 (84) 97 10/01/19 12:00 24 10/01/19 10:45 84 17 24 10/01/19 08:52 82 12 100 Mechanical Ventilator 24 81 19 24 10/01/19 08:04 79 10/01/19 08:00 97.3 79 18 109/48 (68) 97 10/01/19 08:00 Mechanical Ventilator 10/01/19 08:00 24 Intake and Output 10/02/19 10/03/19 19:00 07:00 Intake Total 740 ml 640 ml Balance 740 ml 640 ml Free Water 20 ml 40 ml Tube Feeding 720 ml 600 ml Labs Test 09/30/19 12:01 09/30/19 17:05 09/30/19 23:27 10/01/19 05:25 POC Whole Blood Glucose 120 MG/DL (74-106) Test 10/01/19 06:10 10/01/19 16:30 10/01/19 18:15 10/02/19 00:08 White Blood Count 15.3 K/UL (4.8-10.8) 14.4 K/UL (4.8-10.8) Red Blood Count 3.78 M/UL (4.70-6.10) 4.16 M/UL (4.70-6.10) Hemoglobin 9.5 G/DL (14.2-18.0) 10.6 G/DL (14.2-18.0) Hematocrit 31.2 % (42.0-52.0) 34.1 % (42.0-52.0) Mean Corpuscular Volume 82 FL (80-99) 82 FL (80-99) Mean Corpuscular Hemoglobin 25.3 PG (27.0-31.0) 25.4 PG (27.0-31.0) Mean Corpuscular Hemoglobin Concent 30.6 G/DL (32.0-36.0) 31.1 G/DL (32.0-36.0) Red Cell Distribution Width 16.7 % (11.6-14.8) 17.2 % (11.6-14.8) Platelet Count 494 K/UL (150-450) 469 K/UL (150-450) Mean Platelet Volume 5.6 FL (6.5-10.1) 6.0 FL (6.5-10.1) Neutrophils (%) (Auto) 63.1 % (45.0-75.0) 78.8 % (45.0-75.0) Lymphocytes (%) (Auto) 18.6 % (20.0-45.0) 10.5 % (20.0-45.0) Monocytes (%) (Auto) 6.8 % (1.0-10.0) 6.7 % (1.0-10.0) Eosinophils (%) (Auto) 10.5 % (0.0-3.0) 3.1 % (0.0-3.0) Basophils (%) (Auto) 1.0 % (0.0-2.0) 0.9 % (0.0-2.0) Sodium Level 128 MMOL/L (136-145) 124 MMOL/L (136-145) Potassium Level 4.1 MMOL/L (3.5-5.1) 3.7 MMOL/L (3.5-5.1) Chloride Level 91 MMOL/L (98-107) 93 MMOL/L (98-107) Carbon Dioxide Level 25 MMOL/L (21-32) 28 MMOL/L (21-32) Anion Gap 12 mmol/L (5-15) 3 mmol/L (5-15) Blood Urea Nitrogen 87 mg/dL (7-18) 44 mg/dL (7-18) Creatinine 4.5 MG/DL (0.55-1.30) 3.0 MG/DL (0.55-1.30) Estimat Glomerular Filtration Rate 12.7 mL/min (>60) 20.3 mL/min (>60) Glucose Level 172 MG/DL (74-106) 223 MG/DL (74-106) Calcium Level 8.9 MG/DL (8.5-10.1) 9.1 MG/DL (8.5-10.1) Phosphorus Level 5.0 MG/DL (2.5-4.9) Magnesium Level 2.4 MG/DL (1.8-2.4) POC Whole Blood Glucose 241 MG/DL (74-106) Test 10/02/19 07:04 10/02/19 08:05 10/02/19 13:01 10/02/19 18:42 White Blood Count 15.8 K/UL (4.8-10.8) Red Blood Count 4.34 M/UL (4.70-6.10) Hemoglobin 10.6 G/DL (14.2-18.0) Hematocrit 35.8 % (42.0-52.0) Mean Corpuscular Volume 82 FL (80-99) Mean Corpuscular Hemoglobin 24.5 PG (27.0-31.0) Mean Corpuscular Hemoglobin Concent 29.7 G/DL (32.0-36.0) Red Cell Distribution Width 16.7 % (11.6-14.8) Platelet Count 502 K/UL (150-450) Mean Platelet Volume 5.8 FL (6.5-10.1) Neutrophils (%) (Auto) 67.9 % (45.0-75.0) Lymphocytes (%) (Auto) 15.1 % (20.0-45.0) Monocytes (%) (Auto) 9.1 % (1.0-10.0) Eosinophils (%) (Auto) 6.7 % (0.0-3.0) Basophils (%) (Auto) 1.2 % (0.0-2.0) Sodium Level 133 MMOL/L (136-145) Potassium Level 4.2 MMOL/L (3.5-5.1) Chloride Level 94 MMOL/L (98-107) Carbon Dioxide Level 27 MMOL/L (21-32) Anion Gap 12 mmol/L (5-15) Blood Urea Nitrogen 57 mg/dL (7-18) Creatinine 3.6 MG/DL (0.55-1.30) Estimat Glomerular Filtration Rate 16.5 mL/min (>60) Glucose Level 150 MG/DL (74-106) Calcium Level 9.8 MG/DL (8.5-10.1) POC Whole Blood Glucose 181 MG/DL (74-106) Test 10/03/19 00:18 10/03/19 04:40 10/03/19 05:27 POC Whole Blood Glucose 195 MG/DL (74-106) 105 MG/DL (74-106) White Blood Count 16.7 K/UL (4.8-10.8) Red Blood Count 3.72 M/UL (4.70-6.10) Hemoglobin 9.2 G/DL (14.2-18.0) Hematocrit 30.1 % (42.0-52.0) Mean Corpuscular Volume 81 FL (80-99) Mean Corpuscular Hemoglobin 24.7 PG (27.0-31.0) Mean Corpuscular Hemoglobin Concent 30.5 G/DL (32.0-36.0) Red Cell Distribution Width 16.6 % (11.6-14.8) Platelet Count 459 K/UL (150-450) Mean Platelet Volume 5.7 FL (6.5-10.1) Neutrophils (%) (Auto) 64.0 % (45.0-75.0) Lymphocytes (%) (Auto) 15.4 % (20.0-45.0) Monocytes (%) (Auto) 8.3 % (1.0-10.0) Eosinophils (%) (Auto) 11.2 % (0.0-3.0) Basophils (%) (Auto) 1.2 % (0.0-2.0) Sodium Level 133 MMOL/L (136-145) Potassium Level 4.2 MMOL/L (3.5-5.1) Chloride Level 95 MMOL/L (98-107) Carbon Dioxide Level 27 MMOL/L (21-32) Anion Gap 11 mmol/L (5-15) Blood Urea Nitrogen 74 mg/dL (7-18) Creatinine 4.3 MG/DL (0.55-1.30) Estimat Glomerular Filtration Rate 13.4 mL/min (>60) Glucose Level 118 MG/DL (74-106) Calcium Level 8.9 MG/DL (8.5-10.1) Height (Feet): 5 Height (Inches): 10.00 Weight (Pounds): 124 Objective Physical Exam General Appearance: nad, Chronically Ill Head: normocephalic Eyes: right eye PERRL - Will not open left eye ENT: moist mucus membranes Neck: other - submandibular mass R, fairly rigid with resistance to rotation to L, tracheotomy Respiratory: decreased breath sounds, crackles, other - pacemaker, vent+ Cardiovascular: regular rate, rhythm, edema - anasarca Gastrointestinal: non tender, distended, other - G tube Genitourinary: other Musculoskeletal: other - Contractures all extremities Neurologic: sensory intact, motor weakness, responsive Psychiatric: other Skin: Decubitus/Ulcer - Stage III right elbow, stage III left elbow, stage II sacrum, stage III scrotum, warm/dry Fitz Campos MD Oct 03, 2019 07:21
[2019-10-03 08:00] VITALS: BP 140/68
--- NOTE | 2019-10-03 08:33 | General Progress Note ---
Assessment/Plan Assessment/Plan: IMPRESSION: 1. anemia. 2. fevers improved 3. Leukocytosis. 4. hypotension 5. Acute on chronic renal failure. 6. Hyponatremia. 7. Severe protein-calorie malnutrition. 8. Significantly elevated C-reactive protein concerning for infectious etiology. 9. Tracheostomy, G-tube. 10. Ventilator dependence. 11. anasarca 12. Hematuria 13. V pacing 14. hyponatremia PLAN correct sodium lomotil care noted on vent/ no wean monitor labs ID follow up monitor renal function: HD and adjust sodium prognosis poor impression, plan, and exam edited and reviewed in detail care discussed with RN Subjective Allergies: Coded Allergies: No Known Allergies (Unverified , 06/10/19) Subjective remains ill on vent/ no change on HD vitals noted Objective Last 24 Hour Vital Signs Date Time Temp Pulse Resp B/P (MAP) Pulse Ox O2 Delivery O2 Flow Rate FiO2 10/03/19 08:00 Mechanical Ventilator 10/03/19 08:00 99.5 83 14 140/68 (92) 97 10/03/19 08:00 24 10/03/19 07:10 82 15 24 10/03/19 04:54 77 15 24 10/03/19 04:00 Mechanical Ventilator 10/03/19 04:00 97.9 78 18 157/64 (95) 100 10/03/19 04:00 24 10/03/19 03:35 74 10/03/19 02:44 73 13 Mechanical Ventilator 10/03/19 00:43 71 17 Mechanical Ventilator 10/03/19 00:00 98.2 71 15 127/58 (81) 100 10/03/19 00:00 24 10/03/19 00:00 Mechanical Ventilator 10/02/19 23:33 70 10/02/19 22:38 69 13 Mechanical Ventilator 24 10/02/19 20:43 68 14 Mechanical Ventilator 24 10/02/19 20:13 75 135/67 10/02/19 20:00 24 10/02/19 20:00 Mechanical Ventilator 10/02/19 20:00 98.6 78 13 135/67 (89) 100 10/02/19 20:00 76 10/02/19 18:55 76 17 Mechanical Ventilator 10/02/19 17:04 76 16 Mechanical Ventilator 24 10/02/19 16:00 24 10/02/19 16:00 75 10/02/19 16:00 Mechanical Ventilator 10/02/19 16:00 98.2 76 12 141/69 (93) 100 10/02/19 15:47 81 21 Mechanical Ventilator 24 10/02/19 13:18 76 15 Mechanical Ventilator 24 10/02/19 12:00 24 10/02/19 12:00 97.7 68 12 126/58 (80) 97 10/02/19 12:00 Mechanical Ventilator 10/02/19 12:00 69 10/02/19 10:59 69 12 100 Mechanical Ventilator 24 70 12 24 10/02/19 09:43 77 137/61 10/02/19 09:43 137/61 10/02/19 09:12 68 12 24 Intake and Output 10/02/19 10/03/19 19:00 07:00 Intake Total 740 ml 640 ml Balance 740 ml 640 ml Free Water 20 ml 40 ml Tube Feeding 720 ml 600 ml Laboratory Tests 10/02/19 13:01: POC Whole Blood Glucose [Pending] 10/02/19 18:42: POC Whole Blood Glucose 181H 10/03/19 00:18: POC Whole Blood Glucose 195H 10/03/19 04:40: White Blood Count 16.7H, Red Blood Count 3.72L, Hemoglobin 9.2L, Hematocrit 30.1L, Mean Corpuscular Volume 81, Mean Corpuscular Hemoglobin 24.7L, Mean Corpuscular Hemoglobin Concent 30.5L, Red Cell Distribution Width 16.6H, Platelet Count 459H, Mean Platelet Volume 5.7L, Neutrophils (%) (Auto) 64.0, Lymphocytes (%) (Auto) 15.4L, Monocytes (%) (Auto) 8.3, Eosinophils (%) (Auto) 11.2H, Basophils (%) (Auto) 1.2, Sodium Level 133L, Potassium Level 4.2, Chloride Level 95L, Carbon Dioxide Level 27, Anion Gap 11, Blood Urea Nitrogen 74H, Creatinine 4.3H, Estimat Glomerular Filtration Rate 13.4, Glucose Level 118H, Calcium Level 8.9 10/03/19 05:27: POC Whole Blood Glucose 105 Height (Feet): 5 Height (Inches): 10.00 Weight (Pounds): 124 Objective GENERAL: Ill-appearing male, chronically debilitated. HEENT: Tracheostomy in midline. Questionable fullness in the submandibular region. LUNGS: Coarse breath sounds. reduced breath sounds CARDIAC: S1, S2. Regular rate and rhythm. ABDOMEN: Soft. G-tube. EXTREMITIES: With noted edema. NEUROLOGICAL: Poorly responsive, weak diffusely. Kain Ramirez MD Oct 03, 2019 08:33
--- NOTE | 2019-10-03 08:35 | NUR ---
NURSE NOTES: Dr. Mustafa at bedside. Informed him that patient's rectal tube output with previous shift is 10ml. And patient is on scheduled miralax 1 packet via GT QD. No new order at this time.
[2019-10-03] MEDS: Lactobacillus-GG tablet GT SCH ×2 (08:46→20:26)
[2019-10-03] MEDS: Miralax 17gm pkt GT SCH (08:47)
[2019-10-03] MEDS: Minoxidil 2.5mg tab GT SCH (09:00)
[2019-10-03] MEDS ORDERED: Heparin 1000 units/ml 1ml Vial INJ SCH (09:00)
[2019-10-03] MEDS ORDERED: Heparin Sod 1000 units/ml 10ml IV PRN (09:00)
[2019-10-03] MEDS: Metoprolol Tartrate 100mg tab GT SCH ×2 (09:00→20:26)
[2019-10-03] MEDS: Zinc Oxide Oint 2oz TOPIC SCH ×2 (09:20→20:27)
--- NOTE | 2019-10-03 09:30 | NUR ---
NURSE NOTES: [facility] Nurse/Sylvester called, she confirmed dialysis today.
--- NOTE | 2019-10-03 10:25 | Infectious Diseases Prog Note ---
"Assessment/Plan Assessment/Plan antibiotics : cefepime 10.01.19 - unasyn 10.02.19 - A 1. acenitobacter | proteus pneumonia 2. respiratory failure 3. leucocytosis 4. COVID 19 test negative x 2 5. renal failure on HD P 1. continue unasyn 5 more days 2. continue cefepime 4 more days 3. will follow up cultures Subjective ROS Limited/Unobtainable: Yes Allergies: Coded Allergies: No Known Allergies (Unverified , 06/10/19) Objective Last 24 Hour Vital Signs Date Time Temp Pulse Resp B/P (MAP) Pulse Ox O2 Delivery O2 Flow Rate FiO2 10/03/19 08:33 83 10/03/19 08:00 Mechanical Ventilator 10/03/19 08:00 99.5 83 14 140/68 (92) 97 10/03/19 08:00 24 10/03/19 07:10 82 15 24 10/03/19 04:54 77 15 24 10/03/19 04:00 Mechanical Ventilator 10/03/19 04:00 97.9 78 18 157/64 (95) 100 10/03/19 04:00 24 10/03/19 03:35 74 10/03/19 02:44 73 13 Mechanical Ventilator 10/03/19 00:43 71 17 Mechanical Ventilator 10/03/19 00:00 98.2 71 15 127/58 (81) 100 10/03/19 00:00 24 10/03/19 00:00 Mechanical Ventilator 10/02/19 23:33 70 10/02/19 22:38 69 13 Mechanical Ventilator 10/02/19 20:43 68 14 Mechanical Ventilator 10/02/19 20:13 75 135/67 10/02/19 20:00 24 10/02/19 20:00 Mechanical Ventilator 10/02/19 20:00 98.6 78 13 135/67 (89) 100 10/02/19 20:00 76 10/02/19 18:55 76 17 Mechanical Ventilator 10/02/19 17:04 76 16 Mechanical Ventilator 24 10/02/19 16:00 24 10/02/19 16:00 75 10/02/19 16:00 Mechanical Ventilator 10/02/19 16:00 98.2 76 12 141/69 (93) 100 10/02/19 15:47 81 21 Mechanical Ventilator 24 10/02/19 13:18 76 15 Mechanical Ventilator 24 10/02/19 12:00 24 10/02/19 12:00 97.7 68 12 126/58 (80) 97 10/02/19 12:00 Mechanical Ventilator 10/02/19 12:00 69 10/02/19 10:59 69 12 100 Mechanical Ventilator 24 70 12 24 Height (Feet): 5 Height (Inches): 10.00 Weight (Pounds): 124 HEENT: status post trach Respiratory/Chest: lungs clear Cardiovascular: normal rate, regular rhythm, no gallop/murmur Abdomen: soft, non tender, other - GT Extremities: no edema, other - right subclavian catheter Laboratory Tests Test 10/02/19 13:01 10/02/19 18:42 10/03/19 00:18 10/03/19 04:40 POC Whole Blood Glucose Pending 181 MG/DL (74-106) H 195 MG/DL (74-106) H White Blood Count 16.7 K/UL (4.8-10.8) H Red Blood Count 3.72 M/UL (4.70-6.10) L Hemoglobin 9.2 G/DL (14.2-18.0) L Hematocrit 30.1 % (42.0-52.0) L Mean Corpuscular Volume 81 FL (80-99) Mean Corpuscular Hemoglobin 24.7 PG (27.0-31.0) L Mean Corpuscular Hemoglobin Concent 30.5 G/DL (32.0-36.0) L Red Cell Distribution Width 16.6 % (11.6-14.8) H Platelet Count 459 K/UL (150-450) H Mean Platelet Volume 5.7 FL (6.5-10.1) L Neutrophils (%) (Auto) 64.0 % (45.0-75.0) Lymphocytes (%) (Auto) 15.4 % (20.0-45.0) L Monocytes (%) (Auto) 8.3 % (1.0-10.0) Eosinophils (%) (Auto) 11.2 % (0.0-3.0) H Basophils (%) (Auto) 1.2 % (0.0-2.0) Sodium Level 133 MMOL/L (136-145) L Potassium Level 4.2 MMOL/L (3.5-5.1) Chloride Level 95 MMOL/L (98-107) L Carbon Dioxide Level 27 MMOL/L (21-32) Anion Gap 11 mmol/L (5-15) Blood Urea Nitrogen 74 mg/dL (7-18) H Creatinine 4.3 MG/DL (0.55-1.30) H Estimat Glomerular Filtration Rate 13.4 mL/min (>60) Glucose Level 118 MG/DL (74-106) H Calcium Level 8.9 MG/DL (8.5-10.1) Test 10/03/19 05:27 POC Whole Blood Glucose 105 MG/DL (74-106) Current Medications Medications (Trade) Dose Ordered Sig/Leonel Route PRN Reason Start Time Stop Time Status Last Admin Dose Admin Acetaminophen (Tylenol) 650 mg Q4H PRN GT Mild Pain (Pain Scale 1-3) 09/21/19 12:45 10/21/19 12:44 09/30/19 05:22 Ampicillin Sodium/ Sulbactam Sodium 3 gm/Sodium Chloride 110 ml @ 220 mls/hr Q24H IVPB 10/02/19 13:00 10/09/19 12:59 10/02/19 14:25 Atorvastatin Calcium (Lipitor) 40 mg BEDTIME GT 08/09/19 21:00 11/07/19 20:59 10/02/19 20:12 Cefepime HCl 500 mg/Dextrose 55 ml @ 110 mls/hr Q24H IVPB 10/02/19 12:00 10/09/19 11:59 10/02/19 13:03 Chlorhexidine Gluconate (Felipa-Hex 2%) 1 applic DAILY@2000 TOPIC 09/12/19 20:00 12/11/19 19:59 10/02/19 20:12 Clonidine HCl (Catapres Tab) 0.1 mg Q4H PRN GT For High Blood Pressure 09/09/19 12:30 12/08/19 05:29 09/15/19 04:10 Dextrose (Dextrose 50%) 25 ml Q30M PRN IV Hypoglycemia 08/09/19 07:30 11/07/19 07:29 Dextrose (Dextrose 50%) 50 ml Q30M PRN IV Hypoglycemia 08/09/19 07:30 11/07/19 07:29 Diphenoxylate HCl/ Atropine (Lomotil) 2.5 mg QID PRN ORAL Diarrhea 09/24/19 08:45 10/24/19 08:44 Epoetin Andreas (Epoetin Andreas(ESRD on dialysis)) 10,000 unit WED-WED-WED SUBQ 09/20/19 21:00 12/19/19 20:59 10/02/19 20:12 Famotidine (Pepcid) 20 mg DAILY GT 08/30/19 09:00 11/28/19 08:59 10/03/19 08:47 Heparin Sodium (Porcine) (Heparin Sod 1000 units/ml 10ml) 2,000 unit ONCE PRN IV dialysis 10/03/19 09:00 10/03/19 23:59 Heparin Sodium (Porcine) (Heparin) 1,000 unit POSTHD INJ 10/03/19 09:00 10/03/19 23:59 Insulin Aspart (NovoLOG) Q6HR SUBQ 09/25/19 18:00 11/07/19 11:29 10/03/19 00:21 Lactobacillus Acidophilus (Culturelle) 1 tab TWICE A DAY GT 09/14/19 18:00 12/13/19 17:59 10/03/19 08:46 Metoprolol Tartrate (Lopressor) 200 mg Q12HR GT 08/09/19 09:00 11/07/19 08:59 10/02/19 20:13 Minoxidil (Loniten) 5 mg DAILY GT 08/09/19 09:00 11/07/19 08:59 10/02/19 09:43 Polyethylene Glycol (Miralax) 17 gm DAILY GT 09/28/19 11:00 10/28/19 10:59 10/03/19 08:47 Sodium Chloride 1,000 ml @ 500 mls/hr Q2H PRN IVLG sbp<90 during hd 10/03/19 09:00 10/03/19 23:59 Zinc Oxide (Zinc Oxide) 1 applic EVERY 12 HOURS TOPIC 10/03/19 09:00 11/08/19 17:59 10/03/19 09:20 Farnaz Lyle MD Oct 03, 2019 10:25"
--- NOTE | 2019-10-03 11:45 | NUR ---
RD ASSESSMENT & RECOMMENDATIONS SEE CARE ACTIVITY FOR COMPLETE ASSESSMENT DAILY ESTIMATED NEEDS: Needs based on Renal, critical care, wound/ 61kg 22-30 kcals/kg 5640-6113 total kcals 1.25-2 g protein/kg 76-122 g total protein Fluid per MD, now on HD NUTRITION DIAGNOSIS: * Swallowing difficulty R/T respiratory failure, dysphagia as evidenced by trach/vent dep, PEG dep * Increased kcal/prot needs R/T wound healing as evidenced by admitted w/ multiple pressure injuries including full thickness wounds at junction of Shaft of penis, dorsal scrotum, R elbow, and DTPI @ L buttocks. CURRENT TF:Osmolite 1.2 @ 60ml/hr x 20 hrs + Garo BID ENTERAL NUTRITION RECOMMENDATIONS: Vital AF 1.2 @ 60ml/hr x 20 hrs to provide 1200ml, 1440kcal, 90g prot, 973ml free water * Rec 20 hr run time for GI rest. -> W/ improved GI status, rec Vital AF 1.2, an elemental and carb controlled TF -> monitor lytes and renal fxn closely, monitor need for renal TF -> TF @ goal will provide 1642mg K and 2025mg Phos -> HOB over 30 degrees/ water flush per MD -------- Trial of Osmolite 1.2 continue for now- Goal of 60ml/hr for 20 hrs (4 hrs bowel rest) to provide 1200ml, 1440 kcal, 67g pro, 984ml free H2O, -> Rec to add prosource 1 pack daily (11g pro) to better meet est pro needs. -> Monitor BG, K closely. Pt would require increased insulin coverage as TF at goal would provide 56g more carbs per day. ADDITIONAL RECOMMENDATIONS: * Per SNF: HT=63" YF=963 lbs (vs EMR wt of 166lbs) -> obtain re-calibrated bedscale wt, rec daily wt monitoring * Wound healing: con't Nephrovite + Garo BID/ Vit C dosing per Nephro * Monitor renal fxn and lytes closely w/ non-renal TF ->K low, phos wnl;updated mag level; rec increased insulin w/ BG labs * Daily wts w/ drop to 118-20 lbs, rec to recalibrate for accurate CBW * Consider DC Miralax if medically appropriate: +rectal tube
--- NOTE | 2019-10-03 11:56 | Nephrology Progress Note ---
Assessment/Plan Plan MOF ESRD - HD TTS. Anemia of CKD -TUYET. Subjective Subjective Obtunded. Objective Objective Last 24 Hour Vital Signs Date Time Temp Pulse Resp B/P (MAP) Pulse Ox O2 Delivery O2 Flow Rate FiO2 10/03/19 08:33 83 10/03/19 08:00 Mechanical Ventilator 10/03/19 08:00 99.5 83 14 140/68 (92) 97 10/03/19 08:00 24 10/03/19 07:10 82 15 24 10/03/19 04:54 77 15 24 10/03/19 04:00 Mechanical Ventilator 10/03/19 04:00 97.9 78 18 157/64 (95) 100 10/03/19 04:00 24 10/03/19 03:35 74 10/03/19 02:44 73 13 Mechanical Ventilator 10/03/19 00:43 71 17 Mechanical Ventilator 10/03/19 00:00 98.2 71 15 127/58 (81) 100 10/03/19 00:00 24 10/03/19 00:00 Mechanical Ventilator 10/02/19 23:33 70 10/02/19 22:38 69 13 Mechanical Ventilator 10/02/19 20:43 68 14 Mechanical Ventilator 10/02/19 20:13 75 135/67 10/02/19 20:00 24 10/02/19 20:00 Mechanical Ventilator 10/02/19 20:00 98.6 78 13 135/67 (89) 100 10/02/19 20:00 76 10/02/19 18:55 76 17 Mechanical Ventilator 10/02/19 17:04 76 16 Mechanical Ventilator 10/02/19 16:00 24 10/02/19 16:00 75 10/02/19 16:00 Mechanical Ventilator 10/02/19 16:00 98.2 76 12 141/69 (93) 100 10/02/19 15:47 81 21 Mechanical Ventilator 10/02/19 13:18 76 15 Mechanical Ventilator 24 10/02/19 12:00 24 10/02/19 12:00 97.7 68 12 126/58 (80) 97 10/02/19 12:00 Mechanical Ventilator 10/02/19 12:00 69 Intake and Output 10/02/19 10/03/19 19:00 07:00 Intake Total 740 ml 640 ml Balance 740 ml 640 ml Free Water 20 ml 40 ml Tube Feeding 720 ml 600 ml Laboratory Tests 10/02/19 13:01: POC Whole Blood Glucose [Pending] 10/02/19 18:42: POC Whole Blood Glucose 181H 10/03/19 00:18: POC Whole Blood Glucose 195H 10/03/19 04:40: White Blood Count 16.7H, Red Blood Count 3.72L, Hemoglobin 9.2L, Hematocrit 30.1L, Mean Corpuscular Volume 81, Mean Corpuscular Hemoglobin 24.7L, Mean Corpuscular Hemoglobin Concent 30.5L, Red Cell Distribution Width 16.6H, Platelet Count 459H, Mean Platelet Volume 5.7L, Neutrophils (%) (Auto) 64.0, Lymphocytes (%) (Auto) 15.4L, Monocytes (%) (Auto) 8.3, Eosinophils (%) (Auto) 11.2H, Basophils (%) (Auto) 1.2, Sodium Level 133L, Potassium Level 4.2, Chloride Level 95L, Carbon Dioxide Level 27, Anion Gap 11, Blood Urea Nitrogen 74H, Creatinine 4.3H, Estimat Glomerular Filtration Rate 13.4, Glucose Level 118H, Calcium Level 8.9 10/03/19 05:27: POC Whole Blood Glucose 105 10/03/19 11:33: POC Whole Blood Glucose 166H Height (Feet): 5 Height (Inches): 10.00 Weight (Pounds): 124 Objective CV RR Trach clean Lungs CTA New Perma Cath RIJ. Abd SNT. BS + E No CCE Erica Pichardo MD Oct 03, 2019 11:56
[2019-10-03 12:00] VITALS: BP 134/61
--- NOTE | 2019-10-03 12:13 | NUR ---
CASE MANAGEMENT:REVIEW SI;PNA. RESPIRATORY FAILURE. RENAL FAILURE on HD. T 99.5 P 87 RR 18 BP 157/64 SpO2 97% TRACH/VENT FIO2 24% WBC 16.7 PLT 459 NA 133 BUN 74 CR 4.3 IS;UNASYN IV Q24 CEFEPIME IV Q24 INSULIN NOVOLOG SUBQ Q6 HEPARIN IV POST HD INJ LOPRESSOR GT Q12 LONITEN GT QD LIPITOR GT QD LACTOBACILLUS GT BID KEREN STATUS DCP;TO SUB ACUTE PENDING INSURANCE AUTH
--- NOTE | 2019-10-03 12:31 | NUR ---
INSURANCE UPDATED CLINICALS AND REVIEWS HAVE BEEN FAXED TO: [facility] REF# [id number] RIC:HARPER P:[phone] F:[phone]
[2019-10-03] MEDS: Cefepime HCl 500 MG in D5W 55 ML IVPB SCH (12:55)
[2019-10-03] MEDS: Ampicillin/Sulbactam Sod 3 GM in NS 110 ML IVPB SCH (13:50)
--- NOTE | 2019-10-03 13:59 | Surgery Progress Note ---
Surgery Progress Note Subjective Procedure Performed Right femoral temporary hemodialysis catheter removal Additional Comments pending dispo labs noted eaxm stable on support Objective Last 24 Hour Vital Signs Date Time Temp Pulse Resp B/P (MAP) Pulse Ox O2 Delivery O2 Flow Rate FiO2 10/03/19 12:00 Mechanical Ventilator 10/03/19 12:00 98.8 81 12 134/61 (85) 97 10/03/19 12:00 24 10/03/19 11:05 87 14 24 10/03/19 08:33 83 10/03/19 08:00 Mechanical Ventilator 10/03/19 08:00 99.5 83 14 140/68 (92) 97 10/03/19 08:00 24 10/03/19 07:10 82 15 24 10/03/19 04:54 77 15 24 10/03/19 04:00 Mechanical Ventilator 10/03/19 04:00 97.9 78 18 157/64 (95) 100 10/03/19 04:00 24 10/03/19 03:35 74 10/03/19 02:44 73 13 Mechanical Ventilator 24 10/03/19 00:43 71 17 Mechanical Ventilator 24 10/03/19 00:00 98.2 71 15 127/58 (81) 100 10/03/19 00:00 24 10/03/19 00:00 Mechanical Ventilator 10/02/19 23:33 70 10/02/19 22:38 69 13 Mechanical Ventilator 10/02/19 20:43 68 14 Mechanical Ventilator 10/02/19 20:13 75 135/67 10/02/19 20:00 24 10/02/19 20:00 Mechanical Ventilator 10/02/19 20:00 98.6 78 13 135/67 (89) 100 10/02/19 20:00 76 10/02/19 18:55 76 17 Mechanical Ventilator 24 10/02/19 17:04 76 16 Mechanical Ventilator 24 10/02/19 16:00 24 10/02/19 16:00 75 10/02/19 16:00 Mechanical Ventilator 10/02/19 16:00 98.2 76 12 141/69 (93) 100 10/02/19 15:47 81 21 Mechanical Ventilator 24 I&O Intake and Output 10/02/19 10/03/19 19:00 07:00 Intake Total 740 ml 640 ml Balance 740 ml 640 ml Free Water 20 ml 40 ml Tube Feeding 720 ml 600 ml Dressing: other Wound: other Cardiovascular: RSR Respiratory: decreased breath sounds Abdomen: soft, non-tender, present bowel sounds Extremities: no edema, no tenderness, no cyanosis Laboratory Tests Test 10/02/19 18:42 10/03/19 00:18 10/03/19 04:40 10/03/19 05:27 POC Whole Blood Glucose 181 MG/DL (74-106) H 195 MG/DL (74-106) H 105 MG/DL (74-106) White Blood Count 16.7 K/UL (4.8-10.8) H Red Blood Count 3.72 M/UL (4.70-6.10) L Hemoglobin 9.2 G/DL (14.2-18.0) L Hematocrit 30.1 % (42.0-52.0) L Mean Corpuscular Volume 81 FL (80-99) Mean Corpuscular Hemoglobin 24.7 PG (27.0-31.0) L Mean Corpuscular Hemoglobin Concent 30.5 G/DL (32.0-36.0) L Red Cell Distribution Width 16.6 % (11.6-14.8) H Platelet Count 459 K/UL (150-450) H Mean Platelet Volume 5.7 FL (6.5-10.1) L Neutrophils (%) (Auto) 64.0 % (45.0-75.0) Lymphocytes (%) (Auto) 15.4 % (20.0-45.0) L Monocytes (%) (Auto) 8.3 % (1.0-10.0) Eosinophils (%) (Auto) 11.2 % (0.0-3.0) H Basophils (%) (Auto) 1.2 % (0.0-2.0) Sodium Level 133 MMOL/L (136-145) L Potassium Level 4.2 MMOL/L (3.5-5.1) Chloride Level 95 MMOL/L (98-107) L Carbon Dioxide Level 27 MMOL/L (21-32) Anion Gap 11 mmol/L (5-15) Blood Urea Nitrogen 74 mg/dL (7-18) H Creatinine 4.3 MG/DL (0.55-1.30) H Estimat Glomerular Filtration Rate 13.4 mL/min (>60) Glucose Level 118 MG/DL (74-106) H Calcium Level 8.9 MG/DL (8.5-10.1) Test 10/03/19 11:33 POC Whole Blood Glucose 166 MG/DL (74-106) H Plan Problems: (1) Anemia (2) Hyponatremia (3) Leukocytosis Assessment & Plan: Tracheostomy, left chest pacemaker are again demonstrated. There is bilateral interstitial and airspace disease and bilateral pleural fluid again demonstrated. This appears more severe than on the prior study. Bilateral interstitial and airspace infiltrates versus edema. Bilateral pleural effusions Leukocytosis, anemia, tachycardia, abnormal labs. Wound evaluated and likely etiology of patient's sepsis. Leukocytosis etiology work-up antibiotics per infectious disease Appreciate nephrology input transfuse with dialysis We will follow with recommendations thank you allowing participation's care plan HD access temp HD discussed with medical teams line okay HD as per renal persistent leukocytosis flow cyto noted improving trending down right fem line removed wbc trending down (4) Ventilator dependent (5) Right lower lobe pneumonia (6) Hypokalemia (7) Hyperkalemia (8) Anasarca (9) Decubitus skin ulcer Assessment & Plan: pt presented on admission with generalized edemae.Skin assessed under tracheostomy and no areas of concerns noted. GT Insertion is marginally erythematous with small amt slough at stoma. Unstageable Pressure Injury R elbow. Base of wound is 100% yellow slough, Borders are erythematous. Wound oozing small amt haemopurulent exudate.Darker skin tone without elevation in skin temp or erythema periwound. Pt's penis and scrotum are grossly edematous and enlarged and weeping serous exudate from numerous sites both from penis and scrotum. Two small open wounds noted at base of at base of shaft of penis ,and contreras aspect of scrotum. Both wounds oozing large amt sanguineous and serosanguineous exudate. Multiple open wounds with Biofilm at base of each wounds noted to contreras/lateral,inferior and posterior aspects of scrotum. These wounds noted to be oozing moderate amts of serosanguineous exudate. Hypertrophic scar with scattered areas of hyperpigmentation noted to Sacrum. DTPI noted to L Buttocks (L)7cm x (W)9cm. Base of wound is purple and indurated.Darker skin tone without erythema, induration or fluctuance R and L ischial tuberosities. Both heels are boggy with non-blanchable erythema. Tx.Plan: Cleanse wound R elbow with Saline. Apply TheraHoney, Apply Moisture Barrier Paste periwound. Cover with Optifoam drsg.Change Daily and prn. Wash GT site with soap and water.Pat dry. Apply Zinc Oxide Paste to GT site Daily. Leave Open to Air. Apply Zinc Oxide Paste to entire Scrotum, Place ABD pads to R and L lateral, and posterior aspects of scrotum TWICE daily. Apply Cavilon Skin Barrier to malleoli and both Heels. Cover each site with Optifoam drsgs. Change every 7 days and prn. Reposition at least every 2hours or as tolerated. Off-load heels with Pillows. APM/BECCA Mattress overlay. (10) Malnutrition Assessment & Plan: DAILY ESTIMATED NEEDS: Needs based on Renal, critical care, wound/ 61kg 22-30 kcals/kg 4365-8860 total kcals 1.25-2 g protein/kg 76-122 g total protein Fluid per MD, now on HD NUTRITION DIAGNOSIS: * Swallowing difficulty R/T respiratory failure, dysphagia as evidenced by trach/vent dep, PEG dep * Increased kcal/prot needs R/T wound healing as evidenced by admitted w/ multiple pressure injuries including full thickness wounds at junction of Shaft of penis, dorsal scrotum, R elbow, and DTPI @ L buttocks. CURRENT TF:Osmolite 1.2 @ 60ml/hr x 20 hrs + Garo BID ENTERAL NUTRITION RECOMMENDATIONS: Vital AF 1.2 @ 60ml/hr x 20 hrs to provide 1200ml, 1440kcal, 90g prot, 973ml free water * Rec 20 hr run time for GI rest. -> W/ improved GI status, rec Vital AF 1.2, an elemental and carb controlled TF -> monitor lytes and renal fxn closely, monitor need for renal TF -> TF @ goal will provide 1642mg K and 2025mg Phos -> HOB over 30 degrees/ water flush per MD -------- Trial of Osmolite 1.2 continue for now- Goal of 60ml/hr for 20 hrs (4 hrs bowel rest) to provide 1200ml, 1440 kcal, 67g pro, 984ml free H2O, -> Rec to add prosource 1 pack daily (11g pro) to better meet est pro needs. -> Monitor BG, K closely. Pt would require increased insulin coverage as TF at goal would provide 56g more carbs per day. ADDITIONAL RECOMMENDATIONS: * Per SNF: HT=63" FC=096 lbs (vs EMR wt of 166lbs) -> obtain re-calibrated bedscale wt, rec daily wt monitoring * Wound healing: con't Nephrovite + Garo BID/ Vit C dosing per Nephro * Monitor renal fxn and lytes closely w/ non-renal TF ->K low, phos wnl;updated mag level; rec increased insulin w/ BG labs * Daily wts w/ drop to 118-20 lbs, rec to recalibrate for accurate CBW * Consider DC Miralax if medically appropriate: +rectal tube (11) Uremia (12) CKD (chronic kidney disease) stage 5, GFR less than 15 ml/min (13) Colon distention Assessment & Plan: discussed with GI likely functional as having lots of loose bm rectal tube kub f/u s/p colonoscopy - findings reviewed with GI improved cont diet as tolerated Marked distention of the sigmoid colon. 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 No evidence of bowel wall thickening or pneumatosis 12 mm focus of contrast enhancement in the right pectineus muscle. While nonspecific in appearance, appearance raises concern for a possible pseudoaneurysm. Ill- defined thickening of the pectus medius muscle could indicate some intramuscular hemorrhage. The above findings were phoned to Dr. Urias at the time of interpretation Large bilateral pleural effusions Hazy pulmonary parenchymal opacities as well as dense consolidative opacities most likely represent pulmonary edema, but could represent pneumonia Evidence of anasarca elsewhere, with generalized edema of the subcutaneous fat Bladder wall thickening, raises concern for cystitis. Avalos catheter in place Colonic diverticulosis. No evidence of diverticulitis. Tracheostomy Pacemaker Gastrostomy Jonathan Urias Oct 03, 2019 13:59
[2019-10-03 16:00] VITALS: BP 127/78
[2019-10-03] MEDS ORDERED: Sterile Water Irrig 1000ml IRRIG ONE (16:08)
--- NOTE | 2019-10-03 16:50 | NUR ---
NURSE NOTES: Covid swab obtained from patient's right nare and sent to lab per protocol.
--- NOTE | 2019-10-03 17:00 | NUR ---
NURSE NOTES: [facility] HD nurse/Sylvester at bedside. Patient is currently having dialysis now.
--- NOTE | 2019-10-03 19:02 | NUR ---
NURSE HAND-OFF REPORT: Important Events on Shift: Patient Status: Full code Diet: GTF Pending Orders: Currently on dialysis session Pending Results/Labs: Pending MD notification: Covid negative result today. Latest Vital Signs: Temperature 98.4 , Pulse 101 , B/P 127 /78 , Respiratory Rate 20 , O2 SAT 99 , Mechanical Ventilator, O2 Flow Rate 15.0 . Vital Sign Comment: EKG Rhythm: Sinus Rhythm with BBB Rhythm change?: N MD Notified?: N - MD Response: Latest Delacruz Fall Score: 70 Fall Risk: High Risk Safety Measures: Call light Within Reach, Bed Alarm Zone 1, Side Rails Side Rails x3, Bed position Low and Locked. Fall Precautions: Yellow Socks Contact isolation observed. Report given to Merlyn Emmanuel RN
--- NOTE | 2019-10-03 19:03 | NUR ---
NURSE NOTES: Report received from TAMICA Ruiz with update. Pt. undergoing hemodialysis upon arrival of shift. No cardiac or respiratory distress noted. Pt. left IV intact TKO. G-tube intact running Osmolite 1.2. 0 residual noted. Rectal tube intact and draining. HOB elevated to 30 deg. Bed in lowest and locked position. Will continue monitoring.
[2019-10-03 20:00] VITALS: BP 156/84
[2019-10-03] MEDS: Dyna-Hex 2% Top Sol 2oz TOPIC SCH (20:25)
[2019-10-03] MEDS: Atorvastatin 20mg tab GT SCH (20:26)
--- NOTE | 2019-10-03 21:00 | NUR ---
"NURSE NOTES: 2.5L out post-HD. Subclav PermCath site clean and dressing changed. No bleeding observed. Pt BP 156/84 89 BPM. 5-lead EKG shows SR. Vent settings A/C 12 | Vt 550 | 24% FiO2 saturating at 100%. Will continue monitoring."
--- NOTE | 2019-10-03 21:20 | General Progress Note ---
Assessment/Plan Assessment/Plan: Assessment - abdominal distention, due to colonic dysmotility, - colonoscopy negative to hepatic flexure - diarrhea - abnormal LFT - Anemia - leukocytosis - stool OB (+) - EGD --> gastritis - Renal failure - Anasarca - resp failure, trach - dysphagia, GT - encephalopathy, contracted - poor px Recommendations - continue TF - rectal tube - hold mirlax and monitor exam / output - roll side to side as feasible (hard due to severe contractions) - Elevate HOB - f/u labs - PPI - abx - supportive care Subjective Allergies: Coded Allergies: No Known Allergies (Unverified , 06/10/19) Subjective above noted tolerating feeds liquid stool 200 - 700 cc/d Objective Last 24 Hour Vital Signs Date Time Temp Pulse Resp B/P (MAP) Pulse Ox O2 Delivery O2 Flow Rate FiO2 10/03/19 20:48 76 16 24 10/03/19 20:26 93 143/62 10/03/19 19:46 90 10/03/19 18:50 101 20 24 10/03/19 16:00 Mechanical Ventilator 10/03/19 16:00 24 10/03/19 16:00 98.4 78 19 127/78 (94) 99 10/03/19 15:32 77 10/03/19 15:00 78 16 24 10/03/19 12:00 Mechanical Ventilator 10/03/19 12:00 98.8 81 12 134/61 (85) 97 10/03/19 12:00 24 10/03/19 12:00 82 10/03/19 11:05 87 14 24 10/03/19 08:33 83 10/03/19 08:00 Mechanical Ventilator 10/03/19 08:00 99.5 83 14 140/68 (92) 97 10/03/19 08:00 24 10/03/19 07:10 82 15 24 10/03/19 04:54 77 15 24 10/03/19 04:00 Mechanical Ventilator 10/03/19 04:00 97.9 78 18 157/64 (95) 100 10/03/19 04:00 24 10/03/19 03:35 74 10/03/19 02:44 73 13 Mechanical Ventilator 10/03/19 00:43 71 17 Mechanical Ventilator 10/03/19 00:00 98.2 71 15 127/58 (81) 100 10/03/19 00:00 24 10/03/19 00:00 Mechanical Ventilator 10/02/19 23:33 70 10/02/19 22:38 69 13 Mechanical Ventilator 24 Intake and Output 10/02/19 10/03/19 19:00 07:00 Intake Total 740 ml 640 ml Balance 740 ml 640 ml Free Water 20 ml 40 ml Tube Feeding 720 ml 600 ml Laboratory Tests 10/03/19 00:18: POC Whole Blood Glucose 195H 10/03/19 04:40: White Blood Count 16.7H, Red Blood Count 3.72L, Hemoglobin 9.2L, Hematocrit 30.1L, Mean Corpuscular Volume 81, Mean Corpuscular Hemoglobin 24.7L, Mean Corpuscular Hemoglobin Concent 30.5L, Red Cell Distribution Width 16.6H, Platelet Count 459H, Mean Platelet Volume 5.7L, Neutrophils (%) (Auto) 64.0, Lymphocytes (%) (Auto) 15.4L, Monocytes (%) (Auto) 8.3, Eosinophils (%) (Auto) 11.2H, Basophils (%) (Auto) 1.2, Sodium Level 133L, Potassium Level 4.2, Chloride Level 95L, Carbon Dioxide Level 27, Anion Gap 11, Blood Urea Nitrogen 74H, Creatinine 4.3H, Estimat Glomerular Filtration Rate 13.4, Glucose Level 118H, Calcium Level 8.9 10/03/19 05:27: POC Whole Blood Glucose 105 10/03/19 11:33: POC Whole Blood Glucose 166H 10/03/19 17:46: POC Whole Blood Glucose 138H Height (Feet): 5 Height (Inches): 10.00 Weight (Pounds): 124 Objective Debilitated AA man NCAT (+) trach coarse BS RR abd less distended, anasarca, (+) GT, (+) rectal tube ext (+) edema contracted Ronny Mustafa MD Oct 03, 2019 21:20
[2019-10-04] VITALS: BP 118/62
[2019-10-04 04:00] VITALS: BP 145/64
[2019-10-04] MEDS: NovoLOG Insulin Flexpen SUBQ SCH ×4 (05:27→23:11)
--- NOTE | 2019-10-04 07:40 | Hematology/Onc Progress Note ---
Assessment/Plan Assessment/Plan Assessment/recs # Leukocytosis - with multiple infections, VRE UTI, flow is negative --> wbc trend 33-->28-->25->23->22->23->24->17.3-->17-->14->16-->15.6-->14-->14- >13->19->18->17->22->22->19->17-->18->20-->15-->14->16-->14-->17 --> on abx, linezolid and zosyn--> zosyn-->gent-->off --> + blood cultures with coag neg staph likely contaminated --> as per id recs --> has ordered a flow cytometry (with pathology) --> does show increased nK cell activity --> JOURDAN 2 and bcr-abl labs ordered (these are send outs) --> plt 585-->613-->649-->669->663-->529-->506 # Anemia due to chronic disease/kidney disease as well, gi bleed + occult + noted --> was on iron in the past, now on hold --> has been started on Epogen sq --> as per renal care --> egd done and shows gastritis --> on ppi --> egd showed gastritis, colo recently done --> hgb 9-->8.7-->7.6-->9.2-->8.9-->9.2->9.3-->8.8->9.9-->9.2-->8.1-->8.7-->7.9- ->8.6-->8.9-->8.2->9-->9.3->8.9-->9.5-->10.6->9.2 # Respiratory failure --> per pulm, s/p trach --> COVID 19 test negative x 2 # Hyperlipidemia --> statin po # Dysphagia s/p gtube with nepro --> per gi # ESRD with r fem julito --> hd as per renal # Dvt ppx scds Appreciate consultation and matt Rn Subjective HEENT: Denies: no symptoms, eye pain, blurred vision, tearing, double vision, ear pain, ear discharge, nose pain, nose congestion, throat pain, throat swelling, mouth pain, mouth swelling, other Cardiovascular: Denies: no symptoms, chest pain, edema, irregular heart rate, lightheadedness, palpitations, syncope, other Respiratory: Denies: no symptoms, cough, shortness of breath, SOB with excertion, SOB at rest, sputum, wheezing, other Gastrointestinal/Abdominal: Denies: no symptoms, abdomen distended, abdominal pain, black stools, tarry stools, blood in stool, constipated, diarrhea, difficulty swallowing, nausea, poor appetite, poor fluid intake, rectal bleeding , vomiting, other Genitourinary: Denies: no symptoms, burning, discharge, frequency, flank pain, hematuria, incontinence, pain, urgency, other Endocrine: Denies: no symptoms, excessive sweating, flushing, intolerance to cold, intolerance to heat, increased hunger, increased thirst, increased urine, unexplained weight gain, unexplained weight loss, other Allergies: Coded Allergies: No Known Allergies (Unverified , 06/10/19) Subjective 08/15 meds noted, no bleeding, hgb 8.8, wbc 28, path flow pending 08/16 flow pending dw pathologist, results pending, wbc 25, hgb 9 08/17 labs reviewed, meds reviewed, meds noted, no night sweats 08/19 remains obtunded, on vent/trach, no bleeding wbc 21.7 08/20 labs have been reviewed, no bleeding, wbc still elev, path reviewed 08/21 labs are noted, no bleeding, on vent, wbc better 08/22 labs noted, no bleeding, meds reviewed, wbc 24 hgb 7.6 08/23 vent, off abx, c diff negative, h/h stable 08/24 labs reviewed, on abx, wbc 17, hgb 8.9, no hemolysis 08/26 reviewed flow and is negative for leukemia, matt wright 08/27 meds reviewed, no night sweats, matt rn, no major bleeding 08/28 meds reivewed, labs noted 08/29 wbc is stable, approx 15, hgb 8.8, no hemolysis 08/30 labs are noted, is for colo today, hgb 9.9 08/31 right fem julito in place, unchanged, hgb 9.2, gi aware 09/01 labs noted, hgb 8.8, plt >600, no bleeding 09/02 labs noted, no bleeding, with elev wbc still, no new changes 09/03 meds are noted, no bleeding, labs reviewed hgb 8.6 09/04 no major events, hd as per renal, abx, no bleeding hgb low 09/05 labs are noted, no bleeding, meds have been reviewed 09/06 no new labs no hemolysis, cbc is noted, no bleeding 09/07 meds reviewed, no bleeding, matt rn, permacath functioning well 09/09 meds reviewed, wbc still elevated, as per id recs, cbc noted 09/10 is obtunded, with gutbe in place, labs reviewed 09/11 obtunded, as per id, observe now off abx, labs noted, wbc 19 09/12 cbc is pending, remains on epogen, also off abx 09/13 labs reviewed, no bleeding, elev wbc, no night sweats 09/14 meds noted, no bleeding, wbc 19, hgb 9.5, no night sweats 09/21 obtunded, remains on vent, labs noted, no bleeding, hgb 8.9 09/22 obtunded, labs noted, no bleeding, on vent, unchanged 09/23 unchanges, wbc remains elevated 20k, on abx, on vent 09/24 labs have been reviewed, no bleeding, wbc 15, may need abx 09/25 formula gtube changed, labs noted, remains obtunded, hgb 9.3 09/26 labs have been reviewed, no bleeding, matt rn, no night sweats 09/27 meds reviewed, no bleeding, wbc 14, on abx, remains obtunded 09/28 remains obtunded, no bleeding, wbc better, hgb 8.9, no hemolysis, plt 506 09/30 on colisitn, wbc elevated, cefepime added per id, hgb stable 10/01 labs reviewed, no bleeding, matt rn, no major events noted, wbc 14, hgb 10.6 10/02 labs have been noted, hgb 9.2, wbc 17, on abx, matt rn 10/03 continue on tube feeds, no bleeding, on vent, wbc remains elevated Objective Objective Current Medications Medications (Trade) Dose Ordered Sig/Leonel Route PRN Reason Start Time Stop Time Status Last Admin Dose Admin Acetaminophen (Tylenol) 650 mg Q4H PRN GT Mild Pain (Pain Scale 1-3) 09/21/19 12:45 10/21/19 12:44 09/30/19 05:22 Ampicillin Sodium/ Sulbactam Sodium 3 gm/Sodium Chloride 110 ml @ 220 mls/hr Q24H IVPB 10/02/19 13:00 10/09/19 12:59 10/03/19 13:50 Atorvastatin Calcium (Lipitor) 40 mg BEDTIME GT 08/09/19 21:00 11/07/19 20:59 10/03/19 20:26 Cefepime HCl 500 mg/Dextrose 55 ml @ 110 mls/hr Q24H IVPB 10/02/19 12:00 10/09/19 11:59 10/03/19 12:55 Chlorhexidine Gluconate (Felipa-Hex 2%) 1 applic DAILY@2000 TOPIC 09/12/19 20:00 12/11/19 19:59 10/03/19 20:25 Clonidine HCl (Catapres Tab) 0.1 mg Q4H PRN GT For High Blood Pressure 09/09/19 12:30 12/08/19 05:29 09/15/19 04:10 Dextrose (Dextrose 50%) 25 ml Q30M PRN IV Hypoglycemia 08/09/19 07:30 11/07/19 07:29 Dextrose (Dextrose 50%) 50 ml Q30M PRN IV Hypoglycemia 08/09/19 07:30 11/07/19 07:29 Diphenoxylate HCl/ Atropine (Lomotil) 2.5 mg QID PRN ORAL Diarrhea 09/24/19 08:45 10/24/19 08:44 Epoetin Andreas (Epoetin Andreas(ESRD on dialysis)) 10,000 unit WED-WED-WED SUBQ 09/20/19 21:00 12/19/19 20:59 10/02/19 20:12 Famotidine (Pepcid) 20 mg DAILY GT 08/30/19 09:00 11/28/19 08:59 10/03/19 08:47 Insulin Aspart (NovoLOG) Q6HR SUBQ 09/25/19 18:00 11/07/19 11:29 10/03/19 23:20 Lactobacillus Acidophilus (Culturelle) 1 tab EVERY 12 HOURS GT 10/03/19 21:00 12/13/19 17:59 10/03/19 20:26 Metoprolol Tartrate (Lopressor) 200 mg Q12HR GT 08/09/19 09:00 11/07/19 08:59 10/03/19 20:26 Minoxidil (Loniten) 5 mg DAILY GT 08/09/19 09:00 11/07/19 08:59 10/02/19 09:43 Zinc Oxide (Zinc Oxide) 1 applic EVERY 12 HOURS TOPIC 10/03/19 09:00 11/08/19 17:59 10/03/19 20:27 Last 24 Hour Vital Signs Date Time Temp Pulse Resp B/P (MAP) Pulse Ox O2 Delivery O2 Flow Rate FiO2 10/04/19 07:04 86 14 24 10/04/19 04:37 78 18 24 10/04/19 04:00 24 10/04/19 04:00 Mechanical Ventilator 10/04/19 04:00 98.7 87 17 145/64 (91) 100 10/04/19 03:52 82 10/04/19 02:57 78 16 24 10/04/19 01:20 76 16 24 10/04/19 00:00 Mechanical Ventilator 10/04/19 00:00 97.9 72 17 118/62 (80) 98 10/04/19 00:00 24 10/03/19 23:28 72 10/03/19 22:46 71 22 24 10/03/19 20:48 76 16 24 10/03/19 20:26 93 143/62 10/03/19 20:00 Mechanical Ventilator 10/03/19 20:00 24 10/03/19 20:00 98.4 89 17 156/84 (108) 98 10/03/19 19:46 90 10/03/19 18:50 101 20 24 10/03/19 16:00 Mechanical Ventilator 10/03/19 16:00 24 10/03/19 16:00 98.4 78 19 127/78 (94) 99 10/03/19 15:32 77 10/03/19 15:00 78 16 24 10/03/19 12:00 Mechanical Ventilator 10/03/19 12:00 98.8 81 12 134/61 (85) 97 10/03/19 12:00 24 10/03/19 12:00 82 10/03/19 11:05 87 14 24 10/03/19 08:33 83 10/03/19 08:00 Mechanical Ventilator 10/03/19 08:00 99.5 83 14 140/68 (92) 97 10/03/19 08:00 24 10/03/19 07:10 82 15 24 10/03/19 04:54 77 15 24 10/03/19 04:00 Mechanical Ventilator 10/03/19 04:00 97.9 78 18 157/64 (95) 100 10/03/19 04:00 24 10/03/19 03:35 74 10/03/19 02:44 73 13 Mechanical Ventilator 10/03/19 00:43 71 17 Mechanical Ventilator 10/03/19 00:00 98.2 71 15 127/58 (81) 100 10/03/19 00:00 24 10/03/19 00:00 Mechanical Ventilator 10/02/19 23:33 70 10/02/19 22:38 69 13 Mechanical Ventilator 10/02/19 20:43 68 14 Mechanical Ventilator 10/02/19 20:13 75 135/67 10/02/19 20:00 24 10/02/19 20:00 Mechanical Ventilator 10/02/19 20:00 98.6 78 13 135/67 (89) 100 10/02/19 20:00 76 10/02/19 18:55 76 17 Mechanical Ventilator 10/02/19 17:04 76 16 Mechanical Ventilator 10/02/19 16:00 24 10/02/19 16:00 75 10/02/19 16:00 Mechanical Ventilator 10/02/19 16:00 98.2 76 12 141/69 (93) 100 10/02/19 15:47 81 21 Mechanical Ventilator 10/02/19 13:18 76 15 Mechanical Ventilator 24 10/02/19 12:00 24 10/02/19 12:00 97.7 68 12 126/58 (80) 97 10/02/19 12:00 Mechanical Ventilator 10/02/19 12:00 69 10/02/19 10:59 69 12 100 Mechanical Ventilator 24 70 12 24 10/02/19 09:43 77 137/61 10/02/19 09:43 137/61 10/02/19 09:12 68 12 24 10/02/19 08:02 24 10/02/19 08:00 Mechanical Ventilator 10/02/19 08:00 74 10/02/19 07:54 98.4 77 13 137/61 (86) 99 Intake and Output 10/03/19 10/04/19 19:00 07:00 Intake Total 845 ml 630 ml Output Total 200 ml 2500 ml Balance 645 ml -1870 ml Free Water 20 ml 30 ml IV Total 165 ml Tube Feeding 600 ml 600 ml Other 60 ml Stool Total 200 ml Hemodialysis UF 2500 ml # Voids 1 Labs Test 10/01/19 16:30 10/01/19 18:15 10/02/19 00:08 10/02/19 07:04 White Blood Count 14.4 K/UL (4.8-10.8) Red Blood Count 4.16 M/UL (4.70-6.10) Hemoglobin 10.6 G/DL (14.2-18.0) Hematocrit 34.1 % (42.0-52.0) Mean Corpuscular Volume 82 FL (80-99) Mean Corpuscular Hemoglobin 25.4 PG (27.0-31.0) Mean Corpuscular Hemoglobin Concent 31.1 G/DL (32.0-36.0) Red Cell Distribution Width 17.2 % (11.6-14.8) Platelet Count 469 K/UL (150-450) Mean Platelet Volume 6.0 FL (6.5-10.1) Neutrophils (%) (Auto) 78.8 % (45.0-75.0) Lymphocytes (%) (Auto) 10.5 % (20.0-45.0) Monocytes (%) (Auto) 6.7 % (1.0-10.0) Eosinophils (%) (Auto) 3.1 % (0.0-3.0) Basophils (%) (Auto) 0.9 % (0.0-2.0) Sodium Level 124 MMOL/L (136-145) Potassium Level 3.7 MMOL/L (3.5-5.1) Chloride Level 93 MMOL/L (98-107) Carbon Dioxide Level 28 MMOL/L (21-32) Anion Gap 3 mmol/L (5-15) Blood Urea Nitrogen 44 mg/dL (7-18) Creatinine 3.0 MG/DL (0.55-1.30) Estimat Glomerular Filtration Rate 20.3 mL/min (>60) Glucose Level 223 MG/DL (74-106) Calcium Level 9.1 MG/DL (8.5-10.1) POC Whole Blood Glucose 241 MG/DL (74-106) Test 10/02/19 08:05 10/02/19 13:01 10/02/19 18:42 10/03/19 00:18 White Blood Count 15.8 K/UL (4.8-10.8) Red Blood Count 4.34 M/UL (4.70-6.10) Hemoglobin 10.6 G/DL (14.2-18.0) Hematocrit 35.8 % (42.0-52.0) Mean Corpuscular Volume 82 FL (80-99) Mean Corpuscular Hemoglobin 24.5 PG (27.0-31.0) Mean Corpuscular Hemoglobin Concent 29.7 G/DL (32.0-36.0) Red Cell Distribution Width 16.7 % (11.6-14.8) Platelet Count 502 K/UL (150-450) Mean Platelet Volume 5.8 FL (6.5-10.1) Neutrophils (%) (Auto) 67.9 % (45.0-75.0) Lymphocytes (%) (Auto) 15.1 % (20.0-45.0) Monocytes (%) (Auto) 9.1 % (1.0-10.0) Eosinophils (%) (Auto) 6.7 % (0.0-3.0) Basophils (%) (Auto) 1.2 % (0.0-2.0) Sodium Level 133 MMOL/L (136-145) Potassium Level 4.2 MMOL/L (3.5-5.1) Chloride Level 94 MMOL/L (98-107) Carbon Dioxide Level 27 MMOL/L (21-32) Anion Gap 12 mmol/L (5-15) Blood Urea Nitrogen 57 mg/dL (7-18) Creatinine 3.6 MG/DL (0.55-1.30) Estimat Glomerular Filtration Rate 16.5 mL/min (>60) Glucose Level 150 MG/DL (74-106) Calcium Level 9.8 MG/DL (8.5-10.1) POC Whole Blood Glucose 181 MG/DL (74-106) 195 MG/DL (74-106) Test 10/03/19 04:40 10/03/19 05:27 10/03/19 11:33 10/03/19 17:46 White Blood Count 16.7 K/UL (4.8-10.8) Red Blood Count 3.72 M/UL (4.70-6.10) Hemoglobin 9.2 G/DL (14.2-18.0) Hematocrit 30.1 % (42.0-52.0) Mean Corpuscular Volume 81 FL (80-99) Mean Corpuscular Hemoglobin 24.7 PG (27.0-31.0) Mean Corpuscular Hemoglobin Concent 30.5 G/DL (32.0-36.0) Red Cell Distribution Width 16.6 % (11.6-14.8) Platelet Count 459 K/UL (150-450) Mean Platelet Volume 5.7 FL (6.5-10.1) Neutrophils (%) (Auto) 64.0 % (45.0-75.0) Lymphocytes (%) (Auto) 15.4 % (20.0-45.0) Monocytes (%) (Auto) 8.3 % (1.0-10.0) Eosinophils (%) (Auto) 11.2 % (0.0-3.0) Basophils (%) (Auto) 1.2 % (0.0-2.0) Sodium Level 133 MMOL/L (136-145) Potassium Level 4.2 MMOL/L (3.5-5.1) Chloride Level 95 MMOL/L (98-107) Carbon Dioxide Level 27 MMOL/L (21-32) Anion Gap 11 mmol/L (5-15) Blood Urea Nitrogen 74 mg/dL (7-18) Creatinine 4.3 MG/DL (0.55-1.30) Estimat Glomerular Filtration Rate 13.4 mL/min (>60) Glucose Level 118 MG/DL (74-106) Calcium Level 8.9 MG/DL (8.5-10.1) POC Whole Blood Glucose 105 MG/DL (74-106) 166 MG/DL (74-106) 138 MG/DL (74-106) Test 10/03/19 23:18 10/04/19 05:26 POC Whole Blood Glucose 137 MG/DL (74-106) Micro Microbiology Date/Time Source Procedure Growth Status 10/03/19 16:50 Nasopharynx SARS-CoV-2 RdRp Gene Assay - Final Complete Height (Feet): 5 Height (Inches): 10.00 Weight (Pounds): 122 Objective Physical Exam General Appearance: nad, Chronically Ill Head: normocephalic Eyes: right eye PERRL - Will not open left eye ENT: moist mucus membranes Neck: other - submandibular mass R, fairly rigid with resistance to rotation to L, tracheotomy Respiratory: decreased breath sounds, crackles, other - pacemaker, vent+ Cardiovascular: regular rate, rhythm, edema - anasarca Gastrointestinal: non tender, distended, other - G tube Genitourinary: other Musculoskeletal: other - Contractures all extremities Neurologic: sensory intact, motor weakness, responsive Psychiatric: other Skin: Decubitus/Ulcer - Stage III right elbow, stage III left elbow, stage II sacrum, stage III scrotum, warm/dry Fitz Campos MD Oct 04, 2019 07:40
--- NOTE | 2019-10-04 07:46 | NUR ---
NURSE NOTES: Received report from TAMICA Love. Patient in bed resting no active s/s cardiac, respiratory distress noticed at this time. Patient obtunded, V-paced 80. Endorsed 2.5L out HD yesterday 10/02. Subclavian PermCath site intact and patent, trach to vent AC 12 Vt 550 FiO2 24% O2 sat 100%. Rectal tube draining well to gravity. Bed in lowest position, side rails upx3, call light within reach, bed alarm on. Will continue to monitor.
--- NOTE | 2019-10-04 07:46 | NUR ---
NURSE HAND-OFF REPORT: Important Events on Shift: no change Patient Status: stable Diet: Osmolite Pending Orders: N Pending Results/Labs: Y Pending MD notification: N Latest Vital Signs: Temperature 98.7 , Pulse 86 , B/P 145 /64 , Respiratory Rate 14 , O2 SAT 100 , Mechanical Ventilator, O2 Flow Rate 15.0 . Vital Sign Comment: EKG Rhythm: Sinus Rhythm with BBB Rhythm change?: N MD Notified?: N - MD Response: Latest Delacruz Fall Score: 70 Fall Risk: High Risk Safety Measures: Call light Within Reach, Bed Alarm Zone 1, Side Rails Side Rails x3, Bed position Low and Locked. Fall Precautions: Yellow Socks Report given to TAMICA العلي.
[2019-10-04 08:00] VITALS: BP 142/68
[2019-10-04] MEDS: Metoprolol Tartrate 100mg tab GT SCH ×2 (08:34→21:19)
[2019-10-04] MEDS: Lactobacillus-GG tablet GT SCH ×2 (08:34→21:19)
[2019-10-04] MEDS: Zinc Oxide Oint 2oz TOPIC SCH ×2 (08:34→21:31)
[2019-10-04] MEDS: Minoxidil 2.5mg tab GT SCH (08:34)
--- NOTE | 2019-10-04 09:33 | General Progress Note ---
Assessment/Plan Assessment/Plan: IMPRESSION: 1. anemia. 2. fevers improved 3. Leukocytosis. 4. hypotension 5. Acute on chronic renal failure. 6. Hyponatremia. 7. Severe protein-calorie malnutrition. 8. Significantly elevated C-reactive protein concerning for infectious etiology. 9. Tracheostomy, G-tube. 10. Ventilator dependence. 11. anasarca 12. Hematuria 13. V pacing 14. hyponatremia PLAN chronic care; unable to place care noted on vent/ no wean monitor labs ID follow up dialysis ongoing prognosis poor impression, plan, and exam edited and reviewed in detail care discussed with RN Subjective Allergies: Coded Allergies: No Known Allergies (Unverified , 06/10/19) Subjective remains ill on vent/ no change on HD vitals noted Objective Last 24 Hour Vital Signs Date Time Temp Pulse Resp B/P (MAP) Pulse Ox O2 Delivery O2 Flow Rate FiO2 10/04/19 09:05 75 12 24 10/04/19 08:34 86 142/68 10/04/19 08:34 142/68 10/04/19 08:00 98.8 86 17 142/68 (92) 100 10/04/19 07:04 86 14 24 10/04/19 04:37 78 18 24 10/04/19 04:00 24 10/04/19 04:00 Mechanical Ventilator 10/04/19 04:00 98.7 87 17 145/64 (91) 100 10/04/19 03:52 82 10/04/19 02:57 78 16 24 10/04/19 01:20 76 16 24 10/04/19 00:00 Mechanical Ventilator 10/04/19 00:00 97.9 72 17 118/62 (80) 98 10/04/19 00:00 24 10/03/19 23:28 72 10/03/19 22:46 71 22 24 10/03/19 20:48 76 16 24 10/03/19 20:26 93 143/62 10/03/19 20:00 Mechanical Ventilator 10/03/19 20:00 24 10/03/19 20:00 98.4 89 17 156/84 (108) 98 10/03/19 19:46 90 10/03/19 18:50 101 20 24 10/03/19 16:00 Mechanical Ventilator 10/03/19 16:00 24 10/03/19 16:00 98.4 78 19 127/78 (94) 99 10/03/19 15:32 77 10/03/19 15:00 78 16 24 10/03/19 12:00 Mechanical Ventilator 10/03/19 12:00 98.8 81 12 134/61 (85) 97 10/03/19 12:00 24 10/03/19 12:00 82 10/03/19 11:05 87 14 24 Intake and Output 10/03/19 10/04/19 19:00 07:00 Intake Total 845 ml 630 ml Output Total 200 ml 2700 ml Balance 645 ml -2070 ml Free Water 20 ml 30 ml IV Total 165 ml Tube Feeding 600 ml 600 ml Other 60 ml Stool Total 200 ml 200 ml Hemodialysis UF 2500 ml # Voids 1 Laboratory Tests 10/03/19 11:33: POC Whole Blood Glucose 166H 10/03/19 17:46: POC Whole Blood Glucose 138H 10/03/19 23:18: POC Whole Blood Glucose [Pending] 10/04/19 05:26: POC Whole Blood Glucose 137H Height (Feet): 5 Height (Inches): 10.00 Weight (Pounds): 122 Objective GENERAL: Ill-appearing male, chronically debilitated. HEENT: Tracheostomy in midline. Questionable fullness in the submandibular region. LUNGS: Coarse breath sounds. reduced breath sounds CARDIAC: S1, S2. Regular rate and rhythm. ABDOMEN: Soft. G-tube. EXTREMITIES: With noted edema. NEUROLOGICAL: Poorly responsive, weak diffusely. Kain Ramirez MD Oct 04, 2019 09:33
--- NOTE | 2019-10-04 11:05 | Infectious Diseases Prog Note ---
"Assessment/Plan Assessment/Plan antibiotics : cefepime .. - unasyn 10.01. - A 1. acenitobacter | proteus pneumonia 2. respiratory failure 3. leucocytosis 4. COVID 19 test negative x 2 5. renal failure on HD P 1. continue unasyn 4 more days 2. continue cefepime 3 more days 3. will follow up cultures Subjective ROS Limited/Unobtainable: Yes Allergies: Coded Allergies: No Known Allergies (Unverified , 06/10/19) Objective Last 24 Hour Vital Signs Date Time Temp Pulse Resp B/P (MAP) Pulse Ox O2 Delivery O2 Flow Rate FiO2 10/04/19 10:52 72 12 24 10/04/19 09:05 75 12 24 10/04/19 08:34 86 142/68 10/04/19 08:34 142/68 10/04/19 08:00 Mechanical Ventilator 10/04/19 08:00 24 10/04/19 08:00 98.8 86 17 142/68 (92) 100 10/04/19 08:00 86 10/04/19 07:04 86 14 24 10/04/19 04:37 78 18 24 10/04/19 04:00 24 10/04/19 04:00 Mechanical Ventilator 10/04/19 04:00 98.7 87 17 145/64 (91) 100 10/04/19 03:52 82 10/04/19 02:57 78 16 24 10/04/19 01:20 76 16 24 10/04/19 00:00 Mechanical Ventilator 10/04/19 00:00 97.9 72 17 118/62 (80) 98 10/04/19 00:00 24 10/03/19 23:28 72 10/03/19 22:46 71 22 24 10/03/19 20:48 76 16 24 10/03/19 20:26 93 143/62 10/03/19 20:00 Mechanical Ventilator 10/03/19 20:00 24 10/03/19 20:00 98.4 89 17 156/84 (108) 98 10/03/19 19:46 90 10/03/19 18:50 101 20 24 10/03/19 16:00 Mechanical Ventilator 10/03/19 16:00 24 10/03/19 16:00 98.4 78 19 127/78 (94) 99 10/03/19 15:32 77 10/03/19 15:00 78 16 24 10/03/19 12:00 Mechanical Ventilator 10/03/19 12:00 98.8 81 12 134/61 (85) 97 10/03/19 12:00 24 10/03/19 12:00 82 10/03/19 11:05 87 14 24 Height (Feet): 5 Height (Inches): 10.00 Weight (Pounds): 122 HEENT: status post trach Respiratory/Chest: lungs clear Cardiovascular: normal rate, regular rhythm, no gallop/murmur Abdomen: soft, non tender, other - GT Extremities: no edema, other - right subclavian Microbiology Date/Time Source Procedure Growth Status 10/03/19 16:50 Nasopharynx SARS-CoV-2 RdRp Gene Assay - Final Complete Laboratory Tests Test 10/03/19 11:33 10/03/19 17:46 10/03/19 23:18 10/04/19 05:26 POC Whole Blood Glucose 166 MG/DL (74-106) H 138 MG/DL (74-106) H Pending 137 MG/DL (74-106) H Current Medications Medications (Trade) Dose Ordered Sig/Leonel Route PRN Reason Start Time Stop Time Status Last Admin Dose Admin Acetaminophen (Tylenol) 650 mg Q4H PRN GT Mild Pain (Pain Scale 1-3) 09/21/19 12:45 10/21/19 12:44 09/30/19 05:22 Ampicillin Sodium/ Sulbactam Sodium 3 gm/Sodium Chloride 110 ml @ 220 mls/hr Q24H IVPB 10/02/19 13:00 10/09/19 12:59 10/03/19 13:50 Atorvastatin Calcium (Lipitor) 40 mg BEDTIME GT 08/09/19 21:00 11/07/19 20:59 10/03/19 20:26 Cefepime HCl 500 mg/Dextrose 55 ml @ 110 mls/hr Q24H IVPB 10/02/19 12:00 10/09/19 11:59 10/03/19 12:55 Chlorhexidine Gluconate (Felipa-Hex 2%) 1 applic DAILY@2000 TOPIC 09/12/19 20:00 12/11/19 19:59 10/03/19 20:25 Clonidine HCl (Catapres Tab) 0.1 mg Q4H PRN GT For High Blood Pressure 09/09/19 12:30 12/08/19 05:29 09/15/19 04:10 Dextrose (Dextrose 50%) 25 ml Q30M PRN IV Hypoglycemia 08/09/19 07:30 11/07/19 07:29 Dextrose (Dextrose 50%) 50 ml Q30M PRN IV Hypoglycemia 08/09/19 07:30 11/07/19 07:29 Diphenoxylate HCl/ Atropine (Lomotil) 2.5 mg QID PRN ORAL Diarrhea 09/24/19 08:45 10/24/19 08:44 Epoetin Andreas (Epoetin Andreas(ESRD on dialysis)) 10,000 unit SUBQ 09/20/19 21:00 12/19/19 20:59 10/02/19 20:12 Famotidine (Pepcid) 20 mg DAILY GT 08/30/19 09:00 11/28/19 08:59 10/04/19 08:34 Insulin Aspart (NovoLOG) Q6HR SUBQ 09/25/19 18:00 11/07/19 11:29 10/03/19 23:20 Lactobacillus Acidophilus (Culturelle) 1 tab EVERY 12 HOURS GT 10/03/19 21:00 12/13/19 17:59 10/04/19 08:34 Metoprolol Tartrate (Lopressor) 200 mg Q12HR GT 08/09/19 09:00 11/07/19 08:59 10/04/19 08:34 Minoxidil (Loniten) 5 mg DAILY GT 08/09/19 09:00 11/07/19 08:59 10/04/19 08:34 Zinc Oxide (Zinc Oxide) 1 applic EVERY 12 HOURS TOPIC 10/03/19 09:00 11/08/19 17:59 10/04/19 08:34 Farnaz Lyle MD Oct 04, 2019 11:05"
[2019-10-04] MEDS: Cefepime HCl 500 MG in D5W 55 ML IVPB SCH (11:24)
[2019-10-04 12:00] VITALS: BP 104/70
--- NOTE | 2019-10-04 12:20 | NUR ---
NURSE NOTES: Per Dr. Ramirez BMP today, order noted, entered, carried out.
--- NOTE | 2019-10-04 12:27 | NUR ---
CASE MANAGEMENT: REVIEW SI: ESRD on HD . CHRONIC LEUKOCYTOSIS T 98.4 HR 68 RR 12 BP 105/47 SAT 98% MECH VENT FIO2 24 WBC 16.7 H/H 9.2/30.6 GLUCOSE 137 REPEAT COVID TEST -- NEGATIVE IS: COLISTIN INH Q12HR EPOETIN SUBQ QMWF HEPARIN IV PRN HD NOVOLOG SUBQ Q6HR HD NEEDED STEP DOWN UNIT STATUS DCP: PATIENT HAS BEEN ACCEPTED TO [facility]; WITH OUTPATIENT HD AT [facility] PENDING [facility] FROM [facility] PATIENT HAS BEEN ACCEPTED TO [facility] WITH IN-HOUSE HD; PENDING WBC WITHIN NORMAL LIMITS PATIENT HAS BEEN ACCEPTED TO [facility] WITH OUTPATIENT HD [facility] PENDING [facility]
--- NOTE | 2019-10-04 12:48 | Surgery Progress Note ---
Surgery Progress Note Subjective Procedure Performed Right femoral temporary hemodialysis catheter removal Additional Comments no acute event labs reviewed no n/v/f/c Objective Last 24 Hour Vital Signs Date Time Temp Pulse Resp B/P (MAP) Pulse Ox O2 Delivery O2 Flow Rate FiO2 10/04/19 12:42 75 12 24 10/04/19 12:00 24 10/04/19 12:00 Mechanical Ventilator 10/04/19 12:00 99.1 74 18 104/70 (81) 100 10/04/19 10:52 72 12 24 10/04/19 09:05 75 12 24 10/04/19 08:34 86 142/68 10/04/19 08:34 142/68 10/04/19 08:00 Mechanical Ventilator 10/04/19 08:00 24 10/04/19 08:00 98.8 86 17 142/68 (92) 100 10/04/19 08:00 86 10/04/19 07:04 86 14 24 10/04/19 04:37 78 18 24 10/04/19 04:00 24 10/04/19 04:00 Mechanical Ventilator 10/04/19 04:00 98.7 87 17 145/64 (91) 100 10/04/19 03:52 82 10/04/19 02:57 78 16 24 10/04/19 01:20 76 16 24 10/04/19 00:00 Mechanical Ventilator 10/04/19 00:00 97.9 72 17 118/62 (80) 98 10/04/19 00:00 24 10/03/19 23:28 72 10/03/19 22:46 71 22 24 10/03/19 20:48 76 16 24 10/03/19 20:26 93 143/62 10/03/19 20:00 Mechanical Ventilator 10/03/19 20:00 24 10/03/19 20:00 98.4 89 17 156/84 (108) 98 10/03/19 19:46 90 10/03/19 18:50 101 20 24 10/03/19 16:00 Mechanical Ventilator 10/03/19 16:00 24 10/03/19 16:00 98.4 78 19 127/78 (94) 99 10/03/19 15:32 77 10/03/19 15:00 78 16 24 I&O Intake and Output 10/03/19 10/04/19 19:00 07:00 Intake Total 845 ml 630 ml Output Total 200 ml 2700 ml Balance 645 ml -2070 ml Free Water 20 ml 30 ml IV Total 165 ml Tube Feeding 600 ml 600 ml Other 60 ml Stool Total 200 ml 200 ml Hemodialysis UF 2500 ml # Voids 1 Dressing: other Wound: other Cardiovascular: RSR Respiratory: decreased breath sounds Abdomen: soft, non-tender, present bowel sounds Extremities: no tenderness, no cyanosis Laboratory Tests Test 10/03/19 17:46 10/03/19 23:18 10/04/19 05:26 10/04/19 11:24 POC Whole Blood Glucose 138 MG/DL (74-106) H Pending 137 MG/DL (74-106) H Pending Plan Problems: (1) Anemia (2) Hyponatremia (3) Leukocytosis Assessment & Plan: Tracheostomy, left chest pacemaker are again demonstrated. There is bilateral interstitial and airspace disease and bilateral pleural fluid again demonstrated. This appears more severe than on the prior study. Bilateral interstitial and airspace infiltrates versus edema. Bilateral pleural effusions Leukocytosis, anemia, tachycardia, abnormal labs. Wound evaluated and likely etiology of patient's sepsis. Leukocytosis etiology work-up antibiotics per infectious disease Appreciate nephrology input transfuse with dialysis We will follow with recommendations thank you allowing participation's care plan HD access temp HD discussed with medical teams line okay HD as per renal persistent leukocytosis flow cyto noted improving trending down right fem line removed wbc trending down (4) Ventilator dependent (5) Right lower lobe pneumonia (6) Hypokalemia (7) Hyperkalemia (8) Anasarca (9) Decubitus skin ulcer Assessment & Plan: pt presented on admission with generalized edemae.Skin assessed under tracheostomy and no areas of concerns noted. GT Insertion is marginally erythematous with small amt slough at stoma. Unstageable Pressure Injury R elbow. Base of wound is 100% yellow slough, Borders are erythematous. Wound oozing small amt haemopurulent exudate.Darker skin tone without elevation in skin temp or erythema periwound. Pt's penis and scrotum are grossly edematous and enlarged and weeping serous exudate from numerous sites both from penis and scrotum. Two small open wounds noted at base of at base of shaft of penis ,and contreras aspect of scrotum. Both wounds oozing large amt sanguineous and serosanguineous exudate. Multiple open wounds with Biofilm at base of each wounds noted to contreras/lateral,inferior and posterior aspects of scrotum. These wounds noted to be oozing moderate amts of serosanguineous exudate. Hypertrophic scar with scattered areas of hyperpigmentation noted to Sacrum. DTPI noted to L Buttocks (L)7cm x (W)9cm. Base of wound is purple and indurated.Darker skin tone without erythema, induration or fluctuance R and L ischial tuberosities. Both heels are boggy with non-blanchable erythema. Tx.Plan: Cleanse wound R elbow with Saline. Apply TheraHoney, Apply Moisture Barrier Paste periwound. Cover with Optifoam drsg.Change Daily and prn. Wash GT site with soap and water.Pat dry. Apply Zinc Oxide Paste to GT site Daily. Leave Open to Air. Apply Zinc Oxide Paste to entire Scrotum, Place ABD pads to R and L lateral, and posterior aspects of scrotum TWICE daily. Apply Cavilon Skin Barrier to malleoli and both Heels. Cover each site with Optifoam drsgs. Change every 7 days and prn. Reposition at least every 2hours or as tolerated. Off-load heels with Pillows. APM/BECCA Mattress overlay. (10) Malnutrition Assessment & Plan: DAILY ESTIMATED NEEDS: Needs based on Renal, critical care, wound/ 61kg 22-30 kcals/kg 1044-2569 total kcals 1.25-2 g protein/kg 76-122 g total protein Fluid per MD, now on HD NUTRITION DIAGNOSIS: * Swallowing difficulty R/T respiratory failure, dysphagia as evidenced by trach/vent dep, PEG dep * Increased kcal/prot needs R/T wound healing as evidenced by admitted w/ multiple pressure injuries including full thickness wounds at junction of Shaft of penis, dorsal scrotum, R elbow, and DTPI @ L buttocks. CURRENT TF:Osmolite 1.2 @ 60ml/hr x 20 hrs + Garo BID ENTERAL NUTRITION RECOMMENDATIONS: Vital AF 1.2 @ 60ml/hr x 20 hrs to provide 1200ml, 1440kcal, 90g prot, 973ml free water * Rec 20 hr run time for GI rest. -> W/ improved GI status, rec Vital AF 1.2, an elemental and carb controlled TF -> monitor lytes and renal fxn closely, monitor need for renal TF -> TF @ goal will provide 1642mg K and 2025mg Phos -> HOB over 30 degrees/ water flush per MD -------- Trial of Osmolite 1.2 continue for now- Goal of 60ml/hr for 20 hrs (4 hrs bowel rest) to provide 1200ml, 1440 kcal, 67g pro, 984ml free H2O, -> Rec to add prosource 1 pack daily (11g pro) to better meet est pro needs. -> Monitor BG, K closely. Pt would require increased insulin coverage as TF at goal would provide 56g more carbs per day. ADDITIONAL RECOMMENDATIONS: * Per SNF: HT=63" EW=934 lbs (vs EMR wt of 166lbs) -> obtain re-calibrated bedscale wt, rec daily wt monitoring * Wound healing: con't Nephrovite + Garo BID/ Vit C dosing per Nephro * Monitor renal fxn and lytes closely w/ non-renal TF ->K low, phos wnl;updated mag level; rec increased insulin w/ BG labs * Daily wts w/ drop to 118-20 lbs, rec to recalibrate for accurate CBW * Consider DC Miralax if medically appropriate: +rectal tube (11) Uremia (12) CKD (chronic kidney disease) stage 5, GFR less than 15 ml/min (13) Colon distention Assessment & Plan: discussed with GI likely functional as having lots of loose bm rectal tube kub f/u s/p colonoscopy - findings reviewed with GI improved cont diet as tolerated Marked distention of the sigmoid colon. 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 No evidence of bowel wall thickening or pneumatosis 12 mm focus of contrast enhancement in the right pectineus muscle. While nonspecific in appearance, appearance raises concern for a possible pseudoaneurysm. Ill- defined thickening of the pectus medius muscle could indicate some intramuscular hemorrhage. The above findings were phoned to Dr. Urias at the time of interpretation Large bilateral pleural effusions Hazy pulmonary parenchymal opacities as well as dense consolidative opacities most likely represent pulmonary edema, but could represent pneumonia Evidence of anasarca elsewhere, with generalized edema of the subcutaneous fat Bladder wall thickening, raises concern for cystitis. Avalos catheter in place Colonic diverticulosis. No evidence of diverticulitis. Tracheostomy Pacemaker Gastrostomy Jonathan Urias Oct 04, 2019 12:48
--- NOTE | 2019-10-04 12:49 | NUR ---
INSURANCE UPDATED CLINICALS AND REVIEWS HAVE BEEN FAXED TO: [facility] REF# [id number] RIC:HARPER P:[phone] F:[phone]
--- NOTE | 2019-10-04 12:59 | Nephrology Progress Note ---
Assessment/Plan Plan MOF ESRD - HD TTS. Anemia of CKD -TUYET. Subjective Subjective Obtunded. Objective Objective Last 24 Hour Vital Signs Date Time Temp Pulse Resp B/P (MAP) Pulse Ox O2 Delivery O2 Flow Rate FiO2 10/04/19 12:42 75 12 24 10/04/19 12:00 24 10/04/19 12:00 Mechanical Ventilator 10/04/19 12:00 99.1 74 18 104/70 (81) 100 10/04/19 10:52 72 12 24 10/04/19 09:05 75 12 24 10/04/19 08:34 86 142/68 10/04/19 08:34 142/68 10/04/19 08:00 Mechanical Ventilator 10/04/19 08:00 24 10/04/19 08:00 98.8 86 17 142/68 (92) 100 10/04/19 08:00 86 10/04/19 07:04 86 14 24 10/04/19 04:37 78 18 24 10/04/19 04:00 24 10/04/19 04:00 Mechanical Ventilator 10/04/19 04:00 98.7 87 17 145/64 (91) 100 10/04/19 03:52 82 10/04/19 02:57 78 16 24 10/04/19 01:20 76 16 24 10/04/19 00:00 Mechanical Ventilator 10/04/19 00:00 97.9 72 17 118/62 (80) 98 10/04/19 00:00 24 10/03/19 23:28 72 10/03/19 22:46 71 22 24 10/03/19 20:48 76 16 24 10/03/19 20:26 93 143/62 10/03/19 20:00 Mechanical Ventilator 10/03/19 20:00 24 10/03/19 20:00 98.4 89 17 156/84 (108) 98 10/03/19 19:46 90 10/03/19 18:50 101 20 24 10/03/19 16:00 Mechanical Ventilator 10/03/19 16:00 24 10/03/19 16:00 98.4 78 19 127/78 (94) 99 10/03/19 15:32 77 10/03/19 15:00 78 16 24 Intake and Output 10/03/19 10/04/19 19:00 07:00 Intake Total 845 ml 630 ml Output Total 200 ml 2700 ml Balance 645 ml -2070 ml Free Water 20 ml 30 ml IV Total 165 ml Tube Feeding 600 ml 600 ml Other 60 ml Stool Total 200 ml 200 ml Hemodialysis UF 2500 ml # Voids 1 Laboratory Tests 10/03/19 17:46: POC Whole Blood Glucose 138H 10/03/19 23:18: POC Whole Blood Glucose [Pending] 10/04/19 05:26: POC Whole Blood Glucose 137H 10/04/19 11:24: POC Whole Blood Glucose [Pending] Height (Feet): 5 Height (Inches): 10.00 Weight (Pounds): 122 Objective CV RR Trach clean Lungs CTA New Perma Cath RIJ. Abd SNT. BS + E No CCE Erica Pichardo MD Oct 04, 2019 12:59
[2019-10-04] MEDS: Ampicillin/Sulbactam Sod 3 GM in NS 110 ML IVPB SCH (13:09)
--- NOTE | 2019-10-04 13:20 | NUR ---
NURSE NOTES: Per Dr. Pichardo, [facility] BMP just prior to HD MD clarified HD on 10/05/19, order edited , entered.
--- NOTE | 2019-10-04 13:30 | NUR ---
NURSE NOTES: Called [facility] nephrology tele: [phone], spoke with Bertin and informed patient schedule for HD tomorrow 10/05/[address] Pichardo.
[2019-10-04] MEDS ORDERED: NS 275ml ONE (14:28)
[2019-10-04 16:00] VITALS: BP 147/63
[2019-10-04] MEDS: Acetaminophen 650mg/20.3ml GT PRN (16:25)
--- NOTE | 2019-10-04 18:58 | NUR ---
RESPIRATORY NOTE: Received pt on AC 12, 550VT, 24%, PEEP +5. Pt is trach-dependent w/ a cuffed, Portex 8 tube. Pt obtunded. B/S ovi. rhonchi, sxn small amounts of thick, pale-yellow secretions. Vent plugged into red outlet, ambubag at bedside. Pt in no apparent distress at this time. Will continue plan of care.
--- NOTE | 2019-10-04 19:13 | NUR ---
NURSE HAND-OFF REPORT: Important Events on Shift: NA Patient Status: Stable Diet: Osmolite 1.2 @ 60ml/h Pending Orders: na Pending Results/Labs:BMP Pending MD notification: na Latest Vital Signs: Temperature 97.7 , Pulse 80 , B/P 147 /63 , Respiratory Rate 13 , O2 SAT 100 , Mechanical Ventilator, O2 Flow Rate 15.0 . Vital Sign Comment: stable EKG Rhythm: V-Paced Rhythm change?: N MD Notified?: N - MD Response: Latest Delacruz Fall Score: 70 Fall Risk: High Risk Safety Measures: Call light Within Reach, Bed Alarm Zone 1, Side Rails Side Rails x3, Bed position Low and Locked. Fall Precautions: Yellow Socks Report given to TAMICA Atkinson.
--- NOTE | 2019-10-04 19:27 | NUR ---
NURSE NOTES: Received report from TAMICA العلي, pt. in bed obtunded, no signs or symptoms of acute cardiac or respiratory distress noted, call light within easy reach, bed alarm on, side rails up x's3 and safety brakes engaged, bed in low position, pt. appears to be tolerating current vent settings well- AC 12, TV 550, fio2 at 24% and peep 5- no distress noted, pt. appears to be tolerating current feeding via g tube Osmolite 1.2 @ 60cc/hr- no residual noted, rectal tube intact and draining to gravity, pt. is Anuric, pt. appears clean and dry, Rt. subclavian Perma cath for HD intact, Left hand 22G IV intact and patent, safety measures continued, will continue with plan of care.
[2019-10-04 19:39] LABS: ANION GAP 15 mmol/L (5-15); BLOOD UREA NITROGEN 56 mg/dL (7-18); CALCIUM 8.6 MG/DL (8.5-10.1); CARBON DIOXIDE 26 MMOL/L (21-32); CHLORIDE 98 MMOL/L (98-107); CREATININE 3.5 MG/DL (0.55-1.30); POTASSIUM 4.5 MMOL/L (3.5-5.1); SODIUM 139 MMOL/L (136-145)
[2019-10-04 20:00] VITALS: BP 118/56
--- NOTE | 2019-10-04 20:45 | General Progress Note ---
Assessment/Plan Assessment/Plan: Assessment - abdominal distention, due to colonic dysmotility, - colonoscopy negative to hepatic flexure - diarrhea - presumed TF related - abnormal LFT - Anemia - leukocytosis - stool OB (+) - EGD --> gastritis - Renal failure - Anasarca - resp failure, trach - dysphagia, GT - encephalopathy, contracted - poor px Recommendations - continue TF - rectal tube - roll side to side as feasible (hard due to severe contractions) - Elevate HOB - f/u labs - PPI - abx - supportive care Subjective Allergies: Coded Allergies: No Known Allergies (Unverified , 06/10/19) Subjective above noted tolerating feeds liquid stool 200 - 400 cc/d Objective Last 24 Hour Vital Signs Date Time Temp Pulse Resp B/P (MAP) Pulse Ox O2 Delivery O2 Flow Rate FiO2 10/04/19 18:53 80 13 24 10/04/19 17:15 76 14 24 10/04/19 16:55 97.7 10/04/19 16:00 82 10/04/19 16:00 24 10/04/19 16:00 Mechanical Ventilator 10/04/19 16:00 97.7 83 18 147/63 (91) 100 10/04/19 14:59 80 16 24 10/04/19 12:42 75 12 24 10/04/19 12:00 24 10/04/19 12:00 74 10/04/19 12:00 Mechanical Ventilator 10/04/19 12:00 99.1 74 18 104/70 (81) 100 10/04/19 10:52 72 12 24 10/04/19 09:05 75 12 24 10/04/19 08:34 86 142/68 10/04/19 08:34 142/68 10/04/19 08:00 Mechanical Ventilator 10/04/19 08:00 24 10/04/19 08:00 98.8 86 17 142/68 (92) 100 10/04/19 08:00 86 10/04/19 07:04 86 14 24 10/04/19 04:37 78 18 24 10/04/19 04:00 24 10/04/19 04:00 Mechanical Ventilator 10/04/19 04:00 98.7 87 17 145/64 (91) 100 10/04/19 03:52 82 10/04/19 02:57 78 16 24 10/04/19 01:20 76 16 24 10/04/19 00:00 Mechanical Ventilator 10/04/19 00:00 97.9 72 17 118/62 (80) 98 10/04/19 00:00 24 10/03/19 23:28 72 10/03/19 22:46 71 22 24 10/03/19 20:48 76 16 24 Intake and Output 10/03/19 10/04/19 19:00 07:00 Intake Total 845 ml 630 ml Output Total 200 ml 2700 ml Balance 645 ml -2070 ml Free Water 20 ml 30 ml IV Total 165 ml Tube Feeding 600 ml 600 ml Other 60 ml Stool Total 200 ml 200 ml Hemodialysis UF 2500 ml # Voids 1 Laboratory Tests 10/03/19 23:18: POC Whole Blood Glucose [Pending] 10/04/19 05:26: POC Whole Blood Glucose 137H 10/04/19 11:24: POC Whole Blood Glucose [Pending] 10/04/19 18:05: POC Whole Blood Glucose 212H 10/04/19 18:50: Sodium Level 139, Potassium Level 4.5, Chloride Level 98, Carbon Dioxide Level 26, Anion Gap 15, Blood Urea Nitrogen 56H, Creatinine 3.5H, Estimat Glomerular Filtration Rate 17.0, Glucose Level 208H, Calcium Level 8.6 Height (Feet): 5 Height (Inches): 10.00 Weight (Pounds): 122 Objective Debilitated AA man NCAT (+) trach coarse BS RR abd less distended, anasarca, (+) GT, (+) rectal tube ext (+) edema contracted Ronny Mustafa MD Oct 04, 2019 20:45
[2019-10-04] MEDS: Dyna-Hex 2% Top Sol 2oz TOPIC SCH (21:17)
[2019-10-04] MEDS: Epoetin Alfa-EPBX(ESRD on dialysis)10,000 unit/ml vial SUBQ SCH (21:17)
[2019-10-04] MEDS: Atorvastatin 20mg tab GT SCH (21:18)
[2019-10-05] VITALS: BP 128/55
[2019-10-05 04:00] VITALS: BP 132/67
[2019-10-05] MEDS: NovoLOG Insulin Flexpen SUBQ SCH ×3 (05:27→17:41)
[2019-10-05 05:57] LABS: HEMATOCRIT 33.1 % (42.0-52.0); HEMOGLOBIN 10.1 G/DL (14.2-18.0); MEAN CORPUSCULAR VOLUME 82 FL (80-99); PLATELET COUNT 525 K/UL (150-450); RED BLOOD COUNT 4.05 M/UL (4.70-6.10); RED CELL DISTRIBUTION WIDTH 16.5 % (11.6-14.8)
[2019-10-05] MEDS ORDERED: Heparin 1000 units/ml 1ml Vial INJ SCH (06:00)
[2019-10-05] MEDS ORDERED: Heparin Sod 1000 units/ml 10ml IV SCH (06:00)
[2019-10-05 06:32] LABS: ALANINE AMINOTRANSFERASE 102 U/L (12-78); ALBUMIN 2.2 G/DL (3.4-5.0); ALKALINE PHOSPHATASE 277 U/L (46-116); ASPARTATE AMINO TRANSFERASE 108 U/L (15-37); BILIRUBIN,DIRECT 0.3 MG/DL (0.0-0.3); BILIRUBIN,TOTAL 0.5 MG/DL (0.2-1.0)
[2019-10-05 06:35] LABS: ANION GAP 12 mmol/L (5-15); BLOOD UREA NITROGEN 65 mg/dL (7-18); CALCIUM 9.5 MG/DL (8.5-10.1); CARBON DIOXIDE 28 MMOL/L (21-32); CHLORIDE 97 MMOL/L (98-107); POTASSIUM 4.6 MMOL/L (3.5-5.1); SODIUM 136 MMOL/L (136-145)
--- NOTE | 2019-10-05 07:07 | NUR ---
NURSE HAND-OFF REPORT: Important Events on Shift:none Patient Status: stable Diet: Osmolite 1.2 @ 60cc/hr Pending Orders: Pending Results/Labs: Pending MD notification: Latest Vital Signs: Temperature 98.1 , Pulse 70 , B/P 132 /67 , Respiratory Rate 14 , O2 SAT 100 , Mechanical Ventilator, O2 Flow Rate 15.0 . Vital Sign Comment: EKG Rhythm: Sinus Rhythm with BBB Rhythm change?: N MD Notified?: N - MD Response: Latest Delacruz Fall Score: 70 Fall Risk: High Risk Safety Measures: Call light Within Reach, Bed Alarm Zone 1, Side Rails Side Rails x3, Bed position Low and Locked. Fall Precautions: Yellow Socks Report given to TAMICA De La Cruz- aware to f/u on any abnormal am labs.
--- NOTE | 2019-10-05 07:30 | NUR ---
NURSE NOTES: Received report from TAMICA Atkinson. Pt is sleeping lying in bed in semi'rivera's position. Gtube site patent and intact. Pt on mech vent with settings as ordered. O2 sat -96%. No facial grimacing noted. Pt appears comfortable. Bed in lowest position. Call light within reach. IV site intact and patent. Pt is obtunded.
[2019-10-05 08:00] VITALS: BP 150/64
[2019-10-05] MEDS: Lactobacillus-GG tablet GT SCH ×2 (08:09→20:43)
[2019-10-05] MEDS: Minoxidil 2.5mg tab GT SCH (08:10)
[2019-10-05] MEDS: Metoprolol Tartrate 100mg tab GT SCH ×2 (08:11→20:44)
[2019-10-05] MEDS: Zinc Oxide Oint 2oz TOPIC SCH ×2 (08:11→20:49)
--- NOTE | 2019-10-05 08:33 | General Progress Note ---
Assessment/Plan Assessment/Plan: IMPRESSION: 1. anemia. 2. fevers improved 3. Leukocytosis. 4. hypotension 5. Acute on chronic renal failure. 6. Hyponatremia. 7. Severe protein-calorie malnutrition. 8. Significantly elevated C-reactive protein concerning for infectious etiology. 9. Tracheostomy, G-tube. 10. Ventilator dependence. 11. anasarca 12. Hematuria 13. V pacing 14. hyponatremia 15. transaminitis PLAN chronic care; unable to place care noted on vent/ no wean monitor labs and optimize ID follow up dialysis ongoing prognosis poor for recovery impression, plan, and exam edited and reviewed in detail care discussed with RN Subjective Allergies: Coded Allergies: No Known Allergies (Unverified , 06/10/19) Subjective remains ill on vent/ no change on HD vitals noted Objective Last 24 Hour Vital Signs Date Time Temp Pulse Resp B/P (MAP) Pulse Ox O2 Delivery O2 Flow Rate FiO2 10/05/19 08:11 70 150/64 10/05/19 08:10 150/64 10/05/19 08:00 97.9 75 22 150/64 (92) 100 10/05/19 07:11 79 14 24 10/05/19 05:07 70 14 24 10/05/19 04:00 24 10/05/19 04:00 Mechanical Ventilator 10/05/19 04:00 98.1 79 17 132/67 (88) 100 10/05/19 03:43 77 10/05/19 03:08 76 13 24 10/05/19 01:03 75 15 24 10/05/19 00:00 Mechanical Ventilator 10/05/19 00:00 24 10/05/19 00:00 98.0 72 18 128/55 (79) 99 10/04/19 23:28 70 10/04/19 23:00 70 15 24 10/04/19 21:19 82 118/56 10/04/19 21:04 81 14 24 10/04/19 20:00 98.1 83 18 118/56 (76) 100 10/04/19 20:00 24 10/04/19 20:00 Mechanical Ventilator 10/04/19 19:04 80 10/04/19 18:53 80 13 24 10/04/19 17:15 76 14 24 10/04/19 16:55 97.7 10/04/19 16:00 82 10/04/19 16:00 24 10/04/19 16:00 Mechanical Ventilator 10/04/19 16:00 97.7 83 18 147/63 (91) 100 10/04/19 14:59 80 16 24 10/04/19 12:42 75 12 24 10/04/19 12:00 24 10/04/19 12:00 74 10/04/19 12:00 Mechanical Ventilator 10/04/19 12:00 99.1 74 18 104/70 (81) 100 10/04/19 10:52 72 12 24 10/04/19 09:05 75 12 24 10/04/19 08:34 86 142/68 10/04/19 08:34 142/68 Intake and Output 10/04/19 10/05/19 19:00 07:00 Intake Total 915 ml 710 ml Output Total 40 ml 50 ml Balance 875 ml 660 ml Free Water 90 ml 50 ml IV Total 165 ml Tube Feeding 660 ml 660 ml Stool Total 40 ml 50 ml Laboratory Tests 10/04/19 11:24: POC Whole Blood Glucose [Pending] 10/04/19 18:05: POC Whole Blood Glucose 212H 10/04/19 18:50: Sodium Level 139, Potassium Level 4.5, Chloride Level 98, Carbon Dioxide Level 26, Anion Gap 15, Blood Urea Nitrogen 56H, Creatinine 3.5H, Estimat Glomerular Filtration Rate 17.0, Glucose Level 208H, Calcium Level 8.6 10/04/19 22:47: POC Whole Blood Glucose 191H 10/05/19 03:43: White Blood Count 18.0H, Red Blood Count 4.05L, Hemoglobin 10.1L, Hematocrit 33.1L, Mean Corpuscular Volume 82, Mean Corpuscular Hemoglobin 24.9L, Mean Corpuscular Hemoglobin Concent 30.4L, Red Cell Distribution Width 16.5H, Platelet Count 525H, Mean Platelet Volume 5.5L, Neutrophils (%) (Auto) , Lymphocytes (%) (Auto) , Monocytes (%) (Auto) , Eosinophils (%) (Auto) , Basophils (%) (Auto) , Neutrophils % (Manual) [Pending], Lymphocytes % (Manual) [Pending], Platelet Estimate [Pending], Platelet Morphology [Pending], Sodium Level 136, Potassium Level 4.6, Chloride Level 97L, Carbon Dioxide Level 28, Anion Gap 12, Blood Urea Nitrogen 65H, Creatinine 4.0H, Estimat Glomerular Filtration Rate 14.6, Glucose Level 221H, Calcium Level 9.5, Total Bilirubin 0.5 , Direct Bilirubin 0.3, Aspartate Amino Transf (AST/SGOT) 108H, Alanine Aminotransferase (ALT/SGPT) 102H, Alkaline Phosphatase 277H, Total Protein 9.3H , Albumin 2.2L 10/05/19 05:17: POC Whole Blood Glucose 197H Height (Feet): 5 Height (Inches): 10.00 Weight (Pounds): 123 Objective GENERAL: Ill-appearing male, chronically debilitated. HEENT: Tracheostomy in midline. Questionable fullness in the submandibular region. LUNGS: Coarse breath sounds. reduced breath sounds CARDIAC: S1, S2. Regular rate and rhythm. ABDOMEN: Soft. G-tube. EXTREMITIES: With noted edema. NEUROLOGICAL: Poorly responsive, weak diffusely. Kain Ramirez MD Oct 05, 2019 08:33
--- NOTE | 2019-10-05 10:53 | Infectious Diseases Prog Note ---
Assessment/Plan Assessment/Plan A: 1. Pneumonia with Acinetobacter & Proteus COVID19 X2 : negative 2. ESRD on HD 3. Leukocytosis 4. Respiratory failure, Ventilator dependent 5. Anemia 6. Anasarca 7. 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 Klebsiella catheter infection s/p removal 10. Diarrhea, C. difficile negative PLAN: 1. Continue Unasyn X 3 days 2. Continue Cefepime X 2 days Subjective ROS Limited/Unobtainable: Yes Constitutional: Denies: fever Allergies: Coded Allergies: No Known Allergies (Unverified , 06/10/19) Objective Last 24 Hour Vital Signs Date Time Temp Pulse Resp B/P (MAP) Pulse Ox O2 Delivery O2 Flow Rate FiO2 10/05/19 09:00 74 10/05/19 08:58 82 12 24 10/05/19 08:11 70 150/64 10/05/19 08:10 150/64 10/05/19 08:00 97.9 75 22 150/64 (92) 100 10/05/19 08:00 24 10/05/19 08:00 Mechanical Ventilator 10/05/19 07:11 79 14 24 10/05/19 05:07 70 14 24 10/05/19 04:00 24 10/05/19 04:00 Mechanical Ventilator 10/05/19 04:00 98.1 79 17 132/67 (88) 100 10/05/19 03:43 77 10/05/19 03:08 76 13 24 10/05/19 01:03 75 15 24 10/05/19 00:00 Mechanical Ventilator 10/05/19 00:00 24 10/05/19 00:00 98.0 72 18 128/55 (79) 99 10/04/19 23:28 70 10/04/19 23:00 70 15 24 10/04/19 21:19 82 118/56 10/04/19 21:04 81 14 24 10/04/19 20:00 98.1 83 18 118/56 (76) 100 10/04/19 20:00 24 10/04/19 20:00 Mechanical Ventilator 10/04/19 19:04 80 10/04/19 18:53 80 13 24 10/04/19 17:15 76 14 24 10/04/19 16:55 97.7 10/04/19 16:00 82 10/04/19 16:00 24 10/04/19 16:00 Mechanical Ventilator 10/04/19 16:00 97.7 83 18 147/63 (91) 100 10/04/19 14:59 80 16 24 10/04/19 12:42 75 12 24 10/04/19 12:00 24 10/04/19 12:00 74 10/04/19 12:00 Mechanical Ventilator 10/04/19 12:00 99.1 74 18 104/70 (81) 100 10/04/19 10:52 72 12 24 Height (Feet): 5 Height (Inches): 10.00 Weight (Pounds): 123 HEENT: mucous membranes moist, status post trach Respiratory/Chest: lungs clear, other - on ventilator Cardiovascular: normal rate Abdomen: soft, non tender, other - GT & rectal tube Extremities: no edema Neurologic/Psychiatric: aphasia Microbiology Date/Time Source Procedure Growth Status 10/03/19 16:50 Nasopharynx SARS-CoV-2 RdRp Gene Assay - Final Complete Laboratory Tests Test 10/04/19 11:24 10/04/19 18:05 10/04/19 18:50 10/04/19 22:47 POC Whole Blood Glucose Pending 212 MG/DL (74-106) H 191 MG/DL (74-106) H Sodium Level 139 MMOL/L (136-145) Potassium Level 4.5 MMOL/L (3.5-5.1) Chloride Level 98 MMOL/L (98-107) Carbon Dioxide Level 26 MMOL/L (21-32) Anion Gap 15 mmol/L (5-15) Blood Urea Nitrogen 56 mg/dL (7-18) H Creatinine 3.5 MG/DL (0.55-1.30) H Estimat Glomerular Filtration Rate 17.0 mL/min (>60) Glucose Level 208 MG/DL (74-106) H Calcium Level 8.6 MG/DL (8.5-10.1) Test 10/05/19 03:43 10/05/19 05:17 White Blood Count 18.0 K/UL (4.8-10.8) H Red Blood Count 4.05 M/UL (4.70-6.10) L Hemoglobin 10.1 G/DL (14.2-18.0) L Hematocrit 33.1 % (42.0-52.0) L Mean Corpuscular Volume 82 FL (80-99) Mean Corpuscular Hemoglobin 24.9 PG (27.0-31.0) L Mean Corpuscular Hemoglobin Concent 30.4 G/DL (32.0-36.0) L Red Cell Distribution Width 16.5 % (11.6-14.8) H Platelet Count 525 K/UL (150-450) H Mean Platelet Volume 5.5 FL (6.5-10.1) L Neutrophils (%) (Auto) % (45.0-75.0) Lymphocytes (%) (Auto) % (20.0-45.0) Monocytes (%) (Auto) % (1.0-10.0) Eosinophils (%) (Auto) % (0.0-3.0) Basophils (%) (Auto) % (0.0-2.0) Differential Total Cells Counted 100 Neutrophils % (Manual) 65 % (45-75) Lymphocytes % (Manual) 9 % (20-45) L Monocytes % (Manual) 14 % (1-10) H Eosinophils % (Manual) 11 % (0-3) H Basophils % (Manual) 1 % (0-2) Band Neutrophils 0 % (0-8) Platelet Estimate Increased H Platelet Morphology Normal Hypochromasia 1+ Anisocytosis 1+ Sodium Level 136 MMOL/L (136-145) Potassium Level 4.6 MMOL/L (3.5-5.1) Chloride Level 97 MMOL/L (98-107) L Carbon Dioxide Level 28 MMOL/L (21-32) Anion Gap 12 mmol/L (5-15) Blood Urea Nitrogen 65 mg/dL (7-18) H Creatinine 4.0 MG/DL (0.55-1.30) H Estimat Glomerular Filtration Rate 14.6 mL/min (>60) Glucose Level 221 MG/DL (74-106) H Calcium Level 9.5 MG/DL (8.5-10.1) Total Bilirubin 0.5 MG/DL (0.2-1.0) Direct Bilirubin 0.3 MG/DL (0.0-0.3) Aspartate Amino Transf (AST/SGOT) 108 U/L (15-37) H Alanine Aminotransferase (ALT/SGPT) 102 U/L (12-78) H Alkaline Phosphatase 277 U/L (46-116) H Total Protein 9.3 G/DL (6.4-8.2) H Albumin 2.2 G/DL (3.4-5.0) L POC Whole Blood Glucose 197 MG/DL (74-106) H Current Medications Medications (Trade) Dose Ordered Sig/Leonel Route PRN Reason Start Time Stop Time Status Last Admin Dose Admin Acetaminophen (Tylenol) 650 mg Q4H PRN GT Mild Pain (Pain Scale 1-3) 09/21/19 12:45 10/21/19 12:44 10/04/19 16:25 Ampicillin Sodium/ Sulbactam Sodium 3 gm/Sodium Chloride 110 ml @ 220 mls/hr Q24H IVPB 10/02/19 13:00 10/09/19 12:59 10/04/19 13:09 Atorvastatin Calcium (Lipitor) 40 mg BEDTIME GT 08/09/19 21:00 11/07/19 20:59 10/04/19 21:18 Cefepime HCl 500 mg/Dextrose 55 ml @ 110 mls/hr Q24H IVPB 10/02/19 12:00 10/09/19 11:59 10/04/19 11:24 Chlorhexidine Gluconate (Felipa-Hex 2%) 1 applic DAILY@2000 TOPIC 09/12/19 20:00 12/11/19 19:59 10/04/19 21:17 Clonidine HCl (Catapres Tab) 0.1 mg Q4H PRN GT For High Blood Pressure 09/09/19 12:30 12/08/19 05:29 09/15/19 04:10 Dextrose (Dextrose 50%) 25 ml Q30M PRN IV Hypoglycemia 08/09/19 07:30 11/07/19 07:29 Dextrose (Dextrose 50%) 50 ml Q30M PRN IV Hypoglycemia 08/09/19 07:30 11/07/19 07:29 Diphenoxylate HCl/ Atropine (Lomotil) 2.5 mg QID PRN ORAL Diarrhea 09/24/19 08:45 10/24/19 08:44 Epoetin Andreas (Epoetin Andreas(ESRD on dialysis)) 10,000 unit WED-WED-WED SUBQ 09/20/19 21:00 12/19/19 20:59 10/04/19 21:17 Famotidine (Pepcid) 20 mg DAILY GT 08/30/19 09:00 11/28/19 08:59 10/05/19 08:09 Heparin Sodium (Porcine) (Heparin Sod 1000 units/ml 10ml) 2,000 unit ONCE IV 10/05/19 06:00 10/05/19 23:59 Heparin Sodium (Porcine) (Heparin) 1,000 unit POSTHD INJ 10/05/19 06:00 10/05/19 23:59 Insulin Aspart (NovoLOG) Q6HR SUBQ 09/25/19 18:00 11/07/19 11:29 10/05/19 05:27 Lactobacillus Acidophilus (Culturelle) 1 tab EVERY 12 HOURS GT 10/03/19 21:00 12/13/19 17:59 10/05/19 08:09 Metoprolol Tartrate (Lopressor) 200 mg Q12HR GT 08/09/19 09:00 11/07/19 08:59 10/04/19 21:19 Minoxidil (Loniten) 5 mg DAILY GT 08/09/19 09:00 11/07/19 08:59 10/04/19 08:34 Sodium Chloride 1,000 ml @ 500 mls/hr Q2H PRN IVLG sbp<90 during hd 10/05/19 06:00 10/05/19 23:59 Zinc Oxide (Zinc Oxide) 1 applic EVERY 12 HOURS TOPIC 10/03/19 09:00 11/08/19 17:59 10/05/19 08:11 Real De Leon MD Oct 05, 2019 10:53
[2019-10-05] MEDS ORDERED: NS 275ml ONE (10:58)
[2019-10-05] MEDS ORDERED: Tubing IV Secondary IV ONE (10:58)
--- NOTE | 2019-10-05 11:55 | General Progress Note ---
Assessment/Plan Assessment/Plan: Assessment - abdominal distention, due to colonic dysmotility, - colonoscopy negative to hepatic flexure - diarrhea - presumed TF related - abnormal LFT - Anemia - leukocytosis - stool OB (+) - EGD --> gastritis - Renal failure - Anasarca - resp failure, trach - dysphagia, GT - encephalopathy, contracted - poor px Recommendations - continue TF - rectal tube - roll side to side as feasible (hard due to severe contractions) - Elevate HOB - f/u labs - PPI - abx - supportive care Subjective Allergies: Coded Allergies: No Known Allergies (Unverified , 06/10/19) Subjective above noted tolerating feeds liquid stool 290 cc Objective Last 24 Hour Vital Signs Date Time Temp Pulse Resp B/P (MAP) Pulse Ox O2 Delivery O2 Flow Rate FiO2 10/05/19 11:15 70 14 24 10/05/19 09:00 74 10/05/19 08:58 82 12 24 10/05/19 08:11 70 150/64 10/05/19 08:10 150/64 10/05/19 08:00 97.9 75 22 150/64 (92) 100 10/05/19 08:00 24 10/05/19 08:00 Mechanical Ventilator 10/05/19 07:11 79 14 24 10/05/19 05:07 70 14 24 10/05/19 04:00 24 10/05/19 04:00 Mechanical Ventilator 10/05/19 04:00 98.1 79 17 132/67 (88) 100 10/05/19 03:43 77 10/05/19 03:08 76 13 24 10/05/19 01:03 75 15 24 10/05/19 00:00 Mechanical Ventilator 10/05/19 00:00 24 10/05/19 00:00 98.0 72 18 128/55 (79) 99 10/04/19 23:28 70 10/04/19 23:00 70 15 24 10/04/19 21:19 82 118/56 10/04/19 21:04 81 14 24 10/04/19 20:00 98.1 83 18 118/56 (76) 100 10/04/19 20:00 24 10/04/19 20:00 Mechanical Ventilator 10/04/19 19:04 80 10/04/19 18:53 80 13 24 10/04/19 17:15 76 14 24 10/04/19 16:55 97.7 10/04/19 16:00 82 10/04/19 16:00 24 10/04/19 16:00 Mechanical Ventilator 10/04/19 16:00 97.7 83 18 147/63 (91) 100 10/04/19 14:59 80 16 24 10/04/19 12:42 75 12 24 10/04/19 12:00 24 10/04/19 12:00 74 10/04/19 12:00 Mechanical Ventilator 10/04/19 12:00 99.1 74 18 104/70 (81) 100 Intake and Output 10/04/19 10/05/19 18:59 06:59 Intake Total 795 ml 830 ml Output Total 240 ml 50 ml Balance 555 ml 780 ml Free Water 90 ml 50 ml IV Total 165 ml Tube Feeding 540 ml 780 ml Stool Total 240 ml 50 ml Laboratory Tests 10/04/19 18:05: POC Whole Blood Glucose 212H 10/04/19 18:50: Sodium Level 139, Potassium Level 4.5, Chloride Level 98, Carbon Dioxide Level 26, Anion Gap 15, Blood Urea Nitrogen 56H, Creatinine 3.5H, Estimat Glomerular Filtration Rate 17.0, Glucose Level 208H, Calcium Level 8.6 10/04/19 22:47: POC Whole Blood Glucose 191H 10/05/19 03:43: Sodium Level 136, Potassium Level 4.6, Chloride Level 97L, Carbon Dioxide Level 28, Anion Gap 12, Blood Urea Nitrogen 65H, Creatinine 4.0H, Estimat Glomerular Filtration Rate 14.6, Glucose Level 221H, Calcium Level 9.5, White Blood Count 18.0H, Red Blood Count 4.05L, Hemoglobin 10.1L, Hematocrit 33.1L, Mean Corpuscular Volume 82, Mean Corpuscular Hemoglobin 24.9L, Mean Corpuscular Hemoglobin Concent 30.4L, Red Cell Distribution Width 16.5H, Platelet Count 525H , Mean Platelet Volume 5.5L, Neutrophils (%) (Auto) , Lymphocytes (%) (Auto) , Monocytes (%) (Auto) , Eosinophils (%) (Auto) , Basophils (%) (Auto) , Differential Total Cells Counted 100, Neutrophils % (Manual) 65, Lymphocytes % ( Manual) 9L, Monocytes % (Manual) 14H, Eosinophils % (Manual) 11H, Basophils % ( Manual) 1, Band Neutrophils 0, Platelet Estimate IncreasedH, Platelet Morphology Normal, Hypochromasia 1+, Anisocytosis 1+, Total Bilirubin 0.5, Direct Bilirubin 0.3, Aspartate Amino Transf (AST/SGOT) 108H, Alanine Aminotransferase (ALT/SGPT) 102H, Alkaline Phosphatase 277H, Total Protein 9.3H , Albumin 2.2L 10/05/19 05:17: POC Whole Blood Glucose 197H 10/05/19 11:10: POC Whole Blood Glucose 115H Height (Feet): 5 Height (Inches): 10.00 Weight (Pounds): 123 Objective Debilitated AA man NCAT (+) trach coarse BS RR abd less distended, anasarca, (+) GT, (+) rectal tube ext (+) edema contracted Ronny Mustafa MD Oct 05, 2019 11:55
[2019-10-05] MEDS: Cefepime HCl 500 MG in D5W 55 ML IVPB SCH (11:58)
[2019-10-05 12:00] VITALS: BP 130/85
--- NOTE | 2019-10-05 12:10 | NUR ---
NURSE NOTES: Dialysis started by Dialysis Nurse. BP: 130/85. NV- 70.
--- NOTE | 2019-10-05 12:59 | Hematology/Onc Progress Note ---
Assessment/Plan Assessment/Plan Assessment/recs # Leukocytosis - with multiple infections, VRE UTI, flow is negative --> wbc trend 33-->28-->25->23->22->23->24->17.3-->17-->14->16-->15.6-->14-->14- >13->19->18->17->22->22->19->17-->18->20-->15-->14->16-->14-->17->18 --> on abx, linezolid and zosyn--> zosyn-->gent-->off --> + blood cultures with coag neg staph likely contaminated --> as per id recs --> has ordered a flow cytometry (with pathology) --> does show increased nK cell activity --> JOURDAN 2 and bcr-abl labs ordered (these are send outs) --> plt 585-->613-->649-->669->663-->529-->506 # Anemia due to chronic disease/kidney disease as well, gi bleed + occult + noted --> was on iron in the past, now on hold --> has been started on Epogen sq --> as per renal care --> egd done and shows gastritis --> on ppi --> egd showed gastritis, colo recently done --> hgb 9-->8.7-->7.6-->9.2-->8.9-->9.2->9.3-->8.8->9.9-->9.2-->8.1-->8.7-->7.9- ->8.6-->8.9-->8.2->9-->9.3->8.9-->9.5-->10.6->9.2-->10 # Respiratory failure --> per pulm, s/p trach --> COVID 19 test negative x 2 # Hyperlipidemia --> statin po # Dysphagia s/p gtube with nepro --> per gi # ESRD with r fem julito --> hd as per renal # Dvt ppx scds Appreciate consultation and matt Rn Subjective Constitutional: Denies: no symptoms, chills, fever, malaise, weakness, other Cardiovascular: Denies: no symptoms, chest pain, edema, irregular heart rate, lightheadedness, palpitations, syncope, other Respiratory: Denies: no symptoms, cough, shortness of breath, SOB with excertion, SOB at rest, sputum, wheezing, other Gastrointestinal/Abdominal: Denies: no symptoms, abdomen distended, abdominal pain, black stools, tarry stools, blood in stool, constipated, diarrhea, difficulty swallowing, nausea, poor appetite, poor fluid intake, rectal bleeding , vomiting, other Genitourinary: Denies: no symptoms, burning, discharge, frequency, flank pain, hematuria, incontinence, pain, urgency, other Endocrine: Denies: no symptoms, excessive sweating, flushing, intolerance to cold, intolerance to heat, increased hunger, increased thirst, increased urine, unexplained weight gain, unexplained weight loss, other Allergies: Coded Allergies: No Known Allergies (Unverified , 06/10/19) Subjective 08/15 meds noted, no bleeding, hgb 8.8, wbc 28, path flow pending 08/16 flow pending dw pathologist, results pending, wbc 25, hgb 9 08/17 labs reviewed, meds reviewed, meds noted, no night sweats 08/19 remains obtunded, on vent/trach, no bleeding wbc 21.7 08/20 labs have been reviewed, no bleeding, wbc still elev, path reviewed 08/21 labs are noted, no bleeding, on vent, wbc better 08/22 labs noted, no bleeding, meds reviewed, wbc 24 hgb 7.6 08/23 vent, off abx, c diff negative, h/h stable 08/24 labs reviewed, on abx, wbc 17, hgb 8.9, no hemolysis 08/26 reviewed flow and is negative for leukemia, matt rn 08/27 meds reviewed, no night sweats, matt rn, no major bleeding 08/28 meds reivewed, labs noted 08/29 wbc is stable, approx 15, hgb 8.8, no hemolysis 08/30 labs are noted, is for colo today, hgb 9.9 08/31 right fem julito in place, unchanged, hgb 9.2, gi aware 09/01 labs noted, hgb 8.8, plt >600, no bleeding 09/02 labs noted, no bleeding, with elev wbc still, no new changes 09/03 meds are noted, no bleeding, labs reviewed hgb 8.6 09/04 no major events, hd as per renal, abx, no bleeding hgb low 09/05 labs are noted, no bleeding, meds have been reviewed 09/06 no new labs no hemolysis, cbc is noted, no bleeding 09/07 meds reviewed, no bleeding, matt rn, permacath functioning well 09/09 meds reviewed, wbc still elevated, as per id recs, cbc noted 09/10 is obtunded, with gutbe in place, labs reviewed 09/11 obtunded, as per id, observe now off abx, labs noted, wbc 19 09/12 cbc is pending, remains on epogen, also off abx 09/13 labs reviewed, no bleeding, elev wbc, no night sweats 09/14 meds noted, no bleeding, wbc 19, hgb 9.5, no night sweats 09/21 obtunded, remains on vent, labs noted, no bleeding, hgb 8.9 09/22 obtunded, labs noted, no bleeding, on vent, unchanged 09/23 unchanges, wbc remains elevated 20k, on abx, on vent 09/24 labs have been reviewed, no bleeding, wbc 15, may need abx 09/25 formula gtube changed, labs noted, remains obtunded, hgb 9.3 09/26 labs have been reviewed, no bleeding, matt rn, no night sweats 09/27 meds reviewed, no bleeding, wbc 14, on abx, remains obtunded 09/28 remains obtunded, no bleeding, wbc better, hgb 8.9, no hemolysis, plt 506 09/30 on colisitn, wbc elevated, cefepime added per id, hgb stable 10/01 labs reviewed, no bleeding, matt rn, no major events noted, wbc 14, hgb 10.6 10/02 labs have been noted, hgb 9.2, wbc 17, on abx, matt wrigth 10/03 continue on tube feeds, no bleeding, on vent, wbc remains elevated 10/04 remains ibtunded, is on a mechanical ventilator with tube feeds noted Objective Objective Current Medications Medications (Trade) Dose Ordered Sig/Leonel Route PRN Reason Start Time Stop Time Status Last Admin Dose Admin Acetaminophen (Tylenol) 650 mg Q4H PRN GT Mild Pain (Pain Scale 1-3) 09/21/19 12:45 10/21/19 12:44 10/04/19 16:25 Ampicillin Sodium/ Sulbactam Sodium 3 gm/Sodium Chloride 110 ml @ 220 mls/hr Q24H IVPB 10/02/19 13:00 10/09/19 12:59 10/04/19 13:09 Atorvastatin Calcium (Lipitor) 40 mg BEDTIME GT 08/09/19 21:00 11/07/19 20:59 10/04/19 21:18 Cefepime HCl 500 mg/Dextrose 55 ml @ 110 mls/hr Q24H IVPB 10/02/19 12:00 10/09/19 11:59 10/05/19 11:58 Chlorhexidine Gluconate (Felipa-Hex 2%) 1 applic DAILY@2000 TOPIC 09/12/19 20:00 12/11/19 19:59 10/04/19 21:17 Clonidine HCl (Catapres Tab) 0.1 mg Q4H PRN GT For High Blood Pressure 09/09/19 12:30 12/08/19 05:29 09/15/19 04:10 Dextrose (Dextrose 50%) 25 ml Q30M PRN IV Hypoglycemia 08/09/19 07:30 11/07/19 07:29 Dextrose (Dextrose 50%) 50 ml Q30M PRN IV Hypoglycemia 08/09/19 07:30 11/07/19 07:29 Diphenoxylate HCl/ Atropine (Lomotil) 2.5 mg QID PRN ORAL Diarrhea 09/24/19 08:45 10/24/19 08:44 Epoetin Andreas (Epoetin Andreas(ESRD on dialysis)) 10,000 unit WED-WED-WED SUBQ 09/20/19 21:00 12/19/19 20:59 10/04/19 21:17 Famotidine (Pepcid) 20 mg DAILY GT 08/30/19 09:00 11/28/19 08:59 10/05/19 08:09 Heparin Sodium (Porcine) (Heparin Sod 1000 units/ml 10ml) 2,000 unit ONCE IV 10/05/19 06:00 10/05/19 23:59 Heparin Sodium (Porcine) (Heparin) 1,000 unit POSTHD INJ 10/05/19 06:00 10/05/19 23:59 Insulin Aspart (NovoLOG) Q6HR SUBQ 09/25/19 18:00 11/07/19 11:29 10/05/19 05:27 Lactobacillus Acidophilus (Culturelle) 1 tab EVERY 12 HOURS GT 10/03/19 21:00 12/13/19 17:59 10/05/19 08:09 Metoprolol Tartrate (Lopressor) 200 mg Q12HR GT 08/09/19 09:00 11/07/19 08:59 10/04/19 21:19 Minoxidil (Loniten) 5 mg DAILY GT 08/09/19 09:00 11/07/19 08:59 10/04/19 08:34 Sodium Chloride 1,000 ml @ 500 mls/hr Q2H PRN IVLG sbp<90 during hd 10/05/19 06:00 10/05/19 23:59 Zinc Oxide (Zinc Oxide) 1 applic EVERY 12 HOURS TOPIC 10/03/19 09:00 11/08/19 17:59 10/05/19 08:11 Last 24 Hour Vital Signs Date Time Temp Pulse Resp B/P (MAP) Pulse Ox O2 Delivery O2 Flow Rate FiO2 10/05/19 12:08 Mechanical Ventilator 10/05/19 12:00 98.2 80 16 130/85 (100) 100 10/05/19 12:00 24 10/05/19 12:00 74 10/05/19 11:15 70 14 24 10/05/19 09:00 74 10/05/19 08:58 82 12 24 10/05/19 08:11 70 150/64 10/05/19 08:10 150/64 10/05/19 08:00 97.9 75 22 150/64 (92) 100 10/05/19 08:00 24 10/05/19 08:00 Mechanical Ventilator 10/05/19 07:11 79 14 24 10/05/19 05:07 70 14 24 10/05/19 04:00 24 10/05/19 04:00 Mechanical Ventilator 10/05/19 04:00 98.1 79 17 132/67 (88) 100 10/05/19 03:43 77 10/05/19 03:08 76 13 24 10/05/19 01:03 75 15 24 10/05/19 00:00 Mechanical Ventilator 10/05/19 00:00 24 10/05/19 00:00 98.0 72 18 128/55 (79) 99 10/04/19 23:28 70 10/04/19 23:00 70 15 24 10/04/19 21:19 82 118/56 10/04/19 21:04 81 14 24 10/04/19 20:00 98.1 83 18 118/56 (76) 100 10/04/19 20:00 24 10/04/19 20:00 Mechanical Ventilator 10/04/19 19:04 80 10/04/19 18:53 80 13 24 10/04/19 17:15 76 14 24 10/04/19 16:55 97.7 10/04/19 16:00 82 10/04/19 16:00 24 10/04/19 16:00 Mechanical Ventilator 10/04/19 16:00 97.7 83 18 147/63 (91) 100 10/04/19 14:59 80 16 24 10/04/19 12:42 75 12 24 10/04/19 12:00 24 10/04/19 12:00 74 10/04/19 12:00 Mechanical Ventilator 10/04/19 12:00 99.1 74 18 104/70 (81) 100 10/04/19 10:52 72 12 24 10/04/19 09:05 75 12 24 10/04/19 08:34 86 142/68 10/04/19 08:34 142/68 10/04/19 08:00 Mechanical Ventilator 10/04/19 08:00 24 10/04/19 08:00 98.8 86 17 142/68 (92) 100 10/04/19 08:00 86 10/04/19 07:04 86 14 24 10/04/19 04:37 78 18 24 10/04/19 04:00 24 10/04/19 04:00 Mechanical Ventilator 10/04/19 04:00 98.7 87 17 145/64 (91) 100 10/04/19 03:52 82 10/04/19 02:57 78 16 24 10/04/19 01:20 76 16 24 10/04/19 00:00 Mechanical Ventilator 10/04/19 00:00 97.9 72 17 118/62 (80) 98 10/04/19 00:00 24 10/03/19 23:28 72 10/03/19 22:46 71 22 24 10/03/19 20:48 76 16 24 10/03/19 20:26 93 143/62 10/03/19 20:00 Mechanical Ventilator 10/03/19 20:00 24 10/03/19 20:00 98.4 89 17 156/84 (108) 98 10/03/19 19:46 90 10/03/19 18:50 101 20 24 10/03/19 16:00 Mechanical Ventilator 10/03/19 16:00 24 10/03/19 16:00 98.4 78 19 127/78 (94) 99 10/03/19 15:32 77 10/03/19 15:00 78 16 24 Intake and Output 10/04/19 10/05/19 19:00 07:00 Intake Total 915 ml 710 ml Output Total 40 ml 50 ml Balance 875 ml 660 ml Free Water 90 ml 50 ml IV Total 165 ml Tube Feeding 660 ml 660 ml Stool Total 40 ml 50 ml Labs Test 10/02/19 13:01 10/02/19 18:42 10/03/19 00:18 10/03/19 04:40 POC Whole Blood Glucose 181 MG/DL (74-106) 195 MG/DL (74-106) White Blood Count 16.7 K/UL (4.8-10.8) Red Blood Count 3.72 M/UL (4.70-6.10) Hemoglobin 9.2 G/DL (14.2-18.0) Hematocrit 30.1 % (42.0-52.0) Mean Corpuscular Volume 81 FL (80-99) Mean Corpuscular Hemoglobin 24.7 PG (27.0-31.0) Mean Corpuscular Hemoglobin Concent 30.5 G/DL (32.0-36.0) Red Cell Distribution Width 16.6 % (11.6-14.8) Platelet Count 459 K/UL (150-450) Mean Platelet Volume 5.7 FL (6.5-10.1) Neutrophils (%) (Auto) 64.0 % (45.0-75.0) Lymphocytes (%) (Auto) 15.4 % (20.0-45.0) Monocytes (%) (Auto) 8.3 % (1.0-10.0) Eosinophils (%) (Auto) 11.2 % (0.0-3.0) Basophils (%) (Auto) 1.2 % (0.0-2.0) Sodium Level 133 MMOL/L (136-145) Potassium Level 4.2 MMOL/L (3.5-5.1) Chloride Level 95 MMOL/L (98-107) Carbon Dioxide Level 27 MMOL/L (21-32) Anion Gap 11 mmol/L (5-15) Blood Urea Nitrogen 74 mg/dL (7-18) Creatinine 4.3 MG/DL (0.55-1.30) Estimat Glomerular Filtration Rate 13.4 mL/min (>60) Glucose Level 118 MG/DL (74-106) Calcium Level 8.9 MG/DL (8.5-10.1) Test 10/03/19 05:27 10/03/19 11:33 10/03/19 17:46 10/03/19 23:18 POC Whole Blood Glucose 105 MG/DL (74-106) 166 MG/DL (74-106) 138 MG/DL (74-106) Test 10/04/19 05:26 10/04/19 11:24 10/04/19 18:05 10/04/19 18:50 POC Whole Blood Glucose 137 MG/DL (74-106) 212 MG/DL (74-106) Sodium Level 139 MMOL/L (136-145) Potassium Level 4.5 MMOL/L (3.5-5.1) Chloride Level 98 MMOL/L (98-107) Carbon Dioxide Level 26 MMOL/L (21-32) Anion Gap 15 mmol/L (5-15) Blood Urea Nitrogen 56 mg/dL (7-18) Creatinine 3.5 MG/DL (0.55-1.30) Estimat Glomerular Filtration Rate 17.0 mL/min (>60) Glucose Level 208 MG/DL (74-106) Calcium Level 8.6 MG/DL (8.5-10.1) Test 10/04/19 22:47 10/05/19 03:43 10/05/19 05:17 10/05/19 11:10 POC Whole Blood Glucose 191 MG/DL (74-106) 197 MG/DL (74-106) 115 MG/DL (74-106) White Blood Count 18.0 K/UL (4.8-10.8) Red Blood Count 4.05 M/UL (4.70-6.10) Hemoglobin 10.1 G/DL (14.2-18.0) Hematocrit 33.1 % (42.0-52.0) Mean Corpuscular Volume 82 FL (80-99) Mean Corpuscular Hemoglobin 24.9 PG (27.0-31.0) Mean Corpuscular Hemoglobin Concent 30.4 G/DL (32.0-36.0) Red Cell Distribution Width 16.5 % (11.6-14.8) Platelet Count 525 K/UL (150-450) Mean Platelet Volume 5.5 FL (6.5-10.1) Neutrophils (%) (Auto) % (45.0-75.0) Lymphocytes (%) (Auto) % (20.0-45.0) Monocytes (%) (Auto) % (1.0-10.0) Eosinophils (%) (Auto) % (0.0-3.0) Basophils (%) (Auto) % (0.0-2.0) Differential Total Cells Counted 100 Neutrophils % (Manual) 65 % (45-75) Lymphocytes % (Manual) 9 % (20-45) Monocytes % (Manual) 14 % (1-10) Eosinophils % (Manual) 11 % (0-3) Basophils % (Manual) 1 % (0-2) Band Neutrophils 0 % (0-8) Platelet Estimate Increased Platelet Morphology Normal Hypochromasia 1+ Anisocytosis 1+ Sodium Level 136 MMOL/L (136-145) Potassium Level 4.6 MMOL/L (3.5-5.1) Chloride Level 97 MMOL/L (98-107) Carbon Dioxide Level 28 MMOL/L (21-32) Anion Gap 12 mmol/L (5-15) Blood Urea Nitrogen 65 mg/dL (7-18) Creatinine 4.0 MG/DL (0.55-1.30) Estimat Glomerular Filtration Rate 14.6 mL/min (>60) Glucose Level 221 MG/DL (74-106) Calcium Level 9.5 MG/DL (8.5-10.1) Total Bilirubin 0.5 MG/DL (0.2-1.0) Direct Bilirubin 0.3 MG/DL (0.0-0.3) Aspartate Amino Transf (AST/SGOT) 108 U/L (15-37) Alanine Aminotransferase (ALT/SGPT) 102 U/L (12-78) Alkaline Phosphatase 277 U/L (46-116) Total Protein 9.3 G/DL (6.4-8.2) Albumin 2.2 G/DL (3.4-5.0) Height (Feet): 5 Height (Inches): 10.00 Weight (Pounds): 123 Objective Physical Exam General Appearance: nad, Chronically Ill Head: normocephalic Eyes: right eye PERRL - Will not open left eye ENT: moist mucus membranes Neck: other - submandibular mass R, fairly rigid with resistance to rotation to L, tracheotomy Respiratory: decreased breath sounds, crackles, other - pacemaker, vent+ Cardiovascular: regular rate, rhythm, edema - anasarca Gastrointestinal: non tender, distended, other - G tube Genitourinary: other Musculoskeletal: other - Contractures all extremities Neurologic: sensory intact, motor weakness, responsive Psychiatric: other Skin: Decubitus/Ulcer - Stage III right elbow, stage III left elbow, stage II sacrum, stage III scrotum, warm/dry Fitz Campos MD Oct 05, 2019 12:59
--- NOTE | 2019-10-05 13:00 | NUR ---
NURSE NOTES: Unasyn not yet given, pt still ongoing dialysis.
--- NOTE | 2019-10-05 14:19 | Nephrology Progress Note ---
Assessment/Plan Plan MOF ESRD - HD TTS. Anemia of CKD -TUYET. Subjective Subjective Obtunded. Objective Objective Last 24 Hour Vital Signs Date Time Temp Pulse Resp B/P (MAP) Pulse Ox O2 Delivery O2 Flow Rate FiO2 10/05/19 13:05 82 14 24 10/05/19 12:08 Mechanical Ventilator 10/05/19 12:00 98.2 80 16 130/85 (100) 100 10/05/19 12:00 24 10/05/19 12:00 74 10/05/19 11:15 70 14 24 10/05/19 09:00 74 10/05/19 08:58 82 12 24 10/05/19 08:11 70 150/64 10/05/19 08:10 150/64 10/05/19 08:00 97.9 75 22 150/64 (92) 100 10/05/19 08:00 24 10/05/19 08:00 Mechanical Ventilator 10/05/19 07:11 79 14 24 10/05/19 05:07 70 14 24 10/05/19 04:00 24 10/05/19 04:00 Mechanical Ventilator 10/05/19 04:00 98.1 79 17 132/67 (88) 100 10/05/19 03:43 77 10/05/19 03:08 76 13 24 10/05/19 01:03 75 15 24 10/05/19 00:00 Mechanical Ventilator 10/05/19 00:00 24 10/05/19 00:00 98.0 72 18 128/55 (79) 99 10/04/19 23:28 70 10/04/19 23:00 70 15 24 10/04/19 21:19 82 118/56 10/04/19 21:04 81 14 24 10/04/19 20:00 98.1 83 18 118/56 (76) 100 10/04/19 20:00 24 10/04/19 20:00 Mechanical Ventilator 10/04/19 19:04 80 10/04/19 18:53 80 13 24 10/04/19 17:15 76 14 24 10/04/19 16:55 97.7 10/04/19 16:00 82 10/04/19 16:00 24 10/04/19 16:00 Mechanical Ventilator 10/04/19 16:00 97.7 83 18 147/63 (91) 100 10/04/19 14:59 80 16 24 Intake and Output 10/04/19 10/05/19 19:00 07:00 Intake Total 915 ml 710 ml Output Total 40 ml 50 ml Balance 875 ml 660 ml Free Water 90 ml 50 ml IV Total 165 ml Tube Feeding 660 ml 660 ml Stool Total 40 ml 50 ml Laboratory Tests 10/04/19 18:05: POC Whole Blood Glucose 212H 10/04/19 18:50: Sodium Level 139, Potassium Level 4.5, Chloride Level 98, Carbon Dioxide Level 26, Anion Gap 15, Blood Urea Nitrogen 56H, Creatinine 3.5H, Estimat Glomerular Filtration Rate 17.0, Glucose Level 208H, Calcium Level 8.6 10/04/19 22:47: POC Whole Blood Glucose 191H 10/05/19 03:43: Sodium Level 136, Potassium Level 4.6, Chloride Level 97L, Carbon Dioxide Level 28, Anion Gap 12, Blood Urea Nitrogen 65H, Creatinine 4.0H, Estimat Glomerular Filtration Rate 14.6, Glucose Level 221H, Calcium Level 9.5, White Blood Count 18.0H, Red Blood Count 4.05L, Hemoglobin 10.1L, Hematocrit 33.1L, Mean Corpuscular Volume 82, Mean Corpuscular Hemoglobin 24.9L, Mean Corpuscular Hemoglobin Concent 30.4L, Red Cell Distribution Width 16.5H, Platelet Count 525H , Mean Platelet Volume 5.5L, Neutrophils (%) (Auto) , Lymphocytes (%) (Auto) , Monocytes (%) (Auto) , Eosinophils (%) (Auto) , Basophils (%) (Auto) , Differential Total Cells Counted 100, Neutrophils % (Manual) 65, Lymphocytes % ( Manual) 9L, Monocytes % (Manual) 14H, Eosinophils % (Manual) 11H, Basophils % ( Manual) 1, Band Neutrophils 0, Platelet Estimate IncreasedH, Platelet Morphology Normal, Hypochromasia 1+, Anisocytosis 1+, Total Bilirubin 0.5, Direct Bilirubin 0.3, Aspartate Amino Transf (AST/SGOT) 108H, Alanine Aminotransferase (ALT/SGPT) 102H, Alkaline Phosphatase 277H, Total Protein 9.3H , Albumin 2.2L 10/05/19 05:17: POC Whole Blood Glucose 197H 10/05/19 11:10: POC Whole Blood Glucose 115H Height (Feet): 5 Height (Inches): 10.00 Weight (Pounds): 123 Objective CV RR Trach clean Lungs CTA New Perma Cath RIJ. Abd SNT. BS + E No CCE Erica Pichardo MD Oct 05, 2019 14:19
--- NOTE | 2019-10-05 15:32 | NUR ---
Dialysis completed by HD Nurse. No any significant changes. VS WNL. Continue to monitor pt closely. output -2.5L.
[2019-10-05] MEDS: Ampicillin/Sulbactam Sod 3 GM in NS 110 ML IVPB SCH (15:37)
[2019-10-05 16:00] VITALS: BP 130/65
--- NOTE | 2019-10-05 16:22 | NUR ---
DISCHARGE PLANNING: NOTE F/U CALL PLACED TO HARPER AT THE [facility] VM LEFT AWAITING CALL BACK REGARDING PLACEMENT AND POSSIBLE ADMIN DAYS INITIAL CALL WAS PLACED THIS AM BY CM DIRECTOR OF ADMISSIONS.
--- NOTE | 2019-10-05 16:25 | NUR ---
CASE MANAGEMENT: REVIEW 10/05/2019 SI;SEPSIS. VS: T 97.7 HR 93 RR 18 B/P 130/65 SATS 100% ON MECH VENT FIO2 24 LABS: WBC 18 CL 97 BUN 65 CR 4 GLU 221 AST 108 ALT 102 ALP 277 IS;LIPITOR PO QHS LONITEN GT QD LOPRESSOR GT Q12H INSULIN ASPART SUBQ Q6H CEFEPIME IV Q24H UNASYN IV Q24H SDU
--- NOTE | 2019-10-05 16:28 | NUR ---
INSURANCE UPDATED CLINICALS AND REVIEW HAVE BEEN FAXED TO: [facility] REF# [id number] RIC:HARPER P:[phone] F:[phone]
--- NOTE | 2019-10-05 17:04 | Surgery Progress Note ---
Surgery Progress Note Subjective Procedure Performed Right femoral temporary hemodialysis catheter removal Additional Comments worsening leukocytosis lft's elevated exam stable ill appearing overall unchanged Objective Last 24 Hour Vital Signs Date Time Temp Pulse Resp B/P (MAP) Pulse Ox O2 Delivery O2 Flow Rate FiO2 10/05/19 16:49 96 16 24 10/05/19 16:23 Mechanical Ventilator 10/05/19 16:00 24 10/05/19 16:00 97.7 93 18 130/65 (86) 100 10/05/19 16:00 94 10/05/19 14:37 88 15 24 10/05/19 13:05 82 14 24 10/05/19 12:08 Mechanical Ventilator 10/05/19 12:00 98.2 80 16 130/85 (100) 100 10/05/19 12:00 24 10/05/19 12:00 74 10/05/19 11:15 70 14 24 10/05/19 09:00 74 10/05/19 08:58 82 12 24 10/05/19 08:11 70 150/64 10/05/19 08:10 150/64 10/05/19 08:00 97.9 75 22 150/64 (92) 100 10/05/19 08:00 24 10/05/19 08:00 Mechanical Ventilator 10/05/19 07:11 79 14 24 10/05/19 05:07 70 14 24 10/05/19 04:00 24 10/05/19 04:00 Mechanical Ventilator 10/05/19 04:00 98.1 79 17 132/67 (88) 100 10/05/19 03:43 77 10/05/19 03:08 76 13 24 10/05/19 01:03 75 15 24 10/05/19 00:00 Mechanical Ventilator 10/05/19 00:00 24 10/05/19 00:00 98.0 72 18 128/55 (79) 99 10/04/19 23:28 70 10/04/19 23:00 70 15 24 10/04/19 21:19 82 118/56 10/04/19 21:04 81 14 24 10/04/19 20:00 98.1 83 18 118/56 (76) 100 10/04/19 20:00 24 10/04/19 20:00 Mechanical Ventilator 10/04/19 19:04 80 10/04/19 18:53 80 13 24 8/26/20 17:15 76 14 24 I&O Intake and Output 10/04/19 10/05/19 19:00 07:00 Intake Total 915 ml 710 ml Output Total 40 ml 50 ml Balance 875 ml 660 ml Free Water 90 ml 50 ml IV Total 165 ml Tube Feeding 660 ml 660 ml Stool Total 40 ml 50 ml Dressing: other Wound: other Cardiovascular: RSR Respiratory: decreased breath sounds Abdomen: soft, non-tender, present bowel sounds Extremities: no tenderness, no cyanosis, other Laboratory Tests Test 10/04/19 18:05 10/04/19 18:50 10/04/19 22:47 10/05/19 03:43 POC Whole Blood Glucose 212 MG/DL (74-106) H 191 MG/DL (74-106) H Sodium Level 139 MMOL/L (136-145) 136 MMOL/L (136-145) Potassium Level 4.5 MMOL/L (3.5-5.1) 4.6 MMOL/L (3.5-5.1) Chloride Level 98 MMOL/L (98-107) 97 MMOL/L (98-107) L Carbon Dioxide Level 26 MMOL/L (21-32) 28 MMOL/L (21-32) Anion Gap 15 mmol/L (5-15) 12 mmol/L (5-15) Blood Urea Nitrogen 56 mg/dL (7-18) H 65 mg/dL (7-18) H Creatinine 3.5 MG/DL (0.55-1.30) H 4.0 MG/DL (0.55-1.30) H Estimat Glomerular Filtration Rate 17.0 mL/min (>60) 14.6 mL/min (>60) Glucose Level 208 MG/DL (74-106) H 221 MG/DL (74-106) H Calcium Level 8.6 MG/DL (8.5-10.1) 9.5 MG/DL (8.5-10.1) White Blood Count 18.0 K/UL (4.8-10.8) H Red Blood Count 4.05 M/UL (4.70-6.10) L Hemoglobin 10.1 G/DL (14.2-18.0) L Hematocrit 33.1 % (42.0-52.0) L Mean Corpuscular Volume 82 FL (80-99) Mean Corpuscular Hemoglobin 24.9 PG (27.0-31.0) L Mean Corpuscular Hemoglobin Concent 30.4 G/DL (32.0-36.0) L Red Cell Distribution Width 16.5 % (11.6-14.8) H Platelet Count 525 K/UL (150-450) H Mean Platelet Volume 5.5 FL (6.5-10.1) L Neutrophils (%) (Auto) % (45.0-75.0) Lymphocytes (%) (Auto) % (20.0-45.0) Monocytes (%) (Auto) % (1.0-10.0) Eosinophils (%) (Auto) % (0.0-3.0) Basophils (%) (Auto) % (0.0-2.0) Differential Total Cells Counted 100 Neutrophils % (Manual) 65 % (45-75) Lymphocytes % (Manual) 9 % (20-45) L Monocytes % (Manual) 14 % (1-10) H Eosinophils % (Manual) 11 % (0-3) H Basophils % (Manual) 1 % (0-2) Band Neutrophils 0 % (0-8) Platelet Estimate Increased H Platelet Morphology Normal Hypochromasia 1+ Anisocytosis 1+ Total Bilirubin 0.5 MG/DL (0.2-1.0) Direct Bilirubin 0.3 MG/DL (0.0-0.3) Aspartate Amino Transf (AST/SGOT) 108 U/L (15-37) H Alanine Aminotransferase (ALT/SGPT) 102 U/L (12-78) H Alkaline Phosphatase 277 U/L (46-116) H Total Protein 9.3 G/DL (6.4-8.2) H Albumin 2.2 G/DL (3.4-5.0) L Test 10/05/19 05:17 10/05/19 11:10 POC Whole Blood Glucose 197 MG/DL (74-106) H 115 MG/DL (74-106) H Plan Problems: (1) Anemia (2) Hyponatremia (3) Leukocytosis Assessment & Plan: Tracheostomy, left chest pacemaker are again demonstrated. There is bilateral interstitial and airspace disease and bilateral pleural fluid again demonstrated. This appears more severe than on the prior study. Bilateral interstitial and airspace infiltrates versus edema. Bilateral pleural effusions Leukocytosis, anemia, tachycardia, abnormal labs. Wound evaluated and likely etiology of patient's sepsis. Leukocytosis etiology work-up antibiotics per infectious disease Appreciate nephrology input transfuse with dialysis We will follow with recommendations thank you allowing participation's care plan HD access temp HD discussed with medical teams line okay HD as per renal persistent leukocytosis flow cyto noted improving trending down right fem line removed wbc fluctuating h/h stable lft's elevated (4) Ventilator dependent (5) Right lower lobe pneumonia (6) Hypokalemia (7) Hyperkalemia (8) Anasarca (9) Decubitus skin ulcer Assessment & Plan: pt presented on admission with generalized edemae.Skin assessed under tracheostomy and no areas of concerns noted. GT Insertion is marginally erythematous with small amt slough at stoma. Unstageable Pressure Injury R elbow. Base of wound is 100% yellow slough, Borders are erythematous. Wound oozing small amt haemopurulent exudate.Darker skin tone without elevation in skin temp or erythema periwound. Pt's penis and scrotum are grossly edematous and enlarged and weeping serous exudate from numerous sites both from penis and scrotum. Two small open wounds noted at base of at base of shaft of penis ,and contreras aspect of scrotum. Both wounds oozing large amt sanguineous and serosanguineous exudate. Multiple open wounds with Biofilm at base of each wounds noted to contreras/lateral,inferior and posterior aspects of scrotum. These wounds noted to be oozing moderate amts of serosanguineous exudate. Hypertrophic scar with scattered areas of hyperpigmentation noted to Sacrum. DTPI noted to L Buttocks (L)7cm x (W)9cm. Base of wound is purple and indurated.Darker skin tone without erythema, induration or fluctuance R and L ischial tuberosities. Both heels are boggy with non-blanchable erythema. Tx.Plan: Cleanse wound R elbow with Saline. Apply TheraHoney, Apply Moisture Barrier Paste periwound. Cover with Optifoam drsg.Change Daily and prn. Wash GT site with soap and water.Pat dry. Apply Zinc Oxide Paste to GT site Daily. Leave Open to Air. Apply Zinc Oxide Paste to entire Scrotum, Place ABD pads to R and L lateral, and posterior aspects of scrotum TWICE daily. Apply Cavilon Skin Barrier to malleoli and both Heels. Cover each site with Optifoam drsgs. Change every 7 days and prn. Reposition at least every 2hours or as tolerated. Off-load heels with Pillows. APM/BECCA Mattress overlay. (10) Malnutrition Assessment & Plan: DAILY ESTIMATED NEEDS: Needs based on Renal, critical care, wound/ 61kg 22-30 kcals/kg 0450-9738 total kcals 1.25-2 g protein/kg 76-122 g total protein Fluid per MD, now on HD NUTRITION DIAGNOSIS: * Swallowing difficulty R/T respiratory failure, dysphagia as evidenced by trach/vent dep, PEG dep * Increased kcal/prot needs R/T wound healing as evidenced by admitted w/ multiple pressure injuries including full thickness wounds at junction of Shaft of penis, dorsal scrotum, R elbow, and DTPI @ L buttocks. CURRENT TF:Osmolite 1.2 @ 60ml/hr x 20 hrs + Garo BID ENTERAL NUTRITION RECOMMENDATIONS: Vital AF 1.2 @ 60ml/hr x 20 hrs to provide 1200ml, 1440kcal, 90g prot, 973ml free water * Rec 20 hr run time for GI rest. -> W/ improved GI status, rec Vital AF 1.2, an elemental and carb controlled TF -> monitor lytes and renal fxn closely, monitor need for renal TF -> TF @ goal will provide 1642mg K and 2025mg Phos -> HOB over 30 degrees/ water flush per MD -------- Trial of Osmolite 1.2 continue for now- Goal of 60ml/hr for 20 hrs (4 hrs bowel rest) to provide 1200ml, 1440 kcal, 67g pro, 984ml free H2O, -> Rec to add prosource 1 pack daily (11g pro) to better meet est pro needs. -> Monitor BG, K closely. Pt would require increased insulin coverage as TF at goal would provide 56g more carbs per day. ADDITIONAL RECOMMENDATIONS: * Per SNF: HT=63" QS=054 lbs (vs EMR wt of 166lbs) -> obtain re-calibrated bedscale wt, rec daily wt monitoring * Wound healing: con't Nephrovite + Garo BID/ Vit C dosing per Nephro * Monitor renal fxn and lytes closely w/ non-renal TF ->K low, phos wnl;updated mag level; rec increased insulin w/ BG labs * Daily wts w/ drop to 118-20 lbs, rec to recalibrate for accurate CBW * Consider DC Miralax if medically appropriate: +rectal tube (11) Uremia (12) CKD (chronic kidney disease) stage 5, GFR less than 15 ml/min (13) Colon distention Assessment & Plan: discussed with GI likely functional as having lots of loose bm rectal tube kub f/u s/p colonoscopy - findings reviewed with GI improved cont diet as tolerated Marked distention of the sigmoid colon. 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 No evidence of bowel wall thickening or pneumatosis 12 mm focus of contrast enhancement in the right pectineus muscle. While nonspecific in appearance, appearance raises concern for a possible pseudoaneurysm. Ill- defined thickening of the pectus medius muscle could indicate some intramuscular hemorrhage. The above findings were phoned to Dr. Urias at the time of interpretation Large bilateral pleural effusions Hazy pulmonary parenchymal opacities as well as dense consolidative opacities most likely represent pulmonary edema, but could represent pneumonia Evidence of anasarca elsewhere, with generalized edema of the subcutaneous fat Bladder wall thickening, raises concern for cystitis. Avalos catheter in place Colonic diverticulosis. No evidence of diverticulitis. Tracheostomy Pacemaker Gastrostomy Jonathan Urias Oct 05, 2019 17:04
--- NOTE | 2019-10-05 18:16 | NUR ---
Spoke Dr. urias if needed to hold feeding for Abdominal gia, as per Dr. Urias just do gia as possible.
--- NOTE | 2019-10-05 19:01 | NUR ---
NURSE HAND-OFF REPORT: Important Events on Shift: Dialysis with output of 2.5L. Increase WBC and LFT. MD's aware. Patient Status: Stable Diet: Osmolite 1.2 running @60cc/hr. Pending Orders: None Pending Results/Labs: CBC with diff/ Abdl gia Pending MD notification: None Latest Vital Signs: Temperature 97.7 , Pulse 92 , B/P 130 /65 , Respiratory Rate 14 , O2 SAT 100 , Mechanical Ventilator, O2 Flow Rate 15.0 . Vital Sign Comment: WNL EKG Rhythm: Vpace Rhythm change?: Y MD Notified?: N - MD Response: non sustained Latest Delacruz Fall Score: 70 Fall Risk: High Risk Safety Measures: Call light Within Reach, Bed Alarm Zone 1, Side Rails Side Rails x3, Bed position Low and Locked. Fall Precautions: Yellow Socks Report given to TAMICA Martinez
--- NOTE | 2019-10-05 19:13 | NUR ---
"NURSE NOTES: Received report from TAMICA Miller. Pt obtunded. Unable to make needs known. PERRLA. Pain upon passive ROM and repositioning noted. Vent settings A/C 12 | Vt 550 | 24% as ordered. 5-lead EKG shows SR. G-tube patent with 0 residual noted running Osmolite 1.2 at 60. HOB 30 deg. Subclav Permacath clean and intact. Rectal tube draining well. Made aware of plan for KUB in AM. Bed placed in lowest and locked position. Bed alarm on. Will continue monitoring."
[2019-10-05 20:00] VITALS: BP 118/67
[2019-10-05] MEDS: Dyna-Hex 2% Top Sol 2oz TOPIC SCH (20:42)
[2019-10-05] MEDS: Atorvastatin 20mg tab GT SCH (20:43)
[2019-10-06] VITALS: BP 124/66
[2019-10-06] MEDS: NovoLOG Insulin Flexpen SUBQ SCH ×5 (00:03→23:07)
--- NOTE | 2019-10-06 00:05 | NUR ---
NURSE NOTES: Held feeding for KUB in AM. 0 residual noted. blood sugar 245. Okay to give 6 units of insulin per charge nurse. 99.1 axil temperature. cooling measures initiated. Will continue monitoring.
[2019-10-06 04:00] VITALS: BP 155/84
[2019-10-06 04:57] LABS: HEMATOCRIT 31.8 % (42.0-52.0); HEMOGLOBIN 9.6 G/DL (14.2-18.0); MEAN CORPUSCULAR VOLUME 81 FL (80-99); PLATELET COUNT 480 K/UL (150-450); RED BLOOD COUNT 3.91 M/UL (4.70-6.10); RED CELL DISTRIBUTION WIDTH 16.8 % (11.6-14.8)
[2019-10-06 05:37] LABS: ALANINE AMINOTRANSFERASE 117 U/L (12-78); ALBUMIN 1.9 G/DL (3.4-5.0); ALBUMIN/GLOBULIN RATIO 0.2 (1.0-2.7); ALKALINE PHOSPHATASE 269 U/L (46-116); AMYLASE 48 U/L (25-115); ANION GAP 10 mmol/L (5-15); ASPARTATE AMINO TRANSFERASE 133 U/L (15-37); BILIRUBIN,TOTAL 0.5 MG/DL (0.2-1.0); BLOOD UREA NITROGEN 38 mg/dL (7-18); CALCIUM 9.1 MG/DL (8.5-10.1); CARBON DIOXIDE 27 MMOL/L (21-32); CHLORIDE 101 MMOL/L (98-107); CREATININE 2.9 MG/DL (0.55-1.30); POTASSIUM 4.5 MMOL/L (3.5-5.1); SODIUM 138 MMOL/L (136-145)
--- NOTE | 2019-10-06 06:15 | NUR ---
NURSE NOTES: Feeding held for abdominal xray. Followed up - no call. BSG 104 mg/dl. Pt in stable condition.
--- NOTE | 2019-10-06 07:24 | NUR ---
NURSE HAND-OFF REPORT: Important Events on Shift: n/a Patient Status: stable Diet: osmolite Pending Orders: n Pending Results/Labs: n Pending MD notification: n Latest Vital Signs: Temperature 99.1 , Pulse 81 , B/P 155 /84 , Respiratory Rate 12 , O2 SAT 100 , Mechanical Ventilator, O2 Flow Rate 15.0 . Vital Sign Comment: EKG Rhythm: Sinus Rhythm Rhythm change?: N MD Notified?: N - MD Response: Latest Delacruz Fall Score: 70 Fall Risk: High Risk Safety Measures: Call light Within Reach, Bed Alarm Zone 1, Side Rails Side Rails x3, Bed position Low and Locked. Fall Precautions: Yellow Socks Report given to TAMICA Johnson.
[2019-10-06 08:00] VITALS: BP 115/55
--- NOTE | 2019-10-06 08:57 | General Progress Note ---
Assessment/Plan Assessment/Plan: IMPRESSION: 1. anemia. 2. fevers improved 3. Leukocytosis. 4. hypotension 5. Acute on chronic renal failure. 6. Hyponatremia. 7. Severe protein-calorie malnutrition. 8. Significantly elevated C-reactive protein concerning for infectious etiology. 9. Tracheostomy, G-tube. 10. Ventilator dependence. 11. anasarca 12. Hematuria 13. V pacing 14. hyponatremia 15. transaminitis PLAN chronic care; unable to place care noted on vent/ no wean monitor labs and optimize ID follow up dialysis ongoing prognosis poor for recovery impression, plan, and exam edited and reviewed in detail care discussed with RN Subjective Allergies: Coded Allergies: No Known Allergies (Unverified , 06/10/19) Subjective remains ill on vent/ no change on HD vitals noted Objective Last 24 Hour Vital Signs Date Time Temp Pulse Resp B/P (MAP) Pulse Ox O2 Delivery O2 Flow Rate FiO2 10/06/19 08:00 98.6 77 12 115/55 (75) 100 10/06/19 07:00 79 13 24 10/06/19 05:07 81 12 24 10/06/19 04:00 Mechanical Ventilator 10/06/19 04:00 24 10/06/19 04:00 99.1 82 15 155/84 (107) 100 10/06/19 03:28 84 10/06/19 03:16 84 13 24 10/06/19 01:05 80 15 24 10/06/19 00:00 99.1 77 16 124/66 (85) 100 10/06/19 00:00 Mechanical Ventilator 10/05/19 23:34 76 10/05/19 22:50 73 14 24 10/05/19 21:13 77 13 24 10/05/19 20:44 88 126/55 10/05/19 20:00 98.1 67 14 118/67 (84) 100 10/05/19 20:00 Mechanical Ventilator 10/05/19 20:00 24 10/05/19 19:48 91 10/05/19 19:09 92 14 24 10/05/19 16:49 96 16 24 10/05/19 16:23 Mechanical Ventilator 10/05/19 16:00 24 10/05/19 16:00 97.7 93 18 130/65 (86) 100 10/05/19 16:00 94 10/05/19 14:37 88 15 24 10/05/19 13:05 82 14 24 10/05/19 12:08 Mechanical Ventilator 10/05/19 12:00 98.2 80 16 130/85 (100) 100 10/05/19 12:00 24 10/05/19 12:00 74 10/05/19 11:15 70 14 24 10/05/19 09:00 74 10/05/19 08:58 82 12 24 Intake and Output 10/05/19 10/06/19 19:00 07:00 Intake Total 880 ml 280 ml Output Total 2570 ml 100 ml Balance -1690 ml 180 ml Free Water 120 ml 40 ml IV Total 220 ml Tube Feeding 540 ml 240 ml Stool Total 70 ml 100 ml Hemodialysis UF 2500 ml Laboratory Tests 10/05/19 11:10: POC Whole Blood Glucose 115H 10/05/19 17:37: POC Whole Blood Glucose 212H 10/05/19 23:54: POC Whole Blood Glucose 245H 10/06/19 03:20: White Blood Count 18.0H, Red Blood Count 3.91L, Hemoglobin 9.6L, Hematocrit 31.8L, Mean Corpuscular Volume 81, Mean Corpuscular Hemoglobin 24.5L, Mean Corpuscular Hemoglobin Concent 30.2L, Red Cell Distribution Width 16.8H, Platelet Count 480H, Mean Platelet Volume 5.5L, Neutrophils (%) (Auto) , Lymphocytes (%) (Auto) , Monocytes (%) (Auto) , Eosinophils (%) (Auto) , Basophils (%) (Auto) , Differential Total Cells Counted 100, Neutrophils % ( Manual) 66, Lymphocytes % (Manual) 11L, Monocytes % (Manual) 20H, Eosinophils % (Manual) 3, Basophils % (Manual) 0, Band Neutrophils 0, Platelet Estimate IncreasedH, Platelet Morphology Normal, Hypochromasia 1+, Anisocytosis 1+, Erythrocyte Sedimentation Rate 32H, Sodium Level 138, Potassium Level 4.5, Chloride Level 101, Carbon Dioxide Level 27, Anion Gap 10, Blood Urea Nitrogen 38H, Creatinine 2.9H, Estimat Glomerular Filtration Rate 21.2, Glucose Level 77# , Lactic Acid Level 1.00, Calcium Level 9.1, Total Bilirubin 0.5, Aspartate Amino Transf (AST/SGOT) 133H, Alanine Aminotransferase (ALT/SGPT) 117H, Alkaline Phosphatase 269H, C-Reactive Protein, Quantitative 18.9H, Total Protein 9.6H, Albumin 1.9L, Globulin 7.7, Albumin/Globulin Ratio 0.2L, Amylase Level 48, Lipase 193 10/06/19 05:24: POC Whole Blood Glucose 104 Height (Feet): 5 Height (Inches): 10.00 Weight (Pounds): 121 Objective GENERAL: Ill-appearing male, chronically debilitated. HEENT: Tracheostomy in midline. Questionable fullness in the submandibular region. LUNGS: Coarse breath sounds. reduced breath sounds CARDIAC: S1, S2. Regular rate and rhythm. ABDOMEN: Soft. G-tube. EXTREMITIES: With noted edema. NEUROLOGICAL: Poorly responsive, weak diffusely. Kain Ramirez MD Oct 06, 2019 08:57
[2019-10-06] MEDS: Minoxidil 2.5mg tab GT SCH (09:14)
[2019-10-06] MEDS: Lactobacillus-GG tablet GT SCH ×2 (09:14→20:23)
[2019-10-06] MEDS: Metoprolol Tartrate 100mg tab GT SCH ×2 (09:14→20:23)
[2019-10-06] MEDS: Zinc Oxide Oint 2oz TOPIC SCH ×2 (09:15→20:28)
--- NOTE | 2019-10-06 10:22 | Hematology/Onc Progress Note ---
Assessment/Plan Assessment/Plan Assessment/recs # Leukocytosis - with multiple infections, VRE UTI, flow is negative --> wbc trend 33-->28-->25->23->22->23->24->17.3-->17-->14->16-->15.6-->14-->14- >13->19->18->17->22->22->19->17-->18->20-->15-->14->16-->14-->17->18 --> on abx, linezolid and zosyn--> zosyn-->gent-->off --> + blood cultures with coag neg staph likely contaminated --> as per id recs --> has ordered a flow cytometry (with pathology) --> does show increased nK cell activity --> JOURDAN 2 and bcr-abl labs ordered (these are send outs)->negative --> plt 585-->613-->649-->669->663-->529-->506 # Anemia due to chronic disease/kidney disease as well, gi bleed + occult + noted --> was on iron in the past, now on hold --> has been started on Epogen sq --> as per renal care --> egd done and shows gastritis --> on ppi --> egd showed gastritis, colo recently done --> hgb 9-->8.7-->7.6-->9.2-->8.9-->9.2->9.3-->8.8->9.9-->9.2-->8.1-->8.7-->7.9- ->8.6-->8.9-->8.2->9-->9.3->8.9-->9.5-->10.6->9.2-->10 --> spep ordered # Respiratory failure --> per pulm, s/p trach --> COVID 19 test negative x 2 # Hyperlipidemia --> statin po # Dysphagia s/p gtube with nepro --> per gi # ESRD with r fem julito --> hd as per renal # Dvt ppx scds Appreciate consultation and matt Rn Subjective Allergies: Coded Allergies: No Known Allergies (Unverified , 06/10/19) All Systems: reviewed and negative except above Subjective 08/15 meds noted, no bleeding, hgb 8.8, wbc 28, path flow pending 08/16 flow pending dw pathologist, results pending, wbc 25, hgb 9 08/17 labs reviewed, meds reviewed, meds noted, no night sweats 08/19 remains obtunded, on vent/trach, no bleeding wbc 21.7 08/20 labs have been reviewed, no bleeding, wbc still elev, path reviewed 08/21 labs are noted, no bleeding, on vent, wbc better 08/22 labs noted, no bleeding, meds reviewed, wbc 24 hgb 7.6 08/23 vent, off abx, c diff negative, h/h stable 08/24 labs reviewed, on abx, wbc 17, hgb 8.9, no hemolysis 08/26 reviewed flow and is negative for leukemia, matt rn 08/27 meds reviewed, no night sweats, matt rn, no major bleeding 08/28 meds reivewed, labs noted 08/29 wbc is stable, approx 15, hgb 8.8, no hemolysis 08/30 labs are noted, is for colo today, hgb 9.9 08/31 right fem julito in place, unchanged, hgb 9.2, gi aware 09/01 labs noted, hgb 8.8, plt >600, no bleeding 09/02 labs noted, no bleeding, with elev wbc still, no new changes 09/03 meds are noted, no bleeding, labs reviewed hgb 8.6 09/04 no major events, hd as per renal, abx, no bleeding hgb low 09/05 labs are noted, no bleeding, meds have been reviewed 09/06 no new labs no hemolysis, cbc is noted, no bleeding 09/07 meds reviewed, no bleeding, matt rn, permacath functioning well 09/09 meds reviewed, wbc still elevated, as per id recs, cbc noted 09/10 is obtunded, with gutbe in place, labs reviewed 09/11 obtunded, as per id, observe now off abx, labs noted, wbc 19 09/12 cbc is pending, remains on epogen, also off abx 09/13 labs reviewed, no bleeding, elev wbc, no night sweats 09/14 meds noted, no bleeding, wbc 19, hgb 9.5, no night sweats 09/21 obtunded, remains on vent, labs noted, no bleeding, hgb 8.9 09/22 obtunded, labs noted, no bleeding, on vent, unchanged 09/23 unchanges, wbc remains elevated 20k, on abx, on vent 09/24 labs have been reviewed, no bleeding, wbc 15, may need abx 09/25 formula gtube changed, labs noted, remains obtunded, hgb 9.3 09/26 labs have been reviewed, no bleeding, matt rn, no night sweats 09/27 meds reviewed, no bleeding, wbc 14, on abx, remains obtunded 09/28 remains obtunded, no bleeding, wbc better, hgb 8.9, no hemolysis, plt 506 09/30 on colisitn, wbc elevated, cefepime added per id, hgb stable 10/01 labs reviewed, no bleeding, dw rn, no major events noted, wbc 14, hgb 10.6 10/02 labs have been noted, hgb 9.2, wbc 17, on abx, matt rn 10/03 continue on tube feeds, no bleeding, on vent, wbc remains elevated 10/04 remains ibtunded, is on a mechanical ventilator with tube feeds noted 10/05 labs are noted, hgb 8.6, wbc remains elevated, have ordered for spep Objective Objective Current Medications Medications (Trade) Dose Ordered Sig/Leonel Route PRN Reason Start Time Stop Time Status Last Admin Dose Admin Acetaminophen (Tylenol) 650 mg Q4H PRN GT Mild Pain (Pain Scale 1-3) 09/21/19 12:45 10/21/19 12:44 10/04/19 16:25 Ampicillin Sodium/ Sulbactam Sodium 3 gm/Sodium Chloride 110 ml @ 220 mls/hr Q24H IVPB 10/02/19 13:00 10/09/19 12:59 10/05/19 15:37 Atorvastatin Calcium (Lipitor) 40 mg BEDTIME GT 08/09/19 21:00 11/07/19 20:59 10/05/19 20:43 Cefepime HCl 500 mg/Dextrose 55 ml @ 110 mls/hr Q24H IVPB 10/02/19 12:00 10/09/19 11:59 10/05/19 11:58 Chlorhexidine Gluconate (Felipa-Hex 2%) 1 applic DAILY@2000 TOPIC 09/12/19 20:00 12/11/19 19:59 10/05/19 20:42 Clonidine HCl (Catapres Tab) 0.1 mg Q4H PRN GT For High Blood Pressure 09/09/19 12:30 12/08/19 05:29 09/15/19 04:10 Dextrose (Dextrose 50%) 25 ml Q30M PRN IV Hypoglycemia 08/09/19 07:30 11/07/19 07:29 Dextrose (Dextrose 50%) 50 ml Q30M PRN IV Hypoglycemia 08/09/19 07:30 11/07/19 07:29 Diphenoxylate HCl/ Atropine (Lomotil) 2.5 mg QID PRN ORAL Diarrhea 09/24/19 08:45 10/24/19 08:44 Epoetin Andreas (Epoetin Andreas(ESRD on dialysis)) 10,000 unit WED-WED-WED SUBQ 09/20/19 21:00 12/19/19 20:59 10/04/19 21:17 Famotidine (Pepcid) 20 mg DAILY GT 08/30/19 09:00 11/28/19 08:59 10/06/19 09:15 Insulin Aspart (NovoLOG) Q6HR SUBQ 09/25/19 18:00 11/07/19 11:29 10/06/19 00:03 Lactobacillus Acidophilus (Culturelle) 1 tab EVERY 12 HOURS GT 10/03/19 21:00 12/13/19 17:59 10/06/19 09:14 Metoprolol Tartrate (Lopressor) 200 mg Q12HR GT 08/09/19 09:00 11/07/19 08:59 10/06/19 09:14 Minoxidil (Loniten) 5 mg DAILY GT 08/09/19 09:00 11/07/19 08:59 10/06/19 09:14 Zinc Oxide (Zinc Oxide) 1 applic EVERY 12 HOURS TOPIC 10/03/19 09:00 11/08/19 17:59 10/06/19 09:15 Last 24 Hour Vital Signs Date Time Temp Pulse Resp B/P (MAP) Pulse Ox O2 Delivery O2 Flow Rate FiO2 10/06/19 09:20 86 16 24 10/06/19 09:14 77 115/55 10/06/19 09:14 115/55 10/06/19 08:00 98.6 77 12 115/55 (75) 100 10/06/19 07:00 79 13 24 10/06/19 05:07 81 12 24 10/06/19 04:00 Mechanical Ventilator 10/06/19 04:00 24 10/06/19 04:00 99.1 82 15 155/84 (107) 100 10/06/19 03:28 84 10/06/19 03:16 84 13 24 10/06/19 01:05 80 15 24 10/06/19 00:00 99.1 77 16 124/66 (85) 100 10/06/19 00:00 Mechanical Ventilator 10/05/19 23:34 76 10/05/19 22:50 73 14 24 10/05/19 21:13 77 13 24 10/05/19 20:44 88 126/55 10/05/19 20:00 98.1 67 14 118/67 (84) 100 10/05/19 20:00 Mechanical Ventilator 10/05/19 20:00 24 10/05/19 19:48 91 10/05/19 19:09 92 14 24 10/05/19 16:49 96 16 24 10/05/19 16:23 Mechanical Ventilator 10/05/19 16:00 24 10/05/19 16:00 97.7 93 18 130/65 (86) 100 10/05/19 16:00 94 10/05/19 14:37 88 15 24 10/05/19 13:05 82 14 24 10/05/19 12:08 Mechanical Ventilator 10/05/19 12:00 98.2 80 16 130/85 (100) 100 10/05/19 12:00 24 10/05/19 12:00 74 10/05/19 11:15 70 14 24 10/05/19 09:00 74 10/05/19 08:58 82 12 24 10/05/19 08:11 70 150/64 8/27/20 08:10 150/64 10/05/19 08:00 97.9 75 22 150/64 (92) 100 10/05/19 08:00 24 10/05/19 08:00 Mechanical Ventilator 10/05/19 07:11 79 14 24 10/05/19 05:07 70 14 24 10/05/19 04:00 24 10/05/19 04:00 Mechanical Ventilator 10/05/19 04:00 98.1 79 17 132/67 (88) 100 10/05/19 03:43 77 10/05/19 03:08 76 13 24 10/05/19 01:03 75 15 24 10/05/19 00:00 Mechanical Ventilator 10/05/19 00:00 24 10/05/19 00:00 98.0 72 18 128/55 (79) 99 10/04/19 23:28 70 10/04/19 23:00 70 15 24 10/04/19 21:19 82 118/56 10/04/19 21:04 81 14 24 10/04/19 20:00 98.1 83 18 118/56 (76) 100 10/04/19 20:00 24 10/04/19 20:00 Mechanical Ventilator 10/04/19 19:04 80 10/04/19 18:53 80 13 24 10/04/19 17:15 76 14 24 10/04/19 16:55 97.7 10/04/19 16:00 82 10/04/19 16:00 24 10/04/19 16:00 Mechanical Ventilator 10/04/19 16:00 97.7 83 18 147/63 (91) 100 10/04/19 14:59 80 16 24 10/04/19 12:42 75 12 24 10/04/19 12:00 24 10/04/19 12:00 74 10/04/19 12:00 Mechanical Ventilator 10/04/19 12:00 99.1 74 18 104/70 (81) 100 10/04/19 10:52 72 12 24 Intake and Output 10/05/19 10/06/19 19:00 07:00 Intake Total 880 ml 280 ml Output Total 2570 ml 100 ml Balance -1690 ml 180 ml Free Water 120 ml 40 ml IV Total 220 ml Tube Feeding 540 ml 240 ml Stool Total 70 ml 100 ml Hemodialysis UF 2500 ml Labs Test 10/03/19 11:33 10/03/19 17:46 10/03/19 23:18 10/04/19 05:26 POC Whole Blood Glucose 166 MG/DL (74-106) 138 MG/DL (74-106) 137 MG/DL (74-106) Test 10/04/19 11:24 10/04/19 18:05 10/04/19 18:50 10/04/19 22:47 POC Whole Blood Glucose 212 MG/DL (74-106) 191 MG/DL (74-106) Sodium Level 139 MMOL/L (136-145) Potassium Level 4.5 MMOL/L (3.5-5.1) Chloride Level 98 MMOL/L (98-107) Carbon Dioxide Level 26 MMOL/L (21-32) Anion Gap 15 mmol/L (5-15) Blood Urea Nitrogen 56 mg/dL (7-18) Creatinine 3.5 MG/DL (0.55-1.30) Estimat Glomerular Filtration Rate 17.0 mL/min (>60) Glucose Level 208 MG/DL (74-106) Calcium Level 8.6 MG/DL (8.5-10.1) Test 10/05/19 03:43 10/05/19 05:17 10/05/19 11:10 10/05/19 17:37 White Blood Count 18.0 K/UL (4.8-10.8) Red Blood Count 4.05 M/UL (4.70-6.10) Hemoglobin 10.1 G/DL (14.2-18.0) Hematocrit 33.1 % (42.0-52.0) Mean Corpuscular Volume 82 FL (80-99) Mean Corpuscular Hemoglobin 24.9 PG (27.0-31.0) Mean Corpuscular Hemoglobin Concent 30.4 G/DL (32.0-36.0) Red Cell Distribution Width 16.5 % (11.6-14.8) Platelet Count 525 K/UL (150-450) Mean Platelet Volume 5.5 FL (6.5-10.1) Neutrophils (%) (Auto) % (45.0-75.0) Lymphocytes (%) (Auto) % (20.0-45.0) Monocytes (%) (Auto) % (1.0-10.0) Eosinophils (%) (Auto) % (0.0-3.0) Basophils (%) (Auto) % (0.0-2.0) Differential Total Cells Counted 100 Neutrophils % (Manual) 65 % (45-75) Lymphocytes % (Manual) 9 % (20-45) Monocytes % (Manual) 14 % (1-10) Eosinophils % (Manual) 11 % (0-3) Basophils % (Manual) 1 % (0-2) Band Neutrophils 0 % (0-8) Platelet Estimate Increased Platelet Morphology Normal Hypochromasia 1+ Anisocytosis 1+ Sodium Level 136 MMOL/L (136-145) Potassium Level 4.6 MMOL/L (3.5-5.1) Chloride Level 97 MMOL/L (98-107) Carbon Dioxide Level 28 MMOL/L (21-32) Anion Gap 12 mmol/L (5-15) Blood Urea Nitrogen 65 mg/dL (7-18) Creatinine 4.0 MG/DL (0.55-1.30) Estimat Glomerular Filtration Rate 14.6 mL/min (>60) Glucose Level 221 MG/DL (74-106) Calcium Level 9.5 MG/DL (8.5-10.1) Total Bilirubin 0.5 MG/DL (0.2-1.0) Direct Bilirubin 0.3 MG/DL (0.0-0.3) Aspartate Amino Transf (AST/SGOT) 108 U/L (15-37) Alanine Aminotransferase (ALT/SGPT) 102 U/L (12-78) Alkaline Phosphatase 277 U/L (46-116) Total Protein 9.3 G/DL (6.4-8.2) Albumin 2.2 G/DL (3.4-5.0) POC Whole Blood Glucose 197 MG/DL (74-106) 115 MG/DL (74-106) 212 MG/DL (74-106) Test 10/05/19 23:54 10/06/19 03:20 10/06/19 05:24 POC Whole Blood Glucose 245 MG/DL (74-106) 104 MG/DL (74-106) White Blood Count 18.0 K/UL (4.8-10.8) Red Blood Count 3.91 M/UL (4.70-6.10) Hemoglobin 9.6 G/DL (14.2-18.0) Hematocrit 31.8 % (42.0-52.0) Mean Corpuscular Volume 81 FL (80-99) Mean Corpuscular Hemoglobin 24.5 PG (27.0-31.0) Mean Corpuscular Hemoglobin Concent 30.2 G/DL (32.0-36.0) Red Cell Distribution Width 16.8 % (11.6-14.8) Platelet Count 480 K/UL (150-450) Mean Platelet Volume 5.5 FL (6.5-10.1) Neutrophils (%) (Auto) % (45.0-75.0) Lymphocytes (%) (Auto) % (20.0-45.0) Monocytes (%) (Auto) % (1.0-10.0) Eosinophils (%) (Auto) % (0.0-3.0) Basophils (%) (Auto) % (0.0-2.0) Differential Total Cells Counted 100 Neutrophils % (Manual) 66 % (45-75) Lymphocytes % (Manual) 11 % (20-45) Monocytes % (Manual) 20 % (1-10) Eosinophils % (Manual) 3 % (0-3) Basophils % (Manual) 0 % (0-2) Band Neutrophils 0 % (0-8) Platelet Estimate Increased Platelet Morphology Normal Hypochromasia 1+ Anisocytosis 1+ Erythrocyte Sedimentation Rate 32 MM/HR (0-20) Sodium Level 138 MMOL/L (136-145) Potassium Level 4.5 MMOL/L (3.5-5.1) Chloride Level 101 MMOL/L (98-107) Carbon Dioxide Level 27 MMOL/L (21-32) Anion Gap 10 mmol/L (5-15) Blood Urea Nitrogen 38 mg/dL (7-18) Creatinine 2.9 MG/DL (0.55-1.30) Estimat Glomerular Filtration Rate 21.2 mL/min (>60) Glucose Level 77 MG/DL (74-106) Lactic Acid Level 1.00 mmol/L (0.4-2.0) Calcium Level 9.1 MG/DL (8.5-10.1) Total Bilirubin 0.5 MG/DL (0.2-1.0) Aspartate Amino Transf (AST/SGOT) 133 U/L (15-37) Alanine Aminotransferase (ALT/SGPT) 117 U/L (12-78) Alkaline Phosphatase 269 U/L (46-116) C-Reactive Protein, Quantitative 18.9 mg/dL (0.00-0.90) Total Protein 9.6 G/DL (6.4-8.2) Albumin 1.9 G/DL (3.4-5.0) Globulin 7.7 g/dL Albumin/Globulin Ratio 0.2 (1.0-2.7) Amylase Level 48 U/L (25-115) Lipase 193 U/L (73-393) Height (Feet): 5 Height (Inches): 10.00 Weight (Pounds): 121 Objective Physical Exam General Appearance: nad, Chronically Ill Head: normocephalic Eyes: right eye PERRL - Will not open left eye ENT: moist mucus membranes Neck: other - submandibular mass R, fairly rigid with resistance to rotation to L, tracheotomy Respiratory: decreased breath sounds, crackles, other - pacemaker, vent+ Cardiovascular: regular rate, rhythm, edema - anasarca Gastrointestinal: non tender, distended, other - G tube Genitourinary: other Musculoskeletal: other - Contractures all extremities Neurologic: sensory intact, motor weakness, responsive Psychiatric: other Skin: Decubitus/Ulcer - Stage III right elbow, stage III left elbow, stage II sacrum, stage III scrotum, warm/dry Fitz Campos MD Oct 06, 2019 10:22
--- NOTE | 2019-10-06 10:37 | Diagnostic Imaging Report ---
Indication: Reason For Exam: ABN LABS Technique: Nj-scale and duplex images of the upper abdomen were obtained Comparison: No comparison, renal sonograms. Reference made to CT scan 08/17/2019, renal sonogram dated 08/09/2019 there is some surface nodularity Findings: There is a right pleural effusion Gallbladder demonstrates tiny wall adherent nonmobile echogenic foci, some possible mural calcifications, and comet tail artifact in the anterior wall. Patient unable to report sonographic Kent's sign. Common bile duct measures 4 mm in diameter. No intrahepatic biliary ductal dilatation. Liver demonstrates normal echogenicity, no focal abnormality. There is some surface nodularity. Portal vein and hepatic veins are patent. Pancreas is incompletely visualized due to overlying bowel gas, visualized portions are unremarkable. Spleen is unremarkable. Left kidney measures 8.7 cm in length. Right kidney measures 8.9 cm length. Both kidneys demonstrate increased echogenicity. There is no hydronephrosis. No focal abnormality . Abdominal aorta is partially obscured by bowel gas, visualized portions are non-aneurysmal . A gastrostomy is noted Impression: Tiny wall adherent nonmobile gallbladder echogenic foci, may reflect wall adherent calculi, small polyps, and/or pleural calcifications. Anterior wall comet tail artifact suggests foci of adenomyomatosis. Normal caliber common bile duct Possible hepatic surface nodularity, could indicate cirrhotic change Echogenic kidneys, consistent with medical renal disease. No hydronephrosis Right pleural effusion Gastrostomy Note nonvisualization of portions of the pancreas and abdominal aorta
--- NOTE | 2019-10-06 10:44 | NUR ---
CASE MANAGEMENT: REVIEW 10/06/2019 SI;SEPSIS. VS: T 98.6 HR 77 RR 12 B/P 115/55 SATS 100% ON MECH VENT FIO2 24 LABS: WBC 18 BUN 38 CR 2.9 AST 133 ALT 117 ALP 269 CRP 18.9 IS;LIPITOR PO QHS LONITEN GT QD LOPRESSOR GT Q12H INSULIN ASPART SUBQ Q6H CEFEPIME IV Q24H UNASYN IV Q24H SDU
--- NOTE | 2019-10-06 10:47 | NUR ---
INSURANCE UPDATED CLINICALS AND REVIEW HAVE BEEN FAXED TO: [facility] REF# [id number] RIC:HARPER P:[phone] F:[phone]
--- NOTE | 2019-10-06 10:48 | NUR ---
DISCHARGE PLANNING: NOTE CALL PLACED TO HARPER AT [employer] VM LEFT AWAITING CALL BACK REGARDING PLACEMENT AND POSSIBLE ADMIN DAYS CLINICALS FAXED TO [facility] BY DORIS RODRIGUEZ FOR REVIEW. DORIS ARREAGA F/U Addendum: 10/06/19 at 1302 by Jessy Gonzalez CM F/U CALL PLACED TO JAMILA AT [facility]. JAMILA IS PENDING MARISABEL FROM [employer]. CALL PLACED TO HARPER OF [employer] MAKING HER AWARE THAT [facility] IS ACCEPTING. [facility] AND [facility] ARE CONSIDERING THIS PT FOR ACCEPTANCE. [facility] IS NOT WILLING TO NEGOTIATE THE RATE. BARRIER TO DC>> FACILITIES WANT PT TO HAVE IN HOUSE HD NOT OUTPT HD D/T INCREASED EXPOSURE TO COVID-19. Addendum: 10/06/19 at 1305 by Jessy Gonzalez CM PER HARPER NO DAYS ARE BEING DENIED. SHE IS UNSURE IF THE PT WILL BE PLACED ON ADMIN DAYS. Addendum: 10/06/19 at 1604 by Jessy Gonzalez CM CALL RECEIVED FROM JAMILA AT [facility]. ANNANITY WANTS TO FIND A CONTRACTED SNF W/ HD PRIOR TO REACHING TO NONCONTRACTED TO SNFS
--- NOTE | 2019-10-06 10:55 | Infectious Diseases Prog Note ---
"Assessment/Plan Assessment/Plan antibiotics : cefepime 10.01.19 - unasyn 10.02.19 - A 1. acenitobacter | proteus pneumonia 2. respiratory failure 3. leucocytosis 4. COVID 19 test negative x 2 5. renal failure on HD P 1. continue unasyn 2 more days 2. continue cefepime 1 more day 3. will follow up cultures Subjective ROS Limited/Unobtainable: Yes Allergies: Coded Allergies: No Known Allergies (Unverified , 06/10/19) Objective Last 24 Hour Vital Signs Date Time Temp Pulse Resp B/P (MAP) Pulse Ox O2 Delivery O2 Flow Rate FiO2 10/06/19 09:20 86 16 24 10/06/19 09:14 77 115/55 10/06/19 09:14 115/55 10/06/19 08:00 98.6 77 12 115/55 (75) 100 10/06/19 07:43 74 10/06/19 07:00 79 13 24 10/06/19 05:07 81 12 24 10/06/19 04:00 Mechanical Ventilator 10/06/19 04:00 24 10/06/19 04:00 99.1 82 15 155/84 (107) 100 10/06/19 03:28 84 10/06/19 03:16 84 13 24 10/06/19 01:05 80 15 24 10/06/19 00:00 99.1 77 16 124/66 (85) 100 10/06/19 00:00 Mechanical Ventilator 10/05/19 23:34 76 10/05/19 22:50 73 14 24 10/05/19 21:13 77 13 24 10/05/19 20:44 88 126/55 10/05/19 20:00 98.1 67 14 118/67 (84) 100 10/05/19 20:00 Mechanical Ventilator 10/05/19 20:00 24 10/05/19 19:48 91 10/05/19 19:09 92 14 24 10/05/19 16:49 96 16 24 10/05/19 16:23 Mechanical Ventilator 10/05/19 16:00 24 10/05/19 16:00 97.7 93 18 130/65 (86) 100 10/05/19 16:00 94 10/05/19 14:37 88 15 24 10/05/19 13:05 82 14 24 10/05/19 12:08 Mechanical Ventilator 10/05/19 12:00 98.2 80 16 130/85 (100) 100 10/05/19 12:00 24 10/05/19 12:00 74 10/05/19 11:15 70 14 24 Height (Feet): 5 Height (Inches): 10.00 Weight (Pounds): 121 HEENT: status post trach Respiratory/Chest: lungs clear Cardiovascular: normal rate, regular rhythm, no gallop/murmur Abdomen: soft, non tender, other - GT Extremities: no edema, other - right subclavian catheter Microbiology Date/Time Source Procedure Growth Status 10/03/19 16:50 Nasopharynx SARS-CoV-2 RdRp Gene Assay - Final Complete Laboratory Tests Test 10/05/19 11:10 10/05/19 17:37 10/05/19 23:54 10/06/19 03:20 POC Whole Blood Glucose 115 MG/DL (74-106) H 212 MG/DL (74-106) H 245 MG/DL (74-106) H White Blood Count 18.0 K/UL (4.8-10.8) H Red Blood Count 3.91 M/UL (4.70-6.10) L Hemoglobin 9.6 G/DL (14.2-18.0) L Hematocrit 31.8 % (42.0-52.0) L Mean Corpuscular Volume 81 FL (80-99) Mean Corpuscular Hemoglobin 24.5 PG (27.0-31.0) L Mean Corpuscular Hemoglobin Concent 30.2 G/DL (32.0-36.0) L Red Cell Distribution Width 16.8 % (11.6-14.8) H Platelet Count 480 K/UL (150-450) H Mean Platelet Volume 5.5 FL (6.5-10.1) L Neutrophils (%) (Auto) % (45.0-75.0) Lymphocytes (%) (Auto) % (20.0-45.0) Monocytes (%) (Auto) % (1.0-10.0) Eosinophils (%) (Auto) % (0.0-3.0) Basophils (%) (Auto) % (0.0-2.0) Differential Total Cells Counted 100 Neutrophils % (Manual) 66 % (45-75) Lymphocytes % (Manual) 11 % (20-45) L Monocytes % (Manual) 20 % (1-10) H Eosinophils % (Manual) 3 % (0-3) Basophils % (Manual) 0 % (0-2) Band Neutrophils 0 % (0-8) Platelet Estimate Increased H Platelet Morphology Normal Hypochromasia 1+ Anisocytosis 1+ Erythrocyte Sedimentation Rate 32 MM/HR (0-20) H Sodium Level 138 MMOL/L (136-145) Potassium Level 4.5 MMOL/L (3.5-5.1) Chloride Level 101 MMOL/L (98-107) Carbon Dioxide Level 27 MMOL/L (21-32) Anion Gap 10 mmol/L (5-15) Blood Urea Nitrogen 38 mg/dL (7-18) H Creatinine 2.9 MG/DL (0.55-1.30) H Estimat Glomerular Filtration Rate 21.2 mL/min (>60) Glucose Level 77 MG/DL (74-106) # Lactic Acid Level 1.00 mmol/L (0.4-2.0) Calcium Level 9.1 MG/DL (8.5-10.1) Total Bilirubin 0.5 MG/DL (0.2-1.0) Aspartate Amino Transf (AST/SGOT) 133 U/L (15-37) H Alanine Aminotransferase (ALT/SGPT) 117 U/L (12-78) H Alkaline Phosphatase 269 U/L (46-116) H C-Reactive Protein, Quantitative 18.9 mg/dL (0.00-0.90) H Total Protein 9.6 G/DL (6.4-8.2) H Total Protein (PEP) Pending Albumin 1.9 G/DL (3.4-5.0) L Albumin (PEP) Pending Globulin 7.7 g/dL Globulin (PEP) Pending Albumin/Globulin Ratio Pending Grdnq-[id number] Pending [id number] Pending Beta Globulins Pending Beta Gamma Globulin Pending PEP Abnormal Protein Bands Pending Protein Electrophoresis Interpret Pending Amylase Level 48 U/L (25-115) Lipase 193 U/L (73-393) Test 10/06/19 05:24 POC Whole Blood Glucose 104 MG/DL (74-106) Current Medications Medications (Trade) Dose Ordered Sig/Leonel Route PRN Reason Start Time Stop Time Status Last Admin Dose Admin Acetaminophen (Tylenol) 650 mg Q4H PRN GT Mild Pain (Pain Scale 1-3) 09/21/19 12:45 10/21/19 12:44 10/04/19 16:25 Ampicillin Sodium/ Sulbactam Sodium 3 gm/Sodium Chloride 110 ml @ 220 mls/hr Q24H IVPB 10/02/19 13:00 10/09/19 12:59 10/05/19 15:37 Atorvastatin Calcium (Lipitor) 40 mg BEDTIME GT 08/09/19 21:00 11/07/19 20:59 10/05/19 20:43 Cefepime HCl 500 mg/Dextrose 55 ml @ 110 mls/hr Q24H IVPB 10/02/19 12:00 10/09/19 11:59 10/05/19 11:58 Chlorhexidine Gluconate (Felipa-Hex 2%) 1 applic DAILY@2000 TOPIC 09/12/19 20:00 12/11/19 19:59 10/05/19 20:42 Clonidine HCl (Catapres Tab) 0.1 mg Q4H PRN GT For High Blood Pressure 09/09/19 12:30 12/08/19 05:29 09/15/19 04:10 Dextrose (Dextrose 50%) 25 ml Q30M PRN IV Hypoglycemia 08/09/19 07:30 11/07/19 07:29 Dextrose (Dextrose 50%) 50 ml Q30M PRN IV Hypoglycemia 08/09/19 07:30 11/07/19 07:29 Diphenoxylate HCl/ Atropine (Lomotil) 2.5 mg QID PRN ORAL Diarrhea 09/24/19 08:45 10/24/19 08:44 Epoetin Andreas (Epoetin Andreas(ESRD on dialysis)) 10,000 unit WED-WED-WED SUBQ 09/20/19 21:00 12/19/19 20:59 10/04/19 21:17 Famotidine (Pepcid) 20 mg DAILY GT 08/30/19 09:00 11/28/19 08:59 10/06/19 09:15 Insulin Aspart (NovoLOG) Q6HR SUBQ 09/25/19 18:00 11/07/19 11:29 10/06/19 00:03 Lactobacillus Acidophilus (Culturelle) 1 tab EVERY 12 HOURS GT 10/03/19 21:00 12/13/19 17:59 10/06/19 09:14 Metoprolol Tartrate (Lopressor) 200 mg Q12HR GT 08/09/19 09:00 11/07/19 08:59 10/06/19 09:14 Minoxidil (Loniten) 5 mg DAILY GT 08/09/19 09:00 11/07/19 08:59 10/06/19 09:14 Zinc Oxide (Zinc Oxide) 1 applic EVERY 12 HOURS TOPIC 10/03/19 09:00 11/08/19 17:59 10/06/19 09:15 Farnaz Lyle MD Oct 06, 2019 10:55"
[2019-10-06 12:00] VITALS: BP 134/67
[2019-10-06] MEDS: Cefepime HCl 500 MG in D5W 55 ML IVPB SCH (12:31)
[2019-10-06] MEDS: Ampicillin/Sulbactam Sod 3 GM in NS 110 ML IVPB SCH (12:32)
--- NOTE | 2019-10-06 12:51 | NUR ---
RD ASSESSMENT & RECOMMENDATIONS SEE CARE ACTIVITY FOR COMPLETE ASSESSMENT DAILY ESTIMATED NEEDS: Needs based on Renal, critical care, wound/ 61kg 22-30 kcals/kg 3342-4246 total kcals 1.25-2 g protein/kg 76-122 g total protein Fluid per MD, now on HD NUTRITION DIAGNOSIS: * Swallowing difficulty R/T respiratory failure, dysphagia as evidenced by trach/vent dep, PEG dep * Increased kcal/prot needs R/T wound healing as evidenced by admitted w/ multiple pressure injuries including full thickness wounds at junction of Shaft of penis, dorsal scrotum, R elbow, and DTPI @ L buttocks. CURRENT TF:Osmolite 1.2 @ 60ml/hr x 20 hrs ENTERAL NUTRITION RECOMMENDATIONS: Vital AF 1.2 @ 60ml/hr x 20 hrs to provide 1200ml, 1440kcal, 90g prot, 973ml free water * Rec 20 hr run time for GI rest. -> W/ improved GI issues, rec previous TF formula of Vital AF 1.2, an elemental and carb controlled TF -> monitor lytes and renal fxn closely, monitor need for renal TF -> TF @ goal will provide 1642mg K and 2025mg Phos -> HOB over 30 degrees/ water flush per MD -------- IF TRIAL OF OSMOLITE 1.2 CONTINUES -> Goal of 60ml/hr for 20 hrs (4 hrs bowel rest) to provide 1200ml, 1440 kcal, 67g pro, 984ml free H2O, -> Rec to add prosource 1 pack daily (11g pro) to better meet est pro needs. -> Monitor BG, K closely. Pt would require increased insulin coverage as TF at goal would provide 56g more carbs per day. ADDITIONAL RECOMMENDATIONS: * Per SNF: HT=63" ZV=362 lbs (vs EMR wt of 166lbs) -> obtain re-calibrated bedscale wt, rec daily wt monitoring * Wound healing: con't Nephrovite + Garo BID/ Vit C dosing per Nephro * Monitor renal fxn and lytes closely w/ non-renal TF ->K low, phos wnl;updated mag level; rec increased insulin w/ BG labs * Monitor BGs w/ noncarb controlled TF, need for long acting insulin * Monitor stool output, need to change TF again
--- NOTE | 2019-10-06 13:20 | Surgery Progress Note ---
Surgery Progress Note Subjective Procedure Performed Right femoral temporary hemodialysis catheter removal Additional Comments no acute events stable comfortable Objective Last 24 Hour Vital Signs Date Time Temp Pulse Resp B/P (MAP) Pulse Ox O2 Delivery O2 Flow Rate FiO2 10/06/19 12:55 83 18 24 10/06/19 12:00 98.4 82 14 134/67 (89) 100 10/06/19 11:10 80 13 24 10/06/19 09:20 86 16 24 10/06/19 09:14 77 115/55 10/06/19 09:14 115/55 10/06/19 08:00 24 10/06/19 08:00 98.6 77 12 115/55 (75) 100 10/06/19 08:00 Mechanical Ventilator 10/06/19 07:43 74 10/06/19 07:00 79 13 24 10/06/19 05:07 81 12 24 10/06/19 04:00 Mechanical Ventilator 10/06/19 04:00 24 10/06/19 04:00 99.1 82 15 155/84 (107) 100 10/06/19 03:28 84 10/06/19 03:16 84 13 24 10/06/19 01:05 80 15 24 10/06/19 00:00 99.1 77 16 124/66 (85) 100 10/06/19 00:00 Mechanical Ventilator 10/05/19 23:34 76 10/05/19 22:50 73 14 24 10/05/19 21:13 77 13 24 10/05/19 20:44 88 126/55 10/05/19 20:00 98.1 67 14 118/67 (84) 100 10/05/19 20:00 Mechanical Ventilator 10/05/19 20:00 24 10/05/19 19:48 91 10/05/19 19:09 92 14 24 10/05/19 16:49 96 16 24 10/05/19 16:23 Mechanical Ventilator 10/05/19 16:00 24 10/05/19 16:00 97.7 93 18 130/65 (86) 100 10/05/19 16:00 94 10/05/19 14:37 88 15 24 I&O Intake and Output 10/05/19 10/06/19 19:00 07:00 Intake Total 880 ml 280 ml Output Total 2570 ml 100 ml Balance -1690 ml 180 ml Free Water 120 ml 40 ml IV Total 220 ml Tube Feeding 540 ml 240 ml Stool Total 70 ml 100 ml Hemodialysis UF 2500 ml Cardiovascular: RSR Respiratory: clear, decreased breath sounds Abdomen: soft, non-tender, present bowel sounds Extremities: no edema Laboratory Tests Test 10/05/19 17:37 10/05/19 23:54 10/06/19 03:20 10/06/19 05:24 POC Whole Blood Glucose 212 MG/DL (74-106) H 245 MG/DL (74-106) H 104 MG/DL (74-106) White Blood Count 18.0 K/UL (4.8-10.8) H Red Blood Count 3.91 M/UL (4.70-6.10) L Hemoglobin 9.6 G/DL (14.2-18.0) L Hematocrit 31.8 % (42.0-52.0) L Mean Corpuscular Volume 81 FL (80-99) Mean Corpuscular Hemoglobin 24.5 PG (27.0-31.0) L Mean Corpuscular Hemoglobin Concent 30.2 G/DL (32.0-36.0) L Red Cell Distribution Width 16.8 % (11.6-14.8) H Platelet Count 480 K/UL (150-450) H Mean Platelet Volume 5.5 FL (6.5-10.1) L Neutrophils (%) (Auto) % (45.0-75.0) Lymphocytes (%) (Auto) % (20.0-45.0) Monocytes (%) (Auto) % (1.0-10.0) Eosinophils (%) (Auto) % (0.0-3.0) Basophils (%) (Auto) % (0.0-2.0) Differential Total Cells Counted 100 Neutrophils % (Manual) 66 % (45-75) Lymphocytes % (Manual) 11 % (20-45) L Monocytes % (Manual) 20 % (1-10) H Eosinophils % (Manual) 3 % (0-3) Basophils % (Manual) 0 % (0-2) Band Neutrophils 0 % (0-8) Platelet Estimate Increased H Platelet Morphology Normal Hypochromasia 1+ Anisocytosis 1+ Erythrocyte Sedimentation Rate 32 MM/HR (0-20) H Sodium Level 138 MMOL/L (136-145) Potassium Level 4.5 MMOL/L (3.5-5.1) Chloride Level 101 MMOL/L (98-107) Carbon Dioxide Level 27 MMOL/L (21-32) Anion Gap 10 mmol/L (5-15) Blood Urea Nitrogen 38 mg/dL (7-18) H Creatinine 2.9 MG/DL (0.55-1.30) H Estimat Glomerular Filtration Rate 21.2 mL/min (>60) Glucose Level 77 MG/DL (74-106) # Lactic Acid Level 1.00 mmol/L (0.4-2.0) Calcium Level 9.1 MG/DL (8.5-10.1) Total Bilirubin 0.5 MG/DL (0.2-1.0) Aspartate Amino Transf (AST/SGOT) 133 U/L (15-37) H Alanine Aminotransferase (ALT/SGPT) 117 U/L (12-78) H Alkaline Phosphatase 269 U/L (46-116) H C-Reactive Protein, Quantitative 18.9 mg/dL (0.00-0.90) H Total Protein 9.6 G/DL (6.4-8.2) H Total Protein (PEP) Pending Albumin 1.9 G/DL (3.4-5.0) L Albumin (PEP) Pending Globulin 7.7 g/dL Globulin (PEP) Pending Albumin/Globulin Ratio Pending Pdzmo-9-Uqqnumefb Pending Povqa-9-Tcidgejkt Pending Beta Globulins Pending Beta Gamma Globulin Pending PEP Abnormal Protein Bands Pending Protein Electrophoresis Interpret Pending Amylase Level 48 U/L (25-115) Lipase 193 U/L (73-393) Test 10/06/19 12:26 POC Whole Blood Glucose Pending Plan Problems: (1) Anemia (2) Hyponatremia (3) Leukocytosis Assessment & Plan: Tracheostomy, left chest pacemaker are again demonstrated. There is bilateral interstitial and airspace disease and bilateral pleural fluid again demonstrated. This appears more severe than on the prior study. Bilateral interstitial and airspace infiltrates versus edema. Bilateral pleural effusions Leukocytosis, anemia, tachycardia, abnormal labs. Wound evaluated and likely etiology of patient's sepsis. Leukocytosis etiology work-up antibiotics per infectious disease Appreciate nephrology input transfuse with dialysis We will follow with recommendations thank you allowing participation's care plan HD access temp HD discussed with medical teams line okay HD as per renal persistent leukocytosis flow cyto noted improving trending down right fem line removed wbc fluctuating h/h stable lft's elevated (4) Ventilator dependent (5) Right lower lobe pneumonia (6) Hypokalemia (7) Hyperkalemia (8) Anasarca (9) Decubitus skin ulcer Assessment & Plan: pt presented on admission with generalized edemae.Skin assessed under tracheostomy and no areas of concerns noted. GT Insertion is marginally erythematous with small amt slough at stoma. Unstageable Pressure Injury R elbow. Base of wound is 100% yellow slough, Borders are erythematous. Wound oozing small amt haemopurulent exudate.Darker skin tone without elevation in skin temp or erythema periwound. Pt's penis and scrotum are grossly edematous and enlarged and weeping serous exudate from numerous sites both from penis and scrotum. Two small open wounds noted at base of at base of shaft of penis ,and contreras aspect of scrotum. Both wounds oozing large amt sanguineous and serosanguineous exudate. Multiple open wounds with Biofilm at base of each wounds noted to contreras/lateral,inferior and posterior aspects of scrotum. These wounds noted to be oozing moderate amts of serosanguineous exudate. Hypertrophic scar with scattered areas of hyperpigmentation noted to Sacrum. DTPI noted to L Buttocks (L)7cm x (W)9cm. Base of wound is purple and indurated.Darker skin tone without erythema, induration or fluctuance R and L ischial tuberosities. Both heels are boggy with non-blanchable erythema. Tx.Plan: Cleanse wound R elbow with Saline. Apply TheraHoney, Apply Moisture Barrier Paste periwound. Cover with Optifoam drsg.Change Daily and prn. Wash GT site with soap and water.Pat dry. Apply Zinc Oxide Paste to GT site Daily. Leave Open to Air. Apply Zinc Oxide Paste to entire Scrotum, Place ABD pads to R and L lateral, and posterior aspects of scrotum TWICE daily. Apply Cavilon Skin Barrier to malleoli and both Heels. Cover each site with Optifoam drsgs. Change every 7 days and prn. Reposition at least every 2hours or as tolerated. Off-load heels with Pillows. APM/BECCA Mattress overlay. (10) Malnutrition Assessment & Plan: DAILY ESTIMATED NEEDS: Needs based on Renal, critical care, wound/ 61kg 22-30 kcals/kg 3626-3271 total kcals 1.25-2 g protein/kg 76-122 g total protein Fluid per MD, now on HD NUTRITION DIAGNOSIS: * Swallowing difficulty R/T respiratory failure, dysphagia as evidenced by trach/vent dep, PEG dep * Increased kcal/prot needs R/T wound healing as evidenced by admitted w/ multiple pressure injuries including full thickness wounds at junction of Shaft of penis, dorsal scrotum, R elbow, and DTPI @ L buttocks. CURRENT TF:Osmolite 1.2 @ 60ml/hr x 20 hrs + Garo BID ENTERAL NUTRITION RECOMMENDATIONS: Vital AF 1.2 @ 60ml/hr x 20 hrs to provide 1200ml, 1440kcal, 90g prot, 973ml free water * Rec 20 hr run time for GI rest. -> W/ improved GI status, rec Vital AF 1.2, an elemental and carb controlled TF -> monitor lytes and renal fxn closely, monitor need for renal TF -> TF @ goal will provide 1642mg K and 2025mg Phos -> HOB over 30 degrees/ water flush per MD -------- Trial of Osmolite 1.2 continue for now- Goal of 60ml/hr for 20 hrs (4 hrs bowel rest) to provide 1200ml, 1440 kcal, 67g pro, 984ml free H2O, -> Rec to add prosource 1 pack daily (11g pro) to better meet est pro needs. -> Monitor BG, K closely. Pt would require increased insulin coverage as TF at goal would provide 56g more carbs per day. ADDITIONAL RECOMMENDATIONS: * Per SNF: HT=63" FV=383 lbs (vs EMR wt of 166lbs) -> obtain re-calibrated bedscale wt, rec daily wt monitoring * Wound healing: con't Nephrovite + Garo BID/ Vit C dosing per Nephro * Monitor renal fxn and lytes closely w/ non-renal TF ->K low, phos wnl;updated mag level; rec increased insulin w/ BG labs * Daily wts w/ drop to 118-20 lbs, rec to recalibrate for accurate CBW * Consider DC Miralax if medically appropriate: +rectal tube (11) Uremia (12) CKD (chronic kidney disease) stage 5, GFR less than 15 ml/min (13) Colon distention Assessment & Plan: discussed with GI likely functional as having lots of loose bm rectal tube kub f/u s/p colonoscopy - findings reviewed with GI improved cont diet as tolerated Marked distention of the sigmoid colon. 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 No evidence of bowel wall thickening or pneumatosis 12 mm focus of contrast enhancement in the right pectineus muscle. While nonspecific in appearance, appearance raises concern for a possible pseudoaneurysm. Ill- defined thickening of the pectus medius muscle could indicate some intramuscular hemorrhage. The above findings were phoned to Dr. Urias at the time of interpretation Large bilateral pleural effusions Hazy pulmonary parenchymal opacities as well as dense consolidative opacities most likely represent pulmonary edema, but could represent pneumonia Evidence of anasarca elsewhere, with generalized edema of the subcutaneous fat Bladder wall thickening, raises concern for cystitis. Avalos catheter in place Colonic diverticulosis. No evidence of diverticulitis. Tracheostomy Pacemaker Gastrostomy Jonathan rUias Oct 06, 2019 13:20
--- NOTE | 2019-10-06 14:06 | Nephrology Progress Note ---
Assessment/Plan Plan MOF ESRD - HD TTS. Anemia of CKD -TUYET. Subjective Subjective Obtunded. Objective Objective Last 24 Hour Vital Signs Date Time Temp Pulse Resp B/P (MAP) Pulse Ox O2 Delivery O2 Flow Rate FiO2 10/06/19 12:55 83 18 24 10/06/19 12:00 98.4 82 14 134/67 (89) 100 10/06/19 11:10 80 13 24 10/06/19 09:20 86 16 24 10/06/19 09:14 77 115/55 10/06/19 09:14 115/55 10/06/19 08:00 24 10/06/19 08:00 98.6 77 12 115/55 (75) 100 10/06/19 08:00 Mechanical Ventilator 10/06/19 07:43 74 10/06/19 07:00 79 13 24 10/06/19 05:07 81 12 24 10/06/19 04:00 Mechanical Ventilator 10/06/19 04:00 24 10/06/19 04:00 99.1 82 15 155/84 (107) 100 10/06/19 03:28 84 10/06/19 03:16 84 13 24 10/06/19 01:05 80 15 24 10/06/19 00:00 99.1 77 16 124/66 (85) 100 10/06/19 00:00 Mechanical Ventilator 10/05/19 23:34 76 10/05/19 22:50 73 14 24 10/05/19 21:13 77 13 24 10/05/19 20:44 88 126/55 10/05/19 20:00 98.1 67 14 118/67 (84) 100 10/05/19 20:00 Mechanical Ventilator 10/05/19 20:00 24 10/05/19 19:48 91 10/05/19 19:09 92 14 24 10/05/19 16:49 96 16 24 10/05/19 16:23 Mechanical Ventilator 10/05/19 16:00 24 10/05/19 16:00 97.7 93 18 130/65 (86) 100 10/05/19 16:00 94 10/05/19 14:37 88 15 24 Intake and Output 10/05/19 10/06/19 19:00 07:00 Intake Total 880 ml 280 ml Output Total 2570 ml 100 ml Balance -1690 ml 180 ml Free Water 120 ml 40 ml IV Total 220 ml Tube Feeding 540 ml 240 ml Stool Total 70 ml 100 ml Hemodialysis UF 2500 ml Laboratory Tests 10/05/19 17:37: POC Whole Blood Glucose 212H 10/05/19 23:54: POC Whole Blood Glucose 245H 10/06/19 03:20: White Blood Count 18.0H, Red Blood Count 3.91L, Hemoglobin 9.6L, Hematocrit 31.8L, Mean Corpuscular Volume 81, Mean Corpuscular Hemoglobin 24.5L, Mean Corpuscular Hemoglobin Concent 30.2L, Red Cell Distribution Width 16.8H, Platelet Count 480H, Mean Platelet Volume 5.5L, Neutrophils (%) (Auto) , Lymphocytes (%) (Auto) , Monocytes (%) (Auto) , Eosinophils (%) (Auto) , Basophils (%) (Auto) , Differential Total Cells Counted 100, Neutrophils % ( Manual) 66, Lymphocytes % (Manual) 11L, Monocytes % (Manual) 20H, Eosinophils % (Manual) 3, Basophils % (Manual) 0, Band Neutrophils 0, Platelet Estimate IncreasedH, Platelet Morphology Normal, Hypochromasia 1+, Anisocytosis 1+, Erythrocyte Sedimentation Rate 32H, Sodium Level 138, Potassium Level 4.5, Chloride Level 101, Carbon Dioxide Level 27, Anion Gap 10, Blood Urea Nitrogen 38H, Creatinine 2.9H, Estimat Glomerular Filtration Rate 21.2, Glucose Level 77# , Lactic Acid Level 1.00, Calcium Level 9.1, Total Bilirubin 0.5, Aspartate Amino Transf (AST/SGOT) 133H, Alanine Aminotransferase (ALT/SGPT) 117H, Alkaline Phosphatase 269H, C-Reactive Protein, Quantitative 18.9H, Total Protein 9.6H, Total Protein (PEP) [Pending], Albumin 1.9L, Albumin (PEP) [ Pending], Globulin 7.7, Globulin (PEP) [Pending], Albumin/Globulin Ratio [ Pending], Rlmmb-7-Eleszuaoj [Pending], Civnd-5-Pedrfeqjl [Pending], Beta Globulins [Pending], Beta Gamma Globulin [Pending], PEP Abnormal Protein Bands [ Pending], Protein Electrophoresis Interpret [Pending], Amylase Level 48, Lipase 193 10/06/19 05:24: POC Whole Blood Glucose 104 10/06/19 12:26: POC Whole Blood Glucose [Pending] Height (Feet): 5 Height (Inches): 10.00 Weight (Pounds): 121 Objective CV RR Trach [facility] S[facility]. BS + E No CCE Erica Pichardo MD Oct 06, 2019 14:06
--- NOTE | 2019-10-06 14:54 | NUR ---
NURSE NOTES: Called [facility] and spoke to [facility] regarding scheduled dialysis to be done tomorrow 10/[address] Daryl barlow. Staff confirmed the appointment.
[2019-10-06 16:00] VITALS: BP 144/64
--- NOTE | 2019-10-06 19:00 | NUR ---
NURSE NOTES: Annabelle Phan, dialysis nurse aware that patient going to have dialysis tomorrow 10/06.
--- NOTE | 2019-10-06 19:22 | NUR ---
NURSE HAND-OFF REPORT: Important Events on Shift: NONE Patient Status: FAIR Diet: OSMOLITE 1.2 @60 Pending Orders: HEMODIALYSIS TOMORROW WITH [facility] Pending Results/Labs: N/A Pending MD notification: Latest Vital Signs: Temperature 98.2 , Pulse 77 , B/P 144 /64 , Respiratory Rate 13 , O2 SAT 100 , Mechanical Ventilator, O2 Flow Rate 15.0 . Vital Sign Comment: EKG Rhythm: V-Paced Rhythm change?: N MD Notified?: N - MD Response: Latest Delacruz Fall Score: 70 Fall Risk: High Risk Safety Measures: Call light Within Reach, Bed Alarm Zone 1, Side Rails Side Rails x3, Bed position Low and Locked. Fall Precautions: Yellow Socks Report given to TAMICA MORROW
--- NOTE | 2019-10-06 19:33 | NUR ---
NURSE NOTES: Received report from Elizabeth RN, pt. in bed obtunded, no signs or symptoms of acute cardiac or respiratory distress noted, processing archivist on, call light within easy reach, bed alarm on, side rails up x's3 and safety brakes engaged, bed in low position, call light within easy reach, pt. appears to be tolerating current vent settings well- AC 12, TV 550, fio2 at 24% and peep 5- no distress noted, pt. appears to be tolerating current feeding via g tube Osmolite 1.2 @ 60cc/hr- no residual noted, rectal tube intact and draining to gravity, pt. is Anuric, per endorsement pt. is scheduled for HD tomorrow, pt. appears clean and dry, Rt. subclavian Perma cath for HD intact, LFA 20G IV intact and patent, safety measures continued, will continue with plan of care.
[2019-10-06 20:00] VITALS: BP 122/60
[2019-10-06] MEDS: Dyna-Hex 2% Top Sol 2oz TOPIC SCH (20:23)
[2019-10-06] MEDS: Atorvastatin 20mg tab GT SCH (20:24)
--- NOTE | 2019-10-06 20:29 | General Progress Note ---
Assessment/Plan Assessment/Plan: Assessment - abdominal distention, due to colonic dysmotility, - colonoscopy negative to hepatic flexure - diarrhea - presumed TF related - abnormal LFT - higher now, ? etiology - Anemia - leukocytosis - stool OB (+) - EGD --> gastritis - Renal failure - Anasarca - resp failure, trach - dysphagia, GT - encephalopathy, contracted - poor px Recommendations - continue TF - d/c Statin - If no recovery of LFT off of stating --> CT - rectal tube - roll side to side as feasible (hard due to severe contractions) - Elevate HOB - f/u labs - PPI - abx - supportive care Subjective Allergies: Coded Allergies: No Known Allergies (Unverified , 06/10/19) Subjective above noted tolerating feeds liquid stool 170 cc LFT higher- drawn yest and today abd ultrasound noted - liver nodularity, o/w negative Objective Last 24 Hour Vital Signs Date Time Temp Pulse Resp B/P (MAP) Pulse Ox O2 Delivery O2 Flow Rate FiO2 10/06/19 19:18 77 13 24 10/06/19 17:00 79 12 24 10/06/19 16:00 81 10/06/19 16:00 98.2 84 13 144/64 (90) 100 10/06/19 16:00 24 10/06/19 16:00 Mechanical Ventilator 10/06/19 14:51 82 15 24 10/06/19 12:55 83 18 24 10/06/19 12:00 98.4 82 14 134/67 (89) 100 10/06/19 12:00 Mechanical Ventilator 10/06/19 12:00 24 10/06/19 12:00 81 10/06/19 11:10 80 13 24 10/06/19 09:20 86 16 24 10/06/19 09:14 77 115/55 10/06/19 09:14 115/55 10/06/19 08:00 24 10/06/19 08:00 98.6 77 12 115/55 (75) 100 10/06/19 08:00 Mechanical Ventilator 10/06/19 07:43 74 10/06/19 07:00 79 13 24 10/06/19 05:07 81 12 24 10/06/19 04:00 Mechanical Ventilator 10/06/19 04:00 24 10/06/19 04:00 99.1 82 15 155/84 (107) 100 10/06/19 03:28 84 10/06/19 03:16 84 13 24 10/06/19 01:05 80 15 24 10/06/19 00:00 99.1 77 16 124/66 (85) 100 10/06/19 00:00 Mechanical Ventilator 10/05/19 23:34 76 10/05/19 22:50 73 14 24 10/05/19 21:13 77 13 24 10/05/19 20:44 88 126/55 Intake and Output 10/05/19 10/06/19 19:00 07:00 Intake Total 880 ml 280 ml Output Total 2570 ml 100 ml Balance -1690 ml 180 ml Free Water 120 ml 40 ml IV Total 220 ml Tube Feeding 540 ml 240 ml Stool Total 70 ml 100 ml Hemodialysis UF 2500 ml Laboratory Tests 10/05/19 23:54: POC Whole Blood Glucose 245H 10/06/19 03:20: White Blood Count 18.0H, Red Blood Count 3.91L, Hemoglobin 9.6L, Hematocrit 31.8L, Mean Corpuscular Volume 81, Mean Corpuscular Hemoglobin 24.5L, Mean Corpuscular Hemoglobin Concent 30.2L, Red Cell Distribution Width 16.8H, Platelet Count 480H, Mean Platelet Volume 5.5L, Neutrophils (%) (Auto) , Lymphocytes (%) (Auto) , Monocytes (%) (Auto) , Eosinophils (%) (Auto) , Basophils (%) (Auto) , Differential Total Cells Counted 100, Neutrophils % ( Manual) 66, Lymphocytes % (Manual) 11L, Monocytes % (Manual) 20H, Eosinophils % (Manual) 3, Basophils % (Manual) 0, Band Neutrophils 0, Platelet Estimate IncreasedH, Platelet Morphology Normal, Hypochromasia 1+, Anisocytosis 1+, Erythrocyte Sedimentation Rate 32H, Sodium Level 138, Potassium Level 4.5, Chloride Level 101, Carbon Dioxide Level 27, Anion Gap 10, Blood Urea Nitrogen 38H, Creatinine 2.9H, Estimat Glomerular Filtration Rate 21.2, Glucose Level 77# , Lactic Acid Level 1.00, Calcium Level 9.1, Total Bilirubin 0.5, Aspartate Amino Transf (AST/SGOT) 133H, Alanine Aminotransferase (ALT/SGPT) 117H, Alkaline Phosphatase 269H, C-Reactive Protein, Quantitative 18.9H, Total Protein 9.6H, Total Protein (PEP) [Pending], Albumin 1.9L, Albumin (PEP) [ Pending], Globulin 7.7, Globulin (PEP) [Pending], Albumin/Globulin Ratio [ Pending], Ngsmb-2-Yluzkssmi [Pending], Kfizn-0-Wyudbvrbp [Pending], Beta Globulins [Pending], Beta Gamma Globulin [Pending], PEP Abnormal Protein Bands [ Pending], Protein Electrophoresis Interpret [Pending], Amylase Level 48, Lipase 193 10/06/19 05:24: POC Whole Blood Glucose 104 10/06/19 12:26: POC Whole Blood Glucose [Pending] 10/06/19 17:22: POC Whole Blood Glucose [Pending] Height (Feet): 5 Height (Inches): 10.00 Weight (Pounds): 121 Objective Debilitated AA man NCAT (+) trach coarse BS RR abd less distended, anasarca, (+) GT, (+) rectal tube ext contracted Ronny Mustafa MD Oct 06, 2019 20:29
[2019-10-06] MEDS ORDERED: Epoetin Alfa-EPBX(ESRD on dialysis)4000 units/ml vial SUBQ SCH (21:00)
[2019-10-06] MEDS ORDERED: Epoetin Alfa-EPBX(ESRD on dialysis)2000 units/ml vial SUBQ SCH (21:00)
[2019-10-07] VITALS (7 sets, daily range): BP systolic 127–143; BP diastolic 53–77
--- NOTE | 2019-10-07 00:08 | NUR ---
NURSE NOTES: repositioned and turned pt- comfort measures provided- full bed bath given- oral care provided- will continue to monitor pt. and with plan of care.
--- NOTE | 2019-10-07 04:00 | NUR ---
NURSE NOTES: pt. appears to be resting comfortably- oral care provided, pt. appears to be tolerating current vent settings well- will continue to monitor pt. and with plan of care.
[2019-10-07 04:17] LABS: HEMATOCRIT 29.5 % (42.0-52.0); HEMOGLOBIN 8.9 G/DL (14.2-18.0); LYMPHOCYTES % (AUTO) 14.4 % (20.0-45.0); MEAN CORPUSCULAR VOLUME 80 FL (80-99); MONOCYTES % (AUTO) 9.5 % (1.0-10.0); PLATELET COUNT 453 K/UL (150-450); RED BLOOD COUNT 3.67 M/UL (4.70-6.10); RED CELL DISTRIBUTION WIDTH 16.2 % (11.6-14.8); WHITE BLOOD COUNT 17.9 K/UL (4.8-10.8)
[2019-10-07] MEDS: NovoLOG Insulin Flexpen SUBQ SCH ×4 (05:21→23:00)
--- NOTE | 2019-10-07 07:11 | NUR ---
NURSE HAND-OFF REPORT: Important Events on Shift:none Patient Status: stable Diet: Osmolite 1.2 @ 60cc/hr Pending Orders: Pending Results/Labs: Pending MD notification: Latest Vital Signs: Temperature 98.2 , Pulse 82 , B/P 135 /54 , Respiratory Rate 14 , O2 SAT 100 , Mechanical Ventilator, O2 Flow Rate 15.0 . Vital Sign Comment: EKG Rhythm: Sinus Rhythm Rhythm change?: N MD Notified?: N - MD Response: Latest Delacruz Fall Score: 70 Fall Risk: High Risk Safety Measures: Call light Within Reach, Bed Alarm Zone 1, Side Rails Side Rails x3, Bed position Low and Locked. Fall Precautions: Yellow Socks Report given to Brodie Bills- aware to f/u on any abnormal am labs.
--- NOTE | 2019-10-07 07:27 | NUR ---
NURSE NOTES: Received bedside report from China DAVEY. Pt. in bed, pt. obtunded, non-verbal. No sign of distress. On mech. vent. with setting AC12/VT550/Fi O2 at 24%/P5. HOB elevated at all times. On GTF Osmolite 1.2 at 60cc/hr. patent/intact. On hold from 6-10am. Rectal tube in placed patent/intact draining liquid brownish/yellowish stool. IV at left FA #20G. in placed. And perm-a-cath at right upper chest for HD. Bed in low position, locked. Call light within reach. Will cont. to monitor.
[2019-10-07] MEDS ORDERED: Heparin 1000 units/ml 1ml Vial INJ PRN (08:00)
[2019-10-07] MEDS ORDERED: Heparin Sod 1000 units/ml 10ml IV PRN (08:00)
[2019-10-07] MEDS: Lactobacillus-GG tablet GT SCH ×2 (08:29→20:24)
[2019-10-07] MEDS: Zinc Oxide Oint 2oz TOPIC SCH ×2 (08:30→20:24)
[2019-10-07] MEDS: Metoprolol Tartrate 100mg tab GT SCH ×2 (08:30→20:24)
[2019-10-07] MEDS: Minoxidil 2.5mg tab GT SCH (08:30)
--- NOTE | 2019-10-07 09:00 | NUR ---
NURSE NOTES: Pt. having dialysis at present.
--- NOTE | 2019-10-07 09:12 | Surgery Progress Note ---
Surgery Progress Note Subjective Procedure Performed Right femoral temporary hemodialysis catheter removal Additional Comments leukocytosis US noted exam unchanged Objective Last 24 Hour Vital Signs Date Time Temp Pulse Resp B/P (MAP) Pulse Ox O2 Delivery O2 Flow Rate FiO2 10/07/19 09:07 72 12 24 10/07/19 08:30 78 143/64 10/07/19 08:30 143/64 10/07/19 08:00 24 10/07/19 08:00 98.4 78 13 143/64 (90) 100 10/07/19 08:00 Mechanical Ventilator 10/07/19 07:45 78 10/07/19 07:28 76 12 24 10/07/19 05:14 82 14 24 10/07/19 04:00 Mechanical Ventilator 10/07/19 04:00 24 10/07/19 04:00 98.2 80 17 135/54 (81) 100 10/07/19 03:30 79 10/07/19 03:15 79 15 24 10/07/19 00:37 73 12 24 10/07/19 00:00 24 10/07/19 00:00 Mechanical Ventilator 10/07/19 00:00 98.2 71 17 129/53 (78) 100 10/06/19 23:47 73 10/06/19 23:25 76 16 24 10/06/19 20:33 79 12 24 10/06/19 20:23 87 122/60 10/06/19 20:00 24 10/06/19 20:00 98.1 87 16 122/60 (80) 100 10/06/19 20:00 Mechanical Ventilator 10/06/19 19:57 86 10/06/19 19:18 77 13 24 10/06/19 17:00 79 12 24 10/06/19 16:00 81 10/06/19 16:00 98.2 84 13 144/64 (90) 100 10/06/19 16:00 24 10/06/19 16:00 Mechanical Ventilator 10/06/19 14:51 82 15 24 10/06/19 12:55 83 18 24 10/06/19 12:00 98.4 82 14 134/67 (89) 100 10/06/19 12:00 Mechanical Ventilator 10/06/19 12:00 24 10/06/19 12:00 81 10/06/19 11:10 80 13 24 10/06/19 09:20 86 16 24 10/06/19 09:14 77 115/55 10/06/19 09:14 115/55 I&O Intake and Output 10/06/19 10/07/19 19:00 07:00 Intake Total 810 ml 710 ml Output Total 50 ml Balance 810 ml 660 ml Free Water 150 ml 50 ml Tube Feeding 660 ml 660 ml Stool Total 50 ml Dressing: other Wound: other Cardiovascular: RSR Respiratory: decreased breath sounds Abdomen: soft, non-tender, present bowel sounds Extremities: no tenderness, no cyanosis Laboratory Tests Test 10/06/19 12:26 10/06/19 17:22 10/06/19 22:35 10/07/19 02:45 POC Whole Blood Glucose Pending Pending Pending White Blood Count 17.9 K/UL (4.8-10.8) H Red Blood Count 3.67 M/UL (4.70-6.10) L Hemoglobin 8.9 G/DL (14.2-18.0) L Hematocrit 29.5 % (42.0-52.0) L Mean Corpuscular Volume 80 FL (80-99) Mean Corpuscular Hemoglobin 24.3 PG (27.0-31.0) L Mean Corpuscular Hemoglobin Concent 30.2 G/DL (32.0-36.0) L Red Cell Distribution Width 16.2 % (11.6-14.8) H Platelet Count 453 K/UL (150-450) H Mean Platelet Volume 5.9 FL (6.5-10.1) L Neutrophils (%) (Auto) 68.0 % (45.0-75.0) Lymphocytes (%) (Auto) 14.4 % (20.0-45.0) L Monocytes (%) (Auto) 9.5 % (1.0-10.0) Eosinophils (%) (Auto) 7.0 % (0.0-3.0) H Basophils (%) (Auto) 1.0 % (0.0-2.0) Test 10/07/19 05:08 POC Whole Blood Glucose Pending Plan Problems: (1) Anemia (2) Hyponatremia (3) Leukocytosis Assessment & Plan: Tracheostomy, left chest pacemaker are again demonstrated. There is bilateral interstitial and airspace disease and bilateral pleural fluid again demonstrated. This appears more severe than on the prior study. Bilateral interstitial and airspace infiltrates versus edema. Bilateral pleural effusions Leukocytosis, anemia, tachycardia, abnormal labs. Wound evaluated and likely etiology of patient's sepsis. Leukocytosis etiology work-up antibiotics per infectious disease Appreciate nephrology input transfuse with dialysis We will follow with recommendations thank you allowing participation's care plan HD access temp HD discussed with medical teams line okay HD as per renal persistent leukocytosis flow cyto noted improving trending down right fem line removed wbc fluctuating h/h stable lft's elevated There is a right pleural effusion Gallbladder demonstrates tiny wall adherent nonmobile echogenic foci, some possible mural calcifications, and comet tail artifact in the anterior wall. Patient unable to report sonographic Kent's sign. Common bile duct measures 4 mm in diameter. No intrahepatic biliary ductal dilatation. Liver demonstrates normal echogenicity, no focal abnormality. There is some surface nodularity. Portal vein and hepatic veins are patent. Pancreas is incompletely visualized due to overlying bowel gas, visualized portions are unremarkable. Spleen is unremarkable. Left kidney measures 8.7 cm in length. Right kidney measures 8.9 cm length. Both kidneys demonstrate increased echogenicity. There is no hydronephrosis. No focal abnormality . Abdominal aorta is partially obscured by bowel gas, visualized portions are non-aneurysmal . A gastrostomy is noted Impression: Tiny wall adherent nonmobile gallbladder echogenic foci, may reflect wall adherent calculi, small polyps, and/or pleural calcifications. Anterior wall comet tail artifact suggests foci of adenomyomatosis. Normal caliber common bile duct Possible hepatic surface nodularity, could indicate cirrhotic change Echogenic kidneys, consistent with medical renal disease. No hydronephrosis Right pleural effusion Gastrostomy Note nonvisualization of portions of the pancreas and abdominal aorta (4) Ventilator dependent (5) Right lower lobe pneumonia (6) Hypokalemia (7) Hyperkalemia (8) Anasarca (9) Decubitus skin ulcer Assessment & Plan: pt presented on admission with generalized edemae.Skin assessed under tracheostomy and no areas of concerns noted. GT Insertion is marginally erythematous with small amt slough at stoma. Unstageable Pressure Injury R elbow. Base of wound is 100% yellow slough, Borders are erythematous. Wound oozing small amt haemopurulent exudate.Darker skin tone without elevation in skin temp or erythema periwound. Pt's penis and scrotum are grossly edematous and enlarged and weeping serous exudate from numerous sites both from penis and scrotum. Two small open wounds noted at base of at base of shaft of penis ,and contreras aspect of scrotum. Both wounds oozing large amt sanguineous and serosanguineous exudate. Multiple open wounds with Biofilm at base of each wounds noted to contreras/lateral,inferior and posterior aspects of scrotum. These wounds noted to be oozing moderate amts of serosanguineous exudate. Hypertrophic scar with scattered areas of hyperpigmentation noted to Sacrum. DTPI noted to L Buttocks (L)7cm x (W)9cm. Base of wound is purple and indurated.Darker skin tone without erythema, induration or fluctuance R and L ischial tuberosities. Both heels are boggy with non-blanchable erythema. Tx.Plan: Cleanse wound R elbow with Saline. Apply TheraHoney, Apply Moisture Barrier Paste periwound. Cover with Optifoam drsg.Change Daily and prn. Wash GT site with soap and water.Pat dry. Apply Zinc Oxide Paste to GT site Daily. Leave Open to Air. Apply Zinc Oxide Paste to entire Scrotum, Place ABD pads to R and L lateral, and posterior aspects of scrotum TWICE daily. Apply Cavilon Skin Barrier to malleoli and both Heels. Cover each site with Optifoam drsgs. Change every 7 days and prn. Reposition at least every 2hours or as tolerated. Off-load heels with Pillows. APM/BECCA Mattress overlay. (10) Malnutrition Assessment & Plan: DAILY ESTIMATED NEEDS: Needs based on Renal, critical care, wound/ 61kg 22-30 kcals/kg 0431-2696 total kcals 1.25-2 g protein/kg 76-122 g total protein Fluid per MD, now on HD NUTRITION DIAGNOSIS: * Swallowing difficulty R/T respiratory failure, dysphagia as evidenced by trach/vent dep, PEG dep * Increased kcal/prot needs R/T wound healing as evidenced by admitted w/ multiple pressure injuries including full thickness wounds at junction of Shaft of penis, dorsal scrotum, R elbow, and DTPI @ L buttocks. CURRENT TF:Osmolite 1.2 @ 60ml/hr x 20 hrs + Garo BID ENTERAL NUTRITION RECOMMENDATIONS: Vital AF 1.2 @ 60ml/hr x 20 hrs to provide 1200ml, 1440kcal, 90g prot, 973ml free water * Rec 20 hr run time for GI rest. -> W/ improved GI status, rec Vital AF 1.2, an elemental and carb controlled TF -> monitor lytes and renal fxn closely, monitor need for renal TF -> TF @ goal will provide 1642mg K and 2025mg Phos -> HOB over 30 degrees/ water flush per MD -------- Trial of Osmolite 1.2 continue for now- Goal of 60ml/hr for 20 hrs (4 hrs bowel rest) to provide 1200ml, 1440 kcal, 67g pro, 984ml free H2O, -> Rec to add prosource 1 pack daily (11g pro) to better meet est pro needs. -> Monitor BG, K closely. Pt would require increased insulin coverage as TF at goal would provide 56g more carbs per day. ADDITIONAL RECOMMENDATIONS: * Per SNF: HT=63" YB=676 lbs (vs EMR wt of 166lbs) -> obtain re-calibrated bedscale wt, rec daily wt monitoring * Wound healing: con't Nephrovite + Garo BID/ Vit C dosing per Nephro * Monitor renal fxn and lytes closely w/ non-renal TF ->K low, phos wnl;updated mag level; rec increased insulin w/ BG labs * Daily wts w/ drop to 118-20 lbs, rec to recalibrate for accurate CBW * Consider DC Miralax if medically appropriate: +rectal tube (11) Uremia (12) CKD (chronic kidney disease) stage 5, GFR less than 15 ml/min (13) Colon distention Assessment & Plan: discussed with GI likely functional as having lots of loose bm rectal tube kub f/u s/p colonoscopy - findings reviewed with GI improved cont diet as tolerated Marked distention of the sigmoid colon. 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 No evidence of bowel wall thickening or pneumatosis 12 mm focus of contrast enhancement in the right pectineus muscle. While nonspecific in appearance, appearance raises concern for a possible pseudoaneurysm. Ill- defined thickening of the pectus medius muscle could indicate some intramuscular hemorrhage. The above findings were phoned to Dr. Urias at the time of interpretation Large bilateral pleural effusions Hazy pulmonary parenchymal opacities as well as dense consolidative opacities most likely represent pulmonary edema, but could represent pneumonia Evidence of anasarca elsewhere, with generalized edema of the subcutaneous fat Bladder wall thickening, raises concern for cystitis. Avalos catheter in place Colonic diverticulosis. No evidence of diverticulitis. Tracheostomy Pacemaker Gastrostomy Jonathan Urias Oct 07, 2019 09:12
--- NOTE | 2019-10-07 09:41 | Nephrology Progress Note ---
Assessment/Plan Problem List: (1) UTI (urinary tract infection) (2) VRE (vancomycin-resistant Enterococci) infection (3) Hyponatremia (4) CKD (chronic kidney disease) stage 5, GFR less than 15 ml/min (5) Malnutrition (6) Anasarca (7) Decubitus skin ulcer (8) Anemia (9) Ventilator dependent (10) Right lower lobe pneumonia Plan dialysis 10/06 cont pulm care HD TTS Subjective ROS Limited/Unobtainable: Yes Objective Objective Last 24 Hour Vital Signs Date Time Temp Pulse Resp B/P (MAP) Pulse Ox O2 Delivery O2 Flow Rate FiO2 10/07/19 09:07 72 12 24 10/07/19 08:30 78 143/64 10/07/19 08:30 143/64 10/07/19 08:00 24 10/07/19 08:00 98.4 78 13 143/64 (90) 100 10/07/19 08:00 Mechanical Ventilator 10/07/19 07:45 78 10/07/19 07:28 76 12 24 10/07/19 05:14 82 14 24 10/07/19 04:00 Mechanical Ventilator 10/07/19 04:00 24 10/07/19 04:00 98.2 80 17 135/54 (81) 100 10/07/19 03:30 79 10/07/19 03:15 79 15 24 10/07/19 00:37 73 12 24 10/07/19 00:00 24 10/07/19 00:00 Mechanical Ventilator 10/07/19 00:00 98.2 71 17 129/53 (78) 100 10/06/19 23:47 73 10/06/19 23:25 76 16 24 10/06/19 20:33 79 12 24 10/06/19 20:23 87 122/60 10/06/19 20:00 24 10/06/19 20:00 98.1 87 16 122/60 (80) 100 10/06/19 20:00 Mechanical Ventilator 10/06/19 19:57 86 10/06/19 19:18 77 13 24 10/06/19 17:00 79 12 24 10/06/19 16:00 81 10/06/19 16:00 98.2 84 13 144/64 (90) 100 10/06/19 16:00 24 10/06/19 16:00 Mechanical Ventilator 10/06/19 14:51 82 15 24 10/06/19 12:55 83 18 24 10/06/19 12:00 98.4 82 14 134/67 (89) 100 10/06/19 12:00 Mechanical Ventilator 10/06/19 12:00 24 10/06/19 12:00 81 10/06/19 11:10 80 13 24 Intake and Output 10/06/19 10/07/19 19:00 07:00 Intake Total 810 ml 710 ml Output Total 50 ml Balance 810 ml 660 ml Free Water 150 ml 50 ml Tube Feeding 660 ml 660 ml Stool Total 50 ml Laboratory Tests 10/06/19 12:26: POC Whole Blood Glucose [Pending] 10/06/19 17:22: POC Whole Blood Glucose [Pending] 10/06/19 22:35: POC Whole Blood Glucose [Pending] 10/07/19 02:45: White Blood Count 17.9H, Red Blood Count 3.67L, Hemoglobin 8.9L, Hematocrit 29.5L, Mean Corpuscular Volume 80, Mean Corpuscular Hemoglobin 24.3L, Mean Corpuscular Hemoglobin Concent 30.2L, Red Cell Distribution Width 16.2H, Platelet Count 453H, Mean Platelet Volume 5.9L, Neutrophils (%) (Auto) 68.0, Lymphocytes (%) (Auto) 14.4L, Monocytes (%) (Auto) 9.5, Eosinophils (%) (Auto) 7.0H, Basophils (%) (Auto) 1.0 10/07/19 05:08: POC Whole Blood Glucose [Pending] Height (Feet): 5 Height (Inches): 10.00 Weight (Pounds): 123 General Appearance: lethargic, confused Cardiovascular: regular rhythm Respiratory/Chest: lungs clear Abdomen: non tender Extremities: no edema Neurologic: unresponsive Carmelo Frank MD Oct 07, 2019 09:41
--- NOTE | 2019-10-07 11:30 | NUR ---
NURSE NOTES: S/p HD and 2L out. Pt. remain stable.
[2019-10-07] MEDS: Cefepime HCl 500 MG in D5W 55 ML IVPB SCH (12:11)
--- NOTE | 2019-10-07 13:16 | General Progress Note ---
Assessment/Plan Assessment/Plan: IMPRESSION: 1. anemia. 2. fevers improved 3. Leukocytosis. 4. hypotension 5. Acute on chronic renal failure. 6. Hyponatremia. 7. Severe protein-calorie malnutrition. 8. Significantly elevated C-reactive protein concerning for infectious etiology. 9. Tracheostomy, G-tube. 10. Ventilator dependence. 11. anasarca 12. Hematuria 13. V pacing 14. hyponatremia 15. transaminitis PLAN chronic care; unable to place care noted may need CT on vent/ no wean monitor labs and optimize ID follow up dialysis ongoing prognosis poor for recovery impression, plan, and exam edited and reviewed in detail care discussed with RN Subjective ROS Limited/Unobtainable: Yes Allergies: Coded Allergies: No Known Allergies (Unverified , 06/10/19) Subjective remains ill on vent/ no change on HD vitals noted Objective Last 24 Hour Vital Signs Date Time Temp Pulse Resp B/P (MAP) Pulse Ox O2 Delivery O2 Flow Rate FiO2 10/07/19 12:49 88 10/07/19 12:40 74 12 24 10/07/19 12:00 24 10/07/19 12:00 98.4 80 13 138/68 (91) 100 10/07/19 12:00 Mechanical Ventilator 10/07/19 11:22 78 13 24 10/07/19 09:07 72 12 24 10/07/19 08:30 78 143/64 10/07/19 08:30 143/64 10/07/19 08:00 24 10/07/19 08:00 98.4 78 13 143/64 (90) 100 10/07/19 08:00 Mechanical Ventilator 10/07/19 07:45 78 10/07/19 07:28 76 12 24 10/07/19 05:14 82 14 24 10/07/19 04:00 Mechanical Ventilator 10/07/19 04:00 24 10/07/19 04:00 98.2 80 17 135/54 (81) 100 10/07/19 03:30 79 10/07/19 03:15 79 15 24 10/07/19 00:37 73 12 24 10/07/19 00:00 24 10/07/19 00:00 Mechanical Ventilator 10/07/19 00:00 98.2 71 17 129/53 (78) 100 10/06/19 23:47 73 10/06/19 23:25 76 16 24 10/06/19 20:33 79 12 24 10/06/19 20:23 87 122/60 10/06/19 20:00 24 10/06/19 20:00 98.1 87 16 122/60 (80) 100 10/06/19 20:00 Mechanical Ventilator 10/06/19 19:57 86 10/06/19 19:18 77 13 24 10/06/19 17:00 79 12 24 10/06/19 16:00 81 10/06/19 16:00 98.2 84 13 144/64 (90) 100 10/06/19 16:00 24 10/06/19 16:00 Mechanical Ventilator 10/06/19 14:51 82 15 24 Intake and Output 10/06/19 10/07/19 19:00 07:00 Intake Total 810 ml 710 ml Output Total 50 ml Balance 810 ml 660 ml Free Water 150 ml 50 ml Tube Feeding 660 ml 660 ml Stool Total 50 ml Laboratory Tests 10/06/19 17:22: POC Whole Blood Glucose [Pending] 10/06/19 22:35: POC Whole Blood Glucose [Pending] 10/07/19 02:45: White Blood Count 17.9H, Red Blood Count 3.67L, Hemoglobin 8.9L, Hematocrit 29.5L, Mean Corpuscular Volume 80, Mean Corpuscular Hemoglobin 24.3L, Mean Corpuscular Hemoglobin Concent 30.2L, Red Cell Distribution Width 16.2H, Platelet Count 453H, Mean Platelet Volume 5.9L, Neutrophils (%) (Auto) 68.0, Lymphocytes (%) (Auto) 14.4L, Monocytes (%) (Auto) 9.5, Eosinophils (%) (Auto) 7.0H, Basophils (%) (Auto) 1.0 10/07/19 05:08: POC Whole Blood Glucose [Pending] Height (Feet): 5 Height (Inches): 10.00 Weight (Pounds): 123 Objective GENERAL: Ill-appearing male, chronically debilitated. HEENT: Tracheostomy in midline. Questionable fullness in the submandibular region. LUNGS: Coarse breath sounds. reduced breath sounds CARDIAC: S1, S2. Regular rate and rhythm. ABDOMEN: Soft. G-tube. EXTREMITIES: With noted edema. NEUROLOGICAL: Poorly responsive, weak diffusely. Ishaaya,Kain M MD Oct 07, 2019 13:16
--- NOTE | 2019-10-07 13:20 | General Progress Note ---
Assessment/Plan Assessment/Plan: Assessment - abdominal distention, due to colonic dysmotility, - colonoscopy negative to hepatic flexure - diarrhea - presumed TF related - abnormal LFT - higher now, ? etiology --> will check HIDA Wednesday - Anemia - leukocytosis - stool OB (+) - EGD --> gastritis - Renal failure - Anasarca - resp failure, trach - dysphagia, GT - encephalopathy, contracted - poor px Recommendations - continue TF - Off of Statin - Check HIDA Wednesday - rectal tube - roll side to side as feasible (hard due to severe contractions) - Elevate HOB - f/u labs - PPI - abx - supportive care Subjective Allergies: Coded Allergies: No Known Allergies (Unverified , 06/10/19) Subjective above noted tolerating feeds liquid stool 50 cc Objective Last 24 Hour Vital Signs Date Time Temp Pulse Resp B/P (MAP) Pulse Ox O2 Delivery O2 Flow Rate FiO2 10/07/19 12:49 88 10/07/19 12:40 74 12 24 10/07/19 12:00 24 10/07/19 12:00 98.4 80 13 138/68 (91) 100 10/07/19 12:00 Mechanical Ventilator 10/07/19 11:22 78 13 24 10/07/19 09:07 72 12 24 10/07/19 08:30 78 143/64 10/07/19 08:30 143/64 10/07/19 08:00 24 10/07/19 08:00 98.4 78 13 143/64 (90) 100 10/07/19 08:00 Mechanical Ventilator 10/07/19 07:45 78 10/07/19 07:28 76 12 24 10/07/19 05:14 82 14 24 10/07/19 04:00 Mechanical Ventilator 10/07/19 04:00 24 10/07/19 04:00 98.2 80 17 135/54 (81) 100 10/07/19 03:30 79 10/07/19 03:15 79 15 24 10/07/19 00:37 73 12 24 10/07/19 00:00 24 10/07/19 00:00 Mechanical Ventilator 10/07/19 00:00 98.2 71 17 129/53 (78) 100 10/06/19 23:47 73 10/06/19 23:25 76 16 24 10/06/19 20:33 79 12 24 10/06/19 20:23 87 122/60 10/06/19 20:00 24 10/06/19 20:00 98.1 87 16 122/60 (80) 100 10/06/19 20:00 Mechanical Ventilator 10/06/19 19:57 86 10/06/19 19:18 77 13 24 10/06/19 17:00 79 12 24 10/06/19 16:00 81 10/06/19 16:00 98.2 84 13 144/64 (90) 100 10/06/19 16:00 24 10/06/19 16:00 Mechanical Ventilator 10/06/19 14:51 82 15 24 Intake and Output 10/06/19 10/07/19 19:00 07:00 Intake Total 810 ml 710 ml Output Total 50 ml Balance 810 ml 660 ml Free Water 150 ml 50 ml Tube Feeding 660 ml 660 ml Stool Total 50 ml Laboratory Tests 10/06/19 17:22: POC Whole Blood Glucose [Pending] 10/06/19 22:35: POC Whole Blood Glucose [Pending] 10/07/19 02:45: White Blood Count 17.9H, Red Blood Count 3.67L, Hemoglobin 8.9L, Hematocrit 29.5L, Mean Corpuscular Volume 80, Mean Corpuscular Hemoglobin 24.3L, Mean Corpuscular Hemoglobin Concent 30.2L, Red Cell Distribution Width 16.2H, Platelet Count 453H, Mean Platelet Volume 5.9L, Neutrophils (%) (Auto) 68.0, Lymphocytes (%) (Auto) 14.4L, Monocytes (%) (Auto) 9.5, Eosinophils (%) (Auto) 7.0H, Basophils (%) (Auto) 1.0 10/07/19 05:08: POC Whole Blood Glucose [Pending] Height (Feet): 5 Height (Inches): 10.00 Weight (Pounds): 123 Objective Debilitated AA man NCAT (+) trach coarse BS RR abd less distended, anasarca, (+) GT, (+) rectal tube ext contracted Ronny Mustafa MD Oct 07, 2019 13:20
[2019-10-07] MEDS: Ampicillin/Sulbactam Sod 3 GM in NS 110 ML IVPB SCH (13:48)
--- NOTE | 2019-10-07 14:14 | NUR ---
CASE MANAGEMENT: REVIEW 10/07/2019 SI:SEPSIS. 98.4 80 13 138/68 100% ON MECH VENT FIO2 24 WBC 17.9 H/H 8.9/29.5 PLT 453 IS:LIPITOR PO QHS LONITEN GT QD LOPRESSOR GT Q12H INSULIN ASPART SUBQ Q6H CEFEPIME IV Q24H UNASYN IV Q24H HD TODAY SDU PLAN: [place] HIDA SCAN FOR WEDNESDAY
--- NOTE | 2019-10-07 14:18 | NUR ---
*-* INSURANCE *-* UPDATED CLINICALS AND REVIEWS HAVE BEEN FAXED TO: [facility] REF# [id number] RIC:HARPER P:[phone] F:[phone]
[2019-10-07 14:19] LABS: HEMATOCRIT 32.6 % (42.0-52.0); HEMOGLOBIN 9.9 G/DL (14.2-18.0); MEAN CORPUSCULAR VOLUME 80 FL (80-99); PLATELET COUNT 478 K/UL (150-450); RED BLOOD COUNT 4.06 M/UL (4.70-6.10); RED CELL DISTRIBUTION WIDTH 16.3 % (11.6-14.8)
[2019-10-07 14:58] LABS: ANION GAP 11 mmol/L (5-15); BLOOD UREA NITROGEN 36 mg/dL (7-18); CALCIUM 8.8 MG/DL (8.5-10.1); CARBON DIOXIDE 27 MMOL/L (21-32); CHLORIDE 96 MMOL/L (98-107); CREATININE 2.7 MG/DL (0.55-1.30); POTASSIUM 4.6 MMOL/L (3.5-5.1); SODIUM 134 MMOL/L (136-145)
[2019-10-07] MEDS ORDERED: Tubing IV Secondary IV ONE (18:10)
[2019-10-07] MEDS ORDERED: NS 275ml ONE (18:15)
--- NOTE | 2019-10-07 18:59 | NUR ---
NURSE HAND-OFF REPORT: Important Events on Shift: Pt. remain stable. Awaiting for SNF Subacute placement. Patient Status: Diet: Pending Orders: Pending Results/Labs: Pending MD notification: Latest Vital Signs: Temperature 97.5 , Pulse 74 , B/P 134 /54 , Respiratory Rate 13 , O2 SAT 99 , Mechanical Ventilator, O2 Flow Rate 15.0 . Vital Sign Comment: stable EKG Rhythm: Sinus Rhythm Rhythm change?: N MD Notified?: N - MD Response: Latest Delacruz Fall Score: 70 Fall Risk: High Risk Safety Measures: Call light Within Reach, Bed Alarm Zone 1, Side Rails Side Rails x3, Bed position Low and Locked. Fall Precautions: Yellow Socks Report given to .
--- NOTE | 2019-10-07 19:14 | NUR ---
NURSE NOTES: Received report from TAMICA Bills, pt. in bed obtunded, no signs or symptoms of acute cardiac or respiratory distress noted, alarm security or surveillance monitor on, call light within easy reach, bed alarm on, side rails up x's3 and safety brakes engaged, bed in low position, call light within easy reach, HOB elevated, pt. appears to be tolerating current vent settings well- AC 12, TV 550, fio2 at 24% and peep 5- no distress noted, pt. appears to be tolerating current feeding via g tube Osmolite 1.2 @ 60cc/hr- no residual noted, rectal tube intact and draining to gravity, pt. is Anuric, Rt. subclavian Perma cath for HD intact, LFA 20G IV intact and patent, safety measures continued, will continue with plan of care.
[2019-10-07] MEDS: Dyna-Hex 2% Top Sol 2oz TOPIC SCH (20:24)
[2019-10-07] MEDS: Acetaminophen 650mg/20.3ml GT PRN (23:28)
--- NOTE | 2019-10-07 23:51 | NUR ---
NURSE NOTES: full bed bath given, oral care provided, repositioned and turned pt., pt. appears to be tolerating current vent settings well- no distress noted- pt. appears to be tolerating current feedings- no residual noted- will continue to monitor pt. and plan of care.
[2019-10-08 03:34] VITALS: BP 138/72
[2019-10-08] MEDS: NovoLOG Insulin Flexpen SUBQ SCH ×4 (05:19→23:32)
[2019-10-08 06:13] LABS: BASOPHILS % (AUTO) 0.8 % (0.0-2.0); EOSINOPHILS % (AUTO) 6.2 % (0.0-3.0); HEMATOCRIT 33.5 % (42.0-52.0); HEMOGLOBIN 10.2 G/DL (14.2-18.0); LYMPHOCYTES % (AUTO) 14.7 % (20.0-45.0); MEAN CORPUSCULAR VOLUME 81 FL (80-99); MONOCYTES % (AUTO) 6.8 % (1.0-10.0); NEUTROPHILS % (AUTO) 71.5 % (45.0-75.0); PLATELET COUNT 505 K/UL (150-450); RED BLOOD COUNT 4.14 M/UL (4.70-6.10); RED CELL DISTRIBUTION WIDTH 16.8 % (11.6-14.8); WHITE BLOOD COUNT 16.8 K/UL (4.8-10.8)
[2019-10-08 06:40] LABS: ALANINE AMINOTRANSFERASE 130 U/L (12-78); ALBUMIN 1.9 G/DL (3.4-5.0); ALBUMIN/GLOBULIN RATIO 0.2 (1.0-2.7); ALKALINE PHOSPHATASE 312 U/L (46-116); ANION GAP 10 mmol/L (5-15); ASPARTATE AMINO TRANSFERASE 151 U/L (15-37); BILIRUBIN,TOTAL 0.5 MG/DL (0.2-1.0); BLOOD UREA NITROGEN 59 mg/dL (7-18); CARBON DIOXIDE 27 MMOL/L (21-32); CHLORIDE 95 MMOL/L (98-107); CREATININE 3.7 MG/DL (0.55-1.30); SODIUM 132 MMOL/L (136-145)
--- NOTE | 2019-10-08 07:30 | NUR ---
NURSE NOTES: Received bedside report from China DAVEY. Pt. in bed, obtunded. Occasionally eyes opens. No sign of distress. Mech. vent. dependence with setting AC12/VT550/Fi O2 of 24%/P5. No grimacing noted. HOB elevated at all times. On GTF Osmolite 1.2 at 60cc/hr. GTF held at present till 10am for limited dose. Perm-a-cath at right upper chest in placed. No bleeding at the site. Rectal tube in placed patent/intact draining brownish/yellowish liquid stool. Bed in low position, locked. Call light within reach. Will cont. to monitor.
--- NOTE | 2019-10-08 07:42 | Hematology/Onc Progress Note ---
Assessment/Plan Assessment/Plan Assessment/recs # Leukocytosis - with multiple infections, VRE UTI, flow is negative --> wbc trend 33-->28-->25->23->22->23->24->17.3-->17-->14->16-->15.6-->14-->14- >13->19->18->17->22->22->19->17-->18->20-->15-->14->16-->14-->17->18-->17 --> on abx, linezolid and zosyn--> zosyn-->gent-->off --> + blood cultures with coag neg staph likely contaminated --> as per id recs --> has ordered a flow cytometry (with pathology) --> does show increased nK cell activity --> JOURDAN 2 and bcr-abl labs ordered (these are send outs)->negative --> plt 585-->613-->649-->669->663-->529-->506 # Anemia due to chronic disease/kidney disease as well, gi bleed + occult + noted --> was on iron in the past, now on hold --> has been started on Epogen sq --> as per renal care --> egd done and shows gastritis --> on ppi --> egd showed gastritis, colo recently done --> hgb 9-->8.7-->7.6-->9.2-->8.9-->9.2->9.3-->8.8->9.9-->9.2-->8.1-->8.7-->7.9- ->8.6-->8.9-->8.2->9-->9.3->8.9-->9.5-->10.6->9.2-->10 --> spep ordered # Respiratory failure --> per pulm, s/p trach --> COVID 19 test negative x 2 # Hyperlipidemia --> statin po # Dysphagia s/p gtube with nepro --> per gi # ESRD with r fem julito --> hd as per renal # Dvt ppx scds Appreciate consultation and matt Rn Subjective Allergies: Coded Allergies: No Known Allergies (Unverified , 06/10/19) All Systems: reviewed and negative except above Subjective 08/15 meds noted, no bleeding, hgb 8.8, wbc 28, path flow pending 08/16 flow pending dw pathologist, results pending, wbc 25, hgb 9 08/17 labs reviewed, meds reviewed, meds noted, no night sweats 08/19 remains obtunded, on vent/trach, no bleeding wbc 21.7 08/20 labs have been reviewed, no bleeding, wbc still elev, path reviewed 08/21 labs are noted, no bleeding, on vent, wbc better 08/22 labs noted, no bleeding, meds reviewed, wbc 24 hgb 7.6 08/23 vent, off abx, c diff negative, h/h stable 08/24 labs reviewed, on abx, wbc 17, hgb 8.9, no hemolysis 08/26 reviewed flow and is negative for leukemia, matt rn 08/27 meds reviewed, no night sweats, matt rn, no major bleeding 08/28 meds reivewed, labs noted 08/29 wbc is stable, approx 15, hgb 8.8, no hemolysis 08/30 labs are noted, is for colo today, hgb 9.9 08/31 right fem julito in place, unchanged, hgb 9.2, gi aware 09/01 labs noted, hgb 8.8, plt >600, no bleeding 09/02 labs noted, no bleeding, with elev wbc still, no new changes 09/03 meds are noted, no bleeding, labs reviewed hgb 8.6 09/04 no major events, hd as per renal, abx, no bleeding hgb low 09/05 labs are noted, no bleeding, meds have been reviewed 09/06 no new labs no hemolysis, cbc is noted, no bleeding 09/07 meds reviewed, no bleeding, matt rn, permacath functioning well 09/09 meds reviewed, wbc still elevated, as per id recs, cbc noted 09/10 is obtunded, with gutbe in place, labs reviewed 8/4 obtunded, as per id, observe now off abx, labs noted, wbc 19 09/12 cbc is pending, remains on epogen, also off abx 09/13 labs reviewed, no bleeding, elev wbc, no night sweats 09/14 meds noted, no bleeding, wbc 19, hgb 9.5, no night sweats 09/21 obtunded, remains on vent, labs noted, no bleeding, hgb 8.9 09/22 obtunded, labs noted, no bleeding, on vent, unchanged 09/23 unchanges, wbc remains elevated 20k, on abx, on vent 09/24 labs have been reviewed, no bleeding, wbc 15, may need abx 09/25 formula gtube changed, labs noted, remains obtunded, hgb 9.3 09/26 labs have been reviewed, no bleeding, matt rn, no night sweats 09/27 meds reviewed, no bleeding, wbc 14, on abx, remains obtunded 09/28 remains obtunded, no bleeding, wbc better, hgb 8.9, no hemolysis, plt 506 09/30 on colisitn, wbc elevated, cefepime added per id, hgb stable 10/01 labs reviewed, no bleeding, matt rn, no major events noted, wbc 14, hgb 10.6 10/02 labs have been noted, hgb 9.2, wbc 17, on abx, matt rn 10/03 continue on tube feeds, no bleeding, on vent, wbc remains elevated 10/04 remains ibtunded, is on a mechanical ventilator with tube feeds noted 10/05 labs are noted, hgb 8.6, wbc remains elevated, have ordered for spep 10/07 obtunded on vent, with gtube feeds, labs reviewed, matt rn Objective Objective Current Medications Medications (Trade) Dose Ordered Sig/Leonel Route PRN Reason Start Time Stop Time Status Last Admin Dose Admin Acetaminophen (Tylenol) 650 mg Q4H PRN GT Mild Pain (Pain Scale 1-3) 09/21/19 12:45 10/21/19 12:44 10/07/19 23:28 Ampicillin Sodium/ Sulbactam Sodium 3 gm/Sodium Chloride 110 ml @ 220 mls/hr Q24H IVPB 10/02/19 13:00 10/09/19 12:59 10/07/19 13:48 Cefepime HCl 500 mg/Dextrose 55 ml @ 110 mls/hr Q24H IVPB 10/02/19 12:00 10/09/19 11:59 10/07/19 12:11 Chlorhexidine Gluconate (Felipa-Hex 2%) 1 applic DAILY@1999 TOPIC 09/12/19 20:00 12/11/19 19:59 10/07/19 20:24 Clonidine HCl (Catapres Tab) 0.1 mg Q4H PRN GT For High Blood Pressure 09/09/19 12:30 12/08/19 05:29 09/15/19 04:10 Dextrose (Dextrose 50%) 25 ml Q30M PRN IV Hypoglycemia 08/09/19 07:30 11/07/19 07:29 Dextrose (Dextrose 50%) 50 ml Q30M PRN IV Hypoglycemia 08/09/19 07:30 11/07/19 07:29 Diphenoxylate HCl/ Atropine (Lomotil) 2.5 mg QID PRN ORAL Diarrhea 09/24/19 08:45 10/24/19 08:44 Epoetin Andreas (Epoetin Andreas(ESRD on dialysis)) 10,000 unit WED-WED-WED SUBQ 10/09/19 21:00 01/07/20 20:59 Famotidine (Pepcid) 20 mg DAILY GT 08/30/19 09:00 11/28/19 08:59 10/07/19 08:30 Insulin Aspart (NovoLOG) Q6HR SUBQ 09/25/19 18:00 11/07/19 11:29 10/08/19 05:19 Lactobacillus Acidophilus (Culturelle) 1 tab EVERY 12 HOURS GT 10/03/19 21:00 12/13/19 17:59 10/07/19 20:24 Metoprolol Tartrate (Lopressor) 200 mg Q12HR GT 08/09/19 09:00 11/07/19 08:59 10/07/19 20:24 Minoxidil (Loniten) 5 mg DAILY GT 08/09/19 09:00 11/07/19 08:59 10/07/19 08:30 Zinc Oxide (Zinc Oxide) 1 applic EVERY 12 HOURS TOPIC 10/03/19 09:00 11/08/19 17:59 10/07/19 20:24 Last 24 Hour Vital Signs Date Time Temp Pulse Resp B/P (MAP) Pulse Ox O2 Delivery O2 Flow Rate FiO2 10/08/19 05:20 87 16 24 10/08/19 04:00 24 10/08/19 04:00 Mechanical Ventilator 10/08/19 03:34 98.2 89 18 138/72 (94) 100 10/08/19 03:25 88 19 24 10/08/19 03:24 87 10/08/19 01:25 88 17 24 10/08/19 00:00 24 10/08/19 00:00 Mechanical Ventilator 10/07/19 23:28 99.0 10/07/19 23:27 99.6 84 18 141/77 (98) 100 10/07/19 23:25 84 10/07/19 23:00 83 19 24 10/07/19 21:30 80 19 24 10/07/19 20:24 72 127/61 10/07/19 20:00 97.9 70 18 127/61 (83) 100 10/07/19 20:00 Mechanical Ventilator 10/07/19 20:00 24 10/07/19 19:24 87 10/07/19 19:00 78 19 24 10/07/19 16:44 74 13 24 10/07/19 16:00 Mechanical Ventilator 10/07/19 16:00 24 10/07/19 16:00 97.5 77 17 134/54 (80) 99 10/07/19 15:41 76 10/07/19 15:09 75 14 24 10/07/19 12:49 88 10/07/19 12:40 74 12 24 10/07/19 12:00 24 10/07/19 12:00 98.4 80 13 138/68 (91) 100 10/07/19 12:00 Mechanical Ventilator 10/07/19 11:22 78 13 24 10/07/19 09:07 72 12 24 10/07/19 08:30 78 143/64 10/07/19 08:30 143/64 10/07/19 08:00 24 10/07/19 08:00 98.4 78 13 143/64 (90) 100 10/07/19 08:00 Mechanical Ventilator 10/07/19 07:45 78 10/07/19 07:28 76 12 24 10/07/19 05:14 82 14 24 10/07/19 04:00 Mechanical Ventilator 10/07/19 04:00 24 10/07/19 04:00 98.2 80 17 135/54 (81) 100 10/07/19 03:30 79 10/07/19 03:15 79 15 24 10/07/19 00:37 73 12 24 10/07/19 00:00 24 10/07/19 00:00 Mechanical Ventilator 10/07/19 00:00 98.2 71 17 129/53 (78) 100 10/06/19 23:47 73 10/06/19 23:25 76 16 24 10/06/19 20:33 79 12 24 10/06/19 20:23 87 122/60 10/06/19 20:00 24 10/06/19 20:00 98.1 87 16 122/60 (80) 100 10/06/19 20:00 Mechanical Ventilator 10/06/19 19:57 86 10/06/19 19:18 77 13 24 10/06/19 17:00 79 12 24 10/06/19 16:00 81 10/06/19 16:00 98.2 84 13 144/64 (90) 100 10/06/19 16:00 24 10/06/19 16:00 Mechanical Ventilator 10/06/19 14:51 82 15 24 10/06/19 12:55 83 18 24 10/06/19 12:00 98.4 82 14 134/67 (89) 100 10/06/19 12:00 Mechanical Ventilator 10/06/19 12:00 24 10/06/19 12:00 81 10/06/19 11:10 80 13 24 10/06/19 09:20 86 16 24 10/06/19 09:14 77 115/55 10/06/19 09:14 115/55 10/06/19 08:00 24 10/06/19 08:00 98.6 77 12 115/55 (75) 100 10/06/19 08:00 Mechanical Ventilator 10/06/19 07:43 74 Intake and Output 10/07/19 10/08/19 19:00 07:00 Intake Total 570 ml 710 ml Output Total 2000 ml 100 ml Balance -1430 ml 610 ml Free Water 150 ml 50 ml Tube Feeding 420 ml 660 ml Stool Total 100 ml Hemodialysis UF 2000 ml Labs Test 8/27/20 11:10 10/05/19 17:37 10/05/19 23:54 10/06/19 03:20 POC Whole Blood Glucose 115 MG/DL (74-106) 212 MG/DL (74-106) 245 MG/DL (74-106) White Blood Count 18.0 K/UL (4.8-10.8) Red Blood Count 3.91 M/UL (4.70-6.10) Hemoglobin 9.6 G/DL (14.2-18.0) Hematocrit 31.8 % (42.0-52.0) Mean Corpuscular Volume 81 FL (80-99) Mean Corpuscular Hemoglobin 24.5 PG (27.0-31.0) Mean Corpuscular Hemoglobin Concent 30.2 G/DL (32.0-36.0) Red Cell Distribution Width 16.8 % (11.6-14.8) Platelet Count 480 K/UL (150-450) Mean Platelet Volume 5.5 FL (6.5-10.1) Neutrophils (%) (Auto) % (45.0-75.0) Lymphocytes (%) (Auto) % (20.0-45.0) Monocytes (%) (Auto) % (1.0-10.0) Eosinophils (%) (Auto) % (0.0-3.0) Basophils (%) (Auto) % (0.0-2.0) Differential Total Cells Counted 100 Neutrophils % (Manual) 66 % (45-75) Lymphocytes % (Manual) 11 % (20-45) Monocytes % (Manual) 20 % (1-10) Eosinophils % (Manual) 3 % (0-3) Basophils % (Manual) 0 % (0-2) Band Neutrophils 0 % (0-8) Platelet Estimate Increased Platelet Morphology Normal Hypochromasia 1+ Anisocytosis 1+ Erythrocyte Sedimentation Rate 32 MM/HR (0-20) Sodium Level 138 MMOL/L (136-145) Potassium Level 4.5 MMOL/L (3.5-5.1) Chloride Level 101 MMOL/L (98-107) Carbon Dioxide Level 27 MMOL/L (21-32) Anion Gap 10 mmol/L (5-15) Blood Urea Nitrogen 38 mg/dL (7-18) Creatinine 2.9 MG/DL (0.55-1.30) Estimat Glomerular Filtration Rate 21.2 mL/min (>60) Glucose Level 77 MG/DL (74-106) Lactic Acid Level 1.00 mmol/L (0.4-2.0) Calcium Level 9.1 MG/DL (8.5-10.1) Total Bilirubin 0.5 MG/DL (0.2-1.0) Aspartate Amino Transf (AST/SGOT) 133 U/L (15-37) Alanine Aminotransferase (ALT/SGPT) 117 U/L (12-78) Alkaline Phosphatase 269 U/L (46-116) C-Reactive Protein, Quantitative 18.9 mg/dL (0.00-0.90) Total Protein 9.6 G/DL (6.4-8.2) Albumin 1.9 G/DL (3.4-5.0) Globulin 7.7 g/dL Albumin/Globulin Ratio 0.2 (1.0-2.7) Amylase Level 48 U/L (25-115) Lipase 193 U/L (73-393) Test 10/06/19 05:24 10/06/19 12:26 10/06/19 17:22 10/06/19 22:35 POC Whole Blood Glucose 104 MG/DL (74-106) Test 10/07/19 02:45 10/07/19 05:08 10/07/19 13:55 10/07/19 22:56 White Blood Count 17.9 K/UL (4.8-10.8) 20.0 K/UL (4.8-10.8) Red Blood Count 3.67 M/UL (4.70-6.10) 4.06 M/UL (4.70-6.10) Hemoglobin 8.9 G/DL (14.2-18.0) 9.9 G/DL (14.2-18.0) Hematocrit 29.5 % (42.0-52.0) 32.6 % (42.0-52.0) Mean Corpuscular Volume 80 FL (80-99) 80 FL (80-99) Mean Corpuscular Hemoglobin 24.3 PG (27.0-31.0) 24.3 PG (27.0-31.0) Mean Corpuscular Hemoglobin Concent 30.2 G/DL (32.0-36.0) 30.3 G/DL (32.0-36.0) Red Cell Distribution Width 16.2 % (11.6-14.8) 16.3 % (11.6-14.8) Platelet Count 453 K/UL (150-450) 478 K/UL (150-450) Mean Platelet Volume 5.9 FL (6.5-10.1) 5.8 FL (6.5-10.1) Neutrophils (%) (Auto) 68.0 % (45.0-75.0) % (45.0-75.0) Lymphocytes (%) (Auto) 14.4 % (20.0-45.0) % (20.0-45.0) Monocytes (%) (Auto) 9.5 % (1.0-10.0) % (1.0-10.0) Eosinophils (%) (Auto) 7.0 % (0.0-3.0) % (0.0-3.0) Basophils (%) (Auto) 1.0 % (0.0-2.0) % (0.0-2.0) Differential Total Cells Counted 100 Neutrophils % (Manual) 64 % (45-75) Lymphocytes % (Manual) 25 % (20-45) Monocytes % (Manual) 6 % (1-10) Eosinophils % (Manual) 4 % (0-3) Basophils % (Manual) 0 % (0-2) Band Neutrophils 1 % (0-8) Platelet Estimate Increased Platelet Morphology Normal Hypochromasia 1+ Anisocytosis 1+ Microcytosis 1+ Macrocytosis Occasional Sodium Level 134 MMOL/L (136-145) Potassium Level 4.6 MMOL/L (3.5-5.1) Chloride Level 96 MMOL/L (98-107) Carbon Dioxide Level 27 MMOL/L (21-32) Anion Gap 11 mmol/L (5-15) Blood Urea Nitrogen 36 mg/dL (7-18) Creatinine 2.7 MG/DL (0.55-1.30) Estimat Glomerular Filtration Rate 23.0 mL/min (>60) Glucose Level 126 MG/DL (74-106) Calcium Level 8.8 MG/DL (8.5-10.1) Test 10/08/19 04:07 10/08/19 05:14 White Blood Count 16.8 K/UL (4.8-10.8) Red Blood Count 4.14 M/UL (4.70-6.10) Hemoglobin 10.2 G/DL (14.2-18.0) Hematocrit 33.5 % (42.0-52.0) Mean Corpuscular Volume 81 FL (80-99) Mean Corpuscular Hemoglobin 24.6 PG (27.0-31.0) Mean Corpuscular Hemoglobin Concent 30.4 G/DL (32.0-36.0) Red Cell Distribution Width 16.8 % (11.6-14.8) Platelet Count 505 K/UL (150-450) Mean Platelet Volume 5.9 FL (6.5-10.1) Neutrophils (%) (Auto) 71.5 % (45.0-75.0) Lymphocytes (%) (Auto) 14.7 % (20.0-45.0) Monocytes (%) (Auto) 6.8 % (1.0-10.0) Eosinophils (%) (Auto) 6.2 % (0.0-3.0) Basophils (%) (Auto) 0.8 % (0.0-2.0) Sodium Level 132 MMOL/L (136-145) Potassium Level 5.0 MMOL/L (3.5-5.1) Chloride Level 95 MMOL/L (98-107) Carbon Dioxide Level 27 MMOL/L (21-32) Anion Gap 10 mmol/L (5-15) Blood Urea Nitrogen 59 mg/dL (7-18) Creatinine 3.7 MG/DL (0.55-1.30) Estimat Glomerular Filtration Rate 16.0 mL/min (>60) Glucose Level 229 MG/DL (74-106) Calcium Level 9.0 MG/DL (8.5-10.1) Total Bilirubin 0.5 MG/DL (0.2-1.0) Aspartate Amino Transf (AST/SGOT) 151 U/L (15-37) Alanine Aminotransferase (ALT/SGPT) 130 U/L (12-78) Alkaline Phosphatase 312 U/L (46-116) Total Protein 9.6 G/DL (6.4-8.2) Albumin 1.9 G/DL (3.4-5.0) Globulin 7.7 g/dL Albumin/Globulin Ratio 0.2 (1.0-2.7) Height (Feet): 5 Height (Inches): 10.00 Weight (Pounds): 121 Objective Physical Exam General Appearance: nad, Chronically Ill Head: normocephalic Eyes: right eye PERRL - Will not open left eye ENT: moist mucus membranes Neck: other - submandibular mass R, fairly rigid with resistance to rotation to L, tracheotomy Respiratory: decreased breath sounds, crackles, other - pacemaker, vent+ Cardiovascular: regular rate, rhythm, edema - anasarca Gastrointestinal: non tender, distended, other - G tube Genitourinary: other Musculoskeletal: other - Contractures all extremities Neurologic: sensory intact, motor weakness, responsive Psychiatric: other Skin: Decubitus/Ulcer - Stage III right elbow, stage III left elbow, stage II sacrum, stage III scrotum, warm/dry Fitz Campos MD Oct 08, 2019 07:42
[2019-10-08 08:00] VITALS: BP 134/63
[2019-10-08] MEDS: Metoprolol Tartrate 100mg tab GT SCH ×2 (08:39→20:24)
[2019-10-08] MEDS: Lactobacillus-GG tablet GT SCH ×2 (08:39→20:23)
[2019-10-08] MEDS: Zinc Oxide Oint 2oz TOPIC SCH ×2 (08:40→20:23)
[2019-10-08] MEDS: Minoxidil 2.5mg tab GT SCH (08:40)
--- NOTE | 2019-10-08 10:28 | Nephrology Progress Note ---
Assessment/Plan Problem List: (1) UTI (urinary tract infection) (2) VRE (vancomycin-resistant Enterococci) infection (3) Hyponatremia (4) CKD (chronic kidney disease) stage 5, GFR less than 15 ml/min (5) Malnutrition (6) Anasarca (7) Decubitus skin ulcer (8) Anemia (9) Ventilator dependent (10) Right lower lobe pneumonia Plan dialysis 10/06 cont pulm care HD TTS Subjective ROS Limited/Unobtainable: Yes Objective Objective Last 24 Hour Vital Signs Date Time Temp Pulse Resp B/P (MAP) Pulse Ox O2 Delivery O2 Flow Rate FiO2 10/08/19 09:05 89 16 24 10/08/19 08:40 134/63 10/08/19 08:39 89 134/63 10/08/19 08:10 90 18 24 10/08/19 08:00 24 10/08/19 08:00 98.6 89 15 134/63 (86) 99 10/08/19 08:00 Mechanical Ventilator 10/08/19 07:50 89 10/08/19 05:20 87 16 24 10/08/19 04:00 24 10/08/19 04:00 Mechanical Ventilator 10/08/19 03:34 98.2 89 18 138/72 (94) 100 10/08/19 03:25 88 19 24 10/08/19 03:24 87 10/08/19 01:25 88 17 24 10/08/19 00:00 24 10/08/19 00:00 Mechanical Ventilator 10/07/19 23:28 99.0 10/07/19 23:27 99.6 84 18 141/77 (98) 100 10/07/19 23:25 84 10/07/19 23:00 83 19 24 10/07/19 21:30 80 19 24 10/07/19 20:24 72 127/61 10/07/19 20:00 97.9 70 18 127/61 (83) 100 10/07/19 20:00 Mechanical Ventilator 10/07/19 20:00 24 10/07/19 19:24 87 10/07/19 19:00 78 19 24 10/07/19 16:44 74 13 24 10/07/19 16:00 Mechanical Ventilator 10/07/19 16:00 24 10/07/19 16:00 97.5 77 17 134/54 (80) 99 10/07/19 15:41 76 10/07/19 15:09 75 14 24 10/07/19 12:49 88 10/07/19 12:40 74 12 24 10/07/19 12:00 24 10/07/19 12:00 98.4 80 13 138/68 (91) 100 10/07/19 12:00 Mechanical Ventilator 10/07/19 11:22 78 13 24 Intake and Output 10/07/19 10/08/19 19:00 07:00 Intake Total 570 ml 710 ml Output Total 2000 ml 100 ml Balance -1430 ml 610 ml Free Water 150 ml 50 ml Tube Feeding 420 ml 660 ml Stool Total 100 ml Hemodialysis UF 2000 ml Laboratory Tests 10/07/19 13:55: White Blood Count 20.0H, Red Blood Count 4.06L, Hemoglobin 9.9L, Hematocrit 32.6L, Mean Corpuscular Volume 80, Mean Corpuscular Hemoglobin 24.3L, Mean Corpuscular Hemoglobin Concent 30.3L, Red Cell Distribution Width 16.3H, Platelet Count 478H, Mean Platelet Volume 5.8L, Neutrophils (%) (Auto) , Lymphocytes (%) (Auto) , Monocytes (%) (Auto) , Eosinophils (%) (Auto) , Basophils (%) (Auto) , Differential Total Cells Counted 100, Neutrophils % ( Manual) 64, Lymphocytes % (Manual) 25, Monocytes % (Manual) 6, Eosinophils % ( Manual) 4H, Basophils % (Manual) 0, Band Neutrophils 1, Platelet Estimate IncreasedH, Platelet Morphology Normal, Hypochromasia 1+, Anisocytosis 1+, Microcytosis 1+, Macrocytosis Occasional, Sodium Level 134L, Potassium Level 4.6 , Chloride Level 96L, Carbon Dioxide Level 27, Anion Gap 11, Blood Urea Nitrogen 36H, Creatinine 2.7H, Estimat Glomerular Filtration Rate 23.0, Glucose Level 126H, Calcium Level 8.8 10/07/19 22:56: POC Whole Blood Glucose [Pending] 10/08/19 04:07: White Blood Count 16.8H, Red Blood Count 4.14L, Hemoglobin 10.2L, Hematocrit 33.5L, Mean Corpuscular Volume 81, Mean Corpuscular Hemoglobin 24.6L, Mean Corpuscular Hemoglobin Concent 30.4L, Red Cell Distribution Width 16.8H, Platelet Count 505H, Mean Platelet Volume 5.9L, Neutrophils (%) (Auto) 71.5, Lymphocytes (%) (Auto) 14.7L, Monocytes (%) (Auto) 6.8, Eosinophils (%) (Auto) 6.2H, Basophils (%) (Auto) 0.8, Sodium Level 132L, Potassium Level 5.0, Chloride Level 95L, Carbon Dioxide Level 27, Anion Gap 10, Blood Urea Nitrogen 59H, Creatinine 3.7H, Estimat Glomerular Filtration Rate 16.0, Glucose Level 229 #H, Calcium Level 9.0, Total Bilirubin 0.5, Aspartate Amino Transf (AST/SGOT) 151H, Alanine Aminotransferase (ALT/SGPT) 130H, Alkaline Phosphatase 312H, Total Protein 9.6H, Albumin 1.9L, Globulin 7.7, Albumin/Globulin Ratio 0.2L 10/08/19 05:14: POC Whole Blood Glucose [Pending] Height (Feet): 5 Height (Inches): 10.00 Weight (Pounds): 121 General Appearance: lethargic, confused Cardiovascular: regular rhythm Respiratory/Chest: other - on vent Abdomen: non tender Extremities: no edema Neurologic: unresponsive Carmelo Frank MD Oct 08, 2019 10:28
--- NOTE | 2019-10-08 10:47 | Infectious Diseases Prog Note ---
Assessment/Plan Assessment/Plan A: 1. Pneumonia with Acinetobacter & Proteus treated COVID19 X2 : negative 2. ESRD on HD 3. Leukocytosis 4. Respiratory failure, Ventilator dependent 5. Anemia 6. Anasarca 7. 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 Klebsiella catheter infection s/p removal 10. Diarrhea, C. difficile negative PLAN: 1. Discontinue Unasyn & Cefepime 2. Observe off of antibiotic Subjective ROS Limited/Unobtainable: Yes Allergies: Coded Allergies: No Known Allergies (Unverified , 06/10/19) Objective Last 24 Hour Vital Signs Date Time Temp Pulse Resp B/P (MAP) Pulse Ox O2 Delivery O2 Flow Rate FiO2 10/08/19 09:05 89 16 24 10/08/19 08:40 134/63 10/08/19 08:39 89 134/63 10/08/19 08:10 90 18 24 10/08/19 08:00 24 10/08/19 08:00 98.6 89 15 134/63 (86) 99 10/08/19 08:00 Mechanical Ventilator 10/08/19 07:50 89 10/08/19 05:20 87 16 24 10/08/19 04:00 24 10/08/19 04:00 Mechanical Ventilator 10/08/19 03:34 98.2 89 18 138/72 (94) 100 10/08/19 03:25 88 19 24 10/08/19 03:24 87 10/08/19 01:25 88 17 24 10/08/19 00:00 24 10/08/19 00:00 Mechanical Ventilator 10/07/19 23:28 99.0 10/07/19 23:27 99.6 84 18 141/77 (98) 100 10/07/19 23:25 84 10/07/19 23:00 83 19 24 10/07/19 21:30 80 19 24 10/07/19 20:24 72 127/61 10/07/19 20:00 97.9 70 18 127/61 (83) 100 10/07/19 20:00 Mechanical Ventilator 10/07/19 20:00 24 10/07/19 19:24 87 10/07/19 19:00 78 19 24 10/07/19 16:44 74 13 24 10/07/19 16:00 Mechanical Ventilator 10/07/19 16:00 24 10/07/19 16:00 97.5 77 17 134/54 (80) 99 10/07/19 15:41 76 10/07/19 15:09 75 14 24 10/07/19 12:49 88 10/07/19 12:40 74 12 24 10/07/19 12:00 24 10/07/19 12:00 98.4 80 13 138/68 (91) 100 10/07/19 12:00 Mechanical Ventilator 10/07/19 11:22 78 13 24 Height (Feet): 5 Height (Inches): 10.00 Weight (Pounds): 121 HEENT: mucous membranes moist, status post trach Respiratory/Chest: decreased breath sounds, other - on ventilator Cardiovascular: normal rate Abdomen: soft, non tender, other - GT feeding Extremities: no edema Neurologic/Psychiatric: aphasia, other - opens eyes Laboratory Tests Test 10/07/19 13:55 10/07/19 22:56 10/08/19 04:07 10/08/19 05:14 White Blood Count 20.0 K/UL (4.8-10.8) H 16.8 K/UL (4.8-10.8) H Red Blood Count 4.06 M/UL (4.70-6.10) L 4.14 M/UL (4.70-6.10) L Hemoglobin 9.9 G/DL (14.2-18.0) L 10.2 G/DL (14.2-18.0) L Hematocrit 32.6 % (42.0-52.0) L 33.5 % (42.0-52.0) L Mean Corpuscular Volume 80 FL (80-99) 81 FL (80-99) Mean Corpuscular Hemoglobin 24.3 PG (27.0-31.0) L 24.6 PG (27.0-31.0) L Mean Corpuscular Hemoglobin Concent 30.3 G/DL (32.0-36.0) L 30.4 G/DL (32.0-36.0) L Red Cell Distribution Width 16.3 % (11.6-14.8) H 16.8 % (11.6-14.8) H Platelet Count 478 K/UL (150-450) H 505 K/UL (150-450) H Mean Platelet Volume 5.8 FL (6.5-10.1) L 5.9 FL (6.5-10.1) L Neutrophils (%) (Auto) % (45.0-75.0) 71.5 % (45.0-75.0) Lymphocytes (%) (Auto) % (20.0-45.0) 14.7 % (20.0-45.0) L Monocytes (%) (Auto) % (1.0-10.0) 6.8 % (1.0-10.0) Eosinophils (%) (Auto) % (0.0-3.0) 6.2 % (0.0-3.0) H Basophils (%) (Auto) % (0.0-2.0) 0.8 % (0.0-2.0) Differential Total Cells Counted 100 Neutrophils % (Manual) 64 % (45-75) Lymphocytes % (Manual) 25 % (20-45) Monocytes % (Manual) 6 % (1-10) Eosinophils % (Manual) 4 % (0-3) H Basophils % (Manual) 0 % (0-2) Band Neutrophils 1 % (0-8) Platelet Estimate Increased H Platelet Morphology Normal Hypochromasia 1+ Anisocytosis 1+ Microcytosis 1+ Macrocytosis Occasional Sodium Level 134 MMOL/L (136-145) L 132 MMOL/L (136-145) L Potassium Level 4.6 MMOL/L (3.5-5.1) 5.0 MMOL/L (3.5-5.1) Chloride Level 96 MMOL/L (98-107) L 95 MMOL/L (98-107) L Carbon Dioxide Level 27 MMOL/L (21-32) 27 MMOL/L (21-32) Anion Gap 11 mmol/L (5-15) 10 mmol/L (5-15) Blood Urea Nitrogen 36 mg/dL (7-18) H 59 mg/dL (7-18) H Creatinine 2.7 MG/DL (0.55-1.30) H 3.7 MG/DL (0.55-1.30) H Estimat Glomerular Filtration Rate 23.0 mL/min (>60) 16.0 mL/min (>60) Glucose Level 126 MG/DL (74-106) H 229 MG/DL (74-106) #H Calcium Level 8.8 MG/DL (8.5-10.1) 9.0 MG/DL (8.5-10.1) POC Whole Blood Glucose Pending Pending Total Bilirubin 0.5 MG/DL (0.2-1.0) Aspartate Amino Transf (AST/SGOT) 151 U/L (15-37) H Alanine Aminotransferase (ALT/SGPT) 130 U/L (12-78) H Alkaline Phosphatase 312 U/L (46-116) H Total Protein 9.6 G/DL (6.4-8.2) H Albumin 1.9 G/DL (3.4-5.0) L Globulin 7.7 g/dL Albumin/Globulin Ratio 0.2 (1.0-2.7) L Current Medications Medications (Trade) Dose Ordered Sig/Leonel Route PRN Reason Start Time Stop Time Status Last Admin Dose Admin Acetaminophen (Tylenol) 650 mg Q4H PRN GT Mild Pain (Pain Scale 1-3) 09/21/19 12:45 10/21/19 12:44 10/07/19 23:28 Ampicillin Sodium/ Sulbactam Sodium 3 gm/Sodium Chloride 110 ml @ 220 mls/hr Q24H IVPB 10/02/19 13:00 10/09/19 12:59 10/07/19 13:48 Cefepime HCl 500 mg/Dextrose 55 ml @ 110 mls/hr Q24H IVPB 10/02/19 12:00 10/09/19 11:59 10/07/19 12:11 Chlorhexidine Gluconate (Felipa-Hex 2%) 1 applic DAILY@2000 TOPIC 09/12/19 20:00 12/11/19 19:59 10/07/19 20:24 Clonidine HCl (Catapres Tab) 0.1 mg Q4H PRN GT For High Blood Pressure 09/09/19 12:30 12/08/19 05:29 09/15/19 04:10 Dextrose (Dextrose 50%) 25 ml Q30M PRN IV Hypoglycemia 08/09/19 07:30 11/07/19 07:29 Dextrose (Dextrose 50%) 50 ml Q30M PRN IV Hypoglycemia 08/09/19 07:30 11/07/19 07:29 Diphenoxylate HCl/ Atropine (Lomotil) 2.5 mg QID PRN ORAL Diarrhea 09/24/19 08:45 10/24/19 08:44 Epoetin Andreas (Epoetin Andreas(ESRD on dialysis)) 10,000 unit WED- SUBQ 10/09/19 21:00 01/07/20 20:59 Famotidine (Pepcid) 20 mg DAILY GT 08/30/19 09:00 11/28/19 08:59 10/08/19 08:39 Insulin Aspart (NovoLOG) Q6HR SUBQ 09/25/19 18:00 11/07/19 11:29 10/08/19 05:19 Lactobacillus Acidophilus (Culturelle) 1 tab EVERY 12 HOURS GT 10/03/19 21:00 12/13/19 17:59 10/08/19 08:39 Metoprolol Tartrate (Lopressor) 200 mg Q12HR GT 08/09/19 09:00 11/07/19 08:59 10/08/19 08:39 Minoxidil (Loniten) 5 mg DAILY GT 08/09/19 09:00 11/07/19 08:59 10/08/19 08:40 Zinc Oxide (Zinc Oxide) 1 applic EVERY 12 HOURS TOPIC 10/03/19 09:00 11/08/19 17:59 10/08/19 08:40 Real De Leon MD Oct 08, 2019 10:47
--- NOTE | 2019-10-08 10:57 | General Progress Note ---
Assessment/Plan Assessment/Plan: IMPRESSION: 1. anemia. 2. fevers improved 3. Leukocytosis. 4. hypotension 5. Acute on chronic renal failure. 6. Hyponatremia. 7. Severe protein-calorie malnutrition. 8. Significantly elevated C-reactive protein concerning for infectious etiology. 9. Tracheostomy, G-tube. 10. Ventilator dependence. 11. anasarca 12. Hematuria 13. V pacing 14. hyponatremia 15. transaminitis PLAN chronic care; unable to place care noted may need CT on vent/ no wean monitor labs and optimize ID follow up dialysis ongoing prognosis poor for recovery impression, plan, and exam edited and reviewed in detail care discussed with RN Subjective ROS Limited/Unobtainable: Yes Allergies: Coded Allergies: No Known Allergies (Unverified , 06/10/19) Subjective remains ill on vent/ no change on HD vitals noted Objective Last 24 Hour Vital Signs Date Time Temp Pulse Resp B/P (MAP) Pulse Ox O2 Delivery O2 Flow Rate FiO2 10/08/19 09:05 89 16 24 10/08/19 08:40 134/63 10/08/19 08:39 89 134/63 10/08/19 08:10 90 18 24 10/08/19 08:00 24 10/08/19 08:00 98.6 89 15 134/63 (86) 99 10/08/19 08:00 Mechanical Ventilator 10/08/19 07:50 89 10/08/19 05:20 87 16 24 10/08/19 04:00 24 10/08/19 04:00 Mechanical Ventilator 10/08/19 03:34 98.2 89 18 138/72 (94) 100 10/08/19 03:25 88 19 24 10/08/19 03:24 87 10/08/19 01:25 88 17 24 10/08/19 00:00 24 10/08/19 00:00 Mechanical Ventilator 10/07/19 23:28 99.0 10/07/19 23:27 99.6 84 18 141/77 (98) 100 10/07/19 23:25 84 10/07/19 23:00 83 19 24 10/07/19 21:30 80 19 24 10/07/19 20:24 72 127/61 10/07/19 20:00 97.9 70 18 127/61 (83) 100 8/29/20 20:00 Mechanical Ventilator 10/07/19 20:00 24 10/07/19 19:24 87 10/07/19 19:00 78 19 24 10/07/19 16:44 74 13 24 10/07/19 16:00 Mechanical Ventilator 10/07/19 16:00 24 10/07/19 16:00 97.5 77 17 134/54 (80) 99 10/07/19 15:41 76 10/07/19 15:09 75 14 24 10/07/19 12:49 88 10/07/19 12:40 74 12 24 10/07/19 12:00 24 10/07/19 12:00 98.4 80 13 138/68 (91) 100 10/07/19 12:00 Mechanical Ventilator 10/07/19 11:22 78 13 24 Intake and Output 10/07/19 10/08/19 19:00 07:00 Intake Total 570 ml 710 ml Output Total 2000 ml 100 ml Balance -1430 ml 610 ml Free Water 150 ml 50 ml Tube Feeding 420 ml 660 ml Stool Total 100 ml Hemodialysis UF 2000 ml Laboratory Tests 10/07/19 13:55: White Blood Count 20.0H, Red Blood Count 4.06L, Hemoglobin 9.9L, Hematocrit 32.6L, Mean Corpuscular Volume 80, Mean Corpuscular Hemoglobin 24.3L, Mean Corpuscular Hemoglobin Concent 30.3L, Red Cell Distribution Width 16.3H, Platelet Count 478H, Mean Platelet Volume 5.8L, Neutrophils (%) (Auto) , Lymphocytes (%) (Auto) , Monocytes (%) (Auto) , Eosinophils (%) (Auto) , Basophils (%) (Auto) , Differential Total Cells Counted 100, Neutrophils % ( Manual) 64, Lymphocytes % (Manual) 25, Monocytes % (Manual) 6, Eosinophils % ( Manual) 4H, Basophils % (Manual) 0, Band Neutrophils 1, Platelet Estimate IncreasedH, Platelet Morphology Normal, Hypochromasia 1+, Anisocytosis 1+, Microcytosis 1+, Macrocytosis Occasional, Sodium Level 134L, Potassium Level 4.6 , Chloride Level 96L, Carbon Dioxide Level 27, Anion Gap 11, Blood Urea Nitrogen 36H, Creatinine 2.7H, Estimat Glomerular Filtration Rate 23.0, Glucose Level 126H, Calcium Level 8.8 10/07/19 22:56: POC Whole Blood Glucose [Pending] 10/08/19 04:07: White Blood Count 16.8H, Red Blood Count 4.14L, Hemoglobin 10.2L, Hematocrit 33.5L, Mean Corpuscular Volume 81, Mean Corpuscular Hemoglobin 24.6L, Mean Corpuscular Hemoglobin Concent 30.4L, Red Cell Distribution Width 16.8H, Platelet Count 505H, Mean Platelet Volume 5.9L, Neutrophils (%) (Auto) 71.5, Lymphocytes (%) (Auto) 14.7L, Monocytes (%) (Auto) 6.8, Eosinophils (%) (Auto) 6.2H, Basophils (%) (Auto) 0.8, Sodium Level 132L, Potassium Level 5.0, Chloride Level 95L, Carbon Dioxide Level 27, Anion Gap 10, Blood Urea Nitrogen 59H, Creatinine 3.7H, Estimat Glomerular Filtration Rate 16.0, Glucose Level 229 #H, Calcium Level 9.0, Total Bilirubin 0.5, Aspartate Amino Transf (AST/SGOT) 151H, Alanine Aminotransferase (ALT/SGPT) 130H, Alkaline Phosphatase 312H, Total Protein 9.6H, Albumin 1.9L, Globulin 7.7, Albumin/Globulin Ratio 0.2L 10/08/19 05:14: POC Whole Blood Glucose [Pending] Height (Feet): 5 Height (Inches): 10.00 Weight (Pounds): 121 Objective GENERAL: Ill-appearing male, chronically debilitated. HEENT: Tracheostomy in midline. Questionable fullness in the submandibular region. LUNGS: Coarse breath sounds. reduced breath sounds CARDIAC: S1, S2. Regular rate and rhythm. ABDOMEN: Soft. G-tube. EXTREMITIES: With noted edema. NEUROLOGICAL: Poorly responsive, weak diffusely. Kain Ramirez MD Oct 08, 2019 10:57
[2019-10-08 12:00] VITALS: BP 142/70
--- NOTE | 2019-10-08 12:36 | Surgery Progress Note ---
Surgery Progress Note Subjective Procedure Performed Right femoral temporary hemodialysis catheter removal Additional Comments leukocytosis h/h stable no n/v comfortable appearing on support Objective Last 24 Hour Vital Signs Date Time Temp Pulse Resp B/P (MAP) Pulse Ox O2 Delivery O2 Flow Rate FiO2 10/08/19 11:05 94 20 24 10/08/19 09:05 89 16 24 10/08/19 08:40 134/63 10/08/19 08:39 89 134/63 10/08/19 08:10 90 18 24 10/08/19 08:00 24 10/08/19 08:00 98.6 89 15 134/63 (86) 99 10/08/19 08:00 Mechanical Ventilator 10/08/19 07:50 89 10/08/19 05:20 87 16 24 10/08/19 04:00 24 10/08/19 04:00 Mechanical Ventilator 10/08/19 03:34 98.2 89 18 138/72 (94) 100 10/08/19 03:25 88 19 24 10/08/19 03:24 87 10/08/19 01:25 88 17 24 10/08/19 00:00 24 10/08/19 00:00 Mechanical Ventilator 10/07/19 23:28 99.0 10/07/19 23:27 99.6 84 18 141/77 (98) 100 10/07/19 23:25 84 10/07/19 23:00 83 19 24 10/07/19 21:30 80 19 24 10/07/19 20:24 72 127/61 10/07/19 20:00 97.9 70 18 127/61 (83) 100 10/07/19 20:00 Mechanical Ventilator 10/07/19 20:00 24 10/07/19 19:24 87 10/07/19 19:00 78 19 24 10/07/19 16:44 74 13 24 10/07/19 16:00 Mechanical Ventilator 10/07/19 16:00 24 10/07/19 16:00 97.5 77 17 134/54 (80) 99 10/07/19 15:41 76 10/07/19 15:09 75 14 24 10/07/19 12:49 88 10/07/19 12:40 74 12 24 I&O Intake and Output 10/07/19 10/08/19 19:00 07:00 Intake Total 570 ml 710 ml Output Total 2000 ml 100 ml Balance -1430 ml 610 ml Free Water 150 ml 50 ml Tube Feeding 420 ml 660 ml Stool Total 100 ml Hemodialysis UF 2000 ml Dressing: other Wound: other Cardiovascular: RSR Respiratory: decreased breath sounds Abdomen: soft, non-tender, present bowel sounds Extremities: no edema, no tenderness, no cyanosis, other Laboratory Tests Test 10/07/19 13:55 10/07/19 22:56 10/08/19 04:07 10/08/19 05:14 White Blood Count 20.0 K/UL (4.8-10.8) H 16.8 K/UL (4.8-10.8) H Red Blood Count 4.06 M/UL (4.70-6.10) L 4.14 M/UL (4.70-6.10) L Hemoglobin 9.9 G/DL (14.2-18.0) L 10.2 G/DL (14.2-18.0) L Hematocrit 32.6 % (42.0-52.0) L 33.5 % (42.0-52.0) L Mean Corpuscular Volume 80 FL (80-99) 81 FL (80-99) Mean Corpuscular Hemoglobin 24.3 PG (27.0-31.0) L 24.6 PG (27.0-31.0) L Mean Corpuscular Hemoglobin Concent 30.3 G/DL (32.0-36.0) L 30.4 G/DL (32.0-36.0) L Red Cell Distribution Width 16.3 % (11.6-14.8) H 16.8 % (11.6-14.8) H Platelet Count 478 K/UL (150-450) H 505 K/UL (150-450) H Mean Platelet Volume 5.8 FL (6.5-10.1) L 5.9 FL (6.5-10.1) L Neutrophils (%) (Auto) % (45.0-75.0) 71.5 % (45.0-75.0) Lymphocytes (%) (Auto) % (20.0-45.0) 14.7 % (20.0-45.0) L Monocytes (%) (Auto) % (1.0-10.0) 6.8 % (1.0-10.0) Eosinophils (%) (Auto) % (0.0-3.0) 6.2 % (0.0-3.0) H Basophils (%) (Auto) % (0.0-2.0) 0.8 % (0.0-2.0) Differential Total Cells Counted 100 Neutrophils % (Manual) 64 % (45-75) Lymphocytes % (Manual) 25 % (20-45) Monocytes % (Manual) 6 % (1-10) Eosinophils % (Manual) 4 % (0-3) H Basophils % (Manual) 0 % (0-2) Band Neutrophils 1 % (0-8) Platelet Estimate Increased H Platelet Morphology Normal Hypochromasia 1+ Anisocytosis 1+ Microcytosis 1+ Macrocytosis Occasional Sodium Level 134 MMOL/L (136-145) L 132 MMOL/L (136-145) L Potassium Level 4.6 MMOL/L (3.5-5.1) 5.0 MMOL/L (3.5-5.1) Chloride Level 96 MMOL/L (98-107) L 95 MMOL/L (98-107) L Carbon Dioxide Level 27 MMOL/L (21-32) 27 MMOL/L (21-32) Anion Gap 11 mmol/L (5-15) 10 mmol/L (5-15) Blood Urea Nitrogen 36 mg/dL (7-18) H 59 mg/dL (7-18) H Creatinine 2.7 MG/DL (0.55-1.30) H 3.7 MG/DL (0.55-1.30) H Estimat Glomerular Filtration Rate 23.0 mL/min (>60) 16.0 mL/min (>60) Glucose Level 126 MG/DL (74-106) H 229 MG/DL (74-106) #H Calcium Level 8.8 MG/DL (8.5-10.1) 9.0 MG/DL (8.5-10.1) POC Whole Blood Glucose Pending Pending Total Bilirubin 0.5 MG/DL (0.2-1.0) Aspartate Amino Transf (AST/SGOT) 151 U/L (15-37) H Alanine Aminotransferase (ALT/SGPT) 130 U/L (12-78) H Alkaline Phosphatase 312 U/L (46-116) H Total Protein 9.6 G/DL (6.4-8.2) H Albumin 1.9 G/DL (3.4-5.0) L Globulin 7.7 g/dL Albumin/Globulin Ratio 0.2 (1.0-2.7) L Plan Problems: (1) Anemia (2) Hyponatremia (3) Leukocytosis Assessment & Plan: Tracheostomy, left chest pacemaker are again demonstrated. There is bilateral interstitial and airspace disease and bilateral pleural fluid again demonstrated. This appears more severe than on the prior study. Bilateral interstitial and airspace infiltrates versus edema. Bilateral pleural effusions Leukocytosis, anemia, tachycardia, abnormal labs. Wound evaluated and likely etiology of patient's sepsis. Leukocytosis etiology work-up antibiotics per infectious disease Appreciate nephrology input transfuse with dialysis We will follow with recommendations thank you allowing participation's care plan HD access temp HD discussed with medical teams line okay HD as per renal persistent leukocytosis flow cyto noted improving trending down right fem line removed wbc fluctuating h/h stable lft's elevated There is a right pleural effusion Gallbladder demonstrates tiny wall adherent nonmobile echogenic foci, some possible mural calcifications, and comet tail artifact in the anterior wall. Patient unable to report sonographic Kent's sign. Common bile duct measures 4 mm in diameter. No intrahepatic biliary ductal dilatation. Liver demonstrates normal echogenicity, no focal abnormality. There is some surface nodularity. Portal vein and hepatic veins are patent. Pancreas is incompletely visualized due to overlying bowel gas, visualized portions are unremarkable. Spleen is unremarkable. Left kidney measures 8.7 cm in length. Right kidney measures 8.9 cm length. Both kidneys demonstrate increased echogenicity. There is no hydronephrosis. No focal abnormality . Abdominal aorta is partially obscured by bowel gas, visualized portions are non-aneurysmal . A gastrostomy is noted Impression: Tiny wall adherent nonmobile gallbladder echogenic foci, may reflect wall adherent calculi, small polyps, and/or pleural calcifications. Anterior wall comet tail artifact suggests foci of adenomyomatosis. Normal caliber common bile duct Possible hepatic surface nodularity, could indicate cirrhotic change Echogenic kidneys, consistent with medical renal disease. No hydronephrosis Right pleural effusion Gastrostomy Note nonvisualization of portions of the pancreas and abdominal aorta (4) Ventilator dependent (5) Right lower lobe pneumonia (6) Hypokalemia (7) Hyperkalemia (8) Anasarca (9) Decubitus skin ulcer Assessment & Plan: pt presented on admission with generalized edemae.Skin assessed under tracheostomy and no areas of concerns noted. GT Insertion is marginally erythematous with small amt slough at stoma. Unstageable Pressure Injury R elbow. Base of wound is 100% yellow slough, Borders are erythematous. Wound oozing small amt haemopurulent exudate.Darker skin tone without elevation in skin temp or erythema periwound. Pt's penis and scrotum are grossly edematous and enlarged and weeping serous exudate from numerous sites both from penis and scrotum. Two small open wounds noted at base of at base of shaft of penis ,and contreras aspect of scrotum. Both wounds oozing large amt sanguineous and serosanguineous exudate. Multiple open wounds with Biofilm at base of each wounds noted to contreras/lateral,inferior and posterior aspects of scrotum. These wounds noted to be oozing moderate amts of serosanguineous exudate. Hypertrophic scar with scattered areas of hyperpigmentation noted to Sacrum. DTPI noted to L Buttocks (L)7cm x (W)9cm. Base of wound is purple and indurated.Darker skin tone without erythema, induration or fluctuance R and L ischial tuberosities. Both heels are boggy with non-blanchable erythema. Tx.Plan: Cleanse wound R elbow with Saline. Apply TheraHoney, Apply Moisture Barrier Paste periwound. Cover with Optifoam drsg.Change Daily and prn. Wash GT site with soap and water.Pat dry. Apply Zinc Oxide Paste to GT site Daily. Leave Open to Air. Apply Zinc Oxide Paste to entire Scrotum, Place ABD pads to R and L lateral, and posterior aspects of scrotum TWICE daily. Apply Cavilon Skin Barrier to malleoli and both Heels. Cover each site with Optifoam drsgs. Change every 7 days and prn. Reposition at least every 2hours or as tolerated. Off-load heels with Pillows. APM/BECCA Mattress overlay. (10) Malnutrition Assessment & Plan: DAILY ESTIMATED NEEDS: Needs based on Renal, critical care, wound/ 61kg 22-30 kcals/kg 2053-2039 total kcals 1.25-2 g protein/kg 76-122 g total protein Fluid per MD, now on HD NUTRITION DIAGNOSIS: * Swallowing difficulty R/T respiratory failure, dysphagia as evidenced by trach/vent dep, PEG dep * Increased kcal/prot needs R/T wound healing as evidenced by admitted w/ multiple pressure injuries including full thickness wounds at junction of Shaft of penis, dorsal scrotum, R elbow, and DTPI @ L buttocks. CURRENT TF:Osmolite 1.2 @ 60ml/hr x 20 hrs + Garo BID ENTERAL NUTRITION RECOMMENDATIONS: Vital AF 1.2 @ 60ml/hr x 20 hrs to provide 1200ml, 1440kcal, 90g prot, 973ml free water * Rec 20 hr run time for GI rest. -> W/ improved GI status, rec Vital AF 1.2, an elemental and carb controlled TF -> monitor lytes and renal fxn closely, monitor need for renal TF -> TF @ goal will provide 1642mg K and 2025mg Phos -> HOB over 30 degrees/ water flush per MD -------- Trial of Osmolite 1.2 continue for now- Goal of 60ml/hr for 20 hrs (4 hrs bowel rest) to provide 1200ml, 1440 kcal, 67g pro, 984ml free H2O, -> Rec to add prosource 1 pack daily (11g pro) to better meet est pro needs. -> Monitor BG, K closely. Pt would require increased insulin coverage as TF at goal would provide 56g more carbs per day. ADDITIONAL RECOMMENDATIONS: * Per SNF: HT=63" FK=262 lbs (vs EMR wt of 166lbs) -> obtain re-calibrated bedscale wt, rec daily wt monitoring * Wound healing: con't Nephrovite + Garo BID/ Vit C dosing per Nephro * Monitor renal fxn and lytes closely w/ non-renal TF ->K low, phos wnl;updated mag level; rec increased insulin w/ BG labs * Daily wts w/ drop to 118-20 lbs, rec to recalibrate for accurate CBW * Consider DC Miralax if medically appropriate: +rectal tube (11) Uremia (12) CKD (chronic kidney disease) stage 5, GFR less than 15 ml/min (13) Colon distention Assessment & Plan: discussed with GI likely functional as having lots of loose bm rectal tube kub f/u s/p colonoscopy - findings reviewed with GI improved cont diet as tolerated Marked distention of the sigmoid colon. 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 No evidence of bowel wall thickening or pneumatosis 12 mm focus of contrast enhancement in the right pectineus muscle. While nonspecific in appearance, appearance raises concern for a possible pseudoaneurysm. Ill- defined thickening of the pectus medius muscle could indicate some intramuscular hemorrhage. The above findings were phoned to Dr. Urias at the time of interpretation Large bilateral pleural effusions Hazy pulmonary parenchymal opacities as well as dense consolidative opacities most likely represent pulmonary edema, but could represent pneumonia Evidence of anasarca elsewhere, with generalized edema of the subcutaneous fat Bladder wall thickening, raises concern for cystitis. Avalos catheter in place Colonic diverticulosis. No evidence of diverticulitis. Tracheostomy Pacemaker Gastrostomy Jonathan Urias Oct 08, 2019 12:36
--- NOTE | 2019-10-08 15:19 | NUR ---
ASE MANAGEMENT: REVIEW 10/07/2019 SI:SEPSIS. 98.9 95 17 142/70 98% ON MECH VENT FIO2 24 WBC 16.8 PLT 505 NA+ 132 BUN/CREAT 59/3.7 BG 229 AST/ALT 151/130 ALKP 312 ALB 1.9 IS:LONITEN GT QD LOPRESSOR GT Q12H INSULIN ASPART SUBQ Q6H SDU PLAN: NM HIDA SCAN FOR WEDNESDAY
--- NOTE | 2019-10-08 15:23 | NUR ---
*-* INSURANCE *-* UPDATED CLINICALS AND REVIEWS HAVE BEEN FAXED TO: [facility] / [facility] REF# [id number] RIC:HARPRE P:[phone] F:[phone]
[2019-10-08 16:00] VITALS: BP 130/59
[2019-10-08] MEDS ORDERED: NS 275ml ONE (17:22)
--- NOTE | 2019-10-08 19:58 | NUR ---
NURSE HAND-OFF REPORT: Important Events on Shift: Pt. remain stable Patient Status: Diet: Pending Orders: Pending Results/Labs: Pending MD notification: Latest Vital Signs: Temperature 98.6 , Pulse 77 , B/P 130 /59 , Respiratory Rate 12 , O2 SAT 97 , Mechanical Ventilator, O2 Flow Rate 15.0 . Vital Sign Comment: EKG Rhythm: Sinus Rhythm Rhythm change?: N MD Notified?: N - MD Response: Latest Delacruz Fall Score: 70 Fall Risk: High Risk Safety Measures: Call light Within Reach, Bed Alarm Zone 1, Side Rails Side Rails x3, Bed position Low and Locked. Fall Precautions: Yellow Socks Report given to .
--- NOTE | 2019-10-08 19:59 | NUR ---
NURSE NOTES: received pt from Micheal Rn., pt is awake and resting on the bed at this time. obtunded. no SOB noted. O2sat is at 100% with trach vent. pt has rectal tube draining well with gravity. left wrist 20g intact , clean, and paten.t right upper chest subclavian permacath intact clean, and patent as well. call light within reach. no active bleeding noted. will continue to monitor pt with plan of care. bed at the lowest position, alarmed, and locked.
[2019-10-08] MEDS: Dyna-Hex 2% Top Sol 2oz TOPIC SCH (20:23)
[2019-10-08 20:25] VITALS: BP 130/52
[2019-10-09] VITALS: BP 124/60
[2019-10-09 04:00] VITALS: BP 134/65
[2019-10-09] MEDS: NovoLOG Insulin Flexpen SUBQ SCH ×4 (05:12→23:39)
--- NOTE | 2019-10-09 07:23 | Hematology/Onc Progress Note ---
Assessment/Plan Assessment/Plan Assessment/recs # Leukocytosis - with multiple infections, VRE UTI, flow is negative --> wbc trend 33-->28-->25->23->22->23->24->17.3-->17-->14->16-->15.6-->14-->14- >13->19->18->17->22->22->19->17-->18->20-->15-->14->16-->14-->17->18-->17 --> on abx, linezolid and zosyn--> zosyn-->gent-->off --> + blood cultures with coag neg staph likely contaminated --> as per id recs --> has ordered a flow cytometry (with pathology) --> does show increased nK cell activity --> JOURDAN 2 and bcr-abl labs ordered (these are send outs)->negative --> plt 585-->613-->649-->669->663-->529-->506 # Anemia due to chronic disease/kidney disease as well, gi bleed + occult + noted --> was on iron in the past, now on hold --> has been started on Epogen sq --> as per renal care --> egd done and shows gastritis --> on ppi --> egd showed gastritis, colo recently done --> hgb 9-->8.7-->7.6-->9.2-->8.9-->9.2->9.3-->8.8->9.9-->9.2-->8.1-->8.7-->7.9- ->8.6-->8.9-->8.2->9-->9.3->8.9-->9.5-->10.6->9.2-->10 --> spep ordered # Respiratory failure --> per pulm, s/p trach --> COVID 19 test negative x 2 # Hyperlipidemia --> statin po # Dysphagia s/p gtube with nepro --> per gi # ESRD with r fem julito --> hd as per renal # Dvt ppx scds Appreciate consultation and dw Rn Subjective Constitutional: Denies: no symptoms, chills, fever, malaise, weakness, other HEENT: Denies: no symptoms, eye pain, blurred vision, tearing, double vision, ear pain, ear discharge, nose pain, nose congestion, throat pain, throat swelling, mouth pain, mouth swelling, other Cardiovascular: Denies: no symptoms, chest pain, edema, irregular heart rate, lightheadedness, palpitations, syncope, other Respiratory: Denies: no symptoms, cough, shortness of breath, SOB with excertion, SOB at rest, sputum, wheezing, other Gastrointestinal/Abdominal: Denies: no symptoms, abdomen distended, abdominal pain, black stools, tarry stools, blood in stool, constipated, diarrhea, difficulty swallowing, nausea, poor appetite, poor fluid intake, rectal bleeding , vomiting, other Genitourinary: Denies: no symptoms, burning, discharge, frequency, flank pain, hematuria, incontinence, pain, urgency, other Neurologic/Psychiatric: Denies: no symptoms, anxiety, depressed, emotional problems, headache, numbness, paresthesia, pre-existing deficit, seizure, tingling, tremors, weakness, other Hematologic/Lymphatic: Denies: no symptoms, anemia, easy bleeding, easy bruising, adenopathy, other Allergies: Coded Allergies: No Known Allergies (Unverified , 06/10/19) Subjective 08/15 meds noted, no bleeding, hgb 8.8, wbc 28, path flow pending 08/16 flow pending dw pathologist, results pending, wbc 25, hgb 9 08/17 labs reviewed, meds reviewed, meds noted, no night sweats 08/19 remains obtunded, on vent/trach, no bleeding wbc 21.7 08/20 labs have been reviewed, no bleeding, wbc still elev, path reviewed 08/21 labs are noted, no bleeding, on vent, wbc better 08/22 labs noted, no bleeding, meds reviewed, wbc 24 hgb 7.6 08/23 vent, off abx, c diff negative, h/h stable 08/24 labs reviewed, on abx, wbc 17, hgb 8.9, no hemolysis 08/26 reviewed flow and is negative for leukemia, matt rn 08/27 meds reviewed, no night sweats, matt rn, no major bleeding 08/28 meds reivewed, labs noted 08/29 wbc is stable, approx 15, hgb 8.8, no hemolysis 08/30 labs are noted, is for colo today, hgb 9.9 08/31 right fem julito in place, unchanged, hgb 9.2, gi aware 09/01 labs noted, hgb 8.8, plt >600, no bleeding 09/02 labs noted, no bleeding, with elev wbc still, no new changes 09/03 meds are noted, no bleeding, labs reviewed hgb 8.6 09/04 no major events, hd as per renal, abx, no bleeding hgb low 09/05 labs are noted, no bleeding, meds have been reviewed 09/06 no new labs no hemolysis, cbc is noted, no bleeding 09/07 meds reviewed, no bleeding, matt rn, permacath functioning well 09/09 meds reviewed, wbc still elevated, as per id recs, cbc noted 09/10 is obtunded, with gutbe in place, labs reviewed 09/11 obtunded, as per id, observe now off abx, labs noted, wbc 19 09/12 cbc is pending, remains on epogen, also off abx 09/13 labs reviewed, no bleeding, elev wbc, no night sweats 09/14 meds noted, no bleeding, wbc 19, hgb 9.5, no night sweats 09/21 obtunded, remains on vent, labs noted, no bleeding, hgb 8.9 09/22 obtunded, labs noted, no bleeding, on vent, unchanged 09/23 unchanges, wbc remains elevated 20k, on abx, on vent 09/24 labs have been reviewed, no bleeding, wbc 15, may need abx 09/25 formula gtube changed, labs noted, remains obtunded, hgb 9.3 09/26 labs have been reviewed, no bleeding, matt rn, no night sweats 09/27 meds reviewed, no bleeding, wbc 14, on abx, remains obtunded 09/28 remains obtunded, no bleeding, wbc better, hgb 8.9, no hemolysis, plt 506 09/30 on colisitn, wbc elevated, cefepime added per id, hgb stable 10/01 labs reviewed, no bleeding, matt rn, no major events noted, wbc 14, hgb 10.6 10/02 labs have been noted, hgb 9.2, wbc 17, on abx, matt rn 10/03 continue on tube feeds, no bleeding, on vent, wbc remains elevated 10/04 remains ibtunded, is on a mechanical ventilator with tube feeds noted 10/05 labs are noted, hgb 8.6, wbc remains elevated, have ordered for spep 10/07 obtunded on vent, with gtube feeds, labs reviewed, matt rn 10/08 labs are noted, on vent/trach, hgb 10.2, remains obtunded Objective Objective Current Medications Medications (Trade) Dose Ordered Sig/Leonel Route PRN Reason Start Time Stop Time Status Last Admin Dose Admin Acetaminophen (Tylenol) 650 mg Q4H PRN GT Mild Pain (Pain Scale 1-3) 09/21/19 12:45 10/21/19 12:44 10/07/19 23:28 Chlorhexidine Gluconate (Felipa-Hex 2%) 1 applic DAILY@2000 TOPIC 09/12/19 20:00 12/11/19 19:59 10/08/19 20:23 Clonidine HCl (Catapres Tab) 0.1 mg Q4H PRN GT For High Blood Pressure 09/09/19 12:30 12/08/19 05:29 09/15/19 04:10 Dextrose (Dextrose 50%) 25 ml Q30M PRN IV Hypoglycemia 08/09/19 07:30 11/07/19 07:29 Dextrose (Dextrose 50%) 50 ml Q30M PRN IV Hypoglycemia 08/09/19 07:30 11/07/19 07:29 Diphenoxylate HCl/ Atropine (Lomotil) 2.5 mg QID PRN ORAL Diarrhea 09/24/19 08:45 10/24/19 08:44 Epoetin Andreas (Epoetin Andreas(ESRD on dialysis)) 10,000 unit WED-WED-WED SUBQ 10/09/19 21:00 01/07/20 20:59 Famotidine (Pepcid) 20 mg DAILY GT 08/30/19 09:00 11/28/19 08:59 10/08/19 08:39 Insulin Aspart (NovoLOG) Q6HR SUBQ 09/25/19 18:00 11/07/19 11:29 10/09/19 05:12 Lactobacillus Acidophilus (Culturelle) 1 tab EVERY 12 HOURS GT 10/03/19 21:00 12/13/19 17:59 10/08/19 20:23 Metoprolol Tartrate (Lopressor) 200 mg Q12HR GT 08/09/19 09:00 11/07/19 08:59 10/08/19 20:24 Minoxidil (Loniten) 5 mg DAILY GT 08/09/19 09:00 11/07/19 08:59 10/08/19 08:40 Zinc Oxide (Zinc Oxide) 1 applic EVERY 12 HOURS TOPIC 10/03/19 09:00 11/08/19 17:59 10/08/19 20:23 Last 24 Hour Vital Signs Date Time Temp Pulse Resp B/P (MAP) Pulse Ox O2 Delivery O2 Flow Rate FiO2 10/09/19 06:55 94 16 24 10/09/19 05:09 72 13 24 10/09/19 04:02 87 10/09/19 04:00 Mechanical Ventilator 10/09/19 04:00 24 10/09/19 04:00 97.7 77 12 134/65 (88) 100 10/09/19 02:38 75 14 24 10/09/19 00:41 78 12 24 10/09/19 00:00 98.0 79 14 124/60 (81) 100 10/09/19 00:00 Mechanical Ventilator 10/08/19 23:57 84 10/08/19 22:33 74 13 24 10/08/19 20:46 72 15 24 10/08/19 20:25 97.9 81 14 130/52 (78) 100 10/08/19 20:24 80 130/52 10/08/19 20:00 Mechanical Ventilator 10/08/19 20:00 24 10/08/19 19:31 80 10/08/19 19:03 77 12 24 10/08/19 16:55 78 16 24 10/08/19 16:00 98.6 77 13 130/59 (82) 97 10/08/19 16:00 Mechanical Ventilator 10/08/19 16:00 24 10/08/19 15:20 78 10/08/19 15:05 90 20 24 10/08/19 13:00 94 20 24 10/08/19 12:00 24 10/08/19 12:00 Mechanical Ventilator 10/08/19 12:00 98.9 95 17 142/70 (94) 98 10/08/19 11:42 94 10/08/19 11:05 94 20 24 10/08/19 09:05 89 16 24 10/08/19 08:40 134/63 10/08/19 08:39 89 134/63 10/08/19 08:10 90 18 24 10/08/19 08:00 24 10/08/19 08:00 98.6 89 15 134/63 (86) 99 10/08/19 08:00 Mechanical Ventilator 10/08/19 07:50 89 10/08/19 05:20 87 16 24 10/08/19 04:00 24 10/08/19 04:00 Mechanical Ventilator 10/08/19 03:34 98.2 89 18 138/72 (94) 100 10/08/19 03:25 88 19 24 10/08/19 03:24 87 10/08/19 01:25 88 17 24 10/08/19 00:00 24 10/08/19 00:00 Mechanical Ventilator 10/07/19 23:28 99.0 10/07/19 23:27 99.6 84 18 141/77 (98) 100 10/07/19 23:25 84 10/07/19 23:00 83 19 24 10/07/19 21:30 80 19 24 10/07/19 20:24 72 127/61 10/07/19 20:00 97.9 70 18 127/61 (83) 100 10/07/19 20:00 Mechanical Ventilator 10/07/19 20:00 24 10/07/19 19:24 87 10/07/19 19:00 78 19 24 10/07/19 16:44 74 13 24 10/07/19 16:00 Mechanical Ventilator 10/07/19 16:00 24 10/07/19 16:00 97.5 77 17 134/54 (80) 99 10/07/19 15:41 76 10/07/19 15:09 75 14 24 10/07/19 12:49 88 10/07/19 12:40 74 12 24 10/07/19 12:00 24 8/29/20 12:00 98.4 80 13 138/68 (91) 100 10/07/19 12:00 Mechanical Ventilator 10/07/19 11:22 78 13 24 10/07/19 09:07 72 12 24 10/07/19 08:30 78 143/64 10/07/19 08:30 143/64 10/07/19 08:00 24 10/07/19 08:00 98.4 78 13 143/64 (90) 100 10/07/19 08:00 Mechanical Ventilator 10/07/19 07:45 78 10/07/19 07:28 76 12 24 Intake and Output 10/08/19 10/09/19 19:00 07:00 Intake Total 740 ml 600 ml Balance 740 ml 600 ml Free Water 200 ml 60 ml Tube Feeding 540 ml 540 ml Labs Test 10/06/19 12:26 10/06/19 17:22 10/06/19 22:35 10/07/19 02:45 White Blood Count 17.9 K/UL (4.8-10.8) Red Blood Count 3.67 M/UL (4.70-6.10) Hemoglobin 8.9 G/DL (14.2-18.0) Hematocrit 29.5 % (42.0-52.0) Mean Corpuscular Volume 80 FL (80-99) Mean Corpuscular Hemoglobin 24.3 PG (27.0-31.0) Mean Corpuscular Hemoglobin Concent 30.2 G/DL (32.0-36.0) Red Cell Distribution Width 16.2 % (11.6-14.8) Platelet Count 453 K/UL (150-450) Mean Platelet Volume 5.9 FL (6.5-10.1) Neutrophils (%) (Auto) 68.0 % (45.0-75.0) Lymphocytes (%) (Auto) 14.4 % (20.0-45.0) Monocytes (%) (Auto) 9.5 % (1.0-10.0) Eosinophils (%) (Auto) 7.0 % (0.0-3.0) Basophils (%) (Auto) 1.0 % (0.0-2.0) Test 10/07/19 05:08 10/07/19 13:55 10/07/19 22:56 10/08/19 04:07 White Blood Count 20.0 K/UL (4.8-10.8) 16.8 K/UL (4.8-10.8) Red Blood Count 4.06 M/UL (4.70-6.10) 4.14 M/UL (4.70-6.10) Hemoglobin 9.9 G/DL (14.2-18.0) 10.2 G/DL (14.2-18.0) Hematocrit 32.6 % (42.0-52.0) 33.5 % (42.0-52.0) Mean Corpuscular Volume 80 FL (80-99) 81 FL (80-99) Mean Corpuscular Hemoglobin 24.3 PG (27.0-31.0) 24.6 PG (27.0-31.0) Mean Corpuscular Hemoglobin Concent 30.3 G/DL (32.0-36.0) 30.4 G/DL (32.0-36.0) Red Cell Distribution Width 16.3 % (11.6-14.8) 16.8 % (11.6-14.8) Platelet Count 478 K/UL (150-450) 505 K/UL (150-450) Mean Platelet Volume 5.8 FL (6.5-10.1) 5.9 FL (6.5-10.1) Neutrophils (%) (Auto) % (45.0-75.0) 71.5 % (45.0-75.0) Lymphocytes (%) (Auto) % (20.0-45.0) 14.7 % (20.0-45.0) Monocytes (%) (Auto) % (1.0-10.0) 6.8 % (1.0-10.0) Eosinophils (%) (Auto) % (0.0-3.0) 6.2 % (0.0-3.0) Basophils (%) (Auto) % (0.0-2.0) 0.8 % (0.0-2.0) Differential Total Cells Counted 100 Neutrophils % (Manual) 64 % (45-75) Lymphocytes % (Manual) 25 % (20-45) Monocytes % (Manual) 6 % (1-10) Eosinophils % (Manual) 4 % (0-3) Basophils % (Manual) 0 % (0-2) Band Neutrophils 1 % (0-8) Platelet Estimate Increased Platelet Morphology Normal Hypochromasia 1+ Anisocytosis 1+ Microcytosis 1+ Macrocytosis Occasional Sodium Level 134 MMOL/L (136-145) 132 MMOL/L (136-145) Potassium Level 4.6 MMOL/L (3.5-5.1) 5.0 MMOL/L (3.5-5.1) Chloride Level 96 MMOL/L (98-107) 95 MMOL/L (98-107) Carbon Dioxide Level 27 MMOL/L (21-32) 27 MMOL/L (21-32) Anion Gap 11 mmol/L (5-15) 10 mmol/L (5-15) Blood Urea Nitrogen 36 mg/dL (7-18) 59 mg/dL (7-18) Creatinine 2.7 MG/DL (0.55-1.30) 3.7 MG/DL (0.55-1.30) Estimat Glomerular Filtration Rate 23.0 mL/min (>60) 16.0 mL/min (>60) Glucose Level 126 MG/DL (74-106) 229 MG/DL (74-106) Calcium Level 8.8 MG/DL (8.5-10.1) 9.0 MG/DL (8.5-10.1) Total Bilirubin 0.5 MG/DL (0.2-1.0) Aspartate Amino Transf (AST/SGOT) 151 U/L (15-37) Alanine Aminotransferase (ALT/SGPT) 130 U/L (12-78) Alkaline Phosphatase 312 U/L (46-116) Total Protein 9.6 G/DL (6.4-8.2) Albumin 1.9 G/DL (3.4-5.0) Globulin 7.7 g/dL Albumin/Globulin Ratio 0.2 (1.0-2.7) Test 10/08/19 05:14 10/08/19 23:29 10/09/19 05:08 POC Whole Blood Glucose 233 MG/DL (74-106) Height (Feet): 5 Height (Inches): 10.00 Weight (Pounds): 120 Objective Physical Exam General Appearance: nad, Chronically Ill Head: normocephalic Eyes: right eye PERRL - Will not open left eye ENT: moist mucus membranes Neck: other - submandibular mass R, fairly rigid with resistance to rotation to L, tracheotomy Respiratory: decreased breath sounds, crackles, other - pacemaker, vent+ Cardiovascular: regular rate, rhythm, edema - anasarca Gastrointestinal: non tender, distended, other - G tube Genitourinary: other Musculoskeletal: other - Contractures all extremities Neurologic: sensory intact, motor weakness, responsive Psychiatric: other Skin: Decubitus/Ulcer - Stage III right elbow, stage III left elbow, stage II sacrum, stage III scrotum, warm/dry Fitz Campos MD Oct 09, 2019 07:23
--- NOTE | 2019-10-09 07:30 | NUR ---
NURSE HAND-OFF REPORT: Important Events on Shift: pt stable Patient Status: stable Diet: osmo 1.2 Pending Orders: none Pending Results/Labs:none Pending MD notification:none Latest Vital Signs: Temperature 97.7 , Pulse 94 , B/P 134 /65 , Respiratory Rate 16 , O2 SAT 100 , Mechanical Ventilator, O2 Flow Rate 15.0 . Vital Sign Comment: stable EKG Rhythm: V-Paced Rhythm change?: N MD Notified?: N - MD Response: Latest Delacruz Fall Score: 70 Fall Risk: High Risk Safety Measures: Call light Within Reach, Bed Alarm Zone 1, Side Rails Side Rails x3, Bed position Low and Locked. Fall Precautions: Yellow Socks Report given to Elizabeth DAVEY.
--- NOTE | 2019-10-09 07:30 | NUR ---
NURSE NOTES: Nurse report given by TAMICA Muhammad. Patient's sleeping in bed, awaken by shaking, obtunded, AO x 0, no s/s of distress or SOB, no s/s of pain. Bed low and locked, call light within reach, side rails x 2. Trach/Vent with Portex 8, AC 12, Tv 550, FiO2 24%, Peeps 5. GT feeding on hold for limited hours. IV on LW 20g, saline locked, flushed, patent. RUC tunnel catheter, flushed. Rectal tube noted, draining well. NPO for now for NM hepatobiliary. Patient voided, so cleaned patient and repositioned patient. Oral care and trach suction offer. Will continue to monitor closely.
[2019-10-09 08:00] VITALS: BP 123/53
--- NOTE | 2019-10-09 08:15 | General Progress Note ---
Assessment/Plan Assessment/Plan: IMPRESSION: 1. anemia. 2. fevers improved 3. Leukocytosis. 4. hypotension 5. Acute on chronic renal failure. 6. Hyponatremia. 7. Severe protein-calorie malnutrition. 8. Significantly elevated C-reactive protein concerning for infectious etiology. 9. Tracheostomy, G-tube. 10. Ventilator dependence. 11. anasarca 12. Hematuria 13. V pacing 14. hyponatremia 15. transaminitis PLAN chronic care; unable to place care noted may need CT on vent/ no wean monitor labs and optimize ID follow up dialysis ongoing prognosis poor for recovery impression, plan, and exam edited and reviewed in detail care discussed with RN Subjective Allergies: Coded Allergies: No Known Allergies (Unverified , 06/10/19) Subjective remains ill on vent/ no change on HD vitals noted Objective Last 24 Hour Vital Signs Date Time Temp Pulse Resp B/P (MAP) Pulse Ox O2 Delivery O2 Flow Rate FiO2 10/09/19 08:00 98.1 93 16 123/53 (76) 100 10/09/19 06:55 94 16 24 10/09/19 05:09 72 13 24 10/09/19 04:02 87 10/09/19 04:00 Mechanical Ventilator 10/09/19 04:00 24 10/09/19 04:00 97.7 77 12 134/65 (88) 100 10/09/19 02:38 75 14 24 10/09/19 00:41 78 12 24 10/09/19 00:00 98.0 79 14 124/60 (81) 100 10/09/19 00:00 Mechanical Ventilator 10/08/19 23:57 84 10/08/19 22:33 74 13 24 10/08/19 20:46 72 15 24 10/08/19 20:25 97.9 81 14 130/52 (78) 100 10/08/19 20:24 80 130/52 10/08/19 20:00 Mechanical Ventilator 10/08/19 20:00 24 10/08/19 19:31 80 10/08/19 19:03 77 12 24 10/08/19 16:55 78 16 24 10/08/19 16:00 98.6 77 13 130/59 (82) 97 10/08/19 16:00 Mechanical Ventilator 10/08/19 16:00 24 10/08/19 15:20 78 10/08/19 15:05 90 20 24 10/08/19 13:00 94 20 24 10/08/19 12:00 24 10/08/19 12:00 Mechanical Ventilator 10/08/19 12:00 98.9 95 17 142/70 (94) 98 10/08/19 11:42 94 10/08/19 11:05 94 20 24 10/08/19 09:05 89 16 24 10/08/19 08:40 134/63 10/08/19 08:39 89 134/63 Intake and Output 10/08/19 10/09/19 19:00 07:00 Intake Total 740 ml 840 ml Output Total 100 ml Balance 740 ml 740 ml Free Water 200 ml 120 ml Tube Feeding 540 ml 720 ml Stool Total 100 ml Laboratory Tests 10/08/19 23:29: POC Whole Blood Glucose [Pending] 10/09/19 05:08: POC Whole Blood Glucose 233H Height (Feet): 5 Height (Inches): 10.00 Weight (Pounds): 120 Objective GENERAL: Ill-appearing male, chronically debilitated. HEENT: Tracheostomy in midline. Questionable fullness in the submandibular region. LUNGS: Coarse breath sounds. reduced breath sounds CARDIAC: S1, S2. Regular rate and rhythm. ABDOMEN: Soft. G-tube. EXTREMITIES: With noted edema. NEUROLOGICAL: Poorly responsive, weak diffusely. Kain Ramirez MD Oct 09, 2019 08:15
[2019-10-09] MEDS: Metoprolol Tartrate 100mg tab GT SCH ×2 (08:47→20:15)
[2019-10-09] MEDS: Minoxidil 2.5mg tab GT SCH (08:47)
[2019-10-09] MEDS: Lactobacillus-GG tablet GT SCH ×2 (08:47→20:14)
[2019-10-09] MEDS: Zinc Oxide Oint 2oz TOPIC SCH ×2 (08:48→20:15)
--- NOTE | 2019-10-09 11:08 | Infectious Diseases Prog Note ---
"Assessment/Plan Assessment/Plan antibiotics : none A 1. acenitobacter | proteus pneumonia s/p rx 2. respiratory failure 3. leucocytosis 4. COVID 19 test negative x 2 5. renal failure on HD P 1. continue off antibiotics 2. will follow up cultures Subjective ROS Limited/Unobtainable: Yes Allergies: Coded Allergies: No Known Allergies (Unverified , 06/10/19) Objective Last 24 Hour Vital Signs Date Time Temp Pulse Resp B/P (MAP) Pulse Ox O2 Delivery O2 Flow Rate FiO2 10/09/19 11:03 90 20 24 10/09/19 09:27 93 19 24 10/09/19 08:47 91 118/46 10/09/19 08:47 118/46 10/09/19 08:00 Mechanical Ventilator 10/09/19 08:00 98.1 93 16 123/53 (76) 100 10/09/19 08:00 92 10/09/19 08:00 24 10/09/19 06:55 94 16 24 10/09/19 05:09 72 13 24 10/09/19 04:02 87 10/09/19 04:00 Mechanical Ventilator 10/09/19 04:00 24 10/09/19 04:00 97.7 77 12 134/65 (88) 100 10/09/19 02:38 75 14 24 10/09/19 00:41 78 12 24 10/09/19 00:00 98.0 79 14 124/60 (81) 100 10/09/19 00:00 Mechanical Ventilator 10/08/19 23:57 84 10/08/19 22:33 74 13 24 10/08/19 20:46 72 15 24 10/08/19 20:25 97.9 81 14 130/52 (78) 100 10/08/19 20:24 80 130/52 10/08/19 20:00 Mechanical Ventilator 10/08/19 20:00 24 10/08/19 19:31 80 10/08/19 19:03 77 12 24 10/08/19 16:55 78 16 24 10/08/19 16:00 98.6 77 13 130/59 (82) 97 10/08/19 16:00 Mechanical Ventilator 10/08/19 16:00 24 10/08/19 15:20 78 10/08/19 15:05 90 20 24 10/08/19 13:00 94 20 24 10/08/19 12:00 24 10/08/19 12:00 Mechanical Ventilator 10/08/19 12:00 98.9 95 17 142/70 (94) 98 10/08/19 11:42 94 Height (Feet): 5 Height (Inches): 10.00 Weight (Pounds): 120 HEENT: status post trach Respiratory/Chest: lungs clear Cardiovascular: normal rate, regular rhythm, no gallop/murmur Abdomen: soft, non tender, other - GT Extremities: other Laboratory Tests Test 10/08/19 23:29 10/09/19 05:08 POC Whole Blood Glucose Pending 233 MG/DL (74-106) H Current Medications Medications (Trade) Dose Ordered Sig/Leonel Route PRN Reason Start Time Stop Time Status Last Admin Dose Admin Acetaminophen (Tylenol) 650 mg Q4H PRN GT Mild Pain (Pain Scale 1-3) 09/21/19 12:45 10/21/19 12:44 10/07/19 23:28 Chlorhexidine Gluconate (Felipa-Hex 2%) 1 applic DAILY@1999 TOPIC 09/12/19 20:00 12/11/19 19:59 10/08/19 20:23 Clonidine HCl (Catapres Tab) 0.1 mg Q4H PRN GT For High Blood Pressure 09/09/19 12:30 12/08/19 05:29 09/15/19 04:10 Dextrose (Dextrose 50%) 25 ml Q30M PRN IV Hypoglycemia 08/09/19 07:30 11/07/19 07:29 Dextrose (Dextrose 50%) 50 ml Q30M PRN IV Hypoglycemia 08/09/19 07:30 11/07/19 07:29 Diphenoxylate HCl/ Atropine (Lomotil) 2.5 mg QID PRN ORAL Diarrhea 09/24/19 08:45 10/24/19 08:44 Epoetin Andreas (Epoetin Andreas(ESRD on dialysis)) 10,000 unit WED-WED-WED SUBQ 10/09/19 21:00 01/07/20 20:59 Famotidine (Pepcid) 20 mg DAILY GT 08/30/19 09:00 11/28/19 08:59 10/09/19 08:47 Insulin Aspart (NovoLOG) Q6HR SUBQ 09/25/19 18:00 11/07/19 11:29 10/09/19 05:12 Lactobacillus Acidophilus (Culturelle) 1 tab EVERY 12 HOURS GT 10/03/19 21:00 12/13/19 17:59 10/09/19 08:47 Metoprolol Tartrate (Lopressor) 200 mg Q12HR GT 08/09/19 09:00 11/07/19 08:59 10/08/19 20:24 Minoxidil (Loniten) 5 mg DAILY GT 08/09/19 09:00 11/07/19 08:59 10/09/19 08:47 Zinc Oxide (Zinc Oxide) 1 applic EVERY 12 HOURS TOPIC 10/03/19 09:00 11/08/19 17:59 10/09/19 08:48 Farnaz Lyle MD Oct 09, 2019 11:08"
--- NOTE | 2019-10-09 11:42 | NUR ---
RD ASSESSMENT & RECOMMENDATIONS SEE CARE ACTIVITY FOR COMPLETE ASSESSMENT DAILY ESTIMATED NEEDS: Needs based on Renal, critical care, wound/ 61kg 22-30 kcals/kg 1769-1384 total kcals 1.25-2 g protein/kg 76-122 g total protein Fluid per MD, now on HD NUTRITION DIAGNOSIS: * Swallowing difficulty R/T respiratory failure, dysphagia as evidenced by trach/vent dep, PEG dep * Increased kcal/prot needs R/T wound healing as evidenced by admitted w/ multiple pressure injuries including full thickness wounds at junction of Shaft of penis, dorsal scrotum, R elbow, and DTPI @ L buttocks. CURRENT TF:Osmolite 1.2 @ 60ml/hr x 20 hrs + Garo BID ENTERAL NUTRITION RECOMMENDATIONS: Vital AF 1.2 @ 60ml/hr x 20 hrs to provide 1200ml, 1440kcal, 90g prot, 973ml free water * Rec 20 hr run time for GI rest. -> W/ improved GI issues, rec previous TF formula of Vital AF 1.2, an elemental and carb controlled TF -> monitor lytes and renal fxn closely, monitor need for renal TF -> TF @ goal will provide 1642mg K and 2025mg Phos -> HOB over 30 degrees/ water flush per MD -------- IF TRIAL OF OSMOLITE 1.2 CONTINEUS -> Goal of 60ml/hr for 20 hrs (4 hrs bowel rest) to provide 1200ml, 1440 kcal, 67g pro, 984ml free H2O, -> Rec to add prosource 1 pack daily (11g pro) to better meet est pro needs. -> Monitor BG, K closely. Pt would require increased insulin coverage as TF at goal would provide 56g more carbs per day. ADDITIONAL RECOMMENDATIONS: * Per SNF: HT=63" MU=303 lbs (vs EMR wt of 166lbs) -> obtain re-calibrated bedscale wt, rec daily wt monitoring * Wound healing: con't Nephrovite + Garo BID/ Vit C dosing per Nephro * Monitor renal fxn and lytes closely w/ non-renal TF (K=5.0) -> Rec increased insulin w/ BG labs (on peter q6) * Monitor BGs w/ noncarb controlled TF, need for long acting insulin * Monitor stool output, need to change TF again
[2019-10-09 12:00] VITALS: BP 122/56
--- NOTE | 2019-10-09 12:00 | NUR ---
NURSE NOTES: Endorsed by charge nurse May that she has spoke with [facility] for dialysis schedule tomorrow 10/10/19 for patient.
--- NOTE | 2019-10-09 12:47 | Surgery Progress Note ---
Surgery Progress Note Subjective Procedure Performed Right femoral temporary hemodialysis catheter removal Additional Comments leukocytosis improving exam stable on support no n/v/ Objective Last 24 Hour Vital Signs Date Time Temp Pulse Resp B/P (MAP) Pulse Ox O2 Delivery O2 Flow Rate FiO2 10/09/19 12:40 92 16 24 10/09/19 12:00 97.7 89 14 122/56 (78) 99 10/09/19 11:03 90 20 24 10/09/19 09:27 93 19 24 10/09/19 08:47 91 118/46 10/09/19 08:47 118/46 10/09/19 08:00 Mechanical Ventilator 10/09/19 08:00 98.1 93 16 123/53 (76) 100 10/09/19 08:00 92 10/09/19 08:00 24 10/09/19 06:55 94 16 24 10/09/19 05:09 72 13 24 10/09/19 04:02 87 10/09/19 04:00 Mechanical Ventilator 10/09/19 04:00 24 10/09/19 04:00 97.7 77 12 134/65 (88) 100 10/09/19 02:38 75 14 24 10/09/19 00:41 78 12 24 10/09/19 00:00 98.0 79 14 124/60 (81) 100 10/09/19 00:00 Mechanical Ventilator 10/08/19 23:57 84 10/08/19 22:33 74 13 24 10/08/19 20:46 72 15 24 10/08/19 20:25 97.9 81 14 130/52 (78) 100 10/08/19 20:24 80 130/52 10/08/19 20:00 Mechanical Ventilator 10/08/19 20:00 24 10/08/19 19:31 80 10/08/19 19:03 77 12 24 10/08/19 16:55 78 16 24 10/08/19 16:00 98.6 77 13 130/59 (82) 97 10/08/19 16:00 Mechanical Ventilator 10/08/19 16:00 24 10/08/19 15:20 78 10/08/19 15:05 90 20 24 10/08/19 13:00 94 20 24 I&O Intake and Output 10/08/19 10/09/19 19:00 07:00 Intake Total 740 ml 840 ml Output Total 100 ml Balance 740 ml 740 ml Free Water 200 ml 120 ml Tube Feeding 540 ml 720 ml Stool Total 100 ml Dressing: other Wound: other Cardiovascular: RSR Respiratory: decreased breath sounds Abdomen: soft, non-tender, present bowel sounds Extremities: no tenderness, no cyanosis Laboratory Tests Test 10/08/19 23:29 10/09/19 05:08 10/09/19 11:46 POC Whole Blood Glucose Pending 233 MG/DL (74-106) H 120 MG/DL (74-106) H Plan Problems: (1) Anemia (2) Hyponatremia (3) Leukocytosis Assessment & Plan: Tracheostomy, left chest pacemaker are again demonstrated. There is bilateral interstitial and airspace disease and bilateral pleural fluid again demonstrated. This appears more severe than on the prior study. Bilateral interstitial and airspace infiltrates versus edema. Bilateral pleural effusions Leukocytosis, anemia, tachycardia, abnormal labs. Wound evaluated and likely etiology of patient's sepsis. Leukocytosis etiology work-up antibiotics per infectious disease Appreciate nephrology input transfuse with dialysis We will follow with recommendations thank you allowing participation's care plan HD access temp HD discussed with medical teams line okay HD as per renal persistent leukocytosis flow cyto noted improving trending down right fem line removed wbc fluctuating h/h stable lft's elevated There is a right pleural effusion Gallbladder demonstrates tiny wall adherent nonmobile echogenic foci, some possible mural calcifications, and comet tail artifact in the anterior wall. Patient unable to report sonographic Kent's sign. Common bile duct measures 4 mm in diameter. No intrahepatic biliary ductal dilatation. Liver demonstrates normal echogenicity, no focal abnormality. There is some surface nodularity. Portal vein and hepatic veins are patent. Pancreas is incompletely visualized due to overlying bowel gas, visualized portions are unremarkable. Spleen is unremarkable. Left kidney measures 8.7 cm in length. Right kidney measures 8.9 cm length. Both kidneys demonstrate increased echogenicity. There is no hydronephrosis. No focal abnormality . Abdominal aorta is partially obscured by bowel gas, visualized portions are non-aneurysmal . A gastrostomy is noted Impression: Tiny wall adherent nonmobile gallbladder echogenic foci, may reflect wall adherent calculi, small polyps, and/or pleural calcifications. Anterior wall comet tail artifact suggests foci of adenomyomatosis. Normal caliber common bile duct Possible hepatic surface nodularity, could indicate cirrhotic change Echogenic kidneys, consistent with medical renal disease. No hydronephrosis Right pleural effusion Gastrostomy Note nonvisualization of portions of the pancreas and abdominal aorta (4) Ventilator dependent (5) Right lower lobe pneumonia (6) Hypokalemia (7) Hyperkalemia (8) Anasarca (9) Decubitus skin ulcer Assessment & Plan: pt presented on admission with generalized edemae.Skin assessed under tracheostomy and no areas of concerns noted. GT Insertion is marginally erythematous with small amt slough at stoma. Unstageable Pressure Injury R elbow. Base of wound is 100% yellow slough, Borders are erythematous. Wound oozing small amt haemopurulent exudate.Darker skin tone without elevation in skin temp or erythema periwound. Pt's penis and scrotum are grossly edematous and enlarged and weeping serous exudate from numerous sites both from penis and scrotum. Two small open wounds noted at base of at base of shaft of penis ,and contreras aspect of scrotum. Both wounds oozing large amt sanguineous and serosanguineous exudate. Multiple open wounds with Biofilm at base of each wounds noted to contreras/lateral,inferior and posterior aspects of scrotum. These wounds noted to be oozing moderate amts of serosanguineous exudate. Hypertrophic scar with scattered areas of hyperpigmentation noted to Sacrum. DTPI noted to L Buttocks (L)7cm x (W)9cm. Base of wound is purple and indurated.Darker skin tone without erythema, induration or fluctuance R and L ischial tuberosities. Both heels are boggy with non-blanchable erythema. Tx.Plan: Cleanse wound R elbow with Saline. Apply TheraHoney, Apply Moisture Barrier Paste periwound. Cover with Optifoam drsg.Change Daily and prn. Wash GT site with soap and water.Pat dry. Apply Zinc Oxide Paste to GT site Daily. Leave Open to Air. Apply Zinc Oxide Paste to entire Scrotum, Place ABD pads to R and L lateral, and posterior aspects of scrotum TWICE daily. Apply Cavilon Skin Barrier to malleoli and both Heels. Cover each site with Optifoam drsgs. Change every 7 days and prn. Reposition at least every 2hours or as tolerated. Off-load heels with Pillows. APM/BECCA Mattress overlay. (10) Malnutrition Assessment & Plan: DAILY ESTIMATED NEEDS: Needs based on Renal, critical care, wound/ 61kg 22-30 kcals/kg [id number] total kcals 1.25-2 g protein/kg 76-122 g total protein Fluid per MD, now on HD NUTRITION DIAGNOSIS: * Swallowing difficulty R/T respiratory failure, dysphagia as evidenced by trach/vent dep, PEG dep * Increased kcal/prot needs R/T wound healing as evidenced by admitted w/ multiple pressure injuries including full thickness wounds at junction of Shaft of penis, dorsal scrotum, R elbow, and DTPI @ L buttocks. CURRENT TF:Osmolite 1.2 @ 60ml/hr x 20 hrs + Garo BID ENTERAL NUTRITION RECOMMENDATIONS: Vital AF 1.2 @ 60ml/hr x 20 hrs to provide 1200ml, 1440kcal, 90g prot, 973ml free water * Rec 20 hr run time for GI rest. -> W/ improved GI status, rec Vital AF 1.2, an elemental and carb controlled TF -> monitor lytes and renal fxn closely, monitor need for renal TF -> TF @ goal will provide 1642mg K and 2025mg Phos -> HOB over 30 degrees/ water flush per MD -------- Trial of Osmolite 1.2 continue for now- Goal of 60ml/hr for 20 hrs (4 hrs bowel rest) to provide 1200ml, 1440 kcal, 67g pro, 984ml free H2O, -> Rec to add prosource 1 pack daily (11g pro) to better meet est pro needs. -> Monitor BG, K closely. Pt would require increased insulin coverage as TF at goal would provide 56g more carbs per day. ADDITIONAL RECOMMENDATIONS: * Per SNF: HT=63" YR=575 lbs (vs EMR wt of 166lbs) -> obtain re-calibrated bedscale wt, rec daily wt monitoring * Wound healing: con't Nephrovite + Garo BID/ Vit C dosing per Nephro * Monitor renal fxn and lytes closely w/ non-renal TF ->K low, phos wnl;updated mag level; rec increased insulin w/ BG labs * Daily wts w/ drop to 118-20 lbs, rec to recalibrate for accurate CBW * Consider DC Miralax if medically appropriate: +rectal tube (11) Uremia (12) CKD (chronic kidney disease) stage 5, GFR less than 15 ml/min (13) Colon distention Assessment & Plan: discussed with GI likely functional as having lots of loose bm rectal tube kub f/u s/p colonoscopy - findings reviewed with GI improved cont diet as tolerated Marked distention of the sigmoid colon. 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 No evidence of bowel wall thickening or pneumatosis 12 mm focus of contrast enhancement in the right pectineus muscle. While nonspecific in appearance, appearance raises concern for a possible pseudoaneurysm. Ill- defined thickening of the pectus medius muscle could indicate some intramuscular hemorrhage. The above findings were phoned to Dr. Urias at the time of interpretation Large bilateral pleural effusions Hazy pulmonary parenchymal opacities as well as dense consolidative opacities most likely represent pulmonary edema, but could represent pneumonia Evidence of anasarca elsewhere, with generalized edema of the subcutaneous fat Bladder wall thickening, raises concern for cystitis. Avalos catheter in place Colonic diverticulosis. No evidence of diverticulitis. Tracheostomy Pacemaker Gastrostomy Jonathan Urias Oct 09, 2019 12:47
--- NOTE | 2019-10-09 12:56 | Nephrology Progress Note ---
Assessment/Plan Plan MOF ESRD - HD TTS. Anemia of CKD -TUYET. Subjective Subjective Obtunded. Objective Objective Last 24 Hour Vital Signs Date Time Temp Pulse Resp B/P (MAP) Pulse Ox O2 Delivery O2 Flow Rate FiO2 10/09/19 12:40 92 16 24 10/09/19 12:00 97.7 89 14 122/56 (78) 99 10/09/19 11:03 90 20 24 10/09/19 09:27 93 19 24 10/09/19 08:47 91 118/46 10/09/19 08:47 118/46 10/09/19 08:00 Mechanical Ventilator 10/09/19 08:00 98.1 93 16 123/53 (76) 100 10/09/19 08:00 92 10/09/19 08:00 24 10/09/19 06:55 94 16 24 10/09/19 05:09 72 13 24 10/09/19 04:02 87 10/09/19 04:00 Mechanical Ventilator 10/09/19 04:00 24 10/09/19 04:00 97.7 77 12 134/65 (88) 100 10/09/19 02:38 75 14 24 10/09/19 00:41 78 12 24 10/09/19 00:00 98.0 79 14 124/60 (81) 100 10/09/19 00:00 Mechanical Ventilator 10/08/19 23:57 84 10/08/19 22:33 74 13 24 10/08/19 20:46 72 15 24 10/08/19 20:25 97.9 81 14 130/52 (78) 100 10/08/19 20:24 80 130/52 10/08/19 20:00 Mechanical Ventilator 10/08/19 20:00 24 10/08/19 19:31 80 10/08/19 19:03 77 12 24 10/08/19 16:55 78 16 24 10/08/19 16:00 98.6 77 13 130/59 (82) 97 10/08/19 16:00 Mechanical Ventilator 10/08/19 16:00 24 10/08/19 15:20 78 10/08/19 15:05 90 20 24 10/08/19 13:00 94 20 24 Intake and Output 10/08/19 10/09/19 19:00 07:00 Intake Total 740 ml 840 ml Output Total 100 ml Balance 740 ml 740 ml Free Water 200 ml 120 ml Tube Feeding 540 ml 720 ml Stool Total 100 ml Laboratory Tests 10/08/19 23:29: POC Whole Blood Glucose [Pending] 10/09/19 05:08: POC Whole Blood Glucose 233H 10/09/19 11:46: POC Whole Blood Glucose 120H Height (Feet): 5 Height (Inches): 10.00 Weight (Pounds): 120 Objective CV RR Trach clean Lungs CTA New Perma Cath RIJ. Abd SNT. BS + E No CCE Erica Pichardo MD Oct 09, 2019 12:56
--- NOTE | 2019-10-09 13:20 | NUR ---
NURSE NOTES: assist patient to go down for NM Hepatobiliary test. Bag valve during transportation and hooked back on ventilator by RT when patient arrived NM medicine room. Patient's in stable condition, no s/s of distress or SOB, O2 100%. Staying with patient at bedside for the test. Will continue to monitor closely.
[2019-10-09] MEDS ORDERED: Morphine Sulfate 2mg/ml Inj(IV/IM USE ONLY) IVP PRN (14:15)
--- NOTE | 2019-10-09 15:00 | NUR ---
NURSE NOTES: Patient's tachycardia, HR was 150 by palpitation. Patient has been more agitated, uncomfortable. NM test has been postponed. Transported patient back to the floor, tracheal and oral suction. Tube feeding resumed at this moment. Test will be resumed when patient becomes more stable. HR is now 93, O2 100%. Will continue to monitor.
[2019-10-09 16:00] VITALS: BP 130/63
--- NOTE | 2019-10-09 16:36 | NUR ---
NURSE NOTES: Patient's finished NM test, patient arrived back the floor. Stable condition, no s/s distress or SOB, resume tube feeding, oral and trach suction provided. Change rectal tube container, removed 400cc. Will continue to monitor.
--- NOTE | 2019-10-09 16:38 | NUR ---
CASE MANAGEMENT: REVIEW SI: ESRD on HD . CHRONIC LEUKOCYTOSIS T 97.7 HR 89 RR 14 BP 122/56 SAT 99% MECH VENT FIO2 24 GLUCOSE 119 IS: COLISTIN INH Q12HR EPOETIN SUBQ QMWF HEPARIN IV PRN HD NOVOLOG SUBQ Q6HR HD NEEDED STEP DOWN UNIT STATUS DCP: PATIENT HAS BEEN ACCEPTED TO [facility]; WITH OUTPATIENT HD AT [facility] PENDING [facility] FROM [facility] PATIENT HAS BEEN ACCEPTED TO [facility] WITH IN-HOUSE HD; PENDING WBC WITHIN NORMAL LIMITS PATIENT HAS BEEN ACCEPTED TO [facility] WITH OUTPATIENT HD AT [facility] PENDING HEALTH PLAN [facility]
--- NOTE | 2019-10-09 16:41 | NUR ---
*-* INSURANCE *-* UPDATED CLINICALS AND REVIEWS HAVE BEEN FAXED TO: [facility] REF# [id number] RIC:HARPER P:[phone] F:[phone]
--- NOTE | 2019-10-09 17:10 | Diagnostic Imaging Report ---
Indications: Abnormal liver function tests Technique: IV administration 5.5 mCi 99 M technetium Choletec. Serial images obtained over the abdomen for one hour, with subsequent delayed images obtained at 2.5 hours Comparison: Reference made to abdominal sonogram dated 10/06/2019 Findings: Prompt tracer uptake within the liver. Extrahepatic bile ducts are seen at 16 minutes. Excretion into the duodenum demonstrated on the delayed 2 1/2 hour images, not seen prior to 60 minutes . Gallbladder visualized at 22 minutes. Impression: Negative. No evidence of acute cholecystitis or common bile duct obstruction
--- NOTE | 2019-10-09 19:10 | NUR ---
NURSE NOTES: Pt report received by EDMOND DAVEY. pt remains stable. vital signs stable. pt is obtunded neuro jimenez, no acute neuro abnormalities noted. pt is is on teletypesetter monitor showing NSR - V pace, no acute cardiac abnormalities noted. pt is trach vented, sating 99% O2, no acute resp distress noted. pt bed is low, locked, armed, call light within reach, bed rails up times 3. will follow plan of care.
--- NOTE | 2019-10-09 19:29 | NUR ---
NURSE HAND-OFF REPORT: Important Events on Shift: Hyda scan performed Patient Status: Fair Diet: Osmolite 1.2 @60 Pending Orders: n/a Pending Results/Labs: AM lab Pending MD notification:n/a Latest Vital Signs: Temperature 98.1 , Pulse 94 , B/P 130 /63 , Respiratory Rate 21 , O2 SAT 97 , Mechanical Ventilator, O2 Flow Rate 15.0 . Vital Sign Comment: EKG Rhythm: Sinus Rhythm Rhythm change?: N MD Notified?: N - MD Response: Latest Delacruz Fall Score: 70 Fall Risk: High Risk Safety Measures: Call light Within Reach, Bed Alarm Zone 1, Side Rails Side Rails x3, Bed position Low and Locked. Fall Precautions: Yellow Socks Report given to TAMICA Espino
[2019-10-09 20:00] VITALS: BP 147/61
[2019-10-09] MEDS: Dyna-Hex 2% Top Sol 2oz TOPIC SCH (20:14)
[2019-10-09] MEDS: Epoetin Alfa-EPBX(ESRD on dialysis)10,000 unit/ml vial SUBQ SCH (21:12)
--- NOTE | 2019-10-09 21:21 | General Progress Note ---
Assessment/Plan Assessment/Plan: Assessment - abdominal distention, due to colonic dysmotility, - colonoscopy negative to hepatic flexure - diarrhea - presumed TF related - abnormal LFT - higher now, ? etiology --> HIDA negative - Anemia - leukocytosis - stool OB (+) - EGD --> gastritis - Renal failure - Anasarca - resp failure, trach - dysphagia, GT - encephalopathy, contracted - poor px Recommendations - continue TF - Off of Statin - rectal tube - roll side to side as feasible (hard due to severe contractions) - Elevate HOB - f/u labs - PPI - abx - supportive care Subjective Allergies: Coded Allergies: No Known Allergies (Unverified , 06/10/19) Subjective above noted tolerating feeds liquid stool HIDA scan negative Objective Last 24 Hour Vital Signs Date Time Temp Pulse Resp B/P (MAP) Pulse Ox O2 Delivery O2 Flow Rate FiO2 10/09/19 20:55 80 13 24 10/09/19 20:15 96 142/61 10/09/19 20:00 24 10/09/19 20:00 93 10/09/19 18:51 94 21 24 10/09/19 16:58 91 18 24 10/09/19 16:00 Mechanical Ventilator 10/09/19 16:00 92 10/09/19 16:00 98.1 92 17 130/63 (85) 97 10/09/19 16:00 24 10/09/19 15:01 93 12 24 10/09/19 12:40 92 16 24 10/09/19 12:00 97.7 89 14 122/56 (78) 99 10/09/19 12:00 24 10/09/19 12:00 Mechanical Ventilator 10/09/19 11:33 91 10/09/19 11:03 90 20 24 10/09/19 09:27 93 19 24 10/09/19 08:47 91 118/46 10/09/19 08:47 118/46 10/09/19 08:00 Mechanical Ventilator 10/09/19 08:00 98.1 93 16 123/53 (76) 100 10/09/19 08:00 92 10/09/19 08:00 24 10/09/19 06:55 94 16 24 10/09/19 05:09 72 13 24 10/09/19 04:02 87 8/31/20 04:00 Mechanical Ventilator 10/09/19 04:00 24 10/09/19 04:00 97.7 77 12 134/65 (88) 100 10/09/19 02:38 75 14 24 10/09/19 00:41 78 12 24 10/09/19 00:00 98.0 79 14 124/60 (81) 100 10/09/19 00:00 Mechanical Ventilator 10/08/19 23:57 84 10/08/19 22:33 74 13 24 Intake and Output 10/08/19 10/09/19 19:00 07:00 Intake Total 740 ml 840 ml Output Total 100 ml Balance 740 ml 740 ml Free Water 200 ml 120 ml Tube Feeding 540 ml 720 ml Stool Total 100 ml Laboratory Tests 10/08/19 23:29: POC Whole Blood Glucose [Pending] 10/09/19 05:08: POC Whole Blood Glucose 233H 10/09/19 11:46: POC Whole Blood Glucose 120H 10/09/19 15:14: POC Whole Blood Glucose 119H 10/09/19 17:55: POC Whole Blood Glucose 136H Height (Feet): 5 Height (Inches): 10.00 Weight (Pounds): 120 Objective Debilitated AA man NCAT (+) trach coarse BS RR abd less distended, anasarca, (+) GT, (+) rectal tube ext contracted Ronny Mustafa MD Oct 09, 2019 21:21
[2019-10-10] VITALS: BP 124/45
[2019-10-10 04:00] VITALS: BP 113/80
[2019-10-10 05:22] LABS: BASOPHILS % (AUTO) 0.7 % (0.0-2.0); EOSINOPHILS % (AUTO) 8.6 % (0.0-3.0); HEMATOCRIT 29.6 % (42.0-52.0); HEMOGLOBIN 8.9 G/DL (14.2-18.0); LYMPHOCYTES % (AUTO) 17.3 % (20.0-45.0); MEAN CORPUSCULAR VOLUME 80 FL (80-99); MONOCYTES % (AUTO) 9.1 % (1.0-10.0); NEUTROPHILS % (AUTO) 64.2 % (45.0-75.0); PLATELET COUNT 549 K/UL (150-450); RED BLOOD COUNT 3.71 M/UL (4.70-6.10); RED CELL DISTRIBUTION WIDTH 16.7 % (11.6-14.8); WHITE BLOOD COUNT 15.4 K/UL (4.8-10.8)
[2019-10-10 05:52] LABS: ALANINE AMINOTRANSFERASE 108 U/L (12-78); ALBUMIN 1.8 G/DL (3.4-5.0); ALBUMIN/GLOBULIN RATIO 0.3 (1.0-2.7); ALKALINE PHOSPHATASE 289 U/L (46-116); ANION GAP 12 mmol/L (5-15); ASPARTATE AMINO TRANSFERASE 96 U/L (15-37); BILIRUBIN,TOTAL 0.4 MG/DL (0.2-1.0); BLOOD UREA NITROGEN 114 mg/dL (7-18); CALCIUM 8.9 MG/DL (8.5-10.1); CARBON DIOXIDE 25 MMOL/L (21-32); CHLORIDE 94 MMOL/L (98-107); POTASSIUM 5.5 MMOL/L (3.5-5.1); SODIUM 131 MMOL/L (136-145)
[2019-10-10] MEDS: NovoLOG Insulin Flexpen SUBQ SCH ×3 (05:57→18:00)
[2019-10-10] MEDS ORDERED: Heparin Sod 1000 units/ml 10ml IV PRN (06:00)
--- NOTE | 2019-10-10 06:45 | NUR ---
NURSE NOTES: spoke to dietitian regarding pts tube feeding and trend of blood sugar and lab values. she recommended pts tube feeding should be switched to Nephro 1.8 at 45cc for 20 hrs due to current Potassium level. Addendum: 10/10/19 at 0657 by ARMANDO GUZMAN RN NURSE NOTES: spoke to dietitian regarding pts tube feeding, bowl movements and trend of blood sugar checks and lab values. she recommended pts tube feeding should be switched to Nephro 1.8 at 45cc for 20 hrs due to current Potassium level.
--- NOTE | 2019-10-10 07:15 | NUR ---
NURSE NOTES: Received report from Srinivas Cortez RN. Pt is lying in bed in semi-rivera's position. [facility] as ordered. Pt on rectal tube flowing and patent with liquid stool. (brown in color.) Pt has no signs of pain or facial grimacing. VS WNL. Pt eyes is open but pt is obtunded. IV site patent and intact. Continue to plan of care.
--- NOTE | 2019-10-10 07:19 | Hematology/Onc Progress Note ---
Assessment/Plan Assessment/Plan Assessment/recs # Anemia due to chronic disease/kidney disease as well, gi bleed + occult + noted --> was on iron in the past, now on hold --> has been started on Epogen sq --> as per renal care --> egd done and shows gastritis --> on ppi --> egd showed gastritis, colo recently done --> hgb 9-->8.7-->7.6-->9.2-->8.9-->9.2->9.3-->8.8->9.9-->9.2-->8.1-->8.7-->7.9- ->8.6-->8.9-->8.2->9-->9.3->8.9-->9.5-->10.6->9.2-->10->8.9 --> spep ordered->wnl # Leukocytosis - with multiple infections, VRE UTI, flow is negative --> wbc trend 33-->28-->25->23->22->23->24->17.3-->17-->14->16-->15.6-->14-->14- >13->19->18->17->22->22->19->17-->18->20-->15-->14->16-->14-->17->18-->17->15 --> on abx, linezolid and zosyn--> zosyn-->gent-->off --> + blood cultures with coag neg staph likely contaminated --> as per id recs --> has ordered a flow cytometry (with pathology) --> does show increased nK cell activity --> JOURDAN 2 and bcr-abl labs ordered (these are send outs)->negative --> plt 585-->613-->649-->669->663-->529-->506 # Elevated ddimer on admission --> duplex lower legs neg for dvt # Respiratory failure --> per pulm, s/p trach --> COVID 19 test negative x 2 # Hyperlipidemia --> statin po # Dysphagia s/p gtube with nepro --> per gi # ESRD with r fem julito --> hd as per renal # Dvt ppx scds Appreciate consultation and matt Rn Subjective Allergies: Coded Allergies: No Known Allergies (Unverified , 06/10/19) All Systems: reviewed and negative except above Subjective 08/15 meds noted, no bleeding, hgb 8.8, wbc 28, path flow pending 08/16 flow pending dw pathologist, results pending, wbc 25, hgb 9 08/17 labs reviewed, meds reviewed, meds noted, no night sweats 08/19 remains obtunded, on vent/trach, no bleeding wbc 21.7 08/20 labs have been reviewed, no bleeding, wbc still elev, path reviewed 08/21 labs are noted, no bleeding, on vent, wbc better 08/22 labs noted, no bleeding, meds reviewed, wbc 24 hgb 7.6 08/23 vent, off abx, c diff negative, h/h stable 08/24 labs reviewed, on abx, wbc 17, hgb 8.9, no hemolysis 08/26 reviewed flow and is negative for leukemia, matt rn 08/27 meds reviewed, no night sweats, matt rn, no major bleeding 08/28 meds reivewed, labs noted 08/29 wbc is stable, approx 15, hgb 8.8, no hemolysis 08/30 labs are noted, is for colo today, hgb 9.9 08/31 right fem julito in place, unchanged, hgb 9.2, gi aware 09/01 labs noted, hgb 8.8, plt >600, no bleeding 09/02 labs noted, no bleeding, with elev wbc still, no new changes 09/03 meds are noted, no bleeding, labs reviewed hgb 8.6 09/04 no major events, hd as per renal, abx, no bleeding hgb low 09/05 labs are noted, no bleeding, meds have been reviewed 09/06 no new labs no hemolysis, cbc is noted, no bleeding 09/07 meds reviewed, no bleeding, matt rn, permacath functioning well 09/09 meds reviewed, wbc still elevated, as per id recs, cbc noted 09/10 is obtunded, with gutbe in place, labs reviewed 09/11 obtunded, as per id, observe now off abx, labs noted, wbc 19 09/12 cbc is pending, remains on epogen, also off abx 09/13 labs reviewed, no bleeding, elev wbc, no night sweats 09/14 meds noted, no bleeding, wbc 19, hgb 9.5, no night sweats 09/21 obtunded, remains on vent, labs noted, no bleeding, hgb 8.9 09/22 obtunded, labs noted, no bleeding, on vent, unchanged 09/23 unchanges, wbc remains elevated 20k, on abx, on vent 09/24 labs have been reviewed, no bleeding, wbc 15, may need abx 09/25 formula gtube changed, labs noted, remains obtunded, hgb 9.3 09/26 labs have been reviewed, no bleeding, matt rn, no night sweats 09/27 meds reviewed, no bleeding, wbc 14, on abx, remains obtunded 09/28 remains obtunded, no bleeding, wbc better, hgb 8.9, no hemolysis, plt 506 09/30 on colisitn, wbc elevated, cefepime added per id, hgb stable 10/01 labs reviewed, no bleeding, matt rn, no major events noted, wbc 14, hgb 10.6 10/02 labs have been noted, hgb 9.2, wbc 17, on abx, matt wright 10/03 continue on tube feeds, no bleeding, on vent, wbc remains elevated 10/04 remains ibtunded, is on a mechanical ventilator with tube feeds noted 10/05 labs are noted, hgb 8.6, wbc remains elevated, have ordered for spep 10/07 obtunded on vent, with gtube feeds, labs reviewed, matt rn 10/08 labs are noted, on vent/trach, hgb 10.2, remains obtunded 10/09 labns noted, wbc 15, hgb 8.9, remains altered, on tfs Objective Objective Current Medications Medications (Trade) Dose Ordered Sig/Leonel Route PRN Reason Start Time Stop Time Status Last Admin Dose Admin Acetaminophen (Tylenol) 650 mg Q4H PRN GT Mild Pain (Pain Scale 1-3) 09/21/19 12:45 10/21/19 12:44 10/07/19 23:28 Chlorhexidine Gluconate (Felipa-Hex 2%) 1 applic DAILY@2000 TOPIC 09/12/19 20:00 12/11/19 19:59 10/09/19 20:14 Clonidine HCl (Catapres Tab) 0.1 mg Q4H PRN GT For High Blood Pressure 09/09/19 12:30 12/08/19 05:29 09/15/19 04:10 Dextrose (Dextrose 50%) 25 ml Q30M PRN IV Hypoglycemia 08/09/19 07:30 11/07/19 07:29 Dextrose (Dextrose 50%) 50 ml Q30M PRN IV Hypoglycemia 08/09/19 07:30 11/07/19 07:29 Diphenoxylate HCl/ Atropine (Lomotil) 2.5 mg QID PRN ORAL Diarrhea 09/24/19 08:45 10/24/19 08:44 Epoetin Andreas (Epoetin Andreas(ESRD on dialysis)) 10,000 unit WED-WED-WED SUBQ 10/09/19 21:00 01/07/20 20:59 10/09/19 21:12 Famotidine (Pepcid) 20 mg DAILY GT 08/30/19 09:00 11/28/19 08:59 10/09/19 08:47 Heparin Sodium (Porcine) (Heparin Sod 1000 units/ml 10ml) 2,000 unit ONCE PRN IV HD 10/10/19 06:00 10/10/19 23:59 Insulin Aspart (NovoLOG) Q6HR SUBQ 09/25/19 18:00 11/07/19 11:29 10/10/19 05:57 Lactobacillus Acidophilus (Culturelle) 1 tab EVERY 12 HOURS GT 10/03/19 21:00 12/13/19 17:59 10/09/19 20:14 Metoprolol Tartrate (Lopressor) 200 mg Q12HR GT 08/09/19 09:00 11/07/19 08:59 10/09/19 20:15 Minoxidil (Loniten) 5 mg DAILY GT 08/09/19 09:00 11/07/19 08:59 10/09/19 08:47 Sodium Chloride 1,000 ml @ 500 mls/hr Q2H PRN IVLG sbp<90 during hd 10/10/19 06:00 10/10/19 23:59 Zinc Oxide (Zinc Oxide) 1 applic EVERY 12 HOURS TOPIC 10/03/19 09:00 11/08/19 17:59 10/09/19 20:15 Last 24 Hour Vital Signs Date Time Temp Pulse Resp B/P (MAP) Pulse Ox O2 Delivery O2 Flow Rate FiO2 10/10/19 06:53 86 19 24 10/10/19 05:02 88 17 24 10/10/19 04:00 97.8 90 17 113/80 (91) 97 10/10/19 04:00 Mechanical Ventilator 10/10/19 03:46 88 10/10/19 03:34 24 10/10/19 03:16 86 16 24 10/10/19 00:33 82 17 24 10/10/19 00:00 24 10/10/19 00:00 98.0 80 17 124/45 (71) 97 10/10/19 00:00 77 10/10/19 00:00 Mechanical Ventilator 10/09/19 23:09 79 16 24 10/09/19 20:55 80 13 24 10/09/19 20:15 96 142/61 10/09/19 20:00 Mechanical Ventilator 10/09/19 20:00 98.2 80 17 147/61 (89) 98 10/09/19 20:00 24 10/09/19 20:00 93 10/09/19 18:51 94 21 24 10/09/19 16:58 91 18 24 10/09/19 16:00 Mechanical Ventilator 10/09/19 16:00 92 10/09/19 16:00 98.1 92 17 130/63 (85) 97 10/09/19 16:00 24 10/09/19 15:01 93 12 24 10/09/19 12:40 92 16 24 10/09/19 12:00 97.7 89 14 122/56 (78) 99 10/09/19 12:00 24 10/09/19 12:00 Mechanical Ventilator 10/09/19 11:33 91 10/09/19 11:03 90 20 24 10/09/19 09:27 93 19 24 10/09/19 08:47 91 118/46 10/09/19 08:47 118/46 8/31/20 08:00 Mechanical Ventilator 10/09/19 08:00 98.1 93 16 123/53 (76) 100 10/09/19 08:00 92 10/09/19 08:00 24 10/09/19 06:55 94 16 24 10/09/19 05:09 72 13 24 10/09/19 04:02 87 10/09/19 04:00 Mechanical Ventilator 10/09/19 04:00 24 10/09/19 04:00 97.7 77 12 134/65 (88) 100 10/09/19 02:38 75 14 24 10/09/19 00:41 78 12 24 10/09/19 00:00 98.0 79 14 124/60 (81) 100 10/09/19 00:00 Mechanical Ventilator 10/08/19 23:57 84 10/08/19 22:33 74 13 24 10/08/19 20:46 72 15 24 10/08/19 20:25 97.9 81 14 130/52 (78) 100 10/08/19 20:24 80 130/52 10/08/19 20:00 Mechanical Ventilator 10/08/19 20:00 24 10/08/19 19:31 80 10/08/19 19:03 77 12 24 10/08/19 16:55 78 16 24 10/08/19 16:00 98.6 77 13 130/59 (82) 97 10/08/19 16:00 Mechanical Ventilator 10/08/19 16:00 24 10/08/19 15:20 78 10/08/19 15:05 90 20 24 10/08/19 13:00 94 20 24 10/08/19 12:00 24 10/08/19 12:00 Mechanical Ventilator 10/08/19 12:00 98.9 95 17 142/70 (94) 98 10/08/19 11:42 94 10/08/19 11:05 94 20 24 10/08/19 09:05 89 16 24 10/08/19 08:40 134/63 10/08/19 08:39 89 134/63 10/08/19 08:10 90 18 24 10/08/19 08:00 24 10/08/19 08:00 98.6 89 15 134/63 (86) 99 10/08/19 08:00 Mechanical Ventilator 10/08/19 07:50 89 Intake and Output 10/09/19 10/10/19 19:00 07:00 Intake Total 450 ml 660 ml Output Total 400 ml 50 ml Balance 50 ml 610 ml Free Water 150 ml Tube Feeding 300 ml 660 ml Stool Total 400 ml 50 ml # Voids 1 # Bowel Movements 1 Labs Test 10/07/19 13:55 10/07/19 22:56 10/08/19 04:07 10/08/19 05:14 White Blood Count 20.0 K/UL (4.8-10.8) 16.8 K/UL (4.8-10.8) Red Blood Count 4.06 M/UL (4.70-6.10) 4.14 M/UL (4.70-6.10) Hemoglobin 9.9 G/DL (14.2-18.0) 10.2 G/DL (14.2-18.0) Hematocrit 32.6 % (42.0-52.0) 33.5 % (42.0-52.0) Mean Corpuscular Volume 80 FL (80-99) 81 FL (80-99) Mean Corpuscular Hemoglobin 24.3 PG (27.0-31.0) 24.6 PG (27.0-31.0) Mean Corpuscular Hemoglobin Concent 30.3 G/DL (32.0-36.0) 30.4 G/DL (32.0-36.0) Red Cell Distribution Width 16.3 % (11.6-14.8) 16.8 % (11.6-14.8) Platelet Count 478 K/UL (150-450) 505 K/UL (150-450) Mean Platelet Volume 5.8 FL (6.5-10.1) 5.9 FL (6.5-10.1) Neutrophils (%) (Auto) % (45.0-75.0) 71.5 % (45.0-75.0) Lymphocytes (%) (Auto) % (20.0-45.0) 14.7 % (20.0-45.0) Monocytes (%) (Auto) % (1.0-10.0) 6.8 % (1.0-10.0) Eosinophils (%) (Auto) % (0.0-3.0) 6.2 % (0.0-3.0) Basophils (%) (Auto) % (0.0-2.0) 0.8 % (0.0-2.0) Differential Total Cells Counted 100 Neutrophils % (Manual) 64 % (45-75) Lymphocytes % (Manual) 25 % (20-45) Monocytes % (Manual) 6 % (1-10) Eosinophils % (Manual) 4 % (0-3) Basophils % (Manual) 0 % (0-2) Band Neutrophils 1 % (0-8) Platelet Estimate Increased Platelet Morphology Normal Hypochromasia 1+ Anisocytosis 1+ Microcytosis 1+ Macrocytosis Occasional Sodium Level 134 MMOL/L (136-145) 132 MMOL/L (136-145) Potassium Level 4.6 MMOL/L (3.5-5.1) 5.0 MMOL/L (3.5-5.1) Chloride Level 96 MMOL/L (98-107) 95 MMOL/L (98-107) Carbon Dioxide Level 27 MMOL/L (21-32) 27 MMOL/L (21-32) Anion Gap 11 mmol/L (5-15) 10 mmol/L (5-15) Blood Urea Nitrogen 36 mg/dL (7-18) 59 mg/dL (7-18) Creatinine 2.7 MG/DL (0.55-1.30) 3.7 MG/DL (0.55-1.30) Estimat Glomerular Filtration Rate 23.0 mL/min (>60) 16.0 mL/min (>60) Glucose Level 126 MG/DL (74-106) 229 MG/DL (74-106) Calcium Level 8.8 MG/DL (8.5-10.1) 9.0 MG/DL (8.5-10.1) Total Bilirubin 0.5 MG/DL (0.2-1.0) Aspartate Amino Transf (AST/SGOT) 151 U/L (15-37) Alanine Aminotransferase (ALT/SGPT) 130 U/L (12-78) Alkaline Phosphatase 312 U/L (46-116) Total Protein 9.6 G/DL (6.4-8.2) Albumin 1.9 G/DL (3.4-5.0) Globulin 7.7 g/dL Albumin/Globulin Ratio 0.2 (1.0-2.7) Test 10/08/19 23:29 10/09/19 05:08 10/09/19 11:46 10/09/19 15:14 POC Whole Blood Glucose 233 MG/DL (74-106) 120 MG/DL (74-106) 119 MG/DL (74-106) Test 10/09/19 17:55 10/09/19 23:34 10/10/19 03:20 10/10/19 05:52 POC Whole Blood Glucose 136 MG/DL (74-106) 202 MG/DL (74-106) White Blood Count 15.4 K/UL (4.8-10.8) Red Blood Count 3.71 M/UL (4.70-6.10) Hemoglobin 8.9 G/DL (14.2-18.0) Hematocrit 29.6 % (42.0-52.0) Mean Corpuscular Volume 80 FL (80-99) Mean Corpuscular Hemoglobin 24.0 PG (27.0-31.0) Mean Corpuscular Hemoglobin Concent 30.1 G/DL (32.0-36.0) Red Cell Distribution Width 16.7 % (11.6-14.8) Platelet Count 549 K/UL (150-450) Mean Platelet Volume 5.8 FL (6.5-10.1) Neutrophils (%) (Auto) 64.2 % (45.0-75.0) Lymphocytes (%) (Auto) 17.3 % (20.0-45.0) Monocytes (%) (Auto) 9.1 % (1.0-10.0) Eosinophils (%) (Auto) 8.6 % (0.0-3.0) Basophils (%) (Auto) 0.7 % (0.0-2.0) Sodium Level 131 MMOL/L (136-145) Potassium Level 5.5 MMOL/L (3.5-5.1) Chloride Level 94 MMOL/L (98-107) Carbon Dioxide Level 25 MMOL/L (21-32) Anion Gap 12 mmol/L (5-15) Blood Urea Nitrogen 114 mg/dL (7-18) Glucose Level 177 MG/DL (74-106) Calcium Level 8.9 MG/DL (8.5-10.1) Total Bilirubin 0.4 MG/DL (0.2-1.0) Aspartate Amino Transf (AST/SGOT) 96 U/L (15-37) Alanine Aminotransferase (ALT/SGPT) 108 U/L (12-78) Alkaline Phosphatase 289 U/L (46-116) Total Protein 8.8 G/DL (6.4-8.2) Albumin 1.8 G/DL (3.4-5.0) Globulin 7.0 g/dL Albumin/Globulin Ratio 0.3 (1.0-2.7) Height (Feet): 5 Height (Inches): 10.00 Weight (Pounds): 123 Objective Physical Exam General Appearance: nad, Chronically Ill Head: normocephalic Eyes: right eye PERRL - Will not open left eye ENT: moist mucus membranes Neck: other - submandibular mass R, fairly rigid with resistance to rotation to L, tracheotomy Respiratory: decreased breath sounds, crackles, other - pacemaker, vent+ Cardiovascular: regular rate, rhythm, edema - anasarca Gastrointestinal: non tender, distended, other - G tube Genitourinary: other Musculoskeletal: other - Contractures all extremities Neurologic: sensory intact, motor weakness, responsive Psychiatric: other Skin: Decubitus/Ulcer - Stage III right elbow, stage III left elbow, stage II sacrum, stage III scrotum, warm/dry Fitz Campos MD Oct 10, 2019 07:19
--- NOTE | 2019-10-10 07:20 | NUR ---
NURSE HAND-OFF REPORT: Important Events on Shift:[NA] Patient Status: [STABLE] Diet: [TUBE FEEDING] Pending Orders: [possible tube feeding formula change] Pending Results/Labs:[post HD] Pending MD notification:[NA] Latest Vital Signs: Temperature 97.8 , Pulse 86 , B/P 113 /80 , Respiratory Rate 19 , O2 SAT 97 , Mechanical Ventilator, O2 Flow Rate 15.0 . Vital Sign Comment: [STABLE] EKG Rhythm: Sinus Rhythm Rhythm change?: N MD Notified?: N - MD Response: Latest Delacruz Fall Score: 70 Fall Risk: High Risk Safety Measures: Call light Within Reach, Bed Alarm Zone 1, Side Rails Side Rails x3, Bed position Low and Locked. Fall Precautions: Yellow Socks Report given to [BEATRIZ DAVEY].
[2019-10-10 07:21] LABS: CREATININE 5.4 MG/DL (0.55-1.30)
--- NOTE | 2019-10-10 07:52 | General Progress Note ---
Assessment/Plan Assessment/Plan: IMPRESSION: 1. anemia. 2. fevers improved 3. Leukocytosis. 4. hypotension 5. Acute on chronic renal failure. 6. Hyponatremia. 7. Severe protein-calorie malnutrition. 8. Significantly elevated C-reactive protein concerning for infectious etiology. 9. Tracheostomy, G-tube. 10. Ventilator dependence. 11. anasarca 12. Hematuria 13. V pacing 14. hyponatremia 15. transaminitis, HIDA negative PLAN chronic care; unable to place care noted may need CT on vent/ no wean monitor labs and optimize ID follow up dialysis ongoing prognosis poor for recovery impression, plan, and exam edited and reviewed in detail care discussed with RN Subjective Allergies: Coded Allergies: No Known Allergies (Unverified , 06/10/19) Subjective remains ill on vent/ no change on HD vitals noted Objective Last 24 Hour Vital Signs Date Time Temp Pulse Resp B/P (MAP) Pulse Ox O2 Delivery O2 Flow Rate FiO2 10/10/19 06:53 86 19 24 10/10/19 05:02 88 17 24 10/10/19 04:00 97.8 90 17 113/80 (91) 97 10/10/19 04:00 Mechanical Ventilator 10/10/19 03:46 88 10/10/19 03:34 24 10/10/19 03:16 86 16 24 10/10/19 00:33 82 17 24 10/10/19 00:00 24 10/10/19 00:00 98.0 80 17 124/45 (71) 97 10/10/19 00:00 77 10/10/19 00:00 Mechanical Ventilator 10/09/19 23:09 79 16 24 10/09/19 20:55 80 13 24 10/09/19 20:15 96 142/61 10/09/19 20:00 Mechanical Ventilator 10/09/19 20:00 98.2 80 17 147/61 (89) 98 10/09/19 20:00 24 10/09/19 20:00 93 10/09/19 18:51 94 21 24 10/09/19 16:58 91 18 24 10/09/19 16:00 Mechanical Ventilator 10/09/19 16:00 92 10/09/19 16:00 98.1 92 17 130/63 (85) 97 10/09/19 16:00 24 8/31/20 15:01 93 12 24 10/09/19 12:40 92 16 24 10/09/19 12:00 97.7 89 14 122/56 (78) 99 10/09/19 12:00 24 10/09/19 12:00 Mechanical Ventilator 10/09/19 11:33 91 10/09/19 11:03 90 20 24 10/09/19 09:27 93 19 24 10/09/19 08:47 91 118/46 10/09/19 08:47 118/46 10/09/19 08:00 Mechanical Ventilator 10/09/19 08:00 98.1 93 16 123/53 (76) 100 10/09/19 08:00 92 10/09/19 08:00 24 Intake and Output 10/09/19 10/10/19 19:00 07:00 Intake Total 450 ml 660 ml Output Total 400 ml 50 ml Balance 50 ml 610 ml Free Water 150 ml Tube Feeding 300 ml 660 ml Stool Total 400 ml 50 ml # Voids 1 # Bowel Movements 1 Laboratory Tests 10/09/19 11:46: POC Whole Blood Glucose 120H 10/09/19 15:14: POC Whole Blood Glucose 119H 10/09/19 17:55: POC Whole Blood Glucose 136H 10/09/19 23:34: POC Whole Blood Glucose 202H 10/10/19 03:20: White Blood Count 15.4H, Red Blood Count 3.71L, Hemoglobin 8.9L, Hematocrit 29.6L, Mean Corpuscular Volume 80, Mean Corpuscular Hemoglobin 24.0L, Mean Corpuscular Hemoglobin Concent 30.1L, Red Cell Distribution Width 16.7H, Platelet Count 549H, Mean Platelet Volume 5.8L, Neutrophils (%) (Auto) 64.2, Lymphocytes (%) (Auto) 17.3L, Monocytes (%) (Auto) 9.1, Eosinophils (%) (Auto) 8.6H, Basophils (%) (Auto) 0.7, Sodium Level 131L, Potassium Level 5.5H, Chloride Level 94L, Carbon Dioxide Level 25, Anion Gap 12, Blood Urea Nitrogen 114H, Creatinine 5.4H, Estimat Glomerular Filtration Rate 10.3, Glucose Level 177H, Calcium Level 8.9, Total Bilirubin 0.4, Aspartate Amino Transf (AST/SGOT) 96H, Alanine Aminotransferase (ALT/SGPT) 108H, Alkaline Phosphatase 289H, Total Protein 8.8H, Albumin 1.8L, Globulin 7.0, Albumin/Globulin Ratio 0.3L 10/10/19 05:52: POC Whole Blood Glucose [Pending] Height (Feet): 5 Height (Inches): 10.00 Weight (Pounds): 123 Objective GENERAL: Ill-appearing male, chronically debilitated. HEENT: Tracheostomy in midline. Questionable fullness in the submandibular region. LUNGS: Coarse breath sounds. reduced breath sounds CARDIAC: S1, S2. Regular rate and rhythm. ABDOMEN: Soft. G-tube. EXTREMITIES: With noted edema. NEUROLOGICAL: Poorly responsive, weak diffusely. Kain Ramirez MD Oct 10, 2019 07:52
[2019-10-10 08:00] VITALS: BP 153/74
[2019-10-10] MEDS: Lactobacillus-GG tablet GT SCH ×2 (08:04→20:09)
[2019-10-10] MEDS: Metoprolol Tartrate 100mg tab GT SCH ×2 (08:05→20:09)
[2019-10-10] MEDS: Minoxidil 2.5mg tab GT SCH (08:05)
[2019-10-10] MEDS: Zinc Oxide Oint 2oz TOPIC SCH ×2 (08:06→20:09)
--- NOTE | 2019-10-10 08:30 | NUR ---
NURSE NOTES: Pt was seen by Dr. Mustafa. ordered to change to current TF to Nephro goal is 45cc/hr.
--- NOTE | 2019-10-10 08:41 | NUR ---
RD ASSESSMENT & RECOMMENDATIONS SEE CARE ACTIVITY FOR COMPLETE ASSESSMENT DAILY ESTIMATED NEEDS: Needs based on Renal, critical care, wound/ 61kg 22-30 kcals/kg [id number] total kcals 1.25-2 g protein/kg 76-122 g total protein Fluid per MD, now on HD NUTRITION DIAGNOSIS: * Swallowing difficulty R/T respiratory failure, dysphagia as evidenced by trach/vent dep, PEG dep * Increased kcal/prot needs R/T wound healing as evidenced by admitted w/ multiple pressure injuries including full thickness wounds at junction of Shaft of penis, dorsal scrotum, R elbow, and DTPI @ L buttocks. CURRENT TF:Osmolite 1.2 @ 60ml/hr x 20 hrs + Garo BID ENTERAL NUTRITION RECOMMENDATIONS: Nepro @45ml/hr x20 hrs to provide 900ml, 1620 kcal, 73g pro, 654 ml free H2O -> POTASSIUM TRENDING UP-> rec TF change to Nepro. - Start @25ml/hr for 6 hrs, advance as tolerated 10ml/hr q4-6 hrs to goal of 45ml/hr x20 for 4 hr GI rest. - When tolerating TF at goal, add PROSOURCE qdaily (11g pro) to better meet est pro needs - Flush per MD/ HOB over 30 degrees. -------- ADDITIONAL RECOMMENDATIONS: * Per SNF: HT=63" OQ=518 lbs (vs EMR wt of 166lbs) -> obtain re-calibrated bedscale wt, rec daily wt monitoring * Wound healing: con't Nephrovite + Garo BID/ Vit C dosing per Nephro * Monitor renal fxn and lytes closely w/ non-renal TF (K=5.0, 5.5) -> Rec increased insulin w/ BG labs (on peter q6) * Monitor BGs w/ noncarb controlled TF, need for long acting insulin * Monitor stool output, need to change TF again
--- NOTE | 2019-10-10 08:48 | NUR ---
NURSE NOTES: Spoke to Anais from [facility]. As per Anais someone will gonna call back for the schedule for HD
--- NOTE | 2019-10-10 10:15 | NUR ---
Started TF nepro at 20cc/hr. continue to monitor.
--- NOTE | 2019-10-10 10:48 | Infectious Diseases Prog Note ---
"Assessment/Plan Assessment/Plan antibiotics : none A 1. acenitobacter | proteus pneumonia s/p rx 2. respiratory failure 3. leucocytosis 4. COVID 19 test negative x 2 5. renal failure on HD P 1. continue off antibiotics 2. will follow up cultures Subjective ROS Limited/Unobtainable: Yes Allergies: Coded Allergies: No Known Allergies (Unverified , 06/10/19) Objective Last 24 Hour Vital Signs Date Time Temp Pulse Resp B/P (MAP) Pulse Ox O2 Delivery O2 Flow Rate FiO2 10/10/19 09:00 81 19 24 10/10/19 08:05 88 153/74 10/10/19 08:05 153/74 10/10/19 08:00 98.1 88 18 153/74 (100) 95 10/10/19 08:00 Mechanical Ventilator 10/10/19 08:00 24 10/10/19 07:42 86 10/10/19 06:53 86 19 24 10/10/19 05:02 88 17 24 10/10/19 04:00 97.8 90 17 113/80 (91) 97 10/10/19 04:00 Mechanical Ventilator 10/10/19 03:46 88 10/10/19 03:34 24 10/10/19 03:16 86 16 24 10/10/19 00:33 82 17 24 10/10/19 00:00 24 10/10/19 00:00 98.0 80 17 124/45 (71) 97 10/10/19 00:00 77 10/10/19 00:00 Mechanical Ventilator 10/09/19 23:09 79 16 24 10/09/19 20:55 80 13 24 10/09/19 20:15 96 142/61 10/09/19 20:00 Mechanical Ventilator 10/09/19 20:00 98.2 80 17 147/61 (89) 98 10/09/19 20:00 24 10/09/19 20:00 93 10/09/19 18:51 94 21 24 10/09/19 16:58 91 18 24 10/09/19 16:00 Mechanical Ventilator 10/09/19 16:00 92 10/09/19 16:00 98.1 92 17 130/63 (85) 97 10/09/19 16:00 24 10/09/19 15:01 93 12 24 10/09/19 12:40 92 16 24 10/09/19 12:00 97.7 89 14 122/56 (78) 99 10/09/19 12:00 24 10/09/19 12:00 Mechanical Ventilator 10/09/19 11:33 91 10/09/19 11:03 90 20 24 Height (Feet): 5 Height (Inches): 10.00 Weight (Pounds): 123 Respiratory/Chest: lungs clear Cardiovascular: normal rate, regular rhythm, no gallop/murmur Abdomen: soft, non tender, other - GT Extremities: no edema, other - right subclavian catheter Laboratory Tests Test 10/09/19 11:46 10/09/19 15:14 10/09/19 17:55 10/09/19 23:34 POC Whole Blood Glucose 120 MG/DL (74-106) H 119 MG/DL (74-106) H 136 MG/DL (74-106) H 202 MG/DL (74-106) H Test 10/10/19 03:20 10/10/19 05:52 White Blood Count 15.4 K/UL (4.8-10.8) H Red Blood Count 3.71 M/UL (4.70-6.10) L Hemoglobin 8.9 G/DL (14.2-18.0) L Hematocrit 29.6 % (42.0-52.0) L Mean Corpuscular Volume 80 FL (80-99) Mean Corpuscular Hemoglobin 24.0 PG (27.0-31.0) L Mean Corpuscular Hemoglobin Concent 30.1 G/DL (32.0-36.0) L Red Cell Distribution Width 16.7 % (11.6-14.8) H Platelet Count 549 K/UL (150-450) H Mean Platelet Volume 5.8 FL (6.5-10.1) L Neutrophils (%) (Auto) 64.2 % (45.0-75.0) Lymphocytes (%) (Auto) 17.3 % (20.0-45.0) L Monocytes (%) (Auto) 9.1 % (1.0-10.0) Eosinophils (%) (Auto) 8.6 % (0.0-3.0) H Basophils (%) (Auto) 0.7 % (0.0-2.0) Sodium Level 131 MMOL/L (136-145) L Potassium Level 5.5 MMOL/L (3.5-5.1) H Chloride Level 94 MMOL/L (98-107) L Carbon Dioxide Level 25 MMOL/L (21-32) Anion Gap 12 mmol/L (5-15) Blood Urea Nitrogen 114 mg/dL (7-18) H Creatinine 5.4 MG/DL (0.55-1.30) H Estimat Glomerular Filtration Rate 10.3 mL/min (>60) Glucose Level 177 MG/DL (74-106) H Calcium Level 8.9 MG/DL (8.5-10.1) Total Bilirubin 0.4 MG/DL (0.2-1.0) Aspartate Amino Transf (AST/SGOT) 96 U/L (15-37) H Alanine Aminotransferase (ALT/SGPT) 108 U/L (12-78) H Alkaline Phosphatase 289 U/L (46-116) H Total Protein 8.8 G/DL (6.4-8.2) H Albumin 1.8 G/DL (3.4-5.0) L Globulin 7.0 g/dL Albumin/Globulin Ratio 0.3 (1.0-2.7) L POC Whole Blood Glucose Pending Current Medications Medications (Trade) Dose Ordered Sig/Leonel Route PRN Reason Start Time Stop Time Status Last Admin Dose Admin Acetaminophen (Tylenol) 650 mg Q4H PRN GT Mild Pain (Pain Scale 1-3) 09/21/19 12:45 10/21/19 12:44 10/07/19 23:28 Chlorhexidine Gluconate (Felipa-Hex 2%) 1 applic DAILY@1999 TOPIC 09/12/19 20:00 12/11/19 19:59 10/09/19 20:14 Clonidine HCl (Catapres Tab) 0.1 mg Q4H PRN GT For High Blood Pressure 09/09/19 12:30 12/08/19 05:29 09/15/19 04:10 Dextrose (Dextrose 50%) 25 ml Q30M PRN IV Hypoglycemia 08/09/19 07:30 11/07/19 07:29 Dextrose (Dextrose 50%) 50 ml Q30M PRN IV Hypoglycemia 08/09/19 07:30 11/07/19 07:29 Diphenoxylate HCl/ Atropine (Lomotil) 2.5 mg QID PRN ORAL Diarrhea 09/24/19 08:45 10/24/19 08:44 Epoetin Andreas (Epoetin Andreas(ESRD on dialysis)) 10,000 unit WED-WED-WED SUBQ 10/09/19 21:00 01/07/20 20:59 10/09/19 21:12 Famotidine (Pepcid) 20 mg DAILY GT 08/30/19 09:00 11/28/19 08:59 10/10/19 08:04 Heparin Sodium (Porcine) (Heparin Sod 1000 units/ml 10ml) 2,000 unit ONCE PRN IV HD 10/10/19 06:00 10/10/19 23:59 Insulin Aspart (NovoLOG) Q6HR SUBQ 09/25/19 18:00 11/07/19 11:29 10/10/19 05:57 Lactobacillus Acidophilus (Culturelle) 1 tab EVERY 12 HOURS GT 10/03/19 21:00 12/13/19 17:59 10/10/19 08:04 Metoprolol Tartrate (Lopressor) 200 mg Q12HR GT 08/09/19 09:00 11/07/19 08:59 10/09/19 20:15 Minoxidil (Loniten) 5 mg DAILY GT 08/09/19 09:00 11/07/19 08:59 10/09/19 08:47 Sodium Chloride 1,000 ml @ 500 mls/hr Q2H PRN IVLG sbp<90 during hd 10/10/19 06:00 10/10/19 23:59 Zinc Oxide (Zinc Oxide) 1 applic EVERY 12 HOURS TOPIC 10/03/19 09:00 11/08/19 17:59 10/10/19 08:06 Farnaz Lyle MD Oct 10, 2019 10:48"
--- NOTE | 2019-10-10 11:33 | NUR ---
NURSE NOTES: Received a call from KARINA Morris. Dialysis will be here at 2-3pm.
[2019-10-10 12:00] VITALS: BP 122/56
--- NOTE | 2019-10-10 12:52 | NUR ---
CASE MANAGEMENT: REVIEW SI: ESRD on HD . CHRONIC LEUKOCYTOSIS T 97.7 HR 89 RR 14 BP 122/56 SAT 99% MECH VENT FIO2 24 GLUCOSE 119 WBC 15.4 H/H 8.9/29.6 NA 131 K 5.5 BUN 114 CR 5.4 IS: COLISTIN INH Q12HR EPOETIN SUBQ QMWF HEPARIN IV PRN HD NOVOLOG SUBQ Q6HR HD NEEDED GT FEEDING STEP DOWN UNIT STATUS DCP: PATIENT HAS BEEN ACCEPTED TO [facility]; WITH OUTPATIENT HD AT [facility] PENDING MAR[facility] FROM HEALTH PLAN PATIENT HAS BEEN ACCEPTED TO [facility] WITH IN-HOUSE HD; PENDING WBC WITHIN NORMAL LIMITS PATIENT HAS BEEN ACCEPTED TO [facility] WITH OUTPATIENT HD AT [facility] PENDING HEALTH PLAN MARISABEL
--- NOTE | 2019-10-10 12:57 | NUR ---
*-* INSURANCE *-* UPDATED CLINICALS AND REVIEWS HAVE BEEN FAXED TO: [facility] REF# [id number] RIC:HARPER P:[phone] F:[phone]
--- NOTE | 2019-10-10 14:02 | Surgery Progress Note ---
Surgery Progress Note Subjective Procedure Performed Right femoral temporary hemodialysis catheter removal Additional Comments HIDA negative lft's remain elevated leukocytosis anemia Objective Last 24 Hour Vital Signs Date Time Temp Pulse Resp B/P (MAP) Pulse Ox O2 Delivery O2 Flow Rate FiO2 10/10/19 13:00 84 14 24 10/10/19 12:00 90 10/10/19 12:00 97.7 91 17 122/56 (78) 100 10/10/19 12:00 24 10/10/19 12:00 Mechanical Ventilator 10/10/19 11:01 91 23 24 10/10/19 09:00 81 19 24 10/10/19 08:05 88 153/74 10/10/19 08:05 153/74 10/10/19 08:00 98.1 88 18 153/74 (100) 95 10/10/19 08:00 Mechanical Ventilator 10/10/19 08:00 24 10/10/19 07:42 86 10/10/19 06:53 86 19 24 10/10/19 05:02 88 17 24 10/10/19 04:00 97.8 90 17 113/80 (91) 97 10/10/19 04:00 Mechanical Ventilator 10/10/19 03:46 88 10/10/19 03:34 24 10/10/19 03:16 86 16 24 10/10/19 00:33 82 17 24 10/10/19 00:00 24 10/10/19 00:00 98.0 80 17 124/45 (71) 97 10/10/19 00:00 77 10/10/19 00:00 Mechanical Ventilator 10/09/19 23:09 79 16 24 10/09/19 20:55 80 13 24 10/09/19 20:15 96 142/61 10/09/19 20:00 Mechanical Ventilator 10/09/19 20:00 98.2 80 17 147/61 (89) 98 10/09/19 20:00 24 10/09/19 20:00 93 10/09/19 18:51 94 21 24 10/09/19 16:58 91 18 24 10/09/19 16:00 Mechanical Ventilator 10/09/19 16:00 92 10/09/19 16:00 98.1 92 17 130/63 (85) 97 10/09/19 16:00 24 8/31/20 15:01 93 12 24 I&O Intake and Output 10/09/19 10/10/19 19:00 07:00 Intake Total 450 ml 660 ml Output Total 400 ml 50 ml Balance 50 ml 610 ml Free Water 150 ml Tube Feeding 300 ml 660 ml Stool Total 400 ml 50 ml # Voids 1 # Bowel Movements 1 Dressing: other Wound: other Cardiovascular: RSR Respiratory: decreased breath sounds Abdomen: soft, non-tender, present bowel sounds Extremities: no tenderness, no cyanosis Laboratory Tests Test 10/09/19 15:14 10/09/19 17:55 10/09/19 23:34 10/10/19 03:20 POC Whole Blood Glucose 119 MG/DL (74-106) H 136 MG/DL (74-106) H 202 MG/DL (74-106) H White Blood Count 15.4 K/UL (4.8-10.8) H Red Blood Count 3.71 M/UL (4.70-6.10) L Hemoglobin 8.9 G/DL (14.2-18.0) L Hematocrit 29.6 % (42.0-52.0) L Mean Corpuscular Volume 80 FL (80-99) Mean Corpuscular Hemoglobin 24.0 PG (27.0-31.0) L Mean Corpuscular Hemoglobin Concent 30.1 G/DL (32.0-36.0) L Red Cell Distribution Width 16.7 % (11.6-14.8) H Platelet Count 549 K/UL (150-450) H Mean Platelet Volume 5.8 FL (6.5-10.1) L Neutrophils (%) (Auto) 64.2 % (45.0-75.0) Lymphocytes (%) (Auto) 17.3 % (20.0-45.0) L Monocytes (%) (Auto) 9.1 % (1.0-10.0) Eosinophils (%) (Auto) 8.6 % (0.0-3.0) H Basophils (%) (Auto) 0.7 % (0.0-2.0) Sodium Level 131 MMOL/L (136-145) L Potassium Level 5.5 MMOL/L (3.5-5.1) H Chloride Level 94 MMOL/L (98-107) L Carbon Dioxide Level 25 MMOL/L (21-32) Anion Gap 12 mmol/L (5-15) Blood Urea Nitrogen 114 mg/dL (7-18) H Creatinine 5.4 MG/DL (0.55-1.30) H Estimat Glomerular Filtration Rate 10.3 mL/min (>60) Glucose Level 177 MG/DL (74-106) H Calcium Level 8.9 MG/DL (8.5-10.1) Total Bilirubin 0.4 MG/DL (0.2-1.0) Aspartate Amino Transf (AST/SGOT) 96 U/L (15-37) H Alanine Aminotransferase (ALT/SGPT) 108 U/L (12-78) H Alkaline Phosphatase 289 U/L (46-116) H Total Protein 8.8 G/DL (6.4-8.2) H Albumin 1.8 G/DL (3.4-5.0) L Globulin 7.0 g/dL Albumin/Globulin Ratio 0.3 (1.0-2.7) L Test 10/10/19 05:52 10/10/19 11:17 POC Whole Blood Glucose Pending 135 MG/DL (74-106) H Plan Problems: (1) Anemia (2) Hyponatremia (3) Leukocytosis Assessment & Plan: Tracheostomy, left chest pacemaker are again demonstrated. There is bilateral interstitial and airspace disease and bilateral pleural fluid again demonstrated. This appears more severe than on the prior study. Bilateral interstitial and airspace infiltrates versus edema. Bilateral pleural effusions Leukocytosis, anemia, tachycardia, abnormal labs. Wound evaluated and likely etiology of patient's sepsis. Leukocytosis etiology work-up antibiotics per infectious disease Appreciate nephrology input transfuse with dialysis We will follow with recommendations thank you allowing participation's care plan HD access temp HD discussed with medical teams line okay HD as per renal persistent leukocytosis flow cyto noted improving trending down right fem line removed wbc fluctuating h/h stable lft's elevated There is a right pleural effusion Gallbladder demonstrates tiny wall adherent nonmobile echogenic foci, some possible mural calcifications, and comet tail artifact in the anterior wall. Patient unable to report sonographic Kent's sign. Common bile duct measures 4 mm in diameter. No intrahepatic biliary ductal dilatation. Liver demonstrates normal echogenicity, no focal abnormality. There is some surface nodularity. Portal vein and hepatic veins are patent. Pancreas is incompletely visualized due to overlying bowel gas, visualized portions are unremarkable. Spleen is unremarkable. Left kidney measures 8.7 cm in length. Right kidney measures 8.9 cm length. Both kidneys demonstrate increased echogenicity. There is no hydronephrosis. No focal abnormality . Abdominal aorta is partially obscured by bowel gas, visualized portions are non-aneurysmal . A gastrostomy is noted Impression: Tiny wall adherent nonmobile gallbladder echogenic foci, may reflect wall adherent calculi, small polyps, and/or pleural calcifications. Anterior wall comet tail artifact suggests foci of adenomyomatosis. Normal caliber common bile duct Possible hepatic surface nodularity, could indicate cirrhotic change Echogenic kidneys, consistent with medical renal disease. No hydronephrosis Right pleural effusion Gastrostomy Note nonvisualization of portions of the pancreas and abdominal aorta HIDA NEGATIVE trend labs (4) Ventilator dependent (5) Right lower lobe pneumonia (6) Hypokalemia (7) Hyperkalemia (8) Anasarca (9) Decubitus skin ulcer Assessment & Plan: pt presented on admission with generalized edemae.Skin assessed under tracheostomy and no areas of concerns noted. GT Insertion is marginally erythematous with small amt slough at stoma. Unstageable Pressure Injury R elbow. Base of wound is 100% yellow slough, Borders are erythematous. Wound oozing small amt haemopurulent exudate.Darker skin tone without elevation in skin temp or erythema periwound. Pt's penis and scrotum are grossly edematous and enlarged and weeping serous exudate from numerous sites both from penis and scrotum. Two small open wounds noted at base of at base of shaft of penis ,and contreras aspect of scrotum. Both wounds oozing large amt sanguineous and serosanguineous exudate. Multiple open wounds with Biofilm at base of each wounds noted to contreras/lateral,inferior and posterior aspects of scrotum. These wounds noted to be oozing moderate amts of serosanguineous exudate. Hypertrophic scar with scattered areas of hyperpigmentation noted to Sacrum. DTPI noted to L Buttocks (L)7cm x (W)9cm. Base of wound is purple and indurated.Darker skin tone without erythema, induration or fluctuance R and L ischial tuberosities. Both heels are boggy with non-blanchable erythema. Tx.Plan: Cleanse wound R elbow with Saline. Apply TheraHoney, Apply Moisture Barrier Paste periwound. Cover with Optifoam drsg.Change Daily and prn. Wash GT site with soap and water.Pat dry. Apply Zinc Oxide Paste to GT site Daily. Leave Open to Air. Apply Zinc Oxide Paste to entire Scrotum, Place ABD pads to R and L lateral, and posterior aspects of scrotum TWICE daily. Apply Cavilon Skin Barrier to malleoli and both Heels. Cover each site with Optifoam drsgs. Change every 7 days and prn. Reposition at least every 2hours or as tolerated. Off-load heels with Pillows. APM/BECCA Mattress overlay. (10) Malnutrition Assessment & Plan: DAILY ESTIMATED NEEDS: Needs based on Renal, critical care, wound/ 61kg 22-30 kcals/kg [id number] total kcals 1.25-2 g protein/kg 76-122 g total protein Fluid per MD, now on HD NUTRITION DIAGNOSIS: * Swallowing difficulty R/T respiratory failure, dysphagia as evidenced by trach/vent dep, PEG dep * Increased kcal/prot needs R/T wound healing as evidenced by admitted w/ multiple pressure injuries including full thickness wounds at junction of Shaft of penis, dorsal scrotum, R elbow, and DTPI @ L buttocks. CURRENT TF:Osmolite 1.2 @ 60ml/hr x 20 hrs + Garo BID ENTERAL NUTRITION RECOMMENDATIONS: Vital AF 1.2 @ 60ml/hr x 20 hrs to provide 1200ml, 1440kcal, 90g prot, 973ml free water * Rec 20 hr run time for GI rest. -> W/ improved GI status, rec Vital AF 1.2, an elemental and carb controlled TF -> monitor lytes and renal fxn closely, monitor need for renal TF -> TF @ goal will provide 1642mg K and 2025mg Phos -> HOB over 30 degrees/ water flush per MD -------- Trial of Osmolite 1.2 continue for now- Goal of 60ml/hr for 20 hrs (4 hrs bowel rest) to provide 1200ml, 1440 kcal, 67g pro, 984ml free H2O, -> Rec to add prosource 1 pack daily (11g pro) to better meet est pro needs. -> Monitor BG, K closely. Pt would require increased insulin coverage as TF at goal would provide 56g more carbs per day. ADDITIONAL RECOMMENDATIONS: * Per SNF: HT=63" FS=343 lbs (vs EMR wt of 166lbs) -> obtain re-calibrated bedscale wt, rec daily wt monitoring * Wound healing: con't Nephrovite + Garo BID/ Vit C dosing per Nephro * Monitor renal fxn and lytes closely w/ non-renal TF ->K low, phos wnl;updated mag level; rec increased insulin w/ BG labs * Daily wts w/ drop to 118-20 lbs, rec to recalibrate for accurate CBW * Consider DC Miralax if medically appropriate: +rectal tube (11) Uremia (12) CKD (chronic kidney disease) stage 5, GFR less than 15 ml/min (13) Colon distention Assessment & Plan: discussed with GI likely functional as having lots of loose bm rectal tube kub f/u s/p colonoscopy - findings reviewed with GI improved cont diet as tolerated Marked distention of the sigmoid colon. 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 No evidence of bowel wall thickening or pneumatosis 12 mm focus of contrast enhancement in the right pectineus muscle. While nonspecific in appearance, appearance raises concern for a possible pseudoaneurysm. Ill- defined thickening of the pectus medius muscle could indicate some intramuscular hemorrhage. The above findings were phoned to Dr. Urias at the time of interpretation Large bilateral pleural effusions Hazy pulmonary parenchymal opacities as well as dense consolidative opacities most likely represent pulmonary edema, but could represent pneumonia Evidence of anasarca elsewhere, with generalized edema of the subcutaneous fat Bladder wall thickening, raises concern for cystitis. Avalos catheter in place Colonic diverticulosis. No evidence of diverticulitis. Tracheostomy Pacemaker Gastrostomy Jonathan Urias Oct 10, 2019 14:02
--- NOTE | 2019-10-10 14:20 | Nephrology Progress Note ---
Assessment/Plan Plan MOF ESRD - HD TTS. Anemia of CKD -TUYET. Subjective Subjective Obtunded. Objective Objective Last 24 Hour Vital Signs Date Time Temp Pulse Resp B/P (MAP) Pulse Ox O2 Delivery O2 Flow Rate FiO2 10/10/19 13:00 84 14 24 10/10/19 12:00 90 10/10/19 12:00 97.7 91 17 122/56 (78) 100 10/10/19 12:00 24 10/10/19 12:00 Mechanical Ventilator 10/10/19 11:01 91 23 24 10/10/19 09:00 81 19 24 10/10/19 08:05 88 153/74 10/10/19 08:05 153/74 10/10/19 08:00 98.1 88 18 153/74 (100) 95 10/10/19 08:00 Mechanical Ventilator 10/10/19 08:00 24 10/10/19 07:42 86 10/10/19 06:53 86 19 24 10/10/19 05:02 88 17 24 10/10/19 04:00 97.8 90 17 113/80 (91) 97 10/10/19 04:00 Mechanical Ventilator 10/10/19 03:46 88 10/10/19 03:34 24 10/10/19 03:16 86 16 24 10/10/19 00:33 82 17 24 10/10/19 00:00 24 10/10/19 00:00 98.0 80 17 124/45 (71) 97 10/10/19 00:00 77 10/10/19 00:00 Mechanical Ventilator 10/09/19 23:09 79 16 24 10/09/19 20:55 80 13 24 10/09/19 20:15 96 142/61 10/09/19 20:00 Mechanical Ventilator 10/09/19 20:00 98.2 80 17 147/61 (89) 98 10/09/19 20:00 24 10/09/19 20:00 93 10/09/19 18:51 94 21 24 10/09/19 16:58 91 18 24 10/09/19 16:00 Mechanical Ventilator 10/09/19 16:00 92 10/09/19 16:00 98.1 92 17 130/63 (85) 97 10/09/19 16:00 24 10/09/19 15:01 93 12 24 Intake and Output 10/09/19 10/10/19 19:00 07:00 Intake Total 450 ml 660 ml Output Total 400 ml 50 ml Balance 50 ml 610 ml Free Water 150 ml Tube Feeding 300 ml 660 ml Stool Total 400 ml 50 ml # Voids 1 # Bowel Movements 1 Laboratory Tests 10/09/19 15:14: POC Whole Blood Glucose 119H 10/09/19 17:55: POC Whole Blood Glucose 136H 10/09/19 23:34: POC Whole Blood Glucose 202H 10/10/19 03:20: White Blood Count 15.4H, Red Blood Count 3.71L, Hemoglobin 8.9L, Hematocrit 29.6L, Mean Corpuscular Volume 80, Mean Corpuscular Hemoglobin 24.0L, Mean Corpuscular Hemoglobin Concent 30.1L, Red Cell Distribution Width 16.7H, Platelet Count 549H, Mean Platelet Volume 5.8L, Neutrophils (%) (Auto) 64.2, Lymphocytes (%) (Auto) 17.3L, Monocytes (%) (Auto) 9.1, Eosinophils (%) (Auto) 8.6H, Basophils (%) (Auto) 0.7, Sodium Level 131L, Potassium Level 5.5H, Chloride Level 94L, Carbon Dioxide Level 25, Anion Gap 12, Blood Urea Nitrogen 114H, Creatinine 5.4H, Estimat Glomerular Filtration Rate 10.3, Glucose Level 177H, Calcium Level 8.9, Total Bilirubin 0.4, Aspartate Amino Transf (AST/SGOT) 96H, Alanine Aminotransferase (ALT/SGPT) 108H, Alkaline Phosphatase 289H, Total Protein 8.8H, Albumin 1.8L, Globulin 7.0, Albumin/Globulin Ratio 0.3L 10/10/19 05:52: POC Whole Blood Glucose [Pending] 10/10/19 11:17: POC Whole Blood Glucose 135H Height (Feet): 5 Height (Inches): 10.00 Weight (Pounds): 123 Objective CV RR Trach clean Lungs CTA New Perma Cath RIJ. Abd SNT. BS + E No CCE Erica Pichardo MD Oct 10, 2019 14:20
--- NOTE | 2019-10-10 14:20 | NUR ---
NURSE NOTES: Pt Seen by Dr. Pichardo, informed about HD will be here by 2-3pm by KARINA silvestre. No new orders noted.
--- NOTE | 2019-10-10 15:15 | NUR ---
Dialysis was started by HD nurse.
--- NOTE | 2019-10-10 15:29 | NUR ---
NURSE NOTES: HD nurse called Dr. Arndt and clarify the order for 2 meq. K+ instead of 4 meq. K+ originally ordered by Dr. Arndt.
[2019-10-10 16:00] VITALS: BP 119/64
[2019-10-10 16:34] LABS: BASOPHILS % (AUTO) 1.6 % (0.0-2.0); EOSINOPHILS % (AUTO) 9.6 % (0.0-3.0); HEMATOCRIT 29.3 % (42.0-52.0); HEMOGLOBIN 8.8 G/DL (14.2-18.0); LYMPHOCYTES % (AUTO) 14.3 % (20.0-45.0); MEAN CORPUSCULAR VOLUME 81 FL (80-99); MONOCYTES % (AUTO) 6.9 % (1.0-10.0); NEUTROPHILS % (AUTO) 67.7 % (45.0-75.0); PLATELET COUNT 510 K/UL (150-450); RED BLOOD COUNT 3.63 M/UL (4.70-6.10); RED CELL DISTRIBUTION WIDTH 17.9 % (11.6-14.8); WHITE BLOOD COUNT 16.7 K/UL (4.8-10.8)
--- NOTE | 2019-10-10 16:34 | NUR ---
NURSE NOTES: Noted BP by HD nurse BP-79/64. Informed Dr. Pichardo. New order noted and carried out.
--- NOTE | 2019-10-10 16:41 | NUR ---
Rechecked BP by HD Nurse /34.Continue to monitor. pt
[2019-10-10 16:46] LABS: ANION GAP 11 mmol/L (5-15); BLOOD UREA NITROGEN 109 mg/dL (7-18); CALCIUM 9.4 MG/DL (8.5-10.1); CARBON DIOXIDE 27 MMOL/L (21-32); CHLORIDE 96 MMOL/L (98-107); CREATININE 5.4 MG/DL (0.55-1.30); POTASSIUM 5.1 MMOL/L (3.5-5.1); SODIUM 134 MMOL/L (136-145)
--- NOTE | 2019-10-10 17:04 | NUR ---
NURSE NOTES: Rechecked BP by HD nurse BP 80/28. Albumin 25% given as ordered.
--- NOTE | 2019-10-10 17:13 | NUR ---
Rechecked BP 90/40. Continue to monitor pt.
--- NOTE | 2019-10-10 18:40 | NUR ---
NURSE NOTES: Dialysis done by HD nurse. Output of 1.5L. BP checked 90/40. Continue to monitor.
--- NOTE | 2019-10-10 19:00 | NUR ---
NURSE HAND-OFF REPORT: Important Events on Shift: Dialysis done today. Hypotension during dialysis. Dr. Pichardo aware. Output 1.5L out. Patient Status: BP :90/40 , on closely monitoring Diet: Nepro @45ml/ hr x 20 hrs Pending Orders: Repeat BMP 10/10 Pending Results/Labs: BMP 10/10 Pending MD notification: none Latest Vital Signs: Temperature 97.5 , Pulse 83 , B/P 119 /64 , Respiratory Rate 13 , O2 SAT 100 , Mechanical Ventilator, O2 Flow Rate 15.0 . Vital Sign Comment: Continue to monitor BP EKG Rhythm: V-Paced Rhythm change?: N MD Notified?: N - MD Response: Latest Delacruz Fall Score: 70 Fall Risk: High Risk Safety Measures: Call light Within Reach, Bed Alarm Zone 1, Side Rails Side Rails x3, Bed position Low and Locked. Fall Precautions: Yellow Socks Report given to .Kolton CASTANEDA RN
--- NOTE | 2019-10-10 19:40 | NUR ---
NURSE NOTES: Report received from TAMICA Bills. Observed pt lying in the bed, obtunded. V paced on bus driver/monitor. Trach to vent, Portex 8, AC 12, TV 550, FIO2 24%, PEEP 5, tolerating well with current vent setting. GT intact, running Nepro at 45cc/hr. Rectal tube in placed. Noted HD done today, 1.5L output. IV on L H 20G, asymptomatic, TKO. R subclavian permacath, intact. Bed in the lowest position. Side rails up x3. Will continue to monitor.
[2019-10-10 20:00] VITALS: BP 98/42
[2019-10-10] MEDS: Dyna-Hex 2% Top Sol 2oz TOPIC SCH (20:09)
--- NOTE | 2019-10-10 20:54 | General Progress Note ---
Assessment/Plan Assessment/Plan: Assessment - abdominal distention, due to colonic dysmotility, - colonoscopy negative to hepatic flexure - diarrhea - presumed TF related - abnormal LFT - higher now, ? etiology --> HIDA negative - Anemia - leukocytosis - stool OB (+) - EGD --> gastritis - Renal failure - Anasarca - resp failure, trach - dysphagia, GT - encephalopathy, contracted - poor px Recommendations - continue TF - Off of Statin - Check CT abd and pelvis with GT and IV contrast - rectal tube - roll side to side as feasible (hard due to severe contractions) - Elevate HOB - f/u labs - PPI - abx - supportive care Subjective Allergies: Coded Allergies: No Known Allergies (Unverified , 06/10/19) Subjective above noted tolerating feeds liquid stool still with elevated LFT TF changed per RD rec WBC remains elevated Objective Last 24 Hour Vital Signs Date Time Temp Pulse Resp B/P (MAP) Pulse Ox O2 Delivery O2 Flow Rate FiO2 10/10/19 20:43 84 19 24 10/10/19 20:09 76 98/42 10/10/19 20:00 24 10/10/19 20:00 97.5 76 18 98/42 (60) 100 10/10/19 20:00 Mechanical Ventilator 10/10/19 18:57 83 13 24 10/10/19 17:17 83 18 24 10/10/19 16:00 24 10/10/19 16:00 Mechanical Ventilator 10/10/19 16:00 97.5 83 18 119/64 (82) 100 10/10/19 15:32 81 10/10/19 15:15 82 13 24 10/10/19 13:00 84 14 24 10/10/19 12:00 90 10/10/19 12:00 97.7 91 17 122/56 (78) 100 10/10/19 12:00 24 10/10/19 12:00 Mechanical Ventilator 10/10/19 11:01 91 23 24 10/10/19 09:00 81 19 24 10/10/19 08:05 88 153/74 10/10/19 08:05 153/74 10/10/19 08:00 98.1 88 18 153/74 (100) 95 10/10/19 08:00 Mechanical Ventilator 10/10/19 08:00 24 10/10/19 07:42 86 10/10/19 06:53 86 19 24 10/10/19 05:02 88 17 24 10/10/19 04:00 97.8 90 17 113/80 (91) 97 10/10/19 04:00 Mechanical Ventilator 10/10/19 03:46 88 10/10/19 03:34 24 10/10/19 03:16 86 16 24 10/10/19 00:33 82 17 24 10/10/19 00:00 24 10/10/19 00:00 98.0 80 17 124/45 (71) 97 10/10/19 00:00 77 10/10/19 00:00 Mechanical Ventilator 10/09/19 23:09 79 16 24 10/09/19 20:55 80 13 24 Intake and Output 10/09/19 10/10/19 19:00 07:00 Intake Total 450 ml 660 ml Output Total 400 ml 50 ml Balance 50 ml 610 ml Free Water 150 ml Tube Feeding 300 ml 660 ml Stool Total 400 ml 50 ml # Voids 1 # Bowel Movements 1 Laboratory Tests 10/09/19 23:34: POC Whole Blood Glucose 202H 10/10/19 03:20: White Blood Count 15.4H, Red Blood Count 3.71L, Hemoglobin 8.9L, Hematocrit 29.6L, Mean Corpuscular Volume 80, Mean Corpuscular Hemoglobin 24.0L, Mean Corpuscular Hemoglobin Concent 30.1L, Red Cell Distribution Width 16.7H, Platelet Count 549H, Mean Platelet Volume 5.8L, Neutrophils (%) (Auto) 64.2, Lymphocytes (%) (Auto) 17.3L, Monocytes (%) (Auto) 9.1, Eosinophils (%) (Auto) 8.6H, Basophils (%) (Auto) 0.7, Sodium Level 131L, Potassium Level 5.5H, Chloride Level 94L, Carbon Dioxide Level 25, Anion Gap 12, Blood Urea Nitrogen 114H, Creatinine 5.4H, Estimat Glomerular Filtration Rate 10.3, Glucose Level 177H, Calcium Level 8.9, Total Bilirubin 0.4, Aspartate Amino Transf (AST/SGOT) 96H, Alanine Aminotransferase (ALT/SGPT) 108H, Alkaline Phosphatase 289H, Total Protein 8.8H, Albumin 1.8L, Globulin 7.0, Albumin/Globulin Ratio 0.3L 10/10/19 05:52: POC Whole Blood Glucose [Pending] 10/10/19 11:17: POC Whole Blood Glucose 135H 10/10/19 16:20: White Blood Count 16.7H, Red Blood Count 3.63L, Hemoglobin 8.8L, Hematocrit 29.3L, Mean Corpuscular Volume 81, Mean Corpuscular Hemoglobin 24.2L, Mean Corpuscular Hemoglobin Concent 30.0L, Red Cell Distribution Width 17.9H, Platelet Count 510H, Mean Platelet Volume 6.1L, Neutrophils (%) (Auto) 67.7, Lymphocytes (%) (Auto) 14.3L, Monocytes (%) (Auto) 6.9, Eosinophils (%) (Auto) 9.6H, Basophils (%) (Auto) 1.6, Sodium Level 134L, Potassium Level 5.1, Chloride Level 96L, Carbon Dioxide Level 27, Anion Gap 11, Blood Urea Nitrogen 109H, Creatinine 5.4H, Estimat Glomerular Filtration Rate 10.3, Glucose Level 159H, Calcium Level 9.4 10/10/19 16:25: POC Whole Blood Glucose 133H Height (Feet): 5 Height (Inches): 10.00 Weight (Pounds): 123 Objective Debilitated AA man NCAT (+) trach coarse BS RR abd less distended, anasarca, (+) GT, (+) rectal tube ext contracted Ronny Mustafa MD Oct 10, 2019 20:54
[2019-10-10] MEDS ORDERED: Omnipaque-300 100ml vial INJ PRN (21:00)
[2019-10-11] VITALS: BP 106/54
--- NOTE | 2019-10-11 | NUR ---
NURSE NOTES: Pt NPO at this time per CT abd order following AM. Reposition done . Oral care given. No acute distress noted at this time. Will continue to monitor.
[2019-10-11 04:00] VITALS: BP 106/47
[2019-10-11 05:24] LABS: BASOPHILS % (AUTO) 0.8 % (0.0-2.0); EOSINOPHILS % (AUTO) 9.6 % (0.0-3.0); HEMATOCRIT 27.5 % (42.0-52.0); HEMOGLOBIN 8.3 G/DL (14.2-18.0); LYMPHOCYTES % (AUTO) 15.4 % (20.0-45.0); MEAN CORPUSCULAR VOLUME 80 FL (80-99); MONOCYTES % (AUTO) 6.3 % (1.0-10.0); NEUTROPHILS % (AUTO) 67.9 % (45.0-75.0); PLATELET COUNT 501 K/UL (150-450); RED BLOOD COUNT 3.46 M/UL (4.70-6.10); RED CELL DISTRIBUTION WIDTH 16.5 % (11.6-14.8); WHITE BLOOD COUNT 14.2 K/UL (4.8-10.8)
[2019-10-11] MEDS: NovoLOG Insulin Flexpen SUBQ SCH ×5 (05:39→23:23)
[2019-10-11 05:59] LABS: ALANINE AMINOTRANSFERASE 111 U/L (12-78); ALBUMIN 2.5 G/DL (3.4-5.0); ALBUMIN/GLOBULIN RATIO 0.4 (1.0-2.7); ALKALINE PHOSPHATASE 250 U/L (46-116); ANION GAP 11 mmol/L (5-15); ASPARTATE AMINO TRANSFERASE 115 U/L (15-37); BILIRUBIN,TOTAL 0.5 MG/DL (0.2-1.0); BLOOD UREA NITROGEN 44 mg/dL (7-18); CARBON DIOXIDE 25 MMOL/L (21-32); CHLORIDE 101 MMOL/L (98-107); CREATININE 2.9 MG/DL (0.55-1.30); POTASSIUM 4.3 MMOL/L (3.5-5.1); SODIUM 137 MMOL/L (136-145)
--- NOTE | 2019-10-11 06:57 | Hematology/Onc Progress Note ---
Assessment/Plan Assessment/Plan Assessment/recs # Anemia due to chronic disease/kidney disease as well, gi bleed + occult + noted --> was on iron in the past, now on hold --> has been started on Epogen sq --> as per renal care --> egd done and shows gastritis --> on ppi --> egd showed gastritis, colo recently done --> hgb 9-->8.7-->7.6-->9.2-->8.9-->9.2->9.3-->8.8->9.9-->9.2-->8.1-->8.7-->7.9- ->8.6-->8.9-->8.2->9-->9.3->8.9-->9.5-->10.6->9.2-->10->8.9-->8.3 --> spep ordered->wnl # Leukocytosis - with multiple infections, VRE UTI, flow is negative --> wbc trend 33-->28-->25->23->22->23->24->17.3-->17-->14->16-->15.6-->14-->14- >13->19->18->17->22->22->19->17-->18->20-->15-->14->16-->14-->17->18-->17->15 --> on abx, linezolid and zosyn--> zosyn-->gent-->off --> + blood cultures with coag neg staph likely contaminated --> as per id recs --> has ordered a flow cytometry (with pathology) --> does show increased nK cell activity --> JOURDAN 2 and bcr-abl labs ordered (these are send outs)->negative --> plt 585-->613-->649-->669->663-->529-->506 # Elevated ddimer on admission --> duplex lower legs neg for dvt # Respiratory failure --> per pulm, s/p trach --> COVID 19 test negative x 2 # Hyperlipidemia --> statin po # Dysphagia s/p gtube with nepro --> per gi # ESRD with r fem julito --> hd as per renal # Dvt ppx scds Appreciate consultation and matt Rn Subjective HEENT: Denies: no symptoms, eye pain, blurred vision, tearing, double vision, ear pain, ear discharge, nose pain, nose congestion, throat pain, throat swelling, mouth pain, mouth swelling, other Cardiovascular: Denies: no symptoms, chest pain, edema, irregular heart rate, lightheadedness, palpitations, syncope, other Respiratory: Denies: no symptoms, cough, shortness of breath, SOB with excertion, SOB at rest, sputum, wheezing, other Gastrointestinal/Abdominal: Denies: no symptoms, abdomen distended, abdominal pain, black stools, tarry stools, blood in stool, constipated, diarrhea, difficulty swallowing, nausea, poor appetite, poor fluid intake, rectal bleeding , vomiting, other Genitourinary: Denies: no symptoms, burning, discharge, frequency, flank pain, hematuria, incontinence, pain, urgency, other Neurologic/Psychiatric: Denies: no symptoms, anxiety, depressed, emotional problems, headache, numbness, paresthesia, pre-existing deficit, seizure, tingling, tremors, weakness, other Endocrine: Denies: no symptoms, excessive sweating, flushing, intolerance to cold, intolerance to heat, increased hunger, increased thirst, increased urine, unexplained weight gain, unexplained weight loss, other Allergies: Coded Allergies: No Known Allergies (Unverified , 06/10/19) Subjective 08/15 meds noted, no bleeding, hgb 8.8, wbc 28, path flow pending 08/16 flow pending dw pathologist, results pending, wbc 25, hgb 9 08/17 labs reviewed, meds reviewed, meds noted, no night sweats 08/19 remains obtunded, on vent/trach, no bleeding wbc 21.7 08/20 labs have been reviewed, no bleeding, wbc still elev, path reviewed 08/21 labs are noted, no bleeding, on vent, wbc better 08/22 labs noted, no bleeding, meds reviewed, wbc 24 hgb 7.6 08/23 vent, off abx, c diff negative, h/h stable 08/24 labs reviewed, on abx, wbc 17, hgb 8.9, no hemolysis 08/26 reviewed flow and is negative for leukemia, matt rn 08/27 meds reviewed, no night sweats, matt rn, no major bleeding 08/28 meds reivewed, labs noted 08/29 wbc is stable, approx 15, hgb 8.8, no hemolysis 08/30 labs are noted, is for colo today, hgb 9.9 08/31 right fem julito in place, unchanged, hgb 9.2, gi aware 09/01 labs noted, hgb 8.8, plt >600, no bleeding 09/02 labs noted, no bleeding, with elev wbc still, no new changes 09/03 meds are noted, no bleeding, labs reviewed hgb 8.6 09/04 no major events, hd as per renal, abx, no bleeding hgb low 09/05 labs are noted, no bleeding, meds have been reviewed 09/06 no new labs no hemolysis, cbc is noted, no bleeding 09/07 meds reviewed, no bleeding, matt rn, permacath functioning well 09/09 meds reviewed, wbc still elevated, as per id recs, cbc noted 09/10 is obtunded, with gutbe in place, labs reviewed 09/11 obtunded, as per id, observe now off abx, labs noted, wbc 19 09/12 cbc is pending, remains on epogen, also off abx 09/13 labs reviewed, no bleeding, elev wbc, no night sweats 09/14 meds noted, no bleeding, wbc 19, hgb 9.5, no night sweats 09/21 obtunded, remains on vent, labs noted, no bleeding, hgb 8.9 09/22 obtunded, labs noted, no bleeding, on vent, unchanged 09/23 unchanges, wbc remains elevated 20k, on abx, on vent 09/24 labs have been reviewed, no bleeding, wbc 15, may need abx 09/25 formula gtube changed, labs noted, remains obtunded, hgb 9.3 09/26 labs have been reviewed, no bleeding, matt rn, no night sweats 09/27 meds reviewed, no bleeding, wbc 14, on abx, remains obtunded 09/28 remains obtunded, no bleeding, wbc better, hgb 8.9, no hemolysis, plt 506 09/30 on colisitn, wbc elevated, cefepime added per id, hgb stable 10/01 labs reviewed, no bleeding, matt rn, no major events noted, wbc 14, hgb 10.6 10/02 labs have been noted, hgb 9.2, wbc 17, on abx, mtat rn 10/03 continue on tube feeds, no bleeding, on vent, wbc remains elevated 10/04 remains ibtunded, is on a mechanical ventilator with tube feeds noted 10/05 labs are noted, hgb 8.6, wbc remains elevated, have ordered for spep 10/07 obtunded on vent, with gtube feeds, labs reviewed, matt rn 10/08 labs are noted, on vent/trach, hgb 10.2, remains obtunded 10/09 labns noted, wbc 15, hgb 8.9, remains altered, on tfs 10/10 labs noted, holding tube feeds, matt rn, hg stable 8.3 currently Objective Objective Current Medications Medications (Trade) Dose Ordered Sig/Leonel Route PRN Reason Start Time Stop Time Status Last Admin Dose Admin Acetaminophen (Tylenol) 650 mg Q4H PRN GT Mild Pain (Pain Scale 1-3) 09/21/19 12:45 10/21/19 12:44 10/07/19 23:28 Barium Sulfate (Readi-Cat 2) 450 ml NOW PRN ORAL Radiology Procedure 10/10/19 21:00 10/12/19 20:54 Chlorhexidine Gluconate (Felipa-Hex 2%) 1 applic DAILY@1999 TOPIC 09/12/19 20:00 12/11/19 19:59 10/10/19 20:09 Clonidine HCl (Catapres Tab) 0.1 mg Q4H PRN GT For High Blood Pressure 09/09/19 12:30 12/08/19 05:29 09/15/19 04:10 Dextrose (Dextrose 50%) 25 ml Q30M PRN IV Hypoglycemia 08/09/19 07:30 11/07/19 07:29 Dextrose (Dextrose 50%) 50 ml Q30M PRN IV Hypoglycemia 08/09/19 07:30 11/07/19 07:29 Diphenoxylate HCl/ Atropine (Lomotil) 2.5 mg QID PRN ORAL Diarrhea 09/24/19 08:45 10/24/19 08:44 Epoetin Andreas (Epoetin Andreas(ESRD on dialysis)) 10,000 unit WED-WED-WED SUBQ 10/09/19 21:00 01/07/20 20:59 10/09/19 21:12 Famotidine (Pepcid) 20 mg DAILY GT 08/30/19 09:00 11/28/19 08:59 10/10/19 08:04 Insulin Aspart (NovoLOG) Q6HR SUBQ 09/25/19 18:00 11/07/19 11:29 10/10/19 05:57 Iohexol (OMNIPAQUE-300 100ml) 100 ml NOW PRN INJ Radiology Procedure 10/10/19 21:00 10/12/19 20:54 Lactobacillus Acidophilus (Culturelle) 1 tab EVERY 12 HOURS GT 10/03/19 21:00 12/13/19 17:59 10/10/19 20:09 Metoprolol Tartrate (Lopressor) 200 mg Q12HR GT 08/09/19 09:00 11/07/19 08:59 10/09/19 20:15 Minoxidil (Loniten) 5 mg DAILY GT 08/09/19 09:00 11/07/19 08:59 10/09/19 08:47 Zinc Oxide (Zinc Oxide) 1 applic EVERY 12 HOURS TOPIC 10/03/19 09:00 11/08/19 17:59 10/10/19 20:09 Last 24 Hour Vital Signs Date Time Temp Pulse Resp B/P (MAP) Pulse Ox O2 Delivery O2 Flow Rate FiO2 10/11/19 04:36 86 16 24 10/11/19 04:00 Mechanical Ventilator 10/11/19 04:00 24 10/11/19 04:00 97.7 81 19 106/47 (66) 100 10/11/19 04:00 77 10/11/19 03:18 83 14 24 10/11/19 01:15 76 14 24 10/11/19 00:00 24 10/11/19 00:00 Mechanical Ventilator 10/11/19 00:00 98.0 74 19 106/54 (71) 100 10/10/19 23:46 77 9/1/20 23:10 75 12 24 10/10/19 20:43 84 19 24 10/10/19 20:09 76 98/42 10/10/19 20:00 24 10/10/19 20:00 97.5 76 18 98/42 (60) 100 10/10/19 20:00 Mechanical Ventilator 10/10/19 20:00 77 10/10/19 18:57 83 13 24 10/10/19 17:17 83 18 24 10/10/19 16:00 24 10/10/19 16:00 Mechanical Ventilator 10/10/19 16:00 97.5 83 18 119/64 (82) 100 10/10/19 15:32 81 10/10/19 15:15 82 13 24 10/10/19 13:00 84 14 24 10/10/19 12:00 90 10/10/19 12:00 97.7 91 17 122/56 (78) 100 10/10/19 12:00 24 10/10/19 12:00 Mechanical Ventilator 10/10/19 11:01 91 23 24 10/10/19 09:00 81 19 24 10/10/19 08:05 88 153/74 10/10/19 08:05 153/74 10/10/19 08:00 98.1 88 18 153/74 (100) 95 10/10/19 08:00 Mechanical Ventilator 10/10/19 08:00 24 10/10/19 07:42 86 10/10/19 06:53 86 19 24 10/10/19 05:02 88 17 24 10/10/19 04:00 97.8 90 17 113/80 (91) 97 10/10/19 04:00 Mechanical Ventilator 10/10/19 03:46 88 10/10/19 03:34 24 10/10/19 03:16 86 16 24 10/10/19 00:33 82 17 24 10/10/19 00:00 24 10/10/19 00:00 98.0 80 17 124/45 (71) 97 10/10/19 00:00 77 10/10/19 00:00 Mechanical Ventilator 10/09/19 23:09 79 16 24 10/09/19 20:55 80 13 24 10/09/19 20:15 96 142/61 10/09/19 20:00 Mechanical Ventilator 10/09/19 20:00 98.2 80 17 147/61 (89) 98 10/09/19 20:00 24 10/09/19 20:00 93 10/09/19 18:51 94 21 24 10/09/19 16:58 91 18 24 10/09/19 16:00 Mechanical Ventilator 10/09/19 16:00 92 10/09/19 16:00 98.1 92 17 130/63 (85) 97 10/09/19 16:00 24 10/09/19 15:01 93 12 24 10/09/19 12:40 92 16 24 10/09/19 12:00 97.7 89 14 122/56 (78) 99 10/09/19 12:00 24 10/09/19 12:00 Mechanical Ventilator 10/09/19 11:33 91 10/09/19 11:03 90 20 24 10/09/19 09:27 93 19 24 10/09/19 08:47 91 118/46 10/09/19 08:47 118/46 10/09/19 08:00 Mechanical Ventilator 10/09/19 08:00 98.1 93 16 123/53 (76) 100 10/09/19 08:00 92 10/09/19 08:00 24 Intake and Output 10/10/19 10/11/19 19:00 07:00 Intake Total 305 ml 180 ml Output Total 100 ml 50 ml Balance 205 ml 130 ml Free Water 50 ml 60 ml Tube Feeding 255 ml 120 ml Stool Total 100 ml 50 ml Labs Test 10/08/19 23:29 10/09/19 05:08 10/09/19 11:46 10/09/19 15:14 POC Whole Blood Glucose 233 MG/DL (74-106) 120 MG/DL (74-106) 119 MG/DL (74-106) Test 10/09/19 17:55 10/09/19 23:34 10/10/19 03:20 10/10/19 05:52 POC Whole Blood Glucose 136 MG/DL (74-106) 202 MG/DL (74-106) White Blood Count 15.4 K/UL (4.8-10.8) Red Blood Count 3.71 M/UL (4.70-6.10) Hemoglobin 8.9 G/DL (14.2-18.0) Hematocrit 29.6 % (42.0-52.0) Mean Corpuscular Volume 80 FL (80-99) Mean Corpuscular Hemoglobin 24.0 PG (27.0-31.0) Mean Corpuscular Hemoglobin Concent 30.1 G/DL (32.0-36.0) Red Cell Distribution Width 16.7 % (11.6-14.8) Platelet Count 549 K/UL (150-450) Mean Platelet Volume 5.8 FL (6.5-10.1) Neutrophils (%) (Auto) 64.2 % (45.0-75.0) Lymphocytes (%) (Auto) 17.3 % (20.0-45.0) Monocytes (%) (Auto) 9.1 % (1.0-10.0) Eosinophils (%) (Auto) 8.6 % (0.0-3.0) Basophils (%) (Auto) 0.7 % (0.0-2.0) Sodium Level 131 MMOL/L (136-145) Potassium Level 5.5 MMOL/L (3.5-5.1) Chloride Level 94 MMOL/L (98-107) Carbon Dioxide Level 25 MMOL/L (21-32) Anion Gap 12 mmol/L (5-15) Blood Urea Nitrogen 114 mg/dL (7-18) Creatinine 5.4 MG/DL (0.55-1.30) Estimat Glomerular Filtration Rate 10.3 mL/min (>60) Glucose Level 177 MG/DL (74-106) Calcium Level 8.9 MG/DL (8.5-10.1) Total Bilirubin 0.4 MG/DL (0.2-1.0) Aspartate Amino Transf (AST/SGOT) 96 U/L (15-37) Alanine Aminotransferase (ALT/SGPT) 108 U/L (12-78) Alkaline Phosphatase 289 U/L (46-116) Total Protein 8.8 G/DL (6.4-8.2) Albumin 1.8 G/DL (3.4-5.0) Globulin 7.0 g/dL Albumin/Globulin Ratio 0.3 (1.0-2.7) Test 10/10/19 11:17 10/10/19 16:20 10/10/19 16:25 10/10/19 23:54 POC Whole Blood Glucose 135 MG/DL (74-106) 133 MG/DL (74-106) 136 MG/DL (74-106) White Blood Count 16.7 K/UL (4.8-10.8) Red Blood Count 3.63 M/UL (4.70-6.10) Hemoglobin 8.8 G/DL (14.2-18.0) Hematocrit 29.3 % (42.0-52.0) Mean Corpuscular Volume 81 FL (80-99) Mean Corpuscular Hemoglobin 24.2 PG (27.0-31.0) Mean Corpuscular Hemoglobin Concent 30.0 G/DL (32.0-36.0) Red Cell Distribution Width 17.9 % (11.6-14.8) Platelet Count 510 K/UL (150-450) Mean Platelet Volume 6.1 FL (6.5-10.1) Neutrophils (%) (Auto) 67.7 % (45.0-75.0) Lymphocytes (%) (Auto) 14.3 % (20.0-45.0) Monocytes (%) (Auto) 6.9 % (1.0-10.0) Eosinophils (%) (Auto) 9.6 % (0.0-3.0) Basophils (%) (Auto) 1.6 % (0.0-2.0) Sodium Level 134 MMOL/L (136-145) Potassium Level 5.1 MMOL/L (3.5-5.1) Chloride Level 96 MMOL/L (98-107) Carbon Dioxide Level 27 MMOL/L (21-32) Anion Gap 11 mmol/L (5-15) Blood Urea Nitrogen 109 mg/dL (7-18) Creatinine 5.4 MG/DL (0.55-1.30) Estimat Glomerular Filtration Rate 10.3 mL/min (>60) Glucose Level 159 MG/DL (74-106) Calcium Level 9.4 MG/DL (8.5-10.1) Test 10/11/19 02:45 10/11/19 05:34 White Blood Count 14.2 K/UL (4.8-10.8) Red Blood Count 3.46 M/UL (4.70-6.10) Hemoglobin 8.3 G/DL (14.2-18.0) Hematocrit 27.5 % (42.0-52.0) Mean Corpuscular Volume 80 FL (80-99) Mean Corpuscular Hemoglobin 24.1 PG (27.0-31.0) Mean Corpuscular Hemoglobin Concent 30.3 G/DL (32.0-36.0) Red Cell Distribution Width 16.5 % (11.6-14.8) Platelet Count 501 K/UL (150-450) Mean Platelet Volume 5.9 FL (6.5-10.1) Neutrophils (%) (Auto) 67.9 % (45.0-75.0) Lymphocytes (%) (Auto) 15.4 % (20.0-45.0) Monocytes (%) (Auto) 6.3 % (1.0-10.0) Eosinophils (%) (Auto) 9.6 % (0.0-3.0) Basophils (%) (Auto) 0.8 % (0.0-2.0) Sodium Level 137 MMOL/L (136-145) Potassium Level 4.3 MMOL/L (3.5-5.1) Chloride Level 101 MMOL/L (98-107) Carbon Dioxide Level 25 MMOL/L (21-32) Anion Gap 11 mmol/L (5-15) Blood Urea Nitrogen 44 mg/dL (7-18) Creatinine 2.9 MG/DL (0.55-1.30) Estimat Glomerular Filtration Rate 21.2 mL/min (>60) Glucose Level 118 MG/DL (74-106) Calcium Level 9.0 MG/DL (8.5-10.1) Total Bilirubin 0.5 MG/DL (0.2-1.0) Aspartate Amino Transf (AST/SGOT) 115 U/L (15-37) Alanine Aminotransferase (ALT/SGPT) 111 U/L (12-78) Alkaline Phosphatase 250 U/L (46-116) Total Protein 8.2 G/DL (6.4-8.2) Albumin 2.5 G/DL (3.4-5.0) Globulin 5.7 g/dL Albumin/Globulin Ratio 0.4 (1.0-2.7) POC Whole Blood Glucose 119 MG/DL (74-106) Height (Feet): 5 Height (Inches): 10.00 Weight (Pounds): 123 Objective Physical Exam General Appearance: nad, Chronically Ill Head: normocephalic Eyes: right eye PERRL - Will not open left eye ENT: moist mucus membranes Neck: other - submandibular mass R, fairly rigid with resistance to rotation to L, tracheotomy Respiratory: decreased breath sounds, crackles, other - pacemaker, vent+ Cardiovascular: regular rate, rhythm, edema - anasarca Gastrointestinal: non tender, distended, other - G tube Genitourinary: other Musculoskeletal: other - Contractures all extremities Neurologic: sensory intact, motor weakness, responsive Psychiatric: other Skin: Decubitus/Ulcer - Stage III right elbow, stage III left elbow, stage II sacrum, stage III scrotum, warm/dry Fitz Campos MD Oct 11, 2019 06:57
--- NOTE | 2019-10-11 07:24 | NUR ---
NURSE HAND-OFF REPORT: Important Events on Shift: NPO since midnight. at the bedside 0700 Patient Status: stable Diet: GTube, Nepro at 45cc/hr. Pending Orders: CT ABD Pending Results/Labs:n/a Pending MD notification:n/a Latest Vital Signs: Temperature 97.7 , Pulse 86 , B/P 106 /47 , Respiratory Rate 16 , O2 SAT 100 , Mechanical Ventilator, O2 Flow Rate 15.0 . Vital Sign Comment: EKG Rhythm: V-Paced Rhythm change?: N MD Notified?: N - MD Response: Latest Delacruz Fall Score: 70 Fall Risk: High Risk Safety Measures: Call light Within Reach, Bed Alarm Zone 1, Side Rails Side Rails x3, Bed position Low and Locked. Fall Precautions: Yellow Socks Report given to TAMICA Rueda.
--- NOTE | 2019-10-11 07:25 | NUR ---
NURSE NOTES: Received report from TAMICA HENDRIX. Pt is sleeping in bed in semi-rivera's position. Attached to vent with settings of AC 12, TV 550 Fi02- 24% Peep of 5.0. O2 sat 100%.No signs of respiratory distress. No pain noted at this time. Pt is attached to rectal tube patent and draining. IV site still patent and intact. Continue to plan of care.
[2019-10-11 08:00] VITALS: BP 130/50
[2019-10-11] MEDS: Lactobacillus-GG tablet GT SCH ×2 (08:08→20:27)
[2019-10-11] MEDS: Zinc Oxide Oint 2oz TOPIC SCH ×2 (08:09→20:29)
[2019-10-11] MEDS: Metoprolol Tartrate 100mg tab GT SCH ×2 (08:09→20:27)
[2019-10-11] MEDS: Minoxidil 2.5mg tab GT SCH (08:09)
--- NOTE | 2019-10-11 09:13 | General Progress Note ---
Assessment/Plan Assessment/Plan: IMPRESSION: 1. anemia. 2. fevers improved 3. Leukocytosis. 4. hypotension 5. Acute on chronic renal failure. 6. Hyponatremia. 7. Severe protein-calorie malnutrition. 8. Significantly elevated C-reactive protein concerning for infectious etiology. 9. Tracheostomy, G-tube. 10. Ventilator dependence. 11. anasarca 12. Hematuria 13. V pacing 14. hyponatremia 15. transaminitis, HIDA negative PLAN chronic care; unable to place care noted may need CT on vent/ no wean monitor labs and optimize ID follow up dialysis ongoing prognosis poor for recovery impression, plan, and exam edited and reviewed in detail care discussed with RN Subjective Allergies: Coded Allergies: No Known Allergies (Unverified , 06/10/19) Subjective remains ill on vent/ no change on HD vitals noted Objective Last 24 Hour Vital Signs Date Time Temp Pulse Resp B/P (MAP) Pulse Ox O2 Delivery O2 Flow Rate FiO2 10/11/19 08:09 80 130/50 10/11/19 08:09 130/50 10/11/19 08:00 24 10/11/19 08:00 97.9 73 14 130/50 (76) 100 10/11/19 08:00 Mechanical Ventilator 10/11/19 04:36 86 16 24 10/11/19 04:00 Mechanical Ventilator 10/11/19 04:00 24 10/11/19 04:00 97.7 81 19 106/47 (66) 100 10/11/19 04:00 77 10/11/19 03:18 83 14 24 10/11/19 01:15 76 14 24 10/11/19 00:00 24 10/11/19 00:00 Mechanical Ventilator 10/11/19 00:00 98.0 74 19 106/54 (71) 100 10/10/19 23:46 77 10/10/19 23:10 75 12 24 10/10/19 20:43 84 19 24 10/10/19 20:09 76 98/42 10/10/19 20:00 24 10/10/19 20:00 97.5 76 18 98/42 (60) 100 10/10/19 20:00 Mechanical Ventilator 10/10/19 20:00 77 10/10/19 18:57 83 13 24 10/10/19 17:17 83 18 24 10/10/19 16:00 24 10/10/19 16:00 Mechanical Ventilator 10/10/19 16:00 97.5 83 18 119/64 (82) 100 10/10/19 15:32 81 10/10/19 15:15 82 13 24 10/10/19 13:00 84 14 24 10/10/19 12:00 90 10/10/19 12:00 97.7 91 17 122/56 (78) 100 10/10/19 12:00 24 10/10/19 12:00 Mechanical Ventilator 10/10/19 11:01 91 23 24 Intake and Output 10/10/19 10/11/19 19:00 07:00 Intake Total 305 ml 180 ml Output Total 100 ml 50 ml Balance 205 ml 130 ml Free Water 50 ml 60 ml Tube Feeding 255 ml 120 ml Stool Total 100 ml 50 ml Laboratory Tests 10/10/19 11:17: POC Whole Blood Glucose 135H 10/10/19 16:20: White Blood Count 16.7H, Red Blood Count 3.63L, Hemoglobin 8.8L, Hematocrit 29.3L, Mean Corpuscular Volume 81, Mean Corpuscular Hemoglobin 24.2L, Mean Corpuscular Hemoglobin Concent 30.0L, Red Cell Distribution Width 17.9H, Platelet Count 510H, Mean Platelet Volume 6.1L, Neutrophils (%) (Auto) 67.7, Lymphocytes (%) (Auto) 14.3L, Monocytes (%) (Auto) 6.9, Eosinophils (%) (Auto) 9.6H, Basophils (%) (Auto) 1.6, Sodium Level 134L, Potassium Level 5.1, Chloride Level 96L, Carbon Dioxide Level 27, Anion Gap 11, Blood Urea Nitrogen 109H, Creatinine 5.4H, Estimat Glomerular Filtration Rate 10.3, Glucose Level 159H, Calcium Level 9.4 10/10/19 16:25: POC Whole Blood Glucose 133H 10/10/19 23:54: POC Whole Blood Glucose 136H 10/11/19 02:45: White Blood Count 14.2H, Red Blood Count 3.46L, Hemoglobin 8.3L, Hematocrit 27.5L, Mean Corpuscular Volume 80, Mean Corpuscular Hemoglobin 24.1L, Mean Corpuscular Hemoglobin Concent 30.3L, Red Cell Distribution Width 16.5H, Platelet Count 501H, Mean Platelet Volume 5.9L, Neutrophils (%) (Auto) 67.9, Lymphocytes (%) (Auto) 15.4L, Monocytes (%) (Auto) 6.3, Eosinophils (%) (Auto) 9.6H, Basophils (%) (Auto) 0.8, Sodium Level 137, Potassium Level 4.3, Chloride Level 101, Carbon Dioxide Level 25, Anion Gap 11, Blood Urea Nitrogen 44H, Creatinine 2.9H, Estimat Glomerular Filtration Rate 21.2, Glucose Level 118H, Calcium Level 9.0, Total Bilirubin 0.5, Aspartate Amino Transf (AST/SGOT) 115H, Alanine Aminotransferase (ALT/SGPT) 111H, Alkaline Phosphatase 250H, Total Protein 8.2, Albumin 2.5L, Globulin 5.7, Albumin/Globulin Ratio 0.4L 10/11/19 05:34: POC Whole Blood Glucose 119H Height (Feet): 5 Height (Inches): 10.00 Weight (Pounds): 123 Objective GENERAL: Ill-appearing male, chronically debilitated. HEENT: Tracheostomy in midline. Questionable fullness in the submandibular region. LUNGS: Coarse breath sounds. reduced breath sounds CARDIAC: S1, S2. Regular rate and rhythm. ABDOMEN: Soft. G-tube. EXTREMITIES: With noted edema. NEUROLOGICAL: Poorly responsive, weak diffusely. Kain Ramirez MD Oct 11, 2019 09:13
--- NOTE | 2019-10-11 09:30 | NUR ---
NURSE NOTES: Barium swallow given via GT slowly for prep for CT of abdomen as protocol. Pt is tolerating well. Reposition pt and kept pt comfortable.
[2019-10-11] MEDS ORDERED: Tubing IV Secondary IV ONE (09:55)
[2019-10-11] MEDS ORDERED: NS 275ml ONE (09:55)
--- NOTE | 2019-10-11 10:42 | Infectious Diseases Prog Note ---
"Assessment/Plan Assessment/Plan antibiotics : none A 1. acenitobacter | proteus pneumonia s/p rx 2. respiratory failure 3. leucocytosis 4. COVID 19 test negative x 2 5. renal failure on HD P 1. continue off antibiotics 2. will follow up cultures Subjective ROS Limited/Unobtainable: Yes Allergies: Coded Allergies: No Known Allergies (Unverified , 06/10/19) Objective Last 24 Hour Vital Signs Date Time Temp Pulse Resp B/P (MAP) Pulse Ox O2 Delivery O2 Flow Rate FiO2 10/11/19 08:09 80 130/50 10/11/19 08:09 130/50 10/11/19 08:00 24 10/11/19 08:00 97.9 73 14 130/50 (76) 100 10/11/19 08:00 Mechanical Ventilator 10/11/19 04:36 86 16 24 10/11/19 04:00 Mechanical Ventilator 10/11/19 04:00 24 10/11/19 04:00 97.7 81 19 106/47 (66) 100 10/11/19 04:00 77 10/11/19 03:18 83 14 24 10/11/19 01:15 76 14 24 10/11/19 00:00 24 10/11/19 00:00 Mechanical Ventilator 10/11/19 00:00 98.0 74 19 106/54 (71) 100 10/10/19 23:46 77 10/10/19 23:10 75 12 24 10/10/19 20:43 84 19 24 10/10/19 20:09 76 98/42 10/10/19 20:00 24 10/10/19 20:00 97.5 76 18 98/42 (60) 100 10/10/19 20:00 Mechanical Ventilator 10/10/19 20:00 77 10/10/19 18:57 83 13 24 10/10/19 17:17 83 18 24 10/10/19 16:00 24 10/10/19 16:00 Mechanical Ventilator 10/10/19 16:00 97.5 83 18 119/64 (82) 100 10/10/19 15:32 81 10/10/19 15:15 82 13 24 10/10/19 13:00 84 14 24 10/10/19 12:00 90 10/10/19 12:00 97.7 91 17 122/56 (78) 100 10/10/19 12:00 24 10/10/19 12:00 Mechanical Ventilator 10/10/19 11:01 91 23 24 Height (Feet): 5 Height (Inches): 10.00 Weight (Pounds): 123 HEENT: status post trach Respiratory/Chest: lungs clear Cardiovascular: normal rate, regular rhythm, no gallop/murmur Abdomen: soft, non tender, other - GT Extremities: no edema, other - right subclavian catheter Laboratory Tests Test 10/10/19 11:17 10/10/19 16:20 10/10/19 16:25 10/10/19 23:54 POC Whole Blood Glucose 135 MG/DL (74-106) H 133 MG/DL (74-106) H 136 MG/DL (74-106) H White Blood Count 16.7 K/UL (4.8-10.8) H Red Blood Count 3.63 M/UL (4.70-6.10) L Hemoglobin 8.8 G/DL (14.2-18.0) L Hematocrit 29.3 % (42.0-52.0) L Mean Corpuscular Volume 81 FL (80-99) Mean Corpuscular Hemoglobin 24.2 PG (27.0-31.0) L Mean Corpuscular Hemoglobin Concent 30.0 G/DL (32.0-36.0) L Red Cell Distribution Width 17.9 % (11.6-14.8) H Platelet Count 510 K/UL (150-450) H Mean Platelet Volume 6.1 FL (6.5-10.1) L Neutrophils (%) (Auto) 67.7 % (45.0-75.0) Lymphocytes (%) (Auto) 14.3 % (20.0-45.0) L Monocytes (%) (Auto) 6.9 % (1.0-10.0) Eosinophils (%) (Auto) 9.6 % (0.0-3.0) H Basophils (%) (Auto) 1.6 % (0.0-2.0) Sodium Level 134 MMOL/L (136-145) L Potassium Level 5.1 MMOL/L (3.5-5.1) Chloride Level 96 MMOL/L (98-107) L Carbon Dioxide Level 27 MMOL/L (21-32) Anion Gap 11 mmol/L (5-15) Blood Urea Nitrogen 109 mg/dL (7-18) H Creatinine 5.4 MG/DL (0.55-1.30) H Estimat Glomerular Filtration Rate 10.3 mL/min (>60) Glucose Level 159 MG/DL (74-106) H Calcium Level 9.4 MG/DL (8.5-10.1) Test 10/11/19 02:45 10/11/19 05:34 White Blood Count 14.2 K/UL (4.8-10.8) H Red Blood Count 3.46 M/UL (4.70-6.10) L Hemoglobin 8.3 G/DL (14.2-18.0) L Hematocrit 27.5 % (42.0-52.0) L Mean Corpuscular Volume 80 FL (80-99) Mean Corpuscular Hemoglobin 24.1 PG (27.0-31.0) L Mean Corpuscular Hemoglobin Concent 30.3 G/DL (32.0-36.0) L Red Cell Distribution Width 16.5 % (11.6-14.8) H Platelet Count 501 K/UL (150-450) H Mean Platelet Volume 5.9 FL (6.5-10.1) L Neutrophils (%) (Auto) 67.9 % (45.0-75.0) Lymphocytes (%) (Auto) 15.4 % (20.0-45.0) L Monocytes (%) (Auto) 6.3 % (1.0-10.0) Eosinophils (%) (Auto) 9.6 % (0.0-3.0) H Basophils (%) (Auto) 0.8 % (0.0-2.0) Sodium Level 137 MMOL/L (136-145) Potassium Level 4.3 MMOL/L (3.5-5.1) Chloride Level 101 MMOL/L (98-107) Carbon Dioxide Level 25 MMOL/L (21-32) Anion Gap 11 mmol/L (5-15) Blood Urea Nitrogen 44 mg/dL (7-18) H Creatinine 2.9 MG/DL (0.55-1.30) H Estimat Glomerular Filtration Rate 21.2 mL/min (>60) Glucose Level 118 MG/DL (74-106) H Calcium Level 9.0 MG/DL (8.5-10.1) Total Bilirubin 0.5 MG/DL (0.2-1.0) Aspartate Amino Transf (AST/SGOT) 115 U/L (15-37) H Alanine Aminotransferase (ALT/SGPT) 111 U/L (12-78) H Alkaline Phosphatase 250 U/L (46-116) H Total Protein 8.2 G/DL (6.4-8.2) Albumin 2.5 G/DL (3.4-5.0) L Globulin 5.7 g/dL Albumin/Globulin Ratio 0.4 (1.0-2.7) L POC Whole Blood Glucose 119 MG/DL (74-106) H Current Medications Medications (Trade) Dose Ordered Sig/Leonel Route PRN Reason Start Time Stop Time Status Last Admin Dose Admin Acetaminophen (Tylenol) 650 mg Q4H PRN GT Mild Pain (Pain Scale 1-3) 09/21/19 12:45 10/21/19 12:44 10/07/19 23:28 Barium Sulfate (Readi-Cat 2) 450 ml NOW PRN ORAL Radiology Procedure 10/10/19 21:00 10/12/19 20:54 Chlorhexidine Gluconate (Felipa-Hex 2%) 1 applic DAILY@1999 TOPIC 09/12/19 20:00 12/11/19 19:59 10/10/19 20:09 Clonidine HCl (Catapres Tab) 0.1 mg Q4H PRN GT For High Blood Pressure 09/09/19 12:30 12/08/19 05:29 09/15/19 04:10 Dextrose (Dextrose 50%) 25 ml Q30M PRN IV Hypoglycemia 08/09/19 07:30 11/07/19 07:29 Dextrose (Dextrose 50%) 50 ml Q30M PRN IV Hypoglycemia 08/09/19 07:30 11/07/19 07:29 Diphenoxylate HCl/ Atropine (Lomotil) 2.5 mg QID PRN ORAL Diarrhea 09/24/19 08:45 10/24/19 08:44 Epoetin Andreas (Epoetin Andreas(ESRD on dialysis)) 10,000 unit WED-WED-WED SUBQ 10/09/19 21:00 01/07/20 20:59 10/09/19 21:12 Famotidine (Pepcid) 20 mg DAILY GT 08/30/19 09:00 11/28/19 08:59 10/11/19 08:08 Insulin Aspart (NovoLOG) Q6HR SUBQ 09/25/19 18:00 11/07/19 11:29 10/10/19 05:57 Iohexol (OMNIPAQUE-300 100ml) 100 ml NOW PRN INJ Radiology Procedure 10/10/19 21:00 10/12/19 20:54 Lactobacillus Acidophilus (Culturelle) 1 tab EVERY 12 HOURS GT 10/03/19 21:00 12/13/19 17:59 10/11/19 08:08 Metoprolol Tartrate (Lopressor) 200 mg Q12HR GT 08/09/19 09:00 11/07/19 08:59 10/11/19 08:09 Minoxidil (Loniten) 5 mg DAILY GT 08/09/19 09:00 11/07/19 08:59 10/11/19 08:09 Zinc Oxide (Zinc Oxide) 1 applic EVERY 12 HOURS TOPIC 10/03/19 09:00 11/08/19 17:59 10/11/19 08:09 Farnaz Lyle MD Oct 11, 2019 10:42"
--- NOTE | 2019-10-11 11:00 | NUR ---
NURSE NOTES: Transported pt to CT scan via hospital bed with the [facility], RT and transportation staff. Pt is attached in manager monitoring , vpacing pt is asymptomatic and o2 sat 100% via ambubag. Pt not in distress. No any signs of respiratory distress and pain.
--- NOTE | 2019-10-11 11:40 | NUR ---
NURSE NOTES: Pt was transported back from the CT dept and pt is tolerating well the procedure. No signs of bradycardia or any change in rhythym. Pt VS WNL. O2 sat at 100%. No signs of respiratory distress. Transferred comfortably. RT on the side.
[2019-10-11 12:00] VITALS: BP 140/64
--- NOTE | 2019-10-11 12:57 | NUR ---
CASE MANAGEMENT: REVIEW SI: ESRD on HD . CHRONIC LEUKOCYTOSIS T 97.5 HR 66 RR 15 BP 130/50 SAT 100% MECH VENT FIO2 24 WBC 14.2 H/H 8.3/27.5 BUN 44 CR 2.9 IS: COLISTIN INH Q12HR EPOETIN SUBQ QMWF HEPARIN IV PRN HD NOVOLOG SUBQ Q6HR HD NEEDED GT FEEDING STEP DOWN UNIT STATUS DCP: PATIENT [facility] BE[facility] HD [facility] PENDING [facility] PLAN [facility]. PER [facility] CM HD [facility] WAS SENT TO DIALYSIS CENTER
--- NOTE | 2019-10-11 13:09 | NUR ---
*-* INSURANCE *-* UPDATED CLINICALS AND REVIEWS HAVE BEEN FAXED TO: [facility] REF# [id number] RIC:HARPER P:[phone] F:[phone]
--- NOTE | 2019-10-11 15:49 | Diagnostic Imaging Report ---
Clinical Indication: Abdominal pain, anemia, fevers, leukocytosis, renal failure Technique: No oral contrast utilized, per emergency room physician request IV administration nonionic contrast. Venous phase spiral acquisition obtained through the abdomen and pelvis. Multiplanar reconstructions were generated. Total dose length product 428 mGycm. CTDIvol(s) 8 mGy. Dose reduction achieved using automated exposure control Comparison: 08/17/2019 Findings: Gastrostomy again demonstrated in satisfactory position. The stomach is otherwise unremarkable. The distal esophagus and duodenum are unremarkable. Ingested contrast reaches the colon. No small bowel distention or small bowel wall thickening. Interim placement of a rectal tube. There are a few colonic diverticula. No definite evidence of acute diverticulitis. The appendix is prominent in caliber, as previously No free or loculated intraperitoneal gas or fluid is evident. Again demonstrated is marked gaseous distention of the sigmoid colon which measures up to 12.6 cm in diameter, with the proximal aspect located laterally to the distal aspect, and caliber transition in the mesenteric root of both entry points. However, there is stool within the proximal portion which appears to be at least partially contrast opacified, and no definite persisting of the vascular pedicle demonstrated. The liver, gallbladder, bile ducts, pancreas, spleen, adrenals, kidneys are unremarkable. There are accessory splenules demonstrated. No retroperitoneal or mesenteric mass or adenopathy. No pelvic mass or adenopathy. The prostate is enlarged and protrudes into the inferior bladder. The bladder is thick-walled. Previously demonstrated Avalos catheter has been removed. Again demonstrated is a large right pleural effusion and a moderate to large left pleural effusion. Again demonstrated are compressive atelectatic changes of significant portions of both lower lobes. Pacemaker wires are seen within the heart. Previously demonstrated high attenuation focus within the right pectineus muscle is not evident. However, there is a low-attenuation area which measures 2 cm diameter centrally which is not evident previously. There is diffuse edema of the subcutaneous fat. This is less severe than was demonstrated previously. There are degenerative proliferative changes of the lumbar spine. Impression: Abnormal configuration of the sigmoid colon, with marked distention of a sigmoid, inversion of the relationships of the proximal and descending colon, and evidence of immediately apposed transition point raises concern for sigmoid volvulus. However, similarity to the prior exam, presence of what appears to be contrast opacified stool within the dilated segment, and lack of evidence of twisting of the vascular pedicle raises the possibility that this is baseline for this patient or possibly dysfunctional in nature. Correlate with clinical findings Enlarged prostate with protrusion into the bladder floor. Bladder neoplasm not completely excludable as a result Thick-walled bladder, may indicate cystitis or be due to chronic bladder lumen obstruction related to the above Abnormalities right pectineus muscle, with a 2 cm central low attenuation area. Note that previous exam have a high attenuation focus suspicious for a small pseudoaneurysm. 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 Colonic diverticulosis. No evidence of diverticulitis Gastrostomy in good position Rectal tube in good position Large right and moderate to large left pleural effusions. Resultant compressive pulmonary atelectatic changes or graft edema subcutaneous fat, less severe than was demonstrated on prior 08/17/2019 exam. Other findings as noted, including degenerative proliferative spondylosis, pacemaker, accessory splenules The CT scanner at [facility] is accredited by the [employer] and the scans are performed using protocols designed to limit radiation exposure to as low as reasonably achievable to attain images of sufficient resolution adequate for diagnostic evaluation.
[2019-10-11 16:00] VITALS: BP 131/55
--- NOTE | 2019-10-11 16:00 | NUR ---
Reposition patient comfortably in bed. No any signs of distress noted.
--- NOTE | 2019-10-11 16:11 | NUR ---
NURSE NOTES: Spoke to Dr. Miguel regarding the result of Ct scan of the abdomen. No new orders noted at this time.
--- NOTE | 2019-10-11 16:57 | Nephrology Progress Note ---
Assessment/Plan Plan MOF ESRD - HD TTS. Anemia of CKD -TUYET. Subjective Subjective Obtunded. Objective Objective Last 24 Hour Vital Signs Date Time Temp Pulse Resp B/P (MAP) Pulse Ox O2 Delivery O2 Flow Rate FiO2 10/11/19 16:00 98.2 70 16 131/55 (80) 100 10/11/19 16:00 Mechanical Ventilator 10/11/19 16:00 24 10/11/19 16:00 73 10/11/19 14:49 74 20 24 10/11/19 13:23 65 20 24 10/11/19 12:00 24 10/11/19 12:00 97.5 66 15 140/64 (89) 100 10/11/19 12:00 65 10/11/19 12:00 Mechanical Ventilator 10/11/19 11:40 65 10/11/19 10:58 63 12 24 10/11/19 09:16 81 18 24 10/11/19 08:09 80 130/50 10/11/19 08:09 130/50 10/11/19 08:00 24 10/11/19 08:00 97.9 73 14 130/50 (76) 100 10/11/19 08:00 79 10/11/19 08:00 Mechanical Ventilator 10/11/19 07:12 72 14 24 10/11/19 04:36 86 16 24 10/11/19 04:00 Mechanical Ventilator 10/11/19 04:00 24 10/11/19 04:00 97.7 81 19 106/47 (66) 100 10/11/19 04:00 77 10/11/19 03:18 83 14 24 10/11/19 01:15 76 14 24 10/11/19 00:00 24 10/11/19 00:00 Mechanical Ventilator 10/11/19 00:00 98.0 74 19 106/54 (71) 100 10/10/19 23:46 77 10/10/19 23:10 75 12 24 10/10/19 20:43 84 19 24 10/10/19 20:09 76 98/42 10/10/19 20:00 24 10/10/19 20:00 97.5 76 18 98/42 (60) 100 10/10/19 20:00 Mechanical Ventilator 10/10/19 20:00 77 10/10/19 18:57 83 13 24 10/10/19 17:17 83 18 24 Intake and Output 10/10/19 10/11/19 19:00 07:00 Intake Total 305 ml 180 ml Output Total 100 ml 50 ml Balance 205 ml 130 ml Free Water 50 ml 60 ml Tube Feeding 255 ml 120 ml Stool Total 100 ml 50 ml Laboratory Tests 10/10/19 23:54: POC Whole Blood Glucose 136H 10/11/19 02:45: White Blood Count 14.2H, Red Blood Count 3.46L, Hemoglobin 8.3L, Hematocrit 27.5L, Mean Corpuscular Volume 80, Mean Corpuscular Hemoglobin 24.1L, Mean Corpuscular Hemoglobin Concent 30.3L, Red Cell Distribution Width 16.5H, Platelet Count 501H, Mean Platelet Volume 5.9L, Neutrophils (%) (Auto) 67.9, Lymphocytes (%) (Auto) 15.4L, Monocytes (%) (Auto) 6.3, Eosinophils (%) (Auto) 9.6H, Basophils (%) (Auto) 0.8, Sodium Level 137, Potassium Level 4.3, Chloride Level 101, Carbon Dioxide Level 25, Anion Gap 11, Blood Urea Nitrogen 44H, Creatinine 2.9H, Estimat Glomerular Filtration Rate 21.2, Glucose Level 118H, Calcium Level 9.0, Total Bilirubin 0.5, Aspartate Amino Transf (AST/SGOT) 115H, Alanine Aminotransferase (ALT/SGPT) 111H, Alkaline Phosphatase 250H, Total Protein 8.2, Albumin 2.5L, Globulin 5.7, Albumin/Globulin Ratio 0.4L 10/11/19 05:34: POC Whole Blood Glucose 119H 10/11/19 10:41: POC Whole Blood Glucose 112H 10/11/19 16:42: POC Whole Blood Glucose 140H Height (Feet): 5 Height (Inches): 10.00 Weight (Pounds): 123 Objective CV RR Trach clean Lungs CTA New Perma Cath RIJ. Abd SNT. BS + E No CCE Erica Pichardo MD Oct 11, 2019 16:57
--- NOTE | 2019-10-11 18:15 | NUR ---
Spoke to [facility] for Dialysis order for tomorrow.
--- NOTE | 2019-10-11 18:22 | Surgery Progress Note ---
Surgery Progress Note Subjective Procedure Performed Right femoral temporary hemodialysis catheter removal Additional Comments no acute events comfortable Objective Last 24 Hour Vital Signs Date Time Temp Pulse Resp B/P (MAP) Pulse Ox O2 Delivery O2 Flow Rate FiO2 10/11/19 17:17 68 13 24 10/11/19 16:00 98.2 70 16 131/55 (80) 100 10/11/19 16:00 Mechanical Ventilator 10/11/19 16:00 24 10/11/19 16:00 73 10/11/19 14:49 74 20 24 10/11/19 13:23 65 20 24 10/11/19 12:00 24 10/11/19 12:00 97.5 66 15 140/64 (89) 100 10/11/19 12:00 65 10/11/19 12:00 Mechanical Ventilator 10/11/19 11:40 65 10/11/19 10:58 63 12 24 10/11/19 09:16 81 18 24 10/11/19 08:09 80 130/50 10/11/19 08:09 130/50 10/11/19 08:00 24 10/11/19 08:00 97.9 73 14 130/50 (76) 100 10/11/19 08:00 79 10/11/19 08:00 Mechanical Ventilator 10/11/19 07:12 72 14 24 10/11/19 04:36 86 16 24 10/11/19 04:00 Mechanical Ventilator 10/11/19 04:00 24 10/11/19 04:00 97.7 81 19 106/47 (66) 100 10/11/19 04:00 77 10/11/19 03:18 83 14 24 10/11/19 01:15 76 14 24 10/11/19 00:00 24 10/11/19 00:00 Mechanical Ventilator 10/11/19 00:00 98.0 74 19 106/54 (71) 100 10/10/19 23:46 77 10/10/19 23:10 75 12 24 10/10/19 20:43 84 19 24 10/10/19 20:09 76 98/42 10/10/19 20:00 24 10/10/19 20:00 97.5 76 18 98/42 (60) 100 10/10/19 20:00 Mechanical Ventilator 10/10/19 20:00 77 10/10/19 18:57 83 13 24 I&O Intake and Output 10/10/19 10/11/19 19:00 07:00 Intake Total 305 ml 180 ml Output Total 100 ml 50 ml Balance 205 ml 130 ml Free Water 50 ml 60 ml Tube Feeding 255 ml 120 ml Stool Total 100 ml 50 ml Cardiovascular: RSR Respiratory: clear, decreased breath sounds Abdomen: soft, non-tender, present bowel sounds Extremities: no edema, no tenderness, no cyanosis, pulses, other Laboratory Tests Test 10/10/19 23:54 10/11/19 02:45 10/11/19 05:34 10/11/19 10:41 POC Whole Blood Glucose 136 MG/DL (74-106) H 119 MG/DL (74-106) H 112 MG/DL (74-106) H White Blood Count 14.2 K/UL (4.8-10.8) H Red Blood Count 3.46 M/UL (4.70-6.10) L Hemoglobin 8.3 G/DL (14.2-18.0) L Hematocrit 27.5 % (42.0-52.0) L Mean Corpuscular Volume 80 FL (80-99) Mean Corpuscular Hemoglobin 24.1 PG (27.0-31.0) L Mean Corpuscular Hemoglobin Concent 30.3 G/DL (32.0-36.0) L Red Cell Distribution Width 16.5 % (11.6-14.8) H Platelet Count 501 K/UL (150-450) H Mean Platelet Volume 5.9 FL (6.5-10.1) L Neutrophils (%) (Auto) 67.9 % (45.0-75.0) Lymphocytes (%) (Auto) 15.4 % (20.0-45.0) L Monocytes (%) (Auto) 6.3 % (1.0-10.0) Eosinophils (%) (Auto) 9.6 % (0.0-3.0) H Basophils (%) (Auto) 0.8 % (0.0-2.0) Sodium Level 137 MMOL/L (136-145) Potassium Level 4.3 MMOL/L (3.5-5.1) Chloride Level 101 MMOL/L (98-107) Carbon Dioxide Level 25 MMOL/L (21-32) Anion Gap 11 mmol/L (5-15) Blood Urea Nitrogen 44 mg/dL (7-18) H Creatinine 2.9 MG/DL (0.55-1.30) H Estimat Glomerular Filtration Rate 21.2 mL/min (>60) Glucose Level 118 MG/DL (74-106) H Calcium Level 9.0 MG/DL (8.5-10.1) Total Bilirubin 0.5 MG/DL (0.2-1.0) Aspartate Amino Transf (AST/SGOT) 115 U/L (15-37) H Alanine Aminotransferase (ALT/SGPT) 111 U/L (12-78) H Alkaline Phosphatase 250 U/L (46-116) H Total Protein 8.2 G/DL (6.4-8.2) Albumin 2.5 G/DL (3.4-5.0) L Globulin 5.7 g/dL Albumin/Globulin Ratio 0.4 (1.0-2.7) L Test 10/11/19 16:42 POC Whole Blood Glucose 140 MG/DL (74-106) H Plan Problems: (1) Anemia (2) Hyponatremia (3) Leukocytosis Assessment & Plan: Tracheostomy, left chest pacemaker are again demonstrated. There is bilateral interstitial and airspace disease and bilateral pleural fluid again demonstrated. This appears more severe than on the prior study. Bilateral interstitial and airspace infiltrates versus edema. Bilateral pleural effusions Leukocytosis, anemia, tachycardia, abnormal labs. Wound evaluated and likely etiology of patient's sepsis. Leukocytosis etiology work-up antibiotics per infectious disease Appreciate nephrology input transfuse with dialysis We will follow with recommendations thank you allowing participation's care plan HD access temp HD discussed with medical teams line okay HD as per renal persistent leukocytosis flow cyto noted improving trending down right fem line removed wbc fluctuating h/h stable lft's elevated There is a right pleural effusion Gallbladder demonstrates tiny wall adherent nonmobile echogenic foci, some possible mural calcifications, and comet tail artifact in the anterior wall. Patient unable to report sonographic Eknt's sign. Common bile duct measures 4 mm in diameter. No intrahepatic biliary ductal dilatation. Liver demonstrates normal echogenicity, no focal abnormality. There is some surface nodularity. Portal vein and hepatic veins are patent. Pancreas is incompletely visualized due to overlying bowel gas, visualized portions are unremarkable. Spleen is unremarkable. Left kidney measures 8.7 cm in length. Right kidney measures 8.9 cm length. Both kidneys demonstrate increased echogenicity. There is no hydronephrosis. No focal abnormality . Abdominal aorta is partially obscured by bowel gas, visualized portions are non-aneurysmal . A gastrostomy is noted Impression: Tiny wall adherent nonmobile gallbladder echogenic foci, may reflect wall adherent calculi, small polyps, and/or pleural calcifications. Anterior wall comet tail artifact suggests foci of adenomyomatosis. Normal caliber common bile duct Possible hepatic surface nodularity, could indicate cirrhotic change Echogenic kidneys, consistent with medical renal disease. No hydronephrosis Right pleural effusion Gastrostomy Note nonvisualization of portions of the pancreas and abdominal aorta HIDA NEGATIVE trend labs (4) Ventilator dependent (5) Right lower lobe pneumonia (6) Hypokalemia (7) Hyperkalemia (8) Anasarca (9) Decubitus skin ulcer Assessment & Plan: pt presented on admission with generalized edemae.Skin assessed under tracheostomy and no areas of concerns noted. GT Insertion is marginally erythematous with small amt slough at stoma. Unstageable Pressure Injury R elbow. Base of wound is 100% yellow slough, Borders are erythematous. Wound oozing small amt haemopurulent exudate.Darker skin tone without elevation in skin temp or erythema periwound. Pt's penis and scrotum are grossly edematous and enlarged and weeping serous exudate from numerous sites both from penis and scrotum. Two small open wounds noted at base of at base of shaft of penis ,and contreras aspect of scrotum. Both wounds oozing large amt sanguineous and serosanguineous exudate. Multiple open wounds with Biofilm at base of each wounds noted to contreras/lateral,inferior and posterior aspects of scrotum. These wounds noted to be oozing moderate amts of serosanguineous exudate. Hypertrophic scar with scattered areas of hyperpigmentation noted to Sacrum. DTPI noted to L Buttocks (L)7cm x (W)9cm. Base of wound is purple and indurated.Darker skin tone without erythema, induration or fluctuance R and L ischial tuberosities. Both heels are boggy with non-blanchable erythema. Tx.Plan: Cleanse wound R elbow with Saline. Apply TheraHoney, Apply Moisture Barrier Paste periwound. Cover with Optifoam drsg.Change Daily and prn. Wash GT site with soap and water.Pat dry. Apply Zinc Oxide Paste to GT site Daily. Leave Open to Air. Apply Zinc Oxide Paste to entire Scrotum, Place ABD pads to R and L lateral, and posterior aspects of scrotum TWICE daily. Apply Cavilon Skin Barrier to malleoli and both Heels. Cover each site with Optifoam drsgs. Change every 7 days and prn. Reposition at least every 2hours or as tolerated. Off-load heels with Pillows. APM/BECCA Mattress overlay. (10) Malnutrition Assessment & Plan: DAILY ESTIMATED NEEDS: Needs based on Renal, critical care, wound/ 61kg 22-30 kcals/kg 9501-5440 total kcals 1.25-2 g protein/kg 76-122 g total protein Fluid per MD, now on HD NUTRITION DIAGNOSIS: * Swallowing difficulty R/T respiratory failure, dysphagia as evidenced by trach/vent dep, PEG dep * Increased kcal/prot needs R/T wound healing as evidenced by admitted w/ multiple pressure injuries including full thickness wounds at junction of Shaft of penis, dorsal scrotum, R elbow, and DTPI @ L buttocks. CURRENT TF:Osmolite 1.2 @ 60ml/hr x 20 hrs + Garo BID ENTERAL NUTRITION RECOMMENDATIONS: Vital AF 1.2 @ 60ml/hr x 20 hrs to provide 1200ml, 1440kcal, 90g prot, 973ml free water * Rec 20 hr run time for GI rest. -> W/ improved GI status, rec Vital AF 1.2, an elemental and carb controlled TF -> monitor lytes and renal fxn closely, monitor need for renal TF -> TF @ goal will provide 1642mg K and 2025mg Phos -> HOB over 30 degrees/ water flush per MD -------- Trial of Osmolite 1.2 continue for now- Goal of 60ml/hr for 20 hrs (4 hrs bowel rest) to provide 1200ml, 1440 kcal, 67g pro, 984ml free H2O, -> Rec to add prosource 1 pack daily (11g pro) to better meet est pro needs. -> Monitor BG, K closely. Pt would require increased insulin coverage as TF at goal would provide 56g more carbs per day. ADDITIONAL RECOMMENDATIONS: * Per SNF: HT=63" PN=178 lbs (vs EMR wt of 166lbs) -> obtain re-calibrated bedscale wt, rec daily wt monitoring * Wound healing: con't Nephrovite + Garo BID/ Vit C dosing per Nephro * Monitor renal fxn and lytes closely w/ non-renal TF ->K low, phos wnl;updated mag level; rec increased insulin w/ BG labs * Daily wts w/ drop to 118-20 lbs, rec to recalibrate for accurate CBW * Consider DC Miralax if medically appropriate: +rectal tube (11) Uremia (12) CKD (chronic kidney disease) stage 5, GFR less than 15 ml/min (13) Colon distention Assessment & Plan: discussed with GI likely functional as having lots of loose bm rectal tube kub f/u s/p colonoscopy - findings reviewed with GI improved cont diet as tolerated Marked distention of the sigmoid colon. 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 No evidence of bowel wall thickening or pneumatosis 12 mm focus of contrast enhancement in the right pectineus muscle. While nonspecific in appearance, appearance raises concern for a possible pseudoaneurysm. Ill- defined thickening of the pectus medius muscle could indicate some intramuscular hemorrhage. The above findings were phoned to Dr. Urias at the time of interpretation Large bilateral pleural effusions Hazy pulmonary parenchymal opacities as well as dense consolidative opacities most likely represent pulmonary edema, but could represent pneumonia Evidence of anasarca elsewhere, with generalized edema of the subcutaneous fat Bladder wall thickening, raises concern for cystitis. Avalos catheter in place Colonic diverticulosis. No evidence of diverticulitis. Tracheostomy Pacemaker Gastrostomy Jonathan Urias Oct 11, 2019 18:22
--- NOTE | 2019-10-11 19:30 | NUR ---
NURSE HAND-OFF REPORT: Important Events on Shift: CT scan of abdomen with contrast -tolerated Patient Status: Stable Diet: Nepro @45cc /hr x 20 hrs Pending Orders: none Pending Results/Labs: none Pending MD notification: none Latest Vital Signs: Temperature 98.2 , Pulse 72 , B/P 131 /55 , Respiratory Rate 15 , O2 SAT 100 , Mechanical Ventilator, O2 Flow Rate 15.0 . Vital Sign Comment: WNL EKG Rhythm: Sinus Rhythm Rhythm change?: N MD Notified?: N - MD Response: Latest Delacruz Fall Score: 70 Fall Risk: High Risk Safety Measures: Call light Within Reach, Bed Alarm Zone 1, Side Rails Side Rails x3, Bed position Low and Locked. Fall Precautions: Yellow Socks Report given to .Kolton Deleon RN
--- NOTE | 2019-10-11 19:42 | NUR ---
NURSE NOTES: Report received from TAMICA Rob. Observed pt lying in the bed. Obtunded, no signs of pain noted. V paced on shelter monitor. Trach to vent, Portex 8, AC 12, TV 550, FIO2 24%, PEEP 5. GT intact, running Nepro at 45cc/hr. Rectal tube intact. IV on L H 20G, SL, asymptomatic. Dialysis access on R subclavian noted. Bed in the lowest position. Side rails up x3. will continue to monitor.
[2019-10-11 20:00] VITALS: BP 130/55
[2019-10-11] MEDS: Dyna-Hex 2% Top Sol 2oz TOPIC SCH (20:27)
[2019-10-11] MEDS: Epoetin Alfa-EPBX(ESRD on dialysis)10,000 unit/ml vial SUBQ SCH (21:32)
--- NOTE | 2019-10-11 21:39 | General Progress Note ---
Assessment/Plan Assessment/Plan: Assessment - abdominal distention, due to colonic dysmotility, - colonoscopy negative to hepatic flexure - diarrhea - presumed TF related - abnormal LFT - ? etiology --> HIDA negative and CT negative - Anemia - leukocytosis - stool OB (+) - EGD --> gastritis - Renal failure - Anasarca - resp failure, trach - b/l pleural effusions - dysphagia, GT - encephalopathy, contracted - poor px Recommendations - continue TF - Off of Statin - ? thoracentesis - rectal tube - roll side to side as feasible (hard due to severe contractions) - Elevate HOB - f/u labs - PPI - abx - supportive care Subjective Allergies: Coded Allergies: No Known Allergies (Unverified , 06/10/19) Subjective above noted had CT scan today - no liver pathology - dilated sigmoid without change - b/l pleural effusions Objective Last 24 Hour Vital Signs Date Time Temp Pulse Resp B/P (MAP) Pulse Ox O2 Delivery O2 Flow Rate FiO2 10/11/19 21:00 71 15 24 10/11/19 20:27 75 130/55 10/11/19 20:00 71 10/11/19 20:00 97.7 75 17 130/55 (80) 100 10/11/19 20:00 24 10/11/19 20:00 Mechanical Ventilator 10/11/19 18:44 72 15 24 10/11/19 17:17 68 13 24 10/11/19 16:00 98.2 70 16 131/55 (80) 100 10/11/19 16:00 Mechanical Ventilator 10/11/19 16:00 24 10/11/19 16:00 73 10/11/19 14:49 74 20 24 10/11/19 13:23 65 20 24 10/11/19 12:00 24 10/11/19 12:00 97.5 66 15 140/64 (89) 100 10/11/19 12:00 65 10/11/19 12:00 Mechanical Ventilator 10/11/19 11:40 65 10/11/19 10:58 63 12 24 10/11/19 09:16 81 18 24 10/11/19 08:09 80 130/50 10/11/19 08:09 130/50 10/11/19 08:00 24 10/11/19 08:00 97.9 73 14 130/50 (76) 100 10/11/19 08:00 79 10/11/19 08:00 Mechanical Ventilator 10/11/19 07:12 72 14 24 10/11/19 04:36 86 16 24 10/11/19 04:00 Mechanical Ventilator 10/11/19 04:00 24 10/11/19 04:00 97.7 81 19 106/47 (66) 100 10/11/19 04:00 77 10/11/19 03:18 83 14 24 10/11/19 01:15 76 14 24 10/11/19 00:00 24 10/11/19 00:00 Mechanical Ventilator 10/11/19 00:00 98.0 74 19 106/54 (71) 100 10/10/19 23:46 77 10/10/19 23:10 75 12 24 Intake and Output 10/10/19 10/11/19 19:00 07:00 Intake Total 305 ml 180 ml Output Total 100 ml 50 ml Balance 205 ml 130 ml Free Water 50 ml 60 ml Tube Feeding 255 ml 120 ml Stool Total 100 ml 50 ml Laboratory Tests 10/10/19 23:54: POC Whole Blood Glucose 136H 10/11/19 02:45: White Blood Count 14.2H, Red Blood Count 3.46L, Hemoglobin 8.3L, Hematocrit 27.5L, Mean Corpuscular Volume 80, Mean Corpuscular Hemoglobin 24.1L, Mean Corpuscular Hemoglobin Concent 30.3L, Red Cell Distribution Width 16.5H, Platelet Count 501H, Mean Platelet Volume 5.9L, Neutrophils (%) (Auto) 67.9, Lymphocytes (%) (Auto) 15.4L, Monocytes (%) (Auto) 6.3, Eosinophils (%) (Auto) 9.6H, Basophils (%) (Auto) 0.8, Sodium Level 137, Potassium Level 4.3, Chloride Level 101, Carbon Dioxide Level 25, Anion Gap 11, Blood Urea Nitrogen 44H, Creatinine 2.9H, Estimat Glomerular Filtration Rate 21.2, Glucose Level 118H, Calcium Level 9.0, Total Bilirubin 0.5, Aspartate Amino Transf (AST/SGOT) 115H, Alanine Aminotransferase (ALT/SGPT) 111H, Alkaline Phosphatase 250H, Total Protein 8.2, Albumin 2.5L, Globulin 5.7, Albumin/Globulin Ratio 0.4L 10/11/19 05:34: POC Whole Blood Glucose 119H 10/11/19 10:41: POC Whole Blood Glucose 112H 10/11/19 16:42: POC Whole Blood Glucose 140H Height (Feet): 5 Height (Inches): 10.00 Weight (Pounds): 123 Objective Debilitated AA man NCAT (+) trach coarse BS RR abd less distended, anasarca, (+) GT, (+) rectal tube ext contracted Ronny Mustafa MD Oct 11, 2019 21:39
[2019-10-12] VITALS: BP 129/59
--- NOTE | 2019-10-12 | NUR ---
NURSE NOTES: No acute distress noted at this time. Tolerating feeding, no residual. Tolerating vent setting, no sob, saturating at 99%. AM care done. Reposition done. Oral care given. Will continue to monitor.
[2019-10-12 04:00] VITALS: BP 143/57
[2019-10-12 05:33] LABS: ALANINE AMINOTRANSFERASE 116 U/L (12-78); ALBUMIN 2.5 G/DL (3.4-5.0); ALBUMIN/GLOBULIN RATIO 0.4 (1.0-2.7); ALKALINE PHOSPHATASE 350 U/L (46-116); ANION GAP 12 mmol/L (5-15); ASPARTATE AMINO TRANSFERASE 98 U/L (15-37); BILIRUBIN,TOTAL 0.4 MG/DL (0.2-1.0); BLOOD UREA NITROGEN 64 mg/dL (7-18); CALCIUM 9.2 MG/DL (8.5-10.1); CARBON DIOXIDE 24 MMOL/L (21-32); CHLORIDE 96 MMOL/L (98-107); CREATININE 3.9 MG/DL (0.55-1.30); POTASSIUM 4.2 MMOL/L (3.5-5.1); SODIUM 132 MMOL/L (136-145)
[2019-10-12] MEDS: NovoLOG Insulin Flexpen SUBQ SCH ×4 (06:17→23:46)
--- NOTE | 2019-10-12 07:04 | Hematology/Onc Progress Note ---
Assessment/Plan Assessment/Plan Assessment/recs # Anemia due to chronic disease/kidney disease as well, gi bleed + occult + noted --> was on iron in the past, now on hold --> has been started on Epogen sq --> as per renal care --> egd done and shows gastritis --> on ppi --> egd showed gastritis, colo recently done --> hgb 9-->8.7-->7.6-->9.2-->8.9-->9.2->9.3-->8.8->9.9-->9.2-->8.1-->8.7-->7.9- ->8.6-->8.9-->8.2->9-->9.3->8.9-->9.5-->10.6->9.2-->10->8.9-->8.3 --> spep ordered->wnl # Leukocytosis - with multiple infections, VRE UTI, flow is negative --> wbc trend 33-->28-->25->23->22->23->24->17.3-->17-->14->16-->15.6-->14-->14- >13->19->18->17->22->22->19->17-->18->20-->15-->14->16-->14-->17->18-->17->15 --> on abx, linezolid and zosyn--> zosyn-->gent-->off --> + blood cultures with coag neg staph likely contaminated --> as per id recs --> has ordered a flow cytometry (with pathology) --> does show increased nK cell activity --> JOURDAN 2 and bcr-abl labs ordered (these are send outs)->negative --> plt 585-->613-->649-->669->663-->529-->506 # Elevated ddimer on admission --> duplex lower legs neg for dvt # Respiratory failure --> per pulm, s/p trach --> COVID 19 test negative x 2 # Hyperlipidemia --> statin po # Dysphagia s/p gtube with nepro --> per gi # ESRD with r fem julito --> hd as per renal # Dvt ppx scds Appreciate consultation and matt Rn Subjective Gastrointestinal/Abdominal: Denies: no symptoms, abdomen distended, abdominal pain, black stools, tarry stools, blood in stool, constipated, diarrhea, difficulty swallowing, nausea, poor appetite, poor fluid intake, rectal bleeding , vomiting, other Neurologic/Psychiatric: Denies: no symptoms, anxiety, depressed, emotional problems, headache, numbness, paresthesia, pre-existing deficit, seizure, tingling, tremors, weakness, other Endocrine: Denies: no symptoms, excessive sweating, flushing, intolerance to cold, intolerance to heat, increased hunger, increased thirst, increased urine, unexplained weight gain, unexplained weight loss, other Allergies: Coded Allergies: No Known Allergies (Unverified , 06/10/19) All Systems: reviewed and negative except above Subjective 08/15 meds noted, no bleeding, hgb 8.8, wbc 28, path flow pending 08/16 flow pending dw pathologist, results pending, wbc 25, hgb 9 08/17 labs reviewed, meds reviewed, meds noted, no night sweats 08/19 remains obtunded, on vent/trach, no bleeding wbc 21.7 08/20 labs have been reviewed, no bleeding, wbc still elev, path reviewed 08/21 labs are noted, no bleeding, on vent, wbc better 08/22 labs noted, no bleeding, meds reviewed, wbc 24 hgb 7.6 08/23 vent, off abx, c diff negative, h/h stable 08/24 labs reviewed, on abx, wbc 17, hgb 8.9, no hemolysis 08/26 reviewed flow and is negative for leukemia, matt rn 08/27 meds reviewed, no night sweats, matt rn, no major bleeding 08/28 meds reivewed, labs noted 08/29 wbc is stable, approx 15, hgb 8.8, no hemolysis 08/30 labs are noted, is for colo today, hgb 9.9 08/31 right fem julito in place, unchanged, hgb 9.2, gi aware 09/01 labs noted, hgb 8.8, plt >600, no bleeding 09/02 labs noted, no bleeding, with elev wbc still, no new changes 09/03 meds are noted, no bleeding, labs reviewed hgb 8.6 09/04 no major events, hd as per renal, abx, no bleeding hgb low 09/05 labs are noted, no bleeding, meds have been reviewed 09/06 no new labs no hemolysis, cbc is noted, no bleeding 09/07 meds reviewed, no bleeding, matt rn, permacath functioning well 09/09 meds reviewed, wbc still elevated, as per id recs, cbc noted 09/10 is obtunded, with gutbe in place, labs reviewed 09/11 obtunded, as per id, observe now off abx, labs noted, wbc 19 09/12 cbc is pending, remains on epogen, also off abx 09/13 labs reviewed, no bleeding, elev wbc, no night sweats 09/14 meds noted, no bleeding, wbc 19, hgb 9.5, no night sweats 09/21 obtunded, remains on vent, labs noted, no bleeding, hgb 8.9 09/22 obtunded, labs noted, no bleeding, on vent, unchanged 09/23 unchanges, wbc remains elevated 20k, on abx, on vent 09/24 labs have been reviewed, no bleeding, wbc 15, may need abx 09/25 formula gtube changed, labs noted, remains obtunded, hgb 9.3 09/26 labs have been reviewed, no bleeding, matt rn, no night sweats 09/27 meds reviewed, no bleeding, wbc 14, on abx, remains obtunded 09/28 remains obtunded, no bleeding, wbc better, hgb 8.9, no hemolysis, plt 506 09/30 on colisitn, wbc elevated, cefepime added per id, hgb stable 10/01 labs reviewed, no bleeding, matt rn, no major events noted, wbc 14, hgb 10.6 10/02 labs have been noted, hgb 9.2, wbc 17, on abx, matt wright 10/03 continue on tube feeds, no bleeding, on vent, wbc remains elevated 10/04 remains ibtunded, is on a mechanical ventilator with tube feeds noted 10/05 labs are noted, hgb 8.6, wbc remains elevated, have ordered for spep 10/07 obtunded on vent, with gtube feeds, labs reviewed, matt rn 10/08 labs are noted, on vent/trach, hgb 10.2, remains obtunded 10/09 labns noted, wbc 15, hgb 8.9, remains altered, on tfs 10/10 labs noted, holding tube feeds, matt rn, hg stable 8.3 currently 10/11 remains on tfs, supportive care, labs noted, no bleeding Objective Objective Current Medications Medications (Trade) Dose Ordered Sig/Leonel Route PRN Reason Start Time Stop Time Status Last Admin Dose Admin Acetaminophen (Tylenol) 650 mg Q4H PRN GT Mild Pain (Pain Scale 1-3) 09/21/19 12:45 10/21/19 12:44 10/07/19 23:28 Barium Sulfate (Readi-Cat 2) 450 ml NOW PRN ORAL Radiology Procedure 10/10/19 21:00 10/12/19 20:54 Chlorhexidine Gluconate (Felipa-Hex 2%) 1 applic DAILY@1999 TOPIC 09/12/19 20:00 12/11/19 19:59 10/11/19 20:27 Clonidine HCl (Catapres Tab) 0.1 mg Q4H PRN GT For High Blood Pressure 09/09/19 12:30 12/08/19 05:29 09/15/19 04:10 Dextrose (Dextrose 50%) 25 ml Q30M PRN IV Hypoglycemia 08/09/19 07:30 11/07/19 07:29 Dextrose (Dextrose 50%) 50 ml Q30M PRN IV Hypoglycemia 08/09/19 07:30 11/07/19 07:29 Diphenoxylate HCl/ Atropine (Lomotil) 2.5 mg QID PRN ORAL Diarrhea 09/24/19 08:45 10/24/19 08:44 Epoetin Andreas (Epoetin Andreas(ESRD on dialysis)) 10,000 unit WED-WED-WED SUBQ 10/09/19 21:00 01/07/20 20:59 10/11/19 21:32 Famotidine (Pepcid) 20 mg DAILY GT 08/30/19 09:00 11/28/19 08:59 10/11/19 08:08 Insulin Aspart (NovoLOG) Q6HR SUBQ 09/25/19 18:00 11/07/19 11:29 10/12/19 06:17 Iohexol (OMNIPAQUE-300 100ml) 100 ml NOW PRN INJ Radiology Procedure 10/10/19 21:00 10/12/19 20:54 Lactobacillus Acidophilus (Culturelle) 1 tab EVERY 12 HOURS GT 10/03/19 21:00 12/13/19 17:59 10/11/19 20:27 Metoprolol Tartrate (Lopressor) 200 mg Q12HR GT 08/09/19 09:00 11/07/19 08:59 10/11/19 20:27 Minoxidil (Loniten) 5 mg DAILY GT 08/09/19 09:00 11/07/19 08:59 10/11/19 08:09 Zinc Oxide (Zinc Oxide) 1 applic EVERY 12 HOURS TOPIC 10/03/19 09:00 11/08/19 17:59 10/11/19 20:29 Last 24 Hour Vital Signs Date Time Temp Pulse Resp B/P (MAP) Pulse Ox O2 Delivery O2 Flow Rate FiO2 10/12/19 04:46 79 16 24 10/12/19 04:00 98.2 79 17 143/57 (85) 100 10/12/19 04:00 24 10/12/19 04:00 78 10/12/19 04:00 Mechanical Ventilator 10/12/19 03:04 77 18 24 10/12/19 00:53 73 12 24 10/12/19 00:00 74 10/12/19 00:00 Mechanical Ventilator 10/12/19 00:00 97.2 71 17 129/59 (82) 100 10/11/19 22:46 72 18 24 10/11/19 21:00 71 15 24 10/11/19 20:27 75 130/55 10/11/19 20:00 71 10/11/19 20:00 97.7 75 17 130/55 (80) 100 10/11/19 20:00 24 10/11/19 20:00 Mechanical Ventilator 10/11/19 18:44 72 15 24 10/11/19 17:17 68 13 24 10/11/19 16:00 98.2 70 16 131/55 (80) 100 10/11/19 16:00 Mechanical Ventilator 10/11/19 16:00 24 10/11/19 16:00 73 10/11/19 14:49 74 20 24 10/11/19 13:23 65 20 24 10/11/19 12:00 24 10/11/19 12:00 97.5 66 15 140/64 (89) 100 10/11/19 12:00 65 10/11/19 12:00 Mechanical Ventilator 10/11/19 11:40 65 10/11/19 10:58 63 12 24 10/11/19 09:16 81 18 24 10/11/19 08:09 80 130/50 10/11/19 08:09 130/50 10/11/19 08:00 24 10/11/19 08:00 97.9 73 14 130/50 (76) 100 10/11/19 08:00 79 10/11/19 08:00 Mechanical Ventilator 10/11/19 07:12 72 14 24 10/11/19 04:36 86 16 24 10/11/19 04:00 Mechanical Ventilator 10/11/19 04:00 24 10/11/19 04:00 97.7 81 19 106/47 (66) 100 10/11/19 04:00 77 10/11/19 03:18 83 14 24 10/11/19 01:15 76 14 24 10/11/19 00:00 24 10/11/19 00:00 Mechanical Ventilator 10/11/19 00:00 98.0 74 19 106/54 (71) 100 10/10/19 23:46 77 10/10/19 23:10 75 12 24 10/10/19 20:43 84 19 24 10/10/19 20:09 76 98/42 10/10/19 20:00 24 10/10/19 20:00 97.5 76 18 98/42 (60) 100 10/10/19 20:00 Mechanical Ventilator 10/10/19 20:00 77 10/10/19 18:57 83 13 24 10/10/19 17:17 83 18 24 10/10/19 16:00 24 10/10/19 16:00 Mechanical Ventilator 10/10/19 16:00 97.5 83 18 119/64 (82) 100 10/10/19 15:32 81 10/10/19 15:15 82 13 24 10/10/19 13:00 84 14 24 10/10/19 12:00 90 10/10/19 12:00 97.7 91 17 122/56 (78) 100 10/10/19 12:00 24 10/10/19 12:00 Mechanical Ventilator 10/10/19 11:01 91 23 24 10/10/19 09:00 81 19 24 10/10/19 08:05 88 153/74 10/10/19 08:05 153/74 10/10/19 08:00 98.1 88 18 153/74 (100) 95 10/10/19 08:00 Mechanical Ventilator 10/10/19 08:00 24 10/10/19 07:42 86 Intake and Output 10/11/19 10/12/19 19:00 07:00 Intake Total 410 ml 600 ml Output Total 100 ml 300 ml Balance 310 ml 300 ml Free Water 50 ml 150 ml Tube Feeding 360 ml 450 ml Stool Total 100 ml 300 ml Labs Test 10/09/19 11:46 10/09/19 15:14 10/09/19 17:55 10/09/19 23:34 POC Whole Blood Glucose 120 MG/DL (74-106) 119 MG/DL (74-106) 136 MG/DL (74-106) 202 MG/DL (74-106) Test 10/10/19 03:20 10/10/19 05:52 10/10/19 11:17 10/10/19 16:20 White Blood Count 15.4 K/UL (4.8-10.8) 16.7 K/UL (4.8-10.8) Red Blood Count 3.71 M/UL (4.70-6.10) 3.63 M/UL (4.70-6.10) Hemoglobin 8.9 G/DL (14.2-18.0) 8.8 G/DL (14.2-18.0) Hematocrit 29.6 % (42.0-52.0) 29.3 % (42.0-52.0) Mean Corpuscular Volume 80 FL (80-99) 81 FL (80-99) Mean Corpuscular Hemoglobin 24.0 PG (27.0-31.0) 24.2 PG (27.0-31.0) Mean Corpuscular Hemoglobin Concent 30.1 G/DL (32.0-36.0) 30.0 G/DL (32.0-36.0) Red Cell Distribution Width 16.7 % (11.6-14.8) 17.9 % (11.6-14.8) Platelet Count 549 K/UL (150-450) 510 K/UL (150-450) Mean Platelet Volume 5.8 FL (6.5-10.1) 6.1 FL (6.5-10.1) Neutrophils (%) (Auto) 64.2 % (45.0-75.0) 67.7 % (45.0-75.0) Lymphocytes (%) (Auto) 17.3 % (20.0-45.0) 14.3 % (20.0-45.0) Monocytes (%) (Auto) 9.1 % (1.0-10.0) 6.9 % (1.0-10.0) Eosinophils (%) (Auto) 8.6 % (0.0-3.0) 9.6 % (0.0-3.0) Basophils (%) (Auto) 0.7 % (0.0-2.0) 1.6 % (0.0-2.0) Sodium Level 131 MMOL/L (136-145) 134 MMOL/L (136-145) Potassium Level 5.5 MMOL/L (3.5-5.1) 5.1 MMOL/L (3.5-5.1) Chloride Level 94 MMOL/L (98-107) 96 MMOL/L (98-107) Carbon Dioxide Level 25 MMOL/L (21-32) 27 MMOL/L (21-32) Anion Gap 12 mmol/L (5-15) 11 mmol/L (5-15) Blood Urea Nitrogen 114 mg/dL (7-18) 109 mg/dL (7-18) Creatinine 5.4 MG/DL (0.55-1.30) 5.4 MG/DL (0.55-1.30) Estimat Glomerular Filtration Rate 10.3 mL/min (>60) 10.3 mL/min (>60) Glucose Level 177 MG/DL (74-106) 159 MG/DL (74-106) Calcium Level 8.9 MG/DL (8.5-10.1) 9.4 MG/DL (8.5-10.1) Total Bilirubin 0.4 MG/DL (0.2-1.0) Aspartate Amino Transf (AST/SGOT) 96 U/L (15-37) Alanine Aminotransferase (ALT/SGPT) 108 U/L (12-78) Alkaline Phosphatase 289 U/L (46-116) Total Protein 8.8 G/DL (6.4-8.2) Albumin 1.8 G/DL (3.4-5.0) Globulin 7.0 g/dL Albumin/Globulin Ratio 0.3 (1.0-2.7) POC Whole Blood Glucose 135 MG/DL (74-106) Test 10/10/19 16:25 10/10/19 23:54 10/11/19 02:45 10/11/19 05:34 POC Whole Blood Glucose 133 MG/DL (74-106) 136 MG/DL (74-106) 119 MG/DL (74-106) White Blood Count 14.2 K/UL (4.8-10.8) Red Blood Count 3.46 M/UL (4.70-6.10) Hemoglobin 8.3 G/DL (14.2-18.0) Hematocrit 27.5 % (42.0-52.0) Mean Corpuscular Volume 80 FL (80-99) Mean Corpuscular Hemoglobin 24.1 PG (27.0-31.0) Mean Corpuscular Hemoglobin Concent 30.3 G/DL (32.0-36.0) Red Cell Distribution Width 16.5 % (11.6-14.8) Platelet Count 501 K/UL (150-450) Mean Platelet Volume 5.9 FL (6.5-10.1) Neutrophils (%) (Auto) 67.9 % (45.0-75.0) Lymphocytes (%) (Auto) 15.4 % (20.0-45.0) Monocytes (%) (Auto) 6.3 % (1.0-10.0) Eosinophils (%) (Auto) 9.6 % (0.0-3.0) Basophils (%) (Auto) 0.8 % (0.0-2.0) Sodium Level 137 MMOL/L (136-145) Potassium Level 4.3 MMOL/L (3.5-5.1) Chloride Level 101 MMOL/L (98-107) Carbon Dioxide Level 25 MMOL/L (21-32) Anion Gap 11 mmol/L (5-15) Blood Urea Nitrogen 44 mg/dL (7-18) Creatinine 2.9 MG/DL (0.55-1.30) Estimat Glomerular Filtration Rate 21.2 mL/min (>60) Glucose Level 118 MG/DL (74-106) Calcium Level 9.0 MG/DL (8.5-10.1) Total Bilirubin 0.5 MG/DL (0.2-1.0) Aspartate Amino Transf (AST/SGOT) 115 U/L (15-37) Alanine Aminotransferase (ALT/SGPT) 111 U/L (12-78) Alkaline Phosphatase 250 U/L (46-116) Total Protein 8.2 G/DL (6.4-8.2) Albumin 2.5 G/DL (3.4-5.0) Globulin 5.7 g/dL Albumin/Globulin Ratio 0.4 (1.0-2.7) Test 10/11/19 10:41 10/11/19 16:42 10/11/19 23:18 10/12/19 03:10 POC Whole Blood Glucose 112 MG/DL (74-106) 140 MG/DL (74-106) 167 MG/DL (74-106) Sodium Level 132 MMOL/L (136-145) Potassium Level 4.2 MMOL/L (3.5-5.1) Chloride Level 96 MMOL/L (98-107) Carbon Dioxide Level 24 MMOL/L (21-32) Anion Gap 12 mmol/L (5-15) Blood Urea Nitrogen 64 mg/dL (7-18) Creatinine 3.9 MG/DL (0.55-1.30) Estimat Glomerular Filtration Rate 15.0 mL/min (>60) Glucose Level 154 MG/DL (74-106) Calcium Level 9.2 MG/DL (8.5-10.1) Total Bilirubin 0.4 MG/DL (0.2-1.0) Aspartate Amino Transf (AST/SGOT) 98 U/L (15-37) Alanine Aminotransferase (ALT/SGPT) 116 U/L (12-78) Alkaline Phosphatase 350 U/L (46-116) Total Protein 9.0 G/DL (6.4-8.2) Albumin 2.5 G/DL (3.4-5.0) Globulin 6.5 g/dL Albumin/Globulin Ratio 0.4 (1.0-2.7) Test 10/12/19 06:11 POC Whole Blood Glucose 184 MG/DL (74-106) Height (Feet): 5 Height (Inches): 10.00 Weight (Pounds): 123 Objective Physical Exam General Appearance: nad, Chronically Ill Head: normocephalic Eyes: right eye PERRL - Will not open left eye ENT: moist mucus membranes Neck: other - submandibular mass R, fairly rigid with resistance to rotation to L, tracheotomy Respiratory: decreased breath sounds, crackles, other - pacemaker, vent+ Cardiovascular: regular rate, rhythm, edema - anasarca Gastrointestinal: non tender, distended, other - G tube Genitourinary: other Musculoskeletal: other - Contractures all extremities Neurologic: sensory intact, motor weakness, responsive Psychiatric: other Skin: Decubitus/Ulcer - Stage III right elbow, stage III left elbow, stage II sacrum, stage III scrotum, warm/dry Fitz Campos MD Oct 12, 2019 07:04
--- NOTE | 2019-10-12 07:32 | NUR ---
NURSE HAND-OFF REPORT: Important Events on Shift: Rectal tube; stool becomes pasty. Patient Status: stable Diet: Nepro at 45cc/hr Pending Orders: n Pending Results/Labs:n Pending MD notification:n Latest Vital Signs: Temperature 98.2 , Pulse 76 , B/P 143 /57 , Respiratory Rate 15 , O2 SAT 100 , Mechanical Ventilator, O2 Flow Rate 15.0 . Vital Sign Comment: EKG Rhythm: V-Paced Rhythm change?: N MD Notified?: N - MD Response: Latest Delacruz Fall Score: 70 Fall Risk: High Risk Safety Measures: Call light Within Reach, Bed Alarm Zone 1, Side Rails Side Rails x3, Bed position Low and Locked. Fall Precautions: Yellow Socks Report given to TAMICA Rueda.
--- NOTE | 2019-10-12 07:36 | NUR ---
Recieved report from Kolton Deleon RN. Pt. observed lying in bed, in lowest position. Currently tolerating current vent settings of AC 12, TV 550, PEEP of 5, and FiO2 of 24%. Pt. still on Portex 8, scant clear odorless sputum noted. R subclavian permacath intact, dressing clean and intact, with no irritation on surrounding skin. GT intact, patent, and draining well. Currently on Nephro 45cc/hr x 20hrs. Currently OFF with orders to be turned ON @ 1000. Rectal tube intact, no loops or kinks noted. Will have HD today, all BP meds held per protocol. HD nurse reported to be in unit between [id number]. Will continue current plan of care.
--- NOTE | 2019-10-12 08:20 | General Progress Note ---
Assessment/Plan Assessment/Plan: IMPRESSION: 1. anemia. 2. fevers improved 3. Leukocytosis. 4. hypotension 5. Acute on chronic renal failure. 6. Hyponatremia. 7. Severe protein-calorie malnutrition. 8. Significantly elevated C-reactive protein concerning for infectious etiology. 9. Tracheostomy, G-tube. 10. Ventilator dependence. 11. anasarca 12. Hematuria 13. V pacing 14. hyponatremia 15. transaminitis, HIDA negative PLAN chronic care; unable to place care noted may need CT on vent/ no wean monitor labs and optimize ID follow up dialysis ongoing prognosis poor for recovery impression, plan, and exam edited and reviewed in detail care discussed with RN Subjective Allergies: Coded Allergies: No Known Allergies (Unverified , 06/10/19) Subjective remains ill on vent/ no change on HD vitals noted Objective Last 24 Hour Vital Signs Date Time Temp Pulse Resp B/P (MAP) Pulse Ox O2 Delivery O2 Flow Rate FiO2 10/12/19 07:26 76 15 24 10/12/19 04:46 79 16 24 10/12/19 04:00 98.2 79 17 143/57 (85) 100 10/12/19 04:00 24 10/12/19 04:00 78 10/12/19 04:00 Mechanical Ventilator 10/12/19 03:04 77 18 24 10/12/19 00:53 73 12 24 10/12/19 00:00 74 10/12/19 00:00 Mechanical Ventilator 10/12/19 00:00 97.2 71 17 129/59 (82) 100 10/11/19 22:46 72 18 24 10/11/19 21:00 71 15 24 10/11/19 20:27 75 130/55 10/11/19 20:00 71 10/11/19 20:00 97.7 75 17 130/55 (80) 100 10/11/19 20:00 24 10/11/19 20:00 Mechanical Ventilator 10/11/19 18:44 72 15 24 10/11/19 17:17 68 13 24 10/11/19 16:00 98.2 70 16 131/55 (80) 100 10/11/19 16:00 Mechanical Ventilator 10/11/19 16:00 24 10/11/19 16:00 73 10/11/19 14:49 74 20 24 10/11/19 13:23 65 20 24 9/2/20 12:00 24 10/11/19 12:00 97.5 66 15 140/64 (89) 100 10/11/19 12:00 65 10/11/19 12:00 Mechanical Ventilator 10/11/19 11:40 65 10/11/19 10:58 63 12 24 10/11/19 09:16 81 18 24 Intake and Output 10/11/19 10/12/19 19:00 07:00 Intake Total 410 ml 600 ml Output Total 100 ml 300 ml Balance 310 ml 300 ml Free Water 50 ml 150 ml Tube Feeding 360 ml 450 ml Stool Total 100 ml 300 ml Laboratory Tests 10/11/19 10:41: POC Whole Blood Glucose 112H 10/11/19 16:42: POC Whole Blood Glucose 140H 10/11/19 23:18: POC Whole Blood Glucose 167H 10/12/19 03:10: Sodium Level 132L, Potassium Level 4.2, Chloride Level 96L, Carbon Dioxide Level 24, Anion Gap 12, Blood Urea Nitrogen 64H, Creatinine 3.9H, Estimat Glomerular Filtration Rate 15.0, Glucose Level 154H, Calcium Level 9.2, Total Bilirubin 0.4, Aspartate Amino Transf (AST/SGOT) 98H, Alanine Aminotransferase ( ALT/SGPT) 116H, Alkaline Phosphatase 350H, Total Protein 9.0H, Albumin 2.5L, Globulin 6.5, Albumin/Globulin Ratio 0.4L 10/12/19 06:11: POC Whole Blood Glucose 184H Height (Feet): 5 Height (Inches): 10.00 Weight (Pounds): 123 Objective GENERAL: Ill-appearing male, chronically debilitated. HEENT: Tracheostomy in midline. Questionable fullness in the submandibular region. LUNGS: Coarse breath sounds. reduced breath sounds CARDIAC: S1, S2. Regular rate and rhythm. ABDOMEN: Soft. G-tube. EXTREMITIES: With noted edema. NEUROLOGICAL: Poorly responsive, weak diffusely. Kain Ramirez MD Oct 12, 2019 08:20
[2019-10-12 08:44] VITALS: BP 142/68
[2019-10-12] MEDS: Metoprolol Tartrate 100mg tab GT SCH ×2 (09:00→21:00)
[2019-10-12] MEDS: Minoxidil 2.5mg tab GT SCH (09:00)
--- NOTE | 2019-10-12 09:07 | General Progress Note ---
Assessment/Plan Assessment/Plan: Assessment - abdominal distention, due to colonic dysmotility, - colonoscopy negative to hepatic flexure - diarrhea - presumed TF related - abnormal LFT - ? etiology --> HIDA negative and CT negative - Anemia - leukocytosis - stool OB (+) - EGD --> gastritis - Renal failure - Anasarca - resp failure, trach - b/l pleural effusions - dysphagia, GT - encephalopathy, contracted - poor px Recommendations - continue TF - Off of Statin - ? thoracentesis - rectal tube - roll side to side as feasible (hard due to severe contractions) - Elevate HOB - f/u labs - PPI - abx - supportive care Subjective Allergies: Coded Allergies: No Known Allergies (Unverified , 06/10/19) Subjective above noted NAD on TF thick liquid stool in rectal tube Objective Last 24 Hour Vital Signs Date Time Temp Pulse Resp B/P (MAP) Pulse Ox O2 Delivery O2 Flow Rate FiO2 10/12/19 08:44 98.2 77 15 142/68 (92) 100 15 10/12/19 08:42 71 16 24 10/12/19 08:00 86 10/12/19 08:00 Mechanical Ventilator 10/12/19 08:00 24 10/12/19 07:26 76 15 24 10/12/19 04:46 79 16 24 10/12/19 04:00 98.2 79 17 143/57 (85) 100 10/12/19 04:00 24 10/12/19 04:00 78 10/12/19 04:00 Mechanical Ventilator 10/12/19 03:04 77 18 24 10/12/19 00:53 73 12 24 10/12/19 00:00 74 10/12/19 00:00 Mechanical Ventilator 10/12/19 00:00 97.2 71 17 129/59 (82) 100 10/11/19 22:46 72 18 24 10/11/19 21:00 71 15 24 10/11/19 20:27 75 130/55 10/11/19 20:00 71 10/11/19 20:00 97.7 75 17 130/55 (80) 100 10/11/19 20:00 24 10/11/19 20:00 Mechanical Ventilator 10/11/19 18:44 72 15 24 10/11/19 17:17 68 13 24 10/11/19 16:00 98.2 70 16 131/55 (80) 100 10/11/19 16:00 Mechanical Ventilator 10/11/19 16:00 24 10/11/19 16:00 73 10/11/19 14:49 74 20 24 10/11/19 13:23 65 20 24 10/11/19 12:00 24 10/11/19 12:00 97.5 66 15 140/64 (89) 100 10/11/19 12:00 65 10/11/19 12:00 Mechanical Ventilator 10/11/19 11:40 65 10/11/19 10:58 63 12 24 10/11/19 09:16 81 18 24 Intake and Output 10/11/19 10/12/19 19:00 07:00 Intake Total 410 ml 600 ml Output Total 100 ml 300 ml Balance 310 ml 300 ml Free Water 50 ml 150 ml Tube Feeding 360 ml 450 ml Stool Total 100 ml 300 ml Laboratory Tests 10/11/19 10:41: POC Whole Blood Glucose 112H 10/11/19 16:42: POC Whole Blood Glucose 140H 10/11/19 23:18: POC Whole Blood Glucose 167H 10/12/19 03:10: Sodium Level 132L, Potassium Level 4.2, Chloride Level 96L, Carbon Dioxide Level 24, Anion Gap 12, Blood Urea Nitrogen 64H, Creatinine 3.9H, Estimat Glomerular Filtration Rate 15.0, Glucose Level 154H, Calcium Level 9.2, Total Bilirubin 0.4, Aspartate Amino Transf (AST/SGOT) 98H, Alanine Aminotransferase ( ALT/SGPT) 116H, Alkaline Phosphatase 350H, Total Protein 9.0H, Albumin 2.5L, Globulin 6.5, Albumin/Globulin Ratio 0.4L 10/12/19 06:11: POC Whole Blood Glucose 184H Height (Feet): 5 Height (Inches): 10.00 Weight (Pounds): 123 Objective Debilitated AA man NCAT (+) trach coarse BS RR abd less distended, anasarca, (+) GT, (+) rectal tube ext contracted Ronny Mustafa MD Oct 12, 2019 09:07
[2019-10-12] MEDS: Zinc Oxide Oint 2oz TOPIC SCH ×2 (09:12→20:29)
[2019-10-12] MEDS: Lactobacillus-GG tablet GT SCH ×2 (09:12→20:29)
--- NOTE | 2019-10-12 09:20 | NUR ---
RD ASSESSMENT & RECOMMENDATIONS SEE CARE ACTIVITY FOR COMPLETE ASSESSMENT DAILY ESTIMATED NEEDS: Needs based on Renal, critical care, wound/ 61kg 22-30 kcals/kg [id number] total kcals 1.25-2 g protein/kg 76-122 g total protein Fluid per MD, now on HD NUTRITION DIAGNOSIS: * Swallowing difficulty R/T respiratory failure, dysphagia as evidenced by trach/vent dep, PEG dep * Increased kcal/prot needs R/T wound healing as evidenced by admitted w/ multiple pressure injuries including full thickness wounds at junction of Shaft of penis, dorsal scrotum, R elbow, and DTPI @ L buttocks. (CURRENT TF: Now NEPRO @45ml/hr x20 hrs) ENTERAL NUTRITION RECOMMENDATIONS: Nepro @45ml/hr x20 hrs + Prosource x1 qdaily to provide 900ml, 1620 kcal, 73g + 11g pro, 654 ml free H2O - Maintain Nepro @goal, as tolerated. - Add PROSOURCE qdaily (11g pro) to better meet est pro needs - Flush per MD/ HOB over 30 degrees. ADDITIONAL RECOMMENDATIONS: * Per SNF: HT=63" JI=465 lbs (vs EMR wt of 166lbs) -> obtain re-calibrated bedscale wt, rec daily wt monitoring * Wound healing: con't Nephrovite + Garo BID/ Vit C dosing per Nephro * Monitor renal fxn and lytes closely w/ non-renal TF (K=5.0, 5.5-> wnl) -> Rec increased insulin w/ BG labs (on peter q6) * Monitor BGs w/ noncarb controlled TF, need for long acting insulin * Monitor stool output, need to change TF again-> stool more pasty
--- NOTE | 2019-10-12 09:35 | NUR ---
Meds administered as tolerated. GT feed still on hold, but is patent and draining well. Oral care provided and tolerated well. Pt. turned and repositioned. Will continue to monitor.
--- NOTE | 2019-10-12 09:48 | Surgery Progress Note ---
Surgery Progress Note Subjective Procedure Performed Right femoral temporary hemodialysis catheter removal Additional Comments CT reviewed. unlikely sigmoid volvulus as having stool in rectal tube and similar to prior. likely colonic dysmotility exam otherwise stable labs reviewed Objective Last 24 Hour Vital Signs Date Time Temp Pulse Resp B/P (MAP) Pulse Ox O2 Delivery O2 Flow Rate FiO2 10/12/19 09:00 15 142/68 10/12/19 08:44 98.2 77 15 142/68 (92) 100 15 10/12/19 08:42 71 16 24 10/12/19 08:00 86 10/12/19 08:00 Mechanical Ventilator 10/12/19 08:00 24 10/12/19 07:26 76 15 24 10/12/19 04:46 79 16 24 10/12/19 04:00 98.2 79 17 143/57 (85) 100 10/12/19 04:00 24 10/12/19 04:00 78 10/12/19 04:00 Mechanical Ventilator 10/12/19 03:04 77 18 24 10/12/19 00:53 73 12 24 10/12/19 00:00 74 10/12/19 00:00 Mechanical Ventilator 10/12/19 00:00 97.2 71 17 129/59 (82) 100 10/11/19 22:46 72 18 24 10/11/19 21:00 71 15 24 10/11/19 20:27 75 130/55 10/11/19 20:00 71 10/11/19 20:00 97.7 75 17 130/55 (80) 100 10/11/19 20:00 24 10/11/19 20:00 Mechanical Ventilator 10/11/19 18:44 72 15 24 10/11/19 17:17 68 13 24 10/11/19 16:00 98.2 70 16 131/55 (80) 100 10/11/19 16:00 Mechanical Ventilator 10/11/19 16:00 24 10/11/19 16:00 73 10/11/19 14:49 74 20 24 10/11/19 13:23 65 20 24 10/11/19 12:00 24 10/11/19 12:00 97.5 66 15 140/64 (89) 100 10/11/19 12:00 65 10/11/19 12:00 Mechanical Ventilator 10/11/19 11:40 65 10/11/19 10:58 63 12 24 I&O Intake and Output 10/11/19 10/12/19 19:00 07:00 Intake Total 410 ml 600 ml Output Total 100 ml 300 ml Balance 310 ml 300 ml Free Water 50 ml 150 ml Tube Feeding 360 ml 450 ml Stool Total 100 ml 300 ml Dressing: other Wound: other Cardiovascular: RSR Respiratory: decreased breath sounds Abdomen: soft, distended, non-tender, decreased bowel sounds Extremities: no tenderness, no cyanosis Laboratory Tests Test 10/11/19 10:41 10/11/19 16:42 10/11/19 23:18 10/12/19 03:10 POC Whole Blood Glucose 112 MG/DL (74-106) H 140 MG/DL (74-106) H 167 MG/DL (74-106) H Sodium Level 132 MMOL/L (136-145) L Potassium Level 4.2 MMOL/L (3.5-5.1) Chloride Level 96 MMOL/L (98-107) L Carbon Dioxide Level 24 MMOL/L (21-32) Anion Gap 12 mmol/L (5-15) Blood Urea Nitrogen 64 mg/dL (7-18) H Creatinine 3.9 MG/DL (0.55-1.30) H Estimat Glomerular Filtration Rate 15.0 mL/min (>60) Glucose Level 154 MG/DL (74-106) H Calcium Level 9.2 MG/DL (8.5-10.1) Total Bilirubin 0.4 MG/DL (0.2-1.0) Aspartate Amino Transf (AST/SGOT) 98 U/L (15-37) H Alanine Aminotransferase (ALT/SGPT) 116 U/L (12-78) H Alkaline Phosphatase 350 U/L (46-116) H Total Protein 9.0 G/DL (6.4-8.2) H Albumin 2.5 G/DL (3.4-5.0) L Globulin 6.5 g/dL Albumin/Globulin Ratio 0.4 (1.0-2.7) L Test 10/12/19 06:11 POC Whole Blood Glucose 184 MG/DL (74-106) H Plan Problems: (1) Anemia (2) Hyponatremia (3) Leukocytosis Assessment & Plan: Tracheostomy, left chest pacemaker are again demonstrated. There is bilateral interstitial and airspace disease and bilateral pleural fluid again demonstrated. This appears more severe than on the prior study. Bilateral interstitial and airspace infiltrates versus edema. Bilateral pleural effusions Leukocytosis, anemia, tachycardia, abnormal labs. Wound evaluated and likely etiology of patient's sepsis. Leukocytosis etiology work-up antibiotics per infectious disease Appreciate nephrology input transfuse with dialysis We will follow with recommendations thank you allowing participation's care plan HD access temp HD discussed with medical teams line okay HD as per renal persistent leukocytosis flow cyto noted improving trending down right fem line removed wbc fluctuating h/h stable lft's elevated There is a right pleural effusion Gallbladder demonstrates tiny wall adherent nonmobile echogenic foci, some possible mural calcifications, and comet tail artifact in the anterior wall. Patient unable to report sonographic Kent's sign. Common bile duct measures 4 mm in diameter. No intrahepatic biliary ductal dilatation. Liver demonstrates normal echogenicity, no focal abnormality. There is some surface nodularity. Portal vein and hepatic veins are patent. Pancreas is incompletely visualized due to overlying bowel gas, visualized portions are unremarkable. Spleen is unremarkable. Left kidney measures 8.7 cm in length. Right kidney measures 8.9 cm length. Both kidneys demonstrate increased echogenicity. There is no hydronephrosis. No focal abnormality . Abdominal aorta is partially obscured by bowel gas, visualized portions are non-aneurysmal . A gastrostomy is noted Impression: Tiny wall adherent nonmobile gallbladder echogenic foci, may reflect wall adherent calculi, small polyps, and/or pleural calcifications. Anterior wall comet tail artifact suggests foci of adenomyomatosis. Normal caliber common bile duct Possible hepatic surface nodularity, could indicate cirrhotic change Echogenic kidneys, consistent with medical renal disease. No hydronephrosis Right pleural effusion Gastrostomy Note nonvisualization of portions of the pancreas and abdominal aorta HIDA NEGATIVE trend labs (4) Ventilator dependent (5) Right lower lobe pneumonia (6) Hypokalemia (7) Hyperkalemia (8) Anasarca (9) Decubitus skin ulcer Assessment & Plan: pt presented on admission with generalized edemae.Skin assessed under tracheostomy and no areas of concerns noted. GT Insertion is marginally erythematous with small amt slough at stoma. Unstageable Pressure Injury R elbow. Base of wound is 100% yellow slough, Borders are erythematous. Wound oozing small amt haemopurulent exudate.Darker skin tone without elevation in skin temp or erythema periwound. Pt's penis and scrotum are grossly edematous and enlarged and weeping serous exudate from numerous sites both from penis and scrotum. Two small open wounds noted at base of at base of shaft of penis ,and contreras aspect of scrotum. Both wounds oozing large amt sanguineous and serosanguineous exudate. Multiple open wounds with Biofilm at base of each wounds noted to contreras/lateral,inferior and posterior aspects of scrotum. These wounds noted to be oozing moderate amts of serosanguineous exudate. Hypertrophic scar with scattered areas of hyperpigmentation noted to Sacrum. DTPI noted to L Buttocks (L)7cm x (W)9cm. Base of wound is purple and indurated.Darker skin tone without erythema, induration or fluctuance R and L ischial tuberosities. Both heels are boggy with non-blanchable erythema. Tx.Plan: Cleanse wound R elbow with Saline. Apply TheraHoney, Apply Moisture Barrier Paste periwound. Cover with Optifoam drsg.Change Daily and prn. Wash GT site with soap and water.Pat dry. Apply Zinc Oxide Paste to GT site Daily. Leave Open to Air. Apply Zinc Oxide Paste to entire Scrotum, Place ABD pads to R and L lateral, and posterior aspects of scrotum TWICE daily. Apply Cavilon Skin Barrier to malleoli and both Heels. Cover each site with Optifoam drsgs. Change every 7 days and prn. Reposition at least every 2hours or as tolerated. Off-load heels with Pillows. APM/BECCA Mattress overlay. (10) Malnutrition Assessment & Plan: DAILY ESTIMATED NEEDS: Needs based on Renal, critical care, wound/ 61kg 22-30 kcals/kg 7619-1323 total kcals 1.25-2 g protein/kg 76-122 g total protein Fluid per MD, now on HD NUTRITION DIAGNOSIS: * Swallowing difficulty R/T respiratory failure, dysphagia as evidenced by trach/vent dep, PEG dep * Increased kcal/prot needs R/T wound healing as evidenced by admitted w/ multiple pressure injuries including full thickness wounds at junction of Shaft of penis, dorsal scrotum, R elbow, and DTPI @ L buttocks. CURRENT TF:Osmolite 1.2 @ 60ml/hr x 20 hrs + Garo BID ENTERAL NUTRITION RECOMMENDATIONS: Vital AF 1.2 @ 60ml/hr x 20 hrs to provide 1200ml, 1440kcal, 90g prot, 973ml free water * Rec 20 hr run time for GI rest. -> W/ improved GI status, rec Vital AF 1.2, an elemental and carb controlled TF -> monitor lytes and renal fxn closely, monitor need for renal TF -> TF @ goal will provide 1642mg K and 2025mg Phos -> HOB over 30 degrees/ water flush per -------- Trial of Osmolite 1.2 continue for now- Goal of 60ml/hr for 20 hrs (4 hrs bowel rest) to provide 1200ml, 1440 kcal, 67g pro, 984ml free H2O, -> Rec to add prosource 1 pack daily (11g pro) to better meet est pro needs. -> Monitor BG, K closely. Pt would require increased insulin coverage as TF at goal would provide 56g more carbs per day. ADDITIONAL RECOMMENDATIONS: * Per SNF: HT=63" NB=573 lbs (vs EMR wt of 166lbs) -> obtain re-calibrated bedscale wt, rec daily wt monitoring * Wound healing: con't Nephrovite + Garo BID/ Vit C dosing per Nephro * Monitor renal fxn and lytes closely w/ non-renal TF ->K low, phos wnl;updated mag level; rec increased insulin w/ BG labs * Daily wts w/ drop to 118-20 lbs, rec to recalibrate for accurate CBW * Consider DC Miralax if medically appropriate: +rectal tube (11) Uremia (12) CKD (chronic kidney disease) stage 5, GFR less than 15 ml/min (13) Colon distention Assessment & Plan: discussed with GI likely functional as having lots of loose bm rectal tube kub f/u s/p colonoscopy - findings reviewed with GI improved cont diet as tolerated Marked distention of the sigmoid colon. 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 No evidence of bowel wall thickening or pneumatosis 12 mm focus of contrast enhancement in the right pectineus muscle. While nonspecific in appearance, appearance raises concern for a possible pseudoaneurysm. Ill- defined thickening of the pectus medius muscle could indicate some intramuscular hemorrhage. The above findings were phoned to Dr. Urias at the time of interpretation Large bilateral pleural effusions Hazy pulmonary parenchymal opacities as well as dense consolidative opacities most likely represent pulmonary edema, but could represent pneumonia Evidence of anasarca elsewhere, with generalized edema of the subcutaneous fat Bladder wall thickening, raises concern for cystitis. Avalos catheter in place Colonic diverticulosis. No evidence of diverticulitis. Tracheostomy Pacemaker Gastrostomy Gastrostomy again demonstrated in satisfactory position. The stomach is otherwise unremarkable. The distal esophagus and duodenum are unremarkable. Ingested contrast reaches the colon. No small bowel distention or small bowel wall thickening. Interim placement of a rectal tube. There are a few colonic diverticula. No definite evidence of acute diverticulitis. The appendix is prominent in caliber, as previously No free or loculated intraperitoneal gas or fluid is evident. Again demonstrated is marked gaseous distention of the sigmoid colon which measures up to 12.6 cm in diameter, with the proximal aspect located laterally to the distal aspect, and caliber transition in the mesenteric root of both entry points. However, there is stool within the proximal portion which appears to be at least partially contrast opacified, and no definite persisting of the vascular pedicle demonstrated. The liver, gallbladder, bile ducts, pancreas, spleen, adrenals, kidneys are unremarkable. There are accessory splenules demonstrated. No retroperitoneal or mesenteric mass or adenopathy. No pelvic mass or adenopathy. The prostate is enlarged and protrudes into the inferior bladder. The bladder is thick-walled. Previously demonstrated Avalos catheter has been removed. Again demonstrated is a large right pleural effusion and a moderate to large left pleural effusion. Again demonstrated are compressive atelectatic changes of significant portions of both lower lobes. Pacemaker wires are seen within the heart. Previously demonstrated high attenuation focus within the right pectineus muscle is not evident. However, there is a low-attenuation area which measures 2 cm diameter centrally which is not evident previously. There is diffuse edema of the subcutaneous fat. This is less severe than was demonstrated previously. There are degenerative proliferative changes of the lumbar spine. Impression: Abnormal configuration of the sigmoid colon, with marked distention of a sigmoid, inversion of the relationships of the proximal and descending colon, and evidence of immediately apposed transition point raises concern for sigmoid volvulus. However, similarity to the prior exam, presence of what appears to be contrast opacified stool within the dilated segment, and lack of evidence of twisting of the vascular pedicle raises the possibility that this is baseline for this patient or possibly dysfunctional in nature. Correlate with clinical findings Enlarged prostate with protrusion into the bladder floor. Bladder neoplasm not completely excludable as a result Thick-walled bladder, may indicate cystitis or be due to chronic bladder lumen obstruction related to the above Abnormalities right pectineus muscle, with a 2 cm central low attenuation area. Note that previous exam have a high attenuation focus suspicious for a small pseudoaneurysm. 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 Colonic diverticulosis. No evidence of diverticulitis Gastrostomy in good position Rectal tube in good position Large right and moderate to large left pleural effusions. Resultant compressive pulmonary atelectatic changes or graft edema subcutaneous fat, less severe than was demonstrated on prior 08/17/2019 exam. Jonathan Urias Oct 12, 2019 09:48
--- NOTE | 2019-10-12 10:00 | NUR ---
GT feeding resumed. GT patent and draining well.
--- NOTE | 2019-10-12 10:45 | NUR ---
NURSE NOTES:REPORT GIVEN TO CHANCE DAVEY STAFF OF DAY SERVICES ACCOUNT MANAGER. WILL CONT TO MONITOR.
--- NOTE | 2019-10-12 10:50 | Infectious Diseases Prog Note ---
Assessment/Plan Assessment/Plan A: 1. Pneumonia with Acinetobacter & Proteus treated COVID19 X2 : negative 2. ESRD on HD 3. Leukocytosis 4. Respiratory failure, Ventilator dependent 5. Anemia 6. Elevated transaminase 7. 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 Klebsiella catheter infection s/p removal 10. Diarrhea, C. difficile negative PLAN: 1. Observe off of antibiotic 2. case was D/W wound care nurse Subjective ROS Limited/Unobtainable: Yes Constitutional: Denies: fever Allergies: Coded Allergies: No Known Allergies (Unverified , 06/10/19) Objective Last 24 Hour Vital Signs Date Time Temp Pulse Resp B/P (MAP) Pulse Ox O2 Delivery O2 Flow Rate FiO2 10/12/19 09:00 15 142/68 10/12/19 08:44 98.2 77 15 142/68 (92) 100 15 10/12/19 08:42 71 16 24 10/12/19 08:00 86 10/12/19 08:00 Mechanical Ventilator 10/12/19 08:00 24 10/12/19 07:26 76 15 24 10/12/19 04:46 79 16 24 10/12/19 04:00 98.2 79 17 143/57 (85) 100 10/12/19 04:00 24 10/12/19 04:00 78 10/12/19 04:00 Mechanical Ventilator 10/12/19 03:04 77 18 24 10/12/19 00:53 73 12 24 10/12/19 00:00 74 10/12/19 00:00 Mechanical Ventilator 10/12/19 00:00 97.2 71 17 129/59 (82) 100 10/11/19 22:46 72 18 24 10/11/19 21:00 71 15 24 10/11/19 20:27 75 130/55 10/11/19 20:00 71 10/11/19 20:00 97.7 75 17 130/55 (80) 100 10/11/19 20:00 24 10/11/19 20:00 Mechanical Ventilator 10/11/19 18:44 72 15 24 10/11/19 17:17 68 13 24 10/11/19 16:00 98.2 70 16 131/55 (80) 100 10/11/19 16:00 Mechanical Ventilator 10/11/19 16:00 24 10/11/19 16:00 73 9/2/20 14:49 74 20 24 10/11/19 13:23 65 20 24 10/11/19 12:00 24 10/11/19 12:00 97.5 66 15 140/64 (89) 100 10/11/19 12:00 65 10/11/19 12:00 Mechanical Ventilator 10/11/19 11:40 65 10/11/19 10:58 63 12 24 Height (Feet): 5 Height (Inches): 10.00 Weight (Pounds): 123 HEENT: mucous membranes moist, status post trach Respiratory/Chest: rhonchi - bilaterally, other - on ventilator Cardiovascular: normal rate Abdomen: soft, non tender, other - GT feeding Extremities: no edema Skin: other - scotal skin lesion Neurologic/Psychiatric: aphasia, other - opens eyes Laboratory Tests Test 10/11/19 16:42 10/11/19 23:18 10/12/19 03:10 10/12/19 06:11 POC Whole Blood Glucose 140 MG/DL (74-106) H 167 MG/DL (74-106) H 184 MG/DL (74-106) H Sodium Level 132 MMOL/L (136-145) L Potassium Level 4.2 MMOL/L (3.5-5.1) Chloride Level 96 MMOL/L (98-107) L Carbon Dioxide Level 24 MMOL/L (21-32) Anion Gap 12 mmol/L (5-15) Blood Urea Nitrogen 64 mg/dL (7-18) H Creatinine 3.9 MG/DL (0.55-1.30) H Estimat Glomerular Filtration Rate 15.0 mL/min (>60) Glucose Level 154 MG/DL (74-106) H Calcium Level 9.2 MG/DL (8.5-10.1) Total Bilirubin 0.4 MG/DL (0.2-1.0) Aspartate Amino Transf (AST/SGOT) 98 U/L (15-37) H Alanine Aminotransferase (ALT/SGPT) 116 U/L (12-78) H Alkaline Phosphatase 350 U/L (46-116) H Total Protein 9.0 G/DL (6.4-8.2) H Albumin 2.5 G/DL (3.4-5.0) L Globulin 6.5 g/dL Albumin/Globulin Ratio 0.4 (1.0-2.7) L Current Medications Medications (Trade) Dose Ordered Sig/Leonel Route PRN Reason Start Time Stop Time Status Last Admin Dose Admin Acetaminophen (Tylenol) 650 mg Q4H PRN GT Mild Pain (Pain Scale 1-3) 09/21/19 12:45 10/21/19 12:44 10/07/19 23:28 Barium Sulfate (Readi-Cat 2) 450 ml NOW PRN ORAL Radiology Procedure 10/10/19 21:00 10/12/19 20:54 Chlorhexidine Gluconate (Felipa-Hex 2%) 1 applic DAILY@1999 TOPIC 09/12/19 20:00 12/11/19 19:59 10/11/19 20:27 Clonidine HCl (Catapres Tab) 0.1 mg Q4H PRN GT For High Blood Pressure 09/09/19 12:30 12/08/19 05:29 09/15/19 04:10 Dextrose (Dextrose 50%) 25 ml Q30M PRN IV Hypoglycemia 08/09/19 07:30 11/07/19 07:29 Dextrose (Dextrose 50%) 50 ml Q30M PRN IV Hypoglycemia 08/09/19 07:30 11/07/19 07:29 Diphenoxylate HCl/ Atropine (Lomotil) 2.5 mg QID PRN ORAL Diarrhea 09/24/19 08:45 10/24/19 08:44 Epoetin Andreas (Epoetin Andreas(ESRD on dialysis)) 10,000 unit WED-WED-WED SUBQ 10/09/19 21:00 01/07/20 20:59 10/11/19 21:32 Famotidine (Pepcid) 20 mg DAILY GT 08/30/19 09:00 11/28/19 08:59 10/12/19 09:12 Insulin Aspart (NovoLOG) Q6HR SUBQ 09/25/19 18:00 11/07/19 11:29 10/12/19 06:17 Iohexol (OMNIPAQUE-300 100ml) 100 ml NOW PRN INJ Radiology Procedure 10/10/19 21:00 10/12/19 20:54 Lactobacillus Acidophilus (Culturelle) 1 tab EVERY 12 HOURS GT 10/03/19 21:00 12/13/19 17:59 10/12/19 09:12 Metoprolol Tartrate (Lopressor) 200 mg Q12HR GT 08/09/19 09:00 11/07/19 08:59 10/11/19 20:27 Minoxidil (Loniten) 5 mg DAILY GT 08/09/19 09:00 11/07/19 08:59 10/11/19 08:09 Zinc Oxide (Zinc Oxide) 1 applic EVERY 12 HOURS TOPIC 10/03/19 09:00 11/08/19 17:59 10/12/19 09:12 Real De Leon MD Oct 12, 2019 10:50
[2019-10-12 12:00] VITALS: BP 101/60
[2019-10-12] MEDS ORDERED: NS 275ml ONE (14:48)
[2019-10-12 16:00] VITALS: BP 127/54
--- NOTE | 2019-10-12 19:20 | NUR ---
NURSE HAND-OFF REPORT: Important Events on Shift: Patient Status: Stable Diet: Nepro 45 ml/hr Pending Orders: None Pending Results/Labs:None Pending MD notification:None Latest Vital Signs: Temperature 97.7 , Pulse 82 , B/P 127 /54 , Respiratory Rate 15 , O2 SAT 100 , Mechanical Ventilator, O2 Flow Rate 15.0 . Vital Sign Comment: Stable EKG Rhythm: V-Paced Rhythm change?: N MD Notified?: N - MD Response: Latest Delacruz Fall Score: 70 Fall Risk: High Risk Safety Measures: Call light Within Reach, Bed Alarm Zone 1, Side Rails Side Rails x3, Bed position Low and Locked. Fall Precautions: Yellow Socks Report given to TAMICA Villanueva.
--- NOTE | 2019-10-12 19:21 | NUR ---
NURSE NOTES: received pt from Srinivas DAVEY., pt is obtunded and opens eye at this time. gtube site intact, clean, and patent. rectal tube in place, draining well with gravity, no leaking noted. left hand 22g SL. bed at the lowest position, alarmed, and locked. calll light within reach. will continue to monitor pt with plan of care.
[2019-10-12 20:00] VITALS: BP 103/60
[2019-10-12] MEDS: Dyna-Hex 2% Top Sol 2oz TOPIC SCH (20:29)
[2019-10-13] VITALS: BP 129/71
--- NOTE | 2019-10-13 01:50 | NUR ---
NURSE NOTES: cleaned pt,new gown provided. oral care given. call light within reach.
--- NOTE | 2019-10-13 02:00 | NUR ---
NURSE NOTES: repositioned pt Q2hrs. pt shows no SOB at this time,no active bleeding noted. call light within reach. will continue to monitor pt.
[2019-10-13 04:00] VITALS: BP 117/56
[2019-10-13] MEDS: NovoLOG Insulin Flexpen SUBQ SCH ×3 (05:10→17:35)
[2019-10-13 05:23] LABS: BASOPHILS % (AUTO) 0.6 % (0.0-2.0); EOSINOPHILS % (AUTO) 5.6 % (0.0-3.0); HEMOGLOBIN 8.9 G/DL (14.2-18.0); LYMPHOCYTES % (AUTO) 13.1 % (20.0-45.0); MEAN CORPUSCULAR VOLUME 79 FL (80-99); MONOCYTES % (AUTO) 8.5 % (1.0-10.0); NEUTROPHILS % (AUTO) 72.2 % (45.0-75.0); PLATELET COUNT 620 K/UL (150-450); RED BLOOD COUNT 3.65 M/UL (4.70-6.10); RED CELL DISTRIBUTION WIDTH 16.7 % (11.6-14.8)
[2019-10-13 05:37] LABS: ANION GAP 10 mmol/L (5-15); BLOOD UREA NITROGEN 37 mg/dL (7-18); CALCIUM 9.2 MG/DL (8.5-10.1); CARBON DIOXIDE 26 MMOL/L (21-32); CHLORIDE 99 MMOL/L (98-107); CREATININE 2.6 MG/DL (0.55-1.30); POTASSIUM 3.5 MMOL/L (3.5-5.1); SODIUM 135 MMOL/L (136-145)
--- NOTE | 2019-10-13 07:16 | NUR ---
NURSE HAND-OFF REPORT: Important Events on Shift:HD 2.4 L out on 9.3 Patient Status: stable, full code Diet: nephro 1.8 Pending Orders: n.a Pending Results/Labs:n/a Pending MD notification:n.a Latest Vital Signs: Temperature 98.6 , Pulse 81 , B/P 117 /56 , Respiratory Rate 20 , O2 SAT 99 , Mechanical Ventilator, O2 Flow Rate 15.0 . Vital Sign Comment: stable EKG Rhythm: SR w/ BBB,V- paced Rhythm change?: N MD Notified?: N - MD Response: Latest Delacruz Fall Score: 70 Fall Risk: High Risk Safety Measures: Call light Within Reach, Bed Alarm Zone 1, Side Rails Side Rails x3, Bed position Low and Locked. Fall Precautions: Yellow Socks Report given to Srinivas DAVEY.
--- NOTE | 2019-10-13 07:25 | NUR ---
NURSE NOTES: Received report from Ana Davis RN. Patient is resting in bed, in stable condition. No s/sx of SOB, breathing is even and unlabored, vent settings are as ordered. Patient is nonverbal, observed no presence of pain or discomfort at this time. Bed is in low position, brakes engaged. Call light is kept within easy reach. Will continue to monitor patient.
[2019-10-13 08:00] VITALS: BP 106/44
[2019-10-13] MEDS: Minoxidil 2.5mg tab GT SCH (08:07)
[2019-10-13] MEDS: Metoprolol Tartrate 100mg tab GT SCH ×2 (08:13→20:40)
[2019-10-13] MEDS: Lactobacillus-GG tablet GT SCH ×2 (08:13→20:41)
[2019-10-13] MEDS: Zinc Oxide Oint 2oz TOPIC SCH ×2 (08:14→20:42)
--- NOTE | 2019-10-13 09:33 | General Progress Note ---
Assessment/Plan Assessment/Plan: IMPRESSION: 1. anemia. 2. fevers improved 3. Leukocytosis. 4. hypotension 5. Acute on chronic renal failure. 6. Hyponatremia. 7. Severe protein-calorie malnutrition. 8. Significantly elevated C-reactive protein concerning for infectious etiology. 9. Tracheostomy, G-tube. 10. Ventilator dependence. 11. anasarca 12. Hematuria 13. V pacing 14. hyponatremia 15. transaminitis, HIDA negative PLAN chronic care; unable to place care noted may need CT on vent/ no wean monitor labs and optimize ID follow up dialysis ongoing prognosis poor for recovery impression, plan, and exam edited and reviewed in detail care discussed with RN Subjective Allergies: Coded Allergies: No Known Allergies (Unverified , 06/10/19) Subjective remains ill on vent/ no change on HD vitals noted Objective Last 24 Hour Vital Signs Date Time Temp Pulse Resp B/P (MAP) Pulse Ox O2 Delivery O2 Flow Rate FiO2 10/13/19 08:13 103 106/44 10/13/19 08:07 106/44 10/13/19 08:00 98.6 103 20 106/44 (64) 99 10/13/19 07:20 103 14 24 10/13/19 05:03 81 20 24 10/13/19 04:00 98.6 97 20 117/56 (76) 99 10/13/19 04:00 92 10/13/19 04:00 24 10/13/19 04:00 Mechanical Ventilator 10/13/19 02:48 92 24 24 10/13/19 00:36 82 18 24 10/13/19 00:00 98.6 82 18 129/71 (90) 99 10/13/19 00:00 82 10/13/19 00:00 Mechanical Ventilator 10/12/19 22:46 85 17 24 10/12/19 21:00 70 100/59 10/12/19 20:48 82 17 24 10/12/19 20:00 83 10/12/19 20:00 24 10/12/19 20:00 Mechanical Ventilator 10/12/19 20:00 97.0 83 18 103/60 (74) 100 10/12/19 18:53 82 15 24 10/12/19 16:00 77 10/12/19 16:00 24 10/12/19 16:00 97.7 75 15 127/54 (78) 100 17 10/12/19 16:00 Mechanical Ventilator 10/12/19 12:01 68 10/12/19 12:00 24 10/12/19 12:00 98.2 98 15 101/60 (74) 100 17 10/12/19 12:00 Mechanical Ventilator 10/12/19 11:19 75 16 24 Intake and Output 10/12/19 10/13/19 19:00 07:00 Intake Total 770 ml 585 ml Output Total 4800 ml 70 ml Balance -4030 ml 515 ml Free Water 230 ml 90 ml Tube Feeding 540 ml 495 ml Stool Total 70 ml Hemodialysis UF 2400 ml Other 2400 ml Laboratory Tests 10/12/19 12:08: POC Whole Blood Glucose 103 10/13/19 03:15: White Blood Count 15.0H, Red Blood Count 3.65L, Hemoglobin 8.9L, Hematocrit 29.0L, Mean Corpuscular Volume 79L, Mean Corpuscular Hemoglobin 24.3L, Mean Corpuscular Hemoglobin Concent 30.6L, Red Cell Distribution Width 16.7H, Platelet Count 620H, Mean Platelet Volume 6.1L, Neutrophils (%) (Auto) 72.2, Lymphocytes (%) (Auto) 13.1L, Monocytes (%) (Auto) 8.5, Eosinophils (%) (Auto) 5.6H, Basophils (%) (Auto) 0.6, Sodium Level 135L, Potassium Level 3.5, Chloride Level 99, Carbon Dioxide Level 26, Anion Gap 10, Blood Urea Nitrogen 37H, Creatinine 2.6H, Estimat Glomerular Filtration Rate 24.0, Glucose Level 144H, Calcium Level 9.2 Height (Feet): 5 Height (Inches): 10.00 Weight (Pounds): 123 Objective GENERAL: Ill-appearing male, chronically debilitated. HEENT: Tracheostomy in midline. Questionable fullness in the submandibular region. LUNGS: Coarse breath sounds. reduced breath sounds CARDIAC: S1, S2. Regular rate and rhythm. ABDOMEN: Soft. G-tube. EXTREMITIES: With noted edema. NEUROLOGICAL: Poorly responsive, weak diffusely. Kain Ramirez MD Oct 13, 2019 09:33
--- NOTE | 2019-10-13 10:20 | Infectious Diseases Prog Note ---
"Assessment/Plan Assessment/Plan antibiotics : none A 1. acenitobacter | proteus pneumonia s/p rx 2. respiratory failure 3. leucocytosis 4. COVID 19 test negative x 2 5. renal failure on HD P 1. continue off antibiotics 2. will follow up cultures Subjective ROS Limited/Unobtainable: Yes Allergies: Coded Allergies: No Known Allergies (Unverified , 06/10/19) Objective Last 24 Hour Vital Signs Date Time Temp Pulse Resp B/P (MAP) Pulse Ox O2 Delivery O2 Flow Rate FiO2 10/13/19 09:00 89 15 24 10/13/19 08:13 103 106/44 10/13/19 08:07 106/44 10/13/19 08:00 Mechanical Ventilator 10/13/19 08:00 24 10/13/19 08:00 98.6 103 20 106/44 (64) 99 10/13/19 07:20 103 14 24 10/13/19 05:03 81 20 24 10/13/19 04:00 98.6 97 20 117/56 (76) 99 10/13/19 04:00 92 10/13/19 04:00 24 10/13/19 04:00 Mechanical Ventilator 10/13/19 02:48 92 24 24 10/13/19 00:36 82 18 24 10/13/19 00:00 98.6 82 18 129/71 (90) 99 10/13/19 00:00 82 10/13/19 00:00 Mechanical Ventilator 10/12/19 22:46 85 17 24 10/12/19 21:00 70 100/59 10/12/19 20:48 82 17 24 10/12/19 20:00 83 10/12/19 20:00 24 10/12/19 20:00 Mechanical Ventilator 10/12/19 20:00 97.0 83 18 103/60 (74) 100 10/12/19 18:53 82 15 24 10/12/19 16:00 77 10/12/19 16:00 24 10/12/19 16:00 97.7 75 15 127/54 (78) 100 17 10/12/19 16:00 Mechanical Ventilator 10/12/19 12:01 68 10/12/19 12:00 24 10/12/19 12:00 98.2 98 15 101/60 (74) 100 17 10/12/19 12:00 Mechanical Ventilator 10/12/19 11:19 75 16 24 Height (Feet): 5 Height (Inches): 10.00 Weight (Pounds): 123 HEENT: status post trach Respiratory/Chest: lungs clear Cardiovascular: normal rate, regular rhythm, no gallop/murmur Abdomen: soft, non tender, other - GT Extremities: no edema, other - right subclavian catheter Laboratory Tests Test 10/12/19 12:08 10/13/19 03:15 POC Whole Blood Glucose 103 MG/DL (74-106) White Blood Count 15.0 K/UL (4.8-10.8) H Red Blood Count 3.65 M/UL (4.70-6.10) L Hemoglobin 8.9 G/DL (14.2-18.0) L Hematocrit 29.0 % (42.0-52.0) L Mean Corpuscular Volume 79 FL (80-99) L Mean Corpuscular Hemoglobin 24.3 PG (27.0-31.0) L Mean Corpuscular Hemoglobin Concent 30.6 G/DL (32.0-36.0) L Red Cell Distribution Width 16.7 % (11.6-14.8) H Platelet Count 620 K/UL (150-450) H Mean Platelet Volume 6.1 FL (6.5-10.1) L Neutrophils (%) (Auto) 72.2 % (45.0-75.0) Lymphocytes (%) (Auto) 13.1 % (20.0-45.0) L Monocytes (%) (Auto) 8.5 % (1.0-10.0) Eosinophils (%) (Auto) 5.6 % (0.0-3.0) H Basophils (%) (Auto) 0.6 % (0.0-2.0) Sodium Level 135 MMOL/L (136-145) L Potassium Level 3.5 MMOL/L (3.5-5.1) Chloride Level 99 MMOL/L (98-107) Carbon Dioxide Level 26 MMOL/L (21-32) Anion Gap 10 mmol/L (5-15) Blood Urea Nitrogen 37 mg/dL (7-18) H Creatinine 2.6 MG/DL (0.55-1.30) H Estimat Glomerular Filtration Rate 24.0 mL/min (>60) Glucose Level 144 MG/DL (74-106) H Calcium Level 9.2 MG/DL (8.5-10.1) Current Medications Medications (Trade) Dose Ordered Sig/Leonel Route PRN Reason Start Time Stop Time Status Last Admin Dose Admin Acetaminophen (Tylenol) 650 mg Q4H PRN GT Mild Pain (Pain Scale 1-3) 09/21/19 12:45 10/21/19 12:44 10/07/19 23:28 Chlorhexidine Gluconate (Felipa-Hex 2%) 1 applic DAILY@1999 TOPIC 09/12/19 20:00 12/11/19 19:59 10/12/19 20:29 Clonidine HCl (Catapres Tab) 0.1 mg Q4H PRN GT For High Blood Pressure 09/09/19 12:30 12/08/19 05:29 09/15/19 04:10 Dextrose (Dextrose 50%) 25 ml Q30M PRN IV Hypoglycemia 08/09/19 07:30 11/07/19 07:29 Dextrose (Dextrose 50%) 50 ml Q30M PRN IV Hypoglycemia 08/09/19 07:30 11/07/19 07:29 Diphenoxylate HCl/ Atropine (Lomotil) 2.5 mg QID PRN ORAL Diarrhea 09/24/19 08:45 10/24/19 08:44 Epoetin Andreas (Epoetin Andreas(ESRD on dialysis)) 10,000 unit WED-WED-WED SUBQ 10/09/19 21:00 01/07/20 20:59 10/11/19 21:32 Famotidine (Pepcid) 20 mg DAILY GT 08/30/19 09:00 11/28/19 08:59 10/13/19 08:13 Insulin Aspart (NovoLOG) Q6HR SUBQ 09/25/19 18:00 11/07/19 11:29 10/13/19 05:10 Lactobacillus Acidophilus (Culturelle) 1 tab EVERY 12 HOURS GT 10/03/19 21:00 12/13/19 17:59 10/13/19 08:13 Metoprolol Tartrate (Lopressor) 200 mg Q12HR GT 08/09/19 09:00 11/07/19 08:59 10/13/19 08:13 Minoxidil (Loniten) 5 mg DAILY GT 08/09/19 09:00 11/07/19 08:59 10/11/19 08:09 Zinc Oxide (Zinc Oxide) 1 applic EVERY 12 HOURS TOPIC 10/03/19 09:00 11/08/19 17:59 10/13/19 08:14 Farnaz Lyle MD Oct 13, 2019 10:20"
[2019-10-13 12:00] VITALS: BP 102/57
--- NOTE | 2019-10-13 12:42 | Surgery Progress Note ---
Surgery Progress Note Subjective Procedure Performed Right femoral temporary hemodialysis catheter removal Additional Comments no acute events Objective Last 24 Hour Vital Signs Date Time Temp Pulse Resp B/P (MAP) Pulse Ox O2 Delivery O2 Flow Rate FiO2 10/13/19 12:00 24 10/13/19 12:00 Mechanical Ventilator 10/13/19 11:00 89 15 24 10/13/19 09:00 89 15 24 10/13/19 08:13 103 106/44 10/13/19 08:07 106/44 10/13/19 08:00 Mechanical Ventilator 10/13/19 08:00 24 10/13/19 08:00 98.6 103 20 106/44 (64) 99 10/13/19 07:40 105 10/13/19 07:20 103 14 24 10/13/19 05:03 81 20 24 10/13/19 04:00 98.6 97 20 117/56 (76) 99 10/13/19 04:00 92 10/13/19 04:00 24 10/13/19 04:00 Mechanical Ventilator 10/13/19 02:48 92 24 24 10/13/19 00:36 82 18 24 10/13/19 00:00 98.6 82 18 129/71 (90) 99 10/13/19 00:00 82 10/13/19 00:00 Mechanical Ventilator 10/12/19 22:46 85 17 24 10/12/19 21:00 70 100/59 10/12/19 20:48 82 17 24 10/12/19 20:00 83 10/12/19 20:00 24 10/12/19 20:00 Mechanical Ventilator 10/12/19 20:00 97.0 83 18 103/60 (74) 100 10/12/19 18:53 82 15 24 10/12/19 16:00 77 10/12/19 16:00 24 10/12/19 16:00 97.7 75 15 127/54 (78) 100 17 10/12/19 16:00 Mechanical Ventilator I&O Intake and Output 10/12/19 10/13/19 19:00 07:00 Intake Total 770 ml 585 ml Output Total 4800 ml 70 ml Balance -4030 ml 515 ml Free Water 230 ml 90 ml Tube Feeding 540 ml 495 ml Stool Total 70 ml Hemodialysis UF 2400 ml Other 2400 ml Dressing: other Wound: other Cardiovascular: RSR Respiratory: decreased breath sounds Abdomen: soft, non-tender, present bowel sounds Extremities: no cyanosis Laboratory Tests Test 10/13/19 03:15 White Blood Count 15.0 K/UL (4.8-10.8) H Red Blood Count 3.65 M/UL (4.70-6.10) L Hemoglobin 8.9 G/DL (14.2-18.0) L Hematocrit 29.0 % (42.0-52.0) L Mean Corpuscular Volume 79 FL (80-99) L Mean Corpuscular Hemoglobin 24.3 PG (27.0-31.0) L Mean Corpuscular Hemoglobin Concent 30.6 G/DL (32.0-36.0) L Red Cell Distribution Width 16.7 % (11.6-14.8) H Platelet Count 620 K/UL (150-450) H Mean Platelet Volume 6.1 FL (6.5-10.1) L Neutrophils (%) (Auto) 72.2 % (45.0-75.0) Lymphocytes (%) (Auto) 13.1 % (20.0-45.0) L Monocytes (%) (Auto) 8.5 % (1.0-10.0) Eosinophils (%) (Auto) 5.6 % (0.0-3.0) H Basophils (%) (Auto) 0.6 % (0.0-2.0) Sodium Level 135 MMOL/L (136-145) L Potassium Level 3.5 MMOL/L (3.5-5.1) Chloride Level 99 MMOL/L (98-107) Carbon Dioxide Level 26 MMOL/L (21-32) Anion Gap 10 mmol/L (5-15) Blood Urea Nitrogen 37 mg/dL (7-18) H Creatinine 2.6 MG/DL (0.55-1.30) H Estimat Glomerular Filtration Rate 24.0 mL/min (>60) Glucose Level 144 MG/DL (74-106) H Calcium Level 9.2 MG/DL (8.5-10.1) Plan Problems: (1) Anemia (2) Hyponatremia (3) Leukocytosis Assessment & Plan: Tracheostomy, left chest pacemaker are again demonstrated. There is bilateral interstitial and airspace disease and bilateral pleural fluid again demonstrated. This appears more severe than on the prior study. Bilateral interstitial and airspace infiltrates versus edema. Bilateral pleural effusions Leukocytosis, anemia, tachycardia, abnormal labs. Wound evaluated and likely etiology of patient's sepsis. Leukocytosis etiology work-up antibiotics per infectious disease Appreciate nephrology input transfuse with dialysis We will follow with recommendations thank you allowing participation's care plan HD access temp HD discussed with medical teams line okay HD as per renal persistent leukocytosis flow cyto noted improving trending down right fem line removed wbc fluctuating h/h stable lft's elevated There is a right pleural effusion Gallbladder demonstrates tiny wall adherent nonmobile echogenic foci, some possible mural calcifications, and comet tail artifact in the anterior wall. Patient unable to report sonographic Kent's sign. Common bile duct measures 4 mm in diameter. No intrahepatic biliary ductal dilatation. Liver demonstrates normal echogenicity, no focal abnormality. There is some surface nodularity. Portal vein and hepatic veins are patent. Pancreas is incompletely visualized due to overlying bowel gas, visualized portions are unremarkable. Spleen is unremarkable. Left kidney measures 8.7 cm in length. Right kidney measures 8.9 cm length. Both kidneys demonstrate increased echogenicity. There is no hydronephrosis. No focal abnormality . Abdominal aorta is partially obscured by bowel gas, visualized portions are non-aneurysmal . A gastrostomy is noted Impression: Tiny wall adherent nonmobile gallbladder echogenic foci, may reflect wall adherent calculi, small polyps, and/or pleural calcifications. Anterior wall comet tail artifact suggests foci of adenomyomatosis. Normal caliber common bile duct Possible hepatic surface nodularity, could indicate cirrhotic change Echogenic kidneys, consistent with medical renal disease. No hydronephrosis Right pleural effusion Gastrostomy Note nonvisualization of portions of the pancreas and abdominal aorta HIDA NEGATIVE trend labs (4) Ventilator dependent (5) Right lower lobe pneumonia (6) Hypokalemia (7) Hyperkalemia (8) Anasarca (9) Decubitus skin ulcer Assessment & Plan: pt presented on admission with generalized edemae.Skin assessed under tracheostomy and no areas of concerns noted. GT Insertion is marginally erythematous with small amt slough at stoma. Unstageable Pressure Injury R elbow. Base of wound is 100% yellow slough, Borders are erythematous. Wound oozing small amt haemopurulent exudate.Darker skin tone without elevation in skin temp or erythema periwound. Pt's penis and scrotum are grossly edematous and enlarged and weeping serous exudate from numerous sites both from penis and scrotum. Two small open wounds noted at base of at base of shaft of penis ,and contreras aspect of scrotum. Both wounds oozing large amt sanguineous and serosanguineous exudate. Multiple open wounds with Biofilm at base of each wounds noted to contreras/lateral,inferior and posterior aspects of scrotum. These wounds noted to be oozing moderate amts of serosanguineous exudate. Hypertrophic scar with scattered areas of hyperpigmentation noted to Sacrum. DTPI noted to L Buttocks (L)7cm x (W)9cm. Base of wound is purple and indurated.Darker skin tone without erythema, induration or fluctuance R and L ischial tuberosities. Both heels are boggy with non-blanchable erythema. Tx.Plan: Cleanse wound R elbow with Saline. Apply TheraHoney, Apply Moisture Barrier Paste periwound. Cover with Optifoam drsg.Change Daily and prn. Wash GT site with soap and water.Pat dry. Apply Zinc Oxide Paste to GT site Daily. Leave Open to Air. Apply Zinc Oxide Paste to entire Scrotum, Place ABD pads to R and L lateral, and posterior aspects of scrotum TWICE daily. Apply Cavilon Skin Barrier to malleoli and both Heels. Cover each site with Optifoam drsgs. Change every 7 days and prn. Reposition at least every 2hours or as tolerated. Off-load heels with Pillows. APM/BECCA Mattress overlay. (10) Malnutrition Assessment & Plan: DAILY ESTIMATED NEEDS: Needs based on Renal, critical care, wound/ 61kg 22-30 kcals/kg [id number] total kcals 1.25-2 g protein/kg 76-122 g total protein Fluid per MD, now on HD NUTRITION DIAGNOSIS: * Swallowing difficulty R/T respiratory failure, dysphagia as evidenced by trach/vent dep, PEG dep * Increased kcal/prot needs R/T wound healing as evidenced by admitted w/ multiple pressure injuries including full thickness wounds at junction of Shaft of penis, dorsal scrotum, R elbow, and DTPI @ L buttocks. CURRENT TF:Osmolite 1.2 @ 60ml/hr x 20 hrs + Garo BID ENTERAL NUTRITION RECOMMENDATIONS: Vital AF 1.2 @ 60ml/hr x 20 hrs to provide 1200ml, 1440kcal, 90g prot, 973ml free water * Rec 20 hr run time for GI rest. -> W/ improved GI status, rec Vital AF 1.2, an elemental and carb controlled TF -> monitor lytes and renal fxn closely, monitor need for renal TF -> TF @ goal will provide 1642mg K and 2025mg Phos -> HOB over 30 degrees/ water flush per MD -------- Trial of Osmolite 1.2 continue for now- Goal of 60ml/hr for 20 hrs (4 hrs bowel rest) to provide 1200ml, 1440 kcal, 67g pro, 984ml free H2O, -> Rec to add prosource 1 pack daily (11g pro) to better meet est pro needs. -> Monitor BG, K closely. Pt would require increased insulin coverage as TF at goal would provide 56g more carbs per day. ADDITIONAL RECOMMENDATIONS: * Per SNF: HT=63" CU=244 lbs (vs EMR wt of 166lbs) -> obtain re-calibrated bedscale wt, rec daily wt monitoring * Wound healing: con't Nephrovite + Garo BID/ Vit C dosing per Nephro * Monitor renal fxn and lytes closely w/ non-renal TF ->K low, phos wnl;updated mag level; rec increased insulin w/ BG labs * Daily wts w/ drop to 118-20 lbs, rec to recalibrate for accurate CBW * Consider DC Miralax if medically appropriate: +rectal tube (11) Uremia (12) CKD (chronic kidney disease) stage 5, GFR less than 15 ml/min (13) Colon distention Assessment & Plan: discussed with GI likely functional as having lots of loose bm rectal tube kub f/u s/p colonoscopy - findings reviewed with GI improved cont diet as tolerated Marked distention of the sigmoid colon. 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 No evidence of bowel wall thickening or pneumatosis 12 mm focus of contrast enhancement in the right pectineus muscle. While nonspecific in appearance, appearance raises concern for a possible pseudoaneurysm. Ill- defined thickening of the pectus medius muscle could indicate some intramuscular hemorrhage. The above findings were phoned to Dr. Urias at the time of interpretation Large bilateral pleural effusions Hazy pulmonary parenchymal opacities as well as dense consolidative opacities most likely represent pulmonary edema, but could represent pneumonia Evidence of anasarca elsewhere, with generalized edema of the subcutaneous fat Bladder wall thickening, raises concern for cystitis. Avalos catheter in place Colonic diverticulosis. No evidence of diverticulitis. Tracheostomy Pacemaker Gastrostomy Gastrostomy again demonstrated in satisfactory position. The stomach is otherwise unremarkable. The distal esophagus and duodenum are unremarkable. Ingested contrast reaches the colon. No small bowel distention or small bowel wall thickening. Interim placement of a rectal tube. There are a few colonic diverticula. No definite evidence of acute diverticulitis. The appendix is prominent in caliber, as previously No free or loculated intraperitoneal gas or fluid is evident. Again demonstrated is marked gaseous distention of the sigmoid colon which measures up to 12.6 cm in diameter, with the proximal aspect located laterally to the distal aspect, and caliber transition in the mesenteric root of both entry points. However, there is stool within the proximal portion which appears to be at least partially contrast opacified, and no definite persisting of the vascular pedicle demonstrated. The liver, gallbladder, bile ducts, pancreas, spleen, adrenals, kidneys are unremarkable. There are accessory splenules demonstrated. No retroperitoneal or mesenteric mass or adenopathy. No pelvic mass or adenopathy. The prostate is enlarged and protrudes into the inferior bladder. The bladder is thick-walled. Previously demonstrated Avalos catheter has been removed. Again demonstrated is a large right pleural effusion and a moderate to large left pleural effusion. Again demonstrated are compressive atelectatic changes of significant portions of both lower lobes. Pacemaker wires are seen within the heart. Previously demonstrated high attenuation focus within the right pectineus muscle is not evident. However, there is a low-attenuation area which measures 2 cm diameter centrally which is not evident previously. There is diffuse edema of the subcutaneous fat. This is less severe than was demonstrated previously. There are degenerative proliferative changes of the lumbar spine. Impression: Abnormal configuration of the sigmoid colon, with marked distention of a sigmoid, inversion of the relationships of the proximal and descending colon, and evidence of immediately apposed transition point raises concern for sigmoid volvulus. However, similarity to the prior exam, presence of what appears to be contrast opacified stool within the dilated segment, and lack of evidence of twisting of the vascular pedicle raises the possibility that this is baseline for this patient or possibly dysfunctional in nature. Correlate with clinical findings Enlarged prostate with protrusion into the bladder floor. Bladder neoplasm not completely excludable as a result Thick-walled bladder, may indicate cystitis or be due to chronic bladder lumen obstruction related to the above Abnormalities right pectineus muscle, with a 2 cm central low attenuation area. Note that previous exam have a high attenuation focus suspicious for a small pseudoaneurysm. 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 Colonic diverticulosis. No evidence of diverticulitis Gastrostomy in good position Rectal tube in good position Large right and moderate to large left pleural effusions. Resultant compressive pulmonary atelectatic changes or graft edema subcutaneous fat, less severe than was demonstrated on prior 08/17/2019 exam. Jonathan Urias Oct 13, 2019 12:42
--- NOTE | 2019-10-13 14:32 | Hematology/Onc Progress Note ---
Assessment/Plan Assessment/Plan Assessment/recs # Anemia due to chronic disease/kidney disease as well, gi bleed + occult + noted --> was on iron in the past, now on hold --> has been started on Epogen sq --> as per renal care --> egd done and shows gastritis --> on ppi --> egd showed gastritis, colo recently done --> hgb 9-->8.7-->7.6-->9.2-->8.9-->9.2->9.3-->8.8->9.9-->9.2-->8.1-->8.7-->7.9- ->8.6-->8.9-->8.2->9-->9.3->8.9-->9.5-->10.6->9.2-->10->8.9-->8.3-->8.9 --> spep ordered->wnl # Leukocytosis - with multiple infections, VRE UTI, flow is negative --> wbc trend 33-->28-->25->23->22->23->24->17.3-->17-->14->16-->15.6-->14-->14- >13->19->18->17->22->22->19->17-->18->20-->15-->14->16-->14-->17->18-->17->15 --> on abx, linezolid and zosyn--> zosyn-->gent-->off --> + blood cultures with coag neg staph likely contaminated --> as per id recs --> has ordered a flow cytometry (with pathology) --> does show increased nK cell activity --> JOURDAN 2 and bcr-abl labs ordered (these are send outs)->negative --> plt 585-->613-->649-->669->663-->529-->506-->620 # Elevated ddimer on admission --> duplex lower legs neg for dvt # Respiratory failure --> per pulm, s/p trach --> COVID 19 test negative x 2 # Hyperlipidemia --> statin po # Dysphagia s/p gtube with nepro --> per gi # ESRD with r fem julito --> hd as per renal # Dvt ppx scds Appreciate consultation and dw Rn Subjective Constitutional: Denies: no symptoms, chills, fever, malaise, weakness, other HEENT: Denies: no symptoms, eye pain, blurred vision, tearing, double vision, ear pain, ear discharge, nose pain, nose congestion, throat pain, throat swelling, mouth pain, mouth swelling, other Cardiovascular: Denies: no symptoms, chest pain, edema, irregular heart rate, lightheadedness, palpitations, syncope, other Respiratory: Denies: no symptoms, cough, shortness of breath, SOB with excertion, SOB at rest, sputum, wheezing, other Gastrointestinal/Abdominal: Denies: no symptoms, abdomen distended, abdominal pain, black stools, tarry stools, blood in stool, constipated, diarrhea, difficulty swallowing, nausea, poor appetite, poor fluid intake, rectal bleeding , vomiting, other Genitourinary: Denies: no symptoms, burning, discharge, frequency, flank pain, hematuria, incontinence, pain, urgency, other Endocrine: Denies: no symptoms, excessive sweating, flushing, intolerance to cold, intolerance to heat, increased hunger, increased thirst, increased urine, unexplained weight gain, unexplained weight loss, other Allergies: Coded Allergies: No Known Allergies (Unverified , 06/10/19) Subjective 08/15 meds noted, no bleeding, hgb 8.8, wbc 28, path flow pending 08/16 flow pending dw pathologist, results pending, wbc 25, hgb 9 08/17 labs reviewed, meds reviewed, meds noted, no night sweats 08/19 remains obtunded, on vent/trach, no bleeding wbc 21.7 08/20 labs have been reviewed, no bleeding, wbc still elev, path reviewed 08/21 labs are noted, no bleeding, on vent, wbc better 08/22 labs noted, no bleeding, meds reviewed, wbc 24 hgb 7.6 08/23 vent, off abx, c diff negative, h/h stable 08/24 labs reviewed, on abx, wbc 17, hgb 8.9, no hemolysis 08/26 reviewed flow and is negative for leukemia, matt rn 08/27 meds reviewed, no night sweats, matt rn, no major bleeding 08/28 meds reivewed, labs noted 08/29 wbc is stable, approx 15, hgb 8.8, no hemolysis 08/30 labs are noted, is for colo today, hgb 9.9 08/31 right fem julito in place, unchanged, hgb 9.2, gi aware 09/01 labs noted, hgb 8.8, plt >600, no bleeding 09/02 labs noted, no bleeding, with elev wbc still, no new changes 09/03 meds are noted, no bleeding, labs reviewed hgb 8.6 09/04 no major events, hd as per renal, abx, no bleeding hgb low 09/05 labs are noted, no bleeding, meds have been reviewed 09/06 no new labs no hemolysis, cbc is noted, no bleeding 09/07 meds reviewed, no bleeding, matt rn, permacath functioning well 09/09 meds reviewed, wbc still elevated, as per id recs, cbc noted 09/10 is obtunded, with gutbe in place, labs reviewed 09/11 obtunded, as per id, observe now off abx, labs noted, wbc 19 09/12 cbc is pending, remains on epogen, also off abx 09/13 labs reviewed, no bleeding, elev wbc, no night sweats 09/14 meds noted, no bleeding, wbc 19, hgb 9.5, no night sweats 09/21 obtunded, remains on vent, labs noted, no bleeding, hgb 8.9 09/22 obtunded, labs noted, no bleeding, on vent, unchanged 09/23 unchanges, wbc remains elevated 20k, on abx, on vent 09/24 labs have been reviewed, no bleeding, wbc 15, may need abx 09/25 formula gtube changed, labs noted, remains obtunded, hgb 9.3 09/26 labs have been reviewed, no bleeding, matt rn, no night sweats 09/27 meds reviewed, no bleeding, wbc 14, on abx, remains obtunded 09/28 remains obtunded, no bleeding, wbc better, hgb 8.9, no hemolysis, plt 506 09/30 on colisitn, wbc elevated, cefepime added per id, hgb stable 10/01 labs reviewed, no bleeding, matt rn, no major events noted, wbc 14, hgb 10.6 10/02 labs have been noted, hgb 9.2, wbc 17, on abx, matt rn 10/03 continue on tube feeds, no bleeding, on vent, wbc remains elevated 10/04 remains ibtunded, is on a mechanical ventilator with tube feeds noted 10/05 labs are noted, hgb 8.6, wbc remains elevated, have ordered for spep 10/07 obtunded on vent, with gtube feeds, labs reviewed, matt rn 10/08 labs are noted, on vent/trach, hgb 10.2, remains obtunded 10/09 labns noted, wbc 15, hgb 8.9, remains altered, on tfs 10/10 labs noted, holding tube feeds, matt rn, hg stable 8.3 currently 10/11 remains on tfs, supportive care, labs noted, no bleeding 10/12 remains obtunded, hgb 8.9, no hemolysis is seen Objective Objective Current Medications Medications (Trade) Dose Ordered Sig/Leonel Route PRN Reason Start Time Stop Time Status Last Admin Dose Admin Acetaminophen (Tylenol) 650 mg Q4H PRN GT Mild Pain (Pain Scale 1-3) 09/21/19 12:45 10/21/19 12:44 10/07/19 23:28 Chlorhexidine Gluconate (Felipa-Hex 2%) 1 applic DAILY@2000 TOPIC 09/12/19 20:00 12/11/19 19:59 10/12/19 20:29 Clonidine HCl (Catapres Tab) 0.1 mg Q4H PRN GT For High Blood Pressure 09/09/19 12:30 12/08/19 05:29 09/15/19 04:10 Dextrose (Dextrose 50%) 25 ml Q30M PRN IV Hypoglycemia 08/09/19 07:30 11/07/19 07:29 Dextrose (Dextrose 50%) 50 ml Q30M PRN IV Hypoglycemia 08/09/19 07:30 11/07/19 07:29 Diphenoxylate HCl/ Atropine (Lomotil) 2.5 mg QID PRN ORAL Diarrhea 09/24/19 08:45 10/24/19 08:44 Epoetin Andreas (Epoetin Andreas(ESRD on dialysis)) 10,000 unit WED-WED-WED SUBQ 10/09/19 21:00 01/07/20 20:59 10/11/19 21:32 Famotidine (Pepcid) 20 mg DAILY GT 08/30/19 09:00 11/28/19 08:59 10/13/19 08:13 Insulin Aspart (NovoLOG) Q6HR SUBQ 09/25/19 18:00 11/07/19 11:29 10/13/19 12:16 Lactobacillus Acidophilus (Culturelle) 1 tab EVERY 12 HOURS GT 10/03/19 21:00 12/13/19 17:59 10/13/19 08:13 Metoprolol Tartrate (Lopressor) 200 mg Q12HR GT 08/09/19 09:00 11/07/19 08:59 10/13/19 08:13 Minoxidil (Loniten) 5 mg DAILY GT 08/09/19 09:00 11/07/19 08:59 10/11/19 08:09 Zinc Oxide (Zinc Oxide) 1 applic EVERY 12 HOURS TOPIC 10/03/19 09:00 11/08/19 17:59 10/13/19 08:14 Last 24 Hour Vital Signs Date Time Temp Pulse Resp B/P (MAP) Pulse Ox O2 Delivery O2 Flow Rate FiO2 10/13/19 13:00 91 18 24 10/13/19 12:00 91 10/13/19 12:00 98.6 89 20 102/57 (72) 99 10/13/19 12:00 24 10/13/19 12:00 Mechanical Ventilator 10/13/19 11:00 89 15 24 10/13/19 09:00 89 15 24 10/13/19 08:13 103 106/44 10/13/19 08:07 106/44 10/13/19 08:00 Mechanical Ventilator 10/13/19 08:00 24 10/13/19 08:00 98.6 103 20 106/44 (64) 99 10/13/19 07:40 105 10/13/19 07:20 103 14 24 10/13/19 05:03 81 20 24 10/13/19 04:00 98.6 97 20 117/56 (76) 99 10/13/19 04:00 92 10/13/19 04:00 24 10/13/19 04:00 Mechanical Ventilator 10/13/19 02:48 92 24 24 10/13/19 00:36 82 18 24 10/13/19 00:00 98.6 82 18 129/71 (90) 99 10/13/19 00:00 82 10/13/19 00:00 Mechanical Ventilator 10/12/19 22:46 85 17 24 10/12/19 21:00 70 100/59 10/12/19 20:48 82 17 24 10/12/19 20:00 83 10/12/19 20:00 24 10/12/19 20:00 Mechanical Ventilator 10/12/19 20:00 97.0 83 18 103/60 (74) 100 10/12/19 18:53 82 15 24 10/12/19 16:00 77 10/12/19 16:00 24 10/12/19 16:00 97.7 75 15 127/54 (78) 100 17 10/12/19 16:00 Mechanical Ventilator 10/12/19 12:01 68 10/12/19 12:00 24 10/12/19 12:00 98.2 98 15 101/60 (74) 100 17 10/12/19 12:00 Mechanical Ventilator 10/12/19 11:19 75 16 24 10/12/19 09:00 15 142/68 10/12/19 08:44 98.2 77 15 142/68 (92) 100 15 10/12/19 08:42 71 16 24 10/12/19 08:00 86 10/12/19 08:00 Mechanical Ventilator 10/12/19 08:00 24 10/12/19 07:26 76 15 24 10/12/19 04:46 79 16 24 10/12/19 04:00 98.2 79 17 143/57 (85) 100 10/12/19 04:00 24 10/12/19 04:00 78 10/12/19 04:00 Mechanical Ventilator 10/12/19 03:04 77 18 24 10/12/19 00:53 73 12 24 10/12/19 00:00 74 10/12/19 00:00 Mechanical Ventilator 10/12/19 00:00 97.2 71 17 129/59 (82) 100 9/2/20 22:46 72 18 24 10/11/19 21:00 71 15 24 10/11/19 20:27 75 130/55 10/11/19 20:00 71 10/11/19 20:00 97.7 75 17 130/55 (80) 100 10/11/19 20:00 24 10/11/19 20:00 Mechanical Ventilator 10/11/19 18:44 72 15 24 10/11/19 17:17 68 13 24 10/11/19 16:00 98.2 70 16 131/55 (80) 100 10/11/19 16:00 Mechanical Ventilator 10/11/19 16:00 24 10/11/19 16:00 73 10/11/19 14:49 74 20 24 Intake and Output 10/12/19 10/13/19 19:00 07:00 Intake Total 770 ml 585 ml Output Total 4800 ml 70 ml Balance -4030 ml 515 ml Free Water 230 ml 90 ml Tube Feeding 540 ml 495 ml Stool Total 70 ml Hemodialysis UF 2400 ml Other 2400 ml Labs Test 10/10/19 16:20 10/10/19 16:25 10/10/19 23:54 10/11/19 02:45 White Blood Count 16.7 K/UL (4.8-10.8) 14.2 K/UL (4.8-10.8) Red Blood Count 3.63 M/UL (4.70-6.10) 3.46 M/UL (4.70-6.10) Hemoglobin 8.8 G/DL (14.2-18.0) 8.3 G/DL (14.2-18.0) Hematocrit 29.3 % (42.0-52.0) 27.5 % (42.0-52.0) Mean Corpuscular Volume 81 FL (80-99) 80 FL (80-99) Mean Corpuscular Hemoglobin 24.2 PG (27.0-31.0) 24.1 PG (27.0-31.0) Mean Corpuscular Hemoglobin Concent 30.0 G/DL (32.0-36.0) 30.3 G/DL (32.0-36.0) Red Cell Distribution Width 17.9 % (11.6-14.8) 16.5 % (11.6-14.8) Platelet Count 510 K/UL (150-450) 501 K/UL (150-450) Mean Platelet Volume 6.1 FL (6.5-10.1) 5.9 FL (6.5-10.1) Neutrophils (%) (Auto) 67.7 % (45.0-75.0) 67.9 % (45.0-75.0) Lymphocytes (%) (Auto) 14.3 % (20.0-45.0) 15.4 % (20.0-45.0) Monocytes (%) (Auto) 6.9 % (1.0-10.0) 6.3 % (1.0-10.0) Eosinophils (%) (Auto) 9.6 % (0.0-3.0) 9.6 % (0.0-3.0) Basophils (%) (Auto) 1.6 % (0.0-2.0) 0.8 % (0.0-2.0) Sodium Level 134 MMOL/L (136-145) 137 MMOL/L (136-145) Potassium Level 5.1 MMOL/L (3.5-5.1) 4.3 MMOL/L (3.5-5.1) Chloride Level 96 MMOL/L (98-107) 101 MMOL/L (98-107) Carbon Dioxide Level 27 MMOL/L (21-32) 25 MMOL/L (21-32) Anion Gap 11 mmol/L (5-15) 11 mmol/L (5-15) Blood Urea Nitrogen 109 mg/dL (7-18) 44 mg/dL (7-18) Creatinine 5.4 MG/DL (0.55-1.30) 2.9 MG/DL (0.55-1.30) Estimat Glomerular Filtration Rate 10.3 mL/min (>60) 21.2 mL/min (>60) Glucose Level 159 MG/DL (74-106) 118 MG/DL (74-106) Calcium Level 9.4 MG/DL (8.5-10.1) 9.0 MG/DL (8.5-10.1) POC Whole Blood Glucose 133 MG/DL (74-106) 136 MG/DL (74-106) Total Bilirubin 0.5 MG/DL (0.2-1.0) Aspartate Amino Transf (AST/SGOT) 115 U/L (15-37) Alanine Aminotransferase (ALT/SGPT) 111 U/L (12-78) Alkaline Phosphatase 250 U/L (46-116) Total Protein 8.2 G/DL (6.4-8.2) Albumin 2.5 G/DL (3.4-5.0) Globulin 5.7 g/dL Albumin/Globulin Ratio 0.4 (1.0-2.7) Test 10/11/19 05:34 10/11/19 10:41 10/11/19 16:42 10/11/19 23:18 POC Whole Blood Glucose 119 MG/DL (74-106) 112 MG/DL (74-106) 140 MG/DL (74-106) 167 MG/DL (74-106) Test 10/12/19 03:10 10/12/19 06:11 10/12/19 12:08 10/13/19 03:15 Sodium Level 132 MMOL/L (136-145) 135 MMOL/L (136-145) Potassium Level 4.2 MMOL/L (3.5-5.1) 3.5 MMOL/L (3.5-5.1) Chloride Level 96 MMOL/L (98-107) 99 MMOL/L (98-107) Carbon Dioxide Level 24 MMOL/L (21-32) 26 MMOL/L (21-32) Anion Gap 12 mmol/L (5-15) 10 mmol/L (5-15) Blood Urea Nitrogen 64 mg/dL (7-18) 37 mg/dL (7-18) Creatinine 3.9 MG/DL (0.55-1.30) 2.6 MG/DL (0.55-1.30) Estimat Glomerular Filtration Rate 15.0 mL/min (>60) 24.0 mL/min (>60) Glucose Level 154 MG/DL (74-106) 144 MG/DL (74-106) Calcium Level 9.2 MG/DL (8.5-10.1) 9.2 MG/DL (8.5-10.1) Total Bilirubin 0.4 MG/DL (0.2-1.0) Aspartate Amino Transf (AST/SGOT) 98 U/L (15-37) Alanine Aminotransferase (ALT/SGPT) 116 U/L (12-78) Alkaline Phosphatase 350 U/L (46-116) Total Protein 9.0 G/DL (6.4-8.2) Albumin 2.5 G/DL (3.4-5.0) Globulin 6.5 g/dL Albumin/Globulin Ratio 0.4 (1.0-2.7) POC Whole Blood Glucose 184 MG/DL (74-106) 103 MG/DL (74-106) White Blood Count 15.0 K/UL (4.8-10.8) Red Blood Count 3.65 M/UL (4.70-6.10) Hemoglobin 8.9 G/DL (14.2-18.0) Hematocrit 29.0 % (42.0-52.0) Mean Corpuscular Volume 79 FL (80-99) Mean Corpuscular Hemoglobin 24.3 PG (27.0-31.0) Mean Corpuscular Hemoglobin Concent 30.6 G/DL (32.0-36.0) Red Cell Distribution Width 16.7 % (11.6-14.8) Platelet Count 620 K/UL (150-450) Mean Platelet Volume 6.1 FL (6.5-10.1) Neutrophils (%) (Auto) 72.2 % (45.0-75.0) Lymphocytes (%) (Auto) 13.1 % (20.0-45.0) Monocytes (%) (Auto) 8.5 % (1.0-10.0) Eosinophils (%) (Auto) 5.6 % (0.0-3.0) Basophils (%) (Auto) 0.6 % (0.0-2.0) Height (Feet): 5 Height (Inches): 10.00 Weight (Pounds): 123 Objective Physical Exam General Appearance: nad, Chronically Ill Head: normocephalic Eyes: right eye PERRL - Will not open left eye ENT: moist mucus membranes Neck: other - submandibular mass R, fairly rigid with resistance to rotation to L, tracheotomy Respiratory: decreased breath sounds, crackles, other - pacemaker, vent+ Cardiovascular: regular rate, rhythm, edema - anasarca Gastrointestinal: non tender, distended, other - G tube Genitourinary: other Musculoskeletal: other - Contractures all extremities Neurologic: sensory intact, motor weakness, responsive Psychiatric: other Skin: Decubitus/Ulcer - Stage III right elbow, stage III left elbow, stage II sacrum, stage III scrotum, warm/dry Fitz Campos MD Oct 13, 2019 14:32
--- NOTE | 2019-10-13 14:37 | Nephrology Progress Note ---
Assessment/Plan Plan [facility] ESRD - HD TTS. Anemia of CKD -TUYET. Subjective Subjective Obtunded. Objective Objective Last 24 Hour Vital Signs Date Time Temp Pulse Resp B/P (MAP) Pulse Ox O2 Delivery O2 Flow Rate FiO2 10/13/19 13:00 91 18 24 10/13/19 12:00 91 10/13/19 12:00 98.6 89 20 102/57 (72) 99 10/13/19 12:00 24 10/13/19 12:00 Mechanical Ventilator 10/13/19 11:00 89 15 24 10/13/19 09:00 89 15 24 10/13/19 08:13 103 106/44 10/13/19 08:07 106/44 10/13/19 08:00 Mechanical Ventilator 10/13/19 08:00 24 10/13/19 08:00 98.6 103 20 106/44 (64) 99 10/13/19 07:40 105 10/13/19 07:20 103 14 24 10/13/19 05:03 81 20 24 10/13/19 04:00 98.6 97 20 117/56 (76) 99 10/13/19 04:00 92 10/13/19 04:00 24 10/13/19 04:00 Mechanical Ventilator 10/13/19 02:48 92 24 24 10/13/19 00:36 82 18 24 10/13/19 00:00 98.6 82 18 129/71 (90) 99 10/13/19 00:00 82 10/13/19 00:00 Mechanical Ventilator 10/12/19 22:46 85 17 24 10/12/19 21:00 70 100/59 10/12/19 20:48 82 17 24 10/12/19 20:00 83 10/12/19 20:00 24 10/12/19 20:00 Mechanical Ventilator 10/12/19 20:00 97.0 83 18 103/60 (74) 100 10/12/19 18:53 82 15 24 10/12/19 16:00 77 10/12/19 16:00 24 10/12/19 16:00 97.7 75 15 127/54 (78) 100 17 10/12/19 16:00 Mechanical Ventilator Intake and Output 10/12/19 10/13/19 19:00 07:00 Intake Total 770 ml 585 ml Output Total 4800 ml 70 ml Balance -4030 ml 515 ml Free Water 230 ml 90 ml Tube Feeding 540 ml 495 ml Stool Total 70 ml Hemodialysis UF 2400 ml Other 2400 ml Laboratory Tests 10/13/19 03:15: White Blood Count 15.0H, Red Blood Count 3.65L, Hemoglobin 8.9L, Hematocrit 29.0L, Mean Corpuscular Volume 79L, Mean Corpuscular Hemoglobin 24.3L, Mean Corpuscular Hemoglobin Concent 30.6L, Red Cell Distribution Width 16.7H, Platelet Count 620H, Mean Platelet Volume 6.1L, Neutrophils (%) (Auto) 72.2, Lymphocytes (%) (Auto) 13.1L, Monocytes (%) (Auto) 8.5, Eosinophils (%) (Auto) 5.6H, Basophils (%) (Auto) 0.6, Sodium Level 135L, Potassium Level 3.5, Chloride Level 99, Carbon Dioxide Level 26, Anion Gap 10, Blood Urea Nitrogen 37H, Creatinine 2.6H, Estimat Glomerular Filtration Rate 24.0, Glucose Level 144H, Calcium Level 9.2 Height (Feet): 5 Height (Inches): 10.00 Weight (Pounds): 123 Objective CV RR Trach clean Lungs CTA New Perma Cath RIJ. Abd SNT. BS + E No CCE Erica Pichardo MD Oct 13, 2019 14:37
[2019-10-13] MEDS ORDERED: Heparin Sod 1000 units/ml 10ml IV PRN (14:40)
[2019-10-13] MEDS ORDERED: Heparin 1000 units/ml 1ml Vial INJ PRN (14:40)
--- NOTE | 2019-10-13 14:43 | General Progress Note ---
Assessment/Plan Assessment/Plan: Assessment - abdominal distention, due to colonic dysmotility, - colonoscopy negative to hepatic flexure - diarrhea - presumed TF related - abnormal LFT - ? etiology --> HIDA negative and CT negative - Anemia - leukocytosis - stool OB (+) - EGD --> gastritis - Renal failure - Anasarca - resp failure, trach - b/l pleural effusions - dysphagia, GT - encephalopathy, contracted - poor px Recommendations - continue TF - Off of Statin - ? thoracentesis - rectal tube - roll side to side as feasible (hard due to severe contractions) - Elevate HOB - f/u labs - PPI - abx - supportive care Subjective Allergies: Coded Allergies: No Known Allergies (Unverified , 06/10/19) Subjective above noted NAD on TF thick liquid stool in rectal tube Objective Last 24 Hour Vital Signs Date Time Temp Pulse Resp B/P (MAP) Pulse Ox O2 Delivery O2 Flow Rate FiO2 10/13/19 13:00 91 18 24 10/13/19 12:00 91 10/13/19 12:00 98.6 89 20 102/57 (72) 99 10/13/19 12:00 24 10/13/19 12:00 Mechanical Ventilator 10/13/19 11:00 89 15 24 10/13/19 09:00 89 15 24 10/13/19 08:13 103 106/44 10/13/19 08:07 106/44 10/13/19 08:00 Mechanical Ventilator 10/13/19 08:00 24 10/13/19 08:00 98.6 103 20 106/44 (64) 99 10/13/19 07:40 105 10/13/19 07:20 103 14 24 10/13/19 05:03 81 20 24 10/13/19 04:00 98.6 97 20 117/56 (76) 99 10/13/19 04:00 92 10/13/19 04:00 24 10/13/19 04:00 Mechanical Ventilator 10/13/19 02:48 92 24 24 10/13/19 00:36 82 18 24 10/13/19 00:00 98.6 82 18 129/71 (90) 99 10/13/19 00:00 82 10/13/19 00:00 Mechanical Ventilator 10/12/19 22:46 85 17 24 10/12/19 21:00 70 100/59 9/3/20 20:48 82 17 24 10/12/19 20:00 83 10/12/19 20:00 24 10/12/19 20:00 Mechanical Ventilator 10/12/19 20:00 97.0 83 18 103/60 (74) 100 10/12/19 18:53 82 15 24 10/12/19 16:00 77 10/12/19 16:00 24 10/12/19 16:00 97.7 75 15 127/54 (78) 100 17 10/12/19 16:00 Mechanical Ventilator Intake and Output 10/12/19 10/13/19 19:00 07:00 Intake Total 770 ml 585 ml Output Total 4800 ml 70 ml Balance -4030 ml 515 ml Free Water 230 ml 90 ml Tube Feeding 540 ml 495 ml Stool Total 70 ml Hemodialysis UF 2400 ml Other 2400 ml Laboratory Tests 10/13/19 03:15: White Blood Count 15.0H, Red Blood Count 3.65L, Hemoglobin 8.9L, Hematocrit 29.0L, Mean Corpuscular Volume 79L, Mean Corpuscular Hemoglobin 24.3L, Mean Corpuscular Hemoglobin Concent 30.6L, Red Cell Distribution Width 16.7H, Platelet Count 620H, Mean Platelet Volume 6.1L, Neutrophils (%) (Auto) 72.2, Lymphocytes (%) (Auto) 13.1L, Monocytes (%) (Auto) 8.5, Eosinophils (%) (Auto) 5.6H, Basophils (%) (Auto) 0.6, Sodium Level 135L, Potassium Level 3.5, Chloride Level 99, Carbon Dioxide Level 26, Anion Gap 10, Blood Urea Nitrogen 37H, Creatinine 2.6H, Estimat Glomerular Filtration Rate 24.0, Glucose Level 144H, Calcium Level 9.2 Height (Feet): 5 Height (Inches): 10.00 Weight (Pounds): 123 Objective Debilitated AA man NCAT (+) trach coarse BS RR abd less distended, anasarca, (+) GT, (+) rectal tube ext contracted Ronny Mustafa MD Oct 13, 2019 14:43
[2019-10-13 16:00] VITALS: BP 101/52
--- NOTE | 2019-10-13 16:53 | NUR ---
CASE MANAGEMENT:REVIEW SI;ESRD on HD . CHRONIC LEUKOCYTOSIS 98.8 91 20 101/52 99% TRACH/VENT FIO2 @ 24% WBC 15 H/H 8.9/29 PLT 620 NA 135 BUN 37 CR 2.6 BG 144 IS;CULTURELLE GT Q12 PEPCID GT QD LONITEN GT QD LOPRESSOR GT Q12 KEREN STATUS DCP;PLACEMENT PATIENT HAS BEEN ACCEPTED TO [facility] PENDING [facility] PLAN [facility]. PER [facility] CM HD MARISABEL WAS SENT TO DIALYSIS CENTER
--- NOTE | 2019-10-13 16:56 | NUR ---
NURSE NOTES: Called [facility], , and spoke with Kae, informed Kae that patient has hemodialysis ordered for 10/14/[address] Pichardo. Kae acknowledged and will inform hemodialysis nurse. Logged dialysis log book. Will continue to monitor patient.
--- NOTE | 2019-10-13 17:00 | NUR ---
*-* INSURANCE *-* UPDATED CLINICALS AND REVIEWS HAVE BEEN FAXED TO: [facility] REF# [id number] RIC:HARPER P:[phone] F:[phone]
--- NOTE | 2019-10-13 19:10 | NUR ---
NURSE NOTES: received pt from Srinivas DAVEY., pt is obtunded and opens eye at this time. gtube site intact, clean, and patent. rectal tube in place, draining well with gravity. left hand 22g SL, intact, clean, and patent. bed at the lowest position, alarmed, and locked. HOB greater than 30 degree. call light within reach. will continue to monitor pt with plan of care.
--- NOTE | 2019-10-13 19:11 | NUR ---
NURSE NOTES: no SOB noted, O2sat is at 100%. no active bleeding noted.
--- NOTE | 2019-10-13 19:33 | NUR ---
NURSE HAND-OFF REPORT: Important Events on Shift: Patient Status: Stable Diet: Nepro 45 ml/hr Pending Orders: None Pending Results/Labs:None Pending MD notification:None Latest Vital Signs: Temperature 98.8 , Pulse 90 , B/P 101 /52 , Respiratory Rate 18 , O2 SAT 100 , Mechanical Ventilator, O2 Flow Rate 15.0 . Vital Sign Comment: Stable EKG Rhythm: V-Paced Rhythm change?: N MD Notified?: N - MD Response: Latest Delacruz Fall Score: 70 Fall Risk: High Risk Safety Measures: Call light Within Reach, Bed Alarm Zone 1, Side Rails Side Rails x3, Bed position Low and Locked. Fall Precautions: Yellow Socks Report given to Ana Davis RN.
[2019-10-13 20:00] VITALS: BP 110/60
[2019-10-13] MEDS: Dyna-Hex 2% Top Sol 2oz TOPIC SCH (20:41)
[2019-10-13] MEDS: Epoetin Alfa-EPBX(ESRD on dialysis)10,000 unit/ml vial SUBQ SCH (20:41)
--- NOTE | 2019-10-13 23:00 | NUR ---
NURSE NOTES: left voice mail to Dr. Ramirez regarding pt's 10 beats of V-tach [id number]. and EKG done (result: atrial sensed V-pacing rhythm). pt's Vitals are stable at this time. no SOB noted. call light within reach. will continue to monitor pt with plan of care. will wait for call back. Addendum: 10/13/19 at 2333 by JOEL MANE RN wrong time
--- NOTE | 2019-10-13 23:30 | NUR ---
NURSE NOTES: left voice mail to Dr. Ramirez regarding pt's 10 beats of V-tach [id number]. and EKG done (result: atrial sensed V-pacing rhythm). pt's Vitals are stable at this time. no SOB noted. call light within reach. will continue to monitor pt with plan of care. will wait for call back.
[2019-10-14] VITALS: BP 98/59
[2019-10-14] MEDS: NovoLOG Insulin Flexpen SUBQ SCH ×4 (00:26→18:01)
--- NOTE | 2019-10-14 02:00 | NUR ---
NURSE NOTES: cleaned pt, oral care given, new gown and new blanket provided. no SOB noted. no active bleeding noted. turned pt Q2hrs. call light within reach. will continue to monitor pt with plan of care.
[2019-10-14 04:00] VITALS: BP 124/77
[2019-10-14 04:33] LABS: HEMOGLOBIN 8.6 G/DL (14.2-18.0); MEAN CORPUSCULAR VOLUME 80 FL (80-99); PLATELET COUNT 646 K/UL (150-450); RED BLOOD COUNT 3.64 M/UL (4.70-6.10); RED CELL DISTRIBUTION WIDTH 16.8 % (11.6-14.8); WHITE BLOOD COUNT 18.8 K/UL (4.8-10.8)
[2019-10-14 04:53] LABS: ANION GAP 12 mmol/L (5-15); BLOOD UREA NITROGEN 71 mg/dL (7-18); CALCIUM 9.1 MG/DL (8.5-10.1); CARBON DIOXIDE 24 MMOL/L (21-32); CHLORIDE 99 MMOL/L (98-107); CREATININE 3.8 MG/DL (0.55-1.30); POTASSIUM 3.4 MMOL/L (3.5-5.1); SODIUM 134 MMOL/L (136-145)
--- NOTE | 2019-10-14 07:11 | NUR ---
NURSE HAND-OFF REPORT: Important Events on Shift:10 beats Vtach 9.4 and pt will have HD today Patient Status: stable Diet: Nephro 1.8 Pending Orders: Pending Results/Labs: Pending MD notification:Dr. Pichardo regarding new EKG result and 10 beats of Vtach Latest Vital Signs: Temperature 98.0 , Pulse 91 , B/P 124 /77 , Respiratory Rate 12 , O2 SAT 100 , Mechanical Ventilator, O2 Flow Rate 15.0 . Vital Sign Comment: stable EKG Rhythm: V-Paced and 10 beats of V-tach Rhythm change?: patel RUSS Notified?: y - Dr. James RUSS Response: not yet, endorsed to Elizabeth DAVEY to follow up Latest [place] Fall Score: 70 Fall Risk: High Risk Safety Measures: Call light Within Reach, Bed Alarm Zone 1, Side Rails Side Rails x3, Bed position Low and Locked. Fall Precautions: Yellow Socks Report given to Elizabeth DAVEY. Addendum: 10/14/19 at 0713 by JOEL MANE RN more info
--- NOTE | 2019-10-14 07:13 | NUR ---
NURSE HAND-OFF REPORT: Important Events on Shift:10 beats Vtach 9.4 and pt will have HD today Patient Status: stable Diet: Nephro 1.8 Pending Orders: Pending Results/Labs:WBC 18.8, NA 134, K 3.4 (need to follow up) Pending MD notification:Dr. Pichardo regarding new EKG result and 10 beats of Vtach Latest Vital Signs: Temperature 98.0 , Pulse 91 , B/P 124 /77 , Respiratory Rate 12 , O2 SAT 100 , Mechanical Ventilator, O2 Flow Rate 15.0 . Vital Sign Comment: stable EKG Rhythm: V-Paced and 10 beats of V-tach Rhythm change?: patel RUSS Notified?: y - Dr. James RUSS Response: not yet, endorsed to Elizabeth DAVEY to follow up Latest Delacruz Fall Score: 70 Fall Risk: High Risk Safety Measures: Call light Within Reach, Bed Alarm Zone 1, Side Rails Side Rails x3, Bed position Low and Locked. Fall Precautions: Yellow Socks Report given to Elizabeth DAVEY
--- NOTE | 2019-10-14 07:38 | NUR ---
NURSE NOTES: Nurse report given by TAMICA Muhammad. Patient's in stable condition, obtunded, withdrawal to pain, no s/s of distress or SOB, no s/s of pain using FLACC score. GT noted, feeding stops from 6-10am, flushed and patent. IV is saline locked, flushed, patent and asymptomatic. Vent/Trach with AC 12,, Vt 450, Fi02 30%, Peeps 5. Rectal tube noted. Skin assessment performed, dressing changed. Bed low and locked, call light within reach, side rails x 3. Will continue to monitor. Addendum: 10/14/19 at 0744 by Marlene Elizondo RN Wrong Trach/Vent setting: AC 12, TV 550, FIo2 24%, Peeps 5. Oral care and trach suction provided.
[2019-10-14 07:55] VITALS: BP 110/53
--- NOTE | 2019-10-14 08:02 | General Progress Note ---
Assessment/Plan Assessment/Plan: Assessment - abdominal distention, due to colonic dysmotility, - colonoscopy negative to hepatic flexure - diarrhea - presumed TF related - abnormal LFT - Anemia - leukocytosis - stool OB (+) - EGD --> gastritis - Renal failure - Anasarca - resp failure, trach - dysphagia, GT - encephalopathy, contracted - poor px Recommendations - continue TF - rectal tube - roll side to side as feasible (hard due to severe contractions) - Elevate HOB - f/u labs - PPI - abx - supportive care Subjective ROS Limited/Unobtainable: No Allergies: Coded Allergies: No Known Allergies (Unverified , 06/10/19) Objective Last 24 Hour Vital Signs Date Time Temp Pulse Resp B/P (MAP) Pulse Ox O2 Delivery O2 Flow Rate FiO2 10/14/19 07:55 98.1 84 16 110/53 (72) 100 10/14/19 07:05 82 12 24 10/14/19 05:36 91 12 24 10/14/19 04:00 86 10/14/19 04:00 24 10/14/19 04:00 Mechanical Ventilator 10/14/19 04:00 98.0 78 18 124/77 (93) 100 10/14/19 03:56 88 17 24 10/14/19 01:24 90 19 24 10/14/19 00:00 Mechanical Ventilator 10/14/19 00:00 98.9 80 20 98/59 (72) 100 10/13/19 23:32 90 10/13/19 23:05 93 12 24 10/13/19 21:23 89 13 24 10/13/19 21:00 24 10/13/19 20:40 98 118/60 10/13/19 20:00 Mechanical Ventilator 10/13/19 20:00 97.9 95 20 110/60 (77) 100 10/13/19 19:39 91 18 24 10/13/19 19:27 91 10/13/19 17:00 90 18 24 10/13/19 16:00 90 10/13/19 16:00 98.8 91 20 101/52 (68) 100 10/13/19 16:00 Mechanical Ventilator 10/13/19 15:00 90 18 24 10/13/19 13:00 91 18 24 10/13/19 12:00 91 10/13/19 12:00 98.6 89 20 102/57 (72) 99 10/13/19 12:00 24 10/13/19 12:00 Mechanical Ventilator 10/13/19 11:00 89 15 24 10/13/19 09:00 89 15 24 10/13/19 08:13 103 106/44 10/13/19 08:07 106/44 Intake and Output 10/13/19 10/14/19 19:00 07:00 Intake Total 435 ml 555 ml Output Total 125 ml 60 ml Balance 310 ml 495 ml Free Water 30 ml 60 ml Tube Feeding 405 ml 495 ml Stool Total 125 ml 60 ml # Voids 1 Laboratory Tests 10/14/19 03:20: White Blood Count 18.8H, Red Blood Count 3.64L, Hemoglobin 8.6L, Hematocrit 29.0L, Mean Corpuscular Volume 80, Mean Corpuscular Hemoglobin 23.8L, Mean Corpuscular Hemoglobin Concent 29.8L, Red Cell Distribution Width 16.8H, Platelet Count 646H, Mean Platelet Volume 5.9L, Neutrophils (%) (Auto) , Lymphocytes (%) (Auto) , Monocytes (%) (Auto) , Eosinophils (%) (Auto) , Basophils (%) (Auto) , Neutrophils % (Manual) [Pending], Lymphocytes % (Manual) [Pending], Platelet Estimate [Pending], Platelet Morphology [Pending], Sodium Level 134L, Potassium Level 3.4L, Chloride Level 99, Carbon Dioxide Level 24, Anion Gap 12, Blood Urea Nitrogen 71H, Creatinine 3.8H, Estimat Glomerular Filtration Rate 15.5, Glucose Level 130H, Calcium Level 9.1 Height (Feet): 5 Height (Inches): 10.00 Weight (Pounds): 123 General Appearance: no apparent distress EENT: normal ENT inspection Neck: supple Cardiovascular: normal rate Respiratory/Chest: accessory muscle use Abdomen: normal bowel sounds, non tender, soft Extremities: non-tender Deon Landry MD Oct 14, 2019 08:02
[2019-10-14] MEDS: Metoprolol Tartrate 100mg tab GT SCH ×2 (08:30→20:12)
[2019-10-14] MEDS: Zinc Oxide Oint 2oz TOPIC SCH ×2 (08:31→20:13)
[2019-10-14] MEDS: Lactobacillus-GG tablet GT SCH ×2 (08:31→20:12)
[2019-10-14] MEDS: Minoxidil 2.5mg tab GT SCH (08:31)
--- NOTE | 2019-10-14 09:48 | NUR ---
NURSE NOTES: Tried to call [facility] to confirm dialysis today 10/[address] Brito; no one answered the phone. Will try again later.
--- NOTE | 2019-10-14 09:54 | Pulmonology Progress Note ---
Subjective ROS Limited/Unobtainable: No Constitutional: Denies: fever Gastrointestinal/Abdominal: Reports: other - had EGT & gastric biopsy yesterday Allergies: Coded Allergies: No Known Allergies (Unverified , 06/10/19) All Systems: reviewed and negative except above Objective Last 24 Hour Vital Signs Date Time Temp Pulse Resp B/P (MAP) Pulse Ox O2 Delivery O2 Flow Rate FiO2 10/14/19 08:31 154/68 10/14/19 08:30 84 154/68 10/14/19 08:00 82 10/14/19 08:00 Mechanical Ventilator 10/14/19 08:00 24 10/14/19 07:55 98.1 84 16 110/53 (72) 100 10/14/19 07:05 82 12 24 10/14/19 05:36 91 12 24 10/14/19 04:00 86 10/14/19 04:00 24 10/14/19 04:00 Mechanical Ventilator 10/14/19 04:00 98.0 78 18 124/77 (93) 100 10/14/19 03:56 88 17 24 10/14/19 01:24 90 19 24 10/14/19 00:00 Mechanical Ventilator 10/14/19 00:00 98.9 80 20 98/59 (72) 100 10/13/19 23:32 90 10/13/19 23:05 93 12 24 10/13/19 21:23 89 13 24 10/13/19 21:00 24 10/13/19 20:40 98 118/60 10/13/19 20:00 Mechanical Ventilator 10/13/19 20:00 97.9 95 20 110/60 (77) 100 10/13/19 19:39 91 18 24 10/13/19 19:27 91 10/13/19 17:00 90 18 24 10/13/19 16:00 90 10/13/19 16:00 98.8 91 20 101/52 (68) 100 10/13/19 16:00 Mechanical Ventilator 10/13/19 15:00 90 18 24 10/13/19 13:00 91 18 24 10/13/19 12:00 91 10/13/19 12:00 98.6 89 20 102/57 (72) 99 10/13/19 12:00 24 10/13/19 12:00 Mechanical Ventilator 10/13/19 11:00 89 15 24 Intake and Output 10/13/19 10/14/19 19:00 07:00 Intake Total 435 ml 555 ml Output Total 125 ml 60 ml Balance 310 ml 495 ml Free Water 30 ml 60 ml Tube Feeding 405 ml 495 ml Stool Total 125 ml 60 ml # Voids 1 Laboratory Tests 10/14/19 03:20: White Blood Count 18.8H, Red Blood Count 3.64L, Hemoglobin 8.6L, Hematocrit 29.0L, Mean Corpuscular Volume 80, Mean Corpuscular Hemoglobin 23.8L, Mean Corpuscular Hemoglobin Concent 29.8L, Red Cell Distribution Width 16.8H, Platelet Count 646H, Mean Platelet Volume 5.9L, Neutrophils (%) (Auto) , Lymphocytes (%) (Auto) , Monocytes (%) (Auto) , Eosinophils (%) (Auto) , Basophils (%) (Auto) , Neutrophils % (Manual) [Pending], Lymphocytes % (Manual) [Pending], Platelet Estimate [Pending], Platelet Morphology [Pending], Sodium Level 134L, Potassium Level 3.4L, Chloride Level 99, Carbon Dioxide Level 24, Anion Gap 12, Blood Urea Nitrogen 71H, Creatinine 3.8H, Estimat Glomerular Filtration Rate 15.5, Glucose Level 130H, Calcium Level 9.1 Current Medications Medications (Trade) Dose Ordered Sig/Leonel Route PRN Reason Start Time Stop Time Status Last Admin Dose Admin Acetaminophen (Tylenol) 650 mg Q4H PRN GT Mild Pain (Pain Scale 1-3) 09/21/19 12:45 10/21/19 12:44 10/07/19 23:28 Chlorhexidine Gluconate (Felipa-Hex 2%) 1 applic DAILY@1999 TOPIC 09/12/19 20:00 12/11/19 19:59 10/13/19 20:41 Clonidine HCl (Catapres Tab) 0.1 mg Q4H PRN GT For High Blood Pressure 09/09/19 12:30 12/08/19 05:29 09/15/19 04:10 Dextrose (Dextrose 50%) 25 ml Q30M PRN IV Hypoglycemia 08/09/19 07:30 11/07/19 07:29 Dextrose (Dextrose 50%) 50 ml Q30M PRN IV Hypoglycemia 08/09/19 07:30 11/07/19 07:29 Diphenoxylate HCl/ Atropine (Lomotil) 2.5 mg QID PRN ORAL Diarrhea 09/24/19 08:45 10/24/19 08:44 Epoetin Andreas (Epoetin Andreas(ESRD on dialysis)) 10,000 unit WED-WED-WED SUBQ 10/09/19 21:00 01/07/20 20:59 10/13/19 20:41 Famotidine (Pepcid) 20 mg DAILY GT 08/30/19 09:00 11/28/19 08:59 10/14/19 08:31 Heparin Sodium (Porcine) (Heparin Sod 1000 units/ml 10ml) 2,000 unit ONCE PRN IV HD 10/13/19 14:40 10/14/19 23:59 Heparin Sodium (Porcine) (Heparin) 1,000 unit POSTHD PRN INJ POST HD 10/13/19 14:40 10/14/19 23:59 Insulin Aspart (NovoLOG) Q6HR SUBQ 09/25/19 18:00 11/07/19 11:29 10/14/19 00:26 Lactobacillus Acidophilus (Culturelle) 1 tab EVERY 12 HOURS GT 10/03/19 21:00 12/13/19 17:59 10/14/19 08:31 Metoprolol Tartrate (Lopressor) 200 mg Q12HR GT 08/09/19 09:00 11/07/19 08:59 10/14/19 08:30 Minoxidil (Loniten) 5 mg DAILY GT 08/09/19 09:00 11/07/19 08:59 10/14/19 08:31 Sodium Chloride 1,000 ml @ 500 mls/hr Q2H PRN IVLG sbp<90 during hd 10/13/19 14:40 10/14/19 23:59 Zinc Oxide (Zinc Oxide) 1 applic EVERY 12 HOURS TOPIC 10/03/19 09:00 11/08/19 17:59 10/14/19 08:31 Assessment/Plan Assessment/Plan Pulmonary Progress Note Assessment/Plan: IMPRESSION: 1. anemia. 2. fevers improved 3. Leukocytosis. 4. hypotension 5. Acute on chronic renal failure. 6. Hyponatremia. 7. Severe protein-calorie malnutrition. 8. Significantly elevated C-reactive protein concerning for infectious etiology. 9. Tracheostomy, G-tube. 10. Ventilator dependence. 11. anasarca 12. Hematuria 13. V pacing 14. hyponatremia 15. transaminitis, HIDA negative PLAN chronic care; unable to place care noted may need CT on vent/ no wean monitor labs and optimize ID follow up dialysis ongoing prognosis poor for recovery impression, plan, and exam edited and reviewed in detail care discussed with RN Subjective ROS Limited/Unobtainable: Yes Allergies: Coded Allergies: No Known Allergies (Unverified , 06/10/19) Subjective stable on vent Objective Vital Signs Noted Height (Feet): 5 Height (Inches): 10.00 Weight (Pounds): 155 Objective GENERAL: Ill-appearing male, chronically debilitated. HEENT: Tracheostomy in midline. Questionable fullness in the submandibular region. LUNGS: Coarse breath sounds. reduced breath sounds CARDIAC: S1, S2. Regular rate and rhythm. ABDOMEN: Soft. G-tube. EXTREMITIES: With noted edema. NEUROLOGICAL: Poorly responsive, weak diffusely. Laboratory Tests noted CXR: Stable Kenny Mccurdy MD Oct 14, 2019 09:54
--- NOTE | 2019-10-14 10:40 | Infectious Diseases Prog Note ---
"Assessment/Plan Assessment/Plan antibiotics : none A 1. acenitobacter | proteus pneumonia s/p rx 2. respiratory failure 3. leucocytosis 4. COVID 19 test negative x 2 5. renal failure on HD P 1. continue off antibiotics 2. will follow up cultures Subjective ROS Limited/Unobtainable: Yes Allergies: Coded Allergies: No Known Allergies (Unverified , 06/10/19) Objective Last 24 Hour Vital Signs Date Time Temp Pulse Resp B/P (MAP) Pulse Ox O2 Delivery O2 Flow Rate FiO2 10/14/19 08:31 154/68 10/14/19 08:30 84 154/68 10/14/19 08:00 82 10/14/19 08:00 Mechanical Ventilator 10/14/19 08:00 24 10/14/19 07:55 98.1 84 16 110/53 (72) 100 10/14/19 07:05 82 12 24 10/14/19 05:36 91 12 24 10/14/19 04:00 86 10/14/19 04:00 24 10/14/19 04:00 Mechanical Ventilator 10/14/19 04:00 98.0 78 18 124/77 (93) 100 10/14/19 03:56 88 17 24 10/14/19 01:24 90 19 24 10/14/19 00:00 Mechanical Ventilator 10/14/19 00:00 98.9 80 20 98/59 (72) 100 10/13/19 23:32 90 10/13/19 23:05 93 12 24 10/13/19 21:23 89 13 24 10/13/19 21:00 24 10/13/19 20:40 98 118/60 10/13/19 20:00 Mechanical Ventilator 10/13/19 20:00 97.9 95 20 110/60 (77) 100 10/13/19 19:39 91 18 24 10/13/19 19:27 91 10/13/19 17:00 90 18 24 10/13/19 16:00 90 10/13/19 16:00 98.8 91 20 101/52 (68) 100 10/13/19 16:00 Mechanical Ventilator 10/13/19 15:00 90 18 24 10/13/19 13:00 91 18 24 10/13/19 12:00 91 10/13/19 12:00 98.6 89 20 102/57 (72) 99 10/13/19 12:00 24 10/13/19 12:00 Mechanical Ventilator 10/13/19 11:00 89 15 24 Height (Feet): 5 Height (Inches): 10.00 Weight (Pounds): 123 HEENT: status post trach Respiratory/Chest: lungs clear Cardiovascular: normal rate, regular rhythm, no gallop/murmur Abdomen: soft, non tender, other - GT Extremities: no edema, other - right subclavian catheter Laboratory Tests Test 10/14/19 03:20 White Blood Count 18.8 K/UL (4.8-10.8) H Red Blood Count 3.64 M/UL (4.70-6.10) L Hemoglobin 8.6 G/DL (14.2-18.0) L Hematocrit 29.0 % (42.0-52.0) L Mean Corpuscular Volume 80 FL (80-99) Mean Corpuscular Hemoglobin 23.8 PG (27.0-31.0) L Mean Corpuscular Hemoglobin Concent 29.8 G/DL (32.0-36.0) L Red Cell Distribution Width 16.8 % (11.6-14.8) H Platelet Count 646 K/UL (150-450) H Mean Platelet Volume 5.9 FL (6.5-10.1) L Neutrophils (%) (Auto) % (45.0-75.0) Lymphocytes (%) (Auto) % (20.0-45.0) Monocytes (%) (Auto) % (1.0-10.0) Eosinophils (%) (Auto) % (0.0-3.0) Basophils (%) (Auto) % (0.0-2.0) Neutrophils % (Manual) Pending Lymphocytes % (Manual) Pending Platelet Estimate Pending Platelet Morphology Pending Sodium Level 134 MMOL/L (136-145) L Potassium Level 3.4 MMOL/L (3.5-5.1) L Chloride Level 99 MMOL/L (98-107) Carbon Dioxide Level 24 MMOL/L (21-32) Anion Gap 12 mmol/L (5-15) Blood Urea Nitrogen 71 mg/dL (7-18) H Creatinine 3.8 MG/DL (0.55-1.30) H Estimat Glomerular Filtration Rate 15.5 mL/min (>60) Glucose Level 130 MG/DL (74-106) H Calcium Level 9.1 MG/DL (8.5-10.1) Current Medications Medications (Trade) Dose Ordered Sig/Leonel Route PRN Reason Start Time Stop Time Status Last Admin Dose Admin Acetaminophen (Tylenol) 650 mg Q4H PRN GT Mild Pain (Pain Scale 1-3) 09/21/19 12:45 10/21/19 12:44 10/07/19 23:28 Chlorhexidine Gluconate (Felipa-Hex 2%) 1 applic DAILY@1999 TOPIC 09/12/19 20:00 12/11/19 19:59 10/13/19 20:41 Clonidine HCl (Catapres Tab) 0.1 mg Q4H PRN GT For High Blood Pressure 09/09/19 12:30 12/08/19 05:29 09/15/19 04:10 Dextrose (Dextrose 50%) 25 ml Q30M PRN IV Hypoglycemia 08/09/19 07:30 11/07/19 07:29 Dextrose (Dextrose 50%) 50 ml Q30M PRN IV Hypoglycemia 08/09/19 07:30 11/07/19 07:29 Diphenoxylate HCl/ Atropine (Lomotil) 2.5 mg QID PRN ORAL Diarrhea 09/24/19 08:45 10/24/19 08:44 Epoetin Andreas (Epoetin Andreas(ESRD on dialysis)) 10,000 unit WED-WED-WED SUBQ 10/09/19 21:00 01/07/20 20:59 10/13/19 20:41 Famotidine (Pepcid) 20 mg DAILY GT 08/30/19 09:00 11/28/19 08:59 10/14/19 08:31 Heparin Sodium (Porcine) (Heparin Sod 1000 units/ml 10ml) 2,000 unit ONCE PRN IV HD 10/13/19 14:40 10/14/19 23:59 Heparin Sodium (Porcine) (Heparin) 1,000 unit POSTHD PRN INJ POST HD 10/13/19 14:40 10/14/19 23:59 Insulin Aspart (NovoLOG) Q6HR SUBQ 09/25/19 18:00 11/07/19 11:29 10/14/19 00:26 Lactobacillus Acidophilus (Culturelle) 1 tab EVERY 12 HOURS GT 10/03/19 21:00 12/13/19 17:59 10/14/19 08:31 Metoprolol Tartrate (Lopressor) 200 mg Q12HR GT 08/09/19 09:00 11/07/19 08:59 10/14/19 08:30 Minoxidil (Loniten) 5 mg DAILY GT 08/09/19 09:00 11/07/19 08:59 10/14/19 08:31 Sodium Chloride 1,000 ml @ 500 mls/hr Q2H PRN IVLG sbp<90 during hd 10/13/19 14:40 10/14/19 23:59 Zinc Oxide (Zinc Oxide) 1 applic EVERY 12 HOURS TOPIC 10/03/19 09:00 11/08/19 17:59 10/14/19 08:31 Farnaz Lyle MD Oct 14, 2019 10:40"
--- NOTE | 2019-10-14 10:40 | Surgery Progress Note ---
Surgery Progress Note Subjective Procedure Performed Right femoral temporary hemodialysis catheter removal Symptoms: tolerating diet, passing flatus, other Objective Last 24 Hour Vital Signs Date Time Temp Pulse Resp B/P (MAP) Pulse Ox O2 Delivery O2 Flow Rate FiO2 10/14/19 08:31 154/68 10/14/19 08:30 84 154/68 10/14/19 08:00 82 10/14/19 08:00 Mechanical Ventilator 10/14/19 08:00 24 10/14/19 07:55 98.1 84 16 110/53 (72) 100 10/14/19 07:05 82 12 24 10/14/19 05:36 91 12 24 10/14/19 04:00 86 10/14/19 04:00 24 10/14/19 04:00 Mechanical Ventilator 10/14/19 04:00 98.0 78 18 124/77 (93) 100 10/14/19 03:56 88 17 24 10/14/19 01:24 90 19 24 10/14/19 00:00 Mechanical Ventilator 10/14/19 00:00 98.9 80 20 98/59 (72) 100 10/13/19 23:32 90 10/13/19 23:05 93 12 24 10/13/19 21:23 89 13 24 10/13/19 21:00 24 10/13/19 20:40 98 118/60 10/13/19 20:00 Mechanical Ventilator 10/13/19 20:00 97.9 95 20 110/60 (77) 100 10/13/19 19:39 91 18 24 10/13/19 19:27 91 10/13/19 17:00 90 18 24 10/13/19 16:00 90 10/13/19 16:00 98.8 91 20 101/52 (68) 100 10/13/19 16:00 Mechanical Ventilator 10/13/19 15:00 90 18 24 10/13/19 13:00 91 18 24 10/13/19 12:00 91 10/13/19 12:00 98.6 89 20 102/57 (72) 99 10/13/19 12:00 24 10/13/19 12:00 Mechanical Ventilator 10/13/19 11:00 89 15 24 I&O Intake and Output 10/13/19 10/14/19 19:00 07:00 Intake Total 435 ml 555 ml Output Total 125 ml 60 ml Balance 310 ml 495 ml Free Water 30 ml 60 ml Tube Feeding 405 ml 495 ml Stool Total 125 ml 60 ml # Voids 1 Dressing: saturated Cardiovascular: RSR Respiratory: decreased breath sounds Abdomen: soft, non-tender, present bowel sounds Extremities: no edema, no tenderness, no cyanosis Laboratory Tests Test 10/14/19 03:20 White Blood Count 18.8 K/UL (4.8-10.8) H Red Blood Count 3.64 M/UL (4.70-6.10) L Hemoglobin 8.6 G/DL (14.2-18.0) L Hematocrit 29.0 % (42.0-52.0) L Mean Corpuscular Volume 80 FL (80-99) Mean Corpuscular Hemoglobin 23.8 PG (27.0-31.0) L Mean Corpuscular Hemoglobin Concent 29.8 G/DL (32.0-36.0) L Red Cell Distribution Width 16.8 % (11.6-14.8) H Platelet Count 646 K/UL (150-450) H Mean Platelet Volume 5.9 FL (6.5-10.1) L Neutrophils (%) (Auto) % (45.0-75.0) Lymphocytes (%) (Auto) % (20.0-45.0) Monocytes (%) (Auto) % (1.0-10.0) Eosinophils (%) (Auto) % (0.0-3.0) Basophils (%) (Auto) % (0.0-2.0) Neutrophils % (Manual) Pending Lymphocytes % (Manual) Pending Platelet Estimate Pending Platelet Morphology Pending Sodium Level 134 MMOL/L (136-145) L Potassium Level 3.4 MMOL/L (3.5-5.1) L Chloride Level 99 MMOL/L (98-107) Carbon Dioxide Level 24 MMOL/L (21-32) Anion Gap 12 mmol/L (5-15) Blood Urea Nitrogen 71 mg/dL (7-18) H Creatinine 3.8 MG/DL (0.55-1.30) H Estimat Glomerular Filtration Rate 15.5 mL/min (>60) Glucose Level 130 MG/DL (74-106) H Calcium Level 9.1 MG/DL (8.5-10.1) Plan Problems: (1) Anemia (2) Hyponatremia (3) Leukocytosis Assessment & Plan: Tracheostomy, left chest pacemaker are again demonstrated. There is bilateral interstitial and airspace disease and bilateral pleural fluid again demonstrated. This appears more severe than on the prior study. Bilateral interstitial and airspace infiltrates versus edema. Bilateral pleural effusions Leukocytosis, anemia, tachycardia, abnormal labs. Wound evaluated and likely etiology of patient's sepsis. Leukocytosis etiology work-up antibiotics per infectious disease Appreciate nephrology input transfuse with dialysis We will follow with recommendations thank you allowing participation's care plan HD access temp HD discussed with medical teams line okay HD as per renal persistent leukocytosis flow cyto noted improving trending down right fem line removed wbc fluctuating h/h stable lft's elevated There is a right pleural effusion Gallbladder demonstrates tiny wall adherent nonmobile echogenic foci, some possible mural calcifications, and comet tail artifact in the anterior wall. Patient unable to report sonographic Kent's sign. Common bile duct measures 4 mm in diameter. No intrahepatic biliary ductal dilatation. Liver demonstrates normal echogenicity, no focal abnormality. There is some surface nodularity. Portal vein and hepatic veins are patent. Pancreas is incompletely visualized due to overlying bowel gas, visualized portions are unremarkable. Spleen is unremarkable. Left kidney measures 8.7 cm in length. Right kidney measures 8.9 cm length. Both kidneys demonstrate increased echogenicity. There is no hydronephrosis. No focal abnormality . Abdominal aorta is partially obscured by bowel gas, visualized portions are non-aneurysmal . A gastrostomy is noted Impression: Tiny wall adherent nonmobile gallbladder echogenic foci, may reflect wall adherent calculi, small polyps, and/or pleural calcifications. Anterior wall comet tail artifact suggests foci of adenomyomatosis. Normal caliber common bile duct Possible hepatic surface nodularity, could indicate cirrhotic change Echogenic kidneys, consistent with medical renal disease. No hydronephrosis Right pleural effusion Gastrostomy Note nonvisualization of portions of the pancreas and abdominal aorta HIDA NEGATIVE trend labs (4) Ventilator dependent (5) Right lower lobe pneumonia (6) Hypokalemia (7) Hyperkalemia (8) Anasarca (9) Decubitus skin ulcer Assessment & Plan: pt presented on admission with generalized edemae.Skin assessed under tracheostomy and no areas of concerns noted. GT Insertion is marginally erythematous with small amt slough at stoma. Unstageable Pressure Injury R elbow. Base of wound is 100% yellow slough, Borders are erythematous. Wound oozing small amt haemopurulent exudate.Darker skin tone without elevation in skin temp or erythema periwound. Pt's penis and scrotum are grossly edematous and enlarged and weeping serous exudate from numerous sites both from penis and scrotum. Two small open wounds noted at base of at base of shaft of penis ,and cnotreras aspect of scrotum. Both wounds oozing large amt sanguineous and serosanguineous exudate. Multiple open wounds with Biofilm at base of each wounds noted to contreras/lateral,inferior and posterior aspects of scrotum. These wounds noted to be oozing moderate amts of serosanguineous exudate. Hypertrophic scar with scattered areas of hyperpigmentation noted to Sacrum. DTPI noted to L Buttocks (L)7cm x (W)9cm. Base of wound is purple and indurated.Darker skin tone without erythema, induration or fluctuance R and L ischial tuberosities. Both heels are boggy with non-blanchable erythema. Tx.Plan: Cleanse wound R elbow with Saline. Apply TheraHoney, Apply Moisture Barrier Paste periwound. Cover with Optifoam drsg.Change Daily and prn. Wash GT site with soap and water.Pat dry. Apply Zinc Oxide Paste to GT site Daily. Leave Open to Air. Apply Zinc Oxide Paste to entire Scrotum, Place ABD pads to R and L lateral, and posterior aspects of scrotum TWICE daily. Apply Cavilon Skin Barrier to malleoli and both Heels. Cover each site with Optifoam drsgs. Change every 7 days and prn. Reposition at least every 2hours or as tolerated. Off-load heels with Pillows. APM/BECCA Mattress overlay. (10) Malnutrition Assessment & Plan: DAILY ESTIMATED NEEDS: Needs based on Renal, critical care, wound/ 61kg 22-30 kcals/kg [id number] total kcals 1.25-2 g protein/kg 76-122 g total protein Fluid per MD, now on HD NUTRITION DIAGNOSIS: * Swallowing difficulty R/T respiratory failure, dysphagia as evidenced by trach/vent dep, PEG dep * Increased kcal/prot needs R/T wound healing as evidenced by admitted w/ multiple pressure injuries including full thickness wounds at junction of Shaft of penis, dorsal scrotum, R elbow, and DTPI @ L buttocks. CURRENT TF:Osmolite 1.2 @ 60ml/hr x 20 hrs + Garo BID ENTERAL NUTRITION RECOMMENDATIONS: Vital AF 1.2 @ 60ml/hr x 20 hrs to provide 1200ml, 1440kcal, 90g prot, 973ml free water * Rec 20 hr run time for GI rest. -> W/ improved GI status, rec Vital AF 1.2, an elemental and carb controlled TF -> monitor lytes and renal fxn closely, monitor need for renal TF -> TF @ goal will provide 1642mg K and 2025mg Phos -> HOB over 30 degrees/ water flush per -------- Trial of Osmolite 1.2 continue for now- Goal of 60ml/hr for 20 hrs (4 hrs bowel rest) to provide 1200ml, 1440 kcal, 67g pro, 984ml free H2O, -> Rec to add prosource 1 pack daily (11g pro) to better meet est pro needs. -> Monitor BG, K closely. Pt would require increased insulin coverage as TF at goal would provide 56g more carbs per day. ADDITIONAL RECOMMENDATIONS: * Per SNF: HT=63" YM=304 lbs (vs EMR wt of 166lbs) -> obtain re-calibrated bedscale wt, rec daily wt monitoring * Wound healing: con't Nephrovite + Garo BID/ Vit C dosing per Nephro * Monitor renal fxn and lytes closely w/ non-renal TF ->K low, phos wnl;updated mag level; rec increased insulin w/ BG labs * Daily wts w/ drop to 118-20 lbs, rec to recalibrate for accurate CBW * Consider DC Miralax if medically appropriate: +rectal tube (11) Uremia (12) CKD (chronic kidney disease) stage 5, GFR less than 15 ml/min (13) Colon distention Assessment & Plan: discussed with GI likely functional as having lots of loose bm rectal tube kub f/u s/p colonoscopy - findings reviewed with GI improved cont diet as tolerated Marked distention of the sigmoid colon. 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 No evidence of bowel wall thickening or pneumatosis 12 mm focus of contrast enhancement in the right pectineus muscle. While nonspecific in appearance, appearance raises concern for a possible pseudoaneurysm. Ill- defined thickening of the pectus medius muscle could indicate some intramuscular hemorrhage. The above findings were phoned to Dr. Urias at the time of interpretation Large bilateral pleural effusions Hazy pulmonary parenchymal opacities as well as dense consolidative opacities most likely represent pulmonary edema, but could represent pneumonia Evidence of anasarca elsewhere, with generalized edema of the subcutaneous fat Bladder wall thickening, raises concern for cystitis. Avalos catheter in place Colonic diverticulosis. No evidence of diverticulitis. Tracheostomy Pacemaker Gastrostomy Gastrostomy again demonstrated in satisfactory position. The stomach is otherwise unremarkable. The distal esophagus and duodenum are unremarkable. Ingested contrast reaches the colon. No small bowel distention or small bowel wall thickening. Interim placement of a rectal tube. There are a few colonic diverticula. No definite evidence of acute diverticulitis. The appendix is prominent in caliber, as previously No free or loculated intraperitoneal gas or fluid is evident. Again demonstrated is marked gaseous distention of the sigmoid colon which measures up to 12.6 cm in diameter, with the proximal aspect located laterally to the distal aspect, and caliber transition in the mesenteric root of both entry points. However, there is stool within the proximal portion which appears to be at least partially contrast opacified, and no definite persisting of the vascular pedicle demonstrated. The liver, gallbladder, bile ducts, pancreas, spleen, adrenals, kidneys are unremarkable. There are accessory splenules demonstrated. No retroperitoneal or mesenteric mass or adenopathy. No pelvic mass or adenopathy. The prostate is enlarged and protrudes into the inferior bladder. The bladder is thick-walled. Previously demonstrated Avalos catheter has been removed. Again demonstrated is a large right pleural effusion and a moderate to large left pleural effusion. Again demonstrated are compressive atelectatic changes of significant portions of both lower lobes. Pacemaker wires are seen within the heart. Previously demonstrated high attenuation focus within the right pectineus muscle is not evident. However, there is a low-attenuation area which measures 2 cm diameter centrally which is not evident previously. There is diffuse edema of the subcutaneous fat. This is less severe than was demonstrated previously. There are degenerative proliferative changes of the lumbar spine. Impression: Abnormal configuration of the sigmoid colon, with marked distention of a sigmoid, inversion of the relationships of the proximal and descending colon, and evidence of immediately apposed transition point raises concern for sigmoid volvulus. However, similarity to the prior exam, presence of what appears to be contrast opacified stool within the dilated segment, and lack of evidence of twisting of the vascular pedicle raises the possibility that this is baseline for this patient or possibly dysfunctional in nature. Correlate with clinical findings Enlarged prostate with protrusion into the bladder floor. Bladder neoplasm not completely excludable as a result Thick-walled bladder, may indicate cystitis or be due to chronic bladder lumen obstruction related to the above Abnormalities right pectineus muscle, with a 2 cm central low attenuation area. Note that previous exam have a high attenuation focus suspicious for a small pseudoaneurysm. 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 Colonic diverticulosis. No evidence of diverticulitis Gastrostomy in good position Rectal tube in good position Large right and moderate to large left pleural effusions. Resultant compressive pulmonary atelectatic changes or graft edema subcutaneous fat, less severe than was demonstrated on prior 08/17/2019 exam. Jonathan Urias Oct 14, 2019 10:40
--- NOTE | 2019-10-14 11:02 | NUR ---
NURSE NOTES: oral and trach care and suction provided. Cleaned patient, wound dressings changed and pictures are taken.
[2019-10-14 12:00] VITALS: BP 113/62
--- NOTE | 2019-10-14 13:32 | Nephrology Progress Note ---
Assessment/Plan Assessment/Plan: A/P 1) ESRD- TTS 2) . acenitobacter / proteus pneumonia s/p rx 3) Chronic respiratory failure - trached on vent - COVID 19 test negative x 2 -continue off antibiotics and follow up Cxs Subjective Date patient seen: Oct 14, 2019 Time patient seen: 13:30 ROS Limited/Unobtainable: Yes Allergies: Coded Allergies: No Known Allergies (Unverified , 06/10/19) Subjective Patient trached on vent Objective Last 24 Hour Vital Signs Date Time Temp Pulse Resp B/P (MAP) Pulse Ox O2 Delivery O2 Flow Rate FiO2 10/14/19 12:40 76 17 24 10/14/19 12:00 24 10/14/19 12:00 74 10/14/19 12:00 98.1 74 14 113/62 (79) 100 10/14/19 12:00 Mechanical Ventilator 10/14/19 10:46 71 12 24 10/14/19 09:12 84 13 24 10/14/19 08:31 154/68 10/14/19 08:30 84 154/68 10/14/19 08:00 82 10/14/19 08:00 Mechanical Ventilator 10/14/19 08:00 24 10/14/19 07:55 98.1 84 16 110/53 (72) 100 10/14/19 07:05 82 12 24 10/14/19 05:36 91 12 24 10/14/19 04:00 86 10/14/19 04:00 24 10/14/19 04:00 Mechanical Ventilator 10/14/19 04:00 98.0 78 18 124/77 (93) 100 10/14/19 03:56 88 17 24 10/14/19 01:24 90 19 24 10/14/19 00:00 Mechanical Ventilator 10/14/19 00:00 98.9 80 20 98/59 (72) 100 10/13/19 23:32 90 10/13/19 23:05 93 12 24 10/13/19 21:23 89 13 24 10/13/19 21:00 24 10/13/19 20:40 98 118/60 10/13/19 20:00 Mechanical Ventilator 10/13/19 20:00 97.9 95 20 110/60 (77) 100 10/13/19 19:39 91 18 24 10/13/19 19:27 91 10/13/19 17:00 90 18 24 10/13/19 16:00 90 10/13/19 16:00 98.8 91 20 101/52 (68) 100 10/13/19 16:00 Mechanical Ventilator 10/13/19 15:00 90 18 24 Intake and Output 10/13/19 10/14/19 19:00 07:00 Intake Total 435 ml 555 ml Output Total 125 ml 60 ml Balance 310 ml 495 ml Free Water 30 ml 60 ml Tube Feeding 405 ml 495 ml Stool Total 125 ml 60 ml # Voids 1 Laboratory Tests 10/14/19 03:20: White Blood Count 18.8H, Red Blood Count 3.64L, Hemoglobin 8.6L, Hematocrit 29.0L, Mean Corpuscular Volume 80, Mean Corpuscular Hemoglobin 23.8L, Mean Corpuscular Hemoglobin Concent 29.8L, Red Cell Distribution Width 16.8H, Platelet Count 646H, Mean Platelet Volume 5.9L, Neutrophils (%) (Auto) , Lymphocytes (%) (Auto) , Monocytes (%) (Auto) , Eosinophils (%) (Auto) , Basophils (%) (Auto) , Differential Total Cells Counted 100, Neutrophils % ( Manual) 69, Lymphocytes % (Manual) 16L, Monocytes % (Manual) 4, Eosinophils % ( Manual) 11H, Basophils % (Manual) 0, Band Neutrophils 0, Platelet Estimate IncreasedH, Platelet Morphology Normal, Hypochromasia 2+, Anisocytosis 1+, Sodium Level 134L, Potassium Level 3.4L, Chloride Level 99, Carbon Dioxide Level 24, Anion Gap 12, Blood Urea Nitrogen 71H, Creatinine 3.8H, Estimat Glomerular Filtration Rate 15.5, Glucose Level 130H, Calcium Level 9.1 Height (Feet): 5 Height (Inches): 10.00 Weight (Pounds): 123 General Appearance: no apparent distress EENT: normal ENT inspection Neck: normal alignment, supple Cardiovascular: normal rate Respiratory/Chest: rhonchi - bilaterally Abdomen: non tender, soft Edema: no edema noted Arm (L), no edema noted Arm (R), no edema noted Leg (L), no edema noted Leg (R), no edema noted Pedal (L), no edema noted Pedal (R), no edema noted Generalized Jose Shaw MD Oct 14, 2019 13:32
--- NOTE | 2019-10-14 14:13 | NUR ---
CASE MANAGEMENT: REVIEW 10/14/19 SI: ESRD on HD . CHRONIC LEUKOCYTOSIS 98.1 74 14 113/62 SAT 100% MECH VENT FIO2 24% WBC+18.8 H/H-8.6/29.0 K-3.4 BUN+71 CR+3.8 IS: EPOETIN SQ MWF LACTULOSE GT Q12 SS INSULIN AC+HS : STEP DOWN UNIT PLAN: DCP: PATIENT HAS BEEN ACCEPTED TO [facility] WITH OUTPATIENT HD AT [facility] PENDING HEALTH PLAN MARISABEL. PER HEALTH PLAN CM HD MARISABEL WAS SENT TO DIALYSIS CENTER
--- NOTE | 2019-10-14 14:37 | NUR ---
NURSE NOTES: Spoke to Dorothy, office staff from [facility] to confirm dialysis appointment for today from Dr. Daryl barlow. Office staff noted to relay message to the dialysis nurse. Awaiting for call back.
[2019-10-14 16:00] VITALS: BP 119/52
--- NOTE | 2019-10-14 18:12 | NUR ---
NURSE NOTES: Called [facility] again and spoke to NIYAH dialysis nurse. She stated there is no nurse available to do dialysis today since the nurse called in sick. Notified Dr. Shaw regarding the situation; ordered to ask [facility] Dialysis nurse to perform the dialysis if available; if not then dialysis will be reschedule for tomorrow. Spoke to SylvesterRN from [facility]; she stated she can't perform today. Spoke to [facility] again to reschedule dialysis for tomorrow instead.
--- NOTE | 2019-10-14 19:15 | NUR ---
NURSE HAND-OFF REPORT: Important Events on Shift: Patient Status: fair Diet: Nepro 1.8 Pending Orders: Dialysis delay to 10/14 with [facility] Pending Results/Labs:AM lab Pending MD notification:n/a Latest Vital Signs: Temperature 98.7 , Pulse 82 , B/P 119 /52 , Respiratory Rate 16 , O2 SAT 100 , Mechanical Ventilator, O2 Flow Rate 15.0 . Vital Sign Comment: EKG Rhythm: V-Paced Rhythm change?: N MD Notified?: N - MD Response: Latest Delacruz Fall Score: 70 Fall Risk: High Risk Safety Measures: Call light Within Reach, Bed Alarm Zone 1, Side Rails Side Rails x3, Bed position Low and Locked. Fall Precautions: Yellow Socks Report given to TAMICA Hi
--- NOTE | 2019-10-14 19:45 | NUR ---
NURSE NOTES: Report received from TAMICA Johnson. Observed pt lying in the bed, sleeping, arousable. V paced on ekg monitor. Trach to vent, Portex 8, AC 12, TV 550, FIO2 24%, PEEP 5, tolerating well. GT intact, running Nepro at 45cc/hr. Rectal tube intact. R subclavian permacath noted, intact. IV on L H 22G, asymptomatic. Bed in the lowest position. Side rails up x3. Will continue to monitor.
[2019-10-14 20:00] VITALS: BP 121/55
[2019-10-14] MEDS ORDERED: NS 275ml ONE (20:08)
[2019-10-14] MEDS: Dyna-Hex 2% Top Sol 2oz TOPIC SCH (20:12)
[2019-10-15] VITALS: BP 117/49
[2019-10-15] MEDS: NovoLOG Insulin Flexpen SUBQ SCH ×5 (00:15→23:21)
--- NOTE | 2019-10-15 01:37 | NUR ---
NURSE NOTES: No acute distress noted at this time. Bed bath given. Reposition done. Oral care given. VS WNL. SR on manager monitoring. GT intact, no residual noted, zinc oxide applied. Rectal tube intact, bag changed. Will continue to monitor.
[2019-10-15 04:00] VITALS: BP 138/58
[2019-10-15 06:59] LABS: HEMATOCRIT 32.6 % (42.0-52.0); HEMOGLOBIN 9.9 G/DL (14.2-18.0); MEAN CORPUSCULAR VOLUME 79 FL (80-99); PLATELET COUNT 693 K/UL (150-450); RED BLOOD COUNT 4.11 M/UL (4.70-6.10); RED CELL DISTRIBUTION WIDTH 16.7 % (11.6-14.8); WHITE BLOOD COUNT 15.9 K/UL (4.8-10.8)
--- NOTE | 2019-10-15 07:11 | NUR ---
NURSE HAND-OFF REPORT: Important Events on Shift: No acute distress noted at this time. Patient Status: stable Diet: Nepro at 45 Pending Orders: n Pending Results/Labs:n Pending MD notification:n Latest Vital Signs: Temperature 97.9 , Pulse 84 , B/P 138 /58 , Respiratory Rate 15 , O2 SAT 100 , Mechanical Ventilator, O2 Flow Rate 15.0 . Vital Sign Comment: n EKG Rhythm: SR with V-pacing Rhythm change?: N MD Notified?: N - MD Response: Latest Delacruz Fall Score: 70 Fall Risk: High Risk Safety Measures: Call light Within Reach, Bed Alarm Zone 1, Side Rails Side Rails x3, Bed position Low and Locked. Fall Precautions: Yellow Socks Report given to TAMICA العلي.
[2019-10-15 07:25] LABS: ANION GAP 14 mmol/L (5-15); BLOOD UREA NITROGEN 105 mg/dL (7-18); CALCIUM 10.3 MG/DL (8.5-10.1); CARBON DIOXIDE 23 MMOL/L (21-32); CHLORIDE 96 MMOL/L (98-107); CREATININE 4.6 MG/DL (0.55-1.30); POTASSIUM 3.8 MMOL/L (3.5-5.1); SODIUM 133 MMOL/L (136-145)
--- NOTE | 2019-10-15 07:35 | NUR ---
NURSE NOTES: Received report from TAMICA Hi. Patient in bed resting, no active s/s cardiac, respiratory distress noticed at this time. Patient trach to vent, Portex 8 Ac 12 TV 550 Fio2 24% PEEP 5. GT feeding on hold per order ,Nephro @ 45ml/h, IV on left hand 22G, asymptomatic, patent, intact. Endorsed unable to do HD yesterday 10/13 due to no staff available [facility] and MD DWAINE made aware [facility] coming today. Rectal tube running, patent, draining well to gravity at this time. Bed in lowest position, side rails upx3, call light within reach, bed alarm on, Will continue to monitor.
--- NOTE | 2019-10-15 07:35 | Hematology/Onc Progress Note ---
Assessment/Plan Assessment/Plan Assessment/recs # Anemia due to chronic disease/kidney disease as well, gi bleed + occult + noted --> was on iron in the past, now on hold --> has been started on Epogen sq --> as per renal care --> egd done and shows gastritis --> on ppi --> egd showed gastritis, colo recently done --> hgb 9-->8.7-->7.6-->9.2-->8.9-->9.2->9.3-->8.8->9.9-->9.2-->8.1-->8.7-->7.9- ->8.6-->8.9-->8.2->9-->9.3->8.9-->9.5-->10.6->9.2-->10->8.9-->8.3-->8.9-->9.9 --> spep ordered->wnl # Leukocytosis - with multiple infections, VRE UTI, flow is negative --> wbc trend 33-->28-->25->23->22->23->24->17.3-->17-->14->16-->15.6-->14-->14- >13->19->18->17->22->22->19->17-->18->20-->15-->14->16-->14-->17->18-->17->15--> 16 --> on abx, linezolid and zosyn--> zosyn-->gent-->off --> + blood cultures with coag neg staph likely contaminated --> as per id recs --> has ordered a flow cytometry (with pathology) --> does show increased nK cell activity --> JOURDAN 2 and bcr-abl labs ordered (these are send outs)->negative --> plt 585-->613-->649-->669->663-->529-->506-->620 # Elevated ddimer on admission --> duplex lower legs neg for dvt # Respiratory failure --> per pulm, s/p trach --> COVID 19 test negative x 2 # Hyperlipidemia --> statin po # Dysphagia s/p gtube with nepro --> per gi # ESRD with r fem julito --> hd as per renal # Dvt ppx scds Appreciate consultation and matt Rn Subjective HEENT: Denies: no symptoms, eye pain, blurred vision, tearing, double vision, ear pain, ear discharge, nose pain, nose congestion, throat pain, throat swelling, mouth pain, mouth swelling, other Cardiovascular: Denies: no symptoms, chest pain, edema, irregular heart rate, lightheadedness, palpitations, syncope, other Respiratory: Denies: no symptoms, cough, shortness of breath, SOB with excertion, SOB at rest, sputum, wheezing, other Gastrointestinal/Abdominal: Denies: no symptoms, abdomen distended, abdominal pain, black stools, tarry stools, blood in stool, constipated, diarrhea, difficulty swallowing, nausea, poor appetite, poor fluid intake, rectal bleeding , vomiting, other Genitourinary: Denies: no symptoms, burning, discharge, frequency, flank pain, hematuria, incontinence, pain, urgency, other Neurologic/Psychiatric: Denies: no symptoms, anxiety, depressed, emotional problems, headache, numbness, paresthesia, pre-existing deficit, seizure, tingling, tremors, weakness, other Endocrine: Denies: no symptoms, excessive sweating, flushing, intolerance to cold, intolerance to heat, increased hunger, increased thirst, increased urine, unexplained weight gain, unexplained weight loss, other Hematologic/Lymphatic: Denies: no symptoms, anemia, easy bleeding, easy bruising, adenopathy, other Allergies: Coded Allergies: No Known Allergies (Unverified , 06/10/19) Subjective 08/15 meds noted, no bleeding, hgb 8.8, wbc 28, path flow pending 08/16 flow pending dw pathologist, results pending, wbc 25, hgb 9 08/17 labs reviewed, meds reviewed, meds noted, no night sweats 08/19 remains obtunded, on vent/trach, no bleeding wbc 21.7 08/20 labs have been reviewed, no bleeding, wbc still elev, path reviewed 08/21 labs are noted, no bleeding, on vent, wbc better 08/22 labs noted, no bleeding, meds reviewed, wbc 24 hgb 7.6 08/23 vent, off abx, c diff negative, h/h stable 08/24 labs reviewed, on abx, wbc 17, hgb 8.9, no hemolysis 08/26 reviewed flow and is negative for leukemia, matt rn 08/27 meds reviewed, no night sweats, matt rn, no major bleeding 08/28 meds reivewed, labs noted 08/29 wbc is stable, approx 15, hgb 8.8, no hemolysis 08/30 labs are noted, is for colo today, hgb 9.9 08/31 right fem julito in place, unchanged, hgb 9.2, gi aware 09/01 labs noted, hgb 8.8, plt >600, no bleeding 09/02 labs noted, no bleeding, with elev wbc still, no new changes 09/03 meds are noted, no bleeding, labs reviewed hgb 8.6 09/04 no major events, hd as per renal, abx, no bleeding hgb low 09/05 labs are noted, no bleeding, meds have been reviewed 09/06 no new labs no hemolysis, cbc is noted, no bleeding 09/07 meds reviewed, no bleeding, matt rn, permacath functioning well 09/09 meds reviewed, wbc still elevated, as per id recs, cbc noted 09/10 is obtunded, with gutbe in place, labs reviewed 09/11 obtunded, as per id, observe now off abx, labs noted, wbc 19 09/12 cbc is pending, remains on epogen, also off abx 09/13 labs reviewed, no bleeding, elev wbc, no night sweats 09/14 meds noted, no bleeding, wbc 19, hgb 9.5, no night sweats 09/21 obtunded, remains on vent, labs noted, no bleeding, hgb 8.9 09/22 obtunded, labs noted, no bleeding, on vent, unchanged 09/23 unchanges, wbc remains elevated 20k, on abx, on vent 09/24 labs have been reviewed, no bleeding, wbc 15, may need abx 09/25 formula gtube changed, labs noted, remains obtunded, hgb 9.3 09/26 labs have been reviewed, no bleeding, matt rn, no night sweats 09/27 meds reviewed, no bleeding, wbc 14, on abx, remains obtunded 09/28 remains obtunded, no bleeding, wbc better, hgb 8.9, no hemolysis, plt 506 09/30 on colisitn, wbc elevated, cefepime added per id, hgb stable 10/01 labs reviewed, no bleeding, matt rn, no major events noted, wbc 14, hgb 10.6 10/02 labs have been noted, hgb 9.2, wbc 17, on abx, matt rn 10/03 continue on tube feeds, no bleeding, on vent, wbc remains elevated 10/04 remains ibtunded, is on a mechanical ventilator with tube feeds noted 10/05 labs are noted, hgb 8.6, wbc remains elevated, have ordered for spep 10/07 obtunded on vent, with gtube feeds, labs reviewed, matt rn 10/08 labs are noted, on vent/trach, hgb 10.2, remains obtunded 10/09 labns noted, wbc 15, hgb 8.9, remains altered, on tfs 10/10 labs noted, holding tube feeds, matt rn, hg stable 8.3 currently 10/11 remains on tfs, supportive care, labs noted, no bleeding 10/12 remains obtunded, hgb 8.9, no hemolysis is seen 10/14 labs reviewed, no bleeding, pending potential hd if rn available Objective Objective Current Medications Medications (Trade) Dose Ordered Sig/Leonel Route PRN Reason Start Time Stop Time Status Last Admin Dose Admin Acetaminophen (Tylenol) 650 mg Q4H PRN GT Mild Pain (Pain Scale 1-3) 09/21/19 12:45 10/21/19 12:44 10/07/19 23:28 Chlorhexidine Gluconate (Felipa-Hex 2%) 1 applic DAILY@2000 TOPIC 09/12/19 20:00 12/11/19 19:59 10/14/19 20:12 Clonidine HCl (Catapres Tab) 0.1 mg Q4H PRN GT For High Blood Pressure 09/09/19 12:30 12/08/19 05:29 09/15/19 04:10 Dextrose (Dextrose 50%) 25 ml Q30M PRN IV Hypoglycemia 08/09/19 07:30 11/07/19 07:29 Dextrose (Dextrose 50%) 50 ml Q30M PRN IV Hypoglycemia 08/09/19 07:30 11/07/19 07:29 Diphenoxylate HCl/ Atropine (Lomotil) 2.5 mg QID PRN ORAL Diarrhea 09/24/19 08:45 10/24/19 08:44 Epoetin Andreas (Epoetin Andreas(ESRD on dialysis)) 10,000 unit SUBQ 10/09/19 21:00 01/07/20 20:59 10/13/19 20:41 Famotidine (Pepcid) 20 mg DAILY GT 08/30/19 09:00 11/28/19 08:59 10/14/19 08:31 Insulin Aspart (NovoLOG) Q6HR SUBQ 09/25/19 18:00 11/07/19 11:29 10/15/19 05:46 Lactobacillus Acidophilus (Culturelle) 1 tab EVERY 12 HOURS GT 10/03/19 21:00 12/13/19 17:59 10/14/19 20:12 Metoprolol Tartrate (Lopressor) 200 mg Q12HR GT 08/09/19 09:00 11/07/19 08:59 10/14/19 20:12 Minoxidil (Loniten) 5 mg DAILY GT 08/09/19 09:00 11/07/19 08:59 10/14/19 08:31 Zinc Oxide (Zinc Oxide) 1 applic EVERY 12 HOURS TOPIC 10/03/19 09:00 11/08/19 17:59 10/14/19 20:13 Last 24 Hour Vital Signs Date Time Temp Pulse Resp B/P (MAP) Pulse Ox O2 Delivery O2 Flow Rate FiO2 10/15/19 07:19 83 14 24 10/15/19 05:13 84 15 24 10/15/19 04:00 24 10/15/19 04:00 97.9 82 16 138/58 (84) 100 10/15/19 04:00 84 10/15/19 04:00 Mechanical Ventilator 10/15/19 03:43 82 16 24 10/15/19 01:51 56 13 24 10/15/19 00:00 98.2 76 14 117/49 (71) 100 10/15/19 00:00 Mechanical Ventilator 10/15/19 00:00 70 10/14/19 23:46 78 14 24 10/14/19 21:54 75 16 24 10/14/19 20:12 78 121/55 10/14/19 20:00 85 10/14/19 20:00 98.2 85 14 121/55 (77) 100 10/14/19 20:00 24 10/14/19 20:00 Mechanical Ventilator 10/14/19 19:29 70 14 24 10/14/19 17:06 82 16 24 10/14/19 16:00 24 10/14/19 16:00 98.7 82 13 119/52 (74) 100 10/14/19 16:00 80 10/14/19 16:00 Mechanical Ventilator 10/14/19 14:56 78 14 24 10/14/19 12:40 76 17 24 10/14/19 12:00 24 10/14/19 12:00 74 10/14/19 12:00 98.1 74 14 113/62 (79) 100 10/14/19 12:00 Mechanical Ventilator 10/14/19 10:46 71 12 24 10/14/19 09:12 84 13 24 10/14/19 08:31 154/68 10/14/19 08:30 84 154/68 10/14/19 08:00 82 10/14/19 08:00 Mechanical Ventilator 10/14/19 08:00 24 10/14/19 07:55 98.1 84 16 110/53 (72) 100 10/14/19 07:05 82 12 24 10/14/19 05:36 91 12 24 10/14/19 04:00 86 10/14/19 04:00 24 10/14/19 04:00 Mechanical Ventilator 10/14/19 04:00 98.0 78 18 124/77 (93) 100 10/14/19 03:56 88 17 24 10/14/19 01:24 90 19 24 10/14/19 00:00 Mechanical Ventilator 10/14/19 00:00 98.9 80 20 98/59 (72) 100 10/13/19 23:32 90 10/13/19 23:05 93 12 24 10/13/19 21:23 89 13 24 10/13/19 21:00 24 10/13/19 20:40 98 118/60 10/13/19 20:00 Mechanical Ventilator 10/13/19 20:00 97.9 95 20 110/60 (77) 100 10/13/19 19:39 91 18 24 10/13/19 19:27 91 10/13/19 17:00 90 18 24 10/13/19 16:00 90 10/13/19 16:00 98.8 91 20 101/52 (68) 100 10/13/19 16:00 Mechanical Ventilator 10/13/19 15:00 90 18 24 10/13/19 13:00 91 18 24 10/13/19 12:00 91 10/13/19 12:00 98.6 89 20 102/57 (72) 99 10/13/19 12:00 24 10/13/19 12:00 Mechanical Ventilator 10/13/19 11:00 89 15 24 10/13/19 09:00 89 15 24 10/13/19 08:13 103 106/44 10/13/19 08:07 106/44 10/13/19 08:00 Mechanical Ventilator 10/13/19 08:00 24 10/13/19 08:00 98.6 103 20 106/44 (64) 99 10/13/19 07:40 105 Intake and Output 10/14/19 10/15/19 19:00 07:00 Intake Total 560 ml 695 ml Output Total 50 ml Balance 560 ml 645 ml Free Water 200 ml 200 ml Tube Feeding 360 ml 495 ml Stool Total 50 ml # Bowel Movements 100 Labs Test 10/12/19 12:08 10/13/19 03:15 10/14/19 03:20 10/15/19 05:15 POC Whole Blood Glucose 103 MG/DL (74-106) White Blood Count 15.0 K/UL (4.8-10.8) 18.8 K/UL (4.8-10.8) 15.9 K/UL (4.8-10.8) Red Blood Count 3.65 M/UL (4.70-6.10) 3.64 M/UL (4.70-6.10) 4.11 M/UL (4.70-6.10) Hemoglobin 8.9 G/DL (14.2-18.0) 8.6 G/DL (14.2-18.0) 9.9 G/DL (14.2-18.0) Hematocrit 29.0 % (42.0-52.0) 29.0 % (42.0-52.0) 32.6 % (42.0-52.0) Mean Corpuscular Volume 79 FL (80-99) 80 FL (80-99) 79 FL (80-99) Mean Corpuscular Hemoglobin 24.3 PG (27.0-31.0) 23.8 PG (27.0-31.0) 24.1 PG (27.0-31.0) Mean Corpuscular Hemoglobin Concent 30.6 G/DL (32.0-36.0) 29.8 G/DL (32.0-36.0) 30.4 G/DL (32.0-36.0) Red Cell Distribution Width 16.7 % (11.6-14.8) 16.8 % (11.6-14.8) 16.7 % (11.6-14.8) Platelet Count 620 K/UL (150-450) 646 K/UL (150-450) 693 K/UL (150-450) Mean Platelet Volume 6.1 FL (6.5-10.1) 5.9 FL (6.5-10.1) 5.7 FL (6.5-10.1) Neutrophils (%) (Auto) 72.2 % (45.0-75.0) % (45.0-75.0) % (45.0-75.0) Lymphocytes (%) (Auto) 13.1 % (20.0-45.0) % (20.0-45.0) % (20.0-45.0) Monocytes (%) (Auto) 8.5 % (1.0-10.0) % (1.0-10.0) % (1.0-10.0) Eosinophils (%) (Auto) 5.6 % (0.0-3.0) % (0.0-3.0) % (0.0-3.0) Basophils (%) (Auto) 0.6 % (0.0-2.0) % (0.0-2.0) % (0.0-2.0) Sodium Level 135 MMOL/L (136-145) 134 MMOL/L (136-145) 133 MMOL/L (136-145) Potassium Level 3.5 MMOL/L (3.5-5.1) 3.4 MMOL/L (3.5-5.1) 3.8 MMOL/L (3.5-5.1) Chloride Level 99 MMOL/L (98-107) 99 MMOL/L (98-107) 96 MMOL/L (98-107) Carbon Dioxide Level 26 MMOL/L (21-32) 24 MMOL/L (21-32) 23 MMOL/L (21-32) Anion Gap 10 mmol/L (5-15) 12 mmol/L (5-15) 14 mmol/L (5-15) Blood Urea Nitrogen 37 mg/dL (7-18) 71 mg/dL (7-18) 105 mg/dL (7-18) Creatinine 2.6 MG/DL (0.55-1.30) 3.8 MG/DL (0.55-1.30) 4.6 MG/DL (0.55-1.30) Estimat Glomerular Filtration Rate 24.0 mL/min (>60) 15.5 mL/min (>60) 12.4 mL/min (>60) Glucose Level 144 MG/DL (74-106) 130 MG/DL (74-106) 158 MG/DL (74-106) Calcium Level 9.2 MG/DL (8.5-10.1) 9.1 MG/DL (8.5-10.1) 10.3 MG/DL (8.5-10.1) Differential Total Cells Counted 100 Neutrophils % (Manual) 69 % (45-75) Lymphocytes % (Manual) 16 % (20-45) Monocytes % (Manual) 4 % (1-10) Eosinophils % (Manual) 11 % (0-3) Basophils % (Manual) 0 % (0-2) Band Neutrophils 0 % (0-8) Platelet Estimate Increased Platelet Morphology Normal Hypochromasia 2+ Anisocytosis 1+ Height (Feet): 5 Height (Inches): 10.00 Weight (Pounds): 123 Objective Physical Exam General Appearance: nad, Chronically Ill Head: normocephalic Eyes: right eye PERRL - Will not open left eye ENT: moist mucus membranes Neck: other - submandibular mass R, fairly rigid with resistance to rotation to L, tracheotomy Respiratory: decreased breath sounds, crackles, other - pacemaker, vent+ Cardiovascular: regular rate, rhythm, edema - anasarca Gastrointestinal: non tender, distended, other - G tube Genitourinary: other Musculoskeletal: other - Contractures all extremities Neurologic: sensory intact, motor weakness, responsive Psychiatric: other Skin: Decubitus/Ulcer - Stage III right elbow, stage III left elbow, stage II sacrum, stage III scrotum, warm/dry Fitz Campos MD Oct 15, 2019 07:35
--- NOTE | 2019-10-15 07:39 | General Progress Note ---
Assessment/Plan Assessment/Plan: Assessment - abdominal distention, due to colonic dysmotility, - colonoscopy negative to hepatic flexure - diarrhea - presumed TF related - abnormal LFT - Anemia - leukocytosis - stool OB (+) - EGD --> gastritis - Renal failure - Anasarca - resp failure, trach - dysphagia, GT - encephalopathy, contracted - poor px Recommendations - continue TF - rectal tube - roll side to side as feasible (hard due to severe contractions) - Elevate HOB - f/u labs - PPI - abx - supportive care Subjective ROS Limited/Unobtainable: No Allergies: Coded Allergies: No Known Allergies (Unverified , 06/10/19) Objective Last 24 Hour Vital Signs Date Time Temp Pulse Resp B/P (MAP) Pulse Ox O2 Delivery O2 Flow Rate FiO2 10/15/19 07:19 83 14 24 10/15/19 05:13 84 15 24 10/15/19 04:00 24 10/15/19 04:00 97.9 82 16 138/58 (84) 100 10/15/19 04:00 84 10/15/19 04:00 Mechanical Ventilator 10/15/19 03:43 82 16 24 10/15/19 01:51 56 13 24 10/15/19 00:00 98.2 76 14 117/49 (71) 100 10/15/19 00:00 Mechanical Ventilator 10/15/19 00:00 70 10/14/19 23:46 78 14 24 10/14/19 21:54 75 16 24 10/14/19 20:12 78 121/55 10/14/19 20:00 85 10/14/19 20:00 98.2 85 14 121/55 (77) 100 10/14/19 20:00 24 10/14/19 20:00 Mechanical Ventilator 10/14/19 19:29 70 14 24 10/14/19 17:06 82 16 24 10/14/19 16:00 24 10/14/19 16:00 98.7 82 13 119/52 (74) 100 10/14/19 16:00 80 10/14/19 16:00 Mechanical Ventilator 10/14/19 14:56 78 14 24 10/14/19 12:40 76 17 24 10/14/19 12:00 24 10/14/19 12:00 74 10/14/19 12:00 98.1 74 14 113/62 (79) 100 10/14/19 12:00 Mechanical Ventilator 10/14/19 10:46 71 12 24 10/14/19 09:12 84 13 24 10/14/19 08:31 154/68 10/14/19 08:30 84 154/68 10/14/19 08:00 82 10/14/19 08:00 Mechanical Ventilator 10/14/19 08:00 24 10/14/19 07:55 98.1 84 16 110/53 (72) 100 Intake and Output 10/14/19 10/15/19 19:00 07:00 Intake Total 560 ml 695 ml Output Total 50 ml Balance 560 ml 645 ml Free Water 200 ml 200 ml Tube Feeding 360 ml 495 ml Stool Total 50 ml # Bowel Movements 100 Laboratory Tests 10/15/19 05:15: White Blood Count 15.9H, Red Blood Count 4.11L, Hemoglobin 9.9L, Hematocrit 32.6L, Mean Corpuscular Volume 79L, Mean Corpuscular Hemoglobin 24.1L, Mean Corpuscular Hemoglobin Concent 30.4L, Red Cell Distribution Width 16.7H, Platelet Count 693H, Mean Platelet Volume 5.7L, Neutrophils (%) (Auto) , Lymphocytes (%) (Auto) , Monocytes (%) (Auto) , Eosinophils (%) (Auto) , Basophils (%) (Auto) , Neutrophils % (Manual) [Pending], Lymphocytes % (Manual) [Pending], Platelet Estimate [Pending], Platelet Morphology [Pending], Sodium Level 133L, Potassium Level 3.8, Chloride Level 96L, Carbon Dioxide Level 23, Anion Gap 14, Blood Urea Nitrogen 105H, Creatinine 4.6H, Estimat Glomerular Filtration Rate 12.4, Glucose Level 158H, Calcium Level 10.3H Height (Feet): 5 Height (Inches): 10.00 Weight (Pounds): 123 General Appearance: no apparent distress EENT: normal ENT inspection Neck: supple Cardiovascular: normal rate Respiratory/Chest: decreased breath sounds Abdomen: normal bowel sounds, non tender, soft Extremities: non-tender Deon Landry MD Oct 15, 2019 07:39
--- NOTE | 2019-10-15 07:47 | NUR ---
NURSE NOTES: Paged Dr. Pichardo regarding HD order, awaiting for callback.
[2019-10-15 08:00] VITALS: BP 138/58
--- NOTE | 2019-10-15 08:14 | NUR ---
NURSE NOTES: Dr. Pichardo covered by Dr. Shaw. Per Dr. Shaw, use same order from yesterday for HD today , call [facility]. Called [facility], tele: [phone] spoke with Mary Alice and informed per Dr. Shaw, HD today 10/14 routine.
[2019-10-15] MEDS: Zinc Oxide Oint 2oz TOPIC SCH ×2 (08:40→20:30)
[2019-10-15] MEDS: Lactobacillus-GG tablet GT SCH ×2 (08:40→20:30)
[2019-10-15] MEDS: Metoprolol Tartrate 100mg tab GT SCH ×2 (08:41→20:29)
[2019-10-15] MEDS: Minoxidil 2.5mg tab GT SCH (08:41)
--- NOTE | 2019-10-15 10:25 | NUR ---
NURSE NOTES: Paged Dr. Campos regarding plt level, No new order received at this time, Will continue to follow up.
--- NOTE | 2019-10-15 11:32 | NUR ---
RD ASSESSMENT & RECOMMENDATIONS SEE CARE ACTIVITY FOR COMPLETE ASSESSMENT DAILY ESTIMATED NEEDS: Needs based on Renal, critical care, wound/ 61kg 22-30 kcals/kg 2277-5162 total kcals 1.25-2 g protein/kg 76-122 g total protein Fluid per MD, now on HD NUTRITION DIAGNOSIS: * Swallowing difficulty R/T respiratory failure, dysphagia as evidenced by trach/vent dep, PEG dep * Increased kcal/prot needs R/T wound healing as evidenced by admitted w/ multiple pressure injuries including full thickness wounds at junction of Shaft of penis, dorsal scrotum, R elbow, and DTPI @ L buttocks. CURRENT TF:Now NEPRO @45ml/hr x20 hrs ENTERAL NUTRITION RECOMMENDATIONS: Nepro @45ml/hr x20 hrs + Prosource x1 qdaily to provide 900ml, 1620 kcal, 73g + 11g pro, 654 ml free H2O - Maintain Nepro @goal, as tolerated. - Add PROSOURCE qdaily (11g pro) to better meet est pro needs - Flush per MD/ HOB over 30 degrees. -> If tolerating well, would rec increase to goal of 50ml/hr x20 hrs for 1L, 1800 kcal, 81g pro, 727ml free H2O as daily wts are unclear, and continue to trend wt. ADDITIONAL RECOMMENDATIONS: * Per SNF: HT=63" EN=395 lbs (vs EMR wt of 166lbs) -> obtain re-calibrated bedscale wt, rec daily wt monitoring * Wound healing: con't Nephrovite + Garo BID/ Vit C dosing per Nephro * Monitor renal fxn and lytes closely w/ non-renal TF (K=5.0, 5.5-> wnl) -> Rec increased insulin w/ BG labs (on peter q6) * Monitor BGs w/ noncarb controlled TF, need for long acting insulin * Monitor stool output, need to change TF again-> stool more pasty
[2019-10-15 12:00] VITALS: BP 142/59
--- NOTE | 2019-10-15 12:09 | Pulmonology Progress Note ---
Subjective ROS Limited/Unobtainable: No Constitutional: Denies: fever Gastrointestinal/Abdominal: Reports: other - had EGT & gastric biopsy yesterday Allergies: Coded Allergies: No Known Allergies (Unverified , 06/10/19) All Systems: reviewed and negative except above Objective Last 24 Hour Vital Signs Date Time Temp Pulse Resp B/P (MAP) Pulse Ox O2 Delivery O2 Flow Rate FiO2 10/15/19 10:50 89 15 24 10/15/19 09:00 86 18 24 10/15/19 08:41 84 138/58 10/15/19 08:41 138/58 10/15/19 08:00 98.1 84 16 138/58 (84) 100 10/15/19 08:00 84 10/15/19 08:00 24 10/15/19 08:00 Mechanical Ventilator 10/15/19 07:19 83 14 24 10/15/19 05:13 84 15 24 10/15/19 04:00 24 10/15/19 04:00 97.9 82 16 138/58 (84) 100 10/15/19 04:00 84 10/15/19 04:00 Mechanical Ventilator 10/15/19 03:43 82 16 24 10/15/19 01:51 56 13 24 10/15/19 00:00 98.2 76 14 117/49 (71) 100 10/15/19 00:00 Mechanical Ventilator 10/15/19 00:00 70 10/14/19 23:46 78 14 24 10/14/19 21:54 75 16 24 10/14/19 20:12 78 121/55 10/14/19 20:00 85 10/14/19 20:00 98.2 85 14 121/55 (77) 100 10/14/19 20:00 24 10/14/19 20:00 Mechanical Ventilator 10/14/19 19:29 70 14 24 10/14/19 17:06 82 16 24 10/14/19 16:00 24 10/14/19 16:00 98.7 82 13 119/52 (74) 100 10/14/19 16:00 80 10/14/19 16:00 Mechanical Ventilator 10/14/19 14:56 78 14 24 10/14/19 12:40 76 17 24 Intake and Output 10/14/19 10/15/19 19:00 07:00 Intake Total 560 ml 695 ml Output Total 50 ml Balance 560 ml 645 ml Free Water 200 ml 200 ml Tube Feeding 360 ml 495 ml Stool Total 50 ml # Bowel Movements 100 Laboratory Tests 10/15/19 05:15: White Blood Count 15.9H, Red Blood Count 4.11L, Hemoglobin 9.9L, Hematocrit 32.6L, Mean Corpuscular Volume 79L, Mean Corpuscular Hemoglobin 24.1L, Mean Corpuscular Hemoglobin Concent 30.4L, Red Cell Distribution Width 16.7H, Platelet Count 693H, Mean Platelet Volume 5.7L, Neutrophils (%) (Auto) , Lymphocytes (%) (Auto) , Monocytes (%) (Auto) , Eosinophils (%) (Auto) , Basophils (%) (Auto) , Differential Total Cells Counted 100, Neutrophils % ( Manual) 65, Lymphocytes % (Manual) 23, Monocytes % (Manual) 3, Eosinophils % ( Manual) 9H, Basophils % (Manual) 0, Band Neutrophils 0, Platelet Estimate IncreasedH, Platelet Morphology Normal, Polychromasia 1+, Hypochromasia 2+, Anisocytosis 1+, Microcytosis 1+, Sodium Level 133L, Potassium Level 3.8, Chloride Level 96L, Carbon Dioxide Level 23, Anion Gap 14, Blood Urea Nitrogen 105H, Creatinine 4.6H, Estimat Glomerular Filtration Rate 12.4, Glucose Level 158H, Calcium Level 10.3H Current Medications Medications (Trade) Dose Ordered Sig/Leonel Route PRN Reason Start Time Stop Time Status Last Admin Dose Admin Acetaminophen (Tylenol) 650 mg Q4H PRN GT Mild Pain (Pain Scale 1-3) 09/21/19 12:45 10/21/19 12:44 10/07/19 23:28 Chlorhexidine Gluconate (Felipa-Hex 2%) 1 applic DAILY@1999 TOPIC 09/12/19 20:00 12/11/19 19:59 10/14/19 20:12 Clonidine HCl (Catapres Tab) 0.1 mg Q4H PRN GT For High Blood Pressure 09/09/19 12:30 12/08/19 05:29 09/15/19 04:10 Dextrose (Dextrose 50%) 25 ml Q30M PRN IV Hypoglycemia 08/09/19 07:30 11/07/19 07:29 Dextrose (Dextrose 50%) 50 ml Q30M PRN IV Hypoglycemia 08/09/19 07:30 11/07/19 07:29 Diphenoxylate HCl/ Atropine (Lomotil) 2.5 mg QID PRN ORAL Diarrhea 09/24/19 08:45 10/24/19 08:44 Epoetin Andreas (Epoetin Andreas(ESRD on dialysis)) 10,000 unit WED-WED-WED SUBQ 10/09/19 21:00 01/07/20 20:59 10/13/19 20:41 Famotidine (Pepcid) 20 mg DAILY GT 08/30/19 09:00 11/28/19 08:59 10/15/19 08:40 Insulin Aspart (NovoLOG) Q6HR SUBQ 09/25/19 18:00 11/07/19 11:29 10/15/19 05:46 Lactobacillus Acidophilus (Culturelle) 1 tab EVERY 12 HOURS GT 10/03/19 21:00 12/13/19 17:59 10/15/19 08:40 Loperamide HCl (Imodium) 2 mg Q6H PRN NG Diarrhea 10/15/19 07:45 11/14/19 07:44 Metoprolol Tartrate (Lopressor) 200 mg Q12HR GT 08/09/19 09:00 11/07/19 08:59 10/14/19 20:12 Minoxidil (Loniten) 5 mg DAILY GT 08/09/19 09:00 11/07/19 08:59 10/14/19 08:31 Zinc Oxide (Zinc Oxide) 1 applic EVERY 12 HOURS TOPIC 10/03/19 09:00 11/08/19 17:59 10/15/19 08:40 Assessment/Plan Assessment/Plan Pulmonary Progress Note Assessment/Plan: IMPRESSION: 1. anemia. 2. fevers improved 3. Leukocytosis. 4. hypotension 5. Acute on chronic renal failure. 6. Hyponatremia. 7. Severe protein-calorie malnutrition. 8. Significantly elevated C-reactive protein concerning for infectious etiology. 9. Tracheostomy, G-tube. 10. Ventilator dependence. 11. anasarca 12. Hematuria 13. V pacing 14. hyponatremia 15. transaminitis, HIDA negative PLAN chronic care; unable to place care noted may need CT on vent/ no wean monitor labs and optimize ID follow up dialysis ongoing prognosis poor for recovery impression, plan, and exam edited and reviewed in detail care discussed with RN Subjective ROS Limited/Unobtainable: Yes Allergies: Coded Allergies: No Known Allergies (Unverified , 06/10/19) Subjective stable on vent Objective Vital Signs Noted Height (Feet): 5 Height (Inches): 10.00 Weight (Pounds): 155 Objective GENERAL: Ill-appearing male, chronically debilitated. HEENT: Tracheostomy in midline. Questionable fullness in the submandibular region. LUNGS: Coarse breath sounds. reduced breath sounds CARDIAC: S1, S2. Regular rate and rhythm. ABDOMEN: Soft. G-tube. EXTREMITIES: With noted edema. NEUROLOGICAL: Poorly responsive, weak diffusely. Laboratory Tests noted CXR: Stable Kenny Mccurdy MD Oct 15, 2019 12:09
--- NOTE | 2019-10-15 12:14 | Infectious Diseases Prog Note ---
Assessment/Plan Assessment/Plan A: 1. Pneumonia with Acinetobacter & Proteus treated COVID19 X2 : negative 2. ESRD on HD 3. Leukocytosis 4. Respiratory failure, Ventilator dependent 5. Anemia 6. Elevated transaminase 7. 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 Klebsiella catheter infection s/p removal 10. Diarrhea, C. difficile negative PLAN: 1. Observe off of antibiotic 2. case was D/W wound care nurse Subjective ROS Limited/Unobtainable: Yes Constitutional: Denies: fever Allergies: Coded Allergies: No Known Allergies (Unverified , 06/10/19) Objective Last 24 Hour Vital Signs Date Time Temp Pulse Resp B/P (MAP) Pulse Ox O2 Delivery O2 Flow Rate FiO2 10/15/19 10:50 89 15 24 10/15/19 09:00 86 18 24 10/15/19 08:41 84 138/58 10/15/19 08:41 138/58 10/15/19 08:00 98.1 84 16 138/58 (84) 100 10/15/19 08:00 84 10/15/19 08:00 24 10/15/19 08:00 Mechanical Ventilator 10/15/19 07:19 83 14 24 10/15/19 05:13 84 15 24 10/15/19 04:00 24 10/15/19 04:00 97.9 82 16 138/58 (84) 100 10/15/19 04:00 84 10/15/19 04:00 Mechanical Ventilator 10/15/19 03:43 82 16 24 10/15/19 01:51 56 13 24 10/15/19 00:00 98.2 76 14 117/49 (71) 100 10/15/19 00:00 Mechanical Ventilator 10/15/19 00:00 70 10/14/19 23:46 78 14 24 10/14/19 21:54 75 16 24 10/14/19 20:12 78 121/55 10/14/19 20:00 85 10/14/19 20:00 98.2 85 14 121/55 (77) 100 10/14/19 20:00 24 10/14/19 20:00 Mechanical Ventilator 10/14/19 19:29 70 14 24 10/14/19 17:06 82 16 24 10/14/19 16:00 24 10/14/19 16:00 98.7 82 13 119/52 (74) 100 10/14/19 16:00 80 10/14/19 16:00 Mechanical Ventilator 10/14/19 14:56 78 14 24 10/14/19 12:40 76 17 24 Height (Feet): 5 Height (Inches): 10.00 Weight (Pounds): 123 General Appearance: no acute distress HEENT: status post trach Respiratory/Chest: lungs clear, other - on ventilator Cardiovascular: normal rate Abdomen: distended, other - GT & rectal tube Extremities: no edema Neurologic/Psychiatric: unresponsiveness, aphasia Laboratory Tests Test 10/15/19 05:15 White Blood Count 15.9 K/UL (4.8-10.8) H Red Blood Count 4.11 M/UL (4.70-6.10) L Hemoglobin 9.9 G/DL (14.2-18.0) L Hematocrit 32.6 % (42.0-52.0) L Mean Corpuscular Volume 79 FL (80-99) L Mean Corpuscular Hemoglobin 24.1 PG (27.0-31.0) L Mean Corpuscular Hemoglobin Concent 30.4 G/DL (32.0-36.0) L Red Cell Distribution Width 16.7 % (11.6-14.8) H Platelet Count 693 K/UL (150-450) H Mean Platelet Volume 5.7 FL (6.5-10.1) L Neutrophils (%) (Auto) % (45.0-75.0) Lymphocytes (%) (Auto) % (20.0-45.0) Monocytes (%) (Auto) % (1.0-10.0) Eosinophils (%) (Auto) % (0.0-3.0) Basophils (%) (Auto) % (0.0-2.0) Differential Total Cells Counted 100 Neutrophils % (Manual) 65 % (45-75) Lymphocytes % (Manual) 23 % (20-45) Monocytes % (Manual) 3 % (1-10) Eosinophils % (Manual) 9 % (0-3) H Basophils % (Manual) 0 % (0-2) Band Neutrophils 0 % (0-8) Platelet Estimate Increased H Platelet Morphology Normal Polychromasia 1+ Hypochromasia 2+ Anisocytosis 1+ Microcytosis 1+ Sodium Level 133 MMOL/L (136-145) L Potassium Level 3.8 MMOL/L (3.5-5.1) Chloride Level 96 MMOL/L (98-107) L Carbon Dioxide Level 23 MMOL/L (21-32) Anion Gap 14 mmol/L (5-15) Blood Urea Nitrogen 105 mg/dL (7-18) H Creatinine 4.6 MG/DL (0.55-1.30) H Estimat Glomerular Filtration Rate 12.4 mL/min (>60) Glucose Level 158 MG/DL (74-106) H Calcium Level 10.3 MG/DL (8.5-10.1) H Current Medications Medications (Trade) Dose Ordered Sig/Leonel Route PRN Reason Start Time Stop Time Status Last Admin Dose Admin Acetaminophen (Tylenol) 650 mg Q4H PRN GT Mild Pain (Pain Scale 1-3) 09/21/19 12:45 10/21/19 12:44 10/07/19 23:28 Chlorhexidine Gluconate (Felipa-Hex 2%) 1 applic DAILY@1999 TOPIC 09/12/19 20:00 12/11/19 19:59 10/14/19 20:12 Clonidine HCl (Catapres Tab) 0.1 mg Q4H PRN GT For High Blood Pressure 09/09/19 12:30 12/08/19 05:29 09/15/19 04:10 Dextrose (Dextrose 50%) 25 ml Q30M PRN IV Hypoglycemia 08/09/19 07:30 11/07/19 07:29 Dextrose (Dextrose 50%) 50 ml Q30M PRN IV Hypoglycemia 08/09/19 07:30 11/07/19 07:29 Diphenoxylate HCl/ Atropine (Lomotil) 2.5 mg QID PRN ORAL Diarrhea 09/24/19 08:45 10/24/19 08:44 Epoetin Andreas (Epoetin Andreas(ESRD on dialysis)) 10,000 unit WED-WED-WED SUBQ 10/09/19 21:00 01/07/20 20:59 10/13/19 20:41 Famotidine (Pepcid) 20 mg DAILY GT 08/30/19 09:00 11/28/19 08:59 10/15/19 08:40 Insulin Aspart (NovoLOG) Q6HR SUBQ 09/25/19 18:00 11/07/19 11:29 10/15/19 05:46 Lactobacillus Acidophilus (Culturelle) 1 tab EVERY 12 HOURS GT 10/03/19 21:00 12/13/19 17:59 10/15/19 08:40 Loperamide HCl (Imodium) 2 mg Q6H PRN NG Diarrhea 10/15/19 07:45 11/14/19 07:44 Metoprolol Tartrate (Lopressor) 200 mg Q12HR GT 08/09/19 09:00 11/07/19 08:59 10/14/19 20:12 Minoxidil (Loniten) 5 mg DAILY GT 08/09/19 09:00 11/07/19 08:59 10/14/19 08:31 Zinc Oxide (Zinc Oxide) 1 applic EVERY 12 HOURS TOPIC 10/03/19 09:00 11/08/19 17:59 10/15/19 08:40 Real De Leon MD Oct 15, 2019 12:14
--- NOTE | 2019-10-15 13:28 | NUR ---
NURSE NOTES: Called [facility] second time to clarify HD. Per [facility], HD nurse will callback.
--- NOTE | 2019-10-15 13:57 | Nephrology Progress Note ---
Assessment/Plan Assessment/Plan: A/P 1) ESRD- TTS - due to lack of staffing HD not done yesterday - still attempting to get HD done today - volunteer services supervisor to call at 4 pm if no response 2) .Acenitobacter / proteus pneumonia s/p rx 3) Chronic respiratory failure - trached on vent - COVID 19 test negative x 2 -continue off antibiotics and follow up Cxs Subjective Date patient seen: Oct 15, 2019 Time patient seen: 13:56 ROS Limited/Unobtainable: Yes Allergies: Coded Allergies: No Known Allergies (Unverified , 06/10/19) Subjective Patient trached on vent still awaiting dialysis Objective Last 24 Hour Vital Signs Date Time Temp Pulse Resp B/P (MAP) Pulse Ox O2 Delivery O2 Flow Rate FiO2 10/15/19 12:54 92 16 24 10/15/19 12:00 24 10/15/19 12:00 Mechanical Ventilator 10/15/19 12:00 98.0 90 14 142/59 (86) 100 10/15/19 10:50 89 15 24 10/15/19 09:00 86 18 24 10/15/19 08:41 84 138/58 10/15/19 08:41 138/58 10/15/19 08:00 98.1 84 16 138/58 (84) 100 10/15/19 08:00 84 10/15/19 08:00 24 10/15/19 08:00 Mechanical Ventilator 10/15/19 07:19 83 14 24 10/15/19 05:13 84 15 24 10/15/19 04:00 24 10/15/19 04:00 97.9 82 16 138/58 (84) 100 10/15/19 04:00 84 10/15/19 04:00 Mechanical Ventilator 10/15/19 03:43 82 16 24 10/15/19 01:51 56 13 24 10/15/19 00:00 98.2 76 14 117/49 (71) 100 10/15/19 00:00 Mechanical Ventilator 10/15/19 00:00 70 10/14/19 23:46 78 14 24 10/14/19 21:54 75 16 24 10/14/19 20:12 78 121/55 10/14/19 20:00 85 10/14/19 20:00 98.2 85 14 121/55 (77) 100 10/14/19 20:00 24 10/14/19 20:00 Mechanical Ventilator 10/14/19 19:29 70 14 24 10/14/19 17:06 82 16 24 10/14/19 16:00 24 10/14/19 16:00 98.7 82 13 119/52 (74) 100 10/14/19 16:00 80 10/14/19 16:00 Mechanical Ventilator 10/14/19 14:56 78 14 24 Intake and Output 10/14/19 10/15/19 19:00 07:00 Intake Total 560 ml 695 ml Output Total 50 ml Balance 560 ml 645 ml Free Water 200 ml 200 ml Tube Feeding 360 ml 495 ml Stool Total 50 ml # Bowel Movements 100 Laboratory Tests 10/15/19 05:15: White Blood Count 15.9H, Red Blood Count 4.11L, Hemoglobin 9.9L, Hematocrit 32.6L, Mean Corpuscular Volume 79L, Mean Corpuscular Hemoglobin 24.1L, Mean Corpuscular Hemoglobin Concent 30.4L, Red Cell Distribution Width 16.7H, Platelet Count 693H, Mean Platelet Volume 5.7L, Neutrophils (%) (Auto) , Lymphocytes (%) (Auto) , Monocytes (%) (Auto) , Eosinophils (%) (Auto) , Basophils (%) (Auto) , Differential Total Cells Counted 100, Neutrophils % ( Manual) 65, Lymphocytes % (Manual) 23, Monocytes % (Manual) 3, Eosinophils % ( Manual) 9H, Basophils % (Manual) 0, Band Neutrophils 0, Platelet Estimate IncreasedH, Platelet Morphology Normal, Polychromasia 1+, Hypochromasia 2+, Anisocytosis 1+, Microcytosis 1+, Sodium Level 133L, Potassium Level 3.8, Chloride Level 96L, Carbon Dioxide Level 23, Anion Gap 14, Blood Urea Nitrogen 105H, Creatinine 4.6H, Estimat Glomerular Filtration Rate 12.4, Glucose Level 158H, Calcium Level 10.3H Height (Feet): 5 Height (Inches): 10.00 Weight (Pounds): 123 General Appearance: no apparent distress EENT: normal ENT inspection Neck: normal alignment Cardiovascular: regular rhythm Respiratory/Chest: rhonchi - bilaterally Abdomen: non tender, soft Edema: no edema noted Arm (L), no edema noted Arm (R), no edema noted Leg (L), no edema noted Leg (R), no edema noted Pedal (L), no edema noted Pedal (R), no edema noted Generalized Jose Shaw MD Oct 15, 2019 13:57
[2019-10-15 16:00] VITALS: BP 113/56
--- NOTE | 2019-10-15 16:00 | NUR ---
NURSE NOTES: Called [facility], Tele : [phone], spoke with Anmol informed patient schedule for HD today 10/14, Per Anmol, now telling RN that no HD nurse available at this time, there is no higher authority who can discuss about this case. Dr. Shaw made aware [facility] unavailable at this time, Per try call [facility]. [facility] nurse, Sylvester, called, Per Sylvester, unable to do it, Dr. Shaw made aware [facility] nurse unable to do. Per MD Dr. Pichardo will decide which company to do HD. CN and Director Of Retail Operations made aware.
[2019-10-15] MEDS: Acetaminophen 650mg/20.3ml GT PRN (17:35)
--- NOTE | 2019-10-15 17:38 | NUR ---
NURSE NOTES: Called [facility] Nephrology tele: [phone], spoke with Bertin and informed per Dr. Shaw [facility] HD today.
--- NOTE | 2019-10-15 19:05 | NUR ---
NURSE NOTES: Received report from TAMICA العلي. Patient asleep, afebrile and no respiratory distress. V paced on 5 lead extraction supervisor. On [facility] vent P8, ac 12, TV 550, FiO2 24%, peep 5. With left hand 22g IV line intact, patent and asymptomatic. On Nephro 45cc/hr x 20 hrs via GT intact and infusing well. Needs were attended. HOB elevated. Bed rails are up and wheels are locked. Call light within reach. Continue plan of care. Addendum: 10/15/19 at 1927 by RONEY Wang RN Addendum: Noted also right upper chest dialysis catheter intact and asymptomatic. Dressing intact and clean
--- NOTE | 2019-10-15 19:07 | NUR ---
So (insecticide supervisor)called from [facility] state that will not send [facility] back up of [facility] AND SHE TALK ALREADY TO DR FRAGA
--- NOTE | 2019-10-15 19:09 | NUR ---
RESPIRATORY NOTE: Received pt on AC 12, 550VT, 24%, PEEP +5. Pt is trach-dependent w/ a cuffed, Portex 8 tube. Pt obtunded. B/S ovi. rhonchi, sxn small amounts of thick/thin/frothy, pale-yellow secretions. Vent plugged into red outlet, ambubag at bedside. Pt in no apparent distress at this time. Will continue plan of care.
--- NOTE | 2019-10-15 19:27 | NUR ---
NURSE NOTES: Per Dr. Shaw, order CBC and BMP @ 2267 tomorrow. Order noted, entered, carried out.
--- NOTE | 2019-10-15 19:28 | NUR ---
NURSE HAND-OFF REPORT: Important Events on Shift: HD not done , Dr. Shaw made aware Patient Status: stable at this time Diet: Nephro @45ml/h via GT Pending Orders: HD , [facility] did not show up, [facility] called, refused. Pending Results/Labs: NA Pending MD notification: NA Latest Vital Signs: Temperature 99.0 , Pulse 89 , B/P 113 /56 , Respiratory Rate 18 , O2 SAT 100 , Mechanical Ventilator, O2 Flow Rate 15.0 . Vital Sign Comment: mild elevation on Temperature, Tylenol given once, Ice water given. EKG Rhythm: V-Paced Rhythm change?: N MD Notified?: N - MD Response: Latest Delacruz Fall Score: 70 Fall Risk: High Risk Safety Measures: Call light Within Reach, Bed Alarm Zone 1, Side Rails Side Rails x3, Bed position Low and Locked. Fall Precautions: Yellow Socks Report given to TAMICA SIM.
[2019-10-15 20:00] VITALS: BP 120/56
[2019-10-15] MEDS: Dyna-Hex 2% Top Sol 2oz TOPIC SCH (20:29)
[2019-10-16] VITALS (7 sets, daily range): BP systolic 102–162; BP diastolic 45–93
--- NOTE | 2019-10-16 01:30 | NUR ---
NURSE NOTES: Pt was given bed bath. Gown and linen were changed. Pt tolerated well. Continue plan of care
[2019-10-16] MEDS: NovoLOG Insulin Flexpen SUBQ SCH ×4 (05:27→23:48)
[2019-10-16 06:02] LABS: BASOPHILS % (AUTO) 1.1 % (0.0-2.0); EOSINOPHILS % (AUTO) 6.2 % (0.0-3.0); HEMATOCRIT 35.7 % (42.0-52.0); HEMOGLOBIN 10.6 G/DL (14.2-18.0); LYMPHOCYTES % (AUTO) 17.1 % (20.0-45.0); MEAN CORPUSCULAR VOLUME 80 FL (80-99); MONOCYTES % (AUTO) 7.9 % (1.0-10.0); NEUTROPHILS % (AUTO) 67.8 % (45.0-75.0); PLATELET COUNT 619 K/UL (150-450); RED BLOOD COUNT 4.49 M/UL (4.70-6.10); RED CELL DISTRIBUTION WIDTH 16.8 % (11.6-14.8); WHITE BLOOD COUNT 15.7 K/UL (4.8-10.8)
[2019-10-16 06:19] LABS: ANION GAP 15 mmol/L (5-15); BLOOD UREA NITROGEN 125 mg/dL (7-18); CALCIUM 10.3 MG/DL (8.5-10.1); CARBON DIOXIDE 21 MMOL/L (21-32); CHLORIDE 93 MMOL/L (98-107); CREATININE 5.5 MG/DL (0.55-1.30); POTASSIUM 3.9 MMOL/L (3.5-5.1); SODIUM 129 MMOL/L (136-145)
--- NOTE | 2019-10-16 07:06 | NUR ---
NURSE HAND-OFF REPORT: Important Events on Shift: Pt is still awaiting fro HD schedule. MD and AM nurse are aware Patient Status: Stable monitoring of BUN and Creatinine Diet: Nephro at 45cc/hr Pending Orders: Pending Results/Labs: Pending MD notification Latest Vital Signs: Temperature 98.2 , Pulse 97 , B/P 157 /72 , Respiratory Rate 17 , O2 SAT 100 , Mechanical Ventilator, O2 Flow Rate 15.0 . Vital Sign Comment: N EKG Rhythm: V-Paced Rhythm change?: N MD Notified?: N - MD Response: Latest Delacruz Fall Score: 70 Fall Risk: High Risk Safety Measures: Call light Within Reach, Bed Alarm Zone 1, Side Rails Side Rails x3, Bed position Low and Locked. Fall Precautions: Yellow Socks Report given to TAMICA العلي.
--- NOTE | 2019-10-16 07:14 | NUR ---
NURSE NOTES: Received report from RONEY RN. Patient in bed resting, no active s/s cardiac, respiratory distress noticed at this time. Patient Obtunded, V-paced with HR 80. Trach to vent Portex 8 AC 12 TV 550 Fio2 24% PEEP 5 O2 sat 100%. GT feeding Nephro @ 45ml/h on hold per order. Rectal tube draining at th is time, IV on left hand 22G, asymptomatic, patent, intact. Bed in lowest position, side rails upx3, call light within reach, bed alarm on, Will continue to monitor.
--- NOTE | 2019-10-16 07:30 | NUR ---
NURSE NOTES: Dr. Pichardo aware of HD not done 2 days, per MD use same order for HD. HD order renewed.
--- NOTE | 2019-10-16 07:34 | NUR ---
NURSE NOTES: Called [facility] Tele : [phone] spoke with Neena and informed HD today. Clarify HD was not done for 2 days due to short staff, per Neena, will page On-call HD nurse. Will continue to follow up.
--- NOTE | 2019-10-16 08:16 | Hematology/Onc Progress Note ---
Assessment/Plan Assessment/Plan Assessment/recs # Anemia due to chronic disease/kidney disease as well, gi bleed + occult + noted --> was on iron in the past, now on hold --> has been started on Epogen sq --> as per renal care --> egd done and shows gastritis --> on ppi --> egd showed gastritis, colo recently done --> hgb 9-->8.7-->7.6-->9.2-->8.9-->9.2->9.3-->8.8->9.9-->9.2-->8.1-->8.7-->7.9- ->8.6-->8.9-->8.2->9-->9.3->8.9-->9.5-->10.6->9.2-->10->8.9-->8.3-->8.9-->9.9 --> spep ordered->wnl # Leukocytosis - with multiple infections, VRE UTI, flow is negative --> wbc trend 33-->28-->25->23->22->23->24->17.3-->17-->14->16-->15.6-->14-->14- >13->19->18->17->22->22->19->17-->18->20-->15-->14->16-->14-->17->18-->17->15--> 16 --> on abx, linezolid and zosyn--> zosyn-->gent-->off --> + blood cultures with coag neg staph likely contaminated --> as per id recs --> has ordered a flow cytometry (with pathology) --> does show increased nK cell activity --> JOURDAN 2 and bcr-abl labs ordered (these are send outs)->negative --> plt 585-->613-->649-->669->663-->529-->506-->620 # Elevated ddimer on admission --> duplex lower legs neg for dvt # Respiratory failure --> per pulm, s/p trach --> COVID 19 test negative x 2 # Hyperlipidemia --> statin po # Dysphagia s/p gtube with nepro --> per gi # ESRD with r fem jluito --> hd as per renal # Dvt ppx scds Appreciate consultation and dw Rn Subjective Constitutional: Denies: no symptoms, chills, fever, malaise, weakness, other HEENT: Denies: no symptoms, eye pain, blurred vision, tearing, double vision, ear pain, ear discharge, nose pain, nose congestion, throat pain, throat swelling, mouth pain, mouth swelling, other Cardiovascular: Denies: no symptoms, chest pain, edema, irregular heart rate, lightheadedness, palpitations, syncope, other Respiratory: Denies: no symptoms, cough, shortness of breath, SOB with excertion, SOB at rest, sputum, wheezing, other Genitourinary: Denies: no symptoms, burning, discharge, frequency, flank pain, hematuria, incontinence, pain, urgency, other Neurologic/Psychiatric: Denies: no symptoms, anxiety, depressed, emotional problems, headache, numbness, paresthesia, pre-existing deficit, seizure, tingling, tremors, weakness, other Endocrine: Denies: no symptoms, excessive sweating, flushing, intolerance to cold, intolerance to heat, increased hunger, increased thirst, increased urine, unexplained weight gain, unexplained weight loss, other Allergies: Coded Allergies: No Known Allergies (Unverified , 06/10/19) Subjective 08/15 meds noted, no bleeding, hgb 8.8, wbc 28, path flow pending 08/16 flow pending dw pathologist, results pending, wbc 25, hgb 9 08/17 labs reviewed, meds reviewed, meds noted, no night sweats 08/19 remains obtunded, on vent/trach, no bleeding wbc 21.7 08/20 labs have been reviewed, no bleeding, wbc still elev, path reviewed 08/21 labs are noted, no bleeding, on vent, wbc better 08/22 labs noted, no bleeding, meds reviewed, wbc 24 hgb 7.6 08/23 vent, off abx, c diff negative, h/h stable 08/24 labs reviewed, on abx, wbc 17, hgb 8.9, no hemolysis 08/26 reviewed flow and is negative for leukemia, matt rn 08/27 meds reviewed, no night sweats, matt rn, no major bleeding 08/28 meds reivewed, labs noted 08/29 wbc is stable, approx 15, hgb 8.8, no hemolysis 08/30 labs are noted, is for colo today, hgb 9.9 08/31 right fem julito in place, unchanged, hgb 9.2, gi aware 09/01 labs noted, hgb 8.8, plt >600, no bleeding 09/02 labs noted, no bleeding, with elev wbc still, no new changes 09/03 meds are noted, no bleeding, labs reviewed hgb 8.6 09/04 no major events, hd as per renal, abx, no bleeding hgb low 09/05 labs are noted, no bleeding, meds have been reviewed 09/06 no new labs no hemolysis, cbc is noted, no bleeding 09/07 meds reviewed, no bleeding, matt rn, permacath functioning well 09/09 meds reviewed, wbc still elevated, as per id recs, cbc noted 09/10 is obtunded, with gutbe in place, labs reviewed 09/11 obtunded, as per id, observe now off abx, labs noted, wbc 19 09/12 cbc is pending, remains on epogen, also off abx 09/13 labs reviewed, no bleeding, elev wbc, no night sweats 09/14 meds noted, no bleeding, wbc 19, hgb 9.5, no night sweats 09/21 obtunded, remains on vent, labs noted, no bleeding, hgb 8.9 09/22 obtunded, labs noted, no bleeding, on vent, unchanged 09/23 unchanges, wbc remains elevated 20k, on abx, on vent 09/24 labs have been reviewed, no bleeding, wbc 15, may need abx 09/25 formula gtube changed, labs noted, remains obtunded, hgb 9.3 09/26 labs have been reviewed, no bleeding, matt rn, no night sweats 09/27 meds reviewed, no bleeding, wbc 14, on abx, remains obtunded 09/28 remains obtunded, no bleeding, wbc better, hgb 8.9, no hemolysis, plt 506 09/30 on colisitn, wbc elevated, cefepime added per id, hgb stable 10/01 labs reviewed, no bleeding, dw rn, no major events noted, wbc 14, hgb 10.6 10/02 labs have been noted, hgb 9.2, wbc 17, on abx, matt rn 10/03 continue on tube feeds, no bleeding, on vent, wbc remains elevated 10/04 remains ibtunded, is on a mechanical ventilator with tube feeds noted 10/05 labs are noted, hgb 8.6, wbc remains elevated, have ordered for spep 10/07 obtunded on vent, with gtube feeds, labs reviewed, matt rn 10/08 labs are noted, on vent/trach, hgb 10.2, remains obtunded 10/09 labns noted, wbc 15, hgb 8.9, remains altered, on tfs 10/10 labs noted, holding tube feeds, matt rn, hg stable 8.3 currently 10/11 remains on tfs, supportive care, labs noted, no bleeding 10/12 remains obtunded, hgb 8.9, no hemolysis is seen 10/14 labs reviewed, no bleeding, pending potential hd if rn available 10/15 is on vent, with gtube, labs reviewed, no bleeding, to get hd soon Objective Objective Current Medications Medications (Trade) Dose Ordered Sig/Leonel Route PRN Reason Start Time Stop Time Status Last Admin Dose Admin Acetaminophen (Tylenol) 650 mg Q4H PRN GT Mild Pain (Pain Scale 1-3) 09/21/19 12:45 10/21/19 12:44 10/15/19 17:35 Chlorhexidine Gluconate (Felipa-Hex 2%) 1 applic DAILY@1999 TOPIC 09/12/19 20:00 12/11/19 19:59 10/15/19 20:29 Clonidine HCl (Catapres Tab) 0.1 mg Q4H PRN GT For High Blood Pressure 09/09/19 12:30 12/08/19 05:29 09/15/19 04:10 Dextrose (Dextrose 50%) 25 ml Q30M PRN IV Hypoglycemia 08/09/19 07:30 11/07/19 07:29 Dextrose (Dextrose 50%) 50 ml Q30M PRN IV Hypoglycemia 08/09/19 07:30 11/07/19 07:29 Diphenoxylate HCl/ Atropine (Lomotil) 2.5 mg QID PRN ORAL Diarrhea 09/24/19 08:45 10/24/19 08:44 Epoetin Andreas (Epoetin Andreas(ESRD on dialysis)) 10,000 unit WED- SUBQ 10/09/19 21:00 01/07/20 20:59 10/13/19 20:41 Famotidine (Pepcid) 20 mg DAILY GT 08/30/19 09:00 11/28/19 08:59 10/15/19 08:40 Insulin Aspart (NovoLOG) Q6HR SUBQ 09/25/19 18:00 11/07/19 11:29 10/16/19 05:27 Lactobacillus Acidophilus (Culturelle) 1 tab EVERY 12 HOURS GT 10/03/19 21:00 12/13/19 17:59 10/15/19 20:30 Loperamide HCl (Imodium) 2 mg Q6H PRN NG Diarrhea 10/15/19 07:45 11/14/19 07:44 Metoprolol Tartrate (Lopressor) 200 mg Q12HR GT 08/09/19 09:00 11/07/19 08:59 10/15/19 20:29 Minoxidil (Loniten) 5 mg DAILY GT 08/09/19 09:00 11/07/19 08:59 10/14/19 08:31 Zinc Oxide (Zinc Oxide) 1 applic EVERY 12 HOURS TOPIC 10/03/19 09:00 11/08/19 17:59 10/15/19 20:30 Last 24 Hour Vital Signs Date Time Temp Pulse Resp B/P (MAP) Pulse Ox O2 Delivery O2 Flow Rate FiO2 10/16/19 08:00 98.4 99 17 162/81 (108) 99 10/16/19 05:10 97 17 24 10/16/19 04:00 24 10/16/19 04:00 Mechanical Ventilator 10/16/19 04:00 98.2 90 16 157/72 (100) 100 10/16/19 03:39 95 10/16/19 03:10 92 19 24 10/16/19 01:10 82 22 24 10/16/19 00:00 Mechanical Ventilator 10/16/19 00:00 98.2 72 16 155/93 (113) 100 10/15/19 23:38 82 10/15/19 23:10 76 13 24 10/15/19 20:45 85 17 24 10/15/19 20:29 98 120/56 10/15/19 20:00 Mechanical Ventilator 10/15/19 20:00 24 10/15/19 20:00 99.3 98 16 120/56 (77) 100 10/15/19 19:06 87 10/15/19 19:06 89 18 24 10/15/19 18:05 99.0 10/15/19 16:45 86 17 24 10/15/19 16:00 Mechanical Ventilator 10/15/19 16:00 24 10/15/19 16:00 99.0 86 16 113/56 (75) 100 10/15/19 16:00 87 10/15/19 15:00 72 14 24 10/15/19 12:54 92 16 24 10/15/19 12:00 24 10/15/19 12:00 91 10/15/19 12:00 Mechanical Ventilator 10/15/19 12:00 98.0 90 14 142/59 (86) 100 10/15/19 10:50 89 15 24 10/15/19 09:00 86 18 24 10/15/19 08:41 84 138/58 10/15/19 08:41 138/58 10/15/19 08:00 98.1 84 16 138/58 (84) 100 10/15/19 08:00 84 10/15/19 08:00 24 10/15/19 08:00 Mechanical Ventilator 10/15/19 07:19 83 14 24 10/15/19 05:13 84 15 24 10/15/19 04:00 24 10/15/19 04:00 97.9 82 16 138/58 (84) 100 10/15/19 04:00 84 10/15/19 04:00 Mechanical Ventilator 10/15/19 03:43 82 16 24 10/15/19 01:51 56 13 24 10/15/19 00:00 98.2 76 14 117/49 (71) 100 10/15/19 00:00 Mechanical Ventilator 10/15/19 00:00 70 10/14/19 23:46 78 14 24 10/14/19 21:54 75 16 24 9/5/20 20:12 78 121/55 10/14/19 20:00 85 10/14/19 20:00 98.2 85 14 121/55 (77) 100 10/14/19 20:00 24 10/14/19 20:00 Mechanical Ventilator 10/14/19 19:29 70 14 24 10/14/19 17:06 82 16 24 10/14/19 16:00 24 10/14/19 16:00 98.7 82 13 119/52 (74) 100 10/14/19 16:00 80 10/14/19 16:00 Mechanical Ventilator 10/14/19 14:56 78 14 24 10/14/19 12:40 76 17 24 10/14/19 12:00 24 10/14/19 12:00 74 10/14/19 12:00 98.1 74 14 113/62 (79) 100 10/14/19 12:00 Mechanical Ventilator 10/14/19 10:46 71 12 24 10/14/19 09:12 84 13 24 10/14/19 08:31 154/68 10/14/19 08:30 84 154/68 Intake and Output 10/15/19 10/16/19 19:00 07:00 Intake Total 585 ml 570 ml Output Total 10 ml 5 ml Balance 575 ml 565 ml Free Water 90 ml 30 ml Tube Feeding 495 ml 540 ml Stool Total 10 ml 5 ml Labs Test 10/14/19 03:20 10/15/19 05:15 10/16/19 03:28 White Blood Count 18.8 K/UL (4.8-10.8) 15.9 K/UL (4.8-10.8) 15.7 K/UL (4.8-10.8) Red Blood Count 3.64 M/UL (4.70-6.10) 4.11 M/UL (4.70-6.10) 4.49 M/UL (4.70-6.10) Hemoglobin 8.6 G/DL (14.2-18.0) 9.9 G/DL (14.2-18.0) 10.6 G/DL (14.2-18.0) Hematocrit 29.0 % (42.0-52.0) 32.6 % (42.0-52.0) 35.7 % (42.0-52.0) Mean Corpuscular Volume 80 FL (80-99) 79 FL (80-99) 80 FL (80-99) Mean Corpuscular Hemoglobin 23.8 PG (27.0-31.0) 24.1 PG (27.0-31.0) 23.6 PG (27.0-31.0) Mean Corpuscular Hemoglobin Concent 29.8 G/DL (32.0-36.0) 30.4 G/DL (32.0-36.0) 29.7 G/DL (32.0-36.0) Red Cell Distribution Width 16.8 % (11.6-14.8) 16.7 % (11.6-14.8) 16.8 % (11.6-14.8) Platelet Count 646 K/UL (150-450) 693 K/UL (150-450) 619 K/UL (150-450) Mean Platelet Volume 5.9 FL (6.5-10.1) 5.7 FL (6.5-10.1) 4.6 FL (6.5-10.1) Neutrophils (%) (Auto) % (45.0-75.0) % (45.0-75.0) 67.8 % (45.0-75.0) Lymphocytes (%) (Auto) % (20.0-45.0) % (20.0-45.0) 17.1 % (20.0-45.0) Monocytes (%) (Auto) % (1.0-10.0) % (1.0-10.0) 7.9 % (1.0-10.0) Eosinophils (%) (Auto) % (0.0-3.0) % (0.0-3.0) 6.2 % (0.0-3.0) Basophils (%) (Auto) % (0.0-2.0) % (0.0-2.0) 1.1 % (0.0-2.0) Differential Total Cells Counted 100 100 Neutrophils % (Manual) 69 % (45-75) 65 % (45-75) Lymphocytes % (Manual) 16 % (20-45) 23 % (20-45) Monocytes % (Manual) 4 % (1-10) 3 % (1-10) Eosinophils % (Manual) 11 % (0-3) 9 % (0-3) Basophils % (Manual) 0 % (0-2) 0 % (0-2) Band Neutrophils 0 % (0-8) 0 % (0-8) Platelet Estimate Increased Increased Platelet Morphology Normal Normal Hypochromasia 2+ 2+ Anisocytosis 1+ 1+ Sodium Level 134 MMOL/L (136-145) 133 MMOL/L (136-145) 129 MMOL/L (136-145) Potassium Level 3.4 MMOL/L (3.5-5.1) 3.8 MMOL/L (3.5-5.1) 3.9 MMOL/L (3.5-5.1) Chloride Level 99 MMOL/L (98-107) 96 MMOL/L (98-107) 93 MMOL/L (98-107) Carbon Dioxide Level 24 MMOL/L (21-32) 23 MMOL/L (21-32) 21 MMOL/L (21-32) Anion Gap 12 mmol/L (5-15) 14 mmol/L (5-15) 15 mmol/L (5-15) Blood Urea Nitrogen 71 mg/dL (7-18) 105 mg/dL (7-18) 125 mg/dL (7-18) Creatinine 3.8 MG/DL (0.55-1.30) 4.6 MG/DL (0.55-1.30) 5.5 MG/DL (0.55-1.30) Estimat Glomerular Filtration Rate 15.5 mL/min (>60) 12.4 mL/min (>60) 10.1 mL/min (>60) Glucose Level 130 MG/DL (74-106) 158 MG/DL (74-106) 152 MG/DL (74-106) Calcium Level 9.1 MG/DL (8.5-10.1) 10.3 MG/DL (8.5-10.1) 10.3 MG/DL (8.5-10.1) Polychromasia 1+ Microcytosis 1+ Height (Feet): 5 Height (Inches): 10.00 Weight (Pounds): 123 Objective Physical Exam General Appearance: nad, Chronically Ill Head: normocephalic Eyes: right eye PERRL - Will not open left eye ENT: moist mucus membranes Neck: other - submandibular mass R, fairly rigid with resistance to rotation to L, tracheotomy Respiratory: decreased breath sounds, crackles, other - pacemaker, vent+ Cardiovascular: regular rate, rhythm, edema - anasarca Gastrointestinal: non tender, distended, other - G tube Genitourinary: other Musculoskeletal: other - Contractures all extremities Neurologic: sensory intact, motor weakness, responsive Psychiatric: other Skin: Decubitus/Ulcer - Stage III right elbow, stage III left elbow, stage II sacrum, stage III scrotum, warm/dry Fitz Campos MD Oct 16, 2019 08:16
[2019-10-16] MEDS: Lactobacillus-GG tablet GT SCH ×2 (08:40→20:07)
[2019-10-16] MEDS: Metoprolol Tartrate 100mg tab GT SCH ×2 (08:42→20:07)
[2019-10-16] MEDS: Zinc Oxide Oint 2oz TOPIC SCH ×2 (08:43→20:07)
[2019-10-16] MEDS: Minoxidil 2.5mg tab GT SCH (08:43)
--- NOTE | 2019-10-16 09:37 | Nephrology Progress Note ---
Assessment/Plan Plan MOF ESRD - HD TTS. Anemia of CKD -TUYET. Ordered Stat HD. Subjective Subjective Patient was last dialyzed 5 days ago. Objective Objective Last 24 Hour Vital Signs Date Time Temp Pulse Resp B/P (MAP) Pulse Ox O2 Delivery O2 Flow Rate FiO2 10/16/19 08:43 155/68 10/16/19 08:42 95 155/68 10/16/19 08:00 98.4 99 17 162/81 (108) 99 10/16/19 07:05 97 18 24 10/16/19 05:10 97 17 24 10/16/19 04:00 24 10/16/19 04:00 Mechanical Ventilator 10/16/19 04:00 98.2 90 16 157/72 (100) 100 10/16/19 03:39 95 10/16/19 03:10 92 19 24 10/16/19 01:10 82 22 24 10/16/19 00:00 Mechanical Ventilator 10/16/19 00:00 98.2 72 16 155/93 (113) 100 10/15/19 23:38 82 10/15/19 23:10 76 13 24 10/15/19 20:45 85 17 24 10/15/19 20:29 98 120/56 10/15/19 20:00 Mechanical Ventilator 10/15/19 20:00 24 10/15/19 20:00 99.3 98 16 120/56 (77) 100 10/15/19 19:06 87 10/15/19 19:06 89 18 24 10/15/19 18:05 99.0 10/15/19 16:45 86 17 24 10/15/19 16:00 Mechanical Ventilator 10/15/19 16:00 24 10/15/19 16:00 99.0 86 16 113/56 (75) 100 10/15/19 16:00 87 10/15/19 15:00 72 14 24 10/15/19 12:54 92 16 24 10/15/19 12:00 24 10/15/19 12:00 91 10/15/19 12:00 Mechanical Ventilator 10/15/19 12:00 98.0 90 14 142/59 (86) 100 10/15/19 10:50 89 15 24 Intake and Output 10/15/19 10/16/19 19:00 07:00 Intake Total 585 ml 570 ml Output Total 10 ml 5 ml Balance 575 ml 565 ml Free Water 90 ml 30 ml Tube Feeding 495 ml 540 ml Stool Total 10 ml 5 ml Laboratory Tests 10/16/19 03:28: White Blood Count 15.7H, Red Blood Count 4.49L, Hemoglobin 10.6L, Hematocrit 35.7L, Mean Corpuscular Volume 80, Mean Corpuscular Hemoglobin 23.6L, Mean Corpuscular Hemoglobin Concent 29.7L, Red Cell Distribution Width 16.8H, Platelet Count 619H, Mean Platelet Volume 4.6L, Neutrophils (%) (Auto) 67.8, Lymphocytes (%) (Auto) 17.1L, Monocytes (%) (Auto) 7.9, Eosinophils (%) (Auto) 6.2H, Basophils (%) (Auto) 1.1, Sodium Level 129L, Potassium Level 3.9, Chloride Level 93L, Carbon Dioxide Level 21, Anion Gap 15, Blood Urea Nitrogen 125H, Creatinine 5.5H, Estimat Glomerular Filtration Rate 10.1, Glucose Level 152H, Calcium Level 10.3H Height (Feet): 5 Height (Inches): 10.00 Weight (Pounds): 123 Objective CV RR Trach clean Lungs CTA New Perma Cath RIJ. Abd SNT. BS + E No CCE Erica Pichardo MD Oct 16, 2019 09:37
--- NOTE | 2019-10-16 09:40 | NUR ---
NURSE NOTES: Dr. Pichardo at the nursing station, made aware [facility] did not show up since 10/13 so last HD done on 10/11. Per will change company to [facility]. [facility] nephrology tele: [phone] called, would like to speak to them, confirmed they are coming today.
[2019-10-16] MEDS ORDERED: Heparin Sod 1000 units/ml 10ml IV PRN (09:42)
[2019-10-16] MEDS ORDERED: Heparin 1000 units/ml 1ml Vial INJ PRN (09:45)
--- NOTE | 2019-10-16 10:00 | NUR ---
NURSE NOTES: Sylvester HD nurse from [facility] came, Patient receiving HD today.
--- NOTE | 2019-10-16 10:43 | Infectious Diseases Prog Note ---
"Assessment/Plan Assessment/Plan antibiotics : none A 1. acenitobacter | proteus pneumonia s/p rx 2. respiratory failure 3. leucocytosis 4. COVID 19 test negative x 2 5. renal failure on HD P 1. continue off antibiotics 2. will follow up cultures Subjective ROS Limited/Unobtainable: Yes Allergies: Coded Allergies: No Known Allergies (Unverified , 06/10/19) Objective Last 24 Hour Vital Signs Date Time Temp Pulse Resp B/P (MAP) Pulse Ox O2 Delivery O2 Flow Rate FiO2 10/16/19 08:43 155/68 10/16/19 08:42 95 155/68 10/16/19 08:00 97 10/16/19 08:00 98.4 99 17 162/81 (108) 99 10/16/19 08:00 24 10/16/19 08:00 Mechanical Ventilator 10/16/19 07:05 97 18 24 10/16/19 05:10 97 17 24 10/16/19 04:00 24 10/16/19 04:00 Mechanical Ventilator 10/16/19 04:00 98.2 90 16 157/72 (100) 100 10/16/19 03:39 95 10/16/19 03:10 92 19 24 10/16/19 01:10 82 22 24 10/16/19 00:00 Mechanical Ventilator 10/16/19 00:00 98.2 72 16 155/93 (113) 100 10/15/19 23:38 82 10/15/19 23:10 76 13 24 10/15/19 20:45 85 17 24 10/15/19 20:29 98 120/56 10/15/19 20:00 Mechanical Ventilator 10/15/19 20:00 24 10/15/19 20:00 99.3 98 16 120/56 (77) 100 10/15/19 19:06 87 10/15/19 19:06 89 18 24 10/15/19 18:05 99.0 10/15/19 16:45 86 17 24 10/15/19 16:00 Mechanical Ventilator 10/15/19 16:00 24 10/15/19 16:00 99.0 86 16 113/56 (75) 100 10/15/19 16:00 87 10/15/19 15:00 72 14 24 10/15/19 12:54 92 16 24 10/15/19 12:00 24 10/15/19 12:00 91 10/15/19 12:00 Mechanical Ventilator 10/15/19 12:00 98.0 90 14 142/59 (86) 100 10/15/19 10:50 89 15 24 Height (Feet): 5 Height (Inches): 10.00 Weight (Pounds): 123 HEENT: status post trach Respiratory/Chest: lungs clear Cardiovascular: normal rate, regular rhythm, no gallop/murmur Abdomen: soft, non tender, other - GT Extremities: no edema, other - right subclavian catheter Laboratory Tests Test 10/16/19 03:28 White Blood Count 15.7 K/UL (4.8-10.8) H Red Blood Count 4.49 M/UL (4.70-6.10) L Hemoglobin 10.6 G/DL (14.2-18.0) L Hematocrit 35.7 % (42.0-52.0) L Mean Corpuscular Volume 80 FL (80-99) Mean Corpuscular Hemoglobin 23.6 PG (27.0-31.0) L Mean Corpuscular Hemoglobin Concent 29.7 G/DL (32.0-36.0) L Red Cell Distribution Width 16.8 % (11.6-14.8) H Platelet Count 619 K/UL (150-450) H Mean Platelet Volume 4.6 FL (6.5-10.1) L Neutrophils (%) (Auto) 67.8 % (45.0-75.0) Lymphocytes (%) (Auto) 17.1 % (20.0-45.0) L Monocytes (%) (Auto) 7.9 % (1.0-10.0) Eosinophils (%) (Auto) 6.2 % (0.0-3.0) H Basophils (%) (Auto) 1.1 % (0.0-2.0) Sodium Level 129 MMOL/L (136-145) L Potassium Level 3.9 MMOL/L (3.5-5.1) Chloride Level 93 MMOL/L (98-107) L Carbon Dioxide Level 21 MMOL/L (21-32) Anion Gap 15 mmol/L (5-15) Blood Urea Nitrogen 125 mg/dL (7-18) H Creatinine 5.5 MG/DL (0.55-1.30) H Estimat Glomerular Filtration Rate 10.1 mL/min (>60) Glucose Level 152 MG/DL (74-106) H Calcium Level 10.3 MG/DL (8.5-10.1) H Current Medications Medications (Trade) Dose Ordered Sig/Leonel Route PRN Reason Start Time Stop Time Status Last Admin Dose Admin Acetaminophen (Tylenol) 650 mg Q4H PRN GT Mild Pain (Pain Scale 1-3) 09/21/19 12:45 10/21/19 12:44 10/15/19 17:35 Chlorhexidine Gluconate (Felipa-Hex 2%) 1 applic DAILY@1999 TOPIC 09/12/19 20:00 12/11/19 19:59 10/15/19 20:29 Clonidine HCl (Catapres Tab) 0.1 mg Q4H PRN GT For High Blood Pressure 09/09/19 12:30 12/08/19 05:29 09/15/19 04:10 Dextrose (Dextrose 50%) 25 ml Q30M PRN IV Hypoglycemia 08/09/19 07:30 11/07/19 07:29 Dextrose (Dextrose 50%) 50 ml Q30M PRN IV Hypoglycemia 08/09/19 07:30 11/07/19 07:29 Diphenoxylate HCl/ Atropine (Lomotil) 2.5 mg QID PRN ORAL Diarrhea 09/24/19 08:45 10/24/19 08:44 Epoetin Andreas (Epoetin Andreas(ESRD on dialysis)) 10,000 unit WED-WED-WED SUBQ 10/09/19 21:00 01/07/20 20:59 10/13/19 20:41 Famotidine (Pepcid) 20 mg DAILY GT 08/30/19 09:00 11/28/19 08:59 10/16/19 08:40 Heparin Sodium (Porcine) (Heparin Sod 1000 units/ml 10ml) 2,000 unit ONCE PRN IV for dialysis 10/16/19 09:42 10/16/19 23:59 Heparin Sodium (Porcine) (Heparin) 1,000 unit POSTHD PRN INJ for dialysis use 10/16/19 09:45 10/16/19 23:59 Insulin Aspart (NovoLOG) Q6HR SUBQ 09/25/19 18:00 11/07/19 11:29 10/16/19 05:27 Lactobacillus Acidophilus (Culturelle) 1 tab EVERY 12 HOURS GT 10/03/19 21:00 12/13/19 17:59 10/16/19 08:40 Loperamide HCl (Imodium) 2 mg Q6H PRN NG Diarrhea 10/15/19 07:45 11/14/19 07:44 Metoprolol Tartrate (Lopressor) 200 mg Q12HR GT 08/09/19 09:00 11/07/19 08:59 10/15/19 20:29 Minoxidil (Loniten) 5 mg DAILY GT 08/09/19 09:00 11/07/19 08:59 10/14/19 08:31 Sodium Chloride 1,000 ml @ 500 mls/hr Q2H PRN IVLG sbp<90 during hd 10/16/19 09:37 10/16/19 23:59 Zinc Oxide (Zinc Oxide) 1 applic EVERY 12 HOURS TOPIC 10/03/19 09:00 11/08/19 17:59 10/16/19 08:43 Farnaz Lyle MD Oct 16, 2019 10:43"
--- NOTE | 2019-10-16 10:47 | General Progress Note ---
Assessment/Plan Assessment/Plan: Assessment - abdominal distention, due to colonic dysmotility, - colonoscopy negative to hepatic flexure - diarrhea - presumed TF related - abnormal LFT - Anemia - leukocytosis - stool OB (+) - EGD --> gastritis - Renal failure - Anasarca - resp failure, trach - dysphagia, GT - encephalopathy, contracted - poor px Recommendations - continue TF - rectal tube - roll side to side as feasible (hard due to severe contractions) - Elevate HOB - f/u labs - PPI - abx - supportive care Subjective ROS Limited/Unobtainable: No Allergies: Coded Allergies: No Known Allergies (Unverified , 06/10/19) Objective Last 24 Hour Vital Signs Date Time Temp Pulse Resp B/P (MAP) Pulse Ox O2 Delivery O2 Flow Rate FiO2 10/16/19 08:43 155/68 10/16/19 08:42 95 155/68 10/16/19 08:00 97 10/16/19 08:00 98.4 99 17 162/81 (108) 99 10/16/19 08:00 24 10/16/19 08:00 Mechanical Ventilator 10/16/19 07:05 97 18 24 10/16/19 05:10 97 17 24 10/16/19 04:00 24 10/16/19 04:00 Mechanical Ventilator 10/16/19 04:00 98.2 90 16 157/72 (100) 100 10/16/19 03:39 95 10/16/19 03:10 92 19 24 10/16/19 01:10 82 22 24 10/16/19 00:00 Mechanical Ventilator 10/16/19 00:00 98.2 72 16 155/93 (113) 100 10/15/19 23:38 82 10/15/19 23:10 76 13 24 10/15/19 20:45 85 17 24 10/15/19 20:29 98 120/56 10/15/19 20:00 Mechanical Ventilator 10/15/19 20:00 24 10/15/19 20:00 99.3 98 16 120/56 (77) 100 10/15/19 19:06 87 10/15/19 19:06 89 18 24 10/15/19 18:05 99.0 10/15/19 16:45 86 17 24 10/15/19 16:00 Mechanical Ventilator 10/15/19 16:00 24 10/15/19 16:00 99.0 86 16 113/56 (75) 100 10/15/19 16:00 87 10/15/19 15:00 72 14 24 10/15/19 12:54 92 16 24 10/15/19 12:00 24 10/15/19 12:00 91 10/15/19 12:00 Mechanical Ventilator 10/15/19 12:00 98.0 90 14 142/59 (86) 100 10/15/19 10:50 89 15 24 Intake and Output 10/15/19 10/16/19 19:00 07:00 Intake Total 585 ml 570 ml Output Total 10 ml 5 ml Balance 575 ml 565 ml Free Water 90 ml 30 ml Tube Feeding 495 ml 540 ml Stool Total 10 ml 5 ml Laboratory Tests 10/16/19 03:28: White Blood Count 15.7H, Red Blood Count 4.49L, Hemoglobin 10.6L, Hematocrit 35.7L, Mean Corpuscular Volume 80, Mean Corpuscular Hemoglobin 23.6L, Mean Corpuscular Hemoglobin Concent 29.7L, Red Cell Distribution Width 16.8H, Platelet Count 619H, Mean Platelet Volume 4.6L, Neutrophils (%) (Auto) 67.8, Lymphocytes (%) (Auto) 17.1L, Monocytes (%) (Auto) 7.9, Eosinophils (%) (Auto) 6.2H, Basophils (%) (Auto) 1.1, Sodium Level 129L, Potassium Level 3.9, Chloride Level 93L, Carbon Dioxide Level 21, Anion Gap 15, Blood Urea Nitrogen 125H, Creatinine 5.5H, Estimat Glomerular Filtration Rate 10.1, Glucose Level 152H, Calcium Level 10.3H Height (Feet): 5 Height (Inches): 10.00 Weight (Pounds): 123 General Appearance: no apparent distress EENT: normal ENT inspection Neck: supple Cardiovascular: normal rate Respiratory/Chest: decreased breath sounds Abdomen: normal bowel sounds, non tender, soft Extremities: non-tender Deon Landry MD Oct 16, 2019 10:47
--- NOTE | 2019-10-16 12:21 | Surgery Progress Note ---
Surgery Progress Note Subjective Procedure Performed Right femoral temporary hemodialysis catheter removal Additional Comments no acute events exam stable Objective Last 24 Hour Vital Signs Date Time Temp Pulse Resp B/P (MAP) Pulse Ox O2 Delivery O2 Flow Rate FiO2 10/16/19 12:00 98.4 112 20 140/71 (94) 99 10/16/19 12:00 Mechanical Ventilator 10/16/19 12:00 24 10/16/19 08:43 155/68 10/16/19 08:42 95 155/68 10/16/19 08:00 97 10/16/19 08:00 98.4 99 17 162/81 (108) 99 10/16/19 08:00 24 10/16/19 08:00 Mechanical Ventilator 10/16/19 07:05 97 18 24 10/16/19 05:10 97 17 24 10/16/19 04:00 24 10/16/19 04:00 Mechanical Ventilator 10/16/19 04:00 98.2 90 16 157/72 (100) 100 10/16/19 03:39 95 10/16/19 03:10 92 19 24 10/16/19 01:10 82 22 24 10/16/19 00:00 Mechanical Ventilator 10/16/19 00:00 98.2 72 16 155/93 (113) 100 10/15/19 23:38 82 10/15/19 23:10 76 13 24 10/15/19 20:45 85 17 24 10/15/19 20:29 98 120/56 10/15/19 20:00 Mechanical Ventilator 10/15/19 20:00 24 10/15/19 20:00 99.3 98 16 120/56 (77) 100 10/15/19 19:06 87 10/15/19 19:06 89 18 24 10/15/19 18:05 99.0 10/15/19 16:45 86 17 24 10/15/19 16:00 Mechanical Ventilator 10/15/19 16:00 24 10/15/19 16:00 99.0 86 16 113/56 (75) 100 10/15/19 16:00 87 10/15/19 15:00 72 14 24 10/15/19 12:54 92 16 24 I&O Intake and Output 10/15/19 10/16/19 19:00 07:00 Intake Total 585 ml 570 ml Output Total 10 ml 5 ml Balance 575 ml 565 ml Free Water 90 ml 30 ml Tube Feeding 495 ml 540 ml Stool Total 10 ml 5 ml Dressing: other Wound: other Cardiovascular: RSR Respiratory: decreased breath sounds Abdomen: non-tender, present bowel sounds Extremities: no edema, no tenderness, no cyanosis, other Laboratory Tests Test 10/16/19 03:28 White Blood Count 15.7 K/UL (4.8-10.8) H Red Blood Count 4.49 M/UL (4.70-6.10) L Hemoglobin 10.6 G/DL (14.2-18.0) L Hematocrit 35.7 % (42.0-52.0) L Mean Corpuscular Volume 80 FL (80-99) Mean Corpuscular Hemoglobin 23.6 PG (27.0-31.0) L Mean Corpuscular Hemoglobin Concent 29.7 G/DL (32.0-36.0) L Red Cell Distribution Width 16.8 % (11.6-14.8) H Platelet Count 619 K/UL (150-450) H Mean Platelet Volume 4.6 FL (6.5-10.1) L Neutrophils (%) (Auto) 67.8 % (45.0-75.0) Lymphocytes (%) (Auto) 17.1 % (20.0-45.0) L Monocytes (%) (Auto) 7.9 % (1.0-10.0) Eosinophils (%) (Auto) 6.2 % (0.0-3.0) H Basophils (%) (Auto) 1.1 % (0.0-2.0) Sodium Level 129 MMOL/L (136-145) L Potassium Level 3.9 MMOL/L (3.5-5.1) Chloride Level 93 MMOL/L (98-107) L Carbon Dioxide Level 21 MMOL/L (21-32) Anion Gap 15 mmol/L (5-15) Blood Urea Nitrogen 125 mg/dL (7-18) H Creatinine 5.5 MG/DL (0.55-1.30) H Estimat Glomerular Filtration Rate 10.1 mL/min (>60) Glucose Level 152 MG/DL (74-106) H Calcium Level 10.3 MG/DL (8.5-10.1) H Plan Problems: (1) Anemia (2) Hyponatremia (3) Leukocytosis Assessment & Plan: Tracheostomy, left chest pacemaker are again demonstrated. There is bilateral interstitial and airspace disease and bilateral pleural fluid again demonstrated. This appears more severe than on the prior study. Bilateral interstitial and airspace infiltrates versus edema. Bilateral pleural effusions Leukocytosis, anemia, tachycardia, abnormal labs. Wound evaluated and likely etiology of patient's sepsis. Leukocytosis etiology work-up antibiotics per infectious disease Appreciate nephrology input transfuse with dialysis We will follow with recommendations thank you allowing participation's care plan HD access temp HD discussed with medical teams line okay HD as per renal persistent leukocytosis flow cyto noted improving trending down right fem line removed wbc fluctuating h/h stable lft's elevated There is a right pleural effusion Gallbladder demonstrates tiny wall adherent nonmobile echogenic foci, some possible mural calcifications, and comet tail artifact in the anterior wall. Patient unable to report sonographic Kent's sign. Common bile duct measures 4 mm in diameter. No intrahepatic biliary ductal dilatation. Liver demonstrates normal echogenicity, no focal abnormality. There is some surface nodularity. Portal vein and hepatic veins are patent. Pancreas is incompletely visualized due to overlying bowel gas, visualized portions are unremarkable. Spleen is unremarkable. Left kidney measures 8.7 cm in length. Right kidney measures 8.9 cm length. Both kidneys demonstrate increased echogenicity. There is no hydronephrosis. No focal abnormality . Abdominal aorta is partially obscured by bowel gas, visualized portions are non-aneurysmal . A gastrostomy is noted Impression: Tiny wall adherent nonmobile gallbladder echogenic foci, may reflect wall adherent calculi, small polyps, and/or pleural calcifications. Anterior wall comet tail artifact suggests foci of adenomyomatosis. Normal caliber common bile duct Possible hepatic surface nodularity, could indicate cirrhotic change Echogenic kidneys, consistent with medical renal disease. No hydronephrosis Right pleural effusion Gastrostomy Note nonvisualization of portions of the pancreas and abdominal aorta HIDA NEGATIVE trend labs (4) Ventilator dependent (5) Right lower lobe pneumonia (6) Hypokalemia (7) Hyperkalemia (8) Anasarca (9) Decubitus skin ulcer Assessment & Plan: pt presented on admission with generalized edemae.Skin assessed under tracheostomy and no areas of concerns noted. GT Insertion is marginally erythematous with small amt slough at stoma. Unstageable Pressure Injury R elbow. Base of wound is 100% yellow slough, Borders are erythematous. Wound oozing small amt haemopurulent exudate.Darker skin tone without elevation in skin temp or erythema periwound. Pt's penis and scrotum are grossly edematous and enlarged and weeping serous exudate from numerous sites both from penis and scrotum. Two small open wounds noted at base of at base of shaft of penis ,and contreras aspect of scrotum. Both wounds oozing large amt sanguineous and serosanguineous exudate. Multiple open wounds with Biofilm at base of each wounds noted to contreras/lateral,inferior and posterior aspects of scrotum. These wounds noted to be oozing moderate amts of serosanguineous exudate. Hypertrophic scar with scattered areas of hyperpigmentation noted to Sacrum. DTPI noted to L Buttocks (L)7cm x (W)9cm. Base of wound is purple and indurated.Darker skin tone without erythema, induration or fluctuance R and L ischial tuberosities. Both heels are boggy with non-blanchable erythema. Tx.Plan: Cleanse wound R elbow with Saline. Apply TheraHoney, Apply Moisture Barrier Paste periwound. Cover with Optifoam drsg.Change Daily and prn. Wash GT site with soap and water.Pat dry. Apply Zinc Oxide Paste to GT site Daily. Leave Open to Air. Apply Zinc Oxide Paste to entire Scrotum, Place ABD pads to R and L lateral, and posterior aspects of scrotum TWICE daily. Apply Cavilon Skin Barrier to malleoli and both Heels. Cover each site with Optifoam drsgs. Change every 7 days and prn. Reposition at least every 2hours or as tolerated. Off-load heels with Pillows. APM/BECCA Mattress overlay. (10) Malnutrition Assessment & Plan: DAILY ESTIMATED NEEDS: Needs based on Renal, critical care, wound/ 61kg 22-30 kcals/kg 6770-4601 total kcals 1.25-2 g protein/kg 76-122 g total protein Fluid per MD, now on HD NUTRITION DIAGNOSIS: * Swallowing difficulty R/T respiratory failure, dysphagia as evidenced by trach/vent dep, PEG dep * Increased kcal/prot needs R/T wound healing as evidenced by admitted w/ multiple pressure injuries including full thickness wounds at junction of Shaft of penis, dorsal scrotum, R elbow, and DTPI @ L buttocks. CURRENT TF:Osmolite 1.2 @ 60ml/hr x 20 hrs + Garo BID ENTERAL NUTRITION RECOMMENDATIONS: Vital AF 1.2 @ 60ml/hr x 20 hrs to provide 1200ml, 1440kcal, 90g prot, 973ml free water * Rec 20 hr run time for GI rest. -> W/ improved GI status, rec Vital AF 1.2, an elemental and carb controlled TF -> monitor lytes and renal fxn closely, monitor need for renal TF -> TF @ goal will provide 1642mg K and 2025mg Phos -> HOB over 30 degrees/ water flush per MD -------- Trial of Osmolite 1.2 continue for now- Goal of 60ml/hr for 20 hrs (4 hrs bowel rest) to provide 1200ml, 1440 kcal, 67g pro, 984ml free H2O, -> Rec to add prosource 1 pack daily (11g pro) to better meet est pro needs. -> Monitor BG, K closely. Pt would require increased insulin coverage as TF at goal would provide 56g more carbs per day. ADDITIONAL RECOMMENDATIONS: * Per SNF: HT=63" KN=843 lbs (vs EMR wt of 166lbs) -> obtain re-calibrated bedscale wt, rec daily wt monitoring * Wound healing: con't Nephrovite + Garo BID/ Vit C dosing per Nephro * Monitor renal fxn and lytes closely w/ non-renal TF ->K low, phos wnl;updated mag level; rec increased insulin w/ BG labs * Daily wts w/ drop to 118-20 lbs, rec to recalibrate for accurate CBW * Consider DC Miralax if medically appropriate: +rectal tube (11) Uremia (12) CKD (chronic kidney disease) stage 5, GFR less than 15 ml/min (13) Colon distention Assessment & Plan: discussed with GI likely functional as having lots of loose bm rectal tube kub f/u s/p colonoscopy - findings reviewed with GI improved cont diet as tolerated Marked distention of the sigmoid colon. 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 No evidence of bowel wall thickening or pneumatosis 12 mm focus of contrast enhancement in the right pectineus muscle. While nonspecific in appearance, appearance raises concern for a possible pseudoaneurysm. Ill- defined thickening of the pectus medius muscle could indicate some intramuscular hemorrhage. The above findings were phoned to Dr. Urias at the time of interpretation Large bilateral pleural effusions Hazy pulmonary parenchymal opacities as well as dense consolidative opacities most likely represent pulmonary edema, but could represent pneumonia Evidence of anasarca elsewhere, with generalized edema of the subcutaneous fat Bladder wall thickening, raises concern for cystitis. Avalos catheter in place Colonic diverticulosis. No evidence of diverticulitis. Tracheostomy Pacemaker Gastrostomy Gastrostomy again demonstrated in satisfactory position. The stomach is otherwise unremarkable. The distal esophagus and duodenum are unremarkable. Ingested contrast reaches the colon. No small bowel distention or small bowel wall thickening. Interim placement of a rectal tube. There are a few colonic diverticula. No definite evidence of acute diverticulitis. The appendix is prominent in caliber, as previously No free or loculated intraperitoneal gas or fluid is evident. Again demonstrated is marked gaseous distention of the sigmoid colon which measures up to 12.6 cm in diameter, with the proximal aspect located laterally to the distal aspect, and caliber transition in the mesenteric root of both entry points. However, there is stool within the proximal portion which appears to be at least partially contrast opacified, and no definite persisting of the vascular pedicle demonstrated. The liver, gallbladder, bile ducts, pancreas, spleen, adrenals, kidneys are unremarkable. There are accessory splenules demonstrated. No retroperitoneal or mesenteric mass or adenopathy. No pelvic mass or adenopathy. The prostate is enlarged and protrudes into the inferior bladder. The bladder is thick-walled. Previously demonstrated Avalos catheter has been removed. Again demonstrated is a large right pleural effusion and a moderate to large left pleural effusion. Again demonstrated are compressive atelectatic changes of significant portions of both lower lobes. Pacemaker wires are seen within the heart. Previously demonstrated high attenuation focus within the right pectineus muscle is not evident. However, there is a low-attenuation area which measures 2 cm diameter centrally which is not evident previously. There is diffuse edema of the subcutaneous fat. This is less severe than was demonstrated previously. There are degenerative proliferative changes of the lumbar spine. Impression: Abnormal configuration of the sigmoid colon, with marked distention of a sigmoid, inversion of the relationships of the proximal and descending colon, and evidence of immediately apposed transition point raises concern for sigmoid volvulus. However, similarity to the prior exam, presence of what appears to be contrast opacified stool within the dilated segment, and lack of evidence of twisting of the vascular pedicle raises the possibility that this is baseline for this patient or possibly dysfunctional in nature. Correlate with clinical findings Enlarged prostate with protrusion into the bladder floor. Bladder neoplasm not completely excludable as a result Thick-walled bladder, may indicate cystitis or be due to chronic bladder lumen obstruction related to the above Abnormalities right pectineus muscle, with a 2 cm central low attenuation area. Note that previous exam have a high attenuation focus suspicious for a small pseudoaneurysm. 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 Colonic diverticulosis. No evidence of diverticulitis Gastrostomy in good position Rectal tube in good position Large right and moderate to large left pleural effusions. Resultant compressive pulmonary atelectatic changes or graft edema subcutaneous fat, less severe than was demonstrated on prior 08/17/2019 exam. Jonathan Urias Oct 16, 2019 12:21
--- NOTE | 2019-10-16 13:00 | NUR ---
NURSE NOTES: Patient tolerated HD 2L out, hypotensive at this time 108//52. Will continue to follow up.
--- NOTE | 2019-10-16 13:27 | Pulmonology Progress Note ---
Subjective ROS Limited/Unobtainable: No Constitutional: Denies: fever Gastrointestinal/Abdominal: Reports: other - had EGT & gastric biopsy yesterday Allergies: Coded Allergies: No Known Allergies (Unverified , 06/10/19) All Systems: reviewed and negative except above Objective Last 24 Hour Vital Signs Date Time Temp Pulse Resp B/P (MAP) Pulse Ox O2 Delivery O2 Flow Rate FiO2 10/16/19 12:00 98.4 112 20 140/71 (94) 99 10/16/19 12:00 Mechanical Ventilator 10/16/19 12:00 24 10/16/19 12:00 111 10/16/19 08:43 155/68 10/16/19 08:42 95 155/68 10/16/19 08:00 97 10/16/19 08:00 98.4 99 17 162/81 (108) 99 10/16/19 08:00 24 10/16/19 08:00 Mechanical Ventilator 10/16/19 07:05 97 18 24 10/16/19 05:10 97 17 24 10/16/19 04:00 24 10/16/19 04:00 Mechanical Ventilator 10/16/19 04:00 98.2 90 16 157/72 (100) 100 10/16/19 03:39 95 10/16/19 03:10 92 19 24 10/16/19 01:10 82 22 24 10/16/19 00:00 Mechanical Ventilator 10/16/19 00:00 98.2 72 16 155/93 (113) 100 10/15/19 23:38 82 10/15/19 23:10 76 13 24 10/15/19 20:45 85 17 24 10/15/19 20:29 98 120/56 10/15/19 20:00 Mechanical Ventilator 10/15/19 20:00 24 10/15/19 20:00 99.3 98 16 120/56 (77) 100 10/15/19 19:06 87 10/15/19 19:06 89 18 24 10/15/19 18:05 99.0 10/15/19 16:45 86 17 24 10/15/19 16:00 Mechanical Ventilator 10/15/19 16:00 24 10/15/19 16:00 99.0 86 16 113/56 (75) 100 10/15/19 16:00 87 10/15/19 15:00 72 14 24 Intake and Output 10/15/19 10/16/19 19:00 07:00 Intake Total 585 ml 570 ml Output Total 10 ml 5 ml Balance 575 ml 565 ml Free Water 90 ml 30 ml Tube Feeding 495 ml 540 ml Stool Total 10 ml 5 ml Laboratory Tests 10/16/19 03:28: White Blood Count 15.7H, Red Blood Count 4.49L, Hemoglobin 10.6L, Hematocrit 35.7L, Mean Corpuscular Volume 80, Mean Corpuscular Hemoglobin 23.6L, Mean Corpuscular Hemoglobin Concent 29.7L, Red Cell Distribution Width 16.8H, Platelet Count 619H, Mean Platelet Volume 4.6L, Neutrophils (%) (Auto) 67.8, Lymphocytes (%) (Auto) 17.1L, Monocytes (%) (Auto) 7.9, Eosinophils (%) (Auto) 6.2H, Basophils (%) (Auto) 1.1, Sodium Level 129L, Potassium Level 3.9, Chloride Level 93L, Carbon Dioxide Level 21, Anion Gap 15, Blood Urea Nitrogen 125H, Creatinine 5.5H, Estimat Glomerular Filtration Rate 10.1, Glucose Level 152H, Calcium Level 10.3H Current Medications Medications (Trade) Dose Ordered Sig/Leonel Route PRN Reason Start Time Stop Time Status Last Admin Dose Admin Acetaminophen (Tylenol) 650 mg Q4H PRN GT Mild Pain (Pain Scale 1-3) 09/21/19 12:45 10/21/19 12:44 10/15/19 17:35 Chlorhexidine Gluconate (Felipa-Hex 2%) 1 applic DAILY@1999 TOPIC 09/12/19 20:00 12/11/19 19:59 10/15/19 20:29 Clonidine HCl (Catapres Tab) 0.1 mg Q4H PRN GT For High Blood Pressure 09/09/19 12:30 12/08/19 05:29 09/15/19 04:10 Dextrose (Dextrose 50%) 25 ml Q30M PRN IV Hypoglycemia 08/09/19 07:30 11/07/19 07:29 Dextrose (Dextrose 50%) 50 ml Q30M PRN IV Hypoglycemia 08/09/19 07:30 11/07/19 07:29 Diphenoxylate HCl/ Atropine (Lomotil) 2.5 mg QID PRN ORAL Diarrhea 09/24/19 08:45 10/24/19 08:44 Epoetin Andreas (Epoetin Andreas(ESRD on dialysis)) 10,000 unit WED-WED-WED SUBQ 10/09/19 21:00 01/07/20 20:59 10/13/19 20:41 Famotidine (Pepcid) 20 mg DAILY GT 08/30/19 09:00 11/28/19 08:59 10/16/19 08:40 Heparin Sodium (Porcine) (Heparin Sod 1000 units/ml 10ml) 2,000 unit ONCE PRN IV for dialysis 10/16/19 09:42 10/16/19 23:59 10/16/19 10:48 Heparin Sodium (Porcine) (Heparin) 1,000 unit POSTHD PRN INJ for dialysis use 10/16/19 09:45 10/16/19 23:59 Insulin Aspart (NovoLOG) Q6HR SUBQ 09/25/19 18:00 11/07/19 11:29 10/16/19 05:27 Lactobacillus Acidophilus (Culturelle) 1 tab EVERY 12 HOURS GT 10/03/19 21:00 12/13/19 17:59 10/16/19 08:40 Loperamide HCl (Imodium) 2 mg Q6H PRN NG Diarrhea 10/15/19 07:45 11/14/19 07:44 Metoprolol Tartrate (Lopressor) 200 mg Q12HR GT 08/09/19 09:00 11/07/19 08:59 10/15/19 20:29 Minoxidil (Loniten) 5 mg DAILY GT 08/09/19 09:00 11/07/19 08:59 10/14/19 08:31 Sodium Chloride 1,000 ml @ 500 mls/hr Q2H PRN IVLG sbp<90 during hd 10/16/19 09:37 10/16/19 23:59 Zinc Oxide (Zinc Oxide) 1 applic EVERY 12 HOURS TOPIC 10/03/19 09:00 11/08/19 17:59 10/16/19 08:43 Assessment/Plan Assessment/Plan Pulmonary Progress Note Assessment/Plan: IMPRESSION: 1. anemia. 2. fevers improved 3. Leukocytosis. 4. hypotension 5. Acute on chronic renal failure. 6. Hyponatremia. 7. Severe protein-calorie malnutrition. 8. Significantly elevated C-reactive protein concerning for infectious etiology. 9. Tracheostomy, G-tube. 10. Ventilator dependence. 11. anasarca 12. Hematuria 13. V pacing 14. hyponatremia 15. transaminitis, HIDA negative PLAN chronic care; unable to place care noted may need CT on vent/ no wean monitor labs and optimize ID follow up dialysis ongoing prognosis poor for recovery impression, plan, and exam edited and reviewed in detail care discussed with RN Subjective ROS Limited/Unobtainable: Yes Allergies: Coded Allergies: No Known Allergies (Unverified , 06/10/19) Subjective stable on vent Objective Vital Signs Noted Height (Feet): 5 Height (Inches): 10.00 Weight (Pounds): 155 Objective GENERAL: Ill-appearing male, chronically debilitated. HEENT: Tracheostomy in midline. Questionable fullness in the submandibular region. LUNGS: Coarse breath sounds. reduced breath sounds CARDIAC: S1, S2. Regular rate and rhythm. ABDOMEN: Soft. G-tube. EXTREMITIES: With noted edema. NEUROLOGICAL: Poorly responsive, weak diffusely. Laboratory Tests noted CXR: Stable Kenny Mccurdy MD Oct 16, 2019 13:27
--- NOTE | 2019-10-16 19:00 | NUR ---
NURSE NOTES: Received report from TAMICA العلي. Patient asleep, afebrile and no respiratory distress. V paced on 5 lead phototypesetting equipment monitor. On [facility] vent P8, ac 12, TV 550, FiO2 24%, peep 5. Noted also right upper chest dialysis catheter intact and asymptomatic. Dressing intact and clean. With right thumb 24 IV line intact, patent and asymptomatic. On Nephro 45cc/hr x 20 hrs via GT intact and infusing well. Hemodialysis done today and 2L out. Needs were attended. HOB elevated. Bed rails are up and wheels are locked. Call light within reach. Continue plan of care.
--- NOTE | 2019-10-16 19:08 | NUR ---
NURSE HAND-OFF REPORT: Important Events on Shift: HD done 2L out Patient Status: stable Diet: Nephro @ 45ml/h Pending Orders: NA Pending Results/Labs:NA Pending MD notification:NA Latest Vital Signs: Temperature 98.4 , Pulse 92 , B/P 114 /54 , Respiratory Rate 16 , O2 SAT 100 , Mechanical Ventilator, O2 Flow Rate 15.0 . Vital Sign Comment: stable, after HD, hypotensive, now 114/54 EKG Rhythm: V-Paced Rhythm change?: N MD Notified?: N - MD Response: Latest Delacruz Fall Score: 70 Fall Risk: High Risk Safety Measures: Call light Within Reach, Bed Alarm Zone 1, Side Rails Side Rails x3, Bed position Low and Locked. Fall Precautions: Yellow Socks Report given to TAMICA SIM.
[2019-10-16] MEDS: Dyna-Hex 2% Top Sol 2oz TOPIC SCH (20:07)
--- NOTE | 2019-10-16 20:08 | NUR ---
NURSE NOTES: BP is 107/57 with HR of 85. Pt is post HD dialyis today
[2019-10-16] MEDS: Epoetin Alfa-EPBX(ESRD on dialysis)10,000 unit/ml vial SUBQ SCH (20:53)
[2019-10-17] VITALS: BP 102/52
--- NOTE | 2019-10-17 02:40 | NUR ---
NURSE NOTES: Pt was given partial bed bath. Gown and linen were changed. Dressing changed done PRN. pt tolerated well.
[2019-10-17 04:00] VITALS: BP 129/66
[2019-10-17] MEDS: NovoLOG Insulin Flexpen SUBQ SCH ×4 (05:08→23:46)
[2019-10-17 05:24] LABS: HEMATOCRIT 29.5 % (42.0-52.0); HEMOGLOBIN 9.1 G/DL (14.2-18.0); LYMPHOCYTES % (AUTO) 17.5 % (20.0-45.0); MEAN CORPUSCULAR VOLUME 78 FL (80-99); MONOCYTES % (AUTO) 9.2 % (1.0-10.0); NEUTROPHILS % (AUTO) 67.4 % (45.0-75.0); PLATELET COUNT 720 K/UL (150-450); RED BLOOD COUNT 3.78 M/UL (4.70-6.10); RED CELL DISTRIBUTION WIDTH 16.7 % (11.6-14.8); WHITE BLOOD COUNT 15.1 K/UL (4.8-10.8)
[2019-10-17 05:44] LABS: ANION GAP 9 mmol/L (5-15); BLOOD UREA NITROGEN 64 mg/dL (7-18); CALCIUM 9.2 MG/DL (8.5-10.1); CARBON DIOXIDE 27 MMOL/L (21-32); CHLORIDE 98 MMOL/L (98-107); CREATININE 3.6 MG/DL (0.55-1.30); PHOSPHORUS 2.3 MG/DL (2.5-4.9); POTASSIUM 3.8 MMOL/L (3.5-5.1); SODIUM 134 MMOL/L (136-145)
--- NOTE | 2019-10-17 07:06 | NUR ---
NURSE HAND-OFF REPORT: Important Events on Shift: none Patient Status:Stable Diet:Nephro at 45cc/hr Pending Orders:n Pending Results/Labs:n Pending MD notification:n Latest Vital Signs: Temperature 99.1 , Pulse 102 , B/P 129 /66 , Respiratory Rate 17 , O2 SAT 100 , Mechanical Ventilator, O2 Flow Rate 15.0 . Vital Sign Comment: n EKG Rhythm: V-Paced Rhythm change?: N MD Notified?: N - MD Response: Latest Delacruz Fall Score: 70 Fall Risk: High Risk Safety Measures: Call light Within Reach, Bed Alarm Zone 1, Side Rails Side Rails x3, Bed position Low and Locked. Fall Precautions: Yellow Socks Report given to TAMICA العلي.
--- NOTE | 2019-10-17 07:23 | NUR ---
NURSE NOTES: Received report from RONEY RN. Patient in bed resting, no active s/s cardiac, respiratory distress noticed at this time. Patient obtunded, Trach to vent Portex 8 AC 12 TV 550 Fio2 24% PEEP 5. GT feeding Nephro @ 45ml on hold per order. V-paced with HR 90. IV on left hand 22G, right hand 24G, asymptomatic, patent, intact. Rectal tube draining well to gravity at this time. Bed in lowest position, side rails upx3, call light within reach, bed alarm on, Will continue to monitor.
--- NOTE | 2019-10-17 07:25 | Hematology/Onc Progress Note ---
Assessment/Plan Assessment/Plan Assessment/recs # Anemia due to chronic disease/kidney disease as well, gi bleed + occult + noted --> was on iron in the past, now on hold --> has been started on Epogen sq --> as per renal care --> egd done and shows gastritis --> on ppi --> egd showed gastritis, colo recently done --> hgb 9-->8.7-->7.6-->9.2-->8.9-->9.2->9.3-->8.8->9.9-->9.2-->8.1-->8.7-->7.9- ->8.6-->8.9-->8.2->9-->9.3->8.9-->9.5-->10.6->9.2-->10->8.9-->8.3-->8.9-->9.9 --> spep ordered->wnl # Leukocytosis - with multiple infections, VRE UTI, flow is negative --> wbc trend 33-->28-->25->23->22->23->24->17.3-->17-->14->16-->15.6-->14-->14- >13->19->18->17->22->22->19->17-->18->20-->15-->14->16-->14-->17->18-->17->15--> 16 --> on abx, linezolid and zosyn--> zosyn-->gent-->off --> + blood cultures with coag neg staph likely contaminated --> as per id recs --> has ordered a flow cytometry (with pathology) --> does show increased nK cell activity --> JOURDAN 2 and bcr-abl labs ordered (these are send outs)->negative --> plt 585-->613-->649-->669->663-->529-->506-->620-->720 # Elevated ddimer on admission --> duplex lower legs neg for dvt # Respiratory failure --> per pulm, s/p trach --> COVID 19 test negative x 2 # Hyperlipidemia --> statin po # Dysphagia s/p gtube with nepro --> per gi # ESRD with r fem julito --> hd as per renal # Dvt ppx scds Appreciate consultation and matt Rn Subjective HEENT: Denies: no symptoms, eye pain, blurred vision, tearing, double vision, ear pain, ear discharge, nose pain, nose congestion, throat pain, throat swelling, mouth pain, mouth swelling, other Cardiovascular: Denies: no symptoms, chest pain, edema, irregular heart rate, lightheadedness, palpitations, syncope, other Respiratory: Denies: no symptoms, cough, shortness of breath, SOB with excertion, SOB at rest, sputum, wheezing, other Genitourinary: Denies: no symptoms, burning, discharge, frequency, flank pain, hematuria, incontinence, pain, urgency, other Neurologic/Psychiatric: Denies: no symptoms, anxiety, depressed, emotional problems, headache, numbness, paresthesia, pre-existing deficit, seizure, tingling, tremors, weakness, other Endocrine: Denies: no symptoms, excessive sweating, flushing, intolerance to cold, intolerance to heat, increased hunger, increased thirst, increased urine, unexplained weight gain, unexplained weight loss, other Hematologic/Lymphatic: Denies: no symptoms, anemia, easy bleeding, easy bruising, adenopathy, other Allergies: Coded Allergies: No Known Allergies (Unverified , 06/10/19) Subjective 08/15 meds noted, no bleeding, hgb 8.8, wbc 28, path flow pending 08/16 flow pending dw pathologist, results pending, wbc 25, hgb 9 08/17 labs reviewed, meds reviewed, meds noted, no night sweats 08/19 remains obtunded, on vent/trach, no bleeding wbc 21.7 08/20 labs have been reviewed, no bleeding, wbc still elev, path reviewed 08/21 labs are noted, no bleeding, on vent, wbc better 08/22 labs noted, no bleeding, meds reviewed, wbc 24 hgb 7.6 08/23 vent, off abx, c diff negative, h/h stable 08/24 labs reviewed, on abx, wbc 17, hgb 8.9, no hemolysis 08/26 reviewed flow and is negative for leukemia, matt rn 08/27 meds reviewed, no night sweats, matt rn, no major bleeding 08/28 meds reivewed, labs noted 08/29 wbc is stable, approx 15, hgb 8.8, no hemolysis 08/30 labs are noted, is for colo today, hgb 9.9 08/31 right fem julito in place, unchanged, hgb 9.2, gi aware 09/01 labs noted, hgb 8.8, plt >600, no bleeding 09/02 labs noted, no bleeding, with elev wbc still, no new changes 09/03 meds are noted, no bleeding, labs reviewed hgb 8.6 09/04 no major events, hd as per renal, abx, no bleeding hgb low 09/05 labs are noted, no bleeding, meds have been reviewed 09/06 no new labs no hemolysis, cbc is noted, no bleeding 09/07 meds reviewed, no bleeding, matt rn, permacath functioning well 09/09 meds reviewed, wbc still elevated, as per id recs, cbc noted 09/10 is obtunded, with gutbe in place, labs reviewed 09/11 obtunded, as per id, observe now off abx, labs noted, wbc 19 09/12 cbc is pending, remains on epogen, also off abx 09/13 labs reviewed, no bleeding, elev wbc, no night sweats 09/14 meds noted, no bleeding, wbc 19, hgb 9.5, no night sweats 09/21 obtunded, remains on vent, labs noted, no bleeding, hgb 8.9 09/22 obtunded, labs noted, no bleeding, on vent, unchanged 09/23 unchanges, wbc remains elevated 20k, on abx, on vent 09/24 labs have been reviewed, no bleeding, wbc 15, may need abx 09/25 formula gtube changed, labs noted, remains obtunded, hgb 9.3 09/26 labs have been reviewed, no bleeding, matt rn, no night sweats 09/27 meds reviewed, no bleeding, wbc 14, on abx, remains obtunded 09/28 remains obtunded, no bleeding, wbc better, hgb 8.9, no hemolysis, plt 506 09/30 on colisitn, wbc elevated, cefepime added per id, hgb stable 10/01 labs reviewed, no bleeding, matt rn, no major events noted, wbc 14, hgb 10.6 10/02 labs have been noted, hgb 9.2, wbc 17, on abx, matt rn 10/03 continue on tube feeds, no bleeding, on vent, wbc remains elevated 10/04 remains ibtunded, is on a mechanical ventilator with tube feeds noted 10/05 labs are noted, hgb 8.6, wbc remains elevated, have ordered for spep 10/07 obtunded on vent, with gtube feeds, labs reviewed, matt rn 10/08 labs are noted, on vent/trach, hgb 10.2, remains obtunded 10/09 labns noted, wbc 15, hgb 8.9, remains altered, on tfs 10/10 labs noted, holding tube feeds, matt rn, hg stable 8.3 currently 10/11 remains on tfs, supportive care, labs noted, no bleeding 10/12 remains obtunded, hgb 8.9, no hemolysis is seen 10/14 labs reviewed, no bleeding, pending potential hd if rn available 10/15 is on vent, with gtube, labs reviewed, no bleeding, to get hd soon 10/16 remains on vent, matt rn at bedside, wbc 15, abx prn, plt also higher, will monitor Objective Objective Current Medications Medications (Trade) Dose Ordered Sig/Leonel Route PRN Reason Start Time Stop Time Status Last Admin Dose Admin Acetaminophen (Tylenol) 650 mg Q4H PRN GT Mild Pain (Pain Scale 1-3) 09/21/19 12:45 10/21/19 12:44 10/15/19 17:35 Chlorhexidine Gluconate (Felipa-Hex 2%) 1 applic DAILY@1999 TOPIC 09/12/19 20:00 12/11/19 19:59 10/16/19 20:07 Clonidine HCl (Catapres Tab) 0.1 mg Q4H PRN GT For High Blood Pressure 09/09/19 12:30 12/08/19 05:29 09/15/19 04:10 Dextrose (Dextrose 50%) 25 ml Q30M PRN IV Hypoglycemia 08/09/19 07:30 11/07/19 07:29 Dextrose (Dextrose 50%) 50 ml Q30M PRN IV Hypoglycemia 08/09/19 07:30 11/07/19 07:29 Diphenoxylate HCl/ Atropine (Lomotil) 2.5 mg QID PRN ORAL Diarrhea 09/24/19 08:45 10/24/19 08:44 Epoetin Andreas (Epoetin Andreas(ESRD on dialysis)) 10,000 unit SUBQ 10/09/19 21:00 01/07/20 20:59 10/16/19 20:53 Famotidine (Pepcid) 20 mg DAILY GT 08/30/19 09:00 11/28/19 08:59 10/16/19 08:40 Insulin Aspart (NovoLOG) Q6HR SUBQ 09/25/19 18:00 11/07/19 11:29 10/17/19 05:08 Lactobacillus Acidophilus (Culturelle) 1 tab EVERY 12 HOURS GT 10/03/19 21:00 12/13/19 17:59 10/16/19 20:07 Loperamide HCl (Imodium) 2 mg Q6H PRN NG Diarrhea 10/15/19 07:45 11/14/19 07:44 Metoprolol Tartrate (Lopressor) 200 mg Q12HR GT 08/09/19 09:00 11/07/19 08:59 10/15/19 20:29 Minoxidil (Loniten) 5 mg DAILY GT 08/09/19 09:00 11/07/19 08:59 10/14/19 08:31 Zinc Oxide (Zinc Oxide) 1 applic EVERY 12 HOURS TOPIC 10/03/19 09:00 11/08/19 17:59 10/16/19 20:07 Last 24 Hour Vital Signs Date Time Temp Pulse Resp B/P (MAP) Pulse Ox O2 Delivery O2 Flow Rate FiO2 10/17/19 04:00 24 10/17/19 04:00 Mechanical Ventilator 10/17/19 04:00 99.1 102 129/66 (87) 10/17/19 03:51 102 10/17/19 03:00 101 17 24 10/17/19 00:00 98.2 105 102/52 (69) 10/17/19 00:00 24 10/17/19 00:00 Mechanical Ventilator 10/16/19 23:30 79 10/16/19 23:01 86 20 24 10/16/19 20:07 100 115/67 10/16/19 20:00 99.5 100 115/67 (83) 10/16/19 20:00 24 10/16/19 20:00 Mechanical Ventilator 10/16/19 19:29 89 16 24 10/16/19 19:13 102 10/16/19 17:05 92 16 24 10/16/19 17:00 114/54 (74) 10/16/19 16:00 94 10/16/19 16:00 Mechanical Ventilator 10/16/19 16:00 24 10/16/19 16:00 98.4 92 13 102/45 (64) 100 10/16/19 15:05 96 13 24 10/16/19 13:05 111 24 24 10/16/19 12:00 98.4 112 20 140/71 (94) 99 10/16/19 12:00 Mechanical Ventilator 10/16/19 12:00 24 10/16/19 12:00 111 10/16/19 10:35 108 24 24 10/16/19 09:05 107 24 24 10/16/19 08:43 155/68 10/16/19 08:42 95 155/68 10/16/19 08:00 97 10/16/19 08:00 98.4 99 17 162/81 (108) 99 10/16/19 08:00 24 10/16/19 08:00 Mechanical Ventilator 10/16/19 07:05 97 18 24 10/16/19 05:10 97 17 24 10/16/19 04:00 24 10/16/19 04:00 Mechanical Ventilator 10/16/19 04:00 98.2 90 16 157/72 (100) 100 10/16/19 03:39 95 10/16/19 03:10 92 19 24 10/16/19 01:10 82 22 24 10/16/19 00:00 Mechanical Ventilator 10/16/19 00:00 98.2 72 16 155/93 (113) 100 10/15/19 23:38 82 10/15/19 23:10 76 13 24 10/15/19 20:45 85 17 24 10/15/19 20:29 98 120/56 10/15/19 20:00 Mechanical Ventilator 10/15/19 20:00 24 10/15/19 20:00 99.3 98 16 120/56 (77) 100 10/15/19 19:06 87 10/15/19 19:06 89 18 24 10/15/19 18:05 99.0 10/15/19 16:45 86 17 24 10/15/19 16:00 Mechanical Ventilator 10/15/19 16:00 24 10/15/19 16:00 99.0 86 16 113/56 (75) 100 10/15/19 16:00 87 10/15/19 15:00 72 14 24 10/15/19 12:54 92 16 24 10/15/19 12:00 24 10/15/19 12:00 91 10/15/19 12:00 Mechanical Ventilator 10/15/19 12:00 98.0 90 14 142/59 (86) 100 10/15/19 10:50 89 15 24 10/15/19 09:00 86 18 24 10/15/19 08:41 84 138/58 10/15/19 08:41 138/58 10/15/19 08:00 98.1 84 16 138/58 (84) 100 10/15/19 08:00 84 10/15/19 08:00 24 10/15/19 08:00 Mechanical Ventilator Intake and Output 10/16/19 10/17/19 19:00 07:00 Intake Total 450 ml 540 ml Output Total 2010 ml Balance -1560 ml 540 ml Free Water 90 ml Tube Feeding 360 ml 540 ml Stool Total 10 ml Hemodialysis UF 2000 ml # Bowel Movements 1 Labs Test 10/15/19 05:15 10/16/19 03:28 10/17/19 03:16 White Blood Count 15.9 K/UL (4.8-10.8) 15.7 K/UL (4.8-10.8) 15.1 K/UL (4.8-10.8) Red Blood Count 4.11 M/UL (4.70-6.10) 4.49 M/UL (4.70-6.10) 3.78 M/UL (4.70-6.10) Hemoglobin 9.9 G/DL (14.2-18.0) 10.6 G/DL (14.2-18.0) 9.1 G/DL (14.2-18.0) Hematocrit 32.6 % (42.0-52.0) 35.7 % (42.0-52.0) 29.5 % (42.0-52.0) Mean Corpuscular Volume 79 FL (80-99) 80 FL (80-99) 78 FL (80-99) Mean Corpuscular Hemoglobin 24.1 PG (27.0-31.0) 23.6 PG (27.0-31.0) 24.1 PG (27.0-31.0) Mean Corpuscular Hemoglobin Concent 30.4 G/DL (32.0-36.0) 29.7 G/DL (32.0-36.0) 30.9 G/DL (32.0-36.0) Red Cell Distribution Width 16.7 % (11.6-14.8) 16.8 % (11.6-14.8) 16.7 % (11.6-14.8) Platelet Count 693 K/UL (150-450) 619 K/UL (150-450) 720 K/UL (150-450) Mean Platelet Volume 5.7 FL (6.5-10.1) 4.6 FL (6.5-10.1) 5.6 FL (6.5-10.1) Neutrophils (%) (Auto) % (45.0-75.0) 67.8 % (45.0-75.0) 67.4 % (45.0-75.0) Lymphocytes (%) (Auto) % (20.0-45.0) 17.1 % (20.0-45.0) 17.5 % (20.0-45.0) Monocytes (%) (Auto) % (1.0-10.0) 7.9 % (1.0-10.0) 9.2 % (1.0-10.0) Eosinophils (%) (Auto) % (0.0-3.0) 6.2 % (0.0-3.0) 5.0 % (0.0-3.0) Basophils (%) (Auto) % (0.0-2.0) 1.1 % (0.0-2.0) 1.0 % (0.0-2.0) Differential Total Cells Counted 100 Neutrophils % (Manual) 65 % (45-75) Lymphocytes % (Manual) 23 % (20-45) Monocytes % (Manual) 3 % (1-10) Eosinophils % (Manual) 9 % (0-3) Basophils % (Manual) 0 % (0-2) Band Neutrophils 0 % (0-8) Platelet Estimate Increased Platelet Morphology Normal Polychromasia 1+ Hypochromasia 2+ Anisocytosis 1+ Microcytosis 1+ Sodium Level 133 MMOL/L (136-145) 129 MMOL/L (136-145) 134 MMOL/L (136-145) Potassium Level 3.8 MMOL/L (3.5-5.1) 3.9 MMOL/L (3.5-5.1) 3.8 MMOL/L (3.5-5.1) Chloride Level 96 MMOL/L (98-107) 93 MMOL/L (98-107) 98 MMOL/L (98-107) Carbon Dioxide Level 23 MMOL/L (21-32) 21 MMOL/L (21-32) 27 MMOL/L (21-32) Anion Gap 14 mmol/L (5-15) 15 mmol/L (5-15) 9 mmol/L (5-15) Blood Urea Nitrogen 105 mg/dL (7-18) 125 mg/dL (7-18) 64 mg/dL (7-18) Creatinine 4.6 MG/DL (0.55-1.30) 5.5 MG/DL (0.55-1.30) 3.6 MG/DL (0.55-1.30) Estimat Glomerular Filtration Rate 12.4 mL/min (>60) 10.1 mL/min (>60) 16.5 mL/min (>60) Glucose Level 158 MG/DL (74-106) 152 MG/DL (74-106) 146 MG/DL (74-106) Calcium Level 10.3 MG/DL (8.5-10.1) 10.3 MG/DL (8.5-10.1) 9.2 MG/DL (8.5-10.1) Phosphorus Level 2.3 MG/DL (2.5-4.9) Height (Feet): 5 Height (Inches): 10.00 Weight (Pounds): 123 Objective Physical Exam General Appearance: nad, Chronically Ill Head: normocephalic Eyes: right eye PERRL - Will not open left eye ENT: moist mucus membranes Neck: other - submandibular mass R, fairly rigid with resistance to rotation to L, tracheotomy Respiratory: decreased breath sounds, crackles, other - pacemaker, vent+ Cardiovascular: regular rate, rhythm, edema - anasarca Gastrointestinal: non tender, distended, other - G tube Genitourinary: other Musculoskeletal: other - Contractures all extremities Neurologic: sensory intact, motor weakness, responsive Psychiatric: other Skin: Decubitus/Ulcer - Stage III right elbow, stage III left elbow, stage II sacrum, stage III scrotum, warm/dry Fitz Campos MD Oct 17, 2019 07:25
--- NOTE | 2019-10-17 07:30 | NUR ---
NURSE NOTES: Dr. Campos at the bedside, made aware of platelet level trending up, per MD No new order needed at this time.
[2019-10-17 08:00] VITALS: BP 156/75
[2019-10-17] MEDS: Lactobacillus-GG tablet GT SCH ×2 (08:07→20:52)
[2019-10-17] MEDS: Zinc Oxide Oint 2oz TOPIC SCH ×2 (08:11→20:54)
[2019-10-17] MEDS: Metoprolol Tartrate 100mg tab GT SCH ×2 (08:11→20:53)
[2019-10-17] MEDS: Minoxidil 2.5mg tab GT SCH (08:11)
--- NOTE | 2019-10-17 08:11 | General Progress Note ---
Assessment/Plan Assessment/Plan: IMPRESSION: 1. anemia. 2. fevers improved 3. Leukocytosis. 4. hypotension 5. Acute on chronic renal failure. 6. Hyponatremia. 7. Severe protein-calorie malnutrition. 8. Significantly elevated C-reactive protein concerning for infectious etiology. 9. Tracheostomy, G-tube. 10. Ventilator dependence. 11. anasarca 12. Hematuria 13. V pacing 14. hyponatremia 15. transaminitis, HIDA negative PLAN chronic care; unable to place care noted on vent/ no wean monitor labs and optimize ID follow up dialysis ongoing prognosis poor for recovery impression, plan, and exam edited and reviewed in detail care discussed with RN Subjective ROS Limited/Unobtainable: Yes Allergies: Coded Allergies: No Known Allergies (Unverified , 06/10/19) Subjective remains ill on vent/ no change on HD vitals noted Objective Last 24 Hour Vital Signs Date Time Temp Pulse Resp B/P (MAP) Pulse Ox O2 Delivery O2 Flow Rate FiO2 10/17/19 08:00 98.6 97 15 156/75 (102) 100 10/17/19 04:00 24 10/17/19 04:00 Mechanical Ventilator 10/17/19 04:00 99.1 102 129/66 (87) 10/17/19 03:51 102 10/17/19 03:00 101 17 24 10/17/19 00:00 98.2 105 102/52 (69) 10/17/19 00:00 24 10/17/19 00:00 Mechanical Ventilator 10/16/19 23:30 79 10/16/19 23:01 86 20 24 10/16/19 20:07 100 115/67 10/16/19 20:00 99.5 100 115/67 (83) 10/16/19 20:00 24 10/16/19 20:00 Mechanical Ventilator 10/16/19 19:29 89 16 24 10/16/19 19:13 102 10/16/19 17:05 92 16 24 10/16/19 17:00 114/54 (74) 10/16/19 16:00 94 10/16/19 16:00 Mechanical Ventilator 10/16/19 16:00 24 10/16/19 16:00 98.4 92 13 102/45 (64) 100 10/16/19 15:05 96 13 24 10/16/19 13:05 111 24 24 10/16/19 12:00 98.4 112 20 140/71 (94) 99 10/16/19 12:00 Mechanical Ventilator 10/16/19 12:00 24 10/16/19 12:00 111 10/16/19 10:35 108 24 24 10/16/19 09:05 107 24 24 10/16/19 08:43 155/68 10/16/19 08:42 95 155/68 Intake and Output 10/16/19 10/17/19 19:00 07:00 Intake Total 450 ml 540 ml Output Total 2010 ml Balance -1560 ml 540 ml Free Water 90 ml Tube Feeding 360 ml 540 ml Stool Total 10 ml Hemodialysis UF 2000 ml # Bowel Movements 1 Laboratory Tests 10/17/19 03:16: White Blood Count 15.1H, Red Blood Count 3.78L, Hemoglobin 9.1L, Hematocrit 29.5L, Mean Corpuscular Volume 78L, Mean Corpuscular Hemoglobin 24.1L, Mean Corpuscular Hemoglobin Concent 30.9L, Red Cell Distribution Width 16.7H, Platelet Count 720H, Mean Platelet Volume 5.6L, Neutrophils (%) (Auto) 67.4, Lymphocytes (%) (Auto) 17.5L, Monocytes (%) (Auto) 9.2, Eosinophils (%) (Auto) 5.0H, Basophils (%) (Auto) 1.0, Sodium Level 134L, Potassium Level 3.8, Chloride Level 98, Carbon Dioxide Level 27, Anion Gap 9, Blood Urea Nitrogen 64H , Creatinine 3.6H, Estimat Glomerular Filtration Rate 16.5, Glucose Level 146H, Calcium Level 9.2, Phosphorus Level 2.3L Height (Feet): 5 Height (Inches): 10.00 Weight (Pounds): 123 Objective GENERAL: Ill-appearing male, chronically debilitated. HEENT: Tracheostomy in midline. Questionable fullness in the submandibular region. LUNGS: Coarse breath sounds. reduced breath sounds CARDIAC: S1, S2. Regular rate and rhythm. borderline tachy ABDOMEN: Soft. G-tube. EXTREMITIES: With noted edema. NEUROLOGICAL: Poorly responsive, weak diffusely. Kain Ramirez MD Oct 17, 2019 08:11
[2019-10-17 12:00] VITALS: BP 153/83
--- NOTE | 2019-10-17 12:30 | Surgery Progress Note ---
Surgery Progress Note Subjective Procedure Performed Right femoral temporary hemodialysis catheter removal Additional Comments no acute events comfortable stable labs noted exam unchanged on support Objective Last 24 Hour Vital Signs Date Time Temp Pulse Resp B/P (MAP) Pulse Ox O2 Delivery O2 Flow Rate FiO2 10/17/19 08:11 101 115/56 10/17/19 08:11 115/56 10/17/19 08:00 Mechanical Ventilator 10/17/19 08:00 98.6 97 15 156/75 (102) 100 10/17/19 08:00 98 10/17/19 08:00 24 10/17/19 06:56 95 12 24 10/17/19 04:00 24 10/17/19 04:00 Mechanical Ventilator 10/17/19 04:00 99.1 102 129/66 (87) 10/17/19 03:51 102 10/17/19 03:00 101 17 24 10/17/19 00:00 98.2 105 102/52 (69) 10/17/19 00:00 24 10/17/19 00:00 Mechanical Ventilator 10/16/19 23:30 79 10/16/19 23:01 86 20 24 10/16/19 20:07 100 115/67 10/16/19 20:00 99.5 100 115/67 (83) 10/16/19 20:00 24 10/16/19 20:00 Mechanical Ventilator 10/16/19 19:29 89 16 24 10/16/19 19:13 102 10/16/19 17:05 92 16 24 10/16/19 17:00 114/54 (74) 10/16/19 16:00 94 10/16/19 16:00 Mechanical Ventilator 10/16/19 16:00 24 10/16/19 16:00 98.4 92 13 102/45 (64) 100 10/16/19 15:05 96 13 24 10/16/19 13:05 111 24 24 I&O Intake and Output 10/16/19 10/17/19 19:00 07:00 Intake Total 450 ml 540 ml Output Total 2010 ml Balance -1560 ml 540 ml Free Water 90 ml Tube Feeding 360 ml 540 ml Stool Total 10 ml Hemodialysis UF 2000 ml # Bowel Movements 1 Dressing: other Wound: other Cardiovascular: RSR Respiratory: decreased breath sounds Abdomen: soft, non-tender, present bowel sounds Extremities: no tenderness, no cyanosis Laboratory Tests Test 10/17/19 03:16 White Blood Count 15.1 K/UL (4.8-10.8) H Red Blood Count 3.78 M/UL (4.70-6.10) L Hemoglobin 9.1 G/DL (14.2-18.0) L Hematocrit 29.5 % (42.0-52.0) L Mean Corpuscular Volume 78 FL (80-99) L Mean Corpuscular Hemoglobin 24.1 PG (27.0-31.0) L Mean Corpuscular Hemoglobin Concent 30.9 G/DL (32.0-36.0) L Red Cell Distribution Width 16.7 % (11.6-14.8) H Platelet Count 720 K/UL (150-450) H Mean Platelet Volume 5.6 FL (6.5-10.1) L Neutrophils (%) (Auto) 67.4 % (45.0-75.0) Lymphocytes (%) (Auto) 17.5 % (20.0-45.0) L Monocytes (%) (Auto) 9.2 % (1.0-10.0) Eosinophils (%) (Auto) 5.0 % (0.0-3.0) H Basophils (%) (Auto) 1.0 % (0.0-2.0) Sodium Level 134 MMOL/L (136-145) L Potassium Level 3.8 MMOL/L (3.5-5.1) Chloride Level 98 MMOL/L (98-107) Carbon Dioxide Level 27 MMOL/L (21-32) Anion Gap 9 mmol/L (5-15) Blood Urea Nitrogen 64 mg/dL (7-18) H Creatinine 3.6 MG/DL (0.55-1.30) H Estimat Glomerular Filtration Rate 16.5 mL/min (>60) Glucose Level 146 MG/DL (74-106) H Calcium Level 9.2 MG/DL (8.5-10.1) Phosphorus Level 2.3 MG/DL (2.5-4.9) L Plan Problems: (1) Anemia (2) Hyponatremia (3) Leukocytosis Assessment & Plan: Tracheostomy, left chest pacemaker are again demonstrated. There is bilateral interstitial and airspace disease and bilateral pleural fluid again demonstrated. This appears more severe than on the prior study. Bilateral interstitial and airspace infiltrates versus edema. Bilateral pleural effusions Leukocytosis, anemia, tachycardia, abnormal labs. Wound evaluated and likely etiology of patient's sepsis. Leukocytosis etiology work-up antibiotics per infectious disease Appreciate nephrology input transfuse with dialysis We will follow with recommendations thank you allowing participation's care plan HD access temp HD discussed with medical teams line okay HD as per renal persistent leukocytosis flow cyto noted improving trending down right fem line removed wbc fluctuating h/h stable lft's elevated There is a right pleural effusion Gallbladder demonstrates tiny wall adherent nonmobile echogenic foci, some possible mural calcifications, and comet tail artifact in the anterior wall. Patient unable to report sonographic Kent's sign. Common bile duct measures 4 mm in diameter. No intrahepatic biliary ductal dilatation. Liver demonstrates normal echogenicity, no focal abnormality. There is some surface nodularity. Portal vein and hepatic veins are patent. Pancreas is incompletely visualized due to overlying bowel gas, visualized portions are unremarkable. Spleen is unremarkable. Left kidney measures 8.7 cm in length. Right kidney measures 8.9 cm length. Both kidneys demonstrate increased echogenicity. There is no hydronephrosis. No focal abnormality . Abdominal aorta is partially obscured by bowel gas, visualized portions are non-aneurysmal . A gastrostomy is noted Impression: Tiny wall adherent nonmobile gallbladder echogenic foci, may reflect wall adherent calculi, small polyps, and/or pleural calcifications. Anterior wall comet tail artifact suggests foci of adenomyomatosis. Normal caliber common bile duct Possible hepatic surface nodularity, could indicate cirrhotic change Echogenic kidneys, consistent with medical renal disease. No hydronephrosis Right pleural effusion Gastrostomy Note nonvisualization of portions of the pancreas and abdominal aorta HIDA NEGATIVE trend labs (4) Ventilator dependent (5) Right lower lobe pneumonia (6) Hypokalemia (7) Hyperkalemia (8) Anasarca (9) Decubitus skin ulcer Assessment & Plan: pt presented on admission with generalized edemae.Skin assessed under tracheostomy and no areas of concerns noted. GT Insertion is marginally erythematous with small amt slough at stoma. Unstageable Pressure Injury R elbow. Base of wound is 100% yellow slough, Borders are erythematous. Wound oozing small amt haemopurulent exudate.Darker skin tone without elevation in skin temp or erythema periwound. Pt's penis and scrotum are grossly edematous and enlarged and weeping serous exudate from numerous sites both from penis and scrotum. Two small open wounds noted at base of at base of shaft of penis ,and contreras aspect of scrotum. Both wounds oozing large amt sanguineous and serosanguineous exudate. Multiple open wounds with Biofilm at base of each wounds noted to contreras/lateral,inferior and posterior aspects of scrotum. These wounds noted to be oozing moderate amts of serosanguineous exudate. Hypertrophic scar with scattered areas of hyperpigmentation noted to Sacrum. DTPI noted to L Buttocks (L)7cm x (W)9cm. Base of wound is purple and indurated.Darker skin tone without erythema, induration or fluctuance R and L ischial tuberosities. Both heels are boggy with non-blanchable erythema. Tx.Plan: Cleanse wound R elbow with Saline. Apply TheraHoney, Apply Moisture Barrier Paste periwound. Cover with Optifoam drsg.Change Daily and prn. Wash GT site with soap and water.Pat dry. Apply Zinc Oxide Paste to GT site Daily. Leave Open to Air. Apply Zinc Oxide Paste to entire Scrotum, Place ABD pads to R and L lateral, and posterior aspects of scrotum TWICE daily. Apply Cavilon Skin Barrier to malleoli and both Heels. Cover each site with Optifoam drsgs. Change every 7 days and prn. Reposition at least every 2hours or as tolerated. Off-load heels with Pillows. APM/BECCA Mattress overlay. (10) Malnutrition Assessment & Plan: DAILY ESTIMATED NEEDS: Needs based on Renal, critical care, wound/ 61kg 22-30 kcals/kg 4095-1665 total kcals 1.25-2 g protein/kg 76-122 g total protein Fluid per MD, now on HD NUTRITION DIAGNOSIS: * Swallowing difficulty R/T respiratory failure, dysphagia as evidenced by trach/vent dep, PEG dep * Increased kcal/prot needs R/T wound healing as evidenced by admitted w/ multiple pressure injuries including full thickness wounds at junction of Shaft of penis, dorsal scrotum, R elbow, and DTPI @ L buttocks. CURRENT TF:Osmolite 1.2 @ 60ml/hr x 20 hrs + Garo BID ENTERAL NUTRITION RECOMMENDATIONS: Vital AF 1.2 @ 60ml/hr x 20 hrs to provide 1200ml, 1440kcal, 90g prot, 973ml free water * Rec 20 hr run time for GI rest. -> W/ improved GI status, rec Vital AF 1.2, an elemental and carb controlled TF -> monitor lytes and renal fxn closely, monitor need for renal TF -> TF @ goal will provide 1642mg K and 2025mg Phos -> HOB over 30 degrees/ water flush per MD -------- Trial of Osmolite 1.2 continue for now- Goal of 60ml/hr for 20 hrs (4 hrs bowel rest) to provide 1200ml, 1440 kcal, 67g pro, 984ml free H2O, -> Rec to add prosource 1 pack daily (11g pro) to better meet est pro needs. -> Monitor BG, K closely. Pt would require increased insulin coverage as TF at goal would provide 56g more carbs per day. ADDITIONAL RECOMMENDATIONS: * Per SNF: HT=63" HJ=130 lbs (vs EMR wt of 166lbs) -> obtain re-calibrated bedscale wt, rec daily wt monitoring * Wound healing: con't Nephrovite + Garo BID/ Vit C dosing per Nephro * Monitor renal fxn and lytes closely w/ non-renal TF ->K low, phos wnl;updated mag level; rec increased insulin w/ BG labs * Daily wts w/ drop to 118-20 lbs, rec to recalibrate for accurate CBW * Consider DC Miralax if medically appropriate: +rectal tube (11) Uremia (12) CKD (chronic kidney disease) stage 5, GFR less than 15 ml/min (13) Colon distention Assessment & Plan: discussed with GI likely functional as having lots of loose bm rectal tube kub f/u s/p colonoscopy - findings reviewed with GI improved cont diet as tolerated Marked distention of the sigmoid colon. 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 No evidence of bowel wall thickening or pneumatosis 12 mm focus of contrast enhancement in the right pectineus muscle. While nonspecific in appearance, appearance raises concern for a possible pseudoaneurysm. Ill- defined thickening of the pectus medius muscle could indicate some intramuscular hemorrhage. The above findings were phoned to Dr. Urias at the time of interpretation Large bilateral pleural effusions Hazy pulmonary parenchymal opacities as well as dense consolidative opacities most likely represent pulmonary edema, but could represent pneumonia Evidence of anasarca elsewhere, with generalized edema of the subcutaneous fat Bladder wall thickening, raises concern for cystitis. Avalos catheter in place Colonic diverticulosis. No evidence of diverticulitis. Tracheostomy Pacemaker Gastrostomy Gastrostomy again demonstrated in satisfactory position. The stomach is otherwise unremarkable. The distal esophagus and duodenum are unremarkable. Ingested contrast reaches the colon. No small bowel distention or small bowel wall thickening. Interim placement of a rectal tube. There are a few colonic diverticula. No definite evidence of acute diverticulitis. The appendix is prominent in caliber, as previously No free or loculated intraperitoneal gas or fluid is evident. Again demonstrated is marked gaseous distention of the sigmoid colon which measures up to 12.6 cm in diameter, with the proximal aspect located laterally to the distal aspect, and caliber transition in the mesenteric root of both entry points. However, there is stool within the proximal portion which appears to be at least partially contrast opacified, and no definite persisting of the vascular pedicle demonstrated. The liver, gallbladder, bile ducts, pancreas, spleen, adrenals, kidneys are unremarkable. There are accessory splenules demonstrated. No retroperitoneal or mesenteric mass or adenopathy. No pelvic mass or adenopathy. The prostate is enlarged and protrudes into the inferior bladder. The bladder is thick-walled. Previously demonstrated Avalos catheter has been removed. Again demonstrated is a large right pleural effusion and a moderate to large left pleural effusion. Again demonstrated are compressive atelectatic changes of significant portions of both lower lobes. Pacemaker wires are seen within the heart. Previously demonstrated high attenuation focus within the right pectineus muscle is not evident. However, there is a low-attenuation area which measures 2 cm diameter centrally which is not evident previously. There is diffuse edema of the subcutaneous fat. This is less severe than was demonstrated previously. There are degenerative proliferative changes of the lumbar spine. Impression: Abnormal configuration of the sigmoid colon, with marked distention of a sigmoid, inversion of the relationships of the proximal and descending colon, and evidence of immediately apposed transition point raises concern for sigmoid volvulus. However, similarity to the prior exam, presence of what appears to be contrast opacified stool within the dilated segment, and lack of evidence of twisting of the vascular pedicle raises the possibility that this is baseline for this patient or possibly dysfunctional in nature. Correlate with clinical findings Enlarged prostate with protrusion into the bladder floor. Bladder neoplasm not completely excludable as a result Thick-walled bladder, may indicate cystitis or be due to chronic bladder lumen obstruction related to the above Abnormalities right pectineus muscle, with a 2 cm central low attenuation area. Note that previous exam have a high attenuation focus suspicious for a small pseudoaneurysm. 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 Colonic diverticulosis. No evidence of diverticulitis Gastrostomy in good position Rectal tube in good position Large right and moderate to large left pleural effusions. Resultant compressive pulmonary atelectatic changes or graft edema subcutaneous fat, less severe than was demonstrated on prior 08/17/2019 exam. Jonathan Urias Oct 17, 2019 12:30
--- NOTE | 2019-10-17 13:23 | Nephrology Progress Note ---
Assessment/Plan Plan MOF ESRD - HD now MWF Anemia of CKD -TUYET. Subjective Subjective Patient was last dialyzed yesterday. Objective Objective Last 24 Hour Vital Signs Date Time Temp Pulse Resp B/P (MAP) Pulse Ox O2 Delivery O2 Flow Rate FiO2 10/17/19 12:00 24 10/17/19 12:00 Mechanical Ventilator 10/17/19 12:00 70 10/17/19 12:00 97.9 68 13 153/83 (106) 100 10/17/19 08:11 101 115/56 10/17/19 08:11 115/56 10/17/19 08:00 Mechanical Ventilator 10/17/19 08:00 98.6 97 15 156/75 (102) 100 10/17/19 08:00 98 10/17/19 08:00 24 10/17/19 06:56 95 12 24 10/17/19 04:00 24 10/17/19 04:00 Mechanical Ventilator 10/17/19 04:00 99.1 102 129/66 (87) 10/17/19 03:51 102 10/17/19 03:00 101 17 24 10/17/19 00:00 98.2 105 102/52 (69) 10/17/19 00:00 24 10/17/19 00:00 Mechanical Ventilator 10/16/19 23:30 79 10/16/19 23:01 86 20 24 10/16/19 20:07 100 115/67 10/16/19 20:00 99.5 100 115/67 (83) 10/16/19 20:00 24 10/16/19 20:00 Mechanical Ventilator 10/16/19 19:29 89 16 24 10/16/19 19:13 102 10/16/19 17:05 92 16 24 10/16/19 17:00 114/54 (74) 10/16/19 16:00 94 10/16/19 16:00 Mechanical Ventilator 10/16/19 16:00 24 10/16/19 16:00 98.4 92 13 102/45 (64) 100 10/16/19 15:05 96 13 24 Intake and Output 10/16/19 10/17/19 19:00 07:00 Intake Total 450 ml 540 ml Output Total 2010 ml Balance -1560 ml 540 ml Free Water 90 ml Tube Feeding 360 ml 540 ml Stool Total 10 ml Hemodialysis UF 2000 ml # Bowel Movements 1 Laboratory Tests 10/17/19 03:16: White Blood Count 15.1H, Red Blood Count 3.78L, Hemoglobin 9.1L, Hematocrit 29.5L, Mean Corpuscular Volume 78L, Mean Corpuscular Hemoglobin 24.1L, Mean Corpuscular Hemoglobin Concent 30.9L, Red Cell Distribution Width 16.7H, Platelet Count 720H, Mean Platelet Volume 5.6L, Neutrophils (%) (Auto) 67.4, Lymphocytes (%) (Auto) 17.5L, Monocytes (%) (Auto) 9.2, Eosinophils (%) (Auto) 5.0H, Basophils (%) (Auto) 1.0, Sodium Level 134L, Potassium Level 3.8, Chloride Level 98, Carbon Dioxide Level 27, Anion Gap 9, Blood Urea Nitrogen 64H , Creatinine 3.6H, Estimat Glomerular Filtration Rate 16.5, Glucose Level 146H, Calcium Level 9.2, Phosphorus Level 2.3L Height (Feet): 5 Height (Inches): 10.00 Weight (Pounds): 123 Objective CV RR Trach clean Lungs CTA Perma Cath RIJ. Abd SNT. BS + E No CCE Erica Pichardo MD Oct 17, 2019 13:23
--- NOTE | 2019-10-17 13:29 | NUR ---
NURSE NOTES: Called [facility] Nephrology tele: [phone] , spoke with Sia and informed patient schedule for HD tomorrow 10/[address] Pichardo.
--- NOTE | 2019-10-17 14:48 | NUR ---
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 99.3 HR 98 RR 16 B/P 120/56 AC 12 TV 550 FIO2 24% PEEP 5 WBC 15.9 NA 133 IS: LOPRESSOR GT PEPCID GT ZINC GT PLACEMENT PENDING STEP DOWN STATUS 10/16/2019 SI: RESP FAILURE TRACH/VENT DEPENDENT,RENAL FAILURE T. 98.2 HR 72 RR 16 B/P 155/93 WBC 15.7 NA 129 IS: PEPCID LOPRESSOR PLACEMENT PENDING STEP DOWN STATUS 10/17/2019 SI: RESP FAILURE TRACH/VENT DEPENDENT T. 98.2 HR 101 RR 17 B/P 102/52 AC 12 TV 550 FIO2 24% PEEP 5 WBC 15.1 NA 134 IS: PEPCID LOPRESSOR PLACEMENT PENDING STEP DOWN STATUS
--- NOTE | 2019-10-17 14:54 | NUR ---
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 SPOKE WITH JAMILA FROM [facility] WAITING FOR [employer] FROM [facility], WILL CALL ME ONCE RECEIVED. CLINICALS FAXED TO [facility] AND UPDATED CLINICALS FAXED TO [employer]. CLINICALS FAXED TO [employer] WITH TELEPHONE REVIEW GIVEN. DCP ONGOING.
[2019-10-17 16:00] VITALS: BP 140/65
--- NOTE | 2019-10-17 19:33 | NUR ---
NURSE HAND-OFF REPORT: Important Events on Shift: NA, HD order tomorrow [facility] called Patient Status: stable Diet: Nephro @ 45ml/h Pending Orders: HD tomorrow Pending Results/Labs: NA Pending notification:NA Latest Vital Signs: Temperature 97.7 , Pulse 75 , B/P 140 /65 , Respiratory Rate 14 , O2 SAT 100 , Mechanical Ventilator, O2 Flow Rate 15.0 . Vital Sign Comment: Stable EKG Rhythm: V-Paced Rhythm change?: N MD Notified?: N - MD Response: Latest Delacruz Fall Score: 70 Fall Risk: High Risk Safety Measures: Call light Within Reach, Bed Alarm Zone 1, Side Rails Side Rails x3, Bed position Low and Locked. Fall Precautions: Yellow Socks Report given to TAMICA Worley.
--- NOTE | 2019-10-17 19:33 | NUR ---
NURSE NOTES: Received pt's report from TAMICA العلي. Pt is on bed,sleeping. Pt is on vent. SpO2 100%, RR 12, HR 68. No s/s of respiratory distress noted. Pt is on G-tube, Nepro 1.8 running. Pt is on rectal tube, greenish brown stool noted. IV site clean and intact noted. Call-light within reach. Bed is low and locked. Will continue to monitor with plan of care.
[2019-10-17 20:00] VITALS: BP 151/74
[2019-10-17] MEDS: Dyna-Hex 2% Top Sol 2oz TOPIC SCH (20:52)
--- NOTE | 2019-10-17 23:01 | General Progress Note ---
Assessment/Plan Assessment/Plan: Assessment - abdominal distention, due to colonic dysmotility, - colonoscopy negative to hepatic flexure - diarrhea - presumed TF related - abnormal LFT - ? etiology --> HIDA negative and CT negative - Anemia - leukocytosis - stool OB (+) - EGD --> gastritis - Renal failure - Anasarca - resp failure, trach - b/l pleural effusions - dysphagia, GT - encephalopathy, contracted - poor px Recommendations - continue TF - Off of Statin - ? thoracentesis - rectal tube - roll side to side as feasible (hard due to severe contractions) - Elevate HOB - f/u labs - PPI - abx - supportive care Subjective Allergies: Coded Allergies: No Known Allergies (Unverified , 06/10/19) Subjective above noted NAD on TF minimal thick liquid stool in rectal tube Objective Last 24 Hour Vital Signs Date Time Temp Pulse Resp B/P (MAP) Pulse Ox O2 Delivery O2 Flow Rate FiO2 10/17/19 20:53 77 151/74 10/17/19 20:00 24 10/17/19 20:00 Mechanical Ventilator 10/17/19 20:00 98.2 75 12 151/74 (99) 100 10/17/19 19:31 77 10/17/19 19:30 78 16 24 10/17/19 16:00 24 10/17/19 16:00 Mechanical Ventilator 10/17/19 16:00 97.7 75 14 140/65 (90) 100 10/17/19 15:55 73 10/17/19 15:09 53 25 24 10/17/19 12:00 24 10/17/19 12:00 Mechanical Ventilator 10/17/19 12:00 70 10/17/19 12:00 97.9 68 13 153/83 (106) 100 10/17/19 11:08 76 13 24 10/17/19 08:11 101 115/56 10/17/19 08:11 115/56 10/17/19 08:00 Mechanical Ventilator 10/17/19 08:00 98.6 97 15 156/75 (102) 100 10/17/19 08:00 98 10/17/19 08:00 24 10/17/19 06:56 95 12 24 10/17/19 04:00 24 10/17/19 04:00 Mechanical Ventilator 10/17/19 04:00 99.1 102 129/66 (87) 10/17/19 03:51 102 10/17/19 03:00 101 17 24 10/17/19 00:00 98.2 105 102/52 (69) 10/17/19 00:00 24 10/17/19 00:00 Mechanical Ventilator 10/16/19 23:30 79 10/16/19 23:01 86 20 24 Intake and Output 10/16/19 10/17/19 19:00 07:00 Intake Total 450 ml 540 ml Output Total 2010 ml Balance -1560 ml 540 ml Free Water 90 ml Tube Feeding 360 ml 540 ml Stool Total 10 ml Hemodialysis UF 2000 ml # Bowel Movements 1 Laboratory Tests 10/17/19 03:16: White Blood Count 15.1H, Red Blood Count 3.78L, Hemoglobin 9.1L, Hematocrit 29.5L, Mean Corpuscular Volume 78L, Mean Corpuscular Hemoglobin 24.1L, Mean Corpuscular Hemoglobin Concent 30.9L, Red Cell Distribution Width 16.7H, Platelet Count 720H, Mean Platelet Volume 5.6L, Neutrophils (%) (Auto) 67.4, Lymphocytes (%) (Auto) 17.5L, Monocytes (%) (Auto) 9.2, Eosinophils (%) (Auto) 5.0H, Basophils (%) (Auto) 1.0, Sodium Level 134L, Potassium Level 3.8, Chloride Level 98, Carbon Dioxide Level 27, Anion Gap 9, Blood Urea Nitrogen 64H , Creatinine 3.6H, Estimat Glomerular Filtration Rate 16.5, Glucose Level 146H, Calcium Level 9.2, Phosphorus Level 2.3L Height (Feet): 5 Height (Inches): 10.00 Weight (Pounds): 123 Objective Debilitated AA man NCAT (+) trach coarse BS RR abd less distended, anasarca, (+) GT, (+) rectal tube ext contracted Ronny Mustafa MD Oct 17, 2019 23:01
[2019-10-18] VITALS: BP 151/71
--- NOTE | 2019-10-18 01:57 | Cardiology Report ---
APPROVED REPORT EKG Measurement Heart [id number] <Conclusion> sinu with v pacing
[2019-10-18 04:00] VITALS: BP 146/54
[2019-10-18 04:02] LABS: BASOPHILS % (AUTO) 1.3 % (0.0-2.0); EOSINOPHILS % (AUTO) 7.1 % (0.0-3.0); HEMATOCRIT 29.8 % (42.0-52.0); LYMPHOCYTES % (AUTO) 16.2 % (20.0-45.0); MEAN CORPUSCULAR VOLUME 78 FL (80-99); MONOCYTES % (AUTO) 9.7 % (1.0-10.0); NEUTROPHILS % (AUTO) 65.7 % (45.0-75.0); PLATELET COUNT 746 K/UL (150-450); RED BLOOD COUNT 3.81 M/UL (4.70-6.10); RED CELL DISTRIBUTION WIDTH 16.7 % (11.6-14.8); WHITE BLOOD COUNT 16.3 K/UL (4.8-10.8)
[2019-10-18 04:31] LABS: ALANINE AMINOTRANSFERASE 73 U/L (12-78); ALBUMIN 2.2 G/DL (3.4-5.0); ALBUMIN/GLOBULIN RATIO 0.3 (1.0-2.7); ALKALINE PHOSPHATASE 246 U/L (46-116); ANION GAP 10 mmol/L (5-15); ASPARTATE AMINO TRANSFERASE 74 U/L (15-37); BILIRUBIN,TOTAL 0.4 MG/DL (0.2-1.0); BLOOD UREA NITROGEN 100 mg/dL (7-18); CALCIUM 9.3 MG/DL (8.5-10.1); CARBON DIOXIDE 26 MMOL/L (21-32); CHLORIDE 96 MMOL/L (98-107); CREATININE 4.4 MG/DL (0.55-1.30); POTASSIUM 3.8 MMOL/L (3.5-5.1); SODIUM 132 MMOL/L (136-145)
[2019-10-18] MEDS ORDERED: Heparin Sod 1000 units/ml 10ml IV PRN (06:00)
[2019-10-18] MEDS ORDERED: Heparin 1000 units/ml 1ml Vial INJ PRN (06:00)
[2019-10-18] MEDS: NovoLOG Insulin Flexpen SUBQ SCH ×4 (06:06→23:34)
--- NOTE | 2019-10-18 07:09 | Hematology/Onc Progress Note ---
Assessment/Plan Assessment/Plan Assessment/recs # Anemia due to chronic disease/kidney disease as well, gi bleed + occult + noted --> was on iron in the past, now on hold --> has been started on Epogen sq --> as per renal care --> egd done and shows gastritis --> on ppi --> egd showed gastritis, colo recently done --> hgb 9-->8.7-->7.6-->9.2-->8.9-->9.2->9.3-->8.8->9.9-->9.2-->8.1-->8.7-->7.9- ->8.6-->8.9-->8.2->9-->9.3->8.9-->9.5-->10.6->9.2-->10->8.9-->8.3-->8.9-->9.9--> 9.3 --> spep ordered->wnl # Leukocytosis - with multiple infections, VRE UTI, flow is negative --> wbc trend 33-->28-->25->23->22->23->24->17.3-->17-->14->16-->15.6-->14-->14- >13->19->18->17->22->22->19->17-->18->20-->15-->14->16-->14-->17->18-->17->15--> 16 --> on abx, linezolid and zosyn--> zosyn-->gent-->off --> + blood cultures with coag neg staph likely contaminated --> as per id recs --> has ordered a flow cytometry (with pathology) --> does show increased nK cell activity --> JOURDAN 2 and bcr-abl labs ordered (these are send outs)->negative --> plt 585-->613-->649-->669->663-->529-->506-->620-->720 # Elevated ddimer on admission --> duplex lower legs neg for dvt # Respiratory failure --> per pulm, s/p trach --> COVID 19 test negative x 2 # Hyperlipidemia --> statin po # Dysphagia s/p gtube with nepro --> per gi # ESRD with r fem julito --> hd as per renal # Dvt ppx scds Appreciate consultation and matt Rn Subjective Neurologic/Psychiatric: Denies: no symptoms, anxiety, depressed, emotional problems, headache, numbness, paresthesia, pre-existing deficit, seizure, tingling, tremors, weakness, other Endocrine: Denies: no symptoms, excessive sweating, flushing, intolerance to cold, intolerance to heat, increased hunger, increased thirst, increased urine, unexplained weight gain, unexplained weight loss, other Hematologic/Lymphatic: Denies: no symptoms, anemia, easy bleeding, easy bruising, adenopathy, other Allergies: Coded Allergies: No Known Allergies (Unverified , 06/10/19) All Systems: reviewed and negative except above Subjective 08/15 meds noted, no bleeding, hgb 8.8, wbc 28, path flow pending 08/16 flow pending dw pathologist, results pending, wbc 25, hgb 9 08/17 labs reviewed, meds reviewed, meds noted, no night sweats 08/19 remains obtunded, on vent/trach, no bleeding wbc 21.7 08/20 labs have been reviewed, no bleeding, wbc still elev, path reviewed 08/21 labs are noted, no bleeding, on vent, wbc better 08/22 labs noted, no bleeding, meds reviewed, wbc 24 hgb 7.6 08/23 vent, off abx, c diff negative, h/h stable 08/24 labs reviewed, on abx, wbc 17, hgb 8.9, no hemolysis 08/26 reviewed flow and is negative for leukemia, matt rn 08/27 meds reviewed, no night sweats, matt rn, no major bleeding 08/28 meds reivewed, labs noted 08/29 wbc is stable, approx 15, hgb 8.8, no hemolysis 08/30 labs are noted, is for colo today, hgb 9.9 08/31 right fem julito in place, unchanged, hgb 9.2, gi aware 09/01 labs noted, hgb 8.8, plt >600, no bleeding 09/02 labs noted, no bleeding, with elev wbc still, no new changes 09/03 meds are noted, no bleeding, labs reviewed hgb 8.6 09/04 no major events, hd as per renal, abx, no bleeding hgb low 09/05 labs are noted, no bleeding, meds have been reviewed 09/06 no new labs no hemolysis, cbc is noted, no bleeding 09/07 meds reviewed, no bleeding, matt rn, permacath functioning well 09/09 meds reviewed, wbc still elevated, as per id recs, cbc noted 09/10 is obtunded, with gutbe in place, labs reviewed 09/11 obtunded, as per id, observe now off abx, labs noted, wbc 19 09/12 cbc is pending, remains on epogen, also off abx 09/13 labs reviewed, no bleeding, elev wbc, no night sweats 09/14 meds noted, no bleeding, wbc 19, hgb 9.5, no night sweats 09/21 obtunded, remains on vent, labs noted, no bleeding, hgb 8.9 09/22 obtunded, labs noted, no bleeding, on vent, unchanged 09/23 unchanges, wbc remains elevated 20k, on abx, on vent 09/24 labs have been reviewed, no bleeding, wbc 15, may need abx 09/25 formula gtube changed, labs noted, remains obtunded, hgb 9.3 09/26 labs have been reviewed, no bleeding, matt rn, no night sweats 09/27 meds reviewed, no bleeding, wbc 14, on abx, remains obtunded 09/28 remains obtunded, no bleeding, wbc better, hgb 8.9, no hemolysis, plt 506 09/30 on colisitn, wbc elevated, cefepime added per id, hgb stable 10/01 labs reviewed, no bleeding, matt rn, no major events noted, wbc 14, hgb 10.6 10/02 labs have been noted, hgb 9.2, wbc 17, on abx, matt wright 10/03 continue on tube feeds, no bleeding, on vent, wbc remains elevated 10/04 remains ibtunded, is on a mechanical ventilator with tube feeds noted 10/05 labs are noted, hgb 8.6, wbc remains elevated, have ordered for spep 10/07 obtunded on vent, with gtube feeds, labs reviewed, matt rn 10/08 labs are noted, on vent/trach, hgb 10.2, remains obtunded 10/09 labns noted, wbc 15, hgb 8.9, remains altered, on tfs 10/10 labs noted, holding tube feeds, matt rn, hg stable 8. currently 10/11 remains on tfs, supportive care, labs noted, no bleeding 10/12 remains obtunded, hgb 8.9, no hemolysis is seen 10/14 labs reviewed, no bleeding, pending potential hd if rn available 10/15 is on vent, with gtube, labs reviewed, no bleeding, to get hd soon 10/16 remains on vent, matt rn at bedside, wbc 15, abx prn, plt also higher, will monitor 10/17 on vent, continue on tube feeds via gtube, labs improved Objective Objective Current Medications Medications (Trade) Dose Ordered Sig/Leonel Route PRN Reason Start Time Stop Time Status Last Admin Dose Admin Acetaminophen (Tylenol) 650 mg Q4H PRN GT Mild Pain (Pain Scale 1-3) 09/21/19 12:45 10/21/19 12:44 10/15/19 17:35 Chlorhexidine Gluconate (Felipa-Hex 2%) 1 applic DAILY@1999 TOPIC 09/12/19 20:00 12/11/19 19:59 10/17/19 20:52 Clonidine HCl (Catapres Tab) 0.1 mg Q4H PRN GT For High Blood Pressure 09/09/19 12:30 12/08/19 05:29 09/15/19 04:10 Dextrose (Dextrose 50%) 25 ml Q30M PRN IV Hypoglycemia 08/09/19 07:30 11/07/19 07:29 Dextrose (Dextrose 50%) 50 ml Q30M PRN IV Hypoglycemia 08/09/19 07:30 11/07/19 07:29 Diphenoxylate HCl/ Atropine (Lomotil) 2.5 mg QID PRN ORAL Diarrhea 09/24/19 08:45 10/24/19 08:44 Epoetin Andreas (Epoetin Andreas(ESRD on dialysis)) 10,000 unit MON-WED-WED SUBQ 10/09/19 21:00 01/07/20 20:59 10/16/19 20:53 Famotidine (Pepcid) 20 mg DAILY GT 08/30/19 09:00 11/28/19 08:59 10/17/19 08:07 Heparin Sodium (Porcine) (Heparin Sod 1000 units/ml 10ml) 2,000 unit ONCE PRN IV hd 10/18/19 06:00 10/18/19 23:59 Heparin Sodium (Porcine) (Heparin) 1,000 unit POSTHD PRN INJ POST HD 10/18/19 06:00 10/18/19 23:59 Insulin Aspart (NovoLOG) Q6HR SUBQ 09/25/19 18:00 11/07/19 11:29 10/18/19 06:06 Lactobacillus Acidophilus (Culturelle) 1 tab EVERY 12 HOURS GT 10/03/19 21:00 12/13/19 17:59 10/17/19 20:52 Loperamide HCl (Imodium) 2 mg Q6H PRN NG Diarrhea 10/15/19 07:45 11/14/19 07:44 Metoprolol Tartrate (Lopressor) 200 mg Q12HR GT 08/09/19 09:00 11/07/19 08:59 10/17/19 20:53 Minoxidil (Loniten) 5 mg DAILY GT 08/09/19 09:00 11/07/19 08:59 10/17/19 08:11 Sodium Chloride 1,000 ml @ 500 mls/hr Q2H PRN IVLG sbp<90 during hd 10/18/19 06:00 10/18/19 23:59 Zinc Oxide (Zinc Oxide) 1 applic EVERY 12 HOURS TOPIC 10/03/19 09:00 11/08/19 17:59 10/17/19 20:54 Last 24 Hour Vital Signs Date Time Temp Pulse Resp B/P (MAP) Pulse Ox O2 Delivery O2 Flow Rate FiO2 10/18/19 04:00 98.2 82 15 146/54 (84) 99 10/18/19 04:00 Mechanical Ventilator 10/18/19 04:00 24 10/18/19 03:29 73 10/18/19 02:45 72 16 24 10/18/19 00:00 Mechanical Ventilator 10/18/19 00:00 24 10/18/19 00:00 69 10/18/19 00:00 98.4 71 14 151/71 (97) 99 10/17/19 22:54 67 12 24 10/17/19 20:53 77 151/74 10/17/19 20:00 24 10/17/19 20:00 Mechanical Ventilator 10/17/19 20:00 98.2 75 12 151/74 (99) 100 10/17/19 19:31 77 10/17/19 19:30 78 16 24 10/17/19 16:00 24 10/17/19 16:00 Mechanical Ventilator 10/17/19 16:00 97.7 75 14 140/65 (90) 100 10/17/19 15:55 73 10/17/19 15:09 53 25 24 10/17/19 12:00 24 10/17/19 12:00 Mechanical Ventilator 10/17/19 12:00 70 10/17/19 12:00 97.9 68 13 153/83 (106) 100 10/17/19 11:08 76 13 24 10/17/19 08:11 101 115/56 10/17/19 08:11 115/56 10/17/19 08:00 Mechanical Ventilator 10/17/19 08:00 98.6 97 15 156/75 (102) 100 10/17/19 08:00 98 10/17/19 08:00 24 10/17/19 06:56 95 12 24 10/17/19 04:00 24 10/17/19 04:00 Mechanical Ventilator 10/17/19 04:00 99.1 102 129/66 (87) 10/17/19 03:51 102 10/17/19 03:00 101 17 24 10/17/19 00:00 98.2 105 102/52 (69) 10/17/19 00:00 24 10/17/19 00:00 Mechanical Ventilator 10/16/19 23:30 79 10/16/19 23:01 86 20 24 10/16/19 20:07 100 115/67 10/16/19 20:00 99.5 100 115/67 (83) 10/16/19 20:00 24 10/16/19 20:00 Mechanical Ventilator 10/16/19 19:29 89 16 24 10/16/19 19:13 102 10/16/19 17:05 92 16 24 10/16/19 17:00 114/54 (74) 10/16/19 16:00 94 10/16/19 16:00 Mechanical Ventilator 10/16/19 16:00 24 10/16/19 16:00 98.4 92 13 102/45 (64) 100 10/16/19 15:05 96 13 24 10/16/19 13:05 111 24 24 10/16/19 12:00 98.4 112 20 140/71 (94) 99 10/16/19 12:00 Mechanical Ventilator 10/16/19 12:00 24 10/16/19 12:00 111 10/16/19 10:35 108 24 24 10/16/19 09:05 107 24 24 10/16/19 08:43 155/68 10/16/19 08:42 95 155/68 10/16/19 08:00 97 10/16/19 08:00 98.4 99 17 162/81 (108) 99 10/16/19 08:00 24 10/16/19 08:00 Mechanical Ventilator Intake and Output 10/17/19 10/18/19 19:00 07:00 Intake Total 605 ml 450 ml Output Total 40 ml 300 ml Balance 565 ml 150 ml Free Water 290 ml Tube Feeding 315 ml 450 ml Stool Total 40 ml 300 ml # Bowel Movements 1 Labs Test 10/16/19 03:28 10/17/19 03:16 10/18/19 03:15 White Blood Count 15.7 K/UL (4.8-10.8) 15.1 K/UL (4.8-10.8) 16.3 K/UL (4.8-10.8) Red Blood Count 4.49 M/UL (4.70-6.10) 3.78 M/UL (4.70-6.10) 3.81 M/UL (4.70-6.10) Hemoglobin 10.6 G/DL (14.2-18.0) 9.1 G/DL (14.2-18.0) 9.0 G/DL (14.2-18.0) Hematocrit 35.7 % (42.0-52.0) 29.5 % (42.0-52.0) 29.8 % (42.0-52.0) Mean Corpuscular Volume 80 FL (80-99) 78 FL (80-99) 78 FL (80-99) Mean Corpuscular Hemoglobin 23.6 PG (27.0-31.0) 24.1 PG (27.0-31.0) 23.7 PG (27.0-31.0) Mean Corpuscular Hemoglobin Concent 29.7 G/DL (32.0-36.0) 30.9 G/DL (32.0-36.0) 30.3 G/DL (32.0-36.0) Red Cell Distribution Width 16.8 % (11.6-14.8) 16.7 % (11.6-14.8) 16.7 % (11.6-14.8) Platelet Count 619 K/UL (150-450) 720 K/UL (150-450) 746 K/UL (150-450) Mean Platelet Volume 4.6 FL (6.5-10.1) 5.6 FL (6.5-10.1) 5.6 FL (6.5-10.1) Neutrophils (%) (Auto) 67.8 % (45.0-75.0) 67.4 % (45.0-75.0) 65.7 % (45.0-75.0) Lymphocytes (%) (Auto) 17.1 % (20.0-45.0) 17.5 % (20.0-45.0) 16.2 % (20.0-45.0) Monocytes (%) (Auto) 7.9 % (1.0-10.0) 9.2 % (1.0-10.0) 9.7 % (1.0-10.0) Eosinophils (%) (Auto) 6.2 % (0.0-3.0) 5.0 % (0.0-3.0) 7.1 % (0.0-3.0) Basophils (%) (Auto) 1.1 % (0.0-2.0) 1.0 % (0.0-2.0) 1.3 % (0.0-2.0) Sodium Level 129 MMOL/L (136-145) 134 MMOL/L (136-145) 132 MMOL/L (136-145) Potassium Level 3.9 MMOL/L (3.5-5.1) 3.8 MMOL/L (3.5-5.1) 3.8 MMOL/L (3.5-5.1) Chloride Level 93 MMOL/L (98-107) 98 MMOL/L (98-107) 96 MMOL/L (98-107) Carbon Dioxide Level 21 MMOL/L (21-32) 27 MMOL/L (21-32) 26 MMOL/L (21-32) Anion Gap 15 mmol/L (5-15) 9 mmol/L (5-15) 10 mmol/L (5-15) Blood Urea Nitrogen 125 mg/dL (7-18) 64 mg/dL (7-18) 100 mg/dL (7-18) Creatinine 5.5 MG/DL (0.55-1.30) 3.6 MG/DL (0.55-1.30) 4.4 MG/DL (0.55-1.30) Estimat Glomerular Filtration Rate 10.1 mL/min (>60) 16.5 mL/min (>60) 13.1 mL/min (>60) Glucose Level 152 MG/DL (74-106) 146 MG/DL (74-106) 172 MG/DL (74-106) Calcium Level 10.3 MG/DL (8.5-10.1) 9.2 MG/DL (8.5-10.1) 9.3 MG/DL (8.5-10.1) Phosphorus Level 2.3 MG/DL (2.5-4.9) Total Bilirubin 0.4 MG/DL (0.2-1.0) Aspartate Amino Transf (AST/SGOT) 74 U/L (15-37) Alanine Aminotransferase (ALT/SGPT) 73 U/L (12-78) Alkaline Phosphatase 246 U/L (46-116) Total Protein 9.1 G/DL (6.4-8.2) Albumin 2.2 G/DL (3.4-5.0) Globulin 6.9 g/dL Albumin/Globulin Ratio 0.3 (1.0-2.7) Height (Feet): 5 Height (Inches): 10.00 Weight (Pounds): 123 Objective Physical Exam General Appearance: nad, Chronically Ill Head: normocephalic Eyes: right eye PERRL - Will not open left eye ENT: moist mucus membranes Neck: other - submandibular mass R, fairly rigid with resistance to rotation to L, tracheotomy Respiratory: decreased breath sounds, crackles, other - pacemaker, vent+ Cardiovascular: regular rate, rhythm, edema - anasarca Gastrointestinal: non tender, distended, other - G tube Genitourinary: other Musculoskeletal: other - Contractures all extremities Neurologic: sensory intact, motor weakness, responsive Psychiatric: other Skin: Decubitus/Ulcer - Stage III right elbow, stage III left elbow, stage II sacrum, stage III scrotum, warm/dry Fitz Campos MD Oct 18, 2019 07:09
--- NOTE | 2019-10-18 07:19 | NUR ---
NURSE NOTES: Received report from TAMICA Worley. Patient is resting in bed, in stable condition. No s/sx of SOB, breathing is even and unlabored, on vent settings as ordered. Patient is nonverbal, no presence of pain or discomfort noted at this time. Bed is in lowest position, brakes engaged. Call light is kept within easy reach. Will continue to monitor patient.
--- NOTE | 2019-10-18 07:25 | NUR ---
NURSE HAND-OFF REPORT: Important Events on Shift:N/A Patient Status: Stable Diet: Nepro @ 45mL/hr Pending Orders: n/a Pending Results/Labs:n/a Pending MD notification:n/a Latest Vital Signs: Temperature 98.2 , Pulse 85 , B/P 146 /54 , Respiratory Rate 16 , O2 SAT 99 , Mechanical Ventilator, O2 Flow Rate 15.0 . Vital Sign Comment: stable with high bp as his normal EKG Rhythm: V-Paced Rhythm change?: N MD Notified?: N - MD Response: Latest Delacruz Fall Score: 70 Fall Risk: High Risk Safety Measures: Call light Within Reach, Bed Alarm Zone 1, Side Rails Side Rails x3, Bed position Low and Locked. Fall Precautions: Yellow Socks Report given to TAMICA Espino.
[2019-10-18 07:54] VITALS: BP 138/83
[2019-10-18] MEDS: Zinc Oxide Oint 2oz TOPIC SCH ×2 (08:03→21:14)
[2019-10-18] MEDS: Minoxidil 2.5mg tab GT SCH (08:03)
[2019-10-18] MEDS: Lactobacillus-GG tablet GT SCH ×2 (08:04→20:11)
[2019-10-18] MEDS: Metoprolol Tartrate 100mg tab GT SCH ×2 (08:04→20:12)
[2019-10-18 12:00] VITALS: BP 151/71
--- NOTE | 2019-10-18 12:49 | NUR ---
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 97.9 HR 89 RR 15 B/P 151/71 AC 12 TV 550 FIO2 24% PEEP 5 WBC 16.3 NA 132 AST 74 IS: PEPCID GT LOPRESSOR GT PLACEMENT PENDING STEP DOWN STATUS
--- NOTE | 2019-10-18 12:51 | NUR ---
[employer] NOTES CLINICALS REVIEWED AND FAXED TO [employer]. PLACED A CALL TO JAMILA MACIAS NOT AVAILABLE TODAY. MESSAGE LEFT FOR DON OR [employer] TO RETURN CALL.
--- NOTE | 2019-10-18 15:04 | Surgery Progress Note ---
Surgery Progress Note Subjective Procedure Performed Right femoral temporary hemodialysis catheter removal Additional Comments stable Objective Last 24 Hour Vital Signs Date Time Temp Pulse Resp B/P (MAP) Pulse Ox O2 Delivery O2 Flow Rate FiO2 10/18/19 15:00 82 17 24 10/18/19 12:00 97.9 89 15 151/71 (97) 95 10/18/19 12:00 Mechanical Ventilator 10/18/19 12:00 24 10/18/19 11:56 78 20 24 10/18/19 11:32 88 10/18/19 08:00 83 10/18/19 08:00 Mechanical Ventilator 10/18/19 08:00 24 10/18/19 07:54 99.1 86 15 138/83 (101) 98 10/18/19 07:23 85 16 24 10/18/19 04:00 98.2 82 15 146/54 (84) 99 10/18/19 04:00 Mechanical Ventilator 10/18/19 04:00 24 10/18/19 03:29 73 10/18/19 02:45 72 16 24 10/18/19 00:00 Mechanical Ventilator 10/18/19 00:00 24 10/18/19 00:00 69 10/18/19 00:00 98.4 71 14 151/71 (97) 99 10/17/19 22:54 67 12 24 10/17/19 20:53 77 151/74 10/17/19 20:00 24 10/17/19 20:00 Mechanical Ventilator 10/17/19 20:00 98.2 75 12 151/74 (99) 100 10/17/19 19:31 77 10/17/19 19:30 78 16 24 10/17/19 16:00 24 10/17/19 16:00 Mechanical Ventilator 10/17/19 16:00 97.7 75 14 140/65 (90) 100 10/17/19 15:55 73 10/17/19 15:09 53 25 24 I&O Intake and Output 10/17/19 10/18/19 19:00 07:00 Intake Total 605 ml 450 ml Output Total 40 ml 300 ml Balance 565 ml 150 ml Free Water 290 ml Tube Feeding 315 ml 450 ml Stool Total 40 ml 300 ml # Bowel Movements 1 Dressing: other Wound: other Drains: other Cardiovascular: RSR Respiratory: decreased breath sounds Abdomen: soft, non-tender, present bowel sounds Extremities: no tenderness, no cyanosis Laboratory Tests Test 10/17/19 16:42 10/18/19 03:15 10/18/19 11:36 POC Whole Blood Glucose 158 MG/DL (74-106) H 124 MG/DL (74-106) H White Blood Count 16.3 K/UL (4.8-10.8) H Red Blood Count 3.81 M/UL (4.70-6.10) L Hemoglobin 9.0 G/DL (14.2-18.0) L Hematocrit 29.8 % (42.0-52.0) L Mean Corpuscular Volume 78 FL (80-99) L Mean Corpuscular Hemoglobin 23.7 PG (27.0-31.0) L Mean Corpuscular Hemoglobin Concent 30.3 G/DL (32.0-36.0) L Red Cell Distribution Width 16.7 % (11.6-14.8) H Platelet Count 746 K/UL (150-450) H Mean Platelet Volume 5.6 FL (6.5-10.1) L Neutrophils (%) (Auto) 65.7 % (45.0-75.0) Lymphocytes (%) (Auto) 16.2 % (20.0-45.0) L Monocytes (%) (Auto) 9.7 % (1.0-10.0) Eosinophils (%) (Auto) 7.1 % (0.0-3.0) H Basophils (%) (Auto) 1.3 % (0.0-2.0) Sodium Level 132 MMOL/L (136-145) L Potassium Level 3.8 MMOL/L (3.5-5.1) Chloride Level 96 MMOL/L (98-107) L Carbon Dioxide Level 26 MMOL/L (21-32) Anion Gap 10 mmol/L (5-15) Blood Urea Nitrogen 100 mg/dL (7-18) H Creatinine 4.4 MG/DL (0.55-1.30) H Estimat Glomerular Filtration Rate 13.1 mL/min (>60) Glucose Level 172 MG/DL (74-106) H Calcium Level 9.3 MG/DL (8.5-10.1) Total Bilirubin 0.4 MG/DL (0.2-1.0) Aspartate Amino Transf (AST/SGOT) 74 U/L (15-37) H Alanine Aminotransferase (ALT/SGPT) 73 U/L (12-78) Alkaline Phosphatase 246 U/L (46-116) H Total Protein 9.1 G/DL (6.4-8.2) H Albumin 2.2 G/DL (3.4-5.0) L Globulin 6.9 g/dL Albumin/Globulin Ratio 0.3 (1.0-2.7) L Plan Problems: (1) Anemia (2) Hyponatremia (3) Leukocytosis Assessment & Plan: Tracheostomy, left chest pacemaker are again demonstrated. There is bilateral interstitial and airspace disease and bilateral pleural fluid again demonstrated. This appears more severe than on the prior study. Bilateral interstitial and airspace infiltrates versus edema. Bilateral pleural effusions Leukocytosis, anemia, tachycardia, abnormal labs. Wound evaluated and likely etiology of patient's sepsis. Leukocytosis etiology work-up antibiotics per infectious disease Appreciate nephrology input transfuse with dialysis We will follow with recommendations thank you allowing participation's care plan HD access temp HD discussed with medical teams line okay HD as per renal persistent leukocytosis flow cyto noted improving trending down right fem line removed wbc fluctuating h/h stable lft's elevated There is a right pleural effusion Gallbladder demonstrates tiny wall adherent nonmobile echogenic foci, some possible mural calcifications, and comet tail artifact in the anterior wall. Patient unable to report sonographic Kent's sign. Common bile duct measures 4 mm in diameter. No intrahepatic biliary ductal dilatation. Liver demonstrates normal echogenicity, no focal abnormality. There is some surface nodularity. Portal vein and hepatic veins are patent. Pancreas is incompletely visualized due to overlying bowel gas, visualized portions are unremarkable. Spleen is unremarkable. Left kidney measures 8.7 cm in length. Right kidney measures 8.9 cm length. Both kidneys demonstrate increased echogenicity. There is no hydronephrosis. No focal abnormality . Abdominal aorta is partially obscured by bowel gas, visualized portions are non-aneurysmal . A gastrostomy is noted Impression: Tiny wall adherent nonmobile gallbladder echogenic foci, may reflect wall adherent calculi, small polyps, and/or pleural calcifications. Anterior wall comet tail artifact suggests foci of adenomyomatosis. Normal caliber common bile duct Possible hepatic surface nodularity, could indicate cirrhotic change Echogenic kidneys, consistent with medical renal disease. No hydronephrosis Right pleural effusion Gastrostomy Note nonvisualization of portions of the pancreas and abdominal aorta HIDA NEGATIVE trend labs (4) Ventilator dependent (5) Right lower lobe pneumonia (6) Hypokalemia (7) Hyperkalemia (8) Anasarca (9) Decubitus skin ulcer Assessment & Plan: pt presented on admission with generalized edemae.Skin assessed under tracheostomy and no areas of concerns noted. GT Insertion is marginally erythematous with small amt slough at stoma. Unstageable Pressure Injury R elbow. Base of wound is 100% yellow slough, Borders are erythematous. Wound oozing small amt haemopurulent exudate.Darker skin tone without elevation in skin temp or erythema periwound. Pt's penis and scrotum are grossly edematous and enlarged and weeping serous exudate from numerous sites both from penis and scrotum. Two small open wounds noted at base of at base of shaft of penis ,and contreras aspect of scrotum. Both wounds oozing large amt sanguineous and serosanguineous exudate. Multiple open wounds with Biofilm at base of each wounds noted to contreras/lateral,inferior and posterior aspects of scrotum. These wounds noted to be oozing moderate amts of serosanguineous exudate. Hypertrophic scar with scattered areas of hyperpigmentation noted to Sacrum. DTPI noted to L Buttocks (L)7cm x (W)9cm. Base of wound is purple and indurated.Darker skin tone without erythema, induration or fluctuance R and L ischial tuberosities. Both heels are boggy with non-blanchable erythema. Tx.Plan: Cleanse wound R elbow with Saline. Apply TheraHoney, Apply Moisture Barrier Paste periwound. Cover with Optifoam drsg.Change Daily and prn. Wash GT site with soap and water.Pat dry. Apply Zinc Oxide Paste to GT site Daily. Leave Open to Air. Apply Zinc Oxide Paste to entire Scrotum, Place ABD pads to R and L lateral, and posterior aspects of scrotum TWICE daily. Apply Cavilon Skin Barrier to malleoli and both Heels. Cover each site with Optifoam drsgs. Change every 7 days and prn. Reposition at least every 2hours or as tolerated. Off-load heels with Pillows. APM/BECCA Mattress overlay. (10) Malnutrition Assessment & Plan: DAILY ESTIMATED NEEDS: Needs based on Renal, critical care, wound/ 61kg 22-30 kcals/kg 2989-9594 total kcals 1.25-2 g protein/kg 76-122 g total protein Fluid per MD, now on HD NUTRITION DIAGNOSIS: * Swallowing difficulty R/T respiratory failure, dysphagia as evidenced by trach/vent dep, PEG dep * Increased kcal/prot needs R/T wound healing as evidenced by admitted w/ multiple pressure injuries including full thickness wounds at junction of Shaft of penis, dorsal scrotum, R elbow, and DTPI @ L buttocks. CURRENT TF:Osmolite 1.2 @ 60ml/hr x 20 hrs + Garo BID ENTERAL NUTRITION RECOMMENDATIONS: Vital AF 1.2 @ 60ml/hr x 20 hrs to provide 1200ml, 1440kcal, 90g prot, 973ml free water * Rec 20 hr run time for GI rest. -> W/ improved GI status, rec Vital AF 1.2, an elemental and carb controlled TF -> monitor lytes and renal fxn closely, monitor need for renal TF -> TF @ goal will provide 1642mg K and 2025mg Phos -> HOB over 30 degrees/ water flush per MD -------- Trial of Osmolite 1.2 continue for now- Goal of 60ml/hr for 20 hrs (4 hrs bowel rest) to provide 1200ml, 1440 kcal, 67g pro, 984ml free H2O, -> Rec to add prosource 1 pack daily (11g pro) to better meet est pro needs. -> Monitor BG, K closely. Pt would require increased insulin coverage as TF at goal would provide 56g more carbs per day. ADDITIONAL RECOMMENDATIONS: * Per SNF: HT=63" YZ=397 lbs (vs EMR wt of 166lbs) -> obtain re-calibrated bedscale wt, rec daily wt monitoring * Wound healing: con't Nephrovite + Garo BID/ Vit C dosing per Nephro * Monitor renal fxn and lytes closely w/ non-renal TF ->K low, phos wnl;updated mag level; rec increased insulin w/ BG labs * Daily wts w/ drop to 118-20 lbs, rec to recalibrate for accurate CBW * Consider DC Miralax if medically appropriate: +rectal tube (11) Uremia (12) CKD (chronic kidney disease) stage 5, GFR less than 15 ml/min (13) Colon distention Assessment & Plan: discussed with GI likely functional as having lots of loose bm rectal tube kub f/u s/p colonoscopy - findings reviewed with GI improved cont diet as tolerated Marked distention of the sigmoid colon. 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 No evidence of bowel wall thickening or pneumatosis 12 mm focus of contrast enhancement in the right pectineus muscle. While nonspecific in appearance, appearance raises concern for a possible pseudoaneurysm. Ill- defined thickening of the pectus medius muscle could indicate some intramuscular hemorrhage. The above findings were phoned to Dr. Urias at the time of interpretation Large bilateral pleural effusions Hazy pulmonary parenchymal opacities as well as dense consolidative opacities most likely represent pulmonary edema, but could represent pneumonia Evidence of anasarca elsewhere, with generalized edema of the subcutaneous fat Bladder wall thickening, raises concern for cystitis. Avalos catheter in place Colonic diverticulosis. No evidence of diverticulitis. Tracheostomy Pacemaker Gastrostomy Gastrostomy again demonstrated in satisfactory position. The stomach is otherwise unremarkable. The distal esophagus and duodenum are unremarkable. Ingested contrast reaches the colon. No small bowel distention or small bowel wall thickening. Interim placement of a rectal tube. There are a few colonic diverticula. No definite evidence of acute diverticulitis. The appendix is prominent in caliber, as previously No free or loculated intraperitoneal gas or fluid is evident. Again demonstrated is marked gaseous distention of the sigmoid colon which measures up to 12.6 cm in diameter, with the proximal aspect located laterally to the distal aspect, and caliber transition in the mesenteric root of both entry points. However, there is stool within the proximal portion which appears to be at least partially contrast opacified, and no definite persisting of the vascular pedicle demonstrated. The liver, gallbladder, bile ducts, pancreas, spleen, adrenals, kidneys are unremarkable. There are accessory splenules demonstrated. No retroperitoneal or mesenteric mass or adenopathy. No pelvic mass or adenopathy. The prostate is enlarged and protrudes into the inferior bladder. The bladder is thick-walled. Previously demonstrated Avalos catheter has been removed. Again demonstrated is a large right pleural effusion and a moderate to large left pleural effusion. Again demonstrated are compressive atelectatic changes of significant portions of both lower lobes. Pacemaker wires are seen within the heart. Previously demonstrated high attenuation focus within the right pectineus muscle is not evident. However, there is a low-attenuation area which measures 2 cm diameter centrally which is not evident previously. There is diffuse edema of the subcutaneous fat. This is less severe than was demonstrated previously. There are degenerative proliferative changes of the lumbar spine. Impression: Abnormal configuration of the sigmoid colon, with marked distention of a sigmoid, inversion of the relationships of the proximal and descending colon, and evidence of immediately apposed transition point raises concern for sigmoid volvulus. However, similarity to the prior exam, presence of what appears to be contrast opacified stool within the dilated segment, and lack of evidence of twisting of the vascular pedicle raises the possibility that this is baseline for this patient or possibly dysfunctional in nature. Correlate with clinical findings Enlarged prostate with protrusion into the bladder floor. Bladder neoplasm not completely excludable as a result Thick-walled bladder, may indicate cystitis or be due to chronic bladder lumen obstruction related to the above Abnormalities right pectineus muscle, with a 2 cm central low attenuation area. Note that previous exam have a high attenuation focus suspicious for a small pseudoaneurysm. 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 Colonic diverticulosis. No evidence of diverticulitis Gastrostomy in good position Rectal tube in good position Large right and moderate to large left pleural effusions. Resultant compressive pulmonary atelectatic changes or graft edema subcutaneous fat, less severe than was demonstrated on prior 08/17/2019 exam. Jonathan Urias Oct 18, 2019 15:04
--- NOTE | 2019-10-18 15:28 | Nephrology Progress Note ---
Assessment/Plan Plan MOF ESRD - HD now MWF Anemia of CKD -TUYET. Subjective Subjective Obtunded Objective Objective Last 24 Hour Vital Signs Date Time Temp Pulse Resp B/P (MAP) Pulse Ox O2 Delivery O2 Flow Rate FiO2 10/18/19 15:00 82 17 24 10/18/19 12:00 97.9 89 15 151/71 (97) 95 10/18/19 12:00 Mechanical Ventilator 10/18/19 12:00 24 10/18/19 11:56 78 20 24 10/18/19 11:32 88 10/18/19 08:00 83 10/18/19 08:00 Mechanical Ventilator 10/18/19 08:00 24 10/18/19 07:54 99.1 86 15 138/83 (101) 98 10/18/19 07:23 85 16 24 10/18/19 04:00 98.2 82 15 146/54 (84) 99 10/18/19 04:00 Mechanical Ventilator 10/18/19 04:00 24 10/18/19 03:29 73 10/18/19 02:45 72 16 24 10/18/19 00:00 Mechanical Ventilator 10/18/19 00:00 24 10/18/19 00:00 69 10/18/19 00:00 98.4 71 14 151/71 (97) 99 10/17/19 22:54 67 12 24 10/17/19 20:53 77 151/74 10/17/19 20:00 24 10/17/19 20:00 Mechanical Ventilator 10/17/19 20:00 98.2 75 12 151/74 (99) 100 10/17/19 19:31 77 10/17/19 19:30 78 16 24 10/17/19 16:00 24 10/17/19 16:00 Mechanical Ventilator 10/17/19 16:00 97.7 75 14 140/65 (90) 100 10/17/19 15:55 73 Intake and Output 10/17/19 10/18/19 19:00 07:00 Intake Total 605 ml 450 ml Output Total 40 ml 300 ml Balance 565 ml 150 ml Free Water 290 ml Tube Feeding 315 ml 450 ml Stool Total 40 ml 300 ml # Bowel Movements 1 Laboratory Tests 10/17/19 16:42: POC Whole Blood Glucose 158H 10/18/19 03:15: White Blood Count 16.3H, Red Blood Count 3.81L, Hemoglobin 9.0L, Hematocrit 29.8L, Mean Corpuscular Volume 78L, Mean Corpuscular Hemoglobin 23.7L, Mean Corpuscular Hemoglobin Concent 30.3L, Red Cell Distribution Width 16.7H, Platelet Count 746H, Mean Platelet Volume 5.6L, Neutrophils (%) (Auto) 65.7, Lymphocytes (%) (Auto) 16.2L, Monocytes (%) (Auto) 9.7, Eosinophils (%) (Auto) 7.1H, Basophils (%) (Auto) 1.3, Sodium Level 132L, Potassium Level 3.8, Chloride Level 96L, Carbon Dioxide Level 26, Anion Gap 10, Blood Urea Nitrogen 100H, Creatinine 4.4H, Estimat Glomerular Filtration Rate 13.1, Glucose Level 172H, Calcium Level 9.3, Total Bilirubin 0.4, Aspartate Amino Transf (AST/SGOT) 74H, Alanine Aminotransferase (ALT/SGPT) 73, Alkaline Phosphatase 246H, Total Protein 9.1H, Albumin 2.2L, Globulin 6.9, Albumin/Globulin Ratio 0.3L 10/18/19 11:36: POC Whole Blood Glucose 124H Height (Feet): 5 Height (Inches): 10.00 Weight (Pounds): 123 Objective CV RR Trach clean Lungs CTA Perma Cath RIJ. Abd SNT. BS + E No CCE Erica Pichardo MD Oct 18, 2019 15:28
[2019-10-18 16:00] VITALS: BP 103/42
--- NOTE | 2019-10-18 17:37 | General Progress Note ---
Assessment/Plan Assessment/Plan: IMPRESSION: 1. anemia. 2. fevers improved 3. Leukocytosis. 4. hypotension 5. Acute on chronic renal failure. 6. Hyponatremia. 7. Severe protein-calorie malnutrition. 8. Significantly elevated C-reactive protein concerning for infectious etiology. 9. Tracheostomy, G-tube. 10. Ventilator dependence. 11. anasarca 12. Hematuria 13. V pacing 14. hyponatremia 15. transaminitis, HIDA negative PLAN chronic care; unable to place care noted on vent/ no wean monitor labs and optimize ID follow up dialysis ongoing prognosis poor for recovery impression, plan, and exam edited and reviewed in detail care discussed with RN Subjective Allergies: Coded Allergies: No Known Allergies (Unverified , 06/10/19) Subjective remains ill on vent/ no change on HD vitals noted Objective Last 24 Hour Vital Signs Date Time Temp Pulse Resp B/P (MAP) Pulse Ox O2 Delivery O2 Flow Rate FiO2 10/18/19 16:00 97.9 81 15 103/42 (62) 98 10/18/19 16:00 24 10/18/19 16:00 81 10/18/19 16:00 Mechanical Ventilator 10/18/19 15:00 82 17 24 10/18/19 12:00 97.9 89 15 151/71 (97) 95 10/18/19 12:00 Mechanical Ventilator 10/18/19 12:00 24 10/18/19 11:56 78 20 24 10/18/19 11:32 88 10/18/19 08:00 83 10/18/19 08:00 Mechanical Ventilator 10/18/19 08:00 24 10/18/19 07:54 99.1 86 15 138/83 (101) 98 10/18/19 07:23 85 16 24 10/18/19 04:00 98.2 82 15 146/54 (84) 99 10/18/19 04:00 Mechanical Ventilator 10/18/19 04:00 24 10/18/19 03:29 73 10/18/19 02:45 72 16 24 10/18/19 00:00 Mechanical Ventilator 10/18/19 00:00 24 10/18/19 00:00 69 10/18/19 00:00 98.4 71 14 151/71 (97) 99 10/17/19 22:54 67 12 24 9/8/20 20:53 77 151/74 10/17/19 20:00 24 10/17/19 20:00 Mechanical Ventilator 10/17/19 20:00 98.2 75 12 151/74 (99) 100 10/17/19 19:31 77 10/17/19 19:30 78 16 24 Intake and Output 10/17/19 10/18/19 19:00 07:00 Intake Total 605 ml 450 ml Output Total 40 ml 300 ml Balance 565 ml 150 ml Free Water 290 ml Tube Feeding 315 ml 450 ml Stool Total 40 ml 300 ml # Bowel Movements 1 Laboratory Tests 10/18/19 03:15: White Blood Count 16.3H, Red Blood Count 3.81L, Hemoglobin 9.0L, Hematocrit 29.8L, Mean Corpuscular Volume 78L, Mean Corpuscular Hemoglobin 23.7L, Mean Corpuscular Hemoglobin Concent 30.3L, Red Cell Distribution Width 16.7H, Platelet Count 746H, Mean Platelet Volume 5.6L, Neutrophils (%) (Auto) 65.7, Lymphocytes (%) (Auto) 16.2L, Monocytes (%) (Auto) 9.7, Eosinophils (%) (Auto) 7.1H, Basophils (%) (Auto) 1.3, Sodium Level 132L, Potassium Level 3.8, Chloride Level 96L, Carbon Dioxide Level 26, Anion Gap 10, Blood Urea Nitrogen 100H, Creatinine 4.4H, Estimat Glomerular Filtration Rate 13.1, Glucose Level 172H, Calcium Level 9.3, Total Bilirubin 0.4, Aspartate Amino Transf (AST/SGOT) 74H, Alanine Aminotransferase (ALT/SGPT) 73, Alkaline Phosphatase 246H, Total Protein 9.1H, Albumin 2.2L, Globulin 6.9, Albumin/Globulin Ratio 0.3L 10/18/19 11:36: POC Whole Blood Glucose 124H 10/18/19 16:19: POC Whole Blood Glucose 177H Height (Feet): 5 Height (Inches): 10.00 Weight (Pounds): 123 Objective GENERAL: Ill-appearing male, chronically debilitated. HEENT: Tracheostomy in midline. Questionable fullness in the submandibular region. LUNGS: Coarse breath sounds. reduced breath sounds CARDIAC: S1, S2. Regular rate and rhythm. borderline tachy ABDOMEN: Soft. G-tube. EXTREMITIES: With noted edema. NEUROLOGICAL: Poorly responsive, weak diffusely. Kain Ramirez MD Oct 18, 2019 17:37
--- NOTE | 2019-10-18 19:30 | NUR ---
NURSE NOTES: Received pt's report from TAMICA Espino. Pt is on bed, sleeping. Pt is on vent. SpO2 98%, RR 15, HR 90. No s/s of respiratory distress noted. Pt is on G-tube, Nepro is running. Pt is on rectal tube, greenish brown stool noted. IV sites are clean and intact. Call-light within reach. Bed is low and locked. Bed alarm is on. Will continue to monitor with plan of care.
[2019-10-18 20:00] VITALS: BP 119/57
[2019-10-18] MEDS: Dyna-Hex 2% Top Sol 2oz TOPIC SCH (20:11)
[2019-10-18] MEDS: Epoetin Alfa-EPBX(ESRD on dialysis)10,000 unit/ml vial SUBQ SCH (21:14)
--- NOTE | 2019-10-18 23:26 | General Progress Note ---
Assessment/Plan Assessment/Plan: Assessment - abdominal distention, due to colonic dysmotility, - colonoscopy negative to hepatic flexure - diarrhea - presumed TF related - abnormal LFT - ? etiology --> HIDA negative and CT negative - Anemia - leukocytosis - stool OB (+) - EGD --> gastritis - Renal failure - Anasarca - resp failure, trach - b/l pleural effusions - dysphagia, GT - encephalopathy, contracted - poor px Recommendations - continue TF - Off of Statin - LFT better - ? thoracentesis - rectal tube - roll side to side as feasible (hard due to severe contractions) - Elevate HOB - f/u labs - PPI - abx - supportive care Subjective Allergies: Coded Allergies: No Known Allergies (Unverified , 06/10/19) Subjective above noted NAD on TF minimal thick liquid stool in rectal tube Objective Last 24 Hour Vital Signs Date Time Temp Pulse Resp B/P (MAP) Pulse Ox O2 Delivery O2 Flow Rate FiO2 10/18/19 20:12 84 122/58 10/18/19 20:00 24 10/18/19 20:00 98.2 83 15 119/57 (77) 98 10/18/19 20:00 Mechanical Ventilator 10/18/19 19:11 86 16 24 10/18/19 19:03 82 10/18/19 16:00 97.9 81 15 103/42 (62) 98 10/18/19 16:00 24 10/18/19 16:00 81 10/18/19 16:00 Mechanical Ventilator 10/18/19 15:00 82 17 24 10/18/19 12:00 97.9 89 15 151/71 (97) 95 10/18/19 12:00 Mechanical Ventilator 10/18/19 12:00 24 10/18/19 11:56 78 20 24 10/18/19 11:32 88 10/18/19 08:00 83 10/18/19 08:00 Mechanical Ventilator 10/18/19 08:00 24 10/18/19 07:54 99.1 86 15 138/83 (101) 98 10/18/19 07:23 85 16 24 10/18/19 04:00 98.2 82 15 146/54 (84) 99 10/18/19 04:00 Mechanical Ventilator 10/18/19 04:00 24 10/18/19 03:29 73 10/18/19 02:45 72 16 24 10/18/19 00:00 Mechanical Ventilator 10/18/19 00:00 24 10/18/19 00:00 69 10/18/19 00:00 98.4 71 14 151/71 (97) 99 Intake and Output 10/17/19 10/18/19 19:00 07:00 Intake Total 605 ml 495 ml Output Total 40 ml 300 ml Balance 565 ml 195 ml Free Water 290 ml Tube Feeding 315 ml 495 ml Stool Total 40 ml 300 ml # Bowel Movements 1 Laboratory Tests 10/18/19 03:15: White Blood Count 16.3H, Red Blood Count 3.81L, Hemoglobin 9.0L, Hematocrit 29.8L, Mean Corpuscular Volume 78L, Mean Corpuscular Hemoglobin 23.7L, Mean Corpuscular Hemoglobin Concent 30.3L, Red Cell Distribution Width 16.7H, Platelet Count 746H, Mean Platelet Volume 5.6L, Neutrophils (%) (Auto) 65.7, Lymphocytes (%) (Auto) 16.2L, Monocytes (%) (Auto) 9.7, Eosinophils (%) (Auto) 7.1H, Basophils (%) (Auto) 1.3, Sodium Level 132L, Potassium Level 3.8, Chloride Level 96L, Carbon Dioxide Level 26, Anion Gap 10, Blood Urea Nitrogen 100H, Creatinine 4.4H, Estimat Glomerular Filtration Rate 13.1, Glucose Level 172H, Calcium Level 9.3, Total Bilirubin 0.4, Aspartate Amino Transf (AST/SGOT) 74H, Alanine Aminotransferase (ALT/SGPT) 73, Alkaline Phosphatase 246H, Total Protein 9.1H, Albumin 2.2L, Globulin 6.9, Albumin/Globulin Ratio 0.3L 10/18/19 11:36: POC Whole Blood Glucose 124H 10/18/19 16:19: POC Whole Blood Glucose 177H Height (Feet): 5 Height (Inches): 10.00 Weight (Pounds): 123 Objective Debilitated AA man NCAT (+) trach coarse BS RR abd less distended, anasarca, (+) GT, (+) rectal tube ext contracted Ronny Mustafa MD Oct 18, 2019 23:26
[2019-10-19] VITALS: BP 122/54
[2019-10-19 04:00] VITALS: BP 135/52
[2019-10-19] MEDS: NovoLOG Insulin Flexpen SUBQ SCH ×3 (05:26→17:12)
--- NOTE | 2019-10-19 07:01 | NUR ---
NURSE HAND-OFF REPORT: Important Events on Shift:N/A Patient Status: stable Diet: Nepro @ 45ml/hr Pending Orders: n/a Pending Results/Labs:n/a Pending MD notification:n/a Latest Vital Signs: Temperature 98.2 , Pulse 73 , B/P 135 /52 , Respiratory Rate 15 , O2 SAT 99 , Mechanical Ventilator, O2 Flow Rate 15.0 . Vital Sign Comment: stable EKG Rhythm: V-Paced Rhythm change?: N MD Notified?: N - MD Response: Latest Delacruz Fall Score: 70 Fall Risk: High Risk Safety Measures: Call light Within Reach, Bed Alarm Zone 1, Side Rails Side Rails x3, Bed position Low and Locked. Fall Precautions: Yellow Socks Report given to Nikita.
--- NOTE | 2019-10-19 07:14 | NUR ---
NURSE NOTES: Received report from TAMICA Molina. Patient is resting in bed, in stable condition. No s/sx of SOB, breathing is even and unlabored, pt is on vent settings as ordered. Patient is nonverbal, observed no presence of pain or discomfort at this time. Bed is in lowest position, brakes engaged. Call light is kept within easy reach. Will continue to monitor patient.
--- NOTE | 2019-10-19 07:24 | Hematology/Onc Progress Note ---
Assessment/Plan Assessment/Plan Assessment/recs # Anemia due to chronic disease/kidney disease as well, gi bleed + occult + noted --> was on iron in the past, now on hold --> has been started on Epogen sq --> as per renal care --> egd done and shows gastritis --> on ppi --> egd showed gastritis, colo recently done --> hgb 9-->8.7-->7.6-->9.2-->8.9-->9.2->9.3-->8.8->9.9-->9.2-->8.1-->8.7-->7.9- ->8.6-->8.9-->8.2->9-->9.3->8.9-->9.5-->10.6->9.2-->10->8.9-->8.3-->8.9-->9.9--> 9.3-->9 --> spep ordered->wnl # Leukocytosis - with multiple infections, VRE UTI, flow is negative --> wbc trend 33-->28-->25->23->22->23->24->17.3-->17-->14->16-->15.6-->14-->14- >13->19->18->17->22->22->19->17-->18->20-->15-->14->16-->14-->17->18-->17->15--> 16 --> on abx, linezolid and zosyn--> zosyn-->gent-->off --> + blood cultures with coag neg staph likely contaminated --> as per id recs --> has ordered a flow cytometry (with pathology) --> does show increased nK cell activity --> JOURDAN 2 and bcr-abl labs ordered (these are send outs)->negative --> plt 585-->613-->649-->669->663-->529-->506-->620-->720 # Elevated ddimer on admission --> duplex lower legs neg for dvt # Respiratory failure --> per pulm, s/p trach --> COVID 19 test negative x 2 # Hyperlipidemia --> statin po # Dysphagia s/p gtube with nepro --> per gi # ESRD with r fem julito --> hd as per renal # Dvt ppx scds Appreciate consultation and matt Rn Subjective Allergies: Coded Allergies: No Known Allergies (Unverified , 06/10/19) All Systems: reviewed and negative except above Subjective 08/15 meds noted, no bleeding, hgb 8.8, wbc 28, path flow pending 08/16 flow pending dw pathologist, results pending, wbc 25, hgb 9 08/17 labs reviewed, meds reviewed, meds noted, no night sweats 08/19 remains obtunded, on vent/trach, no bleeding wbc 21.7 08/20 labs have been reviewed, no bleeding, wbc still elev, path reviewed 08/21 labs are noted, no bleeding, on vent, wbc better 08/22 labs noted, no bleeding, meds reviewed, wbc 24 hgb 7.6 08/23 vent, off abx, c diff negative, h/h stable 08/24 labs reviewed, on abx, wbc 17, hgb 8.9, no hemolysis 08/26 reviewed flow and is negative for leukemia, matt rn 08/27 meds reviewed, no night sweats, matt rn, no major bleeding 08/28 meds reivewed, labs noted 08/29 wbc is stable, approx 15, hgb 8.8, no hemolysis 08/30 labs are noted, is for colo today, hgb 9.9 08/31 right fem julito in place, unchanged, hgb 9.2, gi aware 09/01 labs noted, hgb 8.8, plt >600, no bleeding 09/02 labs noted, no bleeding, with elev wbc still, no new changes 09/03 meds are noted, no bleeding, labs reviewed hgb 8.6 09/04 no major events, hd as per renal, abx, no bleeding hgb low 09/05 labs are noted, no bleeding, meds have been reviewed 09/06 no new labs no hemolysis, cbc is noted, no bleeding 09/07 meds reviewed, no bleeding, matt rn, permacath functioning well 09/09 meds reviewed, wbc still elevated, as per id recs, cbc noted 09/10 is obtunded, with gutbe in place, labs reviewed 09/11 obtunded, as per id, observe now off abx, labs noted, wbc 19 09/12 cbc is pending, remains on epogen, also off abx 09/13 labs reviewed, no bleeding, elev wbc, no night sweats 09/14 meds noted, no bleeding, wbc 19, hgb 9.5, no night sweats 09/21 obtunded, remains on vent, labs noted, no bleeding, hgb 8.9 09/22 obtunded, labs noted, no bleeding, on vent, unchanged 09/23 unchanges, wbc remains elevated 20k, on abx, on vent 09/24 labs have been reviewed, no bleeding, wbc 15, may need abx 09/25 formula gtube changed, labs noted, remains obtunded, hgb 9.3 09/26 labs have been reviewed, no bleeding, matt rn, no night sweats 09/27 meds reviewed, no bleeding, wbc 14, on abx, remains obtunded 09/28 remains obtunded, no bleeding, wbc better, hgb 8.9, no hemolysis, plt 506 09/30 on colisitn, wbc elevated, cefepime added per id, hgb stable 10/01 labs reviewed, no bleeding, matt rn, no major events noted, wbc 14, hgb 10.6 10/02 labs have been noted, hgb 9.2, wbc 17, on abx, matt wright 10/03 continue on tube feeds, no bleeding, on vent, wbc remains elevated 10/04 remains ibtunded, is on a mechanical ventilator with tube feeds noted 10/05 labs are noted, hgb 8.6, wbc remains elevated, have ordered for spep 10/07 obtunded on vent, with gtube feeds, labs reviewed, matt wright 10/08 labs are noted, on vent/trach, hgb 10.2, remains obtunded 10/09 labns noted, wbc 15, hgb 8.9, remains altered, on tfs 10/10 labs noted, holding tube feeds, dw rn, hg stable 8.3 currently 10/11 remains on tfs, supportive care, labs noted, no bleeding 10/12 remains obtunded, hgb 8.9, no hemolysis is seen 10/14 labs reviewed, no bleeding, pending potential hd if rn available 10/15 is on vent, with gtube, labs reviewed, no bleeding, to get hd soon 10/16 remains on vent, matt rn at bedside, wbc 15, abx prn, plt also higher, will monitor 10/17 on vent, continue on tube feeds via gtube, labs improved 10/18 labs noted, remains on vent, and tube feeds, no major changes Objective Objective Current Medications Medications (Trade) Dose Ordered Sig/Leonel Route PRN Reason Start Time Stop Time Status Last Admin Dose Admin Acetaminophen (Tylenol) 650 mg Q4H PRN GT Mild Pain (Pain Scale 1-3) 09/21/19 12:45 10/21/19 12:44 10/15/19 17:35 Chlorhexidine Gluconate (Felipa-Hex 2%) 1 applic DAILY@1999 TOPIC 09/12/19 20:00 12/11/19 19:59 10/18/19 20:11 Clonidine HCl (Catapres Tab) 0.1 mg Q4H PRN GT For High Blood Pressure 09/09/19 12:30 12/08/19 05:29 09/15/19 04:10 Dextrose (Dextrose 50%) 25 ml Q30M PRN IV Hypoglycemia 08/09/19 07:30 11/07/19 07:29 Dextrose (Dextrose 50%) 50 ml Q30M PRN IV Hypoglycemia 08/09/19 07:30 11/07/19 07:29 Diphenoxylate HCl/ Atropine (Lomotil) 2.5 mg QID PRN ORAL Diarrhea 09/24/19 08:45 10/24/19 08:44 Epoetin Andreas (Epoetin Andreas(ESRD on dialysis)) 10,000 unit WED-WED-WED SUBQ 10/09/19 21:00 01/07/20 20:59 10/18/19 21:14 Famotidine (Pepcid) 20 mg DAILY GT 08/30/19 09:00 11/28/19 08:59 10/18/19 08:04 Insulin Aspart (NovoLOG) Q6HR SUBQ 09/25/19 18:00 11/07/19 11:29 10/19/19 05:26 Lactobacillus Acidophilus (Culturelle) 1 tab EVERY 12 HOURS GT 10/03/19 21:00 12/13/19 17:59 10/18/19 20:11 Loperamide HCl (Imodium) 2 mg Q6H PRN NG Diarrhea 10/15/19 07:45 11/14/19 07:44 Metoprolol Tartrate (Lopressor) 200 mg Q12HR GT 08/09/19 09:00 11/07/19 08:59 10/18/19 20:12 Minoxidil (Loniten) 5 mg DAILY GT 08/09/19 09:00 11/07/19 08:59 10/17/19 08:11 Zinc Oxide (Zinc Oxide) 1 applic EVERY 12 HOURS TOPIC 10/03/19 09:00 11/08/19 17:59 10/18/19 21:14 Last 24 Hour Vital Signs Date Time Temp Pulse Resp B/P (MAP) Pulse Ox O2 Delivery O2 Flow Rate FiO2 10/19/19 07:06 75 15 24 10/19/19 04:00 Mechanical Ventilator 10/19/19 04:00 24 10/19/19 04:00 98.2 73 15 135/52 (79) 99 10/19/19 03:39 73 10/19/19 03:05 72 16 24 10/19/19 00:00 98.1 70 13 122/54 (76) 99 10/19/19 00:00 68 10/19/19 00:00 Mechanical Ventilator 10/18/19 23:27 68 13 24 10/18/19 20:12 84 122/58 10/18/19 20:00 24 10/18/19 20:00 98.2 83 15 119/57 (77) 98 10/18/19 20:00 Mechanical Ventilator 10/18/19 19:11 86 16 24 10/18/19 19:03 82 10/18/19 16:00 97.9 81 15 103/42 (62) 98 10/18/19 16:00 24 10/18/19 16:00 81 10/18/19 16:00 Mechanical Ventilator 10/18/19 15:00 82 17 24 10/18/19 12:00 97.9 89 15 151/71 (97) 95 10/18/19 12:00 Mechanical Ventilator 10/18/19 12:00 24 10/18/19 11:56 78 20 24 10/18/19 11:32 88 10/18/19 08:00 83 10/18/19 08:00 Mechanical Ventilator 10/18/19 08:00 24 10/18/19 07:54 99.1 86 15 138/83 (101) 98 10/18/19 07:23 85 16 24 10/18/19 04:00 98.2 82 15 146/54 (84) 99 10/18/19 04:00 Mechanical Ventilator 10/18/19 04:00 24 10/18/19 03:29 73 10/18/19 02:45 72 16 24 10/18/19 00:00 Mechanical Ventilator 10/18/19 00:00 24 10/18/19 00:00 69 10/18/19 00:00 98.4 71 14 151/71 (97) 99 10/17/19 22:54 67 12 24 10/17/19 20:53 77 151/74 10/17/19 20:00 24 10/17/19 20:00 Mechanical Ventilator 10/17/19 20:00 98.2 75 12 151/74 (99) 100 10/17/19 19:31 77 10/17/19 19:30 78 16 24 10/17/19 16:00 24 10/17/19 16:00 Mechanical Ventilator 10/17/19 16:00 97.7 75 14 140/65 (90) 100 10/17/19 15:55 73 10/17/19 15:09 53 25 24 10/17/19 12:00 24 10/17/19 12:00 Mechanical Ventilator 10/17/19 12:00 70 10/17/19 12:00 97.9 68 13 153/83 (106) 100 10/17/19 11:08 76 13 24 10/17/19 08:11 101 115/56 10/17/19 08:11 115/56 10/17/19 08:00 Mechanical Ventilator 10/17/19 08:00 98.6 97 15 156/75 (102) 100 10/17/19 08:00 98 10/17/19 08:00 24 Intake and Output 10/18/19 10/19/19 19:00 07:00 Intake Total 795 ml 695 ml Output Total 3000 ml 3200 ml Balance -2205 ml -2505 ml Free Water 300 ml 200 ml Tube Feeding 495 ml 495 ml Stool Total 200 ml Hemodialysis UF 3000 ml 3000 ml # Voids 1 1 # Bowel Movements 100 Labs Test 10/16/19 11:49 10/16/19 15:59 10/16/19 23:44 10/17/19 03:16 POC Whole Blood Glucose 121 MG/DL (74-106) 144 MG/DL (74-106) 167 MG/DL (74-106) White Blood Count 15.1 K/UL (4.8-10.8) Red Blood Count 3.78 M/UL (4.70-6.10) Hemoglobin 9.1 G/DL (14.2-18.0) Hematocrit 29.5 % (42.0-52.0) Mean Corpuscular Volume 78 FL (80-99) Mean Corpuscular Hemoglobin 24.1 PG (27.0-31.0) Mean Corpuscular Hemoglobin Concent 30.9 G/DL (32.0-36.0) Red Cell Distribution Width 16.7 % (11.6-14.8) Platelet Count 720 K/UL (150-450) Mean Platelet Volume 5.6 FL (6.5-10.1) Neutrophils (%) (Auto) 67.4 % (45.0-75.0) Lymphocytes (%) (Auto) 17.5 % (20.0-45.0) Monocytes (%) (Auto) 9.2 % (1.0-10.0) Eosinophils (%) (Auto) 5.0 % (0.0-3.0) Basophils (%) (Auto) 1.0 % (0.0-2.0) Sodium Level 134 MMOL/L (136-145) Potassium Level 3.8 MMOL/L (3.5-5.1) Chloride Level 98 MMOL/L (98-107) Carbon Dioxide Level 27 MMOL/L (21-32) Anion Gap 9 mmol/L (5-15) Blood Urea Nitrogen 64 mg/dL (7-18) Creatinine 3.6 MG/DL (0.55-1.30) Estimat Glomerular Filtration Rate 16.5 mL/min (>60) Glucose Level 146 MG/DL (74-106) Calcium Level 9.2 MG/DL (8.5-10.1) Phosphorus Level 2.3 MG/DL (2.5-4.9) Test 10/17/19 05:05 10/17/19 11:22 10/17/19 16:42 10/18/19 03:15 POC Whole Blood Glucose 173 MG/DL (74-106) 107 MG/DL (74-106) 158 MG/DL (74-106) White Blood Count 16.3 K/UL (4.8-10.8) Red Blood Count 3.81 M/UL (4.70-6.10) Hemoglobin 9.0 G/DL (14.2-18.0) Hematocrit 29.8 % (42.0-52.0) Mean Corpuscular Volume 78 FL (80-99) Mean Corpuscular Hemoglobin 23.7 PG (27.0-31.0) Mean Corpuscular Hemoglobin Concent 30.3 G/DL (32.0-36.0) Red Cell Distribution Width 16.7 % (11.6-14.8) Platelet Count 746 K/UL (150-450) Mean Platelet Volume 5.6 FL (6.5-10.1) Neutrophils (%) (Auto) 65.7 % (45.0-75.0) Lymphocytes (%) (Auto) 16.2 % (20.0-45.0) Monocytes (%) (Auto) 9.7 % (1.0-10.0) Eosinophils (%) (Auto) 7.1 % (0.0-3.0) Basophils (%) (Auto) 1.3 % (0.0-2.0) Sodium Level 132 MMOL/L (136-145) Potassium Level 3.8 MMOL/L (3.5-5.1) Chloride Level 96 MMOL/L (98-107) Carbon Dioxide Level 26 MMOL/L (21-32) Anion Gap 10 mmol/L (5-15) Blood Urea Nitrogen 100 mg/dL (7-18) Creatinine 4.4 MG/DL (0.55-1.30) Estimat Glomerular Filtration Rate 13.1 mL/min (>60) Glucose Level 172 MG/DL (74-106) Calcium Level 9.3 MG/DL (8.5-10.1) Total Bilirubin 0.4 MG/DL (0.2-1.0) Aspartate Amino Transf (AST/SGOT) 74 U/L (15-37) Alanine Aminotransferase (ALT/SGPT) 73 U/L (12-78) Alkaline Phosphatase 246 U/L (46-116) Total Protein 9.1 G/DL (6.4-8.2) Albumin 2.2 G/DL (3.4-5.0) Globulin 6.9 g/dL Albumin/Globulin Ratio 0.3 (1.0-2.7) Test 10/18/19 11:36 10/18/19 16:19 POC Whole Blood Glucose 124 MG/DL (74-106) 177 MG/DL (74-106) Height (Feet): 5 Height (Inches): 10.00 Weight (Pounds): 123 Objective Physical Exam General Appearance: nad, Chronically Ill Head: normocephalic Eyes: right eye PERRL - Will not open left eye ENT: moist mucus membranes Neck: other - submandibular mass R, fairly rigid with resistance to rotation to L, tracheotomy Respiratory: decreased breath sounds, crackles, other - pacemaker, vent+ Cardiovascular: regular rate, rhythm, edema - anasarca Gastrointestinal: non tender, distended, other - G tube Genitourinary: other Musculoskeletal: other - Contractures all extremities Neurologic: sensory intact, motor weakness, responsive Psychiatric: other Skin: Decubitus/Ulcer - Stage III right elbow, stage III left elbow, stage II sacrum, stage III scrotum, warm/dry Fitz Campos MD Oct 19, 2019 07:23
--- NOTE | 2019-10-19 07:56 | General Progress Note ---
Assessment/Plan Assessment/Plan: IMPRESSION: 1. anemia. 2. fevers improved 3. Leukocytosis. 4. hypotension 5. Acute on chronic renal failure. 6. Hyponatremia. 7. Severe protein-calorie malnutrition. 8. Significantly elevated C-reactive protein concerning for infectious etiology. 9. Tracheostomy, G-tube. 10. Ventilator dependence. 11. anasarca 12. Hematuria 13. V pacing 14. hyponatremia 15. transaminitis, HIDA negative PLAN chronic care; unable to place care noted on vent/ no wean monitor labs and optimize ID follow up dialysis ongoing prognosis poor for recovery impression, plan, and exam edited and reviewed in detail care discussed with RN Subjective Allergies: Coded Allergies: No Known Allergies (Unverified , 06/10/19) Subjective remains ill on vent/ no change on HD vitals noted Objective Last 24 Hour Vital Signs Date Time Temp Pulse Resp B/P (MAP) Pulse Ox O2 Delivery O2 Flow Rate FiO2 10/19/19 07:06 75 15 24 10/19/19 04:00 Mechanical Ventilator 10/19/19 04:00 24 10/19/19 04:00 98.2 73 15 135/52 (79) 99 10/19/19 03:39 73 10/19/19 03:05 72 16 24 10/19/19 00:00 98.1 70 13 122/54 (76) 99 10/19/19 00:00 68 10/19/19 00:00 Mechanical Ventilator 10/18/19 23:27 68 13 24 10/18/19 20:12 84 122/58 10/18/19 20:00 24 10/18/19 20:00 98.2 83 15 119/57 (77) 98 10/18/19 20:00 Mechanical Ventilator 10/18/19 19:11 86 16 24 10/18/19 19:03 82 10/18/19 16:00 97.9 81 15 103/42 (62) 98 10/18/19 16:00 24 10/18/19 16:00 81 10/18/19 16:00 Mechanical Ventilator 10/18/19 15:00 82 17 24 10/18/19 12:00 97.9 89 15 151/71 (97) 95 10/18/19 12:00 Mechanical Ventilator 10/18/19 12:00 24 10/18/19 11:56 78 20 24 10/18/19 11:32 88 10/18/19 08:00 83 10/18/19 08:00 Mechanical Ventilator 10/18/19 08:00 24 Intake and Output 10/18/19 10/19/19 19:00 07:00 Intake Total 795 ml 695 ml Output Total 3000 ml 3200 ml Balance -2205 ml -2505 ml Free Water 300 ml 200 ml Tube Feeding 495 ml 495 ml Stool Total 200 ml Hemodialysis UF 3000 ml 3000 ml # Voids 1 1 # Bowel Movements 100 Laboratory Tests 10/18/19 11:36: POC Whole Blood Glucose 124H 10/18/19 16:19: POC Whole Blood Glucose 177H Height (Feet): 5 Height (Inches): 10.00 Weight (Pounds): 123 Objective GENERAL: Ill-appearing male, chronically debilitated. HEENT: Tracheostomy in midline. Questionable fullness in the submandibular region. LUNGS: Coarse breath sounds. reduced breath sounds CARDIAC: S1, S2. Regular rate and rhythm. borderline tachy ABDOMEN: Soft. G-tube. EXTREMITIES: With noted edema. NEUROLOGICAL: Poorly responsive, weak diffusely. Kain Ramirez MD Oct 19, 2019 07:56
[2019-10-19 08:00] VITALS: BP 138/75
[2019-10-19] MEDS: Minoxidil 2.5mg tab GT SCH (08:11)
[2019-10-19] MEDS: Metoprolol Tartrate 100mg tab GT SCH ×2 (08:11→20:27)
[2019-10-19] MEDS: Lactobacillus-GG tablet GT SCH ×2 (08:11→20:27)
[2019-10-19] MEDS: Zinc Oxide Oint 2oz TOPIC SCH ×2 (08:12→20:27)
--- NOTE | 2019-10-19 10:24 | Nephrology Progress Note ---
Assessment/Plan Plan [facility] ESRD - HD now MWF Anemia of CKD -TUYET. Subjective Subjective Obtunded Objective Objective Last 24 Hour Vital Signs Date Time Temp Pulse Resp B/P (MAP) Pulse Ox O2 Delivery O2 Flow Rate FiO2 10/19/19 08:11 76 148/70 10/19/19 08:11 148/70 10/19/19 08:00 24 10/19/19 08:00 Mechanical Ventilator 10/19/19 08:00 98.1 75 15 138/75 (96) 99 10/19/19 07:42 75 10/19/19 07:06 75 15 24 10/19/19 04:00 Mechanical Ventilator 10/19/19 04:00 24 10/19/19 04:00 98.2 73 15 135/52 (79) 99 10/19/19 03:39 73 10/19/19 03:05 72 16 24 10/19/19 00:00 98.1 70 13 122/54 (76) 99 10/19/19 00:00 68 10/19/19 00:00 Mechanical Ventilator 10/18/19 23:27 68 13 24 10/18/19 20:12 84 122/58 10/18/19 20:00 24 10/18/19 20:00 98.2 83 15 119/57 (77) 98 10/18/19 20:00 Mechanical Ventilator 10/18/19 19:11 86 16 24 10/18/19 19:03 82 10/18/19 16:00 97.9 81 15 103/42 (62) 98 10/18/19 16:00 24 10/18/19 16:00 81 10/18/19 16:00 Mechanical Ventilator 10/18/19 15:00 82 17 24 10/18/19 12:00 97.9 89 15 151/71 (97) 95 10/18/19 12:00 Mechanical Ventilator 10/18/19 12:00 24 10/18/19 11:56 78 20 24 10/18/19 11:32 88 Intake and Output 10/18/19 10/19/19 19:00 07:00 Intake Total 795 ml 695 ml Output Total 3000 ml 3200 ml Balance -2205 ml -2505 ml Free Water 300 ml 200 ml Tube Feeding 495 ml 495 ml Stool Total 200 ml Hemodialysis UF 3000 ml 3000 ml # Voids 1 1 # Bowel Movements 100 Laboratory Tests 10/18/19 11:36: POC Whole Blood Glucose 124H 10/18/19 16:19: POC Whole Blood Glucose 177H Height (Feet): 5 Height (Inches): 10.00 Weight (Pounds): 123 Objective CV RR Trach clean Lungs CTA Perma Cath RIJ. Abd SNT. BS + E No CCE Erica Pichardo MD Oct 19, 2019 10:24
--- NOTE | 2019-10-19 10:31 | Surgery Progress Note ---
Surgery Progress Note Subjective Procedure Performed Right femoral temporary hemodialysis catheter removal Additional Comments afebrile HD stable ongoing HD comfortable Objective Last 24 Hour Vital Signs Date Time Temp Pulse Resp B/P (MAP) Pulse Ox O2 Delivery O2 Flow Rate FiO2 10/19/19 08:11 76 148/70 10/19/19 08:11 148/70 10/19/19 08:00 24 10/19/19 08:00 Mechanical Ventilator 10/19/19 08:00 98.1 75 15 138/75 (96) 99 10/19/19 07:42 75 10/19/19 07:06 75 15 24 10/19/19 04:00 Mechanical Ventilator 10/19/19 04:00 24 10/19/19 04:00 98.2 73 15 135/52 (79) 99 10/19/19 03:39 73 10/19/19 03:05 72 16 24 10/19/19 00:00 98.1 70 13 122/54 (76) 99 10/19/19 00:00 68 10/19/19 00:00 Mechanical Ventilator 10/18/19 23:27 68 13 24 10/18/19 20:12 84 122/58 10/18/19 20:00 24 10/18/19 20:00 98.2 83 15 119/57 (77) 98 10/18/19 20:00 Mechanical Ventilator 10/18/19 19:11 86 16 24 10/18/19 19:03 82 10/18/19 16:00 97.9 81 15 103/42 (62) 98 10/18/19 16:00 24 10/18/19 16:00 81 10/18/19 16:00 Mechanical Ventilator 10/18/19 15:00 82 17 24 10/18/19 12:00 97.9 89 15 151/71 (97) 95 10/18/19 12:00 Mechanical Ventilator 10/18/19 12:00 24 10/18/19 11:56 78 20 24 10/18/19 11:32 88 I&O Intake and Output 10/18/19 10/19/19 19:00 07:00 Intake Total 795 ml 695 ml Output Total 3000 ml 3200 ml Balance -2205 ml -2505 ml Free Water 300 ml 200 ml Tube Feeding 495 ml 495 ml Stool Total 200 ml Hemodialysis UF 3000 ml 3000 ml # Voids 1 1 # Bowel Movements 100 Dressing: other Wound: other Cardiovascular: RSR Respiratory: decreased breath sounds Abdomen: soft, non-tender, present bowel sounds Extremities: no edema, no tenderness, no cyanosis Laboratory Tests Test 10/18/19 11:36 10/18/19 16:19 POC Whole Blood Glucose 124 MG/DL (74-106) H 177 MG/DL (74-106) H Plan Problems: (1) Anemia (2) Hyponatremia (3) Leukocytosis Assessment & Plan: Tracheostomy, left chest pacemaker are again demonstrated. There is bilateral interstitial and airspace disease and bilateral pleural fluid again demonstrated. This appears more severe than on the prior study. Bilateral interstitial and airspace infiltrates versus edema. Bilateral pleural effusions Leukocytosis, anemia, tachycardia, abnormal labs. Wound evaluated and likely etiology of patient's sepsis. Leukocytosis etiology work-up antibiotics per infectious disease Appreciate nephrology input transfuse with dialysis We will follow with recommendations thank you allowing participation's care plan HD access temp HD discussed with medical teams line okay HD as per renal persistent leukocytosis flow cyto noted improving trending down right fem line removed wbc fluctuating h/h stable lft's elevated There is a right pleural effusion Gallbladder demonstrates tiny wall adherent nonmobile echogenic foci, some possible mural calcifications, and comet tail artifact in the anterior wall. Patient unable to report sonographic Kent's sign. Common bile duct measures 4 mm in diameter. No intrahepatic biliary ductal dilatation. Liver demonstrates normal echogenicity, no focal abnormality. There is some surface nodularity. Portal vein and hepatic veins are patent. Pancreas is incompletely visualized due to overlying bowel gas, visualized portions are unremarkable. Spleen is unremarkable. Left kidney measures 8.7 cm in length. Right kidney measures 8.9 cm length. Both kidneys demonstrate increased echogenicity. There is no hydronephrosis. No focal abnormality . Abdominal aorta is partially obscured by bowel gas, visualized portions are non-aneurysmal . A gastrostomy is noted Impression: Tiny wall adherent nonmobile gallbladder echogenic foci, may reflect wall adherent calculi, small polyps, and/or pleural calcifications. Anterior wall comet tail artifact suggests foci of adenomyomatosis. Normal caliber common bile duct Possible hepatic surface nodularity, could indicate cirrhotic change Echogenic kidneys, consistent with medical renal disease. No hydronephrosis Right pleural effusion Gastrostomy Note nonvisualization of portions of the pancreas and abdominal aorta HIDA NEGATIVE trend labs (4) Ventilator dependent (5) Right lower lobe pneumonia (6) Hypokalemia (7) Hyperkalemia (8) Anasarca (9) Decubitus skin ulcer Assessment & Plan: pt presented on admission with generalized edemae.Skin assessed under tracheostomy and no areas of concerns noted. GT Insertion is marginally erythematous with small amt slough at stoma. Unstageable Pressure Injury R elbow. Base of wound is 100% yellow slough, Borders are erythematous. Wound oozing small amt haemopurulent exudate.Darker skin tone without elevation in skin temp or erythema periwound. Pt's penis and scrotum are grossly edematous and enlarged and weeping serous exudate from numerous sites both from penis and scrotum. Two small open wounds noted at base of at base of shaft of penis ,and contreras aspect of scrotum. Both wounds oozing large amt sanguineous and serosanguineous exudate. Multiple open wounds with Biofilm at base of each wounds noted to contreras/lateral,inferior and posterior aspects of scrotum. These wounds noted to be oozing moderate amts of serosanguineous exudate. Hypertrophic scar with scattered areas of hyperpigmentation noted to Sacrum. DTPI noted to L Buttocks (L)7cm x (W)9cm. Base of wound is purple and indurated.Darker skin tone without erythema, induration or fluctuance R and L ischial tuberosities. Both heels are boggy with non-blanchable erythema. Tx.Plan: Cleanse wound R elbow with Saline. Apply TheraHoney, Apply Moisture Barrier Paste periwound. Cover with Optifoam drsg.Change Daily and prn. Wash GT site with soap and water.Pat dry. Apply Zinc Oxide Paste to GT site Daily. Leave Open to Air. Apply Zinc Oxide Paste to entire Scrotum, Place ABD pads to R and L lateral, and posterior aspects of scrotum TWICE daily. Apply Cavilon Skin Barrier to malleoli and both Heels. Cover each site with Optifoam drsgs. Change every 7 days and prn. Reposition at least every 2hours or as tolerated. Off-load heels with Pillows. APM/BECCA Mattress overlay. (10) Malnutrition Assessment & Plan: DAILY ESTIMATED NEEDS: Needs based on Renal, critical care, wound/ 61kg 22-30 kcals/kg 3995-1432 total kcals 1.25-2 g protein/kg 76-122 g total protein Fluid per MD, now on HD NUTRITION DIAGNOSIS: * Swallowing difficulty R/T respiratory failure, dysphagia as evidenced by trach/vent dep, PEG dep * Increased kcal/prot needs R/T wound healing as evidenced by admitted w/ multiple pressure injuries including full thickness wounds at junction of Shaft of penis, dorsal scrotum, R elbow, and DTPI @ L buttocks. CURRENT TF:Osmolite 1.2 @ 60ml/hr x 20 hrs + Garo BID ENTERAL NUTRITION RECOMMENDATIONS: Vital AF 1.2 @ 60ml/hr x 20 hrs to provide 1200ml, 1440kcal, 90g prot, 973ml free water * Rec 20 hr run time for GI rest. -> W/ improved GI status, rec Vital AF 1.2, an elemental and carb controlled TF -> monitor lytes and renal fxn closely, monitor need for renal TF -> TF @ goal will provide 1642mg K and 2025mg Phos -> HOB over 30 degrees/ water flush per MD -------- Trial of Osmolite 1.2 continue for now- Goal of 60ml/hr for 20 hrs (4 hrs bowel rest) to provide 1200ml, 1440 kcal, 67g pro, 984ml free H2O, -> Rec to add prosource 1 pack daily (11g pro) to better meet est pro needs. -> Monitor BG, K closely. Pt would require increased insulin coverage as TF at goal would provide 56g more carbs per day. ADDITIONAL RECOMMENDATIONS: * Per SNF: HT=63" GN=646 lbs (vs EMR wt of 166lbs) -> obtain re-calibrated bedscale wt, rec daily wt monitoring * Wound healing: con't Nephrovite + Garo BID/ Vit C dosing per Nephro * Monitor renal fxn and lytes closely w/ non-renal TF ->K low, phos wnl;updated mag level; rec increased insulin w/ BG labs * Daily wts w/ drop to 118-20 lbs, rec to recalibrate for accurate CBW * Consider DC Miralax if medically appropriate: +rectal tube (11) Uremia (12) CKD (chronic kidney disease) stage 5, GFR less than 15 ml/min (13) Colon distention Assessment & Plan: discussed with GI likely functional as having lots of loose bm rectal tube kub f/u s/p colonoscopy - findings reviewed with GI improved cont diet as tolerated Marked distention of the sigmoid colon. 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 No evidence of bowel wall thickening or pneumatosis 12 mm focus of contrast enhancement in the right pectineus muscle. While nonspecific in appearance, appearance raises concern for a possible pseudoaneurysm. Ill- defined thickening of the pectus medius muscle could indicate some intramuscular hemorrhage. The above findings were phoned to Dr. Urias at the time of interpretation Large bilateral pleural effusions Hazy pulmonary parenchymal opacities as well as dense consolidative opacities most likely represent pulmonary edema, but could represent pneumonia Evidence of anasarca elsewhere, with generalized edema of the subcutaneous fat Bladder wall thickening, raises concern for cystitis. Avalos catheter in place Colonic diverticulosis. No evidence of diverticulitis. Tracheostomy Pacemaker Gastrostomy Gastrostomy again demonstrated in satisfactory position. The stomach is otherwise unremarkable. The distal esophagus and duodenum are unremarkable. Ingested contrast reaches the colon. No small bowel distention or small bowel wall thickening. Interim placement of a rectal tube. There are a few colonic diverticula. No definite evidence of acute diverticulitis. The appendix is prominent in caliber, as previously No free or loculated intraperitoneal gas or fluid is evident. Again demonstrated is marked gaseous distention of the sigmoid colon which measures up to 12.6 cm in diameter, with the proximal aspect located laterally to the distal aspect, and caliber transition in the mesenteric root of both entry points. However, there is stool within the proximal portion which appears to be at least partially contrast opacified, and no definite persisting of the vascular pedicle demonstrated. The liver, gallbladder, bile ducts, pancreas, spleen, adrenals, kidneys are unremarkable. There are accessory splenules demonstrated. No retroperitoneal or mesenteric mass or adenopathy. No pelvic mass or adenopathy. The prostate is enlarged and protrudes into the inferior bladder. The bladder is thick-walled. Previously demonstrated Avalos catheter has been removed. Again demonstrated is a large right pleural effusion and a moderate to large left pleural effusion. Again demonstrated are compressive atelectatic changes of significant portions of both lower lobes. Pacemaker wires are seen within the heart. Previously demonstrated high attenuation focus within the right pectineus muscle is not evident. However, there is a low-attenuation area which measures 2 cm diameter centrally which is not evident previously. There is diffuse edema of the subcutaneous fat. This is less severe than was demonstrated previously. There are degenerative proliferative changes of the lumbar spine. Impression: Abnormal configuration of the sigmoid colon, with marked distention of a sigmoid, inversion of the relationships of the proximal and descending colon, and evidence of immediately apposed transition point raises concern for sigmoid volvulus. However, similarity to the prior exam, presence of what appears to be contrast opacified stool within the dilated segment, and lack of evidence of twisting of the vascular pedicle raises the possibility that this is baseline for this patient or possibly dysfunctional in nature. Correlate with clinical findings Enlarged prostate with protrusion into the bladder floor. Bladder neoplasm not completely excludable as a result Thick-walled bladder, may indicate cystitis or be due to chronic bladder lumen obstruction related to the above Abnormalities right pectineus muscle, with a 2 cm central low attenuation area. Note that previous exam have a high attenuation focus suspicious for a small pseudoaneurysm. 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 Colonic diverticulosis. No evidence of diverticulitis Gastrostomy in good position Rectal tube in good position Large right and moderate to large left pleural effusions. Resultant compressive pulmonary atelectatic changes or graft edema subcutaneous fat, less severe than was demonstrated on prior 08/17/2019 exam. Jonathan Urias Oct 19, 2019 10:31
--- NOTE | 2019-10-19 10:45 | NUR ---
NURSE NOTES: Called [facility] Nephrology and spoke with Sudheer, informed Sudheer that patient has hemodialysis ordered for 10/20/[address] Pichardo. Sudheer acknowledged and will make dialysis nurse aware. Logged in dialysis log book. Will continue to monitor patient.
--- NOTE | 2019-10-19 11:40 | Infectious Diseases Prog Note ---
Assessment/Plan Assessment/Plan A: 1. Pneumonia with Acinetobacter & Proteus treated COVID19 X2 : negative 2. ESRD on HD 3. Leukocytosis 4. Respiratory failure, Ventilator dependent 5. Anemia 6. Elevated transaminase 7. 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 Klebsiella catheter infection s/p removal 10. Diarrhea, C. difficile negative PLAN: 1. Observe off of antibiotic Subjective ROS Limited/Unobtainable: Yes Allergies: Coded Allergies: No Known Allergies (Unverified , 06/10/19) Objective Last 24 Hour Vital Signs Date Time Temp Pulse Resp B/P (MAP) Pulse Ox O2 Delivery O2 Flow Rate FiO2 10/19/19 11:07 72 13 24 10/19/19 08:11 76 148/70 10/19/19 08:11 148/70 10/19/19 08:00 24 10/19/19 08:00 Mechanical Ventilator 10/19/19 08:00 98.1 75 15 138/75 (96) 99 10/19/19 07:42 75 10/19/19 07:06 75 15 24 10/19/19 04:00 Mechanical Ventilator 10/19/19 04:00 24 10/19/19 04:00 98.2 73 15 135/52 (79) 99 10/19/19 03:39 73 10/19/19 03:05 72 16 24 10/19/19 00:00 98.1 70 13 122/54 (76) 99 10/19/19 00:00 68 10/19/19 00:00 Mechanical Ventilator 10/18/19 23:27 68 13 24 10/18/19 20:12 84 122/58 10/18/19 20:00 24 10/18/19 20:00 98.2 83 15 119/57 (77) 98 10/18/19 20:00 Mechanical Ventilator 10/18/19 19:11 86 16 24 10/18/19 19:03 82 10/18/19 16:00 97.9 81 15 103/42 (62) 98 10/18/19 16:00 24 10/18/19 16:00 81 10/18/19 16:00 Mechanical Ventilator 10/18/19 15:00 82 17 24 10/18/19 12:00 97.9 89 15 151/71 (97) 95 10/18/19 12:00 Mechanical Ventilator 10/18/19 12:00 24 10/18/19 11:56 78 20 24 Height (Feet): 5 Height (Inches): 10.00 Weight (Pounds): 123 General Appearance: cachetic HEENT: status post trach Respiratory/Chest: lungs clear, other - on ventilator Cardiovascular: normal rate Abdomen: soft, non tender, other - GT & rectal tube Extremities: no edema Neurologic/Psychiatric: aphasia Laboratory Tests Test 10/18/19 16:19 POC Whole Blood Glucose 177 MG/DL (74-106) H Current Medications Medications (Trade) Dose Ordered Sig/Leonel Route PRN Reason Start Time Stop Time Status Last Admin Dose Admin Acetaminophen (Tylenol) 650 mg Q4H PRN GT Mild Pain (Pain Scale 1-3) 09/21/19 12:45 10/21/19 12:44 10/15/19 17:35 Chlorhexidine Gluconate (Felipa-Hex 2%) 1 applic DAILY@2000 TOPIC 09/12/19 20:00 12/11/19 19:59 10/18/19 20:11 Clonidine HCl (Catapres Tab) 0.1 mg Q4H PRN GT For High Blood Pressure 09/09/19 12:30 12/08/19 05:29 09/15/19 04:10 Dextrose (Dextrose 50%) 25 ml Q30M PRN IV Hypoglycemia 08/09/19 07:30 11/07/19 07:29 Dextrose (Dextrose 50%) 50 ml Q30M PRN IV Hypoglycemia 08/09/19 07:30 11/07/19 07:29 Diphenoxylate HCl/ Atropine (Lomotil) 2.5 mg QID PRN ORAL Diarrhea 09/24/19 08:45 10/24/19 08:44 Epoetin Andreas (Epoetin Andreas(ESRD on dialysis)) 10,000 unit WED-WED-WED SUBQ 10/09/19 21:00 01/07/20 20:59 10/18/19 21:14 Famotidine (Pepcid) 20 mg DAILY GT 08/30/19 09:00 11/28/19 08:59 10/19/19 08:10 Heparin Sodium (Porcine) (Heparin Sod 1000 units/ml 10ml) 2,000 unit ONCE PRN IV dialysis 10/20/19 10:30 10/20/19 23:59 Heparin Sodium (Porcine) (Heparin) 1,000 unit POSTHD INJ 10/20/19 10:30 10/20/19 23:59 Insulin Aspart (NovoLOG) Q6HR SUBQ 09/25/19 18:00 11/07/19 11:29 10/19/19 05:26 Lactobacillus Acidophilus (Culturelle) 1 tab EVERY 12 HOURS GT 10/03/19 21:00 12/13/19 17:59 10/19/19 08:11 Loperamide HCl (Imodium) 2 mg Q6H PRN NG Diarrhea 10/15/19 07:45 11/14/19 07:44 Metoprolol Tartrate (Lopressor) 200 mg Q12HR GT 08/09/19 09:00 11/07/19 08:59 10/19/19 08:11 Minoxidil (Loniten) 5 mg DAILY GT 08/09/19 09:00 11/07/19 08:59 10/19/19 08:11 Sodium Chloride 1,000 ml @ 500 mls/hr Q2H PRN IVLG sbp<90 during hd 10/20/19 10:24 10/20/19 23:59 Zinc Oxide (Zinc Oxide) 1 applic EVERY 12 HOURS TOPIC 10/03/19 09:00 11/08/19 17:59 10/19/19 08:12 Real De Leon MD Oct 19, 2019 11:40
[2019-10-19 12:00] VITALS: BP 128/64
--- NOTE | 2019-10-19 13:42 | NUR ---
RN ANTE PARTUMOVEN BAKER SI: RESP FAILURE TRACH/VENT DEPENDENT T. 98.2 HR 79 RR 15 B/P 148/70 AC 12 TV 550 FIO2 24% PEEP 5 IS: LOPRESSOR GT PEPCID GT PLACEMENT PENDING STEP DOWN STATUS
--- NOTE | 2019-10-19 13:44 | NUR ---
FACILITIES LOCATOR NOTES CLINICALS REVIEWED AND FAXED. SPOKE WITH HARPER NO UPDATES AT THIS TIME. DCP ONGOING.
[2019-10-19 16:00] VITALS: BP 108/46
--- NOTE | 2019-10-19 19:12 | NUR ---
NURSE HAND-OFF REPORT: Important Events on Shift: Patient Status: Stable Diet: Nepro 45 ml/hr Pending Orders: None Pending Results/Labs:None Pending MD notification:None Latest Vital Signs: Temperature 98.1 , Pulse 76 , B/P 108 /46 , Respiratory Rate 15 , O2 SAT 99 , Mechanical Ventilator, O2 Flow Rate 15.0 . Vital Sign Comment: Stable EKG Rhythm: V-Paced Rhythm change?: N MD Notified?: N - MD Response: Latest Delacruz Fall Score: 70 Fall Risk: High Risk Safety Measures: Call light Within Reach, Bed Alarm Zone 1, Side Rails Side Rails x3, Bed position Low and Locked. Fall Precautions: Yellow Socks Report given to TAMICA Quinones.
--- NOTE | 2019-10-19 19:30 | NUR ---
NURSE NOTES: Report received from TAMICA Espino. Observed pt lying in the bed, obtunded. Trach to vent, Portex 8, AC 12, TV 550, FIO2 24%, PEEP 5. GT intact, running Nepro at 45cc/hr. Rectal tube noted, draining well. IV on L FA 24G, SL. Bed in the lowest position. Side rails up x3. will continue to monitor.
[2019-10-19 20:00] VITALS: BP 132/59
[2019-10-19] MEDS: Dyna-Hex 2% Top Sol 2oz TOPIC SCH (20:27)
--- NOTE | 2019-10-19 23:21 | General Progress Note ---
Assessment/Plan Assessment/Plan: Assessment - abdominal distention, due to colonic dysmotility, - colonoscopy negative to hepatic flexure - diarrhea - presumed TF related - abnormal LFT - ? etiology --> HIDA negative and CT negative - Anemia - leukocytosis - stool OB (+) - EGD --> gastritis - Renal failure - Anasarca - resp failure, trach - b/l pleural effusions - dysphagia, GT - encephalopathy, contracted - poor px Recommendations - continue TF - Off of Statin - LFT better - ? thoracentesis - rectal tube - roll side to side as feasible (hard due to severe contractions) - Elevate HOB - f/u labs - PPI - abx - supportive care Subjective Allergies: Coded Allergies: No Known Allergies (Unverified , 06/10/19) Subjective above noted NAD on TF minimal thick liquid stool in rectal tube d/w DTR at bedside - wants to continue current level of care Objective Last 24 Hour Vital Signs Date Time Temp Pulse Resp B/P (MAP) Pulse Ox O2 Delivery O2 Flow Rate FiO2 10/19/19 23:14 72 16 24 10/19/19 20:27 74 132/54 10/19/19 20:00 24 10/19/19 20:00 98.6 74 15 132/59 (83) 99 10/19/19 20:00 Mechanical Ventilator 10/19/19 20:00 74 10/19/19 19:31 75 17 24 10/19/19 16:00 24 10/19/19 16:00 Mechanical Ventilator 10/19/19 16:00 98.1 79 15 108/46 (66) 99 10/19/19 16:00 76 10/19/19 14:41 77 16 24 10/19/19 12:00 24 10/19/19 12:00 74 10/19/19 12:00 Mechanical Ventilator 10/19/19 12:00 98.2 79 15 128/64 (85) 99 10/19/19 11:07 72 13 24 10/19/19 08:11 76 148/70 10/19/19 08:11 148/70 10/19/19 08:00 24 10/19/19 08:00 Mechanical Ventilator 10/19/19 08:00 98.1 75 15 138/75 (96) 99 10/19/19 07:42 75 10/19/19 07:06 75 15 24 10/19/19 04:00 Mechanical Ventilator 10/19/19 04:00 24 10/19/19 04:00 98.2 73 15 135/52 (79) 99 10/19/19 03:39 73 10/19/19 03:05 72 16 24 10/19/19 00:00 98.1 70 13 122/54 (76) 99 10/19/19 00:00 68 10/19/19 00:00 Mechanical Ventilator 10/18/19 23:27 68 13 24 Intake and Output 10/18/19 10/19/19 19:00 07:00 Intake Total 795 ml 740 ml Output Total 3000 ml 3200 ml Balance -2205 ml -2460 ml Free Water 300 ml 200 ml Tube Feeding 495 ml 540 ml Stool Total 200 ml Hemodialysis UF 3000 ml 3000 ml # Voids 1 1 # Bowel Movements 100 Laboratory Tests 10/19/19 12:48: POC Whole Blood Glucose 189H 10/19/19 16:30: POC Whole Blood Glucose 152H Height (Feet): 5 Height (Inches): 10.00 Weight (Pounds): 123 Objective Debilitated AA man NCAT (+) trach coarse BS RR abd less distended, anasarca, (+) GT, (+) rectal tube ext contracted Ronny Mustafa MD Oct 19, 2019 23:21
[2019-10-20] VITALS: BP 151/58
--- NOTE | 2019-10-20 | NUR ---
NURSE NOTES: No acute distress noted at this time. Pt stable, sleeping in the bed. Reposition done. Oral care given. Will continue to monitor.
[2019-10-20] MEDS: NovoLOG Insulin Flexpen SUBQ SCH ×4 (00:19→18:23)
[2019-10-20 04:00] VITALS: BP 155/66
[2019-10-20 05:10] LABS: BASOPHILS % (AUTO) 0.7 % (0.0-2.0); EOSINOPHILS % (AUTO) 7.5 % (0.0-3.0); HEMATOCRIT 31.3 % (42.0-52.0); HEMOGLOBIN 9.3 G/DL (14.2-18.0); LYMPHOCYTES % (AUTO) 18.4 % (20.0-45.0); MEAN CORPUSCULAR VOLUME 78 FL (80-99); MONOCYTES % (AUTO) 9.5 % (1.0-10.0); NEUTROPHILS % (AUTO) 63.9 % (45.0-75.0); PLATELET COUNT 726 K/UL (150-450); RED CELL DISTRIBUTION WIDTH 16.6 % (11.6-14.8); WHITE BLOOD COUNT 17.1 K/UL (4.8-10.8)
[2019-10-20 05:18] LABS: CALCIUM 9.6 MG/DL (8.5-10.1); CREATININE 4.1 MG/DL (0.55-1.30); POTASSIUM 3.3 MMOL/L (3.5-5.1)
--- NOTE | 2019-10-20 07:15 | NUR ---
NURSE HAND-OFF REPORT: Important Events on Shift: No acute distress noted at this time. Patient Status: stable Diet: Nepro at 45cc/hr Pending Orders: n Pending Results/Labs:n Pending MD notification:n Latest Vital Signs: Temperature 98.5 , Pulse 72 , B/P 155 /66 , Respiratory Rate 16 , O2 SAT 99 , Mechanical Ventilator, O2 Flow Rate 15.0 . Vital Sign Comment: [] EKG Rhythm: SR w/BBB Rhythm change?: N MD Notified?: N - MD Response: Latest Delacruz Fall Score: 70 Fall Risk: High Risk Safety Measures: Call light Within Reach, Bed Alarm Zone 1, Side Rails Side Rails x3, Bed position Low and Locked. Fall Precautions: Yellow Socks Report given to TAMICA Anaya.
[2019-10-20 08:00] VITALS: BP 135/61
--- NOTE | 2019-10-20 08:34 | Hematology/Onc Progress Note ---
Assessment/Plan Assessment/Plan Assessment/recs # Anemia due to chronic disease/kidney disease as well, gi bleed + occult + noted --> was on iron in the past, now on hold --> has been started on Epogen sq --> as per renal care --> egd done and shows gastritis --> on ppi --> egd showed gastritis, colo recently done --> hgb 9-->8.7-->7.6-->9.2-->8.9-->9.2->9.3-->8.8->9.9-->9.2-->8.1-->8.7-->7.9- ->8.6-->8.9-->8.2->9-->9.3->8.9-->9.5-->10.6->9.2-->10->8.9-->8.3-->8.9-->9.9--> 9.3-->9-->9.3 --> spep ordered->wnl # Leukocytosis - with multiple infections, VRE UTI, flow is negative --> wbc trend 33-->28-->25->23->22->23->24->17.3-->17-->14->16-->15.6-->14-->14- >13->19->18->17->22->22->19->17-->18->20-->15-->14->16-->14-->17->18-->17->15--> 16-->17 --> on abx, linezolid and zosyn--> zosyn-->gent-->off --> + blood cultures with coag neg staph likely contaminated --> as per id recs --> has ordered a flow cytometry (with pathology) --> does show increased nK cell activity --> JOURDAN 2 and bcr-abl labs ordered (these are send outs)->negative --> plt 585-->613-->649-->669->663-->529-->506-->620-->720 # Elevated ddimer on admission --> duplex lower legs neg for dvt # Respiratory failure --> per pulm, s/p trach --> COVID 19 test negative x 2 # Hyperlipidemia --> statin po # Dysphagia s/p gtube with nepro --> per gi # ESRD with r fem julito --> hd as per renal # Dvt ppx scds Appreciate consultation and dw Rn Subjective Constitutional: Denies: no symptoms, chills, fever, malaise, weakness, other HEENT: Denies: no symptoms, eye pain, blurred vision, tearing, double vision, ear pain, ear discharge, nose pain, nose congestion, throat pain, throat swelling, mouth pain, mouth swelling, other Cardiovascular: Denies: no symptoms, chest pain, edema, irregular heart rate, lightheadedness, palpitations, syncope, other Gastrointestinal/Abdominal: Denies: no symptoms, abdomen distended, abdominal pain, black stools, tarry stools, blood in stool, constipated, diarrhea, difficulty swallowing, nausea, poor appetite, poor fluid intake, rectal bleeding , vomiting, other Genitourinary: Denies: no symptoms, burning, discharge, frequency, flank pain, hematuria, incontinence, pain, urgency, other Neurologic/Psychiatric: Denies: no symptoms, anxiety, depressed, emotional problems, headache, numbness, paresthesia, pre-existing deficit, seizure, tingling, tremors, weakness, other Endocrine: Denies: no symptoms, excessive sweating, flushing, intolerance to cold, intolerance to heat, increased hunger, increased thirst, increased urine, unexplained weight gain, unexplained weight loss, other Hematologic/Lymphatic: Denies: no symptoms, anemia, easy bleeding, easy bruising, adenopathy, other Allergies: Coded Allergies: No Known Allergies (Unverified , 06/10/19) Subjective 08/15 meds noted, no bleeding, hgb 8.8, wbc 28, path flow pending 08/16 flow pending dw pathologist, results pending, wbc 25, hgb 9 08/17 labs reviewed, meds reviewed, meds noted, no night sweats 08/19 remains obtunded, on vent/trach, no bleeding wbc 21.7 08/20 labs have been reviewed, no bleeding, wbc still elev, path reviewed 08/21 labs are noted, no bleeding, on vent, wbc better 08/22 labs noted, no bleeding, meds reviewed, wbc 24 hgb 7.6 08/23 vent, off abx, c diff negative, h/h stable 08/24 labs reviewed, on abx, wbc 17, hgb 8.9, no hemolysis 08/26 reviewed flow and is negative for leukemia, matt rn 08/27 meds reviewed, no night sweats, matt rn, no major bleeding 08/28 meds reivewed, labs noted 08/29 wbc is stable, approx 15, hgb 8.8, no hemolysis 08/30 labs are noted, is for colo today, hgb 9.9 08/31 right fem julito in place, unchanged, hgb 9.2, gi aware 09/01 labs noted, hgb 8.8, plt >600, no bleeding 09/02 labs noted, no bleeding, with elev wbc still, no new changes 09/03 meds are noted, no bleeding, labs reviewed hgb 8.6 09/04 no major events, hd as per renal, abx, no bleeding hgb low 09/05 labs are noted, no bleeding, meds have been reviewed 09/06 no new labs no hemolysis, cbc is noted, no bleeding 09/07 meds reviewed, no bleeding, matt rn, permacath functioning well 09/09 meds reviewed, wbc still elevated, as per id recs, cbc noted 09/10 is obtunded, with gutbe in place, labs reviewed 09/11 obtunded, as per id, observe now off abx, labs noted, wbc 19 09/12 cbc is pending, remains on epogen, also off abx 09/13 labs reviewed, no bleeding, elev wbc, no night sweats 09/14 meds noted, no bleeding, wbc 19, hgb 9.5, no night sweats 09/21 obtunded, remains on vent, labs noted, no bleeding, hgb 8.9 09/22 obtunded, labs noted, no bleeding, on vent, unchanged 09/23 unchanges, wbc remains elevated 20k, on abx, on vent 09/24 labs have been reviewed, no bleeding, wbc 15, may need abx 09/25 formula gtube changed, labs noted, remains obtunded, hgb 9.3 09/26 labs have been reviewed, no bleeding, matt rn, no night sweats 09/27 meds reviewed, no bleeding, wbc 14, on abx, remains obtunded 09/28 remains obtunded, no bleeding, wbc better, hgb 8.9, no hemolysis, plt 506 09/30 on colisitn, wbc elevated, cefepime added per id, hgb stable 10/01 labs reviewed, no bleeding, matt rn, no major events noted, wbc 14, hgb 10.6 10/02 labs have been noted, hgb 9.2, wbc 17, on abx, matt rn 10/03 continue on tube feeds, no bleeding, on vent, wbc remains elevated 10/04 remains ibtunded, is on a mechanical ventilator with tube feeds noted 10/05 labs are noted, hgb 8.6, wbc remains elevated, have ordered for spep 10/07 obtunded on vent, with gtube feeds, labs reviewed, matt rn 10/08 labs are noted, on vent/trach, hgb 10.2, remains obtunded 10/09 labns noted, wbc 15, hgb 8.9, remains altered, on tfs 10/10 labs noted, holding tube feeds, matt rn, hg stable 8. currently 10/11 remains on tfs, supportive care, labs noted, no bleeding 10/12 remains obtunded, hgb 8.9, no hemolysis is seen 10/14 labs reviewed, no bleeding, pending potential hd if rn available 10/15 is on vent, with gtube, labs reviewed, no bleeding, to get hd soon 10/16 remains on vent, matt rn at bedside, wbc 15, abx prn, plt also higher, will monitor 10/17 on vent, continue on tube feeds via gtube, labs improved 10/18 labs noted, remains on vent, and tube feeds, no major changes 10/19 nad, no bleeding, labs reviewed, no night sweats, bp elevated, cards aware Objective Objective Current Medications Medications (Trade) Dose Ordered Sig/Leonel Route PRN Reason Start Time Stop Time Status Last Admin Dose Admin Acetaminophen (Tylenol) 650 mg Q4H PRN GT Mild Pain (Pain Scale 1-3) 09/21/19 12:45 10/21/19 12:44 10/15/19 17:35 Chlorhexidine Gluconate (Felipa-Hex 2%) 1 applic DAILY@2000 TOPIC 09/12/19 20:00 12/11/19 19:59 10/19/19 20:27 Clonidine HCl (Catapres Tab) 0.1 mg Q4H PRN GT For High Blood Pressure 09/09/19 12:30 12/08/19 05:29 09/15/19 04:10 Dextrose (Dextrose 50%) 25 ml Q30M PRN IV Hypoglycemia 08/09/19 07:30 11/07/19 07:29 Dextrose (Dextrose 50%) 50 ml Q30M PRN IV Hypoglycemia 08/09/19 07:30 11/07/19 07:29 Diphenoxylate HCl/ Atropine (Lomotil) 2.5 mg QID PRN ORAL Diarrhea 09/24/19 08:45 10/24/19 08:44 Epoetin Andreas (Epoetin Andreas(ESRD on dialysis)) 10,000 unit WED-WED-WED SUBQ 10/09/19 21:00 01/07/20 20:59 10/18/19 21:14 Famotidine (Pepcid) 20 mg DAILY GT 08/30/19 09:00 11/28/19 08:59 10/19/19 08:10 Heparin Sodium (Porcine) (Heparin Sod 1000 units/ml 10ml) 2,000 unit ONCE PRN IV dialysis 10/20/19 10:30 10/20/19 23:59 Heparin Sodium (Porcine) (Heparin) 1,000 unit POSTHD INJ 10/20/19 10:30 10/20/19 23:59 Insulin Aspart (NovoLOG) Q6HR SUBQ 09/25/19 18:00 11/07/19 11:29 10/20/19 05:17 Lactobacillus Acidophilus (Culturelle) 1 tab EVERY 12 HOURS GT 10/03/19 21:00 12/13/19 17:59 10/19/19 20:27 Loperamide HCl (Imodium) 2 mg Q6H PRN NG Diarrhea 10/15/19 07:45 11/14/19 07:44 Metoprolol Tartrate (Lopressor) 200 mg Q12HR GT 08/09/19 09:00 11/07/19 08:59 10/19/19 20:27 Minoxidil (Loniten) 5 mg DAILY GT 08/09/19 09:00 11/07/19 08:59 10/19/19 08:11 Sodium Chloride 1,000 ml @ 500 mls/hr Q2H PRN IVLG sbp<90 during hd 10/20/19 10:24 10/20/19 23:59 Zinc Oxide (Zinc Oxide) 1 applic EVERY 12 HOURS TOPIC 10/03/19 09:00 11/08/19 17:59 10/19/19 20:27 Last 24 Hour Vital Signs Date Time Temp Pulse Resp B/P (MAP) Pulse Ox O2 Delivery O2 Flow Rate FiO2 10/20/19 07:00 84 14 24 10/20/19 04:00 98.5 75 16 155/66 (95) 99 10/20/19 04:00 Mechanical Ventilator 10/20/19 04:00 24 10/20/19 04:00 72 10/20/19 03:13 76 13 24 10/20/19 00:00 98.5 62 16 151/58 (89) 99 10/20/19 00:00 Mechanical Ventilator 10/20/19 00:00 24 10/20/19 00:00 64 10/19/19 23:14 72 16 24 10/19/19 20:27 74 132/54 10/19/19 20:00 24 10/19/19 20:00 98.6 74 15 132/59 (83) 99 10/19/19 20:00 Mechanical Ventilator 10/19/19 20:00 74 10/19/19 19:31 75 17 24 10/19/19 16:00 24 10/19/19 16:00 Mechanical Ventilator 10/19/19 16:00 98.1 79 15 108/46 (66) 99 10/19/19 16:00 76 10/19/19 14:41 77 16 24 10/19/19 12:00 24 10/19/19 12:00 74 10/19/19 12:00 Mechanical Ventilator 10/19/19 12:00 98.2 79 15 128/64 (85) 99 10/19/19 11:07 72 13 24 10/19/19 08:11 76 148/70 10/19/19 08:11 148/70 10/19/19 08:00 24 10/19/19 08:00 Mechanical Ventilator 10/19/19 08:00 98.1 75 15 138/75 (96) 99 10/19/19 07:42 75 10/19/19 07:06 75 15 24 10/19/19 04:00 Mechanical Ventilator 10/19/19 04:00 24 10/19/19 04:00 98.2 73 15 135/52 (79) 99 10/19/19 03:39 73 10/19/19 03:05 72 16 24 10/19/19 00:00 98.1 70 13 122/54 (76) 99 10/19/19 00:00 68 10/19/19 00:00 Mechanical Ventilator 10/18/19 23:27 68 13 24 10/18/19 20:12 84 122/58 10/18/19 20:00 24 10/18/19 20:00 98.2 83 15 119/57 (77) 98 10/18/19 20:00 Mechanical Ventilator 10/18/19 19:11 86 16 24 10/18/19 19:03 82 10/18/19 16:00 97.9 81 15 103/42 (62) 98 10/18/19 16:00 24 10/18/19 16:00 81 10/18/19 16:00 Mechanical Ventilator 10/18/19 15:00 82 17 24 10/18/19 12:00 97.9 89 15 151/71 (97) 95 10/18/19 12:00 Mechanical Ventilator 10/18/19 12:00 24 10/18/19 11:56 78 20 24 10/18/19 11:32 88 Intake and Output 10/19/19 10/20/19 19:00 07:00 Intake Total 790 ml 695 ml Output Total 100 ml 50 ml Balance 690 ml 645 ml Free Water 250 ml 200 ml Tube Feeding 540 ml 495 ml Stool Total 100 ml 50 ml Labs Test 10/17/19 11:22 10/17/19 16:42 10/18/19 03:15 10/18/19 11:36 POC Whole Blood Glucose 107 MG/DL (74-106) 158 MG/DL (74-106) 124 MG/DL (74-106) White Blood Count 16.3 K/UL (4.8-10.8) Red Blood Count 3.81 M/UL (4.70-6.10) Hemoglobin 9.0 G/DL (14.2-18.0) Hematocrit 29.8 % (42.0-52.0) Mean Corpuscular Volume 78 FL (80-99) Mean Corpuscular Hemoglobin 23.7 PG (27.0-31.0) Mean Corpuscular Hemoglobin Concent 30.3 G/DL (32.0-36.0) Red Cell Distribution Width 16.7 % (11.6-14.8) Platelet Count 746 K/UL (150-450) Mean Platelet Volume 5.6 FL (6.5-10.1) Neutrophils (%) (Auto) 65.7 % (45.0-75.0) Lymphocytes (%) (Auto) 16.2 % (20.0-45.0) Monocytes (%) (Auto) 9.7 % (1.0-10.0) Eosinophils (%) (Auto) 7.1 % (0.0-3.0) Basophils (%) (Auto) 1.3 % (0.0-2.0) Sodium Level 132 MMOL/L (136-145) Potassium Level 3.8 MMOL/L (3.5-5.1) Chloride Level 96 MMOL/L (98-107) Carbon Dioxide Level 26 MMOL/L (21-32) Anion Gap 10 mmol/L (5-15) Blood Urea Nitrogen 100 mg/dL (7-18) Creatinine 4.4 MG/DL (0.55-1.30) Estimat Glomerular Filtration Rate 13.1 mL/min (>60) Glucose Level 172 MG/DL (74-106) Calcium Level 9.3 MG/DL (8.5-10.1) Total Bilirubin 0.4 MG/DL (0.2-1.0) Aspartate Amino Transf (AST/SGOT) 74 U/L (15-37) Alanine Aminotransferase (ALT/SGPT) 73 U/L (12-78) Alkaline Phosphatase 246 U/L (46-116) Total Protein 9.1 G/DL (6.4-8.2) Albumin 2.2 G/DL (3.4-5.0) Globulin 6.9 g/dL Albumin/Globulin Ratio 0.3 (1.0-2.7) Test 10/18/19 16:19 10/19/19 12:48 10/19/19 16:30 10/19/19 23:39 POC Whole Blood Glucose 177 MG/DL (74-106) 189 MG/DL (74-106) 152 MG/DL (74-106) 161 MG/DL (74-106) Test 10/20/19 03:00 10/20/19 05:02 White Blood Count 17.1 K/UL (4.8-10.8) Red Blood Count 4.00 M/UL (4.70-6.10) Hemoglobin 9.3 G/DL (14.2-18.0) Hematocrit 31.3 % (42.0-52.0) Mean Corpuscular Volume 78 FL (80-99) Mean Corpuscular Hemoglobin 23.3 PG (27.0-31.0) Mean Corpuscular Hemoglobin Concent 29.8 G/DL (32.0-36.0) Red Cell Distribution Width 16.6 % (11.6-14.8) Platelet Count 726 K/UL (150-450) Mean Platelet Volume 5.5 FL (6.5-10.1) Neutrophils (%) (Auto) 63.9 % (45.0-75.0) Lymphocytes (%) (Auto) 18.4 % (20.0-45.0) Monocytes (%) (Auto) 9.5 % (1.0-10.0) Eosinophils (%) (Auto) 7.5 % (0.0-3.0) Basophils (%) (Auto) 0.7 % (0.0-2.0) Sodium Level 133 MMOL/L (136-145) Potassium Level 3.3 MMOL/L (3.5-5.1) Chloride Level 99 MMOL/L (98-107) Carbon Dioxide Level 24 MMOL/L (21-32) Anion Gap 10 mmol/L (5-15) Blood Urea Nitrogen 80 mg/dL (7-18) Creatinine 4.1 MG/DL (0.55-1.30) Estimat Glomerular Filtration Rate 14.2 mL/min (>60) Glucose Level 155 MG/DL (74-106) Calcium Level 9.6 MG/DL (8.5-10.1) POC Whole Blood Glucose 162 MG/DL (74-106) Height (Feet): 5 Height (Inches): 10.00 Weight (Pounds): 123 Objective Physical Exam General Appearance: nad, Chronically Ill Head: normocephalic Eyes: right eye PERRL - Will not open left eye ENT: moist mucus membranes Neck: other - submandibular mass R, fairly rigid with resistance to rotation to L, tracheotomy Respiratory: decreased breath sounds, crackles, other - pacemaker, vent+ Cardiovascular: regular rate, rhythm, edema - anasarca Gastrointestinal: non tender, distended, other - G tube Genitourinary: other Musculoskeletal: other - Contractures all extremities Neurologic: sensory intact, motor weakness, responsive Psychiatric: other Skin: Decubitus/Ulcer - Stage III right elbow, stage III left elbow, stage II sacrum, stage III scrotum, warm/dry Fitz Campos MD Oct 20, 2019 08:34
--- NOTE | 2019-10-20 08:34 | General Progress Note ---
Assessment/Plan Assessment/Plan: IMPRESSION: 1. anemia. 2. fevers improved 3. Leukocytosis. 4. hypotension 5. Acute on chronic renal failure. 6. Hyponatremia. 7. Severe protein-calorie malnutrition. 8. Significantly elevated C-reactive protein concerning for infectious etiology. 9. Tracheostomy, G-tube. 10. Ventilator dependence. 11. anasarca 12. Hematuria 13. V pacing 14. hyponatremia 15. transaminitis, HIDA negative PLAN chronic care; unable to place care noted on vent/ no wean monitor labs and optimize ID follow up dialysis ongoing prognosis poor for recovery impression, plan, and exam edited and reviewed in detail care discussed with RN Subjective Allergies: Coded Allergies: No Known Allergies (Unverified , 06/10/19) Subjective remains ill on vent/ no change on HD vitals noted Objective Last 24 Hour Vital Signs Date Time Temp Pulse Resp B/P (MAP) Pulse Ox O2 Delivery O2 Flow Rate FiO2 10/20/19 07:00 84 14 24 10/20/19 04:00 98.5 75 16 155/66 (95) 99 10/20/19 04:00 Mechanical Ventilator 10/20/19 04:00 24 10/20/19 04:00 72 10/20/19 03:13 76 13 24 10/20/19 00:00 98.5 62 16 151/58 (89) 99 10/20/19 00:00 Mechanical Ventilator 10/20/19 00:00 24 10/20/19 00:00 64 10/19/19 23:14 72 16 24 10/19/19 20:27 74 132/54 10/19/19 20:00 24 10/19/19 20:00 98.6 74 15 132/59 (83) 99 10/19/19 20:00 Mechanical Ventilator 10/19/19 20:00 74 10/19/19 19:31 75 17 24 10/19/19 16:00 24 10/19/19 16:00 Mechanical Ventilator 10/19/19 16:00 98.1 79 15 108/46 (66) 99 10/19/19 16:00 76 10/19/19 14:41 77 16 24 10/19/19 12:00 24 10/19/19 12:00 74 10/19/19 12:00 Mechanical Ventilator 10/19/19 12:00 98.2 79 15 128/64 (85) 99 10/19/19 11:07 72 13 24 Intake and Output 10/19/19 10/20/19 19:00 07:00 Intake Total 790 ml 695 ml Output Total 100 ml 50 ml Balance 690 ml 645 ml Free Water 250 ml 200 ml Tube Feeding 540 ml 495 ml Stool Total 100 ml 50 ml Laboratory Tests 10/19/19 12:48: POC Whole Blood Glucose 189H 10/19/19 16:30: POC Whole Blood Glucose 152H 10/19/19 23:39: POC Whole Blood Glucose 161H 10/20/19 03:00: White Blood Count 17.1H, Red Blood Count 4.00L, Hemoglobin 9.3L, Hematocrit 31.3L, Mean Corpuscular Volume 78L, Mean Corpuscular Hemoglobin 23.3L, Mean Corpuscular Hemoglobin Concent 29.8L, Red Cell Distribution Width 16.6H, Platelet Count 726H, Mean Platelet Volume 5.5L, Neutrophils (%) (Auto) 63.9, Lymphocytes (%) (Auto) 18.4L, Monocytes (%) (Auto) 9.5, Eosinophils (%) (Auto) 7.5H, Basophils (%) (Auto) 0.7, Sodium Level 133L, Potassium Level 3.3L, Chloride Level 99, Carbon Dioxide Level 24, Anion Gap 10, Blood Urea Nitrogen 80H, Creatinine 4.1H, Estimat Glomerular Filtration Rate 14.2, Glucose Level 155H, Calcium Level 9.6 10/20/19 05:02: POC Whole Blood Glucose 162H Height (Feet): 5 Height (Inches): 10.00 Weight (Pounds): 123 Objective GENERAL: Ill-appearing male, chronically debilitated. HEENT: Tracheostomy in midline. Questionable fullness in the submandibular region. LUNGS: Coarse breath sounds. reduced breath sounds CARDIAC: S1, S2. Regular rate and rhythm. borderline tachy ABDOMEN: Soft. G-tube. EXTREMITIES: With noted edema. NEUROLOGICAL: Poorly responsive, weak diffusely. Kain Ramirez MD Oct 20, 2019 08:34
[2019-10-20] MEDS: Lactobacillus-GG tablet GT SCH ×2 (09:00→20:14)
[2019-10-20] MEDS: Minoxidil 2.5mg tab GT SCH (09:00)
[2019-10-20] MEDS: Metoprolol Tartrate 100mg tab GT SCH ×2 (09:00→20:14)
[2019-10-20] MEDS: Zinc Oxide Oint 2oz TOPIC SCH ×2 (09:00→20:15)
[2019-10-20] MEDS ORDERED: Heparin 1000 units/ml 1ml Vial INJ SCH (10:30)
[2019-10-20] MEDS ORDERED: Heparin Sod 1000 units/ml 10ml IV PRN (10:30)
--- NOTE | 2019-10-20 10:55 | Infectious Diseases Prog Note ---
"Assessment/Plan Assessment/Plan antibiotics : none A 1. acenitobacter | proteus pneumonia s/p rx 2. respiratory failure 3. leucocytosis 4. COVID 19 test negative x 2 5. renal failure on HD P 1. continue off antibiotics 2. will follow up cultures Subjective ROS Limited/Unobtainable: Yes Allergies: Coded Allergies: No Known Allergies (Unverified , 06/10/19) Objective Last 24 Hour Vital Signs Date Time Temp Pulse Resp B/P (MAP) Pulse Ox O2 Delivery O2 Flow Rate FiO2 10/20/19 10:40 79 13 24 10/20/19 07:00 84 14 24 10/20/19 04:00 98.5 75 16 155/66 (95) 99 10/20/19 04:00 Mechanical Ventilator 10/20/19 04:00 24 10/20/19 04:00 72 10/20/19 03:13 76 13 24 10/20/19 00:00 98.5 62 16 151/58 (89) 99 10/20/19 00:00 Mechanical Ventilator 10/20/19 00:00 24 10/20/19 00:00 64 10/19/19 23:14 72 16 24 10/19/19 20:27 74 132/54 10/19/19 20:00 24 10/19/19 20:00 98.6 74 15 132/59 (83) 99 10/19/19 20:00 Mechanical Ventilator 10/19/19 20:00 74 10/19/19 19:31 75 17 24 10/19/19 16:00 24 10/19/19 16:00 Mechanical Ventilator 10/19/19 16:00 98.1 79 15 108/46 (66) 99 10/19/19 16:00 76 10/19/19 14:41 77 16 24 10/19/19 12:00 24 10/19/19 12:00 74 10/19/19 12:00 Mechanical Ventilator 10/19/19 12:00 98.2 79 15 128/64 (85) 99 10/19/19 11:07 72 13 24 Height (Feet): 5 Height (Inches): 10.00 Weight (Pounds): 123 HEENT: status post trach Respiratory/Chest: lungs clear Cardiovascular: normal rate, regular rhythm, no gallop/murmur Abdomen: soft, non tender, other - GT Extremities: no edema, other - right subclavian Laboratory Tests Test 10/19/19 12:48 10/19/19 16:30 10/19/19 23:39 10/20/19 03:00 POC Whole Blood Glucose 189 MG/DL (74-106) H 152 MG/DL (74-106) H 161 MG/DL (74-106) H White Blood Count 17.1 K/UL (4.8-10.8) H Red Blood Count 4.00 M/UL (4.70-6.10) L Hemoglobin 9.3 G/DL (14.2-18.0) L Hematocrit 31.3 % (42.0-52.0) L Mean Corpuscular Volume 78 FL (80-99) L Mean Corpuscular Hemoglobin 23.3 PG (27.0-31.0) L Mean Corpuscular Hemoglobin Concent 29.8 G/DL (32.0-36.0) L Red Cell Distribution Width 16.6 % (11.6-14.8) H Platelet Count 726 K/UL (150-450) H Mean Platelet Volume 5.5 FL (6.5-10.1) L Neutrophils (%) (Auto) 63.9 % (45.0-75.0) Lymphocytes (%) (Auto) 18.4 % (20.0-45.0) L Monocytes (%) (Auto) 9.5 % (1.0-10.0) Eosinophils (%) (Auto) 7.5 % (0.0-3.0) H Basophils (%) (Auto) 0.7 % (0.0-2.0) Sodium Level 133 MMOL/L (136-145) L Potassium Level 3.3 MMOL/L (3.5-5.1) L Chloride Level 99 MMOL/L (98-107) Carbon Dioxide Level 24 MMOL/L (21-32) Anion Gap 10 mmol/L (5-15) Blood Urea Nitrogen 80 mg/dL (7-18) H Creatinine 4.1 MG/DL (0.55-1.30) H Estimat Glomerular Filtration Rate 14.2 mL/min (>60) Glucose Level 155 MG/DL (74-106) H Calcium Level 9.6 MG/DL (8.5-10.1) Test 10/20/19 05:02 POC Whole Blood Glucose 162 MG/DL (74-106) H Current Medications Medications (Trade) Dose Ordered Sig/Leonel Route PRN Reason Start Time Stop Time Status Last Admin Dose Admin Acetaminophen (Tylenol) 650 mg Q4H PRN GT Mild Pain (Pain Scale 1-3) 09/21/19 12:45 10/21/19 12:44 10/15/19 17:35 Chlorhexidine Gluconate (Felipa-Hex 2%) 1 applic DAILY@2000 TOPIC 09/12/19 20:00 12/11/19 19:59 10/19/19 20:27 Clonidine HCl (Catapres Tab) 0.1 mg Q4H PRN GT For High Blood Pressure 09/09/19 12:30 12/08/19 05:29 09/15/19 04:10 Dextrose (Dextrose 50%) 25 ml Q30M PRN IV Hypoglycemia 08/09/19 07:30 11/07/19 07:29 Dextrose (Dextrose 50%) 50 ml Q30M PRN IV Hypoglycemia 08/09/19 07:30 11/07/19 07:29 Diphenoxylate HCl/ Atropine (Lomotil) 2.5 mg QID PRN ORAL Diarrhea 09/24/19 08:45 10/24/19 08:44 Epoetin Andreas (Epoetin Andreas(ESRD on dialysis)) 10,000 unit WED-WED-WED SUBQ 10/09/19 21:00 01/07/20 20:59 10/18/19 21:14 Famotidine (Pepcid) 20 mg DAILY GT 08/30/19 09:00 11/28/19 08:59 10/19/19 08:10 Heparin Sodium (Porcine) (Heparin Sod 1000 units/ml 10ml) 2,000 unit ONCE PRN IV dialysis 10/20/19 10:30 10/20/19 23:59 Heparin Sodium (Porcine) (Heparin) 1,000 unit POSTHD INJ 10/20/19 10:30 10/20/19 23:59 Insulin Aspart (NovoLOG) Q6HR SUBQ 09/25/19 18:00 11/07/19 11:29 10/20/19 05:17 Lactobacillus Acidophilus (Culturelle) 1 tab EVERY 12 HOURS GT 10/03/19 21:00 12/13/19 17:59 10/19/19 20:27 Loperamide HCl (Imodium) 2 mg Q6H PRN NG Diarrhea 10/15/19 07:45 11/14/19 07:44 Metoprolol Tartrate (Lopressor) 200 mg Q12HR GT 08/09/19 09:00 11/07/19 08:59 10/19/19 20:27 Minoxidil (Loniten) 5 mg DAILY GT 08/09/19 09:00 11/07/19 08:59 10/19/19 08:11 Sodium Chloride 1,000 ml @ 500 mls/hr Q2H PRN IVLG sbp<90 during hd 10/20/19 10:24 10/20/19 23:59 Zinc Oxide (Zinc Oxide) 1 applic EVERY 12 HOURS TOPIC 10/03/19 09:00 11/08/19 17:59 10/19/19 20:27 Farnaz Lyle MD Oct 20, 2019 10:55"
[2019-10-20 12:00] VITALS: BP 140/57
--- NOTE | 2019-10-20 14:49 | Surgery Progress Note ---
Surgery Progress Note Subjective Procedure Performed Right femoral temporary hemodialysis catheter removal Additional Comments no acute events comfortable Objective Last 24 Hour Vital Signs Date Time Temp Pulse Resp B/P (MAP) Pulse Ox O2 Delivery O2 Flow Rate FiO2 10/20/19 12:00 Mechanical Ventilator 10/20/19 12:00 24 10/20/19 10:40 79 13 24 10/20/19 08:00 Mechanical Ventilator 10/20/19 08:00 24 10/20/19 08:00 98.7 76 16 135/61 (85) 100 10/20/19 07:50 79 10/20/19 07:00 84 14 24 10/20/19 04:00 98.5 75 16 155/66 (95) 99 10/20/19 04:00 Mechanical Ventilator 10/20/19 04:00 24 10/20/19 04:00 72 10/20/19 03:13 76 13 24 10/20/19 00:00 98.5 62 16 151/58 (89) 99 10/20/19 00:00 Mechanical Ventilator 10/20/19 00:00 24 10/20/19 00:00 64 10/19/19 23:14 72 16 24 10/19/19 20:27 74 132/54 10/19/19 20:00 24 10/19/19 20:00 98.6 74 15 132/59 (83) 99 10/19/19 20:00 Mechanical Ventilator 10/19/19 20:00 74 10/19/19 19:31 75 17 24 10/19/19 16:00 24 10/19/19 16:00 Mechanical Ventilator 10/19/19 16:00 98.1 79 15 108/46 (66) 99 10/19/19 16:00 76 I&O Intake and Output 10/19/19 10/20/19 19:00 07:00 Intake Total 790 ml 695 ml Output Total 100 ml 50 ml Balance 690 ml 645 ml Free Water 250 ml 200 ml Tube Feeding 540 ml 495 ml Stool Total 100 ml 50 ml Dressing: other Wound: other Cardiovascular: RSR Respiratory: decreased breath sounds Abdomen: soft, non-tender, present bowel sounds Extremities: no tenderness, no cyanosis Laboratory Tests Test 10/19/19 16:30 10/19/19 23:39 10/20/19 03:00 10/20/19 05:02 POC Whole Blood Glucose 152 MG/DL (74-106) H 161 MG/DL (74-106) H 162 MG/DL (74-106) H White Blood Count 17.1 K/UL (4.8-10.8) H Red Blood Count 4.00 M/UL (4.70-6.10) L Hemoglobin 9.3 G/DL (14.2-18.0) L Hematocrit 31.3 % (42.0-52.0) L Mean Corpuscular Volume 78 FL (80-99) L Mean Corpuscular Hemoglobin 23.3 PG (27.0-31.0) L Mean Corpuscular Hemoglobin Concent 29.8 G/DL (32.0-36.0) L Red Cell Distribution Width 16.6 % (11.6-14.8) H Platelet Count 726 K/UL (150-450) H Mean Platelet Volume 5.5 FL (6.5-10.1) L Neutrophils (%) (Auto) 63.9 % (45.0-75.0) Lymphocytes (%) (Auto) 18.4 % (20.0-45.0) L Monocytes (%) (Auto) 9.5 % (1.0-10.0) Eosinophils (%) (Auto) 7.5 % (0.0-3.0) H Basophils (%) (Auto) 0.7 % (0.0-2.0) Sodium Level 133 MMOL/L (136-145) L Potassium Level 3.3 MMOL/L (3.5-5.1) L Chloride Level 99 MMOL/L (98-107) Carbon Dioxide Level 24 MMOL/L (21-32) Anion Gap 10 mmol/L (5-15) Blood Urea Nitrogen 80 mg/dL (7-18) H Creatinine 4.1 MG/DL (0.55-1.30) H Estimat Glomerular Filtration Rate 14.2 mL/min (>60) Glucose Level 155 MG/DL (74-106) H Calcium Level 9.6 MG/DL (8.5-10.1) Plan Problems: (1) Anemia (2) Hyponatremia (3) Leukocytosis Assessment & Plan: Tracheostomy, left chest pacemaker are again demonstrated. There is bilateral interstitial and airspace disease and bilateral pleural fluid again demonstrated. This appears more severe than on the prior study. Bilateral interstitial and airspace infiltrates versus edema. Bilateral pleural effusions Leukocytosis, anemia, tachycardia, abnormal labs. Wound evaluated and likely etiology of patient's sepsis. Leukocytosis etiology work-up antibiotics per infectious disease Appreciate nephrology input transfuse with dialysis We will follow with recommendations thank you allowing participation's care plan HD access temp HD discussed with medical teams line okay HD as per renal persistent leukocytosis flow cyto noted improving trending down right fem line removed wbc fluctuating h/h stable lft's elevated There is a right pleural effusion Gallbladder demonstrates tiny wall adherent nonmobile echogenic foci, some possible mural calcifications, and comet tail artifact in the anterior wall. Patient unable to report sonographic Kent's sign. Common bile duct measures 4 mm in diameter. No intrahepatic biliary ductal dilatation. Liver demonstrates normal echogenicity, no focal abnormality. There is some surface nodularity. Portal vein and hepatic veins are patent. Pancreas is incompletely visualized due to overlying bowel gas, visualized portions are unremarkable. Spleen is unremarkable. Left kidney measures 8.7 cm in length. Right kidney measures 8.9 cm length. Both kidneys demonstrate increased echogenicity. There is no hydronephrosis. No focal abnormality . Abdominal aorta is partially obscured by bowel gas, visualized portions are non-aneurysmal . A gastrostomy is noted Impression: Tiny wall adherent nonmobile gallbladder echogenic foci, may reflect wall adherent calculi, small polyps, and/or pleural calcifications. Anterior wall comet tail artifact suggests foci of adenomyomatosis. Normal caliber common bile duct Possible hepatic surface nodularity, could indicate cirrhotic change Echogenic kidneys, consistent with medical renal disease. No hydronephrosis Right pleural effusion Gastrostomy Note nonvisualization of portions of the pancreas and abdominal aorta HIDA NEGATIVE trend labs (4) Ventilator dependent (5) Right lower lobe pneumonia (6) Hypokalemia (7) Hyperkalemia (8) Anasarca (9) Decubitus skin ulcer Assessment & Plan: pt presented on admission with generalized edemae.Skin assessed under tracheostomy and no areas of concerns noted. GT Insertion is marginally erythematous with small amt slough at stoma. Unstageable Pressure Injury R elbow. Base of wound is 100% yellow slough, Borders are erythematous. Wound oozing small amt haemopurulent exudate.Darker skin tone without elevation in skin temp or erythema periwound. Pt's penis and scrotum are grossly edematous and enlarged and weeping serous exudate from numerous sites both from penis and scrotum. Two small open wounds noted at base of at base of shaft of penis ,and contreras aspect of scrotum. Both wounds oozing large amt sanguineous and serosanguineous exudate. Multiple open wounds with Biofilm at base of each wounds noted to contreras/lateral,inferior and posterior aspects of scrotum. These wounds noted to be oozing moderate amts of serosanguineous exudate. Hypertrophic scar with scattered areas of hyperpigmentation noted to Sacrum. DTPI noted to L Buttocks (L)7cm x (W)9cm. Base of wound is purple and indurated.Darker skin tone without erythema, induration or fluctuance R and L ischial tuberosities. Both heels are boggy with non-blanchable erythema. Tx.Plan: Cleanse wound R elbow with Saline. Apply TheraHoney, Apply Moisture Barrier Paste periwound. Cover with Optifoam drsg.Change Daily and prn. Wash GT site with soap and water.Pat dry. Apply Zinc Oxide Paste to GT site Daily. Leave Open to Air. Apply Zinc Oxide Paste to entire Scrotum, Place ABD pads to R and L lateral, and posterior aspects of scrotum TWICE daily. Apply Cavilon Skin Barrier to malleoli and both Heels. Cover each site with Optifoam drsgs. Change every 7 days and prn. Reposition at least every 2hours or as tolerated. Off-load heels with Pillows. APM/BECCA Mattress overlay. (10) Malnutrition Assessment & Plan: DAILY ESTIMATED NEEDS: Needs based on Renal, critical care, wound/ 61kg 22-30 kcals/kg 5293-5846 total kcals 1.25-2 g protein/kg 76-122 g total protein Fluid per MD, now on HD NUTRITION DIAGNOSIS: * Swallowing difficulty R/T respiratory failure, dysphagia as evidenced by trach/vent dep, PEG dep * Increased kcal/prot needs R/T wound healing as evidenced by admitted w/ multiple pressure injuries including full thickness wounds at junction of Shaft of penis, dorsal scrotum, R elbow, and DTPI @ L buttocks. CURRENT TF:Osmolite 1.2 @ 60ml/hr x 20 hrs + Garo BID ENTERAL NUTRITION RECOMMENDATIONS: Vital AF 1.2 @ 60ml/hr x 20 hrs to provide 1200ml, 1440kcal, 90g prot, 973ml free water * Rec 20 hr run time for GI rest. -> W/ improved GI status, rec Vital AF 1.2, an elemental and carb controlled TF -> monitor lytes and renal fxn closely, monitor need for renal TF -> TF @ goal will provide 1642mg K and 2025mg Phos -> HOB over 30 degrees/ water flush per MD -------- Trial of Osmolite 1.2 continue for now- Goal of 60ml/hr for 20 hrs (4 hrs bowel rest) to provide 1200ml, 1440 kcal, 67g pro, 984ml free H2O, -> Rec to add prosource 1 pack daily (11g pro) to better meet est pro needs. -> Monitor BG, K closely. Pt would require increased insulin coverage as TF at goal would provide 56g more carbs per day. ADDITIONAL RECOMMENDATIONS: * Per SNF: HT=63" LE=474 lbs (vs EMR wt of 166lbs) -> obtain re-calibrated bedscale wt, rec daily wt monitoring * Wound healing: con't Nephrovite + Garo BID/ Vit C dosing per Nephro * Monitor renal fxn and lytes closely w/ non-renal TF ->K low, phos wnl;updated mag level; rec increased insulin w/ BG labs * Daily wts w/ drop to 118-20 lbs, rec to recalibrate for accurate CBW * Consider DC Miralax if medically appropriate: +rectal tube (11) Uremia (12) CKD (chronic kidney disease) stage 5, GFR less than 15 ml/min (13) Colon distention Assessment & Plan: discussed with GI likely functional as having lots of loose bm rectal tube kub f/u s/p colonoscopy - findings reviewed with GI improved cont diet as tolerated Marked distention of the sigmoid colon. 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 No evidence of bowel wall thickening or pneumatosis 12 mm focus of contrast enhancement in the right pectineus muscle. While nonspecific in appearance, appearance raises concern for a possible pseudoaneurysm. Ill- defined thickening of the pectus medius muscle could indicate some intramuscular hemorrhage. The above findings were phoned to Dr. Urias at the time of interpretation Large bilateral pleural effusions Hazy pulmonary parenchymal opacities as well as dense consolidative opacities most likely represent pulmonary edema, but could represent pneumonia Evidence of anasarca elsewhere, with generalized edema of the subcutaneous fat Bladder wall thickening, raises concern for cystitis. Avalos catheter in place Colonic diverticulosis. No evidence of diverticulitis. Tracheostomy Pacemaker Gastrostomy Gastrostomy again demonstrated in satisfactory position. The stomach is otherwise unremarkable. The distal esophagus and duodenum are unremarkable. Ingested contrast reaches the colon. No small bowel distention or small bowel wall thickening. Interim placement of a rectal tube. There are a few colonic diverticula. No definite evidence of acute diverticulitis. The appendix is prominent in caliber, as previously No free or loculated intraperitoneal gas or fluid is evident. Again demonstrated is marked gaseous distention of the sigmoid colon which measures up to 12.6 cm in diameter, with the proximal aspect located laterally to the distal aspect, and caliber transition in the mesenteric root of both entry points. However, there is stool within the proximal portion which appears to be at least partially contrast opacified, and no definite persisting of the vascular pedicle demonstrated. The liver, gallbladder, bile ducts, pancreas, spleen, adrenals, kidneys are unremarkable. There are accessory splenules demonstrated. No retroperitoneal or mesenteric mass or adenopathy. No pelvic mass or adenopathy. The prostate is enlarged and protrudes into the inferior bladder. The bladder is thick-walled. Previously demonstrated Avalos catheter has been removed. Again demonstrated is a large right pleural effusion and a moderate to large left pleural effusion. Again demonstrated are compressive atelectatic changes of significant portions of both lower lobes. Pacemaker wires are seen within the heart. Previously demonstrated high attenuation focus within the right pectineus muscle is not evident. However, there is a low-attenuation area which measures 2 cm diameter centrally which is not evident previously. There is diffuse edema of the subcutaneous fat. This is less severe than was demonstrated previously. There are degenerative proliferative changes of the lumbar spine. Impression: Abnormal configuration of the sigmoid colon, with marked distention of a sigmoid, inversion of the relationships of the proximal and descending colon, and evidence of immediately apposed transition point raises concern for sigmoid volvulus. However, similarity to the prior exam, presence of what appears to be contrast opacified stool within the dilated segment, and lack of evidence of twisting of the vascular pedicle raises the possibility that this is baseline for this patient or possibly dysfunctional in nature. Correlate with clinical findings Enlarged prostate with protrusion into the bladder floor. Bladder neoplasm not completely excludable as a result Thick-walled bladder, may indicate cystitis or be due to chronic bladder lumen obstruction related to the above Abnormalities right pectineus muscle, with a 2 cm central low attenuation area. Note that previous exam have a high attenuation focus suspicious for a small pseudoaneurysm. 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 Colonic diverticulosis. No evidence of diverticulitis Gastrostomy in good position Rectal tube in good position Large right and moderate to large left pleural effusions. Resultant compressive pulmonary atelectatic changes or graft edema subcutaneous fat, less severe than was demonstrated on prior 08/17/2019 exam. Jonathan Urias Oct 20, 2019 14:49
--- NOTE | 2019-10-20 14:59 | NUR ---
CASE MANAGEMENT: REVIEW 10/20/2019 SI:SEPSIS. PNA. VS: T 98.7 HR 76 RR 16 B/P 135/61 SATS 1005 ON MECH VENT FIO2 24 LABS: WBC 17.1 NA 133 K 3.3 BUN 80 CR 4.1 GLU 155 IS:LONITEN GT QD PEPCID GT QD LOPRESSOR GT Q12H INSULIN ASPART SUBQ Q6H SDU PLAN OF CARE: HD TODAY chronic care; unable to place
--- NOTE | 2019-10-20 15:06 | NUR ---
DISCHARGE PLANNING: NOTE CALL PLACED TO DORIS SALEEM AT [facility] FOR AN UPDATE. UNABLE TO REACH AT THIS TIME.
--- NOTE | 2019-10-20 15:48 | Nephrology Progress Note ---
Assessment/Plan Plan MOF ESRD - HD now MWF Anemia of CKD -TUYET. Subjective Subjective Obtunded Objective Objective Last 24 Hour Vital Signs Date Time Temp Pulse Resp B/P (MAP) Pulse Ox O2 Delivery O2 Flow Rate FiO2 10/20/19 15:10 99 17 24 10/20/19 12:00 Mechanical Ventilator 10/20/19 12:00 24 10/20/19 10:40 79 13 24 10/20/19 08:00 Mechanical Ventilator 10/20/19 08:00 24 10/20/19 08:00 98.7 76 16 135/61 (85) 100 10/20/19 07:50 79 10/20/19 07:00 84 14 24 10/20/19 04:00 98.5 75 16 155/66 (95) 99 10/20/19 04:00 Mechanical Ventilator 10/20/19 04:00 24 10/20/19 04:00 72 10/20/19 03:13 76 13 24 10/20/19 00:00 98.5 62 16 151/58 (89) 99 10/20/19 00:00 Mechanical Ventilator 10/20/19 00:00 24 10/20/19 00:00 64 10/19/19 23:14 72 16 24 10/19/19 20:27 74 132/54 10/19/19 20:00 24 10/19/19 20:00 98.6 74 15 132/59 (83) 99 10/19/19 20:00 Mechanical Ventilator 10/19/19 20:00 74 10/19/19 19:31 75 17 24 10/19/19 16:00 24 10/19/19 16:00 Mechanical Ventilator 10/19/19 16:00 98.1 79 15 108/46 (66) 99 10/19/19 16:00 76 Intake and Output 10/19/19 10/20/19 19:00 07:00 Intake Total 790 ml 695 ml Output Total 100 ml 50 ml Balance 690 ml 645 ml Free Water 250 ml 200 ml Tube Feeding 540 ml 495 ml Stool Total 100 ml 50 ml Laboratory Tests 10/19/19 16:30: POC Whole Blood Glucose 152H 10/19/19 23:39: POC Whole Blood Glucose 161H 10/20/19 03:00: White Blood Count 17.1H, Red Blood Count 4.00L, Hemoglobin 9.3L, Hematocrit 31.3L, Mean Corpuscular Volume 78L, Mean Corpuscular Hemoglobin 23.3L, Mean Corpuscular Hemoglobin Concent 29.8L, Red Cell Distribution Width 16.6H, Platelet Count 726H, Mean Platelet Volume 5.5L, Neutrophils (%) (Auto) 63.9, Lymphocytes (%) (Auto) 18.4L, Monocytes (%) (Auto) 9.5, Eosinophils (%) (Auto) 7.5H, Basophils (%) (Auto) 0.7, Sodium Level 133L, Potassium Level 3.3L, Chloride Level 99, Carbon Dioxide Level 24, Anion Gap 10, Blood Urea Nitrogen 80H, Creatinine 4.1H, Estimat Glomerular Filtration Rate 14.2, Glucose Level 155H, Calcium Level 9.6 10/20/19 05:02: POC Whole Blood Glucose 162H Height (Feet): 5 Height (Inches): 10.00 Weight (Pounds): 123 Objective CV RR Trach clean Lungs CTA Perma Cath RIJ. Abd SNT. BS + E No CCE Erica Pichardo MD Oct 20, 2019 15:48
[2019-10-20 16:00] VITALS: BP 119/51
--- NOTE | 2019-10-20 19:50 | NUR ---
NURSE NOTES: Report received from [facility]. Observed pt lying in the bed, obtunded. Vpaced. Trach to vent, Portex 8, AC 12, TV 550, FIO2 24%, PEEP 5. GT intact, running Nepro at 45cc/hr, no residual, flushing well at this time. IV on L FA 24G, SL. Rectal tube noted and draining. Bed in the lowest position. Side rails up x3. Will continue to monitor.
[2019-10-20 20:00] VITALS: BP 90/45
[2019-10-20] MEDS: Dyna-Hex 2% Top Sol 2oz TOPIC SCH (20:14)
[2019-10-20] MEDS: Epoetin Alfa-EPBX(ESRD on dialysis)10,000 unit/ml vial SUBQ SCH (20:14)
--- NOTE | 2019-10-20 22:20 | General Progress Note ---
Assessment/Plan Assessment/Plan: Assessment - abdominal distention, due to colonic dysmotility, - colonoscopy negative to hepatic flexure - diarrhea - presumed TF related - abnormal LFT - ? etiology --> HIDA negative and CT negative - Anemia - leukocytosis - stool OB (+) - EGD --> gastritis - Renal failure - Anasarca - resp failure, trach - b/l pleural effusions - dysphagia, GT - encephalopathy, contracted - poor px Recommendations - continue TF - Off of Statin - LFT better - ? thoracentesis - rectal tube - roll side to side as feasible (hard due to severe contractions) - Elevate HOB - f/u labs - PPI - abx - supportive care Subjective Allergies: Coded Allergies: No Known Allergies (Unverified , 06/10/19) Subjective above noted NAD on TF Objective Last 24 Hour Vital Signs Date Time Temp Pulse Resp B/P (MAP) Pulse Ox O2 Delivery O2 Flow Rate FiO2 10/20/19 20:14 105 98/58 10/20/19 20:00 24 10/20/19 20:00 97 10/20/19 20:00 Mechanical Ventilator 10/20/19 20:00 98.6 107 16 90/45 (60) 100 10/20/19 19:00 94 13 24 10/20/19 16:00 Mechanical Ventilator 10/20/19 16:00 99 10/20/19 16:00 24 10/20/19 16:00 98.2 100 17 119/51 (73) 100 10/20/19 15:10 99 17 24 10/20/19 12:00 98.6 89 16 140/57 (84) 100 10/20/19 12:00 Mechanical Ventilator 10/20/19 12:00 24 10/20/19 11:47 95 10/20/19 10:40 79 13 24 10/20/19 08:00 Mechanical Ventilator 10/20/19 08:00 24 10/20/19 08:00 98.7 76 16 135/61 (85) 100 10/20/19 07:50 79 10/20/19 07:00 84 14 24 10/20/19 04:00 98.5 75 16 155/66 (95) 99 10/20/19 04:00 Mechanical Ventilator 10/20/19 04:00 24 10/20/19 04:00 72 10/20/19 03:13 76 13 24 10/20/19 00:00 98.5 62 16 151/58 (89) 99 10/20/19 00:00 Mechanical Ventilator 10/20/19 00:00 24 10/20/19 00:00 64 10/19/19 23:14 72 16 24 Intake and Output 10/19/19 10/20/19 19:00 07:00 Intake Total 790 ml 695 ml Output Total 100 ml 50 ml Balance 690 ml 645 ml Free Water 250 ml 200 ml Tube Feeding 540 ml 495 ml Stool Total 100 ml 50 ml Laboratory Tests 10/19/19 23:39: POC Whole Blood Glucose 161H 10/20/19 03:00: White Blood Count 17.1H, Red Blood Count 4.00L, Hemoglobin 9.3L, Hematocrit 31.3L, Mean Corpuscular Volume 78L, Mean Corpuscular Hemoglobin 23.3L, Mean Corpuscular Hemoglobin Concent 29.8L, Red Cell Distribution Width 16.6H, Platelet Count 726H, Mean Platelet Volume 5.5L, Neutrophils (%) (Auto) 63.9, Lymphocytes (%) (Auto) 18.4L, Monocytes (%) (Auto) 9.5, Eosinophils (%) (Auto) 7.5H, Basophils (%) (Auto) 0.7, Sodium Level 133L, Potassium Level 3.3L, Chloride Level 99, Carbon Dioxide Level 24, Anion Gap 10, Blood Urea Nitrogen 80H, Creatinine 4.1H, Estimat Glomerular Filtration Rate 14.2, Glucose Level 155H, Calcium Level 9.6 10/20/19 05:02: POC Whole Blood Glucose 162H Height (Feet): 5 Height (Inches): 10.00 Weight (Pounds): 123 Objective Debilitated AA man NCAT (+) trach coarse BS RR abd less distended, anasarca, (+) GT, (+) rectal tube ext contracted Ronny Mustafa MD Oct 20, 2019 22:20
[2019-10-21] VITALS: BP 94/47
[2019-10-21] MEDS: NovoLOG Insulin Flexpen SUBQ SCH ×4 (00:04→18:11)
--- NOTE | 2019-10-21 00:32 | NUR ---
NURSE NOTES: pt sleeping in the bed, arousable. Noted BP of 95/50, HR 110 noted. Reposition done. Oral care given. Will continue to monitor.
[2019-10-21 04:00] VITALS: BP 137/57
--- NOTE | 2019-10-21 07:20 | NUR ---
NURSE HAND-OFF REPORT: Important Events on Shift: BP at 1900 90/45-> 135/57 at 0400 Patient Status: stable Diet: Nepro at 40cc/hr. (07-18 held) Pending Orders: n Pending Results/Labs: n Pending MD notification:n Latest Vital Signs: Temperature 99.7 , Pulse 97 , B/P 137 /57 , Respiratory Rate 16 , O2 SAT 100 , Mechanical Ventilator, O2 Flow Rate 15.0 . Vital Sign Comment: [] EKG Rhythm: V-Paced Rhythm change?: N MD Notified?: N - MD Response: Latest Delacruz Fall Score: 70 Fall Risk: High Risk Safety Measures: Call light Within Reach, Bed Alarm Zone 1, Side Rails Side Rails x3, Bed position Low and Locked. Fall Precautions: Yellow Socks Report given to Alyssa Bills RN
--- NOTE | 2019-10-21 07:42 | NUR ---
NURSE NOTES: Recieved pt from [facility]. Pt in bed, obtunded, non-verbal. No sign of distress. On mech. vent with setting of AC12/VT550/Fi O2 at 24%/P5. No grimacing noted. HOB elevated at all times. On GTF Nephro 45cc/hr. Tolerating well. No n/v noted. Rectal tube in placed patent/intact draining brownish liquid stool. IV at left FA #20g. in placed patent/intact SL. Right upper subclavian in placed. No s/sx of bleeding at the site. Bed in low position, locked. Call light within reach. Will cont. to monitor.
[2019-10-21 08:00] VITALS: BP 131/60
[2019-10-21] MEDS: Minoxidil 2.5mg tab GT SCH (09:11)
[2019-10-21] MEDS: Lactobacillus-GG tablet GT SCH ×2 (09:12→19:59)
[2019-10-21] MEDS: Zinc Oxide Oint 2oz TOPIC SCH ×2 (09:12→20:00)
[2019-10-21] MEDS: Metoprolol Tartrate 100mg tab GT SCH ×2 (09:12→20:00)
[2019-10-21 12:00] VITALS: BP 111/58
--- NOTE | 2019-10-21 12:23 | Surgery Progress Note ---
Surgery Progress Note Subjective Procedure Performed Right femoral temporary hemodialysis catheter removal Additional Comments no acute events comfortable stable exam unchanged on support Objective Last 24 Hour Vital Signs Date Time Temp Pulse Resp B/P (MAP) Pulse Ox O2 Delivery O2 Flow Rate FiO2 10/21/19 09:12 100 131/60 10/21/19 09:11 131/60 10/21/19 08:00 Mechanical Ventilator 10/21/19 08:00 24 10/21/19 08:00 101 10/21/19 08:00 99.5 100 14 131/60 (83) 100 10/21/19 07:15 101 15 24 10/21/19 04:00 Mechanical Ventilator 10/21/19 04:00 99.7 97 16 137/57 (83) 100 10/21/19 04:00 24 10/21/19 04:00 91 10/21/19 02:58 104 18 24 10/21/19 00:00 98.4 103 13 94/47 (63) 100 10/21/19 00:00 103 10/21/19 00:00 Mechanical Ventilator 10/21/19 00:00 24 10/20/19 22:54 88 19 24 10/20/19 20:14 105 98/58 10/20/19 20:00 24 10/20/19 20:00 97 10/20/19 20:00 Mechanical Ventilator 10/20/19 20:00 98.6 107 16 90/45 (60) 100 10/20/19 19:00 94 13 24 10/20/19 16:00 Mechanical Ventilator 10/20/19 16:00 99 10/20/19 16:00 24 10/20/19 16:00 98.2 100 17 119/51 (73) 100 10/20/19 15:10 99 17 24 I&O Intake and Output 10/20/19 10/21/19 19:00 07:00 Intake Total 45 ml 645 ml Output Total 2000 ml 100 ml Balance -1955 ml 545 ml Free Water 150 ml Tube Feeding 45 ml 495 ml Stool Total 100 ml Hemodialysis UF 2000 ml Dressing: other Wound: other Cardiovascular: RSR Respiratory: decreased breath sounds Abdomen: soft, non-tender, present bowel sounds Extremities: no tenderness, no cyanosis Laboratory Tests Test 10/21/19 00:02 10/21/19 05:22 10/21/19 12:02 POC Whole Blood Glucose 192 MG/DL (74-106) H 188 MG/DL (74-106) H 161 MG/DL (74-106) H Plan Problems: (1) Anemia (2) Hyponatremia (3) Leukocytosis Assessment & Plan: Tracheostomy, left chest pacemaker are again demonstrated. There is bilateral interstitial and airspace disease and bilateral pleural fluid again demonstrated. This appears more severe than on the prior study. Bilateral interstitial and airspace infiltrates versus edema. Bilateral pleural effusions Leukocytosis, anemia, tachycardia, abnormal labs. Wound evaluated and likely etiology of patient's sepsis. Leukocytosis etiology work-up antibiotics per infectious disease Appreciate nephrology input transfuse with dialysis We will follow with recommendations thank you allowing participation's care plan HD access temp HD discussed with medical teams line okay HD as per renal persistent leukocytosis flow cyto noted improving trending down right fem line removed wbc fluctuating h/h stable lft's elevated There is a right pleural effusion Gallbladder demonstrates tiny wall adherent nonmobile echogenic foci, some possible mural calcifications, and comet tail artifact in the anterior wall. Patient unable to report sonographic Kent's sign. Common bile duct measures 4 mm in diameter. No intrahepatic biliary ductal dilatation. Liver demonstrates normal echogenicity, no focal abnormality. There is some surface nodularity. Portal vein and hepatic veins are patent. Pancreas is incompletely visualized due to overlying bowel gas, visualized portions are unremarkable. Spleen is unremarkable. Left kidney measures 8.7 cm in length. Right kidney measures 8.9 cm length. Both kidneys demonstrate increased echogenicity. There is no hydronephrosis. No focal abnormality . Abdominal aorta is partially obscured by bowel gas, visualized portions are non-aneurysmal . A gastrostomy is noted Impression: Tiny wall adherent nonmobile gallbladder echogenic foci, may reflect wall adherent calculi, small polyps, and/or pleural calcifications. Anterior wall comet tail artifact suggests foci of adenomyomatosis. Normal caliber common bile duct Possible hepatic surface nodularity, could indicate cirrhotic change Echogenic kidneys, consistent with medical renal disease. No hydronephrosis Right pleural effusion Gastrostomy Note nonvisualization of portions of the pancreas and abdominal aorta HIDA NEGATIVE trend labs (4) Ventilator dependent (5) Right lower lobe pneumonia (6) Hypokalemia (7) Hyperkalemia (8) Anasarca (9) Decubitus skin ulcer Assessment & Plan: pt presented on admission with generalized edemae.Skin assessed under tracheostomy and no areas of concerns noted. GT Insertion is marginally erythematous with small amt slough at stoma. Unstageable Pressure Injury R elbow. Base of wound is 100% yellow slough, Borders are erythematous. Wound oozing small amt haemopurulent exudate.Darker skin tone without elevation in skin temp or erythema periwound. Pt's penis and scrotum are grossly edematous and enlarged and weeping serous exudate from numerous sites both from penis and scrotum. Two small open wounds noted at base of at base of shaft of penis ,and contreras aspect of scrotum. Both wounds oozing large amt sanguineous and serosanguineous exudate. Multiple open wounds with Biofilm at base of each wounds noted to contreras/lateral,inferior and posterior aspects of scrotum. These wounds noted to be oozing moderate amts of serosanguineous exudate. Hypertrophic scar with scattered areas of hyperpigmentation noted to Sacrum. DTPI noted to L Buttocks (L)7cm x (W)9cm. Base of wound is purple and indurated.Darker skin tone without erythema, induration or fluctuance R and L ischial tuberosities. Both heels are boggy with non-blanchable erythema. Tx.Plan: Cleanse wound R elbow with Saline. Apply TheraHoney, Apply Moisture Barrier Paste periwound. Cover with Optifoam drsg.Change Daily and prn. Wash GT site with soap and water.Pat dry. Apply Zinc Oxide Paste to GT site Daily. Leave Open to Air. Apply Zinc Oxide Paste to entire Scrotum, Place ABD pads to R and L lateral, and posterior aspects of scrotum TWICE daily. Apply Cavilon Skin Barrier to malleoli and both Heels. Cover each site with Optifoam drsgs. Change every 7 days and prn. Reposition at least every 2hours or as tolerated. Off-load heels with Pillows. APM/BECCA Mattress overlay. (10) Malnutrition Assessment & Plan: DAILY ESTIMATED NEEDS: Needs based on Renal, critical care, wound/ 61kg 22-30 kcals/kg 4490-1374 total kcals 1.25-2 g protein/kg 76-122 g total protein Fluid per MD, now on HD NUTRITION DIAGNOSIS: * Swallowing difficulty R/T respiratory failure, dysphagia as evidenced by trach/vent dep, PEG dep * Increased kcal/prot needs R/T wound healing as evidenced by admitted w/ multiple pressure injuries including full thickness wounds at junction of Shaft of penis, dorsal scrotum, R elbow, and DTPI @ L buttocks. CURRENT TF:Osmolite 1.2 @ 60ml/hr x 20 hrs + Garo BID ENTERAL NUTRITION RECOMMENDATIONS: Vital AF 1.2 @ 60ml/hr x 20 hrs to provide 1200ml, 1440kcal, 90g prot, 973ml free water * Rec 20 hr run time for GI rest. -> W/ improved GI status, rec Vital AF 1.2, an elemental and carb controlled TF -> monitor lytes and renal fxn closely, monitor need for renal TF -> TF @ goal will provide 1642mg K and 2025mg Phos -> HOB over 30 degrees/ water flush per MD -------- Trial of Osmolite 1.2 continue for now- Goal of 60ml/hr for 20 hrs (4 hrs bowel rest) to provide 1200ml, 1440 kcal, 67g pro, 984ml free H2O, -> Rec to add prosource 1 pack daily (11g pro) to better meet est pro needs. -> Monitor BG, K closely. Pt would require increased insulin coverage as TF at goal would provide 56g more carbs per day. ADDITIONAL RECOMMENDATIONS: * Per SNF: HT=63" SV=511 lbs (vs EMR wt of 166lbs) -> obtain re-calibrated bedscale wt, rec daily wt monitoring * Wound healing: con't Nephrovite + Garo BID/ Vit C dosing per Nephro * Monitor renal fxn and lytes closely w/ non-renal TF ->K low, phos wnl;updated mag level; rec increased insulin w/ BG labs * Daily wts w/ drop to 118-20 lbs, rec to recalibrate for accurate CBW * Consider DC Miralax if medically appropriate: +rectal tube (11) Uremia (12) CKD (chronic kidney disease) stage 5, GFR less than 15 ml/min (13) Colon distention Assessment & Plan: discussed with GI likely functional as having lots of loose bm rectal tube kub f/u s/p colonoscopy - findings reviewed with GI improved cont diet as tolerated Marked distention of the sigmoid colon. 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 No evidence of bowel wall thickening or pneumatosis 12 mm focus of contrast enhancement in the right pectineus muscle. While nonspecific in appearance, appearance raises concern for a possible pseudoaneurysm. Ill- defined thickening of the pectus medius muscle could indicate some intramuscular hemorrhage. The above findings were phoned to Dr. Urias at the time of interpretation Large bilateral pleural effusions Hazy pulmonary parenchymal opacities as well as dense consolidative opacities most likely represent pulmonary edema, but could represent pneumonia Evidence of anasarca elsewhere, with generalized edema of the subcutaneous fat Bladder wall thickening, raises concern for cystitis. Avalos catheter in place Colonic diverticulosis. No evidence of diverticulitis. Tracheostomy Pacemaker Gastrostomy Gastrostomy again demonstrated in satisfactory position. The stomach is otherwise unremarkable. The distal esophagus and duodenum are unremarkable. Ingested contrast reaches the colon. No small bowel distention or small bowel wall thickening. Interim placement of a rectal tube. There are a few colonic diverticula. No definite evidence of acute diverticulitis. The appendix is prominent in caliber, as previously No free or loculated intraperitoneal gas or fluid is evident. Again demonstrated is marked gaseous distention of the sigmoid colon which measures up to 12.6 cm in diameter, with the proximal aspect located laterally to the distal aspect, and caliber transition in the mesenteric root of both entry points. However, there is stool within the proximal portion which appears to be at least partially contrast opacified, and no definite persisting of the vascular pedicle demonstrated. The liver, gallbladder, bile ducts, pancreas, spleen, adrenals, kidneys are unremarkable. There are accessory splenules demonstrated. No retroperitoneal or mesenteric mass or adenopathy. No pelvic mass or adenopathy. The prostate is enlarged and protrudes into the inferior bladder. The bladder is thick-walled. Previously demonstrated Avalos catheter has been removed. Again demonstrated is a large right pleural effusion and a moderate to large left pleural effusion. Again demonstrated are compressive atelectatic changes of significant portions of both lower lobes. Pacemaker wires are seen within the heart. Previously demonstrated high attenuation focus within the right pectineus muscle is not evident. However, there is a low-attenuation area which measures 2 cm diameter centrally which is not evident previously. There is diffuse edema of the subcutaneous fat. This is less severe than was demonstrated previously. There are degenerative proliferative changes of the lumbar spine. Impression: Abnormal configuration of the sigmoid colon, with marked distention of a sigmoid, inversion of the relationships of the proximal and descending colon, and evidence of immediately apposed transition point raises concern for sigmoid volvulus. However, similarity to the prior exam, presence of what appears to be contrast opacified stool within the dilated segment, and lack of evidence of twisting of the vascular pedicle raises the possibility that this is baseline for this patient or possibly dysfunctional in nature. Correlate with clinical findings Enlarged prostate with protrusion into the bladder floor. Bladder neoplasm not completely excludable as a result Thick-walled bladder, may indicate cystitis or be due to chronic bladder lumen obstruction related to the above Abnormalities right pectineus muscle, with a 2 cm central low attenuation area. Note that previous exam have a high attenuation focus suspicious for a small pseudoaneurysm. 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 Colonic diverticulosis. No evidence of diverticulitis Gastrostomy in good position Rectal tube in good position Large right and moderate to large left pleural effusions. Resultant compressive pulmonary atelectatic changes or graft edema subcutaneous fat, less severe than was demonstrated on prior 08/17/2019 exam. Jonathan Urias Oct 21, 2019 12:23
--- NOTE | 2019-10-21 12:55 | Nephrology Progress Note ---
Assessment/Plan Problem List: (1) UTI (urinary tract infection) (2) VRE (vancomycin-resistant Enterococci) infection (3) Hyponatremia (4) CKD (chronic kidney disease) stage 5, GFR less than 15 ml/min (5) Malnutrition (6) Anasarca (7) Decubitus skin ulcer (8) Anemia (9) Ventilator dependent (10) Right lower lobe pneumonia Plan dialysis stable, cont pulm care HD TTS Subjective ROS Limited/Unobtainable: Yes Objective Objective Last 24 Hour Vital Signs Date Time Temp Pulse Resp B/P (MAP) Pulse Ox O2 Delivery O2 Flow Rate FiO2 10/21/19 09:12 100 131/60 10/21/19 09:11 131/60 10/21/19 08:00 Mechanical Ventilator 10/21/19 08:00 24 10/21/19 08:00 101 10/21/19 08:00 99.5 100 14 131/60 (83) 100 10/21/19 07:15 101 15 24 10/21/19 04:00 Mechanical Ventilator 10/21/19 04:00 99.7 97 16 137/57 (83) 100 10/21/19 04:00 24 10/21/19 04:00 91 10/21/19 02:58 104 18 24 10/21/19 00:00 98.4 103 13 94/47 (63) 100 10/21/19 00:00 103 10/21/19 00:00 Mechanical Ventilator 10/21/19 00:00 24 10/20/19 22:54 88 19 24 10/20/19 20:14 105 98/58 10/20/19 20:00 24 10/20/19 20:00 97 10/20/19 20:00 Mechanical Ventilator 10/20/19 20:00 98.6 107 16 90/45 (60) 100 10/20/19 19:00 94 13 24 10/20/19 16:00 Mechanical Ventilator 10/20/19 16:00 99 10/20/19 16:00 24 10/20/19 16:00 98.2 100 17 119/51 (73) 100 10/20/19 15:10 99 17 24 Intake and Output 10/20/19 10/21/19 19:00 07:00 Intake Total 45 ml 645 ml Output Total 2000 ml 100 ml Balance -1955 ml 545 ml Free Water 150 ml Tube Feeding 45 ml 495 ml Stool Total 100 ml Hemodialysis UF 2000 ml Laboratory Tests 10/21/19 00:02: POC Whole Blood Glucose 192H 10/21/19 05:22: POC Whole Blood Glucose 188H 10/21/19 12:02: POC Whole Blood Glucose 161H Height (Feet): 5 Height (Inches): 10.00 Weight (Pounds): 123 General Appearance: lethargic, cachetic Cardiovascular: regular rhythm Respiratory/Chest: crackles/rales Abdomen: non tender Extremities: no edema Neurologic: unresponsive Carmelo Frank MD Oct 21, 2019 12:55
--- NOTE | 2019-10-21 13:39 | General Progress Note ---
Assessment/Plan Assessment/Plan: IMPRESSION: 1. anemia. 2. fevers improved 3. Leukocytosis. 4. hypotension 5. Acute on chronic renal failure. 6. Hyponatremia. 7. Severe protein-calorie malnutrition. 8. Significantly elevated C-reactive protein concerning for infectious etiology. 9. Tracheostomy, G-tube. 10. Ventilator dependence. 11. anasarca 12. Hematuria 13. V pacing 14. hyponatremia 15. transaminitis, HIDA negative PLAN chronic care; unable to place care noted on vent/ no wean monitor labs and optimize ID follow up dialysis ongoing prognosis poor for recovery impression, plan, and exam edited and reviewed in detail care discussed with RN Subjective Allergies: Coded Allergies: No Known Allergies (Unverified , 06/10/19) Subjective remains ill on vent/ no change on HD vitals noted Objective Last 24 Hour Vital Signs Date Time Temp Pulse Resp B/P (MAP) Pulse Ox O2 Delivery O2 Flow Rate FiO2 10/21/19 12:00 24 10/21/19 12:00 79 10/21/19 12:00 99.3 13 111/58 (75) 100 10/21/19 11:05 72 14 24 10/21/19 09:12 100 131/60 10/21/19 09:11 131/60 10/21/19 08:00 Mechanical Ventilator 10/21/19 08:00 24 10/21/19 08:00 101 10/21/19 08:00 99.5 100 14 131/60 (83) 100 10/21/19 07:15 101 15 24 10/21/19 04:00 Mechanical Ventilator 10/21/19 04:00 99.7 97 16 137/57 (83) 100 10/21/19 04:00 24 10/21/19 04:00 91 10/21/19 02:58 104 18 24 10/21/19 00:00 98.4 103 13 94/47 (63) 100 10/21/19 00:00 103 10/21/19 00:00 Mechanical Ventilator 10/21/19 00:00 24 10/20/19 22:54 88 19 24 10/20/19 20:14 105 98/58 10/20/19 20:00 24 10/20/19 20:00 97 10/20/19 20:00 Mechanical Ventilator 10/20/19 20:00 98.6 107 16 90/45 (60) 100 9/11/20 19:00 94 13 24 10/20/19 16:00 Mechanical Ventilator 10/20/19 16:00 99 10/20/19 16:00 24 10/20/19 16:00 98.2 100 17 119/51 (73) 100 10/20/19 15:10 99 17 24 Intake and Output 10/20/19 10/21/19 19:00 07:00 Intake Total 45 ml 645 ml Output Total 2000 ml 100 ml Balance -1955 ml 545 ml Free Water 150 ml Tube Feeding 45 ml 495 ml Stool Total 100 ml Hemodialysis UF 2000 ml Laboratory Tests 10/21/19 00:02: POC Whole Blood Glucose 192H 10/21/19 05:22: POC Whole Blood Glucose 188H 10/21/19 12:02: POC Whole Blood Glucose 161H Height (Feet): 5 Height (Inches): 10.00 Weight (Pounds): 123 Objective GENERAL: Ill-appearing male, chronically debilitated. HEENT: Tracheostomy in midline. Questionable fullness in the submandibular region. LUNGS: Coarse breath sounds. reduced breath sounds CARDIAC: S1, S2. Regular rate and rhythm. borderline tachy ABDOMEN: Soft. G-tube. EXTREMITIES: With noted edema. NEUROLOGICAL: Poorly responsive, weak diffusely. Kain Ramirez MD Oct 21, 2019 13:39
--- NOTE | 2019-10-21 14:12 | NUR ---
CASE MANAGEMENT:REVIEW SI;SEPSIS. PNA. 99.7 107 18 90/45 100% TRACH/VENT FIO2 24% bg 188 IS;RISPERDAL PO QHS LISINOPRIL GT BID METOLAZONE GT QD INSULIN ASPART SUBQ AC/HS DILAUDID GT Q8H CARDIZEM GT Q8H KEREN STATUS DCP;SUB ACUTE
[2019-10-21 16:00] VITALS: BP 106/53
--- NOTE | 2019-10-21 17:06 | General Progress Note ---
Assessment/Plan Assessment/Plan: Assessment - abdominal distention, due to colonic dysmotility, - colonoscopy negative to hepatic flexure - diarrhea - presumed TF related - abnormal LFT - ? etiology --> HIDA negative and CT negative - Anemia - leukocytosis - stool OB (+) - EGD --> gastritis - Renal failure - Anasarca - resp failure, trach - b/l pleural effusions - dysphagia, GT - encephalopathy, contracted - poor px Recommendations - continue TF - Off of Statin - LFT better - rectal tube - roll side to side as feasible (hard due to severe contractions) - Elevate HOB - f/u labs - PPI - abx - supportive care Subjective Allergies: Coded Allergies: No Known Allergies (Unverified , 06/10/19) Subjective above noted NAD on TF family at bedside Objective Last 24 Hour Vital Signs Date Time Temp Pulse Resp B/P (MAP) Pulse Ox O2 Delivery O2 Flow Rate FiO2 10/21/19 16:38 86 10/21/19 15:05 99 14 24 10/21/19 12:00 24 10/21/19 12:00 Mechanical Ventilator 10/21/19 12:00 79 10/21/19 12:00 99.3 13 111/58 (75) 100 10/21/19 11:05 72 14 24 10/21/19 09:12 100 131/60 10/21/19 09:11 131/60 10/21/19 08:00 Mechanical Ventilator 10/21/19 08:00 24 10/21/19 08:00 101 10/21/19 08:00 99.5 100 14 131/60 (83) 100 10/21/19 07:15 101 15 24 10/21/19 04:00 Mechanical Ventilator 10/21/19 04:00 99.7 97 16 137/57 (83) 100 10/21/19 04:00 24 10/21/19 04:00 91 10/21/19 02:58 104 18 24 10/21/19 00:00 98.4 103 13 94/47 (63) 100 10/21/19 00:00 103 10/21/19 00:00 Mechanical Ventilator 10/21/19 00:00 24 10/20/19 22:54 88 19 24 10/20/19 20:14 105 98/58 10/20/19 20:00 24 10/20/19 20:00 97 10/20/19 20:00 Mechanical Ventilator 10/20/19 20:00 98.6 107 16 90/45 (60) 100 10/20/19 19:00 94 13 24 Intake and Output 10/20/19 10/21/19 19:00 07:00 Intake Total 45 ml 645 ml Output Total 2000 ml 100 ml Balance -1955 ml 545 ml Free Water 150 ml Tube Feeding 45 ml 495 ml Stool Total 100 ml Hemodialysis UF 2000 ml Laboratory Tests 10/21/19 00:02: POC Whole Blood Glucose 192H 10/21/19 05:22: POC Whole Blood Glucose 188H 10/21/19 12:02: POC Whole Blood Glucose 161H 10/21/19 16:40: POC Whole Blood Glucose 181H Height (Feet): 5 Height (Inches): 10.00 Weight (Pounds): 123 Objective Debilitated AA man NCAT (+) trach coarse BS RR abd less distended, anasarca, (+) GT, (+) rectal tube ext contracted Ronny Mustafa MD Oct 21, 2019 17:06
--- NOTE | 2019-10-21 17:21 | NUR ---
*-* INSURANCE *-* UPDATED CLINICALS AND REVIEWS HAVE BEEN FAXED TO: [facility] REF# [id number] RIC:HARPER P:[phone] F:[phone]
--- NOTE | 2019-10-21 19:24 | NUR ---
NURSE HAND-OFF REPORT: Important Events on Shift: Pt remains stable Patient Status: stable Diet: Nepro Pending Orders: [] Pending Results/Labs:[] Pending MD notification:[] Latest Vital Signs: Temperature 98.3 , Pulse 92 , B/P 106 /53 , Respiratory Rate 17 , O2 SAT 100 , Mechanical Ventilator, O2 Flow Rate 15.0 . Vital Sign Comment: [] EKG Rhythm: V-Paced Rhythm change?: N MD Notified?: N - MD Response: Latest Delacruz Fall Score: 70 Fall Risk: High Risk Safety Measures: Call light Within Reach, Bed Alarm Zone 1, Side Rails Side Rails x3, Bed position Low and Locked. Fall Precautions: Yellow Socks Report given to TAMICA Love.
--- NOTE | 2019-10-21 19:29 | NUR ---
"NURSE NOTES: Received report from TAMICA Shah. Pt obtunded upon assessment. Unable to make needs known. Vent settings: 550 vt | 40% saturating at 99 % Febrile at 100.4 axil temp at beginning of shift.cooling measures initiated. EKG v-pacing. G-tube patent and intact running Nepro at 45 cc. 0 residual. Elevated HOB 30 degrees. Rectal tube with 100cc output during previous shift. Bed kept in lowest and locked position. Bed alarm on. Will continue monitoring."
[2019-10-21] MEDS: Dyna-Hex 2% Top Sol 2oz TOPIC SCH (19:59)
[2019-10-21 20:00] VITALS: BP 133/64
--- NOTE | 2019-10-21 20:00 | NUR ---
NURSE NOTES: K+ 3.1 on 10/19. No noted coverage on orders. Left message for MD. Awaiting further orders. BP 92/47. 99% O2. Temp 98.4.
[2019-10-21] MEDS: Acetaminophen 650mg/20.3ml GT PRN (22:45)
[2019-10-22] VITALS (7 sets, daily range): BP systolic 91–122; BP diastolic 44–63
--- NOTE | 2019-10-22 | NUR ---
NURSE NOTES: Pt. temp 100.9 axil. PRN tylenol given. 99.9 after reassessment.
[2019-10-22] MEDS: NovoLOG Insulin Flexpen SUBQ SCH ×4 (00:28→17:10)
--- NOTE | 2019-10-22 06:44 | NUR ---
NURSE HAND-OFF REPORT: Important Events on Shift: N/A Patient Status: Stable Diet: Nepro Pending Orders: N Pending Results/Labs: Y Pending MD notification: Y Latest Vital Signs: Temperature 98.2 , Pulse 92 , B/P 122 /62 , Respiratory Rate 16 , O2 SAT 100 , Mechanical Ventilator, O2 Flow Rate 15.0 . Vital Sign Comment: WNL EKG Rhythm: V-Paced Rhythm change?: N MD Notified?: N - MD Response: Latest Delacruz Fall Score: 70 Fall Risk: High Risk Safety Measures: Call light Within Reach, Bed Alarm Zone 1, Side Rails Side Rails x3, Bed position Low and Locked. Fall Precautions: Yellow Socks Report given to TAMICA Olvera.
--- NOTE | 2019-10-22 07:17 | Hematology/Onc Progress Note ---
Assessment/Plan Assessment/Plan Assessment/recs # Anemia due to chronic disease/kidney disease as well, gi bleed + occult + noted --> was on iron in the past, now on hold --> has been started on Epogen sq --> as per renal care --> egd done and shows gastritis --> on ppi --> egd showed gastritis, colo recently done --> hgb 9-->8.7-->7.6-->9.2-->8.9-->9.2->9.3-->8.8->9.9-->9.2-->8.1-->8.7-->7.9- ->8.6-->8.9-->8.2->9-->9.3->8.9-->9.5-->10.6->9.2-->10->8.9-->8.3-->8.9-->9.9--> 9.3-->9-->9.3 --> spep ordered->wnl # Leukocytosis - with multiple infections, VRE UTI, flow is negative --> wbc trend 33-->28-->25->23->22->23->24->17.3-->17-->14->16-->15.6-->14-->14- >13->19->18->17->22->22->19->17-->18->20-->15-->14->16-->14-->17->18-->17->15--> 16-->17 --> on abx, linezolid and zosyn--> zosyn-->gent-->off --> + blood cultures with coag neg staph likely contaminated --> as per id recs --> has ordered a flow cytometry (with pathology) --> does show increased nK cell activity --> JOURDAN 2 and bcr-abl labs ordered (these are send outs)->negative --> plt 585-->613-->649-->669->663-->529-->506-->620-->720 # Elevated ddimer on admission --> duplex lower legs neg for dvt # Respiratory failure --> per pulm, s/p trach --> COVID 19 test negative x 2 # Hyperlipidemia --> statin po # Dysphagia s/p gtube with nepro --> per gi # ESRD with r fem julito --> hd as per renal # Dvt ppx scds Appreciate consultation and matt Rn Subjective Endocrine: Denies: no symptoms, excessive sweating, flushing, intolerance to cold, intolerance to heat, increased hunger, increased thirst, increased urine, unexplained weight gain, unexplained weight loss, other Allergies: Coded Allergies: No Known Allergies (Unverified , 06/10/19) All Systems: reviewed and negative except above Subjective 08/15 meds noted, no bleeding, hgb 8.8, wbc 28, path flow pending 08/16 flow pending dw pathologist, results pending, wbc 25, hgb 9 08/17 labs reviewed, meds reviewed, meds noted, no night sweats 08/19 remains obtunded, on vent/trach, no bleeding wbc 21.7 08/20 labs have been reviewed, no bleeding, wbc still elev, path reviewed 08/21 labs are noted, no bleeding, on vent, wbc better 08/22 labs noted, no bleeding, meds reviewed, wbc 24 hgb 7.6 08/23 vent, off abx, c diff negative, h/h stable 08/24 labs reviewed, on abx, wbc 17, hgb 8.9, no hemolysis 08/26 reviewed flow and is negative for leukemia, matt rn 08/27 meds reviewed, no night sweats, matt rn, no major bleeding 08/28 meds reivewed, labs noted 08/29 wbc is stable, approx 15, hgb 8.8, no hemolysis 08/30 labs are noted, is for colo today, hgb 9.9 08/31 right fem julito in place, unchanged, hgb 9.2, gi aware 09/01 labs noted, hgb 8.8, plt >600, no bleeding 09/02 labs noted, no bleeding, with elev wbc still, no new changes 09/03 meds are noted, no bleeding, labs reviewed hgb 8.6 09/04 no major events, hd as per renal, abx, no bleeding hgb low 09/05 labs are noted, no bleeding, meds have been reviewed 09/06 no new labs no hemolysis, cbc is noted, no bleeding 09/07 meds reviewed, no bleeding, matt rn, permacath functioning well 09/09 meds reviewed, wbc still elevated, as per id recs, cbc noted 09/10 is obtunded, with gutbe in place, labs reviewed 09/11 obtunded, as per id, observe now off abx, labs noted, wbc 19 09/12 cbc is pending, remains on epogen, also off abx 09/13 labs reviewed, no bleeding, elev wbc, no night sweats 09/14 meds noted, no bleeding, wbc 19, hgb 9.5, no night sweats 09/21 obtunded, remains on vent, labs noted, no bleeding, hgb 8.9 09/22 obtunded, labs noted, no bleeding, on vent, unchanged 09/23 unchanges, wbc remains elevated 20k, on abx, on vent 09/24 labs have been reviewed, no bleeding, wbc 15, may need abx 09/25 formula gtube changed, labs noted, remains obtunded, hgb 9.3 09/26 labs have been reviewed, no bleeding, matt wright, no night sweats 09/27 meds reviewed, no bleeding, wbc 14, on abx, remains obtunded 09/28 remains obtunded, no bleeding, wbc better, hgb 8.9, no hemolysis, plt 506 09/30 on colisitn, wbc elevated, cefepime added per id, hgb stable 10/01 labs reviewed, no bleeding, matt rn, no major events noted, wbc 14, hgb 10.6 10/02 labs have been noted, hgb 9.2, wbc 17, on abx, matt wright 10/03 continue on tube feeds, no bleeding, on vent, wbc remains elevated 10/04 remains ibtunded, is on a mechanical ventilator with tube feeds noted 10/05 labs are noted, hgb 8.6, wbc remains elevated, have ordered for spep 10/07 obtunded on vent, with gtube feeds, labs reviewed, matt wright 10/08 labs are noted, on vent/trach, hgb 10.2, remains obtunded 10/09 labns noted, wbc 15, hgb 8.9, remains altered, on tfs 10/10 labs noted, holding tube feeds, matt rn, hg stable 8.3 currently 10/11 remains on tfs, supportive care, labs noted, no bleeding 10/12 remains obtunded, hgb 8.9, no hemolysis is seen 10/14 labs reviewed, no bleeding, pending potential hd if rn available 10/15 is on vent, with gtube, labs reviewed, no bleeding, to get hd soon 10/16 remains on vent, matt rn at bedside, wbc 15, abx prn, plt also higher, will monitor 10/17 on vent, continue on tube feeds via gtube, labs improved 10/18 labs noted, remains on vent, and tube feeds, no major changes 10/19 nad, no bleeding, labs reviewed, no night sweats, bp elevated, cards aware 10/21 labs pending, with gtube running, on [facility] vent, abx off Objective Objective Current Medications Medications (Trade) Dose Ordered Sig/Leonel Route PRN Reason Start Time Stop Time Status Last Admin Dose Admin Acetaminophen (Tylenol) 650 mg Q6H PRN GT Temp >100.5 10/21/19 20:45 11/20/19 20:44 10/21/19 22:45 Chlorhexidine Gluconate (Felipa-Hex 2%) 1 applic DAILY@1999 TOPIC 09/12/19 20:00 12/11/19 19:59 10/21/19 19:59 Clonidine HCl (Catapres Tab) 0.1 mg Q4H PRN GT For High Blood Pressure 09/09/19 12:30 12/08/19 05:29 09/15/19 04:10 Dextrose (Dextrose 50%) 25 ml Q30M PRN IV Hypoglycemia 08/09/19 07:30 11/07/19 07:29 Dextrose (Dextrose 50%) 50 ml Q30M PRN IV Hypoglycemia 08/09/19 07:30 11/07/19 07:29 Diphenoxylate HCl/ Atropine (Lomotil) 2.5 mg QID PRN ORAL Diarrhea 09/24/19 08:45 10/24/19 08:44 Epoetin Andreas (Epoetin Andreas(ESRD on dialysis)) 10,000 unit WED-WED-WED SUBQ 10/09/19 21:00 01/07/20 20:59 10/20/19 20:14 Famotidine (Pepcid) 20 mg DAILY GT 08/30/19 09:00 11/28/19 08:59 10/21/19 09:12 Insulin Aspart (NovoLOG) Q6HR SUBQ 09/25/19 18:00 11/07/19 11:29 10/22/19 05:17 Lactobacillus Acidophilus (Culturelle) 1 tab EVERY 12 HOURS GT 10/03/19 21:00 12/13/19 17:59 10/21/19 19:59 Loperamide HCl (Imodium) 2 mg Q6H PRN NG Diarrhea 10/15/19 07:45 11/14/19 07:44 Metoprolol Tartrate (Lopressor) 200 mg Q12HR GT 08/09/19 09:00 11/07/19 08:59 10/21/19 20:00 Minoxidil (Loniten) 5 mg DAILY GT 08/09/19 09:00 11/07/19 08:59 10/21/19 09:11 Zinc Oxide (Zinc Oxide) 1 applic EVERY 12 HOURS TOPIC 10/03/19 09:00 11/08/19 17:59 10/21/19 20:00 Last 24 Hour Vital Signs Date Time Temp Pulse Resp B/P (MAP) Pulse Ox O2 Delivery O2 Flow Rate FiO2 10/22/19 05:00 92 122/62 (82) 10/22/19 04:00 Mechanical Ventilator 10/22/19 04:00 98.2 99 16 92/47 (62) 100 10/22/19 04:00 24 10/22/19 03:37 96 10/22/19 03:06 76 18 24 10/22/19 00:00 Mechanical Ventilator 10/22/19 00:00 99.9 98 16 91/44 (60) 100 10/21/19 23:49 92 10/21/19 23:15 99.9 10/21/19 22:55 85 17 24 10/21/19 20:00 24 10/21/19 20:00 Mechanical Ventilator 10/21/19 20:00 111 132/56 10/21/19 20:00 100.9 111 15 133/64 (87) 100 10/21/19 19:30 109 10/21/19 18:45 92 17 24 10/21/19 16:38 86 10/21/19 16:00 98.3 88 14 106/53 (70) 100 10/21/19 16:00 Mechanical Ventilator 10/21/19 16:00 24 10/21/19 15:05 99 14 24 10/21/19 12:00 24 10/21/19 12:00 Mechanical Ventilator 10/21/19 12:00 79 10/21/19 12:00 99.3 13 111/58 (75) 100 10/21/19 11:05 72 14 24 10/21/19 09:12 100 131/60 10/21/19 09:11 131/60 10/21/19 08:00 Mechanical Ventilator 10/21/19 08:00 24 10/21/19 08:00 101 10/21/19 08:00 99.5 100 14 131/60 (83) 100 10/21/19 07:15 101 15 24 10/21/19 04:00 Mechanical Ventilator 10/21/19 04:00 99.7 97 16 137/57 (83) 100 10/21/19 04:00 24 10/21/19 04:00 91 10/21/19 02:58 104 18 24 10/21/19 00:00 98.4 103 13 94/47 (63) 100 10/21/19 00:00 103 10/21/19 00:00 Mechanical Ventilator 10/21/19 00:00 24 10/20/19 22:54 88 19 24 10/20/19 20:14 105 98/58 10/20/19 20:00 24 10/20/19 20:00 97 10/20/19 20:00 Mechanical Ventilator 10/20/19 20:00 98.6 107 16 90/45 (60) 100 10/20/19 19:00 94 13 24 10/20/19 16:00 Mechanical Ventilator 10/20/19 16:00 99 10/20/19 16:00 24 10/20/19 16:00 98.2 100 17 119/51 (73) 100 10/20/19 15:10 99 17 24 10/20/19 12:00 98.6 89 16 140/57 (84) 100 10/20/19 12:00 Mechanical Ventilator 10/20/19 12:00 24 10/20/19 11:47 95 10/20/19 10:40 79 13 24 10/20/19 08:00 Mechanical Ventilator 10/20/19 08:00 24 10/20/19 08:00 98.7 76 16 135/61 (85) 100 10/20/19 07:50 79 Intake and Output 10/21/19 10/22/19 19:00 07:00 Intake Total 690 ml 510 ml Output Total 100 ml 50 ml Balance 590 ml 460 ml Free Water 240 ml 60 ml Tube Feeding 450 ml 450 ml Stool Total 100 ml 50 ml Labs Test 10/19/19 12:48 10/19/19 16:30 10/19/19 23:39 10/20/19 03:00 POC Whole Blood Glucose 189 MG/DL (74-106) 152 MG/DL (74-106) 161 MG/DL (74-106) White Blood Count 17.1 K/UL (4.8-10.8) Red Blood Count 4.00 M/UL (4.70-6.10) Hemoglobin 9.3 G/DL (14.2-18.0) Hematocrit 31.3 % (42.0-52.0) Mean Corpuscular Volume 78 FL (80-99) Mean Corpuscular Hemoglobin 23.3 PG (27.0-31.0) Mean Corpuscular Hemoglobin Concent 29.8 G/DL (32.0-36.0) Red Cell Distribution Width 16.6 % (11.6-14.8) Platelet Count 726 K/UL (150-450) Mean Platelet Volume 5.5 FL (6.5-10.1) Neutrophils (%) (Auto) 63.9 % (45.0-75.0) Lymphocytes (%) (Auto) 18.4 % (20.0-45.0) Monocytes (%) (Auto) 9.5 % (1.0-10.0) Eosinophils (%) (Auto) 7.5 % (0.0-3.0) Basophils (%) (Auto) 0.7 % (0.0-2.0) Sodium Level 133 MMOL/L (136-145) Potassium Level 3.3 MMOL/L (3.5-5.1) Chloride Level 99 MMOL/L (98-107) Carbon Dioxide Level 24 MMOL/L (21-32) Anion Gap 10 mmol/L (5-15) Blood Urea Nitrogen 80 mg/dL (7-18) Creatinine 4.1 MG/DL (0.55-1.30) Estimat Glomerular Filtration Rate 14.2 mL/min (>60) Glucose Level 155 MG/DL (74-106) Calcium Level 9.6 MG/DL (8.5-10.1) Test 10/20/19 05:02 10/21/19 00:02 10/21/19 05:22 10/21/19 12:02 POC Whole Blood Glucose 162 MG/DL (74-106) 192 MG/DL (74-106) 188 MG/DL (74-106) 161 MG/DL (74-106) Test 10/21/19 16:40 10/22/19 00:25 10/22/19 04:51 10/22/19 05:22 POC Whole Blood Glucose 181 MG/DL (74-106) 195 MG/DL (74-106) Height (Feet): 5 Height (Inches): 10.00 Weight (Pounds): 123 Objective Physical Exam General Appearance: nad, Chronically Ill Head: normocephalic Eyes: right eye PERRL - Will not open left eye ENT: moist mucus membranes Neck: other - submandibular mass R, fairly rigid with resistance to rotation to L, tracheotomy Respiratory: decreased breath sounds, crackles, other - pacemaker, vent+ Cardiovascular: regular rate, rhythm, edema - anasarca Gastrointestinal: non tender, distended, other - G tube Genitourinary: other Musculoskeletal: other - Contractures all extremities Neurologic: sensory intact, motor weakness, responsive Psychiatric: other Skin: Decubitus/Ulcer - Stage III right elbow, stage III left elbow, stage II sacrum, stage III scrotum, warm/dry Fitz Campos MD Oct 22, 2019 07:17
--- NOTE | 2019-10-22 07:20 | NUR ---
NURSE NOTES: received patient report from ambreen wright. patient is one vent. not in acute distress, comfortable. no acute events last night. no pending procedure today. wound care per order. will follow plan of care.
[2019-10-22 07:28] LABS: HEMATOCRIT 42.8 % (42.0-52.0); HEMOGLOBIN 12.7 G/DL (14.2-18.0); MEAN CORPUSCULAR VOLUME 78 FL (80-99); PLATELET COUNT 791 K/UL (150-450); RED BLOOD COUNT 5.48 M/UL (4.70-6.10); WHITE BLOOD COUNT 18.7 K/UL (4.8-10.8)
[2019-10-22 07:58] LABS: ALBUMIN 2.5 G/DL (3.4-5.0); ALBUMIN/GLOBULIN RATIO 0.3 (1.0-2.7); BILIRUBIN,TOTAL 0.5 MG/DL (0.2-1.0); CALCIUM 10.7 MG/DL (8.5-10.1); CREATININE 4.4 MG/DL (0.55-1.30); POTASSIUM 3.8 MMOL/L (3.5-5.1)
--- NOTE | 2019-10-22 08:46 | NUR ---
RD ASSESSMENT & RECOMMENDATIONS SEE CARE ACTIVITY FOR COMPLETE ASSESSMENT DAILY ESTIMATED NEEDS: Needs based on Renal, critical care, wound/ 61kg 22-30 kcals/kg 7613-9865 total kcals 1.25-2 g protein/kg 76-122 g total protein Fluid per MD, now on HD NUTRITION DIAGNOSIS: * Swallowing difficulty R/T respiratory failure, dysphagia as evidenced by trach/vent dep, PEG dep * Increased kcal/prot needs R/T wound healing as evidenced by admitted w/ multiple pressure injuries including full thickness wounds at junction of Shaft of penis, dorsal scrotum, R elbow, and DTPI @ L buttocks. CURRENT TF:NEPRO @45ml/hr x20 hrs ENTERAL NUTRITION RECOMMENDATIONS: Nepro @45ml/hr x20 hrs + Prosource x1 qdaily to provide 900ml, 1620 kcal, 73g + 11g pro, 654 ml free H2O - Maintain Nepro @goal, as tolerated. - Add PROSOURCE qdaily (11g pro) to better meet est pro needs - Flush per MD/ HOB over 30 degrees. --->>>If tolerating well, would rec increase to goal of 50ml/hr x20 hrs for 1L, 1800 kcal, 81g pro, 727ml free H2O as daily wts are unclear, and continue to trend wt. ADDITIONAL RECOMMENDATIONS: * Per SNF: HT=63" CQ=616 lbs (vs EMR wt of 166lbs) -> obtain re-calibrated bedscale wt, rec daily wt monitoring * Wound healing: con't Nephrovite + Garo BID/ Vit C dosing per Nephro * Monitor renal fxn and lytes closely w/ non-renal TF (K=5.0, 5.5-> wnl) -> Rec increased insulin w/ BG labs (on peter q6) * Monitor BGs w/ noncarb controlled TF, need for long acting insulin * Monitor stool output, need to change TF again-> stool more pasty
[2019-10-22] MEDS: Minoxidil 2.5mg tab GT SCH (08:56)
[2019-10-22] MEDS: Metoprolol Tartrate 100mg tab GT SCH ×2 (08:57→21:53)
[2019-10-22] MEDS: Lactobacillus-GG tablet GT SCH ×2 (08:58→21:53)
[2019-10-22] MEDS: Zinc Oxide Oint 2oz TOPIC SCH ×2 (08:59→21:53)
--- NOTE | 2019-10-22 13:07 | General Progress Note ---
Assessment/Plan Assessment/Plan: IMPRESSION: 1. anemia. 2. fevers improved 3. Leukocytosis. 4. hypotension 5. Acute on chronic renal failure. 6. Hyponatremia. 7. Severe protein-calorie malnutrition. 8. Significantly elevated C-reactive protein concerning for infectious etiology. 9. Tracheostomy, G-tube. 10. Ventilator dependence. 11. anasarca 12. Hematuria 13. V pacing 14. hyponatremia 15. transaminitis, HIDA negative PLAN chronic care; unable to place care noted on vent/ no wean monitor labs and optimize ID follow up dialysis ongoing prognosis poor for recovery impression, plan, and exam edited and reviewed in detail care discussed with RN Subjective Allergies: Coded Allergies: No Known Allergies (Unverified , 06/10/19) Subjective remains ill on vent/ no change on HD vitals noted Objective Last 24 Hour Vital Signs Date Time Temp Pulse Resp B/P (MAP) Pulse Ox O2 Delivery O2 Flow Rate FiO2 10/22/19 11:31 98.2 97 18 102/57 (72) 100 10/22/19 08:57 95 103/53 10/22/19 08:56 103/53 10/22/19 08:00 97 10/22/19 08:00 Mechanical Ventilator 10/22/19 08:00 98.2 95 21 103/53 (70) 100 10/22/19 08:00 24 10/22/19 07:15 82 16 24 10/22/19 05:00 92 122/62 (82) 10/22/19 04:00 Mechanical Ventilator 10/22/19 04:00 98.2 99 16 92/47 (62) 100 10/22/19 04:00 24 10/22/19 03:37 96 10/22/19 03:06 76 18 24 10/22/19 00:00 Mechanical Ventilator 10/22/19 00:00 99.9 98 16 91/44 (60) 100 10/21/19 23:49 92 10/21/19 23:15 99.9 10/21/19 22:55 85 17 24 10/21/19 20:00 24 10/21/19 20:00 Mechanical Ventilator 10/21/19 20:00 111 132/56 10/21/19 20:00 100.9 111 15 133/64 (87) 100 10/21/19 19:30 109 10/21/19 18:45 92 17 24 9/12/20 16:38 86 10/21/19 16:00 98.3 88 14 106/53 (70) 100 10/21/19 16:00 Mechanical Ventilator 10/21/19 16:00 24 10/21/19 15:05 99 14 24 Intake and Output 10/21/19 10/22/19 19:00 07:00 Intake Total 690 ml 510 ml Output Total 100 ml 50 ml Balance 590 ml 460 ml Free Water 240 ml 60 ml Tube Feeding 450 ml 450 ml Stool Total 100 ml 50 ml Laboratory Tests 10/21/19 16:40: POC Whole Blood Glucose 181H 10/22/19 00:25: POC Whole Blood Glucose [Pending] 10/22/19 04:51: POC Whole Blood Glucose 195H 10/22/19 05:22: White Blood Count 18.7H, Red Blood Count 5.48, Hemoglobin 12.7L, Hematocrit 42.8 , Mean Corpuscular Volume 78L, Mean Corpuscular Hemoglobin 23.1L, Mean Corpuscular Hemoglobin Concent 29.6L, Red Cell Distribution Width 17.0H, Platelet Count 791H, Mean Platelet Volume 5.4L, Neutrophils (%) (Auto) , Lymphocytes (%) (Auto) , Monocytes (%) (Auto) , Eosinophils (%) (Auto) , Basophils (%) (Auto) , Differential Total Cells Counted 100, Neutrophils % ( Manual) 73, Lymphocytes % (Manual) 17L, Monocytes % (Manual) 9, Eosinophils % ( Manual) 0, Basophils % (Manual) 1, Band Neutrophils 0, Platelet Estimate IncreasedH, Platelet Morphology Normal, Anisocytosis 1+, Microcytosis 1+, Sodium Level 134L, Potassium Level 3.8, Chloride Level 95L, Carbon Dioxide Level 26, Anion Gap 14, Blood Urea Nitrogen 76H, Creatinine 4.4H, Estimat Glomerular Filtration Rate 13.1, Glucose Level 196H, Calcium Level 10.7H, Total Bilirubin 0.5, Aspartate Amino Transf (AST/SGOT) 137H, Alanine Aminotransferase (ALT/SGPT) 112H, Alkaline Phosphatase 319H, Total Protein 11.1H, Albumin 2.5L, Globulin 8.6, Albumin/Globulin Ratio 0.3L 10/22/19 11:19: POC Whole Blood Glucose [Pending] Height (Feet): 5 Height (Inches): 10.00 Weight (Pounds): 123 Objective GENERAL: Ill-appearing male, chronically debilitated. HEENT: Tracheostomy in midline. Questionable fullness in the submandibular region. LUNGS: Coarse breath sounds. reduced breath sounds CARDIAC: S1, S2. Regular rate and rhythm. borderline tachy ABDOMEN: Soft. G-tube. EXTREMITIES: With noted edema. NEUROLOGICAL: Poorly responsive, weak diffusely. Kain Ramirez MD Oct 22, 2019 13:07
--- NOTE | 2019-10-22 14:07 | Nephrology Progress Note ---
Assessment/Plan Problem List: (1) UTI (urinary tract infection) (2) VRE (vancomycin-resistant Enterococci) infection (3) Hyponatremia (4) CKD (chronic kidney disease) stage 5, GFR less than 15 ml/min (5) Malnutrition (6) Anasarca (7) Decubitus skin ulcer (8) Anemia (9) Ventilator dependent (10) Right lower lobe pneumonia Plan dialysis stable, cont pulm care HD TTS Subjective ROS Limited/Unobtainable: Yes Objective Objective Last 24 Hour Vital Signs Date Time Temp Pulse Resp B/P (MAP) Pulse Ox O2 Delivery O2 Flow Rate FiO2 10/22/19 12:00 Mechanical Ventilator 10/22/19 12:00 24 10/22/19 12:00 100 10/22/19 11:31 98.2 97 18 102/57 (72) 100 10/22/19 10:45 99 14 24 10/22/19 08:57 95 103/53 10/22/19 08:56 103/53 10/22/19 08:00 97 10/22/19 08:00 Mechanical Ventilator 10/22/19 08:00 98.2 95 21 103/53 (70) 100 10/22/19 08:00 24 10/22/19 07:15 82 16 24 10/22/19 05:00 92 122/62 (82) 10/22/19 04:00 Mechanical Ventilator 10/22/19 04:00 98.2 99 16 92/47 (62) 100 10/22/19 04:00 24 10/22/19 03:37 96 10/22/19 03:06 76 18 24 10/22/19 00:00 Mechanical Ventilator 10/22/19 00:00 99.9 98 16 91/44 (60) 100 10/21/19 23:49 92 10/21/19 23:15 99.9 10/21/19 22:55 85 17 24 10/21/19 20:00 24 10/21/19 20:00 Mechanical Ventilator 10/21/19 20:00 111 132/56 10/21/19 20:00 100.9 111 15 133/64 (87) 100 10/21/19 19:30 109 10/21/19 18:45 92 17 24 10/21/19 16:38 86 10/21/19 16:00 98.3 88 14 106/53 (70) 100 10/21/19 16:00 Mechanical Ventilator 10/21/19 16:00 24 10/21/19 15:05 99 14 24 Intake and Output 10/21/19 10/22/19 19:00 07:00 Intake Total 690 ml 510 ml Output Total 100 ml 50 ml Balance 590 ml 460 ml Free Water 240 ml 60 ml Tube Feeding 450 ml 450 ml Stool Total 100 ml 50 ml Laboratory Tests 10/21/19 16:40: POC Whole Blood Glucose 181H 10/22/19 00:25: POC Whole Blood Glucose [Pending] 10/22/19 04:51: POC Whole Blood Glucose 195H 10/22/19 05:22: White Blood Count 18.7H, Red Blood Count 5.48, Hemoglobin 12.7L, Hematocrit 42.8 , Mean Corpuscular Volume 78L, Mean Corpuscular Hemoglobin 23.1L, Mean Corpuscular Hemoglobin Concent 29.6L, Red Cell Distribution Width 17.0H, Platelet Count 791H, Mean Platelet Volume 5.4L, Neutrophils (%) (Auto) , Lymphocytes (%) (Auto) , Monocytes (%) (Auto) , Eosinophils (%) (Auto) , Basophils (%) (Auto) , Differential Total Cells Counted 100, Neutrophils % ( Manual) 73, Lymphocytes % (Manual) 17L, Monocytes % (Manual) 9, Eosinophils % ( Manual) 0, Basophils % (Manual) 1, Band Neutrophils 0, Platelet Estimate IncreasedH, Platelet Morphology Normal, Anisocytosis 1+, Microcytosis 1+, Sodium Level 134L, Potassium Level 3.8, Chloride Level 95L, Carbon Dioxide Level 26, Anion Gap 14, Blood Urea Nitrogen 76H, Creatinine 4.4H, Estimat Glomerular Filtration Rate 13.1, Glucose Level 196H, Calcium Level 10.7H, Total Bilirubin 0.5, Aspartate Amino Transf (AST/SGOT) 137H, Alanine Aminotransferase (ALT/SGPT) 112H, Alkaline Phosphatase 319H, Total Protein 11.1H, Albumin 2.5L, Globulin 8.6, Albumin/Globulin Ratio 0.3L 10/22/19 11:19: POC Whole Blood Glucose [Pending] Height (Feet): 5 Height (Inches): 10.00 Weight (Pounds): 123 General Appearance: lethargic Cardiovascular: regular rhythm Respiratory/Chest: crackles/rales Abdomen: non tender Extremities: no edema Neurologic: unresponsive Carmelo Frank MD Oct 22, 2019 14:07
--- NOTE | 2019-10-22 14:45 | Infectious Diseases Prog Note ---
Assessment/Plan Assessment/Plan A: 1. Pneumonia with Acinetobacter & Proteus treated COVID19 X2 : negative 2. ESRD on HD 3. Leukocytosis 4. Respiratory failure, Ventilator dependent 5. Anemia 6. Elevated transaminase 7. 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 Klebsiella catheter infection s/p removal 10. Diarrhea, C. difficile negative PLAN: 1. Observe off of antibiotic 2. Repeat CXR Subjective ROS Limited/Unobtainable: Yes Constitutional: Reports: fever, other - last night fever of 100.9 Allergies: Coded Allergies: No Known Allergies (Unverified , 06/10/19) Objective Last 24 Hour Vital Signs Date Time Temp Pulse Resp B/P (MAP) Pulse Ox O2 Delivery O2 Flow Rate FiO2 10/22/19 12:00 Mechanical Ventilator 10/22/19 12:00 24 10/22/19 12:00 100 10/22/19 11:31 98.2 97 18 102/57 (72) 100 10/22/19 10:45 99 14 24 10/22/19 08:57 95 103/53 10/22/19 08:56 103/53 10/22/19 08:00 97 10/22/19 08:00 Mechanical Ventilator 10/22/19 08:00 98.2 95 21 103/53 (70) 100 10/22/19 08:00 24 10/22/19 07:15 82 16 24 10/22/19 05:00 92 122/62 (82) 10/22/19 04:00 Mechanical Ventilator 10/22/19 04:00 98.2 99 16 92/47 (62) 100 10/22/19 04:00 24 10/22/19 03:37 96 10/22/19 03:06 76 18 24 10/22/19 00:00 Mechanical Ventilator 10/22/19 00:00 99.9 98 16 91/44 (60) 100 10/21/19 23:49 92 10/21/19 23:15 99.9 10/21/19 22:55 85 17 24 10/21/19 20:00 24 10/21/19 20:00 Mechanical Ventilator 10/21/19 20:00 111 132/56 10/21/19 20:00 100.9 111 15 133/64 (87) 100 10/21/19 19:30 109 10/21/19 18:45 92 17 24 10/21/19 16:38 86 10/21/19 16:00 98.3 88 14 106/53 (70) 100 10/21/19 16:00 Mechanical Ventilator 10/21/19 16:00 24 10/21/19 15:05 99 14 24 Height (Feet): 5 Height (Inches): 10.00 Weight (Pounds): 123 General Appearance: no acute distress, cachetic HEENT: status post trach Respiratory/Chest: decreased breath sounds, other - on ventilator Cardiovascular: normal rate Abdomen: soft, non tender, other - GT feeding Extremities: no edema Neurologic/Psychiatric: unresponsiveness, aphasia Laboratory Tests Test 10/21/19 16:40 10/22/19 00:25 10/22/19 04:51 10/22/19 05:22 POC Whole Blood Glucose 181 MG/DL (74-106) H Pending 195 MG/DL (74-106) H White Blood Count 18.7 K/UL (4.8-10.8) H Red Blood Count 5.48 M/UL (4.70-6.10) Hemoglobin 12.7 G/DL (14.2-18.0) L Hematocrit 42.8 % (42.0-52.0) Mean Corpuscular Volume 78 FL (80-99) L Mean Corpuscular Hemoglobin 23.1 PG (27.0-31.0) L Mean Corpuscular Hemoglobin Concent 29.6 G/DL (32.0-36.0) L Red Cell Distribution Width 17.0 % (11.6-14.8) H Platelet Count 791 K/UL (150-450) H Mean Platelet Volume 5.4 FL (6.5-10.1) L Neutrophils (%) (Auto) % (45.0-75.0) Lymphocytes (%) (Auto) % (20.0-45.0) Monocytes (%) (Auto) % (1.0-10.0) Eosinophils (%) (Auto) % (0.0-3.0) Basophils (%) (Auto) % (0.0-2.0) Differential Total Cells Counted 100 Neutrophils % (Manual) 73 % (45-75) Lymphocytes % (Manual) 17 % (20-45) L Monocytes % (Manual) 9 % (1-10) Eosinophils % (Manual) 0 % (0-3) Basophils % (Manual) 1 % (0-2) Band Neutrophils 0 % (0-8) Platelet Estimate Increased H Platelet Morphology Normal Anisocytosis 1+ Microcytosis 1+ Sodium Level 134 MMOL/L (136-145) L Potassium Level 3.8 MMOL/L (3.5-5.1) Chloride Level 95 MMOL/L (98-107) L Carbon Dioxide Level 26 MMOL/L (21-32) Anion Gap 14 mmol/L (5-15) Blood Urea Nitrogen 76 mg/dL (7-18) H Creatinine 4.4 MG/DL (0.55-1.30) H Estimat Glomerular Filtration Rate 13.1 mL/min (>60) Glucose Level 196 MG/DL (74-106) H Calcium Level 10.7 MG/DL (8.5-10.1) H Total Bilirubin 0.5 MG/DL (0.2-1.0) Aspartate Amino Transf (AST/SGOT) 137 U/L (15-37) H Alanine Aminotransferase (ALT/SGPT) 112 U/L (12-78) H Alkaline Phosphatase 319 U/L (46-116) H Total Protein 11.1 G/DL (6.4-8.2) H Albumin 2.5 G/DL (3.4-5.0) L Globulin 8.6 g/dL Albumin/Globulin Ratio 0.3 (1.0-2.7) L Test 10/22/19 11:19 POC Whole Blood Glucose Pending Current Medications Medications (Trade) Dose Ordered Sig/Leonel Route PRN Reason Start Time Stop Time Status Last Admin Dose Admin Acetaminophen (Tylenol) 650 mg Q6H PRN GT Temp >100.5 10/21/19 20:45 11/20/19 20:44 10/21/19 22:45 Chlorhexidine Gluconate (Felipa-Hex 2%) 1 applic DAILY@1999 TOPIC 09/12/19 20:00 12/11/19 19:59 10/21/19 19:59 Clonidine HCl (Catapres Tab) 0.1 mg Q4H PRN GT For High Blood Pressure 09/09/19 12:30 12/08/19 05:29 09/15/19 04:10 Dextrose (Dextrose 50%) 25 ml Q30M PRN IV Hypoglycemia 08/09/19 07:30 11/07/19 07:29 Dextrose (Dextrose 50%) 50 ml Q30M PRN IV Hypoglycemia 08/09/19 07:30 11/07/19 07:29 Diphenoxylate HCl/ Atropine (Lomotil) 2.5 mg QID PRN ORAL Diarrhea 09/24/19 08:45 10/24/19 08:44 Epoetin Andreas (Epoetin Andreas(ESRD on dialysis)) 10,000 unit SUBQ 10/09/19 21:00 01/07/20 20:59 10/20/19 20:14 Famotidine (Pepcid) 20 mg DAILY GT 08/30/19 09:00 11/28/19 08:59 10/22/19 08:58 Insulin Aspart (NovoLOG) Q6HR SUBQ 09/25/19 18:00 11/07/19 11:29 10/22/19 05:17 Lactobacillus Acidophilus (Culturelle) 1 tab EVERY 12 HOURS GT 10/03/19 21:00 12/13/19 17:59 10/22/19 08:58 Loperamide HCl (Imodium) 2 mg Q6H PRN NG Diarrhea 10/15/19 07:45 11/14/19 07:44 Metoprolol Tartrate (Lopressor) 200 mg Q12HR GT 08/09/19 09:00 11/07/19 08:59 10/21/19 20:00 Minoxidil (Loniten) 5 mg DAILY GT 08/09/19 09:00 11/07/19 08:59 10/21/19 09:11 Zinc Oxide (Zinc Oxide) 1 applic EVERY 12 HOURS TOPIC 10/03/19 09:00 11/08/19 17:59 10/22/19 08:59 Real De Leon MD Oct 22, 2019 14:45
--- NOTE | 2019-10-22 15:08 | NUR ---
CASE MANAGEMENT:REVIEW SI;SEPSIS. PNA. 100.9 111 17 91/44 100 TRACH/VENT FIO2 24% WBC 18.7 PLT 797 NA 134 CL 95 BUN 76 CR 4.4 BG 195 CA 10.7 AST 137 ALT 112 ALP 319 TOT PROTEIN 11.1 ALB 2.5 IS;LISINOPRIL GT BID METOLAZONE GT QD INSULIN ASPART SUBQ AC/HS DILAUDID GT Q8H CARDIZEM GT Q8H EPOETIN NATE SUBQ MWF KEREN STATUS DCP;SUB ACUTE PENDING MAR[facility]ABEL FROM [facility]
--- NOTE | 2019-10-22 15:17 | NUR ---
*-* INSURANCE *-* UPDATED CLINICALS AND REVIEWS HAVE BEEN FAXED TO: ELIN / PAWEL-LEONEL [facility] [place] REF# [id number] RIC:HARPER P:[phone] F:[phone]
--- NOTE | 2019-10-22 16:47 | Surgery Progress Note ---
Surgery Progress Note Subjective Procedure Performed Right femoral temporary hemodialysis catheter removal Symptoms: improved, tolerating diet, passing flatus Objective Last 24 Hour Vital Signs Date Time Temp Pulse Resp B/P (MAP) Pulse Ox O2 Delivery O2 Flow Rate FiO2 10/22/19 16:00 86 10/22/19 15:05 79 14 24 10/22/19 12:00 Mechanical Ventilator 10/22/19 12:00 24 10/22/19 12:00 100 10/22/19 11:31 98.2 97 18 102/57 (72) 100 10/22/19 10:45 99 14 24 10/22/19 08:57 95 103/53 10/22/19 08:56 103/53 10/22/19 08:00 97 10/22/19 08:00 Mechanical Ventilator 10/22/19 08:00 98.2 95 21 103/53 (70) 100 10/22/19 08:00 24 10/22/19 07:15 82 16 24 10/22/19 05:00 92 122/62 (82) 10/22/19 04:00 Mechanical Ventilator 10/22/19 04:00 98.2 99 16 92/47 (62) 100 10/22/19 04:00 24 10/22/19 03:37 96 10/22/19 03:06 76 18 24 10/22/19 00:00 Mechanical Ventilator 10/22/19 00:00 99.9 98 16 91/44 (60) 100 10/21/19 23:49 92 10/21/19 23:15 99.9 10/21/19 22:55 85 17 24 10/21/19 20:00 24 10/21/19 20:00 Mechanical Ventilator 10/21/19 20:00 111 132/56 10/21/19 20:00 100.9 111 15 133/64 (87) 100 10/21/19 19:30 109 10/21/19 18:45 92 17 24 I&O Intake and Output 10/21/19 10/22/19 19:00 07:00 Intake Total 690 ml 510 ml Output Total 100 ml 50 ml Balance 590 ml 460 ml Free Water 240 ml 60 ml Tube Feeding 450 ml 450 ml Stool Total 100 ml 50 ml Dressing: saturated Wound: intact Cardiovascular: RSR Respiratory: decreased breath sounds Abdomen: non-tender, present bowel sounds Extremities: no tenderness, no cyanosis Laboratory Tests Test 10/22/19 00:25 10/22/19 04:51 10/22/19 05:22 10/22/19 11:19 POC Whole Blood Glucose Pending 195 MG/DL (74-106) H Pending White Blood Count 18.7 K/UL (4.8-10.8) H Red Blood Count 5.48 M/UL (4.70-6.10) Hemoglobin 12.7 G/DL (14.2-18.0) L Hematocrit 42.8 % (42.0-52.0) Mean Corpuscular Volume 78 FL (80-99) L Mean Corpuscular Hemoglobin 23.1 PG (27.0-31.0) L Mean Corpuscular Hemoglobin Concent 29.6 G/DL (32.0-36.0) L Red Cell Distribution Width 17.0 % (11.6-14.8) H Platelet Count 791 K/UL (150-450) H Mean Platelet Volume 5.4 FL (6.5-10.1) L Neutrophils (%) (Auto) % (45.0-75.0) Lymphocytes (%) (Auto) % (20.0-45.0) Monocytes (%) (Auto) % (1.0-10.0) Eosinophils (%) (Auto) % (0.0-3.0) Basophils (%) (Auto) % (0.0-2.0) Differential Total Cells Counted 100 Neutrophils % (Manual) 73 % (45-75) Lymphocytes % (Manual) 17 % (20-45) L Monocytes % (Manual) 9 % (1-10) Eosinophils % (Manual) 0 % (0-3) Basophils % (Manual) 1 % (0-2) Band Neutrophils 0 % (0-8) Platelet Estimate Increased H Platelet Morphology Normal Anisocytosis 1+ Microcytosis 1+ Sodium Level 134 MMOL/L (136-145) L Potassium Level 3.8 MMOL/L (3.5-5.1) Chloride Level 95 MMOL/L (98-107) L Carbon Dioxide Level 26 MMOL/L (21-32) Anion Gap 14 mmol/L (5-15) Blood Urea Nitrogen 76 mg/dL (7-18) H Creatinine 4.4 MG/DL (0.55-1.30) H Estimat Glomerular Filtration Rate 13.1 mL/min (>60) Glucose Level 196 MG/DL (74-106) H Calcium Level 10.7 MG/DL (8.5-10.1) H Total Bilirubin 0.5 MG/DL (0.2-1.0) Aspartate Amino Transf (AST/SGOT) 137 U/L (15-37) H Alanine Aminotransferase (ALT/SGPT) 112 U/L (12-78) H Alkaline Phosphatase 319 U/L (46-116) H Total Protein 11.1 G/DL (6.4-8.2) H Albumin 2.5 G/DL (3.4-5.0) L Globulin 8.6 g/dL Albumin/Globulin Ratio 0.3 (1.0-2.7) L Plan Problems: (1) Anemia (2) Hyponatremia (3) Leukocytosis Assessment & Plan: Tracheostomy, left chest pacemaker are again demonstrated. There is bilateral interstitial and airspace disease and bilateral pleural fluid again demonstrated. This appears more severe than on the prior study. Bilateral interstitial and airspace infiltrates versus edema. Bilateral pleural effusions Leukocytosis, anemia, tachycardia, abnormal labs. Wound evaluated and likely etiology of patient's sepsis. Leukocytosis etiology work-up antibiotics per infectious disease Appreciate nephrology input transfuse with dialysis We will follow with recommendations thank you allowing participation's care plan HD access temp HD discussed with medical teams line okay HD as per renal persistent leukocytosis flow cyto noted improving trending down right fem line removed wbc fluctuating h/h stable lft's elevated There is a right pleural effusion Gallbladder demonstrates tiny wall adherent nonmobile echogenic foci, some possible mural calcifications, and comet tail artifact in the anterior wall. Patient unable to report sonographic Kent's sign. Common bile duct measures 4 mm in diameter. No intrahepatic biliary ductal dilatation. Liver demonstrates normal echogenicity, no focal abnormality. There is some surface nodularity. Portal vein and hepatic veins are patent. Pancreas is incompletely visualized due to overlying bowel gas, visualized portions are unremarkable. Spleen is unremarkable. Left kidney measures 8.7 cm in length. Right kidney measures 8.9 cm length. Both kidneys demonstrate increased echogenicity. There is no hydronephrosis. No focal abnormality . Abdominal aorta is partially obscured by bowel gas, visualized portions are non-aneurysmal . A gastrostomy is noted Impression: Tiny wall adherent nonmobile gallbladder echogenic foci, may reflect wall adherent calculi, small polyps, and/or pleural calcifications. Anterior wall comet tail artifact suggests foci of adenomyomatosis. Normal caliber common bile duct Possible hepatic surface nodularity, could indicate cirrhotic change Echogenic kidneys, consistent with medical renal disease. No hydronephrosis Right pleural effusion Gastrostomy Note nonvisualization of portions of the pancreas and abdominal aorta HIDA NEGATIVE trend labs (4) Ventilator dependent (5) Right lower lobe pneumonia (6) Hypokalemia (7) Hyperkalemia (8) Anasarca (9) Decubitus skin ulcer Assessment & Plan: pt presented on admission with generalized edemae.Skin assessed under tracheostomy and no areas of concerns noted. GT Insertion is marginally erythematous with small amt slough at stoma. Unstageable Pressure Injury R elbow. Base of wound is 100% yellow slough, Borders are erythematous. Wound oozing small amt haemopurulent exudate.Darker skin tone without elevation in skin temp or erythema periwound. Pt's penis and scrotum are grossly edematous and enlarged and weeping serous exudate from numerous sites both from penis and scrotum. Two small open wounds noted at base of at base of shaft of penis ,and contreras aspect of scrotum. Both wounds oozing large amt sanguineous and serosanguineous exudate. Multiple open wounds with Biofilm at base of each wounds noted to contreras/lateral,inferior and posterior aspects of scrotum. These wounds noted to be oozing moderate amts of serosanguineous exudate. Hypertrophic scar with scattered areas of hyperpigmentation noted to Sacrum. DTPI noted to L Buttocks (L)7cm x (W)9cm. Base of wound is purple and indurated.Darker skin tone without erythema, induration or fluctuance R and L ischial tuberosities. Both heels are boggy with non-blanchable erythema. Tx.Plan: Cleanse wound R elbow with Saline. Apply TheraHoney, Apply Moisture Barrier Paste periwound. Cover with Optifoam drsg.Change Daily and prn. Wash GT site with soap and water.Pat dry. Apply Zinc Oxide Paste to GT site Daily. Leave Open to Air. Apply Zinc Oxide Paste to entire Scrotum, Place ABD pads to R and L lateral, and posterior aspects of scrotum TWICE daily. Apply Cavilon Skin Barrier to malleoli and both Heels. Cover each site with Optifoam drsgs. Change every 7 days and prn. Reposition at least every 2hours or as tolerated. Off-load heels with Pillows. APM/BECCA Mattress overlay. (10) Malnutrition Assessment & Plan: DAILY ESTIMATED NEEDS: Needs based on Renal, critical care, wound/ 61kg 22-30 kcals/kg [id number] total kcals 1.25-2 g protein/kg 76-122 g total protein Fluid per MD, now on HD NUTRITION DIAGNOSIS: * Swallowing difficulty R/T respiratory failure, dysphagia as evidenced by trach/vent dep, PEG dep * Increased kcal/prot needs R/T wound healing as evidenced by admitted w/ multiple pressure injuries including full thickness wounds at junction of Shaft of penis, dorsal scrotum, R elbow, and DTPI @ L buttocks. CURRENT TF:Osmolite 1.2 @ 60ml/hr x 20 hrs + Garo BID ENTERAL NUTRITION RECOMMENDATIONS: Vital AF 1.2 @ 60ml/hr x 20 hrs to provide 1200ml, 1440kcal, 90g prot, 973ml free water * Rec 20 hr run time for GI rest. -> W/ improved GI status, rec Vital AF 1.2, an elemental and carb controlled TF -> monitor lytes and renal fxn closely, monitor need for renal TF -> TF @ goal will provide 1642mg K and 2025mg Phos -> HOB over 30 degrees/ water flush per MD -------- Trial of Osmolite 1.2 continue for now- Goal of 60ml/hr for 20 hrs (4 hrs bowel rest) to provide 1200ml, 1440 kcal, 67g pro, 984ml free H2O, -> Rec to add prosource 1 pack daily (11g pro) to better meet est pro needs. -> Monitor BG, K closely. Pt would require increased insulin coverage as TF at goal would provide 56g more carbs per day. ADDITIONAL RECOMMENDATIONS: * Per SNF: HT=63" VA=772 lbs (vs EMR wt of 166lbs) -> obtain re-calibrated bedscale wt, rec daily wt monitoring * Wound healing: con't Nephrovite + Garo BID/ Vit C dosing per Nephro * Monitor renal fxn and lytes closely w/ non-renal TF ->K low, phos wnl;updated mag level; rec increased insulin w/ BG labs * Daily wts w/ drop to 118-20 lbs, rec to recalibrate for accurate CBW * Consider DC Miralax if medically appropriate: +rectal tube (11) Uremia (12) CKD (chronic kidney disease) stage 5, GFR less than 15 ml/min (13) Colon distention Assessment & Plan: discussed with GI likely functional as having lots of loose bm rectal tube kub f/u s/p colonoscopy - findings reviewed with GI improved cont diet as tolerated Marked distention of the sigmoid colon. 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 No evidence of bowel wall thickening or pneumatosis 12 mm focus of contrast enhancement in the right pectineus muscle. While nonspecific in appearance, appearance raises concern for a possible pseudoaneurysm. Ill- defined thickening of the pectus medius muscle could indicate some intramuscular hemorrhage. The above findings were phoned to Dr. Urias at the time of interpretation Large bilateral pleural effusions Hazy pulmonary parenchymal opacities as well as dense consolidative opacities most likely represent pulmonary edema, but could represent pneumonia Evidence of anasarca elsewhere, with generalized edema of the subcutaneous fat Bladder wall thickening, raises concern for cystitis. Avalos catheter in place Colonic diverticulosis. No evidence of diverticulitis. Tracheostomy Pacemaker Gastrostomy Gastrostomy again demonstrated in satisfactory position. The stomach is otherwise unremarkable. The distal esophagus and duodenum are unremarkable. Ingested contrast reaches the colon. No small bowel distention or small bowel wall thickening. Interim placement of a rectal tube. There are a few colonic diverticula. No definite evidence of acute diverticulitis. The appendix is prominent in caliber, as previously No free or loculated intraperitoneal gas or fluid is evident. Again demonstrated is marked gaseous distention of the sigmoid colon which measures up to 12.6 cm in diameter, with the proximal aspect located laterally to the distal aspect, and caliber transition in the mesenteric root of both entry points. However, there is stool within the proximal portion which appears to be at least partially contrast opacified, and no definite persisting of the vascular pedicle demonstrated. The liver, gallbladder, bile ducts, pancreas, spleen, adrenals, kidneys are unremarkable. There are accessory splenules demonstrated. No retroperitoneal or mesenteric mass or adenopathy. No pelvic mass or adenopathy. The prostate is enlarged and protrudes into the inferior bladder. The bladder is thick-walled. Previously demonstrated Avalos catheter has been removed. Again demonstrated is a large right pleural effusion and a moderate to large left pleural effusion. Again demonstrated are compressive atelectatic changes of significant portions of both lower lobes. Pacemaker wires are seen within the heart. Previously demonstrated high attenuation focus within the right pectineus muscle is not evident. However, there is a low-attenuation area which measures 2 cm diameter centrally which is not evident previously. There is diffuse edema of the subcutaneous fat. This is less severe than was demonstrated previously. There are degenerative proliferative changes of the lumbar spine. Impression: Abnormal configuration of the sigmoid colon, with marked distention of a sigmoid, inversion of the relationships of the proximal and descending colon, and evidence of immediately apposed transition point raises concern for sigmoid volvulus. However, similarity to the prior exam, presence of what appears to be contrast opacified stool within the dilated segment, and lack of evidence of twisting of the vascular pedicle raises the possibility that this is baseline for this patient or possibly dysfunctional in nature. Correlate with clinical findings Enlarged prostate with protrusion into the bladder floor. Bladder neoplasm not completely excludable as a result Thick-walled bladder, may indicate cystitis or be due to chronic bladder lumen obstruction related to the above Abnormalities right pectineus muscle, with a 2 cm central low attenuation area. Note that previous exam have a high attenuation focus suspicious for a small pseudoaneurysm. 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 Colonic diverticulosis. No evidence of diverticulitis Gastrostomy in good position Rectal tube in good position Large right and moderate to large left pleural effusions. Resultant compressive pulmonary atelectatic changes or graft edema subcutaneous fat, less severe than was demonstrated on prior 08/17/2019 exam. Jonathan Urias Oct 22, 2019 16:47
--- NOTE | 2019-10-22 19:19 | NUR ---
NURSE HAND-OFF REPORT: Important Events on Shift:no acute events all thoughout the shift Patient Status: full code Diet: nepro 45ml/hr Pending Orders: cxr Pending Results/Labs:[] Pending MD notification:[] Latest Vital Signs: Temperature 98.6 , Pulse 77 , B/P 107 /53 , Respiratory Rate 21 , O2 SAT 99 , Mechanical Ventilator, O2 Flow Rate 15.0 . Vital Sign Comment: stable EKG Rhythm: v-pacing Rhythm change?: N MD Notified?: N - MD Response: Latest Delacruz Fall Score: 70 Fall Risk: High Risk Safety Measures: Call light Within Reach, Bed Alarm Zone 2, Side Rails Side Rails x2, Bed position Low and Locked. Fall Precautions: Yellow Socks Yellow Gown Patient Fall Education Report given to
--- NOTE | 2019-10-22 19:20 | NUR ---
"NURSE NOTES: Received report from TAMICA Olvera with update. Pt obtunded upon assessment. Unable to make needs known. Passive and resistive to care. Vent settings: 550 vt | 24% fiO2 saturating at 100 % EKG v-pacing. Vitals WNL. G-tube patent and intact running Nepro at 45 cc. 0 residual. Elevated HOB 30 degrees. Rectal tube intact. 0 output during previous shift. Bed kept in lowest and locked position. Bed alarm on. Will continue to monitor."
[2019-10-22] MEDS: Dyna-Hex 2% Top Sol 2oz TOPIC SCH (21:52)
--- NOTE | 2019-10-22 22:30 | General Progress Note ---
Assessment/Plan Assessment/Plan: Assessment - abdominal distention, due to colonic dysmotility, - colonoscopy negative to hepatic flexure - diarrhea - presumed TF related - abnormal LFT - ? etiology --> HIDA negative and CT negative - Anemia - leukocytosis - stool OB (+) - EGD --> gastritis - Renal failure - Anasarca - resp failure, trach - b/l pleural effusions - dysphagia, GT - encephalopathy, contracted - poor px Recommendations - continue TF - check hepatitis markers - rectal tube - roll side to side as feasible (hard due to severe contractions) - Elevate HOB - f/u labs - PPI - abx - supportive care Subjective Allergies: Coded Allergies: No Known Allergies (Unverified , 06/10/19) Subjective above noted NAD on TF LFT higher today Objective Last 24 Hour Vital Signs Date Time Temp Pulse Resp B/P (MAP) Pulse Ox O2 Delivery O2 Flow Rate FiO2 10/22/19 21:53 102 121/63 10/22/19 20:00 98.1 102 20 121/63 (82) 100 10/22/19 19:32 84 10/22/19 16:00 Mechanical Ventilator 10/22/19 16:00 86 10/22/19 16:00 98.6 77 21 107/53 (71) 99 10/22/19 16:00 24 10/22/19 15:05 79 14 24 10/22/19 12:00 Mechanical Ventilator 10/22/19 12:00 24 10/22/19 12:00 100 10/22/19 11:31 98.2 97 18 102/57 (72) 100 10/22/19 10:45 99 14 24 10/22/19 08:57 95 103/53 10/22/19 08:56 103/53 10/22/19 08:00 97 10/22/19 08:00 Mechanical Ventilator 10/22/19 08:00 98.2 95 21 103/53 (70) 100 10/22/19 08:00 24 10/22/19 07:15 82 16 24 10/22/19 05:00 92 122/62 (82) 10/22/19 04:00 Mechanical Ventilator 10/22/19 04:00 98.2 99 16 92/47 (62) 100 10/22/19 04:00 24 10/22/19 03:37 96 10/22/19 03:06 76 18 24 10/22/19 00:00 Mechanical Ventilator 10/22/19 00:00 99.9 98 16 91/44 (60) 100 10/21/19 23:49 92 10/21/19 23:15 99.9 10/21/19 22:55 85 17 24 Intake and Output 10/21/19 10/22/19 19:00 07:00 Intake Total 690 ml 510 ml Output Total 100 ml 50 ml Balance 590 ml 460 ml Free Water 240 ml 60 ml Tube Feeding 450 ml 450 ml Stool Total 100 ml 50 ml Laboratory Tests 10/22/19 00:25: POC Whole Blood Glucose [Pending] 10/22/19 04:51: POC Whole Blood Glucose 195H 10/22/19 05:22: White Blood Count 18.7H, Red Blood Count 5.48, Hemoglobin 12.7L, Hematocrit 42.8 , Mean Corpuscular Volume 78L, Mean Corpuscular Hemoglobin 23.1L, Mean Corpuscular Hemoglobin Concent 29.6L, Red Cell Distribution Width 17.0H, Platelet Count 791H, Mean Platelet Volume 5.4L, Neutrophils (%) (Auto) , Lymphocytes (%) (Auto) , Monocytes (%) (Auto) , Eosinophils (%) (Auto) , Basophils (%) (Auto) , Differential Total Cells Counted 100, Neutrophils % ( Manual) 73, Lymphocytes % (Manual) 17L, Monocytes % (Manual) 9, Eosinophils % ( Manual) 0, Basophils % (Manual) 1, Band Neutrophils 0, Platelet Estimate IncreasedH, Platelet Morphology Normal, Anisocytosis 1+, Microcytosis 1+, Sodium Level 134L, Potassium Level 3.8, Chloride Level 95L, Carbon Dioxide Level 26, Anion Gap 14, Blood Urea Nitrogen 76H, Creatinine 4.4H, Estimat Glomerular Filtration Rate 13.1, Glucose Level 196H, Calcium Level 10.7H, Total Bilirubin 0.5, Aspartate Amino Transf (AST/SGOT) 137H, Alanine Aminotransferase (ALT/SGPT) 112H, Alkaline Phosphatase 319H, Total Protein 11.1H, Albumin 2.5L, Globulin 8.6, Albumin/Globulin Ratio 0.3L 10/22/19 11:19: POC Whole Blood Glucose [Pending] 10/22/19 16:53: POC Whole Blood Glucose [Pending] Height (Feet): 5 Height (Inches): 10.00 Weight (Pounds): 123 Objective Debilitated AA man NCAT (+) trach coarse BS RR abd less distended, anasarca, (+) GT, (+) rectal tube ext contracted Ronny Mustafa MD Oct 22, 2019 22:30
[2019-10-23] VITALS: BP 120/52
[2019-10-23] MEDS: NovoLOG Insulin Flexpen SUBQ SCH ×5 (00:53→23:40)
[2019-10-23 04:00] VITALS: BP 125/69
--- NOTE | 2019-10-23 07:10 | NUR ---
NURSE NOTES: received patient report from ambreen wright. patient is on bed asleep. on vent at prescribed rate. no acute events last night. afebrile. gtube off 06-10a. bed is low and locked for safety. will follow plan of care.
--- NOTE | 2019-10-23 07:17 | NUR ---
NURSE HAND-OFF REPORT: Important Events on Shift: N/A Patient Status: Stable Diet: Nepro Pending Orders: N Pending Results/Labs: N Pending MD notification: N Latest Vital Signs: Temperature 99.0 , Pulse 82 , B/P 125 /69 , Respiratory Rate 20 , O2 SAT 100 , Mechanical Ventilator, O2 Flow Rate 15.0 . Vital Sign Comment: EKG Rhythm: SR w/ BBB, Vpaicng Rhythm change?: N MD Notified?: N - MD Response: Latest Delacruz Fall Score: 70 Fall Risk: High Risk Safety Measures: Call light Within Reach, Bed Alarm Zone 2, Side Rails Side Rails x2, Bed position Low and Locked. Fall Precautions: Yellow Socks Yellow Gown Patient Fall Education Report given to TAMICA Olvera.
[2019-10-23 07:30] LABS: ALANINE AMINOTRANSFERASE 137 U/L (12-78); ALBUMIN 2.1 G/DL (3.4-5.0); ALKALINE PHOSPHATASE 316 U/L (46-116); ASPARTATE AMINO TRANSFERASE 159 U/L (15-37); BILIRUBIN,DIRECT 0.2 MG/DL (0.0-0.3); BILIRUBIN,TOTAL 0.4 MG/DL (0.2-1.0); CREATINE KINASE 473 U/L (26-308)
[2019-10-23 07:37] LABS: % IRON SATURATION 13 % (15-50); IRON 20 ug/dL (50-175); TOTAL IRON BINDING CAPACITY 151 ug/dL (250-450)
[2019-10-23 08:00] VITALS: BP 100/55
[2019-10-23] MEDS: Lactobacillus-GG tablet GT SCH ×2 (08:15→20:32)
[2019-10-23] MEDS: Metoprolol Tartrate 100mg tab GT SCH ×2 (08:16→20:32)
[2019-10-23] MEDS: Minoxidil 2.5mg tab GT SCH (08:16)
[2019-10-23] MEDS: Zinc Oxide Oint 2oz TOPIC SCH ×2 (08:17→20:32)
--- NOTE | 2019-10-23 08:29 | General Progress Note ---
Assessment/Plan Assessment/Plan: IMPRESSION: 1. anemia. 2. fevers improved 3. Leukocytosis. 4. hypotension 5. Acute on chronic renal failure. 6. Hyponatremia. 7. Severe protein-calorie malnutrition. 8. Significantly elevated C-reactive protein concerning for infectious etiology. 9. Tracheostomy, G-tube. 10. Ventilator dependence. 11. anasarca 12. Hematuria 13. V pacing 14. hyponatremia 15. transaminitis, HIDA negative PLAN chronic care; unable to place care noted on vent/ no wean monitor labs and optimize ID follow up dialysis ongoing prognosis poor for recovery impression, plan, and exam edited and reviewed in detail care discussed with RN Subjective Allergies: Coded Allergies: No Known Allergies (Unverified , 06/10/19) Subjective remains ill on vent/ no change on HD vitals noted Objective Last 24 Hour Vital Signs Date Time Temp Pulse Resp B/P (MAP) Pulse Ox O2 Delivery O2 Flow Rate FiO2 10/23/19 08:16 104 100/55 10/23/19 08:16 100/55 10/23/19 08:00 98.6 104 19 100/55 (70) 100 10/23/19 07:22 103 17 24 10/23/19 04:00 Mechanical Ventilator 10/23/19 04:00 99.0 82 20 125/69 (87) 100 10/23/19 04:00 24 10/23/19 03:40 97 10/23/19 03:30 83 16 24 10/23/19 00:00 78 10/23/19 00:00 Mechanical Ventilator 10/23/19 00:00 98.9 77 20 120/52 (74) 100 10/22/19 23:00 77 15 24 10/22/19 21:53 102 121/63 10/22/19 20:00 24 10/22/19 20:00 98.1 102 20 121/63 (82) 100 10/22/19 20:00 Mechanical Ventilator 10/22/19 19:32 84 10/22/19 19:00 76 16 24 10/22/19 16:00 Mechanical Ventilator 10/22/19 16:00 86 10/22/19 16:00 98.6 77 21 107/53 (71) 99 10/22/19 16:00 24 10/22/19 15:05 79 14 24 10/22/19 12:00 Mechanical Ventilator 10/22/19 12:00 24 10/22/19 12:00 100 10/22/19 11:31 98.2 97 18 102/57 (72) 100 10/22/19 10:45 99 14 24 10/22/19 08:57 95 103/53 10/22/19 08:56 103/53 Intake and Output 10/22/19 10/23/19 19:00 07:00 Intake Total 485 ml 545 ml Balance 485 ml 545 ml Free Water 80 ml 50 ml Tube Feeding 405 ml 495 ml # Voids 2 Laboratory Tests 10/22/19 11:19: POC Whole Blood Glucose [Pending] 10/22/19 16:53: POC Whole Blood Glucose [Pending] 10/23/19 00:51: POC Whole Blood Glucose 200H 10/23/19 04:38: CSF Herpes Simplex II DNA (PCR) [Pending], Iron Level 20L, Total Iron Binding Capacity 151L, Percent Iron Saturation 13L, Unsaturated Iron Binding 131, Total Bilirubin 0.4, Direct Bilirubin 0.2, Aspartate Amino Transf (AST/SGOT) 159H, Alanine Aminotransferase (ALT/SGPT) 137H, Alkaline Phosphatase 316H, Total Creatine Kinase 473H, Total Protein 8.7H, Albumin 2.1L, Anti-Nuclear Antibody Screen [Pending], Cytomegalovirus DNA Qual (PCR) [Pending], Keith-Rahman Virus Capsid Ag IgM Ab [Pending], Herpes Simplex Virus I DNA (PCR) [Pending] Height (Feet): 5 Height (Inches): 10.00 Weight (Pounds): 123 Objective GENERAL: Ill-appearing male, chronically debilitated. HEENT: Tracheostomy in midline. Questionable fullness in the submandibular region. LUNGS: Coarse breath sounds. reduced breath sounds CARDIAC: S1, S2. Regular rate and rhythm. borderline tachy ABDOMEN: Soft. G-tube. EXTREMITIES: With noted edema. NEUROLOGICAL: Poorly responsive, weak diffusely. Kain Ramirez MD Oct 23, 2019 08:29
--- NOTE | 2019-10-23 10:36 | Hematology/Onc Progress Note ---
Assessment/Plan Assessment/Plan Assessment/recs # Anemia due to chronic disease/kidney disease as well, gi bleed + occult + noted --> was on iron in the past, now on hold --> has been started on Epogen sq --> as per renal care --> egd done and shows gastritis --> on ppi --> egd showed gastritis, colo recently done --> hgb 9-->8.7-->7.6-->9.2-->8.9-->9.2->9.3-->8.8->9.9-->9.2-->8.1-->8.7-->7.9- ->8.6-->8.9-->8.2->9-->9.3->8.9-->9.5-->10.6->9.2-->10->8.9-->8.3-->8.9-->9.9--> 9.3-->9-->9.3->11 --> spep ordered->wnl # Leukocytosis - with multiple infections, VRE UTI, flow is negative --> wbc trend 33-->28-->25->23->22->23->24->17.3-->17-->14->16-->15.6-->14-->14- >13->19->18->17->22->22->19->17-->18->20-->15-->14->16-->14-->17->18-->17->15--> 16-->17 --> on abx, linezolid and zosyn--> zosyn-->gent-->off --> + blood cultures with coag neg staph likely contaminated --> as per id recs --> has ordered a flow cytometry (with pathology) --> does show increased nK cell activity --> JOURDAN 2 and bcr-abl labs ordered (these are send outs)->negative --> plt 585-->613-->649-->669->663-->529-->506-->620-->720 # Elevated ddimer on admission --> duplex lower legs neg for dvt # Respiratory failure --> per pulm, s/p trach --> COVID 19 test negative x 2 # Hyperlipidemia --> statin po # Dysphagia s/p gtube with nepro --> per gi # ESRD with r fem julito --> hd as per renal # Dvt ppx lovenox sq Appreciate consultation and dw Rn Subjective Constitutional: Denies: no symptoms, chills, fever, malaise, weakness, other HEENT: Denies: no symptoms, eye pain, blurred vision, tearing, double vision, ear pain, ear discharge, nose pain, nose congestion, throat pain, throat swelling, mouth pain, mouth swelling, other Cardiovascular: Denies: no symptoms, chest pain, edema, irregular heart rate, lightheadedness, palpitations, syncope, other Respiratory: Denies: no symptoms, cough, shortness of breath, SOB with excertion, SOB at rest, sputum, wheezing, other Gastrointestinal/Abdominal: Denies: no symptoms, abdomen distended, abdominal pain, black stools, tarry stools, blood in stool, constipated, diarrhea, difficulty swallowing, nausea, poor appetite, poor fluid intake, rectal bleeding , vomiting, other Genitourinary: Denies: no symptoms, burning, discharge, frequency, flank pain, hematuria, incontinence, pain, urgency, other Neurologic/Psychiatric: Denies: no symptoms, anxiety, depressed, emotional problems, headache, numbness, paresthesia, pre-existing deficit, seizure, tingling, tremors, weakness, other Endocrine: Denies: no symptoms, excessive sweating, flushing, intolerance to cold, intolerance to heat, increased hunger, increased thirst, increased urine, unexplained weight gain, unexplained weight loss, other Hematologic/Lymphatic: Denies: no symptoms, anemia, easy bleeding, easy bruising, adenopathy, other Allergies: Coded Allergies: No Known Allergies (Unverified , 06/10/19) Subjective 08/15 meds noted, no bleeding, hgb 8.8, wbc 28, path flow pending 08/16 flow pending dw pathologist, results pending, wbc 25, hgb 9 08/17 labs reviewed, meds reviewed, meds noted, no night sweats 08/19 remains obtunded, on vent/trach, no bleeding wbc 21.7 08/20 labs have been reviewed, no bleeding, wbc still elev, path reviewed 08/21 labs are noted, no bleeding, on vent, wbc better 08/22 labs noted, no bleeding, meds reviewed, wbc 24 hgb 7.6 08/23 vent, off abx, c diff negative, h/h stable 08/24 labs reviewed, on abx, wbc 17, hgb 8.9, no hemolysis 08/26 reviewed flow and is negative for leukemia, matt rn 08/27 meds reviewed, no night sweats, matt rn, no major bleeding 08/28 meds reivewed, labs noted 08/29 wbc is stable, approx 15, hgb 8.8, no hemolysis 08/30 labs are noted, is for colo today, hgb 9.9 08/31 right fem julito in place, unchanged, hgb 9.2, gi aware 09/01 labs noted, hgb 8.8, plt >600, no bleeding 09/02 labs noted, no bleeding, with elev wbc still, no new changes 09/03 meds are noted, no bleeding, labs reviewed hgb 8.6 09/04 no major events, hd as per renal, abx, no bleeding hgb low 09/05 labs are noted, no bleeding, meds have been reviewed 09/06 no new labs no hemolysis, cbc is noted, no bleeding 09/07 meds reviewed, no bleeding, matt rn, permacath functioning well 09/09 meds reviewed, wbc still elevated, as per id recs, cbc noted 09/10 is obtunded, with gutbe in place, labs reviewed 09/11 obtunded, as per id, observe now off abx, labs noted, wbc 19 09/12 cbc is pending, remains on epogen, also off abx 09/13 labs reviewed, no bleeding, elev wbc, no night sweats 09/14 meds noted, no bleeding, wbc 19, hgb 9.5, no night sweats 09/21 obtunded, remains on vent, labs noted, no bleeding, hgb 8.9 09/22 obtunded, labs noted, no bleeding, on vent, unchanged 09/23 unchanges, wbc remains elevated 20k, on abx, on vent 09/24 labs have been reviewed, no bleeding, wbc 15, may need abx 09/25 formula gtube changed, labs noted, remains obtunded, hgb 9.3 09/26 labs have been reviewed, no bleeding, matt rn, no night sweats 09/27 meds reviewed, no bleeding, wbc 14, on abx, remains obtunded 09/28 remains obtunded, no bleeding, wbc better, hgb 8.9, no hemolysis, plt 506 09/30 on colisitn, wbc elevated, cefepime added per id, hgb stable 10/01 labs reviewed, no bleeding, matt rn, no major events noted, wbc 14, hgb 10.6 10/02 labs have been noted, hgb 9.2, wbc 17, on abx, matt rn 10/03 continue on tube feeds, no bleeding, on vent, wbc remains elevated 10/04 remains ibtunded, is on a mechanical ventilator with tube feeds noted 10/05 labs are noted, hgb 8.6, wbc remains elevated, have ordered for spep 10/07 obtunded on vent, with gtube feeds, labs reviewed, matt rn 10/08 labs are noted, on vent/trach, hgb 10.2, remains obtunded 10/09 labns noted, wbc 15, hgb 8.9, remains altered, on tfs 10/10 labs noted, holding tube feeds, matt rn, hg stable 8.3 currently 10/11 remains on tfs, supportive care, labs noted, no bleeding 10/12 remains obtunded, hgb 8.9, no hemolysis is seen 10/14 labs reviewed, no bleeding, pending potential hd if rn available 10/15 is on vent, with gtube, labs reviewed, no bleeding, to get hd soon 10/16 remains on vent, matt rn at bedside, wbc 15, abx prn, plt also higher, will monitor 10/17 on vent, continue on tube feeds via gtube, labs improved 10/18 labs noted, remains on vent, and tube feeds, no major changes 10/19 nad, no bleeding, labs reviewed, no night sweats, bp elevated, cards aware 10/21 labs pending, with gtube running, on mec vent, abx off 10/22 labs reviewed, no major changes, wbc 18, plt 791k, on gtube feeds Objective Objective Current Medications Medications (Trade) Dose Ordered Sig/Leonel Route PRN Reason Start Time Stop Time Status Last Admin Dose Admin Acetaminophen (Tylenol) 650 mg Q6H PRN GT Temp >100.5 10/21/19 20:45 11/20/19 20:44 10/21/19 22:45 Chlorhexidine Gluconate (Felipa-Hex 2%) 1 applic DAILY@1999 TOPIC 09/12/19 20:00 12/11/19 19:59 10/22/19 21:52 Clonidine HCl (Catapres Tab) 0.1 mg Q4H PRN GT For High Blood Pressure 09/09/19 12:30 12/08/19 05:29 09/15/19 04:10 Dextrose (Dextrose 50%) 25 ml Q30M PRN IV Hypoglycemia 08/09/19 07:30 11/07/19 07:29 Dextrose (Dextrose 50%) 50 ml Q30M PRN IV Hypoglycemia 08/09/19 07:30 11/07/19 07:29 Diphenoxylate HCl/ Atropine (Lomotil) 2.5 mg QID PRN ORAL Diarrhea 09/24/19 08:45 10/24/19 08:44 Epoetin Andreas (Epoetin Andreas(ESRD on dialysis)) 10,000 unit WED-WED-WED SUBQ 10/09/19 21:00 01/07/20 20:59 10/20/19 20:14 Famotidine (Pepcid) 20 mg DAILY GT 08/30/19 09:00 11/28/19 08:59 10/23/19 08:15 Insulin Aspart (NovoLOG) Q6HR SUBQ 09/25/19 18:00 11/07/19 11:29 10/23/19 05:08 Lactobacillus Acidophilus (Culturelle) 1 tab EVERY 12 HOURS GT 10/03/19 21:00 12/13/19 17:59 10/23/19 08:15 Loperamide HCl (Imodium) 2 mg Q6H PRN NG Diarrhea 10/15/19 07:45 11/14/19 07:44 Metoprolol Tartrate (Lopressor) 200 mg Q12HR GT 08/09/19 09:00 11/07/19 08:59 10/22/19 21:53 Minoxidil (Loniten) 5 mg DAILY GT 08/09/19 09:00 11/07/19 08:59 10/21/19 09:11 Zinc Oxide (Zinc Oxide) 1 applic EVERY 12 HOURS TOPIC 10/03/19 09:00 11/08/19 17:59 10/23/19 08:17 Last 24 Hour Vital Signs Date Time Temp Pulse Resp B/P (MAP) Pulse Ox O2 Delivery O2 Flow Rate FiO2 10/23/19 08:16 104 100/55 10/23/19 08:16 100/55 10/23/19 08:00 98.6 104 19 100/55 (70) 100 10/23/19 08:00 Mechanical Ventilator 10/23/19 07:47 24 10/23/19 07:47 104 10/23/19 07:22 103 17 24 10/23/19 04:00 Mechanical Ventilator 10/23/19 04:00 99.0 82 20 125/69 (87) 100 10/23/19 04:00 24 10/23/19 03:40 97 10/23/19 03:30 83 16 24 10/23/19 00:00 78 10/23/19 00:00 Mechanical Ventilator 10/23/19 00:00 98.9 77 20 120/52 (74) 100 10/22/19 23:00 77 15 24 10/22/19 21:53 102 121/63 10/22/19 20:00 24 10/22/19 20:00 98.1 102 20 121/63 (82) 100 10/22/19 20:00 Mechanical Ventilator 10/22/19 19:32 84 10/22/19 19:00 76 16 24 10/22/19 16:00 Mechanical Ventilator 10/22/19 16:00 86 10/22/19 16:00 98.6 77 21 107/53 (71) 99 10/22/19 16:00 24 10/22/19 15:05 79 14 24 10/22/19 12:00 Mechanical Ventilator 10/22/19 12:00 24 10/22/19 12:00 100 10/22/19 11:31 98.2 97 18 102/57 (72) 100 10/22/19 10:45 99 14 24 10/22/19 08:57 95 103/53 10/22/19 08:56 103/53 10/22/19 08:00 97 10/22/19 08:00 Mechanical Ventilator 10/22/19 08:00 98.2 95 21 103/53 (70) 100 10/22/19 08:00 24 10/22/19 07:15 82 16 24 10/22/19 05:00 92 122/62 (82) 10/22/19 04:00 Mechanical Ventilator 10/22/19 04:00 98.2 99 16 92/47 (62) 100 10/22/19 04:00 24 10/22/19 03:37 96 10/22/19 03:06 76 18 24 10/22/19 00:00 Mechanical Ventilator 10/22/19 00:00 99.9 98 16 91/44 (60) 100 10/21/19 23:49 92 10/21/19 23:15 99.9 10/21/19 22:55 85 17 24 10/21/19 20:00 24 10/21/19 20:00 Mechanical Ventilator 10/21/19 20:00 111 132/56 10/21/19 20:00 100.9 111 15 133/64 (87) 100 10/21/19 19:30 109 10/21/19 18:45 92 17 24 10/21/19 16:38 86 10/21/19 16:00 98.3 88 14 106/53 (70) 100 10/21/19 16:00 Mechanical Ventilator 10/21/19 16:00 24 10/21/19 15:05 99 14 24 10/21/19 12:00 24 10/21/19 12:00 Mechanical Ventilator 10/21/19 12:00 79 10/21/19 12:00 99.3 13 111/58 (75) 100 10/21/19 11:05 72 14 24 Intake and Output 10/22/19 10/23/19 19:00 07:00 Intake Total 485 ml 545 ml Balance 485 ml 545 ml Free Water 80 ml 50 ml Tube Feeding 405 ml 495 ml # Voids 2 Labs Test 10/21/19 00:02 10/21/19 05:22 10/21/19 12:02 10/21/19 16:40 POC Whole Blood Glucose 192 MG/DL (74-106) 188 MG/DL (74-106) 161 MG/DL (74-106) 181 MG/DL (74-106) Test 10/22/19 00:25 10/22/19 04:51 10/22/19 05:22 10/22/19 11:19 POC Whole Blood Glucose 195 MG/DL (74-106) White Blood Count 18.7 K/UL (4.8-10.8) Red Blood Count 5.48 M/UL (4.70-6.10) Hemoglobin 12.7 G/DL (14.2-18.0) Hematocrit 42.8 % (42.0-52.0) Mean Corpuscular Volume 78 FL (80-99) Mean Corpuscular Hemoglobin 23.1 PG (27.0-31.0) Mean Corpuscular Hemoglobin Concent 29.6 G/DL (32.0-36.0) Red Cell Distribution Width 17.0 % (11.6-14.8) Platelet Count 791 K/UL (150-450) Mean Platelet Volume 5.4 FL (6.5-10.1) Neutrophils (%) (Auto) % (45.0-75.0) Lymphocytes (%) (Auto) % (20.0-45.0) Monocytes (%) (Auto) % (1.0-10.0) Eosinophils (%) (Auto) % (0.0-3.0) Basophils (%) (Auto) % (0.0-2.0) Differential Total Cells Counted 100 Neutrophils % (Manual) 73 % (45-75) Lymphocytes % (Manual) 17 % (20-45) Monocytes % (Manual) 9 % (1-10) Eosinophils % (Manual) 0 % (0-3) Basophils % (Manual) 1 % (0-2) Band Neutrophils 0 % (0-8) Platelet Estimate Increased Platelet Morphology Normal Anisocytosis 1+ Microcytosis 1+ Sodium Level 134 MMOL/L (136-145) Potassium Level 3.8 MMOL/L (3.5-5.1) Chloride Level 95 MMOL/L (98-107) Carbon Dioxide Level 26 MMOL/L (21-32) Anion Gap 14 mmol/L (5-15) Blood Urea Nitrogen 76 mg/dL (7-18) Creatinine 4.4 MG/DL (0.55-1.30) Estimat Glomerular Filtration Rate 13.1 mL/min (>60) Glucose Level 196 MG/DL (74-106) Calcium Level 10.7 MG/DL (8.5-10.1) Total Bilirubin 0.5 MG/DL (0.2-1.0) Aspartate Amino Transf (AST/SGOT) 137 U/L (15-37) Alanine Aminotransferase (ALT/SGPT) 112 U/L (12-78) Alkaline Phosphatase 319 U/L (46-116) Total Protein 11.1 G/DL (6.4-8.2) Albumin 2.5 G/DL (3.4-5.0) Globulin 8.6 g/dL Albumin/Globulin Ratio 0.3 (1.0-2.7) Test 10/22/19 16:53 10/23/19 00:51 10/23/19 04:38 POC Whole Blood Glucose 200 MG/DL (74-106) Iron Level 20 ug/dL (50-175) Total Iron Binding Capacity 151 ug/dL (250-450) Percent Iron Saturation 13 % (15-50) Unsaturated Iron Binding 131 ug/dL (112-346) Total Bilirubin 0.4 MG/DL (0.2-1.0) Direct Bilirubin 0.2 MG/DL (0.0-0.3) Aspartate Amino Transf (AST/SGOT) 159 U/L (15-37) Alanine Aminotransferase (ALT/SGPT) 137 U/L (12-78) Alkaline Phosphatase 316 U/L (46-116) Total Creatine Kinase 473 U/L (26-308) Total Protein 8.7 G/DL (6.4-8.2) Albumin 2.1 G/DL (3.4-5.0) Height (Feet): 5 Height (Inches): 10.00 Weight (Pounds): 123 Objective Physical Exam General Appearance: nad, Chronically Ill Head: normocephalic Eyes: right eye PERRL - Will not open left eye ENT: moist mucus membranes Neck: other - submandibular mass R, fairly rigid with resistance to rotation to L, tracheotomy Respiratory: decreased breath sounds, crackles, other - pacemaker, vent+ Cardiovascular: regular rate, rhythm, edema - anasarca Gastrointestinal: non tender, distended, other - G tube Genitourinary: other Musculoskeletal: other - Contractures all extremities Neurologic: sensory intact, motor weakness, responsive Psychiatric: other Skin: Decubitus/Ulcer - Stage III right elbow, stage III left elbow, stage II sacrum, stage III scrotum, warm/dry iFtz Campos MD Oct 23, 2019 10:36
--- NOTE | 2019-10-23 11:12 | Diagnostic Imaging Report ---
Procedure: XRAY Chest 1v Reason for study: Shortness of breath Comparison films: 09/29/2019. FINDINGS: Cardiac pacer, tracheostomy and right central venous catheter remain in place. Vascularity is normal. There is improved aeration particularly of the right lung. Some persistent perihilar densities seen bilaterally. Cardiac and mediastinal silhouette are within normal limits. Small left effusion remains. There is decreased right effusion. The bony thorax appear unremarkable. IMPRESSION: Improved aeration and decreased right effusion.
--- NOTE | 2019-10-23 11:40 | Infectious Diseases Prog Note ---
"Assessment/Plan Assessment/Plan antibiotics : none A 1. acenitobacter | proteus pneumonia s/p rx 2. respiratory failure 3. leucocytosis 4. COVID 19 test negative x 2 5. renal failure on HD 6. groin warts P 1. start acyclovir 2. will follow up cultures Subjective ROS Limited/Unobtainable: Yes Allergies: Coded Allergies: No Known Allergies (Unverified , 06/10/19) Objective Last 24 Hour Vital Signs Date Time Temp Pulse Resp B/P (MAP) Pulse Ox O2 Delivery O2 Flow Rate FiO2 10/23/19 11:06 92 14 24 10/23/19 08:16 104 100/55 10/23/19 08:16 100/55 10/23/19 08:00 98.6 104 19 100/55 (70) 100 10/23/19 08:00 Mechanical Ventilator 10/23/19 07:47 24 10/23/19 07:47 104 10/23/19 07:22 103 17 24 10/23/19 04:00 Mechanical Ventilator 10/23/19 04:00 99.0 82 20 125/69 (87) 100 10/23/19 04:00 24 10/23/19 03:40 97 10/23/19 03:30 83 16 24 10/23/19 00:00 78 10/23/19 00:00 Mechanical Ventilator 10/23/19 00:00 98.9 77 20 120/52 (74) 100 10/22/19 23:00 77 15 24 10/22/19 21:53 102 121/63 10/22/19 20:00 24 10/22/19 20:00 98.1 102 20 121/63 (82) 100 10/22/19 20:00 Mechanical Ventilator 10/22/19 19:32 84 10/22/19 19:00 76 16 24 10/22/19 16:00 Mechanical Ventilator 10/22/19 16:00 86 10/22/19 16:00 98.6 77 21 107/53 (71) 99 10/22/19 16:00 24 10/22/19 15:05 79 14 24 10/22/19 12:00 Mechanical Ventilator 10/22/19 12:00 24 10/22/19 12:00 100 Height (Feet): 5 Height (Inches): 10.00 Weight (Pounds): 123 HEENT: status post trach Respiratory/Chest: lungs clear Cardiovascular: normal rate, regular rhythm, no gallop/murmur Abdomen: soft, non tender, other - GT Extremities: no edema, other - right subclavian catheter Skin: rash - on groin warts Laboratory Tests Test 10/22/19 16:53 10/23/19 00:51 10/23/19 04:38 10/23/19 11:26 POC Whole Blood Glucose Pending 200 MG/DL (74-106) H 158 MG/DL (74-106) H CSF Herpes Simplex II DNA (PCR) Pending Iron Level 20 ug/dL (50-175) L Total Iron Binding Capacity 151 ug/dL (250-450) L Percent Iron Saturation 13 % (15-50) L Unsaturated Iron Binding 131 ug/dL (112-346) Total Bilirubin 0.4 MG/DL (0.2-1.0) Direct Bilirubin 0.2 MG/DL (0.0-0.3) Aspartate Amino Transf (AST/SGOT) 159 U/L (15-37) H Alanine Aminotransferase (ALT/SGPT) 137 U/L (12-78) H Alkaline Phosphatase 316 U/L (46-116) H Total Creatine Kinase 473 U/L (26-308) H Total Protein 8.7 G/DL (6.4-8.2) H Albumin 2.1 G/DL (3.4-5.0) L Anti-Nuclear Antibody Screen Pending Cytomegalovirus DNA Qual (PCR) Pending Keith-Rahman Virus Capsid Ag IgM Ab Pending Herpes Simplex Virus I DNA (PCR) Pending Current Medications Medications (Trade) Dose Ordered Sig/Leonel Route PRN Reason Start Time Stop Time Status Last Admin Dose Admin Acetaminophen (Tylenol) 650 mg Q6H PRN GT Temp >100.5 10/21/19 20:45 11/20/19 20:44 10/21/19 22:45 Chlorhexidine Gluconate (Felipa-Hex 2%) 1 applic DAILY@1999 TOPIC 09/12/19 20:00 12/11/19 19:59 10/22/19 21:52 Clonidine HCl (Catapres Tab) 0.1 mg Q4H PRN GT For High Blood Pressure 09/09/19 12:30 12/08/19 05:29 09/15/19 04:10 Dextrose (Dextrose 50%) 25 ml Q30M PRN IV Hypoglycemia 08/09/19 07:30 11/07/19 07:29 Dextrose (Dextrose 50%) 50 ml Q30M PRN IV Hypoglycemia 08/09/19 07:30 11/07/19 07:29 Diphenoxylate HCl/ Atropine (Lomotil) 2.5 mg QID PRN ORAL Diarrhea 09/24/19 08:45 10/24/19 08:44 Enoxaparin Sodium (Lovenox) 30 mg DAILY SUBQ 10/24/19 09:00 01/22/20 08:59 Epoetin Andreas (Epoetin Andreas(ESRD on dialysis)) 10,000 unit WED-WED-WED SUBQ 10/09/19 21:00 01/07/20 20:59 10/20/19 20:14 Famotidine (Pepcid) 20 mg DAILY GT 08/30/19 09:00 11/28/19 08:59 10/23/19 08:15 Insulin Aspart (NovoLOG) Q6HR SUBQ 09/25/19 18:00 11/07/19 11:29 10/23/19 05:08 Lactobacillus Acidophilus (Culturelle) 1 tab EVERY 12 HOURS GT 10/03/19 21:00 12/13/19 17:59 10/23/19 08:15 Loperamide HCl (Imodium) 2 mg Q6H PRN NG Diarrhea 10/15/19 07:45 11/14/19 07:44 Metoprolol Tartrate (Lopressor) 200 mg Q12HR GT 08/09/19 09:00 11/07/19 08:59 10/22/19 21:53 Minoxidil (Loniten) 5 mg DAILY GT 08/09/19 09:00 11/07/19 08:59 10/21/19 09:11 Zinc Oxide (Zinc Oxide) 1 applic EVERY 12 HOURS TOPIC 10/03/19 09:00 11/08/19 17:59 10/23/19 08:17 Farnaz Lyle MD Oct 23, 2019 11:40"
[2019-10-23 12:00] VITALS: BP 99/48
[2019-10-23] MEDS: Acyclovir 200mg Cap ORAL SCH ×2 (13:40→20:32)
--- NOTE | 2019-10-23 14:14 | Nephrology Progress Note ---
Assessment/Plan Plan MOF ESRD - HD now MWF Anemia of CKD -TUYET. Subjective Subjective Obtunded Objective Objective Last 24 Hour Vital Signs Date Time Temp Pulse Resp B/P (MAP) Pulse Ox O2 Delivery O2 Flow Rate FiO2 10/23/19 11:06 92 14 24 10/23/19 08:16 104 100/55 10/23/19 08:16 100/55 10/23/19 08:00 98.6 104 19 100/55 (70) 100 10/23/19 08:00 Mechanical Ventilator 10/23/19 07:47 24 10/23/19 07:47 104 10/23/19 07:22 103 17 24 10/23/19 04:00 Mechanical Ventilator 10/23/19 04:00 99.0 82 20 125/69 (87) 100 10/23/19 04:00 24 10/23/19 03:40 97 10/23/19 03:30 83 16 24 10/23/19 00:00 78 10/23/19 00:00 Mechanical Ventilator 10/23/19 00:00 98.9 77 20 120/52 (74) 100 10/22/19 23:00 77 15 24 10/22/19 21:53 102 121/63 10/22/19 20:00 24 10/22/19 20:00 98.1 102 20 121/63 (82) 100 10/22/19 20:00 Mechanical Ventilator 10/22/19 19:32 84 10/22/19 19:00 76 16 24 10/22/19 16:00 Mechanical Ventilator 10/22/19 16:00 86 10/22/19 16:00 98.6 77 21 107/53 (71) 99 10/22/19 16:00 24 10/22/19 15:05 79 14 24 Intake and Output 10/22/19 10/23/19 18:59 06:59 Intake Total 400 ml 630 ml Balance 400 ml 630 ml Free Water 40 ml 90 ml Tube Feeding 360 ml 540 ml # Voids 2 Laboratory Tests 10/22/19 16:53: POC Whole Blood Glucose [Pending] 10/23/19 00:51: POC Whole Blood Glucose 200H 10/23/19 04:38: CSF Herpes Simplex II DNA (PCR) [Pending], Iron Level 20L, Total Iron Binding Capacity 151L, Percent Iron Saturation 13L, Unsaturated Iron Binding 131, Total Bilirubin 0.4, Direct Bilirubin 0.2, Aspartate Amino Transf (AST/SGOT) 159H, Alanine Aminotransferase (ALT/SGPT) 137H, Alkaline Phosphatase 316H, Total Creatine Kinase 473H, Total Protein 8.7H, Albumin 2.1L, Anti-Nuclear Antibody Screen [Pending], Cytomegalovirus DNA Qual (PCR) [Pending], Keith-Rahman Virus Capsid Ag IgM Ab [Pending], Herpes Simplex Virus I DNA (PCR) [Pending] 10/23/19 05:06: POC Whole Blood Glucose [Pending] 10/23/19 11:26: POC Whole Blood Glucose 158H Height (Feet): 5 Height (Inches): 10.00 Weight (Pounds): 123 Objective CV RR Trach clean Lungs CTA Perma Cath RIJ. Abd SNT. BS + E No ADELAIDAE Erica Pichardo MD Oct 23, 2019 14:14
--- NOTE | 2019-10-23 14:52 | NUR ---
CASE MANAGEMENT:REVIEW SI;SEPSIS. PNA. 99.0 104 20 100/55 100% TRACH/VENT FIO2 @ 24% AST 159 ALT 137 ALP 316 TCK 473 ALB 2.1 IS;ACYCLOVIR GT Q12 CULTURELLE GT Q12 LOPRESSOR GT Q12 LONITEN GT QD PEPCID GT QD INSULIN NOVOLOG SUBQ Q6 ZINC OXIDE TOP Q12 EPOETIN NATE SUBQ M-W- KEREN STATUS DCP;SUB ACUTE PLACEMENT PENDING AUTH FROM INSURANCE ([facility])
--- NOTE | 2019-10-23 15:02 | NUR ---
*-* INSURANCE *-* UPDATED CLINICALS AND REVIEWS HAVE BEEN FAXED TO: [facility] REF# [id number] RIC:HARPER P:[phone] F:[phone]
--- NOTE | 2019-10-23 15:46 | NUR ---
[employer] NOTE S/W HARPER AT [facility] WHO INFORMED THIS CM THAT NEGOTIATION FOR PLACEMENT IS ACTIVE AND ONGOING. PER HARPER, STATED GILBERTO PREVIOUSLY REJECTED [facility] FROM [facility] AND THEREFORE WAS CANCELLED APPROX 2 WEEKS AGO. SHE INFORMED NO NEED FOR DAILY CALLS TO [facility] [employer] CLINICALS CONTINUE TO BE RECEIVED. ONCE AN AGREEMENT WITH A FACILITY HAS BEEN REACHED, [facility] [place] WILL BE NOTIFIED BY [employer].
[2019-10-23 16:00] VITALS: BP 114/58
--- NOTE | 2019-10-23 16:41 | Surgery Progress Note ---
Surgery Progress Note Subjective Procedure Performed Right femoral temporary hemodialysis catheter removal Additional Comments cxr reviewed exam stable on support worsening wbc plt noted Objective Last 24 Hour Vital Signs Date Time Temp Pulse Resp B/P (MAP) Pulse Ox O2 Delivery O2 Flow Rate FiO2 10/23/19 16:00 24 10/23/19 16:00 Mechanical Ventilator 10/23/19 15:40 85 18 24 10/23/19 12:00 98.1 95 20 99/48 (65) 100 10/23/19 12:00 24 10/23/19 12:00 Mechanical Ventilator 10/23/19 11:59 90 10/23/19 11:06 92 14 24 10/23/19 08:16 104 100/55 10/23/19 08:16 100/55 10/23/19 08:00 98.6 104 19 100/55 (70) 100 10/23/19 08:00 Mechanical Ventilator 10/23/19 07:47 24 10/23/19 07:47 104 10/23/19 07:22 103 17 24 10/23/19 04:00 Mechanical Ventilator 10/23/19 04:00 99.0 82 20 125/69 (87) 100 10/23/19 04:00 24 10/23/19 03:40 97 10/23/19 03:30 83 16 24 10/23/19 00:00 78 10/23/19 00:00 Mechanical Ventilator 10/23/19 00:00 98.9 77 20 120/52 (74) 100 10/22/19 23:00 77 15 24 10/22/19 21:53 102 121/63 10/22/19 20:00 24 10/22/19 20:00 98.1 102 20 121/63 (82) 100 10/22/19 20:00 Mechanical Ventilator 10/22/19 19:32 84 10/22/19 19:00 76 16 24 I&O Intake and Output 10/22/19 10/23/19 19:00 07:00 Intake Total 485 ml 545 ml Balance 485 ml 545 ml Free Water 80 ml 50 ml Tube Feeding 405 ml 495 ml # Voids 2 Dressing: other Wound: other Cardiovascular: RSR Respiratory: decreased breath sounds Abdomen: soft, non-tender, present bowel sounds Extremities: no tenderness, no cyanosis, other Laboratory Tests Test 10/22/19 16:53 10/23/19 00:51 10/23/19 04:38 10/23/19 05:06 POC Whole Blood Glucose Pending 200 MG/DL (74-106) H Pending CSF Herpes Simplex II DNA (PCR) Pending Iron Level 20 ug/dL (50-175) L Total Iron Binding Capacity 151 ug/dL (250-450) L Percent Iron Saturation 13 % (15-50) L Unsaturated Iron Binding 131 ug/dL (112-346) Total Bilirubin 0.4 MG/DL (0.2-1.0) Direct Bilirubin 0.2 MG/DL (0.0-0.3) Aspartate Amino Transf (AST/SGOT) 159 U/L (15-37) H Alanine Aminotransferase (ALT/SGPT) 137 U/L (12-78) H Alkaline Phosphatase 316 U/L (46-116) H Total Creatine Kinase 473 U/L (26-308) H Total Protein 8.7 G/DL (6.4-8.2) H Albumin 2.1 G/DL (3.4-5.0) L Anti-Nuclear Antibody Screen Pending Cytomegalovirus DNA Qual (PCR) Pending Keith-Rahman Virus Capsid Ag IgM Ab Pending Herpes Simplex Virus I DNA (PCR) Pending Test 10/23/19 11:26 10/23/19 15:54 POC Whole Blood Glucose 158 MG/DL (74-106) H 192 MG/DL (74-106) H Plan Problems: (1) Anemia (2) Hyponatremia (3) Leukocytosis Assessment & Plan: Tracheostomy, left chest pacemaker are again demonstrated. There is bilateral interstitial and airspace disease and bilateral pleural fluid again demonstrated. This appears more severe than on the prior study. Bilateral interstitial and airspace infiltrates versus edema. Bilateral pleural effusions Leukocytosis, anemia, tachycardia, abnormal labs. Wound evaluated and likely etiology of patient's sepsis. Leukocytosis etiology work-up antibiotics per infectious disease Appreciate nephrology input transfuse with dialysis We will follow with recommendations thank you allowing participation's care plan HD access temp HD discussed with medical teams line okay HD as per renal persistent leukocytosis flow cyto noted improving trending down right fem line removed wbc fluctuating h/h stable lft's elevated There is a right pleural effusion Gallbladder demonstrates tiny wall adherent nonmobile echogenic foci, some possible mural calcifications, and comet tail artifact in the anterior wall. Patient unable to report sonographic Kent's sign. Common bile duct measures 4 mm in diameter. No intrahepatic biliary ductal dilatation. Liver demonstrates normal echogenicity, no focal abnormality. There is some surface nodularity. Portal vein and hepatic veins are patent. Pancreas is incompletely visualized due to overlying bowel gas, visualized portions are unremarkable. Spleen is unremarkable. Left kidney measures 8.7 cm in length. Right kidney measures 8.9 cm length. Both kidneys demonstrate increased echogenicity. There is no hydronephrosis. No focal abnormality . Abdominal aorta is partially obscured by bowel gas, visualized portions are non-aneurysmal . A gastrostomy is noted Impression: Tiny wall adherent nonmobile gallbladder echogenic foci, may reflect wall adherent calculi, small polyps, and/or pleural calcifications. Anterior wall comet tail artifact suggests foci of adenomyomatosis. Normal caliber common bile duct Possible hepatic surface nodularity, could indicate cirrhotic change Echogenic kidneys, consistent with medical renal disease. No hydronephrosis Right pleural effusion Gastrostomy Note nonvisualization of portions of the pancreas and abdominal aorta HIDA NEGATIVE trend labs (4) Ventilator dependent (5) Right lower lobe pneumonia (6) Hypokalemia (7) Hyperkalemia (8) Anasarca (9) Decubitus skin ulcer Assessment & Plan: pt presented on admission with generalized edemae.Skin assessed under tracheostomy and no areas of concerns noted. GT Insertion is marginally erythematous with small amt slough at stoma. Unstageable Pressure Injury R elbow. Base of wound is 100% yellow slough, Borders are erythematous. Wound oozing small amt haemopurulent exudate.Darker skin tone without elevation in skin temp or erythema periwound. Pt's penis and scrotum are grossly edematous and enlarged and weeping serous exudate from numerous sites both from penis and scrotum. Two small open wounds noted at base of at base of shaft of penis ,and contreras aspect of scrotum. Both wounds oozing large amt sanguineous and serosanguineous exudate. Multiple open wounds with Biofilm at base of each wounds noted to contreras/lateral,inferior and posterior aspects of scrotum. These wounds noted to be oozing moderate amts of serosanguineous exudate. Hypertrophic scar with scattered areas of hyperpigmentation noted to Sacrum. DTPI noted to L Buttocks (L)7cm x (W)9cm. Base of wound is purple and indurated.Darker skin tone without erythema, induration or fluctuance R and L ischial tuberosities. Both heels are boggy with non-blanchable erythema. Tx.Plan: Cleanse wound R elbow with Saline. Apply TheraHoney, Apply Moisture Barrier Paste periwound. Cover with Optifoam drsg.Change Daily and prn. Wash GT site with soap and water.Pat dry. Apply Zinc Oxide Paste to GT site Daily. Leave Open to Air. Apply Zinc Oxide Paste to entire Scrotum, Place ABD pads to R and L lateral, and posterior aspects of scrotum TWICE daily. Apply Cavilon Skin Barrier to malleoli and both Heels. Cover each site with Optifoam drsgs. Change every 7 days and prn. Reposition at least every 2hours or as tolerated. Off-load heels with Pillows. APM/BECCA Mattress overlay. (10) Malnutrition Assessment & Plan: DAILY ESTIMATED NEEDS: Needs based on Renal, critical care, wound/ 61kg 22-30 kcals/kg [id number] total kcals 1.25-2 g protein/kg 76-122 g total protein Fluid per MD, now on HD NUTRITION DIAGNOSIS: * Swallowing difficulty R/T respiratory failure, dysphagia as evidenced by trach/vent dep, PEG dep * Increased kcal/prot needs R/T wound healing as evidenced by admitted w/ multiple pressure injuries including full thickness wounds at junction of Shaft of penis, dorsal scrotum, R elbow, and DTPI @ L buttocks. CURRENT TF:Osmolite 1.2 @ 60ml/hr x 20 hrs + Garo BID ENTERAL NUTRITION RECOMMENDATIONS: Vital AF 1.2 @ 60ml/hr x 20 hrs to provide 1200ml, 1440kcal, 90g prot, 973ml free water * Rec 20 hr run time for GI rest. -> W/ improved GI status, rec Vital AF 1.2, an elemental and carb controlled TF -> monitor lytes and renal fxn closely, monitor need for renal TF -> TF @ goal will provide 1642mg K and 2025mg Phos -> HOB over 30 degrees/ water flush per MD -------- Trial of Osmolite 1.2 continue for now- Goal of 60ml/hr for 20 hrs (4 hrs bowel rest) to provide 1200ml, 1440 kcal, 67g pro, 984ml free H2O, -> Rec to add prosource 1 pack daily (11g pro) to better meet est pro needs. -> Monitor BG, K closely. Pt would require increased insulin coverage as TF at goal would provide 56g more carbs per day. ADDITIONAL RECOMMENDATIONS: * Per SNF: HT=63" MZ=403 lbs (vs EMR wt of 166lbs) -> obtain re-calibrated bedscale wt, rec daily wt monitoring * Wound healing: con't Nephrovite + Garo BID/ Vit C dosing per Nephro * Monitor renal fxn and lytes closely w/ non-renal TF ->K low, phos wnl;updated mag level; rec increased insulin w/ BG labs * Daily wts w/ drop to 118-20 lbs, rec to recalibrate for accurate CBW * Consider DC Miralax if medically appropriate: +rectal tube (11) Uremia (12) CKD (chronic kidney disease) stage 5, GFR less than 15 ml/min (13) Colon distention Assessment & Plan: discussed with GI likely functional as having lots of loose bm rectal tube kub f/u s/p colonoscopy - findings reviewed with GI improved cont diet as tolerated Marked distention of the sigmoid colon. 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 No evidence of bowel wall thickening or pneumatosis 12 mm focus of contrast enhancement in the right pectineus muscle. While nonspecific in appearance, appearance raises concern for a possible pseudoaneurysm. Ill- defined thickening of the pectus medius muscle could indicate some intramuscular hemorrhage. The above findings were phoned to Dr. Urias at the time of interpretation Large bilateral pleural effusions Hazy pulmonary parenchymal opacities as well as dense consolidative opacities most likely represent pulmonary edema, but could represent pneumonia Evidence of anasarca elsewhere, with generalized edema of the subcutaneous fat Bladder wall thickening, raises concern for cystitis. Avalos catheter in place Colonic diverticulosis. No evidence of diverticulitis. Tracheostomy Pacemaker Gastrostomy Gastrostomy again demonstrated in satisfactory position. The stomach is otherwise unremarkable. The distal esophagus and duodenum are unremarkable. Ingested contrast reaches the colon. No small bowel distention or small bowel wall thickening. Interim placement of a rectal tube. There are a few colonic diverticula. No definite evidence of acute diverticulitis. The appendix is prominent in caliber, as previously No free or loculated intraperitoneal gas or fluid is evident. Again demonstrated is marked gaseous distention of the sigmoid colon which measures up to 12.6 cm in diameter, with the proximal aspect located laterally to the distal aspect, and caliber transition in the mesenteric root of both entry points. However, there is stool within the proximal portion which appears to be at least partially contrast opacified, and no definite persisting of the vascular pedicle demonstrated. The liver, gallbladder, bile ducts, pancreas, spleen, adrenals, kidneys are unremarkable. There are accessory splenules demonstrated. No retroperitoneal or mesenteric mass or adenopathy. No pelvic mass or adenopathy. The prostate is enlarged and protrudes into the inferior bladder. The bladder is thick-walled. Previously demonstrated Avalos catheter has been removed. Again demonstrated is a large right pleural effusion and a moderate to large left pleural effusion. Again demonstrated are compressive atelectatic changes of significant portions of both lower lobes. Pacemaker wires are seen within the heart. Previously demonstrated high attenuation focus within the right pectineus muscle is not evident. However, there is a low-attenuation area which measures 2 cm diameter centrally which is not evident previously. There is diffuse edema of the subcutaneous fat. This is less severe than was demonstrated previously. There are degenerative proliferative changes of the lumbar spine. Impression: Abnormal configuration of the sigmoid colon, with marked distention of a sigmoid, inversion of the relationships of the proximal and descending colon, and evidence of immediately apposed transition point raises concern for sigmoid volvulus. However, similarity to the prior exam, presence of what appears to be contrast opacified stool within the dilated segment, and lack of evidence of twisting of the vascular pedicle raises the possibility that this is baseline for this patient or possibly dysfunctional in nature. Correlate with clinical findings Enlarged prostate with protrusion into the bladder floor. Bladder neoplasm not completely excludable as a result Thick-walled bladder, may indicate cystitis or be due to chronic bladder lumen obstruction related to the above Abnormalities right pectineus muscle, with a 2 cm central low attenuation area. Note that previous exam have a high attenuation focus suspicious for a small pseudoaneurysm. 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 Colonic diverticulosis. No evidence of diverticulitis Gastrostomy in good position Rectal tube in good position Large right and moderate to large left pleural effusions. Resultant compressive pulmonary atelectatic changes or graft edema subcutaneous fat, less severe than was demonstrated on prior 08/17/2019 exam. Jonathan Urias Oct 23, 2019 16:41
--- NOTE | 2019-10-23 19:15 | NUR ---
NURSE NOTES: Received report from May DAVEY. Patient asleep, afebrile and no respiratory distress. V paced on 5 lead quality assurance monitor body. On [facility] vent P8, ac 12, TV 550, FiO2 24%, peep 5. Noted also right upper chest dialysis catheter intact and asymptomatic. Dressing intact and clean. With left FA 20 IV line intact, patent and asymptomatic. On Nephro 45cc/hr x 20 hrs via GT intact and infusing well. Hemodialysis ongoing right now. Pt is stable. VS WNL Needs were attended. HOB elevated. Bed rails are up and wheels are locked. Call light within reach. Continue plan of care.
--- NOTE | 2019-10-23 19:27 | NUR ---
"NURSE NOTES: Pt obtunded upon assessment. OMER. Pt contracted and resistive to care. Hypotensive during shift with systolic in the 80's. Elevated lower extremities. 5-lead EKG shows V-pacing Vent A/C 12 | Vt 550 | 24% fiO2 saturating at 99% G-tube patent and intact with 0 residual running Nepro at 45. Made aware of alterations in skin integrity. Bed kept in lowest and locked position. Bed alarm on. Will continue monitoring. Addendum: 10/25/19 at 0007 by Luisa Emmanuel RN Wrong Date. Should be for 10/24/2019 at 1930"
[2019-10-23 20:00] VITALS: BP 110/54
[2019-10-23] MEDS: Dyna-Hex 2% Top Sol 2oz TOPIC SCH (20:31)
--- NOTE | 2019-10-23 20:32 | General Progress Note ---
Assessment/Plan Assessment/Plan: Assessment - abdominal distention, due to colonic dysmotility, - colonoscopy negative to hepatic flexure - diarrhea - presumed TF related - abnormal LFT - ? etiology --> HIDA negative and CT negative - Anemia - leukocytosis - stool OB (+) - EGD --> gastritis - Renal failure - Anasarca - resp failure, trach - b/l pleural effusions - dysphagia, GT - encephalopathy, contracted - poor px Recommendations - continue TF - check hepatitis markers - rectal tube - roll side to side as feasible (hard due to severe contractions) - Elevate HOB - f/u labs - PPI - abx - supportive care Subjective Allergies: Coded Allergies: No Known Allergies (Unverified , 06/10/19) Subjective above noted NAD on TF LFT higher today Objective Last 24 Hour Vital Signs Date Time Temp Pulse Resp B/P (MAP) Pulse Ox O2 Delivery O2 Flow Rate FiO2 10/23/19 16:00 24 10/23/19 16:00 97.3 94 18 114/58 (76) 100 10/23/19 16:00 Mechanical Ventilator 10/23/19 16:00 99 10/23/19 15:40 85 18 24 10/23/19 12:00 98.1 95 20 99/48 (65) 100 10/23/19 12:00 24 10/23/19 12:00 Mechanical Ventilator 10/23/19 11:59 90 10/23/19 11:06 92 14 24 10/23/19 08:16 104 100/55 10/23/19 08:16 100/55 10/23/19 08:00 98.6 104 19 100/55 (70) 100 10/23/19 08:00 Mechanical Ventilator 10/23/19 07:47 24 10/23/19 07:47 104 10/23/19 07:22 103 17 24 10/23/19 04:00 Mechanical Ventilator 10/23/19 04:00 99.0 82 20 125/69 (87) 100 10/23/19 04:00 24 10/23/19 03:40 97 10/23/19 03:30 83 16 24 10/23/19 00:00 78 10/23/19 00:00 Mechanical Ventilator 10/23/19 00:00 98.9 77 20 120/52 (74) 100 10/22/19 23:00 77 15 24 10/22/19 21:53 102 121/63 Intake and Output 10/22/19 10/23/19 19:00 07:00 Intake Total 485 ml 545 ml Balance 485 ml 545 ml Free Water 80 ml 50 ml Tube Feeding 405 ml 495 ml # Voids 2 Laboratory Tests 10/23/19 00:51: POC Whole Blood Glucose 200H 10/23/19 04:38: CSF Herpes Simplex II DNA (PCR) [Pending], Iron Level 20L, Total Iron Binding Capacity 151L, Percent Iron Saturation 13L, Unsaturated Iron Binding 131, Total Bilirubin 0.4, Direct Bilirubin 0.2, Aspartate Amino Transf (AST/SGOT) 159H, Alanine Aminotransferase (ALT/SGPT) 137H, Alkaline Phosphatase 316H, Total Creatine Kinase 473H, Total Protein 8.7H, Albumin 2.1L, Anti-Nuclear Antibody Screen [Pending], Cytomegalovirus DNA Qual (PCR) [Pending], Keith-Rahman Virus Capsid Ag IgM Ab [Pending], Herpes Simplex Virus I DNA (PCR) [Pending] 10/23/19 05:06: POC Whole Blood Glucose [Pending] 10/23/19 11:26: POC Whole Blood Glucose 158H 10/23/19 15:54: POC Whole Blood Glucose 192H Height (Feet): 5 Height (Inches): 10.00 Weight (Pounds): 123 Objective Debilitated AA man NCAT (+) trach coarse BS RR abd less distended, anasarca, (+) GT, (+) rectal tube ext contracted Ronny Mustafa MD Oct 23, 2019 20:32
--- NOTE | 2019-10-23 20:34 | NUR ---
NURSE NOTES: HD done 2L out. VS WNL, BP is in low boundary. Asymptomatic. Continue to monitor the patient.
[2019-10-24] VITALS (8 sets, daily range): BP systolic 84–124; BP diastolic 41–69
[2019-10-24 04:59] LABS: ALBUMIN/GLOBULIN RATIO 0.3 (1.0-2.7); BILIRUBIN,TOTAL 0.5 MG/DL (0.2-1.0); CALCIUM 6.9 MG/DL (8.5-10.1); POTASSIUM 3.9 MMOL/L (3.5-5.1)
[2019-10-24] MEDS: NovoLOG Insulin Flexpen SUBQ SCH ×3 (06:17→18:27)
--- NOTE | 2019-10-24 07:40 | NUR ---
NURSE HAND-OFF REPORT: Important Events on Shift: HD done 2 L out Patient Status: Stable Diet: Nephro at 45cc/hr Pending Orders: n Pending Results/Labs:n Pending MD notification:n Latest Vital Signs: Temperature 98.6 , Pulse 116 , B/P 124 /62 , Respiratory Rate 1 , O2 SAT 100 , Mechanical Ventilator, O2 Flow Rate 15.0 . Vital Sign Comment: n EKG Rhythm: Sinus Rhythm Rhythm change?: N MD Notified?: N - MD Response: Latest Delacruz Fall Score: 70 Fall Risk: High Risk Safety Measures: Call light Within Reach, Bed Alarm Zone 2, Side Rails Side Rails x2, Bed position Low and Locked. Fall Precautions: Yellow Socks Yellow Gown Patient Fall Education Report given to TAMICA Bills RN.
--- NOTE | 2019-10-24 07:45 | NUR ---
NURSE NOTES: Received pt from RONEY RN. Pt in bed, obtunded, non-verbal, No sign of distress. On mechanical vent, with settings of AC 12, TV 550, FiO2 24%, Peep 5. No grimacing noted. Rectal tube in place, intact/patent. IV at L forearm 20G TKO intact/patent. R upper chest perm a cath in place. HOB elevated GTF on hold till 10 am. Bed in low position, bed alarm on, call light within reach. Will continue to monitor pt.
--- NOTE | 2019-10-24 08:34 | Hematology/Onc Progress Note ---
Assessment/Plan Assessment/Plan Assessment/recs # Anemia due to chronic disease/kidney disease as well, gi bleed + occult + noted --> was on iron in the past, now on hold --> has been started on Epogen sq --> as per renal care --> egd done and shows gastritis --> on ppi --> egd showed gastritis, colo recently done --> hgb 9-->8.7-->7.6-->9.2-->8.9-->9.2->9.3-->8.8->9.9-->9.2-->8.1-->8.7-->7.9- ->8.6-->8.9-->8.2->9-->9.3->8.9-->9.5-->10.6->9.2-->10->8.9-->8.3-->8.9-->9.9--> 9.3-->9-->9.3->11 --> spep ordered->wnl # Leukocytosis - with multiple infections, VRE UTI, flow is negative --> wbc trend 33-->28-->25->23->22->23->24->17.3-->17-->14->16-->15.6-->14-->14- >13->19->18->17->22->22->19->17-->18->20-->15-->14->16-->14-->17->18-->17->15--> 16-->17 --> on abx, linezolid and zosyn--> zosyn-->gent-->off --> + blood cultures with coag neg staph likely contaminated --> as per id recs --> has ordered a flow cytometry (with pathology) --> does show increased nK cell activity --> JOURDAN 2 and bcr-abl labs ordered (these are send outs)->negative --> plt 585-->613-->649-->669->663-->529-->506-->620-->720 # Elevated ddimer on admission --> duplex lower legs neg for dvt # Respiratory failure --> per pulm, s/p trach --> COVID 19 test negative x 2 # Hyperlipidemia --> statin po # Dysphagia s/p gtube with nepro --> per gi # ESRD with r fem julito --> hd as per renal # Dvt ppx lovenox sq Appreciate consultation and dw Rn Subjective HEENT: Denies: no symptoms, eye pain, blurred vision, tearing, double vision, ear pain, ear discharge, nose pain, nose congestion, throat pain, throat swelling, mouth pain, mouth swelling, other Cardiovascular: Denies: no symptoms, chest pain, edema, irregular heart rate, lightheadedness, palpitations, syncope, other Respiratory: Denies: no symptoms, cough, shortness of breath, SOB with excertion, SOB at rest, sputum, wheezing, other Gastrointestinal/Abdominal: Denies: no symptoms, abdomen distended, abdominal pain, black stools, tarry stools, blood in stool, constipated, diarrhea, difficulty swallowing, nausea, poor appetite, poor fluid intake, rectal bleeding , vomiting, other Genitourinary: Denies: no symptoms, burning, discharge, frequency, flank pain, hematuria, incontinence, pain, urgency, other Neurologic/Psychiatric: Denies: no symptoms, anxiety, depressed, emotional problems, headache, numbness, paresthesia, pre-existing deficit, seizure, tingling, tremors, weakness, other Endocrine: Denies: no symptoms, excessive sweating, flushing, intolerance to cold, intolerance to heat, increased hunger, increased thirst, increased urine, unexplained weight gain, unexplained weight loss, other Allergies: Coded Allergies: No Known Allergies (Unverified , 06/10/19) Subjective 08/15 meds noted, no bleeding, hgb 8.8, wbc 28, path flow pending 08/16 flow pending dw pathologist, results pending, wbc 25, hgb 9 08/17 labs reviewed, meds reviewed, meds noted, no night sweats 08/19 remains obtunded, on vent/trach, no bleeding wbc 21.7 08/20 labs have been reviewed, no bleeding, wbc still elev, path reviewed 08/21 labs are noted, no bleeding, on vent, wbc better 08/22 labs noted, no bleeding, meds reviewed, wbc 24 hgb 7.6 08/23 vent, off abx, c diff negative, h/h stable 08/24 labs reviewed, on abx, wbc 17, hgb 8.9, no hemolysis 08/26 reviewed flow and is negative for leukemia, matt rn 08/27 meds reviewed, no night sweats, matt rn, no major bleeding 08/28 meds reivewed, labs noted 08/29 wbc is stable, approx 15, hgb 8.8, no hemolysis 08/30 labs are noted, is for colo today, hgb 9.9 08/31 right fem julito in place, unchanged, hgb 9.2, gi aware 09/01 labs noted, hgb 8.8, plt >600, no bleeding 09/02 labs noted, no bleeding, with elev wbc still, no new changes 09/03 meds are noted, no bleeding, labs reviewed hgb 8.6 09/04 no major events, hd as per renal, abx, no bleeding hgb low 09/05 labs are noted, no bleeding, meds have been reviewed 09/06 no new labs no hemolysis, cbc is noted, no bleeding 09/07 meds reviewed, no bleeding, matt rn, permacath functioning well 09/09 meds reviewed, wbc still elevated, as per id recs, cbc noted 09/10 is obtunded, with gutbe in place, labs reviewed 09/11 obtunded, as per id, observe now off abx, labs noted, wbc 19 09/12 cbc is pending, remains on epogen, also off abx 09/13 labs reviewed, no bleeding, elev wbc, no night sweats 09/14 meds noted, no bleeding, wbc 19, hgb 9.5, no night sweats 09/21 obtunded, remains on vent, labs noted, no bleeding, hgb 8.9 09/22 obtunded, labs noted, no bleeding, on vent, unchanged 09/23 unchanges, wbc remains elevated 20k, on abx, on vent 09/24 labs have been reviewed, no bleeding, wbc 15, may need abx 09/25 formula gtube changed, labs noted, remains obtunded, hgb 9.3 09/26 labs have been reviewed, no bleeding, matt rn, no night sweats 09/27 meds reviewed, no bleeding, wbc 14, on abx, remains obtunded 09/28 remains obtunded, no bleeding, wbc better, hgb 8.9, no hemolysis, plt 506 09/30 on colisitn, wbc elevated, cefepime added per id, hgb stable 10/01 labs reviewed, no bleeding, matt rn, no major events noted, wbc 14, hgb 10.6 10/02 labs have been noted, hgb 9.2, wbc 17, on abx, matt rn 10/03 continue on tube feeds, no bleeding, on vent, wbc remains elevated 10/04 remains ibtunded, is on a mechanical ventilator with tube feeds noted 10/05 labs are noted, hgb 8.6, wbc remains elevated, have ordered for spep 10/07 obtunded on vent, with gtube feeds, labs reviewed, matt rn 10/08 labs are noted, on vent/trach, hgb 10.2, remains obtunded 10/09 labns noted, wbc 15, hgb 8.9, remains altered, on tfs 10/10 labs noted, holding tube feeds, matt rn, hg stable 8. currently 10/11 remains on tfs, supportive care, labs noted, no bleeding 10/12 remains obtunded, hgb 8.9, no hemolysis is seen 10/14 labs reviewed, no bleeding, pending potential hd if rn available 10/15 is on vent, with gtube, labs reviewed, no bleeding, to get hd soon 10/16 remains on vent, matt rn at bedside, wbc 15, abx prn, plt also higher, will monitor 10/17 on vent, continue on tube feeds via gtube, labs improved 10/18 labs noted, remains on vent, and tube feeds, no major changes 10/19 nad, no bleeding, labs reviewed, no night sweats, bp elevated, cards aware 10/21 labs pending, with gtube running, on [facility] vent, abx off 10/22 labs reviewed, no major changes, wbc 18, plt 791k, on gtube feeds 10/23 labs reviewed, meds noted, on epogen and lovenox sq, obtunded, is nv Objective Objective Current Medications Medications (Trade) Dose Ordered Sig/Leonel Route PRN Reason Start Time Stop Time Status Last Admin Dose Admin Acetaminophen (Tylenol) 650 mg Q6H PRN GT Temp >100.5 10/21/19 20:45 11/20/19 20:44 10/21/19 22:45 Acyclovir (Zovirax) 400 mg Q12HR ORAL 10/23/19 13:00 11/22/19 12:59 10/23/19 20:32 Chlorhexidine Gluconate (Felipa-Hex 2%) 1 applic DAILY@1999 TOPIC 09/12/19 20:00 12/11/19 19:59 10/23/19 20:31 Clonidine HCl (Catapres Tab) 0.1 mg Q4H PRN GT For High Blood Pressure 09/09/19 12:30 12/08/19 05:29 09/15/19 04:10 Dextrose (Dextrose 50%) 25 ml Q30M PRN IV Hypoglycemia 08/09/19 07:30 11/07/19 07:29 Dextrose (Dextrose 50%) 50 ml Q30M PRN IV Hypoglycemia 08/09/19 07:30 11/07/19 07:29 Diphenoxylate HCl/ Atropine (Lomotil) 2.5 mg QID PRN ORAL Diarrhea 09/24/19 08:45 10/24/19 08:44 Enoxaparin Sodium (Lovenox) 30 mg DAILY SUBQ 10/24/19 09:00 01/22/20 08:59 Epoetin Andreas (Epoetin Andreas(ESRD on dialysis)) 8,000 unit WED-WED-WED SUBQ 10/25/19 21:00 01/23/20 20:59 Famotidine (Pepcid) 20 mg DAILY GT 08/30/19 09:00 11/28/19 08:59 10/23/19 08:15 Insulin Aspart (NovoLOG) Q6HR SUBQ 09/25/19 18:00 11/07/19 11:29 10/24/19 06:17 Lactobacillus Acidophilus (Culturelle) 1 tab EVERY 12 HOURS GT 10/03/19 21:00 12/13/19 17:59 10/23/19 20:32 Loperamide HCl (Imodium) 2 mg Q6H PRN NG Diarrhea 10/15/19 07:45 11/14/19 07:44 Metoprolol Tartrate (Lopressor) 200 mg Q12HR GT 08/09/19 09:00 11/07/19 08:59 10/22/19 21:53 Minoxidil (Loniten) 5 mg DAILY GT 08/09/19 09:00 11/07/19 08:59 10/21/19 09:11 Zinc Oxide (Zinc Oxide) 1 applic EVERY 12 HOURS TOPIC 10/03/19 09:00 11/08/19 17:59 10/23/19 20:32 Last 24 Hour Vital Signs Date Time Temp Pulse Resp B/P (MAP) Pulse Ox O2 Delivery O2 Flow Rate FiO2 10/24/19 07:15 116 1 24 10/24/19 04:00 98.6 100 18 124/62 (82) 100 10/24/19 04:00 24 10/24/19 04:00 Mechanical Ventilator 10/24/19 03:31 113 10/24/19 03:19 113 20 24 10/24/19 00:00 24 10/24/19 00:00 97.9 103 18 98/50 (66) 100 10/24/19 00:00 Mechanical Ventilator 10/23/19 23:54 100 22 24 10/23/19 23:26 102 10/23/19 20:32 105 100/54 10/23/19 20:00 98.2 105 18 110/54 (72) 100 10/23/19 20:00 Mechanical Ventilator 10/23/19 20:00 24 10/23/19 20:00 107 10/23/19 16:00 24 10/23/19 16:00 97.3 94 18 114/58 (76) 100 10/23/19 16:00 Mechanical Ventilator 10/23/19 16:00 99 10/23/19 15:40 85 18 24 10/23/19 12:00 98.1 95 20 99/48 (65) 100 10/23/19 12:00 24 10/23/19 12:00 Mechanical Ventilator 10/23/19 11:59 90 10/23/19 11:06 92 14 24 10/23/19 08:16 104 100/55 10/23/19 08:16 100/55 10/23/19 08:00 98.6 104 19 100/55 (70) 100 10/23/19 08:00 Mechanical Ventilator 10/23/19 07:47 24 10/23/19 07:47 104 10/23/19 07:22 103 17 24 10/23/19 04:00 Mechanical Ventilator 10/23/19 04:00 99.0 82 20 125/69 (87) 100 10/23/19 04:00 24 10/23/19 03:40 97 10/23/19 03:30 83 16 24 10/23/19 00:00 78 10/23/19 00:00 Mechanical Ventilator 10/23/19 00:00 98.9 77 20 120/52 (74) 100 10/22/19 23:00 77 15 24 10/22/19 21:53 102 121/63 10/22/19 20:00 24 10/22/19 20:00 98.1 102 20 121/63 (82) 100 10/22/19 20:00 Mechanical Ventilator 10/22/19 19:32 84 10/22/19 19:00 76 16 24 10/22/19 16:00 Mechanical Ventilator 10/22/19 16:00 86 10/22/19 16:00 98.6 77 21 107/53 (71) 99 10/22/19 16:00 24 10/22/19 15:05 79 14 24 10/22/19 12:00 Mechanical Ventilator 10/22/19 12:00 24 10/22/19 12:00 100 10/22/19 11:31 98.2 97 18 102/57 (72) 100 10/22/19 10:45 99 14 24 10/22/19 08:57 95 103/53 10/22/19 08:56 103/53 Intake and Output 10/23/19 10/24/19 19:00 07:00 Intake Total 420 ml 540 ml Output Total 60 ml 2000 ml Balance 360 ml -1460 ml Free Water 60 ml Tube Feeding 360 ml 540 ml Stool Total 60 ml Hemodialysis UF 2000 ml Labs Test 10/21/19 12:02 10/21/19 16:40 10/22/19 00:25 10/22/19 04:51 POC Whole Blood Glucose 161 MG/DL (74-106) 181 MG/DL (74-106) 195 MG/DL (74-106) Test 10/22/19 05:22 10/22/19 11:19 10/22/19 16:53 10/23/19 00:51 White Blood Count 18.7 K/UL (4.8-10.8) Red Blood Count 5.48 M/UL (4.70-6.10) Hemoglobin 12.7 G/DL (14.2-18.0) Hematocrit 42.8 % (42.0-52.0) Mean Corpuscular Volume 78 FL (80-99) Mean Corpuscular Hemoglobin 23.1 PG (27.0-31.0) Mean Corpuscular Hemoglobin Concent 29.6 G/DL (32.0-36.0) Red Cell Distribution Width 17.0 % (11.6-14.8) Platelet Count 791 K/UL (150-450) Mean Platelet Volume 5.4 FL (6.5-10.1) Neutrophils (%) (Auto) % (45.0-75.0) Lymphocytes (%) (Auto) % (20.0-45.0) Monocytes (%) (Auto) % (1.0-10.0) Eosinophils (%) (Auto) % (0.0-3.0) Basophils (%) (Auto) % (0.0-2.0) Differential Total Cells Counted 100 Neutrophils % (Manual) 73 % (45-75) Lymphocytes % (Manual) 17 % (20-45) Monocytes % (Manual) 9 % (1-10) Eosinophils % (Manual) 0 % (0-3) Basophils % (Manual) 1 % (0-2) Band Neutrophils 0 % (0-8) Platelet Estimate Increased Platelet Morphology Normal Anisocytosis 1+ Microcytosis 1+ Sodium Level 134 MMOL/L (136-145) Potassium Level 3.8 MMOL/L (3.5-5.1) Chloride Level 95 MMOL/L (98-107) Carbon Dioxide Level 26 MMOL/L (21-32) Anion Gap 14 mmol/L (5-15) Blood Urea Nitrogen 76 mg/dL (7-18) Creatinine 4.4 MG/DL (0.55-1.30) Estimat Glomerular Filtration Rate 13.1 mL/min (>60) Glucose Level 196 MG/DL (74-106) Calcium Level 10.7 MG/DL (8.5-10.1) Total Bilirubin 0.5 MG/DL (0.2-1.0) Aspartate Amino Transf (AST/SGOT) 137 U/L (15-37) Alanine Aminotransferase (ALT/SGPT) 112 U/L (12-78) Alkaline Phosphatase 319 U/L (46-116) Total Protein 11.1 G/DL (6.4-8.2) Albumin 2.5 G/DL (3.4-5.0) Globulin 8.6 g/dL Albumin/Globulin Ratio 0.3 (1.0-2.7) POC Whole Blood Glucose 200 MG/DL (74-106) Test 10/23/19 04:38 10/23/19 05:06 10/23/19 11:26 10/23/19 15:54 Iron Level 20 ug/dL (50-175) Total Iron Binding Capacity 151 ug/dL (250-450) Percent Iron Saturation 13 % (15-50) Unsaturated Iron Binding 131 ug/dL (112-346) Total Bilirubin 0.4 MG/DL (0.2-1.0) Direct Bilirubin 0.2 MG/DL (0.0-0.3) Aspartate Amino Transf (AST/SGOT) 159 U/L (15-37) Alanine Aminotransferase (ALT/SGPT) 137 U/L (12-78) Alkaline Phosphatase 316 U/L (46-116) Total Creatine Kinase 473 U/L (26-308) Total Protein 8.7 G/DL (6.4-8.2) Albumin 2.1 G/DL (3.4-5.0) Keith-Rahman Virus Capsid Ag IgM Ab <36.0 U/mL (0.0-35.9) POC Whole Blood Glucose 158 MG/DL (74-106) 192 MG/DL (74-106) Test 10/23/19 23:12 10/24/19 03:00 10/24/19 05:16 POC Whole Blood Glucose 224 MG/DL (74-106) 234 MG/DL (74-106) Sodium Level 134 MMOL/L (136-145) Potassium Level 3.9 MMOL/L (3.5-5.1) Chloride Level 96 MMOL/L (98-107) Carbon Dioxide Level 25 MMOL/L (21-32) Anion Gap 14 mmol/L (5-15) Blood Urea Nitrogen 52 mg/dL (7-18) Creatinine 3.0 MG/DL (0.55-1.30) Estimat Glomerular Filtration Rate 20.3 mL/min (>60) Glucose Level 196 MG/DL (74-106) Calcium Level 6.9 MG/DL (8.5-10.1) Total Bilirubin 0.5 MG/DL (0.2-1.0) Aspartate Amino Transf (AST/SGOT) 311 U/L (15-37) Alanine Aminotransferase (ALT/SGPT) 210 U/L (12-78) Alkaline Phosphatase 377 U/L (46-116) Total Protein 9.5 G/DL (6.4-8.2) Albumin 2.0 G/DL (3.4-5.0) Globulin 7.5 g/dL Albumin/Globulin Ratio 0.3 (1.0-2.7) Height (Feet): 5 Height (Inches): 10.00 Weight (Pounds): 123 Objective Physical Exam General Appearance: nad, Chronically Ill Head: normocephalic Eyes: right eye PERRL - Will not open left eye ENT: moist mucus membranes Neck: other - submandibular mass R, fairly rigid with resistance to rotation to L, tracheotomy Respiratory: decreased breath sounds, crackles, other - pacemaker, vent+ Cardiovascular: regular rate, rhythm, edema - anasarca Gastrointestinal: non tender, distended, other - G tube Genitourinary: other Musculoskeletal: other - Contractures all extremities Neurologic: sensory intact, motor weakness, responsive Psychiatric: other Skin: Decubitus/Ulcer - Stage III right elbow, stage III left elbow, stage II sacrum, stage III scrotum, warm/dry Fitz Campos MD Oct 24, 2019 08:34
[2019-10-24] MEDS: Acyclovir 200mg Cap ORAL SCH ×2 (09:21→21:10)
[2019-10-24] MEDS: Enoxaparin 30mg Inj SUBQ SCH (09:21)
[2019-10-24] MEDS: Lactobacillus-GG tablet GT SCH ×2 (09:23→21:09)
[2019-10-24] MEDS: Minoxidil 2.5mg tab GT SCH (09:23)
[2019-10-24] MEDS: Metoprolol Tartrate 100mg tab GT SCH ×2 (09:24→21:00)
[2019-10-24] MEDS: Zinc Oxide Oint 2oz TOPIC SCH ×2 (09:24→21:10)
[2019-10-24] MEDS: Acetaminophen 650mg/20.3ml GT PRN (10:25)
--- NOTE | 2019-10-24 10:30 | NUR ---
NURSE NOTES: Pt. seen by Dr. Hutchins at bedside. Informed by RN that pt. currently spike a fever of 102.2 and tachy at 120's. Dr. Hutchins will put pt. to IV atb. and dtr at bedside made aware.
--- NOTE | 2019-10-24 10:54 | Infectious Diseases Prog Note ---
"Assessment/Plan Assessment/Plan antibiotics : acyclovir 10.23.19 - A 1. acenitobacter | proteus pneumonia s/p rx 2. respiratory failure 3. leucocytosis 4. COVID 19 test negative x 2 5. renal failure on HD 6. groin warts 7. fever P 1. continue acyclovir 8 more days 2. blood culture 3. sputum culture 4. start iv vancomycin, zosyn 5. will follow up cultures Subjective ROS Limited/Unobtainable: Yes Allergies: Coded Allergies: No Known Allergies (Unverified , 06/10/19) Objective Last 24 Hour Vital Signs Date Time Temp Pulse Resp B/P (MAP) Pulse Ox O2 Delivery O2 Flow Rate FiO2 10/24/19 10:43 104 18 24 10/24/19 09:24 117 115/69 10/24/19 09:23 115/69 10/24/19 08:00 98.0 117 21 115/69 (84) 99 10/24/19 07:15 116 19 24 10/24/19 04:00 98.6 100 18 124/62 (82) 100 10/24/19 04:00 24 10/24/19 04:00 Mechanical Ventilator 10/24/19 03:31 113 10/24/19 03:19 113 20 24 10/24/19 00:00 24 10/24/19 00:00 97.9 103 18 98/50 (66) 100 10/24/19 00:00 Mechanical Ventilator 10/23/19 23:54 100 22 24 10/23/19 23:26 102 10/23/19 20:32 105 100/54 10/23/19 20:00 98.2 105 18 110/54 (72) 100 10/23/19 20:00 Mechanical Ventilator 10/23/19 20:00 24 10/23/19 20:00 107 10/23/19 16:00 24 10/23/19 16:00 97.3 94 18 114/58 (76) 100 10/23/19 16:00 Mechanical Ventilator 10/23/19 16:00 99 10/23/19 15:40 85 18 24 10/23/19 12:00 98.1 95 20 99/48 (65) 100 10/23/19 12:00 24 10/23/19 12:00 Mechanical Ventilator 10/23/19 11:59 90 10/23/19 11:06 92 14 24 Height (Feet): 5 Height (Inches): 10.00 Weight (Pounds): 123 HEENT: status post trach Respiratory/Chest: lungs clear Cardiovascular: normal rate, regular rhythm, no gallop/murmur Abdomen: soft, non tender, other - GT Extremities: no edema, other - right subclavian catheter Laboratory Tests Test 10/23/19 11:26 10/23/19 15:54 10/23/19 23:12 10/24/19 03:00 POC Whole Blood Glucose 158 MG/DL (74-106) H 192 MG/DL (74-106) H 224 MG/DL (74-106) H Sodium Level 134 MMOL/L (136-145) L Potassium Level 3.9 MMOL/L (3.5-5.1) Chloride Level 96 MMOL/L (98-107) L Carbon Dioxide Level 25 MMOL/L (21-32) Anion Gap 14 mmol/L (5-15) Blood Urea Nitrogen 52 mg/dL (7-18) H Creatinine 3.0 MG/DL (0.55-1.30) H Estimat Glomerular Filtration Rate 20.3 mL/min (>60) Glucose Level 196 MG/DL (74-106) H Calcium Level 6.9 MG/DL (8.5-10.1) L Total Bilirubin 0.5 MG/DL (0.2-1.0) Aspartate Amino Transf (AST/SGOT) 311 U/L (15-37) H Alanine Aminotransferase (ALT/SGPT) 210 U/L (12-78) H Alkaline Phosphatase 377 U/L (46-116) H Total Protein 9.5 G/DL (6.4-8.2) H Albumin 2.0 G/DL (3.4-5.0) L Globulin 7.5 g/dL Albumin/Globulin Ratio 0.3 (1.0-2.7) L Test 10/24/19 05:16 POC Whole Blood Glucose 234 MG/DL (74-106) H Current Medications Medications (Trade) Dose Ordered Sig/Leonel Route PRN Reason Start Time Stop Time Status Last Admin Dose Admin Acetaminophen (Tylenol) 650 mg Q6H PRN GT Temp >100.5 10/21/19 20:45 11/20/19 20:44 10/24/19 10:25 Acyclovir (Zovirax) 400 mg Q12HR ORAL 10/23/19 13:00 11/22/19 12:59 10/24/19 09:21 Chlorhexidine Gluconate (Felipa-Hex 2%) 1 applic DAILY@1999 TOPIC 09/12/19 20:00 12/11/19 19:59 10/23/19 20:31 Clonidine HCl (Catapres Tab) 0.1 mg Q4H PRN GT For High Blood Pressure 09/09/19 12:30 12/08/19 05:29 09/15/19 04:10 Dextrose (Dextrose 50%) 25 ml Q30M PRN IV Hypoglycemia 08/09/19 07:30 11/07/19 07:29 Dextrose (Dextrose 50%) 50 ml Q30M PRN IV Hypoglycemia 08/09/19 07:30 11/07/19 07:29 Enoxaparin Sodium (Lovenox) 30 mg DAILY SUBQ 10/24/19 09:00 01/22/20 08:59 10/24/19 09:21 Epoetin Andreas (Epoetin Andreas(ESRD on dialysis)) 8,000 unit WED-WED-WED SUBQ 10/25/19 21:00 01/23/20 20:59 Famotidine (Pepcid) 20 mg DAILY GT 08/30/19 09:00 11/28/19 08:59 10/24/19 09:21 Insulin Aspart (NovoLOG) Q6HR SUBQ 09/25/19 18:00 11/07/19 11:29 10/24/19 06:17 Lactobacillus Acidophilus (Culturelle) 1 tab EVERY 12 HOURS GT 10/03/19 21:00 12/13/19 17:59 10/24/19 09:23 Loperamide HCl (Imodium) 2 mg Q6H PRN NG Diarrhea 10/15/19 07:45 11/14/19 07:44 Metoprolol Tartrate (Lopressor) 200 mg Q12HR GT 08/09/19 09:00 11/07/19 08:59 10/24/19 09:24 Minoxidil (Loniten) 5 mg DAILY GT 08/09/19 09:00 11/07/19 08:59 10/24/19 09:23 Zinc Oxide (Zinc Oxide) 1 applic EVERY 12 HOURS TOPIC 10/03/19 09:00 11/08/19 17:59 10/24/19 09:24 Farnaz Lyle MD Oct 24, 2019 10:54"
--- NOTE | 2019-10-24 11:34 | General Progress Note ---
Assessment/Plan Assessment/Plan: IMPRESSION: 1. anemia. 2. fevers improved 3. Leukocytosis. 4. hypotension 5. Acute on chronic renal failure. 6. Hyponatremia. 7. Severe protein-calorie malnutrition. 8. Significantly elevated C-reactive protein concerning for infectious etiology. 9. Tracheostomy, G-tube. 10. Ventilator dependence. 11. anasarca 12. Hematuria 13. V pacing 14. hyponatremia 15. transaminitis, HIDA negative PLAN chronic care; unable to place care noted on vent/ no wean monitor labs and optimize ID follow up dialysis ongoing prognosis poor for recovery impression, plan, and exam edited and reviewed in detail care discussed with RN Subjective Allergies: Coded Allergies: No Known Allergies (Unverified , 06/10/19) Subjective remains ill on vent/ no change on HD vitals noted Objective Last 24 Hour Vital Signs Date Time Temp Pulse Resp B/P (MAP) Pulse Ox O2 Delivery O2 Flow Rate FiO2 10/24/19 10:55 100.4 10/24/19 10:43 104 18 24 10/24/19 09:24 117 115/69 10/24/19 09:23 115/69 10/24/19 08:00 98.0 117 21 115/69 (84) 99 10/24/19 08:00 24 10/24/19 07:15 116 19 24 10/24/19 04:00 98.6 100 18 124/62 (82) 100 10/24/19 04:00 24 10/24/19 04:00 Mechanical Ventilator 10/24/19 03:31 113 10/24/19 03:19 113 20 24 10/24/19 00:00 24 10/24/19 00:00 97.9 103 18 98/50 (66) 100 10/24/19 00:00 Mechanical Ventilator 10/23/19 23:54 100 22 24 10/23/19 23:26 102 10/23/19 20:32 105 100/54 10/23/19 20:00 98.2 105 18 110/54 (72) 100 10/23/19 20:00 Mechanical Ventilator 10/23/19 20:00 24 10/23/19 20:00 107 10/23/19 16:00 24 10/23/19 16:00 97.3 94 18 114/58 (76) 100 10/23/19 16:00 Mechanical Ventilator 10/23/19 16:00 99 10/23/19 15:40 85 18 24 10/23/19 12:00 98.1 95 20 99/48 (65) 100 10/23/19 12:00 24 10/23/19 12:00 Mechanical Ventilator 10/23/19 11:59 90 Intake and Output 10/23/19 10/24/19 19:00 07:00 Intake Total 420 ml 540 ml Output Total 60 ml 2000 ml Balance 360 ml -1460 ml Free Water 60 ml Tube Feeding 360 ml 540 ml Stool Total 60 ml Hemodialysis UF 2000 ml Laboratory Tests 10/23/19 15:54: POC Whole Blood Glucose 192H 10/23/19 23:12: POC Whole Blood Glucose 224H 10/24/19 03:00: Sodium Level 134L, Potassium Level 3.9, Chloride Level 96L, Carbon Dioxide Level 25, Anion Gap 14, Blood Urea Nitrogen 52H, Creatinine 3.0H, Estimat Glomerular Filtration Rate 20.3, Glucose Level 196H, Calcium Level 6.9L, Total Bilirubin 0.5, Aspartate Amino Transf (AST/SGOT) 311H, Alanine Aminotransferase (ALT/SGPT) 210H, Alkaline Phosphatase 377H, Total Protein 9.5H, Albumin 2.0L, Globulin 7.5, Albumin/Globulin Ratio 0.3L 10/24/19 05:16: POC Whole Blood Glucose 234H Height (Feet): 5 Height (Inches): 10.00 Weight (Pounds): 123 Objective GENERAL: Ill-appearing male, chronically debilitated. HEENT: Tracheostomy in midline. Questionable fullness in the submandibular region. LUNGS: Coarse breath sounds. reduced breath sounds CARDIAC: S1, S2. Regular rate and rhythm. borderline tachy ABDOMEN: Soft. G-tube. EXTREMITIES: With noted edema. NEUROLOGICAL: Poorly responsive, weak diffusely. Kain Ramirez MD Oct 24, 2019 11:34
[2019-10-24] MEDS: Piperacillin/Tazobactam 2.25 GM in D5W 55 ML IVPB SCH ×2 (12:17→21:09)
[2019-10-24] MEDS ORDERED: Vancomycin 1gm/D5W 275ml IVPB ONE ×2 (13:00)
--- NOTE | 2019-10-24 15:37 | NUR ---
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 SPOKE WITH JAMILA FROM [facility] PT ACCEPTED PENDING MARISABEL.
--- NOTE | 2019-10-24 16:30 | NUR ---
NURSE NOTES: Called and spoke to Dr. Brito regarding low b/p 70/43. And gave order for Albumin 25% now and bolus 1000ml. x1 now.
--- NOTE | 2019-10-24 16:46 | Nephrology Progress Note ---
Assessment/Plan Plan Septic Shock - IVF boluses. Restarted IV Abx per ID. MOF ESRD - HD now MWF Anemia of CKD -TUYET. Subjective Subjective Obtunded. Hypotensive. SBP 70's. Objective Objective Last 24 Hour Vital Signs Date Time Temp Pulse Resp B/P (MAP) Pulse Ox O2 Delivery O2 Flow Rate FiO2 10/24/19 16:19 96 10/24/19 16:00 24 10/24/19 16:00 Mechanical Ventilator 10/24/19 14:58 90 17 24 10/24/19 12:00 Mechanical Ventilator 10/24/19 12:00 98.1 84 21 96/49 (65) 100 10/24/19 12:00 24 10/24/19 11:49 85 10/24/19 10:55 100.4 10/24/19 10:43 104 18 24 10/24/19 09:24 117 115/69 10/24/19 09:23 115/69 10/24/19 08:00 111 10/24/19 08:00 98.0 117 21 115/69 (84) 99 10/24/19 08:00 24 10/24/19 08:00 Mechanical Ventilator 10/24/19 07:15 116 19 24 10/24/19 04:00 98.6 100 18 124/62 (82) 100 10/24/19 04:00 24 10/24/19 04:00 Mechanical Ventilator 10/24/19 03:31 113 10/24/19 03:19 113 20 24 10/24/19 00:00 24 10/24/19 00:00 97.9 103 18 98/50 (66) 100 10/24/19 00:00 Mechanical Ventilator 10/23/19 23:54 100 22 24 10/23/19 23:26 102 10/23/19 20:32 105 100/54 10/23/19 20:00 98.2 105 18 110/54 (72) 100 10/23/19 20:00 Mechanical Ventilator 10/23/19 20:00 24 10/23/19 20:00 107 Intake and Output 10/23/19 10/24/19 19:00 07:00 Intake Total 420 ml 540 ml Output Total 60 ml 2000 ml Balance 360 ml -1460 ml Free Water 60 ml Tube Feeding 360 ml 540 ml Stool Total 60 ml Hemodialysis UF 2000 ml Laboratory Tests 10/23/19 23:12: POC Whole Blood Glucose 224H 10/24/19 03:00: Sodium Level 134L, Potassium Level 3.9, Chloride Level 96L, Carbon Dioxide Level 25, Anion Gap 14, Blood Urea Nitrogen 52H, Creatinine 3.0H, Estimat Glomerular Filtration Rate 20.3, Glucose Level 196H, Calcium Level 6.9L, Total Bilirubin 0.5, Aspartate Amino Transf (AST/SGOT) 311H, Alanine Aminotransferase (ALT/SGPT) 210H, Alkaline Phosphatase 377H, Total Protein 9.5H, Albumin 2.0L, Globulin 7.5, Albumin/Globulin Ratio 0.3L 10/24/19 05:16: POC Whole Blood Glucose 234H 10/24/19 12:11: POC Whole Blood Glucose 171H Height (Feet): 5 Height (Inches): 10.00 Weight (Pounds): 123 Objective Clammy, diaphoretic CV RR Trach clean Lungs CTA Perma Cath RIJ. Abd SNT. BS + E No CCE Barely responsive Erica Pichardo MD Oct 24, 2019 16:46
--- NOTE | 2019-10-24 18:17 | Surgery Progress Note ---
Surgery Progress Note Subjective Procedure Performed Right femoral temporary hemodialysis catheter removal Additional Comments leukocytosis persistently elevated lft's ill appearing on support Objective Last 24 Hour Vital Signs Date Time Temp Pulse Resp B/P (MAP) Pulse Ox O2 Delivery O2 Flow Rate FiO2 10/24/19 16:45 98.2 82 20 93/41 (58) 100 10/24/19 16:19 96 10/24/19 16:00 24 10/24/19 16:00 Mechanical Ventilator 10/24/19 14:58 90 17 24 10/24/19 12:00 Mechanical Ventilator 10/24/19 12:00 98.1 84 21 96/49 (65) 100 10/24/19 12:00 24 10/24/19 11:49 85 10/24/19 10:55 100.4 10/24/19 10:43 104 18 24 10/24/19 09:24 117 115/69 10/24/19 09:23 115/69 10/24/19 08:00 111 10/24/19 08:00 98.0 117 21 115/69 (84) 99 10/24/19 08:00 24 10/24/19 08:00 Mechanical Ventilator 10/24/19 07:15 116 19 24 10/24/19 04:00 98.6 100 18 124/62 (82) 100 10/24/19 04:00 24 10/24/19 04:00 Mechanical Ventilator 10/24/19 03:31 113 10/24/19 03:19 113 20 24 10/24/19 00:00 24 10/24/19 00:00 97.9 103 18 98/50 (66) 100 10/24/19 00:00 Mechanical Ventilator 10/23/19 23:54 100 22 24 10/23/19 23:26 102 10/23/19 20:32 105 100/54 10/23/19 20:00 98.2 105 18 110/54 (72) 100 10/23/19 20:00 Mechanical Ventilator 10/23/19 20:00 24 10/23/19 20:00 107 I&O Intake and Output 10/23/19 10/24/19 19:00 07:00 Intake Total 420 ml 540 ml Output Total 60 ml 2000 ml Balance 360 ml -1460 ml Free Water 60 ml Tube Feeding 360 ml 540 ml Stool Total 60 ml Hemodialysis UF 2000 ml Dressing: other Wound: other Cardiovascular: RSR Respiratory: decreased breath sounds Abdomen: soft, non-tender, present bowel sounds Extremities: no cyanosis Laboratory Tests Test 10/23/19 23:12 10/24/19 03:00 10/24/19 05:16 10/24/19 12:11 POC Whole Blood Glucose 224 MG/DL (74-106) H 234 MG/DL (74-106) H 171 MG/DL (74-106) H Sodium Level 134 MMOL/L (136-145) L Potassium Level 3.9 MMOL/L (3.5-5.1) Chloride Level 96 MMOL/L (98-107) L Carbon Dioxide Level 25 MMOL/L (21-32) Anion Gap 14 mmol/L (5-15) Blood Urea Nitrogen 52 mg/dL (7-18) H Creatinine 3.0 MG/DL (0.55-1.30) H Estimat Glomerular Filtration Rate 20.3 mL/min (>60) Glucose Level 196 MG/DL (74-106) H Calcium Level 6.9 MG/DL (8.5-10.1) L Total Bilirubin 0.5 MG/DL (0.2-1.0) Aspartate Amino Transf (AST/SGOT) 311 U/L (15-37) H Alanine Aminotransferase (ALT/SGPT) 210 U/L (12-78) H Alkaline Phosphatase 377 U/L (46-116) H Total Protein 9.5 G/DL (6.4-8.2) H Albumin 2.0 G/DL (3.4-5.0) L Globulin 7.5 g/dL Albumin/Globulin Ratio 0.3 (1.0-2.7) L Plan Problems: (1) Anemia (2) Hyponatremia (3) Leukocytosis Assessment & Plan: Tracheostomy, left chest pacemaker are again demonstrated. There is bilateral interstitial and airspace disease and bilateral pleural fluid again demonstrated. This appears more severe than on the prior study. Bilateral interstitial and airspace infiltrates versus edema. Bilateral pleural effusions Leukocytosis, anemia, tachycardia, abnormal labs. Wound evaluated and likely etiology of patient's sepsis. Leukocytosis etiology work-up antibiotics per infectious disease Appreciate nephrology input transfuse with dialysis We will follow with recommendations thank you allowing participation's care plan HD access temp HD discussed with medical teams line okay HD as per renal persistent leukocytosis flow cyto noted improving trending down right fem line removed wbc fluctuating h/h stable lft's elevated There is a right pleural effusion Gallbladder demonstrates tiny wall adherent nonmobile echogenic foci, some possible mural calcifications, and comet tail artifact in the anterior wall. Patient unable to report sonographic Kent's sign. Common bile duct measures 4 mm in diameter. No intrahepatic biliary ductal dilatation. Liver demonstrates normal echogenicity, no focal abnormality. There is some surface nodularity. Portal vein and hepatic veins are patent. Pancreas is incompletely visualized due to overlying bowel gas, visualized portions are unremarkable. Spleen is unremarkable. Left kidney measures 8.7 cm in length. Right kidney measures 8.9 cm length. Both kidneys demonstrate increased echogenicity. There is no hydronephrosis. No focal abnormality . Abdominal aorta is partially obscured by bowel gas, visualized portions are non-aneurysmal . A gastrostomy is noted Impression: Tiny wall adherent nonmobile gallbladder echogenic foci, may reflect wall adherent calculi, small polyps, and/or pleural calcifications. Anterior wall comet tail artifact suggests foci of adenomyomatosis. Normal caliber common bile duct Possible hepatic surface nodularity, could indicate cirrhotic change Echogenic kidneys, consistent with medical renal disease. No hydronephrosis Right pleural effusion Gastrostomy Note nonvisualization of portions of the pancreas and abdominal aorta HIDA NEGATIVE trend labs (4) Ventilator dependent (5) Right lower lobe pneumonia (6) Hypokalemia (7) Hyperkalemia (8) Anasarca (9) Decubitus skin ulcer Assessment & Plan: pt presented on admission with generalized edemae.Skin assessed under tracheostomy and no areas of concerns noted. GT Insertion is marginally erythematous with small amt slough at stoma. Unstageable Pressure Injury R elbow. Base of wound is 100% yellow slough, Borders are erythematous. Wound oozing small amt haemopurulent exudate.Darker skin tone without elevation in skin temp or erythema periwound. Pt's penis and scrotum are grossly edematous and enlarged and weeping serous exudate from numerous sites both from penis and scrotum. Two small open wounds noted at base of at base of shaft of penis ,and contreras aspect of scrotum. Both wounds oozing large amt sanguineous and serosanguineous exudate. Multiple open wounds with Biofilm at base of each wounds noted to contreras/lateral,inferior and posterior aspects of scrotum. These wounds noted to be oozing moderate amts of serosanguineous exudate. Hypertrophic scar with scattered areas of hyperpigmentation noted to Sacrum. DTPI noted to L Buttocks (L)7cm x (W)9cm. Base of wound is purple and indurated.Darker skin tone without erythema, induration or fluctuance R and L ischial tuberosities. Both heels are boggy with non-blanchable erythema. Tx.Plan: Cleanse wound R elbow with Saline. Apply TheraHoney, Apply Moisture Barrier Paste periwound. Cover with Optifoam drsg.Change Daily and prn. Wash GT site with soap and water.Pat dry. Apply Zinc Oxide Paste to GT site Daily. Leave Open to Air. Apply Zinc Oxide Paste to entire Scrotum, Place ABD pads to R and L lateral, and posterior aspects of scrotum TWICE daily. Apply Cavilon Skin Barrier to malleoli and both Heels. Cover each site with Optifoam drsgs. Change every 7 days and prn. Reposition at least every 2hours or as tolerated. Off-load heels with Pillows. APM/BECCA Mattress overlay. (10) Malnutrition Assessment & Plan: DAILY ESTIMATED NEEDS: Needs based on Renal, critical care, wound/ 61kg 22-30 kcals/kg [id number] total kcals 1.25-2 g protein/kg 76-122 g total protein Fluid per MD, now on HD NUTRITION DIAGNOSIS: * Swallowing difficulty R/T respiratory failure, dysphagia as evidenced by trach/vent dep, PEG dep * Increased kcal/prot needs R/T wound healing as evidenced by admitted w/ multiple pressure injuries including full thickness wounds at junction of Shaft of penis, dorsal scrotum, R elbow, and DTPI @ L buttocks. CURRENT TF:Osmolite 1.2 @ 60ml/hr x 20 hrs + Garo BID ENTERAL NUTRITION RECOMMENDATIONS: Vital AF 1.2 @ 60ml/hr x 20 hrs to provide 1200ml, 1440kcal, 90g prot, 973ml free water * Rec 20 hr run time for GI rest. -> W/ improved GI status, rec Vital AF 1.2, an elemental and carb controlled TF -> monitor lytes and renal fxn closely, monitor need for renal TF -> TF @ goal will provide 1642mg K and 2025mg Phos -> HOB over 30 degrees/ water flush per MD -------- Trial of Osmolite 1.2 continue for now- Goal of 60ml/hr for 20 hrs (4 hrs bowel rest) to provide 1200ml, 1440 kcal, 67g pro, 984ml free H2O, -> Rec to add prosource 1 pack daily (11g pro) to better meet est pro needs. -> Monitor BG, K closely. Pt would require increased insulin coverage as TF at goal would provide 56g more carbs per day. ADDITIONAL RECOMMENDATIONS: * Per SNF: HT=63" VU=817 lbs (vs EMR wt of 166lbs) -> obtain re-calibrated bedscale wt, rec daily wt monitoring * Wound healing: con't Nephrovite + Garo BID/ Vit C dosing per Nephro * Monitor renal fxn and lytes closely w/ non-renal TF ->K low, phos wnl;updated mag level; rec increased insulin w/ BG labs * Daily wts w/ drop to 118-20 lbs, rec to recalibrate for accurate CBW * Consider DC Miralax if medically appropriate: +rectal tube (11) Uremia (12) CKD (chronic kidney disease) stage 5, GFR less than 15 ml/min (13) Colon distention Assessment & Plan: discussed with GI likely functional as having lots of loose bm rectal tube kub f/u s/p colonoscopy - findings reviewed with GI improved cont diet as tolerated Marked distention of the sigmoid colon. 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 No evidence of bowel wall thickening or pneumatosis 12 mm focus of contrast enhancement in the right pectineus muscle. While nonspecific in appearance, appearance raises concern for a possible pseudoaneurysm. Ill- defined thickening of the pectus medius muscle could indicate some intramuscular hemorrhage. The above findings were phoned to Dr. Urias at the time of interpretation Large bilateral pleural effusions Hazy pulmonary parenchymal opacities as well as dense consolidative opacities most likely represent pulmonary edema, but could represent pneumonia Evidence of anasarca elsewhere, with generalized edema of the subcutaneous fat Bladder wall thickening, raises concern for cystitis. Avalos catheter in place Colonic diverticulosis. No evidence of diverticulitis. Tracheostomy Pacemaker Gastrostomy Gastrostomy again demonstrated in satisfactory position. The stomach is otherwise unremarkable. The distal esophagus and duodenum are unremarkable. Ingested contrast reaches the colon. No small bowel distention or small bowel wall thickening. Interim placement of a rectal tube. There are a few colonic diverticula. No definite evidence of acute diverticulitis. The appendix is prominent in caliber, as previously No free or loculated intraperitoneal gas or fluid is evident. Again demonstrated is marked gaseous distention of the sigmoid colon which measures up to 12.6 cm in diameter, with the proximal aspect located laterally to the distal aspect, and caliber transition in the mesenteric root of both entry points. However, there is stool within the proximal portion which appears to be at least partially contrast opacified, and no definite persisting of the vascular pedicle demonstrated. The liver, gallbladder, bile ducts, pancreas, spleen, adrenals, kidneys are unremarkable. There are accessory splenules demonstrated. No retroperitoneal or mesenteric mass or adenopathy. No pelvic mass or adenopathy. The prostate is enlarged and protrudes into the inferior bladder. The bladder is thick-walled. Previously demonstrated Avalos catheter has been removed. Again demonstrated is a large right pleural effusion and a moderate to large left pleural effusion. Again demonstrated are compressive atelectatic changes of significant portions of both lower lobes. Pacemaker wires are seen within the heart. Previously demonstrated high attenuation focus within the right pectineus muscle is not evident. However, there is a low-attenuation area which measures 2 cm diameter centrally which is not evident previously. There is diffuse edema of the subcutaneous fat. This is less severe than was demonstrated previously. There are degenerative proliferative changes of the lumbar spine. Impression: Abnormal configuration of the sigmoid colon, with marked distention of a sigmoid, inversion of the relationships of the proximal and descending colon, and evidence of immediately apposed transition point raises concern for sigmoid volvulus. However, similarity to the prior exam, presence of what appears to be contrast opacified stool within the dilated segment, and lack of evidence of twisting of the vascular pedicle raises the possibility that this is baseline for this patient or possibly dysfunctional in nature. Correlate with clinical findings Enlarged prostate with protrusion into the bladder floor. Bladder neoplasm not completely excludable as a result Thick-walled bladder, may indicate cystitis or be due to chronic bladder lumen obstruction related to the above Abnormalities right pectineus muscle, with a 2 cm central low attenuation area. Note that previous exam have a high attenuation focus suspicious for a small pseudoaneurysm. 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 Colonic diverticulosis. No evidence of diverticulitis Gastrostomy in good position Rectal tube in good position Large right and moderate to large left pleural effusions. Resultant compressive pulmonary atelectatic changes or graft edema subcutaneous fat, less severe than was demonstrated on prior 08/17/2019 exam. Jonathan Urias Oct 24, 2019 18:17
--- NOTE | 2019-10-24 19:26 | NUR ---
NURSE HAND-OFF REPORT: Important Events on Shift: hypotensive, bolus fluid and albumin given Patient Status: stable Diet: Nepro 1.8 @ 45 mL/hr Pending Orders: HD liz 10/25/19 Pending Results/Labs:[] Pending MD notification:[] Latest Vital Signs: Temperature 98.2 , Pulse 77 , B/P 93 /41 , Respiratory Rate 13 , O2 SAT 100 , Mechanical Ventilator, O2 Flow Rate 15.0 . Vital Sign Comment: [] EKG Rhythm: V-Paced Rhythm change?: N MD Notified?: N - MD Response: Latest Delacruz Fall Score: 70 Fall Risk: High Risk Safety Measures: Call light Within Reach, Bed Alarm Zone 2, Side Rails Side Rails x2, Bed position Low and Locked. Fall Precautions: Yellow Socks Yellow Gown Patient Fall Education Report given to TAMICA Love.
--- NOTE | 2019-10-24 19:43 | NUR ---
NURSE NOTES: Per previous nurse, "short of IV pumps throughout hospital." CN and Physical Medicine Physician was made aware. 12PM Lindsay wallace at 1930 today. Will continue monitoring.
--- NOTE | 2019-10-24 19:44 | NUR ---
"NURSE NOTES: Pt obtunded upon assessment. OMER. Pt contracted and resistive to care. Hypotensive during shift with systolic in the 80's. Elevated lower extremities. 5-lead EKG shows V-pacing IV site patent and intact - made aware of new orders to DC IV fluids. Vent A/C 12 | Vt 550 | 24% fiO2 saturating at 99% G-tube patent and intact with 0 residual running Nepro at 45. Made aware of alterations in skin integrity. Bed kept in lowest and locked position. Bed alarm on. Will continue monitoring."
[2019-10-24] MEDS: Dyna-Hex 2% Top Sol 2oz TOPIC SCH (21:09)
--- NOTE | 2019-10-24 22:00 | NUR ---
NURSE NOTES: Pt continues to be hypotensive in the 80's - 90's systolic. Feeding Held to elevate lower extremities and lower HOB. will monitor.
--- NOTE | 2019-10-24 22:25 | General Progress Note ---
Assessment/Plan Assessment/Plan: Assessment - abdominal distention, due to colonic dysmotility, - colonoscopy negative to hepatic flexure - diarrhea - presumed TF related - abnormal LFT - ? etiology --> HIDA negative and CT negative - Anemia - leukocytosis - stool OB (+) - EGD --> gastritis - Renal failure - Anasarca - resp failure, trach - b/l pleural effusions - dysphagia, GT - encephalopathy, contracted - poor px Recommendations - continue TF - check hepatitis markers - rectal tube - roll side to side as feasible (hard due to severe contractions) - Elevate HOB - f/u labs - PPI - abx - supportive care Subjective Allergies: Coded Allergies: No Known Allergies (Unverified , 06/10/19) Subjective above noted NAD on TF Objective Last 24 Hour Vital Signs Date Time Temp Pulse Resp B/P (MAP) Pulse Ox O2 Delivery O2 Flow Rate FiO2 10/24/19 21:23 74 84/46 (59) 10/24/19 21:00 78 88/62 10/24/19 20:00 97.8 80 18 88/62 (71) 100 10/24/19 18:58 77 13 24 10/24/19 16:45 98.2 82 20 93/41 (58) 100 10/24/19 16:19 96 10/24/19 16:00 24 10/24/19 16:00 Mechanical Ventilator 10/24/19 14:58 90 17 24 10/24/19 12:00 Mechanical Ventilator 10/24/19 12:00 98.1 84 21 96/49 (65) 100 10/24/19 12:00 24 10/24/19 11:49 85 10/24/19 10:55 100.4 10/24/19 10:43 104 18 24 10/24/19 09:24 117 115/69 10/24/19 09:23 115/69 10/24/19 08:00 111 10/24/19 08:00 98.0 117 21 115/69 (84) 99 10/24/19 08:00 24 10/24/19 08:00 Mechanical Ventilator 10/24/19 07:15 116 19 24 10/24/19 04:00 98.6 100 18 124/62 (82) 100 10/24/19 04:00 24 10/24/19 04:00 Mechanical Ventilator 10/24/19 03:31 113 9/15/20 03:19 113 20 24 10/24/19 00:00 24 10/24/19 00:00 97.9 103 18 98/50 (66) 100 10/24/19 00:00 Mechanical Ventilator 10/23/19 23:54 100 22 24 10/23/19 23:26 102 Intake and Output 10/23/19 10/24/19 19:00 07:00 Intake Total 420 ml 540 ml Output Total 60 ml 2000 ml Balance 360 ml -1460 ml Free Water 60 ml Tube Feeding 360 ml 540 ml Stool Total 60 ml Hemodialysis UF 2000 ml Laboratory Tests 10/23/19 23:12: POC Whole Blood Glucose 224H 10/24/19 03:00: Sodium Level 134L, Potassium Level 3.9, Chloride Level 96L, Carbon Dioxide Level 25, Anion Gap 14, Blood Urea Nitrogen 52H, Creatinine 3.0H, Estimat Glomerular Filtration Rate 20.3, Glucose Level 196H, Calcium Level 6.9L, Total Bilirubin 0.5, Aspartate Amino Transf (AST/SGOT) 311H, Alanine Aminotransferase (ALT/SGPT) 210H, Alkaline Phosphatase 377H, Total Protein 9.5H, Albumin 2.0L, Globulin 7.5, Albumin/Globulin Ratio 0.3L 10/24/19 05:16: POC Whole Blood Glucose 234H 10/24/19 12:11: POC Whole Blood Glucose 171H 10/24/19 18:21: POC Whole Blood Glucose 184H Height (Feet): 5 Height (Inches): 10.00 Weight (Pounds): 123 Objective Debilitated AA man NCAT (+) trach coarse BS RR abd less distended, anasarca, (+) GT, (+) rectal tube ext contracted Ronny Mustafa MD Oct 24, 2019 22:25
[2019-10-25] VITALS (10 sets, daily range): BP systolic 74–106; BP diastolic 38–73
--- NOTE | 2019-10-25 02:00 | NUR ---
NURSE NOTES: Blood pressure up to 109/65. Feeding restarted. Will continue monitoring.
--- NOTE | 2019-10-25 05:00 | NUR ---
NURSE NOTES: Sustaining blood pressure in the 100's. Will endorse to hold Metoprolol in AM. Pt in stable condition with no signs of distress or bleeding noted.
[2019-10-25 05:39] LABS: HEMATOCRIT 27.5 % (42.0-52.0); HEMOGLOBIN 8.6 G/DL (14.2-18.0); MEAN CORPUSCULAR VOLUME 75 FL (80-99); PLATELET COUNT 566 K/UL (150-450); RED BLOOD COUNT 3.67 M/UL (4.70-6.10); RED CELL DISTRIBUTION WIDTH 16.4 % (11.6-14.8)
[2019-10-25] MEDS: Piperacillin/Tazobactam 2.25 GM in D5W 55 ML IVPB SCH ×3 (05:54→20:17)
[2019-10-25] MEDS: NovoLOG Insulin Flexpen SUBQ SCH ×5 (05:55→23:40)
[2019-10-25] MEDS ORDERED: Heparin 1000 units/ml 1ml Vial INJ PRN (06:00)
[2019-10-25] MEDS ORDERED: Heparin Sod 1000 units/ml 10ml IV PRN (06:00)
[2019-10-25 06:08] LABS: WHITE BLOOD COUNT 27.6 K/UL (4.8-10.8)
[2019-10-25 06:16] LABS: CALCIUM 7.5 MG/DL (8.5-10.1); CREATININE 4.1 MG/DL (0.55-1.30); POTASSIUM 3.1 MMOL/L (3.5-5.1)
--- NOTE | 2019-10-25 07:14 | Hematology/Onc Progress Note ---
Assessment/Plan Assessment/Plan Assessment/recs # Anemia due to chronic disease/kidney disease as well, gi bleed + occult + noted --> was on iron in the past, now on hold --> has been started on Epogen sq --> as per renal care --> egd done and shows gastritis --> on ppi --> egd showed gastritis, colo recently done --> hgb 9-->8. 7-->7.6-->9.2-->8.9-->9.2->9.3-->8.8->9.9-->9.2-->8.1-->8.7-->7.9-->8.6-->8.9--> 8.2->9-->9.3->8.9-->9.5-->10.6->9.2-->10->8.9--> 8.3-->8.9-->9.9-->9.3-->9-->9.3->11-->8.6 --> spep ordered->wnl # Leukocytosis - with multiple infections, VRE UTI, flow is negative --> wbc trend 33-->28-->25->23->22->23->24->17.3-->17-->14->16-->15.6-->14-->14->13->19->18->1 7->22->22->19->17-->18->20-->15-->14->16-->14-->17->18-->17->15-->16-->17->28 --> on abx, linezolid and zosyn--> zosyn-->gent-->off-->vanc/zosyn --> + blood cultures with coag neg staph likely contaminated --> as per id recs --> has ordered a flow cytometry (with pathology) --> does show increased nK cell activity --> JOURDAN 2 and bcr-abl labs ordered (these are send outs)->negative --> plt 585-->613-->649-->669->663-->529-->506-->620-->720 # Elevated ddimer on admission --> duplex lower legs neg for dvt # Respiratory failure --> per pulm, s/p trach --> COVID 19 test negative x 2 # Hyperlipidemia --> statin po # Dysphagia s/p gtube with nepro --> per gi # ESRD with r fem julito --> hd as per renal # Dvt ppx lovenox sq Appreciate consultation and matt Rn Subjective Constitutional: Denies: no symptoms, chills, fever, malaise, weakness, other Allergies: Coded Allergies: No Known Allergies (Unverified , 06/10/19) All Systems: reviewed and negative except above Subjective 08/15 meds noted, no bleeding, hgb 8.8, wbc 28, path flow pending 08/16 flow pending dw pathologist, results pending, wbc 25, hgb 9 08/17 labs reviewed, meds reviewed, meds noted, no night sweats 08/19 remains obtunded, on vent/trach, no bleeding wbc 21.7 08/20 labs have been reviewed, no bleeding, wbc still elev, path reviewed 08/21 labs are noted, no bleeding, on vent, wbc better 08/22 labs noted, no bleeding, meds reviewed, wbc 24 hgb 7.6 08/23 vent, off abx, c diff negative, h/h stable 08/24 labs reviewed, on abx, wbc 17, hgb 8.9, no hemolysis 08/26 reviewed flow and is negative for leukemia, matt rn 08/27 meds reviewed, no night sweats, matt rn, no major bleeding 08/28 meds reivewed, labs noted 08/29 wbc is stable, approx 15, hgb 8.8, no hemolysis 08/30 labs are noted, is for colo today, hgb 9.9 08/31 right fem julito in place, unchanged, hgb 9.2, gi aware 09/01 labs noted, hgb 8.8, plt >600, no bleeding 09/02 labs noted, no bleeding, with elev wbc still, no new changes 09/03 meds are noted, no bleeding, labs reviewed hgb 8.6 09/04 no major events, hd as per renal, abx, no bleeding hgb low 09/05 labs are noted, no bleeding, meds have been reviewed 09/06 no new labs no hemolysis, cbc is noted, no bleeding 09/07 meds reviewed, no bleeding, matt rn, permacath functioning well 09/09 meds reviewed, wbc still elevated, as per id recs, cbc noted 09/10 is obtunded, with gutbe in place, labs reviewed 09/11 obtunded, as per id, observe now off abx, labs noted, wbc 19 09/12 cbc is pending, remains on epogen, also off abx 09/13 labs reviewed, no bleeding, elev wbc, no night sweats 09/14 meds noted, no bleeding, wbc 19, hgb 9.5, no night sweats 09/21 obtunded, remains on vent, labs noted, no bleeding, hgb 8.9 09/22 obtunded, labs noted, no bleeding, on vent, unchanged 09/23 unchanges, wbc remains elevated 20k, on abx, on vent 09/24 labs have been reviewed, no bleeding, wbc 15, may need abx 09/25 formula gtube changed, labs noted, remains obtunded, hgb 9.3 09/26 labs have been reviewed, no bleeding, matt rn, no night sweats 09/27 meds reviewed, no bleeding, wbc 14, on abx, remains obtunded 09/28 remains obtunded, no bleeding, wbc better, hgb 8.9, no hemolysis, plt 506 09/30 on colisitn, wbc elevated, cefepime added per id, hgb stable 10/01 labs reviewed, no bleeding, matt rn, no major events noted, wbc 14, hgb 10.6 10/02 labs have been noted, hgb 9.2, wbc 17, on abx, matt wright 10/03 continue on tube feeds, no bleeding, on vent, wbc remains elevated 10/04 remains ibtunded, is on a mechanical ventilator with tube feeds noted 10/05 labs are noted, hgb 8.6, wbc remains elevated, have ordered for spep 10/07 obtunded on vent, with gtube feeds, labs reviewed, matt rn 10/08 labs are noted, on vent/trach, hgb 10.2, remains obtunded 10/09 labns noted, wbc 15, hgb 8.9, remains altered, on tfs 10/10 labs noted, holding tube feeds, matt rn, hg stable 8.3 currently 10/11 remains on tfs, supportive care, labs noted, no bleeding 10/12 remains obtunded, hgb 8.9, no hemolysis is seen 10/14 labs reviewed, no bleeding, pending potential hd if rn available 10/15 is on vent, with gtube, labs reviewed, no bleeding, to get hd soon 10/16 remains on vent, matt rn at bedside, wbc 15, abx prn, plt also higher, will monitor 10/17 on vent, continue on tube feeds via gtube, labs improved 10/18 labs noted, remains on vent, and tube feeds, no major changes 10/19 nad, no bleeding, labs reviewed, no night sweats, bp elevated, cards aware 10/21 labs pending, with gtube running, on mec vent, abx off 10/22 labs reviewed, no major changes, wbc 18, plt 791k, on gtube feeds 10/23 labs reviewed, meds noted, on epogen and lovenox sq, obtunded, is nv 9.16 labs are noted, wbc 28, hgb 8.6, no hemolysis is noted Objective Objective Current Medications Medications (Trade) Dose Ordered Sig/Leonel Route PRN Reason Start Time Stop Time Status Last Admin Dose Admin Acetaminophen (Tylenol) 650 mg Q6H PRN GT Temp >100.5 10/21/19 20:45 11/20/19 20:44 10/24/19 10:25 Acyclovir (Zovirax) 400 mg Q12HR ORAL 10/23/19 13:00 11/22/19 12:59 10/24/19 21:10 Albumin Human 250 ml @ 250 mls/hr Q1H PRN IV sbp<90 during hd 10/25/19 06:00 10/25/19 23:59 Chlorhexidine Gluconate (Felipa-Hex 2%) 1 applic DAILY@2000 TOPIC 09/12/19 20:00 12/11/19 19:59 10/24/19 21:09 Clonidine HCl (Catapres Tab) 0.1 mg Q4H PRN GT For High Blood Pressure 09/09/19 12:30 12/08/19 05:29 09/15/19 04:10 Dextrose (Dextrose 50%) 25 ml Q30M PRN IV Hypoglycemia 08/09/19 07:30 11/07/19 07:29 Dextrose (Dextrose 50%) 50 ml Q30M PRN IV Hypoglycemia 08/09/19 07:30 11/07/19 07:29 Enoxaparin Sodium (Lovenox) 30 mg DAILY SUBQ 10/24/19 09:00 01/22/20 08:59 10/24/19 09:21 Epoetin Andreas (Epoetin Andreas(ESRD on dialysis)) 8,000 unit WED-WED-WED SUBQ 10/25/19 21:00 01/23/20 20:59 Famotidine (Pepcid) 20 mg DAILY GT 08/30/19 09:00 11/28/19 08:59 10/24/19 09:21 Heparin Sodium (Porcine) (Heparin Sod 1000 units/ml 10ml) 2,000 unit ONCE PRN IV HD 10/25/19 06:00 10/25/19 23:59 Heparin Sodium (Porcine) (Heparin) 1,000 unit POSTHD PRN INJ POST HD 10/25/19 06:00 10/25/19 23:59 Insulin Aspart (NovoLOG) Q6HR SUBQ 09/25/19 18:00 11/07/19 11:29 10/25/19 05:55 Lactobacillus Acidophilus (Culturelle) 1 tab EVERY 12 HOURS GT 10/03/19 21:00 12/13/19 17:59 10/24/19 21:09 Loperamide HCl (Imodium) 2 mg Q6H PRN NG Diarrhea 10/15/19 07:45 11/14/19 07:44 Metoprolol Tartrate (Lopressor) 200 mg Q12HR GT 08/09/19 09:00 11/07/19 08:59 10/24/19 09:24 Minoxidil (Loniten) 5 mg DAILY GT 08/09/19 09:00 11/07/19 08:59 10/24/19 09:23 Piperacillin Sod/ Tazobactam Sod 2.25 gm/Dextrose 55 ml @ 110 mls/hr Q8H IVPB 10/24/19 12:00 10/31/19 11:59 10/25/19 05:54 Sodium Chloride 1,000 ml @ 500 mls/hr Q2H PRN IVLG sbp<90 during hd 10/25/19 06:00 10/25/19 23:59 Vancomycin HCl (Vanco pharmacy to dose) 1 ea DAILY PRN MISC Per rx protocol 10/24/19 11:00 11/23/19 10:59 Vancomycin HCl 500 mg/Sodium Chloride 100 ml @ 100 mls/hr ONCE IVPB 10/25/19 09:00 10/25/19 10:00 Zinc Oxide (Zinc Oxide) 1 applic EVERY 12 HOURS TOPIC 10/03/19 09:00 11/08/19 17:59 10/24/19 21:10 Last 24 Hour Vital Signs Date Time Temp Pulse Resp B/P (MAP) Pulse Ox O2 Delivery O2 Flow Rate FiO2 10/25/19 04:00 Mechanical Ventilator 10/25/19 04:00 98.0 80 18 105/57 (73) 100 10/25/19 04:00 80 10/25/19 04:00 24 10/25/19 02:23 79 12 24 10/25/19 02:00 77 106/58 (74) 100 10/25/19 00:00 24 10/25/19 00:00 97.7 80 18 86/45 (59) 100 10/25/19 00:00 Mechanical Ventilator 10/24/19 23:35 79 10/24/19 22:39 71 13 24 10/24/19 22:00 80 91/43 (59) 100 10/24/19 21:23 74 84/46 (59) 10/24/19 21:00 78 88/62 10/24/19 20:00 24 10/24/19 20:00 Mechanical Ventilator 10/24/19 20:00 97.8 80 18 88/62 (71) 100 10/24/19 19:31 78 10/24/19 18:58 77 13 24 10/24/19 16:45 98.2 82 20 93/41 (58) 100 10/24/19 16:19 96 10/24/19 16:00 24 10/24/19 16:00 Mechanical Ventilator 10/24/19 14:58 90 17 24 10/24/19 12:00 Mechanical Ventilator 10/24/19 12:00 98.1 84 21 96/49 (65) 100 10/24/19 12:00 24 10/24/19 11:49 85 10/24/19 10:55 100.4 10/24/19 10:43 104 18 24 10/24/19 09:24 117 115/69 10/24/19 09:23 115/69 10/24/19 08:00 111 10/24/19 08:00 98.0 117 21 115/69 (84) 99 10/24/19 08:00 24 10/24/19 08:00 Mechanical Ventilator 10/24/19 07:15 116 19 24 10/24/19 04:00 98.6 100 18 124/62 (82) 100 10/24/19 04:00 24 10/24/19 04:00 Mechanical Ventilator 10/24/19 03:31 113 10/24/19 03:19 113 20 24 10/24/19 00:00 24 10/24/19 00:00 97.9 103 18 98/50 (66) 100 10/24/19 00:00 Mechanical Ventilator 10/23/19 23:54 100 22 24 10/23/19 23:26 102 10/23/19 20:32 105 100/54 10/23/19 20:00 98.2 105 18 110/54 (72) 100 10/23/19 20:00 Mechanical Ventilator 10/23/19 20:00 24 10/23/19 20:00 107 10/23/19 16:00 24 10/23/19 16:00 97.3 94 18 114/58 (76) 100 10/23/19 16:00 Mechanical Ventilator 10/23/19 16:00 99 10/23/19 15:40 85 18 24 10/23/19 12:00 98.1 95 20 99/48 (65) 100 10/23/19 12:00 24 10/23/19 12:00 Mechanical Ventilator 10/23/19 11:59 90 10/23/19 11:06 92 14 24 10/23/19 08:16 104 100/55 10/23/19 08:16 100/55 10/23/19 08:00 98.6 104 19 100/55 (70) 100 10/23/19 08:00 Mechanical Ventilator 10/23/19 07:47 24 10/23/19 07:47 104 10/23/19 07:22 103 17 24 Intake and Output 10/24/19 10/25/19 19:00 07:00 Intake Total 560 ml 590 ml Output Total 200 ml 100 ml Balance 360 ml 490 ml Free Water 200 ml 100 ml IV Total 220 ml Tube Feeding 360 ml 270 ml Stool Total 200 ml 100 ml Labs Test 10/22/19 11:19 10/22/19 16:53 10/23/19 00:51 10/23/19 04:38 POC Whole Blood Glucose 200 MG/DL (74-106) Iron Level 20 ug/dL (50-175) Total Iron Binding Capacity 151 ug/dL (250-450) Percent Iron Saturation 13 % (15-50) Unsaturated Iron Binding 131 ug/dL (112-346) Total Bilirubin 0.4 MG/DL (0.2-1.0) Direct Bilirubin 0.2 MG/DL (0.0-0.3) Aspartate Amino Transf (AST/SGOT) 159 U/L (15-37) Alanine Aminotransferase (ALT/SGPT) 137 U/L (12-78) Alkaline Phosphatase 316 U/L (46-116) Total Creatine Kinase 473 U/L (26-308) Total Protein 8.7 G/DL (6.4-8.2) Albumin 2.1 G/DL (3.4-5.0) Anti-Nuclear Antibody Screen Negative (Negative) Keith-Rahman Virus Capsid Ag IgM Ab <36.0 U/mL (0.0-35.9) Test 10/23/19 05:06 10/23/19 11:26 10/23/19 15:54 10/23/19 23:12 POC Whole Blood Glucose 158 MG/DL (74-106) 192 MG/DL (74-106) 224 MG/DL (74-106) Test 10/24/19 03:00 10/24/19 05:16 10/24/19 12:11 10/24/19 18:21 Sodium Level 134 MMOL/L (136-145) Potassium Level 3.9 MMOL/L (3.5-5.1) Chloride Level 96 MMOL/L (98-107) Carbon Dioxide Level 25 MMOL/L (21-32) Anion Gap 14 mmol/L (5-15) Blood Urea Nitrogen 52 mg/dL (7-18) Creatinine 3.0 MG/DL (0.55-1.30) Estimat Glomerular Filtration Rate 20.3 mL/min (>60) Glucose Level 196 MG/DL (74-106) Calcium Level 6.9 MG/DL (8.5-10.1) Total Bilirubin 0.5 MG/DL (0.2-1.0) Aspartate Amino Transf (AST/SGOT) 311 U/L (15-37) Alanine Aminotransferase (ALT/SGPT) 210 U/L (12-78) Alkaline Phosphatase 377 U/L (46-116) Total Protein 9.5 G/DL (6.4-8.2) Albumin 2.0 G/DL (3.4-5.0) Globulin 7.5 g/dL Albumin/Globulin Ratio 0.3 (1.0-2.7) POC Whole Blood Glucose 234 MG/DL (74-106) 171 MG/DL (74-106) 184 MG/DL (74-106) Test 10/25/19 01:06 10/25/19 04:35 10/25/19 05:52 POC Whole Blood Glucose 120 MG/DL (74-106) White Blood Count 27.6 K/UL (4.8-10.8) Red Blood Count 3.67 M/UL (4.70-6.10) Hemoglobin 8.6 G/DL (14.2-18.0) Hematocrit 27.5 % (42.0-52.0) Mean Corpuscular Volume 75 FL (80-99) Mean Corpuscular Hemoglobin 23.3 PG (27.0-31.0) Mean Corpuscular Hemoglobin Concent 31.1 G/DL (32.0-36.0) Red Cell Distribution Width 16.4 % (11.6-14.8) Platelet Count 566 K/UL (150-450) Mean Platelet Volume 5.9 FL (6.5-10.1) Neutrophils (%) (Auto) % (45.0-75.0) Lymphocytes (%) (Auto) % (20.0-45.0) Monocytes (%) (Auto) % (1.0-10.0) Eosinophils (%) (Auto) % (0.0-3.0) Basophils (%) (Auto) % (0.0-2.0) Sodium Level 133 MMOL/L (136-145) Potassium Level 3.1 MMOL/L (3.5-5.1) Chloride Level 96 MMOL/L (98-107) Carbon Dioxide Level 24 MMOL/L (21-32) Anion Gap 13 mmol/L (5-15) Blood Urea Nitrogen 84 mg/dL (7-18) Creatinine 4.1 MG/DL (0.55-1.30) Estimat Glomerular Filtration Rate 14.2 mL/min (>60) Glucose Level 136 MG/DL (74-106) Calcium Level 7.5 MG/DL (8.5-10.1) Phosphorus Level 3.0 MG/DL (2.5-4.9) Random Vancomycin Level 17.9 ug/mL Height (Feet): 5 Height (Inches): 10.00 Weight (Pounds): 123 Objective Physical Exam General Appearance: nad, Chronically Ill Head: normocephalic Eyes: right eye PERRL - Will not open left eye ENT: moist mucus membranes Neck: other - submandibular mass R, fairly rigid with resistance to rotation to L, tracheotomy Respiratory: decreased breath sounds, crackles, other - pacemaker, vent+ Cardiovascular: regular rate, rhythm, edema - anasarca Gastrointestinal: non tender, distended, other - G tube Genitourinary: other Musculoskeletal: other - Contractures all extremities Neurologic: sensory intact, motor weakness, responsive Psychiatric: other Skin: Decubitus/Ulcer - Stage III right elbow, stage III left elbow, stage II sacrum, stage III scrotum, warm/dry Fitz Campos MD Oct 25, 2019 07:14
--- NOTE | 2019-10-25 07:15 | NUR ---
RESPIRATORY NOTE: PT RECEIVED ON CMV WITH CURRENT SETTINGS. AC/VC: 12, 550, 24%, +5. ALARMS ARE ON AND AUDIBLE. VENT CIRCUIT IS SECURE AND OUT OF THE WAY. NO S/S OF RESPIRATORY DISTRESS NOTED AT THIS TIME. WILL CONTINUE TO MONITOR.
--- NOTE | 2019-10-25 07:20 | NUR ---
NURSE NOTES: Received report from TAMICA Love. Patient in bed resting, no active s/s cardiac, respiratory distress noticed at this time except low blood pressure 86/39 HR 79 V paced. Trach to vent Portex 8 Ac 12 TV 550 PEEP 5 O2 sat 95%. GT feeding on hold per order, Nephro @ 45, Rectal tube draining well to gravity at this time. IV on left FA 20G, asymptomatic, patent, intact. Right SC PermaCath patent, intact. Bed in lowest position, side rails upx3, call light within reach, bed alarm on, Will continue to monitor.
--- NOTE | 2019-10-25 07:41 | NUR ---
NURSE HAND-OFF REPORT: Important Events on Shift: Hypotension Patient Status: Stable Diet: Nepro Pending Orders: N Pending Results/Labs: Y Pending MD notification: Y Latest Vital Signs: Temperature 98.0 , Pulse 80 , B/P 105 /57 , Respiratory Rate 18 , O2 SAT 100 , Mechanical Ventilator, O2 Flow Rate 15.0 . Vital Sign Comment: Hypotensive; Afebrile EKG Rhythm: V-Paced Rhythm change?: N MD Notified?: N - MD Response: Latest Delacruz Fall Score: 70 Fall Risk: High Risk Safety Measures: Call light Within Reach, Bed Alarm Zone 2, Side Rails Side Rails x3, Bed position Low and Locked. Fall Precautions: Yellow Socks Yellow Gown Patient Fall Education Report given to TAMICA العلي.
--- NOTE | 2019-10-25 07:54 | NUR ---
RD ASSESSMENT & RECOMMENDATIONS SEE CARE ACTIVITY FOR COMPLETE ASSESSMENT DAILY ESTIMATED NEEDS: Needs based on Renal, critical care, wound/ 61kg 22-30 kcals/kg 6090-8856 total kcals 1.25-2 g protein/kg 76-122 g total protein Fluid per MD, now on HD NUTRITION DIAGNOSIS: * Swallowing difficulty R/T respiratory failure, dysphagia as evidenced by trach/vent dep, PEG dep * Increased kcal/prot needs R/T wound healing as evidenced by admitted w/ multiple pressure injuries including full thickness wounds at junction of Shaft of penis, dorsal scrotum, R elbow, and DTPI @ L buttocks. CURRENT TF:NEPRO @45ml/hr x20 hrs ENTERAL NUTRITION RECOMMENDATIONS: Nepro @45ml/hr x20 hrs + Prosource x1 qdaily to provide 900ml, 1620 kcal, 73g + 11g pro, 654 ml free H2O - Maintain Nepro @goal, as tolerated. - Add PROSOURCE qdaily (11g pro) to better meet est pro needs - Flush per MD/ HOB over 30 degrees. -> If tolerating well, would rec increase to goal of 50ml/hr x20 hrs for 1L, 1800 kcal, 81g pro, 727ml free H2O as daily wts are unclear, and continue to trend wt. ADDITIONAL RECOMMENDATIONS: * Per SNF: HT=63" QS=971 lbs (vs EMR wt of 166lbs) -> obtain re-calibrated bedscale wt, rec daily wt monitoring * Wound healing: con't Nephrovite + Garo BID/ Vit C dosing per Nephro * Monitor renal fxn and lytes closely w/ non-renal TF (K=5.0, 5.5-> wnl) -> Rec increased insulin w/ BG labs (on peter q6) * Monitor BGs w/ noncarb controlled TF, need for long acting insulin * Monitor stool output, need to change TF again-> stool more pasty
--- NOTE | 2019-10-25 08:00 | NUR ---
NURSE NOTES: BP rechecked 101/73 HR 79
[2019-10-25] MEDS: Zinc Oxide Oint 2oz TOPIC SCH ×2 (08:31→20:18)
[2019-10-25] MEDS: Lactobacillus-GG tablet GT SCH ×2 (08:31→20:18)
[2019-10-25] MEDS: Acyclovir 200mg Cap ORAL SCH ×2 (08:31→20:18)
[2019-10-25] MEDS: Enoxaparin 30mg Inj SUBQ SCH (08:35)
[2019-10-25] MEDS: Metoprolol Tartrate 100mg tab GT SCH ×2 (08:36→20:19)
[2019-10-25] MEDS: Minoxidil 2.5mg tab GT SCH (08:36)
--- NOTE | 2019-10-25 09:47 | General Progress Note ---
Assessment/Plan Assessment/Plan: IMPRESSION: 1. anemia. 2. fevers improved 3. Leukocytosis. 4. hypotension 5. Acute on chronic renal failure. 6. Hyponatremia. 7. Severe protein-calorie malnutrition. 8. Significantly elevated C-reactive protein concerning for infectious etiology. 9. Tracheostomy, G-tube. 10. Ventilator dependence. 11. anasarca 12. Hematuria 13. V pacing 14. hyponatremia 15. transaminitis, HIDA negative PLAN chronic care; unable to place care noted on vent/ no wean monitor labs and optimize ID follow up dialysis ongoing prognosis poor for recovery impression, plan, and exam edited and reviewed in detail care discussed with RN Subjective Allergies: Coded Allergies: No Known Allergies (Unverified , 06/10/19) Subjective remains ill on vent/ no change on HD vitals noted Objective Last 24 Hour Vital Signs Date Time Temp Pulse Resp B/P (MAP) Pulse Ox O2 Delivery O2 Flow Rate FiO2 10/25/19 08:36 74 101/73 10/25/19 08:36 101/73 10/25/19 08:00 97.7 74 16 101/73 (82) 95 10/25/19 07:30 79 86/39 (55) 10/25/19 04:00 Mechanical Ventilator 10/25/19 04:00 98.0 80 18 105/57 (73) 100 10/25/19 04:00 80 10/25/19 04:00 24 10/25/19 02:23 79 12 24 10/25/19 02:00 77 106/58 (74) 100 10/25/19 00:00 24 10/25/19 00:00 97.7 80 18 86/45 (59) 100 10/25/19 00:00 Mechanical Ventilator 10/24/19 23:35 79 10/24/19 22:39 71 13 24 10/24/19 22:00 80 91/43 (59) 100 10/24/19 21:23 74 84/46 (59) 10/24/19 21:00 78 88/62 10/24/19 20:00 24 10/24/19 20:00 Mechanical Ventilator 10/24/19 20:00 97.8 80 18 88/62 (71) 100 10/24/19 19:31 78 10/24/19 18:58 77 13 24 10/24/19 16:45 98.2 82 20 93/41 (58) 100 10/24/19 16:19 96 10/24/19 16:00 24 10/24/19 16:00 Mechanical Ventilator 10/24/19 14:58 90 17 24 10/24/19 12:00 Mechanical Ventilator 10/24/19 12:00 98.1 84 21 96/49 (65) 100 10/24/19 12:00 24 10/24/19 11:49 85 10/24/19 10:55 100.4 10/24/19 10:43 104 18 24 Intake and Output 10/24/19 10/25/19 19:00 07:00 Intake Total 560 ml 590 ml Output Total 200 ml 100 ml Balance 360 ml 490 ml Free Water 200 ml 100 ml IV Total 220 ml Tube Feeding 360 ml 270 ml Stool Total 200 ml 100 ml Laboratory Tests 10/24/19 12:11: POC Whole Blood Glucose 171H 10/24/19 18:21: POC Whole Blood Glucose 184H 10/25/19 01:06: POC Whole Blood Glucose 120H 10/25/19 04:35: White Blood Count 27.6*H, Red Blood Count 3.67L, Hemoglobin 8.6L, Hematocrit 27.5L, Mean Corpuscular Volume 75L, Mean Corpuscular Hemoglobin 23.3L, Mean Corpuscular Hemoglobin Concent 31.1L, Red Cell Distribution Width 16.4H, Platelet Count 566H, Mean Platelet Volume 5.9L, Neutrophils (%) (Auto) , Lymphocytes (%) (Auto) , Monocytes (%) (Auto) , Eosinophils (%) (Auto) , Basophils (%) (Auto) , Neutrophils % (Manual) [Pending], Lymphocytes % (Manual) [Pending], Platelet Estimate [Pending], Platelet Morphology [Pending], Sodium Level 133L, Potassium Level 3.1L, Chloride Level 96L, Carbon Dioxide Level 24, Anion Gap 13, Blood Urea Nitrogen 84H, Creatinine 4.1H, Estimat Glomerular Filtration Rate 14.2, Glucose Level 136H, Calcium Level 7.5L, Phosphorus Level 3.0, Random Vancomycin Level 17.9 10/25/19 05:52: POC Whole Blood Glucose [Pending] Height (Feet): 5 Height (Inches): 10.00 Weight (Pounds): 123 Objective GENERAL: Ill-appearing male, chronically debilitated. HEENT: Tracheostomy in midline. Questionable fullness in the submandibular region. LUNGS: Coarse breath sounds. reduced breath sounds CARDIAC: S1, S2. Regular rate and rhythm. borderline tachy ABDOMEN: Soft. G-tube. EXTREMITIES: With noted edema. NEUROLOGICAL: Poorly responsive, weak diffusely. Kain Ramirez MD Oct 25, 2019 09:47
--- NOTE | 2019-10-25 10:00 | NUR ---
NURSE NOTES: Dr. Lyle made aware of elevated WBC. Per MD, order C. Diff. Order noted, entered, carried out.
--- NOTE | 2019-10-25 10:45 | Infectious Diseases Prog Note ---
"Assessment/Plan Assessment/Plan antibiotics : acyclovir 10.23.19 - vancomycin iv, zosyn ..20- A 1. acenitobacter | proteus pneumonia s/p rx 2. respiratory failure 3. leucocytosis increased 4. COVID 19 test negative x 2 5. renal failure on HD 6. groin warts 7. fever improving P 1. continue acyclovir 8 more days 2. continue iv vancomycin, zosyn 3. stool for c.diff 4. start po vancomycin 5. will follow up cultures Subjective ROS Limited/Unobtainable: Yes Allergies: Coded Allergies: No Known Allergies (Unverified , 06/10/19) Objective Last 24 Hour Vital Signs Date Time Temp Pulse Resp B/P (MAP) Pulse Ox O2 Delivery O2 Flow Rate FiO2 10/25/19 08:36 74 101/73 10/25/19 08:36 101/73 10/25/19 08:00 97.7 74 16 101/73 (82) 95 10/25/19 07:30 79 86/39 (55) 10/25/19 04:00 Mechanical Ventilator 10/25/19 04:00 98.0 80 18 105/57 (73) 100 10/25/19 04:00 80 10/25/19 04:00 24 10/25/19 02:23 79 12 24 10/25/19 02:00 77 106/58 (74) 100 10/25/19 00:00 24 10/25/19 00:00 97.7 80 18 86/45 (59) 100 10/25/19 00:00 Mechanical Ventilator 10/24/19 23:35 79 10/24/19 22:39 71 13 24 10/24/19 22:00 80 91/43 (59) 100 10/24/19 21:23 74 84/46 (59) 10/24/19 21:00 78 88/62 10/24/19 20:00 24 10/24/19 20:00 Mechanical Ventilator 10/24/19 20:00 97.8 80 18 88/62 (71) 100 10/24/19 19:31 78 10/24/19 18:58 77 13 24 10/24/19 16:45 98.2 82 20 93/41 (58) 100 10/24/19 16:19 96 10/24/19 16:00 24 10/24/19 16:00 Mechanical Ventilator 10/24/19 14:58 90 17 24 10/24/19 12:00 Mechanical Ventilator 10/24/19 12:00 98.1 84 21 96/49 (65) 100 10/24/19 12:00 24 10/24/19 11:49 85 10/24/19 10:55 100.4 10/24/19 10:43 104 18 24 Height (Feet): 5 Height (Inches): 10.00 Weight (Pounds): 123 HEENT: status post trach Respiratory/Chest: lungs clear Cardiovascular: normal rate, regular rhythm, no gallop/murmur Abdomen: soft, non tender, other - GT Extremities: no edema, other - right subclavian catheter Laboratory Tests Test 10/24/19 12:11 10/24/19 18:21 10/25/19 01:06 10/25/19 04:35 POC Whole Blood Glucose 171 MG/DL (74-106) H 184 MG/DL (74-106) H 120 MG/DL (74-106) H White Blood Count 27.6 K/UL (4.8-10.8) *H Red Blood Count 3.67 M/UL (4.70-6.10) L Hemoglobin 8.6 G/DL (14.2-18.0) L Hematocrit 27.5 % (42.0-52.0) L Mean Corpuscular Volume 75 FL (80-99) L Mean Corpuscular Hemoglobin 23.3 PG (27.0-31.0) L Mean Corpuscular Hemoglobin Concent 31.1 G/DL (32.0-36.0) L Red Cell Distribution Width 16.4 % (11.6-14.8) H Platelet Count 566 K/UL (150-450) H Mean Platelet Volume 5.9 FL (6.5-10.1) L Neutrophils (%) (Auto) % (45.0-75.0) Lymphocytes (%) (Auto) % (20.0-45.0) Monocytes (%) (Auto) % (1.0-10.0) Eosinophils (%) (Auto) % (0.0-3.0) Basophils (%) (Auto) % (0.0-2.0) Neutrophils % (Manual) Pending Lymphocytes % (Manual) Pending Platelet Estimate Pending Platelet Morphology Pending Sodium Level 133 MMOL/L (136-145) L Potassium Level 3.1 MMOL/L (3.5-5.1) L Chloride Level 96 MMOL/L (98-107) L Carbon Dioxide Level 24 MMOL/L (21-32) Anion Gap 13 mmol/L (5-15) Blood Urea Nitrogen 84 mg/dL (7-18) H Creatinine 4.1 MG/DL (0.55-1.30) H Estimat Glomerular Filtration Rate 14.2 mL/min (>60) Glucose Level 136 MG/DL (74-106) H Calcium Level 7.5 MG/DL (8.5-10.1) L Phosphorus Level 3.0 MG/DL (2.5-4.9) Random Vancomycin Level 17.9 ug/mL Test 10/25/19 05:52 POC Whole Blood Glucose Pending Current Medications Medications (Trade) Dose Ordered Sig/Leonel Route PRN Reason Start Time Stop Time Status Last Admin Dose Admin Acetaminophen (Tylenol) 650 mg Q6H PRN GT Temp >100.5 10/21/19 20:45 11/20/19 20:44 10/24/19 10:25 Acyclovir (Zovirax) 400 mg Q12HR ORAL 10/23/19 13:00 11/22/19 12:59 10/25/19 08:31 Albumin Human 250 ml @ 250 mls/hr Q1H PRN IV sbp<90 during hd 10/25/19 06:00 10/25/19 23:59 Chlorhexidine Gluconate (Felipa-Hex 2%) 1 applic DAILY@1999 TOPIC 09/12/19 20:00 12/11/19 19:59 10/24/19 21:09 Clonidine HCl (Catapres Tab) 0.1 mg Q4H PRN GT For High Blood Pressure 09/09/19 12:30 12/08/19 05:29 09/15/19 04:10 Dextrose (Dextrose 50%) 25 ml Q30M PRN IV Hypoglycemia 08/09/19 07:30 11/07/19 07:29 Dextrose (Dextrose 50%) 50 ml Q30M PRN IV Hypoglycemia 08/09/19 07:30 11/07/19 07:29 Enoxaparin Sodium (Lovenox) 30 mg DAILY SUBQ 10/24/19 09:00 01/22/20 08:59 10/25/19 08:35 Epoetin Andreas (Epoetin Andreas(ESRD on dialysis)) 8,000 unit WED-WED-WED SUBQ 10/25/19 21:00 01/23/20 20:59 Famotidine (Pepcid) 20 mg DAILY GT 08/30/19 09:00 11/28/19 08:59 10/25/19 08:31 Heparin Sodium (Porcine) (Heparin Sod 1000 units/ml 10ml) 2,000 unit ONCE PRN IV HD 10/25/19 06:00 10/25/19 23:59 Heparin Sodium (Porcine) (Heparin) 1,000 unit POSTHD PRN INJ POST HD 10/25/19 06:00 10/25/19 23:59 Insulin Aspart (NovoLOG) Q6HR SUBQ 09/25/19 18:00 11/07/19 11:29 10/25/19 05:55 Lactobacillus Acidophilus (Culturelle) 1 tab EVERY 12 HOURS GT 10/03/19 21:00 12/13/19 17:59 10/25/19 08:31 Loperamide HCl (Imodium) 2 mg Q6H PRN NG Diarrhea 10/15/19 07:45 11/14/19 07:44 Metoprolol Tartrate (Lopressor) 200 mg Q12HR GT 08/09/19 09:00 11/07/19 08:59 10/24/19 09:24 Minoxidil (Loniten) 5 mg DAILY GT 08/09/19 09:00 11/07/19 08:59 10/24/19 09:23 Piperacillin Sod/ Tazobactam Sod 2.25 gm/Dextrose 55 ml @ 110 mls/hr Q8H IVPB 10/24/19 12:00 10/31/19 11:59 10/25/19 05:54 Sodium Chloride 1,000 ml @ 500 mls/hr Q2H PRN IVLG sbp<90 during hd 10/25/19 06:00 10/25/19 23:59 Vancomycin HCl (Vanco pharmacy to dose) 1 ea DAILY PRN MISC Per rx protocol 10/24/19 11:00 11/23/19 10:59 Zinc Oxide (Zinc Oxide) 1 applic EVERY 12 HOURS TOPIC 10/03/19 09:00 11/08/19 17:59 10/25/19 08:31 Farnaz Lyle MD Oct 25, 2019 10:45"
--- NOTE | 2019-10-25 11:00 | NUR ---
cancel hd today because severe hypotension by dr roman
--- NOTE | 2019-10-25 12:30 | NUR ---
NURSE NOTES: Paged Dr. Pichardo regarding HD, per MD no HD today, No new order received for K 3.1, Na 133, BP 105/48.
[2019-10-25] MEDS: Vancomycin oral 125mg/2.5ml ORAL SCH ×3 (12:35→20:17)
--- NOTE | 2019-10-25 14:08 | NUR ---
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
--- NOTE | 2019-10-25 14:23 | Surgery Progress Note ---
Surgery Progress Note Subjective Procedure Performed Right femoral temporary hemodialysis catheter removal Additional Comments no acute events comfortable stable Objective Last 24 Hour Vital Signs Date Time Temp Pulse Resp B/P (MAP) Pulse Ox O2 Delivery O2 Flow Rate FiO2 10/25/19 12:00 24 10/25/19 12:00 Mechanical Ventilator 10/25/19 12:00 83 10/25/19 12:00 97.5 83 14 105/48 (67) 99 10/25/19 10:45 82 13 24 10/25/19 08:36 74 101/73 10/25/19 08:36 101/73 10/25/19 08:00 Mechanical Ventilator 10/25/19 08:00 97.7 74 16 101/73 (82) 95 10/25/19 08:00 24 10/25/19 08:00 78 10/25/19 07:30 79 86/39 (55) 10/25/19 07:15 79 13 24 10/25/19 04:00 Mechanical Ventilator 10/25/19 04:00 98.0 80 18 105/57 (73) 100 10/25/19 04:00 80 10/25/19 04:00 24 10/25/19 02:23 79 12 24 10/25/19 02:00 77 106/58 (74) 100 10/25/19 00:00 24 10/25/19 00:00 97.7 80 18 86/45 (59) 100 10/25/19 00:00 Mechanical Ventilator 10/24/19 23:35 79 10/24/19 22:39 71 13 24 10/24/19 22:00 80 91/43 (59) 100 10/24/19 21:23 74 84/46 (59) 10/24/19 21:00 78 88/62 10/24/19 20:00 24 10/24/19 20:00 Mechanical Ventilator 10/24/19 20:00 97.8 80 18 88/62 (71) 100 10/24/19 19:31 78 10/24/19 18:58 77 13 24 10/24/19 16:45 98.2 82 20 93/41 (58) 100 10/24/19 16:19 96 10/24/19 16:00 24 10/24/19 16:00 Mechanical Ventilator 10/24/19 14:58 90 17 24 I&O Intake and Output 10/24/19 10/25/19 19:00 07:00 Intake Total 560 ml 590 ml Output Total 200 ml 100 ml Balance 360 ml 490 ml Free Water 200 ml 100 ml IV Total 220 ml Tube Feeding 360 ml 270 ml Stool Total 200 ml 100 ml Dressing: other Wound: other Cardiovascular: RSR Respiratory: decreased breath sounds Abdomen: soft, non-tender, present bowel sounds Extremities: no tenderness, no cyanosis Laboratory Tests Test 10/24/19 18:21 10/25/19 01:06 10/25/19 04:35 10/25/19 05:52 POC Whole Blood Glucose 184 MG/DL (74-106) H 120 MG/DL (74-106) H Pending White Blood Count 27.6 K/UL (4.8-10.8) *H Red Blood Count 3.67 M/UL (4.70-6.10) L Hemoglobin 8.6 G/DL (14.2-18.0) L Hematocrit 27.5 % (42.0-52.0) L Mean Corpuscular Volume 75 FL (80-99) L Mean Corpuscular Hemoglobin 23.3 PG (27.0-31.0) L Mean Corpuscular Hemoglobin Concent 31.1 G/DL (32.0-36.0) L Red Cell Distribution Width 16.4 % (11.6-14.8) H Platelet Count 566 K/UL (150-450) H Mean Platelet Volume 5.9 FL (6.5-10.1) L Neutrophils (%) (Auto) % (45.0-75.0) Lymphocytes (%) (Auto) % (20.0-45.0) Monocytes (%) (Auto) % (1.0-10.0) Eosinophils (%) (Auto) % (0.0-3.0) Basophils (%) (Auto) % (0.0-2.0) Differential Total Cells Counted 100 Neutrophils % (Manual) 86 % (45-75) H Lymphocytes % (Manual) 7 % (20-45) L Monocytes % (Manual) 6 % (1-10) Eosinophils % (Manual) 1 % (0-3) Basophils % (Manual) 0 % (0-2) Band Neutrophils 0 % (0-8) Platelet Estimate Increased H Platelet Morphology Normal Hypochromasia 2+ Anisocytosis 1+ Microcytosis 1+ Sodium Level 133 MMOL/L (136-145) L Potassium Level 3.1 MMOL/L (3.5-5.1) L Chloride Level 96 MMOL/L (98-107) L Carbon Dioxide Level 24 MMOL/L (21-32) Anion Gap 13 mmol/L (5-15) Blood Urea Nitrogen 84 mg/dL (7-18) H Creatinine 4.1 MG/DL (0.55-1.30) H Estimat Glomerular Filtration Rate 14.2 mL/min (>60) Glucose Level 136 MG/DL (74-106) H Calcium Level 7.5 MG/DL (8.5-10.1) L Phosphorus Level 3.0 MG/DL (2.5-4.9) Random Vancomycin Level 17.9 ug/mL Test 10/25/19 11:30 POC Whole Blood Glucose 135 MG/DL (74-106) H Plan Problems: (1) Anemia (2) Hyponatremia (3) Leukocytosis Assessment & Plan: Tracheostomy, left chest pacemaker are again demonstrated. There is bilateral interstitial and airspace disease and bilateral pleural fluid again demonstrated. This appears more severe than on the prior study. Bilateral interstitial and airspace infiltrates versus edema. Bilateral pleural effusions Leukocytosis, anemia, tachycardia, abnormal labs. Wound evaluated and likely etiology of patient's sepsis. Leukocytosis etiology work-up antibiotics per infectious disease Appreciate nephrology input transfuse with dialysis We will follow with recommendations thank you allowing participation's care plan HD access temp HD discussed with medical teams line okay HD as per renal persistent leukocytosis flow cyto noted improving trending down right fem line removed wbc fluctuating h/h stable lft's elevated There is a right pleural effusion Gallbladder demonstrates tiny wall adherent nonmobile echogenic foci, some possible mural calcifications, and comet tail artifact in the anterior wall. Patient unable to report sonographic Kent's sign. Common bile duct measures 4 mm in diameter. No intrahepatic biliary ductal dilatation. Liver demonstrates normal echogenicity, no focal abnormality. There is some surface nodularity. Portal vein and hepatic veins are patent. Pancreas is incompletely visualized due to overlying bowel gas, visualized portions are unremarkable. Spleen is unremarkable. Left kidney measures 8.7 cm in length. Right kidney measures 8.9 cm length. Both kidneys demonstrate increased echogenicity. There is no hydronephrosis. No focal abnormality . Abdominal aorta is partially obscured by bowel gas, visualized portions are non-aneurysmal . A gastrostomy is noted Impression: Tiny wall adherent nonmobile gallbladder echogenic foci, may reflect wall adherent calculi, small polyps, and/or pleural calcifications. Anterior wall comet tail artifact suggests foci of adenomyomatosis. Normal caliber common bile duct Possible hepatic surface nodularity, could indicate cirrhotic change Echogenic kidneys, consistent with medical renal disease. No hydronephrosis Right pleural effusion Gastrostomy Note nonvisualization of portions of the pancreas and abdominal aorta HIDA NEGATIVE trend labs (4) Ventilator dependent (5) Right lower lobe pneumonia (6) Hypokalemia (7) Hyperkalemia (8) Anasarca (9) Decubitus skin ulcer Assessment & Plan: pt presented on admission with generalized edemae.Skin as sessed under tracheostomy and no areas of concerns noted. GT Insertion is marginally erythematous with small amt slough at stoma. Unstageable Pressure Injury R elbow. Base of wound is 100% yellow slough,Borders are erythematous. Wound oozing small amt haemopurulent exudate.Darker skin tone without elevation in skin temp or erythema periwound. Pt's penis and scrotum are grossly edematous and enlarged and weeping serous exudate from numerous sites both from penis and scrotum. Two small open wounds noted at base of at base of shaft of penis ,and contreras aspect of scrotum. Both wounds oozing large amt sanguineous and serosanguineous exudate. Multiple open wounds with Biofilm at base of each wounds noted to contreras/lateral,inferior and posterior aspects of scrotum. These wounds noted to be oozing moderate amts of serosanguineous exudate. Hypertrophic scar with scattered areas of hyperpigme ntation noted to Sacrum. DTPI noted to L Buttocks (L)7cm x (W)9cm. Base of wound is purple and indurated.Darker skin tone without erythema,induration or fluctuance R and L ischial tuberosities. Both heels are boggy with non-blanchable erythema. Tx.Plan: Cleanse wound R elbow with Saline. Apply TheraHoney, Apply Moisture Barrier Paste periwound. Cover with Optifoam drsg.Change Daily and prn. Wash GT site with soap and water.Pat dry. Apply Zinc Oxide Paste to GT site Daily. Leave Open to Air. Apply Zinc Oxide Paste to entire Scrotum, Place ABD pads to R and L lateral, and posterior aspects of scrotum TWICE daily. Apply Cavilon Skin Barrier to malleoli and both Heels. Cover each site with Optifoam drsgs. Change every 7 days and prn. Reposition at least every 2hours or as tolerated. Off-load heels with Pillows. APM/BECCA Mattress overlay. (10) Malnutrition Assessment & Plan: DAILY ESTIMATED NEEDS: Needs based on Renal, critical care, wound/ 61kg 22-30 kcals/kg [id number] total kcals 1.25-2 g protein/kg 76-122 g total protein Fluid per MD, now on HD NUTRITION DIAGNOSIS: * Swallowing difficulty R/T respiratory failure, dysphagia as evidenced by trach/vent dep, PEG dep * Increased kcal/prot needs R/T wound healing as evidenced by admitted w/ multiple pressure injuries including full thickness wounds at junction of Shaft of penis, dorsal scrotum, R elbow, and DTPI @ L buttocks. CURRENT TF:Osmolite 1.2 @ 60ml/hr x 20 hrs + Garo BID ENTERAL NUTRITION RECOMMENDATIONS: Vital AF 1.2 @ 60ml/hr x 20 hrs to provide 1200ml, 1440kcal, 90g prot, 973ml free water * Rec 20 hr run time for GI rest. -> W/ improved GI status, rec Vital AF 1.2, an elemental and carb controlled TF -> monitor lytes and renal fxn closely, monitor need for renal TF -> TF @ goal will provide 1642mg K and 2025mg Phos -> HOB over 30 degrees/ water flush per MD -------- Trial of Osmolite 1.2 continue for now- Goal of 60ml/hr for 20 hrs (4 hrs bowel rest) to provide 1200ml, 1440 kcal, 67g pro, 984ml free H2O, -> Rec to add prosource 1 pack daily (11g pro) to better meet est pro needs. -> Monitor BG, K closely. Pt would require increased insulin coverage as TF at goal would provide 56g more carbs per day. ADDITIONAL RECOMMENDATIONS: * Per SNF: HT=63" LH=802 lbs (vs EMR wt of 166lbs) -> obtain re-calibrated bedscale wt, rec daily wt monitoring * Wound healing: con't Nephrovite + Garo BID/ Vit C dosing per Nephro * Monitor renal fxn and lytes closely w/ non-renal TF ->K low, phos wnl;updated mag level; rec increased insulin w/ BG labs * Daily wts w/ drop to 118-20 lbs, rec to recalibrate for accurate CBW * Consider DC Miralax if medically appropriate: +rectal tube (11) Uremia (12) CKD (chronic kidney disease) stage 5, GFR less than 15 ml/min (13) Colon distention Assessment & Plan: discussed with GI likely functional as having lots of loose bm rectal tube kub f/u s/p colonoscopy - findings reviewed with GI improved cont diet as tolerated Marked distention of the sigmoid colon. 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 No evidence of bowel wall thickening or pneumatosis 12 mm focus of contrast enhancement in the right pectineus muscle. While nonspecific in appearance, appearance raises concern for a possible pseudoaneurysm. Ill- defined thickening of the pectus medius muscle could indicate some intramuscular hemorrhage. The above findings were phoned to Dr. Urias at the time of interpretation Large bilateral pleural effusions Hazy pulmonary parenchymal opacities as well as dense consolidative opacities most likely represent pulmonary edema, but could represent pneumonia Evidence of anasarca elsewhere, with generalized edema of the subcutaneous fat Bladder wall thickening, raises concern for cystitis. Avalos catheter in place Colonic diverticulosis. No evidence of diverticulitis. Tracheostomy Pacemaker Gastrostomy Gastrostomy again demonstrated in satisfactory position. The stomach is otherwise unremarkable. The distal esophagus and duodenum are unremarkable. Ingested contrast reaches the colon. No small bowel distention or small bowel wall thickening. Interim placement of a rectal tube. There are a few colonic diverticula. No definite evidence of acute diverticulitis. The appendix is prominent in caliber, as previously No free or loculated intraperitoneal gas or fluid is evident. Again demonstrated is marked gaseous distention of the sigmoid colon which measures up to 12.6 cm in diameter, with the proximal aspect located laterally to the distal aspect, and caliber transition in the mesenteric root of both entry points. However, there is stool within the proximal portion which appears to be at least partially contrast opacified, and no definite persisting of the vascular pedicle demonstrated. The liver, gallbladder, bile ducts, pancreas, spleen, adrenals, kidneys are unremarkable. There are accessory splenules demonstrated. No retroperitoneal or mesenteric mass or adenopathy. No pelvic mass or adenopathy. The prostate is enlarged and protrudes into the inferior bladder. The bladder is thick-walled. Previously demonstrated Avalos catheter has been removed. Again demonstrated is a large right pleural effusion and a moderate to large left pleural effusion. Again demonstrated are compressive atelectatic changes of significant portions of both lower lobes. Pacemaker wires are seen within the heart. Previously demonstrated high attenuation focus within the right pectineus muscle is not evident. However, there is a low-attenuation area which measures 2 cm diameter centrally which is not evident previously. There is diffuse edema of the subcutaneous fat. This is less severe than was demonstrated previously. There are degenerative proliferative changes of the lumbar spine. Impression: Abnormal configuration of the sigmoid colon, with marked distention of a sigmoid, inversion of the relationships of the proximal and descending colon, and evidence of immediately apposed transition point raises concern for sigmoid volvulus. However, similarity to the prior exam, presence of what appears to be contrast opacified stool within the dilated segment, and lack of evidence of twisting of the vascular pedicle raises the possibility that this is baseline for this patient or possibly dysfunctional in nature. Correlate with clinical findings Enlarged prostate with protrusion into the bladder floor. Bladder neoplasm not completely excludable as a result Thick-walled bladder, may indicate cystitis or be due to chronic bladder lumen obstruction related to the above Abnormalities right pectineus muscle, with a 2 cm central low attenuation area. Note that previous exam have a high attenuation focus suspicious for a small pseudoaneurysm. 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 Colonic diverticulosis. No evidence of diverticulitis Gastrostomy in good position Rectal tube in good position Large right and moderate to large left pleural effusions. Resultant compressive pulmonary atelectatic changes or graft edema subcutaneous fat, less severe than was demonstrated on prior 08/17/2019 exam. Jonathan Urias Oct 25, 2019 14:23
--- NOTE | 2019-10-25 15:08 | NUR ---
RESPIRATORY NOTE: PT REMAINED STABLE ON CMV. SX PRN. AIRWAY IS SECURE AND PATENT. VENT CIRCUIT IS SECURE AND OUT OF THE WAY. NO S/S OF RESPIRATORY DISTRESS NOTED.
--- NOTE | 2019-10-25 15:39 | NUR ---
CASE MANAGEMENT: REVIEW SI: ESRD on HD . LEUKOCYTOSIS . PROTEUS PNA T 97.5 HR 83 RR 14 BP 86/39 SAT 95% MECH VENT FIO2 24 WBC 27.6 H/H 8.6/27.5 NA 133 K 3.1 GLUCOSE 135 IS: ZOSYN IV Q8HR LOVENOX SUBQ Q12HR ACYCLOVIR PO Q12HR VANCOMYCIN HCl PO QID HD NEEDED GT FEEDING STEP DOWN UNIT STATUS DCP: HEALTH PLAN ASSISTING WITH SEEKING SUBACUTE PLACEMENT FOR PATIENTS REQUIRING HEMODIALYSIS.
--- NOTE | 2019-10-25 15:46 | NUR ---
*-* INSURANCE *-* UPDATED CLINICALS AND REVIEWS HAVE BEEN FAXED TO: [facility] REF# [id number] RIC:HARPER P:[phone] F:[phone]
--- NOTE | 2019-10-25 17:00 | NUR ---
NURSE NOTES: Dr. Pichardo at the bedside made aware blood pressure fluctuate 80s-100s. No new order received at this time. made aware of K level, no new order.
--- NOTE | 2019-10-25 17:22 | Nephrology Progress Note ---
Assessment/Plan Plan Septic Shock - IVF boluses. Restarted IV Abx per ID. MOF ESRD - HD held due to septic shock. Hope to dialyze tomorrow when BP more stable. Anemia of CKD -TUYET. Subjective Subjective Obtunded. Hypotensive. SBP fluctuating 70's-100. Objective Objective Last 24 Hour Vital Signs Date Time Temp Pulse Resp B/P (MAP) Pulse Ox O2 Delivery O2 Flow Rate FiO2 10/25/19 16:00 98.2 84 20 98/48 (65) 100 10/25/19 16:00 24 10/25/19 16:00 81 10/25/19 16:00 Mechanical Ventilator 10/25/19 15:08 82 13 24 10/25/19 12:00 24 10/25/19 12:00 Mechanical Ventilator 10/25/19 12:00 83 10/25/19 12:00 97.5 83 14 105/48 (67) 99 10/25/19 10:45 82 13 24 10/25/19 08:36 74 101/73 10/25/19 08:36 101/73 10/25/19 08:00 Mechanical Ventilator 10/25/19 08:00 97.7 74 16 101/73 (82) 95 10/25/19 08:00 24 10/25/19 08:00 78 10/25/19 07:30 79 86/39 (55) 10/25/19 07:15 79 13 24 10/25/19 04:00 Mechanical Ventilator 10/25/19 04:00 98.0 80 18 105/57 (73) 100 10/25/19 04:00 80 10/25/19 04:00 24 10/25/19 02:23 79 12 24 10/25/19 02:00 77 106/58 (74) 100 10/25/19 00:00 24 10/25/19 00:00 97.7 80 18 86/45 (59) 100 10/25/19 00:00 Mechanical Ventilator 10/24/19 23:35 79 10/24/19 22:39 71 13 24 10/24/19 22:00 80 91/43 (59) 100 10/24/19 21:23 74 84/46 (59) 10/24/19 21:00 78 88/62 10/24/19 20:00 24 10/24/19 20:00 Mechanical Ventilator 10/24/19 20:00 97.8 80 18 88/62 (71) 100 10/24/19 19:31 78 10/24/19 18:58 77 13 24 Intake and Output 10/24/19 10/25/19 19:00 07:00 Intake Total 560 ml 590 ml Output Total 200 ml 100 ml Balance 360 ml 490 ml Free Water 200 ml 100 ml IV Total 220 ml Tube Feeding 360 ml 270 ml Stool Total 200 ml 100 ml Laboratory Tests 10/24/19 18:21: POC Whole Blood Glucose 184H 10/25/19 01:06: POC Whole Blood Glucose 120H 10/25/19 04:35: White Blood Count 27.6*H, Red Blood Count 3.67L, Hemoglobin 8.6L, Hematocrit 27.5L, Mean Corpuscular Volume 75L, Mean Corpuscular Hemoglobin 23.3L, Mean Corpuscular Hemoglobin Concent 31.1L, Red Cell Distribution Width 16.4H, Platelet Count 566H, Mean Platelet Volume 5.9L, Neutrophils (%) (Auto) , Lymphocytes (%) (Auto) , Monocytes (%) (Auto) , Eosinophils (%) (Auto) , Basophils (%) (Auto) , Differential Total Cells Counted 100, Neutrophils % (Manual) 86H, Lymphocytes % (Manual) 7L, Monocytes % (Manual) 6, Eosinophils % (Manual) 1, Basophils % (Manual) 0, Band Neutrophils 0, Platelet Estimate Inc reasedH, Platelet Morphology Normal, Hypochromasia 2+, Anisocytosis 1+, Microcytosis 1+, Sodium Level 133L, Potassium Level 3.1L, Chloride Level 96L, Carbon Dioxide Level 24, Anion Gap 13, Blood Urea Nitrogen 84H, Creatinine 4.1H, Estimat Glomerular Filtration Rate 14.2, Glucose Level 136H, Calcium Level 7.5L, Phosphorus Level 3.0, Random Vancomycin Level 17.9 10/25/19 05:52: POC Whole Blood Glucose [Pending] 10/25/19 11:30: POC Whole Blood Glucose 135H Height (Feet): 5 Height (Inches): 10.00 Weight (Pounds): 123 Objective Clammy, diaphoretic CV RR Trach clean Lungs CTA Perma Cath RIJ. Abd SNT. BS + E No CCE Barely responsive Erica Pichardo MD Oct 25, 2019:22
--- NOTE | 2019-10-25 17:46 | NUR ---
NURSE NOTES: Called [facility] Nephrology tele : [phone], spoke with Cath and informed patient schedule for HD tomorrow routine per Dr. Pichardo.
--- NOTE | 2019-10-25 18:41 | Cardiology Report ---
APPROVED REPORT EKG Measurement Heart [id number] <Conclusion> Dual-Chamber Pacemaker Abnormal ECG
[2019-10-25] MEDS ORDERED: NS 500ML ONE (18:49)
[2019-10-25] MEDS ORDERED: Tubing IV Secondary IV ONE (18:49)
--- NOTE | 2019-10-25 19:02 | NUR ---
NURSE HAND-OFF REPORT: Important Events on Shift:HD on hold, HD re-schedule tomorrow 10/25, Low BP Patient Status: low BP, now 101/58 Diet: Nephro @ 45ml/h Pending Orders: NA Pending Results/Labs:NA Pending MD notification:NA Latest Vital Signs: Temperature 98.2 , Pulse 81 , B/P 98 /48 , Respiratory Rate 20 , O2 SAT 100 , Mechanical Ventilator, O2 Flow Rate 15.0 . Vital Sign Comment: Stable except low BP , MD aware, no new order EKG Rhythm: V-Paced Rhythm change?: N MD Notified?: N - MD Response: Latest Delacruz Fall Score: 70 Fall Risk: High Risk Safety Measures: Call light Within Reach, Bed Alarm Zone 2, Side Rails Side Rails x3, Bed position Low and Locked. Fall Precautions: Yellow Socks Yellow Gown Patient Fall Education Report given to TAMICA Worley.
--- NOTE | 2019-10-25 19:27 | NUR ---
NURSE NOTES: Received pt's report from TAMICA العلي, PT is on bed, open eyes, open mouth, obtunded. Pt is on vent, SpO2 99%, RR 18, HR 85. No s/s of respiratory distress noted. Pt is on rectal tube, brown liquid stool noted. Pt is on G-tube, Nepro is running at 45mL/Hr. Call-light within reach, bed is low and locked. Will continue to monitor with plan of care.
--- NOTE | 2019-10-25 19:41 | NUR ---
NURSE NOTES: Called Dr. Ramirez and left a voice message regarding pt's low BP 74/38. Awaiting for response.
[2019-10-25] MEDS: Dyna-Hex 2% Top Sol 2oz TOPIC SCH (20:15)
[2019-10-25] MEDS: Epoetin Alfa-EPBX(ESRD on dialysis)4000 units/ml vial SUBQ SCH (20:18)
--- NOTE | 2019-10-25 23:30 | NUR ---
NURSE NOTES: Per DrYoanas order, NS bolus is given. BP went up to 104/44. Will continue to monitor.
[2019-10-26] VITALS: BP 104/46
[2019-10-26 04:00] VITALS: BP 127/66
[2019-10-26] MEDS: Piperacillin/Tazobactam 2.25 GM in D5W 55 ML IVPB SCH ×3 (04:10→20:14)
[2019-10-26 04:35] LABS: HEMATOCRIT 26.8 % (42.0-52.0); HEMOGLOBIN 8.3 G/DL (14.2-18.0); MEAN CORPUSCULAR VOLUME 75 FL (80-99); PLATELET COUNT 574 K/UL (150-450); RED BLOOD COUNT 3.57 M/UL (4.70-6.10); RED CELL DISTRIBUTION WIDTH 16.6 % (11.6-14.8); WHITE BLOOD COUNT 20.4 K/UL (4.8-10.8)
[2019-10-26 05:02] LABS: CREATININE 4.7 MG/DL (0.55-1.30)
[2019-10-26] MEDS: NovoLOG Insulin Flexpen SUBQ SCH ×4 (05:22→23:30)
[2019-10-26] MEDS ORDERED: Heparin Sod 1000 units/ml 10ml IV PRN (06:00)
[2019-10-26] MEDS ORDERED: Heparin 1000 units/ml 1ml Vial INJ PRN (06:00)
--- NOTE | 2019-10-26 07:30 | NUR ---
NURSE HAND-OFF REPORT: Important Events on Shift:Low BP Patient Status: Stable at this moment Diet: Nepro Pending Orders: n/a Pending Results/Labs:n/a Pending MD notification:n/a Latest Vital Signs: Temperature 97.9 , Pulse 80 , B/P 127 /66 , Respiratory Rate 14 , O2 SAT 100 , Mechanical Ventilator, O2 Flow Rate 15.0 . Vital Sign Comment: Stable at this moment EKG Rhythm: SR w/BBB Rhythm change?: N MD Notified?: N - MD Response: Latest Delacruz Fall Score: 70 Fall Risk: High Risk Safety Measures: Call light Within Reach, Bed Alarm Zone 2, Side Rails Side Rails x3, Bed position Low and Locked. Fall Precautions: Yellow Socks Yellow Gown Patient Fall Education Report given to TAMICA العلي.
--- NOTE | 2019-10-26 07:40 | NUR ---
NURSE NOTES: Received report from TAMICA Worley. Patient in bed resting, no active s/s cardiac, respiratory distress noticed at this time. Patient Obtunded, open eyes spontaneously, and when suctioned. Trach to vent Portex 8 AC 12 TV 550 Fio2 24 PEEP 5. GT on hole per order, Nephro @ 45ml/h. Rectal tube draining well to gravity at this time. IV on left FA 20G, right wrist 22G, asymptomatic, patent, intact. Endorsed HD schedule today, HD nurseSylvester called and verified. Endorsed 1L NS Bolus given for low BP 74/38 now BP 126/68 HR 82 V-paced. Bed in lowest position, side rails upx3, call light within reach, bed alarm on, Will continue to monitor.
[2019-10-26 08:00] VITALS: BP 126/68
[2019-10-26] MEDS: Lactobacillus-GG tablet GT SCH ×2 (08:06→20:13)
[2019-10-26] MEDS: Vancomycin oral 125mg/2.5ml ORAL SCH ×4 (08:06→20:14)
[2019-10-26] MEDS: Acyclovir 200mg Cap ORAL SCH ×2 (08:06→20:13)
--- NOTE | 2019-10-26 08:06 | General Progress Note ---
Subjective ROS Limited/Unobtainable: Yes Allergies: Coded Allergies: No Known Allergies (Unverified , 06/10/19) Subjective remains ill on vent/ no change on HD vitals noted= transient hypotension Objective Last 24 Hour Vital Signs Date Time Temp Pulse Resp B/P (MAP) Pulse Ox O2 Delivery O2 Flow Rate FiO2 10/26/19 07:20 80 14 24 10/26/19 04:00 97.9 82 16 127/66 (86) 100 10/26/19 04:00 80 10/26/19 04:00 Mechanical Ventilator 10/26/19 04:00 24 10/26/19 02:42 78 14 24 10/26/19 00:00 Mechanical Ventilator 10/26/19 00:00 97.7 76 16 104/46 (65) 100 10/25/19 23:31 74 10/25/19 22:39 76 15 24 10/25/19 22:00 82 81/41 (54) 10/25/19 20:19 84 92/45 10/25/19 20:00 98.2 83 14 92/45 (61) 100 10/25/19 20:00 Mechanical Ventilator 10/25/19 20:00 24 10/25/19 19:49 84 10/25/19 19:41 84 14 74/38 (50) 10/25/19 18:35 84 12 24 10/25/19 16:00 98.2 84 20 98/48 (65) 100 10/25/19 16:00 24 10/25/19 16:00 81 10/25/19 16:00 Mechanical Ventilator 10/25/19 15:08 82 13 24 10/25/19 12:00 24 10/25/19 12:00 Mechanical Ventilator 10/25/19 12:00 83 10/25/19 12:00 97.5 83 14 105/48 (67) 99 10/25/19 10:45 82 13 24 10/25/19 08:36 74 101/73 10/25/19 08:36 101/73 Intake and Output 10/25/19 10/26/19 19:00 07:00 Intake Total 550 ml 1725 ml Output Total 10 ml 50 ml Balance 540 ml 1675 ml Free Water 90 ml 120 ml IV Total 55 ml 1110 ml Tube Feeding 405 ml 495 ml Stool Total 10 ml 50 ml Laboratory Tests 10/25/19 11:30: POC Whole Blood Glucose 135H 10/25/19 17:15: POC Whole Blood Glucose [Pending] 10/26/19 02:45: White Blood Count 20.4H, Red Blood Count 3.57L, Hemoglobin 8.3L, Hematocrit 26.8L, Mean Corpuscular Volume 75L, Mean Corpuscular Hemoglobin 23.2L, Mean Corpuscular Hemoglobin Concent 30.9L, Red Cell Distribution Width 16.6H, P latelet Count 574H, Mean Platelet Volume 5.7L, Neutrophils (%) (Auto) , Lymphocytes (%) (Auto) , Monocytes (%) (Auto) , Eosinophils (%) (Auto) , Basophils (%) (Auto) , Neutrophils % (Manual) [Pending], Lymphocytes % (Manual) [Pending], Platelet Estimate [Pending], Platelet Morphology [Pending], Sodium Level 130L, Potassium Level 3.0L, Chloride Level 93L, Carbon Dioxide Level 21, Anion Gap 16H, Blood Urea Nitrogen 98H, Creatinine 4.7H, Estimat Glomerular Filtration Rate 12.1, Glucose Level 154H, Calcium Level 8.0L, Phosphorus Level 3.0, Random Vancomycin Level 21.3 Height (Feet): 5 Height (Inches): 10.00 Weight (Pounds): 123 Objective GENERAL: Ill-appearing male, chronically debilitated. HEENT: Tracheostomy in midline. Questionable fullness in the submandibular region. LUNGS: Coarse breath sounds. reduced breath sounds CARDIAC: S1, S2. Regular rate and rhythm. borderline tachy ABDOMEN: Soft. G-tube. EXTREMITIES: With noted edema. NEUROLOGICAL: Poorly responsive, weak diffusely. Assessment/Plan Assessment/Plan: IMPRESSION: 1. anemia. 2. fevers improved 3. Leukocytosis. 4. hypotension 5. Acute on chronic renal failure. 6. Hyponatremia. 7. Severe protein-calorie malnutrition. 8. Significantly elevated C-reactive protein concerning for infectious etiology. 9. Tracheostomy, G-tube. 10. Ventilator dependence. 11. anasarca 12. Hematuria 13. V pacing 14. hyponatremia 15. transaminitis, HIDA negative PLAN chronic care; unable to place care noted- bolus prn on vent/ no wean monitor labs and optimize ID follow up - wbc now worse dialysis ongoing- adjust lytes prognosis poor for recovery impression, plan, and exam edited and reviewed in detail care discussed with Kain Tovar MD Oct 26, 2019 08:06
[2019-10-26] MEDS: Enoxaparin 30mg Inj SUBQ SCH (08:07)
[2019-10-26] MEDS: Minoxidil 2.5mg tab GT SCH (08:08)
[2019-10-26] MEDS: Zinc Oxide Oint 2oz TOPIC SCH ×2 (08:08→21:57)
[2019-10-26] MEDS: Metoprolol Tartrate 100mg tab GT SCH ×2 (08:09→20:14)
--- NOTE | 2019-10-26 09:56 | Infectious Diseases Prog Note ---
Assessment/Plan Assessment/Plan A: 1. Pneumonia with gram negatives COVID19 X2 : negative 2. ESRD on HD 3. Leukocytosis 4. Respiratory failure, Ventilator dependent 5. Anemia 6. Elevated transaminase 7. 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 Klebsiella catheter infection s/p removal 10. Diarrhea, C. difficile negative 11. Genital wart PLAN: 1. Continue Vancomycin, Zosyn & Acyclovir 2. will f/u cultures Subjective ROS Limited/Unobtainable: Yes Constitutional: Denies: fever Allergies: Coded Allergies: No Known Allergies (Unverified , 06/10/19) Objective Last 24 Hour Vital Signs Date Time Temp Pulse Resp B/P (MAP) Pulse Ox O2 Delivery O2 Flow Rate FiO2 10/26/19 08:09 80 127/66 10/26/19 08:08 120/56 10/26/19 08:00 24 10/26/19 08:00 97.5 82 15 126/68 (87) 100 10/26/19 08:00 78 10/26/19 08:00 78 10/26/19 08:00 Mechanical Ventilator 10/26/19 07:20 80 14 24 10/26/19 04:00 97.9 82 16 127/66 (86) 100 10/26/19 04:00 80 10/26/19 04:00 Mechanical Ventilator 10/26/19 04:00 24 10/26/19 02:42 78 14 24 10/26/19 00:00 Mechanical Ventilator 10/26/19 00:00 97.7 76 16 104/46 (65) 100 10/25/19 23:31 74 10/25/19 22:39 76 15 24 10/25/19 22:00 82 81/41 (54) 10/25/19 20:19 84 92/45 10/25/19 20:00 98.2 83 14 92/45 (61) 100 10/25/19 20:00 Mechanical Ventilator 10/25/19 20:00 24 10/25/19 19:49 84 10/25/19 19:41 84 14 74/38 (50) 10/25/19 18:35 84 12 24 10/25/19 16:00 98.2 84 20 98/48 (65) 100 10/25/19 16:00 24 10/25/19 16:00 81 10/25/19 16:00 Mechanical Ventilator 10/25/19 15:08 82 13 24 10/25/19 12:00 24 10/25/19 12:00 Mechanical Ventilator 10/25/19 12:00 83 10/25/19 12:00 97.5 83 14 105/48 (67) 99 10/25/19 10:45 82 13 24 Height (Feet): 5 Height (Inches): 10.00 Weight (Pounds): 123 General Appearance: cachetic HEENT: status post trach Respiratory/Chest: decreased breath sounds, other - on ventilator Cardiovascular: normal rate, other - Permacath Abdomen: soft, non tender, other - GT & rectal tube Extremities: other - C ontracted Skin: ulcers, other - genital lesions Neurologic/Psychiatric: aphasia Microbiology Date/Time Source Procedure Growth Status 10/24/19 18:30 Sputum Gram Stain - Final Resulted 10/24/19 18:30 Sputum Culture - Preliminary Gram Negative Bacillus 1 Resulted 10/24/19 15:30 Blood Blood Culture - Preliminary NO GROWTH AFTER 24 HOURS Resulted Laboratory Tests Test 10/25/19 11:30 10/25/19 17:15 10/26/19 02:45 POC Whole Blood Glucose 135 MG/DL (74-106) H Pending White Blood Count 20.4 K/UL (4.8-10.8) H Red Blood Count 3.57 M/UL (4.70-6.10) L Hemoglobin 8.3 G/DL (14.2-18.0) L Hematocrit 26.8 % (42.0-52.0) L Mean Corpuscular Volume 75 FL (80-99) L Mean Corpuscular Hemoglobin 23.2 PG (27.0-31.0) L Mean Corpuscular Hemoglobin Concent 30.9 G/DL (32.0-36.0) L Red Cell Distribution Width 16.6 % (11.6-14.8) H Platelet Count 574 K/UL (150-450) H Mean Platelet Volume 5.7 FL (6.5-10.1) L Neutrophils (%) (Auto) % (45.0-75.0) Lymphocytes (%) (Auto) % (20.0-45.0) Monocytes (%) (Auto) % (1.0-10.0) Eosinophils (%) (Auto) % (0.0-3.0) Basophils (%) (Auto) % (0.0-2.0) Neutrophils % (Manual) Pending Lymphocytes % (Manual) Pending Platelet Estimate Pending Platelet Morphology Pending Sodium Level 130 MMOL/L (136-145) L Potassium Level 3.0 MMOL/L (3.5-5.1) L Chloride Level 93 MMOL/L (98-107) L Carbon Dioxide Level 21 MMOL/L (21-32) Anion Gap 16 mmol/L (5-15) H Blood Urea Nitrogen 98 mg/dL (7-18) H Creatinine 4.7 MG/DL (0.55-1.30) H Estimat Glomerular Filtration Rate 12.1 mL/min (>60) Glucose Level 154 MG/DL (74-106) H Calcium Level 8.0 MG/DL (8.5-10.1) L Phosphorus Level 3.0 MG/DL (2.5-4.9) Random Vancomycin Level 21.3 ug/mL Current Medications Medications (Trade) Dose Ordered Sig/Leonel Route PRN Reason Start Time Stop Time Status Last Admin Dose Admin Acetaminophen (Tylenol) 650 mg Q6H PRN GT Temp >100.5 10/21/19 20:45 11/20/19 20:44 10/24/19 10:25 Acyclovir (Zovirax) 400 mg Q12HR ORAL 10/23/19 13:00 11/22/19 12:59 10/26/19 08:06 Chlorhexidine Gluconate (Felipa-Hex 2%) 1 applic DAILY@1999 TOPIC 09/12/19 20:00 12/11/19 19:59 10/25/19 20:15 Clonidine HCl (Catapres Tab) 0.1 mg Q4H PRN GT For High Blood Pressure 09/09/19 12:30 12/08/19 05:29 09/15/19 04:10 Dextrose (Dextrose 50%) 25 ml Q30M PRN IV Hypoglycemia 08/09/19 07:30 11/07/19 07:29 Dextrose (Dextrose 50%) 50 ml Q30M PRN IV Hypoglycemia 08/09/19 07:30 11/07/19 07:29 Enoxaparin Sodium (Lovenox) 30 mg DAILY SUBQ 10/24/19 09:00 01/22/20 08:59 10/26/19 08:07 Epoetin Andreas (Epoetin Andreas(ESRD on dialysis)) 8,000 unit WED-WED-WED SUBQ 10/25/19 21:00 01/23/20 20:59 10/25/19 20:18 Famotidine (Pepcid) 20 mg DAILY GT 08/30/19 09:00 11/28/19 08:59 10/26/19 08:08 Heparin Sodium (Porcine) (Heparin Sod 1000 units/ml 10ml) 2,000 unit ONCE PRN IV HD 10/26/19 06:00 10/26/19 23:59 Heparin Sodium (Porcine) (Heparin) 1,000 unit POSTHD PRN INJ POST HD 10/26/19 06:00 10/26/19 23:59 Insulin Aspart (NovoLOG) Q6HR SUBQ 09/25/19 18:00 11/07/19 11:29 10/26/19 05:22 Lactobacillus Acidophilus (Culturelle) 1 tab EVERY 12 HOURS GT 10/03/19 21:00 12/13/19 17:59 10/26/19 08:06 Loperamide HCl (Imodium) 2 mg Q6H PRN NG Diarrhea 10/15/19 07:45 11/14/19 07:44 Metoprolol Tartrate (Lopressor) 200 mg Q12HR GT 08/09/19 09:00 11/07/19 08:59 10/24/19 09:24 Minoxidil (Loniten) 5 mg DAILY GT 08/09/19 09:00 11/07/19 08:59 10/24/19 09:23 Piperacillin Sod/ Tazobactam Sod 2.25 gm/Dextrose 55 ml @ 110 mls/hr Q8H IVPB 10/24/19 12:00 10/31/19 11:59 10/26/19 04:10 Sodium Chloride 1,000 ml @ 500 mls/hr Q2H PRN IVLG sbp<90 during hd 10/26/19 06:00 10/26/19 23:59 Vancomycin HCl (Firvanq) 125 mg FOUR TIMES A DAY ORAL 10/25/19 13:00 11/01/19 12:59 10/26/19 08:06 Vancomycin HCl (Vanco pharmacy to dose) 1 ea DAILY PRN MISC Per rx protocol 10/24/19 11:00 11/23/19 10:59 Zinc Oxide (Zinc Oxide) 1 applic EVERY 12 HOURS TOPIC 10/03/19 09:00 11/08/19 17:59 10/26/19 08:08 Real DeL eon MD Oct 26, 2019 09:56
--- NOTE | 2019-10-26 10:26 | Surgery Progress Note ---
Surgery Progress Note Subjective Procedure Performed Right femoral temporary hemodialysis catheter removal Additional Comments wbc 20k micro reviewed no n/v Objective Last 24 Hour Vital Signs Date Time Temp Pulse Resp B/P (MAP) Pulse Ox O2 Delivery O2 Flow Rate FiO2 10/26/19 08:09 80 127/66 10/26/19 08:08 120/56 10/26/19 08:00 24 10/26/19 08:00 97.5 82 15 126/68 (87) 100 10/26/19 08:00 78 10/26/19 08:00 78 10/26/19 08:00 Mechanical Ventilator 10/26/19 07:20 80 14 24 10/26/19 04:00 97.9 82 16 127/66 (86) 100 10/26/19 04:00 80 10/26/19 04:00 Mechanical Ventilator 10/26/19 04:00 24 10/26/19 02:42 78 14 24 10/26/19 00:00 Mechanical Ventilator 10/26/19 00:00 97.7 76 16 104/46 (65) 100 10/25/19 23:31 74 10/25/19 22:39 76 15 24 10/25/19 22:00 82 81/41 (54) 10/25/19 20:19 84 92/45 10/25/19 20:00 98.2 83 14 92/45 (61) 100 10/25/19 20:00 Mechanical Ventilator 10/25/19 20:00 24 10/25/19 19:49 84 10/25/19 19:41 84 14 74/38 (50) 10/25/19 18:35 84 12 24 10/25/19 16:00 98.2 84 20 98/48 (65) 100 10/25/19 16:00 24 10/25/19 16:00 81 10/25/19 16:00 Mechanical Ventilator 10/25/19 15:08 82 13 24 10/25/19 12:00 24 10/25/19 12:00 Mechanical Ventilator 10/25/19 12:00 83 10/25/19 12:00 97.5 83 14 105/48 (67) 99 10/25/19 10:45 82 13 24 I&O Intake and Output 10/25/19 10/26/19 19:00 07:00 Intake Total 550 ml 1725 ml Output Total 10 ml 50 ml Balance 540 ml 1675 ml Free Water 90 ml 120 ml IV Total 55 ml 1110 ml Tube Feeding 405 ml 495 ml Stool Total 10 ml 50 ml Dressing: other Wound: other Cardiovascular: RSR Respiratory: decreased breath sounds Abdomen: soft, non-tender, present bowel sounds Extremities: no cyanosis Laboratory Tests Test 10/25/19 11:30 10/25/19 17:15 10/26/19 02:45 POC Whole Blood Glucose 135 MG/DL (74-106) H Pending White Blood Count 20.4 K/UL (4.8-10.8) H Red Blood Count 3.57 M/UL (4.70-6.10) L Hemoglobin 8.3 G/DL (14.2-18.0) L Hematocrit 26.8 % (42.0-52.0) L Mean Corpuscular Volume 75 FL (80-99) L Mean Corpuscular Hemoglobin 23.2 PG (27.0-31.0) L Mean Corpuscular Hemoglobin Concent 30.9 G/DL (32.0-36.0) L Red Cell Distribution Width 16.6 % (11.6-14.8) H Platelet Count 574 K/UL (150-450) H Mean Platelet Volume 5.7 FL (6.5-10.1) L Neutrophils (%) (Auto) % (45.0-75.0) Lymphocytes (%) (Auto) % (20.0-45.0) Monocytes (%) (Auto) % (1.0-10.0) Eosinophils (%) (Auto) % (0.0-3.0) Basophils (%) (Auto) % (0.0-2.0) Neutrophils % (Manual) Pending Lymphocytes % (Manual) Pending Platelet Estimate Pending Platelet Morphology Pending Sodium Level 130 MMOL/L (136-145) L Potassium Level 3.0 MMOL/L (3.5-5.1) L Chloride Level 93 MMOL/L (98-107) L Carbon Dioxide Level 21 MMOL/L (21-32) Anion Gap 16 mmol/L (5-15) H Blood Urea Nitrogen 98 mg/dL (7-18) H Creatinine 4.7 MG/DL (0.55-1.30) H Estimat Glomerular Filtration Rate 12.1 mL/min (>60) Glucose Level 154 MG/DL (74-106) H Calcium Level 8.0 MG/DL (8.5-10.1) L Phosphorus Level 3.0 MG/DL (2.5-4.9) Random Vancomycin Level 21.3 ug/mL Plan Problems: (1) Anemia (2) Hyponatremia (3) Leukocytosis Assessment & Plan: Tracheostomy, left chest pacemaker are again demonstrated. There is bilateral interstitial and airspace disease and bilateral pleural fluid again demonstrated. This appears more severe than on the prior study. Bilateral interstitial and airspace infiltrates versus edema. Bilateral pleural effusions Leukocytosis, anemia, tachycardia, abnormal labs. Wound evaluated and likely etiology of patient's sepsis. Leukocytosis etiology work-up antibiotics per infectious disease Appreciate nephrology input transfuse with dialysis We will follow with recommendations thank you allowing participation's care plan HD access temp HD discussed with medical teams line okay HD as per renal persistent leukocytosis flow cyto noted improving trending down right fem line removed wbc fluctuating h/h stable lft's elevated There is a right pleural effusion Gallbladder demonstrates tiny wall adherent nonmobile echogenic foci, some possible mural calcifications, and comet tail artifact in the anterior wall. Patient unable to report sonographic Kent's sign. Common bile duct measures 4 mm in diameter. No intrahepatic biliary ductal dilatation. Liver demonstrates normal echogenicity, no focal abnormality. There is some surface nodularity. Portal vein and hepatic veins are patent. Pancreas is incompletely visualized due to overlying bowel gas, visualized portions are unremarkable. Spleen is unremarkable. Left kidney measures 8.7 cm in length. Right kidney measures 8.9 cm length. Both kidneys demonstrate increased echogenicity. There is no hydronephrosis. No focal abnormality . Abdominal aorta is partially obscured by bowel gas, visualized portions are non-aneurysmal . A gastrostomy is noted Impression: Tiny wall adherent nonmobile gallbladder echogenic foci, may reflect wall adherent calculi, small polyps, and/or pleural calcifications. Anterior wall comet tail artifact suggests foci of adenomyomatosis. Normal caliber common bile duct Possible hepatic surface nodularity, could indicate cirrhotic change Echogenic kidneys, consistent with medical renal disease. No hydronephrosis Right pleural effusion Gastrostomy Note nonvisualization of portions of the pancreas and abdominal aorta HIDA NEGATIVE trend labs (4) Ventilator dependent (5) Right lower lobe pneumonia (6) Hypokalemia (7) Hyperkalemia (8) Anasarca (9) Decubitus skin ulcer Assessment & Plan: pt presented on admission with generalized edemae.Skin assessed under tracheostomy and no areas of concerns noted. GT Insertion is marginally erythematous with small amt slough at stoma. Unstageable Pressure Injury R elbow. Base of wound is 100% yellow slough,Borders are erythematous. Wound oozing small amt haemopurulent exudate.Darker skin tone without elevation in skin temp or erythema periwound. Pt's penis and scrotum are grossly edematous and enlarged and weeping serous exudate from numerous sites both from penis and scrotum. Two small open wounds noted at base of at base of shaft of penis ,and contreras aspect of scrotum. Both wounds oozing large amt sanguineous and serosanguineous exudate. Multiple open wounds with Biofilm at base of each wounds noted to contreras/lateral,inferior and posterior aspects of scrotum. These wounds noted to be oozing moderate amts of serosanguineous exudate. Hypertrophic scar with scattered areas of hyperpigmentation noted to Sacrum. DTPI noted to L Buttocks (L)7cm x (W)9cm. Base of wound is purple and indurated.Darker skin tone without erythema,induration or fluctuance R and L ischial tuberosities. Both heels are boggy with non-blanchable erythema. Tx.Plan: Cleanse wound R elbow with Saline. Apply TheraHoney, Apply Moisture Barrier Paste periwound. Cover with Optifoam drsg.Change Daily and prn. Wash GT site with soap and water.Pat dry. Apply Zinc Oxide Paste to GT site Daily. Leave Open to Air. Apply Zinc Oxide Paste to entire Scrotum, Place ABD pads to R and L lateral, and posterior aspects of scrotum TWICE daily. Apply Cavilon Skin Barrier to malleoli and both Heels. Cover each site with Optifoam drsgs. Change every 7 days and prn. Reposition at least every 2hours or as tolerated. Off-load heels with Pillows. APM/BECCA Mattress overlay. (10) Malnutrition Assessment & Plan: DAILY ESTIMATED NEEDS: Needs based on Renal, critical care, wound/ 61kg 22-30 kcals/kg 3882-0359 total kcals 1.25-2 g protein/kg 76-122 g total protein Fluid per MD, now on HD NUTRITION DIAGNOSIS: * Swallowing difficulty R/T respiratory failure, dysphagia as evidenced by trach/vent dep, PEG dep * Increased kcal/prot needs R/T wound healing as evidenced by admitted w/ multiple pressure injuries including full thickness wounds at junction of Shaft of penis, dorsal scrotum, R elbow, and DTPI @ L buttocks. CURRENT TF:Osmolite 1.2 @ 60ml/hr x 20 hrs + Garo BID ENTERAL NUTRITION RECOMMENDATIONS: Vital AF 1.2 @ 60ml/hr x 20 hrs to provide 1200ml, 1440kcal, 90g prot, 973ml free water * Rec 20 hr run time for GI rest. -> W/ improved GI status, rec Vital AF 1.2, an elemental and carb controlled TF -> monitor lytes and renal fxn closely, monitor need for renal TF -> TF @ goal will provide 1642mg K and 2025mg Phos -> HOB over 30 degrees/ water flush per MD -------- Trial of Osmolite 1.2 continue for now- Goal of 60ml/hr for 20 hrs (4 hrs bowel rest) to provide 1200ml, 1440 kcal, 67g pro, 984ml free H2O, -> Rec to add prosource 1 pack daily (11g pro) to better meet est pro needs. -> Monitor BG, K closely. Pt would require increased insulin coverage as TF at goal would provide 56g more carbs per day. ADDITIONAL RECOMMENDATIONS: * Per SNF: HT=63" NC=797 lbs (vs EMR wt of 166lbs) -> obtain re-calibrated bedscale wt, rec daily wt monitoring * Wound healing: con't Nephrovite + Garo BID/ Vit C dosing per Nephro * Monitor renal fxn and lytes closely w/ non-renal TF ->K low, phos wnl;updated mag level; rec increased insulin w/ BG labs * Daily wts w/ drop to 118-20 lbs, rec to recalibrate for accurate CBW * Consider DC Miralax if medically appropriate: +rectal tube (11) Uremia (12) CKD (chronic kidney disease) stage 5, GFR less than 15 ml/min (13) Colon distention Assessment & Plan: discussed with GI likely functional as having lots of loose bm rectal tube kub f/u s/p colonoscopy - findings reviewed with GI improved cont diet as tolerated Marked distention of the sigmoid colon. 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 No evidence of bowel wall thickening or pneumatosis 12 mm focus of contrast enhancement in the right pectineus muscle. While nonspecific in appearance, appearance raises concern for a possible pseudoaneurysm. Ill- defined thickening of the pectus medius muscle could indicate some intramuscular hemorrhage. The above findings were phoned to Dr. Urias at the time of interpretation Large bilateral pleural effusions Hazy pulmonary parenchymal opacities as well as dense consolidative opacities most likely represent pulmonary edema, but could represent pneumonia Evidence of anasarca elsewhere, with generalized edema of the subcutaneous fat Bladder wall thickening, raises concern for cystitis. Avalos catheter in place Colonic diverticulosis. No evidence of diverticulitis. Tracheostomy Pacemaker Gastrostomy Gastrostomy again demonstrated in satisfactory position. The stomach is otherwise unremarkable. The distal esophagus and duodenum are unremarkable. Ingested contrast reaches the colon. No small bowel distention or small bowel wall thickening. Interim placement of a rectal tube. There are a few colonic diverticula. No definite evidence of acute diverticulitis. The appendix is prominent in caliber, as previously No free or loculated intraperitoneal gas or fluid is evident. Again demonstrated is marked gaseous distention of the sigmoid colon which measures up to 12.6 cm in diameter, with the proximal aspect located laterally to the distal aspect, and caliber transition in the mesenteric root of both entry points. However, there is stool within the proximal portion which appears to be at least partially contrast opacified, and no definite persisting of the vascular pedicle demonstrated. The liver, gallbladder, bile ducts, pancreas, spleen, adrenals, kidneys are unremarkable. There are accessory splenules demonstrated. No retroperitoneal or mesenteric mass or adenopathy. No pelvic mass or adenopathy. The prostate is enlarged and protrudes into the inferior bladder. The bladder is thick-walled. Previously demonstrated Avalos catheter has been removed. Again demonstrated is a large right pleural effusion and a moderate to large left pleural effusion. Again demonstrated are compressive atelectatic changes of significant portions of both lower lobes. Pacemaker wires are seen within the heart. Previously demonstrated high attenuation focus within the right pectineus muscle is not evident. However, there is a low-attenuation area which measures 2 cm diam eter centrally which is not evident previously. There is diffuse edema of the subcutaneous fat. This is less severe than was demonstrated previously. There are degenerative proliferative changes of the lumbar spine. Impression: Abnormal configuration of the sigmoid colon, with marked distention of a sigmoid, inversion of the relationships of the proximal and descending colon, a nd evidence of immediately apposed transition point raises concern for sigmoid volvulus. However, similarity to the prior exam, presence of what appears to be contrast opacified stool within the dilated segment, and lack of evidence of twisting of the vascular pedicle raises the possibility that this is baseline for this patient or possibly dysfunctional in nature. Correlate with clinical findings Enlarged prostate with protrusion into the bladder floor. Bladder neoplasm not completely excludable as a result Thick-walled bladder, may indicate cystitis or be due to chronic bladder lumen obstruction related to the above Abnormalities right pectineus muscle, with a 2 cm central low attenuation area. Note that previous exam have a high attenuation focus suspicious for a small pseudoaneurysm. 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 Colonic diverticulosis. No evidence of diverticulitis Gastrostomy in good position Rectal tube in good position Large right and moderate to large left pleural effusions. Resultant compressive pulmonary atelectatic changes or graft edema subcutaneous fat, less severe than was demonstrated on prior 08/17/2019 exam. Jonathan Urias Oct 26, 2019 10:26
--- NOTE | 2019-10-26 10:33 | NUR ---
NURSE NOTES: Dr. Pichardo made aware low BP last night 1L NS bolus given , K 3.0 Na 130. Per MD if BP low during the dialysis may transfer to ICU. CN made aware.
[2019-10-26 12:00] VITALS: BP 108/48
--- NOTE | 2019-10-26 14:00 | NUR ---
NURSE NOTES: Patient tolerated HD 500ml out, BP 120/50.
[2019-10-26 16:00] VITALS: BP 120/50
--- NOTE | 2019-10-26 16:15 | Nephrology Progress Note ---
Assessment/Plan Plan Septic Shock - IVF boluses. Restarted IV Abx per ID. MOF ESRD - HD held due to septic shock. Dialyzed today with IV boluses support.. Anemia of CKD -TUYET. Subjective Subjective Obtunded. Had HD with multiple boluses. Objective Objective Last 24 Hour Vital Signs Date Time Temp Pulse Resp B/P (MAP) Pulse Ox O2 Delivery O2 Flow Rate FiO2 10/26/19 15:26 94 24 24 10/26/19 10:56 79 14 24 10/26/19 08:09 80 127/66 10/26/19 08:08 120/56 10/26/19 08:00 24 10/26/19 08:00 97.5 82 15 126/68 (87) 100 10/26/19 08:00 78 10/26/19 08:00 78 10/26/19 08:00 Mechanical Ventilator 10/26/19 07:20 80 14 24 10/26/19 04:00 97.9 82 16 127/66 (86) 100 10/26/19 04:00 80 10/26/19 04:00 Mechanical Ventilator 10/26/19 04:00 24 10/26/19 02:42 78 14 24 10/26/19 00:00 Mechanical Ventilator 10/26/19 00:00 97.7 76 16 104/46 (65) 100 10/25/19 23:31 74 10/25/19 22:39 76 15 24 10/25/19 22:00 82 81/41 (54) 10/25/19 20:19 84 92/45 10/25/19 20:00 98.2 83 14 92/45 (61) 100 10/25/19 20:00 Mechanical Ventilator 10/25/19 20:00 24 10/25/19 19:49 84 10/25/19 19:41 84 14 74/38 (50) 10/25/19 18:35 84 12 24 Intake and Output 10/25/19 10/26/19 19:00 07:00 Intake Total 550 ml 1725 ml Output Total 10 ml 50 ml Balance 540 ml 1675 ml Free Water 90 ml 120 ml IV Total 55 ml 1110 ml Tube Feeding 405 ml 495 ml Stool Total 10 ml 50 ml Laboratory Tests 10/25/19 17:15: POC Whole Blood Glucose [Pending] 10/26/19 02:45: White Blood Count 20.4H, Red Blood Count 3.57L, Hemoglobin 8.3L, Hematocrit 26.8L, Mean Corpuscular Volume 75L, Mean Corpuscular Hemoglobin 23.2L, Mean Corpuscular Hemoglobin Concent 30.9L, Red Cell Distribution Width 16.6H, Platelet Count 574H, Mean Platelet Volume 5.7L, Neutrophils (%) (Auto) , Lymphocytes (%) (Auto) , Monocytes (%) (Auto) , Eosinophils (%) (Auto) , Basophils (%) (Auto) , Differential Total Cells Counted 100, Neutrophils % (Manual) 79H, Lymphocytes % (Manual) 8L, Monocytes % (Manual) 8, Eosinophils % (Manual) 4H, Basophils % (Manual) 1, Band Neutrophils 0, Platelet Estimate IncreasedH, Platelet Morphology Normal, Hypochromasia 2+, Anisocytosis 1+, Microcytosis 1+, Sodium Level 130L, Potassium Level 3.0L, Chloride Level 93L, Carbon Dioxide Level 21, Anion Gap 16H, Blood Urea Nitrogen 98H, Creatinine 4.7H , Estimat Glomerular Filtration Rate 12.1, Glucose Level 154H, Calcium Level 8.0L, Phosphorus Level 3.0, Random Vancomycin Level 21.3 10/26/19 12:02: POC Whole Blood Glucose 141H Height (Feet): 5 Height (Inches): 10.00 Weight (Pounds): 123 Objective Clammy, diaphoretic CV RR Trach clean Lungs CTA Perma Cath RIJ. Abd SNT. BS + E No CCE Barely responsive Erica Pichardo MD Oct 26, 2019 16:15
--- NOTE | 2019-10-26 16:46 | NUR ---
CASE MANAGEMENT: REVIEW 10/26/2019 SI:SEPSIS. RESP FAILURE VS: T 97.5 HR 91 RR 20 B/P 108/48 SATS 100% ON MECH VENT FIO2 24 LABS: WBC 20.4 NA 130 K 3 BUN 98 CR 4.7 GLU 154 IS:LOTINEN GT QD LOPRESSOR GT Q12H ZOVIRAX GT Q12H INSULIN ASPART SUBQ Q6H ZOSYN IV Q8H VANCO GT QID SDU
--- NOTE | 2019-10-26 16:53 | NUR ---
[facility] REF# [id number] RUSSELLM:HARPER P:[phone] F:[phone]
--- NOTE | 2019-10-26 16:54 | NUR ---
CASE MANAGEMENT: NOTE F/U CALL PLACED TO HARPER AT [facility]. RAVEN RAMOS IS BEING ATTEMPTED FOR POSSIBLE PLACEMENT. DECISION ON MARISABEL TERMS SHOULD BE AVAILABLE IN AM. CM WILL F/U
--- NOTE | 2019-10-26 19:20 | NUR ---
NURSE NOTES: Received report from TAMICA العلي. Patient asleep, afebrile and no respiratory distress. P responsive to name and tactile stimulation. V paced on 5 lead monitoring engineer. On [facility] vent P8, ac 12, TV 550, FiO2 24%, peep 5. Noted also right upper chest dialysis catheter intact and asymptomatic. Dressing intact and clean. With left FA 20g and left wrist 22g IV lines intact, patent and asymptomatic. On Nephro 45cc/hr x 20 hrs via GT intact and infusing well. Hemodialysis done today and 500ml out. Needs were attended. HOB elevated. Bed rails are up and wheels are locked. Call light within reach. Continue plan of care.
--- NOTE | 2019-10-26 19:24 | NUR ---
NURSE HAND-OFF REPORT: Important Events on Shift: HD done 500 ml Patient Status: stable Diet: Nephro @ 45 Pending Orders: NA Pending Results/Labs:NA Pending MD notification:Na Latest Vital Signs: Temperature 97.5 , Pulse 97 , B/P 120 /50 , Respiratory Rate 21 , O2 SAT 100 , Mechanical Ventilator, O2 Flow Rate 15.0 . Vital Sign Comment: Stable EKG Rhythm: V-Paced Rhythm change?: N MD Notified?: N - MD Response: Latest Delacruz Fall Score: 70 Fall Risk: High Risk Safety Measures: Call light Within Reach, Bed Alarm Zone 2, Side Rails Side Rails x3, Bed position Low and Locked. Fall Precautions: Yellow Socks Yellow Gown Patient Fall Education Report given to TAMICA SIM.
--- NOTE | 2019-10-26 19:32 | General Progress Note ---
Subjective Allergies: Coded Allergies: No Known Allergies (Unverified , 06/10/19) Subjective above noted NAD on TF transient hypotension noted Objective Last 24 Hour Vital Signs Date Time Temp Pulse Resp B/P (MAP) Pulse Ox O2 Delivery O2 Flow Rate FiO2 10/26/19 18:44 97 21 24 10/26/19 16:00 24 10/26/19 16:00 97 10/26/19 16:00 97.5 95 20 120/50 (73) 100 10/26/19 16:00 Mechanical Ventilator 10/26/19 15:26 94 24 24 10/26/19 12:00 Mechanical Ventilator 10/26/19 12:00 97.5 91 20 108/48 (68) 100 10/26/19 12:00 24 10/26/19 12:00 89 10/26/19 10:56 79 14 24 10/26/19 08:09 80 127/66 10/26/19 08:08 120/56 10/26/19 08:00 24 10/26/19 08:00 97.5 82 15 126/68 (87) 100 10/26/19 08:00 78 10/26/19 08:00 78 10/26/19 08:00 Mechanical Ventilator 10/26/19 07:20 80 14 24 10/26/19 04:00 97.9 82 16 127/66 (86) 100 10/26/19 04:00 80 10/26/19 04:00 Mechanical Ventilator 10/26/19 04:00 24 10/26/19 02:42 78 14 24 10/26/19 00:00 Mechanical Ventilator 10/26/19 00:00 97.7 76 16 104/46 (65) 100 10/25/19 23:31 74 10/25/19 22:39 76 15 24 10/25/19 22:00 82 81/41 (54) 10/25/19 20:19 84 92/45 10/25/19 20:00 98.2 83 14 92/45 (61) 100 10/25/19 20:00 Mechanical Ventilator 10/25/19 20:00 24 10/25/19 19:49 84 10/25/19 19:41 84 14 74/38 (50) Intake and Output 10/25/19 10/26/19 19:00 07:00 Intake Total 550 ml 1725 ml Output Total 10 ml 50 ml Balance 540 ml 1675 ml Free Water 90 ml 120 ml IV Total 55 ml 1110 ml Tube Feeding 405 ml 495 ml Stool Total 10 ml 50 ml Laboratory Tests 10/26/19 02:45: White Blood Count 20.4H, Red Blood Count 3.57L, Hemoglobin 8.3L, Hematocrit 26.8L, Mean Corpuscular Volume 75L, Mean Corpuscular Hemoglobin 23.2L, Mean Corpuscular Hemoglobin Concent 30.9L, Red Cell Distribution Width 16.6H, Platelet Count 574H, Mean Platelet Volume 5.7L, Neutrophils (%) (Auto) , Lymphocytes (%) (Auto) , Monocytes (%) (Auto) , Eosinophils (%) (Auto) , Basophils (%) (Auto) , Differential Total Cells Counted 100, Neutrophils % (Manual) 79H, Lymphocytes % (Manual) 8L, Monocytes % (Manual) 8, Eosinophils % (Manual) 4H, Basophils % (Manual) 1, Band Neutrophils 0, Platelet Estimate IncreasedH, Platelet Morphology Normal, Hypochromasia 2+, Anisocytosis 1+, Microcytosis 1+, Sodium Level 130L, Potassium Level 3.0L, Chloride Level 93L, Carbon Dioxide Level 21, Anion Gap 16H, Blood Urea Nitrogen 98H, Creatinine 4.7H , Estimat Glomerular Filtration Rate 12.1, Glucose Level 154H, Calcium Level 8.0L, Phosphorus Level 3.0, Random Vancomycin Level 21.3 10/26/19 12:02: POC Whole Blood Glucose 141H 10/26/19 17:20: POC Whole Blood Glucose 219H Height (Feet): 5 Height (Inches): 10.00 Weight (Pounds): 123 Objective Debilitated AA man NCAT (+) trach coarse BS RR abd less distended, anasarca, (+) GT, (+) rectal tube ext contracted Assessment/Plan Assessment/Plan: Assessment - abdominal distention, due to colonic dysmotility, - colonoscopy negative to hepatic flexure - diarrhea - presumed TF related - abnormal LFT - ? etiology --> HIDA negative and CT negative - Anemia - leukocytosis - stool OB (+) - EGD --> gastritis - Renal failure - Anasarca - resp failure, trach - b/l pleural effusions - dysphagia, GT - encephalopathy, contracted - poor px Recommendations - continue TF - check hepatitis markers - rectal tube - roll side to side as feasible (hard due to severe contractions) - Elevate HOB - f/u labs - PPI - abx - supportive care Ronny Mustafa MD Oct 26, 2019 19:32
[2019-10-26 20:00] VITALS: BP 118/56
[2019-10-26] MEDS: Dyna-Hex 2% Top Sol 2oz TOPIC SCH (20:13)
[2019-10-27] VITALS: BP 112/54
--- NOTE | 2019-10-27 02:30 | NUR ---
NURSE NOTES: Pt was given bed bath. gown and linen were changed. Wound care done PRN. Continue to monitor the patient.
[2019-10-27 04:00] VITALS: BP 131/54
[2019-10-27] MEDS: Piperacillin/Tazobactam 2.25 GM in D5W 55 ML IVPB SCH (04:58)
[2019-10-27] MEDS: NovoLOG Insulin Flexpen SUBQ SCH ×3 (05:03→18:29)
[2019-10-27] MEDS ORDERED: Vancomycin 500mg/D5W 110ml IVPB ONE ×2 (06:00)
--- NOTE | 2019-10-27 07:25 | NUR ---
NURSE HAND-OFF REPORT: Important Events on Shift: None Patient Status: Stable Diet: Nephrio at 45cc/hr Pending Orders: n Pending Results/Labs:n Pending MD notification:n Latest Vital Signs: Temperature 98.6 , Pulse 90 , B/P 131 /54 , Respiratory Rate 20 , O2 SAT 100 , Mechanical Ventilator, O2 Flow Rate 15.0 . Vital Sign Comment: n EKG Rhythm: SR w/ v pacing Rhythm change?: N MD Notified?: N - MD Response: Latest Delacruz Fall Score: 70 Fall Risk: High Risk Safety Measures: Call light Within Reach, Bed Alarm Zone 2, Side Rails Side Rails x3, Bed position Low and Locked. Fall Precautions: Yellow Socks Yellow Gown Patient Fall Education Report given to TAMIAC Ennis. Endorsed to monitor BP
--- NOTE | 2019-10-27 07:30 | NUR ---
NURSE NOTES: Report received from RONEY Wang RN.Pt awake,obtunded,noted no resp distress,with trach tube to vent ,ordered vent settings tolerated ,no signs of pain or discomfort,V-Paced on the monitor,GTF Nepro at 45 ml/hr ,no residual noted,Rectal tube in placed draining liquid brown stools,skin warm and dry with IV sites to LFA and LW both intact,SR up x2 HOB elevated ,bed lock in lowest position,will continue with plans of care.
[2019-10-27 08:00] VITALS: BP 150/71
--- NOTE | 2019-10-27 08:12 | General Progress Note ---
Subjective ROS Limited/Unobtainable: Yes Allergies: Coded Allergies: No Known Allergies (Unverified , 06/10/19) Subjective remains ill on vent/ no change on HD vitals noted= transient hypotension Objective Last 24 Hour Vital Signs Date Time Temp Pulse Resp B/P (MAP) Pulse Ox O2 Delivery O2 Flow Rate FiO2 10/27/19 07:00 103 22 24 10/27/19 04:00 Mechanical Ventilator 10/27/19 04:00 90 10/27/19 04:00 98.6 91 20 131/54 (79) 100 10/27/19 04:00 24 10/27/19 02:59 2 20 24 10/27/19 00:00 99.1 94 20 112/54 (73) 100 10/27/19 00:00 Mechanical Ventilator 10/26/19 23:42 92 10/26/19 22:59 94 20 24 10/26/19 20:14 97 118/56 10/26/19 20:00 24 10/26/19 20:00 Mechanical Ventilator 10/26/19 20:00 98.6 97 20 118/56 (76) 100 10/26/19 19:23 98 10/26/19 18:44 97 21 24 10/26/19 16:00 24 10/26/19 16:00 97 10/26/19 16:00 97.5 95 20 120/50 (73) 100 10/26/19 16:00 Mechanical Ventilator 10/26/19 15:26 94 24 24 10/26/19 12:00 Mechanical Ventilator 10/26/19 12:00 97.5 91 20 108/48 (68) 100 10/26/19 12:00 24 10/26/19 12:00 89 10/26/19 10:56 79 14 24 Intake and Output 10/26/19 10/27/19 19:00 07:00 Intake Total 715 ml 635 ml Output Total 1100 ml 0 ml Balance -385 ml 635 ml Free Water 300 ml 30 ml IV Total 55 ml 110 ml Tube Feeding 360 ml 495 ml Stool Total 100 ml 0 ml Hemodialysis UF 1000 ml Laboratory Tests 10/26/19 12:02: POC Whole Blood Glucose 141H 10/26/19 17:20: POC Whole Blood Glucose 219H 10/26/19 23:28: POC Whole Blood Glucose 233H 10/27/19 02:50: Random Vancomycin Level 16.1 10/27/19 04:56: POC Whole Blood Glucose 207H Height (Feet): 5 Height (Inches): 10.00 Weight (Pounds): 123 Objective GENERAL: Ill-appearing male, chronically debilitated. HEENT: Tracheostomy in midline. Questionable fullness in the submandibular region. LUNGS: Coarse breath sounds. reduced breath sounds CARDIAC: S1, S2. Regular rate and rhythm. borderline tachy ABDOMEN: Soft. G-tube. EXTREMITIES: With noted edema. NEUROLOGICAL: Poorly responsive, weak diffusely. Assessment/Plan Assessment/Plan: IMPRESSION: 1. anemia. 2. fevers improved 3. Leukocytosis. 4. hypotension 5. Acute on chronic renal failure. 6. Hyponatremia. 7. Severe protein-calorie malnutrition. 8. Significantly elevated C-reactive protein concerning for infectious etiology. 9. Tracheostomy, G-tube. 10. Ventilator dependence. 11. anasarca 12. Hematuria 13. V pacing 14. hyponatremia 15. transaminitis, HIDA negative PLAN chronic care; unable to place care noted- bolus prn on vent/ no wean monitor labs and optimize ID follow up - wbc now worse dialysis ongoing- adjust lytes prognosis poor for recovery impression, plan, and exam edited and reviewed in detail care discussed with Kain Tovar MD Oct 27, 2019 08:12
[2019-10-27] MEDS: Vancomycin oral 125mg/2.5ml ORAL SCH (08:37)
[2019-10-27] MEDS: Metoprolol Tartrate 100mg tab GT SCH ×2 (08:37→21:00)
[2019-10-27] MEDS: Minoxidil 2.5mg tab GT SCH (08:37)
[2019-10-27] MEDS: Acyclovir 200mg Cap ORAL SCH ×2 (08:38→21:05)
[2019-10-27] MEDS: Lactobacillus-GG tablet GT SCH ×2 (08:38→21:05)
[2019-10-27] MEDS: Enoxaparin 30mg Inj SUBQ SCH (08:39)
[2019-10-27] MEDS: Zinc Oxide Oint 2oz TOPIC SCH ×2 (08:42→21:34)
--- NOTE | 2019-10-27 10:00 | NUR ---
NURSE NOTES: Pt's family member the daughter at bedside,updated re pt's status.
--- NOTE | 2019-10-27 10:48 | NUR ---
CASE MANAGEMENT: REVIEW 10/27/2019 SI:SEPSIS. RESP FAILURE VS: T 98.3 HR 81 RR 21 B/P 150/71 SATS 100% ON MECH VENT FIO2 24 LABS: GLU 207 IS:LOTINEN GT QD LOPRESSOR GT Q12H ZOVIRAX GT Q12H INSULIN ASPART SUBQ Q6H ZOSYN IV Q8H VANCO GT QID SDU
--- NOTE | 2019-10-27 10:50 | NUR ---
INSURANCE [facility] REF# [id number] RUSSELLM:HARPER P:[phone] F:[phone]
--- NOTE | 2019-10-27 11:15 | Infectious Diseases Prog Note ---
"Assessment/Plan Assessment/Plan antibiotics : acyclovir 9.14.20 - vancomycin iv, zosyn 9.15.20- po vancomycin A 1. morganella | gram negative pneumonia 2. respiratory failure 3. leucocytosis improving 4. COVID 19 test negative x 2 5. renal failure on HD 6. groin warts 7. fever improving P 1. continue acyclovir 6 more days 2. d/c iv vancomycin, zosyn, po vancomycin 3. start cefepime 4. will follow up cultures Subjective ROS Limited/Unobtainable: Yes Allergies: Coded Allergies: No Known Allergies (Unverified , 06/10/19) Objective Last 24 Hour Vital Signs Date Time Temp Pulse Resp B/P (MAP) Pulse Ox O2 Delivery O2 Flow Rate FiO2 10/27/19 08:37 81 150/71 10/27/19 08:37 150/71 10/27/19 08:00 Mechanical Ventilator 10/27/19 08:00 24 10/27/19 08:00 98.3 81 21 150/71 (97) 100 10/27/19 07:56 104 10/27/19 07:00 103 22 24 10/27/19 04:00 Mechanical Ventilator 10/27/19 04:00 90 10/27/19 04:00 98.6 91 20 131/54 (79) 100 10/27/19 04:00 24 10/27/19 02:59 2 20 24 10/27/19 00:00 99.1 94 20 112/54 (73) 100 10/27/19 00:00 Mechanical Ventilator 10/26/19 23:42 92 10/26/19 22:59 94 20 24 10/26/19 20:14 97 118/56 10/26/19 20:00 24 10/26/19 20:00 Mechanical Ventilator 10/26/19 20:00 98.6 97 20 118/56 (76) 100 10/26/19 19:23 98 10/26/19 18:44 97 21 24 10/26/19 16:00 24 10/26/19 16:00 97 10/26/19 16:00 97.5 95 20 120/50 (73) 100 10/26/19 16:00 Mechanical Ventilator 10/26/19 15:26 94 24 24 10/26/19 12:00 Mechanical Ventilator 9/17/20 12:00 97.5 91 20 108/48 (68) 100 10/26/19 12:00 24 10/26/19 12:00 89 Height (Feet): 5 Height (Inches): 10.00 Weight (Pounds): 123 HEENT: status post trach Respiratory/Chest: lungs clear Cardiovascular: normal rate, regular rhythm, no gallop/murmur Abdomen: soft, non tender, other - GT Extremities: no edema, other - right subclavian Microbiology Date/Time Source Procedure Growth Status 10/25/19 15:30 Stool Clostridium difficile Toxin Assay - Final Complete 10/24/19 18:30 Sputum Gram Stain - Final Resulted 10/24/19 18:30 Sputum Culture - Preliminary Morganella Morg Spp Morganii Gram Negative Bacillus 2 Resulted 10/24/19 15:30 Blood Blood Culture - Preliminary NO GROWTH AFTER 48 HOURS Resulted Laboratory Tests Test 10/26/19 12:02 10/26/19 17:20 10/26/19 23:28 10/27/19 02:50 POC Whole Blood Glucose 141 MG/DL (74-106) H 219 MG/DL (74-106) H 233 MG/DL (74-106) H Random Vancomycin Level 16.1 ug/mL Test 10/27/19 04:56 POC Whole Blood Glucose 207 MG/DL (74-106) H Current Medications Medications (Trade) Dose Ordered Sig/Leonel Route PRN Reason Start Time Stop Time Status Last Admin Dose Admin Acetaminophen (Tylenol) 650 mg Q6H PRN GT Temp >100.5 10/21/19 20:45 11/20/19 20:44 10/24/19 10:25 Acyclovir (Zovirax) 400 mg Q12HR ORAL 10/23/19 13:00 11/22/19 12:59 10/27/19 08:38 Chlorhexidine Gluconate (Felipa-Hex 2%) 1 applic DAILY@1999 TOPIC 09/12/19 20:00 12/11/19 19:59 10/26/19 20:13 Clonidine HCl (Catapres Tab) 0.1 mg Q4H PRN GT For High Blood Pressure 09/09/19 12:30 12/08/19 05:29 09/15/19 04:10 Dextrose (Dextrose 50%) 25 ml Q30M PRN IV Hypoglycemia 08/09/19 07:30 11/07/19 07:29 Dextrose (Dextrose 50%) 50 ml Q30M PRN IV Hypoglycemia 08/09/19 07:30 11/07/19 07:29 Enoxaparin Sodium (Lovenox) 30 mg DAILY SUBQ 10/24/19 09:00 01/22/20 08:59 10/27/19 08:39 Epoetin Andreas (Epoetin Andreas(ESRD on dialysis)) 8,000 unit WED-WED-WED SUBQ 10/25/19 21:00 01/23/20 20:59 10/25/19 20:18 Famotidine (Pepcid) 20 mg DAILY GT 08/30/19 09:00 11/28/19 08:59 10/27/19 08:38 Insulin Aspart (NovoLOG) Q6HR SUBQ 09/25/19 18:00 11/07/19 11:29 10/27/19 05:03 Lactobacillus Acidophilus (Culturelle) 1 tab EVERY 12 HOURS GT 10/03/19 21:00 12/13/19 17:59 10/27/19 08:38 Loperamide HCl (Imodium) 2 mg Q6H PRN NG Diarrhea 10/15/19 07:45 11/14/19 07:44 Metoprolol Tartrate (Lopressor) 200 mg Q12HR GT 08/09/19 09:00 11/07/19 08:59 10/27/19 08:37 Minoxidil (Loniten) 5 mg DAILY GT 08/09/19 09:00 11/07/19 08:59 10/27/19 08:37 Piperacillin Sod/ Tazobactam Sod 2.25 gm/Dextrose 55 ml @ 110 mls/hr Q8H IVPB 10/24/19 12:00 10/31/19 11:59 10/27/19 04:58 Vancomycin HCl (Firvanq) 125 mg FOUR TIMES A DAY ORAL 10/25/19 13:00 11/01/19 12:59 10/27/19 08:37 Vancomycin HCl (Vanco pharmacy to dose) 1 ea DAILY PRN MISC Per rx protocol 10/24/19 11:00 11/23/19 10:59 Zinc Oxide (Zinc Oxide) 1 applic EVERY 12 HOURS TOPIC 10/03/19 09:00 11/08/19 17:59 10/27/19 08:42 Farnaz Lyle MD Oct 27, 2019 11:15"
--- NOTE | 2019-10-27 11:16 | Nephrology Progress Note ---
Assessment/Plan Plan Septic Shock -Restarted IV Abx per ID. MOF ESRD - HD TTS + IVF boluses. Anemia of CKD -TUYET. Subjective Subjective Obtunded. Objective Objective Last 24 Hour Vital Signs Date Time Temp Pulse Resp B/P (MAP) Pulse Ox O2 Delivery O2 Flow Rate FiO2 10/27/19 08:37 81 150/71 10/27/19 08:37 150/71 10/27/19 08:00 Mechanical Ventilator 10/27/19 08:00 24 10/27/19 08:00 98.3 81 21 150/71 (97) 100 10/27/19 07:56 104 10/27/19 07:00 103 22 24 10/27/19 04:00 Mechanical Ventilator 10/27/19 04:00 90 10/27/19 04:00 98.6 91 20 131/54 (79) 100 10/27/19 04:00 24 10/27/19 02:59 2 20 24 10/27/19 00:00 99.1 94 20 112/54 (73) 100 10/27/19 00:00 Mechanical Ventilator 10/26/19 23:42 92 10/26/19 22:59 94 20 24 10/26/19 20:14 97 118/56 10/26/19 20:00 24 10/26/19 20:00 Mechanical Ventilator 10/26/19 20:00 98.6 97 20 118/56 (76) 100 10/26/19 19:23 98 10/26/19 18:44 97 21 24 10/26/19 16:00 24 10/26/19 16:00 97 10/26/19 16:00 97.5 95 20 120/50 (73) 100 10/26/19 16:00 Mechanical Ventilator 10/26/19 15:26 94 24 24 10/26/19 12:00 Mechanical Ventilator 10/26/19 12:00 97.5 91 20 108/48 (68) 100 10/26/19 12:00 24 10/26/19 12:00 89 Intake and Output 10/26/19 10/27/19 19:00 07:00 Intake Total 715 ml 635 ml Output Total 1100 ml 0 ml Balance -385 ml 635 ml Free Water 300 ml 30 ml IV Total 55 ml 110 ml Tube Feeding 360 ml 495 ml Stool Total 100 ml 0 ml Hemodialysis UF 1000 ml Laboratory Tests 10/26/19 12:02: POC Whole Blood Glucose 141H 10/26/19 17:20: POC Whole Blood Glucose 219H 10/26/19 23:28: POC Whole Blood Glucose 233H 10/27/19 02:50: Random Vancomycin Level 16.1 10/27/19 04:56: POC Whole Blood Glucose 207H Height (Feet): 5 Height (Inches): 10.00 Weight (Pounds): 123 Objective Clammy, diaphoretic CV RR Trach clean Lungs CTA Perma Cath RIJ. Abd SNT. BS + E No CCE Barely responsive Erica Pichardo MD Oct 27, 2019 11:16
[2019-10-27 11:45] VITALS: BP 111/63
--- NOTE | 2019-10-27 11:46 | Surgery Progress Note ---
Surgery Progress Note Subjective Procedure Performed Right femoral temporary hemodialysis catheter removal Additional Comments restarted on abx per ID wbc elevated down from yesterday no n/v bp noted Objective Last 24 Hour Vital Signs Date Time Temp Pulse Resp B/P (MAP) Pulse Ox O2 Delivery O2 Flow Rate FiO2 10/27/19 08:37 81 150/71 10/27/19 08:37 150/71 10/27/19 08:00 Mechanical Ventilator 10/27/19 08:00 24 10/27/19 08:00 98.3 81 21 150/71 (97) 100 10/27/19 07:56 104 10/27/19 07:00 103 22 24 10/27/19 04:00 Mechanical Ventilator 10/27/19 04:00 90 10/27/19 04:00 98.6 91 20 131/54 (79) 100 10/27/19 04:00 24 10/27/19 02:59 2 20 24 10/27/19 00:00 99.1 94 20 112/54 (73) 100 10/27/19 00:00 Mechanical Ventilator 10/26/19 23:42 92 10/26/19 22:59 94 20 24 10/26/19 20:14 97 118/56 10/26/19 20:00 24 10/26/19 20:00 Mechanical Ventilator 10/26/19 20:00 98.6 97 20 118/56 (76) 100 10/26/19 19:23 98 10/26/19 18:44 97 21 24 10/26/19 16:00 24 10/26/19 16:00 97 10/26/19 16:00 97.5 95 20 120/50 (73) 100 10/26/19 16:00 Mechanical Ventilator 10/26/19 15:26 94 24 24 10/26/19 12:00 Mechanical Ventilator 10/26/19 12:00 97.5 91 20 108/48 (68) 100 10/26/19 12:00 24 10/26/19 12:00 89 I&O Intake and Output 10/26/19 10/27/19 19:00 07:00 Intake Total 715 ml 635 ml Output Total 1100 ml 0 ml Balance -385 ml 635 ml Free Water 300 ml 30 ml IV Total 55 ml 110 ml Tube Feeding 360 ml 495 ml Stool Total 100 ml 0 ml Hemodialysis UF 1000 ml Dressing: saturated Cardiovascular: RSR Respiratory: decreased breath sounds Abdomen: soft, non-tender, present bowel sounds Extremities: no tenderness, no cyanosis Laboratory Tests Test 10/26/19 12:02 10/26/19 17:20 10/26/19 23:28 10/27/19 02:50 POC Whole Blood Glucose 141 MG/DL (74-106) H 219 MG/DL (74-106) H 233 MG/DL (74-106) H Random Vancomycin Level 16.1 ug/mL Test 10/27/19 04:56 POC Whole Blood Glucose 207 MG/DL (74-106) H Plan Problems: (1) Anemia (2) Hyponatremia (3) Leukocytosis Assessment & Plan: Tracheostomy, left chest pacemaker are again demonstrated. There is bilateral interstitial and airspace disease and bilateral pleural fluid again demonstrated. This appears more severe than on the prior study. Bilateral interstitial and airspace infiltrates versus edema. Bilateral pleural effusions Leukocytosis, anemia, tachycardia, abnormal labs. Wound evaluated and likely etiology of patient's sepsis. Leukocytosis etiology work-up antibiotics per infectious disease Appreciate nephrology input transfuse with dialysis We will follow with recommendations thank you allowing participation's care plan HD access temp HD discussed with medical teams line okay HD as per renal persistent leukocytosis flow cyto noted improving trending down right fem line removed wbc fluctuating h/h stable lft's elevated There is a right pleural effusion Gallbladder demonstrates tiny wall adherent nonmobile echogenic foci, some possible mural calcifications, and comet tail artifact in the anterior wall. Patient unable to report sonographic Kent's sign. Common bile duct measures 4 mm in diameter. No intrahepatic biliary ductal dilatation. Liver demonstrates normal echogenicity, no focal abnormality. There is some surface nodularity. Portal vein and hepatic veins are patent. Pancreas is incompletely visualized due to overlying bowel gas, visualized portions are unremarkable. Spleen is unremarkable. Left kidney measures 8.7 cm in length. Right kidney measures 8.9 cm length. Both kidneys demonstrate increased echogenicity. There is no hydronephrosis. No focal abnormality . Abdominal aorta is partially obscured by bowel gas, visualized portions are non-aneurysmal . A gastrostomy is noted Impression: Tiny wall adherent nonmobile gallbladder echogenic foci, may reflect wall adherent calculi, small polyps, and/or pleural calcifications. Anterior wall comet tail artifact suggests foci of adenomyomatosis. Normal caliber common bile duct Possible hepatic surface nodularity, could indicate cirrhotic change Echogenic kidneys, consistent with medical renal disease. No hydronephrosis Right pleural effusion Gastrostomy Note nonvisualization of portions of the pancreas and abdominal aorta HIDA NEGATIVE trend labs (4) Ventilator dependent (5) Right lower lobe pneumonia (6) Hypokalemia (7) Hyperkalemia (8) Anasarca (9) Decubitus skin ulcer Assessment & Plan: pt presented on admission with generalized edemae.Skin assessed under tracheostomy and no areas of concerns noted. GT Insertion is marginally erythematous with small amt slough at stoma. Unstageable Pressure Injury R elbow. Base of wound is 100% yellow slough,Borders are erythematous. Wound oozing small amt haemopurulent exudate.Darker skin tone without elevation in skin temp or erythema periwound. Pt's penis and scrotum are grossly edematous and enlarged and weeping serous exudate from numerous sites both from penis and scrotum. Two small open wounds noted at base of at base of shaft of penis ,and contreras aspect of scrotum. Both wounds oozing large amt sanguineous and serosanguineous exudate. Multiple open wounds with Biofilm at base of each wounds noted to contreras/lateral,inferior and posterior aspects of scrotum. These wounds noted to be oozing moderate amts of serosanguineous exudate. Hypertrophic scar with scattered areas of hyperpigmentation noted to Sacrum. DTPI noted to L Buttocks (L)7cm x (W)9cm. Base of wound is purple and indurated.Darker skin tone without erythema,induration or fluctuance R and L ischial tuberosities. Both heels are boggy with non-blanchable erythema. Tx.Plan: Cleanse wound R elbow with Saline. Apply TheraHoney, Apply Moisture Barrier Paste periwound. Cover with Optifoam drsg.Change Daily and prn. Wash GT site with soap and water.Pat dry. Apply Zinc Oxide Paste to GT site Daily. Leave Open to Air. Apply Zinc Oxide Paste to entire Scrotum, Place ABD pads to R and L lateral, and posterior aspects of scrotum TWICE daily. Apply Cavilon Skin Barrier to malleoli and both Heels. Cover each site with Optifoam drsgs. Change every 7 days and prn. Reposition at least every 2hours or as tolerated. Off-load heels with Pillows. APM/BECCA Mattress overlay. (10) Malnutrition Assessment & Plan: DAILY ESTIMATED NEEDS: Needs based on Renal, critical care, wound/ 61kg 22-30 kcals/kg 7914-1575 total kcals 1.25-2 g protein/kg 76-122 g total protein Fluid per MD, now on HD NUTRITION DIAGNOSIS: * Swallowing difficulty R/T respiratory failure, dysphagia as evidenced by trach/vent dep, PEG dep * Increased kcal/prot needs R/T wound healing as evidenced by admitted w/ multiple pressure injuries including full thickness wounds at junction of Shaft of penis, dorsal scrotum, R elbow, and DTPI @ L buttocks. CURRENT TF:Osmolite 1.2 @ 60ml/hr x 20 hrs + Garo BID ENTERAL NUTRITION RECOMMENDATIONS: Vital AF 1.2 @ 60ml/hr x 20 hrs to provide 1200ml, 1440kcal, 90g prot, 973ml free water * Rec 20 hr run time for GI rest. -> W/ improved GI status, rec Vital AF 1.2, an elemental and carb controlled TF -> monitor lytes and renal fxn closely, monitor need for renal TF -> TF @ goal will provide 1642mg K and 2025mg Phos -> HOB over 30 degrees/ water flush per MD -------- Trial of Osmolite 1.2 continue for now- Goal of 60ml/hr for 20 hrs (4 hrs bowel rest) to provide 1200ml, 1440 kcal, 67g pro, 984ml free H2O, -> Rec to add prosource 1 pack daily (11g pro) to better meet est pro needs. -> Monitor BG, K closely. Pt would require increased insulin coverage as TF at goal would provide 56g more carbs per day. ADDITIONAL RECOMMENDATIONS: * Per SNF: HT=63" ZN=085 lbs (vs EMR wt of 166lbs) -> obtain re-calibrated bedscale wt, rec daily wt monitoring * Wound healing: con't Nephrovite + Garo BID/ Vit C dosing per Nephro * Monitor renal fxn and lytes closely w/ non-renal TF ->K low, phos wnl;updated mag level; rec increased insulin w/ BG labs * Daily wts w/ drop to 118-20 lbs, rec to recalibrate for accurate CBW * Consider DC Miralax if medically appropriate: +rectal tube (11) Uremia (12) CKD (chronic kidney disease) stage 5, GFR less than 15 ml/min (13) Colon distention Assessment & Plan: discussed with GI likely functional as having lots of loose bm rectal tube kub f/u s/p colonoscopy - findings reviewed with GI improved cont diet as tolerated Marked distention of the sigmoid colon. 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 No evidence of bowel wall thickening or pneumatosis 12 mm focus of contrast enhancement in the right pectineus muscle. While nonspecific in appearance, appearance raises concern for a possible pseudoaneurysm. Ill-defined thickening of the pectus medius muscle could indicate some intramuscular hemorrhage. The above findings were phoned to Dr. Urias at the time of interpretation Large bilateral pleural effusions Hazy pulmonary parenchymal opacities as well as dense consolidative opacities most likely represent pulmonary edema, but could represent pneumonia Evidence of anasarca elsewhere, with generalized edema of the subcutaneous fat Bladder wall thickening, raises concern for cystitis. Avalos catheter in place Colonic diverticulosis. No evidence of diverticulitis. Tracheostomy Pacemaker Gastrostomy Gastrostomy again demonstrated in satisfactory position. The stomach is otherwise unremarkable. The distal esophagus and duodenum are unremarkable. Ingested contrast reaches the colon. No small bowel distention or small bowel wall thickening. Interim placement of a rectal tube. There are a few colonic diverticula. No definite evidence of acute diverticulitis. The appendix is prominent in caliber, as previously No free or loculated intraperitoneal gas or fluid is evident. Again demonstrated is marked gaseous distention of the sigmoid colon which measures up to 12.6 cm in diameter, with the proximal aspect located laterally to the distal aspect, and caliber transition in the mesenteric root of both entry points. However, there is stool within the proximal portion which appears to be at least partially contrast opacified, and no definite persisting of the vascular pedicle demonstrated. The liver, gallbladder, bile ducts, pancreas, spleen, adrenals, kidneys are unremarkable. There are accessory splenules demonstrated. No retroperitoneal or mesenteric mass or adenopathy. No pelvic mass or adenopathy. The prostate is enlarged and protrudes into the inferior bladder. The bladder is thick-walled. Previously demonstrated Avalos catheter has been removed. Again demonstrated is a large right pleural effusion and a moderate to large left pleural effusion. Again demonstrated are compressive atelectatic changes of significant portions of both lower lobes. Pacemaker wires are seen within the heart. Previously demonstrated high attenuation focus within the right pectineus muscle is not evident. However, there is a low-attenuation area which measures 2 cm diameter centrally which is not evident previously. There is diffuse edema of the subcutaneous fat. This is less severe than was demonstrated previously. There are degenerative proliferative changes of the lumbar spine. Impression: Abnormal configuration of the sigmoid colon, with marked distention of a sigmoid, inversion of the relationships of the proximal and descending colon, and evidence of immediately apposed transition point raises concern for sigmoid volvulus. However, similarity to the prior exam, presence of what appears to be contrast opacified stool within the dilated segment, and lack of evidence of twisting of the vascular pedicle raises the possibility that this is baseline for this patient or possibly dysfunctional in nature. Correlate with clinical findings Enlarged prostate with protrusion into the bladder floor. Bladder neoplasm not completely excludable as a result Thick-walled bladder, may indicate cystitis or be due to chronic bladder lumen obstruction related to the above Abnormalities right pectineus muscle, with a 2 cm central low attenuation area. Note that previous exam have a high attenuation focus suspicious for a small pseudoaneurysm. 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 Colonic diverticulosis. No evidence of diverticulitis Gastrostomy in good position Rectal tube in good position Large right and moderate to large left pleural effusions. Resultant compressive pulmonary atelectatic changes or graft edema subcutaneous fat, less severe than was demonstrated on prior 08/17/2019 exam. Jonathan Urias Oct 27, 2019 11:46
[2019-10-27] MEDS: Cefepime HCl 1 GM in D5W 55 ML IVPB SCH (12:32)
--- NOTE | 2019-10-27 13:00 | NUR ---
NURSE NOTES: Oral care done,Oral/Tracheal secretions suctioned PRN,pulled up,repositioned .
[2019-10-27 16:00] VITALS: BP 127/67
--- NOTE | 2019-10-27 16:00 | NUR ---
NURSE NOTES: Pt stable ,no resp distress presented during the shift.
--- NOTE | 2019-10-27 18:20 | General Progress Note ---
Subjective Allergies: Coded Allergies: No Known Allergies (Unverified , 06/10/19) Subjective above noted NAD on TF non communicative Objective Last 24 Hour Vital Signs Date Time Temp Pulse Resp B/P (MAP) Pulse Ox O2 Delivery O2 Flow Rate FiO2 10/27/19 16:00 80 10/27/19 16:00 Mechanical Ventilator 10/27/19 16:00 98.6 79 21 127/67 (87) 99 100 10/27/19 16:00 24 10/27/19 15:00 81 19 24 10/27/19 12:00 Mechanical Ventilator 10/27/19 12:00 24 10/27/19 12:00 78 10/27/19 11:45 97.1 99 21 111/63 (79) 99 99 10/27/19 11:10 78 22 24 10/27/19 08:37 81 150/71 10/27/19 08:37 150/71 10/27/19 08:00 Mechanical Ventilator 10/27/19 08:00 24 10/27/19 08:00 98.3 81 21 150/71 (97) 100 10/27/19 07:56 104 10/27/19 07:00 103 22 24 10/27/19 04:00 Mechanical Ventilator 10/27/19 04:00 90 10/27/19 04:00 98.6 91 20 131/54 (79) 100 10/27/19 04:00 24 10/27/19 02:59 2 20 24 10/27/19 00:00 99.1 94 20 112/54 (73) 100 10/27/19 00:00 Mechanical Ventilator 10/26/19 23:42 92 10/26/19 22:59 94 20 24 10/26/19 20:14 97 118/56 10/26/19 20:00 24 10/26/19 20:00 Mechanical Ventilator 10/26/19 20:00 98.6 97 20 118/56 (76) 100 10/26/19 19:23 98 10/26/19 18:44 97 21 24 Intake and Output 10/26/19 10/27/19 19:00 07:00 Intake Total 715 ml 680 ml Output Total 1100 ml 0 ml Balance -385 ml 680 ml Free Water 300 ml 30 ml IV Total 55 ml 110 ml Tube Feeding 360 ml 540 ml Stool Total 100 ml 0 ml Hemodialysis UF 1000 ml Laboratory Tests 10/26/19 23:28: POC Whole Blood Glucose 233H 10/27/19 02:50: Random Vancomycin Level 16.1 10/27/19 04:56: POC Whole Blood Glucose 207H 10/27/19 12:01: POC Whole Blood Glucose 165H Height (Feet): 5 Height (Inches): 10.00 Weight (Pounds): 123 Objective Debilitated AA man NCAT (+) trach coarse BS RR abd less distended, anasarca, (+) GT, (+) rectal tube ext contracted Assessment/Plan Assessment/Plan: Assessment - abdominal distention, due to colonic dysmotility, - colonoscopy negative to hepatic flexure - diarrhea - presumed TF related - abnormal LFT - ? etiology --> HIDA negative and CT negative - Anemia - leukocytosis - stool OB (+) - EGD --> gastritis - Renal failure - Anasarca - resp failure, trach - b/l pleural effusions - dysphagia, GT - encephalopathy, contracted - poor px Recommendations - continue TF - check hepatitis markers - negative - rectal tube - roll side to side as feasible (hard due to severe contractions) - Elevate HOB - f/u labs - PPI - abx - supportive care - I will return Mon to see pt Ronny Mustafa MD Oct 27, 2019 18:20
--- NOTE | 2019-10-27 19:20 | NUR ---
NURSE HAND-OFF REPORT: Important Events on Shift:N/A Patient Status: Stable Diet: Nepro 45 ml/hr per GT Pending Orders: Pending Results/Labs:N/A Pending MD notification N/A Latest Vital Signs: Temperature 98.6 , Pulse 83 , B/P 127 /67 , Respiratory Rate 22 , O2 SAT 99 , Mechanical Ventilator, O2 Flow Rate 15.0 . Vital Sign Comment: Stable EKG Rhythm: V-Paced Rhythm change?: N MD Notified?: N - MD Response: Latest Delacruz Fall Score: 70 Fall Risk: High Risk Safety Measures: Call light Within Reach, Bed Alarm Zone 2, Side Rails Side Rails x3, Bed position Low and Locked. Fall Precautions: Yellow Socks Yellow Gown Patient Fall Education Report given to .Micah Doss RN.
--- NOTE | 2019-10-27 19:38 | NUR ---
NURSE NOTES: Pt received from TAMICA Ennsi alert and oriented x0, opens eyes spontaneously, nonverbal. Vent dependent - AC 12, Tidal Vol 550, FiO2 34% with Peep of 5, saturating at 100%. Gtube feed tolerating - on Nepro at 45 for 20 hrs. Rectal tube draining to liquid brown stool. L fa 20g and L wrist 20g noted, saline lock. On P200 mattress per pressure ulcer protocol. Bed alarm on, bed in lowest position. Call light and belongings within reach.
[2019-10-27 20:00] VITALS: BP 126/63
[2019-10-27] MEDS: Dyna-Hex 2% Top Sol 2oz TOPIC SCH (21:05)
[2019-10-27] MEDS: Epoetin Alfa-EPBX(ESRD on dialysis)4000 units/ml vial SUBQ SCH (21:06)
--- NOTE | 2019-10-27 21:10 | NUR ---
NURSE NOTES: Upon skin assessment, RN noted DTI on L medial hallux (2cm (L) x 1cm (W)), DTI on L medial foot (1.5 cm (L) x2 cm (W)), DTI on L heel (5 cm(L) x 4 cm(W)), DTI on R heel (3 cm (L) x 2.5 cm (W)), partial thickness loss noted on sacrum. Calazime cream and optifoam applied to sacrum. Skin barrier film and optifoam applied on L medial hallux, L medial foot, and bilateral heels. Heels offloaded for protection and patient repositioned frequently every 2 hrs and as needed. Wound Care Evaluation Order placed for worsening and new wounds noted. WCP taken for review.
[2019-10-28] VITALS: BP 117/63
[2019-10-28] MEDS: NovoLOG Insulin Flexpen SUBQ SCH ×5 (00:53→23:13)
[2019-10-28 04:00] VITALS: BP 122/55
--- NOTE | 2019-10-28 06:54 | NUR ---
RD ASSESSMENT & RECOMMENDATIONS SEE CARE ACTIVITY FOR COMPLETE ASSESSMENT DAILY ESTIMATED NEEDS: Needs based on Renal, critical care, wound/ 61kg 22-30 kcals/kg 3795-1070 total kcals 1.25-2 g protein/kg 76-122 g total protein Fluid per MD, now on HD NUTRITION DIAGNOSIS: * Swallowing difficulty R/T respiratory failure, dysphagia as evidenced by trach/vent dep, PEG dep * Increased kcal/prot needs R/T wound healing as evidenced by admitted w/ multiple pressure injuries including full thickness wounds at junction of Shaft of penis, dorsal scrotum, R elbow, and DTPI @ L buttocks, and now w/ DTPI wounds @ L medial hallux, L medial foot, BL heel, and partial thickness wound @ sacrum (UPDATED) CURRENT TF:NEPRO @45ml/hr x20 hrs ENTERAL NUTRITION RECOMMENDATIONS: Nepro @45ml/hr x20 hrs + Prosource x1 qdaily to provide 900ml, 1620 kcal, 73g + 11g pro, 654 ml free H2O - Maintain Nepro @goal, as tolerated. - Add PROSOURCE qdaily (11g pro) to better meet est pro needs - Flush per MD/ HOB over 30 degrees. -> If tolerating well, would rec increase to goal of 50ml/hr x20 hrs for 1L, 1800 kcal, 81g pro, 727ml free H2O as daily wts are unclear, and continue to trend wt. ADDITIONAL RECOMMENDATIONS: * Per SNF: HT=63" XY=645 lbs (vs EMR wt of 166lbs) -> obtain re-calibrated bedscale wt, rec daily wt monitoring * Wound healing: add Nephrovite + add Garo BID/ Vit C dosing per Nephro * Monitor lytes, replete as needed (low phos and mag) * Monitor BGs, need for long acting insulin * Monitor stool output, need to change TF again-> less output .
--- NOTE | 2019-10-28 07:20 | NUR ---
NURSE HAND-OFF REPORT: Important Events on Shift: Patient Status: Stable Diet: Nepro at 45 Pending Orders: Hemodialysis planned for today Pending Results/Labs: n/a Pending MD notification:n/a Latest Vital Signs: Temperature 99.0 , Pulse 90 , B/P 122 /55 , Respiratory Rate 20 , O2 SAT 100 , Mechanical Ventilator, O2 Flow Rate 15.0 . Vital Sign Comment: WNL EKG Rhythm: V-Paced Rhythm change?: N MD Notified?: N - MD Response: Latest Delacruz Fall Score: 70 Fall Risk: High Risk Safety Measures: Call light Within Reach, Bed Alarm Zone 2, Side Rails Side Rails x3, Bed position Low and Locked. Fall Precautions: Y Yellow Socks Yellow Gown Patient Fall Education Report given to TAMICA Arevalo.
[2019-10-28 07:28] LABS: HEMATOCRIT 27.9 % (42.0-52.0); HEMOGLOBIN 8.7 G/DL (14.2-18.0); MEAN CORPUSCULAR VOLUME 75 FL (80-99); PLATELET COUNT 516 K/UL (150-450); RED BLOOD COUNT 3.72 M/UL (4.70-6.10); RED CELL DISTRIBUTION WIDTH 16.7 % (11.6-14.8); WHITE BLOOD COUNT 20.8 K/UL (4.8-10.8)
[2019-10-28 07:58] LABS: CALCIUM 8.8 MG/DL (8.5-10.1); CREATININE 4.2 MG/DL (0.55-1.30); POTASSIUM 4.8 MMOL/L (3.5-5.1)
[2019-10-28 08:00] VITALS: BP 109/64
[2019-10-28] MEDS ORDERED: Heparin Sod 1000 units/ml 10ml IV PRN (08:00)
[2019-10-28] MEDS ORDERED: Heparin 5000 units/ml inj INJ PRN (08:00)
[2019-10-28] MEDS: Metoprolol Tartrate 100mg tab GT SCH ×2 (09:00→20:03)
[2019-10-28] MEDS: Lactobacillus-GG tablet GT SCH ×2 (09:54→20:03)
[2019-10-28] MEDS: Acyclovir 200mg Cap ORAL SCH ×2 (09:54→20:02)
[2019-10-28] MEDS: Minoxidil 2.5mg tab GT SCH (09:55)
[2019-10-28] MEDS: Enoxaparin 30mg Inj SUBQ SCH (09:57)
[2019-10-28] MEDS: Zinc Oxide Oint 2oz TOPIC SCH ×2 (10:00→20:03)
[2019-10-28] MEDS: Cefepime HCl 1 GM in D5W 55 ML IVPB SCH (11:16)
[2019-10-28 12:00] VITALS: BP 101/62
--- NOTE | 2019-10-28 12:30 | Pulmonology Progress Note ---
Subjective ROS Limited/Unobtainable: No Constitutional: Denies: fever Gastrointestinal/Abdominal: Reports: other - had EGT & gastric biopsy yesterday Allergies: Coded Allergies: No Known Allergies (Unverified , 06/10/19) All Systems: reviewed and negative except above Objective Last 24 Hour Vital Signs Date Time Temp Pulse Resp B/P (MAP) Pulse Ox O2 Delivery O2 Flow Rate FiO2 10/28/19 11:20 106 22 24 10/28/19 09:55 122/62 10/28/19 08:00 Mechanical Ventilator 10/28/19 08:00 24 10/28/19 08:00 98.4 92 18 109/64 (79) 100 10/28/19 07:00 92 18 24 10/28/19 04:00 Mechanical Ventilator 10/28/19 04:00 99.0 90 20 122/55 (77) 100 10/28/19 04:00 93 10/28/19 04:00 24 10/28/19 03:15 92 17 24 10/28/19 00:00 98.4 76 22 117/63 (81) 100 10/28/19 00:00 Mechanical Ventilator 10/28/19 00:00 95 10/27/19 23:30 95 24 24 10/27/19 21:00 87 126/63 10/27/19 20:00 24 10/27/19 20:00 87 10/27/19 20:00 Mechanical Ventilator 10/27/19 20:00 97.9 87 21 126/63 (84) 100 100 10/27/19 19:12 83 22 24 10/27/19 16:00 80 10/27/19 16:00 Mechanical Ventilator 10/27/19 16:00 98.6 79 21 127/67 (87) 99 100 10/27/19 16:00 24 10/27/19 15:00 81 19 24 Intake and Output 10/27/19 10/28/19 19:00 07:00 Intake Total 935 ml 550 ml Output Total 0 ml Balance 935 ml 550 ml Free Water 200 ml 100 ml Tube Feeding 495 ml 450 ml Other 240 ml Output Urine Total 0 ml Stool Total 0 ml Microbiology Date/Time Source Procedure Growth Status 10/25/19 15:30 Stool Clostridium difficile Toxin Assay - Final Complete Laboratory Tests 10/27/19 18:26: POC Whole Blood Glucose [Pending] 10/28/19 00:49: POC Whole Blood Glucose 218H 10/28/19 05:30: POC Whole Blood Glucose 189H 10/28/19 07:05: White Blood Count 20.8H, Red Blood Count 3.72L, Hemoglobin 8.7L, Hematocrit 27.9L, Mean Corpuscular Volume 75L, Mean Corpuscular Hemoglobin 23.5L, Mean Co rpuscular Hemoglobin Concent 31.3L, Red Cell Distribution Width 16.7H, Platelet Count 516H, Mean Platelet Volume 5.1L, Neutrophils (%) (Auto) , Lymphocytes (%) (Auto) , Monocytes (%) (Auto) , Eosinophils (%) (Auto) , Basophils (%) (Auto) , Differential Total Cells Counted 100, Neutrophils % (Manual) 74, Lymphocytes % (Manual) 15L, Monocytes % (Manual) 7, Eosinophils % (Manual) 4H, Basophils % ( Manual) 0, Band Neutrophils 0, Platelet Estimate IncreasedH, Platelet Morphology Normal, Hypochromasia 2+, Anisocytosis 1+, Microcytosis 2+, Sodium Level 127L, Potassium Level 4.8, Chloride Level 96L, Carbon Dioxide Level 16L, Anion Gap 15, Blood Urea Nitrogen 91H, Creatinine 4.2H, Estimat Glomerular Filtration Rate 13.8, Glucose Level 178H, Calcium Level 8.8 Current Medications Medications (Trade) Dose Ordered Sig/Leonel Route PRN Reason Start Time Stop Time Status Last Admin Dose Admin Acetaminophen (Tylenol) 650 mg Q6H PRN GT Temp >100.5 10/21/19 20:45 11/20/19 20:44 10/24/19 10:25 Acyclovir (Zovirax) 400 mg Q12HR ORAL 10/23/19 13:00 11/22/19 12:59 10/28/19 09:54 Cefepime HCl 1 gm/ Dextrose 55 ml @ 110 mls/hr Q24H IVPB 10/27/19 12:00 11/03/19 11:59 10/28/19 11:16 Chlorhexidine Gluconate (Felipa-Hex 2%) 1 applic DAILY@2000 TOPIC 09/12/19 20:00 12/11/19 19:59 10/27/19 21:05 Clonidine HCl (Catapres Tab) 0.1 mg Q4H PRN GT For High Blood Pressure 09/09/19 12:30 12/08/19 05:29 09/15/19 04:10 Dextrose (Dextrose 50%) 25 ml Q30M PRN IV Hypoglycemia 08/09/19 07:30 11/07/19 07:29 Dextrose (Dextrose 50%) 50 ml Q30M PRN IV Hypoglycemia 08/09/19 07:30 11/07/19 07:29 Enoxaparin Sodium (Lovenox) 30 mg DAILY SUBQ 10/24/19 09:00 01/22/20 08:59 10/28/19 09:57 Epoetin Andreas (Epoetin Andreas(ESRD on dialysis)) 8,000 unit WED-WED-WED SUBQ 10/25/19 21:00 01/23/20 20:59 10/27/19 21:06 Famotidine (Pepcid) 20 mg DAILY GT 08/30/19 09:00 11/28/19 08:59 10/28/19 09:54 Heparin Sodium (Porcine) (Heparin 5000 units/ml) 5,000 units POSTHD PRN INJ HD USE 10/28/19 08:00 10/28/19 23:59 Heparin Sodium (Porcine) (Heparin Sod 1000 units/ml 10ml) 2,000 unit ONCE PRN IV HD USE 10/28/19 08:00 10/28/19 23:59 Insulin Aspart (NovoLOG) Q6HR SUBQ 09/25/19 18:00 11/07/19 11:29 10/28/19 05:53 Lactobacillus Acidophilus (Culturelle) 1 tab EVERY 12 HOURS GT 10/03/19 21:00 12/13/19 17:59 10/28/19 09:54 Loperamide HCl (Imodium) 2 mg Q6H PRN NG Diarrhea 10/15/19 07:45 11/14/19 07:44 Metoprolol Tartrate (Lopressor) 200 mg Q12HR GT 08/09/19 09:00 11/07/19 08:59 10/27/19 08:37 Minoxidil (Loniten) 5 mg DAILY GT 08/09/19 09:00 11/07/19 08:59 10/28/19 09:55 Sodium Chloride 1,000 ml @ 500 mls/hr Q2H PRN IVLG sbp<90 during hd 10/28/19 08:00 10/28/19 23:59 Zinc Oxide (Zinc Oxide) 1 applic EVERY 12 HOURS TOPIC 10/03/19 09:00 11/08/19 17:59 10/28/19 10:00 Assessment/Plan Assessment/Plan Pulmonary Progress Note Assessment/Plan: IMPRESSION: 1. anemia. 2. fevers improved 3. Leukocytosis. 4. hypotension 5. Acute on chronic renal failure. 6. Hyponatremia. 7. Severe protein-calorie malnutrition. 8. Significantly elevated C-reactive protein concerning for infectious etiology. 9. Tracheostomy, G-tube. 10. Ventilator dependence. 11. anasarca 12. Hematuria 13. V pacing 14. hyponatremia 15. transaminitis, HIDA negative PLAN chronic care; unable to place care noted- bolus prn on vent/ no wean monitor labs and optimize ID follow up - wbc now worse dialysis ongoing- adjust lytes prognosis poor for recovery impression, plan, and exam edited and reviewed in detail care discussed with RN Subjective ROS Limited/Unobtainable: Yes Allergies: Coded Allergies: No Known Allergies (Unverified , 06/10/19) Subjective stable on vent Objective Vital Signs Noted Height (Feet): 5 Height (Inches): 10.00 Weight (Pounds): 155 Objective GENERAL: Ill-appearing male, chronically debilitated. HEENT: Tracheostomy in midline. Questionable fullness in the submandibular region. LUNGS: Coarse breath sounds. reduced breath sounds CARDIAC: S1, S2. Regular rate and rhythm. ABDOMEN: Soft. G-tube. EXTREMITIES: With noted edema. NEUROLOGICAL: Poorly responsive, weak diffusely. Laboratory Tests noted CXR: Stable Kenny Mccurdy MD Oct 28, 2019 12:30
--- NOTE | 2019-10-28 13:43 | NUR ---
NURSE NOTES:WOUND CARE FOLLOW-UP NOTES:pt noted to have new pressure injuries despite attempts to prevent skin breakdown. Clusters of small partial thickness Pressure injuries noted to sacrum. An area measuring (L)3.8cm x (W)4cm. Base of wounds are moist and viable with pink epithelial bridges. Darker skin tone without induration periwound. Reabsorbed DTPI R Heel(L)2.5cm x (W)5cm. Dry brown cap with surrounding non-blanchable erythema and boggy heel. Reabsorbed DTPI L Heel(L)3.5cm x (W)5cm. Dry brown cap with surrounding boggy and non-blanching erythema of L heel. Uklcer at base of shaft of Penuis(L)1.3cm x (W02.2cm . Base of ulcer is radha and nodular with irregular borders.No exudate noted. Smaller ulcer noted posteriorly at distal base of scrotum. (L)0.6cm x (W)0.7cm. Base of wound is radha . No exudate noted. Dry pink epithelial at R elbow. Peristomal Gt site is clean, dry and intact. Pt has an APM/Deb Mattress overlay. Repositioned with pillow on side with both heels floated off mattress. Tx.Plan: Apply Zinc-Oxide Paste to GT site daily. Leave open to Air. Apply Zinc Oxide paste to Ulcer shaft of Penis and scrotum TID and prn. Apply Zinc-Oxide Paste to sacrum. Cover with Optifoam drsg. Change every 3 days and prn. Apply Betadine to R and L heels. Cover each heel with Optifoam drsgs. Change every 3 days and prn. Reposition at least every 2hours or as tolerated. Off-load heels with Pillow. APM/Deb Mattress overlay.
--- NOTE | 2019-10-28 15:06 | Surgery Progress Note ---
Surgery Progress Note Subjective Procedure Performed Right femoral temporary hemodialysis catheter removal Additional Comments afebrile HD stable labs okay no n/v Objective Last 24 Hour Vital Signs Date Time Temp Pulse Resp B/P (MAP) Pulse Ox O2 Delivery O2 Flow Rate FiO2 10/28/19 11:20 106 22 24 10/28/19 09:55 122/62 10/28/19 08:00 Mechanical Ventilator 10/28/19 08:00 24 10/28/19 08:00 98.4 92 18 109/64 (79) 100 10/28/19 07:00 92 18 24 10/28/19 04:00 Mechanical Ventilator 10/28/19 04:00 99.0 90 20 122/55 (77) 100 10/28/19 04:00 93 10/28/19 04:00 24 10/28/19 03:15 92 17 24 10/28/19 00:00 98.4 76 22 117/63 (81) 100 10/28/19 00:00 Mechanical Ventilator 10/28/19 00:00 95 10/27/19 23:30 95 24 24 10/27/19 21:00 87 126/63 10/27/19 20:00 24 10/27/19 20:00 87 10/27/19 20:00 Mechanical Ventilator 10/27/19 20:00 97.9 87 21 126/63 (84) 100 100 10/27/19 19:12 83 22 24 10/27/19 16:00 80 10/27/19 16:00 Mechanical Ventilator 10/27/19 16:00 98.6 79 21 127/67 (87) 99 100 10/27/19 16:00 24 I&O Intake and Output 10/27/19 10/28/19 19:00 07:00 Intake Total 935 ml 550 ml Output Total 0 ml Balance 935 ml 550 ml Free Water 200 ml 100 ml Tube Feeding 495 ml 450 ml Other 240 ml Output Urine Total 0 ml Stool Total 0 ml Dressing: other Wound: other Cardiovascular: RSR Respiratory: decreased breath sounds Abdomen: soft, non-tender, present bowel sounds Extremities: no cyanosis Laboratory Tests Test 10/27/19 18:26 10/28/19 00:49 10/28/19 05:30 10/28/19 07:05 POC Whole Blood Glucose Pending 218 MG/DL (74-106) H 189 MG/DL (74-106) H White Blood Count 20.8 K/UL (4.8-10.8) H Red Blood Count 3.72 M/UL (4.70-6.10) L Hemoglobin 8.7 G/DL (14.2-18.0) L Hematocrit 27.9 % (42.0-52.0) L Mean Corpuscular Volume 75 FL (80-99) L Mean Corpuscular Hemoglobin 23.5 PG (27.0-31.0) L Mean Corpuscular Hemoglobin Concent 31.3 G/DL (32.0-36.0) L Red Cell Distribution Width 16.7 % (11.6-14.8) H Platelet Count 516 K/UL (150-450) H Mean Platelet Volume 5.1 FL (6.5-10.1) L Neutrophils (%) (Auto) % (45.0-75.0) Lymphocytes (%) (Auto) % (20.0-45.0) Monocytes (%) (Auto) % (1.0-10.0) Eosinophils (%) (Auto) % (0.0-3.0) Basophils (%) (Auto) % (0.0-2.0) Differential Total Cells Counted 100 Neutrophils % (Manual) 74 % (45-75) Lymphocytes % (Manual) 15 % (20-45) L Monocytes % (Manual) 7 % (1-10) Eosinophils % (Manual) 4 % (0-3) H Basophils % (Manual) 0 % (0-2) Band Neutrophils 0 % (0-8) Platelet Estimate Increased H Platelet Morphology Normal Hypochromasia 2+ Anisocytosis 1+ Microcytosis 2+ Sodium Level 127 MMOL/L (136-145) L Potassium Level 4.8 MMOL/L (3.5-5.1) Chloride Level 96 MMOL/L (98-107) L Carbon Dioxide Level 16 MMOL/L (21-32) L Anion Gap 15 mmol/L (5-15) Blood Urea Nitrogen 91 mg/dL (7-18) H Creatinine 4.2 MG/DL (0.55-1.30) H Estimat Glomerular Filtration Rate 13.8 mL/min (>60) Glucose Level 178 MG/DL (74-106) H Calcium Level 8.8 MG/DL (8.5-10.1) Plan Problems: (1) Anemia (2) Hyponatremia (3) Leukocytosis Assessment & Plan: Tracheostomy, left chest pacemaker are again demonstrated. There is bilateral interstitial and airspace disease and bilateral pleural fluid again demonstrated. This appears more severe than on the prior study. Bilateral interstitial and airspace infiltrates versus edema. Bilateral pleural effusions Leukocytosis, anemia, tachycardia, abnormal labs. Wound evaluated and likely etiology of patient's sepsis. Leukocytosis etiology work-up antibiotics per infectious disease Appreciate nephrology input transfuse with dialysis We will follow with recommendations thank you allowing participation's care plan HD access temp HD discussed with medical teams line okay HD as per renal persistent leukocytosis flow cyto noted improving trending down right fem line removed wbc fluctuating h/h stable lft's elevated There is a right pleural effusion Gallbladder demonstrates tiny wall adherent nonmobile echogenic foci, some possible mural calcifications, and comet tail artifact in the anterior wall. Patient unable to report sonographic Kent's sign. Common bile duct measures 4 mm in diameter. No intrahepatic biliary ductal dilatation. Liver demonstrates normal echogenicity, no focal abnormality. There is some surface nodularity. Portal vein and hepatic veins are patent. Pancreas is incompletely visualized due to overlying bowel gas, visualized portions are unremarkable. Spleen is unremarkable. Left kidney measures 8.7 cm in length. Right kidney measures 8.9 cm length. Both kidneys demonstrate increased echogenicity. There is no hydronephrosis. No focal abnormality . Abdominal aorta is partially obscured by bowel gas, visualized portions are non-aneurysmal . A gastrostomy is noted Impression: Tiny wall adherent nonmobile gallbladder echogenic foci, may reflect wall adherent calculi, small polyps, and/or pleural calcifications. Anterior wall comet tail artifact suggests foci of adenomyomatosis. Normal caliber common bile duct Possible hepatic surface nodularity, could indicate cirrhotic change Echogenic kidneys, consistent with medical renal disease. No hydronephrosis Right pleural effusion Gastrostomy Note nonvisualization of portions of the pancreas and abdominal aorta HIDA NEGATIVE trend labs (4) Ventilator dependent (5) Right lower lobe pneumonia (6) Hypokalemia (7) Hyperkalemia (8) Anasarca (9) Decubitus skin ulcer Assessment & Plan: pt presented on admission with generalized edemae.Skin assessed under tracheostomy and no areas of concerns noted. GT Insertion is marginally erythematous with small amt slough at stoma. Unstageable Pressure Injury R elbow. Base of wound is 100% yellow slough,Borders are erythematous. Wound oozing small amt haemopurulent exudate.Darker skin tone without elevation in skin temp or erythema periwound. Pt's penis and scrotum are grossly edematous and enlarged and weeping serous exudate from numerous sites both from penis and scrotum. Two small open wounds noted at base of at base of shaft of penis ,and contreras aspect of scrotum. Both wounds oozing large amt sanguineous and serosanguineous exudate. Multiple open wounds with Biofilm at base of each wounds noted to contreras/lateral,inferior and posterior aspects of scrotum. These wounds noted to be oozing moderate amts of serosanguineous exudate. Hypertrophic scar with scattered areas of hyperpigmentation noted to Sacrum. DTPI noted to L Buttocks (L)7cm x (W)9cm. Base of wound is purple and indurated.Darker skin tone without erythema,induration or fluctuance R and L ischial tuberosities. Both heels are boggy with non-blanchable erythema. Tx.Plan: Cleanse wound R elbow with Saline. Apply TheraHoney, Apply Moisture Barrier Paste periwound. Cover with Optifoam drsg.Change Daily and prn. Wash GT site with soap and water.Pat dry. Apply Zinc Oxide Paste to GT site Daily. Leave Open to Air. Apply Zinc Oxide Paste to entire Scrotum, Place ABD pads to R and L lateral, and posterior aspects of scrotum TWICE daily. Apply Cavilon Skin Barrier to malleoli and both Heels. Cover each site with Optifoam drsgs. Change every 7 days and prn. Reposition at least every 2hours or as tolerated. Off-load heels with Pillows. APM/BECCA Mattress overlay. (10) Malnutrition Assessment & Plan: DAILY ESTIMATED NEEDS: Needs based on Renal, critical care, wound/ 61kg 22-30 kcals/kg 1430-9793 total kcals 1.25-2 g protein/kg 76-122 g total protein Fluid per MD, now on HD NUTRITION DIAGNOSIS: * Swallowing difficulty R/T respiratory failure, dysphagia as evidenced by trach/vent dep, PEG dep * Increased kcal/prot needs R/T wound healing as evidenced by admitted w/ multiple pressure injuries including full thickness wounds at junction of Shaft of penis, dorsal scrotum, R elbow, and DTPI @ L buttocks. CURRENT TF:Osmolite 1.2 @ 60ml/hr x 20 hrs + Garo BID ENTERAL NUTRITION RECOMMENDATIONS: Vital AF 1.2 @ 60ml/hr x 20 hrs to provide 1200ml, 1440kcal, 90g prot, 973ml free water * Rec 20 hr run time for GI rest. -> W/ improved GI status, rec Vital AF 1.2, an elemental and carb controlled TF -> monitor lytes and renal fxn closely, monitor need for renal TF -> TF @ goal will provide 1642mg K and 2025mg Phos -> HOB over 30 degrees/ water flush per -------- Trial of Osmolite 1.2 continue for now- Goal of 60ml/hr for 20 hrs (4 hrs bowel rest) to provide 1200ml, 1440 kcal, 67g pro, 984ml free H2O, -> Rec to add prosource 1 pack daily (11g pro) to better meet est pro needs. -> Monitor BG, K closely. Pt would require increased insulin coverage as TF at goal would provide 56g more carbs per day. ADDITIONAL RECOMMENDATIONS: * Per SNF: HT=63" JU=564 lbs (vs EMR wt of 166lbs) -> obtain re-calibrated bedscale wt, rec daily wt monitoring * Wound healing: con't Nephrovite + Garo BID/ Vit C dosing per Nephro * Monitor renal fxn and lytes closely w/ non-renal TF ->K low, phos wnl;updated mag level; rec increased insulin w/ BG labs * Daily wts w/ drop to 118-20 lbs, rec to recalibrate for accurate CBW * Consider DC Miralax if medically appropriate: +rectal tube (11) Uremia (12) CKD (chronic kidney disease) stage 5, GFR less than 15 ml/min (13) Colon distention Assessment & Plan: discussed with GI likely functional as having lots of loose bm rectal tube kub f/u s/p colonoscopy - findings reviewed with GI improved cont diet as tolerated Marked distention of the sigmoid colon. 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 No evidence of bowel wall thickening or pneumatosis 12 mm focus of contrast enhancement in the right pectineus muscle. While nonspecific in appearance, appearance raises concern for a possible pseudoaneurysm. Ill-defined thickening of the pectus medius muscle could indicate some intramuscular hemorrhage. The above findings were phoned to Dr. Urias at the time of interpretation Large bilateral pleural effusions Hazy pulmonary parenchymal opacities as well as dense consolidative opacities most likely represent pulmonary edema, but could represent pneumonia Evidence of anasarca elsewhere, with generalized edema of the subcutaneous fat Bladder wall thickening, raises concern for cystitis. Avalos catheter in place Colonic diverticulosis. No evidence of diverticulitis. Tracheostomy Pacemaker Gastrostomy Gastrostomy again demonstrated in satisfactory position. The stomach is otherwise unremarkable. The distal esophagus and duodenum are unremarkable. Ingested contrast reaches the colon. No small bowel distention or small bowel wall thickening. Interim placement of a rectal tube. There are a few colonic diverticula. No definite evidence of acute diverticulitis. The appendix is prominent in caliber, as previously No free or loculated intraperitoneal gas or fluid is evident. Again demonstrated is marked gaseous distention of the sigmoid colon which measures up to 12.6 cm in diameter, with the proximal aspect located laterally to the distal aspect, and caliber transition in the mesenteric root of both entry points. However, there is stool within the proximal portion which appears to be at least partially contrast opacified, and no definite persisting of the vascular pedicle demonstrated. The liver, gallbladder, bile ducts, pancreas, spleen, adrenals, kidneys are unremarkable. There are accessory splenules demonstrated. No retroperitoneal or mesenteric mass or adenopathy. No pelvic mass or adenopathy. The prostate is enlarged and protrudes into the inferior bladder. The bladder is thick-walled. Previously demonstrated Avalos catheter has been removed. Again demonstrated is a large right pleural effusion and a moderate to large left pleural effusion. Again demonstrated are compressive atelectatic changes of significant portions of both lower lobes. Pacemaker wires are seen within the heart. Previously demonstrated high attenuation focus within the right pectineus muscle is not evident. However, there is a low-attenuation area which measures 2 cm diameter centrally which is not evident previously. There is diffuse edema of the subcutaneous fat. This is less severe than was demonstrated previously. There are degenerative proliferative changes of the lumbar spine. Impression: Abnormal configuration of the sigmoid colon, with marked distention of a sigmoid, inversion of the relationships of the proximal and descending colon, and evidence of immediately apposed transition point raises concern for sigmoid volvulus. However, similarity to the prior exam, presence of what appears to be contrast opacified stool within the dilated segment, and lack of evidence of twisting of the vascular pedicle raises the possibility that this is baseline for this patient or possibly dysfunctional in nature. Correlate with clinical findings Enlarged prostate with protrusion into the bladder floor. Bladder neoplasm not completely excludable as a result Thick-walled bladder, may indicate cystitis or be due to chronic bladder lumen obstruction related to the above Abnormalities right pectineus muscle, with a 2 cm central low attenuation area. Note that previous exam have a high attenuation focus suspicious for a small pseudoaneurysm. 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 Colonic diverticulosis. No evidence of diverticulitis Gastrostomy in good position Rectal tube in good position Large right and moderate to large left pleural effusions. Resultant compressive pulmonary atelectatic changes or graft edema subcutaneous fat, less severe than was demonstrated on prior 08/17/2019 exam. Jonathan Urias Oct 28, 2019 15:06
[2019-10-28 16:00] VITALS: BP 112/68
--- NOTE | 2019-10-28 18:52 | Nephrology Progress Note ---
Assessment/Plan Assessment 1) CKD V now HD dependent 2) S/P respiratory failure s/p tracheostomy 3) Clinically euvolemic Plan: Was dialyzed today Subjective Subjective He has tracheostomy, he is nonverbal, had HD today with 0.5 L removal Objective Objective Last 24 Hour Vital Signs Date Time Temp Pulse Resp B/P (MAP) Pulse Ox O2 Delivery O2 Flow Rate FiO2 10/28/19 16:00 24 10/28/19 16:00 97.8 106 19 112/68 (83) 100 10/28/19 16:00 Mechanical Ventilator 10/28/19 15:10 77 22 24 10/28/19 12:00 98.1 95 18 101/62 (75) 100 10/28/19 12:00 106 10/28/19 12:00 24 10/28/19 12:00 Mechanical Ventilator 10/28/19 11:20 106 22 24 10/28/19 09:55 122/62 10/28/19 08:00 95 10/28/19 08:00 Mechanical Ventilator 10/28/19 08:00 24 10/28/19 08:00 98.4 92 18 109/64 (79) 100 10/28/19 07:00 92 18 24 10/28/19 04:00 Mechanical Ventilator 10/28/19 04:00 99.0 90 20 122/55 (77) 100 10/28/19 04:00 93 10/28/19 04:00 24 10/28/19 03:15 92 17 24 10/28/19 00:00 98.4 76 22 117/63 (81) 100 10/28/19 00:00 Mechanical Ventilator 10/28/19 00:00 95 10/27/19 23:30 95 24 24 10/27/19 21:00 87 126/63 10/27/19 20:00 24 10/27/19 20:00 87 10/27/19 20:00 Mechanical Ventilator 10/27/19 20:00 97.9 87 21 126/63 (84) 100 100 10/27/19 19:12 83 22 24 Intake and Output 10/27/19 10/28/19 19:00 07:00 Intake Total 935 ml 550 ml Output Total 0 ml Balance 935 ml 550 ml Free Water 200 ml 100 ml Tube Feeding 495 ml 450 ml Other 240 ml Output Urine Total 0 ml Stool Total 0 ml Laboratory Tests 10/28/19 00:49: POC Whole Blood Glucose 218H 10/28/19 05:30: POC Whole Blood Glucose 189H 10/28/19 07:05: White Blood Count 20.8H, Red Blood Count 3.72L, Hemoglobin 8.7L, Hematocrit 27.9L, Mean Corpuscular Volume 75L, Mean Corpuscular Hemoglobin 23.5L, Mean Corpuscular Hemoglobin Concent 31.3L, Red Cell Distribution Width 16.7H, Platelet Count 516H, Mean Platelet Volume 5.1L, Neutrophils (%) (Auto) , Lymphocytes (%) (Auto) , Monocytes (%) (Auto) , Eosinophils (%) (Auto) , Basophils (%) (Auto) , Differential Total Cells Counted 100, Neutrophils % (Manual) 74, Lymphocytes % (Manual) 15L, Monocytes % (Manual) 7, Eosinophils % (Manual) 4H, Basophils % (Manual) 0, Band Neutrophils 0, Platelet Estimate IncreasedH, Platelet Morphology Normal, Hypochromasia 2+, Anisocytosis 1+, Microcytosis 2+, Sodium Level 127L, Potassium Level 4.8, Chloride Level 96L, Carbon Dioxide Level 16L, Anion Gap 15, Blood Urea Nitrogen 91H, Creatinine 4.2H , Estimat Glomerular Filtration Rate 13.8, Glucose Level 178H, Calcium Level 8.8 Height (Feet): 5 Height (Inches): 10.00 Weight (Pounds): 123 General Appearance: WD/WN, no apparent distress EENT: PERRL/EOMI Cardiovascular: normal rate Respiratory/Chest: chest wall non-tender, lungs clear Abdomen: normal bowel sounds, non tender, soft 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
--- NOTE | 2019-10-28 19:02 | NUR ---
RESPIRATORY NOTE: Received pt on AC VC 12, 550VT, 24%, PEEP +5. Pt is trach-dependent w/ a cuffed, Portex 8 tube. Pt asleep/obtunded. B/S ovi. rhonchi, sxn small amounts of thick/thin, pale-yellow secretions. Vent plugged into red outlet, ambubag at bedside. Pt resting comfortably, in no apparent distress at this time. Will continue plan of care.
--- NOTE | 2019-10-28 19:15 | NUR ---
NURSE NOTES: Received report from TAMICA Arevalo. Patient asleep, afebrile and no respiratory distress. Pt responsive to name and tactile stimulation. V paced on 5 lead site monitor. On [facility] vent P8, ac 12, TV 550, FiO2 24%, peep 5. Noted also right upper chest dialysis catheter intact and asymptomatic. Dressing intact and clean. With left FA 20g and left wrist 22g IV lines intact, patent and asymptomatic. On Nephro 45cc/hr x 20 hrs via GT intact and infusing well. Hemodialysis done today and 500ml out. Low BP but asymptomatic upon endorsement on 100/43. Legs were elevated. Will inform MD. Needs were attended. HOB elevated. Bed rails are up and wheels are locked. Call light within reach. Continue plan of care.
--- NOTE | 2019-10-28 19:15 | NUR ---
HAND-OFF: Report given to RONEY DAVEY.
[2019-10-28 20:00] VITALS: BP 111/53
[2019-10-28] MEDS: Dyna-Hex 2% Top Sol 2oz TOPIC SCH (20:02)
--- NOTE | 2019-10-28 21:30 | NUR ---
NURSE NOTES: PT BP stabilize. received and carried out orders per Dr Mccurdy
--- NOTE | 2019-10-28 21:34 | Hematology/Onc Progress Note ---
Assessment/Plan Assessment/Plan Assessment/recs # Anemia due to chronic disease/kidney disease as well, gi bleed + occult + noted --> was on iron in the past, now on hold --> has been started on Epogen sq --> as per renal care --> egd done and shows gastritis --> on ppi --> egd showed gastritis, colo recently done --> hgb 9-->8. 7-->7.6-->9.2-->8.9-->9.2->9.3-->8.8->9.9-->9.2-->8.1-->8.7-->7.9-->8.6-->8.9--> 8.2->9-->9.3->8.9-->9.5-->10.6->9.2-->10->8.9--> 8.3-->8.9-->9.9-->9.3-->9-->9.3->11-->8.6->8.7 --> spep ordered->wnl # Leukocytosis - with multiple infections, VRE UTI, flow is negative --> wbc trend 33-->28-->25->23->22->23->24->17.3-->17-->14->16-->15.6-->14-->14->13->19->18->1 7->22->22->19->17-->18->20-->15-->14->16-->14-->17->18-->17->15-->16-->17->28 --> on abx, linezolid and zosyn--> zosyn-->gent-->off-->vanc/zosyn --> + blood cultures with coag neg staph likely contaminated --> as per id recs --> has ordered a flow cytometry (with pathology) --> does show increased nK cell activity --> JOURDAN 2 and bcr-abl labs ordered (these are send outs)->negative --> plt 585-->613-->649-->669->663-->529-->506-->620-->720 # Elevated ddimer on admission --> duplex lower legs neg for dvt # Respiratory failure --> per pulm, s/p trach --> COVID 19 test negative x 2 # Hyperlipidemia --> statin po # Dysphagia s/p gtube with nepro --> per gi # ESRD with r fem julito --> hd as per renal # Dvt ppx lovenox sq Appreciate consultation and matt Rn Subjective Cardiovascular: Denies: no symptoms, chest pain, edema, irregular heart rate, lightheadedness, palpitations, syncope, other Allergies: Coded Allergies: No Known Allergies (Unverified , 06/10/19) All Systems: reviewed and negative except above Subjective 08/15 meds noted, no bleeding, hgb 8.8, wbc 28, path flow pending 08/16 flow pending dw pathologist, results pending, wbc 25, hgb 9 08/17 labs reviewed, meds reviewed, meds noted, no night sweats 08/19 remains obtunded, on vent/trach, no bleeding wbc 21.7 08/20 labs have been reviewed, no bleeding, wbc still elev, path reviewed 08/21 labs are noted, no bleeding, on vent, wbc better 08/22 labs noted, no bleeding, meds reviewed, wbc 24 hgb 7.6 08/23 vent, off abx, c diff negative, h/h stable 08/24 labs reviewed, on abx, wbc 17, hgb 8.9, no hemolysis 08/26 reviewed flow and is negative for leukemia, matt rn 08/27 meds reviewed, no night sweats, matt rn, no major bleeding 08/28 meds reivewed, labs noted 08/29 wbc is stable, approx 15, hgb 8.8, no hemolysis 08/30 labs are noted, is for colo today, hgb 9.9 08/31 right fem julito in place, unchanged, hgb 9.2, gi aware 09/01 labs noted, hgb 8.8, plt >600, no bleeding 09/02 labs noted, no bleeding, with elev wbc still, no new changes 09/03 meds are noted, no bleeding, labs reviewed hgb 8.6 09/04 no major events, hd as per renal, abx, no bleeding hgb low 09/05 labs are noted, no bleeding, meds have been reviewed 09/06 no new labs no hemolysis, cbc is noted, no bleeding 09/07 meds reviewed, no bleeding, matt rn, permacath functioning well 09/09 meds reviewed, wbc still elevated, as per id recs, cbc noted 09/10 is obtunded, with gutbe in place, labs reviewed 09/11 obtunded, as per id, observe now off abx, labs noted, wbc 19 09/12 cbc is pending, remains on epogen, also off abx 09/13 labs reviewed, no bleeding, elev wbc, no night sweats 09/14 meds noted, no bleeding, wbc 19, hgb 9.5, no night sweats 09/21 obtunded, remains on vent, labs noted, no bleeding, hgb 8.9 09/22 obtunded, labs noted, no bleeding, on vent, unchanged 09/23 unchanges, wbc remains elevated 20k, on abx, on vent 09/24 labs have been reviewed, no bleeding, wbc 15, may need abx 09/25 formula gtube changed, labs noted, remains obtunded, hgb 9.3 09/26 labs have been reviewed, no bleeding, matt rn, no night sweats 09/27 meds reviewed, no bleeding, wbc 14, on abx, remains obtunded 09/28 remains obtunded, no bleeding, wbc better, hgb 8.9, no hemolysis, plt 506 09/30 on colisitn, wbc elevated, cefepime added per id, hgb stable 10/01 labs reviewed, no bleeding, matt rn, no major events noted, wbc 14, hgb 10.6 10/02 labs have been noted, hgb 9.2, wbc 17, on abx, matt wright 10/03 continue on tube feeds, no bleeding, on vent, wbc remains elevated 10/04 remains ibtunded, is on a mechanical ventilator with tube feeds noted 10/05 labs are noted, hgb 8.6, wbc remains elevated, have ordered for spep 10/07 obtunded on vent, with gtube feeds, labs reviewed, matt rn 10/08 labs are noted, on vent/trach, hgb 10.2, remains obtunded 10/09 labns noted, wbc 15, hgb 8.9, remains altered, on tfs 10/10 labs noted, holding tube feeds, dw rn, hg stable 8.3 currently 10/11 remains on tfs, supportive care, labs noted, no bleeding 10/12 remains obtunded, hgb 8.9, no hemolysis is seen 10/14 labs reviewed, no bleeding, pending potential hd if rn available 10/15 is on vent, with gtube, labs reviewed, no bleeding, to get hd soon 10/16 remains on vent, matt rn at bedside, wbc 15, abx prn, plt also higher, will monitor 10/17 on vent, continue on tube feeds via gtube, labs improved 10/18 labs noted, remains on vent, and tube feeds, no major changes 10/19 nad, no bleeding, labs reviewed, no night sweats, bp elevated, cards aware 10/21 labs pending, with gtube running, on mec vent, abx off 10/22 labs reviewed, no major changes, wbc 18, plt 791k, on gtube feeds 10/23 labs reviewed, meds noted, on epogen and lovenox sq, obtunded, is nv 9.16 labs are noted, wbc 28, hgb 8.6, no hemolysis is noted 10/27 labs reviewed, on mech vent, on gtube feeds, no bleeding wbc 21 Objective Objective Current Medications Medications (Trade) Dose Ordered Sig/Leonel Route PRN Reason Start Time Stop Time Status Last Admin Dose Admin Acetaminophen (Tylenol) 650 mg Q6H PRN GT Temp >100.5 10/21/19 20:45 11/20/19 20:44 10/24/19 10:25 Acyclovir (Zovirax) 400 mg Q12HR ORAL 10/23/19 13:00 11/22/19 12:59 10/28/19 20:02 Albumin Human 100 ml @ 100 mls/hr ONCE IV 10/28/19 22:00 10/28/19 23:59 Cefepime HCl 1 gm/ Dextrose 55 ml @ 110 mls/hr Q24H IVPB 10/27/19 12:00 11/03/19 11:59 10/28/19 11:16 Chlorhexidine Gluconate (Felipa-Hex 2%) 1 applic DAILY@2000 TOPIC 09/12/19 20:00 12/11/19 19:59 10/28/19 20:02 Clonidine HCl (Catapres Tab) 0.1 mg Q4H PRN GT For High Blood Pressure 09/09/19 12:30 12/08/19 05:29 09/15/19 04:10 Dextrose (Dextrose 50%) 25 ml Q30M PRN IV Hypoglycemia 08/09/19 07:30 11/07/19 07:29 Dextrose (Dextrose 50%) 50 ml Q30M PRN IV Hypoglycemia 08/09/19 07:30 11/07/19 07:29 Enoxaparin Sodium (Lovenox) 30 mg DAILY SUBQ 10/24/19 09:00 01/22/20 08:59 10/28/19 09:57 Epoetin Andreas (Epoetin Andreas(ESRD on dialysis)) 8,000 unit WED- SUBQ 10/25/19 21:00 01/23/20 20:59 10/27/19 21:06 Famotidine (Pepcid) 20 mg DAILY GT 08/30/19 09:00 11/28/19 08:59 10/28/19 09:54 Heparin Sodium (Porcine) (Heparin 5000 units/ml) 5,000 units POSTHD PRN INJ HD USE 10/28/19 08:00 10/28/19 23:59 Heparin Sodium (Porcine) (Heparin Sod 1000 units/ml 10ml) 2,000 unit ONCE PRN IV HD USE 10/28/19 08:00 10/28/19 23:59 Insulin Aspart (NovoLOG) Q6HR SUBQ 09/25/19 18:00 11/07/19 11:29 10/28/19 18:25 Lactobacillus Acidophilus (Culturelle) 1 tab EVERY 12 HOURS GT 10/03/19 21:00 12/13/19 17:59 10/28/19 20:03 Loperamide HCl (Imodium) 2 mg Q6H PRN NG Diarrhea 10/15/19 07:45 11/14/19 07:44 Metoprolol Tartrate (Lopressor) 200 mg Q12HR GT 08/09/19 09:00 11/07/19 08:59 10/27/19 08:37 Minoxidil (Loniten) 5 mg DAILY GT 08/09/19 09:00 11/07/19 08:59 10/28/19 09:55 Sodium Chloride 500 ml @ 999 mls/hr Q31M PRN IV sbp<90 10/28/19 21:30 11/27/19 21:29 Sodium Chloride 1,000 ml @ 500 mls/hr Q2H PRN IVLG sbp<90 during hd 10/28/19 08:00 10/28/19 23:59 Zinc Oxide (Zinc Oxide) 1 applic EVERY 12 HOURS TOPIC 10/03/19 09:00 11/08/19 17:59 10/28/19 20:03 Last 24 Hour Vital Signs Date Time Temp Pulse Resp B/P (MAP) Pulse Ox O2 Delivery O2 Flow Rate FiO2 10/28/19 20:03 106 111/53 10/28/19 20:00 98.4 106 19 111/53 (72) 100 10/28/19 20:00 24 10/28/19 20:00 Mechanical Ventilator 10/28/19 19:32 99 10/28/19 18:59 99 17 24 10/28/19 16:00 77 10/28/19 16:00 24 10/28/19 16:00 97.8 106 19 112/68 (83) 100 10/28/19 16:00 Mechanical Ventilator 10/28/19 15:10 77 22 24 10/28/19 12:00 98.1 95 18 101/62 (75) 100 10/28/19 12:00 106 10/28/19 12:00 24 10/28/19 12:00 Mechanical Ventilator 10/28/19 11:20 106 22 24 10/28/19 09:55 122/62 10/28/19 08:00 95 10/28/19 08:00 Mechanical Ventilator 10/28/19 08:00 24 10/28/19 08:00 98.4 92 18 109/64 (79) 100 10/28/19 07:00 92 18 24 10/28/19 04:00 Mechanical Ventilator 10/28/19 04:00 99.0 90 20 122/55 (77) 100 10/28/19 04:00 93 10/28/19 04:00 24 10/28/19 03:15 92 17 24 10/28/19 00:00 98.4 76 22 117/63 (81) 100 10/28/19 00:00 Mechanical Ventilator 10/28/19 00:00 95 10/27/19 23:30 95 24 24 10/27/19 21:00 87 126/63 10/27/19 20:00 24 10/27/19 20:00 87 10/27/19 20:00 Mechanical Ventilator 10/27/19 20:00 97.9 87 21 126/63 (84) 100 100 10/27/19 19:12 83 22 24 10/27/19 16:00 80 10/27/19 16:00 Mechanical Ventilator 10/27/19 16:00 98.6 79 21 127/67 (87) 99 100 10/27/19 16:00 24 10/27/19 15:00 81 19 24 10/27/19 12:00 Mechanical Ventilator 10/27/19 12:00 24 10/27/19 12:00 78 10/27/19 11:45 97.1 99 21 111/63 (79) 99 99 10/27/19 11:10 78 22 24 10/27/19 08:37 81 150/71 10/27/19 08:37 150/71 10/27/19 08:00 Mechanical Ventilator 10/27/19 08:00 24 10/27/19 08:00 98.3 81 21 150/71 (97) 100 10/27/19 07:56 104 10/27/19 07:00 103 22 24 10/27/19 04:00 Mechanical Ventilator 10/27/19 04:00 90 10/27/19 04:00 98.6 91 20 131/54 (79) 100 10/27/19 04:00 24 10/27/19 02:59 2 20 24 10/27/19 00:00 99.1 94 20 112/54 (73) 100 10/27/19 00:00 Mechanical Ventilator 10/26/19 23:42 92 10/26/19 22:59 94 20 24 Intake and Output 10/27/19 10/28/19 19:00 07:00 Intake Total 935 ml 550 ml Output Total 0 ml Balance 935 ml 550 ml Free Water 200 ml 100 ml Tube Feeding 495 ml 450 ml Other 240 ml Output Urine Total 0 ml Stool Total 0 ml Labs Test 10/26/19 02:45 10/26/19 12:02 10/26/19 17:20 10/26/19 23:28 White Blood Count 20.4 K/UL (4.8-10.8) Red Blood Count 3.57 M/UL (4.70-6.10) Hemoglobin 8.3 G/DL (14.2-18.0) Hematocrit 26.8 % (42.0-52.0) Mean Corpuscular Volume 75 FL (80-99) Mean Corpuscular Hemoglobin 23.2 PG (27.0-31.0) Mean Corpuscular Hemoglobin Concent 30.9 G/DL (32.0-36.0) Red Cell Distribution Width 16.6 % (11.6-14.8) Platelet Count 574 K/UL (150-450) Mean Platelet Volume 5.7 FL (6.5-10.1) Neutrophils (%) (Auto) % (45.0-75.0) Lymphocytes (%) (Auto) % (20.0-45.0) Monocytes (%) (Auto) % (1.0-10.0) Eosinophils (%) (Auto) % (0.0-3.0) Basophils (%) (Auto) % (0.0-2.0) Differential Total Cells Counted 100 Neutrophils % (Manual) 79 % (45-75) Lymphocytes % (Manual) 8 % (20-45) Monocytes % (Manual) 8 % (1-10) Eosinophils % (Manual) 4 % (0-3) Basophils % (Manual) 1 % (0-2) Band Neutrophils 0 % (0-8) Platelet Estimate Increased Platelet Morphology Normal Hypochromasia 2+ Anisocytosis 1+ Microcytosis 1+ Sodium Level 130 MMOL/L (136-145) Potassium Level 3.0 MMOL/L (3.5-5.1) Chloride Level 93 MMOL/L (98-107) Carbon Dioxide Level 21 MMOL/L (21-32) Anion Gap 16 mmol/L (5-15) Blood Urea Nitrogen 98 mg/dL (7-18) Creatinine 4.7 MG/DL (0.55-1.30) Estimat Glomerular Filtration Rate 12.1 mL/min (>60) Glucose Level 154 MG/DL (74-106) Calcium Level 8.0 MG/DL (8.5-10.1) Phosphorus Level 3.0 MG/DL (2.5-4.9) Random Vancomycin Level 21.3 ug/mL POC Whole Blood Glucose 141 MG/DL (74-106) 219 MG/DL (74-106) 233 MG/DL (74-106) Test 10/27/19 02:50 10/27/19 04:56 10/27/19 12:01 10/27/19 18:26 Random Vancomycin Level 16.1 ug/mL POC Whole Blood Glucose 207 MG/DL (74-106) 165 MG/DL (74-106) Test 10/28/19 00:49 10/28/19 05:30 10/28/19 07:05 POC Whole Blood Glucose 218 MG/DL (74-106) 189 MG/DL (74-106) White Blood Count 20.8 K/UL (4.8-10.8) Red Blood Count 3.72 M/UL (4.70-6.10) Hemoglobin 8.7 G/DL (14.2-18.0) Hematocrit 27.9 % (42.0-52.0) Mean Corpuscular Volume 75 FL (80-99) Mean Corpuscular Hemoglobin 23.5 PG (27.0-31.0) Mean Corpuscular Hemoglobin Concent 31.3 G/DL (32.0-36.0) Red Cell Distribution Width 16.7 % (11.6-14.8) Platelet Count 516 K/UL (150-450) Mean Platelet Volume 5.1 FL (6.5-10.1) Neutrophils (%) (Auto) % (45.0-75.0) Lymphocytes (%) (Auto) % (20.0-45.0) Monocytes (%) (Auto) % (1.0-10.0) Eosinophils (%) (Auto) % (0.0-3.0) Basophils (%) (Auto) % (0.0-2.0) Differential Total Cells Counted 100 Neutrophils % (Manual) 74 % (45-75) Lymphocytes % (Manual) 15 % (20-45) Monocytes % (Manual) 7 % (1-10) Eosinophils % (Manual) 4 % (0-3) Basophils % (Manual) 0 % (0-2) Band Neutrophils 0 % (0-8) Platelet Estimate Increased Platelet Morphology Normal Hypochromasia 2+ Anisocytosis 1+ Microcytosis 2+ Sodium Level 127 MMOL/L (136-145) Potassium Level 4.8 MMOL/L (3.5-5.1) Chloride Level 96 MMOL/L (98-107) Carbon Dioxide Level 16 MMOL/L (21-32) Anion Gap 15 mmol/L (5-15) Blood Urea Nitrogen 91 mg/dL (7-18) Creatinine 4.2 MG/DL (0.55-1.30) Estimat Glomerular Filtration Rate 13.8 mL/min (>60) Glucose Level 178 MG/DL (74-106) Calcium Level 8.8 MG/DL (8.5-10.1) Height (Feet): 5 Height (Inches): 10.00 Weight (Pounds): 123 Objective Physical Exam General Appearance: nad, Chronically Ill Head: normocephalic Eyes: right eye PERRL - Will not open left eye ENT: moist mucus membranes Neck: other - submandibular mass R, fairly rigid with resistance to rotation to L, tracheotomy Respiratory: decreased breath sounds, crackles, other - pacemaker, vent+ Cardiovascular: regular rate, rhythm, edema - anasarca Gastrointestinal: non tender, distended, other - G tube Genitourinary: other Musculoskeletal: other - Contractures all extremities Neurologic: sensory intact, motor weakness, responsive Psychiatric: other Skin: Decubitus/Ulcer - Stage III right elbow, stage III left elbow, stage II sacrum, stage III scrotum, warm/dry Fitz Campos MD Oct 28, 2019 21:34
[2019-10-29] VITALS (7 sets, daily range): BP systolic 107–130; BP diastolic 54–65
--- NOTE | 2019-10-29 01:00 | NUR ---
NURSE NOTES: Pt was given bed bath. gown and linen were changed. Wound care done PRN. Continue to monitor the patient.
[2019-10-29] MEDS: NovoLOG Insulin Flexpen SUBQ SCH ×3 (05:26→18:10)
--- NOTE | 2019-10-29 07:05 | NUR ---
NURSE HAND-OFF REPORT: Important Events on Shift: low bp Patient Status: Stable Diet: nephro at 45cc/hr Pending Orders: n Pending Results/Labs:[n Pending MD notification:n Latest Vital Signs: Temperature 98.2 , Pulse 92 , B/P 110 /56 , Respiratory Rate 19 , O2 SAT 100 , Mechanical Ventilator, O2 Flow Rate 15.0 . Vital Sign Comment: n EKG Rhythm: V-Paced Rhythm change?: Y MD Notified?: N - MD Response: Latest Delacruz Fall Score: 70 Fall Risk: High Risk Safety Measures: Call light Within Reach, Bed Alarm Zone 2, Side Rails Side Rails x3, Bed position Low and Locked. Fall Precautions: Yellow Socks Yellow Gown Patient Fall Education Report given to TAMICA العلي.
[2019-10-29 07:25] LABS: MEAN CORPUSCULAR VOLUME 75 FL (80-99); PLATELET COUNT 561 K/UL (150-450); RED BLOOD COUNT 3.87 M/UL (4.70-6.10); RED CELL DISTRIBUTION WIDTH 16.7 % (11.6-14.8); WHITE BLOOD COUNT 19.2 K/UL (4.8-10.8)
--- NOTE | 2019-10-29 07:25 | NUR ---
NURSE NOTES: Received report from RONEY RN. Patient in bed resting, no active s/s cardiac, respiratory distress noticed at this time. Patient obtunded, V-paced 88, Trach to vent Portex 8 AC 12 Fio2 20% PEEP 5. GT feeding on hold per order Nephro @ 45ml/h. Endorsed HD done yesterday 500ml out, during the night low BP, one albumin given, now BP 107/58. Rectal tube draining well to gravity at this time. IV on left FA 20G, left wrist 22G, asymptomatic, patent, intact. Bed in lowest position, side rails upx3, call light within reach, bed alarm on, Will continue to monitor.
[2019-10-29 07:50] LABS: CALCIUM 8.8 MG/DL (8.5-10.1); CREATININE 3.2 MG/DL (0.55-1.30); POTASSIUM 3.4 MMOL/L (3.5-5.1)
[2019-10-29] MEDS: Acyclovir 200mg Cap ORAL SCH ×2 (08:08→20:30)
[2019-10-29] MEDS: Zinc Oxide Oint 2oz TOPIC SCH ×2 (08:08→20:31)
[2019-10-29] MEDS: Lactobacillus-GG tablet GT SCH ×2 (08:08→20:18)
[2019-10-29] MEDS: Enoxaparin 30mg Inj SUBQ SCH (08:10)
[2019-10-29] MEDS: Minoxidil 2.5mg tab GT SCH (08:11)
[2019-10-29] MEDS: Metoprolol Tartrate 100mg tab GT SCH ×2 (08:11→20:20)
--- NOTE | 2019-10-29 08:50 | NUR ---
NURSE NOTES: Dr. Frank at the bedside, made aware K 3.4 today, no new order received.
--- NOTE | 2019-10-29 08:52 | Pulmonology Progress Note ---
Subjective ROS Limited/Unobtainable: No Constitutional: Denies: fever Gastrointestinal/Abdominal: Reports: other - had EGT & gastric biopsy yesterday Allergies: Coded Allergies: No Known Allergies (Unverified , 06/10/19) All Systems: reviewed and negative except above Objective Last 24 Hour Vital Signs Date Time Temp Pulse Resp B/P (MAP) Pulse Ox O2 Delivery O2 Flow Rate FiO2 10/29/19 08:11 88 107/58 10/29/19 08:11 107/58 10/29/19 08:00 97.7 88 12 107/58 (74) 100 10/29/19 08:00 24 10/29/19 07:00 88 14 24 10/29/19 04:00 Mechanical Ventilator 10/29/19 04:00 98.2 92 19 110/56 (74) 100 10/29/19 04:00 24 10/29/19 03:34 93 10/29/19 03:34 98.3 92 19 110/56 (74) 100 10/29/19 02:59 8 16 24 10/29/19 00:00 Mechanical Ventilator 10/29/19 00:00 98.3 108 19 109/54 (72) 100 10/28/19 23:40 108 10/28/19 22:56 106 17 24 10/28/19 20:03 106 111/53 10/28/19 20:00 98.4 106 19 111/53 (72) 100 10/28/19 20:00 24 10/28/19 20:00 Mechanical Ventilator 10/28/19 19:32 99 10/28/19 18:59 99 17 24 10/28/19 16:00 77 10/28/19 16:00 24 10/28/19 16:00 97.8 106 19 112/68 (83) 100 10/28/19 16:00 Mechanical Ventilator 10/28/19 15:10 77 22 24 10/28/19 12:00 98.1 95 18 101/62 (75) 100 10/28/19 12:00 106 10/28/19 12:00 24 10/28/19 12:00 Mechanical Ventilator 10/28/19 11:20 106 22 24 10/28/19 09:55 122/62 Intake and Output 10/28/19 10/29/19 19:00 07:00 Intake Total 705 ml 670 ml Output Total 0 ml 50 ml Balance 705 ml 620 ml Free Water 300 ml 30 ml IV Total 100 ml Tube Feeding 405 ml 540 ml Output Urine Total 0 ml Stool Total 0 ml 50 ml Hemodialysis UF 0 ml Laboratory Tests 10/28/19 23:10: POC Whole Blood Glucose 240H 10/29/19 05:24: POC Whole Blood Glucose 204H 10/29/19 06:50: White Blood Count 19.2H, Red Blood Count 3.87L, Hemoglobin 9.0L, Hematocrit 29.0L, Mean Corpuscular Volume 75L, Mean Corpuscular Hemoglobin 23.2L, Mean Corpuscular Hemoglobin Concent 31.0L, Red Cell Distribution Width 16.7H, Platelet Count 561H, Mean Platelet Volume 5.6L, Neutrophils (%) (Auto) , Lymphocytes (%) (Auto) , Monocytes (%) (Auto) , Eosinophils (%) (Auto) , Basophils (%) (Auto) , Neutrophils % (Manual) [Pending], Lymphocytes % (Manual) [Pending], Platelet Estimate [Pending], Platelet Morphology [Pending], Sodium Level 134L, Potassium Level 3.4L, Chloride Level 98, Carbon Dioxide Level 26, Anion Gap 10, Blood Urea Nitrogen 56H, Creatinine 3.2H, Estimat Glomerular Filtration Rate 18.9, Glucose Level 193H, Calcium Level 8.8 Current Medications Medications (Trade) Dose Ordered Sig/Leonel Route PRN Reason Start Time Stop Time Status Last Admin Dose Admin Acetaminophen (Tylenol) 650 mg Q6H PRN GT Temp >100.5 10/21/19 20:45 11/20/19 20:44 10/24/19 10:25 Acyclovir (Zovirax) 400 mg Q12HR ORAL 10/23/19 13:00 11/22/19 12:59 10/29/19 08:08 Cefepime HCl 1 gm/ Dextrose 55 ml @ 110 mls/hr Q24H IVPB 10/27/19 12:00 11/03/19 11:59 10/28/19 11:16 Chlorhexidine Gluconate (Felipa-Hex 2%) 1 applic DAILY@2000 TOPIC 09/12/19 20:00 12/11/19 19:59 10/28/19 20:02 Clonidine HCl (Catapres Tab) 0.1 mg Q4H PRN GT For High Blood Pressure 09/09/19 12:30 12/08/19 05:29 09/15/19 04:10 Dextrose (Dextrose 50%) 25 ml Q30M PRN IV Hypoglycemia 08/09/19 07:30 11/07/19 07:29 Dextrose (Dextrose 50%) 50 ml Q30M PRN IV Hypoglycemia 08/09/19 07:30 11/07/19 07:29 Enoxaparin Sodium (Lovenox) 30 mg DAILY SUBQ 10/24/19 09:00 01/22/20 08:59 10/29/19 08:10 Epoetin Andreas (Epoetin Andreas(ESRD on dialysis)) 8,000 unit WED-WED-WED SUBQ 10/25/19 21:00 01/23/20 20:59 10/27/19 21:06 Famotidine (Pepcid) 20 mg DAILY GT 08/30/19 09:00 11/28/19 08:59 10/29/19 08:08 Insulin Aspart (NovoLOG) Q6HR SUBQ 09/25/19 18:00 11/07/19 11:29 10/29/19 05:26 Lactobacillus Acidophilus (Culturelle) 1 tab EVERY 12 HOURS GT 10/03/19 21:00 12/13/19 17:59 10/29/19 08:08 Loperamide HCl (Imodium) 2 mg Q6H PRN NG Diarrhea 10/15/19 07:45 11/14/19 07:44 Metoprolol Tartrate (Lopressor) 200 mg Q12HR GT 08/09/19 09:00 11/07/19 08:59 10/27/19 08:37 Minoxidil (Loniten) 5 mg DAILY GT 08/09/19 09:00 11/07/19 08:59 10/28/19 09:55 Sodium Chloride 500 ml @ 999 mls/hr Q31M PRN IV sbp<90 10/28/19 21:30 11/27/19 21:29 Zinc Oxide (Zinc Oxide) 1 applic EVERY 12 HOURS TOPIC 10/03/19 09:00 11/08/19 17:59 10/29/19 08:08 Assessment/Plan Assessment/Plan Pulmonary Progress Note Assessment/Plan: IMPRESSION: 1. anemia. 2. fevers improved 3. Leukocytosis. 4. hypotension 5. Acute on chronic renal failure. 6. Hyponatremia. 7. Severe protein-calorie malnutrition. 8. Significantly elevated C-reactive protein concerning for infectious etiology. 9. Tracheostomy, G-tube. 10. Ventilator dependence. 11. anasarca 12. Hematuria 13. V pacing 14. hyponatremia 15. transaminitis, HIDA negative 16. Required volume challenge overnight - labs stable PLAN chronic care; unable to place care noted- bolus prn on vent/ no wean monitor labs and optimize ID follow up - wbc now worse dialysis ongoing- adjust lytes prognosis poor for recovery impression, plan, and exam edited and reviewed in detail care discussed with RN Subjective ROS Limited/Unobtainable: Yes Allergies: Coded Allergies: No Known Allergies (Unverified , 06/10/19) Subjective stable on vent Objective Vital Signs Noted Height (Feet): 5 Height (Inches): 10.00 Weight (Pounds): 155 Objective GENERAL: Ill-appearing male, chronically debilitated. HEENT: Tracheostomy in midline. Questionable fullness in the submandibular region. LUNGS: Coarse breath sounds. reduced breath sounds CARDIAC: S1, S2. Regular rate and rhythm. ABDOMEN: Soft. G-tube. EXTREMITIES: With noted edema. NEUROLOGICAL: Poorly responsive, weak diffusely. Laboratory Tests noted CXR: Stable Kenny Mccurdy MD Oct 29, 2019 08:52
--- NOTE | 2019-10-29 09:12 | Nephrology Progress Note ---
Assessment/Plan Problem List: (1) UTI (urinary tract infection) (2) VRE (vancomycin-resistant Enterococci) infection (3) Hyponatremia (4) CKD (chronic kidney disease) stage 5, GFR less than 15 ml/min (5) Malnutrition (6) Anasarca (7) Decubitus skin ulcer (8) Anemia (9) Ventilator dependent (10) Right lower lobe pneumonia Plan dialysis stable, cont pulm care HD TTS Subjective ROS Limited/Unobtainable: Yes Objective Objective Last 24 Hour Vital Signs Date Time Temp Pulse Resp B/P (MAP) Pulse Ox O2 Delivery O2 Flow Rate FiO2 10/29/19 08:11 88 107/58 10/29/19 08:11 107/58 10/29/19 08:00 97.7 88 12 107/58 (74) 100 10/29/19 08:00 87 10/29/19 08:00 24 10/29/19 07:00 88 14 24 10/29/19 04:00 Mechanical Ventilator 10/29/19 04:00 98.2 92 19 110/56 (74) 100 10/29/19 04:00 24 10/29/19 03:34 93 10/29/19 03:34 98.3 92 19 110/56 (74) 100 10/29/19 02:59 8 16 24 10/29/19 00:00 Mechanical Ventilator 10/29/19 00:00 98.3 108 19 109/54 (72) 100 10/28/19 23:40 108 10/28/19 22:56 106 17 24 10/28/19 20:03 106 111/53 10/28/19 20:00 98.4 106 19 111/53 (72) 100 10/28/19 20:00 24 10/28/19 20:00 Mechanical Ventilator 10/28/19 19:32 99 10/28/19 18:59 99 17 24 10/28/19 16:00 77 10/28/19 16:00 24 10/28/19 16:00 97.8 106 19 112/68 (83) 100 10/28/19 16:00 Mechanical Ventilator 10/28/19 15:10 77 22 24 10/28/19 12:00 98.1 95 18 101/62 (75) 100 10/28/19 12:00 106 10/28/19 12:00 24 10/28/19 12:00 Mechanical Ventilator 10/28/19 11:20 106 22 24 10/28/19 09:55 122/62 Intake and Output 10/28/19 10/29/19 19:00 07:00 Intake Total 705 ml 670 ml Output Total 0 ml 50 ml Balance 705 ml 620 ml Free Water 300 ml 30 ml IV Total 100 ml Tube Feeding 405 ml 540 ml Output Urine Total 0 ml Stool Total 0 ml 50 ml Hemodialysis UF 0 ml Laboratory Tests 10/28/19 23:10: POC Whole Blood Glucose 240H 10/29/19 05:24: POC Whole Blood Glucose 204H 10/29/19 06:50: White Blood Count 19.2H, Red Blood Count 3.87L, Hemoglobin 9.0L, Hematocrit 29.0L, Mean Corpuscular Volume 75L, Mean Corpuscular Hemoglobin 23.2L, Mean Cor puscular Hemoglobin Concent 31.0L, Red Cell Distribution Width 16.7H, Platelet Count 561H, Mean Platelet Volume 5.6L, Neutrophils (%) (Auto) , Lymphocytes (%) (Auto) , Monocytes (%) (Auto) , Eosinophils (%) (Auto) , Basophils (%) (Auto) , Neutrophils % (Manual) [Pending], Lymphocytes % (Manual) [Pending], Platelet Estimate [Pending], Platelet Morphology [Pending], Sodium Level 134L, Potassium Level 3.4L, Chloride Level 98, Carbon Dioxide Level 26, Anion Gap 10, Blood Urea Nitrogen 56H, Creatinine 3.2H, Estimat Glomerular Filtration Rate 18.9, Glucose Level 193H, Calcium Level 8.8 Height (Feet): 5 Height (Inches): 10.00 Weight (Pounds): 123 General Appearance: lethargic, other - on vent Cardiovascular: regular rhythm Respiratory/Chest: crackles/rales Abdomen: non tender Extremities: no edema Neurologic: unresponsive Carmelo Frank MD Oct 29, 2019 09:12
--- NOTE | 2019-10-29 11:27 | Hematology/Onc Progress Note ---
Assessment/Plan Assessment/Plan Assessment/recs # Anemia due to chronic disease/kidney disease as well, gi bleed + occult + noted --> was on iron in the past, now on hold --> has been started on Epogen sq --> as per renal care --> egd done and shows gastritis --> on ppi --> egd showed gastritis, colo recently done --> hgb 9-->8. 7-->7.6-->9.2-->8.9-->9.2->9.3-->8.8->9.9-->9.2-->8.1-->8.7-->7.9-->8.6-->8.9--> 8.2->9-->9.3->8.9-->9.5-->10.6->9.2-->10->8.9--> 8.3-->8.9-->9.9-->9.3-->9-->9.3->11-->8.6->8.7>9 --> spep ordered->wnl # Leukocytosis - with multiple infections, VRE UTI, flow is negative --> wbc trend 33-->28-->25->23->22->23->24->17.3-->17-->14->16-->15.6-->14-->14->13->19->18->1 7 ->22->22->19->17-->18->20-->15-->14->16-->14-->17->18-->17->15-->16-->17->28->19 --> on abx, linezolid and zosyn--> zosyn-->gent-->off-->vanc/zosyn --> + blood cultures with coag neg staph likely contaminated --> as per id recs --> has ordered a flow cytometry (with pathology) --> does show increased nK cell activity --> JOURDAN 2 and bcr-abl labs ordered (these are send outs)->negative --> plt 585-->613-->649-->669->663-->529-->506-->620-->720 # Elevated ddimer on admission --> duplex lower legs neg for dvt # Respiratory failure --> per pulm, s/p trach --> COVID 19 test negative x 2 # Hyperlipidemia --> statin po # Dysphagia s/p gtube with nepro --> per gi # ESRD with r fem julito --> hd as per renal # Dvt ppx lovenox sq Appreciate consultation and dw Rn Subjective Constitutional: Denies: no symptoms, chills, fever, malaise, weakness, other HEENT: Denies: no symptoms, eye pain, blurred vision, tearing, double vision, ear pain, ear discharge, nose pain, nose congestion, throat pain, throat swelling, mouth pain, mouth swelling, other Cardiovascular: Denies: no symptoms, chest pain, edema, irregular heart rate, lightheadedness, palpitations, syncope, other Respiratory: Denies: no symptoms, cough, shortness of breath, SOB with excertion, SOB at rest, sputum, wheezing, other Neurologic/Psychiatric: Denies: no symptoms, anxiety, depressed, emotional problems, headache, numbness, paresthesia, pre-existing deficit, seizure, tingling, tremors, weakness, other Endocrine: Denies: no symptoms, excessive sweating, flushing, intolerance to cold, intolerance to heat, increased hunger, increased thirst, increased urine, unexplained weight gain, unexplained weight loss, other Allergies: Coded Allergies: No Known Allergies (Unverified , 06/10/19) Subjective 08/15 meds noted, no bleeding, hgb 8.8, wbc 28, path flow pending 08/16 flow pending dw pathologist, results pending, wbc 25, hgb 9 08/17 labs reviewed, meds reviewed, meds noted, no night sweats 08/19 remains obtunded, on vent/trach, no bleeding wbc 21.7 08/20 labs have been reviewed, no bleeding, wbc still elev, path reviewed 08/21 labs are noted, no bleeding, on vent, wbc better 08/22 labs noted, no bleeding, meds reviewed, wbc 24 hgb 7.6 08/23 vent, off abx, c diff negative, h/h stable 08/24 labs reviewed, on abx, wbc 17, hgb 8.9, no hemolysis 08/26 reviewed flow and is negative for leukemia, matt rn 08/27 meds reviewed, no night sweats, matt rn, no major bleeding 08/28 meds reivewed, labs noted 08/29 wbc is stable, approx 15, hgb 8.8, no hemolysis 08/30 labs are noted, is for colo today, hgb 9.9 08/31 right fem julito in place, unchanged, hgb 9.2, gi aware 09/01 labs noted, hgb 8.8, plt >600, no bleeding 09/02 labs noted, no bleeding, with elev wbc still, no new changes 09/03 meds are noted, no bleeding, labs reviewed hgb 8.6 09/04 no major events, hd as per renal, abx, no bleeding hgb low 09/05 labs are noted, no bleeding, meds have been reviewed 09/06 no new labs no hemolysis, cbc is noted, no bleeding 09/07 meds reviewed, no bleeding, matt rn, permacath functioning well 09/09 meds reviewed, wbc still elevated, as per id recs, cbc noted 09/10 is obtunded, with gutbe in place, labs reviewed 09/11 obtunded, as per id, observe now off abx, labs noted, wbc 19 09/12 cbc is pending, remains on epogen, also off abx 09/13 labs reviewed, no bleeding, elev wbc, no night sweats 09/14 meds noted, no bleeding, wbc 19, hgb 9.5, no night sweats 09/21 obtunded, remains on vent, labs noted, no bleeding, hgb 8.9 09/22 obtunded, labs noted, no bleeding, on vent, unchanged 09/23 unchanges, wbc remains elevated 20k, on abx, on vent 09/24 labs have been reviewed, no bleeding, wbc 15, may need abx 09/25 formula gtube changed, labs noted, remains obtunded, hgb 9.3 09/26 labs have been reviewed, no bleeding, matt rn, no night sweats 09/27 meds reviewed, no bleeding, wbc 14, on abx, remains obtunded 09/28 remains obtunded, no bleeding, wbc better, hgb 8.9, no hemolysis, plt 506 09/30 on colisitn, wbc elevated, cefepime added per id, hgb stable 10/01 labs reviewed, no bleeding, matt rn, no major events noted, wbc 14, hgb 10.6 10/02 labs have been noted, hgb 9.2, wbc 17, on abx, matt rn 10/03 continue on tube feeds, no bleeding, on vent, wbc remains elevated 10/04 remains ibtunded, is on a mechanical ventilator with tube feeds noted 10/05 labs are noted, hgb 8.6, wbc remains elevated, have ordered for spep 10/07 obtunded on vent, with gtube feeds, labs reviewed, matt rn 10/08 labs are noted, on vent/trach, hgb 10.2, remains obtunded 10/09 labns noted, wbc 15, hgb 8.9, remains altered, on tfs 10/10 labs noted, holding tube feeds, matt rn, hg stable 8.3 currently 10/11 remains on tfs, supportive care, labs noted, no bleeding 10/12 remains obtunded, hgb 8.9, no hemolysis is seen 10/14 labs reviewed, no bleeding, pending potential hd if rn available 10/15 is on vent, with gtube, labs reviewed, no bleeding, to get hd soon 10/16 remains on vent, matt rn at bedside, wbc 15, abx prn, plt also higher, will monitor 10/17 on vent, continue on tube feeds via gtube, labs improved 10/18 labs noted, remains on vent, and tube feeds, no major changes 10/19 nad, no bleeding, labs reviewed, no night sweats, bp elevated, cards aware 10/21 labs pending, with gtube running, on mec vent, abx off 10/22 labs reviewed, no major changes, wbc 18, plt 791k, on gtube feeds 10/23 labs reviewed, meds noted, on epogen and lovenox sq, obtunded, is nv 9.16 labs are noted, wbc 28, hgb 8.6, no hemolysis is noted 10/27 labs reviewed, on mech vent, on gtube feeds, no bleeding wbc 21 10/28 labs noted, wbc 19, plt remains elevated, hd as per renal Dr. Frank Objective Objective Current Medications Medications (Trade) Dose Ordered Sig/Leonel Route PRN Reason Start Time Stop Time Status Last Admin Dose Admin Acetaminophen (Tylenol) 650 mg Q6H PRN GT Temp >100.5 10/21/19 20:45 11/20/19 20:44 10/24/19 10:25 Acyclovir (Zovirax) 400 mg Q12HR ORAL 10/23/19 13:00 11/22/19 12:59 10/29/19 08:08 Cefepime HCl 1 gm/ Dextrose 55 ml @ 110 mls/hr Q24H IVPB 10/27/19 12:00 11/03/19 11:59 10/28/19 11:16 Chlorhexidine Gluconate (Felipa-Hex 2%) 1 applic DAILY@2000 TOPIC 09/12/19 20:00 12/11/19 19:59 10/28/19 20:02 Clonidine HCl (Catapres Tab) 0.1 mg Q4H PRN GT For High Blood Pressure 09/09/19 12:30 12/08/19 05:29 09/15/19 04:10 Dextrose (Dextrose 50%) 25 ml Q30M PRN IV Hypoglycemia 08/09/19 07:30 11/07/19 07:29 Dextrose (Dextrose 50%) 50 ml Q30M PRN IV Hypoglycemia 08/09/19 07:30 11/07/19 07:29 Enoxaparin Sodium (Lovenox) 30 mg DAILY SUBQ 10/24/19 09:00 01/22/20 08:59 10/29/19 08:10 Epoetin Andreas (Epoetin Andreas(ESRD on dialysis)) 8,000 unit WED-WED-WED SUBQ 10/25/19 21:00 01/23/20 20:59 10/27/19 21:06 Famotidine (Pepcid) 20 mg DAILY GT 08/30/19 09:00 11/28/19 08:59 10/29/19 08:08 Insulin Aspart (NovoLOG) Q6HR SUBQ 09/25/19 18:00 11/07/19 11:29 10/29/19 05:26 Lactobacillus Acidophilus (Culturelle) 1 tab EVERY 12 HOURS GT 10/03/19 21:00 12/13/19 17:59 10/29/19 08:08 Loperamide HCl (Imodium) 2 mg Q6H PRN NG Diarrhea 10/15/19 07:45 11/14/19 07:44 Metoprolol Tartrate (Lopressor) 200 mg Q12HR GT 08/09/19 09:00 11/07/19 08:59 10/27/19 08:37 Minoxidil (Loniten) 5 mg DAILY GT 08/09/19 09:00 11/07/19 08:59 10/28/19 09:55 Sodium Chloride 500 ml @ 999 mls/hr Q31M PRN IV sbp<90 10/28/19 21:30 11/27/19 21:29 Zinc Oxide (Zinc Oxide) 1 applic EVERY 12 HOURS TOPIC 10/03/19 09:00 11/08/19 17:59 10/29/19 08:08 Last 24 Hour Vital Signs Date Time Temp Pulse Resp B/P (MAP) Pulse Ox O2 Delivery O2 Flow Rate FiO2 10/29/19 11:14 84 12 24 10/29/19 08:11 88 107/58 10/29/19 08:11 107/58 10/29/19 08:00 97.7 88 12 107/58 (74) 100 10/29/19 08:00 87 10/29/19 08:00 Mechanical Ventilator 10/29/19 08:00 24 10/29/19 07:00 88 14 24 10/29/19 04:00 Mechanical Ventilator 10/29/19 04:00 98.2 92 19 110/56 (74) 100 10/29/19 04:00 24 10/29/19 03:34 93 10/29/19 03:34 98.3 92 19 110/56 (74) 100 10/29/19 02:59 8 16 24 10/29/19 00:00 Mechanical Ventilator 10/29/19 00:00 98.3 108 19 109/54 (72) 100 10/28/19 23:40 108 10/28/19 22:56 106 17 24 10/28/19 20:03 106 111/53 10/28/19 20:00 98.4 106 19 111/53 (72) 100 10/28/19 20:00 24 10/28/19 20:00 Mechanical Ventilator 10/28/19 19:32 99 10/28/19 18:59 99 17 24 10/28/19 16:00 77 10/28/19 16:00 24 10/28/19 16:00 97.8 106 19 112/68 (83) 100 10/28/19 16:00 Mechanical Ventilator 10/28/19 15:10 77 22 24 10/28/19 12:00 98.1 95 18 101/62 (75) 100 10/28/19 12:00 106 10/28/19 12:00 24 10/28/19 12:00 Mechanical Ventilator 10/28/19 11:20 106 22 24 10/28/19 09:55 122/62 10/28/19 08:00 95 10/28/19 08:00 Mechanical Ventilator 10/28/19 08:00 24 10/28/19 08:00 98.4 92 18 109/64 (79) 100 10/28/19 07:00 92 18 24 10/28/19 04:00 Mechanical Ventilator 10/28/19 04:00 99.0 90 20 122/55 (77) 100 10/28/19 04:00 93 10/28/19 04:00 24 10/28/19 03:15 92 17 24 10/28/19 00:00 98.4 76 22 117/63 (81) 100 10/28/19 00:00 Mechanical Ventilator 10/28/19 00:00 95 10/27/19 23:30 95 24 24 10/27/19 21:00 87 126/63 10/27/19 20:00 24 10/27/19 20:00 87 10/27/19 20:00 Mechanical Ventilator 10/27/19 20:00 97.9 87 21 126/63 (84) 100 100 10/27/19 19:12 83 22 24 10/27/19 16:00 80 10/27/19 16:00 Mechanical Ventilator 10/27/19 16:00 98.6 79 21 127/67 (87) 99 100 20 16:00 24 10/27/19 15:00 81 19 24 10/27/19 12:00 Mechanical Ventilator 10/27/19 12:00 24 10/27/19 12:00 78 10/27/19 11:45 97.1 99 21 111/63 (79) 99 99 Intake and Output 10/28/19 10/29/19 19:00 07:00 Intake Total 705 ml 670 ml Output Total 0 ml 50 ml Balance 705 ml 620 ml Free Water 300 ml 30 ml IV Total 100 ml Tube Feeding 405 ml 540 ml Output Urine Total 0 ml Stool Total 0 ml 50 ml Hemodialysis UF 0 ml Labs Test 10/26/19 12:02 10/26/19 17:20 10/26/19 23:28 10/27/19 02:50 POC Whole Blood Glucose 141 MG/DL (74-106) 219 MG/DL (74-106) 233 MG/DL (74-106) Random Vancomycin Level 16.1 ug/mL Test 10/27/19 04:56 10/27/19 12:01 10/27/19 18:26 10/28/19 00:49 POC Whole Blood Glucose 207 MG/DL (74-106) 165 MG/DL (74-106) 218 MG/DL (74-106) Test 10/28/19 05:30 10/28/19 07:05 10/28/19 23:10 10/29/19 05:24 POC Whole Blood Glucose 189 MG/DL (74-106) 240 MG/DL (74-106) 204 MG/DL (74-106) White Blood Count 20.8 K/UL (4.8-10.8) Red Blood Count 3.72 M/UL (4.70-6.10) Hemoglobin 8.7 G/DL (14.2-18.0) Hematocrit 27.9 % (42.0-52.0) Mean Corpuscular Volume 75 FL (80-99) Mean Corpuscular Hemoglobin 23.5 PG (27.0-31.0) Mean Corpuscular Hemoglobin Concent 31.3 G/DL (32.0-36.0) Red Cell Distribution Width 16.7 % (11.6-14.8) Platelet Count 516 K/UL (150-450) Mean Platelet Volume 5.1 FL (6.5-10.1) Neutrophils (%) (Auto) % (45.0-75.0) Lymphocytes (%) (Auto) % (20.0-45.0) Monocytes (%) (Auto) % (1.0-10.0) Eosinophils (%) (Auto) % (0.0-3.0) Basophils (%) (Auto) % (0.0-2.0) Differential Total Cells Counted 100 Neutrophils % (Manual) 74 % (45-75) Lymphocytes % (Manual) 15 % (20-45) Monocytes % (Manual) 7 % (1-10) Eosinophils % (Manual) 4 % (0-3) Basophils % (Manual) 0 % (0-2) Band Neutrophils 0 % (0-8) Platelet Estimate Increased Platelet Morphology Normal Hypochromasia 2+ Anisocytosis 1+ Microcytosis 2+ Sodium Level 127 MMOL/L (136-145) Potassium Level 4.8 MMOL/L (3.5-5.1) Chloride Level 96 MMOL/L (98-107) Carbon Dioxide Level 16 MMOL/L (21-32) Anion Gap 15 mmol/L (5-15) Blood Urea Nitrogen 91 mg/dL (7-18) Creatinine 4.2 MG/DL (0.55-1.30) Estimat Glomerular Filtration Rate 13.8 mL/min (>60) Glucose Level 178 MG/DL (74-106) Calcium Level 8.8 MG/DL (8.5-10.1) Test 10/29/19 06:50 10/29/19 11:19 White Blood Count 19.2 K/UL (4.8-10.8) Red Blood Count 3.87 M/UL (4.70-6.10) Hemoglobin 9.0 G/DL (14.2-18.0) Hematocrit 29.0 % (42.0-52.0) Mean Corpuscular Volume 75 FL (80-99) Mean Corpuscular Hemoglobin 23.2 PG (27.0-31.0) Mean Corpuscular Hemoglobin Concent 31.0 G/DL (32.0-36.0) Red Cell Distribution Width 16.7 % (11.6-14.8) Platelet Count 561 K/UL (150-450) Mean Platelet Volume 5.6 FL (6.5-10.1) Neutrophils (%) (Auto) % (45.0-75.0) Lymphocytes (%) (Auto) % (20.0-45.0) Monocytes (%) (Auto) % (1.0-10.0) Eosinophils (%) (Auto) % (0.0-3.0) Basophils (%) (Auto) % (0.0-2.0) Differential Total Cells Counted 100 Neutrophils % (Manual) 79 % (45-75) Lymphocytes % (Manual) 13 % (20-45) Monocytes % (Manual) 6 % (1-10) Eosinophils % (Manual) 2 % (0-3) Basophils % (Manual) 0 % (0-2) Band Neutrophils 0 % (0-8) Platelet Estimate Increased Platelet Morphology Normal Hypochromasia 1+ Anisocytosis 1+ Microcytosis 1+ Sodium Level 134 MMOL/L (136-145) Potassium Level 3.4 MMOL/L (3.5-5.1) Chloride Level 98 MMOL/L (98-107) Carbon Dioxide Level 26 MMOL/L (21-32) Anion Gap 10 mmol/L (5-15) Blood Urea Nitrogen 56 mg/dL (7-18) Creatinine 3.2 MG/DL (0.55-1.30) Estimat Glomerular Filtration Rate 18.9 mL/min (>60) Glucose Level 193 MG/DL (74-106) Calcium Level 8.8 MG/DL (8.5-10.1) POC Whole Blood Glucose 142 MG/DL (74-106) Height (Feet): 5 Height (Inches): 10.00 Weight (Pounds): 123 Objective Physical Exam General Appearance: nad, Chronically Ill Head: normocephalic Eyes: right eye PERRL - Will not open left eye ENT: moist mucus membranes Neck: other - submandibular mass R, fairly rigid with resistance to rotation to L, tracheotomy Respiratory: decreased breath sounds, crackles, other - pacemaker, vent+ Cardiovascular: regular rate, rhythm, edema - anasarca Gastrointestinal: non tender, distended, other - G tube Genitourinary: other Musculoskeletal: other - Contractures all extremities Neurologic: sensory intact, motor weakness, responsive Psychiatric: other Skin: Decubitus/Ulcer - Stage III right elbow, stage III left elbow, stage II sacrum, stage III scrotum, warm/dry Fitz Campos MD Oct 29, 2019 11:27
[2019-10-29] MEDS: Cefepime HCl 1 GM in D5W 55 ML IVPB SCH (12:13)
--- NOTE | 2019-10-29 13:21 | Surgery Progress Note ---
Surgery Progress Note Subjective Procedure Performed Right femoral temporary hemodialysis catheter removal Additional Comments no acute events Objective Last 24 Hour Vital Signs Date Time Temp Pulse Resp B/P (MAP) Pulse Ox O2 Delivery O2 Flow Rate FiO2 10/29/19 12:00 Mechanical Ventilator 10/29/19 12:00 97.2 83 16 110/58 (75) 100 10/29/19 12:00 24 10/29/19 12:00 84 10/29/19 11:14 84 12 24 10/29/19 08:11 88 107/58 10/29/19 08:11 107/58 10/29/19 08:00 97.7 88 12 107/58 (74) 100 10/29/19 08:00 87 10/29/19 08:00 Mechanical Ventilator 10/29/19 08:00 24 10/29/19 07:00 88 14 24 10/29/19 04:00 Mechanical Ventilator 10/29/19 04:00 98.2 92 19 110/56 (74) 100 10/29/19 04:00 24 10/29/19 03:34 93 10/29/19 03:34 98.3 92 19 110/56 (74) 100 10/29/19 02:59 8 16 24 10/29/19 00:00 Mechanical Ventilator 10/29/19 00:00 98.3 108 19 109/54 (72) 100 10/28/19 23:40 108 10/28/19 22:56 106 17 24 10/28/19 20:03 106 111/53 10/28/19 20:00 98.4 106 19 111/53 (72) 100 10/28/19 20:00 24 10/28/19 20:00 Mechanical Ventilator 10/28/19 19:32 99 10/28/19 18:59 99 17 24 10/28/19 16:00 77 10/28/19 16:00 24 10/28/19 16:00 97.8 106 19 112/68 (83) 100 10/28/19 16:00 Mechanical Ventilator 10/28/19 15:10 77 22 24 I&O Intake and Output 10/28/19 10/29/19 19:00 07:00 Intake Total 705 ml 670 ml Output Total 0 ml 50 ml Balance 705 ml 620 ml Free Water 300 ml 30 ml IV Total 100 ml Tube Feeding 405 ml 540 ml Output Urine Total 0 ml Stool Total 0 ml 50 ml Hemodialysis UF 0 ml Dressing: other Wound: other Cardiovascular: RSR Respiratory: decreased breath sounds Abdomen: soft, non-tender, present bowel sounds Extremities: no tenderness, no cyanosis Laboratory Tests Test 10/28/19 23:10 10/29/19 05:24 10/29/19 06:50 10/29/19 11:19 POC Whole Blood Glucose 240 MG/DL (74-106) H 204 MG/DL (74-106) H 142 MG/DL (74-106) H White Blood Count 19.2 K/UL (4.8-10.8) H Red Blood Count 3.87 M/UL (4.70-6.10) L Hemoglobin 9.0 G/DL (14.2-18.0) L Hematocrit 29.0 % (42.0-52.0) L Mean Corpuscular Volume 75 FL (80-99) L Mean Corpuscular Hemoglobin 23.2 PG (27.0-31.0) L Mean Corpuscular Hemoglobin Concent 31.0 G/DL (32.0-36.0) L Red Cell Distribution Width 16.7 % (11.6-14.8) H Platelet Count 561 K/UL (150-450) H Mean Platelet Volume 5.6 FL (6.5-10.1) L Neutrophils (%) (Auto) % (45.0-75.0) Lymphocytes (%) (Auto) % (20.0-45.0) Monocytes (%) (Auto) % (1.0-10.0) Eosinophils (%) (Auto) % (0.0-3.0) Basophils (%) (Auto) % (0.0-2.0) Differential Total Cells Counted 100 Neutrophils % (Manual) 79 % (45-75) H Lymphocytes % (Manual) 13 % (20-45) L Monocytes % (Manual) 6 % (1-10) Eosinophils % (Manual) 2 % (0-3) Basophils % (Manual) 0 % (0-2) Band Neutrophils 0 % (0-8) Platelet Estimate Increased H Platelet Morphology Normal Hypochromasia 1+ Anisocytosis 1+ Microcytosis 1+ Sodium Level 134 MMOL/L (136-145) L Potassium Level 3.4 MMOL/L (3.5-5.1) L Chloride Level 98 MMOL/L (98-107) Carbon Dioxide Level 26 MMOL/L (21-32) Anion Gap 10 mmol/L (5-15) Blood Urea Nitrogen 56 mg/dL (7-18) H Creatinine 3.2 MG/DL (0.55-1.30) H Estimat Glomerular Filtration Rate 18.9 mL/min (>60) Glucose Level 193 MG/DL (74-106) H Calcium Level 8.8 MG/DL (8.5-10.1) Plan Problems: (1) Anemia (2) Hyponatremia (3) Leukocytosis Assessment & Plan: Tracheostomy, left chest pacemaker are again demonstrated. There is bilateral interstitial and airspace disease and bilateral pleural fluid again demonstrated. This appears more severe than on the prior study. Bilateral interstitial and airspace infiltrates versus edema. Bilateral pleural effusions Leukocytosis, anemia, tachycardia, abnormal labs. Wound evaluated and likely etiology of patient's sepsis. Leukocytosis etiology work-up antibiotics per infectious disease Appreciate nephrology input transfuse with dialysis We will follow with recommendations thank you allowing participation's care plan HD access temp HD discussed with medical teams line okay HD as per renal persistent leukocytosis flow cyto noted improving trending down right fem line removed wbc fluctuating h/h stable lft's elevated There is a right pleural effusion Gallbladder demonstrates tiny wall adherent nonmobile echogenic foci, some possible mural calcifications, and comet tail artifact in the anterior wall. Patient unable to report sonographic Kent's sign. Common bile duct measures 4 mm in diameter. No intrahepatic biliary ductal dilatation. Liver demonstrates normal echogenicity, no focal abnormality. There is some surface nodularity. Portal vein and hepatic veins are patent. Pancreas is incompletely visualized due to overlying bowel gas, visualized portions are unremarkable. Spleen is unremarkable. Left kidney measures 8.7 cm in length. Right kidney measures 8.9 cm length. Both kidneys demonstrate increased echogenicity. There is no hydronephrosis. No focal abnormality . Abdominal aorta is partially obscured by bowel gas, visualized portions are non-aneurysmal . A gastrostomy is noted Impression: Tiny wall adherent nonmobile gallbladder echogenic foci, may reflect wall adherent calculi, small polyps, and/or pleural calcifications. Anterior wall comet tail artifact suggests foci of adenomyomatosis. Normal caliber common bile duct Possible hepatic surface nodularity, could indicate cirrhotic change Echogenic kidneys, consistent with medical renal disease. No hydronephrosis Right pleural effusion Gastrostomy Note nonvisualization of portions of the pancreas and abdominal aorta HIDA NEGATIVE trend labs (4) Ventilator dependent (5) Right lower lobe pneumonia (6) Hypokalemia (7) Hyperkalemia (8) Anasarca (9) Decubitus skin ulcer Assessment & Plan: pt presented on admission with generalized edemae.Skin assessed under tracheostomy and no areas of concerns noted. GT Insertion is marginally erythematous with small amt slough at stoma. Unstageable Pressure Injury R elbow. Base of wound is 100% yellow slough,Borders are erythematous. Wound oozing small amt haemopurulent exudate.Darker skin tone without elevation in skin temp or erythema periwound. Pt's penis and scrotum are grossly edematous and enlarged and weeping serous exudate from numerous sites both from penis and scrotum. Two small open wounds noted at base of at base of shaft of penis ,and contreras aspect of scrotum. Both wounds oozing large amt sanguineous and serosanguineous exudate. Multiple open wounds with Biofilm at base of each wounds noted to contreras/lateral,inferior and posterior aspects of scrotum. These wounds noted to be oozing moderate amts of serosanguineous exudate. Hypertrophic scar with scattered areas of hyperpigmentation noted to Sacrum. DTPI noted to L Buttocks (L)7cm x (W)9cm. Base of wound is purple and indurated.Darker skin tone without rogelio thema,induration or fluctuance R and L ischial tuberosities. Both heels are boggy with non-blanchable erythema. Tx.Plan: Cleanse wound R elbow with Saline. Apply TheraHoney, Apply Moisture Barrier Paste periwound. Cover with Optifoam drsg.Change Daily and prn. Wash GT site with soap and water.Pat dry. Apply Zinc Oxide Paste to GT site Daily. Leave Open to Air. Apply Zinc Oxide Paste to entire Scrotum, Place ABD pads to R and L lateral, and posterior aspects of scrotum TWICE daily. Apply Cavilon Skin Barrier to malleoli and both Heels. Cover each site with Optifoam drsgs. Change every 7 days and prn. Reposition at least every 2hours or as tolerated. Off-load heels with Pillows. APM/BECCA Mattress overlay. (10) Malnutrition Assessment & Plan: DAILY ESTIMATED NEEDS: Needs based on Renal, critical care, wound/ 61kg 22-30 kcals/kg [id number] total kcals 1.25-2 g protein/kg 76-122 g total protein Fluid per MD, now on HD NUTRITION DIAGNOSIS: * Swallowing difficulty R/T respiratory failure, dysphagia as evidenced by trach/vent dep, PEG dep * Increased kcal/prot needs R/T wound healing as evidenced by admitted w/ multiple pressure injuries including full thickness wounds at junction of Shaft of penis, dorsal scrotum, R elbow, and DTPI @ L buttocks. CURRENT TF:Osmolite 1.2 @ 60ml/hr x 20 hrs + Garo BID ENTERAL NUTRITION RECOMMENDATIONS: Vital AF 1.2 @ 60ml/hr x 20 hrs to provide 1200ml, 1440kcal, 90g prot, 973ml free water * Rec 20 hr run time for GI rest. -> W/ improved GI status, rec Vital AF 1.2, an elemental and carb controlled TF -> monitor lytes and renal fxn closely, monitor need for renal TF -> TF @ goal will provide 1642mg K and 2025mg Phos -> HOB over 30 degrees/ water flush per MD -------- Trial of Osmolite 1.2 continue for now- Goal of 60ml/hr for 20 hrs (4 hrs bowel rest) to provide 1200ml, 1440 kcal, 67g pro, 984ml free H2O, -> Rec to add prosource 1 pack daily (11g pro) to better meet est pro needs. -> Monitor BG, K closely. Pt would require increased insulin coverage as TF at goal would provide 56g more carbs per day. ADDITIONAL RECOMMENDATIONS: * Per SNF: HT=63" VS=419 lbs (vs EMR wt of 166lbs) -> obtain re-calibrated bedscale wt, rec daily wt monitoring * Wound healing: con't Nephrovite + Garo BID/ Vit C dosing per Nephro * Monitor renal fxn and lytes closely w/ non-renal TF ->K low, phos wnl;updated mag level; rec increased insulin w/ BG labs * Daily wts w/ drop to 118-20 lbs, rec to recalibrate for accurate CBW * Consider DC Miralax if medically appropriate: +rectal tube (11) Uremia (12) CKD (chronic kidney disease) stage 5, GFR less than 15 ml/min (13) Colon distention Assessment & Plan: discussed with GI likely functional as having lots of loose bm rectal tube kub f/u s/p colonoscopy - findings reviewed with GI improved cont diet as tolerated Marked distention of the sigmoid colon. 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 No evidence of bowel wall thickening or pneumatosis 12 mm focus of contrast enhancement in the right pectineus muscle. While nonspecific in appearance, appearance raises concern for a possible pseudoaneurysm. Ill- defined thickening of the pectus medius muscle could indicate some intramuscular hemorrhage. The above findings were phoned to Dr. Urias at the time of interpretation Large bilateral pleural effusions Hazy pulmonary parenchymal opacities as well as dense consolidative opacities most likely represent pulmonary edema, but could represent pneumonia Evidence of anasarca elsewhere, with generalized edema of the subcutaneous fat Bladder wall thickening, raises concern for cystitis. Avalos catheter in place Colonic diverticulosis. No evidence of diverticulitis. Tracheostomy Pacemaker Gastrostomy Gastrostomy again demonstrated in satisfactory position. The stomach is otherwise unremarkable. The distal esophagus and duodenum are unremarkable. Ingested contrast reaches the colon. No small bowel distention or small bowel wall thickening. Interim placement of a rectal tube. There are a few colonic diverticula. No definite evidence of acute diverticulitis. The appendix is prominent in caliber, as previously No free or loculated intraperitoneal gas or fluid is evident. Again demonstrated is marked gaseous distention of the sigmoid colon which measures up to 12.6 cm in diameter, with the proximal aspect located laterally to the distal aspect, and caliber transition in the mesenteric root of both entry points. However, there is stool within the proximal portion which appears to be at least partially contrast opacified, and no definite persisting of the vascular pedicle demonstrated. The liver, gallbladder, bile ducts, pancreas, spleen, adrenals, kidneys are unremarkable. There are accessory splenules demonstrated. No retroperitoneal or mesenteric mass or adenopathy. No pelvic mass or adenopathy. The prostate is enlarged and protrudes into the inferior bladder. The bladder is thick-walled. Previously demonstrated Avalos catheter has been removed. Again demonstrated is a large right pleural effusion and a moderate to large left pleural effusion. Again demonstrated are compressive atelectatic changes of significant portions of both lower lobes. Pacemaker wires are seen within the heart. Previously demonstrated high attenuation focus within the right pectineus muscle is not evident. However, there is a low-attenuation area which measures 2 cm diameter centrally which is not evident previously. There is diffuse edema of the subcutaneous fat. This is less severe than was demonstrated previously. There are degenerative proliferative changes of the lumbar spine. Impression: Abnormal configuration of the sigmoid colon, with marked distention of a sigmoid, inversion of the relationships of the proximal and descending colon, and evidence of immediately apposed transition point raises concern for sigmoid volvulus. However, similarity to the prior exam, presence of what appears to be contrast opacified stool within the dilated segment, and lack of evidence of twisting of the vascular pedicle raises the possibility that this is baseline for this patient or possibly dysfunctional in nature. Correlate with clinical findings Enlarged prostate with protrusion into the bladder floor. Bladder neoplasm not completely excludable as a result Thick-walled bladder, may indicate cystitis or be due to chronic bladder lumen obstruction related to the above Abnormalities right pectineus muscle, with a 2 cm central low attenuation area. Note that previous exam have a high attenuation focus suspicious for a small pseudoaneurysm. 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 Colonic diverticulosis. No evidence of diverticulitis Gastrostomy in good position Rectal tube in good position Large right and moderate to large left pleural effusions. Resultant compressive pulmonary atelectatic changes or graft edema subcutaneous fat, less severe than was demonstrated on prior 08/17/2019 exam. Jonathan Urias Oct 29, 2019 13:21
--- NOTE | 2019-10-29 14:41 | Infectious Diseases Prog Note ---
Assessment/Plan Assessment/Plan A: 1. Pneumonia with Morganella & KPC COVID19 X2 : negative 2. ESRD on HD 3. Leukocytosis 4. Respiratory failure, Ventilator dependent 5. Anemia 6. Elevated transaminase 7. 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 Klebsiella catheter infection s/p removal 10. Diarrhea, C. difficile negative 11. Genital wart PLAN: 1. Continue Cefepime & Acyclovir 2. will f/u cultures Subjective ROS Limited/Unobtainable: Yes Constitutional: Denies: fever Allergies: Coded Allergies: No Known Allergies (Unverified , 06/10/19) Objective Last 24 Hour Vital Signs Date Time Temp Pulse Resp B/P (MAP) Pulse Ox O2 Delivery O2 Flow Rate FiO2 10/29/19 12:00 Mechanical Ventilator 10/29/19 12:00 97.2 83 16 110/58 (75) 100 10/29/19 12:00 24 10/29/19 12:00 84 10/29/19 11:14 84 12 24 10/29/19 08:11 88 107/58 10/29/19 08:11 107/58 10/29/19 08:00 97.7 88 12 107/58 (74) 100 10/29/19 08:00 87 10/29/19 08:00 Mechanical Ventilator 10/29/19 08:00 24 10/29/19 07:00 88 14 24 10/29/19 04:00 Mechanical Ventilator 10/29/19 04:00 98.2 92 19 110/56 (74) 100 10/29/19 04:00 24 10/29/19 03:34 93 10/29/19 03:34 98.3 92 19 110/56 (74) 100 10/29/19 02:59 8 16 24 10/29/19 00:00 Mechanical Ventilator 10/29/19 00:00 98.3 108 19 109/54 (72) 100 10/28/19 23:40 108 10/28/19 22:56 106 17 24 10/28/19 20:03 106 111/53 10/28/19 20:00 98.4 106 19 111/53 (72) 100 10/28/19 20:00 24 10/28/19 20:00 Mechanical Ventilator 10/28/19 19:32 99 10/28/19 18:59 99 17 24 10/28/19 16:00 77 10/28/19 16:00 24 10/28/19 16:00 97.8 106 19 112/68 (83) 100 10/28/19 16:00 Mechanical Ventilator 10/28/19 15:10 77 22 24 Height (Feet): 5 Height (Inches): 10.00 Weight (Pounds): 123 General Appearance: no acute distress HEENT: status post trach Respiratory/Chest: decreased breath sounds, other - on ventilator Cardiovascular: normal rate Abdomen: soft, non tender, other - GT & rectal tube Extremities: other - edemaof left hand Neurologic/Psychiatric: aphasia Laboratory Tests Test 10/28/19 23:10 10/29/19 05:24 10/29/19 06:50 10/29/19 11:19 POC Whole Blood Glucose 240 MG/DL (74-106) H 204 MG/DL (74-106) H 142 MG/DL (74-106) H White Blood Count 19.2 K/UL (4.8-10.8) H Red Blood Count 3.87 M/UL (4.70-6.10) L Hemoglobin 9.0 G/DL (14.2-18.0) L Hematocrit 29.0 % (42.0-52.0) L Mean Corpuscular Volume 75 FL (80-99) L Mean Corpuscular Hemoglobin 23.2 PG (27.0-31.0) L Mean Corpuscular Hemoglobin Concent 31.0 G/DL (32.0-36.0) L Red Cell Distribution Width 16.7 % (11.6-14.8) H Platelet Count 561 K/UL (150-450) H Mean Platelet Volume 5.6 FL (6.5-10.1) L Neutrophils (%) (Auto) % (45.0-75.0) Lymphocytes (%) (Auto) % (20.0-45.0) Monocytes (%) (Auto) % (1.0-10.0) Eosinophils (%) (Auto) % (0.0-3.0) Basophils (%) (Auto) % (0.0-2.0) Differential Total Cells Counted 100 Neutrophils % (Manual) 79 % (45-75) H Lymphocytes % (Manual) 13 % (20-45) L Monocytes % (Manual) 6 % (1-10) Eosinophils % (Manual) 2 % (0-3) Basophils % (Manual) 0 % (0-2) Band Neutrophils 0 % (0-8) Platelet Estimate Increased H Platelet Morphology Normal Hypochromasia 1+ Anisocytosis 1+ Microcytosis 1+ Sodium Level 134 MMOL/L (136-145) L Potassium Level 3.4 MMOL/L (3.5-5.1) L Chloride Level 98 MMOL/L (98-107) Carbon Dioxide Level 26 MMOL/L (21-32) Anion Gap 10 mmol/L (5-15) Blood Urea Nitrogen 56 mg/dL (7-18) H Creatinine 3.2 MG/DL (0.55-1.30) H Estimat Glomerular Filtration Rate 18.9 mL/min (>60) Glucose Level 193 MG/DL (74-106) H Calcium Level 8.8 MG/DL (8.5-10.1) Current Medications Medications (Trade) Dose Ordered Sig/Leonel Route PRN Reason Start Time Stop Time Status Last Admin Dose Admin Acetaminophen (Tylenol) 650 mg Q6H PRN GT Temp >100.5 10/21/19 20:45 11/20/19 20:44 10/24/19 10:25 Acyclovir (Zovirax) 400 mg Q12HR ORAL 10/23/19 13:00 11/22/19 12:59 10/29/19 08:08 Cefepime HCl 1 gm/ Dextrose 55 ml @ 110 mls/hr Q24H IVPB 10/27/19 12:00 11/03/19 11:59 10/29/19 12:13 Chlorhexidine Gluconate (Felipa-Hex 2%) 1 applic DAILY@2000 TOPIC 09/12/19 20:00 12/11/19 19:59 10/28/19 20:02 Clonidine HCl (Catapres Tab) 0.1 mg Q4H PRN GT For High Blood Pressure 09/09/19 12:30 12/08/19 05:29 09/15/19 04:10 Dextrose (Dextrose 50%) 25 ml Q30M PRN IV Hypoglycemia 08/09/19 07:30 11/07/19 07:29 Dextrose (Dextrose 50%) 50 ml Q30M PRN IV Hypoglycemia 08/09/19 07:30 11/07/19 07:29 Enoxaparin Sodium (Lovenox) 30 mg DAILY SUBQ 10/24/19 09:00 01/22/20 08:59 10/29/19 08:10 Epoetin Andreas (Epoetin Andreas(ESRD on dialysis)) 8,000 unit WED-WED-WED SUBQ 10/25/19 21:00 01/23/20 20:59 10/27/19 21:06 Famotidine (Pepcid) 20 mg DAILY GT 08/30/19 09:00 11/28/19 08:59 10/29/19 08:08 Insulin Aspart (NovoLOG) Q6HR SUBQ 09/25/19 18:00 11/07/19 11:29 10/29/19 12:15 Lactobacillus Acidophilus (Culturelle) 1 tab EVERY 12 HOURS GT 10/03/19 21:00 12/13/19 17:59 10/29/19 08:08 Loperamide HCl (Imodium) 2 mg Q6H PRN NG Diarrhea 10/15/19 07:45 11/14/19 07:44 Metoprolol Tartrate (Lopressor) 200 mg Q12HR GT 08/09/19 09:00 11/07/19 08:59 10/27/19 08:37 Minoxidil (Loniten) 5 mg DAILY GT 08/09/19 09:00 11/07/19 08:59 10/28/19 09:55 Sodium Chloride 500 ml @ 999 mls/hr Q31M PRN IV sbp<90 10/28/19 21:30 11/27/19 21:29 Zinc Oxide (Zinc Oxide) 1 applic EVERY 12 HOURS TOPIC 10/03/19 09:00 11/08/19 17:59 10/29/19 08:08 Real De Leon MD Oct 29, 2019 14:41
--- NOTE | 2019-10-29 18:55 | NUR ---
RESPIRATORY NOTE: Received pt on AC VC 12, 550VT, 24%, PEEP +5. Pt is trach-dependent w/ a cuffed, Portex 8 tube. Pt asleep/obtunded. B/S ovi. rhonchi, sxn small to moderate amounts of thick/thin, pale-yellow secretions. Vent plugged into red outlet, ambubag at bedside. Pt resting comfortably, in no apparent distress at this time. Will continue plan of care.
--- NOTE | 2019-10-29 19:15 | NUR ---
NURSE NOTES: RECEIVED REPORT FROM TAMICA WOOD. PATIENT ASLEEP IN BED, APPEARS OBTUNDED, RESPONSIVE TO TACTILE STIMULI ONLY. NO S/SX OF PAIN OR DISCOMFORT AT THIS TIME. BREATHING EVEN AND UNLABORED ON TRACH TO VENT WITH CURRENT SETTINGS OF AC 12, VT550, FIO2 24%, PEEP 5- NO S/SX OF DISTRESS NOTED. GTF RUNNING PRESCRIBED WITH NEPHRO @ 45ML/HR. RECTAL TUBE DRAINING WELL TO GRAVITY, STOOL APPEARS LIQUID IN CONSISTENCY. IV SITES ON LEFT WRIST 22G, LFA 20 G PATENT, INTACT, ASYMPTOMATIC. BED LOCKED AND IN LOWEST POSITION, SIDERAILS UP X 3. FALL AND ASPIRATION PRECAUTIONS IMPLEMENTED. CONTACT ISOLATION IN PLACE. CALL LIGHT WITHIN REACH. WILL CONTINUE TO MONITOR PER POC.
--- NOTE | 2019-10-29 19:25 | NUR ---
NURSE HAND-OFF REPORT: Important Events on Shift: NA Patient Status: STABLE Diet: NEPHRO @ 45 ML/H Pending Orders: NA Pending Results/Labs: NA Pending MD notification:NA Latest Vital Signs: Temperature 97.3 , Pulse 79 , B/P 117 /63 , Respiratory Rate 14 , O2 SAT 100 , Mechanical Ventilator, O2 Flow Rate 15.0 . Vital Sign Comment: STABLE EKG Rhythm: V-Paced Rhythm change?: N MD Notified?: N - MD Response: Latest Delacruz Fall Score: 70 Fall Risk: High Risk Safety Measures: Call light Within Reach, Bed Alarm Zone 2, Side Rails Side Rails x3, Bed position Low and Locked. Fall Precautions: Yellow Socks Yellow Gown Patient Fall Education Report given to TAMICA Guerrier.
[2019-10-29] MEDS: Dyna-Hex 2% Top Sol 2oz TOPIC SCH (20:17)
[2019-10-30] VITALS: BP 145/61
[2019-10-30] MEDS: NovoLOG Insulin Flexpen SUBQ SCH ×5 (00:39→23:47)
[2019-10-30 04:00] VITALS: BP 158/83
--- NOTE | 2019-10-30 04:00 | NUR ---
NURSE NOTES: PATIENT GIVEN SPONGE BATH, LINEN CHANGED. PATIENT TOLERATED WELL WITH NO S/SX OF DISTRESS.
--- NOTE | 2019-10-30 07:20 | NUR ---
NURSE HAND-OFF REPORT: Important Events on Shift: NO SIGNIFICANT CHANGES Patient Status: STABLE Diet: GTF NEPRO @ 45 ML/HR X 20 HOURS, (OFF [id number]) Pending Orders: N/A Pending Results/Labs: N/A Pending MD notification: N/A Latest Vital Signs: Temperature 98.0 , Pulse 99 , B/P 158 /83 , Respiratory Rate 20 , O2 SAT 100 , Mechanical Ventilator, O2 Flow Rate 15.0 . Vital Sign Comment: STABLE EKG Rhythm: V-Paced Rhythm change?: N MD Notified?: N - MD Response: Latest Delacruz Fall Score: 70 Fall Risk: High Risk Safety Measures: Call light Within Reach, Bed Alarm Zone 2, Side Rails Side Rails x3, Bed position Low and Locked. Fall Precautions: Yellow Socks Yellow Gown Patient Fall Education Report given to TAMICA WOOD.
--- NOTE | 2019-10-30 07:44 | NUR ---
NURSE NOTES: Received report from TAMICA Guerrier. Patient in bed resting, no active s/s cardiac, respiratory distress noticed at this time. Patient obtunded, open eyes spontaneously and when suctioned. IV on left FA 20G, right FA 20G, asymptomatic, patent, intact. Right subclavian PermaCath intact and patent. Trach to vent Portex 8 AC 12 Fio2 24% PEEP 5 TV 550. Bed in lowest position, side rails upsx3, call light within reach, bed alarm on, Will continue to monitor. Addendum: 10/30/19 at 0748 by NINA LOONEY RN GT feeding on hole per order, Nephro @ 45, GT site patent, intact. Endorsed decrease in bowel movement via rectal tube, will continue to monitor and will inform MD.
[2019-10-30 08:00] VITALS: BP 140/63
[2019-10-30] MEDS: Lactobacillus-GG tablet GT SCH ×2 (08:11→21:16)
[2019-10-30] MEDS: Acyclovir 200mg Cap ORAL SCH ×2 (08:12→21:16)
[2019-10-30] MEDS: Metoprolol Tartrate 100mg tab GT SCH ×2 (08:12→21:00)
--- NOTE | 2019-10-30 08:12 | General Progress Note ---
Subjective Allergies: Coded Allergies: No Known Allergies (Unverified , 06/10/19) Subjective remains ill on vent/ no change on HD vitals noted= transient hypotension Objective Last 24 Hour Vital Signs Date Time Temp Pulse Resp B/P (MAP) Pulse Ox O2 Delivery O2 Flow Rate FiO2 10/30/19 08:00 97.7 100 15 140/63 (88) 100 10/30/19 04:00 24 10/30/19 04:00 Mechanical Ventilator 10/30/19 04:00 98.0 99 20 158/83 (108) 100 10/30/19 04:00 94 10/30/19 03:13 92 16 24 10/30/19 00:00 Mechanical Ventilator 10/30/19 00:00 97.5 72 16 145/61 (89) 100 10/29/19 23:15 69 13 24 10/29/19 21:00 24 10/29/19 20:25 78 10/29/19 20:20 83 133/60 10/29/19 20:00 97.9 83 17 130/65 (86) 100 10/29/19 20:00 Mechanical Ventilator 10/29/19 18:52 79 14 24 10/29/19 16:00 97.3 81 18 117/63 (81) 100 10/29/19 16:00 Mechanical Ventilator 10/29/19 16:00 74 10/29/19 16:00 24 10/29/19 14:50 74 13 24 10/29/19 12:00 Mechanical Ventilator 10/29/19 12:00 97.2 83 16 110/58 (75) 100 10/29/19 12:00 24 10/29/19 12:00 84 10/29/19 11:14 84 12 24 Intake and Output 10/29/19 10/30/19 19:00 07:00 Intake Total 790 ml 510 ml Output Total 10 ml 10 ml Balance 780 ml 500 ml Free Water 60 ml 60 ml IV Total 55 ml Tube Feeding 675 ml 450 ml Stool Total 10 ml 10 ml Laboratory Tests 10/29/19 11:19: POC Whole Blood Glucose 142H 10/29/19 16:39: POC Whole Blood Glucose 178H 10/29/19 23:37: POC Whole Blood Glucose 188H 10/30/19 05:16: POC Whole Blood Glucose 181H Height (Feet): 5 Height (Inches): 10.00 Weight (Pounds): 123 Objective GENERAL: Ill-appearing male, chronically debilitated. HEENT: Tracheostomy in midline. Questionable fullness in the submandibular region. LUNGS: Coarse breath sounds. reduced breath sounds CARDIAC: S1, S2. Regular rate and rhythm. borderline tachy ABDOMEN: Soft. G-tube. EXTREMITIES: With noted edema. NEUROLOGICAL: Poorly responsive, weak diffusely. Assessment/Plan Assessment/Plan: IMPRESSION: 1. anemia. 2. fevers improved 3. Leukocytosis. 4. hypotension 5. Acute on chronic renal failure. 6. Hyponatremia. 7. Severe protein-calorie malnutrition. 8. Significantly elevated C-reactive protein concerning for infectious etiology. 9. Tracheostomy, G-tube. 10. Ventilator dependence. 11. anasarca 12. Hematuria 13. V pacing 14. hyponatremia 15. transaminitis, HIDA negative PLAN chronic care; unable to place care noted- bolus prn on vent/ no wean monitor labs and optimize ID follow up - wbc now worse dialysis ongoing- adjust lytes prognosis poor for recovery impression, plan, and exam edited and reviewed in detail care discussed with Kain Tovar MD Oct 30, 2019 08:12
[2019-10-30] MEDS: Minoxidil 2.5mg tab GT SCH (08:13)
[2019-10-30] MEDS: Enoxaparin 30mg Inj SUBQ SCH (08:14)
[2019-10-30] MEDS: Zinc Oxide Oint 2oz TOPIC SCH ×2 (08:15→21:17)
--- NOTE | 2019-10-30 08:57 | Surgery Progress Note ---
Surgery Progress Note Subjective Procedure Performed Right femoral temporary hemodialysis catheter removal Additional Comments afebrile HD Stable persistent leukocytosis no n/v abd exam benign ext stable on mattress tolerating tf rectal tube Objective Last 24 Hour Vital Signs Date Time Temp Pulse Resp B/P (MAP) Pulse Ox O2 Delivery O2 Flow Rate FiO2 10/30/19 08:12 100 140/63 10/30/19 08:00 97.7 100 15 140/63 (88) 100 10/30/19 04:00 24 10/30/19 04:00 Mechanical Ventilator 10/30/19 04:00 98.0 99 20 158/83 (108) 100 10/30/19 04:00 94 10/30/19 03:13 92 16 24 10/30/19 00:00 Mechanical Ventilator 10/30/19 00:00 97.5 72 16 145/61 (89) 100 10/29/19 23:15 69 13 24 10/29/19 21:00 24 10/29/19 20:25 78 10/29/19 20:20 83 133/60 10/29/19 20:00 97.9 83 17 130/65 (86) 100 10/29/19 20:00 Mechanical Ventilator 10/29/19 18:52 79 14 24 10/29/19 16:00 97.3 81 18 117/63 (81) 100 10/29/19 16:00 Mechanical Ventilator 10/29/19 16:00 74 10/29/19 16:00 24 10/29/19 14:50 74 13 24 10/29/19 12:00 Mechanical Ventilator 10/29/19 12:00 97.2 83 16 110/58 (75) 100 10/29/19 12:00 24 10/29/19 12:00 84 10/29/19 11:14 84 12 24 I&O Intake and Output 10/29/19 10/30/19 19:00 07:00 Intake Total 790 ml 510 ml Output Total 10 ml 10 ml Balance 780 ml 500 ml Free Water 60 ml 60 ml IV Total 55 ml Tube Feeding 675 ml 450 ml Stool Total 10 ml 10 ml Dressing: dry Wound: other Cardiovascular: RSR Respiratory: decreased breath sounds Abdomen: soft, non-tender, present bowel sounds Extremities: no edema, no tenderness, no cyanosis, other Laboratory Tests Test 10/29/19 11:19 10/29/19 16:39 9/20/20 23:37 10/30/19 05:16 POC Whole Blood Glucose 142 MG/DL (74-106) H 178 MG/DL (74-106) H 188 MG/DL (74-106) H 181 MG/DL (74-106) H Plan Problems: (1) Anemia (2) Hyponatremia (3) Leukocytosis Assessment & Plan: Tracheostomy, left chest pacemaker are again demonstrated. There is bilateral interstitial and airspace disease and bilateral pleural fluid again demonstrated. This appears more severe than on the prior study. Bilateral interstitial and airspace infiltrates versus edema. Bilateral pleural effusions Leukocytosis, anemia, tachycardia, abnormal labs. Wound evaluated and likely etiology of patient's sepsis. Leukocytosis etiology work-up antibiotics per infectious disease Appreciate nephrology input transfuse with dialysis We will follow with recommendations thank you allowing participation's care plan HD access temp HD discussed with medical teams line okay HD as per renal persistent leukocytosis flow cyto noted improving trending down right fem line removed wbc fluctuating h/h stable lft's elevated There is a right pleural effusion Gallbladder demonstrates tiny wall adherent nonmobile echogenic foci, some possible mural calcifications, and comet tail artifact in the anterior wall. Patient unable to report sonographic Kent's sign. Common bile duct measures 4 mm in diameter. No intrahepatic biliary ductal dilatation. Liver demonstrates normal echogenicity, no focal abnormality. There is some surface nodularity. Portal vein and hepatic veins are patent. Pancreas is incompletely visualized due to overlying bowel gas, visualized portions are unremarkable. Spleen is unremarkable. Left kidney measures 8.7 cm in length. Right kidney measures 8.9 cm length. Both kidneys demonstrate increased echogenicity. There is no hydronephrosis. No focal abnormality . Abdominal aorta is partially obscured by bowel gas, visualized portions are non-aneurysmal . A gastrostomy is noted Impression: Tiny wall adherent nonmobile gallbladder echogenic foci, may reflect wall adherent calculi, small polyps, and/or pleural calcifications. Anterior wall comet tail artifact suggests foci of adenomyomatosis. Normal caliber common bile duct Possible hepatic surface nodularity, could indicate cirrhotic change Echogenic kidneys, consistent with medical renal disease. No hydronephrosis Right pleural effusion Gastrostomy Note nonvisualization of portions of the pancreas and abdominal aorta HIDA NEGATIVE trend labs (4) Ventilator dependent (5) Right lower lobe pneumonia (6) Hypokalemia (7) Hyperkalemia (8) Anasarca (9) Decubitus skin ulcer Assessment & Plan: pt presented on admission with generalized edemae.Skin assessed under tracheostomy and no areas of concerns noted. GT Insertion is marginally erythematous with small amt slough at stoma. Unstageable Pressure Injury R elbow. Base of wound is 100% yellow slough,Borders are erythematous. Wound oozing small amt haemopurulent exudate.Darker skin tone without elevation in skin temp or erythema periwound. Pt's penis and scrotum are grossly edematous and enlarged and weeping serous exudate from numerous sites both from penis and scrotum. Two small open wounds noted at base of at base of shaft of penis ,and contreras aspect of scrotum. Both wounds oozing large amt sanguineous and serosanguineous exudate. Multiple open wounds with Biofilm at base of each wounds noted to contreras/lateral,inferior and posterior aspects of scrotum. These wounds noted to be oozing moderate amts of serosanguineous exudate. Hypertrophic scar with scattered areas of hyp erpigmentation noted to Sacrum. DTPI noted to L Buttocks (L)7cm x (W)9cm. Base of wound is purple and indurated.Darker skin tone without erythema,induration or fluctuance R and L ischial tuberosities. Both heels are boggy with non-blanchable erythema. potential decline given chronic illness Tx.Plan: Cleanse wound R elbow with Saline. Apply TheraHoney, Apply Moisture Barrier Past e periwound. Cover with Optifoam drsg.Change Daily and prn. Wash GT site with soap and water.Pat dry. Apply Zinc Oxide Paste to GT site Daily. Leave Open to Air. Apply Zinc Oxide Paste to entire Scrotum, Place ABD pads to R and L lateral, and posterior aspects of scrotum TWICE daily. Apply Cavilon Skin Barrier to malleoli and both Heels. Cover each site with Optifoam drsgs. Change every 7 days and prn. Reposition at least every 2hours or as tolerated. Off-load heels with Pillows. APM/BECCA Mattress overlay. (10) Malnutrition Assessment & Plan: DAILY ESTIMATED NEEDS: Needs based on Renal, critical care, wound/ 61kg 22-30 kcals/kg [id number] total kcals 1.25-2 g protein/kg 76-122 g total protein Fluid per MD, now on HD NUTRITION DIAGNOSIS: * Swallowing difficulty R/T respiratory failure, dysphagia as evidenced by trach/vent dep, PEG dep * Increased kcal/prot needs R/T wound healing as evidenced by admitted w/ multiple pressure injuries including full thickness wounds at junction of Shaft of penis, dorsal scrotum, R elbow, and DTPI @ L buttocks. CURRENT TF:Osmolite 1.2 @ 60ml/hr x 20 hrs + Garo BID ENTERAL NUTRITION RECOMMENDATIONS: Vital AF 1.2 @ 60ml/hr x 20 hrs to provide 1200ml, 1440kcal, 90g prot, 973ml free water * Rec 20 hr run time for GI rest. -> W/ improved GI status, rec Vital AF 1.2, an elemental and carb controlled TF -> monitor lytes and renal fxn closely, monitor need for renal TF -> TF @ goal will provide 1642mg K and 2025mg Phos -> HOB over 30 degrees/ water flush per MD -------- Trial of Osmolite 1.2 continue for now- Goal of 60ml/hr for 20 hrs (4 hrs bowel rest) to provide 1200ml, 1440 kcal, 67g pro, 984ml free H2O, -> Rec to add prosource 1 pack daily (11g pro) to better meet est pro needs. -> Monitor BG, K closely. Pt would require increased insulin coverage as TF at goal would provide 56g more carbs per day. ADDITIONAL RECOMMENDATIONS: * Per SNF: HT=63" CM=088 lbs (vs EMR wt of 166lbs) -> obtain re-calibrated bedscale wt, rec daily wt monitoring * Wound healing: con't Nephrovite + Garo BID/ Vit C dosing per Nephro * Monitor renal fxn and lytes closely w/ non-renal TF ->K low, phos wnl;updated mag level; rec increased insulin w/ BG labs * Daily wts w/ drop to 118-20 lbs, rec to recalibrate for accurate CBW * Consider DC Miralax if medically appropriate: +rectal tube (11) Uremia (12) CKD (chronic kidney disease) stage 5, GFR less than 15 ml/min (13) Colon distention Assessment & Plan: discussed with GI likely functional as having lots of loose bm rectal tube kub f/u s/p colonoscopy - findings reviewed with GI improved cont diet as tolerated repeat KUB Marked distention of the sigmoid colon. 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 No evidence of bowel wall thickening or pneumatosis 12 mm focus of contrast enhancement in the right pectineus muscle. While nonspecific in appearance, appearance raises concern for a possible pseudoaneurysm. Ill- defined thickening of the pectus medius muscle could indicate some intramuscular hemorrhage. The above findings were phoned to Dr. Urias at the time of interpretation Large bilateral pleural effusions Hazy pulmonary parenchymal opacities as well as dense consolidative opacities most likely represent pulmonary edema, but could represent pneumonia Evidence of anasarca elsewhere, with generalized edema of the subcutaneous fat Bladder wall thickening, raises concern for cystitis. Avalos catheter in place Colonic diverticulosis. No evidence of diverticulitis. Tracheostomy Pacemaker Gastrostomy Gastrostomy again demonstrated in satisfactory position. The stomach is otherwise unremarkable. The distal esophagus and duodenum are unremarkable. Ingested contrast reaches the colon. No small bowel distention or small bowel wall thickening. Interim placement of a rectal tube. There are a few colonic diverticula. No definite evidence of acute diverticulitis. The appendix is prominent in caliber, as previously No free or loculated intraperitoneal gas or fluid is evident. Again demonstrated is marked gaseous distention of the sigmoid colon which measures up to 12.6 cm in diameter, with the proximal aspect located laterally to the distal aspect, and caliber transition in the mesenteric root of both entry points. However, there is stool within the proximal portion which appears to be at least partially contrast opacified, and no definite persisting of the vascular pedicle demonstrated. The liver, gallbladder, bile ducts, pancreas, spleen, adrenals, kidneys are unremarkable. There are accessory splenules demonstrated. No retroperitoneal or mesenteric mass or adenopathy. No pelvic mass or adenopathy. The prostate is enlarged and protrudes into the inferior bladder. The bladder is thick-walled. Previously demonstrated Avalos catheter has been removed. Again demonstrated is a large right pleural effusion and a moderate to large left pleural effusion. Again demonstrated are compressive atelectatic changes of significant portions of both lower lobes. Pacemaker wires are seen within the heart. Previously demonstrated high attenuation focus within the right pectineus muscle is not evident. However, there is a low-attenuation area which measures 2 cm diameter centrally which is not evident previously. There is diffuse edema of the subcutaneous fat. This is less severe than was demonstrated previously. There are degenerative proliferative changes of the lumbar spine. Impression: Abnormal configuration of the sigmoid colon, with marked distention of a sigmoid, inversion of the relationships of the proximal and descending colon, and evidence of immediately apposed transition point raises concern for sigmoid volvulus. However, similarity to the prior exam, presence of what appears to be contrast opacified stool within the dilated segment, and lack of evidence of twisting of the vascular pedicle raises the possibility that this is baseline for this patient or possibly dysfunctional in nature. Correlate with clinical findings Enlarged prostate with protrusion into the bladder floor. Bladder neoplasm not completely excludable as a result Thick-walled bladder, may indicate cystitis or be due to chronic bladder lumen obstruction related to the above Abnormalities right pectineus muscle, with a 2 cm central low attenuation area. Note that previous exam have a high attenuation focus suspicious for a small pseudoaneurysm. 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 Colonic diverticulosis. No evidence of diverticulitis Gastrostomy in good position Rectal tube in good position Large right and moderate to large left pleural effusions. Resultant compressive pulmonary atelectatic changes or graft edema subcutaneous fat, less severe than was demonstrated on prior 08/17/2019 exam. Jonathan Urias Oct 30, 2019 08:57
--- NOTE | 2019-10-30 09:36 | Hematology/Onc Progress Note ---
Assessment/Plan Assessment/Plan Assessment/recs # Anemia due to chronic disease/kidney disease as well, gi bleed + occult + noted --> was on iron in the past, now on hold --> has been started on Epogen sq --> as per renal care --> egd done and shows gastritis --> on ppi --> egd showed gastritis, colo recently done --> hgb 9-->8. 7-->7.6-->9.2-->8.9-->9.2->9.3-->8.8->9.9-->9.2-->8.1-->8.7-->7.9-->8.6-->8.9--> 8.2->9-->9.3->8.9-->9.5-->10.6->9.2-->10->8.9--> 8.3-->8.9-->9.9-->9.3-->9-->9.3->11-->8.6->8.7>9 --> spep ordered->wnl # Leukocytosis - with multiple infections, VRE UTI, flow is negative --> wbc trend 33-->28-->25->23->22->23->24->17.3-->17-->14->16-->15.6-->14-->14->13->19->18->1 7 ->22->22->19->17-->18->20-->15-->14->16-->14-->17->18-->17->15-->16-->17->28->19 --> on abx, linezolid and zosyn--> zosyn-->gent-->off-->vanc/zosyn --> + blood cultures with coag neg staph likely contaminated --> as per id recs --> has ordered a flow cytometry (with pathology) --> does show increased nK cell activity --> JOURDAN 2 and bcr-abl labs ordered (these are send outs)->negative --> plt 585-->613-->649-->669->663-->529-->506-->620-->720 # Elevated ddimer on admission --> duplex lower legs neg for dvt # Respiratory failure --> per pulm, s/p trach --> COVID 19 test negative x 2 # Hyperlipidemia --> statin po # Dysphagia s/p gtube with nepro --> per gi # ESRD with r fem julito --> hd as per renal # Dvt ppx lovenox sq Appreciate consultation and matt Rn Subjective Allergies: Coded Allergies: No Known Allergies (Unverified , 06/10/19) All Systems: reviewed and negative except above Subjective 08/15 meds noted, no bleeding, hgb 8.8, wbc 28, path flow pending 08/16 flow pending dw pathologist, results pending, wbc 25, hgb 9 08/17 labs reviewed, meds reviewed, meds noted, no night sweats 08/19 remains obtunded, on vent/trach, no bleeding wbc 21.7 08/20 labs have been reviewed, no bleeding, wbc still elev, path reviewed 08/21 labs are noted, no bleeding, on vent, wbc better 08/22 labs noted, no bleeding, meds reviewed, wbc 24 hgb 7.6 08/23 vent, off abx, c diff negative, h/h stable 08/24 labs reviewed, on abx, wbc 17, hgb 8.9, no hemolysis 08/26 reviewed flow and is negative for leukemia, matt rn 08/27 meds reviewed, no night sweats, matt rn, no major bleeding 08/28 meds reivewed, labs noted 08/29 wbc is stable, approx 15, hgb 8.8, no hemolysis 08/30 labs are noted, is for colo today, hgb 9.9 08/31 right fem julito in place, unchanged, hgb 9.2, gi aware 09/01 labs noted, hgb 8.8, plt >600, no bleeding 09/02 labs noted, no bleeding, with elev wbc still, no new changes 09/03 meds are noted, no bleeding, labs reviewed hgb 8.6 09/04 no major events, hd as per renal, abx, no bleeding hgb low 09/05 labs are noted, no bleeding, meds have been reviewed 09/06 no new labs no hemolysis, cbc is noted, no bleeding 09/07 meds reviewed, no bleeding, matt rn, permacath functioning well 09/09 meds reviewed, wbc still elevated, as per id recs, cbc noted 09/10 is obtunded, with gutbe in place, labs reviewed 09/11 obtunded, as per id, observe now off abx, labs noted, wbc 19 09/12 cbc is pending, remains on epogen, also off abx 09/13 labs reviewed, no bleeding, elev wbc, no night sweats 09/14 meds noted, no bleeding, wbc 19, hgb 9.5, no night sweats 09/21 obtunded, remains on vent, labs noted, no bleeding, hgb 8.9 09/22 obtunded, labs noted, no bleeding, on vent, unchanged 09/23 unchanges, wbc remains elevated 20k, on abx, on vent 09/24 labs have been reviewed, no bleeding, wbc 15, may need abx 09/25 formula gtube changed, labs noted, remains obtunded, hgb 9.3 09/26 labs have been reviewed, no bleeding, matt rn, no night sweats 09/27 meds reviewed, no bleeding, wbc 14, on abx, remains obtunded 09/28 remains obtunded, no bleeding, wbc better, hgb 8.9, no hemolysis, plt 506 09/30 on colisitn, wbc elevated, cefepime added per id, hgb stable 10/01 labs reviewed, no bleeding, matt rn, no major events noted, wbc 14, hgb 10.6 10/02 labs have been noted, hgb 9.2, wbc 17, on abx, matt wright 10/03 continue on tube feeds, no bleeding, on vent, wbc remains elevated 10/04 remains ibtunded, is on a mechanical ventilator with tube feeds noted 10/05 labs are noted, hgb 8.6, wbc remains elevated, have ordered for spep 10/07 obtunded on vent, with gtube feeds, labs reviewed, matt wright 10/08 labs are noted, on vent/trach, hgb 10.2, remains obtunded 10/09 labns noted, wbc 15, hgb 8.9, remains altered, on tfs 10/10 labs noted, holding tube feeds, matt rn, hg stable 8.3 currently 10/11 remains on tfs, supportive care, labs noted, no bleeding 10/12 remains obtunded, hgb 8.9, no hemolysis is seen 10/14 labs reviewed, no bleeding, pending potential hd if rn available 10/15 is on vent, with gtube, labs reviewed, no bleeding, to get hd soon 10/16 remains on vent, matt rn at bedside, wbc 15, abx prn, plt also higher, will monitor 10/17 on vent, continue on tube feeds via gtube, labs improved 10/18 labs noted, remains on vent, and tube feeds, no major changes 10/19 nad, no bleeding, labs reviewed, no night sweats, bp elevated, cards aware 10/21 labs pending, with gtube running, on mec vent, abx off 10/22 labs reviewed, no major changes, wbc 18, plt 791k, on gtube feeds 10/23 labs reviewed, meds noted, on epogen and lovenox sq, obtunded, is nv 9.16 labs are noted, wbc 28, hgb 8.6, no hemolysis is noted 10/27 labs reviewed, on mech vent, on gtube feeds, no bleeding wbc 21 10/28 labs noted, wbc 19, plt remains elevated, hd as per renal Dr. Frank 10/29 obtunded, gt feedings on hold, wbc 19, hgb 9, no bleeding Objective Objective Current Medications Medications (Trade) Dose Ordered Sig/Leonel Route PRN Reason Start Time Stop Time Status Last Admin Dose Admin Acetaminophen (Tylenol) 650 mg Q6H PRN GT Temp >100.5 10/21/19 20:45 11/20/19 20:44 10/24/19 10:25 Acyclovir (Zovirax) 400 mg Q12HR ORAL 10/23/19 13:00 11/22/19 12:59 10/30/19 08:12 Cefepime HCl 1 gm/ Dextrose 55 ml @ 110 mls/hr Q24H IVPB 10/27/19 12:00 11/03/19 11:59 10/29/19 12:13 Chlorhexidine Gluconate (Felipa-Hex 2%) 1 applic DAILY@2000 TOPIC 09/12/19 20:00 12/11/19 19:59 10/29/19 20:17 Clonidine HCl (Catapres Tab) 0.1 mg Q4H PRN GT For High Blood Pressure 09/09/19 12:30 12/08/19 05:29 09/15/19 04:10 Dextrose (Dextrose 50%) 25 ml Q30M PRN IV Hypoglycemia 08/09/19 07:30 11/07/19 07:29 Dextrose (Dextrose 50%) 50 ml Q30M PRN IV Hypoglycemia 08/09/19 07:30 11/07/19 07:29 Enoxaparin Sodium (Lovenox) 30 mg DAILY SUBQ 10/24/19 09:00 01/22/20 08:59 10/30/19 08:14 Epoetin Andreas (Epoetin Andreas(ESRD on dialysis)) 8,000 unit WED- SUBQ 10/25/19 21:00 01/23/20 20:59 10/27/19 21:06 Famotidine (Pepcid) 20 mg DAILY GT 08/30/19 09:00 11/28/19 08:59 10/30/19 08:12 Insulin Aspart (NovoLOG) Q6HR SUBQ 09/25/19 18:00 11/07/19 11:29 10/30/19 05:28 Lactobacillus Acidophilus (Culturelle) 1 tab EVERY 12 HOURS GT 10/03/19 21:00 12/13/19 17:59 10/30/19 08:11 Loperamide HCl (Imodium) 2 mg Q6H PRN NG Diarrhea 10/15/19 07:45 11/14/19 07:44 Metoprolol Tartrate (Lopressor) 200 mg Q12HR GT 08/09/19 09:00 11/07/19 08:59 10/30/19 08:12 Minoxidil (Loniten) 5 mg DAILY GT 08/09/19 09:00 11/07/19 08:59 10/28/19 09:55 Sodium Chloride 500 ml @ 999 mls/hr Q31M PRN IV sbp<90 10/28/19 21:30 11/27/19 21:29 Zinc Oxide (Zinc Oxide) 1 applic EVERY 12 HOURS TOPIC 10/03/19 09:00 11/08/19 17:59 10/30/19 08:15 Last 24 Hour Vital Signs Date Time Temp Pulse Resp B/P (MAP) Pulse Ox O2 Delivery O2 Flow Rate FiO2 10/30/19 08:12 100 140/63 10/30/19 08:00 97.7 100 15 140/63 (88) 100 10/30/19 07:30 98 14 24 10/30/19 04:00 24 10/30/19 04:00 Mechanical Ventilator 10/30/19 04:00 98.0 99 20 158/83 (108) 100 10/30/19 04:00 94 10/30/19 03:13 92 16 24 10/30/19 00:00 Mechanical Ventilator 10/30/19 00:00 97.5 72 16 145/61 (89) 100 10/29/19 23:15 69 13 24 10/29/19 21:00 24 10/29/19 20:25 78 10/29/19 20:20 83 133/60 10/29/19 20:00 97.9 83 17 130/65 (86) 100 10/29/19 20:00 Mechanical Ventilator 10/29/19 18:52 79 14 24 10/29/19 16:00 97.3 81 18 117/63 (81) 100 10/29/19 16:00 Mechanical Ventilator 10/29/19 16:00 74 10/29/19 16:00 24 10/29/19 14:50 74 13 24 10/29/19 12:00 Mechanical Ventilator 10/29/19 12:00 97.2 83 16 110/58 (75) 100 10/29/19 12:00 24 10/29/19 12:00 84 10/29/19 11:14 84 12 24 10/29/19 08:11 88 107/58 10/29/19 08:11 107/58 10/29/19 08:00 97.7 88 12 107/58 (74) 100 10/29/19 08:00 87 10/29/19 08:00 Mechanical Ventilator 10/29/19 08:00 24 10/29/19 07:00 88 14 24 10/29/19 04:00 Mechanical Ventilator 10/29/19 04:00 98.2 92 19 110/56 (74) 100 10/29/19 04:00 24 10/29/19 03:34 93 10/29/19 03:34 98.3 92 19 110/56 (74) 100 10/29/19 02:59 8 16 24 10/29/19 00:00 Mechanical Ventilator 10/29/19 00:00 98.3 108 19 109/54 (72) 100 10/28/19 23:40 108 10/28/19 22:56 106 17 24 10/28/19 20:03 106 111/53 10/28/19 20:00 98.4 106 19 111/53 (72) 100 10/28/19 20:00 24 10/28/19 20:00 Mechanical Ventilator 10/28/19 19:32 99 10/28/19 18:59 99 17 24 10/28/19 16:00 77 10/28/19 16:00 24 10/28/19 16:00 97.8 106 19 112/68 (83) 100 10/28/19 16:00 Mechanical Ventilator 10/28/19 15:10 77 22 24 10/28/19 12:00 98.1 95 18 101/62 (75) 100 10/28/19 12:00 106 10/28/19 12:00 24 10/28/19 12:00 Mechanical Ventilator 10/28/19 11:20 106 22 24 10/28/19 09:55 122/62 Intake and Output 10/29/19 10/30/19 19:00 07:00 Intake Total 790 ml 510 ml Output Total 10 ml 10 ml Balance 780 ml 500 ml Free Water 60 ml 60 ml IV Total 55 ml Tube Feeding 675 ml 450 ml Stool Total 10 ml 10 ml Labs Test 10/27/19 12:01 10/27/19 18:26 10/28/19 00:49 10/28/19 05:30 POC Whole Blood Glucose 165 MG/DL (74-106) 218 MG/DL (74-106) 189 MG/DL (74-106) Test 10/28/19 07:05 10/28/19 23:10 10/29/19 05:24 10/29/19 06:50 White Blood Count 20.8 K/UL (4.8-10.8) 19.2 K/UL (4.8-10.8) Red Blood Count 3.72 M/UL (4.70-6.10) 3.87 M/UL (4.70-6.10) Hemoglobin 8.7 G/DL (14.2-18.0) 9.0 G/DL (14.2-18.0) Hematocrit 27.9 % (42.0-52.0) 29.0 % (42.0-52.0) Mean Corpuscular Volume 75 FL (80-99) 75 FL (80-99) Mean Corpuscular Hemoglobin 23.5 PG (27.0-31.0) 23.2 PG (27.0-31.0) Mean Corpuscular Hemoglobin Concent 31.3 G/DL (32.0-36.0) 31.0 G/DL (32.0-36.0) Red Cell Distribution Width 16.7 % (11.6-14.8) 16.7 % (11.6-14.8) Platelet Count 516 K/UL (150-450) 561 K/UL (150-450) Mean Platelet Volume 5.1 FL (6.5-10.1) 5.6 FL (6.5-10.1) Neutrophils (%) (Auto) % (45.0-75.0) % (45.0-75.0) Lymphocytes (%) (Auto) % (20.0-45.0) % (20.0-45.0) Monocytes (%) (Auto) % (1.0-10.0) % (1.0-10.0) Eosinophils (%) (Auto) % (0.0-3.0) % (0.0-3.0) Basophils (%) (Auto) % (0.0-2.0) % (0.0-2.0) Differential Total Cells Counted 100 100 Neutrophils % (Manual) 74 % (45-75) 79 % (45-75) Lymphocytes % (Manual) 15 % (20-45) 13 % (20-45) Monocytes % (Manual) 7 % (1-10) 6 % (1-10) Eosinophils % (Manual) 4 % (0-3) 2 % (0-3) Basophils % (Manual) 0 % (0-2) 0 % (0-2) Band Neutrophils 0 % (0-8) 0 % (0-8) Platelet Estimate Increased Increased Platelet Morphology Normal Normal Hypochromasia 2+ 1+ Anisocytosis 1+ 1+ Microcytosis 2+ 1+ Sodium Level 127 MMOL/L (136-145) 134 MMOL/L (136-145) Potassium Level 4.8 MMOL/L (3.5-5.1) 3.4 MMOL/L (3.5-5.1) Chloride Level 96 MMOL/L (98-107) 98 MMOL/L (98-107) Carbon Dioxide Level 16 MMOL/L (21-32) 26 MMOL/L (21-32) Anion Gap 15 mmol/L (5-15) 10 mmol/L (5-15) Blood Urea Nitrogen 91 mg/dL (7-18) 56 mg/dL (7-18) Creatinine 4.2 MG/DL (0.55-1.30) 3.2 MG/DL (0.55-1.30) Estimat Glomerular Filtration Rate 13.8 mL/min (>60) 18.9 mL/min (>60) Glucose Level 178 MG/DL (74-106) 193 MG/DL (74-106) Calcium Level 8.8 MG/DL (8.5-10.1) 8.8 MG/DL (8.5-10.1) POC Whole Blood Glucose 240 MG/DL (74-106) 204 MG/DL (74-106) Test 10/29/19 11:19 10/29/19 16:39 10/29/19 23:37 10/30/19 05:16 POC Whole Blood Glucose 142 MG/DL (74-106) 178 MG/DL (74-106) 188 MG/DL (74-106) 181 MG/DL (74-106) Height (Feet): 5 Height (Inches): 10.00 Weight (Pounds): 123 Objective Physical Exam General Appearance: nad, Chronically Ill Head: normocephalic Eyes: right eye PERRL - Will not open left eye ENT: moist mucus membranes Neck: other - submandibular mass R, fairly rigid with resistance to rotation to L, tracheotomy Respiratory: decreased breath sounds, crackles, other - pacemaker, vent+ Cardiovascular: regular rate, rhythm, edema - anasarca Gastrointestinal: non tender, distended, other - G tube Genitourinary: other Musculoskeletal: other - Contractures all extremities Neurologic: sensory intact, motor weakness, responsive Psychiatric: other Skin: Decubitus/Ulcer - Stage III right elbow, stage III left elbow, stage II sacrum, stage III scrotum, warm/dry Fitz Campos MD Oct 30, 2019 09:36
--- NOTE | 2019-10-30 09:40 | NUR ---
NURSE NOTES: Dr. Mustafa at the bedside, made aware of decrease in stool output, abdominal distention, per MD turn patient to the side so gas can pass.
--- NOTE | 2019-10-30 11:18 | Infectious Diseases Prog Note ---
Assessment/Plan Assessment/Plan A: 1. Pneumonia with Morganella & KPC COVID19 X2 : negative 2. ESRD on HD 3. Leukocytosis 4. Respiratory failure, Ventilator dependent 5. Anemia 6. Elevated transaminase 7. 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 Klebsiella catheter infection s/p removal 10. Diarrhea, C. difficile negative 11. Genital wart PLAN: 1. Continue Cefepime & Acyclovir 2. will f/u CXR 3. Start on Colistin inhaler 4. Case was D/W microbiology Subjective ROS Limited/Unobtainable: Yes Allergies: Coded Allergies: No Known Allergies (Unverified , 06/10/19) Objective Last 24 Hour Vital Signs Date Time Temp Pulse Resp B/P (MAP) Pulse Ox O2 Delivery O2 Flow Rate FiO2 10/30/19 08:12 100 140/63 10/30/19 08:00 24 10/30/19 08:00 Mechanical Ventilator 10/30/19 08:00 97.7 100 15 140/63 (88) 100 10/30/19 07:30 98 14 24 10/30/19 04:00 24 10/30/19 04:00 Mechanical Ventilator 10/30/19 04:00 98.0 99 20 158/83 (108) 100 10/30/19 04:00 94 10/30/19 03:13 92 16 24 10/30/19 00:00 Mechanical Ventilator 10/30/19 00:00 97.5 72 16 145/61 (89) 100 10/29/19 23:15 69 13 24 10/29/19 21:00 24 10/29/19 20:25 78 10/29/19 20:20 83 133/60 10/29/19 20:00 97.9 83 17 130/65 (86) 100 10/29/19 20:00 Mechanical Ventilator 10/29/19 18:52 79 14 24 10/29/19 16:00 97.3 81 18 117/63 (81) 100 10/29/19 16:00 Mechanical Ventilator 10/29/19 16:00 74 10/29/19 16:00 24 10/29/19 14:50 74 13 24 10/29/19 12:00 Mechanical Ventilator 10/29/19 12:00 97.2 83 16 110/58 (75) 100 10/29/19 12:00 24 10/29/19 12:00 84 Height (Feet): 5 Height (Inches): 10.00 Weight (Pounds): 123 General Appearance: no acute distress HEENT: status post trach Respiratory/Chest: decreased breath sounds, other - on ventilator Cardiovascular: tachycardia Abdomen: soft, non tender, other - GT feeding Extremities: no edema Neurologic/Psychiatric: aphasia Musculoskeletal: atrophy Laboratory Tests Test 10/29/19 11:19 10/29/19 16:39 10/29/19 23:37 10/30/19 05:16 POC Whole Blood Glucose 142 MG/DL (74-106) H 178 MG/DL (74-106) H 188 MG/DL (74-106) H 181 MG/DL (74-106) H Current Medications Medications (Trade) Dose Ordered Sig/Leonel Route PRN Reason Start Time Stop Time Status Last Admin Dose Admin Acetaminophen (Tylenol) 650 mg Q6H PRN GT Temp >100.5 10/21/19 20:45 11/20/19 20:44 10/24/19 10:25 Acyclovir (Zovirax) 400 mg Q12HR ORAL 10/23/19 13:00 11/22/19 12:59 10/30/19 08:12 Cefepime HCl 1 gm/ Dextrose 55 ml @ 110 mls/hr Q24H IVPB 10/27/19 12:00 11/03/19 11:59 10/29/19 12:13 Chlorhexidine Gluconate (Felipa-Hex 2%) 1 applic DAILY@2000 TOPIC 09/12/19 20:00 12/11/19 19:59 10/29/19 20:17 Clonidine HCl (Catapres Tab) 0.1 mg Q4H PRN GT For High Blood Pressure 09/09/19 12:30 12/08/19 05:29 09/15/19 04:10 Dextrose (Dextrose 50%) 25 ml Q30M PRN IV Hypoglycemia 08/09/19 07:30 11/07/19 07:29 Dextrose (Dextrose 50%) 50 ml Q30M PRN IV Hypoglycemia 08/09/19 07:30 11/07/19 07:29 Enoxaparin Sodium (Lovenox) 30 mg DAILY SUBQ 10/24/19 09:00 01/22/20 08:59 10/30/19 08:14 Epoetin Andreas (Epoetin Andreas(ESRD on dialysis)) 8,000 unit WED-WED-WED SUBQ 10/25/19 21:00 01/23/20 20:59 10/27/19 21:06 Famotidine (Pepcid) 20 mg DAILY GT 08/30/19 09:00 11/28/19 08:59 10/30/19 08:12 Insulin Aspart (NovoLOG) Q6HR SUBQ 09/25/19 18:00 11/07/19 11:29 10/30/19 05:28 Lactobacillus Acidophilus (Culturelle) 1 tab EVERY 12 HOURS GT 10/03/19 21:00 12/13/19 17:59 10/30/19 08:11 Loperamide HCl (Imodium) 2 mg Q6H PRN NG Diarrhea 10/15/19 07:45 11/14/19 07:44 Metoprolol Tartrate (Lopressor) 200 mg Q12HR GT 08/09/19 09:00 11/07/19 08:59 10/30/19 08:12 Minoxidil (Loniten) 5 mg DAILY GT 08/09/19 09:00 11/07/19 08:59 10/28/19 09:55 Sodium Chloride 500 ml @ 999 mls/hr Q31M PRN IV sbp<90 10/28/19 21:30 11/27/19 21:29 Zinc Oxide (Zinc Oxide) 1 applic EVERY 12 HOURS TOPIC 10/03/19 09:00 11/08/19 17:59 10/30/19 08:15 Real De Leon MD Oct 30, 2019 11:17
[2019-10-30 12:00] VITALS: BP 145/72
--- NOTE | 2019-10-30 12:36 | Nephrology Progress Note ---
Assessment/Plan Plan Septic Shock -Restarted IV Abx per ID. MOF ESRD - HD TTS + IVF boluses. Anemia of CKD -TUYET. Subjective Subjective Obtunded. Objective Objective Last 24 Hour Vital Signs Date Time Temp Pulse Resp B/P (MAP) Pulse Ox O2 Delivery O2 Flow Rate FiO2 10/30/19 11:15 70 12 24 10/30/19 08:12 100 140/63 10/30/19 08:00 24 10/30/19 08:00 99 10/30/19 08:00 Mechanical Ventilator 10/30/19 08:00 97.7 100 15 140/63 (88) 100 10/30/19 07:30 98 14 24 10/30/19 04:00 24 10/30/19 04:00 Mechanical Ventilator 10/30/19 04:00 98.0 99 20 158/83 (108) 100 10/30/19 04:00 94 10/30/19 03:13 92 16 24 10/30/19 00:00 Mechanical Ventilator 10/30/19 00:00 97.5 72 16 145/61 (89) 100 10/29/19 23:15 69 13 24 10/29/19 21:00 24 10/29/19 20:25 78 10/29/19 20:20 83 133/60 10/29/19 20:00 97.9 83 17 130/65 (86) 100 10/29/19 20:00 Mechanical Ventilator 10/29/19 18:52 79 14 24 10/29/19 16:00 97.3 81 18 117/63 (81) 100 10/29/19 16:00 Mechanical Ventilator 10/29/19 16:00 74 10/29/19 16:00 24 10/29/19 14:50 74 13 24 Intake and Output 10/29/19 10/30/19 19:00 07:00 Intake Total 790 ml 510 ml Output Total 10 ml 10 ml Balance 780 ml 500 ml Free Water 60 ml 60 ml IV Total 55 ml Tube Feeding 675 ml 450 ml Stool Total 10 ml 10 ml Laboratory Tests 10/29/19 16:39: POC Whole Blood Glucose 178H 10/29/19 23:37: POC Whole Blood Glucose 188H 10/30/19 05:16: POC Whole Blood Glucose 181H 10/30/19 11:28: POC Whole Blood Glucose 134H Height (Feet): 5 Height (Inches): 10.00 Weight (Pounds): 123 Objective Clammy, diaphoretic CV RR Trach clean Lungs CTA Perma Cath RIJ. Abd SNT. BS + E No CCE Barely responsive Erica Pichardo MD Oct 30, 2019 12:36
[2019-10-30] MEDS ORDERED: Heparin Sod 1000 units/ml 10ml IV PRN (13:24)
[2019-10-30] MEDS ORDERED: Heparin 1000 units/ml 1ml Vial INJ PRN (13:25)
[2019-10-30] MEDS: Cefepime HCl 1 GM in D5W 55 ML IVPB SCH (13:35)
--- NOTE | 2019-10-30 14:47 | NUR ---
NURSE NOTES: Called [facility] Nephrology tele : [phone] spoke with Sia and informed patient schedule for HD tomorrow 10/31/[address] Pichardo.
--- NOTE | 2019-10-30 14:52 | NUR ---
CASE MANAGEMENT: REVIEW SI: SEPTIC SHOCK . ESRD on HD . PNA T 97.7 HR 100 RR 15 BP 145/72 SAT 100% MECH VENT FIO2 24 WBC 19.2 H/H 9.0/29.0 IS: COLISTIN INH Q12HR CEFEPIME Q24HR EPOETIN SUBQ MWF STEP DOWN UNIT STATUS DCP: PLACEMENT PENDING. HEALTH PLAN ASSISTING WITH PLACEMENT
[2019-10-30 16:00] VITALS: BP 121/50
--- NOTE | 2019-10-30 19:30 | NUR ---
NURSE NOTES: RECEIVED PATIENT FROM [facility] WOOD.WITH TRACH TO VENT AT ORDERED SETTINGS TV 550 AC 12 FIO2 24% PEEP 5 WELL TOLERATED.VITAL SIGNS STABLE,V-PACED ON THE MONITOR.G-TUBE FEED GLUCERNA 1.2 AT 45 CC/HR NO RESIDUALS NOTED KEEP HOB AT 40 DEGREES.ORAL CARE RENDERED.REPOSITIONED FOR COMFORT.WOUND DRESSING DRY AND INTACT RECTAL TUBE IN PLACE WITH SMALL AMOUNT OF LIQUID STOOLS.OFFLOAD HEELS ALL THE TIME.PERMA-CATH INTACT TO THE RIGHT SUBCLAVIAN,FOR HEMODIALYSIS IN THE MORNING ORDERED BY MD.WILL CONTINUE PLAN OF CARE.
--- NOTE | 2019-10-30 19:30 | NUR ---
NURSE HAND-OFF REPORT: Important Events on Shift: NA , HD tomorrow 10/30 Patient Status: stable Diet: Nephro @ 45ml/h Pending Orders: na Pending Results/Labs:na Pending MD notification:na Latest Vital Signs: Temperature 98.8 , Pulse 86 , B/P 121 /50 , Respiratory Rate 15 , O2 SAT 96 , Mechanical Ventilator, O2 Flow Rate 15.0 . Vital Sign Comment: stable EKG Rhythm: V-Paced Rhythm change?: N MD Notified?: N - MD Response: Latest Delacruz Fall Score: 70 Fall Risk: High Risk Safety Measures: Call light Within Reach, Bed Alarm Zone 2, Side Rails Side Rails x3, Bed position Low and Locked. Fall Precautions: Yellow Socks Yellow Gown Patient Fall Education Report given to TAMICA Guerrier.
[2019-10-30 20:00] VITALS: BP 116/53
[2019-10-30] MEDS: Dyna-Hex 2% Top Sol 2oz TOPIC SCH (21:16)
[2019-10-30] MEDS: Epoetin Alfa-EPBX(ESRD on dialysis)4000 units/ml vial SUBQ SCH (21:17)
--- NOTE | 2019-10-30 21:45 | General Progress Note ---
Subjective Allergies: Coded Allergies: No Known Allergies (Unverified , 06/10/19) Subjective above noted NAD on TF non communicative Objective Last 24 Hour Vital Signs Date Time Temp Pulse Resp B/P (MAP) Pulse Ox O2 Delivery O2 Flow Rate FiO2 10/30/19 21:00 91 107/69 10/30/19 19:22 86 15 24 10/30/19 16:00 24 10/30/19 16:00 98.8 93 16 121/50 (73) 96 10/30/19 16:00 91 10/30/19 16:00 Mechanical Ventilator 10/30/19 15:05 82 16 24 10/30/19 12:00 69 10/30/19 12:00 Mechanical Ventilator 10/30/19 12:00 24 10/30/19 12:00 98.2 70 12 145/72 (96) 100 10/30/19 11:15 70 12 24 10/30/19 08:12 100 140/63 10/30/19 08:00 24 10/30/19 08:00 99 10/30/19 08:00 Mechanical Ventilator 10/30/19 08:00 97.7 100 15 140/63 (88) 100 10/30/19 07:30 98 14 24 10/30/19 04:00 24 10/30/19 04:00 Mechanical Ventilator 10/30/19 04:00 98.0 99 20 158/83 (108) 100 10/30/19 04:00 94 10/30/19 03:13 92 16 24 10/30/19 00:00 Mechanical Ventilator 10/30/19 00:00 97.5 72 16 145/61 (89) 100 10/29/19 23:15 69 13 24 Intake and Output 10/29/19 10/30/19 19:00 07:00 Intake Total 790 ml 510 ml Output Total 10 ml 10 ml Balance 780 ml 500 ml Free Water 60 ml 60 ml IV Total 55 ml Tube Feeding 675 ml 450 ml Stool Total 10 ml 10 ml Laboratory Tests 10/29/19 23:37: POC Whole Blood Glucose 188H 10/30/19 05:16: POC Whole Blood Glucose 181H 10/30/19 11:28: POC Whole Blood Glucose 134H 10/30/19 16:04: POC Whole Blood Glucose 181H Height (Feet): 5 Height (Inches): 10.00 Weight (Pounds): 123 Objective Debilitated AA man NCAT (+) trach coarse BS RR abd less distended, anasarca, (+) GT, (+) rectal tube ext contracted Assessment/Plan Assessment/Plan: Assessment - abdominal distention, due to colonic dysmotility, - colonoscopy negative to hepatic flexure - diarrhea - presumed TF related - abnormal LFT - ? etiology --> HIDA negative and CT negative - Anemia - leukocytosis - stool OB (+) - EGD --> gastritis - Renal failure - Anasarca - resp failure, trach - b/l pleural effusions - dysphagia, GT - encephalopathy, contracted - poor px Recommendations - continue TF - check hepatitis markers - negative - rectal tube - roll side to side as feasible (hard due to severe contractions) - Elevate HOB - f/u labs - PPI - abx - supportive care Ronny Mustafa MD Oct 30, 2019 21:45
[2019-10-30] MEDS: Colistin for inhalation INH SCH (21:49)
[2019-10-31] VITALS: BP 117/71
[2019-10-31 03:56] LABS: HEMATOCRIT 29.5 % (42.0-52.0); HEMOGLOBIN 9.1 G/DL (14.2-18.0); MEAN CORPUSCULAR VOLUME 76 FL (80-99); PLATELET COUNT 609 K/UL (150-450); WHITE BLOOD COUNT 20.5 K/UL (4.8-10.8)
[2019-10-31 04:00] VITALS: BP 141/86
[2019-10-31 04:36] LABS: INR 1.2 (0.9-1.1)
[2019-10-31 04:47] LABS: ALBUMIN 1.9 G/DL (3.4-5.0); ALBUMIN/GLOBULIN RATIO 0.3 (1.0-2.7); BILIRUBIN,TOTAL 0.4 MG/DL (0.2-1.0); CALCIUM 9.2 MG/DL (8.5-10.1); CREATININE 4.6 MG/DL (0.55-1.30); POTASSIUM 3.4 MMOL/L (3.5-5.1)
[2019-10-31] MEDS: NovoLOG Insulin Flexpen SUBQ SCH ×4 (06:16→23:18)
--- NOTE | 2019-10-31 07:49 | NUR ---
HAND-OFF: Report given to TAMICA House.
--- NOTE | 2019-10-31 07:50 | NUR ---
NURSE HAND-OFF REPORT: Important Events on Shift:none Patient Status: Diet: Nepro at 45cc Pending Orders: For Hemodialysis with VIP Pending Results/Labs: Pending MD notification:none Latest Vital Signs: Temperature 98.0 , Pulse 87 , B/P 141 /86 , Respiratory Rate 15 , O2 SAT 100 , Mechanical Ventilator TV 55o AC 12 fio2 24% peep 5, O2 Flow Rate 15.0 . Vital Sign Comment: Stable EKG Rhythm: V paced w/bbb Rhythm change?: N MD Notified?: N - MD Response: Latest [place]ruz Fall Score: 70 Fall Risk: High Risk Safety Measures: Call light Within Reach, Bed Alarm Zone 2, Side Rails Side Rails x3, Bed position Low and Locked. Fall Precautions: Yellow Socks Yellow Gown Patient Fall Education Report given to .
--- NOTE | 2019-10-31 07:58 | General Progress Note ---
Subjective ROS Limited/Unobtainable: Yes Allergies: Coded Allergies: No Known Allergies (Unverified , 06/10/19) Subjective remains ill on vent/ no change on HD vitals noted= transient hypotension Objective Last 24 Hour Vital Signs Date Time Temp Pulse Resp B/P (MAP) Pulse Ox O2 Delivery O2 Flow Rate FiO2 10/31/19 04:00 24 10/31/19 04:00 Mechanical Ventilator 10/31/19 04:00 98.0 87 15 141/86 (104) 100 10/31/19 04:00 86 10/31/19 02:32 100 16 24 10/31/19 01:00 86 10/31/19 00:00 98.2 99 15 117/71 (86) 100 10/31/19 00:00 Mechanical Ventilator 10/31/19 00:00 24 10/30/19 22:00 83 20 100 Mechanical Ventilator 24 85 21 24 10/30/19 21:00 91 107/69 10/30/19 20:00 Mechanical Ventilator 10/30/19 20:00 98.2 94 15 116/53 (74) 95 10/30/19 20:00 96 10/30/19 20:00 24 10/30/19 19:22 86 15 24 10/30/19 16:00 24 10/30/19 16:00 98.8 93 16 121/50 (73) 96 10/30/19 16:00 91 10/30/19 16:00 Mechanical Ventilator 10/30/19 15:05 82 16 24 10/30/19 12:00 69 10/30/19 12:00 Mechanical Ventilator 10/30/19 12:00 24 10/30/19 12:00 98.2 70 12 145/72 (96) 100 10/30/19 11:15 70 12 24 10/30/19 08:12 100 140/63 10/30/19 08:00 24 10/30/19 08:00 99 10/30/19 08:00 Mechanical Ventilator 10/30/19 08:00 97.7 100 15 140/63 (88) 100 Intake and Output 10/30/19 10/31/19 19:00 07:00 Intake Total 550 ml 855 ml Output Total 50 ml 100 ml Balance 500 ml 755 ml Free Water 90 ml 360 ml IV Total 55 ml Tube Feeding 405 ml 495 ml Stool Total 50 ml 100 ml Laboratory Tests 10/30/19 11:28: POC Whole Blood Glucose 134H 10/30/19 16:04: POC Whole Blood Glucose 181H 10/30/19 23:41: POC Whole Blood Glucose 202H 10/31/19 02:46: White Blood Count 20.5H, Red Blood Count 3.90L, Hemoglobin 9.1L, Hematocrit 29.5L, Mean Corpuscular Volume 76L, Mean Corpuscular Hemoglobin 23.3L, Mean Corpuscular Hemoglobin Concent 30.8L, Red Cell Distribution Width 17.0H, Platelet Count 609H, Mean Platelet Volume 5.5L, Neutrophils (%) (Auto) , Lymphocytes (%) (Auto) , Monocytes (%) (Auto) , Eosinophils (%) (Auto) , Basophils (%) (Auto) , Neutrophils % (Manual) [Pending], Lymphocytes % (Manual) [Pending], Platelet Estimate [Pending], Platelet Morphology [Pending], Erythrocyte Sedimentation Rate 110H, Prothrombin Time 12.7H, Prothromb Time International Ratio 1.2H, Activated Partial Thromboplast Time 32, Sodium Level 133L, Potassium Level 3.4L, Chloride Level 97L, Carbon Dioxide Level 25, Anion Gap 11, Blood Urea Nitrogen 88H, Creatinine 4.6H, Estimat Glomerular Filtration Rate 12.4, Glucose Level 187H, Calcium Level 9.2, Total Bilirubin 0.4, Aspartate Amino Transf (AST/SGOT) 52H, Alanine Aminotransferase (ALT/SGPT) 56, Alkaline Phosphatase 282H, C-Reactive Protein, Quantitative 14.9H, Total Protein 8.0, Albumin 1.9L, Globulin 6.1, Albumin/Globulin Ratio 0.3L, Amylase Level 45, Lipase 185 10/31/19 04:53: POC Whole Blood Glucose [Pending] Height (Feet): 5 Height (Inches): 10.00 Weight (Pounds): 123 Objective GENERAL: Ill-appearing male, chronically debilitated. HEENT: Tracheostomy in midline. Questionable fullness in the submandibular region. LUNGS: Coarse breath sounds. reduced breath sounds CARDIAC: S1, S2. Regular rate and rhythm. borderline tachy ABDOMEN: Soft. G-tube. EXTREMITIES: With noted edema. NEUROLOGICAL: Poorly responsive, weak diffusely. Assessment/Plan Assessment/Plan: IMPRESSION: 1. anemia. 2. fevers improved 3. Leukocytosis. 4. hypotension 5. Acute on chronic renal failure. 6. Hyponatremia. 7. Severe protein-calorie malnutrition. 8. Significantly elevated C-reactive protein concerning for infectious etiology. 9. Tracheostomy, G-tube. 10. Ventilator dependence. 11. anasarca 12. Hematuria 13. V pacing 14. hyponatremia 15. transaminitis, HIDA negative PLAN colisitn added on acyclovir chronic care; unable to place care noted- bolus prn for hypotension on vent/ no wean monitor labs and optimize ID follow up - wbc now worse dialysis ongoing- adjust lytes prognosis poor for recovery impression, plan, and exam edited and reviewed in detail care discussed with Kain Tovar MD Oct 31, 2019 07:58
[2019-10-31 08:00] VITALS: BP 155/69
--- NOTE | 2019-10-31 08:00 | NUR ---
Received patient not in any acute cardio respiratory distress connected to ventilator with ventilator setting well tolerated.Suction secretion prn. Oral care provided noted patient with resistance when giving oral care.Complete bath provided to the patient and reposition for comfort.
--- NOTE | 2019-10-31 08:54 | Hematology/Onc Progress Note ---
Assessment/Plan Assessment/Plan Assessment/recs # Anemia due to chronic disease/kidney disease as well, gi bleed + occult + noted --> was on iron in the past, now on hold --> has been started on Epogen sq --> as per renal care --> egd done and shows gastritis --> on ppi --> egd showed gastritis, colo recently done --> hgb 9-->8. 7-->7.6-->9.2-->8.9-->9.2->9.3-->8.8->9.9-->9.2-->8.1-->8.7-->7.9-->8.6-->8.9--> 8.2->9-->9.3->8.9-->9.5-->10.6->9.2-->10->8.9--> 8.3-->8.9-->9.9-->9.3-->9-->9.3->11-->8.6->8.7>9 --> spep ordered->wnl # Leukocytosis - with multiple infections, VRE UTI, flow is negative --> wbc trend 33-->28-->25->23->22->23->24->17.3-->17-->14->16-->15.6-->14-->14->13->19->18->1 7 ->22->22->19->17-->18->20-->15-->14->16-->14-->17->18-->17->15-->16-->17->28->19 -->21 --> on abx, linezolid and zosyn--> zosyn-->gent-->off-->vanc/zosyn --> + blood cultures with coag neg staph likely contaminated --> as per id recs --> has ordered a flow cytometry (with pathology) --> does show increased nK cell activity --> JOURDAN 2 and bcr-abl labs ordered (these are send outs)->negative --> plt 585-->613-->649-->669->663-->529-->506-->620-->720 # Elevated ddimer on admission --> duplex lower legs neg for dvt # Respiratory failure --> per pulm, s/p trach --> COVID 19 test negative x 2 # Hyperlipidemia --> statin po # Dysphagia s/p gtube with nepro --> per gi # ESRD with r fem julito --> hd as per renal # Dvt ppx lovenox sq Appreciate consultation and dw Rn Subjective Constitutional: Denies: no symptoms, chills, fever, malaise, weakness, other HEENT: Denies: no symptoms, eye pain, blurred vision, tearing, double vision, ear pain, ear discharge, nose pain, nose congestion, throat pain, throat swelling, mouth pain, mouth swelling, other Respiratory: Denies: no symptoms, cough, shortness of breath, SOB with excertion, SOB at rest, sputum, wheezing, other Genitourinary: Denies: no symptoms, burning, discharge, frequency, flank pain, hematuria, incontinence, pain, urgency, other Neurologic/Psychiatric: Denies: no symptoms, anxiety, depressed, emotional problems, headache, numbness, paresthesia, pre-existing deficit, seizure, tingling, tremors, weakness, other Allergies: Coded Allergies: No Known Allergies (Unverified , 06/10/19) Subjective 08/15 meds noted, no bleeding, hgb 8.8, wbc 28, path flow pending 08/16 flow pending dw pathologist, results pending, wbc 25, hgb 9 08/17 labs reviewed, meds reviewed, meds noted, no night sweats 08/19 remains obtunded, on vent/trach, no bleeding wbc 21.7 08/20 labs have been reviewed, no bleeding, wbc still elev, path reviewed 08/21 labs are noted, no bleeding, on vent, wbc better 08/22 labs noted, no bleeding, meds reviewed, wbc 24 hgb 7.6 08/23 vent, off abx, c diff negative, h/h stable 08/24 labs reviewed, on abx, wbc 17, hgb 8.9, no hemolysis 08/26 reviewed flow and is negative for leukemia, matt rn 08/27 meds reviewed, no night sweats, matt rn, no major bleeding 08/28 meds reivewed, labs noted 08/29 wbc is stable, approx 15, hgb 8.8, no hemolysis 08/30 labs are noted, is for colo today, hgb 9.9 08/31 right fem julito in place, unchanged, hgb 9.2, gi aware 09/01 labs noted, hgb 8.8, plt >600, no bleeding 09/02 labs noted, no bleeding, with elev wbc still, no new changes 09/03 meds are noted, no bleeding, labs reviewed hgb 8.6 09/04 no major events, hd as per renal, abx, no bleeding hgb low 09/05 labs are noted, no bleeding, meds have been reviewed 09/06 no new labs no hemolysis, cbc is noted, no bleeding 09/07 meds reviewed, no bleeding, matt rn, permacath functioning well 09/09 meds reviewed, wbc still elevated, as per id recs, cbc noted 09/10 is obtunded, with gutbe in place, labs reviewed 09/11 obtunded, as per id, observe now off abx, labs noted, wbc 19 09/12 cbc is pending, remains on epogen, also off abx 09/13 labs reviewed, no bleeding, elev wbc, no night sweats 09/14 meds noted, no bleeding, wbc 19, hgb 9.5, no night sweats 09/21 obtunded, remains on vent, labs noted, no bleeding, hgb 8.9 09/22 obtunded, labs noted, no bleeding, on vent, unchanged 09/23 unchanges, wbc remains elevated 20k, on abx, on vent 09/24 labs have been reviewed, no bleeding, wbc 15, may need abx 09/25 formula gtube changed, labs noted, remains obtunded, hgb 9.3 09/26 labs have been reviewed, no bleeding, matt rn, no night sweats 09/27 meds reviewed, no bleeding, wbc 14, on abx, remains obtunded 09/28 remains obtunded, no bleeding, wbc better, hgb 8.9, no hemolysis, plt 506 09/30 on colisitn, wbc elevated, cefepime added per id, hgb stable 10/01 labs reviewed, no bleeding, matt rn, no major events noted, wbc 14, hgb 10.6 10/02 labs have been noted, hgb 9.2, wbc 17, on abx, matt rn 10/03 continue on tube feeds, no bleeding, on vent, wbc remains elevated 10/04 remains ibtunded, is on a mechanical ventilator with tube feeds noted 10/05 labs are noted, hgb 8.6, wbc remains elevated, have ordered for spep 10/07 obtunded on vent, with gtube feeds, labs reviewed, matt rn 10/08 labs are noted, on vent/trach, hgb 10.2, remains obtunded 10/09 labns noted, wbc 15, hgb 8.9, remains altered, on tfs 10/10 labs noted, holding tube feeds, matt rn, hg stable 8. currently 10/11 remains on tfs, supportive care, labs noted, no bleeding 10/12 remains obtunded, hgb 8.9, no hemolysis is seen 10/14 labs reviewed, no bleeding, pending potential hd if rn available 10/15 is on vent, with gtube, labs reviewed, no bleeding, to get hd soon 10/16 remains on vent, matt rn at bedside, wbc 15, abx prn, plt also higher, will monitor 10/17 on vent, continue on tube feeds via gtube, labs improved 10/18 labs noted, remains on vent, and tube feeds, no major changes 10/19 nad, no bleeding, labs reviewed, no night sweats, bp elevated, cards aware 10/21 labs pending, with gtube running, on mec vent, abx off 10/22 labs reviewed, no major changes, wbc 18, plt 791k, on gtube feeds 10/23 labs reviewed, meds noted, on epogen and lovenox sq, obtunded, is nv 9.16 labs are noted, wbc 28, hgb 8.6, no hemolysis is noted 10/27 labs reviewed, on mech vent, on gtube feeds, no bleeding wbc 21 10/28 labs noted, wbc 19, plt remains elevated, hd as per renal Dr. Frank 10/29 obtunded, gt feedings on hold, wbc 19, hgb 9, no bleeding 10/30 labs reviewed, no bleeding, wbc 21, hgb 9, hd as per renal care Objective Objective Current Medications Medications (Trade) Dose Ordered Sig/Leonel Route PRN Reason Start Time Stop Time Status Last Admin Dose Admin Acetaminophen (Tylenol) 650 mg Q6H PRN GT Temp >100.5 10/21/19 20:45 11/20/19 20:44 10/24/19 10:25 Acyclovir (Zovirax) 400 mg Q12HR ORAL 10/23/19 13:00 11/22/19 12:59 10/30/19 21:16 Cefepime HCl 1 gm/ Dextrose 55 ml @ 110 mls/hr Q24H IVPB 10/27/19 12:00 11/03/19 11:59 10/30/19 13:35 Chlorhexidine Gluconate (Felipa-Hex 2%) 1 applic DAILY@1999 TOPIC 09/12/19 20:00 12/11/19 19:59 10/30/19 21:16 Clonidine HCl (Catapres Tab) 0.1 mg Q4H PRN GT For High Blood Pressure 09/09/19 12:30 12/08/19 05:29 09/15/19 04:10 Colistimethate Sodium (Colistin *inhalation use only*) 75 mg Q12HR@ INH 10/30/19 22:00 11/06/19 21:59 10/30/19 21:49 Dextrose (Dextrose 50%) 25 ml Q30M PRN IV Hypoglycemia 08/09/19 07:30 11/07/19 07:29 Dextrose (Dextrose 50%) 50 ml Q30M PRN IV Hypoglycemia 08/09/19 07:30 11/07/19 07:29 Enoxaparin Sodium (Lovenox) 30 mg DAILY SUBQ 10/24/19 09:00 01/22/20 08:59 10/30/19 08:14 Epoetin Andreas (Epoetin Andreas(ESRD on dialysis)) 8,000 unit WED-WED-WED SUBQ 10/25/19 21:00 01/23/20 20:59 10/30/19 21:17 Famotidine (Pepcid) 20 mg DAILY GT 08/30/19 09:00 11/28/19 08:59 10/30/19 08:12 Heparin Sodium (Porcine) (Heparin Sod 1000 units/ml 10ml) 2,000 unit ONCE PRN IV HD 10/30/19 13:24 10/31/19 23:59 Heparin Sodium (Porcine) (Heparin) 1,000 unit POSTHD PRN INJ POST HD 10/30/19 13:25 10/31/19 23:59 Insulin Aspart (NovoLOG) Q6HR SUBQ 09/25/19 18:00 11/07/19 11:29 10/31/19 06:16 Lactobacillus Acidophilus (Culturelle) 1 tab EVERY 12 HOURS GT 10/03/19 21:00 12/13/19 17:59 10/30/19 21:16 Loperamide HCl (Imodium) 2 mg Q6H PRN NG Diarrhea 10/15/19 07:45 11/14/19 07:44 Metoprolol Tartrate (Lopressor) 200 mg Q12HR GT 08/09/19 09:00 11/07/19 08:59 10/30/19 08:12 Minoxidil (Loniten) 5 mg DAILY GT 08/09/19 09:00 11/07/19 08:59 10/28/19 09:55 Sodium Chloride 500 ml @ 999 mls/hr Q31M PRN IV sbp<90 10/28/19 21:30 11/27/19 21:29 Sodium Chloride 1,000 ml @ 500 mls/hr Q2H PRN IVLG sbp<90 during hd 10/30/19 13:24 10/31/19 23:59 Zinc Oxide (Zinc Oxide) 1 applic EVERY 12 HOURS TOPIC 10/03/19 09:00 11/08/19 17:59 10/30/19 21:17 Last 24 Hour Vital Signs Date Time Temp Pulse Resp B/P (MAP) Pulse Ox O2 Delivery O2 Flow Rate FiO2 10/31/19 04:00 24 10/31/19 04:00 Mechanical Ventilator 10/31/19 04:00 98.0 87 15 141/86 (104) 100 10/31/19 04:00 86 10/31/19 02:32 100 16 24 10/31/19 01:00 86 10/31/19 00:00 98.2 99 15 117/71 (86) 100 10/31/19 00:00 Mechanical Ventilator 10/31/19 00:00 24 10/30/19 22:00 83 20 100 Mechanical Ventilator 24 85 21 24 10/30/19 21:00 91 107/69 10/30/19 20:00 Mechanical Ventilator 10/30/19 20:00 98.2 94 15 116/53 (74) 95 10/30/19 20:00 96 10/30/19 20:00 24 10/30/19 19:22 86 15 24 10/30/19 16:00 24 10/30/19 16:00 98.8 93 16 121/50 (73) 96 10/30/19 16:00 91 10/30/19 16:00 Mechanical Ventilator 10/30/19 15:05 82 16 24 10/30/19 12:00 69 10/30/19 12:00 Mechanical Ventilator 10/30/19 12:00 24 10/30/19 12:00 98.2 70 12 145/72 (96) 100 10/30/19 11:15 70 12 24 10/30/19 08:12 100 140/63 10/30/19 08:00 24 10/30/19 08:00 99 10/30/19 08:00 Mechanical Ventilator 10/30/19 08:00 97.7 100 15 140/63 (88) 100 10/30/19 07:30 98 14 24 10/30/19 04:00 24 10/30/19 04:00 Mechanical Ventilator 10/30/19 04:00 98.0 99 20 158/83 (108) 100 10/30/19 04:00 94 10/30/19 03:13 92 16 24 10/30/19 00:00 Mechanical Ventilator 10/30/19 00:00 97.5 72 16 145/61 (89) 100 10/29/19 23:15 69 13 24 10/29/19 21:00 24 10/29/19 20:25 78 10/29/19 20:20 83 133/60 10/29/19 20:00 97.9 83 17 130/65 (86) 100 10/29/19 20:00 Mechanical Ventilator 10/29/19 18:52 79 14 24 10/29/19 16:00 97.3 81 18 117/63 (81) 100 10/29/19 16:00 Mechanical Ventilator 10/29/19 16:00 74 10/29/19 16:00 24 10/29/19 14:50 74 13 24 10/29/19 12:00 Mechanical Ventilator 10/29/19 12:00 97.2 83 16 110/58 (75) 100 10/29/19 12:00 24 10/29/19 12:00 84 10/29/19 11:14 84 12 24 Intake and Output 10/30/19 10/31/19 19:00 07:00 Intake Total 550 ml 855 ml Output Total 50 ml 100 ml Balance 500 ml 755 ml Free Water 90 ml 360 ml IV Total 55 ml Tube Feeding 405 ml 495 ml Stool Total 50 ml 100 ml Labs Test 10/28/19 23:10 10/29/19 05:24 10/29/19 06:50 10/29/19 11:19 POC Whole Blood Glucose 240 MG/DL (74-106) 204 MG/DL (74-106) 142 MG/DL (74-106) White Blood Count 19.2 K/UL (4.8-10.8) Red Blood Count 3.87 M/UL (4.70-6.10) Hemoglobin 9.0 G/DL (14.2-18.0) Hematocrit 29.0 % (42.0-52.0) Mean Corpuscular Volume 75 FL (80-99) Mean Corpuscular Hemoglobin 23.2 PG (27.0-31.0) Mean Corpuscular Hemoglobin Concent 31.0 G/DL (32.0-36.0) Red Cell Distribution Width 16.7 % (11.6-14.8) Platelet Count 561 K/UL (150-450) Mean Platelet Volume 5.6 FL (6.5-10.1) Neutrophils (%) (Auto) % (45.0-75.0) Lymphocytes (%) (Auto) % (20.0-45.0) Monocytes (%) (Auto) % (1.0-10.0) Eosinophils (%) (Auto) % (0.0-3.0) Basophils (%) (Auto) % (0.0-2.0) Differential Total Cells Counted 100 Neutrophils % (Manual) 79 % (45-75) Lymphocytes % (Manual) 13 % (20-45) Monocytes % (Manual) 6 % (1-10) Eosinophils % (Manual) 2 % (0-3) Basophils % (Manual) 0 % (0-2) Band Neutrophils 0 % (0-8) Platelet Estimate Increased Platelet Morphology Normal Hypochromasia 1+ Anisocytosis 1+ Microcytosis 1+ Sodium Level 134 MMOL/L (136-145) Potassium Level 3.4 MMOL/L (3.5-5.1) Chloride Level 98 MMOL/L (98-107) Carbon Dioxide Level 26 MMOL/L (21-32) Anion Gap 10 mmol/L (5-15) Blood Urea Nitrogen 56 mg/dL (7-18) Creatinine 3.2 MG/DL (0.55-1.30) Estimat Glomerular Filtration Rate 18.9 mL/min (>60) Glucose Level 193 MG/DL (74-106) Calcium Level 8.8 MG/DL (8.5-10.1) Test 10/29/19 16:39 10/29/19 23:37 10/30/19 05:16 10/30/19 11:28 POC Whole Blood Glucose 178 MG/DL (74-106) 188 MG/DL (74-106) 181 MG/DL (74-106) 134 MG/DL (74-106) Test 10/30/19 16:04 10/30/19 23:41 10/31/19 02:46 10/31/19 04:53 POC Whole Blood Glucose 181 MG/DL (74-106) 202 MG/DL (74-106) White Blood Count 20.5 K/UL (4.8-10.8) Red Blood Count 3.90 M/UL (4.70-6.10) Hemoglobin 9.1 G/DL (14.2-18.0) Hematocrit 29.5 % (42.0-52.0) Mean Corpuscular Volume 76 FL (80-99) Mean Corpuscular Hemoglobin 23.3 PG (27.0-31.0) Mean Corpuscular Hemoglobin Concent 30.8 G/DL (32.0-36.0) Red Cell Distribution Width 17.0 % (11.6-14.8) Platelet Count 609 K/UL (150-450) Mean Platelet Volume 5.5 FL (6.5-10.1) Neutrophils (%) (Auto) % (45.0-75.0) Lymphocytes (%) (Auto) % (20.0-45.0) Monocytes (%) (Auto) % (1.0-10.0) Eosinophils (%) (Auto) % (0.0-3.0) Basophils (%) (Auto) % (0.0-2.0) Differential Total Cells Counted 100 Neutrophils % (Manual) 79 % (45-75) Lymphocytes % (Manual) 16 % (20-45) Monocytes % (Manual) 3 % (1-10) Eosinophils % (Manual) 2 % (0-3) Basophils % (Manual) 0 % (0-2) Band Neutrophils 0 % (0-8) Platelet Estimate Increased Platelet Morphology Normal Hypochromasia 2+ Microcytosis 2+ Erythrocyte Sedimentation Rate 110 MM/HR (0-20) Prothrombin Time 12.7 SEC (9.30-11.50) Prothromb Time International Ratio 1.2 (0.9-1.1) Activated Partial Thromboplast Time 32 SEC (23-33) Sodium Level 133 MMOL/L (136-145) Potassium Level 3.4 MMOL/L (3.5-5.1) Chloride Level 97 MMOL/L (98-107) Carbon Dioxide Level 25 MMOL/L (21-32) Anion Gap 11 mmol/L (5-15) Blood Urea Nitrogen 88 mg/dL (7-18) Creatinine 4.6 MG/DL (0.55-1.30) Estimat Glomerular Filtration Rate 12.4 mL/min (>60) Glucose Level 187 MG/DL (74-106) Calcium Level 9.2 MG/DL (8.5-10.1) Total Bilirubin 0.4 MG/DL (0.2-1.0) Aspartate Amino Transf (AST/SGOT) 52 U/L (15-37) Alanine Aminotransferase (ALT/SGPT) 56 U/L (12-78) Alkaline Phosphatase 282 U/L (46-116) C-Reactive Protein, Quantitative 14.9 mg/dL (0.00-0.90) Total Protein 8.0 G/DL (6.4-8.2) Albumin 1.9 G/DL (3.4-5.0) Globulin 6.1 g/dL Albumin/Globulin Ratio 0.3 (1.0-2.7) Amylase Level 45 U/L (25-115) Lipase 185 U/L (73-393) Height (Feet): 5 Height (Inches): 10.00 Weight (Pounds): 123 Objective Physical Exam General Appearance: nad, Chronically Ill Head: normocephalic Eyes: right eye PERRL - Will not open left eye ENT: moist mucus membranes Neck: other - submandibular mass R, fairly rigid with resistance to rotation to L, tracheotomy Respiratory: decreased breath sounds, crackles, other - pacemaker, vent+ Cardiovascular: regular rate, rhythm, edema - anasarca Gastrointestinal: non tender, distended, other - G tube Genitourinary: other Musculoskeletal: other - Contractures all extremities Neurologic: sensory intact, motor weakness, responsive Psychiatric: other Skin: Decubitus/Ulcer - Stage III right elbow, stage III left elbow, stage II sacrum, stage III scrotum, warm/dry Fitz Campos MD Oct 31, 2019 08:54
[2019-10-31] MEDS: Metoprolol Tartrate 100mg tab GT SCH ×2 (09:00→20:04)
[2019-10-31] MEDS: Minoxidil 2.5mg tab GT SCH (09:00)
[2019-10-31] MEDS: Acyclovir 200mg Cap ORAL SCH (09:57)
[2019-10-31] MEDS: Lactobacillus-GG tablet GT SCH ×2 (09:58→20:03)
--- NOTE | 2019-10-31 10:00 | NUR ---
NURSE NOTES: Started on gt feeding as ordered Nepro. No residual noted.
[2019-10-31] MEDS: Enoxaparin 30mg Inj SUBQ SCH (10:02)
[2019-10-31] MEDS: Zinc Oxide Oint 2oz TOPIC SCH ×2 (10:03→20:04)
[2019-10-31] MEDS: Colistin for inhalation INH SCH ×2 (11:09→23:11)
--- NOTE | 2019-10-31 11:25 | Diagnostic Imaging Report ---
Indication: Abdominal tenderness and pain Technique: Supine view of the abdomen Comparison: 09/25/2019 Findings: Gastrostomy. Bowel gas pattern is unremarkable. Previously demonstrated colonic distention is not evident currently. No masses or unusual calcifications. Included lower thorax demonstrates possible bilateral pleural effusions. There is a dialysis catheter present as well as pacemaker wires. Impression: No acute process
--- NOTE | 2019-10-31 11:26 | Diagnostic Imaging Report ---
Indication: Dyspnea Technique: One view of the chest Comparison: 10/23/2019 Findings: Tracheostomy, right jugular tunneled dialysis catheter, left chest pacemaker again demonstrated. Bilateral pleural effusions appear unchanged. The heart size is normal. Impression: Unchanged, as described, since prior study of 10/23/2019
--- NOTE | 2019-10-31 11:40 | NUR ---
NURSE NOTES:Handoff received from [facility]. Patient received resting in bed, no acute signs of distress noted. Patient is on ventilator tolerating ventilator settings well. Patient has Avalos catheter patent and draining, bed in the low and locked position with call light on bed next to patient. G-tube running feeding at prescribed rate. will continue to monitor patient.
--- NOTE | 2019-10-31 11:41 | Infectious Diseases Prog Note ---
"Assessment/Plan Assessment/Plan antibiotics : acyclovir 10.23.19 - cefepime inhaled colistin A 1. morganella | klebsiella pneumonia 2. respiratory failure 3. leucocytosis improving 4. COVID 19 test negative x 2 5. renal failure on HD 6. groin warts 7. fever improving P 1. d/c acyclovir 2. continue cefepime 2 more days 3. continue inhaled colistin 4. will follow up cultures Subjective ROS Limited/Unobtainable: Yes Allergies: Coded Allergies: No Known Allergies (Unverified , 06/10/19) Objective Last 24 Hour Vital Signs Date Time Temp Pulse Resp B/P (MAP) Pulse Ox O2 Delivery O2 Flow Rate FiO2 10/31/19 10:00 86 10/31/19 09:00 86 141/86 10/31/19 09:00 141/86 10/31/19 08:00 24 10/31/19 08:00 Mechanical Ventilator 10/31/19 08:00 97.9 86 15 155/69 (97) 100 10/31/19 04:00 24 10/31/19 04:00 Mechanical Ventilator 10/31/19 04:00 98.0 87 15 141/86 (104) 100 10/31/19 04:00 86 10/31/19 02:32 100 16 24 10/31/19 01:00 86 10/31/19 00:00 98.2 99 15 117/71 (86) 100 10/31/19 00:00 Mechanical Ventilator 10/31/19 00:00 24 10/30/19 22:00 83 20 100 Mechanical Ventilator 24 85 21 24 10/30/19 21:00 91 107/69 10/30/19 20:00 Mechanical Ventilator 10/30/19 20:00 98.2 94 15 116/53 (74) 95 10/30/19 20:00 96 10/30/19 20:00 24 10/30/19 19:22 86 15 24 10/30/19 16:00 24 10/30/19 16:00 98.8 93 16 121/50 (73) 96 10/30/19 16:00 91 10/30/19 16:00 Mechanical Ventilator 10/30/19 15:05 82 16 24 10/30/19 12:00 69 10/30/19 12:00 Mechanical Ventilator 10/30/19 12:00 24 10/30/19 12:00 98.2 70 12 145/72 (96) 100 Height (Feet): 5 Height (Inches): 10.00 Weight (Pounds): 123 HEENT: status post trach Respiratory/Chest: lungs clear Cardiovascular: normal rate, regular rhythm, no gallop/murmur Abdomen: soft, non tender, other - GT Extremities: no edema, other - right subclavian catheter Laboratory Tests Test 10/30/19 16:04 10/30/19 23:41 10/31/19 02:46 10/31/19 04:53 POC Whole Blood Glucose 181 MG/DL (74-106) H 202 MG/DL (74-106) H Pending White Blood Count 20.5 K/UL (4.8-10.8) H Red Blood Count 3.90 M/UL (4.70-6.10) L Hemoglobin 9.1 G/DL (14.2-18.0) L Hematocrit 29.5 % (42.0-52.0) L Mean Corpuscular Volume 76 FL (80-99) L Mean Corpuscular Hemoglobin 23.3 PG (27.0-31.0) L Mean Corpuscular Hemoglobin Concent 30.8 G/DL (32.0-36.0) L Red Cell Distribution Width 17.0 % (11.6-14.8) H Platelet Count 609 K/UL (150-450) H Mean Platelet Volume 5.5 FL (6.5-10.1) L Neutrophils (%) (Auto) % (45.0-75.0) Lymphocytes (%) (Auto) % (20.0-45.0) Monocytes (%) (Auto) % (1.0-10.0) Eosinophils (%) (Auto) % (0.0-3.0) Basophils (%) (Auto) % (0.0-2.0) Differential Total Cells Counted 100 Neutrophils % (Manual) 79 % (45-75) H Lymphocytes % (Manual) 16 % (20-45) L Monocytes % (Manual) 3 % (1-10) Eosinophils % (Manual) 2 % (0-3) Basophils % (Manual) 0 % (0-2) Band Neutrophils 0 % (0-8) Platelet Estimate Increased H Platelet Morphology Normal Hypochromasia 2+ Microcytosis 2+ Erythrocyte Sedimentation Rate 110 MM/HR (0-20) H Prothrombin Time 12.7 SEC (9.30-11.50) H Prothromb Time International Ratio 1.2 (0.9-1.1) H Activated Partial Thromboplast Time 32 SEC (23-33) Sodium Level 133 MMOL/L (136-145) L Potassium Level 3.4 MMOL/L (3.5-5.1) L Chloride Level 97 MMOL/L (98-107) L Carbon Dioxide Level 25 MMOL/L (21-32) Anion Gap 11 mmol/L (5-15) Blood Urea Nitrogen 88 mg/dL (7-18) H Creatinine 4.6 MG/DL (0.55-1.30) H Estimat Glomerular Filtration Rate 12.4 mL/min (>60) Glucose Level 187 MG/DL (74-106) H Calcium Level 9.2 MG/DL (8.5-10.1) Total Bilirubin 0.4 MG/DL (0.2-1.0) Aspartate Amino Transf (AST/SGOT) 52 U/L (15-37) H Alanine Aminotransferase (ALT/SGPT) 56 U/L (12-78) Alkaline Phosphatase 282 U/L (46-116) H C-Reactive Protein, Quantitative 14.9 mg/dL (0.00-0.90) H Total Protein 8.0 G/DL (6.4-8.2) Albumin 1.9 G/DL (3.4-5.0) L Globulin 6.1 g/dL Albumin/Globulin Ratio 0.3 (1.0-2.7) L Amylase Level 45 U/L (25-115) Lipase 185 U/L (73-393) Current Medications Medications (Trade) Dose Ordered Sig/Leonel Route PRN Reason Start Time Stop Time Status Last Admin Dose Admin Acetaminophen (Tylenol) 650 mg Q6H PRN GT Temp >100.5 10/21/19 20:45 11/20/19 20:44 10/24/19 10:25 Acyclovir (Zovirax) 400 mg Q12HR ORAL 10/23/19 13:00 11/22/19 12:59 10/31/19 09:57 Cefepime HCl 1 gm/ Dextrose 55 ml @ 110 mls/hr Q24H IVPB 10/27/19 12:00 11/03/19 11:59 10/30/19 13:35 Chlorhexidine Gluconate (Felipa-Hex 2%) 1 applic DAILY@1999 TOPIC 09/12/19 20:00 12/11/19 19:59 10/30/19 21:16 Clonidine HCl (Catapres Tab) 0.1 mg Q4H PRN GT For High Blood Pressure 09/09/19 12:30 12/08/19 05:29 09/15/19 04:10 Colistimethate Sodium (Colistin *inhalation use only*) 75 mg Q12HR@ INH 10/30/19 22:00 11/06/19 21:59 10/31/19 11:09 Dextrose (Dextrose 50%) 25 ml Q30M PRN IV Hypoglycemia 08/09/19 07:30 11/07/19 07:29 Dextrose (Dextrose 50%) 50 ml Q30M PRN IV Hypoglycemia 08/09/19 07:30 11/07/19 07:29 Enoxaparin Sodium (Lovenox) 30 mg DAILY SUBQ 10/24/19 09:00 01/22/20 08:59 10/31/19 10:02 Epoetin Andreas (Epoetin Andreas(ESRD on dialysis)) 8,000 unit WED-WED-WED SUBQ 10/25/19 21:00 01/23/20 20:59 10/30/19 21:17 Famotidine (Pepcid) 20 mg DAILY GT 08/30/19 09:00 11/28/19 08:59 10/31/19 09:57 Heparin Sodium (Porcine) (Heparin Sod 1000 units/ml 10ml) 2,000 unit ONCE PRN IV HD 10/30/19 13:24 10/31/19 23:59 Heparin Sodium (Porcine) (Heparin) 1,000 unit POSTHD PRN INJ POST HD 10/30/19 13:25 10/31/19 23:59 Insulin Aspart (NovoLOG) Q6HR SUBQ 09/25/19 18:00 11/07/19 11:29 10/31/19 06:16 Lactobacillus Acidophilus (Culturelle) 1 tab EVERY 12 HOURS GT 10/03/19 21:00 12/13/19 17:59 10/31/19 09:58 Loperamide HCl (Imodium) 2 mg Q6H PRN NG Diarrhea 10/15/19 07:45 11/14/19 07:44 Metoprolol Tartrate (Lopressor) 200 mg Q12HR GT 08/09/19 09:00 11/07/19 08:59 10/30/19 08:12 Minoxidil (Loniten) 5 mg DAILY GT 08/09/19 09:00 11/07/19 08:59 10/28/19 09:55 Sodium Chloride 500 ml @ 999 mls/hr Q31M PRN IV sbp<90 10/28/19 21:30 11/27/19 21:29 Sodium Chloride 1,000 ml @ 500 mls/hr Q2H PRN IVLG sbp<90 during hd 10/30/19 13:24 10/31/19 23:59 Zinc Oxide (Zinc Oxide) 1 applic EVERY 12 HOURS TOPIC 10/03/19 09:00 11/08/19 17:59 10/31/19 10:03 Farnaz Lyle MD Oct 31, 2019 11:41"
[2019-10-31] MEDS: Cefepime HCl 1 GM in D5W 55 ML IVPB SCH (11:42)
[2019-10-31 11:54] VITALS: BP 161/70
--- NOTE | 2019-10-31 12:00 | NUR ---
NURSE NOTES:Patient systolic BP elevated at 161 PRN BP medication not administered as patient is being dialyzed today. will continue to monitor patient.
--- NOTE | 2019-10-31 12:27 | NUR ---
CASE MANAGEMENT: REVIEW SI: SEPTIC SHOCK . ESRD on HD . PNA T 97.7 HR 86 RR 15 BP 161/70 SAT 100% MECH VENT FIO2 24 WBC 20.5 H/H 9.1/29.5 NA 133 K 3.4 IS: COLISTIN INH Q12HR CEFEPIME Q24HR EPOETIN SUBQ MWF STEP DOWN UNIT STATUS DCP: PLACEMENT PENDING. HEALTH PLAN ASSISTING WITH PLACEMENT
--- NOTE | 2019-10-31 12:40 | Nephrology Progress Note ---
Assessment/Plan Plan Septic Shock -Restarted IV Abx per ID. MOF ESRD - HD TTS + IVF boluses. Anemia of CKD -TUYET. Subjective Subjective Obtunded. Objective Objective Last 24 Hour Vital Signs Date Time Temp Pulse Resp B/P (MAP) Pulse Ox O2 Delivery O2 Flow Rate FiO2 10/31/19 11:57 Mechanical Ventilator 10/31/19 11:56 24 10/31/19 11:54 97.7 89 17 161/70 (100) 100 10/31/19 10:56 86 17 100 Mechanical Ventilator 24 86 17 24 10/31/19 10:00 86 10/31/19 09:00 86 141/86 10/31/19 09:00 141/86 10/31/19 08:00 24 10/31/19 08:00 Mechanical Ventilator 10/31/19 08:00 97.9 86 15 155/69 (97) 100 10/31/19 04:00 24 10/31/19 04:00 Mechanical Ventilator 10/31/19 04:00 98.0 87 15 141/86 (104) 100 10/31/19 04:00 86 10/31/19 02:32 100 16 24 10/31/19 01:00 86 10/31/19 00:00 98.2 99 15 117/71 (86) 100 10/31/19 00:00 Mechanical Ventilator 10/31/19 00:00 24 10/30/19 22:00 83 20 100 Mechanical Ventilator 24 85 21 24 10/30/19 21:00 91 107/69 10/30/19 20:00 Mechanical Ventilator 10/30/19 20:00 98.2 94 15 116/53 (74) 95 10/30/19 20:00 96 10/30/19 20:00 24 10/30/19 19:22 86 15 24 10/30/19 16:00 24 10/30/19 16:00 98.8 93 16 121/50 (73) 96 10/30/19 16:00 91 10/30/19 16:00 Mechanical Ventilator 10/30/19 15:05 82 16 24 Intake and Output 10/30/19 10/31/19 19:00 07:00 Intake Total 550 ml 855 ml Output Total 50 ml 100 ml Balance 500 ml 755 ml Free Water 90 ml 360 ml IV Total 55 ml Tube Feeding 405 ml 495 ml Stool Total 50 ml 100 ml Laboratory Tests 10/30/19 16:04: POC Whole Blood Glucose 181H 10/30/19 23:41: POC Whole Blood Glucose 202H 10/31/19 02:46: White Blood Count 20.5H, Red Blood Count 3.90L, Hemoglobin 9.1L, Hematocrit 29.5L, Mean Corpuscular Volume 76L, Mean Corpuscular Hemoglobin 23.3L, Mean Corpuscular Hemoglobin Concent 30.8L, Red Cell Distribution Width 17.0H, Platelet Count 609H, Mean Platelet Volume 5.5L, Neutrophils (%) (Auto) , Lymphocytes (%) (Auto) , Monocytes (%) (Auto) , Eosinophils (%) (Auto) , Baso phils (%) (Auto) , Differential Total Cells Counted 100, Neutrophils % (Manual) 79H, Lymphocytes % (Manual) 16L, Monocytes % (Manual) 3, Eosinophils % (Manual) 2, Basophils % (Manual) 0, Band Neutrophils 0, Platelet Estimate IncreasedH, Platelet Morphology Normal, Hypochromasia 2+, Microcytosis 2+, Erythrocyte Sedimentation Rate 110H, Prothrombin Time 12.7H, Prothromb Time International Ratio 1.2H, Activated Partial Thromboplast Time 32, Sodium Level 133L, Potassium Level 3.4L, Chloride Level 97L, Carbon Dioxide Level 25, Anion Gap 11, Blood Urea Nitrogen 88H, Creatinine 4.6H, Estimat Glomerular Filtration Rate 12.4, Glucose Level 187H, Calcium Level 9.2, Total Bilirubin 0.4, Aspartate Amino Transf (AST/SGOT) 52H, Alanine Aminotransferase (ALT/SGPT) 56, Alkaline Phosphatase 282H, C-Reactive Protein, Quantitative 14.9H, Total Protein 8.0, Albumin 1.9L, Globulin 6.1, Albumin/Globulin Ratio 0.3L, Amylase Level 45, Lipase 185 10/31/19 04:53: POC Whole Blood Glucose [Pending] 10/31/19 11:50: POC Whole Blood Glucose 177H Height (Feet): 5 Height (Inches): 10.00 Weight (Pounds): 123 Objective Clammy, diaphoretic CV RR Trach clean Lungs CTA Perma Cath RIJ. Abd SNT. BS + E No CCE Barely responsive Erica Pichardo MD Oct 31, 2019 12:40
--- NOTE | 2019-10-31 13:04 | NUR ---
RADIOLOGY DEPT., CHEST AND ABDOMEN X-RAYS COMPLETED.-P.DYE
--- NOTE | 2019-10-31 13:37 | NUR ---
CM NOTE CLINICAL/ H/P LABS/ DIALYSIS FS SENT TO [facility] [phone]
--- NOTE | 2019-10-31 13:47 | NUR ---
INSURANCE CLINICAL/REVIEW FAXED TO [facility] / [facility] RUSSELLM:HARPER P:[phone] x [phone] F:[phone]
--- NOTE | 2019-10-31 13:53 | NUR ---
NURSE NOTES:Patient suctioned and oral care provided, tolerated well.
--- NOTE | 2019-10-31 14:03 | Surgery Progress Note ---
Surgery Progress Note Subjective Procedure Performed Right femoral temporary hemodialysis catheter removal Additional Comments no acute events Objective Last 24 Hour Vital Signs Date Time Temp Pulse Resp B/P (MAP) Pulse Ox O2 Delivery O2 Flow Rate FiO2 10/31/19 12:00 89 10/31/19 11:57 Mechanical Ventilator 10/31/19 11:56 24 10/31/19 11:54 97.7 89 17 161/70 (100) 100 10/31/19 10:56 86 17 100 Mechanical Ventilator 24 86 17 24 10/31/19 10:00 86 10/31/19 09:00 86 141/86 10/31/19 09:00 141/86 10/31/19 08:00 24 10/31/19 08:00 Mechanical Ventilator 10/31/19 08:00 97.9 86 15 155/69 (97) 100 10/31/19 04:00 24 10/31/19 04:00 Mechanical Ventilator 10/31/19 04:00 98.0 87 15 141/86 (104) 100 10/31/19 04:00 86 10/31/19 02:32 100 16 24 10/31/19 01:00 86 10/31/19 00:00 98.2 99 15 117/71 (86) 100 10/31/19 00:00 Mechanical Ventilator 10/31/19 00:00 24 10/30/19 22:00 83 20 100 Mechanical Ventilator 24 85 21 24 10/30/19 21:00 91 107/69 10/30/19 20:00 Mechanical Ventilator 10/30/19 20:00 98.2 94 15 116/53 (74) 95 10/30/19 20:00 96 10/30/19 20:00 24 10/30/19 19:22 86 15 24 10/30/19 16:00 24 10/30/19 16:00 98.8 93 16 121/50 (73) 96 10/30/19 16:00 91 10/30/19 16:00 Mechanical Ventilator 10/30/19 15:05 82 16 24 I&O Intake and Output 10/30/19 10/31/19 19:00 07:00 Intake Total 550 ml 855 ml Output Total 50 ml 100 ml Balance 500 ml 755 ml Free Water 90 ml 360 ml IV Total 55 ml Tube Feeding 405 ml 495 ml Stool Total 50 ml 100 ml Dressing: other Wound: other Cardiovascular: RSR Respiratory: decreased breath sounds Abdomen: soft, non-tender, present bowel sounds Extremities: no cyanosis Laboratory Tests Test 10/30/19 16:04 10/30/19 23:41 10/31/19 02:46 10/31/19 04:53 POC Whole Blood Glucose 181 MG/DL (74-106) H 202 MG/DL (74-106) H Pending White Blood Count 20.5 K/UL (4.8-10.8) H Red Blood Count 3.90 M/UL (4.70-6.10) L Hemoglobin 9.1 G/DL (14.2-18.0) L Hematocrit 29.5 % (42.0-52.0) L Mean Corpuscular Volume 76 FL (80-99) L Mean Corpuscular Hemoglobin 23.3 PG (27.0-31.0) L Mean Corpuscular Hemoglobin Concent 30.8 G/DL (32.0-36.0) L Red Cell Distribution Width 17.0 % (11.6-14.8) H Platelet Count 609 K/UL (150-450) H Mean Platelet Volume 5.5 FL (6.5-10.1) L Neutrophils (%) (Auto) % (45.0-75.0) Lymphocytes (%) (Auto) % (20.0-45.0) Monocytes (%) (Auto) % (1.0-10.0) Eosinophils (%) (Auto) % (0.0-3.0) Basophils (%) (Auto) % (0.0-2.0) Differential Total Cells Counted 100 Neutrophils % (Manual) 79 % (45-75) H Lymphocytes % (Manual) 16 % (20-45) L Monocytes % (Manual) 3 % (1-10) Eosinophils % (Manual) 2 % (0-3) Basophils % (Manual) 0 % (0-2) Band Neutrophils 0 % (0-8) Platelet Estimate Increased H Platelet Morphology Normal Hypochromasia 2+ Microcytosis 2+ Erythrocyte Sedimentation Rate 110 MM/HR (0-20) H Prothrombin Time 12.7 SEC (9.30-11.50) H Prothromb Time International Ratio 1.2 (0.9-1.1) H Activated Partial Thromboplast Time 32 SEC (23-33) Sodium Level 133 MMOL/L (136-145) L Potassium Level 3.4 MMOL/L (3.5-5.1) L Chloride Level 97 MMOL/L (98-107) L Carbon Dioxide Level 25 MMOL/L (21-32) Anion Gap 11 mmol/L (5-15) Blood Urea Nitrogen 88 mg/dL (7-18) H Creatinine 4.6 MG/DL (0.55-1.30) H Estimat Glomerular Filtration Rate 12.4 mL/min (>60) Glucose Level 187 MG/DL (74-106) H Calcium Level 9.2 MG/DL (8.5-10.1) Total Bilirubin 0.4 MG/DL (0.2-1.0) Aspartate Amino Transf (AST/SGOT) 52 U/L (15-37) H Alanine Aminotransferase (ALT/SGPT) 56 U/L (12-78) Alkaline Phosphatase 282 U/L (46-116) H C-Reactive Protein, Quantitative 14.9 mg/dL (0.00-0.90) H Total Protein 8.0 G/DL (6.4-8.2) Albumin 1.9 G/DL (3.4-5.0) L Globulin 6.1 g/dL Albumin/Globulin Ratio 0.3 (1.0-2.7) L Amylase Level 45 U/L (25-115) Lipase 185 U/L (73-393) Test 10/31/19 11:50 POC Whole Blood Glucose 177 MG/DL (74-106) H Plan Problems: (1) Anemia (2) Hyponatremia (3) Leukocytosis Assessment & Plan: Tracheostomy, left chest pacemaker are again demonstrated. There is bilateral interstitial and airspace disease and bilateral pleural fluid again demonstrated. This appears more severe than on the prior study. Bilateral interstitial and airspace infiltrates versus edema. Bilateral pleural effusions Leukocytosis, anemia, tachycardia, abnormal labs. Wound evaluated and likely etiology of patient's sepsis. Leukocytosis etiology work-up antibiotics per infectious disease Appreciate nephrology input transfuse with dialysis We will follow with recommendations thank you allowing participation's care plan HD access temp HD discussed with medical teams line okay HD as per renal persistent leukocytosis flow cyto noted improving trending down right fem line removed wbc fluctuating h/h stable lft's elevated There is a right pleural effusion Gallbladder demonstrates tiny wall adherent nonmobile echogenic foci, some possible mural calcifications, and comet tail artifact in the anterior wall. Patient unable to report sonographic Kent's sign. Common bile duct measures 4 mm in diameter. No intrahepatic biliary ductal dilatation. Liver demonstrates normal echogenicity, no focal abnormality. There is some surface nodularity. Portal vein and hepatic veins are patent. Pancreas is incompletely visualized due to overlying bowel gas, visualized portions are unremarkable. Spleen is unremarkable. Left kidney measures 8.7 cm in length. Right kidney measures 8.9 cm length. Both kidneys demonstrate increased echogenicity. There is no hydronephrosis. No focal abnormality . Abdominal aorta is partially obscured by bowel gas, visualized portions are non-aneurysmal . A gastrostomy is noted Impression: Tiny wall adherent nonmobile gallbladder echogenic foci, may reflect wall adherent calculi, small polyps, and/or pleural calcifications. Anterior wall comet tail artifact suggests foci of adenomyomatosis. Normal caliber common bile duct Possible hepatic surface nodularity, could indicate cirrhotic change Echogenic kidneys, consistent with medical renal disease. No hydronephrosis Right pleural effusion Gastrostomy Note nonvisualization of portions of the pancreas and abdominal aorta HIDA NEGATIVE trend labs (4) Ventilator dependent (5) Right lower lobe pneumonia (6) Hypokalemia (7) Hyperkalemia (8) Anasarca (9) Decubitus skin ulcer Assessment & Plan: pt presented on admission with generalized edemae.Skin assessed under tracheostomy and no areas of concerns noted. GT Insertion is marginally erythematous with small amt slough at stoma. Unstageable Pressure Injury R elbow. Base of wound is 100% yellow slough,Borders are erythematous. Wound oozing small amt haemopurulent exudate.Darker skin tone without elevation in skin temp or erythema periwound. Pt's penis and scrotum are grossly edematous and enlarged and weeping serous exudate from numerous sites both from penis and scrotum. Two small open wounds noted at base of at base of shaft of penis ,and contreras aspect of scrotum. Both wounds oozing large amt sanguineous and serosanguineous exudate. Multiple open w ounds with Biofilm at base of each wounds noted to contreras/lateral,inferior and posterior aspects of scrotum. These wounds noted to be oozing moderate amts of serosanguineous exudate. Hypertrophic scar with scattered areas of hyperpigmentation noted to Sacrum. DTPI noted to L Buttocks (L)7cm x (W)9cm. Base of wound is purple and indurated.Darker skin tone without erythema,induration or fluctuance R and L ischial tuberosities. Both heels are boggy with non-blanchable erythema. potential decline given chronic illness Tx.Plan: Cleanse wound R elbow with Saline. Apply TheraHoney, Apply Moisture Barrier Paste periwound. Cover with Optifoam drsg.Change Daily and prn. Wash GT site with soap and water.Pat dry. Apply Zinc Oxide Paste to GT site Daily. Leave Open to Air. Apply Zinc Oxide Paste to entire Scrotum, Place ABD pads to R and L lateral, and posterior aspects of scrotum TWICE daily. Apply Cavilon Skin Barrier to malleoli and both Heels. Cover each site with Optifoam drsgs. Change every 7 days and prn. Reposition at least every 2hours or as tolerated. Off-load heels with Pillows. APM/BECAC Mattress overlay. (10) Malnutrition Assessment & Plan: DAILY ESTIMATED NEEDS: Needs based on Renal, critical care, wound/ 61kg 22-30 kcals/kg 5518-1012 total kcals 1.25-2 g protein/kg 76-122 g total protein Fluid per MD, now on HD NUTRITION DIAGNOSIS: * Swallowing difficulty R/T respiratory failure, dysphagia as evidenced by trach/vent dep, PEG dep * Increased kcal/prot needs R/T wound healing as evidenced by admitted w/ multiple pressure injuries including full thickness wounds at junction of Shaft of penis, dorsal scrotum, R elbow, and DTPI @ L buttocks. CURRENT TF:Osmolite 1.2 @ 60ml/hr x 20 hrs + Garo BID ENTERAL NUTRITION RECOMMENDATIONS: Vital AF 1.2 @ 60ml/hr x 20 hrs to provide 1200ml, 1440kcal, 90g prot, 973ml free water * Rec 20 hr run time for GI rest. -> W/ improved GI status, rec Vital AF 1.2, an elemental and carb controlled TF -> monitor lytes and renal fxn closely, monitor need for renal TF -> TF @ goal will provide 1642mg K and 2025mg Phos -> HOB over 30 degrees/ water flush per MD -------- Trial of Osmolite 1.2 continue for now- Goal of 60ml/hr for 20 hrs (4 hrs bowel rest) to provide 1200ml, 1440 kcal, 67g pro, 984ml free H2O, -> Rec to add prosource 1 pack daily (11g pro) to better meet est pro needs. -> Monitor BG, K closely. Pt would require increased insulin coverage as TF at goal would provide 56g more carbs per day. ADDITIONAL RECOMMENDATIONS: * Per SNF: HT=63" YL=628 lbs (vs EMR wt of 166lbs) -> obtain re-calibrated bedscale wt, rec daily wt monitoring * Wound healing: con't Nephrovite + Garo BID/ Vit C dosing per Nephro * Monitor renal fxn and lytes closely w/ non-renal TF ->K low, phos wnl;updated mag level; rec increased insulin w/ BG labs * Daily wts w/ drop to 118-20 lbs, rec to recalibrate for accurate CBW * Consider DC Miralax if medically appropriate: +rectal tube (11) Uremia (12) CKD (chronic kidney disease) stage 5, GFR less than 15 ml/min (13) Colon distention Assessment & Plan: discussed with GI likely functional as having lots of loose bm rectal tube kub f/u s/p colonoscopy - findings reviewed with GI improved cont diet as tolerated repeat KUB Marked distention of the sigmoid colon. 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 No evidence of bowel wall thickening or pneumatosis 12 mm focus of contrast enhancement in the right pectineus muscle. While nonspecific in appearance, appearance raises concern for a possible pseudoaneurysm. Ill- defined thickening of the pectus medius muscle could indicate some intramuscular hemorrhage. The above findings were phoned to Dr. Urias at the time of interpretation Large bilateral pleural effusions Hazy pulmonary parenchymal opacities as well as dense consolidative opacities most likely represent pulmonary edema, but could represent pneumonia Evidence of anasarca elsewhere, with generalized edema of the subcutaneous fat Bladder wall thickening, raises concern for cystitis. Avalos catheter in place Colonic diverticulosis. No evidence of diverticulitis. Tracheostomy Pacemaker Gastrostomy Gastrostomy again demonstrated in satisfactory position. The stomach is otherwise unremarkable. The distal esophagus and duodenum are unremarkable. Ingested contrast reaches the colon. No small bowel distention or small bowel wall thickening. Interim placement of a rectal tube. There are a few colonic diverticula. No definite evidence of acute diverticulitis. The appendix is prominent in caliber, as previously No free or loculated intraperitoneal gas or fluid is evident. Again demonstrated is marked gaseous distention of the sigmoid colon which measures up to 12.6 cm in diameter, with the proximal aspect located laterally to the distal aspect, and caliber transition in the mesenteric root of both entry points. However, there is stool within the proximal portion which appears to be at least partially contrast opacified, and no definite persisting of the vascular pedicle demonstrated. The liver, gallbladder, bile ducts, pancreas, spleen, adrenals, kidneys are unremarkable. There are accessory splenules demonstrated. No retroperitoneal or mesenteric mass or adenopathy. No pelvic mass or adenopathy. The prostate is enlarged and protrudes into the inferior bladder. The bladder is thick-walled. Previously demonstrated Avalos catheter has been removed. Again demonstrated is a large right pleural effusion and a moderate to large left pleural effusion. Again demonstrated are compressive atelectatic changes of significant portions of both lower lobes. Pacemaker wires are seen within the heart. Previously demonstrated high attenuation focus within the right pectineus muscle is not evident. However, there is a low-attenuation area which measures 2 cm diameter centrally which is not evident previously. There is diffuse edema of the subcutaneous fat. This is less severe than was demonstrated previously. There are degenerative proliferative changes of the lumbar spine. Impression: Abnormal configuration of the sigmoid colon, with marked distention of a sigmoid, inversion of the relationships of the proximal and descending colon, and evidence of immediately apposed transition point raises concern for sigmoid volvulus. However, similarity to the prior exam, presence of what appears to be contrast opacified stool within the dilated segment, and lack of evidence of twisting of the vascular pedicle raises the possibility that this is baseline for this patient or possibly dysfunctional in nature. Correlate with clinical findings Enlarged prostate with protrusion into the bladder floor. Bladder neoplasm not completely excludable as a result Thick-walled bladder, may indicate cystitis or be due to chronic bladder lumen obstruction related to the above Abnormalities right pectineus muscle, with a 2 cm central low attenuation area. Note that previous exam have a high attenuation focus suspicious for a small pseudoaneurysm. 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 Colonic diverticulosis. No evidence of diverticulitis Gastrostomy in good position Rectal tube in good position Large right and moderate to large left pleural effusions. Resultant compressive pulmonary atelectatic changes or graft edema subcutaneous fat, less severe than was demonstrated on prior 08/17/2019 exam. Jonathan Urias Oct 31, 2019 14:03
[2019-10-31 16:00] VITALS: BP 143/60
--- NOTE | 2019-10-31 18:35 | NUR ---
NURSE NOTES: Pulled the 1000U/ 1ML bolus of heparin and the [id number] in 10ML heparin for dialysis nurse Young to administer.
--- NOTE | 2019-10-31 19:05 | NUR ---
NURSE NOTES: Received report from Julio DAVEY. Patient asleep, afebrile and no respiratory distress. P responsive to name and tactile stimulation. V paced on 5 lead primer charger. On [facility] vent P8, ac 12, TV 550, FiO2 24%, peep 5. Noted also right upper chest dialysis catheter intact and asymptomatic. Dressing intact and clean. With right FA 20g IV lines intact, patent and asymptomatic. On Nephro 45cc/hr x 20 hrs via GT intact and infusing well. Hemodialysis on going right now. BP WNL. Needs were attended. HOB elevated. Bed rails are up and wheels are locked. Call light within reach. Continue plan of care.
--- NOTE | 2019-10-31 19:35 | NUR ---
NURSE HAND-OFF REPORT: Important Events on Shift:Patient received dialysis Patient Status: stable Diet: Nepro 45ML/HR Q20 hours hold between [id number] Pending Orders: Pending Results/Labs: Pending MD notification: Latest Vital Signs: Temperature 98.2 , Pulse 99 , B/P 143 /60 , Respiratory Rate 21 , O2 SAT 100 , Mechanical Ventilator, O2 Flow Rate 15.0 . Vital Sign Comment: EKG Rhythm: V-Paced Rhythm change?: N MD Notified?: N - MD Response: Latest Delacruz Fall Score: 70 Fall Risk: High Risk Safety Measures: Call light Within Reach, Bed Alarm Zone 2, Side Rails Side Rails x3, Bed position Low and Locked. Fall Precautions: Yellow Socks Yellow Gown Patient Fall Education Report given to RONEY
[2019-10-31 20:00] VITALS: BP 123/62
[2019-10-31] MEDS: Dyna-Hex 2% Top Sol 2oz TOPIC SCH (20:03)
--- NOTE | 2019-10-31 22:44 | General Progress Note ---
Subjective Cardiovascular: Denies: lightheadedness Allergies: Coded Allergies: No Known Allergies (Unverified , 06/10/19) Subjective above noted NAD on TF non communicative Objective Last 24 Hour Vital Signs Date Time Temp Pulse Resp B/P (MAP) Pulse Ox O2 Delivery O2 Flow Rate FiO2 10/31/19 20:04 104 123/62 10/31/19 20:00 24 10/31/19 20:00 98.2 104 16 123/62 (82) 100 10/31/19 20:00 Mechanical Ventilator 10/31/19 19:27 99 21 24 10/31/19 19:24 104 10/31/19 16:00 90 10/31/19 16:00 98.2 89 16 143/60 (87) 100 10/31/19 16:00 Mechanical Ventilator 10/31/19 16:00 24 10/31/19 15:17 91 17 24 10/31/19 12:00 89 10/31/19 11:57 Mechanical Ventilator 10/31/19 11:56 24 10/31/19 11:54 97.7 89 17 161/70 (100) 100 10/31/19 10:56 86 17 100 Mechanical Ventilator 24 86 17 24 10/31/19 10:00 86 10/31/19 09:00 86 141/86 10/31/19 09:00 141/86 10/31/19 08:00 24 10/31/19 08:00 Mechanical Ventilator 10/31/19 08:00 97.9 86 15 155/69 (97) 100 10/31/19 07:56 84 18 24 10/31/19 04:00 24 10/31/19 04:00 Mechanical Ventilator 10/31/19 04:00 98.0 87 15 141/86 (104) 100 10/31/19 04:00 86 10/31/19 02:32 100 16 24 10/31/19 01:00 86 10/31/19 00:00 98.2 99 15 117/71 (86) 100 10/31/19 00:00 Mechanical Ventilator 10/31/19 00:00 24 Intake and Output 10/30/19 10/31/19 19:00 07:00 Intake Total 550 ml 855 ml Output Total 50 ml 100 ml Balance 500 ml 755 ml Free Water 90 ml 360 ml IV Total 55 ml Tube Feeding 405 ml 495 ml Stool Total 50 ml 100 ml Laboratory Tests 10/30/19 23:41: POC Whole Blood Glucose 202H 10/31/19 02:46: White Blood Count 20.5H, Red Blood Count 3.90L, Hemoglobin 9.1L, Hematocrit 29.5L, Mean Corpuscular Volume 76L, Mean Corpuscular Hemoglobin 23.3L, Mean Corpuscular Hemoglobin Concent 30.8L, Red Cell Distribution Width 17.0H, Platelet Count 609H, Mean Platelet Volume 5.5L, Neutrophils (%) (Auto) , Lymphocytes (%) (Auto) , Monocytes (%) (Auto) , Eosinophils (%) (Auto) , Basophils (%) (Auto) , Differential Total Cells Counted 100, Neutrophils % (Manual) 79H, Lymphocytes % (Manual) 16L, Monocytes % (Manual) 3, Eosinophils % (Manual) 2, Basophils % (Manual) 0, Band Neutrophils 0, Platelet Estimate IncreasedH, Platelet Morphology Normal, Hypochromasia 2+, Microcytosis 2+, Erythrocyte Sedimentation Rate 110H, Prothrombin Time 12.7H, Prothromb Time International Ratio 1.2H, Activated Partial Thromboplast Time 32, Sodium Level 133L, Potassium Level 3.4L, Chloride Level 97L, Carbon Dioxide Level 25, Anion Gap 11, Blood Urea Nitrogen 88H, Creatinine 4.6H, Estimat Glomerular Filtration Rate 12.4, Glucose Level 187H, Calcium Level 9.2, Total Bilirubin 0.4, Aspartate Amino Transf (AST/SGOT) 52H, Alanine Aminotransferase (ALT/SGPT) 56, Alkaline Phosphatase 282H, C-Reactive Protein, Quantitative 14.9H, Total Protein 8.0, Albumin 1.9L, Globulin 6.1, Albumin/Globulin Ratio 0.3L, Amylase Level 45, Lipase 185 10/31/19 04:53: POC Whole Blood Glucose [Pending] 10/31/19 11:50: POC Whole Blood Glucose 177H Height (Feet): 5 Height (Inches): 10.00 Weight (Pounds): 123 Objective Debilitated AA man NCAT (+) trach coarse BS RR abd less distended, anasarca, (+) GT, (+) rectal tube ext contracted Assessment/Plan Assessment/Plan: Assessment - abdominal distention, due to colonic dysmotility, - colonoscopy negative to hepatic flexure - diarrhea - presumed TF related - abnormal LFT - ? etiology --> HIDA negative and CT negative - Anemia - leukocytosis - stool OB (+) - EGD --> gastritis - Renal failure - Anasarca - resp failure, trach - b/l pleural effusions - dysphagia, GT - encephalopathy, contracted - poor px Recommendations - continue TF - check hepatitis markers - negative - rectal tube - roll side to side as feasible (hard due to severe contractions) - Elevate HOB - f/u labs - PPI - abx - supportive care Ronny Mustafa MD Oct 31, 2019 22:43
[2019-11-01] VITALS: BP 125/65
[2019-11-01 04:00] VITALS: BP 107/60
[2019-11-01] MEDS: NovoLOG Insulin Flexpen SUBQ SCH ×4 (05:11→23:22)
--- NOTE | 2019-11-01 06:07 | NUR ---
NURSE NOTES: Pt's gown and linen were changed. Bed bath was given. Pt tolerated well. Wound dressing done. Continue top monitor the patient.
--- NOTE | 2019-11-01 07:13 | NUR ---
NURSE HAND-OFF REPORT: Important Events on Shift: None Patient Status: Stable Diet: Nephro at 45cc/hr Pending Orders: n Pending Results/Labs:cbc, bmp Pending MD notification:n Latest Vital Signs: Temperature 99.0 , Pulse 117 , B/P 107 /60 , Respiratory Rate 16 , O2 SAT 100 , Mechanical Ventilator, O2 Flow Rate 15.0 . Vital Sign Comment: EKG Rhythm: V paced w/bbb Rhythm change?: N MD Notified?: N - MD Response: Latest Delacruz Fall Score: 70 Fall Risk: High Risk Safety Measures: Call light Within Reach, Bed Alarm Zone 2, Side Rails Side Rails x3, Bed position Low and Locked. Fall Precautions: Yellow Socks Yellow Gown Patient Fall Education Report given to Srinivas Storey RN.
--- NOTE | 2019-11-01 07:15 | NUR ---
NURSE NOTES: Received report from TAMICA Wang. Patient is resting in bed, in stable condition. No s/sx of SOB, breathing is even and unlabored, on vent with vent settings. Patient is nonverbal, observed no presence of pain or discomfort at this time. Bed is in lowest position. Brakes engaged. Call light is kept within easy reach. Will continue to monitor patient.
[2019-11-01 08:00] VITALS: BP 97/60
[2019-11-01] MEDS: Minoxidil 2.5mg tab GT SCH (08:08)
[2019-11-01] MEDS: Metoprolol Tartrate 100mg tab GT SCH ×2 (08:08→20:08)
[2019-11-01] MEDS: Lactobacillus-GG tablet GT SCH ×2 (08:20→20:08)
[2019-11-01] MEDS: Zinc Oxide Oint 2oz TOPIC SCH ×2 (08:20→20:08)
--- NOTE | 2019-11-01 08:20 | NUR ---
RD ASSESSMENT & RECOMMENDATIONS SEE CARE ACTIVITY FOR COMPLETE ASSESSMENT DAILY ESTIMATED NEEDS: Needs based on Renal, critical care, wound/ 61kg 22-30 kcals/kg 7301-4620 total kcals 1.25-2 g protein/kg 76-122 g total protein Fluid per MD, now on HD NUTRITION DIAGNOSIS: * Swallowing difficulty R/T respiratory failure, dysphagia as evidenced by trach/vent dep, PEG dep * Increased kcal/prot needs R/T wound healing as evidenced by admitted w/ multiple pressure injuries including full thickness wounds at junction of Shaft of penis, dorsal scrotum, R elbow, and DTPI @ L buttocks, and now w/ DTPI wounds @ L medial hallux, L medial foot, BL heel, and partial thickness wound @ sacrum CURRENT TF:NEPRO @45ml/hr x20 hrs ENTERAL NUTRITION RECOMMENDATIONS: Nepro @45ml/hr x20 hrs + Prosource x1 qdaily to provide 900ml, 1620 kcal, 73g + 11g pro, 654 ml free H2O - Maintain Nepro @goal, as tolerated. - Add PROSOURCE qdaily (11g pro) to better meet est pro needs - Flush per MD/ HOB over 30 degrees. -> If tolerating well, would rec increase to goal of 50ml/hr x20 hrs for 1L, 1800 kcal, 81g pro, 727ml free H2O as daily wts are unclear, and continue to trend wt. ADDITIONAL RECOMMENDATIONS: * Per SNF: HT=63" KI=733 lbs (vs EMR wt of 166lbs) -> obtain re-calibrated bedscale wt, rec daily wt monitoring * Wound healing: add Nephrovite + add Garo BID/ Vit C dosing per Nephro * Monitor lytes, replete as needed (low K) * Monitor BGs, consider adding long acting insulin for improved BG control * Monitor stool output, need to change TF again-> less output .
[2019-11-01] MEDS: Enoxaparin 30mg Inj SUBQ SCH (08:21)
[2019-11-01 08:38] LABS: HEMATOCRIT 28.6 % (42.0-52.0); HEMOGLOBIN 8.8 G/DL (14.2-18.0); MEAN CORPUSCULAR VOLUME 75 FL (80-99); PLATELET COUNT 620 K/UL (150-450); RED BLOOD COUNT 3.83 M/UL (4.70-6.10); RED CELL DISTRIBUTION WIDTH 17.7 % (11.6-14.8); WHITE BLOOD COUNT 19.4 K/UL (4.8-10.8)
[2019-11-01 09:00] LABS: CALCIUM 9.2 MG/DL (8.5-10.1); POTASSIUM 3.5 MMOL/L (3.5-5.1)
--- NOTE | 2019-11-01 09:26 | Hematology/Onc Progress Note ---
Assessment/Plan Assessment/Plan Assessment/recs # Anemia due to chronic disease/kidney disease as well, gi bleed + occult + noted --> was on iron in the past, now on hold --> has been started on Epogen sq --> as per renal care --> egd done and shows gastritis --> on ppi --> egd showed gastritis, colo recently done --> hgb 9-->8. 7-->7.6-->9.2-->8.9-->9.2->9.3-->8.8->9.9-->9.2-->8.1-->8.7-->7.9-->8.6-->8.9--> 8.2->9-->9.3->8.9-->9.5-->10.6->9.2-->10->8.9--> 8.3-->8.9-->9.9-->9.3-->9-->9.3->11-->8.6->8.7>9-->8.4 --> spep ordered->wnl # Leukocytosis - with multiple infections, VRE UTI, flow is negative --> wbc trend 33-->28-->25->23->22->23->24->17.3-->17-->14->16-->15.6-->14-->14->13->19-> 18->17->22->22->19->17-->18->20-->15-->14->16-->14-->17->18-->17->15-->16-->17-> 28->19-->21-->19 --> on abx, linezolid and zosyn--> zosyn-->gent-->off-->vanc/zosyn-->cefepime/colistin --> + blood cultures with coag neg staph likely contaminated --> as per id recs --> has ordered a flow cytometry (with pathology) --> does show increased nK cell activity --> JOURDAN 2 and bcr-abl labs ordered (these are send outs)->negative --> plt 585-->613-->649-->669->663-->529-->506-->620-->720 # Elevated ddimer on admission --> duplex lower legs neg for dvt # Respiratory failure --> per pulm, s/p trach --> COVID 19 test negative x 2 # Hyperlipidemia --> statin po # Dysphagia s/p gtube with nepro --> per gi # ESRD with r fem julito --> hd as per renal # Dvt ppx lovenox sq Appreciate consultation and dw Rn Subjective Constitutional: Denies: no symptoms, chills, fever, malaise, weakness, other HEENT: Denies: no symptoms, eye pain, blurred vision, tearing, double vision, ear pain, ear discharge, nose pain, nose congestion, throat pain, throat swelling, mouth pain, mouth swelling, other Cardiovascular: Denies: no symptoms, chest pain, edema, irregular heart rate, lightheadedness, palpitations, syncope, other Genitourinary: Denies: no symptoms, burning, discharge, frequency, flank pain, hematuria, incontinence, pain, urgency, other Endocrine: Denies: no symptoms, excessive sweating, flushing, intolerance to cold, intolerance to heat, increased hunger, increased thirst, increased urine, unexplained weight gain, unexplained weight loss, other Allergies: Coded Allergies: No Known Allergies (Unverified , 06/10/19) Subjective 08/15 meds noted, no bleeding, hgb 8.8, wbc 28, path flow pending 08/16 flow pending dw pathologist, results pending, wbc 25, hgb 9 08/17 labs reviewed, meds reviewed, meds noted, no night sweats 08/19 remains obtunded, on vent/trach, no bleeding wbc 21.7 08/20 labs have been reviewed, no bleeding, wbc still elev, path reviewed 08/21 labs are noted, no bleeding, on vent, wbc better 08/22 labs noted, no bleeding, meds reviewed, wbc 24 hgb 7.6 08/23 vent, off abx, c diff negative, h/h stable 08/24 labs reviewed, on abx, wbc 17, hgb 8.9, no hemolysis 08/26 reviewed flow and is negative for leukemia, matt rn 08/27 meds reviewed, no night sweats, matt rn, no major bleeding 08/28 meds reivewed, labs noted 08/29 wbc is stable, approx 15, hgb 8.8, no hemolysis 08/30 labs are noted, is for colo today, hgb 9.9 08/31 right fem julito in place, unchanged, hgb 9.2, gi aware 09/01 labs noted, hgb 8.8, plt >600, no bleeding 09/02 labs noted, no bleeding, with elev wbc still, no new changes 09/03 meds are noted, no bleeding, labs reviewed hgb 8.6 09/04 no major events, hd as per renal, abx, no bleeding hgb low 09/05 labs are noted, no bleeding, meds have been reviewed 09/06 no new labs no hemolysis, cbc is noted, no bleeding 09/07 meds reviewed, no bleeding, matt rn, permacath functioning well 09/09 meds reviewed, wbc still elevated, as per id recs, cbc noted 09/10 is obtunded, with gutbe in place, labs reviewed 09/11 obtunded, as per id, observe now off abx, labs noted, wbc 19 09/12 cbc is pending, remains on epogen, also off abx 09/13 labs reviewed, no bleeding, elev wbc, no night sweats 09/14 meds noted, no bleeding, wbc 19, hgb 9.5, no night sweats 09/21 obtunded, remains on vent, labs noted, no bleeding, hgb 8.9 09/22 obtunded, labs noted, no bleeding, on vent, unchanged 09/23 unchanges, wbc remains elevated 20k, on abx, on vent 09/24 labs have been reviewed, no bleeding, wbc 15, may need abx 09/25 formula gtube changed, labs noted, remains obtunded, hgb 9.3 09/26 labs have been reviewed, no bleeding, matt rn, no night sweats 09/27 meds reviewed, no bleeding, wbc 14, on abx, remains obtunded 09/28 remains obtunded, no bleeding, wbc better, hgb 8.9, no hemolysis, plt 506 09/30 on colisitn, wbc elevated, cefepime added per id, hgb stable 10/01 labs reviewed, no bleeding, matt rn, no major events noted, wbc 14, hgb 10.6 10/02 labs have been noted, hgb 9.2, wbc 17, on abx, matt rn 10/03 continue on tube feeds, no bleeding, on vent, wbc remains elevated 10/04 remains ibtunded, is on a mechanical ventilator with tube feeds noted 10/05 labs are noted, hgb 8.6, wbc remains elevated, have ordered for spep 10/07 obtunded on vent, with gtube feeds, labs reviewed, matt rn 10/08 labs are noted, on vent/trach, hgb 10.2, remains obtunded 10/09 labns noted, wbc 15, hgb 8.9, remains altered, on tfs 10/10 labs noted, holding tube feeds, matt rn, hg stable 8.3 currently 10/11 remains on tfs, supportive care, labs noted, no bleeding 10/12 remains obtunded, hgb 8.9, no hemolysis is seen 10/14 labs reviewed, no bleeding, pending potential hd if rn available 10/15 is on vent, with gtube, labs reviewed, no bleeding, to get hd soon 10/16 remains on vent, matt rn at bedside, wbc 15, abx prn, plt also higher, will monitor 10/17 on vent, continue on tube feeds via gtube, labs improved 10/18 labs noted, remains on vent, and tube feeds, no major changes 10/19 nad, no bleeding, labs reviewed, no night sweats, bp elevated, cards aware 10/21 labs pending, with gtube running, on mec vent, abx off 10/22 labs reviewed, no major changes, wbc 18, plt 791k, on gtube feeds 10/23 labs reviewed, meds noted, on epogen and lovenox sq, obtunded, is nv 9.16 labs are noted, wbc 28, hgb 8.6, no hemolysis is noted 10/27 labs reviewed, on mech vent, on gtube feeds, no bleeding wbc 21 10/28 labs noted, wbc 19, plt remains elevated, hd as per renal Dr. Lang 10/29 obtunded, gt feedings on hold, wbc 19, hgb 9, no bleeding 10/30 labs reviewed, no bleeding, wbc 21, hgb 9, hd as per renal care 10/31 labs are noted, wbc 19, hgb 8.4, on vent, obtunded Objective Objective Current Medications Medications (Trade) Dose Ordered Sig/Leonel Route PRN Reason Start Time Stop Time Status Last Admin Dose Admin Acetaminophen (Tylenol) 650 mg Q6H PRN GT Temp >100.5 10/21/19 20:45 11/20/19 20:44 10/24/19 10:25 Cefepime HCl 1 gm/ Dextrose 55 ml @ 110 mls/hr Q24H IVPB 10/27/19 12:00 11/03/19 11:59 10/31/19 11:42 Chlorhexidine Gluconate (Felipa-Hex 2%) 1 applic DAILY@1999 TOPIC 09/12/19 20:00 12/11/19 19:59 10/31/19 20:03 Clonidine HCl (Catapres Tab) 0.1 mg Q4H PRN GT For High Blood Pressure 09/09/19 12:30 12/08/19 05:29 09/15/19 04:10 Colistimethate Sodium (Colistin *inhalation use only*) 75 mg Q12HR@ INH 10/30/19 22:00 11/06/19 21:59 10/31/19 23:11 Dextrose (Dextrose 50%) 25 ml Q30M PRN IV Hypoglycemia 08/09/19 07:30 11/07/19 07:29 Dextrose (Dextrose 50%) 50 ml Q30M PRN IV Hypoglycemia 08/09/19 07:30 11/07/19 07:29 Enoxaparin Sodium (Lovenox) 30 mg DAILY SUBQ 10/24/19 09:00 01/22/20 08:59 10/31/19 10:02 Epoetin Andreas (Epoetin Andreas(ESRD on dialysis)) 8,000 unit WED-WED-WED SUBQ 10/25/19 21:00 01/23/20 20:59 10/30/19 21:17 Famotidine (Pepcid) 20 mg DAILY GT 08/30/19 09:00 11/28/19 08:59 11/01/19 08:20 Insulin Aspart (NovoLOG) Q6HR SUBQ 09/25/19 18:00 11/07/19 11:29 11/01/19 05:11 Lactobacillus Acidophilus (Culturelle) 1 tab EVERY 12 HOURS GT 10/03/19 21:00 12/13/19 17:59 11/01/19 08:20 Loperamide HCl (Imodium) 2 mg Q6H PRN NG Diarrhea 10/15/19 07:45 11/14/19 07:44 Metoprolol Tartrate (Lopressor) 200 mg Q12HR GT 08/09/19 09:00 11/07/19 08:59 10/30/19 08:12 Minoxidil (Loniten) 5 mg DAILY GT 08/09/19 09:00 11/07/19 08:59 10/28/19 09:55 Sodium Chloride 500 ml @ 999 mls/hr Q31M PRN IV sbp<90 10/28/19 21:30 11/27/19 21:29 Zinc Oxide (Zinc Oxide) 1 applic EVERY 12 HOURS TOPIC 10/03/19 09:00 11/08/19 17:59 11/01/19 08:20 Last 24 Hour Vital Signs Date Time Temp Pulse Resp B/P (MAP) Pulse Ox O2 Delivery O2 Flow Rate FiO2 11/01/19 08:58 112 16 24 11/01/19 08:08 114 97/60 11/01/19 08:08 97/60 11/01/19 08:05 114 13 24 11/01/19 08:00 99.9 114 16 97/60 (72) 100 11/01/19 04:00 99.0 117 16 107/60 (76) 100 11/01/19 04:00 24 11/01/19 04:00 Mechanical Ventilator 11/01/19 03:27 116 11/01/19 03:20 114 19 24 11/01/19 00:00 98.8 117 16 125/65 (85) 100 11/01/19 00:00 Mechanical Ventilator 11/01/19 00:00 24 10/31/19 23:30 116 10/31/19 23:11 106 19 100 Mechanical Ventilator 24 107 17 24 10/31/19 20:04 104 123/62 10/31/19 20:00 24 10/31/19 20:00 98.2 104 16 123/62 (82) 100 10/31/19 20:00 Mechanical Ventilator 10/31/19 19:27 99 21 24 10/31/19 19:24 104 10/31/19 16:00 90 10/31/19 16:00 98.2 89 16 143/60 (87) 100 10/31/19 16:00 Mechanical Ventilator 10/31/19 16:00 24 10/31/19 15:17 91 17 24 10/31/19 12:00 89 10/31/19 11:57 Mechanical Ventilator 10/31/19 11:56 24 10/31/19 11:54 97.7 89 17 161/70 (100) 100 10/31/19 10:56 86 17 100 Mechanical Ventilator 24 86 17 24 10/31/19 10:00 86 10/31/19 09:00 86 141/86 10/31/19 09:00 141/86 10/31/19 08:00 24 10/31/19 08:00 Mechanical Ventilator 10/31/19 08:00 97.9 86 15 155/69 (97) 100 10/31/19 07:56 84 18 24 10/31/19 04:00 24 10/31/19 04:00 Mechanical Ventilator 10/31/19 04:00 98.0 87 15 141/86 (104) 100 10/31/19 04:00 86 10/31/19 02:32 100 16 24 10/31/19 01:00 86 10/31/19 00:00 98.2 99 15 117/71 (86) 100 10/31/19 00:00 Mechanical Ventilator 10/31/19 00:00 24 10/30/19 22:00 83 20 100 Mechanical Ventilator 24 85 21 24 10/30/19 21:00 91 107/69 10/30/19 20:00 Mechanical Ventilator 10/30/19 20:00 98.2 94 15 116/53 (74) 95 10/30/19 20:00 96 10/30/19 20:00 24 10/30/19 19:22 86 15 24 10/30/19 16:00 24 10/30/19 16:00 98.8 93 16 121/50 (73) 96 10/30/19 16:00 91 10/30/19 16:00 Mechanical Ventilator 10/30/19 15:05 82 16 24 10/30/19 12:00 69 10/30/19 12:00 Mechanical Ventilator 10/30/19 12:00 24 10/30/19 12:00 98.2 70 12 145/72 (96) 100 10/30/19 11:15 70 12 24 Intake and Output 10/31/19 11/01/19 18:59 06:59 Intake Total 370 ml 525 ml Output Total 2000 ml Balance 370 ml -1475 ml Free Water 100 ml 30 ml Tube Feeding 270 ml 495 ml Hemodialysis UF 2000 ml Labs Test 10/29/19 11:19 10/29/19 16:39 10/29/19 23:37 10/30/19 05:16 POC Whole Blood Glucose 142 MG/DL (74-106) 178 MG/DL (74-106) 188 MG/DL (74-106) 181 MG/DL (74-106) Test 10/30/19 11:28 10/30/19 16:04 10/30/19 23:41 10/31/19 02:46 POC Whole Blood Glucose 134 MG/DL (74-106) 181 MG/DL (74-106) 202 MG/DL (74-106) White Blood Count 20.5 K/UL (4.8-10.8) Red Blood Count 3.90 M/UL (4.70-6.10) Hemoglobin 9.1 G/DL (14.2-18.0) Hematocrit 29.5 % (42.0-52.0) Mean Corpuscular Volume 76 FL (80-99) Mean Corpuscular Hemoglobin 23.3 PG (27.0-31.0) Mean Corpuscular Hemoglobin Concent 30.8 G/DL (32.0-36.0) Red Cell Distribution Width 17.0 % (11.6-14.8) Platelet Count 609 K/UL (150-450) Mean Platelet Volume 5.5 FL (6.5-10.1) Neutrophils (%) (Auto) % (45.0-75.0) Lymphocytes (%) (Auto) % (20.0-45.0) Monocytes (%) (Auto) % (1.0-10.0) Eosinophils (%) (Auto) % (0.0-3.0) Basophils (%) (Auto) % (0.0-2.0) Differential Total Cells Counted 100 Neutrophils % (Manual) 79 % (45-75) Lymphocytes % (Manual) 16 % (20-45) Monocytes % (Manual) 3 % (1-10) Eosinophils % (Manual) 2 % (0-3) Basophils % (Manual) 0 % (0-2) Band Neutrophils 0 % (0-8) Platelet Estimate Increased Platelet Morphology Normal Hypochromasia 2+ Microcytosis 2+ Erythrocyte Sedimentation Rate 110 MM/HR (0-20) Prothrombin Time 12.7 SEC (9.30-11.50) Prothromb Time International Ratio 1.2 (0.9-1.1) Activated Partial Thromboplast Time 32 SEC (23-33) Sodium Level 133 MMOL/L (136-145) Potassium Level 3.4 MMOL/L (3.5-5.1) Chloride Level 97 MMOL/L (98-107) Carbon Dioxide Level 25 MMOL/L (21-32) Anion Gap 11 mmol/L (5-15) Blood Urea Nitrogen 88 mg/dL (7-18) Creatinine 4.6 MG/DL (0.55-1.30) Estimat Glomerular Filtration Rate 12.4 mL/min (>60) Glucose Level 187 MG/DL (74-106) Calcium Level 9.2 MG/DL (8.5-10.1) Total Bilirubin 0.4 MG/DL (0.2-1.0) Aspartate Amino Transf (AST/SGOT) 52 U/L (15-37) Alanine Aminotransferase (ALT/SGPT) 56 U/L (12-78) Alkaline Phosphatase 282 U/L (46-116) C-Reactive Protein, Quantitative 14.9 mg/dL (0.00-0.90) Total Protein 8.0 G/DL (6.4-8.2) Albumin 1.9 G/DL (3.4-5.0) Globulin 6.1 g/dL Albumin/Globulin Ratio 0.3 (1.0-2.7) Amylase Level 45 U/L (25-115) Lipase 185 U/L (73-393) Test 10/31/19 04:53 10/31/19 11:50 10/31/19 23:15 11/01/19 05:02 POC Whole Blood Glucose 177 MG/DL (74-106) 241 MG/DL (74-106) 234 MG/DL (74-106) Test 11/01/19 08:15 White Blood Count 19.4 K/UL (4.8-10.8) Red Blood Count 3.83 M/UL (4.70-6.10) Hemoglobin 8.8 G/DL (14.2-18.0) Hematocrit 28.6 % (42.0-52.0) Mean Corpuscular Volume 75 FL (80-99) Mean Corpuscular Hemoglobin 22.9 PG (27.0-31.0) Mean Corpuscular Hemoglobin Concent 30.6 G/DL (32.0-36.0) Red Cell Distribution Width 17.7 % (11.6-14.8) Platelet Count 620 K/UL (150-450) Mean Platelet Volume 5.6 FL (6.5-10.1) Neutrophils (%) (Auto) % (45.0-75.0) Lymphocytes (%) (Auto) % (20.0-45.0) Monocytes (%) (Auto) % (1.0-10.0) Eosinophils (%) (Auto) % (0.0-3.0) Basophils (%) (Auto) % (0.0-2.0) Sodium Level 136 MMOL/L (136-145) Potassium Level 3.5 MMOL/L (3.5-5.1) Chloride Level 99 MMOL/L (98-107) Carbon Dioxide Level 26 MMOL/L (21-32) Anion Gap 11 mmol/L (5-15) Blood Urea Nitrogen 51 mg/dL (7-18) Creatinine 3.0 MG/DL (0.55-1.30) Estimat Glomerular Filtration Rate 20.3 mL/min (>60) Glucose Level 181 MG/DL (74-106) Calcium Level 9.2 MG/DL (8.5-10.1) Height (Feet): 5 Height (Inches): 10.00 Weight (Pounds): 123 Objective Physical Exam General Appearance: nad, Chronically Ill Head: normocephalic Eyes: right eye PERRL - Will not open left eye ENT: moist mucus membranes Neck: other - submandibular mass R, fairly rigid with resistance to rotation to L, tracheotomy Respiratory: decreased breath sounds, crackles, other - pacemaker, vent+ Cardiovascular: regular rate, rhythm, edema - anasarca Gastrointestinal: non tender, distended, other - G tube Genitourinary: other Musculoskeletal: other - Contractures all extremities Neurologic: sensory intact, motor weakness, responsive Psychiatric: other Skin: Decubitus/Ulcer - Stage III right elbow, stage III left elbow, stage II sacrum, stage III scrotum, warm/dry Fitz Campos MD Nov 01, 2019 09:26
[2019-11-01] MEDS: Colistin for inhalation INH SCH ×2 (10:42→22:26)
--- NOTE | 2019-11-01 11:31 | Infectious Diseases Prog Note ---
"Assessment/Plan Assessment/Plan antibiotics : acyclovir 10.23.19 - cefepime inhaled colistin A 1. morganella | klebsiella pneumonia 2. respiratory failure 3. leucocytosis improving 4. COVID 19 test negative x 2 5. renal failure on HD 6. groin warts 7. fever improving P 1. continue cefepime 1 more day 2. continue inhaled colistin 4 more days 3. will follow up cultures Subjective ROS Limited/Unobtainable: Yes Allergies: Coded Allergies: No Known Allergies (Unverified , 06/10/19) Objective Last 24 Hour Vital Signs Date Time Temp Pulse Resp B/P (MAP) Pulse Ox O2 Delivery O2 Flow Rate FiO2 11/01/19 11:15 91 15 100 Mechanical Ventilator 24 95 14 24 11/01/19 08:58 112 16 24 11/01/19 08:08 114 97/60 11/01/19 08:08 97/60 11/01/19 08:05 114 13 24 11/01/19 08:00 115 11/01/19 08:00 Mechanical Ventilator 11/01/19 08:00 99.9 114 16 97/60 (72) 100 11/01/19 08:00 24 11/01/19 04:00 99.0 117 16 107/60 (76) 100 11/01/19 04:00 24 11/01/19 04:00 Mechanical Ventilator 11/01/19 03:27 116 11/01/19 03:20 114 19 24 11/01/19 00:00 98.8 117 16 125/65 (85) 100 11/01/19 00:00 Mechanical Ventilator 11/01/19 00:00 24 10/31/19 23:30 116 10/31/19 23:11 106 19 100 Mechanical Ventilator 24 107 17 24 10/31/19 20:04 104 123/62 10/31/19 20:00 24 10/31/19 20:00 98.2 104 16 123/62 (82) 100 10/31/19 20:00 Mechanical Ventilator 10/31/19 19:27 99 21 24 10/31/19 19:24 104 10/31/19 16:00 90 10/31/19 16:00 98.2 89 16 143/60 (87) 100 10/31/19 16:00 Mechanical Ventilator 10/31/19 16:00 24 9/22/20 15:17 91 17 24 10/31/19 12:00 89 10/31/19 11:57 Mechanical Ventilator 10/31/19 11:56 24 10/31/19 11:54 97.7 89 17 161/70 (100) 100 Height (Feet): 5 Height (Inches): 10.00 Weight (Pounds): 123 HEENT: status post trach Respiratory/Chest: lungs clear Cardiovascular: normal rate, regular rhythm, no gallop/murmur Abdomen: soft, non tender, other - GT Extremities: no edema, other - right subclavian catheter Laboratory Tests Test 10/31/19 11:50 10/31/19 23:15 11/01/19 05:02 11/01/19 08:15 POC Whole Blood Glucose 177 MG/DL (74-106) H 241 MG/DL (74-106) H 234 MG/DL (74-106) H White Blood Count 19.4 K/UL (4.8-10.8) H Red Blood Count 3.83 M/UL (4.70-6.10) L Hemoglobin 8.8 G/DL (14.2-18.0) L Hematocrit 28.6 % (42.0-52.0) L Mean Corpuscular Volume 75 FL (80-99) L Mean Corpuscular Hemoglobin 22.9 PG (27.0-31.0) L Mean Corpuscular Hemoglobin Concent 30.6 G/DL (32.0-36.0) L Red Cell Distribution Width 17.7 % (11.6-14.8) H Platelet Count 620 K/UL (150-450) H Mean Platelet Volume 5.6 FL (6.5-10.1) L Neutrophils (%) (Auto) % (45.0-75.0) Lymphocytes (%) (Auto) % (20.0-45.0) Monocytes (%) (Auto) % (1.0-10.0) Eosinophils (%) (Auto) % (0.0-3.0) Basophils (%) (Auto) % (0.0-2.0) Differential Total Cells Counted 100 Neutrophils % (Manual) 67 % (45-75) Lymphocytes % (Manual) 13 % (20-45) L Monocytes % (Manual) 8 % (1-10) Eosinophils % (Manual) 11 % (0-3) H Basophils % (Manual) 1 % (0-2) Band Neutrophils 0 % (0-8) Platelet Estimate Increased H Platelet Morphology Normal Anisocytosis 1+ Sodium Level 136 MMOL/L (136-145) Potassium Level 3.5 MMOL/L (3.5-5.1) Chloride Level 99 MMOL/L (98-107) Carbon Dioxide Level 26 MMOL/L (21-32) Anion Gap 11 mmol/L (5-15) Blood Urea Nitrogen 51 mg/dL (7-18) H Creatinine 3.0 MG/DL (0.55-1.30) H Estimat Glomerular Filtration Rate 20.3 mL/min (>60) Glucose Level 181 MG/DL (74-106) H Calcium Level 9.2 MG/DL (8.5-10.1) Current Medications Medications (Trade) Dose Ordered Sig/Leonel Route PRN Reason Start Time Stop Time Status Last Admin Dose Admin Acetaminophen (Tylenol) 650 mg Q6H PRN GT Temp >100.5 10/21/19 20:45 11/20/19 20:44 10/24/19 10:25 Cefepime HCl 1 gm/ Dextrose 55 ml @ 110 mls/hr Q24H IVPB 10/27/19 12:00 11/03/19 11:59 10/31/19 11:42 Chlorhexidine Gluconate (Felipa-Hex 2%) 1 applic DAILY@1999 TOPIC 09/12/19 20:00 12/11/19 19:59 10/31/19 20:03 Clonidine HCl (Catapres Tab) 0.1 mg Q4H PRN GT For High Blood Pressure 09/09/19 12:30 12/08/19 05:29 09/15/19 04:10 Colistimethate Sodium (Colistin *inhalation use only*) 75 mg Q12HR@ INH 10/30/19 22:00 11/06/19 21:59 11/01/19 10:42 Dextrose (Dextrose 50%) 25 ml Q30M PRN IV Hypoglycemia 08/09/19 07:30 11/07/19 07:29 Dextrose (Dextrose 50%) 50 ml Q30M PRN IV Hypoglycemia 08/09/19 07:30 11/07/19 07:29 Enoxaparin Sodium (Lovenox) 30 mg DAILY SUBQ 10/24/19 09:00 01/22/20 08:59 10/31/19 10:02 Epoetin Andreas (Epoetin Andreas(ESRD on dialysis)) 8,000 unit WED-WED-WED SUBQ 10/25/19 21:00 01/23/20 20:59 10/30/19 21:17 Famotidine (Pepcid) 20 mg DAILY GT 08/30/19 09:00 11/28/19 08:59 11/01/19 08:20 Insulin Aspart (NovoLOG) Q6HR SUBQ 09/25/19 18:00 11/07/19 11:29 11/01/19 05:11 Lactobacillus Acidophilus (Culturelle) 1 tab EVERY 12 HOURS GT 10/03/19 21:00 12/13/19 17:59 11/01/19 08:20 Loperamide HCl (Imodium) 2 mg Q6H PRN NG Diarrhea 10/15/19 07:45 11/14/19 07:44 Metoprolol Tartrate (Lopressor) 200 mg Q12HR GT 08/09/19 09:00 11/07/19 08:59 10/30/19 08:12 Minoxidil (Loniten) 5 mg DAILY GT 08/09/19 09:00 11/07/19 08:59 10/28/19 09:55 Sodium Chloride 500 ml @ 999 mls/hr Q31M PRN IV sbp<90 10/28/19 21:30 11/27/19 21:29 Zinc Oxide (Zinc Oxide) 1 applic EVERY 12 HOURS TOPIC 10/03/19 09:00 11/08/19 17:59 11/01/19 08:20 Farnaz Lyle MD Nov 01, 2019 11:31"
[2019-11-01 12:00] VITALS: BP 115/53
[2019-11-01] MEDS: Cefepime HCl 1 GM in D5W 55 ML IVPB SCH (12:07)
[2019-11-01] MEDS ORDERED: NS 275ml ONE ×3 (13:05→22:26)
[2019-11-01] MEDS ORDERED: Tubing IV Secondary IV ONE ×3 (13:05→22:26)
--- NOTE | 2019-11-01 13:19 | Nephrology Progress Note ---
Assessment/Plan Plan Septic Shock -Restarted IV Abx per ID. MOF ESRD - HD TTS + IVF boluses. Anemia of CKD -TUYET. Subjective Subjective Obtunded. Objective Objective Last 24 Hour Vital Signs Date Time Temp Pulse Resp B/P (MAP) Pulse Ox O2 Delivery O2 Flow Rate FiO2 11/01/19 12:49 91 14 24 11/01/19 12:00 Mechanical Ventilator 11/01/19 12:00 98.1 94 16 115/53 (73) 100 11/01/19 12:00 24 11/01/19 11:15 91 15 100 Mechanical Ventilator 24 95 14 24 11/01/19 08:58 112 16 24 11/01/19 08:08 114 97/60 11/01/19 08:08 97/60 11/01/19 08:05 114 13 24 11/01/19 08:00 115 11/01/19 08:00 Mechanical Ventilator 11/01/19 08:00 99.9 114 16 97/60 (72) 100 11/01/19 08:00 24 11/01/19 04:00 99.0 117 16 107/60 (76) 100 11/01/19 04:00 24 11/01/19 04:00 Mechanical Ventilator 11/01/19 03:27 116 11/01/19 03:20 114 19 24 11/01/19 00:00 98.8 117 16 125/65 (85) 100 11/01/19 00:00 Mechanical Ventilator 11/01/19 00:00 24 10/31/19 23:30 116 10/31/19 23:11 106 19 100 Mechanical Ventilator 24 107 17 24 10/31/19 20:04 104 123/62 10/31/19 20:00 24 10/31/19 20:00 98.2 104 16 123/62 (82) 100 10/31/19 20:00 Mechanical Ventilator 10/31/19 19:27 99 21 24 10/31/19 19:24 104 10/31/19 16:00 90 10/31/19 16:00 98.2 89 16 143/60 (87) 100 10/31/19 16:00 Mechanical Ventilator 10/31/19 16:00 24 10/31/19 15:17 91 17 24 Intake and Output 10/31/19 11/01/19 19:00 07:00 Intake Total 370 ml 525 ml Output Total 2000 ml Balance 370 ml -1475 ml Free Water 100 ml 30 ml Tube Feeding 270 ml 495 ml Hemodialysis UF 2000 ml Laboratory Tests 10/31/19 23:15: POC Whole Blood Glucose 241H 11/01/19 05:02: POC Whole Blood Glucose 234H 11/01/19 08:15: White Blood Count 19.4H, Red Blood Count 3.83L, Hemoglobin 8.8L, Hematocrit 28.6L, Mean Corpuscular Volume 75L, Mean Corpuscular Hemoglobin 22.9L, Mean Corpuscular Hemoglobin Concent 30.6L, Red Cell Distribution Width 17.7H, Platelet Count 620H, Mean Platelet Volume 5.6L, Neutrophils (%) (Auto) , Lymphocytes (%) (Auto) , Monocytes (%) (Auto) , Eosinophils (%) (Auto) , Basophils (%) (Auto) , Differential Total Cells Counted 100, Neutrophils % (Manual) 67, Lymphocytes % (Manual) 13L, Monocytes % (Manual) 8, Eosinophils % (Manual) 11H, Basophils % (Manual) 1, Band Neutrophils 0, Platelet Estimate IncreasedH, Platelet Morphology Normal, Anisocytosis 1+, Sodium Level 136, Potassium Level 3.5, Chloride Level 99, Carbon Dioxide Level 26, Anion Gap 11, Blood Urea Nitrogen 51H, Creatinine 3.0H, Estimat Glomerular Filtration Rate 20.3, Glucose Level 181H, Calcium Level 9.2 11/01/19 11:33: POC Whole Blood Glucose 143H Height (Feet): 5 Height (Inches): 10.00 Weight (Pounds): 123 Objective Clammy, diaphoretic CV RR Trach clean Lungs CTA Perma Cath RIJ. Abd SNT. BS + E No CCE Barely responsive Erica Pichardo MD Nov 01, 2019 13:19
--- NOTE | 2019-11-01 14:37 | NUR ---
CASE MANAGEMENT: REVIEW SI: SEPTIC SHOCK . ESRD on HD . PNA T 98.1 HR 114 RR 16 BP 97/60 SAT 100% MECH VENT FIO2 24 WBC 19.4 H/H 8.8/28.6 BUN 51 CR 3.0 IS: COLISTIN INH Q12HR CEFEPIME Q24HR EPOETIN SUBQ MWF STEP DOWN UNIT STATUS DCP: PLACEMENT PENDING. HEALTH PLAN ASSISTING WITH PLACEMENT
--- NOTE | 2019-11-01 15:00 | NUR ---
NURSE NOTES: Patient is on hemodialysis, creatinine noted at 3.0 today. Patient is on Lovenox SQ daily ordered by Dr. Campos. Contacted and informed Dr. Campos of assessments, Dr. Campos acknowledged and ordered to discontinue Lovenox. Order entered, noted, and carried out. Will continue to monitor patient.
--- NOTE | 2019-11-01 15:59 | Surgery Progress Note ---
Surgery Progress Note Subjective Procedure Performed Right femoral temporary hemodialysis catheter removal Symptoms: tolerating diet, passing flatus, BM Objective Last 24 Hour Vital Signs Date Time Temp Pulse Resp B/P (MAP) Pulse Ox O2 Delivery O2 Flow Rate FiO2 11/01/19 12:49 91 14 24 11/01/19 12:00 Mechanical Ventilator 11/01/19 12:00 98.1 94 16 115/53 (73) 100 11/01/19 12:00 24 11/01/19 11:15 91 15 100 Mechanical Ventilator 24 95 14 24 11/01/19 08:58 112 16 24 11/01/19 08:08 114 97/60 11/01/19 08:08 97/60 11/01/19 08:05 114 13 24 11/01/19 08:00 115 11/01/19 08:00 Mechanical Ventilator 11/01/19 08:00 99.9 114 16 97/60 (72) 100 11/01/19 08:00 24 11/01/19 04:00 99.0 117 16 107/60 (76) 100 11/01/19 04:00 24 11/01/19 04:00 Mechanical Ventilator 11/01/19 03:27 116 11/01/19 03:20 114 19 24 11/01/19 00:00 98.8 117 16 125/65 (85) 100 11/01/19 00:00 Mechanical Ventilator 11/01/19 00:00 24 10/31/19 23:30 116 10/31/19 23:11 106 19 100 Mechanical Ventilator 24 107 17 24 10/31/19 20:04 104 123/62 10/31/19 20:00 24 10/31/19 20:00 98.2 104 16 123/62 (82) 100 10/31/19 20:00 Mechanical Ventilator 10/31/19 19:27 99 21 24 10/31/19 19:24 104 10/31/19 16:00 90 10/31/19 16:00 98.2 89 16 143/60 (87) 100 10/31/19 16:00 Mechanical Ventilator 10/31/19 16:00 24 I&O Intake and Output 10/31/19 11/01/19 19:00 07:00 Intake Total 370 ml 525 ml Output Total 2000 ml Balance 370 ml -1475 ml Free Water 100 ml 30 ml Tube Feeding 270 ml 495 ml Hemodialysis UF 2000 ml Dressing: saturated Cardiovascular: RSR Respiratory: decreased breath sounds Abdomen: soft, present bowel sounds Extremities: no tenderness, no cyanosis Laboratory Tests Test 10/31/19 23:15 11/01/19 05:02 11/01/19 08:15 11/01/19 11:33 POC Whole Blood Glucose 241 MG/DL (74-106) H 234 MG/DL (74-106) H 143 MG/DL (74-106) H White Blood Count 19.4 K/UL (4.8-10.8) H Red Blood Count 3.83 M/UL (4.70-6.10) L Hemoglobin 8.8 G/DL (14.2-18.0) L Hematocrit 28.6 % (42.0-52.0) L Mean Corpuscular Volume 75 FL (80-99) L Mean Corpuscular Hemoglobin 22.9 PG (27.0-31.0) L Mean Corpuscular Hemoglobin Concent 30.6 G/DL (32.0-36.0) L Red Cell Distribution Width 17.7 % (11.6-14.8) H Platelet Count 620 K/UL (150-450) H Mean Platelet Volume 5.6 FL (6.5-10.1) L Neutrophils (%) (Auto) % (45.0-75.0) Lymphocytes (%) (Auto) % (20.0-45.0) Monocytes (%) (Auto) % (1.0-10.0) Eosinophils (%) (Auto) % (0.0-3.0) Basophils (%) (Auto) % (0.0-2.0) Differential Total Cells Counted 100 Neutrophils % (Manual) 67 % (45-75) Lymphocytes % (Manual) 13 % (20-45) L Monocytes % (Manual) 8 % (1-10) Eosinophils % (Manual) 11 % (0-3) H Basophils % (Manual) 1 % (0-2) Band Neutrophils 0 % (0-8) Platelet Estimate Increased H Platelet Morphology Normal Anisocytosis 1+ Sodium Level 136 MMOL/L (136-145) Potassium Level 3.5 MMOL/L (3.5-5.1) Chloride Level 99 MMOL/L (98-107) Carbon Dioxide Level 26 MMOL/L (21-32) Anion Gap 11 mmol/L (5-15) Blood Urea Nitrogen 51 mg/dL (7-18) H Creatinine 3.0 MG/DL (0.55-1.30) H Estimat Glomerular Filtration Rate 20.3 mL/min (>60) Glucose Level 181 MG/DL (74-106) H Calcium Level 9.2 MG/DL (8.5-10.1) Plan Problems: (1) Anemia (2) Hyponatremia (3) Leukocytosis Assessment & Plan: Tracheostomy, left chest pacemaker are again demonstrated. There is bilateral interstitial and airspace disease and bilateral pleural fluid again demonstrated. This appears more severe than on the prior study. Bilateral interstitial and airspace infiltrates versus edema. Bilateral pleural effusions Leukocytosis, anemia, tachycardia, abnormal labs. Wound evaluated and likely etiology of patient's sepsis. Leukocytosis etiology work-up antibiotics per infectious disease Appreciate nephrology input transfuse with dialysis We will follow with recommendations thank you allowing participation's care plan HD access temp HD discussed with medical teams line okay HD as per renal persistent leukocytosis flow cyto noted improving trending down right fem line removed wbc fluctuating h/h stable lft's elevated There is a right pleural effusion Gallbladder demonstrates tiny wall adherent nonmobile echogenic foci, some possible mural calcifications, and comet tail artifact in the anterior wall. Patient unable to report sonographic Kent's sign. Common bile duct measures 4 mm in diameter. No intrahepatic biliary ductal dilatation. Liver demonstrates normal echogenicity, no focal abnormality. There is some surface nodularity. Portal vein and hepatic veins are patent. Pancreas is incompletely visualized due to overlying bowel gas, visualized portions are unremarkable. Spleen is unremarkable. Left kidney measures 8.7 cm in length. Right kidney measures 8.9 cm length. Both kidneys demonstrate increased echogenicity. There is no hydronephrosis. No focal abnormality . Abdominal aorta is partially obscured by bowel gas, visualized portions are non-aneurysmal . A gastrostomy is noted Impression: Tiny wall adherent nonmobile gallbladder echogenic foci, may reflect wall adherent calculi, small polyps, and/or pleural calcifications. Anterior wall comet tail artifact suggests foci of adenomyomatosis. Normal caliber common bile duct Possible hepatic surface nodularity, could indicate cirrhotic change Echogenic kidneys, consistent with medical renal disease. No hydronephrosis Right pleural effusion Gastrostomy Note nonvisualization of portions of the pancreas and abdominal aorta HIDA NEGATIVE trend labs (4) Ventilator dependent (5) Right lower lobe pneumonia (6) Hypokalemia (7) Hyperkalemia (8) Anasarca (9) Decubitus skin ulcer Assessment & Plan: pt presented on admission with generalized edemae.Skin assessed under tracheostomy and no areas of concerns noted. GT Insertion is marginally erythematous with small amt slough at stoma. Unstageable Pressure Injury R elbow. Base of wound is 100% yellow slough,Borders are erythematous. Wound oozing small amt haemopurulent exudate.Darker skin tone without elevation in skin temp or erythema periwound. Pt's penis and scrotum are grossly edematous and enlarged and weeping serous exudate from numerous sites both from penis and scrotum. Two small open wounds noted at base of at base of shaft of penis ,and contreras aspect of scrotum. Both wounds oozing large amt sanguineous and serosanguineous exudate. Multiple open wounds with Biofilm at base of each wounds noted to contreras/lateral,inferior and posterior aspects of scrotum. These wounds noted to be oozing moderate amts of serosanguineous exudate. Hypertrophic scar with scattered areas of hyperpigmentation noted to Sacrum. DTPI noted to L Buttocks (L)7cm x (W)9cm. Base of wound is purple and indurated.Darker skin tone without erythema,induration or fluctuance R and L ischial tuberosities. Both heels are boggy with non-blanchable erythema. potential decline given chronic illness Tx.Plan: Cleanse wound R elbow with Saline. Apply TheraHoney, Apply Moisture Barrier Paste periwound. Cover with Optifoam drsg.Change Daily and prn. Wash GT site with soap and water.Pat dry. Apply Zinc Oxide Paste to GT site Daily. Leave Open to Air. Apply Zinc Oxide Paste to entire Scrotum, Place ABD pads to R and L lateral, and posterior aspects of scrotum TWICE daily. Apply Cavilon Skin Barrier to malleoli and both Heels. Cover each site with Optifoam drsgs. Change every 7 days and prn. Reposition at least every 2hours or as tolerated. Off-load heels with Pillows. APM/BECCA Mattress overlay. (10) Malnutrition Assessment & Plan: DAILY ESTIMATED NEEDS: Needs based on Renal, critical care, wound/ 61kg 22-30 kcals/kg 4978-2548 total kcals 1.25-2 g protein/kg 76-122 g total protein Fluid per MD, now on HD NUTRITION DIAGNOSIS: * Swallowing difficulty R/T respiratory failure, dysphagia as evidenced by trach/vent dep, PEG dep * Increased kcal/prot needs R/T wound healing as evidenced by admitted w/ multiple pressure injuries including full thickness wounds at junction of Shaft of penis, dorsal scrotum, R elbow, and DTPI @ L buttocks. CURRENT TF:Osmolite 1.2 @ 60ml/hr x 20 hrs + Garo BID ENTERAL NUTRITION RECOMMENDATIONS: Vital AF 1.2 @ 60ml/hr x 20 hrs to provide 1200ml, 1440kcal, 90g prot, 973ml free water * Rec 20 hr run time for GI rest. -> W/ improved GI status, rec Vital AF 1.2, an elemental and carb controlled TF -> monitor lytes and renal fxn closely, monitor need for renal TF -> TF @ goal will provide 1642mg K and 2025mg Phos -> HOB over 30 degrees/ water flush per MD -------- Trial of Osmolite 1.2 continue for now- Goal of 60ml/hr for 20 hrs (4 hrs bowel rest) to provide 1200ml, 1440 kcal, 67g pro, 984ml free H2O, -> Rec to add prosource 1 pack daily (11g pro) to better meet est pro needs. -> Monitor BG, K closely. Pt would require increased insulin coverage as TF at goal would provide 56g more carbs per day. ADDITIONAL RECOMMENDATIONS: * Per SNF: HT=63" FI=932 lbs (vs EMR wt of 166lbs) -> obtain re-calibrated bedscale wt, rec daily wt monitoring * Wound healing: con't Nephrovite + Garo BID/ Vit C dosing per Nephro * Monitor renal fxn and lytes closely w/ non-renal TF ->K low, phos wnl;updated mag level; rec increased insulin w/ BG labs * Daily wts w/ drop to 118-20 lbs, rec to recalibrate for accurate CBW * Consider DC Miralax if medically appropriate: +rectal tube (11) Uremia (12) CKD (chronic kidney disease) stage 5, GFR less than 15 ml/min (13) Colon distention Assessment & Plan: discussed with GI likely functional as having lots of loose bm rectal tube kub f/u s/p colonoscopy - findings reviewed with GI improved cont diet as tolerated repeat KUB Marked distention of the sigmoid colon. 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 No evidence of bowel wall thickening or pneumatosis 12 mm focus of contrast enhancement in the right pectineus muscle. While nonspecific in appearance, appearance raises concern for a possible pseudoaneurysm. Ill- defined thickening of the pectus medius muscle could indicate some intramuscular hemorrhage. The above findings were phoned to Dr. Urias at the time of interpretation Large bilateral pleural effusions Hazy pulmonary parenchymal opacities as well as dense consolidative opacities most likely represent pulmonary edema, but could represent pneumonia Evidence of anasarca elsewhere, with generalized edema of the subcutaneous fat Bladder wall thickening, raises concern for cystitis. Avalos catheter in place Colonic diverticulosis. No evidence of diverticulitis. Tracheostomy Pacemaker Gastrostomy Gastrostomy again demonstrated in satisfactory position. The stomach is otherwise unremarkable. The distal esophagus and duodenum are unremarkable. Ingested contrast reaches the colon. No small bowel distention or small bowel wall thickening. Interim placement of a rectal tube. There are a few colonic diverticula. No definite evidence of acute diverticulitis. The appendix is prominent in caliber, as previously No free or loculated intraperitoneal gas or fluid is evident. Again demonstrated is marked gaseous distention of the sigmoid colon which measures up to 12.6 cm in diameter, with the proximal aspect located laterally to the distal aspect, and caliber transition in the mesenteric root of both entry points. However, there is stool within the proximal portion which appears to be at least partially contrast opacified, and no definite persisting of the vascular pedicle demonstrated. The liver, gallbladder, bile ducts, pancreas, spleen, adrenals, kidneys are unremarkable. There are accessory splenules demonstrated. No retroperitoneal or mesenteric mass or adenopathy. No pelvic mass or adenopathy. The prostate is enlarged and protrudes into the inferior bladder. The bladder is thick-walled. Previously demonstrated Avalos catheter has been removed. Again demonstrated is a large right pleural effusion and a moderate to large left pleural effusion. Again demonstrated are compressive atelectatic changes of significant portions of both lower lobes. Pacemaker wires are seen within the heart. Previously demonstrated high attenuation focus within the right pectineus muscle is not evident. However, there is a low-attenuation area which measures [address] centrally which is not evident previously. There is diffuse edema of the subcutaneous fat. This is less severe than was demonstrated previously. There are degenerative proliferative changes of the lumbar spine. Impression: Abnormal configuration of the sigmoid colon, with marked distention of a sigmoid, inversion of the relationships of the proximal and descending colon, an d evidence of immediately apposed transition point raises concern for sigmoid volvulus. However, similarity to the prior exam, presence of what appears to be contrast opacified stool within the dilated segment, and lack of evidence of twisting of the vascular pedicle raises the possibility that this is baseline for this patient or possibly dysfunctional in nature. Correlate with clinical findings Enlarged prostate with protrusion into the bladder floor. Bladder neoplasm not completely excludable as a result Thick-walled bladder, may indicate cystitis or be due to chronic bladder lumen obstruction related to the above Abnormalities right pectineus muscle, with a 2 cm central low attenuation area. Note that previous exam have a high attenuation focus suspicious for a small pseudoaneurysm. 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 Colonic diverticulosis. No evidence of diverticulitis Gastrostomy in good position Rectal tube in good position Large right and moderate to large left pleural effusions. Resultant compressive pulmonary atelectatic changes or graft edema subcutaneous fat, less severe than was demonstrated on prior 08/17/2019 exam. Jonathan Urias Nov 01, 2019 15:59
[2019-11-01 16:00] VITALS: BP 121/66
--- NOTE | 2019-11-01 16:28 | NUR ---
NURSE NOTES: Called [facility] Nephrology, , spoke with Sudheer and informed Sudheer that patient has ordered hemodialysis for tomorrow 11/02/[address] Pichardo. Sudheer acknowledged and will inform hemodialysis nurse. Will continue to monitor patient.
--- NOTE | 2019-11-01 17:15 | General Progress Note ---
Subjective Allergies: Coded Allergies: No Known Allergies (Unverified , 06/10/19) Subjective remains ill on vent/ no change on HD vitals noted= transient hypotension Objective Last 24 Hour Vital Signs Date Time Temp Pulse Resp B/P (MAP) Pulse Ox O2 Delivery O2 Flow Rate FiO2 11/01/19 16:42 88 20 24 11/01/19 16:00 24 11/01/19 16:00 98.9 89 16 121/66 (84) 100 11/01/19 16:00 Mechanical Ventilator 11/01/19 12:49 91 14 24 11/01/19 12:00 Mechanical Ventilator 11/01/19 12:00 98.1 94 16 115/53 (73) 100 11/01/19 12:00 24 11/01/19 11:15 91 15 100 Mechanical Ventilator 24 95 14 24 11/01/19 08:58 112 16 24 11/01/19 08:08 114 97/60 11/01/19 08:08 97/60 11/01/19 08:05 114 13 24 11/01/19 08:00 115 11/01/19 08:00 Mechanical Ventilator 11/01/19 08:00 99.9 114 16 97/60 (72) 100 11/01/19 08:00 24 11/01/19 04:00 99.0 117 16 107/60 (76) 100 11/01/19 04:00 24 11/01/19 04:00 Mechanical Ventilator 11/01/19 03:27 116 11/01/19 03:20 114 19 24 11/01/19 00:00 98.8 117 16 125/65 (85) 100 11/01/19 00:00 Mechanical Ventilator 11/01/19 00:00 24 10/31/19 23:30 116 10/31/19 23:11 106 19 100 Mechanical Ventilator 24 107 17 24 10/31/19 20:04 104 123/62 10/31/19 20:00 24 10/31/19 20:00 98.2 104 16 123/62 (82) 100 10/31/19 20:00 Mechanical Ventilator 10/31/19 19:27 99 21 24 10/31/19 19:24 104 Intake and Output 10/31/19 11/01/19 19:00 07:00 Intake Total 370 ml 525 ml Output Total 2000 ml Balance 370 ml -1475 ml Free Water 100 ml 30 ml Tube Feeding 270 ml 495 ml Hemodialysis UF 2000 ml Laboratory Tests 10/31/19 23:15: POC Whole Blood Glucose 241H 11/01/19 05:02: POC Whole Blood Glucose 234H 11/01/19 08:15: White Blood Count 19.4H, Red Blood Count 3.83L, Hemoglobin 8.8L, Hematocrit 28.6L, Mean Corpuscular Volume 75L, Mean Corpuscular Hemoglobin 22.9L, Mean Corpuscular Hemoglobin Concent 30.6L, Red Cell Distribution Width 17.7H, Platelet Count 620H, Mean Platelet Volume 5.6L, Neutrophils (%) (Auto) , Lymphocytes (%) (Auto) , Monocytes (%) (Auto) , Eosinophils (%) (Auto) , Basophils (%) (Auto) , Differential Total Cells Counted 100, Neutrophils % (Manual) 67, Lymphocytes % (Manual) 13L, Monocytes % (Manual) 8, Eosinophils % (Manual) 11H, Basophils % (Manual) 1, Band Neutrophils 0, Platelet Estimate IncreasedH, Platelet Morphology Normal, Anisocytosis 1+, Sodium Level 136, Po tassium Level 3.5, Chloride Level 99, Carbon Dioxide Level 26, Anion Gap 11, Blood Urea Nitrogen 51H, Creatinine 3.0H, Estimat Glomerular Filtration Rate 20.3, Glucose Level 181H, Calcium Level 9.2 11/01/19 11:33: POC Whole Blood Glucose 143H 11/01/19 16:51: POC Whole Blood Glucose 161H Height (Feet): 5 Height (Inches): 10.00 Weight (Pounds): 123 Objective GENERAL: Ill-appearing male, chronically debilitated. HEENT: Tracheostomy in midline. Questionable fullness in the submandibular region. LUNGS: Coarse breath sounds. reduced breath sounds CARDIAC: S1, S2. Regular rate and rhythm. borderline tachy ABDOMEN: Soft. G-tube. EXTREMITIES: With noted edema. NEUROLOGICAL: Poorly responsive, weak diffusely. Assessment/Plan Assessment/Plan: IMPRESSION: 1. anemia. 2. fevers improved 3. Leukocytosis. 4. hypotension 5. Acute on chronic renal failure. 6. Hyponatremia. 7. Severe protein-calorie malnutrition. 8. Significantly elevated C-reactive protein concerning for infectious etiology. 9. Tracheostomy, G-tube. 10. Ventilator dependence. 11. anasarca 12. Hematuria 13. V pacing 14. hyponatremia 15. transaminitis, HIDA negative PLAN colisitn and acyclovir chronic care; unable to place care noted- bolus prn for hypotension on vent/ no wean monitor labs and optimize ID follow up - wbc now worse dialysis ongoing- adjust lytes prognosis poor for recovery impression, plan, and exam edited and reviewed in detail care discussed with Kain Tovar MD Nov 01, 2019 17:15
--- NOTE | 2019-11-01 19:05 | NUR ---
NURSE NOTES: Received report from Srinivas Storey RN. Patient asleep, afebrile and no respiratory distress. P responsive to name and tactile stimulation. V paced on 5 lead library monitor. On [facility] vent P8, ac 12, TV 550, FiO2 24%, peep 5. Noted also right upper chest dialysis catheter intact and asymptomatic. Dressing intact and clean. With right FA 20g IV lines intact, patent and asymptomatic. On Nephro 45cc/hr x 20 hrs via GT intact and infusing well. BP WNL. Needs were attended. HOB elevated. Bed rails are up and wheels are locked. Call light within reach. Continue plan of care.
--- NOTE | 2019-11-01 19:30 | NUR ---
NURSE HAND-OFF REPORT: Important Events on Shift: Patient Status: Stable Diet: Nepro 45 ml/hr Pending Orders: None Pending Results/Labs:None Pending MD notification:None Latest Vital Signs: Temperature 98.9 , Pulse 81 , B/P 121 /66 , Respiratory Rate 15 , O2 SAT 100 , Mechanical Ventilator, O2 Flow Rate 15.0 . Vital Sign Comment: Stable EKG Rhythm: V-Paced Rhythm change?: N MD Notified?: N - MD Response: Latest Delacruz Fall Score: 70 Fall Risk: High Risk Safety Measures: Call light Within Reach, Bed Alarm Zone 2, Side Rails Side Rails x3, Bed position Low and Locked. Fall Precautions: Yellow Socks Yellow Gown Patient Fall Education Report given to TAMICA Wang.
[2019-11-01 20:00] VITALS: BP 136/58
[2019-11-01] MEDS: Dyna-Hex 2% Top Sol 2oz TOPIC SCH (20:07)
[2019-11-01] MEDS: Epoetin Alfa-EPBX(ESRD on dialysis)4000 units/ml vial SUBQ SCH (20:08)
--- NOTE | 2019-11-01 20:55 | General Progress Note ---
Subjective Allergies: Coded Allergies: No Known Allergies (Unverified , 06/10/19) Subjective above noted NAD on TF non communicative Objective Last 24 Hour Vital Signs Date Time Temp Pulse Resp B/P (MAP) Pulse Ox O2 Delivery O2 Flow Rate FiO2 11/01/19 20:08 90 136/58 11/01/19 20:00 Mechanical Ventilator 11/01/19 20:00 24 11/01/19 19:13 81 15 24 11/01/19 16:42 88 20 24 11/01/19 16:00 24 11/01/19 16:00 98.9 89 16 121/66 (84) 100 11/01/19 16:00 88 11/01/19 16:00 Mechanical Ventilator 11/01/19 12:49 91 14 24 11/01/19 12:00 Mechanical Ventilator 11/01/19 12:00 93 11/01/19 12:00 98.1 94 16 115/53 (73) 100 11/01/19 12:00 24 11/01/19 11:15 91 15 100 Mechanical Ventilator 24 95 14 24 11/01/19 08:58 112 16 24 11/01/19 08:08 114 97/60 11/01/19 08:08 97/60 11/01/19 08:05 114 13 24 11/01/19 08:00 Mechanical Ventilator 11/01/19 08:00 99.9 114 16 97/60 (72) 100 11/01/19 08:00 24 11/01/19 08:00 115 11/01/19 04:00 99.0 117 16 107/60 (76) 100 11/01/19 04:00 24 11/01/19 04:00 Mechanical Ventilator 11/01/19 03:27 116 11/01/19 03:20 114 19 24 11/01/19 00:00 98.8 117 16 125/65 (85) 100 11/01/19 00:00 Mechanical Ventilator 11/01/19 00:00 24 10/31/19 23:30 116 10/31/19 23:11 106 19 100 Mechanical Ventilator 24 107 17 24 Intake and Output 10/31/19 11/01/19 19:00 07:00 Intake Total 370 ml 570 ml Output Total 2000 ml Balance 370 ml -1430 ml Free Water 100 ml 30 ml Tube Feeding 270 ml 540 ml Hemodialysis UF 2000 ml Laboratory Tests 10/31/19 23:15: POC Whole Blood Glucose 241H 11/01/19 05:02: POC Whole Blood Glucose 234H 11/01/19 08:15: White Blood Count 19.4H, Red Blood Count 3.83L, Hemoglobin 8.8L, Hematocrit 28.6L, Mean Corpuscular Volume 75L, Mean Corpuscular Hemoglobin 22.9L, Mean Corpuscular Hemoglobin Concent 30.6L, Red Cell Distribution Width 17.7H, Platelet Count 620H, Mean Platelet Volume 5.6L, Neutrophils (%) (Auto) , Lymphocytes (%) (Auto) , Monocytes (%) (Auto) , Eosinophils (%) (Auto) , Basophils (%) (Auto) , Differential Total Cells Counted 100, Neutrophils % (Manual) 67, Lymphocytes % (Manual) 13L, Monocytes % (Manual) 8, Eosinophils % (Manual) 11H, Basophils % (Manual) 1, Band Neutrophils 0, Platelet Estimate IncreasedH, Platelet Morphology Normal, Anisocytosis 1+, Sodium Level 136, Potassium Level 3.5, Chloride Level 99, Carbon Dioxide Level 26, Anion Gap 11, Blood Urea Nitrogen 51H, Creatinine 3.0H, Estimat Glomerular Filtration Rate 20.3, Glucose Level 181H, Calcium Level 9.2 11/01/19 11:33: POC Whole Blood Glucose 143H 11/01/19 16:51: POC Whole Blood Glucose 161H Height (Feet): 5 Height (Inches): 10.00 Weight (Pounds): 123 Objective Debilitated AA man NCAT (+) trach coarse BS RR abd less distended, anasarca, (+) GT, (+) rectal tube ext contracted Assessment/Plan Assessment/Plan: Assessment - abdominal distention, due to colonic dysmotility, - colonoscopy negative to hepatic flexure - diarrhea - presumed TF related - abnormal LFT - ? etiology --> HIDA negative and CT negative - Anemia - leukocytosis - stool OB (+) - EGD --> gastritis - Renal failure - Anasarca - resp failure, trach - b/l pleural effusions - dysphagia, GT - encephalopathy, contracted - poor px Recommendations - continue TF - check hepatitis markers - negative - rectal tube - roll side to side as feasible (hard due to severe contractions) - Elevate HOB - f/u labs - PPI - abx - supportive care Khorrami,Payman MD Nov 01, 2019 20:55
--- NOTE | 2019-11-01 23:00 | NUR ---
NURSE NOTES: Pt asleep. VS WNL. No respiratory distress. Pt saturating at 99-100%.
[2019-11-02] VITALS: BP 144/70
--- NOTE | 2019-11-02 02:00 | NUR ---
NURSE NOTES: Pt was given bed bath. gown and linen changed. Pt tolerated well. Wound treatment prn done. no discomforts and respiratory distress noted.
[2019-11-02 04:00] VITALS: BP 155/73
[2019-11-02 04:30] LABS: HEMATOCRIT 29.2 % (42.0-52.0); HEMOGLOBIN 9.1 G/DL (14.2-18.0); MEAN CORPUSCULAR VOLUME 75 FL (80-99); PLATELET COUNT 621 K/UL (150-450); RED BLOOD COUNT 3.88 M/UL (4.70-6.10); RED CELL DISTRIBUTION WIDTH 17.9 % (11.6-14.8)
[2019-11-02 04:43] LABS: WHITE BLOOD COUNT 23.1 K/UL (4.8-10.8)
[2019-11-02 04:45] LABS: CALCIUM 9.5 MG/DL (8.5-10.1); CREATININE 3.7 MG/DL (0.55-1.30); POTASSIUM 3.8 MMOL/L (3.5-5.1)
[2019-11-02] MEDS: NovoLOG Insulin Flexpen SUBQ SCH ×3 (05:04→17:13)
--- NOTE | 2019-11-02 06:15 | NUR ---
NURSE NOTES: PT was asleep during RN rounds. No discomforts noted. Pt responsive to pain and tactile stimuli. Oxygen saturating at 100%.
--- NOTE | 2019-11-02 07:10 | NUR ---
NURSE HAND-OFF REPORT: Important Events on Shift: None Patient Status: stable Diet: nephro at 45cc/hr Pending Orders: n Pending Results/Labs:n Pending MD notification:n Latest Vital Signs: Temperature 98.8 , Pulse 99 , B/P 155 /73 , Respiratory Rate 17 , O2 SAT 100 , Mechanical Ventilator, O2 Flow Rate 15.0 . Vital Sign Comment: n EKG Rhythm: V paced w/bbb Rhythm change?: N MD Notified?: N - MD Response: Latest Delacruz Fall Score: 70 Fall Risk: High Risk Safety Measures: Call light Within Reach, Bed Alarm Zone 2, Side Rails Side Rails x3, Bed position Low and Locked. Fall Precautions: Yellow Socks Yellow Gown Patient Fall Education Report given to Srinivas Storey RN.
--- NOTE | 2019-11-02 07:59 | NUR ---
NURSE NOTES: Dr. Campos at nurse station, inquired if would like to order DVT prophylaxis at this time, pt platelet level is 621, hemoglobin 9.1, hematorcrit 29.2. Dr. Campos acknowledged and ordered Heparin 5,000 units SQ BID. Order entered, noted, and carried out. Will continue to monitor patient.
[2019-11-02 08:00] VITALS: BP 148/75
[2019-11-02] MEDS ORDERED: Heparin Sod 1000 units/ml 10ml IV PRN (08:00)
[2019-11-02] MEDS ORDERED: Heparin 1000 units/ml 1ml Vial INJ PRN (08:00)
[2019-11-02] MEDS: Minoxidil 2.5mg tab GT SCH (08:11)
[2019-11-02] MEDS: Metoprolol Tartrate 100mg tab GT SCH ×2 (08:11→21:43)
[2019-11-02] MEDS: Zinc Oxide Oint 2oz TOPIC SCH ×2 (08:11→22:01)
[2019-11-02] MEDS: Lactobacillus-GG tablet GT SCH ×3 (08:11→21:42)
[2019-11-02] MEDS: Heparin 5000 units/ml inj SUBQ SCH ×2 (08:14→21:43)
--- NOTE | 2019-11-02 08:44 | Hematology/Onc Progress Note ---
Assessment/Plan Assessment/Plan Assessment/recs # Anemia due to chronic disease/kidney disease as well, gi bleed + occult + noted --> was on iron in the past, now on hold --> has been started on Epogen sq --> as per renal care --> egd done and shows gastritis --> on ppi --> egd showed gastritis, colo recently done --> hgb 9-->8. 7-->7.6-->9.2-->8.9-->9.2->9.3-->8.8->9.9-->9.2-->8.1-->8.7-->7.9-->8.6-->8.9--> 8.2->9-->9.3->8.9-->9.5-->10.6->9.2-->10->8.9--> 8.3-->8.9-->9.9-->9.3-->9-->9.3->11-->8.6->8.7>9-->8.4 --> spep ordered->wnl # Leukocytosis - with multiple infections, VRE UTI, flow is negative --> wbc trend 33-->28-->25->23->22->23->24->17.3-->17-->14->16-->15.6-->14-->14->13->19-> 18->17->22->22->19->17-->18->20-->15-->14->16-->14-->17->18-->17->15-->16-->17-> 28->19-->21-->19 --> on abx, linezolid and zosyn--> zosyn-->gent-->off-->vanc/zosyn-->cefepime/colistin --> + blood cultures with coag neg staph likely contaminated --> as per id recs --> has ordered a flow cytometry (with pathology) --> does show increased nK cell activity --> JOURDAN 2 and bcr-abl labs ordered (these are send outs)->negative --> plt 585-->613-->649-->669->663-->529-->506-->620-->720 # Elevated ddimer on admission --> duplex lower legs neg for dvt # Respiratory failure --> per pulm, s/p trach --> COVID 19 test negative x 2 # Hyperlipidemia --> statin po # Dysphagia s/p gtube with nepro --> per gi # ESRD with r fem julito --> hd as per renal # Dvt ppx heparin sq Appreciate consultation and dw Rn Subjective Constitutional: Denies: no symptoms, chills, fever, malaise, weakness, other HEENT: Denies: no symptoms, eye pain, blurred vision, tearing, double vision, ear pain, ear discharge, nose pain, nose congestion, throat pain, throat swelling, mouth pain, mouth swelling, other Cardiovascular: Denies: no symptoms, chest pain, edema, irregular heart rate, lightheadedness, palpitations, syncope, other Respiratory: Denies: no symptoms, cough, shortness of breath, SOB with excertion, SOB at rest, sputum, wheezing, other Gastrointestinal/Abdominal: Denies: no symptoms, abdomen distended, abdominal pain, black stools, tarry stools, blood in stool, constipated, diarrhea, difficulty swallowing, nausea, poor appetite, poor fluid intake, rectal bleeding, vomiting, other Genitourinary: Denies: no symptoms, burning, discharge, frequency, flank pain, hematuria, incontinence, pain, urgency, other Neurologic/Psychiatric: Denies: no symptoms, anxiety, depressed, emotional problems, headache, numbness, paresthesia, pre-existing deficit, seizure, tingling, tremors, weakness, other Endocrine: Denies: no symptoms, excessive sweating, flushing, intolerance to cold, intolerance to heat, increased hunger, increased thirst, increased urine, unexplained weight gain, unexplained weight loss, other Allergies: Coded Allergies: No Known Allergies (Unverified , 06/10/19) Subjective 8 meds noted, no bleeding, hgb 8.8, wbc 28, path flow pending 08/16 flow pending dw pathologist, results pending, wbc 25, hgb 9 08/17 labs reviewed, meds reviewed, meds noted, no night sweats 08/19 remains obtunded, on vent/trach, no bleeding wbc 21.7 08/20 labs have been reviewed, no bleeding, wbc still elev, path reviewed 08/21 labs are noted, no bleeding, on vent, wbc better 08/22 labs noted, no bleeding, meds reviewed, wbc 24 hgb 7.6 08/23 vent, off abx, c diff negative, h/h stable 08/24 labs reviewed, on abx, wbc 17, hgb 8.9, no hemolysis 08/26 reviewed flow and is negative for leukemia, matt rn 08/27 meds reviewed, no night sweats, matt rn, no major bleeding 08/28 meds reivewed, labs noted 08/29 wbc is stable, approx 15, hgb 8.8, no hemolysis 08/30 labs are noted, is for colo today, hgb 9.9 08/31 right fem julito in place, unchanged, hgb 9.2, gi aware 09/01 labs noted, hgb 8.8, plt >600, no bleeding 09/02 labs noted, no bleeding, with elev wbc still, no new changes 09/03 meds are noted, no bleeding, labs reviewed hgb 8.6 09/04 no major events, hd as per renal, abx, no bleeding hgb low 09/05 labs are noted, no bleeding, meds have been reviewed 09/06 no new labs no hemolysis, cbc is noted, no bleeding 09/07 meds reviewed, no bleeding, matt rn, permacath functioning well 09/09 meds reviewed, wbc still elevated, as per id recs, cbc noted 09/10 is obtunded, with gutbe in place, labs reviewed 09/11 obtunded, as per id, observe now off abx, labs noted, wbc 19 09/12 cbc is pending, remains on epogen, also off abx 09/13 labs reviewed, no bleeding, elev wbc, no night sweats 09/14 meds noted, no bleeding, wbc 19, hgb 9.5, no night sweats 09/21 obtunded, remains on vent, labs noted, no bleeding, hgb 8.9 09/22 obtunded, labs noted, no bleeding, on vent, unchanged 09/23 unchanges, wbc remains elevated 20k, on abx, on vent 09/24 labs have been reviewed, no bleeding, wbc 15, may need abx 09/25 formula gtube changed, labs noted, remains obtunded, hgb 9.3 09/26 labs have been reviewed, no bleeding, matt rn, no night sweats 09/27 meds reviewed, no bleeding, wbc 14, on abx, remains obtunded 09/28 remains obtunded, no bleeding, wbc better, hgb 8.9, no hemolysis, plt 506 09/30 on colisitn, wbc elevated, cefepime added per id, hgb stable 10/01 labs reviewed, no bleeding, matt rn, no major events noted, wbc 14, hgb 10.6 10/02 labs have been noted, hgb 9.2, wbc 17, on abx, matt rn 10/03 continue on tube feeds, no bleeding, on vent, wbc remains elevated 10/04 remains ibtunded, is on a mechanical ventilator with tube feeds noted 10/05 labs are noted, hgb 8.6, wbc remains elevated, have ordered for spep 10/07 obtunded on vent, with gtube feeds, labs reviewed, matt rn 10/08 labs are noted, on vent/trach, hgb 10.2, remains obtunded 10/09 labns noted, wbc 15, hgb 8.9, remains altered, on tfs 10/10 labs noted, holding tube feeds, matt rn, hg stable 8. currently 10/11 remains on tfs, supportive care, labs noted, no bleeding 10/12 remains obtunded, hgb 8.9, no hemolysis is seen 10/14 labs reviewed, no bleeding, pending potential hd if rn available 10/15 is on vent, with gtube, labs reviewed, no bleeding, to get hd soon 10/16 remains on vent, matt rn at bedside, wbc 15, abx prn, plt also higher, will monitor 10/17 on vent, continue on tube feeds via gtube, labs improved 10/18 labs noted, remains on vent, and tube feeds, no major changes 10/19 nad, no bleeding, labs reviewed, no night sweats, bp elevated, cards aware 10/21 labs pending, with gtube running, on mec vent, abx off 10/22 labs reviewed, no major changes, wbc 18, plt 791k, on gtube feeds 10/23 labs reviewed, meds noted, on epogen and lovenox sq, obtunded, is nv 9.16 labs are noted, wbc 28, hgb 8.6, no hemolysis is noted 10/27 labs reviewed, on mech vent, on gtube feeds, no bleeding wbc 21 10/28 labs noted, wbc 19, plt remains elevated, hd as per renal Dr. Frank 10/29 obtunded, gt feedings on hold, wbc 19, hgb 9, no bleeding 10/30 labs reviewed, no bleeding, wbc 21, hgb 9, hd as per renal care 10/31 labs are noted, wbc 19, hgb 8.4, on vent, obtunded 11/01 obtunded state, no bleeding, meds reviewed, on heparin started today, matt rn Objective Objective Current Medications Medications (Trade) Dose Ordered Sig/Leonel Route PRN Reason Start Time Stop Time Status Last Admin Dose Admin Acetaminophen (Tylenol) 650 mg Q6H PRN GT Temp >100.5 10/21/19 20:45 11/20/19 20:44 10/24/19 10:25 Cefepime HCl 1 gm/ Dextrose 55 ml @ 110 mls/hr Q24H IVPB 10/27/19 12:00 11/03/19 11:59 11/01/19 12:07 Chlorhexidine Gluconate (Felipa-Hex 2%) 1 applic DAILY@1999 TOPIC 09/12/19 20:00 12/11/19 19:59 11/01/19 20:07 Clonidine HCl (Catapres Tab) 0.1 mg Q4H PRN GT For High Blood Pressure 09/09/19 12:30 12/08/19 05:29 09/15/19 04:10 Colistimethate Sodium (Colistin *inhalation use only*) 75 mg Q12HR@10,22 INH 10/30/19 22:00 11/06/19 21:59 11/01/19 22:26 Dextrose (Dextrose 50%) 25 ml Q30M PRN IV Hypoglycemia 08/09/19 07:30 11/07/19 07:29 Dextrose (Dextrose 50%) 50 ml Q30M PRN IV Hypoglycemia 08/09/19 07:30 11/07/19 07:29 Epoetin Andreas (Epoetin Andreas(ESRD on dialysis)) 8,000 unit WED-WED-WED SUBQ 10/25/19 21:00 01/23/20 20:59 11/01/19 20:08 Famotidine (Pepcid) 20 mg DAILY GT 08/30/19 09:00 11/28/19 08:59 11/02/19 08:11 Heparin Sodium (Porcine) (Heparin 5000 units/ml) 5,000 units EVERY 12 HOURS SUBQ 11/02/19 09:00 12/17/19 08:59 11/02/19 08:14 Heparin Sodium (Porcine) (Heparin Sod 1000 units/ml 10ml) 2,000 unit ONCE PRN IV HD USE 11/02/19 08:00 11/02/19 23:59 Heparin Sodium (Porcine) (Heparin) 1,000 unit POSTHD PRN INJ POSTHD 11/02/19 08:00 11/02/19 23:59 Insulin Aspart (NovoLOG) Q6HR SUBQ 09/25/19 18:00 11/07/19 11:29 11/02/19 05:04 Lactobacillus Acidophilus (Culturelle) 1 tab EVERY 12 HOURS GT 10/03/19 21:00 12/13/19 17:59 11/02/19 08:11 Loperamide HCl (Imodium) 2 mg Q6H PRN NG Diarrhea 10/15/19 07:45 11/14/19 07:44 Metoprolol Tartrate (Lopressor) 200 mg Q12HR GT 08/09/19 09:00 11/07/19 08:59 11/01/19 20:08 Minoxidil (Loniten) 5 mg DAILY GT 08/09/19 09:00 11/07/19 08:59 10/28/19 09:55 Sodium Chloride 500 ml @ 999 mls/hr Q31M PRN IV sbp<90 10/28/19 21:30 11/27/19 21:29 Sodium Chloride 1,000 ml @ 500 mls/hr Q2H PRN IVLG sbp<90 during hd 11/02/19 08:00 11/02/19 23:59 Zinc Oxide (Zinc Oxide) 1 applic EVERY 12 HOURS TOPIC 10/03/19 09:00 11/08/19 17:59 11/02/19 08:11 Last 24 Hour Vital Signs Date Time Temp Pulse Resp B/P (MAP) Pulse Ox O2 Delivery O2 Flow Rate FiO2 11/02/19 06:49 99 17 24 11/02/19 04:00 24 11/02/19 04:00 98.8 86 16 155/73 (100) 100 11/02/19 04:00 Mechanical Ventilator 11/02/19 03:50 93 11/02/19 03:40 83 13 24 11/02/19 00:00 Mechanical Ventilator 11/02/19 00:00 97.9 92 16 144/70 (94) 100 11/01/19 23:29 95 11/01/19 22:40 80 14 100 Mechanical Ventilator 24 83 15 24 11/01/19 20:08 90 136/58 11/01/19 20:00 97.9 85 16 136/58 (84) 100 11/01/19 20:00 Mechanical Ventilator 11/01/19 20:00 24 11/01/19 19:20 82 11/01/19 19:13 81 15 24 11/01/19 16:42 88 20 24 11/01/19 16:00 24 11/01/19 16:00 98.9 89 16 121/66 (84) 100 11/01/19 16:00 88 11/01/19 16:00 Mechanical Ventilator 11/01/19 12:49 91 14 24 11/01/19 12:00 Mechanical Ventilator 11/01/19 12:00 93 11/01/19 12:00 98.1 94 16 115/53 (73) 100 11/01/19 12:00 24 11/01/19 11:15 91 15 100 Mechanical Ventilator 24 95 14 24 11/01/19 08:58 112 16 24 11/01/19 08:08 114 97/60 11/01/19 08:08 97/60 11/01/19 08:05 114 13 24 11/01/19 08:00 Mechanical Ventilator 11/01/19 08:00 99.9 114 16 97/60 (72) 100 11/01/19 08:00 24 11/01/19 08:00 115 11/01/19 04:00 99.0 117 16 107/60 (76) 100 11/01/19 04:00 24 11/01/19 04:00 Mechanical Ventilator 11/01/19 03:27 116 11/01/19 03:20 114 19 24 11/01/19 00:00 98.8 117 16 125/65 (85) 100 11/01/19 00:00 Mechanical Ventilator 11/01/19 00:00 24 10/31/19 23:30 116 10/31/19 23:11 106 19 100 Mechanical Ventilator 24 107 17 24 10/31/19 20:04 104 123/62 10/31/19 20:00 24 10/31/19 20:00 98.2 104 16 123/62 (82) 100 10/31/19 20:00 Mechanical Ventilator 10/31/19 19:27 99 21 24 10/31/19 19:24 104 10/31/19 16:00 90 10/31/19 16:00 98.2 89 16 143/60 (87) 100 10/31/19 16:00 Mechanical Ventilator 10/31/19 16:00 24 10/31/19 15:17 91 17 24 10/31/19 12:00 89 10/31/19 11:57 Mechanical Ventilator 10/31/19 11:56 24 10/31/19 11:54 97.7 89 17 161/70 (100) 100 10/31/19 10:56 86 17 100 Mechanical Ventilator 24 86 17 24 10/31/19 10:00 86 10/31/19 09:00 86 141/86 10/31/19 09:00 141/86 Intake and Output 11/01/19 11/02/19 19:00 07:00 Intake Total 795 ml 495 ml Output Total 100 ml Balance 695 ml 495 ml Free Water 300 ml Tube Feeding 495 ml 495 ml Stool Total 100 ml # Voids 1 1 # Bowel Movements 51 Labs Test 10/30/19 11:28 10/30/19 16:04 10/30/19 23:41 10/31/19 02:46 POC Whole Blood Glucose 134 MG/DL (74-106) 181 MG/DL (74-106) 202 MG/DL (74-106) White Blood Count 20.5 K/UL (4.8-10.8) Red Blood Count 3.90 M/UL (4.70-6.10) Hemoglobin 9.1 G/DL (14.2-18.0) Hematocrit 29.5 % (42.0-52.0) Mean Corpuscular Volume 76 FL (80-99) Mean Corpuscular Hemoglobin 23.3 PG (27.0-31.0) Mean Corpuscular Hemoglobin Concent 30.8 G/DL (32.0-36.0) Red Cell Distribution Width 17.0 % (11.6-14.8) Platelet Count 609 K/UL (150-450) Mean Platelet Volume 5.5 FL (6.5-10.1) Neutrophils (%) (Auto) % (45.0-75.0) Lymphocytes (%) (Auto) % (20.0-45.0) Monocytes (%) (Auto) % (1.0-10.0) Eosinophils (%) (Auto) % (0.0-3.0) Basophils (%) (Auto) % (0.0-2.0) Differential Total Cells Counted 100 Neutrophils % (Manual) 79 % (45-75) Lymphocytes % (Manual) 16 % (20-45) Monocytes % (Manual) 3 % (1-10) Eosinophils % (Manual) 2 % (0-3) Basophils % (Manual) 0 % (0-2) Band Neutrophils 0 % (0-8) Platelet Estimate Increased Platelet Morphology Normal Hypochromasia 2+ Microcytosis 2+ Erythrocyte Sedimentation Rate 110 MM/HR (0-20) Prothrombin Time 12.7 SEC (9.30-11.50) Prothromb Time International Ratio 1.2 (0.9-1.1) Activated Partial Thromboplast Time 32 SEC (23-33) Sodium Level 133 MMOL/L (136-145) Potassium Level 3.4 MMOL/L (3.5-5.1) Chloride Level 97 MMOL/L (98-107) Carbon Dioxide Level 25 MMOL/L (21-32) Anion Gap 11 mmol/L (5-15) Blood Urea Nitrogen 88 mg/dL (7-18) Creatinine 4.6 MG/DL (0.55-1.30) Estimat Glomerular Filtration Rate 12.4 mL/min (>60) Glucose Level 187 MG/DL (74-106) Calcium Level 9.2 MG/DL (8.5-10.1) Total Bilirubin 0.4 MG/DL (0.2-1.0) Aspartate Amino Transf (AST/SGOT) 52 U/L (15-37) Alanine Aminotransferase (ALT/SGPT) 56 U/L (12-78) Alkaline Phosphatase 282 U/L (46-116) C-Reactive Protein, Quantitative 14.9 mg/dL (0.00-0.90) Total Protein 8.0 G/DL (6.4-8.2) Albumin 1.9 G/DL (3.4-5.0) Globulin 6.1 g/dL Albumin/Globulin Ratio 0.3 (1.0-2.7) Amylase Level 45 U/L (25-115) Lipase 185 U/L (73-393) Test 10/31/19 04:53 10/31/19 11:50 10/31/19 23:15 11/01/19 05:02 POC Whole Blood Glucose 177 MG/DL (74-106) 241 MG/DL (74-106) 234 MG/DL (74-106) Test 11/01/19 08:15 11/01/19 11:33 11/01/19 16:51 11/01/19 23:17 White Blood Count 19.4 K/UL (4.8-10.8) Red Blood Count 3.83 M/UL (4.70-6.10) Hemoglobin 8.8 G/DL (14.2-18.0) Hematocrit 28.6 % (42.0-52.0) Mean Corpuscular Volume 75 FL (80-99) Mean Corpuscular Hemoglobin 22.9 PG (27.0-31.0) Mean Corpuscular Hemoglobin Concent 30.6 G/DL (32.0-36.0) Red Cell Distribution Width 17.7 % (11.6-14.8) Platelet Count 620 K/UL (150-450) Mean Platelet Volume 5.6 FL (6.5-10.1) Neutrophils (%) (Auto) % (45.0-75.0) Lymphocytes (%) (Auto) % (20.0-45.0) Monocytes (%) (Auto) % (1.0-10.0) Eosinophils (%) (Auto) % (0.0-3.0) Basophils (%) (Auto) % (0.0-2.0) Differential Total Cells Counted 100 Neutrophils % (Manual) 67 % (45-75) Lymphocytes % (Manual) 13 % (20-45) Monocytes % (Manual) 8 % (1-10) Eosinophils % (Manual) 11 % (0-3) Basophils % (Manual) 1 % (0-2) Band Neutrophils 0 % (0-8) Platelet Estimate Increased Platelet Morphology Normal Anisocytosis 1+ Sodium Level 136 MMOL/L (136-145) Potassium Level 3.5 MMOL/L (3.5-5.1) Chloride Level 99 MMOL/L (98-107) Carbon Dioxide Level 26 MMOL/L (21-32) Anion Gap 11 mmol/L (5-15) Blood Urea Nitrogen 51 mg/dL (7-18) Creatinine 3.0 MG/DL (0.55-1.30) Estimat Glomerular Filtration Rate 20.3 mL/min (>60) Glucose Level 181 MG/DL (74-106) Calcium Level 9.2 MG/DL (8.5-10.1) POC Whole Blood Glucose 143 MG/DL (74-106) 161 MG/DL (74-106) 159 MG/DL (74-106) Test 11/02/19 03:30 11/02/19 05:00 White Blood Count 23.1 K/UL (4.8-10.8) Red Blood Count 3.88 M/UL (4.70-6.10) Hemoglobin 9.1 G/DL (14.2-18.0) Hematocrit 29.2 % (42.0-52.0) Mean Corpuscular Volume 75 FL (80-99) Mean Corpuscular Hemoglobin 23.4 PG (27.0-31.0) Mean Corpuscular Hemoglobin Concent 31.1 G/DL (32.0-36.0) Red Cell Distribution Width 17.9 % (11.6-14.8) Platelet Count 621 K/UL (150-450) Mean Platelet Volume 5.6 FL (6.5-10.1) Neutrophils (%) (Auto) % (45.0-75.0) Lymphocytes (%) (Auto) % (20.0-45.0) Monocytes (%) (Auto) % (1.0-10.0) Eosinophils (%) (Auto) % (0.0-3.0) Basophils (%) (Auto) % (0.0-2.0) Sodium Level 129 MMOL/L (136-145) Potassium Level 3.8 MMOL/L (3.5-5.1) Chloride Level 94 MMOL/L (98-107) Carbon Dioxide Level 25 MMOL/L (21-32) Anion Gap 10 mmol/L (5-15) Blood Urea Nitrogen 75 mg/dL (7-18) Creatinine 3.7 MG/DL (0.55-1.30) Estimat Glomerular Filtration Rate 16.0 mL/min (>60) Glucose Level 183 MG/DL (74-106) Calcium Level 9.5 MG/DL (8.5-10.1) POC Whole Blood Glucose 183 MG/DL (74-106) Height (Feet): 5 Height (Inches): 10.00 Weight (Pounds): 123 Objective Physical Exam General Appearance: nad, Chronically Ill Head: normocephalic Eyes: right eye PERRL - Will not open left eye ENT: moist mucus membranes Neck: other - submandibular mass R, fairly rigid with resistance to rotation to L, tracheotomy Respiratory: decreased breath sounds, crackles, other - pacemaker, vent+ Cardiovascular: regular rate, rhythm, edema - anasarca Gastrointestinal: non tender, distended, other - G tube Genitourinary: other Musculoskeletal: other - Contractures all extremities Neurologic: sensory intact, motor weakness, responsive Psychiatric: other Skin: Decubitus/Ulcer - Stage III right elbow, stage III left elbow, stage II sacrum, stage III scrotum, warm/dry Fitz Campos MD Nov 02, 2019 08:44
--- NOTE | 2019-11-02 09:15 | NUR ---
NURSE NOTES: Patient noted with sodium level of 129, potassium level of 3.8, chloride level of 94 today, patient will receive hemodialysis today as order per Dr. Pichardo. Contacted and informed Dr. Pichardo of morning BMP results. Dr. Pichardo acknowledged and gave no new orders at this time. Will continue to monitor patient.
--- NOTE | 2019-11-02 09:58 | General Progress Note ---
Subjective Allergies: Coded Allergies: No Known Allergies (Unverified , 06/10/19) Subjective remains ill on vent/ no change on HD vitals noted= transient hypotension Objective Last 24 Hour Vital Signs Date Time Temp Pulse Resp B/P (MAP) Pulse Ox O2 Delivery O2 Flow Rate FiO2 11/02/19 08:00 Mechanical Ventilator 11/02/19 08:00 24 11/02/19 08:00 98.1 90 16 148/75 (99) 100 11/02/19 06:49 99 17 24 11/02/19 04:00 24 11/02/19 04:00 98.8 86 16 155/73 (100) 100 11/02/19 04:00 Mechanical Ventilator 11/02/19 03:50 93 11/02/19 03:40 83 13 24 11/02/19 00:00 Mechanical Ventilator 11/02/19 00:00 97.9 92 16 144/70 (94) 100 11/01/19 23:29 95 11/01/19 22:40 80 14 100 Mechanical Ventilator 24 83 15 24 11/01/19 20:08 90 136/58 11/01/19 20:00 97.9 85 16 136/58 (84) 100 11/01/19 20:00 Mechanical Ventilator 11/01/19 20:00 24 11/01/19 19:20 82 11/01/19 19:13 81 15 24 11/01/19 16:42 88 20 24 11/01/19 16:00 24 11/01/19 16:00 98.9 89 16 121/66 (84) 100 11/01/19 16:00 88 11/01/19 16:00 Mechanical Ventilator 11/01/19 12:49 91 14 24 11/01/19 12:00 Mechanical Ventilator 11/01/19 12:00 93 11/01/19 12:00 98.1 94 16 115/53 (73) 100 11/01/19 12:00 24 11/01/19 11:15 91 15 100 Mechanical Ventilator 24 95 14 24 Intake and Output 11/01/19 11/02/19 19:00 07:00 Intake Total 795 ml 495 ml Output Total 100 ml Balance 695 ml 495 ml Free Water 300 ml Tube Feeding 495 ml 495 ml Stool Total 100 ml # Voids 1 1 # Bowel Movements 51 Laboratory Tests 11/01/19 11:33: POC Whole Blood Glucose 143H 9/23/20 16:51: POC Whole Blood Glucose 161H 11/01/19 23:17: POC Whole Blood Glucose 159H 11/02/19 03:30: White Blood Count 23.1*H, Red Blood Count 3.88L, Hemoglobin 9.1L, Hematocrit 29.2L, Mean Corpuscular Volume 75L, Mean Corpuscular Hemoglobin 23.4L, Mean Corpuscular Hemoglobin Concent 31.1L, Red Cell Distribution Width 17.9H, Platelet Count 621H, Mean Platelet Volume 5.6L, Neutrophils (%) (Auto) , Lymphocytes (%) (Auto) , Monocytes (%) (Auto) , Eosinophils (%) (Auto) , Basophils (%) (Auto) , Differential Total Cells Counted 100, Neutrophils % (Manual) 70, Lymphocytes % (Manual) 15L, Monocytes % (Manual) 8, Eosinophils % (Manual) 7H, Basophils % (Manual) 0, Band Neutrophils 0, Platelet Estimate IncreasedH, Platelet Morphology Normal, Hypochromasia 1+, Anisocytosis 1+, Microcytosis 1+, Sodium Level 129L, Potassium Level 3.8, Chloride Level 94L, Carbon Dioxide Level 25, Anion Gap 10, Blood Urea Nitrogen 75H, Creatinine 3.7H, Estimat Glomerular Filtration Rate 16.0, Glucose Level 183H, Calcium Level 9.5 11/02/19 05:00: POC Whole Blood Glucose 183H Height (Feet): 5 Height (Inches): 10.00 Weight (Pounds): 123 Objective GENERAL: Ill-appearing male, chronically debilitated. HEENT: Tracheostomy in midline. Questionable fullness in the submandibular region. LUNGS: Coarse breath sounds. reduced breath sounds CARDIAC: S1, S2. Regular rate and rhythm. borderline tachy ABDOMEN: Soft. G-tube. EXTREMITIES: With noted edema. NEUROLOGICAL: Poorly responsive, weak diffusely. Assessment/Plan Assessment/Plan: IMPRESSION: 1. anemia. 2. fevers improved 3. Leukocytosis. 4. hypotension 5. Acute on chronic renal failure. 6. Hyponatremia. 7. Severe protein-calorie malnutrition. 8. Significantly elevated C-reactive protein concerning for infectious etiology. 9. Tracheostomy, G-tube. 10. Ventilator dependence. 11. anasarca 12. Hematuria 13. V pacing 14. hyponatremia 15. transaminitis, HIDA negative PLAN colisitn and acyclovir chronic care; unable to place care noted- bolus prn for hypotension on vent/ no wean monitor labs and optimize ID follow up - wbc now worse dialysis ongoing- adjust lytes prognosis poor for recovery impression, plan, and exam edited and reviewed in detail care discussed with Kain Tovar MD Nov 02, 2019 09:58
[2019-11-02] MEDS: Colistin for inhalation INH SCH ×2 (10:05→22:35)
--- NOTE | 2019-11-02 10:10 | NUR ---
NURSE NOTES: Patient noted with elevated WBC level today of 23.1, patient is on Maxipime 1 gm Q24HR and Colistin nebulized, afebrile. Dr. Tri De Leon at nurse station made aware of assessments. Dr. Tri De Leon acknowledged and gave no new orders at this time. Will continue to monitor patient.
--- NOTE | 2019-11-02 10:56 | Infectious Diseases Prog Note ---
Assessment/Plan Assessment/Plan A: 1. Pneumonia with Morganella & KPC COVID19 X2 : negative 2. ESRD on HD 3. Leukocytosis worsenig 4. Respiratory failure, Ventilator dependent 5. Anemia 6. Elevated transaminase 7. 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 Klebsiella line infection s/p line change 10. Diarrhea, C. difficile negative PLAN: 1. Discontinue Cefepime 2. Continue Colistin inhaler x 3 days Subjective ROS Limited/Unobtainable: Yes Constitutional: Denies: fever Gastrointestinal/Abdominal: Reports: diarrhea Allergies: Coded Allergies: No Known Allergies (Unverified , 06/10/19) Objective Last 24 Hour Vital Signs Date Time Temp Pulse Resp B/P (MAP) Pulse Ox O2 Delivery O2 Flow Rate FiO2 11/02/19 10:05 90 14 100 Mechanical Ventilator 24 83 15 24 11/02/19 08:00 Mechanical Ventilator 11/02/19 08:00 88 11/02/19 08:00 24 11/02/19 08:00 98.1 90 16 148/75 (99) 100 11/02/19 06:49 99 17 24 11/02/19 04:00 24 11/02/19 04:00 98.8 86 16 155/73 (100) 100 11/02/19 04:00 Mechanical Ventilator 11/02/19 03:50 93 11/02/19 03:40 83 13 24 11/02/19 00:00 Mechanical Ventilator 11/02/19 00:00 97.9 92 16 144/70 (94) 100 11/01/19 23:29 95 11/01/19 22:40 80 14 100 Mechanical Ventilator 24 83 15 24 11/01/19 20:08 90 136/58 11/01/19 20:00 97.9 85 16 136/58 (84) 100 11/01/19 20:00 Mechanical Ventilator 11/01/19 20:00 24 11/01/19 19:20 82 11/01/19 19:13 81 15 24 11/01/19 16:42 88 20 24 11/01/19 16:00 24 11/01/19 16:00 98.9 89 16 121/66 (84) 100 11/01/19 16:00 88 11/01/19 16:00 Mechanical Ventilator 11/01/19 12:49 91 14 24 9/23/20 12:00 Mechanical Ventilator 11/01/19 12:00 93 11/01/19 12:00 98.1 94 16 115/53 (73) 100 11/01/19 12:00 24 11/01/19 11:15 91 15 100 Mechanical Ventilator 24 95 14 24 Height (Feet): 5 Height (Inches): 10.00 Weight (Pounds): 123 HEENT: mucous membranes moist, status post trach Respiratory/Chest: decreased breath sounds, other - on ventilator Cardiovascular: normal rate, pacemaker/AICD Abdomen: soft, non tender, other - GT & rectal tube Extremities: no edema Neurologic/Psychiatric: aphasia Musculoskeletal: atrophy Laboratory Tests Test 11/01/19 11:33 11/01/19 16:51 11/01/19 23:17 11/02/19 03:30 POC Whole Blood Glucose 143 MG/DL (74-106) H 161 MG/DL (74-106) H 159 MG/DL (74-106) H White Blood Count 23.1 K/UL (4.8-10.8) *H Red Blood Count 3.88 M/UL (4.70-6.10) L Hemoglobin 9.1 G/DL (14.2-18.0) L Hematocrit 29.2 % (42.0-52.0) L Mean Corpuscular Volume 75 FL (80-99) L Mean Corpuscular Hemoglobin 23.4 PG (27.0-31.0) L Mean Corpuscular Hemoglobin Concent 31.1 G/DL (32.0-36.0) L Red Cell Distribution Width 17.9 % (11.6-14.8) H Platelet Count 621 K/UL (150-450) H Mean Platelet Volume 5.6 FL (6.5-10.1) L Neutrophils (%) (Auto) % (45.0-75.0) Lymphocytes (%) (Auto) % (20.0-45.0) Monocytes (%) (Auto) % (1.0-10.0) Eosinophils (%) (Auto) % (0.0-3.0) Basophils (%) (Auto) % (0.0-2.0) Differential Total Cells Counted 100 Neutrophils % (Manual) 70 % (45-75) Lymphocytes % (Manual) 15 % (20-45) L Monocytes % (Manual) 8 % (1-10) Eosinophils % (Manual) 7 % (0-3) H Basophils % (Manual) 0 % (0-2) Band Neutrophils 0 % (0-8) Platelet Estimate Increased H Platelet Morphology Normal Hypochromasia 1+ Anisocytosis 1+ Microcytosis 1+ Sodium Level 129 MMOL/L (136-145) L Potassium Level 3.8 MMOL/L (3.5-5.1) Chloride Level 94 MMOL/L (98-107) L Carbon Dioxide Level 25 MMOL/L (21-32) Anion Gap 10 mmol/L (5-15) Blood Urea Nitrogen 75 mg/dL (7-18) H Creatinine 3.7 MG/DL (0.55-1.30) H Estimat Glomerular Filtration Rate 16.0 mL/min (>60) Glucose Level 183 MG/DL (74-106) H Calcium Level 9.5 MG/DL (8.5-10.1) Test 11/02/19 05:00 POC Whole Blood Glucose 183 MG/DL (74-106) H Current Medications Medications (Trade) Dose Ordered Sig/Leonel Route PRN Reason Start Time Stop Time Status Last Admin Dose Admin Acetaminophen (Tylenol) 650 mg Q6H PRN GT Temp >100.5 10/21/19 20:45 11/20/19 20:44 10/24/19 10:25 Cefepime HCl 1 gm/ Dextrose 55 ml @ 110 mls/hr Q24H IVPB 10/27/19 12:00 11/03/19 11:59 11/01/19 12:07 Chlorhexidine Gluconate (Felipa-Hex 2%) 1 applic DAILY@1999 TOPIC 09/12/19 20:00 12/11/19 19:59 11/01/19 20:07 Clonidine HCl (Catapres Tab) 0.1 mg Q4H PRN GT For High Blood Pressure 09/09/19 12:30 12/08/19 05:29 09/15/19 04:10 Colistimethate Sodium (Colistin *inhalation use only*) 75 mg Q12HR@10,22 INH 10/30/19 22:00 11/06/19 21:59 11/02/19 10:05 Dextrose (Dextrose 50%) 25 ml Q30M PRN IV Hypoglycemia 08/09/19 07:30 11/07/19 07:29 Dextrose (Dextrose 50%) 50 ml Q30M PRN IV Hypoglycemia 08/09/19 07:30 11/07/19 07:29 Epoetin Andreas (Epoetin Andreas(ESRD on dialysis)) 8,000 unit WED-WED-WED SUBQ 10/25/19 21:00 01/23/20 20:59 11/01/19 20:08 Famotidine (Pepcid) 20 mg DAILY GT 08/30/19 09:00 11/28/19 08:59 11/02/19 10:14 Heparin Sodium (Porcine) (Heparin 5000 units/ml) 5,000 units EVERY 12 HOURS SUBQ 11/02/19 09:00 12/17/19 08:59 11/02/19 08:14 Heparin Sodium (Porcine) (Heparin Sod 1000 units/ml 10ml) 2,000 unit ONCE PRN IV HD USE 11/02/19 08:00 11/02/19 23:59 Heparin Sodium (Porcine) (Heparin) 1,000 unit POSTHD PRN INJ POSTHD 11/02/19 08:00 11/02/19 23:59 Insulin Aspart (NovoLOG) Q6HR SUBQ 09/25/19 18:00 11/07/19 11:29 11/02/19 05:04 Lactobacillus Acidophilus (Culturelle) 1 tab EVERY 12 HOURS GT 10/03/19 21:00 12/13/19 17:59 11/02/19 10:14 Loperamide HCl (Imodium) 2 mg Q6H PRN NG Diarrhea 10/15/19 07:45 11/14/19 07:44 Metoprolol Tartrate (Lopressor) 200 mg Q12HR GT 08/09/19 09:00 11/07/19 08:59 11/01/19 20:08 Minoxidil (Loniten) 5 mg DAILY GT 08/09/19 09:00 11/07/19 08:59 10/28/19 09:55 Sodium Chloride 500 ml @ 999 mls/hr Q31M PRN IV sbp<90 10/28/19 21:30 11/27/19 21:29 Sodium Chloride 1,000 ml @ 500 mls/hr Q2H PRN IVLG sbp<90 during hd 11/02/19 08:00 9/24/20 23:59 Zinc Oxide (Zinc Oxide) 1 applic EVERY 12 HOURS TOPIC 10/03/19 09:00 11/08/19 17:59 11/02/19 08:11 Real De Leon MD Nov 02, 2019 10:56
[2019-11-02 12:00] VITALS: BP 164/86
--- NOTE | 2019-11-02 12:28 | Nephrology Progress Note ---
Assessment/Plan Plan Septic Shock -Restarted IV Abx per ID. WBC 23,000 MOF ESRD - HD TTS + IVF boluses. Anemia of CKD -TUYET. Subjective Subjective Obtunded. Objective Objective Last 24 Hour Vital Signs Date Time Temp Pulse Resp B/P (MAP) Pulse Ox O2 Delivery O2 Flow Rate FiO2 11/02/19 12:00 24 11/02/19 12:00 Mechanical Ventilator 11/02/19 10:05 90 14 100 Mechanical Ventilator 24 83 15 24 11/02/19 08:00 Mechanical Ventilator 11/02/19 08:00 88 11/02/19 08:00 24 11/02/19 08:00 98.1 90 16 148/75 (99) 100 11/02/19 06:49 99 17 24 11/02/19 04:00 24 11/02/19 04:00 98.8 86 16 155/73 (100) 100 11/02/19 04:00 Mechanical Ventilator 11/02/19 03:50 93 11/02/19 03:40 83 13 24 11/02/19 00:00 Mechanical Ventilator 11/02/19 00:00 97.9 92 16 144/70 (94) 100 11/01/19 23:29 95 11/01/19 22:40 80 14 100 Mechanical Ventilator 24 83 15 24 11/01/19 20:08 90 136/58 11/01/19 20:00 97.9 85 16 136/58 (84) 100 11/01/19 20:00 Mechanical Ventilator 11/01/19 20:00 24 11/01/19 19:20 82 11/01/19 19:13 81 15 24 11/01/19 16:42 88 20 24 11/01/19 16:00 24 11/01/19 16:00 98.9 89 16 121/66 (84) 100 11/01/19 16:00 88 11/01/19 16:00 Mechanical Ventilator 11/01/19 12:49 91 14 24 Intake and Output 11/01/19 11/02/19 19:00 07:00 Intake Total 795 ml 495 ml Output Total 100 ml Balance 695 ml 495 ml Free Water 300 ml Tube Feeding 495 ml 495 ml Stool Total 100 ml # Voids 1 1 # Bowel Movements 51 Laboratory Tests 11/01/19 16:51: POC Whole Blood Glucose 161H 9/23/20 23:17: POC Whole Blood Glucose 159H 11/02/19 03:30: White Blood Count 23.1*H, Red Blood Count 3.88L, Hemoglobin 9.1L, Hematocrit 29.2L, Mean Corpuscular Volume 75L, Mean Corpuscular Hemoglobin 23.4L, Mean Corpuscular Hemoglobin Concent 31.1L, Red Cell Distribution Width 17.9H, Platelet Count 621H, Mean Platelet Volume 5.6L, Neutrophils (%) (Auto) , Lympho cytes (%) (Auto) , Monocytes (%) (Auto) , Eosinophils (%) (Auto) , Basophils (%) (Auto) , Differential Total Cells Counted 100, Neutrophils % (Manual) 70, Lymphocytes % (Manual) 15L, Monocytes % (Manual) 8, Eosinophils % (Manual) 7H, Basophils % (Manual) 0, Band Neutrophils 0, Platelet Estimate IncreasedH, Platelet Morphology Normal, Hypochromasia 1+, Anisocytosis 1+, Microcytosis 1+, Sodium Level 129L, Potassium Level 3.8, Chloride Level 94L, Carbon Dioxide Level 25, Anion Gap 10, Blood Urea Nitrogen 75H, Creatinine 3.7H, Estimat Glomerular Filtration Rate 16.0, Glucose Level 183H, Calcium Level 9.5 11/02/19 05:00: POC Whole Blood Glucose 183H 11/02/19 11:38: POC Whole Blood Glucose 142H Height (Feet): 5 Height (Inches): 10.00 Weight (Pounds): 123 Objective Clammy, diaphoretic CV RR Trach clean Lungs CTA Perma Cath RIJ. Abd SNT. BS + E No CCE Barely responsive Erica Pichardo MD Nov 02, 2019 12:27
--- NOTE | 2019-11-02 13:44 | Surgery Progress Note ---
Surgery Progress Note Subjective Procedure Performed Right femoral temporary hemodialysis catheter removal Additional Comments ill appearing no n/v labs noted exam stable Objective Last 24 Hour Vital Signs Date Time Temp Pulse Resp B/P (MAP) Pulse Ox O2 Delivery O2 Flow Rate FiO2 11/02/19 12:00 90 11/02/19 12:00 99.1 90 14 164/86 (112) 99 102 11/02/19 12:00 24 11/02/19 12:00 Mechanical Ventilator 11/02/19 10:05 90 14 100 Mechanical Ventilator 24 83 15 24 11/02/19 08:00 Mechanical Ventilator 11/02/19 08:00 88 11/02/19 08:00 24 11/02/19 08:00 98.1 90 16 148/75 (99) 100 11/02/19 06:49 99 17 24 11/02/19 04:00 24 11/02/19 04:00 98.8 86 16 155/73 (100) 100 11/02/19 04:00 Mechanical Ventilator 11/02/19 03:50 93 11/02/19 03:40 83 13 24 11/02/19 00:00 Mechanical Ventilator 11/02/19 00:00 97.9 92 16 144/70 (94) 100 11/01/19 23:29 95 11/01/19 22:40 80 14 100 Mechanical Ventilator 24 83 15 24 11/01/19 20:08 90 136/58 11/01/19 20:00 97.9 85 16 136/58 (84) 100 11/01/19 20:00 Mechanical Ventilator 11/01/19 20:00 24 11/01/19 19:20 82 11/01/19 19:13 81 15 24 11/01/19 16:42 88 20 24 11/01/19 16:00 24 11/01/19 16:00 98.9 89 16 121/66 (84) 100 11/01/19 16:00 88 11/01/19 16:00 Mechanical Ventilator I&O Intake and Output 11/01/19 11/02/19 19:00 07:00 Intake Total 795 ml 495 ml Output Total 100 ml Balance 695 ml 495 ml Free Water 300 ml Tube Feeding 495 ml 495 ml Stool Total 100 ml # Voids 1 1 # Bowel Movements 51 Dressing: other Wound: other Cardiovascular: RSR Respiratory: decreased breath sounds Abdomen: soft, non-tender, present bowel sounds Extremities: no tenderness, no cyanosis Laboratory Tests Test 11/01/19 16:51 11/01/19 23:17 11/02/19 03:30 11/02/19 05:00 POC Whole Blood Glucose 161 MG/DL (74-106) H 159 MG/DL (74-106) H 183 MG/DL (74-106) H White Blood Count 23.1 K/UL (4.8-10.8) *H Red Blood Count 3.88 M/UL (4.70-6.10) L Hemoglobin 9.1 G/DL (14.2-18.0) L Hematocrit 29.2 % (42.0-52.0) L Mean Corpuscular Volume 75 FL (80-99) L Mean Corpuscular Hemoglobin 23.4 PG (27.0-31.0) L Mean Corpuscular Hemoglobin Concent 31.1 G/DL (32.0-36.0) L Red Cell Distribution Width 17.9 % (11.6-14.8) H Platelet Count 621 K/UL (150-450) H Mean Platelet Volume 5.6 FL (6.5-10.1) L Neutrophils (%) (Auto) % (45.0-75.0) Lymphocytes (%) (Auto) % (20.0-45.0) Monocytes (%) (Auto) % (1.0-10.0) Eosinophils (%) (Auto) % (0.0-3.0) Basophils (%) (Auto) % (0.0-2.0) Differential Total Cells Counted 100 Neutrophils % (Manual) 70 % (45-75) Lymphocytes % (Manual) 15 % (20-45) L Monocytes % (Manual) 8 % (1-10) Eosinophils % (Manual) 7 % (0-3) H Basophils % (Manual) 0 % (0-2) Band Neutrophils 0 % (0-8) Platelet Estimate Increased H Platelet Morphology Normal Hypochromasia 1+ Anisocytosis 1+ Microcytosis 1+ Sodium Level 129 MMOL/L (136-145) L Potassium Level 3.8 MMOL/L (3.5-5.1) Chloride Level 94 MMOL/L (98-107) L Carbon Dioxide Level 25 MMOL/L (21-32) Anion Gap 10 mmol/L (5-15) Blood Urea Nitrogen 75 mg/dL (7-18) H Creatinine 3.7 MG/DL (0.55-1.30) H Estimat Glomerular Filtration Rate 16.0 mL/min (>60) Glucose Level 183 MG/DL (74-106) H Calcium Level 9.5 MG/DL (8.5-10.1) Test 11/02/19 11:38 POC Whole Blood Glucose 142 MG/DL (74-106) H Plan Problems: (1) Anemia (2) Hyponatremia (3) Leukocytosis Assessment & Plan: Tracheostomy, left chest pacemaker are again demonstrated. There is bilateral interstitial and airspace disease and bilateral pleural fluid again demonstrated. This appears more severe than on the prior study. Bilateral interstitial and airspace infiltrates versus edema. Bilateral pleural effusions Leukocytosis, anemia, tachycardia, abnormal labs. Wound evaluated and likely etiology of patient's sepsis. Leukocytosis etiology work-up antibiotics per infectious disease Appreciate nephrology input transfuse with dialysis We will follow with recommendations thank you allowing participation's care plan HD access temp HD discussed with medical teams line okay HD as per renal persistent leukocytosis flow cyto noted improving trending down right fem line removed wbc fluctuating h/h stable lft's elevated There is a right pleural effusion Gallbladder demonstrates tiny wall adherent nonmobile echogenic foci, some possible mural calcifications, and comet tail artifact in the anterior wall. Patient unable to report sonographic Kent's sign. Common bile duct measures 4 mm in diameter. No intrahepatic biliary ductal dilatation. Liver demonstrates normal echogenicity, no focal abnormality. There is some surface nodularity. Portal vein and hepatic veins are patent. Pancreas is incompletely visualized due to overlying bowel gas, visualized portions are unremarkable. Spleen is unremarkable. Left kidney measures 8.7 cm in length. Right kidney measures 8.9 cm length. Both kidneys demonstrate increased echogenicity. There is no hydronephrosis. No focal abnormality . Abdominal aorta is partially obscured by bowel gas, visualized portions are non-aneurysmal . A gastrostomy is noted Impression: Tiny wall adherent nonmobile gallbladder echogenic foci, may reflect wall adherent calculi, small polyps, and/or pleural calcifications. Anterior wall comet tail artifact suggests foci of adenomyomatosis. Normal caliber common bile duct Possible hepatic surface nodularity, could indicate cirrhotic change Echogenic kidneys, consistent with medical renal disease. No hydronephrosis Right pleural effusion Gastrostomy Note nonvisualization of portions of the pancreas and abdominal aorta HIDA NEGATIVE trend labs (4) Ventilator dependent (5) Right lower lobe pneumonia (6) Hypokalemia (7) Hyperkalemia (8) Anasarca (9) Decubitus skin ulcer Assessment & Plan: pt presented on admission with generalized edemae.Skin assessed under tracheostomy and no areas of concerns noted. GT Insertion is marginally erythematous with small amt slough at stoma. Unstageable Pressure Injury R elbow. Base of wound is 100% yellow slough,Borders are erythematous. Wound oozing small amt haemopurulent exudate.Darker skin tone without elevation in skin temp or erythema periwound. Pt's penis and scrotum are grossly edematous and enlarged and weeping serous exudate from numerous sites both from penis and scrotum. Two small open wounds noted at base of at base of shaft of penis ,and contreras aspect of scrotum. Both wounds oozing large amt sanguineous and serosanguineous exudate. Multiple open wounds with Biofilm at base of each wounds noted to contreras/lateral,inferior and posterior aspects of scrotum. These wounds noted to be oozing moderate amts of serosanguineous exudate. Hypertrophic scar with scattered areas of hyperpigmentation noted to Sacrum. DTPI noted to L Buttocks (L)7cm x (W)9cm. Base of wound is purple and indurated.Darker skin tone without erythema,induration or fluctuance R and L ischial tuberosities. Both heels are boggy with non-blanchable erythema. potential decline given chronic illness Tx.Plan: Cleanse wound R elbow with Saline. Apply TheraHoney, Apply Moisture Barrier Paste periwound. Cover with Optifoam drsg.Change Daily and prn. Wash GT site with soap and water.Pat dry. Apply Zinc Oxide Paste to GT site Daily. Leave Open to Air. Apply Zinc Oxide Paste to entire Scrotum, Place ABD pads to R and L lateral, and posterior aspects of scrotum TWICE daily. Apply Cavilon Skin Barrier to malleoli and both Heels. Cover each site with Optifoam drsgs. Change every 7 days and prn. Reposition at least every 2hours or as tolerated. Off-load heels with Pillows. APM/BECCA Mattress overlay. (10) Malnutrition Assessment & Plan: DAILY ESTIMATED NEEDS: Needs based on Renal, critical care, wound/ 61kg 22-30 kcals/kg 3949-5057 total kcals 1.25-2 g protein/kg 76-122 g total protein Fluid per MD, now on HD NUTRITION DIAGNOSIS: * Swallowing difficulty R/T respiratory failure, dysphagia as evidenced by trach/vent dep, PEG dep * Increased kcal/prot needs R/T wound healing as evidenced by admitted w/ multiple pressure injuries including full thickness wounds at junction of Shaft of penis, dorsal scrotum, R elbow, and DTPI @ L buttocks. CURRENT TF:Osmolite 1.2 @ 60ml/hr x 20 hrs + Garo BID ENTERAL NUTRITION RECOMMENDATIONS: Vital AF 1.2 @ 60ml/hr x 20 hrs to provide 1200ml, 1440kcal, 90g prot, 973ml free water * Rec 20 hr run time for GI rest. -> W/ improved GI status, rec Vital AF 1.2, an elemental and carb controlled TF -> monitor lytes and renal fxn closely, monitor need for renal TF -> TF @ goal will provide 1642mg K and 2025mg Phos -> HOB over 30 degrees/ water flush per MD -------- Trial of Osmolite 1.2 continue for now- Goal of 60ml/hr for 20 hrs (4 hrs bowel rest) to provide 1200ml, 1440 kcal, 67g pro, 984ml free H2O, -> Rec to add prosource 1 pack daily (11g pro) to better meet est pro needs. -> Monitor BG, K closely. Pt would require increased insulin coverage as TF at goal would provide 56g more carbs per day. ADDITIONAL RECOMMENDATIONS: * Per SNF: HT=63" UK=920 lbs (vs EMR wt of 166lbs) -> obtain re-calibrated bedscale wt, rec daily wt monitoring * Wound healing: con't Nephrovite + Grao BID/ Vit C dosing per Nephro * Monitor renal fxn and lytes closely w/ non-renal TF ->K low, phos wnl;updated mag level; rec increased insulin w/ BG labs * Daily wts w/ drop to 118-20 lbs, rec to recalibrate for accurate CBW * Consider DC Miralax if medically appropriate: +rectal tube (11) Uremia (12) CKD (chronic kidney disease) stage 5, GFR less than 15 ml/min (13) Colon distention Assessment & Plan: discussed with GI likely functional as having lots of loose bm rectal tube kub f/u s/p colonoscopy - findings reviewed with GI improved cont diet as tolerated repeat KUB Marked distention of the sigmoid colon. 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 No evidence of bowel wall thickening or pneumatosis 12 mm focus of contrast enhancement in the right pectineus muscle. While nonspecific in appearance, appearance raises concern for a possible pseudoaneurysm. Ill- defined thickening of the pectus medius muscle could indicate some intramuscular hemorrhage. The above findings were phoned to Dr. Urias at the time of interpretation Large bilateral pleural effusions Hazy pulmonary parenchymal opacities as well as dense consolidative opacities most likely represent pulmonary edema, but could represent pneumonia Evidence of anasarca elsewhere, with generalized edema of the subcutaneous fat Bladder wall thickening, raises concern for cystitis. Avalos catheter in place Colonic diverticulosis. No evidence of diverticulitis. Tracheostomy Pacemaker Gastrostomy Gastrostomy again demonstrated in satisfactory position. The stomach is otherwise unremarkable. The distal esophagus and duodenum are unremarkable. Ingested contrast reaches the colon. No small bowel distention or small bowel wall thickening. Interim placement of a rectal tube. There are a few colonic diverticula. No definite evidence of acute diverticulitis. The appendix is prominent in caliber, as previously No free or loculated intraperitoneal gas or fluid is evident. Again demonstrated is marked gaseous distention of the sigmoid colon which measures up to 12.6 cm in diameter, with the proximal aspect located laterally to the distal aspect, and caliber transition in the mesenteric root of both entry points. However, there is stool within the proximal portion which appears to be at least partially contrast opacified, and no definite persisting of the vascular pedicle demonstrated. The liver, gallbladder, bile ducts, pancreas, spleen, adrenals, kidneys are unremarkable. There are accessory splenules demonstrated. No retroperitoneal or mesenteric mass or adenopathy. No pelvic mass or adenopathy. The prostate is enlarged and protrudes into the inferior bladder. The bladder is thick-walled. Previously demonstrated Avalos catheter has been removed. Again demonstrated is a large right pleural effusion and a moderate to large left pleural effusion. Again demonstrated are compressive atelectatic changes of significant portions of both lower lobes. Pacemaker wires are seen within the heart. Previously demonstrated high attenuation focus within the right pectineus muscle is not evident. However, there is a low-attenuation area which measures 2 cm d iameter centrally which is not evident previously. There is diffuse edema of the subcutaneous fat. This is less severe than was demonstrated previously. There are degenerative proliferative changes of the lumbar spine. Impression: Abnormal configuration of the sigmoid colon, with marked distention of a sigmoid, inversion of the relationships of the proximal and descending colon, and evidence of immediately apposed transition point raises concern for sigmoid volvulus. However, similarity to the prior exam, presence of what appears to be contrast opacified stool within the dilated segment, and lack of evidence of twisting of the vascular pedicle raises the possibility that this is baseline for this patient or possibly dysfunctional in nature. Correlate with clinical findings Enlarged prostate with protrusion into the bladder floor. Bladder neoplasm not completely excludable as a result Thick-walled bladder, may indicate cystitis or be due to chronic bladder lumen obstruction related to the above Abnormalities right pectineus muscle, with a 2 cm central low attenuation area. Note that previous exam have a high attenuation focus suspicious for a small pseudoaneurysm. 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 Colonic diverticulosis. No evidence of diverticulitis Gastrostomy in good position Rectal tube in good position Large right and moderate to large left pleural effusions. Resultant compressive pulmonary atelectatic changes or graft edema subcutaneous fat, less severe than was demonstrated on prior 08/17/2019 exam. Jonathan Urias Nov 02, 2019 13:44
--- NOTE | 2019-11-02 14:00 | NUR ---
NURSE NOTES: Sylvester, the hemodialysis nurse for [facility] Nephrology spoke with this nurse at nurse station, informed this nurse they will perform dialysis on patient at approximately 1800 hours. Noted. Will continue to monitor patient.
--- NOTE | 2019-11-02 14:49 | NUR ---
CASE MANAGEMENT:REVIEW SI;PNA W/MORGANELLA. ESRD. RESP FAILURE~VENT DEPENDENT. 99.1 102 17 164/86 99% TRACH/VENT FIO2 24% WBC 23.1 H/H 9.1/29.2 NA 129 BUN 75 CR 3.7 IS;HEPARIN SUBQ Q12 COLISTIN INH Q12 CULTURELLE GT Q12 NOVOLOG INSULIN SUBQ Q6 KEREN STATUS DCP;PLACEMENT TO SUB ACUTE MARISABEL PENDING AT THIS TIME
--- NOTE | 2019-11-02 14:58 | NUR ---
INSURANCE CLINICAL/REVIEW FAXED TO [facility] RUSSELLM:HARPER P:[phone] F:[phone]
[2019-11-02 15:47] VITALS: BP 152/79
--- NOTE | 2019-11-02 19:22 | NUR ---
NURSE HAND-OFF REPORT: Important Events on Shift: Patient Status: Stable Diet: Nepro 45 ml/hr Pending Orders: None Pending Results/Labs:None Pending MD notification:None Latest Vital Signs: Temperature 98.1 , Pulse 86 , B/P 152 /79 , Respiratory Rate 20 , O2 SAT 100 , Mechanical Ventilator, O2 Flow Rate 15.0 . Vital Sign Comment: Stable EKG Rhythm: V-Paced Rhythm change?: N MD Notified?: N - MD Response: Latest Delacruz Fall Score: 70 Fall Risk: High Risk Safety Measures: Call light Within Reach, Bed Alarm Zone 2, Side Rails Side Rails x3, Bed position Low and Locked. Fall Precautions: Yellow Socks Yellow Gown Patient Fall Education Report given to TAMICA Quinones.
--- NOTE | 2019-11-02 19:49 | NUR ---
NURSE NOTES: Report received from TAMICA Espino. Observed pt lying in the bed, obtunded, HD on going at this time, VS WNL. Trach to vent, Portex 8, AC 12, TV 550, FIO2 24%, PEEP 5, no sob. GT intact, running Nepro at 45cc/hr, no residual. Rectal tube intact, draining well. IV on R FA 20G, SL , intact. Bed in the lowest position. Side rails up x3. Will continue to monitor.
[2019-11-02 20:00] VITALS: BP 140/66
[2019-11-02] MEDS: Dyna-Hex 2% Top Sol 2oz TOPIC SCH (21:01)
--- NOTE | 2019-11-02 21:31 | General Progress Note ---
Subjective Allergies: Coded Allergies: No Known Allergies (Unverified , 06/10/19) Subjective above noted NAD on TF non communicative Objective Last 24 Hour Vital Signs Date Time Temp Pulse Resp B/P (MAP) Pulse Ox O2 Delivery O2 Flow Rate FiO2 11/02/19 20:00 Mechanical Ventilator 11/02/19 20:00 97.7 104 21 140/66 (90) 97 90 11/02/19 20:00 24 11/02/19 20:00 105 11/02/19 18:49 86 20 24 11/02/19 16:00 Mechanical Ventilator 11/02/19 16:00 24 11/02/19 16:00 96 11/02/19 15:47 98.1 90 14 152/79 (103) 100 90 11/02/19 14:52 90 16 24 11/02/19 12:00 90 11/02/19 12:00 99.1 90 14 164/86 (112) 99 102 11/02/19 12:00 24 11/02/19 12:00 Mechanical Ventilator 11/02/19 10:05 90 14 100 Mechanical Ventilator 24 83 15 24 11/02/19 08:00 Mechanical Ventilator 11/02/19 08:00 88 11/02/19 08:00 24 11/02/19 08:00 98.1 90 16 148/75 (99) 100 11/02/19 06:49 99 17 24 11/02/19 04:00 24 11/02/19 04:00 98.8 86 16 155/73 (100) 100 11/02/19 04:00 Mechanical Ventilator 11/02/19 03:50 93 11/02/19 03:40 83 13 24 11/02/19 00:00 Mechanical Ventilator 11/02/19 00:00 97.9 92 16 144/70 (94) 100 11/01/19 23:29 95 11/01/19 22:40 80 14 100 Mechanical Ventilator 24 83 15 24 Intake and Output 11/01/19 11/02/19 19:00 07:00 Intake Total 795 ml 495 ml Output Total 100 ml Balance 695 ml 495 ml Free Water 300 ml Tube Feeding 495 ml 495 ml Stool Total 100 ml # Voids 1 1 # Bowel Movements 51 Laboratory Tests 11/01/19 23:17: POC Whole Blood Glucose 159H 11/02/19 03:30: White Blood Count 23.1*H, Red Blood Count 3.88L, Hemoglobin 9.1L, Hematocrit 29.2L, Mean Corpuscular Volume 75L, Mean Corpuscular Hemoglobin 23.4L, Mean Corpuscular Hemoglobin Concent 31.1L, Red Cell Distribution Width 17.9H, Platelet Count 621H, Mean Platelet Volume 5.6L, Neutrophils (%) (Auto) , Lymphocytes (%) (Auto) , Monocytes (%) (Auto) , Eosinophils (%) (Auto) , Basophils (%) (Auto) , Differential Total Cells Counted 100, Neutrophils % (Manual) 70, Lymphocytes % (Manual) 15L, Monocytes % (Manual) 8, Eosinophils % (Manual) 7H, Basophils % (Manual) 0, Band Neutrophils 0, Platelet Estimate IncreasedH, Platelet Morphology Normal, Hypochromasia 1+, Anisocytosis 1+, Microcytosis 1+, Sodium Level 129L, Potassium Level 3.8, Chloride Level 94L, Carbon Dioxide Level 25, Anion Gap 10, Blood Urea Nitrogen 75H, Creatinine 3.7H, Estimat Glomerular Filtration Rate 16.0, Glucose Level 183H, Calcium Level 9.5 11/02/19 05:00: POC Whole Blood Glucose 183H 11/02/19 11:38: POC Whole Blood Glucose 142H 11/02/19 16:40: POC Whole Blood Glucose 154H Height (Feet): 5 Height (Inches): 10.00 Weight (Pounds): 123 Objective Debilitated AA man NCAT (+) trach coarse BS RR abd less distended, anasarca, (+) GT, (+) rectal tube ext contracted Assessment/Plan Assessment/Plan: Assessment - abdominal distention, due to colonic dysmotility, - colonoscopy negative to hepatic flexure - diarrhea - presumed TF related - abnormal LFT - ? etiology --> HIDA negative and CT negative - Anemia - leukocytosis - stool OB (+) - EGD --> gastritis - Renal failure - Anasarca - resp failure, trach - b/l pleural effusions - dysphagia, GT - encephalopathy, contracted - poor px Recommendations - continue TF - check hepatitis markers - negative - rectal tube - roll side to side as feasible (hard due to severe contractions) - Elevate HOB - f/u labs - PPI - abx - supportive care Ronny Mustafa MD Nov 02, 2019 21:31
--- NOTE | 2019-11-02 21:40 | NUR ---
NURSE NOTES: HD done, VS WNL, no output noted. Scheduled meds given. Reposition done. Oral care given. Will continue to monitor.
[2019-11-03] VITALS: BP 130/49
--- NOTE | 2019-11-03 | NUR ---
NURSE NOTES: No acute distress noted at this time. VS WNL. V-pacing on the cardiac specialist. Tolerating current vent setting. Reposition done. Oral care given. Will continue to monitor.
[2019-11-03] MEDS: NovoLOG Insulin Flexpen SUBQ SCH ×4 (00:02→17:21)
[2019-11-03 04:00] VITALS: BP 149/79
--- NOTE | 2019-11-03 04:54 | NUR ---
NURSE NOTES: Bed bath given. AM care done. No acute distress noted. Will continue anay monitor.
--- NOTE | 2019-11-03 07:00 | NUR ---
NURSE HAND-OFF REPORT: Important Events on Shift: HD done, no output, BP stable. V-pacing with HR of 100-110 noted. Patient Status: Stable Diet: Nepro at 45 Pending Orders: n Pending Results/Labs:n Pending MD notification:n Latest Vital Signs: Temperature 99.1 , Pulse 90 , B/P 149 /79 , Respiratory Rate 19 , O2 SAT 100 , Mechanical Ventilator, O2 Flow Rate 15.0 . Vital Sign Comment: [] EKG Rhythm: V paced w/bbb Rhythm change?: N MD Notified?: N - MD Response: Latest Delacruz Fall Score: 70 Fall Risk: High Risk Safety Measures: Call light Within Reach, Bed Alarm Zone 2, Side Rails Side Rails x3, Bed position Low and Locked. Fall Precautions: Yellow Socks Yellow Gown Patient Fall Education Report given to TAMICA Espino.
--- NOTE | 2019-11-03 07:33 | NUR ---
NURSE NOTES: Received pt in bed, resting .On trac vent, saturating well. In no apparent distress noted. Iv site on r forearm SL gauge 20, intact, patent and flushed well. R jugular permaCath in place, no signs of bleeding. Gtube in place, patent and flushed well. No residual noted. Feeding stop @ 0600 will resume @10Amm with 750ml remaining on the container. . Rectal tube in place with no output on the bag. Safety measures in place, call light within reach. Will continue to monitor through out the shift.
[2019-11-03 08:00] VITALS: BP 127/60
[2019-11-03] MEDS: Lactobacillus-GG tablet GT SCH ×2 (08:05→21:28)
[2019-11-03] MEDS: Minoxidil 2.5mg tab GT SCH (08:05)
[2019-11-03] MEDS: Metoprolol Tartrate 100mg tab GT SCH ×2 (08:06→21:00)
--- NOTE | 2019-11-03 08:18 | General Progress Note ---
Subjective Allergies: Coded Allergies: No Known Allergies (Unverified , 06/10/19) Subjective remains ill on vent/ no change on HD vitals noted= transient hypotension Objective Last 24 Hour Vital Signs Date Time Temp Pulse Resp B/P (MAP) Pulse Ox O2 Delivery O2 Flow Rate FiO2 11/03/19 08:06 98 127/60 11/03/19 08:05 127/60 11/03/19 04:00 Mechanical Ventilator 11/03/19 04:00 99.1 100 19 149/79 (102) 100 90 11/03/19 04:00 109 11/03/19 04:00 24 11/03/19 03:19 104 20 24 11/03/19 00:00 99.1 94 19 130/49 (76) 100 90 11/03/19 00:00 24 11/03/19 00:00 Mechanical Ventilator 11/03/19 00:00 96 11/02/19 23:14 61 14 100 Mechanical Ventilator 24 63 15 24 11/02/19 21:43 105 140/66 11/02/19 20:00 Mechanical Ventilator 11/02/19 20:00 97.7 104 21 140/66 (90) 97 90 11/02/19 20:00 24 11/02/19 20:00 105 11/02/19 18:49 86 20 24 11/02/19 16:00 Mechanical Ventilator 11/02/19 16:00 24 11/02/19 16:00 96 11/02/19 15:47 98.1 90 14 152/79 (103) 100 90 11/02/19 14:52 90 16 24 11/02/19 12:00 90 11/02/19 12:00 99.1 90 14 164/86 (112) 99 102 11/02/19 12:00 24 11/02/19 12:00 Mechanical Ventilator 11/02/19 10:05 90 14 100 Mechanical Ventilator 24 83 15 24 Intake and Output 11/02/19 11/03/19 19:00 07:00 Intake Total 90 ml 690 ml Output Total 50 ml Balance 90 ml 640 ml Free Water 150 ml Tube Feeding 90 ml 540 ml Stool Total 50 ml Hemodialysis UF 0 ml # Voids 1 # Bowel Movements 103 3 Laboratory Tests 11/02/19 11:38: POC Whole Blood Glucose 142H 11/02/19 16:40: POC Whole Blood Glucose 154H 11/02/19 23:13: POC Whole Blood Glucose 147H 11/03/19 05:16: POC Whole Blood Glucose 143H Height (Feet): 5 Height (Inches): 10.00 Weight (Pounds): 123 Objective GENERAL: Ill-appearing male, chronically debilitated. HEENT: Tracheostomy in midline. Questionable fullness in the submandibular region. LUNGS: Coarse breath sounds. reduced breath sounds CARDIAC: S1, S2. Regular rate and rhythm. borderline tachy ABDOMEN: Soft. G-tube. EXTREMITIES: With noted edema. NEUROLOGICAL: Poorly responsive, weak diffusely. Assessment/Plan Assessment/Plan: IMPRESSION: 1. anemia. 2. fevers improved 3. Leukocytosis. 4. hypotension 5. Acute on chronic renal failure. 6. Hyponatremia. 7. Severe protein-calorie malnutrition. 8. Significantly elevated C-reactive protein concerning for infectious etiology. 9. Tracheostomy, G-tube. 10. Ventilator dependence. 11. anasarca 12. Hematuria 13. V pacing 14. hyponatremia 15. transaminitis, HIDA negative PLAN colisitn and acyclovir chronic care; unable to place care noted- bolus prn for hypotension on vent/ no wean monitor labs and optimize ID follow up - wbc now worse dialysis ongoing- adjust lytes prognosis poor for recovery impression, plan, and exam edited and reviewed in detail care discussed with Kain Tovar MD Nov 03, 2019 08:18
[2019-11-03] MEDS: Heparin 5000 units/ml inj SUBQ SCH ×2 (08:30→21:29)
[2019-11-03] MEDS: Zinc Oxide Oint 2oz TOPIC SCH ×2 (08:33→21:29)
--- NOTE | 2019-11-03 08:41 | Hematology/Onc Progress Note ---
Assessment/Plan Assessment/Plan Assessment/recs # Anemia due to chronic disease/kidney disease as well, gi bleed + occult + noted --> was on iron in the past, now on hold --> has been started on Epogen sq --> as per renal care --> egd done and shows gastritis --> on ppi --> egd showed gastritis, colo recently done --> hgb 9-->8. 7-->7.6-->9.2-->8.9-->9.2->9.3-->8.8->9.9-->9.2-->8.1-->8.7-->7.9-->8.6-->8.9--> 8.2->9-->9.3->8.9-->9.5-->10.6->9.2-->10->8.9--> 8.3-->8.9-->9.9-->9.3-->9-->9.3->11-->8.6->8.7>9-->8.4-->9.1 --> spep ordered->wnl # Leukocytosis - with multiple infections, VRE UTI, flow is negative --> wbc trend 33-->28-->25->23->22->23->24->17.3-->17-->14->16-->15.6-->14-->14->13 ->19->18->17->22->22->19->17-->18->20-->15-->14->16-->14-->17->18-->17->15-->16- ->17->28->19-->21-->19-->23 --> on abx, linezolid and zosyn--> zosyn-->gent-->off-->vanc/zosyn-->cefepime/colistin --> + blood cultures with coag neg staph likely contaminated --> as per id recs --> has ordered a flow cytometry (with pathology) --> does show increased nK cell activity --> JOURDAN 2 and bcr-abl labs ordered (these are send outs)->negative --> plt 585-->613-->649-->669->663-->529-->506-->620-->720 # Elevated ddimer on admission --> duplex lower legs neg for dvt # Respiratory failure --> per pulm, s/p trach --> COVID 19 test negative x 2 # Hyperlipidemia --> statin po # Dysphagia s/p gtube with nepro --> per gi # ESRD with r fem julito --> hd as per renal # Dvt ppx heparin sq Appreciate consultation and matt Rn Subjective Allergies: Coded Allergies: No Known Allergies (Unverified , 06/10/19) All Systems: reviewed and negative except above Subjective 08/15 meds noted, no bleeding, hgb 8.8, wbc 28, path flow pending 08/16 flow pending dw pathologist, results pending, wbc 25, hgb 9 08/17 labs reviewed, meds reviewed, meds noted, no night sweats 08/19 remains obtunded, on vent/trach, no bleeding wbc 21.7 08/20 labs have been reviewed, no bleeding, wbc still elev, path reviewed 08/21 labs are noted, no bleeding, on vent, wbc better 08/22 labs noted, no bleeding, meds reviewed, wbc 24 hgb 7.6 08/23 vent, off abx, c diff negative, h/h stable 08/24 labs reviewed, on abx, wbc 17, hgb 8.9, no hemolysis 08/26 reviewed flow and is negative for leukemia, matt rn 08/27 meds reviewed, no night sweats, matt rn, no major bleeding 08/28 meds reivewed, labs noted 08/29 wbc is stable, approx 15, hgb 8.8, no hemolysis 08/30 labs are noted, is for colo today, hgb 9.9 08/31 right fem julito in place, unchanged, hgb 9.2, gi aware 09/01 labs noted, hgb 8.8, plt >600, no bleeding 09/02 labs noted, no bleeding, with elev wbc still, no new changes 09/03 meds are noted, no bleeding, labs reviewed hgb 8.6 09/04 no major events, hd as per renal, abx, no bleeding hgb low 09/05 labs are noted, no bleeding, meds have been reviewed 09/06 no new labs no hemolysis, cbc is noted, no bleeding 09/07 meds reviewed, no bleeding, matt rn, permacath functioning well 09/09 meds reviewed, wbc still elevated, as per id recs, cbc noted 09/10 is obtunded, with gutbe in place, labs reviewed 09/11 obtunded, as per id, observe now off abx, labs noted, wbc 19 09/12 cbc is pending, remains on epogen, also off abx 09/13 labs reviewed, no bleeding, elev wbc, no night sweats 09/14 meds noted, no bleeding, wbc 19, hgb 9.5, no night sweats 09/21 obtunded, remains on vent, labs noted, no bleeding, hgb 8.9 09/22 obtunded, labs noted, no bleeding, on vent, unchanged 09/23 unchanges, wbc remains elevated 20k, on abx, on vent 09/24 labs have been reviewed, no bleeding, wbc 15, may need abx 09/25 formula gtube changed, labs noted, remains obtunded, hgb 9.3 09/26 labs have been reviewed, no bleeding, matt rn, no night sweats 09/27 meds reviewed, no bleeding, wbc 14, on abx, remains obtunded 09/28 remains obtunded, no bleeding, wbc better, hgb 8.9, no hemolysis, plt 506 09/30 on colisitn, wbc elevated, cefepime added per id, hgb stable 10/01 labs reviewed, no bleeding, matt rn, no major events noted, wbc 14, hgb 10.6 10/02 labs have been noted, hgb 9.2, wbc 17, on abx, matt rn 10/03 continue on tube feeds, no bleeding, on vent, wbc remains elevated 10/04 remains ibtunded, is on a mechanical ventilator with tube feeds noted 10/05 labs are noted, hgb 8.6, wbc remains elevated, have ordered for spep 10/07 obtunded on vent, with gtube feeds, labs reviewed, matt rn 10/08 labs are noted, on vent/trach, hgb 10.2, remains obtunded 10/09 labns noted, wbc 15, hgb 8.9, remains altered, on tfs 10/10 labs noted, holding tube feeds, matt rn, hg stable 8.3 currently 10/11 remains on tfs, supportive care, labs noted, no bleeding 10/12 remains obtunded, hgb 8.9, no hemolysis is seen 10/14 labs reviewed, no bleeding, pending potential hd if rn available 10/15 is on vent, with gtube, labs reviewed, no bleeding, to get hd soon 10/16 remains on vent, matt rn at bedside, wbc 15, abx prn, plt also higher, will monitor 10/17 on vent, continue on tube feeds via gtube, labs improved 10/18 labs noted, remains on vent, and tube feeds, no major changes 10/19 nad, no bleeding, labs reviewed, no night sweats, bp elevated, cards aware 10/21 labs pending, with gtube running, on mec vent, abx off 10/22 labs reviewed, no major changes, wbc 18, plt 791k, on gtube feeds 10/23 labs reviewed, meds noted, on epogen and lovenox sq, obtunded, is nv 9. labs are noted, wbc 28, hgb 8.6, no hemolysis is noted 10/27 labs reviewed, on mech vent, on gtube feeds, no bleeding wbc 21 10/28 labs noted, wbc 19, plt remains elevated, hd as per renal Dr. Frank 10/29 obtunded, gt feedings on hold, wbc 19, hgb 9, no bleeding 10/30 labs reviewed, no bleeding, wbc 21, hgb 9, hd as per renal care 10/31 labs are noted, wbc 19, hgb 8.4, on vent, obtunded 11/01 obtunded state, no bleeding, meds reviewed, on heparin started today, matt rn 11/02 nv, trach, no bleeding, wbc has increased likely due to infection Objective Objective Current Medications Medications (Trade) Dose Ordered Sig/Leonel Route PRN Reason Start Time Stop Time Status Last Admin Dose Admin Acetaminophen (Tylenol) 650 mg Q6H PRN GT Temp >100.5 10/21/19 20:45 11/20/19 20:44 10/24/19 10:25 Chlorhexidine Gluconate (Felipa-Hex 2%) 1 applic DAILY@1999 TOPIC 09/12/19 20:00 12/11/19 19:59 11/02/19 21:01 Clonidine HCl (Catapres Tab) 0.1 mg Q4H PRN GT For High Blood Pressure 09/09/19 12:30 12/08/19 05:29 09/15/19 04:10 Colistimethate Sodium (Colistin *inhalation use only*) 75 mg Q12HR@ INH 10/30/19 22:00 11/06/19 21:59 11/02/19 22:35 Dextrose (Dextrose 50%) 25 ml Q30M PRN IV Hypoglycemia 08/09/19 07:30 11/07/19 07:29 Dextrose (Dextrose 50%) 50 ml Q30M PRN IV Hypoglycemia 08/09/19 07:30 11/07/19 07:29 Epoetin Andreas (Epoetin Andreas(ESRD on dialysis)) 8,000 unit WED-WED-WED SUBQ 10/25/19 21:00 01/23/20 20:59 11/01/19 20:08 Famotidine (Pepcid) 20 mg DAILY GT 08/30/19 09:00 11/28/19 08:59 11/03/19 08:05 Heparin Sodium (Porcine) (Heparin 5000 units/ml) 5,000 units EVERY 12 HOURS SUBQ 11/02/19 09:00 12/17/19 08:59 11/03/19 08:30 Insulin Aspart (NovoLOG) Q6HR SUBQ 09/25/19 18:00 11/07/19 11:29 11/03/19 05:48 Lactobacillus Acidophilus (Culturelle) 1 tab EVERY 12 HOURS GT 10/03/19 21:00 12/13/19 17:59 11/03/19 08:05 Loperamide HCl (Imodium) 2 mg Q6H PRN NG Diarrhea 10/15/19 07:45 11/14/19 07:44 Metoprolol Tartrate (Lopressor) 200 mg Q12HR GT 08/09/19 09:00 11/07/19 08:59 11/03/19 08:06 Minoxidil (Loniten) 5 mg DAILY GT 08/09/19 09:00 11/07/19 08:59 11/03/19 08:05 Sodium Chloride 500 ml @ 999 mls/hr Q31M PRN IV sbp<90 10/28/19 21:30 11/27/19 21:29 Zinc Oxide (Zinc Oxide) 1 applic EVERY 12 HOURS TOPIC 10/03/19 09:00 11/08/19 17:59 11/03/19 08:33 Last 24 Hour Vital Signs Date Time Temp Pulse Resp B/P (MAP) Pulse Ox O2 Delivery O2 Flow Rate FiO2 11/03/19 08:06 98 127/60 11/03/19 08:05 127/60 11/03/19 08:00 24 11/03/19 08:00 97.9 97 16 127/60 (82) 100 86 11/03/19 04:00 Mechanical Ventilator 11/03/19 04:00 99.1 100 19 149/79 (102) 100 90 11/03/19 04:00 109 11/03/19 04:00 24 11/03/19 03:19 104 20 24 11/03/19 00:00 99.1 94 19 130/49 (76) 100 90 11/03/19 00:00 24 11/03/19 00:00 Mechanical Ventilator 11/03/19 00:00 96 11/02/19 23:14 61 14 100 Mechanical Ventilator 24 63 15 24 11/02/19 21:43 105 140/66 11/02/19 20:00 Mechanical Ventilator 11/02/19 20:00 97.7 104 21 140/66 (90) 97 90 11/02/19 20:00 24 11/02/19 20:00 105 11/02/19 18:49 86 20 24 11/02/19 16:00 Mechanical Ventilator 11/02/19 16:00 24 11/02/19 16:00 96 11/02/19 15:47 98.1 90 14 152/79 (103) 100 90 11/02/19 14:52 90 16 24 11/02/19 12:00 90 11/02/19 12:00 99.1 90 14 164/86 (112) 99 102 11/02/19 12:00 24 11/02/19 12:00 Mechanical Ventilator 11/02/19 10:05 90 14 100 Mechanical Ventilator 24 83 15 24 11/02/19 08:00 Mechanical Ventilator 11/02/19 08:00 88 11/02/19 08:00 24 11/02/19 08:00 98.1 90 16 148/75 (99) 100 11/02/19 06:49 99 17 24 11/02/19 04:00 24 11/02/19 04:00 98.8 86 16 155/73 (100) 100 11/02/19 04:00 Mechanical Ventilator 11/02/19 03:50 93 11/02/19 03:40 83 13 24 11/02/19 00:00 Mechanical Ventilator 11/02/19 00:00 97.9 92 16 144/70 (94) 100 11/01/19 23:29 95 11/01/19 22:40 80 14 100 Mechanical Ventilator 24 83 15 24 11/01/19 20:08 90 136/58 11/01/19 20:00 97.9 85 16 136/58 (84) 100 11/01/19 20:00 Mechanical Ventilator 11/01/19 20:00 24 11/01/19 19:20 82 11/01/19 19:13 81 15 24 11/01/19 16:42 88 20 24 11/01/19 16:00 24 11/01/19 16:00 98.9 89 16 121/66 (84) 100 11/01/19 16:00 88 11/01/19 16:00 Mechanical Ventilator 11/01/19 12:49 91 14 24 11/01/19 12:00 Mechanical Ventilator 11/01/19 12:00 93 11/01/19 12:00 98.1 94 16 115/53 (73) 100 11/01/19 12:00 24 11/01/19 11:15 91 15 100 Mechanical Ventilator 24 95 14 24 11/01/19 08:58 112 16 24 Intake and Output 11/02/19 11/03/19 19:00 07:00 Intake Total 90 ml 690 ml Output Total 50 ml Balance 90 ml 640 ml Free Water 150 ml Tube Feeding 90 ml 540 ml Stool Total 50 ml Hemodialysis UF 0 ml # Voids 1 # Bowel Movements 103 3 Labs Test 10/31/19 11:50 10/31/19 23:15 11/01/19 05:02 11/01/19 08:15 POC Whole Blood Glucose 177 MG/DL (74-106) 241 MG/DL (74-106) 234 MG/DL (74-106) White Blood Count 19.4 K/UL (4.8-10.8) Red Blood Count 3.83 M/UL (4.70-6.10) Hemoglobin 8.8 G/DL (14.2-18.0) Hematocrit 28.6 % (42.0-52.0) Mean Corpuscular Volume 75 FL (80-99) Mean Corpuscular Hemoglobin 22.9 PG (27.0-31.0) Mean Corpuscular Hemoglobin Concent 30.6 G/DL (32.0-36.0) Red Cell Distribution Width 17.7 % (11.6-14.8) Platelet Count 620 K/UL (150-450) Mean Platelet Volume 5.6 FL (6.5-10.1) Neutrophils (%) (Auto) % (45.0-75.0) Lymphocytes (%) (Auto) % (20.0-45.0) Monocytes (%) (Auto) % (1.0-10.0) Eosinophils (%) (Auto) % (0.0-3.0) Basophils (%) (Auto) % (0.0-2.0) Differential Total Cells Counted 100 Neutrophils % (Manual) 67 % (45-75) Lymphocytes % (Manual) 13 % (20-45) Monocytes % (Manual) 8 % (1-10) Eosinophils % (Manual) 11 % (0-3) Basophils % (Manual) 1 % (0-2) Band Neutrophils 0 % (0-8) Platelet Estimate Increased Platelet Morphology Normal Anisocytosis 1+ Sodium Level 136 MMOL/L (136-145) Potassium Level 3.5 MMOL/L (3.5-5.1) Chloride Level 99 MMOL/L (98-107) Carbon Dioxide Level 26 MMOL/L (21-32) Anion Gap 11 mmol/L (5-15) Blood Urea Nitrogen 51 mg/dL (7-18) Creatinine 3.0 MG/DL (0.55-1.30) Estimat Glomerular Filtration Rate 20.3 mL/min (>60) Glucose Level 181 MG/DL (74-106) Calcium Level 9.2 MG/DL (8.5-10.1) Test 11/01/19 11:33 9/23/20 16:51 11/01/19 23:17 11/02/19 03:30 POC Whole Blood Glucose 143 MG/DL (74-106) 161 MG/DL (74-106) 159 MG/DL (74-106) White Blood Count 23.1 K/UL (4.8-10.8) Red Blood Count 3.88 M/UL (4.70-6.10) Hemoglobin 9.1 G/DL (14.2-18.0) Hematocrit 29.2 % (42.0-52.0) Mean Corpuscular Volume 75 FL (80-99) Mean Corpuscular Hemoglobin 23.4 PG (27.0-31.0) Mean Corpuscular Hemoglobin Concent 31.1 G/DL (32.0-36.0) Red Cell Distribution Width 17.9 % (11.6-14.8) Platelet Count 621 K/UL (150-450) Mean Platelet Volume 5.6 FL (6.5-10.1) Neutrophils (%) (Auto) % (45.0-75.0) Lymphocytes (%) (Auto) % (20.0-45.0) Monocytes (%) (Auto) % (1.0-10.0) Eosinophils (%) (Auto) % (0.0-3.0) Basophils (%) (Auto) % (0.0-2.0) Differential Total Cells Counted 100 Neutrophils % (Manual) 70 % (45-75) Lymphocytes % (Manual) 15 % (20-45) Monocytes % (Manual) 8 % (1-10) Eosinophils % (Manual) 7 % (0-3) Basophils % (Manual) 0 % (0-2) Band Neutrophils 0 % (0-8) Platelet Estimate Increased Platelet Morphology Normal Hypochromasia 1+ Anisocytosis 1+ Microcytosis 1+ Sodium Level 129 MMOL/L (136-145) Potassium Level 3.8 MMOL/L (3.5-5.1) Chloride Level 94 MMOL/L (98-107) Carbon Dioxide Level 25 MMOL/L (21-32) Anion Gap 10 mmol/L (5-15) Blood Urea Nitrogen 75 mg/dL (7-18) Creatinine 3.7 MG/DL (0.55-1.30) Estimat Glomerular Filtration Rate 16.0 mL/min (>60) Glucose Level 183 MG/DL (74-106) Calcium Level 9.5 MG/DL (8.5-10.1) Test 11/02/19 05:00 11/02/19 11:38 11/02/19 16:40 11/02/19 23:13 POC Whole Blood Glucose 183 MG/DL (74-106) 142 MG/DL (74-106) 154 MG/DL (74-106) 147 MG/DL (74-106) Test 11/03/19 05:16 POC Whole Blood Glucose 143 MG/DL (74-106) Height (Feet): 5 Height (Inches): 10.00 Weight (Pounds): 123 Objective Physical Exam General Appearance: nad, Chronically Ill Head: normocephalic Eyes: right eye PERRL - Will not open left eye ENT: moist mucus membranes Neck: other - submandibular mass R, fairly rigid with resistance to rotation to L, tracheotomy Respiratory: decreased breath sounds, crackles, other - pacemaker, vent+ Cardiovascular: regular rate, rhythm, edema - anasarca Gastrointestinal: non tender, distended, other - G tube Genitourinary: other Musculoskeletal: other - Contractures all extremities Neurologic: sensory intact, motor weakness, responsive Psychiatric: other Skin: Decubitus/Ulcer - Stage III right elbow, stage III left elbow, stage II sacrum, stage III scrotum, warm/dry Fitz Campos MD Nov 03, 2019 08:41
--- NOTE | 2019-11-03 09:28 | NUR ---
CASE MANAGEMENT: REVIEW 11/03/2019 SI:SEPSIS. VS: T 97.9 HR 97 RR 16 B/P 127/60 SATS 100% MECH VENT FIO2 24 LABS: NO LABS TODAY IS:LONITEN GT QD LOPRESSOR GT Q12H COLISTIN INH Q12H INSULIN ASPART SUBQ Q6H SDU DCP: SNF
--- NOTE | 2019-11-03 09:34 | NUR ---
INSURANCE CLINICAL/REVIEW FAXED TO [facility] RUSSELLM:HARPER P:[phone] F:[phone]
[2019-11-03] MEDS: Colistin for inhalation INH SCH ×2 (10:41→22:52)
--- NOTE | 2019-11-03 11:39 | Infectious Diseases Prog Note ---
"Assessment/Plan Assessment/Plan antibiotics : inhaled colistin A 1. morganella | klebsiella pneumonia 2. respiratory failure 3. leucocytosis improving 4. COVID 19 test negative x 2 5. renal failure on HD P 1. continue inhaled colistin 2 more days 2. will follow up cultures Subjective ROS Limited/Unobtainable: Yes Allergies: Coded Allergies: No Known Allergies (Unverified , 06/10/19) Objective Last 24 Hour Vital Signs Date Time Temp Pulse Resp B/P (MAP) Pulse Ox O2 Delivery O2 Flow Rate FiO2 11/03/19 10:51 98 15 100 Mechanical Ventilator 24 99 17 24 11/03/19 08:06 98 127/60 11/03/19 08:05 127/60 11/03/19 08:00 Mechanical Ventilator 11/03/19 08:00 24 11/03/19 08:00 97.9 97 16 127/60 (82) 100 86 11/03/19 08:00 96 11/03/19 07:56 79 14 24 11/03/19 04:00 Mechanical Ventilator 11/03/19 04:00 99.1 100 19 149/79 (102) 100 90 11/03/19 04:00 109 11/03/19 04:00 24 11/03/19 03:19 104 20 24 11/03/19 00:00 99.1 94 19 130/49 (76) 100 90 11/03/19 00:00 24 11/03/19 00:00 Mechanical Ventilator 11/03/19 00:00 96 11/02/19 23:14 61 14 100 Mechanical Ventilator 24 63 15 24 11/02/19 21:43 105 140/66 11/02/19 20:00 Mechanical Ventilator 11/02/19 20:00 97.7 104 21 140/66 (90) 97 90 11/02/19 20:00 24 11/02/19 20:00 105 11/02/19 18:49 86 20 24 11/02/19 16:00 Mechanical Ventilator 11/02/19 16:00 24 11/02/19 16:00 96 11/02/19 15:47 98.1 90 14 152/79 (103) 100 90 11/02/19 14:52 90 16 24 11/02/19 12:00 90 11/02/19 12:00 99.1 90 14 164/86 (112) 99 102 11/02/19 12:00 24 11/02/19 12:00 Mechanical Ventilator Height (Feet): 5 Height (Inches): 10.00 Weight (Pounds): 123 HEENT: status post trach Respiratory/Chest: lungs clear Cardiovascular: normal rate, regular rhythm, no gallop/murmur Abdomen: soft, non tender, other - GT Extremities: no edema, other - right subclavian catheter Laboratory Tests Test 11/02/19 11:38 11/02/19 16:40 11/02/19 23:13 11/03/19 05:16 POC Whole Blood Glucose 142 MG/DL (74-106) H 154 MG/DL (74-106) H 147 MG/DL (74-106) H 143 MG/DL (74-106) H Current Medications Medications (Trade) Dose Ordered Sig/Leonel Route PRN Reason Start Time Stop Time Status Last Admin Dose Admin Acetaminophen (Tylenol) 650 mg Q6H PRN GT Temp >100.5 10/21/19 20:45 11/20/19 20:44 10/24/19 10:25 Chlorhexidine Gluconate (Felipa-Hex 2%) 1 applic DAILY@1999 TOPIC 09/12/19 20:00 12/11/19 19:59 11/02/19 21:01 Clonidine HCl (Catapres Tab) 0.1 mg Q4H PRN GT For High Blood Pressure 09/09/19 12:30 12/08/19 05:29 09/15/19 04:10 Colistimethate Sodium (Colistin *inhalation use only*) 75 mg Q12HR@ INH 10/30/19 22:00 11/06/19 21:59 11/03/19 10:41 Dextrose (Dextrose 50%) 25 ml Q30M PRN IV Hypoglycemia 08/09/19 07:30 11/07/19 07:29 Dextrose (Dextrose 50%) 50 ml Q30M PRN IV Hypoglycemia 08/09/19 07:30 11/07/19 07:29 Epoetin Andreas (Epoetin Andreas(ESRD on dialysis)) 8,000 unit WED-WED-WED SUBQ 10/25/19 21:00 01/23/20 20:59 11/01/19 20:08 Famotidine (Pepcid) 20 mg DAILY GT 08/30/19 09:00 11/28/19 08:59 11/03/19 08:05 Heparin Sodium (Porcine) (Heparin 5000 units/ml) 5,000 units EVERY 12 HOURS SUBQ 11/02/19 09:00 12/17/19 08:59 11/03/19 08:30 Insulin Aspart (NovoLOG) Q6HR SUBQ 09/25/19 18:00 11/07/19 11:29 11/03/19 05:48 Lactobacillus Acidophilus (Culturelle) 1 tab EVERY 12 HOURS GT 10/03/19 21:00 12/13/19 17:59 11/03/19 08:05 Loperamide HCl (Imodium) 2 mg Q6H PRN NG Diarrhea 10/15/19 07:45 11/14/19 07:44 Metoprolol Tartrate (Lopressor) 200 mg Q12HR GT 08/09/19 09:00 11/07/19 08:59 11/03/19 08:06 Minoxidil (Loniten) 5 mg DAILY GT 08/09/19 09:00 11/07/19 08:59 11/03/19 08:05 Sodium Chloride 500 ml @ 999 mls/hr Q31M PRN IV sbp<90 10/28/19 21:30 11/27/19 21:29 Zinc Oxide (Zinc Oxide) 1 applic EVERY 12 HOURS TOPIC 10/03/19 09:00 11/08/19 17:59 11/03/19 08:33 Farnaz Lyle MD Nov 03, 2019 11:39"
--- NOTE | 2019-11-03 11:42 | Nephrology Progress Note ---
Assessment/Plan Plan Septic Shock -Restarted IV Abx per ID. ESRD - HD TTS + IVF boluses. Anemia of CKD -TUYET. Subjective Subjective Obtunded. Objective Objective Last 24 Hour Vital Signs Date Time Temp Pulse Resp B/P (MAP) Pulse Ox O2 Delivery O2 Flow Rate FiO2 11/03/19 10:51 98 15 100 Mechanical Ventilator 24 99 17 24 11/03/19 08:06 98 127/60 11/03/19 08:05 127/60 11/03/19 08:00 Mechanical Ventilator 11/03/19 08:00 24 11/03/19 08:00 97.9 97 16 127/60 (82) 100 86 11/03/19 08:00 96 11/03/19 07:56 79 14 24 11/03/19 04:00 Mechanical Ventilator 11/03/19 04:00 99.1 100 19 149/79 (102) 100 90 11/03/19 04:00 109 11/03/19 04:00 24 11/03/19 03:19 104 20 24 11/03/19 00:00 99.1 94 19 130/49 (76) 100 90 11/03/19 00:00 24 11/03/19 00:00 Mechanical Ventilator 11/03/19 00:00 96 11/02/19 23:14 61 14 100 Mechanical Ventilator 24 63 15 24 11/02/19 21:43 105 140/66 11/02/19 20:00 Mechanical Ventilator 11/02/19 20:00 97.7 104 21 140/66 (90) 97 90 11/02/19 20:00 24 11/02/19 20:00 105 11/02/19 18:49 86 20 24 11/02/19 16:00 Mechanical Ventilator 11/02/19 16:00 24 11/02/19 16:00 96 11/02/19 15:47 98.1 90 14 152/79 (103) 100 90 11/02/19 14:52 90 16 24 11/02/19 12:00 90 11/02/19 12:00 99.1 90 14 164/86 (112) 99 102 11/02/19 12:00 24 11/02/19 12:00 Mechanical Ventilator Intake and Output 11/02/19 11/03/19 18:59 06:59 Intake Total 45 ml 690 ml Output Total 50 ml Balance 45 ml 640 ml Free Water 150 ml Tube Feeding 45 ml 540 ml Stool Total 50 ml Hemodialysis UF 0 ml # Voids 1 # Bowel Movements 103 3 Laboratory Tests 11/02/19 16:40: POC Whole Blood Glucose 154H 11/02/19 23:13: POC Whole Blood Glucose 147H 11/03/19 05:16: POC Whole Blood Glucose 143H Height (Feet): 5 Height (Inches): 10.00 Weight (Pounds): 123 Objective Clammy, diaphoretic CV RR Trach clean Lungs CTA Perma Cath RIJ. Abd SNT. BS + E No CCE Barely responsive Erica Pichardo MD Nov 03, 2019 11:42
--- NOTE | 2019-11-03 11:53 | NUR ---
NURSE NOTES: Patient noted with hemodialysis order for 11/04/[address] Pichardo with [facility] nephrology. Spoke with Reyes and informed of order. Reyes acknowledged and will inform hemodialysis nurse. Noted. Logged in hemodialysis log book. Will continue to monitor patient.
[2019-11-03 12:00] VITALS: BP 100/55
--- NOTE | 2019-11-03 15:31 | Surgery Progress Note ---
Surgery Progress Note Subjective Procedure Performed Right femoral temporary hemodialysis catheter removal Additional Comments ill appearing labs noted no acute events Objective Last 24 Hour Vital Signs Date Time Temp Pulse Resp B/P (MAP) Pulse Ox O2 Delivery O2 Flow Rate FiO2 11/03/19 12:00 100 11/03/19 12:00 Mechanical Ventilator 11/03/19 12:00 24 11/03/19 12:00 97.3 102 18 100/55 (70) 99 102 11/03/19 10:51 98 15 100 Mechanical Ventilator 24 99 17 24 11/03/19 08:06 98 127/60 11/03/19 08:05 127/60 11/03/19 08:00 Mechanical Ventilator 11/03/19 08:00 24 11/03/19 08:00 97.9 97 16 127/60 (82) 100 86 11/03/19 08:00 96 11/03/19 07:56 79 14 24 11/03/19 04:00 Mechanical Ventilator 11/03/19 04:00 99.1 100 19 149/79 (102) 100 90 11/03/19 04:00 109 11/03/19 04:00 24 11/03/19 03:19 104 20 24 11/03/19 00:00 99.1 94 19 130/49 (76) 100 90 11/03/19 00:00 24 11/03/19 00:00 Mechanical Ventilator 11/03/19 00:00 96 11/02/19 23:14 61 14 100 Mechanical Ventilator 24 63 15 24 11/02/19 21:43 105 140/66 11/02/19 20:00 Mechanical Ventilator 11/02/19 20:00 97.7 104 21 140/66 (90) 97 90 11/02/19 20:00 24 11/02/19 20:00 105 11/02/19 18:49 86 20 24 11/02/19 16:00 Mechanical Ventilator 11/02/19 16:00 24 11/02/19 16:00 96 11/02/19 15:47 98.1 90 14 152/79 (103) 100 90 I&O Intake and Output 11/02/19 11/03/19 19:00 07:00 Intake Total 90 ml 690 ml Output Total 50 ml Balance 90 ml 640 ml Free Water 150 ml Tube Feeding 90 ml 540 ml Stool Total 50 ml Hemodialysis UF 0 ml # Voids 1 # Bowel Movements 103 3 Dressing: other Wound: other Cardiovascular: RSR Respiratory: decreased breath sounds Abdomen: soft, non-tender, present bowel sounds Extremities: no cyanosis Laboratory Tests Test 11/02/19 16:40 11/02/19 23:13 11/03/19 05:16 11/03/19 11:42 POC Whole Blood Glucose 154 MG/DL (74-106) H 147 MG/DL (74-106) H 143 MG/DL (74-106) H 179 MG/DL (74-106) H Plan Problems: (1) Anemia (2) Hyponatremia (3) Leukocytosis Assessment & Plan: Tracheostomy, left chest pacemaker are again demonstrated. There is bilateral interstitial and airspace disease and bilateral pleural fluid again demonstrated. This appears more severe than on the prior study. Bilateral interstitial and airspace infiltrates versus edema. Bilateral pleural effusions Leukocytosis, anemia, tachycardia, abnormal labs. Wound evaluated and likely etiology of patient's sepsis. Leukocytosis etiology work-up antibiotics per infectious disease Appreciate nephrology input transfuse with dialysis We will follow with recommendations thank you allowing participation's care plan HD access temp HD discussed with medical teams line okay HD as per renal persistent leukocytosis flow cyto noted improving trending down right fem line removed wbc fluctuating h/h stable lft's elevated There is a right pleural effusion Gallbladder demonstrates tiny wall adherent nonmobile echogenic foci, some possible mural calcifications, and comet tail artifact in the anterior wall. Patient unable to report sonographic Kent's sign. Common bile duct measures 4 mm in diameter. No intrahepatic biliary ductal dilatation. Liver demonstrates normal echogenicity, no focal abnormality. There is some surface nodularity. Portal vein and hepatic veins are patent. Pancreas is incompletely visualized due to overlying bowel gas, visualized portions are unremarkable. Spleen is unremarkable. Left kidney measures 8.7 cm in length. Right kidney measures 8.9 cm length. Both kidneys demonstrate increased echogenicity. There is no hydronephrosis. No focal abnormality . Abdominal aorta is partially obscured by bowel gas, visualized portions are non-aneurysmal . A gastrostomy is noted Impression: Tiny wall adherent nonmobile gallbladder echogenic foci, may reflect wall adherent calculi, small polyps, and/or pleural calcifications. Anterior wall comet tail artifact suggests foci of adenomyomatosis. Normal caliber common bile duct Possible hepatic surface nodularity, could indicate cirrhotic change Echogenic kidneys, consistent with medical renal disease. No hydronephrosis Right pleural effusion Gastrostomy Note nonvisualization of portions of the pancreas and abdominal aorta HIDA NEGATIVE trend labs (4) Ventilator dependent (5) Right lower lobe pneumonia (6) Hypokalemia (7) Hyperkalemia (8) Anasarca (9) Decubitus skin ulcer Assessment & Plan: pt presented on admission with generalized edemae.Skin assessed under tracheostomy and no areas of concerns noted. GT Insertion is marginally erythematous with small amt slough at stoma. Unstageable Pressure Injury R elbow. Base of wound is 100% yellow slough,Borders are erythematous. Wound oozing small amt haemopurulent exudate.Darker skin tone without elevation in skin temp or erythema periwound. Pt's penis and scrotum are grossly edematous and enlarged and weeping serous exudate from numerous sites both from penis and scrotum. Two small open wounds noted at base of at base of shaft of penis ,and contreras aspect of scrotum. Both wounds oozing large amt sanguineous and serosanguineous exudate. Multiple open wounds with Biofilm at base of each wounds noted to contreras/lateral,inferior and posterior aspects of scrotum. These wounds noted to be oozing moderate amts of serosanguineous exudate. Hypertrophic scar with scattered areas of hyperpigmentation noted to Sacrum. DTPI noted to L Buttocks (L)7cm x (W)9cm. Base of wound is purple and indurated.Darker skin tone without erythema,induration or fluctuance R and L ischial tuberosities. Both heels are boggy with non-blanchable erythema. potential decline given chronic illness Tx.Plan: Cleanse wound R elbow with Saline. Apply TheraHoney, Apply Moisture Barrier Paste periwound. Cover with Optifoam drsg.Change Daily and prn. Wash GT site with soap and water.Pat dry. Apply Zinc Oxide Paste to GT site Daily. Leave Open to Air. Apply Zinc Oxide Paste to entire Scrotum, Place ABD pads to R and L lateral, and posterior aspects of scrotum TWICE daily. Apply Cavilon Skin Barrier to malleoli and both Heels. Cover each site with Optifoam drsgs. Change every 7 days and prn. Reposition at least every 2hours or as tolerated. Off-load heels with Pillows. APM/BECCA Mattress overlay. (10) Malnutrition Assessment & Plan: DAILY ESTIMATED NEEDS: Needs based on Renal, critical care, wound/ 61kg 22-30 kcals/kg 0975-4113 total kcals 1.25-2 g protein/kg 76-122 g total protein Fluid per MD, now on HD NUTRITION DIAGNOSIS: * Swallowing difficulty R/T respiratory failure, dysphagia as evidenced by trach/vent dep, PEG dep * Increased kcal/prot needs R/T wound healing as evidenced by admitted w/ multiple pressure injuries including full thickness wounds at junction of Shaft of penis, dorsal scrotum, R elbow, and DTPI @ L buttocks. CURRENT TF:Osmolite 1.2 @ 60ml/hr x 20 hrs + Garo BID ENTERAL NUTRITION RECOMMENDATIONS: Vital AF 1.2 @ 60ml/hr x 20 hrs to provide 1200ml, 1440kcal, 90g prot, 973ml free water * Rec 20 hr run time for GI rest. -> W/ improved GI status, rec Vital AF 1.2, an elemental and carb controlled TF -> monitor lytes and renal fxn closely, monitor need for renal TF -> TF @ goal will provide 1642mg K and 2025mg Phos -> HOB over 30 degrees/ water flush per MD -------- Trial of Osmolite 1.2 continue for now- Goal of 60ml/hr for 20 hrs (4 hrs bowel rest) to provide 1200ml, 1440 kcal, 67g pro, 984ml free H2O, -> Rec to add prosource 1 pack daily (11g pro) to better meet est pro needs. -> Monitor BG, K closely. Pt would require increased insulin coverage as TF at goal would provide 56g more carbs per day. ADDITIONAL RECOMMENDATIONS: * Per SNF: HT=63" EI=367 lbs (vs EMR wt of 166lbs) -> obtain re-calibrated bedscale wt, rec daily wt monitoring * Wound healing: con't Nephrovite + Garo BID/ Vit C dosing per Nephro * Monitor renal fxn and lytes closely w/ non-renal TF ->K low, phos wnl;updated mag level; rec increased insulin w/ BG labs * Daily wts w/ drop to 118-20 lbs, rec to recalibrate for accurate CBW * Consider DC Miralax if medically appropriate: +rectal tube (11) Uremia (12) CKD (chronic kidney disease) stage 5, GFR less than 15 ml/min (13) Colon distention Assessment & Plan: discussed with GI likely functional as having lots of loose bm rectal tube kub f/u s/p colonoscopy - findings reviewed with GI improved cont diet as tolerated repeat KUB Marked distention of the sigmoid colon. 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 No evidence of bowel wall thickening or pneumatosis 12 mm focus of contrast enhancement in the right pectineus muscle. While nonspecific in appearance, appearance raises concern for a possible pseudoaneurysm. Ill- defined thickening of the pectus medius muscle could indicate some intramuscular hemorrhage. The above findings were phoned to Dr. Urias at the time of interpretation Large bilateral pleural effusions Hazy pulmonary parenchymal opacities as well as dense consolidative opacities most likely represent pulmonary edema, but could represent pneumonia Evidence of anasarca elsewhere, with generalized edema of the subcutaneous fat Bladder wall thickening, raises concern for cystitis. Avalos catheter in place Colonic diverticulosis. No evidence of diverticulitis. Tracheostomy Pacemaker Gastrostomy Gastrostomy again demonstrated in satisfactory position. The stomach is otherwise unremarkable. The distal esophagus and duodenum are unremarkable. Ingested contrast reaches the colon. No small bowel distention or small bowel wall thickening. Interim placement of a rectal tube. There are a few colonic diverticula. No definite evidence of acute diverticulitis. The appendix is prominent in caliber, as previously No free or loculated intraperitoneal gas or fluid is evident. Again demonstrated is marked gaseous distention of the sigmoid colon which measures up to 12.6 cm in diameter, with the proximal aspect located laterally to the distal aspect, and caliber transition in the mesenteric root of both entry points. However, there is stool within the proximal portion which appears to be at least partially contrast opacified, and no definite persisting of the vascular pedicle demonstrated. The liver, gallbladder, bile ducts, pancreas, spleen, adrenals, kidneys are unremarkable. There are accessory splenules demonstrated. No retroperitoneal or mesenteric mass or adenopathy. No pelvic mass or adenopathy. The prostate is enlarged and protrudes into the inferior bladder. The bladder is thick-walled. Previously demonstrated Avalos catheter has been removed. Again demonstrated is a large right pleural effusion and a moderate to large left pleural effusion. Again demonstrated are compressive atelectatic changes of significant portions of both lower lobes. Pacemaker wires are seen within the heart. Previously demonstrated high attenuation focus within the right pectineus muscle is not evident. However, there is a low-attenuation area which measures 2 cm diameter centrally which is not evident previously. There is diffuse edema of the subcutaneous fat. This is less severe than was demonstrated previously. There are degenerative proliferative changes of the lumbar spine. Impression: Abnormal configuration of the sigmoid colon, with marked distention of a sigmoid, inversion of the relationships of the proximal and descending colon, and evidence of immediately apposed transition point raises concern for sigmoid volvulus. However, similarity to the prior exam, presence of what appears to be contrast opacified stool within the dilated segment, and lack of evidence of twisting of the vascular pedicle raises the possibility that this is baseline for this patient or possibly dysfunctional in nature. Correlate with clinical findings Enlarged prostate with protrusion into the bladder floor. Bladder neoplasm not completely excludable as a result Thick-walled bladder, may indicate cystitis or be due to chronic bladder lumen obstruction related to the above Abnormalities right pectineus muscle, with a 2 cm central low attenuation area. Note that previous exam have a high attenuation focus suspicious for a small pseudoaneurysm. 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 Colonic diverticulosis. No evidence of diverticulitis Gastrostomy in good position Rectal tube in good position Large right and moderate to large left pleural effusions. Resultant compressive pulmonary atelectatic changes or graft edema subcutaneous fat, less severe than was demonstrated on prior 08/17/2019 exam. Jonathan Urias Nov 03, 2019 15:31
[2019-11-03 16:00] VITALS: BP 102/57
--- NOTE | 2019-11-03 19:25 | NUR ---
NURSE HAND-OFF REPORT: Important Events on Shift: Patient Status: Stable Diet: Nepro 45 ml/hr Pending Orders: None Pending Results/Labs:None Pending MD notification:None Latest Vital Signs: Temperature 97.7 , Pulse 108 , B/P 102 /57 , Respiratory Rate 22 , O2 SAT 100 , Mechanical Ventilator, O2 Flow Rate 15.0 . Vital Sign Comment: Stable EKG Rhythm: V-Paced Rhythm change?: N MD Notified?: N - MD Response: Latest Delacruz Fall Score: 70 Fall Risk: High Risk Safety Measures: Call light Within Reach, Bed Alarm Zone 2, Side Rails Side Rails x3, Bed position Low and Locked. Fall Precautions: Yellow Socks Yellow Gown Patient Fall Education Report given to TAMICA Carranza.
--- NOTE | 2019-11-03 19:35 | NUR ---
NURSE NOTES: Important Events on Shift: none Patient Status: stable Diet: Glucerna 1.2 @ 35ml/hr Pending Orders: dialysis ([facility]) in AM Pending Results/Labs: AM Pending MD notification: Latest Vital Signs: Temperature 97.6 , Pulse 95 , B/P 142 /76 , Respiratory Rate 22 , O2 SAT 100 , Mechanical Ventilator, O2 Flow Rate 15.0 . Vital Sign Comment: stable EKG Rhythm: V-Paced Rhythm change?: N MD Notified?: N - MD Response: Latest Delacruz Fall Score: 70 Fall Risk: High Risk Safety Measures: Call light Within Reach, Bed Alarm Zone 2, Side Rails Side Rails x3, Bed position Low and Locked. Fall Precautions: Yellow Socks yes Yellow Gown yes Patient Fall Education yes
[2019-11-03 20:00] VITALS: BP 95/53
[2019-11-03] MEDS: Dyna-Hex 2% Top Sol 2oz TOPIC SCH (21:28)
[2019-11-03] MEDS: Epoetin Alfa-EPBX(ESRD on dialysis)4000 units/ml vial SUBQ SCH (21:48)
--- NOTE | 2019-11-03 23:47 | General Progress Note ---
Subjective Allergies: Coded Allergies: No Known Allergies (Unverified , 06/10/19) Subjective above noted NAD on TF non communicative d/w RN Objective Last 24 Hour Vital Signs Date Time Temp Pulse Resp B/P (MAP) Pulse Ox O2 Delivery O2 Flow Rate FiO2 11/03/19 23:16 93 15 100 Mechanical Ventilator 24 96 17 24 11/03/19 21:00 92 95/53 11/03/19 19:32 102 11/03/19 19:03 108 22 24 11/03/19 16:00 103 11/03/19 16:00 97.7 106 18 102/57 (72) 100 102 11/03/19 16:00 24 11/03/19 16:00 Mechanical Ventilator 11/03/19 15:20 104 18 24 11/03/19 12:00 100 11/03/19 12:00 Mechanical Ventilator 11/03/19 12:00 24 11/03/19 12:00 97.3 102 18 100/55 (70) 99 102 11/03/19 10:51 98 15 100 Mechanical Ventilator 24 99 17 24 11/03/19 08:06 98 127/60 11/03/19 08:05 127/60 11/03/19 08:00 Mechanical Ventilator 11/03/19 08:00 24 11/03/19 08:00 97.9 97 16 127/60 (82) 100 86 11/03/19 08:00 96 11/03/19 07:56 79 14 24 11/03/19 04:00 Mechanical Ventilator 11/03/19 04:00 99.1 100 19 149/79 (102) 100 90 11/03/19 04:00 109 11/03/19 04:00 24 11/03/19 03:19 104 20 24 11/03/19 00:00 99.1 94 19 130/49 (76) 100 90 11/03/19 00:00 24 11/03/19 00:00 Mechanical Ventilator 11/03/19 00:00 96 Intake and Output 11/02/19 11/03/19 19:00 07:00 Intake Total 90 ml 690 ml Output Total 50 ml Balance 90 ml 640 ml Free Water 150 ml Tube Feeding 90 ml 540 ml Stool Total 50 ml Hemodialysis UF 0 ml # Voids 1 # Bowel Movements 103 3 Laboratory Tests 11/03/19 05:16: POC Whole Blood Glucose 143H 11/03/19 11:42: POC Whole Blood Glucose 179H 11/03/19 16:35: POC Whole Blood Glucose 160H Height (Feet): 5 Height (Inches): 10.00 Weight (Pounds): 123 Objective Debilitated AA man NCAT (+) trach coarse BS RR abd less distended, anasarca, (+) GT, (+) rectal tube ext contracted Assessment/Plan Assessment/Plan: Assessment - abdominal distention, due to colonic dysmotility, - colonoscopy negative to hepatic flexure - diarrhea - presumed TF related - abnormal LFT - ? etiology --> HIDA negative and CT negative - Anemia - leukocytosis - stool OB (+) - EGD --> gastritis - Renal failure - Anasarca - resp failure, trach - b/l pleural effusions - dysphagia, GT - encephalopathy, contracted - poor px Recommendations - continue TF - check hepatitis markers - negative - rectal tube - roll side to side as feasible (hard due to severe contractions) - Elevate HOB - f/u labs - PPI - abx - supportive care Ronny Mustafa MD Nov 03, 2019 23:47
[2019-11-04] VITALS: BP 124/52
[2019-11-04] MEDS: NovoLOG Insulin Flexpen SUBQ SCH ×4 (00:42→17:37)
[2019-11-04 03:46] VITALS: BP 142/76
[2019-11-04 05:16] LABS: HEMATOCRIT 31.5 % (42.0-52.0); HEMOGLOBIN 9.7 G/DL (14.2-18.0); MEAN CORPUSCULAR VOLUME 75 FL (80-99); PLATELET COUNT 632 K/UL (150-450); RED BLOOD COUNT 4.19 M/UL (4.70-6.10); RED CELL DISTRIBUTION WIDTH 17.6 % (11.6-14.8); WHITE BLOOD COUNT 18.3 K/UL (4.8-10.8)
[2019-11-04 05:54] LABS: ALANINE AMINOTRANSFERASE 60 U/L (12-78); ALBUMIN 1.8 G/DL (3.4-5.0); ALBUMIN/GLOBULIN RATIO 0.3 (1.0-2.7); ALKALINE PHOSPHATASE 308 U/L (46-116); ASPARTATE AMINO TRANSFERASE 43 U/L (15-37); BLOOD UREA NITROGEN 69 mg/dL (7-18); CALCIUM 9.8 MG/DL (8.5-10.1); CHLORIDE 92 MMOL/L (98-107); CREATININE 3.4 MG/DL (0.55-1.30); POTASSIUM 3.9 MMOL/L (3.5-5.1); SODIUM 128 MMOL/L (136-145)
[2019-11-04] MEDS ORDERED: Heparin Sod 1000 units/ml 10ml IV PRN (06:00)
[2019-11-04] MEDS ORDERED: Heparin 1000 units/ml 1ml Vial INJ PRN (06:00)
[2019-11-04 06:04] LABS: BILIRUBIN,TOTAL 0.4 MG/DL (0.2-1.0); CARBON DIOXIDE 25 MMOL/L (21-32)
--- NOTE | 2019-11-04 07:50 | NUR ---
NURSE HAND-OFF REPORT: Important Events on Shift: none Patient Status: stable Diet: nephro @ 45ml/hr Pending Orders: none Pending Results/Labs: none Pending MD notification: none Latest Vital Signs: Temperature 97.6 , Pulse 95 , B/P 142 /76 , Respiratory Rate 22 , O2 SAT 100 , Mechanical Ventilator, O2 Flow Rate 15.0 . Vital Sign Comment: stable EKG Rhythm: V-Paced Rhythm change?: N MD Notified?: N - MD Response: Latest Delacruz Fall Score: 70 Fall Risk: High Risk Safety Measures: Call light Within Reach, Bed Alarm Zone 2, Side Rails Side Rails x3, Bed position Low and Locked. Fall Precautions: Yellow Socks yes Yellow Gown yes Patient Fall Education yes Report given to Lacy Sanders, database developer
--- NOTE | 2019-11-04 08:00 | NUR ---
Received patient in bed not in any acute cardio respiratory distress connected to ventilator with ventilator setting well tolerated. Suction secretion PRN. Oral care done. Complete bath provided. Treatment done on all pressure ulcer and photo taken and documented.
[2019-11-04 08:23] VITALS: BP 112/69
[2019-11-04] MEDS: Lactobacillus-GG tablet GT SCH ×2 (08:37→21:07)
[2019-11-04] MEDS: Metoprolol Tartrate 100mg tab GT SCH ×2 (08:37→21:00)
[2019-11-04] MEDS: Minoxidil 2.5mg tab GT SCH (08:37)
[2019-11-04] MEDS: Heparin 5000 units/ml inj SUBQ SCH ×2 (08:38→21:09)
[2019-11-04] MEDS: Zinc Oxide Oint 2oz TOPIC SCH ×2 (08:41→21:08)
[2019-11-04] MEDS: Colistin for inhalation INH SCH ×2 (10:00→22:46)
--- NOTE | 2019-11-04 10:00 | NUR ---
NURSE NOTES: Started on gt feeding of Nepro at 45 cc/hr as ordered. Hob elevated. Aspiration precaution observed. Taught daughter on oral care through via trach vent. Able to understand significant of oral care.
--- NOTE | 2019-11-04 10:38 | General Progress Note ---
Subjective ROS Limited/Unobtainable: Yes Allergies: Coded Allergies: No Known Allergies (Unverified , 06/10/19) Subjective remains ill on vent/ no change on HD vitals noted= transient hypotension Objective Last 24 Hour Vital Signs Date Time Temp Pulse Resp B/P (MAP) Pulse Ox O2 Delivery O2 Flow Rate FiO2 11/04/19 08:37 113 112/69 11/04/19 08:37 112/69 11/04/19 08:23 98.0 113 18 112/69 (83) 100 11/04/19 08:11 113 15 24 11/04/19 08:00 Mechanical Ventilator 11/04/19 08:00 24 11/04/19 08:00 113 11/04/19 04:00 24 11/04/19 03:46 97.6 95 22 142/76 (98) 100 11/04/19 03:39 108 11/04/19 03:14 104 15 24 11/04/19 03:03 Mechanical Ventilator 11/04/19 03:01 24 11/04/19 00:00 24 11/04/19 00:00 97.7 106 18 124/52 (76) 100 11/04/19 00:00 Mechanical Ventilator 11/04/19 00:00 94 11/03/19 23:16 93 15 100 Mechanical Ventilator 24 96 17 24 11/03/19 21:00 92 95/53 11/03/19 20:00 98.6 92 16 95/53 (67) 100 11/03/19 20:00 24 11/03/19 20:00 Mechanical Ventilator 11/03/19 19:32 102 11/03/19 19:03 108 22 24 11/03/19 16:00 103 11/03/19 16:00 97.7 106 18 102/57 (72) 100 102 11/03/19 16:00 24 11/03/19 16:00 Mechanical Ventilator 11/03/19 15:20 104 18 24 11/03/19 12:00 100 11/03/19 12:00 Mechanical Ventilator 11/03/19 12:00 24 11/03/19 12:00 97.3 102 18 100/55 (70) 99 102 11/03/19 10:51 98 15 100 Mechanical Ventilator 24 99 17 24 Intake and Output 11/03/19 11/04/19 19:00 07:00 Intake Total 595 ml 245 ml Output Total 100 ml Balance 595 ml 145 ml Free Water 100 ml 200 ml Tube Feeding 495 ml 45 ml Stool Total 100 ml # Bowel Movements 103 3 Laboratory Tests 11/03/19 11:42: POC Whole Blood Glucose 179H 11/03/19 16:35: POC Whole Blood Glucose 160H 11/04/19 00:10: POC Whole Blood Glucose 186H 11/04/19 02:55: White Blood Count 18.3H, Red Blood Count 4.19L, Hemoglobin 9.7L, Hematocrit 31.5 L, Mean Corpuscular Volume 75L, Mean Corpuscular Hemoglobin 23.0L, Mean Corpuscular Hemoglobin Concent 30.6L, Red Cell Distribution Width 17.6H, Platel et Count 632H, Mean Platelet Volume 5.9L, Neutrophils (%) (Auto) , Lymphocytes (%) (Auto) , Monocytes (%) (Auto) , Eosinophils (%) (Auto) , Basophils (%) (Auto) , Neutrophils % (Manual) [Pending], Lymphocytes % (Manual) [Pending], Platelet Estimate [Pending], Platelet Morphology [Pending], Sodium Level 128L, Potassium Level 3.9, Chloride Level 92L, Carbon Dioxide Level 25, Blood Urea Nitrogen 69H, Creatinine 3.4H, Estimat Glomerular Filtration Rate 17.6, Glucose Level 154H, Calcium Level 9.8, Total Bilirubin 0.4, Aspartate Amino Transf (AST/SGOT) 43H, Alanine Aminotransferase (ALT/SGPT) 60, Alkaline Phosphatase 308H, Total Protein 7.4, Albumin 1.8L, Globulin 5.6, Albumin/Globulin Ratio 0.3L 11/04/19 06:05: POC Whole Blood Glucose 164H Height (Feet): 5 Height (Inches): 10.00 Weight (Pounds): 123 Objective GENERAL: Ill-appearing male, chronically debilitated. HEENT: Tracheostomy in midline. Questionable fullness in the submandibular region. LUNGS: Coarse breath sounds. reduced breath sounds CARDIAC: S1, S2. Regular rate and rhythm. tachy ABDOMEN: Soft. G-tube. EXTREMITIES: With noted edema. NEUROLOGICAL: Poorly responsive, weak diffusely. Assessment/Plan Assessment/Plan: IMPRESSION: 1. anemia. 2. fevers improved 3. Leukocytosis. 4. hypotension 5. Acute on chronic renal failure. 6. Hyponatremia. 7. Severe protein-calorie malnutrition. 8. Significantly elevated C-reactive protein concerning for infectious etiology. 9. Tracheostomy, G-tube. 10. Ventilator dependence. 11. anasarca 12. Hematuria 13. V pacing 14. hyponatremia 15. transaminitis, HIDA negative PLAN monitor vitals; cards following colisitn and acyclovir chronic care; unable to place care noted- bolus prn for hypotension on vent/ no wean monitor labs and optimize ID follow up - wbc now worse dialysis ongoing- adjust lytes prognosis poor for recovery impression, plan, and exam edited and reviewed in detail care discussed with Kain Tovar MD Nov 04, 2019 10:38
--- NOTE | 2019-11-04 11:05 | NUR ---
CASE MANAGEMENT:REVIEW 11/04/19 SI: SEPSIS 98.0 113 18 112/69 100% ON VENT SUPPORT W/24% FIO2 WBC+18.3 H/H-9.7/31.5 NA-128 BUN+69 CR+3.4 IS: HEPARIN SQ Q12 COLISTIN INH Q12 EPOETIN SQ MWF LACTOBACILLUS GT Q12 PEPCID GT QD LOPRESSOR GT Q12 MINOXIDIL GT QD : SDU STATUS PLAN: WAITING FOR HEALTH PLAN TO PROVIDE [facility] FOR DISCHARGE
[2019-11-04 12:51] VITALS: BP 121/65
--- NOTE | 2019-11-04 13:18 | Nephrology Progress Note ---
Assessment/Plan Plan Septic Shock -Restarted IV Abx per ID. ESRD - HD TTS + IVF boluses PRN. Anemia of CKD -TUYET. Subjective Subjective Obtunded. Objective Objective Last 24 Hour Vital Signs Date Time Temp Pulse Resp B/P (MAP) Pulse Ox O2 Delivery O2 Flow Rate FiO2 11/04/19 12:53 106 11/04/19 12:51 98.2 103 18 121/65 (83) 100 11/04/19 12:16 24 11/04/19 12:06 Mechanical Ventilator 11/04/19 11:14 104 16 24 11/04/19 08:37 113 112/69 11/04/19 08:37 112/69 11/04/19 08:23 98.0 113 18 112/69 (83) 100 11/04/19 08:11 113 15 24 11/04/19 08:00 Mechanical Ventilator 11/04/19 08:00 24 11/04/19 08:00 113 11/04/19 04:00 24 11/04/19 03:46 97.6 95 22 142/76 (98) 100 11/04/19 03:39 108 11/04/19 03:14 104 15 24 11/04/19 03:03 Mechanical Ventilator 11/04/19 03:01 24 11/04/19 00:00 24 11/04/19 00:00 97.7 106 18 124/52 (76) 100 11/04/19 00:00 Mechanical Ventilator 11/04/19 00:00 94 11/03/19 23:16 93 15 100 Mechanical Ventilator 24 96 17 24 11/03/19 21:00 92 95/53 11/03/19 20:00 98.6 92 16 95/53 (67) 100 11/03/19 20:00 24 11/03/19 20:00 Mechanical Ventilator 11/03/19 19:32 102 11/03/19 19:03 108 22 24 11/03/19 16:00 103 11/03/19 16:00 97.7 106 18 102/57 (72) 100 102 11/03/19 16:00 24 11/03/19 16:00 Mechanical Ventilator 11/03/19 15:20 104 18 24 Intake and Output 11/03/19 11/04/19 19:00 07:00 Intake Total 595 ml 245 ml Output Total 100 ml Balance 595 ml 145 ml Free Water 100 ml 200 ml Tube Feeding 495 ml 45 ml Stool Total 100 ml # Bowel Movements 103 3 Laboratory Tests 11/03/19 16:35: POC Whole Blood Glucose 160H 11/04/19 00:10: POC Whole Blood Glucose 186H 11/04/19 02:55: White Blood Count 18.3H, Red Blood Count 4.19L, Hemoglobin 9.7L, Hematocrit 31.5L, Mean Corpuscular Volume 75L, Mean Corpuscular Hemoglobin 23.0L, Mean Corpuscular Hemoglobin Concent 30.6L, Red Cell Distribution Width 17.6H, Platelet Count 632H, Mean Platelet Volume 5.9L, Neutrophils (%) (Auto) , Lymphocytes (%) (Auto) , Monocytes (%) (Auto) , Eosinophils (%) (Auto) , Basophils (%) (Auto) , Differential Total Cells Counted 100, Neutrophils % (Manual) 65, Lymphocytes % (Manual) 25, Monocytes % (Manual) 6, Eosinophils % (Manual) 4H, Basophils % (Manual) 0, Band Neutrophils 0, Platelet Estimate IncreasedH, Platelet Morphology Normal, Hypochromasia 2+, Anisocytosis 1+, Sodium Level 128L, Potassium Level 3.9, Chloride Level 92L, Carbon Dioxide Level 25, Blood Urea Nitrogen 69H, Creatinine 3.4H, Estimat Glomerular Filtration Rate 17.6, Glucose Level 154H, Calcium Level 9.8, Total Bilirubin 0.4, Aspartate Amino Transf (AST/SGOT) 43H, Alanine Aminotransferase (ALT/SGPT) 60, Alkaline Phosphatase 308H, Total Protein 7.4, Albumin 1.8L, Globulin 5.6, Albumin/Globulin Ratio 0.3L 11/04/19 06:05: POC Whole Blood Glucose 164H 11/04/19 11:58: POC Whole Blood Glucose [Pending] Height (Feet): 5 Height (Inches): 10.00 Weight (Pounds): 123 Objective Clammy, diaphoretic CV RR Trach clean Lungs CTA Perma Cath RIJ. Abd SNT. BS + E No CCE Barely responsive Erica Pichardo MD Nov 04, 2019 13:18
--- NOTE | 2019-11-04 14:30 | NUR ---
NURSE NOTES: Patient was started on dialysis will continue to monitor.
--- NOTE | 2019-11-04 15:53 | General Progress Note ---
Subjective Allergies: Coded Allergies: No Known Allergies (Unverified , 06/10/19) Subjective above noted NAD on TF non communicative d/w RN Objective Last 24 Hour Vital Signs Date Time Temp Pulse Resp B/P (MAP) Pulse Ox O2 Delivery O2 Flow Rate FiO2 11/04/19 12:53 106 11/04/19 12:51 98.2 103 18 121/65 (83) 100 11/04/19 12:16 24 11/04/19 12:06 Mechanical Ventilator 11/04/19 11:14 104 16 24 11/04/19 08:37 113 112/69 11/04/19 08:37 112/69 11/04/19 08:23 98.0 113 18 112/69 (83) 100 11/04/19 08:11 113 15 24 11/04/19 08:00 Mechanical Ventilator 11/04/19 08:00 24 11/04/19 08:00 113 11/04/19 04:00 24 11/04/19 03:46 97.6 95 22 142/76 (98) 100 11/04/19 03:39 108 11/04/19 03:14 104 15 24 11/04/19 03:03 Mechanical Ventilator 11/04/19 03:01 24 11/04/19 00:00 24 11/04/19 00:00 97.7 106 18 124/52 (76) 100 11/04/19 00:00 Mechanical Ventilator 11/04/19 00:00 94 11/03/19 23:16 93 15 100 Mechanical Ventilator 24 96 17 24 11/03/19 21:00 92 95/53 11/03/19 20:00 98.6 92 16 95/53 (67) 100 11/03/19 20:00 24 11/03/19 20:00 Mechanical Ventilator 11/03/19 19:32 102 11/03/19 19:03 108 22 24 11/03/19 16:00 103 11/03/19 16:00 97.7 106 18 102/57 (72) 100 102 11/03/19 16:00 24 11/03/19 16:00 Mechanical Ventilator Intake and Output 11/03/19 11/04/19 19:00 07:00 Intake Total 595 ml 245 ml Output Total 100 ml Balance 595 ml 145 ml Free Water 100 ml 200 ml Tube Feeding 495 ml 45 ml Stool Total 100 ml # Bowel Movements 103 3 Laboratory Tests 11/03/19 16:35: POC Whole Blood Glucose 160H 11/04/19 00:10: POC Whole Blood Glucose 186H 11/04/19 02:55: White Blood Count 18.3H, Red Blood Count 4.19L, Hemoglobin 9.7L, Hematocrit 31.5L, Mean Corpuscular Volume 75L, Mean Corpuscular Hemoglobin 23.0L, Mean Corpuscular Hemoglobin Concent 30.6L, Red Cell Distribution Width 17.6H, Platelet Count 632H, Mean Platelet Volume 5.9L, Neutrophils (%) (Auto) , Lymphocytes (%) (Auto) , Monocytes (%) (Auto) , Eosinophils (%) (Auto) , Basophils (%) (Auto) , Differential Total Cells Counted 100, Neutrophils % (Manual) 65, Lymphocytes % (Manual) 25, Monocytes % (Manual) 6, Eosinophils % (Manual) 4H, Basophils % (Manual) 0, Band Neutrophils 0, Platelet Estimate IncreasedH, Platelet Morphology Normal, Hypochromasia 2+, Anisocytosis 1+, Sodium Level 128L, Potassium Level 3.9, Chloride Level 92L, Carbon Dioxide Level 25, Blood Urea Nitrogen 69H, Creatinine 3.4H, Estimat Glomerular Filtration Rate 17.6, Glucose Level 154H, Calcium Level 9.8, Total Bilirubin 0.4, Aspartate Amino Transf (AST/SGOT) 43H, Alanine Aminotransferase (ALT/SGPT) 60, Alkaline Phosphatase 308H, Total Protein 7.4, Albumin 1.8L, Globulin 5.6, Albumin/Globulin Ratio 0.3L 11/04/19 06:05: POC Whole Blood Glucose 164H 11/04/19 11:58: POC Whole Blood Glucose [Pending] Height (Feet): 5 Height (Inches): 10.00 Weight (Pounds): 123 Objective Debilitated AA man NCAT (+) trach coarse BS RR abd less distended, anasarca, (+) GT, (+) rectal tube ext contracted Assessment/Plan Assessment/Plan: Assessment - abdominal distention, due to colonic dysmotility, - colonoscopy negative to hepatic flexure - diarrhea - presumed TF related - abnormal LFT - ? etiology --> HIDA negative and CT negative - Anemia - leukocytosis - stool OB (+) - EGD --> gastritis - Renal failure - Anasarca - resp failure, trach - b/l pleural effusions - dysphagia, GT - encephalopathy, contracted - poor px Recommendations - continue TF - check hepatitis markers - negative - rectal tube - roll side to side as feasible (hard due to severe contractions) - Elevate HOB - f/u labs - PPI - abx - supportive care Ronny Mustafa MD Nov 04, 2019 15:53
[2019-11-04 16:00] VITALS: BP 107/65
--- NOTE | 2019-11-04 19:20 | NUR ---
NURSE NOTES: Pt received from [facility] alert and oriented x0, nonverbal but opens eyes to shaking. Pt currently receiving HD through permacath on R upper chest with HD RNSylvester at bedside. Trach-dependent - Portex 8, AC 12, TV 550, 24% FiO2, Peep 5, saturating at 100%. Gtube feed tolerating - 10 ml gastric residual noted - with Nepro at 45 cc for 20 hrs. R hand 20g asymptomatic and patent, saline lock. Rectal tube noted with liquid brown stool at 200 ml. Pt anuric. Bed in lowest position, call light and belongings within reach.
--- NOTE | 2019-11-04 19:30 | NUR ---
NURSE HAND-OFF REPORT: Important Events on Shift:on dialysiss Patient Status: full code Diet: Nepro 45 cc/hr per gt X 20 hour. Pending Orders: none Pending Results/Labs:none Pending MD notification:none Latest Vital Signs: Temperature 99.7 , Pulse 110 , B/P 122 /57 , Respiratory Rate 25 , O2 SAT 100 , Mechanical Ventilator, O2 Flow Rate 15.0 . Vital Sign Comment: stable EKG Rhythm: V-Paced Rhythm change?: N MD Notified?: N - MD Response: Latest Delacruz Fall Score: 70 Fall Risk: High Risk Safety Measures: Call light Within Reach, Bed Alarm Zone 2, Side Rails Side Rails x3, Bed position Low and Locked. Fall Precautions: Yellow Socks Yellow Gown Patient Fall Education Report given to Rakel .
--- NOTE | 2019-11-04 19:55 | Surgery Progress Note ---
Surgery Progress Note Subjective Procedure Performed Right femoral temporary hemodialysis catheter removal Symptoms: tolerating diet, passing flatus, BM, other Objective Last 24 Hour Vital Signs Date Time Temp Pulse Resp B/P (MAP) Pulse Ox O2 Delivery O2 Flow Rate FiO2 11/04/19 18:54 108 16 24 11/04/19 16:43 Mechanical Ventilator 11/04/19 16:42 24 11/04/19 16:39 111 11/04/19 16:00 99.5 18 107/65 (79) 100 11/04/19 15:09 111 20 24 11/04/19 12:53 106 11/04/19 12:51 98.2 103 18 121/65 (83) 100 11/04/19 12:16 24 11/04/19 12:06 Mechanical Ventilator 11/04/19 11:14 104 16 24 11/04/19 08:37 113 112/69 11/04/19 08:37 112/69 11/04/19 08:23 98.0 113 18 112/69 (83) 100 11/04/19 08:11 113 15 24 11/04/19 08:00 Mechanical Ventilator 11/04/19 08:00 24 11/04/19 08:00 113 11/04/19 04:00 24 11/04/19 03:46 97.6 95 22 142/76 (98) 100 11/04/19 03:39 108 11/04/19 03:14 104 15 24 11/04/19 03:03 Mechanical Ventilator 11/04/19 03:01 24 11/04/19 00:00 24 11/04/19 00:00 97.7 106 18 124/52 (76) 100 11/04/19 00:00 Mechanical Ventilator 11/04/19 00:00 94 11/03/19 23:16 93 15 100 Mechanical Ventilator 24 96 17 24 11/03/19 21:00 92 95/53 11/03/19 20:00 98.6 92 16 95/53 (67) 100 11/03/19 20:00 24 11/03/19 20:00 Mechanical Ventilator I&O Intake and Output 11/03/19 11/04/19 19:00 07:00 Intake Total 595 ml 245 ml Output Total 100 ml Balance 595 ml 145 ml Free Water 100 ml 200 ml Tube Feeding 495 ml 45 ml Stool Total 100 ml # Bowel Movements 103 3 Dressing: other Wound: other Cardiovascular: RSR Respiratory: decreased breath sounds Abdomen: non-tender, present bowel sounds Extremities: no edema, no tenderness, no cyanosis Laboratory Tests Test 11/04/19 00:10 11/04/19 02:55 11/04/19 06:05 11/04/19 11:58 POC Whole Blood Glucose 186 MG/DL (74-106) H 164 MG/DL (74-106) H Pending White Blood Count 18.3 K/UL (4.8-10.8) H Red Blood Count 4.19 M/UL (4.70-6.10) L Hemoglobin 9.7 G/DL (14.2-18.0) L Hematocrit 31.5 % (42.0-52.0) L Mean Corpuscular Volume 75 FL (80-99) L Mean Corpuscular Hemoglobin 23.0 PG (27.0-31.0) L Mean Corpuscular Hemoglobin Concent 30.6 G/DL (32.0-36.0) L Red Cell Distribution Width 17.6 % (11.6-14.8) H Platelet Count 632 K/UL (150-450) H Mean Platelet Volume 5.9 FL (6.5-10.1) L Neutrophils (%) (Auto) % (45.0-75.0) Lymphocytes (%) (Auto) % (20.0-45.0) Monocytes (%) (Auto) % (1.0-10.0) Eosinophils (%) (Auto) % (0.0-3.0) Basophils (%) (Auto) % (0.0-2.0) Differential Total Cells Counted 100 Neutrophils % (Manual) 65 % (45-75) Lymphocytes % (Manual) 25 % (20-45) Monocytes % (Manual) 6 % (1-10) Eosinophils % (Manual) 4 % (0-3) H Basophils % (Manual) 0 % (0-2) Band Neutrophils 0 % (0-8) Platelet Estimate Increased H Platelet Morphology Normal Hypochromasia 2+ Anisocytosis 1+ Sodium Level 128 MMOL/L (136-145) L Potassium Level 3.9 MMOL/L (3.5-5.1) Chloride Level 92 MMOL/L (98-107) L Carbon Dioxide Level 25 MMOL/L (21-32) Blood Urea Nitrogen 69 mg/dL (7-18) H Creatinine 3.4 MG/DL (0.55-1.30) H Estimat Glomerular Filtration Rate 17.6 mL/min (>60) Glucose Level 154 MG/DL (74-106) H Calcium Level 9.8 MG/DL (8.5-10.1) Total Bilirubin 0.4 MG/DL (0.2-1.0) Aspartate Amino Transf (AST/SGOT) 43 U/L (15-37) H Alanine Aminotransferase (ALT/SGPT) 60 U/L (12-78) Alkaline Phosphatase 308 U/L (46-116) H Total Protein 7.4 G/DL (6.4-8.2) Albumin 1.8 G/DL (3.4-5.0) L Globulin 5.6 g/dL Albumin/Globulin Ratio 0.3 (1.0-2.7) L Plan Problems: (1) Anemia (2) Hyponatremia (3) Leukocytosis Assessment & Plan: Tracheostomy, left chest pacemaker are again demonstrated. There is bilateral interstitial and airspace disease and bilateral pleural fluid again demonstrated. This appears more severe than on the prior study. Bilateral interstitial and airspace infiltrates versus edema. Bilateral pleural effusions Leukocytosis, anemia, tachycardia, abnormal labs. Wound evaluated and likely etiology of patient's sepsis. Leukocytosis etiology work-up antibiotics per infectious disease Appreciate nephrology input transfuse with dialysis We will follow with recommendations thank you allowing participation's care plan HD access temp HD discussed with medical teams line okay HD as per renal persistent leukocytosis flow cyto noted improving trending down right fem line removed wbc fluctuating h/h stable lft's elevated There is a right pleural effusion Gallbladder demonstrates tiny wall adherent nonmobile echogenic foci, some possible mural calcifications, and comet tail artifact in the anterior wall. Patient unable to report sonographic Kent's sign. Common bile duct measures 4 mm in diameter. No intrahepatic biliary ductal dilatation. Liver demonstrates normal echogenicity, no focal abnormality. There is some surface nodularity. Portal vein and hepatic veins are patent. Pancreas is incompletely visualized due to overlying bowel gas, visualized portions are unremarkable. Spleen is unremarkable. Left kidney measures 8.7 cm in length. Right kidney measures 8.9 cm length. Both kidneys demonstrate increased echogenicity. There is no hydronephrosis. No focal abnormality . Abdominal aorta is partially obscured by bowel gas, visualized portions are non-aneurysmal . A gastrostomy is noted Impression: Tiny wall adherent nonmobile gallbladder echogenic foci, may reflect wall adherent calculi, small polyps, and/or pleural calcifications. Anterior wall comet tail artifact suggests foci of adenomyomatosis. Normal caliber common bile duct Possible hepatic surface nodularity, could indicate cirrhotic change Echogenic kidneys, consistent with medical renal disease. No hydronephrosis Right pleural effusion Gastrostomy Note nonvisualization of portions of the pancreas and abdominal aorta HIDA NEGATIVE trend labs (4) Ventilator dependent (5) Right lower lobe pneumonia (6) Hypokalemia (7) Hyperkalemia (8) Anasarca (9) Decubitus skin ulcer Assessment & Plan: pt presented on admission with generalized edemae.Skin assessed under tracheostomy and no areas of concerns noted. GT Insertion is marginally erythematous with small amt slough at stoma. Unstageable Pressure Injury R elbow. Base of wound is 100% yellow slough,Borders are erythematous. Wound oozing small amt haemopurulent exudate.Darker skin tone without elevation in skin temp or erythema periwound. Pt's penis and scrotum are grossly edematous and enlarged and weeping serous exudate from numerous sites both from penis and scrotum. Two small open wounds noted at base of at base of shaft of penis ,and contreras aspect of scrotum. Both wounds oozing large amt sanguineous and serosanguineous exudate. Multiple open wounds with Biofilm at base of each wounds noted to contreras/lateral,inferior and posterior aspects of scrotum. These wounds noted to be oozing moderate amts of serosanguineous exudate. Hypertrophic scar with scattered areas of hyperpigmentation noted to Sacrum. DTPI noted to L Buttocks (L)7cm x (W)9cm. Base of wound is purple and indurated.Darker skin tone without erythema,induration or fluctuance R and L ischial tuberosities. Both heels are boggy with non-blanchable erythema. potential decline given chronic illness Tx.Plan: Cleanse wound R elbow with Saline. Apply TheraHoney, Apply Moisture Barrier Paste periwound. Cover with Optifoam drsg.Change Daily and prn. Wash GT site with soap and water.Pat dry. Apply Zinc Oxide Paste to GT site Daily. Leave Open to Air. Apply Zinc Oxide Paste to entire Scrotum, Place ABD pads to R and L lateral, and posterior aspects of scrotum TWICE daily. Apply Cavilon Skin Barrier to malleoli and both Heels. Cover each site with Optifoam drsgs. Change every 7 days and prn. Reposition at least every 2hours or as tolerated. Off-load heels with Pillows. APM/BECCA Mattress overlay. (10) Malnutrition Assessment & Plan: DAILY ESTIMATED NEEDS: Needs based on Renal, critical care, wound/ 61kg 22-30 kcals/kg 4978-1209 total kcals 1.25-2 g protein/kg 76-122 g total protein Fluid per MD, now on HD NUTRITION DIAGNOSIS: * Swallowing difficulty R/T respiratory failure, dysphagia as evidenced by trach/vent dep, PEG dep * Increased kcal/prot needs R/T wound healing as evidenced by admitted w/ multiple pressure injuries including full thickness wounds at junction of Shaft of penis, dorsal scrotum, R elbow, and DTPI @ L buttocks. CURRENT TF:Osmolite 1.2 @ 60ml/hr x 20 hrs + Garo BID ENTERAL NUTRITION RECOMMENDATIONS: Vital AF 1.2 @ 60ml/hr x 20 hrs to provide 1200ml, 1440kcal, 90g prot, 973ml free water * Rec 20 hr run time for GI rest. -> W/ improved GI status, rec Vital AF 1.2, an elemental and carb controlled TF -> monitor lytes and renal fxn closely, monitor need for renal TF -> TF @ goal will provide 1642mg K and 2025mg Phos -> HOB over 30 degrees/ water flush per MD -------- Trial of Osmolite 1.2 continue for now- Goal of 60ml/hr for 20 hrs (4 hrs bowel rest) to provide 1200ml, 1440 kcal, 67g pro, 984ml free H2O, -> Rec to add prosource 1 pack daily (11g pro) to better meet est pro needs. -> Monitor BG, K closely. Pt would require increased insulin coverage as TF at goal would provide 56g more carbs per day. ADDITIONAL RECOMMENDATIONS: * Per SNF: HT=63" OX=273 lbs (vs EMR wt of 166lbs) -> obtain re-calibrated bedscale wt, rec daily wt monitoring * Wound healing: con't Nephrovite + Garo BID/ Vit C dosing per Nephro * Monitor renal fxn and lytes closely w/ non-renal TF ->K low, phos wnl;updated mag level; rec increased insulin w/ BG labs * Daily wts w/ drop to 118-20 lbs, rec to recalibrate for accurate CBW * Consider DC Miralax if medically appropriate: +rectal tube (11) Uremia (12) CKD (chronic kidney disease) stage 5, GFR less than 15 ml/min (13) Colon distention Assessment & Plan: discussed with GI likely functional as having lots of loose bm rectal tube kub f/u s/p colonoscopy - findings reviewed with GI improved cont diet as tolerated repeat KUB Marked distention of the sigmoid colon. 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 No evidence of bowel wall thickening or pneumatosis 12 mm focus of contrast enhancement in the right pectineus muscle. While nonspecific in appearance, appearance raises concern for a possible pseudoaneurysm. Ill-defined thickening of the pectus medius muscle could indicate some intramuscular hemorrhage. The above findings were phoned to Dr. Urias at the time of interpretation Large bilateral pleural effusions Hazy pulmonary parenchymal opacities as well as dense consolidative opacities most likely represent pulmonary edema, but could represent pneumonia Evidence of anasarca elsewhere, with generalized edema of the subcutaneous fat Bladder wall thickening, raises concern for cystitis. Avalos catheter in place Colonic diverticulosis. No evidence of diverticulitis. Tracheostomy Pacemaker Gastrostomy Gastrostomy again demonstrated in satisfactory position. The stomach is otherwise unremarkable. The distal esophagus and duodenum are unremarkable. Ingested contrast reaches the colon. No small bowel distention or small bowel wall thickening. Interim placement of a rectal tube. There are a few colonic diverticula. No definite evidence of acute diverticulitis. The appendix is prominent in caliber, as previously No free or loculated intraperitoneal gas or fluid is evident. Again demonstrated is marked gaseous distention of the sigmoid colon which measures up to 12.6 cm in diameter, with the proximal aspect located laterally to the distal aspect, and caliber transition in the mesenteric root of both entry points. However, there is stool within the proximal portion which appears to be at least partially contrast opacified, and no definite persisting of the vascular pedicle demonstrated. The liver, gallbladder, bile ducts, pancreas, spleen, adrenals, kidneys are unremarkable. There are accessory splenules demonstrated. No retroperitoneal or mesenteric mass or adenopathy. No pelvic mass or adenopathy. The prostate is enlarged and protrudes into the inferior bladder. The bladder is thick-walled. Previously demonstrated Avalos catheter has been removed. Again demonstrated is a large right pleural effusion and a moderate to large left pleural effusion. Again demonstrated are compressive atelectatic changes of significant portions of both lower lobes. Pacemaker wires are seen within the heart. Previously demonstrated high attenuation focus within the right pectineus muscle is not evident. However, there is a low-attenuation area which measures 2 cm diameter centrally which is not evident previously. There is diffuse edema of the subcutaneous fat. This is less severe than was demonstrated previously. There are degenerative proliferative changes of the lumbar spine. Impression: Abnormal configuration of the sigmoid colon, with marked distention of a sigmoid, inversion of the relationships of the proximal and descending colon, and evidence of immediately apposed transition point raises concern for sigmoid volvulus. However, similarity to the prior exam, presence of what appears to be contrast opacified stool within the dilated segment, and lack of evidence of twisting of the vascular pedicle raises the possibility that this is baseline for this patient or possibly dysfunctional in nature. Correlate with clinical findings Enlarged prostate with protrusion into the bladder floor. Bladder neoplasm not completely excludable as a result Thick-walled bladder, may indicate cystitis or be due to chronic bladder lumen obstruction related to the above Abnormalities right pectineus muscle, with a 2 cm central low attenuation area. Note that previous exam have a high attenuation focus suspicious for a small pseudoaneurysm. 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 Colonic diverticulosis. No evidence of diverticulitis Gastrostomy in good position Rectal tube in good position Large right and moderate to large left pleural effusions. Resultant compressive pulmonary atelectatic changes or graft edema subcutaneous fat, less severe than was demonstrated on prior 08/17/2019 exam. Jonathan Urias Nov 04, 2019 19:55
[2019-11-04 20:00] VITALS: BP 111/52
--- NOTE | 2019-11-04 20:15 | NUR ---
NURSE NOTES: Per Sylvester Orellana, HD RN, pt finished dialysis. VS stable. No HD output, only ultrafiltration was done.
[2019-11-04] MEDS: Dyna-Hex 2% Top Sol 2oz TOPIC SCH (21:09)
[2019-11-05] VITALS: BP 142/74
[2019-11-05] MEDS: NovoLOG Insulin Flexpen SUBQ SCH ×5 (00:16→23:30)
--- NOTE | 2019-11-05 00:35 | NUR ---
NURSE NOTES: Bed bath done with oral care and suctioning q4h and as needed. Rectal tube draining to dark brown stool. Bed in lowest position, bed alarm on. Call light and belongings within reach.
[2019-11-05 04:00] VITALS: BP 121/54
--- NOTE | 2019-11-05 07:10 | NUR ---
NURSE HAND-OFF REPORT: Important Events on Shift: Patient obtunded, alert and oriented x0. Oral care provided q4h and as needed. Patient Status: Stable Diet: Nepro at 45 ml/hr GT Pending Orders: n/a Pending Results/Labs: n/a Pending MD notification: n/a Latest Vital Signs: Temperature 97.9 , Pulse 113 , B/P 121 /54 , Respiratory Rate 20 , O2 SAT 100 , Mechanical Ventilator, O2 Flow Rate 15.0 . Vital Sign Comment: VS WNL EKG Rhythm: V-Paced Rhythm change?: N MD Notified?: N MD Response: Latest Delacruz Fall Score: 70 Fall Risk: High Risk Safety Measures: Call light Within Reach, Bed Alarm Zone 2, Side Rails Side Rails x3, Bed position Low and Locked. Fall Precautions: Yes Yellow Socks Yellow Gown Patient Fall Education Report given to TAMICA العلي.
--- NOTE | 2019-11-05 07:16 | NUR ---
NURSE NOTES: Per Dr. Campos, order BMP and CBC today, order noted, entered, carried out.
--- NOTE | 2019-11-05 07:51 | NUR ---
NURSE NOTES: Received report from TAMICA Obrien. Patient in bed resting, no active s/s cardiac, respiratory distress noticed at this time. Patient obtunded, V-paced HR 116. Trach to vent Portex 8 AC 12 TV 550 Fio2 24% PEEP 5. GT feeding on hold per order, Nephro @ 45ml/h. Rectal tube draining well to gravity. Endorsed HD done yesterday 11/03, 0ml out, right SC permacath , patent, intact. IV on right hand 20G, asymptomatic, patent, intact. Bed in lowest position, side rails upx3, call light within reach, bed alarm on, Will continue to monitor.
[2019-11-05 07:53] LABS: BASOPHILS % (AUTO) 0.9 % (0.0-2.0); EOSINOPHILS % (AUTO) 3.6 % (0.0-3.0); HEMATOCRIT 29.6 % (42.0-52.0); HEMOGLOBIN 9.1 G/DL (14.2-18.0); LYMPHOCYTES % (AUTO) 11.5 % (20.0-45.0); MEAN CORPUSCULAR VOLUME 75 FL (80-99); MONOCYTES % (AUTO) 8.6 % (1.0-10.0); NEUTROPHILS % (AUTO) 75.4 % (45.0-75.0); PLATELET COUNT 586 K/UL (150-450); RED BLOOD COUNT 3.94 M/UL (4.70-6.10); RED CELL DISTRIBUTION WIDTH 18.3 % (11.6-14.8)
[2019-11-05 08:00] VITALS: BP 122/57
[2019-11-05 08:02] LABS: CALCIUM 9.7 MG/DL (8.5-10.1); CREATININE 2.6 MG/DL (0.55-1.30); POTASSIUM 3.8 MMOL/L (3.5-5.1)
--- NOTE | 2019-11-05 08:04 | Surgery Progress Note ---
Surgery Progress Note Subjective Procedure Performed Right femoral temporary hemodialysis catheter removal Additional Comments wbc improving no n/v/f/c Objective Last 24 Hour Vital Signs Date Time Temp Pulse Resp B/P (MAP) Pulse Ox O2 Delivery O2 Flow Rate FiO2 11/05/19 04:00 113 11/05/19 04:00 Mechanical Ventilator 11/05/19 04:00 97.9 20 121/54 (76) 100 11/05/19 04:00 24 11/05/19 02:43 107 14 24 11/05/19 00:00 Mechanical Ventilator 11/05/19 00:00 97.9 20 142/74 (96) 100 11/04/19 23:35 114 11/04/19 22:47 111 13 100 Mechanical Ventilator 24 112 17 24 11/04/19 21:00 82 111/52 11/04/19 20:00 109 11/04/19 20:00 99.8 18 111/52 (71) 100 11/04/19 20:00 Mechanical Ventilator 11/04/19 20:00 24 11/04/19 19:58 84 11/04/19 18:54 108 16 24 11/04/19 16:43 Mechanical Ventilator 11/04/19 16:42 24 11/04/19 16:39 111 11/04/19 16:00 99.5 18 107/65 (79) 100 11/04/19 15:09 111 20 24 11/04/19 12:53 106 11/04/19 12:51 98.2 103 18 121/65 (83) 100 11/04/19 12:16 24 11/04/19 12:06 Mechanical Ventilator 11/04/19 11:14 104 16 24 11/04/19 08:37 113 112/69 11/04/19 08:37 112/69 11/04/19 08:23 98.0 113 18 112/69 (83) 100 11/04/19 08:11 113 15 24 I&O Intake and Output 11/04/19 11/05/19 19:00 07:00 Intake Total 600 ml 605 ml Output Total 200 ml Balance 600 ml 405 ml Free Water 150 ml 110 ml Tube Feeding 450 ml 495 ml Stool Total 200 ml # Bowel Movements 3 3 Dressing: other Wound: other Cardiovascular: RSR Respiratory: decreased breath sounds Abdomen: soft, non-tender, present bowel sounds Extremities: no tenderness, no cyanosis Laboratory Tests Test 11/04/19 11:58 11/04/19 23:59 11/05/19 06:02 11/05/19 07:29 POC Whole Blood Glucose Pending 216 MG/DL (74-106) H 206 MG/DL (74-106) H White Blood Count 15.0 K/UL (4.8-10.8) H Red Blood Count 3.94 M/UL (4.70-6.10) L Hemoglobin 9.1 G/DL (14.2-18.0) L Hematocrit 29.6 % (42.0-52.0) L Mean Corpuscular Volume 75 FL (80-99) L Mean Corpuscular Hemoglobin 23.2 PG (27.0-31.0) L Mean Corpuscular Hemoglobin Concent 30.9 G/DL (32.0-36.0) L Red Cell Distribution Width 18.3 % (11.6-14.8) H Platelet Count 586 K/UL (150-450) H Mean Platelet Volume 5.6 FL (6.5-10.1) L Neutrophils (%) (Auto) 75.4 % (45.0-75.0) H Lymphocytes (%) (Auto) 11.5 % (20.0-45.0) L Monocytes (%) (Auto) 8.6 % (1.0-10.0) Eosinophils (%) (Auto) 3.6 % (0.0-3.0) H Basophils (%) (Auto) 0.9 % (0.0-2.0) Sodium Level Pending Potassium Level Pending Chloride Level Pending Carbon Dioxide Level Pending Blood Urea Nitrogen Pending Creatinine Pending Estimat Glomerular Filtration Rate Pending Glucose Level Pending Calcium Level Pending Plan Problems: (1) Anemia (2) Hyponatremia (3) Leukocytosis Assessment & Plan: Tracheostomy, left chest pacemaker are again demonstrated. There is bilateral interstitial and airspace disease and bilateral pleural fluid again demonstrated. This appears more severe than on the prior study. Bilateral interstitial and airspace infiltrates versus edema. Bilateral pleural effusions Leukocytosis, anemia, tachycardia, abnormal labs. Wound evaluated and likely etiology of patient's sepsis. Leukocytosis etiology work-up antibiotics per infectious disease Appreciate nephrology input transfuse with dialysis We will follow with recommendations thank you allowing participation's care plan HD access temp HD discussed with medical teams line okay HD as per renal persistent leukocytosis flow cyto noted improving trending down right fem line removed wbc fluctuating h/h stable lft's elevated There is a right pleural effusion Gallbladder demonstrates tiny wall adherent nonmobile echogenic foci, some possible mural calcifications, and comet tail artifact in the anterior wall. Patient unable to report sonographic Kent's sign. Common bile duct measures 4 mm in diameter. No intrahepatic biliary ductal dilatation. Liver demonstrates normal echogenicity, no focal abnormality. There is some surface nodularity. Portal vein and hepatic veins are patent. Pancreas is incompletely visualized due to overlying bowel gas, visualized portions are unremarkable. Spleen is unremarkable. Left kidney measures 8.7 cm in length. Right kidney measures 8.9 cm length. Both kidneys demonstrate increased echogenicity. There is no hydronephrosis. No focal abnormality . Abdominal aorta is partially obscured by bowel gas, visualized portions are non-aneurysmal . A gastrostomy is noted Impression: Tiny wall adherent nonmobile gallbladder echogenic foci, may reflect wall adherent calculi, small polyps, and/or pleural calcifications. Anterior wall comet tail artifact suggests foci of adenomyomatosis. Normal caliber common bile duct Possible hepatic surface nodularity, could indicate cirrhotic change Echogenic kidneys, consistent with medical renal disease. No hydronephrosis Right pleural effusion Gastrostomy Note nonvisualization of portions of the pancreas and abdominal aorta HIDA NEGATIVE trend labs (4) Ventilator dependent (5) Right lower lobe pneumonia (6) Hypokalemia (7) Hyperkalemia (8) Anasarca (9) Decubitus skin ulcer Assessment & Plan: pt presented on admission with generalized edemae.Skin assessed under tracheostomy and no areas of concerns noted. GT Insertion is marginally erythematous with small amt slough at stoma. Unstageable Pressure Injury R elbow. Base of wound is 100% yellow slough,Borders are erythematous. Wound oozing small amt haemopurulent exudate.Darker skin tone without elevation in skin temp or erythema periwound. Pt's penis and scrotum are grossly edematous and enlarged and weeping serous exudate from numerous sites both from penis and scrotum. Two small open wounds noted at base of at base of shaft of penis ,and contreras aspect of scrotum. Both wounds oozing large amt sanguineous and serosanguineous exudate. Multiple open wounds with Biofilm at base of each wounds noted to contreras/lateral,inferior and posterior aspects of scrotum. These wounds noted to be oozing moderate amts of serosanguineous exudate. Hypertrophic scar with scattered areas of hyperpigmentation noted to Sacrum. DTPI noted to L Buttocks (L)7cm x (W)9cm. Base of wound is purple and indurated.Darker skin tone without erythema,induration or fluctuance R and L ischial tuberosities. Both heels are boggy with non-blanchable erythema. potential decline given chronic illness Tx.Plan: Cleanse wound R elbow with Saline. Apply TheraHoney, Apply Moisture Barrier Paste periwound. Cover with Optifoam drsg.Change Daily and prn. Wash GT site with soap and water.Pat dry. Apply Zinc Oxide Paste to GT site Daily. Leave Open to Air. Apply Zinc Oxide Paste to entire Scrotum, Place ABD pads to R and L lateral, and posterior aspects of scrotum TWICE daily. Apply Cavilon Skin Barrier to malleoli and both Heels. Cover each site with Optifoam drsgs. Change every 7 days and prn. Reposition at least every 2hours or as tolerated. Off-load heels with Pillows. APM/BECCA Mattress overlay. (10) Malnutrition Assessment & Plan: DAILY ESTIMATED NEEDS: Needs based on Renal, critical care, wound/ 61kg 22-30 kcals/kg [id number] total kcals 1.25-2 g protein/kg 76-122 g total protein Fluid per MD, now on HD NUTRITION DIAGNOSIS: * Swallowing difficulty R/T respiratory failure, dysphagia as evidenced by trach/vent dep, PEG dep * Increased kcal/prot needs R/T wound healing as evidenced by admitted w/ multiple pressure injuries including full thickness wounds at junction of Shaft of penis, dorsal scrotum, R elbow, and DTPI @ L buttocks. CURRENT TF:Osmolite 1.2 @ 60ml/hr x 20 hrs + Garo BID ENTERAL NUTRITION RECOMMENDATIONS: Vital AF 1.2 @ 60ml/hr x 20 hrs to provide 1200ml, 1440kcal, 90g prot, 973ml free water * Rec 20 hr run time for GI rest. -> W/ improved GI status, rec Vital AF 1.2, an elemental and carb controlled TF -> monitor lytes and renal fxn closely, monitor need for renal TF -> TF @ goal will provide 1642mg K and 2025mg Phos -> HOB over 30 degrees/ water flush per -------- Trial of Osmolite 1.2 continue for now- Goal of 60ml/hr for 20 hrs (4 hrs bowel rest) to provide 1200ml, 1440 kcal, 67g pro, 984ml free H2O, -> Rec to add prosource 1 pack daily (11g pro) to better meet est pro needs. -> Monitor BG, K closely. Pt would require increased insulin coverage as TF at goal would provide 56g more carbs per day. ADDITIONAL RECOMMENDATIONS: * Per SNF: HT=63" LW=592 lbs (vs EMR wt of 166lbs) -> obtain re-calibrated bedscale wt, rec daily wt monitoring * Wound healing: con't Nephrovite + Garo BID/ Vit C dosing per Nephro * Monitor renal fxn and lytes closely w/ non-renal TF ->K low, phos wnl;updated mag level; rec increased insulin w/ BG labs * Daily wts w/ drop to 118-20 lbs, rec to recalibrate for accurate CBW * Consider DC Miralax if medically appropriate: +rectal tube (11) Uremia (12) CKD (chronic kidney disease) stage 5, GFR less than 15 ml/min (13) Colon distention Assessment & Plan: discussed with GI likely functional as having lots of loose bm rectal tube kub f/u s/p colonoscopy - findings reviewed with GI improved cont diet as tolerated repeat KUB Marked distention of the sigmoid colon. 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 No evidence of bowel wall thickening or pneumatosis 12 mm focus of contrast enhancement in the right pectineus muscle. While nonspecific in appearance, appearance raises concern for a possible pseudoaneurysm. Ill- defined thickening of the pectus medius muscle could indicate some intramuscular hemorrhage. The above findings were phoned to Dr. Urias at the time of interpretation Large bilateral pleural effusions Hazy pulmonary parenchymal opacities as well as dense consolidative opacities most likely represent pulmonary edema, but could represent pneumonia Evidence of anasarca elsewhere, with generalized edema of the subcutaneous fat Bladder wall thickening, raises concern for cystitis. Avalos catheter in place Colonic diverticulosis. No evidence of diverticulitis. Tracheostomy Pacemaker Gastrostomy Gastrostomy again demonstrated in satisfactory position. The stomach is otherwise unremarkable. The distal esophagus and duodenum are unremarkable. Ingested contrast reaches the colon. No small bowel distention or small bowel wall thickening. Interim placement of a rectal tube. There are a few colonic diverticula. No definite evidence of acute diverticulitis. The appendix is prominent in caliber, as previously No free or loculated intraperitoneal gas or fluid is evident. Again demonstrated is marked gaseous distention of the sigmoid colon which measures up to 12.6 cm in diameter, with the proximal aspect located laterally to the distal aspect, and caliber transition in the mesenteric root of both entry points. However, there is stool within the proximal portion which appears to be at least partially contrast opacified, and no definite persisting of the vascular pedicle demonstrated. The liver, gallbladder, bile ducts, pancreas, spleen, adrenals, kidneys are unremarkable. There are accessory splenules demonstrated. No retroperitoneal or mesenteric mass or adenopathy. No pelvic mass or adenopathy. The prostate is enlarged and protrudes into the inferior bladder. The bladder is thick-walled. Previously demonstrated Avalos catheter has been removed. Again demonstrated is a large right pleural effusion and a moderate to large left pleural effusion. Again demonstrated are compressive atelectatic changes of significant portions of both lower lobes. Pacemaker wires are seen within the heart. Previously demonstrated high attenuation focus within the right pectineus muscle is not evident. However, there is a low-attenuation area which measures 2 cm diameter centrally which is not evident previously. There is diffuse edema of the subcutaneous fat. This is less severe than was demonstrated previously. There are degenerative proliferative changes of the lumbar spine. Impression: Abnormal configuration of the sigmoid colon, with marked distention of a sigmoid, inversion of the relationships of the proximal and descending colon, and evidence of immediately apposed transition point raises concern for sigmoid volvulus. However, similarity to the prior exam, presence of what appears to be contrast opacified stool within the dilated segment, and lack of evidence of twisting of the vascular pedicle raises the possibility that this is baseline for this patient or possibly dysfunctional in nature. Correlate with clinical findings Enlarged prostate with protrusion into the bladder floor. Bladder neoplasm not completely excludable as a result Thick-walled bladder, may indicate cystitis or be due to chronic bladder lumen obstruction related to the above Abnormalities right pectineus muscle, with a 2 cm central low attenuation area. Note that previous exam have a high attenuation focus suspicious for a small pseudoaneurysm. 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 Colonic diverticulosis. No evidence of diverticulitis Gastrostomy in good position Rectal tube in good position Large right and moderate to large left pleural effusions. Resultant compressive pulmonary atelectatic changes or graft edema subcutaneous fat, less severe than was demonstrated on prior 08/17/2019 exam. Jonathan Urias Nov 05, 2019 08:04
[2019-11-05] MEDS: Lactobacillus-GG tablet GT SCH ×2 (08:15→20:57)
[2019-11-05] MEDS: Zinc Oxide Oint 2oz TOPIC SCH ×2 (08:16→20:59)
[2019-11-05] MEDS: Metoprolol Tartrate 100mg tab GT SCH ×2 (08:16→21:00)
[2019-11-05] MEDS: Minoxidil 2.5mg tab GT SCH (08:16)
[2019-11-05] MEDS: Acetaminophen 650mg/20.3ml GT PRN (08:17)
[2019-11-05] MEDS: Heparin 5000 units/ml inj SUBQ SCH ×2 (08:17→20:58)
--- NOTE | 2019-11-05 08:50 | NUR ---
RD ASSESSMENT & RECOMMENDATIONS SEE CARE ACTIVITY FOR COMPLETE ASSESSMENT DAILY ESTIMATED NEEDS: Needs based on Renal, critical care, wound/ 61kg 22-30 kcals/kg [id number] total kcals 1.25-2 g protein/kg 76-122 g total protein Fluid per MD, now on HD NUTRITION DIAGNOSIS: * Swallowing difficulty R/T respiratory failure, dysphagia as evidenced by trach/vent dep, PEG dep * Increased kcal/prot needs R/T wound healing as evidenced by admitted w/ multiple pressure injuries including full thickness wounds at junction of Shaft of penis, dorsal scrotum, R elbow, and DTPI @ L buttocks, and now w/ DTPI wounds @ L medial hallux, L medial foot, BL heel, and partial thickness wound @ sacrum CURRENT TF:NEPRO @45ml/hr x20 hrs ENTERAL NUTRITION RECOMMENDATIONS: Nepro @45ml/hr x20 hrs + Prosource x1 qdaily to provide 900ml, 1620 kcal, 73g + 11g pro, 654 ml free H2O - Maintain Nepro @goal, as tolerated. - Add PROSOURCE qdaily (11g pro) to better meet est pro needs - Flush per MD/ HOB over 30 degrees. -> If tolerating well, would rec increase to goal of 50ml/hr x20 hrs for 1L, 1800 kcal, 81g pro, 727ml free H2O as daily wts are unclear, and continue to trend wt. ADDITIONAL RECOMMENDATIONS: * Per SNF: HT=63" TC=663 lbs (vs EMR wt of 166lbs) -> obtain re-calibrated bedscale wt, rec daily wt monitoring * Wound healing: add Nephrovite + add Garo BID/ Vit C dosing per Nephro * Monitor lytes, replete as needed (low K) * Monitor BGs, consider adding long acting insulin for improved BG control * Monitor stool output, need to change TF again-> less output .
--- NOTE | 2019-11-05 09:41 | Nephrology Progress Note ---
Assessment/Plan Plan Septic Shock -Restarted IV Abx per ID. ESRD - HD TTS + IVF boluses PRN. Anemia of CKD -TUYET. Subjective Subjective Obtunded. Objective Objective Last 24 Hour Vital Signs Date Time Temp Pulse Resp B/P (MAP) Pulse Ox O2 Delivery O2 Flow Rate FiO2 11/05/19 09:00 117 11/05/19 08:47 99.1 11/05/19 08:16 110 122/57 11/05/19 08:16 122/57 11/05/19 08:00 99.7 110 25 122/57 (78) 100 11/05/19 04:00 113 11/05/19 04:00 Mechanical Ventilator 11/05/19 04:00 97.9 20 121/54 (76) 100 11/05/19 04:00 24 11/05/19 02:43 107 14 24 11/05/19 00:00 Mechanical Ventilator 11/05/19 00:00 97.9 20 142/74 (96) 100 11/04/19 23:35 114 11/04/19 22:47 111 13 100 Mechanical Ventilator 24 112 17 24 11/04/19 21:00 82 111/52 11/04/19 20:00 109 11/04/19 20:00 99.8 18 111/52 (71) 100 11/04/19 20:00 Mechanical Ventilator 11/04/19 20:00 24 11/04/19 19:58 84 11/04/19 18:54 108 16 24 11/04/19 16:43 Mechanical Ventilator 11/04/19 16:42 24 11/04/19 16:39 111 11/04/19 16:00 99.5 18 107/65 (79) 100 11/04/19 15:09 111 20 24 11/04/19 12:53 106 11/04/19 12:51 98.2 103 18 121/65 (83) 100 11/04/19 12:16 24 11/04/19 12:06 Mechanical Ventilator 11/04/19 11:14 104 16 24 l Intake and Output 11/04/19 11/05/19 19:00 07:00 Intake Total 600 ml 605 ml Output Total 200 ml Balance 600 ml 405 ml Free Water 150 ml 110 ml Tube Feeding 450 ml 495 ml Stool Total 200 ml # Bowel Movements 3 3 Laboratory Tests 11/04/19 11:58: POC Whole Blood Glucose [Pending] 11/04/19 23:59: POC Whole Blood Glucose 216H 11/05/19 06:02: POC Whole Blood Glucose 206H 11/05/19 07:29: White Blood Count 15.0H, Red Blood Count 3.94L, Hemoglobin 9.1L, Hematocrit 29.6L, Mean Corpuscular Volume 75L, Mean Corpuscular Hemoglobin 23.2L, Mean Corpuscular Hemoglobin Concent 30.9L, Red Cell Distribution Width 18.3H, Platelet Count 586H, Mean Platelet Volume 5.6L, Neutrophils (%) (Auto) 75.4H, Lymphocytes (%) (Auto) 11.5L, Monocytes (%) (Auto) 8.6, Eosinophils (%) (Auto) 3.6H, Basophils (%) (Auto) 0.9, Sodium Level 135L, Potassium Level 3.8, Chloride Level 98, Carbon Dioxide Level 28, Anion Gap 9, Blood Urea Nitrogen 44H, Creatinine 2.6H, Estimat Glomerular Filtration Rate 24.0, Glucose Level 195H, Calcium Level 9.7 Height (Feet): 5 Height (Inches): 10.00 Weight (Pounds): 123 Objective Clammy, diaphoretic CV RR Trach clean Lungs CTA Perma Cath RIJ. Abd SNT. BS + E No CCE Barely responsive Erica Pichardo MD Nov 05, 2019 09:41
--- NOTE | 2019-11-05 09:47 | General Progress Note ---
Subjective ROS Limited/Unobtainable: Yes Allergies: Coded Allergies: No Known Allergies (Unverified , 06/10/19) Subjective remains ill on vent/ no change on HD vitals noted=remains tachycardic Objective Last 24 Hour Vital Signs Date Time Temp Pulse Resp B/P (MAP) Pulse Ox O2 Delivery O2 Flow Rate FiO2 11/05/19 09:00 117 11/05/19 08:47 99.1 11/05/19 08:16 110 122/57 11/05/19 08:16 122/57 11/05/19 08:00 99.7 110 25 122/57 (78) 100 11/05/19 04:00 113 11/05/19 04:00 Mechanical Ventilator 11/05/19 04:00 97.9 20 121/54 (76) 100 11/05/19 04:00 24 11/05/19 02:43 107 14 24 11/05/19 00:00 Mechanical Ventilator 11/05/19 00:00 97.9 20 142/74 (96) 100 11/04/19 23:35 114 11/04/19 22:47 111 13 100 Mechanical Ventilator 24 112 17 24 11/04/19 21:00 82 111/52 11/04/19 20:00 109 11/04/19 20:00 99.8 18 111/52 (71) 100 11/04/19 20:00 Mechanical Ventilator 11/04/19 20:00 24 11/04/19 19:58 84 11/04/19 18:54 108 16 24 11/04/19 16:43 Mechanical Ventilator 11/04/19 16:42 24 11/04/19 16:39 111 11/04/19 16:00 99.5 18 107/65 (79) 100 11/04/19 15:09 111 20 24 11/04/19 12:53 106 11/04/19 12:51 98.2 103 18 121/65 (83) 100 11/04/19 12:16 24 11/04/19 12:06 Mechanical Ventilator 11/04/19 11:14 104 16 24 Intake and Output 11/04/19 11/05/19 19:00 07:00 Intake Total 600 ml 605 ml Output Total 200 ml Balance 600 ml 405 ml Free Water 150 ml 110 ml Tube Feeding 450 ml 495 ml Stool Total 200 ml # Bowel Movements 3 3 Laboratory Tests 11/04/19 11:58: POC Whole Blood Glucose [Pending] 11/04/19 23:59: POC Whole Blood Glucose 216H 11/05/19 06:02: POC Whole Blood Glucose 206H 11/05/19 07:29: White Blood Count 15.0H, Red Blood Count 3.94L, Hemoglobin 9.1L, Hematocrit 29.6L, Mean Corpuscular Volume 75L, Mean Corpuscular Hemoglobin 23.2L, Mean Corpuscular Hemoglobin Concent 30.9L, Red Cell Distribution Width 18.3H, Platelet Count 586H, Mean Platelet Volume 5.6L, Neutrophils (%) (Auto) 75.4H, Lymphocytes (%) (Auto) 11.5L, Monocytes (%) (Auto) 8.6, Eosinophils (%) (Auto) 3.6H, Basophils (%) (Auto) 0.9, Sodium Level 135L, Potassium Level 3.8, Chloride Level 98, Carbon Dioxide Level 28, Anion Gap 9, Blood Urea Nitrogen 44H, Creatinine 2.6H, Estimat Glomerular Filtration Rate 24.0, Glucose Level 195H, Calcium Level 9.7 Height (Feet): 5 Height (Inches): 10.00 Weight (Pounds): 123 Objective GENERAL: Ill-appearing male, chronically debilitated. HEENT: Tracheostomy in midline. Questionable fullness in the submandibular region. LUNGS: Coarse breath sounds. reduced breath sounds CARDIAC: S1, S2. Regular rate and rhythm. tachy ABDOMEN: Soft. G-tube. EXTREMITIES: With noted edema. NEUROLOGICAL: Poorly responsive, weak diffusely. Assessment/Plan Assessment/Plan: IMPRESSION: 1. anemia. 2. fevers improved 3. Leukocytosis. 4. hypotension 5. Acute on chronic renal failure. 6. Hyponatremia. 7. Severe protein-calorie malnutrition. 8. Significantly elevated C-reactive protein concerning for infectious etiology. 9. Tracheostomy, G-tube. 10. Ventilator dependence. 11. anasarca 12. Hematuria 13. V pacing 14. hyponatremia 15. transaminitis, HIDA negative PLAN monitor vitals; cards following and control HR antibiotics per ID chronic care; unable to place care noted on vent/ no wean monitor labs and optimize ID follow up - wbc now worse dialysis ongoing- adjust lytes prognosis poor for recovery impression, plan, and exam edited and reviewed in detail care discussed with RN Ishaaya,Kain M MD Nov 05, 2019 09:47
--- NOTE | 2019-11-05 11:03 | NUR ---
CASE MANAGEMENT:REVIEW 11/05/19 SI: SEPSIS 99.7 117 25 122/57 100% ON VENT SUPPORT W/24% FIO2 WBC+15.0 BUN+44 CR+2.6 IS: HEPARIN SQ Q12 COLISTIN INH Q12 EPOETIN SQ MWF LACTOBACILLUS GT Q12 PEPCID GT QD LOPRESSOR GT Q12 MINOXIDIL GT QD : SDU STATUS PLAN: WAITING FOR HEALTH PLAN TO PROVIDE MARISABEL FOR DISCHARGE
[2019-11-05 12:00] VITALS: BP 93/52
--- NOTE | 2019-11-05 12:31 | Infectious Diseases Prog Note ---
Assessment/Plan Assessment/Plan A: 1. Pneumonia with Morganella & KPC COVID19 X2 : negative 2. ESRD on HD 3. Leukocytosis worsenig 4. Respiratory failure, Ventilator dependent 5. Anemia 6. Elevated transaminase 7. 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 Klebsiella line infection s/p line change 10. Diarrhea, C. difficile negative PLAN: 1. Observe of antibiotic Subjective ROS Limited/Unobtainable: Yes Allergies: Coded Allergies: No Known Allergies (Unverified , 06/10/19) Objective Last 24 Hour Vital Signs Date Time Temp Pulse Resp B/P (MAP) Pulse Ox O2 Delivery O2 Flow Rate FiO2 11/05/19 12:00 98.4 99 17 93/52 (66) 97 99 11/05/19 09:00 117 11/05/19 08:47 99.1 11/05/19 08:16 110 122/57 11/05/19 08:16 122/57 11/05/19 08:00 99.7 110 25 122/57 (78) 100 11/05/19 08:00 Mechanical Ventilator 11/05/19 08:00 24 11/05/19 04:00 113 11/05/19 04:00 Mechanical Ventilator 11/05/19 04:00 97.9 20 121/54 (76) 100 11/05/19 04:00 24 11/05/19 02:43 107 14 24 11/05/19 00:00 Mechanical Ventilator 11/05/19 00:00 97.9 20 142/74 (96) 100 11/04/19 23:35 114 11/04/19 22:47 111 13 100 Mechanical Ventilator 24 112 17 24 11/04/19 21:00 82 111/52 11/04/19 20:00 109 11/04/19 20:00 99.8 18 111/52 (71) 100 11/04/19 20:00 Mechanical Ventilator 11/04/19 20:00 24 11/04/19 19:58 84 11/04/19 18:54 108 16 24 11/04/19 16:43 Mechanical Ventilator 11/04/19 16:42 24 11/04/19 16:39 111 11/04/19 16:00 99.5 18 107/65 (79) 100 11/04/19 15:09 111 20 24 11/04/19 12:53 106 11/04/19 12:51 98.2 103 18 121/65 (83) 100 Height (Feet): 5 Height (Inches): 10.00 Weight (Pounds): 123 General Appearance: no acute distress HEENT: status post trach Respiratory/Chest: lungs clear, other - on ventilator Cardiovascular: tachycardia, other - HD access Abdomen: soft, non tender, other - GT feeding Extremities: no edema, other - contracture Neurologic/Psychiatric: aphasia Laboratory Tests Test 11/04/19 23:59 11/05/19 06:02 11/05/19 07:29 11/05/19 11:39 POC Whole Blood Glucose 216 MG/DL (74-106) H 206 MG/DL (74-106) H 132 MG/DL (74-106) H White Blood Count 15.0 K/UL (4.8-10.8) H Red Blood Count 3.94 M/UL (4.70-6.10) L Hemoglobin 9.1 G/DL (14.2-18.0) L Hematocrit 29.6 % (42.0-52.0) L Mean Corpuscular Volume 75 FL (80-99) L Mean Corpuscular Hemoglobin 23.2 PG (27.0-31.0) L Mean Corpuscular Hemoglobin Concent 30.9 G/DL (32.0-36.0) L Red Cell Distribution Width 18.3 % (11.6-14.8) H Platelet Count 586 K/UL (150-450) H Mean Platelet Volume 5.6 FL (6.5-10.1) L Neutrophils (%) (Auto) 75.4 % (45.0-75.0) H Lymphocytes (%) (Auto) 11.5 % (20.0-45.0) L Monocytes (%) (Auto) 8.6 % (1.0-10.0) Eosinophils (%) (Auto) 3.6 % (0.0-3.0) H Basophils (%) (Auto) 0.9 % (0.0-2.0) Sodium Level 135 MMOL/L (136-145) L Potassium Level 3.8 MMOL/L (3.5-5.1) Chloride Level 98 MMOL/L (98-107) Carbon Dioxide Level 28 MMOL/L (21-32) Anion Gap 9 mmol/L (5-15) Blood Urea Nitrogen 44 mg/dL (7-18) H Creatinine 2.6 MG/DL (0.55-1.30) H Estimat Glomerular Filtration Rate 24.0 mL/min (>60) Glucose Level 195 MG/DL (74-106) H Calcium Level 9.7 MG/DL (8.5-10.1) Current Medications Medications (Trade) Dose Ordered Sig/Leonel Route PRN Reason Start Time Stop Time Status Last Admin Dose Admin Acetaminophen (Tylenol) 650 mg Q6H PRN GT Temp >100.5 10/21/19 20:45 11/20/19 20:44 11/05/19 08:17 Chlorhexidine Gluconate (Felipa-Hex 2%) 1 applic DAILY@1999 TOPIC 09/12/19 20:00 12/11/19 19:59 11/04/19 21:09 Clonidine HCl (Catapres Tab) 0.1 mg Q4H PRN GT For High Blood Pressure 09/09/19 12:30 12/08/19 05:29 09/15/19 04:10 Colistimethate Sodium (Colistin *inhalation use only*) 75 mg Q12HR@ INH 10/30/19 22:00 11/06/19 21:59 11/04/19 22:46 Dextrose (Dextrose 50%) 25 ml Q30M PRN IV Hypoglycemia 08/09/19 07:30 11/07/19 07:29 Dextrose (Dextrose 50%) 50 ml Q30M PRN IV Hypoglycemia 08/09/19 07:30 11/07/19 07:29 Epoetin Andreas (Epoetin Andreas(ESRD on dialysis)) 8,000 unit WED-WED-WED SUBQ 10/25/19 21:00 01/23/20 20:59 11/03/19 21:48 Famotidine (Pepcid) 20 mg DAILY GT 08/30/19 09:00 11/28/19 08:59 11/05/19 08:15 Heparin Sodium (Porcine) (Heparin 5000 units/ml) 5,000 units EVERY 12 HOURS SUBQ 11/02/19 09:00 12/17/19 08:59 11/05/19 08:17 Insulin Aspart (NovoLOG) Q6HR SUBQ 09/25/19 18:00 11/07/19 11:29 11/05/19 06:15 Lactobacillus Acidophilus (Culturelle) 1 tab EVERY 12 HOURS GT 10/03/19 21:00 12/13/19 17:59 11/05/19 08:15 Loperamide HCl (Imodium) 2 mg Q6H PRN NG Diarrhea 10/15/19 07:45 11/14/19 07:44 Metoprolol Tartrate (Lopressor) 200 mg Q12HR GT 08/09/19 09:00 11/07/19 08:59 11/05/19 08:16 Minoxidil (Loniten) 5 mg DAILY GT 08/09/19 09:00 11/07/19 08:59 11/05/19 08:16 Sodium Chloride 500 ml @ 999 mls/hr Q31M PRN IV sbp<90 10/28/19 21:30 11/27/19 21:29 Zinc Oxide (Zinc Oxide) 1 applic EVERY 12 HOURS TOPIC 10/03/19 09:00 11/08/19 17:59 11/05/19 08:16 Real De Leon MD Nov 05, 2019 12:31
--- NOTE | 2019-11-05 13:56 | Hematology/Onc Progress Note ---
Assessment/Plan Assessment/Plan Assessment/recs # Anemia due to chronic disease/kidney disease as well, gi bleed + occult + noted --> was on iron in the past, now on hold --> has been started on Epogen sq --> as per renal care --> egd done and shows gastritis --> on ppi --> egd showed gastritis, colo recently done --> hgb 9-->8. 7-->7.6-->9.2-->8.9-->9.2->9.3-->8.8->9.9-->9.2-->8.1-->8.7-->7.9-->8.6-->8.9--> 8.2->9-->9.3->8.9-->9.5-->10.6->9.2-->10->8.9--> 8.3-->8.9-->9.9-->9.3-->9-->9.3->11-->8.6->8.7>9-->8.4-->9.1 --> spep ordered->wnl # Leukocytosis - with multiple infections, VRE UTI, flow is negative --> wbc trend 33-->28-->25->23->22->23->24->17.3-->17-->14->16-->15.6-->14-->14->13 ->19->18->17->22->22->19->17-->18->20-->15-->14->16-->14-->17->18-->17->15-->16- ->17->28->19-->21-->19-->23->15 --> on abx, linezolid and zosyn--> zosyn-->gent-->off-->vanc/zosyn-->cefepime/colistin --> + blood cultures with coag neg staph likely contaminated --> as per id recs --> has ordered a flow cytometry (with pathology) --> does show increased nK cell activity --> JOURDAN 2 and bcr-abl labs ordered (these are send outs)->negative --> plt 585-->613-->649-->669->663-->529-->506-->620-->720 # Elevated ddimer on admission --> duplex lower legs neg for dvt # Respiratory failure --> per pulm, s/p trach --> COVID 19 test negative x 2 # Hyperlipidemia --> statin po # Dysphagia s/p gtube with nepro --> per gi # ESRD with r fem julito --> hd as per renal # Dvt ppx heparin sq Appreciate consultation and dw Rn Subjective Constitutional: Denies: no symptoms, chills, fever, malaise, weakness, other HEENT: Denies: no symptoms, eye pain, blurred vision, tearing, double vision, ear pain, ear discharge, nose pain, nose congestion, throat pain, throat swelling, mouth pain, mouth swelling, other Cardiovascular: Denies: no symptoms, chest pain, edema, irregular heart rate, lightheadedness, palpitations, syncope, other Respiratory: Denies: no symptoms, cough, shortness of breath, SOB with excertion, SOB at rest, sputum, wheezing, other Gastrointestinal/Abdominal: Denies: no symptoms, abdomen distended, abdominal pain, black stools, tarry stools, blood in stool, constipated, diarrhea, difficulty swallowing, nausea, poor appetite, poor fluid intake, rectal bleeding, vomiting, other Genitourinary: Denies: no symptoms, burning, discharge, frequency, flank pain, hematuria, incontinence, pain, urgency, other Neurologic/Psychiatric: Denies: no symptoms, anxiety, depressed, emotional problems, headache, numbness, paresthesia, pre-existing deficit, seizure, tingling, tremors, weakness, other Endocrine: Denies: no symptoms, excessive sweating, flushing, intolerance to cold, intolerance to heat, increased hunger, increased thirst, increased urine, unexplained weight gain, unexplained weight loss, other Allergies: Coded Allergies: No Known Allergies (Unverified , 06/10/19) Subjective 7/8 meds noted, no bleeding, hgb 8.8, wbc 28, path flow pending 08/16 flow pending dw pathologist, results pending, wbc 25, hgb 9 08/17 labs reviewed, meds reviewed, meds noted, no night sweats 08/19 remains obtunded, on vent/trach, no bleeding wbc 21.7 08/20 labs have been reviewed, no bleeding, wbc still elev, path reviewed 08/21 labs are noted, no bleeding, on vent, wbc better 08/22 labs noted, no bleeding, meds reviewed, wbc 24 hgb 7.6 08/23 vent, off abx, c diff negative, h/h stable 08/24 labs reviewed, on abx, wbc 17, hgb 8.9, no hemolysis 08/26 reviewed flow and is negative for leukemia, matt rn 08/27 meds reviewed, no night sweats, amtt rn, no major bleeding 08/28 meds reivewed, labs noted 08/29 wbc is stable, approx 15, hgb 8.8, no hemolysis 08/30 labs are noted, is for colo today, hgb 9.9 08/31 right fem julito in place, unchanged, hgb 9.2, gi aware 09/01 labs noted, hgb 8.8, plt >600, no bleeding 09/02 labs noted, no bleeding, with elev wbc still, no new changes 09/03 meds are noted, no bleeding, labs reviewed hgb 8.6 09/04 no major events, hd as per renal, abx, no bleeding hgb low 09/05 labs are noted, no bleeding, meds have been reviewed 09/06 no new labs no hemolysis, cbc is noted, no bleeding 09/07 meds reviewed, no bleeding, matt rn, permacath functioning well 09/09 meds reviewed, wbc still elevated, as per id recs, cbc noted 09/10 is obtunded, with gutbe in place, labs reviewed 09/11 obtunded, as per id, observe now off abx, labs noted, wbc 19 09/12 cbc is pending, remains on epogen, also off abx 09/13 labs reviewed, no bleeding, elev wbc, no night sweats 09/14 meds noted, no bleeding, wbc 19, hgb 9.5, no night sweats 09/21 obtunded, remains on vent, labs noted, no bleeding, hgb 8.9 09/22 obtunded, labs noted, no bleeding, on vent, unchanged 09/23 unchanges, wbc remains elevated 20k, on abx, on vent 09/24 labs have been reviewed, no bleeding, wbc 15, may need abx 09/25 formula gtube changed, labs noted, remains obtunded, hgb 9.3 09/26 labs have been reviewed, no bleeding, matt rn, no night sweats 09/27 meds reviewed, no bleeding, wbc 14, on abx, remains obtunded 09/28 remains obtunded, no bleeding, wbc better, hgb 8.9, no hemolysis, plt 506 09/30 on colisitn, wbc elevated, cefepime added per id, hgb stable 10/01 labs reviewed, no bleeding, matt rn, no major events noted, wbc 14, hgb 10.6 10/02 labs have been noted, hgb 9.2, wbc 17, on abx, matt rn 10/03 continue on tube feeds, no bleeding, on vent, wbc remains elevated 10/04 remains ibtunded, is on a mechanical ventilator with tube feeds noted 10/05 labs are noted, hgb 8.6, wbc remains elevated, have ordered for spep 10/07 obtunded on vent, with gtube feeds, labs reviewed, matt rn 10/08 labs are noted, on vent/trach, hgb 10.2, remains obtunded 10/09 labns noted, wbc 15, hgb 8.9, remains altered, on tfs 10/10 labs noted, holding tube feeds, matt rn, hg stable 8.3 currently 10/11 remains on tfs, supportive care, labs noted, no bleeding 10/12 remains obtunded, hgb 8.9, no hemolysis is seen 10/14 labs reviewed, no bleeding, pending potential hd if rn available 10/15 is on vent, with gtube, labs reviewed, no bleeding, to get hd soon 10/16 remains on vent, matt rn at bedside, wbc 15, abx prn, plt also higher, will monitor 10/17 on vent, continue on tube feeds via gtube, labs improved 10/18 labs noted, remains on vent, and tube feeds, no major changes 10/19 nad, no bleeding, labs reviewed, no night sweats, bp elevated, cards aware 10/21 labs pending, with gtube running, on mec vent, abx off 10/22 labs reviewed, no major changes, wbc 18, plt 791k, on gtube feeds 10/23 labs reviewed, meds noted, on epogen and lovenox sq, obtunded, is nv 9.16 labs are noted, wbc 28, hgb 8.6, no hemolysis is noted 10/27 labs reviewed, on mech vent, on gtube feeds, no bleeding wbc 21 10/28 labs noted, wbc 19, plt remains elevated, hd as per renal Dr. Frank 10/29 obtunded, gt feedings on hold, wbc 19, hgb 9, no bleeding 10/30 labs reviewed, no bleeding, wbc 21, hgb 9, hd as per renal care 10/31 labs are noted, wbc 19, hgb 8.4, on vent, obtunded 11/01 obtunded state, no bleeding, meds reviewed, on heparin started today, matt rn 11/02 nv, trach, no bleeding, wbc has increased likely due to infection 11/03 is off abx, no bleeding, meds noted, no hemolysis seen, wbc 15 Objective Objective Current Medications Medications (Trade) Dose Ordered Sig/Leonel Route PRN Reason Start Time Stop Time Status Last Admin Dose Admin Acetaminophen (Tylenol) 650 mg Q6H PRN GT Temp >100.5 10/21/19 20:45 11/20/19 20:44 11/05/19 08:17 Chlorhexidine Gluconate (Felipa-Hex 2%) 1 applic DAILY@1999 TOPIC 09/12/19 20:00 12/11/19 19:59 11/04/19 21:09 Clonidine HCl (Catapres Tab) 0.1 mg Q4H PRN GT For High Blood Pressure 09/09/19 12:30 12/08/19 05:29 09/15/19 04:10 Dextrose (Dextrose 50%) 25 ml Q30M PRN IV Hypoglycemia 08/09/19 07:30 11/07/19 07:29 Dextrose (Dextrose 50%) 50 ml Q30M PRN IV Hypoglycemia 08/09/19 07:30 11/07/19 07:29 Epoetin Andreas (Epoetin Andreas(ESRD on dialysis)) 8,000 unit WED-WED-WED SUBQ 10/25/19 21:00 01/23/20 20:59 11/03/19 21:48 Famotidine (Pepcid) 20 mg DAILY GT 08/30/19 09:00 11/28/19 08:59 11/05/19 08:15 Heparin Sodium (Porcine) (Heparin 5000 units/ml) 5,000 units EVERY 12 HOURS SUBQ 11/02/19 09:00 12/17/19 08:59 11/05/19 08:17 Insulin Aspart (NovoLOG) Q6HR SUBQ 09/25/19 18:00 11/07/19 11:29 11/05/19 06:15 Lactobacillus Acidophilus (Culturelle) 1 tab EVERY 12 HOURS GT 10/03/19 21:00 12/13/19 17:59 11/05/19 08:15 Loperamide HCl (Imodium) 2 mg Q6H PRN NG Diarrhea 10/15/19 07:45 11/14/19 07:44 Metoprolol Tartrate (Lopressor) 200 mg Q12HR GT 08/09/19 09:00 11/07/19 08:59 11/05/19 08:16 Minoxidil (Loniten) 5 mg DAILY GT 08/09/19 09:00 11/07/19 08:59 11/05/19 08:16 Sodium Chloride 500 ml @ 999 mls/hr Q31M PRN IV sbp<90 10/28/19 21:30 11/27/19 21:29 Zinc Oxide (Zinc Oxide) 1 applic EVERY 12 HOURS TOPIC 10/03/19 09:00 11/08/19 17:59 11/05/19 08:16 Last 24 Hour Vital Signs Date Time Temp Pulse Resp B/P (MAP) Pulse Ox O2 Delivery O2 Flow Rate FiO2 11/05/19 12:00 24 11/05/19 12:00 98.4 99 17 93/52 (66) 97 99 11/05/19 12:00 Mechanical Ventilator 11/05/19 12:00 99 11/05/19 09:00 117 11/05/19 08:47 99.1 11/05/19 08:16 110 122/57 11/05/19 08:16 122/57 11/05/19 08:00 99.7 110 25 122/57 (78) 100 11/05/19 08:00 Mechanical Ventilator 11/05/19 08:00 24 11/05/19 07:15 95 14 24 11/05/19 04:00 113 11/05/19 04:00 Mechanical Ventilator 11/05/19 04:00 97.9 20 121/54 (76) 100 11/05/19 04:00 24 11/05/19 02:43 107 14 24 11/05/19 00:00 Mechanical Ventilator 11/05/19 00:00 97.9 20 142/74 (96) 100 11/04/19 23:35 114 11/04/19 22:47 111 13 100 Mechanical Ventilator 24 112 17 24 11/04/19 21:00 82 111/52 11/04/19 20:00 109 11/04/19 20:00 99.8 18 111/52 (71) 100 11/04/19 20:00 Mechanical Ventilator 11/04/19 20:00 24 11/04/19 19:58 84 11/04/19 18:54 108 16 24 11/04/19 16:43 Mechanical Ventilator 11/04/19 16:42 24 11/04/19 16:39 111 11/04/19 16:00 99.5 18 107/65 (79) 100 11/04/19 15:09 111 20 24 11/04/19 12:53 106 11/04/19 12:51 98.2 103 18 121/65 (83) 100 11/04/19 12:16 24 11/04/19 12:06 Mechanical Ventilator 11/04/19 11:14 104 16 24 11/04/19 08:37 113 112/69 11/04/19 08:37 112/69 11/04/19 08:23 98.0 113 18 112/69 (83) 100 11/04/19 08:11 113 15 24 11/04/19 08:00 Mechanical Ventilator 11/04/19 08:00 24 11/04/19 08:00 113 11/04/19 04:00 24 11/04/19 03:46 97.6 95 22 142/76 (98) 100 11/04/19 03:39 108 11/04/19 03:14 104 15 24 11/04/19 03:03 Mechanical Ventilator 11/04/19 03:01 24 11/04/19 00:00 24 11/04/19 00:00 97.7 106 18 124/52 (76) 100 11/04/19 00:00 Mechanical Ventilator 11/04/19 00:00 94 11/03/19 23:16 93 15 100 Mechanical Ventilator 24 96 17 24 11/03/19 21:00 92 95/53 11/03/19 20:00 98.6 92 16 95/53 (67) 100 11/03/19 20:00 24 11/03/19 20:00 Mechanical Ventilator 11/03/19 19:32 102 11/03/19 19:03 108 22 24 11/03/19 16:00 103 11/03/19 16:00 97.7 106 18 102/57 (72) 100 102 11/03/19 16:00 24 11/03/19 16:00 Mechanical Ventilator 11/03/19 15:20 104 18 24 Intake and Output 11/04/19 11/05/19 19:00 07:00 Intake Total 600 ml 605 ml Output Total 200 ml Balance 600 ml 405 ml Free Water 150 ml 110 ml Tube Feeding 450 ml 495 ml Stool Total 200 ml # Bowel Movements 3 3 Labs Test 11/02/19 16:40 11/02/19 23:13 11/03/19 05:16 11/03/19 11:42 POC Whole Blood Glucose 154 MG/DL (74-106) 147 MG/DL (74-106) 143 MG/DL (74-106) 179 MG/DL (74-106) Test 11/03/19 16:35 11/04/19 00:10 11/04/19 02:55 11/04/19 06:05 POC Whole Blood Glucose 160 MG/DL (74-106) 186 MG/DL (74-106) 164 MG/DL (74-106) White Blood Count 18.3 K/UL (4.8-10.8) Red Blood Count 4.19 M/UL (4.70-6.10) Hemoglobin 9.7 G/DL (14.2-18.0) Hematocrit 31.5 % (42.0-52.0) Mean Corpuscular Volume 75 FL (80-99) Mean Corpuscular Hemoglobin 23.0 PG (27.0-31.0) Mean Corpuscular Hemoglobin Concent 30.6 G/DL (32.0-36.0) Red Cell Distribution Width 17.6 % (11.6-14.8) Platelet Count 632 K/UL (150-450) Mean Platelet Volume 5.9 FL (6.5-10.1) Neutrophils (%) (Auto) % (45.0-75.0) Lymphocytes (%) (Auto) % (20.0-45.0) Monocytes (%) (Auto) % (1.0-10.0) Eosinophils (%) (Auto) % (0.0-3.0) Basophils (%) (Auto) % (0.0-2.0) Differential Total Cells Counted 100 Neutrophils % (Manual) 65 % (45-75) Lymphocytes % (Manual) 25 % (20-45) Monocytes % (Manual) 6 % (1-10) Eosinophils % (Manual) 4 % (0-3) Basophils % (Manual) 0 % (0-2) Band Neutrophils 0 % (0-8) Platelet Estimate Increased Platelet Morphology Normal Hypochromasia 2+ Anisocytosis 1+ Sodium Level 128 MMOL/L (136-145) Potassium Level 3.9 MMOL/L (3.5-5.1) Chloride Level 92 MMOL/L (98-107) Carbon Dioxide Level 25 MMOL/L (21-32) Blood Urea Nitrogen 69 mg/dL (7-18) Creatinine 3.4 MG/DL (0.55-1.30) Estimat Glomerular Filtration Rate 17.6 mL/min (>60) Glucose Level 154 MG/DL (74-106) Calcium Level 9.8 MG/DL (8.5-10.1) Total Bilirubin 0.4 MG/DL (0.2-1.0) Aspartate Amino Transf (AST/SGOT) 43 U/L (15-37) Alanine Aminotransferase (ALT/SGPT) 60 U/L (12-78) Alkaline Phosphatase 308 U/L (46-116) Total Protein 7.4 G/DL (6.4-8.2) Albumin 1.8 G/DL (3.4-5.0) Globulin 5.6 g/dL Albumin/Globulin Ratio 0.3 (1.0-2.7) Test 11/04/19 11:58 11/04/19 23:59 11/05/19 06:02 11/05/19 07:29 POC Whole Blood Glucose 216 MG/DL (74-106) 206 MG/DL (74-106) White Blood Count 15.0 K/UL (4.8-10.8) Red Blood Count 3.94 M/UL (4.70-6.10) Hemoglobin 9.1 G/DL (14.2-18.0) Hematocrit 29.6 % (42.0-52.0) Mean Corpuscular Volume 75 FL (80-99) Mean Corpuscular Hemoglobin 23.2 PG (27.0-31.0) Mean Corpuscular Hemoglobin Concent 30.9 G/DL (32.0-36.0) Red Cell Distribution Width 18.3 % (11.6-14.8) Platelet Count 586 K/UL (150-450) Mean Platelet Volume 5.6 FL (6.5-10.1) Neutrophils (%) (Auto) 75.4 % (45.0-75.0) Lymphocytes (%) (Auto) 11.5 % (20.0-45.0) Monocytes (%) (Auto) 8.6 % (1.0-10.0) Eosinophils (%) (Auto) 3.6 % (0.0-3.0) Basophils (%) (Auto) 0.9 % (0.0-2.0) Sodium Level 135 MMOL/L (136-145) Potassium Level 3.8 MMOL/L (3.5-5.1) Chloride Level 98 MMOL/L (98-107) Carbon Dioxide Level 28 MMOL/L (21-32) Anion Gap 9 mmol/L (5-15) Blood Urea Nitrogen 44 mg/dL (7-18) Creatinine 2.6 MG/DL (0.55-1.30) Estimat Glomerular Filtration Rate 24.0 mL/min (>60) Glucose Level 195 MG/DL (74-106) Calcium Level 9.7 MG/DL (8.5-10.1) Test 11/05/19 11:39 POC Whole Blood Glucose 132 MG/DL (74-106) Height (Feet): 5 Height (Inches): 10.00 Weight (Pounds): 123 Objective Physical Exam General Appearance: nad, Chronically Ill Head: normocephalic Eyes: right eye PERRL - Will not open left eye ENT: moist mucus membranes Neck: other - submandibular mass R, fairly rigid with resistance to rotation to L, tracheotomy Respiratory: decreased breath sounds, crackles, other - pacemaker, vent+ Cardiovascular: regular rate, rhythm, edema - anasarca Gastrointestinal: non tender, distended, other - G tube Genitourinary: other Musculoskeletal: other - Contractures all extremities Neurologic: sensory intact, motor weakness, responsive Psychiatric: other Skin: Decubitus/Ulcer - Stage III right elbow, stage III left elbow, stage II sacrum, stage III scrotum, warm/dry Fitz Campos MD Nov 05, 2019 13:56
[2019-11-05 16:00] VITALS: BP 101/73
--- NOTE | 2019-11-05 17:40 | General Progress Note ---
Subjective Allergies: Coded Allergies: No Known Allergies (Unverified , 06/10/19) Subjective above noted NAD on TF non communicative d/w RN Objective Last 24 Hour Vital Signs Date Time Temp Pulse Resp B/P (MAP) Pulse Ox O2 Delivery O2 Flow Rate FiO2 11/05/19 16:00 24 11/05/19 16:00 98.3 77 18 101/73 (82) 95 11/05/19 16:00 90 11/05/19 16:00 Mechanical Ventilator 11/05/19 15:10 91 16 24 11/05/19 12:00 24 11/05/19 12:00 98.4 99 17 93/52 (66) 97 99 11/05/19 12:00 Mechanical Ventilator 11/05/19 12:00 99 11/05/19 11:19 89 16 24 11/05/19 09:00 117 11/05/19 08:47 99.1 11/05/19 08:16 110 122/57 11/05/19 08:16 122/57 11/05/19 08:00 99.7 110 25 122/57 (78) 100 11/05/19 08:00 Mechanical Ventilator 11/05/19 08:00 24 11/05/19 07:15 95 14 24 11/05/19 04:00 113 11/05/19 04:00 Mechanical Ventilator 11/05/19 04:00 97.9 20 121/54 (76) 100 11/05/19 04:00 24 11/05/19 02:43 107 14 24 11/05/19 00:00 Mechanical Ventilator 11/05/19 00:00 97.9 20 142/74 (96) 100 11/04/19 23:35 114 11/04/19 22:47 111 13 100 Mechanical Ventilator 24 112 17 24 11/04/19 21:00 82 111/52 11/04/19 20:00 109 11/04/19 20:00 99.8 18 111/52 (71) 100 11/04/19 20:00 Mechanical Ventilator 11/04/19 20:00 24 11/04/19 19:58 84 11/04/19 18:54 108 16 24 Intake and Output 11/04/19 11/05/19 19:00 07:00 Intake Total 600 ml 605 ml Output Total 200 ml Balance 600 ml 405 ml Free Water 150 ml 110 ml Tube Feeding 450 ml 495 ml Stool Total 200 ml # Bowel Movements 3 3 Laboratory Tests 11/04/19 23:59: POC Whole Blood Glucose 216H 11/05/19 06:02: POC Whole Blood Glucose 206H 11/05/19 07:29: White Blood Count 15.0H, Red Blood Count 3.94L, Hemoglobin 9.1L, Hematocrit 29.6L, Mean Corpuscular Volume 75L, Mean Corpuscular Hemoglobin 23.2L, Mean Corpuscular Hemoglobin Concent 30.9L, Red Cell Distribution Width 18.3H, Platelet Count 586H, Mean Platelet Volume 5.6L, Neutrophils (%) (Auto) 75.4H, Lymphocytes (%) (Auto) 11.5L, Monocytes (%) (Auto) 8.6, Eosinophils (%) (Auto) 3.6H, Basophils (%) (Auto) 0.9, Sodium Level 135L, Potassium Level 3.8, Chloride Level 98, Carbon Dioxide Level 28, Anion Gap 9, Blood Urea Nitrogen 44H, Creatinine 2.6H, Estimat Glomerular Filtration Rate 24.0, Glucose Level 195H, Calcium Level 9.7 11/05/19 11:39: POC Whole Blood Glucose 132H 11/05/19 16:52: POC Whole Blood Glucose 144H Height (Feet): 5 Height (Inches): 10.00 Weight (Pounds): 123 Objective Debilitated AA man NCAT (+) trach coarse BS RR abd less distended, anasarca, (+) GT, (+) rectal tube ext contracted Assessment/Plan Assessment/Plan: Assessment - abdominal distention, due to colonic dysmotility, - colonoscopy negative to hepatic flexure - diarrhea - presumed TF related - abnormal LFT - ? etiology --> HIDA negative and CT negative - Anemia - leukocytosis - stool OB (+) - EGD --> gastritis - Renal failure - Anasarca - resp failure, trach - b/l pleural effusions - dysphagia, GT - encephalopathy, contracted - poor px Recommendations - continue TF - check hepatitis markers - negative - rectal tube - roll side to side as feasible (hard due to severe contractions) - Elevate HOB - f/u labs - PPI - abx - supportive care Ronny Mustafa MD Nov 05, 2019 17:40
--- NOTE | 2019-11-05 19:09 | NUR ---
NURSE HAND-OFF REPORT: Important Events on Shift: NA Patient Status: stable,mild fever 99.5 now 98.3 Diet: Nephro @ 45ml/h Pending Orders: NA Pending Results/Labs:NA Pending MD notification:NA Latest Vital Signs: Temperature 98.3 , Pulse 92 , B/P 101 /73 , Respiratory Rate 14 , O2 SAT 95 , Mechanical Ventilator, O2 Flow Rate 15.0 . Vital Sign Comment: stable EKG Rhythm: V-Paced Rhythm change?: N MD Notified?: N - MD Response: Latest Delacruz Fall Score: 70 Fall Risk: High Risk Safety Measures: Call light Within Reach, Bed Alarm Zone 2, Side Rails Side Rails x3, Bed position Low and Locked. Fall Precautions: Yellow Socks Yellow Gown Patient Fall Education Report given to TAMICA Obrien.
--- NOTE | 2019-11-05 19:20 | NUR ---
NURSE NOTES: Pt received from TAMICA العلي alert and oriented x0, obtunded. Vent-dependent - Portex 8, AC 12, TV 550, 24%, Peep 5, saturating at 100%. Gtube feed tolerated at 45ml, gastric residual noted at 20 ml. Rectal tube noted with dark brown liquid stool. Permacath noted on R upper chest, dressing clean, dry and intact. IV site asymptomatic and patent - R hand 20g, saline lock. clinician oncology on - V-paced. Bed in lowest position, bed alarm on. Call light and belongings within reach.
[2019-11-05 20:00] VITALS: BP 110/50
[2019-11-05] MEDS: Dyna-Hex 2% Top Sol 2oz TOPIC SCH (20:57)
--- NOTE | 2019-11-05 23:10 | NUR ---
NURSE NOTES: Bed bath and wound care provided as ordered. Wound dressings changed per MD orders. Oral care and suction done q4h and as needed. Repositioned frequently every 2 hrs and as needed. Gtube feed tolerating at 45 ml/hr, 10 ml gastric residual noted. Bed in lowest position, bed alarm on. Call light and belongings within reach.
[2019-11-06] VITALS: BP 114/59
[2019-11-06 04:00] VITALS: BP 134/70
[2019-11-06] MEDS: Acetaminophen 650mg/20.3ml GT PRN (04:43)
[2019-11-06] MEDS: NovoLOG Insulin Flexpen SUBQ SCH ×4 (05:24→23:11)
--- NOTE | 2019-11-06 05:59 | NUR ---
NURSE NOTES: At 0400 VS check, pt spiked low-grade temp of 99.0. Administered tylenol PRN, reassessment showed 100.4. Cooling measures further provided, reassessment at 0545 showed 98.1. Will continue to monitor.
--- NOTE | 2019-11-06 07:09 | NUR ---
NURSE HAND-OFF REPORT: Important Events on Shift: Patient developed low-grade fever of 100.4 at the highest, cooling measures and Tylenol PRN given. Reassessment showed 98.1. Oral care and suctioning provided frequently q4h and as needed. Patient remains stable. Patient Status: Stable Diet: Nepro GT Pending Orders: n/a Pending Results/Labs: n/a Pending MD notification: n/a Latest Vital Signs: Temperature 98.1 , Pulse 81 , B/P 134 /70 , Respiratory Rate 13 , O2 SAT 100 , Mechanical Ventilator, O2 Flow Rate 15.0 . Vital Sign Comment: WNL EKG Rhythm: V-Paced Rhythm change?: N Notified?: N Response: Latest Delacruz Fall Score: 70 Fall Risk: High Risk Safety Measures: Call light Within Reach, Bed Alarm Zone 2, Side Rails Side Rails x3, Bed position Low and Locked. Fall Precautions: Yes Yellow Socks Yellow Gown Patient Fall Education Report given to TAMICA العلي.
--- NOTE | 2019-11-06 07:39 | NUR ---
NURSE NOTES: Received report from TAMICA Obrien. Patient in bed resting, no active s/s cardiac, respiratory distress noticed at this time. Patient Obtunded, Trach to vent Portex 8 AC 12 TV 550 Fio2 24% PEEP 5. GT feeding on hold per order, Nephro @ 45ml/h, GT patent, intact. HD access, right SC Permacath, patent intact. IV on right hand 20G, asymptomatic, patent, intact. Endorsed mild fever last night, Tylenol given once. Rectal tube draining well to gravity. Bed in lowest position, side rails upx3, call light within reach, bed alarm on, Will continue to monitor.
[2019-11-06 08:00] VITALS: BP 134/74
[2019-11-06] MEDS: Lactobacillus-GG tablet GT SCH ×2 (08:15→20:47)
[2019-11-06] MEDS: Minoxidil 2.5mg tab GT SCH (08:15)
[2019-11-06] MEDS: Metoprolol Tartrate 100mg tab GT SCH ×2 (08:15→20:47)
[2019-11-06] MEDS: Zinc Oxide Oint 2oz TOPIC SCH ×2 (08:17→20:49)
[2019-11-06] MEDS: Heparin 5000 units/ml inj SUBQ SCH ×2 (08:17→20:48)
--- NOTE | 2019-11-06 10:27 | Pulmonology Progress Note ---
Subjective ROS Limited/Unobtainable: Yes Constitutional: Denies: fever Gastrointestinal/Abdominal: Reports: diarrhea Allergies: Coded Allergies: No Known Allergies (Unverified , 06/10/19) All Systems: reviewed and negative except above Objective Last 24 Hour Vital Signs Date Time Temp Pulse Resp B/P (MAP) Pulse Ox O2 Delivery O2 Flow Rate FiO2 11/06/19 08:15 106 134/74 11/06/19 08:15 134/74 11/06/19 08:00 97.1 106 18 134/74 (94) 100 11/06/19 07:22 81 13 24 11/06/19 05:45 98.1 11/06/19 05:13 98.1 11/06/19 04:30 100.4 11/06/19 04:00 24 11/06/19 04:00 Mechanical Ventilator 11/06/19 04:00 106 11/06/19 04:00 99.0 100 16 134/70 (91) 100 11/06/19 02:45 96 18 24 11/06/19 00:00 98.7 100 16 114/59 (77) 100 11/06/19 00:00 Mechanical Ventilator 11/06/19 00:00 109 11/05/19 22:33 109 16 24 11/05/19 21:00 100 110/50 11/05/19 20:00 98.9 90 18 110/50 (70) 100 11/05/19 20:00 24 11/05/19 20:00 Mechanical Ventilator 11/05/19 19:35 92 11/05/19 18:45 92 14 24 11/05/19 16:00 24 11/05/19 16:00 98.3 77 18 101/73 (82) 95 11/05/19 16:00 90 11/05/19 16:00 Mechanical Ventilator 11/05/19 15:10 91 16 24 11/05/19 12:00 24 11/05/19 12:00 98.4 99 17 93/52 (66) 97 99 11/05/19 12:00 Mechanical Ventilator 11/05/19 12:00 99 11/05/19 11:19 89 16 24 Intake and Output 11/05/19 11/06/19 19:00 07:00 Intake Total 450 ml 570 ml Output Total 30 ml 20 ml Balance 420 ml 550 ml Free Water 90 ml 120 ml Tube Feeding 360 ml 450 ml Stool Total 30 ml 20 ml Laboratory Tests 11/05/19 11:39: POC Whole Blood Glucose 132H 11/05/19 16:52: POC Whole Blood Glucose 144H 11/05/19 23:24: POC Whole Blood Glucose 176H 11/06/19 05:17: POC Whole Blood Glucose 198H Current Medications Medications (Trade) Dose Ordered Sig/Leonel Route PRN Reason Start Time Stop Time Status Last Admin Dose Admin Acetaminophen (Tylenol) 650 mg Q6H PRN GT Temp >100.5 10/21/19 20:45 11/20/19 20:44 11/06/19 04:43 Chlorhexidine Gluconate (Felipa-Hex 2%) 1 applic DAILY@1999 TOPIC 09/12/19 20:00 12/11/19 19:59 11/05/19 20:57 Clonidine HCl (Catapres Tab) 0.1 mg Q4H PRN GT For High Blood Pressure 09/09/19 12:30 12/08/19 05:29 09/15/19 04:10 Dextrose (Dextrose 50%) 25 ml Q30M PRN IV Hypoglycemia 08/09/19 07:30 11/07/19 07:29 Dextrose (Dextrose 50%) 50 ml Q30M PRN IV Hypoglycemia 08/09/19 07:30 11/07/19 07:29 Epoetin Andreas (Epoetin Andreas(ESRD on dialysis)) 8,000 unit WED-WED-WED SUBQ 10/25/19 21:00 01/23/20 20:59 11/03/19 21:48 Famotidine (Pepcid) 20 mg DAILY GT 08/30/19 09:00 11/28/19 08:59 11/06/19 08:16 Heparin Sodium (Porcine) (Heparin 5000 units/ml) 5,000 units EVERY 12 HOURS SUBQ 11/02/19 09:00 12/17/19 08:59 11/06/19 08:17 Insulin Aspart (NovoLOG) Q6HR SUBQ 09/25/19 18:00 11/07/19 11:29 11/06/19 05:24 Lactobacillus Acidophilus (Culturelle) 1 tab EVERY 12 HOURS GT 10/03/19 21:00 12/13/19 17:59 11/06/19 08:15 Loperamide HCl (Imodium) 2 mg Q6H PRN NG Diarrhea 10/15/19 07:45 11/14/19 07:44 Metoprolol Tartrate (Lopressor) 200 mg Q12HR GT 08/09/19 09:00 11/07/19 08:59 11/06/19 08:15 Minoxidil (Loniten) 5 mg DAILY GT 08/09/19 09:00 11/07/19 08:59 11/06/19 08:15 Sodium Chloride 500 ml @ 999 mls/hr Q31M PRN IV sbp<90 10/28/19 21:30 11/27/19 21:29 Zinc Oxide (Zinc Oxide) 1 applic EVERY 12 HOURS TOPIC 10/03/19 09:00 11/08/19 17:59 11/06/19 08:17 Assessment/Plan Assessment/Plan Pulmonary Progress Note Assessment/Plan: IMPRESSION: 1. anemia. 2. fevers improved 3. Leukocytosis. 4. hypotension 5. Acute on chronic renal failure. 6. Hyponatremia. 7. Severe protein-calorie malnutrition. 8. Significantly elevated C-reactive protein concerning for infectious etiology. 9. Tracheostomy, G-tube. 10. Ventilator dependence. 11. anasarca 12. Hematuria 13. V pacing 14. hyponatremia 15. transaminitis, HIDA negative PLAN monitor vitals; cards following and control HR antibiotics per ID chronic care; unable to place care noted on vent/ no wean monitor labs and optimize ID follow up - wbc now worse dialysis ongoing- adjust lytes prognosis poor for recovery impression, plan, and exam edited and reviewed in detail care discussed with RN Subjective ROS Limited/Unobtainable: Yes Allergies: Coded Allergies: No Known Allergies (Unverified , 06/10/19) Subjective stable on vent Objective Vital Signs Noted Height (Feet): 5 Height (Inches): 10.00 Weight (Pounds): 155 Objective GENERAL: Ill-appearing male, chronically debilitated. HEENT: Tracheostomy in midline. Questionable fullness in the submandibular region. LUNGS: Coarse breath sounds. reduced breath sounds CARDIAC: S1, S2. Regular rate and rhythm. ABDOMEN: Soft. G-tube. EXTREMITIES: With noted edema. NEUROLOGICAL: Poorly responsive, weak diffusely. Laboratory Tests noted CXR: Stable Kenny Mccurdy MD Nov 06, 2019 10:27
[2019-11-06 11:18] LABS: BASOPHILS % (AUTO) 1.4 % (0.0-2.0); EOSINOPHILS % (AUTO) 6.3 % (0.0-3.0); HEMATOCRIT 31.8 % (42.0-52.0); HEMOGLOBIN 9.6 G/DL (14.2-18.0); LYMPHOCYTES % (AUTO) 13.5 % (20.0-45.0); MEAN CORPUSCULAR VOLUME 75 FL (80-99); MONOCYTES % (AUTO) 8.9 % (1.0-10.0); NEUTROPHILS % (AUTO) 69.9 % (45.0-75.0); PLATELET COUNT 624 K/UL (150-450); RED BLOOD COUNT 4.25 M/UL (4.70-6.10); RED CELL DISTRIBUTION WIDTH 18.4 % (11.6-14.8)
[2019-11-06 11:25] LABS: CALCIUM 9.7 MG/DL (8.5-10.1); CREATININE 3.6 MG/DL (0.55-1.30); POTASSIUM 4.3 MMOL/L (3.5-5.1)
--- NOTE | 2019-11-06 11:29 | Infectious Diseases Prog Note ---
"Assessment/Plan Assessment/Plan antibiotics : none A 1. morganella | klebsiella pneumonia s/p rx 2. respiratory failure 3. leucocytosis 4. COVID 19 test negative x 2 5. renal failure on HD P 1. continue off antibiotics 2. will follow up cultures Subjective ROS Limited/Unobtainable: Yes Allergies: Coded Allergies: No Known Allergies (Unverified , 06/10/19) Objective Last 24 Hour Vital Signs Date Time Temp Pulse Resp B/P (MAP) Pulse Ox O2 Delivery O2 Flow Rate FiO2 11/06/19 11:07 82 16 24 11/06/19 08:15 106 134/74 11/06/19 08:15 134/74 11/06/19 08:00 97.1 106 18 134/74 (94) 100 11/06/19 07:22 81 13 24 11/06/19 05:45 98.1 11/06/19 05:13 98.1 11/06/19 04:30 100.4 11/06/19 04:00 24 11/06/19 04:00 Mechanical Ventilator 11/06/19 04:00 106 11/06/19 04:00 99.0 100 16 134/70 (91) 100 11/06/19 02:45 96 18 24 11/06/19 00:00 98.7 100 16 114/59 (77) 100 11/06/19 00:00 Mechanical Ventilator 11/06/19 00:00 109 11/05/19 22:33 109 16 24 11/05/19 21:00 100 110/50 11/05/19 20:00 98.9 90 18 110/50 (70) 100 11/05/19 20:00 24 11/05/19 20:00 Mechanical Ventilator 11/05/19 19:35 92 11/05/19 18:45 92 14 24 11/05/19 16:00 24 11/05/19 16:00 98.3 77 18 101/73 (82) 95 11/05/19 16:00 90 11/05/19 16:00 Mechanical Ventilator 11/05/19 15:10 91 16 24 11/05/19 12:00 24 11/05/19 12:00 98.4 99 17 93/52 (66) 97 99 11/05/19 12:00 Mechanical Ventilator 11/05/19 12:00 99 Height (Feet): 5 Height (Inches): 10.00 Weight (Pounds): 123 HEENT: status post trach Respiratory/Chest: lungs clear Cardiovascular: normal rate, regular rhythm, no gallop/murmur Abdomen: soft, non tender, other - GT Extremities: no edema, other - right subclavian catheter Laboratory Tests Test 11/05/19 11:39 11/05/19 16:52 11/05/19 23:24 11/06/19 05:17 POC Whole Blood Glucose 132 MG/DL (74-106) H 144 MG/DL (74-106) H 176 MG/DL (74-106) H 198 MG/DL (74-106) H Test 11/06/19 10:50 White Blood Count 17.0 K/UL (4.8-10.8) H Red Blood Count 4.25 M/UL (4.70-6.10) L Hemoglobin 9.6 G/DL (14.2-18.0) L Hematocrit 31.8 % (42.0-52.0) L Mean Corpuscular Volume 75 FL (80-99) L Mean Corpuscular Hemoglobin 22.7 PG (27.0-31.0) L Mean Corpuscular Hemoglobin Concent 30.2 G/DL (32.0-36.0) L Red Cell Distribution Width 18.4 % (11.6-14.8) H Platelet Count 624 K/UL (150-450) H Mean Platelet Volume 5.8 FL (6.5-10.1) L Neutrophils (%) (Auto) 69.9 % (45.0-75.0) Lymphocytes (%) (Auto) 13.5 % (20.0-45.0) L Monocytes (%) (Auto) 8.9 % (1.0-10.0) Eosinophils (%) (Auto) 6.3 % (0.0-3.0) H Basophils (%) (Auto) 1.4 % (0.0-2.0) Sodium Level 132 MMOL/L (136-145) L Potassium Level 4.3 MMOL/L (3.5-5.1) Chloride Level 96 MMOL/L (98-107) L Carbon Dioxide Level 25 MMOL/L (21-32) Anion Gap 11 mmol/L (5-15) Blood Urea Nitrogen 62 mg/dL (7-18) H Creatinine 3.6 MG/DL (0.55-1.30) H Estimat Glomerular Filtration Rate 16.5 mL/min (>60) Glucose Level 125 MG/DL (74-106) H Calcium Level 9.7 MG/DL (8.5-10.1) Current Medications Medications (Trade) Dose Ordered Sig/Leonel Route PRN Reason Start Time Stop Time Status Last Admin Dose Admin Acetaminophen (Tylenol) 650 mg Q6H PRN GT Temp >100.5 10/21/19 20:45 11/20/19 20:44 11/06/19 04:43 Chlorhexidine Gluconate (Felipa-Hex 2%) 1 applic DAILY@1999 TOPIC 09/12/19 20:00 12/11/19 19:59 11/05/19 20:57 Clonidine HCl (Catapres Tab) 0.1 mg Q4H PRN GT For High Blood Pressure 09/09/19 12:30 12/08/19 05:29 09/15/19 04:10 Dextrose (Dextrose 50%) 25 ml Q30M PRN IV Hypoglycemia 08/09/19 07:30 11/07/19 07:29 Dextrose (Dextrose 50%) 50 ml Q30M PRN IV Hypoglycemia 08/09/19 07:30 11/07/19 07:29 Epoetin Andreas (Epoetin Andreas(ESRD on dialysis)) 8,000 unit WED-WED-WED SUBQ 10/25/19 21:00 01/23/20 20:59 11/03/19 21:48 Famotidine (Pepcid) 20 mg DAILY GT 08/30/19 09:00 11/28/19 08:59 11/06/19 08:16 Heparin Sodium (Porcine) (Heparin 5000 units/ml) 5,000 units EVERY 12 HOURS SUBQ 11/02/19 09:00 12/17/19 08:59 11/06/19 08:17 Insulin Aspart (NovoLOG) Q6HR SUBQ 09/25/19 18:00 11/07/19 11:29 11/06/19 05:24 Lactobacillus Acidophilus (Culturelle) 1 tab EVERY 12 HOURS GT 10/03/19 21:00 12/13/19 17:59 11/06/19 08:15 Loperamide HCl (Imodium) 2 mg Q6H PRN NG Diarrhea 10/15/19 07:45 11/14/19 07:44 Metoprolol Tartrate (Lopressor) 200 mg Q12HR GT 08/09/19 09:00 11/07/19 08:59 11/06/19 08:15 Minoxidil (Loniten) 5 mg DAILY GT 08/09/19 09:00 11/07/19 08:59 11/06/19 08:15 Sodium Chloride 500 ml @ 999 mls/hr Q31M PRN IV sbp<90 10/28/19 21:30 11/27/19 21:29 Zinc Oxide (Zinc Oxide) 1 applic EVERY 12 HOURS TOPIC 10/03/19 09:00 11/08/19 17:59 11/06/19 08:17 Farnaz Lyle MD Nov 06, 2019 11:29"
[2019-11-06 12:00] VITALS: BP 125/51
--- NOTE | 2019-11-06 12:57 | Nephrology Progress Note ---
Assessment/Plan Assessment 1.ESRD 2.ANEMIA OF CKD 3.HELENA 4.FAILURE TO THRIVE Plan dialysis as schedule monitoring phos,PTH Continue epogen nutritional support Subjective ROS Limited/Unobtainable: Yes Subjective no acute events Objective Objective Last 24 Hour Vital Signs Date Time Temp Pulse Resp B/P (MAP) Pulse Ox O2 Delivery O2 Flow Rate FiO2 11/06/19 12:00 24 11/06/19 11:07 82 16 24 11/06/19 08:15 106 134/74 11/06/19 08:15 134/74 11/06/19 08:00 97.1 106 18 134/74 (94) 100 11/06/19 08:00 93 11/06/19 08:00 Mechanical Ventilator 11/06/19 08:00 24 11/06/19 07:22 81 13 24 11/06/19 05:45 98.1 11/06/19 05:13 98.1 11/06/19 04:30 100.4 11/06/19 04:00 24 11/06/19 04:00 Mechanical Ventilator 11/06/19 04:00 106 11/06/19 04:00 99.0 100 16 134/70 (91) 100 11/06/19 02:45 96 18 24 11/06/19 00:00 98.7 100 16 114/59 (77) 100 11/06/19 00:00 Mechanical Ventilator 11/06/19 00:00 109 11/05/19 22:33 109 16 24 11/05/19 21:00 100 110/50 11/05/19 20:00 98.9 90 18 110/50 (70) 100 11/05/19 20:00 24 11/05/19 20:00 Mechanical Ventilator 11/05/19 19:35 92 11/05/19 18:45 92 14 24 11/05/19 16:00 24 11/05/19 16:00 98.3 77 18 101/73 (82) 95 11/05/19 16:00 90 11/05/19 16:00 Mechanical Ventilator 11/05/19 15:10 91 16 24 Intake and Output 11/05/19 11/06/19 19:00 07:00 Intake Total 450 ml 570 ml Output Total 30 ml 20 ml Balance 420 ml 550 ml Free Water 90 ml 120 ml Tube Feeding 360 ml 450 ml Stool Total 30 ml 20 ml Laboratory Tests 11/05/19 16:52: POC Whole Blood Glucose 144H 11/05/19 23:24: POC Whole Blood Glucose 176H 11/06/19 05:17: POC Whole Blood Glucose 198H 11/06/19 10:50: White Blood Count 17.0H, Red Blood Count 4.25L, Hemoglobin 9.6L, Hematocrit 31.8L, Mean Corpuscular Volume 75L, Mean Corpuscular Hemoglobin 22.7L, Mean Corpuscular Hemoglobin Concent 30.2L, Red Cell Distribution Width 18.4H, Platelet Count 624H, Mean Platelet Volume 5.8L, Neutrophils (%) (Auto) 69.9, Lymphocytes (%) (Auto) 13.5L, Monocytes (%) (Auto) 8.9, Eosinophils (%) (Auto) 6.3H, Basophils (%) (Auto) 1.4, Sodium Level 132L, Potassium Level 4.3, Chloride Level 96L, Carbon Dioxide Level 25, Anion Gap 11, Blood Urea Nitrogen 62H, Creatinine 3.6H, Estimat Glomerular Filtration Rate 16.5, Glucose Level 125H, Calcium Level 9.7 11/06/19 12:45: POC Whole Blood Glucose 131H Height (Feet): 5 Height (Inches): 10.00 Weight (Pounds): 123 Objective General Appearance: nad, Chronically Ill Head: normocephalic Eyes: right eye PERRL - Will not open left eye ENT: moist mucus membranes Neck: other - submandibular mass R, fairly rigid with resistance to rotation to L, tracheotomy Respiratory: decreased breath sounds, crackles, other - pacemaker, vent+ Cardiovascular: regular rate, rhythm, edema - anasarca Gastrointestinal: non tender, distended, other - G tube Genitourinary: other Musculoskeletal: other - Contractures all extremities Ariella Hutchinson MD Nov 06, 2019 12:57
--- NOTE | 2019-11-06 13:33 | NUR ---
CASE MANAGEMENT: REVIEW SI: FAILURE TO THRIVE . ESRD on HD . ANEMIA T 100.4 HR 106 RR 18 BP 134/74 SAT 100% MECH VENT FIO2 24 WBC 17.0 H/H 9.6/31.8 NA 132 BUN 62 CR 3.6 IS: EPOETIN SUBQ MWF HEPARIN SUBQ Q12HR STEP DOWN UNIT STATUS DCP: PLACEMENT PENDING. HEALTH PLAN ASSISTING WITH PLACEMENT
[2019-11-06 16:00] VITALS: BP 122/75
--- NOTE | 2019-11-06 19:23 | NUR ---
NURSE HAND-OFF REPORT: Important Events on Shift: NA Patient Status: stable Diet: Nephro @ 45ml/h Pending Orders: na Pending Results/Labs:na Pending MD notification:na Latest Vital Signs: Temperature 98.6 , Pulse 98 , B/P 122 /75 , Respiratory Rate 16 , O2 SAT 99 , Mechanical Ventilator, O2 Flow Rate 15.0 . Vital Sign Comment: na EKG Rhythm: V-Paced Rhythm change?: N MD Notified?: N - MD Response: Latest Delacruz Fall Score: 70 Fall Risk: High Risk Safety Measures: Call light Within Reach, Bed Alarm Zone 2, Side Rails Side Rails x3, Bed position Low and Locked. Fall Precautions: Yellow Socks Yellow Gown Patient Fall Education Report given to TAMICA Lorenzo.
--- NOTE | 2019-11-06 19:24 | NUR ---
"NURSE NOTES: Pt A/Ox0 upon assessment. PERRLA. Unable to make needs known. EKG shows SR. On vent: A/C 12 | Vt 550 | 24% saturating 100%. G-tube patent and intact running Nepro at 45 cc. Abdomen is round, large, nontender. 0 residual noted. Left hand and TERRENCE permacath patent. 0 residual noted in rectal tube. No bleeding noted. Made aware of alterations in skin integrity. Bed in lowest and locked position. Will continue monitoring."
[2019-11-06 20:00] VITALS: BP 131/82
[2019-11-06] MEDS: Dyna-Hex 2% Top Sol 2oz TOPIC SCH (20:46)
[2019-11-06] MEDS: Epoetin Alfa-EPBX(ESRD on dialysis)4000 units/ml vial SUBQ SCH (20:47)
--- NOTE | 2019-11-06 20:49 | General Progress Note ---
Subjective Allergies: Coded Allergies: No Known Allergies (Unverified , 06/10/19) Subjective above noted NAD on TF non communicative Objective Last 24 Hour Vital Signs Date Time Temp Pulse Resp B/P (MAP) Pulse Ox O2 Delivery O2 Flow Rate FiO2 11/06/19 19:38 107 17 24 11/06/19 16:00 Mechanical Ventilator 11/06/19 16:00 24 11/06/19 16:00 98 11/06/19 16:00 98.6 106 16 122/75 (91) 99 11/06/19 15:14 100 16 24 11/06/19 12:00 24 11/06/19 12:00 83 11/06/19 12:00 98.2 85 18 125/51 (75) 100 11/06/19 12:00 Mechanical Ventilator 11/06/19 11:07 82 16 24 11/06/19 08:15 106 134/74 11/06/19 08:15 134/74 11/06/19 08:00 97.1 106 18 134/74 (94) 100 11/06/19 08:00 93 11/06/19 08:00 Mechanical Ventilator 11/06/19 08:00 24 11/06/19 07:22 81 13 24 11/06/19 05:45 98.1 11/06/19 05:13 98.1 11/06/19 04:30 100.4 11/06/19 04:00 24 11/06/19 04:00 Mechanical Ventilator 11/06/19 04:00 106 11/06/19 04:00 99.0 100 16 134/70 (91) 100 11/06/19 02:45 96 18 24 11/06/19 00:00 98.7 100 16 114/59 (77) 100 11/06/19 00:00 Mechanical Ventilator 11/06/19 00:00 109 11/05/19 22:33 109 16 24 11/05/19 21:00 100 110/50 Intake and Output 11/05/19 11/06/19 19:00 07:00 Intake Total 450 ml 570 ml Output Total 30 ml 20 ml Balance 420 ml 550 ml Free Water 90 ml 120 ml Tube Feeding 360 ml 450 ml Stool Total 30 ml 20 ml Laboratory Tests 11/05/19 23:24: POC Whole Blood Glucose 176H 11/06/19 05:17: POC Whole Blood Glucose 198H 11/06/19 10:50: White Blood Count 17.0H, Red Blood Count 4.25L, Hemoglobin 9.6L, Hematocrit 31.8L, Mean Corpuscular Volume 75L, Mean Corpuscular Hemoglobin 22.7L, Mean Corpuscular Hemoglobin Concent 30.2L, Red Cell Distribution Width 18.4H, Platelet Count 624H, Mean Platelet Volume 5.8L, Neutrophils (%) (Auto) 69.9, Lymphocytes (%) (Auto) 13.5L, Monocytes (%) (Auto) 8.9, Eosinophils (%) (Auto) 6.3H, Basophils (%) (Auto) 1.4, Sodium Level 132L, Potassium Level 4.3, Chloride Level 96L, Carbon Dioxide Level 25, Anion Gap 11, Blood Urea Nitrogen 62H, Creatinine 3.6H, Estimat Glomerular Filtration Rate 16.5, Glucose Level 125H, Calcium Level 9.7 11/06/19 12:45: POC Whole Blood Glucose 131H 11/06/19 17:20: POC Whole Blood Glucose [Pending] Height (Feet): 5 Height (Inches): 10.00 Weight (Pounds): 123 Objective Debilitated AA man NCAT (+) trach coarse BS RR abd less distended, anasarca, (+) GT, (+) rectal tube ext contracted Assessment/Plan Assessment/Plan: Assessment - abdominal distention, due to colonic dysmotility, - colonoscopy negative to hepatic flexure - diarrhea - presumed TF related - abnormal LFT - ? etiology --> HIDA negative and CT negative - Anemia - leukocytosis - stool OB (+) - EGD --> gastritis - Renal failure - Anasarca - resp failure, trach - b/l pleural effusions - dysphagia, GT - encephalopathy, contracted - poor px Recommendations - continue TF - check hepatitis markers - negative - rectal tube - roll side to side as feasible (hard due to severe contractions) - Elevate HOB - f/u labs - PPI - abx - supportive care Ronny Mustafa MD Nov 06, 2019 20:49
--- NOTE | 2019-11-06 21:04 | Surgery Progress Note ---
Surgery Progress Note Subjective Procedure Performed Right femoral temporary hemodialysis catheter removal Additional Comments no acute events Objective Last 24 Hour Vital Signs Date Time Temp Pulse Resp B/P (MAP) Pulse Ox O2 Delivery O2 Flow Rate FiO2 11/06/19 20:47 103 131/82 11/06/19 20:00 98.8 106 14 131/82 (98) 100 11/06/19 19:38 107 17 24 11/06/19 16:00 Mechanical Ventilator 11/06/19 16:00 24 11/06/19 16:00 98 11/06/19 16:00 98.6 106 16 122/75 (91) 99 11/06/19 15:14 100 16 24 11/06/19 12:00 24 11/06/19 12:00 83 11/06/19 12:00 98.2 85 18 125/51 (75) 100 11/06/19 12:00 Mechanical Ventilator 11/06/19 11:07 82 16 24 11/06/19 08:15 106 134/74 11/06/19 08:15 134/74 11/06/19 08:00 97.1 106 18 134/74 (94) 100 11/06/19 08:00 93 11/06/19 08:00 Mechanical Ventilator 11/06/19 08:00 24 11/06/19 07:22 81 13 24 11/06/19 05:45 98.1 11/06/19 05:13 98.1 11/06/19 04:30 100.4 11/06/19 04:00 24 11/06/19 04:00 Mechanical Ventilator 11/06/19 04:00 106 11/06/19 04:00 99.0 100 16 134/70 (91) 100 11/06/19 02:45 96 18 24 11/06/19 00:00 98.7 100 16 114/59 (77) 100 11/06/19 00:00 Mechanical Ventilator 11/06/19 00:00 109 11/05/19 22:33 109 16 24 I&O Intake and Output 0 11/05/19 11/06/19 19:00 07:00 Intake Total 450 ml 570 ml Output Total 30 ml 20 ml Balance 420 ml 550 ml Free Water 90 ml 120 ml Tube Feeding 360 ml 450 ml Stool Total 30 ml 20 ml Cardiovascular: RSR Respiratory: decreased breath sounds Abdomen: non-tender, present bowel sounds Extremities: no tenderness, no cyanosis Laboratory Tests Test 11/05/19 23:24 11/06/19 05:17 11/06/19 10:50 11/06/19 12:45 POC Whole Blood Glucose 176 MG/DL (74-106) H 198 MG/DL (74-106) H 131 MG/DL (74-106) H White Blood Count 17.0 K/UL (4.8-10.8) H Red Blood Count 4.25 M/UL (4.70-6.10) L Hemoglobin 9.6 G/DL (14.2-18.0) L Hematocrit 31.8 % (42.0-52.0) L Mean Corpuscular Volume 75 FL (80-99) L Mean Corpuscular Hemoglobin 22.7 PG (27.0-31.0) L Mean Corpuscular Hemoglobin Concent 30.2 G/DL (32.0-36.0) L Red Cell Distribution Width 18.4 % (11.6-14.8) H Platelet Count 624 K/UL (150-450) H Mean Platelet Volume 5.8 FL (6.5-10.1) L Neutrophils (%) (Auto) 69.9 % (45.0-75.0) Lymphocytes (%) (Auto) 13.5 % (20.0-45.0) L Monocytes (%) (Auto) 8.9 % (1.0-10.0) Eosinophils (%) (Auto) 6.3 % (0.0-3.0) H Basophils (%) (Auto) 1.4 % (0.0-2.0) Sodium Level 132 MMOL/L (136-145) L Potassium Level 4.3 MMOL/L (3.5-5.1) Chloride Level 96 MMOL/L (98-107) L Carbon Dioxide Level 25 MMOL/L (21-32) Anion Gap 11 mmol/L (5-15) Blood Urea Nitrogen 62 mg/dL (7-18) H Creatinine 3.6 MG/DL (0.55-1.30) H Estimat Glomerular Filtration Rate 16.5 mL/min (>60) Glucose Level 125 MG/DL (74-106) H Calcium Level 9.7 MG/DL (8.5-10.1) Test 11/06/19 17:20 POC Whole Blood Glucose Pending Plan Problems: (1) Anemia (2) Hyponatremia (3) Leukocytosis Assessment & Plan: Tracheostomy, left chest pacemaker are again demonstrated. There is bilateral interstitial and airspace disease and bilateral pleural fluid again demonstrated. This appears more severe than on the prior study. Bilateral interstitial and airspace infiltrates versus edema. Bilateral pleural effusions Leukocytosis, anemia, tachycardia, abnormal labs. Wound evaluated and likely etiology of patient's sepsis. Leukocytosis etiology work-up antibiotics per infectious disease Appreciate nephrology input transfuse with dialysis We will follow with recommendations thank you allowing participation's care plan HD access temp HD discussed with medical teams line okay HD as per renal persistent leukocytosis flow cyto noted improving trending down right fem line removed wbc fluctuating h/h stable lft's elevated There is a right pleural effusion Gallbladder demonstrates tiny wall adherent nonmobile echogenic foci, some possible mural calcifications, and comet tail artifact in the anterior wall. Patient unable to report sonographic Kent's sign. Common bile duct measures 4 mm in diameter. No intrahepatic biliary ductal dilatation. Liver demonstrates normal echogenicity, no focal abnormality. There is some surface nodularity. Portal vein and hepatic veins are patent. Pancreas is incompletely visualized due to overlying bowel gas, visualized portions are unremarkable. Spleen is unremarkable. Left kidney measures 8.7 cm in length. Right kidney measures 8.9 cm length. Both kidneys demonstrate increased echogenicity. There is no hydronephrosis. No focal abnormality . Abdominal aorta is partially obscured by bowel gas, visualized portions are non-aneurysmal . A gastrostomy is noted Impression: Tiny wall adherent nonmobile gallbladder echogenic foci, may reflect wall adherent calculi, small polyps, and/or pleural calcifications. Anterior wall comet tail artifact suggests foci of adenomyomatosis. Normal caliber common bile duct Possible hepatic surface nodularity, could indicate cirrhotic change Echogenic kidneys, consistent with medical renal disease. No hydronephrosis Right pleural effusion Gastrostomy Note nonvisualization of portions of the pancreas and abdominal aorta HIDA NEGATIVE trend labs (4) Ventilator dependent (5) Right lower lobe pneumonia (6) Hypokalemia (7) Hyperkalemia (8) Anasarca (9) Decubitus skin ulcer Assessment & Plan: pt presented on admission with generalized edemae.Skin assessed under tracheostomy and no areas of concerns noted. GT Insertion is marginally erythematous with small amt slough at stoma. Unstageable Pressure Injury R elbow. Base of wound is 100% yellow slough,Borders are erythematous. Wound oozing small amt haemopurulent exudate.Darker skin tone without elevation in skin temp or erythema periwound. Pt's penis and scrotum are grossly edematous and enlarged and weeping serous exudate from numerous sites both from penis and scrotum. Two small open wounds noted at base of at base of shaft of penis ,and contreras aspect of scrotum. Both wounds oozing large amt sanguineous and serosanguineous exudate. Multiple open wounds with Biofilm at base of each wounds noted to contreras/lateral,inferior and posterior aspects of scrotum. These wounds noted to be oozing moderate amts of serosanguineous exudate. Hypertrophic scar with scattered areas of hyperpigmentation noted to Sacrum. DTPI noted to L Buttocks (L)7cm x (W)9cm. Base of wound is purple and indurated.Darker skin tone without erythema,induration or fluctuance R and L ischial tuberosities. Both heels are boggy with non-blanchable erythema. potential decline given chronic illness Tx.Plan: Cleanse wound R elbow with Saline. Apply TheraHoney, Apply Moisture Barrier Paste periwound. Cover with Optifoam drsg.Change Daily and prn. Wash GT site with soap and water.Pat dry. Apply Zinc Oxide Paste to GT site Daily. Leave Open to Air. Apply Zinc Oxide Paste to entire Scrotum, Place ABD pads to R and L lateral, and posterior aspects of scrotum TWICE daily. Apply Cavilon Skin Barrier to malleoli and both Heels. Cover each site with Optifoam drsgs. Change every 7 days and prn. Reposition at least every 2hours or as tolerated. Off-load heels with Pillows. APM/BECCA Mattress overlay. (10) Malnutrition Assessment & Plan: DAILY ESTIMATED NEEDS: Needs based on Renal, critical care, wound/ 61kg 22-30 kcals/kg [id number] total kcals 1.25-2 g protein/kg 76-122 g total protein Fluid per MD, now on HD NUTRITION DIAGNOSIS: * Swallowing difficulty R/T respiratory failure, dysphagia as evidenced by trach/vent dep, PEG dep * Increased kcal/prot needs R/T wound healing as evidenced by admitted w/ multiple pressure injuries including full thickness wounds at junction of Shaft of penis, dorsal scrotum, R elbow, and DTPI @ L buttocks. CURRENT TF:Osmolite 1.2 @ 60ml/hr x 20 hrs + Garo BID ENTERAL NUTRITION RECOMMENDATIONS: Vital AF 1.2 @ 60ml/hr x 20 hrs to provide 1200ml, 1440kcal, 90g prot, 973ml free water * Rec 20 hr run time for GI rest. -> W/ improved GI status, rec Vital AF 1.2, an elemental and carb controlled TF -> monitor lytes and renal fxn closely, monitor need for renal TF -> TF @ goal will provide 1642mg K and 2025mg Phos -> HOB over 30 degrees/ water flush per -------- Trial of Osmolite 1.2 continue for now- Goal of 60ml/hr for 20 hrs (4 hrs bowel rest) to provide 1200ml, 1440 kcal, 67g pro, 984ml free H2O, -> Rec to add prosource 1 pack daily (11g pro) to better meet est pro needs. -> Monitor BG, K closely. Pt would require increased insulin coverage as TF at goal would provide 56g more carbs per day. ADDITIONAL RECOMMENDATIONS: * Per SNF: HT=63" ZH=207 lbs (vs EMR wt of 166lbs) -> obtain re-calibrated bedscale wt, rec daily wt monitoring * Wound healing: con't Nephrovite + Garo BID/ Vit C dosing per Nephro * Monitor renal fxn and lytes closely w/ non-renal TF ->K low, phos wnl;updated mag level; rec increased insulin w/ BG labs * Daily wts w/ drop to 118-20 lbs, rec to recalibrate for accurate CBW * Consider DC Miralax if medically appropriate: +rectal tube (11) Uremia (12) CKD (chronic kidney disease) stage 5, GFR less than 15 ml/min (13) Colon distention Assessment & Plan: discussed with GI likely functional as having lots of loose bm rectal tube kub f/u s/p colonoscopy - findings reviewed with GI improved cont diet as tolerated repeat KUB Marked distention of the sigmoid colon. 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 No evidence of bowel wall thickening or pneumatosis 12 mm focus of contrast enhancement in the right pectineus muscle. While nonspecific in appearance, appearance raises concern for a possible pseudoaneurysm. Ill- defined thickening of the pectus medius muscle could indicate some intramuscular hemorrhage. The above findings were phoned to Dr. Urias at the time of interpretation Large bilateral pleural effusions Hazy pulmonary parenchymal opacities as well as dense consolidative opacities most likely represent pulmonary edema, but could represent pneumonia Evidence of anasarca elsewhere, with generalized edema of the subcutaneous fat Bladder wall thickening, raises concern for cystitis. Avalos catheter in place Colonic diverticulosis. No evidence of diverticulitis. Tracheostomy Pacemaker Gastrostomy Gastrostomy again demonstrated in satisfactory position. The stomach is otherwise unremarkable. The distal esophagus and duodenum are unremarkable. Ingested contrast reaches the colon. No small bowel distention or small bowel wall thickening. Interim placement of a rectal tube. There are a few colonic diverticula. No definite evidence of acute diverticulitis. The appendix is prominent in caliber, as previously No free or loculated intraperitoneal gas or fluid is evident. Again demonstrated is marked gaseous distention of the sigmoid colon which measures up to 12.6 cm in diameter, with the proximal aspect located laterally to the distal aspect, and caliber transition in the mesenteric root of both entry points. However, there is stool within the proximal portion which appears to be at least partially contrast opacified, and no definite persisting of the vascular pedicle demonstrated. The liver, gallbladder, bile ducts, pancreas, spleen, adrenals, kidneys are unremarkable. There are accessory splenules demonstrated. No retroperitoneal or mesenteric mass or adenopathy. No pelvic mass or adenopathy. The prostate is enlarged and protrudes into the inferior bladder. The bladder is thick-walled. Previously demonstrated Avalos catheter has been removed. Again demonstrated is a large right pleural effusion and a moderate to large left pleural effusion. Again demonstrated are compressive atelectatic changes of significant portions of both lower lobes. Pacemaker wires are seen within the heart. Previously demonstrated high attenuation focus within the right pectineus muscle is not evident. However, there is a low-attenuation area which measures 2 cm diameter centrally which is not evident previously. There is diffuse edema of the subcutaneous fat. This is less severe than was demonstrated previously. There are degenerative proliferative changes of the lumbar spine. Impression: Abnormal configuration of the sigmoid colon, with marked distention of a sigmoid, inversion of the relationships of the proximal and descending colon, and evidence of immediately apposed transition point raises concern for sigmoid volvulus. However, similarity to the prior exam, presence of what appears to be contrast opacified stool within the dilated segment, and lack of evidence of twisting of the vascular pedicle raises the possibility that this is baseline for this patient or possibly dysfunctional in nature. Correlate with clinical findings Enlarged prostate with protrusion into the bladder floor. Bladder neoplasm not completely excludable as a result Thick-walled bladder, may indicate cystitis or be due to chronic bladder lumen obstruction related to the above Abnormalities right pectineus muscle, with a 2 cm central low attenuation area. Note that previous exam have a high attenuation focus suspicious for a small pseudoaneurysm. 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 Colonic diverticulosis. No evidence of diverticulitis Gastrostomy in good position Rectal tube in good position Large right and moderate to large left pleural effusions. Resultant compressive pulmonary atelectatic changes or graft edema subcutaneous fat, less severe than was demonstrated on prior 08/17/2019 exam. Jonathan Urias Nov 06, 2019 21:04
[2019-11-07] VITALS: BP 121/76
--- NOTE | 2019-11-07 03:00 | NUR ---
NURSE NOTES: Pt in stable condition. No output noted on rectal tube. Afebrile. Will monitor.
[2019-11-07 04:00] VITALS: BP 116/64
[2019-11-07] MEDS: NovoLOG Insulin Flexpen SUBQ SCH ×2 (05:01→23:58)
--- NOTE | 2019-11-07 06:43 | Hematology/Onc Progress Note ---
Assessment/Plan Assessment/Plan Assessment/recs # Anemia due to chronic disease/kidney disease as well, gi bleed + occult + noted --> was on iron in the past, now on hold --> has been started on Epogen sq --> as per renal care --> egd done and shows gastritis --> on ppi --> egd showed gastritis, colo recently done --> hgb 9-->8. 7-->7.6-->9.2-->8.9-->9.2->9.3-->8.8->9.9-->9.2-->8.1-->8.7-->7.9-->8.6-->8.9--> 8.2->9-->9.3->8.9-->9.5-->10.6->9.2-->10->8.9--> 8.3-->8.9-->9.9-->9.3-->9-->9.3->11-->8.6->8.7>9-->8.4-->9.1 --> spep ordered->wnl # Leukocytosis - with multiple infections, VRE UTI, flow is negative --> wbc trend 33-->28-->25->23->22->23->24->17.3-->17-->14->16-->15.6-->14-->14->13 ->19->18->17->22->22->19->17-->18->20-->15-->14->16-->14-->17->18-->17->15-->16- ->17->28->19-->21-->19-->23->15 --> on abx, linezolid and zosyn--> zosyn-->gent-->off-->vanc/zosyn-->cefepime/colistin --> + blood cultures with coag neg staph likely contaminated --> as per id recs --> has ordered a flow cytometry (with pathology) --> does show increased nK cell activity --> JOURDAN 2 and bcr-abl labs ordered (these are send outs)->negative --> plt 585-->613-->649-->669->663-->529-->506-->620-->720 # Elevated ddimer on admission --> duplex lower legs neg for dvt # Respiratory failure --> per pulm, s/p trach --> COVID 19 test negative x 2 # Hyperlipidemia --> statin po # Dysphagia s/p gtube with nepro --> per gi # ESRD with r fem julito --> hd as per renal # Dvt ppx heparin sq Appreciate consultation and dw Rn Subjective HEENT: Denies: no symptoms, eye pain, blurred vision, tearing, double vision, ear pain, ear discharge, nose pain, nose congestion, throat pain, throat swelling, mouth pain, mouth swelling, other Cardiovascular: Denies: no symptoms, chest pain, edema, irregular heart rate, lightheadedness, palpitations, syncope, other Respiratory: Denies: no symptoms, cough, shortness of breath, SOB with excertion, SOB at rest, sputum, wheezing, other Gastrointestinal/Abdominal: Denies: no symptoms, abdomen distended, abdominal pain, black stools, tarry stools, blood in stool, constipated, diarrhea, difficulty swallowing, nausea, poor appetite, poor fluid intake, rectal bleeding, vomiting, other Genitourinary: Denies: no symptoms, burning, discharge, frequency, flank pain, hematuria, incontinence, pain, urgency, other Neurologic/Psychiatric: Denies: no symptoms, anxiety, depressed, emotional problems, headache, numbness, paresthesia, pre-existing deficit, seizure, tingling, tremors, weakness, other Endocrine: Denies: no symptoms, excessive sweating, flushing, intolerance to cold, intolerance to heat, increased hunger, increased thirst, increased urine, unexplained weight gain, unexplained weight loss, other Hematologic/Lymphatic: Denies: no symptoms, anemia, easy bleeding, easy bruising, adenopathy, other Allergies: Coded Allergies: No Known Allergies (Unverified , 06/10/19) Subjective 08/15 meds noted, no bleeding, hgb 8.8, wbc 28, path flow pending 08/16 flow pending dw pathologist, results pending, wbc 25, hgb 9 08/17 labs reviewed, meds reviewed, meds noted, no night sweats 08/19 remains obtunded, on vent/trach, no bleeding wbc 21.7 08/20 labs have been reviewed, no bleeding, wbc still elev, path reviewed 08/21 labs are noted, no bleeding, on vent, wbc better 08/22 labs noted, no bleeding, meds reviewed, wbc 24 hgb 7.6 08/23 vent, off abx, c diff negative, h/h stable 08/24 labs reviewed, on abx, wbc 17, hgb 8.9, no hemolysis 08/26 reviewed flow and is negative for leukemia, matt rn 08/27 meds reviewed, no night sweats, matt rn, no major bleeding 08/28 meds reivewed, labs noted 08/29 wbc is stable, approx 15, hgb 8.8, no hemolysis 08/30 labs are noted, is for colo today, hgb 9.9 08/31 right fem julito in place, unchanged, hgb 9.2, gi aware 09/01 labs noted, hgb 8.8, plt >600, no bleeding 09/02 labs noted, no bleeding, with elev wbc still, no new changes 09/03 meds are noted, no bleeding, labs reviewed hgb 8.6 09/04 no major events, hd as per renal, abx, no bleeding hgb low 09/05 labs are noted, no bleeding, meds have been reviewed 09/06 no new labs no hemolysis, cbc is noted, no bleeding 09/07 meds reviewed, no bleeding, matt rn, permacath functioning well 09/09 meds reviewed, wbc still elevated, as per id recs, cbc noted 09/10 is obtunded, with gutbe in place, labs reviewed 09/11 obtunded, as per id, observe now off abx, labs noted, wbc 19 09/12 cbc is pending, remains on epogen, also off abx 09/13 labs reviewed, no bleeding, elev wbc, no night sweats 09/14 meds noted, no bleeding, wbc 19, hgb 9.5, no night sweats 09/21 obtunded, remains on vent, labs noted, no bleeding, hgb 8.9 09/22 obtunded, labs noted, no bleeding, on vent, unchanged 09/23 unchanges, wbc remains elevated 20k, on abx, on vent 09/24 labs have been reviewed, no bleeding, wbc 15, may need abx 09/25 formula gtube changed, labs noted, remains obtunded, hgb 9.3 09/26 labs have been reviewed, no bleeding, matt rn, no night sweats 09/27 meds reviewed, no bleeding, wbc 14, on abx, remains obtunded 09/28 remains obtunded, no bleeding, wbc better, hgb 8.9, no hemolysis, plt 506 09/30 on colisitn, wbc elevated, cefepime added per id, hgb stable 10/01 labs reviewed, no bleeding, matt rn, no major events noted, wbc 14, hgb 10.6 10/02 labs have been noted, hgb 9.2, wbc 17, on abx, matt rn 10/03 continue on tube feeds, no bleeding, on vent, wbc remains elevated 10/04 remains ibtunded, is on a mechanical ventilator with tube feeds noted 10/05 labs are noted, hgb 8.6, wbc remains elevated, have ordered for spep 10/07 obtunded on vent, with gtube feeds, labs reviewed, matt rn 10/08 labs are noted, on vent/trach, hgb 10.2, remains obtunded 10/09 labns noted, wbc 15, hgb 8.9, remains altered, on tfs 10/10 labs noted, holding tube feeds, matt rn, hg stable 8.3 currently 10/11 remains on tfs, supportive care, labs noted, no bleeding 10/12 remains obtunded, hgb 8.9, no hemolysis is seen 10/14 labs reviewed, no bleeding, pending potential hd if rn available 10/15 is on vent, with gtube, labs reviewed, no bleeding, to get hd soon 10/16 remains on vent, matt rn at bedside, wbc 15, abx prn, plt also higher, will monitor 10/17 on vent, continue on tube feeds via gtube, labs improved 10/18 labs noted, remains on vent, and tube feeds, no major changes 10/19 nad, no bleeding, labs reviewed, no night sweats, bp elevated, cards aware 10/21 labs pending, with gtube running, on mec vent, abx off 10/22 labs reviewed, no major changes, wbc 18, plt 791k, on gtube feeds 10/23 labs reviewed, meds noted, on epogen and lovenox sq, obtunded, is nv 9.16 labs are noted, wbc 28, hgb 8.6, no hemolysis is noted 10/27 labs reviewed, on mech vent, on gtube feeds, no bleeding wbc 21 10/28 labs noted, wbc 19, plt remains elevated, hd as per renal Dr. Frank 10/29 obtunded, gt feedings on hold, wbc 19, hgb 9, no bleeding 10/30 labs reviewed, no bleeding, wbc 21, hgb 9, hd as per renal care 10/31 labs are noted, wbc 19, hgb 8.4, on vent, obtunded 11/01 obtunded state, no bleeding, meds reviewed, on heparin started today, matt wright 11/02 nv, trach, no bleeding, wbc has increased likely due to infection 11/03 is off abx, no bleeding, meds noted, no hemolysis seen, wbc 15 11/04 meds noted, no bleeding, matt wright 11/06 no residual, labs reviewed, no night sweats, no hemoptysis Objective Objective Current Medications Medications (Trade) Dose Ordered Sig/Leonel Route PRN Reason Start Time Stop Time Status Last Admin Dose Admin Acetaminophen (Tylenol) 650 mg Q6H PRN GT Temp >100.5 10/21/19 20:45 11/20/19 20:44 11/06/19 04:43 Chlorhexidine Gluconate (Felipa-Hex 2%) 1 applic DAILY@1999 TOPIC 09/12/19 20:00 12/11/19 19:59 11/06/19 20:46 Clonidine HCl (Catapres Tab) 0.1 mg Q4H PRN GT For High Blood Pressure 09/09/19 12:30 12/08/19 05:29 09/15/19 04:10 Dextrose (Dextrose 50%) 25 ml Q30M PRN IV Hypoglycemia 08/09/19 07:30 11/07/19 07:29 Dextrose (Dextrose 50%) 50 ml Q30M PRN IV Hypoglycemia 08/09/19 07:30 11/07/19 07:29 Epoetin Andreas (Epoetin Andreas(ESRD on dialysis)) 8,000 unit SUBQ 10/25/19 21:00 01/23/20 20:59 11/06/19 20:47 Famotidine (Pepcid) 20 mg DAILY GT 08/30/19 09:00 11/28/19 08:59 11/06/19 08:16 Heparin Sodium (Porcine) (Heparin 5000 units/ml) 5,000 units EVERY 12 HOURS SUBQ 11/02/19 09:00 12/17/19 08:59 11/06/19 20:48 Insulin Aspart (NovoLOG) Q6HR SUBQ 09/25/19 18:00 11/07/19 11:29 11/07/19 05:01 Lactobacillus Acidophilus (Culturelle) 1 tab EVERY 12 HOURS GT 10/03/19 21:00 12/13/19 17:59 11/06/19 20:47 Loperamide HCl (Imodium) 2 mg Q6H PRN NG Diarrhea 10/15/19 07:45 11/14/19 07:44 Metoprolol Tartrate (Lopressor) 200 mg Q12HR GT 08/09/19 09:00 11/07/19 08:59 11/06/19 20:47 Minoxidil (Loniten) 5 mg DAILY GT 08/09/19 09:00 11/07/19 08:59 11/06/19 08:15 Sodium Chloride 500 ml @ 999 mls/hr Q31M PRN IV sbp<90 10/28/19 21:30 11/27/19 21:29 Zinc Oxide (Zinc Oxide) 1 applic EVERY 12 HOURS TOPIC 10/03/19 09:00 11/08/19 17:59 11/06/19 20:49 Last 24 Hour Vital Signs Date Time Temp Pulse Resp B/P (MAP) Pulse Ox O2 Delivery O2 Flow Rate FiO2 11/07/19 04:00 Mechanical Ventilator 11/07/19 04:00 24 11/07/19 04:00 98.9 88 16 116/64 (81) 100 11/07/19 03:25 82 11/07/19 03:05 99 14 24 11/07/19 00:00 24 11/07/19 00:00 Mechanical Ventilator 11/07/19 00:00 98.6 98 16 121/76 (91) 100 11/06/19 23:29 97 11/06/19 23:24 97 14 24 11/06/19 20:47 103 131/82 11/06/19 20:00 24 11/06/19 20:00 98.8 106 14 131/82 (98) 100 11/06/19 20:00 Mechanical Ventilator 11/06/19 19:38 107 17 24 11/06/19 19:07 104 11/06/19 16:00 Mechanical Ventilator 11/06/19 16:00 24 11/06/19 16:00 98 11/06/19 16:00 98.6 106 16 122/75 (91) 99 11/06/19 15:14 100 16 24 11/06/19 12:00 24 11/06/19 12:00 83 11/06/19 12:00 98.2 85 18 125/51 (75) 100 11/06/19 12:00 Mechanical Ventilator 11/06/19 11:07 82 16 24 11/06/19 08:15 106 134/74 11/06/19 08:15 134/74 11/06/19 08:00 97.1 106 18 134/74 (94) 100 11/06/19 08:00 93 11/06/19 08:00 Mechanical Ventilator 11/06/19 08:00 24 11/06/19 07:22 81 13 24 11/06/19 05:45 98.1 11/06/19 05:13 98.1 11/06/19 04:30 100.4 11/06/19 04:00 24 11/06/19 04:00 Mechanical Ventilator 11/06/19 04:00 106 11/06/19 04:00 99.0 100 16 134/70 (91) 100 11/06/19 02:45 96 18 24 11/06/19 00:00 98.7 100 16 114/59 (77) 100 11/06/19 00:00 Mechanical Ventilator 11/06/19 00:00 109 11/05/19 22:33 109 16 24 11/05/19 21:00 100 110/50 11/05/19 20:00 98.9 90 18 110/50 (70) 100 9/27/20 20:00 24 11/05/19 20:00 Mechanical Ventilator 11/05/19 19:35 92 11/05/19 18:45 92 14 24 11/05/19 16:00 24 11/05/19 16:00 98.3 77 18 101/73 (82) 95 11/05/19 16:00 90 11/05/19 16:00 Mechanical Ventilator 11/05/19 15:10 91 16 24 11/05/19 12:00 24 11/05/19 12:00 98.4 99 17 93/52 (66) 97 99 11/05/19 12:00 Mechanical Ventilator 11/05/19 12:00 99 11/05/19 11:19 89 16 24 11/05/19 09:00 117 11/05/19 08:47 99.1 11/05/19 08:16 110 122/57 11/05/19 08:16 122/57 11/05/19 08:00 99.7 110 25 122/57 (78) 100 11/05/19 08:00 Mechanical Ventilator 11/05/19 08:00 24 11/05/19 07:15 95 14 24 Intake and Output 11/06/19 11/07/19 19:00 07:00 Intake Total 465 ml 560 ml Output Total 20 ml Balance 445 ml 560 ml Free Water 60 ml 110 ml Tube Feeding 405 ml 450 ml Stool Total 20 ml Labs Test 11/04/19 11:58 11/04/19 23:59 11/05/19 06:02 11/05/19 07:29 POC Whole Blood Glucose 216 MG/DL (74-106) 206 MG/DL (74-106) White Blood Count 15.0 K/UL (4.8-10.8) Red Blood Count 3.94 M/UL (4.70-6.10) Hemoglobin 9.1 G/DL (14.2-18.0) Hematocrit 29.6 % (42.0-52.0) Mean Corpuscular Volume 75 FL (80-99) Mean Corpuscular Hemoglobin 23.2 PG (27.0-31.0) Mean Corpuscular Hemoglobin Concent 30.9 G/DL (32.0-36.0) Red Cell Distribution Width 18.3 % (11.6-14.8) Platelet Count 586 K/UL (150-450) Mean Platelet Volume 5.6 FL (6.5-10.1) Neutrophils (%) (Auto) 75.4 % (45.0-75.0) Lymphocytes (%) (Auto) 11.5 % (20.0-45.0) Monocytes (%) (Auto) 8.6 % (1.0-10.0) Eosinophils (%) (Auto) 3.6 % (0.0-3.0) Basophils (%) (Auto) 0.9 % (0.0-2.0) Sodium Level 135 MMOL/L (136-145) Potassium Level 3.8 MMOL/L (3.5-5.1) Chloride Level 98 MMOL/L (98-107) Carbon Dioxide Level 28 MMOL/L (21-32) Anion Gap 9 mmol/L (5-15) Blood Urea Nitrogen 44 mg/dL (7-18) Creatinine 2.6 MG/DL (0.55-1.30) Estimat Glomerular Filtration Rate 24.0 mL/min (>60) Glucose Level 195 MG/DL (74-106) Calcium Level 9.7 MG/DL (8.5-10.1) Test 11/05/19 11:39 11/05/19 16:52 11/05/19 23:24 11/06/19 05:17 POC Whole Blood Glucose 132 MG/DL (74-106) 144 MG/DL (74-106) 176 MG/DL (74-106) 198 MG/DL (74-106) Test 11/06/19 10:50 11/06/19 12:45 11/06/19 17:20 11/06/19 23:08 White Blood Count 17.0 K/UL (4.8-10.8) Red Blood Count 4.25 M/UL (4.70-6.10) Hemoglobin 9.6 G/DL (14.2-18.0) Hematocrit 31.8 % (42.0-52.0) Mean Corpuscular Volume 75 FL (80-99) Mean Corpuscular Hemoglobin 22.7 PG (27.0-31.0) Mean Corpuscular Hemoglobin Concent 30.2 G/DL (32.0-36.0) Red Cell Distribution Width 18.4 % (11.6-14.8) Platelet Count 624 K/UL (150-450) Mean Platelet Volume 5.8 FL (6.5-10.1) Neutrophils (%) (Auto) 69.9 % (45.0-75.0) Lymphocytes (%) (Auto) 13.5 % (20.0-45.0) Monocytes (%) (Auto) 8.9 % (1.0-10.0) Eosinophils (%) (Auto) 6.3 % (0.0-3.0) Basophils (%) (Auto) 1.4 % (0.0-2.0) Sodium Level 132 MMOL/L (136-145) Potassium Level 4.3 MMOL/L (3.5-5.1) Chloride Level 96 MMOL/L (98-107) Carbon Dioxide Level 25 MMOL/L (21-32) Anion Gap 11 mmol/L (5-15) Blood Urea Nitrogen 62 mg/dL (7-18) Creatinine 3.6 MG/DL (0.55-1.30) Estimat Glomerular Filtration Rate 16.5 mL/min (>60) Glucose Level 125 MG/DL (74-106) Calcium Level 9.7 MG/DL (8.5-10.1) POC Whole Blood Glucose 131 MG/DL (74-106) 204 MG/DL (74-106) Test 11/07/19 04:51 POC Whole Blood Glucose 187 MG/DL (74-106) Height (Feet): 5 Height (Inches): 10.00 Weight (Pounds): 123 Objective Physical Exam General Appearance: nad, Chronically Ill Head: normocephalic Eyes: right eye PERRL - Will not open left eye ENT: moist mucus membranes Neck: other - submandibular mass R, fairly rigid with resistance to rotation to L, tracheotomy Respiratory: decreased breath sounds, crackles, other - pacemaker, vent+ Cardiovascular: regular rate, rhythm, edema - anasarca Gastrointestinal: non tender, distended, other - G tube Genitourinary: other ++rectal tube Musculoskeletal: other - Contractures all extremities Neurologic: sensory intact, motor weakness, responsive Psychiatric: other Skin: Decubitus/Ulcer - Stage III right elbow, stage III left elbow, stage II sacrum, stage III scrotum, warm/dry Fitz Campos MD Nov 07, 2019 06:43
--- NOTE | 2019-11-07 07:05 | NUR ---
NURSE HAND-OFF REPORT: Important Events on Shift: N/A Patient Status: Stable Diet: Nepro Pending Orders: N Pending Results/Labs: N Pending MD notification: N Latest Vital Signs: Temperature 98.9 , Pulse 88 , B/P 116 /64 , Respiratory Rate 16 , O2 SAT 100 , Mechanical Ventilator, O2 Flow Rate 15.0 . Vital Sign Comment: WNL EKG Rhythm: V-Paced Rhythm change?: N MD Notified?: N - MD Response: Latest Delacruz Fall Score: 70 Fall Risk: High Risk Safety Measures: Call light Within Reach, Bed Alarm Zone 1, Side Rails Side Rails x3, Bed position Low and Locked. Fall Precautions: Yellow Socks Yellow Gown Patient Fall Education Report given to TAMICA Eid.
--- NOTE | 2019-11-07 07:15 | NUR ---
NURSE NOTES: RECEIVED BED SIDE REPORT FROM SILVA DAVEY STAFF OF [facility]. REC,D PT WITH HOB ELEVATED 45 DEGREE,OBTUNDED TRACH TO VENT TOLERATING WELL CURRENTS VENT SETTINGS.RENDERED TRACH CARE AND ORAL HYGIENE ,MOD AMT OF WHITE SECRETIONS NOTED. GTF PATENT ,NO RESIDUAL. GTF ON HOLD AT THIS TIME PER ORDERS ,WILL RESUME AT 1000 AM. PT IS ANURIC NO H.D ORDERS NOTED AT THIS TIME. PT REPOSITIONED IN BED Q 2HRS TO PROVIDE COMFORT AND TO PREVENT FURTHER SKIN BREAK DOWN. FULL BODY ASSESSMENT DONE. NO ACUTE DISTRESS NOTED AT THIS TIME NOTE. DR MACIAS CAME TO SEE THE PT AND MADE AWARE AND NOTIFIED REGARDING WBC 17.0. NO NEW ORDERS NOTED AT THIS TIME. WILL CONT TO MONITOR.
--- NOTE | 2019-11-07 07:53 | General Progress Note ---
Subjective Allergies: Coded Allergies: No Known Allergies (Unverified , 06/10/19) Subjective remains ill on vent/ no change on HD vitals noted=remains tachycardic Objective Last 24 Hour Vital Signs Date Time Temp Pulse Resp B/P (MAP) Pulse Ox O2 Delivery O2 Flow Rate FiO2 11/07/19 04:00 Mechanical Ventilator 11/07/19 04:00 24 11/07/19 04:00 98.9 88 16 116/64 (81) 100 11/07/19 03:25 82 11/07/19 03:05 99 14 24 11/07/19 00:00 24 11/07/19 00:00 Mechanical Ventilator 11/07/19 00:00 98.6 98 16 121/76 (91) 100 11/06/19 23:29 97 11/06/19 23:24 97 14 24 11/06/19 20:47 103 131/82 11/06/19 20:00 24 11/06/19 20:00 98.8 106 14 131/82 (98) 100 11/06/19 20:00 Mechanical Ventilator 11/06/19 19:38 107 17 24 11/06/19 19:07 104 11/06/19 16:00 Mechanical Ventilator 11/06/19 16:00 24 11/06/19 16:00 98 11/06/19 16:00 98.6 106 16 122/75 (91) 99 11/06/19 15:14 100 16 24 11/06/19 12:00 24 11/06/19 12:00 83 11/06/19 12:00 98.2 85 18 125/51 (75) 100 11/06/19 12:00 Mechanical Ventilator 11/06/19 11:07 82 16 24 11/06/19 08:15 106 134/74 11/06/19 08:15 134/74 11/06/19 08:00 97.1 106 18 134/74 (94) 100 11/06/19 08:00 93 11/06/19 08:00 Mechanical Ventilator 11/06/19 08:00 24 Intake and Output 11/06/19 11/07/19 18:59 06:59 Intake Total 420 ml 605 ml Output Total 20 ml Balance 400 ml 605 ml Free Water 60 ml 110 ml Tube Feeding 360 ml 495 ml Stool Total 20 ml Laboratory Tests 11/06/19 10:50: White Blood Count 17.0H, Red Blood Count 4.25L, Hemoglobin 9.6L, Hematocrit 3 1.8L, Mean Corpuscular Volume 75L, Mean Corpuscular Hemoglobin 22.7L, Mean Corpuscular Hemoglobin Concent 30.2L, Red Cell Distribution Width 18.4H, Thad telet Count 624H, Mean Platelet Volume 5.8L, Neutrophils (%) (Auto) 69.9, Lymphocytes (%) (Auto) 13.5L, Monocytes (%) (Auto) 8.9, Eosinophils (%) (Auto) 6.3H, Basophils (%) (Auto) 1.4, Sodium Level 132L, Potassium Level 4.3, Chloride Level 96L, Carbon Dioxide Level 25, Anion Gap 11, Blood Urea Nitrogen 62H, Creatinine 3.6H, Estimat Glomerular Filtration Rate 16.5, Glucose Level 125H, Calcium Level 9.7 11/06/19 12:45: POC Whole Blood Glucose 131H 11/06/19 17:20: POC Whole Blood Glucose [Pending] 11/06/19 23:08: POC Whole Blood Glucose 204H 11/07/19 04:51: POC Whole Blood Glucose 187H Height (Feet): 5 Height (Inches): 10.00 Weight (Pounds): 123 Objective GENERAL: Ill-appearing male, chronically debilitated. HEENT: Tracheostomy in midline. Questionable fullness in the submandibular region. LUNGS: Coarse breath sounds. reduced breath sounds CARDIAC: S1, S2. Regular rate and rhythm. tachy ABDOMEN: Soft. G-tube. EXTREMITIES: With noted edema. NEUROLOGICAL: Poorly responsive, weak diffusely. Assessment/Plan Assessment/Plan: IMPRESSION: 1. anemia. 2. fevers improved 3. Leukocytosis. 4. hypotension 5. Acute on chronic renal failure. 6. Hyponatremia. 7. Severe protein-calorie malnutrition. 8. Significantly elevated C-reactive protein concerning for infectious etiology. 9. Tracheostomy, G-tube. 10. Ventilator dependence. 11. anasarca 12. Hematuria 13. V pacing 14. hyponatremia 15. transaminitis, HIDA negative PLAN monitor vitals; cards following and control HR antibiotics per ID chronic care; unable to place care noted on vent/ no wean monitor labs and optimize ID follow up - wbc now worse dialysis ongoing- adjust lytes prognosis poor for recovery impression, plan, and exam edited and reviewed in detail care discussed with Kain Tovar MD Nov 07, 2019 07:53
[2019-11-07 08:00] VITALS: BP 137/72
[2019-11-07] MEDS: Lactobacillus-GG tablet GT SCH ×2 (09:16→20:11)
[2019-11-07] MEDS: Zinc Oxide Oint 2oz TOPIC SCH ×2 (09:17→20:11)
[2019-11-07] MEDS: Heparin 5000 units/ml inj SUBQ SCH ×2 (09:18→20:13)
--- NOTE | 2019-11-07 11:21 | Infectious Diseases Prog Note ---
"Assessment/Plan Assessment/Plan antibiotics : none A 1. morganella | klebsiella pneumonia s/p rx 2. respiratory failure 3. leucocytosis 4. COVID 19 test negative x 2 5. renal failure on HD P 1. continue off antibiotics 2. will follow up cultures Subjective ROS Limited/Unobtainable: Yes Allergies: Coded Allergies: No Known Allergies (Unverified , 06/10/19) Objective Last 24 Hour Vital Signs Date Time Temp Pulse Resp B/P (MAP) Pulse Ox O2 Delivery O2 Flow Rate FiO2 11/07/19 08:00 99.5 90 17 137/72 (93) 100 11/07/19 08:00 Mechanical Ventilator 11/07/19 08:00 90 11/07/19 08:00 24 11/07/19 07:40 90 14 24 11/07/19 04:00 Mechanical Ventilator 11/07/19 04:00 24 11/07/19 04:00 98.9 88 16 116/64 (81) 100 11/07/19 03:25 82 11/07/19 03:05 99 14 24 11/07/19 00:00 24 11/07/19 00:00 Mechanical Ventilator 11/07/19 00:00 98.6 98 16 121/76 (91) 100 11/06/19 23:29 97 11/06/19 23:24 97 14 24 11/06/19 20:47 103 131/82 11/06/19 20:00 24 11/06/19 20:00 98.8 106 14 131/82 (98) 100 11/06/19 20:00 Mechanical Ventilator 11/06/19 19:38 107 17 24 11/06/19 19:07 104 11/06/19 16:00 Mechanical Ventilator 11/06/19 16:00 24 11/06/19 16:00 98 11/06/19 16:00 98.6 106 16 122/75 (91) 99 11/06/19 15:14 100 16 24 11/06/19 12:00 24 11/06/19 12:00 83 11/06/19 12:00 98.2 85 18 125/51 (75) 100 11/06/19 12:00 Mechanical Ventilator Height (Feet): 5 Height (Inches): 10.00 Weight (Pounds): 123 HEENT: status post trach Respiratory/Chest: lungs clear Cardiovascular: normal rate, regular rhythm, no gallop/murmur Abdomen: soft, non tender, other - GT Extremities: no edema, other - right subclavian catheter Laboratory Tests Test 11/06/19 12:45 11/06/19 17:20 11/06/19 23:08 11/07/19 04:51 POC Whole Blood Glucose 131 MG/DL (74-106) H Pending 204 MG/DL (74-106) H 187 MG/DL (74-106) H Current Medications Medications (Trade) Dose Ordered Sig/Leonel Route PRN Reason Start Time Stop Time Status Last Admin Dose Admin Acetaminophen (Tylenol) 650 mg Q6H PRN GT Temp >100.5 10/21/19 20:45 11/20/19 20:44 11/06/19 04:43 Chlorhexidine Gluconate (Felipa-Hex 2%) 1 applic DAILY@2000 TOPIC 09/12/19 20:00 12/11/19 19:59 11/06/19 20:46 Clonidine HCl (Catapres Tab) 0.1 mg Q4H PRN GT For High Blood Pressure 09/09/19 12:30 12/08/19 05:29 09/15/19 04:10 Epoetin Andreas (Epoetin Andreas(ESRD on dialysis)) 8,000 unit WED-WED-WED SUBQ 10/25/19 21:00 01/23/20 20:59 11/06/19 20:47 Famotidine (Pepcid) 20 mg DAILY GT 08/30/19 09:00 11/28/19 08:59 11/07/19 09:16 Heparin Sodium (Porcine) (Heparin 5000 units/ml) 5,000 units EVERY 12 HOURS SUBQ 11/02/19 09:00 12/17/19 08:59 11/07/19 09:18 Insulin Aspart (NovoLOG) Q6HR SUBQ 09/25/19 18:00 11/07/19 11:29 11/07/19 05:01 Lactobacillus Acidophilus (Culturelle) 1 tab EVERY 12 HOURS GT 10/03/19 21:00 12/13/19 17:59 11/07/19 09:16 Loperamide HCl (Imodium) 2 mg Q6H PRN NG Diarrhea 10/15/19 07:45 11/14/19 07:44 Sodium Chloride 500 ml @ 999 mls/hr Q31M PRN IV sbp<90 10/28/19 21:30 11/27/19 21:29 Zinc Oxide (Zinc Oxide) 1 applic EVERY 12 HOURS TOPIC 10/03/19 09:00 11/08/19 17:59 11/07/19 09:17 Farnaz Lyle MD Nov 07, 2019 11:21"
--- NOTE | 2019-11-07 11:43 | Nephrology Progress Note ---
Assessment/Plan Plan Septic Shock -Restarted IV Abx per ID. ESRD - HD TTS + IVF boluses PRN. Anemia of CKD -TUYET. Subjective Subjective Obtunded. Objective Objective Last 24 Hour Vital Signs Date Time Temp Pulse Resp B/P (MAP) Pulse Ox O2 Delivery O2 Flow Rate FiO2 11/07/19 08:00 99.5 90 17 137/72 (93) 100 11/07/19 08:00 Mechanical Ventilator 11/07/19 08:00 90 11/07/19 08:00 24 11/07/19 07:40 90 14 24 11/07/19 04:00 Mechanical Ventilator 11/07/19 04:00 24 11/07/19 04:00 98.9 88 16 116/64 (81) 100 11/07/19 03:25 82 11/07/19 03:05 99 14 24 11/07/19 00:00 24 11/07/19 00:00 Mechanical Ventilator 11/07/19 00:00 98.6 98 16 121/76 (91) 100 11/06/19 23:29 97 11/06/19 23:24 97 14 24 11/06/19 20:47 103 131/82 11/06/19 20:00 24 11/06/19 20:00 98.8 106 14 131/82 (98) 100 11/06/19 20:00 Mechanical Ventilator 11/06/19 19:38 107 17 24 11/06/19 19:07 104 11/06/19 16:00 Mechanical Ventilator 11/06/19 16:00 24 11/06/19 16:00 98 11/06/19 16:00 98.6 106 16 122/75 (91) 99 11/06/19 15:14 100 16 24 11/06/19 12:00 24 11/06/19 12:00 83 11/06/19 12:00 98.2 85 18 125/51 (75) 100 11/06/19 12:00 Mechanical Ventilator Intake and Output 11/06/19 11/07/19 19:00 07:00 Intake Total 465 ml 560 ml Output Total 20 ml 30 ml Balance 445 ml 530 ml Free Water 60 ml 110 ml Tube Feeding 405 ml 450 ml Stool Total 20 ml 30 ml # Bowel Movements 1 Laboratory Tests 11/06/19 12:45: POC Whole Blood Glucose 131H 9/28/20 17:20: POC Whole Blood Glucose [Pending] 11/06/19 23:08: POC Whole Blood Glucose 204H 11/07/19 04:51: POC Whole Blood Glucose 187H Height (Feet): 5 Height (Inches): 10.00 Weight (Pounds): 123 Objective Clammy, diaphoretic CV RR Trach clean Lungs CTA Perma Cath RIJ. Abd SNT. BS + E No CCE Barely responsive Erica Pichardo MD Nov 07, 2019 11:43
[2019-11-07 12:00] VITALS: BP 128/72
[2019-11-07] MEDS ORDERED: Heparin Sod 1000 units/ml 10ml IV PRN (12:00)
[2019-11-07] MEDS ORDERED: Heparin 1000 units/ml 1ml Vial INJ PRN (12:00)
--- NOTE | 2019-11-07 12:46 | NUR ---
CASE MANAGEMENT: REVIEW SI: FAILURE TO THRIVE . ESRD on HD . ANEMIA T 99.5 HR 90 RR 17 BP 137/72 SAT 100% MECH VENT FIO2 24 GLUCOSE 187 IS: EPOETIN SUBQ MWF HEPARIN SUBQ Q12HR LACTOBACILLUS GT Q12HR HD PER RENAL STEP DOWN UNIT STATUS DCP: PLACEMENT PENDING. HEALTH PLAN ASSISTING WITH PLACEMENT
--- NOTE | 2019-11-07 12:46 | Surgery Progress Note ---
Surgery Progress Note Subjective Procedure Performed Right femoral temporary hemodialysis catheter removal Additional Comments no acute events labs noted exam stable Objective Last 24 Hour Vital Signs Date Time Temp Pulse Resp B/P (MAP) Pulse Ox O2 Delivery O2 Flow Rate FiO2 11/07/19 12:00 24 11/07/19 12:00 98.1 98 19 128/72 (90) 100 11/07/19 12:00 Mechanical Ventilator 11/07/19 11:00 97 18 24 11/07/19 08:00 99.5 90 17 137/72 (93) 100 11/07/19 08:00 Mechanical Ventilator 11/07/19 08:00 90 11/07/19 08:00 24 11/07/19 07:40 90 14 24 11/07/19 04:00 Mechanical Ventilator 11/07/19 04:00 24 11/07/19 04:00 98.9 88 16 116/64 (81) 100 11/07/19 03:25 82 11/07/19 03:05 99 14 24 11/07/19 00:00 24 11/07/19 00:00 Mechanical Ventilator 11/07/19 00:00 98.6 98 16 121/76 (91) 100 11/06/19 23:29 97 11/06/19 23:24 97 14 24 11/06/19 20:47 103 131/82 11/06/19 20:00 24 11/06/19 20:00 98.8 106 14 131/82 (98) 100 11/06/19 20:00 Mechanical Ventilator 11/06/19 19:38 107 17 24 11/06/19 19:07 104 11/06/19 16:00 Mechanical Ventilator 11/06/19 16:00 24 11/06/19 16:00 98 11/06/19 16:00 98.6 106 16 122/75 (91) 99 11/06/19 15:14 100 16 24 I&O Intake and Output 11/06/19 11/07/19 18:59 06:59 Intake Total 420 ml 605 ml Output Total 20 ml Balance 400 ml 605 ml Free Water 60 ml 110 ml Tube Feeding 360 ml 495 ml Stool Total 20 ml Dressing: other Wound: other Cardiovascular: RSR Respiratory: decreased breath sounds Abdomen: soft, non-tender, present bowel sounds Extremities: no tenderness, no cyanosis Laboratory Tests Test 9/28/20 17:20 11/06/19 23:08 11/07/19 04:51 POC Whole Blood Glucose Pending 204 MG/DL (74-106) H 187 MG/DL (74-106) H Plan Problems: (1) Anemia (2) Hyponatremia (3) Leukocytosis Assessment & Plan: Tracheostomy, left chest pacemaker are again demonstrated. There is bilateral interstitial and airspace disease and bilateral pleural fluid again demonstrated. This appears more severe than on the prior study. Bilateral interstitial and airspace infiltrates versus edema. Bilateral pleural effusions Leukocytosis, anemia, tachycardia, abnormal labs. Wound evaluated and likely etiology of patient's sepsis. Leukocytosis etiology work-up antibiotics per infectious disease Appreciate nephrology input transfuse with dialysis We will follow with recommendations thank you allowing participation's care plan HD access temp HD discussed with medical teams line okay HD as per renal persistent leukocytosis flow cyto noted improving trending down right fem line removed wbc fluctuating h/h stable lft's elevated There is a right pleural effusion Gallbladder demonstrates tiny wall adherent nonmobile echogenic foci, some possible mural calcifications, and comet tail artifact in the anterior wall. Patient unable to report sonographic Kent's sign. Common bile duct measures 4 mm in diameter. No intrahepatic biliary ductal dilatation. Liver demonstrates normal echogenicity, no focal abnormality. There is some surface nodularity. Portal vein and hepatic veins are patent. Pancreas is incompletely visualized due to overlying bowel gas, visualized portions are unremarkable. Spleen is unremarkable. Left kidney measures 8.7 cm in length. Right kidney measures 8.9 cm length. Both kidneys demonstrate increased echogenicity. There is no hydronephrosis. No focal abnormality . Abdominal aorta is partially obscured by bowel gas, visualized portions are non-aneurysmal . A gastrostomy is noted Impression: Tiny wall adherent nonmobile gallbladder echogenic foci, may reflect wall adherent calculi, small polyps, and/or pleural calcifications. Anterior wall comet tail artifact suggests foci of adenomyomatosis. Normal caliber common bile duct Possible hepatic surface nodularity, could indicate cirrhotic change Echogenic kidneys, consistent with medical renal disease. No hydronephrosis Right pleural effusion Gastrostomy Note nonvisualization of portions of the pancreas and abdominal aorta HIDA NEGATIVE trend labs (4) Ventilator dependent (5) Right lower lobe pneumonia (6) Hypokalemia (7) Hyperkalemia (8) Anasarca (9) Decubitus skin ulcer Assessment & Plan: pt presented on admission with generalized edemae.Skin assessed under tracheostomy and no areas of concerns noted. GT Insertion is marginally erythematous with small amt slough at stoma. Unstageable Pressure Injury R elbow. Base of wound is 100% yellow slough,Borders are erythematous. Wound oozing small amt haemopurulent exudate.Darker skin tone without elevation in skin temp or erythema periwound. Pt's penis and scrotum are grossly edematous and enlarged and weeping serous exudate from numerous sites both from penis and scrotum. Two small open wounds noted at base of at base of shaft of penis ,and contreras aspect of scrotum. Both wounds oozing large amt sanguineous and serosanguineous exudate. Multiple open wounds with Biofilm at base of each wounds noted to contreras/lateral,inferior and posterior aspects of scrotum. These wounds noted to be oozing moderate amts of serosanguineous exudate. Hypertrophic scar with scattered areas of hyperpigmentation noted to Sacrum. DTPI noted to L Buttocks (L)7cm x (W)9cm. Base of wound is purple and indurated.Darker skin tone without erythema,induration or fluctuance R and L ischial tuberosities. Both heels are boggy with non-blanchable erythema. potential decline given chronic illness Tx.Plan: Cleanse wound R elbow with Saline. Apply TheraHoney, Apply Moisture Barrier Paste periwound. Cover with Optifoam drsg.Change Daily and prn. Wash GT site with soap and water.Pat dry. Apply Zinc Oxide Paste to GT site Daily. Leave Open to Air. Apply Zinc Oxide Paste to entire Scrotum, Place ABD pads to R and L lateral, and posterior aspects of scrotum TWICE daily. Apply Cavilon Skin Barrier to malleoli and both Heels. Cover each site with Optifoam drsgs. Change every 7 days and prn. Reposition at least every 2hours or as tolerated. Off-load heels with Pillows. APM/BECCA Mattress overlay. (10) Malnutrition Assessment & Plan: DAILY ESTIMATED NEEDS: Needs based on Renal, critical care, wound/ 61kg 22-30 kcals/kg [id number] total kcals 1.25-2 g protein/kg 76-122 g total protein Fluid per MD, now on HD NUTRITION DIAGNOSIS: * Swallowing difficulty R/T respiratory failure, dysphagia as evidenced by trach/vent dep, PEG dep * Increased kcal/prot needs R/T wound healing as evidenced by admitted w/ multiple pressure injuries including full thickness wounds at junction of Shaft of penis, dorsal scrotum, R elbow, and DTPI @ L buttocks. CURRENT TF:Osmolite 1.2 @ 60ml/hr x 20 hrs + Garo BID ENTERAL NUTRITION RECOMMENDATIONS: Vital AF 1.2 @ 60ml/hr x 20 hrs to provide 1200ml, 1440kcal, 90g prot, 973ml free water * Rec 20 hr run time for GI rest. -> W/ improved GI status, rec Vital AF 1.2, an elemental and carb controlled TF -> monitor lytes and renal fxn closely, monitor need for renal TF -> TF @ goal will provide 1642mg K and 2025mg Phos -> HOB over 30 degrees/ water flush per MD -------- Trial of Osmolite 1.2 continue for now- Goal of 60ml/hr for 20 hrs (4 hrs bowel rest) to provide 1200ml, 1440 kcal, 67g pro, 984ml free H2O, -> Rec to add prosource 1 pack daily (11g pro) to better meet est pro needs. -> Monitor BG, K closely. Pt would require increased insulin coverage as TF at goal would provide 56g more carbs per day. ADDITIONAL RECOMMENDATIONS: * Per SNF: HT=63" KK=037 lbs (vs EMR wt of 166lbs) -> obtain re-calibrated bedscale wt, rec daily wt monitoring * Wound healing: con't Nephrovite + Garo BID/ Vit C dosing per Nephro * Monitor renal fxn and lytes closely w/ non-renal TF ->K low, phos wnl;updated mag level; rec increased insulin w/ BG labs * Daily wts w/ drop to 118-20 lbs, rec to recalibrate for accurate CBW * Consider DC Miralax if medically appropriate: +rectal tube (11) Uremia (12) CKD (chronic kidney disease) stage 5, GFR less than 15 ml/min (13) Colon distention Assessment & Plan: discussed with GI likely functional as having lots of loose bm rectal tube kub f/u s/p colonoscopy - findings reviewed with GI improved cont diet as tolerated repeat KUB Marked distention of the sigmoid colon. 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 No evidence of bowel wall thicke jose or pneumatosis 12 mm focus of contrast enhancement in the right pectineus muscle. While nonspecific in appearance, appearance raises concern for a possible pseudoaneurysm. Ill- defined thickening of the pectus medius muscle could indicate some intramuscular hemorrhage. The above findings were phoned to Dr. Urias at the time of interpretation Large bilateral pleural effusions Hazy pulmonary parenchymal opacities as well as dense consolidative opacities most likely represent pulmonary edema, but could represent pneumonia Evidence of anasarca elsewhere, with generalized edema of the subcutaneous fat Bladder wall thickening, raises concern for cystitis. Avalos catheter in place Colonic diverticulosis. No evidence of diverticulitis. Tracheostomy Pacemaker Gastrostomy Gastrostomy again demonstrated in satisfactory position. The stomach is otherwise unremarkable. The distal esophagus and duodenum are unremarkable. Ingested contrast reaches the colon. No small bowel distention or small bowel wall thickening. Interim placement of a rectal tube. There are a few colonic diverticula. No definite evidence of acute diverticulitis. The appendix is prominent in caliber, as previously No free or loculated intraperitoneal gas or fluid is evident. Again demonstrated is marked gaseous distention of the sigmoid colon which measures up to 12.6 cm in diameter, with the proximal aspect located laterally to the distal aspect, and caliber transition in the mesenteric root of both entry points. However, there is stool within the proximal portion which appears to be at least partially contrast opacified, and no definite persisting of the vascular pedicle demonstrated. The liver, gallbladder, bile ducts, pancreas, spleen, adrenals, kidneys are unremarkable. There are accessory splenules demonstrated. No retroperitoneal or mesenteric mass or adenopathy. No pelvic mass or adenopathy. The prostate is enlarged and protrudes into the inferior bladder. The bladder is thick-walled. Previously demonstrated Avalos catheter has been removed. Again demonstrated is a large right pleural effusion and a moderate to large left pleural effusion. Again demonstrated are compressive atelectatic changes of significant portions of both lower lobes. Pacemaker wires are seen within the heart. Previously demonstrated high attenuation focus within the right pectineus muscle is not evident. However, there is a low-attenuation area which measures 2 cm diameter centrally which is not evident previously. There is diffuse edema of the subcutaneous fat. This is less severe than was demonstrated previously. There are degenerative proliferative changes of the lum bar spine. Impression: Abnormal configuration of the sigmoid colon, with marked distention of a sigmoid, inversion of the relationships of the proximal and descending colon, and evidence of immediately apposed transition point raises concern for sigmoid volvulus. However, similarity to the prior exam, presence of what appears to be contrast opacified stool within the dilated segment, and lack of evidence of twisting of the vascular pedicle raises the possibility that this is baseline for this patient or possibly dysfunctional in nature. Correlate with clinical findings Enlarged prostate with protrusion into the bladder floor. Bladder neoplasm not completely excludable as a result Thick-walled bladder, may indicate cystitis or be due to chronic bladder lumen obstruction related to the above Abnormalities right pectineus muscle, with a 2 cm central low attenuation area. Note that previous exam have a high attenuation focus suspicious for a small pseudoaneurysm. 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 Colonic diverticulosis. No evidence of diverticulitis Gastrostomy in good position Rectal tube in good position Large right and moderate to large left pleural effusions. Resultant compressive pulmonary atelectatic changes or graft edema subcutaneous fat, less severe than was demonstrated on prior 08/17/2019 exam. Jonathan Urias Nov 07, 2019 12:46
[2019-11-07 16:00] VITALS: BP 129/76
--- NOTE | 2019-11-07 18:57 | NUR ---
RESPIRATORY NOTE: Received pt on AC 12, 550VT, 24%, PEEP +5. Pt is trach-dependent w/ a cuffed, Portex 8 tube. Pt obtunded. B/S ovi. rhonchi, sxn small to moderate amounts of thick/thin, pale-yellow to perez-yellow secretions. Vent plugged into red outlet, ambubag at bedside. Pt in no apparent distress at this time. Will continue plan of care.
--- NOTE | 2019-11-07 19:15 | NUR ---
Nurses notes: Received report from BRODIE Chavarria. Pt is seen lying in bed in semi- rivera's position. Hemodialysis on goingg with Brodie Phanfood production manager nurse on bedside. Pt is obtunded and non verbal . With IV site on Right hand intact and patent and infusing well. With TERRENCE permacath dressing changed today. Patient attached to rectal tube patent intact and draining. No any signs of respiratory distress. Attached to vent with settings as ordered. Pt has no signs of facial grimacing and resting and in calm position. No any signs of hypotension noted at this time. Continue to plan of care. Addendum: 11/08/19 at 0140 by Princess Evan RN Nurses notes: RUC with permacath.
--- NOTE | 2019-11-07 19:15 | NUR ---
HAND-OFF: Report given to .PRINCESS DAVEY.
--- NOTE | 2019-11-07 19:45 | NUR ---
Nurses notes: Dialysis done 2L out as per TAMICA Phan. pt is stable. BP-102/69. Continue to plan of care.
[2019-11-07 20:00] VITALS: BP 102/69
[2019-11-07] MEDS: Dyna-Hex 2% Top Sol 2oz TOPIC SCH (20:11)
--- NOTE | 2019-11-07 20:22 | General Progress Note ---
Subjective Allergies: Coded Allergies: No Known Allergies (Unverified , 06/10/19) Subjective above noted NAD on TF non communicative Objective Last 24 Hour Vital Signs Date Time Temp Pulse Resp B/P (MAP) Pulse Ox O2 Delivery O2 Flow Rate FiO2 11/07/19 18:52 58 20 24 11/07/19 16:00 92 11/07/19 16:00 98.2 103 22 129/76 (93) 99 11/07/19 16:00 Mechanical Ventilator 11/07/19 16:00 24 11/07/19 15:30 99 17 24 11/07/19 12:00 100 11/07/19 12:00 24 11/07/19 12:00 98.1 98 19 128/72 (90) 100 11/07/19 12:00 Mechanical Ventilator 11/07/19 11:00 97 18 24 11/07/19 08:00 99.5 90 17 137/72 (93) 100 11/07/19 08:00 Mechanical Ventilator 11/07/19 08:00 90 11/07/19 08:00 24 11/07/19 07:40 90 14 24 11/07/19 04:00 Mechanical Ventilator 11/07/19 04:00 24 11/07/19 04:00 98.9 88 16 116/64 (81) 100 11/07/19 03:25 82 11/07/19 03:05 99 14 24 11/07/19 00:00 24 11/07/19 00:00 Mechanical Ventilator 11/07/19 00:00 98.6 98 16 121/76 (91) 100 11/06/19 23:29 97 11/06/19 23:24 97 14 24 11/06/19 20:47 103 131/82 Intake and Output 11/06/19 11/07/19 19:00 07:00 Intake Total 465 ml 560 ml Output Total 20 ml 30 ml Balance 445 ml 530 ml Free Water 60 ml 110 ml Tube Feeding 405 ml 450 ml Stool Total 20 ml 30 ml # Bowel Movements 1 Laboratory Tests 11/06/19 23:08: POC Whole Blood Glucose 204H 11/07/19 04:51: POC Whole Blood Glucose 187H 11/07/19 12:52: POC Whole Blood Glucose 173H 11/07/19 18:48: POC Whole Blood Glucose 147H Height (Feet): 5 Height (Inches): 10.00 Weight (Pounds): 123 Objective Debilitated AA man NCAT (+) trach coarse BS RR abd less distended, anasarca, (+) GT, (+) rectal tube ext contracted Assessment/Plan Assessment/Plan: Assessment - abdominal distention, due to colonic dysmotility, - colonoscopy negative to hepatic flexure - diarrhea - presumed TF related - abnormal LFT - ? etiology --> HIDA negative and CT negative - Anemia - leukocytosis - stool OB (+) - EGD --> gastritis - Renal failure - Anasarca - resp failure, trach - b/l pleural effusions - dysphagia, GT - encephalopathy, contracted - poor px Recommendations - continue TF - check hepatitis markers - negative - rectal tube - roll side to side as feasible (hard due to severe contractions) - Elevate HOB - f/u labs - PPI - abx - supportive care Ronny Mustafa MD Nov 07, 2019 20:22
[2019-11-08] VITALS: BP 134/79
--- NOTE | 2019-11-08 01:38 | NUR ---
NURSE NOTES: Pt see in bed, sleeping comfortably. Changed pt and reposition. Sponge bath given. Pt has no signs of respiratory distress. Attached to vent with settings as ordered. IV site patent and intact. No signs of pain noted. Call light within reach. Dressing changed noted on Right upper chest permacath changed by the Dialysis Nurse Sylvester. Still bowel movement is watery and liquidy brown in color. No bleeding noted. Continue to plan of care.
[2019-11-08 04:00] VITALS: BP 125/62
[2019-11-08 05:18] LABS: EOSINOPHILS % (AUTO) 0.7 % (0.0-3.0); HEMATOCRIT 29.1 % (42.0-52.0); LYMPHOCYTES % (AUTO) 9.3 % (20.0-45.0); MEAN CORPUSCULAR VOLUME 75 FL (80-99); MONOCYTES % (AUTO) 10.7 % (1.0-10.0); NEUTROPHILS % (AUTO) 78.3 % (45.0-75.0); PLATELET COUNT 627 K/UL (150-450); RED CELL DISTRIBUTION WIDTH 17.8 % (11.6-14.8); WHITE BLOOD COUNT 17.5 K/UL (4.8-10.8)
[2019-11-08] MEDS: NovoLOG Insulin Flexpen SUBQ SCH ×4 (05:22→23:46)
[2019-11-08 05:37] LABS: CALCIUM 9.2 MG/DL (8.5-10.1); CREATININE 3.4 MG/DL (0.55-1.30); PHOSPHORUS 2.5 MG/DL (2.5-4.9); POTASSIUM 3.9 MMOL/L (3.5-5.1)
--- NOTE | 2019-11-08 06:47 | Hematology/Onc Progress Note ---
Assessment/Plan Assessment/Plan Assessment/recs # Anemia due to chronic disease/kidney disease as well, gi bleed + occult + noted --> was on iron in the past, now on hold --> has been started on Epogen sq --> as per renal care --> egd done and shows gastritis --> on ppi --> egd showed gastritis, colo recently done --> hgb 9-->8. 7-->7.6-->9.2-->8.9-->9.2->9.3-->8.8->9.9-->9.2-->8.1-->8.7-->7.9-->8.6-->8.9--> 8.2->9-->9.3->8.9-->9.5-->10.6->9.2-->10->8.9--> 8.3-->8.9-->9.9-->9.3-->9-->9.3->11-->8.6->8.7>9-->8.4-->9.1 --> spep ordered->wnl # Leukocytosis - with multiple infections, VRE UTI, flow is negative --> wbc trend 33-->28-->25->23->22->23->24->17.3-->17-->14->16-->15.6-->14-->14->13 ->19->18->17->22->22->19->17-->18->20-->15-->14->16-->14-->17->18-->17->15-->16- ->17->28->19-->21-->19-->23->15 --> on abx, linezolid and zosyn--> zosyn-->gent-->off-->vanc/zosyn-->cefepime/colistin --> + blood cultures with coag neg staph likely contaminated --> as per id recs --> has ordered a flow cytometry (with pathology) --> does show increased nK cell activity --> JOURDAN 2 and bcr-abl labs ordered (these are send outs)->negative --> plt 585-->613-->649-->669->663-->529-->506-->620-->720 # Elevated ddimer on admission --> duplex lower legs neg for dvt # Respiratory failure --> per pulm, s/p trach --> COVID 19 test negative x 2 # Hyperlipidemia --> statin po # Dysphagia s/p gtube with nepro --> per gi # ESRD with r fem julito --> hd as per renal # Dvt ppx heparin sq Appreciate consultation and matt Rn Subjective Allergies: Coded Allergies: No Known Allergies (Unverified , 06/10/19) All Systems: reviewed and negative except above Subjective 08/15 meds noted, no bleeding, hgb 8.8, wbc 28, path flow pending 08/16 flow pending dw pathologist, results pending, wbc 25, hgb 9 08/17 labs reviewed, meds reviewed, meds noted, no night sweats 08/19 remains obtunded, on vent/trach, no bleeding wbc 21.7 08/20 labs have been reviewed, no bleeding, wbc still elev, path reviewed 08/21 labs are noted, no bleeding, on vent, wbc better 08/22 labs noted, no bleeding, meds reviewed, wbc 24 hgb 7.6 08/23 vent, off abx, c diff negative, h/h stable 08/24 labs reviewed, on abx, wbc 17, hgb 8.9, no hemolysis 08/26 reviewed flow and is negative for leukemia, matt rn 08/27 meds reviewed, no night sweats, matt rn, no major bleeding 08/28 meds reivewed, labs noted 08/29 wbc is stable, approx 15, hgb 8.8, no hemolysis 08/30 labs are noted, is for colo today, hgb 9.9 08/31 right fem julito in place, unchanged, hgb 9.2, gi aware 09/01 labs noted, hgb 8.8, plt >600, no bleeding 09/02 labs noted, no bleeding, with elev wbc still, no new changes 09/03 meds are noted, no bleeding, labs reviewed hgb 8.6 09/04 no major events, hd as per renal, abx, no bleeding hgb low 09/05 labs are noted, no bleeding, meds have been reviewed 09/06 no new labs no hemolysis, cbc is noted, no bleeding 09/07 meds reviewed, no bleeding, matt rn, permacath functioning well 09/09 meds reviewed, wbc still elevated, as per id recs, cbc noted 09/10 is obtunded, with gutbe in place, labs reviewed 09/11 obtunded, as per id, observe now off abx, labs noted, wbc 19 09/12 cbc is pending, remains on epogen, also off abx 09/13 labs reviewed, no bleeding, elev wbc, no night sweats 09/14 meds noted, no bleeding, wbc 19, hgb 9.5, no night sweats 09/21 obtunded, remains on vent, labs noted, no bleeding, hgb 8.9 09/22 obtunded, labs noted, no bleeding, on vent, unchanged 09/23 unchanges, wbc remains elevated 20k, on abx, on vent 09/24 labs have been reviewed, no bleeding, wbc 15, may need abx 09/25 formula gtube changed, labs noted, remains obtunded, hgb 9.3 09/26 labs have been reviewed, no bleeding, matt rn, no night sweats 09/27 meds reviewed, no bleeding, wbc 14, on abx, remains obtunded 09/28 remains obtunded, no bleeding, wbc better, hgb 8.9, no hemolysis, plt 506 09/30 on colisitn, wbc elevated, cefepime added per id, hgb stable 10/01 labs reviewed, no bleeding, matt rn, no major events noted, wbc 14, hgb 10.6 10/02 labs have been noted, hgb 9.2, wbc 17, on abx, matt wright 10/03 continue on tube feeds, no bleeding, on vent, wbc remains elevated 10/04 remains ibtunded, is on a mechanical ventilator with tube feeds noted 10/05 labs are noted, hgb 8.6, wbc remains elevated, have ordered for spep 10/07 obtunded on vent, with gtube feeds, labs reviewed, matt wright 10/08 labs are noted, on vent/trach, hgb 10.2, remains obtunded 10/09 labns noted, wbc 15, hgb 8.9, remains altered, on tfs 10/10 labs noted, holding tube feeds, matt rn, hg stable 8.3 currently 10/11 remains on tfs, supportive care, labs noted, no bleeding 10/12 remains obtunded, hgb 8.9, no hemolysis is seen 10/14 labs reviewed, no bleeding, pending potential hd if rn available 10/15 is on vent, with gtube, labs reviewed, no bleeding, to get hd soon 10/16 remains on vent, matt rn at bedside, wbc 15, abx prn, plt also higher, will monitor 10/17 on vent, continue on tube feeds via gtube, labs improved 10/18 labs noted, remains on vent, and tube feeds, no major changes 10/19 nad, no bleeding, labs reviewed, no night sweats, bp elevated, cards aware 10/21 labs pending, with gtube running, on mec vent, abx off 10/22 labs reviewed, no major changes, wbc 18, plt 791k, on gtube feeds 10/23 labs reviewed, meds noted, on epogen and lovenox sq, obtunded, is nv 9.16 labs are noted, wbc 28, hgb 8.6, no hemolysis is noted 10/27 labs reviewed, on mech vent, on gtube feeds, no bleeding wbc 21 10/28 labs noted, wbc 19, plt remains elevated, hd as per renal Dr. Frank 10/29 obtunded, gt feedings on hold, wbc 19, hgb 9, no bleeding 10/30 labs reviewed, no bleeding, wbc 21, hgb 9, hd as per renal care 10/31 labs are noted, wbc 19, hgb 8.4, on vent, obtunded 11/01 obtunded state, no bleeding, meds reviewed, on heparin started today, matt wright 11/02 nv, trach, no bleeding, wbc has increased likely due to infection 11/03 is off abx, no bleeding, meds noted, no hemolysis seen, wbc 15 11/04 meds noted, no bleeding, matt wright 11/06 no residual, labs reviewed, no night sweats, no hemoptysis 11/07 labs are noted, wbc 18, hgb 9, no hemolysis Objective Objective Current Medications Medications (Trade) Dose Ordered Sig/Leonel Route PRN Reason Start Time Stop Time Status Last Admin Dose Admin Acetaminophen (Tylenol) 650 mg Q6H PRN GT Temp >100.5 10/21/19 20:45 11/20/19 20:44 11/06/19 04:43 Chlorhexidine Gluconate (Felipa-Hex 2%) 1 applic DAILY@2000 TOPIC 09/12/19 20:00 12/11/19 19:59 11/07/19 20:11 Clonidine HCl (Catapres Tab) 0.1 mg Q4H PRN GT For High Blood Pressure 09/09/19 12:30 12/08/19 05:29 09/15/19 04:10 Epoetin Andreas (Epoetin Andreas(ESRD on dialysis)) 8,000 unit WED-WED-WED SUBQ 10/25/19 21:00 01/23/20 20:59 11/06/19 20:47 Famotidine (Pepcid) 20 mg DAILY GT 08/30/19 09:00 11/28/19 08:59 11/07/19 09:16 Heparin Sodium (Porcine) (Heparin 5000 units/ml) 5,000 units EVERY 12 HOURS SUBQ 11/02/19 09:00 12/17/19 08:59 11/07/19 20:13 Heparin Sodium (Porcine) (Heparin Sod 1000 units/ml 10ml) 2,000 unit ONCE PRN IV FOR HD USE ONLY 11/07/19 12:00 11/09/19 23:59 Heparin Sodium (Porcine) (Heparin) 1,000 unit POSTHD PRN INJ FOR HD USE ONLY 11/07/19 12:00 11/09/19 23:59 Insulin Aspart (NovoLOG) Q6HR SUBQ 11/08/19 00:00 02/06/20 00:00 11/08/19 05:22 Lactobacillus Acidophilus (Culturelle) 1 tab EVERY 12 HOURS GT 10/03/19 21:00 12/13/19 17:59 11/07/19 20:11 Loperamide HCl (Imodium) 2 mg Q6H PRN NG Diarrhea 10/15/19 07:45 11/14/19 07:44 Sodium Chloride 500 ml @ 999 mls/hr Q31M PRN IV sbp<90 10/28/19 21:30 11/27/19 21:29 Sodium Chloride 1,000 ml @ 500 mls/hr Q2H PRN IVLG sbp<90 during hd 11/07/19 12:00 11/09/19 23:59 Zinc Oxide (Zinc Oxide) 1 applic EVERY 12 HOURS TOPIC 10/03/19 09:00 11/08/19 17:59 11/07/19 20:11 Last 24 Hour Vital Signs Date Time Temp Pulse Resp B/P (MAP) Pulse Ox O2 Delivery O2 Flow Rate FiO2 11/08/19 04:04 Mechanical Ventilator 11/08/19 04:00 111 11/08/19 04:00 24 11/08/19 04:00 99.0 110 17 125/62 (83) 100 11/08/19 02:48 110 17 24 11/08/19 00:00 24 11/08/19 00:00 98.1 106 18 134/79 (97) 99 11/08/19 00:00 Mechanical Ventilator 11/08/19 00:00 107 11/07/19 23:31 109 15 24 11/07/19 20:00 97.9 95 16 102/69 (80) 95 11/07/19 20:00 Mechanical Ventilator 11/07/19 20:00 104 11/07/19 20:00 24 11/07/19 18:52 58 20 24 11/07/19 16:00 92 11/07/19 16:00 98.2 103 22 129/76 (93) 99 11/07/19 16:00 Mechanical Ventilator 11/07/19 16:00 24 11/07/19 15:30 99 17 24 11/07/19 12:00 100 11/07/19 12:00 24 11/07/19 12:00 98.1 98 19 128/72 (90) 100 11/07/19 12:00 Mechanical Ventilator 11/07/19 11:00 97 18 24 11/07/19 08:00 99.5 90 17 137/72 (93) 100 11/07/19 08:00 Mechanical Ventilator 11/07/19 08:00 90 11/07/19 08:00 24 11/07/19 07:40 90 14 24 11/07/19 04:00 Mechanical Ventilator 11/07/19 04:00 24 11/07/19 04:00 98.9 88 16 116/64 (81) 100 11/07/19 03:25 82 11/07/19 03:05 99 14 24 11/07/19 00:00 24 11/07/19 00:00 Mechanical Ventilator 11/07/19 00:00 98.6 98 16 121/76 (91) 100 11/06/19 23:29 97 11/06/19 23:24 97 14 24 11/06/19 20:47 103 131/82 11/06/19 20:00 24 11/06/19 20:00 98.8 106 14 131/82 (98) 100 11/06/19 20:00 Mechanical Ventilator 11/06/19 19:38 107 17 24 11/06/19 19:07 104 11/06/19 16:00 Mechanical Ventilator 11/06/19 16:00 24 11/06/19 16:00 98 11/06/19 16:00 98.6 106 16 122/75 (91) 99 11/06/19 15:14 100 16 24 11/06/19 12:00 24 11/06/19 12:00 83 11/06/19 12:00 98.2 85 18 125/51 (75) 100 11/06/19 12:00 Mechanical Ventilator 11/06/19 11:07 82 16 24 11/06/19 08:15 106 134/74 11/06/19 08:15 134/74 11/06/19 08:00 97.1 106 18 134/74 (94) 100 11/06/19 08:00 93 11/06/19 08:00 Mechanical Ventilator 11/06/19 08:00 24 11/06/19 07:22 81 13 24 Intake and Output 11/07/19 11/08/19 18:59 06:59 Intake Total 505 ml 595 ml Output Total 2130 ml Balance -1625 ml 595 ml Free Water 100 ml 100 ml Tube Feeding 405 ml 495 ml Stool Total 130 ml Hemodialysis UF 2000 ml # Bowel Movements 1 Labs Test 11/05/19 07:29 11/05/19 11:39 11/05/19 16:52 11/05/19 23:24 White Blood Count 15.0 K/UL (4.8-10.8) Red Blood Count 3.94 M/UL (4.70-6.10) Hemoglobin 9.1 G/DL (14.2-18.0) Hematocrit 29.6 % (42.0-52.0) Mean Corpuscular Volume 75 FL (80-99) Mean Corpuscular Hemoglobin 23.2 PG (27.0-31.0) Mean Corpuscular Hemoglobin Concent 30.9 G/DL (32.0-36.0) Red Cell Distribution Width 18.3 % (11.6-14.8) Platelet Count 586 K/UL (150-450) Mean Platelet Volume 5.6 FL (6.5-10.1) Neutrophils (%) (Auto) 75.4 % (45.0-75.0) Lymphocytes (%) (Auto) 11.5 % (20.0-45.0) Monocytes (%) (Auto) 8.6 % (1.0-10.0) Eosinophils (%) (Auto) 3.6 % (0.0-3.0) Basophils (%) (Auto) 0.9 % (0.0-2.0) Sodium Level 135 MMOL/L (136-145) Potassium Level 3.8 MMOL/L (3.5-5.1) Chloride Level 98 MMOL/L (98-107) Carbon Dioxide Level 28 MMOL/L (21-32) Anion Gap 9 mmol/L (5-15) Blood Urea Nitrogen 44 mg/dL (7-18) Creatinine 2.6 MG/DL (0.55-1.30) Estimat Glomerular Filtration Rate 24.0 mL/min (>60) Glucose Level 195 MG/DL (74-106) Calcium Level 9.7 MG/DL (8.5-10.1) POC Whole Blood Glucose 132 MG/DL (74-106) 144 MG/DL (74-106) 176 MG/DL (74-106) Test 11/06/19 05:17 11/06/19 10:50 11/06/19 12:45 11/06/19 17:20 POC Whole Blood Glucose 198 MG/DL (74-106) 131 MG/DL (74-106) White Blood Count 17.0 K/UL (4.8-10.8) Red Blood Count 4.25 M/UL (4.70-6.10) Hemoglobin 9.6 G/DL (14.2-18.0) Hematocrit 31.8 % (42.0-52.0) Mean Corpuscular Volume 75 FL (80-99) Mean Corpuscular Hemoglobin 22.7 PG (27.0-31.0) Mean Corpuscular Hemoglobin Concent 30.2 G/DL (32.0-36.0) Red Cell Distribution Width 18.4 % (11.6-14.8) Platelet Count 624 K/UL (150-450) Mean Platelet Volume 5.8 FL (6.5-10.1) Neutrophils (%) (Auto) 69.9 % (45.0-75.0) Lymphocytes (%) (Auto) 13.5 % (20.0-45.0) Monocytes (%) (Auto) 8.9 % (1.0-10.0) Eosinophils (%) (Auto) 6.3 % (0.0-3.0) Basophils (%) (Auto) 1.4 % (0.0-2.0) Sodium Level 132 MMOL/L (136-145) Potassium Level 4.3 MMOL/L (3.5-5.1) Chloride Level 96 MMOL/L (98-107) Carbon Dioxide Level 25 MMOL/L (21-32) Anion Gap 11 mmol/L (5-15) Blood Urea Nitrogen 62 mg/dL (7-18) Creatinine 3.6 MG/DL (0.55-1.30) Estimat Glomerular Filtration Rate 16.5 mL/min (>60) Glucose Level 125 MG/DL (74-106) Calcium Level 9.7 MG/DL (8.5-10.1) Test 11/06/19 23:08 11/07/19 04:51 11/07/19 12:52 11/07/19 18:48 POC Whole Blood Glucose 204 MG/DL (74-106) 187 MG/DL (74-106) 173 MG/DL (74-106) 147 MG/DL (74-106) Test 11/07/19 23:23 11/08/19 03:05 11/08/19 05:17 POC Whole Blood Glucose 216 MG/DL (74-106) 220 MG/DL (74-106) White Blood Count 17.5 K/UL (4.8-10.8) Red Blood Count 3.90 M/UL (4.70-6.10) Hemoglobin 9.0 G/DL (14.2-18.0) Hematocrit 29.1 % (42.0-52.0) Mean Corpuscular Volume 75 FL (80-99) Mean Corpuscular Hemoglobin 23.1 PG (27.0-31.0) Mean Corpuscular Hemoglobin Concent 30.8 G/DL (32.0-36.0) Red Cell Distribution Width 17.8 % (11.6-14.8) Platelet Count 627 K/UL (150-450) Mean Platelet Volume 5.9 FL (6.5-10.1) Neutrophils (%) (Auto) 78.3 % (45.0-75.0) Lymphocytes (%) (Auto) 9.3 % (20.0-45.0) Monocytes (%) (Auto) 10.7 % (1.0-10.0) Eosinophils (%) (Auto) 0.7 % (0.0-3.0) Basophils (%) (Auto) 1.0 % (0.0-2.0) Sodium Level 134 MMOL/L (136-145) Potassium Level 3.9 MMOL/L (3.5-5.1) Chloride Level 97 MMOL/L (98-107) Carbon Dioxide Level 25 MMOL/L (21-32) Anion Gap 12 mmol/L (5-15) Blood Urea Nitrogen 56 mg/dL (7-18) Creatinine 3.4 MG/DL (0.55-1.30) Estimat Glomerular Filtration Rate 17.6 mL/min (>60) Glucose Level 195 MG/DL (74-106) Calcium Level 9.2 MG/DL (8.5-10.1) Phosphorus Level 2.5 MG/DL (2.5-4.9) Height (Feet): 5 Height (Inches): 10.00 Weight (Pounds): 123 Objective Physical Exam General Appearance: nad, Chronically Ill Head: normocephalic Eyes: right eye PERRL - Will not open left eye ENT: moist mucus membranes Neck: other - submandibular mass R, fairly rigid with resistance to rotation to L, tracheotomy Respiratory: decreased breath sounds, crackles, other - pacemaker, vent+ Cardiovascular: regular rate, rhythm, edema - anasarca Gastrointestinal: non tender, distended, other - G tube Genitourinary: other ++rectal tube Musculoskeletal: other - Contractures all extremities Neurologic: sensory intact, motor weakness, responsive Psychiatric: other Skin: Decubitus/Ulcer - Stage III right elbow, stage III left elbow, stage II sacrum, stage III scrotum, warm/dry Fitz Campos MD Nov 08, 2019 06:47
--- NOTE | 2019-11-08 07:10 | NUR ---
NURSE HAND-OFF REPORT: Important Events on Shift: Hemodialysis 2L- out, WBC- 17.5 Patient Status: Stable Diet: GT tube, Nephro at 45cc/hr. x 20 hrs Pending Orders: None Pending Results/Labs:None Pending MD notification: None Latest Vital Signs: Temperature 99.0 , Pulse 110 , B/P 125 /62 , Respiratory Rate 17 , O2 SAT 100 , Mechanical Ventilator, O2 Flow Rate 15.0 . Vital Sign Comment: WNL EKG Rhythm: V-Paced Rhythm change?: N MD Notified?: N - MD Response: Latest Dleacruz Fall Score: 70 Fall Risk: High Risk Safety Measures: Call light Within Reach, Bed Alarm Zone 1, Side Rails Side Rails x3, Bed position Low and Locked. Fall Precautions: Yellow Socks Door Sign Patient Fall Education Report given to [TAMICA Johnson].
--- NOTE | 2019-11-08 07:15 | NUR ---
NURSE NOTES: Received patient from TAMICA Rob under the care of Dr. Ramirez for the admitting dx. of Renal failure and GI bleed. Full code and NKDA noted. Noted with KPC sputum, VRE and MDR of rectum, and MRSA of nares. Will continue to monitor.
[2019-11-08 08:00] VITALS: BP 115/61
[2019-11-08] MEDS: Lactobacillus-GG tablet GT SCH ×2 (09:21→20:47)
[2019-11-08] MEDS: Heparin 5000 units/ml inj SUBQ SCH ×2 (09:23→20:48)
[2019-11-08] MEDS: Zinc Oxide Oint 2oz TOPIC SCH (09:23)
--- NOTE | 2019-11-08 11:00 | NUR ---
NURSE NOTES: Patient family member visited at bedside. Instructed regarding isolation precaution, verbalized understanding. Will continue to monitor.
[2019-11-08 12:00] VITALS: BP 97/63
--- NOTE | 2019-11-08 12:45 | Surgery Progress Note ---
Surgery Progress Note Subjective Procedure Performed Right femoral temporary hemodialysis catheter removal Additional Comments leukocytosis persistent exam stable Objective Last 24 Hour Vital Signs Date Time Temp Pulse Resp B/P (MAP) Pulse Ox O2 Delivery O2 Flow Rate FiO2 11/08/19 12:00 99.5 114 15 97/63 (74) 100 11/08/19 12:00 24 11/08/19 12:00 Mechanical Ventilator 11/08/19 10:54 113 16 24 11/08/19 08:00 107 11/08/19 08:00 Mechanical Ventilator 11/08/19 08:00 98.2 105 18 115/61 (79) 100 11/08/19 08:00 24 11/08/19 07:25 109 16 24 11/08/19 04:04 Mechanical Ventilator 11/08/19 04:00 111 11/08/19 04:00 24 11/08/19 04:00 99.0 110 17 125/62 (83) 100 11/08/19 02:48 110 17 24 11/08/19 00:00 24 11/08/19 00:00 98.1 106 18 134/79 (97) 99 11/08/19 00:00 Mechanical Ventilator 11/08/19 00:00 107 11/07/19 23:31 109 15 24 11/07/19 20:00 97.9 95 16 102/69 (80) 95 11/07/19 20:00 Mechanical Ventilator 11/07/19 20:00 104 11/07/19 20:00 24 11/07/19 18:52 58 20 24 11/07/19 16:00 92 11/07/19 16:00 98.2 103 22 129/76 (93) 99 11/07/19 16:00 Mechanical Ventilator 11/07/19 16:00 24 11/07/19 15:30 99 17 24 I&O Intake and Output 11/07/19 11/08/19 19:00 07:00 Intake Total 600 ml 500 ml Output Total 2100 ml Balance -1500 ml 500 ml Free Water 150 ml 50 ml Tube Feeding 450 ml 450 ml Stool Total 100 ml Hemodialysis UF 2000 ml Dressing: other Wound: other Cardiovascular: RSR Respiratory: decreased breath sounds Abdomen: soft, non-tender, present bowel sounds Extremities: no tenderness, no cyanosis Laboratory Tests Test 11/07/19 12:52 11/07/19 18:48 11/07/19 23:23 11/08/19 03:05 POC Whole Blood Glucose 173 MG/DL (74-106) H 147 MG/DL (74-106) H 216 MG/DL (74-106) H White Blood Count 17.5 K/UL (4.8-10.8) H Red Blood Count 3.90 M/UL (4.70-6.10) L Hemoglobin 9.0 G/DL (14.2-18.0) L Hematocrit 29.1 % (42.0-52.0) L Mean Corpuscular Volume 75 FL (80-99) L Mean Corpuscular Hemoglobin 23.1 PG (27.0-31.0) L Mean Corpuscular Hemoglobin Concent 30.8 G/DL (32.0-36.0) L Red Cell Distribution Width 17.8 % (11.6-14.8) H Platelet Count 627 K/UL (150-450) H Mean Platelet Volume 5.9 FL (6.5-10.1) L Neutrophils (%) (Auto) 78.3 % (45.0-75.0) H Lymphocytes (%) (Auto) 9.3 % (20.0-45.0) L Monocytes (%) (Auto) 10.7 % (1.0-10.0) H Eosinophils (%) (Auto) 0.7 % (0.0-3.0) Basophils (%) (Auto) 1.0 % (0.0-2.0) Sodium Level 134 MMOL/L (136-145) L Potassium Level 3.9 MMOL/L (3.5-5.1) Chloride Level 97 MMOL/L (98-107) L Carbon Dioxide Level 25 MMOL/L (21-32) Anion Gap 12 mmol/L (5-15) Blood Urea Nitrogen 56 mg/dL (7-18) H Creatinine 3.4 MG/DL (0.55-1.30) H Estimat Glomerular Filtration Rate 17.6 mL/min (>60) Glucose Level 195 MG/DL (74-106) H Calcium Level 9.2 MG/DL (8.5-10.1) Phosphorus Level 2.5 MG/DL (2.5-4.9) Test 11/08/19 05:17 11/08/19 12:01 POC Whole Blood Glucose 220 MG/DL (74-106) H Pending Plan Problems: (1) Anemia (2) Hyponatremia (3) Leukocytosis Assessment & Plan: Tracheostomy, left chest pacemaker are again demonstrated. There is bilateral interstitial and airspace disease and bilateral pleural fluid again demonstrated. This appears more severe than on the prior study. Bilateral interstitial and airspace infiltrates versus edema. Bilateral pleural effusions Leukocytosis, anemia, tachycardia, abnormal labs. Wound evaluated and likely etiology of patient's sepsis. Leukocytosis etiology work-up antibiotics per infectious disease Appreciate nephrology input transfuse with dialysis We will follow with recommendations thank you allowing participation's care plan HD access temp HD discussed with medical teams line okay HD as per renal persistent leukocytosis flow cyto noted improving trending down right fem line removed wbc fluctuating h/h stable lft's elevated There is a right pleural effusion Gallbladder demonstrates tiny wall adherent nonmobile echogenic foci, some possible mural calcifications, and comet tail artifact in the anterior wall. Patient unable to report sonographic Kent's sign. Common bile duct measures 4 mm in diameter. No intrahepatic biliary ductal dilatation. Liver demonstrates normal echogenicity, no focal abnormality. There is some surface nodularity. Portal vein and hepatic veins are patent. Pancreas is incompletely visualized due to overlying bowel gas, visualized portions are unremarkable. Spleen is unremarkable. Left kidney measures 8.7 cm in length. Right kidney measures 8.9 cm length. Both kidneys demonstrate increased echogenicity. There is no hydronephrosis. No focal abnormality . Abdominal aorta is partially obscured by bowel gas, visualized portions are non-aneurysmal . A gastrostomy is noted Impression: Tiny wall adherent nonmobile gallbladder echogenic foci, may reflect wall adherent calculi, small polyps, and/or pleural calcifications. Anterior wall comet tail artifact suggests foci of adenomyomatosis. Normal caliber common bile duct Possible hepatic surface nodularity, could indicate cirrhotic change Echogenic kidneys, consistent with medical renal disease. No hydronephrosis Right pleural effusion Gastrostomy Note nonvisualization of portions of the pancreas and abdominal aorta HIDA NEGATIVE trend labs (4) Ventilator dependent (5) Right lower lobe pneumonia (6) Hypokalemia (7) Hyperkalemia (8) Anasarca (9) Decubitus skin ulcer Assessment & Plan: pt presented on admission with generalized edemae.Skin assessed under tracheostomy and no areas of concerns noted. GT Insertion is marginally erythematous with small amt slough at stoma. Unstageable Pressure Injury R elbow. Base of wound is 100% yellow slough,Borders are erythematous. Wound oozing small amt haemopurulent exudate.Darker skin tone without elevation in skin temp or erythema periwound. Pt's penis and scrotum are grossly edematous and enlarged and weeping serous exudate from numerous sites both from penis and scrotum. Two small open wounds noted at base of at base of shaft of penis ,and contreras aspect of scrotum. Both wounds oozing large amt sanguineous and serosanguineous exudate. Multiple open wounds with Biofilm at base of each wounds noted to contreras/lateral,inferior and posterior aspects of scrotum. These wounds noted to be oozing moderate amts of serosanguineous exudate. Hypertrophic scar with scattered areas of hyperpigmentation noted to Sacrum. DTPI noted to L Buttocks (L)7cm x (W)9cm. Base of wound is purple and indurated.Darker skin tone without erythema,induration or fluctuance R and L ischial tuberosities. Both heels are boggy with non-blanchable erythema. potential decline given chronic illness Tx.Plan: Cleanse wound R elbow with Saline. Apply TheraHoney, Apply Moisture Barrier Paste periwound. Cover with Optifoam drsg.Change Daily and prn. Wash GT site with soap and water.Pat dry. Apply Zinc Oxide Paste to GT site Daily. Leave Open to Air. Apply Zinc Oxide Paste to entire Scrotum, Place ABD pads to R and L lateral, and posterior aspects of scrotum TWICE daily. Apply Cavilon Skin Barrier to malleoli and both Heels. Cover each site with Optifoam drsgs. Change every 7 days and prn. Reposition at least every 2hours or as tolerated. Off-load heels with Pillows. APM/BECCA Mattress overlay. (10) Malnutrition Assessment & Plan: DAILY ESTIMATED NEEDS: Needs based on Renal, critical care, wound/ 61kg 22-30 kcals/kg 6028-7914 total kcals 1.25-2 g protein/kg 76-122 g total protein Fluid per MD, now on HD NUTRITION DIAGNOSIS: * Swallowing difficulty R/T respiratory failure, dysphagia as evidenced by trach/vent dep, PEG dep * Increased kcal/prot needs R/T wound healing as evidenced by admitted w/ multiple pressure injuries including full thickness wounds at junction of Shaft of penis, dorsal scrotum, R elbow, and DTPI @ L buttocks. CURRENT TF:Osmolite 1.2 @ 60ml/hr x 20 hrs + Garo BID ENTERAL NUTRITION RECOMMENDATIONS: Vital AF 1.2 @ 60ml/hr x 20 hrs to provide 1200ml, 1440kcal, 90g prot, 973ml free water * Rec 20 hr run time for GI rest. -> W/ improved GI status, rec Vital AF 1.2, an elemental and carb controlled TF -> monitor lytes and renal fxn closely, monitor need for renal TF -> TF @ goal will provide 1642mg K and 2025mg Phos -> HOB over 30 degrees/ water flush per -------- Trial of Osmolite 1.2 continue for now- Goal of 60ml/hr for 20 hrs (4 hrs bowel rest) to provide 1200ml, 1440 kcal, 67g pro, 984ml free H2O, -> Rec to add prosource 1 pack daily (11g pro) to better meet est pro needs. -> Monitor BG, K closely. Pt would require increased insulin coverage as TF at goal would provide 56g more carbs per day. ADDITIONAL RECOMMENDATIONS: * Per SNF: HT=63" IH=894 lbs (vs EMR wt of 166lbs) -> obtain re-calibrated bedscale wt, rec daily wt monitoring * Wound healing: con't Nephrovite + Garo BID/ Vit C dosing per Nephro * Monitor renal fxn and lytes closely w/ non-renal TF ->K low, phos wnl;updated mag level; rec increased insulin w/ BG labs * Daily wts w/ drop to 118-20 lbs, rec to recalibrate for accurate CBW * Consider DC Miralax if medically appropriate: +rectal tube (11) Uremia (12) CKD (chronic kidney disease) stage 5, GFR less than 15 ml/min (13) Colon distention Assessment & Plan: discussed with GI likely functional as having lots of loose bm rectal tube kub f/u s/p colonoscopy - findings reviewed with GI improved cont diet as tolerated repeat KUB Marked distention of the sigmoid colon. 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 No evidence of bowel wall thickening or pneumatosis 12 mm focus of contrast enhancement in the right pectineus muscle. While nonspecific in appearance, appearance raises concern for a possible pseudoaneurysm. Ill- defined thickening of the pectus medius muscle could indicate some intramuscular hemorrhage. The above findings were phoned to Dr. Urias at the time of interpretation Large bilateral pleural effusions Hazy pulmonary parenchymal opacities as well as dense consolidative opacities most likely represent pulmonary edema, but could represent pneumonia Evidence of anasarca elsewhere, with generalized edema of the subcutaneous fat Bladder wall thickening, raises concern for cystitis. Avalos catheter in place Colonic diverticulosis. No evidence of diverticulitis. Tracheostomy Pacemaker Gastrostomy Gastrostomy again demonstrated in satisfactory position. The stomach is otherwise unremarkable. The distal esophagus and duodenum are unremarkable. Ingested contrast reaches the colon. No small bowel distention or small bowel wall thickening. Interim placement of a rectal tube. There are a few colonic diverticula. No definite evidence of acute diverticulitis. The appendix is prominent in caliber, as previously No free or loculated intraperitoneal gas or fluid is evident. Again demonstrated is marked gaseous distention of the sigmoid colon which measures up to 12.6 cm in diameter, with the proximal aspect located laterally to the distal aspect, and caliber transition in the mesenteric root of both entry points. However, there is stool within the proximal portion which appears to be at least partially contrast opacified, and no definite persisting of the vascular pedicle demonstrated. The liver, gallbladder, bile ducts, pancreas, spleen, adrenals, kidneys are unremarkable. There are accessory splenules demonstrated. No retroperitoneal or mesenteric mass or adenopathy. No pelvic mass or adenopathy. The prostate is enlarged and protrudes into the inferior bladder. The bladder is thick-walled. Previously demonstrated Avalos catheter has been removed. Again demonstrated is a large right pleural effusion and a moderate to large left pleural effusion. Again demonstrated are compressive atelectatic changes of significant portions of both lower lobes. Pacemaker wires are seen within the heart. Previously demonstrated high attenuation focus within the right pectineus muscle is not evident. However, there is a low-attenuation area which measures 2 cm diameter centrally which is not evident previously. There is diffuse edema of the subcutaneous fat. This is less severe than was demonstrated previously. There are degenerative proliferative changes of the lumbar spine. Impression: Abnormal configuration of the sigmoid colon, with marked distention of a sigmoid, inversion of the relationships of the proximal and descending colon, and evidence of immediately apposed transition point raises concern for sigmoid volvulus. However, similarity to the prior exam, presence of what appears to be contrast opacified stool within the dilated segment, and lack of evidence of twisting of the vascular pedicle raises the possibility that this is baseline for this patient or possibly dysfunctional in nature. Correlate with clinical findings Enlarged prostate with protrusion into the bladder floor. Bladder neoplasm not completely excludable as a result Thick-walled bladder, may indicate cystitis or be due to chronic bladder lumen obstruction related to the above Abnormalities right pectineus muscle, with a 2 cm central low attenuation area. Note that previous exam have a high attenuation focus suspicious for a small pseudoaneurysm. 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 Colonic diverticulosis. No evidence of diverticulitis Gastrostomy in good position Rectal tube in good position Large right and moderate to large left pleural effusions. Resultant compressive pulmonary atelectatic changes or graft edema subcutaneous fat, less severe than was demonstrated on prior 08/17/2019 exam. Jonathan Urias Nov 08, 2019 12:45
--- NOTE | 2019-11-08 13:19 | NUR ---
CASE MANAGEMENT: REVIEW SI: FAILURE TO THRIVE . ESRD on HD . ANEMIA T 99.5 HR 114 RR 15 BP 97/63 SAT 100% FIO2 24 17.5 H/H 9.0/29.1 NA 134 BUN 56 CR 3.4 GLUCOSE 220 IS: EPOETIN SUBQ MWF HEPARIN SUBQ Q12HR LACTOBACILLUS GT Q12HR HD PER RENAL STEP DOWN UNIT STATUS DCP: PLACEMENT PENDING. HEALTH PLAN ASSISTING WITH PLACEMENT
--- NOTE | 2019-11-08 13:47 | Nephrology Progress Note ---
Assessment/Plan Plan Septic Shock -Restarted IV Abx per ID. ESRD - HD TTS + IVF boluses PRN. Anemia of CKD -TUYET. Subjective Subjective Obtunded. Objective Objective Last 24 Hour Vital Signs Date Time Temp Pulse Resp B/P (MAP) Pulse Ox O2 Delivery O2 Flow Rate FiO2 11/08/19 12:00 99.5 114 15 97/63 (74) 100 11/08/19 12:00 24 11/08/19 12:00 Mechanical Ventilator 11/08/19 10:54 113 16 24 11/08/19 08:00 107 11/08/19 08:00 Mechanical Ventilator 11/08/19 08:00 98.2 105 18 115/61 (79) 100 11/08/19 08:00 24 11/08/19 07:25 109 16 24 11/08/19 04:04 Mechanical Ventilator 11/08/19 04:00 111 11/08/19 04:00 24 11/08/19 04:00 99.0 110 17 125/62 (83) 100 11/08/19 02:48 110 17 24 11/08/19 00:00 24 11/08/19 00:00 98.1 106 18 134/79 (97) 99 11/08/19 00:00 Mechanical Ventilator 11/08/19 00:00 107 11/07/19 23:31 109 15 24 11/07/19 20:00 97.9 95 16 102/69 (80) 95 11/07/19 20:00 Mechanical Ventilator 11/07/19 20:00 104 11/07/19 20:00 24 11/07/19 18:52 58 20 24 11/07/19 16:00 92 11/07/19 16:00 98.2 103 22 129/76 (93) 99 11/07/19 16:00 Mechanical Ventilator 11/07/19 16:00 24 11/07/19 15:30 99 17 24 Intake and Output 11/07/19 11/08/19 18:59 06:59 Intake Total 505 ml 595 ml Output Total 2130 ml Balance -1625 ml 595 ml Free Water 100 ml 100 ml Tube Feeding 405 ml 495 ml Stool Total 130 ml Hemodialysis UF 2000 ml # Bowel Movements 1 Laboratory Tests 11/07/19 18:48: POC Whole Blood Glucose 147H 11/07/19 23:23: POC Whole Blood Glucose 216H 11/08/19 03:05: White Blood Count 17.5H, Red Blood Count 3.90L, Hemoglobin 9.0L, Hematocrit 29.1L, Mean Corpuscular Volume 75L, Mean Corpuscular Hemoglobin 23.1L, Mean Corpuscular Hemoglobin Concent 30.8L, Red Cell Distribution Width 17.8H, Platelet Count 627H, Mean Platelet Volume 5.9L, Neutrophils (%) (Auto) 78.3H, Lymphocytes (%) (Auto) 9.3L, Monocytes (%) (Auto) 10.7H, Eosinophils (%) (Auto) 0.7, Basophils (%) (Auto) 1.0, Sodium Level 134L, Potassium Level 3.9, Chloride Level 97L, Carbon Dioxide Level 25, Anion Gap 12, Blood Urea Nitrogen 56H, Creatinine 3.4H, Estimat Glomerular Filtration Rate 17.6, Glucose Level 195H, Calcium Level 9.2, Phosphorus Level 2.5 11/08/19 05:17: POC Whole Blood Glucose 220H 11/08/19 12:01: POC Whole Blood Glucose [Pending] Height (Feet): 5 Height (Inches): 10.00 Weight (Pounds): 123 Objective Clammy, diaphoretic CV RR Trach clean Lungs CTA Perma Cath RIJ. Abd SNT. BS + E No CCE Barely responsive Erica Pichardo MD Nov 08, 2019 13:46
[2019-11-08] MEDS: Acetaminophen 650mg/20.3ml GT PRN (15:38)
[2019-11-08 16:00] VITALS: BP 122/73
--- NOTE | 2019-11-08 16:00 | NUR ---
NURSE NOTES: Noted with low-grade temp. Cooling measures provided and acetaminophen provided. Tolerated well. upon reassessment 30 mins-post, patient's temperature noted top be 99.0. Will continue to monitor.
--- NOTE | 2019-11-08 17:33 | General Progress Note ---
Subjective Allergies: Coded Allergies: No Known Allergies (Unverified , 06/10/19) Subjective remains ill on vent/ no change on HD vitals noted=remains tachycardic Objective Last 24 Hour Vital Signs Date Time Temp Pulse Resp B/P (MAP) Pulse Ox O2 Delivery O2 Flow Rate FiO2 11/08/19 16:08 99.0 11/08/19 16:00 24 11/08/19 16:00 99.0 106 15 122/73 (89) 100 11/08/19 16:00 Mechanical Ventilator 11/08/19 15:17 103 16 24 11/08/19 12:00 99.5 114 15 97/63 (74) 100 11/08/19 12:00 24 11/08/19 12:00 112 11/08/19 12:00 Mechanical Ventilator 11/08/19 10:54 113 16 24 11/08/19 08:00 107 11/08/19 08:00 Mechanical Ventilator 11/08/19 08:00 98.2 105 18 115/61 (79) 100 11/08/19 08:00 24 11/08/19 07:25 109 16 24 11/08/19 04:04 Mechanical Ventilator 11/08/19 04:00 111 11/08/19 04:00 24 11/08/19 04:00 99.0 110 17 125/62 (83) 100 11/08/19 02:48 110 17 24 11/08/19 00:00 24 11/08/19 00:00 98.1 106 18 134/79 (97) 99 11/08/19 00:00 Mechanical Ventilator 11/08/19 00:00 107 11/07/19 23:31 109 15 24 11/07/19 20:00 97.9 95 16 102/69 (80) 95 11/07/19 20:00 Mechanical Ventilator 11/07/19 20:00 104 11/07/19 20:00 24 11/07/19 18:52 58 20 24 Intake and Output 11/07/19 11/08/19 18:59 06:59 Intake Total 505 ml 595 ml Output Total 2130 ml Balance -1625 ml 595 ml Free Water 100 ml 100 ml Tube Feeding 405 ml 495 ml Stool Total 130 ml Hemodialysis UF 2000 ml # Bowel Movements 1 Laboratory Tests 11/07/19 18:48: POC Whole Blood Glucose 147H 11/07/19 23:23: POC Whole Blood Glucose 216H 11/08/19 03:05: White Blood Count 17.5H, Red Blood Count 3.90L, Hemoglobin 9.0L, Hematocrit 29.1L, Mean Corpuscular Volume 75L, Mean Corpuscular Hemoglobin 23.1L, Mean Corpuscular Hemoglobin Concent 30.8L, Red Cell Distribution Width 17.8H, Platelet Count 627H, Mean Platelet Volume 5.9L, Neutrophils (%) (Auto) 78.3H, Lymphocytes (%) (Auto) 9.3L, Monocytes (%) (Auto) 10.7H, Eosinophils (%) (Auto) 0.7, Basophils (%) (Auto) 1.0, Sodium Level 134L, Potassium Level 3.9, Chloride Level 97L, Carbon Dioxide Level 25, Anion Gap 12, Blood Urea Nitrogen 56H, Creatinine 3.4H, Estimat Glomerular Filtration Rate 17.6, Glucose Level 195H, Calcium Level 9.2, Phosphorus Level 2.5 11/08/19 05:17: POC Whole Blood Glucose 220H 11/08/19 12:01: POC Whole Blood Glucose [Pending] Height (Feet): 5 Height (Inches): 10.00 Weight (Pounds): 123 Objective GENERAL: Ill-appearing male, chronically debilitated. HEENT: Tracheostomy in midline. Questionable fullness in the submandibular region. LUNGS: Coarse breath sounds. reduced breath sounds CARDIAC: S1, S2. Regular rate and rhythm. tachy ABDOMEN: Soft. G-tube. EXTREMITIES: With noted edema. NEUROLOGICAL: Poorly responsive, weak diffusely. Assessment/Plan Assessment/Plan: IMPRESSION: 1. anemia. 2. fevers improved 3. Leukocytosis. 4. hypotension 5. Acute on chronic renal failure. 6. Hyponatremia. 7. Severe protein-calorie malnutrition. 8. Significantly elevated C-reactive protein concerning for infectious etiology. 9. Tracheostomy, G-tube. 10. Ventilator dependence. 11. anasarca 12. Hematuria 13. V pacing 14. hyponatremia 15. transaminitis, HIDA negative PLAN monitor vitals; cards following and control HR antibiotics per ID chronic care; unable to place care noted on vent/ no wean monitor labs and optimize ID follow up - wbc now worse dialysis ongoing- adjust lytes prognosis poor for recovery impression, plan, and exam edited and reviewed in detail care discussed with Kain Tovar MD Nov 08, 2019 17:33
--- NOTE | 2019-11-08 19:15 | NUR ---
NURSE NOTES: Pt see in bed, sleeping comfortably. Changed pt and reposition. Pt has no signs of respiratory distress. Attached to vent with settings as ordered. IV site patent and intact. No signs of pain noted. Call light within reach. Dressing changed noted on Right upper chest permacath changed by the Dialysis Nurse Sylvester. Still bowel movement is watery and liquidy brown in color. No bleeding noted. Continue to plan of care. No fever noted at this time.
--- NOTE | 2019-11-08 19:30 | NUR ---
NURSE HAND-OFF REPORT: Important Events on Shift: Patient Status: Stable Diet: GT feeding. Pending Orders: Pending Results/Labs: Pending MD notification: Latest Vital Signs: Temperature 99.0 , Pulse 101 , B/P 122 /73 , Respiratory Rate 14 , O2 SAT 100 , Mechanical Ventilator, O2 Flow Rate 15.0 . Vital Sign Comment: EKG Rhythm: V-Paced Rhythm change?: N MD Notified?: N - MD Response: Latest Delacruz Fall Score: 70 Fall Risk: High Risk Safety Measures: Call light Within Reach, Bed Alarm Zone 1, Side Rails Side Rails x3, Bed position Low and Locked. Fall Precautions: Yellow Socks Door Sign Patient Fall Education Report given to TAMICA Rob.
[2019-11-08 20:00] VITALS: BP 114/54
[2019-11-08] MEDS: Epoetin Alfa-EPBX(ESRD on dialysis)4000 units/ml vial SUBQ SCH (20:47)
[2019-11-08] MEDS: Dyna-Hex 2% Top Sol 2oz TOPIC SCH (20:47)
--- NOTE | 2019-11-08 22:31 | General Progress Note ---
Subjective Allergies: Coded Allergies: No Known Allergies (Unverified , 06/10/19) Subjective above noted NAD on TF non communicative Objective Last 24 Hour Vital Signs Date Time Temp Pulse Resp B/P (MAP) Pulse Ox O2 Delivery O2 Flow Rate FiO2 11/08/19 19:16 101 14 24 11/08/19 16:08 99.0 11/08/19 16:00 106 11/08/19 16:00 24 11/08/19 16:00 99.0 106 15 122/73 (89) 100 11/08/19 16:00 Mechanical Ventilator 11/08/19 15:17 103 16 24 11/08/19 12:00 99.5 114 15 97/63 (74) 100 11/08/19 12:00 24 11/08/19 12:00 112 11/08/19 12:00 Mechanical Ventilator 11/08/19 10:54 113 16 24 11/08/19 08:00 107 11/08/19 08:00 Mechanical Ventilator 11/08/19 08:00 98.2 105 18 115/61 (79) 100 11/08/19 08:00 24 11/08/19 07:25 109 16 24 11/08/19 04:04 Mechanical Ventilator 11/08/19 04:00 111 11/08/19 04:00 24 11/08/19 04:00 99.0 110 17 125/62 (83) 100 11/08/19 02:48 110 17 24 11/08/19 00:00 24 11/08/19 00:00 98.1 106 18 134/79 (97) 99 11/08/19 00:00 Mechanical Ventilator 11/08/19 00:00 107 11/07/19 23:31 109 15 24 Intake and Output 11/07/19 11/08/19 18:59 06:59 Intake Total 505 ml 595 ml Output Total 2130 ml Balance -1625 ml 595 ml Free Water 100 ml 100 ml Tube Feeding 405 ml 495 ml Stool Total 130 ml Hemodialysis UF 2000 ml # Bowel Movements 1 Laboratory Tests 11/07/19 23:23: POC Whole Blood Glucose 216H 11/08/19 03:05: White Blood Count 17.5H, Red Blood Count 3.90L, Hemoglobin 9.0L, Hematocrit 29.1L, Mean Corpuscular Volume 75L, Mean Corpuscular Hemoglobin 23.1L, Mean Corpuscular Hemoglobin Concent 30.8L, Red Cell Distribution Width 17.8H, Platelet Count 627H, Mean Platelet Volume 5.9L, Neutrophils (%) (Auto) 78.3H, Lymphocytes (%) (Auto) 9.3L, Monocytes (%) (Auto) 10.7H, Eosinophils (%) (Auto) 0.7, Basophils (%) (Auto) 1.0, Sodium Level 134L, Potassium Level 3.9, Chloride Level 97L, Carbon Dioxide Level 25, Anion Gap 12, Blood Urea Nitrogen 56H, Creatinine 3.4H, Estimat Glomerular Filtration Rate 17.6, Glucose Level 195H, Calcium Level 9.2, Phosphorus Level 2.5 11/08/19 05:17: POC Whole Blood Glucose 220H 11/08/19 12:01: POC Whole Blood Glucose [Pending] 11/08/19 17:57: POC Whole Blood Glucose [Pending] Height (Feet): 5 Height (Inches): 10.00 Weight (Pounds): 123 Objective Debilitated AA man NCAT (+) trach coarse BS RR abd less distended, anasarca, (+) GT, (+) rectal tube ext contracted Assessment/Plan Assessment/Plan: Assessment - abdominal distention, due to colonic dysmotility, - colonoscopy negative to hepatic flexure - diarrhea - presumed TF related - abnormal LFT - ? etiology --> HIDA negative and CT negative - Anemia - leukocytosis - stool OB (+) - EGD --> gastritis - Renal failure - Anasarca - resp failure, trach - b/l pleural effusions - dysphagia, GT - encephalopathy, contracted - poor px Recommendations - continue TF - check hepatitis markers - negative - rectal tube - roll side to side as feasible (hard due to severe contractions) - Elevate HOB - f/u labs - PPI - abx - supportive care Ronny Mustafa MD Nov 08, 2019 22:31
[2019-11-09] VITALS: BP 145/70
--- NOTE | 2019-11-09 03:33 | NUR ---
NURSE NOTES: Seen pt comfortably in bed. No signs of respiratory distress noted. Pt is obtunded and non verbal.Eyes open spontaneously. Changed linen and reposition as frequently as possible. Changed bedding, sponge bath given. Continue to plan of care.
[2019-11-09 04:00] VITALS: BP 143/66
[2019-11-09 04:59] LABS: HEMATOCRIT 28.7 % (42.0-52.0); HEMOGLOBIN 8.8 G/DL (14.2-18.0); MEAN CORPUSCULAR VOLUME 74 FL (80-99); PLATELET COUNT 596 K/UL (150-450); RED BLOOD COUNT 3.87 M/UL (4.70-6.10); WHITE BLOOD COUNT 19.3 K/UL (4.8-10.8)
[2019-11-09 05:30] LABS: CALCIUM 9.8 MG/DL (8.5-10.1); CREATININE 4.4 MG/DL (0.55-1.30)
[2019-11-09] MEDS: NovoLOG Insulin Flexpen SUBQ SCH ×4 (05:32→23:11)
--- NOTE | 2019-11-09 06:00 | NUR ---
NURSE NOTES: Started hemodialysis by Renal Nurse.
[2019-11-09] MEDS: Acetaminophen 650mg/20.3ml GT PRN (06:46)
--- NOTE | 2019-11-09 06:46 | Hematology/Onc Progress Note ---
Assessment/Plan Assessment/Plan Assessment/recs # Anemia due to chronic disease/kidney disease as well, gi bleed + occult + noted --> was on iron in the past, now on hold --> has been started on Epogen sq --> as per renal care --> egd done and shows gastritis --> on ppi --> egd showed gastritis, colo recently done --> hgb 9-->8. 7-->7.6-->9.2-->8.9-->9.2->9.3-->8.8->9.9-->9.2-->8.1-->8.7-->7.9-->8.6-->8.9--> 8.2->9-->9.3->8.9-->9.5-->10.6->9.2-->10->8.9--> 8.3-->8.9-->9.9-->9.3-->9-->9.3->11-->8.6->8.7>9-->8.4-->9.1-->8.8 --> spep ordered->wnl # Leukocytosis - with multiple infections, VRE UTI, flow is negative --> wbc trend 33-->28-->25->23->22->23->24->17.3-->17-->14->16-->15.6-->14--> 14->13->19->18->17->22->22->19->17-->18->20-->15-->14->16-->14-->17->18-->17->15 -->16-->17->28->19-->21-->19-->23->15-->19 --> on abx, linezolid and zosyn--> zosyn-->gent-->off-->vanc/zosyn-->cefepime/colistin --> + blood cultures with coag neg staph likely contaminated --> as per id recs --> has ordered a flow cytometry (with pathology) --> does show increased nK cell activity --> JOURDAN 2 and bcr-abl labs ordered (these are send outs)->negative --> plt 585-->613-->649-->669->663-->529-->506-->620-->720 # Elevated ddimer on admission --> duplex lower legs neg for dvt # Respiratory failure --> per pulm, s/p trach --> COVID 19 test negative x 2 # Hyperlipidemia --> statin po # Dysphagia s/p gtube with nepro --> per gi # ESRD with r fem julito --> hd as per renal # Dvt ppx heparin sq Appreciate consultation and dw Rn Subjective HEENT: Denies: no symptoms, eye pain, blurred vision, tearing, double vision, ear pain, ear discharge, nose pain, nose congestion, throat pain, throat swelling, mouth pain, mouth swelling, other Cardiovascular: Denies: no symptoms, chest pain, edema, irregular heart rate, lightheadedness, palpitations, syncope, other Respiratory: Denies: no symptoms, cough, shortness of breath, SOB with excertion, SOB at rest, sputum, wheezing, other Allergies: Coded Allergies: No Known Allergies (Unverified , 06/10/19) All Systems: reviewed and negative except above Subjective 08/15 meds noted, no bleeding, hgb 8.8, wbc 28, path flow pending 08/16 flow pending dw pathologist, results pending, wbc 25, hgb 9 08/17 labs reviewed, meds reviewed, meds noted, no night sweats 08/19 remains obtunded, on vent/trach, no bleeding wbc 21.7 08/20 labs have been reviewed, no bleeding, wbc still elev, path reviewed 08/21 labs are noted, no bleeding, on vent, wbc better 08/22 labs noted, no bleeding, meds reviewed, wbc 24 hgb 7.6 08/23 vent, off abx, c diff negative, h/h stable 08/24 labs reviewed, on abx, wbc 17, hgb 8.9, no hemolysis 08/26 reviewed flow and is negative for leukemia, matt rn 08/27 meds reviewed, no night sweats, matt rn, no major bleeding 08/28 meds reivewed, labs noted 08/29 wbc is stable, approx 15, hgb 8.8, no hemolysis 08/30 labs are noted, is for colo today, hgb 9.9 08/31 right fem julito in place, unchanged, hgb 9.2, gi aware 09/01 labs noted, hgb 8.8, plt >600, no bleeding 09/02 labs noted, no bleeding, with elev wbc still, no new changes 09/03 meds are noted, no bleeding, labs reviewed hgb 8.6 09/04 no major events, hd as per renal, abx, no bleeding hgb low 09/05 labs are noted, no bleeding, meds have been reviewed 09/06 no new labs no hemolysis, cbc is noted, no bleeding 09/07 meds reviewed, no bleeding, matt rn, permacath functioning well 09/09 meds reviewed, wbc still elevated, as per id recs, cbc noted 09/10 is obtunded, with gutbe in place, labs reviewed 09/11 obtunded, as per id, observe now off abx, labs noted, wbc 19 09/12 cbc is pending, remains on epogen, also off abx 09/13 labs reviewed, no bleeding, elev wbc, no night sweats 09/14 meds noted, no bleeding, wbc 19, hgb 9.5, no night sweats 09/21 obtunded, remains on vent, labs noted, no bleeding, hgb 8.9 09/22 obtunded, labs noted, no bleeding, on vent, unchanged 09/23 unchanges, wbc remains elevated 20k, on abx, on vent 09/24 labs have been reviewed, no bleeding, wbc 15, may need abx 09/25 formula gtube changed, labs noted, remains obtunded, hgb 9.3 09/26 labs have been reviewed, no bleeding, matt rn, no night sweats 09/27 meds reviewed, no bleeding, wbc 14, on abx, remains obtunded 09/28 remains obtunded, no bleeding, wbc better, hgb 8.9, no hemolysis, plt 506 09/30 on colisitn, wbc elevated, cefepime added per id, hgb stable 10/01 labs reviewed, no bleeding, matt rn, no major events noted, wbc 14, hgb 10.6 10/02 labs have been noted, hgb 9.2, wbc 17, on abx, matt rn 10/03 continue on tube feeds, no bleeding, on vent, wbc remains elevated 10/04 remains ibtunded, is on a mechanical ventilator with tube feeds noted 10/05 labs are noted, hgb 8.6, wbc remains elevated, have ordered for spep 10/07 obtunded on vent, with gtube feeds, labs reviewed, matt rn 10/08 labs are noted, on vent/trach, hgb 10.2, remains obtunded 10/09 labns noted, wbc 15, hgb 8.9, remains altered, on tfs 10/10 labs noted, holding tube feeds, matt rn, hg stable 8.3 currently 10/11 remains on tfs, supportive care, labs noted, no bleeding 10/12 remains obtunded, hgb 8.9, no hemolysis is seen 10/14 labs reviewed, no bleeding, pending potential hd if rn available 10/15 is on vent, with gtube, labs reviewed, no bleeding, to get hd soon 10/16 remains on vent, matt rn at bedside, wbc 15, abx prn, plt also higher, will mo nitor 10/17 on vent, continue on tube feeds via gtube, labs improved 10/18 labs noted, remains on vent, and tube feeds, no major changes 10/19 nad, no bleeding, labs reviewed, no night sweats, bp elevated, cards aware 10/21 labs pending, with gtube running, on mec vent, abx off 10/22 labs reviewed, no major changes, wbc 18, plt 791k, on gtube feeds 10/23 labs reviewed, meds noted, on epogen and lovenox sq, obtunded, is nv 9.16 labs are noted, wbc 28, hgb 8.6, no hemolysis is noted 10/27 labs reviewed, on mech vent, on gtube feeds, no bleeding wbc 21 10/28 labs noted, wbc 19, plt remains elevated, hd as per renal Dr. Frank 10/29 obtunded, gt feedings on hold, wbc 19, hgb 9, no bleeding 10/30 labs reviewed, no bleeding, wbc 21, hgb 9, hd as per renal care 10/31 labs are noted, wbc 19, hgb 8.4, on vent, obtunded 11/01 obtunded state, no bleeding, meds reviewed, on heparin started today, matt wright 11/02 nv, trach, no bleeding, wbc has increased likely due to infection 11/03 is off abx, no bleeding, meds noted, no hemolysis seen, wbc 15 11/04 meds noted, no bleeding, matt rn 11/06 no residual, labs reviewed, no night sweats, no hemoptysis 11/07 labs are noted, wbc 18, hgb 9, no hemolysis 11/08 is obtunded, stable, nv, getting hd today in am Objective Objective Current Medications Medications (Trade) Dose Ordered Sig/Leonel Route PRN Reason Start Time Stop Time Status Last Admin Dose Admin Acetaminophen (Tylenol) 650 mg Q6H PRN GT Temp >100.5 10/21/19 20:45 11/20/19 20:44 11/08/19 15:38 Chlorhexidine Gluconate (Felipa-Hex 2%) 1 applic DAILY@1999 TOPIC 09/12/19 20:00 12/11/19 19:59 11/08/19 20:47 Clonidine HCl (Catapres Tab) 0.1 mg Q4H PRN GT For High Blood Pressure 09/09/19 12:30 12/08/19 05:29 09/15/19 04:10 Epoetin Andreas (Epoetin Andreas(ESRD on dialysis)) 8,000 unit WED-WED-WED SUBQ 10/25/19 21:00 01/23/20 20:59 11/08/19 20:47 Famotidine (Pepcid) 20 mg DAILY GT 08/30/19 09:00 11/28/19 08:59 11/08/19 09:21 Heparin Sodium (Porcine) (Heparin 5000 units/ml) 5,000 units EVERY 12 HOURS SUBQ 11/02/19 09:00 12/17/19 08:59 11/08/19 20:48 Heparin Sodium (Porcine) (Heparin Sod 1000 units/ml 10ml) 2,000 unit ONCE PRN IV FOR HD USE ONLY 11/07/19 12:00 11/09/19 23:59 Heparin Sodium (Porcine) (Heparin Sod 1000 units/ml 10ml) 2,000 unit ONCE PRN IV dialysis 11/09/19 09:00 11/09/19 23:59 Heparin Sodium (Porcine) (Heparin) 1,000 unit POSTHD INJ 11/09/19 09:00 11/09/19 23:59 Heparin Sodium (Porcine) (Heparin) 1,000 unit POSTHD PRN INJ FOR HD USE ONLY 11/07/19 12:00 11/09/19 23:59 Insulin Aspart (NovoLOG) Q6HR SUBQ 11/08/19 00:00 02/06/20 00:00 11/09/19 05:32 Lactobacillus Acidophilus (Culturelle) 1 tab EVERY 12 HOURS GT 10/03/19 21:00 12/13/19 17:59 11/08/19 20:47 Loperamide HCl (Imodium) 2 mg Q6H PRN NG Diarrhea 10/15/19 07:45 11/14/19 07:44 Sodium Chloride 500 ml @ 999 mls/hr Q31M PRN IV sbp<90 10/28/19 21:30 11/27/19 21:29 Sodium Chloride 1,000 ml @ 500 mls/hr Q2H PRN IVLG sbp<90 during hd 11/07/19 12:00 11/09/19 23:59 Sodium Chloride 1,000 ml @ 500 mls/hr Q2H PRN IVLG sbp<90 during hd 11/09/19 09:00 11/09/19 23:59 Last 24 Hour Vital Signs Date Time Temp Pulse Resp B/P (MAP) Pulse Ox O2 Delivery O2 Flow Rate FiO2 11/09/19 04:00 24 11/09/19 04:00 Mechanical Ventilator 11/09/19 04:00 106 11/09/19 04:00 98.5 103 18 143/66 (91) 100 11/09/19 03:05 103 14 24 11/09/19 00:00 98.6 108 17 145/70 (95) 100 11/09/19 00:00 Mechanical Ventilator 11/09/19 00:00 108 11/08/19 22:52 99 17 24 11/08/19 20:00 Mechanical Ventilator 11/08/19 20:00 24 11/08/19 20:00 98.1 96 17 114/54 (74) 100 11/08/19 20:00 97 11/08/19 19:16 101 14 24 11/08/19 16:08 99.0 11/08/19 16:00 106 11/08/19 16:00 24 11/08/19 16:00 99.0 106 15 122/73 (89) 100 11/08/19 16:00 Mechanical Ventilator 11/08/19 15:17 103 16 24 11/08/19 12:00 99.5 114 15 97/63 (74) 100 11/08/19 12:00 24 11/08/19 12:00 112 11/08/19 12:00 Mechanical Ventilator 11/08/19 10:54 113 16 24 11/08/19 08:00 107 11/08/19 08:00 Mechanical Ventilator 11/08/19 08:00 98.2 105 18 115/61 (79) 100 11/08/19 08:00 24 11/08/19 07:25 109 16 24 11/08/19 04:04 Mechanical Ventilator 11/08/19 04:00 111 11/08/19 04:00 24 11/08/19 04:00 99.0 110 17 125/62 (83) 100 11/08/19 02:48 110 17 24 11/08/19 00:00 24 11/08/19 00:00 98.1 106 18 134/79 (97) 99 11/08/19 00:00 Mechanical Ventilator 11/08/19 00:00 107 11/07/19 23:31 109 15 24 11/07/19 20:00 97.9 95 16 102/69 (80) 95 11/07/19 20:00 Mechanical Ventilator 11/07/19 20:00 104 11/07/19 20:00 24 11/07/19 18:52 58 20 24 11/07/19 16:00 92 11/07/19 16:00 98.2 103 22 129/76 (93) 99 11/07/19 16:00 Mechanical Ventilator 11/07/19 16:00 24 11/07/19 15:30 99 17 24 11/07/19 12:00 100 11/07/19 12:00 24 11/07/19 12:00 98.1 98 19 128/72 (90) 100 11/07/19 12:00 Mechanical Ventilator 11/07/19 11:00 97 18 24 11/07/19 08:00 99.5 90 17 137/72 (93) 100 11/07/19 08:00 Mechanical Ventilator 11/07/19 08:00 90 11/07/19 08:00 24 11/07/19 07:40 90 14 24 Intake and Output 11/08/19 11/09/19 19:00 07:00 Intake Total 585 ml 545 ml Output Total 150 ml Balance 585 ml 395 ml Free Water 180 ml 50 ml Tube Feeding 405 ml 495 ml Stool Total 150 ml Labs Test 11/06/19 10:50 11/06/19 12:45 11/06/19 17:20 11/06/19 23:08 White Blood Count 17.0 K/UL (4.8-10.8) Red Blood Count 4.25 M/UL (4.70-6.10) Hemoglobin 9.6 G/DL (14.2-18.0) Hematocrit 31.8 % (42.0-52.0) Mean Corpuscular Volume 75 FL (80-99) Mean Corpuscular Hemoglobin 22.7 PG (27.0-31.0) Mean Corpuscular Hemoglobin Concent 30.2 G/DL (32.0-36.0) Red Cell Distribution Width 18.4 % (11.6-14.8) Platelet Count 624 K/UL (150-450) Mean Platelet Volume 5.8 FL (6.5-10.1) Neutrophils (%) (Auto) 69.9 % (45.0-75.0) Lymphocytes (%) (Auto) 13.5 % (20.0-45.0) Monocytes (%) (Auto) 8.9 % (1.0-10.0) Eosinophils (%) (Auto) 6.3 % (0.0-3.0) Basophils (%) (Auto) 1.4 % (0.0-2.0) Sodium Level 132 MMOL/L (136-145) Potassium Level 4.3 MMOL/L (3.5-5.1) Chloride Level 96 MMOL/L (98-107) Carbon Dioxide Level 25 MMOL/L (21-32) Anion Gap 11 mmol/L (5-15) Blood Urea Nitrogen 62 mg/dL (7-18) Creatinine 3.6 MG/DL (0.55-1.30) Estimat Glomerular Filtration Rate 16.5 mL/min (>60) Glucose Level 125 MG/DL (74-106) Calcium Level 9.7 MG/DL (8.5-10.1) POC Whole Blood Glucose 131 MG/DL (74-106) 204 MG/DL (74-106) Test 11/07/19 04:51 11/07/19 12:52 11/07/19 18:48 11/07/19 23:23 POC Whole Blood Glucose 187 MG/DL (74-106) 173 MG/DL (74-106) 147 MG/DL (74-106) 216 MG/DL (74-106) Test 11/08/19 03:05 11/08/19 05:17 11/08/19 12:01 11/08/19 17:57 White Blood Count 17.5 K/UL (4.8-10.8) Red Blood Count 3.90 M/UL (4.70-6.10) Hemoglobin 9.0 G/DL (14.2-18.0) Hematocrit 29.1 % (42.0-52.0) Mean Corpuscular Volume 75 FL (80-99) Mean Corpuscular Hemoglobin 23.1 PG (27.0-31.0) Mean Corpuscular Hemoglobin Concent 30.8 G/DL (32.0-36.0) Red Cell Distribution Width 17.8 % (11.6-14.8) Platelet Count 627 K/UL (150-450) Mean Platelet Volume 5.9 FL (6.5-10.1) Neutrophils (%) (Auto) 78.3 % (45.0-75.0) Lymphocytes (%) (Auto) 9.3 % (20.0-45.0) Monocytes (%) (Auto) 10.7 % (1.0-10.0) Eosinophils (%) (Auto) 0.7 % (0.0-3.0) Basophils (%) (Auto) 1.0 % (0.0-2.0) Sodium Level 134 MMOL/L (136-145) Potassium Level 3.9 MMOL/L (3.5-5.1) Chloride Level 97 MMOL/L (98-107) Carbon Dioxide Level 25 MMOL/L (21-32) Anion Gap 12 mmol/L (5-15) Blood Urea Nitrogen 56 mg/dL (7-18) Creatinine 3.4 MG/DL (0.55-1.30) Estimat Glomerular Filtration Rate 17.6 mL/min (>60) Glucose Level 195 MG/DL (74-106) Calcium Level 9.2 MG/DL (8.5-10.1) Phosphorus Level 2.5 MG/DL (2.5-4.9) POC Whole Blood Glucose 220 MG/DL (74-106) Test 11/08/19 23:44 11/09/19 02:50 11/09/19 05:29 POC Whole Blood Glucose 197 MG/DL (74-106) 188 MG/DL (74-106) White Blood Count 19.3 K/UL (4.8-10.8) Red Blood Count 3.87 M/UL (4.70-6.10) Hemoglobin 8.8 G/DL (14.2-18.0) Hematocrit 28.7 % (42.0-52.0) Mean Corpuscular Volume 74 FL (80-99) Mean Corpuscular Hemoglobin 22.8 PG (27.0-31.0) Mean Corpuscular Hemoglobin Concent 30.6 G/DL (32.0-36.0) Red Cell Distribution Width 18.0 % (11.6-14.8) Platelet Count 596 K/UL (150-450) Mean Platelet Volume 5.9 FL (6.5-10.1) Neutrophils (%) (Auto) % (45.0-75.0) Lymphocytes (%) (Auto) % (20.0-45.0) Monocytes (%) (Auto) % (1.0-10.0) Eosinophils (%) (Auto) % (0.0-3.0) Basophils (%) (Auto) % (0.0-2.0) Sodium Level 131 MMOL/L (136-145) Potassium Level 4.0 MMOL/L (3.5-5.1) Chloride Level 95 MMOL/L (98-107) Carbon Dioxide Level 21 MMOL/L (21-32) Anion Gap 15 mmol/L (5-15) Blood Urea Nitrogen 80 mg/dL (7-18) Creatinine 4.4 MG/DL (0.55-1.30) Estimat Glomerular Filtration Rate 13.1 mL/min (>60) Glucose Level 195 MG/DL (74-106) Calcium Level 9.8 MG/DL (8.5-10.1) Height (Feet): 5 Height (Inches): 10.00 Weight (Pounds): 123 Objective Physical Exam General Appearance: nad, Chronically Ill Head: normocephalic Eyes: right eye PERRL - Will not open left eye ENT: moist mucus membranes Neck: other - submandibular mass R, fairly rigid with resistance to rotation to L, tracheotomy Respiratory: decreased breath sounds, crackles, other - pacemaker, vent+ Cardiovascular: regular rate, rhythm, edema - anasarca Gastrointestinal: non tender, distended, other - G tube Genitourinary: other ++rectal tube Musculoskeletal: other - Contractures all extremities Neurologic: sensory intact, motor weakness, responsive Psychiatric: other Skin: Decubitus/Ulcer - Stage III right elbow, stage III left elbow, stage II sacrum, stage III scrotum, warm/dry Fitz Campos MD Nov 09, 2019 06:46
--- NOTE | 2019-11-09 07:00 | NUR ---
Nurses notes: Waiting for response from Dr. Horacio wolfe Sodium 131.
--- NOTE | 2019-11-09 07:15 | NUR ---
NURSE HAND-OFF REPORT: Important Events on Shift: Hemodialysis, Fever 100.5 Patient Status: Stable Diet: Gt tube feeding Pending Orders: None Pending Results/Labs:None Pending MD notification: Sodium 131 Latest Vital Signs: Temperature 98.5 , Pulse 106 , B/P 143 /66 , Respiratory Rate 18 , O2 SAT 100 , Mechanical Ventilator, O2 Flow Rate 15.0 . Vital Sign Comment: Fever noted EKG Rhythm: V-Paced Rhythm change?: N MD Notified?: N - MD Response: Latest Delacruz Fall Score: 70 Fall Risk: High Risk Safety Measures: Call light Within Reach, Bed Alarm Zone 1, Side Rails Side Rails x3, Bed position Low and Locked. Fall Precautions: Yellow Socks Door Sign Patient Fall Education Report given to [Nickie RN].
--- NOTE | 2019-11-09 07:15 | NUR ---
NURSE NOTES: Received patient from [facility] under the care of Dr. Ramirez for the admitting dx. of renal failure and GI bleed. Noted NKDA and Full code. On contact isolation, fall risk, and aspiration precaution observed and maintained at all times. Obtunded and non-verbal. patient is V-paced as seen via the cardiac exercise physiologist. Will continue to monitor
[2019-11-09] MEDS ORDERED: Heparin 1000 units/ml 1ml Vial INJ PRN (07:37)
[2019-11-09] MEDS ORDERED: Heparin Sod 1000 units/ml 10ml IV PRN ×2 (07:53→09:00)
[2019-11-09 08:00] VITALS: BP 137/78
[2019-11-09] MEDS ORDERED: Heparin 1000 units/ml 1ml Vial INJ SCH (09:00)
[2019-11-09] MEDS: Lactobacillus-GG tablet GT SCH ×2 (09:20→20:28)
[2019-11-09] MEDS: Heparin 5000 units/ml inj SUBQ SCH ×2 (09:23→20:29)
--- NOTE | 2019-11-09 09:28 | NUR ---
CASE MANAGEMENT: REVIEW SI: LEUKOCYTOSIS . ESRD on HD . ANEMIA T 98.2 HR 114 RR 24 BP 145/70 SAT 100% MECH VENT FIO2 24 WBC 19.3 H/H 8.8/28.7 NA 131 BUN 80 CR 4.4 IS: EPOETIN SUBQ MWF HEPARIN SUBQ Q12HR LACTOBACILLUS GT Q12HR FOLLOW UP CULTURES HD PER RENAL STEP DOWN UNIT STATUS DCP: PLACEMENT PENDING. HEALTH PLAN ASSISTING WITH PLACEMENT
--- NOTE | 2019-11-09 11:10 | Infectious Diseases Prog Note ---
Assessment/Plan Assessment/Plan A: 1. Pneumonia with Morganella & KPC treated COVID19 X2 : negative 2. ESRD on HD 3. Leukocytosis worsenig 4. Respiratory failure, Ventilator dependent 5. Anemia 6. Elevated transaminase 7. 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 Klebsiella line infection s/p line change 10. Diarrhea, C. difficile negative PLAN: 1. Observe of antibiotic Subjective ROS Limited/Unobtainable: Yes Constitutional: Denies: fever Allergies: Coded Allergies: No Known Allergies (Unverified , 06/10/19) Objective Last 24 Hour Vital Signs Date Time Temp Pulse Resp B/P (MAP) Pulse Ox O2 Delivery O2 Flow Rate FiO2 11/09/19 08:00 24 11/09/19 08:00 Mechanical Ventilator 11/09/19 08:00 117 11/09/19 08:00 98.2 114 24 137/78 (97) 100 11/09/19 07:39 98.5 11/09/19 07:28 101 15 24 11/09/19 04:00 24 11/09/19 04:00 Mechanical Ventilator 11/09/19 04:00 106 11/09/19 04:00 98.5 103 18 143/66 (91) 100 11/09/19 03:05 103 14 24 11/09/19 00:00 98.6 108 17 145/70 (95) 100 11/09/19 00:00 Mechanical Ventilator 11/09/19 00:00 108 11/08/19 22:52 99 17 24 11/08/19 20:00 Mechanical Ventilator 11/08/19 20:00 24 11/08/19 20:00 98.1 96 17 114/54 (74) 100 11/08/19 20:00 97 11/08/19 19:16 101 14 24 11/08/19 16:08 99.0 11/08/19 16:00 106 11/08/19 16:00 24 11/08/19 16:00 99.0 106 15 122/73 (89) 100 11/08/19 16:00 Mechanical Ventilator 11/08/19 15:17 103 16 24 11/08/19 12:00 99.5 114 15 97/63 (74) 100 11/08/19 12:00 24 11/08/19 12:00 112 11/08/19 12:00 Mechanical Ventilator Height (Feet): 5 Height (Inches): 10.00 Weight (Pounds): 123 General Appearance: cachetic HEENT: status post trach Respiratory/Chest: rhonchi - bilaterally, other - on ventilator Cardiovascular: tachycardia, other - R permacath Abdomen: soft, non tender, other - GT & rectal tube Extremities: no edema Neurologic/Psychiatric: aphasia, other - opens eyes Laboratory Tests Test 11/08/19 12:01 11/08/19 17:57 11/08/19 23:44 11/09/19 02:50 POC Whole Blood Glucose Pending Pending 197 MG/DL (74-106) H White Blood Count 19.3 K/UL (4.8-10.8) H Red Blood Count 3.87 M/UL (4.70-6.10) L Hemoglobin 8.8 G/DL (14.2-18.0) L Hematocrit 28.7 % (42.0-52.0) L Mean Corpuscular Volume 74 FL (80-99) L Mean Corpuscular Hemoglobin 22.8 PG (27.0-31.0) L Mean Corpuscular Hemoglobin Concent 30.6 G/DL (32.0-36.0) L Red Cell Distribution Width 18.0 % (11.6-14.8) H Platelet Count 596 K/UL (150-450) H Mean Platelet Volume 5.9 FL (6.5-10.1) L Neutrophils (%) (Auto) % (45.0-75.0) Lymphocytes (%) (Auto) % (20.0-45.0) Monocytes (%) (Auto) % (1.0-10.0) Eosinophils (%) (Auto) % (0.0-3.0) Basophils (%) (Auto) % (0.0-2.0) Differential Total Cells Counted 100 Neutrophils % (Manual) 67 % (45-75) Lymphocytes % (Manual) 20 % (20-45) Monocytes % (Manual) 10 % (1-10) Eosinophils % (Manual) 3 % (0-3) Basophils % (Manual) 0 % (0-2) Band Neutrophils 0 % (0-8) Platelet Estimate Increased H Platelet Morphology Normal Hypochromasia 2+ Anisocytosis 2+ Microcytosis 1+ Sodium Level 131 MMOL/L (136-145) L Potassium Level 4.0 MMOL/L (3.5-5.1) Chloride Level 95 MMOL/L (98-107) L Carbon Dioxide Level 21 MMOL/L (21-32) Anion Gap 15 mmol/L (5-15) Blood Urea Nitrogen 80 mg/dL (7-18) H Creatinine 4.4 MG/DL (0.55-1.30) H Estimat Glomerular Filtration Rate 13.1 mL/min (>60) Glucose Level 195 MG/DL (74-106) H Calcium Level 9.8 MG/DL (8.5-10.1) Test 11/09/19 05:29 POC Whole Blood Glucose 188 MG/DL (74-106) H Current Medications Medications (Trade) Dose Ordered Sig/Leonel Route PRN Reason Start Time Stop Time Status Last Admin Dose Admin Acetaminophen (Tylenol) 650 mg Q6H PRN GT Temp >100.5 10/21/19 20:45 11/20/19 20:44 11/09/19 06:46 Chlorhexidine Gluconate (Felipa-Hex 2%) 1 applic DAILY@1999 TOPIC 09/12/19 20:00 12/11/19 19:59 11/08/19 20:47 Clonidine HCl (Catapres Tab) 0.1 mg Q4H PRN GT For High Blood Pressure 09/09/19 12:30 12/08/19 05:29 09/15/19 04:10 Epoetin Andreas (Epoetin Andreas(ESRD on dialysis)) 8,000 unit WED-WED-WED SUBQ 10/25/19 21:00 01/23/20 20:59 11/08/19 20:47 Famotidine (Pepcid) 20 mg DAILY GT 08/30/19 09:00 11/28/19 08:59 11/09/19 09:20 Heparin Sodium (Porcine) (Heparin 5000 units/ml) 5,000 units EVERY 12 HOURS SUBQ 11/02/19 09:00 12/17/19 08:59 11/09/19 09:23 Heparin Sodium (Porcine) (Heparin Sod 1000 units/ml 10ml) 2,000 unit ONCE PRN IV dialysis 11/09/19 07:53 11/09/19 23:59 Heparin Sodium (Porcine) (Heparin) 1,000 unit POSTHD PRN INJ POST HD 11/09/19 07:37 11/09/19 23:59 11/09/19 07:52 Insulin Aspart (NovoLOG) Q6HR SUBQ 11/08/19 00:00 02/06/20 00:00 11/09/19 05:32 Lactobacillus Acidophilus (Culturelle) 1 tab EVERY 12 HOURS GT 10/03/19 21:00 12/13/19 17:59 11/09/19 09:20 Loperamide HCl (Imodium) 2 mg Q6H PRN NG Diarrhea 10/15/19 07:45 11/14/19 07:44 Sodium Chloride 500 ml @ 999 mls/hr Q31M PRN IV sbp<90 10/28/19 21:30 11/27/19 21:29 Sodium Chloride 1,000 ml @ 500 mls/hr Q2H PRN IVLG sbp<90 during hd 11/07/19 12:00 11/09/19 23:59 Sodium Chloride 1,000 ml @ 500 mls/hr Q2H PRN IVLG sbp<90 during hd 11/09/19 09:00 11/09/19 23:59 Real De Leon MD Nov 09, 2019 11:10
[2019-11-09 12:00] VITALS: BP 130/64
[2019-11-09] MEDS ORDERED: Sterile Water Irrig 1000ml IRRIG ONE (12:00)
[2019-11-09] MEDS ORDERED: Tubing Blood Filter IV ONE (12:00)
[2019-11-09] MEDS ORDERED: NS 275ml ONE (12:00)
--- NOTE | 2019-11-09 12:16 | Surgery Progress Note ---
Surgery Progress Note Subjective Procedure Performed Right femoral temporary hemodialysis catheter removal Additional Comments juan cute events family at bedside Objective Last 24 Hour Vital Signs Date Time Temp Pulse Resp B/P (MAP) Pulse Ox O2 Delivery O2 Flow Rate FiO2 11/09/19 12:12 109 18 24 11/09/19 08:00 24 11/09/19 08:00 Mechanical Ventilator 11/09/19 08:00 117 11/09/19 08:00 98.2 114 24 137/78 (97) 100 11/09/19 07:39 98.5 11/09/19 07:28 101 15 24 11/09/19 04:00 24 11/09/19 04:00 Mechanical Ventilator 11/09/19 04:00 106 11/09/19 04:00 98.5 103 18 143/66 (91) 100 11/09/19 03:05 103 14 24 11/09/19 00:00 98.6 108 17 145/70 (95) 100 11/09/19 00:00 Mechanical Ventilator 11/09/19 00:00 108 11/08/19 22:52 99 17 24 11/08/19 20:00 Mechanical Ventilator 11/08/19 20:00 24 11/08/19 20:00 98.1 96 17 114/54 (74) 100 11/08/19 20:00 97 11/08/19 19:16 101 14 24 11/08/19 16:08 99.0 11/08/19 16:00 106 11/08/19 16:00 24 11/08/19 16:00 99.0 106 15 122/73 (89) 100 11/08/19 16:00 Mechanical Ventilator 11/08/19 15:17 103 16 24 I&O Intake and Output 11/08/19 11/09/19 19:00 07:00 Intake Total 585 ml 545 ml Output Total 150 ml Balance 585 ml 395 ml Free Water 180 ml 50 ml Tube Feeding 405 ml 495 ml Stool Total 150 ml Dressing: other Wound: other Cardiovascular: RSR Respiratory: decreased breath sounds Abdomen: soft, non-tender, present bowel sounds Extremities: no tenderness, no cyanosis Laboratory Tests Test 11/08/19 17:57 11/08/19 23:44 11/09/19 02:50 11/09/19 05:29 POC Whole Blood Glucose Pending 197 MG/DL (74-106) H 188 MG/DL (74-106) H White Blood Count 19.3 K/UL (4.8-10.8) H Red Blood Count 3.87 M/UL (4.70-6.10) L Hemoglobin 8.8 G/DL (14.2-18.0) L Hematocrit 28.7 % (42.0-52.0) L Mean Corpuscular Volume 74 FL (80-99) L Mean Corpuscular Hemoglobin 22.8 PG (27.0-31.0) L Mean Corpuscular Hemoglobin Concent 30.6 G/DL (32.0-36.0) L Red Cell Distribution Width 18.0 % (11.6-14.8) H Platelet Count 596 K/UL (150-450) H Mean Platelet Volume 5.9 FL (6.5-10.1) L Neutrophils (%) (Auto) % (45.0-75.0) Lymphocytes (%) (Auto) % (20.0-45.0) Monocytes (%) (Auto) % (1.0-10.0) Eosinophils (%) (Auto) % (0.0-3.0) Basophils (%) (Auto) % (0.0-2.0) Differential Total Cells Counted 100 Neutrophils % (Manual) 67 % (45-75) Lymphocytes % (Manual) 20 % (20-45) Monocytes % (Manual) 10 % (1-10) Eosinophils % (Manual) 3 % (0-3) Basophils % (Manual) 0 % (0-2) Band Neutrophils 0 % (0-8) Platelet Estimate Increased H Platelet Morphology Normal Hypochromasia 2+ Anisocytosis 2+ Microcytosis 1+ Sodium Level 131 MMOL/L (136-145) L Potassium Level 4.0 MMOL/L (3.5-5.1) Chloride Level 95 MMOL/L (98-107) L Carbon Dioxide Level 21 MMOL/L (21-32) Anion Gap 15 mmol/L (5-15) Blood Urea Nitrogen 80 mg/dL (7-18) H Creatinine 4.4 MG/DL (0.55-1.30) H Estimat Glomerular Filtration Rate 13.1 mL/min (>60) Glucose Level 195 MG/DL (74-106) H Calcium Level 9.8 MG/DL (8.5-10.1) Test 11/09/19 11:40 POC Whole Blood Glucose 153 MG/DL (74-106) H Plan Problems: (1) Anemia (2) Hyponatremia (3) Leukocytosis Assessment & Plan: Tracheostomy, left chest pacemaker are again demonstrated. There is bilateral interstitial and airspace disease and bilateral pleural fluid again demonstrated. This appears more severe than on the prior study. Bilateral interstitial and airspace infiltrates versus edema. Bilateral pleural effusions Leukocytosis, anemia, tachycardia, abnormal labs. Wound evaluated and likely etiology of patient's sepsis. Leukocytosis etiology work-up antibiotics per infectious disease Appreciate nephrology input transfuse with dialysis We will follow with recommendations thank you allowing participation's care plan HD access temp HD discussed with medical teams line okay HD as per renal persistent leukocytosis flow cyto noted improving trending down right fem line removed wbc fluctuating h/h stable lft's elevated There is a right pleural effusion Gallbladder demonstrates tiny wall adherent nonmobile echogenic foci, some possible mural calcifications, and comet tail artifact in the anterior wall. Patient unable to report sonographic Kent's sign. Common bile duct measures 4 mm in diameter. No intrahepatic biliary ductal dilatation. Liver demonstrates normal echogenicity, no focal abnormality. There is some surface nodularity. Portal vein and hepatic veins are patent. Pancreas is incompletely visualized due to overlying bowel gas, visualized portions are unremarkable. Spleen is unremarkable. Left kidney measures 8.7 cm in length. Right kidney measures 8.9 cm length. Both kidneys demonstrate increased echogenicity. There is no hydronephrosis. No focal abnormality . Abdominal aorta is partially obscured by bowel gas, visualized portions are non-aneurysmal . A gastrostomy is noted Impression: Tiny wall adherent nonmobile gallbladder echogenic foci, may reflect wall adherent calculi, small polyps, and/or pleural calcifications. Anterior wall comet tail artifact suggests foci of adenomyomatosis. Normal caliber common bile duct Possible hepatic surface nodularity, could indicate cirrhotic change Echogenic kidneys, consistent with medical renal disease. No hydronephrosis Right pleural effusion Gastrostomy Note nonvisualization of portions of the pancreas and abdominal aorta HIDA NEGATIVE trend labs (4) Ventilator dependent (5) Right lower lobe pneumonia (6) Hypokalemia (7) Hyperkalemia (8) Anasarca (9) Decubitus skin ulcer Assessment & Plan: pt presented on admission with generalized edemae.Skin assessed under tracheostomy and no areas of concerns noted. GT Insertion is marginally erythematous with small amt slough at stoma. Unstageable Pressure Injury R elbow. Base of wound is 100% yellow slough,Borders are erythematous. Wound oozing small amt haemopurulent exudate.Darker skin tone without elevation in skin temp or erythema periwound. Pt's penis and scrotum are grossly edematous and enlarged and weeping serous exudate from numerous sites both from penis and scrotum. Two small open wounds noted at base of at base of shaft of penis ,and contreras aspect of scrotum. Both wounds oozing large amt sanguineous and serosanguineous exudate. Multiple open wounds with Biofilm at base of each wounds noted to contreras/lateral,inferior and posterior aspects of scrotum. These wounds noted to be oozing moderate amts of serosanguineous exudate. Hypertrophic scar with scattered areas of hyperpigmentation noted to Sacrum. DTPI noted to L Buttocks (L)7cm x (W)9cm. Base of wound is purple and indurated.Darker skin tone without erythema,induration or fluctuance R and L ischial tuberosities. Both heels are boggy with non-blanchable erythema. potential decline given chronic illness Tx.Plan: Cleanse wound R elbow with Saline. Apply TheraHoney, Apply Moisture Barrier Paste periwound. Cover with Optifoam drsg.Change Daily and prn. Wash GT site with soap and water.Pat dry. Apply Zinc Oxide Paste to GT site Daily. Leave Open to Air. Apply Zinc Oxide Paste to entire Scrotum, Place ABD pads to R and L lateral, and posterior aspects of scrotum TWICE daily. Apply Cavilon Skin Barrier to malleoli and both Heels. Cover each site with Optifoam drsgs. Change every 7 days and prn. Reposition at least every 2hours or as tolerated. Off-load heels with Pillows. APM/BECCA Mattress overlay. (10) Malnutrition Assessment & Plan: DAILY ESTIMATED NEEDS: Needs based on Renal, critical care, wound/ 61kg 22-30 kcals/kg 2200-7111 total kcals 1.25-2 g protein/kg 76-122 g total protein Fluid per MD, now on HD NUTRITION DIAGNOSIS: * Swallowing difficulty R/T respiratory failure, dysphagia as evidenced by trach/vent dep, PEG dep * Increased kcal/prot needs R/T wound healing as evidenced by admitted w/ multiple pressure injuries including full thickness wounds at junction of Shaft of penis, dorsal scrotum, R elbow, and DTPI @ L buttocks. CURRENT TF:Osmolite 1.2 @ 60ml/hr x 20 hrs + Garo BID ENTERAL NUTRITION RECOMMENDATIONS: Vital AF 1.2 @ 60ml/hr x 20 hrs to provide 1200ml, 1440kcal, 90g prot, 973ml free water * Rec 20 hr run time for GI rest. -> W/ improved GI status, rec Vital AF 1.2, an elemental and carb controlled TF -> monitor lytes and renal fxn closely, monitor need for renal TF -> TF @ goal will provide 1642mg K and 2025mg Phos -> HOB over 30 degrees/ water flush per MD -------- Trial of Osmolite 1.2 continue for now- Goal of 60ml/hr for 20 hrs (4 hrs bowel rest) to provide 1200ml, 1440 kcal, 67g pro, 984ml free H2O, -> Rec to add prosource 1 pack daily (11g pro) to better meet est pro needs. -> Monitor BG, K closely. Pt would require increased insulin coverage as TF at goal would provide 56g more carbs per day. ADDITIONAL RECOMMENDATIONS: * Per SNF: HT=63" KZ=701 lbs (vs EMR wt of 166lbs) -> obtain re-calibrated bedscale wt, rec daily wt monitoring * Wound healing: con't Nephrovite + Garo BID/ Vit C dosing per Nephro * Monitor renal fxn and lytes closely w/ non-renal TF ->K low, phos wnl;updated mag level; rec increased insulin w/ BG labs * Daily wts w/ drop to 118-20 lbs, rec to recalibrate for accurate CBW * Consider DC Miralax if medically appropriate: +rectal tube (11) Uremia (12) CKD (chronic kidney disease) stage 5, GFR less than 15 ml/min (13) Colon distention Assessment & Plan: discussed with GI likely functional as having lots of loose bm rectal tube kub f/u s/p colonoscopy - findings reviewed with GI improved cont diet as tolerated repeat KUB Marked distention of the sigmoid colon. 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 No evidence of bowel wall thickening or pneumatosis 12 mm focus of contrast enhancement in the right pectineus muscle. While nonspecific in appearance, appearance raises concern for a possible pseudoaneurysm. Ill- defined thickening of the pectus medius muscle could indicate some intramuscular hemorrhage. The above findings were phoned to Dr. Urias at the time of interpretation Large bilateral pleural effusions Hazy pulmonary parenchymal opacities as well as dense consolidative opacities most likely represent pulmonary edema, but could represent pneumonia Evidence of anasarca elsewhere, with generalized edema of the subcutaneous fat Bladder wall thickening, raises concern for cystitis. Avalos catheter in place Colonic diverticulosis. No evidence of diverticulitis. Tracheostomy Pacemaker Gastrostomy Gastrostomy again demonstrated in satisfactory position. The stomach is otherwise unremarkable. The distal esophagus and duodenum are unremarkable. Ingested contrast reaches the colon. No small bowel distention or small bowel wall thickening. Interim placement of a rectal tube. There are a few colonic diverticula. No definite evidence of acute diverticulitis. The appendix is prominent in caliber, as previously No free or loculated intraperitoneal gas or fluid is evident. Again demonstrated is marked gaseous distention of the sigmoid colon which measures up to 12.6 cm in diameter, with the proximal aspect located laterally to the distal aspect, and caliber transition in the mesenteric root of both entry points. However, there is stool within the proximal portion which appears to be at least partially contrast opacified, and no definite persisting of the vascular pedicle demonstrated. The liver, gallbladder, bile ducts, pancreas, spleen, adrenals, kidneys are unremarkable. There are accessory splenules demonstrated. No retroperitoneal or mesenteric mass or adenopathy. No pelvic mass or adenopathy. The prostate is enlarged and protrudes into the inferior bladder. The bladder is thick-walled. Previously demonstrated Avalos catheter has been removed. Again demonstrated is a large right pleural effusion and a moderate to large left pleural effusion. Again demonstrated are compressive atelectatic changes of significant portions of both lower lobes. Pacemaker wires are seen within the heart. Previously demonstrated high attenuation focus within the right pectineus muscle is not evident. However, there is a low-attenuation area which measures 2 cm di ameter centrally which is not evident previously. There is diffuse edema of the subcutaneous fat. This is less severe than was demonstrated previously. There are degenerative proliferative changes of the lumbar spine. Impression: Abnormal configuration of the sigmoid colon, with marked distention of a sigmoid, inversion of the relationships of the proximal and descending colon, and evidence of immediately apposed transition point raises concern for sigmoid volvulus. However, similarity to the prior exam, presence of what appears to be contrast opacified stool within the dilated segment, and lack of evidence of twisting of the vascular pedicle raises the possibility that this is baseline for this patient or possibly dysfunctional in nature. Correlate with clinical findings Enlarged prostate with protrusion into the bladder floor. Bladder neoplasm not completely excludable as a result Thick-walled bladder, may indicate cystitis or be due to chronic bladder lumen obstruction related to the above Abnormalities right pectineus muscle, with a 2 cm central low attenuation area. Note that previous exam have a high attenuation focus suspicious for a small pseudoaneurysm. 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 Colonic diverticulosis. No evidence of diverticulitis Gastrostomy in good position Rectal tube in good position Large right and moderate to large left pleural effusions. Resultant compressive pulmonary atelectatic changes or graft edema subcutaneous fat, less severe than was demonstrated on prior 08/17/2019 exam. Jonathan Urias Nov 09, 2019 12:16
--- NOTE | 2019-11-09 13:07 | NUR ---
NURSE NOTES:RECEIVED TELEPHONE REPORT FROM RYDER DAVEY STAFF OF ED.RYDER DAVEY STATING THAT PT IS [place] SPEAKING ONLY AOX4,WITH ETOH WITHDRAWALS,SHAKING AND DX OF BILAT EYES CONJUNCTIVITIS AND GREENISH DISCHARGE. PT IS HOMELESS.COVID -19 RAPID TEST IS NEG.PT WAS SEEN BY DR REYNA IN ED DPT. ACCORDING TO RYDER DAVEY REPORT THERE IS NO WOUNDS NOTED.PT POTASSIUM IS 3.1 AND RYDER DAVEY WILL NOTIFIED ED DOCTOR. A WAITING FOR THE PT TO COME AT [facility] . Addendum: 11/09/19 at 1616 by Tay Johnson RN RN Charted on wrong patient.
--- NOTE | 2019-11-09 15:10 | NUR ---
NURSE NOTES: Made Dr. Ramirez and Dr. Lyle aware of trending up WBC and about the low grade temp from this morning. With new orders for blood and sputum culture, noted and carried out.
[2019-11-09 16:00] VITALS: BP 100/73
--- NOTE | 2019-11-09 17:09 | Nephrology Progress Note ---
Assessment/Plan Plan ESRD - HD TTS + IVF boluses PRN. Anemia of CKD -TUYET. Subjective Subjective Obtunded. Objective Objective Last 24 Hour Vital Signs Date Time Temp Pulse Resp B/P (MAP) Pulse Ox O2 Delivery O2 Flow Rate FiO2 11/09/19 16:00 Mechanical Ventilator 11/09/19 16:00 Mechanical Ventilator 11/09/19 16:00 24 11/09/19 16:00 108 11/09/19 16:00 98.2 111 23 100/73 (82) 100 11/09/19 15:28 106 23 24 11/09/19 12:12 109 18 24 11/09/19 12:00 Mechanical Ventilator 11/09/19 12:00 24 11/09/19 12:00 97.7 106 18 130/64 (86) 100 11/09/19 12:00 105 11/09/19 08:00 24 11/09/19 08:00 Mechanical Ventilator 11/09/19 08:00 117 11/09/19 08:00 98.2 114 24 137/78 (97) 100 11/09/19 07:39 98.5 11/09/19 07:28 101 15 24 11/09/19 04:00 24 11/09/19 04:00 Mechanical Ventilator 11/09/19 04:00 106 11/09/19 04:00 98.5 103 18 143/66 (91) 100 11/09/19 03:05 103 14 24 11/09/19 00:00 98.6 108 17 145/70 (95) 100 11/09/19 00:00 Mechanical Ventilator 11/09/19 00:00 108 11/08/19 22:52 99 17 24 11/08/19 20:00 Mechanical Ventilator 11/08/19 20:00 24 11/08/19 20:00 98.1 96 17 114/54 (74) 100 11/08/19 20:00 97 11/08/19 19:16 101 14 24 Intake and Output 11/08/19 11/09/19 19:00 07:00 Intake Total 585 ml 545 ml Output Total 150 ml Balance 585 ml 395 ml Free Water 180 ml 50 ml Tube Feeding 405 ml 495 ml Stool Total 150 ml Laboratory Tests 11/08/19 17:57: POC Whole Blood Glucose [Pending] 11/08/19 23:44: POC Whole Blood Glucose 197H 11/09/19 02:50: White Blood Count 19.3H, Red Blood Count 3.87L, Hemoglobin 8.8L, Hematocrit 28.7L, Mean Corpuscular Volume 74L, Mean Corpuscular Hemoglobin 22.8L, Mean Corpuscular Hemoglobin Concent 30.6L, Red Cell Distribution Width 18.0H, Platelet Count 596H, Mean Platelet Volume 5.9L, Neutrophils (%) (Auto) , Lymphocytes (%) (Auto) , Monocytes (%) (Auto) , Eosinophils (%) (Auto) , Basophils (%) (Auto) , Differential Total Cells Counted 100, Neutrophils % (Manual) 67, Lymphocytes % (Manual) 20, Monocytes % (Manual) 10, Eosinophils % (Manual) 3, Basophils % (Manual) 0, Band Neutrophils 0, Platelet Estimate IncreasedH, Platelet Morphology Normal, Hypochromasia 2+, Anisocytosis 2+, Microcytosis 1+, Sodium Level 131L, Potassium Level 4.0, Chloride Level 95L, Carbon Dioxide Level 21, Anion Gap 15, Blood Urea Nitrogen 80H, Creatinine 4.4H, Estimat Glomerular Filtration Rate 13.1, Glucose Level 195H, Calcium Level 9.8 11/09/19 05:29: POC Whole Blood Glucose 188H 11/09/19 11:40: POC Whole Blood Glucose 153H Height (Feet): 5 Height (Inches): 10.00 Weight (Pounds): 123 Objective Clammy, diaphoretic CV RR Trach clean Lungs CTA Perma Cath RIJ. Abd SNT. BS + E No CCE Barely responsive Erica iPchardo MD Nov 09, 2019 17:09
--- NOTE | 2019-11-09 17:14 | General Progress Note ---
Subjective Allergies: Coded Allergies: No Known Allergies (Unverified , 06/10/19) Subjective remains ill on vent/ no change on HD vitals noted=remains tachycardic Objective Last 24 Hour Vital Signs Date Time Temp Pulse Resp B/P (MAP) Pulse Ox O2 Delivery O2 Flow Rate FiO2 11/09/19 16:00 Mechanical Ventilator 11/09/19 16:00 Mechanical Ventilator 11/09/19 16:00 24 11/09/19 16:00 108 11/09/19 16:00 98.2 111 23 100/73 (82) 100 11/09/19 15:28 106 23 24 11/09/19 12:12 109 18 24 11/09/19 12:00 Mechanical Ventilator 11/09/19 12:00 24 11/09/19 12:00 97.7 106 18 130/64 (86) 100 11/09/19 12:00 105 11/09/19 08:00 24 11/09/19 08:00 Mechanical Ventilator 11/09/19 08:00 117 11/09/19 08:00 98.2 114 24 137/78 (97) 100 11/09/19 07:39 98.5 11/09/19 07:28 101 15 24 11/09/19 04:00 24 11/09/19 04:00 Mechanical Ventilator 11/09/19 04:00 106 11/09/19 04:00 98.5 103 18 143/66 (91) 100 11/09/19 03:05 103 14 24 11/09/19 00:00 98.6 108 17 145/70 (95) 100 11/09/19 00:00 Mechanical Ventilator 11/09/19 00:00 108 11/08/19 22:52 99 17 24 11/08/19 20:00 Mechanical Ventilator 11/08/19 20:00 24 11/08/19 20:00 98.1 96 17 114/54 (74) 100 11/08/19 20:00 97 11/08/19 19:16 101 14 24 Intake and Output 11/08/19 11/09/19 19:00 07:00 Intake Total 585 ml 545 ml Output Total 150 ml Balance 585 ml 395 ml Free Water 180 ml 50 ml Tube Feeding 405 ml 495 ml Stool Total 150 ml Laboratory Tests 11/08/19 17:57: POC Whole Blood Glucose [Pending] 11/08/19 23:44: POC Whole Blood Glucose 197H 11/09/19 02:50: White Blood Count 19.3H, Red Blood Count 3.87L, Hemoglobin 8.8L, Hematocrit 28.7L, Mean Corpuscular Volume 74L, Mean Corpuscular Hemoglobin 22.8L, Mean Corpuscular Hemoglobin Concent 30.6L, Red Cell Distribution Width 18.0H, Platelet Count 596H, Mean Platelet Volume 5.9L, Neutrophils (%) (Auto) , Lymphocytes (%) (Auto) , Monocytes (%) (Auto) , Eosinophils (%) (Auto) , Basophils (%) (Auto) , Differential Total Cells Counted 100, Neutrophils % (Manual) 67, Lymphocytes % (Manual) 20, Monocytes % (Manual) 10, Eosinophils % (Manual) 3, Basophils % (Manual) 0, Band Neutrophils 0, Platelet Estimate IncreasedH, Platelet Morphology Normal, Hypochromasia 2+, Anisocytosis 2+, Microcytosis 1+, Sodium Level 131L, Potassium Level 4.0, Chloride Level 95L, Carbon Dioxide Level 21, Anion Gap 15, Blood Urea Nitrogen 80H, Creatinine 4.4H, Estimat Glomerular Filtration Rate 13.1, Glucose Level 195H, Calcium Level 9.8 11/09/19 05:29: POC Whole Blood Glucose 188H 11/09/19 11:40: POC Whole Blood Glucose 153H Height (Feet): 5 Height (Inches): 10.00 Weight (Pounds): 123 Objective GENERAL: Ill-appearing male, chronically debilitated. HEENT: Tracheostomy in midline. Questionable fullness in the submandibular region. LUNGS: Coarse breath sounds. reduced breath sounds CARDIAC: S1, S2. Regular rate and rhythm. tachy ABDOMEN: Soft. G-tube. EXTREMITIES: With noted edema. NEUROLOGICAL: Poorly responsive, weak diffusely. Assessment/Plan Assessment/Plan: IMPRESSION: 1. anemia. 2. fevers improved 3. Leukocytosis. 4. hypotension 5. Acute on chronic renal failure. 6. Hyponatremia. 7. Severe protein-calorie malnutrition. 8. Significantly elevated C-reactive protein concerning for infectious etiology. 9. Tracheostomy, G-tube. 10. Ventilator dependence. 11. anasarca 12. Hematuria 13. V pacing 14. hyponatremia 15. transaminitis, HIDA negative PLAN monitor vitals; cards following and control HR antibiotics per ID chronic care; unable to place care noted on vent/ no wean monitor labs and optimize ID follow up - wbc now worse dialysis ongoing- adjust lytes prognosis poor for recovery impression, plan, and exam edited and reviewed in detail care discussed with Kain Tovar MD Nov 09, 2019 17:14
--- NOTE | 2019-11-09 19:35 | NUR ---
NURSE HAND-OFF REPORT: Important Events on Shift: Blood and sputum culture Patient Status: Stable Diet: GT feeding (Nepro) Pending Orders: Pending Results/Labs: Pending MD notification: Latest Vital Signs: Temperature 98.2 , Pulse 111 , B/P 100 /73 , Respiratory Rate 21 , O2 SAT 100 , Mechanical Ventilator, O2 Flow Rate 15.0 . Vital Sign Comment: EKG Rhythm: V-Paced Rhythm change?: N MD Notified?: N - MD Response: Latest Delacruz Fall Score: 70 Fall Risk: High Risk Safety Measures: Call light Within Reach, Bed Alarm Zone 1, Side Rails Side Rails x3, Bed position Low and Locked. Fall Precautions: Yellow Socks Door Sign Patient Fall Education Report given to TAMICA SIM.
--- NOTE | 2019-11-09 19:40 | NUR ---
NURSE NOTES: Received report from TAMICA Cross. Patient asleep, afebrile and no respiratory distress. P responsive to name and tactile stimulation. V paced on 5 lead cardiac/vascular sonographer. On [facility] vent P8, ac 12, TV 550, FiO2 24%, peep 5. Noted also right upper chest dialysis catheter intact and asymptomatic. Dressing intact and clean. With left hand 20g IV lines intact, patent and asymptomatic. On Nephro 45cc/hr x 20 hrs via GT intact and infusing well. Hemodialysis done with 1.5L out. BP WNL. Needs were attended. HOB elevated. Bed rails are up and wheels are locked. Call light within reach. Continue plan of care.
[2019-11-09 20:00] VITALS: BP 133/64
[2019-11-09] MEDS: Dyna-Hex 2% Top Sol 2oz TOPIC SCH (20:28)
--- NOTE | 2019-11-09 21:58 | General Progress Note ---
Subjective Allergies: Coded Allergies: No Known Allergies (Unverified , 06/10/19) Subjective above noted NAD on TF non communicative Objective Last 24 Hour Vital Signs Date Time Temp Pulse Resp B/P (MAP) Pulse Ox O2 Delivery O2 Flow Rate FiO2 11/09/19 20:00 24 11/09/19 20:00 98.2 112 23 133/64 (87) 100 11/09/19 20:00 Mechanical Ventilator 11/09/19 19:43 108 11/09/19 18:30 111 21 24 11/09/19 16:00 Mechanical Ventilator 11/09/19 16:00 Mechanical Ventilator 11/09/19 16:00 24 11/09/19 16:00 108 11/09/19 16:00 98.2 111 23 100/73 (82) 100 11/09/19 15:28 106 23 24 11/09/19 12:12 109 18 24 11/09/19 12:00 Mechanical Ventilator 11/09/19 12:00 24 11/09/19 12:00 97.7 106 18 130/64 (86) 100 11/09/19 12:00 105 11/09/19 08:00 24 11/09/19 08:00 Mechanical Ventilator 11/09/19 08:00 117 11/09/19 08:00 98.2 114 24 137/78 (97) 100 11/09/19 07:39 98.5 11/09/19 07:28 101 15 24 11/09/19 04:00 24 11/09/19 04:00 Mechanical Ventilator 11/09/19 04:00 106 11/09/19 04:00 98.5 103 18 143/66 (91) 100 11/09/19 03:05 103 14 24 11/09/19 00:00 98.6 108 17 145/70 (95) 100 11/09/19 00:00 Mechanical Ventilator 11/09/19 00:00 108 11/08/19 22:52 99 17 24 Intake and Output 11/08/19 11/09/19 19:00 07:00 Intake Total 585 ml 545 ml Output Total 150 ml Balance 585 ml 395 ml Free Water 180 ml 50 ml Tube Feeding 405 ml 495 ml Stool Total 150 ml Laboratory Tests 11/08/19 23:44: POC Whole Blood Glucose 197H 11/09/19 02:50: White Blood Count 19.3H, Red Blood Count 3.87L, Hemoglobin 8.8L, Hematocrit 28.7L, Mean Corpuscular Volume 74L, Mean Corpuscular Hemoglobin 22.8L, Mean Corpuscular Hemoglobin Concent 30.6L, Red Cell Distribution Width 18.0H, Platelet Count 596H, Mean Platelet Volume 5.9L, Neutrophils (%) (Auto) , Lymphocytes (%) (Auto) , Monocytes (%) (Auto) , Eosinophils (%) (Auto) , Basophils (%) (Auto) , Differential Total Cells Counted 100, Neutrophils % (Manual) 67, Lymphocytes % (Manual) 20, Monocytes % (Manual) 10, Eosinophils % (Manual) 3, Basophils % (Manual) 0, Band Neutrophils 0, Platelet Estimate IncreasedH, Platelet Morphology Normal, Hypochromasia 2+, Anisocytosis 2+, Micro cytosis 1+, Sodium Level 131L, Potassium Level 4.0, Chloride Level 95L, Carbon Dioxide Level 21, Anion Gap 15, Blood Urea Nitrogen 80H, Creatinine 4.4H, Estimat Glomerular Filtration Rate 13.1, Glucose Level 195H, Calcium Level 9.8 11/09/19 05:29: POC Whole Blood Glucose 188H 11/09/19 11:40: POC Whole Blood Glucose 153H 11/09/19 17:41: POC Whole Blood Glucose 196H Height (Feet): 5 Height (Inches): 10.00 Weight (Pounds): 123 Objective Debilitated AA man NCAT (+) trach coarse BS RR, tachy abd less distended, anasarca, (+) GT, (+) rectal tube ext contracted Assessment/Plan Assessment/Plan: Assessment - abdominal distention, due to colonic dysmotility, - colonoscopy negative to hepatic flexure - diarrhea - presumed TF related - abnormal LFT - ? etiology --> HIDA negative and CT negative - Anemia - leukocytosis - stool OB (+) - EGD --> gastritis - Renal failure - Anasarca - resp failure, trach - b/l pleural effusions - dysphagia, GT - encephalopathy, contracted - poor px Recommendations - continue TF - check hepatitis markers - negative - rectal tube - roll side to side as feasible (hard due to severe contractions) - Elevate HOB - f/u labs - PPI - supportive care Ronny Mustafa MD Nov 09, 2019 21:58
[2019-11-10] VITALS: BP 119/72
--- NOTE | 2019-11-10 01:30 | NUR ---
NURSE NOTES: Pt was given partial bed bath. Gown and linen were changed. Pt tolerated well. Continue to monitor the patient
[2019-11-10 04:00] VITALS: BP 110/71
--- NOTE | 2019-11-10 04:40 | NUR ---
NURSE NOTES: Pt asleep in bed, afebrile and no respiratory distress noted. G tube feeding tolerating well withotu any residuals. Continue to monitor the patient
[2019-11-10] MEDS: NovoLOG Insulin Flexpen SUBQ SCH ×4 (05:30→23:53)
--- NOTE | 2019-11-10 06:56 | NUR ---
RD ASSESSMENT & RECOMMENDATIONS SEE CARE ACTIVITY FOR COMPLETE ASSESSMENT DAILY ESTIMATED NEEDS: Needs based on Renal, critical care, wound/ 61kg 22-30 kcals/kg 8068-1435 total kcals 1.25-2 g protein/kg 76-122 g total protein Fluid per MD, now on HD mL/kg . total fluid mLs NUTRITION DIAGNOSIS: * Swallowing difficulty R/T respiratory failure, dysphagia as evidenced by trach/vent dep, PEG dep * Increased kcal/prot needs R/T wound healing as evidenced by admitted w/ multiple pressure injuries including full thickness wounds at junction of Shaft of penis, dorsal scrotum, R elbow, and DTPI @ L buttocks, and now w/ DTPI wounds @ L medial hallux, L medial foot, BL heel, and partial thickness wound @ sacrum CURRENT TF:NEPRO @45ml/hr x20 hrs ENTERAL NUTRITION RECOMMENDATIONS: Nepro @45ml/hr x20 hrs + Prosource x1 qdaily to provide 900ml, 1620 kcal, 73g + 11g pro, 654 ml free H2O - Maintain Nepro @goal, as tolerated. - Add PROSOURCE qdaily (11g pro) to better meet est pro needs - Flush per MD/ HOB over 30 degrees. -> If tolerating well, would rec increase to goal of 50ml/hr x20 hrs for 1L, 1800 kcal, 81g pro, 727ml free H2O as daily wts are unclear, and continue to trend wt. ADDITIONAL RECOMMENDATIONS: * Per SNF: HT=63" WA=086 lbs (vs EMR wt of 166lbs) -> obtain re-calibrated bedscale wt, rec daily wt monitoring * Wound healing: add Nephrovite + add Garo BID/ Vit C dosing per Nephro * Monitor lytes, replete as needed * Monitor BGs, consider adding long acting insulin for improved BG control * Monitor stool output, need to change TF again-> less output .
--- NOTE | 2019-11-10 07:10 | NUR ---
NURSE HAND-OFF REPORT: Important Events on Shift: none Patient Status: Stable Diet: nephro at 45cc/hr Pending Orders: n Pending Results/Labs:n Pending MD notification:n Latest Vital Signs: Temperature 98.6 , Pulse 109 , B/P 110 /71 , Respiratory Rate 23 , O2 SAT 100 , Mechanical Ventilator, O2 Flow Rate 15.0 . Vital Sign Comment: EKG Rhythm: V-Paced Rhythm change?: N MD Notified?: N - MD Response: Latest Delacruz Fall Score: 70 Fall Risk: High Risk Safety Measures: Call light Within Reach, Bed Alarm Zone 1, Side Rails Side Rails x3, Bed position Low and Locked. Fall Precautions: Yellow Socks Door Sign Patient Fall Education Report given to Srinivas Storey RN.
--- NOTE | 2019-11-10 07:14 | Hematology/Onc Progress Note ---
Assessment/Plan Assessment/Plan Assessment/recs # Anemia due to chronic disease/kidney disease as well, gi bleed + occult + noted --> was on iron in the past, now on hold --> has been started on Epogen sq --> as per renal care --> egd done and shows gastritis --> on ppi --> egd showed gastritis, colo recently done --> hgb 9-->8. 7-->7.6-->9.2-->8.9-->9.2->9.3-->8.8->9.9-->9.2-->8.1-->8.7-->7.9-->8.6-->8.9--> 8.2->9-->9.3->8.9-->9.5-->10.6->9.2-->10->8.9--> 8.3-->8.9-->9.9-->9.3-->9-->9.3->11-->8.6->8.7>9-->8.4-->9.1-->8.8 --> spep ordered->wnl # Leukocytosis - with multiple infections, VRE UTI, flow is negative --> wbc trend 33-->28-->25->23->22->23->24->17.3-->17-->14->16-->15.6-->14--> 14->13->19->18->17->22->22->19->17-->18->20-->15-->14->16-->14-->17->18-->17->15 -->16-->17->28->19-->21-->19-->23->15-->19 --> on abx, linezolid and zosyn--> zosyn-->gent-->off-->vanc/zosyn-->cefepime/colistin --> + blood cultures with coag neg staph likely contaminated --> as per id recs --> has ordered a flow cytometry (with pathology) --> does show increased nK cell activity --> JOURDAN 2 and bcr-abl labs ordered (these are send outs)->negative --> plt 585-->613-->649-->669->663-->529-->506-->620-->720 # Elevated ddimer on admission --> duplex lower legs neg for dvt # Respiratory failure --> per pulm, s/p trach --> COVID 19 test negative x 2 # Hyperlipidemia --> statin po # Dysphagia s/p gtube with nepro --> per gi # ESRD with r fem julito --> hd as per renal # Dvt ppx heparin sq Appreciate consultation and dw Rn Subjective Constitutional: Denies: no symptoms, chills, fever, malaise, weakness, other HEENT: Denies: no symptoms, eye pain, blurred vision, tearing, double vision, ear pain, ear discharge, nose pain, nose congestion, throat pain, throat swelling, mouth pain, mouth swelling, other Cardiovascular: Denies: no symptoms, chest pain, edema, irregular heart rate, lightheadedness, palpitations, syncope, other Gastrointestinal/Abdominal: Denies: no symptoms, abdomen distended, abdominal pain, black stools, tarry stools, blood in stool, constipated, diarrhea, difficulty swallowing, nausea, poor appetite, poor fluid intake, rectal bleeding, vomiting, other Genitourinary: Denies: no symptoms, burning, discharge, frequency, flank pain, hematuria, incontinence, pain, urgency, other Neurologic/Psychiatric: Denies: no symptoms, anxiety, depressed, emotional problems, headache, numbness, paresthesia, pre-existing deficit, seizure, tingling, tremors, weakness, other Endocrine: Denies: no symptoms, excessive sweating, flushing, intolerance to cold, intolerance to heat, increased hunger, increased thirst, increased urine, unexplained weight gain, unexplained weight loss, other Allergies: Coded Allergies: No Known Allergies (Unverified , 06/10/19) Subjective 08/15 meds noted, no bleeding, hgb 8.8, wbc 28, path flow pending 08/16 flow pending dw pathologist, results pending, wbc 25, hgb 9 08/17 labs reviewed, meds reviewed, meds noted, no night sweats 08/19 remains obtunded, on vent/trach, no bleeding wbc 21.7 08/20 labs have been reviewed, no bleeding, wbc still elev, path reviewed 08/21 labs are noted, no bleeding, on vent, wbc better 08/22 labs noted, no bleeding, meds reviewed, wbc 24 hgb 7.6 08/23 vent, off abx, c diff negative, h/h stable 08/24 labs reviewed, on abx, wbc 17, hgb 8.9, no hemolysis 08/26 reviewed flow and is negative for leukemia, matt rn 08/27 meds reviewed, no night sweats, matt rn, no major bleeding 08/28 meds reivewed, labs noted 08/29 wbc is stable, approx 15, hgb 8.8, no hemolysis 08/30 labs are noted, is for colo today, hgb 9.9 08/31 right fem julito in place, unchanged, hgb 9.2, gi aware 09/01 labs noted, hgb 8.8, plt >600, no bleeding 09/02 labs noted, no bleeding, with elev wbc still, no new changes 09/03 meds are noted, no bleeding, labs reviewed hgb 8.6 09/04 no major events, hd as per renal, abx, no bleeding hgb low 09/05 labs are noted, no bleeding, meds have been reviewed 09/06 no new labs no hemolysis, cbc is noted, no bleeding 09/07 meds reviewed, no bleeding, matt rn, permacath functioning well 09/09 meds reviewed, wbc still elevated, as per id recs, cbc noted 09/10 is obtunded, with gutbe in place, labs reviewed 09/11 obtunded, as per id, observe now off abx, labs noted, wbc 19 09/12 cbc is pending, remains on epogen, also off abx 09/13 labs reviewed, no bleeding, elev wbc, no night sweats 09/14 meds noted, no bleeding, wbc 19, hgb 9.5, no night sweats 09/21 obtunded, remains on vent, labs noted, no bleeding, hgb 8.9 09/22 obtunded, labs noted, no bleeding, on vent, unchanged 09/23 unchanges, wbc remains elevated 20k, on abx, on vent 09/24 labs have been reviewed, no bleeding, wbc 15, may need abx 09/25 formula gtube changed, labs noted, remains obtunded, hgb 9.3 09/26 labs have been reviewed, no bleeding, matt rn, no night sweats 09/27 meds reviewed, no bleeding, wbc 14, on abx, remains obtunded 09/28 remains obtunded, no bleeding, wbc better, hgb 8.9, no hemolysis, plt 506 09/30 on colisitn, wbc elevated, cefepime added per id, hgb stable 10/01 labs reviewed, no bleeding, matt rn, no major events noted, wbc 14, hgb 10.6 10/02 labs have been noted, hgb 9.2, wbc 17, on abx, matt rn 10/03 continue on tube feeds, no bleeding, on vent, wbc remains elevated 10/04 remains ibtunded, is on a mechanical ventilator with tube feeds noted 10/05 labs are noted, hgb 8.6, wbc remains elevated, have ordered for spep 10/07 obtunded on vent, with gtube feeds, labs reviewed, matt rn 10/08 labs are noted, on vent/trach, hgb 10.2, remains obtunded 10/09 labns noted, wbc 15, hgb 8.9, remains altered, on tfs 10/10 labs noted, holding tube feeds, matt rn, hg stable 8.3 currently 10/11 remains on tfs, supportive care, labs noted, no bleeding 10/12 remains obtunded, hgb 8.9, no hemolysis is seen 10/14 labs reviewed, no bleeding, pending potential hd if rn available 10/15 is on vent, with gtube, labs reviewed, no bleeding, to get hd soon 10/16 remains on vent, matt rn at bedside, wbc 15, abx prn, plt also higher, will monitor 10/17 on vent, continue on tube feeds via gtube, labs improved 10/18 labs noted, remains on vent, and tube feeds, no major changes 10/19 nad, no bleeding, labs reviewed, no night sweats, bp elevated, cards aware 10/21 labs pending, with gtube running, on mec vent, abx off 10/22 labs reviewed, no major changes, wbc 18, plt [id number], on gtube feeds 10/23 labs reviewed, meds noted, on epogen and lovenox sq, obtunded, is nv 9.16 labs are noted, wbc 28, hgb 8.6, no hemolysis is noted 10/27 labs reviewed, on mech vent, on gtube feeds, no bleeding wbc 21 10/28 labs noted, wbc 19, plt remains elevated, hd as per renal Dr. Frank 10/29 obtunded, gt feedings on hold, wbc 19, hgb 9, no bleeding 10/30 labs reviewed, no bleeding, wbc 21, hgb 9, hd as per renal care 10/31 labs are noted, wbc 19, hgb 8.4, on vent, obtunded 11/01 obtunded state, no bleeding, meds reviewed, on heparin started today, matt rn 11/02 nv, trach, no bleeding, wbc has increased likely due to infection 11/03 is off abx, no bleeding, meds noted, no hemolysis seen, wbc 15 11/04 meds noted, no bleeding, dw rn 11/06 no residual, labs reviewed, no night sweats, no hemoptysis 11/07 labs are noted, wbc 18, hgb 9, no hemolysis 11/08 is obtunded, stable, nv, getting hd today in am 11/09 labs reviewed, remains obtunded, cbc has been ordered for today Objective Objective Current Medications Medications (Trade) Dose Ordered Sig/Leonel Route PRN Reason Start Time Stop Time Status Last Admin Dose Admin Acetaminophen (Tylenol) 650 mg Q6H PRN GT Temp >100.5 10/21/19 20:45 11/20/19 20:44 11/09/19 06:46 Chlorhexidine Gluconate (Felipa-Hex 2%) 1 applic DAILY@2000 TOPIC 09/12/19 20:00 12/11/19 19:59 11/09/19 20:28 Clonidine HCl (Catapres Tab) 0.1 mg Q4H PRN GT For High Blood Pressure 09/09/19 12:30 12/08/19 05:29 09/15/19 04:10 Epoetin Andreas (Epoetin Andreas(ESRD on dialysis)) 8,000 unit WED-WED-WED SUBQ 10/25/19 21:00 01/23/20 20:59 11/08/19 20:47 Famotidine (Pepcid) 20 mg DAILY GT 08/30/19 09:00 11/28/19 08:59 11/09/19 09:20 Heparin Sodium (Porcine) (Heparin 5000 units/ml) 5,000 units EVERY 12 HOURS SUBQ 11/02/19 09:00 12/17/19 08:59 11/09/19 20:29 Insulin Aspart (NovoLOG) Q6HR SUBQ 11/08/19 00:00 02/06/20 00:00 11/10/19 05:30 Lactobacillus Acidophilus (Culturelle) 1 tab EVERY 12 HOURS GT 10/03/19 21:00 12/13/19 17:59 11/09/19 20:28 Loperamide HCl (Imodium) 2 mg Q6H PRN NG Diarrhea 10/15/19 07:45 11/14/19 07:44 Sodium Chloride 500 ml @ 999 mls/hr Q31M PRN IV sbp<90 10/28/19 21:30 11/27/19 21:29 Last 24 Hour Vital Signs Date Time Temp Pulse Resp B/P (MAP) Pulse Ox O2 Delivery O2 Flow Rate FiO2 11/10/19 04:00 24 11/10/19 04:00 Mechanical Ventilator 11/10/19 04:00 98.6 109 23 110/71 (84) 100 11/10/19 03:28 111 11/10/19 02:31 111 24 24 11/10/19 00:00 Mechanical Ventilator 11/10/19 00:00 111 11/10/19 00:00 97.8 109 23 119/72 (88) 100 11/09/19 22:35 110 21 24 11/09/19 20:00 24 11/09/19 20:00 98.2 112 23 133/64 (87) 100 11/09/19 20:00 Mechanical Ventilator 11/09/19 19:43 108 11/09/19 18:30 111 21 24 11/09/19 16:00 Mechanical Ventilator 11/09/19 16:00 Mechanical Ventilator 11/09/19 16:00 24 11/09/19 16:00 108 11/09/19 16:00 98.2 111 23 100/73 (82) 100 11/09/19 15:28 106 23 24 11/09/19 12:12 109 18 24 11/09/19 12:00 Mechanical Ventilator 11/09/19 12:00 24 11/09/19 12:00 97.7 106 18 130/64 (86) 100 11/09/19 12:00 105 11/09/19 08:00 24 11/09/19 08:00 Mechanical Ventilator 11/09/19 08:00 117 11/09/19 08:00 98.2 114 24 137/78 (97) 100 11/09/19 07:39 98.5 11/09/19 07:28 101 15 24 11/09/19 04:00 24 11/09/19 04:00 Mechanical Ventilator 11/09/19 04:00 106 11/09/19 04:00 98.5 103 18 143/66 (91) 100 11/09/19 03:05 103 14 24 11/09/19 00:00 98.6 108 17 145/70 (95) 100 11/09/19 00:00 Mechanical Ventilator 11/09/19 00:00 108 11/08/19 22:52 99 17 24 11/08/19 20:00 Mechanical Ventilator 11/08/19 20:00 24 11/08/19 20:00 98.1 96 17 114/54 (74) 100 11/08/19 20:00 97 11/08/19 19:16 101 14 24 11/08/19 16:08 99.0 11/08/19 16:00 106 11/08/19 16:00 24 11/08/19 16:00 99.0 106 15 122/73 (89) 100 11/08/19 16:00 Mechanical Ventilator 11/08/19 15:17 103 16 24 11/08/19 12:00 99.5 114 15 97/63 (74) 100 11/08/19 12:00 24 11/08/19 12:00 112 11/08/19 12:00 Mechanical Ventilator 11/08/19 10:54 113 16 24 11/08/19 08:00 107 11/08/19 08:00 Mechanical Ventilator 11/08/19 08:00 98.2 105 18 115/61 (79) 100 11/08/19 08:00 24 11/08/19 07:25 109 16 24 Intake and Output 11/09/19 11/10/19 19:00 07:00 Intake Total 45 ml 525 ml Output Total 1800 ml 50 ml Balance -1755 ml 475 ml Free Water 30 ml Tube Feeding 45 ml 495 ml Stool Total 300 ml 50 ml Hemodialysis UF 1500 ml Labs Test 11/07/19 12:52 11/07/19 18:48 11/07/19 23:23 11/08/19 03:05 POC Whole Blood Glucose 173 MG/DL (74-106) 147 MG/DL (74-106) 216 MG/DL (74-106) White Blood Count 17.5 K/UL (4.8-10.8) Red Blood Count 3.90 M/UL (4.70-6.10) Hemoglobin 9.0 G/DL (14.2-18.0) Hematocrit 29.1 % (42.0-52.0) Mean Corpuscular Volume 75 FL (80-99) Mean Corpuscular Hemoglobin 23.1 PG (27.0-31.0) Mean Corpuscular Hemoglobin Concent 30.8 G/DL (32.0-36.0) Red Cell Distribution Width 17.8 % (11.6-14.8) Platelet Count 627 K/UL (150-450) Mean Platelet Volume 5.9 FL (6.5-10.1) Neutrophils (%) (Auto) 78.3 % (45.0-75.0) Lymphocytes (%) (Auto) 9.3 % (20.0-45.0) Monocytes (%) (Auto) 10.7 % (1.0-10.0) Eosinophils (%) (Auto) 0.7 % (0.0-3.0) Basophils (%) (Auto) 1.0 % (0.0-2.0) Sodium Level 134 MMOL/L (136-145) Potassium Level 3.9 MMOL/L (3.5-5.1) Chloride Level 97 MMOL/L (98-107) Carbon Dioxide Level 25 MMOL/L (21-32) Anion Gap 12 mmol/L (5-15) Blood Urea Nitrogen 56 mg/dL (7-18) Creatinine 3.4 MG/DL (0.55-1.30) Estimat Glomerular Filtration Rate 17.6 mL/min (>60) Glucose Level 195 MG/DL (74-106) Calcium Level 9.2 MG/DL (8.5-10.1) Phosphorus Level 2.5 MG/DL (2.5-4.9) Test 11/08/19 05:17 11/08/19 12:01 11/08/19 17:57 11/08/19 23:44 POC Whole Blood Glucose 220 MG/DL (74-106) 197 MG/DL (74-106) Test 11/09/19 02:50 11/09/19 05:29 11/09/19 11:40 11/09/19 17:41 White Blood Count 19.3 K/UL (4.8-10.8) Red Blood Count 3.87 M/UL (4.70-6.10) Hemoglobin 8.8 G/DL (14.2-18.0) Hematocrit 28.7 % (42.0-52.0) Mean Corpuscular Volume 74 FL (80-99) Mean Corpuscular Hemoglobin 22.8 PG (27.0-31.0) Mean Corpuscular Hemoglobin Concent 30.6 G/DL (32.0-36.0) Red Cell Distribution Width 18.0 % (11.6-14.8) Platelet Count 596 K/UL (150-450) Mean Platelet Volume 5.9 FL (6.5-10.1) Neutrophils (%) (Auto) % (45.0-75.0) Lymphocytes (%) (Auto) % (20.0-45.0) Monocytes (%) (Auto) % (1.0-10.0) Eosinophils (%) (Auto) % (0.0-3.0) Basophils (%) (Auto) % (0.0-2.0) Differential Total Cells Counted 100 Neutrophils % (Manual) 67 % (45-75) Lymphocytes % (Manual) 20 % (20-45) Monocytes % (Manual) 10 % (1-10) Eosinophils % (Manual) 3 % (0-3) Basophils % (Manual) 0 % (0-2) Band Neutrophils 0 % (0-8) Platelet Estimate Increased Platelet Morphology Normal Hypochromasia 2+ Anisocytosis 2+ Microcytosis 1+ Sodium Level 131 MMOL/L (136-145) Potassium Level 4.0 MMOL/L (3.5-5.1) Chloride Level 95 MMOL/L (98-107) Carbon Dioxide Level 21 MMOL/L (21-32) Anion Gap 15 mmol/L (5-15) Blood Urea Nitrogen 80 mg/dL (7-18) Creatinine 4.4 MG/DL (0.55-1.30) Estimat Glomerular Filtration Rate 13.1 mL/min (>60) Glucose Level 195 MG/DL (74-106) Calcium Level 9.8 MG/DL (8.5-10.1) POC Whole Blood Glucose 188 MG/DL (74-106) 153 MG/DL (74-106) 196 MG/DL (74-106) Test 11/09/19 23:09 11/10/19 05:28 POC Whole Blood Glucose 206 MG/DL (74-106) 209 MG/DL (74-106) Height (Feet): 5 Height (Inches): 10.00 Weight (Pounds): 123 Objective Physical Exam General Appearance: nad, Chronically Ill Head: normocephalic Eyes: right eye PERRL - Will not open left eye ENT: moist mucus membranes Neck: other - submandibular mass R, fairly rigid with resistance to rotation to L, tracheotomy Respiratory: decreased breath sounds, crackles, other - pacemaker, vent+ Cardiovascular: regular rate, rhythm, edema - anasarca Gastrointestinal: non tender, distended, other - G tube Genitourinary: other ++rectal tube Musculoskeletal: other - Contractures all extremities Neurologic: sensory intact, motor weakness, responsive Psychiatric: other Skin: Decubitus/Ulcer - Stage III right elbow, stage III left elbow, stage II sacrum, stage III scrotum, warm/dry Fitz Campos MD Nov 10, 2019 07:14
--- NOTE | 2019-11-10 07:24 | NUR ---
NURSE NOTES: Received report from TAMICA Wang. Patient is resting in bed, in stable condition. No s/sx of SOB, breathing is even and unlabored, vent settings as ordered. Patient is nonverbal, sleeping, observed no presence of pain or discomfort at this time. Bed is in lowest position, brakes engaged. Call light is kept within easy reach. Will continue to monitor patient.
[2019-11-10 08:00] VITALS: BP 124/73
--- NOTE | 2019-11-10 08:27 | General Progress Note ---
Subjective ROS Limited/Unobtainable: Yes Allergies: Coded Allergies: No Known Allergies (Unverified , 06/10/19) Subjective remains ill on vent/ no change on HD vitals noted=remains tachycardic Objective Last 24 Hour Vital Signs Date Time Temp Pulse Resp B/P (MAP) Pulse Ox O2 Delivery O2 Flow Rate FiO2 11/10/19 07:00 115 27 24 11/10/19 04:00 24 11/10/19 04:00 Mechanical Ventilator 11/10/19 04:00 98.6 109 23 110/71 (84) 100 11/10/19 03:28 111 11/10/19 02:31 111 24 24 11/10/19 00:00 Mechanical Ventilator 11/10/19 00:00 111 11/10/19 00:00 97.8 109 23 119/72 (88) 100 11/09/19 22:35 110 21 24 11/09/19 20:00 24 11/09/19 20:00 98.2 112 23 133/64 (87) 100 11/09/19 20:00 Mechanical Ventilator 11/09/19 19:43 108 11/09/19 18:30 111 21 24 11/09/19 16:00 Mechanical Ventilator 11/09/19 16:00 Mechanical Ventilator 11/09/19 16:00 24 11/09/19 16:00 108 11/09/19 16:00 98.2 111 23 100/73 (82) 100 11/09/19 15:28 106 23 24 11/09/19 12:12 109 18 24 11/09/19 12:00 Mechanical Ventilator 11/09/19 12:00 24 11/09/19 12:00 97.7 106 18 130/64 (86) 100 11/09/19 12:00 105 Intake and Output 11/09/19 11/10/19 19:00 07:00 Intake Total 45 ml 525 ml Output Total 1800 ml 50 ml Balance -1755 ml 475 ml Free Water 30 ml Tube Feeding 45 ml 495 ml Stool Total 300 ml 50 ml Hemodialysis UF 1500 ml Laboratory Tests 11/09/19 11:40: POC Whole Blood Glucose 153H 11/09/19 17:41: POC Whole Blood Glucose 196H 11/09/19 23:09: POC Whole Blood Glucose 206H 11/10/19 05:28: POC Whole Blood Glucose 209H Height (Feet): 5 Height (Inches): 10.00 Weight (Pounds): 123 Objective GENERAL: Ill-appearing male, chronically debilitated. HEENT: Tracheostomy in midline. Questionable fullness in the submandibular region. LUNGS: Coarse breath sounds. reduced breath sounds CARDIAC: S1, S2. Regular rate and rhythm. tachy ABDOMEN: Soft. G-tube. EXTREMITIES: With noted edema. NEUROLOGICAL: Poorly responsive, weak diffusely. Assessment/Plan Assessment/Plan: IMPRESSION: 1. anemia. 2. fevers improved 3. Leukocytosis. 4. hypotension 5. Acute on chronic renal failure. 6. Hyponatremia. 7. Severe protein-calorie malnutrition. 8. Significantly elevated C-reactive protein concerning for infectious etiology. 9. Tracheostomy, G-tube. 10. Ventilator dependence. 11. anasarca 12. Hematuria 13. V pacing 14. hyponatremia 15. transaminitis, HIDA negative PLAN monitor vitals; cards following and control HR antibiotics per ID chronic care; unable to place care noted on vent/ no wean monitor labs and optimize ID follow up - wbc followup dialysis ongoing- adjust lytes prognosis poor for recovery impression, plan, and exam edited and reviewed in detail care discussed with Kain Tovar MD Nov 10, 2019 08:27
[2019-11-10] MEDS: Lactobacillus-GG tablet GT SCH ×2 (08:30→20:23)
[2019-11-10] MEDS: Heparin 5000 units/ml inj SUBQ SCH ×2 (08:32→20:25)
[2019-11-10 08:49] LABS: HEMOGLOBIN 9.2 G/DL (14.2-18.0); MEAN CORPUSCULAR VOLUME 75 FL (80-99); PLATELET COUNT 595 K/UL (150-450); RED BLOOD COUNT 4.02 M/UL (4.70-6.10); RED CELL DISTRIBUTION WIDTH 18.3 % (11.6-14.8); WHITE BLOOD COUNT 21.7 K/UL (4.8-10.8)
--- NOTE | 2019-11-10 11:24 | Infectious Diseases Prog Note ---
"Assessment/Plan Assessment/Plan antibiotics : none A 1. morganella | klebsiella pneumonia s/p rx 2. respiratory failure 3. leucocytosis increased 4. COVID 19 test negative x 2 5. renal failure on HD P 1. start iv vancomycin, cefepime 2. stool for c.diff 3. blood culture 4. sputum culture 5. will follow up cultures Subjective ROS Limited/Unobtainable: Yes Allergies: Coded Allergies: No Known Allergies (Unverified , 06/10/19) Objective Last 24 Hour Vital Signs Date Time Temp Pulse Resp B/P (MAP) Pulse Ox O2 Delivery O2 Flow Rate FiO2 11/10/19 08:00 Mechanical Ventilator 11/10/19 08:00 98.4 121 23 124/73 (90) 100 11/10/19 08:00 24 11/10/19 07:00 115 27 24 11/10/19 04:00 24 11/10/19 04:00 Mechanical Ventilator 11/10/19 04:00 98.6 109 23 110/71 (84) 100 11/10/19 03:28 111 11/10/19 02:31 111 24 24 11/10/19 00:00 Mechanical Ventilator 11/10/19 00:00 111 11/10/19 00:00 97.8 109 23 119/72 (88) 100 11/09/19 22:35 110 21 24 11/09/19 20:00 24 11/09/19 20:00 98.2 112 23 133/64 (87) 100 11/09/19 20:00 Mechanical Ventilator 11/09/19 19:43 108 11/09/19 18:30 111 21 24 11/09/19 16:00 Mechanical Ventilator 11/09/19 16:00 Mechanical Ventilator 11/09/19 16:00 24 11/09/19 16:00 108 11/09/19 16:00 98.2 111 23 100/73 (82) 100 11/09/19 15:28 106 23 24 11/09/19 12:12 109 18 24 11/09/19 12:00 Mechanical Ventilator 11/09/19 12:00 24 11/09/19 12:00 97.7 106 18 130/64 (86) 100 11/09/19 12:00 105 Height (Feet): 5 Height (Inches): 10.00 Weight (Pounds): 123 HEENT: status post trach Respiratory/Chest: lungs clear Cardiovascular: normal rate, regular rhythm, no gallop/murmur Abdomen: soft, non tender, other - GT Extremities: no edema, other - right subclavian catheter Laboratory Tests Test 11/09/19 11:40 11/09/19 17:41 11/09/19 23:09 11/10/19 05:28 POC Whole Blood Glucose 153 MG/DL (74-106) H 196 MG/DL (74-106) H 206 MG/DL (74-106) H 209 MG/DL (74-106) H Test 11/10/19 08:20 White Blood Count 21.7 K/UL (4.8-10.8) H Red Blood Count 4.02 M/UL (4.70-6.10) L Hemoglobin 9.2 G/DL (14.2-18.0) L Hematocrit 30.0 % (42.0-52.0) L Mean Corpuscular Volume 75 FL (80-99) L Mean Corpuscular Hemoglobin 23.0 PG (27.0-31.0) L Mean Corpuscular Hemoglobin Concent 30.8 G/DL (32.0-36.0) L Red Cell Distribution Width 18.3 % (11.6-14.8) H Platelet Count 595 K/UL (150-450) H Mean Platelet Volume 6.0 FL (6.5-10.1) L Neutrophils (%) (Auto) % (45.0-75.0) Lymphocytes (%) (Auto) % (20.0-45.0) Monocytes (%) (Auto) % (1.0-10.0) Eosinophils (%) (Auto) % (0.0-3.0) Basophils (%) (Auto) % (0.0-2.0) Differential Total Cells Counted 100 Neutrophils % (Manual) 74 % (45-75) Lymphocytes % (Manual) 15 % (20-45) L Monocytes % (Manual) 9 % (1-10) Eosinophils % (Manual) 1 % (0-3) Basophils % (Manual) 1 % (0-2) Band Neutrophils 0 % (0-8) Nucleated Red Blood Cells 1 /100 WBC Platelet Estimate Increased H Platelet Morphology Normal Hypochromasia 2+ Anisocytosis 2+ Microcytosis 1+ Current Medications Medications (Trade) Dose Ordered Sig/Leonel Route PRN Reason Start Time Stop Time Status Last Admin Dose Admin Acetaminophen (Tylenol) 650 mg Q6H PRN GT Temp >100.5 10/21/19 20:45 11/20/19 20:44 11/09/19 06:46 Chlorhexidine Gluconate (Felipa-Hex 2%) 1 applic DAILY@2000 TOPIC 09/12/19 20:00 12/11/19 19:59 11/09/19 20:28 Clonidine HCl (Catapres Tab) 0.1 mg Q4H PRN GT For High Blood Pressure 09/09/19 12:30 12/08/19 05:29 09/15/19 04:10 Epoetin Andreas (Epoetin Andreas(ESRD on dialysis)) 8,000 unit WED-WED-WED SUBQ 10/25/19 21:00 01/23/20 20:59 11/08/19 20:47 Famotidine (Pepcid) 20 mg DAILY GT 08/30/19 09:00 11/28/19 08:59 11/10/19 08:30 Heparin Sodium (Porcine) (Heparin 5000 units/ml) 5,000 units EVERY 12 HOURS SUBQ 11/02/19 09:00 12/17/19 08:59 11/10/19 08:32 Insulin Aspart (NovoLOG) Q6HR SUBQ 11/08/19 00:00 02/06/20 00:00 11/10/19 05:30 Lactobacillus Acidophilus (Culturelle) 1 tab EVERY 12 HOURS GT 10/03/19 21:00 12/13/19 17:59 11/10/19 08:30 Loperamide HCl (Imodium) 2 mg Q6H PRN NG Diarrhea 10/15/19 07:45 11/14/19 07:44 Sodium Chloride 500 ml @ 999 mls/hr Q31M PRN IV sbp<90 10/28/19 21:30 11/27/19 21:29 Farnaz Lyle MD Nov 10, 2019 11:24"
--- NOTE | 2019-11-10 11:37 | Surgery Progress Note ---
Surgery Progress Note Subjective Procedure Performed Right femoral temporary hemodialysis catheter removal Additional Comments persistent leukocytosis no n/v labs reviewed exam unchanged Objective Last 24 Hour Vital Signs Date Time Temp Pulse Resp B/P (MAP) Pulse Ox O2 Delivery O2 Flow Rate FiO2 11/10/19 08:00 Mechanical Ventilator 11/10/19 08:00 98.4 121 23 124/73 (90) 100 11/10/19 08:00 24 11/10/19 07:29 118 11/10/19 07:00 115 27 24 11/10/19 04:00 24 11/10/19 04:00 Mechanical Ventilator 11/10/19 04:00 98.6 109 23 110/71 (84) 100 11/10/19 03:28 111 11/10/19 02:31 111 24 24 11/10/19 00:00 Mechanical Ventilator 11/10/19 00:00 111 11/10/19 00:00 97.8 109 23 119/72 (88) 100 11/09/19 22:35 110 21 24 11/09/19 20:00 24 11/09/19 20:00 98.2 112 23 133/64 (87) 100 11/09/19 20:00 Mechanical Ventilator 11/09/19 19:43 108 11/09/19 18:30 111 21 24 11/09/19 16:00 Mechanical Ventilator 11/09/19 16:00 Mechanical Ventilator 11/09/19 16:00 24 11/09/19 16:00 108 11/09/19 16:00 98.2 111 23 100/73 (82) 100 11/09/19 15:28 106 23 24 11/09/19 12:12 109 18 24 11/09/19 12:00 Mechanical Ventilator 11/09/19 12:00 24 11/09/19 12:00 97.7 106 18 130/64 (86) 100 11/09/19 12:00 105 I&O Intake and Output 11/09/19 11/10/19 19:00 07:00 Intake Total 45 ml 525 ml Output Total 1800 ml 50 ml Balance -1755 ml 475 ml Free Water 30 ml Tube Feeding 45 ml 495 ml Stool Total 300 ml 50 ml Hemodialysis UF 1500 ml Dressing: saturated Cardiovascular: RSR Respiratory: decreased breath sounds Abdomen: non-tender, present bowel sounds Extremities: no edema, no tenderness, other Laboratory Tests Test 11/09/19 11:40 11/09/19 17:41 11/09/19 23:09 11/10/19 05:28 POC Whole Blood Glucose 153 MG/DL (74-106) H 196 MG/DL (74-106) H 206 MG/DL (74-106) H 209 MG/DL (74-106) H Test 11/10/19 08:20 White Blood Count 21.7 K/UL (4.8-10.8) H Red Blood Count 4.02 M/UL (4.70-6.10) L Hemoglobin 9.2 G/DL (14.2-18.0) L Hematocrit 30.0 % (42.0-52.0) L Mean Corpuscular Volume 75 FL (80-99) L Mean Corpuscular Hemoglobin 23.0 PG (27.0-31.0) L Mean Corpuscular Hemoglobin Concent 30.8 G/DL (32.0-36.0) L Red Cell Distribution Width 18.3 % (11.6-14.8) H Platelet Count 595 K/UL (150-450) H Mean Platelet Volume 6.0 FL (6.5-10.1) L Neutrophils (%) (Auto) % (45.0-75.0) Lymphocytes (%) (Auto) % (20.0-45.0) Monocytes (%) (Auto) % (1.0-10.0) Eosinophils (%) (Auto) % (0.0-3.0) Basophils (%) (Auto) % (0.0-2.0) Differential Total Cells Counted 100 Neutrophils % (Manual) 74 % (45-75) Lymphocytes % (Manual) 15 % (20-45) L Monocytes % (Manual) 9 % (1-10) Eosinophils % (Manual) 1 % (0-3) Basophils % (Manual) 1 % (0-2) Band Neutrophils 0 % (0-8) Nucleated Red Blood Cells 1 /100 WBC Platelet Estimate Increased H Platelet Morphology Normal Hypochromasia 2+ Anisocytosis 2+ Microcytosis 1+ Plan Problems: (1) Anemia (2) Hyponatremia (3) Leukocytosis Assessment & Plan: Tracheostomy, left chest pacemaker are again demonstrated. There is bilateral interstitial and airspace disease and bilateral pleural fluid again demonstrated. This appears more severe than on the prior study. Bilateral interstitial and airspace infiltrates versus edema. Bilateral pleural effusions Leukocytosis, anemia, tachycardia, abnormal labs. Wound evaluated and likely etiology of patient's sepsis. Leukocytosis etiology work-up antibiotics per infectious disease Appreciate nephrology input transfuse with dialysis We will follow with recommendations thank you allowing participation's care plan HD access temp HD discussed with medical teams line okay HD as per renal persistent leukocytosis flow cyto noted improving trending down right fem line removed wbc fluctuating h/h stable lft's elevated There is a right pleural effusion Gallbladder demonstrates tiny wall adherent nonmobile echogenic foci, some possible mural calcifications, and comet tail artifact in the anterior wall. Patient unable to report sonographic Kent's sign. Common bile duct measures 4 mm in diameter. No intrahepatic biliary ductal dilatation. Liver demonstrates normal echogenicity, no focal abnormality. There is some surface nodularity. Portal vein and hepatic veins are patent. Pancreas is incompletely visualized due to overlying bowel gas, visualized portions are unremarkable. Spleen is unremarkable. Left kidney measures 8.7 cm in length. Right kidney measures 8.9 cm length. Both kidneys demonstrate increased echogenicity. There is no hydronephrosis. No focal abnormality . Abdominal aorta is partially obscured by bowel gas, visualized portions are non-aneurysmal . A gastrostomy is noted Impression: Tiny wall adherent nonmobile gallbladder echogenic foci, may reflect wall adherent calculi, small polyps, and/or pleural calcifications. Anterior wall comet tail artifact suggests foci of adenomyomatosis. Normal caliber common bile duct Possible hepatic surface nodularity, could indicate cirrhotic change Echogenic kidneys, consistent with medical renal disease. No hydronephrosis Right pleural effusion Gastrostomy Note nonvisualization of portions of the pancreas and abdominal aorta HIDA NEGATIVE trend labs (4) Ventilator dependent (5) Right lower lobe pneumonia (6) Hypokalemia (7) Hyperkalemia (8) Anasarca (9) Decubitus skin ulcer Assessment & Plan: pt presented on admission with generalized edemae.Skin assessed under tracheostomy and no areas of concerns noted. GT Insertion is marginally erythematous with small amt slough at stoma. Unstageable Pressure Injury R elbow. Base of wound is 100% yellow slough,Borders are erythematous. Wound oozing small amt haemopurulent exudate.Darker skin tone without elevation in skin temp or erythema periwound. Pt's penis and scrotum are grossly edematous and enlarged and weeping serous exudate from numerous sites both from penis and scrotum. Two small open wounds noted at base of at base of shaft of penis ,and contreras aspect of scrotum. Both wounds oozing large amt sanguineous and serosanguineous exudate. Multiple open wounds with Biofilm at base of each wounds noted to contreras/lateral,inferior and posterior aspects of scrotum. These wounds noted to be oozing moderate amts of serosanguineous exudate. Hypertrophic scar with scattered areas of hyperpigmentation noted to Sacrum. DTPI noted to L Buttocks (L)7cm x (W)9cm. Base of wound is purple and indurated.Darker skin tone without erythema,induration or fluctuance R and L ischial tuberosities. Both heels are boggy with non-blanchable erythema. potential decline given chronic illness Tx.Plan: Cleanse wound R elbow with Saline. Apply TheraHoney, Apply Moisture Barrier Paste periwound. Cover with Optifoam drsg.Change Daily and prn. Wash GT site with soap and water.Pat dry. Apply Zinc Oxide Paste to GT site Daily. Leave Open to Air. Apply Zinc Oxide Paste to entire Scrotum, Place ABD pads to R and L lateral, and posterior aspects of scrotum TWICE daily. Apply Cavilon Skin Barrier to malleoli and both Heels. Cover each site with Optifoam drsgs. Change every 7 days and prn. Reposition at least every 2hours or as tolerated. Off-load heels with Pillows. APM/BECCA Mattress overlay. (10) Malnutrition Assessment & Plan: DAILY ESTIMATED NEEDS: Needs based on Renal, critical care, wound/ 61kg 22-30 kcals/kg 2418-5087 total kcals 1.25-2 g protein/kg 76-122 g total protein Fluid per MD, now on HD NUTRITION DIAGNOSIS: * Swallowing difficulty R/T respiratory failure, dysphagia as evidenced by trach/vent dep, PEG dep * Increased kcal/prot needs R/T wound healing as evidenced by admitted w/ multiple pressure injuries including full thickness wounds at junction of Shaft of penis, dorsal scrotum, R elbow, and DTPI @ L buttocks. CURRENT TF:Osmolite 1.2 @ 60ml/hr x 20 hrs + Garo BID ENTERAL NUTRITION RECOMMENDATIONS: Vital AF 1.2 @ 60ml/hr x 20 hrs to provide 1200ml, 1440kcal, 90g prot, 973ml free water * Rec 20 hr run time for GI rest. -> W/ improved GI status, rec Vital AF 1.2, an elemental and carb controlled TF -> monitor lytes and renal fxn closely, monitor need for renal TF -> TF @ goal will provide 1642mg K and 2025mg Phos -> HOB over 30 degrees/ water flush per MD -------- Trial of Osmolite 1.2 continue for now- Goal of 60ml/hr for 20 hrs (4 hrs bowel rest) to provide 1200ml, 1440 kcal, 67g pro, 984ml free H2O, -> Rec to add prosource 1 pack daily (11g pro) to better meet est pro needs. -> Monitor BG, K closely. Pt would require increased insulin coverage as TF at goal would provide 56g more carbs per day. ADDITIONAL RECOMMENDATIONS: * Per SNF: HT=63" VB=119 lbs (vs EMR wt of 166lbs) -> obtain re-calibrated bedscale wt, rec daily wt monitoring * Wound healing: con't Nephrovite + Garo BID/ Vit C dosing per Nephro * Monitor renal fxn and lytes closely w/ non-renal TF ->K low, phos wnl;updated mag level; rec increased insulin w/ BG labs * Daily wts w/ drop to 118-20 lbs, rec to recalibrate for accurate CBW * Consider DC Miralax if medically appropriate: +rectal tube (11) Uremia (12) CKD (chronic kidney disease) stage 5, GFR less than 15 ml/min (13) Colon distention Assessment & Plan: discussed with GI likely functional as having lots of loose bm rectal tube kub f/u s/p colonoscopy - findings reviewed with GI improved cont diet as tolerated repeat KUB Marked distention of the sigmoid colon. 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 No evidence of bowel wall thickening or pneumatosis 12 mm focus of contrast enhancement in the right pectineus muscle. While nonspecific in appearance, appearance raises concern for a possible pseudoaneurysm. Ill- defined thickening of the pectus medius muscle could indicate some intramuscular hemorrhage. The above findings were phoned to Dr. Urias at the time of interpretation Large bilateral pleural effusions Hazy pulmonary parenchymal opacities as well as dense consolidative opacities most likely represent pulmonary edema, but could represent pneumonia Evidence of anasarca elsewhere, with generalized edema of the subcutaneous fat Bladder wall thickening, raises concern for cystitis. Avalos catheter in place Colonic diverticulosis. No evidence of diverticulitis. Tracheostomy Pacemaker Gastrostomy Gastrostomy again demonstrated in satisfactory position. The stomach is otherwise unremarkable. The distal esophagus and duodenum are unremarkable. Ingested contrast reaches the colon. No small bowel distention or small bowel wall thickening. Interim placement of a rectal tube. There are a few colonic diverticula. No definite evidence of acute diverticulitis. The appendix is prominent in caliber, as previously No free or loculated intraperitoneal gas or fluid is evident. Again demonstrated is marked gaseous distention of the sigmoid colon which measures up to 12.6 cm in diameter, with the proximal aspect located laterally to the distal aspect, and caliber transition in the mesenteric root of both entry points. However, there is stool within the proximal portion which appears to be at least partia lly contrast opacified, and no definite persisting of the vascular pedicle demonstrated. The liver, gallbladder, bile ducts, pancreas, spleen, adrenals, kidneys are unremarkable. There are accessory splenules demonstrated. No retroperitoneal or mesenteric mass or adenopathy. No pelvic mass or adenopathy. The prostate is enlarged and protrudes into the inferior bladder. The bladder is thick-walled. Previously demonstrated Avalos catheter has been removed. Again demonstrated is a large right pleural effusion and a moderate to large left pleural effusion. Again demonstrated are compressive atelectatic changes of significant portions of both lower lobes. Pacemaker wires are seen within the heart. Previously demonstrated high attenuation focus within the right pectineus muscle is not evident. However, there is a low-attenuation area which measures 2 cm diameter centrally which is not evident previously. There is diffuse edema of the subcutaneous fat. This is less severe than was demonstrated previously. There are degenerative proliferative changes of the lumbar spine. Impression: Abnormal configuration of the sigmoid colon, with marked distention of a sigmoid, inversion of the relationships of the proximal and descending colon, and evidence of immediately apposed transition point raises concern for sigmoid volvulus. However, similarity to the prior exam, presence of what appears to be contrast opacified stool within the dilated segment, and lack of evidence of twisting of the vascular pedicle raises the possibility that this is baseline for this patient or possibly dysfunctional in nature. Correlate with clinical findings Enlarged prostate with protrusion into the bladder floor. Bladder neoplasm not completely excludable as a result Thick-walled bladder, may indicate cystitis or be due to chronic bladder lumen obstruction related to the above Abnormalities right pectineus muscle, with a 2 cm central low attenuation area. Note that previous exam have a high attenuation focus suspicious for a small pseudoaneurysm. 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 Colonic diverticulosis. No evidence of diverticulitis Gastrostomy in good position Rectal tube in good position Large right and moderate to large left pleural effusions. Resultant compressive pulmonary atelectatic changes or graft edema subcutaneous fat, less severe than was demonstrated on prior 08/17/2019 exam. Jonathan Urias Nov 10, 2019 11:37
[2019-11-10 12:00] VITALS: BP 115/69
--- NOTE | 2019-11-10 13:00 | NUR ---
INSURANCE FAXED REVIEWS TO [employer] MGT DATES 11/09/19 FX [phone] PH [phone] EXT 192 (ERICA Gomez
[2019-11-10] MEDS: Cefepime HCl 1 GM in D5W 55 ML IVPB SCH (13:04)
--- NOTE | 2019-11-10 13:22 | Nephrology Progress Note ---
Assessment/Plan Plan ESRD - HD TTS + IVF boluses PRN. Anemia of CKD -TUYET. Subjective Subjective Obtunded. Objective Objective Last 24 Hour Vital Signs Date Time Temp Pulse Resp B/P (MAP) Pulse Ox O2 Delivery O2 Flow Rate FiO2 11/10/19 11:20 119 23 24 11/10/19 08:00 Mechanical Ventilator 11/10/19 08:00 98.4 121 23 124/73 (90) 100 11/10/19 08:00 24 11/10/19 07:29 118 11/10/19 07:00 115 27 24 11/10/19 04:00 24 11/10/19 04:00 Mechanical Ventilator 11/10/19 04:00 98.6 109 23 110/71 (84) 100 11/10/19 03:28 111 11/10/19 02:31 111 24 24 11/10/19 00:00 Mechanical Ventilator 11/10/19 00:00 111 11/10/19 00:00 97.8 109 23 119/72 (88) 100 11/09/19 22:35 110 21 24 11/09/19 20:00 24 11/09/19 20:00 98.2 112 23 133/64 (87) 100 11/09/19 20:00 Mechanical Ventilator 11/09/19 19:43 108 11/09/19 18:30 111 21 24 11/09/19 16:00 Mechanical Ventilator 11/09/19 16:00 Mechanical Ventilator 11/09/19 16:00 24 11/09/19 16:00 108 11/09/19 16:00 98.2 111 23 100/73 (82) 100 11/09/19 15:28 106 23 24 Intake and Output 11/09/19 11/10/19 19:00 07:00 Intake Total 45 ml 525 ml Output Total 1800 ml 50 ml Balance -1755 ml 475 ml Free Water 30 ml Tube Feeding 45 ml 495 ml Stool Total 300 ml 50 ml Hemodialysis UF 1500 ml Laboratory Tests 11/09/19 17:41: POC Whole Blood Glucose 196H 11/09/19 23:09: POC Whole Blood Glucose 206H 11/10/19 05:28: POC Whole Blood Glucose 209H 11/10/19 08:20: White Blood Count 21.7H, Red Blood Count 4.02L, Hemoglobin 9.2L, Hematocrit 30.0L, Mean Corpuscular Volume 75L, Mean Corpuscular Hemoglobin 23.0L, Mean Co rpuscular Hemoglobin Concent 30.8L, Red Cell Distribution Width 18.3H, Platelet Count 595H, Mean Platelet Volume 6.0L, Neutrophils (%) (Auto) , Lymphocytes (%) (Auto) , Monocytes (%) (Auto) , Eosinophils (%) (Auto) , Basophils (%) (Auto) , Differential Total Cells Counted 100, Neutrophils % (Manual) 74, Lymphocytes % (Manual) 15L, Monocytes % (Manual) 9, Eosinophils % (Manual) 1, Basophils % (Manual) 1, Band Neutrophils 0, Nucleated Red Blood Cells 1, Platelet Estimate IncreasedH, Platelet Morphology Normal, Hypochromasia 2+, Anisocytosis 2+, Microcytosis 1+ 11/10/19 12:14: POC Whole Blood Glucose 211H Height (Feet): 5 Height (Inches): 10.00 Weight (Pounds): 123 Objective Clammy, diaphoretic CV RR Trach clean Lungs CTA Perma Cath RIJ. Abd SNT. BS + E No CCE Barely responsive Erica Pichardo MD Nov 10, 2019 13:22
[2019-11-10] MEDS ORDERED: Vancomycin 1gm/D5W 275ml IVPB ONE ×2 (14:00)
[2019-11-10] MEDS: Acetaminophen 650mg/20.3ml GT PRN (15:03)
[2019-11-10 15:14] VITALS: BP 127/67
--- NOTE | 2019-11-10 15:24 | NUR ---
NURSE NOTES: Called [facility] nephrology, spoke with Campbell. Informed Campbell that patient has hemodialysis order for tomorrow 11/11/[address] Pichardo. Campbell acknowledged and informed this nurse that hemodialysis nurse on-call will be notified. Noted in dialysis log book. Will continue to monitor patient.
--- NOTE | 2019-11-10 19:10 | NUR ---
NURSE NOTES: Received report from TAMICA Espino. Patient asleep, afebrile and no respiratory distress. P responsive to name and tactile stimulation. V paced on 5 lead shelter monitor. On [facility] vent P8, ac 12, TV 550, FiO2 24%, peep 5. Noted also right upper chest dialysis catheter intact and asymptomatic. Dressing intact and clean. With right hand 22g IV line intact, patent and asymptomatic. On Nephro 45cc/hr x 20 hrs via GT intact and infusing well. Needs were attended. HOB elevated. Bed rails are up and wheels are locked. Call light within reach. Continue plan of care.
--- NOTE | 2019-11-10 19:20 | NUR ---
NURSE HAND-OFF REPORT: Important Events on Shift: Patient Status: Stable Diet: Nepro 45 ml/hr Pending Orders: None Pending Results/Labs:None Pending MD notification:None Latest Vital Signs: Temperature 99.3 , Pulse 112 , B/P 127 /67 , Respiratory Rate 20 , O2 SAT 100 , Mechanical Ventilator, O2 Flow Rate 15.0 . Vital Sign Comment: Stable EKG Rhythm: V-Paced Rhythm change?: N MD Notified?: N - MD Response: Latest Delacruz Fall Score: 70 Fall Risk: High Risk Safety Measures: Call light Within Reach, Bed Alarm Zone 1, Side Rails Side Rails x3, Bed position Low and Locked. Fall Precautions: Yellow Socks Door Sign Patient Fall Education Report given to TAMICA Wang.
[2019-11-10 20:00] VITALS: BP 100/50
[2019-11-10] MEDS: Dyna-Hex 2% Top Sol 2oz TOPIC SCH (20:23)
[2019-11-10] MEDS: Epoetin Alfa-EPBX(ESRD on dialysis)4000 units/ml vial SUBQ SCH (21:40)
--- NOTE | 2019-11-10 21:45 | NUR ---
HAND-OFF: Report given to TAMICA Jordan.
--- NOTE | 2019-11-10 21:50 | NUR ---
NURSE NOTES: Received patient and report from RONEY RN. Patient is asleep with no acute distress noted. Tolerating well with current vent settings.o2 sat 98-100%. vss. Afebrile.will continue to monitor.
--- NOTE | 2019-11-10 22:20 | General Progress Note ---
Subjective Allergies: Coded Allergies: No Known Allergies (Unverified , 06/10/19) Subjective above noted NAD on TF non communicative Objective Last 24 Hour Vital Signs Date Time Temp Pulse Resp B/P (MAP) Pulse Ox O2 Delivery O2 Flow Rate FiO2 11/10/19 20:00 24 11/10/19 20:00 98.8 94 20 100/50 (67) 100 11/10/19 20:00 Mechanical Ventilator 11/10/19 19:47 97 11/10/19 19:44 99 22 24 11/10/19 17:15 99.3 11/10/19 16:00 24 11/10/19 16:00 112 11/10/19 16:00 Mechanical Ventilator 11/10/19 15:33 100.2 11/10/19 15:14 102.0 117 20 127/67 (87) 100 11/10/19 15:10 107 23 24 11/10/19 12:00 Mechanical Ventilator 11/10/19 12:00 24 11/10/19 12:00 99.0 118 20 115/69 (84) 100 11/10/19 12:00 119 11/10/19 11:20 119 23 24 11/10/19 08:00 Mechanical Ventilator 11/10/19 08:00 98.4 121 23 124/73 (90) 100 11/10/19 08:00 24 11/10/19 07:29 118 11/10/19 07:00 115 27 24 11/10/19 04:00 24 11/10/19 04:00 Mechanical Ventilator 11/10/19 04:00 98.6 109 23 110/71 (84) 100 11/10/19 03:28 111 11/10/19 02:31 111 24 24 11/10/19 00:00 Mechanical Ventilator 11/10/19 00:00 111 11/10/19 00:00 97.8 109 23 119/72 (88) 100 11/09/19 22:35 110 21 24 Intake and Output 11/09/19 11/10/19 19:00 07:00 Intake Total 45 ml 570 ml Output Total 1800 ml 50 ml Balance -1755 ml 520 ml Free Water 30 ml Tube Feeding 45 ml 540 ml Stool Total 300 ml 50 ml Hemodialysis UF 1500 ml Laboratory Tests 11/09/19 23:09: POC Whole Blood Glucose 206H 11/10/19 05:28: POC Whole Blood Glucose 209H 11/10/19 08:20: White Blood Count 21.7H, Red Blood Count 4.02L, Hemoglobin 9.2L, Hematocrit 30.0L, Mean Corpuscular Volume 75L, Mean Corpuscular Hemoglobin 23.0L, Mean Corpuscular Hemoglobin Concent 30.8L, Red Cell Distribution Width 18.3H, Platelet Count 595H, Mean Platelet Volume 6.0L, Neutrophils (%) (Auto) , Lymphocytes (%) (Auto) , Monocytes (%) (Auto) , Eosinophils (%) (Auto) , Basophils (%) (Auto) , Differential Total Cells Counted 100, Neutrophils % (Manual) 74, Lymphocytes % (Manual) 15L, Monocytes % (Manual) 9, Eosinophils % (Manual) 1, Basophils % (Manual) 1, Band Neutrophils 0, Nucleated Red Blood Cells 1, Platelet Estimate IncreasedH, Platelet Morphology Normal, Hypochromasia 2+, Anisocytosis 2+, Microcytosis 1+ 11/10/19 12:14: POC Whole Blood Glucose 211H 11/10/19 17:06: POC Whole Blood Glucose 240H Height (Feet): 5 Height (Inches): 10.00 Weight (Pounds): 123 Objective Debilitated AA man NCAT (+) trach coarse BS RR, tachy abd less distended, anasarca, (+) GT, (+) rectal tube ext contracted Assessment/Plan Assessment/Plan: Assessment - abdominal distention, due to colonic dysmotility, - colonoscopy negative to hepatic flexure - diarrhea - presumed TF related - abnormal LFT - ? etiology --> HIDA negative and CT negative - Anemia - leukocytosis - stool OB (+) - EGD --> gastritis - Renal failure - Anasarca - resp failure, trach - b/l pleural effusions - dysphagia, GT - encephalopathy, contracted - poor px Recommendations - continue TF - check hepatitis markers - negative - rectal tube - roll side to side as feasible (hard due to severe contractions) - Elevate HOB - f/u labs - PPI - supportive care - I will return Mon to see pt Ronny Mustafa MD Nov 10, 2019 22:19
[2019-11-11] VITALS: BP 98/58
--- NOTE | 2019-11-11 01:30 | NUR ---
NURSE NOTES: Sponge bath given with using CHG. No acute distress with current vent settings. o2 sat 96-100%. no s/s of pain at this time.
[2019-11-11 04:00] VITALS: BP 143/78
[2019-11-11 05:16] LABS: HEMATOCRIT 34.1 % (42.0-52.0); HEMOGLOBIN 10.6 G/DL (14.2-18.0); MEAN CORPUSCULAR VOLUME 75 FL (80-99); PLATELET COUNT 599 K/UL (150-450); RED BLOOD COUNT 4.56 M/UL (4.70-6.10); RED CELL DISTRIBUTION WIDTH 18.7 % (11.6-14.8)
[2019-11-11 05:36] LABS: WHITE BLOOD COUNT 22.2 K/UL (4.8-10.8)
[2019-11-11 05:53] LABS: CALCIUM 10.2 MG/DL (8.5-10.1); CREATININE 4.2 MG/DL (0.55-1.30); POTASSIUM 3.7 MMOL/L (3.5-5.1)
[2019-11-11] MEDS ORDERED: Heparin Sod 1000 units/ml 10ml IV PRN (06:00)
[2019-11-11] MEDS ORDERED: Heparin 1000 units/ml 1ml Vial INJ PRN (06:00)
[2019-11-11] MEDS: NovoLOG Insulin Flexpen SUBQ SCH ×3 (06:10→18:28)
--- NOTE | 2019-11-11 07:30 | NUR ---
NURSE HAND-OFF REPORT: Important Events on Shift: Patient Status:stable Diet:GTF with Nepro at 45cc/hr Pending Orders:NO Pending Results/Labs:NO Pending MD notification:NO Latest Vital Signs: Temperature 98.2 , Pulse 109 , B/P 143 /78 , Respiratory Rate 24 , O2 SAT 98 , Mechanical Ventilator, O2 Flow Rate 15.0 . Vital Sign Comment:stable EKG Rhythm: V-Paced Rhythm change?: N MD Notified?: N - MD Response: Latest Delacruz Fall Score: 70 Fall Risk: High Risk Safety Measures: Call light Within Reach, Bed Alarm Zone 1, Side Rails Side Rails x3, Bed position Low and Locked. Fall Precautions: Yellow Socks Door Sign Patient Fall Education Report given to TAMICA MOORE.
--- NOTE | 2019-11-11 07:42 | General Progress Note ---
Subjective ROS Limited/Unobtainable: No Allergies: Coded Allergies: No Known Allergies (Unverified , 06/10/19) Objective Last 24 Hour Vital Signs Date Time Temp Pulse Resp B/P (MAP) Pulse Ox O2 Delivery O2 Flow Rate FiO2 11/11/19 04:00 98.2 109 24 143/78 (99) 98 11/11/19 04:00 24 11/11/19 04:00 Mechanical Ventilator 11/11/19 04:00 98 11/11/19 03:18 110 24 24 11/11/19 00:00 Mechanical Ventilator 11/11/19 00:00 24 11/11/19 00:00 98.4 95 23 98/58 (71) 98 11/11/19 00:00 94 11/10/19 23:58 93 21 24 11/10/19 20:00 24 11/10/19 20:00 98.8 94 20 100/50 (67) 100 11/10/19 20:00 Mechanical Ventilator 11/10/19 19:47 97 11/10/19 19:44 99 22 24 11/10/19 17:15 99.3 11/10/19 16:00 24 11/10/19 16:00 112 11/10/19 16:00 Mechanical Ventilator 11/10/19 15:33 100.2 11/10/19 15:14 102.0 117 20 127/67 (87) 100 11/10/19 15:10 107 23 24 11/10/19 12:00 Mechanical Ventilator 11/10/19 12:00 24 11/10/19 12:00 99.0 118 20 115/69 (84) 100 11/10/19 12:00 119 11/10/19 11:20 119 23 24 11/10/19 08:00 Mechanical Ventilator 11/10/19 08:00 98.4 121 23 124/73 (90) 100 11/10/19 08:00 24 Intake and Output 11/10/19 11/11/19 19:00 07:00 Intake Total 750 ml Output Total 100 ml Balance 650 ml Free Water 200 ml IV Total 55 ml Tube Feeding 495 ml Stool Total 100 ml Laboratory Tests 11/10/19 08:20: White Blood Count 21.7H, Red Blood Count 4.02L, Hemoglobin 9.2L, Hematocrit 30.0L, Mean Corpuscular Volume 75L, Mean Corpuscular Hemoglobin 23.0L, Mean Corpuscular Hemoglobin Concent 30.8L, Red Cell Distribution Width 18.3H, Platelet Count 595H, Mean Platelet Volume 6.0L, Neutrophils (%) (Auto) , Lymphocytes (%) (Auto) , Monocytes (%) (Auto) , Eosinophils (%) (Auto) , Basophils (%) (Auto) , Differential Total Cells Counted 100, Neutrophils % (Manual) 74, Lymphocytes % (Manual) 15L, Monocytes % (Manual) 9, Eosinophils % (Manual) 1, Basophils % (Manual) 1, Band Neutrophils 0, Nucleated Red Blood Cells 1, Platelet Estimate IncreasedH, Platelet Morphology Normal, Hypochromasia 2+, Anisocytosis 2+, Microcytosis 1+ 11/10/19 12:14: POC Whole Blood Glucose 211H 11/10/19 17:06: POC Whole Blood Glucose 240H 11/10/19 23:44: POC Whole Blood Glucose 224H 11/11/19 03:45: Sodium Level 134L, Potassium Level 3.7, Chloride Level 98, Carbon Dioxide Level 20L, Anion Gap 16H, Blood Urea Nitrogen 84H, Creatinine 4.2H, Estimat Glomerular Filtration Rate 13.8, Glucose Level 188H, Calcium Level 10.2H 11/11/19 04:20: White Blood Count 22.2*H, Red Blood Count 4.56L, Hemoglobin 10.6L, Hematocrit 34.1L, Mean Corpuscular Volume 75L, Mean Corpuscular Hemoglobin 23.2L, Mean Corpuscular Hemoglobin Concent 31.0L, Red Cell Distribution Width 18.7H, Platelet Count 599H, Mean Platelet Volume 6.6, Neutrophils (%) (Auto) , Lymphocytes (%) (Auto) , Monocytes (%) (Auto) , Eosinophils (%) (Auto) , Basophils (%) (Auto) , Neutrophils % (Manual) [Pending], Lymphocytes % (Manual) [Pending], Platelet Estimate [Pending], Platelet Morphology [Pending] 11/11/19 05:42: POC Whole Blood Glucose 226H Height (Feet): 5 Height (Inches): 10.00 Weight (Pounds): 123 General Appearance: lethargic EENT: normal ENT inspection Neck: supple Cardiovascular: normal rate Respiratory/Chest: decreased breath sounds Abdomen: hypoactive bowel sounds Extremities: non-tender Assessment/Plan Assessment/Plan: Assessment - abdominal distention, due to colonic dysmotility, - colonoscopy negative to hepatic flexure - diarrhea - presumed TF related - abnormal LFT - ? etiology --> HIDA negative and CT negative - Anemia - leukocytosis - stool OB (+) - EGD --> gastritis - Renal failure - Anasarca - resp failure, trach - b/l pleural effusions - dysphagia, GT - encephalopathy, contracted - poor px Recommendations - continue TF - check hepatitis markers - negative - rectal tube - roll side to side as feasible (hard due to severe contractions) - Elevate HOB - f/u labs - PPI - supportive care Deon Landry MD Nov 11, 2019 07:42
[2019-11-11 08:00] VITALS: BP 131/65
[2019-11-11] MEDS: Lactobacillus-GG tablet GT SCH ×2 (08:49→22:08)
[2019-11-11] MEDS: Heparin 5000 units/ml inj SUBQ SCH ×2 (08:50→22:10)
--- NOTE | 2019-11-11 09:10 | Surgery Progress Note ---
Surgery Progress Note Subjective Procedure Performed Right femoral temporary hemodialysis catheter removal Additional Comments ill appearing Objective Last 24 Hour Vital Signs Date Time Temp Pulse Resp B/P (MAP) Pulse Ox O2 Delivery O2 Flow Rate FiO2 11/11/19 07:15 111 24 24 11/11/19 04:00 98.2 109 24 143/78 (99) 98 11/11/19 04:00 24 11/11/19 04:00 Mechanical Ventilator 11/11/19 04:00 98 11/11/19 03:18 110 24 24 11/11/19 00:00 Mechanical Ventilator 11/11/19 00:00 24 11/11/19 00:00 98.4 95 23 98/58 (71) 98 11/11/19 00:00 94 11/10/19 23:58 93 21 24 11/10/19 20:00 24 11/10/19 20:00 98.8 94 20 100/50 (67) 100 11/10/19 20:00 Mechanical Ventilator 11/10/19 19:47 97 11/10/19 19:44 99 22 24 11/10/19 17:15 99.3 11/10/19 16:00 24 11/10/19 16:00 112 11/10/19 16:00 Mechanical Ventilator 11/10/19 15:33 100.2 11/10/19 15:14 102.0 117 20 127/67 (87) 100 11/10/19 15:10 107 23 24 11/10/19 12:00 Mechanical Ventilator 11/10/19 12:00 24 11/10/19 12:00 99.0 118 20 115/69 (84) 100 11/10/19 12:00 119 11/10/19 11:20 119 23 24 I&O Intake and Output 11/10/19 11/11/19 19:00 07:00 Intake Total 750 ml 690 ml Output Total 100 ml 200 ml Balance 650 ml 490 ml Free Water 200 ml 150 ml IV Total 55 ml Tube Feeding 495 ml 540 ml Stool Total 100 ml 200 ml Dressing: other Wound: other Cardiovascular: RSR Respiratory: decreased breath sounds Abdomen: soft, non-tender, present bowel sounds Extremities: no tenderness, no cyanosis Laboratory Tests Test 11/10/19 12:14 11/10/19 17:06 11/10/19 23:44 11/11/19 03:45 POC Whole Blood Glucose 211 MG/DL (74-106) H 240 MG/DL (74-106) H 224 MG/DL (74-106) H Sodium Level 134 MMOL/L (136-145) L Potassium Level 3.7 MMOL/L (3.5-5.1) Chloride Level 98 MMOL/L (98-107) Carbon Dioxide Level 20 MMOL/L (21-32) L Anion Gap 16 mmol/L (5-15) H Blood Urea Nitrogen 84 mg/dL (7-18) H Creatinine 4.2 MG/DL (0.55-1.30) H Estimat Glomerular Filtration Rate 13.8 mL/min (>60) Glucose Level 188 MG/DL (74-106) H Calcium Level 10.2 MG/DL (8.5-10.1) H Test 11/11/19 04:20 11/11/19 05:42 White Blood Count 22.2 K/UL (4.8-10.8) *H Red Blood Count 4.56 M/UL (4.70-6.10) L Hemoglobin 10.6 G/DL (14.2-18.0) L Hematocrit 34.1 % (42.0-52.0) L Mean Corpuscular Volume 75 FL (80-99) L Mean Corpuscular Hemoglobin 23.2 PG (27.0-31.0) L Mean Corpuscular Hemoglobin Concent 31.0 G/DL (32.0-36.0) L Red Cell Distribution Width 18.7 % (11.6-14.8) H Platelet Count 599 K/UL (150-450) H Mean Platelet Volume 6.6 FL (6.5-10.1) Neutrophils (%) (Auto) % (45.0-75.0) Lymphocytes (%) (Auto) % (20.0-45.0) Monocytes (%) (Auto) % (1.0-10.0) Eosinophils (%) (Auto) % (0.0-3.0) Basophils (%) (Auto) % (0.0-2.0) Differential Total Cells Counted 100 Neutrophils % (Manual) 80 % (45-75) H Lymphocytes % (Manual) 13 % (20-45) L Monocytes % (Manual) 5 % (1-10) Eosinophils % (Manual) 0 % (0-3) Basophils % (Manual) 0 % (0-2) Band Neutrophils 2 % (0-8) Platelet Estimate Adequate Platelet Morphology Normal Polychromasia 1+ Hypochromasia 2+ Microcytosis 2+ POC Whole Blood Glucose 226 MG/DL (74-106) H Plan Problems: (1) Anemia (2) Hyponatremia (3) Leukocytosis Assessment & Plan: Tracheostomy, left chest pacemaker are again demonstrated. There is bilateral interstitial and airspace disease and bilateral pleural fluid again demonstrated. This appears more severe than on the prior study. Bilateral interstitial and airspace infiltrates versus edema. Bilateral pleural effusions Leukocytosis, anemia, tachycardia, abnormal labs. Wound evaluated and likely etiology of patient's sepsis. Leukocytosis etiology work-up antibiotics per infectious disease Appreciate nephrology input transfuse with dialysis We will follow with recommendations thank you allowing participation's care plan HD access temp HD discussed with medical teams line okay HD as per renal persistent leukocytosis flow cyto noted improving trending down right fem line removed wbc fluctuating h/h stable lft's elevated There is a right pleural effusion Gallbladder demonstrates tiny wall adherent nonmobile echogenic foci, some possible mural calcifications, and comet tail artifact in the anterior wall. Patient unable to report sonographic Kent's sign. Common bile duct measures 4 mm in diameter. No intrahepatic biliary ductal dilatation. Liver demonstrates normal echogenicity, no focal abnormality. There is some surface nodularity. Portal vein and hepatic veins are patent. Pancreas is incompletely visualized due to overlying bowel gas, visualized portions are unremarkable. Spleen is unremarkable. Left kidney measures 8.7 cm in length. Right kidney measures 8.9 cm length. Both kidneys demonstrate increased echogenicity. There is no hydronephrosis. No focal abnormality . Abdominal aorta is partially obscured by bowel gas, visualized portions are non-aneurysmal . A gastrostomy is noted Impression: Tiny wall adherent nonmobile gallbladder echogenic foci, may reflect wall adherent calculi, small polyps, and/or pleural calcifications. Anterior wall comet tail artifact suggests foci of adenomyomatosis. Normal caliber common bile duct Possible hepatic surface nodularity, could indicate cirrhotic change Echogenic kidneys, consistent with medical renal disease. No hydronephrosis Right pleural effusion Gastrostomy Note nonvisualization of portions of the pancreas and abdominal aorta HIDA NEGATIVE trend labs (4) Ventilator dependent (5) Right lower lobe pneumonia (6) Hypokalemia (7) Hyperkalemia (8) Anasarca (9) Decubitus skin ulcer Assessment & Plan: pt presented on admission with generalized edemae.Skin assessed under tracheostomy and no areas of concerns noted. GT Insertion is marginally erythematous with small amt slough at stoma. Unstageable Pressure Injury R elbow. Base of wound is 100% yellow slough,Borders are erythematous. Wound oozing small amt haemopurulent exudate.Darker skin tone without elevation in skin temp or erythema periwound. Pt's penis and scrotum are grossly edematous and enlarged and weeping serous exudate from numerous sites both from penis and scrotum. Two small open wounds noted at base of at base of shaft of penis ,and contreras aspect of scrotum. Both wounds oozing large amt sanguineous and serosanguineous exudate. Multiple open wounds with Biofilm at base of each wounds noted to contreras/lateral,inferior and posterior aspects of scrotum. These wounds noted to be oozing moderate amts of serosanguineous exudate. Hypertrophic scar with scattered areas of hyperpigmentation noted to Sacrum. DTPI noted to L Buttocks (L)7cm x (W)9cm. Base of wound is purple and indurated.Darker skin tone without erythema,induration or fluctuance R and L ischial tuberosities. Both heels are boggy with non-blanchable erythema. potential decline given chronic illness Tx.Plan: Cleanse wound R elbow with Saline. Apply TheraHoney, Apply Moisture Barrier Paste periwound. Cover with Optifoam drsg.Change Daily and prn. Wash GT site with soap and water.Pat dry. Apply Zinc Oxide Paste to GT site Daily. Leave Open to Air. Apply Zinc Oxide Paste to entire Scrotum, Place ABD pads to R and L lateral, and posterior aspects of scrotum TWICE daily. Apply Cavilon Skin Barrier to malleoli and both Heels. Cover each site with Optifoam drsgs. Change every 7 days and prn. Reposition at least every 2hours or as tolerated. Off-load heels with Pillows. APM/BECCA Mattress overlay. (10) Malnutrition Assessment & Plan: DAILY ESTIMATED NEEDS: Needs based on Renal, critical care, wound/ 61kg 22-30 kcals/kg [id number] total kcals 1.25-2 g protein/kg 76-122 g total protein Fluid per MD, now on HD NUTRITION DIAGNOSIS: * Swallowing difficulty R/T respiratory failure, dysphagia as evidenced by trach/vent dep, PEG dep * Increased kcal/prot needs R/T wound healing as evidenced by admitted w/ multiple pressure injuries including full thickness wounds at junction of Shaft of penis, dorsal scrotum, R elbow, and DTPI @ L buttocks. CURRENT TF:Osmolite 1.2 @ 60ml/hr x 20 hrs + Garo BID ENTERAL NUTRITION RECOMMENDATIONS: Vital AF 1.2 @ 60ml/hr x 20 hrs to provide 1200ml, 1440kcal, 90g prot, 973ml free water * Rec 20 hr run time for GI rest. -> W/ improved GI status, rec Vital AF 1.2, an elemental and carb controlled TF -> monitor lytes and renal fxn closely, monitor need for renal TF -> TF @ goal will provide 1642mg K and 2025mg Phos -> HOB over 30 degrees/ water flush per MD -------- Trial of Osmolite 1.2 continue for now- Goal of 60ml/hr for 20 hrs (4 hrs bowel rest) to provide 1200ml, 1440 kcal, 67g pro, 984ml free H2O, -> Rec to add prosource 1 pack daily (11g pro) to better meet est pro needs. -> Monitor BG, K closely. Pt would require increased insulin coverage as TF at goal would provide 56g more carbs per day. ADDITIONAL RECOMMENDATIONS: * Per SNF: HT=63" QQ=369 lbs (vs EMR wt of 166lbs) -> obtain re-calibrated bedscale wt, rec daily wt monitoring * Wound healing: con't Nephrovite + Garo BID/ Vit C dosing per Nephro * Monitor renal fxn and lytes closely w/ non-renal TF ->K low, phos wnl;updated mag level; rec increased insulin w/ BG labs * Daily wts w/ drop to 118-20 lbs, rec to recalibrate for accurate CBW * Consider DC Miralax if medically appropriate: +rectal tube (11) Uremia (12) CKD (chronic kidney disease) stage 5, GFR less than 15 ml/min (13) Colon distention Assessment & Plan: discussed with GI likely functional as having lots of loose bm rectal tube kub f/u s/p colonoscopy - findings reviewed with GI improved cont diet as tolerated repeat KUB Marked distention of the sigmoid colon. 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 No evidence of bowel wall thickening or pneumatosis 12 mm focus of contrast enhancement in the right pectineus muscle. While nonspecific in appearance, appearance raises concern for a possible pseudoaneurysm. Ill- defined thickening of the pectus medius muscle could indicate some intramuscular hemorrhage. The above findings were phoned to Dr. Urias at the time of interpretation Large bilateral pleural effusions Hazy pulmonary parenchymal opacities as well as dense consolidative opacities most likely represent pulmonary edema, but could represent pneumonia Evidence of anasarca elsewhere, with generalized edema of the subcutaneous fat Bladder wall thickening, raises concern for cystitis. Avalos catheter in place Colonic diverticulosis. No evidence of diverticulitis. Tracheostomy Pacemaker Gastrostomy Gastrostomy again demonstrated in satisfactory position. The stomach is otherwise unremarkable. The distal esophagus and duodenum are unremarkable. Ingested contrast reaches the colon. No small bowel distention or small bowel wall thickening. Interim placement of a rectal tube. There are a few colonic diverticula. No definite evidence of acute diverticulitis. The appendix is prominent in caliber, as previously No free or loculated intraperitoneal gas or fluid is evident. Again demonstrated is marked gaseous distention of the sigmoid colon which measures up to 12.6 cm in diameter, with the proximal aspect located laterally to the distal aspect, and caliber transition in the mesenteric root of both entry points. However, there is stool within the proximal portion which appears to be at least partially contrast opacified, and no definite persisting of the vascular pedicle demonstrated. The liver, gallbladder, bile ducts, pancreas, spleen, adrenals, kidneys are unremarkable. There are accessory splenules demonstrated. No retroperitoneal or mesenteric mass or adenopathy. No pelvic mass or adenopathy. The prostate is enlarged and protrudes into the inferior bladder. The bladder is thick-walled. Previously demonstrated Avalos catheter has been removed. Again demonstrated is a large right pleural effusion and a moderate to large left pleural effusion. Again demonstrated are compressive atelectatic changes of significant portions of both lower lobes. Pacemaker wires are seen within the heart. Previously demonstrated high attenuation focus within the right pectineus muscle is not evident. However, there is a low-attenuation area which measures 2 cm diameter centrally which is not evident previously. There is diffuse edema of the subcutaneous fat. This is less severe than was demonstrated previously. There are degenerative proliferative changes of the lumbar spine. Impression: Abnormal configuration of the sigmoid colon, with marked distention of a sigmoid, inversion of the relationships of the proximal and descending colon, and evidence of immediately apposed transition point raises concern for sigmoid volvulus. However, similarity to the prior exam, presence of what appears to be contrast opacified stool within the dilated segment, and lack of evidence of twisting of the vascular pedicle raises the possibility that this is baseline for this patient or possibly dysfunctional in nature. Correlate with clinical findings Enlarged prostate with protrusion into the bladder floor. Bladder neoplasm not completely excludable as a result Thick-walled bladder, may indicate cystitis or be due to chronic bladder lumen obstruction related to the above Abnormalities right pectineus muscle, with a 2 cm central low attenuation area. Note that previous exam have a high attenuation focus suspicious for a small pseudoaneurysm. 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 Colonic diverticulosis. No evidence of diverticulitis Gastrostomy in good position Rectal tube in good position Large right and moderate to large left pleural effusions. Resultant compressive pulmonary atelectatic changes or graft edema subcutaneous fat, less severe than was demonstrated on prior 08/17/2019 exam. Jonathan Urias Nov 11, 2019 09:10
--- NOTE | 2019-11-11 10:13 | Pulmonology Progress Note ---
Subjective ROS Limited/Unobtainable: No Constitutional: Denies: fever Gastrointestinal/Abdominal: Reports: diarrhea Allergies: Coded Allergies: No Known Allergies (Unverified , 06/10/19) All Systems: reviewed and negative except above Objective Last 24 Hour Vital Signs Date Time Temp Pulse Resp B/P (MAP) Pulse Ox O2 Delivery O2 Flow Rate FiO2 11/11/19 07:15 111 24 24 11/11/19 04:00 98.2 109 24 143/78 (99) 98 11/11/19 04:00 24 11/11/19 04:00 Mechanical Ventilator 11/11/19 04:00 98 11/11/19 03:18 110 24 24 11/11/19 00:00 Mechanical Ventilator 11/11/19 00:00 24 11/11/19 00:00 98.4 95 23 98/58 (71) 98 11/11/19 00:00 94 11/10/19 23:58 93 21 24 11/10/19 20:00 24 11/10/19 20:00 98.8 94 20 100/50 (67) 100 11/10/19 20:00 Mechanical Ventilator 11/10/19 19:47 97 11/10/19 19:44 99 22 24 11/10/19 17:15 99.3 11/10/19 16:00 24 11/10/19 16:00 112 11/10/19 16:00 Mechanical Ventilator 11/10/19 15:33 100.2 11/10/19 15:14 102.0 117 20 127/67 (87) 100 11/10/19 15:10 107 23 24 11/10/19 12:00 Mechanical Ventilator 11/10/19 12:00 24 11/10/19 12:00 99.0 118 20 115/69 (84) 100 11/10/19 12:00 119 11/10/19 11:20 119 23 24 Intake and Output 11/10/19 11/11/19 19:00 07:00 Intake Total 750 ml 690 ml Output Total 100 ml 200 ml Balance 650 ml 490 ml Free Water 200 ml 150 ml IV Total 55 ml Tube Feeding 495 ml 540 ml Stool Total 100 ml 200 ml Microbiology Date/Time Source Procedure Growth Status 11/10/19 18:20 Stool Clostridium difficile Toxin Assay - Final Complete 11/09/19 16:15 Blood Blood Culture - Preliminary NO GROWTH AFTER 24 HOURS Resulted 11/09/19 16:00 Blood Blood Culture - Preliminary NO GROWTH AFTER 24 HOURS Resulted 11/09/19 15:30 Sputum Gram Stain - Final Resulted 11/09/19 15:30 Sputum Culture - Preliminary Gram Negative Omar Resulted Laboratory Tests 11/10/19 12:14: POC Whole Blood Glucose 211H 11/10/19 17:06: POC Whole Blood Glucose 240H 11/10/19 23:44: POC Whole Blood Glucose 224H 11/11/19 03:45: Sodium Level 134L, Potassium Level 3.7, Chloride Level 98, Carbon Dioxide Level 20L, Anion Gap 16H, Blood Urea Nitrogen 84H, Creatinine 4.2H, Estimat Glomerular Filtration Rate 13.8, Glucose Level 188H, Calcium Level 10.2H 11/11/19 04:20: White Blood Count 22.2*H, Red Blood Count 4.56L, Hemoglobin 10.6L, Hematocrit 34.1L, Mean Corpuscular Volume 75L, Mean Corpuscular Hemoglobin 23.2L, Mean Corpuscular Hemoglobin Concent 31.0L, Red Cell Distribution Width 18.7H, Platelet Count 599H, Mean Platelet Volume 6.6, Neutrophils (%) (Auto) , Lymphocytes (%) (Auto) , Monocytes (%) (Auto) , Eosinophils (%) (Auto) , Basophils (%) (Auto) , Differential Total Cells Counted 100, Neutrophils % (Manual) 80H, Lymphocytes % (Manual) 13L, Monocytes % (Manual) 5, Eosinophils % (Manual) 0, Basophils % (Manual) 0, Band Neutrophils 2, Platelet Estimate Adequate, Platelet Morphology Normal, Polychromasia 1+, Hypochromasia 2+, Microcytosis 2+ 11/11/19 05:42: POC Whole Blood Glucose 226H Current Medications Medications (Trade) Dose Ordered Sig/Leonel Route PRN Reason Start Time Stop Time Status Last Admin Dose Admin Acetaminophen (Tylenol) 650 mg Q6H PRN GT Temp >100.5 10/21/19 20:45 11/20/19 20:44 11/10/19 15:03 Cefepime HCl 1 gm/ Dextrose 55 ml @ 110 mls/hr Q24H IVPB 11/10/19 13:00 11/17/19 12:59 11/10/19 13:04 Chlorhexidine Gluconate (Felipa-Hex 2%) 1 applic DAILY@2000 TOPIC 09/12/19 20:00 12/11/19 19:59 11/10/19 20:23 Clonidine HCl (Catapres Tab) 0.1 mg Q4H PRN GT For High Blood Pressure 09/09/19 12:30 12/08/19 05:29 09/15/19 04:10 Epoetin Andreas (Epoetin Andreas(ESRD on dialysis)) 8,000 unit WED-WED-WED SUBQ 10/25/19 21:00 01/23/20 20:59 11/10/19 21:40 Famotidine (Pepcid) 20 mg DAILY GT 08/30/19 09:00 11/28/19 08:59 11/11/19 08:49 Heparin Sodium (Porcine) (Heparin 5000 units/ml) 5,000 units EVERY 12 HOURS SUBQ 11/02/19 09:00 12/17/19 08:59 11/11/19 08:50 Heparin Sodium (Porcine) (Heparin Sod 1000 units/ml 10ml) 2,000 unit ONCE PRN IV HD 11/11/19 06:00 11/11/19 23:59 11/11/19 09:06 Heparin Sodium (Porcine) (Heparin) 1,000 unit POSTHD PRN INJ POST HD 11/11/19 06:00 11/11/19 23:59 11/11/19 09:08 Insulin Aspart (NovoLOG) Q6HR SUBQ 11/08/19 00:00 02/06/20 00:00 11/11/19 06:10 Lactobacillus Acidophilus (Culturelle) 1 tab EVERY 12 HOURS GT 10/03/19 21:00 12/13/19 17:59 11/11/19 08:49 Loperamide HCl (Imodium) 2 mg Q6H PRN NG Diarrhea 10/15/19 07:45 11/14/19 07:44 Sodium Chloride 500 ml @ 999 mls/hr Q31M PRN IV sbp<90 10/28/19 21:30 11/27/19 21:29 Sodium Chloride 1,000 ml @ 500 mls/hr Q2H PRN IVLG sbp<90 during hd 11/11/19 06:00 11/11/19 23:59 Vancomycin HCl (Vanco pharmacy to dose) 1 ea DAILY PRN MISC Per rx protocol 11/10/19 11:30 12/10/19 11:29 Assessment/Plan Assessment/Plan Pulmonary Progress Note Assessment/Plan: IMPRESSION: 1. anemia. 2. fevers improved 3. Leukocytosis. 4. hypotension 5. Acute on chronic renal failure. 6. Hyponatremia. 7. Severe protein-calorie malnutrition. 8. Significantly elevated C-reactive protein concerning for infectious etiology. 9. Tracheostomy, G-tube. 10. Ventilator dependence. 11. anasarca 12. Hematuria 13. V pacing 14. hyponatremia 15. transaminitis, HIDA negative PLAN: monitor vitals; cards following and control HR antibiotics per ID chronic care; unable to place care noted on vent/ no wean monitor labs and optimize ID follow up - wbc followup dialysis ongoing- adjust lytes prognosis poor for recovery impression, plan, and exam edited and reviewed in detail care discussed with RN Subjective ROS Limited/Unobtainable: Yes Allergies: Coded Allergies: No Known Allergies (Unverified , 06/10/19) Subjective stable on vent Objective Vital Signs Noted Height (Feet): 5 Height (Inches): 10.00 Weight (Pounds): 155 Objective GENERAL: Ill-appearing male, chronically debilitated. HEENT: Tracheostomy in midline. Questionable fullness in the submandibular region. LUNGS: Coarse breath sounds. reduced breath sounds CARDIAC: S1, S2. Regular rate and rhythm. ABDOMEN: Soft. G-tube. EXTREMITIES: With noted edema. NEUROLOGICAL: Poorly responsive, weak diffusely. Laboratory Tests noted CXR: Stable Kenny Mccurdy MD Nov 11, 2019 10:13
--- NOTE | 2019-11-11 10:36 | Nephrology Progress Note ---
Assessment/Plan Problem List: (1) UTI (urinary tract infection) (2) VRE (vancomycin-resistant Enterococci) infection (3) Hyponatremia (4) CKD (chronic kidney disease) stage 5, GFR less than 15 ml/min (5) Malnutrition (6) Anasarca (7) Decubitus skin ulcer (8) Anemia (9) Ventilator dependent (10) Right lower lobe pneumonia Plan seen on dialysis stable, cont pulm care HD TTS Subjective ROS Limited/Unobtainable: Yes Objective Objective Last 24 Hour Vital Signs Date Time Temp Pulse Resp B/P (MAP) Pulse Ox O2 Delivery O2 Flow Rate FiO2 11/11/19 07:15 111 24 24 11/11/19 04:00 98.2 109 24 143/78 (99) 98 11/11/19 04:00 24 11/11/19 04:00 Mechanical Ventilator 11/11/19 04:00 98 11/11/19 03:18 110 24 24 11/11/19 00:00 Mechanical Ventilator 11/11/19 00:00 24 11/11/19 00:00 98.4 95 23 98/58 (71) 98 11/11/19 00:00 94 11/10/19 23:58 93 21 24 11/10/19 20:00 24 11/10/19 20:00 98.8 94 20 100/50 (67) 100 11/10/19 20:00 Mechanical Ventilator 11/10/19 19:47 97 11/10/19 19:44 99 22 24 11/10/19 17:15 99.3 11/10/19 16:00 24 11/10/19 16:00 112 11/10/19 16:00 Mechanical Ventilator 11/10/19 15:33 100.2 11/10/19 15:14 102.0 117 20 127/67 (87) 100 11/10/19 15:10 107 23 24 11/10/19 12:00 Mechanical Ventilator 11/10/19 12:00 24 11/10/19 12:00 99.0 118 20 115/69 (84) 100 11/10/19 12:00 119 11/10/19 11:20 119 23 24 Intake and Output 11/10/19 11/11/19 19:00 07:00 Intake Total 750 ml 690 ml Output Total 100 ml 200 ml Balance 650 ml 490 ml Free Water 200 ml 150 ml IV Total 55 ml Tube Feeding 495 ml 540 ml Stool Total 100 ml 200 ml Laboratory Tests 11/10/19 12:14: POC Whole Blood Glucose 211H 11/10/19 17:06: POC Whole Blood Glucose 240H 11/10/19 23:44: POC Whole Blood Glucose 224H 11/11/19 03:45: Sodium Level 134L, Potassium Level 3.7, Chloride Level 98, Carbon Dioxide Level 20L, Anion Gap 16H, Blood Urea Nitrogen 84H, Creatinine 4.2H, Estimat Glomerular Filtration Rate 13.8, Glucose Level 188H, Calcium Level 10.2H 11/11/19 04:20: White Blood Count 22.2*H, Red Blood Count 4.56L, Hemoglobin 10.6L, Hematocrit 34.1L, Mean Corpuscular Volume 75L, Mean Corpuscular Hemoglobin 23.2L, Mean Corpuscular Hemoglobin Concent 31.0L, Red Cell Distribution Width 18.7H, Platelet Count 599H, Mean Platelet Volume 6.6, Neutrophils (%) (Auto) , Ly mphocytes (%) (Auto) , Monocytes (%) (Auto) , Eosinophils (%) (Auto) , Basophils (%) (Auto) , Differential Total Cells Counted 100, Neutrophils % (Manual) 80H, Lymphocytes % (Manual) 13L, Monocytes % (Manual) 5, Eosinophils % (Manual) 0, Basophils % (Manual) 0, Band Neutrophils 2, Platelet Estimate Adequate, Platelet Morphology Normal, Polychromasia 1+, Hypochromasia 2+, Microcytosis 2+ 11/11/19 05:42: POC Whole Blood Glucose 226H Height (Feet): 5 Height (Inches): 10.00 Weight (Pounds): 123 General Appearance: lethargic, thin Cardiovascular: regular rhythm Respiratory/Chest: rhonchi - bilaterally Abdomen: non tender Extremities: no edema Neurologic: unresponsive Carmelo Frank MD Nov 11, 2019 10:36
[2019-11-11 12:00] VITALS: BP 128/65
[2019-11-11] MEDS ORDERED: Tubing IV Secondary IV ONE (12:55)
[2019-11-11] MEDS ORDERED: NS 275ml ONE (12:55)
[2019-11-11] MEDS: Cefepime HCl 1 GM in D5W 55 ML IVPB SCH (13:05)
[2019-11-11 16:00] VITALS: BP 117/61
--- NOTE | 2019-11-11 19:02 | NUR ---
RESPIRATORY NOTE: Received pt on AC 12, 550VT, 24%, PEEP +5. Pt is trach-dependent w/ a cuffed, Portex 8 tube. Pt obtunded. B/S ovi. rhonchi, sxn small to moderate amounts of thick/thin, perez-yellow secretions. Vent plugged into red outlet, ambubag at bedside. Pt in no apparent distress at this time. Will continue plan of care.
[2019-11-11 20:00] VITALS: BP 113/56
[2019-11-11] MEDS: Dyna-Hex 2% Top Sol 2oz TOPIC SCH (22:08)
[2019-11-12] VITALS: BP 140/70
[2019-11-12] MEDS: NovoLOG Insulin Flexpen SUBQ SCH ×4 (00:12→17:13)
[2019-11-12 04:00] VITALS: BP 138/69
--- NOTE | 2019-11-12 07:30 | NUR ---
NURSE HAND-OFF REPORT: Important Events on Shift:[BLOOD GLUCOSE LEVEL 246MG/DL,ASYMPTOMATIC , 4 UNIT NOVOLOG SUBCUT, NO ADVERSE REACTION NOTED AFTER 15 MINUTES - ] Patient Status: [STABLE] Diet: [NEPRO 45ML/HR - OFF 0600-RESUME 1000] Pending Orders: [N/A] Pending Results/Labs:[N/A] Pending MD notification:[N/A] Latest Vital Signs: Temperature 98.2 , Pulse 112 , B/P 138 /69 , Respiratory Rate 22 , O2 SAT 100 , Mechanical Ventilator, O2 Flow Rate 15.0 . Vital Sign Comment: [HEART RATE 112B/M] EKG Rhythm: V-Paced Rhythm change?: N MD Notified?: N - MD Response: Latest Delacruz Fall Score: 70 Fall Risk: High Risk Safety Measures: Call light Within Reach, Bed Alarm Zone 1, Side Rails Side Rails x3, Bed position Low and Locked. Fall Precautions: Yellow Socks Door Sign Patient Fall Education Report given to [LAKHWINDER JANE.
--- NOTE | 2019-11-12 07:35 | NUR ---
NURSE NOTES: RECEIVED PATIENT LYING IN BED WITH HOB ELEVATED FOR ASPIRATION PRECAUTION. APPEARED OBTUNDED. G TUBE IS OFF @ THIS TIME PER MD ORDER. RESUME @ 1000H. GTUBE IS INPLACED, INTACT AND NO DRAINAGE. PUPILS ARE SLUGGISH. PERMACATH ON RIGHT SUBCLAVIAN FOR HD ACCESS. POST HD 11/10. DRSG DRY AND INTACT. PIV RH22G PATENT AND INTACT. ALL NEEDS ANTICIPATED AND MET BY NURSING STAFF, NO SIGNS AND SYMPTOMS OF ACUTE CARDIO RESPIRATORY DISTRESS/SHORTNESS OF BREATH. PATIENT IS DEPENDENT. ON TRACH SHILEY #6. ABDOMEN SOFT/NON DISTENDED/AUDIBLE BOWEL SOUNDS, NO REPORT OF N/V/D. DUNCAN CATHETER INTACT/PATENT, DRAINING YELLOW URINE VIA GRAVITY, NO SEDIMENTS NOTED, DRAINAGE BAG BELOW LEVEL OF WAIST. APPLIED OPTIFOAM INTACT TO SACRAL/PROPHYLAXIS, P200 MATTRESS, REPOSITIONED FOR COMFORT/PRESSURE RELIEF. SIDERAILS UP X3, BED IN LOWEST POSITION FOR SAFETY, FREQUENT ROUNDING FOR SAFETY/NEEDS. CONTINUE WITH CURRENT PLAN OF CARE.
[2019-11-12 08:00] VITALS: BP 114/63
[2019-11-12] MEDS: Lactobacillus-GG tablet GT SCH ×2 (08:26→21:45)
[2019-11-12] MEDS: Heparin 5000 units/ml inj SUBQ SCH ×2 (08:27→21:47)
--- NOTE | 2019-11-12 09:29 | General Progress Note ---
Subjective ROS Limited/Unobtainable: No Allergies: Coded Allergies: No Known Allergies (Unverified , 06/10/19) Objective Last 24 Hour Vital Signs Date Time Temp Pulse Resp B/P (MAP) Pulse Ox O2 Delivery O2 Flow Rate FiO2 11/12/19 08:00 97.7 113 20 114/63 (80) 99 11/12/19 06:46 113 22 24 11/12/19 04:00 24 11/12/19 04:00 Mechanical Ventilator 11/12/19 04:00 98.2 112 22 138/69 (92) 100 11/12/19 04:00 114 11/12/19 02:56 114 20 24 11/12/19 00:00 Mechanical Ventilator 11/12/19 00:00 99.3 97 22 140/70 (93) 99 11/12/19 00:00 117 11/11/19 22:43 116 23 24 11/11/19 20:00 Mechanical Ventilator 11/11/19 20:00 117 11/11/19 20:00 99.0 110 18 113/56 (75) 98 11/11/19 20:00 24 11/11/19 19:00 115 23 24 11/11/19 16:00 24 11/11/19 16:00 98.1 108 20 117/61 (79) 98 11/11/19 16:00 109 11/11/19 16:00 Mechanical Ventilator 11/11/19 15:10 109 26 24 11/11/19 12:00 98.6 102 22 128/65 (86) 98 11/11/19 12:00 111 11/11/19 12:00 Mechanical Ventilator 11/11/19 12:00 24 11/11/19 10:50 110 25 24 Intake and Output 11/11/19 11/12/19 19:00 07:00 Intake Total 450 ml 615 ml Output Total 2000 ml 300 ml Balance -1550 ml 315 ml Free Water 120 ml Tube Feeding 450 ml 495 ml Stool Total 300 ml Hemodialysis UF 2000 ml Laboratory Tests 11/11/19 12:54: POC Whole Blood Glucose 107H 11/11/19 18:16: POC Whole Blood Glucose 217H 11/12/19 00:04: POC Whole Blood Glucose 223H 11/12/19 04:15: Random Vancomycin Level 14.8 11/12/19 05:51: POC Whole Blood Glucose [Pending] Height (Feet): 5 Height (Inches): 10.00 Weight (Pounds): 123 General Appearance: no apparent distress EENT: normal ENT inspection Neck: supple Cardiovascular: normal rate Respiratory/Chest: decreased breath sounds Abdomen: normal bowel sounds, non tender, soft Extremities: non-tender Assessment/Plan Assessment/Plan: Assessment - abdominal distention, due to colonic dysmotility, - colonoscopy negative to hepatic flexure - diarrhea - presumed TF related - abnormal LFT - ? etiology --> HIDA negative and CT negative - Anemia - leukocytosis - stool OB (+) - EGD --> gastritis - Renal failure - Anasarca - resp failure, trach - b/l pleural effusions - dysphagia, GT - encephalopathy, contracted - poor px Recommendations - continue TF - check hepatitis markers - negative - rectal tube - roll side to side as feasible (hard due to severe contractions) - Elevate HOB - f/u labs - PPI - supportive care Deon Landry MD Nov 12, 2019 09:29
[2019-11-12 12:00] VITALS: BP 120/58
[2019-11-12] MEDS ORDERED: Vancomycin 750mg/NS 275ml IVPB ONE ×2 (12:00)
[2019-11-12] MEDS: Cefepime HCl 1 GM in D5W 55 ML IVPB SCH (12:33)
--- NOTE | 2019-11-12 14:09 | Hematology/Onc Progress Note ---
Assessment/Plan Assessment/Plan Assessment/recs # Anemia due to chronic disease/kidney disease as well, gi bleed + occult + noted --> was on iron in the past, now on hold --> has been started on Epogen sq --> as per renal care --> egd done and shows gastritis --> on ppi --> egd showed gastritis, colo recently done --> hgb 9-->8. 7-->7.6-->9.2-->8.9-->9.2->9.3-->8.8->9.9-->9.2-->8.1-->8.7-->7.9-->8.6-->8.9--> 8.2->9-->9.3->8.9-->9.5-->10.6->9.2-->10->8.9--> 8.3-->8.9-->9.9-->9.3-->9-->9.3->11-->8.6->8.7>9-->8.4-->9.1-->8.8>10.6 --> spep ordered->wnl # Leukocytosis - with multiple infections, VRE UTI, flow is negative --> wbc trend 33-->28-->25->23->22->23->24->17.3-->17-->14->16-->15.6--> 14-->14->13->19->18->17->22->22->19->17-->18->20-->15-->14->16-->14-->17->18-->1 7->15-->16-->17->28->19-->21-->19-->23->15-->19 --> + blood cultures with coag neg staph likely contaminated --> as per id recs --> has ordered a flow cytometry (with pathology) --> does show increased nK cell activity --> JOURDAN 2 and bcr-abl labs ordered (these are send outs)->negative --> plt 585-->613-->649-->669->663-->529-->506-->620-->720 --> on abx, linezolid and zosyn--> zosyn-->gent-->off-->vanc/zosyn -->cefepime/colistin-->cefepime/vanc # Elevated ddimer on admission --> duplex lower legs neg for dvt # Respiratory failure --> per pulm, s/p trach --> COVID 19 test negative x 2 # Hyperlipidemia --> statin po # Dysphagia s/p gtube with nepro --> per gi # ESRD with r fem julito --> hd as per renal # Dvt ppx heparin sq Appreciate consultation and dw Rn Subjective Constitutional: Denies: no symptoms, chills, fever, malaise, weakness, other HEENT: Denies: no symptoms, eye pain, blurred vision, tearing, double vision, ear pain, ear discharge, nose pain, nose congestion, throat pain, throat swelling, mouth pain, mouth swelling, other Cardiovascular: Denies: no symptoms, chest pain, edema, irregular heart rate, lightheadedness, palpitations, syncope, other Gastrointestinal/Abdominal: Denies: no symptoms, abdomen distended, abdominal pain, black stools, tarry stools, blood in stool, constipated, diarrhea, difficulty swallowing, nausea, poor appetite, poor fluid intake, rectal bleeding, vomiting, other Genitourinary: Denies: no symptoms, burning, discharge, frequency, flank pain, hematuria, incontinence, pain, urgency, other Neurologic/Psychiatric: Denies: no symptoms, anxiety, depressed, emotional problems, headache, numbness, paresthesia, pre-existing deficit, seizure, tingling, tremors, weakness, other Endocrine: Denies: no symptoms, excessive sweating, flushing, intolerance to cold, intolerance to heat, increased hunger, increased thirst, increased urine, unexplained weight gain, unexplained weight loss, other Allergies: Coded Allergies: No Known Allergies (Unverified , 06/10/19) Subjective 7/8 meds noted, no bleeding, hgb 8.8, wbc 28, path flow pending 08/16 flow pending dw pathologist, results pending, wbc 25, hgb 9 08/17 labs reviewed, meds reviewed, meds noted, no night sweats 08/19 remains obtunded, on vent/trach, no bleeding wbc 21.7 08/20 labs have been reviewed, no bleeding, wbc still elev, path reviewed 08/21 labs are noted, no bleeding, on vent, wbc better 08/22 labs noted, no bleeding, meds reviewed, wbc 24 hgb 7.6 08/23 vent, off abx, c diff negative, h/h stable 08/24 labs reviewed, on abx, wbc 17, hgb 8.9, no hemolysis 08/26 reviewed flow and is negative for leukemia, matt rn 08/27 meds reviewed, no night sweats, matt rn, no major bleeding 08/28 meds reivewed, labs noted 08/29 wbc is stable, approx 15, hgb 8.8, no hemolysis 08/30 labs are noted, is for colo today, hgb 9.9 08/31 right fem julito in place, unchanged, hgb 9.2, gi aware 09/01 labs noted, hgb 8.8, plt >600, no bleeding 09/02 labs noted, no bleeding, with elev wbc still, no new changes 09/03 meds are noted, no bleeding, labs reviewed hgb 8.6 09/04 no major events, hd as per renal, abx, no bleeding hgb low 09/05 labs are noted, no bleeding, meds have been reviewed 09/06 no new labs no hemolysis, cbc is noted, no bleeding 09/07 meds reviewed, no bleeding, matt rn, permacath functioning well 09/09 meds reviewed, wbc still elevated, as per id recs, cbc noted 09/10 is obtunded, with gutbe in place, labs reviewed 09/11 obtunded, as per id, observe now off abx, labs noted, wbc 19 09/12 cbc is pending, remains on epogen, also off abx 09/13 labs reviewed, no bleeding, elev wbc, no night sweats 09/14 meds noted, no bleeding, wbc 19, hgb 9.5, no night sweats 09/21 obtunded, remains on vent, labs noted, no bleeding, hgb 8.9 09/22 obtunded, labs noted, no bleeding, on vent, unchanged 09/23 unchanges, wbc remains elevated 20k, on abx, on vent 09/24 labs have been reviewed, no bleeding, wbc 15, may need abx 09/25 formula gtube changed, labs noted, remains obtunded, hgb 9.3 09/26 labs have been reviewed, no bleeding, matt rn, no night sweats 09/27 meds reviewed, no bleeding, wbc 14, on abx, remains obtunded 09/28 remains obtunded, no bleeding, wbc better, hgb 8.9, no hemolysis, plt 506 09/30 on colisitn, wbc elevated, cefepime added per id, hgb stable 10/01 labs reviewed, no bleeding, matt rn, no major events noted, wbc 14, hgb 10.6 10/02 labs have been noted, hgb 9.2, wbc 17, on abx, matt rn 10/03 continue on tube feeds, no bleeding, on vent, wbc remains elevated 10/04 remains ibtunded, is on a mechanical ventilator with tube feeds noted 10/05 labs are noted, hgb 8.6, wbc remains elevated, have ordered for spep 10/07 obtunded on vent, with gtube feeds, labs reviewed, matt rn 10/08 labs are noted, on vent/trach, hgb 10.2, remains obtunded 10/09 labns noted, wbc 15, hgb 8.9, remains altered, on tfs 10/10 labs noted, holding tube feeds, matt rn, hg stable 8. currently 10/11 remains on tfs, supportive care, labs noted, no bleeding 10/12 remains obtunded, hgb 8.9, no hemolysis is seen 10/14 labs reviewed, no bleeding, pending potential hd if rn available 10/15 is on vent, with gtube, labs reviewed, no bleeding, to get hd soon 10/16 remains on vent, matt rn at bedside, wbc 15, abx prn, plt also higher, will mo nitor 10/17 on vent, continue on tube feeds via gtube, labs improved 10/18 labs noted, remains on vent, and tube feeds, no major changes 10/19 nad, no bleeding, labs reviewed, no night sweats, bp elevated, cards aware 10/21 labs pending, with gtube running, on mec vent, abx off 10/22 labs reviewed, no major changes, wbc 18, plt 791k, on gtube feeds 10/23 labs reviewed, meds noted, on epogen and lovenox sq, obtunded, is nv 9.16 labs are noted, wbc 28, hgb 8.6, no hemolysis is noted 10/27 labs reviewed, on mech vent, on gtube feeds, no bleeding wbc 21 10/28 labs noted, wbc 19, plt remains elevated, hd as per renal Dr. Frank 10/29 obtunded, gt feedings on hold, wbc 19, hgb 9, no bleeding 10/30 labs reviewed, no bleeding, wbc 21, hgb 9, hd as per renal care 10/31 labs are noted, wbc 19, hgb 8.4, on vent, obtunded 11/01 obtunded state, no bleeding, meds reviewed, on heparin started today, matt rn 11/02 nv, trach, no bleeding, wbc has increased likely due to infection 11/03 is off abx, no bleeding, meds noted, no hemolysis seen, wbc 15 11/04 meds noted, no bleeding, matt rn 11/06 no residual, labs reviewed, no night sweats, no hemoptysis 11/07 labs are noted, wbc 18, hgb 9, no hemolysis 11/08 is obtunded, stable, nv, getting hd today in am 11/09 labs reviewed, remains obtunded, cbc has been ordered for today 11/11 labs are noted, wbc 22, hgb 10.6, no hemolysis is noted, on epo Objective Objective Current Medications Medications (Trade) Dose Ordered Sig/Leonel Route PRN Reason Start Time Stop Time Status Last Admin Dose Admin Acetaminophen (Tylenol) 650 mg Q6H PRN GT Temp >100.5 10/21/19 20:45 11/20/19 20:44 11/10/19 15:03 Cefepime HCl 1 gm/ Dextrose 55 ml @ 110 mls/hr Q24H IVPB 11/10/19 13:00 11/17/19 12:59 11/12/19 12:33 Chlorhexidine Gluconate (Felipa-Hex 2%) 1 applic DAILY@2000 TOPIC 09/12/19 20:00 12/11/19 19:59 11/11/19 22:08 Clonidine HCl (Catapres Tab) 0.1 mg Q4H PRN GT For High Blood Pressure 09/09/19 12:30 12/08/19 05:29 09/15/19 04:10 Epoetin Andreas (Epoetin Andreas(ESRD on dialysis)) 8,000 unit WED-WED-WED SUBQ 10/25/19 21:00 01/23/20 20:59 11/10/19 21:40 Famotidine (Pepcid) 20 mg DAILY GT 08/30/19 09:00 11/28/19 08:59 11/12/19 08:26 Heparin Sodium (Porcine) (Heparin 5000 units/ml) 5,000 units EVERY 12 HOURS SUBQ 11/02/19 09:00 12/17/19 08:59 11/12/19 08:27 Insulin Aspart (NovoLOG) Q6HR SUBQ 11/08/19 00:00 02/06/20 00:00 11/12/19 11:56 Lactobacillus Acidophilus (Culturelle) 1 tab EVERY 12 HOURS GT 10/03/19 21:00 12/13/19 17:59 11/12/19 08:26 Loperamide HCl (Imodium) 2 mg Q6H PRN NG Diarrhea 10/15/19 07:45 11/14/19 07:44 Sodium Chloride 500 ml @ 999 mls/hr Q31M PRN IV sbp<90 10/28/19 21:30 11/27/19 21:29 Vancomycin HCl (Vanco pharmacy to dose) 1 ea DAILY PRN MISC Per rx protocol 11/10/19 11:30 12/10/19 11:29 Last 24 Hour Vital Signs Date Time Temp Pulse Resp B/P (MAP) Pulse Ox O2 Delivery O2 Flow Rate FiO2 11/12/19 12:00 98.1 103 19 120/58 (78) 99 11/12/19 11:04 103 20 24 11/12/19 08:00 24 11/12/19 08:00 Mechanical Ventilator 11/12/19 08:00 97.7 113 20 114/63 (80) 99 11/12/19 08:00 114 11/12/19 06:46 113 22 24 10/4/20 04:00 24 11/12/19 04:00 Mechanical Ventilator 11/12/19 04:00 98.2 112 22 138/69 (92) 100 11/12/19 04:00 114 11/12/19 02:56 114 20 24 11/12/19 00:00 Mechanical Ventilator 11/12/19 00:00 99.3 97 22 140/70 (93) 99 11/12/19 00:00 117 11/11/19 22:43 116 23 24 11/11/19 20:00 Mechanical Ventilator 11/11/19 20:00 117 11/11/19 20:00 99.0 110 18 113/56 (75) 98 11/11/19 20:00 24 11/11/19 19:00 115 23 24 11/11/19 16:00 24 11/11/19 16:00 98.1 108 20 117/61 (79) 98 11/11/19 16:00 109 11/11/19 16:00 Mechanical Ventilator 11/11/19 15:10 109 26 24 11/11/19 12:00 98.6 102 22 128/65 (86) 98 11/11/19 12:00 111 11/11/19 12:00 Mechanical Ventilator 11/11/19 12:00 24 11/11/19 10:50 110 25 24 11/11/19 08:00 24 11/11/19 08:00 Mechanical Ventilator 11/11/19 08:00 98.2 110 22 131/65 (87) 99 11/11/19 08:00 113 11/11/19 07:15 111 24 24 11/11/19 04:00 98.2 109 24 143/78 (99) 98 11/11/19 04:00 24 11/11/19 04:00 Mechanical Ventilator 11/11/19 04:00 98 11/11/19 03:18 110 24 24 11/11/19 00:00 Mechanical Ventilator 11/11/19 00:00 24 11/11/19 00:00 98.4 95 23 98/58 (71) 98 11/11/19 00:00 94 11/10/19 23:58 93 21 24 11/10/19 20:00 24 11/10/19 20:00 98.8 94 20 100/50 (67) 100 11/10/19 20:00 Mechanical Ventilator 11/10/19 19:47 97 11/10/19 19:44 99 22 24 11/10/19 17:15 99.3 11/10/19 16:00 24 11/10/19 16:00 112 11/10/19 16:00 Mechanical Ventilator 11/10/19 15:33 100.2 11/10/19 15:14 102.0 117 20 127/67 (87) 100 11/10/19 15:10 107 23 24 Intake and Output 11/11/19 11/12/19 19:00 07:00 Intake Total 450 ml 615 ml Output Total 2000 ml 300 ml Balance -1550 ml 315 ml Free Water 120 ml Tube Feeding 450 ml 495 ml Stool Total 300 ml Hemodialysis UF 2000 ml Labs Test 11/09/19 17:41 11/09/19 23:09 11/10/19 05:28 11/10/19 08:20 POC Whole Blood Glucose 196 MG/DL (74-106) 206 MG/DL (74-106) 209 MG/DL (74-106) White Blood Count 21.7 K/UL (4.8-10.8) Red Blood Count 4.02 M/UL (4.70-6.10) Hemoglobin 9.2 G/DL (14.2-18.0) Hematocrit 30.0 % (42.0-52.0) Mean Corpuscular Volume 75 FL (80-99) Mean Corpuscular Hemoglobin 23.0 PG (27.0-31.0) Mean Corpuscular Hemoglobin Concent 30.8 G/DL (32.0-36.0) Red Cell Distribution Width 18.3 % (11.6-14.8) Platelet Count 595 K/UL (150-450) Mean Platelet Volume 6.0 FL (6.5-10.1) Neutrophils (%) (Auto) % (45.0-75.0) Lymphocytes (%) (Auto) % (20.0-45.0) Monocytes (%) (Auto) % (1.0-10.0) Eosinophils (%) (Auto) % (0.0-3.0) Basophils (%) (Auto) % (0.0-2.0) Differential Total Cells Counted 100 Neutrophils % (Manual) 74 % (45-75) Lymphocytes % (Manual) 15 % (20-45) Monocytes % (Manual) 9 % (1-10) Eosinophils % (Manual) 1 % (0-3) Basophils % (Manual) 1 % (0-2) Band Neutrophils 0 % (0-8) Nucleated Red Blood Cells 1 /100 WBC Platelet Estimate Increased Platelet Morphology Normal Hypochromasia 2+ Anisocytosis 2+ Microcytosis 1+ Test 11/10/19 12:14 11/10/19 17:06 11/10/19 23:44 11/11/19 03:45 POC Whole Blood Glucose 211 MG/DL (74-106) 240 MG/DL (74-106) 224 MG/DL (74-106) Sodium Level 134 MMOL/L (136-145) Potassium Level 3.7 MMOL/L (3.5-5.1) Chloride Level 98 MMOL/L (98-107) Carbon Dioxide Level 20 MMOL/L (21-32) Anion Gap 16 mmol/L (5-15) Blood Urea Nitrogen 84 mg/dL (7-18) Creatinine 4.2 MG/DL (0.55-1.30) Estimat Glomerular Filtration Rate 13.8 mL/min (>60) Glucose Level 188 MG/DL (74-106) Calcium Level 10.2 MG/DL (8.5-10.1) Test 11/11/19 04:20 11/11/19 05:42 11/11/19 12:54 11/11/19 18:16 White Blood Count 22.2 K/UL (4.8-10.8) Red Blood Count 4.56 M/UL (4.70-6.10) Hemoglobin 10.6 G/DL (14.2-18.0) Hematocrit 34.1 % (42.0-52.0) Mean Corpuscular Volume 75 FL (80-99) Mean Corpuscular Hemoglobin 23.2 PG (27.0-31.0) Mean Corpuscular Hemoglobin Concent 31.0 G/DL (32.0-36.0) Red Cell Distribution Width 18.7 % (11.6-14.8) Platelet Count 599 K/UL (150-450) Mean Platelet Volume 6.6 FL (6.5-10.1) Neutrophils (%) (Auto) % (45.0-75.0) Lymphocytes (%) (Auto) % (20.0-45.0) Monocytes (%) (Auto) % (1.0-10.0) Eosinophils (%) (Auto) % (0.0-3.0) Basophils (%) (Auto) % (0.0-2.0) Differential Total Cells Counted 100 Neutrophils % (Manual) 80 % (45-75) Lymphocytes % (Manual) 13 % (20-45) Monocytes % (Manual) 5 % (1-10) Eosinophils % (Manual) 0 % (0-3) Basophils % (Manual) 0 % (0-2) Band Neutrophils 2 % (0-8) Platelet Estimate Adequate Platelet Morphology Normal Polychromasia 1+ Hypochromasia 2+ Microcytosis 2+ POC Whole Blood Glucose 226 MG/DL (74-106) 107 MG/DL (74-106) 217 MG/DL (74-106) Test 11/12/19 00:04 11/12/19 04:15 11/12/19 05:51 11/12/19 11:47 POC Whole Blood Glucose 223 MG/DL (74-106) Random Vancomycin Level 14.8 ug/mL Height (Feet): 5 Height (Inches): 10.00 Weight (Pounds): 123 Objective Physical Exam General Appearance: nad, Chronically Ill Head: normocephalic Eyes: right eye PERRL - Will not open left eye ENT: moist mucus membranes Neck: other - submandibular mass R, fairly rigid with resistance to rotation to L, tracheotomy Respiratory: decreased breath sounds, crackles, other - pacemaker, vent+ Cardiovascular: regular rate, rhythm, edema - anasarca Gastrointestinal: non tender, distended, other - G tube Genitourinary: other ++rectal tube Musculoskeletal: other - Contractures all extremities Neurologic: sensory intact, motor weakness, responsive Psychiatric: other Skin: Decubitus/Ulcer - Stage III right elbow, stage III left elbow, stage II sacrum, stage III scrotum, warm/dry Fitz Campos MD Nov 12, 2019 14:09
--- NOTE | 2019-11-12 14:20 | Nephrology Progress Note ---
Assessment/Plan Problem List: (1) UTI (urinary tract infection) (2) VRE (vancomycin-resistant Enterococci) infection (3) Hyponatremia (4) CKD (chronic kidney disease) stage 5, GFR less than 15 ml/min (5) Malnutrition (6) Anasarca (7) Decubitus skin ulcer (8) Anemia (9) Ventilator dependent (10) Right lower lobe pneumonia Plan seen on dialysis 11/10 stable, cont pulm care HD TTS Subjective ROS Limited/Unobtainable: Yes Objective Objective Last 24 Hour Vital Signs Date Time Temp Pulse Resp B/P (MAP) Pulse Ox O2 Delivery O2 Flow Rate FiO2 11/12/19 12:00 98.1 103 19 120/58 (78) 99 11/12/19 11:04 103 20 24 11/12/19 08:00 24 11/12/19 08:00 Mechanical Ventilator 11/12/19 08:00 97.7 113 20 114/63 (80) 99 11/12/19 08:00 114 11/12/19 06:46 113 22 24 11/12/19 04:00 24 11/12/19 04:00 Mechanical Ventilator 11/12/19 04:00 98.2 112 22 138/69 (92) 100 11/12/19 04:00 114 11/12/19 02:56 114 20 24 11/12/19 00:00 Mechanical Ventilator 11/12/19 00:00 99.3 97 22 140/70 (93) 99 11/12/19 00:00 117 11/11/19 22:43 116 23 24 11/11/19 20:00 Mechanical Ventilator 11/11/19 20:00 117 11/11/19 20:00 99.0 110 18 113/56 (75) 98 11/11/19 20:00 24 11/11/19 19:00 115 23 24 11/11/19 16:00 24 11/11/19 16:00 98.1 108 20 117/61 (79) 98 11/11/19 16:00 109 11/11/19 16:00 Mechanical Ventilator 11/11/19 15:10 109 26 24 Intake and Output 11/11/19 11/12/19 19:00 07:00 Intake Total 450 ml 615 ml Output Total 2000 ml 300 ml Balance -1550 ml 315 ml Free Water 120 ml Tube Feeding 450 ml 495 ml Stool Total 300 ml Hemodialysis UF 2000 ml Laboratory Tests 11/11/19 18:16: POC Whole Blood Glucose 217H 11/12/19 00:04: POC Whole Blood Glucose 223H 11/12/19 04:15: Random Vancomycin Level 14.8 11/12/19 05:51: POC Whole Blood Glucose [Pending] 11/12/19 11:47: POC Whole Blood Glucose [Pending] Height (Feet): 5 Height (Inches): 10.00 Weight (Pounds): 123 General Appearance: lethargic, other - trach vent Cardiovascular: regular rhythm Respiratory/Chest: rhonchi - bilaterally Abdomen: soft Extremities: no edema Neurologic: unresponsive Carmelo Frank MD Nov 12, 2019 14:20
--- NOTE | 2019-11-12 15:08 | Infectious Diseases Prog Note ---
Assessment/Plan Assessment/Plan A: 1. Pneumonia with Providencia & Proteus COVID19 X2 : negative 2. ESRD on HD 3. Leukocytosis worsenig 4. Respiratory failure, Ventilator dependent 5. Anemia 6. Elevated transaminase 7. 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 Klebsiella line infection s/p line change 10. Diarrhea, C. difficile negative PLAN: 1. Continue Vancomycin & Rocephin 2. will f/u cultures Subjective ROS Limited/Unobtainable: Yes Constitutional: Denies: fever Allergies: Coded Allergies: No Known Allergies (Unverified , 06/10/19) Objective Last 24 Hour Vital Signs Date Time Temp Pulse Resp B/P (MAP) Pulse Ox O2 Delivery O2 Flow Rate FiO2 11/12/19 12:00 98.1 103 19 120/58 (78) 99 11/12/19 12:00 24 11/12/19 11:04 103 20 24 11/12/19 08:00 24 11/12/19 08:00 Mechanical Ventilator 11/12/19 08:00 97.7 113 20 114/63 (80) 99 11/12/19 08:00 114 11/12/19 06:46 113 22 24 11/12/19 04:00 24 11/12/19 04:00 Mechanical Ventilator 11/12/19 04:00 98.2 112 22 138/69 (92) 100 11/12/19 04:00 114 11/12/19 02:56 114 20 24 11/12/19 00:00 Mechanical Ventilator 11/12/19 00:00 99.3 97 22 140/70 (93) 99 11/12/19 00:00 117 11/11/19 22:43 116 23 24 11/11/19 20:00 Mechanical Ventilator 11/11/19 20:00 117 11/11/19 20:00 99.0 110 18 113/56 (75) 98 11/11/19 20:00 24 11/11/19 19:00 115 23 24 11/11/19 16:00 24 11/11/19 16:00 98.1 108 20 117/61 (79) 98 11/11/19 16:00 109 11/11/19 16:00 Mechanical Ventilator 11/11/19 15:10 109 26 24 Height (Feet): 5 Height (Inches): 10.00 Weight (Pounds): 123 HEENT: status post trach, other - secretions around tracheostomy site Respiratory/Chest: decreased breath sounds, other - on ventilator Cardiovascular: tachycardia Abdomen: soft, non tender, other - GT & rectal tube Extremities: no edema Neurologic/Psychiatric: aphasia Microbiology Date/Time Source Procedure Growth Status 11/10/19 18:20 Stool Clostridium difficile Toxin Assay - Final Complete 11/09/19 16:15 Blood Blood Culture - Preliminary NO GROWTH AFTER 24 HOURS Resulted 11/09/19 16:00 Blood Blood Culture - Preliminary NO GROWTH AFTER 24 HOURS Resulted 11/09/19 15:30 Sputum Gram Stain - Final Resulted 11/09/19 15:30 Sputum Culture - Preliminary Providencia Stuartii Proteus Mirabilis Resulted Laboratory Tests Test 11/11/19 18:16 11/12/19 00:04 11/12/19 04:15 11/12/19 05:51 POC Whole Blood Glucose 217 MG/DL (74-106) H 223 MG/DL (74-106) H Pending Random Vancomycin Level 14.8 ug/mL Test 11/12/19 11:47 POC Whole Blood Glucose Pending Current Medications Medications (Trade) Dose Ordered Sig/Leonel Route PRN Reason Start Time Stop Time Status Last Admin Dose Admin Acetaminophen (Tylenol) 650 mg Q6H PRN GT Temp >100.5 10/21/19 20:45 11/20/19 20:44 11/10/19 15:03 Ceftriaxone Sodium 1 gm/ Sodium Chloride 55 ml @ 110 mls/hr Q24H IVPB 11/12/19 16:00 11/19/19 15:59 Chlorhexidine Gluconate (Felipa-Hex 2%) 1 applic DAILY@2000 TOPIC 09/12/19 20:00 12/11/19 19:59 11/11/19 22:08 Clonidine HCl (Catapres Tab) 0.1 mg Q4H PRN GT For High Blood Pressure 09/09/19 12:30 12/08/19 05:29 09/15/19 04:10 Epoetin Andreas (Epoetin Andreas(ESRD on dialysis)) 8,000 unit MON-WED-WED SUBQ 10/25/19 21:00 01/23/20 20:59 11/10/19 21:40 Famotidine (Pepcid) 20 mg DAILY GT 08/30/19 09:00 11/28/19 08:59 11/12/19 08:26 Heparin Sodium (Porcine) (Heparin 5000 units/ml) 5,000 units EVERY 12 HOURS SUBQ 11/02/19 09:00 12/17/19 08:59 11/12/19 08:27 Insulin Aspart (NovoLOG) Q6HR SUBQ 11/08/19 00:00 02/06/20 00:00 11/12/19 11:56 Lactobacillus Acidophilus (Culturelle) 1 tab EVERY 12 HOURS GT 10/03/19 21:00 12/13/19 17:59 11/12/19 08:26 Loperamide HCl (Imodium) 2 mg Q6H PRN NG Diarrhea 10/15/19 07:45 11/14/19 07:44 Sodium Chloride 500 ml @ 999 mls/hr Q31M PRN IV sbp<90 10/28/19 21:30 11/27/19 21:29 Vancomycin HCl (Vanco pharmacy to dose) 1 ea DAILY PRN MISC Per rx protocol 11/10/19 11:30 12/10/19 11:29 Real De Leon MD Nov 12, 2019 15:08
[2019-11-12 15:53] VITALS: BP 107/64
--- NOTE | 2019-11-12 16:06 | Surgery Progress Note ---
Surgery Progress Note Subjective Procedure Performed Right femoral temporary hemodialysis catheter removal Additional Comments ll appearing no n/v labs noted on support Objective Last 24 Hour Vital Signs Date Time Temp Pulse Resp B/P (MAP) Pulse Ox O2 Delivery O2 Flow Rate FiO2 11/12/19 15:53 97.9 98 21 107/64 (78) 100 11/12/19 15:30 97 18 24 11/12/19 12:00 98.1 103 19 120/58 (78) 99 11/12/19 12:00 102 11/12/19 12:00 Mechanical Ventilator 11/12/19 12:00 24 11/12/19 11:04 103 20 24 11/12/19 08:00 24 11/12/19 08:00 Mechanical Ventilator 11/12/19 08:00 97.7 113 20 114/63 (80) 99 11/12/19 08:00 114 11/12/19 06:46 113 22 24 11/12/19 04:00 24 11/12/19 04:00 Mechanical Ventilator 11/12/19 04:00 98.2 112 22 138/69 (92) 100 11/12/19 04:00 114 11/12/19 02:56 114 20 24 11/12/19 00:00 Mechanical Ventilator 11/12/19 00:00 99.3 97 22 140/70 (93) 99 11/12/19 00:00 117 11/11/19 22:43 116 23 24 11/11/19 20:00 Mechanical Ventilator 11/11/19 20:00 117 11/11/19 20:00 99.0 110 18 113/56 (75) 98 11/11/19 20:00 24 11/11/19 19:00 115 23 24 I&O Intake and Output 11/11/19 11/12/19 19:00 07:00 Intake Total 450 ml 615 ml Output Total 2000 ml 300 ml Balance -1550 ml 315 ml Free Water 120 ml Tube Feeding 450 ml 495 ml Stool Total 300 ml Hemodialysis UF 2000 ml Dressing: other Wound: other Cardiovascular: RSR Respiratory: decreased breath sounds Abdomen: soft, non-tender, present bowel sounds Extremities: no tenderness, no cyanosis Laboratory Tests Test 11/11/19 18:16 11/12/19 00:04 11/12/19 04:15 11/12/19 05:51 POC Whole Blood Glucose 217 MG/DL (74-106) H 223 MG/DL (74-106) H Pending Random Vancomycin Level 14.8 ug/mL Test 11/12/19 11:47 POC Whole Blood Glucose Pending Plan Problems: (1) Anemia (2) Hyponatremia (3) Leukocytosis Assessment & Plan: Tracheostomy, left chest pacemaker are again demonstrated. There is bilateral interstitial and airspace disease and bilateral pleural fluid again demonstrated. This appears more severe than on the prior study. Bilateral interstitial and airspace infiltrates versus edema. Bilateral pleural effusions Leukocytosis, anemia, tachycardia, abnormal labs. Wound evaluated and likely etiology of patient's sepsis. Leukocytosis etiology work-up antibiotics per infectious disease Appreciate nephrology input transfuse with dialysis We will follow with recommendations thank you allowing participation's care plan HD access temp HD discussed with medical teams line okay HD as per renal persistent leukocytosis flow cyto noted improving trending down right fem line removed wbc fluctuating h/h stable lft's elevated There is a right pleural effusion Gallbladder demonstrates tiny wall adherent nonmobile echogenic foci, some possible mural calcifications, and comet tail artifact in the anterior wall. Patient unable to report sonographic Kent's sign. Common bile duct measures 4 mm in diameter. No intrahepatic biliary ductal dilatation. Liver demonstrates normal echogenicity, no focal abnormality. There is some surface nodularity. Portal vein and hepatic veins are patent. Pancreas is incompletely visualized due to overlying bowel gas, visualized portions are unremarkable. Spleen is unremarkable. Left kidney measures 8.7 cm in length. Right kidney measures 8.9 cm length. Both kidneys demonstrate increased echogenicity. There is no hydronephrosis. No focal abnormality . Abdominal aorta is partially obscured by bowel gas, visualized portions are non-aneurysmal . A gastrostomy is noted Impression: Tiny wall adherent nonmobile gallbladder echogenic foci, may reflect wall adherent calculi, small polyps, and/or pleural calcifications. Anterior wall comet tail artifact suggests foci of adenomyomatosis. Normal caliber common bile duct Possible hepatic surface nodularity, could indicate cirrhotic change Echogenic kidneys, consistent with medical renal disease. No hydronephrosis Right pleural effusion Gastrostomy Note nonvisualization of portions of the pancreas and abdominal aorta HIDA NEGATIVE trend labs (4) Ventilator dependent (5) Right lower lobe pneumonia (6) Hypokalemia (7) Hyperkalemia (8) Anasarca (9) Decubitus skin ulcer Assessment & Plan: pt presented on admission with generalized edemae.Skin a ssessed under tracheostomy and no areas of concerns noted. GT Insertion is marginally erythematous with small amt slough at stoma. Unstageable Pressure Injury R elbow. Base of wound is 100% yellow slough,Borders are erythematous. Wound oozing small amt haemopurulent exudate.Darker skin tone without elevation in skin temp or erythema periwound. Pt's penis and scrotum are grossly edematous and enlarged and weeping serous exudate from numerous sites both from penis and scrotum. Two small open wounds noted at base of at base of shaft of penis ,and contreras aspect of scrotum. Both wounds oozing large amt sanguineous and serosanguineous exudate. Multiple open wounds with Biofilm at base of each wounds noted to contreras/lateral,inferior and posterior aspects of scrotum. These wounds noted to be oozing moderate amts of serosanguineous exudate. Hypertrophic scar with scattered areas of hyperpigm entation noted to Sacrum. DTPI noted to L Buttocks (L)7cm x (W)9cm. Base of wound is purple and indurated.Darker skin tone without erythema,induration or fluctuance R and L ischial tuberosities. Both heels are boggy with non-blanchable erythema. potential decline given chronic illness Tx.Plan: Cleanse wound R elbow with Saline. Apply TheraHoney, Apply Moisture Barrier Paste periwound. Cover with Optifoam drsg.Change Daily and prn. Wash GT site with soap and water.Pat dry. Apply Zinc Oxide Paste to GT site Daily. Leave Open to Air. Apply Zinc Oxide Paste to entire Scrotum, Place ABD pads to R and L lateral, and posterior aspects of scrotum TWICE daily. Apply Cavilon Skin Barrier to malleoli and both Heels. Cover each site with Optifoam drsgs. Change every 7 days and prn. Reposition at least every 2hours or as tolerated. Off-load heels with Pillows. APM/BECCA Mattress overlay. (10) Malnutrition Assessment & Plan: DAILY ESTIMATED NEEDS: Needs based on Renal, critical care, wound/ 61kg 22-30 kcals/kg 4231-6295 total kcals 1.25-2 g protein/kg 76-122 g total protein Fluid per MD, now on HD NUTRITION DIAGNOSIS: * Swallowing difficulty R/T respiratory failure, dysphagia as evidenced by trach/vent dep, PEG dep * Increased kcal/prot needs R/T wound healing as evidenced by admitted w/ multiple pressure injuries including full thickness wounds at junction of Shaft of penis, dorsal scrotum, R elbow, and DTPI @ L buttocks. CURRENT TF:Osmolite 1.2 @ 60ml/hr x 20 hrs + Garo BID ENTERAL NUTRITION RECOMMENDATIONS: Vital AF 1.2 @ 60ml/hr x 20 hrs to provide 1200ml, 1440kcal, 90g prot, 973ml free water * Rec 20 hr run time for GI rest. -> W/ improved GI status, rec Vital AF 1.2, an elemental and carb controlled TF -> monitor lytes and renal fxn closely, monitor need for renal TF -> TF @ goal will provide 1642mg K and 2025mg Phos -> HOB over 30 degrees/ water flush per MD -------- Trial of Osmolite 1.2 continue for now- Goal of 60ml/hr for 20 hrs (4 hrs bowel rest) to provide 1200ml, 1440 kcal, 67g pro, 984ml free H2O, -> Rec to add prosource 1 pack daily (11g pro) to better meet est pro needs. -> Monitor BG, K closely. Pt would require increased insulin coverage as TF at goal would provide 56g more carbs per day. ADDITIONAL RECOMMENDATIONS: * Per SNF: HT=63" RF=988 lbs (vs EMR wt of 166lbs) -> obtain re-calibrated bedscale wt, rec daily wt monitoring * Wound healing: con't Nephrovite + Garo BID/ Vit C dosing per Nephro * Monitor renal fxn and lytes closely w/ non-renal TF ->K low, phos wnl;updated mag level; rec increased insulin w/ BG labs * Daily wts w/ drop to 118-20 lbs, rec to recalibrate for accurate CBW * Consider DC Miralax if medically appropriate: +rectal tube (11) Uremia (12) CKD (chronic kidney disease) stage 5, GFR less than 15 ml/min (13) Colon distention Assessment & Plan: discussed with GI likely functional as having lots of loose bm rectal tube kub f/u s/p colonoscopy - findings reviewed with GI improved cont diet as tolerated repeat KUB Marked distention of the sigmoid colon. 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 No evidence of bowel wall thickening or pneumatosis 12 mm focus of contrast enhancement in the right pectineus muscle. While nonspecific in appearance, appearance raises concern for a possible pseudoaneurysm. Ill- defined thickening of the pectus medius muscle could indicate some intramuscular hemorrhage. The above findings were phoned to Dr. Urias at the time of interpretation Large bilateral pleural effusions Hazy pulmonary parenchymal opacities as well as dense consolidative opacities most likely represent pulmonary edema, but could represent pneumonia Evidence of anasarca elsewhere, with generalized edema of the subcutaneous fat Bladder wall thickening, raises concern for cystitis. Avalos catheter in place Colonic diverticulosis. No evidence of diverticulitis. Tracheostomy Pacemaker Gastrostomy Gastrostomy again demonstrated in satisfactory position. The stomach is otherwise unremarkable. The distal esophagus and duodenum are unremarkable. Ingested contrast reaches the colon. No small bowel distention or small bowel wall thickening. Interim placement of a rectal tube. There are a few colonic diverticula. No definite evidence of acute diverticulitis. The appendix is prominent in caliber, as previously No free or loculated intraperitoneal gas or fluid is evident. Again demonstrated is marked gaseous distention of the sigmoid colon which measures up to 12.6 cm in diameter, with the proximal aspect located laterally to the distal aspect, and caliber transition in the mesenteric root of both entry points. However, there is stool within the proximal portion which appears to be at least partially contrast opacified, and no definite persisting of the vascular pedicle demonstrated. The liver, gallbladder, bile ducts, pancreas, spleen, adrenals, kidneys are unremarkable. There are accessory splenules demonstrated. No retroperitoneal or mesenteric mass or adenopathy. No pelvic mass or adenopathy. The prostate is enlarged and protrudes into the inferior bladder. The bladder is thick-walled. Previously demonstrated Avalos catheter has been removed. Again demonstrated is a large right pleural effusion and a moderate to large left pleural effusion. Again demonstrated are compressive atelectatic changes of significant portions of both lower lobes. Pacemaker wires are seen within the heart. Previously demonstrated high attenuation focus within the right pectineus muscle is not evident. However, there is a low-attenuation area which measures 2 cm diameter centrally which is not evident previously. There is diffuse edema of the subcutaneous fat. This is less severe than was demonstrated previously. There are degenerative proliferative changes of the lumbar spine. Impression: Abnormal configuration of the sigmoid colon, with marked distention of a sigmoid, inversion of the relationships of the proximal and descending colon, and evidence of immediately apposed transition point raises concern for sigmoid volvulus. However, similarity to the prior exam, presence of what appears to be contrast opacified stool within the dilated segment, and lack of evidence of twisting of the vascular pedicle raises the possibility that this is baseline for this patient or possibly dysfunctional in nature. Correlate with clinical findings Enlarged prostate with protrusion into the bladder floor. Bladder neoplasm not completely excludable as a result Thick-walled bladder, may indicate cystitis or be due to chronic bladder lumen obstruction related to the above Abnormalities right pectineus muscle, with a 2 cm central low attenuation area. Note that previous exam have a high attenuation focus suspicious for a small pseudoaneurysm. 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 Colonic diverticulosis. No evidence of diverticulitis Gastrostomy in good position Rectal tube in good position Large right and moderate to large left pleural effusions. Resultant compressive pulmonary atelectatic changes or graft edema subcutaneous fat, less severe than was demonstrated on prior 08/17/2019 exam. Jonathan Urias Nov 12, 2019 16:06
[2019-11-12] MEDS: cefTRIAXone 1 GM in NS 55 ML IVPB SCH (16:20)
--- NOTE | 2019-11-12 16:51 | Pulmonology Progress Note ---
Subjective ROS Limited/Unobtainable: Yes Constitutional: Denies: fever Gastrointestinal/Abdominal: Reports: diarrhea Allergies: Coded Allergies: No Known Allergies (Unverified , 06/10/19) All Systems: reviewed and negative except above Objective Last 24 Hour Vital Signs Date Time Temp Pulse Resp B/P (MAP) Pulse Ox O2 Delivery O2 Flow Rate FiO2 11/12/19 16:00 24 11/12/19 15:53 97.9 98 21 107/64 (78) 100 11/12/19 15:30 97 18 24 11/12/19 12:00 98.1 103 19 120/58 (78) 99 11/12/19 12:00 102 11/12/19 12:00 Mechanical Ventilator 11/12/19 12:00 24 11/12/19 11:04 103 20 24 11/12/19 08:00 24 11/12/19 08:00 Mechanical Ventilator 11/12/19 08:00 97.7 113 20 114/63 (80) 99 11/12/19 08:00 114 11/12/19 06:46 113 22 24 11/12/19 04:00 24 11/12/19 04:00 Mechanical Ventilator 11/12/19 04:00 98.2 112 22 138/69 (92) 100 11/12/19 04:00 114 11/12/19 02:56 114 20 24 11/12/19 00:00 Mechanical Ventilator 11/12/19 00:00 99.3 97 22 140/70 (93) 99 11/12/19 00:00 117 11/11/19 22:43 116 23 24 11/11/19 20:00 Mechanical Ventilator 11/11/19 20:00 117 11/11/19 20:00 99.0 110 18 113/56 (75) 98 11/11/19 20:00 24 11/11/19 19:00 115 23 24 Intake and Output 11/11/19 11/12/19 19:00 07:00 Intake Total 450 ml 615 ml Output Total 2000 ml 300 ml Balance -1550 ml 315 ml Free Water 120 ml Tube Feeding 450 ml 495 ml Stool Total 300 ml Hemodialysis UF 2000 ml Microbiology Date/Time Source Procedure Growth Status 11/10/19 18:20 Stool Clostridium difficile Toxin Assay - Final Complete Laboratory Tests 11/11/19 18:16: POC Whole Blood Glucose 217H 11/12/19 00:04: POC Whole Blood Glucose 223H 11/12/19 04:15: Random Vancomycin Level 14.8 11/12/19 05:51: POC Whole Blood Glucose [Pending] 11/12/19 11:47: POC Whole Blood Glucose [Pending] Current Medications Medications (Trade) Dose Ordered Sig/Leonel Route PRN Reason Start Time Stop Time Status Last Admin Dose Admin Acetaminophen (Tylenol) 650 mg Q6H PRN GT Temp >100.5 10/21/19 20:45 11/20/19 20:44 11/10/19 15:03 Ceftriaxone Sodium 1 gm/ Sodium Chloride 55 ml @ 110 mls/hr Q24H IVPB 11/12/19 16:00 11/19/19 15:59 11/12/19 16:20 Chlorhexidine Gluconate (Felipa-Hex 2%) 1 applic DAILY@1999 TOPIC 09/12/19 20:00 12/11/19 19:59 11/11/19 22:08 Clonidine HCl (Catapres Tab) 0.1 mg Q4H PRN GT For High Blood Pressure 09/09/19 12:30 12/08/19 05:29 09/15/19 04:10 Epoetin Andreas (Epoetin Andreas(ESRD on dialysis)) 8,000 unit WED-WED-WED SUBQ 10/25/19 21:00 01/23/20 20:59 11/10/19 21:40 Famotidine (Pepcid) 20 mg DAILY GT 08/30/19 09:00 11/28/19 08:59 11/12/19 08:26 Heparin Sodium (Porcine) (Heparin 5000 units/ml) 5,000 units EVERY 12 HOURS SUBQ 11/02/19 09:00 12/17/19 08:59 11/12/19 08:27 Insulin Aspart (NovoLOG) Q6HR SUBQ 11/08/19 00:00 02/06/20 00:00 11/12/19 11:56 Lactobacillus Acidophilus (Culturelle) 1 tab EVERY 12 HOURS GT 10/03/19 21:00 12/13/19 17:59 11/12/19 08:26 Loperamide HCl (Imodium) 2 mg Q6H PRN NG Diarrhea 10/15/19 07:45 11/14/19 07:44 Sodium Chloride 500 ml @ 999 mls/hr Q31M PRN IV sbp<90 10/28/19 21:30 11/27/19 21:29 Vancomycin HCl (Vanco pharmacy to dose) 1 ea DAILY PRN MISC Per rx protocol 11/10/19 11:30 12/10/19 11:29 Assessment/Plan Assessment/Plan Pulmonary Progress Note Assessment/Plan: IMPRESSION: 1. anemia. 2. fevers improved 3. Leukocytosis. 4. hypotension 5. Acute on chronic renal failure. 6. Hyponatremia. 7. Severe protein-calorie malnutrition. 8. Significantly elevated C-reactive protein concerning for infectious etiology. 9. Tracheostomy, G-tube. 10. Ventilator dependence. 11. anasarca 12. Hematuria 13. V pacing 14. hyponatremia 15. transaminitis, HIDA negative PLAN: monitor vitals; cards following and control HR antibiotics per ID chronic care; unable to place care noted on vent/ no wean monitor labs and optimize ID follow up - wbc followup dialysis ongoing- adjust lytes prognosis poor for recovery impression, plan, and exam edited and reviewed in detail care discussed with RN Subjective ROS Limited/Unobtainable: Yes Allergies: Coded Allergies: No Known Allergies (Unverified , 06/10/19) Subjective stable on vent Objective Vital Signs Noted Height (Feet): 5 Height (Inches): 10.00 Weight (Pounds): 155 Objective GENERAL: Ill-appearing male, chronically debilitated. HEENT: Tracheostomy in midline. Questionable fullness in the submandibular region. LUNGS: Coarse breath sounds. reduced breath sounds CARDIAC: S1, S2. Regular rate and rhythm. ABDOMEN: Soft. G-tube. EXTREMITIES: With noted edema. NEUROLOGICAL: Poorly responsive, weak diffusely. Laboratory Tests noted CXR: Stable Kenny Mccurdy MD Nov 12, 2019 16:51
--- NOTE | 2019-11-12 17:17 | NUR ---
NURSE NOTES: GTUBE DRSG CHANGED. NO LEAKAGE OR DRAINAGE INDICATED. WILL CONT TO MONITOR
--- NOTE | 2019-11-12 19:11 | NUR ---
RESPIRATORY NOTE: Received pt on AC 12, 550VT, 24%, PEEP +5. Pt is trach-dependent w/ a cuffed, Portex 8 tube. Pt obtunded. B/S ovi. rhonchi, sxn small to moderate amounts of thick, perez-yellow secretions. Vent plugged into red outlet, ambubag at bedside. Pt in no apparent distress at this time. Will continue plan of care.
--- NOTE | 2019-11-12 19:17 | NUR ---
NURSE HAND-OFF REPORT: Important Events on Shift:[MONITOR VENTILATOR, GTUBE TOLERANCE. SKIN ASSESSED] Patient Status: [NO SIGNIFICANT CHANGE] Diet: [NEPRO @ 45CC/HR OFF 0630H ON 1000H] Pending Orders: [LABS] Pending Results/Labs:[IN AM] Pending MD notification:[] Latest Vital Signs: Temperature 97.9 , Pulse 94 , B/P 107 /64 , Respiratory Rate 18 , O2 SAT 100 , Mechanical Ventilator, O2 Flow Rate 15.0 . Vital Sign Comment: [] EKG Rhythm: V-Paced Rhythm change?: N MD Notified?: N - MD Response: Latest Delacruz Fall Score: 70 Fall Risk: High Risk Safety Measures: Call light Within Reach, Bed Alarm Zone 2, Side Rails Side Rails x3, Bed position Low and Locked. Fall Precautions: Yellow Socks Door Sign Patient Fall Education Report given to [HUE].
--- NOTE | 2019-11-12 19:50 | NUR ---
NURSE NOTES: Received pt from Charge Nurse , RN. Pt asleep but opens eyes to touch. GTF running, IV site intact and patent. Bed in lowest position, on p200 mattress. Bed alarm on. Call light within reach. Will continue to monitor.
[2019-11-12 20:00] VITALS: BP 153/74
[2019-11-12] MEDS: Dyna-Hex 2% Top Sol 2oz TOPIC SCH (21:45)
[2019-11-13] VITALS: BP 121/67
[2019-11-13] MEDS: NovoLOG Insulin Flexpen SUBQ SCH ×4 (00:43→17:30)
[2019-11-13 04:00] VITALS: BP 142/75
--- NOTE | 2019-11-13 06:51 | Hematology/Onc Progress Note ---
Assessment/Plan Assessment/Plan Assessment/recs # Anemia due to chronic disease/kidney disease as well, gi bleed + occult + noted --> was on iron in the past, now on hold --> has been started on Epogen sq --> as per renal care --> egd done and shows gastritis --> on ppi --> egd showed gastritis, colo recently done --> hgb 9-->8. 7-->7.6-->9.2-->8.9-->9.2->9.3-->8.8->9.9-->9.2-->8.1-->8.7-->7.9-->8.6-->8.9--> 8.2->9-->9.3->8.9-->9.5-->10.6->9.2-->10->8.9--> 8.3-->8.9-->9.9-->9.3-->9-->9.3->11-->8.6->8.7>9-->8.4-->9.1-->8.8>10.6 --> spep ordered->wnl # Leukocytosis - with multiple infections, VRE UTI, flow is negative --> wbc trend 33-->28-->25->23->22->23->24->17.3-->17-->14->16-->15.6--> 14-->14->13->19->18->17->22->22->19->17-->18->20-->15-->14->16-->14-->17->18-->1 7->15-->16-->17->28->19-->21-->19-->23->15-->19 --> + blood cultures with coag neg staph likely contaminated --> as per id recs --> has ordered a flow cytometry (with pathology) --> does show increased nK cell activity --> JOURDAN 2 and bcr-abl labs ordered (these are send outs)->negative --> plt 585-->613-->649-->669->663-->529-->506-->620-->720 --> on abx, linezolid and zosyn--> zosyn-->gent-->off-->vanc/zosyn -->cefepime/colistin-->cefepime/vanc # Elevated ddimer on admission --> duplex lower legs neg for dvt # Respiratory failure --> per pulm, s/p trach --> COVID 19 test negative x 2 # Hyperlipidemia --> statin po # Dysphagia s/p gtube with nepro --> per gi # ESRD with r fem julito --> hd as per renal # Dvt ppx heparin sq Appreciate consultation and matt Rn Subjective Allergies: Coded Allergies: No Known Allergies (Unverified , 06/10/19) All Systems: reviewed and negative except above Subjective 08/15 meds noted, no bleeding, hgb 8.8, wbc 28, path flow pending 08/16 flow pending dw pathologist, results pending, wbc 25, hgb 9 08/17 labs reviewed, meds reviewed, meds noted, no night sweats 08/19 remains obtunded, on vent/trach, no bleeding wbc 21.7 08/20 labs have been reviewed, no bleeding, wbc still elev, path reviewed 08/21 labs are noted, no bleeding, on vent, wbc better 08/22 labs noted, no bleeding, meds reviewed, wbc 24 hgb 7.6 08/23 vent, off abx, c diff negative, h/h stable 08/24 labs reviewed, on abx, wbc 17, hgb 8.9, no hemolysis 08/26 reviewed flow and is negative for leukemia, matt rn 08/27 meds reviewed, no night sweats, matt rn, no major bleeding 08/28 meds reivewed, labs noted 08/29 wbc is stable, approx 15, hgb 8.8, no hemolysis 08/30 labs are noted, is for colo today, hgb 9.9 08/31 right fem julito in place, unchanged, hgb 9.2, gi aware 09/01 labs noted, hgb 8.8, plt >600, no bleeding 09/02 labs noted, no bleeding, with elev wbc still, no new changes 09/03 meds are noted, no bleeding, labs reviewed hgb 8.6 09/04 no major events, hd as per renal, abx, no bleeding hgb low 09/05 labs are noted, no bleeding, meds have been reviewed 09/06 no new labs no hemolysis, cbc is noted, no bleeding 09/07 meds reviewed, no bleeding, matt rn, permacath functioning well 09/09 meds reviewed, wbc still elevated, as per id recs, cbc noted 09/10 is obtunded, with gutbe in place, labs reviewed 09/11 obtunded, as per id, observe now off abx, labs noted, wbc 19 09/12 cbc is pending, remains on epogen, also off abx 09/13 labs reviewed, no bleeding, elev wbc, no night sweats 09/14 meds noted, no bleeding, wbc 19, hgb 9.5, no night sweats 09/21 obtunded, remains on vent, labs noted, no bleeding, hgb 8.9 09/22 obtunded, labs noted, no bleeding, on vent, unchanged 09/23 unchanges, wbc remains elevated 20k, on abx, on vent 09/24 labs have been reviewed, no bleeding, wbc 15, may need abx 09/25 formula gtube changed, labs noted, remains obtunded, hgb 9.3 09/26 labs have been reviewed, no bleeding, matt rn, no night sweats 09/27 meds reviewed, no bleeding, wbc 14, on abx, remains obtunded 09/28 remains obtunded, no bleeding, wbc better, hgb 8.9, no hemolysis, plt 506 09/30 on colisitn, wbc elevated, cefepime added per id, hgb stable 10/01 labs reviewed, no bleeding, matt wright, no major events noted, wbc 14, hgb 10.6 10/02 labs have been noted, hgb 9.2, wbc 17, on abx, matt wright 10/03 continue on tube feeds, no bleeding, on vent, wbc remains elevated 10/04 remains ibtunded, is on a mechanical ventilator with tube feeds noted 10/05 labs are noted, hgb 8.6, wbc remains elevated, have ordered for spep 10/07 obtunded on vent, with gtube feeds, labs reviewed, matt rn 10/08 labs are noted, on vent/trach, hgb 10.2, remains obtunded 10/09 labns noted, wbc 15, hgb 8.9, remains altered, on tfs 10/10 labs noted, holding tube feeds, matt rn, hg stable 8.3 currently 10/11 remains on tfs, supportive care, labs noted, no bleeding 10/12 remains obtunded, hgb 8.9, no hemolysis is seen 10/14 labs reviewed, no bleeding, pending potential hd if rn available 10/15 is on vent, with gtube, labs reviewed, no bleeding, to get hd soon 10/16 remains on vent, matt rn at bedside, wbc 15, abx prn, plt also higher, will monitor 10/17 on vent, continue on tube feeds via gtube, labs improved 10/18 labs noted, remains on vent, and tube feeds, no major changes 10/19 nad, no bleeding, labs reviewed, no night sweats, bp elevated, cards aware 10/21 labs pending, with gtube running, on mec vent, abx off 10/22 labs reviewed, no major changes, wbc 18, plt 791k, on gtube feeds 10/23 labs reviewed, meds noted, on epogen and lovenox sq, obtunded, is nv 9.16 labs are noted, wbc 28, hgb 8.6, no hemolysis is noted 10/27 labs reviewed, on mech vent, on gtube feeds, no bleeding wbc 21 10/28 labs noted, wbc 19, plt remains elevated, hd as per renal Dr. Frank 10/29 obtunded, gt feedings on hold, wbc 19, hgb 9, no bleeding 10/30 labs reviewed, no bleeding, wbc 21, hgb 9, hd as per renal care 10/31 labs are noted, wbc 19, hgb 8.4, on vent, obtunded 11/01 obtunded state, no bleeding, meds reviewed, on heparin started today, matt wright 11/02 nv, trach, no bleeding, wbc has increased likely due to infection 11/03 is off abx, no bleeding, meds noted, no hemolysis seen, wbc 15 11/04 meds noted, no bleeding, dw rn 11/06 no residual, labs reviewed, no night sweats, no hemoptysis 11/07 labs are noted, wbc 18, hgb 9, no hemolysis 11/08 is obtunded, stable, nv, getting hd today in am 11/09 labs reviewed, remains obtunded, cbc has been ordered for today 11/11 labs are noted, wbc 22, hgb 10.6, no hemolysis is noted, on epo 11/12 sleeping, with gtf and vent overnight tolerating well, no issues Objective Objective Current Medications Medications (Trade) Dose Ordered Sig/Leonel Route PRN Reason Start Time Stop Time Status Last Admin Dose Admin Acetaminophen (Tylenol) 650 mg Q6H PRN GT Temp >100.5 10/21/19 20:45 11/20/19 20:44 11/10/19 15:03 Ceftriaxone Sodium 1 gm/ Sodium Chloride 55 ml @ 110 mls/hr Q24H IVPB 11/12/19 16:00 11/19/19 15:59 11/12/19 16:20 Chlorhexidine Gluconate (Felipa-Hex 2%) 1 applic DAILY@2000 TOPIC 09/12/19 20:00 12/11/19 19:59 11/12/19 21:45 Clonidine HCl (Catapres Tab) 0.1 mg Q4H PRN GT For High Blood Pressure 09/09/19 12:30 12/08/19 05:29 09/15/19 04:10 Epoetin Andreas (Epoetin Andreas(ESRD on dialysis)) 8,000 unit WED-WED-WED SUBQ 10/25/19 21:00 01/23/20 20:59 11/10/19 21:40 Famotidine (Pepcid) 20 mg DAILY GT 08/30/19 09:00 11/28/19 08:59 11/12/19 08:26 Heparin Sodium (Porcine) (Heparin 5000 units/ml) 5,000 units EVERY 12 HOURS SUBQ 11/02/19 09:00 12/17/19 08:59 11/12/19 21:47 Insulin Aspart (NovoLOG) Q6HR SUBQ 11/08/19 00:00 02/06/20 00:00 11/13/19 05:31 Lactobacillus Acidophilus (Culturelle) 1 tab EVERY 12 HOURS GT 10/03/19 21:00 12/13/19 17:59 11/12/19 21:45 Loperamide HCl (Imodium) 2 mg Q6H PRN NG Diarrhea 10/15/19 07:45 11/14/19 07:44 Sodium Chloride 500 ml @ 999 mls/hr Q31M PRN IV sbp<90 10/28/19 21:30 11/27/19 21:29 Vancomycin HCl ([facility] pharmacy to dose) 1 ea DAILY PRN MISC Per rx protocol 11/10/19 11:30 12/10/19 11:29 Last 24 Hour Vital Signs Date Time Temp Pulse Resp B/P (MAP) Pulse Ox O2 Delivery O2 Flow Rate FiO2 11/13/19 04:00 24 11/13/19 04:00 Mechanical Ventilator 11/13/19 04:00 98.1 100 18 142/75 (97) 92 11/13/19 04:00 93 11/13/19 03:03 78 19 24 11/13/19 00:00 98.1 95 18 121/67 (85) 95 11/13/19 00:00 Mechanical Ventilator 11/13/19 00:00 24 11/13/19 00:00 93 11/12/19 23:17 93 18 24 11/12/19 20:00 98.1 95 18 153/74 (100) 99 11/12/19 20:00 Mechanical Ventilator 11/12/19 20:00 24 11/12/19 20:00 94 11/12/19 19:08 94 18 24 11/12/19 16:00 Mechanical Ventilator 11/12/19 16:00 24 11/12/19 16:00 94 11/12/19 15:53 97.9 98 21 107/64 (78) 100 11/12/19 15:30 97 18 24 11/12/19 12:00 98.1 103 19 120/58 (78) 99 11/12/19 12:00 102 11/12/19 12:00 Mechanical Ventilator 11/12/19 12:00 24 11/12/19 11:04 103 20 24 11/12/19 08:00 24 11/12/19 08:00 Mechanical Ventilator 11/12/19 08:00 97.7 113 20 114/63 (80) 99 11/12/19 08:00 114 11/12/19 06:46 113 22 24 11/12/19 04:00 24 11/12/19 04:00 Mechanical Ventilator 11/12/19 04:00 98.2 112 22 138/69 (92) 100 11/12/19 04:00 114 11/12/19 02:56 114 20 24 11/12/19 00:00 Mechanical Ventilator 11/12/19 00:00 99.3 97 22 140/70 (93) 99 11/12/19 00:00 117 11/11/19 22:43 116 23 24 11/11/19 20:00 Mechanical Ventilator 11/11/19 20:00 117 11/11/19 20:00 99.0 110 18 113/56 (75) 98 11/11/19 20:00 24 11/11/19 19:00 115 23 24 11/11/19 16:00 24 11/11/19 16:00 98.1 108 20 117/61 (79) 98 11/11/19 16:00 109 11/11/19 16:00 Mechanical Ventilator 11/11/19 15:10 109 26 24 11/11/19 12:00 98.6 102 22 128/65 (86) 98 11/11/19 12:00 111 11/11/19 12:00 Mechanical Ventilator 11/11/19 12:00 24 11/11/19 10:50 110 25 24 11/11/19 08:00 24 11/11/19 08:00 Mechanical Ventilator 11/11/19 08:00 98.2 110 22 131/65 (87) 99 11/11/19 08:00 113 11/11/19 07:15 111 24 24 Intake and Output 11/12/19 11/13/19 19:00 07:00 Intake Total 625 ml 450 ml Output Total 200 ml 300 ml Balance 425 ml 150 ml Free Water 210 ml IV Total 55 ml Tube Feeding 360 ml 450 ml Stool Total 200 ml 300 ml Labs Test 11/10/19 08:20 11/10/19 12:14 11/10/19 17:06 11/10/19 23:44 White Blood Count 21.7 K/UL (4.8-10.8) Red Blood Count 4.02 M/UL (4.70-6.10) Hemoglobin 9.2 G/DL (14.2-18.0) Hematocrit 30.0 % (42.0-52.0) Mean Corpuscular Volume 75 FL (80-99) Mean Corpuscular Hemoglobin 23.0 PG (27.0-31.0) Mean Corpuscular Hemoglobin Concent 30.8 G/DL (32.0-36.0) Red Cell Distribution Width 18.3 % (11.6-14.8) Platelet Count 595 K/UL (150-450) Mean Platelet Volume 6.0 FL (6.5-10.1) Neutrophils (%) (Auto) % (45.0-75.0) Lymphocytes (%) (Auto) % (20.0-45.0) Monocytes (%) (Auto) % (1.0-10.0) Eosinophils (%) (Auto) % (0.0-3.0) Basophils (%) (Auto) % (0.0-2.0) Differential Total Cells Counted 100 Neutrophils % (Manual) 74 % (45-75) Lymphocytes % (Manual) 15 % (20-45) Monocytes % (Manual) 9 % (1-10) Eosinophils % (Manual) 1 % (0-3) Basophils % (Manual) 1 % (0-2) Band Neutrophils 0 % (0-8) Nucleated Red Blood Cells 1 /100 WBC Platelet Estimate Increased Platelet Morphology Normal Hypochromasia 2+ Anisocytosis 2+ Microcytosis 1+ POC Whole Blood Glucose 211 MG/DL (74-106) 240 MG/DL (74-106) 224 MG/DL (74-106) Test 11/11/19 03:45 11/11/19 04:20 11/11/19 05:42 11/11/19 12:54 Sodium Level 134 MMOL/L (136-145) Potassium Level 3.7 MMOL/L (3.5-5.1) Chloride Level 98 MMOL/L (98-107) Carbon Dioxide Level 20 MMOL/L (21-32) Anion Gap 16 mmol/L (5-15) Blood Urea Nitrogen 84 mg/dL (7-18) Creatinine 4.2 MG/DL (0.55-1.30) Estimat Glomerular Filtration Rate 13.8 mL/min (>60) Glucose Level 188 MG/DL (74-106) Calcium Level 10.2 MG/DL (8.5-10.1) White Blood Count 22.2 K/UL (4.8-10.8) Red Blood Count 4.56 M/UL (4.70-6.10) Hemoglobin 10.6 G/DL (14.2-18.0) Hematocrit 34.1 % (42.0-52.0) Mean Corpuscular Volume 75 FL (80-99) Mean Corpuscular Hemoglobin 23.2 PG (27.0-31.0) Mean Corpuscular Hemoglobin Concent 31.0 G/DL (32.0-36.0) Red Cell Distribution Width 18.7 % (11.6-14.8) Platelet Count 599 K/UL (150-450) Mean Platelet Volume 6.6 FL (6.5-10.1) Neutrophils (%) (Auto) % (45.0-75.0) Lymphocytes (%) (Auto) % (20.0-45.0) Monocytes (%) (Auto) % (1.0-10.0) Eosinophils (%) (Auto) % (0.0-3.0) Basophils (%) (Auto) % (0.0-2.0) Differential Total Cells Counted 100 Neutrophils % (Manual) 80 % (45-75) Lymphocytes % (Manual) 13 % (20-45) Monocytes % (Manual) 5 % (1-10) Eosinophils % (Manual) 0 % (0-3) Basophils % (Manual) 0 % (0-2) Band Neutrophils 2 % (0-8) Platelet Estimate Adequate Platelet Morphology Normal Polychromasia 1+ Hypochromasia 2+ Microcytosis 2+ POC Whole Blood Glucose 226 MG/DL (74-106) 107 MG/DL (74-106) Test 11/11/19 18:16 11/12/19 00:04 11/12/19 04:15 11/12/19 05:51 POC Whole Blood Glucose 217 MG/DL (74-106) 223 MG/DL (74-106) Random Vancomycin Level 14.8 ug/mL Test 11/12/19 11:47 11/12/19 17:09 11/13/19 00:35 11/13/19 05:27 POC Whole Blood Glucose 206 MG/DL (74-106) Height (Feet): 5 Height (Inches): 10.00 Weight (Pounds): 123 Objective Physical Exam General Appearance: nad, Chronically Ill Head: normocephalic Eyes: right eye PERRL - Will not open left eye ENT: moist mucus membranes Neck: other - submandibular mass R, fairly rigid with resistance to rotation to L, tracheotomy Respiratory: decreased breath sounds, crackles, other - pacemaker, vent+ Cardiovascular: regular rate, rhythm, edema - anasarca Gastrointestinal: non tender, distended, other - G tube Genitourinary: other ++rectal tube Musculoskeletal: other - Contractures all extremities Neurologic: sensory intact, motor weakness, responsive Psychiatric: other Skin: Decubitus/Ulcer - Stage III right elbow, stage III left elbow, stage II sacrum, stage III scrotum, warm/dry Fitz Campos MD Nov 13, 2019 06:51
[2019-11-13 08:00] VITALS: BP 150/79
--- NOTE | 2019-11-13 08:00 | NUR ---
received pt. lying on bed on vent tolerate vent well vs stable no distress
--- NOTE | 2019-11-13 08:10 | NUR ---
NURSE HAND-OFF REPORT: Important Events on Shift: no significant events on shift Patient Status: stable Diet: gt feeding Pending Orders: y Pending Results/Labs:y Pending MD notification:y Latest Vital Signs: Temperature 98.1 , Pulse 93 , B/P 142 /75 , Respiratory Rate 13 , O2 SAT 92 , Mechanical Ventilator, O2 Flow Rate 15.0 . Vital Sign Comment: stable EKG Rhythm: V-Paced Rhythm change?: N MD Notified?: N - MD Response: Latest Delacruz Fall Score: 70 Fall Risk: High Risk Safety Measures: Call light Within Reach, Bed Alarm Zone 1, Side Rails Side Rails x3, Bed position Low and Locked. Fall Precautions: Yellow Socks Door Sign Patient Fall Education Report given to TAMICA Soares.
--- NOTE | 2019-11-13 08:13 | General Progress Note ---
Subjective Allergies: Coded Allergies: No Known Allergies (Unverified , 06/10/19) Subjective remains ill on vent/ no change on HD vitals noted=remains tachycardic Objective Last 24 Hour Vital Signs Date Time Temp Pulse Resp B/P (MAP) Pulse Ox O2 Delivery O2 Flow Rate FiO2 11/13/19 07:02 93 13 24 11/13/19 04:00 24 11/13/19 04:00 Mechanical Ventilator 11/13/19 04:00 98.1 100 18 142/75 (97) 92 11/13/19 04:00 93 11/13/19 03:03 78 19 24 11/13/19 00:00 98.1 95 18 121/67 (85) 95 11/13/19 00:00 Mechanical Ventilator 11/13/19 00:00 24 11/13/19 00:00 93 11/12/19 23:17 93 18 24 11/12/19 20:00 98.1 95 18 153/74 (100) 99 11/12/19 20:00 Mechanical Ventilator 11/12/19 20:00 24 11/12/19 20:00 94 11/12/19 19:08 94 18 24 11/12/19 16:00 Mechanical Ventilator 11/12/19 16:00 24 11/12/19 16:00 94 11/12/19 15:53 97.9 98 21 107/64 (78) 100 11/12/19 15:30 97 18 24 11/12/19 12:00 98.1 103 19 120/58 (78) 99 11/12/19 12:00 102 11/12/19 12:00 Mechanical Ventilator 11/12/19 12:00 24 11/12/19 11:04 103 20 24 Intake and Output 11/12/19 11/13/19 19:00 07:00 Intake Total 625 ml 450 ml Output Total 200 ml 300 ml Balance 425 ml 150 ml Free Water 210 ml IV Total 55 ml Tube Feeding 360 ml 450 ml Stool Total 200 ml 300 ml Laboratory Tests 11/12/19 11:47: POC Whole Blood Glucose [Pending] 11/12/19 17:09: POC Whole Blood Glucose [Pending] 11/13/19 00:35: POC Whole Blood Glucose [Pending] 11/13/19 05:27: POC Whole Blood Glucose 206H Height (Feet): 5 Height (Inches): 10.00 Weight (Pounds): 123 Objective GENERAL: Ill-appearing male, chronically debilitated. HEENT: Tracheostomy in midline. Questionable fullness in the submandibular region. LUNGS: Coarse breath sounds. reduced breath sounds CARDIAC: S1, S2. Regular rate and rhythm. tachy ABDOMEN: Soft. G-tube. EXTREMITIES: With noted edema. NEUROLOGICAL: Poorly responsive, weak diffusely. Assessment/Plan Assessment/Plan: IMPRESSION: 1. anemia. 2. fevers improved 3. Leukocytosis. 4. hypotension 5. Acute on chronic renal failure. 6. Hyponatremia. 7. Severe protein-calorie malnutrition. 8. Significantly elevated C-reactive protein concerning for infectious etiology. 9. Tracheostomy, G-tube. 10. Ventilator dependence. 11. anasarca 12. Hematuria 13. V pacing 14. hyponatremia 15. transaminitis, HIDA negative PLAN monitor for change antibiotics per ID- wbc worse chronic care; unable to place care noted on vent/ no wean monitor labs and optimize dialysis ongoing- adjust lytes prognosis poor for recovery impression, plan, and exam edited and reviewed in detail care discussed with Kain Tovar MD Nov 13, 2019 08:13
--- NOTE | 2019-11-13 09:40 | NUR ---
CASE MANAGEMENT: REVIEW SI: LEUKOCYTOSIS . ESRD on HD . ANEMIA T 98.1 HR 95 RR 18 BP 150/79 SAT 92% MECH VENT FIO2 24 GLUCOSE 206 CBC w/DIFFERENTIAL PENDING IS: EPOETIN SUBQ MWF HEPARIN SUBQ Q12HR LACTOBACILLUS GT Q12HR CEFTRIAXONE IV Q24HR HD PER RENAL STEP DOWN UNIT STATUS DCP: PLACEMENT PENDING. HEALTH PLAN ASSISTING WITH PLACEMENT
[2019-11-13] MEDS: Lactobacillus-GG tablet GT SCH ×2 (09:54→21:08)
[2019-11-13] MEDS: Heparin 5000 units/ml inj SUBQ SCH ×2 (09:55→21:18)
--- NOTE | 2019-11-13 11:25 | Infectious Diseases Prog Note ---
"Assessment/Plan Assessment/Plan antibiotics : vancomycin iv, ceftriaxone A 1. proteus | providencia pneumonia 2. respiratory failure 3. leucocytosis increased 4. COVID 19 test negative x 2 5. renal failure on HD P 1. d/c iv vancomycin 2. continue ceftriaxone 8 more days 3. will follow up cultures Subjective ROS Limited/Unobtainable: Yes Allergies: Coded Allergies: No Known Allergies (Unverified , 06/10/19) Objective Last 24 Hour Vital Signs Date Time Temp Pulse Resp B/P (MAP) Pulse Ox O2 Delivery O2 Flow Rate FiO2 11/13/19 08:00 98.2 94 18 150/79 (102) 100 11/13/19 08:00 Mechanical Ventilator 11/13/19 08:00 24 11/13/19 07:02 93 13 24 11/13/19 04:00 24 11/13/19 04:00 Mechanical Ventilator 11/13/19 04:00 98.1 100 18 142/75 (97) 92 11/13/19 04:00 93 11/13/19 03:03 78 19 24 11/13/19 00:00 98.1 95 18 121/67 (85) 95 11/13/19 00:00 Mechanical Ventilator 11/13/19 00:00 24 11/13/19 00:00 93 11/12/19 23:17 93 18 24 11/12/19 20:00 98.1 95 18 153/74 (100) 99 11/12/19 20:00 Mechanical Ventilator 11/12/19 20:00 24 11/12/19 20:00 94 11/12/19 19:08 94 18 24 11/12/19 16:00 Mechanical Ventilator 11/12/19 16:00 24 11/12/19 16:00 94 11/12/19 15:53 97.9 98 21 107/64 (78) 100 11/12/19 15:30 97 18 24 11/12/19 12:00 98.1 103 19 120/58 (78) 99 11/12/19 12:00 102 11/12/19 12:00 Mechanical Ventilator 11/12/19 12:00 24 Height (Feet): 5 Height (Inches): 10.00 Weight (Pounds): 123 HEENT: status post trach Respiratory/Chest: lungs clear Cardiovascular: normal rate, regular rhythm, no gallop/murmur Abdomen: soft, non tender, other - GT Extremities: other - + edema, right subclavian catheter Microbiology Date/Time Source Procedure Growth Status 11/10/19 18:20 Stool Clostridium difficile Toxin Assay - Final Complete 11/10/19 12:20 Blood Blood Culture - Preliminary NO GROWTH AFTER 48 HOURS Resulted Laboratory Tests Test 11/12/19 11:47 11/12/19 17:09 11/13/19 00:35 11/13/19 05:27 POC Whole Blood Glucose Pending Pending Pending 206 MG/DL (74-106) H Current Medications Medications (Trade) Dose Ordered Sig/Leonel Route PRN Reason Start Time Stop Time Status Last Admin Dose Admin Acetaminophen (Tylenol) 650 mg Q6H PRN GT Temp >100.5 10/21/19 20:45 11/20/19 20:44 11/10/19 15:03 Ceftriaxone Sodium 1 gm/ Sodium Chloride 55 ml @ 110 mls/hr Q24H IVPB 11/12/19 16:00 11/19/19 15:59 11/12/19 16:20 Chlorhexidine Gluconate (Felipa-Hex 2%) 1 applic DAILY@2000 TOPIC 09/12/19 20:00 12/11/19 19:59 11/12/19 21:45 Clonidine HCl (Catapres Tab) 0.1 mg Q4H PRN GT For High Blood Pressure 09/09/19 12:30 12/08/19 05:29 09/15/19 04:10 Epoetin Andreas (Epoetin Andreas(ESRD on dialysis)) 8,000 unit WED-WED-WED SUBQ 10/25/19 21:00 01/23/20 20:59 11/10/19 21:40 Famotidine (Pepcid) 20 mg DAILY GT 08/30/19 09:00 11/28/19 08:59 11/13/19 09:54 Heparin Sodium (Porcine) (Heparin 5000 units/ml) 5,000 units EVERY 12 HOURS SUBQ 11/02/19 09:00 12/17/19 08:59 11/13/19 09:55 Insulin Aspart (NovoLOG) Q6HR SUBQ 11/08/19 00:00 02/06/20 00:00 11/13/19 05:31 Lactobacillus Acidophilus (Culturelle) 1 tab EVERY 12 HOURS GT 10/03/19 21:00 12/13/19 17:59 11/13/19 09:54 Loperamide HCl (Imodium) 2 mg Q6H PRN NG Diarrhea 10/15/19 07:45 11/14/19 07:44 Sodium Chloride 500 ml @ 999 mls/hr Q31M PRN IV sbp<90 10/28/19 21:30 11/27/19 21:29 [facility]com[facility] 1 ea DAILY PRN MISC Per rx protocol 11/10/19 11:30 12/10/19 11:29 Farnaz Lyle MD Nov 13, 2019 11:25"
[2019-11-13 12:00] VITALS: BP 154/90
--- NOTE | 2019-11-13 13:21 | Nephrology Progress Note ---
Assessment/Plan Plan ESRD - HD TTS + IVF boluses PRN. Anemia of CKD -TUYET. Subjective Subjective Obtunded. Objective Objective Last 24 Hour Vital Signs Date Time Temp Pulse Resp B/P (MAP) Pulse Ox O2 Delivery O2 Flow Rate FiO2 11/13/19 12:00 98.2 90 17 154/90 (111) 100 11/13/19 12:00 93 11/13/19 12:00 Mechanical Ventilator 11/13/19 12:00 24 11/13/19 11:23 92 16 24 11/13/19 08:00 98.2 94 18 150/79 (102) 100 11/13/19 08:00 Mechanical Ventilator 11/13/19 08:00 94 11/13/19 08:00 24 11/13/19 07:02 93 13 24 11/13/19 04:00 24 11/13/19 04:00 Mechanical Ventilator 11/13/19 04:00 98.1 100 18 142/75 (97) 92 11/13/19 04:00 93 11/13/19 03:03 78 19 24 11/13/19 00:00 98.1 95 18 121/67 (85) 95 11/13/19 00:00 Mechanical Ventilator 11/13/19 00:00 24 11/13/19 00:00 93 11/12/19 23:17 93 18 24 11/12/19 20:00 98.1 95 18 153/74 (100) 99 11/12/19 20:00 Mechanical Ventilator 11/12/19 20:00 24 11/12/19 20:00 94 11/12/19 19:08 94 18 24 11/12/19 16:00 Mechanical Ventilator 11/12/19 16:00 24 11/12/19 16:00 94 11/12/19 15:53 97.9 98 21 107/64 (78) 100 11/12/19 15:30 97 18 24 Intake and Output 11/12/19 11/13/19 19:00 07:00 Intake Total 625 ml 450 ml Output Total 200 ml 300 ml Balance 425 ml 150 ml Free Water 210 ml IV Total 55 ml Tube Feeding 360 ml 450 ml Stool Total 200 ml 300 ml Laboratory Tests 11/12/19 17:09: POC Whole Blood Glucose [Pending] 11/13/19 00:35: POC Whole Blood Glucose [Pending] 11/13/19 05:27: POC Whole Blood Glucose 206H 11/13/19 11:44: POC Whole Blood Glucose 150H Height (Feet): 5 Height (Inches): 10.00 Weight (Pounds): 123 Objective Clammy, diaphoretic CV RR Trach clean Lungs CTA Perma Cath RIJ. Abd SNT. BS + E No CCE Barely responsive Erica Pichardo MD Nov 13, 2019 13:21
--- NOTE | 2019-11-13 14:26 | Surgery Progress Note ---
Surgery Progress Note Subjective Procedure Performed Right femoral temporary hemodialysis catheter removal Additional Comments afebrile HD stable persistent leukocytosis no n/v Objective Last 24 Hour Vital Signs Date Time Temp Pulse Resp B/P (MAP) Pulse Ox O2 Delivery O2 Flow Rate FiO2 11/13/19 12:00 98.2 90 17 154/90 (111) 100 11/13/19 12:00 93 11/13/19 12:00 Mechanical Ventilator 11/13/19 12:00 24 11/13/19 11:23 92 16 24 11/13/19 08:00 98.2 94 18 150/79 (102) 100 11/13/19 08:00 Mechanical Ventilator 11/13/19 08:00 94 11/13/19 08:00 24 11/13/19 07:02 93 13 24 11/13/19 04:00 24 11/13/19 04:00 Mechanical Ventilator 11/13/19 04:00 98.1 100 18 142/75 (97) 92 11/13/19 04:00 93 11/13/19 03:03 78 19 24 11/13/19 00:00 98.1 95 18 121/67 (85) 95 11/13/19 00:00 Mechanical Ventilator 11/13/19 00:00 24 11/13/19 00:00 93 11/12/19 23:17 93 18 24 11/12/19 20:00 98.1 95 18 153/74 (100) 99 11/12/19 20:00 Mechanical Ventilator 11/12/19 20:00 24 11/12/19 20:00 94 11/12/19 19:08 94 18 24 11/12/19 16:00 Mechanical Ventilator 11/12/19 16:00 24 11/12/19 16:00 94 11/12/19 15:53 97.9 98 21 107/64 (78) 100 11/12/19 15:30 97 18 24 I&O Intake and Output 11/12/19 11/13/19 19:00 07:00 Intake Total 625 ml 450 ml Output Total 200 ml 300 ml Balance 425 ml 150 ml Free Water 210 ml IV Total 55 ml Tube Feeding 360 ml 450 ml Stool Total 200 ml 300 ml Dressing: other Wound: other Cardiovascular: RSR Respiratory: decreased breath sounds Abdomen: soft, non-tender, present bowel sounds Extremities: no tenderness, no cyanosis Laboratory Tests Test 11/12/19 17:09 11/13/19 00:35 11/13/19 05:27 11/13/19 11:44 POC Whole Blood Glucose Pending Pending 206 MG/DL (74-106) H 150 MG/DL (74-106) H Plan Problems: (1) Anemia (2) Hyponatremia (3) Leukocytosis Assessment & Plan: Tracheostomy, left chest pacemaker are again demonstrated. There is bilateral interstitial and airspace disease and bilateral pleural fluid again demonstrated. This appears more severe than on the prior study. Bilateral interstitial and airspace infiltrates versus edema. Bilateral pleural effusions Leukocytosis, anemia, tachycardia, abnormal labs. Wound evaluated and likely etiology of patient's sepsis. Leukocytosis etiology work-up antibiotics per infectious disease Appreciate nephrology input transfuse with dialysis We will follow with recommendations thank you allowing participation's care plan HD access temp HD discussed with medical teams line okay HD as per renal persistent leukocytosis flow cyto noted improving trending down right fem line removed wbc fluctuating h/h stable lft's elevated There is a right pleural effusion Gallbladder demonstrates tiny wall adherent nonmobile echogenic foci, some possible mural calcifications, and comet tail artifact in the anterior wall. Patient unable to report sonographic Kent's sign. Common bile duct measures 4 mm in diameter. No intrahepatic biliary ductal dilatation. Liver demonstrates normal echogenicity, no focal abnormality. There is some surface nodularity. Portal vein and hepatic veins are patent. Pancreas is incompletely visualized due to overlying bowel gas, visualized portions are unremarkable. Spleen is unremarkable. Left kidney measures 8.7 cm in length. Right kidney measures 8.9 cm length. Both kidneys demonstrate increased echogenicity. There is no hydronephrosis. No focal abnormality . Abdominal aorta is partially obscured by bowel gas, visualized portions are non-aneurysmal . A gastrostomy is noted Impression: Tiny wall adherent nonmobile gallbladder echogenic foci, may reflect wall adherent calculi, small polyps, and/or pleural calcifications. Anterior wall comet tail artifact suggests foci of adenomyomatosis. Normal caliber common bile duct Possible hepatic surface nodularity, could indicate cirrhotic change Echogenic kidneys, consistent with medical renal disease. No hydronephrosis Right pleural effusion Gastrostomy Note nonvisualization of portions of the pancreas and abdominal aorta HIDA NEGATIVE trend labs (4) Ventilator dependent (5) Right lower lobe pneumonia (6) Hypokalemia (7) Hyperkalemia (8) Anasarca (9) Decubitus skin ulcer Assessment & Plan: pt presented on admission with generalized edemae.Skin assessed under tracheostomy and no areas of concerns noted. GT Insertion is marginally erythematous with small amt slough at stoma. Unstageable Pressure Injury R elbow. Base of wound is 100% yellow slough,Borders are erythematous. Wound oozing small amt haemopurulent exudate.Darker skin tone without elevation in skin temp or erythema periwound. Pt's penis and scrotum are grossly edematous and enlarged and weeping serous exudate from numerous sites both from penis and scrotum. Two small open wounds noted at base of at base of shaft of penis ,and contreras aspect of scrotum. Both wounds oozing large amt sanguineous and serosanguineous exudate. Multiple open wounds with Biofilm at base of each wounds noted to contreras/lateral,inferior and posterior aspects of scrotum. These wounds noted to be oozing moderate amts of serosanguineous exudate. Hypertrophic scar with scattered areas of hyperpigmentation noted to Sacrum. DTPI noted to L Buttocks (L)7cm x (W)9cm. Base of wound is purple and indurated.Darker skin tone without erythema,induration or fluctuance R and L ischial tuberosities. Both heels are boggy with non-blanchable erythema. potential decline given chronic illness Tx.Plan: Cleanse wound R elbow with Saline. Apply TheraHoney, Apply Moisture Barrier Paste periwound. Cover with Optifoam drsg.Change Daily and prn. Wash GT site with soap and water.Pat dry. Apply Zinc Oxide Paste to GT site Daily. Leave Open to Air. Apply Zinc Oxide Paste to entire Scrotum, Place ABD pads to R and L lateral, and posterior aspects of scrotum TWICE daily. Apply Cavilon Skin Barrier to malleoli and both Heels. Cover each site with Optifoam drsgs. Change every 7 days and prn. Reposition at least every 2hours or as tolerated. Off-load heels with Pillows. APM/BECCA Mattress overlay. (10) Malnutrition Assessment & Plan: DAILY ESTIMATED NEEDS: Needs based on Renal, critical care, wound/ 61kg 22-30 kcals/kg 0746-1238 total kcals 1.25-2 g protein/kg 76-122 g total protein Fluid per MD, now on HD NUTRITION DIAGNOSIS: * Swallowing difficulty R/T respiratory failure, dysphagia as evidenced by trach/vent dep, PEG dep * Increased kcal/prot needs R/T wound healing as evidenced by admitted w/ multiple pressure injuries including full thickness wounds at junction of Shaft of penis, dorsal scrotum, R elbow, and DTPI @ L buttocks. CURRENT TF:Osmolite 1.2 @ 60ml/hr x 20 hrs + Garo BID ENTERAL NUTRITION RECOMMENDATIONS: Vital AF 1.2 @ 60ml/hr x 20 hrs to provide 1200ml, 1440kcal, 90g prot, 973ml free water * Rec 20 hr run time for GI rest. -> W/ improved GI status, rec Vital AF 1.2, an elemental and carb controlled TF -> monitor lytes and renal fxn closely, monitor need for renal TF -> TF @ goal will provide 1642mg K and 2025mg Phos -> HOB over 30 degrees/ water flush per MD -------- Trial of Osmolite 1.2 continue for now- Goal of 60ml/hr for 20 hrs (4 hrs bowel rest) to provide 1200ml, 1440 kcal, 67g pro, 984ml free H2O, -> Rec to add prosource 1 pack daily (11g pro) to better meet est pro needs. -> Monitor BG, K closely. Pt would require increased insulin coverage as TF at goal would provide 56g more carbs per day. ADDITIONAL RECOMMENDATIONS: * Per SNF: HT=63" WW=936 lbs (vs EMR wt of 166lbs) -> obtain re-calibrated bedscale wt, rec daily wt monitoring * Wound healing: con't Nephrovite + Garo BID/ Vit C dosing per Nephro * Monitor renal fxn and lytes closely w/ non-renal TF ->K low, phos wnl;updated mag level; rec increased insulin w/ BG labs * Daily wts w/ drop to 118-20 lbs, rec to recalibrate for accurate CBW * Consider DC Miralax if medically appropriate: +rectal tube (11) Uremia (12) CKD (chronic kidney disease) stage 5, GFR less than 15 ml/min (13) Colon distention Assessment & Plan: discussed with GI likely functional as having lots of loose bm rectal tube kub f/u s/p colonoscopy - findings reviewed with GI improved cont diet as tolerated repeat KUB Marked distention of the sigmoid colon. 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 No evidence of bowel wall thickening or pneumatosis 12 mm focus of contrast enhancement in the right pectineus muscle. While nonspecific in appearance, appearance raises concern for a possible pseudoaneurysm. Ill- defined thickening of the pectus medius muscle could indicate some intramuscular hemorrhage. The above findings were phoned to Dr. Urias at the time of interpretation Large bilateral pleural effusions Hazy pulmonary parenchymal opacities as well as dense consolidative opacities most likely represent pulmonary edema, but could represent pneumonia Evidence of anasarca elsewhere, with generalized edema of the subcutaneous fat Bladder wall thickening, raises concern for cystitis. Avalos catheter in place Colonic diverticulosis. No evidence of diverticulitis. Tracheostomy Pacemaker Gastrostomy Gastrostomy again demonstrated in satisfactory position. The stomach is otherwise unremarkable. The distal esophagus and duodenum are unremarkable. Ingested contrast reaches the colon. No small bowel distention or small bowel wall thickening. Interim placement of a rectal tube. There are a few colonic diverticula. No definite evidence of acute diverticulitis. The appendix is prominent in caliber, as previously No free or loculated intraperitoneal gas or fluid is evident. Again demonstrated is marked gaseous distention of the sigmoid colon which m easures up to 12.6 cm in diameter, with the proximal aspect located laterally to the distal aspect, and caliber transition in the mesenteric root of both entry points. However, there is stool within the proximal portion which appears to be at least partial ly contrast opacified, and no definite persisting of the vascular pedicle demonstrated. The liver, gallbladder, bile ducts, pancreas, spleen, adrenals, kidneys are unremarkable. There are accessory splenules demonstrated. No retroperitoneal or mesenteric mass or adenopathy. No pelvic mass or adenopathy. The prostate is enlarged and protrudes into the inferior bladder. The bladder is thick-walled. Previously demonstrated Avalos catheter has been removed. Again demonstrated is a large right pleural effusion and a moderate to large left pleural effusion. Again demonstrated are compressive atelectatic changes of significant portions of both lower lobes. Pacemaker wires are seen within the heart. Previously demonstrated high attenuation focus within the right pectineus muscle is not evident. However, there is a low-attenuation area which measures 2 cm diameter centrally which is not evident previously. There is diffuse edema of the subcutaneous fat. This is less severe than was demonstrated previously. There are degenerative proliferative changes of the lumbar spine. Impression: Abnormal configuration of the sigmoid colon, with marked distention of a sigmoid, inversion of the relationships of the proximal and descending colon, and evidence of immediately apposed transition point raises concern for sigmoid volvulus. However, similarity to the prior exam, presence of what appears to be contrast opacified stool within the dilated segment, and lack of evidence of twisting of the vascular pedicle raises the possibility that this is baseline for this patient or possibly dysfunctional in nature. Correlate with clinical findings Enlarged prostate with protrusion into the bladder floor. Bladder neoplasm not completely excludable as a result Thick-walled bladder, may indicate cystitis or be due to chronic bladder lumen obstruction related to the above Abnormalities right pectineus muscle, with a 2 cm central low attenuation area. Note that previous exam have a high attenuation focus suspicious for a small pseudoaneurysm. 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 Colonic diverticulosis. No evidence of diverticulitis Gastrostomy in good position Rectal tube in good position Large right and moderate to large left pleural effusions. Resultant compressive pulmonary atelectatic changes or graft edema subcutaneous fat, less severe than was demonstrated on prior 08/17/2019 exam. Jonathan Urias Nov 13, 2019 14:26
[2019-11-13] MEDS: cefTRIAXone 1 GM in NS 55 ML IVPB SCH (15:26)
[2019-11-13 16:00] VITALS: BP 134/75
--- NOTE | 2019-11-13 19:15 | NUR ---
report given to farzana DAVEY
--- NOTE | 2019-11-13 19:59 | NUR ---
NURSE NOTES: Received pt from [facility]. Pt nonverbal. Bed in lowest position. Call light within reach. Called and left a message with [facility] regarding the order for HD tomorrow. Will continue to monitor.
[2019-11-13 20:00] VITALS: BP 125/73
[2019-11-13] MEDS: Dyna-Hex 2% Top Sol 2oz TOPIC SCH (20:00)
[2019-11-13] MEDS: Epoetin Alfa-EPBX(ESRD on dialysis)4000 units/ml vial SUBQ SCH (21:08)
--- NOTE | 2019-11-13 21:28 | NUR ---
NURSE NOTES: called and left a message with Dr. Ramirez regarding pts elevated HR of 120's since start of shift. Awaiting call back.
--- NOTE | 2019-11-13 23:01 | General Progress Note ---
Subjective Allergies: Coded Allergies: No Known Allergies (Unverified , 06/10/19) Subjective above noted NAD on TF non communicative Objective Last 24 Hour Vital Signs Date Time Temp Pulse Resp B/P (MAP) Pulse Ox O2 Delivery O2 Flow Rate FiO2 11/13/19 20:00 98.1 125 21 125/73 (90) 99 11/13/19 19:30 117 18 24 11/13/19 16:00 24 11/13/19 16:00 92 11/13/19 16:00 98.4 92 18 134/75 (94) 100 11/13/19 16:00 Mechanical Ventilator 11/13/19 15:10 88 17 24 11/13/19 12:00 98.2 90 17 154/90 (111) 100 11/13/19 12:00 93 11/13/19 12:00 Mechanical Ventilator 11/13/19 12:00 24 11/13/19 11:23 92 16 24 11/13/19 08:00 98.2 94 18 150/79 (102) 100 11/13/19 08:00 Mechanical Ventilator 11/13/19 08:00 94 11/13/19 08:00 24 11/13/19 07:02 93 13 24 11/13/19 04:00 24 11/13/19 04:00 Mechanical Ventilator 11/13/19 04:00 98.1 100 18 142/75 (97) 92 11/13/19 04:00 93 11/13/19 03:03 78 19 24 11/13/19 00:00 98.1 95 18 121/67 (85) 95 11/13/19 00:00 Mechanical Ventilator 11/13/19 00:00 24 11/13/19 00:00 93 11/12/19 23:17 93 18 24 Intake and Output 11/12/19 11/13/19 19:00 07:00 Intake Total 625 ml 495 ml Output Total 200 ml 300 ml Balance 425 ml 195 ml Intake Oral 45 ml Free Water 210 ml IV Total 55 ml Tube Feeding 360 ml 450 ml Stool Total 200 ml 300 ml Laboratory Tests 11/13/19 00:35: POC Whole Blood Glucose [Pending] 11/13/19 05:27: POC Whole Blood Glucose 206H 11/13/19 11:44: POC Whole Blood Glucose 150H 11/13/19 16:08: POC Whole Blood Glucose 173H Height (Feet): 5 Height (Inches): 10.00 Weight (Pounds): 123 Objective Debilitated AA man NCAT (+) trach coarse BS RR, tachy abd less distended, anasarca, (+) GT, (+) rectal tube ext contracted Assessment/Plan Assessment/Plan: Assessment - abdominal distention, due to colonic dysmotility, - colonoscopy negative to hepatic flexure - diarrhea - presumed TF related - abnormal LFT - ? etiology --> HIDA negative and CT negative - Anemia - leukocytosis - stool OB (+) - EGD --> gastritis - Renal failure - Anasarca - resp failure, trach - b/l pleural effusions - dysphagia, GT - encephalopathy, contracted - poor px Recommendations - continue TF - check hepatitis markers - negative - rectal tube - roll side to side as feasible (hard due to severe contractions) - Elevate HOB - f/u labs - PPI - supportive care Ronny Mustafa MD Nov 13, 2019 23:01
[2019-11-14] VITALS: BP 110/69
[2019-11-14 04:00] VITALS: BP 146/75
[2019-11-14 04:28] LABS: BASOPHILS % (AUTO) 1.2 % (0.0-2.0); EOSINOPHILS % (AUTO) 5.1 % (0.0-3.0); HEMATOCRIT 32.6 % (42.0-52.0); LYMPHOCYTES % (AUTO) 12.6 % (20.0-45.0); MEAN CORPUSCULAR VOLUME 75 FL (80-99); MONOCYTES % (AUTO) 4.8 % (1.0-10.0); NEUTROPHILS % (AUTO) 76.4 % (45.0-75.0); PLATELET COUNT 570 K/UL (150-450); RED BLOOD COUNT 4.34 M/UL (4.70-6.10); RED CELL DISTRIBUTION WIDTH 18.8 % (11.6-14.8); WHITE BLOOD COUNT 17.4 K/UL (4.8-10.8)
[2019-11-14 04:44] LABS: BLOOD UREA NITROGEN 103 mg/dL (7-18); CALCIUM 10.1 MG/DL (8.5-10.1); CARBON DIOXIDE 21 MMOL/L (21-32); CREATININE 4.7 MG/DL (0.55-1.30)
[2019-11-14 04:53] LABS: CHLORIDE 101 MMOL/L (98-107); POTASSIUM 3.1 MMOL/L (3.5-5.1); SODIUM 136 MMOL/L (136-145)
[2019-11-14] MEDS: NovoLOG Insulin Flexpen SUBQ SCH ×4 (05:31→17:19)
--- NOTE | 2019-11-14 06:57 | Hematology/Onc Progress Note ---
Assessment/Plan Assessment/Plan Assessment/recs # Anemia due to chronic disease/kidney disease as well, gi bleed + occult + noted --> was on iron in the past, now on hold --> has been started on Epogen sq --> as per renal care --> egd done and shows gastritis --> on ppi --> egd showed gastritis, colo recently done --> hgb 9-->8. 7-->7.6-->9.2-->8.9-->9.2->9.3-->8.8->9.9-->9.2-->8.1-->8.7-->7.9-->8.6-->8.9--> 8.2->9-->9.3->8.9-->9.5-->10.6->9.2-->10->8.9--> 8.3-->8.9-->9.9-->9.3-->9-->9.3->11-->8.6->8.7>9-->8.4-->9.1-->8.8>10.6 --> spep ordered->wnl # Leukocytosis - with multiple infections, VRE UTI, flow is negative --> wbc trend 33-->28-->25->23->22->23->24->17.3-->17-->14->16-->15.6--> 14-->14->13->19->18->17->22->22->19->17-->18->20-->15-->14->16-->14-->17->18-->1 7->15-->16-->17->28->19-->21-->19-->23->15-->19 --> + blood cultures with coag neg staph likely contaminated --> as per id recs --> has ordered a flow cytometry (with pathology) --> does show increased nK cell activity --> JOURDAN 2 and bcr-abl labs ordered (these are send outs)->negative --> plt 585-->613-->649-->669->663-->529-->506-->620-->720 --> on abx, linezolid and zosyn--> zosyn-->gent-->off-->vanc/zosyn -->cefepime/colistin-->cefepime/vanc-->ctx # Elevated ddimer on admission --> duplex lower legs neg for dvt # Respiratory failure --> per pulm, s/p trach --> COVID 19 test negative x 2 # Hyperlipidemia --> statin po # Dysphagia s/p gtube with nepro --> per gi # ESRD with r fem julito --> hd as per renal # Dvt ppx heparin sq Appreciate consultation and matt Rn Subjective Allergies: Coded Allergies: No Known Allergies (Unverified , 06/10/19) Subjective 08/15 meds noted, no bleeding, hgb 8.8, wbc 28, path flow pending 08/16 flow pending dw pathologist, results pending, wbc 25, hgb 9 08/17 labs reviewed, meds reviewed, meds noted, no night sweats 08/19 remains obtunded, on vent/trach, no bleeding wbc 21.7 08/20 labs have been reviewed, no bleeding, wbc still elev, path reviewed 08/21 labs are noted, no bleeding, on vent, wbc better 08/22 labs noted, no bleeding, meds reviewed, wbc 24 hgb 7.6 08/23 vent, off abx, c diff negative, h/h stable 08/24 labs reviewed, on abx, wbc 17, hgb 8.9, no hemolysis 08/26 reviewed flow and is negative for leukemia, matt rn 08/27 meds reviewed, no night sweats, matt rn, no major bleeding 08/28 meds reivewed, labs noted 08/29 wbc is stable, approx 15, hgb 8.8, no hemolysis 08/30 labs are noted, is for colo today, hgb 9.9 08/31 right fem julito in place, unchanged, hgb 9.2, gi aware 09/01 labs noted, hgb 8.8, plt >600, no bleeding 09/02 labs noted, no bleeding, with elev wbc still, no new changes 09/03 meds are noted, no bleeding, labs reviewed hgb 8.6 09/04 no major events, hd as per renal, abx, no bleeding hgb low 09/05 labs are noted, no bleeding, meds have been reviewed 09/06 no new labs no hemolysis, cbc is noted, no bleeding 09/07 meds reviewed, no bleeding, matt rn, permacath functioning well 09/09 meds reviewed, wbc still elevated, as per id recs, cbc noted 09/10 is obtunded, with gutbe in place, labs reviewed 09/11 obtunded, as per id, observe now off abx, labs noted, wbc 19 09/12 cbc is pending, remains on epogen, also off abx 09/13 labs reviewed, no bleeding, elev wbc, no night sweats 09/14 meds noted, no bleeding, wbc 19, hgb 9.5, no night sweats 09/21 obtunded, remains on vent, labs noted, no bleeding, hgb 8.9 09/22 obtunded, labs noted, no bleeding, on vent, unchanged 09/23 unchanges, wbc remains elevated 20k, on abx, on vent 09/24 labs have been reviewed, no bleeding, wbc 15, may need abx 09/25 formula gtube changed, labs noted, remains obtunded, hgb 9.3 09/26 labs have been reviewed, no bleeding, matt rn, no night sweats 09/27 meds reviewed, no bleeding, wbc 14, on abx, remains obtunded 09/28 remains obtunded, no bleeding, wbc better, hgb 8.9, no hemolysis, plt 506 09/30 on colisitn, wbc elevated, cefepime added per id, hgb stable 10/01 labs reviewed, no bleeding, matt rn, no major events noted, wbc 14, hgb 10.6 10/02 labs have been noted, hgb 9.2, wbc 17, on abx, matt wright 10/03 continue on tube feeds, no bleeding, on vent, wbc remains elevated 10/04 remains ibtunded, is on a mechanical ventilator with tube feeds noted 10/05 labs are noted, hgb 8.6, wbc remains elevated, have ordered for spep 10/07 obtunded on vent, with gtube feeds, labs reviewed, matt rn 10/08 labs are noted, on vent/trach, hgb 10.2, remains obtunded 10/09 labns noted, wbc 15, hgb 8.9, remains altered, on tfs 10/10 labs noted, holding tube feeds, matt rn, hg stable 8.3 currently 10/11 remains on tfs, supportive care, labs noted, no bleeding 10/12 remains obtunded, hgb 8.9, no hemolysis is seen 10/14 labs reviewed, no bleeding, pending potential hd if rn available 10/15 is on vent, with gtube, labs reviewed, no bleeding, to get hd soon 10/16 remains on vent, matt rn at bedside, wbc 15, abx prn, plt also higher, will monitor 10/17 on vent, continue on tube feeds via gtube, labs improved 10/18 labs noted, remains on vent, and tube feeds, no major changes 10/19 nad, no bleeding, labs reviewed, no night sweats, bp elevated, cards aware 10/21 labs pending, with gtube running, on mec vent, abx off 10/22 labs reviewed, no major changes, wbc 18, plt [id number], on gtube feeds 10/23 labs reviewed, meds noted, on epogen and lovenox sq, obtunded, is nv 9. labs are noted, wbc 28, hgb 8.6, no hemolysis is noted 10/27 labs reviewed, on mech vent, on gtube feeds, no bleeding wbc 21 10/28 labs noted, wbc 19, plt remains elevated, hd as per renal Dr. Frank 10/29 obtunded, gt feedings on hold, wbc 19, hgb 9, no bleeding 10/30 labs reviewed, no bleeding, wbc 21, hgb 9, hd as per renal care 10/31 labs are noted, wbc 19, hgb 8.4, on vent, obtunded 11/01 obtunded state, no bleeding, meds reviewed, on heparin started today, matt wright 11/02 nv, trach, no bleeding, wbc has increased likely due to infection 11/03 is off abx, no bleeding, meds noted, no hemolysis seen, wbc 15 11/04 meds noted, no bleeding, dw rn 11/06 no residual, labs reviewed, no night sweats, no hemoptysis 11/07 labs are noted, wbc 18, hgb 9, no hemolysis 11/08 is obtunded, stable, nv, getting hd today in am 11/09 labs reviewed, remains obtunded, cbc has been ordered for today 11/11 labs are noted, wbc 22, hgb 10.6, no hemolysis is noted, on epo 11/12 sleeping, with gtf and vent overnight tolerating well, no issues 11/13 labs are noted, no beeding, wbc 17, on abx, tachy overnight Objective Objective Current Medications Medications (Trade) Dose Ordered Sig/Leonel Route PRN Reason Start Time Stop Time Status Last Admin Dose Admin Acetaminophen (Tylenol) 650 mg Q6H PRN GT Temp >100.5 10/21/19 20:45 11/20/19 20:44 11/10/19 15:03 Ceftriaxone Sodium 1 gm/ Sodium Chloride 55 ml @ 110 mls/hr Q24H IVPB 11/12/19 16:00 11/19/19 15:59 11/13/19 15:26 Chlorhexidine Gluconate (Felipa-Hex 2%) 1 applic DAILY@2000 TOPIC 09/12/19 20:00 12/11/19 19:59 11/13/19 20:00 Clonidine HCl (Catapres Tab) 0.1 mg Q4H PRN GT For High Blood Pressure 09/09/19 12:30 12/08/19 05:29 09/15/19 04:10 Epoetin Andreas (Epoetin Andreas(ESRD on dialysis)) 8,000 unit WED-WED-WED SUBQ 10/25/19 21:00 01/23/20 20:59 11/13/19 21:08 Famotidine (Pepcid) 20 mg DAILY GT 08/30/19 09:00 11/28/19 08:59 11/13/19 09:54 Heparin Sodium (Porcine) (Heparin 5000 units/ml) 5,000 units EVERY 12 HOURS SUBQ 11/02/19 09:00 12/17/19 08:59 11/13/19 21:18 Heparin Sodium (Porcine) (Heparin Sod 1000 units/ml 10ml) 2,000 unit ONCE PRN IV dialysis 11/14/19 08:00 11/14/19 23:59 Heparin Sodium (Porcine) (Heparin) 1,000 unit POSTHD PRN INJ Dialysis Use 11/14/19 08:00 11/14/19 23:59 Insulin Aspart (NovoLOG) Q6HR SUBQ 11/08/19 00:00 02/06/20 00:00 11/14/19 05:31 Lactobacillus Acidophilus (Culturelle) 1 tab EVERY 12 HOURS GT 10/03/19 21:00 12/13/19 17:59 11/13/19 21:08 Loperamide HCl (Imodium) 2 mg Q6H PRN NG Diarrhea 10/15/19 07:45 11/14/19 07:44 Sodium Chloride 500 ml @ 999 mls/hr Q31M PRN IV sbp<90 10/28/19 21:30 11/27/19 21:29 Sodium Chloride 1,000 ml @ 500 mls/hr Q2H PRN IVLG sbp<90 during hd 11/14/19 08:00 11/14/19 23:59 Last 24 Hour Vital Signs Date Time Temp Pulse Resp B/P (MAP) Pulse Ox O2 Delivery O2 Flow Rate FiO2 11/14/19 04:00 24 11/14/19 04:00 97.9 92 21 146/75 (98) 100 11/14/19 04:00 91 11/14/19 04:00 Mechanical Ventilator 11/14/19 03:30 97 14 24 11/14/19 00:00 Mechanical Ventilator 11/14/19 00:00 93 11/14/19 00:00 24 11/14/19 00:00 98.5 93 17 110/69 (83) 100 11/13/19 23:20 77 14 24 11/13/19 20:00 98.1 125 21 125/73 (90) 99 11/13/19 20:00 24 11/13/19 20:00 Mechanical Ventilator 11/13/19 20:00 124 11/13/19 19:30 117 18 24 11/13/19 16:00 24 11/13/19 16:00 92 11/13/19 16:00 98.4 92 18 134/75 (94) 100 11/13/19 16:00 Mechanical Ventilator 11/13/19 15:10 88 17 24 11/13/19 12:00 98.2 90 17 154/90 (111) 100 11/13/19 12:00 93 11/13/19 12:00 Mechanical Ventilator 11/13/19 12:00 24 11/13/19 11:23 92 16 24 11/13/19 08:00 98.2 94 18 150/79 (102) 100 11/13/19 08:00 Mechanical Ventilator 11/13/19 08:00 94 11/13/19 08:00 24 11/13/19 07:02 93 13 24 11/13/19 04:00 24 11/13/19 04:00 Mechanical Ventilator 11/13/19 04:00 98.1 100 18 142/75 (97) 92 11/13/19 04:00 93 11/13/19 03:03 78 19 24 11/13/19 00:00 98.1 95 18 121/67 (85) 95 11/13/19 00:00 Mechanical Ventilator 11/13/19 00:00 24 11/13/19 00:00 93 11/12/19 23:17 93 18 24 11/12/19 20:00 98.1 95 18 153/74 (100) 99 11/12/19 20:00 Mechanical Ventilator 11/12/19 20:00 24 11/12/19 20:00 94 11/12/19 19:08 94 18 24 11/12/19 16:00 Mechanical Ventilator 11/12/19 16:00 24 11/12/19 16:00 94 11/12/19 15:53 97.9 98 21 107/64 (78) 100 11/12/19 15:30 97 18 24 11/12/19 12:00 98.1 103 19 120/58 (78) 99 11/12/19 12:00 102 11/12/19 12:00 Mechanical Ventilator 11/12/19 12:00 24 11/12/19 11:04 103 20 24 11/12/19 08:00 24 11/12/19 08:00 Mechanical Ventilator 11/12/19 08:00 97.7 113 20 114/63 (80) 99 11/12/19 08:00 114 Intake and Output 11/13/19 11/14/19 19:00 07:00 Intake Total 1000 ml 450 ml Balance 1000 ml 450 ml Intake Oral 495 ml Free Water 100 ml Tube Feeding 405 ml 450 ml # Bowel Movements 100 20 Labs Test 10/3/20 12:54 11/11/19 18:16 11/12/19 00:04 11/12/19 04:15 POC Whole Blood Glucose 107 MG/DL (74-106) 217 MG/DL (74-106) 223 MG/DL (74-106) Random Vancomycin Level 14.8 ug/mL Test 11/12/19 05:51 11/12/19 11:47 11/12/19 17:09 11/13/19 00:35 Test 11/13/19 05:27 11/13/19 11:44 11/13/19 16:08 11/14/19 00:36 POC Whole Blood Glucose 206 MG/DL (74-106) 150 MG/DL (74-106) 173 MG/DL (74-106) Test 11/14/19 03:24 11/14/19 05:20 White Blood Count 17.4 K/UL (4.8-10.8) Red Blood Count 4.34 M/UL (4.70-6.10) Hemoglobin 10.0 G/DL (14.2-18.0) Hematocrit 32.6 % (42.0-52.0) Mean Corpuscular Volume 75 FL (80-99) Mean Corpuscular Hemoglobin 23.0 PG (27.0-31.0) Mean Corpuscular Hemoglobin Concent 30.6 G/DL (32.0-36.0) Red Cell Distribution Width 18.8 % (11.6-14.8) Platelet Count 570 K/UL (150-450) Mean Platelet Volume 6.6 FL (6.5-10.1) Neutrophils (%) (Auto) 76.4 % (45.0-75.0) Lymphocytes (%) (Auto) 12.6 % (20.0-45.0) Monocytes (%) (Auto) 4.8 % (1.0-10.0) Eosinophils (%) (Auto) 5.1 % (0.0-3.0) Basophils (%) (Auto) 1.2 % (0.0-2.0) Sodium Level 136 MMOL/L (136-145) Potassium Level 3.1 MMOL/L (3.5-5.1) Chloride Level 101 MMOL/L (98-107) Carbon Dioxide Level 21 MMOL/L (21-32) Blood Urea Nitrogen 103 mg/dL (7-18) Creatinine 4.7 MG/DL (0.55-1.30) Estimat Glomerular Filtration Rate 12.1 mL/min (>60) Glucose Level 212 MG/DL (74-106) Calcium Level 10.1 MG/DL (8.5-10.1) POC Whole Blood Glucose 197 MG/DL (74-106) Height (Feet): 5 Height (Inches): 10.00 Weight (Pounds): 123 Objective Physical Exam General Appearance: nad, Chronically Ill Head: normocephalic Eyes: right eye PERRL - Will not open left eye ENT: moist mucus membranes Neck: other - submandibular mass R, fairly rigid with resistance to rotation to L, tracheotomy Respiratory: decreased breath sounds, crackles, other - pacemaker, vent+ Cardiovascular: regular rate, rhythm, edema - anasarca Gastrointestinal: non tender, distended, other - G tube Genitourinary: other ++rectal tube Musculoskeletal: other - Contractures all extremities Neurologic: sensory intact, motor weakness, responsive Psychiatric: other Skin: Decubitus/Ulcer - Stage III right elbow, stage III left elbow, stage II sacrum, stage III scrotum, warm/dry Fitz Campos MD Nov 14, 2019 06:57
--- NOTE | 2019-11-14 07:23 | NUR ---
NURSE HAND-OFF REPORT: Important Events on Shift: HD ordered for today, [facility] was called. No call back. Endorsed Patient Status: stable Diet: gtfeeding Pending Orders: y Pending Results/Labs:y Pending MD notification:y Latest Vital Signs: Temperature 97.9 , Pulse 92 , B/P 146 /75 , Respiratory Rate 21 , O2 SAT 100 , Mechanical Ventilator, O2 Flow Rate 15.0 . Vital Sign Comment: stable EKG Rhythm: V-Paced Rhythm change?: N MD Notified?: N - MD Response: Latest Delacruz Fall Score: 70 Fall Risk: High Risk Safety Measures: Call light Within Reach, Bed Alarm Zone 2, Side Rails Side Rails x3, Bed position Low and Locked. Fall Precautions: Yellow Socks Door Sign Patient Fall Education Report given to [facility].
[2019-11-14 08:00] VITALS: BP 149/80
[2019-11-14] MEDS ORDERED: Heparin Sod 1000 units/ml 10ml IV PRN (08:00)
[2019-11-14] MEDS ORDERED: Heparin 1000 units/ml 1ml Vial INJ PRN (08:00)
--- NOTE | 2019-11-14 08:00 | NUR ---
NURSE NOTES: Received patient in bed not in any acute cardio respiratory distress connected to ventilator with setting well tolerated. Suction secretion prn. Complete bath provided. Head to toe assessment done. Received call patient will be discharged today daughter made aware.wound picture taken.
--- NOTE | 2019-11-14 08:04 | General Progress Note ---
Subjective ROS Limited/Unobtainable: Yes Allergies: Coded Allergies: No Known Allergies (Unverified , 06/10/19) Subjective remains ill on vent/ no change on HD vitals noted tachy but now better Objective Last 24 Hour Vital Signs Date Time Temp Pulse Resp B/P (MAP) Pulse Ox O2 Delivery O2 Flow Rate FiO2 11/14/19 04:00 24 11/14/19 04:00 97.9 92 21 146/75 (98) 100 11/14/19 04:00 91 11/14/19 04:00 Mechanical Ventilator 11/14/19 03:30 97 14 24 11/14/19 00:00 Mechanical Ventilator 11/14/19 00:00 93 11/14/19 00:00 24 11/14/19 00:00 98.5 93 17 110/69 (83) 100 11/13/19 23:20 77 14 24 11/13/19 20:00 98.1 125 21 125/73 (90) 99 11/13/19 20:00 24 11/13/19 20:00 Mechanical Ventilator 11/13/19 20:00 124 11/13/19 19:30 117 18 24 11/13/19 16:00 24 11/13/19 16:00 92 11/13/19 16:00 98.4 92 18 134/75 (94) 100 11/13/19 16:00 Mechanical Ventilator 11/13/19 15:10 88 17 24 11/13/19 12:00 98.2 90 17 154/90 (111) 100 11/13/19 12:00 93 11/13/19 12:00 Mechanical Ventilator 11/13/19 12:00 24 11/13/19 11:23 92 16 24 Intake and Output 11/13/19 11/14/19 19:00 07:00 Intake Total 1000 ml 450 ml Balance 1000 ml 450 ml Intake Oral 495 ml Free Water 100 ml Tube Feeding 405 ml 450 ml # Bowel Movements 100 20 Laboratory Tests 11/13/19 11:44: POC Whole Blood Glucose 150H 11/13/19 16:08: POC Whole Blood Glucose 173H 11/14/19 00:36: POC Whole Blood Glucose [Pending] 11/14/19 03:24: White Blood Count 17.4H, Red Blood Count 4.34L, Hemoglobin 10.0L, Hematocrit 32.6L, Mean Corpuscular Volume 75L, Mean Corpuscular Hemoglobin 23.0L, Mean Corpuscular Hemoglobin Concent 30.6L, Red Cell Distribution Width 18.8H, Platelet Count 570H, Mean Platelet Volume 6.6, Neutrophils (%) (Auto) 76.4H, Lymphocytes (%) (Auto) 12.6L, Monocytes (%) (Auto) 4.8, Eosinophils (%) (Auto) 5.1H, Basophils (%) (Auto) 1.2, Sodium Level 136, Potassium Level 3.1L, Chloride Level 101, Carbon Dioxide Level 21, Blood Urea Nitrogen 103H, Creatinine 4.7H, Estimat Glomerular Filtration Rate 12.1, Glucose Level 212H, Calcium Level 10.1 11/14/19 05:20: POC Whole Blood Glucose 197H Height (Feet): 5 Height (Inches): 10.00 Weight (Pounds): 123 Objective GENERAL: Ill-appearing male, chronically debilitated. HEENT: Tracheostomy in midline. Questionable fullness in the submandibular region. LUNGS: Coarse breath sounds. reduced breath sounds CARDIAC: S1, S2. Regular rate and rhythm. ABDOMEN: Soft. G-tube. EXTREMITIES: With noted edema. NEUROLOGICAL: Poorly responsive, weak diffusely. Assessment/Plan Assessment/Plan: IMPRESSION: 1. anemia. 2. fevers improved 3. Leukocytosis. 4. hypotension 5. Acute on chronic renal failure. 6. Hyponatremia. 7. Severe protein-calorie malnutrition. 8. Significantly elevated C-reactive protein concerning for infectious etiology. 9. Tracheostomy, G-tube. 10. Ventilator dependence. 11. anasarca 12. Hematuria 13. V pacing 14. hyponatremia 15. transaminitis, HIDA negative PLAN monitor for change antibiotics per ID- wbc improved chronic care; unable to place care noted on vent/ no wean monitor labs monitor vitals dialysis ongoing- prognosis poor for recovery impression, plan, and exam edited and reviewed in detail care discussed with Kain Tovar MD Nov 14, 2019 08:04
[2019-11-14] MEDS: Lactobacillus-GG tablet GT SCH ×2 (09:34→20:15)
[2019-11-14] MEDS: Heparin 5000 units/ml inj SUBQ SCH ×2 (09:36→20:15)
--- NOTE | 2019-11-14 10:00 | NUR ---
NURSE NOTES: Seen and examined by Dr. Urias made aware gt feeding held related to abdominal distention. Addendum: 11/14/19 at 1806 by JOSE F HAIRSTON Wrong entry
--- NOTE | 2019-11-14 10:21 | NUR ---
CASE MANAGEMENT: REVIEW SI: LEUKOCYTOSIS . ESRD on HD . ANEMIA T 97.9 HR 91 RR 21 BP 146/75 SAT 100% MECH VENT FIO2 24 WBC 17.4 H/H 10.0/32.6 BUN 103 CR 4.7 GLUCOSE 212 IS: EPOETIN SUBQ MWF HEPARIN SUBQ Q12HR LACTOBACILLUS GT Q12HR CEFTRIAXONE IV Q24HR HD PER RENAL STEP DOWN UNIT STATUS DCP: PLACEMENT PENDING. HEALTH PLAN ASSISTING WITH PLACEMENT
--- NOTE | 2019-11-14 11:04 | Infectious Diseases Prog Note ---
"Assessment/Plan Assessment/Plan antibiotics : ceftriaxone A 1. proteus | providencia pneumonia 2. respiratory failure 3. leucocytosis improving 4. COVID 19 test negative x 2 5. renal failure on HD P 1. continue ceftriaxone 7 more days 2. will follow up cultures Subjective ROS Limited/Unobtainable: Yes Allergies: Coded Allergies: No Known Allergies (Unverified , 06/10/19) Objective Last 24 Hour Vital Signs Date Time Temp Pulse Resp B/P (MAP) Pulse Ox O2 Delivery O2 Flow Rate FiO2 11/14/19 08:00 97.9 89 20 149/80 (103) 100 11/14/19 08:00 90 11/14/19 07:24 91 19 24 11/14/19 04:00 24 11/14/19 04:00 97.9 92 21 146/75 (98) 100 11/14/19 04:00 91 11/14/19 04:00 Mechanical Ventilator 11/14/19 03:30 97 14 24 11/14/19 00:00 Mechanical Ventilator 11/14/19 00:00 93 11/14/19 00:00 24 11/14/19 00:00 98.5 93 17 110/69 (83) 100 11/13/19 23:20 77 14 24 11/13/19 20:00 98.1 125 21 125/73 (90) 99 11/13/19 20:00 24 11/13/19 20:00 Mechanical Ventilator 11/13/19 20:00 124 11/13/19 19:30 117 18 24 11/13/19 16:00 24 11/13/19 16:00 92 11/13/19 16:00 98.4 92 18 134/75 (94) 100 11/13/19 16:00 Mechanical Ventilator 11/13/19 15:10 88 17 24 11/13/19 12:00 98.2 90 17 154/90 (111) 100 11/13/19 12:00 93 11/13/19 12:00 Mechanical Ventilator 11/13/19 12:00 24 11/13/19 11:23 92 16 24 Height (Feet): 5 Height (Inches): 10.00 Weight (Pounds): 123 HEENT: status post trach Respiratory/Chest: lungs clear Cardiovascular: normal rate, regular rhythm, no gallop/murmur Abdomen: soft, non tender, other - GT Extremities: no edema, other - right subclavian catheter Laboratory Tests Test 11/13/19 11:44 11/13/19 16:08 11/14/19 00:36 11/14/19 03:24 POC Whole Blood Glucose 150 MG/DL (74-106) H 173 MG/DL (74-106) H Pending White Blood Count 17.4 K/UL (4.8-10.8) H Red Blood Count 4.34 M/UL (4.70-6.10) L Hemoglobin 10.0 G/DL (14.2-18.0) L Hematocrit 32.6 % (42.0-52.0) L Mean Corpuscular Volume 75 FL (80-99) L Mean Corpuscular Hemoglobin 23.0 PG (27.0-31.0) L Mean Corpuscular Hemoglobin Concent 30.6 G/DL (32.0-36.0) L Red Cell Distribution Width 18.8 % (11.6-14.8) H Platelet Count 570 K/UL (150-450) H Mean Platelet Volume 6.6 FL (6.5-10.1) Neutrophils (%) (Auto) 76.4 % (45.0-75.0) H Lymphocytes (%) (Auto) 12.6 % (20.0-45.0) L Monocytes (%) (Auto) 4.8 % (1.0-10.0) Eosinophils (%) (Auto) 5.1 % (0.0-3.0) H Basophils (%) (Auto) 1.2 % (0.0-2.0) Sodium Level 136 MMOL/L (136-145) Potassium Level 3.1 MMOL/L (3.5-5.1) L Chloride Level 101 MMOL/L (98-107) Carbon Dioxide Level 21 MMOL/L (21-32) Blood Urea Nitrogen 103 mg/dL (7-18) H Creatinine 4.7 MG/DL (0.55-1.30) H Estimat Glomerular Filtration Rate 12.1 mL/min (>60) Glucose Level 212 MG/DL (74-106) H Calcium Level 10.1 MG/DL (8.5-10.1) Test 11/14/19 05:20 POC Whole Blood Glucose 197 MG/DL (74-106) H Current Medications Medications (Trade) Dose Ordered Sig/Leonel Route PRN Reason Start Time Stop Time Status Last Admin Dose Admin Acetaminophen (Tylenol) 650 mg Q6H PRN GT Temp >100.5 10/21/19 20:45 11/20/19 20:44 11/10/19 15:03 Ceftriaxone Sodium 1 gm/ Sodium Chloride 55 ml @ 110 mls/hr Q24H IVPB 11/12/19 16:00 11/19/19 15:59 11/13/19 15:26 Chlorhexidine Gluconate (Felipa-Hex 2%) 1 applic DAILY@2000 TOPIC 09/12/19 20:00 12/11/19 19:59 11/13/19 20:00 Clonidine HCl (Catapres Tab) 0.1 mg Q4H PRN GT For High Blood Pressure 09/09/19 12:30 12/08/19 05:29 09/15/19 04:10 Epoetin Andreas (Epoetin Andreas(ESRD on dialysis)) 8,000 unit WED-WED-WED SUBQ 10/25/19 21:00 01/23/20 20:59 11/13/19 21:08 Famotidine (Pepcid) 20 mg DAILY GT 08/30/19 09:00 11/28/19 08:59 11/14/19 09:34 Heparin Sodium (Porcine) (Heparin 5000 units/ml) 5,000 units EVERY 12 HOURS SUBQ 11/02/19 09:00 12/17/19 08:59 11/14/19 09:36 Heparin Sodium (Porcine) (Heparin Sod 1000 units/ml 10ml) 2,000 unit ONCE PRN IV dialysis 11/14/19 08:00 11/14/19 23:59 Heparin Sodium (Porcine) (Heparin) 1,000 unit POSTHD PRN INJ Dialysis Use 11/14/19 08:00 11/14/19 23:59 Insulin Aspart (NovoLOG) Q6HR SUBQ 11/08/19 00:00 02/06/20 00:00 11/14/19 05:31 Lactobacillus Acidophilus (Culturelle) 1 tab EVERY 12 HOURS GT 10/03/19 21:00 12/13/19 17:59 11/14/19 09:34 Sodium Chloride 500 ml @ 999 mls/hr Q31M PRN IV sbp<90 10/28/19 21:30 11/27/19 21:29 Sodium Chloride 1,000 ml @ 500 mls/hr Q2H PRN IVLG sbp<90 during hd 11/14/19 08:00 11/14/19 23:59 aFrnaz Lyle MD Nov 14, 2019 11:04"
[2019-11-14 12:00] VITALS: BP 134/95
--- NOTE | 2019-11-14 13:33 | Nephrology Progress Note ---
Assessment/Plan Plan ESRD - HD TTS + IVF boluses PRN. Anemia of CKD -TUYET. Subjective Subjective Obtunded. On HD now. Objective Objective Last 24 Hour Vital Signs Date Time Temp Pulse Resp B/P (MAP) Pulse Ox O2 Delivery O2 Flow Rate FiO2 11/14/19 13:08 24 11/14/19 12:00 Mechanical Ventilator 11/14/19 12:00 93 11/14/19 12:00 97.7 92 15 134/95 (108) 100 11/14/19 11:09 71 21 24 11/14/19 08:00 97.9 89 20 149/80 (103) 100 11/14/19 08:00 90 11/14/19 08:00 24 11/14/19 08:00 Mechanical Ventilator 11/14/19 07:24 91 19 24 11/14/19 04:00 24 11/14/19 04:00 97.9 92 21 146/75 (98) 100 11/14/19 04:00 91 11/14/19 04:00 Mechanical Ventilator 11/14/19 03:30 97 14 24 11/14/19 00:00 Mechanical Ventilator 11/14/19 00:00 93 11/14/19 00:00 24 11/14/19 00:00 98.5 93 17 110/69 (83) 100 11/13/19 23:20 77 14 24 11/13/19 20:00 98.1 125 21 125/73 (90) 99 11/13/19 20:00 24 11/13/19 20:00 Mechanical Ventilator 11/13/19 20:00 124 11/13/19 19:30 117 18 24 11/13/19 16:00 24 11/13/19 16:00 92 11/13/19 16:00 98.4 92 18 134/75 (94) 100 11/13/19 16:00 Mechanical Ventilator 11/13/19 15:10 88 17 24 Intake and Output 11/13/19 11/14/19 19:00 07:00 Intake Total 1000 ml 450 ml Balance 1000 ml 450 ml Intake Oral 495 ml Free Water 100 ml Tube Feeding 405 ml 450 ml # Bowel Movements 100 20 Laboratory Tests 11/13/19 16:08: POC Whole Blood Glucose 173H 11/14/19 00:36: POC Whole Blood Glucose [Pending] 11/14/19 03:24: White Blood Count 17.4H, Red Blood Count 4.34L, Hemoglobin 10.0L, Hematocrit 32.6L, Mean Corpuscular Volume 75L, Mean Corpuscular Hemoglobin 23.0L, Mean Corpuscular Hemoglobin Concent 30.6L, Red Cell Distribution Width 18.8H, Platelet Count 570H, Mean Platelet Volume 6.6, Neutrophils (%) (Auto) 76.4H, Lymphocytes (%) (Auto) 12.6L, Monocytes (%) (Auto) 4.8, Eosinophils (%) (Auto) 5.1H, Basophils (%) (Auto) 1.2, Sodium Level 136, Potassium Level 3.1L, Chloride Level 101, Carbon Dioxide Level 21, Blood Urea Nitrogen 103H, Creatinine 4.7H, Estimat Glomerular Filtration Rate 12.1, Glucose Level 212H, Calcium Level 10.1 11/14/19 05:20: POC Whole Blood Glucose 197H 11/14/19 12:05: POC Whole Blood Glucose 169H Height (Feet): 5 Height (Inches): 10.00 Weight (Pounds): 123 Objective Clammy, diaphoretic CV RR Trach clean Lungs CTA Perma Cath RIJ. Abd SNT. BS + E No CCE Barely responsive Erica Pichardo MD Nov 14, 2019 13:33
--- NOTE | 2019-11-14 14:25 | Surgery Progress Note ---
Surgery Progress Note Subjective Procedure Performed Right femoral temporary hemodialysis catheter removal Additional Comments no acute events family at bedside all questions answered Objective Last 24 Hour Vital Signs Date Time Temp Pulse Resp B/P (MAP) Pulse Ox O2 Delivery O2 Flow Rate FiO2 11/14/19 13:08 24 11/14/19 12:00 Mechanical Ventilator 11/14/19 12:00 93 11/14/19 12:00 97.7 92 15 134/95 (108) 100 11/14/19 11:09 71 21 24 11/14/19 08:00 97.9 89 20 149/80 (103) 100 11/14/19 08:00 90 11/14/19 08:00 24 11/14/19 08:00 Mechanical Ventilator 11/14/19 07:24 91 19 24 11/14/19 04:00 24 11/14/19 04:00 97.9 92 21 146/75 (98) 100 11/14/19 04:00 91 11/14/19 04:00 Mechanical Ventilator 11/14/19 03:30 97 14 24 11/14/19 00:00 Mechanical Ventilator 11/14/19 00:00 93 11/14/19 00:00 24 11/14/19 00:00 98.5 93 17 110/69 (83) 100 11/13/19 23:20 77 14 24 11/13/19 20:00 98.1 125 21 125/73 (90) 99 11/13/19 20:00 24 11/13/19 20:00 Mechanical Ventilator 11/13/19 20:00 124 11/13/19 19:30 117 18 24 11/13/19 16:00 24 11/13/19 16:00 92 11/13/19 16:00 98.4 92 18 134/75 (94) 100 11/13/19 16:00 Mechanical Ventilator 11/13/19 15:10 88 17 24 I&O Intake and Output 11/13/19 11/14/19 19:00 07:00 Intake Total 1000 ml 450 ml Balance 1000 ml 450 ml Intake Oral 495 ml Free Water 100 ml Tube Feeding 405 ml 450 ml # Bowel Movements 100 20 Dressing: other Wound: other Cardiovascular: RSR Respiratory: decreased breath sounds Abdomen: soft, non-tender, present bowel sounds Extremities: no edema, no tenderness, no cyanosis Laboratory Tests Test 11/13/19 16:08 11/14/19 00:36 11/14/19 03:24 11/14/19 05:20 POC Whole Blood Glucose 173 MG/DL (74-106) H Pending 197 MG/DL (74-106) H White Blood Count 17.4 K/UL (4.8-10.8) H Red Blood Count 4.34 M/UL (4.70-6.10) L Hemoglobin 10.0 G/DL (14.2-18.0) L Hematocrit 32.6 % (42.0-52.0) L Mean Corpuscular Volume 75 FL (80-99) L Mean Corpuscular Hemoglobin 23.0 PG (27.0-31.0) L Mean Corpuscular Hemoglobin Concent 30.6 G/DL (32.0-36.0) L Red Cell Distribution Width 18.8 % (11.6-14.8) H Platelet Count 570 K/UL (150-450) H Mean Platelet Volume 6.6 FL (6.5-10.1) Neutrophils (%) (Auto) 76.4 % (45.0-75.0) H Lymphocytes (%) (Auto) 12.6 % (20.0-45.0) L Monocytes (%) (Auto) 4.8 % (1.0-10.0) Eosinophils (%) (Auto) 5.1 % (0.0-3.0) H Basophils (%) (Auto) 1.2 % (0.0-2.0) Sodium Level 136 MMOL/L (136-145) Potassium Level 3.1 MMOL/L (3.5-5.1) L Chloride Level 101 MMOL/L (98-107) Carbon Dioxide Level 21 MMOL/L (21-32) Blood Urea Nitrogen 103 mg/dL (7-18) H Creatinine 4.7 MG/DL (0.55-1.30) H Estimat Glomerular Filtration Rate 12.1 mL/min (>60) Glucose Level 212 MG/DL (74-106) H Calcium Level 10.1 MG/DL (8.5-10.1) Test 11/14/19 12:05 POC Whole Blood Glucose 169 MG/DL (74-106) H Plan Problems: (1) Anemia (2) Hyponatremia (3) Leukocytosis Assessment & Plan: Tracheostomy, left chest pacemaker are again demonstrated. There is bilateral interstitial and airspace disease and bilateral pleural fluid again demonstrated. This appears more severe than on the prior study. Bilateral interstitial and airspace infiltrates versus edema. Bilateral pleural effusions Leukocytosis, anemia, tachycardia, abnormal labs. Wound evaluated and likely etiology of patient's sepsis. Leukocytosis etiology work-up antibiotics per infectious disease Appreciate nephrology input transfuse with dialysis We will follow with recommendations thank you allowing participation's care plan HD access temp HD discussed with medical teams line okay HD as per renal persistent leukocytosis flow cyto noted improving trending down right fem line removed wbc fluctuating h/h stable lft's elevated There is a right pleural effusion Gallbladder demonstrates tiny wall adherent nonmobile echogenic foci, some possible mural calcifications, and comet tail artifact in the anterior wall. Patient unable to report sonographic Kent's sign. Common bile duct measures 4 mm in diameter. No intrahepatic biliary ductal dilatation. Liver demonstrates normal echogenicity, no focal abnormality. There is some surface nodularity. Portal vein and hepatic veins are patent. Pancreas is incompletely visualized due to overlying bowel gas, visualized portions are unremarkable. Spleen is unremarkable. Left kidney measures 8.7 cm in length. Right kidney measures 8.9 cm length. Both kidneys demonstrate increased echogenicity. There is no hydronephrosis. No focal abnormality . Abdominal aorta is partially obscured by bowel gas, visualized portions are non-aneurysmal . A gastrostomy is noted Impression: Tiny wall adherent nonmobile gallbladder echogenic foci, may reflect wall adherent calculi, small polyps, and/or pleural calcifications. Anterior wall comet tail artifact suggests foci of adenomyomatosis. Normal caliber common bile duct Possible hepatic surface nodularity, could indicate cirrhotic change Echogenic kidneys, consistent with medical renal disease. No hydronephrosis Right pleural effusion Gastrostomy Note nonvisualization of portions of the pancreas and abdominal aorta HIDA NEGATIVE trend labs (4) Ventilator dependent (5) Right lower lobe pneumonia (6) Hypokalemia (7) Hyperkalemia (8) Anasarca (9) Decubitus skin ulcer Assessment & Plan: pt presented on admission with generalized edemae.Skin assessed under tracheostomy and no areas of concerns noted. GT Insertion is marginally erythematous with small amt slough at stoma. Unstageable Pressure Injury R elbow. Base of wound is 100% yellow slough,Borders are erythematous. Wound oozing small amt haemopurulent exudate.Darker skin tone without elevation in skin temp or erythema periwound. Pt's penis and scrotum are grossly edematous and enlarged and weeping serous exudate from numerous sites both from penis and scrotum. Two small open wounds noted at base of at base of shaft of penis ,and contreras aspect of scrotum. Both wounds oozing large amt sanguineous and serosanguineous exudate. Multiple open wounds with Biofilm at base of each wounds noted to contreras/lateral,inferior and posterior aspects of scrotum. These wounds noted to be oozing moderate amts of serosanguineous exudate. Hypertrophic scar with scattered areas of hyp erpigmentation noted to Sacrum. DTPI noted to L Buttocks (L)7cm x (W)9cm. Base of wound is purple and indurated.Darker skin tone without erythema,induration or fluctuance R and L ischial tuberosities. Both heels are boggy with non-blanchable erythema. potential decline given chronic illness Tx.Plan: Cleanse wound R elbow with Saline. Apply TheraHoney, Apply Moisture Barrier Past e periwound. Cover with Optifoam drsg.Change Daily and prn. Wash GT site with soap and water.Pat dry. Apply Zinc Oxide Paste to GT site Daily. Leave Open to Air. Apply Zinc Oxide Paste to entire Scrotum, Place ABD pads to R and L lateral, and posterior aspects of scrotum TWICE daily. Apply Cavilon Skin Barrier to malleoli and both Heels. Cover each site with Optifoam drsgs. Change every 7 days and prn. Reposition at least every 2hours or as tolerated. Off-load heels with Pillows. APM/BECCA Mattress overlay. (10) Malnutrition Assessment & Plan: DAILY ESTIMATED NEEDS: Needs based on Renal, critical care, wound/ 61kg 22-30 kcals/kg 0536-0548 total kcals 1.25-2 g protein/kg 76-122 g total protein Fluid per MD, now on HD NUTRITION DIAGNOSIS: * Swallowing difficulty R/T respiratory failure, dysphagia as evidenced by trach/vent dep, PEG dep * Increased kcal/prot needs R/T wound healing as evidenced by admitted w/ multiple pressure injuries including full thickness wounds at junction of Shaft of penis, dorsal scrotum, R elbow, and DTPI @ L buttocks. CURRENT TF:Osmolite 1.2 @ 60ml/hr x 20 hrs + Garo BID ENTERAL NUTRITION RECOMMENDATIONS: Vital AF 1.2 @ 60ml/hr x 20 hrs to provide 1200ml, 1440kcal, 90g prot, 973ml free water * Rec 20 hr run time for GI rest. -> W/ improved GI status, rec Vital AF 1.2, an elemental and carb controlled TF -> monitor lytes and renal fxn closely, monitor need for renal TF -> TF @ goal will provide 1642mg K and 2025mg Phos -> HOB over 30 degrees/ water flush per MD -------- Trial of Osmolite 1.2 continue for now- Goal of 60ml/hr for 20 hrs (4 hrs bowel rest) to provide 1200ml, 1440 kcal, 67g pro, 984ml free H2O, -> Rec to add prosource 1 pack daily (11g pro) to better meet est pro needs. -> Monitor BG, K closely. Pt would require increased insulin coverage as TF at goal would provide 56g more carbs per day. ADDITIONAL RECOMMENDATIONS: * Per SNF: HT=63" DG=805 lbs (vs EMR wt of 166lbs) -> obtain re-calibrated bedscale wt, rec daily wt monitoring * Wound healing: con't Nephrovite + Garo BID/ Vit C dosing per Nephro * Monitor renal fxn and lytes closely w/ non-renal TF ->K low, phos wnl;updated mag level; rec increased insulin w/ BG labs * Daily wts w/ drop to 118-20 lbs, rec to recalibrate for accurate CBW * Consider DC Miralax if medically appropriate: +rectal tube (11) Uremia (12) CKD (chronic kidney disease) stage 5, GFR less than 15 ml/min (13) Colon distention Assessment & Plan: discussed with GI likely functional as having lots of loose bm rectal tube kub f/u s/p colonoscopy - findings reviewed with GI improved cont diet as tolerated repeat KUB Marked distention of the sigmoid colon. 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 No evidence of bowel wall thickening or pneumatosis 12 mm focus of contrast enhancement in the right pectineus muscle. While nonspecific in appearance, appearance raises concern for a possible pseudoaneurysm. Ill- defined thickening of the pectus medius muscle could indicate some intramuscular hemorrhage. The above findings were phoned to Dr. Urias at the time of interpretation Large bilateral pleural effusions Hazy pulmonary parenchymal opacities as well as dense consolidative opacities most likely represent pulmonary edema, but could represent pneumonia Evidence of anasarca elsewhere, with generalized edema of the subcutaneous fat Bladder wall thickening, raises concern for cystitis. Avalos catheter in place Colonic diverticulosis. No evidence of diverticulitis. Tracheostomy Pacemaker Gastrostomy Gastrostomy again demonstrated in satisfactory position. The stomach is otherwise unremarkable. The distal esophagus and duodenum are unremarkable. Ingested contrast reaches the colon. No small bowel distention or small bowel wall thickening. Interim placement of a rectal tube. There are a few colonic diverticula. No definite evidence of acute diverticulitis. The appendix is prominent in caliber, as previously No free or loculated intraperitoneal gas or fluid is evident. Again demonstrated is marked gaseous distention of the sigmoid colon which measures up to 12.6 cm in diameter, with the proximal aspect located laterally to the distal aspect, and caliber transition in the mesenteric root of both entry points. However, there is stool within the proximal portion which appears to be at least partially contrast opacified, and no definite persisting of the vascular pedicle demonstrated. The liver, gallbladder, bile ducts, pancreas, spleen, adrenals, kidneys are unremarkable. There are accessory splenules demonstrated. No retroperitoneal or mesenteric mass or adenopathy. No pelvic mass or adenopathy. The prostate is enlarged and protrudes into the inferior bladder. The bladder is thick-walled. Previously demonstrated Avalos catheter has been removed. Again demonstrated is a large right pleural effusion and a moderate to large left pleural effusion. Again demonstrated are compressive atelectatic changes of significant portions of both lower lobes. Pacemaker wires are seen within the heart. Previously demonstrated high attenuation focus within the right pectineus muscle is not evident. However, there is a low-attenuation area which measures 2 cm diameter centrally which is not evident previously. There is diffuse edema of the subcutaneous fat. This is less severe than was demonstrated previously. There are degenerative proliferative changes of the lumbar spine. Impression: Abnormal configuration of the sigmoid colon, with marked distention of a sigmoid, inversion of the relationships of the proximal and descending colon, and evidence of immediately apposed transition point raises concern for sigmoid volvulus. However, similarity to the prior exam, presence of what appears to be contrast opacified stool within the dilated segment, and lack of evidence of twisting of the vascular pedicle raises the possibility that this is baseline for this patient or possibly dysfunctional in nature. Correlate with clinical findings Enlarged prostate with protrusion into the bladder floor. Bladder neoplasm not completely excludable as a result Thick-walled bladder, may indicate cystitis or be due to chronic bladder lumen obstruction related to the above Abnormalities right pectineus muscle, with a 2 cm central low attenuation area. Note that previous exam have a high attenuation focus suspicious for a small pseudoaneurysm. 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 Colonic diverticulosis. No evidence of diverticulitis Gastrostomy in good position Rectal tube in good position Large right and moderate to large left pleural effusions. Resultant compressive pulmonary atelectatic changes or graft edema subcutaneous fat, less severe than was demonstrated on prior 08/17/2019 exam. Jonathan Urias Nov 14, 2019 14:25
[2019-11-14] MEDS: cefTRIAXone 1 GM in NS 55 ML IVPB SCH (15:38)
--- NOTE | 2019-11-14 15:56 | NUR ---
NURSE NOTES: Received on order from Dr Lyle to colonized kpc, vre, aci, mrsa. Faxed to [phone].
[2019-11-14 16:27] VITALS: BP 111/55
--- NOTE | 2019-11-14 17:30 | NUR ---
*-*DISCHARGE PLANNING*-* PATIENT HAS BEEN REFERRED TO: [facility] P: [phone]
--- NOTE | 2019-11-14 17:42 | NUR ---
*-*DISCHARGE PLANNING*-* PATIENT HAS BEEN REFERRED TO: [facility] P: [phone] S/W IRIS, WILL CALL BACK TOMORROW 11/15/2019 TO GIVE ISO ROOM.
[2019-11-14] MEDS ORDERED: NS 275ml ONE (18:12)
--- NOTE | 2019-11-14 19:10 | NUR ---
NURSE HAND-OFF REPORT: Important Events on Shift:none Patient Status: full code Diet: nepro at 45 cc Pending Orders: none Pending Results/Labs:none Pending MD notification:none Latest Vital Signs: Temperature 98.1 , Pulse 99 , B/P 111 /55 , Respiratory Rate 17 , O2 SAT 100 , Mechanical Ventilator, O2 Flow Rate 15.0 . Vital Sign Comment: none EKG Rhythm: V-Paced Rhythm change?: N MD Notified?: N - MD Response: none Latest Delacruz Fall Score: 70 Fall Risk: High Risk Safety Measures: Call light Within Reach, Bed Alarm Zone 2, Side Rails Side Rails x3, Bed position Low and Locked. Fall Precautions: Yellow Socks Door Sign Patient Fall Education Report given to Mohamud Gordon.
--- NOTE | 2019-11-14 19:15 | NUR ---
NURSE NOTES: Received report from [facility]. Pt is seen lyingi n bed in side lying position on left side. Pt is obtunded and non verbal. Pt has no signs of distress noted. Pt is attached to vent with appropriate settings. No signs of pain noted. pt has rectal tube attached patent and intact. For discharge tomorrow AM as per endorsement. Pt is S/P Diaysis 2L out today as oer endorsement. Bed in lowest position. Call light within reach. Continue to plan of care.
[2019-11-14 20:00] VITALS: BP 130/60
--- NOTE | 2019-11-14 20:02 | General Progress Note ---
Subjective Allergies: Coded Allergies: No Known Allergies (Unverified , 06/10/19) Subjective above noted NAD on TF non communicative Objective Last 24 Hour Vital Signs Date Time Temp Pulse Resp B/P (MAP) Pulse Ox O2 Delivery O2 Flow Rate FiO2 11/14/19 19:01 104 17 24 11/14/19 16:28 24 11/14/19 16:27 98.1 99 17 111/55 (73) 100 11/14/19 16:26 Mechanical Ventilator 11/14/19 16:00 97 11/14/19 15:09 98 16 24 11/14/19 13:08 24 11/14/19 12:00 Mechanical Ventilator 11/14/19 12:00 93 11/14/19 12:00 97.7 92 15 134/95 (108) 100 11/14/19 11:09 71 21 24 11/14/19 08:00 97.9 89 20 149/80 (103) 100 11/14/19 08:00 90 11/14/19 08:00 24 11/14/19 08:00 Mechanical Ventilator 11/14/19 07:24 91 19 24 11/14/19 04:00 24 11/14/19 04:00 97.9 92 21 146/75 (98) 100 11/14/19 04:00 91 11/14/19 04:00 Mechanical Ventilator 11/14/19 03:30 97 14 24 11/14/19 00:00 Mechanical Ventilator 11/14/19 00:00 93 11/14/19 00:00 24 11/14/19 00:00 98.5 93 17 110/69 (83) 100 11/13/19 23:20 77 14 24 Intake and Output 11/13/19 11/14/19 19:00 07:00 Intake Total 1000 ml 450 ml Balance 1000 ml 450 ml Intake Oral 495 ml Free Water 100 ml Tube Feeding 405 ml 450 ml # Bowel Movements 100 20 Laboratory Tests 11/14/19 00:36: POC Whole Blood Glucose [Pending] 11/14/19 03:24: White Blood Count 17.4H, Red Blood Count 4.34L, Hemoglobin 10.0L, Hematocrit 32.6L, Mean Corpuscular Volume 75L, Mean Corpuscular Hemoglobin 23.0L, Mean Corpuscular Hemoglobin Concent 30.6L, Red Cell Distribution Width 18.8H, Platelet Count 570H, Mean Platelet Volume 6.6, Neutrophils (%) (Auto) 76.4H, Lymphocytes (%) (Auto) 12.6L, Monocytes (%) (Auto) 4.8, Eosinophils (%) (Auto) 5.1H, Basophils (%) (Auto) 1.2, Sodium Level 136, Potassium Level 3.1L, Chloride Level 101, Carbon Dioxide Level 21, Blood Urea Nitrogen 103H, Creatinine 4.7H, Estimat Glomerular Filtration Rate 12.1, Glucose Level 212H, Calcium Level 10.1 11/14/19 05:20: POC Whole Blood Glucose 197H 11/14/19 12:05: POC Whole Blood Glucose 169H 11/14/19 16:38: POC Whole Blood Glucose 162H Height (Feet): 5 Height (Inches): 10.00 Weight (Pounds): 123 Objective Debilitated AA man NCAT (+) trach coarse BS RR, tachy abd less distended, anasarca, (+) GT, (+) rectal tube ext contracted Assessment/Plan Assessment/Plan: Assessment - abdominal distention, due to colonic dysmotility, - colonoscopy negative to hepatic flexure - diarrhea - presumed TF related - abnormal LFT - ? etiology --> HIDA negative and CT negative - Anemia - leukocytosis - stool OB (+) - EGD --> gastritis - Renal failure - Anasarca - resp failure, trach - b/l pleural effusions - dysphagia, GT - encephalopathy, contracted - poor px Recommendations - continue TF - check hepatitis markers - negative - rectal tube - roll side to side as feasible (hard due to severe contractions) - Elevate HOB - f/u labs - PPI - supportive care Ronny Mustafa MD Nov 14, 2019 20:02
[2019-11-14] MEDS: Dyna-Hex 2% Top Sol 2oz TOPIC SCH (20:15)
[2019-11-15] VITALS: BP 123/70
[2019-11-15] MEDS: NovoLOG Insulin Flexpen SUBQ SCH ×3 (00:18→12:16)
--- NOTE | 2019-11-15 00:54 | NUR ---
NURSE NOTES: Seen pt lying in bed comfortably, no facial grimacing, Pt was repositioned every 2 hrs. pt was cleaned and sponge bath given. No signs of respiratory distress. Continue to plan of care.
[2019-11-15 03:48] LABS: HEMATOCRIT 33.4 % (42.0-52.0); HEMOGLOBIN 10.3 G/DL (14.2-18.0); LYMPHOCYTES % (AUTO) 12.9 % (20.0-45.0); MEAN CORPUSCULAR VOLUME 75 FL (80-99); NEUTROPHILS % (AUTO) 75.2 % (45.0-75.0); PLATELET COUNT 595 K/UL (150-450); RED BLOOD COUNT 4.48 M/UL (4.70-6.10); RED CELL DISTRIBUTION WIDTH 19.1 % (11.6-14.8)
[2019-11-15 04:00] VITALS: BP 105/58
--- NOTE | 2019-11-15 06:48 | Hematology/Onc Progress Note ---
Assessment/Plan Assessment/Plan Assessment/recs # Anemia due to chronic disease/kidney disease as well, gi bleed + occult + noted --> was on iron in the past, now on hold --> has been started on Epogen sq --> as per renal care --> egd done and shows gastritis --> on ppi --> egd showed gastritis, colo recently done --> hgb 9-->8. 7-->7.6-->9.2-->8.9-->9.2->9.3-->8.8->9.9-->9.2-->8.1-->8.7-->7.9-->8.6-->8.9--> 8.2->9-->9.3->8.9-->9.5-->10.6->9.2-->10->8.9--> 8.3-->8.9-->9.9-->9.3-->9-->9.3->11-->8.6->8.7>9-->8.4-->9.1-->8.8>10.6 --> spep ordered->wnl # Leukocytosis - with multiple infections, VRE UTI, flow is negative --> wbc trend 33-->28-->25->23->22->23->24->17.3-->17-->14->16-->15.6--> 14-->14->13->19->18->17->22->22->19->17-->18->20-->15-->14->16-->14-->17->18-->1 7->15-->16-->17->28->19-->21-->19-->23->15-->19 --> + blood cultures with coag neg staph likely contaminated --> as per id recs --> has ordered a flow cytometry (with pathology) --> does show increased nK cell activity --> JOURDAN 2 and bcr-abl labs ordered (these are send outs)->negative --> plt 585-->613-->649-->669->663-->529-->506-->620-->720 --> on abx, linezolid and zosyn--> zosyn-->gent-->off-->vanc/zosyn -->cefepime/colistin-->cefepime/vanc-->ctx # Elevated ddimer on admission --> duplex lower legs neg for dvt # Respiratory failure --> per pulm, s/p trach --> COVID 19 test negative x 2 # Hyperlipidemia --> statin po # Dysphagia s/p gtube with nepro --> per gi # ESRD with r fem julito --> hd as per renal # Dvt ppx heparin sq Appreciate consultation and matt Rn Subjective Genitourinary: Denies: no symptoms, burning, discharge, frequency, flank pain, hematuria, incontinence, pain, urgency, other Neurologic/Psychiatric: Denies: no symptoms, anxiety, depressed, emotional problems, headache, numbness, paresthesia, pre-existing deficit, seizure, tingling, tremors, weakness, other Allergies: Coded Allergies: No Known Allergies (Unverified , 06/10/19) All Systems: reviewed and negative except above Subjective 08/15 meds noted, no bleeding, hgb 8.8, wbc 28, path flow pending 08/16 flow pending dw pathologist, results pending, wbc 25, hgb 9 08/17 labs reviewed, meds reviewed, meds noted, no night sweats 08/19 remains obtunded, on vent/trach, no bleeding wbc 21.7 08/20 labs have been reviewed, no bleeding, wbc still elev, path reviewed 08/21 labs are noted, no bleeding, on vent, wbc better 08/22 labs noted, no bleeding, meds reviewed, wbc 24 hgb 7.6 08/23 vent, off abx, c diff negative, h/h stable 08/24 labs reviewed, on abx, wbc 17, hgb 8.9, no hemolysis 08/26 reviewed flow and is negative for leukemia, matt rn 08/27 meds reviewed, no night sweats, matt rn, no major bleeding 08/28 meds reivewed, labs noted 08/29 wbc is stable, approx 15, hgb 8.8, no hemolysis 08/30 labs are noted, is for colo today, hgb 9.9 08/31 right fem julito in place, unchanged, hgb 9.2, gi aware 09/01 labs noted, hgb 8.8, plt >600, no bleeding 09/02 labs noted, no bleeding, with elev wbc still, no new changes 09/03 meds are noted, no bleeding, labs reviewed hgb 8.6 09/04 no major events, hd as per renal, abx, no bleeding hgb low 09/05 labs are noted, no bleeding, meds have been reviewed 09/06 no new labs no hemolysis, cbc is noted, no bleeding 09/07 meds reviewed, no bleeding, matt rn, permacath functioning well 09/09 meds reviewed, wbc still elevated, as per id recs, cbc noted 09/10 is obtunded, with gutbe in place, labs reviewed 09/11 obtunded, as per id, observe now off abx, labs noted, wbc 19 09/12 cbc is pending, remains on epogen, also off abx 09/13 labs reviewed, no bleeding, elev wbc, no night sweats 09/14 meds noted, no bleeding, wbc 19, hgb 9.5, no night sweats 09/21 obtunded, remains on vent, labs noted, no bleeding, hgb 8.9 09/22 obtunded, labs noted, no bleeding, on vent, unchanged 09/23 unchanges, wbc remains elevated 20k, on abx, on vent 09/24 labs have been reviewed, no bleeding, wbc 15, may need abx 09/25 formula gtube changed, labs noted, remains obtunded, hgb 9.3 09/26 labs have been reviewed, no bleeding, matt rn, no night sweats 09/27 meds reviewed, no bleeding, wbc 14, on abx, remains obtunded 09/28 remains obtunded, no bleeding, wbc better, hgb 8.9, no hemolysis, plt 506 09/30 on colisitn, wbc elevated, cefepime added per id, hgb stable 10/01 labs reviewed, no bleeding, matt rn, no major events noted, wbc 14, hgb 10.6 10/02 labs have been noted, hgb 9.2, wbc 17, on abx, matt rn 10/03 continue on tube feeds, no bleeding, on vent, wbc remains elevated 10/04 remains ibtunded, is on a mechanical ventilator with tube feeds noted 10/05 labs are noted, hgb 8.6, wbc remains elevated, have ordered for spep 10/07 obtunded on vent, with gtube feeds, labs reviewed, matt rn 10/08 labs are noted, on vent/trach, hgb 10.2, remains obtunded 10/09 labns noted, wbc 15, hgb 8.9, remains altered, on tfs 10/10 labs noted, holding tube feeds, matt rn, hg stable 8.3 currently 10/11 remains on tfs, supportive care, labs noted, no bleeding 10/12 remains obtunded, hgb 8.9, no hemolysis is seen 10/14 labs reviewed, no bleeding, pending potential hd if rn available 10/15 is on vent, with gtube, labs reviewed, no bleeding, to get hd soon 10/16 remains on vent, matt rn at bedside, wbc 15, abx prn, plt also higher, will monitor 10/17 on vent, continue on tube feeds via gtube, labs improved 10/18 labs noted, remains on vent, and tube feeds, no major changes 10/19 nad, no bleeding, labs reviewed, no night sweats, bp elevated, cards aware 10/21 labs pending, with gtube running, on mec vent, abx off 10/22 labs reviewed, no major changes, wbc 18, plt 791k, on gtube feeds 10/23 labs reviewed, meds noted, on epogen and lovenox sq, obtunded, is nv 9.16 labs are noted, wbc 28, hgb 8.6, no hemolysis is noted 10/27 labs reviewed, on mech vent, on gtube feeds, no bleeding wbc 21 10/28 labs noted, wbc 19, plt remains elevated, hd as per renal Dr. Frank 10/29 obtunded, gt feedings on hold, wbc 19, hgb 9, no bleeding 10/30 labs reviewed, no bleeding, wbc 21, hgb 9, hd as per renal care 10/31 labs are noted, wbc 19, hgb 8.4, on vent, obtunded 11/01 obtunded state, no bleeding, meds reviewed, on heparin started today, matt rn 11/02 nv, trach, no bleeding, wbc has increased likely due to infection 11/03 is off abx, no bleeding, meds noted, no hemolysis seen, wbc 15 11/04 meds noted, no bleeding, matt rn 11/06 no residual, labs reviewed, no night sweats, no hemoptysis 11/07 labs are noted, wbc 18, hgb 9, no hemolysis 11/08 is obtunded, stable, nv, getting hd today in am 11/09 labs reviewed, remains obtunded, cbc has been ordered for today 11/11 labs are noted, wbc 22, hgb 10.6, no hemolysis is noted, on epo 11/12 sleeping, with gtf and vent overnight tolerating well, no issues 11/13 labs are noted, no beeding, wbc 17, on abx, tachy overnight 11/14 labs reviewed, remains on abx, no bleeding, comfortable Objective Objective Current Medications Medications (Trade) Dose Ordered Sig/Leonel Route PRN Reason Start Time Stop Time Status Last Admin Dose Admin Acetaminophen (Tylenol) 650 mg Q6H PRN GT Temp >100.5 10/21/19 20:45 11/20/19 20:44 11/10/19 15:03 Ceftriaxone Sodium 1 gm/ Sodium Chloride 55 ml @ 110 mls/hr Q24H IVPB 11/12/19 16:00 11/19/19 15:59 11/14/19 15:38 Chlorhexidine Gluconate (Felipa-Hex 2%) 1 applic DAILY@2000 TOPIC 09/12/19 20:00 12/11/19 19:59 11/14/19 20:15 Clonidine HCl (Catapres Tab) 0.1 mg Q4H PRN GT For High Blood Pressure 09/09/19 12:30 12/08/19 05:29 09/15/19 04:10 Epoetin Andreas (Epoetin Andreas(ESRD on dialysis)) 8,000 unit WED-WED-WED SUBQ 10/25/19 21:00 01/23/20 20:59 11/13/19 21:08 Famotidine (Pepcid) 20 mg DAILY GT 08/30/19 09:00 11/28/19 08:59 11/14/19 09:34 Heparin Sodium (Porcine) (Heparin 5000 units/ml) 5,000 units EVERY 12 HOURS SUBQ 11/02/19 09:00 12/17/19 08:59 11/14/19 20:15 Insulin Aspart (NovoLOG) Q6HR SUBQ 11/08/19 00:00 02/06/20 00:00 11/15/19 05:31 Lactobacillus Acidophilus (Culturelle) 1 tab EVERY 12 HOURS GT 10/03/19 21:00 12/13/19 17:59 11/14/19 20:15 Sodium Chloride 500 ml @ 999 mls/hr Q31M PRN IV sbp<90 10/28/19 21:30 11/27/19 21:29 Last 24 Hour Vital Signs Date Time Temp Pulse Resp B/P (MAP) Pulse Ox O2 Delivery O2 Flow Rate FiO2 11/15/19 04:00 24 11/15/19 04:00 116 11/15/19 04:00 98.2 110 20 105/58 (74) 100 11/15/19 04:00 Mechanical Ventilator 11/15/19 03:00 118 19 24 11/15/19 00:00 98.6 115 20 123/70 (87) 100 11/15/19 00:00 118 11/15/19 00:00 Mechanical Ventilator 11/15/19 00:00 24 11/14/19 23:09 118 19 24 11/14/19 20:00 24 11/14/19 20:00 98.2 103 19 130/60 (83) 100 11/14/19 20:00 Mechanical Ventilator 11/14/19 19:42 99 11/14/19 19:01 104 17 24 11/14/19 16:28 24 11/14/19 16:27 98.1 99 17 111/55 (73) 100 11/14/19 16:26 Mechanical Ventilator 11/14/19 16:00 97 11/14/19 15:09 98 16 24 11/14/19 13:08 24 11/14/19 12:00 Mechanical Ventilator 11/14/19 12:00 93 11/14/19 12:00 97.7 92 15 134/95 (108) 100 11/14/19 11:09 71 21 24 11/14/19 08:00 97.9 89 20 149/80 (103) 100 11/14/19 08:00 90 11/14/19 08:00 24 11/14/19 08:00 Mechanical Ventilator 11/14/19 07:24 91 19 24 11/14/19 04:00 24 11/14/19 04:00 97.9 92 21 146/75 (98) 100 11/14/19 04:00 91 11/14/19 04:00 Mechanical Ventilator 11/14/19 03:30 97 14 24 11/14/19 00:00 Mechanical Ventilator 11/14/19 00:00 93 11/14/19 00:00 24 11/14/19 00:00 98.5 93 17 110/69 (83) 100 11/13/19 23:20 77 14 24 11/13/19 20:00 98.1 125 21 125/73 (90) 99 11/13/19 20:00 24 11/13/19 20:00 Mechanical Ventilator 11/13/19 20:00 124 11/13/19 19:30 117 18 24 11/13/19 16:00 24 11/13/19 16:00 92 11/13/19 16:00 98.4 92 18 134/75 (94) 100 11/13/19 16:00 Mechanical Ventilator 11/13/19 15:10 88 17 24 11/13/19 12:00 98.2 90 17 154/90 (111) 100 11/13/19 12:00 93 11/13/19 12:00 Mechanical Ventilator 11/13/19 12:00 24 11/13/19 11:23 92 16 24 11/13/19 08:00 98.2 94 18 150/79 (102) 100 11/13/19 08:00 Mechanical Ventilator 11/13/19 08:00 94 11/13/19 08:00 24 11/13/19 07:02 93 13 24 Intake and Output 11/14/19 11/15/19 19:00 07:00 Intake Total 705 ml 545 ml Output Total 2000 ml 400 ml Balance -1295 ml 145 ml Free Water 50 ml 50 ml IV Total 55 ml Tube Feeding 450 ml 495 ml Blood Product 150 ml Stool Total 400 ml Hemodialysis UF 2000 ml Labs Test 11/12/19 11:47 11/12/19 17:09 11/13/19 00:35 11/13/19 05:27 POC Whole Blood Glucose 206 MG/DL (74-106) Test 11/13/19 11:44 11/13/19 16:08 11/14/19 00:36 11/14/19 03:24 POC Whole Blood Glucose 150 MG/DL (74-106) 173 MG/DL (74-106) White Blood Count 17.4 K/UL (4.8-10.8) Red Blood Count 4.34 M/UL (4.70-6.10) Hemoglobin 10.0 G/DL (14.2-18.0) Hematocrit 32.6 % (42.0-52.0) Mean Corpuscular Volume 75 FL (80-99) Mean Corpuscular Hemoglobin 23.0 PG (27.0-31.0) Mean Corpuscular Hemoglobin Concent 30.6 G/DL (32.0-36.0) Red Cell Distribution Width 18.8 % (11.6-14.8) Platelet Count 570 K/UL (150-450) Mean Platelet Volume 6.6 FL (6.5-10.1) Neutrophils (%) (Auto) 76.4 % (45.0-75.0) Lymphocytes (%) (Auto) 12.6 % (20.0-45.0) Monocytes (%) (Auto) 4.8 % (1.0-10.0) Eosinophils (%) (Auto) 5.1 % (0.0-3.0) Basophils (%) (Auto) 1.2 % (0.0-2.0) Sodium Level 136 MMOL/L (136-145) Potassium Level 3.1 MMOL/L (3.5-5.1) Chloride Level 101 MMOL/L (98-107) Carbon Dioxide Level 21 MMOL/L (21-32) Blood Urea Nitrogen 103 mg/dL (7-18) Creatinine 4.7 MG/DL (0.55-1.30) Estimat Glomerular Filtration Rate 12.1 mL/min (>60) Glucose Level 212 MG/DL (74-106) Calcium Level 10.1 MG/DL (8.5-10.1) Test 11/14/19 05:20 11/14/19 12:05 11/14/19 16:38 11/15/19 00:15 POC Whole Blood Glucose 197 MG/DL (74-106) 169 MG/DL (74-106) 162 MG/DL (74-106) 229 MG/DL (74-106) Test 11/15/19 02:30 11/15/19 05:27 White Blood Count 17.0 K/UL (4.8-10.8) Red Blood Count 4.48 M/UL (4.70-6.10) Hemoglobin 10.3 G/DL (14.2-18.0) Hematocrit 33.4 % (42.0-52.0) Mean Corpuscular Volume 75 FL (80-99) Mean Corpuscular Hemoglobin 23.0 PG (27.0-31.0) Mean Corpuscular Hemoglobin Concent 30.8 G/DL (32.0-36.0) Red Cell Distribution Width 19.1 % (11.6-14.8) Platelet Count 595 K/UL (150-450) Mean Platelet Volume 7.0 FL (6.5-10.1) Neutrophils (%) (Auto) 75.2 % (45.0-75.0) Lymphocytes (%) (Auto) 12.9 % (20.0-45.0) Monocytes (%) (Auto) 7.0 % (1.0-10.0) Eosinophils (%) (Auto) 4.0 % (0.0-3.0) Basophils (%) (Auto) 1.0 % (0.0-2.0) POC Whole Blood Glucose 224 MG/DL (74-106) Micro Microbiology Date/Time Source Procedure Growth Status 11/14/19 13:59 Nasopharynx SARS-CoV-2 RdRp Gene Assay - Final Complete Height (Feet): 5 Height (Inches): 10.00 Weight (Pounds): 123 Objective Physical Exam General Appearance: nad, Chronically Ill Head: normocephalic Eyes: right eye PERRL - Will not open left eye ENT: moist mucus membranes Neck: other - submandibular mass R, fairly rigid with resistance to rotation to L, tracheotomy Respiratory: decreased breath sounds, crackles, other - pacemaker, vent+ Cardiovascular: regular rate, rhythm, edema - anasarca Gastrointestinal: non tender, distended, other - G tube Genitourinary: other ++rectal tube Musculoskeletal: other - Contractures all extremities Neurologic: sensory intact, motor weakness, responsive Psychiatric: other Skin: Decubitus/Ulcer - Stage III right elbow, stage III left elbow, stage II sacrum, stage III scrotum, warm/dry Fitz Campos MD Nov 15, 2019 06:48
--- NOTE | 2019-11-15 07:18 | NUR ---
NURSE NOTES: Received report TAMICA Rob,patient on ventilator,head 30 degrees,with G tube Clamp,feeding until 10 Am,rectal tube ,on overlay mattress, Right subcalvian hemodialysis access,continue care Addendum: 11/15/19 at 1141 by Yas Luciano RN 1000 patient suctioned thru tracheostomy,oral care done,tracheostomy dressing changed,total care ,sponge bath kennedy by nurses Jason and Maci,turned to side with skin care,skin cream applied
--- NOTE | 2019-11-15 07:18 | NUR ---
NURSE HAND-OFF REPORT: Important Events on Shift: Pt stable. Gt tube off 6am-10am. For d/c in Am pending d/c orders, still in rectal tube- liquidy 200ml, Dialysis out-2L at 11/14/19 Patient Status: Stable Diet: Gtube feeding Pending Orders: none Pending Results/Labs:none Pending MD notificationnone Latest Vital Signs: Temperature 98.2 , Pulse 116 , B/P 105 /58 , Respiratory Rate 20 , O2 SAT 100 , Mechanical Ventilator, O2 Flow Rate 15.0 . Vital Sign Comment: WNL EKG Rhythm: V-Paced Rhythm change?: N MD Notified?: N - MD Response: Latest Delacruz Fall Score: 70 Fall Risk: High Risk Safety Measures: Call light Within Reach, Bed Alarm Zone 2, Side Rails Side Rails x3, Bed position Low and Locked. Fall Precautions: Yellow Socks Door Sign Patient Fall Education Report given to [TAMICA Sorenson].
--- NOTE | 2019-11-15 07:37 | NUR ---
RD ASSESSMENT & RECOMMENDATIONS SEE CARE ACTIVITY FOR COMPLETE ASSESSMENT DAILY ESTIMATED NEEDS: Needs based on Renal, critical care, wound/ 61kg 22-30 kcals/kg 4155-2293 total kcals 1.25-2 g protein/kg 76-122 g total protein Fluid per MD, now on HD NUTRITION DIAGNOSIS: * Swallowing difficulty R/T respiratory failure, dysphagia as evidenced by trach/vent dep, PEG dep * Increased kcal/prot needs R/T wound healing as evidenced by admitted w/ multiple pressure injuries including full thickness wounds at junction of Shaft of penis, dorsal scrotum, R elbow, and DTPI @ L buttocks, and now w/ DTPI wounds @ L medial hallux, L medial foot, BL heel, and partial thickness wound @ sacrum CURRENT TF: NEPRO @45ml/hr x20 hrs + PS x1 ENTERAL NUTRITION RECOMMENDATIONS: Nepro @45ml/hr x20 hrs + Prosource x1 qdaily to provide 900ml, 1620 kcal, 73g + 11g pro, 654 ml free H2O - Maintain Nepro @goal, as tolerated. - Add PROSOURCE qdaily (11g pro) to better meet est pro needs - Flush per MD/ HOB over 30 degrees. -> If tolerating well, would rec increase to goal of 50ml/hr x20 hrs for 1L, 1800 kcal, 81g pro, 727ml free H2O as daily wts are unclear, and continue to trend wt. ADDITIONAL RECOMMENDATIONS: * Per SNF: HT=63" NF=280 lbs (vs EMR wt of 166lbs) -> obtain re-calibrated bedscale wt, rec daily wt monitoring * Wound healing: add Nephrovite + add Garo BID/ Vit C dosing per Nephro * Monitor lytes, replete as needed * Monitor BGs, consider adding long acting insulin for improved BG control * Monitor stool output, need to change TF again-> less output .
[2019-11-15 08:00] VITALS: BP 114/71
[2019-11-15] MEDS: Lactobacillus-GG tablet GT SCH (09:39)
[2019-11-15] MEDS: Heparin 5000 units/ml inj SUBQ SCH (09:42)
--- NOTE | 2019-11-15 09:48 | General Progress Note ---
Subjective ROS Limited/Unobtainable: Yes Allergies: Coded Allergies: No Known Allergies (Unverified , 06/10/19) Subjective remains ill on vent/ no change on HD vitals noted tachy but now better Objective Last 24 Hour Vital Signs Date Time Temp Pulse Resp B/P (MAP) Pulse Ox O2 Delivery O2 Flow Rate FiO2 11/15/19 07:10 117 20 24 11/15/19 04:00 24 11/15/19 04:00 116 11/15/19 04:00 98.2 110 20 105/58 (74) 100 11/15/19 04:00 Mechanical Ventilator 11/15/19 03:00 118 19 24 11/15/19 00:00 98.6 115 20 123/70 (87) 100 11/15/19 00:00 118 11/15/19 00:00 Mechanical Ventilator 11/15/19 00:00 24 11/14/19 23:09 118 19 24 11/14/19 20:00 24 11/14/19 20:00 98.2 103 19 130/60 (83) 100 11/14/19 20:00 Mechanical Ventilator 11/14/19 19:42 99 11/14/19 19:01 104 17 24 11/14/19 16:28 24 11/14/19 16:27 98.1 99 17 111/55 (73) 100 11/14/19 16:26 Mechanical Ventilator 11/14/19 16:00 97 11/14/19 15:09 98 16 24 11/14/19 13:08 24 11/14/19 12:00 Mechanical Ventilator 11/14/19 12:00 93 11/14/19 12:00 97.7 92 15 134/95 (108) 100 11/14/19 11:09 71 21 24 Intake and Output 11/14/19 11/15/19 19:00 07:00 Intake Total 705 ml 500 ml Output Total 2000 ml 400 ml Balance -1295 ml 100 ml Free Water 50 ml 50 ml IV Total 55 ml Tube Feeding 450 ml 450 ml Blood Product 150 ml Stool Total 400 ml Hemodialysis UF 2000 ml Laboratory Tests 11/14/19 12:05: POC Whole Blood Glucose 169H 11/14/19 16:38: POC Whole Blood Glucose 162H 11/15/19 00:15: POC Whole Blood Glucose 229H 11/15/19 02:30: White Blood Count 17.0H, Red Blood Count 4.48L, Hemoglobin 10.3L, Hematocrit 33.4L, Mean Corpuscular Volume 75L, Mean Corpuscular Hemoglobin 23.0L, Mean Corpuscular Hemoglobin Concent 30.8L, Red Cell Distribution Width 19.1H, Platelet Count 595H, Mean Platelet Volume 7.0, Neutrophils (%) (Auto) 75.2H, Lymphocytes (%) (Auto) 12.9L, Monocytes (%) (Auto) 7.0, Eosinophils (%) (Auto) 4.0H, Basophils (%) (Auto) 1.0 11/15/19 05:27: POC Whole Blood Glucose 224H Height (Feet): 5 Height (Inches): 10.00 Weight (Pounds): 123 Objective GENERAL: Ill-appearing male, chronically debilitated. HEENT: Tracheostomy in midline. Questionable fullness in the submandibular region. LUNGS: Coarse breath sounds. reduced breath sounds CARDIAC: S1, S2. Regular rate and rhythm. ABDOMEN: Soft. G-tube. EXTREMITIES: With noted edema. NEUROLOGICAL: Poorly responsive, weak diffusely. Assessment/Plan Assessment/Plan: IMPRESSION: 1. anemia. 2. fevers improved 3. Leukocytosis. 4. hypotension 5. Acute on chronic renal failure. 6. Hyponatremia. 7. Severe protein-calorie malnutrition. 8. Significantly elevated C-reactive protein concerning for infectious etiology. 9. Tracheostomy, G-tube. 10. Ventilator dependence. 11. anasarca 12. Hematuria 13. V pacing 14. hyponatremia 15. transaminitis, HIDA negative PLAN monitor for change antibiotics per ID- wbc improved chronic care; unable to place care noted on vent/ no wean monitor labs monitor vitals- monitor pulse rate dialysis ongoing- prognosis poor for recovery possible transfer impression, plan, and exam edited and reviewed in detail care discussed with Kain Tovar MD Nov 15, 2019 09:48
--- NOTE | 2019-11-15 09:53 | NUR ---
*-*DISCHARGE PLANNING*-* PATIENT HAS BEEN REFERRED TO: [facility] P: [phone] s/w Karen, admission not available yet, will call back
--- NOTE | 2019-11-15 10:00 | NUR ---
NURSE NOTES: resume G tube feeding,no residual
--- NOTE | 2019-11-15 10:25 | NUR ---
*-*DISCHARGE PLANNING*-* PATIENT HAS BEEN REFERRED TO: [facility] P: [phone] S/W LEONARDO, WILL CALL BACK, DOING A ROOM CHANGE TO ACCEPT PATIENT.
--- NOTE | 2019-11-15 10:55 | Infectious Diseases Prog Note ---
"Assessment/Plan Assessment/Plan antibiotics : ceftriaxone A 1. proteus | providencia pneumonia 2. respiratory failure 3. leucocytosis improving 4. COVID 19 test negative x 2 5. renal failure on HD P 1. continue ceftriaxone 6 more days 2. will follow up cultures Subjective ROS Limited/Unobtainable: Yes Allergies: Coded Allergies: No Known Allergies (Unverified , 06/10/19) Objective Last 24 Hour Vital Signs Date Time Temp Pulse Resp B/P (MAP) Pulse Ox O2 Delivery O2 Flow Rate FiO2 11/15/19 08:00 119 11/15/19 07:10 117 20 24 11/15/19 04:00 24 11/15/19 04:00 116 11/15/19 04:00 98.2 110 20 105/58 (74) 100 11/15/19 04:00 Mechanical Ventilator 11/15/19 03:00 118 19 24 11/15/19 00:00 98.6 115 20 123/70 (87) 100 11/15/19 00:00 118 11/15/19 00:00 Mechanical Ventilator 11/15/19 00:00 24 11/14/19 23:09 118 19 24 11/14/19 20:00 24 11/14/19 20:00 98.2 103 19 130/60 (83) 100 11/14/19 20:00 Mechanical Ventilator 11/14/19 19:42 99 11/14/19 19:01 104 17 24 11/14/19 16:28 24 11/14/19 16:27 98.1 99 17 111/55 (73) 100 11/14/19 16:26 Mechanical Ventilator 11/14/19 16:00 97 11/14/19 15:09 98 16 24 11/14/19 13:08 24 11/14/19 12:00 Mechanical Ventilator 11/14/19 12:00 93 11/14/19 12:00 97.7 92 15 134/95 (108) 100 11/14/19 11:09 71 21 24 Height (Feet): 5 Height (Inches): 10.00 Weight (Pounds): 123 HEENT: status post trach Respiratory/Chest: lungs clear Cardiovascular: normal rate, regular rhythm, no gallop/murmur Abdomen: other - GT Extremities: other - left leg edema, right subclavian Microbiology Date/Time Source Procedure Growth Status 11/14/19 13:59 Nasopharynx SARS-CoV-2 RdRp Gene Assay - Final Complete Laboratory Tests Test 11/14/19 12:05 11/14/19 16:38 11/15/19 00:15 11/15/19 02:30 POC Whole Blood Glucose 169 MG/DL (74-106) H 162 MG/DL (74-106) H 229 MG/DL (74-106) H White Blood Count 17.0 K/UL (4.8-10.8) H Red Blood Count 4.48 M/UL (4.70-6.10) L Hemoglobin 10.3 G/DL (14.2-18.0) L Hematocrit 33.4 % (42.0-52.0) L Mean Corpuscular Volume 75 FL (80-99) L Mean Corpuscular Hemoglobin 23.0 PG (27.0-31.0) L Mean Corpuscular Hemoglobin Concent 30.8 G/DL (32.0-36.0) L Red Cell Distribution Width 19.1 % (11.6-14.8) H Platelet Count 595 K/UL (150-450) H Mean Platelet Volume 7.0 FL (6.5-10.1) Neutrophils (%) (Auto) 75.2 % (45.0-75.0) H Lymphocytes (%) (Auto) 12.9 % (20.0-45.0) L Monocytes (%) (Auto) 7.0 % (1.0-10.0) Eosinophils (%) (Auto) 4.0 % (0.0-3.0) H Basophils (%) (Auto) 1.0 % (0.0-2.0) Test 11/15/19 05:27 POC Whole Blood Glucose 224 MG/DL (74-106) H Current Medications Medications (Trade) Dose Ordered Sig/Leonel Route PRN Reason Start Time Stop Time Status Last Admin Dose Admin Acetaminophen (Tylenol) 650 mg Q6H PRN GT Temp >100.5 10/21/19 20:45 11/20/19 20:44 11/10/19 15:03 Ceftriaxone Sodium 1 gm/ Sodium Chloride 55 ml @ 110 mls/hr Q24H IVPB 11/12/19 16:00 11/19/19 15:59 11/14/19 15:38 Chlorhexidine Gluconate (Felipa-Hex 2%) 1 applic DAILY@2000 TOPIC 09/12/19 20:00 12/11/19 19:59 11/14/19 20:15 Clonidine HCl (Catapres Tab) 0.1 mg Q4H PRN GT For High Blood Pressure 09/09/19 12:30 12/08/19 05:29 09/15/19 04:10 Epoetin Andreas (Epoetin Andreas(ESRD on dialysis)) 8,000 unit WED-WED-WED SUBQ 10/25/19 21:00 01/23/20 20:59 11/13/19 21:08 Famotidine (Pepcid) 20 mg DAILY GT 08/30/19 09:00 11/28/19 08:59 11/15/19 09:40 Heparin Sodium (Porcine) (Heparin 5000 units/ml) 5,000 units EVERY 12 HOURS SUBQ 11/02/19 09:00 12/17/19 08:59 11/15/19 09:42 Insulin Aspart (NovoLOG) Q6HR SUBQ 11/08/19 00:00 02/06/20 00:00 11/15/19 05:31 Lactobacillus Acidophilus (Culturelle) 1 tab EVERY 12 HOURS GT 10/03/19 21:00 12/13/19 17:59 11/15/19 09:39 Metoprolol Succinate (Toprol XL) 25 mg DAILY ORAL 11/16/19 09:00 02/14/20 08:59 Sodium Chloride 500 ml @ 999 mls/hr Q31M PRN IV sbp<90 10/28/19 21:30 11/27/19 21:29 Farnaz Lyle MD Nov 15, 2019 10:55"
--- NOTE | 2019-11-15 10:59 | NUR ---
HAND-OFF: Report given to TAMICA العلي,on ventilator,head elevated,G tube feeding,rectal tube,no distress.
[2019-11-15 12:00] VITALS: BP 132/66
--- NOTE | 2019-11-15 12:25 | NUR ---
CASE MANAGEMENT: REVIEW SI: LEUKOCYTOSIS . ESRD on HD . ANEMIA T 97.2 HR 119 RR 20 BP 105/58 SAT 100% MECH VENT FIO2 24 WBC 17.0 H/H 10.3/33.4 GLUCOSE 224 IS: EPOETIN SUBQ MWF HEPARIN SUBQ Q12HR LACTOBACILLUS GT Q12HR CEFTRIAXONE IV Q24HR HD PER RENAL STEP DOWN UNIT STATUS DCP: PLACEMENT PENDING. HEALTH PLAN ASSISTING WITH PLACEMENT
--- NOTE | 2019-11-15 14:38 | Nephrology Progress Note ---
Assessment/Plan Plan ESRD - HD TTS + IVF boluses PRN. Anemia of CKD -TUYET. Subjective Subjective Obtunded. Objective Objective Last 24 Hour Vital Signs Date Time Temp Pulse Resp B/P (MAP) Pulse Ox O2 Delivery O2 Flow Rate FiO2 11/15/19 12:00 24 11/15/19 12:00 97.0 100 19 132/66 (88) 100 11/15/19 12:00 99 11/15/19 12:00 Mechanical Ventilator Mechanical Ventilator Mechanical Ventilator 11/15/19 11:30 97 14 24 11/15/19 08:00 24 11/15/19 08:00 97.2 119 19 114/71 (85) 100 11/15/19 08:00 119 11/15/19 08:00 Mechanical Ventilator Mechanical Ventilator Mechanical Ventilator 11/15/19 07:10 117 20 24 11/15/19 04:00 24 11/15/19 04:00 116 11/15/19 04:00 98.2 110 20 105/58 (74) 100 11/15/19 04:00 Mechanical Ventilator 11/15/19 03:00 118 19 24 11/15/19 00:00 98.6 115 20 123/70 (87) 100 11/15/19 00:00 118 11/15/19 00:00 Mechanical Ventilator 11/15/19 00:00 24 11/14/19 23:09 118 19 24 11/14/19 20:00 24 11/14/19 20:00 98.2 103 19 130/60 (83) 100 11/14/19 20:00 Mechanical Ventilator 11/14/19 19:42 99 11/14/19 19:01 104 17 24 11/14/19 16:28 24 11/14/19 16:27 98.1 99 17 111/55 (73) 100 11/14/19 16:26 Mechanical Ventilator 11/14/19 16:00 97 11/14/19 15:09 98 16 24 Intake and Output 11/14/19 11/15/19 19:00 07:00 Intake Total 705 ml 500 ml Output Total 2000 ml 400 ml Balance -1295 ml 100 ml Free Water 50 ml 50 ml IV Total 55 ml Tube Feeding 450 ml 450 ml Blood Product 150 ml Stool Total 400 ml Hemodialysis UF 2000 ml Laboratory Tests 11/14/19 16:38: POC Whole Blood Glucose 162H 11/15/19 00:15: POC Whole Blood Glucose 229H 11/15/19 02:30: White Blood Count 17.0H, Red Blood Count 4.48L, Hemoglobin 10.3L, Hematocrit 33.4L, Mean Corpuscular Volume 75L, Mean Corpuscular Hemoglobin 23.0L, Mean Corpuscular Hemoglobin Concent 30.8L, Red Cell Distribution Width 19.1H, Platelet Count 595H, Mean Platelet Volume 7.0, Neutrophils (%) (Auto) 75.2H, Lymphocytes (%) (Auto) 12.9L, Monocytes (%) (Auto) 7.0, Eosinophils (%) (Auto) 4.0H, Basophils (%) (Auto) 1.0 11/15/19 05:27: POC Whole Blood Glucose 224H 11/15/19 12:14: POC Whole Blood Glucose [Pending] Height (Feet): 5 Height (Inches): 10.00 Weight (Pounds): 123 Objective Clammy, diaphoretic CV RR Trach clean Lungs CTA Perma Cath RIJ. Abd SNT. BS + E No CCE Barely responsive Erica Pichardo MD Nov 15, 2019 14:38
--- NOTE | 2019-11-15 15:08 | NUR ---
*-*DISCHARGE PLANNED*-* PATIENT HAS BEEN ACCEPTED AND WILL BE DISCHARGED BACK TO: [facility] P: [phone] FOR NURSE REPORT ROOM# 18.[facility] SET FOR 4:30PM S/W ARMOND [id number]
[2019-11-15 16:00] VITALS: BP 140/62
[2019-11-15] MEDS: cefTRIAXone 1 GM in NS 55 ML IVPB SCH (16:56)
--- NOTE | 2019-11-15 17:23 | Surgery Progress Note ---
Surgery Progress Note Subjective Procedure Performed Right femoral temporary hemodialysis catheter removal Additional Comments exam stable afebrile comfortable Objective Last 24 Hour Vital Signs Date Time Temp Pulse Resp B/P (MAP) Pulse Ox O2 Delivery O2 Flow Rate FiO2 11/15/19 16:00 95 11/15/19 15:20 94 15 24 11/15/19 12:00 24 11/15/19 12:00 97.0 100 19 132/66 (88) 100 11/15/19 12:00 99 11/15/19 12:00 Mechanical Ventilator Mechanical Ventilator Mechanical Ventilator 11/15/19 11:30 97 14 24 11/15/19 08:00 24 11/15/19 08:00 97.2 119 19 114/71 (85) 100 11/15/19 08:00 119 11/15/19 08:00 Mechanical Ventilator Mechanical Ventilator Mechanical Ventilator 11/15/19 07:10 117 20 24 11/15/19 04:00 24 11/15/19 04:00 116 11/15/19 04:00 98.2 110 20 105/58 (74) 100 11/15/19 04:00 Mechanical Ventilator 11/15/19 03:00 118 19 24 11/15/19 00:00 98.6 115 20 123/70 (87) 100 11/15/19 00:00 118 11/15/19 00:00 Mechanical Ventilator 11/15/19 00:00 24 11/14/19 23:09 118 19 24 11/14/19 20:00 24 11/14/19 20:00 98.2 103 19 130/60 (83) 100 11/14/19 20:00 Mechanical Ventilator 11/14/19 19:42 99 11/14/19 19:01 104 17 24 I&O Intake and Output 11/14/19 11/15/19 19:00 07:00 Intake Total 705 ml 500 ml Output Total 2000 ml 400 ml Balance -1295 ml 100 ml Free Water 50 ml 50 ml IV Total 55 ml Tube Feeding 450 ml 450 ml Blood Product 150 ml Stool Total 400 ml Hemodialysis UF 2000 ml Cardiovascular: RSR Respiratory: decreased breath sounds Abdomen: non-tender, present bowel sounds Extremities: no tenderness, no cyanosis Laboratory Tests Test 11/15/19 00:15 11/15/19 02:30 11/15/19 05:27 11/15/19 12:14 POC Whole Blood Glucose 229 MG/DL (74-106) H 224 MG/DL (74-106) H Pending White Blood Count 17.0 K/UL (4.8-10.8) H Red Blood Count 4.48 M/UL (4.70-6.10) L Hemoglobin 10.3 G/DL (14.2-18.0) L Hematocrit 33.4 % (42.0-52.0) L Mean Corpuscular Volume 75 FL (80-99) L Mean Corpuscular Hemoglobin 23.0 PG (27.0-31.0) L Mean Corpuscular Hemoglobin Concent 30.8 G/DL (32.0-36.0) L Red Cell Distribution Width 19.1 % (11.6-14.8) H Platelet Count 595 K/UL (150-450) H Mean Platelet Volume 7.0 FL (6.5-10.1) Neutrophils (%) (Auto) 75.2 % (45.0-75.0) H Lymphocytes (%) (Auto) 12.9 % (20.0-45.0) L Monocytes (%) (Auto) 7.0 % (1.0-10.0) Eosinophils (%) (Auto) 4.0 % (0.0-3.0) H Basophils (%) (Auto) 1.0 % (0.0-2.0) Plan Problems: (1) Anemia (2) Hyponatremia (3) Leukocytosis Assessment & Plan: Tracheostomy, left chest pacemaker are again demonstrated. There is bilateral interstitial and airspace disease and bilateral pleural fluid again demonstrated. This appears more severe than on the prior study. Bilateral interstitial and airspace infiltrates versus edema. Bilateral pleural effusions Leukocytosis, anemia, tachycardia, abnormal labs. Wound evaluated and likely etiology of patient's sepsis. Leukocytosis etiology work-up antibiotics per infectious disease Appreciate nephrology input transfuse with dialysis We will follow with recommendations thank you allowing participation's care plan HD access temp HD discussed with medical teams line okay HD as per renal persistent leukocytosis flow cyto noted improving trending down right fem line removed wbc fluctuating h/h stable lft's elevated There is a right pleural effusion Gallbladder demonstrates tiny wall adherent nonmobile echogenic foci, some possible mural calcifications, and comet tail artifact in the anterior wall. Patient unable to report sonographic Kent's sign. Common bile duct measures 4 mm in diameter. No intrahepatic biliary ductal dilatation. Liver demonstrates normal echogenicity, no focal abnormality. There is some surface nodularity. Portal vein and hepatic veins are patent. Pancreas is incompletely visualized due to overlying bowel gas, visualized portions are unremarkable. Spleen is unremarkable. Left kidney measures 8.7 cm in length. Right kidney measures 8.9 cm length. Both kidneys demonstrate increased echogenicity. There is no hydronephrosis. No focal abnormality . Abdominal aorta is partially obscured by bowel gas, visualized portions are non-aneurysmal . A gastrostomy is noted Impression: Tiny wall adherent nonmobile gallbladder echogenic foci, may reflect wall adherent calculi, small polyps, and/or pleural calcifications. Anterior wall comet tail artifact suggests foci of adenomyomatosis. Normal caliber common bile duct Possible hepatic surface nodularity, could indicate cirrhotic change Echogenic kidneys, consistent with medical renal disease. No hydronephrosis Right pleural effusion Gastrostomy Note nonvisualization of portions of the pancreas and abdominal aorta HIDA NEGATIVE trend labs (4) Ventilator dependent (5) Right lower lobe pneumonia (6) Hypokalemia (7) Hyperkalemia (8) Anasarca (9) Decubitus skin ulcer Assessment & Plan: pt presented on admission with generalized edemae.Skin assessed under tracheostomy and no areas of concerns noted. GT Insertion is marginally erythematous with small amt slough at stoma. Unstageable Pressure Injury R elbow. Base of wound is 100% yellow slough,Borders are erythematous. Wound oozing small amt haemopurulent exudate.Darker skin tone without elevation in skin temp or erythema periwound. Pt's penis and scrotum are grossly edematous and enlarged and weeping serous exudate from numerous sites both from penis and scrotum. Two small open wounds noted at base of at base of shaft of penis ,and contreras aspect of scrotum. Both wounds oozing large amt sanguineous and serosanguineous exudate. Multiple open wounds with Biofilm at base of each wounds noted to contreras/lateral,inferior and posterior aspects of scrotum. These wounds noted to be oozing moderate amts of serosanguineous exudate. Hypertrophic scar with scattered areas of hyperpigmentation noted to Sacrum. DTPI noted to L Buttocks (L)7cm x (W)9cm. Base of wound is purple and indurated.Darker skin tone without erythema,deejay ration or fluctuance R and L ischial tuberosities. Both heels are boggy with non-blanchable erythema. potential decline given chronic illness Tx.Plan: Cleanse wound R elbow with Saline. Apply TheraHoney, Apply Moisture Barrier Paste periwound. Cover with Optifoam drsg.Change Daily and prn. Wash GT site with soap and water.Pat dry. Apply Zinc Oxide Paste to GT site D aily. Leave Open to Air. Apply Zinc Oxide Paste to entire Scrotum, Place ABD pads to R and L lateral, and posterior aspects of scrotum TWICE daily. Apply Cavilon Skin Barrier to malleoli and both Heels. Cover each site with Optifoam drsgs. Change every 7 days and prn. Reposition at least every 2hours or as tolerated. Off-load heels with Pillows. APM/BECCA Mattress overlay. (10) Malnutrition Assessment & Plan: DAILY ESTIMATED NEEDS: Needs based on Renal, critical care, wound/ 61kg 22-30 kcals/kg 2611-4132 total kcals 1.25-2 g protein/kg 76-122 g total protein Fluid per MD, now on HD NUTRITION DIAGNOSIS: * Swallowing difficulty R/T respiratory failure, dysphagia as evidenced by trach/vent dep, PEG dep * Increased kcal/prot needs R/T wound healing as evidenced by admitted w/ multiple pressure injuries including full thickness wounds at junction of Shaft of penis, dorsal scrotum, R elbow, and DTPI @ L buttocks. CURRENT TF:Osmolite 1.2 @ 60ml/hr x 20 hrs + Garo BID ENTERAL NUTRITION RECOMMENDATIONS: Vital AF 1.2 @ 60ml/hr x 20 hrs to provide 1200ml, 1440kcal, 90g prot, 973ml free water * Rec 20 hr run time for GI rest. -> W/ improved GI status, rec Vital AF 1.2, an elemental and carb controlled TF -> monitor lytes and renal fxn closely, monitor need for renal TF -> TF @ goal will provide 1642mg K and 2025mg Phos -> HOB over 30 degrees/ water flush per MD -------- Trial of Osmolite 1.2 continue for now- Goal of 60ml/hr for 20 hrs (4 hrs bowel rest) to provide 1200ml, 1440 kcal, 67g pro, 984ml free H2O, -> Rec to add prosource 1 pack daily (11g pro) to better meet est pro needs. -> Monitor BG, K closely. Pt would require increased insulin coverage as TF at goal would provide 56g more carbs per day. ADDITIONAL RECOMMENDATIONS: * Per SNF: HT=63" WD=043 lbs (vs EMR wt of 166lbs) -> obtain re-calibrated bedscale wt, rec daily wt monitoring * Wound healing: con't Nephrovite + Garo BID/ Vit C dosing per Nephro * Monitor renal fxn and lytes closely w/ non-renal TF ->K low, phos wnl;updated mag level; rec increased insulin w/ BG labs * Daily wts w/ drop to 118-20 lbs, rec to recalibrate for accurate CBW * Consider DC Miralax if medically appropriate: +rectal tube (11) Uremia (12) CKD (chronic kidney disease) stage 5, GFR less than 15 ml/min (13) Colon distention Assessment & Plan: discussed with GI likely functional as having lots of loose bm rectal tube kub f/u s/p colonoscopy - findings reviewed with GI improved cont diet as tolerated repeat KUB Marked distention of the sigmoid colon. 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 No evidence of bowel wall thickening or pneumatosis 12 mm focus of contrast enhancement in the right pectineus muscle. While nonspecific in appearance, appearance raises concern for a possible pseudoaneurysm. Ill- defined thickening of the pectus medius muscle could indicate some intramuscular hemorrhage. The above findings were phoned to Dr. Urias at the time of interpretation Large bilateral pleural effusions Hazy pulmonary parenchymal opacities as well as dense consolidative opacities most likely represent pulmonary edema, but could represent pneumonia Evidence of anasarca elsewhere, with generalized edema of the subcutaneous fat Bladder wall thickening, raises concern for cystitis. Avalos catheter in place Colonic diverticulosis. No evidence of diverticulitis. Tracheostomy Pacemaker Gastrostomy Gastrostomy again demonstrated in satisfactory position. The stomach is otherwise unremarkable. The distal esophagus and duodenum are unremarkable. Ingested contrast reaches the colon. No small bowel distention or small bowel wall thickening. Interim placement of a rectal tube. There are a few colonic diverticula. No definite evidence of acute diverticulitis. The appendix is prominent in caliber, as previously No free or loculated intraperitoneal gas or fluid is evident. Again demonstrated is marked gaseous distention of the sigmoid colon which measures up to 12.6 cm in diameter, with the proximal aspect located laterally to the distal aspect, and caliber transition in the mesenteric root of both entry points. However, there is stool within the proximal portion which appears to be at least partially contrast opacified, and no definite persisting of the vascular pedicle demonstrated. The liver, gallbladder, bile ducts, pancreas, spleen, adrenals, kidneys are unremarkable. There are accessory splenules demonstrated. No retroperitoneal or mesenteric mass or adenopathy. No pelvic mass or adenopathy. The prostate is enlarged and protrudes into the inferior bladder. The bladder is thick-walled. Previously demonstrated Avalos catheter has been removed. Again demonstrated is a large right pleural effusion and a moderate to large left pleural effusion. Again demonstrated are compressive atelectatic changes of significant portions of both lower lobes. Pacemaker wires are seen within the heart. Previously demonstrated high attenuation focus within the right pectineus muscle is not evident. However, there is a low-attenuation area which measures 2 cm diameter centrally which is not evident previously. There is diffuse edema of the subcutaneous fat. This is less severe than was demonstrated previously. There are degenerative proliferative changes of the lumbar spine. Impression: Abnormal configuration of the sigmoid colon, with marked distention of a sigmoid, inversion of the relationships of the proximal and descending colon, and evidence of immediately apposed transition point raises concern for sigmoid volvulus. However, similarity to the prior exam, presence of what appears to be contrast opacified stool within the dilated segment, and lack of evidence of twisting of the vascular pedicle raises the possibility that this is baseline for this patient or possibly dysfunctional in nature. Correlate with clinical findings Enlarged prostate with protrusion into the bladder floor. Bladder neoplasm not completely excludable as a result Thick-walled bladder, may indicate cystitis or be due to chronic bladder lumen obstruction related to the above Abnormalities right pectineus muscle, with a 2 cm central low attenuation area. Note that previous exam have a high attenuation focus suspicious for a small pseudoaneurysm. 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 Colonic diverticulosis. No evidence of diverticulitis Gastrostomy in good position Rectal tube in good position Large right and moderate to large left pleural effusions. Resultant compressive pulmonary atelectatic changes or graft edema subcutaneous fat, less severe than was demonstrated on prior 08/17/2019 exam. Jonathan Urias Nov 15, 2019 17:23
--- NOTE | 2019-11-15 17:54 | NUR ---
NURSE NOTES: Patient discharged to [facility] per Dr. Condon. Report given to TAMICA High. Tele: [phone]. Per continue hospital med and continue rectal tube. Order noted and TAMICA High form [facility] made aware. RT at the bedside, made aware of vent setting. Family member at the bedside at 1600 made aware where patient going, given telephone number tele: [phone], room 18A.
--- NOTE | 2019-11-15 20:33 | General Progress Note ---
Subjective Allergies: Coded Allergies: No Known Allergies (Unverified , 06/10/19) Subjective above noted NAD on TF non communicative Objective Last 24 Hour Vital Signs Date Time Temp Pulse Resp B/P (MAP) Pulse Ox O2 Delivery O2 Flow Rate FiO2 11/15/19 16:00 95 11/15/19 16:00 97.6 94 18 140/62 (88) 100 11/15/19 16:00 24 11/15/19 16:00 Mechanical Ventilator Mechanical Ventilator Mechanical Ventilator 11/15/19 15:20 94 15 24 11/15/19 12:00 24 11/15/19 12:00 97.0 100 19 132/66 (88) 100 11/15/19 12:00 99 11/15/19 12:00 Mechanical Ventilator Mechanical Ventilator Mechanical Ventilator 11/15/19 11:30 97 14 24 11/15/19 08:00 24 11/15/19 08:00 97.2 119 19 114/71 (85) 100 11/15/19 08:00 119 11/15/19 08:00 Mechanical Ventilator Mechanical Ventilator Mechanical Ventilator 11/15/19 07:10 117 20 24 11/15/19 04:00 24 11/15/19 04:00 116 11/15/19 04:00 98.2 110 20 105/58 (74) 100 11/15/19 04:00 Mechanical Ventilator 11/15/19 03:00 118 19 24 11/15/19 00:00 98.6 115 20 123/70 (87) 100 11/15/19 00:00 118 11/15/19 00:00 Mechanical Ventilator 11/15/19 00:00 24 11/14/19 23:09 118 19 24 Intake and Output 11/14/19 11/15/19 19:00 07:00 Intake Total 705 ml 500 ml Output Total 2000 ml 400 ml Balance -1295 ml 100 ml Free Water 50 ml 50 ml IV Total 55 ml Tube Feeding 450 ml 450 ml Blood Product 150 ml Stool Total 400 ml Hemodialysis UF 2000 ml Laboratory Tests 11/15/19 00:15: POC Whole Blood Glucose 229H 11/15/19 02:30: White Blood Count 17.0H, Red Blood Count 4.48L, Hemoglobin 10.3L, Hematocrit 33.4L, Mean Corpuscular Volume 75L, Mean Corpuscular Hemoglobin 23.0L, Mean Corpuscular Hemoglobin Concent 30.8L, Red Cell Distribution Width 19.1H, Platelet Count 595H, Mean Platelet Volume 7.0, Neutrophils (%) (Auto) 75.2H, Lymphocytes (%) (Auto) 12.9L, Monocytes (%) (Auto) 7.0, Eosinophils (%) (Auto) 4.0H, Basophils (%) (Auto) 1.0 11/15/19 05:27: POC Whole Blood Glucose 224H 11/15/19 12:14: POC Whole Blood Glucose [Pending] Height (Feet): 5 Height (Inches): 10.00 Weight (Pounds): 123 Objective Debilitated AA man NCAT (+) trach coarse BS RR, tachy abd less distended, anasarca, (+) GT, (+) rectal tube ext contracted Assessment/Plan Assessment/Plan: Assessment - abdominal distention, due to colonic dysmotility, - colonoscopy negative to hepatic flexure - diarrhea - presumed TF related - abnormal LFT - ? etiology --> HIDA negative and CT negative - Anemia - leukocytosis - stool OB (+) - EGD --> gastritis - Renal failure - Anasarca - resp failure, trach - b/l pleural effusions - dysphagia, GT - encephalopathy, contracted - poor px Recommendations - continue TF - check hepatitis markers - negative - rectal tube - roll side to side as feasible (hard due to severe contractions) - Elevate HOB - f/u labs - PPI - supportive care Ronny Mustafa MD Nov 15, 2019 20:33
--- NOTE | 2019-11-16 01:01 | Cardiology Progress Note ---
Subjective DATE OF SERVICE: Nov 14, 2019 Asked to address tachycardia. Monitor: sinus tachycardia with VPacing Objective Last 24 Hour Vital Signs 130/60 103 20 No fever spikes HEENT: Thin Trach secretions RHYTHM: ST, other - paced LUNGS: bilateral rhonchi CARDIAC: regular rhythm, normal S1 and S2, tachycardia ABDOMEN: soft, no organomegaly, G-Tube intact EXTREMITIES: trace edema Laboratory Tests Test 11/15/19 02:30 11/15/19 05:27 11/15/19 12:14 White Blood Count 17.0 K/UL (4.8-10.8) H Red Blood Count 4.48 M/UL (4.70-6.10) L Hemoglobin 10.3 G/DL (14.2-18.0) L Hematocrit 33.4 % (42.0-52.0) L Mean Corpuscular Volume 75 FL (80-99) L Mean Corpuscular Hemoglobin 23.0 PG (27.0-31.0) L Mean Corpuscular Hemoglobin Concent 30.8 G/DL (32.0-36.0) L Red Cell Distribution Width 19.1 % (11.6-14.8) H Platelet Count 595 K/UL (150-450) H Mean Platelet Volume 7.0 FL (6.5-10.1) Neutrophils (%) (Auto) 75.2 % (45.0-75.0) H Lymphocytes (%) (Auto) 12.9 % (20.0-45.0) L Monocytes (%) (Auto) 7.0 % (1.0-10.0) Eosinophils (%) (Auto) 4.0 % (0.0-3.0) H Basophils (%) (Auto) 1.0 % (0.0-2.0) POC Whole Blood Glucose 224 MG/DL (74-106) H Pending Microbiology Date/Time Source Procedure Growth Status 11/14/19 13:59 Nasopharynx SARS-CoV-2 RdRp Gene Assay - Final Complete Assessment/Plan Assessment/Plan Secondary sinus tachycardia [facility] [employer] Pacemaker Anemia Vent-dep respiratory faiure Recovering sepsis HC assoc PNA No indication for anti-arrhythmics Continue management and optimiation of co-morbidities Kenny Chong MD Nov 16, 2019 01:01
--- NOTE | 2019-11-16 01:08 | Cardiology Progress Note ---
Subjective DATE OF SERVICE: Nov 15, 2019 Still with tachycardia, but improved Monitor: sinus tachycardia with VPacing On vent support via trach - with thin secretions. Objective Last 24 Hour Vital Signs Date Time Temp Pulse Resp B/P (MAP) Pulse Ox O2 Delivery O2 Flow Rate FiO2 11/15/19 16:00 95 11/15/19 16:00 97.6 94 18 140/62 (88) 100 11/15/19 16:00 24 11/15/19 16:00 Mechanical Ventilator Mechanical Ventilator Mechanical Ventilator 11/15/19 15:20 94 15 24 11/15/19 12:00 24 11/15/19 12:00 97.0 100 19 132/66 (88) 100 11/15/19 12:00 99 11/15/19 12:00 Mechanical Ventilator Mechanical Ventilator Mechanical Ventilator 11/15/19 11:30 97 14 24 11/15/19 08:00 24 11/15/19 08:00 97.2 119 19 114/71 (85) 100 11/15/19 08:00 119 11/15/19 08:00 Mechanical Ventilator Mechanical Ventilator Mechanical Ventilator 11/15/19 07:10 117 20 24 11/15/19 04:00 24 11/15/19 04:00 116 11/15/19 04:00 98.2 110 20 105/58 (74) 100 11/15/19 04:00 Mechanical Ventilator 11/15/19 03:00 118 19 24 HEENT: Thin Trach secretions RHYTHM: ST, other - paced LUNGS: bilateral rhonchi CARDIAC: regular rhythm, normal S1 and S2, tachycardia ABDOMEN: soft, no organomegaly, G-Tube intact EXTREMITIES: trace edema Laboratory Tests Test 11/15/19 02:30 11/15/19 05:27 11/15/19 12:14 White Blood Count 17.0 K/UL (4.8-10.8) H Red Blood Count 4.48 M/UL (4.70-6.10) L Hemoglobin 10.3 G/DL (14.2-18.0) L Hematocrit 33.4 % (42.0-52.0) L Mean Corpuscular Volume 75 FL (80-99) L Mean Corpuscular Hemoglobin 23.0 PG (27.0-31.0) L Mean Corpuscular Hemoglobin Concent 30.8 G/DL (32.0-36.0) L Red Cell Distribution Width 19.1 % (11.6-14.8) H Platelet Count 595 K/UL (150-450) H Mean Platelet Volume 7.0 FL (6.5-10.1) Neutrophils (%) (Auto) 75.2 % (45.0-75.0) H Lymphocytes (%) (Auto) 12.9 % (20.0-45.0) L Monocytes (%) (Auto) 7.0 % (1.0-10.0) Eosinophils (%) (Auto) 4.0 % (0.0-3.0) H Basophils (%) (Auto) 1.0 % (0.0-2.0) POC Whole Blood Glucose 224 MG/DL (74-106) H Pending Microbiology Date/Time Source Procedure Growth Status 11/14/19 13:59 Nasopharynx SARS-CoV-2 RdRp Gene Assay - Final Complete Assessment/Plan Assessment/Plan Secondary sinus tachycardia [employer] Pacemaker Anemia Vent-dep respiratory faiure Recovering sepsis HC assoc PNA No indication for anti-arrhythmics Continue management and optimiation of co-morbidities at subacute facility Kenny Chong MD Nov 16, 2019 01:08
[2019-11-16] MEDS ORDERED: Metoprolol Succinate XL 25mg tab ORAL SCH (09:00)
--- NOTE | 2019-11-18 17:56 | Discharge Summary ---
Discharge Summary Discharge Summary _ DATE OF ADMISSION: 08/08/2019 DATE OF DISCHARGE: 11/15/2019 DISCHARGED BY: Dr. Yris Ramirez CONSULTANTS: Dr. Farnaz Mustafa [facility] HOSPITAL COURSE: Patient is a 79-year-old male, who presented to ED due to abnormal labs. Patient is comatose, vent dependent, with history of renal failure, hypertension, chronic anemia, hypertensive heart disease, history of sepsis, pressure ulcers and chronic ventilator dependence. Upon evaluation at ED, vital signs were stable. Blood work showed WBC elevated to 33. Hemoglobin 6.5, hematocrit 22. Platelet count 513. Sodium level was 121. Potassium 4.5. BUN 146 and creatinine 3.5. D-dimer was elevated to 2. Ferritin 356. LDH 148. CRP 18. proBNP 7513. Urinalysis showed pyuria. EKG was in paced rhythm. Chest x-ray showed right lower lobe infiltrate. He was started on IV antibiotics. He was admitted for evaluation of pneumonia. He was admitted to [facility]. He was started on Zosyn. IV vancomycin was discontinued. Kidney function was monitored. Patient had close to end-stage renal failure. GFR 17. He was given 3% saline solution. He was started on blood transfusion. He was given proton pump inhibitors. On admission, patient presented with generalized edema. Patient has an unstageable pressure injury to the right elbow. Deep tissue pressure injury to the left buttock. Hypertrophic scar with areas of hyperpigmentation in the sacrum. Patient's penis and scrotum are edematous, enlarged and weeping serous exudates from numerous sites. He was given local wound care. He was placed on APM/BECCA mattress overlay with frequent repositioning and offloading. Nutrition was optimized. Stool OB positive. On 08/14/2019, he underwent EGD with findings of mild gastritis. He was resumed on tube feedings. He was eventually started on Epogen. Patient creatinine clearance was 19. Patient would require hemodialysis. A right femoral temporary hemodialysis catheter was inserted on 08/14/2019. Patient was eventually started on dialysis. Patient continued to have elevated WBC. Sputum culture showed growth of Providencia, Pseudomonas, Serratia and Streptococcus. COVID-19 test was negative x2. Blood culture with coagulase-negative staph likely contaminated. He was continued on linezolid and Zosyn. Leukemia was ruled out. Patient continued to have diarrhea. C. difficile Was negative. CT of the chest, abdomen and pelvis showed marked distention of the sigmoid colon. Possibly functional basis, no evidence of bowel wall thickening or pneumatosis. On 08/30/2019, a permacath was inserted to the right internal jugular vein. The temporary right femoral catheter was removed. On 08/31/2019, he underwent colonoscopy. There was no significant pathology identified. Colonoscopy was completed to hepatic flexure. Biopsies obtained from the colon were negative. Patient completed antibiotic treatment and was observed off antibiotics. Leukocytosis increased. Patient was restarted on Zosyn. Hemodialysis tip culture showed growth of Klebsiella. Patient was given gentamicin. There was a spike in LFTs. Abdominal ultrasound showed a nonmobile gallbladder echogenic foci. HIDA scan was negative. CT of the abdomen showed abnormal configuration of sigmoid colloid. LFTs improved off statin. Hepatitis panel was negative. Patient had difficult placement. Sputum culture showed growth of Morganella and K PC. Patient was started on Zosyn, vancomycin and acyclovir for growing warts. Antibiotics were adjusted. Patient was given cefepime and inhaled colistin. Patient had episodes of tachycardia while V pacing. Per code enforcement officer, and there is no indication for antiarrhythmics. Placement was arranged. Patient was eventually discharged back to SNF. FINAL DIAGNOSES: Recovering sepsis Healthcare associated pneumonia Proteus/Providentia pneumonia, negative for COVID-19 End-stage renal disease with initiation of hemodialysis Severe protein calorie malnutrition Chronic vent dependence Abdominal distention due to colonic dysmotility Diarrhea presumed to be tube feeding related Elevated LFTs Status post EGD and colonoscopy Anasarca Dysphagia on G-tube Hyponatremia Anemia of chronic disease Elevated d-dimer Hyperlipidemia Secondary sinus tachycardia [place] pacemaker Deep tissue pressure injury, present on admission DISPOSITION: Patient was discharged to [facility]. DISCHARGE MEDICATIONS: Refer to Discharge Medication List. I have been assigned to complete a discharge summary on this account, I was not involved with the patient's management.--JABARI Gipson Jacqueline Robles NP Nov 18, 2019 17:56
== END 2019-11-15 17:54 | DRG 720 ==
LOC: EDUNIT# 18:54 → EDBD 18:54 → EMR 19:30 → EDBEDREQ 20:38 → 2W 22:00 → EDBEDREQ 22:47
PROC: 5A1955Z Respiratory Ventilation, Greater than 96 Consecutive Hours (ICD-10-PCS; principal; 2019-08-08)
PROC: 06HM33Z Insertion of Infusion Device into Right Femoral Vein, Percutaneous Approach (ICD-10-PCS; 2019-08-14)
PROC: 5A1D70Z Performance of Urinary Filtration, Intermittent, Less than 6 Hours Per Day (ICD-10-PCS; 2019-08-15)
PROC: 0DD68ZX Extraction of Stomach, Via Natural or Artificial Opening Endoscopic, Diagnostic (ICD-10-PCS; 2019-08-15)
PROC: 05HM33Z Insertion of Infusion Device into Right Internal Jugular Vein, Percutaneous Approach (ICD-10-PCS; 2019-08-30)
PROC: B513ZZA Fluoroscopy of Right Jugular Veins, Guidance (ICD-10-PCS; 2019-08-30)
PROC: 0JH63XZ Insertion of Tunneled Vascular Access Device into Chest Subcutaneous Tissue and Fascia, Percutaneous Approach (ICD-10-PCS; 2019-08-30)
PROC: 0DDN8ZX Extraction of Sigmoid Colon, Via Natural or Artificial Opening Endoscopic, Diagnostic (ICD-10-PCS; 2019-08-31)
PROC: 0DDP8ZX Extraction of Rectum, Via Natural or Artificial Opening Endoscopic, Diagnostic (ICD-10-PCS; 2019-08-31)
PROC: 06PYX3Z Removal of Infusion Device from Lower Vein, External Approach (ICD-10-PCS; 2019-09-01)
DX: A41.9 Sepsis, unspecified organism (principal); E43 Unspecified severe protein-calorie malnutrition; N17.9 Acute kidney failure, unspecified; G93.1 Anoxic brain damage, not elsewhere classified; K29.71 Gastritis, unspecified, with bleeding; E87.1 Hypo-osmolality and hyponatremia; D62 Acute posthemorrhagic anemia; N39.0 Urinary tract infection, site not specified; T82.7XXA Infection and inflammatory reaction due to other cardiac and vascular devices, implants and grafts, initial encounter; R65.21 Severe sepsis with septic shock; I13.11 Hypertensive heart and chronic kidney disease without heart failure, with stage 5 chronic kidney disease, or end stage renal disease; N18.5 Chronic kidney disease, stage 5; Z99.2 Dependence on renal dialysis; D63.1 Anemia in chronic kidney disease; J96.10 Chronic respiratory failure, unspecified whether with hypoxia or hypercapnia; Z99.11 Dependence on respirator [ventilator] status; Z93.0 Tracheostomy status; Z93.1 Gastrostomy status; R40.3 Persistent vegetative state; J15.6 Pneumonia due to other Gram-negative bacteria; J15.1 Pneumonia due to Pseudomonas; Y95 Nosocomial condition; L89.152 Pressure ulcer of sacral region, stage 2; L89.023 Pressure ulcer of left elbow, stage 3; L89.013 Pressure ulcer of right elbow, stage 3; L89.893 Pressure ulcer of other site, stage 3; Z20.828 Contact with and (suspected) exposure to other viral communicable diseases; Z74.01 Bed confinement status; R13.10 Dysphagia, unspecified; R19.7 Diarrhea, unspecified; Z95.0 Presence of cardiac pacemaker; R00.0 Tachycardia, unspecified; E78.5 Hyperlipidemia, unspecified; Z22.322 Carrier or suspected carrier of Methicillin resistant Staphylococcus aureus; A63.0 Anogenital (venereal) warts; E87.6 Hypokalemia; R31.9 Hematuria, unspecified; J90 Pleural effusion, not elsewhere classified; Z68.1 Body mass index [BMI] 19.9 or less, adult
CPT/HCPCS: 36415; 36600; 71045; 71260; 74018; 74177; 76000; 76700; 76770; 78266; 80048; 80053; 80076; 80170; 80202; 81003; 82150; 82270; 82550; 82565; 82575; 82728; 82803; 82962; 83540; 83550; 83605; 83615; 83690; 83735; 83880; 84100; 84165; 84443; 84484; 85007; 85025; 85379; 85610; 85651; 85730; 86039; 86140; 86665; 86705; 86706; 86707; 86709; 86803; 86850; 86900; 86901; 86920; 87040; 87070; 87081; 87086; 87181; 87205; 87324; 87340; 87496; 87529; 93005; 93970; 94002; 94003; 94150; 96361; 96365; 96368; 99285; J1815; J7030; J8499; U0002